=== PATIENT | female | born 1955 | race Caucasian/White ===

== ENCOUNTER 2017-06-27 09:00 | Outpatient (RCR) | payer OTHER, SELFPAY ==
[2017-06-20 08:55] VITALS: BP 141/103; PULSE 100; RESP 18; TEMP 37.2; BMI 68.3
--- NOTE | 2017-06-20 09:57 | PCM.WC.HP ---
(1) soft tissue radiation injury Status: Chronic Current Visit: Yes (2) Soft tissue radionecrosis Status: Chronic Current Visit: Yes Code(s): L59.8 - Other specified disorders of the skin and subcutaneous tissue related to radiation; Y84.2 - Radiological procedure and radiotherapy as the cause of abnormal reaction of the patient, or of later complication, without mention of misadventure at the time of the procedure (3) Amputee, above knee Status: Chronic Current Visit: Yes Qualifiers: Laterality: right Qualified Code(s): Z89.611 - Acquired absence of right leg above knee Code(s): Z89.619 - Acquired absence of unspecified leg above knee (4) Obesity (BMI 30.0-34.9) Status: Chronic Current Visit: Yes Code(s): E66.9 - Obesity, unspecified (5) Ulcer of right groin Status: Acute Current Visit: Yes Qualifiers: Non-pressure ulcer stage: with fat layer exposed Qualified Code(s): L98.492 - Non-pressure chronic ulcer of skin of other sites with fat layer exposed Code(s): L98.499 - Non-pressure chronic ulcer of skin of other sites with unspecified severity (6) GERD (gastroesophageal reflux disease) Status: Chronic Current Visit: No Code(s): K21.9 - Gastro-esophageal reflux disease without esophagitis (7) Hyperlipidemia Status: Chronic Current Visit: No Code(s): E78.5 - Hyperlipidemia, unspecified (8) History of melanoma Status: Chronic Current Visit: Yes Code(s): Z85.820 - Personal history of malignant melanoma of skin (9) History of uterine cancer Status: Chronic Current Visit: No Code(s): Z85.42 - Personal history of malignant neoplasm of other parts of uterus History of Present Illness Date of Service: 06/20/17 Chief Complaint: 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 The patient underwent excision of her melanoma with lymphadenectomy in the right groin. She also underwent lengthy radiation treatments at the [facility] in [place], [place]. Melanoma recurred, patient was subsequently treated with monoclonal antibodies in 1984. 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 Treatment included local ulcer care and hyperbaric oxygen therapy. She underwent a total of nearly 90 treatments of hyperbaric oxygen therapy. It is known that she tolerated the therapies well, and derived significant benefit. She relates no history of claustrophobia, or other complications related to the hyperbaric oxygen therapy treatments. She has no history of barotrauma to lungs, ears, etc. Her medical history has been reviewed, without any evidence of contraindications to hyperbaric oxygen therapy. Past Medical History Past Medical History: Chronic Problems soft tissue radiation injury (Chronic) Soft tissue radionecrosis (Chronic) Amputee, above knee (Chronic) Obesity (BMI 30.0-34.9) (Chronic) GERD (gastroesophageal reflux disease) (Chronic) Hyperlipidemia (Chronic) History of melanoma (Chronic) History of uterine cancer (Chronic) Past Medical History: Patient has a history of hyperlipidemia, gastroesophageal reflux disease, and melanoma of the right calf. She also has a history of uterine cancer, for which she is undergone prior total hysterectomy in 2000. Patient's history is negative for myocardial infarction, congestive heart failure, hypertension, cerebrovascular accident, diabetes mellitus, pulmonary disease, renal disease, and thyroid disease. Surgical History: - - Patient has previously undergone total hysterectomy. She is undergone excision of melanoma from the right calf, with lymphadenectomy of the right groin in the s. She subsequently required surgeries of the right thigh related to osteomyelitis, MRSA infection, and radiation injury to the right femoral artery. Ultimately, the patient required right above-knee amputation, performed in 2000. She also has a remote history of open reduction and internal fixation of a right ankle fracture. Allergies/Adverse Reactions: Allergies No Known Allergies Allergy (Verified 06/20/17 09:22) Home Medications: Ambulatory Orders Medication Instructions Recorded Famotidine 20 mg PO 06/20/17 Pravastatin [Pravachol] 20 mg PO DAILY 06/20/17 - Family History Maternal - - The patient's mother is 98 years of age and relatively healthy. The patient's father at age of 79 with a history of cardiomyopathy. Social History: The patient is . She denies the use of tobacco products, but is a former smoker. She consumes several mixed drinks daily. 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 Lives: Alone Smoking Status: Former smoker Tobacco Use: Non-smoker Drugs: None Review of Systems Constitutional: Denies: Chills, Fever, Weight Change Eyes: Denies: Pain, Vision Change HEENT: Denies: Difficulty Hearing, Difficulty Swallowing, Sinus Congestion Cardiovascular: Denies: Chest Pain, Palpitations Respiratory: Denies: Cough, Shortness of Breath Gastrointestinal: Denies: Diarrhea, Nausea, Vomiting Genitourinary: Denies: Dysuria, Hematuria Endocrine: Denies: Heat/ Cold Intolerance, Polydipsia, Polyuria Hematologic/ Lymphatic: Denies: Easy Bruising, Easy Bleeding - Physical Exam Vital Signs Temp Pulse Resp BP 98.9 F 100 18 141/103 H 06/20/17 08:55 06/20/17 08:55 06/20/17 08:55 06/20/17 08:55 General: Alert, Oriented x3, Cooperative, No apparent distress, Well developed, Well nourished HEENT: Atraumatic, PERRLA, EOMI, Normocephalic, TM's Clear, - - Otoscopy has been performed, and tympanic membranes appeared normal. Oral: Moist Mucosa, No Gingival or Mucosal Lesions/ Ulcerations Neck: Supple, No JVD, Negative Carotid Bruits, No Nodes, No Nuchal Rigidity, Trachea Midline Lungs: Clear to auscultation, Normal air movement, No rhonchi, No wheeze, No rales Cardiovascular: Regular rate, Regular Rhythm, Normal S1, Normal S2, No murmurs Abdomen: Soft, Non Tender, Non-Distended Extremities: No clubbing, No cyanosis, No edema, No Calf Tenderness - Left, - - A well-healed right above-knee amputation is noted. Patient has scarring in the right upper thigh and right groin. There is a small open ulceration in the right groin crease. There is no obvious sign of infection or cellulitis. There is a moderate amount of biofilm bioburden. Dimensions are documented elsewhere. Wound Measurements and Assessment WC - Nurse 1 - General Ulcer Measurement Start: 06/20/17 08:32 Freq: Status: Active Protocol: Activity Type Activity Date Activity User E-Sign Co-Sign Detail Recorded Client Recorded Date Recorded By Document 06/20/17 08:55 DL [id number] 06/20/17 09:18 DL 06/20/17 08:55 Wound Center Nurse 1 [Ulcer Assessment Protocol: WC.WD.LOC] #1 R Groin -Current Size (cm) - Length 1.6 -Current Size (cm) - Width 0.3 -Current Size (cm) - Depth 0.1 -Total Square Cm 0.48 -Photo Taken Yes -Classification - Thickness Unclassifiable (Eschar Covered ) -Exudate Amt None Present (0 %) -Wound Margin Thickened -Granulation Amt None Present (0 %) -Necrosis Amt Large (67-100%) -Necrotic Tissue Type Adherent Slough -Texture (Blanche-wound Skin Appearance) Scarring -Moisture (Blanche-wound Skin Appearance No Abnormality ) -Color (Blanche-wound Skin Appearance) No Abnormality -Temperature (Blanche-wound Skin No Abnormality Appearance) (Pt Warm) -Ulcer Cleansing Rinsed/ Irrigated with Saline -Foul Odor after Cleansing No -Anesthetic Used 4% Lidocaine Solution - Nurse 2 - General Ulcer CM Notes Start: 06/20/17 08:32 Freq: Status: Active Protocol: Activity Type Activity Date Activity User E-Sign Co-Sign Detail Recorded Client Recorded Date Recorded By Document 06/20/17 09:39 [id number] 06/20/17 09:50 06/20/17 09:39 Wound Center Nurse 2 [Procedure/Treatment] -Time 09:42 -Correct Patient Yes -Correct Side, Site, Position Yes -Correct Procedure Yes -Procedure Performed Yes -Type of Procedure Debridement -Clinical Debridement Subcutaneous -Post Debridement Size (cm) - Length 1.7 -Post Debridement Size (cm) - Width 0.4 -Post Debridement Size (cm) - Depth 0.1 -Total Square Cm 0.68 -Wound/Ulcer Outcome Not Healed -Ulcer Cleansing Rinsed/ Irrigated with Saline -Foul Odor after Cleansing No -Bioengineered Tissue No -Cetacaine [place] No -Topical Lidocaine (%) 4 -Lidocaine (ml) 5 -Bleeding Controlled with Pressure -Treatment Response Procedure Tolerated Well [See Physician Procedure note for Specifics] Pain Scale: 0-10 Numeric [Pain] -Is Patient Pain Free? Yes Neurological: Cranial nerves II-XII grossly intact, Neuro grossly intact Psych/Mental Status: Normal Affect, Appropriate, Alert and oriented to time, place, person, mood and affect Debridement Note Post-Debridement Measurements/Treatment WC - Nurse 2 - General Ulcer CM Notes Start: 06/20/17 08:32 Freq: Status: Active Protocol: Activity Type Activity Date Activity User E-Sign Co-Sign Detail Recorded Client Recorded Date Recorded By Document 06/20/17 09:39 [id number] 06/20/17 09:50 06/20/17 09:39 Wound Center Nurse 2 #1 R Groin -Time 09:42 -Correct Patient Yes -Correct Side, Site, Position Yes -Correct Procedure Yes -Procedure Performed Yes -Type of Procedure Debridement -Clinical Debridement Subcutaneous -Post Debridement Size (cm) - Length 1.7 -Post Debridement Size (cm) - Width 0.4 -Post Debridement Size (cm) - Depth 0.1 -Total Square Cm 0.68 -Wound/Ulcer Outcome Not Healed -Ulcer Cleansing Rinsed/ Irrigated with Saline -Foul Odor after Cleansing No -Bioengineered Tissue No -Cetacaine [place] No -Topical Lidocaine (%) 4 -Lidocaine (ml) 5 -Bleeding Controlled with Pressure -Treatment Response Procedure Tolerated Well Pain Scale: 0-10 Numeric Is Patient Pain Free? Yes Laterality: Right - Groin Type of Debridement: Excisional debridement Anesthesia Used: 4% Lidocaine Solution Depth: Down to and including healthy tissue, in the subcutaneous layer Percentage of wound debrided: 100 Instrument Used: 3mm curette Severity: Fat Layer Exposed Amount of bleeding with debridement: Mild Bleeding Controlled with: Compression and gauze Patient tolerated procedure well Assessment/Plan Active Problems soft tissue radiation injury (Chronic) Soft tissue radionecrosis (Chronic) Amputee, above knee (Chronic) Obesity (BMI 30.0-34.9) (Chronic) Ulcer of right groin (Acute) History of melanoma (Chronic) Assessment: This is a 62-year-old female with a somewhat complicated and complex past medical history, documented above. In the 1969's, she was diagnosed with malignant melanoma of the right calf, with metastasis to lymph nodes in the right groin. She underwent excision of the melanoma with right groin lymphadenectomy. She was subsequently treated with a long series of radiation treatments to the right groin. As result, she has developed soft tissue radiation injury, and has previously been treated at our wound center in the past with a series of approximately 90 hyperbaric oxygen therapy treatments, in 2011. She presents at this time with apparent recurrence of soft tissue radionecrosis in the right groin. Plan: Initial treatment is to be by means of collagen hydrogel applied by the patient topically on a daily basis. Patient is to return weekly, at which time it is anticipated that serial debridements will be performed. We are to obtain routine laboratory assessment, which will allow for nutritional assessment, etc. The patient appears to be a candidate for hyperbaric oxygen therapy for soft tissue radionecrosis, and efforts will be made to preauthorized such treatments. Because the patient has undergone such treatments in the past, and has tolerated them without difficulty, there appeared to be no contraindications to such intervention. The patient has a full understanding of the indications for and the risks of hyperbaric oxygen therapy, and has indicated her desire to proceed. Influenza vaccine was not administered today. Patient is not a smoker. She stands 5 feet 7 inches tall. She weighs 198 pounds. Her BMI is 31, which places her in a class I category. Weight loss has been recommended. She is to collaborate with her primary care physician in this regard.
--- NOTE | 2017-06-20 10:09 | HP.PCM_ITS ---
(1) soft tissue radiation injury Status: Chronic Current Visit: Yes (2) Soft tissue radionecrosis Status: Chronic Current Visit: Yes Code(s): L59.8 - Other specified disorders of the skin and subcutaneous tissue related to radiation; Y84.2 - Radiological procedure and radiotherapy as the cause of abnormal reaction of the patient, or of later complication, without mention of misadventure at the time of the procedure (3) Amputee, above knee Status: Chronic Current Visit: Yes Qualifiers: Laterality: right Qualified Code(s): Z89.611 - Acquired absence of right leg above knee Code(s): Z89.619 - Acquired absence of unspecified leg above knee (4) Obesity (BMI 30.0-34.9) Status: Chronic Current Visit: Yes Code(s): E66.9 - Obesity, unspecified (5) Ulcer of right groin Status: Acute Current Visit: Yes Qualifiers: Non-pressure ulcer stage: with fat layer exposed Qualified Code(s): L98.492 - Non-pressure chronic ulcer of skin of other sites with fat layer exposed Code(s): L98.499 - Non-pressure chronic ulcer of skin of other sites with unspecified severity (6) GERD (gastroesophageal reflux disease) Status: Chronic Current Visit: No Code(s): K21.9 - Gastro-esophageal reflux disease without esophagitis (7) Hyperlipidemia Status: Chronic Current Visit: No Code(s): E78.5 - Hyperlipidemia, unspecified (8) History of melanoma Status: Chronic Current Visit: Yes Code(s): Z85.820 - Personal history of malignant melanoma of skin (9) History of uterine cancer Status: Chronic Current Visit: No Code(s): Z85.42 - Personal history of malignant neoplasm of other parts of uterus History of Present Illness Date of Service: 06/20/17 Chief Complaint: 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 The patient underwent excision of her melanoma with lymphadenectomy in the right groin. She also underwent lengthy radiation treatments at the [facility] in [place], [place]. Melanoma recurred, patient was subsequently treated with monoclonal antibodies in 1984. 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 Treatment included local ulcer care and hyperbaric oxygen therapy. She underwent a total of nearly 90 treatments of hyperbaric oxygen therapy. It is known that she tolerated the therapies well, and derived significant benefit. She relates no history of claustrophobia, or other complications related to the hyperbaric oxygen therapy treatments. She has no history of barotrauma to lungs , ears, etc. Her medical history has been reviewed, without any evidence of contraindications to hyperbaric oxygen therapy. Past Medical History Past Medical History: Chronic Problems soft tissue radiation injury (Chronic) Soft tissue radionecrosis (Chronic) Amputee, above knee (Chronic) Obesity (BMI 30.0-34.9) (Chronic) GERD (gastroesophageal reflux disease) (Chronic) Hyperlipidemia (Chronic) History of melanoma (Chronic) History of uterine cancer (Chronic) Past Medical History: Patient has a history of hyperlipidemia, gastroesophageal reflux disease, and melanoma of the right calf. She also has a history of uterine cancer, for which she is undergone prior total hysterectomy in 2000. Patient's history is negative for myocardial infarction, congestive heart failure, hypertension, cerebrovascular accident, diabetes mellitus, pulmonary disease, renal disease, and thyroid disease. Surgical History: - - Patient has previously undergone total hysterectomy. She is undergone excision of melanoma from the right calf, with lymphadenectomy of the right groin in the s. She subsequently required surgeries of the right thigh related to osteomyelitis, MRSA infection, and radiation injury to the right femoral artery. Ultimately, the patient required right above-knee amputation, performed in 2000. She also has a remote history of open reduction and internal fixation of a right ankle fracture. Allergies/Adverse Reactions: Allergies No Known Allergies Allergy (Verified 06/20/17 09:22) Home Medications: Ambulatory Orders Medication Instructions Recorded Famotidine 20 mg PO 06/20/17 Pravastatin [Pravachol] 20 mg PO DAILY 06/20/17 - Family History Maternal - - The patient's mother is 98 years of age and relatively healthy. The patient 's father at age of 79 with a history of cardiomyopathy. Social History: The patient is . She denies the use of tobacco products , but is a former smoker. She consumes several mixed drinks daily. 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 Lives: Alone Smoking Status: Former smoker Tobacco Use: Non-smoker Drugs: None Review of Systems Constitutional: Denies: Chills, Fever, Weight Change Eyes: Denies: Pain, Vision Change HEENT: Denies: Difficulty Hearing, Difficulty Swallowing, Sinus Congestion Cardiovascular: Denies: Chest Pain, Palpitations Respiratory: Denies: Cough, Shortness of Breath Gastrointestinal: Denies: Diarrhea, Nausea, Vomiting Genitourinary: Denies: Dysuria, Hematuria Endocrine: Denies: Heat/ Cold Intolerance, Polydipsia, Polyuria Hematologic/ Lymphatic: Denies: Easy Bruising, Easy Bleeding - Physical Exam Vital Signs Temp Pulse Resp BP 98.9 F 100 18 141/103 H 06/20/17 08:55 06/20/17 08:55 06/20/17 08:55 06/20/17 08:55 General: Alert, Oriented x3, Cooperative, No apparent distress, Well developed, Well nourished HEENT: Atraumatic, PERRLA, EOMI, Normocephalic, TM's Clear, - - Otoscopy has been performed, and tympanic membranes appeared normal. Oral: Moist Mucosa, No Gingival or Mucosal Lesions/ Ulcerations Neck: Supple, No JVD, Negative Carotid Bruits, No Nodes, No Nuchal Rigidity, Trachea Midline Lungs: Clear to auscultation, Normal air movement, No rhonchi, No wheeze, No rales Cardiovascular: Regular rate, Regular Rhythm, Normal S1, Normal S2, No murmurs Abdomen: Soft, Non Tender, Non-Distended Extremities: No clubbing, No cyanosis, No edema, No Calf Tenderness - Left, - - A well-healed right above-knee amputation is noted. Patient has scarring in the right upper thigh and right groin. There is a small open ulceration in the right groin crease. There is no obvious sign of infection or cellulitis. There is a moderate amount of biofilm bioburden. Dimensions are documented elsewhere. Wound Measurements and Assessment WC - Nurse 1 - General Ulcer Measurement Start: 06/20/17 08:32 Freq: Status: Active Protocol: Activity Type Activity Date Activity User E-Sign Co-Sign Detail Recorded Client Recorded Date Recorded By Document 06/20/17 08:55 DL [id number] 06/20/17 09:18 DL 06/20/17 08:55 Wound Center Nurse 1 [Ulcer Assessment Protocol: WC.WD.LOC] #1 R Groin -Current Size (cm) - Length 1.6 -Current Size (cm) - Width 0.3 -Current Size (cm) - Depth 0.1 -Total Square Cm 0.48 -Photo Taken Yes -Classification - Thickness Unclassifiable (Eschar Covered ) -Exudate Amt None Present (0 %) -Wound Margin Thickened -Granulation Amt None Present (0 %) -Necrosis Amt Large (67-100%) -Necrotic Tissue Type Adherent Slough -Texture (Blanche-wound Skin Appearance) Scarring -Moisture (Blanche-wound Skin Appearance No Abnormality ) -Color (Blanche-wound Skin Appearance) No Abnormality -Temperature (Blanche-wound Skin No Abnormality Appearance) (Pt Warm) -Ulcer Cleansing Rinsed/ Irrigated with Saline -Foul Odor after Cleansing No -Anesthetic Used 4% Lidocaine Solution - Nurse 2 - General Ulcer CM Notes Start: 06/20/17 08:32 Freq: Status: Active Protocol: Activity Type Activity Date Activity User E-Sign Co-Sign Detail Recorded Client Recorded Date Recorded By Document 06/20/17 09:39 [id number] 06/20/17 09:50 06/20/17 09:39 Wound Center Nurse 2 [Procedure/Treatment] -Time 09:42 -Correct Patient Yes -Correct Side, Site, Position Yes -Correct Procedure Yes -Procedure Performed Yes -Type of Procedure Debridement -Clinical Debridement Subcutaneous -Post Debridement Size (cm) - Length 1.7 -Post Debridement Size (cm) - Width 0.4 -Post Debridement Size (cm) - Depth 0.1 -Total Square Cm 0.68 -Wound/Ulcer Outcome Not Healed -Ulcer Cleansing Rinsed/ Irrigated with Saline -Foul Odor after Cleansing No -Bioengineered Tissue No -Cetacaine [place] No -Topical Lidocaine (%) 4 -Lidocaine (ml) 5 -Bleeding Controlled with Pressure -Treatment Response Procedure Tolerated Well [See Physician Procedure note for Specifics] Pain Scale: 0-10 Numeric [Pain] -Is Patient Pain Free? Yes Neurological: Cranial nerves II-XII grossly intact, Neuro grossly intact Psych/Mental Status: Normal Affect, Appropriate, Alert and oriented to time, place, person, mood and affect Debridement Note Post-Debridement Measurements/Treatment WC - Nurse 2 - General Ulcer CM Notes Start: 06/20/17 08:32 Freq: Status: Active Protocol: Activity Type Activity Date Activity User E-Sign Co-Sign Detail Recorded Client Recorded Date Recorded By Document 06/20/17 09:39 [id number] 06/20/17 09:50 06/20/17 09:39 Wound Center Nurse 2 #1 R Groin -Time 09:42 -Correct Patient Yes -Correct Side, Site, Position Yes -Correct Procedure Yes -Procedure Performed Yes -Type of Procedure Debridement -Clinical Debridement Subcutaneous -Post Debridement Size (cm) - Length 1.7 -Post Debridement Size (cm) - Width 0.4 -Post Debridement Size (cm) - Depth 0.1 -Total Square Cm 0.68 -Wound/Ulcer Outcome Not Healed -Ulcer Cleansing Rinsed/ Irrigated with Saline -Foul Odor after Cleansing No -Bioengineered Tissue No -Cetacaine [place] No -Topical Lidocaine (%) 4 -Lidocaine (ml) 5 -Bleeding Controlled with Pressure -Treatment Response Procedure Tolerated Well Pain Scale: 0-10 Numeric Is Patient Pain Free? Yes Laterality: Right - Groin Type of Debridement: Excisional debridement Anesthesia Used: 4% Lidocaine Solution Depth: Down to and including healthy tissue, in the subcutaneous layer Percentage of wound debrided: 100 Instrument Used: 3mm curette Severity: Fat Layer Exposed Amount of bleeding with debridement: Mild Bleeding Controlled with: Compression and gauze Patient tolerated procedure well Assessment/Plan Active Problems soft tissue radiation injury (Chronic) Soft tissue radionecrosis (Chronic) Amputee, above knee (Chronic) Obesity (BMI 30.0-34.9) (Chronic) Ulcer of right groin (Acute) History of melanoma (Chronic) Assessment: This is a 62-year-old female with a somewhat complicated and complex past medical history, documented above. In the 1969's, she was diagnosed with malignant melanoma of the right calf, with metastasis to lymph nodes in the right groin. She underwent excision of the melanoma with right groin lymphadenectomy. She was subsequently treated with a long series of radiation treatments to the right groin. As result, she has developed soft tissue radiation injury, and has previously been treated at our wound center in the past with a series of approximately 90 hyperbaric oxygen therapy treatments , in 2011. She presents at this time with apparent recurrence of soft tissue radionecrosis in the right groin. Plan: Initial treatment is to be by means of collagen hydrogel applied by the patient topically on a daily basis. Patient is to return weekly, at which time it is anticipated that serial debridements will be performed. We are to obtain routine laboratory assessment, which will allow for nutritional assessment, etc. The patient appears to be a candidate for hyperbaric oxygen therapy for soft tissue radionecrosis, and efforts will be made to preauthorized such treatments. Because the patient has undergone such treatments in the past, and has tolerated them without difficulty, there appeared to be no contraindications to such intervention. The patient has a full understanding of the indications for and the risks of hyperbaric oxygen therapy, and has indicated her desire to proceed. Influenza vaccine was not administered today. Patient is not a smoker. She stands 5 feet 7 inches tall. She weighs 198 pounds. Her BMI is 31, which places her in a class I category. Weight loss has been recommended. She is to collaborate with her primary care physician in this regard.
[2017-06-21 18:50] LABS: Hematocrit 43.2 % (37-47); Hemoglobin 14.5 g/dl (12.0-15.0); Mean Corp Hgb Conc 33.6 g/gl (32-36); Mean Corpuscular Hgb 29.6 pg (27.0-32.0); Mean Corpuscular Volume 88.2 fL (81-99); Platelet Count 323 K/mm3 (150-450); RBC Distribution Width CV 13.7 % (11.6-14.6); RBC Distribution Width SD 43.3 fl (35.1-43.9); White Blood Count 14.7 K/mm3 (4.4-11.0)
[2017-06-21 18:51] LABS: Scan Indicated on CBC? Y/N NO
[2017-06-21 19:16] LABS: ALB/GLOB Ratio 1.1 RATIO (0.9-2.4); AST(SGOT) 12 U/L (15-37); Alanine Aminotransfer ALT/SGPT 30 U/L (12-78); Albumin, Serum 4.4 g/dL (3.4-5.0); Alkaline Phosphatase 85 U/L (45-117); Anion Gap 9 (5-15); BUN 16 mg/dL (7-18); BUN/Creat Ratio 27.5 RATIO (10-20); Calcium,Total 9.3 mg/dL (8.5-10.1); Chloride 103 mmol/L (98-107); Creatinine, Serum 0.58 mg/dL (0.55-1.02); EST Glomerular Filtration Rate 111 mL/min (>60); Est Glom Filt Rate - Afr Amer 135 mL/min (>60); Globulin 3.9 g/dL (2.2-4.2); Glucose 109 mg/dL (70-110); Potassium 3.5 mmol/L (3.5-5.1); Prealbumin 36.5 mg/dL (20.0-40.0); Protein, Total 8.3 g/dL (6.4-8.2); Sodium Level 137 mmol/L (136-145)
[2017-06-27 09:12] VITALS: BP 127/72; PULSE 90; RESP 18; TEMP 35.9; BMI 68.3
--- NOTE | 2017-06-27 09:44 | PCM.WC.HP ---
(1) soft tissue radiation injury Status: Chronic Current Visit: Yes (2) Soft tissue radionecrosis Status: Chronic Current Visit: Yes Code(s): L59.8 - Other specified disorders of the skin and subcutaneous tissue related to radiation; Y84.2 - Radiological procedure and radiotherapy as the cause of abnormal reaction of the patient, or of later complication, without mention of misadventure at the time of the procedure (3) Amputee, above knee Status: Chronic Current Visit: Yes Qualifiers: Laterality: right Qualified Code(s): Z89.611 - Acquired absence of right leg above knee Code(s): Z89.619 - Acquired absence of unspecified leg above knee (4) Obesity (BMI 30.0-34.9) Status: Chronic Current Visit: Yes Code(s): E66.9 - Obesity, unspecified (5) Ulcer of right groin Status: Acute Current Visit: Yes Qualifiers: Non-pressure ulcer stage: with fat layer exposed Qualified Code(s): L98.492 - Non-pressure chronic ulcer of skin of other sites with fat layer exposed Code(s): L98.499 - Non-pressure chronic ulcer of skin of other sites with unspecified severity (6) GERD (gastroesophageal reflux disease) Status: Chronic Current Visit: No Code(s): K21.9 - Gastro-esophageal reflux disease without esophagitis (7) Hyperlipidemia Status: Chronic Current Visit: No Code(s): E78.5 - Hyperlipidemia, unspecified (8) History of melanoma Status: Chronic Current Visit: Yes Code(s): Z85.820 - Personal history of malignant melanoma of skin (9) History of uterine cancer Status: Chronic Current Visit: No Code(s): Z85.42 - Personal history of malignant neoplasm of other parts of uterus History of Present Illness Date of Service: 06/27/17 Chief Complaint: 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 Of significance, the patient was diagnosed with melanoma of the right calf in the s. 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 The patient underwent excision of her melanoma with lymphadenectomy in the right groin. She also underwent lengthy radiation treatments at the [facility] in [place], [place]. Melanoma recurred, and the patient was subsequently treated with monoclonal antibodies in 1984. 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 Treatment included local ulcer care and hyperbaric oxygen therapy. She underwent a total of nearly 90 treatments of hyperbaric oxygen therapy. It is known that she tolerated the therapies well, and derived significant benefit. She relates no history of claustrophobia, or other complications related to the hyperbaric oxygen therapy treatments. She has no history of barotrauma to lungs, ears, etc. Her medical history has been reviewed, without any evidence of contraindications to hyperbaric oxygen therapy. 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 She is undergone excision of melanoma from the right calf, with lymphadenectomy of the right groin in the 1969's. She subsequently required surgeries of the right thigh related to osteomyelitis, MRSA infection, and radiation injury to the right femoral artery. Ultimately, the patient required right above-knee amputation, performed in 2000. She also has a remote history of open reduction and internal fixation of a right ankle fracture. Allergies/Adverse Reactions: Allergies No Known Allergies Allergy (Verified 06/20/17 09:22) Home Medications: Ambulatory Orders Medication Instructions Recorded Famotidine 20 mg PO 06/20/17 Pravastatin [Pravachol] 20 mg PO DAILY 06/20/17 - Family History Maternal - - The patient's mother is 98 years of age and relatively healthy. The patient's father at age of 79 with a history of cardiomyopathy. Lives: Alone Smoking Status: Former smoker Tobacco Use: Non-smoker Drugs: None Review of Systems Constitutional: Denies: Chills, Fever, Weight Change Eyes: Denies: Pain, Vision Change HEENT: Denies: Difficulty Hearing, Difficulty Swallowing, Sinus Congestion Cardiovascular: Denies: Chest Pain, Palpitations Respiratory: Denies: Cough, Shortness of Breath Gastrointestinal: Denies: Diarrhea, Nausea, Vomiting Genitourinary: Denies: Dysuria, Hematuria Endocrine: Denies: Heat/ Cold Intolerance, Polydipsia, Polyuria Hematologic/ Lymphatic: Denies: Easy Bruising, Easy Bleeding - Physical Exam Vital Signs Temp Pulse Resp BP 96.6 F L 90 18 127/72 H 06/27/17 09:12 06/27/17 09:12 06/27/17 09:12 06/27/17 09:12 General: Alert, Oriented x3, Cooperative, No apparent distress, Well developed, Well nourished HEENT: Atraumatic, PERRLA, EOMI, Normocephalic Oral: Moist Mucosa Neck: No JVD Lungs: Normal air movement Abdomen: Non-Distended Extremities: No clubbing, No cyanosis, No edema, - - There is some chronic erythema in the right groin, thought to be due to radiation changes. The ulceration in the right groin reveals no evidence of infection or cellulitis. However, the patient the ulceration appears somewhat ischemic. Dimensions are documented elsewhere. Wound Measurements and Assessment - Nurse 1 - General Ulcer Measurement Start: 06/20/17 08:32 Freq: Status: Active Protocol: Activity Type Activity Date Activity User E-Sign Co-Sign Detail Recorded Client Recorded Date Recorded By Document 06/27/17 09:12 [id number] 06/27/17 09:15 06/27/17 09:12 Wound Center Nurse 1 [Ulcer Assessment Protocol: KISHA.WD.LOC] #1 R Groin -Combined with other wound No -Current Size (cm) - Length 1.2 -Current Size (cm) - Width 0.2 -Current Size (cm) - Depth 0.1 -Total Square Cm 0.24 -Photo Taken No -Epithelialization None Present -Tunneling No -Undermining/Tunneling No -Circular Undermining No -Classification - Thickness Full Thickness without Exposed Support Structure -Exudate Amt Small (1-33%) -Exudate Type Serosanguineous -Wound Margin Fibrotic Scar, Thickened Scar -Granulation Amt None Present (0 %) -Granulation Quality N/A -Necrosis Amt None Present (0 %) -Necrotic Tissue Type Adherent Slough -Structure Exposed None/Limited to Skin Breakdown -Texture (Blanche-wound Skin Appearance) Scarring -Moisture (Blanche-wound Skin Appearance Dry/Scaly ) -Color (Blanche-wound Skin Appearance) Erythema -Temperature (Blanche-wound Skin No Abnormality Appearance) (Pt Warm) -Tenderness on Palpation (Blanche-wound No Skin Appearance) -Ulcer Cleansing Rinsed/ Irrigated with Saline -Foul Odor after Cleansing No [Edema Assessment] -Lower Limb Edema Present No WC - Nurse 2 - General Ulcer CM Notes Start: 06/20/17 08:32 Freq: Status: Active Protocol: Activity Type Activity Date Activity User E-Sign Co-Sign Detail Recorded Client Recorded Date Recorded By Document 06/27/17 09:28 [id number] 06/27/17 09:43 06/27/17 09:28 Wound Center Nurse 2 [Procedure/Treatment] #1 R Groin -Time 09:28 -Correct Patient Yes -Correct Side, Site, Position Yes -Correct Procedure Yes -Procedure Performed Yes -Type of Procedure Debridement -Clinical Debridement Subcutaneous -Post Debridement Size (cm) - Length 1.3 -Post Debridement Size (cm) - Width 0.3 -Post Debridement Size (cm) - Depth 0.1 -Total Square Cm 0.39 -Wound/Ulcer Outcome Not Healed -Ulcer Cleansing Rinsed/ Irrigated with Saline -Foul Odor after Cleansing No -Cetacaine [place] No -Topical Lidocaine (%) 4 -Lidocaine (ml) 5 -Bleeding Controlled with NA -Treatment Response Procedure Tolerated Well [See Physician Procedure note for Specifics] Pain Scale: 0-10 Numeric [Pain] -Is Patient Pain Free? Yes Neurological: Cranial nerves II-XII grossly intact, Neuro grossly intact Psych/Mental Status: Normal Affect, Appropriate, Alert and oriented to time, place, person, mood and affect Debridement Note Post-Debridement Measurements/Treatment WC - Nurse 2 - General Ulcer CM Notes Start: 06/20/17 08:32 Freq: Status: Active Protocol: Activity Type Activity Date Activity User E-Sign Co-Sign Detail Recorded Client Recorded Date Recorded By Document 06/20/17 09:39 [id number] 06/20/17 09:50 JS Document 06/27/17 09:28 [id number] 06/27/17 09:43 06/20/17 06/27/17 09:39 09:28 Wound Center Nurse 2 #1 R Groin -Time 09:42 09:28 -Correct Patient Yes Yes -Correct Side, Site, Position Yes Yes -Correct Procedure Yes Yes -Procedure Performed Yes Yes -Type of Procedure Debridement Debridement -Clinical Debridement Subcutaneous Subcutaneous -Post Debridement Size (cm) - Length 1.7 1.3 -Post Debridement Size (cm) - Width 0.4 0.3 -Post Debridement Size (cm) - Depth 0.1 0.1 -Total Square Cm 0.68 0.39 -Wound/Ulcer Outcome Not Healed Not Healed -Ulcer Cleansing Rinsed/ Rinsed/ Irrigated with Irrigated with Saline Saline -Foul Odor after Cleansing No No -Bioengineered Tissue No -Cetacaine [place] No No -Topical Lidocaine (%) 4 4 -Lidocaine (ml) 5 5 -Bleeding Controlled with Pressure NA -Treatment Response Procedure Procedure Tolerated Well Tolerated Well Pain Scale: 0-10 Numeric Is Patient Pain Free? Yes Yes Laterality: Right - Groin Type of Debridement: Excisional debridement Anesthesia Used: 4% Lidocaine Solution Depth: Down to and including healthy tissue, in the subcutaneous layer Percentage of wound debrided: 100 Instrument Used: 3mm curette Severity: Fat Layer Exposed Amount of bleeding with debridement: Mild Bleeding Controlled with: Compression and gauze Patient tolerated procedure well Assessment/Plan Active Problems soft tissue radiation injury (Chronic) Soft tissue radionecrosis (Chronic) Amputee, above knee (Chronic) Obesity (BMI 30.0-34.9) (Chronic) Ulcer of right groin (Acute) History of melanoma (Chronic) Assessment: This is a 62-year-old female with a somewhat complicated and complex past medical history, documented above. In the 1970's, she was diagnosed with malignant melanoma of the right calf, with metastasis to lymph nodes in the right groin. She underwent excision of the melanoma with right groin lymphadenectomy. She was subsequently treated with a long series of radiation treatments to the right groin. As result, she has developed soft tissue radiation injury, and has previously been treated at our wound center in the past with a series of approximately 90 hyperbaric oxygen therapy treatments, in 2011. She presents at this time with apparent recurrence of soft tissue radionecrosis in the right groin. Plan: We are to transition to the use of collagen hydrogel, as the base of the ulceration appears somewhat ischemic and with evidence of nonviable necrotic tissue. This nonviable tissue was not easily removed by means of debridement today. The patient's recent laboratory studies have been reviewed, and it is noted that her white blood count was 14.7. There is no obvious sign of infection. However, we have obtained swab cultures of the wound, both aerobic and anaerobic. We will await the results of cultures. Patient is to return in 2 weeks. We anticipate that serial debridements will continue. The patient appears to be a candidate for hyperbaric oxygen therapy for soft tissue radionecrosis, and efforts will be made to preauthorized such treatments. Because the patient has undergone such treatments in the past, and has tolerated them without difficulty, there appeared to be no contraindications to such intervention. The patient has a full understanding of the indications for and the risks of hyperbaric oxygen therapy, and has indicated her desire to proceed. Influenza vaccine was not administered today. Patient is not a smoker. She stands 5 feet 7 inches tall. She weighs 198 pounds. Her BMI is 31, which places her in a class I category. Weight loss has been recommended. She is to collaborate with her primary care physician in this regard.
--- NOTE | 2017-06-27 09:53 | HP.PCM_ITS ---
(1) soft tissue radiation injury Status: Chronic Current Visit: Yes (2) Soft tissue radionecrosis Status: Chronic Current Visit: Yes Code(s): L59.8 - Other specified disorders of the skin and subcutaneous tissue related to radiation; Y84.2 - Radiological procedure and radiotherapy as the cause of abnormal reaction of the patient, or of later complication, without mention of misadventure at the time of the procedure (3) Amputee, above knee Status: Chronic Current Visit: Yes Qualifiers: Laterality: right Qualified Code(s): Z89.611 - Acquired absence of right leg above knee Code(s): Z89.619 - Acquired absence of unspecified leg above knee (4) Obesity (BMI 30.0-34.9) Status: Chronic Current Visit: Yes Code(s): E66.9 - Obesity, unspecified (5) Ulcer of right groin Status: Acute Current Visit: Yes Qualifiers: Non-pressure ulcer stage: with fat layer exposed Qualified Code(s): L98.492 - Non-pressure chronic ulcer of skin of other sites with fat layer exposed Code(s): L98.499 - Non-pressure chronic ulcer of skin of other sites with unspecified severity (6) GERD (gastroesophageal reflux disease) Status: Chronic Current Visit: No Code(s): K21.9 - Gastro-esophageal reflux disease without esophagitis (7) Hyperlipidemia Status: Chronic Current Visit: No Code(s): E78.5 - Hyperlipidemia, unspecified (8) History of melanoma Status: Chronic Current Visit: Yes Code(s): Z85.820 - Personal history of malignant melanoma of skin (9) History of uterine cancer Status: Chronic Current Visit: No Code(s): Z85.42 - Personal history of malignant neoplasm of other parts of uterus History of Present Illness Date of Service: 06/27/17 Chief Complaint: 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 Of significance, the patient was diagnosed with melanoma of the right calf in the s. 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 The patient underwent excision of her melanoma with lymphadenectomy in the right groin. She also underwent lengthy radiation treatments at the [facility] in [place], [place]. Melanoma recurred, and the patient was subsequently treated with monoclonal antibodies in 1984. 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 Treatment included local ulcer care and hyperbaric oxygen therapy. She underwent a total of nearly 90 treatments of hyperbaric oxygen therapy. It is known that she tolerated the therapies well, and derived significant benefit. She relates no history of claustrophobia, or other complications related to the hyperbaric oxygen therapy treatments. She has no history of barotrauma to lungs , ears, etc. Her medical history has been reviewed, without any evidence of contraindications to hyperbaric oxygen therapy. 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 She is undergone excision of melanoma from the right calf, with lymphadenectomy of the right groin in the 1969's. She subsequently required surgeries of the right thigh related to osteomyelitis, MRSA infection, and radiation injury to the right femoral artery. Ultimately, the patient required right above-knee amputation, performed in 2000. She also has a remote history of open reduction and internal fixation of a right ankle fracture. Allergies/Adverse Reactions: Allergies No Known Allergies Allergy (Verified 06/20/17 09:22) Home Medications: Ambulatory Orders Medication Instructions Recorded Famotidine 20 mg PO 06/20/17 Pravastatin [Pravachol] 20 mg PO DAILY 06/20/17 - Family History Maternal - - The patient's mother is 98 years of age and relatively healthy. The patient 's father at age of 79 with a history of cardiomyopathy. Lives: Alone Smoking Status: Former smoker Tobacco Use: Non-smoker Drugs: None Review of Systems Constitutional: Denies: Chills, Fever, Weight Change Eyes: Denies: Pain, Vision Change HEENT: Denies: Difficulty Hearing, Difficulty Swallowing, Sinus Congestion Cardiovascular: Denies: Chest Pain, Palpitations Respiratory: Denies: Cough, Shortness of Breath Gastrointestinal: Denies: Diarrhea, Nausea, Vomiting Genitourinary: Denies: Dysuria, Hematuria Endocrine: Denies: Heat/ Cold Intolerance, Polydipsia, Polyuria Hematologic/ Lymphatic: Denies: Easy Bruising, Easy Bleeding - Physical Exam Vital Signs Temp Pulse Resp BP 96.6 F L 90 18 127/72 H 06/27/17 09:12 06/27/17 09:12 06/27/17 09:12 06/27/17 09:12 General: Alert, Oriented x3, Cooperative, No apparent distress, Well developed, Well nourished HEENT: Atraumatic, PERRLA, EOMI, Normocephalic Oral: Moist Mucosa Neck: No JVD Lungs: Normal air movement Abdomen: Non-Distended Extremities: No clubbing, No cyanosis, No edema, - - There is some chronic erythema in the right groin, thought to be due to radiation changes. The ulceration in the right groin reveals no evidence of infection or cellulitis. However, the patient the ulceration appears somewhat ischemic. Dimensions are documented elsewhere. Wound Measurements and Assessment - Nurse 1 - General Ulcer Measurement Start: 06/20/17 08:32 Freq: Status: Active Protocol: Activity Type Activity Date Activity User E-Sign Co-Sign Detail Recorded Client Recorded Date Recorded By Document 06/27/17 09:12 [id number] 06/27/17 09:15 06/27/17 09:12 Wound Center Nurse 1 [Ulcer Assessment Protocol: KISHA.WD.LOC] #1 R Groin -Combined with other wound No -Current Size (cm) - Length 1.2 -Current Size (cm) - Width 0.2 -Current Size (cm) - Depth 0.1 -Total Square Cm 0.24 -Photo Taken No -Epithelialization None Present -Tunneling No -Undermining/Tunneling No -Circular Undermining No -Classification - Thickness Full Thickness without Exposed Support Structure -Exudate Amt Small (1-33%) -Exudate Type Serosanguineous -Wound Margin Fibrotic Scar, Thickened Scar -Granulation Amt None Present (0 %) -Granulation Quality N/A -Necrosis Amt None Present (0 %) -Necrotic Tissue Type Adherent Slough -Structure Exposed None/Limited to Skin Breakdown -Texture (Blanche-wound Skin Appearance) Scarring -Moisture (Blanche-wound Skin Appearance Dry/Scaly ) -Color (Blanche-wound Skin Appearance) Erythema -Temperature (Blanche-wound Skin No Abnormality Appearance) (Pt Warm) -Tenderness on Palpation (Blanche-wound No Skin Appearance) -Ulcer Cleansing Rinsed/ Irrigated with Saline -Foul Odor after Cleansing No [Edema Assessment] -Lower Limb Edema Present No WC - Nurse 2 - General Ulcer CM Notes Start: 06/20/17 08:32 Freq: Status: Active Protocol: Activity Type Activity Date Activity User E-Sign Co-Sign Detail Recorded Client Recorded Date Recorded By Document 06/27/17 09:28 [id number] 06/27/17 09:43 06/27/17 09:28 Wound Center Nurse 2 [Procedure/Treatment] #1 R Groin -Time 09:28 -Correct Patient Yes -Correct Side, Site, Position Yes -Correct Procedure Yes -Procedure Performed Yes -Type of Procedure Debridement -Clinical Debridement Subcutaneous -Post Debridement Size (cm) - Length 1.3 -Post Debridement Size (cm) - Width 0.3 -Post Debridement Size (cm) - Depth 0.1 -Total Square Cm 0.39 -Wound/Ulcer Outcome Not Healed -Ulcer Cleansing Rinsed/ Irrigated with Saline -Foul Odor after Cleansing No -Cetacaine Durbin No -Topical Lidocaine (%) 4 -Lidocaine (ml) 5 -Bleeding Controlled with NA -Treatment Response Procedure Tolerated Well [See Physician Procedure note for Specifics] Pain Scale: 0-10 Numeric [Pain] -Is Patient Pain Free? Yes Neurological: Cranial nerves II-XII grossly intact, Neuro grossly intact Psych/Mental Status: Normal Affect, Appropriate, Alert and oriented to time, place, person, mood and affect Debridement Note Post-Debridement Measurements/Treatment WC - Nurse 2 - General Ulcer CM Notes Start: 06/20/17 08:32 Freq: Status: Active Protocol: Activity Type Activity Date Activity User E-Sign Co-Sign Detail Recorded Client Recorded Date Recorded By Document 06/20/17 09:39 [id number] 06/20/17 09:50 JS Document 06/27/17 09:28 [id number] 06/27/17 09:43 06/20/17 06/27/17 09:39 09:28 Wound Center Nurse 2 #1 R Groin -Time 09:42 09:28 -Correct Patient Yes Yes -Correct Side, Site, Position Yes Yes -Correct Procedure Yes Yes -Procedure Performed Yes Yes -Type of Procedure Debridement Debridement -Clinical Debridement Subcutaneous Subcutaneous -Post Debridement Size (cm) - Length 1.7 1.3 -Post Debridement Size (cm) - Width 0.4 0.3 -Post Debridement Size (cm) - Depth 0.1 0.1 -Total Square Cm 0.68 0.39 -Wound/Ulcer Outcome Not Healed Not Healed -Ulcer Cleansing Rinsed/ Rinsed/ Irrigated with Irrigated with Saline Saline -Foul Odor after Cleansing No No -Bioengineered Tissue No -Cetacaine Durbin No No -Topical Lidocaine (%) 4 4 -Lidocaine (ml) 5 5 -Bleeding Controlled with Pressure NA -Treatment Response Procedure Procedure Tolerated Well Tolerated Well Pain Scale: 0-10 Numeric Is Patient Pain Free? Yes Yes Laterality: Right - Groin Type of Debridement: Excisional debridement Anesthesia Used: 4% Lidocaine Solution Depth: Down to and including healthy tissue, in the subcutaneous layer Percentage of wound debrided: 100 Instrument Used: 3mm curette Severity: Fat Layer Exposed Amount of bleeding with debridement: Mild Bleeding Controlled with: Compression and gauze Patient tolerated procedure well Assessment/Plan Active Problems soft tissue radiation injury (Chronic) Soft tissue radionecrosis (Chronic) Amputee, above knee (Chronic) Obesity (BMI 30.0-34.9) (Chronic) Ulcer of right groin (Acute) History of melanoma (Chronic) Assessment: This is a 62-year-old female with a somewhat complicated and complex past medical history, documented above. In the 1970's, she was diagnosed with malignant melanoma of the right calf, with metastasis to lymph nodes in the right groin. She underwent excision of the melanoma with right groin lymphadenectomy. She was subsequently treated with a long series of radiation treatments to the right groin. As result, she has developed soft tissue radiation injury, and has previously been treated at our wound center in the past with a series of approximately 90 hyperbaric oxygen therapy treatments , in 2011. She presents at this time with apparent recurrence of soft tissue radionecrosis in the right groin. Plan: We are to transition to the use of collagen hydrogel, as the base of the ulceration appears somewhat ischemic and with evidence of nonviable necrotic tissue. This nonviable tissue was not easily removed by means of debridement today. The patient's recent laboratory studies have been reviewed, and it is noted that her white blood count was 14.7. There is no obvious sign of infection. However, we have obtained swab cultures of the wound, both aerobic and anaerobic. We will await the results of cultures. Patient is to return in 2 weeks. We anticipate that serial debridements will continue. The patient appears to be a candidate for hyperbaric oxygen therapy for soft tissue radionecrosis, and efforts will be made to preauthorized such treatments. Because the patient has undergone such treatments in the past, and has tolerated them without difficulty, there appeared to be no contraindications to such intervention. The patient has a full understanding of the indications for and the risks of hyperbaric oxygen therapy, and has indicated her desire to proceed. Influenza vaccine was not administered today. Patient is not a smoker. She stands 5 feet 7 inches tall. She weighs 198 pounds. Her BMI is 31 , which places her in a class I category. Weight loss has been recommended. She is to collaborate with her primary care physician in this regard.
--- NOTE | 2017-08-07 22:28 | PCM.HBO.PN ---
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 Progress: Treatment #11 hyperbaric oxygen therapy. Tolerance of hyperbaric oxygen therapy: Hyperbaric oxygen therapy was administered as per the facility's protocol. The patient tolerated hyperbaric oxygen therapy well, without complications or complaints. Upon emergence from the hyperbaric chamber, the patient's vital signs remained stable. The patient was discharged in good condition. 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 The patient's father at age of 79 with a history of cardiomyopathy. 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
== END 2017-07-09 23:59 ==
LOC: WC 09:00
PROVIDERS: Family Provider Family Medicine; PCP Family Medicine; Visit Provider Surgery
DX: L59.8 Other specified disorders of the skin and subcutaneous tissue related to radiation (principal); Y84.2 Radiological procedure and radiotherapy as the cause of abnormal reaction of the patient, or of later complication, without mention of misadventure at the time of the procedure; Z89.611 Acquired absence of right leg above knee; K21.9 Gastro-esophageal reflux disease without esophagitis; E78.5 Hyperlipidemia, unspecified; Z85.42 Personal history of malignant neoplasm of other parts of uterus; Z85.820 Personal history of malignant melanoma of skin; L98.492 Non-pressure chronic ulcer of skin of other sites with fat layer exposed; Z86.14 Personal history of Methicillin resistant Staphylococcus aureus infection; E66.9 Obesity, unspecified; Z68.31 Body mass index [BMI] 31.0-31.9, adult; Z71.3 Dietary counseling and surveillance; Z87.891 Personal history of nicotine dependence
CPT/HCPCS: 11042; 80053; 84134; 85027; 87070; 87075; 87077; 87186; 87205; 99212; G0463

== ENCOUNTER 2017-08-08 10:00 | Outpatient (RCR) | payer OTHER, SELFPAY ==
[2017-07-10 01:33] VITALS: BP 127/72; PULSE 90; RESP 18; TEMP 35.9; BMI 68.3
[2017-07-11 10:09] VITALS: BP 139/87; PULSE 95; RESP 18; TEMP 37; BMI 68.3
--- NOTE | 2017-07-11 10:37 | PCM.WC.HP ---
(1) soft tissue radiation injury Status: Chronic Current Visit: Yes (2) Soft tissue radionecrosis Status: Chronic Current Visit: Yes Code(s): L59.8 - Other specified disorders of the skin and subcutaneous tissue related to radiation; Y84.2 - Radiological procedure and radiotherapy as the cause of abnormal reaction of the patient, or of later complication, without mention of misadventure at the time of the procedure (3) Amputee, above knee Status: Chronic Current Visit: Yes Qualifiers: Laterality: right Code(s): Z89.619 - Acquired absence of unspecified leg above knee (4) Obesity (BMI 30.0-34.9) Status: Chronic Current Visit: No Code(s): E66.9 - Obesity, unspecified (5) Ulcer of right groin Status: Acute Current Visit: Yes Qualifiers: Non-pressure ulcer stage: with fat layer exposed Code(s): L98.499 - Non-pressure chronic ulcer of skin of other sites with unspecified severity (6) GERD (gastroesophageal reflux disease) Status: Chronic Current Visit: No Code(s): K21.9 - Gastro-esophageal reflux disease without esophagitis (7) Hyperlipidemia Status: Chronic Current Visit: No Code(s): E78.5 - Hyperlipidemia, unspecified (8) History of melanoma Status: Chronic Current Visit: No Code(s): Z85.820 - Personal history of malignant melanoma of skin (9) History of uterine cancer Status: Chronic Current Visit: No Code(s): Z85.42 - Personal history of malignant neoplasm of other parts of uterus History of Present Illness Date of Service: 07/11/17 Chief Complaint: 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 The patient underwent excision of her melanoma with lymphadenectomy in the right groin. She also underwent lengthy radiation treatments at the [facility] in [place], [place]. Melanoma recurred, and the patient was subsequently treated with monoclonal antibodies in 1984. 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 Treatment included local ulcer care and hyperbaric oxygen therapy. She underwent a total of nearly 90 treatments of hyperbaric oxygen therapy. It is known that she tolerated the therapies well, and derived significant benefit. She relates no history of claustrophobia, or other complications related to the hyperbaric oxygen therapy treatments. She has no history of barotrauma to lungs, ears, etc. Her medical history has been reviewed, without any evidence of contraindications to hyperbaric oxygen therapy. 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 She is undergone excision of melanoma from the right calf, with lymphadenectomy of the right groin in the 1969's. She subsequently required surgeries of the right thigh related to osteomyelitis, MRSA infection, and radiation injury to the right femoral artery. Ultimately, the patient required right above-knee amputation, performed in 2000. She also has a remote history of open reduction and internal fixation of a right ankle fracture. Allergies/Adverse Reactions: Allergies No Known Allergies Allergy (Verified 06/20/17 09:22) Home Medications: Ambulatory Orders Medication Instructions Recorded Famotidine 20 mg PO 06/20/17 Pravastatin [Pravachol] 20 mg PO DAILY 06/20/17 - Family History Maternal - - The patient's mother is 98 years of age and relatively healthy. The patient's father at age of 79 with a history of cardiomyopathy. Smoking Status: Former smoker Tobacco Use: Non-smoker Review of Systems Constitutional: Denies: Chills, Fever, Weight Change Eyes: Denies: Pain, Vision Change HEENT: Denies: Difficulty Hearing, Difficulty Swallowing, Sinus Congestion Cardiovascular: Denies: Chest Pain, Palpitations Respiratory: Denies: Cough, Shortness of Breath Gastrointestinal: Denies: Diarrhea, Nausea, Vomiting Genitourinary: Denies: Dysuria, Hematuria Endocrine: Denies: Heat/ Cold Intolerance, Polydipsia, Polyuria Hematologic/ Lymphatic: Denies: Easy Bruising, Easy Bleeding - Physical Exam Vital Signs Temp Pulse Resp BP 98.6 F 95 18 139/87 H 07/11/17 10:09 07/11/17 10:09 07/11/17 10:07/11/17 10:09 General: Alert, Oriented x3, Cooperative, No apparent distress, Well developed, Well nourished HEENT: Atraumatic, PERRLA, EOMI, Normocephalic Oral: Moist Mucosa Neck: No JVD Lungs: Normal air movement Abdomen: Non-Distended Extremities: No clubbing, No cyanosis, No edema, No Calf Tenderness, - - Patient is noted to have a right above-knee amputation. The ulceration is noted in the right groin, relatively unchanged in size or appearance. Dimensions are documented elsewhere. There is no sign of infection or cellulitis. The base of the ulceration demonstrates nonviable tissue. There is a moderate amount of biofilm bioburden. Skin: No rashes Wound Measurements and Assessment - Nurse 1 - General Ulcer Measurement Start: 07/11/17 10:09 Freq: Status: Active Protocol: Activity Type Activity Date Activity User E-Sign Co-Sign Detail Recorded Client Recorded Date Recorded By Document 07/11/17 10:09 [id number] 07/11/17 10:18 DL 07/11/17 10:09 Wound Center Nurse 1 [Ulcer Assessment Protocol: WC.WD.LOC] #1 R Groin -Current Size (cm) - Length 1.5 -Current Size (cm) - Width 0.5 -Current Size (cm) - Depth 0.2 -Total Square Cm 0.75 -Photo Taken No -Exudate Amt None Present (0 %) -Wound Margin Thickened -Granulation Amt None Present (0 %) -Necrosis Amt Large (67-100%) -Necrotic Tissue Type Adherent Slough -Structure Exposed N/A -Texture (Blanche-wound Skin Appearance) Scarring -Moisture (Blanche-wound Skin Appearance No Abnormality ) -Color (Blanche-wound Skin Appearance) No Abnormality -Temperature (Blanche-wound Skin No Abnormality Appearance) (Pt Warm) -Ulcer Cleansing Rinsed/ Irrigated with Saline -Foul Odor after Cleansing No -Anesthetic Used 4% Lidocaine Solution - Nurse 2 - General Ulcer CM Notes Start: 07/11/17 10:09 Freq: Status: Active Protocol: Activity Type Activity Date Activity User E-Sign Co-Sign Detail Recorded Client Recorded Date Recorded By Document 07/11/17 10:30 [id number] 07/11/17 10:33 07/11/17 10:30 Wound Center Nurse 2 [Procedure/Treatment] -Time 10:30 -Correct Patient Yes -Correct Side, Site, Position Yes -Correct Procedure Yes -Procedure Performed Yes -Type of Procedure Debridement -Clinical Debridement Subcutaneous -Post Debridement Size (cm) - Length 1.6 -Post Debridement Size (cm) - Width 0.6 -Post Debridement Size (cm) - Depth 0.1 -Total Square Cm 0.96 -Wound/Ulcer Outcome Not Healed -Ulcer Cleansing Rinsed/ Irrigated with Saline -Foul Odor after Cleansing No -Bioengineered Tissue No -Topical Lidocaine (%) 4 -Lidocaine (ml) 5 -Bleeding Controlled with NA -Treatment Response Procedure Tolerated Well [See Physician Procedure note for Specifics] Pain Scale: 0-10 Numeric [Pain] -Is Patient Pain Free? Yes Neurological: Cranial nerves II-XII grossly intact, Neuro grossly intact Psych/Mental Status: Normal Affect, Appropriate, Alert and oriented to time, place, person, mood and affect Debridement Note Post-Debridement Measurements/Treatment WC - Nurse 2 - General Ulcer CM Notes Start: 07/11/17 10:09 Freq: Status: Active Protocol: Activity Type Activity Date Activity User E-Sign Co-Sign Detail Recorded Client Recorded Date Recorded By Document 07/11/17 10:30 [id number] 07/11/17 10:33 07/11/17 10:30 Wound Center Nurse 2 #1 R Groin -Time 10:30 -Correct Patient Yes -Correct Side, Site, Position Yes -Correct Procedure Yes -Procedure Performed Yes -Type of Procedure Debridement -Clinical Debridement Subcutaneous -Post Debridement Size (cm) - Length 1.6 -Post Debridement Size (cm) - Width 0.6 -Post Debridement Size (cm) - Depth 0.1 -Total Square Cm 0.96 -Wound/Ulcer Outcome Not Healed -Ulcer Cleansing Rinsed/ Irrigated with Saline -Foul Odor after Cleansing No -Bioengineered Tissue No -Topical Lidocaine (%) 4 -Lidocaine (ml) 5 -Bleeding Controlled with NA -Treatment Response Procedure Tolerated Well Pain Scale: 0-10 Numeric Is Patient Pain Free? Yes Laterality: Right - Groin Type of Debridement: Excisional debridement Anesthesia Used: 4% Lidocaine Solution Depth: Down to and including healthy tissue, in the subcutaneous layer Percentage of wound debrided: 100 Instrument Used: 5mm curette Severity: Fat Layer Exposed Amount of bleeding with debridement: Mild Bleeding Controlled with: Compression and gauze Patient tolerated procedure well Assessment/Plan Active Problems soft tissue radiation injury (Chronic) Soft tissue radionecrosis (Chronic) Amputee, above knee (Chronic) Ulcer of right groin (Acute) Assessment: This is a 62-year-old female with a somewhat complicated and complex past medical history, documented above. In the 1970's, she was diagnosed with malignant melanoma of the right calf, with metastasis to lymph nodes in the right groin. She underwent excision of the melanoma with right groin lymphadenectomy. She was subsequently treated with a long series of radiation treatments to the right groin. As result, she has developed soft tissue radiation injury, and has previously been treated at our wound center in the past with a series of approximately 90 hyperbaric oxygen therapy treatments, in 2011. She presents at this time with recurrence of soft tissue radionecrosis in the right groin. Plan: We are to continue the use of collagenase Santyl, as the base of the ulceration appears somewhat ischemic and with evidence of nonviable necrotic tissue. This nonviable tissue was not easily removed by means of debridement today. The patient's recent laboratory studies have been reviewed, and it is noted that her white blood count was 14.7. There is no obvious sign of infection. However, we have obtained swab cultures of the wound, both aerobic and anaerobic. Recent culture results were positive for staph aureus. The patient is currently in the midst of a course of doxycycline. The patient appears to be a candidate for hyperbaric oxygen therapy for soft tissue radionecrosis, and efforts will be made to preauthorized such treatments. Because the patient has undergone such treatments in the past, and has tolerated them without difficulty, there appeared to be no contraindications to such intervention. The patient has a full understanding of the indications for and the risks of hyperbaric oxygen therapy, and has indicated her desire to proceed. HBO therapy will be initiated next week. Influenza vaccine was not administered today. Patient is not a smoker. She stands 5 feet 7 inches tall. She weighs 198 pounds. Her BMI is 31, which places her in a class I category. Weight loss has been recommended. She is to collaborate with her primary care physician in this regard.
[2017-07-19 11:50] VITALS: BP 127/95; BP 132/87; PULSE 78; PULSE 95; RESP 16; TEMP 36.3; TEMP 36.7
[2017-07-20 08:46] VITALS: BP 125/80; BP 126/97; PULSE 105; PULSE 85; RESP 16; RESP 18; TEMP 36.2
--- NOTE | 2017-07-20 15:42 | PCM.HBO.PN ---
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 Progress: Today represents her 2nd session. Tolerance of hyperbaric oxygen therapy: Hyperbaric oxygen therapy was administered as per the facility's protocol. The patient tolerated hyperbaric oxygen therapy well, without complications or complaints. Upon emergence from the hyperbaric chamber, the patient's vital signs remained stable. The patient was discharged in good condition. 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 The patient's father at age of 79 with a history of cardiomyopathy. 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 Hyperbaric oxygen therapy will continue as per the patient's medical plan.
[2017-07-25 09:27] VITALS: BP 139/86; BP 139/92; PULSE 80; PULSE 90; RESP 16; RESP 18; TEMP 36; TEMP 36.2
[2017-07-25 11:17] VITALS: BP 139/86; PULSE 80; RESP 16; TEMP 36.2; BMI 68.3
--- NOTE | 2017-07-25 12:02 | PCM.WC.HP ---
(1) soft tissue radiation injury Status: Chronic Current Visit: Yes (2) Soft tissue radionecrosis Status: Chronic Current Visit: Yes Code(s): L59.8 - Other specified disorders of the skin and subcutaneous tissue related to radiation; Y84.2 - Radiological procedure and radiotherapy as the cause of abnormal reaction of the patient, or of later complication, without mention of misadventure at the time of the procedure (3) Amputee, above knee Status: Chronic Current Visit: Yes Qualifiers: Laterality: right Code(s): Z89.619 - Acquired absence of unspecified leg above knee (4) Obesity (BMI 30.0-34.9) Status: Chronic Current Visit: No Code(s): E66.9 - Obesity, unspecified (5) Ulcer of right groin Status: Acute Current Visit: Yes Qualifiers: Non-pressure ulcer stage: with fat layer exposed Code(s): L98.499 - Non-pressure chronic ulcer of skin of other sites with unspecified severity (6) GERD (gastroesophageal reflux disease) Status: Chronic Current Visit: No Code(s): K21.9 - Gastro-esophageal reflux disease without esophagitis (7) Hyperlipidemia Status: Chronic Current Visit: No Code(s): E78.5 - Hyperlipidemia, unspecified (8) History of melanoma Status: Chronic Current Visit: No Code(s): Z85.820 - Personal history of malignant melanoma of skin (9) History of uterine cancer Status: Chronic Current Visit: No Code(s): Z85.42 - Personal history of malignant neoplasm of other parts of uterus History of Present Illness Date of Service: 07/25/17 Chief Complaint: 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 The patient underwent excision of her melanoma with lymphadenectomy in the right groin. She also underwent lengthy radiation treatments at the [facility] in [place], [place]. Melanoma recurred, and the patient was subsequently treated with monoclonal antibodies in 1984. 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 Treatment included local ulcer care and hyperbaric oxygen therapy. She underwent a total of nearly 90 treatments of hyperbaric oxygen therapy. It is known that she tolerated the therapies well, and derived significant benefit. She relates no history of claustrophobia, or other complications related to the hyperbaric oxygen therapy treatments. She has no history of barotrauma to lungs, ears, etc. Her medical history has been reviewed, without any evidence of contraindications to hyperbaric oxygen therapy. Hyperbaric oxygen therapy has been reinitiated, and the patient underwent her third hyperbaric oxygen session today. 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 She is undergone excision of melanoma from the right calf, with lymphadenectomy of the right groin in the 1969's. She subsequently required surgeries of the right thigh related to osteomyelitis, MRSA infection, and radiation injury to the right femoral artery. Ultimately, the patient required right above-knee amputation, performed in 2000. She also has a remote history of open reduction and internal fixation of a right ankle fracture. Allergies/Adverse Reactions: Allergies No Known Allergies Allergy (Verified 06/20/17 09:22) Home Medications: Ambulatory Orders Medication Instructions Recorded Famotidine 20 mg PO 06/20/17 Pravastatin [Pravachol] 20 mg PO DAILY 06/20/17 - Family History Maternal - - The patient's mother is 98 years of age and relatively healthy. The patient's father at age of 79 with a history of cardiomyopathy. Smoking Status: Former smoker Tobacco Use: Non-smoker Review of Systems Constitutional: Denies: Chills, Fever, Weight Change Eyes: Denies: Pain, Vision Change HEENT: Denies: Difficulty Hearing, Difficulty Swallowing, Sinus Congestion Cardiovascular: Denies: Chest Pain, Palpitations Respiratory: Denies: Cough, Shortness of Breath Gastrointestinal: Denies: Diarrhea, Nausea, Vomiting Genitourinary: Denies: Dysuria, Hematuria Endocrine: Denies: Heat/ Cold Intolerance, Polydipsia, Polyuria Hematologic/ Lymphatic: Denies: Easy Bruising, Easy Bleeding - Physical Exam Vital Signs Temp Pulse Resp BP 97.1 F L 80 16 139/86 H 07/25/17 11:17 07/25/17 11:17 07/25/17 11:17 07/25/17 11:17 General: Alert, Oriented x3, Cooperative, No apparent distress, Well developed, Well nourished HEENT: Atraumatic, PERRLA, EOMI, Normocephalic Oral: Moist Mucosa Neck: No JVD Lungs: Normal air movement Abdomen: Non-Distended Extremities: No clubbing, No cyanosis, No edema, - - Patient has a right above-knee amputation. The patient's ulceration in the right groin is somewhat larger than previously noted. Dimensions are documented elsewhere. There is a large amount of bile from the bioburden, with necrotic and nonviable tissue at the base of the ulceration. Swab cultures have been obtained for aerobic and anaerobic bacterial growth. Wound Measurements and Assessment - Nurse 1 - General Ulcer Measurement Start: 07/11/17 10:09 Freq: Status: Active Protocol: Activity Type Activity Date Activity User E-Sign Co-Sign Detail Recorded Client Recorded Date Recorded By Document 07/25/17 11:17 [facility] [id number] 07/25/17 11:23 [facility] 07/25/17 11:17 Wound Center Nurse 1 [Ulcer Assessment Protocol: WC.WD.LOC] #1 R Groin -Combined with other wound No -Current Size (cm) - Length 2.8 -Current Size (cm) - Width 0.6 -Current Size (cm) - Depth 0.2 -Total Square Cm 1.68 -Photo Taken No -Epithelialization None Present -Tunneling No -Undermining/Tunneling No -Exudate Amt Small (1-33%) -Exudate Type Serous -Wound Margin Distinct, Outline Attached -Granulation Amt None Present (0 %) -Slough/Fibrin Yes -Necrosis Amt Large (67-100%) -Necrotic Tissue Type Adherent Slough -Structure Exposed N/A -Texture (Blanche-wound Skin Appearance) Scarring -Moisture (Blanche-wound Skin Appearance Assessed ) -Color (Blanche-wound Skin Appearance) Assessed -Temperature (Blanche-wound Skin No Abnormality Appearance) (Pt Warm) -Tenderness on Palpation (Blanche-wound No Skin Appearance) -Ulcer Cleansing Rinsed/ Irrigated with Saline -Foul Odor after Cleansing No -Anesthetic Used 4% Lidocaine Solution - Nurse 2 - General Ulcer CM Notes Start: 07/11/17 10:09 Freq: Status: Active Protocol: Activity Type Activity Date Activity User E-Sign Co-Sign Detail Recorded Client Recorded Date Recorded By Document 07/25/17 11:49 [id number] 07/25/17 11:52 07/25/17 11:49 Wound Center Nurse 2 [Procedure/Treatment] -Time 11:50 -Correct Patient Yes -Correct Side, Site, Position Yes -Correct Procedure Yes -Procedure Performed Yes -Type of Procedure Debridement -Clinical Debridement Subcutaneous -Post Debridement Size (cm) - Length 2.9 -Post Debridement Size (cm) - Width 0.7 -Post Debridement Size (cm) - Depth 0.2 -Total Square Cm 2.03 -Wound/Ulcer Outcome Not Healed -Ulcer Cleansing Rinsed/ Irrigated with Saline -Foul Odor after Cleansing No -Bioengineered Tissue No -Cetacaine [place] No -Topical Lidocaine (%) 4 -Lidocaine (ml) 5 -Bleeding Controlled with NA -Treatment Response Procedure Tolerated Well [See Physician Procedure note for Specifics] Pain Scale: 0-10 Numeric [Pain] -Is Patient Pain Free? Yes Neurological: Cranial nerves II-XII grossly intact, Neuro grossly intact Psych/Mental Status: Normal Affect, Appropriate, Alert and oriented to time, place, person, mood and affect Debridement Note Post-Debridement Measurements/Treatment - Nurse 2 - General Ulcer CM Notes Start: 07/11/17 10:09 Freq: Status: Active Protocol: Activity Type Activity Date Activity User E-Sign Co-Sign Detail Recorded Client Recorded Date Recorded By Document 07/11/17 10:30 [email or web address] 07/11/17 10:33 JS Document 07/25/17 11:49 [id number] 07/25/17 11:52 07/11/17 07/25/17 10:30 11:49 Wound Center Nurse 2 #1 R Groin -Time 10:30 11:50 -Correct Patient Yes Yes -Correct Side, Site, Position Yes Yes -Correct Procedure Yes Yes -Procedure Performed Yes Yes -Type of Procedure Debridement Debridement -Clinical Debridement Subcutaneous Subcutaneous -Post Debridement Size (cm) - Length 1.6 2.9 -Post Debridement Size (cm) - Width 0.6 0.7 -Post Debridement Size (cm) - Depth 0.1 0.2 -Total Square Cm 0.96 2.03 -Wound/Ulcer Outcome Not Healed Not Healed -Ulcer Cleansing Rinsed/ Rinsed/ Irrigated with Irrigated with Saline Saline -Foul Odor after Cleansing No No -Bioengineered Tissue No No -Cetacaine [place] No -Topical Lidocaine (%) 4 4 -Lidocaine (ml) 5 5 -Bleeding Controlled with NA NA -Treatment Response Procedure Procedure Tolerated Well Tolerated Well Pain Scale: 0-10 Numeric Is Patient Pain Free? 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 In the 1970's, she was diagnosed with malignant melanoma of the right calf, with metastasis to lymph nodes in the right groin. She underwent excision of the melanoma with right groin lymphadenectomy. She was subsequently treated with a long series of radiation treatments to the right groin. As result, she has developed soft tissue radiation injury, and has previously been treated at our wound center in the past with a series of approximately 90 hyperbaric oxygen therapy treatments, in 2012. She presented at this time with recurrence of soft tissue radionecrosis in the right groin. Hyperbaric oxygen therapy treatments have been initiated, and the patient underwent her third such treatment earlier today. Plan: We are to continue the use of collagenase Santyl, as the base of the ulceration menstruates a moderate amount of biofilm and bioburden, with evidence of nonviable and necrotic tissue. This nonviable tissue was not easily removed by means of debridement today. The patient's recent laboratory studies have been reviewed, and it is noted that her white blood count was 14.7. There is no obvious sign of infection. However, we have obtained swab cultures of the wound, both aerobic and anaerobic. Results will be awaited. Hyperbaric oxygen therapy is indicated due to the patient's diagnosis of soft tissue radionecrosis. Because the patient has undergone such treatments in the past, and has tolerated them without difficulty, there appeared to be no contraindications to such intervention, reasonable expectation that hyperbaric oxygen therapy would produce favorable results. Influenza vaccine was not administered today. Patient is not a smoker. She stands 5 feet 7 inches tall. She weighs 198 pounds. Her BMI is 31, which places her in a class I category. Weight loss has been recommended. She is to collaborate with her primary care physician in this regard.
--- NOTE | 2017-07-25 12:10 | HP.PCM_ITS ---
(1) soft tissue radiation injury Status: Chronic Current Visit: Yes (2) Soft tissue radionecrosis Status: Chronic Current Visit: Yes Code(s): L59.8 - Other specified disorders of the skin and subcutaneous tissue related to radiation; Y84.2 - Radiological procedure and radiotherapy as the cause of abnormal reaction of the patient, or of later complication, without mention of misadventure at the time of the procedure (3) Amputee, above knee Status: Chronic Current Visit: Yes Qualifiers: Laterality: right Code(s): Z89.619 - Acquired absence of unspecified leg above knee (4) Obesity (BMI 30.0-34.9) Status: Chronic Current Visit: No Code(s): E66.9 - Obesity, unspecified (5) Ulcer of right groin Status: Acute Current Visit: Yes Qualifiers: Non-pressure ulcer stage: with fat layer exposed Code(s): L98.499 - Non-pressure chronic ulcer of skin of other sites with unspecified severity (6) GERD (gastroesophageal reflux disease) Status: Chronic Current Visit: No Code(s): K21.9 - Gastro-esophageal reflux disease without esophagitis (7) Hyperlipidemia Status: Chronic Current Visit: No Code(s): E78.5 - Hyperlipidemia, unspecified (8) History of melanoma Status: Chronic Current Visit: No Code(s): Z85.820 - Personal history of malignant melanoma of skin (9) History of uterine cancer Status: Chronic Current Visit: No Code(s): Z85.42 - Personal history of malignant neoplasm of other parts of uterus History of Present Illness Date of Service: 07/25/17 Chief Complaint: 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 The patient underwent excision of her melanoma with lymphadenectomy in the right groin. She also underwent lengthy radiation treatments at the [facility] in [place], [place]. Melanoma recurred, and the patient was subsequently treated with monoclonal antibodies in 1984. 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 Treatment included local ulcer care and hyperbaric oxygen therapy. She underwent a total of nearly 90 treatments of hyperbaric oxygen therapy. It is known that she tolerated the therapies well, and derived significant benefit. She relates no history of claustrophobia, or other complications related to the hyperbaric oxygen therapy treatments. She has no history of barotrauma to lungs , ears, etc. Her medical history has been reviewed, without any evidence of contraindications to hyperbaric oxygen therapy. Hyperbaric oxygen therapy has been reinitiated, and the patient underwent her third hyperbaric oxygen session today. 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 She is undergone excision of melanoma from the right calf, with lymphadenectomy of the right groin in the 1969's. She subsequently required surgeries of the right thigh related to osteomyelitis, MRSA infection, and radiation injury to the right femoral artery. Ultimately, the patient required right above-knee amputation, performed in 2000. She also has a remote history of open reduction and internal fixation of a right ankle fracture. Allergies/Adverse Reactions: Allergies No Known Allergies Allergy (Verified 06/20/17 09:22) Home Medications: Ambulatory Orders Medication Instructions Recorded Famotidine 20 mg PO 06/20/17 Pravastatin [Pravachol] 20 mg PO DAILY 06/20/17 - Family History Maternal - - The patient's mother is 98 years of age and relatively healthy. The patient 's father at age of 79 with a history of cardiomyopathy. Smoking Status: Former smoker Tobacco Use: Non-smoker Review of Systems Constitutional: Denies: Chills, Fever, Weight Change Eyes: Denies: Pain, Vision Change HEENT: Denies: Difficulty Hearing, Difficulty Swallowing, Sinus Congestion Cardiovascular: Denies: Chest Pain, Palpitations Respiratory: Denies: Cough, Shortness of Breath Gastrointestinal: Denies: Diarrhea, Nausea, Vomiting Genitourinary: Denies: Dysuria, Hematuria Endocrine: Denies: Heat/ Cold Intolerance, Polydipsia, Polyuria Hematologic/ Lymphatic: Denies: Easy Bruising, Easy Bleeding - Physical Exam Vital Signs Temp Pulse Resp BP 97.1 F L 80 16 139/86 H 07/25/17 11:17 07/25/17 11:17 07/25/17 11:17 07/25/17 11:17 General: Alert, Oriented x3, Cooperative, No apparent distress, Well developed, Well nourished HEENT: Atraumatic, PERRLA, EOMI, Normocephalic Oral: Moist Mucosa Neck: No JVD Lungs: Normal air movement Abdomen: Non-Distended Extremities: No clubbing, No cyanosis, No edema, - - Patient has a right above- knee amputation. The patient's ulceration in the right groin is somewhat larger than previously noted. Dimensions are documented elsewhere. There is a large amount of bile from the bioburden, with necrotic and nonviable tissue at the base of the ulceration. Swab cultures have been obtained for aerobic and anaerobic bacterial growth. Wound Measurements and Assessment - Nurse 1 - General Ulcer Measurement Start: 07/11/17 10:09 Freq: Status: Active Protocol: Activity Type Activity Date Activity User E-Sign Co-Sign Detail Recorded Client Recorded Date Recorded By Document 07/25/17 11:17 [facility] [id number] 07/25/17 11:23 [facility] 07/25/17 11:17 Wound Center Nurse 1 [Ulcer Assessment Protocol: WC.WD.LOC] #1 R Groin -Combined with other wound No -Current Size (cm) - Length 2.8 -Current Size (cm) - Width 0.6 -Current Size (cm) - Depth 0.2 -Total Square Cm 1.68 -Photo Taken No -Epithelialization None Present -Tunneling No -Undermining/Tunneling No -Exudate Amt Small (1-33%) -Exudate Type Serous -Wound Margin Distinct, Outline Attached -Granulation Amt None Present (0 %) -Slough/Fibrin Yes -Necrosis Amt Large (67-100%) -Necrotic Tissue Type Adherent Slough -Structure Exposed N/A -Texture (Blanche-wound Skin Appearance) Scarring -Moisture (Blanche-wound Skin Appearance Assessed ) -Color (Blanche-wound Skin Appearance) Assessed -Temperature (Blanche-wound Skin No Abnormality Appearance) (Pt Warm) -Tenderness on Palpation (Blanche-wound No Skin Appearance) -Ulcer Cleansing Rinsed/ Irrigated with Saline -Foul Odor after Cleansing No -Anesthetic Used 4% Lidocaine Solution - Nurse 2 - General Ulcer CM Notes Start: 07/11/17 10:09 Freq: Status: Active Protocol: Activity Type Activity Date Activity User E-Sign Co-Sign Detail Recorded Client Recorded Date Recorded By Document 07/25/17 11:49 [id number] 07/25/17 11:52 07/25/17 11:49 Wound Center Nurse 2 [Procedure/Treatment] -Time 11:50 -Correct Patient Yes -Correct Side, Site, Position Yes -Correct Procedure Yes -Procedure Performed Yes -Type of Procedure Debridement -Clinical Debridement Subcutaneous -Post Debridement Size (cm) - Length 2.9 -Post Debridement Size (cm) - Width 0.7 -Post Debridement Size (cm) - Depth 0.2 -Total Square Cm 2.03 -Wound/Ulcer Outcome Not Healed -Ulcer Cleansing Rinsed/ Irrigated with Saline -Foul Odor after Cleansing No -Bioengineered Tissue No -Cetacaine [place] No -Topical Lidocaine (%) 4 -Lidocaine (ml) 5 -Bleeding Controlled with NA -Treatment Response Procedure Tolerated Well [See Physician Procedure note for Specifics] Pain Scale: 0-10 Numeric [Pain] -Is Patient Pain Free? Yes Neurological: Cranial nerves II-XII grossly intact, Neuro grossly intact Psych/Mental Status: Normal Affect, Appropriate, Alert and oriented to time, place, person, mood and affect Debridement Note Post-Debridement Measurements/Treatment - Nurse 2 - General Ulcer CM Notes Start: 07/11/17 10:09 Freq: Status: Active Protocol: Activity Type Activity Date Activity User E-Sign Co-Sign Detail Recorded Client Recorded Date Recorded By Document 07/11/17 10:30 [id number] 07/11/17 10:33 JS Document 07/25/17 11:49 [id number] 07/25/17 11:52 07/11/17 07/25/17 10:30 11:49 Wound Center Nurse 2 #1 R Groin -Time 10:30 11:50 -Correct Patient Yes Yes -Correct Side, Site, Position Yes Yes -Correct Procedure Yes Yes -Procedure Performed Yes Yes -Type of Procedure Debridement Debridement -Clinical Debridement Subcutaneous Subcutaneous -Post Debridement Size (cm) - Length 1.6 2.9 -Post Debridement Size (cm) - Width 0.6 0.7 -Post Debridement Size (cm) - Depth 0.1 0.2 -Total Square Cm 0.96 2.03 -Wound/Ulcer Outcome Not Healed Not Healed -Ulcer Cleansing Rinsed/ Rinsed/ Irrigated with Irrigated with Saline Saline -Foul Odor after Cleansing No No -Bioengineered Tissue No No -Cetacaine [place] No -Topical Lidocaine (%) 4 4 -Lidocaine (ml) 5 5 -Bleeding Controlled with NA NA -Treatment Response Procedure Procedure Tolerated Well Tolerated Well Pain Scale: 0-10 Numeric Is Patient Pain Free? 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 In the 1970's, she was diagnosed with malignant melanoma of the right calf, with metastasis to lymph nodes in the right groin. She underwent excision of the melanoma with right groin lymphadenectomy. She was subsequently treated with a long series of radiation treatments to the right groin. As result, she has developed soft tissue radiation injury, and has previously been treated at our wound center in the past with a series of approximately 90 hyperbaric oxygen therapy treatments , in 2012. She presented at this time with recurrence of soft tissue radionecrosis in the right groin. Hyperbaric oxygen therapy treatments have been initiated, and the patient underwent her third such treatment earlier today. Plan: We are to continue the use of collagenase Santyl, as the base of the ulceration menstruates a moderate amount of biofilm and bioburden, with evidence of nonviable and necrotic tissue. This nonviable tissue was not easily removed by means of debridement today. The patient's recent laboratory studies have been reviewed, and it is noted that her white blood count was 14.7. There is no obvious sign of infection. However, we have obtained swab cultures of the wound, both aerobic and anaerobic. Results will be awaited. Hyperbaric oxygen therapy is indicated due to the patient's diagnosis of soft tissue radionecrosis. Because the patient has undergone such treatments in the past, and has tolerated them without difficulty, there appeared to be no contraindications to such intervention, reasonable expectation that hyperbaric oxygen therapy would produce favorable results. Influenza vaccine was not administered today. Patient is not a smoker. She stands 5 feet 7 inches tall. She weighs 198 pounds. Her BMI is 31, which places her in a class I category. Weight loss has been recommended. She is to collaborate with her primary care physician in this regard.
--- NOTE | 2017-07-25 12:14 | PCM.HBO.PN ---
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 Progress: Today represents her 3rd session of hyperbaric oxygen therapy. Tolerance of hyperbaric oxygen therapy: Hyperbaric oxygen therapy was administered as per the facility's protocol. The patient tolerated hyperbaric oxygen therapy well, without complications or complaints. Upon emergence from the hyperbaric chamber, the patient's vital signs remained stable. The patient was discharged in good condition. 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 The patient's father at age of 79 with a history of cardiomyopathy. Smoking Status: Former smoker Tobacco Use: Non-smoker Physical Exam Vital Signs Temp Pulse Resp BP 97.1 F L 80 16 139/86 H 07/25/17 11:17 07/25/17 11:17 07/25/17 11:17 07/25/17 11:17 General: Alert, Oriented x3, Cooperative, No apparent distress, Well developed, Well nourished HEENT: Atraumatic, PERRLA, EOMI, Normocephalic Lungs: Normal air movement Psych/Mental Status: Normal Affect, Appropriate, Alert and oriented to time, place, person, mood and affect Assessment/Plan Active Problems soft tissue radiation injury (Chronic) Soft tissue radionecrosis (Chronic) Amputee, above knee (Chronic) Ulcer of right groin (Acute) Patient appears to be tolerating hyperbaric oxygen therapy well, which will be continued as per the patient's medical plan.
[2017-07-26 08:37] VITALS: BP 137/99; PULSE 102; RESP 16; TEMP 35.8; TEMP 36.2
--- NOTE | 2017-07-26 17:29 | PCM.HBO.PN ---
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 Progress: She has progressed well and tolerated HBO so far. Tolerance of hyperbaric oxygen therapy: Hyperbaric oxygen therapy was administered as per the facility's protocol. The patient tolerated hyperbaric oxygen therapy well, without complications or complaints. Upon emergence from the hyperbaric chamber, the patient's vital signs remained stable. The patient was discharged in good condition. 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 The patient's father at age of 79 with a history of cardiomyopathy. Smoking Status: Former smoker Tobacco Use: Non-smoker Physical Exam Vital Signs Temp Pulse Resp BP 96.4 F L 102 H 16 137/99 H 07/26/17 08:37 07/26/17 08:37 07/26/17 08:37 07/26/17 08:37 General: Alert, Oriented x3, Cooperative, No apparent distress HEENT: Atraumatic, Normocephalic, TM's Clear Lungs: Normal air movement Cardiovascular: Tachycardic Psych/Mental Status: Normal Affect Assessment/Plan Active Problems soft tissue radiation injury (Chronic) Soft tissue radionecrosis (Chronic) Amputee, above knee (Chronic) Ulcer of right groin (Acute) Patient appears to be tolerating hyperbaric oxygen therapy well, which will be continued as per the patient's medical plan.
[2017-07-27 08:20] VITALS: BP 128/91; BP 129/90; PULSE 82; PULSE 91; RESP 16; RESP 18; TEMP 35.5; TEMP 36.2
--- NOTE | 2017-07-27 08:56 | PCM.HBO.PN ---
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 Progress: She has progressed well and tolerated HBO so far. Tolerance of hyperbaric oxygen therapy: Hyperbaric oxygen therapy was administered as per the facility's protocol. The patient tolerated hyperbaric oxygen therapy well, without complications or complaints. Upon emergence from the hyperbaric chamber, the patient's vital signs remained stable. The patient was discharged in good condition. 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 The patient's father at age of 79 with a history of cardiomyopathy. Smoking Status: Former smoker Tobacco Use: Non-smoker Physical Exam Vital Signs Temp Pulse Resp BP 96 F L 91 18 129/90 H 07/27/17 08:20 07/27/17 08:20 07/27/17 08:20 07/27/17 08:20 General: Alert, Oriented x3, Cooperative, No apparent distress HEENT: Atraumatic, Normocephalic, TM's Clear Lungs: Normal air movement Cardiovascular: Regular rate Psych/Mental Status: Normal Affect Assessment/Plan Active Problems soft tissue radiation injury (Chronic) Soft tissue radionecrosis (Chronic) Amputee, above knee (Chronic) Ulcer of right groin (Acute) Patient appears to be tolerating hyperbaric oxygen therapy well, which will be continued as per the patient's medical plan.
[2017-07-28 08:49] VITALS: BP 122/94; BP 130/81; PULSE 78; PULSE 91; RESP 16; TEMP 36.1; TEMP 36.2
--- NOTE | 2017-07-28 10:22 | PCM.HBO.PN ---
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 Progress: She has progressed well and tolerated HBO so far. Tolerance of hyperbaric oxygen therapy: #6 Hyperbaric oxygen therapy was administered as per the facility's protocol. The patient tolerated hyperbaric oxygen therapy well, without complications or complaints. Upon emergence from the hyperbaric chamber, the patient's vital signs remained stable. The patient was discharged in good condition. 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 The patient's father at age of 79 with a history of cardiomyopathy. Smoking Status: Former smoker Tobacco Use: Non-smoker Physical Exam Vital Signs Temp Pulse Resp BP 97.2 F L 91 16 130/81 H 07/28/17 08:49 07/28/17 08:49 07/28/17 08:49 07/28/17 08:49 Assessment/Plan Active Problems soft tissue radiation injury (Chronic) Soft tissue radionecrosis (Chronic) Amputee, above knee (Chronic) Ulcer of right groin (Acute) Patient appears to be tolerating hyperbaric oxygen therapy well, which will be continued as per the patient's medical plan.
[2017-07-31 11:05] VITALS: BP 163/81; BP 163/98; PULSE 72; PULSE 89; RESP 16; RESP 18; TEMP 36.3; TEMP 36.4
--- NOTE | 2017-07-31 15:29 | PCM.HBO.PN ---
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 Progress: Treatment #7 hyperbaric oxygen therapy. Tolerance of hyperbaric oxygen therapy: Hyperbaric oxygen therapy was administered as per the facility's protocol. The patient tolerated hyperbaric oxygen therapy well, without complications or complaints. Upon emergence from the hyperbaric chamber, the patient's vital signs remained stable. The patient was discharged in good condition. 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 The patient's father at age of 79 with a history of cardiomyopathy. Smoking Status: Former smoker Tobacco Use: Non-smoker Physical Exam Vital Signs Temp Pulse Resp BP 97.5 F L 89 18 163/98 H 07/31/17 11:05 07/31/17 11:05 07/31/17 11:05 07/31/17 11:05
[2017-08-01 09:22] VITALS: BP 159/95; PULSE 107; RESP 16; TEMP 36.3; BMI 68.3
--- NOTE | 2017-08-01 09:55 | PCM.WC.HP ---
(1) soft tissue radiation injury Status: Chronic Current Visit: Yes (2) Soft tissue radionecrosis Status: Chronic Current Visit: Yes Code(s): L59.8 - Other specified disorders of the skin and subcutaneous tissue related to radiation; Y84.2 - Radiological procedure and radiotherapy as the cause of abnormal reaction of the patient, or of later complication, without mention of misadventure at the time of the procedure (3) Amputee, above knee Status: Chronic Current Visit: Yes Qualifiers: Laterality: right Code(s): Z89.619 - Acquired absence of unspecified leg above knee (4) Obesity (BMI 30.0-34.9) Status: Chronic Current Visit: No Code(s): E66.9 - Obesity, unspecified (5) Ulcer of right groin Status: Acute Current Visit: Yes Qualifiers: Non-pressure ulcer stage: with fat layer exposed Code(s): L98.499 - Non-pressure chronic ulcer of skin of other sites with unspecified severity (6) GERD (gastroesophageal reflux disease) Status: Chronic Current Visit: No Code(s): K21.9 - Gastro-esophageal reflux disease without esophagitis (7) Hyperlipidemia Status: Chronic Current Visit: No Code(s): E78.5 - Hyperlipidemia, unspecified (8) History of melanoma Status: Chronic Current Visit: No Code(s): Z85.820 - Personal history of malignant melanoma of skin (9) History of uterine cancer Status: Chronic Current Visit: No Code(s): Z85.42 - Personal history of malignant neoplasm of other parts of uterus History of Present Illness Date of Service: 08/01/17 Chief Complaint: 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 The patient underwent excision of her melanoma with lymphadenectomy in the right groin. She also underwent lengthy radiation treatments at the [facility] in [place], [place]. Melanoma recurred, and the patient was subsequently treated with monoclonal antibodies in 1984. 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 Treatment included local ulcer care and hyperbaric oxygen therapy. She underwent a total of nearly 90 treatments of hyperbaric oxygen therapy. It is known that she tolerated the therapies well, and derived significant benefit. She relates no history of claustrophobia, or other complications related to the hyperbaric oxygen therapy treatments. She has no history of barotrauma to lungs, ears, etc. Her medical history has been reviewed, without any evidence of contraindications to hyperbaric oxygen therapy. Hyperbaric oxygen therapy has been reinitiated, and the patient is currently undergoing hyperbaric oxygen therapy in our facility on a daily basis. 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 She is undergone excision of melanoma from the right calf, with lymphadenectomy of the right groin in the 1969's. She subsequently required surgeries of the right thigh related to osteomyelitis, MRSA infection, and radiation injury to the right femoral artery. Ultimately, the patient required right above-knee amputation, performed in 2000. She also has a remote history of open reduction and internal fixation of a right ankle fracture. Allergies/Adverse Reactions: Allergies No Known Allergies Allergy (Verified 06/20/17 09:22) Home Medications: Ambulatory Orders Medication Instructions Recorded Famotidine 20 mg PO 06/20/17 Pravastatin [Pravachol] 20 mg PO DAILY 06/20/17 - Family History Maternal - - The patient's mother is 98 years of age and relatively healthy. The patient's father at age of 79 with a history of cardiomyopathy. Smoking Status: Former smoker Tobacco Use: Non-smoker Review of Systems Constitutional: Denies: Chills, Fever, Weight Change Eyes: Denies: Pain, Vision Change HEENT: Denies: Difficulty Hearing, Difficulty Swallowing, Sinus Congestion Cardiovascular: Denies: Chest Pain, Palpitations Respiratory: Denies: Cough, Shortness of Breath Gastrointestinal: Denies: Diarrhea, Nausea, Vomiting Genitourinary: Denies: Dysuria, Hematuria Endocrine: Denies: Heat/ Cold Intolerance, Polydipsia, Polyuria Hematologic/ Lymphatic: Denies: Easy Bruising, Easy Bleeding - Physical Exam Vital Signs Temp Pulse Resp BP 97.3 F L 107 H 16 159/95 H 08/01/17 09:22 08/01/17 09:22 08/01/17 09:22 08/01/17 09:22 General: Alert, Oriented x3, Cooperative, No apparent distress, Well developed, Well nourished HEENT: Atraumatic, PERRLA, EOMI, Normocephalic Oral: Moist Mucosa Neck: No JVD Lungs: Normal air movement Abdomen: Non-Distended Extremities: No clubbing, No cyanosis, No edema, No Calf Tenderness, - - The ulceration in the right groin is little changed in size. Dimensions are documented elsewhere. There is a large amount of biofilm, bioburden, and nonviable tissue present within the ulceration. Skin: No rashes Wound Measurements and Assessment - Nurse 1 - General Ulcer Measurement Start: 07/11/17 10:09 Freq: Status: Active Protocol: Activity Type Activity Date Activity User E-Sign Co-Sign Detail Recorded Client Recorded Date Recorded By Document 08/01/17 09:22 [facility] [id number] 08/01/17 09:27 [facility] 08/01/17 09:22 Wound Center Nurse 1 [Ulcer Assessment Protocol: .WD.LOC] #5 R Groin -Combined with other wound No -Current Size (cm) - Length 3.0 -Current Size (cm) - Width 0.7 -Current Size (cm) - Depth 0.2 -Total Square Cm 2.10 -Date of Last Picture (Recall this 08/01/17 field) -Photo Taken Yes -Epithelialization None Present -Tunneling No -Undermining/Tunneling No -Exudate Amt Small (1-33%) -Exudate Type Serous -Wound Margin Distinct, Outline Attached -Granulation Amt None Present (0 %) -Slough/Fibrin Yes -Necrosis Amt Large (67-100%) -Necrotic Tissue Type Adherent Slough -Structure Exposed N/A -Texture (Blanche-wound Skin Appearance) Scarring -Moisture (Blanche-wound Skin Appearance Assessed ) -Color (Blanche-wound Skin Appearance) Erythema -Temperature (Blanche-wound Skin No Abnormality Appearance) (Pt Warm) -Tenderness on Palpation (Blanche-wound No Skin Appearance) -Ulcer Cleansing Rinsed/ Irrigated with Saline -Foul Odor after Cleansing No -Anesthetic Used 4% Lidocaine Solution - Nurse 2 - General Ulcer CM Notes Start: 07/11/17 10:09 Freq: Status: Active Protocol: Activity Type Activity Date Activity User E-Sign Co-Sign Detail Recorded Client Recorded Date Recorded By Document 08/01/17 09:40 [id number] 08/01/17 09:45 08/01/17 09:40 Wound Center Nurse 2 [Procedure/Treatment] -Time 09:40 -Correct Patient Yes -Correct Side, Site, Position Yes -Correct Procedure Yes -Procedure Performed Yes -Type of Procedure Debridement -Clinical Debridement Subcutaneous -Post Debridement Size (cm) - Length 3.1 -Post Debridement Size (cm) - Width 0.8 -Post Debridement Size (cm) - Depth 0.2 -Total Square Cm 2.48 -Wound/Ulcer Outcome Not Healed -Ulcer Cleansing Rinsed/ Irrigated with Saline -Foul Odor after Cleansing No -Bioengineered Tissue No -Cetacaine [place] No -Topical Lidocaine (%) 4 -Lidocaine (ml) 5 -Bleeding Controlled with Pressure -Treatment Response Procedure Tolerated Well [See Physician Procedure note for Specifics] Pain Scale: 0-10 Numeric [Pain] -Is Patient Pain Free? Yes Neurological: Cranial nerves II-XII grossly intact, Neuro grossly intact Psych/Mental Status: Normal Affect, Appropriate, Alert and oriented to time, place, person, mood and affect Debridement Note Post-Debridement Measurements/Treatment - Nurse 2 - General Ulcer CM Notes Start: 07/11/17 10:09 Freq: Status: Active Protocol: Activity Type Activity Date Activity User E-Sign Co-Sign Detail Recorded Client Recorded Date Recorded By Document 07/11/17 10:30 [id number] 07/11/17 10:33 JS Document 07/25/17 11:49 JS [id number] 07/25/17 11:52 JS Document 08/01/17 09:40 [id number] 08/01/17 09:45 07/11/17 07/25/17 08/01/17 10:30 11:49 09:40 Wound Center Nurse 2 #5 R Groin -Time 10:30 11:50 09:40 -Correct Patient Yes Yes Yes -Correct Side, Site, Position Yes Yes Yes -Correct Procedure Yes Yes Yes -Procedure Performed Yes Yes Yes -Type of Procedure Debridement Debridement Debridement -Clinical Debridement Subcutaneous Subcutaneous Subcutaneous -Post Debridement Size (cm) - Length 1.6 2.9 3.1 -Post Debridement Size (cm) - Width 0.6 0.7 0.8 -Post Debridement Size (cm) - Depth 0.1 0.2 0.2 -Total Square Cm 0.96 2.03 2.48 -Wound/Ulcer Outcome Not Healed Not Healed Not Healed -Ulcer Cleansing Rinsed/ Rinsed/ Rinsed/ Irrigated with Irrigated with Irrigated with Saline Saline Saline -Foul Odor after Cleansing No No No -Bioengineered Tissue No No No -Cetacaine [place] No No -Topical Lidocaine (%) 4 4 4 -Lidocaine (ml) 5 5 5 -Bleeding Controlled with NA NA Pressure -Treatment Response Procedure Procedure Procedure Tolerated Well Tolerated Well Tolerated Well Pain Scale: 0-10 Numeric Is Patient Pain Free? 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 In the 1970's, she was diagnosed with malignant melanoma of the right calf, with metastasis to lymph nodes in the right groin. She underwent excision of the melanoma with right groin lymphadenectomy. She was subsequently treated with a long series of radiation treatments to the right groin. As result, she has developed soft tissue radiation injury, and has previously been treated at our wound center in the past with a series of approximately 90 hyperbaric oxygen therapy treatments, in 2011. She presented at this time with recurrence of soft tissue radionecrosis in the right groin. Hyperbaric oxygen therapy treatments have been initiated, and the patient is undergoing hyperbaric oxygen therapy daily. Plan: We are to transition to the use of Aquacel silver applied topically every other day. We will consider the use of PuraPly, for which we will seek preauthorization. The patient's right groin ulceration is located in an intertriginous zone, subjected to body heat and perspiration. Patient has been urged to keep the area clean and dry. The patient's recent laboratory studies have been reviewed, and it is noted that her white blood count was 14.7. Her recent culture results were positive for Staphylococcus aureus. She is to be started on doxycycline 100 mg p.o. twice daily for 10 days. A prescription has been provided. Hyperbaric oxygen therapy is indicated due to the patient's diagnosis of soft tissue radionecrosis, and is to continue. Patient will return in 1 week for reevaluation. Influenza vaccine was not administered today. Patient is not a smoker. She stands 5 feet 7 inches tall. She weighs 198 pounds. Her BMI is 31, which places her in a class I category. Weight loss has been recommended. She is to collaborate with her primary care physician in this regard.
--- NOTE | 2017-08-01 10:04 | HP.PCM_ITS ---
(1) soft tissue radiation injury Status: Chronic Current Visit: Yes (2) Soft tissue radionecrosis Status: Chronic Current Visit: Yes Code(s): L59.8 - Other specified disorders of the skin and subcutaneous tissue related to radiation; Y84.2 - Radiological procedure and radiotherapy as the cause of abnormal reaction of the patient, or of later complication, without mention of misadventure at the time of the procedure (3) Amputee, above knee Status: Chronic Current Visit: Yes Qualifiers: Laterality: right Code(s): Z89.619 - Acquired absence of unspecified leg above knee (4) Obesity (BMI 30.0-34.9) Status: Chronic Current Visit: No Code(s): E66.9 - Obesity, unspecified (5) Ulcer of right groin Status: Acute Current Visit: Yes Qualifiers: Non-pressure ulcer stage: with fat layer exposed Code(s): L98.499 - Non-pressure chronic ulcer of skin of other sites with unspecified severity (6) GERD (gastroesophageal reflux disease) Status: Chronic Current Visit: No Code(s): K21.9 - Gastro-esophageal reflux disease without esophagitis (7) Hyperlipidemia Status: Chronic Current Visit: No Code(s): E78.5 - Hyperlipidemia, unspecified (8) History of melanoma Status: Chronic Current Visit: No Code(s): Z85.820 - Personal history of malignant melanoma of skin (9) History of uterine cancer Status: Chronic Current Visit: No Code(s): Z85.42 - Personal history of malignant neoplasm of other parts of uterus History of Present Illness Date of Service: 08/01/17 Chief Complaint: 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 The patient underwent excision of her melanoma with lymphadenectomy in the right groin. She also underwent lengthy radiation treatments at the [facility] in [place], [place]. Melanoma recurred, and the patient was subsequently treated with monoclonal antibodies in 1984. 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 Treatment included local ulcer care and hyperbaric oxygen therapy. She underwent a total of nearly 90 treatments of hyperbaric oxygen therapy. It is known that she tolerated the therapies well, and derived significant benefit. She relates no history of claustrophobia, or other complications related to the hyperbaric oxygen therapy treatments. She has no history of barotrauma to lungs , ears, etc. Her medical history has been reviewed, without any evidence of contraindications to hyperbaric oxygen therapy. Hyperbaric oxygen therapy has been reinitiated, and the patient is currently undergoing hyperbaric oxygen therapy in our facility on a daily basis. 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 She is undergone excision of melanoma from the right calf, with lymphadenectomy of the right groin in the 1969's. She subsequently required surgeries of the right thigh related to osteomyelitis, MRSA infection, and radiation injury to the right femoral artery. Ultimately, the patient required right above-knee amputation, performed in 2000. She also has a remote history of open reduction and internal fixation of a right ankle fracture. Allergies/Adverse Reactions: Allergies No Known Allergies Allergy (Verified 06/20/17 09:22) Home Medications: Ambulatory Orders Medication Instructions Recorded Famotidine 20 mg PO 06/20/17 Pravastatin [Pravachol] 20 mg PO DAILY 06/20/17 - Family History Maternal - - The patient's mother is 98 years of age and relatively healthy. The patient 's father at age of 79 with a history of cardiomyopathy. Smoking Status: Former smoker Tobacco Use: Non-smoker Review of Systems Constitutional: Denies: Chills, Fever, Weight Change Eyes: Denies: Pain, Vision Change HEENT: Denies: Difficulty Hearing, Difficulty Swallowing, Sinus Congestion Cardiovascular: Denies: Chest Pain, Palpitations Respiratory: Denies: Cough, Shortness of Breath Gastrointestinal: Denies: Diarrhea, Nausea, Vomiting Genitourinary: Denies: Dysuria, Hematuria Endocrine: Denies: Heat/ Cold Intolerance, Polydipsia, Polyuria Hematologic/ Lymphatic: Denies: Easy Bruising, Easy Bleeding - Physical Exam Vital Signs Temp Pulse Resp BP 97.3 F L 107 H 16 159/95 H 08/01/17 09:22 08/01/17 09:22 08/01/17 09:22 08/01/17 09:22 General: Alert, Oriented x3, Cooperative, No apparent distress, Well developed, Well nourished HEENT: Atraumatic, PERRLA, EOMI, Normocephalic Oral: Moist Mucosa Neck: No JVD Lungs: Normal air movement Abdomen: Non-Distended Extremities: No clubbing, No cyanosis, No edema, No Calf Tenderness, - - The ulceration in the right groin is little changed in size. Dimensions are documented elsewhere. There is a large amount of biofilm, bioburden, and nonviable tissue present within the ulceration. Skin: No rashes Wound Measurements and Assessment - Nurse 1 - General Ulcer Measurement Start: 07/11/17 10:09 Freq: Status: Active Protocol: Activity Type Activity Date Activity User E-Sign Co-Sign Detail Recorded Client Recorded Date Recorded By Document 08/01/17 09:22 [facility] [id number] 08/01/17 09:27 [facility] 08/01/17 09:22 Wound Center Nurse 1 [Ulcer Assessment Protocol: .WD.LOC] #5 R Groin -Combined with other wound No -Current Size (cm) - Length 3.0 -Current Size (cm) - Width 0.7 -Current Size (cm) - Depth 0.2 -Total Square Cm 2.10 -Date of Last Picture (Recall this 08/01/17 field) -Photo Taken Yes -Epithelialization None Present -Tunneling No -Undermining/Tunneling No -Exudate Amt Small (1-33%) -Exudate Type Serous -Wound Margin Distinct, Outline Attached -Granulation Amt None Present (0 %) -Slough/Fibrin Yes -Necrosis Amt Large (67-100%) -Necrotic Tissue Type Adherent Slough -Structure Exposed N/A -Texture (Blanche-wound Skin Appearance) Scarring -Moisture (Blanche-wound Skin Appearance Assessed ) -Color (Blanche-wound Skin Appearance) Erythema -Temperature (Blanche-wound Skin No Abnormality Appearance) (Pt Warm) -Tenderness on Palpation (Blanche-wound No Skin Appearance) -Ulcer Cleansing Rinsed/ Irrigated with Saline -Foul Odor after Cleansing No -Anesthetic Used 4% Lidocaine Solution - Nurse 2 - General Ulcer CM Notes Start: 07/11/17 10:09 Freq: Status: Active Protocol: Activity Type Activity Date Activity User E-Sign Co-Sign Detail Recorded Client Recorded Date Recorded By Document 08/01/17 09:40 [id number] 08/01/17 09:45 08/01/17 09:40 Wound Center Nurse 2 [Procedure/Treatment] -Time 09:40 -Correct Patient Yes -Correct Side, Site, Position Yes -Correct Procedure Yes -Procedure Performed Yes -Type of Procedure Debridement -Clinical Debridement Subcutaneous -Post Debridement Size (cm) - Length 3.1 -Post Debridement Size (cm) - Width 0.8 -Post Debridement Size (cm) - Depth 0.2 -Total Square Cm 2.48 -Wound/Ulcer Outcome Not Healed -Ulcer Cleansing Rinsed/ Irrigated with Saline -Foul Odor after Cleansing No -Bioengineered Tissue No -Cetacaine [place] No -Topical Lidocaine (%) 4 -Lidocaine (ml) 5 -Bleeding Controlled with Pressure -Treatment Response Procedure Tolerated Well [See Physician Procedure note for Specifics] Pain Scale: 0-10 Numeric [Pain] -Is Patient Pain Free? Yes Neurological: Cranial nerves II-XII grossly intact, Neuro grossly intact Psych/Mental Status: Normal Affect, Appropriate, Alert and oriented to time, place, person, mood and affect Debridement Note Post-Debridement Measurements/Treatment - Nurse 2 - General Ulcer CM Notes Start: 07/11/17 10:09 Freq: Status: Active Protocol: Activity Type Activity Date Activity User E-Sign Co-Sign Detail Recorded Client Recorded Date Recorded By Document 07/11/17 10:30 [id number] 07/11/17 10:33 JS Document 07/25/17 11:49 JS [id number] 07/25/17 11:52 JS Document 08/01/17 09:40 [id number] 08/01/17 09:45 07/11/17 07/25/17 08/01/17 10:30 11:49 09:40 Wound Center Nurse 2 #5 R Groin -Time 10:30 11:50 09:40 -Correct Patient Yes Yes Yes -Correct Side, Site, Position Yes Yes Yes -Correct Procedure Yes Yes Yes -Procedure Performed Yes Yes Yes -Type of Procedure Debridement Debridement Debridement -Clinical Debridement Subcutaneous Subcutaneous Subcutaneous -Post Debridement Size (cm) - Length 1.6 2.9 3.1 -Post Debridement Size (cm) - Width 0.6 0.7 0.8 -Post Debridement Size (cm) - Depth 0.1 0.2 0.2 -Total Square Cm 0.96 2.03 2.48 -Wound/Ulcer Outcome Not Healed Not Healed Not Healed -Ulcer Cleansing Rinsed/ Rinsed/ Rinsed/ Irrigated with Irrigated with Irrigated with Saline Saline Saline -Foul Odor after Cleansing No No No -Bioengineered Tissue No No No -Cetacaine [place] No No -Topical Lidocaine (%) 4 4 4 -Lidocaine (ml) 5 5 5 -Bleeding Controlled with NA NA Pressure -Treatment Response Procedure Procedure Procedure Tolerated Well Tolerated Well Tolerated Well Pain Scale: 0-10 Numeric Is Patient Pain Free? 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 In the 1970's, she was diagnosed with malignant melanoma of the right calf, with metastasis to lymph nodes in the right groin. She underwent excision of the melanoma with right groin lymphadenectomy. She was subsequently treated with a long series of radiation treatments to the right groin. As result, she has developed soft tissue radiation injury, and has previously been treated at our wound center in the past with a series of approximately 90 hyperbaric oxygen therapy treatments , in 2011. She presented at this time with recurrence of soft tissue radionecrosis in the right groin. Hyperbaric oxygen therapy treatments have been initiated, and the patient is undergoing hyperbaric oxygen therapy daily. Plan: We are to transition to the use of Aquacel silver applied topically every other day. We will consider the use of PuraPly, for which we will seek preauthorization. The patient's right groin ulceration is located in an intertriginous zone, subjected to body heat and perspiration. Patient has been urged to keep the area clean and dry. The patient's recent laboratory studies have been reviewed, and it is noted that her white blood count was 14.7. Her recent culture results were positive for Staphylococcus aureus. She is to be started on doxycycline 100 mg p.o. twice daily for 10 days. A prescription has been provided. Hyperbaric oxygen therapy is indicated due to the patient's diagnosis of soft tissue radionecrosis, and is to continue. Patient will return in 1 week for reevaluation. Influenza vaccine was not administered today. Patient is not a smoker. She stands 5 feet 7 inches tall. She weighs 198 pounds. Her BMI is 31, which places her in a class I category. Weight loss has been recommended. She is to collaborate with her primary care physician in this regard.
[2017-08-01 10:36] VITALS: BP 127/75; BP 159/91; PULSE 107; PULSE 79; RESP 16; TEMP 36.3
--- NOTE | 2017-08-01 11:53 | PCM.HBO.PN ---
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 Progress: She has progressed well and tolerated HBO so far. Tolerance of hyperbaric oxygen therapy: Hyperbaric oxygen therapy was administered as per the facility's protocol. Today's session represents the 8th such hyperbaric oxygen treatment. The patient tolerated hyperbaric oxygen therapy well, without complications or complaints. Upon emergence from the hyperbaric chamber, the patient's vital signs remained stable. The patient was discharged in good condition. 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 The patient's father at age of 79 with a history of cardiomyopathy. 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
[2017-08-02 08:30] VITALS: BP 127/78; BP 146/97; PULSE 75; PULSE 93; RESP 16; TEMP 36.2
--- NOTE | 2017-08-02 08:37 | PCM.HBO.PN ---
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 Progress: She has progressed well and tolerated HBO so far. Tolerance of hyperbaric oxygen therapy: Hyperbaric oxygen therapy was administered as per the facility's protocol. The patient tolerated hyperbaric oxygen therapy well, without complications or complaints. Upon emergence from the hyperbaric chamber, the patient's vital signs remained stable. The patient was discharged in good condition. 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 The patient's father at age of 79 with a history of cardiomyopathy. 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
[2017-08-03 08:22] VITALS: BP 143/81; BP 153/77; PULSE 75; PULSE 90; RESP 16; TEMP 36.3; TEMP 36.4
--- NOTE | 2017-08-03 08:38 | PCM.HBO.PN ---
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 Progress: She has progressed well and tolerated HBO so far. Tolerance of hyperbaric oxygen therapy: Hyperbaric oxygen therapy was administered as per the facility's protocol. The patient tolerated hyperbaric oxygen therapy well, without complications or complaints. Upon emergence from the hyperbaric chamber, the patient's vital signs remained stable. The patient was discharged in good condition. 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 The patient's father at age of 79 with a history of cardiomyopathy. 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
[2017-08-04 08:25] VITALS: BP 135/90; BP 150/80; PULSE 70; PULSE 92; RESP 16; TEMP 35.9
--- NOTE | 2017-08-04 11:12 | PCM.HBO.PN ---
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 Progress: She has progressed well and tolerated HBO so far. Tolerance of hyperbaric oxygen therapy: Hyperbaric oxygen therapy was administered as per the facility's protocol. The patient tolerated hyperbaric oxygen therapy well, without complications or complaints. Upon emergence from the hyperbaric chamber, the patient's vital signs remained stable. The patient was discharged in good condition. 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 The patient's father at age of 79 with a history of cardiomyopathy. Smoking Status: Former smoker Tobacco Use: Non-smoker Physical Exam Vital Signs Temp Pulse Resp BP 96.6 F L 92 16 135/90 H 08/04/17 08:25 08/04/17 08:25 08/04/17 08:25 08/04/17 08:25 Assessment/Plan The patient appears to be tolerating hyperbaric oxygen therapy well, which will be continued as per the patient's medical plan.
[2017-08-07 08:48] VITALS: BP 128/74; BP 147/81; PULSE 67; PULSE 89; RESP 16; TEMP 36.1; TEMP 36.2
[2017-08-08 08:36] VITALS: BP 141/91; BP 145/85; PULSE 104; PULSE 92; RESP 16; TEMP 35.8; TEMP 36.6
[2017-08-08 10:12] VITALS: BP 145/85; PULSE 92; RESP 16; TEMP 36.6; BMI 68.3
--- NOTE | 2017-08-08 11:08 | PCM.WC.HP ---
(1) soft tissue radiation injury Status: Chronic Current Visit: Yes (2) Soft tissue radionecrosis Status: Chronic Current Visit: Yes Code(s): L59.8 - Other specified disorders of the skin and subcutaneous tissue related to radiation; Y84.2 - Radiological procedure and radiotherapy as the cause of abnormal reaction of the patient, or of later complication, without mention of misadventure at the time of the procedure (3) Amputee, above knee Status: Chronic Current Visit: Yes Qualifiers: Laterality: right Code(s): Z89.619 - Acquired absence of unspecified leg above knee (4) Obesity (BMI 30.0-34.9) Status: Chronic Current Visit: No Code(s): E66.9 - Obesity, unspecified (5) Ulcer of right groin Status: Acute Current Visit: Yes Qualifiers: Non-pressure ulcer stage: with fat layer exposed Code(s): L98.499 - Non-pressure chronic ulcer of skin of other sites with unspecified severity (6) GERD (gastroesophageal reflux disease) Status: Chronic Current Visit: No Code(s): K21.9 - Gastro-esophageal reflux disease without esophagitis (7) Hyperlipidemia Status: Chronic Current Visit: No Code(s): E78.5 - Hyperlipidemia, unspecified (8) History of melanoma Status: Chronic Current Visit: No Code(s): Z85.820 - Personal history of malignant melanoma of skin (9) History of uterine cancer Status: Chronic Current Visit: No Code(s): Z85.42 - Personal history of malignant neoplasm of other parts of uterus History of Present Illness Date of Service: 08/08/17 Chief Complaint: 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 The patient underwent excision of her melanoma with lymphadenectomy in the right groin. She also underwent lengthy radiation treatments at the [facility] in [place], [place]. Melanoma recurred, and the patient was subsequently treated with monoclonal antibodies in 1984. 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 Treatment included local ulcer care and hyperbaric oxygen therapy. She underwent a total of nearly 90 treatments of hyperbaric oxygen therapy. It is known that she tolerated the therapies well, and derived significant benefit. She relates no history of claustrophobia, or other complications related to the hyperbaric oxygen therapy treatments. She has no history of barotrauma to lungs, ears, etc. Her medical history has been reviewed, without any evidence of contraindications to hyperbaric oxygen therapy. Hyperbaric oxygen therapy has been reinitiated, and the patient is currently undergoing hyperbaric oxygen therapy in our facility on a daily basis. A recent wound culture was positive for Staphylococcus aureus, and the patient is in the midst of a course of oral doxycycline, prescribed for 10 day course. She is currently using Aquacel silver topically to the wound in the right groin. She continues to undergo hyperbaric oxygen therapy on a weekday basis. 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 She is undergone excision of melanoma from the right calf, with lymphadenectomy of the right groin in the 1969's. She subsequently required surgeries of the right thigh related to osteomyelitis, MRSA infection, and radiation injury to the right femoral artery. Ultimately, the patient required right above-knee amputation, performed in 2000. She also has a remote history of open reduction and internal fixation of a right ankle fracture. Allergies/Adverse Reactions: Allergies No Known Allergies Allergy (Verified 06/20/17 09:22) Home Medications: Ambulatory Orders Medication Instructions Recorded Famotidine 20 mg PO 06/20/17 Pravastatin [Pravachol] 20 mg PO DAILY 06/20/17 - Family History Maternal - - The patient's mother is 98 years of age and relatively healthy. The patient's father at age of 79 with a history of cardiomyopathy. Smoking Status: Former smoker Tobacco Use: Non-smoker Review of Systems Constitutional: Denies: Chills, Fever, Weight Change Eyes: Denies: Pain, Vision Change HEENT: Denies: Difficulty Hearing, Difficulty Swallowing, Sinus Congestion Cardiovascular: Denies: Chest Pain, Palpitations Respiratory: Denies: Cough, Shortness of Breath Gastrointestinal: Denies: Diarrhea, Nausea, Vomiting Genitourinary: Denies: Dysuria, Hematuria Endocrine: Denies: Heat/ Cold Intolerance, Polydipsia, Polyuria Hematologic/ Lymphatic: Denies: Easy Bruising, Easy Bleeding - Physical Exam Vital Signs Temp Pulse Resp BP 98 F 92 16 145/85 H 08/08/17 10:12 08/08/17 10:12 08/08/17 10:12 08/08/17 10:12 General: Alert, Oriented x3, Cooperative, No apparent distress, Well developed, Well nourished HEENT: Atraumatic, PERRLA, EOMI, Normocephalic Oral: Moist Mucosa Neck: No JVD Lungs: Normal air movement Abdomen: Non-Distended Extremities: No clubbing, No cyanosis, No edema, No Calf Tenderness, - - The patient in the right groin is little changed, though there are now areas of pink healthy granulation tissue in the ulcer bed. Dimensions are documented elsewhere. There is a moderate amount of biofilm and bioburden, with some persisting necrotic tissue. Skin: No rashes Wound Measurements and Assessment - Nurse 1 - General Ulcer Measurement Start: 07/11/17 10:09 Freq: Status: Active Protocol: Activity Type Activity Date Activity User E-Sign Co-Sign Detail Recorded Client Recorded Date Recorded By Document 08/08/17 10:12 [facility] [id number] 08/08/17 10:17 [facility] 08/08/17 10:12 Wound Center Nurse 1 [Ulcer Assessment Protocol: KISHA.WD.LOC] #5 R Groin -Combined with other wound No -Current Size (cm) - Length 3 -Current Size (cm) - Width 0.7 -Current Size (cm) - Depth 0.3 -Total Square Cm 2.1 -Photo Taken No -Epithelialization None Present -Tunneling No -Undermining/Tunneling No -Exudate Amt Small (1-33%) -Exudate Type Serosanguineous -Wound Margin Distinct, Outline Attached -Granulation Amt None Present (0 %) -Slough/Fibrin Yes -Necrosis Amt Large (67-100%) -Necrotic Tissue Type Adherent Slough -Structure Exposed N/A -Texture (Blanche-wound Skin Appearance) Scarring -Moisture (Blanche-wound Skin Appearance Assessed ) -Color (Blanche-wound Skin Appearance) Erythema -Temperature (Blanche-wound Skin No Abnormality Appearance) (Pt Warm) -Tenderness on Palpation (Blanche-wound No Skin Appearance) -Ulcer Cleansing Rinsed/ Irrigated with Saline -Foul Odor after Cleansing No -Anesthetic Used 5% Lidocaine Gel Neurological: Cranial nerves II-XII grossly intact, Neuro grossly intact Psych/Mental Status: Normal Affect, Appropriate, Alert and oriented to time, place, person, mood and affect Debridement Note Post-Debridement Measurements/Treatment WC - Nurse 2 - General Ulcer CM Notes Start: 07/11/17 10:09 Freq: Status: Active Protocol: Activity Type Activity Date Activity User E-Sign Co-Sign Detail Recorded Client Recorded Date Recorded By Document 07/11/17 10:30 [id number] 07/11/17 10:33 Document 07/25/17 11:49 [id number] 07/25/17 11:52 JS Document 08/01/17 09:40 [id number] 08/01/17 09:45 07/11/17 07/25/17 08/01/17 10:30 11:49 09:40 Wound Center Nurse 2 #5 R Groin -Time 10:30 11:50 09:40 -Correct Patient Yes Yes Yes -Correct Side, Site, Position Yes Yes Yes -Correct Procedure Yes Yes Yes -Procedure Performed Yes Yes Yes -Type of Procedure Debridement Debridement Debridement -Clinical Debridement Subcutaneous Subcutaneous Subcutaneous -Post Debridement Size (cm) - Length 1.6 2.9 3.1 -Post Debridement Size (cm) - Width 0.6 0.7 0.8 -Post Debridement Size (cm) - Depth 0.1 0.2 0.2 -Total Square Cm 0.96 2.03 2.48 -Wound/Ulcer Outcome Not Healed Not Healed Not Healed -Ulcer Cleansing Rinsed/ Rinsed/ Rinsed/ Irrigated with Irrigated with Irrigated with Saline Saline Saline -Foul Odor after Cleansing No No No -Bioengineered Tissue No No No -Cetacaine [place] No No -Topical Lidocaine (%) 4 4 4 -Lidocaine (ml) 5 5 5 -Bleeding Controlled with NA NA Pressure -Treatment Response Procedure Procedure Procedure Tolerated Well Tolerated Well Tolerated Well Pain Scale: 0-10 Numeric Is Patient Pain Free? 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 In the 1970's, she was diagnosed with malignant melanoma of the right calf, with metastasis to lymph nodes in the right groin. She underwent excision of the melanoma with right groin lymphadenectomy. She was subsequently treated with a long series of radiation treatments to the right groin. As result, she has developed soft tissue radiation injury, and has previously been treated at our wound center in the past with a series of approximately 90 hyperbaric oxygen therapy treatments, in 2011. She presented at this time with recurrence of soft tissue radionecrosis in the right groin. Hyperbaric oxygen therapy treatments have been initiated, and the patient is undergoing hyperbaric oxygen therapy daily on weekdays. Plan: We are to continue the use of Aquacel silver applied topically every other day. We will consider the use of PuraPly, for which we will seek preauthorization. The patient's right groin ulceration is located in an intertriginous zone, subjected to body heat and perspiration. Patient has been urged to keep the area clean and dry. The patient's recent laboratory studies have been reviewed, and it is noted that her white blood count was 14.7. Her recent culture results were positive for Staphylococcus aureus. She has been started on doxycycline 100 mg p.o. twice daily for 10 days. A prescription has been provided. Hyperbaric oxygen therapy is indicated due to the patient's diagnosis of soft tissue radionecrosis, and is to continue. Patient will return in 1 week for reevaluation. Influenza vaccine was not administered today. Patient is not a smoker. She stands 5 feet 7 inches tall. She weighs 198 pounds. Her BMI is 31, which places her in a class I category. Weight loss has been recommended. She is to collaborate with her primary care physician in this regard.
--- NOTE | 2017-08-08 11:13 | HP.PCM_ITS ---
(1) soft tissue radiation injury Status: Chronic Current Visit: Yes (2) Soft tissue radionecrosis Status: Chronic Current Visit: Yes Code(s): L59.8 - Other specified disorders of the skin and subcutaneous tissue related to radiation; Y84.2 - Radiological procedure and radiotherapy as the cause of abnormal reaction of the patient, or of later complication, without mention of misadventure at the time of the procedure (3) Amputee, above knee Status: Chronic Current Visit: Yes Qualifiers: Laterality: right Code(s): Z89.619 - Acquired absence of unspecified leg above knee (4) Obesity (BMI 30.0-34.9) Status: Chronic Current Visit: No Code(s): E66.9 - Obesity, unspecified (5) Ulcer of right groin Status: Acute Current Visit: Yes Qualifiers: Non-pressure ulcer stage: with fat layer exposed Code(s): L98.499 - Non-pressure chronic ulcer of skin of other sites with unspecified severity (6) GERD (gastroesophageal reflux disease) Status: Chronic Current Visit: No Code(s): K21.9 - Gastro-esophageal reflux disease without esophagitis (7) Hyperlipidemia Status: Chronic Current Visit: No Code(s): E78.5 - Hyperlipidemia, unspecified (8) History of melanoma Status: Chronic Current Visit: No Code(s): Z85.820 - Personal history of malignant melanoma of skin (9) History of uterine cancer Status: Chronic Current Visit: No Code(s): Z85.42 - Personal history of malignant neoplasm of other parts of uterus History of Present Illness Date of Service: 08/08/17 Chief Complaint: 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 The patient underwent excision of her melanoma with lymphadenectomy in the right groin. She also underwent lengthy radiation treatments at the [facility] in [place], [place]. Melanoma recurred, and the patient was subsequently treated with monoclonal antibodies in 1984. 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 Treatment included local ulcer care and hyperbaric oxygen therapy. She underwent a total of nearly 90 treatments of hyperbaric oxygen therapy. It is known that she tolerated the therapies well, and derived significant benefit. She relates no history of claustrophobia, or other complications related to the hyperbaric oxygen therapy treatments. She has no history of barotrauma to lungs , ears, etc. Her medical history has been reviewed, without any evidence of contraindications to hyperbaric oxygen therapy. Hyperbaric oxygen therapy has been reinitiated, and the patient is currently undergoing hyperbaric oxygen therapy in our facility on a daily basis. A recent wound culture was positive for Staphylococcus aureus, and the patient is in the midst of a course of oral doxycycline, prescribed for 10 day course. She is currently using Aquacel silver topically to the wound in the right groin. She continues to undergo hyperbaric oxygen therapy on a weekday basis. 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 She is undergone excision of melanoma from the right calf, with lymphadenectomy of the right groin in the 1969's. She subsequently required surgeries of the right thigh related to osteomyelitis, MRSA infection, and radiation injury to the right femoral artery. Ultimately, the patient required right above-knee amputation, performed in 2000. She also has a remote history of open reduction and internal fixation of a right ankle fracture. Allergies/Adverse Reactions: Allergies No Known Allergies Allergy (Verified 06/20/17 09:22) Home Medications: Ambulatory Orders Medication Instructions Recorded Famotidine 20 mg PO 06/20/17 Pravastatin [Pravachol] 20 mg PO DAILY 06/20/17 - Family History Maternal - - The patient's mother is 98 years of age and relatively healthy. The patient 's father at age of 79 with a history of cardiomyopathy. Smoking Status: Former smoker Tobacco Use: Non-smoker Review of Systems Constitutional: Denies: Chills, Fever, Weight Change Eyes: Denies: Pain, Vision Change HEENT: Denies: Difficulty Hearing, Difficulty Swallowing, Sinus Congestion Cardiovascular: Denies: Chest Pain, Palpitations Respiratory: Denies: Cough, Shortness of Breath Gastrointestinal: Denies: Diarrhea, Nausea, Vomiting Genitourinary: Denies: Dysuria, Hematuria Endocrine: Denies: Heat/ Cold Intolerance, Polydipsia, Polyuria Hematologic/ Lymphatic: Denies: Easy Bruising, Easy Bleeding - Physical Exam Vital Signs Temp Pulse Resp BP 98 F 92 16 145/85 H 08/08/17 10:12 08/08/17 10:12 08/08/17 10:12 08/08/17 10:12 General: Alert, Oriented x3, Cooperative, No apparent distress, Well developed, Well nourished HEENT: Atraumatic, PERRLA, EOMI, Normocephalic Oral: Moist Mucosa Neck: No JVD Lungs: Normal air movement Abdomen: Non-Distended Extremities: No clubbing, No cyanosis, No edema, No Calf Tenderness, - - The patient in the right groin is little changed, though there are now areas of pink healthy granulation tissue in the ulcer bed. Dimensions are documented elsewhere. There is a moderate amount of biofilm and bioburden, with some persisting necrotic tissue. Skin: No rashes Wound Measurements and Assessment - Nurse 1 - General Ulcer Measurement Start: 07/11/17 10:09 Freq: Status: Active Protocol: Activity Type Activity Date Activity User E-Sign Co-Sign Detail Recorded Client Recorded Date Recorded By Document 08/08/17 10:12 [facility] [id number] 08/08/17 10:17 [facility] 08/08/17 10:12 Wound Center Nurse 1 [Ulcer Assessment Protocol: KISHA.WD.LOC] #5 R Groin -Combined with other wound No -Current Size (cm) - Length 3 -Current Size (cm) - Width 0.7 -Current Size (cm) - Depth 0.3 -Total Square Cm 2.1 -Photo Taken No -Epithelialization None Present -Tunneling No -Undermining/Tunneling No -Exudate Amt Small (1-33%) -Exudate Type Serosanguineous -Wound Margin Distinct, Outline Attached -Granulation Amt None Present (0 %) -Slough/Fibrin Yes -Necrosis Amt Large (67-100%) -Necrotic Tissue Type Adherent Slough -Structure Exposed N/A -Texture (Blanche-wound Skin Appearance) Scarring -Moisture (Blanche-wound Skin Appearance Assessed ) -Color (Blanche-wound Skin Appearance) Erythema -Temperature (Blanche-wound Skin No Abnormality Appearance) (Pt Warm) -Tenderness on Palpation (Blanche-wound No Skin Appearance) -Ulcer Cleansing Rinsed/ Irrigated with Saline -Foul Odor after Cleansing No -Anesthetic Used 5% Lidocaine Gel Neurological: Cranial nerves II-XII grossly intact, Neuro grossly intact Psych/Mental Status: Normal Affect, Appropriate, Alert and oriented to time, place, person, mood and affect Debridement Note Post-Debridement Measurements/Treatment WC - Nurse 2 - General Ulcer CM Notes Start: 07/11/17 10:09 Freq: Status: Active Protocol: Activity Type Activity Date Activity User E-Sign Co-Sign Detail Recorded Client Recorded Date Recorded By Document 07/11/17 10:30 [id number] 07/11/17 10:33 Document 07/25/17 11:49 [id number] 07/25/17 11:52 JS Document 08/01/17 09:40 [id number] 08/01/17 09:45 07/11/17 07/25/17 08/01/17 10:30 11:49 09:40 Wound Center Nurse 2 #5 R Groin -Time 10:30 11:50 09:40 -Correct Patient Yes Yes Yes -Correct Side, Site, Position Yes Yes Yes -Correct Procedure Yes Yes Yes -Procedure Performed Yes Yes Yes -Type of Procedure Debridement Debridement Debridement -Clinical Debridement Subcutaneous Subcutaneous Subcutaneous -Post Debridement Size (cm) - Length 1.6 2.9 3.1 -Post Debridement Size (cm) - Width 0.6 0.7 0.8 -Post Debridement Size (cm) - Depth 0.1 0.2 0.2 -Total Square Cm 0.96 2.03 2.48 -Wound/Ulcer Outcome Not Healed Not Healed Not Healed -Ulcer Cleansing Rinsed/ Rinsed/ Rinsed/ Irrigated with Irrigated with Irrigated with Saline Saline Saline -Foul Odor after Cleansing No No No -Bioengineered Tissue No No No -Cetacaine [place] No No -Topical Lidocaine (%) 4 4 4 -Lidocaine (ml) 5 5 5 -Bleeding Controlled with NA NA Pressure -Treatment Response Procedure Procedure Procedure Tolerated Well Tolerated Well Tolerated Well Pain Scale: 0-10 Numeric Is Patient Pain Free? 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 In the 1970's, she was diagnosed with malignant melanoma of the right calf, with metastasis to lymph nodes in the right groin. She underwent excision of the melanoma with right groin lymphadenectomy. She was subsequently treated with a long series of radiation treatments to the right groin. As result, she has developed soft tissue radiation injury, and has previously been treated at our wound center in the past with a series of approximately 90 hyperbaric oxygen therapy treatments , in 2011. She presented at this time with recurrence of soft tissue radionecrosis in the right groin. Hyperbaric oxygen therapy treatments have been initiated, and the patient is undergoing hyperbaric oxygen therapy daily on weekdays. Plan: We are to continue the use of Aquacel silver applied topically every other day. We will consider the use of PuraPly, for which we will seek preauthorization. The patient's right groin ulceration is located in an intertriginous zone, subjected to body heat and perspiration. Patient has been urged to keep the area clean and dry. The patient's recent laboratory studies have been reviewed, and it is noted that her white blood count was 14.7. Her recent culture results were positive for Staphylococcus aureus. She has been started on doxycycline 100 mg p.o. twice daily for 10 days. A prescription has been provided. Hyperbaric oxygen therapy is indicated due to the patient's diagnosis of soft tissue radionecrosis, and is to continue. Patient will return in 1 week for reevaluation. Influenza vaccine was not administered today. Patient is not a smoker. She stands 5 feet 7 inches tall. She weighs 198 pounds. Her BMI is 31, which places her in a class I category. Weight loss has been recommended. She is to collaborate with her primary care physician in this regard.
--- NOTE | 2017-08-08 11:51 | PCM.HBO.PN ---
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 Progress: Treatment #13 hyperbaric oxygen therapy. Tolerance of hyperbaric oxygen therapy: Hyperbaric oxygen therapy was administered as per the facility's protocol. The patient tolerated hyperbaric oxygen therapy well, without complications or complaints. Upon emergence from the hyperbaric chamber, the patient's vital signs remained stable. The patient was discharged in good condition. 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 The patient's father at age of 79 with a history of cardiomyopathy. Smoking Status: Former smoker Tobacco Use: Non-smoker Physical Exam Vital Signs Temp Pulse Resp BP 98 F 92 16 145/85 H 08/08/17 10:12 08/08/17 10:12 08/08/17 10:12 08/08/17 10:12 General: Alert, Oriented x3, Cooperative, No apparent distress, Well developed, Well nourished HEENT: Atraumatic, PERRLA, EOMI, Normocephalic Lungs: Normal air movement Psych/Mental Status: Normal Affect, Appropriate, Alert and oriented to time, place, person, mood and affect Assessment/Plan Active Problems soft tissue radiation injury (Chronic) Soft tissue radionecrosis (Chronic) Amputee, above knee (Chronic) Ulcer of right groin (Acute) Patient appears to be tolerating hyperbaric oxygen therapy well, which will be continued as per the patient's medical plan.
[2017-08-09 08:21] VITALS: BP 120/77; BP 125/68; PULSE 76; PULSE 87; RESP 16; TEMP 36.4; TEMP 36.6
--- NOTE | 2017-08-09 09:23 | PCM.HBO.PN ---
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 Progress: Progressing well. She is tolerating Hyperbaric Oxygen Therapy. Tolerance of hyperbaric oxygen therapy: Hyperbaric oxygen therapy was administered as per the facility's protocol. The patient tolerated hyperbaric oxygen therapy well, without complications or complaints. Upon emergence from the hyperbaric chamber, the patient's vital signs remained stable. The patient was discharged in good condition. 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 The patient's father at age of 79 with a history of cardiomyopathy. Smoking Status: Former smoker Tobacco Use: Non-smoker Physical Exam Vital Signs Temp Pulse Resp BP 97.9 F 87 16 120/77 08/09/17 08:21 08/09/17 08:21 08/09/17 08:21 08/09/17 08:21 General: Alert, Oriented x3, Cooperative, No apparent distress HEENT: Atraumatic, Normocephalic, TM's Clear Lungs: Normal air movement Cardiovascular: Regular rate Psych/Mental Status: Normal Affect Assessment/Plan Active Problems soft tissue radiation injury (Chronic) Soft tissue radionecrosis (Chronic) Amputee, above knee (Chronic) Ulcer of right groin (Acute) Patient appears to be tolerating hyperbaric oxygen therapy well, which will be continued as per the patient's medical plan.
--- NOTE | 2017-08-10 21:53 | PCM.HBO.PN ---
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 Progress: Progressing well. She is tolerating Hyperbaric Oxygen Therapy. Tolerance of hyperbaric oxygen therapy: Hyperbaric oxygen therapy was administered as per the facility's protocol. The patient tolerated hyperbaric oxygen therapy well, without complications or complaints. Upon emergence from the hyperbaric chamber, the patient's vital signs remained stable. The patient was discharged in good condition. 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 The patient's father at age of 79 with a history of cardiomyopathy. Smoking Status: Former smoker Tobacco Use: Non-smoker Physical Exam Vital Signs Temp Pulse Resp BP 97.9 F 87 16 120/77 08/09/17 08:21 08/09/17 08:21 08/09/17 08:21 08/09/17 08:21
--- NOTE | 2017-09-04 22:14 | PCM.HBO.PN ---
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 Progress: Treatment #29 hyperbaric oxygen therapy. Tolerance of hyperbaric oxygen therapy: Hyperbaric oxygen therapy was administered as per the facility's protocol. The patient tolerated hyperbaric oxygen therapy well, without complications or complaints. Upon emergence from the hyperbaric chamber, the patient's vital signs remained stable. The patient was discharged in good condition. 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 The patient's father at age of 79 with a history of cardiomyopathy. Smoking Status: Former smoker Tobacco Use: Non-smoker Physical Exam Vital Signs Temp Pulse Resp BP 97.9 F 87 16 120/77 08/09/17 08:21 08/09/17 08:21 08/09/17 08:21 08/09/17 08:21
== END 2017-08-09 23:59 ==
LOC: WC 10:00
PROVIDERS: Family Provider Family Medicine; PCP Family Medicine; Visit Provider Surgery
DX: L59.8 Other specified disorders of the skin and subcutaneous tissue related to radiation (principal); L98.492 Non-pressure chronic ulcer of skin of other sites with fat layer exposed; Y84.2 Radiological procedure and radiotherapy as the cause of abnormal reaction of the patient, or of later complication, without mention of misadventure at the time of the procedure; E66.9 Obesity, unspecified; Z68.31 Body mass index [BMI] 31.0-31.9, adult; Z71.3 Dietary counseling and surveillance; Z89.611 Acquired absence of right leg above knee; K21.9 Gastro-esophageal reflux disease without esophagitis; E78.5 Hyperlipidemia, unspecified; Z85.820 Personal history of malignant melanoma of skin; Z85.42 Personal history of malignant neoplasm of other parts of uterus; Z86.14 Personal history of Methicillin resistant Staphylococcus aureus infection; Z79.899 Other long term (current) drug therapy; Z87.891 Personal history of nicotine dependence; B95.61 Methicillin susceptible Staphylococcus aureus infection as the cause of diseases classified elsewhere
CPT/HCPCS: 11042; 87070; 87075; 87077; 87186; 87205; 99183; G0277

== ENCOUNTER 2017-09-06 08:00 | Outpatient (RCR) | payer OTHER, SELFPAY ==
[2017-08-09 08:21] VITALS: BP 120/77; BP 125/68
[2017-08-10 00:52] VITALS: PULSE 76; RESP 16; TEMP 36.4
[2017-08-10 08:57] VITALS: BP 133/65; BP 140/72; PULSE 76; PULSE 88; RESP 16; TEMP 36.4; TEMP 36.6
--- NOTE | 2017-08-10 13:14 | PCM.HBO.PN ---
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 Progress: The patient is tolerating hyperbaric oxygen therapy well so far. Tolerance of hyperbaric oxygen therapy: Hyperbaric oxygen therapy was administered as per the facility's protocol. The patient tolerated hyperbaric oxygen therapy well without complications or complaints. Upon emergence from the hyperbaric chamber, the patient's vital signs remained stable. She was discharged in good condition. 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 The patient's father at age of 79 with a history of cardiomyopathy. Smoking Status: Former smoker Tobacco Use: Non-smoker Physical Exam Vital Signs Temp Pulse Resp BP 97.6 F L 88 16 140/72 H 08/10/17 08:57 08/10/17 08:57 08/10/17 08:57 08/10/17 08:57 General: Alert, Oriented x3, Cooperative, No apparent distress HEENT: Atraumatic, Normocephalic, TM's Clear Lungs: Normal air movement Cardiovascular: Regular rate Psych/Mental Status: Normal Affect Assessment/Plan The patient appears to be tolerating hyperbaric oxygen therapy well, which would be continued per the patient's medical plan.
[2017-08-11 08:28] VITALS: BP 121/88; BP 139/79; PULSE 73; PULSE 94; RESP 16; TEMP 36.5; TEMP 36.6
--- NOTE | 2017-08-11 10:47 | PCM.HBO.PN ---
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 Progress: The patient is tolerating hyperbaric oxygen therapy well so far. Tolerance of hyperbaric oxygen therapy: Hyperbaric oxygen therapy was administered as per the facility's protocol. The patient tolerated hyperbaric oxygen therapy well without complications or complaints. Upon emergence from the hyperbaric chamber, the patient's vital signs remained stable. She was discharged in good condition. 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 The patient's father at age of 79 with a history of cardiomyopathy. Smoking Status: Former smoker Tobacco Use: Non-smoker Physical Exam Vital Signs Temp Pulse Resp BP 98 F 94 16 139/79 H 08/11/17 08:28 08/11/17 08:28 08/11/17 08:28 08/11/17 08:28 Assessment/Plan The patient appears to be tolerating hyperbaric oxygen therapy well, which would be continued per the patient's medical plan.
[2017-08-14 08:26] VITALS: BP 119/85; BP 131/88; PULSE 87; PULSE 92; RESP 16; TEMP 36.6; TEMP 37
[2017-08-14 12:58] VITALS: BP 152/86; PULSE 99; RESP 18; TEMP 35.7; BMI 68.3
--- NOTE | 2017-08-14 14:08 | PCM.WC.HP ---
(1) soft tissue radiation injury Status: Chronic Current Visit: Yes (2) Soft tissue radionecrosis Status: Chronic Current Visit: Yes Code(s): L59.8 - Other specified disorders of the skin and subcutaneous tissue related to radiation; Y84.2 - Radiological procedure and radiotherapy as the cause of abnormal reaction of the patient, or of later complication, without mention of misadventure at the time of the procedure (3) Amputee, above knee Status: Chronic Current Visit: No Qualifiers: Laterality: right Code(s): Z89.619 - Acquired absence of unspecified leg above knee (4) Obesity (BMI 30.0-34.9) Status: Chronic Current Visit: No Code(s): E66.9 - Obesity, unspecified (5) Ulcer of right groin Status: Chronic Current Visit: Yes Qualifiers: Non-pressure ulcer stage: with fat layer exposed Code(s): L98.499 - Non-pressure chronic ulcer of skin of other sites with unspecified severity (6) GERD (gastroesophageal reflux disease) Status: Chronic Current Visit: No Code(s): K21.9 - Gastro-esophageal reflux disease without esophagitis (7) Hyperlipidemia Status: Chronic Current Visit: No Code(s): E78.5 - Hyperlipidemia, unspecified (8) History of melanoma Status: Chronic Current Visit: No Code(s): Z85.820 - Personal history of malignant melanoma of skin (9) History of uterine cancer Status: Chronic Current Visit: No Code(s): Z85.42 - Personal history of malignant neoplasm of other parts of uterus History of Present Illness Date of Service: 08/14/17 Chief Complaint: 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 The patient underwent excision of her melanoma with lymphadenectomy in the right groin. She also underwent lengthy radiation treatments at the [facility] in [place], [place]. Melanoma recurred, and the patient was subsequently treated with monoclonal antibodies in 1984. 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 Treatment included local ulcer care and hyperbaric oxygen therapy. She underwent a total of nearly 90 treatments of hyperbaric oxygen therapy. It is known that she tolerated the therapies well, and derived significant benefit. She relates no history of claustrophobia, or other complications related to the hyperbaric oxygen therapy treatments. She has no history of barotrauma to lungs, ears, etc. Her medical history has been reviewed, without any evidence of contraindications to hyperbaric oxygen therapy. Hyperbaric oxygen therapy has been reinitiated, and the patient is currently undergoing hyperbaric oxygen therapy in our facility on a daily basis. A recent wound culture was positive for Staphylococcus aureus, and the patient has completed a course of oral doxycycline, prescribed for 10 days. She is currently using Aquacel silver topically to the wound in the right groin. She continues to undergo hyperbaric oxygen therapy on a weekday basis. Past Medical History Past Medical History: Chronic Problems soft tissue radiation injury (Chronic) Soft tissue radionecrosis (Chronic) Amputee, above knee (Chronic) Obesity (BMI 30.0-34.9) (Chronic) Ulcer of right groin (Chronic) GERD (gastroesophageal reflux disease) (Chronic) Hyperlipidemia (Chronic) History of melanoma (Chronic) History of uterine cancer (Chronic) Surgical History: - - Patient has previously undergone total hysterectomy. She is undergone excision of melanoma from the right calf, with lymphadenectomy of the right groin in the 1969's. She subsequently required surgeries of the right thigh related to osteomyelitis, MRSA infection, and radiation injury to the right femoral artery. Ultimately, the patient required right above-knee amputation, performed in 2000. She also has a remote history of open reduction and internal fixation of a right ankle fracture. Allergies/Adverse Reactions: Allergies No Known Allergies Allergy (Verified 06/20/17 09:22) Home Medications: Ambulatory Orders Medication Instructions Recorded Famotidine 20 mg PO 06/20/17 Pravastatin [Pravachol] 20 mg PO DAILY 06/20/17 - Family History Maternal - - The patient's mother is 98 years of age and relatively healthy. The patient's father at age of 79 with a history of cardiomyopathy. Smoking Status: Former smoker Tobacco Use: Non-smoker Review of Systems Constitutional: Denies: Chills, Fever, Weight Change Eyes: Denies: Pain, Vision Change HEENT: Denies: Difficulty Hearing, Difficulty Swallowing, Sinus Congestion Cardiovascular: Denies: Chest Pain, Palpitations Respiratory: Denies: Cough, Shortness of Breath Gastrointestinal: Denies: Diarrhea, Nausea, Vomiting Genitourinary: Denies: Dysuria, Hematuria Endocrine: Denies: Heat/ Cold Intolerance, Polydipsia, Polyuria Hematologic/ Lymphatic: Denies: Easy Bruising, Easy Bleeding - Physical Exam Vital Signs Temp Pulse Resp BP 96.3 F L 99 18 152/86 H 08/14/17 12:58 08/14/17 12:58 08/14/17 12:58 08/14/17 12:58 General: Alert, Oriented x3, Cooperative, No apparent distress, Well developed, Well nourished HEENT: Atraumatic, PERRLA, EOMI, Normocephalic Oral: Moist Mucosa Neck: No JVD Lungs: Normal air movement Abdomen: Non-Distended Extremities: No clubbing, No cyanosis, No edema, No Calf Tenderness, - - The patient has a right above-knee amputation. The ulceration in the right groin is relatively unchanged. Dimensions are documented elsewhere. There is no sign of infection or cellulitis. The base of the ulceration continues to appear fibrous and poorly vascularized. Skin: No rashes Wound Measurements and Assessment - Nurse 1 - General Ulcer Measurement Start: 08/10/17 08:57 Freq: Status: Active Protocol: Activity Type Activity Date Activity User E-Sign Co-Sign Detail Recorded Client Recorded Date Recorded By Document 08/14/17 12:58 [id number] 08/14/17 13:00 08/14/17 12:58 Wound Center Nurse 1 [Ulcer Assessment Protocol: WC.WD.LOC] #5 R Groin -Combined with other wound No -Current Size (cm) - Length 2.8 -Current Size (cm) - Width 0.5 -Current Size (cm) - Depth 0.3 -Total Square Cm 1.40 -Photo Taken No -Epithelialization Small 1-33% -Tunneling No -Undermining/Tunneling No -Circular Undermining No -Classification - Thickness Full Thickness without Exposed Support Structure -Exudate Amt Small (1-33%) -Exudate Type Purulent -Wound Margin Distinct, Outline Attached -Granulation Amt None Present (0 %) -Granulation Quality N/A -Slough/Fibrin Yes -Necrosis Amt Large (67-100%) -Necrotic Tissue Type Adherent Slough -Structure Exposed Fascia Fat Layer Exposed -Texture (Blanche-wound Skin Appearance) Scarring -Moisture (Blanche-wound Skin Appearance No Abnormality ) -Color (Blanche-wound Skin Appearance) Erythema -Temperature (Blanche-wound Skin No Abnormality Appearance) (Pt Warm) -Tenderness on Palpation (Blanche-wound No Skin Appearance) -Ulcer Cleansing Rinsed/ Irrigated with Saline -Foul Odor after Cleansing No -Anesthetic Used 5% Lidocaine Gel [Edema Assessment] -Lower Limb Edema Present No WC - Nurse 2 - General Ulcer CM Notes Start: 08/10/17 08:57 Freq: Status: Active Protocol: Activity Type Activity Date Activity User E-Sign Co-Sign Detail Recorded Client Recorded Date Recorded By Document 08/14/17 13:53 [email or web address] [id number] 08/14/17 14:03 08/14/17 13:53 Wound Center Nurse 2 [Procedure/Treatment] #5 R Groin -Time 13:53 -Correct Patient Yes -Correct Side, Site, Position Yes -Correct Procedure Yes -Procedure Performed Yes -Type of Procedure Debridement -Clinical Debridement Subcutaneous -Post Debridement Size (cm) - Length 2.9 -Post Debridement Size (cm) - Width 0.6 -Post Debridement Size (cm) - Depth 0.3 -Total Square Cm 1.74 -Wound/Ulcer Outcome Not Healed -Ulcer Cleansing Rinsed/ Irrigated with Saline -Foul Odor after Cleansing No -Bioengineered Tissue No -Bleeding Controlled with NA -Treatment Response Procedure Tolerated Well [See Physician Procedure note for Specifics] Pain Scale: 0-10 Numeric [Pain] -Is Patient Pain Free? Yes Neurological: Cranial nerves II-XII grossly intact, Neuro grossly intact Psych/Mental Status: Normal Affect, Appropriate, Alert and oriented to time, place, person, mood and affect Debridement Note Post-Debridement Measurements/Treatment - Nurse 2 - General Ulcer CM Notes Start: 08/10/17 08:57 Freq: Status: Active Protocol: Activity Type Activity Date Activity User E-Sign Co-Sign Detail Recorded Client Recorded Date Recorded By Document 08/14/17 13:53 [id number] 08/14/17 14:03 JS 08/14/17 13:53 Wound Center Nurse 2 #5 R Groin -Time 13:53 -Correct Patient Yes -Correct Side, Site, Position Yes -Correct Procedure Yes -Procedure Performed Yes -Type of Procedure Debridement -Clinical Debridement Subcutaneous -Post Debridement Size (cm) - Length 2.9 -Post Debridement Size (cm) - Width 0.6 -Post Debridement Size (cm) - Depth 0.3 -Total Square Cm 1.74 -Wound/Ulcer Outcome Not Healed -Ulcer Cleansing Rinsed/ Irrigated with Saline -Foul Odor after Cleansing No -Bioengineered Tissue No -Bleeding Controlled with NA -Treatment Response Procedure Tolerated Well Pain Scale: 0-10 Numeric Is Patient Pain Free? Yes Laterality: Right - Groin Type of Debridement: Excisional debridement Anesthesia Used: 4% Lidocaine Solution Depth: Down to and including healthy tissue, in the subcutaneous layer Percentage of wound debrided: 100 Instrument Used: 5mm curette Severity: Fat Layer Exposed Amount of bleeding with debridement: Mild Bleeding Controlled with: Compression and gauze Patient tolerated procedure well Assessment/Plan Active Problems soft tissue radiation injury (Chronic) Soft tissue radionecrosis (Chronic) Ulcer of right groin (Chronic) Assessment: This is a 62-year-old female with a somewhat complicated and complex past medical history, documented above. In the 1970's, she was diagnosed with malignant melanoma of the right calf, with metastasis to lymph nodes in the right groin. She underwent excision of the melanoma with right groin lymphadenectomy. She was subsequently treated with a long series of radiation treatments to the right groin. As result, she has developed soft tissue radiation injury, and has previously been treated at our wound center in the past with a series of approximately 90 hyperbaric oxygen therapy treatments, in 2011. She presented at this time with recurrence of soft tissue radionecrosis in the right groin. Hyperbaric oxygen therapy treatments have been initiated, and the patient is undergoing hyperbaric oxygen therapy daily on weekdays. Plan: We are to resume the use of collagenase Santyl topically on a daily basis. It is hoped that this will help with debridement of the fibrous and fibrotic material at the base of the patient's ulceration. There are to consider the use of PuraPly, for which we will seek preauthorization. The patient's right groin ulceration is located in an intertriginous zone, subjected to body heat and perspiration. Patient has been urged to keep the area clean and dry. The patient's recent laboratory studies have been reviewed, and it is noted that her white blood count was 14.7. Her recent culture results were positive for Staphylococcus aureus. She has completed a course of doxycycline 100 mg p.o. twice daily for 10 days. Hyperbaric oxygen therapy is indicated due to the patient's diagnosis of soft tissue radionecrosis, and is to continue. Patient will return in 1 week for reevaluation. Influenza vaccine was not administered today. Patient is not a smoker. She stands 5 feet 7 inches tall. She weighs 198 pounds. Her BMI is 31, which places her in a class I category. Weight loss has been recommended. She is to collaborate with her primary care physician in this regard.
--- NOTE | 2017-08-14 14:15 | HP.PCM_ITS ---
(1) soft tissue radiation injury Status: Chronic Current Visit: Yes (2) Soft tissue radionecrosis Status: Chronic Current Visit: Yes Code(s): L59.8 - Other specified disorders of the skin and subcutaneous tissue related to radiation; Y84.2 - Radiological procedure and radiotherapy as the cause of abnormal reaction of the patient, or of later complication, without mention of misadventure at the time of the procedure (3) Amputee, above knee Status: Chronic Current Visit: No Qualifiers: Laterality: right Code(s): Z89.619 - Acquired absence of unspecified leg above knee (4) Obesity (BMI 30.0-34.9) Status: Chronic Current Visit: No Code(s): E66.9 - Obesity, unspecified (5) Ulcer of right groin Status: Chronic Current Visit: Yes Qualifiers: Non-pressure ulcer stage: with fat layer exposed Code(s): L98.499 - Non-pressure chronic ulcer of skin of other sites with unspecified severity (6) GERD (gastroesophageal reflux disease) Status: Chronic Current Visit: No Code(s): K21.9 - Gastro-esophageal reflux disease without esophagitis (7) Hyperlipidemia Status: Chronic Current Visit: No Code(s): E78.5 - Hyperlipidemia, unspecified (8) History of melanoma Status: Chronic Current Visit: No Code(s): Z85.820 - Personal history of malignant melanoma of skin (9) History of uterine cancer Status: Chronic Current Visit: No Code(s): Z85.42 - Personal history of malignant neoplasm of other parts of uterus History of Present Illness Date of Service: 08/14/17 Chief Complaint: 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 The patient underwent excision of her melanoma with lymphadenectomy in the right groin. She also underwent lengthy radiation treatments at the [facility] in [place], [place]. Melanoma recurred, and the patient was subsequently treated with monoclonal antibodies in 1984. 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 Treatment included local ulcer care and hyperbaric oxygen therapy. She underwent a total of nearly 90 treatments of hyperbaric oxygen therapy. It is known that she tolerated the therapies well, and derived significant benefit. She relates no history of claustrophobia, or other complications related to the hyperbaric oxygen therapy treatments. She has no history of barotrauma to lungs , ears, etc. Her medical history has been reviewed, without any evidence of contraindications to hyperbaric oxygen therapy. Hyperbaric oxygen therapy has been reinitiated, and the patient is currently undergoing hyperbaric oxygen therapy in our facility on a daily basis. A recent wound culture was positive for Staphylococcus aureus, and the patient has completed a course of oral doxycycline, prescribed for 10 days. She is currently using Aquacel silver topically to the wound in the right groin. She continues to undergo hyperbaric oxygen therapy on a weekday basis. Past Medical History Past Medical History: Chronic Problems soft tissue radiation injury (Chronic) Soft tissue radionecrosis (Chronic) Amputee, above knee (Chronic) Obesity (BMI 30.0-34.9) (Chronic) Ulcer of right groin (Chronic) GERD (gastroesophageal reflux disease) (Chronic) Hyperlipidemia (Chronic) History of melanoma (Chronic) History of uterine cancer (Chronic) Surgical History: - - Patient has previously undergone total hysterectomy. She is undergone excision of melanoma from the right calf, with lymphadenectomy of the right groin in the 1969's. She subsequently required surgeries of the right thigh related to osteomyelitis, MRSA infection, and radiation injury to the right femoral artery. Ultimately, the patient required right above-knee amputation, performed in 2000. She also has a remote history of open reduction and internal fixation of a right ankle fracture. Allergies/Adverse Reactions: Allergies No Known Allergies Allergy (Verified 06/20/17 09:22) Home Medications: Ambulatory Orders Medication Instructions Recorded Famotidine 20 mg PO 06/20/17 Pravastatin [Pravachol] 20 mg PO DAILY 06/20/17 - Family History Maternal - - The patient's mother is 98 years of age and relatively healthy. The patient 's father at age of 79 with a history of cardiomyopathy. Smoking Status: Former smoker Tobacco Use: Non-smoker Review of Systems Constitutional: Denies: Chills, Fever, Weight Change Eyes: Denies: Pain, Vision Change HEENT: Denies: Difficulty Hearing, Difficulty Swallowing, Sinus Congestion Cardiovascular: Denies: Chest Pain, Palpitations Respiratory: Denies: Cough, Shortness of Breath Gastrointestinal: Denies: Diarrhea, Nausea, Vomiting Genitourinary: Denies: Dysuria, Hematuria Endocrine: Denies: Heat/ Cold Intolerance, Polydipsia, Polyuria Hematologic/ Lymphatic: Denies: Easy Bruising, Easy Bleeding - Physical Exam Vital Signs Temp Pulse Resp BP 96.3 F L 99 18 152/86 H 08/14/17 12:58 08/14/17 12:58 08/14/17 12:58 08/14/17 12:58 General: Alert, Oriented x3, Cooperative, No apparent distress, Well developed, Well nourished HEENT: Atraumatic, PERRLA, EOMI, Normocephalic Oral: Moist Mucosa Neck: No JVD Lungs: Normal air movement Abdomen: Non-Distended Extremities: No clubbing, No cyanosis, No edema, No Calf Tenderness, - - The patient has a right above-knee amputation. The ulceration in the right groin is relatively unchanged. Dimensions are documented elsewhere. There is no sign of infection or cellulitis. The base of the ulceration continues to appear fibrous and poorly vascularized. Skin: No rashes Wound Measurements and Assessment - Nurse 1 - General Ulcer Measurement Start: 08/10/17 08:57 Freq: Status: Active Protocol: Activity Type Activity Date Activity User E-Sign Co-Sign Detail Recorded Client Recorded Date Recorded By Document 08/14/17 12:58 [id number] 08/14/17 13:00 08/14/17 12:58 Wound Center Nurse 1 [Ulcer Assessment Protocol: WC.WD.LOC] #5 R Groin -Combined with other wound No -Current Size (cm) - Length 2.8 -Current Size (cm) - Width 0.5 -Current Size (cm) - Depth 0.3 -Total Square Cm 1.40 -Photo Taken No -Epithelialization Small 1-33% -Tunneling No -Undermining/Tunneling No -Circular Undermining No -Classification - Thickness Full Thickness without Exposed Support Structure -Exudate Amt Small (1-33%) -Exudate Type Purulent -Wound Margin Distinct, Outline Attached -Granulation Amt None Present (0 %) -Granulation Quality N/A -Slough/Fibrin Yes -Necrosis Amt Large (67-100%) -Necrotic Tissue Type Adherent Slough -Structure Exposed Fascia Fat Layer Exposed -Texture (Blanche-wound Skin Appearance) Scarring -Moisture (Blanche-wound Skin Appearance No Abnormality ) -Color (Blanche-wound Skin Appearance) Erythema -Temperature (Blanche-wound Skin No Abnormality Appearance) (Pt Warm) -Tenderness on Palpation (Blanche-wound No Skin Appearance) -Ulcer Cleansing Rinsed/ Irrigated with Saline -Foul Odor after Cleansing No -Anesthetic Used 5% Lidocaine Gel [Edema Assessment] -Lower Limb Edema Present No WC - Nurse 2 - General Ulcer CM Notes Start: 08/10/17 08:57 Freq: Status: Active Protocol: Activity Type Activity Date Activity User E-Sign Co-Sign Detail Recorded Client Recorded Date Recorded By Document 08/14/17 13:53 KEILA [id number] 08/14/17 14:03 08/14/17 13:53 Wound Center Nurse 2 [Procedure/Treatment] #5 R Groin -Time 13:53 -Correct Patient Yes -Correct Side, Site, Position Yes -Correct Procedure Yes -Procedure Performed Yes -Type of Procedure Debridement -Clinical Debridement Subcutaneous -Post Debridement Size (cm) - Length 2.9 -Post Debridement Size (cm) - Width 0.6 -Post Debridement Size (cm) - Depth 0.3 -Total Square Cm 1.74 -Wound/Ulcer Outcome Not Healed -Ulcer Cleansing Rinsed/ Irrigated with Saline -Foul Odor after Cleansing No -Bioengineered Tissue No -Bleeding Controlled with NA -Treatment Response Procedure Tolerated Well [See Physician Procedure note for Specifics] Pain Scale: 0-10 Numeric [Pain] -Is Patient Pain Free? Yes Neurological: Cranial nerves II-XII grossly intact, Neuro grossly intact Psych/Mental Status: Normal Affect, Appropriate, Alert and oriented to time, place, person, mood and affect Debridement Note Post-Debridement Measurements/Treatment - Nurse 2 - General Ulcer CM Notes Start: 08/10/17 08:57 Freq: Status: Active Protocol: Activity Type Activity Date Activity User E-Sign Co-Sign Detail Recorded Client Recorded Date Recorded By Document 08/14/17 13:53 [id number] 08/14/17 14:03 JS 08/14/17 13:53 Wound Center Nurse 2 #5 R Groin -Time 13:53 -Correct Patient Yes -Correct Side, Site, Position Yes -Correct Procedure Yes -Procedure Performed Yes -Type of Procedure Debridement -Clinical Debridement Subcutaneous -Post Debridement Size (cm) - Length 2.9 -Post Debridement Size (cm) - Width 0.6 -Post Debridement Size (cm) - Depth 0.3 -Total Square Cm 1.74 -Wound/Ulcer Outcome Not Healed -Ulcer Cleansing Rinsed/ Irrigated with Saline -Foul Odor after Cleansing No -Bioengineered Tissue No -Bleeding Controlled with NA -Treatment Response Procedure Tolerated Well Pain Scale: 0-10 Numeric Is Patient Pain Free? Yes Laterality: Right - Groin Type of Debridement: Excisional debridement Anesthesia Used: 4% Lidocaine Solution Depth: Down to and including healthy tissue, in the subcutaneous layer Percentage of wound debrided: 100 Instrument Used: 5mm curette Severity: Fat Layer Exposed Amount of bleeding with debridement: Mild Bleeding Controlled with: Compression and gauze Patient tolerated procedure well Assessment/Plan Active Problems soft tissue radiation injury (Chronic) Soft tissue radionecrosis (Chronic) Ulcer of right groin (Chronic) Assessment: This is a 62-year-old female with a somewhat complicated and complex past medical history, documented above. In the 1970's, she was diagnosed with malignant melanoma of the right calf, with metastasis to lymph nodes in the right groin. She underwent excision of the melanoma with right groin lymphadenectomy. She was subsequently treated with a long series of radiation treatments to the right groin. As result, she has developed soft tissue radiation injury, and has previously been treated at our wound center in the past with a series of approximately 90 hyperbaric oxygen therapy treatments , in 2011. She presented at this time with recurrence of soft tissue radionecrosis in the right groin. Hyperbaric oxygen therapy treatments have been initiated, and the patient is undergoing hyperbaric oxygen therapy daily on weekdays. Plan: We are to resume the use of collagenase Santyl topically on a daily basis. It is hoped that this will help with debridement of the fibrous and fibrotic material at the base of the patient's ulceration. There are to consider the use of PuraPly, for which we will seek preauthorization. The patient's right groin ulceration is located in an intertriginous zone, subjected to body heat and perspiration. Patient has been urged to keep the area clean and dry. The patient's recent laboratory studies have been reviewed , and it is noted that her white blood count was 14.7. Her recent culture results were positive for Staphylococcus aureus. She has completed a course of doxycycline 100 mg p.o. twice daily for 10 days. Hyperbaric oxygen therapy is indicated due to the patient's diagnosis of soft tissue radionecrosis, and is to continue. Patient will return in 1 week for reevaluation. Influenza vaccine was not administered today. Patient is not a smoker. She stands 5 feet 7 inches tall. She weighs 198 pounds. Her BMI is 31, which places her in a class I category. Weight loss has been recommended. She is to collaborate with her primary care physician in this regard.
--- NOTE | 2017-08-14 22:35 | PCM.HBO.PN ---
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 Progress: Treatment #17 hyperbaric oxygen therapy. Tolerance of hyperbaric oxygen therapy: Hyperbaric oxygen therapy was administered as per the facility's protocol. The patient tolerated hyperbaric oxygen therapy well, without complications or complaints. Upon emergence from the hyperbaric chamber, the patient's vital signs remained stable. The patient was discharged in good condition. 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 The patient's father at age of 79 with a history of cardiomyopathy. Smoking Status: Former smoker Tobacco Use: Non-smoker Physical Exam Vital Signs Temp Pulse Resp BP 99.3 F H 99 16 149/90 H 08/18/17 08:53 08/18/17 08:53 08/18/17 08:53 08/18/17 08:53 Assessment/Plan Active Problems Ulcer of right groin (Chronic) Soft tissue radionecrosis (Chronic) soft tissue radiation injury (Chronic)
[2017-08-17 09:21] VITALS: BP 132/84; PULSE 100; RESP 16; TEMP 36.8
--- NOTE | 2017-08-17 18:27 | PCM.HBO.PN ---
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 Progress: The patient has been tolerating hyperbaric oxygen therapy well so far. Tolerance of hyperbaric oxygen therapy: Hyperbaric oxygen therapy was administered as per the facility's protocol. Patient however had complaints of right ear pain and HBO was subsequently discontinued per protocol. Her left tympanic membrane and inner ear was noted to be erythemic. No discharge appreciated. No tenderness after discontinuation. 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 The patient's father at age of 79 with a history of cardiomyopathy. Smoking Status: Former smoker Tobacco Use: Non-smoker Physical Exam Vital Signs Temp Pulse Resp BP 98.2 F 100 16 132/84 H 08/17/17 09:21 08/17/17 09:21 08/17/17 09:21 08/17/17 09:21 General: Alert, Oriented x3, Cooperative, No apparent distress HEENT: - - Erythemic tympanic membrane and middle ear surrounding membrane. Lungs: Normal air movement Cardiovascular: Regular rate Psych/Mental Status: Normal Affect Assessment/Plan HBO was discontinued as earlier stated. Examination findings also documented. No significant pain on examination and also no discharge from left ear canal. Advised on decongestants as patient has had recent episodes of what appears to URI. To be re evaluated tomorrow. She was discharged in stable condition.
[2017-08-18 08:53] VITALS: BP 134/73; BP 149/90; PULSE 82; PULSE 99; RESP 16; TEMP 36.9; TEMP 37.4
--- NOTE | 2017-08-18 11:35 | PCM.HBO.PN ---
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 Progress: The patient has been tolerating hyperbaric oxygen therapy well so far. Tolerance of hyperbaric oxygen therapy: Hyperbaric oxygen therapy was administered as per the facility's protocol. Patient however had complaints of right ear pain and HBO was subsequently discontinued per protocol. Her left tympanic membrane and inner ear was noted to be erythemic. No discharge appreciated. No tenderness after discontinuation. 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 The patient's father at age of 79 with a history of cardiomyopathy. Smoking Status: Former smoker Tobacco Use: Non-smoker Physical Exam Vital Signs Temp Pulse Resp BP 99.3 F H 99 16 149/90 H 08/18/17 08:53 08/18/17 08:53 08/18/17 08:53 08/18/17 08:53 Assessment/Plan HBO was discontinued as earlier stated. Examination findings also documented. No significant pain on examination and also no discharge from left ear canal. Advised on decongestants as patient has had recent episodes of what appears to URI. To be re evaluated tomorrow. She was discharged in stable condition.
[2017-08-21 08:37] VITALS: BP 128/86; BP 152/83; PULSE 74; PULSE 90; RESP 16; TEMP 36.4; TEMP 36.8
--- NOTE | 2017-08-21 16:47 | PCM.HBO.PN ---
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 Progress: Treatment #19 hyperbaric oxygen therapy. Tolerance of hyperbaric oxygen therapy: Hyperbaric oxygen therapy was administered as per the facility's protocol. The patient tolerated hyperbaric oxygen therapy well, without complications or complaints. Upon emergence from the hyperbaric chamber, the patient's vital signs remained stable. The patient was discharged in good condition. 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 The patient's father at age of 79 with a history of cardiomyopathy. Smoking Status: Former smoker Tobacco Use: Non-smoker Physical Exam Vital Signs Temp Pulse Resp BP 97.6 F L 90 16 152/83 H 08/21/17 08:37 08/21/17 08:37 08/21/17 08:37 08/21/17 08:37 Assessment/Plan Active Problems Ulcer of right groin (Chronic) Soft tissue radionecrosis (Chronic) soft tissue radiation injury (Chronic)
[2017-08-22 08:16] VITALS: BP 118/63; PULSE 88; RESP 16; TEMP 36.6
[2017-08-22 10:08] VITALS: BP 143/84; PULSE 79; RESP 16; TEMP 36.6; BMI 68.3
--- NOTE | 2017-08-22 10:47 | PCM.WC.HP ---
(1) soft tissue radiation injury Status: Chronic Current Visit: Yes (2) Soft tissue radionecrosis Status: Chronic Current Visit: Yes Code(s): L59.8 - Other specified disorders of the skin and subcutaneous tissue related to radiation; Y84.2 - Radiological procedure and radiotherapy as the cause of abnormal reaction of the patient, or of later complication, without mention of misadventure at the time of the procedure (3) Amputee, above knee Status: Chronic Current Visit: No Qualifiers: Laterality: right Code(s): Z89.619 - Acquired absence of unspecified leg above knee (4) Obesity (BMI 30.0-34.9) Status: Chronic Current Visit: No Code(s): E66.9 - Obesity, unspecified (5) Ulcer of right groin Status: Chronic Current Visit: Yes Qualifiers: Non-pressure ulcer stage: with fat layer exposed Code(s): L98.499 - Non-pressure chronic ulcer of skin of other sites with unspecified severity (6) GERD (gastroesophageal reflux disease) Status: Chronic Current Visit: No Code(s): K21.9 - Gastro-esophageal reflux disease without esophagitis (7) Hyperlipidemia Status: Chronic Current Visit: No Code(s): E78.5 - Hyperlipidemia, unspecified (8) History of melanoma Status: Chronic Current Visit: No Code(s): Z85.820 - Personal history of malignant melanoma of skin (9) History of uterine cancer Status: Chronic Current Visit: No Code(s): Z85.42 - Personal history of malignant neoplasm of other parts of uterus History of Present Illness Date of Service: 08/22/17 Chief Complaint: 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 The patient underwent excision of her melanoma with lymphadenectomy in the right groin. She also underwent lengthy radiation treatments at the [facility] in [place], [place]. Melanoma recurred, and the patient was subsequently treated with monoclonal antibodies in 1984. 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 Treatment included local ulcer care and hyperbaric oxygen therapy. She underwent a total of nearly 90 treatments of hyperbaric oxygen therapy. It is known that she tolerated the therapies well, and derived significant benefit. She relates no history of claustrophobia, or other complications related to the hyperbaric oxygen therapy treatments. She has no history of barotrauma to lungs, ears, etc. Her medical history has been reviewed, without any evidence of contraindications to hyperbaric oxygen therapy. Hyperbaric oxygen therapy has been reinitiated, and the patient is currently undergoing hyperbaric oxygen therapy in our facility on a daily basis. A recent wound culture was positive for Staphylococcus aureus, and the patient has completed a course of oral doxycycline, prescribed for 10 days. She is currently using collagenase Santyl topically to the wound in the right groin. She continues to undergo hyperbaric oxygen therapy on a weekday basis. 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 She is undergone excision of melanoma from the right calf, with lymphadenectomy of the right groin in the 1969's. She subsequently required surgeries of the right thigh related to osteomyelitis, MRSA infection, and radiation injury to the right femoral artery. Ultimately, the patient required right above-knee amputation, performed in 2000. She also has a remote history of open reduction and internal fixation of a right ankle fracture. Allergies/Adverse Reactions: Allergies No Known Allergies Allergy (Verified 06/20/17 09:22) Home Medications: Ambulatory Orders Medication Instructions Recorded Famotidine 20 mg PO 06/20/17 Pravastatin [Pravachol] 20 mg PO DAILY 06/20/17 - Family History Maternal - - The patient's mother is 98 years of age and relatively healthy. The patient's father at age of 79 with a history of cardiomyopathy. Smoking Status: Former smoker Tobacco Use: Non-smoker Review of Systems Constitutional: Denies: Chills, Fever, Weight Change Eyes: Denies: Pain, Vision Change HEENT: Denies: Difficulty Hearing, Difficulty Swallowing, Sinus Congestion Cardiovascular: Denies: Chest Pain, Palpitations Respiratory: Denies: Cough, Shortness of Breath Gastrointestinal: Denies: Diarrhea, Nausea, Vomiting Genitourinary: Denies: Dysuria, Hematuria Endocrine: Denies: Heat/ Cold Intolerance, Polydipsia, Polyuria Hematologic/ Lymphatic: Denies: Easy Bruising, Easy Bleeding - Physical Exam Vital Signs Temp Pulse Resp BP 97.8 F 79 16 143/84 H 08/22/17 10:08 08/22/17 10:08 08/22/17 10:08 08/22/17 10:08 General: Alert, Oriented x3, Cooperative, No apparent distress, Well developed, Well nourished HEENT: Atraumatic, PERRLA, EOMI, Normocephalic Oral: Moist Mucosa Neck: No JVD Lungs: Normal air movement Abdomen: Non-Distended Extremities: No clubbing, No cyanosis, No edema, No Calf Tenderness, - - The ulceration of the right groin is little changed in appearance. There is a large amount of biofilm and bioburden. Fibrous tissue persists. Dimensions are documented elsewhere. There is no obvious sign of infection or cellulitis. Wound Measurements and Assessment - Nurse 1 - General Ulcer Measurement Start: 08/10/17 08:57 Freq: Status: Active Protocol: Activity Type Activity Date Activity User E-Sign Co-Sign Detail Recorded Client Recorded Date Recorded By Document 08/22/17 10:08 [facility] [id number] 08/22/17 10:16 [facility] 08/22/17 10:08 Wound Center Nurse 1 [Ulcer Assessment Protocol: KISHA.WD.LOC] #5 R Groin -Combined with other wound No -Current Size (cm) - Length 3.2 -Current Size (cm) - Width 0.5 -Current Size (cm) - Depth 0.3 -Total Square Cm 1.60 -Photo Taken No -Epithelialization None Present -Tunneling No -Undermining/Tunneling No -Exudate Amt Small (1-33%) -Exudate Type Serosanguineous -Wound Margin Distinct, Outline Attached -Granulation Amt None Present (0 %) -Slough/Fibrin Yes -Necrosis Amt Large (67-100%) -Necrotic Tissue Type Adherent Slough -Structure Exposed N/A -Texture (Blanche-wound Skin Appearance) Scarring -Moisture (Blanche-wound Skin Appearance Dry/Scaly ) -Color (Blanche-wound Skin Appearance) Erythema -Temperature (Blanche-wound Skin No Abnormality Appearance) (Pt Warm) -Tenderness on Palpation (Blanche-wound No Skin Appearance) -Ulcer Cleansing Rinsed/ Irrigated with Saline -Foul Odor after Cleansing No -Anesthetic Used 5% Lidocaine Gel - Nurse 2 - General Ulcer CM Notes Start: 08/10/17 08:57 Freq: Status: Active Protocol: Activity Type Activity Date Activity User E-Sign Co-Sign Detail Recorded Client Recorded Date Recorded By Document 08/22/17 10:30 [id number] 08/22/17 10:38 08/22/17 10:30 Wound Center Nurse 2 [Procedure/Treatment] -Time 10:30 -Correct Patient Yes -Correct Side, Site, Position Yes -Correct Procedure Yes -Procedure Performed Yes -Type of Procedure Debridement -Clinical Debridement Subcutaneous -Post Debridement Size (cm) - Length 3.3 -Post Debridement Size (cm) - Width 0.6 -Post Debridement Size (cm) - Depth 0.3 -Total Square Cm 1.98 -Wound/Ulcer Outcome Not Healed -Ulcer Cleansing Rinsed/ Irrigated with Saline -Foul Odor after Cleansing No -Bioengineered Tissue No -Topical Lidocaine (%) 4 -Lidocaine (ml) 5 -Bleeding Controlled with NA -Treatment Response Procedure Tolerated Well [See Physician Procedure note for Specifics] Pain Scale: 0-10 Numeric [Pain] -Is Patient Pain Free? Yes Neurological: Cranial nerves II-XII grossly intact, Neuro grossly intact Psych/Mental Status: Normal Affect, Appropriate, Alert and oriented to time, place, person, mood and affect Debridement Note Post-Debridement Measurements/Treatment - Nurse 2 - General Ulcer CM Notes Start: 08/10/17 08:57 Freq: Status: Active Protocol: Activity Type Activity Date Activity User E-Sign Co-Sign Detail Recorded Client Recorded Date Recorded By Document 08/14/17 13:53 [id number] 08/14/17 14:03 Document 08/22/17 10:30 [id number] 08/22/17 10:38 JS 08/14/17 08/22/17 13:53 10:30 Wound Center Nurse 2 #5 R Groin -Time 13:53 10:30 -Correct Patient Yes Yes -Correct Side, Site, Position Yes Yes -Correct Procedure Yes Yes -Procedure Performed Yes Yes -Type of Procedure Debridement Debridement -Clinical Debridement Subcutaneous Subcutaneous -Post Debridement Size (cm) - Length 2.9 3.3 -Post Debridement Size (cm) - Width 0.6 0.6 -Post Debridement Size (cm) - Depth 0.3 0.3 -Total Square Cm 1.74 1.98 -Wound/Ulcer Outcome Not Healed Not Healed -Ulcer Cleansing Rinsed/ Rinsed/ Irrigated with Irrigated with Saline Saline -Foul Odor after Cleansing No No -Bioengineered Tissue No No -Topical Lidocaine (%) 4 -Lidocaine (ml) 5 -Bleeding Controlled with NA NA -Treatment Response Procedure Procedure Tolerated Well Tolerated Well Pain Scale: 0-10 Numeric Is Patient Pain Free? 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 In the 1970's, she was diagnosed with malignant melanoma of the right calf, with metastasis to lymph nodes in the right groin. She underwent excision of the melanoma with right groin lymphadenectomy. She was subsequently treated with a long series of radiation treatments to the right groin. As result, she has developed soft tissue radiation injury, and has previously been treated at our wound center in the past with a series of approximately 90 hyperbaric oxygen therapy treatments, in 2011. She presented at this time with recurrence of soft tissue radionecrosis in the right groin. Hyperbaric oxygen therapy treatments have been initiated, and the patient is undergoing hyperbaric oxygen therapy daily on weekdays. Plan: We are to continue the use of collagenase Santyl topically on a daily basis. It is hoped that this will help with debridement of the fibrous and fibrotic material at the base of the patient's ulceration. There are to consider the use of PuraPly, for which we will seek preauthorization. The patient's right groin ulceration is located in an intertriginous zone, subjected to body heat and perspiration. Patient has been urged to keep the area clean and dry. The patient's recent laboratory studies have been reviewed, and it is noted that her white blood count was 14.7. Her recent culture results were positive for Staphylococcus aureus. She has completed a course of doxycycline 100 mg p.o. twice daily for 10 days. Hyperbaric oxygen therapy is indicated due to the patient's diagnosis of soft tissue radionecrosis, and is to continue. Patient will return in 1 week for reevaluation. Influenza vaccine was not administered today. Patient is not a smoker. She stands 5 feet 7 inches tall. She weighs 198 pounds. Her BMI is 31, which places her in a class I category. Weight loss has been recommended. She is to collaborate with her primary care physician in this regard.
--- NOTE | 2017-08-22 10:56 | HP.PCM_ITS ---
(1) soft tissue radiation injury Status: Chronic Current Visit: Yes (2) Soft tissue radionecrosis Status: Chronic Current Visit: Yes Code(s): L59.8 - Other specified disorders of the skin and subcutaneous tissue related to radiation; Y84.2 - Radiological procedure and radiotherapy as the cause of abnormal reaction of the patient, or of later complication, without mention of misadventure at the time of the procedure (3) Amputee, above knee Status: Chronic Current Visit: No Qualifiers: Laterality: right Code(s): Z89.619 - Acquired absence of unspecified leg above knee (4) Obesity (BMI 30.0-34.9) Status: Chronic Current Visit: No Code(s): E66.9 - Obesity, unspecified (5) Ulcer of right groin Status: Chronic Current Visit: Yes Qualifiers: Non-pressure ulcer stage: with fat layer exposed Code(s): L98.499 - Non-pressure chronic ulcer of skin of other sites with unspecified severity (6) GERD (gastroesophageal reflux disease) Status: Chronic Current Visit: No Code(s): K21.9 - Gastro-esophageal reflux disease without esophagitis (7) Hyperlipidemia Status: Chronic Current Visit: No Code(s): E78.5 - Hyperlipidemia, unspecified (8) History of melanoma Status: Chronic Current Visit: No Code(s): Z85.820 - Personal history of malignant melanoma of skin (9) History of uterine cancer Status: Chronic Current Visit: No Code(s): Z85.42 - Personal history of malignant neoplasm of other parts of uterus History of Present Illness Date of Service: 08/22/17 Chief Complaint: 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 The patient underwent excision of her melanoma with lymphadenectomy in the right groin. She also underwent lengthy radiation treatments at the [facility] in [place], [place]. Melanoma recurred, and the patient was subsequently treated with monoclonal antibodies in 1984. 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 Treatment included local ulcer care and hyperbaric oxygen therapy. She underwent a total of nearly 90 treatments of hyperbaric oxygen therapy. It is known that she tolerated the therapies well, and derived significant benefit. She relates no history of claustrophobia, or other complications related to the hyperbaric oxygen therapy treatments. She has no history of barotrauma to lungs , ears, etc. Her medical history has been reviewed, without any evidence of contraindications to hyperbaric oxygen therapy. Hyperbaric oxygen therapy has been reinitiated, and the patient is currently undergoing hyperbaric oxygen therapy in our facility on a daily basis. A recent wound culture was positive for Staphylococcus aureus, and the patient has completed a course of oral doxycycline, prescribed for 10 days. She is currently using collagenase Santyl topically to the wound in the right groin. She continues to undergo hyperbaric oxygen therapy on a weekday basis. 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 She is undergone excision of melanoma from the right calf, with lymphadenectomy of the right groin in the 1969's. She subsequently required surgeries of the right thigh related to osteomyelitis, MRSA infection, and radiation injury to the right femoral artery. Ultimately, the patient required right above-knee amputation, performed in 2000. She also has a remote history of open reduction and internal fixation of a right ankle fracture. Allergies/Adverse Reactions: Allergies No Known Allergies Allergy (Verified 06/20/17 09:22) Home Medications: Ambulatory Orders Medication Instructions Recorded Famotidine 20 mg PO 06/20/17 Pravastatin [Pravachol] 20 mg PO DAILY 06/20/17 - Family History Maternal - - The patient's mother is 98 years of age and relatively healthy. The patient 's father at age of 79 with a history of cardiomyopathy. Smoking Status: Former smoker Tobacco Use: Non-smoker Review of Systems Constitutional: Denies: Chills, Fever, Weight Change Eyes: Denies: Pain, Vision Change HEENT: Denies: Difficulty Hearing, Difficulty Swallowing, Sinus Congestion Cardiovascular: Denies: Chest Pain, Palpitations Respiratory: Denies: Cough, Shortness of Breath Gastrointestinal: Denies: Diarrhea, Nausea, Vomiting Genitourinary: Denies: Dysuria, Hematuria Endocrine: Denies: Heat/ Cold Intolerance, Polydipsia, Polyuria Hematologic/ Lymphatic: Denies: Easy Bruising, Easy Bleeding - Physical Exam Vital Signs Temp Pulse Resp BP 97.8 F 79 16 143/84 H 08/22/17 10:08 08/22/17 10:08 08/22/17 10:08 08/22/17 10:08 General: Alert, Oriented x3, Cooperative, No apparent distress, Well developed, Well nourished HEENT: Atraumatic, PERRLA, EOMI, Normocephalic Oral: Moist Mucosa Neck: No JVD Lungs: Normal air movement Abdomen: Non-Distended Extremities: No clubbing, No cyanosis, No edema, No Calf Tenderness, - - The ulceration of the right groin is little changed in appearance. There is a large amount of biofilm and bioburden. Fibrous tissue persists. Dimensions are documented elsewhere. There is no obvious sign of infection or cellulitis. Wound Measurements and Assessment - Nurse 1 - General Ulcer Measurement Start: 08/10/17 08:57 Freq: Status: Active Protocol: Activity Type Activity Date Activity User E-Sign Co-Sign Detail Recorded Client Recorded Date Recorded By Document 08/22/17 10:08 [facility] [id number] 08/22/17 10:16 [facility] 08/22/17 10:08 Wound Center Nurse 1 [Ulcer Assessment Protocol: KISHA.WD.LOC] #5 R Groin -Combined with other wound No -Current Size (cm) - Length 3.2 -Current Size (cm) - Width 0.5 -Current Size (cm) - Depth 0.3 -Total Square Cm 1.60 -Photo Taken No -Epithelialization None Present -Tunneling No -Undermining/Tunneling No -Exudate Amt Small (1-33%) -Exudate Type Serosanguineous -Wound Margin Distinct, Outline Attached -Granulation Amt None Present (0 %) -Slough/Fibrin Yes -Necrosis Amt Large (67-100%) -Necrotic Tissue Type Adherent Slough -Structure Exposed N/A -Texture (Blanche-wound Skin Appearance) Scarring -Moisture (Blanche-wound Skin Appearance Dry/Scaly ) -Color (Blanche-wound Skin Appearance) Erythema -Temperature (Blanche-wound Skin No Abnormality Appearance) (Pt Warm) -Tenderness on Palpation (Blanche-wound No Skin Appearance) -Ulcer Cleansing Rinsed/ Irrigated with Saline -Foul Odor after Cleansing No -Anesthetic Used 5% Lidocaine Gel - Nurse 2 - General Ulcer CM Notes Start: 08/10/17 08:57 Freq: Status: Active Protocol: Activity Type Activity Date Activity User E-Sign Co-Sign Detail Recorded Client Recorded Date Recorded By Document 08/22/17 10:30 [id number] 08/22/17 10:38 08/22/17 10:30 Wound Center Nurse 2 [Procedure/Treatment] -Time 10:30 -Correct Patient Yes -Correct Side, Site, Position Yes -Correct Procedure Yes -Procedure Performed Yes -Type of Procedure Debridement -Clinical Debridement Subcutaneous -Post Debridement Size (cm) - Length 3.3 -Post Debridement Size (cm) - Width 0.6 -Post Debridement Size (cm) - Depth 0.3 -Total Square Cm 1.98 -Wound/Ulcer Outcome Not Healed -Ulcer Cleansing Rinsed/ Irrigated with Saline -Foul Odor after Cleansing No -Bioengineered Tissue No -Topical Lidocaine (%) 4 -Lidocaine (ml) 5 -Bleeding Controlled with NA -Treatment Response Procedure Tolerated Well [See Physician Procedure note for Specifics] Pain Scale: 0-10 Numeric [Pain] -Is Patient Pain Free? Yes Neurological: Cranial nerves II-XII grossly intact, Neuro grossly intact Psych/Mental Status: Normal Affect, Appropriate, Alert and oriented to time, place, person, mood and affect Debridement Note Post-Debridement Measurements/Treatment - Nurse 2 - General Ulcer CM Notes Start: 08/10/17 08:57 Freq: Status: Active Protocol: Activity Type Activity Date Activity User E-Sign Co-Sign Detail Recorded Client Recorded Date Recorded By Document 08/14/17 13:53 [id number] 08/14/17 14:03 Document 08/22/17 10:30 [id number] 08/22/17 10:38 JS 08/14/17 08/22/17 13:53 10:30 Wound Center Nurse 2 #5 R Groin -Time 13:53 10:30 -Correct Patient Yes Yes -Correct Side, Site, Position Yes Yes -Correct Procedure Yes Yes -Procedure Performed Yes Yes -Type of Procedure Debridement Debridement -Clinical Debridement Subcutaneous Subcutaneous -Post Debridement Size (cm) - Length 2.9 3.3 -Post Debridement Size (cm) - Width 0.6 0.6 -Post Debridement Size (cm) - Depth 0.3 0.3 -Total Square Cm 1.74 1.98 -Wound/Ulcer Outcome Not Healed Not Healed -Ulcer Cleansing Rinsed/ Rinsed/ Irrigated with Irrigated with Saline Saline -Foul Odor after Cleansing No No -Bioengineered Tissue No No -Topical Lidocaine (%) 4 -Lidocaine (ml) 5 -Bleeding Controlled with NA NA -Treatment Response Procedure Procedure Tolerated Well Tolerated Well Pain Scale: 0-10 Numeric Is Patient Pain Free? 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 In the 1970's, she was diagnosed with malignant melanoma of the right calf, with metastasis to lymph nodes in the right groin. She underwent excision of the melanoma with right groin lymphadenectomy. She was subsequently treated with a long series of radiation treatments to the right groin. As result, she has developed soft tissue radiation injury, and has previously been treated at our wound center in the past with a series of approximately 90 hyperbaric oxygen therapy treatments , in 2011. She presented at this time with recurrence of soft tissue radionecrosis in the right groin. Hyperbaric oxygen therapy treatments have been initiated, and the patient is undergoing hyperbaric oxygen therapy daily on weekdays. Plan: We are to continue the use of collagenase Santyl topically on a daily basis. It is hoped that this will help with debridement of the fibrous and fibrotic material at the base of the patient's ulceration. There are to consider the use of PuraPly, for which we will seek preauthorization. The patient's right groin ulceration is located in an intertriginous zone, subjected to body heat and perspiration. Patient has been urged to keep the area clean and dry. The patient's recent laboratory studies have been reviewed , and it is noted that her white blood count was 14.7. Her recent culture results were positive for Staphylococcus aureus. She has completed a course of doxycycline 100 mg p.o. twice daily for 10 days. Hyperbaric oxygen therapy is indicated due to the patient's diagnosis of soft tissue radionecrosis, and is to continue. Patient will return in 1 week for reevaluation. Influenza vaccine was not administered today. Patient is not a smoker. She stands 5 feet 7 inches tall. She weighs 198 pounds. Her BMI is 31, which places her in a class I category. Weight loss has been recommended. She is to collaborate with her primary care physician in this regard.
--- NOTE | 2017-08-22 12:44 | HBO.PN.PCM_ITS ---
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 Progress: The patient has been tolerating hyperbaric oxygen therapy well so far. Tolerance of hyperbaric oxygen therapy: Hyperbaric oxygen therapy was administered as per the facility's protocol. Today's session represents the 20th such hyperbaric oxygen treatment. Hyperbaric oxygen therapy was well- tolerated, without complaints or complications. Upon emergence from the hyperbaric chamber, patient's vital signs remained stable. She was discharged in good condition. There was no evidence of otic barotrauma with today's session. 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 The patient's father at age of 79 with a history of cardiomyopathy. Smoking Status: Former smoker Tobacco Use: Non-smoker Physical Exam Vital Signs Temp Pulse Resp BP 97.8 F 79 16 143/84 H 08/22/17 10:08 08/22/17 10:08 08/22/17 10:08 08/22/17 10:08 General: Alert, Oriented x3, Cooperative, No apparent distress, Well developed, Well nourished HEENT: Atraumatic, PERRLA, EOMI, Normocephalic Lungs: Normal air movement Psych/Mental Status: Normal Affect, Appropriate, Alert and oriented to time, place, person, mood and affect Assessment/Plan Active Problems Ulcer of right groin (Chronic) Soft tissue radionecrosis (Chronic) soft tissue radiation injury (Chronic) She tolerated hyperbaric oxygen therapy well, which will continue as per the patient's medical plan.
[2017-08-23 08:21] VITALS: BP 124/97; BP 147/94; PULSE 71; PULSE 94; RESP 16; TEMP 36.5; TEMP 36.8
--- NOTE | 2017-08-23 08:30 | HBO.PN.PCM_ITS ---
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 Progress: The patient has been tolerating hyperbaric oxygen therapy well so far. Tolerance of hyperbaric oxygen therapy: Hyperbaric oxygen therapy was administered as per the facility's protocol. Hyperbaric oxygen therapy was well -tolerated, without complaints or complications. Upon emergence from the hyperbaric chamber, patient's vital signs remained stable. She was discharged in good condition. There was no evidence of otic barotrauma with today's session. 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 The patient's father at age of 79 with a history of cardiomyopathy. Smoking Status: Former smoker Tobacco Use: Non-smoker Physical Exam Vital Signs Temp Pulse Resp BP 97.7 F L 94 16 147/94 H 08/23/17 08:21 08/23/17 08:21 08/23/17 08:21 08/23/17 08:21 General: Alert, Oriented x3, Cooperative, No apparent distress HEENT: Atraumatic, Normocephalic, TM's Clear Lungs: Normal air movement Cardiovascular: Regular rate Psych/Mental Status: Normal Affect Assessment/Plan Active Problems Ulcer of right groin (Chronic) Soft tissue radionecrosis (Chronic) soft tissue radiation injury (Chronic) She tolerated hyperbaric oxygen therapy well, which will be continued as per the patient's medical plan.
[2017-08-24 08:15] VITALS: BP 137/99; BP 145/93; PULSE 72; PULSE 81; RESP 16; TEMP 36.1; TEMP 36.6
--- NOTE | 2017-08-24 08:18 | HBO.PN.PCM_ITS ---
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 Progress: The patient has been tolerating hyperbaric oxygen therapy well so far. Tolerance of hyperbaric oxygen therapy: Hyperbaric oxygen therapy was administered as per the facility's protocol. Hyperbaric oxygen therapy was well -tolerated, without complaints or complications. Upon emergence from the hyperbaric chamber, patient's vital signs remained stable. She was discharged in good condition. 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 The patient's father at age of 79 with a history of cardiomyopathy. Smoking Status: Former smoker Tobacco Use: Non-smoker Physical Exam Vital Signs Temp Pulse Resp BP 97.7 F L 94 16 147/94 H 08/23/17 08:21 08/23/17 08:21 08/23/17 08:21 08/23/17 08:21 General: Alert, Oriented x3, Cooperative, No apparent distress HEENT: Atraumatic, Normocephalic, TM's Clear Lungs: Normal air movement Cardiovascular: Regular rate Psych/Mental Status: Normal Affect Assessment/Plan Active Problems Ulcer of right groin (Chronic) Soft tissue radionecrosis (Chronic) soft tissue radiation injury (Chronic) She tolerated hyperbaric oxygen therapy well, which will be continued as per the patient's medical plan.
[2017-08-25 08:24] VITALS: BP 143/86; BP 148/64; PULSE 82; PULSE 84; RESP 16; TEMP 36.5; TEMP 36.6
--- NOTE | 2017-08-25 09:50 | HBO.PN.PCM_ITS ---
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 Progress: The patient has been tolerating hyperbaric oxygen therapy well so far. Tolerance of hyperbaric oxygen therapy: Hyperbaric oxygen therapy was administered as per the facility's protocol. Hyperbaric oxygen therapy was well -tolerated, without complaints or complications. Upon emergence from the hyperbaric chamber, patient's vital signs remained stable. She was discharged in good condition. 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 The patient's father at age of 79 with a history of cardiomyopathy. Smoking Status: Former smoker Tobacco Use: Non-smoker Physical Exam Vital Signs Temp Pulse Resp BP 97.7 F L 84 16 148/64 H 08/25/17 08:24 08/25/17 08:24 08/25/17 08:24 08/25/17 08:24 Assessment/Plan Active Problems Ulcer of right groin (Chronic) Soft tissue radionecrosis (Chronic) soft tissue radiation injury (Chronic) She tolerated hyperbaric oxygen therapy well, which will be continued as per the patient's medical plan.
[2017-08-28 08:19] VITALS: BP 137/85; BP 143/93; PULSE 79; PULSE 91; RESP 16; TEMP 36.4
--- NOTE | 2017-08-28 19:24 | PCM.HBO.PN ---
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 Progress: Treatment #24 hyperbaric oxygen therapy. Tolerance of hyperbaric oxygen therapy: Hyperbaric oxygen therapy was administered as per the facility's protocol. The patient tolerated hyperbaric oxygen therapy well, without complications or complaints. Upon emergence from the hyperbaric chamber, the patient's vital signs remained stable. The patient was discharged in good condition. 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 The patient's father at age of 79 with a history of cardiomyopathy. Smoking Status: Former smoker Tobacco Use: Non-smoker Physical Exam Vital Signs Temp Pulse Resp BP 97.5 F L 91 16 143/93 H 08/28/17 08:19 08/28/17 08:19 08/28/17 08:19 08/28/17 08:19 Assessment/Plan Active Problems Ulcer of right groin (Chronic) Soft tissue radionecrosis (Chronic) soft tissue radiation injury (Chronic)
[2017-08-29 08:18] VITALS: BP 136/76; BP 148/90; PULSE 80; PULSE 87; RESP 16; TEMP 36.5; TEMP 36.9
[2017-08-29 10:09] VITALS: BP 148/90; PULSE 87; RESP 16; TEMP 36.5; BMI 68.3
--- NOTE | 2017-08-29 10:26 | PCM.WC.HP ---
(1) soft tissue radiation injury Status: Chronic Current Visit: Yes (2) Soft tissue radionecrosis Status: Chronic Current Visit: Yes Code(s): L59.8 - Other specified disorders of the skin and subcutaneous tissue related to radiation; Y84.2 - Radiological procedure and radiotherapy as the cause of abnormal reaction of the patient, or of later complication, without mention of misadventure at the time of the procedure (3) Amputee, above knee Status: Chronic Current Visit: No Qualifiers: Laterality: right Code(s): Z89.619 - Acquired absence of unspecified leg above knee (4) Obesity (BMI 30.0-34.9) Status: Chronic Current Visit: No Code(s): E66.9 - Obesity, unspecified (5) Ulcer of right groin Status: Chronic Current Visit: Yes Qualifiers: Non-pressure ulcer stage: with fat layer exposed Code(s): L98.499 - Non-pressure chronic ulcer of skin of other sites with unspecified severity (6) GERD (gastroesophageal reflux disease) Status: Chronic Current Visit: No Code(s): K21.9 - Gastro-esophageal reflux disease without esophagitis (7) Hyperlipidemia Status: Chronic Current Visit: No Code(s): E78.5 - Hyperlipidemia, unspecified (8) History of melanoma Status: Chronic Current Visit: No Code(s): Z85.820 - Personal history of malignant melanoma of skin (9) History of uterine cancer Status: Chronic Current Visit: No Code(s): Z85.42 - Personal history of malignant neoplasm of other parts of uterus History of Present Illness Date of Service: 08/29/17 Chief Complaint: 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 The patient underwent excision of her melanoma with lymphadenectomy in the right groin. She also underwent lengthy radiation treatments at the [facility] in [place], [place]. Melanoma recurred, and the patient was subsequently treated with monoclonal antibodies in 1984. 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 Treatment included local ulcer care and hyperbaric oxygen therapy. She underwent a total of nearly 90 treatments of hyperbaric oxygen therapy. It is known that she tolerated the therapies well, and derived significant benefit. She relates no history of claustrophobia, or other complications related to the hyperbaric oxygen therapy treatments. She has no history of barotrauma to lungs, ears, etc. Her medical history has been reviewed, without any evidence of contraindications to hyperbaric oxygen therapy. Hyperbaric oxygen therapy has been reinitiated, and the patient is currently undergoing hyperbaric oxygen therapy in our facility on a daily basis. A recent wound culture was positive for Staphylococcus aureus, and the patient has completed a course of oral doxycycline, prescribed for 10 days. She is currently using collagenase Santyl topically to the wound in the right groin. She continues to undergo hyperbaric oxygen therapy on a weekday basis. 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 She is undergone excision of melanoma from the right calf, with lymphadenectomy of the right groin in the 1969's. She subsequently required surgeries of the right thigh related to osteomyelitis, MRSA infection, and radiation injury to the right femoral artery. Ultimately, the patient required right above-knee amputation, performed in 2000. She also has a remote history of open reduction and internal fixation of a right ankle fracture. Allergies/Adverse Reactions: Allergies No Known Allergies Allergy (Verified 06/20/17 09:22) Home Medications: Ambulatory Orders Medication Instructions Recorded Famotidine 20 mg PO 06/20/17 Pravastatin [Pravachol] 20 mg PO DAILY 06/20/17 - Family History Maternal - - The patient's mother is 98 years of age and relatively healthy. The patient's father at age of 79 with a history of cardiomyopathy. Smoking Status: Former smoker Tobacco Use: Non-smoker Review of Systems Constitutional: Denies: Chills, Fever, Weight Change Eyes: Denies: Pain, Vision Change HEENT: Denies: Difficulty Hearing, Difficulty Swallowing, Sinus Congestion Cardiovascular: Denies: Chest Pain, Palpitations Respiratory: Denies: Cough, Shortness of Breath Gastrointestinal: Denies: Diarrhea, Nausea, Vomiting Genitourinary: Denies: Dysuria, Hematuria Endocrine: Denies: Heat/ Cold Intolerance, Polydipsia, Polyuria Hematologic/ Lymphatic: Denies: Easy Bruising, Easy Bleeding - Physical Exam Vital Signs Temp Pulse Resp BP 97.7 F L 87 16 148/90 H 08/29/17 10:09 08/29/17 10:09 08/29/17 10:08/29/17 10:09 General: Alert, Oriented x3, Cooperative, No apparent distress, Well developed, Well nourished HEENT: Atraumatic, PERRLA, EOMI, Normocephalic Oral: Moist Mucosa Neck: No JVD Lungs: Normal air movement Abdomen: Non-Distended Extremities: No clubbing, No cyanosis, No edema, No Calf Tenderness, - - The right lower extremity demonstrates an above-knee amputation, which is well-healed. The patient has an ulceration in the right groin, related to soft tissue radiation necrosis. The dimensions of the right groin ulceration are documented elsewhere. The ulceration is highly fibrotic, with extensive nonviable and necrotic tissue present. However, there are increasing areas of pink, healthy granulation tissue. Wound Measurements and Assessment WC - Nurse 1 - General Ulcer Measurement Start: 08/10/17 08:57 Freq: Status: Active Protocol: Activity Type Activity Date Activity User E-Sign Co-Sign Detail Recorded Client Recorded Date Recorded By Document 08/29/17 10:09 HARDIK [id number] 08/29/17 10:15 HARDIK 08/29/17 10:09 Wound Center Nurse 1 [Ulcer Assessment] #5 R Groin -Combined with other wound No -Current Size (cm) - Length 3.3 -Current Size (cm) - Width 0.6 -Current Size (cm) - Depth 0.5 -Total Square Cm 1.98 -Photo Taken Yes -Epithelialization Small 1-33% -Tunneling No -Undermining/Tunneling No -Circular Undermining No -Exudate Amt Small (1-33%) -Exudate Type Serosanguineous -Wound Margin Flat & Intact -Granulation Amt Small (1-33%) -Granulation Quality [place] -Slough/Fibrin Yes -Necrosis Amt Large (67-100%) -Necrotic Tissue Type Adherent Slough -Structure Exposed N/A -Texture (Blanche-wound Skin Appearance) Assessed Friable Induration Scarring -Moisture (Blanche-wound Skin Appearance Assessed ) Dry/Scaly -Color (Blanche-wound Skin Appearance) Assessed -Temperature (Blanche-wound Skin No Abnormality Appearance) (Pt Warm) -Tenderness on Palpation (Blanche-wound No Skin Appearance) -Ulcer Cleansing Rinsed/ Irrigated with Saline -Foul Odor after Cleansing No -Anesthetic Used 4% Lidocaine Solution [Edema Assessment] -Lower Limb Edema Present NA Musculoskeletal: No Muscle Wasting Neurological: Cranial nerves II-XII grossly intact, Neuro grossly intact Psych/Mental Status: Normal Affect, Appropriate, Alert and oriented to time, place, person, mood and affect Debridement Note Post-Debridement Measurements/Treatment WC - Nurse 2 - General Ulcer CM Notes Start: 08/10/17 08:57 Freq: Status: Active Protocol: Activity Type Activity Date Activity User E-Sign Co-Sign Detail Recorded Client Recorded Date Recorded By Document 08/14/17 13:53 [id number] 08/14/17 14:03 Document 08/22/17 10:30 [id number] 08/22/17 10:38 08/14/17 08/22/17 13:53 10:30 Wound Center Nurse 2 #5 R Groin -Time 13:53 10:30 -Correct Patient Yes Yes -Correct Side, Site, Position Yes Yes -Correct Procedure Yes Yes -Procedure Performed Yes Yes -Type of Procedure Debridement Debridement -Clinical Debridement Subcutaneous Subcutaneous -Post Debridement Size (cm) - Length 2.9 3.3 -Post Debridement Size (cm) - Width 0.6 0.6 -Post Debridement Size (cm) - Depth 0.3 0.3 -Total Square Cm 1.74 1.98 -Wound/Ulcer Outcome Not Healed Not Healed -Ulcer Cleansing Rinsed/ Rinsed/ Irrigated with Irrigated with Saline Saline -Foul Odor after Cleansing No No -Bioengineered Tissue No No -Topical Lidocaine (%) 4 -Lidocaine (ml) 5 -Bleeding Controlled with NA NA -Treatment Response Procedure Procedure Tolerated Well Tolerated Well Pain Scale: 0-10 Numeric Is Patient Pain Free? Yes Yes Laterality: Right - Groin Type of Debridement: Excisional debridement Anesthesia Used: 5% Lidocaine Gel Depth: Down to and including healthy tissue, in the subcutaneous layer Percentage of wound debrided: 100 Instrument Used: 3mm curette Severity: Fat Layer Exposed Amount of bleeding with debridement: Mild Bleeding Controlled with: Compression and gauze Patient tolerated procedure well Assessment/Plan Active Problems Ulcer of right groin (Chronic) 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 In the 1970's, she was diagnosed with malignant melanoma of the right calf, with metastasis to lymph nodes in the right groin. She underwent excision of the melanoma with right groin lymphadenectomy. She was subsequently treated with a long series of radiation treatments to the right groin. As result, she has developed soft tissue radiation injury, and has previously been treated at our wound center in the past with a series of approximately 90 hyperbaric oxygen therapy treatments, in 2011. She presented at this time with recurrence of soft tissue radionecrosis in the right groin. Hyperbaric oxygen therapy treatments have been initiated, and the patient is undergoing hyperbaric oxygen therapy daily on weekdays. She is tolerating hyperbaric oxygen therapy well, without complaints or complications. Plan: We are to continue the use of collagenase Santyl topically on a daily basis. It is hoped that this will help with debridement of the fibrous and fibrotic material at the base of the patient's ulceration. The patient's right groin ulceration is located in an intertriginous zone, subjected to body heat and perspiration. Patient has been urged to keep the area clean and dry. The patient's recent laboratory studies have been reviewed, and it is noted that her white blood count was 14.7. Her recent culture results were positive for Staphylococcus aureus. She has completed a course of doxycycline 100 mg p.o. twice daily for 10 days. It has been sometime since the patient pleaded her last course of oral antibiotic. Because of the fibrotic nature of her right groin separation, and her lack of significant progress over the last several weeks, we have recultured the ulceration, for both aerobic and anaerobic bacteria. Culture results will be awaited. Hyperbaric oxygen therapy is indicated due to the patient's diagnosis of soft tissue radionecrosis, and is to continue. We will renew the order for an additional course of 20 HBO treatments, which is in accordance with the treatment protocol from the patient's past, which resulted in successful healing. Patient will return in 1 week for reevaluation. Influenza vaccine was not administered today. Patient is not a smoker. She stands 5 feet 7 inches tall. She weighs 198 pounds. Her BMI is 31, which places her in a class I category. Weight loss has been recommended. She is to collaborate with her primary care physician in this regard.
--- NOTE | 2017-08-29 10:34 | HP.PCM_ITS ---
(1) soft tissue radiation injury Status: Chronic Current Visit: Yes (2) Soft tissue radionecrosis Status: Chronic Current Visit: Yes Code(s): L59.8 - Other specified disorders of the skin and subcutaneous tissue related to radiation; Y84.2 - Radiological procedure and radiotherapy as the cause of abnormal reaction of the patient, or of later complication, without mention of misadventure at the time of the procedure (3) Amputee, above knee Status: Chronic Current Visit: No Qualifiers: Laterality: right Code(s): Z89.619 - Acquired absence of unspecified leg above knee (4) Obesity (BMI 30.0-34.9) Status: Chronic Current Visit: No Code(s): E66.9 - Obesity, unspecified (5) Ulcer of right groin Status: Chronic Current Visit: Yes Qualifiers: Non-pressure ulcer stage: with fat layer exposed Code(s): L98.499 - Non-pressure chronic ulcer of skin of other sites with unspecified severity (6) GERD (gastroesophageal reflux disease) Status: Chronic Current Visit: No Code(s): K21.9 - Gastro-esophageal reflux disease without esophagitis (7) Hyperlipidemia Status: Chronic Current Visit: No Code(s): E78.5 - Hyperlipidemia, unspecified (8) History of melanoma Status: Chronic Current Visit: No Code(s): Z85.820 - Personal history of malignant melanoma of skin (9) History of uterine cancer Status: Chronic Current Visit: No Code(s): Z85.42 - Personal history of malignant neoplasm of other parts of uterus History of Present Illness Date of Service: 08/29/17 Chief Complaint: 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 The patient underwent excision of her melanoma with lymphadenectomy in the right groin. She also underwent lengthy radiation treatments at the [facility] in [place], [place]. Melanoma recurred, and the patient was subsequently treated with monoclonal antibodies in 1984. 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 Treatment included local ulcer care and hyperbaric oxygen therapy. She underwent a total of nearly 90 treatments of hyperbaric oxygen therapy. It is known that she tolerated the therapies well, and derived significant benefit. She relates no history of claustrophobia, or other complications related to the hyperbaric oxygen therapy treatments. She has no history of barotrauma to lungs , ears, etc. Her medical history has been reviewed, without any evidence of contraindications to hyperbaric oxygen therapy. Hyperbaric oxygen therapy has been reinitiated, and the patient is currently undergoing hyperbaric oxygen therapy in our facility on a daily basis. A recent wound culture was positive for Staphylococcus aureus, and the patient has completed a course of oral doxycycline, prescribed for 10 days. She is currently using collagenase Santyl topically to the wound in the right groin. She continues to undergo hyperbaric oxygen therapy on a weekday basis. 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 She is undergone excision of melanoma from the right calf, with lymphadenectomy of the right groin in the 1969's. She subsequently required surgeries of the right thigh related to osteomyelitis, MRSA infection, and radiation injury to the right femoral artery. Ultimately, the patient required right above-knee amputation, performed in 2000. She also has a remote history of open reduction and internal fixation of a right ankle fracture. Allergies/Adverse Reactions: Allergies No Known Allergies Allergy (Verified 06/20/17 09:22) Home Medications: Ambulatory Orders Medication Instructions Recorded Famotidine 20 mg PO 06/20/17 Pravastatin [Pravachol] 20 mg PO DAILY 06/20/17 - Family History Maternal - - The patient's mother is 98 years of age and relatively healthy. The patient 's father at age of 79 with a history of cardiomyopathy. Smoking Status: Former smoker Tobacco Use: Non-smoker Review of Systems Constitutional: Denies: Chills, Fever, Weight Change Eyes: Denies: Pain, Vision Change HEENT: Denies: Difficulty Hearing, Difficulty Swallowing, Sinus Congestion Cardiovascular: Denies: Chest Pain, Palpitations Respiratory: Denies: Cough, Shortness of Breath Gastrointestinal: Denies: Diarrhea, Nausea, Vomiting Genitourinary: Denies: Dysuria, Hematuria Endocrine: Denies: Heat/ Cold Intolerance, Polydipsia, Polyuria Hematologic/ Lymphatic: Denies: Easy Bruising, Easy Bleeding - Physical Exam Vital Signs Temp Pulse Resp BP 97.7 F L 87 16 148/90 H 08/29/17 10:09 08/29/17 10:09 08/29/17 10:08/29/17 10:09 General: Alert, Oriented x3, Cooperative, No apparent distress, Well developed, Well nourished HEENT: Atraumatic, PERRLA, EOMI, Normocephalic Oral: Moist Mucosa Neck: No JVD Lungs: Normal air movement Abdomen: Non-Distended Extremities: No clubbing, No cyanosis, No edema, No Calf Tenderness, - - The right lower extremity demonstrates an above-knee amputation, which is well- healed. The patient has an ulceration in the right groin, related to soft tissue radiation necrosis. The dimensions of the right groin ulceration are documented elsewhere. The ulceration is highly fibrotic, with extensive nonviable and necrotic tissue present. However, there are increasing areas of pink, healthy granulation tissue. Wound Measurements and Assessment WC - Nurse 1 - General Ulcer Measurement Start: 08/10/17 08:57 Freq: Status: Active Protocol: Activity Type Activity Date Activity User E-Sign Co-Sign Detail Recorded Client Recorded Date Recorded By Document 08/29/17 10:09 HARDIK [id number] 08/29/17 10:15 HARDIK 08/29/17 10:09 Wound Center Nurse 1 [Ulcer Assessment] #5 R Groin -Combined with other wound No -Current Size (cm) - Length 3.3 -Current Size (cm) - Width 0.6 -Current Size (cm) - Depth 0.5 -Total Square Cm 1.98 -Photo Taken Yes -Epithelialization Small 1-33% -Tunneling No -Undermining/Tunneling No -Circular Undermining No -Exudate Amt Small (1-33%) -Exudate Type Serosanguineous -Wound Margin Flat & Intact -Granulation Amt Small (1-33%) -Granulation Quality [place] -Slough/Fibrin Yes -Necrosis Amt Large (67-100%) -Necrotic Tissue Type Adherent Slough -Structure Exposed N/A -Texture (Blanche-wound Skin Appearance) Assessed Friable Induration Scarring -Moisture (Blanche-wound Skin Appearance Assessed ) Dry/Scaly -Color (Blanche-wound Skin Appearance) Assessed -Temperature (Blanche-wound Skin No Abnormality Appearance) (Pt Warm) -Tenderness on Palpation (Blanche-wound No Skin Appearance) -Ulcer Cleansing Rinsed/ Irrigated with Saline -Foul Odor after Cleansing No -Anesthetic Used 4% Lidocaine Solution [Edema Assessment] -Lower Limb Edema Present NA Musculoskeletal: No Muscle Wasting Neurological: Cranial nerves II-XII grossly intact, Neuro grossly intact Psych/Mental Status: Normal Affect, Appropriate, Alert and oriented to time, place, person, mood and affect Debridement Note Post-Debridement Measurements/Treatment WC - Nurse 2 - General Ulcer CM Notes Start: 08/10/17 08:57 Freq: Status: Active Protocol: Activity Type Activity Date Activity User E-Sign Co-Sign Detail Recorded Client Recorded Date Recorded By Document 08/14/17 13:53 [id number] 08/14/17 14:03 Document 08/22/17 10:30 [id number] 08/22/17 10:38 08/14/17 08/22/17 13:53 10:30 Wound Center Nurse 2 #5 R Groin -Time 13:53 10:30 -Correct Patient Yes Yes -Correct Side, Site, Position Yes Yes -Correct Procedure Yes Yes -Procedure Performed Yes Yes -Type of Procedure Debridement Debridement -Clinical Debridement Subcutaneous Subcutaneous -Post Debridement Size (cm) - Length 2.9 3.3 -Post Debridement Size (cm) - Width 0.6 0.6 -Post Debridement Size (cm) - Depth 0.3 0.3 -Total Square Cm 1.74 1.98 -Wound/Ulcer Outcome Not Healed Not Healed -Ulcer Cleansing Rinsed/ Rinsed/ Irrigated with Irrigated with Saline Saline -Foul Odor after Cleansing No No -Bioengineered Tissue No No -Topical Lidocaine (%) 4 -Lidocaine (ml) 5 -Bleeding Controlled with NA NA -Treatment Response Procedure Procedure Tolerated Well Tolerated Well Pain Scale: 0-10 Numeric Is Patient Pain Free? Yes Yes Laterality: Right - Groin Type of Debridement: Excisional debridement Anesthesia Used: 5% Lidocaine Gel Depth: Down to and including healthy tissue, in the subcutaneous layer Percentage of wound debrided: 100 Instrument Used: 3mm curette Severity: Fat Layer Exposed Amount of bleeding with debridement: Mild Bleeding Controlled with: Compression and gauze Patient tolerated procedure well Assessment/Plan Active Problems Ulcer of right groin (Chronic) 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 In the 1970's, she was diagnosed with malignant melanoma of the right calf, with metastasis to lymph nodes in the right groin. She underwent excision of the melanoma with right groin lymphadenectomy. She was subsequently treated with a long series of radiation treatments to the right groin. As result, she has developed soft tissue radiation injury, and has previously been treated at our wound center in the past with a series of approximately 90 hyperbaric oxygen therapy treatments , in 2011. She presented at this time with recurrence of soft tissue radionecrosis in the right groin. Hyperbaric oxygen therapy treatments have been initiated, and the patient is undergoing hyperbaric oxygen therapy daily on weekdays. She is tolerating hyperbaric oxygen therapy well, without complaints or complications. Plan: We are to continue the use of collagenase Santyl topically on a daily basis. It is hoped that this will help with debridement of the fibrous and fibrotic material at the base of the patient's ulceration. The patient's right groin ulceration is located in an intertriginous zone, subjected to body heat and perspiration. Patient has been urged to keep the area clean and dry. The patient's recent laboratory studies have been reviewed, and it is noted that her white blood count was 14.7. Her recent culture results were positive for Staphylococcus aureus. She has completed a course of doxycycline 100 mg p.o. twice daily for 10 days. It has been sometime since the patient pleaded her last course of oral antibiotic. Because of the fibrotic nature of her right groin separation, and her lack of significant progress over the last several weeks, we have recultured the ulceration, for both aerobic and anaerobic bacteria. Culture results will be awaited. Hyperbaric oxygen therapy is indicated due to the patient's diagnosis of soft tissue radionecrosis, and is to continue. We will renew the order for an additional course of 20 HBO treatments, which is in accordance with the treatment protocol from the patient' s past, which resulted in successful healing. Patient will return in 1 week for reevaluation. Influenza vaccine was not administered today. Patient is not a smoker. She stands 5 feet 7 inches tall. She weighs 198 pounds. Her BMI is 31, which places her in a class I category. Weight loss has been recommended. She is to collaborate with her primary care physician in this regard.
--- NOTE | 2017-08-29 12:00 | PCM.HBO.PN ---
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 Progress: Treatment #25 hyperbaric oxygen therapy. Tolerance of hyperbaric oxygen therapy: Hyperbaric oxygen therapy was administered as per the facility's protocol. The patient tolerated hyperbaric oxygen therapy well, without complications or complaints. Upon emergence from the hyperbaric chamber, the patient's vital signs remained stable. The patient was discharged in good condition. 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 The patient's father at age of 79 with a history of cardiomyopathy. 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
--- NOTE | 2017-08-30 09:09 | PCM.HBO.PN ---
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 Progress: The patient has tolerated Hyperbaric Oxygen Therapy well so far. Tolerance of hyperbaric oxygen therapy: Hyperbaric oxygen therapy was administered as per the facility's protocol. The patient tolerated hyperbaric oxygen therapy well, without complications or complaints. Upon emergence from the hyperbaric chamber, the patient's vital signs remained stable. The patient was discharged in good condition. 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 The patient's father at age of 79 with a history of cardiomyopathy. 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
[2017-08-30 09:13] VITALS: BP 106/84; BP 185/96; PULSE 83; PULSE 97; RESP 16; TEMP 36.2; TEMP 36.6
[2017-08-31 09:16] VITALS: BP 127/95; BP 141/93; PULSE 89; PULSE 91; RESP 16; TEMP 36.6; TEMP 36.8
--- NOTE | 2017-08-31 09:19 | PCM.HBO.PN ---
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 Progress: The patient has tolerated Hyperbaric Oxygen Therapy well so far. Tolerance of hyperbaric oxygen therapy: Hyperbaric oxygen therapy was administered as per the facility's protocol. The patient tolerated hyperbaric oxygen therapy well, without complications or complaints. Upon emergence from the hyperbaric chamber, the patient's vital signs remained stable. The patient was discharged in good condition. 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 The patient's father at age of 79 with a history of cardiomyopathy. 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
[2017-09-01 08:26] VITALS: BP 144/95; BP 153/93; PULSE 77; PULSE 92; RESP 16; TEMP 36.4; TEMP 36.5
--- NOTE | 2017-09-01 09:43 | PCM.HBO.PN ---
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 Progress: The patient has tolerated Hyperbaric Oxygen Therapy well so far. Tolerance of hyperbaric oxygen therapy: Hyperbaric oxygen therapy was administered as per the facility's protocol. The patient tolerated hyperbaric oxygen therapy well, without complications or complaints. Upon emergence from the hyperbaric chamber, the patient's vital signs remained stable. The patient was discharged in good condition. 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 The patient's father at age of 79 with a history of cardiomyopathy. 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
[2017-09-04 08:21] VITALS: BP 104/75; BP 129/99; PULSE 67; PULSE 87; RESP 16; TEMP 36.4; TEMP 36.6
[2017-09-05 08:15] VITALS: BP 135/88; BP 163/88; PULSE 57; PULSE 81; RESP 16; TEMP 36.1; TEMP 36.6
[2017-09-05 10:03] VITALS: BP 135/88; PULSE 57; RESP 16; TEMP 36.6; BMI 68.3
--- NOTE | 2017-09-05 11:08 | PCM.WC.HP ---
(1) soft tissue radiation injury Status: Chronic Current Visit: Yes (2) Soft tissue radionecrosis Status: Chronic Current Visit: Yes Code(s): L59.8 - Other specified disorders of the skin and subcutaneous tissue related to radiation; Y84.2 - Radiological procedure and radiotherapy as the cause of abnormal reaction of the patient, or of later complication, without mention of misadventure at the time of the procedure (3) Amputee, above knee Status: Chronic Current Visit: No Qualifiers: Laterality: right Code(s): Z89.619 - Acquired absence of unspecified leg above knee (4) Obesity (BMI 30.0-34.9) Status: Chronic Current Visit: No Code(s): E66.9 - Obesity, unspecified (5) Ulcer of right groin Status: Chronic Current Visit: Yes Qualifiers: Non-pressure ulcer stage: with fat layer exposed Code(s): L98.499 - Non-pressure chronic ulcer of skin of other sites with unspecified severity (6) GERD (gastroesophageal reflux disease) Status: Chronic Current Visit: No Code(s): K21.9 - Gastro-esophageal reflux disease without esophagitis (7) Hyperlipidemia Status: Chronic Current Visit: No Code(s): E78.5 - Hyperlipidemia, unspecified (8) History of melanoma Status: Chronic Current Visit: No Code(s): Z85.820 - Personal history of malignant melanoma of skin (9) History of uterine cancer Status: Chronic Current Visit: No Code(s): Z85.42 - Personal history of malignant neoplasm of other parts of uterus History of Present Illness Date of Service: 09/05/17 Chief Complaint: 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 The patient underwent excision of her melanoma with lymphadenectomy in the right groin. She also underwent lengthy radiation treatments at the [facility] in [place], [place]. Melanoma recurred, and the patient was subsequently treated with monoclonal antibodies in 1984. 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 Treatment included local ulcer care and hyperbaric oxygen therapy. She underwent a total of nearly 90 treatments of hyperbaric oxygen therapy. It is known that she tolerated the therapies well, and derived significant benefit. She relates no history of claustrophobia, or other complications related to the hyperbaric oxygen therapy treatments. She has no history of barotrauma to lungs, ears, etc. Her medical history has been reviewed, without any evidence of contraindications to hyperbaric oxygen therapy. Hyperbaric oxygen therapy has been reinitiated, and the patient is currently undergoing hyperbaric oxygen therapy in our facility on a daily basis. A recent wound culture was positive for Staphylococcus aureus, and Levaquin 500 mg p.o. daily has been prescribed for 10 days. The patient has started the course of antibiotics only 48 hours ago. She is currently using collagenase Santyl topically to the wound in the right groin. She continues to undergo hyperbaric oxygen therapy on a weekday basis. 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 She is undergone excision of melanoma from the right calf, with lymphadenectomy of the right groin in the 1969's. She subsequently required surgeries of the right thigh related to osteomyelitis, MRSA infection, and radiation injury to the right femoral artery. Ultimately, the patient required right above-knee amputation, performed in 2000. She also has a remote history of open reduction and internal fixation of a right ankle fracture. Allergies/Adverse Reactions: Allergies No Known Allergies Allergy (Verified 06/20/17 09:22) Home Medications: Ambulatory Orders Medication Instructions Recorded Famotidine 20 mg PO 06/20/17 Pravastatin [Pravachol] 20 mg PO DAILY 06/20/17 - Family History Maternal - - The patient's mother is 98 years of age and relatively healthy. The patient's father at age of 79 with a history of cardiomyopathy. Smoking Status: Former smoker Tobacco Use: Non-smoker Review of Systems Constitutional: Denies: Chills, Fever, Weight Change Eyes: Denies: Pain, Vision Change HEENT: Denies: Difficulty Hearing, Difficulty Swallowing, Sinus Congestion Cardiovascular: Denies: Chest Pain, Palpitations Respiratory: Denies: Cough, Shortness of Breath Gastrointestinal: Denies: Diarrhea, Nausea, Vomiting Genitourinary: Denies: Dysuria, Hematuria Endocrine: Denies: Heat/ Cold Intolerance, Polydipsia, Polyuria Hematologic/ Lymphatic: Denies: Easy Bruising, Easy Bleeding - Physical Exam Vital Signs Temp Pulse Resp BP 97.8 F 57 L 16 135/88 H 09/05/17 10:03 09/05/17 10:03 09/05/17 10:03 09/05/17 10:03 General: Alert, Oriented x3, Cooperative, No apparent distress, Well developed, Well nourished HEENT: Atraumatic, PERRLA, EOMI, Normocephalic Oral: Moist Mucosa Neck: No JVD Lungs: Normal air movement Abdomen: Non-Distended Extremities: No clubbing, No cyanosis, No edema, No Calf Tenderness, - - A right above-knee amputation is noted. The wound in the right groin is slightly larger in size. Dimensions are documented elsewhere. There is a slight amount of surrounding erythema, suggesting the development of cellulitis. The base of the ulceration contains a large amount of nonviable and fibrotic tissue, though there is increasing evidence of healthy granulation tissue in a small portion of the ulceration. Wound Measurements and Assessment WC - Nurse 1 - General Ulcer Measurement Start: 08/10/17 08:57 Freq: Status: Active Protocol: Activity Type Activity Date Activity User E-Sign Co-Sign Detail Recorded Client Recorded Date Recorded By Document 09/05/17 10:03 DL [id number] 09/05/17 10:15 DL 09/05/17 10:03 Wound Center Nurse 1 [Ulcer Assessment] #5 R Groin -Current Size (cm) - Length 3.4 -Current Size (cm) - Width 0.9 -Current Size (cm) - Depth 0.5 -Total Square Cm 3.06 -Photo Taken Yes -Exudate Amt Small (1-33%) -Exudate Type Serosanguineous -Wound Margin Distinct, Outline Attached -Granulation Amt None Present (0 %) -Necrosis Amt Large (67-100%) -Necrotic Tissue Type Adherent Slough -Structure Exposed N/A -Texture (Blanche-wound Skin Appearance) Scarring -Moisture (Blanche-wound Skin Appearance No Abnormality ) -Color (Blanche-wound Skin Appearance) Erythema -Temperature (Blanche-wound Skin No Abnormality Appearance) (Pt Warm) -Ulcer Cleansing Rinsed/ Irrigated with Saline -Foul Odor after Cleansing No -Anesthetic Used 4% Lidocaine Solution - Nurse 2 - General Ulcer CM Notes Start: 08/10/17 08:57 Freq: Status: Active Protocol: Activity Type Activity Date Activity User E-Sign Co-Sign Detail Recorded Client Recorded Date Recorded By Document 09/05/17 10:36 [id number] 09/05/17 10:47 JS 09/05/17 10:36 Wound Center Nurse 2 [Procedure/Treatment] -Time 10:36 -Correct Patient Yes -Correct Side, Site, Position Yes -Correct Procedure Yes -Procedure Performed Yes -Type of Procedure Debridement -Clinical Debridement Subcutaneous -Post Debridement Size (cm) - Length 3.4 -Post Debridement Size (cm) - Width 1.0 -Post Debridement Size (cm) - Depth 0.5 -Total Square Cm 3.40 -Wound/Ulcer Outcome Not Healed -Ulcer Cleansing Rinsed/ Irrigated with Saline -Foul Odor after Cleansing No -Bioengineered Tissue No -Topical Lidocaine (%) 4 -Lidocaine (ml) 5 -Bleeding Controlled with NA -Treatment Response Procedure Tolerated Well [See Physician Procedure note for Specifics] Pain Scale: 0-10 Numeric [Pain] -Is Patient Pain Free? Yes Neurological: Cranial nerves II-XII grossly intact, Neuro grossly intact Psych/Mental Status: Normal Affect, Appropriate, Alert and oriented to time, place, person, mood and affect Debridement Note Post-Debridement Measurements/Treatment - Nurse 2 - General Ulcer CM Notes Start: 08/10/17 08:57 Freq: Status: Active Protocol: Activity Type Activity Date Activity User E-Sign Co-Sign Detail Recorded Client Recorded Date Recorded By Document 08/14/17 13:53 JS [id number] 08/14/17 14:03 JS Document 08/22/17 10:30 [id number] 08/22/17 10:38 JS Document 08/29/17 10:30 [id number] 08/29/17 10:31 Document 09/05/17 10:36 [id number] 09/05/17 10:47 08/14/17 08/22/17 08/29/17 13:53 10:30 10:30 Wound Center Nurse 2 #5 R Groin -Time 13:53 10:30 10:30 -Correct Patient Yes Yes Yes -Correct Side, Site, Position Yes Yes Yes -Correct Procedure Yes Yes Yes -Procedure Performed Yes Yes Yes -Type of Procedure Debridement Debridement Debridement -Clinical Debridement Subcutaneous Subcutaneous Subcutaneous -Post Debridement Size (cm) - Length 2.9 3.3 3.3 -Post Debridement Size (cm) - Width 0.6 0.6 0.5 -Post Debridement Size (cm) - Depth 0.3 0.3 0.3 -Total Square Cm 1.74 1.98 1.65 -Wound/Ulcer Outcome Not Healed Not Healed Not Healed -Ulcer Cleansing Rinsed/ Rinsed/ Rinsed/ Irrigated with Irrigated with Irrigated with Saline Saline Saline -Foul Odor after Cleansing No No No -Bioengineered Tissue No No No -Topical Lidocaine (%) 4 4 -Lidocaine (ml) 5 5 -Bleeding Controlled with NA NA NA -Treatment Response Procedure Procedure Procedure Tolerated Well Tolerated Well Tolerated Well Pain Scale: 0-10 Numeric Is Patient Pain Free? Yes Yes Yes 09/05/17 10:36 Wound Center Nurse 2 #5 R Groin -Time 10:36 -Correct Patient Yes -Correct Side, Site, Position Yes -Correct Procedure Yes -Procedure Performed Yes -Type of Procedure Debridement -Clinical Debridement Subcutaneous -Post Debridement Size (cm) - Length 3.4 -Post Debridement Size (cm) - Width 1.0 -Post Debridement Size (cm) - Depth 0.5 -Total Square Cm 3.40 -Wound/Ulcer Outcome Not Healed -Ulcer Cleansing Rinsed/ Irrigated with Saline -Foul Odor after Cleansing No -Bioengineered Tissue No -Topical Lidocaine (%) 4 -Lidocaine (ml) 5 -Bleeding Controlled with NA -Treatment Response Procedure Tolerated Well Pain Scale: 0-10 Numeric Is Patient Pain Free? 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 In the 1970's, she was diagnosed with malignant melanoma of the right calf, with metastasis to lymph nodes in the right groin. She underwent excision of the melanoma with right groin lymphadenectomy. She was subsequently treated with a long series of radiation treatments to the right groin. As result, she has developed soft tissue radiation injury, and has previously been treated at our wound center in the past with a series of approximately 90 hyperbaric oxygen therapy treatments, in 2011. She presented at this time with recurrence of soft tissue radionecrosis in the right groin. Hyperbaric oxygen therapy treatments have been initiated, and the patient is undergoing hyperbaric oxygen therapy daily on weekdays. She is tolerating hyperbaric oxygen therapy well, without complaints or complications. Plan: We are to continue the use of collagenase Santyl topically on a daily basis. It is hoped that this will help with debridement of the fibrous and fibrotic material at the base of the patient's ulceration. The patient's right groin ulceration is located in an intertriginous zone, subjected to body heat and perspiration. Patient has been urged to keep the area clean and dry. The patient's recent laboratory studies have been reviewed, and it is noted that her white blood count was 14.7. Her recent culture results were positive for Staphylococcus aureus. A prescription for Levaquin 500 milligrams daily has been initiated for a total of 10 days. Hyperbaric oxygen therapy is indicated due to the patient's diagnosis of soft tissue radionecrosis, and is to continue. We have renewed the order for an additional course of 20 HBO treatments, which is in accordance with the treatment protocol from the patient's past, which resulted in successful healing. Patient will return in 1 week for reevaluation. Influenza vaccine was not administered today. Patient is not a smoker. She stands 5 feet 7 inches tall. She weighs 198 pounds. Her BMI is 31, which places her in a class I category. Weight loss has been recommended. She is to collaborate with her primary care physician in this regard.
--- NOTE | 2017-09-05 11:15 | HP.PCM_ITS ---
(1) soft tissue radiation injury Status: Chronic Current Visit: Yes (2) Soft tissue radionecrosis Status: Chronic Current Visit: Yes Code(s): L59.8 - Other specified disorders of the skin and subcutaneous tissue related to radiation; Y84.2 - Radiological procedure and radiotherapy as the cause of abnormal reaction of the patient, or of later complication, without mention of misadventure at the time of the procedure (3) Amputee, above knee Status: Chronic Current Visit: No Qualifiers: Laterality: right Code(s): Z89.619 - Acquired absence of unspecified leg above knee (4) Obesity (BMI 30.0-34.9) Status: Chronic Current Visit: No Code(s): E66.9 - Obesity, unspecified (5) Ulcer of right groin Status: Chronic Current Visit: Yes Qualifiers: Non-pressure ulcer stage: with fat layer exposed Code(s): L98.499 - Non-pressure chronic ulcer of skin of other sites with unspecified severity (6) GERD (gastroesophageal reflux disease) Status: Chronic Current Visit: No Code(s): K21.9 - Gastro-esophageal reflux disease without esophagitis (7) Hyperlipidemia Status: Chronic Current Visit: No Code(s): E78.5 - Hyperlipidemia, unspecified (8) History of melanoma Status: Chronic Current Visit: No Code(s): Z85.820 - Personal history of malignant melanoma of skin (9) History of uterine cancer Status: Chronic Current Visit: No Code(s): Z85.42 - Personal history of malignant neoplasm of other parts of uterus History of Present Illness Date of Service: 09/05/17 Chief Complaint: 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 The patient underwent excision of her melanoma with lymphadenectomy in the right groin. She also underwent lengthy radiation treatments at the [facility] in [place], [place]. Melanoma recurred, and the patient was subsequently treated with monoclonal antibodies in 1984. 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 Treatment included local ulcer care and hyperbaric oxygen therapy. She underwent a total of nearly 90 treatments of hyperbaric oxygen therapy. It is known that she tolerated the therapies well, and derived significant benefit. She relates no history of claustrophobia, or other complications related to the hyperbaric oxygen therapy treatments. She has no history of barotrauma to lungs , ears, etc. Her medical history has been reviewed, without any evidence of contraindications to hyperbaric oxygen therapy. Hyperbaric oxygen therapy has been reinitiated, and the patient is currently undergoing hyperbaric oxygen therapy in our facility on a daily basis. A recent wound culture was positive for Staphylococcus aureus, and Levaquin 500 mg p.o. daily has been prescribed for 10 days. The patient has started the course of antibiotics only 48 hours ago. She is currently using collagenase Santyl topically to the wound in the right groin. She continues to undergo hyperbaric oxygen therapy on a weekday basis. 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 She is undergone excision of melanoma from the right calf, with lymphadenectomy of the right groin in the 1969's. She subsequently required surgeries of the right thigh related to osteomyelitis, MRSA infection, and radiation injury to the right femoral artery. Ultimately, the patient required right above-knee amputation, performed in 2000. She also has a remote history of open reduction and internal fixation of a right ankle fracture. Allergies/Adverse Reactions: Allergies No Known Allergies Allergy (Verified 06/20/17 09:22) Home Medications: Ambulatory Orders Medication Instructions Recorded Famotidine 20 mg PO 06/20/17 Pravastatin [Pravachol] 20 mg PO DAILY 06/20/17 - Family History Maternal - - The patient's mother is 98 years of age and relatively healthy. The patient 's father at age of 79 with a history of cardiomyopathy. Smoking Status: Former smoker Tobacco Use: Non-smoker Review of Systems Constitutional: Denies: Chills, Fever, Weight Change Eyes: Denies: Pain, Vision Change HEENT: Denies: Difficulty Hearing, Difficulty Swallowing, Sinus Congestion Cardiovascular: Denies: Chest Pain, Palpitations Respiratory: Denies: Cough, Shortness of Breath Gastrointestinal: Denies: Diarrhea, Nausea, Vomiting Genitourinary: Denies: Dysuria, Hematuria Endocrine: Denies: Heat/ Cold Intolerance, Polydipsia, Polyuria Hematologic/ Lymphatic: Denies: Easy Bruising, Easy Bleeding - Physical Exam Vital Signs Temp Pulse Resp BP 97.8 F 57 L 16 135/88 H 09/05/17 10:03 09/05/17 10:03 09/05/17 10:03 09/05/17 10:03 General: Alert, Oriented x3, Cooperative, No apparent distress, Well developed, Well nourished HEENT: Atraumatic, PERRLA, EOMI, Normocephalic Oral: Moist Mucosa Neck: No JVD Lungs: Normal air movement Abdomen: Non-Distended Extremities: No clubbing, No cyanosis, No edema, No Calf Tenderness, - - A right above-knee amputation is noted. The wound in the right groin is slightly larger in size. Dimensions are documented elsewhere. There is a slight amount of surrounding erythema, suggesting the development of cellulitis. The base of the ulceration contains a large amount of nonviable and fibrotic tissue, though there is increasing evidence of healthy granulation tissue in a small portion of the ulceration. Wound Measurements and Assessment WC - Nurse 1 - General Ulcer Measurement Start: 08/10/17 08:57 Freq: Status: Active Protocol: Activity Type Activity Date Activity User E-Sign Co-Sign Detail Recorded Client Recorded Date Recorded By Document 09/05/17 10:03 DL [id number] 09/05/17 10:15 DL 09/05/17 10:03 Wound Center Nurse 1 [Ulcer Assessment] #5 R Groin -Current Size (cm) - Length 3.4 -Current Size (cm) - Width 0.9 -Current Size (cm) - Depth 0.5 -Total Square Cm 3.06 -Photo Taken Yes -Exudate Amt Small (1-33%) -Exudate Type Serosanguineous -Wound Margin Distinct, Outline Attached -Granulation Amt None Present (0 %) -Necrosis Amt Large (67-100%) -Necrotic Tissue Type Adherent Slough -Structure Exposed N/A -Texture (Blanche-wound Skin Appearance) Scarring -Moisture (Blanche-wound Skin Appearance No Abnormality ) -Color (Blanche-wound Skin Appearance) Erythema -Temperature (Blanche-wound Skin No Abnormality Appearance) (Pt Warm) -Ulcer Cleansing Rinsed/ Irrigated with Saline -Foul Odor after Cleansing No -Anesthetic Used 4% Lidocaine Solution - Nurse 2 - General Ulcer CM Notes Start: 08/10/17 08:57 Freq: Status: Active Protocol: Activity Type Activity Date Activity User E-Sign Co-Sign Detail Recorded Client Recorded Date Recorded By Document 09/05/17 10:36 [id number] 09/05/17 10:47 JS 09/05/17 10:36 Wound Center Nurse 2 [Procedure/Treatment] -Time 10:36 -Correct Patient Yes -Correct Side, Site, Position Yes -Correct Procedure Yes -Procedure Performed Yes -Type of Procedure Debridement -Clinical Debridement Subcutaneous -Post Debridement Size (cm) - Length 3.4 -Post Debridement Size (cm) - Width 1.0 -Post Debridement Size (cm) - Depth 0.5 -Total Square Cm 3.40 -Wound/Ulcer Outcome Not Healed -Ulcer Cleansing Rinsed/ Irrigated with Saline -Foul Odor after Cleansing No -Bioengineered Tissue No -Topical Lidocaine (%) 4 -Lidocaine (ml) 5 -Bleeding Controlled with NA -Treatment Response Procedure Tolerated Well [See Physician Procedure note for Specifics] Pain Scale: 0-10 Numeric [Pain] -Is Patient Pain Free? Yes Neurological: Cranial nerves II-XII grossly intact, Neuro grossly intact Psych/Mental Status: Normal Affect, Appropriate, Alert and oriented to time, place, person, mood and affect Debridement Note Post-Debridement Measurements/Treatment - Nurse 2 - General Ulcer CM Notes Start: 08/10/17 08:57 Freq: Status: Active Protocol: Activity Type Activity Date Activity User E-Sign Co-Sign Detail Recorded Client Recorded Date Recorded By Document 08/14/17 13:53 JS [id number] 08/14/17 14:03 JS Document 08/22/17 10:30 [id number] 08/22/17 10:38 JS Document 08/29/17 10:30 [id number] 08/29/17 10:31 Document 09/05/17 10:36 [id number] 09/05/17 10:47 08/14/17 08/22/17 08/29/17 13:53 10:30 10:30 Wound Center Nurse 2 #5 R Groin -Time 13:53 10:30 10:30 -Correct Patient Yes Yes Yes -Correct Side, Site, Position Yes Yes Yes -Correct Procedure Yes Yes Yes -Procedure Performed Yes Yes Yes -Type of Procedure Debridement Debridement Debridement -Clinical Debridement Subcutaneous Subcutaneous Subcutaneous -Post Debridement Size (cm) - Length 2.9 3.3 3.3 -Post Debridement Size (cm) - Width 0.6 0.6 0.5 -Post Debridement Size (cm) - Depth 0.3 0.3 0.3 -Total Square Cm 1.74 1.98 1.65 -Wound/Ulcer Outcome Not Healed Not Healed Not Healed -Ulcer Cleansing Rinsed/ Rinsed/ Rinsed/ Irrigated with Irrigated with Irrigated with Saline Saline Saline -Foul Odor after Cleansing No No No -Bioengineered Tissue No No No -Topical Lidocaine (%) 4 4 -Lidocaine (ml) 5 5 -Bleeding Controlled with NA NA NA -Treatment Response Procedure Procedure Procedure Tolerated Well Tolerated Well Tolerated Well Pain Scale: 0-10 Numeric Is Patient Pain Free? Yes Yes Yes 09/05/17 10:36 Wound Center Nurse 2 #5 R Groin -Time 10:36 -Correct Patient Yes -Correct Side, Site, Position Yes -Correct Procedure Yes -Procedure Performed Yes -Type of Procedure Debridement -Clinical Debridement Subcutaneous -Post Debridement Size (cm) - Length 3.4 -Post Debridement Size (cm) - Width 1.0 -Post Debridement Size (cm) - Depth 0.5 -Total Square Cm 3.40 -Wound/Ulcer Outcome Not Healed -Ulcer Cleansing Rinsed/ Irrigated with Saline -Foul Odor after Cleansing No -Bioengineered Tissue No -Topical Lidocaine (%) 4 -Lidocaine (ml) 5 -Bleeding Controlled with NA -Treatment Response Procedure Tolerated Well Pain Scale: 0-10 Numeric Is Patient Pain Free? 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 In the 1970's, she was diagnosed with malignant melanoma of the right calf, with metastasis to lymph nodes in the right groin. She underwent excision of the melanoma with right groin lymphadenectomy. She was subsequently treated with a long series of radiation treatments to the right groin. As result, she has developed soft tissue radiation injury, and has previously been treated at our wound center in the past with a series of approximately 90 hyperbaric oxygen therapy treatments , in 2011. She presented at this time with recurrence of soft tissue radionecrosis in the right groin. Hyperbaric oxygen therapy treatments have been initiated, and the patient is undergoing hyperbaric oxygen therapy daily on weekdays. She is tolerating hyperbaric oxygen therapy well, without complaints or complications. Plan: We are to continue the use of collagenase Santyl topically on a daily basis. It is hoped that this will help with debridement of the fibrous and fibrotic material at the base of the patient's ulceration. The patient's right groin ulceration is located in an intertriginous zone, subjected to body heat and perspiration. Patient has been urged to keep the area clean and dry. The patient's recent laboratory studies have been reviewed, and it is noted that her white blood count was 14.7. Her recent culture results were positive for Staphylococcus aureus. A prescription for Levaquin 500 milligrams daily has been initiated for a total of 10 days. Hyperbaric oxygen therapy is indicated due to the patient's diagnosis of soft tissue radionecrosis, and is to continue. We have renewed the order for an additional course of 20 HBO treatments, which is in accordance with the treatment protocol from the patient' s past, which resulted in successful healing. Patient will return in 1 week for reevaluation. Influenza vaccine was not administered today. Patient is not a smoker. She stands 5 feet 7 inches tall. She weighs 198 pounds. Her BMI is 31, which places her in a class I category. Weight loss has been recommended. She is to collaborate with her primary care physician in this regard.
--- NOTE | 2017-09-05 11:22 | PCM.HBO.PN ---
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 Progress: The patient has tolerated Hyperbaric Oxygen Therapy well so far. Tolerance of hyperbaric oxygen therapy: Hyperbaric oxygen therapy was administered as per the facility's protocol. Today's session represents the 30th such hyperbaric treatment. The patient tolerated hyperbaric oxygen therapy well, without complications or complaints. Upon emergence from the hyperbaric chamber, the patient's vital signs remained stable. The patient was discharged in good condition. 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 The patient's father at age of 79 with a history of cardiomyopathy. Smoking Status: Former smoker Tobacco Use: Non-smoker Physical Exam Vital Signs Temp Pulse Resp BP 97.8 F 57 L 16 135/88 H 09/05/17 10:03 09/05/17 10:03 09/05/17 10:03 09/05/17 10:03 General: Alert, Oriented x3, Cooperative, No apparent distress, Well developed, Well nourished HEENT: Atraumatic, PERRLA, EOMI, Normocephalic Lungs: Normal air movement Psych/Mental Status: Normal Affect, Appropriate, Alert and oriented to time, place, person, mood and affect Assessment/Plan Active Problems Ulcer of right groin (Chronic) Soft tissue radionecrosis (Chronic) soft tissue radiation injury (Chronic) Patient appears to be tolerating hyperbaric oxygen therapy well, and will be continued as per the patient's medical plan.
[2017-09-06 08:15] VITALS: BP 145/76; BP 149/99; PULSE 101; PULSE 81; RESP 16; TEMP 36.2; TEMP 36.3
--- NOTE | 2017-09-06 08:18 | PCM.HBO.PN ---
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 Progress: The patient has tolerated Hyperbaric Oxygen Therapy well so far. Tolerance of hyperbaric oxygen therapy: Hyperbaric oxygen therapy was administered as per the facility's protocol. The patient tolerated hyperbaric oxygen therapy well, without complications or complaints. Upon emergence from the hyperbaric chamber, the patient's vital signs remained stable. The patient was discharged in good condition. 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 The patient's father at age of 79 with a history of cardiomyopathy. Smoking Status: Former smoker Tobacco Use: Non-smoker Physical Exam Vital Signs Temp Pulse Resp BP 97.8 F 57 L 16 135/88 H 09/05/17 10:03 09/05/17 10:03 09/05/17 10:03 09/05/17 10:03 General: Alert, Oriented x3, Cooperative, No apparent distress HEENT: Atraumatic, Normocephalic Lungs: Normal air movement Cardiovascular: Regular rate Psych/Mental Status: Normal Affect Assessment/Plan Active Problems Ulcer of right groin (Chronic) Soft tissue radionecrosis (Chronic) soft tissue radiation injury (Chronic) Patient appears to be tolerating hyperbaric oxygen therapy well, and will be continued as per the patient's medical plan.
--- NOTE | 2017-10-02 20:32 | PCM.HBO.PN ---
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 Progress: Treatment #43 hyperbaric oxygen therapy. Tolerance of hyperbaric oxygen therapy: Hyperbaric oxygen therapy was administered as per the facility's protocol. The patient tolerated hyperbaric oxygen therapy well, without complications or complaints. Upon emergence from the hyperbaric chamber, the patient's vital signs remained stable. The patient was discharged in good condition. 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 The patient's father at age of 79 with a history of cardiomyopathy. Smoking Status: Former smoker Tobacco Use: Non-smoker Physical Exam Vital Signs Temp Pulse Resp BP 97.3 F L 81 16 149/99 H 09/06/17 08:15 09/06/17 08:15 09/06/17 08:15 09/06/17 08:15
== END 2017-09-06 23:59 ==
LOC: WC 08:00
PROVIDERS: Family Provider Family Medicine; PCP Family Medicine; Visit Provider Surgery
DX: L59.8 Other specified disorders of the skin and subcutaneous tissue related to radiation (principal); L98.492 Non-pressure chronic ulcer of skin of other sites with fat layer exposed; E66.9 Obesity, unspecified; E78.5 Hyperlipidemia, unspecified; K21.9 Gastro-esophageal reflux disease without esophagitis; Y84.2 Radiological procedure and radiotherapy as the cause of abnormal reaction of the patient, or of later complication, without mention of misadventure at the time of the procedure; Z85.42 Personal history of malignant neoplasm of other parts of uterus; Z85.820 Personal history of malignant melanoma of skin; Z68.31 Body mass index [BMI] 31.0-31.9, adult; Z71.3 Dietary counseling and surveillance; Z89.619 Acquired absence of unspecified leg above knee; Z87.891 Personal history of nicotine dependence; Z86.14 Personal history of Methicillin resistant Staphylococcus aureus infection
CPT/HCPCS: 11042; 87070; 87075; 87077; 87186; 87205; 99183; G0277

== ENCOUNTER 2017-10-06 08:00 | Outpatient (RCR) | payer OTHER, SELFPAY ==
[2017-09-07 00:41] VITALS: BP 134/73; PULSE 101; RESP 16; TEMP 36.2; BMI 68.3
[2017-09-07 08:15] VITALS: BP 149/97; PULSE 88; RESP 16; TEMP 36.2
--- NOTE | 2017-09-07 08:17 | PCM.HBO.PN ---
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 Progress: She has tolerated Hyperbaric Oxygen Therapy well so far. Tolerance of hyperbaric oxygen therapy: Hyperbaric oxygen therapy was administered as per the facility's protocol. The patient tolerated hyperbaric oxygen therapy well, without complications or complaints. Upon emergence from the hyperbaric chamber, the patient's vital signs remained stable. The patient was discharged in good condition. 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 The patient's father at age of 79 with a history of cardiomyopathy. Smoking Status: Former smoker Tobacco Use: Non-smoker Physical Exam Vital Signs Temp Pulse Resp BP 97.2 F L 101 H 16 134/73 H 09/07/17 00:41 09/07/17 00:41 09/07/17 00:41 09/07/17 00:41 General: Alert, Oriented x3, Cooperative, No apparent distress HEENT: Atraumatic, Normocephalic, TM's Clear Lungs: Normal air movement Psych/Mental Status: Normal Affect Assessment/Plan Patient appears to be tolerating hyperbaric oxygen therapy well, and will be continued as per the patient's medical plan.
[2017-09-08 08:19] VITALS: BP 136/96; BP 143/99; PULSE 78; PULSE 88; RESP 16; TEMP 36.2; TEMP 36.5
--- NOTE | 2017-09-08 10:43 | PCM.HBO.PN ---
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 Progress: She has tolerated Hyperbaric Oxygen Therapy well so far. Tolerance of hyperbaric oxygen therapy: Hyperbaric oxygen therapy was administered as per the facility's protocol. The patient tolerated hyperbaric oxygen therapy well, without complications or complaints. Upon emergence from the hyperbaric chamber, the patient's vital signs remained stable. The patient was discharged in good condition. 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 The patient's father at age of 79 with a history of cardiomyopathy. Smoking Status: Former smoker Tobacco Use: Non-smoker Physical Exam Vital Signs Temp Pulse Resp BP 97.2 F L 88 16 136/96 H 09/08/17 08:19 09/08/17 08:19 09/08/17 08:19 09/08/17 08:19 Assessment/Plan Patient appears to be tolerating hyperbaric oxygen therapy well, and will be continued as per the patient's medical plan.
[2017-09-12 08:15] VITALS: BP 125/86; BP 134/95; PULSE 76; PULSE 83; RESP 16; TEMP 36.2; TEMP 36.3
[2017-09-12 10:10] VITALS: BP 125/86; PULSE 76; RESP 18; TEMP 36.3; BMI 68.3
--- NOTE | 2017-09-12 11:08 | PCM.WC.HP ---
(1) History of uterine cancer Status: Chronic Current Visit: No Code(s): Z85.42 - Personal history of malignant neoplasm of other parts of uterus (2) History of melanoma Status: Chronic Current Visit: No Code(s): Z85.820 - Personal history of malignant melanoma of skin (3) Hyperlipidemia Status: Chronic Current Visit: No Code(s): E78.5 - Hyperlipidemia, unspecified (4) GERD (gastroesophageal reflux disease) Status: Chronic Current Visit: No Code(s): K21.9 - Gastro-esophageal reflux disease without esophagitis (5) Ulcer of right groin Status: Chronic Current Visit: Yes Qualifiers: Non-pressure ulcer stage: with fat layer exposed Code(s): L98.499 - Non-pressure chronic ulcer of skin of other sites with unspecified severity (6) Obesity (BMI 30.0-34.9) Status: Chronic Current Visit: No Code(s): E66.9 - Obesity, unspecified (7) Amputee, above knee Status: Chronic Current Visit: No Qualifiers: Laterality: right Code(s): Z89.619 - Acquired absence of unspecified leg above knee (8) Soft tissue radionecrosis Status: Chronic Current Visit: Yes Code(s): L59.8 - Other specified disorders of the skin and subcutaneous tissue related to radiation; Y84.2 - Radiological procedure and radiotherapy as the cause of abnormal reaction of the patient, or of later complication, without mention of misadventure at the time of the procedure (9) soft tissue radiation injury Status: Chronic Current Visit: Yes History of Present Illness Date of Service: 09/12/17 Chief Complaint: 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 The patient underwent excision of her melanoma with lymphadenectomy in the right groin. She also underwent lengthy radiation treatments at the [facility] in [place], [place]. Melanoma recurred, and the patient was subsequently treated with monoclonal antibodies in 1984. 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 Treatment included local ulcer care and hyperbaric oxygen therapy. She underwent a total of nearly 90 treatments of hyperbaric oxygen therapy. It is known that she tolerated the therapies well, and derived significant benefit. She relates no history of claustrophobia, or other complications related to the hyperbaric oxygen therapy treatments. She has no history of barotrauma to lungs, ears, etc. Her medical history has been reviewed, without any evidence of contraindications to hyperbaric oxygen therapy. Hyperbaric oxygen therapy has been reinitiated, and the patient is currently undergoing hyperbaric oxygen therapy in our facility on a daily basis. A recent wound culture was positive for Staphylococcus aureus, and Levaquin 500 mg p.o. daily has been prescribed for 10 days, and is nearly completed. She is currently using collagenase Santyl topically to the wound in the right groin. She continues to undergo hyperbaric oxygen therapy on a weekday basis. 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 She is undergone excision of melanoma from the right calf, with lymphadenectomy of the right groin in the 1969's. She subsequently required surgeries of the right thigh related to osteomyelitis, MRSA infection, and radiation injury to the right femoral artery. Ultimately, the patient required right above-knee amputation, performed in 2000. She also has a remote history of open reduction and internal fixation of a right ankle fracture. Allergies/Adverse Reactions: Allergies No Known Allergies Allergy (Verified 06/20/17 09:22) Home Medications: Ambulatory Orders Medication Instructions Recorded Famotidine 20 mg PO 06/20/17 Pravastatin [Pravachol] 20 mg PO DAILY 06/20/17 - Family History Maternal - - The patient's mother is 98 years of age and relatively healthy. The patient's father at age of 79 with a history of cardiomyopathy. Smoking Status: Former smoker Tobacco Use: Non-smoker Review of Systems Constitutional: Denies: Chills, Fever, Weight Change Eyes: Denies: Pain, Vision Change HEENT: Denies: Difficulty Hearing, Difficulty Swallowing, Sinus Congestion Cardiovascular: Denies: Chest Pain, Palpitations Respiratory: Denies: Cough, Shortness of Breath Gastrointestinal: Denies: Diarrhea, Nausea, Vomiting Genitourinary: Denies: Dysuria, Hematuria Endocrine: Denies: Heat/ Cold Intolerance, Polydipsia, Polyuria Hematologic/ Lymphatic: Denies: Easy Bruising, Easy Bleeding - Physical Exam Vital Signs Temp Pulse Resp BP 97.3 F L 76 18 125/86 H 09/12/17 10:10 09/12/17 10:10 09/12/17 10:10 09/12/17 10:10 General: Alert, Oriented x3, Cooperative, No apparent distress, Well developed, Well nourished HEENT: Atraumatic, PERRLA, EOMI, Normocephalic Oral: Moist Mucosa Neck: No JVD Lungs: Normal air movement Abdomen: Non-Distended Extremities: No clubbing, No cyanosis, No edema, No Calf Tenderness, - - A well-healed right above-knee amputation is noted. The ulceration remains in the right groin, little changed in appearance. It is highly fibrotic. There are areas at the base of the ulceration which are pink and healthy in appearance, demonstrating slight improvement over one week prior. There is no sign of infection or cellulitis. Skin: No rashes Wound Measurements and Assessment WC - Nurse 1 - General Ulcer Measurement Start: 09/07/17 09:02 Freq: Status: Active Protocol: Activity Type Activity Date Activity User E-Sign Co-Sign Detail Recorded Client Recorded Date Recorded By Document 09/12/17 10:10 [place] [id number] 09/12/17 10:18 DL 09/12/17 10:10 Wound Center Nurse 1 [Ulcer Assessment] #5 R Groin -Current Size (cm) - Length 3.4 -Current Size (cm) - Width 0.8 -Current Size (cm) - Depth 0.5 -Total Square Cm 2.72 -Photo Taken Yes -Exudate Amt Small (1-33%) -Exudate Type Serosanguineous -Wound Margin Thickened -Granulation Amt Small (1-33%) -Granulation Quality Prue -Necrosis Amt Large (67-100%) -Necrotic Tissue Type Adherent Slough -Structure Exposed N/A -Texture (Blanche-wound Skin Appearance) Scarring -Moisture (Blanche-wound Skin Appearance No Abnormality ) -Color (Blanche-wound Skin Appearance) No Abnormality -Temperature (Blanche-wound Skin No Abnormality Appearance) (Pt Warm) -Tenderness on Palpation (Blanche-wound No Skin Appearance) -Ulcer Cleansing Rinsed/ Irrigated with Saline -Foul Odor after Cleansing No -Anesthetic Used 4% Lidocaine Solution - Nurse 2 - General Ulcer CM Notes Start: 09/07/17 09:02 Freq: Status: Active Protocol: Activity Type Activity Date Activity User E-Sign Co-Sign Detail Recorded Client Recorded Date Recorded By Document 09/12/17 11:00 [id number] 09/12/17 11:08 09/12/17 11:00 Wound Center Nurse 2 [Procedure/Treatment] -Time 11:00 -Correct Patient Yes -Correct Side, Site, Position Yes -Correct Procedure Yes -Procedure Performed Yes -Type of Procedure Debridement -Clinical Debridement Subcutaneous -Post Debridement Size (cm) - Length 4.9 -Post Debridement Size (cm) - Width 1.9 -Post Debridement Size (cm) - Depth 0.5 -Total Square Cm 9.31 -Wound/Ulcer Outcome Not Healed -Ulcer Cleansing Rinsed/ Irrigated with Saline -Foul Odor after Cleansing No -Bioengineered Tissue No -Bleeding Controlled with NA -Treatment Response Procedure Tolerated Well [See Physician Procedure note for Specifics] Pain Scale: 0-10 Numeric [Pain] -Is Patient Pain Free? Yes Neurological: Cranial nerves II-XII grossly intact, Neuro grossly intact Psych/Mental Status: Normal Affect, Appropriate, Alert and oriented to time, place, person, mood and affect Debridement Note Post-Debridement Measurements/Treatment - Nurse 2 - General Ulcer CM Notes Start: 09/07/17 09:02 Freq: Status: Active Protocol: Activity Type Activity Date Activity User E-Sign Co-Sign Detail Recorded Client Recorded Date Recorded By Document 09/12/17 11:00 [id number] 09/12/17 11:08 09/12/17 11:00 Wound Center Nurse 2 #5 R Groin -Time 11:00 -Correct Patient Yes -Correct Side, Site, Position Yes -Correct Procedure Yes -Procedure Performed Yes -Type of Procedure Debridement -Clinical Debridement Subcutaneous -Post Debridement Size (cm) - Length 4.9 -Post Debridement Size (cm) - Width 1.9 -Post Debridement Size (cm) - Depth 0.5 -Total Square Cm 9.31 -Wound/Ulcer Outcome Not Healed -Ulcer Cleansing Rinsed/ Irrigated with Saline -Foul Odor after Cleansing No -Bioengineered Tissue No -Bleeding Controlled with NA -Treatment Response Procedure Tolerated Well Pain Scale: 0-10 Numeric Is Patient Pain Free? Yes Laterality: Right - Groin Type of Debridement: Excisional debridement Anesthesia Used: 4% Lidocaine Solution Depth: Down to and including healthy tissue, in the subcutaneous layer Percentage of wound debrided: 100 Instrument Used: 3mm curette Severity: Fat Layer Exposed Amount of bleeding with debridement: Mild Bleeding Controlled with: Compression and gauze Patient tolerated procedure well Assessment/Plan Active Problems Ulcer of right groin (Chronic) 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 In the 1970's, she was diagnosed with malignant melanoma of the right calf, with metastasis to lymph nodes in the right groin. She underwent excision of the melanoma with right groin lymphadenectomy. She was subsequently treated with a long series of radiation treatments to the right groin. As result, she has developed soft tissue radiation injury, and has previously been treated at our wound center in the past with a series of approximately 90 hyperbaric oxygen therapy treatments, in 2011. She presented at this time with recurrence of soft tissue radionecrosis in the right groin. Hyperbaric oxygen therapy treatments have been initiated, and the patient is undergoing hyperbaric oxygen therapy daily on weekdays. She is tolerating hyperbaric oxygen therapy well, without complaints or complications. Plan: We are to continue the use of collagenase Santyl topically on a daily basis. It is hoped that this will help with debridement of the fibrous and fibrotic material at the base of the patient's ulceration. There has been improvement in recent weeks. The patient's right groin ulceration is located in an intertriginous zone, subjected to body heat and perspiration. Patient has been urged to keep the area clean and dry. The patient's recent laboratory studies have been reviewed, and it is noted that her white blood count was 14.7. Her recent culture results were positive for Staphylococcus aureus. A prescription for Levaquin 500 milligrams daily has been initiated for a total of 10 days, and is nearly completed. Hyperbaric oxygen therapy is indicated due to the patient's diagnosis of soft tissue radionecrosis, and is to continue. We have renewed the order for an additional course of 20 HBO treatments, which is in accordance with the treatment protocol from the patient's past, which resulted in successful healing. Patient will return in 1 week for reevaluation. Influenza vaccine was not administered today. Patient is not a smoker. She stands 5 feet 7 inches tall. She weighs 198 pounds. Her BMI is 31, which places her in a class I category. Weight loss has been recommended. She is to collaborate with her primary care physician in this regard.
--- NOTE | 2017-09-12 11:15 | HP.PCM_ITS ---
(1) History of uterine cancer Status: Chronic Current Visit: No Code(s): Z85.42 - Personal history of malignant neoplasm of other parts of uterus (2) History of melanoma Status: Chronic Current Visit: No Code(s): Z85.820 - Personal history of malignant melanoma of skin (3) Hyperlipidemia Status: Chronic Current Visit: No Code(s): E78.5 - Hyperlipidemia, unspecified (4) GERD (gastroesophageal reflux disease) Status: Chronic Current Visit: No Code(s): K21.9 - Gastro-esophageal reflux disease without esophagitis (5) Ulcer of right groin Status: Chronic Current Visit: Yes Qualifiers: Non-pressure ulcer stage: with fat layer exposed Code(s): L98.499 - Non-pressure chronic ulcer of skin of other sites with unspecified severity (6) Obesity (BMI 30.0-34.9) Status: Chronic Current Visit: No Code(s): E66.9 - Obesity, unspecified (7) Amputee, above knee Status: Chronic Current Visit: No Qualifiers: Laterality: right Code(s): Z89.619 - Acquired absence of unspecified leg above knee (8) Soft tissue radionecrosis Status: Chronic Current Visit: Yes Code(s): L59.8 - Other specified disorders of the skin and subcutaneous tissue related to radiation; Y84.2 - Radiological procedure and radiotherapy as the cause of abnormal reaction of the patient, or of later complication, without mention of misadventure at the time of the procedure (9) soft tissue radiation injury Status: Chronic Current Visit: Yes History of Present Illness Date of Service: 09/12/17 Chief Complaint: 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 The patient underwent excision of her melanoma with lymphadenectomy in the right groin. She also underwent lengthy radiation treatments at the [facility] in [place], [place]. Melanoma recurred, and the patient was subsequently treated with monoclonal antibodies in 1984. 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 Treatment included local ulcer care and hyperbaric oxygen therapy. She underwent a total of nearly 90 treatments of hyperbaric oxygen therapy. It is known that she tolerated the therapies well, and derived significant benefit. She relates no history of claustrophobia, or other complications related to the hyperbaric oxygen therapy treatments. She has no history of barotrauma to lungs , ears, etc. Her medical history has been reviewed, without any evidence of contraindications to hyperbaric oxygen therapy. Hyperbaric oxygen therapy has been reinitiated, and the patient is currently undergoing hyperbaric oxygen therapy in our facility on a daily basis. A recent wound culture was positive for Staphylococcus aureus, and Levaquin 500 mg p.o. daily has been prescribed for 10 days, and is nearly completed. She is currently using collagenase Santyl topically to the wound in the right groin. She continues to undergo hyperbaric oxygen therapy on a weekday basis. 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 She is undergone excision of melanoma from the right calf, with lymphadenectomy of the right groin in the 1969's. She subsequently required surgeries of the right thigh related to osteomyelitis, MRSA infection, and radiation injury to the right femoral artery. Ultimately, the patient required right above-knee amputation, performed in 2000. She also has a remote history of open reduction and internal fixation of a right ankle fracture. Allergies/Adverse Reactions: Allergies No Known Allergies Allergy (Verified 06/20/17 09:22) Home Medications: Ambulatory Orders Medication Instructions Recorded Famotidine 20 mg PO 06/20/17 Pravastatin [Pravachol] 20 mg PO DAILY 06/20/17 - Family History Maternal - - The patient's mother is 98 years of age and relatively healthy. The patient 's father at age of 79 with a history of cardiomyopathy. Smoking Status: Former smoker Tobacco Use: Non-smoker Review of Systems Constitutional: Denies: Chills, Fever, Weight Change Eyes: Denies: Pain, Vision Change HEENT: Denies: Difficulty Hearing, Difficulty Swallowing, Sinus Congestion Cardiovascular: Denies: Chest Pain, Palpitations Respiratory: Denies: Cough, Shortness of Breath Gastrointestinal: Denies: Diarrhea, Nausea, Vomiting Genitourinary: Denies: Dysuria, Hematuria Endocrine: Denies: Heat/ Cold Intolerance, Polydipsia, Polyuria Hematologic/ Lymphatic: Denies: Easy Bruising, Easy Bleeding - Physical Exam Vital Signs Temp Pulse Resp BP 97.3 F L 76 18 125/86 H 09/12/17 10:10 09/12/17 10:10 09/12/17 10:10 09/12/17 10:10 General: Alert, Oriented x3, Cooperative, No apparent distress, Well developed, Well nourished HEENT: Atraumatic, PERRLA, EOMI, Normocephalic Oral: Moist Mucosa Neck: No JVD Lungs: Normal air movement Abdomen: Non-Distended Extremities: No clubbing, No cyanosis, No edema, No Calf Tenderness, - - A well- healed right above-knee amputation is noted. The ulceration remains in the right groin, little changed in appearance. It is highly fibrotic. There are areas at the base of the ulceration which are pink and healthy in appearance, demonstrating slight improvement over one week prior. There is no sign of infection or cellulitis. Skin: No rashes Wound Measurements and Assessment WC - Nurse 1 - General Ulcer Measurement Start: 09/07/17 09:02 Freq: Status: Active Protocol: Activity Type Activity Date Activity User E-Sign Co-Sign Detail Recorded Client Recorded Date Recorded By Document 09/12/17 10:10 DL [id number] 09/12/17 10:18 DL 09/12/17 10:10 Wound Center Nurse 1 [Ulcer Assessment] #5 R Groin -Current Size (cm) - Length 3.4 -Current Size (cm) - Width 0.8 -Current Size (cm) - Depth 0.5 -Total Square Cm 2.72 -Photo Taken Yes -Exudate Amt Small (1-33%) -Exudate Type Serosanguineous -Wound Margin Thickened -Granulation Amt Small (1-33%) -Granulation Quality [place] -Necrosis Amt Large (67-100%) -Necrotic Tissue Type Adherent Slough -Structure Exposed N/A -Texture (Blanche-wound Skin Appearance) Scarring -Moisture (Blanche-wound Skin Appearance No Abnormality ) -Color (Blanche-wound Skin Appearance) No Abnormality -Temperature (Blanche-wound Skin No Abnormality Appearance) (Pt Warm) -Tenderness on Palpation (Blanche-wound No Skin Appearance) -Ulcer Cleansing Rinsed/ Irrigated with Saline -Foul Odor after Cleansing No -Anesthetic Used 4% Lidocaine Solution - Nurse 2 - General Ulcer CM Notes Start: 09/07/17 09:02 Freq: Status: Active Protocol: Activity Type Activity Date Activity User E-Sign Co-Sign Detail Recorded Client Recorded Date Recorded By Document 09/12/17 11:00 [id number] 09/12/17 11:08 09/12/17 11:00 Wound Center Nurse 2 [Procedure/Treatment] -Time 11:00 -Correct Patient Yes -Correct Side, Site, Position Yes -Correct Procedure Yes -Procedure Performed Yes -Type of Procedure Debridement -Clinical Debridement Subcutaneous -Post Debridement Size (cm) - Length 4.9 -Post Debridement Size (cm) - Width 1.9 -Post Debridement Size (cm) - Depth 0.5 -Total Square Cm 9.31 -Wound/Ulcer Outcome Not Healed -Ulcer Cleansing Rinsed/ Irrigated with Saline -Foul Odor after Cleansing No -Bioengineered Tissue No -Bleeding Controlled with NA -Treatment Response Procedure Tolerated Well [See Physician Procedure note for Specifics] Pain Scale: 0-10 Numeric [Pain] -Is Patient Pain Free? Yes Neurological: Cranial nerves II-XII grossly intact, Neuro grossly intact Psych/Mental Status: Normal Affect, Appropriate, Alert and oriented to time, place, person, mood and affect Debridement Note Post-Debridement Measurements/Treatment - Nurse 2 - General Ulcer CM Notes Start: 09/07/17 09:02 Freq: Status: Active Protocol: Activity Type Activity Date Activity User E-Sign Co-Sign Detail Recorded Client Recorded Date Recorded By Document 09/12/17 11:00 [id number] 09/12/17 11:08 09/12/17 11:00 Wound Center Nurse 2 #5 R Groin -Time 11:00 -Correct Patient Yes -Correct Side, Site, Position Yes -Correct Procedure Yes -Procedure Performed Yes -Type of Procedure Debridement -Clinical Debridement Subcutaneous -Post Debridement Size (cm) - Length 4.9 -Post Debridement Size (cm) - Width 1.9 -Post Debridement Size (cm) - Depth 0.5 -Total Square Cm 9.31 -Wound/Ulcer Outcome Not Healed -Ulcer Cleansing Rinsed/ Irrigated with Saline -Foul Odor after Cleansing No -Bioengineered Tissue No -Bleeding Controlled with NA -Treatment Response Procedure Tolerated Well Pain Scale: 0-10 Numeric Is Patient Pain Free? Yes Laterality: Right - Groin Type of Debridement: Excisional debridement Anesthesia Used: 4% Lidocaine Solution Depth: Down to and including healthy tissue, in the subcutaneous layer Percentage of wound debrided: 100 Instrument Used: 3mm curette Severity: Fat Layer Exposed Amount of bleeding with debridement: Mild Bleeding Controlled with: Compression and gauze Patient tolerated procedure well Assessment/Plan Active Problems Ulcer of right groin (Chronic) 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 In the 1970's, she was diagnosed with malignant melanoma of the right calf, with metastasis to lymph nodes in the right groin. She underwent excision of the melanoma with right groin lymphadenectomy. She was subsequently treated with a long series of radiation treatments to the right groin. As result, she has developed soft tissue radiation injury, and has previously been treated at our wound center in the past with a series of approximately 90 hyperbaric oxygen therapy treatments , in 2011. She presented at this time with recurrence of soft tissue radionecrosis in the right groin. Hyperbaric oxygen therapy treatments have been initiated, and the patient is undergoing hyperbaric oxygen therapy daily on weekdays. She is tolerating hyperbaric oxygen therapy well, without complaints or complications. Plan: We are to continue the use of collagenase Santyl topically on a daily basis. It is hoped that this will help with debridement of the fibrous and fibrotic material at the base of the patient's ulceration. There has been improvement in recent weeks. The patient's right groin ulceration is located in an intertriginous zone, subjected to body heat and perspiration. Patient has been urged to keep the area clean and dry. The patient's recent laboratory studies have been reviewed, and it is noted that her white blood count was 14.7. Her recent culture results were positive for Staphylococcus aureus. A prescription for Levaquin 500 milligrams daily has been initiated for a total of 10 days, and is nearly completed. Hyperbaric oxygen therapy is indicated due to the patient's diagnosis of soft tissue radionecrosis, and is to continue. We have renewed the order for an additional course of 20 HBO treatments, which is in accordance with the treatment protocol from the patient' s past, which resulted in successful healing. Patient will return in 1 week for reevaluation. Influenza vaccine was not administered today. Patient is not a smoker. She stands 5 feet 7 inches tall. She weighs 198 pounds. Her BMI is 31, which places her in a class I category. Weight loss has been recommended. She is to collaborate with her primary care physician in this regard.
--- NOTE | 2017-09-12 12:58 | PCM.HBO.PN ---
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 Progress: She has tolerated Hyperbaric Oxygen Therapy well so far. Tolerance of hyperbaric oxygen therapy: Hyperbaric oxygen therapy was administered as per the facility's protocol. His hyperbaric oxygen therapy session represents the 34th such session. The patient tolerated hyperbaric oxygen therapy well, without complications or complaints. Upon emergence from the hyperbaric chamber, the patient's vital signs remained stable. The patient was discharged in good condition. 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 The patient's father at age of 79 with a history of cardiomyopathy. Smoking Status: Former smoker Tobacco Use: Non-smoker Physical Exam Vital Signs Temp Pulse Resp BP 97.3 F L 76 18 125/86 H 09/12/17 10:10 09/12/17 10:10 09/12/17 10:10 09/12/17 10:10 General: Alert, Oriented x3, Cooperative, No apparent distress, Well developed, Well nourished HEENT: Atraumatic, PERRLA, EOMI, Normocephalic Lungs: Normal air movement Psych/Mental Status: Normal Affect, Appropriate, Alert and oriented to time, place, person, mood and affect Assessment/Plan Active Problems Ulcer of right groin (Chronic) Soft tissue radionecrosis (Chronic) soft tissue radiation injury (Chronic) Appears to be tolerating hyperbaric oxygen therapy well, which will be continued as per the patient's medical plan.
[2017-09-19 08:27] VITALS: BP 133/86; BP 133/89; PULSE 71; PULSE 83; RESP 16; TEMP 36.8
[2017-09-19 10:09] VITALS: BP 133/89; PULSE 83; RESP 16; TEMP 36.8; BMI 68.3
--- NOTE | 2017-09-19 11:13 | HP.PCM_ITS ---
(1) History of uterine cancer Status: Chronic Current Visit: No Code(s): Z85.42 - Personal history of malignant neoplasm of other parts of uterus (2) History of melanoma Status: Chronic Current Visit: No Code(s): Z85.820 - Personal history of malignant melanoma of skin (3) Hyperlipidemia Status: Chronic Current Visit: No Code(s): E78.5 - Hyperlipidemia, unspecified (4) GERD (gastroesophageal reflux disease) Status: Chronic Current Visit: No Code(s): K21.9 - Gastro-esophageal reflux disease without esophagitis (5) Ulcer of right groin Status: Chronic Current Visit: Yes Qualifiers: Non-pressure ulcer stage: with fat layer exposed Code(s): L98.499 - Non-pressure chronic ulcer of skin of other sites with unspecified severity (6) Obesity (BMI 30.0-34.9) Status: Chronic Current Visit: No Code(s): E66.9 - Obesity, unspecified (7) Amputee, above knee Status: Chronic Current Visit: No Qualifiers: Laterality: right Code(s): Z89.619 - Acquired absence of unspecified leg above knee (8) Soft tissue radionecrosis Status: Chronic Current Visit: Yes Code(s): L59.8 - Other specified disorders of the skin and subcutaneous tissue related to radiation; Y84.2 - Radiological procedure and radiotherapy as the cause of abnormal reaction of the patient, or of later complication, without mention of misadventure at the time of the procedure (9) soft tissue radiation injury Status: Chronic Current Visit: Yes History of Present Illness Date of Service: 09/19/17 Chief Complaint: 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 The patient underwent excision of her melanoma with lymphadenectomy in the right groin. She also underwent lengthy radiation treatments at the [facility] in [place], [place]. Melanoma recurred, and the patient was subsequently treated with monoclonal antibodies in 1984. 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 Treatment included local ulcer care and hyperbaric oxygen therapy. She underwent a total of nearly 90 treatments of hyperbaric oxygen therapy. It is known that she tolerated the therapies well, and derived significant benefit. She relates no history of claustrophobia, or other complications related to the hyperbaric oxygen therapy treatments. She has no history of barotrauma to lungs , ears, etc. Her medical history has been reviewed, without any evidence of contraindications to hyperbaric oxygen therapy. Hyperbaric oxygen therapy has been reinitiated, and the patient is currently undergoing hyperbaric oxygen therapy in our facility on a daily basis. A recent wound culture was positive for Staphylococcus aureus, and Levaquin 500 mg p.o. daily has been prescribed for 10 days, and is completed. She is currently using collagenase Santyl topically to the wound in the right groin. She continues to undergo hyperbaric oxygen therapy on a weekday basis. 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 She is undergone excision of melanoma from the right calf, with lymphadenectomy of the right groin in the 1969's. She subsequently required surgeries of the right thigh related to osteomyelitis, MRSA infection, and radiation injury to the right femoral artery. Ultimately, the patient required right above-knee amputation, performed in 2000. She also has a remote history of open reduction and internal fixation of a right ankle fracture. Allergies/Adverse Reactions: Allergies No Known Allergies Allergy (Verified 06/20/17 09:22) Home Medications: Ambulatory Orders Medication Instructions Recorded Famotidine 20 mg PO 06/20/17 Pravastatin [Pravachol] 20 mg PO DAILY 06/20/17 - Family History Maternal - - The patient's mother is 98 years of age and relatively healthy. The patient 's father at age of 79 with a history of cardiomyopathy. Smoking Status: Former smoker Tobacco Use: Non-smoker Review of Systems Constitutional: Denies: Chills, Fever, Weight Change Eyes: Denies: Pain, Vision Change HEENT: Denies: Difficulty Hearing, Difficulty Swallowing, Sinus Congestion Cardiovascular: Denies: Chest Pain, Palpitations Respiratory: Denies: Cough, Shortness of Breath Gastrointestinal: Denies: Diarrhea, Nausea, Vomiting Genitourinary: Denies: Dysuria, Hematuria Endocrine: Denies: Heat/ Cold Intolerance, Polydipsia, Polyuria Hematologic/ Lymphatic: Denies: Easy Bruising, Easy Bleeding - Physical Exam Vital Signs Temp Pulse Resp BP 98.2 F 83 16 133/89 H 09/19/17 10:09 09/19/17 10:09 09/19/17 10:09 09/19/17 10:09 General: Alert, Oriented x3, Cooperative, No apparent distress, Well developed, Well nourished HEENT: Atraumatic, PERRLA, EOMI, Normocephalic Oral: Moist Mucosa Neck: No JVD Lungs: Normal air movement Abdomen: Non-Distended Extremities: No clubbing, No cyanosis, No edema, No Calf Tenderness, - - The patient has a right above-knee amputation. The ulceration in the right groin is relatively unchanged. Dimensions are documented elsewhere. The base of the ulceration demonstrates a large area of yellow fibrotic tissue. There are small areas of pink healthy granulation tissue. Wound Measurements and Assessment WC - Nurse 1 - General Ulcer Measurement Start: 09/07/17 09:02 Freq: Status: Active Protocol: Activity Type Activity Date Activity User E-Sign Co-Sign Detail Recorded Client Recorded Date Recorded By Document 09/19/17 10:09 [email or web address] [id number] 09/19/17 10:19 DL 09/19/17 10:09 Wound Center Nurse 1 [Ulcer Assessment] #5 R Groin -Current Size (cm) - Length 3.6 -Current Size (cm) - Width 0.8 -Current Size (cm) - Depth 0.5 -Total Square Cm 2.88 -Photo Taken Yes -Exudate Amt Small (1-33%) -Exudate Type Serosanguineous -Wound Margin Thickened -Granulation Amt Small (1-33%) -Granulation Quality Sam [place] -Necrosis Amt Large (67-100%) -Necrotic Tissue Type Adherent Slough -Structure Exposed N/A -Texture (Blanche-wound Skin Appearance) Scarring -Moisture (Blanche-wound Skin Appearance No Abnormality ) -Color (Blanche-wound Skin Appearance) Erythema Rubor -Tenderness on Palpation (Blanche-wound No Skin Appearance) -Ulcer Cleansing Rinsed/ Irrigated with Saline -Foul Odor after Cleansing No -Anesthetic Used 4% Lidocaine Solution - Nurse 2 - General Ulcer CM Notes Start: 09/07/17 09:02 Freq: Status: Active Protocol: Activity Type Activity Date Activity User E-Sign Co-Sign Detail Recorded Client Recorded Date Recorded By Document 09/19/17 10:47 [id number] 09/19/17 11:00 09/19/17 10:47 Wound Center Nurse 2 [Procedure/Treatment] -Time 10:47 -Correct Patient Yes -Correct Side, Site, Position Yes -Correct Procedure Yes -Procedure Performed Yes -Type of Procedure Debridement -Clinical Debridement Subcutaneous -Post Debridement Size (cm) - Length 3.5 -Post Debridement Size (cm) - Width 0.9 -Post Debridement Size (cm) - Depth 0.3 -Total Square Cm 3.15 -Wound/Ulcer Outcome Not Healed -Ulcer Cleansing Rinsed/ Irrigated with Saline -Foul Odor after Cleansing No -Bioengineered Tissue No -Percent Used 4 -Topical Lidocaine (%) 5 -Bleeding Controlled with NA -Treatment Response Procedure Tolerated Well [See Physician Procedure note for Specifics] Pain Scale: 0-10 Numeric [Pain] -Is Patient Pain Free? Yes Neurological: Cranial nerves II-XII grossly intact, Neuro grossly intact Psych/Mental Status: Normal Affect, Appropriate, Alert and oriented to time, place, person, mood and affect Debridement Note Post-Debridement Measurements/Treatment - Nurse 2 - General Ulcer CM Notes Start: 09/07/17 09:02 Freq: Status: Active Protocol: Activity Type Activity Date Activity User E-Sign Co-Sign Detail Recorded Client Recorded Date Recorded By Document 09/12/17 11:00 [id number] 09/12/17 11:08 Document 09/19/17 10:47 [id number] 09/19/17 11:00 09/12/17 09/19/17 11:00 10:47 Wound Center Nurse 2 #5 R Groin -Time 11:00 10:47 -Correct Patient Yes Yes -Correct Side, Site, Position Yes Yes -Correct Procedure Yes Yes -Procedure Performed Yes Yes -Type of Procedure Debridement Debridement -Clinical Debridement Subcutaneous Subcutaneous -Post Debridement Size (cm) - Length 4.9 3.5 -Post Debridement Size (cm) - Width 1.9 0.9 -Post Debridement Size (cm) - Depth 0.5 0.3 -Total Square Cm 9.31 3.15 -Wound/Ulcer Outcome Not Healed Not Healed -Ulcer Cleansing Rinsed/ Rinsed/ Irrigated with Irrigated with Saline Saline -Foul Odor after Cleansing No No -Bioengineered Tissue No No -Percent Used 4 -Topical Lidocaine (%) 5 -Bleeding Controlled with NA NA -Treatment Response Procedure Procedure Tolerated Well Tolerated Well Pain Scale: 0-10 Numeric Is Patient Pain Free? 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 In the 1970's, she was diagnosed with malignant melanoma of the right calf, with metastasis to lymph nodes in the right groin. She underwent excision of the melanoma with right groin lymphadenectomy. She was subsequently treated with a long series of radiation treatments to the right groin. As result, she has developed soft tissue radiation injury, and has previously been treated at our wound center in the past with a series of approximately 90 hyperbaric oxygen therapy treatments , in 2011. She presented at this time with recurrence of soft tissue radionecrosis in the right groin. Hyperbaric oxygen therapy treatments have been initiated, and the patient is undergoing hyperbaric oxygen therapy daily on weekdays. She is tolerating hyperbaric oxygen therapy well, without complaints or complications. Plan: We are to continue the use of collagenase Santyl topically on a daily basis. It is hoped that this will help with debridement of the fibrous and fibrotic material at the base of the patient's ulceration. There has been mild improvement in recent weeks. The patient's right groin ulceration is located in an intertriginous zone, subjected to body heat and perspiration. Patient has been urged to keep the area clean and dry. The patient's recent laboratory studies have been reviewed, and it is noted that her white blood count was 14.7. Her recent culture results were positive for Staphylococcus aureus. A prescription for Levaquin 500 milligrams daily has been initiated for a total of 10 days, and is now completed. Hyperbaric oxygen therapy is indicated due to the patient's diagnosis of soft tissue radionecrosis, and is to continue. We have renewed the order for an additional course of 20 HBO treatments, which is in accordance with the treatment protocol from the patient's past, which resulted in successful healing. Patient will return in 1 week for reevaluation. Aggressive surgical excision and debridement of the area has been considered, but appears to be a less than optimal option. There would be concern as to the healing potential in the area involved, given that heavy doses of radiation have been rendered to this area in the past. Furthermore, a radical excision of the wound in this area had been previously considered several years ago, but the patient declined such intervention, and continues to prefer to avoid such a surgical approach. Influenza vaccine was not administered today. Patient is not a smoker. She stands 5 feet 7 inches tall. She weighs 198 pounds. Her BMI is 31, which places her in a class I category. Weight loss has been recommended. She is to collaborate with her primary care physician in this regard.
--- NOTE | 2017-09-19 12:36 | PCM.HBO.PN ---
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 Progress: She has tolerated Hyperbaric Oxygen Therapy well so far. Tolerance of hyperbaric oxygen therapy: Hyperbaric oxygen therapy was administered as per the facility's protocol. This hyperbaric oxygen therapy session represents the 35th such session. The patient tolerated hyperbaric oxygen therapy well, without complications or complaints. Upon emergence from the hyperbaric chamber, the patient's vital signs remained stable. The patient was discharged in good condition. 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 The patient's father at age of 79 with a history of cardiomyopathy. Smoking Status: Former smoker Tobacco Use: Non-smoker Physical Exam Vital Signs Temp Pulse Resp BP 98.2 F 83 16 133/89 H 09/19/17 10:09 09/19/17 10:09 09/19/17 10:09 09/19/17 10:09 General: Alert, Oriented x3, Cooperative, No apparent distress, Well developed, Well nourished HEENT: Atraumatic, PERRLA, EOMI, Normocephalic Lungs: Normal air movement Psych/Mental Status: Normal Affect, Appropriate, Alert and oriented to time, place, person, mood and affect Assessment/Plan Active Problems Ulcer of right groin (Chronic) Soft tissue radionecrosis (Chronic) soft tissue radiation injury (Chronic) Patient appears to be tolerating hyperbaric oxygen therapy well, which will continue as per the patient's medical plan.
[2017-09-20 08:18] VITALS: BP 132/88; PULSE 94; RESP 16; TEMP 36.6
--- NOTE | 2017-09-20 13:16 | PCM.HBO.PN ---
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 Progress: She has tolerated Hyperbaric Oxygen Therapy well so far. Tolerance of hyperbaric oxygen therapy: Hyperbaric oxygen therapy was administered as per the facility's protocol. The patient tolerated hyperbaric oxygen therapy well, without complications or complaints. Upon emergence from the hyperbaric chamber, the patient's vital signs remained stable. The patient was discharged in good condition. 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 The patient's father at age of 79 with a history of cardiomyopathy. Smoking Status: Former smoker Tobacco Use: Non-smoker Physical Exam Vital Signs Temp Pulse Resp BP 97.8 F 94 16 132/88 H 09/20/17 08:18 09/20/17 08:18 09/20/17 08:18 09/20/17 08:18 General: Alert, Oriented x3, Cooperative, No apparent distress HEENT: Atraumatic, Normocephalic Lungs: Normal air movement Cardiovascular: Regular rate Psych/Mental Status: Normal Affect Assessment/Plan Active Problems Ulcer of right groin (Chronic) Soft tissue radionecrosis (Chronic) soft tissue radiation injury (Chronic) Patient appears to be tolerating hyperbaric oxygen therapy well, which will continue as per the patient's medical plan.
[2017-09-21 08:18] VITALS: BP 122/87; BP 127/89; PULSE 116; PULSE 95; RESP 16; TEMP 36.3; TEMP 36.7
--- NOTE | 2017-09-21 08:47 | PCM.HBO.PN ---
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 Progress: She has tolerated Hyperbaric Oxygen Therapy well so far. Tolerance of hyperbaric oxygen therapy: Hyperbaric oxygen therapy was administered as per the facility's protocol. The patient tolerated hyperbaric oxygen therapy well, without complications or complaints. Upon emergence from the hyperbaric chamber, the patient's vital signs remained stable. The patient was discharged in good condition. 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 The patient's father at age of 79 with a history of cardiomyopathy. Smoking Status: Former smoker Tobacco Use: Non-smoker Physical Exam Vital Signs Temp Pulse Resp BP 97.3 F L 95 16 127/89 H 09/21/17 08:18 09/21/17 08:18 09/21/17 08:18 09/21/17 08:18 General: Alert, Oriented x3, Cooperative, No apparent distress HEENT: Atraumatic, Normocephalic, TM's Clear Lungs: Normal air movement Cardiovascular: Regular rate Psych/Mental Status: Normal Affect Assessment/Plan Active Problems Ulcer of right groin (Chronic) Soft tissue radionecrosis (Chronic) soft tissue radiation injury (Chronic) Patient appears to be tolerating hyperbaric oxygen therapy well, which will continue as per the patient's medical plan.
[2017-09-22 08:20] VITALS: BP 107/73; BP 127/79; PULSE 81; PULSE 92; RESP 16; TEMP 36.3; TEMP 36.8
--- NOTE | 2017-09-22 10:16 | PCM.HBO.PN ---
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 Progress: She has tolerated Hyperbaric Oxygen Therapy well so far. Tolerance of hyperbaric oxygen therapy: Hyperbaric oxygen therapy was administered as per the facility's protocol. The patient tolerated hyperbaric oxygen therapy well, without complications or complaints. Upon emergence from the hyperbaric chamber, the patient's vital signs remained stable. The patient was discharged in good condition. 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 The patient's father at age of 79 with a history of cardiomyopathy. Smoking Status: Former smoker Tobacco Use: Non-smoker Physical Exam Vital Signs Temp Pulse Resp BP 97.4 F L 92 16 127/79 H 09/22/17 08:20 09/22/17 08:20 09/22/17 08:20 09/22/17 08:20 Assessment/Plan Active Problems Ulcer of right groin (Chronic) Soft tissue radionecrosis (Chronic) soft tissue radiation injury (Chronic) Patient appears to be tolerating hyperbaric oxygen therapy well, which will continue as per the patient's medical plan.
[2017-09-25 08:20] VITALS: BP 134/57; BP 149/73; PULSE 81; PULSE 85; RESP 16; TEMP 36.4; TEMP 36.8
--- NOTE | 2017-09-25 18:40 | PCM.HBO.PN ---
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 Progress: Treatment #39 hyperbaric oxygen therapy. Tolerance of hyperbaric oxygen therapy: Hyperbaric oxygen therapy was administered as per the facility's protocol. The patient tolerated hyperbaric oxygen therapy well, without complications or complaints. Upon emergence from the hyperbaric chamber, the patient's vital signs remained stable. The patient was discharged in good condition. 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 The patient's father at age of 79 with a history of cardiomyopathy. Smoking Status: Former smoker Tobacco Use: Non-smoker Physical Exam Vital Signs Temp Pulse Resp BP 97.6 F L 85 16 149/73 H 09/25/17 08:20 09/25/17 08:20 09/25/17 08:20 09/25/17 08:20
[2017-09-26 08:26] VITALS: BP 136/84; BP 140/76; PULSE 81; PULSE 89; RESP 16; TEMP 36.5; TEMP 36.9
[2017-09-26 10:15] VITALS: BP 136/84; PULSE 81; RESP 16; TEMP 36.9; BMI 68.3
--- NOTE | 2017-09-26 10:41 | PCM.WC.HP ---
(1) History of uterine cancer Status: Chronic Current Visit: No Code(s): Z85.42 - Personal history of malignant neoplasm of other parts of uterus (2) History of melanoma Status: Chronic Current Visit: No Code(s): Z85.820 - Personal history of malignant melanoma of skin (3) Hyperlipidemia Status: Chronic Current Visit: No Code(s): E78.5 - Hyperlipidemia, unspecified (4) GERD (gastroesophageal reflux disease) Status: Chronic Current Visit: No Code(s): K21.9 - Gastro-esophageal reflux disease without esophagitis (5) Ulcer of right groin Status: Chronic Current Visit: Yes Qualifiers: Non-pressure ulcer stage: with fat layer exposed Code(s): L98.499 - Non-pressure chronic ulcer of skin of other sites with unspecified severity (6) Obesity (BMI 30.0-34.9) Status: Chronic Current Visit: No Code(s): E66.9 - Obesity, unspecified (7) Amputee, above knee Status: Chronic Current Visit: No Qualifiers: Laterality: right Code(s): Z89.619 - Acquired absence of unspecified leg above knee (8) Soft tissue radionecrosis Status: Chronic Current Visit: Yes Code(s): L59.8 - Other specified disorders of the skin and subcutaneous tissue related to radiation; Y84.2 - Radiological procedure and radiotherapy as the cause of abnormal reaction of the patient, or of later complication, without mention of misadventure at the time of the procedure (9) soft tissue radiation injury Status: Chronic Current Visit: Yes History of Present Illness Date of Service: 09/26/17 Chief Complaint: 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 The patient underwent excision of her melanoma with lymphadenectomy in the right groin. She also underwent lengthy radiation treatments at the [facility] in [place], [place]. Melanoma recurred, and the patient was subsequently treated with monoclonal antibodies in 1984. 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 Treatment included local ulcer care and hyperbaric oxygen therapy. She underwent a total of nearly 90 treatments of hyperbaric oxygen therapy. It is known that she tolerated the therapies well, and derived significant benefit. She relates no history of claustrophobia, or other complications related to the hyperbaric oxygen therapy treatments. She has no history of barotrauma to lungs, ears, etc. Her medical history has been reviewed, without any evidence of contraindications to hyperbaric oxygen therapy. Hyperbaric oxygen therapy has been reinitiated, and the patient is currently undergoing hyperbaric oxygen therapy in our facility on a daily basis. A recent wound culture was positive for Staphylococcus aureus, and Levaquin 500 mg p.o. daily has been prescribed for 10 days, and is completed. She is currently using collagenase Santyl topically to the wound in the right groin. She continues to undergo hyperbaric oxygen therapy on a weekday basis. 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 She is undergone excision of melanoma from the right calf, with lymphadenectomy of the right groin in the 1969's. She subsequently required surgeries of the right thigh related to osteomyelitis, MRSA infection, and radiation injury to the right femoral artery. Ultimately, the patient required right above-knee amputation, performed in 2000. She also has a remote history of open reduction and internal fixation of a right ankle fracture. Allergies/Adverse Reactions: Allergies No Known Allergies Allergy (Verified 06/20/17 09:22) Home Medications: Ambulatory Orders Medication Instructions Recorded Famotidine 20 mg PO 06/20/17 Pravastatin [Pravachol] 20 mg PO DAILY 06/20/17 - Family History Maternal - - The patient's mother is 98 years of age and relatively healthy. The patient's father at age of 79 with a history of cardiomyopathy. Smoking Status: Former smoker Tobacco Use: Non-smoker Review of Systems Constitutional: Denies: Chills, Fever, Weight Change Eyes: Denies: Pain, Vision Change HEENT: Denies: Difficulty Hearing, Difficulty Swallowing, Sinus Congestion Cardiovascular: Denies: Chest Pain, Palpitations Respiratory: Denies: Cough, Shortness of Breath Gastrointestinal: Denies: Diarrhea, Nausea, Vomiting Genitourinary: Denies: Dysuria, Hematuria Endocrine: Denies: Heat/ Cold Intolerance, Polydipsia, Polyuria Hematologic/ Lymphatic: Denies: Easy Bruising, Easy Bleeding - Physical Exam Vital Signs Temp Pulse Resp BP 98.4 F 81 16 136/84 H 09/26/17 10:15 09/26/17 10:15 09/26/17 10:15 09/26/17 10:15 General: Alert, Oriented x3, Cooperative, No apparent distress, Well developed, Well nourished HEENT: Atraumatic, PERRLA, EOMI, Normocephalic Oral: Moist Mucosa Neck: No JVD Lungs: Normal air movement Abdomen: Non-Distended Extremities: No clubbing, No cyanosis, No edema, No Calf Tenderness, - - The patient has a right above-knee amputation. The ulceration in the right groin is slightly larger. It remains fibrotic, though there is an area of pink healthy granulation tissue centrally. There is no sign of infection or cellulitis. Dimensions are documented elsewhere. Wound Measurements and Assessment WC - Nurse 1 - General Ulcer Measurement Start: 09/07/17 09:02 Freq: Status: Active Protocol: Activity Type Activity Date Activity User E-Sign Co-Sign Detail Recorded Client Recorded Date Recorded By Document 09/26/17 10:15 [facility] [id number] 09/26/17 10:17 [facility] 09/26/17 10:15 Wound Center Nurse 1 [Ulcer Assessment] #5 R Groin -Combined with other wound No -Current Size (cm) - Length 3.5 -Current Size (cm) - Width 0.8 -Current Size (cm) - Depth 0.4 -Total Square Cm 2.80 -Photo Taken No -Epithelialization None Present -Tunneling No -Undermining/Tunneling No -Exudate Amt Small (1-33%) -Exudate Type Serous -Wound Margin Distinct, Outline Attached -Granulation Amt Small (1-33%) -Granulation Quality Jal -Slough/Fibrin Yes -Necrosis Amt Large (67-100%) -Necrotic Tissue Type Adherent Slough -Structure Exposed N/A -Texture (Blanche-wound Skin Appearance) Scarring -Moisture (Blanche-wound Skin Appearance Dry/Scaly ) -Color (Blanche-wound Skin Appearance) Assessed -Temperature (Blanche-wound Skin No Abnormality Appearance) (Pt Warm) -Tenderness on Palpation (Blanche-wound No Skin Appearance) -Foul Odor after Cleansing No -Anesthetic Used 5% Lidocaine Gel WC - Nurse 2 - General Ulcer CM Notes Start: 09/07/17 09:02 Freq: Status: Active Protocol: Activity Type Activity Date Activity User E-Sign Co-Sign Detail Recorded Client Recorded Date Recorded By Document 09/26/17 10:28 [id number] 09/26/17 10:40 09/26/17 10:28 Wound Center Nurse 2 [Procedure/Treatment] -Time 10:36 -Correct Patient Yes -Correct Side, Site, Position Yes -Correct Procedure Yes -Procedure Performed Yes -Type of Procedure Debridement -Clinical Debridement Subcutaneous -Post Debridement Size (cm) - Length 3.5 -Post Debridement Size (cm) - Width 0.9 -Post Debridement Size (cm) - Depth 0.3 -Total Square Cm 3.15 -Wound/Ulcer Outcome Not Healed -Ulcer Cleansing Rinsed/ Irrigated with Saline -Topical Lidocaine (%) 4 -Lidocaine (ml) 5 -Bleeding Controlled with NA -Treatment Response Procedure Tolerated Well [See Physician Procedure note for Specifics] Neurological: Cranial nerves II-XII grossly intact, Neuro grossly intact Psych/Mental Status: Normal Affect, Appropriate, Alert and oriented to time, place, person, mood and affect Debridement Note Post-Debridement Measurements/Treatment WC - Nurse 2 - General Ulcer CM Notes Start: 09/07/17 09:02 Freq: Status: Active Protocol: Activity Type Activity Date Activity User E-Sign Co-Sign Detail Recorded Client Recorded Date Recorded By Document 09/12/17 11:00 [id number] 09/12/17 11:08 Document 09/19/17 10:47 [id number] 09/19/17 11:00 JS Document 09/26/17 10:28 [id number] 09/26/17 10:40 09/12/17 09/19/17 09/26/17 11:00 10:47 10:28 Wound Center Nurse 2 #5 R Groin -Time 11:00 10:47 10:36 -Correct Patient Yes Yes Yes -Correct Side, Site, Position Yes Yes Yes -Correct Procedure Yes Yes Yes -Procedure Performed Yes Yes Yes -Type of Procedure Debridement Debridement Debridement -Clinical Debridement Subcutaneous Subcutaneous Subcutaneous -Post Debridement Size (cm) - Length 4.9 3.5 3.5 -Post Debridement Size (cm) - Width 1.9 0.9 0.9 -Post Debridement Size (cm) - Depth 0.5 0.3 0.3 -Total Square Cm 9.31 3.15 3.15 -Wound/Ulcer Outcome Not Healed Not Healed Not Healed -Ulcer Cleansing Rinsed/ Rinsed/ Rinsed/ Irrigated with Irrigated with Irrigated with Saline Saline Saline -Foul Odor after Cleansing No No -Bioengineered Tissue No No -Percent Used 4 -Topical Lidocaine (%) 5 4 -Lidocaine (ml) 5 -Bleeding Controlled with NA NA NA -Treatment Response Procedure Procedure Procedure Tolerated Well Tolerated Well Tolerated Well Pain Scale: 0-10 Numeric Is Patient Pain Free? 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 In the 1970's, she was diagnosed with malignant melanoma of the right calf, with metastasis to lymph nodes in the right groin. She underwent excision of the melanoma with right groin lymphadenectomy. She was subsequently treated with a long series of radiation treatments to the right groin. As result, she has developed soft tissue radiation injury, and has previously been treated at our wound center in the past with a series of approximately 90 hyperbaric oxygen therapy treatments, in 2011. She presented at this time with recurrence of soft tissue radionecrosis in the right groin. Hyperbaric oxygen therapy treatments have been initiated, and the patient is undergoing hyperbaric oxygen therapy daily on weekdays. She is tolerating hyperbaric oxygen therapy well, without complaints or complications. Plan: We are to continue the use of collagenase Santyl topically on a daily basis. It is hoped that this will help with debridement of the fibrous and fibrotic material at the base of the patient's ulceration. There has been mild improvement in recent weeks. The patient's right groin ulceration is located in an intertriginous zone, subjected to body heat and perspiration. Patient has been urged to keep the area clean and dry. Hyperbaric oxygen therapy is indicated due to the patient's diagnosis of soft tissue radionecrosis, and is to continue. We have renewed the order for an additional course of 20 HBO treatments, which is in accordance with the treatment protocol from the patient's past, which resulted in successful healing. We are to increase the patient's depth of the dives henceforth in an effort to enhance healing. Additionally, we are to seek the patient's past medical records from [facility] to determine her response to past treatment. This may offer clues as to optimizing current methods. We are to also seek consultation with Dr. Carlos, plastic surgeon, seeking his recommendations regarding possible surgical excision of the patient's ulcer/wound. There has been hesitance to do so thus far, given the irradiated field, and concerns regarding healing potential. Aggressive surgical excision and debridement of the area has been considered, but appears to be a less than optimal option. There would be concern as to the healing potential in the area involved, given that heavy doses of radiation have been rendered to this area in the past. Furthermore, a radical excision of the wound in this area had been previously considered several years ago, but the patient declined such intervention, and continues to prefer to avoid such a surgical approach. The patient will return in 1 week for reassessment. Influenza vaccine was not administered today. Patient is not a smoker. She stands 5 feet 7 inches tall. She weighs 198 pounds. Her BMI is 31, which places her in a class I category. Weight loss has been recommended. She is to collaborate with her primary care physician in this regard.
--- NOTE | 2017-09-26 10:52 | HP.PCM_ITS ---
(1) History of uterine cancer Status: Chronic Current Visit: No Code(s): Z85.42 - Personal history of malignant neoplasm of other parts of uterus (2) History of melanoma Status: Chronic Current Visit: No Code(s): Z85.820 - Personal history of malignant melanoma of skin (3) Hyperlipidemia Status: Chronic Current Visit: No Code(s): E78.5 - Hyperlipidemia, unspecified (4) GERD (gastroesophageal reflux disease) Status: Chronic Current Visit: No Code(s): K21.9 - Gastro-esophageal reflux disease without esophagitis (5) Ulcer of right groin Status: Chronic Current Visit: Yes Qualifiers: Non-pressure ulcer stage: with fat layer exposed Code(s): L98.499 - Non-pressure chronic ulcer of skin of other sites with unspecified severity (6) Obesity (BMI 30.0-34.9) Status: Chronic Current Visit: No Code(s): E66.9 - Obesity, unspecified (7) Amputee, above knee Status: Chronic Current Visit: No Qualifiers: Laterality: right Code(s): Z89.619 - Acquired absence of unspecified leg above knee (8) Soft tissue radionecrosis Status: Chronic Current Visit: Yes Code(s): L59.8 - Other specified disorders of the skin and subcutaneous tissue related to radiation; Y84.2 - Radiological procedure and radiotherapy as the cause of abnormal reaction of the patient, or of later complication, without mention of misadventure at the time of the procedure (9) soft tissue radiation injury Status: Chronic Current Visit: Yes History of Present Illness Date of Service: 09/26/17 Chief Complaint: 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 The patient underwent excision of her melanoma with lymphadenectomy in the right groin. She also underwent lengthy radiation treatments at the [facility] in [place], [place]. Melanoma recurred, and the patient was subsequently treated with monoclonal antibodies in 1984. 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 Treatment included local ulcer care and hyperbaric oxygen therapy. She underwent a total of nearly 90 treatments of hyperbaric oxygen therapy. It is known that she tolerated the therapies well, and derived significant benefit. She relates no history of claustrophobia, or other complications related to the hyperbaric oxygen therapy treatments. She has no history of barotrauma to lungs , ears, etc. Her medical history has been reviewed, without any evidence of contraindications to hyperbaric oxygen therapy. Hyperbaric oxygen therapy has been reinitiated, and the patient is currently undergoing hyperbaric oxygen therapy in our facility on a daily basis. A recent wound culture was positive for Staphylococcus aureus, and Levaquin 500 mg p.o. daily has been prescribed for 10 days, and is completed. She is currently using collagenase Santyl topically to the wound in the right groin. She continues to undergo hyperbaric oxygen therapy on a weekday basis. 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 She is undergone excision of melanoma from the right calf, with lymphadenectomy of the right groin in the 1969's. She subsequently required surgeries of the right thigh related to osteomyelitis, MRSA infection, and radiation injury to the right femoral artery. Ultimately, the patient required right above-knee amputation, performed in 2000. She also has a remote history of open reduction and internal fixation of a right ankle fracture. Allergies/Adverse Reactions: Allergies No Known Allergies Allergy (Verified 06/20/17 09:22) Home Medications: Ambulatory Orders Medication Instructions Recorded Famotidine 20 mg PO 06/20/17 Pravastatin [Pravachol] 20 mg PO DAILY 06/20/17 - Family History Maternal - - The patient's mother is 98 years of age and relatively healthy. The patient 's father at age of 79 with a history of cardiomyopathy. Smoking Status: Former smoker Tobacco Use: Non-smoker Review of Systems Constitutional: Denies: Chills, Fever, Weight Change Eyes: Denies: Pain, Vision Change HEENT: Denies: Difficulty Hearing, Difficulty Swallowing, Sinus Congestion Cardiovascular: Denies: Chest Pain, Palpitations Respiratory: Denies: Cough, Shortness of Breath Gastrointestinal: Denies: Diarrhea, Nausea, Vomiting Genitourinary: Denies: Dysuria, Hematuria Endocrine: Denies: Heat/ Cold Intolerance, Polydipsia, Polyuria Hematologic/ Lymphatic: Denies: Easy Bruising, Easy Bleeding - Physical Exam Vital Signs Temp Pulse Resp BP 98.4 F 81 16 136/84 H 09/26/17 10:15 09/26/17 10:15 09/26/17 10:15 09/26/17 10:15 General: Alert, Oriented x3, Cooperative, No apparent distress, Well developed, Well nourished HEENT: Atraumatic, PERRLA, EOMI, Normocephalic Oral: Moist Mucosa Neck: No JVD Lungs: Normal air movement Abdomen: Non-Distended Extremities: No clubbing, No cyanosis, No edema, No Calf Tenderness, - - The patient has a right above-knee amputation. The ulceration in the right groin is slightly larger. It remains fibrotic, though there is an area of pink healthy granulation tissue centrally. There is no sign of infection or cellulitis. Dimensions are documented elsewhere. Wound Measurements and Assessment WC - Nurse 1 - General Ulcer Measurement Start: 09/07/17 09:02 Freq: Status: Active Protocol: Activity Type Activity Date Activity User E-Sign Co-Sign Detail Recorded Client Recorded Date Recorded By Document 09/26/17 10:[address] [facility] [id number] 09/26/17 10:[address] [facility] 09/26/17 10:15 Wound Center Nurse 1 [Ulcer Assessment] #5 R Groin -Combined with other wound No -Current Size (cm) - Length 3.5 -Current Size (cm) - Width 0.8 -Current Size (cm) - Depth 0.4 -Total Square Cm 2.80 -Photo Taken No -Epithelialization None Present -Tunneling No -Undermining/Tunneling No -Exudate Amt Small (1-33%) -Exudate Type Serous -Wound Margin Distinct, Outline Attached -Granulation Amt Small (1-33%) -Granulation Quality [place] -Slough/Fibrin Yes -Necrosis Amt Large (67-100%) -Necrotic Tissue Type Adherent Slough -Structure Exposed N/A -Texture (Blanche-wound Skin Appearance) Scarring -Moisture (Blanche-wound Skin Appearance Dry/Scaly ) -Color (Blanche-wound Skin Appearance) Assessed -Temperature (Blanche-wound Skin No Abnormality Appearance) (Pt Warm) -Tenderness on Palpation (Blanche-wound No Skin Appearance) -Foul Odor after Cleansing No -Anesthetic Used 5% Lidocaine Gel WC - Nurse 2 - General Ulcer CM Notes Start: 09/07/17 09:02 Freq: Status: Active Protocol: Activity Type Activity Date Activity User E-Sign Co-Sign Detail Recorded Client Recorded Date Recorded By Document 09/26/17 10:28 [id number] 09/26/17 10:40 09/26/17 10:28 Wound Center Nurse 2 [Procedure/Treatment] -Time 10:36 -Correct Patient Yes -Correct Side, Site, Position Yes -Correct Procedure Yes -Procedure Performed Yes -Type of Procedure Debridement -Clinical Debridement Subcutaneous -Post Debridement Size (cm) - Length 3.5 -Post Debridement Size (cm) - Width 0.9 -Post Debridement Size (cm) - Depth 0.3 -Total Square Cm 3.15 -Wound/Ulcer Outcome Not Healed -Ulcer Cleansing Rinsed/ Irrigated with Saline -Topical Lidocaine (%) 4 -Lidocaine (ml) 5 -Bleeding Controlled with NA -Treatment Response Procedure Tolerated Well [See Physician Procedure note for Specifics] Neurological: Cranial nerves II-XII grossly intact, Neuro grossly intact Psych/Mental Status: Normal Affect, Appropriate, Alert and oriented to time, place, person, mood and affect Debridement Note Post-Debridement Measurements/Treatment WC - Nurse 2 - General Ulcer CM Notes Start: 09/07/17 09:02 Freq: Status: Active Protocol: Activity Type Activity Date Activity User E-Sign Co-Sign Detail Recorded Client Recorded Date Recorded By Document 09/12/17 11:00 [id number] 09/12/17 11:08 Document 09/19/17 10:47 [id number] 09/19/17 11:00 JS Document 09/26/17 10:28 [id number] 09/26/17 10:40 09/12/17 09/19/17 09/26/17 11:00 10:47 10:28 Wound Center Nurse 2 #5 R Groin -Time 11:00 10:47 10:36 -Correct Patient Yes Yes Yes -Correct Side, Site, Position Yes Yes Yes -Correct Procedure Yes Yes Yes -Procedure Performed Yes Yes Yes -Type of Procedure Debridement Debridement Debridement -Clinical Debridement Subcutaneous Subcutaneous Subcutaneous -Post Debridement Size (cm) - Length 4.9 3.5 3.5 -Post Debridement Size (cm) - Width 1.9 0.9 0.9 -Post Debridement Size (cm) - Depth 0.5 0.3 0.3 -Total Square Cm 9.31 3.15 3.15 -Wound/Ulcer Outcome Not Healed Not Healed Not Healed -Ulcer Cleansing Rinsed/ Rinsed/ Rinsed/ Irrigated with Irrigated with Irrigated with Saline Saline Saline -Foul Odor after Cleansing No No -Bioengineered Tissue No No -Percent Used 4 -Topical Lidocaine (%) 5 4 -Lidocaine (ml) 5 -Bleeding Controlled with NA NA NA -Treatment Response Procedure Procedure Procedure Tolerated Well Tolerated Well Tolerated Well Pain Scale: 0-10 Numeric Is Patient Pain Free? 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 In the 1970's, she was diagnosed with malignant melanoma of the right calf, with metastasis to lymph nodes in the right groin. She underwent excision of the melanoma with right groin lymphadenectomy. She was subsequently treated with a long series of radiation treatments to the right groin. As result, she has developed soft tissue radiation injury, and has previously been treated at our wound center in the past with a series of approximately 90 hyperbaric oxygen therapy treatments , in 2011. She presented at this time with recurrence of soft tissue radionecrosis in the right groin. Hyperbaric oxygen therapy treatments have been initiated, and the patient is undergoing hyperbaric oxygen therapy daily on weekdays. She is tolerating hyperbaric oxygen therapy well, without complaints or complications. Plan: We are to continue the use of collagenase Santyl topically on a daily basis. It is hoped that this will help with debridement of the fibrous and fibrotic material at the base of the patient's ulceration. There has been mild improvement in recent weeks. The patient's right groin ulceration is located in an intertriginous zone, subjected to body heat and perspiration. Patient has been urged to keep the area clean and dry. Hyperbaric oxygen therapy is indicated due to the patient's diagnosis of soft tissue radionecrosis, and is to continue. We have renewed the order for an additional course of 20 HBO treatments, which is in accordance with the treatment protocol from the patient' s past, which resulted in successful healing. We are to increase the patient's depth of the dives henceforth in an effort to enhance healing. Additionally, we are to seek the patient's past medical records from [facility] to determine her response to past treatment. This may offer clues as to optimizing current methods. We are to also seek consultation with Dr. Carlos , plastic surgeon, seeking his recommendations regarding possible surgical excision of the patient's ulcer/wound. There has been hesitance to do so thus far, given the irradiated field, and concerns regarding healing potential. Aggressive surgical excision and debridement of the area has been considered, but appears to be a less than optimal option. There would be concern as to the healing potential in the area involved, given that heavy doses of radiation have been rendered to this area in the past. Furthermore, a radical excision of the wound in this area had been previously considered several years ago, but the patient declined such intervention, and continues to prefer to avoid such a surgical approach. The patient will return in 1 week for reassessment. Influenza vaccine was not administered today. Patient is not a smoker. She stands 5 feet 7 inches tall. She weighs 198 pounds. Her BMI is 31, which places her in a class I category. Weight loss has been recommended. She is to collaborate with her primary care physician in this regard.
--- NOTE | 2017-09-26 11:24 | PCM.HBO.PN ---
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 Progress: She has tolerated Hyperbaric Oxygen Therapy well so far. Tolerance of hyperbaric oxygen therapy: Hyperbaric oxygen therapy was administered as per the facility's protocol. Today's hyperbaric oxygen treatment represents the 40th such session. The patient tolerated hyperbaric oxygen therapy well, without complications or complaints. Upon emergence from the hyperbaric chamber, the patient's vital signs remained stable. The patient was discharged in good condition. 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 The patient's father at age of 79 with a history of cardiomyopathy. Smoking Status: Former smoker Tobacco Use: Non-smoker Physical Exam Vital Signs Temp Pulse Resp BP 98.4 F 81 16 136/84 H 09/26/17 10:15 09/26/17 10:15 09/26/17 10:15 09/26/17 10:15 General: Alert, Oriented x3, Cooperative, No apparent distress, Well developed, Well nourished HEENT: Atraumatic, PERRLA, EOMI, Normocephalic Lungs: Normal air movement Psych/Mental Status: Normal Affect, Appropriate, Alert and oriented to time, place, person, mood and affect Assessment/Plan Active Problems Ulcer of right groin (Chronic) Soft tissue radionecrosis (Chronic) soft tissue radiation injury (Chronic) The patient appears to be tolerating hyperbaric oxygen therapy well, which will be continued as per the patient's medical plan. Consideration is to be given to enhancing depth of dive, in an effort to enhance the patient's response to hyperbaric oxygen treatments.
[2017-09-27 09:42] VITALS: BP 126/78; BP 143/92; PULSE 77; PULSE 93; RESP 16; TEMP 36.3; TEMP 36.4
--- NOTE | 2017-09-27 18:55 | PCM.HBO.PN ---
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 Progress: She has tolerated Hyperbaric Oxygen Therapy well so far. Tolerance of hyperbaric oxygen therapy: Hyperbaric oxygen therapy was administered as per the facility's protocol. The patient tolerated hyperbaric oxygen therapy well, without complications or complaints. Upon emergence from the hyperbaric chamber, the patient's vital signs remained stable. The patient was discharged in good condition. 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 The patient's father at age of 79 with a history of cardiomyopathy. Smoking Status: Former smoker Tobacco Use: Non-smoker Physical Exam Vital Signs Temp Pulse Resp BP 97.4 F L 93 16 143/92 H 09/27/17 09:42 09/27/17 09:42 09/27/17 09:42 09/27/17 09:42 General: Alert, Oriented x3, Cooperative, No apparent distress HEENT: Atraumatic, Normocephalic, TM's Clear Lungs: Normal air movement Cardiovascular: Regular rate Psych/Mental Status: Normal Affect Assessment/Plan Active Problems Ulcer of right groin (Chronic) Soft tissue radionecrosis (Chronic) soft tissue radiation injury (Chronic) The patient appears to be tolerating hyperbaric oxygen therapy well, which will be continued as per the patient's medical plan.
[2017-09-28 09:15] VITALS: BP 149/79; BP 152/77; PULSE 79; PULSE 92; RESP 16; TEMP 36.4; TEMP 36.9
--- NOTE | 2017-09-28 19:25 | PCM.HBO.PN ---
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 Progress: She has tolerated Hyperbaric Oxygen Therapy well so far and continues to tolerate the settings. Tolerance of hyperbaric oxygen therapy: Hyperbaric oxygen therapy was administered as per the facility's protocol. The patient tolerated hyperbaric oxygen therapy well, without complications or complaints. Upon emergence from the hyperbaric chamber, the patient's vital signs remained stable. The patient was discharged in good condition. 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 The patient's father at age of 79 with a history of cardiomyopathy. Smoking Status: Former smoker Tobacco Use: Non-smoker Physical Exam Vital Signs Temp Pulse Resp BP 97.6 F L 92 16 149/79 H 09/28/17 09:15 09/28/17 09:15 09/28/17 09:15 09/28/17 09:15 General: Alert, Oriented x3, Cooperative, No apparent distress HEENT: Atraumatic, Normocephalic, TM's Clear Lungs: Normal air movement Psych/Mental Status: Normal Affect Assessment/Plan Active Problems Ulcer of right groin (Chronic) Soft tissue radionecrosis (Chronic) soft tissue radiation injury (Chronic) The patient appears to be tolerating hyperbaric oxygen therapy well, which will be continued as per the patient's medical plan.
[2017-09-29 08:13] VITALS: BP 134/91; BP 136/79; PULSE 78; PULSE 90; RESP 16; TEMP 36.2; TEMP 36.8
--- NOTE | 2017-09-29 09:22 | PCM.HBO.PN ---
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 Progress: She has tolerated Hyperbaric Oxygen Therapy well so far and continues to tolerate the settings. Tolerance of hyperbaric oxygen therapy: Hyperbaric oxygen therapy was administered as per the facility's protocol. The patient tolerated hyperbaric oxygen therapy well, without complications or complaints. Upon emergence from the hyperbaric chamber, the patient's vital signs remained stable. The patient was discharged in good condition. 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 The patient's father at age of 79 with a history of cardiomyopathy. Smoking Status: Former smoker Tobacco Use: Non-smoker Physical Exam Vital Signs Temp Pulse Resp BP 97.1 F L 90 16 134/91 H 09/29/17 08:13 09/29/17 08:13 09/29/17 08:13 09/29/17 08:13 Assessment/Plan Active Problems Ulcer of right groin (Chronic) Soft tissue radionecrosis (Chronic) soft tissue radiation injury (Chronic) The patient appears to be tolerating hyperbaric oxygen therapy well, which will be continued as per the patient's medical plan.
[2017-10-02 09:02] VITALS: BP 135/96; BP 138/53; PULSE 79; PULSE 94; RESP 18; RESP 20; TEMP 35.2; TEMP 35.9
[2017-10-03 08:38] VITALS: BP 132/90; PULSE 95; RESP 16; TEMP 36.6
[2017-10-03 10:18] VITALS: BP 166/88; PULSE 86; RESP 16; TEMP 36.4; BMI 68.3
--- NOTE | 2017-10-03 10:48 | PCM.WC.HP ---
(1) History of uterine cancer Status: Chronic Current Visit: No Code(s): Z85.42 - Personal history of malignant neoplasm of other parts of uterus (2) History of melanoma Status: Chronic Current Visit: No Code(s): Z85.820 - Personal history of malignant melanoma of skin (3) Hyperlipidemia Status: Chronic Current Visit: No Code(s): E78.5 - Hyperlipidemia, unspecified (4) GERD (gastroesophageal reflux disease) Status: Chronic Current Visit: No Code(s): K21.9 - Gastro-esophageal reflux disease without esophagitis (5) Ulcer of right groin Status: Chronic Current Visit: Yes Qualifiers: Non-pressure ulcer stage: with fat layer exposed Code(s): L98.499 - Non-pressure chronic ulcer of skin of other sites with unspecified severity (6) Obesity (BMI 30.0-34.9) Status: Chronic Current Visit: No Code(s): E66.9 - Obesity, unspecified (7) Amputee, above knee Status: Chronic Current Visit: No Qualifiers: Laterality: right Code(s): Z89.619 - Acquired absence of unspecified leg above knee (8) Soft tissue radionecrosis Status: Chronic Current Visit: Yes Code(s): L59.8 - Other specified disorders of the skin and subcutaneous tissue related to radiation; Y84.2 - Radiological procedure and radiotherapy as the cause of abnormal reaction of the patient, or of later complication, without mention of misadventure at the time of the procedure (9) soft tissue radiation injury Status: Chronic Current Visit: Yes History of Present Illness Date of Service: 10/03/17 Chief Complaint: 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 The patient underwent excision of her melanoma with lymphadenectomy in the right groin. She also underwent lengthy radiation treatments at the [facility] in [place], [place]. Melanoma recurred, and the patient was subsequently treated with monoclonal antibodies in 1984. 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 Treatment included local ulcer care and hyperbaric oxygen therapy. She underwent a total of nearly 90 treatments of hyperbaric oxygen therapy. It is known that she tolerated the therapies well, and derived significant benefit. She relates no history of claustrophobia, or other complications related to the hyperbaric oxygen therapy treatments. She has no history of barotrauma to lungs, ears, etc. Her medical history has been reviewed, without any evidence of contraindications to hyperbaric oxygen therapy. Hyperbaric oxygen therapy has been reinitiated, and the patient is currently undergoing hyperbaric oxygen therapy in our facility on a daily basis. A recent wound culture was positive for Staphylococcus aureus, and Levaquin 500 mg p.o. daily has been prescribed for 10 days, and is completed. She is currently using collagenase Santyl topically to the wound in the right groin. She continues to undergo hyperbaric oxygen therapy on a weekday basis. 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 She is undergone excision of melanoma from the right calf, with lymphadenectomy of the right groin in the 1969's. She subsequently required surgeries of the right thigh related to osteomyelitis, MRSA infection, and radiation injury to the right femoral artery. Ultimately, the patient required right above-knee amputation, performed in 2000. She also has a remote history of open reduction and internal fixation of a right ankle fracture. Allergies/Adverse Reactions: Allergies No Known Allergies Allergy (Verified 06/20/17 09:22) Home Medications: Ambulatory Orders Medication Instructions Recorded Famotidine 20 mg PO 06/20/17 Pravastatin [Pravachol] 20 mg PO DAILY 06/20/17 - Family History Maternal - - The patient's mother is 98 years of age and relatively healthy. The patient's father at age of 79 with a history of cardiomyopathy. Smoking Status: Former smoker Tobacco Use: Non-smoker Review of Systems Constitutional: Denies: Chills, Fever, Weight Change Eyes: Denies: Pain, Vision Change HEENT: Denies: Difficulty Hearing, Difficulty Swallowing, Sinus Congestion Cardiovascular: Denies: Chest Pain, Palpitations Respiratory: Denies: Cough, Shortness of Breath Gastrointestinal: Denies: Diarrhea, Nausea, Vomiting Genitourinary: Denies: Dysuria, Hematuria Endocrine: Denies: Heat/ Cold Intolerance, Polydipsia, Polyuria Hematologic/ Lymphatic: Denies: Easy Bruising, Easy Bleeding - Physical Exam Vital Signs Temp Pulse Resp BP 97.5 F L 86 16 166/88 H 10/03/17 10:18 10/03/17 10:18 10/03/17 10:18 10/03/17 10:18 General: Alert, Oriented x3, Cooperative, No apparent distress, Well developed, Well nourished HEENT: Atraumatic, PERRLA, EOMI, Normocephalic Oral: Moist Mucosa Neck: No JVD Lungs: Normal air movement Abdomen: Non-Distended Extremities: No clubbing, No cyanosis, No edema, No Calf Tenderness, - - The patient has a right [id number] amputation. The ulceration of the right groin is relatively unchanged. Dimensions are documented elsewhere. There are increasing areas of pink healthy granulation tissue, but still significant about of fibrous tissue. There is some surrounding mild erythema. Wound Measurements and Assessment WC - Nurse 1 - General Ulcer Measurement Start: 09/07/17 09:02 Freq: Status: Active Protocol: Activity Type Activity Date Activity User E-Sign Co-Sign Detail Recorded Client Recorded Date Recorded By Document 10/03/17 10:18 [facility] [id number] 10/03/17 10:19 [facility] 10/03/17 10:18 Wound Center Nurse 1 [Ulcer Assessment] #5 R Groin -Combined with other wound No -Current Size (cm) - Length 3.6 -Current Size (cm) - Width 0.8 -Current Size (cm) - Depth 0.4 -Total Square Cm 2.88 -Photo Taken No -Epithelialization None Present -Tunneling No -Undermining/Tunneling No -Exudate Amt Small (1-33%) -Exudate Type Serous -Wound Margin Distinct, Outline Attached -Granulation Amt Small (1-33%) -Granulation Quality [place] -Slough/Fibrin Yes -Necrosis Amt Large (67-100%) -Necrotic Tissue Type Adherent Slough -Structure Exposed None/Limited to Skin Breakdown -Texture (Blanche-wound Skin Appearance) Scarring -Moisture (Blanche-wound Skin Appearance Assessed ) -Color (Blanche-wound Skin Appearance) Assessed -Temperature (Blanche-wound Skin No Abnormality Appearance) (Pt Warm) -Tenderness on Palpation (Blanche-wound No Skin Appearance) -Ulcer Cleansing Rinsed/ Irrigated with Saline -Foul Odor after Cleansing No -Anesthetic Used 5% Lidocaine Gel Neurological: Cranial nerves II-XII grossly intact, Neuro grossly intact Psych/Mental Status: Normal Affect, Appropriate, Alert and oriented to time, place, person, mood and affect Debridement Note Post-Debridement Measurements/Treatment WC - Nurse 2 - General Ulcer CM Notes Start: 09/07/17 09:02 Freq: Status: Active Protocol: Activity Type Activity Date Activity User E-Sign Co-Sign Detail Recorded Client Recorded Date Recorded By Document 09/12/17 11:00 [id number] 09/12/17 11:08 Document 09/19/17 10:47 [id number] 09/19/17 11:00 Document 09/26/17 10:28 [id number] 09/26/17 10:40 09/12/17 09/19/17 09/26/17 11:00 10:47 10:28 Wound Center Nurse 2 #5 R Groin -Time 11:00 10:47 10:36 -Correct Patient Yes Yes Yes -Correct Side, Site, Position Yes Yes Yes -Correct Procedure Yes Yes Yes -Procedure Performed Yes Yes Yes -Type of Procedure Debridement Debridement Debridement -Clinical Debridement Subcutaneous Subcutaneous Subcutaneous -Post Debridement Size (cm) - Length 4.9 3.5 3.5 -Post Debridement Size (cm) - Width 1.9 0.9 0.9 -Post Debridement Size (cm) - Depth 0.5 0.3 0.3 -Total Square Cm 9.31 3.15 3.15 -Wound/Ulcer Outcome Not Healed Not Healed Not Healed -Ulcer Cleansing Rinsed/ Rinsed/ Rinsed/ Irrigated with Irrigated with Irrigated with Saline Saline Saline -Foul Odor after Cleansing No No -Bioengineered Tissue No No -Percent Used 4 -Topical Lidocaine (%) 5 4 -Lidocaine (ml) 5 -Bleeding Controlled with NA NA NA -Treatment Response Procedure Procedure Procedure Tolerated Well Tolerated Well Tolerated Well Pain Scale: 0-10 Numeric Is Patient Pain Free? 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 In the 1970's, she was diagnosed with malignant melanoma of the right calf, with metastasis to lymph nodes in the right groin. She underwent excision of the melanoma with right groin lymphadenectomy. She was subsequently treated with a long series of radiation treatments to the right groin. As result, she has developed soft tissue radiation injury, and has previously been treated at our wound center in the past with a series of approximately 90 hyperbaric oxygen therapy treatments, in 2011. She presented at this time with recurrence of soft tissue radionecrosis in the right groin. Hyperbaric oxygen therapy treatments have been initiated, and the patient is undergoing hyperbaric oxygen therapy daily on weekdays. She is tolerating hyperbaric oxygen therapy well, without complaints or complications. Plan: We are to continue the use of collagenase Santyl topically on a daily basis. It is hoped that this will help with debridement of the fibrous and fibrotic material at the base of the patient's ulceration. There has been mild improvement in recent weeks. The patient's right groin ulceration is located in an intertriginous zone, subjected to body heat and perspiration. Patient has been urged to keep the area clean and dry. Hyperbaric oxygen therapy is indicated due to the patient's diagnosis of soft tissue radionecrosis, and is to continue. We have renewed the order for an additional course of 20 HBO treatments, which is in accordance with the treatment protocol from the patient's past, which resulted in successful healing. We are to increase the patient's depth of the dives henceforth in an effort to enhance healing. Additionally, we are to seek the patient's past medical records from [facility] to determine her response to past treatment. This may offer clues as to optimizing current methods. We are to also seek consultation with Dr. Carlos, plastic surgeon, seeking his recommendations regarding possible surgical excision of the patient's ulcer/wound. There has been hesitance to do so thus far, given the irradiated field, and concerns regarding healing potential. Aggressive surgical excision and debridement of the area has been considered, but appears to be a less than optimal option. There would be concern as to the healing potential in the area involved, given that heavy doses of radiation have been rendered to this area in the past. Furthermore, a radical excision of the wound in this area had been previously considered several years ago, but the patient declined such intervention, and continues to prefer to avoid such a surgical approach. Swab cultures have been obtained today, for both aerobic and anaerobic growth. We will await culture results. The patient will return in 1 week for reassessment. Influenza vaccine was not administered today. Patient is not a smoker. She stands 5 feet 7 inches tall. She weighs 198 pounds. Her BMI is 31, which places her in a class I category. Weight loss has been recommended. She is to collaborate with her primary care physician in this regard.
--- NOTE | 2017-10-03 10:54 | HP.PCM_ITS ---
(1) History of uterine cancer Status: Chronic Current Visit: No Code(s): Z85.42 - Personal history of malignant neoplasm of other parts of uterus (2) History of melanoma Status: Chronic Current Visit: No Code(s): Z85.820 - Personal history of malignant melanoma of skin (3) Hyperlipidemia Status: Chronic Current Visit: No Code(s): E78.5 - Hyperlipidemia, unspecified (4) GERD (gastroesophageal reflux disease) Status: Chronic Current Visit: No Code(s): K21.9 - Gastro-esophageal reflux disease without esophagitis (5) Ulcer of right groin Status: Chronic Current Visit: Yes Qualifiers: Non-pressure ulcer stage: with fat layer exposed Code(s): L98.499 - Non-pressure chronic ulcer of skin of other sites with unspecified severity (6) Obesity (BMI 30.0-34.9) Status: Chronic Current Visit: No Code(s): E66.9 - Obesity, unspecified (7) Amputee, above knee Status: Chronic Current Visit: No Qualifiers: Laterality: right Code(s): Z89.619 - Acquired absence of unspecified leg above knee (8) Soft tissue radionecrosis Status: Chronic Current Visit: Yes Code(s): L59.8 - Other specified disorders of the skin and subcutaneous tissue related to radiation; Y84.2 - Radiological procedure and radiotherapy as the cause of abnormal reaction of the patient, or of later complication, without mention of misadventure at the time of the procedure (9) soft tissue radiation injury Status: Chronic Current Visit: Yes History of Present Illness Date of Service: 10/03/17 Chief Complaint: 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 The patient underwent excision of her melanoma with lymphadenectomy in the right groin. She also underwent lengthy radiation treatments at the [facility] in [place], [place]. Melanoma recurred, and the patient was subsequently treated with monoclonal antibodies in 1984. 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 Treatment included local ulcer care and hyperbaric oxygen therapy. She underwent a total of nearly 90 treatments of hyperbaric oxygen therapy. It is known that she tolerated the therapies well, and derived significant benefit. She relates no history of claustrophobia, or other complications related to the hyperbaric oxygen therapy treatments. She has no history of barotrauma to lungs , ears, etc. Her medical history has been reviewed, without any evidence of contraindications to hyperbaric oxygen therapy. Hyperbaric oxygen therapy has been reinitiated, and the patient is currently undergoing hyperbaric oxygen therapy in our facility on a daily basis. A recent wound culture was positive for Staphylococcus aureus, and Levaquin 500 mg p.o. daily has been prescribed for 10 days, and is completed. She is currently using collagenase Santyl topically to the wound in the right groin. She continues to undergo hyperbaric oxygen therapy on a weekday basis. 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 She is undergone excision of melanoma from the right calf, with lymphadenectomy of the right groin in the 1969's. She subsequently required surgeries of the right thigh related to osteomyelitis, MRSA infection, and radiation injury to the right femoral artery. Ultimately, the patient required right above-knee amputation, performed in 2000. She also has a remote history of open reduction and internal fixation of a right ankle fracture. Allergies/Adverse Reactions: Allergies No Known Allergies Allergy (Verified 06/20/17 09:22) Home Medications: Ambulatory Orders Medication Instructions Recorded Famotidine 20 mg PO 06/20/17 Pravastatin [Pravachol] 20 mg PO DAILY 06/20/17 - Family History Maternal - - The patient's mother is 98 years of age and relatively healthy. The patient 's father at age of 79 with a history of cardiomyopathy. Smoking Status: Former smoker Tobacco Use: Non-smoker Review of Systems Constitutional: Denies: Chills, Fever, Weight Change Eyes: Denies: Pain, Vision Change HEENT: Denies: Difficulty Hearing, Difficulty Swallowing, Sinus Congestion Cardiovascular: Denies: Chest Pain, Palpitations Respiratory: Denies: Cough, Shortness of Breath Gastrointestinal: Denies: Diarrhea, Nausea, Vomiting Genitourinary: Denies: Dysuria, Hematuria Endocrine: Denies: Heat/ Cold Intolerance, Polydipsia, Polyuria Hematologic/ Lymphatic: Denies: Easy Bruising, Easy Bleeding - Physical Exam Vital Signs Temp Pulse Resp BP 97.5 F L 86 16 166/88 H 10/03/17 10:18 10/03/17 10:18 10/03/17 10:18 10/03/17 10:18 General: Alert, Oriented x3, Cooperative, No apparent distress, Well developed, Well nourished HEENT: Atraumatic, PERRLA, EOMI, Normocephalic Oral: Moist Mucosa Neck: No JVD Lungs: Normal air movement Abdomen: Non-Distended Extremities: No clubbing, No cyanosis, No edema, No Calf Tenderness, - - The patient has a right [id number] amputation. The ulceration of the right groin is relatively unchanged. Dimensions are documented elsewhere. There are increasing areas of pink healthy granulation tissue, but still significant about of fibrous tissue. There is some surrounding mild erythema. Wound Measurements and Assessment WC - Nurse 1 - General Ulcer Measurement Start: 09/07/17 09:02 Freq: Status: Active Protocol: Activity Type Activity Date Activity User E-Sign Co-Sign Detail Recorded Client Recorded Date Recorded By Document 10/03/17 10:18 [facility] [id number] 10/03/17 10:19 [facility] 10/03/17 10:18 Wound Center Nurse 1 [Ulcer Assessment] #5 R Groin -Combined with other wound No -Current Size (cm) - Length 3.6 -Current Size (cm) - Width 0.8 -Current Size (cm) - Depth 0.4 -Total Square Cm 2.88 -Photo Taken No -Epithelialization None Present -Tunneling No -Undermining/Tunneling No -Exudate Amt Small (1-33%) -Exudate Type Serous -Wound Margin Distinct, Outline Attached -Granulation Amt Small (1-33%) -Granulation Quality [place] -Slough/Fibrin Yes -Necrosis Amt Large (67-100%) -Necrotic Tissue Type Adherent Slough -Structure Exposed None/Limited to Skin Breakdown -Texture (Blanche-wound Skin Appearance) Scarring -Moisture (Blanche-wound Skin Appearance Assessed ) -Color (Blanche-wound Skin Appearance) Assessed -Temperature (Blanche-wound Skin No Abnormality Appearance) (Pt Warm) -Tenderness on Palpation (Blanche-wound No Skin Appearance) -Ulcer Cleansing Rinsed/ Irrigated with Saline -Foul Odor after Cleansing No -Anesthetic Used 5% Lidocaine Gel Neurological: Cranial nerves II-XII grossly intact, Neuro grossly intact Psych/Mental Status: Normal Affect, Appropriate, Alert and oriented to time, place, person, mood and affect Debridement Note Post-Debridement Measurements/Treatment WC - Nurse 2 - General Ulcer CM Notes Start: 09/07/17 09:02 Freq: Status: Active Protocol: Activity Type Activity Date Activity User E-Sign Co-Sign Detail Recorded Client Recorded Date Recorded By Document 09/12/17 11:00 [id number] 09/12/17 11:08 Document 09/19/17 10:47 [id number] 09/19/17 11:00 Document 09/26/17 10:28 [id number] 09/26/17 10:40 09/12/17 09/19/17 09/26/17 11:00 10:47 10:28 Wound Center Nurse 2 #5 R Groin -Time 11:00 10:47 10:36 -Correct Patient Yes Yes Yes -Correct Side, Site, Position Yes Yes Yes -Correct Procedure Yes Yes Yes -Procedure Performed Yes Yes Yes -Type of Procedure Debridement Debridement Debridement -Clinical Debridement Subcutaneous Subcutaneous Subcutaneous -Post Debridement Size (cm) - Length 4.9 3.5 3.5 -Post Debridement Size (cm) - Width 1.9 0.9 0.9 -Post Debridement Size (cm) - Depth 0.5 0.3 0.3 -Total Square Cm 9.31 3.15 3.15 -Wound/Ulcer Outcome Not Healed Not Healed Not Healed -Ulcer Cleansing Rinsed/ Rinsed/ Rinsed/ Irrigated with Irrigated with Irrigated with Saline Saline Saline -Foul Odor after Cleansing No No -Bioengineered Tissue No No -Percent Used 4 -Topical Lidocaine (%) 5 4 -Lidocaine (ml) 5 -Bleeding Controlled with NA NA NA -Treatment Response Procedure Procedure Procedure Tolerated Well Tolerated Well Tolerated Well Pain Scale: 0-10 Numeric Is Patient Pain Free? 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 In the 1970's, she was diagnosed with malignant melanoma of the right calf, with metastasis to lymph nodes in the right groin. She underwent excision of the melanoma with right groin lymphadenectomy. She was subsequently treated with a long series of radiation treatments to the right groin. As result, she has developed soft tissue radiation injury, and has previously been treated at our wound center in the past with a series of approximately 90 hyperbaric oxygen therapy treatments , in 2011. She presented at this time with recurrence of soft tissue radionecrosis in the right groin. Hyperbaric oxygen therapy treatments have been initiated, and the patient is undergoing hyperbaric oxygen therapy daily on weekdays. She is tolerating hyperbaric oxygen therapy well, without complaints or complications. Plan: We are to continue the use of collagenase Santyl topically on a daily basis. It is hoped that this will help with debridement of the fibrous and fibrotic material at the base of the patient's ulceration. There has been mild improvement in recent weeks. The patient's right groin ulceration is located in an intertriginous zone, subjected to body heat and perspiration. Patient has been urged to keep the area clean and dry. Hyperbaric oxygen therapy is indicated due to the patient's diagnosis of soft tissue radionecrosis, and is to continue. We have renewed the order for an additional course of 20 HBO treatments, which is in accordance with the treatment protocol from the patient' s past, which resulted in successful healing. We are to increase the patient's depth of the dives henceforth in an effort to enhance healing. Additionally, we are to seek the patient's past medical records from [facility] to determine her response to past treatment. This may offer clues as to optimizing current methods. We are to also seek consultation with Dr. Carlos , plastic surgeon, seeking his recommendations regarding possible surgical excision of the patient's ulcer/wound. There has been hesitance to do so thus far, given the irradiated field, and concerns regarding healing potential. Aggressive surgical excision and debridement of the area has been considered, but appears to be a less than optimal option. There would be concern as to the healing potential in the area involved, given that heavy doses of radiation have been rendered to this area in the past. Furthermore, a radical excision of the wound in this area had been previously considered several years ago, but the patient declined such intervention, and continues to prefer to avoid such a surgical approach. Swab cultures have been obtained today, for both aerobic and anaerobic growth. We will await culture results. The patient will return in 1 week for reassessment. Influenza vaccine was not administered today. Patient is not a smoker. She stands 5 feet 7 inches tall. She weighs 198 pounds. Her BMI is 31, which places her in a class I category. Weight loss has been recommended. She is to collaborate with her primary care physician in this regard.
--- NOTE | 2017-10-03 12:06 | PCM.HBO.PN ---
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 Progress: She has tolerated Hyperbaric Oxygen Therapy well so far and continues to tolerate the settings. Tolerance of hyperbaric oxygen therapy: Hyperbaric oxygen therapy was administered as per the facility's protocol. Today's session represents the 45th such hyperbaric oxygen treatment session. The patient tolerated hyperbaric oxygen therapy well, without complications or complaints. Upon emergence from the hyperbaric chamber, the patient's vital signs remained stable. The patient was discharged in good condition. 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 The patient's father at age of 79 with a history of cardiomyopathy. Smoking Status: Former smoker Tobacco Use: Non-smoker Physical Exam Vital Signs Temp Pulse Resp BP 97.5 F L 86 16 166/88 H 10/03/17 10:18 10/03/17 10:18 10/03/17 10:18 10/03/17 10:18 General: Alert, Oriented x3, Cooperative, No apparent distress, Well developed, Well nourished HEENT: Atraumatic, PERRLA, EOMI, Normocephalic Lungs: Normal air movement Psych/Mental Status: Normal Affect, Appropriate, Alert and oriented to time, place, person, mood and affect Assessment/Plan Active Problems Ulcer of right groin (Chronic) Soft tissue radionecrosis (Chronic) soft tissue radiation injury (Chronic) The patient appears to be doing well, and hyperbaric oxygen treatments will continue as per the patient's medical plan.
[2017-10-04 08:14] VITALS: BP 136/94; BP 147/94; PULSE 83; PULSE 92; RESP 16; TEMP 36.7; TEMP 36.9
--- NOTE | 2017-10-04 08:28 | PCM.HBO.PN ---
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 Progress: She has tolerated Hyperbaric Oxygen Therapy well so far and continues to tolerate the settings. Tolerance of hyperbaric oxygen therapy: Hyperbaric oxygen therapy was administered as per the facility's protocol. The patient tolerated hyperbaric oxygen therapy well, without complications or complaints. Upon emergence from the hyperbaric chamber, the patient's vital signs remained stable. The patient was discharged in good condition. 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 The patient's father at age of 79 with a history of cardiomyopathy. Smoking Status: Former smoker Tobacco Use: Non-smoker Physical Exam Vital Signs Temp Pulse Resp BP 98.1 F 92 16 136/94 H 10/04/17 08:14 10/04/17 08:14 10/04/17 08:14 10/04/17 08:14 General: Alert, Oriented x3, Cooperative, No apparent distress HEENT: Atraumatic, Normocephalic Lungs: Normal air movement Cardiovascular: Regular rate Psych/Mental Status: Normal Affect Assessment/Plan Active Problems Ulcer of right groin (Chronic) Soft tissue radionecrosis (Chronic) soft tissue radiation injury (Chronic) The patient appears to be doing well, and hyperbaric oxygen treatments will continue as per the patient's medical plan.
[2017-10-06 08:15] VITALS: BP 126/61; BP 160/90; PULSE 79; PULSE 95; RESP 16; TEMP 36.4; TEMP 36.8
--- NOTE | 2017-10-06 10:10 | PCM.HBO.PN ---
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 Progress: She has tolerated Hyperbaric Oxygen Therapy well so far and continues to tolerate the settings. Tolerance of hyperbaric oxygen therapy: Hyperbaric oxygen therapy was administered as per the facility's protocol. The patient tolerated hyperbaric oxygen therapy well, without complications or complaints. Upon emergence from the hyperbaric chamber, the patient's vital signs remained stable. The patient was discharged in good condition. 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 The patient's father at age of 79 with a history of cardiomyopathy. Smoking Status: Former smoker Tobacco Use: Non-smoker Physical Exam Vital Signs Temp Pulse Resp BP 97.6 F L 95 16 160/90 H 10/06/17 08:15 10/06/17 08:15 10/06/17 08:15 10/06/17 08:15 Assessment/Plan Active Problems Ulcer of right groin (Chronic) Soft tissue radionecrosis (Chronic) soft tissue radiation injury (Chronic) The patient appears to be doing well, and hyperbaric oxygen treatments will continue as per the patient's medical plan.
== END 2017-10-07 23:59 ==
LOC: WC 08:00
PROVIDERS: Family Provider Family Medicine; PCP Family Medicine; Visit Provider Surgery
DX: L59.8 Other specified disorders of the skin and subcutaneous tissue related to radiation (principal); L98.492 Non-pressure chronic ulcer of skin of other sites with fat layer exposed; Y84.2 Radiological procedure and radiotherapy as the cause of abnormal reaction of the patient, or of later complication, without mention of misadventure at the time of the procedure; Z85.42 Personal history of malignant neoplasm of other parts of uterus; Z85.820 Personal history of malignant melanoma of skin; E78.5 Hyperlipidemia, unspecified; K21.9 Gastro-esophageal reflux disease without esophagitis; E66.9 Obesity, unspecified; Z68.31 Body mass index [BMI] 31.0-31.9, adult; Z71.3 Dietary counseling and surveillance; Z87.891 Personal history of nicotine dependence; Z86.14 Personal history of Methicillin resistant Staphylococcus aureus infection; Z89.611 Acquired absence of right leg above knee
CPT/HCPCS: 11042; 87070; 87075; 87077; 87186; 87205; 99183; G0277

== ENCOUNTER 2017-10-31 10:00 | Outpatient (RCR) | payer OTHER, SELFPAY ==
[2017-10-08 00:37] VITALS: BP 134/73; PULSE 79; RESP 16; TEMP 36.8; BMI 68.3
[2017-10-09 08:21] VITALS: BP 151/70; BP 157/92; PULSE 81; PULSE 91; RESP 16; TEMP 36.6
--- NOTE | 2017-10-09 17:53 | PCM.HBO.PN ---
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 Progress: Treatment #48 hyperbaric oxygen therapy. Tolerance of hyperbaric oxygen therapy: Hyperbaric oxygen therapy was administered as per the facility's protocol. The patient tolerated hyperbaric oxygen therapy well, without complications or complaints. Upon emergence from the hyperbaric chamber, the patient's vital signs remained stable. The patient was discharged in good condition. 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 The patient's father at age of 79 with a history of cardiomyopathy. Smoking Status: Former smoker Tobacco Use: Non-smoker Physical Exam Vital Signs Temp Pulse Resp BP 97.8 F 91 16 157/92 H 10/09/17 08:21 10/09/17 08:21 10/09/17 08:21 10/09/17 08:21
[2017-10-10 15:45] VITALS: BP 143/79; BP 162/77; PULSE 95; RESP 16; TEMP 36.2
--- NOTE | 2017-10-10 17:21 | HBO.PN.PCM_ITS ---
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 Progress: Patient appears to tolerating hyperbaric oxygen therapy well. Today' s session represents the 49th such hyperbaric treatment. Tolerance of hyperbaric oxygen therapy: Hyperbaric oxygen therapy was administered as per the facility's protocol. The patient tolerated hyperbaric oxygen therapy well, without complaints or complications. Upon emergence from the hyperbaric chamber, the patient's vital signs remained stable. The patient was discharged in good condition. 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 The patient's father at age of 79 with a history of cardiomyopathy. Smoking Status: Former smoker Tobacco Use: Non-smoker Physical Exam Vital Signs Temp Pulse Resp BP 97.1 F L 95 16 162/77 H 10/10/17 15:45 10/10/17 15:45 10/10/17 15:45 10/10/17 15:45 General: Alert, Oriented x3, Cooperative, No apparent distress, Well developed, Well nourished HEENT: Atraumatic, PERRLA, EOMI, Normocephalic Lungs: Normal air movement Psych/Mental Status: Normal Affect, Appropriate, Alert and oriented to time, place, person, mood and affect Assessment/Plan Patient appears to be tolerating hyperbaric oxygen therapy well, which will be continued as per the patient's medical plan.
[2017-10-11 09:17] VITALS: BP 126/78; BP 161/84; PULSE 70; PULSE 89; RESP 16; TEMP 36.1; TEMP 36.8
--- NOTE | 2017-10-11 19:06 | PCM.HBO.PN ---
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 Progress: Patient appears to tolerating hyperbaric oxygen therapy well. Tolerance of hyperbaric oxygen therapy: Hyperbaric oxygen therapy was administered as per the facility's protocol. The patient tolerated hyperbaric oxygen therapy well, without complaints or complications. Upon emergence from the hyperbaric chamber, the patient's vital signs remained stable. The patient was discharged in good condition. 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 The patient's father at age of 79 with a history of cardiomyopathy. Smoking Status: Former smoker Tobacco Use: Non-smoker Physical Exam Vital Signs Temp Pulse Resp BP 96.9 F L 89 16 161/84 H 10/11/17 09:17 10/11/17 09:17 10/11/17 09:17 10/11/17 09:17 General: Alert, Oriented x3, Cooperative, No apparent distress HEENT: Atraumatic, Normocephalic Lungs: Normal air movement Cardiovascular: Regular rate Psych/Mental Status: Normal Affect Assessment/Plan Patient appears to be tolerating hyperbaric oxygen therapy well, which will be continued as per the patient's medical plan.
[2017-10-12 09:17] VITALS: BP 135/89; BP 144/85; PULSE 81; PULSE 93; RESP 16; TEMP 36.2
--- NOTE | 2017-10-12 11:56 | PCM.HBO.PN ---
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 Progress: Patient appears to tolerating hyperbaric oxygen therapy well. Tolerance of hyperbaric oxygen therapy: Hyperbaric oxygen therapy was administered as per the facility's protocol. The patient tolerated hyperbaric oxygen therapy well, without complaints or complications. Upon emergence from the hyperbaric chamber, the patient's vital signs remained stable. The patient was discharged in good condition. 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 The patient's father at age of 79 with a history of cardiomyopathy. Smoking Status: Former smoker Tobacco Use: Non-smoker Physical Exam Vital Signs Temp Pulse Resp BP 97.2 F L 93 16 144/85 H 10/12/17 09:17 10/12/17 09:17 10/12/17 09:17 10/12/17 09:17 General: Alert, Oriented x3, Cooperative, No apparent distress HEENT: Atraumatic, Normocephalic, TM's Clear Lungs: Normal air movement Cardiovascular: Regular rate Psych/Mental Status: Normal Affect Assessment/Plan Patient appears to be tolerating hyperbaric oxygen therapy well, which will be continued as per the patient's medical plan.
[2017-10-13 08:17] VITALS: BP 156/95; PULSE 87; RESP 16; TEMP 36.4
--- NOTE | 2017-10-13 10:16 | PCM.HBO.PN ---
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 Progress: Patient appears to tolerating hyperbaric oxygen therapy well. Tolerance of hyperbaric oxygen therapy: Hyperbaric oxygen therapy was administered as per the facility's protocol. The patient tolerated hyperbaric oxygen therapy well, without complaints or complications. Upon emergence from the hyperbaric chamber, the patient's vital signs remained stable. The patient was discharged in good condition. 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 The patient's father at age of 79 with a history of cardiomyopathy. Smoking Status: Former smoker Tobacco Use: Non-smoker Physical Exam Vital Signs Temp Pulse Resp BP 97.6 F L 87 16 156/95 H 10/13/17 08:17 10/13/17 08:17 10/13/17 08:17 10/13/17 08:17 Assessment/Plan Patient appears to be tolerating hyperbaric oxygen therapy well, which will be continued as per the patient's medical plan.
[2017-10-16 08:19] VITALS: BP 148/83; BP 159/92; PULSE 81; PULSE 83; RESP 16; TEMP 36.1; TEMP 36.9
--- NOTE | 2017-10-16 20:22 | PCM.HBO.PN ---
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 Progress: Treatment #53 hyperbaric oxygen therapy. Tolerance of hyperbaric oxygen therapy: Hyperbaric oxygen therapy was administered as per the facility's protocol. The patient tolerated hyperbaric oxygen therapy well, without complications or complaints. Upon emergence from the hyperbaric chamber, the patient's vital signs remained stable. The patient was discharged in good condition. 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 The patient's father at age of 79 with a history of cardiomyopathy. Smoking Status: Former smoker Tobacco Use: Non-smoker Physical Exam Vital Signs Temp Pulse Resp BP 98.4 F 83 16 148/83 H 10/16/17 08:19 10/16/17 08:19 10/16/17 08:19 10/16/17 08:19
[2017-10-17 09:17] VITALS: BP 154/71; BP 159/71; PULSE 91; RESP 16; TEMP 36.4
[2017-10-17 10:41] VITALS: BP 129/75; PULSE 75; RESP 16; TEMP 36.5; BMI 68.3
--- NOTE | 2017-10-17 11:30 | PCM.WC.HP ---
(1) History of uterine cancer Status: Chronic Current Visit: No Code(s): Z85.42 - Personal history of malignant neoplasm of other parts of uterus (2) History of melanoma Status: Chronic Current Visit: No Code(s): Z85.820 - Personal history of malignant melanoma of skin (3) Hyperlipidemia Status: Chronic Current Visit: No Code(s): E78.5 - Hyperlipidemia, unspecified (4) GERD (gastroesophageal reflux disease) Status: Chronic Current Visit: No Code(s): K21.9 - Gastro-esophageal reflux disease without esophagitis (5) Ulcer of right groin Status: Chronic Current Visit: Yes Qualifiers: Non-pressure ulcer stage: with fat layer exposed Code(s): L98.499 - Non-pressure chronic ulcer of skin of other sites with unspecified severity (6) Obesity (BMI 30.0-34.9) Status: Chronic Current Visit: No Code(s): E66.9 - Obesity, unspecified (7) Amputee, above knee Status: Chronic Current Visit: Yes Qualifiers: Laterality: right Code(s): Z89.619 - Acquired absence of unspecified leg above knee (8) Soft tissue radionecrosis Status: Chronic Current Visit: Yes Code(s): L59.8 - Other specified disorders of the skin and subcutaneous tissue related to radiation; Y84.2 - Radiological procedure and radiotherapy as the cause of abnormal reaction of the patient, or of later complication, without mention of misadventure at the time of the procedure (9) soft tissue radiation injury Status: Chronic Current Visit: Yes History of Present Illness Date of Service: 10/17/17 Chief Complaint: 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 The patient underwent excision of her melanoma with lymphadenectomy in the right groin. She also underwent lengthy radiation treatments at the [facility] in [place], [place]. Melanoma recurred, and the patient was subsequently treated with monoclonal antibodies in 1984. 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 Treatment included local ulcer care and hyperbaric oxygen therapy. She underwent a total of nearly 90 treatments of hyperbaric oxygen therapy. It is known that she tolerated the therapies well, and derived significant benefit. She relates no history of claustrophobia, or other complications related to the hyperbaric oxygen therapy treatments. She has no history of barotrauma to lungs, ears, etc. Her medical history has been reviewed, without any evidence of contraindications to hyperbaric oxygen therapy. Hyperbaric oxygen therapy has been reinitiated, and the patient is currently undergoing hyperbaric oxygen therapy in our facility on a daily basis. A recent wound culture was positive for Staphylococcus aureus, and Levaquin 500 mg p.o. daily has been prescribed for 10 days, and is completed. She is currently using collagenase Santyl topically to the wound in the right groin. She continues to undergo hyperbaric oxygen therapy on a weekday basis. 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 She is undergone excision of melanoma from the right calf, with lymphadenectomy of the right groin in the 1969's. She subsequently required surgeries of the right thigh related to osteomyelitis, MRSA infection, and radiation injury to the right femoral artery. Ultimately, the patient required right above-knee amputation, performed in 2000. She also has a remote history of open reduction and internal fixation of a right ankle fracture. Allergies/Adverse Reactions: Allergies No Known Allergies Allergy (Verified 06/20/17 09:22) Home Medications: Ambulatory Orders Medication Instructions Recorded Famotidine 20 mg PO 06/20/17 Pravastatin [Pravachol] 20 mg PO DAILY 06/20/17 - Family History Maternal - - The patient's mother is 98 years of age and relatively healthy. The patient's father at age of 79 with a history of cardiomyopathy. Smoking Status: Former smoker Tobacco Use: Non-smoker Review of Systems Constitutional: Denies: Chills, Fever, Weight Change Eyes: Denies: Pain, Vision Change HEENT: Denies: Difficulty Hearing, Difficulty Swallowing, Sinus Congestion Cardiovascular: Denies: Chest Pain, Palpitations Respiratory: Denies: Cough, Shortness of Breath Gastrointestinal: Denies: Diarrhea, Nausea, Vomiting Genitourinary: Denies: Dysuria, Hematuria Endocrine: Denies: Heat/ Cold Intolerance, Polydipsia, Polyuria Hematologic/ Lymphatic: Denies: Easy Bruising, Easy Bleeding - Physical Exam Vital Signs Temp Pulse Resp BP 97.7 F L 75 16 129/75 H 10/17/17 10:41 10/17/17 10:41 10/17/17 10:41 10/17/17 10:41 General: Alert, Oriented x3, Cooperative, No apparent distress, Well developed, Well nourished HEENT: Atraumatic, PERRLA, EOMI, Normocephalic Oral: Moist Mucosa Neck: No JVD Lungs: Normal air movement Abdomen: Non-Distended Extremities: No clubbing, No cyanosis, No edema, No Calf Tenderness, - - The patient has a right above-knee amputation. The ulceration in the right groin is slightly improved. There are increasing areas of granulation tissue. However, there remains a large amount of fibrous material. There is no sign of infection or cellulitis. Dimensions are documented elsewhere. Skin: No rashes Wound Measurements and Assessment WC - Nurse 1 - General Ulcer Measurement Start: 10/09/17 08:21 Freq: Status: Active Protocol: Activity Type Activity Date Activity User E-Sign Co-Sign Detail Recorded Client Recorded Date Recorded By Document 10/17/17 10:41 FL [id number] 10/17/17 10:47 [place] 10/17/17 10:41 Wound Center Nurse 1 [Ulcer Assessment] #5 R Groin -Combined with other wound No -Current Size (cm) - Length 0.9 -Current Size (cm) - Width 3.4 -Current Size (cm) - Depth 0.3 -Total Square Cm 3.06 -Photo Taken No -Epithelialization None Present -Tunneling No -Undermining/Tunneling No -Circular Undermining No -Classification - Thickness Full Thickness without Exposed Support Structure -Exudate Type Serous -Wound Margin Distinct, Outline Attached -Granulation Amt Medium (34-66%) -Granulation Quality Vancleave -Slough/Fibrin Yes -Necrosis Amt Medium (34-66%) -Necrotic Tissue Type Adherent Slough -Structure Exposed None/Limited to Skin Breakdown -Texture (Blanche-wound Skin Appearance) Assessed Localized Edema Scarring -Moisture (Blanche-wound Skin Appearance No Abnormality ) Assessed -Color (Blanche-wound Skin Appearance) Assessed Erythema -Temperature (Blanche-wound Skin No Abnormality Appearance) (Pt Warm) -Tenderness on Palpation (Blanche-wound No Skin Appearance) -Ulcer Cleansing Rinsed/ Irrigated with Saline -Foul Odor after Cleansing No -Anesthetic Used 5% Lidocaine Gel [Edema Assessment] -Lower Limb Edema Present No WC - Nurse 2 - General Ulcer CM Notes Start: 10/09/17 08:21 Freq: Status: Active Protocol: Activity Type Activity Date Activity User E-Sign Co-Sign Detail Recorded Client Recorded Date Recorded By Document 10/17/17 11:20 KEILA [id number] 10/17/17 11:26 10/17/17 11:20 Wound Center Nurse 2 [Procedure/Treatment] #5 R Groin -Time 11:20 -Correct Patient Yes -Correct Side, Site, Position Yes -Correct Procedure Yes -Procedure Performed Yes -Type of Procedure Debridement -Clinical Debridement Subcutaneous -Post Debridement Size (cm) - Length 3.5 -Post Debridement Size (cm) - Width 1.0 -Post Debridement Size (cm) - Depth 0.3 -Total Square Cm 3.50 -Wound/Ulcer Outcome Not Healed -Ulcer Cleansing Rinsed/ Irrigated with Saline -Foul Odor after Cleansing No -Bioengineered Tissue No -Topical Lidocaine (%) 4 -Lidocaine (ml) 5 -Bleeding Controlled with Pressure -Treatment Response Procedure Tolerated Well [See Physician Procedure note for Specifics] Pain Scale: 0-10 Numeric [Pain] -Is Patient Pain Free? Yes Musculoskeletal: No Muscle Wasting Neurological: Cranial nerves II-XII grossly intact, Neuro grossly intact Psych/Mental Status: Normal Affect, Appropriate, Alert and oriented to time, place, person, mood and affect Debridement Note Post-Debridement Measurements/Treatment WC - Nurse 2 - General Ulcer CM Notes Start: 10/09/17 08:21 Freq: Status: Active Protocol: Activity Type Activity Date Activity User E-Sign Co-Sign Detail Recorded Client Recorded Date Recorded By Document 10/17/17 11:20 [id number] 10/17/17 11:26 JS 10/17/17 11:20 Wound Center Nurse 2 #5 R Groin -Time 11:20 -Correct Patient Yes -Correct Side, Site, Position Yes -Correct Procedure Yes -Procedure Performed Yes -Type of Procedure Debridement -Clinical Debridement Subcutaneous -Post Debridement Size (cm) - Length 3.5 -Post Debridement Size (cm) - Width 1.0 -Post Debridement Size (cm) - Depth 0.3 -Total Square Cm 3.50 -Wound/Ulcer Outcome Not Healed -Ulcer Cleansing Rinsed/ Irrigated with Saline -Foul Odor after Cleansing No -Bioengineered Tissue No -Topical Lidocaine (%) 4 -Lidocaine (ml) 5 -Bleeding Controlled with Pressure -Treatment Response Procedure Tolerated Well Pain Scale: 0-10 Numeric Is Patient Pain Free? 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 In the 1970's, she was diagnosed with malignant melanoma of the right calf, with metastasis to lymph nodes in the right groin. She underwent excision of the melanoma with right groin lymphadenectomy. She was subsequently treated with a long series of radiation treatments to the right groin. As result, she has developed soft tissue radiation injury, and has previously been treated at our wound center in the past with a series of approximately 90 hyperbaric oxygen therapy treatments, in 2011. She presented at this time with recurrence of soft tissue radionecrosis in the right groin. Hyperbaric oxygen therapy treatments have been initiated, and the patient is undergoing hyperbaric oxygen therapy daily on weekdays. She is tolerating hyperbaric oxygen therapy well, without complaints or complications. Plan: We are to continue the use of collagenase Santyl topically on a daily basis. It is hoped that this will help with debridement of the fibrous and fibrotic material at the base of the patient's ulceration. There has been mild improvement in recent weeks. The patient's right groin ulceration is located in an intertriginous zone, subjected to body heat and perspiration. Patient has been urged to keep the area clean and dry. Hyperbaric oxygen therapy is indicated due to the patient's diagnosis of soft tissue radionecrosis, and is to continue. We have renewed the order for an additional course of 20 HBO treatments, which is in accordance with the treatment protocol from the patient's past, which resulted in successful healing. We are to increase the patient's depth of the dives henceforth in an effort to enhance healing. Additionally, we are to seek the patient's past medical records from [facility] to determine her response to past treatment. This may offer clues as to optimizing current methods. We are to also seek consultation with Dr. Carlos, plastic surgeon, seeking his recommendations regarding possible surgical excision of the patient's ulcer/wound. There has been hesitance to do so thus far, given the irradiated field, and concerns regarding healing potential. Aggressive surgical excision and debridement of the area has been considered, but appears to be a less than optimal option. There would be concern as to the healing potential in the area involved, given that heavy doses of radiation have been rendered to this area in the past. Furthermore, a radical excision of the wound in this area had been previously considered several years ago, but the patient declined such intervention, and continues to prefer to avoid such a surgical approach. Recent cultures revealed rare growth of staph aureus. This may likely be skin contamination, and likely not clinically significant. The patient will return in 1 week for reassessment. Influenza vaccine was not administered today. Patient is not a smoker. She stands 5 feet 7 inches tall. She weighs 198 pounds. Her BMI is 31, which places her in a class I category. Weight loss has been recommended. She is to collaborate with her primary care physician in this regard.
--- NOTE | 2017-10-17 11:34 | HP.PCM_ITS ---
(1) History of uterine cancer Status: Chronic Current Visit: No Code(s): Z85.42 - Personal history of malignant neoplasm of other parts of uterus (2) History of melanoma Status: Chronic Current Visit: No Code(s): Z85.820 - Personal history of malignant melanoma of skin (3) Hyperlipidemia Status: Chronic Current Visit: No Code(s): E78.5 - Hyperlipidemia, unspecified (4) GERD (gastroesophageal reflux disease) Status: Chronic Current Visit: No Code(s): K21.9 - Gastro-esophageal reflux disease without esophagitis (5) Ulcer of right groin Status: Chronic Current Visit: Yes Qualifiers: Non-pressure ulcer stage: with fat layer exposed Code(s): L98.499 - Non-pressure chronic ulcer of skin of other sites with unspecified severity (6) Obesity (BMI 30.0-34.9) Status: Chronic Current Visit: No Code(s): E66.9 - Obesity, unspecified (7) Amputee, above knee Status: Chronic Current Visit: Yes Qualifiers: Laterality: right Code(s): Z89.619 - Acquired absence of unspecified leg above knee (8) Soft tissue radionecrosis Status: Chronic Current Visit: Yes Code(s): L59.8 - Other specified disorders of the skin and subcutaneous tissue related to radiation; Y84.2 - Radiological procedure and radiotherapy as the cause of abnormal reaction of the patient, or of later complication, without mention of misadventure at the time of the procedure (9) soft tissue radiation injury Status: Chronic Current Visit: Yes History of Present Illness Date of Service: 10/17/17 Chief Complaint: 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 The patient underwent excision of her melanoma with lymphadenectomy in the right groin. She also underwent lengthy radiation treatments at the [facility] in [place], [place]. Melanoma recurred, and the patient was subsequently treated with monoclonal antibodies in 1984. 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 Treatment included local ulcer care and hyperbaric oxygen therapy. She underwent a total of nearly 90 treatments of hyperbaric oxygen therapy. It is known that she tolerated the therapies well, and derived significant benefit. She relates no history of claustrophobia, or other complications related to the hyperbaric oxygen therapy treatments. She has no history of barotrauma to lungs , ears, etc. Her medical history has been reviewed, without any evidence of contraindications to hyperbaric oxygen therapy. Hyperbaric oxygen therapy has been reinitiated, and the patient is currently undergoing hyperbaric oxygen therapy in our facility on a daily basis. A recent wound culture was positive for Staphylococcus aureus, and Levaquin 500 mg p.o. daily has been prescribed for 10 days, and is completed. She is currently using collagenase Santyl topically to the wound in the right groin. She continues to undergo hyperbaric oxygen therapy on a weekday basis. 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 She is undergone excision of melanoma from the right calf, with lymphadenectomy of the right groin in the 1969's. She subsequently required surgeries of the right thigh related to osteomyelitis, MRSA infection, and radiation injury to the right femoral artery. Ultimately, the patient required right above-knee amputation, performed in 2000. She also has a remote history of open reduction and internal fixation of a right ankle fracture. Allergies/Adverse Reactions: Allergies No Known Allergies Allergy (Verified 06/20/17 09:22) Home Medications: Ambulatory Orders Medication Instructions Recorded Famotidine 20 mg PO 06/20/17 Pravastatin [Pravachol] 20 mg PO DAILY 06/20/17 - Family History Maternal - - The patient's mother is 98 years of age and relatively healthy. The patient 's father at age of 79 with a history of cardiomyopathy. Smoking Status: Former smoker Tobacco Use: Non-smoker Review of Systems Constitutional: Denies: Chills, Fever, Weight Change Eyes: Denies: Pain, Vision Change HEENT: Denies: Difficulty Hearing, Difficulty Swallowing, Sinus Congestion Cardiovascular: Denies: Chest Pain, Palpitations Respiratory: Denies: Cough, Shortness of Breath Gastrointestinal: Denies: Diarrhea, Nausea, Vomiting Genitourinary: Denies: Dysuria, Hematuria Endocrine: Denies: Heat/ Cold Intolerance, Polydipsia, Polyuria Hematologic/ Lymphatic: Denies: Easy Bruising, Easy Bleeding - Physical Exam Vital Signs Temp Pulse Resp BP 97.7 F L 75 16 129/75 H 10/17/17 10:41 10/17/17 10:41 10/17/17 10:41 10/17/17 10:41 General: Alert, Oriented x3, Cooperative, No apparent distress, Well developed, Well nourished HEENT: Atraumatic, PERRLA, EOMI, Normocephalic Oral: Moist Mucosa Neck: No JVD Lungs: Normal air movement Abdomen: Non-Distended Extremities: No clubbing, No cyanosis, No edema, No Calf Tenderness, - - The patient has a right above-knee amputation. The ulceration in the right groin is slightly improved. There are increasing areas of granulation tissue. However, there remains a large amount of fibrous material. There is no sign of infection or cellulitis. Dimensions are documented elsewhere. Skin: No rashes Wound Measurements and Assessment WC - Nurse 1 - General Ulcer Measurement Start: 10/09/17 08:21 Freq: Status: Active Protocol: Activity Type Activity Date Activity User E-Sign Co-Sign Detail Recorded Client Recorded Date Recorded By Document 10/17/17 10:41 NC [id number] 10/17/17 10:47 TN 10/17/17 10:41 Wound Center Nurse 1 [Ulcer Assessment] #5 R Groin -Combined with other wound No -Current Size (cm) - Length 0.9 -Current Size (cm) - Width 3.4 -Current Size (cm) - Depth 0.3 -Total Square Cm 3.06 -Photo Taken No -Epithelialization None Present -Tunneling No -Undermining/Tunneling No -Circular Undermining No -Classification - Thickness Full Thickness without Exposed Support Structure -Exudate Type Serous -Wound Margin Distinct, Outline Attached -Granulation Amt Medium (34-66%) -Granulation Quality [place] -Slough/Fibrin Yes -Necrosis Amt Medium (34-66%) -Necrotic Tissue Type Adherent Slough -Structure Exposed None/Limited to Skin Breakdown -Texture (Blanche-wound Skin Appearance) Assessed Localized Edema Scarring -Moisture (Blanche-wound Skin Appearance No Abnormality ) Assessed -Color (Blanche-wound Skin Appearance) Assessed Erythema -Temperature (Blanche-wound Skin No Abnormality Appearance) (Pt Warm) -Tenderness on Palpation (Blanche-wound No Skin Appearance) -Ulcer Cleansing Rinsed/ Irrigated with Saline -Foul Odor after Cleansing No -Anesthetic Used 5% Lidocaine Gel [Edema Assessment] -Lower Limb Edema Present No WC - Nurse 2 - General Ulcer CM Notes Start: 10/09/17 08:21 Freq: Status: Active Protocol: Activity Type Activity Date Activity User E-Sign Co-Sign Detail Recorded Client Recorded Date Recorded By Document 10/17/17 11:20 [email or web address] [id number] 10/17/17 11:26 10/17/17 11:20 Wound Center Nurse 2 [Procedure/Treatment] #5 R Groin -Time 11:20 -Correct Patient Yes -Correct Side, Site, Position Yes -Correct Procedure Yes -Procedure Performed Yes -Type of Procedure Debridement -Clinical Debridement Subcutaneous -Post Debridement Size (cm) - Length 3.5 -Post Debridement Size (cm) - Width 1.0 -Post Debridement Size (cm) - Depth 0.3 -Total Square Cm 3.50 -Wound/Ulcer Outcome Not Healed -Ulcer Cleansing Rinsed/ Irrigated with Saline -Foul Odor after Cleansing No -Bioengineered Tissue No -Topical Lidocaine (%) 4 -Lidocaine (ml) 5 -Bleeding Controlled with Pressure -Treatment Response Procedure Tolerated Well [See Physician Procedure note for Specifics] Pain Scale: 0-10 Numeric [Pain] -Is Patient Pain Free? Yes Musculoskeletal: No Muscle Wasting Neurological: Cranial nerves II-XII grossly intact, Neuro grossly intact Psych/Mental Status: Normal Affect, Appropriate, Alert and oriented to time, place, person, mood and affect Debridement Note Post-Debridement Measurements/Treatment WC - Nurse 2 - General Ulcer CM Notes Start: 10/09/17 08:21 Freq: Status: Active Protocol: Activity Type Activity Date Activity User E-Sign Co-Sign Detail Recorded Client Recorded Date Recorded By Document 10/17/17 11:20 [id number] 10/17/17 11:26 JS 10/17/17 11:20 Wound Center Nurse 2 #5 R Groin -Time 11:20 -Correct Patient Yes -Correct Side, Site, Position Yes -Correct Procedure Yes -Procedure Performed Yes -Type of Procedure Debridement -Clinical Debridement Subcutaneous -Post Debridement Size (cm) - Length 3.5 -Post Debridement Size (cm) - Width 1.0 -Post Debridement Size (cm) - Depth 0.3 -Total Square Cm 3.50 -Wound/Ulcer Outcome Not Healed -Ulcer Cleansing Rinsed/ Irrigated with Saline -Foul Odor after Cleansing No -Bioengineered Tissue No -Topical Lidocaine (%) 4 -Lidocaine (ml) 5 -Bleeding Controlled with Pressure -Treatment Response Procedure Tolerated Well Pain Scale: 0-10 Numeric Is Patient Pain Free? 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 In the 1970's, she was diagnosed with malignant melanoma of the right calf, with metastasis to lymph nodes in the right groin. She underwent excision of the melanoma with right groin lymphadenectomy. She was subsequently treated with a long series of radiation treatments to the right groin. As result, she has developed soft tissue radiation injury, and has previously been treated at our wound center in the past with a series of approximately 90 hyperbaric oxygen therapy treatments , in 2011. She presented at this time with recurrence of soft tissue radionecrosis in the right groin. Hyperbaric oxygen therapy treatments have been initiated, and the patient is undergoing hyperbaric oxygen therapy daily on weekdays. She is tolerating hyperbaric oxygen therapy well, without complaints or complications. Plan: We are to continue the use of collagenase Santyl topically on a daily basis. It is hoped that this will help with debridement of the fibrous and fibrotic material at the base of the patient's ulceration. There has been mild improvement in recent weeks. The patient's right groin ulceration is located in an intertriginous zone, subjected to body heat and perspiration. Patient has been urged to keep the area clean and dry. Hyperbaric oxygen therapy is indicated due to the patient's diagnosis of soft tissue radionecrosis, and is to continue. We have renewed the order for an additional course of 20 HBO treatments, which is in accordance with the treatment protocol from the patient' s past, which resulted in successful healing. We are to increase the patient's depth of the dives henceforth in an effort to enhance healing. Additionally, we are to seek the patient's past medical records from [facility] to determine her response to past treatment. This may offer clues as to optimizing current methods. We are to also seek consultation with Dr. Carlos , plastic surgeon, seeking his recommendations regarding possible surgical excision of the patient's ulcer/wound. There has been hesitance to do so thus far, given the irradiated field, and concerns regarding healing potential. Aggressive surgical excision and debridement of the area has been considered, but appears to be a less than optimal option. There would be concern as to the healing potential in the area involved, given that heavy doses of radiation have been rendered to this area in the past. Furthermore, a radical excision of the wound in this area had been previously considered several years ago, but the patient declined such intervention, and continues to prefer to avoid such a surgical approach. Recent cultures revealed rare growth of staph aureus. This may likely be skin contamination, and likely not clinically significant. The patient will return in 1 week for reassessment. Influenza vaccine was not administered today. Patient is not a smoker. She stands 5 feet 7 inches tall. She weighs 198 pounds. Her BMI is 31, which places her in a class I category. Weight loss has been recommended. She is to collaborate with her primary care physician in this regard.
--- NOTE | 2017-10-17 12:38 | HBO.PN.PCM_ITS ---
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 Progress: Patient appears to tolerating hyperbaric oxygen therapy well. Today' s session represents the 54th such session of hyperbaric oxygen therapy. Tolerance of hyperbaric oxygen therapy: Hyperbaric oxygen therapy was administered as per the facility's protocol. The patient tolerated hyperbaric oxygen therapy well, without complaints or complications. Upon emergence from the hyperbaric chamber, the patient's vital signs remained stable. The patient was discharged in good condition. 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 The patient's father at age of 79 with a history of cardiomyopathy. Smoking Status: Former smoker Tobacco Use: Non-smoker Physical Exam Vital Signs Temp Pulse Resp BP 97.7 F L 75 16 129/75 H 10/17/17 10:41 10/17/17 10:41 10/17/17 10:41 10/17/17 10:41 General: Alert, Oriented x3, Cooperative, No apparent distress, Well developed, Well nourished HEENT: Atraumatic, PERRLA, EOMI, Normocephalic Lungs: Normal air movement Psych/Mental Status: Normal Affect, Appropriate, Alert and oriented to time, place, person, mood and affect Assessment/Plan Active Problems Ulcer of right groin (Chronic) Amputee, above knee (Chronic) Soft tissue radionecrosis (Chronic) soft tissue radiation injury (Chronic) The patient appears to be tolerating hyperbaric oxygen therapy well, which will be continued as per the patient's medical plan.
[2017-10-18 11:52] VITALS: BP 164/96; BP 166/91; PULSE 88; PULSE 93; RESP 16; TEMP 36.3; TEMP 36.7
--- NOTE | 2017-10-18 19:19 | PCM.HBO.PN ---
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 Progress: Treatment #55 hyperbaric oxygen therapy. Tolerance of hyperbaric oxygen therapy: Hyperbaric oxygen therapy was administered as per the facility's protocol. The patient tolerated hyperbaric oxygen therapy well, without complications or complaints. Upon emergence from the hyperbaric chamber, the patient's vital signs remained stable. The patient was discharged in good condition. 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 The patient's father at age of 79 with a history of cardiomyopathy. Smoking Status: Former smoker Tobacco Use: Non-smoker Physical Exam Vital Signs Temp Pulse Resp BP 97.4 F L 93 16 164/96 H 10/18/17 11:52 10/18/17 11:52 10/18/17 11:52 10/18/17 11:52
[2017-10-20 08:20] VITALS: BP 144/97; BP 166/90; PULSE 83; PULSE 87; RESP 16; TEMP 36.6; TEMP 36.8
--- NOTE | 2017-10-20 10:21 | HBO.PN.PCM_ITS ---
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 Progress: Patient appears to tolerating hyperbaric oxygen therapy well. Today' s session represents the 56th such session of hyperbaric oxygen therapy. Tolerance of hyperbaric oxygen therapy: Hyperbaric oxygen therapy was administered as per the facility's protocol. The patient tolerated hyperbaric oxygen therapy well, without complaints or complications. Upon emergence from the hyperbaric chamber, the patient's vital signs remained stable. The patient was discharged in good condition. 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 The patient's father at age of 79 with a history of cardiomyopathy. Smoking Status: Former smoker Tobacco Use: Non-smoker Physical Exam Vital Signs Temp Pulse Resp BP 98.3 F 87 16 144/97 H 10/20/17 08:20 10/20/17 08:20 10/20/17 08:20 10/20/17 08:20 Assessment/Plan Active Problems Ulcer of right groin (Chronic) Amputee, above knee (Chronic) Soft tissue radionecrosis (Chronic) soft tissue radiation injury (Chronic) The patient appears to be tolerating hyperbaric oxygen therapy well, which will be continued as per the patient's medical plan.
[2017-10-23 08:20] VITALS: BP 137/79; BP 153/89; PULSE 84; RESP 16; RESP 18; TEMP 36.3
--- NOTE | 2017-10-23 23:27 | PCM.HBO.PN ---
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 Progress: Treatment #57 hyperbaric oxygen therapy. Tolerance of hyperbaric oxygen therapy: Hyperbaric oxygen therapy was administered as per the facility's protocol. The patient tolerated hyperbaric oxygen therapy well, without complications or complaints. Upon emergence from the hyperbaric chamber, the patient's vital signs remained stable. The patient was discharged in good condition. 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 The patient's father at age of 79 with a history of cardiomyopathy. Smoking Status: Former smoker Tobacco Use: Non-smoker Physical Exam Vital Signs Temp Pulse Resp BP 97.4 F L 84 16 153/89 H 10/23/17 08:20 10/23/17 08:20 10/23/17 08:20 10/23/17 08:20
[2017-10-24 08:39] VITALS: BP 148/91; BP 149/51; PULSE 83; PULSE 87; RESP 18; TEMP 35.8; TEMP 36.6
[2017-10-24 10:18] VITALS: BP 149/51; PULSE 83; RESP 18; TEMP 36.6; BMI 68.3
--- NOTE | 2017-10-24 11:46 | PCM.WC.HP ---
(1) History of uterine cancer Status: Chronic Current Visit: No Code(s): Z85.42 - Personal history of malignant neoplasm of other parts of uterus (2) History of melanoma Status: Chronic Current Visit: No Code(s): Z85.820 - Personal history of malignant melanoma of skin (3) Hyperlipidemia Status: Chronic Current Visit: No Code(s): E78.5 - Hyperlipidemia, unspecified (4) GERD (gastroesophageal reflux disease) Status: Chronic Current Visit: No Code(s): K21.9 - Gastro-esophageal reflux disease without esophagitis (5) Ulcer of right groin Status: Chronic Current Visit: Yes Qualifiers: Non-pressure ulcer stage: with fat layer exposed Code(s): L98.499 - Non-pressure chronic ulcer of skin of other sites with unspecified severity (6) Obesity (BMI 30.0-34.9) Status: Chronic Current Visit: No Code(s): E66.9 - Obesity, unspecified (7) Amputee, above knee Status: Chronic Current Visit: Yes Qualifiers: Laterality: right Code(s): Z89.619 - Acquired absence of unspecified leg above knee (8) Soft tissue radionecrosis Status: Chronic Current Visit: Yes Code(s): L59.8 - Other specified disorders of the skin and subcutaneous tissue related to radiation; Y84.2 - Radiological procedure and radiotherapy as the cause of abnormal reaction of the patient, or of later complication, without mention of misadventure at the time of the procedure (9) soft tissue radiation injury Status: Chronic Current Visit: Yes History of Present Illness Date of Service: 10/24/17 Chief Complaint: 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 The patient underwent excision of her melanoma with lymphadenectomy in the right groin. She also underwent lengthy radiation treatments at the [facility] in [place], [place]. Melanoma recurred, and the patient was subsequently treated with monoclonal antibodies in 1984. 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 Treatment included local ulcer care and hyperbaric oxygen therapy. She underwent a total of nearly 90 treatments of hyperbaric oxygen therapy. It is known that she tolerated the therapies well, and derived significant benefit. She relates no history of claustrophobia, or other complications related to the hyperbaric oxygen therapy treatments. She has no history of barotrauma to lungs, ears, etc. Her medical history has been reviewed, without any evidence of contraindications to hyperbaric oxygen therapy. Hyperbaric oxygen therapy has been reinitiated, and the patient is currently undergoing hyperbaric oxygen therapy in our facility on a daily basis. A recent wound culture was positive for Staphylococcus aureus, and Levaquin 500 mg p.o. daily has been prescribed for 10 days, and is completed. She is currently using collagenase Santyl topically to the wound in the right groin. She continues to undergo hyperbaric oxygen therapy on a weekday basis. As of today, we now learn that the patient has another ulceration on the right medial thigh. It has been present for approximately 1 month, and concealed by the patient from the wound center staff. It appears to be due to pressure phenomenon, related to the patient's right lower extremity prosthesis. 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 She is undergone excision of melanoma from the right calf, with lymphadenectomy of the right groin in the 1969's. She subsequently required surgeries of the right thigh related to osteomyelitis, MRSA infection, and radiation injury to the right femoral artery. Ultimately, the patient required right above-knee amputation, performed in 2000. She also has a remote history of open reduction and internal fixation of a right ankle fracture. Allergies/Adverse Reactions: Allergies No Known Allergies Allergy (Verified 06/20/17 09:22) Home Medications: Ambulatory Orders Medication Instructions Recorded Famotidine 20 mg PO 06/20/17 Pravastatin [Pravachol] 20 mg PO DAILY 06/20/17 - Family History Maternal - - The patient's mother is 98 years of age and relatively healthy. The patient's father at age of 79 with a history of cardiomyopathy. Smoking Status: Former smoker Tobacco Use: Non-smoker Review of Systems Constitutional: Denies: Chills, Fever, Weight Change Eyes: Denies: Pain, Vision Change HEENT: Denies: Difficulty Hearing, Difficulty Swallowing, Sinus Congestion Cardiovascular: Denies: Chest Pain, Palpitations Respiratory: Denies: Cough, Shortness of Breath Gastrointestinal: Denies: Diarrhea, Nausea, Vomiting Genitourinary: Denies: Dysuria, Hematuria Endocrine: Denies: Heat/ Cold Intolerance, Polydipsia, Polyuria Hematologic/ Lymphatic: Denies: Easy Bruising, Easy Bleeding - Physical Exam Vital Signs Temp Pulse Resp BP 97.9 F 83 18 149/51 H 10/24/17 10:18 10/24/17 10:18 10/24/17 10:18 10/24/17 10:18 General: Alert, Oriented x3, Cooperative, No apparent distress, Well developed, Well nourished HEENT: Atraumatic, PERRLA, EOMI, Normocephalic Oral: Moist Mucosa Neck: No JVD Lungs: Normal air movement Abdomen: Non-Distended Extremities: No clubbing, No cyanosis, No edema, No Calf Tenderness, - - Patient has a right above-knee amputation. The ulceration in the right groin appears slightly improved. There are increasing areas of pink, healthy, granulation tissue. Dimensions are documented elsewhere. There is a moderate amount of bioburden. There is a moderate amount of nonviable tissue. A new ulceration is noted on the right medial thigh, appearing related to pressure from the patient's prosthesis. Dimensions are documented elsewhere. There is a moderate amount of bioburden and nonviable tissue. There is no sign of infection or cellulitis. Wound Measurements and Assessment WC - Nurse 1 - General Ulcer Measurement Start: 10/09/17 08:21 Freq: Status: Active Protocol: Activity Type Activity Date Activity User E-Sign Co-Sign Detail Recorded Client Recorded Date Recorded By Document 10/24/17 10:18 HARDIK [id number] 10/24/17 10:23 HARDIK 10/24/17 10:18 Wound Center Nurse 1 [Ulcer Assessment] 6-right medial thigh -Combined with other wound No -Current Size (cm) - Length 1.0 -Current Size (cm) - Width 1.4 -Current Size (cm) - Depth 0.2 -Total Square Cm 1.40 -Photo Taken Yes -Epithelialization Small 1-33% -Tunneling No -Undermining/Tunneling No -Circular Undermining No -Exudate Amt Small (1-33%) -Exudate Type Serosanguineous -Wound Margin Flat & Intact -Granulation Amt Large (67-100%) -Granulation Quality Red -Slough/Fibrin Yes -Necrosis Amt Small (1-33%) -Necrotic Tissue Type Adherent Slough -Structure Exposed N/A -Texture (Blanche-wound Skin Appearance) Assessed -Moisture (Blanche-wound Skin Appearance Assessed ) Dry/Scaly -Color (Blanche-wound Skin Appearance) Assessed -Temperature (Blanche-wound Skin No Abnormality Appearance) (Pt Warm) -Tenderness on Palpation (Blanche-wound No Skin Appearance) -Ulcer Cleansing Rinsed/ Irrigated with Saline -Foul Odor after Cleansing No -Anesthetic Used 4% Lidocaine Solution #5 R Groin -Combined with other wound No -Current Size (cm) - Length 3.8 -Current Size (cm) - Width 0.8 -Current Size (cm) - Depth 0.5 -Total Square Cm 3.04 -Photo Taken Yes -Epithelialization None Present -Tunneling No -Undermining/Tunneling No -Circular Undermining No -Exudate Amt Small (1-33%) -Exudate Type Serosanguineous -Wound Margin Flat & Intact -Granulation Amt Medium (34-66%) -Granulation Quality Red -Slough/Fibrin Yes -Necrosis Amt Small (1-33%) -Necrotic Tissue Type Adherent Slough -Structure Exposed N/A -Texture (Blanche-wound Skin Appearance) Assessed Scarring -Moisture (Blanche-wound Skin Appearance Assessed ) Dry/Scaly -Color (Blanche-wound Skin Appearance) Assessed -Temperature (Blanche-wound Skin No Abnormality Appearance) (Pt Warm) -Tenderness on Palpation (Blanche-wound No Skin Appearance) -Ulcer Cleansing Wound Cleanser -Foul Odor after Cleansing No -Anesthetic Used 5% Lidocaine Gel [Edema Assessment] -Lower Limb Edema Present NA WC - Nurse 2 - General Ulcer CM Notes Start: 10/09/17 08:21 Freq: Status: Active Protocol: Activity Type Activity Date Activity User E-Sign Co-Sign Detail Recorded Client Recorded Date Recorded By Document 10/24/17 11:27 [id number] 10/24/17 11:41 JS 10/24/17 11:27 Wound Center Nurse 2 [Procedure/Treatment] 6-right medial thigh -Time 11:27 -Correct Patient Yes -Correct Side, Site, Position Yes -Correct Procedure Yes -Procedure Performed Yes -Type of Procedure Debridement -Clinical Debridement Subcutaneous -Post Debridement Size (cm) - Length 1.1 -Post Debridement Size (cm) - Width 1.5 -Post Debridement Size (cm) - Depth 0.2 -Total Square Cm 1.65 -Wound/Ulcer Outcome Not Healed -Ulcer Cleansing Rinsed/ Irrigated with Saline -Foul Odor after Cleansing No -Bioengineered Tissue No -Topical Lidocaine (%) 4 -Lidocaine (ml) 5 -Bleeding Controlled with NA -Treatment Response Procedure Tolerated Well #5 R Groin -Time 11:27 -Correct Patient Yes -Correct Side, Site, Position Yes -Correct Procedure Yes -Procedure Performed Yes -Type of Procedure Debridement -Clinical Debridement Subcutaneous -Post Debridement Size (cm) - Length 3.9 -Post Debridement Size (cm) - Width 0.9 -Post Debridement Size (cm) - Depth 0.5 -Total Square Cm 3.51 -Wound/Ulcer Outcome Not Healed -Ulcer Cleansing Rinsed/ Irrigated with Saline -Foul Odor after Cleansing No -Bioengineered Tissue No -Topical Lidocaine (%) 4 -Lidocaine (ml) 5 -Bleeding Controlled with NA -Treatment Response Procedure Tolerated Well [See Physician Procedure note for Specifics] Pain Scale: 0-10 Numeric [Pain] -Is Patient Pain Free? Yes Neurological: Cranial nerves II-XII grossly intact, Neuro grossly intact Psych/Mental Status: Normal Affect, Appropriate, Alert and oriented to time, place, person, mood and affect Debridement Note Post-Debridement Measurements/Treatment WC - Nurse 2 - General Ulcer CM Notes Start: 10/09/17 08:21 Freq: Status: Active Protocol: Activity Type Activity Date Activity User E-Sign Co-Sign Detail Recorded Client Recorded Date Recorded By Document 10/17/17 11:20 [id number] 10/17/17 11:26 Document 10/24/17 11:27 [id number] 10/24/17 11:41 JS 10/17/17 10/24/17 11:20 11:27 Wound Center Nurse 2 6-right medial thigh -Time 11:27 -Correct Patient Yes -Correct Side, Site, Position Yes -Correct Procedure Yes -Procedure Performed Yes -Type of Procedure Debridement -Clinical Debridement Subcutaneous -Post Debridement Size (cm) - Length 1.1 -Post Debridement Size (cm) - Width 1.5 -Post Debridement Size (cm) - Depth 0.2 -Total Square Cm 1.65 -Wound/Ulcer Outcome Not Healed -Ulcer Cleansing Rinsed/ Irrigated with Saline -Foul Odor after Cleansing No -Bioengineered Tissue No -Topical Lidocaine (%) 4 -Lidocaine (ml) 5 -Bleeding Controlled with NA -Treatment Response Procedure Tolerated Well #5 R Groin -Time 11:20 11:27 -Correct Patient Yes Yes -Correct Side, Site, Position Yes Yes -Correct Procedure Yes Yes -Procedure Performed Yes Yes -Type of Procedure Debridement Debridement -Clinical Debridement Subcutaneous Subcutaneous -Post Debridement Size (cm) - Length 3.5 3.9 -Post Debridement Size (cm) - Width 1.0 0.9 -Post Debridement Size (cm) - Depth 0.3 0.5 -Total Square Cm 3.50 3.51 -Wound/Ulcer Outcome Not Healed Not Healed -Ulcer Cleansing Rinsed/ Rinsed/ Irrigated with Irrigated with Saline Saline -Foul Odor after Cleansing No No -Bioengineered Tissue No No -Topical Lidocaine (%) 4 4 -Lidocaine (ml) 5 5 -Bleeding Controlled with Pressure NA -Treatment Response Procedure Procedure Tolerated Well Tolerated Well Pain Scale: 0-10 Numeric Is Patient Pain Free? Yes Yes Laterality: Right - Groin Type of Debridement: Excisional debridement Anesthesia Used: 4% Lidocaine Solution Depth: Down to and including healthy tissue, in the subcutaneous layer Percentage of wound debrided: 100 Instrument Used: 5mm curette Severity: Fat Layer Exposed Amount of bleeding with debridement: Mild Bleeding Controlled with: Compression and gauze Patient tolerated procedure well - Additional Wound Laterality: Right - Medial thigh Type of Debridement: Excisional debridement Anesthesia Used: 4% Lidocaine Solution Depth: Down to and including healthy tissue, in the subcutaneous layer Percentage of wound debrided: 100 Instrument Used: 5mm curette Severity: Fat Layer Exposed Amount of bleeding with debridement: Mild Bleeding Controlled with: Compression and gauze Patient tolerated procedure: Patient tolerated procedure well Assessment/Plan Active Problems Ulcer of right groin (Chronic) Amputee, 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 In the 1970's, she was diagnosed with malignant melanoma of the right calf, with metastasis to lymph nodes in the right groin. She underwent excision of the melanoma with right groin lymphadenectomy. She was subsequently treated with a long series of radiation treatments to the right groin. As result, she has developed soft tissue radiation injury, and has previously been treated at our wound center in the past with a series of approximately 90 hyperbaric oxygen therapy treatments, in 2011. She presented at this time with recurrence of soft tissue radionecrosis in the right groin. Hyperbaric oxygen therapy treatments have been initiated, and the patient is undergoing hyperbaric oxygen therapy daily on weekdays. She is tolerating hyperbaric oxygen therapy well, without complaints or complications. She now has a newly discovered pressure ulceration on the right medial thigh, related to her prosthesis. Plan: We are to continue the use of collagenase Santyl topically on a daily basis, for both right lower extremity ulcerations. It is hoped that this will help with debridement of the fibrous and fibrotic material at the base of the patient's ulcerations. There has been mild improvement in recent weeks. The patient's right groin ulceration is located in an intertriginous zone, subjected to body heat and perspiration. Patient has been urged to keep the area clean and dry. Hyperbaric oxygen therapy is indicated due to the patient's diagnosis of soft tissue radionecrosis, and is to continue. We have renewed the order for an additional course of 20 HBO treatments, which is in accordance with the treatment protocol from the patient's past, which resulted in successful healing. We are to increase the patient's depth of the dives henceforth in an effort to enhance healing. Additionally, we are to seek the patient's past medical records from [facility] to determine her response to past treatment. This may offer clues as to optimizing current methods. We are to also seek consultation with Dr. Carlos, plastic surgeon, seeking his recommendations regarding possible surgical excision of the patient's ulcer/wound. There has been hesitance to do so thus far, given the irradiated field, and concerns regarding healing potential. Aggressive surgical excision and debridement of the area has been considered, but appears to be a less than optimal option. There would be concern as to the healing potential in the area involved, given that heavy doses of radiation have been rendered to this area in the past. Furthermore, a radical excision of the wound in this area had been previously considered several years ago, but the patient declined such intervention, and continues to prefer to avoid such a surgical approach. Recent cultures revealed rare growth of staph aureus. This may likely be skin contamination, and likely not clinically significant. We are to use collagenase Santyl topically on the newly discovered ulceration on the right medial thigh. Consideration may be given in the near future to a biopsy of the right groin ulceration, to exclude the possibility of malignancy. The patient will return in 1 week for reassessment. Influenza vaccine was not administered today. Patient is not a smoker. She stands 5 feet 7 inches tall. She weighs 198 pounds. Her BMI is 31, which places her in a class I category. Weight loss has been recommended. She is to collaborate with her primary care physician in this regard.
--- NOTE | 2017-10-24 12:32 | HBO.PN.PCM_ITS ---
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 Progress: Patient appears to tolerating hyperbaric oxygen therapy well. Today' s session represents the 58th such session of hyperbaric oxygen therapy. Tolerance of hyperbaric oxygen therapy: Hyperbaric oxygen therapy was administered as per the facility's protocol. The patient tolerated hyperbaric oxygen therapy well, without complaints or complications. Upon emergence from the hyperbaric chamber, the patient's vital signs remained stable. The patient was discharged in good condition. 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 The patient's father at age of 79 with a history of cardiomyopathy. Smoking Status: Former smoker Tobacco Use: Non-smoker Physical Exam Vital Signs Temp Pulse Resp BP 97.9 F 83 18 149/51 H 10/24/17 10:18 10/24/17 10:18 10/24/17 10:18 10/24/17 10:18 General: Alert, Oriented x3, Cooperative, No apparent distress, Well developed, Well nourished HEENT: Atraumatic, PERRLA, EOMI, Normocephalic Lungs: Normal air movement Psych/Mental Status: Normal Affect, Appropriate, Alert and oriented to time, place, person, mood and affect Assessment/Plan Active Problems Ulcer of right groin (Chronic) Amputee, above knee (Chronic) Soft tissue radionecrosis (Chronic) soft tissue radiation injury (Chronic) Patient appears to be tolerating hyperbaric oxygen therapy well, which will be continued as per the patient's medical plan.
[2017-10-25 09:20] VITALS: BP 145/98; BP 147/91; PULSE 103; PULSE 89; RESP 16; TEMP 36.4; TEMP 36.7
--- NOTE | 2017-10-25 15:07 | PCM.HBO.PN ---
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 Progress: Patient appears to tolerating hyperbaric oxygen therapy well. Tolerance of hyperbaric oxygen therapy: Hyperbaric oxygen therapy was administered as per the facility's protocol. The patient tolerated hyperbaric oxygen therapy well, without complaints or complications. Upon emergence from the hyperbaric chamber, the patient's vital signs remained stable. The patient was discharged in good condition. 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 The patient's father at age of 79 with a history of cardiomyopathy. Smoking Status: Former smoker Tobacco Use: Non-smoker Physical Exam Vital Signs Temp Pulse Resp BP 98.1 F 89 16 145/98 H 10/25/17 09:20 10/25/17 09:20 10/25/17 09:20 10/25/17 09:20 General: Alert, Oriented x3, Cooperative, No apparent distress HEENT: Atraumatic, Normocephalic, TM's Clear Lungs: Normal air movement Psych/Mental Status: Normal Affect Assessment/Plan Active Problems Ulcer of right groin (Chronic) Amputee, above knee (Chronic) Soft tissue radionecrosis (Chronic) soft tissue radiation injury (Chronic) Patient appears to be tolerating hyperbaric oxygen therapy well, which will be continued as per the patient's medical plan.
--- NOTE | 2017-10-26 09:11 | PCM.HBO.PN ---
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 Progress: Patient appears to tolerating hyperbaric oxygen therapy well. Tolerance of hyperbaric oxygen therapy: Hyperbaric oxygen therapy was administered as per the facility's protocol. The patient tolerated hyperbaric oxygen therapy well, without complaints or complications. Upon emergence from the hyperbaric chamber, the patient's vital signs remained stable. The patient was discharged in good condition. 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 The patient's father at age of 79 with a history of cardiomyopathy. Smoking Status: Former smoker Tobacco Use: Non-smoker Physical Exam Vital Signs Temp Pulse Resp BP 98.1 F 89 16 145/98 H 10/25/17 09:20 10/25/17 09:20 10/25/17 09:20 10/25/17 09:20 General: Alert, Oriented x3, Cooperative, No apparent distress HEENT: Atraumatic, Normocephalic, TM's Clear Lungs: Normal air movement Cardiovascular: Regular rate Psych/Mental Status: Normal Affect Assessment/Plan Active Problems Ulcer of right groin (Chronic) Amputee, above knee (Chronic) Soft tissue radionecrosis (Chronic) soft tissue radiation injury (Chronic) Patient appears to be tolerating hyperbaric oxygen therapy well, which will be continued as per the patient's medical plan.
[2017-10-26 09:37] VITALS: BP 141/92; PULSE 82; RESP 16; TEMP 36.3; TEMP 36.5
[2017-10-31 10:16] VITALS: BP 164/91; PULSE 90; RESP 18; TEMP 36.4; BMI 68.3
--- NOTE | 2017-10-31 11:09 | HP.PCM_ITS ---
(1) History of uterine cancer Status: Chronic Current Visit: No Code(s): Z85.42 - Personal history of malignant neoplasm of other parts of uterus (2) History of melanoma Status: Chronic Current Visit: No Code(s): Z85.820 - Personal history of malignant melanoma of skin (3) Hyperlipidemia Status: Chronic Current Visit: No Code(s): E78.5 - Hyperlipidemia, unspecified (4) GERD (gastroesophageal reflux disease) Status: Chronic Current Visit: No Code(s): K21.9 - Gastro-esophageal reflux disease without esophagitis (5) Ulcer of right groin Status: Chronic Current Visit: Yes Qualifiers: Non-pressure ulcer stage: with fat layer exposed Code(s): L98.499 - Non-pressure chronic ulcer of skin of other sites with unspecified severity (6) Obesity (BMI 30.0-34.9) Status: Chronic Current Visit: No Code(s): E66.9 - Obesity, unspecified (7) Amputee, above knee Status: Chronic Current Visit: Yes Qualifiers: Laterality: right Code(s): Z89.619 - Acquired absence of unspecified leg above knee (8) Soft tissue radionecrosis Status: Chronic Current Visit: Yes Code(s): L59.8 - Other specified disorders of the skin and subcutaneous tissue related to radiation; Y84.2 - Radiological procedure and radiotherapy as the cause of abnormal reaction of the patient, or of later complication, without mention of misadventure at the time of the procedure (9) soft tissue radiation injury Status: Chronic Current Visit: Yes History of Present Illness Date of Service: 10/31/17 Chief Complaint: 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 The patient underwent excision of her melanoma with lymphadenectomy in the right groin. She also underwent lengthy radiation treatments at the [facility] in [place], [place]. Melanoma recurred, and the patient was subsequently treated with monoclonal antibodies in 1984. 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 Treatment included local ulcer care and hyperbaric oxygen therapy. She underwent a total of nearly 90 treatments of hyperbaric oxygen therapy. It is known that she tolerated the therapies well, and derived significant benefit. She relates no history of claustrophobia, or other complications related to the hyperbaric oxygen therapy treatments. She has no history of barotrauma to lungs , ears, etc. Her medical history has been reviewed, without any evidence of contraindications to hyperbaric oxygen therapy. Hyperbaric oxygen therapy has been reinitiated, and the patient is currently undergoing hyperbaric oxygen therapy in our facility on a daily basis. A recent wound culture was positive for Staphylococcus aureus, and Levaquin 500 mg p.o. daily has been prescribed for 10 days, and is completed. She is currently using collagenase Santyl topically to the wound in the right groin. She has undergone a total of 60 sessions of hyperbaric oxygen therapy, which is now on hold, awaiting re- authorization. The patient has another ulceration on the right medial thigh. It had been present, but had been concealed by the patient from the wound center staff. It appears to be due to pressure phenomenon, related to the patient's right lower extremity prosthesis. 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 She is undergone excision of melanoma from the right calf, with lymphadenectomy of the right groin in the 1969's. She subsequently required surgeries of the right thigh related to osteomyelitis, MRSA infection, and radiation injury to the right femoral artery. Ultimately, the patient required right above-knee amputation, performed in 2000. She also has a remote history of open reduction and internal fixation of a right ankle fracture. Allergies/Adverse Reactions: Allergies No Known Allergies Allergy (Verified 06/20/17 09:22) Home Medications: Ambulatory Orders Medication Instructions Recorded Famotidine 20 mg PO 06/20/17 Pravastatin [Pravachol] 20 mg PO DAILY 06/20/17 - Family History Maternal - - The patient's mother is 98 years of age and relatively healthy. The patient 's father at age of 79 with a history of cardiomyopathy. Smoking Status: Former smoker Tobacco Use: Non-smoker Review of Systems Constitutional: Denies: Chills, Fever, Weight Change Eyes: Denies: Pain, Vision Change HEENT: Denies: Difficulty Hearing, Difficulty Swallowing, Sinus Congestion Cardiovascular: Denies: Chest Pain, Palpitations Respiratory: Denies: Cough, Shortness of Breath Gastrointestinal: Denies: Diarrhea, Nausea, Vomiting Genitourinary: Denies: Dysuria, Hematuria Endocrine: Denies: Heat/ Cold Intolerance, Polydipsia, Polyuria Hematologic/ Lymphatic: Denies: Easy Bruising, Easy Bleeding - Physical Exam Vital Signs Temp Pulse Resp BP 97.5 F L 90 18 164/91 H 10/31/17 10:16 10/31/17 10:16 10/31/17 10:16 10/31/17 10:16 General: Alert, Oriented x3, Cooperative, No apparent distress, Well developed, Well nourished HEENT: Atraumatic, PERRLA, EOMI, Normocephalic Oral: Moist Mucosa Neck: No JVD Lungs: Normal air movement Abdomen: Non-Distended Extremities: No clubbing, No cyanosis, No edema, No Calf Tenderness, - - Patient has a right above-knee amputation. The right groin wound demonstrates slight improvement, with increasing areas of pink granulation tissue. Dimensions are documented elsewhere. There is no sign of infection or cellulitis. A second wound, on the right medial thigh, is pink and healthy in appearance. There is no sign of infection or cellulitis. Dimensions are documented elsewhere. There is moderate bioburden associated with the right groin ulceration, and only slight bioburden associated with the right medial thigh ulceration. Skin: No rashes Wound Measurements and Assessment WC - Nurse 1 - General Ulcer Measurement Start: 10/09/17 08:21 Freq: Status: Active Protocol: Activity Type Activity Date Activity User E-Sign Co-Sign Detail Recorded Client Recorded Date Recorded By Document 10/31/17 10:16 [id number] 10/31/17 10:20 TM 10/31/17 10:16 Wound Center Nurse 1 [Ulcer Assessment] 6-right medial thigh -Combined with other wound No -Current Size (cm) - Length 1.2 -Current Size (cm) - Width 1.4 -Current Size (cm) - Depth 0.1 -Total Square Cm 1.68 -Photo Taken No -Epithelialization None Present -Tunneling No -Undermining/Tunneling No -Circular Undermining No -Classification - Thickness Full Thickness without Exposed Support Structure -Exudate Amt Small (1-33%) -Exudate Type Serosanguineous -Wound Margin Distinct, Outline Attached -Granulation Amt Large (67-100%) -Granulation Quality Red -Slough/Fibrin Yes -Necrosis Amt Small (1-33%) -Necrotic Tissue Type Adherent Slough -Structure Exposed Fascia Fat Layer Exposed -Moisture (Blanche-wound Skin Appearance No Abnormality ) -Color (Blanche-wound Skin Appearance) Erythema -Temperature (Blanche-wound Skin No Abnormality Appearance) (Pt Warm) -Tenderness on Palpation (Blanche-wound No Skin Appearance) -Ulcer Cleansing Rinsed/ Irrigated with Saline -Foul Odor after Cleansing No -Anesthetic Used 5% Lidocaine Gel #5 R Groin -Combined with other wound No -Current Size (cm) - Length 3.6 -Current Size (cm) - Width 0.6 -Current Size (cm) - Depth 0.5 -Total Square Cm 2.16 -Photo Taken No -Epithelialization None Present -Tunneling No -Undermining/Tunneling No -Circular Undermining No -Classification - Thickness Full Thickness without Exposed Support Structure -Exudate Amt Small (1-33%) -Exudate Type Serosanguineous -Wound Margin Fibrotic Scar, Thickened Scar -Granulation Amt None Present (0 %) -Granulation Quality N/A -Slough/Fibrin Yes -Necrosis Amt Large (67-100%) -Necrotic Tissue Type Adherent Slough -Structure Exposed Fascia Fat Layer Exposed -Texture (Blanche-wound Skin Appearance) Friable Scarring -Moisture (Blanche-wound Skin Appearance No Abnormality ) -Color (Blanche-wound Skin Appearance) Erythema -Temperature (Blanche-wound Skin No Abnormality Appearance) (Pt Warm) -Tenderness on Palpation (Blanche-wound No Skin Appearance) -Ulcer Cleansing Rinsed/ Irrigated with Saline -Foul Odor after Cleansing No -Anesthetic Used 5% Lidocaine Gel [Edema Assessment] -Lower Limb Edema Present No WC - Nurse 2 - General Ulcer CM Notes Start: 10/09/17 08:21 Freq: Status: Active Protocol: Activity Type Activity Date Activity User E-Sign Co-Sign Detail Recorded Client Recorded Date Recorded By Document 10/31/17 10:46 [email or web address] [id number] 10/31/17 10:48 HARDIK 10/31/17 10:46 Wound Center Nurse 2 [Procedure/Treatment] 6-right medial thigh -Time 10:47 -Correct Patient Yes -Correct Side, Site, Position Yes -Correct Procedure Yes -Procedure Performed Yes -Type of Procedure Debridement -Clinical Debridement Subcutaneous -Post Debridement Size (cm) - Length 1.2 -Post Debridement Size (cm) - Width 1.5 -Post Debridement Size (cm) - Depth 0.1 -Total Square Cm 1.80 -Wound/Ulcer Outcome Not Healed -Ulcer Cleansing Rinsed/ Irrigated with Saline -Foul Odor after Cleansing No -Bioengineered Tissue No -Bleeding Controlled with Pressure -Treatment Response Procedure Tolerated Well #5 R Groin -Time 10:47 -Correct Patient Yes -Correct Side, Site, Position Yes -Correct Procedure Yes -Procedure Performed Yes -Type of Procedure Debridement -Clinical Debridement Subcutaneous -Post Debridement Size (cm) - Length 3.6 -Post Debridement Size (cm) - Width 0.7 -Post Debridement Size (cm) - Depth 0.5 -Total Square Cm 2.52 -Wound/Ulcer Outcome Not Healed -Ulcer Cleansing Rinsed/ Irrigated with Saline -Foul Odor after Cleansing No -Bioengineered Tissue No -Bleeding Controlled with Pressure -Treatment Response Procedure Tolerated Well [See Physician Procedure note for Specifics] Pain Scale: 0-10 Numeric [Pain] -Is Patient Pain Free? Yes Neurological: Cranial nerves II-XII grossly intact, Neuro grossly intact Psych/Mental Status: Normal Affect, Appropriate, Alert and oriented to time, place, person, mood and affect Debridement Note Post-Debridement Measurements/Treatment WC - Nurse 2 - General Ulcer CM Notes Start: 10/09/17 08:21 Freq: Status: Active Protocol: Activity Type Activity Date Activity User E-Sign Co-Sign Detail Recorded Client Recorded Date Recorded By Document 10/17/17 11:20 JS [id number] 10/17/17 11:26 JS Document 10/24/17 11:27 JS [id number] 10/24/17 11:41 JS Document 10/31/17 10:46 JF [id number] 10/31/17 10:48 JF 10/17/17 10/24/17 10/31/17 11:20 11:27 10:46 Wound Center Nurse 2 6-right medial thigh -Time 11: 10:47 -Correct Patient Yes Yes -Correct Side, Site, Position Yes Yes -Correct Procedure Yes Yes -Procedure Performed Yes Yes -Type of Procedure Debridement Debridement -Clinical Debridement Subcutaneous Subcutaneous -Post Debridement Size (cm) - Length 1.1 1.2 -Post Debridement Size (cm) - Width 1.5 1.5 -Post Debridement Size (cm) - Depth 0.2 0.1 -Total Square Cm 1.65 1.80 -Wound/Ulcer Outcome Not Healed Not Healed -Ulcer Cleansing Rinsed/ Rinsed/ Irrigated with Irrigated with Saline Saline -Foul Odor after Cleansing No No -Bioengineered Tissue No No -Topical Lidocaine (%) 4 -Lidocaine (ml) 5 -Bleeding Controlled with NA Pressure -Treatment Response Procedure Procedure Tolerated Well Tolerated Well #5 R Groin -Time 11:20 11:27 10:47 -Correct Patient Yes Yes Yes -Correct Side, Site, Position Yes Yes Yes -Correct Procedure Yes Yes Yes -Procedure Performed Yes Yes Yes -Type of Procedure Debridement Debridement Debridement -Clinical Debridement Subcutaneous Subcutaneous Subcutaneous -Post Debridement Size (cm) - Length 3.5 3.9 3.6 -Post Debridement Size (cm) - Width 1.0 0.9 0.7 -Post Debridement Size (cm) - Depth 0.3 0.5 0.5 -Total Square Cm 3.50 3.51 2.52 -Wound/Ulcer Outcome Not Healed Not Healed Not Healed -Ulcer Cleansing Rinsed/ Rinsed/ Rinsed/ Irrigated with Irrigated with Irrigated with Saline Saline Saline -Foul Odor after Cleansing No No No -Bioengineered Tissue No No No -Topical Lidocaine (%) 4 4 -Lidocaine (ml) 5 5 -Bleeding Controlled with Pressure NA Pressure -Treatment Response Procedure Procedure Procedure Tolerated Well Tolerated Well Tolerated Well Pain Scale: 0-10 Numeric Is Patient Pain Free? Yes Yes Yes Laterality: Right - Groin Type of Debridement: Excisional debridement Anesthesia Used: 4% Lidocaine Solution Depth: Down to and including healthy tissue, in the subcutaneous layer Percentage of wound debrided: 100 Instrument Used: 3mm curette Severity: Fat Layer Exposed Amount of bleeding with debridement: Mild Bleeding Controlled with: Compression and gauze Patient tolerated procedure well - Additional Wound Laterality: Right - Medial thigh Type of Debridement: Excisional debridement Anesthesia Used: 4% Lidocaine Solution Depth: Down to and including healthy tissue, in the subcutaneous layer Instrument Used: 3mm curette Severity: Fat Layer Exposed Amount of bleeding with debridement: Mild Bleeding Controlled with: Compression and gauze Patient tolerated procedure: Patient tolerated procedure well Assessment/Plan Active Problems Ulcer of right groin (Chronic) Amputee, 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 In the 1970's, she was diagnosed with malignant melanoma of the right calf, with metastasis to lymph nodes in the right groin. She underwent excision of the melanoma with right groin lymphadenectomy. She was subsequently treated with a long series of radiation treatments to the right groin. During the days of her radiation treatment, it is suspected that the radiation techniques were somewhat early in their evolution, and quite likely that the patient received massive doses of radiation exposure, exceeding doses which would be considered appropriate today , with techniques which are primitive by today's standards. As result, the patient has developed soft tissue radiation injury, and has previously been treated at our wound center in the past with a series of approximately 90 hyperbaric oxygen therapy treatments, in 2011. She presented with recurrence of soft tissue radionecrosis in the right groin. Hyperbaric oxygen therapy treatments have been initiated, and the patient has undergone a series of 60 hyperbaric oxygen treatment sessions. She has shown recent benefit from the hyperbaric oxygen treatments, and continued hyperbaric oxygen therapy is felt to be warranted. We are currently seeking reauthorization to continue hyperbaric oxygen therapy for at least 20-40 more sessions. She has tolerated hyperbaric oxygen therapy well, without complaints or complications. She now has a newly discovered pressure ulceration on the right medial thigh, related to pressure from her prosthesis. Plan: We are to continue the use of collagenase Santyl topically on a daily basis relative to the right groin ulceration. We will transition to the use of collagen hydrogel topically on a daily basis relative to the right medial thigh ulceration. There has been mild improvement in recent weeks. The patient's right groin ulceration is located in an intertriginous zone, subjected to body heat and perspiration. Patient has been urged to keep the area clean and dry. The patient is to avoid the use of her prosthesis, allowing for her pressure ulceration on the right medial thigh to heal. We are to also seek consultation with Dr. Carlos, plastic surgeon, seeking his recommendations regarding possible surgical excision and flap reconstruction of the patient's ulcer/wound. There has been hesitance to do so thus far, given the irradiated field, and concerns regarding healing potential. Aggressive surgical excision and debridement of the area has been considered, but appears to be a less than optimal option. There would be concern as to the healing potential in the area involved, given that heavy doses of radiation have been rendered to this area in the past. Furthermore, a radical excision of the wound in this area had been previously considered several years ago, but the patient declined such intervention, and continues to prefer to avoid such a surgical approach. Consideration may be given in the near future to a biopsy of the right groin ulceration, to exclude the possibility of malignancy. The patient will return in 1 week for reassessment. We await preauthorization of additional hyperbaric oxygen treatments. Influenza vaccine was not administered today. Patient is not a smoker. She stands 5 feet 7 inches tall. She weighs 198 pounds. Her BMI is 31 , which places her in a class I category. Weight loss has been recommended. She is to collaborate with her primary care physician in this regard.
== END 2017-11-06 23:59 ==
LOC: WC 10:00
PROVIDERS: Family Provider Family Medicine; PCP Family Medicine; Visit Provider Surgery
DX: L59.8 Other specified disorders of the skin and subcutaneous tissue related to radiation (principal); L98.492 Non-pressure chronic ulcer of skin of other sites with fat layer exposed; L97.112 Non-pressure chronic ulcer of right thigh with fat layer exposed; Y84.2 Radiological procedure and radiotherapy as the cause of abnormal reaction of the patient, or of later complication, without mention of misadventure at the time of the procedure; Z89.619 Acquired absence of unspecified leg above knee; E66.9 Obesity, unspecified; E78.5 Hyperlipidemia, unspecified; K21.9 Gastro-esophageal reflux disease without esophagitis; Z85.820 Personal history of malignant melanoma of skin; Z85.42 Personal history of malignant neoplasm of other parts of uterus; Z87.891 Personal history of nicotine dependence; Z68.31 Body mass index [BMI] 31.0-31.9, adult
CPT/HCPCS: 11042; 99183; 99211; G0277; G0463

== ENCOUNTER 2017-12-07 09:00 | Outpatient (RCR) | payer OTHER, SELFPAY ==
[2017-11-07 00:33] VITALS: BP 134/73; PULSE 90; RESP 18; TEMP 36.4; BMI 68.3
[2017-11-07 08:15] VITALS: BP 123/96; BP 153/87; PULSE 83; PULSE 92; RESP 16; TEMP 36.6
[2017-11-07 10:28] VITALS: BP 153/87; PULSE 83; RESP 16; TEMP 36.6; BMI 68.3
--- NOTE | 2017-11-07 12:15 | PCM.WC.HP ---
(1) History of uterine cancer Status: Chronic Current Visit: No Code(s): Z85.42 - Personal history of malignant neoplasm of other parts of uterus (2) History of melanoma Status: Chronic Current Visit: Yes Code(s): Z85.820 - Personal history of malignant melanoma of skin (3) Hyperlipidemia Status: Chronic Current Visit: No Code(s): E78.5 - Hyperlipidemia, unspecified (4) GERD (gastroesophageal reflux disease) Status: Chronic Current Visit: No Code(s): K21.9 - Gastro-esophageal reflux disease without esophagitis (5) Ulcer of right groin Status: Chronic Current Visit: Yes Qualifiers: Non-pressure ulcer stage: with fat layer exposed Code(s): L98.499 - Non-pressure chronic ulcer of skin of other sites with unspecified severity (6) Obesity (BMI 30.0-34.9) Status: Chronic Current Visit: No Code(s): E66.9 - Obesity, unspecified (7) Amputee, above knee Status: Chronic Current Visit: No Qualifiers: Code(s): Z89.619 - Acquired absence of unspecified leg above knee (8) Soft tissue radionecrosis Status: Chronic Current Visit: Yes Code(s): L59.8 - Other specified disorders of the skin and subcutaneous tissue related to radiation; Y84.2 - Radiological procedure and radiotherapy as the cause of abnormal reaction of the patient, or of later complication, without mention of misadventure at the time of the procedure (9) soft tissue radiation injury Status: Chronic Current Visit: Yes History of Present Illness Date of Service: 11/07/17 Chief Complaint: 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 The patient underwent excision of her melanoma with lymphadenectomy in the right groin. She also underwent lengthy radiation treatments at the [facility] in [place], [place]. Melanoma recurred, and the patient was subsequently treated with monoclonal antibodies in 1984. 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 Treatment included local ulcer care and hyperbaric oxygen therapy. She underwent a total of nearly 90 treatments of hyperbaric oxygen therapy. It is known that she tolerated the therapies well, and derived significant benefit. She relates no history of claustrophobia, or other complications related to the hyperbaric oxygen therapy treatments. She has no history of barotrauma to lungs, ears, etc. Her medical history has been reviewed, without any evidence of contraindications to hyperbaric oxygen therapy. Hyperbaric oxygen therapy has been reinitiated, and the patient is currently undergoing hyperbaric oxygen therapy in our facility on a daily basis. She is currently using collagenase Santyl topically to the wound in the right groin. She has undergone a total of 60 sessions of hyperbaric oxygen therapy. We are to continue with hyperbaric oxygen therapy, which is felt to be clinically warranted. The patient's history suggests that the right groin wound in the past responded to hyperbaric oxygen therapy, but required 90 such sessions. It appears as though the patient's current clinical course is mimicking that of the past, and additional hyperbaric oxygen therapy sessions, up to a total of 90, is felt to be warranted. She also has a superficial ulceration on the right medial thigh. It had been present, but had been concealed by the patient from the wound center staff. It appears to be due to pressure phenomenon, related to the patient's right lower extremity prosthesis. We are treating this ulceration with collagen hydrogel topically on a daily basis, and offloading measures. The patient has abandoned her prosthesis for the time being. 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 She is undergone excision of melanoma from the right calf, with lymphadenectomy of the right groin in the 1969's. She subsequently required surgeries of the right thigh related to osteomyelitis, MRSA infection, and radiation injury to the right femoral artery. Ultimately, the patient required right above-knee amputation, performed in 2000. She also has a remote history of open reduction and internal fixation of a right ankle fracture. Allergies/Adverse Reactions: Allergies No Known Allergies Allergy (Verified 06/20/17 09:22) Home Medications: Ambulatory Orders Medication Instructions Recorded Famotidine 20 mg PO 06/20/17 Pravastatin [Pravachol] 20 mg PO DAILY 06/20/17 - Family History Maternal - - The patient's mother is 98 years of age and relatively healthy. The patient's father at age of 79 with a history of cardiomyopathy. Smoking Status: Former smoker Tobacco Use: Non-smoker Review of Systems Constitutional: Denies: Chills, Fever, Weight Change Eyes: Denies: Pain, Vision Change HEENT: Denies: Difficulty Hearing, Difficulty Swallowing, Sinus Congestion Cardiovascular: Denies: Chest Pain, Palpitations Respiratory: Denies: Cough, Shortness of Breath Gastrointestinal: Denies: Diarrhea, Nausea, Vomiting Genitourinary: Denies: Dysuria, Hematuria Endocrine: Denies: Heat/ Cold Intolerance, Polydipsia, Polyuria Hematologic/ Lymphatic: Denies: Easy Bruising, Easy Bleeding - Physical Exam Vital Signs Temp Pulse Resp BP 97.8 F 83 16 153/87 H 11/07/17 10:28 11/07/17 10:28 11/07/17 10:28 11/07/17 10:28 General: Alert, Oriented x3, Cooperative, No apparent distress, Well developed, Well nourished HEENT: Atraumatic, PERRLA, EOMI, Normocephalic Oral: Moist Mucosa Neck: No JVD Lungs: Normal air movement Abdomen: Non-Distended Extremities: No clubbing, No cyanosis, No edema, No Calf Tenderness, - - The ulceration of the right medial calf is improved. It is smaller in size. Dimensions are documented elsewhere. There is evidence of peripheral epithelialization. The radiationrelated wound of the right groin is little changed in size, but there are increasing areas of granulation tissue. In this regard, there has been improvement. There is no sign of infection or cellulitis. Dimensions are documented elsewhere. A right above-knee amputation is noted. Wound Measurements and Assessment WC - Nurse 1 - General Ulcer Measurement Start: 05/01/18 08:15 Freq: Status: Active Protocol: Activity Type Activity Date Activity User E-Sign Co-Sign Detail Recorded Client Recorded Date Recorded By Document 11/07/17 10:28 [facility] [id number] 11/07/17 10:35 [facility] 11/07/17 10:28 Wound Center Nurse 1 [Ulcer Assessment] 6-right medial thigh -Combined with other wound No -Current Size (cm) - Length 0.1 -Current Size (cm) - Width 0.2 -Current Size (cm) - Depth 0.1 -Total Square Cm 0.02 -Epithelialization Medium 34-66% -Tunneling No -Undermining/Tunneling No -Circular Undermining No -Exudate Amt Small (1-33%) -Exudate Type Serous -Wound Margin Distinct, Outline Attached -Granulation Amt Large (67-100%) -Granulation Quality Red -Slough/Fibrin No -Necrosis Amt None Present (0 %) -Structure Exposed None/Limited to Skin Breakdown -Texture (Blanche-wound Skin Appearance) Scarring -Moisture (Blanche-wound Skin Appearance Dry/Scaly ) -Color (Blanche-wound Skin Appearance) Assessed -Temperature (Blanche-wound Skin No Abnormality Appearance) (Pt Warm) -Tenderness on Palpation (Blanche-wound No Skin Appearance) -Ulcer Cleansing Rinsed/ Irrigated with Saline -Foul Odor after Cleansing No -Anesthetic Used 5% Lidocaine Gel #5 R Groin -Combined with other wound No -Current Size (cm) - Length 3.5 -Current Size (cm) - Width 0.9 -Current Size (cm) - Depth 0.4 -Total Square Cm 3.15 -Photo Taken No -Epithelialization None Present -Tunneling No -Undermining/Tunneling No -Circular Undermining No -Exudate Amt Large (67-100%) -Exudate Type Serous -Wound Margin Distinct, Outline Attached -Granulation Amt Small (1-33%) -Granulation Quality Red -Slough/Fibrin Yes -Necrosis Amt Large (67-100%) -Necrotic Tissue Type Adherent Slough -Texture (Blanche-wound Skin Appearance) Scarring -Moisture (Blanche-wound Skin Appearance Dry/Scaly ) -Color (Blanche-wound Skin Appearance) Assessed -Temperature (Blanche-wound Skin No Abnormality Appearance) (Pt Warm) -Tenderness on Palpation (Blanche-wound No Skin Appearance) -Ulcer Cleansing Rinsed/ Irrigated with Saline -Foul Odor after Cleansing No -Anesthetic Used 5% Lidocaine Gel WC - Nurse 2 - General Ulcer CM Notes Start: 11/07/17 08:15 Freq: Status: Active Protocol: Activity Type Activity Date Activity User E-Sign Co-Sign Detail Recorded Client Recorded Date Recorded By Document 11/07/17 11:55 KEILA [id number] 11/07/17 12:12 KEILA 11/07/17 11:55 Wound Center Nurse 2 [Procedure/Treatment] 6-right medial thigh -Time 11:56 -Correct Patient Yes -Correct Side, Site, Position Yes -Correct Procedure Yes -Procedure Performed Yes -Type of Procedure Debridement -Clinical Debridement Subcutaneous -Post Debridement Size (cm) - Length 0.3 -Post Debridement Size (cm) - Width 0.3 -Post Debridement Size (cm) - Depth 0.1 -Total Square Cm 0.09 -Wound/Ulcer Outcome Not Healed -Ulcer Cleansing Rinsed/ Irrigated with Saline -Foul Odor after Cleansing No -Bioengineered Tissue No -Topical Lidocaine (%) 4 -Lidocaine (ml) 5 -Bleeding Controlled with NA -Treatment Response Procedure Tolerated Well #5 R Groin -Time 11:56 -Correct Patient Yes -Correct Side, Site, Position Yes -Correct Procedure Yes -Procedure Performed Yes -Type of Procedure Debridement -Clinical Debridement Subcutaneous -Post Debridement Size (cm) - Length 3.5 -Post Debridement Size (cm) - Width 1.0 -Post Debridement Size (cm) - Depth 0.5 -Total Square Cm 3.50 -Wound/Ulcer Outcome Not Healed -Ulcer Cleansing Rinsed/ Irrigated with Saline -Foul Odor after Cleansing No -Bioengineered Tissue No -Topical Lidocaine (%) 4 -Lidocaine (ml) 5 -Bleeding Controlled with NA -Treatment Response Procedure Tolerated Well [See Physician Procedure note for Specifics] Pain Scale: 0-10 Numeric [Pain] -Is Patient Pain Free? Yes Neurological: Cranial nerves II-XII grossly intact, Neuro grossly intact Psych/Mental Status: Normal Affect, Appropriate, Alert and oriented to time, place, person, mood and affect Debridement Note Post-Debridement Measurements/Treatment WC - Nurse 2 - General Ulcer CM Notes Start: 11/07/17 08:15 Freq: Status: Active Protocol: Activity Type Activity Date Activity User E-Sign Co-Sign Detail Recorded Client Recorded Date Recorded By Document 11/07/17 11:55 KEILA [id number] 11/07/17 12:12 KEILA 11/07/17 11:55 Wound Center Nurse 2 6-right medial thigh -Time 11:56 -Correct Patient Yes -Correct Side, Site, Position Yes -Correct Procedure Yes -Procedure Performed Yes -Type of Procedure Debridement -Clinical Debridement Subcutaneous -Post Debridement Size (cm) - Length 0.3 -Post Debridement Size (cm) - Width 0.3 -Post Debridement Size (cm) - Depth 0.1 -Total Square Cm 0.09 -Wound/Ulcer Outcome Not Healed -Ulcer Cleansing Rinsed/ Irrigated with Saline -Foul Odor after Cleansing No -Bioengineered Tissue No -Topical Lidocaine (%) 4 -Lidocaine (ml) 5 -Bleeding Controlled with NA -Treatment Response Procedure Tolerated Well #5 R Groin -Time 11:56 -Correct Patient Yes -Correct Side, Site, Position Yes -Correct Procedure Yes -Procedure Performed Yes -Type of Procedure Debridement -Clinical Debridement Subcutaneous -Post Debridement Size (cm) - Length 3.5 -Post Debridement Size (cm) - Width 1.0 -Post Debridement Size (cm) - Depth 0.5 -Total Square Cm 3.50 -Wound/Ulcer Outcome Not Healed -Ulcer Cleansing Rinsed/ Irrigated with Saline -Foul Odor after Cleansing No -Bioengineered Tissue No -Topical Lidocaine (%) 4 -Lidocaine (ml) 5 -Bleeding Controlled with NA -Treatment Response Procedure Tolerated Well Pain Scale: 0-10 Numeric Is Patient Pain Free? 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 In the 1970's, she was diagnosed with malignant melanoma of the right calf, with metastasis to lymph nodes in the right groin. She underwent excision of the melanoma with right groin lymphadenectomy. She was subsequently treated with a long series of radiation treatments to the right groin. During the days of her radiation treatment, it is suspected that the radiation techniques were somewhat early in their evolution, and quite likely that the patient received massive doses of radiation exposure, exceeding doses which would be considered appropriate today, with techniques which are primitive by today's standards. As result, the patient has developed soft tissue radiation injury, and has previously been treated at our wound center in the past with a series of approximately 90 hyperbaric oxygen therapy treatments, in 2011. She presented with recurrence of soft tissue radionecrosis in the right groin. Hyperbaric oxygen therapy treatments have been initiated, and the patient has undergone a series of 60 hyperbaric oxygen treatment sessions. She has shown recent benefit from the hyperbaric oxygen treatments, and continued hyperbaric oxygen therapy is felt to be warranted. We are to continue with additional hyperbaric oxygen therapy, felt to be clinically warranted, and in accordance with the patient's past history, in which wound healing was effected only after 90 such sessions. She has tolerated hyperbaric oxygen therapy well, without complaints or complications. She now has a newly discovered pressure ulceration on the right medial thigh, related to pressure from her prosthesis. Plan: We are to continue the use of collagenase Santyl topically on a daily basis relative to the right groin ulceration. We will continue the use of collagen hydrogel topically on a daily basis relative to the right medial thigh ulceration. There has been mild improvement in recent weeks. The patient's right groin ulceration is located in an intertriginous zone, subjected to body heat and perspiration. Patient has been urged to keep the area clean and dry. The patient is to avoid the use of her prosthesis, allowing for her pressure ulceration on the right medial thigh to heal. We are to also seek consultation with Dr. Carlos, plastic surgeon, seeking his recommendations regarding possible surgical excision and flap reconstruction of the patient's ulcer/wound. There has been hesitance to do so thus far, given the irradiated field, and concerns regarding healing potential. Aggressive surgical excision and debridement of the area has been considered, but appears to be a less than optimal option. There would be concern as to the healing potential in the area involved, given that heavy doses of radiation have been rendered to this area in the past. Furthermore, a radical excision of the wound in this area had been previously considered several years ago, but the patient declined such intervention, and continues to prefer to avoid such a surgical approach. Consideration may be given in the near future to a biopsy of the right groin ulceration, to exclude the possibility of malignancy. The patient will return in 1 week for reassessment. Hyperbaric oxygen therapy is to be continued. Influenza vaccine was not administered today. Patient is not a smoker. She stands 5 feet 7 inches tall. She weighs 198 pounds. Her BMI is 31, which places her in a class I category. Weight loss has been recommended. She is to collaborate with her primary care physician in this regard.
--- NOTE | 2017-11-07 12:22 | HP.PCM_ITS ---
(1) History of uterine cancer Status: Chronic Current Visit: No Code(s): Z85.42 - Personal history of malignant neoplasm of other parts of uterus (2) History of melanoma Status: Chronic Current Visit: Yes Code(s): Z85.820 - Personal history of malignant melanoma of skin (3) Hyperlipidemia Status: Chronic Current Visit: No Code(s): E78.5 - Hyperlipidemia, unspecified (4) GERD (gastroesophageal reflux disease) Status: Chronic Current Visit: No Code(s): K21.9 - Gastro-esophageal reflux disease without esophagitis (5) Ulcer of right groin Status: Chronic Current Visit: Yes Qualifiers: Non-pressure ulcer stage: with fat layer exposed Code(s): L98.499 - Non-pressure chronic ulcer of skin of other sites with unspecified severity (6) Obesity (BMI 30.0-34.9) Status: Chronic Current Visit: No Code(s): E66.9 - Obesity, unspecified (7) Amputee, above knee Status: Chronic Current Visit: No Qualifiers: Code(s): Z89.619 - Acquired absence of unspecified leg above knee (8) Soft tissue radionecrosis Status: Chronic Current Visit: Yes Code(s): L59.8 - Other specified disorders of the skin and subcutaneous tissue related to radiation; Y84.2 - Radiological procedure and radiotherapy as the cause of abnormal reaction of the patient, or of later complication, without mention of misadventure at the time of the procedure (9) soft tissue radiation injury Status: Chronic Current Visit: Yes History of Present Illness Date of Service: 11/07/17 Chief Complaint: 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 The patient underwent excision of her melanoma with lymphadenectomy in the right groin. She also underwent lengthy radiation treatments at the [facility] in [place], [place]. Melanoma recurred, and the patient was subsequently treated with monoclonal antibodies in 1984. 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 Treatment included local ulcer care and hyperbaric oxygen therapy. She underwent a total of nearly 90 treatments of hyperbaric oxygen therapy. It is known that she tolerated the therapies well, and derived significant benefit. She relates no history of claustrophobia, or other complications related to the hyperbaric oxygen therapy treatments. She has no history of barotrauma to lungs , ears, etc. Her medical history has been reviewed, without any evidence of contraindications to hyperbaric oxygen therapy. Hyperbaric oxygen therapy has been reinitiated, and the patient is currently undergoing hyperbaric oxygen therapy in our facility on a daily basis. She is currently using collagenase Santyl topically to the wound in the right groin. She has undergone a total of 60 sessions of hyperbaric oxygen therapy. We are to continue with hyperbaric oxygen therapy, which is felt to be clinically warranted. The patient's history suggests that the right groin wound in the past responded to hyperbaric oxygen therapy, but required 90 such sessions. It appears as though the patient' s current clinical course is mimicking that of the past, and additional hyperbaric oxygen therapy sessions, up to a total of 90, is felt to be warranted. She also has a superficial ulceration on the right medial thigh. It had been present, but had been concealed by the patient from the wound center staff. It appears to be due to pressure phenomenon, related to the patient's right lower extremity prosthesis. We are treating this ulceration with collagen hydrogel topically on a daily basis, and offloading measures. The patient has abandoned her prosthesis for the time being. 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 She is undergone excision of melanoma from the right calf, with lymphadenectomy of the right groin in the 1969's. She subsequently required surgeries of the right thigh related to osteomyelitis, MRSA infection, and radiation injury to the right femoral artery. Ultimately, the patient required right above-knee amputation, performed in 2000. She also has a remote history of open reduction and internal fixation of a right ankle fracture. Allergies/Adverse Reactions: Allergies No Known Allergies Allergy (Verified 06/20/17 09:22) Home Medications: Ambulatory Orders Medication Instructions Recorded Famotidine 20 mg PO 06/20/17 Pravastatin [Pravachol] 20 mg PO DAILY 06/20/17 - Family History Maternal - - The patient's mother is 98 years of age and relatively healthy. The patient 's father at age of 79 with a history of cardiomyopathy. Smoking Status: Former smoker Tobacco Use: Non-smoker Review of Systems Constitutional: Denies: Chills, Fever, Weight Change Eyes: Denies: Pain, Vision Change HEENT: Denies: Difficulty Hearing, Difficulty Swallowing, Sinus Congestion Cardiovascular: Denies: Chest Pain, Palpitations Respiratory: Denies: Cough, Shortness of Breath Gastrointestinal: Denies: Diarrhea, Nausea, Vomiting Genitourinary: Denies: Dysuria, Hematuria Endocrine: Denies: Heat/ Cold Intolerance, Polydipsia, Polyuria Hematologic/ Lymphatic: Denies: Easy Bruising, Easy Bleeding - Physical Exam Vital Signs Temp Pulse Resp BP 97.8 F 83 16 153/87 H 11/07/17 10:28 11/07/17 10:28 11/07/17 10:28 11/07/17 10:28 General: Alert, Oriented x3, Cooperative, No apparent distress, Well developed, Well nourished HEENT: Atraumatic, PERRLA, EOMI, Normocephalic Oral: Moist Mucosa Neck: No JVD Lungs: Normal air movement Abdomen: Non-Distended Extremities: No clubbing, No cyanosis, No edema, No Calf Tenderness, - - The ulceration of the right medial calf is improved. It is smaller in size. Dimensions are documented elsewhere. There is evidence of peripheral epithelialization. The radiation?related wound of the right groin is little changed in size, but there are increasing areas of granulation tissue. In this regard, there has been improvement. There is no sign of infection or cellulitis. Dimensions are documented elsewhere. A right above-knee amputation is noted. Wound Measurements and Assessment WC - Nurse 1 - General Ulcer Measurement Start: 11/07/17 08:15 Freq: Status: Active Protocol: Activity Type Activity Date Activity User E-Sign Co-Sign Detail Recorded Client Recorded Date Recorded By Document 11/07/17 10:28 [facility] [id number] 11/07/17 10:35 [facility] 11/07/17 10:28 Wound Center Nurse 1 [Ulcer Assessment] 6-right medial thigh -Combined with other wound No -Current Size (cm) - Length 0.1 -Current Size (cm) - Width 0.2 -Current Size (cm) - Depth 0.1 -Total Square Cm 0.02 -Epithelialization Medium 34-66% -Tunneling No -Undermining/Tunneling No -Circular Undermining No -Exudate Amt Small (1-33%) -Exudate Type Serous -Wound Margin Distinct, Outline Attached -Granulation Amt Large (67-100%) -Granulation Quality Red -Slough/Fibrin No -Necrosis Amt None Present (0 %) -Structure Exposed None/Limited to Skin Breakdown -Texture (Blanche-wound Skin Appearance) Scarring -Moisture (Blanche-wound Skin Appearance Dry/Scaly ) -Color (Blanche-wound Skin Appearance) Assessed -Temperature (Blanche-wound Skin No Abnormality Appearance) (Pt Warm) -Tenderness on Palpation (Blanche-wound No Skin Appearance) -Ulcer Cleansing Rinsed/ Irrigated with Saline -Foul Odor after Cleansing No -Anesthetic Used 5% Lidocaine Gel #5 R Groin -Combined with other wound No -Current Size (cm) - Length 3.5 -Current Size (cm) - Width 0.9 -Current Size (cm) - Depth 0.4 -Total Square Cm 3.15 -Photo Taken No -Epithelialization None Present -Tunneling No -Undermining/Tunneling No -Circular Undermining No -Exudate Amt Large (67-100%) -Exudate Type Serous -Wound Margin Distinct, Outline Attached -Granulation Amt Small (1-33%) -Granulation Quality Red -Slough/Fibrin Yes -Necrosis Amt Large (67-100%) -Necrotic Tissue Type Adherent Slough -Texture (Blanche-wound Skin Appearance) Scarring -Moisture (Blanche-wound Skin Appearance Dry/Scaly ) -Color (Blanche-wound Skin Appearance) Assessed -Temperature (Blanche-wound Skin No Abnormality Appearance) (Pt Warm) -Tenderness on Palpation (Blanche-wound No Skin Appearance) -Ulcer Cleansing Rinsed/ Irrigated with Saline -Foul Odor after Cleansing No -Anesthetic Used 5% Lidocaine Gel WC - Nurse 2 - General Ulcer CM Notes Start: 11/07/17 08:15 Freq: Status: Active Protocol: Activity Type Activity Date Activity User E-Sign Co-Sign Detail Recorded Client Recorded Date Recorded By Document 11/07/17 11:55 KEIL[facility] [id number] 11/07/17 12:12 KEILA 11/07/17 11:55 Wound Center Nurse 2 [Procedure/Treatment] 6-right medial thigh -Time 11:56 -Correct Patient Yes -Correct Side, Site, Position Yes -Correct Procedure Yes -Procedure Performed Yes -Type of Procedure Debridement -Clinical Debridement Subcutaneous -Post Debridement Size (cm) - Length 0.3 -Post Debridement Size (cm) - Width 0.3 -Post Debridement Size (cm) - Depth 0.1 -Total Square Cm 0.09 -Wound/Ulcer Outcome Not Healed -Ulcer Cleansing Rinsed/ Irrigated with Saline -Foul Odor after Cleansing No -Bioengineered Tissue No -Topical Lidocaine (%) 4 -Lidocaine (ml) 5 -Bleeding Controlled with NA -Treatment Response Procedure Tolerated Well #5 R Groin -Time 11:56 -Correct Patient Yes -Correct Side, Site, Position Yes -Correct Procedure Yes -Procedure Performed Yes -Type of Procedure Debridement -Clinical Debridement Subcutaneous -Post Debridement Size (cm) - Length 3.5 -Post Debridement Size (cm) - Width 1.0 -Post Debridement Size (cm) - Depth 0.5 -Total Square Cm 3.50 -Wound/Ulcer Outcome Not Healed -Ulcer Cleansing Rinsed/ Irrigated with Saline -Foul Odor after Cleansing No -Bioengineered Tissue No -Topical Lidocaine (%) 4 -Lidocaine (ml) 5 -Bleeding Controlled with NA -Treatment Response Procedure Tolerated Well [See Physician Procedure note for Specifics] Pain Scale: 0-10 Numeric [Pain] -Is Patient Pain Free? Yes Neurological: Cranial nerves II-XII grossly intact, Neuro grossly intact Psych/Mental Status: Normal Affect, Appropriate, Alert and oriented to time, place, person, mood and affect Debridement Note Post-Debridement Measurements/Treatment WC - Nurse 2 - General Ulcer CM Notes Start: 11/07/17 08:15 Freq: Status: Active Protocol: Activity Type Activity Date Activity User E-Sign Co-Sign Detail Recorded Client Recorded Date Recorded By Document 11/07/17 11:55 KEILA [id number] 11/07/17 12:12 KEILA 11/07/17 11:55 Wound Center Nurse 2 6-right medial thigh -Time 11:56 -Correct Patient Yes -Correct Side, Site, Position Yes -Correct Procedure Yes -Procedure Performed Yes -Type of Procedure Debridement -Clinical Debridement Subcutaneous -Post Debridement Size (cm) - Length 0.3 -Post Debridement Size (cm) - Width 0.3 -Post Debridement Size (cm) - Depth 0.1 -Total Square Cm 0.09 -Wound/Ulcer Outcome Not Healed -Ulcer Cleansing Rinsed/ Irrigated with Saline -Foul Odor after Cleansing No -Bioengineered Tissue No -Topical Lidocaine (%) 4 -Lidocaine (ml) 5 -Bleeding Controlled with NA -Treatment Response Procedure Tolerated Well #5 R Groin -Time 11:56 -Correct Patient Yes -Correct Side, Site, Position Yes -Correct Procedure Yes -Procedure Performed Yes -Type of Procedure Debridement -Clinical Debridement Subcutaneous -Post Debridement Size (cm) - Length 3.5 -Post Debridement Size (cm) - Width 1.0 -Post Debridement Size (cm) - Depth 0.5 -Total Square Cm 3.50 -Wound/Ulcer Outcome Not Healed -Ulcer Cleansing Rinsed/ Irrigated with Saline -Foul Odor after Cleansing No -Bioengineered Tissue No -Topical Lidocaine (%) 4 -Lidocaine (ml) 5 -Bleeding Controlled with NA -Treatment Response Procedure Tolerated Well Pain Scale: 0-10 Numeric Is Patient Pain Free? 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 In the 1970's, she was diagnosed with malignant melanoma of the right calf, with metastasis to lymph nodes in the right groin. She underwent excision of the melanoma with right groin lymphadenectomy. She was subsequently treated with a long series of radiation treatments to the right groin. During the days of her radiation treatment, it is suspected that the radiation techniques were somewhat early in their evolution, and quite likely that the patient received massive doses of radiation exposure, exceeding doses which would be considered appropriate today , with techniques which are primitive by today's standards. As result, the patient has developed soft tissue radiation injury, and has previously been treated at our wound center in the past with a series of approximately 90 hyperbaric oxygen therapy treatments, in 2011. She presented with recurrence of soft tissue radionecrosis in the right groin. Hyperbaric oxygen therapy treatments have been initiated, and the patient has undergone a series of 60 hyperbaric oxygen treatment sessions. She has shown recent benefit from the hyperbaric oxygen treatments, and continued hyperbaric oxygen therapy is felt to be warranted. We are to continue with additional hyperbaric oxygen therapy, felt to be clinically warranted, and in accordance with the patient's past history, in which wound healing was effected only after 90 such sessions. She has tolerated hyperbaric oxygen therapy well, without complaints or complications. She now has a newly discovered pressure ulceration on the right medial thigh, related to pressure from her prosthesis. Plan: We are to continue the use of collagenase Santyl topically on a daily basis relative to the right groin ulceration. We will continue the use of collagen hydrogel topically on a daily basis relative to the right medial thigh ulceration. There has been mild improvement in recent weeks. The patient's right groin ulceration is located in an intertriginous zone, subjected to body heat and perspiration. Patient has been urged to keep the area clean and dry. The patient is to avoid the use of her prosthesis, allowing for her pressure ulceration on the right medial thigh to heal. We are to also seek consultation with Dr. Carlos, plastic surgeon, seeking his recommendations regarding possible surgical excision and flap reconstruction of the patient's ulcer/wound. There has been hesitance to do so thus far, given the irradiated field, and concerns regarding healing potential. Aggressive surgical excision and debridement of the area has been considered, but appears to be a less than optimal option. There would be concern as to the healing potential in the area involved, given that heavy doses of radiation have been rendered to this area in the past. Furthermore, a radical excision of the wound in this area had been previously considered several years ago, but the patient declined such intervention, and continues to prefer to avoid such a surgical approach. Consideration may be given in the near future to a biopsy of the right groin ulceration, to exclude the possibility of malignancy. The patient will return in 1 week for reassessment. Hyperbaric oxygen therapy is to be continued. Influenza vaccine was not administered today. Patient is not a smoker. She stands 5 feet 7 inches tall. She weighs 198 pounds. Her BMI is 31, which places her in a class I category. Weight loss has been recommended. She is to collaborate with her primary care physician in this regard.
--- NOTE | 2017-11-07 12:55 | PCM.HBO.PN ---
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 Progress: The patient appears to be tolerating hyperbaric oxygen therapy well. Today's session represents the 61st such session. Tolerance of hyperbaric oxygen therapy: Hyperbaric oxygen therapy was administered as per the facility's protocol. Hyperbaric oxygen therapy was tolerated well, without complaints or complications. Upon emergence from the hyperbaric chamber, the patient's vital signs remained stable. She was discharged in good condition. 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 The patient's father at age of 79 with a history of cardiomyopathy. Smoking Status: Former smoker Tobacco Use: Non-smoker Physical Exam Vital Signs Temp Pulse Resp BP 97.8 F 83 16 153/87 H 11/07/17 10:28 11/07/17 10:28 11/07/17 10:28 11/07/17 10:28 General: Alert, Oriented x3, Cooperative, No apparent distress, Well developed, Well nourished HEENT: Atraumatic, PERRLA, EOMI, Normocephalic Lungs: Normal air movement Psych/Mental Status: Normal Affect, Appropriate, Alert and oriented to time, place, person, mood and affect Assessment/Plan Active Problems History of melanoma (Chronic) Ulcer of right groin (Chronic) Soft tissue radionecrosis (Chronic) soft tissue radiation injury (Chronic) Patient appears to be tolerating hyperbaric oxygen therapy well, which will be continued as per the patient's medical plan, perhaps with as many as 30 additional treatments, for a total of 90.
[2017-11-08 09:21] VITALS: BP 142/99; BP 151/88; PULSE 73; PULSE 85; RESP 16; TEMP 36.1; TEMP 36.3
--- NOTE | 2017-11-08 09:21 | PCM.HBO.PN ---
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 Progress: The patient appears to be tolerating hyperbaric oxygen therapy well. Tolerance of hyperbaric oxygen therapy: Hyperbaric oxygen therapy was administered as per the facility's protocol. Hyperbaric oxygen therapy was tolerated well, without complaints or complications. Upon emergence from the hyperbaric chamber, the patient's vital signs remained stable. She was discharged in good condition. 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 The patient's father at age of 79 with a history of cardiomyopathy. Smoking Status: Former smoker Tobacco Use: Non-smoker Physical Exam Vital Signs Temp Pulse Resp BP 97.8 F 83 16 153/87 H 11/07/17 10:28 11/07/17 10:28 11/07/17 10:28 11/07/17 10:28 General: Alert, Oriented x3, Cooperative HEENT: Atraumatic, Normocephalic, TM's Clear Lungs: Normal air movement Cardiovascular: Regular rate Psych/Mental Status: Normal Affect Assessment/Plan Active Problems History of melanoma (Chronic) Ulcer of right groin (Chronic) Soft tissue radionecrosis (Chronic) soft tissue radiation injury (Chronic) Patient appears to be tolerating hyperbaric oxygen therapy well, which will be continued as per the patient's medical plan, perhaps with as many as 30 additional treatments, for a total of 90.
[2017-11-09 09:10] VITALS: BP 154/67; BP 156/77; PULSE 77; PULSE 80; RESP 16; TEMP 36.6; TEMP 36.7
--- NOTE | 2017-11-09 14:44 | PCM.HBO.PN ---
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 Progress: The patient appears to be tolerating hyperbaric oxygen therapy well. Tolerance of hyperbaric oxygen therapy: Hyperbaric oxygen therapy was administered as per the facility's protocol. Hyperbaric oxygen therapy was tolerated well, without complaints or complications. Upon emergence from the hyperbaric chamber, the patient's vital signs remained stable. She was discharged in good condition. 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 The patient's father at age of 79 with a history of cardiomyopathy. Smoking Status: Former smoker Tobacco Use: Non-smoker Physical Exam Vital Signs Temp Pulse Resp BP 97.9 F 80 16 154/67 H 11/09/17 09:10 11/09/17 09:10 11/09/17 09:10 11/09/17 09:10 General: Alert, Oriented x3, Cooperative, No apparent distress HEENT: Atraumatic, Normocephalic, TM's Clear Lungs: Normal air movement Cardiovascular: Regular rate Psych/Mental Status: Normal Affect Assessment/Plan Active Problems History of melanoma (Chronic) Ulcer of right groin (Chronic) Soft tissue radionecrosis (Chronic) soft tissue radiation injury (Chronic) Patient appears to be tolerating hyperbaric oxygen therapy well, which will be continued as per the patient's medical plan.
[2017-11-10 08:16] VITALS: BP 131/78; BP 151/94; PULSE 74; PULSE 85; RESP 16; TEMP 36.3
--- NOTE | 2017-11-10 14:24 | PCM.HBO.PN ---
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 Progress: The patient appears to be tolerating hyperbaric oxygen therapy well. Tolerance of hyperbaric oxygen therapy: Hyperbaric oxygen therapy was administered as per the facility's protocol. Hyperbaric oxygen therapy was tolerated well, without complaints or complications. Upon emergence from the hyperbaric chamber, the patient's vital signs remained stable. She was discharged in good condition. 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 The patient's father at age of 79 with a history of cardiomyopathy. 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
[2017-11-13 08:41] VITALS: BP 128/85; BP 144/76; PULSE 72; PULSE 85; RESP 16; TEMP 36.2
[2017-11-13 10:54] VITALS: BP 144/76; PULSE 72; RESP 18; TEMP 36.2; BMI 68.3
--- NOTE | 2017-11-13 21:53 | PCM.WC.HP ---
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 The patient underwent excision of her melanoma with lymphadenectomy in the right groin. She also underwent lengthy radiation treatments at the [facility] in [place], [place]. Melanoma recurred, and the patient was subsequently treated with monoclonal antibodies in 1984. 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 Treatment included local ulcer care and hyperbaric oxygen therapy. She underwent a total of nearly 90 treatments of hyperbaric oxygen therapy. It is known that she tolerated the therapies well, and derived significant benefit. She relates no history of claustrophobia, or other complications related to the hyperbaric oxygen therapy treatments. She has no history of barotrauma to lungs, ears, etc. Her medical history has been reviewed, without any evidence of contraindications to hyperbaric oxygen therapy. Hyperbaric oxygen therapy has been reinitiated, and the patient is currently undergoing hyperbaric oxygen therapy in our facility on a daily basis. She is currently using collagenase Santyl topically to the wound in the right groin. She has undergone a total of 60 sessions of hyperbaric oxygen therapy. We are to continue with hyperbaric oxygen therapy, which is felt to be clinically warranted. The patient's history suggests that the right groin wound in the past responded to hyperbaric oxygen therapy, but required 90 such sessions. It appears as though the patient's current clinical course is mimicking that of the past, and additional hyperbaric oxygen therapy sessions, up to a total of 90, is felt to be warranted. She also has a superficial ulceration on the right medial thigh. It had been present, but had been concealed by the patient from the wound center staff. It appears to be due to pressure phenomenon, related to the patient's right lower extremity prosthesis. We are treating this ulceration with collagen hydrogel topically on a daily basis, and offloading measures. The patient has abandoned her prosthesis for the time being. 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 She is undergone excision of melanoma from the right calf, with lymphadenectomy of the right groin in the s. She subsequently required surgeries of the right thigh related to osteomyelitis, MRSA infection, and radiation injury to the right femoral artery. Ultimately, the patient required right above-knee amputation, performed in 2000. She also has a remote history of open reduction and internal fixation of a right ankle fracture. Allergies/Adverse Reactions: Allergies No Known Allergies Allergy (Verified 06/20/17 09:22) Home Medications: Ambulatory Orders Medication Instructions Recorded Famotidine 20 mg PO 06/20/17 Pravastatin [Pravachol] 20 mg PO DAILY 06/20/17 - Family History Maternal - - The patient's mother is 98 years of age and relatively healthy. The patient's father at age of 79 with a history of cardiomyopathy. Smoking Status: Former smoker Tobacco Use: Non-smoker - Physical Exam Vital Signs Temp Pulse Resp BP 97.1 F L 72 18 144/76 H 11/13/17 10:54 11/13/17 10:54 11/13/17 10:54 11/13/17 10:54 Wound Measurements and Assessment WC - Nurse 1 - General Ulcer Measurement Start: 11/07/17 08:15 Freq: Status: Active Protocol: Activity Type Activity Date Activity User E-Sign Co-Sign Detail Recorded Client Recorded Date Recorded By Document 11/13/17 10:54 [id number] 11/13/17 10:57 11/13/17 10:54 Wound Center Nurse 1 [Ulcer Assessment] #5 R Groin -Combined with other wound No -Current Size (cm) - Length 3.4 -Current Size (cm) - Width 1.0 -Current Size (cm) - Depth 0.4 -Total Square Cm 3.40 -Photo Taken No -Epithelialization None Present -Tunneling No -Undermining/Tunneling No -Circular Undermining No -Classification - Thickness Full Thickness without Exposed Support Structure -Exudate Amt Small (1-33%) -Exudate Type Serous -Wound Margin Fibrotic Scar, Thickened Scar -Granulation Amt None Present (0 %) -Granulation Quality N/A -Slough/Fibrin Yes -Necrosis Amt Large (67-100%) -Necrotic Tissue Type Adherent Slough -Structure Exposed Fascia Fat Layer Exposed -Texture (Blanche-wound Skin Appearance) Scarring -Moisture (Blanche-wound Skin Appearance No Abnormality ) -Color (Blanche-wound Skin Appearance) Palor -Temperature (Blanche-wound Skin No Abnormality Appearance) (Pt Warm) -Tenderness on Palpation (Blanche-wound No Skin Appearance) -Ulcer Cleansing Rinsed/ Irrigated with Saline -Foul Odor after Cleansing No -Anesthetic Used 5% Lidocaine Gel [Edema Assessment] -Lower Limb Edema Present No WC - Nurse 2 - General Ulcer CM Notes Start: 11/07/17 08:15 Freq: Status: Active Protocol: Activity Type Activity Date Activity User E-Sign Co-Sign Detail Recorded Client Recorded Date Recorded By Document 11/13/17 11:28 [email or web address] [id number] 11/13/17 11:31 [email or web address] 11/13/17 11:28 Wound Center Nurse 2 [Procedure/Treatment] 6-right medial thigh -Correct Patient No -Correct Side, Site, Position No -Correct Procedure No -Procedure Performed No #5 R Groin -Time 11:29 -Correct Patient Yes -Correct Side, Site, Position Yes -Correct Procedure Yes -Procedure Performed Yes -Type of Procedure Debridement -Clinical Debridement Subcutaneous -Post Debridement Size (cm) - Length 3.5 -Post Debridement Size (cm) - Width 1 -Post Debridement Size (cm) - Depth 0.4 -Total Square Cm 3.5 -Wound/Ulcer Outcome Not Healed -Ulcer Cleansing Rinsed/ Irrigated with Saline -Foul Odor after Cleansing No -Bioengineered Tissue No -Bleeding Controlled with Pressure -Treatment Response Procedure Tolerated Well [See Physician Procedure note for Specifics] Pain Scale: 0-10 Numeric [Pain] -Is Patient Pain Free? Yes Debridement Note Post-Debridement Measurements/Treatment WC - Nurse 2 - General Ulcer CM Notes Start: 11/07/17 08:15 Freq: Status: Active Protocol: Activity Type Activity Date Activity User E-Sign Co-Sign Detail Recorded Client Recorded Date Recorded By Document 11/07/17 11:55 [id number] 11/07/17 12:12 Document 11/13/17 11:28 [id number] 11/13/17 11:31 11/07/17 11/13/17 11:55 11:28 Wound Center Nurse 2 6-right medial thigh -Time 11:56 -Correct Patient Yes No -Correct Side, Site, Position Yes No -Correct Procedure Yes No -Procedure Performed Yes No -Type of Procedure Debridement -Clinical Debridement Subcutaneous -Post Debridement Size (cm) - Length 0.3 -Post Debridement Size (cm) - Width 0.3 -Post Debridement Size (cm) - Depth 0.1 -Total Square Cm 0.09 -Wound/Ulcer Outcome Not Healed -Ulcer Cleansing Rinsed/ Irrigated with Saline -Foul Odor after Cleansing No -Bioengineered Tissue No -Topical Lidocaine (%) 4 -Lidocaine (ml) 5 -Bleeding Controlled with NA -Treatment Response Procedure Tolerated Well #5 R Groin -Time 11:56 11:29 -Correct Patient Yes Yes -Correct Side, Site, Position Yes Yes -Correct Procedure Yes Yes -Procedure Performed Yes Yes -Type of Procedure Debridement Debridement -Clinical Debridement Subcutaneous Subcutaneous -Post Debridement Size (cm) - Length 3.5 3.5 -Post Debridement Size (cm) - Width 1.0 1 -Post Debridement Size (cm) - Depth 0.5 0.4 -Total Square Cm 3.50 3.5 -Wound/Ulcer Outcome Not Healed Not Healed -Ulcer Cleansing Rinsed/ Rinsed/ Irrigated with Irrigated with Saline Saline -Foul Odor after Cleansing No No -Bioengineered Tissue No No -Topical Lidocaine (%) 4 -Lidocaine (ml) 5 -Bleeding Controlled with NA Pressure -Treatment Response Procedure Procedure Tolerated Well Tolerated Well Pain Scale: 0-10 Numeric Is Patient Pain Free? Yes Yes Wound debrided: #5 Right inguinal area. Laterality: Right Wound Grade/Stage: 3. Type of Debridement: Excisional debridement Anesthesia Used: 4% Lidocaine Solution Depth: Down to and including healthy tissue, in the subcutaneous layer Percentage of wound debrided: 100 Instrument Used: 7mm curette Tissue Removed: subcutaneous tissue. Severity: Fat Layer Exposed Amount of bleeding with debridement: Mild Bleeding Controlled with: Pressure Patient tolerated procedure well - She will continue her HBO. The wound care will continue with Santyl. Operative debridement needs to be done at a tertiary center with an Oncologic Surgeon. Vascular Surgeon needs to be available as well because of the severity of the radiation fibrosis, a debridement may necessitate a vascular bypass if bleeding is encountered. After adequate operative debridement, complex muscle flap reconstruction can be done. At the time of the operative debridement, a tissue biopsy should be done to evaluate for carcinoma to make sure recurrent cancer is not present. Assessment/Plan Assessment: This is a 62-year-old female with a somewhat complicated and complex past medical history, documented above. In the 1970's, she was diagnosed with malignant melanoma of the right calf, with metastasis to lymph nodes in the right groin. She underwent excision of the melanoma with right groin lymphadenectomy. She was subsequently treated with a long series of radiation treatments to the right groin. During the days of her radiation treatment, it is suspected that the radiation techniques were somewhat early in their evolution, and quite likely that the patient received massive doses of radiation exposure, exceeding doses which would be considered appropriate today, with techniques which are primitive by today's standards. As result, the patient has developed soft tissue radiation injury, and has previously been treated at our wound center in the past with a series of approximately 90 hyperbaric oxygen therapy treatments, in 2012. She presented with recurrence of soft tissue radionecrosis in the right groin. Hyperbaric oxygen therapy treatments have been initiated, and the patient has undergone a series of 60 hyperbaric oxygen treatment sessions. She has shown recent benefit from the hyperbaric oxygen treatments, and continued hyperbaric oxygen therapy is felt to be warranted. We are to continue with additional hyperbaric oxygen therapy, felt to be clinically warranted, and in accordance with the patient's past history, in which wound healing was effected only after 90 such sessions. She has tolerated hyperbaric oxygen therapy well, without complaints or complications. She now has a newly discovered pressure ulceration on the right medial thigh, related to pressure from her prosthesis. Plan: We are to continue the use of collagenase Santyl topically on a daily basis relative to the right groin ulceration. We will continue the use of collagen hydrogel topically on a daily basis relative to the right medial thigh ulceration. There has been mild improvement in recent weeks. The patient's right groin ulceration is located in an intertriginous zone, subjected to body heat and perspiration. Patient has been urged to keep the area clean and dry. The patient is to avoid the use of her prosthesis, allowing for her pressure ulceration on the right medial thigh to heal. We are to also seek consultation with Dr. Carlos, plastic surgeon, seeking his recommendations regarding possible surgical excision and flap reconstruction of the patient's ulcer/wound. There has been hesitance to do so thus far, given the irradiated field, and concerns regarding healing potential. Aggressive surgical excision and debridement of the area has been considered, but appears to be a less than optimal option. There would be concern as to the healing potential in the area involved, given that heavy doses of radiation have been rendered to this area in the past. Furthermore, a radical excision of the wound in this area had been previously considered several years ago, but the patient declined such intervention, and continues to prefer to avoid such a surgical approach. Consideration may be given in the near future to a biopsy of the right groin ulceration, to exclude the possibility of malignancy. The patient will return in 1 week for reassessment. Hyperbaric oxygen therapy is to be continued. Influenza vaccine was not administered today. Patient is not a smoker. She stands 5 feet 7 inches tall. She weighs 198 pounds. Her BMI is 31, which places her in a class I category. Weight loss has been recommended. She is to collaborate with her primary care physician in this regard.
--- NOTE | 2017-11-13 21:57 | PCM.HBO.PN ---
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 Progress: Treatment #65 hyperbaric oxygen therapy. Tolerance of hyperbaric oxygen therapy: Hyperbaric oxygen therapy was administered as per the facility's protocol. The patient tolerated hyperbaric oxygen therapy well, without complications or complaints. Upon emergence from the hyperbaric chamber, the patient's vital signs remained stable. The patient was discharged in good condition. 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 The patient's father at age of 79 with a history of cardiomyopathy. Smoking Status: Former smoker Tobacco Use: Non-smoker Physical Exam Vital Signs Temp Pulse Resp BP 97.1 F L 72 18 144/76 H 11/13/17 10:54 11/13/17 10:54 11/13/17 10:54 11/13/17 10:54
[2017-11-14 08:20] VITALS: BP 139/95; BP 147/98; PULSE 82; PULSE 95; RESP 16; TEMP 36.4; TEMP 36.6
--- NOTE | 2017-11-14 14:06 | PCM.HBO.PN ---
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 Progress: The patient appears to be tolerating hyperbaric oxygen therapy well. Today's session represents the 66th such session of hyperbaric oxygen therapy. Tolerance of hyperbaric oxygen therapy: Hyperbaric oxygen therapy was administered as per the facility's protocol. Hyperbaric oxygen therapy was tolerated well, without complaints or complications. Upon emergence from the hyperbaric chamber, the patient's vital signs remained stable. She was discharged in good condition. 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 The patient's father at age of 79 with a history of cardiomyopathy. 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
[2017-11-15 08:17] VITALS: BP 126/91; BP 142/102; PULSE 75; PULSE 85; RESP 16; TEMP 36.5; TEMP 36.6
--- NOTE | 2017-11-15 13:12 | PCM.HBO.PN ---
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 Progress: The patient appears to be tolerating hyperbaric oxygen therapy well. Tolerance of hyperbaric oxygen therapy: Hyperbaric oxygen therapy was administered as per the facility's protocol. Hyperbaric oxygen therapy was tolerated well, without complaints or complications. Upon emergence from the hyperbaric chamber, the patient's vital signs remained stable. She was discharged in good condition. 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 The patient's father at age of 79 with a history of cardiomyopathy. 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
[2017-11-20 08:18] VITALS: BP 144/96; BP 165/83; PULSE 78; PULSE 91; RESP 16; TEMP 36.3; TEMP 36.6
--- NOTE | 2017-11-20 23:53 | PCM.HBO.PN ---
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 Progress: Treatment #68 hyperbaric oxygen therapy. Tolerance of hyperbaric oxygen therapy: Hyperbaric oxygen therapy was administered as per the facility's protocol. The patient tolerated hyperbaric oxygen therapy well, without complications or complaints. Upon emergence from the hyperbaric chamber, the patient's vital signs remained stable. The patient was discharged in good condition. 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 The patient's father at age of 79 with a history of cardiomyopathy. Smoking Status: Former smoker Tobacco Use: Non-smoker Physical Exam Vital Signs Temp Pulse Resp BP 97.4 F L 91 16 144/96 H 11/20/17 08:18 11/20/17 08:18 11/20/17 08:18 11/20/17 08:18
[2017-11-21 08:26] VITALS: BP 134/81; BP 160/101; PULSE 102; PULSE 85; RESP 16; RESP 18; TEMP 36.8; TEMP 37.1
[2017-11-21 10:26] VITALS: BP 134/81; PULSE 85; RESP 16; TEMP 36.8; BMI 68.3
--- NOTE | 2017-11-21 11:26 | PCM.WC.HP ---
(1) History of uterine cancer Status: Chronic Current Visit: No Code(s): Z85.42 - Personal history of malignant neoplasm of other parts of uterus (2) History of melanoma Status: Chronic Current Visit: Yes Code(s): Z85.820 - Personal history of malignant melanoma of skin (3) Hyperlipidemia Status: Chronic Current Visit: No Code(s): E78.5 - Hyperlipidemia, unspecified (4) GERD (gastroesophageal reflux disease) Status: Chronic Current Visit: No Code(s): K21.9 - Gastro-esophageal reflux disease without esophagitis (5) Ulcer of right groin Status: Chronic Current Visit: Yes Qualifiers: Non-pressure ulcer stage: with fat layer exposed Code(s): L98.499 - Non-pressure chronic ulcer of skin of other sites with unspecified severity (6) Obesity (BMI 30.0-34.9) Status: Chronic Current Visit: No Code(s): E66.9 - Obesity, unspecified (7) Amputee, above knee Status: Chronic Current Visit: No Qualifiers: Code(s): Z89.619 - Acquired absence of unspecified leg above knee (8) Soft tissue radionecrosis Status: Chronic Current Visit: Yes Code(s): L59.8 - Other specified disorders of the skin and subcutaneous tissue related to radiation; Y84.2 - Radiological procedure and radiotherapy as the cause of abnormal reaction of the patient, or of later complication, without mention of misadventure at the time of the procedure (9) soft tissue radiation injury Status: Chronic Current Visit: Yes History of Present Illness Date of Service: 11/21/17 Chief Complaint: 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 The patient underwent excision of her melanoma with lymphadenectomy in the right groin. She also underwent lengthy radiation treatments at the [facility] in [place], [place]. Melanoma recurred, and the patient was subsequently treated with monoclonal antibodies in 1984. 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 Treatment included local ulcer care and hyperbaric oxygen therapy. She underwent a total of nearly 90 treatments of hyperbaric oxygen therapy. It is known that she tolerated the therapies well, and derived significant benefit. She relates no history of claustrophobia, or other complications related to the hyperbaric oxygen therapy treatments. She has no history of barotrauma to lungs, ears, etc. Her medical history has been reviewed, without any evidence of contraindications to hyperbaric oxygen therapy. Hyperbaric oxygen therapy has been reinitiated, and the patient is currently undergoing hyperbaric oxygen therapy in our facility on a daily basis. She is currently using collagenase Santyl topically to the wound in the right groin. She has undergone a total of 60 sessions of hyperbaric oxygen therapy. We are to continue with hyperbaric oxygen therapy, which is felt to be clinically warranted. The patient's history suggests that the right groin wound in the past responded to hyperbaric oxygen therapy, but required 90 such sessions. It appears as though the patient's current clinical course is mimicking that of the past, and additional hyperbaric oxygen therapy sessions, up to a total of 90, is felt to be warranted. 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 She is undergone excision of melanoma from the right calf, with lymphadenectomy of the right groin in the 1969's. She subsequently required surgeries of the right thigh related to osteomyelitis, MRSA infection, and radiation injury to the right femoral artery. Ultimately, the patient required right above-knee amputation, performed in 2000. She also has a remote history of open reduction and internal fixation of a right ankle fracture. Allergies/Adverse Reactions: Allergies No Known Allergies Allergy (Verified 06/20/17 09:22) Home Medications: Ambulatory Orders Medication Instructions Recorded Famotidine 20 mg PO 06/20/17 Pravastatin [Pravachol] 20 mg PO DAILY 06/20/17 - Family History Maternal - - The patient's mother is 98 years of age and relatively healthy. The patient's father at age of 79 with a history of cardiomyopathy. Smoking Status: Former smoker Tobacco Use: Non-smoker Review of Systems Constitutional: Denies: Chills, Fever, Weight Change Eyes: Denies: Pain, Vision Change HEENT: Denies: Difficulty Hearing, Difficulty Swallowing, Sinus Congestion Cardiovascular: Denies: Chest Pain, Palpitations Respiratory: Denies: Cough, Shortness of Breath Gastrointestinal: Denies: Diarrhea, Nausea, Vomiting Genitourinary: Denies: Dysuria, Hematuria Endocrine: Denies: Heat/ Cold Intolerance, Polydipsia, Polyuria Hematologic/ Lymphatic: Denies: Easy Bruising, Easy Bleeding - Physical Exam Vital Signs Temp Pulse Resp BP 98.3 F 85 16 134/81 H 11/21/17 10:26 11/21/17 10:26 11/21/17 10:26 11/21/17 10:26 General: Alert, Oriented x3, Cooperative, No apparent distress, Well developed, Well nourished HEENT: Atraumatic, PERRLA, EOMI, Normocephalic Oral: Moist Mucosa Neck: No JVD Lungs: Normal air movement Abdomen: Non-Distended Extremities: No clubbing, No cyanosis, No edema, No Calf Tenderness, - - She has a right above-knee amputation. Right groin wound demonstrates slight improvement, with increasing areas of healthy pink granulation tissue. Dimensions are documented elsewhere. There is no sign of infection or cellulitis. There is a moderate amount of bioburden. The prior ulceration on the right medial thigh is now completely healed. Wound Measurements and Assessment WC - Nurse 1 - General Ulcer Measurement Start: 11/07/17 08:15 Freq: Status: Active Protocol: Activity Type Activity Date Activity User E-Sign Co-Sign Detail Recorded Client Recorded Date Recorded By Document 11/21/17 10:26 ROSANGELA [id number] 11/21/17 10:36 TN 11/21/17 10:26 Wound Center Nurse 1 [Ulcer Assessment] #5 R Groin -Combined with other wound No -Current Size (cm) - Length 3.6 -Current Size (cm) - Width 1 -Current Size (cm) - Depth 0 -Total Square Cm 3.6 -Date of Last Picture (Recall this 11/21/17 field) -Photo Taken No -Epithelialization None Present -Tunneling No -Undermining/Tunneling No -Circular Undermining No -Classification - Thickness Full Thickness without Exposed Support Structure -Change in Wound Grade/Stage No Query Text:If change please identify the Stage/Grade in the comment (ie. S2 G3) -Exudate Amt Medium (34-66%) -Exudate Type Serous -Wound Margin Distinct, Outline Attached -Granulation Amt Small (1-33%) -Granulation Quality Alba -Slough/Fibrin Yes -Necrosis Amt Large (67-100%) -Necrotic Tissue Type Adherent Slough -Structure Exposed None/Limited to Skin Breakdown -Texture (Blanche-wound Skin Appearance) Assessed Scarring -Moisture (Blanche-wound Skin Appearance No Abnormality ) Assessed -Color (Blanche-wound Skin Appearance) Assessed Erythema -Temperature (Blanche-wound Skin No Abnormality Appearance) (Pt Warm) -Tenderness on Palpation (Blanche-wound No Skin Appearance) -Ulcer Cleansing Rinsed/ Irrigated with Saline -Foul Odor after Cleansing No -Anesthetic Used 5% Lidocaine Gel [Edema Assessment] -Lower Limb Edema Present No WC - Nurse 2 - General Ulcer CM Notes Start: 11/07/17 08:15 Freq: Status: Active Protocol: Activity Type Activity Date Activity User E-Sign Co-Sign Detail Recorded Client Recorded Date Recorded By Document 11/21/17 11:18 [id number] 11/21/17 11:24 11/21/17 11:18 Wound Center Nurse 2 [Procedure/Treatment] #5 R Groin -Time 11:21 -Correct Patient Yes -Correct Side, Site, Position Yes -Correct Procedure Yes -Procedure Performed Yes -Type of Procedure Debridement -Clinical Debridement Subcutaneous -Post Debridement Size (cm) - Length 3.7 -Post Debridement Size (cm) - Width 1.1 -Post Debridement Size (cm) - Depth 0.4 -Total Square Cm 4.07 -Wound/Ulcer Outcome Not Healed -Ulcer Cleansing Rinsed/ Irrigated with Saline -Foul Odor after Cleansing No -Bioengineered Tissue No -Topical Lidocaine (%) 4 -Lidocaine (ml) 5 -Bleeding Controlled with NA -Treatment Response Procedure Tolerated Well [See Physician Procedure note for Specifics] Pain Scale: 0-10 Numeric [Pain] -Is Patient Pain Free? Yes Neurological: Cranial nerves II-XII grossly intact, Neuro grossly intact Psych/Mental Status: Normal Affect, Appropriate, Alert and oriented to time, place, person, mood and affect Debridement Note Post-Debridement Measurements/Treatment WC - Nurse 2 - General Ulcer CM Notes Start: 11/07/17 08:15 Freq: Status: Active Protocol: Activity Type Activity Date Activity User E-Sign Co-Sign Detail Recorded Client Recorded Date Recorded By Document 11/07/17 11:55 [id number] 11/07/17 12:12 JS Document 11/13/17 11:28 JF [id number] 11/13/17 11:31 JF Document 11/21/17 11:18 JS [id number] 11/21/17 11:24 JS 11/07/17 11/13/17 11/21/17 11:55 11:28 11:18 Wound Center Nurse 2 6-right medial thigh -Time 11:56 -Correct Patient Yes No -Correct Side, Site, Position Yes No -Correct Procedure Yes No -Procedure Performed Yes No -Type of Procedure Debridement -Clinical Debridement Subcutaneous -Post Debridement Size (cm) - Length 0.3 -Post Debridement Size (cm) - Width 0.3 -Post Debridement Size (cm) - Depth 0.1 -Total Square Cm 0.09 -Wound/Ulcer Outcome Not Healed -Ulcer Cleansing Rinsed/ Irrigated with Saline -Foul Odor after Cleansing No -Bioengineered Tissue No -Topical Lidocaine (%) 4 -Lidocaine (ml) 5 -Bleeding Controlled with NA -Treatment Response Procedure Tolerated Well #5 R Groin -Time 11:56 11:29 11:21 -Correct Patient Yes Yes Yes -Correct Side, Site, Position Yes Yes Yes -Correct Procedure Yes Yes Yes -Procedure Performed Yes Yes Yes -Type of Procedure Debridement Debridement Debridement -Clinical Debridement Subcutaneous Subcutaneous Subcutaneous -Post Debridement Size (cm) - Length 3.5 3.5 3.7 -Post Debridement Size (cm) - Width 1.0 1 1.1 -Post Debridement Size (cm) - Depth 0.5 0.4 0.4 -Total Square Cm 3.50 3.5 4.07 -Wound/Ulcer Outcome Not Healed Not Healed Not Healed -Ulcer Cleansing Rinsed/ Rinsed/ Rinsed/ Irrigated with Irrigated with Irrigated with Saline Saline Saline -Foul Odor after Cleansing No No No -Bioengineered Tissue No No No -Topical Lidocaine (%) 4 4 -Lidocaine (ml) 5 5 -Bleeding Controlled with NA Pressure NA -Treatment Response Procedure Procedure Procedure Tolerated Well Tolerated Well Tolerated Well Pain Scale: 0-10 Numeric Is Patient Pain Free? 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 In the 1970's, she was diagnosed with malignant melanoma of the right calf, with metastasis to lymph nodes in the right groin. She underwent excision of the melanoma with right groin lymphadenectomy. She was subsequently treated with a long series of radiation treatments to the right groin. During the days of her radiation treatment, it is suspected that the radiation techniques were somewhat early in their evolution, and quite likely that the patient received massive doses of radiation exposure, exceeding doses which would be considered appropriate today, with techniques which are primitive by today's standards. As result, the patient has developed soft tissue radiation injury, and has previously been treated at our wound center in the past with a series of approximately 90 hyperbaric oxygen therapy treatments, in 2011. She presented with recurrence of soft tissue radionecrosis in the right groin. Hyperbaric oxygen therapy treatments have been initiated, and the patient has undergone a series of 60 hyperbaric oxygen treatment sessions. She has shown recent benefit from the hyperbaric oxygen treatments, and continued hyperbaric oxygen therapy is felt to be warranted. We are to continue with additional hyperbaric oxygen therapy, felt to be clinically warranted, and in accordance with the patient's past history, in which wound healing was effected only after 90 such sessions. She has tolerated hyperbaric oxygen therapy well, without complaints or complications. Plan: We are to continue the use of collagenase Santyl topically on a daily basis relative to the right groin ulceration. There has been mild improvement in recent weeks. The patient's right groin ulceration is located in an intertriginous zone, subjected to body heat and perspiration. Patient has been urged to keep the area clean and dry. Dr. Carlos's recommendations have been noted. Aggressive surgical intervention has been considered, but there has been hesitance to do so thus far, given the irradiated field, and concerns regarding healing potential. Aggressive surgical excision and debridement of the area has been considered, but appears to be a less than optimal option. There would be concern as to the healing potential in the area involved, given that heavy doses of radiation have been rendered to this area in the past. Furthermore, a radical excision of the wound in this area had been previously considered several years ago, but the patient declined such intervention, and continues to prefer to avoid such a surgical approach. Consideration may be given in the near future to a biopsy of the right groin ulceration, to exclude the possibility of malignancy. The patient will return in 1 week for reassessment. Hyperbaric oxygen therapy is to be continued. Influenza vaccine was not administered today. Patient is not a smoker. She stands 5 feet 7 inches tall. She weighs 198 pounds. Her BMI is 31, which places her in a class I category. Weight loss has been recommended. She is to collaborate with her primary care physician in this regard.
--- NOTE | 2017-11-21 11:31 | HP.PCM_ITS ---
(1) History of uterine cancer Status: Chronic Current Visit: No Code(s): Z85.42 - Personal history of malignant neoplasm of other parts of uterus (2) History of melanoma Status: Chronic Current Visit: Yes Code(s): Z85.820 - Personal history of malignant melanoma of skin (3) Hyperlipidemia Status: Chronic Current Visit: No Code(s): E78.5 - Hyperlipidemia, unspecified (4) GERD (gastroesophageal reflux disease) Status: Chronic Current Visit: No Code(s): K21.9 - Gastro-esophageal reflux disease without esophagitis (5) Ulcer of right groin Status: Chronic Current Visit: Yes Qualifiers: Non-pressure ulcer stage: with fat layer exposed Code(s): L98.499 - Non-pressure chronic ulcer of skin of other sites with unspecified severity (6) Obesity (BMI 30.0-34.9) Status: Chronic Current Visit: No Code(s): E66.9 - Obesity, unspecified (7) Amputee, above knee Status: Chronic Current Visit: No Qualifiers: Code(s): Z89.619 - Acquired absence of unspecified leg above knee (8) Soft tissue radionecrosis Status: Chronic Current Visit: Yes Code(s): L59.8 - Other specified disorders of the skin and subcutaneous tissue related to radiation; Y84.2 - Radiological procedure and radiotherapy as the cause of abnormal reaction of the patient, or of later complication, without mention of misadventure at the time of the procedure (9) soft tissue radiation injury Status: Chronic Current Visit: Yes History of Present Illness Date of Service: 11/21/17 Chief Complaint: 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 The patient underwent excision of her melanoma with lymphadenectomy in the right groin. She also underwent lengthy radiation treatments at the [facility] in [place], [place]. Melanoma recurred, and the patient was subsequently treated with monoclonal antibodies in 1984. 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 Treatment included local ulcer care and hyperbaric oxygen therapy. She underwent a total of nearly 90 treatments of hyperbaric oxygen therapy. It is known that she tolerated the therapies well, and derived significant benefit. She relates no history of claustrophobia, or other complications related to the hyperbaric oxygen therapy treatments. She has no history of barotrauma to lungs , ears, etc. Her medical history has been reviewed, without any evidence of contraindications to hyperbaric oxygen therapy. Hyperbaric oxygen therapy has been reinitiated, and the patient is currently undergoing hyperbaric oxygen therapy in our facility on a daily basis. She is currently using collagenase Santyl topically to the wound in the right groin. She has undergone a total of 60 sessions of hyperbaric oxygen therapy. We are to continue with hyperbaric oxygen therapy, which is felt to be clinically warranted. The patient's history suggests that the right groin wound in the past responded to hyperbaric oxygen therapy, but required 90 such sessions. It appears as though the patient' s current clinical course is mimicking that of the past, and additional hyperbaric oxygen therapy sessions, up to a total of 90, is felt to be warranted. 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 She is undergone excision of melanoma from the right calf, with lymphadenectomy of the right groin in the 1969's. She subsequently required surgeries of the right thigh related to osteomyelitis, MRSA infection, and radiation injury to the right femoral artery. Ultimately, the patient required right above-knee amputation, performed in 2000. She also has a remote history of open reduction and internal fixation of a right ankle fracture. Allergies/Adverse Reactions: Allergies No Known Allergies Allergy (Verified 06/20/17 09:22) Home Medications: Ambulatory Orders Medication Instructions Recorded Famotidine 20 mg PO 06/20/17 Pravastatin [Pravachol] 20 mg PO DAILY 06/20/17 - Family History Maternal - - The patient's mother is 98 years of age and relatively healthy. The patient 's father at age of 79 with a history of cardiomyopathy. Smoking Status: Former smoker Tobacco Use: Non-smoker Review of Systems Constitutional: Denies: Chills, Fever, Weight Change Eyes: Denies: Pain, Vision Change HEENT: Denies: Difficulty Hearing, Difficulty Swallowing, Sinus Congestion Cardiovascular: Denies: Chest Pain, Palpitations Respiratory: Denies: Cough, Shortness of Breath Gastrointestinal: Denies: Diarrhea, Nausea, Vomiting Genitourinary: Denies: Dysuria, Hematuria Endocrine: Denies: Heat/ Cold Intolerance, Polydipsia, Polyuria Hematologic/ Lymphatic: Denies: Easy Bruising, Easy Bleeding - Physical Exam Vital Signs Temp Pulse Resp BP 98.3 F 85 16 134/81 H 11/21/17 10:26 11/21/17 10:26 11/21/17 10:26 11/21/17 10:26 General: Alert, Oriented x3, Cooperative, No apparent distress, Well developed, Well nourished HEENT: Atraumatic, PERRLA, EOMI, Normocephalic Oral: Moist Mucosa Neck: No JVD Lungs: Normal air movement Abdomen: Non-Distended Extremities: No clubbing, No cyanosis, No edema, No Calf Tenderness, - - She has a right above-knee amputation. Right groin wound demonstrates slight improvement, with increasing areas of healthy pink granulation tissue. Dimensions are documented elsewhere. There is no sign of infection or cellulitis. There is a moderate amount of bioburden. The prior ulceration on the right medial thigh is now completely healed. Wound Measurements and Assessment WC - Nurse 1 - General Ulcer Measurement Start: 11/07/17 08:15 Freq: Status: Active Protocol: Activity Type Activity Date Activity User E-Sign Co-Sign Detail Recorded Client Recorded Date Recorded By Document 11/21/17 10:26 [email or web address] [id number] 11/21/17 10:36 TN 11/21/17 10:26 Wound Center Nurse 1 [Ulcer Assessment] #5 R Groin -Combined with other wound No -Current Size (cm) - Length 3.6 -Current Size (cm) - Width 1 -Current Size (cm) - Depth 0 -Total Square Cm 3.6 -Date of Last Picture (Recall this 11/21/17 field) -Photo Taken No -Epithelialization None Present -Tunneling No -Undermining/Tunneling No -Circular Undermining No -Classification - Thickness Full Thickness without Exposed Support Structure -Change in Wound Grade/Stage No Query Text:If change please identify the Stage/Grade in the comment (ie. S2 G3) -Exudate Amt Medium (34-66%) -Exudate Type Serous -Wound Margin Distinct, Outline Attached -Granulation Amt Small (1-33%) -Granulation Quality [place] -Slough/Fibrin Yes -Necrosis Amt Large (67-100%) -Necrotic Tissue Type Adherent Slough -Structure Exposed None/Limited to Skin Breakdown -Texture (Blanche-wound Skin Appearance) Assessed Scarring -Moisture (Blanche-wound Skin Appearance No Abnormality ) Assessed -Color (Blanche-wound Skin Appearance) Assessed Erythema -Temperature (Blanche-wound Skin No Abnormality Appearance) (Pt Warm) -Tenderness on Palpation (Blanche-wound No Skin Appearance) -Ulcer Cleansing Rinsed/ Irrigated with Saline -Foul Odor after Cleansing No -Anesthetic Used 5% Lidocaine Gel [Edema Assessment] -Lower Limb Edema Present No WC - Nurse 2 - General Ulcer CM Notes Start: 11/07/17 08:15 Freq: Status: Active Protocol: Activity Type Activity Date Activity User E-Sign Co-Sign Detail Recorded Client Recorded Date Recorded By Document 11/21/17 11:18 [id number] 11/21/17 11:24 11/21/17 11:18 Wound Center Nurse 2 [Procedure/Treatment] #5 R Groin -Time 11:21 -Correct Patient Yes -Correct Side, Site, Position Yes -Correct Procedure Yes -Procedure Performed Yes -Type of Procedure Debridement -Clinical Debridement Subcutaneous -Post Debridement Size (cm) - Length 3.7 -Post Debridement Size (cm) - Width 1.1 -Post Debridement Size (cm) - Depth 0.4 -Total Square Cm 4.07 -Wound/Ulcer Outcome Not Healed -Ulcer Cleansing Rinsed/ Irrigated with Saline -Foul Odor after Cleansing No -Bioengineered Tissue No -Topical Lidocaine (%) 4 -Lidocaine (ml) 5 -Bleeding Controlled with NA -Treatment Response Procedure Tolerated Well [See Physician Procedure note for Specifics] Pain Scale: 0-10 Numeric [Pain] -Is Patient Pain Free? Yes Neurological: Cranial nerves II-XII grossly intact, Neuro grossly intact Psych/Mental Status: Normal Affect, Appropriate, Alert and oriented to time, place, person, mood and affect Debridement Note Post-Debridement Measurements/Treatment WC - Nurse 2 - General Ulcer CM Notes Start: 11/07/17 08:15 Freq: Status: Active Protocol: Activity Type Activity Date Activity User E-Sign Co-Sign Detail Recorded Client Recorded Date Recorded By Document 11/07/17 11:55 [id number] 11/07/17 12:12 JS Document 11/13/17 11:28 JF [id number] 11/13/17 11:31 JF Document 11/21/17 11:18 JS [id number] 11/21/17 11:24 JS 11/07/17 11/13/17 11/21/17 11:55 11:28 11:18 Wound Center Nurse 2 6-right medial thigh -Time 11:56 -Correct Patient Yes No -Correct Side, Site, Position Yes No -Correct Procedure Yes No -Procedure Performed Yes No -Type of Procedure Debridement -Clinical Debridement Subcutaneous -Post Debridement Size (cm) - Length 0.3 -Post Debridement Size (cm) - Width 0.3 -Post Debridement Size (cm) - Depth 0.1 -Total Square Cm 0.09 -Wound/Ulcer Outcome Not Healed -Ulcer Cleansing Rinsed/ Irrigated with Saline -Foul Odor after Cleansing No -Bioengineered Tissue No -Topical Lidocaine (%) 4 -Lidocaine (ml) 5 -Bleeding Controlled with NA -Treatment Response Procedure Tolerated Well #5 R Groin -Time 11:56 11:29 11:21 -Correct Patient Yes Yes Yes -Correct Side, Site, Position Yes Yes Yes -Correct Procedure Yes Yes Yes -Procedure Performed Yes Yes Yes -Type of Procedure Debridement Debridement Debridement -Clinical Debridement Subcutaneous Subcutaneous Subcutaneous -Post Debridement Size (cm) - Length 3.5 3.5 3.7 -Post Debridement Size (cm) - Width 1.0 1 1.1 -Post Debridement Size (cm) - Depth 0.5 0.4 0.4 -Total Square Cm 3.50 3.5 4.07 -Wound/Ulcer Outcome Not Healed Not Healed Not Healed -Ulcer Cleansing Rinsed/ Rinsed/ Rinsed/ Irrigated with Irrigated with Irrigated with Saline Saline Saline -Foul Odor after Cleansing No No No -Bioengineered Tissue No No No -Topical Lidocaine (%) 4 4 -Lidocaine (ml) 5 5 -Bleeding Controlled with NA Pressure NA -Treatment Response Procedure Procedure Procedure Tolerated Well Tolerated Well Tolerated Well Pain Scale: 0-10 Numeric Is Patient Pain Free? 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 In the 1970's, she was diagnosed with malignant melanoma of the right calf, with metastasis to lymph nodes in the right groin. She underwent excision of the melanoma with right groin lymphadenectomy. She was subsequently treated with a long series of radiation treatments to the right groin. During the days of her radiation treatment, it is suspected that the radiation techniques were somewhat early in their evolution, and quite likely that the patient received massive doses of radiation exposure, exceeding doses which would be considered appropriate today , with techniques which are primitive by today's standards. As result, the patient has developed soft tissue radiation injury, and has previously been treated at our wound center in the past with a series of approximately 90 hyperbaric oxygen therapy treatments, in 2011. She presented with recurrence of soft tissue radionecrosis in the right groin. Hyperbaric oxygen therapy treatments have been initiated, and the patient has undergone a series of 60 hyperbaric oxygen treatment sessions. She has shown recent benefit from the hyperbaric oxygen treatments, and continued hyperbaric oxygen therapy is felt to be warranted. We are to continue with additional hyperbaric oxygen therapy, felt to be clinically warranted, and in accordance with the patient's past history, in which wound healing was effected only after 90 such sessions. She has tolerated hyperbaric oxygen therapy well, without complaints or complications. Plan: We are to continue the use of collagenase Santyl topically on a daily basis relative to the right groin ulceration. There has been mild improvement in recent weeks. The patient's right groin ulceration is located in an intertriginous zone, subjected to body heat and perspiration. Patient has been urged to keep the area clean and dry. Dr. Carlos's recommendations have been noted. Aggressive surgical intervention has been considered, but there has been hesitance to do so thus far, given the irradiated field, and concerns regarding healing potential. Aggressive surgical excision and debridement of the area has been considered, but appears to be a less than optimal option. There would be concern as to the healing potential in the area involved, given that heavy doses of radiation have been rendered to this area in the past. Furthermore, a radical excision of the wound in this area had been previously considered several years ago, but the patient declined such intervention, and continues to prefer to avoid such a surgical approach. Consideration may be given in the near future to a biopsy of the right groin ulceration, to exclude the possibility of malignancy. The patient will return in 1 week for reassessment. Hyperbaric oxygen therapy is to be continued. Influenza vaccine was not administered today. Patient is not a smoker. She stands 5 feet 7 inches tall. She weighs 198 pounds. Her BMI is 31, which places her in a class I category. Weight loss has been recommended. She is to collaborate with her primary care physician in this regard.
--- NOTE | 2017-11-21 13:13 | PCM.HBO.PN ---
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 Progress: The patient appears to be tolerating hyperbaric oxygen therapy well. Today's session represents the 69th such session of hyperbaric oxygen therapy. Tolerance of hyperbaric oxygen therapy: Hyperbaric oxygen therapy was administered as per the facility's protocol. Hyperbaric oxygen therapy was tolerated well, without complaints or complications. Upon emergence from the hyperbaric chamber, the patient's vital signs remained stable. She was discharged in good condition. 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 The patient's father at age of 79 with a history of cardiomyopathy. Smoking Status: Former smoker Tobacco Use: Non-smoker Physical Exam Vital Signs Temp Pulse Resp BP 98.3 F 85 16 134/81 H 11/21/17 10:26 11/21/17 10:26 11/21/17 10:26 11/21/17 10:26 General: Alert, Oriented x3, Cooperative, No apparent distress, Well developed, Well nourished HEENT: Atraumatic, PERRLA, EOMI, Normocephalic Lungs: Normal air movement Psych/Mental Status: Normal Affect, Appropriate, Alert and oriented to time, place, person, mood and affect Assessment/Plan Active Problems History of melanoma (Chronic) Ulcer of right groin (Chronic) Soft tissue radionecrosis (Chronic) soft tissue radiation injury (Chronic) Hyperbaric oxygen therapy appears to be tolerated well, and will be continued as per the patient's medical plan.
[2017-11-22 09:46] VITALS: BP 155/80; BP 165/88; PULSE 88; PULSE 96; RESP 16; TEMP 36.6; TEMP 36.8
--- NOTE | 2017-11-22 10:24 | PCM.HBO.PN ---
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 Progress: The patient appears to be tolerating hyperbaric oxygen therapy well. Tolerance of hyperbaric oxygen therapy: Hyperbaric oxygen therapy was administered as per the facility's protocol. Hyperbaric oxygen therapy was tolerated well, without complaints or complications. Upon emergence from the hyperbaric chamber, the patient's vital signs remained stable. She was discharged in good condition. 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 The patient's father at age of 79 with a history of cardiomyopathy. Smoking Status: Former smoker Tobacco Use: Non-smoker Physical Exam Vital Signs Temp Pulse Resp BP 98.2 F 96 16 155/80 H 11/22/17 09:46 11/22/17 09:46 11/22/17 09:46 11/22/17 09:46 General: Alert, Oriented x3, Cooperative, No apparent distress HEENT: Atraumatic, Normocephalic, TM's Clear Lungs: Normal air movement Cardiovascular: Regular rate Psych/Mental Status: Normal Affect Assessment/Plan Active Problems History of melanoma (Chronic) Ulcer of right groin (Chronic) Soft tissue radionecrosis (Chronic) soft tissue radiation injury (Chronic) Hyperbaric oxygen therapy appears to be tolerated well, and will be continued as per the patient's medical plan.
[2017-11-23 09:17] VITALS: BP 139/56; BP 141/87; PULSE 86; PULSE 89; RESP 16; TEMP 36.6; TEMP 36.8
--- NOTE | 2017-11-23 09:23 | PCM.HBO.PN ---
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 Progress: The patient appears to be tolerating hyperbaric oxygen therapy well. Tolerance of hyperbaric oxygen therapy: Hyperbaric oxygen therapy was administered as per the facility's protocol. Hyperbaric oxygen therapy was tolerated well, without complaints or complications. Upon emergence from the hyperbaric chamber, the patient's vital signs remained stable. She was discharged in good condition. 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 The patient's father at age of 79 with a history of cardiomyopathy. Smoking Status: Former smoker Tobacco Use: Non-smoker Physical Exam Vital Signs Temp Pulse Resp BP 98.2 F 89 16 141/87 H 11/23/17 09:17 11/23/17 09:17 11/23/17 09:17 11/23/17 09:17 General: Alert, Oriented x3, Cooperative, No apparent distress HEENT: Atraumatic, Normocephalic, TM's Clear Lungs: Normal air movement Cardiovascular: Regular rate Psych/Mental Status: Normal Affect Assessment/Plan Active Problems History of melanoma (Chronic) Ulcer of right groin (Chronic) Soft tissue radionecrosis (Chronic) soft tissue radiation injury (Chronic) Hyperbaric oxygen therapy appears to be tolerated well, and will be continued as per the patient's medical plan.
[2017-11-24 08:23] VITALS: BP 142/90; BP 158/100; PULSE 80; PULSE 97; RESP 16; TEMP 36.3; TEMP 36.4
--- NOTE | 2017-11-24 10:47 | PCM.HBO.PN ---
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 Progress: The patient appears to be tolerating hyperbaric oxygen therapy well. Tolerance of hyperbaric oxygen therapy: Hyperbaric oxygen therapy was administered as per the facility's protocol. Hyperbaric oxygen therapy was tolerated well, without complaints or complications. Upon emergence from the hyperbaric chamber, the patient's vital signs remained stable. She was discharged in good condition. 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 The patient's father at age of 79 with a history of cardiomyopathy. Smoking Status: Former smoker Tobacco Use: Non-smoker Physical Exam Vital Signs Temp Pulse Resp BP 97.3 F L 97 16 158/100 H 11/24/17 08:23 11/24/17 08:23 11/24/17 08:23 11/24/17 08:23 Assessment/Plan Active Problems History of melanoma (Chronic) Ulcer of right groin (Chronic) Soft tissue radionecrosis (Chronic) soft tissue radiation injury (Chronic) Hyperbaric oxygen therapy appears to be tolerated well, and will be continued as per the patient's medical plan.
[2017-11-28 08:18] VITALS: BP 138/88; BP 150/92; PULSE 93; PULSE 99; RESP 16; TEMP 36.2
[2017-11-28 10:31] VITALS: BP 142/93; PULSE 85; RESP 16; TEMP 36.2; BMI 68.3
--- NOTE | 2017-11-28 11:16 | PCM.WC.HP ---
(1) History of uterine cancer Status: Chronic Current Visit: No Code(s): Z85.42 - Personal history of malignant neoplasm of other parts of uterus (2) History of melanoma Status: Chronic Current Visit: Yes Code(s): Z85.820 - Personal history of malignant melanoma of skin (3) Hyperlipidemia Status: Chronic Current Visit: No Code(s): E78.5 - Hyperlipidemia, unspecified (4) GERD (gastroesophageal reflux disease) Status: Chronic Current Visit: No Code(s): K21.9 - Gastro-esophageal reflux disease without esophagitis (5) Ulcer of right groin Status: Chronic Current Visit: Yes Qualifiers: Non-pressure ulcer stage: with fat layer exposed Code(s): L98.499 - Non-pressure chronic ulcer of skin of other sites with unspecified severity (6) Obesity (BMI 30.0-34.9) Status: Chronic Current Visit: No Code(s): E66.9 - Obesity, unspecified (7) Amputee, above knee Status: Chronic Current Visit: No Qualifiers: Code(s): Z89.619 - Acquired absence of unspecified leg above knee (8) Soft tissue radionecrosis Status: Chronic Current Visit: Yes Code(s): L59.8 - Other specified disorders of the skin and subcutaneous tissue related to radiation; Y84.2 - Radiological procedure and radiotherapy as the cause of abnormal reaction of the patient, or of later complication, without mention of misadventure at the time of the procedure (9) soft tissue radiation injury Status: Chronic Current Visit: Yes History of Present Illness Date of Service: 11/28/17 Chief Complaint: 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 The patient underwent excision of her melanoma with lymphadenectomy in the right groin. She also underwent lengthy radiation treatments at the [facility] in [place], [place]. Melanoma recurred, and the patient was subsequently treated with monoclonal antibodies in 1984. 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 Treatment included local ulcer care and hyperbaric oxygen therapy. She underwent a total of nearly 90 treatments of hyperbaric oxygen therapy. It is known that she tolerated the therapies well, and derived significant benefit. She relates no history of claustrophobia, or other complications related to the hyperbaric oxygen therapy treatments. She has no history of barotrauma to lungs, ears, etc. Her medical history has been reviewed, without any evidence of contraindications to hyperbaric oxygen therapy. Hyperbaric oxygen therapy has been reinitiated, and the patient is currently undergoing hyperbaric oxygen therapy in our facility on a daily basis. She is currently using collagenase Santyl topically to the wound in the right groin. She has undergone a total of 60 sessions of hyperbaric oxygen therapy. We are to continue with hyperbaric oxygen therapy, which is felt to be clinically warranted. The patient's history suggests that the right groin wound in the past responded to hyperbaric oxygen therapy, but required 90 such sessions. It appears as though the patient's current clinical course is mimicking that of the past, and additional hyperbaric oxygen therapy sessions, up to a total of 90, is felt to be warranted. 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 She is undergone excision of melanoma from the right calf, with lymphadenectomy of the right groin in the 1969's. She subsequently required surgeries of the right thigh related to osteomyelitis, MRSA infection, and radiation injury to the right femoral artery. Ultimately, the patient required right above-knee amputation, performed in 2000. She also has a remote history of open reduction and internal fixation of a right ankle fracture. Allergies/Adverse Reactions: Allergies No Known Allergies Allergy (Verified 06/20/17 09:22) Home Medications: Ambulatory Orders Medication Instructions Recorded Famotidine 20 mg PO 06/20/17 Pravastatin [Pravachol] 20 mg PO DAILY 06/20/17 - Family History Maternal - - The patient's mother is 98 years of age and relatively healthy. The patient's father at age of 79 with a history of cardiomyopathy. Smoking Status: Former smoker Tobacco Use: Non-smoker Review of Systems Constitutional: Denies: Chills, Fever, Weight Change Eyes: Denies: Pain, Vision Change HEENT: Denies: Difficulty Hearing, Difficulty Swallowing, Sinus Congestion Cardiovascular: Denies: Chest Pain, Palpitations Respiratory: Denies: Cough, Shortness of Breath Gastrointestinal: Denies: Diarrhea, Nausea, Vomiting Genitourinary: Denies: Dysuria, Hematuria Endocrine: Denies: Heat/ Cold Intolerance, Polydipsia, Polyuria Hematologic/ Lymphatic: Denies: Easy Bruising, Easy Bleeding - Physical Exam Vital Signs Temp Pulse Resp BP 97.2 F L 85 16 142/93 H 11/28/17 10:31 11/28/17 10:31 11/28/17 10:31 11/28/17 10:31 General: Alert, Oriented x3, Cooperative, No apparent distress, Well developed, Well nourished HEENT: Atraumatic, PERRLA, EOMI, Normocephalic Oral: Moist Mucosa Neck: No JVD Lungs: Normal air movement Abdomen: Non-Distended Extremities: No clubbing, No cyanosis, No edema, No Calf Tenderness, - - The right groin ulceration is little changed in size. Dimensions are documented elsewhere. There is no sign of infection or cellulitis. There is a moderate amount of bioburden. However, there are increasing areas of pink healthy granulation tissue. Skin: No rashes Wound Measurements and Assessment WC - Nurse 1 - General Ulcer Measurement Start: 11/07/17 08:15 Freq: Status: Active Protocol: Activity Type Activity Date Activity User E-Sign Co-Sign Detail Recorded Client Recorded Date Recorded By Document 11/28/17 10:31 [facility] [id number] 11/28/17 10:35 [facility] 11/28/17 10:31 Wound Center Nurse 1 [Ulcer Assessment] #5 R Groin -Combined with other wound No -Current Size (cm) - Length 3.6 -Current Size (cm) - Width 0.7 -Current Size (cm) - Depth 0.4 -Total Square Cm 2.52 -Photo Taken No -Epithelialization None Present -Tunneling No -Undermining/Tunneling No -Circular Undermining No -Exudate Amt Small (1-33%) -Exudate Type Serosanguineous -Wound Margin Distinct, Outline Attached -Granulation Amt Small (1-33%) -Granulation Quality [place] -Slough/Fibrin Yes -Necrosis Amt Large (67-100%) -Necrotic Tissue Type Adherent Slough -Structure Exposed N/A -Texture (Blanche-wound Skin Appearance) Scarring -Moisture (Blanche-wound Skin Appearance Assessed ) -Color (Blanche-wound Skin Appearance) Assessed -Temperature (Blacnhe-wound Skin No Abnormality Appearance) (Pt Warm) -Tenderness on Palpation (Blanche-wound No Skin Appearance) -Ulcer Cleansing Rinsed/ Irrigated with Saline -Foul Odor after Cleansing No -Anesthetic Used 5% Lidocaine Gel WC - Nurse 2 - General Ulcer CM Notes Start: 11/07/17 08:15 Freq: Status: Active Protocol: Activity Type Activity Date Activity User E-Sign Co-Sign Detail Recorded Client Recorded Date Recorded By Document 11/28/17 11:12 [id number] 11/28/17 11:12 11/28/17 11:12 Wound Center Nurse 2 [Procedure/Treatment] -Time 11:12 -Correct Patient Yes -Correct Side, Site, Position Yes -Correct Procedure Yes -Procedure Performed Yes -Type of Procedure Debridement -Clinical Debridement Subcutaneous -Post Debridement Size (cm) - Length 3.7 -Post Debridement Size (cm) - Width 0.7 -Post Debridement Size (cm) - Depth 0.4 -Total Square Cm 2.59 -Wound/Ulcer Outcome Not Healed -Ulcer Cleansing Rinsed/ Irrigated with Saline -Foul Odor after Cleansing No -Bioengineered Tissue No -Bleeding Controlled with Pressure -Treatment Response Procedure Tolerated Well [See Physician Procedure note for Specifics] Pain Scale: 0-10 Numeric [Pain] -Is Patient Pain Free? Yes Neurological: Cranial nerves II-XII grossly intact, Neuro grossly intact Psych/Mental Status: Normal Affect, Appropriate, Alert and oriented to time, place, person, mood and affect Debridement Note Post-Debridement Measurements/Treatment WC - Nurse 2 - General Ulcer CM Notes Start: 11/07/17 08:15 Freq: Status: Active Protocol: Activity Type Activity Date Activity User E-Sign Co-Sign Detail Recorded Client Recorded Date Recorded By Document 11/07/17 11:55 [id number] 11/07/17 12:12 JS Document 11/13/17 11:28 [id number] 11/13/17 11:31 JF Document 11/21/17 11:18 JS [id number] 11/21/17 11:24 JS Document 11/28/17 11:12 JF [id number] 11/28/17 11:12 JF 11/07/17 11/13/17 11/21/17 11:55 11:28 11:18 Wound Center Nurse 2 6-right medial thigh -Time 11:56 -Correct Patient Yes No -Correct Side, Site, Position Yes No -Correct Procedure Yes No -Procedure Performed Yes No -Type of Procedure Debridement -Clinical Debridement Subcutaneous -Post Debridement Size (cm) - Length 0.3 -Post Debridement Size (cm) - Width 0.3 -Post Debridement Size (cm) - Depth 0.1 -Total Square Cm 0.09 -Wound/Ulcer Outcome Not Healed -Ulcer Cleansing Rinsed/ Irrigated with Saline -Foul Odor after Cleansing No -Bioengineered Tissue No -Topical Lidocaine (%) 4 -Lidocaine (ml) 5 -Bleeding Controlled with NA -Treatment Response Procedure Tolerated Well #5 R Groin -Time 11:56 11:29 11:21 -Correct Patient Yes Yes Yes -Correct Side, Site, Position Yes Yes Yes -Correct Procedure Yes Yes Yes -Procedure Performed Yes Yes Yes -Type of Procedure Debridement Debridement Debridement -Clinical Debridement Subcutaneous Subcutaneous Subcutaneous -Post Debridement Size (cm) - Length 3.5 3.5 3.7 -Post Debridement Size (cm) - Width 1.0 1 1.1 -Post Debridement Size (cm) - Depth 0.5 0.4 0.4 -Total Square Cm 3.50 3.5 4.07 -Wound/Ulcer Outcome Not Healed Not Healed Not Healed -Ulcer Cleansing Rinsed/ Rinsed/ Rinsed/ Irrigated with Irrigated with Irrigated with Saline Saline Saline -Foul Odor after Cleansing No No No -Bioengineered Tissue No No No -Topical Lidocaine (%) 4 4 -Lidocaine (ml) 5 5 -Bleeding Controlled with NA Pressure NA -Treatment Response Procedure Procedure Procedure Tolerated Well Tolerated Well Tolerated Well Pain Scale: 0-10 Numeric Is Patient Pain Free? Yes Yes Yes 11/28/17 11:12 Wound Center Nurse 2 6-right medial thigh -Time -Correct Patient -Correct Side, Site, Position -Correct Procedure -Procedure Performed -Type of Procedure -Clinical Debridement -Post Debridement Size (cm) - Length -Post Debridement Size (cm) - Width -Post Debridement Size (cm) - Depth -Total Square Cm -Wound/Ulcer Outcome -Ulcer Cleansing -Foul Odor after Cleansing -Bioengineered Tissue -Topical Lidocaine (%) -Lidocaine (ml) -Bleeding Controlled with -Treatment Response #5 R Groin -Time 11:12 -Correct Patient Yes -Correct Side, Site, Position Yes -Correct Procedure Yes -Procedure Performed Yes -Type of Procedure Debridement -Clinical Debridement Subcutaneous -Post Debridement Size (cm) - Length 3.7 -Post Debridement Size (cm) - Width 0.7 -Post Debridement Size (cm) - Depth 0.4 -Total Square Cm 2.59 -Wound/Ulcer Outcome Not Healed -Ulcer Cleansing Rinsed/ Irrigated with Saline -Foul Odor after Cleansing No -Bioengineered Tissue No -Topical Lidocaine (%) -Lidocaine (ml) -Bleeding Controlled with Pressure -Treatment Response Procedure Tolerated Well Pain Scale: 0-10 Numeric Is Patient Pain Free? 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 In the 1970's, she was diagnosed with malignant melanoma of the right calf, with metastasis to lymph nodes in the right groin. She underwent excision of the melanoma with right groin lymphadenectomy. She was subsequently treated with a long series of radiation treatments to the right groin. During the days of her radiation treatment, it is suspected that the radiation techniques were somewhat early in their evolution, and quite likely that the patient received massive doses of radiation exposure, exceeding doses which would be considered appropriate today, with techniques which are primitive by today's standards. As result, the patient has developed soft tissue radiation injury, and has previously been treated at our wound center in the past with a series of approximately 90 hyperbaric oxygen therapy treatments, in 2011. She presented with recurrence of soft tissue radionecrosis in the right groin. Hyperbaric oxygen therapy treatments have been initiated, and the patient has undergone a series of 60 hyperbaric oxygen treatment sessions. She has shown recent benefit from the hyperbaric oxygen treatments, and continued hyperbaric oxygen therapy is felt to be warranted. We are to continue with additional hyperbaric oxygen therapy, felt to be clinically warranted, and in accordance with the patient's past history, in which wound healing was effected only after 90 such sessions. She has tolerated hyperbaric oxygen therapy well, without complaints or complications. Plan: We are to continue the use of collagenase Santyl topically on a daily basis relative to the right groin ulceration. There has been mild improvement in recent weeks. The patient's right groin ulceration is located in an intertriginous zone, subjected to body heat and perspiration. Patient has been urged to keep the area clean and dry. Dr. Carlos's recommendations have been noted. Aggressive surgical intervention has been considered, but there has been hesitance to do so thus far, given the irradiated field, and concerns regarding healing potential. Aggressive surgical excision and debridement of the area has been considered, but appears to be a less than optimal option. There would be concern as to the healing potential in the area involved, given that heavy doses of radiation have been rendered to this area in the past. Furthermore, a radical excision of the wound in this area had been previously considered several years ago, but the patient declined such intervention, and continues to prefer to avoid such a surgical approach. The patient will return in 1 week for reassessment. Hyperbaric oxygen therapy is to be continued. Approval for the use of PuraPly is awaited from the patient's insurance company. Influenza vaccine was not administered today. Patient is not a smoker. She stands 5 feet 7 inches tall. She weighs 198 pounds. Her BMI is 31, which places her in a class I category. Weight loss has been recommended. She is to collaborate with her primary care physician in this regard.
--- NOTE | 2017-11-28 11:20 | HP.PCM_ITS ---
(1) History of uterine cancer Status: Chronic Current Visit: No Code(s): Z85.42 - Personal history of malignant neoplasm of other parts of uterus (2) History of melanoma Status: Chronic Current Visit: Yes Code(s): Z85.820 - Personal history of malignant melanoma of skin (3) Hyperlipidemia Status: Chronic Current Visit: No Code(s): E78.5 - Hyperlipidemia, unspecified (4) GERD (gastroesophageal reflux disease) Status: Chronic Current Visit: No Code(s): K21.9 - Gastro-esophageal reflux disease without esophagitis (5) Ulcer of right groin Status: Chronic Current Visit: Yes Qualifiers: Non-pressure ulcer stage: with fat layer exposed Code(s): L98.499 - Non-pressure chronic ulcer of skin of other sites with unspecified severity (6) Obesity (BMI 30.0-34.9) Status: Chronic Current Visit: No Code(s): E66.9 - Obesity, unspecified (7) Amputee, above knee Status: Chronic Current Visit: No Qualifiers: Code(s): Z89.619 - Acquired absence of unspecified leg above knee (8) Soft tissue radionecrosis Status: Chronic Current Visit: Yes Code(s): L59.8 - Other specified disorders of the skin and subcutaneous tissue related to radiation; Y84.2 - Radiological procedure and radiotherapy as the cause of abnormal reaction of the patient, or of later complication, without mention of misadventure at the time of the procedure (9) soft tissue radiation injury Status: Chronic Current Visit: Yes History of Present Illness Date of Service: 11/28/17 Chief Complaint: 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 The patient underwent excision of her melanoma with lymphadenectomy in the right groin. She also underwent lengthy radiation treatments at the [facility] in [place], [place]. Melanoma recurred, and the patient was subsequently treated with monoclonal antibodies in 1984. 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 Treatment included local ulcer care and hyperbaric oxygen therapy. She underwent a total of nearly 90 treatments of hyperbaric oxygen therapy. It is known that she tolerated the therapies well, and derived significant benefit. She relates no history of claustrophobia, or other complications related to the hyperbaric oxygen therapy treatments. She has no history of barotrauma to lungs , ears, etc. Her medical history has been reviewed, without any evidence of contraindications to hyperbaric oxygen therapy. Hyperbaric oxygen therapy has been reinitiated, and the patient is currently undergoing hyperbaric oxygen therapy in our facility on a daily basis. She is currently using collagenase Santyl topically to the wound in the right groin. She has undergone a total of 60 sessions of hyperbaric oxygen therapy. We are to continue with hyperbaric oxygen therapy, which is felt to be clinically warranted. The patient's history suggests that the right groin wound in the past responded to hyperbaric oxygen therapy, but required 90 such sessions. It appears as though the patient' s current clinical course is mimicking that of the past, and additional hyperbaric oxygen therapy sessions, up to a total of 90, is felt to be warranted. 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 She is undergone excision of melanoma from the right calf, with lymphadenectomy of the right groin in the 1969's. She subsequently required surgeries of the right thigh related to osteomyelitis, MRSA infection, and radiation injury to the right femoral artery. Ultimately, the patient required right above-knee amputation, performed in 2000. She also has a remote history of open reduction and internal fixation of a right ankle fracture. Allergies/Adverse Reactions: Allergies No Known Allergies Allergy (Verified 06/20/17 09:22) Home Medications: Ambulatory Orders Medication Instructions Recorded Famotidine 20 mg PO 06/20/17 Pravastatin [Pravachol] 20 mg PO DAILY 06/20/17 - Family History Maternal - - The patient's mother is 98 years of age and relatively healthy. The patient 's father at age of 79 with a history of cardiomyopathy. Smoking Status: Former smoker Tobacco Use: Non-smoker Review of Systems Constitutional: Denies: Chills, Fever, Weight Change Eyes: Denies: Pain, Vision Change HEENT: Denies: Difficulty Hearing, Difficulty Swallowing, Sinus Congestion Cardiovascular: Denies: Chest Pain, Palpitations Respiratory: Denies: Cough, Shortness of Breath Gastrointestinal: Denies: Diarrhea, Nausea, Vomiting Genitourinary: Denies: Dysuria, Hematuria Endocrine: Denies: Heat/ Cold Intolerance, Polydipsia, Polyuria Hematologic/ Lymphatic: Denies: Easy Bruising, Easy Bleeding - Physical Exam Vital Signs Temp Pulse Resp BP 97.2 F L 85 16 142/93 H 11/28/17 10:31 11/28/17 10:31 11/28/17 10:31 11/28/17 10:31 General: Alert, Oriented x3, Cooperative, No apparent distress, Well developed, Well nourished HEENT: Atraumatic, PERRLA, EOMI, Normocephalic Oral: Moist Mucosa Neck: No JVD Lungs: Normal air movement Abdomen: Non-Distended Extremities: No clubbing, No cyanosis, No edema, No Calf Tenderness, - - The right groin ulceration is little changed in size. Dimensions are documented elsewhere. There is no sign of infection or cellulitis. There is a moderate amount of bioburden. However, there are increasing areas of pink healthy granulation tissue. Skin: No rashes Wound Measurements and Assessment WC - Nurse 1 - General Ulcer Measurement Start: 11/07/17 08:15 Freq: Status: Active Protocol: Activity Type Activity Date Activity User E-Sign Co-Sign Detail Recorded Client Recorded Date Recorded By Document 11/28/17 10:31 [facility] [id number] 11/28/17 10:35 [facility] 11/28/17 10:31 Wound Center Nurse 1 [Ulcer Assessment] #5 R Groin -Combined with other wound No -Current Size (cm) - Length 3.6 -Current Size (cm) - Width 0.7 -Current Size (cm) - Depth 0.4 -Total Square Cm 2.52 -Photo Taken No -Epithelialization None Present -Tunneling No -Undermining/Tunneling No -Circular Undermining No -Exudate Amt Small (1-33%) -Exudate Type Serosanguineous -Wound Margin Distinct, Outline Attached -Granulation Amt Small (1-33%) -Granulation Quality [place] -Slough/Fibrin Yes -Necrosis Amt Large (67-100%) -Necrotic Tissue Type Adherent Slough -Structure Exposed N/A -Texture (Blanche-wound Skin Appearance) Scarring -Moisture (Blanche-wound Skin Appearance Assessed ) -Color (Blanche-wound Skin Appearance) Assessed -Temperature (Blanche-wound Skin No Abnormality Appearance) (Pt Warm) -Tenderness on Palpation (Blanche-wound No Skin Appearance) -Ulcer Cleansing Rinsed/ Irrigated with Saline -Foul Odor after Cleansing No -Anesthetic Used 5% Lidocaine Gel WC - Nurse 2 - General Ulcer CM Notes Start: 11/07/17 08:15 Freq: Status: Active Protocol: Activity Type Activity Date Activity User E-Sign Co-Sign Detail Recorded Client Recorded Date Recorded By Document 11/28/17 11:12 [id number] 11/28/17 11:12 11/28/17 11:12 Wound Center Nurse 2 [Procedure/Treatment] -Time 11:12 -Correct Patient Yes -Correct Side, Site, Position Yes -Correct Procedure Yes -Procedure Performed Yes -Type of Procedure Debridement -Clinical Debridement Subcutaneous -Post Debridement Size (cm) - Length 3.7 -Post Debridement Size (cm) - Width 0.7 -Post Debridement Size (cm) - Depth 0.4 -Total Square Cm 2.59 -Wound/Ulcer Outcome Not Healed -Ulcer Cleansing Rinsed/ Irrigated with Saline -Foul Odor after Cleansing No -Bioengineered Tissue No -Bleeding Controlled with Pressure -Treatment Response Procedure Tolerated Well [See Physician Procedure note for Specifics] Pain Scale: 0-10 Numeric [Pain] -Is Patient Pain Free? Yes Neurological: Cranial nerves II-XII grossly intact, Neuro grossly intact Psych/Mental Status: Normal Affect, Appropriate, Alert and oriented to time, place, person, mood and affect Debridement Note Post-Debridement Measurements/Treatment WC - Nurse 2 - General Ulcer CM Notes Start: 11/07/17 08:15 Freq: Status: Active Protocol: Activity Type Activity Date Activity User E-Sign Co-Sign Detail Recorded Client Recorded Date Recorded By Document 11/07/17 11:55 [id number] 11/07/17 12:12 JS Document 11/13/17 11:28 [id number] 11/13/17 11:31 JF Document 11/21/17 11:18 JS [id number] 11/21/17 11:24 JS Document 11/28/17 11:12 JF [id number] 11/28/17 11:12 JF 11/07/17 11/13/17 11/21/17 11:55 11:28 11:18 Wound Center Nurse 2 6-right medial thigh -Time 11:56 -Correct Patient Yes No -Correct Side, Site, Position Yes No -Correct Procedure Yes No -Procedure Performed Yes No -Type of Procedure Debridement -Clinical Debridement Subcutaneous -Post Debridement Size (cm) - Length 0.3 -Post Debridement Size (cm) - Width 0.3 -Post Debridement Size (cm) - Depth 0.1 -Total Square Cm 0.09 -Wound/Ulcer Outcome Not Healed -Ulcer Cleansing Rinsed/ Irrigated with Saline -Foul Odor after Cleansing No -Bioengineered Tissue No -Topical Lidocaine (%) 4 -Lidocaine (ml) 5 -Bleeding Controlled with NA -Treatment Response Procedure Tolerated Well #5 R Groin -Time 11:56 11:29 11:21 -Correct Patient Yes Yes Yes -Correct Side, Site, Position Yes Yes Yes -Correct Procedure Yes Yes Yes -Procedure Performed Yes Yes Yes -Type of Procedure Debridement Debridement Debridement -Clinical Debridement Subcutaneous Subcutaneous Subcutaneous -Post Debridement Size (cm) - Length 3.5 3.5 3.7 -Post Debridement Size (cm) - Width 1.0 1 1.1 -Post Debridement Size (cm) - Depth 0.5 0.4 0.4 -Total Square Cm 3.50 3.5 4.07 -Wound/Ulcer Outcome Not Healed Not Healed Not Healed -Ulcer Cleansing Rinsed/ Rinsed/ Rinsed/ Irrigated with Irrigated with Irrigated with Saline Saline Saline -Foul Odor after Cleansing No No No -Bioengineered Tissue No No No -Topical Lidocaine (%) 4 4 -Lidocaine (ml) 5 5 -Bleeding Controlled with NA Pressure NA -Treatment Response Procedure Procedure Procedure Tolerated Well Tolerated Well Tolerated Well Pain Scale: 0-10 Numeric Is Patient Pain Free? Yes Yes Yes 11/28/17 11:12 Wound Center Nurse 2 6-right medial thigh -Time -Correct Patient -Correct Side, Site, Position -Correct Procedure -Procedure Performed -Type of Procedure -Clinical Debridement -Post Debridement Size (cm) - Length -Post Debridement Size (cm) - Width -Post Debridement Size (cm) - Depth -Total Square Cm -Wound/Ulcer Outcome -Ulcer Cleansing -Foul Odor after Cleansing -Bioengineered Tissue -Topical Lidocaine (%) -Lidocaine (ml) -Bleeding Controlled with -Treatment Response #5 R Groin -Time 11:12 -Correct Patient Yes -Correct Side, Site, Position Yes -Correct Procedure Yes -Procedure Performed Yes -Type of Procedure Debridement -Clinical Debridement Subcutaneous -Post Debridement Size (cm) - Length 3.7 -Post Debridement Size (cm) - Width 0.7 -Post Debridement Size (cm) - Depth 0.4 -Total Square Cm 2.59 -Wound/Ulcer Outcome Not Healed -Ulcer Cleansing Rinsed/ Irrigated with Saline -Foul Odor after Cleansing No -Bioengineered Tissue No -Topical Lidocaine (%) -Lidocaine (ml) -Bleeding Controlled with Pressure -Treatment Response Procedure Tolerated Well Pain Scale: 0-10 Numeric Is Patient Pain Free? 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 In the 1970's, she was diagnosed with malignant melanoma of the right calf, with metastasis to lymph nodes in the right groin. She underwent excision of the melanoma with right groin lymphadenectomy. She was subsequently treated with a long series of radiation treatments to the right groin. During the days of her radiation treatment, it is suspected that the radiation techniques were somewhat early in their evolution, and quite likely that the patient received massive doses of radiation exposure, exceeding doses which would be considered appropriate today , with techniques which are primitive by today's standards. As result, the patient has developed soft tissue radiation injury, and has previously been treated at our wound center in the past with a series of approximately 90 hyperbaric oxygen therapy treatments, in 2011. She presented with recurrence of soft tissue radionecrosis in the right groin. Hyperbaric oxygen therapy treatments have been initiated, and the patient has undergone a series of 60 hyperbaric oxygen treatment sessions. She has shown recent benefit from the hyperbaric oxygen treatments, and continued hyperbaric oxygen therapy is felt to be warranted. We are to continue with additional hyperbaric oxygen therapy, felt to be clinically warranted, and in accordance with the patient's past history, in which wound healing was effected only after 90 such sessions. She has tolerated hyperbaric oxygen therapy well, without complaints or complications. Plan: We are to continue the use of collagenase Santyl topically on a daily basis relative to the right groin ulceration. There has been mild improvement in recent weeks. The patient's right groin ulceration is located in an intertriginous zone, subjected to body heat and perspiration. Patient has been urged to keep the area clean and dry. Dr. Carlos's recommendations have been noted. Aggressive surgical intervention has been considered, but there has been hesitance to do so thus far, given the irradiated field, and concerns regarding healing potential. Aggressive surgical excision and debridement of the area has been considered, but appears to be a less than optimal option. There would be concern as to the healing potential in the area involved, given that heavy doses of radiation have been rendered to this area in the past. Furthermore, a radical excision of the wound in this area had been previously considered several years ago, but the patient declined such intervention, and continues to prefer to avoid such a surgical approach. The patient will return in 1 week for reassessment. Hyperbaric oxygen therapy is to be continued. Approval for the use of PuraPly is awaited from the patient's insurance company. Influenza vaccine was not administered today. Patient is not a smoker. She stands 5 feet 7 inches tall. She weighs 198 pounds. Her BMI is 31 , which places her in a class I category. Weight loss has been recommended. She is to collaborate with her primary care physician in this regard.
--- NOTE | 2017-11-28 14:34 | PCM.HBO.PN ---
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 Progress: The patient appears to be tolerating hyperbaric oxygen therapy well. Session represents the 73rd such session of hyperbaric oxygen therapy. Tolerance of hyperbaric oxygen therapy: Hyperbaric oxygen therapy was administered as per the facility's protocol. Hyperbaric oxygen therapy was tolerated well, without complaints or complications. Upon emergence from the hyperbaric chamber, the patient's vital signs remained stable. She was discharged in good condition. 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 The patient's father at age of 79 with a history of cardiomyopathy. Smoking Status: Former smoker Tobacco Use: Non-smoker Physical Exam Vital Signs Temp Pulse Resp BP 97.2 F L 85 16 142/93 H 11/28/17 10:31 11/28/17 10:31 11/28/17 10:31 11/28/17 10:31 General: Alert, Oriented x3, Cooperative, No apparent distress, Well developed, Well nourished HEENT: Atraumatic, PERRLA, EOMI, Normocephalic Lungs: Normal air movement Psych/Mental Status: Normal Affect, Appropriate, Alert and oriented to time, place, person, mood and affect Assessment/Plan Active Problems History of melanoma (Chronic) Ulcer of right groin (Chronic) Soft tissue radionecrosis (Chronic) soft tissue radiation injury (Chronic) Patient appears to be tolerating hyperbaric oxygen therapy well, which will be continued as per the patient's medical plan.
--- NOTE | 2017-11-29 08:16 | PCM.HBO.PN ---
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 Progress: The patient appears to be tolerating hyperbaric oxygen therapy well. Session represents the 74th such session of hyperbaric oxygen therapy. Tolerance of hyperbaric oxygen therapy: Hyperbaric oxygen therapy was administered as per the facility's protocol. Hyperbaric oxygen therapy was tolerated well, without complaints or complications. Upon emergence from the hyperbaric chamber, the patient's vital signs remained stable. She was discharged in good condition. 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 The patient's father at age of 79 with a history of cardiomyopathy. Smoking Status: Former smoker Tobacco Use: Non-smoker Physical Exam Vital Signs Temp Pulse Resp BP 97.2 F L 85 16 142/93 H 11/28/17 10:31 11/28/17 10:31 11/28/17 10:31 11/28/17 10:31 General: Alert, Oriented x3, Cooperative, No apparent distress HEENT: Atraumatic, Normocephalic, TM's Clear Lungs: Normal air movement Psych/Mental Status: Normal Affect Assessment/Plan Active Problems History of melanoma (Chronic) Ulcer of right groin (Chronic) Soft tissue radionecrosis (Chronic) soft tissue radiation injury (Chronic) Patient appears to be tolerating hyperbaric oxygen therapy well, which will be continued as per the patient's medical plan.
[2017-11-29 08:28] VITALS: BP 144/85; BP 152/84; PULSE 82; PULSE 86; RESP 16; TEMP 36.1; TEMP 36.5
--- NOTE | 2017-11-30 08:11 | PCM.HBO.PN ---
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 Progress: The patient appears to be tolerating hyperbaric oxygen therapy well. Session represents the 75th such session of hyperbaric oxygen therapy. Tolerance of hyperbaric oxygen therapy: Hyperbaric oxygen therapy was administered as per the facility's protocol. Hyperbaric oxygen therapy was tolerated well, without complaints or complications. Upon emergence from the hyperbaric chamber, the patient's vital signs remained stable. She was discharged in good condition. 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 The patient's father at age of 79 with a history of cardiomyopathy. Smoking Status: Former smoker Tobacco Use: Non-smoker Physical Exam Vital Signs Temp Pulse Resp BP 97 F L 86 16 144/85 H 11/29/17 08:28 11/29/17 08:28 11/29/17 08:28 11/29/17 08:28 General: Alert, Oriented x3, Cooperative, No apparent distress HEENT: Atraumatic, Normocephalic Lungs: Normal air movement Psych/Mental Status: Normal Affect Assessment/Plan Active Problems History of melanoma (Chronic) Ulcer of right groin (Chronic) Soft tissue radionecrosis (Chronic) soft tissue radiation injury (Chronic) Patient appears to be tolerating hyperbaric oxygen therapy well, which will be continued as per the patient's medical plan.
[2017-11-30 08:21] VITALS: BP 144/90; BP 154/93; PULSE 83; PULSE 85; RESP 16; TEMP 36.4; TEMP 36.6
[2017-12-01 08:33] VITALS: BP 138/90; BP 153/80; PULSE 76; PULSE 90; RESP 16; TEMP 36.6; TEMP 36.8
--- NOTE | 2017-12-01 09:44 | PCM.HBO.PN ---
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 Progress: The patient appears to be tolerating hyperbaric oxygen therapy well. Session represents the 76th such session of hyperbaric oxygen therapy. Tolerance of hyperbaric oxygen therapy: Hyperbaric oxygen therapy was administered as per the facility's protocol. Hyperbaric oxygen therapy was tolerated well, without complaints or complications. Upon emergence from the hyperbaric chamber, the patient's vital signs remained stable. She was discharged in good condition. 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 The patient's father at age of 79 with a history of cardiomyopathy. 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
[2017-12-06 09:26] VITALS: BP 159/93; BP 164/77; PULSE 88; PULSE 89; RESP 16; TEMP 36.8; TEMP 37.1
--- NOTE | 2017-12-06 09:27 | PCM.HBO.PN ---
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 Progress: The patient appears to be tolerating hyperbaric oxygen therapy well. Tolerance of hyperbaric oxygen therapy: Hyperbaric oxygen therapy was administered as per the facility's protocol. Hyperbaric oxygen therapy was tolerated well, without complaints or complications. Upon emergence from the hyperbaric chamber, the patient's vital signs remained stable. She was discharged in good condition. 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 The patient's father at age of 79 with a history of cardiomyopathy. 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
[2017-12-07 09:19] VITALS: BP 150/88; BP 151/88; PULSE 80; RESP 16; TEMP 36.5
--- NOTE | 2017-12-07 10:12 | PCM.HBO.PN ---
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 Progress: The patient appears to be tolerating hyperbaric oxygen therapy well. Tolerance of hyperbaric oxygen therapy: Hyperbaric oxygen therapy was administered as per the facility's protocol. Hyperbaric oxygen therapy was tolerated well, without complaints or complications. Upon emergence from the hyperbaric chamber, the patient's vital signs remained stable. She was discharged in good condition. 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 The patient's father at age of 79 with a history of cardiomyopathy. 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
--- NOTE | 2017-12-25 17:47 | PCM.HBO.PN ---
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 Progress: Treatment #86 hyperbaric oxygen therapy. Tolerance of hyperbaric oxygen therapy: Hyperbaric oxygen therapy was administered as per the facility's protocol. The patient tolerated hyperbaric oxygen therapy well, without complications or complaints. Upon emergence from the hyperbaric chamber, the patient's vital signs remained stable. The patient was discharged in good condition. 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 The patient's father at age of 79 with a history of cardiomyopathy. Smoking Status: Former smoker Tobacco Use: Non-smoker Physical Exam Vital Signs Temp Pulse Resp BP 97.7 F L 80 16 151/88 H 12/07/17 09:19 12/07/17 09:19 12/07/17 09:19 12/07/17 09:19
== END 2017-12-07 23:59 ==
LOC: WC 09:00
PROVIDERS: Family Provider Family Medicine; PCP Family Medicine; Visit Provider Surgery
DX: L59.8 Other specified disorders of the skin and subcutaneous tissue related to radiation (principal); K21.9 Gastro-esophageal reflux disease without esophagitis; E78.5 Hyperlipidemia, unspecified; Z85.42 Personal history of malignant neoplasm of other parts of uterus; Z85.820 Personal history of malignant melanoma of skin; L98.492 Non-pressure chronic ulcer of skin of other sites with fat layer exposed; E66.9 Obesity, unspecified; Z68.31 Body mass index [BMI] 31.0-31.9, adult; Z71.3 Dietary counseling and surveillance; Z87.891 Personal history of nicotine dependence; Z89.611 Acquired absence of right leg above knee; Z86.14 Personal history of Methicillin resistant Staphylococcus aureus infection; Y84.2 Radiological procedure and radiotherapy as the cause of abnormal reaction of the patient, or of later complication, without mention of misadventure at the time of the procedure
CPT/HCPCS: 11042; 99183; G0277

== ENCOUNTER → 2017-12-19 12:41 | Outpatient (CLI) | payer OTHER, SELFPAY | PROVIDERS: Family Provider Family Medicine; PCP Family Medicine; Visit Provider Surgery | DX: L97.819 Non-pressure chronic ulcer of other part of right lower leg with unspecified severity (principal) | CPT/HCPCS: 87070; 87075; 87077; 87186; 87205 ==

== ENCOUNTER 2018-01-02 08:00 | Outpatient (RCR) | payer OTHER, SELFPAY ==
[2017-12-08 00:33] VITALS: BP 150/88; PULSE 80; RESP 16; TEMP 36.5; BMI 68.3
[2017-12-08 08:18] VITALS: BP 143/87; BP 151/90; PULSE 81; PULSE 88; RESP 16; TEMP 36.5; TEMP 36.6
--- NOTE | 2017-12-08 10:59 | PCM.HBO.PN ---
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 The patient's father at age of 79 with a history of cardiomyopathy. Smoking Status: Former smoker Tobacco Use: Non-smoker Physical Exam Vital Signs Temp Pulse Resp BP 98 F 88 16 151/90 H 12/08/17 08:18 12/08/17 08:18 12/08/17 08:18 12/08/17 08:18 Assessment/Plan continue HBO treatments as prescribed
[2017-12-19 09:24] VITALS: BP 145/96; BP 159/96; PULSE 102; PULSE 83; RESP 16; TEMP 36.2; TEMP 36.6
--- NOTE | 2017-12-19 10:32 | PCM.HBO.PN ---
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 Progress: Improving. The patient appears to be tolerating hyperbaric oxygen therapy well. Today's session represents the 82nd such session of hyperbaric oxygen treatment. Tolerance of hyperbaric oxygen therapy: Tolerating treatments well. Hyperbaric oxygen therapy was administered as per the facility's protocol. The patient tolerated hyperbaric oxygen therapy well, without complaints or complications. Upon emergence from the hyperbaric chamber, patient's vital signs remained stable. The patient was discharged in good condition. 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 The patient's father at age of 79 with a history of cardiomyopathy. Smoking Status: Former smoker Tobacco Use: Non-smoker Physical Exam Vital Signs Temp Pulse Resp BP 97.2 F L 102 H 16 159/96 H 12/19/17 09:24 12/19/17 09:24 12/19/17 09:24 12/19/17 09:24 General: Alert, Oriented x3, Cooperative, No apparent distress, Well developed, Well nourished HEENT: Atraumatic, PERRLA, EOMI, Normocephalic Lungs: Normal air movement Psych/Mental Status: Normal Affect, Appropriate, Alert and oriented to time, place, person, mood and affect Assessment/Plan The patient appears to be tolerating hyperbaric oxygen therapy well, which will be continued as per the patient's medical plan.
[2017-12-19 10:42] VITALS: BP 154/89; PULSE 88; RESP 18; TEMP 36.8; BMI 68.3
--- NOTE | 2017-12-19 10:48 | PCM.WC.HP ---
(1) History of uterine cancer Status: Chronic Current Visit: No Code(s): Z85.42 - Personal history of malignant neoplasm of other parts of uterus (2) History of melanoma Status: Chronic Current Visit: Yes Code(s): Z85.820 - Personal history of malignant melanoma of skin (3) Hyperlipidemia Status: Chronic Current Visit: No Code(s): E78.5 - Hyperlipidemia, unspecified (4) GERD (gastroesophageal reflux disease) Status: Chronic Current Visit: No Code(s): K21.9 - Gastro-esophageal reflux disease without esophagitis (5) Ulcer of right groin Status: Chronic Current Visit: Yes Qualifiers: Non-pressure ulcer stage: with fat layer exposed Code(s): L98.499 - Non-pressure chronic ulcer of skin of other sites with unspecified severity (6) Obesity (BMI 30.0-34.9) Status: Chronic Current Visit: No Code(s): E66.9 - Obesity, unspecified (7) Amputee, above knee Status: Chronic Current Visit: Yes Qualifiers: Laterality: right Code(s): Z89.619 - Acquired absence of unspecified leg above knee (8) Soft tissue radionecrosis Status: Chronic Current Visit: Yes Code(s): L59.8 - Other specified disorders of the skin and subcutaneous tissue related to radiation; Y84.2 - Radiological procedure and radiotherapy as the cause of abnormal reaction of the patient, or of later complication, without mention of misadventure at the time of the procedure (9) soft tissue radiation injury Status: Chronic Current Visit: Yes History of Present Illness Date of Service: 12/19/17 Chief Complaint: 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 The patient underwent excision of her melanoma with lymphadenectomy in the right groin. She also underwent lengthy radiation treatments at the [facility] in [place], [place]. Melanoma recurred, and the patient was subsequently treated with monoclonal antibodies in 1984. 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 Treatment included local ulcer care and hyperbaric oxygen therapy. She underwent a total of nearly 90 treatments of hyperbaric oxygen therapy. It is known that she tolerated the therapies well, and derived significant benefit. She relates no history of claustrophobia, or other complications related to the hyperbaric oxygen therapy treatments. She has no history of barotrauma to lungs, ears, etc. Her medical history has been reviewed, without any evidence of contraindications to hyperbaric oxygen therapy. Hyperbaric oxygen therapy has been reinitiated, and the patient is currently undergoing hyperbaric oxygen therapy in our facility on a daily basis. She is currently using collagenase Santyl topically to the wound in the right groin. She has undergone a total of 81 sessions of hyperbaric oxygen therapy. We are to continue with hyperbaric oxygen therapy, which is felt to be clinically warranted. The patient's history suggests that the right groin wound in the past responded to hyperbaric oxygen therapy, but required 90 such sessions. It appears as though the patient's current clinical course is mimicking that of the past, and additional hyperbaric oxygen therapy sessions, up to a total of at least 90, is felt to be warranted. 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 She is undergone excision of melanoma from the right calf, with lymphadenectomy of the right groin in the 1969's. She subsequently required surgeries of the right thigh related to osteomyelitis, MRSA infection, and radiation injury to the right femoral artery. Ultimately, the patient required right above-knee amputation, performed in 2000. She also has a remote history of open reduction and internal fixation of a right ankle fracture. Allergies/Adverse Reactions: Allergies No Known Allergies Allergy (Verified 06/20/17 09:22) Home Medications: Ambulatory Orders Medication Instructions Recorded Famotidine 20 mg PO 06/20/17 Pravastatin [Pravachol] 20 mg PO DAILY 06/20/17 - Family History Maternal - - The patient's mother is 98 years of age and relatively healthy. The patient's father at age of 79 with a history of cardiomyopathy. Smoking Status: Former smoker Tobacco Use: Non-smoker Review of Systems Constitutional: Denies: Chills, Fever, Weight Change Eyes: Denies: Pain, Vision Change HEENT: Denies: Difficulty Hearing, Difficulty Swallowing, Sinus Congestion Cardiovascular: Denies: Chest Pain, Palpitations Respiratory: Denies: Cough, Shortness of Breath Gastrointestinal: Denies: Diarrhea, Nausea, Vomiting Genitourinary: Denies: Dysuria, Hematuria Endocrine: Denies: Heat/ Cold Intolerance, Polydipsia, Polyuria Hematologic/ Lymphatic: Denies: Easy Bruising, Easy Bleeding - Physical Exam Vital Signs Temp Pulse Resp BP 98.2 F 88 18 154/89 H 12/19/17 10:42 12/19/17 10:42 12/19/17 10:42 12/19/17 10:42 General: Alert, Oriented x3, Cooperative, No apparent distress, Well developed, Well nourished HEENT: Atraumatic, PERRLA, EOMI, Normocephalic Oral: Moist Mucosa Neck: No JVD Lungs: Normal air movement Abdomen: Non-Distended Extremities: No clubbing, No cyanosis, No edema, No Calf Tenderness, - - A well-healed right above-knee amputation is noted. The patient's right groin wound is generally unchanged in appearance. There is no obvious sign of infection or cellulitis. Nonetheless, given the lack of progress, aerobic and anaerobic cultures were obtained today by swab. Dimensions are documented elsewhere. The base of the ulceration is generally pink and healthy in appearance, with a moderate amount of bioburden. Skin: No rashes Wound Measurements and Assessment WC - Nurse 1 - General Ulcer Measurement Start: 12/08/17 08:18 Freq: Status: Active Protocol: Activity Type Activity Date Activity User E-Sign Co-Sign Detail Recorded Client Recorded Date Recorded By Document 12/19/17 10:42 [facility] [id number] 12/19/17 10:43 [facility] 12/19/17 10:42 Wound Center Nurse 1 [Ulcer Assessment] #5 R Groin -Combined with other wound No -Current Size (cm) - Length 3.8 -Current Size (cm) - Width 0.8 -Current Size (cm) - Depth 0.4 -Total Square Cm 3.04 -Photo Taken No -Epithelialization None Present -Tunneling No -Undermining/Tunneling No -Circular Undermining No -Exudate Amt Small (1-33%) -Exudate Type Serous -Wound Margin Distinct, Outline Attached -Granulation Amt Medium (34-66%) -Granulation Quality [place] -Slough/Fibrin Yes -Necrosis Amt Medium (34-66%) -Necrotic Tissue Type Adherent Slough -Structure Exposed None/Limited to Skin Breakdown -Texture (Blanche-wound Skin Appearance) Scarring -Moisture (Blanche-wound Skin Appearance Assessed ) -Color (Blanche-wound Skin Appearance) Assessed -Temperature (Blanche-wound Skin No Abnormality Appearance) (Pt Warm) -Tenderness on Palpation (Blanceh-wound No Skin Appearance) -Ulcer Cleansing Rinsed/ Irrigated with Saline -Foul Odor after Cleansing No -Anesthetic Used 4% Lidocaine Solution Musculoskeletal: No Muscle Wasting Neurological: Cranial nerves II-XII grossly intact, Neuro grossly intact Psych/Mental Status: Normal Affect, Appropriate, Alert and oriented to time, place, person, mood and affect Debridement Note Laterality: Right - Groin Type of Debridement: Excisional debridement Anesthesia Used: 4% Lidocaine Solution Depth: Down to and including healthy tissue, in the subcutaneous layer Percentage of wound debrided: 100 Instrument Used: 5mm curette Severity: Fat Layer Exposed Amount of bleeding with debridement: Mild Bleeding Controlled with: Compression and gauze Patient tolerated procedure well Assessment/Plan Active Problems History of melanoma (Chronic) Ulcer of right groin (Chronic) Amputee, 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 In the 1969's, she was diagnosed with malignant melanoma of the right calf, with metastasis to lymph nodes in the right groin. She underwent excision of the melanoma with right groin lymphadenectomy. She was subsequently treated with a long series of radiation treatments to the right groin. During the days of her radiation treatment, it is suspected that the radiation techniques were somewhat early in their evolution, and quite likely that the patient received massive doses of radiation exposure, exceeding doses which would be considered appropriate today, with techniques which are primitive by today's standards. As result, the patient has developed soft tissue radiation injury, and has previously been treated at our wound center in the past with a series of approximately 90 hyperbaric oxygen therapy treatments, in 2011. She presented with recurrence of soft tissue radionecrosis in the right groin. Hyperbaric oxygen therapy treatments have been initiated, and the patient has undergone a series of 81 hyperbaric oxygen treatment sessions. She has shown recent benefit from the hyperbaric oxygen treatments, and continued hyperbaric oxygen therapy is felt to be warranted. We are to continue with additional hyperbaric oxygen therapy, felt to be clinically warranted, and in accordance with the patient's past history, in which wound healing was effected only after 90 such sessions. She has tolerated hyperbaric oxygen therapy well, without complaints or complications. Plan: We are to transition to the use of Mary topically every other day. Aerobic and anaerobic culture swabs have been obtained, and results will be awaited. The patient's right groin ulceration is located in an intertriginous zone, subjected to body heat and perspiration. Patient has been urged to keep the area clean and dry. Dr. Carlos's recommendations have been noted. Aggressive surgical intervention has been considered, but there has been hesitance to do so thus far, given the irradiated field, and concerns regarding healing potential. Aggressive surgical excision and debridement of the area has been considered, but appears to be a less than optimal option. There would be concern as to the healing potential in the area involved, given that heavy doses of radiation have been rendered to this area in the past. Furthermore, a radical excision of the wound in this area had been previously considered several years ago, but the patient declined such intervention, and continues to prefer to avoid such a surgical approach. The patient will return in 1 week for reassessment. Hyperbaric oxygen therapy is to be continued. Approval for the use of PuraPly has been denied. We will seek preauthorization for other modalities, including EpiFix. Influenza vaccine was not administered today. Patient is not a smoker. She stands 5 feet 7 inches tall. She weighs 198 pounds. Her BMI is 31, which places her in a class I category. Weight loss has been recommended. She is to collaborate with her primary care physician in this regard.
--- NOTE | 2017-12-19 10:55 | HP.PCM_ITS ---
(1) History of uterine cancer Status: Chronic Current Visit: No Code(s): Z85.42 - Personal history of malignant neoplasm of other parts of uterus (2) History of melanoma Status: Chronic Current Visit: Yes Code(s): Z85.820 - Personal history of malignant melanoma of skin (3) Hyperlipidemia Status: Chronic Current Visit: No Code(s): E78.5 - Hyperlipidemia, unspecified (4) GERD (gastroesophageal reflux disease) Status: Chronic Current Visit: No Code(s): K21.9 - Gastro-esophageal reflux disease without esophagitis (5) Ulcer of right groin Status: Chronic Current Visit: Yes Qualifiers: Non-pressure ulcer stage: with fat layer exposed Code(s): L98.499 - Non-pressure chronic ulcer of skin of other sites with unspecified severity (6) Obesity (BMI 30.0-34.9) Status: Chronic Current Visit: No Code(s): E66.9 - Obesity, unspecified (7) Amputee, above knee Status: Chronic Current Visit: Yes Qualifiers: Laterality: right Code(s): Z89.619 - Acquired absence of unspecified leg above knee (8) Soft tissue radionecrosis Status: Chronic Current Visit: Yes Code(s): L59.8 - Other specified disorders of the skin and subcutaneous tissue related to radiation; Y84.2 - Radiological procedure and radiotherapy as the cause of abnormal reaction of the patient, or of later complication, without mention of misadventure at the time of the procedure (9) soft tissue radiation injury Status: Chronic Current Visit: Yes History of Present Illness Date of Service: 12/19/17 Chief Complaint: 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 The patient underwent excision of her melanoma with lymphadenectomy in the right groin. She also underwent lengthy radiation treatments at the [facility] in [place], [place]. Melanoma recurred, and the patient was subsequently treated with monoclonal antibodies in 1984. 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 Treatment included local ulcer care and hyperbaric oxygen therapy. She underwent a total of nearly 90 treatments of hyperbaric oxygen therapy. It is known that she tolerated the therapies well, and derived significant benefit. She relates no history of claustrophobia, or other complications related to the hyperbaric oxygen therapy treatments. She has no history of barotrauma to lungs , ears, etc. Her medical history has been reviewed, without any evidence of contraindications to hyperbaric oxygen therapy. Hyperbaric oxygen therapy has been reinitiated, and the patient is currently undergoing hyperbaric oxygen therapy in our facility on a daily basis. She is currently using collagenase Santyl topically to the wound in the right groin. She has undergone a total of 81 sessions of hyperbaric oxygen therapy. We are to continue with hyperbaric oxygen therapy, which is felt to be clinically warranted. The patient's history suggests that the right groin wound in the past responded to hyperbaric oxygen therapy, but required 90 such sessions. It appears as though the patient' s current clinical course is mimicking that of the past, and additional hyperbaric oxygen therapy sessions, up to a total of at least 90, is felt to be warranted. 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 She is undergone excision of melanoma from the right calf, with lymphadenectomy of the right groin in the 1969's. She subsequently required surgeries of the right thigh related to osteomyelitis, MRSA infection, and radiation injury to the right femoral artery. Ultimately, the patient required right above-knee amputation, performed in 2000. She also has a remote history of open reduction and internal fixation of a right ankle fracture. Allergies/Adverse Reactions: Allergies No Known Allergies Allergy (Verified 06/20/17 09:22) Home Medications: Ambulatory Orders Medication Instructions Recorded Famotidine 20 mg PO 06/20/17 Pravastatin [Pravachol] 20 mg PO DAILY 06/20/17 - Family History Maternal - - The patient's mother is 98 years of age and relatively healthy. The patient 's father at age of 79 with a history of cardiomyopathy. Smoking Status: Former smoker Tobacco Use: Non-smoker Review of Systems Constitutional: Denies: Chills, Fever, Weight Change Eyes: Denies: Pain, Vision Change HEENT: Denies: Difficulty Hearing, Difficulty Swallowing, Sinus Congestion Cardiovascular: Denies: Chest Pain, Palpitations Respiratory: Denies: Cough, Shortness of Breath Gastrointestinal: Denies: Diarrhea, Nausea, Vomiting Genitourinary: Denies: Dysuria, Hematuria Endocrine: Denies: Heat/ Cold Intolerance, Polydipsia, Polyuria Hematologic/ Lymphatic: Denies: Easy Bruising, Easy Bleeding - Physical Exam Vital Signs Temp Pulse Resp BP 98.2 F 88 18 154/89 H 12/19/17 10:42 12/19/17 10:42 12/19/17 10:42 12/19/17 10:42 General: Alert, Oriented x3, Cooperative, No apparent distress, Well developed, Well nourished HEENT: Atraumatic, PERRLA, EOMI, Normocephalic Oral: Moist Mucosa Neck: No JVD Lungs: Normal air movement Abdomen: Non-Distended Extremities: No clubbing, No cyanosis, No edema, No Calf Tenderness, - - A well- healed right above-knee amputation is noted. The patient's right groin wound is generally unchanged in appearance. There is no obvious sign of infection or cellulitis. Nonetheless, given the lack of progress, aerobic and anaerobic cultures were obtained today by swab. Dimensions are documented elsewhere. The base of the ulceration is generally pink and healthy in appearance, with a moderate amount of bioburden. Skin: No rashes Wound Measurements and Assessment WC - Nurse 1 - General Ulcer Measurement Start: 12/08/17 08:18 Freq: Status: Active Protocol: Activity Type Activity Date Activity User E-Sign Co-Sign Detail Recorded Client Recorded Date Recorded By Document 12/19/17 10:42 [facility] [id number] 12/19/17 10:43 [facility] 12/19/17 10:42 Wound Center Nurse 1 [Ulcer Assessment] #5 R Groin -Combined with other wound No -Current Size (cm) - Length 3.8 -Current Size (cm) - Width 0.8 -Current Size (cm) - Depth 0.4 -Total Square Cm 3.04 -Photo Taken No -Epithelialization None Present -Tunneling No -Undermining/Tunneling No -Circular Undermining No -Exudate Amt Small (1-33%) -Exudate Type Serous -Wound Margin Distinct, Outline Attached -Granulation Amt Medium (34-66%) -Granulation Quality Rifle -Slough/Fibrin Yes -Necrosis Amt Medium (34-66%) -Necrotic Tissue Type Adherent Slough -Structure Exposed None/Limited to Skin Breakdown -Texture (Blanche-wound Skin Appearance) Scarring -Moisture (Blanche-wound Skin Appearance Assessed ) -Color (Blanche-wound Skin Appearance) Assessed -Temperature (Blanche-wound Skin No Abnormality Appearance) (Pt Warm) -Tenderness on Palpation (Blanche-wound No Skin Appearance) -Ulcer Cleansing Rinsed/ Irrigated with Saline -Foul Odor after Cleansing No -Anesthetic Used 4% Lidocaine Solution Musculoskeletal: No Muscle Wasting Neurological: Cranial nerves II-XII grossly intact, Neuro grossly intact Psych/Mental Status: Normal Affect, Appropriate, Alert and oriented to time, place, person, mood and affect Debridement Note Laterality: Right - Groin Type of Debridement: Excisional debridement Anesthesia Used: 4% Lidocaine Solution Depth: Down to and including healthy tissue, in the subcutaneous layer Percentage of wound debrided: 100 Instrument Used: 5mm curette Severity: Fat Layer Exposed Amount of bleeding with debridement: Mild Bleeding Controlled with: Compression and gauze Patient tolerated procedure well Assessment/Plan Active Problems History of melanoma (Chronic) Ulcer of right groin (Chronic) Amputee, 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 In the 1969's, she was diagnosed with malignant melanoma of the right calf, with metastasis to lymph nodes in the right groin. She underwent excision of the melanoma with right groin lymphadenectomy. She was subsequently treated with a long series of radiation treatments to the right groin. During the days of her radiation treatment, it is suspected that the radiation techniques were somewhat early in their evolution, and quite likely that the patient received massive doses of radiation exposure, exceeding doses which would be considered appropriate today , with techniques which are primitive by today's standards. As result, the patient has developed soft tissue radiation injury, and has previously been treated at our wound center in the past with a series of approximately 90 hyperbaric oxygen therapy treatments, in 2011. She presented with recurrence of soft tissue radionecrosis in the right groin. Hyperbaric oxygen therapy treatments have been initiated, and the patient has undergone a series of 81 hyperbaric oxygen treatment sessions. She has shown recent benefit from the hyperbaric oxygen treatments, and continued hyperbaric oxygen therapy is felt to be warranted. We are to continue with additional hyperbaric oxygen therapy, felt to be clinically warranted, and in accordance with the patient's past history, in which wound healing was effected only after 90 such sessions. She has tolerated hyperbaric oxygen therapy well, without complaints or complications. Plan: We are to transition to the use of Mary topically every other day. Aerobic and anaerobic culture swabs have been obtained, and results will be awaited. The patient's right groin ulceration is located in an intertriginous zone, subjected to body heat and perspiration. Patient has been urged to keep the area clean and dry. Dr. Carlos's recommendations have been noted. Aggressive surgical intervention has been considered, but there has been hesitance to do so thus far, given the irradiated field, and concerns regarding healing potential. Aggressive surgical excision and debridement of the area has been considered, but appears to be a less than optimal option. There would be concern as to the healing potential in the area involved, given that heavy doses of radiation have been rendered to this area in the past. Furthermore, a radical excision of the wound in this area had been previously considered several years ago, but the patient declined such intervention, and continues to prefer to avoid such a surgical approach. The patient will return in 1 week for reassessment. Hyperbaric oxygen therapy is to be continued. Approval for the use of PuraPly has been denied. We will seek preauthorization for other modalities, including EpiFix. Influenza vaccine was not administered today. Patient is not a smoker. She stands 5 feet 7 inches tall. She weighs 198 pounds. Her BMI is 31, which places her in a class I category. Weight loss has been recommended. She is to collaborate with her primary care physician in this regard.
--- NOTE | 2017-12-20 09:22 | PCM.HBO.PN ---
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 Progress: Improving. The patient appears to be tolerating hyperbaric oxygen therapy well. Tolerance of hyperbaric oxygen therapy: Tolerating treatments well. Hyperbaric oxygen therapy was administered as per the facility's protocol. The patient tolerated hyperbaric oxygen therapy well, without complaints or complications. Upon emergence from the hyperbaric chamber, patient's vital signs remained stable. The patient was discharged in good condition. 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 The patient's father at age of 79 with a history of cardiomyopathy. Smoking Status: Former smoker Tobacco Use: Non-smoker Physical Exam Vital Signs Temp Pulse Resp BP 98.2 F 88 18 154/89 H 12/19/17 10:42 12/19/17 10:42 12/19/17 10:42 12/19/17 10:42 General: Alert, Oriented x3, Cooperative, No apparent distress HEENT: Atraumatic, TM's Clear Lungs: Normal air movement Psych/Mental Status: Normal Affect Assessment/Plan Active Problems History of melanoma (Chronic) Ulcer of right groin (Chronic) Amputee, above knee (Chronic) Soft tissue radionecrosis (Chronic) soft tissue radiation injury (Chronic) The patient appears to be tolerating hyperbaric oxygen therapy well, which will be continued as per the patient's medical plan.
[2017-12-20 09:23] VITALS: BP 156/92; BP 160/87; PULSE 89; PULSE 91; RESP 16; TEMP 36.8
[2017-12-21 09:15] VITALS: BP 166/86; PULSE 93; RESP 16; TEMP 36.4; TEMP 36.6
--- NOTE | 2017-12-21 10:03 | PCM.HBO.PN ---
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 Progress: Improving. The patient appears to be tolerating hyperbaric oxygen therapy well. Tolerance of hyperbaric oxygen therapy: Hyperbaric oxygen therapy was administered as per the facility's protocol. The patient tolerated hyperbaric oxygen therapy well, without complaints or complications. Upon emergence from the hyperbaric chamber, patient's vital signs remained stable. The patient was discharged in good condition. 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 The patient's father at age of 79 with a history of cardiomyopathy. Smoking Status: Former smoker Tobacco Use: Non-smoker Physical Exam Vital Signs Temp Pulse Resp BP 98.3 F 89 16 156/92 H 12/20/17 09:23 12/20/17 09:23 12/20/17 09:23 12/20/17 09:23 General: Alert, Oriented x3, Cooperative, No apparent distress HEENT: Atraumatic, TM's Clear Lungs: Normal air movement Cardiovascular: Regular rate Psych/Mental Status: Normal Affect Assessment/Plan Active Problems History of melanoma (Chronic) Ulcer of right groin (Chronic) Amputee, above knee (Chronic) Soft tissue radionecrosis (Chronic) soft tissue radiation injury (Chronic) The patient appears to be tolerating hyperbaric oxygen therapy well, which will be continued as per the patient's medical plan.
[2017-12-22 08:18] VITALS: BP 142/98; PULSE 90; RESP 16; TEMP 36.6
--- NOTE | 2017-12-22 09:24 | PCM.HBO.PN ---
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 Progress: Improving. The patient appears to be tolerating hyperbaric oxygen therapy well. Tolerance of hyperbaric oxygen therapy: Hyperbaric oxygen therapy was administered as per the facility's protocol. The patient tolerated hyperbaric oxygen therapy well, without complaints or complications. Upon emergence from the hyperbaric chamber, patient's vital signs remained stable. The patient was discharged in good condition. 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 The patient's father at age of 79 with a history of cardiomyopathy. Smoking Status: Former smoker Tobacco Use: Non-smoker Physical Exam Vital Signs Temp Pulse Resp BP 97.8 F 90 16 142/98 H 12/22/17 08:18 12/22/17 08:18 12/22/17 08:18 12/22/17 08:18 Assessment/Plan Active Problems History of melanoma (Chronic) Ulcer of right groin (Chronic) Amputee, above knee (Chronic) Soft tissue radionecrosis (Chronic) soft tissue radiation injury (Chronic) The patient appears to be tolerating hyperbaric oxygen therapy well, which will be continued as per the patient's medical plan.
[2017-12-25 10:02] VITALS: BP 142/93; BP 160/99; PULSE 84; PULSE 93; RESP 16; TEMP 36.6
[2017-12-26 08:24] VITALS: BP 150/90; PULSE 84; RESP 16; TEMP 36.9; BMI 68.3
--- NOTE | 2017-12-26 08:46 | PCM.WC.HP ---
(1) History of uterine cancer Status: Chronic Current Visit: No Code(s): Z85.42 - Personal history of malignant neoplasm of other parts of uterus (2) History of melanoma Status: Chronic Current Visit: Yes Code(s): Z85.820 - Personal history of malignant melanoma of skin (3) Hyperlipidemia Status: Chronic Current Visit: No Code(s): E78.5 - Hyperlipidemia, unspecified (4) GERD (gastroesophageal reflux disease) Status: Chronic Current Visit: No Code(s): K21.9 - Gastro-esophageal reflux disease without esophagitis (5) Ulcer of right groin Status: Chronic Current Visit: Yes Qualifiers: Non-pressure ulcer stage: with fat layer exposed Code(s): L98.499 - Non-pressure chronic ulcer of skin of other sites with unspecified severity (6) Obesity (BMI 30.0-34.9) Status: Chronic Current Visit: No Code(s): E66.9 - Obesity, unspecified (7) Amputee, above knee Status: Chronic Current Visit: Yes Qualifiers: Laterality: right Code(s): Z89.619 - Acquired absence of unspecified leg above knee (8) Soft tissue radionecrosis Status: Chronic Current Visit: Yes Code(s): L59.8 - Other specified disorders of the skin and subcutaneous tissue related to radiation; Y84.2 - Radiological procedure and radiotherapy as the cause of abnormal reaction of the patient, or of later complication, without mention of misadventure at the time of the procedure (9) soft tissue radiation injury Status: Chronic Current Visit: Yes History of Present Illness Date of Service: 12/26/17 Chief Complaint: 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 The patient underwent excision of her melanoma with lymphadenectomy in the right groin. She also underwent lengthy radiation treatments at the [facility] in [place], [place]. Melanoma recurred, and the patient was subsequently treated with monoclonal antibodies in 1984. 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 Treatment included local ulcer care and hyperbaric oxygen therapy. She underwent a total of nearly 90 treatments of hyperbaric oxygen therapy. It is known that she tolerated the therapies well, and derived significant benefit. She relates no history of claustrophobia, or other complications related to the hyperbaric oxygen therapy treatments. She has no history of barotrauma to lungs, ears, etc. Her medical history has been reviewed, without any evidence of contraindications to hyperbaric oxygen therapy. Hyperbaric oxygen therapy has been reinitiated, and the patient is currently undergoing hyperbaric oxygen therapy in our facility on a daily basis. She is currently using collagenase Santyl topically to the wound in the right groin. She has undergone a total of 81 sessions of hyperbaric oxygen therapy. We are to continue with hyperbaric oxygen therapy, which is felt to be clinically warranted. The patient's history suggests that the right groin wound in the past responded to hyperbaric oxygen therapy, but required 90 such sessions. It appears as though the patient's current clinical course is mimicking that of the past, and additional hyperbaric oxygen therapy sessions, up to a total of at least 90, is felt to be warranted. 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 She is undergone excision of melanoma from the right calf, with lymphadenectomy of the right groin in the 1969's. She subsequently required surgeries of the right thigh related to osteomyelitis, MRSA infection, and radiation injury to the right femoral artery. Ultimately, the patient required right above-knee amputation, performed in 2000. She also has a remote history of open reduction and internal fixation of a right ankle fracture. Allergies/Adverse Reactions: Allergies No Known Allergies Allergy (Verified 06/20/17 09:22) Home Medications: Ambulatory Orders Medication Instructions Recorded Famotidine 20 mg PO 06/20/17 Pravastatin [Pravachol] 20 mg PO DAILY 06/20/17 - Family History Maternal - - The patient's mother is 98 years of age and relatively healthy. The patient's father at age of 79 with a history of cardiomyopathy. Smoking Status: Former smoker Tobacco Use: Non-smoker Review of Systems Constitutional: Denies: Chills, Fever, Weight Change Eyes: Denies: Pain, Vision Change HEENT: Denies: Difficulty Hearing, Difficulty Swallowing, Sinus Congestion Cardiovascular: Denies: Chest Pain, Palpitations Respiratory: Denies: Cough, Shortness of Breath Gastrointestinal: Denies: Diarrhea, Nausea, Vomiting Genitourinary: Denies: Dysuria, Hematuria Endocrine: Denies: Heat/ Cold Intolerance, Polydipsia, Polyuria Hematologic/ Lymphatic: Denies: Easy Bruising, Easy Bleeding - Physical Exam Vital Signs Temp Pulse Resp BP 98.4 F 84 16 150/90 H 12/26/17 08:24 12/26/17 08:24 12/26/17 08:24 12/26/17 08:24 General: Alert, Oriented x3, Cooperative, No apparent distress, Well developed, Well nourished HEENT: Atraumatic, PERRLA, EOMI, Normocephalic Oral: Moist Mucosa Neck: No JVD Lungs: Normal air movement Abdomen: Non-Distended Extremities: No clubbing, No cyanosis, No edema, No Calf Tenderness, - - Right above-knee amputation is noted. The right above-knee amputation site is well-healed. The ulceration on the right groin is slightly improved in appearance. There are increasing areas of pink granulation tissue. There remains a moderate amount of bioburden. There is no obvious sign of infection or cellulitis. Dimensions are documented elsewhere. The patient is noted to have an erythematous, rash on the left upper extremity extending on to the back. The rash is discontinuous. It is said to be painful. It does not appear to be cellulitic in nature. Wound Measurements and Assessment WC - Nurse 1 - General Ulcer Measurement Start: 12/08/17 08:18 Freq: Status: Active Protocol: Activity Type Activity Date Activity User E-Sign Co-Sign Detail Recorded Client Recorded Date Recorded By Document 12/26/17 08:24 JF [id number] 12/26/17 08:26 JF 12/26/17 08:24 Wound Center Nurse 1 [Ulcer Assessment] #5 R Groin -Combined with other wound No -Current Size (cm) - Length 3.9 -Current Size (cm) - Width 1 -Current Size (cm) - Depth 0.6 -Total Square Cm 3.9 -Photo Taken Yes -Epithelialization Medium 34-66% -Tunneling No -Undermining/Tunneling No -Circular Undermining No -Exudate Amt Small (1-33%) -Exudate Type Serosanguineous -Wound Margin Flat & Intact -Granulation Amt Large (67-100%) -Granulation Quality Red -Slough/Fibrin Yes -Necrosis Amt Small (1-33%) -Necrotic Tissue Type Adherent Slough -Structure Exposed N/A -Texture (Blanche-wound Skin Appearance) Assessed Scarring -Moisture (Blanche-wound Skin Appearance Assessed ) Dry/Scaly -Color (Blanche-wound Skin Appearance) Assessed -Temperature (Blanche-wound Skin No Abnormality Appearance) (Pt Warm) -Tenderness on Palpation (Blanche-wound No Skin Appearance) -Ulcer Cleansing Rinsed/ Irrigated with Saline -Foul Odor after Cleansing No -Anesthetic Used 4% Lidocaine Solution [Edema Assessment] -Lower Limb Edema Present NA WC - Nurse 2 - General Ulcer CM Notes Start: 12/08/17 08:18 Freq: Status: Active Protocol: Activity Type Activity Date Activity User E-Sign Co-Sign Detail Recorded Client Recorded Date Recorded By Document 12/26/17 08:37 [email or web address] [id number] 12/26/17 08:45 12/26/17 08:37 Wound Center Nurse 2 [Procedure/Treatment] #5 R Groin -Time 08:45 -Correct Patient Yes -Correct Side, Site, Position Yes -Correct Procedure Yes -Procedure Performed Yes -Type of Procedure Debridement -Clinical Debridement Subcutaneous -Post Debridement Size (cm) - Length 4.0 -Post Debridement Size (cm) - Width 1.0 -Post Debridement Size (cm) - Depth 0.5 -Total Square Cm 4.00 -Wound/Ulcer Outcome Not Healed -Ulcer Cleansing Rinsed/ Irrigated with Saline -Foul Odor after Cleansing No -Bioengineered Tissue No -Topical Lidocaine (%) 4 -Lidocaine (ml) 5 -Bleeding Controlled with NA -Treatment Response Procedure Tolerated Well [See Physician Procedure note for Specifics] Pain Scale: 0-10 Numeric [Pain] -Is Patient Pain Free? Yes Neurological: Cranial nerves II-XII grossly intact, Neuro grossly intact Psych/Mental Status: Normal Affect, Appropriate, Alert and oriented to time, place, person, mood and affect Debridement Note Post-Debridement Measurements/Treatment WC - Nurse 2 - General Ulcer CM Notes Start: 12/08/17 08:18 Freq: Status: Active Protocol: Activity Type Activity Date Activity User E-Sign Co-Sign Detail Recorded Client Recorded Date Recorded By Document 12/26/17 08:37 [id number] 12/26/17 08:45 12/26/17 08:37 Wound Center Nurse 2 #5 R Groin -Time 08:45 -Correct Patient Yes -Correct Side, Site, Position Yes -Correct Procedure Yes -Procedure Performed Yes -Type of Procedure Debridement -Clinical Debridement Subcutaneous -Post Debridement Size (cm) - Length 4.0 -Post Debridement Size (cm) - Width 1.0 -Post Debridement Size (cm) - Depth 0.5 -Total Square Cm 4.00 -Wound/Ulcer Outcome Not Healed -Ulcer Cleansing Rinsed/ Irrigated with Saline -Foul Odor after Cleansing No -Bioengineered Tissue No -Topical Lidocaine (%) 4 -Lidocaine (ml) 5 -Bleeding Controlled with NA -Treatment Response Procedure Tolerated Well Pain Scale: 0-10 Numeric Is Patient Pain Free? 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 In the 1969's, she was diagnosed with malignant melanoma of the right calf, with metastasis to lymph nodes in the right groin. She underwent excision of the melanoma with right groin lymphadenectomy. She was subsequently treated with a long series of radiation treatments to the right groin. During the days of her radiation treatment, it is suspected that the radiation techniques were somewhat early in their evolution, and quite likely that the patient received massive doses of radiation exposure, exceeding doses which would be considered appropriate today, with techniques which are primitive by today's standards. As result, the patient has developed soft tissue radiation injury, and has previously been treated at our wound center in the past with a series of approximately 90 hyperbaric oxygen therapy treatments, in 2011. She presented with recurrence of soft tissue radionecrosis in the right groin. Hyperbaric oxygen therapy treatments have been initiated, and the patient has undergone a series of 81 hyperbaric oxygen treatment sessions. She has shown recent benefit from the hyperbaric oxygen treatments, and continued hyperbaric oxygen therapy is felt to be warranted. We are to continue with additional hyperbaric oxygen therapy, felt to be clinically warranted, and in accordance with the patient's past history, in which wound healing was effected only after 90 such sessions. She has tolerated hyperbaric oxygen therapy well, without complaints or complications. She is approaching her 90th such hyperbaric oxygen session, and it is felt unlikely that her insurance plan will allow additional HBO therapy. We are currently using Mary topically to the right groin ulceration. There appears to be very slight improvement in recent weeks. The patient's cultures have been positive for Staphylococcus aureus, which is rare in amounts. We are to initiate treatment using levofloxacin 500 mg p.o. daily for 7 days. Doxycycline has been used in the past, but with some GI upset. Thus, we will avoid the use of doxycycline. It appears as though the rash which has erupted on the left upper extremity may represent shingles. Patient has been advised to follow-up with her primary care physician, or seek evaluation in an urgent care center. We are to consider the use of skin graft substitutes in the right groin ulceration, but have yet to have obtain preauthorization. Plan: We are to continue the use of Mary topically. Because of wound drainage, the Mary may be changed on a daily basis. The patient is to be placed on levofloxacin 500 mg p.o. daily for 7 days. The patient's right groin ulceration is located in an intertriginous zone, subjected to body heat and perspiration. Patient has been urged to keep the area clean and dry. Dr. Carlos's recommendations have been noted. Aggressive surgical intervention has been considered, but there has been hesitance to do so thus far, given the irradiated field, and concerns regarding healing potential. Aggressive surgical excision and debridement of the area has been considered, but appears to be a less than optimal option. There would be concern as to the healing potential in the area involved, given that heavy doses of radiation have been rendered to this area in the past. Furthermore, a radical excision of the wound in this area had been previously considered several years ago, but the patient declined such intervention, and continues to prefer to avoid such a surgical approach. The patient will return in 1 week for reassessment. Hyperbaric oxygen therapy is to be continued up to the 90th session. Approval for the use of PuraPly has been denied. We will seek preauthorization for other modalities, including EpiFix. Influenza vaccine was not administered today. Patient is not a smoker. She stands 5 feet 7 inches tall. She weighs 198 pounds. Her BMI is 31, which places her in a class I category. Weight loss has been recommended. She is to collaborate with her primary care physician in this regard.
--- NOTE | 2017-12-26 08:55 | HP.PCM_ITS ---
(1) History of uterine cancer Status: Chronic Current Visit: No Code(s): Z85.42 - Personal history of malignant neoplasm of other parts of uterus (2) History of melanoma Status: Chronic Current Visit: Yes Code(s): Z85.820 - Personal history of malignant melanoma of skin (3) Hyperlipidemia Status: Chronic Current Visit: No Code(s): E78.5 - Hyperlipidemia, unspecified (4) GERD (gastroesophageal reflux disease) Status: Chronic Current Visit: No Code(s): K21.9 - Gastro-esophageal reflux disease without esophagitis (5) Ulcer of right groin Status: Chronic Current Visit: Yes Qualifiers: Non-pressure ulcer stage: with fat layer exposed Code(s): L98.499 - Non-pressure chronic ulcer of skin of other sites with unspecified severity (6) Obesity (BMI 30.0-34.9) Status: Chronic Current Visit: No Code(s): E66.9 - Obesity, unspecified (7) Amputee, above knee Status: Chronic Current Visit: Yes Qualifiers: Laterality: right Code(s): Z89.619 - Acquired absence of unspecified leg above knee (8) Soft tissue radionecrosis Status: Chronic Current Visit: Yes Code(s): L59.8 - Other specified disorders of the skin and subcutaneous tissue related to radiation; Y84.2 - Radiological procedure and radiotherapy as the cause of abnormal reaction of the patient, or of later complication, without mention of misadventure at the time of the procedure (9) soft tissue radiation injury Status: Chronic Current Visit: Yes History of Present Illness Date of Service: 12/26/17 Chief Complaint: 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 The patient underwent excision of her melanoma with lymphadenectomy in the right groin. She also underwent lengthy radiation treatments at the [facility] in [place], [place]. Melanoma recurred, and the patient was subsequently treated with monoclonal antibodies in 1984. 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 Treatment included local ulcer care and hyperbaric oxygen therapy. She underwent a total of nearly 90 treatments of hyperbaric oxygen therapy. It is known that she tolerated the therapies well, and derived significant benefit. She relates no history of claustrophobia, or other complications related to the hyperbaric oxygen therapy treatments. She has no history of barotrauma to lungs , ears, etc. Her medical history has been reviewed, without any evidence of contraindications to hyperbaric oxygen therapy. Hyperbaric oxygen therapy has been reinitiated, and the patient is currently undergoing hyperbaric oxygen therapy in our facility on a daily basis. She is currently using collagenase Santyl topically to the wound in the right groin. She has undergone a total of 81 sessions of hyperbaric oxygen therapy. We are to continue with hyperbaric oxygen therapy, which is felt to be clinically warranted. The patient's history suggests that the right groin wound in the past responded to hyperbaric oxygen therapy, but required 90 such sessions. It appears as though the patient' s current clinical course is mimicking that of the past, and additional hyperbaric oxygen therapy sessions, up to a total of at least 90, is felt to be warranted. 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 She is undergone excision of melanoma from the right calf, with lymphadenectomy of the right groin in the 1969's. She subsequently required surgeries of the right thigh related to osteomyelitis, MRSA infection, and radiation injury to the right femoral artery. Ultimately, the patient required right above-knee amputation, performed in 2000. She also has a remote history of open reduction and internal fixation of a right ankle fracture. Allergies/Adverse Reactions: Allergies No Known Allergies Allergy (Verified 06/20/17 09:22) Home Medications: Ambulatory Orders Medication Instructions Recorded Famotidine 20 mg PO 06/20/17 Pravastatin [Pravachol] 20 mg PO DAILY 06/20/17 - Family History Maternal - - The patient's mother is 98 years of age and relatively healthy. The patient 's father at age of 79 with a history of cardiomyopathy. Smoking Status: Former smoker Tobacco Use: Non-smoker Review of Systems Constitutional: Denies: Chills, Fever, Weight Change Eyes: Denies: Pain, Vision Change HEENT: Denies: Difficulty Hearing, Difficulty Swallowing, Sinus Congestion Cardiovascular: Denies: Chest Pain, Palpitations Respiratory: Denies: Cough, Shortness of Breath Gastrointestinal: Denies: Diarrhea, Nausea, Vomiting Genitourinary: Denies: Dysuria, Hematuria Endocrine: Denies: Heat/ Cold Intolerance, Polydipsia, Polyuria Hematologic/ Lymphatic: Denies: Easy Bruising, Easy Bleeding - Physical Exam Vital Signs Temp Pulse Resp BP 98.4 F 84 16 150/90 H 12/26/17 08:24 12/26/17 08:24 12/26/17 08:24 12/26/17 08:24 General: Alert, Oriented x3, Cooperative, No apparent distress, Well developed, Well nourished HEENT: Atraumatic, PERRLA, EOMI, Normocephalic Oral: Moist Mucosa Neck: No JVD Lungs: Normal air movement Abdomen: Non-Distended Extremities: No clubbing, No cyanosis, No edema, No Calf Tenderness, - - Right above-knee amputation is noted. The right above-knee amputation site is well- healed. The ulceration on the right groin is slightly improved in appearance. There are increasing areas of pink granulation tissue. There remains a moderate amount of bioburden. There is no obvious sign of infection or cellulitis. Dimensions are documented elsewhere. The patient is noted to have an erythematous, rash on the left upper extremity extending on to the back. The rash is discontinuous. It is said to be painful. It does not appear to be cellulitic in nature. Wound Measurements and Assessment WC - Nurse 1 - General Ulcer Measurement Start: 12/08/17 08:18 Freq: Status: Active Protocol: Activity Type Activity Date Activity User E-Sign Co-Sign Detail Recorded Client Recorded Date Recorded By Document 12/26/17 08:24 JF [id number] 12/26/17 08:26 JF 12/26/17 08:24 Wound Center Nurse 1 [Ulcer Assessment] #5 R Groin -Combined with other wound No -Current Size (cm) - Length 3.9 -Current Size (cm) - Width 1 -Current Size (cm) - Depth 0.6 -Total Square Cm 3.9 -Photo Taken Yes -Epithelialization Medium 34-66% -Tunneling No -Undermining/Tunneling No -Circular Undermining No -Exudate Amt Small (1-33%) -Exudate Type Serosanguineous -Wound Margin Flat & Intact -Granulation Amt Large (67-100%) -Granulation Quality Red -Slough/Fibrin Yes -Necrosis Amt Small (1-33%) -Necrotic Tissue Type Adherent Slough -Structure Exposed N/A -Texture (Blanche-wound Skin Appearance) Assessed Scarring -Moisture (Blanche-wound Skin Appearance Assessed ) Dry/Scaly -Color (Blanche-wound Skin Appearance) Assessed -Temperature (Blanche-wound Skin No Abnormality Appearance) (Pt Warm) -Tenderness on Palpation (Blanche-wound No Skin Appearance) -Ulcer Cleansing Rinsed/ Irrigated with Saline -Foul Odor after Cleansing No -Anesthetic Used 4% Lidocaine Solution [Edema Assessment] -Lower Limb Edema Present NA WC - Nurse 2 - General Ulcer CM Notes Start: 12/08/17 08:18 Freq: Status: Active Protocol: Activity Type Activity Date Activity User E-Sign Co-Sign Detail Recorded Client Recorded Date Recorded By Document 12/26/17 08:37 [email or web address] [id number] 12/26/17 08:45 12/26/17 08:37 Wound Center Nurse 2 [Procedure/Treatment] #5 R Groin -Time 08:45 -Correct Patient Yes -Correct Side, Site, Position Yes -Correct Procedure Yes -Procedure Performed Yes -Type of Procedure Debridement -Clinical Debridement Subcutaneous -Post Debridement Size (cm) - Length 4.0 -Post Debridement Size (cm) - Width 1.0 -Post Debridement Size (cm) - Depth 0.5 -Total Square Cm 4.00 -Wound/Ulcer Outcome Not Healed -Ulcer Cleansing Rinsed/ Irrigated with Saline -Foul Odor after Cleansing No -Bioengineered Tissue No -Topical Lidocaine (%) 4 -Lidocaine (ml) 5 -Bleeding Controlled with NA -Treatment Response Procedure Tolerated Well [See Physician Procedure note for Specifics] Pain Scale: 0-10 Numeric [Pain] -Is Patient Pain Free? Yes Neurological: Cranial nerves II-XII grossly intact, Neuro grossly intact Psych/Mental Status: Normal Affect, Appropriate, Alert and oriented to time, place, person, mood and affect Debridement Note Post-Debridement Measurements/Treatment WC - Nurse 2 - General Ulcer CM Notes Start: 12/08/17 08:18 Freq: Status: Active Protocol: Activity Type Activity Date Activity User E-Sign Co-Sign Detail Recorded Client Recorded Date Recorded By Document 12/26/17 08:37 [id number] 12/26/17 08:45 12/26/17 08:37 Wound Center Nurse 2 #5 R Groin -Time 08:45 -Correct Patient Yes -Correct Side, Site, Position Yes -Correct Procedure Yes -Procedure Performed Yes -Type of Procedure Debridement -Clinical Debridement Subcutaneous -Post Debridement Size (cm) - Length 4.0 -Post Debridement Size (cm) - Width 1.0 -Post Debridement Size (cm) - Depth 0.5 -Total Square Cm 4.00 -Wound/Ulcer Outcome Not Healed -Ulcer Cleansing Rinsed/ Irrigated with Saline -Foul Odor after Cleansing No -Bioengineered Tissue No -Topical Lidocaine (%) 4 -Lidocaine (ml) 5 -Bleeding Controlled with NA -Treatment Response Procedure Tolerated Well Pain Scale: 0-10 Numeric Is Patient Pain Free? 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 In the 1969's, she was diagnosed with malignant melanoma of the right calf, with metastasis to lymph nodes in the right groin. She underwent excision of the melanoma with right groin lymphadenectomy. She was subsequently treated with a long series of radiation treatments to the right groin. During the days of her radiation treatment, it is suspected that the radiation techniques were somewhat early in their evolution, and quite likely that the patient received massive doses of radiation exposure, exceeding doses which would be considered appropriate today , with techniques which are primitive by today's standards. As result, the patient has developed soft tissue radiation injury, and has previously been treated at our wound center in the past with a series of approximately 90 hyperbaric oxygen therapy treatments, in 2011. She presented with recurrence of soft tissue radionecrosis in the right groin. Hyperbaric oxygen therapy treatments have been initiated, and the patient has undergone a series of 81 hyperbaric oxygen treatment sessions. She has shown recent benefit from the hyperbaric oxygen treatments, and continued hyperbaric oxygen therapy is felt to be warranted. We are to continue with additional hyperbaric oxygen therapy, felt to be clinically warranted, and in accordance with the patient's past history, in which wound healing was effected only after 90 such sessions. She has tolerated hyperbaric oxygen therapy well, without complaints or complications. She is approaching her 90th such hyperbaric oxygen session, and it is felt unlikely that her insurance plan will allow additional HBO therapy. We are currently using Mary topically to the right groin ulceration. There appears to be very slight improvement in recent weeks. The patient's cultures have been positive for Staphylococcus aureus, which is rare in amounts. We are to initiate treatment using levofloxacin 500 mg p.o. daily for 7 days. Doxycycline has been used in the past, but with some GI upset. Thus, we will avoid the use of doxycycline. It appears as though the rash which has erupted on the left upper extremity may represent shingles. Patient has been advised to follow-up with her primary care physician, or seek evaluation in an urgent care center. We are to consider the use of skin graft substitutes in the right groin ulceration, but have yet to have obtain preauthorization. Plan: We are to continue the use of Mary topically. Because of wound drainage , the Mary may be changed on a daily basis. The patient is to be placed on levofloxacin 500 mg p.o. daily for 7 days. The patient's right groin ulceration is located in an intertriginous zone, subjected to body heat and perspiration. Patient has been urged to keep the area clean and dry. Dr. Carlos 's recommendations have been noted. Aggressive surgical intervention has been considered, but there has been hesitance to do so thus far, given the irradiated field, and concerns regarding healing potential. Aggressive surgical excision and debridement of the area has been considered, but appears to be a less than optimal option. There would be concern as to the healing potential in the area involved, given that heavy doses of radiation have been rendered to this area in the past. Furthermore, a radical excision of the wound in this area had been previously considered several years ago, but the patient declined such intervention, and continues to prefer to avoid such a surgical approach. The patient will return in 1 week for reassessment. Hyperbaric oxygen therapy is to be continued up to the 90th session. Approval for the use of PuraPly has been denied. We will seek preauthorization for other modalities, including EpiFix. Influenza vaccine was not administered today. Patient is not a smoker. She stands 5 feet 7 inches tall. She weighs 198 pounds. Her BMI is 31, which places her in a class I category. Weight loss has been recommended. She is to collaborate with her primary care physician in this regard.
[2017-12-26 09:42] VITALS: BP 150/90; BP 159/95; PULSE 84; RESP 16; TEMP 36.9
--- NOTE | 2017-12-26 12:37 | PCM.HBO.PN ---
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 Progress: Improving. The patient appears to be tolerating hyperbaric oxygen therapy well. Session represents the 87th such session of hyperbaric oxygen therapy. Tolerance of hyperbaric oxygen therapy: Hyperbaric oxygen therapy was administered as per the facility's protocol. The patient tolerated hyperbaric oxygen therapy well, without complaints or complications. Upon emergence from the hyperbaric chamber, patient's vital signs remained stable. The patient was discharged in good condition. 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 The patient's father at age of 79 with a history of cardiomyopathy. Smoking Status: Former smoker Tobacco Use: Non-smoker Physical Exam Vital Signs Temp Pulse Resp BP 98.4 F 84 16 150/90 H 12/26/17 09:42 12/26/17 09:42 12/26/17 09:42 12/26/17 09:42 General: Alert, Oriented x3, Cooperative, No apparent distress, Well developed, Well nourished HEENT: Atraumatic, PERRLA, EOMI, Normocephalic Lungs: Normal air movement Psych/Mental Status: Normal Affect, Appropriate, Alert and oriented to time, place, person, mood and affect Assessment/Plan Active Problems History of melanoma (Chronic) Ulcer of right groin (Chronic) Amputee, above knee (Chronic) Soft tissue radionecrosis (Chronic) soft tissue radiation injury (Chronic) The patient appears to be tolerating hyperbaric oxygen therapy well, which will be continued as per the patient's medical plan.
[2017-12-27 08:30] VITALS: BP 163/98; PULSE 103; RESP 16; TEMP 36.8; TEMP 37
--- NOTE | 2017-12-27 09:33 | PCM.HBO.PN ---
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 Progress: Improving. The patient appears to be tolerating hyperbaric oxygen therapy well. Tolerance of hyperbaric oxygen therapy: Hyperbaric oxygen therapy was administered as per the facility's protocol. The patient tolerated hyperbaric oxygen therapy well, without complaints or complications. Upon emergence from the hyperbaric chamber, patient's vital signs remained stable. The patient was discharged in good condition. 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 The patient's father at age of 79 with a history of cardiomyopathy. Smoking Status: Former smoker Tobacco Use: Non-smoker Physical Exam Vital Signs Temp Pulse Resp BP 98.6 F 103 H 16 163/98 H 12/27/17 08:30 12/27/17 08:30 12/27/17 08:30 12/27/17 08:30 General: Alert, Oriented x3, Cooperative, No apparent distress HEENT: Atraumatic, TM's Clear Lungs: Normal air movement Cardiovascular: Tachycardic Psych/Mental Status: Normal Affect Assessment/Plan Active Problems History of melanoma (Chronic) Ulcer of right groin (Chronic) Amputee, above knee (Chronic) Soft tissue radionecrosis (Chronic) soft tissue radiation injury (Chronic) The patient appears to be tolerating hyperbaric oxygen therapy well, which will be continued as per the patient's medical plan.
[2017-12-28 08:24] VITALS: BP 147/87; PULSE 95; RESP 16; TEMP 36.5; TEMP 36.8
--- NOTE | 2017-12-28 08:28 | PCM.HBO.PN ---
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 Progress: Improving. The patient appears to be tolerating hyperbaric oxygen therapy well. Tolerance of hyperbaric oxygen therapy: Hyperbaric oxygen therapy was administered as per the facility's protocol. The patient tolerated hyperbaric oxygen therapy well, without complaints or complications. Upon emergence from the hyperbaric chamber, patient's vital signs remained stable. The patient was discharged in good condition. 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 The patient's father at age of 79 with a history of cardiomyopathy. Smoking Status: Former smoker Tobacco Use: Non-smoker Physical Exam Vital Signs Temp Pulse Resp BP 97.7 F L 95 16 147/87 H 12/28/17 08:24 12/28/17 08:24 12/28/17 08:24 12/28/17 08:24 General: Alert, Oriented x3, Cooperative, No apparent distress HEENT: Atraumatic, TM's Clear Lungs: Normal air movement Psych/Mental Status: Normal Affect Assessment/Plan Active Problems History of melanoma (Chronic) Ulcer of right groin (Chronic) Amputee, above knee (Chronic) Soft tissue radionecrosis (Chronic) soft tissue radiation injury (Chronic) The patient appears to be tolerating hyperbaric oxygen therapy well, which will be continued as per the patient's medical plan.
--- NOTE | 2017-12-28 14:35 | WC ---
Rx called in to [facility] for Bactrim DS #20 to be taken q12h for [address] Ava De Jesus. Patient notified via phone call. Levaquin was discontinued.
[2018-01-02 08:37] VITALS: BP 170/83; PULSE 100; RESP 18; TEMP 35.7; BMI 68.3
--- NOTE | 2018-01-02 09:30 | PCM.WC.HP ---
(1) History of uterine cancer Status: Chronic Current Visit: No Code(s): Z85.42 - Personal history of malignant neoplasm of other parts of uterus (2) History of melanoma Status: Chronic Current Visit: Yes Code(s): Z85.820 - Personal history of malignant melanoma of skin (3) Hyperlipidemia Status: Chronic Current Visit: No Code(s): E78.5 - Hyperlipidemia, unspecified (4) GERD (gastroesophageal reflux disease) Status: Chronic Current Visit: No Code(s): K21.9 - Gastro-esophageal reflux disease without esophagitis (5) Ulcer of right groin Status: Chronic Current Visit: Yes Qualifiers: Non-pressure ulcer stage: with fat layer exposed Code(s): L98.499 - Non-pressure chronic ulcer of skin of other sites with unspecified severity (6) Obesity (BMI 30.0-34.9) Status: Chronic Current Visit: No Code(s): E66.9 - Obesity, unspecified (7) Amputee, above knee Status: Chronic Current Visit: Yes Qualifiers: Laterality: right Code(s): Z89.619 - Acquired absence of unspecified leg above knee (8) Soft tissue radionecrosis Status: Chronic Current Visit: Yes Code(s): L59.8 - Other specified disorders of the skin and subcutaneous tissue related to radiation; Y84.2 - Radiological procedure and radiotherapy as the cause of abnormal reaction of the patient, or of later complication, without mention of misadventure at the time of the procedure (9) soft tissue radiation injury Status: Chronic Current Visit: Yes History of Present Illness Date of Service: 01/02/18 Chief Complaint: 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 The patient underwent excision of her melanoma with lymphadenectomy in the right groin. She also underwent lengthy radiation treatments at the [facility] in [place], [place]. Melanoma recurred, and the patient was subsequently treated with monoclonal antibodies in 1984. 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 Treatment included local ulcer care and hyperbaric oxygen therapy. She underwent a total of nearly 90 treatments of hyperbaric oxygen therapy. It is known that she tolerated the therapies well, and derived significant benefit. She relates no history of claustrophobia, or other complications related to the hyperbaric oxygen therapy treatments. She has no history of barotrauma to lungs, ears, etc. Her medical history has been reviewed, without any evidence of contraindications to hyperbaric oxygen therapy. Hyperbaric oxygen therapy has been reinitiated, and the patient is currently undergoing hyperbaric oxygen therapy in our facility on a daily basis. She is currently using collagenase Santyl topically to the wound in the right groin. She has undergone a total of 81 sessions of hyperbaric oxygen therapy. We are to continue with hyperbaric oxygen therapy, which is felt to be clinically warranted. The patient's history suggests that the right groin wound in the past responded to hyperbaric oxygen therapy, but required 90 such sessions. It appears as though the patient's current clinical course is mimicking that of the past, and additional hyperbaric oxygen therapy sessions, up to a total of at least 90, is felt to be warranted. 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 She is undergone excision of melanoma from the right calf, with lymphadenectomy of the right groin in the 1969's. She subsequently required surgeries of the right thigh related to osteomyelitis, MRSA infection, and radiation injury to the right femoral artery. Ultimately, the patient required right above-knee amputation, performed in 2000. She also has a remote history of open reduction and internal fixation of a right ankle fracture. Allergies/Adverse Reactions: Allergies No Known Allergies Allergy (Verified 06/20/17 09:22) Home Medications: Ambulatory Orders Medication Instructions Recorded Famotidine 20 mg PO 06/20/17 Pravastatin [Pravachol] 20 mg PO DAILY 06/20/17 - Family History Maternal - - The patient's mother is 98 years of age and relatively healthy. The patient's father at age of 79 with a history of cardiomyopathy. Smoking Status: Former smoker Tobacco Use: Non-smoker Review of Systems Constitutional: Denies: Chills, Fever, Weight Change Eyes: Denies: Pain, Vision Change HEENT: Denies: Difficulty Hearing, Difficulty Swallowing, Sinus Congestion Cardiovascular: Denies: Chest Pain, Palpitations Respiratory: Denies: Cough, Shortness of Breath Gastrointestinal: Denies: Diarrhea, Nausea, Vomiting Genitourinary: Denies: Dysuria, Hematuria Endocrine: Denies: Heat/ Cold Intolerance, Polydipsia, Polyuria Hematologic/ Lymphatic: Denies: Easy Bruising, Easy Bleeding - Physical Exam Vital Signs Temp Pulse Resp BP 96.3 F L 100 18 170/83 H 01/02/18 08:37 01/02/18 08:37 01/02/18 08:37 01/02/18 08:37 General: Alert, Oriented x3, Cooperative, No apparent distress, Well developed, Well nourished HEENT: Atraumatic, PERRLA, EOMI, Normocephalic Oral: Moist Mucosa Neck: No JVD Lungs: Normal air movement Abdomen: Non-Distended Extremities: No clubbing, No cyanosis, No edema, No Calf Tenderness, - - The right groin wound is little changed in size or appearance. Dimensions are documented elsewhere. There is no sign of infection or cellulitis. There is only a small amount of bioburden. Skin: No rashes Wound Measurements and Assessment WC - Nurse 1 - General Ulcer Measurement Start: 12/08/17 08:18 Freq: Status: Active Protocol: Activity Type Activity Date Activity User E-Sign Co-Sign Detail Recorded Client Recorded Date Recorded By Document 01/02/18 08:37 AL [id number] 01/02/18 08:45 AL 01/02/18 08:37 Wound Center Nurse 1 [Ulcer Assessment] #5 R Groin -Combined with other wound No -Current Size (cm) - Length 4.5 -Current Size (cm) - Width 1.5 -Current Size (cm) - Depth 0.5 -Total Square Cm 6.75 -Photo Taken No -Epithelialization None Present -Tunneling No -Undermining/Tunneling No -Circular Undermining No -Classification - Thickness Full Thickness without Exposed Support Structure -Exudate Amt Small (1-33%) -Exudate Type Yellow/Green -Wound Margin Fibrotic Scar, Thickened Scar -Granulation Amt Small (1-33%) -Granulation Quality [place] Red -Slough/Fibrin Yes -Necrosis Amt Medium (34-66%) -Necrotic Tissue Type Adherent Slough -Structure Exposed Fascia Fat Layer Exposed -Texture (Blanche-wound Skin Appearance) Assessed Scarring -Moisture (Blanche-wound Skin Appearance Assessed ) Maceration -Color (Blanche-wound Skin Appearance) Assessed Palor -Temperature (Blanche-wound Skin No Abnormality Appearance) (Pt Warm) -Tenderness on Palpation (Blanche-wound No Skin Appearance) -Ulcer Cleansing Rinsed/ Irrigated with Saline -Foul Odor after Cleansing No -Anesthetic Used 4% Lidocaine Solution [Edema Assessment] -Lower Limb Edema Present NA WC - Nurse 2 - General Ulcer CM Notes Start: 12/08/17 08:18 Freq: Status: Active Protocol: Activity Type Activity Date Activity User E-Sign Co-Sign Detail Recorded Client Recorded Date Recorded By Document 01/02/18 09:02 [id number] 01/02/18 09:15 01/02/18 09:02 Wound Center Nurse 2 [Procedure/Treatment] #5 R Groin -Time 09:03 -Correct Patient Yes -Correct Side, Site, Position Yes -Correct Procedure Yes -Procedure Performed Yes -Type of Procedure Debridement -Clinical Debridement Subcutaneous -Post Debridement Size (cm) - Length 4.4 -Post Debridement Size (cm) - Width 1.0 -Post Debridement Size (cm) - Depth 0.5 -Total Square Cm 4.40 -Wound/Ulcer Outcome Not Healed -Ulcer Cleansing Not Cleansed -Foul Odor after Cleansing No -Bioengineered Tissue Yes -Type of bioengineered Tissue EPIFIX -Expiration Date 10/08/22 -Product Lot Number [id number] -Percent Used 100 -Saline Lot Number [id number] -Bleeding Controlled with NA -Treatment Response Procedure Tolerated Well [See Physician Procedure note for Specifics] Pain Scale: 0-10 Numeric [Pain] -Is Patient Pain Free? Yes Neurological: Cranial nerves II-XII grossly intact, Neuro grossly intact Psych/Mental Status: Normal Affect, Appropriate, Alert and oriented to time, place, person, mood and affect Debridement Note Post-Debridement Measurements/Treatment WC - Nurse 2 - General Ulcer CM Notes Start: 12/08/17 08:18 Freq: Status: Active Protocol: Activity Type Activity Date Activity User E-Sign Co-Sign Detail Recorded Client Recorded Date Recorded By Document 12/26/17 08:37 [email or web address] 12/26/17 08:45 Document 01/02/18 09:02 [id number] 01/02/18 09:15 12/26/17 01/02/18 08:37 09:02 Wound Center Nurse 2 #5 R Groin -Time 08:45 09:03 -Correct Patient Yes Yes -Correct Side, Site, Position Yes Yes -Correct Procedure Yes Yes -Procedure Performed Yes Yes -Type of Procedure Debridement Debridement -Clinical Debridement Subcutaneous Subcutaneous -Post Debridement Size (cm) - Length 4.0 4.4 -Post Debridement Size (cm) - Width 1.0 1.0 -Post Debridement Size (cm) - Depth 0.5 0.5 -Total Square Cm 4.00 4.40 -Wound/Ulcer Outcome Not Healed Not Healed -Ulcer Cleansing Rinsed/ Not Cleansed Irrigated with Saline -Foul Odor after Cleansing No No -Bioengineered Tissue No Yes -Type of bioengineered Tissue EPIFIX -Expiration Date 10/08/22 -Product Lot Number [id number] -Percent Used 100 -Saline Lot Number [id number] -Topical Lidocaine (%) 4 -Lidocaine (ml) 5 -Bleeding Controlled with NA NA -Treatment Response Procedure Procedure Tolerated Well Tolerated Well Pain Scale: 0-10 Numeric Is Patient Pain Free? Yes Yes Laterality: Right - Groin Type of Debridement: Excisional debridement Anesthesia Used: 4% Lidocaine Solution Depth: Down to and including healthy tissue, in the subcutaneous layer Percentage of wound debrided: 100 Instrument Used: 5mm curette Severity: Fat Layer Exposed Amount of bleeding with debridement: Mild Bleeding Controlled with: Compression and gauze Patient tolerated procedure well Following a standard excisional debridement of the right groin wound, a 2 cm x 2 cm EpiFix allograft was placed topically. It was cut and fashioned to the appropriate size and shape, and was placed topically within the wound, covering all surfaces. Wound veil was then placed, followed by gauze, and the entire site was anchored in place using Steri-Strips. The procedure was well-tolerated. 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 In the 1970's, she was diagnosed with malignant melanoma of the right calf, with metastasis to lymph nodes in the right groin. She underwent excision of the melanoma with right groin lymphadenectomy. She was subsequently treated with a long series of radiation treatments to the right groin. During the days of her radiation treatment, it is suspected that the radiation techniques were somewhat early in their evolution, and quite likely that the patient received massive doses of radiation exposure, exceeding doses which would be considered appropriate today, with techniques which are primitive by today's standards. As result, the patient has developed soft tissue radiation injury, and has previously been treated at our wound center in the past with a series of approximately 90 hyperbaric oxygen therapy treatments, in 2011. She presented with recurrence of soft tissue radionecrosis in the right groin. Hyperbaric oxygen therapy treatments have been initiated, and the patient has undergone a series of 81 hyperbaric oxygen treatment sessions. She has shown recent benefit from the hyperbaric oxygen treatments, and continued hyperbaric oxygen therapy is felt to be warranted. We are to continue with additional hyperbaric oxygen therapy, felt to be clinically warranted, and in accordance with the patient's past history, in which wound healing was effected only after 90 such sessions. She has tolerated hyperbaric oxygen therapy well, without complaints or complications. She has completed her 90 sessions of hyperbaric oxygen treatments. She has nearly completed her course of Bactrim double strength twice daily in response to recent wound culture. Plan: Dr. Carlos's recommendations have been noted. Aggressive surgical intervention has been considered, but there has been hesitance to do so thus far, given the irradiated field, and concerns regarding healing potential. Aggressive surgical excision and debridement of the area has been considered, but appears to be a less than optimal option. There would be concern as to the healing potential in the area involved, given that heavy doses of radiation have been rendered to this area in the past. Furthermore, a radical excision of the wound in this area had been previously considered several years ago, but the patient declined such intervention, and continues to prefer to avoid such a surgical approach. The patient will return in 1 week for reassessment. An allograft has been applied, and we will reassess the wound upon her return in 1 week. Influenza vaccine was not administered today. Patient is not a smoker. She stands 5 feet 7 inches tall. She weighs 198 pounds. Her BMI is 31, which places her in a class I category. Weight loss has been recommended. She is to collaborate with her primary care physician in this regard.
--- NOTE | 2018-01-02 09:39 | HP.PCM_ITS ---
(1) History of uterine cancer Status: Chronic Current Visit: No Code(s): Z85.42 - Personal history of malignant neoplasm of other parts of uterus (2) History of melanoma Status: Chronic Current Visit: Yes Code(s): Z85.820 - Personal history of malignant melanoma of skin (3) Hyperlipidemia Status: Chronic Current Visit: No Code(s): E78.5 - Hyperlipidemia, unspecified (4) GERD (gastroesophageal reflux disease) Status: Chronic Current Visit: No Code(s): K21.9 - Gastro-esophageal reflux disease without esophagitis (5) Ulcer of right groin Status: Chronic Current Visit: Yes Qualifiers: Non-pressure ulcer stage: with fat layer exposed Code(s): L98.499 - Non-pressure chronic ulcer of skin of other sites with unspecified severity (6) Obesity (BMI 30.0-34.9) Status: Chronic Current Visit: No Code(s): E66.9 - Obesity, unspecified (7) Amputee, above knee Status: Chronic Current Visit: Yes Qualifiers: Laterality: right Code(s): Z89.619 - Acquired absence of unspecified leg above knee (8) Soft tissue radionecrosis Status: Chronic Current Visit: Yes Code(s): L59.8 - Other specified disorders of the skin and subcutaneous tissue related to radiation; Y84.2 - Radiological procedure and radiotherapy as the cause of abnormal reaction of the patient, or of later complication, without mention of misadventure at the time of the procedure (9) soft tissue radiation injury Status: Chronic Current Visit: Yes History of Present Illness Date of Service: 01/02/18 Chief Complaint: 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 The patient underwent excision of her melanoma with lymphadenectomy in the right groin. She also underwent lengthy radiation treatments at the [facility] in [place], [place]. Melanoma recurred, and the patient was subsequently treated with monoclonal antibodies in 1984. 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 Treatment included local ulcer care and hyperbaric oxygen therapy. She underwent a total of nearly 90 treatments of hyperbaric oxygen therapy. It is known that she tolerated the therapies well, and derived significant benefit. She relates no history of claustrophobia, or other complications related to the hyperbaric oxygen therapy treatments. She has no history of barotrauma to lungs , ears, etc. Her medical history has been reviewed, without any evidence of contraindications to hyperbaric oxygen therapy. Hyperbaric oxygen therapy has been reinitiated, and the patient is currently undergoing hyperbaric oxygen therapy in our facility on a daily basis. She is currently using collagenase Santyl topically to the wound in the right groin. She has undergone a total of 81 sessions of hyperbaric oxygen therapy. We are to continue with hyperbaric oxygen therapy, which is felt to be clinically warranted. The patient's history suggests that the right groin wound in the past responded to hyperbaric oxygen therapy, but required 90 such sessions. It appears as though the patient' s current clinical course is mimicking that of the past, and additional hyperbaric oxygen therapy sessions, up to a total of at least 90, is felt to be warranted. 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 She is undergone excision of melanoma from the right calf, with lymphadenectomy of the right groin in the 1969's. She subsequently required surgeries of the right thigh related to osteomyelitis, MRSA infection, and radiation injury to the right femoral artery. Ultimately, the patient required right above-knee amputation, performed in 2000. She also has a remote history of open reduction and internal fixation of a right ankle fracture. Allergies/Adverse Reactions: Allergies No Known Allergies Allergy (Verified 06/20/17 09:22) Home Medications: Ambulatory Orders Medication Instructions Recorded Famotidine 20 mg PO 06/20/17 Pravastatin [Pravachol] 20 mg PO DAILY 06/20/17 - Family History Maternal - - The patient's mother is 98 years of age and relatively healthy. The patient 's father at age of 79 with a history of cardiomyopathy. Smoking Status: Former smoker Tobacco Use: Non-smoker Review of Systems Constitutional: Denies: Chills, Fever, Weight Change Eyes: Denies: Pain, Vision Change HEENT: Denies: Difficulty Hearing, Difficulty Swallowing, Sinus Congestion Cardiovascular: Denies: Chest Pain, Palpitations Respiratory: Denies: Cough, Shortness of Breath Gastrointestinal: Denies: Diarrhea, Nausea, Vomiting Genitourinary: Denies: Dysuria, Hematuria Endocrine: Denies: Heat/ Cold Intolerance, Polydipsia, Polyuria Hematologic/ Lymphatic: Denies: Easy Bruising, Easy Bleeding - Physical Exam Vital Signs Temp Pulse Resp BP 96.3 F L 100 18 170/83 H 01/02/18 08:37 01/02/18 08:37 01/02/18 08:37 01/02/18 08:37 General: Alert, Oriented x3, Cooperative, No apparent distress, Well developed, Well nourished HEENT: Atraumatic, PERRLA, EOMI, Normocephalic Oral: Moist Mucosa Neck: No JVD Lungs: Normal air movement Abdomen: Non-Distended Extremities: No clubbing, No cyanosis, No edema, No Calf Tenderness, - - The right groin wound is little changed in size or appearance. Dimensions are documented elsewhere. There is no sign of infection or cellulitis. There is only a small amount of bioburden. Skin: No rashes Wound Measurements and Assessment WC - Nurse 1 - General Ulcer Measurement Start: 12/08/17 08:18 Freq: Status: Active Protocol: Activity Type Activity Date Activity User E-Sign Co-Sign Detail Recorded Client Recorded Date Recorded By Document 01/02/18 08:37 FL [id number] 01/02/18 08:45 FL 01/02/18 08:37 Wound Center Nurse 1 [Ulcer Assessment] #5 R Groin -Combined with other wound No -Current Size (cm) - Length 4.5 -Current Size (cm) - Width 1.5 -Current Size (cm) - Depth 0.5 -Total Square Cm 6.75 -Photo Taken No -Epithelialization None Present -Tunneling No -Undermining/Tunneling No -Circular Undermining No -Classification - Thickness Full Thickness without Exposed Support Structure -Exudate Amt Small (1-33%) -Exudate Type Yellow/Green -Wound Margin Fibrotic Scar, Thickened Scar -Granulation Amt Small (1-33%) -Granulation Quality [place] Red -Slough/Fibrin Yes -Necrosis Amt Medium (34-66%) -Necrotic Tissue Type Adherent Slough -Structure Exposed Fascia Fat Layer Exposed -Texture (Blanche-wound Skin Appearance) Assessed Scarring -Moisture (Blanche-wound Skin Appearance Assessed ) Maceration -Color (Blanche-wound Skin Appearance) Assessed Palor -Temperature (Blanche-wound Skin No Abnormality Appearance) (Pt Warm) -Tenderness on Palpation (Blanche-wound No Skin Appearance) -Ulcer Cleansing Rinsed/ Irrigated with Saline -Foul Odor after Cleansing No -Anesthetic Used 4% Lidocaine Solution [Edema Assessment] -Lower Limb Edema Present NA WC - Nurse 2 - General Ulcer CM Notes Start: 12/08/17 08:18 Freq: Status: Active Protocol: Activity Type Activity Date Activity User E-Sign Co-Sign Detail Recorded Client Recorded Date Recorded By Document 01/02/18 09:02 [id number] 01/02/18 09:15 01/02/18 09:02 Wound Center Nurse 2 [Procedure/Treatment] #5 R Groin -Time 09:03 -Correct Patient Yes -Correct Side, Site, Position Yes -Correct Procedure Yes -Procedure Performed Yes -Type of Procedure Debridement -Clinical Debridement Subcutaneous -Post Debridement Size (cm) - Length 4.4 -Post Debridement Size (cm) - Width 1.0 -Post Debridement Size (cm) - Depth 0.5 -Total Square Cm 4.40 -Wound/Ulcer Outcome Not Healed -Ulcer Cleansing Not Cleansed -Foul Odor after Cleansing No -Bioengineered Tissue Yes -Type of bioengineered Tissue EPIFIX -Expiration Date 10/08/22 -Product Lot Number [id number] -Percent Used 100 -Saline Lot Number [id number] -Bleeding Controlled with NA -Treatment Response Procedure Tolerated Well [See Physician Procedure note for Specifics] Pain Scale: 0-10 Numeric [Pain] -Is Patient Pain Free? Yes Neurological: Cranial nerves II-XII grossly intact, Neuro grossly intact Psych/Mental Status: Normal Affect, Appropriate, Alert and oriented to time, place, person, mood and affect Debridement Note Post-Debridement Measurements/Treatment WC - Nurse 2 - General Ulcer CM Notes Start: 12/08/17 08:18 Freq: Status: Active Protocol: Activity Type Activity Date Activity User E-Sign Co-Sign Detail Recorded Client Recorded Date Recorded By Document 12/26/17 08:37 [id number] 12/26/17 08:45 Document 01/02/18 09:02 [id number] 01/02/18 09:15 12/26/17 01/02/18 08:37 09:02 Wound Center Nurse 2 #5 R Groin -Time 08:45 09:03 -Correct Patient Yes Yes -Correct Side, Site, Position Yes Yes -Correct Procedure Yes Yes -Procedure Performed Yes Yes -Type of Procedure Debridement Debridement -Clinical Debridement Subcutaneous Subcutaneous -Post Debridement Size (cm) - Length 4.0 4.4 -Post Debridement Size (cm) - Width 1.0 1.0 -Post Debridement Size (cm) - Depth 0.5 0.5 -Total Square Cm 4.00 4.40 -Wound/Ulcer Outcome Not Healed Not Healed -Ulcer Cleansing Rinsed/ Not Cleansed Irrigated with Saline -Foul Odor after Cleansing No No -Bioengineered Tissue No Yes -Type of bioengineered Tissue EPIFIX -Expiration Date 10/08/22 -Product Lot Number [id number] -Percent Used 100 -Saline Lot Number [id number] -Topical Lidocaine (%) 4 -Lidocaine (ml) 5 -Bleeding Controlled with NA NA -Treatment Response Procedure Procedure Tolerated Well Tolerated Well Pain Scale: 0-10 Numeric Is Patient Pain Free? Yes Yes Laterality: Right - Groin Type of Debridement: Excisional debridement Anesthesia Used: 4% Lidocaine Solution Depth: Down to and including healthy tissue, in the subcutaneous layer Percentage of wound debrided: 100 Instrument Used: 5mm curette Severity: Fat Layer Exposed Amount of bleeding with debridement: Mild Bleeding Controlled with: Compression and gauze Patient tolerated procedure well Following a standard excisional debridement of the right groin wound, a 2 cm x 2 cm EpiFix allograft was placed topically. It was cut and fashioned to the appropriate size and shape, and was placed topically within the wound, covering all surfaces. Wound veil was then placed, followed by gauze, and the entire site was anchored in place using Steri-Strips. The procedure was well- tolerated. 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 In the 1970's, she was diagnosed with malignant melanoma of the right calf, with metastasis to lymph nodes in the right groin. She underwent excision of the melanoma with right groin lymphadenectomy. She was subsequently treated with a long series of radiation treatments to the right groin. During the days of her radiation treatment, it is suspected that the radiation techniques were somewhat early in their evolution, and quite likely that the patient received massive doses of radiation exposure, exceeding doses which would be considered appropriate today , with techniques which are primitive by today's standards. As result, the patient has developed soft tissue radiation injury, and has previously been treated at our wound center in the past with a series of approximately 90 hyperbaric oxygen therapy treatments, in 2011. She presented with recurrence of soft tissue radionecrosis in the right groin. Hyperbaric oxygen therapy treatments have been initiated, and the patient has undergone a series of 81 hyperbaric oxygen treatment sessions. She has shown recent benefit from the hyperbaric oxygen treatments, and continued hyperbaric oxygen therapy is felt to be warranted. We are to continue with additional hyperbaric oxygen therapy, felt to be clinically warranted, and in accordance with the patient's past history, in which wound healing was effected only after 90 such sessions. She has tolerated hyperbaric oxygen therapy well, without complaints or complications. She has completed her 90 sessions of hyperbaric oxygen treatments. She has nearly completed her course of Bactrim double strength twice daily in response to recent wound culture. Plan: Dr. Carlos's recommendations have been noted. Aggressive surgical intervention has been considered, but there has been hesitance to do so thus far , given the irradiated field, and concerns regarding healing potential. Aggressive surgical excision and debridement of the area has been considered, but appears to be a less than optimal option. There would be concern as to the healing potential in the area involved, given that heavy doses of radiation have been rendered to this area in the past. Furthermore, a radical excision of the wound in this area had been previously considered several years ago, but the patient declined such intervention, and continues to prefer to avoid such a surgical approach. The patient will return in 1 week for reassessment. An allograft has been applied, and we will reassess the wound upon her return in 1 week. Influenza vaccine was not administered today. Patient is not a smoker. She stands 5 feet 7 inches tall. She weighs 198 pounds. Her BMI is 31, which places her in a class I category. Weight loss has been recommended. She is to collaborate with her primary care physician in this regard.
== END 2018-01-06 23:59 ==
LOC: WC 08:00
PROVIDERS: Family Provider Family Medicine; PCP Family Medicine; Visit Provider Surgery
DX: L59.8 Other specified disorders of the skin and subcutaneous tissue related to radiation (principal); Y84.2 Radiological procedure and radiotherapy as the cause of abnormal reaction of the patient, or of later complication, without mention of misadventure at the time of the procedure; Z89.619 Acquired absence of unspecified leg above knee; E78.5 Hyperlipidemia, unspecified; K21.9 Gastro-esophageal reflux disease without esophagitis; Z85.820 Personal history of malignant melanoma of skin; Z87.891 Personal history of nicotine dependence; L98.492 Non-pressure chronic ulcer of skin of other sites with fat layer exposed
CPT/HCPCS: 11042; 15271; 99183; Q4131; G0277

== ENCOUNTER 2018-02-06 08:00 | Outpatient (RCR) | payer OTHER, SELFPAY ==
[2018-01-07 00:33] VITALS: BP 170/83; PULSE 100; RESP 18; TEMP 35.7; BMI 68.3
[2018-01-09 08:24] VITALS: BP 157/75; PULSE 102; RESP 18; TEMP 37; BMI 68.3
--- NOTE | 2018-01-09 09:51 | PCM.WC.HP ---
(1) History of uterine cancer Status: Chronic Current Visit: No Code(s): Z85.42 - Personal history of malignant neoplasm of other parts of uterus (2) History of melanoma Status: Chronic Current Visit: Yes Code(s): Z85.820 - Personal history of malignant melanoma of skin (3) Hyperlipidemia Status: Chronic Current Visit: No Code(s): E78.5 - Hyperlipidemia, unspecified (4) GERD (gastroesophageal reflux disease) Status: Chronic Current Visit: No Code(s): K21.9 - Gastro-esophageal reflux disease without esophagitis (5) Ulcer of right groin Status: Chronic Current Visit: Yes Qualifiers: Non-pressure ulcer stage: with fat layer exposed Code(s): L98.499 - Non-pressure chronic ulcer of skin of other sites with unspecified severity (6) Obesity (BMI 30.0-34.9) Status: Chronic Current Visit: No Code(s): E66.9 - Obesity, unspecified (7) Amputee, above knee Status: Chronic Current Visit: Yes Qualifiers: Laterality: right Code(s): Z89.619 - Acquired absence of unspecified leg above knee (8) Soft tissue radionecrosis Status: Chronic Current Visit: Yes Code(s): L59.8 - Other specified disorders of the skin and subcutaneous tissue related to radiation; Y84.2 - Radiological procedure and radiotherapy as the cause of abnormal reaction of the patient, or of later complication, without mention of misadventure at the time of the procedure (9) soft tissue radiation injury Status: Chronic Current Visit: Yes History of Present Illness Date of Service: 01/09/18 Chief Complaint: 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 The patient underwent excision of her melanoma with lymphadenectomy in the right groin. She also underwent lengthy radiation treatments at the [facility] in [place], [place]. Melanoma recurred, and the patient was subsequently treated with monoclonal antibodies in 1984. 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 Treatment included local ulcer care and hyperbaric oxygen therapy. She underwent a total of nearly 90 treatments of hyperbaric oxygen therapy. It is known that she tolerated the therapies well, and derived significant benefit. She relates no history of claustrophobia, or other complications related to the hyperbaric oxygen therapy treatments. She has no history of barotrauma to lungs, ears, etc. Her medical history has been reviewed, without any evidence of contraindications to hyperbaric oxygen therapy. Hyperbaric oxygen therapy has been reinitiated, and the patient is currently undergoing hyperbaric oxygen therapy in our facility on a daily basis. She is currently using collagenase Santyl topically to the wound in the right groin. She has undergone a total of 81 sessions of hyperbaric oxygen therapy. We are to continue with hyperbaric oxygen therapy, which is felt to be clinically warranted. The patient's history suggests that the right groin wound in the past responded to hyperbaric oxygen therapy, but required 90 such sessions. It appears as though the patient's current clinical course is mimicking that of the past, and additional hyperbaric oxygen therapy sessions, up to a total of at least 90, was felt to be warranted. 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 She is undergone excision of melanoma from the right calf, with lymphadenectomy of the right groin in the 1969's. She subsequently required surgeries of the right thigh related to osteomyelitis, MRSA infection, and radiation injury to the right femoral artery. Ultimately, the patient required right above-knee amputation, performed in 2000. She also has a remote history of open reduction and internal fixation of a right ankle fracture. Allergies/Adverse Reactions: Allergies No Known Allergies Allergy (Verified 06/20/17 09:22) Home Medications: Ambulatory Orders Medication Instructions Recorded Famotidine 20 mg PO 06/20/17 Pravastatin [Pravachol] 20 mg PO DAILY 06/20/17 - Family History Maternal - - The patient's mother is 98 years of age and relatively healthy. The patient's father at age of 79 with a history of cardiomyopathy. Smoking Status: Former smoker Tobacco Use: Non-smoker Review of Systems Constitutional: Denies: Chills, Fever, Weight Change Eyes: Denies: Pain, Vision Change HEENT: Denies: Difficulty Hearing, Difficulty Swallowing, Sinus Congestion Cardiovascular: Denies: Chest Pain, Palpitations Respiratory: Denies: Cough, Shortness of Breath Gastrointestinal: Denies: Diarrhea, Nausea, Vomiting Genitourinary: Denies: Dysuria, Hematuria Endocrine: Denies: Heat/ Cold Intolerance, Polydipsia, Polyuria Hematologic/ Lymphatic: Denies: Easy Bruising, Easy Bleeding - Physical Exam Vital Signs Temp Pulse Resp BP 98.6 F 102 H 18 157/75 H 01/09/18 08:24 01/09/18 08:24 01/09/18 08:24 01/09/18 08:24 General: Alert, Oriented x3, Cooperative, No apparent distress, Well developed, Well nourished HEENT: Atraumatic, PERRLA, EOMI, Normocephalic Oral: Moist Mucosa Neck: No JVD Lungs: Normal air movement Abdomen: Non-Distended Extremities: No clubbing, No cyanosis, No edema, No Calf Tenderness, - - Patient has a right above-knee amputation. Amputation stump is well-healed. The wound in the right groin persists, though with some improvement. There is evidence of peripheral epithelialization. There is no sign of infection or cellulitis. Dimensions are documented elsewhere. There is a mild amount of bioburden. Skin: No rashes Wound Measurements and Assessment WC - Nurse 1 - General Ulcer Measurement Start: 01/09/18 08:24 Freq: Status: Active Protocol: Activity Type Activity Date Activity User E-Sign Co-Sign Detail Recorded Client Recorded Date Recorded By Document 01/09/18 08:24 [id number] 01/09/18 08:26 TM 01/09/18 08:24 Wound Center Nurse 1 [Ulcer Assessment] #5 R Groin -Combined with other wound No -Current Size (cm) - Length 4.0 -Current Size (cm) - Width 1.0 -Current Size (cm) - Depth 0.5 -Total Square Cm 4.00 -Photo Taken No -Epithelialization Small 1-33% -Tunneling No -Undermining/Tunneling No -Circular Undermining No -Classification - Thickness Full Thickness without Exposed Support Structure -Exudate Amt Small (1-33%) -Exudate Type Serosanguineous -Wound Margin Distinct, Outline Attached -Granulation Amt Medium (34-66%) -Granulation Quality Domino -Slough/Fibrin Yes -Necrosis Amt Medium (34-66%) -Necrotic Tissue Type Adherent Slough -Structure Exposed Fascia Fat Layer Exposed -Texture (Blanche-wound Skin Appearance) Assessed Scarring -Moisture (Blanche-wound Skin Appearance No Abnormality ) -Color (Blanche-wound Skin Appearance) No Abnormality Assessed -Temperature (Blanche-wound Skin No Abnormality Appearance) (Pt Warm) -Tenderness on Palpation (Blanche-wound No Skin Appearance) -Ulcer Cleansing Rinsed/ Irrigated with Saline -Foul Odor after Cleansing No -Anesthetic Used 4% Lidocaine Solution [Edema Assessment] -Lower Limb Edema Present No WC - Nurse 2 - General Ulcer CM Notes Start: 01/09/18 08:24 Freq: Status: Active Protocol: Activity Type Activity Date Activity User E-Sign Co-Sign Detail Recorded Client Recorded Date Recorded By Document 01/09/18 09:32 [email or web address] [id number] 01/09/18 09:43 KEILA 01/09/18 09:32 Wound Center Nurse 2 [Procedure/Treatment] #5 R Groin -Time 09:33 -Correct Patient Yes -Correct Side, Site, Position Yes -Correct Procedure Yes -Procedure Performed Yes -Type of Procedure Debridement -Clinical Debridement Subcutaneous -Post Debridement Size (cm) - Length 4.1 -Post Debridement Size (cm) - Width 1.1 -Post Debridement Size (cm) - Depth 0.5 -Total Square Cm 4.51 -Wound/Ulcer Outcome Not Healed -Ulcer Cleansing Rinsed/ Irrigated with Saline -Foul Odor after Cleansing No -Bioengineered Tissue Yes -Type of bioengineered Tissue EPIFIX -Expiration Date 09/07/22 -Product Lot Number [id number] -Percent Used 100 -Saline Lot Number [id number] -Topical Lidocaine (%) 4 -Lidocaine (ml) 5 -Bleeding Controlled with NA -Treatment Response Procedure Tolerated Well [See Physician Procedure note for Specifics] Pain Scale: 0-10 Numeric [Pain] -Is Patient Pain Free? Yes Neurological: Cranial nerves II-XII grossly intact, Neuro grossly intact Psych/Mental Status: Normal Affect, Appropriate, Alert and oriented to time, place, person, mood and affect Debridement Note Post-Debridement Measurements/Treatment WC - Nurse 2 - General Ulcer CM Notes Start: 01/09/18 08:24 Freq: Status: Active Protocol: Activity Type Activity Date Activity User E-Sign Co-Sign Detail Recorded Client Recorded Date Recorded By Document 01/09/18 09:32 [id number] 01/09/18 09:43 KEILA 01/09/18 09:32 Wound Center Nurse 2 #5 R Groin -Time 09:33 -Correct Patient Yes -Correct Side, Site, Position Yes -Correct Procedure Yes -Procedure Performed Yes -Type of Procedure Debridement -Clinical Debridement Subcutaneous -Post Debridement Size (cm) - Length 4.1 -Post Debridement Size (cm) - Width 1.1 -Post Debridement Size (cm) - Depth 0.5 -Total Square Cm 4.51 -Wound/Ulcer Outcome Not Healed -Ulcer Cleansing Rinsed/ Irrigated with Saline -Foul Odor after Cleansing No -Bioengineered Tissue Yes -Type of bioengineered Tissue EPIFIX -Expiration Date 09/07/22 -Product Lot Number [id number] -Percent Used 100 -Saline Lot Number [id number] -Topical Lidocaine (%) 4 -Lidocaine (ml) 5 -Bleeding Controlled with NA -Treatment Response Procedure Tolerated Well Pain Scale: 0-10 Numeric Is Patient Pain Free? Yes Laterality: Right - Groin Type of Debridement: Excisional debridement Anesthesia Used: 4% Lidocaine Solution Depth: Down to and including healthy tissue, in the subcutaneous layer Percentage of wound debrided: 100 Instrument Used: 5mm curette Severity: Fat Layer Exposed Amount of bleeding with debridement: Mild Bleeding Controlled with: Compression and gauze Patient tolerated procedure well Following a standard excisional debridement of the right groin ulceration, an EpiFix graft was applied. A 2 cm x 2 cm allograft was selected. It was cut and fashioned to the appropriate size and shape. Was then placed on the surface of the ulceration. Wound veil and gauze were then placed, and the site was anchored using Steri-Strips. The procedure was well-tolerated. 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 In the 1970's, she was diagnosed with malignant melanoma of the right calf, with metastasis to lymph nodes in the right groin. She underwent excision of the melanoma with right groin lymphadenectomy. She was subsequently treated with a long series of radiation treatments to the right groin. During the days of her radiation treatment, it is suspected that the radiation techniques were somewhat early in their evolution, and quite likely that the patient received massive doses of radiation exposure, exceeding doses which would be considered appropriate today, with techniques which are primitive by today's standards. As result, the patient has developed soft tissue radiation injury, and has previously been treated at our wound center in the past with a series of approximately 90 hyperbaric oxygen therapy treatments, in 2011. She presented with recurrence of soft tissue radionecrosis in the right groin. Hyperbaric oxygen therapy treatments have been initiated, and the patient has undergone a series of 81 hyperbaric oxygen treatment sessions. She has shown recent benefit from the hyperbaric oxygen treatments, and continued hyperbaric oxygen therapy is felt to be warranted. We are to continue with additional hyperbaric oxygen therapy, felt to be clinically warranted, and in accordance with the patient's past history, in which wound healing was effected only after 90 such sessions. She has tolerated hyperbaric oxygen therapy well, without complaints or complications. She has completed her 90 sessions of hyperbaric oxygen treatments. She has completed her course of Bactrim double strength twice daily in response to recent wound culture. Plan: Dr. Carlos's recommendations have been noted. Aggressive surgical intervention has been considered, but there has been hesitance to do so thus far, given the irradiated field, and concerns regarding healing potential. Aggressive surgical excision and debridement of the area has been considered, but appears to be a less than optimal option. There would be concern as to the healing potential in the area involved, given that heavy doses of radiation have been rendered to this area in the past. Furthermore, a radical excision of the wound in this area had been previously considered several years ago, but the patient declined such intervention, and continues to prefer to avoid such a surgical approach. The patient will return in 1 week for reassessment. An EpiFix allograft has been applied, and we will reassess the wound upon her return in 1 week. Today's allograft represents the second such application of EpiFix. Influenza vaccine was not administered today. Patient is not a smoker. She stands 5 feet 7 inches tall. She weighs 198 pounds. Her BMI is 31, which places her in a class I category. Weight loss has been recommended. She is to collaborate with her primary care physician in this regard.
--- NOTE | 2018-01-09 09:57 | HP.PCM_ITS ---
(1) History of uterine cancer Status: Chronic Current Visit: No Code(s): Z85.42 - Personal history of malignant neoplasm of other parts of uterus (2) History of melanoma Status: Chronic Current Visit: Yes Code(s): Z85.820 - Personal history of malignant melanoma of skin (3) Hyperlipidemia Status: Chronic Current Visit: No Code(s): E78.5 - Hyperlipidemia, unspecified (4) GERD (gastroesophageal reflux disease) Status: Chronic Current Visit: No Code(s): K21.9 - Gastro-esophageal reflux disease without esophagitis (5) Ulcer of right groin Status: Chronic Current Visit: Yes Qualifiers: Non-pressure ulcer stage: with fat layer exposed Code(s): L98.499 - Non-pressure chronic ulcer of skin of other sites with unspecified severity (6) Obesity (BMI 30.0-34.9) Status: Chronic Current Visit: No Code(s): E66.9 - Obesity, unspecified (7) Amputee, above knee Status: Chronic Current Visit: Yes Qualifiers: Laterality: right Code(s): Z89.619 - Acquired absence of unspecified leg above knee (8) Soft tissue radionecrosis Status: Chronic Current Visit: Yes Code(s): L59.8 - Other specified disorders of the skin and subcutaneous tissue related to radiation; Y84.2 - Radiological procedure and radiotherapy as the cause of abnormal reaction of the patient, or of later complication, without mention of misadventure at the time of the procedure (9) soft tissue radiation injury Status: Chronic Current Visit: Yes History of Present Illness Date of Service: 01/09/18 Chief Complaint: 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 The patient underwent excision of her melanoma with lymphadenectomy in the right groin. She also underwent lengthy radiation treatments at the [facility] in [place], [place]. Melanoma recurred, and the patient was subsequently treated with monoclonal antibodies in 1984. 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 Treatment included local ulcer care and hyperbaric oxygen therapy. She underwent a total of nearly 90 treatments of hyperbaric oxygen therapy. It is known that she tolerated the therapies well, and derived significant benefit. She relates no history of claustrophobia, or other complications related to the hyperbaric oxygen therapy treatments. She has no history of barotrauma to lungs , ears, etc. Her medical history has been reviewed, without any evidence of contraindications to hyperbaric oxygen therapy. Hyperbaric oxygen therapy has been reinitiated, and the patient is currently undergoing hyperbaric oxygen therapy in our facility on a daily basis. She is currently using collagenase Santyl topically to the wound in the right groin. She has undergone a total of 81 sessions of hyperbaric oxygen therapy. We are to continue with hyperbaric oxygen therapy, which is felt to be clinically warranted. The patient's history suggests that the right groin wound in the past responded to hyperbaric oxygen therapy, but required 90 such sessions. It appears as though the patient' s current clinical course is mimicking that of the past, and additional hyperbaric oxygen therapy sessions, up to a total of at least 90, was felt to be warranted. 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 She is undergone excision of melanoma from the right calf, with lymphadenectomy of the right groin in the 1969's. She subsequently required surgeries of the right thigh related to osteomyelitis, MRSA infection, and radiation injury to the right femoral artery. Ultimately, the patient required right above-knee amputation, performed in 2000. She also has a remote history of open reduction and internal fixation of a right ankle fracture. Allergies/Adverse Reactions: Allergies No Known Allergies Allergy (Verified 06/20/17 09:22) Home Medications: Ambulatory Orders Medication Instructions Recorded Famotidine 20 mg PO 06/20/17 Pravastatin [Pravachol] 20 mg PO DAILY 06/20/17 - Family History Maternal - - The patient's mother is 98 years of age and relatively healthy. The patient 's father at age of 79 with a history of cardiomyopathy. Smoking Status: Former smoker Tobacco Use: Non-smoker Review of Systems Constitutional: Denies: Chills, Fever, Weight Change Eyes: Denies: Pain, Vision Change HEENT: Denies: Difficulty Hearing, Difficulty Swallowing, Sinus Congestion Cardiovascular: Denies: Chest Pain, Palpitations Respiratory: Denies: Cough, Shortness of Breath Gastrointestinal: Denies: Diarrhea, Nausea, Vomiting Genitourinary: Denies: Dysuria, Hematuria Endocrine: Denies: Heat/ Cold Intolerance, Polydipsia, Polyuria Hematologic/ Lymphatic: Denies: Easy Bruising, Easy Bleeding - Physical Exam Vital Signs Temp Pulse Resp BP 98.6 F 102 H 18 157/75 H 01/09/18 08:24 01/09/18 08:24 01/09/18 08:24 01/09/18 08:24 General: Alert, Oriented x3, Cooperative, No apparent distress, Well developed, Well nourished HEENT: Atraumatic, PERRLA, EOMI, Normocephalic Oral: Moist Mucosa Neck: No JVD Lungs: Normal air movement Abdomen: Non-Distended Extremities: No clubbing, No cyanosis, No edema, No Calf Tenderness, - - Patient has a right above-knee amputation. Amputation stump is well-healed. The wound in the right groin persists, though with some improvement. There is evidence of peripheral epithelialization. There is no sign of infection or cellulitis. Dimensions are documented elsewhere. There is a mild amount of bioburden. Skin: No rashes Wound Measurements and Assessment WC - Nurse 1 - General Ulcer Measurement Start: 01/09/18 08:24 Freq: Status: Active Protocol: Activity Type Activity Date Activity User E-Sign Co-Sign Detail Recorded Client Recorded Date Recorded By Document 01/09/18 08:24 [id number] 01/09/18 08:26 TM 01/09/18 08:24 Wound Center Nurse 1 [Ulcer Assessment] #5 R Groin -Combined with other wound No -Current Size (cm) - Length 4.0 -Current Size (cm) - Width 1.0 -Current Size (cm) - Depth 0.5 -Total Square Cm 4.00 -Photo Taken No -Epithelialization Small 1-33% -Tunneling No -Undermining/Tunneling No -Circular Undermining No -Classification - Thickness Full Thickness without Exposed Support Structure -Exudate Amt Small (1-33%) -Exudate Type Serosanguineous -Wound Margin Distinct, Outline Attached -Granulation Amt Medium (34-66%) -Granulation Quality Declo -Slough/Fibrin Yes -Necrosis Amt Medium (34-66%) -Necrotic Tissue Type Adherent Slough -Structure Exposed Fascia Fat Layer Exposed -Texture (Blanche-wound Skin Appearance) Assessed Scarring -Moisture (Blanche-wound Skin Appearance No Abnormality ) -Color (Blanche-wound Skin Appearance) No Abnormality Assessed -Temperature (Blanche-wound Skin No Abnormality Appearance) (Pt Warm) -Tenderness on Palpation (Blanche-wound No Skin Appearance) -Ulcer Cleansing Rinsed/ Irrigated with Saline -Foul Odor after Cleansing No -Anesthetic Used 4% Lidocaine Solution [Edema Assessment] -Lower Limb Edema Present No WC - Nurse 2 - General Ulcer CM Notes Start: 01/09/18 08:24 Freq: Status: Active Protocol: Activity Type Activity Date Activity User E-Sign Co-Sign Detail Recorded Client Recorded Date Recorded By Document 01/09/18 09:32 KEILA [id number] 01/09/18 09:43 KEILA 01/09/18 09:32 Wound Center Nurse 2 [Procedure/Treatment] #5 R Groin -Time 09:33 -Correct Patient Yes -Correct Side, Site, Position Yes -Correct Procedure Yes -Procedure Performed Yes -Type of Procedure Debridement -Clinical Debridement Subcutaneous -Post Debridement Size (cm) - Length 4.1 -Post Debridement Size (cm) - Width 1.1 -Post Debridement Size (cm) - Depth 0.5 -Total Square Cm 4.51 -Wound/Ulcer Outcome Not Healed -Ulcer Cleansing Rinsed/ Irrigated with Saline -Foul Odor after Cleansing No -Bioengineered Tissue Yes -Type of bioengineered Tissue EPIFIX -Expiration Date 09/07/22 -Product Lot Number [id number] -Percent Used 100 -Saline Lot Number [id number] -Topical Lidocaine (%) 4 -Lidocaine (ml) 5 -Bleeding Controlled with NA -Treatment Response Procedure Tolerated Well [See Physician Procedure note for Specifics] Pain Scale: 0-10 Numeric [Pain] -Is Patient Pain Free? Yes Neurological: Cranial nerves II-XII grossly intact, Neuro grossly intact Psych/Mental Status: Normal Affect, Appropriate, Alert and oriented to time, place, person, mood and affect Debridement Note Post-Debridement Measurements/Treatment WC - Nurse 2 - General Ulcer CM Notes Start: 01/09/18 08:24 Freq: Status: Active Protocol: Activity Type Activity Date Activity User E-Sign Co-Sign Detail Recorded Client Recorded Date Recorded By Document 01/09/18 09:32 [id number] 01/09/18 09:43 KEILA 01/09/18 09:32 Wound Center Nurse 2 #5 R Groin -Time 09:33 -Correct Patient Yes -Correct Side, Site, Position Yes -Correct Procedure Yes -Procedure Performed Yes -Type of Procedure Debridement -Clinical Debridement Subcutaneous -Post Debridement Size (cm) - Length 4.1 -Post Debridement Size (cm) - Width 1.1 -Post Debridement Size (cm) - Depth 0.5 -Total Square Cm 4.51 -Wound/Ulcer Outcome Not Healed -Ulcer Cleansing Rinsed/ Irrigated with Saline -Foul Odor after Cleansing No -Bioengineered Tissue Yes -Type of bioengineered Tissue EPIFIX -Expiration Date 09/07/22 -Product Lot Number [id number] -Percent Used 100 -Saline Lot Number [id number] -Topical Lidocaine (%) 4 -Lidocaine (ml) 5 -Bleeding Controlled with NA -Treatment Response Procedure Tolerated Well Pain Scale: 0-10 Numeric Is Patient Pain Free? Yes Laterality: Right - Groin Type of Debridement: Excisional debridement Anesthesia Used: 4% Lidocaine Solution Depth: Down to and including healthy tissue, in the subcutaneous layer Percentage of wound debrided: 100 Instrument Used: 5mm curette Severity: Fat Layer Exposed Amount of bleeding with debridement: Mild Bleeding Controlled with: Compression and gauze Patient tolerated procedure well Following a standard excisional debridement of the right groin ulceration, an EpiFix graft was applied. A 2 cm x 2 cm allograft was selected. It was cut and fashioned to the appropriate size and shape. Was then placed on the surface of the ulceration. Wound veil and gauze were then placed, and the site was anchored using Steri-Strips. The procedure was well-tolerated. 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 In the 1970's, she was diagnosed with malignant melanoma of the right calf, with metastasis to lymph nodes in the right groin. She underwent excision of the melanoma with right groin lymphadenectomy. She was subsequently treated with a long series of radiation treatments to the right groin. During the days of her radiation treatment, it is suspected that the radiation techniques were somewhat early in their evolution, and quite likely that the patient received massive doses of radiation exposure, exceeding doses which would be considered appropriate today , with techniques which are primitive by today's standards. As result, the patient has developed soft tissue radiation injury, and has previously been treated at our wound center in the past with a series of approximately 90 hyperbaric oxygen therapy treatments, in 2011. She presented with recurrence of soft tissue radionecrosis in the right groin. Hyperbaric oxygen therapy treatments have been initiated, and the patient has undergone a series of 81 hyperbaric oxygen treatment sessions. She has shown recent benefit from the hyperbaric oxygen treatments, and continued hyperbaric oxygen therapy is felt to be warranted. We are to continue with additional hyperbaric oxygen therapy, felt to be clinically warranted, and in accordance with the patient's past history, in which wound healing was effected only after 90 such sessions. She has tolerated hyperbaric oxygen therapy well, without complaints or complications. She has completed her 90 sessions of hyperbaric oxygen treatments. She has completed her course of Bactrim double strength twice daily in response to recent wound culture. Plan: Dr. Carlos's recommendations have been noted. Aggressive surgical intervention has been considered, but there has been hesitance to do so thus far , given the irradiated field, and concerns regarding healing potential. Aggressive surgical excision and debridement of the area has been considered, but appears to be a less than optimal option. There would be concern as to the healing potential in the area involved, given that heavy doses of radiation have been rendered to this area in the past. Furthermore, a radical excision of the wound in this area had been previously considered several years ago, but the patient declined such intervention, and continues to prefer to avoid such a surgical approach. The patient will return in 1 week for reassessment. An EpiFix allograft has been applied, and we will reassess the wound upon her return in 1 week. Today's allograft represents the second such application of EpiFix. Influenza vaccine was not administered today. Patient is not a smoker. She stands 5 feet 7 inches tall. She weighs 198 pounds. Her BMI is 31 , which places her in a class I category. Weight loss has been recommended. She is to collaborate with her primary care physician in this regard.
[2018-01-16 09:10] VITALS: BP 143/94; PULSE 92; RESP 18; TEMP 36.4; BMI 68.3
--- NOTE | 2018-01-16 10:05 | PCM.WC.HP ---
(1) History of uterine cancer Status: Chronic Current Visit: No Code(s): Z85.42 - Personal history of malignant neoplasm of other parts of uterus (2) History of melanoma Status: Chronic Current Visit: Yes Code(s): Z85.820 - Personal history of malignant melanoma of skin (3) Hyperlipidemia Status: Chronic Current Visit: No Code(s): E78.5 - Hyperlipidemia, unspecified (4) GERD (gastroesophageal reflux disease) Status: Chronic Current Visit: No Code(s): K21.9 - Gastro-esophageal reflux disease without esophagitis (5) Ulcer of right groin Status: Chronic Current Visit: Yes Qualifiers: Non-pressure ulcer stage: with fat layer exposed Code(s): L98.499 - Non-pressure chronic ulcer of skin of other sites with unspecified severity (6) Obesity (BMI 30.0-34.9) Status: Chronic Current Visit: No Code(s): E66.9 - Obesity, unspecified (7) Amputee, above knee Status: Chronic Current Visit: Yes Qualifiers: Laterality: right Code(s): Z89.619 - Acquired absence of unspecified leg above knee (8) Soft tissue radionecrosis Status: Chronic Current Visit: Yes Code(s): L59.8 - Other specified disorders of the skin and subcutaneous tissue related to radiation; Y84.2 - Radiological procedure and radiotherapy as the cause of abnormal reaction of the patient, or of later complication, without mention of misadventure at the time of the procedure (9) soft tissue radiation injury Status: Chronic Current Visit: Yes History of Present Illness Date of Service: 01/16/18 Chief Complaint: 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 The patient underwent excision of her melanoma with lymphadenectomy in the right groin. She also underwent lengthy radiation treatments at the [facility] in [place], [place]. Melanoma recurred, and the patient was subsequently treated with monoclonal antibodies in 1984. 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 Treatment included local ulcer care and hyperbaric oxygen therapy. She underwent a total of nearly 90 treatments of hyperbaric oxygen therapy. It is known that she tolerated the therapies well, and derived significant benefit. She relates no history of claustrophobia, or other complications related to the hyperbaric oxygen therapy treatments. She has no history of barotrauma to lungs, ears, etc. Her medical history has been reviewed, without any evidence of contraindications to hyperbaric oxygen therapy. Hyperbaric oxygen therapy has been reinitiated, and the patient is currently undergoing hyperbaric oxygen therapy in our facility on a daily basis. She is currently using collagenase Santyl topically to the wound in the right groin. She has undergone a total of 81 sessions of hyperbaric oxygen therapy. We are to continue with hyperbaric oxygen therapy, which is felt to be clinically warranted. The patient's history suggests that the right groin wound in the past responded to hyperbaric oxygen therapy, but required 90 such sessions. It appears as though the patient's current clinical course is mimicking that of the past, and additional hyperbaric oxygen therapy sessions, up to a total of at least 90, was felt to be warranted, and have been completed. 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 She is undergone excision of melanoma from the right calf, with lymphadenectomy of the right groin in the 1969's. She subsequently required surgeries of the right thigh related to osteomyelitis, MRSA infection, and radiation injury to the right femoral artery. Ultimately, the patient required right above-knee amputation, performed in 2000. She also has a remote history of open reduction and internal fixation of a right ankle fracture. Allergies/Adverse Reactions: Allergies No Known Allergies Allergy (Verified 06/20/17 09:22) Home Medications: Ambulatory Orders Medication Instructions Recorded Famotidine 20 mg PO 06/20/17 Pravastatin [Pravachol] 20 mg PO DAILY 06/20/17 - Family History Maternal - - The patient's mother is 98 years of age and relatively healthy. The patient's father at age of 79 with a history of cardiomyopathy. Smoking Status: Former smoker Tobacco Use: Non-smoker Review of Systems Constitutional: Denies: Chills, Fever, Weight Change Eyes: Denies: Pain, Vision Change HEENT: Denies: Difficulty Hearing, Difficulty Swallowing, Sinus Congestion Cardiovascular: Denies: Chest Pain, Palpitations Respiratory: Denies: Cough, Shortness of Breath Gastrointestinal: Denies: Diarrhea, Nausea, Vomiting Genitourinary: Denies: Dysuria, Hematuria Endocrine: Denies: Heat/ Cold Intolerance, Polydipsia, Polyuria Hematologic/ Lymphatic: Denies: Easy Bruising, Easy Bleeding - Physical Exam Vital Signs Temp Pulse Resp BP 97.5 F L 92 18 143/94 H 01/16/18 09:10 01/16/18 09:10 01/16/18 09:10 01/16/18 09:10 General: Alert, Oriented x3, Cooperative, No apparent distress, Well developed, Well nourished HEENT: Atraumatic, PERRLA, EOMI, Normocephalic Oral: Moist Mucosa Neck: No JVD Lungs: Normal air movement Abdomen: Non-Distended Extremities: No clubbing, No cyanosis, No edema, No Calf Tenderness, - - The patient has a right above-knee amputation, which is well-healed. The ulceration in the right groin is somewhat improved in appearance. It is little changed in size. However, the base of the ulceration is generally more pink, with evidence of increasing granulation tissue. There is no sign of infection or cellulitis. Ulcer dimensions are documented elsewhere. Skin: No rashes Wound Measurements and Assessment WC - Nurse 1 - General Ulcer Measurement Start: 01/09/18 08:24 Freq: Status: Active Protocol: Activity Type Activity Date Activity User E-Sign Co-Sign Detail Recorded Client Recorded Date Recorded By Document 01/16/18 09:10 [id number] 01/16/18 09:13 TM 01/16/18 09:10 Wound Center Nurse 1 [Ulcer Assessment] #5 R Groin -Combined with other wound No -Current Size (cm) - Length 3.8 -Current Size (cm) - Width 1.0 -Current Size (cm) - Depth 0.5 -Total Square Cm 3.80 -Photo Taken No -Epithelialization Small 1-33% -Tunneling No -Undermining/Tunneling No -Circular Undermining No -Classification - Thickness Full Thickness without Exposed Support Structure -Exudate Amt Medium (34-66%) -Exudate Type Serosanguineous -Wound Margin Fibrotic Scar, Thickened Scar -Granulation Amt Medium (34-66%) -Granulation Quality Slaughter -Slough/Fibrin Yes -Necrosis Amt Medium (34-66%) -Necrotic Tissue Type Adherent Slough -Structure Exposed Fascia Fat Layer Exposed -Texture (Blanche-wound Skin Appearance) Friable Scarring -Moisture (Blanche-wound Skin Appearance No Abnormality ) -Color (Blanche-wound Skin Appearance) No Abnormality Assessed -Temperature (Blanche-wound Skin No Abnormality Appearance) (Pt Warm) -Tenderness on Palpation (Blanche-wound No Skin Appearance) -Ulcer Cleansing Rinsed/ Irrigated with Saline -Foul Odor after Cleansing No -Anesthetic Used 5% Lidocaine Gel [Edema Assessment] -Lower Limb Edema Present No WC - Nurse 2 - General Ulcer CM Notes Start: 01/09/18 08:24 Freq: Status: Active Protocol: Activity Type Activity Date Activity User E-Sign Co-Sign Detail Recorded Client Recorded Date Recorded By Document 01/16/18 09:58 [email or web address] [id number] 01/16/18 10:03 HARDIK 01/16/18 09:58 Wound Center Nurse 2 [Procedure/Treatment] #5 R Groin -Time 10:01 -Correct Patient Yes -Correct Side, Site, Position Yes -Correct Procedure Yes -Procedure Performed Yes -Type of Procedure Debridement -Clinical Debridement Subcutaneous -Post Debridement Size (cm) - Length 3.5 -Post Debridement Size (cm) - Width 1.1 -Post Debridement Size (cm) - Depth 0.5 -Total Square Cm 3.85 -Wound/Ulcer Outcome Not Healed -Ulcer Cleansing Rinsed/ Irrigated with Saline -Foul Odor after Cleansing No -Bioengineered Tissue Yes -Type of bioengineered Tissue EPIFIX -Expiration Date 10/08/22 -Product Lot Number [id number] -Percent Used 100 -Saline Lot Number [id number] -Bleeding Controlled with Pressure -Treatment Response Procedure Tolerated Well [See Physician Procedure note for Specifics] Pain Scale: 0-10 Numeric [Pain] -Is Patient Pain Free? Yes Neurological: Cranial nerves II-XII grossly intact, Neuro grossly intact Psych/Mental Status: Normal Affect, Appropriate, Alert and oriented to time, place, person, mood and affect Debridement Note Post-Debridement Measurements/Treatment WC - Nurse 2 - General Ulcer CM Notes Start: 01/09/18 08:24 Freq: Status: Active Protocol: Activity Type Activity Date Activity User E-Sign Co-Sign Detail Recorded Client Recorded Date Recorded By Document 01/09/18 09:32 JS [id number] 01/09/18 09:43 JS Document 01/16/18 09:58 JF [id number] 01/16/18 10:03 JF 01/09/18 01/16/18 09:32 09:58 Wound Center Nurse 2 #5 R Groin -Time 09:33 10:01 -Correct Patient Yes Yes -Correct Side, Site, Position Yes Yes -Correct Procedure Yes Yes -Procedure Performed Yes Yes -Type of Procedure Debridement Debridement -Clinical Debridement Subcutaneous Subcutaneous -Post Debridement Size (cm) - Length 4.1 3.5 -Post Debridement Size (cm) - Width 1.1 1.1 -Post Debridement Size (cm) - Depth 0.5 0.5 -Total Square Cm 4.51 3.85 -Wound/Ulcer Outcome Not Healed Not Healed -Ulcer Cleansing Rinsed/ Rinsed/ Irrigated with Irrigated with Saline Saline -Foul Odor after Cleansing No No -Bioengineered Tissue Yes Yes -Type of bioengineered Tissue EPIFIX EPIFIX -Expiration Date 09/07/22 10/08/22 -Product Lot Number [id number] -Percent Used 100 100 -Saline Lot Number [id number] -Topical Lidocaine (%) 4 -Lidocaine (ml) 5 -Bleeding Controlled with NA Pressure -Treatment Response Procedure Procedure Tolerated Well Tolerated Well Pain Scale: 0-10 Numeric Is Patient Pain Free? Yes Yes Laterality: Right - Groin Type of Debridement: Excisional debridement Anesthesia Used: 4% Lidocaine Solution Depth: Down to and including healthy tissue, in the subcutaneous layer Percentage of wound debrided: 100 Instrument Used: 5mm curette Severity: Fat Layer Exposed Amount of bleeding with debridement: Mild Bleeding Controlled with: Compression and gauze Patient tolerated procedure well Following a standard excisional debridement, which was well-tolerated by the patient, a 2 cm x 2 cm EpiFix allograft was applied. Upon removal from its sterile packaging, the allograft was cut to the appropriate size and shape. It was applied topically to the ulcer, over which wound veil and gauze were placed. The entire dressing was then anchored in place with Steri-Strips. Patient tolerated the procedure well. This represents the third such application of EpiFix. 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 In the 1970's, she was diagnosed with malignant melanoma of the right calf, with metastasis to lymph nodes in the right groin. She underwent excision of the melanoma with right groin lymphadenectomy. She was subsequently treated with a long series of radiation treatments to the right groin. During the days of her radiation treatment, it is suspected that the radiation techniques were somewhat early in their evolution, and quite likely that the patient received massive doses of radiation exposure, exceeding doses which would be considered appropriate today, with techniques which are primitive by today's standards. As result, the patient has developed soft tissue radiation injury, and has previously been treated at our wound center in the past with a series of approximately 90 hyperbaric oxygen therapy treatments, in 2011. She presented with recurrence of soft tissue radionecrosis in the right groin. Hyperbaric oxygen therapy treatments have been initiated, and the patient has undergone a series of 81 hyperbaric oxygen treatment sessions. She has shown recent benefit from the hyperbaric oxygen treatments, and continued hyperbaric oxygen therapy is felt to be warranted. We are to continue with additional hyperbaric oxygen therapy, felt to be clinically warranted, and in accordance with the patient's past history, in which wound healing was effected only after 90 such sessions. She has tolerated hyperbaric oxygen therapy well, without complaints or complications. She has completed her 90 sessions of hyperbaric oxygen treatments. She has completed her course of Bactrim double strength twice daily in response to recent wound culture. Plan: Dr. Carlos's recommendations have been noted. Aggressive surgical intervention has been considered, but there has been hesitance to do so thus far, given the irradiated field, and concerns regarding healing potential. Aggressive surgical excision and debridement of the area has been considered, but appears to be a less than optimal option. There would be concern as to the healing potential in the area involved, given that heavy doses of radiation have been rendered to this area in the past. Furthermore, a radical excision of the wound in this area had been previously considered several years ago, but the patient declined such intervention, and continues to prefer to avoid such a surgical approach. The patient will return in 1 week for reassessment. An EpiFix allograft has been applied, and we will reassess the wound upon her return in 1 week. Today's allograft represents the third such application of EpiFix. Influenza vaccine was not administered today. Patient is not a smoker. She stands 5 feet 7 inches tall. She weighs 198 pounds. Her BMI is 31, which places her in a class I category. Weight loss has been recommended. She is to collaborate with her primary care physician in this regard.
--- NOTE | 2018-01-16 10:10 | HP.PCM_ITS ---
(1) History of uterine cancer Status: Chronic Current Visit: No Code(s): Z85.42 - Personal history of malignant neoplasm of other parts of uterus (2) History of melanoma Status: Chronic Current Visit: Yes Code(s): Z85.820 - Personal history of malignant melanoma of skin (3) Hyperlipidemia Status: Chronic Current Visit: No Code(s): E78.5 - Hyperlipidemia, unspecified (4) GERD (gastroesophageal reflux disease) Status: Chronic Current Visit: No Code(s): K21.9 - Gastro-esophageal reflux disease without esophagitis (5) Ulcer of right groin Status: Chronic Current Visit: Yes Qualifiers: Non-pressure ulcer stage: with fat layer exposed Code(s): L98.499 - Non-pressure chronic ulcer of skin of other sites with unspecified severity (6) Obesity (BMI 30.0-34.9) Status: Chronic Current Visit: No Code(s): E66.9 - Obesity, unspecified (7) Amputee, above knee Status: Chronic Current Visit: Yes Qualifiers: Laterality: right Code(s): Z89.619 - Acquired absence of unspecified leg above knee (8) Soft tissue radionecrosis Status: Chronic Current Visit: Yes Code(s): L59.8 - Other specified disorders of the skin and subcutaneous tissue related to radiation; Y84.2 - Radiological procedure and radiotherapy as the cause of abnormal reaction of the patient, or of later complication, without mention of misadventure at the time of the procedure (9) soft tissue radiation injury Status: Chronic Current Visit: Yes History of Present Illness Date of Service: 01/16/18 Chief Complaint: 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 The patient underwent excision of her melanoma with lymphadenectomy in the right groin. She also underwent lengthy radiation treatments at the [facility] in [place], [place]. Melanoma recurred, and the patient was subsequently treated with monoclonal antibodies in 1984. 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 Treatment included local ulcer care and hyperbaric oxygen therapy. She underwent a total of nearly 90 treatments of hyperbaric oxygen therapy. It is known that she tolerated the therapies well, and derived significant benefit. She relates no history of claustrophobia, or other complications related to the hyperbaric oxygen therapy treatments. She has no history of barotrauma to lungs , ears, etc. Her medical history has been reviewed, without any evidence of contraindications to hyperbaric oxygen therapy. Hyperbaric oxygen therapy has been reinitiated, and the patient is currently undergoing hyperbaric oxygen therapy in our facility on a daily basis. She is currently using collagenase Santyl topically to the wound in the right groin. She has undergone a total of 81 sessions of hyperbaric oxygen therapy. We are to continue with hyperbaric oxygen therapy, which is felt to be clinically warranted. The patient's history suggests that the right groin wound in the past responded to hyperbaric oxygen therapy, but required 90 such sessions. It appears as though the patient' s current clinical course is mimicking that of the past, and additional hyperbaric oxygen therapy sessions, up to a total of at least 90, was felt to be warranted, and have been completed. 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 She is undergone excision of melanoma from the right calf, with lymphadenectomy of the right groin in the 1969's. She subsequently required surgeries of the right thigh related to osteomyelitis, MRSA infection, and radiation injury to the right femoral artery. Ultimately, the patient required right above-knee amputation, performed in 2000. She also has a remote history of open reduction and internal fixation of a right ankle fracture. Allergies/Adverse Reactions: Allergies No Known Allergies Allergy (Verified 06/20/17 09:22) Home Medications: Ambulatory Orders Medication Instructions Recorded Famotidine 20 mg PO 06/20/17 Pravastatin [Pravachol] 20 mg PO DAILY 06/20/17 - Family History Maternal - - The patient's mother is 98 years of age and relatively healthy. The patient 's father at age of 79 with a history of cardiomyopathy. Smoking Status: Former smoker Tobacco Use: Non-smoker Review of Systems Constitutional: Denies: Chills, Fever, Weight Change Eyes: Denies: Pain, Vision Change HEENT: Denies: Difficulty Hearing, Difficulty Swallowing, Sinus Congestion Cardiovascular: Denies: Chest Pain, Palpitations Respiratory: Denies: Cough, Shortness of Breath Gastrointestinal: Denies: Diarrhea, Nausea, Vomiting Genitourinary: Denies: Dysuria, Hematuria Endocrine: Denies: Heat/ Cold Intolerance, Polydipsia, Polyuria Hematologic/ Lymphatic: Denies: Easy Bruising, Easy Bleeding - Physical Exam Vital Signs Temp Pulse Resp BP 97.5 F L 92 18 143/94 H 01/16/18 09:10 01/16/18 09:10 01/16/18 09:10 01/16/18 09:10 General: Alert, Oriented x3, Cooperative, No apparent distress, Well developed, Well nourished HEENT: Atraumatic, PERRLA, EOMI, Normocephalic Oral: Moist Mucosa Neck: No JVD Lungs: Normal air movement Abdomen: Non-Distended Extremities: No clubbing, No cyanosis, No edema, No Calf Tenderness, - - The patient has a right above-knee amputation, which is well-healed. The ulceration in the right groin is somewhat improved in appearance. It is little changed in size. However, the base of the ulceration is generally more pink, with evidence of increasing granulation tissue. There is no sign of infection or cellulitis. Ulcer dimensions are documented elsewhere. Skin: No rashes Wound Measurements and Assessment WC - Nurse 1 - General Ulcer Measurement Start: 01/09/18 08:24 Freq: Status: Active Protocol: Activity Type Activity Date Activity User E-Sign Co-Sign Detail Recorded Client Recorded Date Recorded By Document 01/16/18 09:10 [id number] 01/16/18 09:13 TM 01/16/18 09:10 Wound Center Nurse 1 [Ulcer Assessment] #5 R Groin -Combined with other wound No -Current Size (cm) - Length 3.8 -Current Size (cm) - Width 1.0 -Current Size (cm) - Depth 0.5 -Total Square Cm 3.80 -Photo Taken No -Epithelialization Small 1-33% -Tunneling No -Undermining/Tunneling No -Circular Undermining No -Classification - Thickness Full Thickness without Exposed Support Structure -Exudate Amt Medium (34-66%) -Exudate Type Serosanguineous -Wound Margin Fibrotic Scar, Thickened Scar -Granulation Amt Medium (34-66%) -Granulation Quality [place] -Slough/Fibrin Yes -Necrosis Amt Medium (34-66%) -Necrotic Tissue Type Adherent Slough -Structure Exposed Fascia Fat Layer Exposed -Texture (Blanche-wound Skin Appearance) Friable Scarring -Moisture (Blanche-wound Skin Appearance No Abnormality ) -Color (Blanche-wound Skin Appearance) No Abnormality Assessed -Temperature (Blanche-wound Skin No Abnormality Appearance) (Pt Warm) -Tenderness on Palpation (Blanche-wound No Skin Appearance) -Ulcer Cleansing Rinsed/ Irrigated with Saline -Foul Odor after Cleansing No -Anesthetic Used 5% Lidocaine Gel [Edema Assessment] -Lower Limb Edema Present No WC - Nurse 2 - General Ulcer CM Notes Start: 01/09/18 08:24 Freq: Status: Active Protocol: Activity Type Activity Date Activity User E-Sign Co-Sign Detail Recorded Client Recorded Date Recorded By Document 01/16/18 09:58 HARDIK [id number] 01/16/18 10:03 HARDIK 01/16/18 09:58 Wound Center Nurse 2 [Procedure/Treatment] #5 R Groin -Time 10:01 -Correct Patient Yes -Correct Side, Site, Position Yes -Correct Procedure Yes -Procedure Performed Yes -Type of Procedure Debridement -Clinical Debridement Subcutaneous -Post Debridement Size (cm) - Length 3.5 -Post Debridement Size (cm) - Width 1.1 -Post Debridement Size (cm) - Depth 0.5 -Total Square Cm 3.85 -Wound/Ulcer Outcome Not Healed -Ulcer Cleansing Rinsed/ Irrigated with Saline -Foul Odor after Cleansing No -Bioengineered Tissue Yes -Type of bioengineered Tissue EPIFIX -Expiration Date 10/08/22 -Product Lot Number [id number] -Percent Used 100 -Saline Lot Number [id number] -Bleeding Controlled with Pressure -Treatment Response Procedure Tolerated Well [See Physician Procedure note for Specifics] Pain Scale: 0-10 Numeric [Pain] -Is Patient Pain Free? Yes Neurological: Cranial nerves II-XII grossly intact, Neuro grossly intact Psych/Mental Status: Normal Affect, Appropriate, Alert and oriented to time, place, person, mood and affect Debridement Note Post-Debridement Measurements/Treatment WC - Nurse 2 - General Ulcer CM Notes Start: 01/09/18 08:24 Freq: Status: Active Protocol: Activity Type Activity Date Activity User E-Sign Co-Sign Detail Recorded Client Recorded Date Recorded By Document 01/09/18 09:32 JS [id number] 01/09/18 09:43 JS Document 01/16/18 09:58 JF [id number] 01/16/18 10:03 JF 01/09/18 01/16/18 09:32 09:58 Wound Center Nurse 2 #5 R Groin -Time 09:33 10:01 -Correct Patient Yes Yes -Correct Side, Site, Position Yes Yes -Correct Procedure Yes Yes -Procedure Performed Yes Yes -Type of Procedure Debridement Debridement -Clinical Debridement Subcutaneous Subcutaneous -Post Debridement Size (cm) - Length 4.1 3.5 -Post Debridement Size (cm) - Width 1.1 1.1 -Post Debridement Size (cm) - Depth 0.5 0.5 -Total Square Cm 4.51 3.85 -Wound/Ulcer Outcome Not Healed Not Healed -Ulcer Cleansing Rinsed/ Rinsed/ Irrigated with Irrigated with Saline Saline -Foul Odor after Cleansing No No -Bioengineered Tissue Yes Yes -Type of bioengineered Tissue EPIFIX EPIFIX -Expiration Date 09/07/22 10/08/22 -Product Lot Number [id number] -Percent Used 100 100 -Saline Lot Number [id number] -Topical Lidocaine (%) 4 -Lidocaine (ml) 5 -Bleeding Controlled with NA Pressure -Treatment Response Procedure Procedure Tolerated Well Tolerated Well Pain Scale: 0-10 Numeric Is Patient Pain Free? Yes Yes Laterality: Right - Groin Type of Debridement: Excisional debridement Anesthesia Used: 4% Lidocaine Solution Depth: Down to and including healthy tissue, in the subcutaneous layer Percentage of wound debrided: 100 Instrument Used: 5mm curette Severity: Fat Layer Exposed Amount of bleeding with debridement: Mild Bleeding Controlled with: Compression and gauze Patient tolerated procedure well Following a standard excisional debridement, which was well-tolerated by the patient, a 2 cm x 2 cm EpiFix allograft was applied. Upon removal from its sterile packaging, the allograft was cut to the appropriate size and shape. It was applied topically to the ulcer, over which wound veil and gauze were placed. The entire dressing was then anchored in place with Steri-Strips. Patient tolerated the procedure well. This represents the third such application of EpiFix. 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 In the 1970's, she was diagnosed with malignant melanoma of the right calf, with metastasis to lymph nodes in the right groin. She underwent excision of the melanoma with right groin lymphadenectomy. She was subsequently treated with a long series of radiation treatments to the right groin. During the days of her radiation treatment, it is suspected that the radiation techniques were somewhat early in their evolution, and quite likely that the patient received massive doses of radiation exposure, exceeding doses which would be considered appropriate today , with techniques which are primitive by today's standards. As result, the patient has developed soft tissue radiation injury, and has previously been treated at our wound center in the past with a series of approximately 90 hyperbaric oxygen therapy treatments, in 2011. She presented with recurrence of soft tissue radionecrosis in the right groin. Hyperbaric oxygen therapy treatments have been initiated, and the patient has undergone a series of 81 hyperbaric oxygen treatment sessions. She has shown recent benefit from the hyperbaric oxygen treatments, and continued hyperbaric oxygen therapy is felt to be warranted. We are to continue with additional hyperbaric oxygen therapy, felt to be clinically warranted, and in accordance with the patient's past history, in which wound healing was effected only after 90 such sessions. She has tolerated hyperbaric oxygen therapy well, without complaints or complications. She has completed her 90 sessions of hyperbaric oxygen treatments. She has completed her course of Bactrim double strength twice daily in response to recent wound culture. Plan: Dr. Carlos's recommendations have been noted. Aggressive surgical intervention has been considered, but there has been hesitance to do so thus far , given the irradiated field, and concerns regarding healing potential. Aggressive surgical excision and debridement of the area has been considered, but appears to be a less than optimal option. There would be concern as to the healing potential in the area involved, given that heavy doses of radiation have been rendered to this area in the past. Furthermore, a radical excision of the wound in this area had been previously considered several years ago, but the patient declined such intervention, and continues to prefer to avoid such a surgical approach. The patient will return in 1 week for reassessment. An EpiFix allograft has been applied, and we will reassess the wound upon her return in 1 week. Today's allograft represents the third such application of EpiFix. Influenza vaccine was not administered today. Patient is not a smoker. She stands 5 feet 7 inches tall. She weighs 198 pounds. Her BMI is 31 , which places her in a class I category. Weight loss has been recommended. She is to collaborate with her primary care physician in this regard.
[2018-01-23 08:07] VITALS: BP 160/92; PULSE 94; RESP 16; BMI 68.3
--- NOTE | 2018-01-23 08:45 | PCM.WC.HP ---
(1) History of uterine cancer Status: Chronic Current Visit: No Code(s): Z85.42 - Personal history of malignant neoplasm of other parts of uterus (2) History of melanoma Status: Chronic Current Visit: Yes Code(s): Z85.820 - Personal history of malignant melanoma of skin (3) Hyperlipidemia Status: Chronic Current Visit: No Code(s): E78.5 - Hyperlipidemia, unspecified (4) GERD (gastroesophageal reflux disease) Status: Chronic Current Visit: No Code(s): K21.9 - Gastro-esophageal reflux disease without esophagitis (5) Ulcer of right groin Status: Chronic Current Visit: Yes Qualifiers: Non-pressure ulcer stage: with fat layer exposed Code(s): L98.499 - Non-pressure chronic ulcer of skin of other sites with unspecified severity (6) Obesity (BMI 30.0-34.9) Status: Chronic Current Visit: No Code(s): E66.9 - Obesity, unspecified (7) Amputee, above knee Status: Chronic Current Visit: Yes Qualifiers: Laterality: right Code(s): Z89.619 - Acquired absence of unspecified leg above knee (8) Soft tissue radionecrosis Status: Chronic Current Visit: Yes Code(s): L59.8 - Other specified disorders of the skin and subcutaneous tissue related to radiation; Y84.2 - Radiological procedure and radiotherapy as the cause of abnormal reaction of the patient, or of later complication, without mention of misadventure at the time of the procedure (9) soft tissue radiation injury Status: Chronic Current Visit: Yes History of Present Illness Date of Service: 01/23/18 Chief Complaint: 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 The patient underwent excision of her melanoma with lymphadenectomy in the right groin. She also underwent lengthy radiation treatments at the [facility] in [place], [place]. Melanoma recurred, and the patient was subsequently treated with monoclonal antibodies in 1984. 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 Treatment included local ulcer care and hyperbaric oxygen therapy. She underwent a total of nearly 90 treatments of hyperbaric oxygen therapy. It is known that she tolerated the therapies well, and derived significant benefit. She relates no history of claustrophobia, or other complications related to the hyperbaric oxygen therapy treatments. She has no history of barotrauma to lungs, ears, etc. Her medical history has been reviewed, without any evidence of contraindications to hyperbaric oxygen therapy. Hyperbaric oxygen therapy has been reinitiated, and the patient is currently undergoing hyperbaric oxygen therapy in our facility on a daily basis. She is currently using collagenase Santyl topically to the wound in the right groin. She has undergone a total of 81 sessions of hyperbaric oxygen therapy. We are to continue with hyperbaric oxygen therapy, which is felt to be clinically warranted. The patient's history suggests that the right groin wound in the past responded to hyperbaric oxygen therapy, but required 90 such sessions. It appears as though the patient's current clinical course is mimicking that of the past, and additional hyperbaric oxygen therapy sessions, up to a total of at least 90, was felt to be warranted, and have been completed. 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 She is undergone excision of melanoma from the right calf, with lymphadenectomy of the right groin in the 1969's. She subsequently required surgeries of the right thigh related to osteomyelitis, MRSA infection, and radiation injury to the right femoral artery. Ultimately, the patient required right above-knee amputation, performed in 2000. She also has a remote history of open reduction and internal fixation of a right ankle fracture. Allergies/Adverse Reactions: Allergies No Known Allergies Allergy (Verified 06/20/17 09:22) Home Medications: Ambulatory Orders Medication Instructions Recorded Famotidine 20 mg PO 06/20/17 Pravastatin [Pravachol] 20 mg PO DAILY 06/20/17 - Family History Maternal - - The patient's mother is 98 years of age and relatively healthy. The patient's father at age of 79 with a history of cardiomyopathy. Smoking Status: Former smoker Tobacco Use: Non-smoker Review of Systems Constitutional: Denies: Chills, Fever, Weight Change Eyes: Denies: Pain, Vision Change HEENT: Denies: Difficulty Hearing, Difficulty Swallowing, Sinus Congestion Cardiovascular: Denies: Chest Pain, Palpitations Respiratory: Denies: Cough, Shortness of Breath Gastrointestinal: Denies: Diarrhea, Nausea, Vomiting Genitourinary: Denies: Dysuria, Hematuria Endocrine: Denies: Heat/ Cold Intolerance, Polydipsia, Polyuria Hematologic/ Lymphatic: Denies: Easy Bruising, Easy Bleeding - Physical Exam Vital Signs Temp Pulse Resp BP 97.5 F L 94 16 160/92 H 01/16/18 09:10 01/23/18 08:07 01/23/18 08:07 01/23/18 08:07 General: Alert, Oriented x3, Cooperative, No apparent distress, Well developed, Well nourished HEENT: Atraumatic, PERRLA, EOMI, Normocephalic Oral: Moist Mucosa Neck: No JVD Lungs: Normal air movement Abdomen: Non-Distended Extremities: No clubbing, No cyanosis, No edema, No Calf Tenderness, - - Right above-knee amputation is noted. The amputation stump is well-healed. The ulceration in the right groin is relatively unchanged in appearance. Dimensions are documented elsewhere. The base of the ulceration is generally pink, with areas of active granulation tissue. There is a moderate amount of bioburden. There is now the appearance of daniel-ulcer erythema, suggesting the presence of early cellulitis. Wound Measurements and Assessment WC - Nurse 1 - General Ulcer Measurement Start: 01/09/18 08:24 Freq: Status: Active Protocol: Activity Type Activity Date Activity User E-Sign Co-Sign Detail Recorded Client Recorded Date Recorded By Document 01/23/18 08:07 SD [id number] 01/23/18 08:14 SD 01/23/18 08:07 Wound Center Nurse 1 [Ulcer Assessment] #5 R Groin -Current Size (cm) - Length 3.7 -Current Size (cm) - Width 1.3 -Current Size (cm) - Depth 0.2 -Total Square Cm 4.81 -Epithelialization Small 1-33% -Tunneling No -Undermining/Tunneling No -Circular Undermining No -Exudate Amt Small (1-33%) -Exudate Type Purulent -Wound Margin Thickened & Rolled Under -Granulation Amt Large (67-100%) -Granulation Quality [place] Red -Slough/Fibrin Yes -Necrosis Amt Small (1-33%) -Necrotic Tissue Type Adherent Slough -Structure Exposed N/A -Texture (Daniel-wound Skin Appearance) Assessed -Moisture (Daniel-wound Skin Appearance Assessed ) Maceration -Color (Daniel-wound Skin Appearance) Assessed -Temperature (Daniel-wound Skin No Abnormality Appearance) (Pt Warm) -Tenderness on Palpation (Daniel-wound No Skin Appearance) -Ulcer Cleansing Rinsed/ Irrigated with Saline -Foul Odor after Cleansing No -Anesthetic Used 4% Lidocaine Solution WC - Nurse 2 - General Ulcer CM Notes Start: 01/09/18 08:24 Freq: Status: Active Protocol: Activity Type Activity Date Activity User E-Sign Co-Sign Detail Recorded Client Recorded Date Recorded By Document 01/23/18 08:26 KEILA [id number] 01/23/18 08:27 KEILA 01/23/18 08:26 Wound Center Nurse 2 [Procedure/Treatment] -Time 08:26 -Correct Patient Yes -Correct Side, Site, Position Yes -Correct Procedure Yes -Procedure Performed Yes -Type of Procedure Debridement -Clinical Debridement Subcutaneous -Post Debridement Size (cm) - Length 3.9 -Post Debridement Size (cm) - Width 1.1 -Post Debridement Size (cm) - Depth 0.4 -Total Square Cm 4.29 -Wound/Ulcer Outcome Not Healed -Ulcer Cleansing Rinsed/ Irrigated with Saline -Foul Odor after Cleansing No -Bioengineered Tissue No -Topical Lidocaine (%) 4 -Lidocaine (ml) 5 -Bleeding Controlled with NA -Treatment Response Procedure Tolerated Well [See Physician Procedure note for Specifics] Pain Scale: 0-10 Numeric [Pain] -Is Patient Pain Free? Yes Neurological: Cranial nerves II-XII grossly intact, Neuro grossly intact Psych/Mental Status: Normal Affect, Appropriate, Alert and oriented to time, place, person, mood and affect Debridement Note Post-Debridement Measurements/Treatment WC - Nurse 2 - General Ulcer CM Notes Start: 01/09/18 08:24 Freq: Status: Active Protocol: Activity Type Activity Date Activity User E-Sign Co-Sign Detail Recorded Client Recorded Date Recorded By Document 01/09/18 09:32 JS [id number] 01/09/18 09:43 JS Document 01/16/18 09:58 JF [id number] 01/16/18 10:03 JF Document 01/23/18 08:26 JS [id number] 01/23/18 08:27 JS 01/09/18 01/16/18 01/23/18 09:32 09:58 08:26 Wound Center Nurse 2 #5 R Groin -Time 09:33 10:01 08:26 -Correct Patient Yes Yes Yes -Correct Side, Site, Position Yes Yes Yes -Correct Procedure Yes Yes Yes -Procedure Performed Yes Yes Yes -Type of Procedure Debridement Debridement Debridement -Clinical Debridement Subcutaneous Subcutaneous Subcutaneous -Post Debridement Size (cm) - Length 4.1 3.5 3.9 -Post Debridement Size (cm) - Width 1.1 1.1 1.1 -Post Debridement Size (cm) - Depth 0.5 0.5 0.4 -Total Square Cm 4.51 3.85 4.29 -Wound/Ulcer Outcome Not Healed Not Healed Not Healed -Ulcer Cleansing Rinsed/ Rinsed/ Rinsed/ Irrigated with Irrigated with Irrigated with Saline Saline Saline -Foul Odor after Cleansing No No No -Bioengineered Tissue Yes Yes No -Type of bioengineered Tissue EPIFIX EPIFIX -Expiration Date 09/07/22 10/08/22 -Product Lot Number [id number] -Percent Used 100 100 -Saline Lot Number [id number] -Topical Lidocaine (%) 4 4 -Lidocaine (ml) 5 5 -Bleeding Controlled with NA Pressure NA -Treatment Response Procedure Procedure Procedure Tolerated Well Tolerated Well Tolerated Well Pain Scale: 0-10 Numeric Is Patient Pain Free? Yes Yes Yes Laterality: Right - Groin Type of Debridement: Excisional debridement Anesthesia Used: 4% Lidocaine Solution Depth: Down to and including healthy tissue, in the subcutaneous layer Percentage of wound debrided: 100 Instrument Used: 5mm curette Severity: Fat Layer Exposed Amount of bleeding with debridement: Mild Bleeding Controlled with: Compression and gauze Patient tolerated procedure well Swab cultures were obtained of the ulceration in the right groin. Both aerobic and anaerobic swab cultures were obtained. There will be sent to the microbiology laboratory for culture and sensitivity results. 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 In the 1970's, she was diagnosed with malignant melanoma of the right calf, with metastasis to lymph nodes in the right groin. She underwent excision of the melanoma with right groin lymphadenectomy. She was subsequently treated with a long series of radiation treatments to the right groin. During the days of her radiation treatment, it is suspected that the radiation techniques were somewhat early in their evolution, and quite likely that the patient received massive doses of radiation exposure, exceeding doses which would be considered appropriate today, with techniques which are primitive by today's standards. As result, the patient has developed soft tissue radiation injury, and has previously been treated at our wound center in the past with a series of approximately 90 hyperbaric oxygen therapy treatments, in 2012. She presented with recurrence of soft tissue radionecrosis in the right groin. Hyperbaric oxygen therapy treatments have been initiated, and the patient has undergone a series of 81 hyperbaric oxygen treatment sessions. She has shown recent benefit from the hyperbaric oxygen treatments, and continued hyperbaric oxygen therapy is felt to be warranted. We are to continue with additional hyperbaric oxygen therapy, felt to be clinically warranted, and in accordance with the patient's past history, in which wound healing was effected only after 90 such sessions. She has tolerated hyperbaric oxygen therapy well, without complaints or complications. She has completed her 90 sessions of hyperbaric oxygen treatments. Based upon the appearance of daniel-ulcer erythema, which is suspected to be early cellulitis, the ulceration was cultured for aerobic and anaerobic organisms, the patient is to be placed on Keflex 500 mg p.o. twice daily for 10 days. Plan: Dr. Carlos's recommendations have been noted. Aggressive surgical intervention has been considered, but there has been hesitance to do so thus far, given the irradiated field, and concerns regarding healing potential. Aggressive surgical excision and debridement of the area has been considered, but appears to be a less than optimal option. There would be concern as to the healing potential in the area involved, given that heavy doses of radiation have been rendered to this area in the past. Furthermore, a radical excision of the wound in this area had been previously considered several years ago, but the patient declined such intervention, and continues to prefer to avoid such a surgical approach. We will await aerobic and anaerobic cultures of the patient's ulceration. She has been placed on Keflex 500 mg p.o. twice daily for total of 10 days. Once culture results are available, it may be necessary to adjust patient's antibiotic regimen. Because of suspected infection, an EpiFix allograft was not applied today. Instead, we are to use Mary which will be applied every other day. Patient will return in 1 week for reassessment. Influenza vaccine was not administered today. Patient is not a smoker. She stands 5 feet 7 inches tall. She weighs 198 pounds. Her BMI is 31, which places her in a class I category. Weight loss has been recommended. She is to collaborate with her primary care physician in this regard.
--- NOTE | 2018-01-23 09:02 | HP.PCM_ITS ---
(1) History of uterine cancer Status: Chronic Current Visit: No Code(s): Z85.42 - Personal history of malignant neoplasm of other parts of uterus (2) History of melanoma Status: Chronic Current Visit: Yes Code(s): Z85.820 - Personal history of malignant melanoma of skin (3) Hyperlipidemia Status: Chronic Current Visit: No Code(s): E78.5 - Hyperlipidemia, unspecified (4) GERD (gastroesophageal reflux disease) Status: Chronic Current Visit: No Code(s): K21.9 - Gastro-esophageal reflux disease without esophagitis (5) Ulcer of right groin Status: Chronic Current Visit: Yes Qualifiers: Non-pressure ulcer stage: with fat layer exposed Code(s): L98.499 - Non-pressure chronic ulcer of skin of other sites with unspecified severity (6) Obesity (BMI 30.0-34.9) Status: Chronic Current Visit: No Code(s): E66.9 - Obesity, unspecified (7) Amputee, above knee Status: Chronic Current Visit: Yes Qualifiers: Laterality: right Code(s): Z89.619 - Acquired absence of unspecified leg above knee (8) Soft tissue radionecrosis Status: Chronic Current Visit: Yes Code(s): L59.8 - Other specified disorders of the skin and subcutaneous tissue related to radiation; Y84.2 - Radiological procedure and radiotherapy as the cause of abnormal reaction of the patient, or of later complication, without mention of misadventure at the time of the procedure (9) soft tissue radiation injury Status: Chronic Current Visit: Yes History of Present Illness Date of Service: 01/23/18 Chief Complaint: 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 The patient underwent excision of her melanoma with lymphadenectomy in the right groin. She also underwent lengthy radiation treatments at the [facility] in [place], [place]. Melanoma recurred, and the patient was subsequently treated with monoclonal antibodies in 1984. 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 Treatment included local ulcer care and hyperbaric oxygen therapy. She underwent a total of nearly 90 treatments of hyperbaric oxygen therapy. It is known that she tolerated the therapies well, and derived significant benefit. She relates no history of claustrophobia, or other complications related to the hyperbaric oxygen therapy treatments. She has no history of barotrauma to lungs , ears, etc. Her medical history has been reviewed, without any evidence of contraindications to hyperbaric oxygen therapy. Hyperbaric oxygen therapy has been reinitiated, and the patient is currently undergoing hyperbaric oxygen therapy in our facility on a daily basis. She is currently using collagenase Santyl topically to the wound in the right groin. She has undergone a total of 81 sessions of hyperbaric oxygen therapy. We are to continue with hyperbaric oxygen therapy, which is felt to be clinically warranted. The patient's history suggests that the right groin wound in the past responded to hyperbaric oxygen therapy, but required 90 such sessions. It appears as though the patient' s current clinical course is mimicking that of the past, and additional hyperbaric oxygen therapy sessions, up to a total of at least 90, was felt to be warranted, and have been completed. 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 She is undergone excision of melanoma from the right calf, with lymphadenectomy of the right groin in the 1969's. She subsequently required surgeries of the right thigh related to osteomyelitis, MRSA infection, and radiation injury to the right femoral artery. Ultimately, the patient required right above-knee amputation, performed in 2000. She also has a remote history of open reduction and internal fixation of a right ankle fracture. Allergies/Adverse Reactions: Allergies No Known Allergies Allergy (Verified 06/20/17 09:22) Home Medications: Ambulatory Orders Medication Instructions Recorded Famotidine 20 mg PO 06/20/17 Pravastatin [Pravachol] 20 mg PO DAILY 06/20/17 - Family History Maternal - - The patient's mother is 98 years of age and relatively healthy. The patient 's father at age of 79 with a history of cardiomyopathy. Smoking Status: Former smoker Tobacco Use: Non-smoker Review of Systems Constitutional: Denies: Chills, Fever, Weight Change Eyes: Denies: Pain, Vision Change HEENT: Denies: Difficulty Hearing, Difficulty Swallowing, Sinus Congestion Cardiovascular: Denies: Chest Pain, Palpitations Respiratory: Denies: Cough, Shortness of Breath Gastrointestinal: Denies: Diarrhea, Nausea, Vomiting Genitourinary: Denies: Dysuria, Hematuria Endocrine: Denies: Heat/ Cold Intolerance, Polydipsia, Polyuria Hematologic/ Lymphatic: Denies: Easy Bruising, Easy Bleeding - Physical Exam Vital Signs Temp Pulse Resp BP 97.5 F L 94 16 160/92 H 01/16/18 09:10 01/23/18 08:07 01/23/18 08:07 01/23/18 08:07 General: Alert, Oriented x3, Cooperative, No apparent distress, Well developed, Well nourished HEENT: Atraumatic, PERRLA, EOMI, Normocephalic Oral: Moist Mucosa Neck: No JVD Lungs: Normal air movement Abdomen: Non-Distended Extremities: No clubbing, No cyanosis, No edema, No Calf Tenderness, - - Right above-knee amputation is noted. The amputation stump is well-healed. The ulceration in the right groin is relatively unchanged in appearance. Dimensions are documented elsewhere. The base of the ulceration is generally pink, with areas of active granulation tissue. There is a moderate amount of bioburden. There is now the appearance of daniel-ulcer erythema, suggesting the presence of early cellulitis. Wound Measurements and Assessment WC - Nurse 1 - General Ulcer Measurement Start: 01/09/18 08:24 Freq: Status: Active Protocol: Activity Type Activity Date Activity User E-Sign Co-Sign Detail Recorded Client Recorded Date Recorded By Document 01/23/18 08:07 KS [id number] 01/23/18 08:14 KS 01/23/18 08:07 Wound Center Nurse 1 [Ulcer Assessment] #5 R Groin -Current Size (cm) - Length 3.7 -Current Size (cm) - Width 1.3 -Current Size (cm) - Depth 0.2 -Total Square Cm 4.81 -Epithelialization Small 1-33% -Tunneling No -Undermining/Tunneling No -Circular Undermining No -Exudate Amt Small (1-33%) -Exudate Type Purulent -Wound Margin Thickened & Rolled Under -Granulation Amt Large (67-100%) -Granulation Quality [place] Red -Slough/Fibrin Yes -Necrosis Amt Small (1-33%) -Necrotic Tissue Type Adherent Slough -Structure Exposed N/A -Texture (Daniel-wound Skin Appearance) Assessed -Moisture (Daniel-wound Skin Appearance Assessed ) Maceration -Color (Daniel-wound Skin Appearance) Assessed -Temperature (Daniel-wound Skin No Abnormality Appearance) (Pt Warm) -Tenderness on Palpation (Daniel-wound No Skin Appearance) -Ulcer Cleansing Rinsed/ Irrigated with Saline -Foul Odor after Cleansing No -Anesthetic Used 4% Lidocaine Solution WC - Nurse 2 - General Ulcer CM Notes Start: 01/09/18 08:24 Freq: Status: Active Protocol: Activity Type Activity Date Activity User E-Sign Co-Sign Detail Recorded Client Recorded Date Recorded By Document 01/23/18 08:26 KEILA [id number] 01/23/18 08:27 KEILA 01/23/18 08:26 Wound Center Nurse 2 [Procedure/Treatment] -Time 08:26 -Correct Patient Yes -Correct Side, Site, Position Yes -Correct Procedure Yes -Procedure Performed Yes -Type of Procedure Debridement -Clinical Debridement Subcutaneous -Post Debridement Size (cm) - Length 3.9 -Post Debridement Size (cm) - Width 1.1 -Post Debridement Size (cm) - Depth 0.4 -Total Square Cm 4.29 -Wound/Ulcer Outcome Not Healed -Ulcer Cleansing Rinsed/ Irrigated with Saline -Foul Odor after Cleansing No -Bioengineered Tissue No -Topical Lidocaine (%) 4 -Lidocaine (ml) 5 -Bleeding Controlled with NA -Treatment Response Procedure Tolerated Well [See Physician Procedure note for Specifics] Pain Scale: 0-10 Numeric [Pain] -Is Patient Pain Free? Yes Neurological: Cranial nerves II-XII grossly intact, Neuro grossly intact Psych/Mental Status: Normal Affect, Appropriate, Alert and oriented to time, place, person, mood and affect Debridement Note Post-Debridement Measurements/Treatment WC - Nurse 2 - General Ulcer CM Notes Start: 01/09/18 08:24 Freq: Status: Active Protocol: Activity Type Activity Date Activity User E-Sign Co-Sign Detail Recorded Client Recorded Date Recorded By Document 01/09/18 09:32 JS [id number] 01/09/18 09:43 JS Document 01/16/18 09:58 JF [id number] 01/16/18 10:03 JF Document 01/23/18 08:26 JS [id number] 01/23/18 08:27 JS 01/09/18 01/16/18 01/23/18 09:32 09:58 08:26 Wound Center Nurse 2 #5 R Groin -Time 09:33 10:01 08:26 -Correct Patient Yes Yes Yes -Correct Side, Site, Position Yes Yes Yes -Correct Procedure Yes Yes Yes -Procedure Performed Yes Yes Yes -Type of Procedure Debridement Debridement Debridement -Clinical Debridement Subcutaneous Subcutaneous Subcutaneous -Post Debridement Size (cm) - Length 4.1 3.5 3.9 -Post Debridement Size (cm) - Width 1.1 1.1 1.1 -Post Debridement Size (cm) - Depth 0.5 0.5 0.4 -Total Square Cm 4.51 3.85 4.29 -Wound/Ulcer Outcome Not Healed Not Healed Not Healed -Ulcer Cleansing Rinsed/ Rinsed/ Rinsed/ Irrigated with Irrigated with Irrigated with Saline Saline Saline -Foul Odor after Cleansing No No No -Bioengineered Tissue Yes Yes No -Type of bioengineered Tissue EPIFIX EPIFIX -Expiration Date 09/07/22 10/08/22 -Product Lot Number [id number] -Percent Used 100 100 -Saline Lot Number [id number] -Topical Lidocaine (%) 4 4 -Lidocaine (ml) 5 5 -Bleeding Controlled with NA Pressure NA -Treatment Response Procedure Procedure Procedure Tolerated Well Tolerated Well Tolerated Well Pain Scale: 0-10 Numeric Is Patient Pain Free? Yes Yes Yes Laterality: Right - Groin Type of Debridement: Excisional debridement Anesthesia Used: 4% Lidocaine Solution Depth: Down to and including healthy tissue, in the subcutaneous layer Percentage of wound debrided: 100 Instrument Used: 5mm curette Severity: Fat Layer Exposed Amount of bleeding with debridement: Mild Bleeding Controlled with: Compression and gauze Patient tolerated procedure well Swab cultures were obtained of the ulceration in the right groin. Both aerobic and anaerobic swab cultures were obtained. There will be sent to the microbiology laboratory for culture and sensitivity results. 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 In the 1970's, she was diagnosed with malignant melanoma of the right calf, with metastasis to lymph nodes in the right groin. She underwent excision of the melanoma with right groin lymphadenectomy. She was subsequently treated with a long series of radiation treatments to the right groin. During the days of her radiation treatment, it is suspected that the radiation techniques were somewhat early in their evolution, and quite likely that the patient received massive doses of radiation exposure, exceeding doses which would be considered appropriate today , with techniques which are primitive by today's standards. As result, the patient has developed soft tissue radiation injury, and has previously been treated at our wound center in the past with a series of approximately 90 hyperbaric oxygen therapy treatments, in 2012. She presented with recurrence of soft tissue radionecrosis in the right groin. Hyperbaric oxygen therapy treatments have been initiated, and the patient has undergone a series of 81 hyperbaric oxygen treatment sessions. She has shown recent benefit from the hyperbaric oxygen treatments, and continued hyperbaric oxygen therapy is felt to be warranted. We are to continue with additional hyperbaric oxygen therapy, felt to be clinically warranted, and in accordance with the patient's past history, in which wound healing was effected only after 90 such sessions. She has tolerated hyperbaric oxygen therapy well, without complaints or complications. She has completed her 90 sessions of hyperbaric oxygen treatments. Based upon the appearance of daniel-ulcer erythema, which is suspected to be early cellulitis, the ulceration was cultured for aerobic and anaerobic organisms, the patient is to be placed on Keflex 500 mg p.o. twice daily for 10 days. Plan: Dr. Carlos's recommendations have been noted. Aggressive surgical intervention has been considered, but there has been hesitance to do so thus far , given the irradiated field, and concerns regarding healing potential. Aggressive surgical excision and debridement of the area has been considered, but appears to be a less than optimal option. There would be concern as to the healing potential in the area involved, given that heavy doses of radiation have been rendered to this area in the past. Furthermore, a radical excision of the wound in this area had been previously considered several years ago, but the patient declined such intervention, and continues to prefer to avoid such a surgical approach. We will await aerobic and anaerobic cultures of the patient' s ulceration. She has been placed on Keflex 500 mg p.o. twice daily for total of 10 days. Once culture results are available, it may be necessary to adjust patient's antibiotic regimen. Because of suspected infection, an EpiFix allograft was not applied today. Instead, we are to use Mary which will be applied every other day. Patient will return in 1 week for reassessment. Influenza vaccine was not administered today. Patient is not a smoker. She stands 5 feet 7 inches tall. She weighs 198 pounds. Her BMI is 31, which places her in a class I category. Weight loss has been recommended. She is to collaborate with her primary care physician in this regard.
[2018-01-31 09:46] VITALS: BP 158/99; PULSE 93; RESP 16; TEMP 36.4; BMI 68.3
--- NOTE | 2018-01-31 10:30 | PCM.WC.PN ---
(1) Soft tissue radionecrosis Status: Chronic Current Visit: Yes Code(s): L59.8 - Other specified disorders of the skin and subcutaneous tissue related to radiation; Y84.2 - Radiological procedure and radiotherapy as the cause of abnormal reaction of the patient, or of later complication, without mention of misadventure at the time of the procedure (2) Ulcer of right groin Status: Chronic Current Visit: Yes Qualifiers: Non-pressure ulcer stage: with fat layer exposed Code(s): L98.499 - Non-pressure chronic ulcer of skin of other sites with unspecified severity (3) soft tissue radiation injury Status: Chronic Current Visit: Yes Type of Wound Date of Service: 01/31/18 Chief Complaint: 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 The patient underwent excision of her melanoma with lymphadenectomy in the right groin. She also underwent lengthy radiation treatments at the [facility] in [place], [place]. Melanoma recurred, and the patient was subsequently treated with monoclonal antibodies in 1984. 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 Treatment included local ulcer care and hyperbaric oxygen therapy. She underwent a total of nearly 90 treatments of hyperbaric oxygen therapy. It is known that she tolerated the therapies well, and derived significant benefit. She relates no history of claustrophobia, or other complications related to the hyperbaric oxygen therapy treatments. She has no history of barotrauma to lungs, ears, etc. Her medical history has been reviewed, without any evidence of contraindications to hyperbaric oxygen therapy. Hyperbaric oxygen therapy has been reinitiated, and the patient is currently undergoing hyperbaric oxygen therapy in our facility on a daily basis. She is currently using collagenase Santyl topically to the wound in the right groin. She has undergone a total of 81 sessions of hyperbaric oxygen therapy. We are to continue with hyperbaric oxygen therapy, which is felt to be clinically warranted. The patient's history suggests that the right groin wound in the past responded to hyperbaric oxygen therapy, but required 90 such sessions. It appears as though the patient's current clinical course is mimicking that of the past, and additional hyperbaric oxygen therapy sessions, up to a total of at least 90, was felt to be warranted, and have been completed. Progress of Wound: Courtesy visit for Dr De Jesus. Stable ulcer. Epifix now on hold due to cellulitis noted at last visit. Cellulitis is said to have improved on Keflex. - Physical Exam Vital Signs Temp Pulse Resp BP 97.5 F L 93 16 158/99 H 01/31/18 09:46 01/31/18 09:46 01/31/18 09:46 01/31/18 09:46 General: Alert, Oriented x3, Cooperative, No apparent distress HEENT: Atraumatic, Normocephalic Oral: Moist Mucosa Neck: Supple Lungs: Normal air movement Extremities: No cyanosis Skin: Ulcer/ Wound Wound Measurements and Assessment WC - Nurse 1 - General Ulcer Measurement Start: 01/09/18 08:24 Freq: Status: Active Protocol: Activity Type Activity Date Activity User E-Sign Co-Sign Detail Recorded Client Recorded Date Recorded By Document 01/31/18 09:46 ME [id number] 01/31/18 09:55 ME 01/31/18 09:46 Wound Center Nurse 1 [Ulcer Assessment] #5 R Groin -Combined with other wound No -Current Size (cm) - Length 3.5 -Current Size (cm) - Width 1.5 -Current Size (cm) - Depth 0.1 -Total Square Cm 5.25 -Photo Taken No -Epithelialization Small 1-33% -Tunneling No -Undermining/Tunneling No -Exudate Amt Small (1-33%) -Exudate Type Purulent -Wound Margin Thickened & Rolled Under -Granulation Amt Small (1-33%) -Granulation Quality Pale -Slough/Fibrin Yes -Necrosis Amt Medium (34-66%) -Necrotic Tissue Type Adherent Slough -Texture (Daniel-wound Skin Appearance) Assessed -Moisture (Daniel-wound Skin Appearance Assessed ) -Color (Daniel-wound Skin Appearance) Assessed -Temperature (Daniel-wound Skin No Abnormality Appearance) (Pt Warm) -Tenderness on Palpation (Daniel-wound No Skin Appearance) -Ulcer Cleansing Rinsed/ Irrigated with Saline -Foul Odor after Cleansing No -Anesthetic Used 4% Lidocaine Solution [Edema Assessment] -Lower Limb Edema Present NA WC - Nurse 2 - General Ulcer CM Notes Start: 01/09/18 08:24 Freq: Status: Active Protocol: Activity Type Activity Date Activity User E-Sign Co-Sign Detail Recorded Client Recorded Date Recorded By Document 01/31/18 10:00 [id number] 01/31/18 10:01 01/31/18 10:00 Wound Center Nurse 2 [Procedure/Treatment] #5 R Groin -Time 10:00 -Correct Patient Yes -Correct Side, Site, Position Yes -Correct Procedure Yes -Procedure Performed Yes -Type of Procedure Debridement -Clinical Debridement Subcutaneous -Post Debridement Size (cm) - Length 3.8 -Post Debridement Size (cm) - Width 0.8 -Post Debridement Size (cm) - Depth 0.4 -Total Square Cm 3.04 -Wound/Ulcer Outcome Not Healed -Ulcer Cleansing Not Cleansed -Foul Odor after Cleansing No -Bioengineered Tissue No -Bleeding Controlled with Pressure -Treatment Response Procedure Tolerated Well [See Physician Procedure note for Specifics] Pain Scale: 0-10 Numeric [Pain] -Is Patient Pain Free? Yes Musculoskeletal: No Muscle Wasting Neurological: Cranial nerves II-XII grossly intact Psych/Mental Status: Normal Affect Debridement Note Post-Debridement Measurements/Treatment - Nurse 2 - General Ulcer CM Notes Start: 01/09/18 08:24 Freq: Status: Active Protocol: Activity Type Activity Date Activity User E-Sign Co-Sign Detail Recorded Client Recorded Date Recorded By Document 01/09/18 09:32 [id number] 01/09/18 09:43 Document 01/16/18 09:58 [id number] 01/16/18 10:03 Document 01/23/18 08:26 JS [id number] 01/23/18 08:27 Document 01/31/18 10:00 [id number] 01/31/18 10:01 CS 01/09/18 01/16/18 01/23/18 09:32 09:58 08:26 Wound Center Nurse 2 #5 R Groin -Time 09:33 10:01 08:26 -Correct Patient Yes Yes Yes -Correct Side, Site, Position Yes Yes Yes -Correct Procedure Yes Yes Yes -Procedure Performed Yes Yes Yes -Type of Procedure Debridement Debridement Debridement -Clinical Debridement Subcutaneous Subcutaneous Subcutaneous -Post Debridement Size (cm) - Length 4.1 3.5 3.9 -Post Debridement Size (cm) - Width 1.1 1.1 1.1 -Post Debridement Size (cm) - Depth 0.5 0.5 0.4 -Total Square Cm 4.51 3.85 4.29 -Wound/Ulcer Outcome Not Healed Not Healed Not Healed -Ulcer Cleansing Rinsed/ Rinsed/ Rinsed/ Irrigated with Irrigated with Irrigated with Saline Saline Saline -Foul Odor after Cleansing No No No -Bioengineered Tissue Yes Yes No -Type of bioengineered Tissue EPIFIX EPIFIX -Expiration Date 09/07/22 10/08/22 -Product Lot Number [id number] -Percent Used 100 100 -Saline Lot Number [id number] -Topical Lidocaine (%) 4 4 -Lidocaine (ml) 5 5 -Bleeding Controlled with NA Pressure NA -Treatment Response Procedure Procedure Procedure Tolerated Well Tolerated Well Tolerated Well Pain Scale: 0-10 Numeric Is Patient Pain Free? Yes Yes Yes 01/31/18 10:00 Wound Center Nurse 2 #5 R Groin -Time 10:00 -Correct Patient Yes -Correct Side, Site, Position Yes -Correct Procedure Yes -Procedure Performed Yes -Type of Procedure Debridement -Clinical Debridement Subcutaneous -Post Debridement Size (cm) - Length 3.8 -Post Debridement Size (cm) - Width 0.8 -Post Debridement Size (cm) - Depth 0.4 -Total Square Cm 3.04 -Wound/Ulcer Outcome Not Healed -Ulcer Cleansing Not Cleansed -Foul Odor after Cleansing No -Bioengineered Tissue No -Type of bioengineered Tissue -Expiration Date -Product Lot Number -Percent Used -Saline Lot Number -Topical Lidocaine (%) -Lidocaine (ml) -Bleeding Controlled with Pressure -Treatment Response Procedure Tolerated Well Pain Scale: 0-10 Numeric Is Patient Pain Free? Yes Wound debrided: Right Groin Type of Debridement: Excisional debridement Anesthesia Used: 4% Lidocaine Solution Depth: Down to and including healthy tissue, in the subcutaneous layer Percentage of wound debrided: 100 Instrument Used: 5mm curette Tissue Removed: Slough and devitalized tissue Severity: Fat Layer Exposed Amount of bleeding with debridement: Mild Bleeding Controlled with: Pressure Patient tolerated procedure well Assessment/Plan Active Problems History of melanoma (Chronic) Ulcer of right groin (Chronic) Amputee, 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 In the 1970's, she was diagnosed with malignant melanoma of the right calf, with metastasis to lymph nodes in the right groin. She underwent excision of the melanoma with right groin lymphadenectomy. She was subsequently treated with a long series of radiation treatments to the right groin. During the days of her radiation treatment, it is suspected that the radiation techniques were somewhat early in their evolution, and quite likely that the patient received massive doses of radiation exposure, exceeding doses which would be considered appropriate today, with techniques which are primitive by today's standards. As result, the patient has developed soft tissue radiation injury, and has previously been treated at our wound center in the past with a series of approximately 90 hyperbaric oxygen therapy treatments, in 2011. She presented with recurrence of soft tissue radionecrosis in the right groin. Hyperbaric oxygen therapy treatments have been initiated, and the patient has undergone a series of 81 hyperbaric oxygen treatment sessions. She has shown recent benefit from the hyperbaric oxygen treatments, and continued hyperbaric oxygen therapy is felt to be warranted. We are to continue with additional hyperbaric oxygen therapy, felt to be clinically warranted, and in accordance with the patient's past history, in which wound healing was effected only after 90 such sessions. She has tolerated hyperbaric oxygen therapy well, without complaints or complications. She has completed her 90 sessions of hyperbaric oxygen treatments. Based upon the appearance of daniel-ulcer erythema, which is suspected to be early cellulitis, the ulceration was cultured for aerobic and anaerobic organisms, the patient is to be placed on Keflex 500 mg p.o. twice daily for 10 days. Plan: As stated earlier, cellulitis has improved on Keflex. Debridement done as documented above, procedure was well tolerated. Continue xu and change every other day for now. Possibly resume Epifix when done with Abx. Continue increased protein intake and supplements. Follow up in 1 week. Advised to call with any questions or concerns.
--- NOTE | 2018-01-31 10:40 | PN.PCM_ITS ---
(1) Soft tissue radionecrosis Status: Chronic Current Visit: Yes Code(s): L59.8 - Other specified disorders of the skin and subcutaneous tissue related to radiation; Y84.2 - Radiological procedure and radiotherapy as the cause of abnormal reaction of the patient, or of later complication, without mention of misadventure at the time of the procedure (2) Ulcer of right groin Status: Chronic Current Visit: Yes Qualifiers: Non-pressure ulcer stage: with fat layer exposed Code(s): L98.499 - Non-pressure chronic ulcer of skin of other sites with unspecified severity (3) soft tissue radiation injury Status: Chronic Current Visit: Yes Type of Wound Date of Service: 01/31/18 Chief Complaint: 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 The patient underwent excision of her melanoma with lymphadenectomy in the right groin. She also underwent lengthy radiation treatments at the [facility] in [place], [place]. Melanoma recurred, and the patient was subsequently treated with monoclonal antibodies in 1984. 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 Treatment included local ulcer care and hyperbaric oxygen therapy. She underwent a total of nearly 90 treatments of hyperbaric oxygen therapy. It is known that she tolerated the therapies well, and derived significant benefit. She relates no history of claustrophobia, or other complications related to the hyperbaric oxygen therapy treatments. She has no history of barotrauma to lungs , ears, etc. Her medical history has been reviewed, without any evidence of contraindications to hyperbaric oxygen therapy. Hyperbaric oxygen therapy has been reinitiated, and the patient is currently undergoing hyperbaric oxygen therapy in our facility on a daily basis. She is currently using collagenase Santyl topically to the wound in the right groin. She has undergone a total of 81 sessions of hyperbaric oxygen therapy. We are to continue with hyperbaric oxygen therapy, which is felt to be clinically warranted. The patient's history suggests that the right groin wound in the past responded to hyperbaric oxygen therapy, but required 90 such sessions. It appears as though the patient' s current clinical course is mimicking that of the past, and additional hyperbaric oxygen therapy sessions, up to a total of at least 90, was felt to be warranted, and have been completed. Progress of Wound: Courtesy visit for Dr De Jesus. Stable ulcer. Epifix now on hold due to cellulitis noted at last visit. Cellulitis is said to have improved on Keflex. - Physical Exam Vital Signs Temp Pulse Resp BP 97.5 F L 93 16 158/99 H 01/31/18 09:46 01/31/18 09:46 01/31/18 09:46 01/31/18 09:46 General: Alert, Oriented x3, Cooperative, No apparent distress HEENT: Atraumatic, Normocephalic Oral: Moist Mucosa Neck: Supple Lungs: Normal air movement Extremities: No cyanosis Skin: Ulcer/ Wound Wound Measurements and Assessment WC - Nurse 1 - General Ulcer Measurement Start: 01/09/18 08:24 Freq: Status: Active Protocol: Activity Type Activity Date Activity User E-Sign Co-Sign Detail Recorded Client Recorded Date Recorded By Document 01/31/18 09:46 MA [id number] 01/31/18 09:55 MA 01/31/18 09:46 Wound Center Nurse 1 [Ulcer Assessment] #5 R Groin -Combined with other wound No -Current Size (cm) - Length 3.5 -Current Size (cm) - Width 1.5 -Current Size (cm) - Depth 0.1 -Total Square Cm 5.25 -Photo Taken No -Epithelialization Small 1-33% -Tunneling No -Undermining/Tunneling No -Exudate Amt Small (1-33%) -Exudate Type Purulent -Wound Margin Thickened & Rolled Under -Granulation Amt Small (1-33%) -Granulation Quality Pale -Slough/Fibrin Yes -Necrosis Amt Medium (34-66%) -Necrotic Tissue Type Adherent Slough -Texture (Daniel-wound Skin Appearance) Assessed -Moisture (Daniel-wound Skin Appearance Assessed ) -Color (Daniel-wound Skin Appearance) Assessed -Temperature (Daniel-wound Skin No Abnormality Appearance) (Pt Warm) -Tenderness on Palpation (Daniel-wound No Skin Appearance) -Ulcer Cleansing Rinsed/ Irrigated with Saline -Foul Odor after Cleansing No -Anesthetic Used 4% Lidocaine Solution [Edema Assessment] -Lower Limb Edema Present NA WC - Nurse 2 - General Ulcer CM Notes Start: 01/09/18 08:24 Freq: Status: Active Protocol: Activity Type Activity Date Activity User E-Sign Co-Sign Detail Recorded Client Recorded Date Recorded By Document 01/31/18 10:00 [id number] 01/31/18 10:01 01/31/18 10:00 Wound Center Nurse 2 [Procedure/Treatment] #5 R Groin -Time 10:00 -Correct Patient Yes -Correct Side, Site, Position Yes -Correct Procedure Yes -Procedure Performed Yes -Type of Procedure Debridement -Clinical Debridement Subcutaneous -Post Debridement Size (cm) - Length 3.8 -Post Debridement Size (cm) - Width 0.8 -Post Debridement Size (cm) - Depth 0.4 -Total Square Cm 3.04 -Wound/Ulcer Outcome Not Healed -Ulcer Cleansing Not Cleansed -Foul Odor after Cleansing No -Bioengineered Tissue No -Bleeding Controlled with Pressure -Treatment Response Procedure Tolerated Well [See Physician Procedure note for Specifics] Pain Scale: 0-10 Numeric [Pain] -Is Patient Pain Free? Yes Musculoskeletal: No Muscle Wasting Neurological: Cranial nerves II-XII grossly intact Psych/Mental Status: Normal Affect Debridement Note Post-Debridement Measurements/Treatment - Nurse 2 - General Ulcer CM Notes Start: 01/09/18 08:24 Freq: Status: Active Protocol: Activity Type Activity Date Activity User E-Sign Co-Sign Detail Recorded Client Recorded Date Recorded By Document 01/09/18 09:32 [id number] 01/09/18 09:43 Document 01/16/18 09:58 [id number] 01/16/18 10:03 Document 01/23/18 08:26 JS [id number] 01/23/18 08:27 Document 01/31/18 10:00 [id number] 01/31/18 10:01 CS 01/09/18 01/16/18 01/23/18 09:32 09:58 08:26 Wound Center Nurse 2 #5 R Groin -Time 09:33 10:01 08:26 -Correct Patient Yes Yes Yes -Correct Side, Site, Position Yes Yes Yes -Correct Procedure Yes Yes Yes -Procedure Performed Yes Yes Yes -Type of Procedure Debridement Debridement Debridement -Clinical Debridement Subcutaneous Subcutaneous Subcutaneous -Post Debridement Size (cm) - Length 4.1 3.5 3.9 -Post Debridement Size (cm) - Width 1.1 1.1 1.1 -Post Debridement Size (cm) - Depth 0.5 0.5 0.4 -Total Square Cm 4.51 3.85 4.29 -Wound/Ulcer Outcome Not Healed Not Healed Not Healed -Ulcer Cleansing Rinsed/ Rinsed/ Rinsed/ Irrigated with Irrigated with Irrigated with Saline Saline Saline -Foul Odor after Cleansing No No No -Bioengineered Tissue Yes Yes No -Type of bioengineered Tissue EPIFIX EPIFIX -Expiration Date 09/07/22 10/08/22 -Product Lot Number [id number] -Percent Used 100 100 -Saline Lot Number [id number] -Topical Lidocaine (%) 4 4 -Lidocaine (ml) 5 5 -Bleeding Controlled with NA Pressure NA -Treatment Response Procedure Procedure Procedure Tolerated Well Tolerated Well Tolerated Well Pain Scale: 0-10 Numeric Is Patient Pain Free? Yes Yes Yes 01/31/18 10:00 Wound Center Nurse 2 #5 R Groin -Time 10:00 -Correct Patient Yes -Correct Side, Site, Position Yes -Correct Procedure Yes -Procedure Performed Yes -Type of Procedure Debridement -Clinical Debridement Subcutaneous -Post Debridement Size (cm) - Length 3.8 -Post Debridement Size (cm) - Width 0.8 -Post Debridement Size (cm) - Depth 0.4 -Total Square Cm 3.04 -Wound/Ulcer Outcome Not Healed -Ulcer Cleansing Not Cleansed -Foul Odor after Cleansing No -Bioengineered Tissue No -Type of bioengineered Tissue -Expiration Date -Product Lot Number -Percent Used -Saline Lot Number -Topical Lidocaine (%) -Lidocaine (ml) -Bleeding Controlled with Pressure -Treatment Response Procedure Tolerated Well Pain Scale: 0-10 Numeric Is Patient Pain Free? Yes Wound debrided: Right Groin Type of Debridement: Excisional debridement Anesthesia Used: 4% Lidocaine Solution Depth: Down to and including healthy tissue, in the subcutaneous layer Percentage of wound debrided: 100 Instrument Used: 5mm curette Tissue Removed: Slough and devitalized tissue Severity: Fat Layer Exposed Amount of bleeding with debridement: Mild Bleeding Controlled with: Pressure Patient tolerated procedure well Assessment/Plan Active Problems History of melanoma (Chronic) Ulcer of right groin (Chronic) Amputee, 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 In the 1970's, she was diagnosed with malignant melanoma of the right calf, with metastasis to lymph nodes in the right groin. She underwent excision of the melanoma with right groin lymphadenectomy. She was subsequently treated with a long series of radiation treatments to the right groin. During the days of her radiation treatment, it is suspected that the radiation techniques were somewhat early in their evolution, and quite likely that the patient received massive doses of radiation exposure, exceeding doses which would be considered appropriate today , with techniques which are primitive by today's standards. As result, the patient has developed soft tissue radiation injury, and has previously been treated at our wound center in the past with a series of approximately 90 hyperbaric oxygen therapy treatments, in 2011. She presented with recurrence of soft tissue radionecrosis in the right groin. Hyperbaric oxygen therapy treatments have been initiated, and the patient has undergone a series of 81 hyperbaric oxygen treatment sessions. She has shown recent benefit from the hyperbaric oxygen treatments, and continued hyperbaric oxygen therapy is felt to be warranted. We are to continue with additional hyperbaric oxygen therapy, felt to be clinically warranted, and in accordance with the patient's past history, in which wound healing was effected only after 90 such sessions. She has tolerated hyperbaric oxygen therapy well, without complaints or complications. She has completed her 90 sessions of hyperbaric oxygen treatments. Based upon the appearance of daniel-ulcer erythema, which is suspected to be early cellulitis, the ulceration was cultured for aerobic and anaerobic organisms, the patient is to be placed on Keflex 500 mg p.o. twice daily for 10 days. Plan: As stated earlier, cellulitis has improved on Keflex. Debridement done as documented above, procedure was well tolerated. Continue xu and change every other day for now. Possibly resume Epifix when done with Abx. Continue increased protein intake and supplements. Follow up in 1 week. Advised to call with any questions or concerns.
[2018-02-06 08:17] VITALS: BP 142/87; PULSE 89; RESP 16; TEMP 36.2; BMI 68.3
--- NOTE | 2018-02-06 08:43 | PCM.WC.HP ---
(1) History of uterine cancer Status: Chronic Current Visit: No Code(s): Z85.42 - Personal history of malignant neoplasm of other parts of uterus (2) History of melanoma Status: Chronic Current Visit: Yes Code(s): Z85.820 - Personal history of malignant melanoma of skin (3) Hyperlipidemia Status: Chronic Current Visit: No Code(s): E78.5 - Hyperlipidemia, unspecified (4) GERD (gastroesophageal reflux disease) Status: Chronic Current Visit: No Code(s): K21.9 - Gastro-esophageal reflux disease without esophagitis (5) Ulcer of right groin Status: Chronic Current Visit: Yes Qualifiers: Non-pressure ulcer stage: with fat layer exposed Code(s): L98.499 - Non-pressure chronic ulcer of skin of other sites with unspecified severity (6) Obesity (BMI 30.0-34.9) Status: Chronic Current Visit: No Code(s): E66.9 - Obesity, unspecified (7) Amputee, above knee Status: Chronic Current Visit: Yes Qualifiers: Laterality: right Code(s): Z89.619 - Acquired absence of unspecified leg above knee (8) Soft tissue radionecrosis Status: Chronic Current Visit: Yes Code(s): L59.8 - Other specified disorders of the skin and subcutaneous tissue related to radiation; Y84.2 - Radiological procedure and radiotherapy as the cause of abnormal reaction of the patient, or of later complication, without mention of misadventure at the time of the procedure (9) soft tissue radiation injury Status: Chronic Current Visit: Yes History of Present Illness Date of Service: 02/06/18 Chief Complaint: 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 The patient underwent excision of her melanoma with lymphadenectomy in the right groin. She also underwent lengthy radiation treatments at the [facility] in [place], [place]. Melanoma recurred, and the patient was subsequently treated with monoclonal antibodies in 1984. 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 Treatment included local ulcer care and hyperbaric oxygen therapy. She underwent a total of nearly 90 treatments of hyperbaric oxygen therapy. It is known that she tolerated the therapies well, and derived significant benefit. She relates no history of claustrophobia, or other complications related to the hyperbaric oxygen therapy treatments. She has no history of barotrauma to lungs, ears, etc. Her medical history has been reviewed, without any evidence of contraindications to hyperbaric oxygen therapy. Hyperbaric oxygen therapy has been administered for nearly 90 treatment sessions. We are currently using EpiFix allograft, and she has undergone 3 applications thus far. The patient's history suggests that the right groin wound in the past responded to hyperbaric oxygen therapy, but required 90 such sessions. It appears as though the patient's current clinical course is mimicking that of the past. 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 She is undergone excision of melanoma from the right calf, with lymphadenectomy of the right groin in the 1969's. She subsequently required surgeries of the right thigh related to osteomyelitis, MRSA infection, and radiation injury to the right femoral artery. Ultimately, the patient required right above-knee amputation, performed in 2000. She also has a remote history of open reduction and internal fixation of a right ankle fracture. Allergies/Adverse Reactions: Allergies No Known Allergies Allergy (Verified 06/20/17 09:22) Home Medications: Ambulatory Orders Medication Instructions Recorded Famotidine 20 mg PO 06/20/17 Pravastatin [Pravachol] 20 mg PO DAILY 06/20/17 - Family History Maternal - - The patient's mother is 98 years of age and relatively healthy. The patient's father at age of 79 with a history of cardiomyopathy. Smoking Status: Former smoker Tobacco Use: Non-smoker Review of Systems Constitutional: Denies: Chills, Fever, Weight Change Eyes: Denies: Pain, Vision Change HEENT: Denies: Difficulty Hearing, Difficulty Swallowing, Sinus Congestion Cardiovascular: Denies: Chest Pain, Palpitations Respiratory: Denies: Cough, Shortness of Breath Gastrointestinal: Denies: Diarrhea, Nausea, Vomiting Genitourinary: Denies: Dysuria, Hematuria Endocrine: Denies: Heat/ Cold Intolerance, Polydipsia, Polyuria Hematologic/ Lymphatic: Denies: Easy Bruising, Easy Bleeding - Physical Exam Vital Signs Temp Pulse Resp BP 97.1 F L 89 16 142/87 H 02/06/18 08:17 02/06/18 08:17 02/06/18 08:17 02/06/18 08:17 General: Alert, Oriented x3, Cooperative, No apparent distress, Well developed, Well nourished HEENT: Atraumatic, PERRLA, EOMI, Normocephalic Oral: Moist Mucosa Neck: No JVD Lungs: Normal air movement Abdomen: Non-Distended Extremities: No clubbing, No cyanosis, No edema, No Calf Tenderness, - - A right above-knee amputation is noted, the stump of which is well-healed. The patient's right groin ulceration demonstrates improvement. At this juncture, there is no sign of infection or cellulitis. The base of the ulceration is generally pink and healthy in appearance, with a mild amount of bioburden. There is significant evidence of epithelialization near the superior pole of the ulceration in the right groin. Dimensions are documented elsewhere. Skin: No rashes Wound Measurements and Assessment WC - Nurse 1 - General Ulcer Measurement Start: 01/09/18 08:24 Freq: Status: Active Protocol: Activity Type Activity Date Activity User E-Sign Co-Sign Detail Recorded Client Recorded Date Recorded By Document 02/06/18 08:17 [id number] 02/06/18 08:18 02/06/18 08:17 Wound Center Nurse 1 [Ulcer Assessment] #5 R Groin -Combined with other wound No -Current Size (cm) - Length 3.3 -Current Size (cm) - Width 0.9 -Current Size (cm) - Depth 0.5 -Total Square Cm 2.97 -Photo Taken No -Exudate Amt Medium (34-66%) -Exudate Type Serosanguineous -Wound Margin Distinct, Outline Attached -Granulation Amt Medium (34-66%) -Granulation Quality Pale [place] -Slough/Fibrin Yes -Necrosis Amt Medium (34-66%) -Necrotic Tissue Type Adherent Slough -Structure Exposed None/Limited to Skin Breakdown -Texture (Daniel-wound Skin Appearance) No Abnormality Assessed -Moisture (Daniel-wound Skin Appearance No Abnormality ) Assessed -Color (Daniel-wound Skin Appearance) No Abnormality Assessed -Temperature (Daniel-wound Skin No Abnormality Appearance) (Pt Warm) -Tenderness on Palpation (Daniel-wound No Skin Appearance) -Ulcer Cleansing Rinsed/ Irrigated with Saline -Foul Odor after Cleansing No -Anesthetic Used 4% Lidocaine Solution [Edema Assessment] -Lower Limb Edema Present NA WC - Nurse 2 - General Ulcer CM Notes Start: 01/09/18 08:24 Freq: Status: Active Protocol: Activity Type Activity Date Activity User E-Sign Co-Sign Detail Recorded Client Recorded Date Recorded By Document 02/06/18 08:24 [email or web address] [id number] 02/06/18 08:35 KEILA 02/06/18 08:24 Wound Center Nurse 2 [Procedure/Treatment] #5 R Groin -Time 08:24 -Correct Patient Yes -Correct Side, Site, Position Yes -Correct Procedure Yes -Procedure Performed Yes -Type of Procedure Debridement -Clinical Debridement Subcutaneous -Post Debridement Size (cm) - Length 3.4 -Post Debridement Size (cm) - Width 1.0 -Post Debridement Size (cm) - Depth 0.6 -Total Square Cm 3.40 -Wound/Ulcer Outcome Not Healed -Ulcer Cleansing Rinsed/ Irrigated with Saline -Foul Odor after Cleansing No -Bioengineered Tissue Yes -Type of bioengineered Tissue EPIFIX -Expiration Date 11/07/22 -Product Lot Number [id number] -Percent Used 100 -Saline Lot Number NA -Topical Lidocaine (%) 4 -Lidocaine (ml) 5 -Bleeding Controlled with NA -Treatment Response Procedure Tolerated Well [See Physician Procedure note for Specifics] Pain Scale: 0-10 Numeric [Pain] -Is Patient Pain Free? Yes Musculoskeletal: No Muscle Wasting Neurological: Cranial nerves II-XII grossly intact, Neuro grossly intact Psych/Mental Status: Normal Affect, Appropriate, Alert and oriented to time, place, person, mood and affect Debridement Note Post-Debridement Measurements/Treatment WC - Nurse 2 - General Ulcer CM Notes Start: 01/09/18 08:24 Freq: Status: Active Protocol: Activity Type Activity Date Activity User E-Sign Co-Sign Detail Recorded Client Recorded Date Recorded By Document 01/09/18 09:32 JS [id number] 01/09/18 09:43 JS Document 01/16/18 09:58 JF [id number] 01/16/18 10:03 JF Document 01/23/18 08:26 JS [id number] 01/23/18 08:27 JS Document 01/31/18 10:00 CS [id number] 01/31/18 10:01 CS Document 02/06/18 08:24 JS [id number] 02/06/18 08:35 JS 01/09/18 01/16/18 01/23/18 09:32 09:58 08:26 Wound Center Nurse 2 #5 R Groin -Time 09:33 10:01 08:26 -Correct Patient Yes Yes Yes -Correct Side, Site, Position Yes Yes Yes -Correct Procedure Yes Yes Yes -Procedure Performed Yes Yes Yes -Type of Procedure Debridement Debridement Debridement -Clinical Debridement Subcutaneous Subcutaneous Subcutaneous -Post Debridement Size (cm) - Length 4.1 3.5 3.9 -Post Debridement Size (cm) - Width 1.1 1.1 1.1 -Post Debridement Size (cm) - Depth 0.5 0.5 0.4 -Total Square Cm 4.51 3.85 4.29 -Wound/Ulcer Outcome Not Healed Not Healed Not Healed -Ulcer Cleansing Rinsed/ Rinsed/ Rinsed/ Irrigated with Irrigated with Irrigated with Saline Saline Saline -Foul Odor after Cleansing No No No -Bioengineered Tissue Yes Yes No -Type of bioengineered Tissue EPIFIX EPIFIX -Expiration Date 09/07/22 10/08/22 -Product Lot Number [id number] -Percent Used 100 100 -Saline Lot Number [id number] -Topical Lidocaine (%) 4 4 -Lidocaine (ml) 5 5 -Bleeding Controlled with NA Pressure NA -Treatment Response Procedure Procedure Procedure Tolerated Well Tolerated Well Tolerated Well Pain Scale: 0-10 Numeric Is Patient Pain Free? Yes Yes Yes 01/31/18 02/06/18 10:00 08:24 Wound Center Nurse 2 #5 R Groin -Time 10:00 08:24 -Correct Patient Yes Yes -Correct Side, Site, Position Yes Yes -Correct Procedure Yes Yes -Procedure Performed Yes Yes -Type of Procedure Debridement Debridement -Clinical Debridement Subcutaneous Subcutaneous -Post Debridement Size (cm) - Length 3.8 3.4 -Post Debridement Size (cm) - Width 0.8 1.0 -Post Debridement Size (cm) - Depth 0.4 0.6 -Total Square Cm 3.04 3.40 -Wound/Ulcer Outcome Not Healed Not Healed -Ulcer Cleansing Not Cleansed Rinsed/ Irrigated with Saline -Foul Odor after Cleansing No No -Bioengineered Tissue No Yes -Type of bioengineered Tissue EPIFIX -Expiration Date 11/07/22 -Product Lot Number [id number] -Percent Used 100 -Saline Lot Number NA -Topical Lidocaine (%) 4 -Lidocaine (ml) 5 -Bleeding Controlled with Pressure NA -Treatment Response Procedure Procedure Tolerated Well Tolerated Well Pain Scale: 0-10 Numeric Is Patient Pain Free? Yes Yes Laterality: Right - Groin Type of Debridement: Excisional debridement Anesthesia Used: 4% Lidocaine Solution Depth: Down to and including healthy tissue, in the subcutaneous layer Percentage of wound debrided: 100 Instrument Used: 5mm curette Severity: Fat Layer Exposed Amount of bleeding with debridement: Mild Bleeding Controlled with: Compression and gauze Patient tolerated procedure well Following a standard excisional debridement, which was well-tolerated, a 2 cm x 2 cm EpiFix allograft was applied. This represents the fourth such allograft application. Upon removal from its sterile packaging, the allograft was cut and fashioned to the appropriate size and shape, and was applied topically to the base of the ulceration. It was then covered with wound veil and gauze, and anchored in place with Steri-Strips. The entire procedure was well-tolerated. 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 In the 1970's, she was diagnosed with malignant melanoma of the right calf, with metastasis to lymph nodes in the right groin. She underwent excision of the melanoma with right groin lymphadenectomy. She was subsequently treated with a long series of radiation treatments to the right groin. During the days of her radiation treatment, it is suspected that the radiation techniques were somewhat early in their evolution, and quite likely that the patient received massive doses of radiation exposure, exceeding doses which would be considered appropriate today, with techniques which are primitive by today's standards. As result, the patient has developed soft tissue radiation injury, and has previously been treated at our wound center in the past with a series of approximately 90 hyperbaric oxygen therapy treatments, in 2011. She presented with recurrence of soft tissue radionecrosis in the right groin. Hyperbaric oxygen therapy treatments have been initiated, and the patient has undergone a series of nearly 90 hyperbaric oxygen treatment sessions. She has shown benefit from the hyperbaric oxygen treatments, which were felt to be clinically warranted, and in accordance with the patient's past history, in which wound healing was effected only after 90 such sessions. She has tolerated hyperbaric oxygen therapy well, without complaints or complications. She has completed her nearly 90 sessions of hyperbaric oxygen treatments. Based upon the appearance of the ulceration several weeks ago, infection was suspected, and the patient was placed on a course of oral Keflex. She has completed the course of Keflex, with good clinical response. At this time, there is no clinical evidence of infection or cellulitis in the daniel-ulcer area. Plan: As stated earlier, cellulitis has improved on Keflex. EpiFix #4 was applied today. The allograft will remain in place until the patient's next visit in 1 week. The patient is to continue with a nutritious diet. She will return in 1 week for reevaluation. Influenza vaccine was not administered today. The patient is not a smoker. She stands 5 feet 7 inches tall. She weighs 198 pounds. Her BMI is 31, which places her in a class I weight category. Weight loss has been recommended. She is to collaborate with her primary care physician in this regard.
--- NOTE | 2018-02-06 08:47 | HP.PCM_ITS ---
(1) History of uterine cancer Status: Chronic Current Visit: No Code(s): Z85.42 - Personal history of malignant neoplasm of other parts of uterus (2) History of melanoma Status: Chronic Current Visit: Yes Code(s): Z85.820 - Personal history of malignant melanoma of skin (3) Hyperlipidemia Status: Chronic Current Visit: No Code(s): E78.5 - Hyperlipidemia, unspecified (4) GERD (gastroesophageal reflux disease) Status: Chronic Current Visit: No Code(s): K21.9 - Gastro-esophageal reflux disease without esophagitis (5) Ulcer of right groin Status: Chronic Current Visit: Yes Qualifiers: Non-pressure ulcer stage: with fat layer exposed Code(s): L98.499 - Non-pressure chronic ulcer of skin of other sites with unspecified severity (6) Obesity (BMI 30.0-34.9) Status: Chronic Current Visit: No Code(s): E66.9 - Obesity, unspecified (7) Amputee, above knee Status: Chronic Current Visit: Yes Qualifiers: Laterality: right Code(s): Z89.619 - Acquired absence of unspecified leg above knee (8) Soft tissue radionecrosis Status: Chronic Current Visit: Yes Code(s): L59.8 - Other specified disorders of the skin and subcutaneous tissue related to radiation; Y84.2 - Radiological procedure and radiotherapy as the cause of abnormal reaction of the patient, or of later complication, without mention of misadventure at the time of the procedure (9) soft tissue radiation injury Status: Chronic Current Visit: Yes History of Present Illness Date of Service: 02/06/18 Chief Complaint: 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 The patient underwent excision of her melanoma with lymphadenectomy in the right groin. She also underwent lengthy radiation treatments at the [facility] in [place], [place]. Melanoma recurred, and the patient was subsequently treated with monoclonal antibodies in 1984. 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 Treatment included local ulcer care and hyperbaric oxygen therapy. She underwent a total of nearly 90 treatments of hyperbaric oxygen therapy. It is known that she tolerated the therapies well, and derived significant benefit. She relates no history of claustrophobia, or other complications related to the hyperbaric oxygen therapy treatments. She has no history of barotrauma to lungs , ears, etc. Her medical history has been reviewed, without any evidence of contraindications to hyperbaric oxygen therapy. Hyperbaric oxygen therapy has been administered for nearly 90 treatment sessions. We are currently using EpiFix allograft, and she has undergone 3 applications thus far. The patient's history suggests that the right groin wound in the past responded to hyperbaric oxygen therapy, but required 90 such sessions. It appears as though the patient' s current clinical course is mimicking that of the past. 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 She is undergone excision of melanoma from the right calf, with lymphadenectomy of the right groin in the 1969's. She subsequently required surgeries of the right thigh related to osteomyelitis, MRSA infection, and radiation injury to the right femoral artery. Ultimately, the patient required right above-knee amputation, performed in 2000. She also has a remote history of open reduction and internal fixation of a right ankle fracture. Allergies/Adverse Reactions: Allergies No Known Allergies Allergy (Verified 06/20/17 09:22) Home Medications: Ambulatory Orders Medication Instructions Recorded Famotidine 20 mg PO 06/20/17 Pravastatin [Pravachol] 20 mg PO DAILY 06/20/17 - Family History Maternal - - The patient's mother is 98 years of age and relatively healthy. The patient 's father at age of 79 with a history of cardiomyopathy. Smoking Status: Former smoker Tobacco Use: Non-smoker Review of Systems Constitutional: Denies: Chills, Fever, Weight Change Eyes: Denies: Pain, Vision Change HEENT: Denies: Difficulty Hearing, Difficulty Swallowing, Sinus Congestion Cardiovascular: Denies: Chest Pain, Palpitations Respiratory: Denies: Cough, Shortness of Breath Gastrointestinal: Denies: Diarrhea, Nausea, Vomiting Genitourinary: Denies: Dysuria, Hematuria Endocrine: Denies: Heat/ Cold Intolerance, Polydipsia, Polyuria Hematologic/ Lymphatic: Denies: Easy Bruising, Easy Bleeding - Physical Exam Vital Signs Temp Pulse Resp BP 97.1 F L 89 16 142/87 H 02/06/18 08:17 02/06/18 08:17 02/06/18 08:17 02/06/18 08:17 General: Alert, Oriented x3, Cooperative, No apparent distress, Well developed, Well nourished HEENT: Atraumatic, PERRLA, EOMI, Normocephalic Oral: Moist Mucosa Neck: No JVD Lungs: Normal air movement Abdomen: Non-Distended Extremities: No clubbing, No cyanosis, No edema, No Calf Tenderness, - - A right above-knee amputation is noted, the stump of which is well-healed. The patient's right groin ulceration demonstrates improvement. At this juncture, there is no sign of infection or cellulitis. The base of the ulceration is generally pink and healthy in appearance, with a mild amount of bioburden. There is significant evidence of epithelialization near the superior pole of the ulceration in the right groin. Dimensions are documented elsewhere. Skin: No rashes Wound Measurements and Assessment WC - Nurse 1 - General Ulcer Measurement Start: 01/09/18 08:24 Freq: Status: Active Protocol: Activity Type Activity Date Activity User E-Sign Co-Sign Detail Recorded Client Recorded Date Recorded By Document 02/06/18 08:17 [id number] 02/06/18 08:18 02/06/18 08:17 Wound Center Nurse 1 [Ulcer Assessment] #5 R Groin -Combined with other wound No -Current Size (cm) - Length 3.3 -Current Size (cm) - Width 0.9 -Current Size (cm) - Depth 0.5 -Total Square Cm 2.97 -Photo Taken No -Exudate Amt Medium (34-66%) -Exudate Type Serosanguineous -Wound Margin Distinct, Outline Attached -Granulation Amt Medium (34-66%) -Granulation Quality Pale [place] -Slough/Fibrin Yes -Necrosis Amt Medium (34-66%) -Necrotic Tissue Type Adherent Slough -Structure Exposed None/Limited to Skin Breakdown -Texture (Daniel-wound Skin Appearance) No Abnormality Assessed -Moisture (Daniel-wound Skin Appearance No Abnormality ) Assessed -Color (Daniel-wound Skin Appearance) No Abnormality Assessed -Temperature (Daniel-wound Skin No Abnormality Appearance) (Pt Warm) -Tenderness on Palpation (Daniel-wound No Skin Appearance) -Ulcer Cleansing Rinsed/ Irrigated with Saline -Foul Odor after Cleansing No -Anesthetic Used 4% Lidocaine Solution [Edema Assessment] -Lower Limb Edema Present NA WC - Nurse 2 - General Ulcer CM Notes Start: 01/09/18 08:24 Freq: Status: Active Protocol: Activity Type Activity Date Activity User E-Sign Co-Sign Detail Recorded Client Recorded Date Recorded By Document 02/06/18 08:24 [email or web address] [id number] 02/06/18 08:35 KEILA 02/06/18 08:24 Wound Center Nurse 2 [Procedure/Treatment] #5 R Groin -Time 08:24 -Correct Patient Yes -Correct Side, Site, Position Yes -Correct Procedure Yes -Procedure Performed Yes -Type of Procedure Debridement -Clinical Debridement Subcutaneous -Post Debridement Size (cm) - Length 3.4 -Post Debridement Size (cm) - Width 1.0 -Post Debridement Size (cm) - Depth 0.6 -Total Square Cm 3.40 -Wound/Ulcer Outcome Not Healed -Ulcer Cleansing Rinsed/ Irrigated with Saline -Foul Odor after Cleansing No -Bioengineered Tissue Yes -Type of bioengineered Tissue EPIFIX -Expiration Date 11/07/22 -Product Lot Number [id number] -Percent Used 100 -Saline Lot Number NA -Topical Lidocaine (%) 4 -Lidocaine (ml) 5 -Bleeding Controlled with NA -Treatment Response Procedure Tolerated Well [See Physician Procedure note for Specifics] Pain Scale: 0-10 Numeric [Pain] -Is Patient Pain Free? Yes Musculoskeletal: No Muscle Wasting Neurological: Cranial nerves II-XII grossly intact, Neuro grossly intact Psych/Mental Status: Normal Affect, Appropriate, Alert and oriented to time, place, person, mood and affect Debridement Note Post-Debridement Measurements/Treatment WC - Nurse 2 - General Ulcer CM Notes Start: 01/09/18 08:24 Freq: Status: Active Protocol: Activity Type Activity Date Activity User E-Sign Co-Sign Detail Recorded Client Recorded Date Recorded By Document 01/09/18 09:32 JS [id number] 01/09/18 09:43 JS Document 01/16/18 09:58 JF [id number] 01/16/18 10:03 JF Document 01/23/18 08:26 JS [id number] 01/23/18 08:27 JS Document 01/31/18 10:00 CS [id number] 01/31/18 10:01 CS Document 02/06/18 08:24 JS [id number] 02/06/18 08:35 JS 01/09/18 01/16/18 01/23/18 09:32 09:58 08:26 Wound Center Nurse 2 #5 R Groin -Time 09:33 10:01 08:26 -Correct Patient Yes Yes Yes -Correct Side, Site, Position Yes Yes Yes -Correct Procedure Yes Yes Yes -Procedure Performed Yes Yes Yes -Type of Procedure Debridement Debridement Debridement -Clinical Debridement Subcutaneous Subcutaneous Subcutaneous -Post Debridement Size (cm) - Length 4.1 3.5 3.9 -Post Debridement Size (cm) - Width 1.1 1.1 1.1 -Post Debridement Size (cm) - Depth 0.5 0.5 0.4 -Total Square Cm 4.51 3.85 4.29 -Wound/Ulcer Outcome Not Healed Not Healed Not Healed -Ulcer Cleansing Rinsed/ Rinsed/ Rinsed/ Irrigated with Irrigated with Irrigated with Saline Saline Saline -Foul Odor after Cleansing No No No -Bioengineered Tissue Yes Yes No -Type of bioengineered Tissue EPIFIX EPIFIX -Expiration Date 09/07/22 10/08/22 -Product Lot Number [id number] -Percent Used 100 100 -Saline Lot Number [id number] -Topical Lidocaine (%) 4 4 -Lidocaine (ml) 5 5 -Bleeding Controlled with NA Pressure NA -Treatment Response Procedure Procedure Procedure Tolerated Well Tolerated Well Tolerated Well Pain Scale: 0-10 Numeric Is Patient Pain Free? Yes Yes Yes 01/31/18 02/06/18 10:00 08:24 Wound Center Nurse 2 #5 R Groin -Time 10:00 08:24 -Correct Patient Yes Yes -Correct Side, Site, Position Yes Yes -Correct Procedure Yes Yes -Procedure Performed Yes Yes -Type of Procedure Debridement Debridement -Clinical Debridement Subcutaneous Subcutaneous -Post Debridement Size (cm) - Length 3.8 3.4 -Post Debridement Size (cm) - Width 0.8 1.0 -Post Debridement Size (cm) - Depth 0.4 0.6 -Total Square Cm 3.04 3.40 -Wound/Ulcer Outcome Not Healed Not Healed -Ulcer Cleansing Not Cleansed Rinsed/ Irrigated with Saline -Foul Odor after Cleansing No No -Bioengineered Tissue No Yes -Type of bioengineered Tissue EPIFIX -Expiration Date 11/07/22 -Product Lot Number [id number] -Percent Used 100 -Saline Lot Number NA -Topical Lidocaine (%) 4 -Lidocaine (ml) 5 -Bleeding Controlled with Pressure NA -Treatment Response Procedure Procedure Tolerated Well Tolerated Well Pain Scale: 0-10 Numeric Is Patient Pain Free? Yes Yes Laterality: Right - Groin Type of Debridement: Excisional debridement Anesthesia Used: 4% Lidocaine Solution Depth: Down to and including healthy tissue, in the subcutaneous layer Percentage of wound debrided: 100 Instrument Used: 5mm curette Severity: Fat Layer Exposed Amount of bleeding with debridement: Mild Bleeding Controlled with: Compression and gauze Patient tolerated procedure well Following a standard excisional debridement, which was well-tolerated, a 2 cm x 2 cm EpiFix allograft was applied. This represents the fourth such allograft application. Upon removal from its sterile packaging, the allograft was cut and fashioned to the appropriate size and shape, and was applied topically to the base of the ulceration. It was then covered with wound veil and gauze, and anchored in place with Steri-Strips. The entire procedure was well-tolerated. 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 In the 1970's, she was diagnosed with malignant melanoma of the right calf, with metastasis to lymph nodes in the right groin. She underwent excision of the melanoma with right groin lymphadenectomy. She was subsequently treated with a long series of radiation treatments to the right groin. During the days of her radiation treatment, it is suspected that the radiation techniques were somewhat early in their evolution, and quite likely that the patient received massive doses of radiation exposure, exceeding doses which would be considered appropriate today , with techniques which are primitive by today's standards. As result, the patient has developed soft tissue radiation injury, and has previously been treated at our wound center in the past with a series of approximately 90 hyperbaric oxygen therapy treatments, in 2011. She presented with recurrence of soft tissue radionecrosis in the right groin. Hyperbaric oxygen therapy treatments have been initiated, and the patient has undergone a series of nearly 90 hyperbaric oxygen treatment sessions. She has shown benefit from the hyperbaric oxygen treatments, which were felt to be clinically warranted, and in accordance with the patient's past history, in which wound healing was effected only after 90 such sessions. She has tolerated hyperbaric oxygen therapy well, without complaints or complications. She has completed her nearly 90 sessions of hyperbaric oxygen treatments. Based upon the appearance of the ulceration several weeks ago, infection was suspected, and the patient was placed on a course of oral Keflex. She has completed the course of Keflex, with good clinical response. At this time, there is no clinical evidence of infection or cellulitis in the daniel-ulcer area. Plan: As stated earlier, cellulitis has improved on Keflex. EpiFix #4 was applied today. The allograft will remain in place until the patient's next visit in 1 week. The patient is to continue with a nutritious diet. She will return in 1 week for reevaluation. Influenza vaccine was not administered today. The patient is not a smoker. She stands 5 feet 7 inches tall. She weighs 198 pounds. Her BMI is 31, which places her in a class I weight category. Weight loss has been recommended. She is to collaborate with her primary care physician in this regard.
== END 2018-02-06 23:59 ==
LOC: WC 08:00
PROVIDERS: Family Provider Family Medicine; PCP Family Medicine; Visit Provider Surgery
DX: L59.8 Other specified disorders of the skin and subcutaneous tissue related to radiation (principal); Y84.2 Radiological procedure and radiotherapy as the cause of abnormal reaction of the patient, or of later complication, without mention of misadventure at the time of the procedure; L98.492 Non-pressure chronic ulcer of skin of other sites with fat layer exposed; Z89.611 Acquired absence of right leg above knee; Z85.42 Personal history of malignant neoplasm of other parts of uterus; Z85.820 Personal history of malignant melanoma of skin; E78.5 Hyperlipidemia, unspecified; K21.9 Gastro-esophageal reflux disease without esophagitis; Z86.14 Personal history of Methicillin resistant Staphylococcus aureus infection; Z87.891 Personal history of nicotine dependence; E66.9 Obesity, unspecified; Z68.31 Body mass index [BMI] 31.0-31.9, adult; Z71.3 Dietary counseling and surveillance
CPT/HCPCS: 11042; 15271; 87070; 87075; 87077; 87186; 87205; Q4131

== ENCOUNTER 2018-03-06 08:30 | Outpatient (RCR) | payer OTHER, SELFPAY ==
[2018-02-07 00:36] VITALS: BP 142/87; PULSE 89; RESP 16; TEMP 36.2; BMI 68.3
[2018-02-13 08:47] VITALS: BP 150/96; PULSE 85; RESP 16; TEMP 35.1; BMI 68.3
--- NOTE | 2018-02-13 09:14 | PCM.WC.HP ---
(1) History of uterine cancer Status: Chronic Current Visit: No Code(s): Z85.42 - Personal history of malignant neoplasm of other parts of uterus (2) History of melanoma Status: Chronic Current Visit: Yes Code(s): Z85.820 - Personal history of malignant melanoma of skin (3) Hyperlipidemia Status: Chronic Current Visit: No Code(s): E78.5 - Hyperlipidemia, unspecified (4) GERD (gastroesophageal reflux disease) Status: Chronic Current Visit: No Code(s): K21.9 - Gastro-esophageal reflux disease without esophagitis (5) Ulcer of right groin Status: Chronic Current Visit: Yes Qualifiers: Non-pressure ulcer stage: with fat layer exposed Code(s): L98.499 - Non-pressure chronic ulcer of skin of other sites with unspecified severity (6) Obesity (BMI 30.0-34.9) Status: Chronic Current Visit: No Code(s): E66.9 - Obesity, unspecified (7) Amputee, above knee Status: Chronic Current Visit: No Qualifiers: Code(s): Z89.619 - Acquired absence of unspecified leg above knee (8) Soft tissue radionecrosis Status: Chronic Current Visit: Yes Code(s): L59.8 - Other specified disorders of the skin and subcutaneous tissue related to radiation; Y84.2 - Radiological procedure and radiotherapy as the cause of abnormal reaction of the patient, or of later complication, without mention of misadventure at the time of the procedure (9) soft tissue radiation injury Status: Chronic Current Visit: Yes History of Present Illness Date of Service: 02/13/18 Chief Complaint: 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 The patient underwent excision of her melanoma with lymphadenectomy in the right groin. She also underwent lengthy radiation treatments at the [facility] in [place], [place]. Melanoma recurred, and the patient was subsequently treated with monoclonal antibodies in 1984. 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 Treatment included local ulcer care and hyperbaric oxygen therapy. She underwent a total of nearly 90 treatments of hyperbaric oxygen therapy. It is known that she tolerated the therapies well, and derived significant benefit. She relates no history of claustrophobia, or other complications related to the hyperbaric oxygen therapy treatments. She has no history of barotrauma to lungs, ears, etc. Her medical history has been reviewed, without any evidence of contraindications to hyperbaric oxygen therapy. Hyperbaric oxygen therapy has been administered for nearly 90 treatment sessions. We are currently using EpiFix allograft, and she has undergone 4 applications thus far. The patient's history suggests that the right groin wound in the past responded to hyperbaric oxygen therapy, but required 90 such sessions. It appears as though the patient's current clinical course is mimicking that of the past, with wound healing which is very recalcitrant to conventional treatment measures. 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 She is undergone excision of melanoma from the right calf, with lymphadenectomy of the right groin in the 1969's. She subsequently required surgeries of the right thigh related to osteomyelitis, MRSA infection, and radiation injury to the right femoral artery. Ultimately, the patient required right above-knee amputation, performed in 2000. She also has a remote history of open reduction and internal fixation of a right ankle fracture. Allergies/Adverse Reactions: Allergies No Known Allergies Allergy (Verified 06/20/17 09:22) Home Medications: Ambulatory Orders Medication Instructions Recorded Famotidine 20 mg PO 06/20/17 Pravastatin [Pravachol] 20 mg PO DAILY 06/20/17 - Family History Maternal - - The patient's mother is 98 years of age and relatively healthy. The patient's father at age of 79 with a history of cardiomyopathy. Smoking Status: Former smoker Tobacco Use: Non-smoker Review of Systems Constitutional: Denies: Chills, Fever, Weight Change Eyes: Denies: Pain, Vision Change HEENT: Denies: Difficulty Hearing, Difficulty Swallowing, Sinus Congestion Cardiovascular: Denies: Chest Pain, Palpitations Respiratory: Denies: Cough, Shortness of Breath Gastrointestinal: Denies: Diarrhea, Nausea, Vomiting Genitourinary: Denies: Dysuria, Hematuria Endocrine: Denies: Heat/ Cold Intolerance, Polydipsia, Polyuria Hematologic/ Lymphatic: Denies: Easy Bruising, Easy Bleeding - Physical Exam Vital Signs Temp Pulse Resp BP 95.1 F L 85 16 150/96 H 02/13/18 08:47 02/13/18 08:47 02/13/18 08:47 02/13/18 08:47 General: Alert, Oriented x3, Cooperative, No apparent distress, Well developed, Well nourished HEENT: Atraumatic, PERRLA, EOMI, Normocephalic Oral: Moist Mucosa Neck: No JVD Lungs: Normal air movement Abdomen: Non-Distended Extremities: No clubbing, No cyanosis, No edema, No Calf Tenderness, - - The patient has a well-healed right above-knee amputation stump. The open ulceration in the right groin is little changed in appearance. Dimensions are documented elsewhere. There is no sign of infection or cellulitis. The base of the ulceration is generally pink and healthy in appearance, with areas of pink granulation tissue. The daniel-ulcer skin is intact, without cellulitis or inflammatory changes. Wound Measurements and Assessment WC - Nurse 1 - General Ulcer Measurement Start: 02/13/18 08:47 Freq: Status: Active Protocol: Activity Type Activity Date Activity User E-Sign Co-Sign Detail Recorded Client Recorded Date Recorded By Document 02/13/18 08:47 [id number] 02/13/18 08:50 02/13/18 08:47 Wound Center Nurse 1 [Ulcer Assessment] #5 R Groin -Combined with other wound No -Current Size (cm) - Length 3.3 -Current Size (cm) - Width 0.9 -Current Size (cm) - Depth 0.2 -Total Square Cm 2.97 -Photo Taken No -Epithelialization Small 1-33% -Tunneling No -Undermining/Tunneling No -Circular Undermining No -Exudate Amt Small (1-33%) -Exudate Type Serosanguineous -Wound Margin Distinct, Outline Attached -Granulation Amt Medium (34-66%) -Granulation Quality Pale [place] -Slough/Fibrin Yes -Necrosis Amt None Present (0 %) -Necrotic Tissue Type Adherent Slough -Texture (Daniel-wound Skin Appearance) No Abnormality Assessed -Moisture (Daniel-wound Skin Appearance No Abnormality ) Assessed -Color (Daniel-wound Skin Appearance) No Abnormality Assessed -Temperature (Daniel-wound Skin No Abnormality Appearance) (Pt Warm) -Tenderness on Palpation (Daniel-wound No Skin Appearance) -Ulcer Cleansing Rinsed/ Irrigated with Saline -Foul Odor after Cleansing No -Anesthetic Used 4% Lidocaine Solution [Edema Assessment] -Lower Limb Edema Present NA WC - Nurse 2 - General Ulcer CM Notes Start: 02/13/18 08:47 Freq: Status: Active Protocol: Activity Type Activity Date Activity User E-Sign Co-Sign Detail Recorded Client Recorded Date Recorded By Document 02/13/18 09:07 [email or web address] [id number] 02/13/18 09:09 KEILA 02/13/18 09:07 Wound Center Nurse 2 [Procedure/Treatment] #5 R Groin -Time 09:07 -Correct Patient Yes -Correct Side, Site, Position Yes -Correct Procedure Yes -Procedure Performed Yes -Type of Procedure Debridement -Clinical Debridement Subcutaneous -Post Debridement Size (cm) - Length 3.4 -Post Debridement Size (cm) - Width 1.0 -Post Debridement Size (cm) - Depth 0.2 -Total Square Cm 3.40 -Wound/Ulcer Outcome Not Healed -Ulcer Cleansing Rinsed/ Irrigated with Saline -Foul Odor after Cleansing No -Bioengineered Tissue Yes -Type of bioengineered Tissue EPIFIX -Expiration Date 11/07/22 -Product Lot Number [id number] -Percent Used 100 -Saline Lot Number N/A -Topical Lidocaine (%) 4 -Lidocaine (ml) 5 -Bleeding Controlled with NA -Treatment Response Procedure Tolerated Well [See Physician Procedure note for Specifics] Pain Scale: 0-10 Numeric [Pain] -Is Patient Pain Free? Yes Musculoskeletal: No Muscle Wasting Neurological: Cranial nerves II-XII grossly intact, Neuro grossly intact Psych/Mental Status: Normal Affect, Appropriate, Alert and oriented to time, place, person, mood and affect Debridement Note Post-Debridement Measurements/Treatment WC - Nurse 2 - General Ulcer CM Notes Start: 02/13/18 08:47 Freq: Status: Active Protocol: Activity Type Activity Date Activity User E-Sign Co-Sign Detail Recorded Client Recorded Date Recorded By Document 02/13/18 09:07 [email or web address] [id number] 02/13/18 09:09 KEILA 02/13/18 09:07 Wound Center Nurse 2 #5 R Groin -Time 09:07 -Correct Patient Yes -Correct Side, Site, Position Yes -Correct Procedure Yes -Procedure Performed Yes -Type of Procedure Debridement -Clinical Debridement Subcutaneous -Post Debridement Size (cm) - Length 3.4 -Post Debridement Size (cm) - Width 1.0 -Post Debridement Size (cm) - Depth 0.2 -Total Square Cm 3.40 -Wound/Ulcer Outcome Not Healed -Ulcer Cleansing Rinsed/ Irrigated with Saline -Foul Odor after Cleansing No -Bioengineered Tissue Yes -Type of bioengineered Tissue EPIFIX -Expiration Date 11/07/22 -Product Lot Number [id number] -Percent Used 100 -Saline Lot Number N/A -Topical Lidocaine (%) 4 -Lidocaine (ml) 5 -Bleeding Controlled with NA -Treatment Response Procedure Tolerated Well Pain Scale: 0-10 Numeric Is Patient Pain Free? Yes Laterality: Right - Groin Type of Debridement: Excisional debridement Anesthesia Used: 4% Lidocaine Solution Depth: Down to and including healthy tissue, in the subcutaneous layer Percentage of wound debrided: 100 Instrument Used: 5mm curette Severity: Fat Layer Exposed Amount of bleeding with debridement: Mild Bleeding Controlled with: Compression and gauze Patient tolerated procedure well Following a standard excisional debridement, which was well-tolerated by the patient, a 2 cm x 2 cm EpiFix graft was applied to the base of the ulceration. Upon removal from its sterile packaging, the allograft was cut to the appropriate size and configuration. It was then applied, over which wound veil and gauze were placed. This was then held in place with Steri-Strips. The procedure was well-tolerated. 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 In the 1970's, she was diagnosed with malignant melanoma of the right calf, with metastasis to lymph nodes in the right groin. She underwent excision of the melanoma with right groin lymphadenectomy. She was subsequently treated with a long series of radiation treatments to the right groin. During the days of her radiation treatment, it is suspected that the radiation techniques were somewhat early in their evolution, and quite likely that the patient received massive doses of radiation exposure, exceeding doses which would be considered appropriate today, with techniques which are primitive by today's standards. As result, the patient has developed soft tissue radiation injury, and has previously been treated at our wound center in the past with a series of approximately 90 hyperbaric oxygen therapy treatments, in 2012. She presented with recurrence of soft tissue radionecrosis in the right groin. Hyperbaric oxygen therapy treatments have been initiated, and the patient has undergone a series of nearly 90 hyperbaric oxygen treatment sessions. She has shown benefit from the hyperbaric oxygen treatments, which were felt to be clinically warranted, and in accordance with the patient's past history, in which wound healing was effected only after 90 such sessions. She has tolerated hyperbaric oxygen therapy well, without complaints or complications. She has completed her nearly 90 sessions of hyperbaric oxygen treatments. At this time, there is no clinical evidence of infection or cellulitis in the daniel-ulcer area. Clearly, the patient is responding very slowly to the variety of conventional treatment measures which have been implemented. However, in review of the patient's past history, such has been the case previously, as each treatment course has been rather protracted and lengthy in nature to achieve ultimate healing. Plan: EpiFix #5 was applied today. The allograft will remain in place until the patient's next visit in 1 week. The patient is to continue with a nutritious diet. She will return in 1 week for reevaluation. Influenza vaccine was not administered today. The patient is not a smoker. She stands 5 feet 7 inches tall. She weighs 198 pounds. Her BMI is 31, which places her in a class I weight category. Weight loss has been recommended. She is to collaborate with her primary care physician in this regard.
--- NOTE | 2018-02-13 09:18 | HP.PCM_ITS ---
(1) History of uterine cancer Status: Chronic Current Visit: No Code(s): Z85.42 - Personal history of malignant neoplasm of other parts of uterus (2) History of melanoma Status: Chronic Current Visit: Yes Code(s): Z85.820 - Personal history of malignant melanoma of skin (3) Hyperlipidemia Status: Chronic Current Visit: No Code(s): E78.5 - Hyperlipidemia, unspecified (4) GERD (gastroesophageal reflux disease) Status: Chronic Current Visit: No Code(s): K21.9 - Gastro-esophageal reflux disease without esophagitis (5) Ulcer of right groin Status: Chronic Current Visit: Yes Qualifiers: Non-pressure ulcer stage: with fat layer exposed Code(s): L98.499 - Non-pressure chronic ulcer of skin of other sites with unspecified severity (6) Obesity (BMI 30.0-34.9) Status: Chronic Current Visit: No Code(s): E66.9 - Obesity, unspecified (7) Amputee, above knee Status: Chronic Current Visit: No Qualifiers: Code(s): Z89.619 - Acquired absence of unspecified leg above knee (8) Soft tissue radionecrosis Status: Chronic Current Visit: Yes Code(s): L59.8 - Other specified disorders of the skin and subcutaneous tissue related to radiation; Y84.2 - Radiological procedure and radiotherapy as the cause of abnormal reaction of the patient, or of later complication, without mention of misadventure at the time of the procedure (9) soft tissue radiation injury Status: Chronic Current Visit: Yes History of Present Illness Date of Service: 02/13/18 Chief Complaint: 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 The patient underwent excision of her melanoma with lymphadenectomy in the right groin. She also underwent lengthy radiation treatments at the [facility] in [place], [place]. Melanoma recurred, and the patient was subsequently treated with monoclonal antibodies in 1984. 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 Treatment included local ulcer care and hyperbaric oxygen therapy. She underwent a total of nearly 90 treatments of hyperbaric oxygen therapy. It is known that she tolerated the therapies well, and derived significant benefit. She relates no history of claustrophobia, or other complications related to the hyperbaric oxygen therapy treatments. She has no history of barotrauma to lungs , ears, etc. Her medical history has been reviewed, without any evidence of contraindications to hyperbaric oxygen therapy. Hyperbaric oxygen therapy has been administered for nearly 90 treatment sessions. We are currently using EpiFix allograft, and she has undergone 4 applications thus far. The patient's history suggests that the right groin wound in the past responded to hyperbaric oxygen therapy, but required 90 such sessions. It appears as though the patient' s current clinical course is mimicking that of the past, with wound healing which is very recalcitrant to conventional treatment measures. 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 She is undergone excision of melanoma from the right calf, with lymphadenectomy of the right groin in the 1969's. She subsequently required surgeries of the right thigh related to osteomyelitis, MRSA infection, and radiation injury to the right femoral artery. Ultimately, the patient required right above-knee amputation, performed in 2000. She also has a remote history of open reduction and internal fixation of a right ankle fracture. Allergies/Adverse Reactions: Allergies No Known Allergies Allergy (Verified 06/20/17 09:22) Home Medications: Ambulatory Orders Medication Instructions Recorded Famotidine 20 mg PO 06/20/17 Pravastatin [Pravachol] 20 mg PO DAILY 06/20/17 - Family History Maternal - - The patient's mother is 98 years of age and relatively healthy. The patient 's father at age of 79 with a history of cardiomyopathy. Smoking Status: Former smoker Tobacco Use: Non-smoker Review of Systems Constitutional: Denies: Chills, Fever, Weight Change Eyes: Denies: Pain, Vision Change HEENT: Denies: Difficulty Hearing, Difficulty Swallowing, Sinus Congestion Cardiovascular: Denies: Chest Pain, Palpitations Respiratory: Denies: Cough, Shortness of Breath Gastrointestinal: Denies: Diarrhea, Nausea, Vomiting Genitourinary: Denies: Dysuria, Hematuria Endocrine: Denies: Heat/ Cold Intolerance, Polydipsia, Polyuria Hematologic/ Lymphatic: Denies: Easy Bruising, Easy Bleeding - Physical Exam Vital Signs Temp Pulse Resp BP 95.1 F L 85 16 150/96 H 02/13/18 08:47 02/13/18 08:47 02/13/18 08:47 02/13/18 08:47 General: Alert, Oriented x3, Cooperative, No apparent distress, Well developed, Well nourished HEENT: Atraumatic, PERRLA, EOMI, Normocephalic Oral: Moist Mucosa Neck: No JVD Lungs: Normal air movement Abdomen: Non-Distended Extremities: No clubbing, No cyanosis, No edema, No Calf Tenderness, - - The patient has a well-healed right above-knee amputation stump. The open ulceration in the right groin is little changed in appearance. Dimensions are documented elsewhere. There is no sign of infection or cellulitis. The base of the ulceration is generally pink and healthy in appearance, with areas of pink granulation tissue. The daniel-ulcer skin is intact, without cellulitis or inflammatory changes. Wound Measurements and Assessment WC - Nurse 1 - General Ulcer Measurement Start: 02/13/18 08:47 Freq: Status: Active Protocol: Activity Type Activity Date Activity User E-Sign Co-Sign Detail Recorded Client Recorded Date Recorded By Document 02/13/18 08:47 [id number] 02/13/18 08:50 02/13/18 08:47 Wound Center Nurse 1 [Ulcer Assessment] #5 R Groin -Combined with other wound No -Current Size (cm) - Length 3.3 -Current Size (cm) - Width 0.9 -Current Size (cm) - Depth 0.2 -Total Square Cm 2.97 -Photo Taken No -Epithelialization Small 1-33% -Tunneling No -Undermining/Tunneling No -Circular Undermining No -Exudate Amt Small (1-33%) -Exudate Type Serosanguineous -Wound Margin Distinct, Outline Attached -Granulation Amt Medium (34-66%) -Granulation Quality Pale [place] -Slough/Fibrin Yes -Necrosis Amt None Present (0 %) -Necrotic Tissue Type Adherent Slough -Texture (Daniel-wound Skin Appearance) No Abnormality Assessed -Moisture (Daniel-wound Skin Appearance No Abnormality ) Assessed -Color (Daniel-wound Skin Appearance) No Abnormality Assessed -Temperature (Daniel-wound Skin No Abnormality Appearance) (Pt Warm) -Tenderness on Palpation (Daniel-wound No Skin Appearance) -Ulcer Cleansing Rinsed/ Irrigated with Saline -Foul Odor after Cleansing No -Anesthetic Used 4% Lidocaine Solution [Edema Assessment] -Lower Limb Edema Present NA WC - Nurse 2 - General Ulcer CM Notes Start: 02/13/18 08:47 Freq: Status: Active Protocol: Activity Type Activity Date Activity User E-Sign Co-Sign Detail Recorded Client Recorded Date Recorded By Document 02/13/18 09:07 KEILA [id number] 02/13/18 09:09 KEILA 02/13/18 09:07 Wound Center Nurse 2 [Procedure/Treatment] #5 R Groin -Time 09:07 -Correct Patient Yes -Correct Side, Site, Position Yes -Correct Procedure Yes -Procedure Performed Yes -Type of Procedure Debridement -Clinical Debridement Subcutaneous -Post Debridement Size (cm) - Length 3.4 -Post Debridement Size (cm) - Width 1.0 -Post Debridement Size (cm) - Depth 0.2 -Total Square Cm 3.40 -Wound/Ulcer Outcome Not Healed -Ulcer Cleansing Rinsed/ Irrigated with Saline -Foul Odor after Cleansing No -Bioengineered Tissue Yes -Type of bioengineered Tissue EPIFIX -Expiration Date 11/07/22 -Product Lot Number [id number] -Percent Used 100 -Saline Lot Number N/A -Topical Lidocaine (%) 4 -Lidocaine (ml) 5 -Bleeding Controlled with NA -Treatment Response Procedure Tolerated Well [See Physician Procedure note for Specifics] Pain Scale: 0-10 Numeric [Pain] -Is Patient Pain Free? Yes Musculoskeletal: No Muscle Wasting Neurological: Cranial nerves II-XII grossly intact, Neuro grossly intact Psych/Mental Status: Normal Affect, Appropriate, Alert and oriented to time, place, person, mood and affect Debridement Note Post-Debridement Measurements/Treatment WC - Nurse 2 - General Ulcer CM Notes Start: 02/13/18 08:47 Freq: Status: Active Protocol: Activity Type Activity Date Activity User E-Sign Co-Sign Detail Recorded Client Recorded Date Recorded By Document 02/13/18 09:07 KEILA [id number] 02/13/18 09:09 KEILA 02/13/18 09:07 Wound Center Nurse 2 #5 R Groin -Time 09:07 -Correct Patient Yes -Correct Side, Site, Position Yes -Correct Procedure Yes -Procedure Performed Yes -Type of Procedure Debridement -Clinical Debridement Subcutaneous -Post Debridement Size (cm) - Length 3.4 -Post Debridement Size (cm) - Width 1.0 -Post Debridement Size (cm) - Depth 0.2 -Total Square Cm 3.40 -Wound/Ulcer Outcome Not Healed -Ulcer Cleansing Rinsed/ Irrigated with Saline -Foul Odor after Cleansing No -Bioengineered Tissue Yes -Type of bioengineered Tissue EPIFIX -Expiration Date 11/07/22 -Product Lot Number [id number] -Percent Used 100 -Saline Lot Number N/A -Topical Lidocaine (%) 4 -Lidocaine (ml) 5 -Bleeding Controlled with NA -Treatment Response Procedure Tolerated Well Pain Scale: 0-10 Numeric Is Patient Pain Free? Yes Laterality: Right - Groin Type of Debridement: Excisional debridement Anesthesia Used: 4% Lidocaine Solution Depth: Down to and including healthy tissue, in the subcutaneous layer Percentage of wound debrided: 100 Instrument Used: 5mm curette Severity: Fat Layer Exposed Amount of bleeding with debridement: Mild Bleeding Controlled with: Compression and gauze Patient tolerated procedure well Following a standard excisional debridement, which was well-tolerated by the patient, a 2 cm x 2 cm EpiFix graft was applied to the base of the ulceration. Upon removal from its sterile packaging, the allograft was cut to the appropriate size and configuration. It was then applied, over which wound veil and gauze were placed. This was then held in place with Steri-Strips. The procedure was well-tolerated. 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 In the 1970's, she was diagnosed with malignant melanoma of the right calf, with metastasis to lymph nodes in the right groin. She underwent excision of the melanoma with right groin lymphadenectomy. She was subsequently treated with a long series of radiation treatments to the right groin. During the days of her radiation treatment, it is suspected that the radiation techniques were somewhat early in their evolution, and quite likely that the patient received massive doses of radiation exposure, exceeding doses which would be considered appropriate today , with techniques which are primitive by today's standards. As result, the patient has developed soft tissue radiation injury, and has previously been treated at our wound center in the past with a series of approximately 90 hyperbaric oxygen therapy treatments, in 2012. She presented with recurrence of soft tissue radionecrosis in the right groin. Hyperbaric oxygen therapy treatments have been initiated, and the patient has undergone a series of nearly 90 hyperbaric oxygen treatment sessions. She has shown benefit from the hyperbaric oxygen treatments, which were felt to be clinically warranted, and in accordance with the patient's past history, in which wound healing was effected only after 90 such sessions. She has tolerated hyperbaric oxygen therapy well, without complaints or complications. She has completed her nearly 90 sessions of hyperbaric oxygen treatments. At this time, there is no clinical evidence of infection or cellulitis in the daniel-ulcer area. Clearly, the patient is responding very slowly to the variety of conventional treatment measures which have been implemented. However, in review of the patient's past history, such has been the case previously, as each treatment course has been rather protracted and lengthy in nature to achieve ultimate healing. Plan: EpiFix #5 was applied today. The allograft will remain in place until the patient's next visit in 1 week. The patient is to continue with a nutritious diet. She will return in 1 week for reevaluation. Influenza vaccine was not administered today. The patient is not a smoker. She stands 5 feet 7 inches tall. She weighs 198 pounds. Her BMI is 31, which places her in a class I weight category. Weight loss has been recommended. She is to collaborate with her primary care physician in this regard.
[2018-02-20 09:16] VITALS: BP 142/92; PULSE 78; RESP 20; TEMP 36.6; BMI 68.3
--- NOTE | 2018-02-20 10:52 | PCM.WC.HP ---
(1) History of uterine cancer Status: Chronic Current Visit: No Code(s): Z85.42 - Personal history of malignant neoplasm of other parts of uterus (2) History of melanoma Status: Chronic Current Visit: Yes Code(s): Z85.820 - Personal history of malignant melanoma of skin (3) Hyperlipidemia Status: Chronic Current Visit: No Code(s): E78.5 - Hyperlipidemia, unspecified (4) GERD (gastroesophageal reflux disease) Status: Chronic Current Visit: No Code(s): K21.9 - Gastro-esophageal reflux disease without esophagitis (5) Ulcer of right groin Status: Chronic Current Visit: Yes Qualifiers: Non-pressure ulcer stage: with fat layer exposed Code(s): L98.499 - Non-pressure chronic ulcer of skin of other sites with unspecified severity (6) Obesity (BMI 30.0-34.9) Status: Chronic Current Visit: No Code(s): E66.9 - Obesity, unspecified (7) Amputee, above knee Status: Chronic Current Visit: No Qualifiers: Code(s): Z89.619 - Acquired absence of unspecified leg above knee (8) Soft tissue radionecrosis Status: Chronic Current Visit: Yes Code(s): L59.8 - Other specified disorders of the skin and subcutaneous tissue related to radiation; Y84.2 - Radiological procedure and radiotherapy as the cause of abnormal reaction of the patient, or of later complication, without mention of misadventure at the time of the procedure (9) soft tissue radiation injury Status: Chronic Current Visit: Yes History of Present Illness Date of Service: 02/20/18 Chief Complaint: 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 The patient underwent excision of her melanoma with lymphadenectomy in the right groin. She also underwent lengthy radiation treatments at the [facility] in [place], [place]. Melanoma recurred, and the patient was subsequently treated with monoclonal antibodies in 1984. 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 Treatment included local ulcer care and hyperbaric oxygen therapy. She underwent a total of nearly 90 treatments of hyperbaric oxygen therapy. It is known that she tolerated the therapies well, and derived significant benefit. She relates no history of claustrophobia, or other complications related to the hyperbaric oxygen therapy treatments. She has no history of barotrauma to lungs, ears, etc. Her medical history has been reviewed, without any evidence of contraindications to hyperbaric oxygen therapy. Hyperbaric oxygen therapy has been administered for nearly 90 treatment sessions. We are currently using EpiFix allograft, and she has undergone 4 applications thus far. The patient's history suggests that the right groin wound in the past responded to hyperbaric oxygen therapy, but required 90 such sessions. It appears as though the patient's current clinical course is mimicking that of the past, with wound healing which is very recalcitrant to conventional treatment measures. 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 She is undergone excision of melanoma from the right calf, with lymphadenectomy of the right groin in the 1969's. She subsequently required surgeries of the right thigh related to osteomyelitis, MRSA infection, and radiation injury to the right femoral artery. Ultimately, the patient required right above-knee amputation, performed in 2000. She also has a remote history of open reduction and internal fixation of a right ankle fracture. Allergies/Adverse Reactions: Allergies No Known Allergies Allergy (Verified 06/20/17 09:22) Home Medications: Ambulatory Orders Medication Instructions Recorded Famotidine 20 mg PO 06/20/17 Pravastatin [Pravachol] 20 mg PO DAILY 06/20/17 - Family History Maternal - - The patient's mother is 98 years of age and relatively healthy. The patient's father at age of 79 with a history of cardiomyopathy. Smoking Status: Former smoker Tobacco Use: Non-smoker Review of Systems Constitutional: Denies: Chills, Fever, Weight Change Eyes: Denies: Pain, Vision Change HEENT: Denies: Difficulty Hearing, Difficulty Swallowing, Sinus Congestion Cardiovascular: Denies: Chest Pain, Palpitations Respiratory: Denies: Cough, Shortness of Breath Gastrointestinal: Denies: Diarrhea, Nausea, Vomiting Genitourinary: Denies: Dysuria, Hematuria Endocrine: Denies: Heat/ Cold Intolerance, Polydipsia, Polyuria Hematologic/ Lymphatic: Denies: Easy Bruising, Easy Bleeding - Physical Exam Vital Signs Temp Pulse Resp BP 97.9 F 78 20 H 142/92 H 02/20/18 09:16 02/20/18 09:16 02/20/18 09:16 02/20/18 09:16 General: Alert, Oriented x3, Cooperative, No apparent distress, Well developed, Well nourished HEENT: Atraumatic, PERRLA, EOMI, Normocephalic Oral: Moist Mucosa Neck: No JVD Lungs: Normal air movement Abdomen: Non-Distended Extremities: No clubbing, No cyanosis, No edema, No Calf Tenderness, - - Right above-knee amputation is noted, which is well-healed. The ulcer in the right groin is slightly improved, slightly smaller. There is evidence of peripheral epithelialization. There is a mild amount of bioburden. The patient the wound is generally pink and healthy in appearance. Dimensions are documented elsewhere. There is no sign of infection or cellulitis. Skin: No rashes Wound Measurements and Assessment WC - Nurse 1 - General Ulcer Measurement Start: 02/13/18 08:47 Freq: Status: Active Protocol: Activity Type Activity Date Activity User E-Sign Co-Sign Detail Recorded Client Recorded Date Recorded By Document 02/20/18 09:16 DL [id number] 02/20/18 09:22 DL 02/20/18 09:16 Wound Center Nurse 1 [Ulcer Assessment] #5 R Groin -Current Size (cm) - Length 3.2 -Current Size (cm) - Width 0.9 -Current Size (cm) - Depth 0.3 -Total Square Cm 2.88 -Photo Taken No -Exudate Amt Medium (34-66%) -Exudate Type Serosanguineous -Wound Margin Thickened & Rolled Under -Granulation Amt Large (67-100%) -Granulation Quality Pale [place] -Necrosis Amt Small (1-33%) -Necrotic Tissue Type Adherent Slough -Structure Exposed N/A -Texture (Daniel-wound Skin Appearance) Scarring -Moisture (Daniel-wound Skin Appearance No Abnormality ) -Color (Daniel-wound Skin Appearance) No Abnormality -Temperature (Daniel-wound Skin No Abnormality Appearance) (Pt Warm) -Ulcer Cleansing Rinsed/ Irrigated with Saline -Foul Odor after Cleansing No -Anesthetic Used 4% Lidocaine Solution - Nurse 2 - General Ulcer CM Notes Start: 02/13/18 08:47 Freq: Status: Active Protocol: Activity Type Activity Date Activity User E-Sign Co-Sign Detail Recorded Client Recorded Date Recorded By Document 02/20/18 10:37 [email or web address] [id number] 02/20/18 10:44 JS 02/20/18 10:37 Wound Center Nurse 2 [Procedure/Treatment] -Time 10:37 -Correct Patient Yes -Correct Side, Site, Position Yes -Correct Procedure Yes -Procedure Performed Yes -Type of Procedure Debridement -Clinical Debridement Subcutaneous -Post Debridement Size (cm) - Length 3.3 -Post Debridement Size (cm) - Width 1.0 -Post Debridement Size (cm) - Depth 0.3 -Total Square Cm 3.30 -Wound/Ulcer Outcome Not Healed -Ulcer Cleansing Rinsed/ Irrigated with Saline -Foul Odor after Cleansing No -Bioengineered Tissue No -Bleeding Controlled with NA -Treatment Response Procedure Tolerated Well [See Physician Procedure note for Specifics] Pain Scale: 0-10 Numeric [Pain] -Is Patient Pain Free? Yes Neurological: Cranial nerves II-XII grossly intact, Neuro grossly intact Psych/Mental Status: Normal Affect, Appropriate, Alert and oriented to time, place, person, mood and affect Debridement Note Post-Debridement Measurements/Treatment - Nurse 2 - General Ulcer CM Notes Start: 02/13/18 08:47 Freq: Status: Active Protocol: Activity Type Activity Date Activity User E-Sign Co-Sign Detail Recorded Client Recorded Date Recorded By Document 02/13/18 09:07 KEILA [id number] 02/13/18 09:09 JS Document 02/20/18 10:37 [id number] 02/20/18 10:44 JS 02/13/18 02/20/18 09:07 10:37 Wound Center Nurse 2 #5 R Groin -Time 09:07 10:37 -Correct Patient Yes Yes -Correct Side, Site, Position Yes Yes -Correct Procedure Yes Yes -Procedure Performed Yes Yes -Type of Procedure Debridement Debridement -Clinical Debridement Subcutaneous Subcutaneous -Post Debridement Size (cm) - Length 3.4 3.3 -Post Debridement Size (cm) - Width 1.0 1.0 -Post Debridement Size (cm) - Depth 0.2 0.3 -Total Square Cm 3.40 3.30 -Wound/Ulcer Outcome Not Healed Not Healed -Ulcer Cleansing Rinsed/ Rinsed/ Irrigated with Irrigated with Saline Saline -Foul Odor after Cleansing No No -Bioengineered Tissue Yes No -Type of bioengineered Tissue EPIFIX -Expiration Date 11/07/22 -Product Lot Number [id number] -Percent Used 100 -Saline Lot Number N/A -Topical Lidocaine (%) 4 -Lidocaine (ml) 5 -Bleeding Controlled with NA NA -Treatment Response Procedure Procedure Tolerated Well Tolerated Well Pain Scale: 0-10 Numeric Is Patient Pain Free? 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 In the 1969's, she was diagnosed with malignant melanoma of the right calf, with metastasis to lymph nodes in the right groin. She underwent excision of the melanoma with right groin lymphadenectomy. She was subsequently treated with a long series of radiation treatments to the right groin. During the days of her radiation treatment, it is suspected that the radiation techniques were somewhat early in their evolution, and quite likely that the patient received massive doses of radiation exposure, exceeding doses which would be considered appropriate today, with techniques which are primitive by today's standards. As result, the patient has developed soft tissue radiation injury, and has previously been treated at our wound center in the past with a series of approximately 90 hyperbaric oxygen therapy treatments, in 2011. She presented with recurrence of soft tissue radionecrosis in the right groin. Hyperbaric oxygen therapy treatments have been initiated, and the patient has undergone a series of nearly 90 hyperbaric oxygen treatment sessions. She has shown benefit from the hyperbaric oxygen treatments, which were felt to be clinically warranted, and in accordance with the patient's past history, in which wound healing was effected only after 90 such sessions. She has tolerated hyperbaric oxygen therapy well, without complaints or complications. She has completed her nearly 90 sessions of hyperbaric oxygen treatments. At this time, there is no clinical evidence of infection or cellulitis in the daniel-ulcer area. Clearly, the patient is responding very slowly to the variety of conventional treatment measures which have been implemented. However, in review of the patient's past history, such has been the case previously, as each treatment course has been rather protracted and lengthy in nature to achieve ultimate healing. Plan: EpiFix #5 was applied last week. Additional allograft applications are felt to be warranted, but have been denied by the patient's insurance. We are seeking preauthorization for additional allograft applications. At this juncture, we will transition to the use of Mary topically, which will be changed every second or third day by the patient. She will return in 1 week for reassessment. The patient is to continue with a nutritious diet. Influenza vaccine was not administered today. The patient is not a smoker. She stands 5 feet 7 inches tall. She weighs 198 pounds. Her BMI is 31, which places her in a class I weight category. Weight loss has been recommended. She is to collaborate with her primary care physician in this regard.
[2018-02-27 08:15] VITALS: BP 149/87; PULSE 83; RESP 18; TEMP 36; BMI 68.3
--- NOTE | 2018-02-27 08:33 | PCM.WC.HP ---
(1) History of uterine cancer Status: Chronic Current Visit: No Code(s): Z85.42 - Personal history of malignant neoplasm of other parts of uterus (2) History of melanoma Status: Chronic Current Visit: Yes Code(s): Z85.820 - Personal history of malignant melanoma of skin (3) Hyperlipidemia Status: Chronic Current Visit: No Code(s): E78.5 - Hyperlipidemia, unspecified (4) GERD (gastroesophageal reflux disease) Status: Chronic Current Visit: No Code(s): K21.9 - Gastro-esophageal reflux disease without esophagitis (5) Ulcer of right groin Status: Chronic Current Visit: Yes Qualifiers: Non-pressure ulcer stage: with fat layer exposed Code(s): L98.499 - Non-pressure chronic ulcer of skin of other sites with unspecified severity (6) Obesity (BMI 30.0-34.9) Status: Chronic Current Visit: No Code(s): E66.9 - Obesity, unspecified (7) Amputee, above knee Status: Chronic Current Visit: No Qualifiers: Code(s): Z89.619 - Acquired absence of unspecified leg above knee (8) Soft tissue radionecrosis Status: Chronic Current Visit: Yes Code(s): L59.8 - Other specified disorders of the skin and subcutaneous tissue related to radiation; Y84.2 - Radiological procedure and radiotherapy as the cause of abnormal reaction of the patient, or of later complication, without mention of misadventure at the time of the procedure (9) soft tissue radiation injury Status: Chronic Current Visit: Yes History of Present Illness Date of Service: 02/27/18 Chief Complaint: 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 The patient underwent excision of her melanoma with lymphadenectomy in the right groin. She also underwent lengthy radiation treatments at the [facility] in [place], [place]. Melanoma recurred, and the patient was subsequently treated with monoclonal antibodies in 1984. 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 Treatment included local ulcer care and hyperbaric oxygen therapy. She underwent a total of nearly 90 treatments of hyperbaric oxygen therapy. It is known that she tolerated the therapies well, and derived significant benefit. She relates no history of claustrophobia, or other complications related to the hyperbaric oxygen therapy treatments. She has no history of barotrauma to lungs, ears, etc. Her medical history has been reviewed, without any evidence of contraindications to hyperbaric oxygen therapy. Hyperbaric oxygen therapy has been administered for nearly 90 treatment sessions. We are currently using EpiFix allograft, and she has undergone 4 applications thus far. The patient's history suggests that the right groin wound in the past responded to hyperbaric oxygen therapy, but required 90 such sessions. It appears as though the patient's current clinical course is mimicking that of the past, with wound healing which is very recalcitrant to conventional treatment measures. 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 She is undergone excision of melanoma from the right calf, with lymphadenectomy of the right groin in the 1969's. She subsequently required surgeries of the right thigh related to osteomyelitis, MRSA infection, and radiation injury to the right femoral artery. Ultimately, the patient required right above-knee amputation, performed in 2000. She also has a remote history of open reduction and internal fixation of a right ankle fracture. Allergies/Adverse Reactions: Allergies No Known Allergies Allergy (Verified 06/20/17 09:22) Home Medications: Ambulatory Orders Medication Instructions Recorded Famotidine 20 mg PO 06/20/17 Pravastatin [Pravachol] 20 mg PO DAILY 06/20/17 - Family History Maternal - - The patient's mother is 98 years of age and relatively healthy. The patient's father at age of 79 with a history of cardiomyopathy. Smoking Status: Former smoker Tobacco Use: Non-smoker Review of Systems Constitutional: Denies: Chills, Fever, Weight Change Eyes: Denies: Pain, Vision Change HEENT: Denies: Difficulty Hearing, Difficulty Swallowing, Sinus Congestion Cardiovascular: Denies: Chest Pain, Palpitations Respiratory: Denies: Cough, Shortness of Breath Gastrointestinal: Denies: Diarrhea, Nausea, Vomiting Genitourinary: Denies: Dysuria, Hematuria Endocrine: Denies: Heat/ Cold Intolerance, Polydipsia, Polyuria Hematologic/ Lymphatic: Denies: Easy Bruising, Easy Bleeding - Physical Exam Vital Signs Temp Pulse Resp BP 96.8 F L 83 18 149/87 H 02/27/18 08:15 02/27/18 08:15 02/27/18 08:15 02/27/18 08:15 General: Alert, Oriented x3, Cooperative, No apparent distress, Well developed, Well nourished HEENT: Atraumatic, PERRLA, EOMI, Normocephalic Oral: Moist Mucosa Neck: No JVD Lungs: Normal air movement Abdomen: Non-Distended Extremities: No clubbing, No cyanosis, No edema, No Calf Tenderness, - - A right above-knee amputation stump as noted, which is well-healed. The ulceration in the right groin is little changed. There is no sign of infection or cellulitis. Dimensions are documented elsewhere. The base of the ulceration is generally pink and healthy in appearance. There is a mild amount of bioburden. Skin: No rashes Wound Measurements and Assessment WC - Nurse 1 - General Ulcer Measurement Start: 02/13/18 08:47 Freq: Status: Active Protocol: Activity Type Activity Date Activity User E-Sign Co-Sign Detail Recorded Client Recorded Date Recorded By Document 02/27/18 08:15 [id number] 02/27/18 08:18 TM 02/27/18 08:15 Wound Center Nurse 1 [Ulcer Assessment] #5 R Groin -Combined with other wound No -Current Size (cm) - Length 3.5 -Current Size (cm) - Width 1.0 -Current Size (cm) - Depth 0.4 -Total Square Cm 3.50 -Photo Taken No -Epithelialization None Present -Tunneling No -Undermining/Tunneling No -Circular Undermining No -Classification - Thickness Full Thickness without Exposed Support Structure -Exudate Amt Medium (34-66%) -Exudate Type Serous -Wound Margin Fibrotic Scar, Thickened Scar -Granulation Amt Medium (34-66%) -Granulation Quality Pale Purdy -Slough/Fibrin Yes -Necrosis Amt Medium (34-66%) -Necrotic Tissue Type Adherent Slough -Structure Exposed Fascia Fat Layer Exposed -Texture (Daniel-wound Skin Appearance) Assessed Scarring -Moisture (Daniel-wound Skin Appearance No Abnormality ) Assessed -Color (Daniel-wound Skin Appearance) No Abnormality Assessed -Temperature (Daniel-wound Skin No Abnormality Appearance) (Pt Warm) -Tenderness on Palpation (Daniel-wound No Skin Appearance) -Ulcer Cleansing Rinsed/ Irrigated with Saline -Foul Odor after Cleansing No -Anesthetic Used 5% Lidocaine Gel [Edema Assessment] -Lower Limb Edema Present No WC - Nurse 2 - General Ulcer CM Notes Start: 02/13/18 08:47 Freq: Status: Active Protocol: Activity Type Activity Date Activity User E-Sign Co-Sign Detail Recorded Client Recorded Date Recorded By Document 02/27/18 08:26 [email or web address] [id number] 02/27/18 08:33 [email or web address] 02/27/18 08:26 Wound Center Nurse 2 [Procedure/Treatment] #5 R Groin -Time 08:27 -Correct Patient Yes -Correct Side, Site, Position Yes -Correct Procedure Yes -Procedure Performed Yes -Type of Procedure Debridement -Clinical Debridement Subcutaneous -Post Debridement Size (cm) - Length 4.0 -Post Debridement Size (cm) - Width 1.2 -Post Debridement Size (cm) - Depth 0.3 -Total Square Cm 4.80 -Wound/Ulcer Outcome Not Healed -Ulcer Cleansing Rinsed/ Irrigated with Saline -Foul Odor after Cleansing No -Bioengineered Tissue No -Topical Lidocaine (%) 4 -Lidocaine (ml) 5 -Bleeding Controlled with NA -Treatment Response Procedure Tolerated Well [See Physician Procedure note for Specifics] Pain Scale: 0-10 Numeric [Pain] -Is Patient Pain Free? Yes Neurological: Cranial nerves II-XII grossly intact, Neuro grossly intact Psych/Mental Status: Normal Affect, Appropriate, Alert and oriented to time, place, person, mood and affect Debridement Note Post-Debridement Measurements/Treatment WC - Nurse 2 - General Ulcer CM Notes Start: 02/13/18 08:47 Freq: Status: Active Protocol: Activity Type Activity Date Activity User E-Sign Co-Sign Detail Recorded Client Recorded Date Recorded By Document 02/13/18 09:07 [id number] 02/13/18 09:09 JS Document 02/20/18 10:37 [id number] 02/20/18 10:44 JS Document 02/27/18 08:26 JS [id number] 02/27/18 08:33 JS 02/13/18 02/20/18 02/27/18 09:07 10:37 08:26 Wound Center Nurse 2 #5 R Groin -Time 09:07 10:37 08:27 -Correct Patient Yes Yes Yes -Correct Side, Site, Position Yes Yes Yes -Correct Procedure Yes Yes Yes -Procedure Performed Yes Yes Yes -Type of Procedure Debridement Debridement Debridement -Clinical Debridement Subcutaneous Subcutaneous Subcutaneous -Post Debridement Size (cm) - Length 3.4 3.3 4.0 -Post Debridement Size (cm) - Width 1.0 1.0 1.2 -Post Debridement Size (cm) - Depth 0.2 0.3 0.3 -Total Square Cm 3.40 3.30 4.80 -Wound/Ulcer Outcome Not Healed Not Healed Not Healed -Ulcer Cleansing Rinsed/ Rinsed/ Rinsed/ Irrigated with Irrigated with Irrigated with Saline Saline Saline -Foul Odor after Cleansing No No No -Bioengineered Tissue Yes No No -Type of bioengineered Tissue EPIFIX -Expiration Date 11/07/22 -Product Lot Number [id number] -Percent Used 100 -Saline Lot Number N/A -Topical Lidocaine (%) 4 4 -Lidocaine (ml) 5 5 -Bleeding Controlled with NA NA NA -Treatment Response Procedure Procedure Procedure Tolerated Well Tolerated Well Tolerated Well Pain Scale: 0-10 Numeric Is Patient Pain Free? 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 In the 1970's, she was diagnosed with malignant melanoma of the right calf, with metastasis to lymph nodes in the right groin. She underwent excision of the melanoma with right groin lymphadenectomy. She was subsequently treated with a long series of radiation treatments to the right groin. During the days of her radiation treatment, it is suspected that the radiation techniques were somewhat early in their evolution, and quite likely that the patient received massive doses of radiation exposure, exceeding doses which would be considered appropriate today, with techniques which are primitive by today's standards. As result, the patient has developed soft tissue radiation injury, and has previously been treated at our wound center in the past with a series of approximately 90 hyperbaric oxygen therapy treatments, in 2012. She presented with recurrence of soft tissue radionecrosis in the right groin. Hyperbaric oxygen therapy treatments have been initiated, and the patient has undergone a series of nearly 90 hyperbaric oxygen treatment sessions. She has shown benefit from the hyperbaric oxygen treatments, which were felt to be clinically warranted, and in accordance with the patient's past history, in which wound healing was effected only after 90 such sessions. She has tolerated hyperbaric oxygen therapy well, without complaints or complications. She has completed her nearly 90 sessions of hyperbaric oxygen treatments. At this time, there is no clinical evidence of infection or cellulitis in the daniel-ulcer area. Clearly, the patient is responding very slowly to the variety of conventional treatment measures which have been implemented. However, in review of the patient's past history, such has been the case previously, as each treatment course has been rather protracted and lengthy in nature to achieve ultimate healing. Plan: The patient has been the recipient of 5 EpiFix applications. Additional allograft applications are felt to be warranted, but have been denied by the patient's insurance. We are seeking preauthorization for additional allograft applications. At this juncture, we will continue the use of Mary topically, which will be changed every second or third day by the patient. She will return in 1 week for reassessment. The patient is to continue with a nutritious diet. Because of the slow response and healing, the patient's right groin ulceration has once again been cultured. Culture results will be awaited. Additionally, consideration may be given in the future to biopsy of the ulcer and ulcer margins, given the patient's history of intense radiation to this area, and her lack of progress of healing. Influenza vaccine was not administered today. The patient is not a smoker. She stands 5 feet 7 inches tall. She weighs 198 pounds. Her BMI is 31, which places her in a class I weight category. Weight loss has been recommended. She is to collaborate with her primary care physician in this regard.
[2018-03-06 08:56] VITALS: BP 145/93; PULSE 81; RESP 16; TEMP 35.7; BMI 68.3
--- NOTE | 2018-03-06 09:21 | PCM.WC.HP ---
(1) History of uterine cancer Status: Chronic Current Visit: No Code(s): Z85.42 - Personal history of malignant neoplasm of other parts of uterus (2) History of melanoma Status: Chronic Current Visit: Yes Code(s): Z85.820 - Personal history of malignant melanoma of skin (3) Hyperlipidemia Status: Chronic Current Visit: No Code(s): E78.5 - Hyperlipidemia, unspecified (4) GERD (gastroesophageal reflux disease) Status: Chronic Current Visit: No Code(s): K21.9 - Gastro-esophageal reflux disease without esophagitis (5) Ulcer of right groin Status: Chronic Current Visit: Yes Qualifiers: Non-pressure ulcer stage: with fat layer exposed Code(s): L98.499 - Non-pressure chronic ulcer of skin of other sites with unspecified severity (6) Obesity (BMI 30.0-34.9) Status: Chronic Current Visit: No Code(s): E66.9 - Obesity, unspecified (7) Amputee, above knee Status: Chronic Current Visit: No Qualifiers: Code(s): Z89.619 - Acquired absence of unspecified leg above knee (8) Soft tissue radionecrosis Status: Chronic Current Visit: Yes Code(s): L59.8 - Other specified disorders of the skin and subcutaneous tissue related to radiation; Y84.2 - Radiological procedure and radiotherapy as the cause of abnormal reaction of the patient, or of later complication, without mention of misadventure at the time of the procedure (9) soft tissue radiation injury Status: Chronic Current Visit: Yes History of Present Illness Date of Service: 03/06/18 Chief Complaint: 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 The patient underwent excision of her melanoma with lymphadenectomy in the right groin. [place] also [place] [facility] [place] Melanoma recurred, and the patient was subsequently treated with monoclonal antibodies in 1984. 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 Treatment included local ulcer care and hyperbaric oxygen therapy. She underwent a total of nearly 90 treatments of hyperbaric oxygen therapy. It is known that she tolerated the therapies well, and derived significant benefit. She relates no history of claustrophobia, or other complications related to the hyperbaric oxygen therapy treatments. She has no history of barotrauma to lungs, ears, etc. Her medical history has been reviewed, without any evidence of contraindications to hyperbaric oxygen therapy. Hyperbaric oxygen therapy has been administered for nearly 90 treatment sessions. We are currently using EpiFix allograft, and she has undergone 4 applications thus far. The patient's history suggests that the right groin wound in the past responded to hyperbaric oxygen therapy, but required 90 such sessions. It appears as though the patient's current clinical course is mimicking that of the past, with wound healing which is very recalcitrant to conventional treatment measures. 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 She is undergone excision of melanoma from the right calf, with lymphadenectomy of the right groin in the 1969's. She subsequently required surgeries of the right thigh related to osteomyelitis, MRSA infection, and radiation injury to the right femoral artery. Ultimately, the patient required right above-knee amputation, performed in 2000. She also has a remote history of open reduction and internal fixation of a right ankle fracture. Allergies/Adverse Reactions: Allergies No Known Allergies Allergy (Verified 06/20/17 09:22) Home Medications: Ambulatory Orders Medication Instructions Recorded Famotidine 20 mg PO 06/20/17 Pravastatin [Pravachol] 20 mg PO DAILY 06/20/17 - Family History Maternal - - The patient's mother is 98 years of age and relatively healthy. The patient's father at age of 79 with a history of cardiomyopathy. Smoking Status: Former smoker Tobacco Use: Non-smoker Review of Systems Constitutional: Denies: Chills, Fever, Weight Change Eyes: Denies: Pain, Vision Change HEENT: Denies: Difficulty Hearing, Difficulty Swallowing, Sinus Congestion Cardiovascular: Denies: Chest Pain, Palpitations Respiratory: Denies: Cough, Shortness of Breath Gastrointestinal: Denies: Diarrhea, Nausea, Vomiting Genitourinary: Denies: Dysuria, Hematuria Endocrine: Denies: Heat/ Cold Intolerance, Polydipsia, Polyuria Hematologic/ Lymphatic: Denies: Easy Bruising, Easy Bleeding - Physical Exam Vital Signs Temp Pulse Resp BP 96.2 F L 81 16 145/93 H 03/06/18 08:56 03/06/18 08:56 03/06/18 08:56 03/06/18 08:56 General: Alert, Oriented x3, Cooperative, No apparent distress, Well developed, Well nourished HEENT: Atraumatic, PERRLA, EOMI, Normocephalic Oral: Moist Mucosa Neck: No JVD Lungs: Normal air movement Abdomen: Non-Distended Extremities: No clubbing, No cyanosis, No edema, No Calf Tenderness, - - A well-healed right above-knee amputation stump is noted. The patient's ulceration in the right groin is little changed in size or appearance. It is generally pink and healthy in appearance, with evidence of active granulation tissue. There is a moderate amount of bioburden. Dimensions are documented elsewhere. There is no obvious sign of infection or cellulitis. Skin: No rashes Wound Measurements and Assessment WC - Nurse 1 - General Ulcer Measurement Start: 02/13/18 08:47 Freq: Status: Active Protocol: Activity Type Activity Date Activity User E-Sign Co-Sign Detail Recorded Client Recorded Date Recorded By Document 03/06/18 08:56 [id number] 03/06/18 08:59 03/06/18 08:56 Wound Center Nurse 1 [Ulcer Assessment] #5 R Groin -Combined with other wound No -Current Size (cm) - Length 3.4 -Current Size (cm) - Width 0.4 -Current Size (cm) - Depth 0.3 -Total Square Cm 1.36 -Photo Taken No -Epithelialization None Present -Tunneling No -Exudate Amt Medium (34-66%) -Exudate Type Serosanguineous -Wound Margin Distinct, Outline Attached -Granulation Amt Medium (34-66%) -Granulation Quality Pale [place] -Slough/Fibrin Yes -Necrosis Amt None Present (0 %) -Necrotic Tissue Type Adherent Slough -Structure Exposed None/Limited to Skin Breakdown -Texture (Daniel-wound Skin Appearance) No Abnormality Assessed -Moisture (Daniel-wound Skin Appearance No Abnormality ) Assessed -Color (Daniel-wound Skin Appearance) No Abnormality Assessed -Temperature (Daniel-wound Skin No Abnormality Appearance) (Pt Warm) -Tenderness on Palpation (Daniel-wound No Skin Appearance) -Ulcer Cleansing Rinsed/ Irrigated with Saline -Foul Odor after Cleansing No -Anesthetic Used 4% Lidocaine Solution [Edema Assessment] -Lower Limb Edema Present NA - Nurse 2 - General Ulcer CM Notes Start: 02/13/18 08:47 Freq: Status: Active Protocol: Activity Type Activity Date Activity User E-Sign Co-Sign Detail Recorded Client Recorded Date Recorded By Document 03/06/18 09:06 KEILA [id number] 03/06/18 09:17 KEILA 03/06/18 09:06 Wound Center Nurse 2 [Procedure/Treatment] #5 R Groin -Time 09:06 -Correct Patient Yes -Correct Side, Site, Position Yes -Correct Procedure Yes -Procedure Performed Yes -Type of Procedure Debridement -Clinical Debridement Subcutaneous -Post Debridement Size (cm) - Length 3.4 -Post Debridement Size (cm) - Width 1.0 -Post Debridement Size (cm) - Depth 0.3 -Total Square Cm 3.40 -Wound/Ulcer Outcome Not Healed -Ulcer Cleansing Rinsed/ Irrigated with Saline -Foul Odor after Cleansing No -Bioengineered Tissue No -Bleeding Controlled with NA -Treatment Response Procedure Tolerated Well [See Physician Procedure note for Specifics] Pain Scale: 0-10 Numeric [Pain] -Is Patient Pain Free? Yes Neurological: Cranial nerves II-XII grossly intact, Neuro grossly intact Psych/Mental Status: Normal Affect, Appropriate, Alert and oriented to time, place, person, mood and affect Debridement Note Post-Debridement Measurements/Treatment - Nurse 2 - General Ulcer CM Notes Start: 02/13/18 08:47 Freq: Status: Active Protocol: Activity Type Activity Date Activity User E-Sign Co-Sign Detail Recorded Client Recorded Date Recorded By Document 02/13/18 09:07 KEILA [id number] 02/13/18 09:09 JS Document 02/20/18 10:37 JS [id number] 02/20/18 10:44 JS Document 02/27/18 08:26 JS [id number] 02/27/18 08:33 JS Document 03/06/18 09:06 JS [id number] 03/06/18 09:17 JS 02/13/18 02/20/18 02/27/18 09:07 10:37 08:26 Wound Center Nurse 2 #5 R Groin -Time 09:07 10:37 08:27 -Correct Patient Yes Yes Yes -Correct Side, Site, Position Yes Yes Yes -Correct Procedure Yes Yes Yes -Procedure Performed Yes Yes Yes -Type of Procedure Debridement Debridement Debridement -Clinical Debridement Subcutaneous Subcutaneous Subcutaneous -Post Debridement Size (cm) - Length 3.4 3.3 4.0 -Post Debridement Size (cm) - Width 1.0 1.0 1.2 -Post Debridement Size (cm) - Depth 0.2 0.3 0.3 -Total Square Cm 3.40 3.30 4.80 -Wound/Ulcer Outcome Not Healed Not Healed Not Healed -Ulcer Cleansing Rinsed/ Rinsed/ Rinsed/ Irrigated with Irrigated with Irrigated with Saline Saline Saline -Foul Odor after Cleansing No No No -Bioengineered Tissue Yes No No -Type of bioengineered Tissue EPIFIX -Expiration Date 11/07/22 -Product Lot Number [id number] -Percent Used 100 -Saline Lot Number N/A -Topical Lidocaine (%) 4 4 -Lidocaine (ml) 5 5 -Bleeding Controlled with NA NA NA -Treatment Response Procedure Procedure Procedure Tolerated Well Tolerated Well Tolerated Well Pain Scale: 0-10 Numeric Is Patient Pain Free? Yes Yes Yes 03/06/18 09:06 Wound Center Nurse 2 #5 R Groin -Time 09:06 -Correct Patient Yes -Correct Side, Site, Position Yes -Correct Procedure Yes -Procedure Performed Yes -Type of Procedure Debridement -Clinical Debridement Subcutaneous -Post Debridement Size (cm) - Length 3.4 -Post Debridement Size (cm) - Width 1.0 -Post Debridement Size (cm) - Depth 0.3 -Total Square Cm 3.40 -Wound/Ulcer Outcome Not Healed -Ulcer Cleansing Rinsed/ Irrigated with Saline -Foul Odor after Cleansing No -Bioengineered Tissue No -Type of bioengineered Tissue -Expiration Date -Product Lot Number -Percent Used -Saline Lot Number -Topical Lidocaine (%) -Lidocaine (ml) -Bleeding Controlled with NA -Treatment Response Procedure Tolerated Well Pain Scale: 0-10 Numeric Is Patient Pain Free? 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 In the 1970's, she was diagnosed with malignant melanoma of the right calf, with metastasis to lymph nodes in the right groin. She underwent excision of the melanoma with right groin lymphadenectomy. She was subsequently treated with a long series of radiation treatments to the right groin. During the days of her radiation treatment, it is suspected that the radiation techniques were somewhat early in their evolution, and quite likely that the patient received massive doses of radiation exposure, exceeding doses which would be considered appropriate today, with techniques which are primitive by today's standards. As result, the patient has developed soft tissue radiation injury, and has previously been treated at our wound center in the past with a series of approximately 90 hyperbaric oxygen therapy treatments, in 2011. She presented with recurrence of soft tissue radionecrosis in the right groin. Hyperbaric oxygen therapy treatments have been initiated, and the patient has undergone a series of nearly 90 hyperbaric oxygen treatment sessions. She has shown benefit from the hyperbaric oxygen treatments, which were felt to be clinically warranted, and in accordance with the patient's past history, in which wound healing was effected only after 90 such sessions. She has tolerated hyperbaric oxygen therapy well, without complaints or complications. She has completed her nearly 90 sessions of hyperbaric oxygen treatments. At this time, there is no clinical evidence of infection or cellulitis in the daniel-ulcer area. Clearly, the patient is responding very slowly to the variety of conventional treatment measures which have been implemented. However, in review of the patient's past history, such has been the case previously, as each treatment course has been rather protracted and lengthy in nature to achieve ultimate healing. Plan: The patient has been the recipient of 5 EpiFix applications. Additional allograft applications are felt to be warranted, and recent approval from her insurance company has been granted. Ever, recent cultures have been positive for Staphylococcus aureus and Corynebacterium stratum. We are to initiate oral antibiotic therapy using Duricef 1 g p.o. twice daily for approximately 10 days. Patient will return in 1 week for reassessment. Ultimately, we will resume allograft applications. At this juncture, we will continue the use of Mary topically, which will be changed every second or third day by the patient. She will return in 1 week for reassessment. The patient is to continue with a nutritious diet. Additionally, consideration may be given in the future to biopsy of the ulcer and ulcer margins, given the patient's history of intense radiation to this area, and her lack of progress of healing. Influenza vaccine was not administered today. The patient is not a smoker. She stands 5 feet 7 inches tall. She weighs 198 pounds. Her BMI is 31, which places her in a class I weight category. Weight loss has been recommended. She is to collaborate with her primary care physician in this regard.
== END 2018-03-09 23:59 ==
LOC: WC 08:30
PROVIDERS: Family Provider Family Medicine; PCP Family Medicine; Visit Provider Surgery
DX: L59.8 Other specified disorders of the skin and subcutaneous tissue related to radiation (principal); Y84.2 Radiological procedure and radiotherapy as the cause of abnormal reaction of the patient, or of later complication, without mention of misadventure at the time of the procedure; K21.9 Gastro-esophageal reflux disease without esophagitis; E66.9 Obesity, unspecified; Z68.31 Body mass index [BMI] 31.0-31.9, adult; Z71.3 Dietary counseling and surveillance; Z85.42 Personal history of malignant neoplasm of other parts of uterus; Z85.820 Personal history of malignant melanoma of skin; E78.5 Hyperlipidemia, unspecified; Z86.14 Personal history of Methicillin resistant Staphylococcus aureus infection; Z89.611 Acquired absence of right leg above knee; Z87.891 Personal history of nicotine dependence; L98.492 Non-pressure chronic ulcer of skin of other sites with fat layer exposed
CPT/HCPCS: 11042; 15271; 87070; 87075; 87077; 87186; 87205; Q4131

== ENCOUNTER 2018-04-03 08:45 | Outpatient (RCR) | payer OTHER, SELFPAY ==
[2018-03-10 00:47] VITALS: BP 145/93; PULSE 81; RESP 16; TEMP 35.7; BMI 68.3
[2018-03-13 08:49] VITALS: BP 146/96; PULSE 87; RESP 16; TEMP 35.6; BMI 68.3
--- NOTE | 2018-03-13 09:14 | PCM.WC.HP ---
(1) History of uterine cancer Status: Chronic Current Visit: No Code(s): Z85.42 - Personal history of malignant neoplasm of other parts of uterus (2) History of melanoma Status: Chronic Current Visit: Yes Code(s): Z85.820 - Personal history of malignant melanoma of skin (3) Hyperlipidemia Status: Chronic Current Visit: No Code(s): E78.5 - Hyperlipidemia, unspecified (4) GERD (gastroesophageal reflux disease) Status: Chronic Current Visit: No Code(s): K21.9 - Gastro-esophageal reflux disease without esophagitis (5) Ulcer of right groin Status: Chronic Current Visit: Yes Qualifiers: Non-pressure ulcer stage: with fat layer exposed Code(s): L98.499 - Non-pressure chronic ulcer of skin of other sites with unspecified severity (6) Obesity (BMI 30.0-34.9) Status: Chronic Current Visit: No Code(s): E66.9 - Obesity, unspecified (7) Amputee, above knee Status: Chronic Current Visit: Yes Qualifiers: Laterality: right Code(s): Z89.619 - Acquired absence of unspecified leg above knee (8) Soft tissue radionecrosis Status: Chronic Current Visit: Yes Code(s): L59.8 - Other specified disorders of the skin and subcutaneous tissue related to radiation; Y84.2 - Radiological procedure and radiotherapy as the cause of abnormal reaction of the patient, or of later complication, without mention of misadventure at the time of the procedure (9) soft tissue radiation injury Status: Chronic Current Visit: Yes History of Present Illness Date of Service: 03/13/18 Chief Complaint: 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 The patient underwent excision of her melanoma with lymphadenectomy in the right groin. She also underwent lengthy radiation treatments at the [facility] in [place], [place]. Melanoma recurred, and the patient was subsequently treated with monoclonal antibodies in 1984. 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 Treatment included local ulcer care and hyperbaric oxygen therapy. She underwent a total of nearly 90 treatments of hyperbaric oxygen therapy. It is known that she tolerated the therapies well, and derived significant benefit. She relates no history of claustrophobia, or other complications related to the hyperbaric oxygen therapy treatments. She has no history of barotrauma to lungs, ears, etc. Her medical history has been reviewed, without any evidence of contraindications to hyperbaric oxygen therapy. Hyperbaric oxygen therapy has been administered for nearly 90 treatment sessions. We are currently using EpiFix allografts, and she has undergone 5 applications thus far. The patient's history suggests that the right groin wound in the past responded to hyperbaric oxygen therapy, but required 90 such sessions. It appears as though the patient's current clinical course is mimicking that of the past, with wound healing which is very recalcitrant to conventional treatment measures. 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 She is undergone excision of melanoma from the right calf, with lymphadenectomy of the right groin in the 1969's. She subsequently required surgeries of the right thigh related to osteomyelitis, MRSA infection, and radiation injury to the right femoral artery. Ultimately, the patient required right above-knee amputation, performed in 2000. She also has a remote history of open reduction and internal fixation of a right ankle fracture. Allergies/Adverse Reactions: Allergies No Known Allergies Allergy (Verified 06/20/17 09:22) Home Medications: Ambulatory Orders Medication Instructions Recorded Famotidine 20 mg PO 06/20/17 Pravastatin [Pravachol] 20 mg PO DAILY 06/20/17 - Family History Maternal - - The patient's mother is 98 years of age and relatively healthy. The patient's father at age of 79 with a history of cardiomyopathy. Smoking Status: Former smoker Tobacco Use: Non-smoker Review of Systems Constitutional: Denies: Chills, Fever, Weight Change Eyes: Denies: Pain, Vision Change HEENT: Denies: Difficulty Hearing, Difficulty Swallowing, Sinus Congestion Cardiovascular: Denies: Chest Pain, Palpitations Respiratory: Denies: Cough, Shortness of Breath Gastrointestinal: Denies: Diarrhea, Nausea, Vomiting Genitourinary: Denies: Dysuria, Hematuria Endocrine: Denies: Heat/ Cold Intolerance, Polydipsia, Polyuria Hematologic/ Lymphatic: Denies: Easy Bruising, Easy Bleeding - Physical Exam Vital Signs Temp Pulse Resp BP 96.1 F L 87 16 146/96 H 03/13/18 08:49 03/13/18 08:49 03/13/18 08:49 03/13/18 08:49 General: Alert, Oriented x3, Cooperative, No apparent distress, Well developed, Well nourished HEENT: Atraumatic, PERRLA, EOMI, Normocephalic Oral: Moist Mucosa Neck: No JVD Lungs: Normal air movement Abdomen: Non-Distended Extremities: No clubbing, No cyanosis, No edema, No Calf Tenderness, - - Well-healed right above-knee amputation stump is noted. The ulceration in the right groin appears improved. It is slightly smaller in size. The base of the ulceration is generally pink and healthy in appearance. There is only a mild amount of bioburden. There is no sign of infection or cellulitis. Dimensions are documented elsewhere. Skin: No rashes Wound Measurements and Assessment WC - Nurse 1 - General Ulcer Measurement Start: 03/13/18 08:45 Freq: Status: Active Protocol: Activity Type Activity Date Activity User E-Sign Co-Sign Detail Recorded Client Recorded Date Recorded By Document 03/13/18 08:49 [id number] 03/13/18 08:53 03/13/18 08:49 Wound Center Nurse 1 [Ulcer Assessment] #5 R Groin -Combined with other wound No -Current Size (cm) - Length 3.2 -Current Size (cm) - Width 0.8 -Current Size (cm) - Depth 0.3 -Total Square Cm 2.56 -Photo Taken Yes -Epithelialization None Present -Tunneling No -Undermining/Tunneling No -Circular Undermining No -Exudate Amt Small (1-33%) -Exudate Type Serosanguineous -Wound Margin Distinct, Outline Attached -Temperature (Daniel-wound Skin No Abnormality Appearance) (Pt Warm) -Tenderness on Palpation (Daniel-wound No Skin Appearance) -Ulcer Cleansing Rinsed/ Irrigated with Saline -Foul Odor after Cleansing No -Anesthetic Used 4% Lidocaine Solution [Edema Assessment] -Lower Limb Edema Present NA - Nurse 2 - General Ulcer CM Notes Start: 03/13/18 08:45 Freq: Status: Active Protocol: Activity Type Activity Date Activity User E-Sign Co-Sign Detail Recorded Client Recorded Date Recorded By Document 03/13/18 09:08 [email or web address] [id number] 03/13/18 09:13 JS 03/13/18 09:08 Wound Center Nurse 2 [Procedure/Treatment] #5 R Groin -Time 09:08 -Correct Patient Yes -Correct Side, Site, Position Yes -Correct Procedure Yes -Procedure Performed Yes -Type of Procedure Debridement -Clinical Debridement Subcutaneous -Post Debridement Size (cm) - Length 3.4 -Post Debridement Size (cm) - Width 0.9 -Post Debridement Size (cm) - Depth 0.3 -Total Square Cm 3.06 -Wound/Ulcer Outcome Not Healed -Ulcer Cleansing Rinsed/ Irrigated with Saline -Foul Odor after Cleansing No -Bioengineered Tissue No -Bleeding Controlled with NA -Treatment Response Procedure Tolerated Well [See Physician Procedure note for Specifics] Pain Scale: 0-10 Numeric [Pain] -Is Patient Pain Free? Yes Musculoskeletal: No Muscle Wasting Neurological: Cranial nerves II-XII grossly intact, Neuro grossly intact Psych/Mental Status: Normal Affect, Appropriate, Alert and oriented to time, place, person, mood and affect Debridement Note Post-Debridement Measurements/Treatment - Nurse 2 - General Ulcer CM Notes Start: 03/13/18 08:45 Freq: Status: Active Protocol: Activity Type Activity Date Activity User E-Sign Co-Sign Detail Recorded Client Recorded Date Recorded By Document 03/13/18 09:08 [email or web address] [id number] 03/13/18 09:13 JS 03/13/18 09:08 Wound Center Nurse 2 #5 R Groin -Time 09:08 -Correct Patient Yes -Correct Side, Site, Position Yes -Correct Procedure Yes -Procedure Performed Yes -Type of Procedure Debridement -Clinical Debridement Subcutaneous -Post Debridement Size (cm) - Length 3.4 -Post Debridement Size (cm) - Width 0.9 -Post Debridement Size (cm) - Depth 0.3 -Total Square Cm 3.06 -Wound/Ulcer Outcome Not Healed -Ulcer Cleansing Rinsed/ Irrigated with Saline -Foul Odor after Cleansing No -Bioengineered Tissue No -Bleeding Controlled with NA -Treatment Response Procedure Tolerated Well Pain Scale: 0-10 Numeric Is Patient Pain Free? Yes Laterality: Right - Groin Type of Debridement: Excisional debridement Anesthesia Used: 4% Lidocaine Solution Depth: Down to and including healthy tissue, in the subcutaneous layer Percentage of wound debrided: 100 Instrument Used: 5mm curette Severity: Fat Layer Exposed Amount of bleeding with debridement: Mild Bleeding Controlled with: Compression and gauze Patient tolerated procedure well Assessment/Plan Active Problems History of melanoma (Chronic) Ulcer of right groin (Chronic) Amputee, 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 In the 1970's, she was diagnosed with malignant melanoma of the right calf, with metastasis to lymph nodes in the right groin. She underwent excision of the melanoma with right groin lymphadenectomy. She was subsequently treated with a long series of radiation treatments to the right groin. During the days of her radiation treatment, it is suspected that the radiation techniques were somewhat early in their evolution, and quite likely that the patient received massive doses of radiation exposure, exceeding doses which would be considered appropriate today, with techniques which are primitive by today's standards. As result, the patient has developed soft tissue radiation injury, and has previously been treated at our wound center in the past with a series of approximately 90 hyperbaric oxygen therapy treatments, in 2011. She presented with recurrence of soft tissue radionecrosis in the right groin. Hyperbaric oxygen therapy treatments have been initiated, and the patient has undergone a series of nearly 90 hyperbaric oxygen treatment sessions. She has shown benefit from the hyperbaric oxygen treatments, which were felt to be clinically warranted, and in accordance with the patient's past history, in which wound healing was effected only after 90 such sessions. She has tolerated hyperbaric oxygen therapy well, without complaints or complications. She has completed her nearly 90 sessions of hyperbaric oxygen treatments. At this time, there is no clinical evidence of infection or cellulitis in the daniel-ulcer area. Clearly, the patient is responding very slowly to the variety of conventional treatment measures which have been implemented. However, in review of the patient's past history, such has been the case previously, as each treatment course has been rather protracted and lengthy in nature to achieve ultimate healing. Plan: The patient has been the recipient of 5 EpiFix applications. 5 additional applications have been approved by the patient's insurance. Additional allograft applications are felt to be warranted, and recent approval from her insurance company has been granted. Recent cultures have been positive for Staphylococcus aureus and Corynebacterium stratum. We are to initiate oral antibiotic therapy using Duricef 1 g p.o. twice daily for approximately 10 days, the patient is in the midst of her course of Duricef. Patient will return in 1 week for reassessment. Ultimately, we will resume allograft applications, probably next week. At this juncture, we will continue the use of Mary topically, which will be changed every second or third day by the patient. She will return in 1 week for reassessment. The patient is to continue with a nutritious diet. Additionally, consideration may be given in the future to biopsy of the ulcer and ulcer margins, given the patient's history of intense radiation to this area, and her lack of progress of healing. Influenza vaccine was not administered today. The patient is not a smoker. She stands 5 feet 7 inches tall. She weighs 198 pounds. Her BMI is 31, which places her in a class I weight category. Weight loss has been recommended. She is to collaborate with her primary care physician in this regard.
[2018-03-20 09:20] VITALS: BP 139/81; PULSE 81; RESP 18; TEMP 36.3; BMI 68.3
--- NOTE | 2018-03-20 11:04 | PCM.WC.HP ---
(1) History of uterine cancer Status: Chronic Current Visit: No Code(s): Z85.42 - Personal history of malignant neoplasm of other parts of uterus (2) History of melanoma Status: Chronic Current Visit: Yes Code(s): Z85.820 - Personal history of malignant melanoma of skin (3) Hyperlipidemia Status: Chronic Current Visit: No Code(s): E78.5 - Hyperlipidemia, unspecified (4) GERD (gastroesophageal reflux disease) Status: Chronic Current Visit: No Code(s): K21.9 - Gastro-esophageal reflux disease without esophagitis (5) Ulcer of right groin Status: Chronic Current Visit: Yes Qualifiers: Non-pressure ulcer stage: with fat layer exposed Code(s): L98.499 - Non-pressure chronic ulcer of skin of other sites with unspecified severity (6) Obesity (BMI 30.0-34.9) Status: Chronic Current Visit: No Code(s): E66.9 - Obesity, unspecified (7) Amputee, above knee Status: Chronic Current Visit: Yes Qualifiers: Laterality: right Code(s): Z89.619 - Acquired absence of unspecified leg above knee (8) Soft tissue radionecrosis Status: Chronic Current Visit: Yes Code(s): L59.8 - Other specified disorders of the skin and subcutaneous tissue related to radiation; Y84.2 - Radiological procedure and radiotherapy as the cause of abnormal reaction of the patient, or of later complication, without mention of misadventure at the time of the procedure (9) soft tissue radiation injury Status: Chronic Current Visit: Yes History of Present Illness Date of Service: 03/20/18 Chief Complaint: 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 The patient underwent excision of her melanoma with lymphadenectomy in the right groin. She also underwent lengthy radiation treatments at the [facility] in [place], [place]. Melanoma recurred, and the patient was subsequently treated with monoclonal antibodies in 1984. 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 Treatment included local ulcer care and hyperbaric oxygen therapy. She underwent a total of nearly 90 treatments of hyperbaric oxygen therapy. It is known that she tolerated the therapies well, and derived significant benefit. She relates no history of claustrophobia, or other complications related to the hyperbaric oxygen therapy treatments. She has no history of barotrauma to lungs, ears, etc. Her medical history has been reviewed, without any evidence of contraindications to hyperbaric oxygen therapy. Hyperbaric oxygen therapy has been administered for nearly 90 treatment sessions. We are currently using EpiFix allografts, and she has undergone 5 applications thus far. The patient's history suggests that the right groin wound in the past responded to hyperbaric oxygen therapy, but required 90 such sessions. It appears as though the patient's current clinical course is mimicking that of the past, with wound healing which is very recalcitrant to conventional treatment measures. 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 She is undergone excision of melanoma from the right calf, with lymphadenectomy of the right groin in the 1969's. She subsequently required surgeries of the right thigh related to osteomyelitis, MRSA infection, and radiation injury to the right femoral artery. Ultimately, the patient required right above-knee amputation, performed in 2000. She also has a remote history of open reduction and internal fixation of a right ankle fracture. Allergies/Adverse Reactions: Allergies No Known Allergies Allergy (Verified 06/20/17 09:22) Home Medications: Ambulatory Orders Medication Instructions Recorded Famotidine 20 mg PO 06/20/17 Pravastatin [Pravachol] 20 mg PO DAILY 06/20/17 - Family History Maternal - - The patient's mother is 98 years of age and relatively healthy. The patient's father at age of 79 with a history of cardiomyopathy. Smoking Status: Former smoker Tobacco Use: Non-smoker Review of Systems Constitutional: Denies: Chills, Fever, Weight Change Eyes: Denies: Pain, Vision Change HEENT: Denies: Difficulty Hearing, Difficulty Swallowing, Sinus Congestion Cardiovascular: Denies: Chest Pain, Palpitations Respiratory: Denies: Cough, Shortness of Breath Gastrointestinal: Denies: Diarrhea, Nausea, Vomiting Genitourinary: Denies: Dysuria, Hematuria Endocrine: Denies: Heat/ Cold Intolerance, Polydipsia, Polyuria Hematologic/ Lymphatic: Denies: Easy Bruising, Easy Bleeding - Physical Exam Vital Signs Temp Pulse Resp BP 97.4 F L 81 18 139/81 H 03/20/18 09:20 03/20/18 09:20 03/20/18 09:20 03/20/18 09:20 General: Alert, Oriented x3, Cooperative, No apparent distress, Well developed, Well nourished HEENT: Atraumatic, PERRLA, EOMI, Normocephalic Oral: Moist Mucosa Neck: No JVD Lungs: Normal air movement Abdomen: Non-Distended Extremities: No clubbing, No cyanosis, No edema, No Calf Tenderness, - - A well-healed above-knee amputation stump is noted on the right. The ulceration in the right groin is smaller in size. Dimensions are documented elsewhere. At this time, there is no sign of infection or cellulitis. There is a small amount of bioburden. Wound Measurements and Assessment WC - Nurse 1 - General Ulcer Measurement Start: 03/13/18 08:45 Freq: Status: Active Protocol: Activity Type Activity Date Activity User E-Sign Co-Sign Detail Recorded Client Recorded Date Recorded By Document 03/20/18 09:20 DL [id number] 03/20/18 09:26 DL 03/20/18 09:20 Wound Center Nurse 1 [Ulcer Assessment] #5 R Groin -Current Size (cm) - Length 3.1 -Current Size (cm) - Width 0.8 -Current Size (cm) - Depth 0.4 -Total Square Cm 2.48 -Photo Taken No -Exudate Amt Small (1-33%) -Exudate Type Serosanguineous -Wound Margin Thickened -Granulation Amt Medium (34-66%) -Granulation Quality [place] -Necrosis Amt Medium (34-66%) -Necrotic Tissue Type Adherent Slough -Structure Exposed N/A -Texture (Daniel-wound Skin Appearance) Scarring -Moisture (Daniel-wound Skin Appearance Maceration ) -Color (Daniel-wound Skin Appearance) Rubor -Temperature (Daniel-wound Skin No Abnormality Appearance) (Pt Warm) -Tenderness on Palpation (Daniel-wound No Skin Appearance) -Ulcer Cleansing Rinsed/ Irrigated with Saline -Foul Odor after Cleansing No -Anesthetic Used 4% Lidocaine Solution - Nurse 2 - General Ulcer CM Notes Start: 03/13/18 08:45 Freq: Status: Active Protocol: Activity Type Activity Date Activity User E-Sign Co-Sign Detail Recorded Client Recorded Date Recorded By Document 03/20/18 10:38 [id number] 03/20/18 10:46 JS 03/20/18 10:38 Wound Center Nurse 2 [Procedure/Treatment] -Time 10:43 -Correct Patient Yes -Correct Side, Site, Position Yes -Correct Procedure Yes -Procedure Performed Yes -Type of Procedure Debridement -Clinical Debridement Subcutaneous -Post Debridement Size (cm) - Length 3.2 -Post Debridement Size (cm) - Width 0.9 -Post Debridement Size (cm) - Depth 0.2 -Total Square Cm 2.88 -Wound/Ulcer Outcome Not Healed -Ulcer Cleansing Rinsed/ Irrigated with Saline -Foul Odor after Cleansing No -Bioengineered Tissue Yes -Type of bioengineered Tissue EPIFIX -Expiration Date 12/08/22 -Product Lot Number [id number] -Percent Used 100 -Saline Lot Number N/A -Topical Lidocaine (%) 4 -Bleeding Controlled with NA -Treatment Response Procedure Tolerated Well [See Physician Procedure note for Specifics] Pain Scale: 0-10 Numeric [Pain] -Is Patient Pain Free? Yes Musculoskeletal: No Muscle Wasting Neurological: Cranial nerves II-XII grossly intact, Neuro grossly intact Psych/Mental Status: Normal Affect, Appropriate, Alert and oriented to time, place, person, mood and affect Debridement Note Post-Debridement Measurements/Treatment - Nurse 2 - General Ulcer CM Notes Start: 03/13/18 08:45 Freq: Status: Active Protocol: Activity Type Activity Date Activity User E-Sign Co-Sign Detail Recorded Client Recorded Date Recorded By Document 03/13/18 09:08 [id number] 03/13/18 09:13 JS Document 03/20/18 10:38 [email or web address] 03/20/18 10:46 JS 03/13/18 03/20/18 09:08 10:38 Wound Center Nurse 2 #5 R Groin -Time 09:08 10:43 -Correct Patient Yes Yes -Correct Side, Site, Position Yes Yes -Correct Procedure Yes Yes -Procedure Performed Yes Yes -Type of Procedure Debridement Debridement -Clinical Debridement Subcutaneous Subcutaneous -Post Debridement Size (cm) - Length 3.4 3.2 -Post Debridement Size (cm) - Width 0.9 0.9 -Post Debridement Size (cm) - Depth 0.3 0.2 -Total Square Cm 3.06 2.88 -Wound/Ulcer Outcome Not Healed Not Healed -Ulcer Cleansing Rinsed/ Rinsed/ Irrigated with Irrigated with Saline Saline -Foul Odor after Cleansing No No -Bioengineered Tissue No Yes -Type of bioengineered Tissue EPIFIX -Expiration Date 12/08/22 -Product Lot Number [id number] -Percent Used 100 -Saline Lot Number N/A -Topical Lidocaine (%) 4 -Bleeding Controlled with NA NA -Treatment Response Procedure Procedure Tolerated Well Tolerated Well Pain Scale: 0-10 Numeric Is Patient Pain Free? Yes Yes Laterality: Right - Groin Type of Debridement: Excisional debridement Anesthesia Used: 4% Lidocaine Solution Depth: Down to and including healthy tissue, in the subcutaneous layer Percentage of wound debrided: 100 Instrument Used: 5mm curette Severity: Fat Layer Exposed Amount of bleeding with debridement: Mild Bleeding Controlled with: Compression and gauze Patient tolerated procedure well Following a routine excisional debridement, which was well-tolerated by the patient, an EpiFix allograft was applied topically. This represents the 6th such application. Upon removal from its sterile packaging, the allograft was cut to appropriate size and shape. It was then placed topically. Wound veil and gauze were then applied, and secured in place using Steri-Strips. The procedure was well-tolerated by the patient. 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 In the 1970's, she was diagnosed with malignant melanoma of the right calf, with metastasis to lymph nodes in the right groin. She underwent excision of the melanoma with right groin lymphadenectomy. She was subsequently treated with a long series of radiation treatments to the right groin. During the days of her radiation treatment, it is suspected that the radiation techniques were somewhat early in their evolution, and quite likely that the patient received massive doses of radiation exposure, exceeding doses which would be considered appropriate today, with techniques which are primitive by today's standards. As result, the patient has developed soft tissue radiation injury, and has previously been treated at our wound center in the past with a series of approximately 90 hyperbaric oxygen therapy treatments, in 2011. She presented with recurrence of soft tissue radionecrosis in the right groin. Hyperbaric oxygen therapy treatments have been initiated, and the patient has undergone a series of nearly 90 hyperbaric oxygen treatment sessions. She has shown benefit from the hyperbaric oxygen treatments, which were felt to be clinically warranted, and in accordance with the patient's past history, in which wound healing was effected only after 90 such sessions. She has tolerated hyperbaric oxygen therapy well, without complaints or complications. She has completed her nearly 90 sessions of hyperbaric oxygen treatments. At this time, there is no clinical evidence of infection or cellulitis in the daniel-ulcer area. Clearly, the patient is responding very slowly to the variety of conventional treatment measures which have been implemented. However, in review of the patient's past history, such has been the case previously, as each treatment course has been rather protracted and lengthy in nature to achieve ultimate healing. Plan: The patient has been the recipient of 6 EpiFix applications as of today. 4 additional applications have been approved by the patient's insurance. Additional allograft applications are felt to be warranted, and recent approval from her insurance company has been granted. Recent cultures have been positive for Staphylococcus aureus and Corynebacterium stratum. Duricef 1 g p.o. twice daily for 10 days was prescribed. The patient has completed her course of Duricef. Patient will return in 1 week for reassessment. The patient is to continue with a nutritious diet. Additionally, consideration may be given in the future to biopsy of the ulcer and ulcer margins, given the patient's history of intense radiation to this area, and her relative lack of progress of healing. Influenza vaccine was not administered today. The patient is not a smoker. She stands 5 feet 7 inches tall. She weighs 198 pounds. Her BMI is 31, which places her in a class I weight category. Weight loss has been recommended. She is to collaborate with her primary care physician in this regard.
--- NOTE | 2018-03-20 11:11 | HP.PCM_ITS ---
(1) History of uterine cancer Status: Chronic Current Visit: No Code(s): Z85.42 - Personal history of malignant neoplasm of other parts of uterus (2) History of melanoma Status: Chronic Current Visit: Yes Code(s): Z85.820 - Personal history of malignant melanoma of skin (3) Hyperlipidemia Status: Chronic Current Visit: No Code(s): E78.5 - Hyperlipidemia, unspecified (4) GERD (gastroesophageal reflux disease) Status: Chronic Current Visit: No Code(s): K21.9 - Gastro-esophageal reflux disease without esophagitis (5) Ulcer of right groin Status: Chronic Current Visit: Yes Qualifiers: Non-pressure ulcer stage: with fat layer exposed Code(s): L98.499 - Non-pressure chronic ulcer of skin of other sites with unspecified severity (6) Obesity (BMI 30.0-34.9) Status: Chronic Current Visit: No Code(s): E66.9 - Obesity, unspecified (7) Amputee, above knee Status: Chronic Current Visit: Yes Qualifiers: Laterality: right Code(s): Z89.619 - Acquired absence of unspecified leg above knee (8) Soft tissue radionecrosis Status: Chronic Current Visit: Yes Code(s): L59.8 - Other specified disorders of the skin and subcutaneous tissue related to radiation; Y84.2 - Radiological procedure and radiotherapy as the cause of abnormal reaction of the patient, or of later complication, without mention of misadventure at the time of the procedure (9) soft tissue radiation injury Status: Chronic Current Visit: Yes History of Present Illness Date of Service: 03/20/18 Chief Complaint: 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 The patient underwent excision of her melanoma with lymphadenectomy in the right groin. She also underwent lengthy radiation treatments at the [facility] in [place], [place]. Melanoma recurred, and the patient was subsequently treated with monoclonal antibodies in 1984. 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 Treatment included local ulcer care and hyperbaric oxygen therapy. She underwent a total of nearly 90 treatments of hyperbaric oxygen therapy. It is known that she tolerated the therapies well, and derived significant benefit. She relates no history of claustrophobia, or other complications related to the hyperbaric oxygen therapy treatments. She has no history of barotrauma to lungs , ears, etc. Her medical history has been reviewed, without any evidence of contraindications to hyperbaric oxygen therapy. Hyperbaric oxygen therapy has been administered for nearly 90 treatment sessions. We are currently using EpiFix allografts, and she has undergone 5 applications thus far. The patient' s history suggests that the right groin wound in the past responded to hyperbaric oxygen therapy, but required 90 such sessions. It appears as though the patient's current clinical course is mimicking that of the past, with wound healing which is very recalcitrant to conventional treatment measures. 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 She is undergone excision of melanoma from the right calf, with lymphadenectomy of the right groin in the 1969's. She subsequently required surgeries of the right thigh related to osteomyelitis, MRSA infection, and radiation injury to the right femoral artery. Ultimately, the patient required right above-knee amputation, performed in 2000. She also has a remote history of open reduction and internal fixation of a right ankle fracture. Allergies/Adverse Reactions: Allergies No Known Allergies Allergy (Verified 06/20/17 09:22) Home Medications: Ambulatory Orders Medication Instructions Recorded Famotidine 20 mg PO 06/20/17 Pravastatin [Pravachol] 20 mg PO DAILY 06/20/17 - Family History Maternal - - The patient's mother is 98 years of age and relatively healthy. The patient 's father at age of 79 with a history of cardiomyopathy. Smoking Status: Former smoker Tobacco Use: Non-smoker Review of Systems Constitutional: Denies: Chills, Fever, Weight Change Eyes: Denies: Pain, Vision Change HEENT: Denies: Difficulty Hearing, Difficulty Swallowing, Sinus Congestion Cardiovascular: Denies: Chest Pain, Palpitations Respiratory: Denies: Cough, Shortness of Breath Gastrointestinal: Denies: Diarrhea, Nausea, Vomiting Genitourinary: Denies: Dysuria, Hematuria Endocrine: Denies: Heat/ Cold Intolerance, Polydipsia, Polyuria Hematologic/ Lymphatic: Denies: Easy Bruising, Easy Bleeding - Physical Exam Vital Signs Temp Pulse Resp BP 97.4 F L 81 18 139/81 H 03/20/18 09:20 03/20/18 09:20 03/20/18 09:20 03/20/18 09:20 General: Alert, Oriented x3, Cooperative, No apparent distress, Well developed, Well nourished HEENT: Atraumatic, PERRLA, EOMI, Normocephalic Oral: Moist Mucosa Neck: No JVD Lungs: Normal air movement Abdomen: Non-Distended Extremities: No clubbing, No cyanosis, No edema, No Calf Tenderness, - - A well- healed above-knee amputation stump is noted on the right. The ulceration in the right groin is smaller in size. Dimensions are documented elsewhere. At this time, there is no sign of infection or cellulitis. There is a small amount of bioburden. Wound Measurements and Assessment WC - Nurse 1 - General Ulcer Measurement Start: 03/13/18 08:45 Freq: Status: Active Protocol: Activity Type Activity Date Activity User E-Sign Co-Sign Detail Recorded Client Recorded Date Recorded By Document 03/20/18 09:20 DL [id number] 03/20/18 09:26 DL 03/20/18 09:20 Wound Center Nurse 1 [Ulcer Assessment] #5 R Groin -Current Size (cm) - Length 3.1 -Current Size (cm) - Width 0.8 -Current Size (cm) - Depth 0.4 -Total Square Cm 2.48 -Photo Taken No -Exudate Amt Small (1-33%) -Exudate Type Serosanguineous -Wound Margin Thickened -Granulation Amt Medium (34-66%) -Granulation Quality [place] -Necrosis Amt Medium (34-66%) -Necrotic Tissue Type Adherent Slough -Structure Exposed N/A -Texture (Daniel-wound Skin Appearance) Scarring -Moisture (Daniel-wound Skin Appearance Maceration ) -Color (Daniel-wound Skin Appearance) Rubor -Temperature (Daniel-wound Skin No Abnormality Appearance) (Pt Warm) -Tenderness on Palpation (Daniel-wound No Skin Appearance) -Ulcer Cleansing Rinsed/ Irrigated with Saline -Foul Odor after Cleansing No -Anesthetic Used 4% Lidocaine Solution - Nurse 2 - General Ulcer CM Notes Start: 03/13/18 08:45 Freq: Status: Active Protocol: Activity Type Activity Date Activity User E-Sign Co-Sign Detail Recorded Client Recorded Date Recorded By Document 03/20/18 10:38 [id number] 03/20/18 10:46 JS 03/20/18 10:38 Wound Center Nurse 2 [Procedure/Treatment] -Time 10:43 -Correct Patient Yes -Correct Side, Site, Position Yes -Correct Procedure Yes -Procedure Performed Yes -Type of Procedure Debridement -Clinical Debridement Subcutaneous -Post Debridement Size (cm) - Length 3.2 -Post Debridement Size (cm) - Width 0.9 -Post Debridement Size (cm) - Depth 0.2 -Total Square Cm 2.88 -Wound/Ulcer Outcome Not Healed -Ulcer Cleansing Rinsed/ Irrigated with Saline -Foul Odor after Cleansing No -Bioengineered Tissue Yes -Type of bioengineered Tissue EPIFIX -Expiration Date 12/08/22 -Product Lot Number [id number] -Percent Used 100 -Saline Lot Number N/A -Topical Lidocaine (%) 4 -Bleeding Controlled with NA -Treatment Response Procedure Tolerated Well [See Physician Procedure note for Specifics] Pain Scale: 0-10 Numeric [Pain] -Is Patient Pain Free? Yes Musculoskeletal: No Muscle Wasting Neurological: Cranial nerves II-XII grossly intact, Neuro grossly intact Psych/Mental Status: Normal Affect, Appropriate, Alert and oriented to time, place, person, mood and affect Debridement Note Post-Debridement Measurements/Treatment - Nurse 2 - General Ulcer CM Notes Start: 03/13/18 08:45 Freq: Status: Active Protocol: Activity Type Activity Date Activity User E-Sign Co-Sign Detail Recorded Client Recorded Date Recorded By Document 03/13/18 09:08 [id number] 03/13/18 09:13 JS Document 03/20/18 10:38 [id number] 03/20/18 10:46 JS 03/13/18 03/20/18 09:08 10:38 Wound Center Nurse 2 #5 R Groin -Time 09:08 10:43 -Correct Patient Yes Yes -Correct Side, Site, Position Yes Yes -Correct Procedure Yes Yes -Procedure Performed Yes Yes -Type of Procedure Debridement Debridement -Clinical Debridement Subcutaneous Subcutaneous -Post Debridement Size (cm) - Length 3.4 3.2 -Post Debridement Size (cm) - Width 0.9 0.9 -Post Debridement Size (cm) - Depth 0.3 0.2 -Total Square Cm 3.06 2.88 -Wound/Ulcer Outcome Not Healed Not Healed -Ulcer Cleansing Rinsed/ Rinsed/ Irrigated with Irrigated with Saline Saline -Foul Odor after Cleansing No No -Bioengineered Tissue No Yes -Type of bioengineered Tissue EPIFIX -Expiration Date 12/08/22 -Product Lot Number [id number] -Percent Used 100 -Saline Lot Number N/A -Topical Lidocaine (%) 4 -Bleeding Controlled with NA NA -Treatment Response Procedure Procedure Tolerated Well Tolerated Well Pain Scale: 0-10 Numeric Is Patient Pain Free? Yes Yes Laterality: Right - Groin Type of Debridement: Excisional debridement Anesthesia Used: 4% Lidocaine Solution Depth: Down to and including healthy tissue, in the subcutaneous layer Percentage of wound debrided: 100 Instrument Used: 5mm curette Severity: Fat Layer Exposed Amount of bleeding with debridement: Mild Bleeding Controlled with: Compression and gauze Patient tolerated procedure well Following a routine excisional debridement, which was well-tolerated by the patient, an EpiFix allograft was applied topically. This represents the 6th such application. Upon removal from its sterile packaging, the allograft was cut to appropriate size and shape. It was then placed topically. Wound veil and gauze were then applied, and secured in place using Steri-Strips. The procedure was well-tolerated by the patient. 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 In the 1970's, she was diagnosed with malignant melanoma of the right calf, with metastasis to lymph nodes in the right groin. She underwent excision of the melanoma with right groin lymphadenectomy. She was subsequently treated with a long series of radiation treatments to the right groin. During the days of her radiation treatment, it is suspected that the radiation techniques were somewhat early in their evolution, and quite likely that the patient received massive doses of radiation exposure, exceeding doses which would be considered appropriate today , with techniques which are primitive by today's standards. As result, the patient has developed soft tissue radiation injury, and has previously been treated at our wound center in the past with a series of approximately 90 hyperbaric oxygen therapy treatments, in 2011. She presented with recurrence of soft tissue radionecrosis in the right groin. Hyperbaric oxygen therapy treatments have been initiated, and the patient has undergone a series of nearly 90 hyperbaric oxygen treatment sessions. She has shown benefit from the hyperbaric oxygen treatments, which were felt to be clinically warranted, and in accordance with the patient's past history, in which wound healing was effected only after 90 such sessions. She has tolerated hyperbaric oxygen therapy well, without complaints or complications. She has completed her nearly 90 sessions of hyperbaric oxygen treatments. At this time, there is no clinical evidence of infection or cellulitis in the daniel-ulcer area. Clearly, the patient is responding very slowly to the variety of conventional treatment measures which have been implemented. However, in review of the patient's past history, such has been the case previously, as each treatment course has been rather protracted and lengthy in nature to achieve ultimate healing. Plan: The patient has been the recipient of 6 EpiFix applications as of today. 4 additional applications have been approved by the patient's insurance. Additional allograft applications are felt to be warranted, and recent approval from her insurance company has been granted. Recent cultures have been positive for Staphylococcus aureus and Corynebacterium stratum. Duricef 1 g p.o. twice daily for 10 days was prescribed. The patient has completed her course of Duricef. Patient will return in 1 week for reassessment. The patient is to continue with a nutritious diet. Additionally, consideration may be given in the future to biopsy of the ulcer and ulcer margins, given the patient's history of intense radiation to this area, and her relative lack of progress of healing. Influenza vaccine was not administered today. The patient is not a smoker. She stands 5 feet 7 inches tall. She weighs 198 pounds. Her BMI is 31, which places her in a class I weight category. Weight loss has been recommended. She is to collaborate with her primary care physician in this regard.
[2018-03-27 10:19] VITALS: BP 116/70; PULSE 84; RESP 18; TEMP 36.3; BMI 68.3
--- NOTE | 2018-03-27 10:59 | PCM.WC.HP ---
(1) History of uterine cancer Status: Chronic Current Visit: No Code(s): Z85.42 - Personal history of malignant neoplasm of other parts of uterus (2) History of melanoma Status: Chronic Current Visit: No Code(s): Z85.820 - Personal history of malignant melanoma of skin (3) Hyperlipidemia Status: Chronic Current Visit: No Code(s): E78.5 - Hyperlipidemia, unspecified (4) GERD (gastroesophageal reflux disease) Status: Chronic Current Visit: No Code(s): K21.9 - Gastro-esophageal reflux disease without esophagitis (5) Ulcer of right groin Status: Chronic Current Visit: No Qualifiers: Non-pressure ulcer stage: with fat layer exposed Code(s): L98.499 - Non-pressure chronic ulcer of skin of other sites with unspecified severity (6) Obesity (BMI 30.0-34.9) Status: Chronic Current Visit: No Code(s): E66.9 - Obesity, unspecified (7) Amputee, above knee Status: Chronic Current Visit: No Qualifiers: Laterality: right Code(s): Z89.619 - Acquired absence of unspecified leg above knee (8) Soft tissue radionecrosis Status: Chronic Current Visit: No Code(s): L59.8 - Other specified disorders of the skin and subcutaneous tissue related to radiation; Y84.2 - Radiological procedure and radiotherapy as the cause of abnormal reaction of the patient, or of later complication, without mention of misadventure at the time of the procedure (9) soft tissue radiation injury Status: Chronic Current Visit: No History of Present Illness Date of Service: 03/27/18 Chief Complaint: 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 The patient underwent excision of her melanoma with lymphadenectomy in the right groin. She also underwent lengthy radiation treatments at the [facility] in [place], [place]. Melanoma recurred, and the patient was subsequently treated with monoclonal antibodies in 1984. 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 Treatment included local ulcer care and hyperbaric oxygen therapy. She underwent a total of nearly 90 treatments of hyperbaric oxygen therapy. It is known that she tolerated the therapies well, and derived significant benefit. She relates no history of claustrophobia, or other complications related to the hyperbaric oxygen therapy treatments. She has no history of barotrauma to lungs, ears, etc. Her medical history has been reviewed, without any evidence of contraindications to hyperbaric oxygen therapy. Hyperbaric oxygen therapy has been administered for nearly 90 treatment sessions. We are currently using EpiFix allografts, and she has undergone 5 applications thus far. The patient's history suggests that the right groin wound in the past responded to hyperbaric oxygen therapy, but required 90 such sessions. It appears as though the patient's current clinical course is mimicking that of the past, with wound healing which is very recalcitrant to conventional treatment measures. 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 She is undergone excision of melanoma from the right calf, with lymphadenectomy of the right groin in the 1969's. She subsequently required surgeries of the right thigh related to osteomyelitis, MRSA infection, and radiation injury to the right femoral artery. Ultimately, the patient required right above-knee amputation, performed in 2000. She also has a remote history of open reduction and internal fixation of a right ankle fracture. Allergies/Adverse Reactions: Allergies No Known Allergies Allergy (Verified 06/20/17 09:22) Home Medications: Ambulatory Orders Medication Instructions Recorded Famotidine 20 mg PO 06/20/17 Pravastatin [Pravachol] 20 mg PO DAILY 06/20/17 - Family History Maternal - - The patient's mother is 98 years of age and relatively healthy. The patient's father at age of 79 with a history of cardiomyopathy. Smoking Status: Former smoker Tobacco Use: Non-smoker Review of Systems Constitutional: Denies: Chills, Fever, Weight Change Eyes: Denies: Pain, Vision Change HEENT: Denies: Difficulty Hearing, Difficulty Swallowing, Sinus Congestion Cardiovascular: Denies: Chest Pain, Palpitations Respiratory: Denies: Cough, Shortness of Breath Gastrointestinal: Denies: Diarrhea, Nausea, Vomiting Genitourinary: Denies: Dysuria, Hematuria Endocrine: Denies: Heat/ Cold Intolerance, Polydipsia, Polyuria Hematologic/ Lymphatic: Denies: Easy Bruising, Easy Bleeding - Physical Exam Vital Signs Temp Pulse Resp BP 97.3 F L 84 18 116/70 03/27/18 10:19 03/27/18 10:19 03/27/18 10:19 03/27/18 10:19 General: Alert, Oriented x3, Cooperative, No apparent distress, Well developed, Well nourished HEENT: Atraumatic, PERRLA, EOMI, Normocephalic Oral: Moist Mucosa Neck: No JVD Lungs: Normal air movement Abdomen: Non-Distended Extremities: No clubbing, No cyanosis, No edema, No Calf Tenderness, - - A well-healed right above-knee amputation stump is noted. The ulceration in the right groin is relatively unchanged. Mentions are documented elsewhere. There is no sign of infection or cellulitis. There is a moderate amount of bioburden. Skin: No rashes Wound Measurements and Assessment WC - Nurse 1 - General Ulcer Measurement Start: 03/13/18 08:45 Freq: Status: Active Protocol: Activity Type Activity Date Activity User E-Sign Co-Sign Detail Recorded Client Recorded Date Recorded By Document 03/27/18 10:19 DL [id number] 03/27/18 10:25 DL 03/27/18 10:19 Wound Center Nurse 1 [Ulcer Assessment] #5 R Groin -Current Size (cm) - Length 3.1 -Current Size (cm) - Width 1.0 -Current Size (cm) - Depth 0.3 -Total Square Cm 3.10 -Photo Taken No -Epithelialization Medium 34-66% -Tunneling No -Undermining/Tunneling No -Circular Undermining No -Classification - Thickness Full Thickness without Exposed Support Structure -Exudate Amt Small (1-33%) -Exudate Type Serous -Wound Margin Distinct, Outline Attached -Granulation Amt Medium (34-66%) -Granulation Quality Pale [place] -Necrotic Tissue Type Adherent Slough -Structure Exposed None/Limited to Skin Breakdown -Texture (Daniel-wound Skin Appearance) Assessed Scarring -Moisture (Daniel-wound Skin Appearance Assessed ) Weeping -Color (Daniel-wound Skin Appearance) No Abnormality Assessed -Temperature (Daniel-wound Skin No Abnormality Appearance) (Pt Warm) -Tenderness on Palpation (Daniel-wound No Skin Appearance) -Ulcer Cleansing Wound Cleanser -Foul Odor after Cleansing No -Anesthetic Used 5% Lidocaine Gel [Edema Assessment] -Lower Limb Edema Present No WC - Nurse 2 - General Ulcer CM Notes Start: 03/13/18 08:45 Freq: Status: Active Protocol: Activity Type Activity Date Activity User E-Sign Co-Sign Detail Recorded Client Recorded Date Recorded By Document 03/27/18 10:45 [id number] 03/27/18 10:50 03/27/18 10:45 Wound Center Nurse 2 [Procedure/Treatment] #5 R Groin -Time 10:48 -Correct Patient Yes -Correct Side, Site, Position Yes -Correct Procedure Yes -Procedure Performed Yes -Type of Procedure Debridement -Clinical Debridement Subcutaneous -Post Debridement Size (cm) - Length 3.1 -Post Debridement Size (cm) - Width 1.0 -Post Debridement Size (cm) - Depth 0.3 -Total Square Cm 3.10 -Wound/Ulcer Outcome Not Healed -Ulcer Cleansing Not Cleansed -Foul Odor after Cleansing No -Bioengineered Tissue Yes -Type of bioengineered Tissue EPIFIX -Expiration Date 11/07/22 -Product Lot Number [id number] -Percent Used 100 -Saline Lot Number [id number] -Bleeding Controlled with NA -Treatment Response Procedure Tolerated Well [See Physician Procedure note for Specifics] Pain Scale: 0-10 Numeric [Pain] -Is Patient Pain Free? Yes Musculoskeletal: No Muscle Wasting Neurological: Cranial nerves II-XII grossly intact, Neuro grossly intact Psych/Mental Status: Normal Affect, Appropriate, Alert and oriented to time, place, person, mood and affect Debridement Note Post-Debridement Measurements/Treatment WC - Nurse 2 - General Ulcer CM Notes Start: 03/13/18 08:45 Freq: Status: Active Protocol: Activity Type Activity Date Activity User E-Sign Co-Sign Detail Recorded Client Recorded Date Recorded By Document 03/13/18 09:08 [id number] 03/13/18 09:13 JS Document 03/20/18 10:38 [id number] 03/20/18 10:46 JS Document 03/27/18 10:45 [id number] 03/27/18 10:50 03/13/18 03/20/18 03/27/18 09:08 10:38 10:45 Wound Center Nurse 2 #5 R Groin -Time 09:08 10:43 10:48 -Correct Patient Yes Yes Yes -Correct Side, Site, Position Yes Yes Yes -Correct Procedure Yes Yes Yes -Procedure Performed Yes Yes Yes -Type of Procedure Debridement Debridement Debridement -Clinical Debridement Subcutaneous Subcutaneous Subcutaneous -Post Debridement Size (cm) - Length 3.4 3.2 3.1 -Post Debridement Size (cm) - Width 0.9 0.9 1.0 -Post Debridement Size (cm) - Depth 0.3 0.2 0.3 -Total Square Cm 3.06 2.88 3.10 -Wound/Ulcer Outcome Not Healed Not Healed Not Healed -Ulcer Cleansing Rinsed/ Rinsed/ Not Cleansed Irrigated with Irrigated with Saline Saline -Foul Odor after Cleansing No No No -Bioengineered Tissue No Yes Yes -Type of bioengineered Tissue EPIFIX EPIFIX -Expiration Date 12/08/22 11/07/22 -Product Lot Number [id number] -Percent Used 100 100 -Saline Lot Number N/A [id number] -Topical Lidocaine (%) 4 -Bleeding Controlled with NA NA NA -Treatment Response Procedure Procedure Procedure Tolerated Well Tolerated Well Tolerated Well Pain Scale: 0-10 Numeric Is Patient Pain Free? Yes Yes Yes Laterality: Right - Groin Type of Debridement: Excisional debridement Anesthesia Used: 4% Lidocaine Solution Depth: Down to and including healthy tissue, in the subcutaneous layer Percentage of wound debrided: 100 Instrument Used: 7mm curette Severity: Fat Layer Exposed Amount of bleeding with debridement: Mild Bleeding Controlled with: Compression and gauze Patient tolerated procedure well Following a routine excisional debridement, which was well-tolerated by the patient, a 2 cm x 2 cm EpiFix allograft was applied to the right groin ulceration. Upon removal from its sterile packaging, the allograft was cut to the appropriate size and shape. It was then placed topically. It was covered with wound veil and gauze. It was then secured using Steri-Strips. The procedure was well-tolerated. Today's session represents 1/ such application of EpiFix. Assessment/Plan Assessment: This is a 63-year-old female with a somewhat complicated and complex past medical history, documented above. In the 1970's, she was diagnosed with malignant melanoma of the right calf, with metastasis to lymph nodes in the right groin. She underwent excision of the melanoma with right groin lymphadenectomy. She was subsequently treated with a long series of radiation treatments to the right groin. During the days of her radiation treatment, it is suspected that the radiation techniques were somewhat early in their evolution, and quite likely that the patient received massive doses of radiation exposure, exceeding doses which would be considered appropriate today, with techniques which are primitive by today's standards. As result, the patient has developed soft tissue radiation injury, and has previously been treated at our wound center in the past with a series of approximately 90 hyperbaric oxygen therapy treatments, in 2011. She presented with recurrence of soft tissue radionecrosis in the right groin. Hyperbaric oxygen therapy treatments have been initiated, and the patient has undergone a series of nearly 90 hyperbaric oxygen treatment sessions. She has shown benefit from the hyperbaric oxygen treatments, which were felt to be clinically warranted, and in accordance with the patient's past history, in which wound healing was effected only after 90 such sessions. She has tolerated hyperbaric oxygen therapy well, without complaints or complications. She has completed her nearly 90 sessions of hyperbaric oxygen treatments. At this time, there is no clinical evidence of infection or cellulitis in the daniel-ulcer area. Clearly, the patient is responding very slowly to the variety of conventional treatment measures which have been implemented. However, in review of the patient's past history, such has been the case previously, as each treatment course has been rather protracted and lengthy in nature to achieve ultimate healing. Plan: The patient has been the recipient of 7 EpiFix applications as of today. Additional applications have been approved by the patient's insurance. Additional allograft applications are felt to be warranted, and recent approval from her insurance company has been granted. Recent cultures have been positive for Staphylococcus aureus and Corynebacterium stratum. Duricef 1 g p.o. twice daily for 10 days was prescribed. The patient has completed her course of Duricef. Patient will return in 1 week for reassessment. The patient is to continue with a nutritious diet. Additionally, consideration may be given in the future to biopsy of the ulcer and ulcer margins, given the patient's history of intense radiation to this area, and her relative lack of progress of healing. Influenza vaccine was not administered today. The patient is not a smoker. She stands 5 feet 7 inches tall. She weighs 198 pounds. Her BMI is 31, which places her in a class I weight category. Weight loss has been recommended. She is to collaborate with her primary care physician in this regard.
--- NOTE | 2018-03-27 11:03 | HP.PCM_ITS ---
(1) History of uterine cancer Status: Chronic Current Visit: No Code(s): Z85.42 - Personal history of malignant neoplasm of other parts of uterus (2) History of melanoma Status: Chronic Current Visit: No Code(s): Z85.820 - Personal history of malignant melanoma of skin (3) Hyperlipidemia Status: Chronic Current Visit: No Code(s): E78.5 - Hyperlipidemia, unspecified (4) GERD (gastroesophageal reflux disease) Status: Chronic Current Visit: No Code(s): K21.9 - Gastro-esophageal reflux disease without esophagitis (5) Ulcer of right groin Status: Chronic Current Visit: No Qualifiers: Non-pressure ulcer stage: with fat layer exposed Code(s): L98.499 - Non-pressure chronic ulcer of skin of other sites with unspecified severity (6) Obesity (BMI 30.0-34.9) Status: Chronic Current Visit: No Code(s): E66.9 - Obesity, unspecified (7) Amputee, above knee Status: Chronic Current Visit: No Qualifiers: Laterality: right Code(s): Z89.619 - Acquired absence of unspecified leg above knee (8) Soft tissue radionecrosis Status: Chronic Current Visit: No Code(s): L59.8 - Other specified disorders of the skin and subcutaneous tissue related to radiation; Y84.2 - Radiological procedure and radiotherapy as the cause of abnormal reaction of the patient, or of later complication, without mention of misadventure at the time of the procedure (9) soft tissue radiation injury Status: Chronic Current Visit: No History of Present Illness Date of Service: 03/27/18 Chief Complaint: 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 The patient underwent excision of her melanoma with lymphadenectomy in the right groin. She also underwent lengthy radiation treatments at the [facility] in [place], [place]. Melanoma recurred, and the patient was subsequently treated with monoclonal antibodies in 1984. 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 Treatment included local ulcer care and hyperbaric oxygen therapy. She underwent a total of nearly 90 treatments of hyperbaric oxygen therapy. It is known that she tolerated the therapies well, and derived significant benefit. She relates no history of claustrophobia, or other complications related to the hyperbaric oxygen therapy treatments. She has no history of barotrauma to lungs , ears, etc. Her medical history has been reviewed, without any evidence of contraindications to hyperbaric oxygen therapy. Hyperbaric oxygen therapy has been administered for nearly 90 treatment sessions. We are currently using EpiFix allografts, and she has undergone 5 applications thus far. The patient' s history suggests that the right groin wound in the past responded to hyperbaric oxygen therapy, but required 90 such sessions. It appears as though the patient's current clinical course is mimicking that of the past, with wound healing which is very recalcitrant to conventional treatment measures. 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 She is undergone excision of melanoma from the right calf, with lymphadenectomy of the right groin in the 1969's. She subsequently required surgeries of the right thigh related to osteomyelitis, MRSA infection, and radiation injury to the right femoral artery. Ultimately, the patient required right above-knee amputation, performed in 2000. She also has a remote history of open reduction and internal fixation of a right ankle fracture. Allergies/Adverse Reactions: Allergies No Known Allergies Allergy (Verified 06/20/17 09:22) Home Medications: Ambulatory Orders Medication Instructions Recorded Famotidine 20 mg PO 06/20/17 Pravastatin [Pravachol] 20 mg PO DAILY 06/20/17 - Family History Maternal - - The patient's mother is 98 years of age and relatively healthy. The patient 's father at age of 79 with a history of cardiomyopathy. Smoking Status: Former smoker Tobacco Use: Non-smoker Review of Systems Constitutional: Denies: Chills, Fever, Weight Change Eyes: Denies: Pain, Vision Change HEENT: Denies: Difficulty Hearing, Difficulty Swallowing, Sinus Congestion Cardiovascular: Denies: Chest Pain, Palpitations Respiratory: Denies: Cough, Shortness of Breath Gastrointestinal: Denies: Diarrhea, Nausea, Vomiting Genitourinary: Denies: Dysuria, Hematuria Endocrine: Denies: Heat/ Cold Intolerance, Polydipsia, Polyuria Hematologic/ Lymphatic: Denies: Easy Bruising, Easy Bleeding - Physical Exam Vital Signs Temp Pulse Resp BP 97.3 F L 84 18 116/70 03/27/18 10:19 03/27/18 10:19 03/27/18 10:19 03/27/18 10:19 General: Alert, Oriented x3, Cooperative, No apparent distress, Well developed, Well nourished HEENT: Atraumatic, PERRLA, EOMI, Normocephalic Oral: Moist Mucosa Neck: No JVD Lungs: Normal air movement Abdomen: Non-Distended Extremities: No clubbing, No cyanosis, No edema, No Calf Tenderness, - - A well- healed right above-knee amputation stump is noted. The ulceration in the right groin is relatively unchanged. Mentions are documented elsewhere. There is no sign of infection or cellulitis. There is a moderate amount of bioburden. Skin: No rashes Wound Measurements and Assessment WC - Nurse 1 - General Ulcer Measurement Start: 03/13/18 08:45 Freq: Status: Active Protocol: Activity Type Activity Date Activity User E-Sign Co-Sign Detail Recorded Client Recorded Date Recorded By Document 03/27/18 10:19 DL [id number] 03/27/18 10:25 DL 03/27/18 10:19 Wound Center Nurse 1 [Ulcer Assessment] #5 R Groin -Current Size (cm) - Length 3.1 -Current Size (cm) - Width 1.0 -Current Size (cm) - Depth 0.3 -Total Square Cm 3.10 -Photo Taken No -Epithelialization Medium 34-66% -Tunneling No -Undermining/Tunneling No -Circular Undermining No -Classification - Thickness Full Thickness without Exposed Support Structure -Exudate Amt Small (1-33%) -Exudate Type Serous -Wound Margin Distinct, Outline Attached -Granulation Amt Medium (34-66%) -Granulation Quality Pale Crockett -Necrotic Tissue Type Adherent Slough -Structure Exposed None/Limited to Skin Breakdown -Texture (Daniel-wound Skin Appearance) Assessed Scarring -Moisture (Daniel-wound Skin Appearance Assessed ) Weeping -Color (Daniel-wound Skin Appearance) No Abnormality Assessed -Temperature (Daniel-wound Skin No Abnormality Appearance) (Pt Warm) -Tenderness on Palpation (Daniel-wound No Skin Appearance) -Ulcer Cleansing Wound Cleanser -Foul Odor after Cleansing No -Anesthetic Used 5% Lidocaine Gel [Edema Assessment] -Lower Limb Edema Present No WC - Nurse 2 - General Ulcer CM Notes Start: 03/13/18 08:45 Freq: Status: Active Protocol: Activity Type Activity Date Activity User E-Sign Co-Sign Detail Recorded Client Recorded Date Recorded By Document 03/27/18 10:45 [id number] 03/27/18 10:50 03/27/18 10:45 Wound Center Nurse 2 [Procedure/Treatment] #5 R Groin -Time 10:48 -Correct Patient Yes -Correct Side, Site, Position Yes -Correct Procedure Yes -Procedure Performed Yes -Type of Procedure Debridement -Clinical Debridement Subcutaneous -Post Debridement Size (cm) - Length 3.1 -Post Debridement Size (cm) - Width 1.0 -Post Debridement Size (cm) - Depth 0.3 -Total Square Cm 3.10 -Wound/Ulcer Outcome Not Healed -Ulcer Cleansing Not Cleansed -Foul Odor after Cleansing No -Bioengineered Tissue Yes -Type of bioengineered Tissue EPIFIX -Expiration Date 11/07/22 -Product Lot Number [id number] -Percent Used 100 -Saline Lot Number [id number] -Bleeding Controlled with NA -Treatment Response Procedure Tolerated Well [See Physician Procedure note for Specifics] Pain Scale: 0-10 Numeric [Pain] -Is Patient Pain Free? Yes Musculoskeletal: No Muscle Wasting Neurological: Cranial nerves II-XII grossly intact, Neuro grossly intact Psych/Mental Status: Normal Affect, Appropriate, Alert and oriented to time, place, person, mood and affect Debridement Note Post-Debridement Measurements/Treatment WC - Nurse 2 - General Ulcer CM Notes Start: 03/13/18 08:45 Freq: Status: Active Protocol: Activity Type Activity Date Activity User E-Sign Co-Sign Detail Recorded Client Recorded Date Recorded By Document 03/13/18 09:08 [id number] 03/13/18 09:13 JS Document 03/20/18 10:38 [id number] 03/20/18 10:46 JS Document 03/27/18 10:45 [id number] 03/27/18 10:50 03/13/18 03/20/18 03/27/18 09:08 10:38 10:45 Wound Center Nurse 2 #5 R Groin -Time 09:08 10:43 10:48 -Correct Patient Yes Yes Yes -Correct Side, Site, Position Yes Yes Yes -Correct Procedure Yes Yes Yes -Procedure Performed Yes Yes Yes -Type of Procedure Debridement Debridement Debridement -Clinical Debridement Subcutaneous Subcutaneous Subcutaneous -Post Debridement Size (cm) - Length 3.4 3.2 3.1 -Post Debridement Size (cm) - Width 0.9 0.9 1.0 -Post Debridement Size (cm) - Depth 0.3 0.2 0.3 -Total Square Cm 3.06 2.88 3.10 -Wound/Ulcer Outcome Not Healed Not Healed Not Healed -Ulcer Cleansing Rinsed/ Rinsed/ Not Cleansed Irrigated with Irrigated with Saline Saline -Foul Odor after Cleansing No No No -Bioengineered Tissue No Yes Yes -Type of bioengineered Tissue EPIFIX EPIFIX -Expiration Date 12/08/22 11/07/22 -Product Lot Number [id number] -Percent Used 100 100 -Saline Lot Number N/A [id number] -Topical Lidocaine (%) 4 -Bleeding Controlled with NA NA NA -Treatment Response Procedure Procedure Procedure Tolerated Well Tolerated Well Tolerated Well Pain Scale: 0-10 Numeric Is Patient Pain Free? Yes Yes Yes Laterality: Right - Groin Type of Debridement: Excisional debridement Anesthesia Used: 4% Lidocaine Solution Depth: Down to and including healthy tissue, in the subcutaneous layer Percentage of wound debrided: 100 Instrument Used: 7mm curette Severity: Fat Layer Exposed Amount of bleeding with debridement: Mild Bleeding Controlled with: Compression and gauze Patient tolerated procedure well Following a routine excisional debridement, which was well-tolerated by the patient, a 2 cm x 2 cm EpiFix allograft was applied to the right groin ulceration. Upon removal from its sterile packaging, the allograft was cut to the appropriate size and shape. It was then placed topically. It was covered with wound veil and gauze. It was then secured using Steri-Strips. The procedure was well-tolerated. Today's session represents 1/ such application of EpiFix. Assessment/Plan Assessment: This is a 63-year-old female with a somewhat complicated and complex past medical history, documented above. In the 1970's, she was diagnosed with malignant melanoma of the right calf, with metastasis to lymph nodes in the right groin. She underwent excision of the melanoma with right groin lymphadenectomy. She was subsequently treated with a long series of radiation treatments to the right groin. During the days of her radiation treatment, it is suspected that the radiation techniques were somewhat early in their evolution, and quite likely that the patient received massive doses of radiation exposure, exceeding doses which would be considered appropriate today , with techniques which are primitive by today's standards. As result, the patient has developed soft tissue radiation injury, and has previously been treated at our wound center in the past with a series of approximately 90 hyperbaric oxygen therapy treatments, in 2011. She presented with recurrence of soft tissue radionecrosis in the right groin. Hyperbaric oxygen therapy treatments have been initiated, and the patient has undergone a series of nearly 90 hyperbaric oxygen treatment sessions. She has shown benefit from the hyperbaric oxygen treatments, which were felt to be clinically warranted, and in accordance with the patient's past history, in which wound healing was effected only after 90 such sessions. She has tolerated hyperbaric oxygen therapy well, without complaints or complications. She has completed her nearly 90 sessions of hyperbaric oxygen treatments. At this time, there is no clinical evidence of infection or cellulitis in the daniel-ulcer area. Clearly, the patient is responding very slowly to the variety of conventional treatment measures which have been implemented. However, in review of the patient's past history, such has been the case previously, as each treatment course has been rather protracted and lengthy in nature to achieve ultimate healing. Plan: The patient has been the recipient of 7 EpiFix applications as of today. Additional applications have been approved by the patient's insurance. Additional allograft applications are felt to be warranted, and recent approval from her insurance company has been granted. Recent cultures have been positive for Staphylococcus aureus and Corynebacterium stratum. Duricef 1 g p.o. twice daily for 10 days was prescribed. The patient has completed her course of Duricef. Patient will return in 1 week for reassessment. The patient is to continue with a nutritious diet. Additionally, consideration may be given in the future to biopsy of the ulcer and ulcer margins, given the patient's history of intense radiation to this area, and her relative lack of progress of healing. Influenza vaccine was not administered today. The patient is not a smoker. She stands 5 feet 7 inches tall. She weighs 198 pounds. Her BMI is 31, which places her in a class I weight category. Weight loss has been recommended. She is to collaborate with her primary care physician in this regard.
[2018-04-03 08:56] VITALS: BP 167/97; PULSE 86; RESP 16; TEMP 35.8; BMI 68.3
--- NOTE | 2018-04-03 10:01 | PCM.WC.HP ---
(1) History of uterine cancer Status: Chronic Current Visit: No Code(s): Z85.42 - Personal history of malignant neoplasm of other parts of uterus (2) History of melanoma Status: Chronic Current Visit: Yes Code(s): Z85.820 - Personal history of malignant melanoma of skin (3) Hyperlipidemia Status: Chronic Current Visit: No Code(s): E78.5 - Hyperlipidemia, unspecified (4) GERD (gastroesophageal reflux disease) Status: Chronic Current Visit: No Code(s): K21.9 - Gastro-esophageal reflux disease without esophagitis (5) Ulcer of right groin Status: Chronic Current Visit: Yes Qualifiers: Non-pressure ulcer stage: with fat layer exposed Code(s): L98.499 - Non-pressure chronic ulcer of skin of other sites with unspecified severity (6) Obesity (BMI 30.0-34.9) Status: Chronic Current Visit: No Code(s): E66.9 - Obesity, unspecified (7) Amputee, above knee Status: Chronic Current Visit: No Qualifiers: Laterality: right Code(s): Z89.619 - Acquired absence of unspecified leg above knee (8) Soft tissue radionecrosis Status: Chronic Current Visit: Yes Code(s): L59.8 - Other specified disorders of the skin and subcutaneous tissue related to radiation; Y84.2 - Radiological procedure and radiotherapy as the cause of abnormal reaction of the patient, or of later complication, without mention of misadventure at the time of the procedure (9) soft tissue radiation injury Status: Chronic Current Visit: Yes History of Present Illness Chief Complaint: 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 The patient underwent excision of her melanoma with lymphadenectomy in the right groin. She also underwent lengthy radiation treatments at the [facility] in [place], [place]. Melanoma recurred, and the patient was subsequently treated with monoclonal antibodies in 1984. 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 In 2012, the patient was treated in our wound center for ulcerations of the right upper thigh and groin related to soft tissue radiation necrosis. Treatment included local ulcer care and hyperbaric oxygen therapy. She underwent a total of nearly 90 treatments of hyperbaric oxygen therapy. It is known that she tolerated the therapies well, and derived significant benefit. She relates no history of claustrophobia, or other complications related to the hyperbaric oxygen therapy treatments. She has no history of barotrauma to lungs, ears, etc. Her medical history has been reviewed, without any evidence of contraindications to hyperbaric oxygen therapy. Hyperbaric oxygen therapy has been administered for nearly 90 treatment sessions. We are currently using EpiFix allografts, and she has undergone 7 applications thus far. The patient's history suggests that the right groin wound in the past responded to hyperbaric oxygen therapy, but required 90 such sessions. It appears as though the patient's current clinical course is mimicking that of the past, with wound healing which is very recalcitrant to conventional treatment measures. 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 She is undergone excision of melanoma from the right calf, with lymphadenectomy of the right groin in the 1969's. She subsequently required surgeries of the right thigh related to osteomyelitis, MRSA infection, and radiation injury to the right femoral artery. Ultimately, the patient required right above-knee amputation, performed in 2000. She also has a remote history of open reduction and internal fixation of a right ankle fracture. Allergies/Adverse Reactions: Allergies No Known Allergies Allergy (Verified 06/20/17 09:22) Home Medications: Ambulatory Orders Medication Instructions Recorded Famotidine 20 mg PO 06/20/17 Pravastatin [Pravachol] 20 mg PO DAILY 06/20/17 - Family History Maternal - - The patient's mother is 98 years of age and relatively healthy. The patient's father at age of 79 with a history of cardiomyopathy. Smoking Status: Former smoker Tobacco Use: Non-smoker Review of Systems Constitutional: Denies: Chills, Fever, Weight Change Eyes: Denies: Pain, Vision Change HEENT: Denies: Difficulty Hearing, Difficulty Swallowing, Sinus Congestion Cardiovascular: Denies: Chest Pain, Palpitations Respiratory: Denies: Cough, Shortness of Breath Gastrointestinal: Denies: Diarrhea, Nausea, Vomiting Genitourinary: Denies: Dysuria, Hematuria Endocrine: Denies: Heat/ Cold Intolerance, Polydipsia, Polyuria Hematologic/ Lymphatic: Denies: Easy Bruising, Easy Bleeding - Physical Exam Vital Signs Temp Pulse Resp BP 96.4 F L 86 16 167/97 H 04/03/18 08:56 04/03/18 08:56 04/03/18 08:56 04/03/18 08:56 General: Alert, Oriented x3, Cooperative, No apparent distress, Well developed, Well nourished HEENT: Atraumatic, PERRLA, EOMI, Normocephalic Oral: Moist Mucosa Neck: No JVD Lungs: Normal air movement Abdomen: Non-Distended Extremities: No clubbing, No cyanosis, No edema, No Calf Tenderness, - - A well-healed right above-knee amputation stump is noted. The chronic ulceration in the right groin persists, though appears to be slightly more superficial. There is evidence of healthy granulation tissue. There is a moderate amount of bioburden. Ulcer dimensions are documented elsewhere. There is no sign of infection or cellulitis. Skin: No rashes, No breakdown Wound Measurements and Assessment WC - Nurse 1 - General Ulcer Measurement Start: 03/13/18 08:45 Freq: Status: Active Protocol: Activity Type Activity Date Activity User E-Sign Co-Sign Detail Recorded Client Recorded Date Recorded By Document 04/03/18 08:56 DV [id number] 04/03/18 09:07 DV 04/03/18 08:56 Wound Center Nurse 1 [Ulcer Assessment] #5 R Groin -Combined with other wound No -Current Size (cm) - Length 3.1 -Current Size (cm) - Width 1.0 -Current Size (cm) - Depth 0.2 -Total Square Cm 3.10 -Photo Taken No -Epithelialization Small 1-33% -Tunneling No -Undermining/Tunneling No -Circular Undermining No -Classification - Thickness Full Thickness without Exposed Support Structure -Exudate Amt Small (1-33%) -Exudate Type Serous -Wound Margin Flat & Intact -Granulation Amt Small (1-33%) -Granulation Quality Pale [place] -Slough/Fibrin Yes -Necrosis Amt Medium (34-66%) -Necrotic Tissue Type Adherent Slough -Structure Exposed None/Limited to Skin Breakdown -Texture (Daniel-wound Skin Appearance) Assessed Scarring -Moisture (Daniel-wound Skin Appearance Assessed ) Dry/Scaly -Color (Daniel-wound Skin Appearance) Assessed -Temperature (Daniel-wound Skin No Abnormality Appearance) (Pt Warm) -Tenderness on Palpation (Daniel-wound No Skin Appearance) -Ulcer Cleansing Rinsed/ Irrigated with Saline -Foul Odor after Cleansing No -Anesthetic Used 5% Lidocaine Gel WC - Nurse 2 - General Ulcer CM Notes Start: 03/13/18 08:45 Freq: Status: Active Protocol: Activity Type Activity Date Activity User E-Sign Co-Sign Detail Recorded Client Recorded Date Recorded By Document 04/03/18 09:34 KEILA [id number] 04/03/18 09:54 KEILA 04/03/18 09:34 Wound Center Nurse 2 [Procedure/Treatment] -Time 09:35 -Correct Patient Yes -Correct Side, Site, Position Yes -Correct Procedure Yes -Procedure Performed Yes -Type of Procedure Debridement -Clinical Debridement Subcutaneous -Post Debridement Size (cm) - Length 3.1 -Post Debridement Size (cm) - Width 1.1 -Post Debridement Size (cm) - Depth 0.2 -Total Square Cm 3.41 -Wound/Ulcer Outcome Not Healed -Ulcer Cleansing Rinsed/ Irrigated with Saline -Foul Odor after Cleansing No -Bioengineered Tissue Yes -Type of bioengineered Tissue EPIFIX -Expiration Date 12/08/22 -Product Lot Number [id number] -Percent Used 100 -Saline Lot Number [id number] -Topical Lidocaine (%) 4 -Lidocaine (ml) 5 -Bleeding Controlled with NA -Treatment Response Procedure Tolerated Well [See Physician Procedure note for Specifics] Pain Scale: 0-10 Numeric [Pain] -Is Patient Pain Free? Yes Musculoskeletal: No Muscle Wasting Neurological: Cranial nerves II-XII grossly intact, Neuro grossly intact Psych/Mental Status: Normal Affect, Appropriate, Alert and oriented to time, place, person, mood and affect Debridement Note Post-Debridement Measurements/Treatment WC - Nurse 2 - General Ulcer CM Notes Start: 03/13/18 08:45 Freq: Status: Active Protocol: Activity Type Activity Date Activity User E-Sign Co-Sign Detail Recorded Client Recorded Date Recorded By Document 03/13/18 09:08 JS [id number] 03/13/18 09:13 JS Document 03/20/18 10:38 JS [email or web address] 03/20/18 10:46 JS Document 03/27/18 10:45 CS [id number] 03/27/18 10:50 CS Document 04/03/18 09:34 JS [id number] 04/03/18 09:54 JS 03/13/18 03/20/18 03/27/18 09:08 10:38 10:45 Wound Center Nurse 2 #5 R Groin -Time 09:08 10:43 10:48 -Correct Patient Yes Yes Yes -Correct Side, Site, Position Yes Yes Yes -Correct Procedure Yes Yes Yes -Procedure Performed Yes Yes Yes -Type of Procedure Debridement Debridement Debridement -Clinical Debridement Subcutaneous Subcutaneous Subcutaneous -Post Debridement Size (cm) - Length 3.4 3.2 3.1 -Post Debridement Size (cm) - Width 0.9 0.9 1.0 -Post Debridement Size (cm) - Depth 0.3 0.2 0.3 -Total Square Cm 3.06 2.88 3.10 -Wound/Ulcer Outcome Not Healed Not Healed Not Healed -Ulcer Cleansing Rinsed/ Rinsed/ Not Cleansed Irrigated with Irrigated with Saline Saline -Foul Odor after Cleansing No No No -Bioengineered Tissue No Yes Yes -Type of bioengineered Tissue EPIFIX EPIFIX -Expiration Date 12/08/22 11/07/22 -Product Lot Number [id number] -Percent Used 100 100 -Saline Lot Number N/A [id number] -Topical Lidocaine (%) 4 -Lidocaine (ml) -Bleeding Controlled with NA NA NA -Treatment Response Procedure Procedure Procedure Tolerated Well Tolerated Well Tolerated Well Pain Scale: 0-10 Numeric Is Patient Pain Free? Yes Yes Yes 04/03/18 09:34 Wound Center Nurse 2 #5 R Groin -Time 09:35 -Correct Patient Yes -Correct Side, Site, Position Yes -Correct Procedure Yes -Procedure Performed Yes -Type of Procedure Debridement -Clinical Debridement Subcutaneous -Post Debridement Size (cm) - Length 3.1 -Post Debridement Size (cm) - Width 1.1 -Post Debridement Size (cm) - Depth 0.2 -Total Square Cm 3.41 -Wound/Ulcer Outcome Not Healed -Ulcer Cleansing Rinsed/ Irrigated with Saline -Foul Odor after Cleansing No -Bioengineered Tissue Yes -Type of bioengineered Tissue EPIFIX -Expiration Date 12/08/22 -Product Lot Number [id number] -Percent Used 100 -Saline Lot Number [id number] -Topical Lidocaine (%) 4 -Lidocaine (ml) 5 -Bleeding Controlled with NA -Treatment Response Procedure Tolerated Well Pain Scale: 0-10 Numeric Is Patient Pain Free? Yes Laterality: Right - Groin Type of Debridement: Excisional debridement Anesthesia Used: 4% Lidocaine Solution Depth: Down to and including healthy tissue, in the subcutaneous layer Percentage of wound debrided: 100 Instrument Used: 7mm curette Severity: Fat Layer Exposed Amount of bleeding with debridement: Mild Bleeding Controlled with: Compression and gauze Patient tolerated procedure well Following a standard excisional debridement, which was well-tolerated, an EpiFix allograft was applied topically. This represents the eighth such allograft application. Upon removal from its sterile packaging, the allograft was cut and oriented into the appropriate position. The wound veil and gauze were then placed. The site was then secured using Steri-Strips. The procedure was well-tolerated by the patient. Assessment/Plan Active Problems History of melanoma (Chronic) Ulcer of right groin (Chronic) Soft tissue radionecrosis (Chronic) soft tissue radiation injury (Chronic) Assessment: This is a 63-year-old female with a somewhat complicated and complex past medical history, documented above. In the 1969's, she was diagnosed with malignant melanoma of the right calf, with metastasis to lymph nodes in the right groin. She underwent excision of the melanoma with right groin lymphadenectomy. She was subsequently treated with a long series of radiation treatments to the right groin. During the days of her radiation treatment, it is suspected that the radiation techniques were somewhat early in their evolution, and quite likely that the patient received massive doses of radiation exposure, exceeding doses which would be considered appropriate today, with techniques which are primitive by today's standards. As result, the patient has developed soft tissue radiation injury, and has previously been treated at our wound center in the past with a series of approximately 90 hyperbaric oxygen therapy treatments, in 2011. She presented with recurrence of soft tissue radionecrosis in the right groin. Hyperbaric oxygen therapy treatments have been initiated, and the patient has undergone a series of nearly 90 hyperbaric oxygen treatment sessions. She has shown benefit from the hyperbaric oxygen treatments, which were felt to be clinically warranted, and in accordance with the patient's past history, in which wound healing was effected only after 90 such sessions. She has tolerated hyperbaric oxygen therapy well, without complaints or complications. She has completed her nearly 90 sessions of hyperbaric oxygen treatments. At this time, there is no clinical evidence of infection or cellulitis in the daniel-ulcer area. Clearly, the patient is responding very slowly to the variety of conventional treatment measures which have been implemented. However, in review of the patient's past history, such has been the case previously, as each treatment course has been rather protracted and lengthy in nature to achieve ultimate healing. Plan: The patient has been the recipient of 8 EpiFix applications as of today. Additional applications have been approved by the patient's insurance. Additional allograft applications are felt to be warranted, and recent approval from her insurance company has been granted. Recent cultures have been positive for Staphylococcus aureus and Corynebacterium stratum. Duricef 1 g p.o. twice daily for 10 days was prescribed. The patient has completed her course of Duricef. Patient will return in 1 week for reassessment. The patient is to continue with a nutritious diet. Additionally, consideration may be given in the future to biopsy of the ulcer and ulcer margins, given the patient's history of intense radiation to this area, and her relative lack of progress of healing. Preparations have been made to perform a punch biopsy of the ulcer margins today, but the patient refused, preferring to do it at a later date. In addition, we have discussed the possibility of seeking outside consultation with a plastic surgeon, perhaps that the [facility]. The patient is open to such consideration. Influenza vaccine was not administered today. The patient is not a smoker. She stands 5 feet 7 inches tall. She weighs 198 pounds. Her BMI is 31, which places her in a class I weight category. Weight loss has been recommended. She is to collaborate with her primary care physician in this regard.
--- NOTE | 2018-04-03 10:05 | HP.PCM_ITS ---
(1) History of uterine cancer Status: Chronic Current Visit: No Code(s): Z85.42 - Personal history of malignant neoplasm of other parts of uterus (2) History of melanoma Status: Chronic Current Visit: Yes Code(s): Z85.820 - Personal history of malignant melanoma of skin (3) Hyperlipidemia Status: Chronic Current Visit: No Code(s): E78.5 - Hyperlipidemia, unspecified (4) GERD (gastroesophageal reflux disease) Status: Chronic Current Visit: No Code(s): K21.9 - Gastro-esophageal reflux disease without esophagitis (5) Ulcer of right groin Status: Chronic Current Visit: Yes Qualifiers: Non-pressure ulcer stage: with fat layer exposed Code(s): L98.499 - Non-pressure chronic ulcer of skin of other sites with unspecified severity (6) Obesity (BMI 30.0-34.9) Status: Chronic Current Visit: No Code(s): E66.9 - Obesity, unspecified (7) Amputee, above knee Status: Chronic Current Visit: No Qualifiers: Laterality: right Code(s): Z89.619 - Acquired absence of unspecified leg above knee (8) Soft tissue radionecrosis Status: Chronic Current Visit: Yes Code(s): L59.8 - Other specified disorders of the skin and subcutaneous tissue related to radiation; Y84.2 - R adiological procedure and radiotherapy as the cause of abnormal reaction of the patient, or of later complication, without mention of misadventure at the time of the procedure (9) soft tissue radiation injury Status: Chronic Current Visit: Yes History of Present Illness Chief Complaint: 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 The patient underwent excision of her melanoma with lymphadenecto my in the right groin. She also underwent lengthy radiation treatments at the [facility] in [place], [place]. Melanoma recurred, and the patient was subsequently treated with monoclonal antibodies in 1984. 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 Treatment included local ulcer care and hyperbaric oxygen therapy. She underwent a total of nearly 90 treatments of hyperbaric oxygen therapy. It is known that she tolerated the therapies well, and derived significant benefit. She relates no history of claustrophobia, or other complications related to the hyperbaric oxygen therapy treatments. She has no history of barotrauma to lungs, ears, etc. Her medical history has been reviewed, without any evidence of contraindications to hyperbaric oxygen therapy. Hyperbaric oxygen therapy has been administered for nearly 90 treatment sessions. We are currently using EpiFix allografts, and she has undergone 7 applications thus far. The patient's history suggests that the right groin wound in the past responded to hyperbaric oxygen therapy, but required 90 such sessions. It appears as though the patient's current clinical course is mimicking that of the past, with wound healing which is very recalcitrant to conventional treatment measures. 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 She is undergone excision of melanoma from the right calf, with lymphadenectomy of the right groin in the 1969's. She subsequently required surgeries of the right thigh related to osteomyelitis, MRSA infection, and radiation injury to the right femoral artery. Ultimately, the patient required right above-knee amputation, performed in 2000. She also has a remote history of open reduction and internal fixation of a right ankle fracture. Allergies/Adverse Reactions: Allergies No Known Allergies Allergy (Verified 06/20/17 09:22) Home Medications: Ambulatory Orders Medication Instructions Recorded Famotidine 20 mg PO 06/20/17 Pravastatin [Pravachol] 20 mg PO DAILY 06/20/17 - Family History Maternal - - The patient's mother is 98 years of age and relatively healthy. The patient's father at age of 79 with a history of cardiomyopathy. Smoking Status: Former smoker Tobacco Use: Non-smoker Review of Systems Constitutional: Denies: Chills, Fever, Weight Change Eyes: Denies: Pain, Vision Change HEENT: Denies: Difficulty Hearing, Difficulty Swallowing, Sinus Congestion Cardiovascular: Denies: Chest Pain, Palpitations Respiratory: Denies: Cough, Shortness of Breath Gastrointestinal: Denies: Diarrhea, Nausea, Vomiting Genitourinary: Denies: Dysuria, Hematuria Endocrine: Denies: Heat/ Cold Intolerance, Polydipsia, Polyuria Hematologic/ Lymphatic: Denies: Easy Bruising, Easy Bleeding - Physical Exam Vital Signs Temp Pulse Resp BP 96.4 F L 86 16 167/97 H 04/03/18 08:56 04/03/18 08:56 04/03/18 08:56 04/03/18 08:56 General: Alert, Oriented x3, Cooperative, No apparent distress, Well developed, Well nourished HEENT: Atraumatic, PERRLA, EOMI, Normocephalic Oral: Moist Mucosa Neck: No JVD Lungs: Normal air movement Abdomen: Non-Distended Extremities: No clubbing, No cyanosis, No edema, No Calf Tenderness, - - A well- healed right above-knee amputation stump is noted. The chronic ulceration in the right groin persists, though appears to be slightly more superficial. There is evidence of healthy granulation tissue. There is a moderate amount of bioburden. Ulcer dimensions are documented elsewhere. There is no sign of infection or cellulitis. Skin: No rashes, No breakdown Wound Measurements and Assessment WC - Nurse 1 - General Ulcer Measurement Start: 03/13/18 08:45 Freq: Status: Active Protocol: Activity Type Activity Date Activity User E-Sign Co-Sign Detail Recorded Client Recorded Date Recorded By Document 04/03/18 08:56 DV [id number] 04/03/18 09:07 DV 04/03/18 08:56 Wound Center Nurse 1 [Ulcer Assessment] #5 R Groin -Combined with other wound No -Current Size (cm) - Length 3.1 -Current Size (cm) - Width 1.0 -Current Size (cm) - Depth 0.2 -Total Square Cm 3.10 -Photo Taken No -Epithelialization Small 1-33% -Tunneling No -Undermining/Tunneling No -Circular Undermining No -Classification - Thickness Full Thickness without Exposed Support Structure -Exudate Amt Small (1-33%) -Exudate Type Serous -Wound Margin Flat & Intact -Granulation Amt Small (1-33%) -Granulation Quality Pale [place] -Slough/Fibrin Yes -Necrosis Amt Medium (34-66%) -Necrotic Tissue Type Adherent Slough -Structure Exposed None/Limited to Skin Breakdown -Texture (Daniel-wound Skin Appearance) Assessed Scarring -Moisture (Daniel-wound Skin Appearance Assessed ) Dry/Scaly -Color (Daniel-wound Skin Appearance) Assessed -Temperature (Daniel-wound Skin No Abnormality Appearance) (Pt Warm) -Tenderness on Palpation (Daniel-wound No Skin Appearance) -Ulcer Cleansing Rinsed/ Irrigated with Saline -Foul Odor after Cleansing No -Anesthetic Used 5% Lidocaine Gel WC - Nurse 2 - General Ulcer CM Notes Start: 03/13/18 08:45 Freq: Status: Active Protocol: Activity Type Activity Date Activity User E-Sign Co-Sign Detail Recorded Client Recorded Date Recorded By Document 04/03/18 09:34 [id number] 04/03/18 09:54 [email or web address] 04/03/18 09:34 Wound Center Nurse 2 [Procedure/Treatment] -Time 09:35 -Correct Patient Yes -Correct Side, Site, Position Yes -Correct Procedure Yes -Procedure Performed Yes -Type of Procedure Debridement -Clinical Debridement Subcutaneous -Post Debridement Size (cm) - Length 3.1 -Post Debridement Size (cm) - Width 1.1 -Post Debridement Size (cm) - Depth 0.2 -Total Square Cm 3.41 -Wound/Ulcer Outcome Not Healed -Ulcer Cleansing Rinsed/ Irrigated with Saline -Foul Odor after Cleansing No -Bioengineered Tissue Yes -Type of bioengineered Tissue EPIFIX -Expiration Date 12/08/22 -Product Lot Number [id number] -Percent Used 100 -Saline Lot Number [id number] -Topical Lidocaine (%) 4 -Lidocaine (ml) 5 -Bleeding Controlled with NA -Treatment Response Procedure Tolerated Well [See Physician Procedure note for Specifics] Pain Scale: 0-10 Numeric [Pain] -Is Patient Pain Free? Yes Musculoskeletal: No Muscle Wasting Neurological: Cranial nerves II-XII grossly intact, Neuro grossly intact Psych/Mental Status: Normal Affect, Appropriate, Alert and oriented to time, place, person, mood and affect Debridement Note Post-Debridement Measurements/Treatment WC - Nurse 2 - General Ulcer CM Notes Start: 03/13/18 08:45 Freq: Status: Active Protocol: Activity Type Activity Date Activity User E-Sign Co-Sign Detail Recorded Client Recorded Date Recorded By Document 03/13/18 09:08 [id number] 03/13/18 09:13 JS Document 03/20/18 10:38 JS [id number] 03/20/18 10:46 JS Document 03/27/18 10:45 [email or web address] 03/27/18 10:50 CS Document 04/03/18 09:34 JS [id number] 04/03/18 09:54 JS 03/13/18 03/20/18 03/27/18 09:08 10:38 10:45 Wound Center Nurse 2 #5 R Groin -Time 09:08 10:43 10:48 -Correct Patient Yes Yes Yes -Correct Side, Site, Position Yes Yes Yes -Correct Procedure Yes Yes Yes -Procedure Performed Yes Yes Yes -Type of Procedure Debridement Debridement Debridement -Clinical Debridement Subcutaneous Subcutaneous Subcutaneous -Post Debridement Size (cm) - Length 3.4 3.2 3.1 -Post Debridement Size (cm) - Width 0.9 0.9 1.0 -Post Debridement Size (cm) - Depth 0.3 0.2 0.3 -Total Square Cm 3.06 2.88 3.10 -Wound/Ulcer Outcome Not Healed Not Healed Not Healed -Ulcer Cleansing Rinsed/ Rinsed/ Not Cleansed Irrigated with Irrigated with Saline Saline -Foul Odor after Cleansing No No No -Bioengineered Tissue No Yes Yes -Type of bioengineered Tissue EPIFIX EPIFIX -Expiration Date 12/08/22 11/07/22 -Product Lot Number [id number] -Percent Used 100 100 -Saline Lot Number N/A [id number] -Topical Lidocaine (%) 4 -Lidocaine (ml) -Bleeding Controlled with NA NA NA -Treatment Response Procedure Procedure Procedure Tolerated Well Tolerated Well Tolerated Well Pain Scale: 0-10 Numeric Is Patient Pain Free? Yes Yes Yes 04/03/18 09:34 Wound Center Nurse 2 #5 R Groin -Time 09:35 -Correct Patient Yes -Correct Side, Site, Position Yes -Correct Procedure Yes -Procedure Performed Yes -Type of Procedure Debridement -Clinical Debridement Subcutaneous -Post Debridement Size (cm) - Length 3.1 -Post Debridement Size (cm) - Width 1.1 -Post Debridement Size (cm) - Depth 0.2 -Total Square Cm 3.41 -Wound/Ulcer Outcome Not Healed -Ulcer Cleansing Rinsed/ Irrigated with Saline -Foul Odor after Cleansing No -Bioengineered Tissue Yes -Type of bioengineered Tissue EPIFIX -Expiration Date 12/08/22 -Product Lot Number [id number] -Percent Used 100 -Saline Lot Number [id number] -Topical Lidocaine (%) 4 -Lidocaine (ml) 5 -Bleeding Controlled with NA -Treatment Response Procedure Tolerated Well Pain Scale: 0-10 Numeric Is Patient Pain Free? Yes Laterality: Right - Groin Type of Debridement: Excisional debridement Anesthesia Used: 4% Lidocaine Solution Depth: Down to and including healthy tissue, in the subcutaneous layer Percentage of wound debrided: 100 Instrument Used: 7mm curette Severity: Fat Layer Exposed Amount of bleeding with debridement: Mild Bleeding Controlled with: Compression and gauze Patient tolerated procedure well Following a standard excisional debridement, which was well-tolerated, an EpiFix allograft was applied topically. This represents the eighth such allograft application. Upon removal from its sterile packaging, the allograft was cut and oriented into the appropriate position. The wound veil and gauze were then placed. The site was then secured using Steri-Strips. The procedure was well- tolerated by the patient. Assessment/Plan Active Problems History of melanoma (Chronic) Ulcer of right groin (Chronic) Soft tissue radionecrosis (Chronic) soft tissue radiation injury (Chronic) Assessment: This is a 63-year-old female with a somewhat complicated and complex past medical history, documented above. In the 1969's, she was diagnosed with malignant melanoma of the right calf, with metastasis to lymph nodes in the right groin. She underwent excision of the melanoma with right groin lymphadenectomy. She was subsequently treated with a long series of radiation treatments to the right groin. During the days of her radiation treatment, it is suspected that the radiation techniques were somewhat early in their evolution, and quite likely that the patient received massive doses of radiation exposure, exceeding doses which would be considered appropriate today, with techniques which are primitive by today's standards. As result, the patient has developed soft tissue radiation injury, and has previously been treated at our wound center in the past with a series of approximately 90 hyperbaric oxygen therapy treatments, in 2011. She presented with recurrence of soft tissue radionecrosis in the right groin. Hyperbaric oxygen therapy treatments have been initiated, and the patient has undergone a series of nearly 90 hyperbaric oxygen treatment sessions. She has shown benefit from the hyperbaric oxygen treatments, which were felt to be clinically warranted, and in accordance with the patient's past history, in which wound healing was effected only after 90 such sessions. She has tolerated hyperbaric oxygen therapy well, without complaints or complications. She has completed her nearly 90 sessions of hyperbaric oxygen treatments. At this time, there is no clinical evidence of infection or cellulitis in the daniel-ulcer area. Clearly, the patient is responding very slowly to the variety of conventional treatment measures which have been implemented. However, in review of the patient's past history, such has been the case previously, as each treatment course has been rather protracted and lengthy in nature to achieve ultimate healing. Plan: The patient has been the recipient of 8 EpiFix applications as of today. Additional applications have been approved by the patient's insurance. Additional allograft applications are felt to be warranted, and recent approval from her insurance company has been granted. Recent cultures have been positive for Staphylococcus aureus and Corynebacterium stratum. Duricef 1 g p.o. twice daily for 10 days was prescribed. The patient has completed her course of Duricef. Patient will return in 1 week for reassessment. The patient is to continue with a nutritious diet. Additionally, consideration may be given in the future to biopsy of the ulcer and ulcer margins, given the patient's history of intense radiation to this area, and her relative lack of progress of healing. Preparations have been made to perform a punch biopsy of the ulcer margins today, but the patient refused, preferring to do it at a later date. In addition, we have discussed the possibility of seeking outside consultation with a plastic surgeon, perhaps that the [facility]. The patient is open to such consideration. Influenza vaccine was not administered today. The patient is not a smoker. She stands 5 feet 7 inches tall. She weighs 198 pounds. Her BMI is 31, which places her in a class I weight category. Weight loss has been recommended. She is to collaborate with her primary care physician in this regard.
== END 2018-04-08 23:59 ==
LOC: WC 08:45
PROVIDERS: Family Provider Family Medicine; PCP Family Medicine; Visit Provider Surgery
DX: L59.8 Other specified disorders of the skin and subcutaneous tissue related to radiation (principal); Y84.2 Radiological procedure and radiotherapy as the cause of abnormal reaction of the patient, or of later complication, without mention of misadventure at the time of the procedure; K21.9 Gastro-esophageal reflux disease without esophagitis; E78.5 Hyperlipidemia, unspecified; Z85.820 Personal history of malignant melanoma of skin; Z85.42 Personal history of malignant neoplasm of other parts of uterus; Z87.891 Personal history of nicotine dependence; Z89.619 Acquired absence of unspecified leg above knee; L98.492 Non-pressure chronic ulcer of skin of other sites with fat layer exposed
CPT/HCPCS: 11042; 15271; 99213; Q4131; G0463

== ENCOUNTER 2018-05-01 08:00 | Outpatient (RCR) | payer OTHER, SELFPAY ==
[2018-04-09 00:40] VITALS: BP 167/97; PULSE 86; RESP 16; TEMP 35.8; BMI 68.3
[2018-04-10 08:11] VITALS: BP 145/78; PULSE 86; RESP 18; TEMP 35.9; BMI 68.3
--- NOTE | 2018-04-10 08:30 | UL_PTH ---
PATIENT: DAMIEN ANDRADE LOC: U#:[id number] AGE/SX: 63/F ROOM: RE05/01/[address]: Dr. Bassam De Jesus MD : 1955 BED: DIS: 05/09/2018 SPEC #: [id number] RECD: 04/10/18 15:35 STATUS: EMMETT TYLER #: [id number] SIOBHAN: 04/10/18 08:[address]: Bassam De Jesus DEPT: SURGICAL PATHOLOGY RECD BY: Paulie Dolan ENTERED: 04/11/18 09:07 SP TYPE: ULCER OTHR DR: Dr. Quinn Cruz MD Tissues: ULCER Procedures: Surgery Specimen Level IV HEADER OPERATION: Biopsy of right groin x2 PRE-OP DIAGNOSIS: Nonhealing right groin ulcer, history of radiation TISSUE SUBMITTED: Right lateral edge inferior skin, right lateral edge superior skin MICROSCOPIC DIAGNOSIS Right groin x2, biopsy: Pieces of skin with focal ulceration, fibrosis and chronic inflammation. Negative for malignancy. HITESH:kaylie 04/12/18 MICROSCOPIC DESCRIPTION Slides are reviewed. GROSS DESCRIPTION Received in fixative is one container labeled with the patient's name and designated right groin x2. The specimen consists of a punch biopsy of zhao-white skin measuring 0.4 cm in length and 0.5 cm in diameter. Also present in the container is a piece of zhao-white skin measuring 0.7 x 0.5 x 0.2 cm. The entire specimen is submitted in one cassette. / HITESH:kaylie 04/11/18 TC:3 CPT: 26848
--- NOTE | 2018-04-10 08:49 | HP.PCM_ITS ---
(1) History of uterine cancer Status: Chronic Current Visit: No Code(s): Z85.42 - Personal history of malignant neoplasm of other parts of uterus (2) History of melanoma Status: Chronic Current Visit: Yes Code(s): Z85.820 - Personal history of malignant melanoma of skin (3) Hyperlipidemia Status: Chronic Current Visit: No Code(s): E78.5 - Hyperlipidemia, unspecified (4) GERD (gastroesophageal reflux disease) Status: Chronic Current Visit: No Code(s): K21.9 - Gastro-esophageal reflux disease without esophagitis (5) Ulcer of right groin Status: Chronic Current Visit: Yes Qualifiers: Non-pressure ulcer stage: with fat layer exposed Code(s): L98.499 - Non-pressure chronic ulcer of skin of other sites with unspecified severity (6) Obesity (BMI 30.0-34.9) Status: Chronic Current Visit: No Code(s): E66.9 - Obesity, unspecified (7) Amputee, above knee Status: Chronic Current Visit: Yes Qualifiers: Laterality: right Code(s): Z89.619 - Acquired absence of unspecified leg above knee (8) Soft tissue radionecrosis Status: Chronic Current Visit: Yes Code(s): L59.8 - Other specified disorders of the skin and subcutaneous tissue related to radiation; Y84.2 - Radiological procedure and radiotherapy as the cause of abnormal reaction of the patient, or of later complication, without mention of misadventure at the time of the procedure (9) soft tissue radiation injury Status: Chronic Current Visit: Yes History of Present Illness Chief Complaint: 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 The patient underwent excision of her melanoma with lymphadenect sharmaine in the right groin. She also underwent lengthy radiation treatments at the [facility] in [place], [place]. Melanoma recurred, and the patient was subsequently treated with monoclonal antibodies in 1984. 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 Treatment included local ulcer care and hyperbaric oxygen therapy. She underwent a total of nearly 90 treatments of hyperbaric oxygen therapy. It is known that she tolerated the therapies well, and derived significant benefit. She relates no history of claustrophobia, or other complications related to the hyperbaric oxygen therapy treatments. She has no history of barotrauma to lungs, ears, etc. Her medical history has been reviewed, without any evidence of contraindications to hyperbaric oxygen therapy. Hyperbaric oxygen therapy has been administered for nearly 90 treatment sessions. We are currently using EpiFix allografts, and she has undergone 7 applications thus far. The patient's history suggests that the right groin wound in the past responded to hyperbaric oxygen therapy, but required 90 such sessions. It appears as though the patient's current clinical course is mimicking that of the past, with wound healing which is very recalcitrant to conventional treatment measures. 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 She is undergone excision of melanoma from the right calf, with lymphadenectomy of the right groin in the 1969's. She subsequently required surgeries of the right thigh related to osteomyelitis, MRSA infection, and radiation injury to the right femoral artery. Ultimately, the patient required right above-knee amputation, performed in 2000. She also has a remote history of open reduction and internal fixation of a right ankle fracture. Allergies/Adverse Reactions: Allergies No Known Allergies Allergy (Verified 06/20/17 09:22) Home Medications: Ambulatory Orders Medication Instructions Recorded Famotidine 20 mg PO 06/20/17 Pravastatin [Pravachol] 20 mg PO DAILY 06/20/17 - Family History Maternal - - The patient's mother is 98 years of age and relatively healthy. The patient's father at age of 79 with a history of cardiomyopathy. Smoking Status: Former smoker Tobacco Use: Non-smoker Review of Systems Constitutional: Denies: Chills, Fever, Weight Change Eyes: Denies: Pain, Vision Change HEENT: Denies: Difficulty Hearing, Difficulty Swallowing, Sinus Congestion Cardiovascular: Denies: Chest Pain, Palpitations Respiratory: Denies: Cough, Shortness of Breath Gastrointestinal: Denies: Diarrhea, Nausea, Vomiting Genitourinary: Denies: Dysuria, Hematuria Endocrine: Denies: Heat/ Cold Intolerance, Polydipsia, Polyuria Hematologic/ Lymphatic: Denies: Easy Bruising, Easy Bleeding - Physical Exam Vital Signs Temp Pulse Resp BP 96.6 F L 86 18 145/78 H 04/10/18 08:11 04/10/18 08:11 04/10/18 08:11 04/10/18 08:11 General: Alert, Oriented x3, Cooperative, No apparent distress, Well developed, Well nourished HEENT: Atraumatic, PERRLA, EOMI, Normocephalic Oral: Moist Mucosa Neck: No JVD Lungs: Normal air movement Abdomen: Non-Distended Extremities: No clubbing, No cyanosis, No edema, No Calf Tenderness, - - A well- healed right above-knee amputation stump is noted. The ulceration in the right groin is relatively unchanged. No sign of infection or cellulitis. There is a moderate amount of bioburden. Dimensions are documented elsewhere. There is increasing granulation tissue at the base. Skin: No rashes Wound Measurements and Assessment WC - Nurse 1 - General Ulcer Measurement Start: 04/10/18 08:11 Freq: Status: Active Protocol: Activity Type Activity Date Activity User E-Sign Co-Sign Detail Recorded Client Recorded Date Recorded By Document 04/10/18 08:11 [id number] 04/10/18 08:16 04/10/18 08:11 Wound Center Nurse 1 [Ulcer Assessment] #5 R Groin -Combined with other wound No -Current Size (cm) - Length 3.1 -Current Size (cm) - Width 1.1 -Current Size (cm) - Depth 0.2 -Total Square Cm 3.41 -Photo Taken No -Epithelialization Medium 34-66% -Tunneling No -Undermining/Tunneling No -Circular Undermining No -Exudate Amt Small (1-33%) -Exudate Type Serosanguineous -Wound Margin Flat & Intact -Granulation Amt Large (67-100%) -Granulation Quality Red -Slough/Fibrin Yes -Necrosis Amt Small (1-33%) -Necrotic Tissue Type Adherent Slough -Structure Exposed N/A -Texture (Daniel-wound Skin Appearance) Assessed Scarring -Moisture (Daniel-wound Skin Appearance Assessed ) Dry/Scaly -Color (Daniel-wound Skin Appearance) Assessed -Temperature (Daniel-wound Skin No Abnormality Appearance) (Pt Warm) -Tenderness on Palpation (Daniel-wound No Skin Appearance) -Ulcer Cleansing Rinsed/ Irrigated with Saline -Foul Odor after Cleansing No -Anesthetic Used 4% Lidocaine Solution [Edema Assessment] -Lower Limb Edema Present NA - Nurse 2 - General Ulcer CM Notes Start: 04/10/18 08:11 Freq: Status: Active Protocol: Activity Type Activity Date Activity User E-Sign Co-Sign Detail Recorded Client Recorded Date Recorded By Document 04/10/18 08:37 DV [id number] 04/10/18 08:41 DV 04/10/18 08:37 Wound Center Nurse 2 [Procedure/Treatment] #5 R Groin -Time 08:41 -Correct Patient Yes -Correct Side, Site, Position Yes -Correct Procedure Yes -Procedure Performed Yes -Type of Procedure Debridement -Clinical Debridement Subcutaneous -Post Debridement Size (cm) - Length 3.3 -Post Debridement Size (cm) - Width 1.0 -Post Debridement Size (cm) - Depth 0.2 -Total Square Cm 3.30 -Wound/Ulcer Outcome Not Healed -Ulcer Cleansing Rinsed/ Irrigated with Saline -Foul Odor after Cleansing No -Bioengineered Tissue No -Bleeding Controlled with Pressure -Other biopsy x2 -Treatment Response Procedure Tolerated Well [See Physician Procedure note for Specifics] Pain Scale: 0-10 Numeric [Pain] -Is Patient Pain Free? Yes Musculoskeletal: No Muscle Wasting Neurological: Cranial nerves II-XII grossly intact, Neuro grossly intact Psych/Mental Status: Normal Affect, Appropriate, Alert and oriented to time, place, person, mood and affect Debridement Note Post-Debridement Measurements/Treatment - Nurse 2 - General Ulcer CM Notes Start: 04/10/18 08:11 Freq: Status: Active Protocol: Activity Type Activity Date Activity User E-Sign Co-Sign Detail Recorded Client Recorded Date Recorded By Document 04/10/18 08:37 DV [id number] 04/10/18 08:41 DV 04/10/18 08:37 Wound Center Nurse 2 #5 R Groin -Time 08:41 -Correct Patient Yes -Correct Side, Site, Position Yes -Correct Procedure Yes -Procedure Performed Yes -Type of Procedure Debridement -Clinical Debridement Subcutaneous -Post Debridement Size (cm) - Length 3.3 -Post Debridement Size (cm) - Width 1.0 -Post Debridement Size (cm) - Depth 0.2 -Total Square Cm 3.30 -Wound/Ulcer Outcome Not Healed -Ulcer Cleansing Rinsed/ Irrigated with Saline -Foul Odor after Cleansing No -Bioengineered Tissue No -Bleeding Controlled with Pressure -Other biopsy x2 -Treatment Response Procedure Tolerated Well Pain Scale: 0-10 Numeric Is Patient Pain Free? Yes Laterality: Right - Groin Type of Debridement: Excisional debridement Anesthesia Used: 4% Lidocaine Solution Depth: Down to and including healthy tissue, in the subcutaneous layer Percentage of wound debrided: 100 Instrument Used: 7mm curette Severity: Fat Layer Exposed Amount of bleeding with debridement: Mild Bleeding Controlled with: Compression and gauze Patient tolerated procedure well Following a standard excisional debridement, which was well-tolerated. Biopsies were obtained. Initially, lidocaine 2% with epinephrine was injected at the margin of the ulceration. A sterile 5 mm punch biopsy instrument was then used to obtain 2 tissue specimens at the lateral margin of the ulceration. The biopsy specimens were harvested using the 5 mm punch biopsy instrument and a forceps and cuticle scissors. 2 specimens were obtained, and placed within formalin, to be sent to the pathology department for histological examination. Manual pressure easily controlled bleeding from the site. 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 In the 1970's, she was diagnosed with malignant melanoma of the right calf, with metastasis to lymph nodes in the right groin. She underwent excision of the melanoma with right groin lymphadenectomy. She was subsequently treated with a long series of radiation treatments to the right groin. During the days of her radiation treatment, it is suspected that the radiation techniques were somewhat early in their evolution, and quite likely that the patient received massive doses of radiation exposure, exceeding doses which would be considered appropriate today, with techniques which are primitive by today's standards. As result, the patient has developed soft tissue radiation injury, and has previously been treated at our wound center in the past with a series of approximately 90 hyperbaric oxygen therapy treatments, in 2011. She presented with recurrence of soft tissue radionecrosis in the right groin. Hyperbaric oxygen therapy treatments have been initiated, and the patient has undergone a series of nearly 90 hyperbaric oxygen treatment sessions. She has shown benefit from the hyperbaric oxygen treatments, which were felt to be clinically warranted, and in accordance with the patient's past history, in which wound healing was effected only after 90 such sessions. She has tolerated hyperbaric oxygen therapy well, without complaints or complications. She has completed her nearly 90 sessions of hyperbaric oxygen treatments. At this time, there is no clinical evidence of infection or cellulitis in the daniel-ulcer area. Clearly, the patient is responding very slowly to the variety of conventional treatment measures which have been implemented. However, in review of the patient's past history, such has been the case previously, as each treatment course has been rather protracted and lengthy in nature to achieve ultimate healing. Plan: The patient has been the recipient of 8 EpiFix applications. Additional applications have been approved by the patient's insurance. Additional allograft applications are felt to be warranted, and recent approval from her insurance company has been granted. Recent cultures have been positive for Staphylococcus aureus and Corynebacterium stratum. Duricef 1 g p.o. twice daily for 10 days was prescribed. The patient has completed her course of Duricef. Patient will return in 1 week for reassessment. The patient is to continue with a nutritious diet. Biopsies of the ulceration have been obtained, and the results will be awaited. Biopsies were obtained due to history of extreme radiation to this area, and a lack of healing progress and recent weeks and months. The goal is to exclude the possibility of malignancy. We have discussed the possibility of seeking outside consultation with a plastic surgeon, perhaps that the [facility]. The patient is open to such consideration. Over the next week, the patient is to apply Mary topically to the ulceration of the right groin, and will return in 1 week for reassessment. Influenza vaccine was not administered today. The patient is not a smoker. She stands 5 feet 7 inches tall. She weighs 198 pounds. Her BMI is 31, which places her in a class I weight category. Weight loss has been recommended. She is to collaborate with her primary care physician in this regard.
[2018-04-17 08:13] VITALS: BP 140/95; PULSE 91; RESP 16; TEMP 36.3; BMI 68.3
--- NOTE | 2018-04-17 08:48 | PCM.WC.HP ---
(1) History of uterine cancer Status: Chronic Current Visit: No Code(s): Z85.42 - Personal history of malignant neoplasm of other parts of uterus (2) History of melanoma Status: Chronic Current Visit: Yes Code(s): Z85.820 - Personal history of malignant melanoma of skin (3) Hyperlipidemia Status: Chronic Current Visit: No Code(s): E78.5 - Hyperlipidemia, unspecified (4) GERD (gastroesophageal reflux disease) Status: Chronic Current Visit: No Code(s): K21.9 - Gastro-esophageal reflux disease without esophagitis (5) Ulcer of right groin Status: Chronic Current Visit: Yes Qualifiers: Non-pressure ulcer stage: with fat layer exposed Code(s): L98.499 - Non-pressure chronic ulcer of skin of other sites with unspecified severity (6) Obesity (BMI 30.0-34.9) Status: Chronic Current Visit: No Code(s): E66.9 - Obesity, unspecified (7) Amputee, above knee Status: Chronic Current Visit: Yes Qualifiers: Laterality: right Code(s): Z89.619 - Acquired absence of unspecified leg above knee (8) Soft tissue radionecrosis Status: Chronic Current Visit: Yes Code(s): L59.8 - Other specified disorders of the skin and subcutaneous tissue related to radiation; Y84.2 - Radiological procedure and radiotherapy as the cause of abnormal reaction of the patient, or of later complication, without mention of misadventure at the time of the procedure (9) soft tissue radiation injury Status: Chronic Current Visit: Yes History of Present Illness Chief Complaint: 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 The patient underwent excision of her melanoma with lymphadenectomy in the right groin. She also underwent lengthy radiation treatments at the [facility] in [place], [place]. Melanoma recurred, and the patient was subsequently treated with monoclonal antibodies in 1984. 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 In 2012, the patient was treated in our wound center for ulcerations of the right upper thigh and groin related to soft tissue radiation necrosis. Treatment included local ulcer care and hyperbaric oxygen therapy. She underwent a total of nearly 90 treatments of hyperbaric oxygen therapy. It is known that she tolerated the therapies well, and derived significant benefit. She relates no history of claustrophobia, or other complications related to the hyperbaric oxygen therapy treatments. She has no history of barotrauma to lungs, ears, etc. Her medical history has been reviewed, without any evidence of contraindications to hyperbaric oxygen therapy. Hyperbaric oxygen therapy has been administered for nearly 90 treatment sessions. We are currently using EpiFix allografts, and she has undergone 8 applications thus far. The patient's history suggests that the right groin wound in the past responded to hyperbaric oxygen therapy, but required 90 such sessions. It appears as though the patient's current clinical course is mimicking that of the past, with wound healing which is very recalcitrant to conventional treatment measures. 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 She is undergone excision of melanoma from the right calf, with lymphadenectomy of the right groin in the 1969's. She subsequently required surgeries of the right thigh related to osteomyelitis, MRSA infection, and radiation injury to the right femoral artery. Ultimately, the patient required right above-knee amputation, performed in 2000. She also has a remote history of open reduction and internal fixation of a right ankle fracture. Allergies/Adverse Reactions: Allergies No Known Allergies Allergy (Verified 06/20/17 09:22) Home Medications: Ambulatory Orders Medication Instructions Recorded Famotidine 20 mg PO 06/20/17 Pravastatin [Pravachol] 20 mg PO DAILY 06/20/17 - Family History Maternal - - The patient's mother is 98 years of age and relatively healthy. The patient's father at age of 79 with a history of cardiomyopathy. Smoking Status: Former smoker Tobacco Use: Non-smoker Review of Systems Constitutional: Denies: Chills, Fever, Weight Change Eyes: Denies: Pain, Vision Change HEENT: Denies: Difficulty Hearing, Difficulty Swallowing, Sinus Congestion Cardiovascular: Denies: Chest Pain, Palpitations Respiratory: Denies: Cough, Shortness of Breath Gastrointestinal: Denies: Diarrhea, Nausea, Vomiting Genitourinary: Denies: Dysuria, Hematuria Endocrine: Denies: Heat/ Cold Intolerance, Polydipsia, Polyuria Hematologic/ Lymphatic: Denies: Easy Bruising, Easy Bleeding - Physical Exam Vital Signs Temp Pulse Resp BP 97.3 F L 91 16 140/95 H 04/17/18 08:13 04/17/18 08:13 04/17/18 08:13 04/17/18 08:13 General: Alert, Oriented x3, Cooperative, No apparent distress, Well developed, Well nourished HEENT: Atraumatic, PERRLA, EOMI, Normocephalic Oral: Moist Mucosa Neck: No JVD Lungs: Normal air movement Abdomen: Non-Distended Extremities: No clubbing, No cyanosis, No edema, No Calf Tenderness, - - The ulceration on the right groin persists, with little change in appearance. Dimensions are documented elsewhere. There is a small amount of bioburden. There is no sign of infection or cellulitis. There is evidence of active granulation. A well-healed right above-knee amputation stump is noted. Skin: No rashes Wound Measurements and Assessment WC - Nurse 1 - General Ulcer Measurement Start: 04/10/18 08:11 Freq: Status: Active Protocol: Activity Type Activity Date Activity User E-Sign Co-Sign Detail Recorded Client Recorded Date Recorded By Document 04/17/18 08:13 [id number] 04/17/18 08:18 04/17/18 08:13 Wound Center Nurse 1 [Ulcer Assessment] #5 R Groin -Combined with other wound No -Current Size (cm) - Length 3.5 -Current Size (cm) - Width 1.0 -Current Size (cm) - Depth 0.4 -Total Square Cm 3.50 -Photo Taken No -Epithelialization Small 1-33% -Tunneling No -Undermining/Tunneling No -Circular Undermining No -Exudate Amt Small (1-33%) -Exudate Type Serosanguineous -Wound Margin Flat & Intact -Granulation Amt Medium (34-66%) -Granulation Quality Red -Slough/Fibrin Yes -Necrosis Amt Small (1-33%) -Necrotic Tissue Type Adherent Slough -Structure Exposed N/A -Texture (Daniel-wound Skin Appearance) Assessed Scarring -Moisture (Daniel-wound Skin Appearance Assessed ) Dry/Scaly -Color (Daniel-wound Skin Appearance) Assessed -Temperature (Daniel-wound Skin No Abnormality Appearance) (Pt Warm) -Tenderness on Palpation (Daniel-wound No Skin Appearance) -Ulcer Cleansing Rinsed/ Irrigated with Saline -Foul Odor after Cleansing No -Anesthetic Used 4% Lidocaine Solution [Edema Assessment] -Lower Limb Edema Present NA - Nurse 2 - General Ulcer CM Notes Start: 04/10/18 08:11 Freq: Status: Active Protocol: Activity Type Activity Date Activity User E-Sign Co-Sign Detail Recorded Client Recorded Date Recorded By Document 04/17/18 08:23 KEILA [id number] 04/17/18 08:38 KEILA 04/17/18 08:23 Wound Center Nurse 2 [Procedure/Treatment] #5 R Groin -Time 08:23 -Correct Patient Yes -Correct Side, Site, Position Yes -Correct Procedure Yes -Procedure Performed Yes -Type of Procedure Debridement -Clinical Debridement Subcutaneous -Post Debridement Size (cm) - Length 3.6 -Post Debridement Size (cm) - Width 1.1 -Post Debridement Size (cm) - Depth 0.4 -Total Square Cm 3.96 -Wound/Ulcer Outcome Not Healed -Ulcer Cleansing Rinsed/ Irrigated with Saline -Foul Odor after Cleansing No -Bioengineered Tissue Yes -Type of bioengineered Tissue EPIFIX -Expiration Date 12/08/22 -Product Lot Number [id number] -Percent Used 100 -Saline Lot Number NA -Topical Lidocaine (%) 4 -Lidocaine (ml) 5 -Bleeding Controlled with NA -Treatment Response Procedure Tolerated Well [See Physician Procedure note for Specifics] Pain Scale: 0-10 Numeric [Pain] -Is Patient Pain Free? Yes Musculoskeletal: No Muscle Wasting Neurological: Cranial nerves II-XII grossly intact, Neuro grossly intact Psych/Mental Status: Normal Affect, Appropriate, Alert and oriented to time, place, person, mood and affect Debridement Note Post-Debridement Measurements/Treatment WC - Nurse 2 - General Ulcer CM Notes Start: 04/10/18 08:11 Freq: Status: Active Protocol: Activity Type Activity Date Activity User E-Sign Co-Sign Detail Recorded Client Recorded Date Recorded By Document 04/10/18 08:37 DV [id number] 04/10/18 08:41 DV Document 04/17/18 08:23 JS [id number] 04/17/18 08:38 JS 04/10/18 04/17/18 08:37 08:23 Wound Center Nurse 2 #5 R Groin -Time 08:41 08:23 -Correct Patient Yes Yes -Correct Side, Site, Position Yes Yes -Correct Procedure Yes Yes -Procedure Performed Yes Yes -Type of Procedure Debridement Debridement -Clinical Debridement Subcutaneous Subcutaneous -Post Debridement Size (cm) - Length 3.3 3.6 -Post Debridement Size (cm) - Width 1.0 1.1 -Post Debridement Size (cm) - Depth 0.2 0.4 -Total Square Cm 3.30 3.96 -Wound/Ulcer Outcome Not Healed Not Healed -Ulcer Cleansing Rinsed/ Rinsed/ Irrigated with Irrigated with Saline Saline -Foul Odor after Cleansing No No -Bioengineered Tissue No Yes -Type of bioengineered Tissue EPIFIX -Expiration Date 12/08/22 -Product Lot Number [id number] -Percent Used 100 -Saline Lot Number NA -Topical Lidocaine (%) 4 -Lidocaine (ml) 5 -Bleeding Controlled with Pressure NA -Other biopsy x2 -Treatment Response Procedure Procedure Tolerated Well Tolerated Well Pain Scale: 0-10 Numeric Is Patient Pain Free? Yes Yes Laterality: Right - Groin Type of Debridement: Excisional debridement Anesthesia Used: 4% Lidocaine Solution Depth: Down to and including healthy tissue, in the subcutaneous layer Percentage of wound debrided: 100 Instrument Used: 7mm curette Severity: Fat Layer Exposed Amount of bleeding with debridement: Mild Bleeding Controlled with: Compression and gauze Patient tolerated procedure well Following a standard excisional debridement, which was well-tolerated, a 2 cm x 2 cm EpiFix allograft was selected. The allograft was removed from its sterile packaging. It was cut to the appropriate dimensions, and placed topically on the ulceration. Wound veil and gauze were then placed, and the site was secured using Steri-Strips. The procedure was well-tolerated by the patient. 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 In the 1970's, she was diagnosed with malignant melanoma of the right calf, with metastasis to lymph nodes in the right groin. She underwent excision of the melanoma with right groin lymphadenectomy. She was subsequently treated with a long series of radiation treatments to the right groin. During the days of her radiation treatment, it is suspected that the radiation techniques were somewhat early in their evolution, and quite likely that the patient received massive doses of radiation exposure, exceeding doses which would be considered appropriate today, with techniques which are primitive by today's standards. As result, the patient has developed soft tissue radiation injury, and has previously been treated at our wound center in the past with a series of approximately 90 hyperbaric oxygen therapy treatments, in 2011. She presented with recurrence of soft tissue radionecrosis in the right groin. Hyperbaric oxygen therapy treatments have been initiated, and the patient has undergone a series of nearly 90 hyperbaric oxygen treatment sessions. She has shown benefit from the hyperbaric oxygen treatments, which were felt to be clinically warranted, and in accordance with the patient's past history, in which wound healing was effected only after 90 such sessions. She has tolerated hyperbaric oxygen therapy well, without complaints or complications. She has completed her nearly 90 sessions of hyperbaric oxygen treatments. At this time, there is no clinical evidence of infection or cellulitis in the daniel-ulcer area. Clearly, the patient is responding very slowly to the variety of conventional treatment measures which have been implemented. However, in review of the patient's past history, such has been the case previously, as each treatment course has been rather protracted and lengthy in nature to achieve ultimate healing. Plan: The patient has been the recipient of 9 EpiFix applications, counting today's application. Additional allograft applications are felt to be warranted, and recent approval from her insurance company has been granted. Patient will return in 1 week for reassessment. The patient is to continue with a nutritious diet. Biopsies of the ulceration have been obtained, and the results are negative for malignancy. We have discussed the possibility of seeking outside consultation with a plastic surgeon, perhaps that the [facility]. The patient is open to such consideration. The patient will return in 1 week for reassessment. Influenza vaccine was not administered today. The patient is not a smoker. She stands 5 feet 7 inches tall. She weighs 198 pounds. Her BMI is 31, which places her in a class I weight category. Weight loss has been recommended. She is to collaborate with her primary care physician in this regard.
--- NOTE | 2018-04-17 08:52 | HP.PCM_ITS ---
(1) History of uterine cancer Status: Chronic Current Visit: No Code(s): Z85.42 - Personal history of malignant neoplasm of other parts of uterus (2) History of melanoma Status: Chronic Current Visit: Yes Code(s): Z85.820 - Personal history of malignant melanoma of skin (3) Hyperlipidemia Status: Chronic Current Visit: No Code(s): E78.5 - Hyperlipidemia, unspecified (4) GERD (gastroesophageal reflux disease) Status: Chronic Current Visit: No Code(s): K21.9 - Gastro-esophageal reflux disease without esophagitis (5) Ulcer of right groin Status: Chronic Current Visit: Yes Qualifiers: Non-pressure ulcer stage: with fat layer exposed Code(s): L98.499 - Non-pressure chronic ulcer of skin of other sites with unspecified severity (6) Obesity (BMI 30.0-34.9) Status: Chronic Current Visit: No Code(s): E66.9 - Obesity, unspecified (7) Amputee, above knee Status: Chronic Current Visit: Yes Qualifiers: Laterality: right Code(s): Z89.619 - Acquired absence of unspecified leg above knee (8) Soft tissue radionecrosis Status: Chronic Current Visit: Yes Code(s): L59.8 - Other specified disorders of the skin and subcutaneous tissue related to radiation; Y84.2 - Radiological procedure and radiotherapy as the cause of abnormal reaction of the patient, or of later complication, without mention of misadventure at the time of the procedure (9) soft tissue radiation injury Status: Chronic Current Visit: Yes History of Present Illness Chief Complaint: 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 The patient underwent excision of her melanoma with lymphadenect sharmaine in the right groin. She also underwent lengthy radiation treatments at the [facility] in [place], [place]. Melanoma recurred, and the patient was subsequently treated with monoclonal antibodies in 1984. 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 Treatment included local ulcer care and hyperbaric oxygen therapy. She underwent a total of nearly 90 treatments of hyperbaric oxygen therapy. It is known that she tolerated the therapies well, and derived significant benefit. She relates no history of claustrophobia, or other complications related to the hyperbaric oxygen therapy treatments. She has no history of barotrauma to lungs, ears, etc. Her medical history has been reviewed, without any evidence of contraindications to hyperbaric oxygen therapy. Hyperbaric oxygen therapy has been administered for nearly 90 treatment sessions. We are currently using EpiFix allografts, and she has undergone 8 applications thus far. The patient's history suggests that the right groin wound in the past responded to hyperbaric oxygen therapy, but required 90 such sessions. It appears as though the patient's current clinical course is mimicking that of the past, with wound healing which is very recalcitrant to conventional treatment measures. 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 She is undergone excision of melanoma from the right calf, with lymphadenectomy of the right groin in the 1969's. She subsequently required surgeries of the right thigh related to osteomyelitis, MRSA infection, and radiation injury to the right femoral artery. Ultimately, the patient required right above-knee amputation, performed in 2000. She also has a remote history of open reduction and internal fixation of a right ankle fracture. Allergies/Adverse Reactions: Allergies No Known Allergies Allergy (Verified 06/20/17 09:22) Home Medications: Ambulatory Orders Medication Instructions Recorded Famotidine 20 mg PO 06/20/17 Pravastatin [Pravachol] 20 mg PO DAILY 06/20/17 - Family History Maternal - - The patient's mother is 98 years of age and relatively healthy. The patient's father at age of 79 with a history of cardiomyopathy. Smoking Status: Former smoker Tobacco Use: Non-smoker Review of Systems Constitutional: Denies: Chills, Fever, Weight Change Eyes: Denies: Pain, Vision Change HEENT: Denies: Difficulty Hearing, Difficulty Swallowing, Sinus Congestion Cardiovascular: Denies: Chest Pain, Palpitations Respiratory: Denies: Cough, Shortness of Breath Gastrointestinal: Denies: Diarrhea, Nausea, Vomiting Genitourinary: Denies: Dysuria, Hematuria Endocrine: Denies: Heat/ Cold Intolerance, Polydipsia, Polyuria Hematologic/ Lymphatic: Denies: Easy Bruising, Easy Bleeding - Physical Exam Vital Signs Temp Pulse Resp BP 97.3 F L 91 16 140/95 H 04/17/18 08:13 04/17/18 08:13 04/17/18 08:13 04/17/18 08:13 General: Alert, Oriented x3, Cooperative, No apparent distress, Well developed, Well nourished HEENT: Atraumatic, PERRLA, EOMI, Normocephalic Oral: Moist Mucosa Neck: No JVD Lungs: Normal air movement Abdomen: Non-Distended Extremities: No clubbing, No cyanosis, No edema, No Calf Tenderness, - - The ulceration on the right groin persists, with little change in appearance. Dimensions are documented elsewhere. There is a small amount of bioburden. There is no sign of infection or cellulitis. There is evidence of active granulation. A well-healed right above-knee amputation stump is noted. Skin: No rashes Wound Measurements and Assessment WC - Nurse 1 - General Ulcer Measurement Start: 04/10/18 08:11 Freq: Status: Active Protocol: Activity Type Activity Date Activity User E-Sign Co-Sign Detail Recorded Client Recorded Date Recorded By Document 04/17/18 08:13 [id number] 04/17/18 08:18 04/17/18 08:13 Wound Center Nurse 1 [Ulcer Assessment] #5 R Groin -Combined with other wound No -Current Size (cm) - Length 3.5 -Current Size (cm) - Width 1.0 -Current Size (cm) - Depth 0.4 -Total Square Cm 3.50 -Photo Taken No -Epithelialization Small 1-33% -Tunneling No -Undermining/Tunneling No -Circular Undermining No -Exudate Amt Small (1-33%) -Exudate Type Serosanguineous -Wound Margin Flat & Intact -Granulation Amt Medium (34-66%) -Granulation Quality Red -Slough/Fibrin Yes -Necrosis Amt Small (1-33%) -Necrotic Tissue Type Adherent Slough -Structure Exposed N/A -Texture (Daniel-wound Skin Appearance) Assessed Scarring -Moisture (Daniel-wound Skin Appearance Assessed ) Dry/Scaly -Color (Daniel-wound Skin Appearance) Assessed -Temperature (Daniel-wound Skin No Abnormality Appearance) (Pt Warm) -Tenderness on Palpation (Daniel-wound No Skin Appearance) -Ulcer Cleansing Rinsed/ Irrigated with Saline -Foul Odor after Cleansing No -Anesthetic Used 4% Lidocaine Solution [Edema Assessment] -Lower Limb Edema Present NA WC - Nurse 2 - General Ulcer CM Notes Start: 04/10/18 08:11 Freq: Status: Active Protocol: Activity Type Activity Date Activity User E-Sign Co-Sign Detail Recorded Client Recorded Date Recorded By Document 04/17/18 08:23 [email or web address] [id number] 04/17/18 08:38 [email or web address] 04/17/18 08:23 Wound Center Nurse 2 [Procedure/Treatment] #5 R Groin -Time 08:23 -Correct Patient Yes -Correct Side, Site, Position Yes -Correct Procedure Yes -Procedure Performed Yes -Type of Procedure Debridement -Clinical Debridement Subcutaneous -Post Debridement Size (cm) - Length 3.6 -Post Debridement Size (cm) - Width 1.1 -Post Debridement Size (cm) - Depth 0.4 -Total Square Cm 3.96 -Wound/Ulcer Outcome Not Healed -Ulcer Cleansing Rinsed/ Irrigated with Saline -Foul Odor after Cleansing No -Bioengineered Tissue Yes -Type of bioengineered Tissue EPIFIX -Expiration Date 12/08/22 -Product Lot Number [id number] -Percent Used 100 -Saline Lot Number NA -Topical Lidocaine (%) 4 -Lidocaine (ml) 5 -Bleeding Controlled with NA -Treatment Response Procedure Tolerated Well [See Physician Procedure note for Specifics] Pain Scale: 0-10 Numeric [Pain] -Is Patient Pain Free? Yes Musculoskeletal: No Muscle Wasting Neurological: Cranial nerves II-XII grossly intact, Neuro grossly intact Psych/Mental Status: Normal Affect, Appropriate, Alert and oriented to time, place, person, mood and affect Debridement Note Post-Debridement Measurements/Treatment WC - Nurse 2 - General Ulcer CM Notes Start: 04/10/18 08:11 Freq: Status: Active Protocol: Activity Type Activity Date Activity User E-Sign Co-Sign Detail Recorded Client Recorded Date Recorded By Document 04/10/18 08:37 DV [id number] 04/10/18 08:41 DV Document 04/17/18 08:23 JS [id number] 04/17/18 08:38 JS 04/10/18 04/17/18 08:37 08:23 Wound Center Nurse 2 #5 R Groin -Time 08:41 08:23 -Correct Patient Yes Yes -Correct Side, Site, Position Yes Yes -Correct Procedure Yes Yes -Procedure Performed Yes Yes -Type of Procedure Debridement Debridement -Clinical Debridement Subcutaneous Subcutaneous -Post Debridement Size (cm) - Length 3.3 3.6 -Post Debridement Size (cm) - Width 1.0 1.1 -Post Debridement Size (cm) - Depth 0.2 0.4 -Total Square Cm 3.30 3.96 -Wound/Ulcer Outcome Not Healed Not Healed -Ulcer Cleansing Rinsed/ Rinsed/ Irrigated with Irrigated with Saline Saline -Foul Odor after Cleansing No No -Bioengineered Tissue No Yes -Type of bioengineered Tissue EPIFIX -Expiration Date 12/08/22 -Product Lot Number [id number] -Percent Used 100 -Saline Lot Number NA -Topical Lidocaine (%) 4 -Lidocaine (ml) 5 -Bleeding Controlled with Pressure NA -Other biopsy x2 -Treatment Response Procedure Procedure Tolerated Well Tolerated Well Pain Scale: 0-10 Numeric Is Patient Pain Free? Yes Yes Laterality: Right - Groin Type of Debridement: Excisional debridement Anesthesia Used: 4% Lidocaine Solution Depth: Down to and including healthy tissue, in the subcutaneous layer Percentage of wound debrided: 100 Instrument Used: 7mm curette Severity: Fat Layer Exposed Amount of bleeding with debridement: Mild Bleeding Controlled with: Compression and gauze Patient tolerated procedure well Following a standard excisional debridement, which was well-tolerated, a 2 cm x 2 cm EpiFix allograft was selected. The allograft was removed from its sterile packaging. It was cut to the appropriate dimensions, and placed topically on the ulceration. Wound veil and gauze were then placed, and the site was secured using Steri-Strips. The procedure was well-tolerated by the patient. 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 In the 1970's, she was diagnosed with malignant melanoma of the right calf, with metastasis to lymph nodes in the right groin. She underwent excision of the melanoma with right groin lymphadenectomy. She was subsequently treated with a long series of radiation treatments to the right groin. During the days of her radiation treatment, it is suspected that the radiation techniques were somewhat early in their evolution, and quite likely that the patient received massive doses of radiation exposure, exceeding doses which would be considered appropriate today, with techniques which are primitive by today's standards. As result, the patient has developed soft tissue radiation injury, and has previously been treated at our wound center in the past with a series of approximately 90 hyperbaric oxygen therapy treatments, in 2011. She presented with recurrence of soft tissue radionecrosis in the right groin. Hyperbaric oxygen therapy treatments have been initiated, and the patient has undergone a series of nearly 90 hyperbaric oxygen treatment sessions. She has shown benefit from the hyperbaric oxygen treatments, which were felt to be clinically warranted, and in accordance with the patient's past history, in which wound healing was effected only after 90 such sessions. She has tolerated hyperbaric oxygen therapy well, without complaints or complications. She has completed her nearly 90 sessions of hyperbaric oxygen treatments. At this time, there is no clinical evidence of infection or cellulitis in the daniel-ulcer area. Clearly, the patient is responding very slowly to the variety of conventional treatment measures which have been implemented. However, in review of the patient's past history, such has been the case previously, as each treatment course has been rather protracted and lengthy in nature to achieve ultimate healing. Plan: The patient has been the recipient of 9 EpiFix applications, counting today's application. Additional allograft applications are felt to be warranted, and recent approval from her insurance company has been granted. Patient will return in 1 week for reassessment. The patient is to continue with a nutritious diet. Biopsies of the ulceration have been obtained, and the results are negative for malignancy. We have discussed the possibility of seeking outside consultation with a plastic surgeon, perhaps that the [facility]. The patient is open to such consideration. The patient will return in 1 week for reassessment. Influenza vaccine was not administered today. The patient is not a smoker. She stands 5 feet 7 inches tall. She weighs 198 pounds. Her BMI is 31, which places her in a class I weight category. Weight loss has been recommended. She is to collaborate with her primary care physician in this regard.
[2018-04-24 08:20] VITALS: BP 128/80; PULSE 90; RESP 18; TEMP 35.9; BMI 68.3
--- NOTE | 2018-04-24 08:42 | PCM.WC.HP ---
(1) History of uterine cancer Status: Chronic Current Visit: No Code(s): Z85.42 - Personal history of malignant neoplasm of other parts of uterus (2) History of melanoma Status: Chronic Current Visit: Yes Code(s): Z85.820 - Personal history of malignant melanoma of skin (3) Hyperlipidemia Status: Chronic Current Visit: No Code(s): E78.5 - Hyperlipidemia, unspecified (4) GERD (gastroesophageal reflux disease) Status: Chronic Current Visit: No Code(s): K21.9 - Gastro-esophageal reflux disease without esophagitis (5) Ulcer of right groin Status: Chronic Current Visit: Yes Qualifiers: Non-pressure ulcer stage: with fat layer exposed Code(s): L98.499 - Non-pressure chronic ulcer of skin of other sites with unspecified severity (6) Obesity (BMI 30.0-34.9) Status: Chronic Current Visit: No Code(s): E66.9 - Obesity, unspecified (7) Amputee, above knee Status: Chronic Current Visit: Yes Qualifiers: Laterality: right Code(s): Z89.619 - Acquired absence of unspecified leg above knee (8) Soft tissue radionecrosis Status: Chronic Current Visit: Yes Code(s): L59.8 - Other specified disorders of the skin and subcutaneous tissue related to radiation; Y84.2 - Radiological procedure and radiotherapy as the cause of abnormal reaction of the patient, or of later complication, without mention of misadventure at the time of the procedure (9) soft tissue radiation injury Status: Chronic Current Visit: Yes History of Present Illness Chief Complaint: 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 The patient underwent excision of her melanoma with lymphadenectomy in the right groin. She also underwent lengthy radiation treatments at the [facility] in [place], [place]. Melanoma recurred, and the patient was subsequently treated with monoclonal antibodies in 1984. 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 In 2012, the patient was treated in our wound center for ulcerations of the right upper thigh and groin related to soft tissue radiation necrosis. Treatment included local ulcer care and hyperbaric oxygen therapy. She underwent a total of nearly 90 treatments of hyperbaric oxygen therapy. It is known that she tolerated the therapies well, and derived significant benefit. She relates no history of claustrophobia, or other complications related to the hyperbaric oxygen therapy treatments. She has no history of barotrauma to lungs, ears, etc. Her medical history has been reviewed, without any evidence of contraindications to hyperbaric oxygen therapy. Hyperbaric oxygen therapy has been administered for nearly 90 treatment sessions. We are currently using EpiFix allografts, and she has undergone 8 applications thus far. The patient's history suggests that the right groin wound in the past responded to hyperbaric oxygen therapy, but required 90 such sessions. It appears as though the patient's current clinical course is mimicking that of the past, with wound healing which is very recalcitrant to conventional treatment measures. 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 She is undergone excision of melanoma from the right calf, with lymphadenectomy of the right groin in the 1969's. She subsequently required surgeries of the right thigh related to osteomyelitis, MRSA infection, and radiation injury to the right femoral artery. Ultimately, the patient required right above-knee amputation, performed in 2000. She also has a remote history of open reduction and internal fixation of a right ankle fracture. Allergies/Adverse Reactions: Allergies No Known Allergies Allergy (Verified 06/20/17 09:22) Home Medications: Ambulatory Orders Medication Instructions Recorded Famotidine 20 mg PO 06/20/17 Pravastatin [Pravachol] 20 mg PO DAILY 06/20/17 - Family History Maternal - - The patient's mother is 98 years of age and relatively healthy. The patient's father at age of 79 with a history of cardiomyopathy. Smoking Status: Former smoker Tobacco Use: Non-smoker Review of Systems Constitutional: Denies: Chills, Fever, Weight Change Eyes: Denies: Pain, Vision Change HEENT: Denies: Difficulty Hearing, Difficulty Swallowing, Sinus Congestion Cardiovascular: Denies: Chest Pain, Palpitations Respiratory: Denies: Cough, Shortness of Breath Gastrointestinal: Denies: Diarrhea, Nausea, Vomiting Genitourinary: Denies: Dysuria, Hematuria Endocrine: Denies: Heat/ Cold Intolerance, Polydipsia, Polyuria Hematologic/ Lymphatic: Denies: Easy Bruising, Easy Bleeding - Physical Exam Vital Signs Temp Pulse Resp BP 96.6 F L 90 18 128/80 H 04/24/18 08:20 04/24/18 08:20 04/24/18 08:20 04/24/18 08:20 General: Alert, Oriented x3, Cooperative, No apparent distress, Well developed, Well nourished HEENT: Atraumatic, PERRLA, EOMI, Normocephalic Oral: Moist Mucosa Neck: No JVD Lungs: Normal air movement Abdomen: Non-Distended Extremities: No clubbing, No cyanosis, No edema, No Calf Tenderness, - - A well-healed above-knee imitation stump is noted. The ulceration in the right groin is essentially unchanged, though slightly smaller. Dimensions are documented elsewhere. The base of the ulceration is generally pink and healthy in appearance, with a mild amount of bioburden. There is no sign of infection or cellulitis. Skin: No rashes Wound Measurements and Assessment WC - Nurse 1 - General Ulcer Measurement Start: 04/10/18 08:11 Freq: Status: Active Protocol: Activity Type Activity Date Activity User E-Sign Co-Sign Detail Recorded Client Recorded Date Recorded By Document 04/24/18 08:20 [id number] 04/24/18 08:22 04/24/18 08:20 Wound Center Nurse 1 [Ulcer Assessment] #5 R Groin -Combined with other wound No -Current Size (cm) - Length 3.0 -Current Size (cm) - Width 1.0 -Current Size (cm) - Depth 0.4 -Total Square Cm 3.00 -Photo Taken No -Epithelialization Small 1-33% -Tunneling No -Undermining/Tunneling No -Circular Undermining No -Classification - Thickness Full Thickness without Exposed Support Structure -Exudate Amt Medium (34-66%) -Exudate Type Serosanguineous -Wound Margin Fibrotic Scar, Thickened Scar -Granulation Amt Medium (34-66%) -Granulation Quality [place] -Slough/Fibrin Yes -Necrosis Amt Medium (34-66%) -Necrotic Tissue Type Adherent Slough -Structure Exposed Fascia Fat Layer Exposed -Texture (Daniel-wound Skin Appearance) Assessed Friable Scarring -Moisture (Daniel-wound Skin Appearance No Abnormality ) Assessed -Color (Daniel-wound Skin Appearance) No Abnormality Assessed -Temperature (Daniel-wound Skin No Abnormality Appearance) (Pt Warm) -Tenderness on Palpation (Daniel-wound No Skin Appearance) -Ulcer Cleansing Rinsed/ Irrigated with Saline -Foul Odor after Cleansing No -Anesthetic Used 5% Lidocaine Gel [Edema Assessment] -Lower Limb Edema Present No WC - Nurse 2 - General Ulcer CM Notes Start: 04/10/18 08:11 Freq: Status: Active Protocol: Activity Type Activity Date Activity User E-Sign Co-Sign Detail Recorded Client Recorded Date Recorded By Document 04/24/18 08:28 [id number] 04/24/18 08:37 04/24/18 08:28 Wound Center Nurse 2 [Procedure/Treatment] #5 R Groin -Time 08:28 -Correct Patient Yes -Correct Side, Site, Position Yes -Correct Procedure Yes -Procedure Performed Yes -Type of Procedure Debridement -Clinical Debridement Subcutaneous -Post Debridement Size (cm) - Length 3.1 -Post Debridement Size (cm) - Width 1.1 -Post Debridement Size (cm) - Depth 0.4 -Total Square Cm 3.41 -Wound/Ulcer Outcome Not Healed -Ulcer Cleansing Rinsed/ Irrigated with Saline -Foul Odor after Cleansing No -Bioengineered Tissue Yes -Type of bioengineered Tissue EPIFIX -Expiration Date 12/08/22 -Product Lot Number [id number] -Percent Used 100 -Saline Lot Number NA -Topical Lidocaine (%) 4 -Lidocaine (ml) 5 -Bleeding Controlled with NA -Treatment Response Procedure Tolerated Well [See Physician Procedure note for Specifics] Pain Scale: 0-10 Numeric [Pain] -Is Patient Pain Free? Yes Musculoskeletal: No Muscle Wasting Neurological: Cranial nerves II-XII grossly intact, Neuro grossly intact Psych/Mental Status: Normal Affect, Appropriate, Alert and oriented to time, place, person, mood and affect Debridement Note Post-Debridement Measurements/Treatment WC - Nurse 2 - General Ulcer CM Notes Start: 04/10/18 08:11 Freq: Status: Active Protocol: Activity Type Activity Date Activity User E-Sign Co-Sign Detail Recorded Client Recorded Date Recorded By Document 04/10/18 08:37 DV [id number] 04/10/18 08:41 DV Document 04/17/18 08:23 JS [id number] 04/17/18 08:38 JS Document 04/24/18 08:28 JS [id number] 04/24/18 08:37 JS 04/10/18 04/17/18 04/24/18 08:37 08:23 08:28 Wound Center Nurse 2 #5 R Groin -Time 08:41 08:23 08:28 -Correct Patient Yes Yes Yes -Correct Side, Site, Position Yes Yes Yes -Correct Procedure Yes Yes Yes -Procedure Performed Yes Yes Yes -Type of Procedure Debridement Debridement Debridement -Clinical Debridement Subcutaneous Subcutaneous Subcutaneous -Post Debridement Size (cm) - Length 3.3 3.6 3.1 -Post Debridement Size (cm) - Width 1.0 1.1 1.1 -Post Debridement Size (cm) - Depth 0.2 0.4 0.4 -Total Square Cm 3.30 3.96 3.41 -Wound/Ulcer Outcome Not Healed Not Healed Not Healed -Ulcer Cleansing Rinsed/ Rinsed/ Rinsed/ Irrigated with Irrigated with Irrigated with Saline Saline Saline -Foul Odor after Cleansing No No No -Bioengineered Tissue No Yes Yes -Type of bioengineered Tissue EPIFIX EPIFIX -Expiration Date 12/08/22 12/08/22 -Product Lot Number [id number] -Percent Used 100 100 -Saline Lot Number NA NA -Topical Lidocaine (%) 4 4 -Lidocaine (ml) 5 5 -Bleeding Controlled with Pressure NA NA -Other biopsy x2 -Treatment Response Procedure Procedure Procedure Tolerated Well Tolerated Well Tolerated Well Pain Scale: 0-10 Numeric Is Patient Pain Free? Yes Yes Yes Laterality: Right - Groin Type of Debridement: Excisional debridement Anesthesia Used: 4% Lidocaine Solution Depth: Down to and including healthy tissue, in the subcutaneous layer Percentage of wound debrided: 100 Instrument Used: 7mm curette Severity: Fat Layer Exposed Amount of bleeding with debridement: Mild Bleeding Controlled with: Compression and gauze Patient tolerated procedure well Following a routine excisional debridement of the right groin ulceration, a 2 cm x 2 cm EpiFix allograft was applied. Upon removal from its sterile packaging, the allograft was fashioned to the appropriate shape and dimensions. It was applied topically in the appropriate orientation. Wound veil and gauze were then placed, and the site was secured using Steri-Strips. The procedure was well-tolerated. 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 In the 1970's, she was diagnosed with malignant melanoma of the right calf, with metastasis to lymph nodes in the right groin. She underwent excision of the melanoma with right groin lymphadenectomy. She was subsequently treated with a long series of radiation treatments to the right groin. During the days of her radiation treatment, it is suspected that the radiation techniques were somewhat early in their evolution, and quite likely that the patient received massive doses of radiation exposure, exceeding doses which would be considered appropriate today, with techniques which are primitive by today's standards. As result, the patient has developed soft tissue radiation injury, and has previously been treated at our wound center in the past with a series of approximately 90 hyperbaric oxygen therapy treatments, in 2011. She presented with recurrence of soft tissue radionecrosis in the right groin. Hyperbaric oxygen therapy treatments have been initiated, and the patient has undergone a series of nearly 90 hyperbaric oxygen treatment sessions. She has shown benefit from the hyperbaric oxygen treatments, which were felt to be clinically warranted, and in accordance with the patient's past history, in which wound healing was effected only after 90 such sessions. She has tolerated hyperbaric oxygen therapy well, without complaints or complications. She has completed her nearly 90 sessions of hyperbaric oxygen treatments. At this time, there is no clinical evidence of infection or cellulitis in the daniel-ulcer area. Clearly, the patient is responding very slowly to the variety of conventional treatment measures which have been implemented. However, in review of the patient's past history, such has been the case previously, as each treatment course has been rather protracted and lengthy in nature to achieve ultimate healing. Plan: The patient has been the recipient of 10 EpiFix applications, counting today's application. Patient will return in 1 week for reassessment. The patient is to continue with a nutritious diet. Biopsies of the ulceration have been obtained, and the results are negative for malignancy. We have discussed the possibility of seeking outside consultation with a plastic surgeon, perhaps that the [facility]. The patient is open to such consideration. The patient will return in 1 week for reassessment. Influenza vaccine was not administered today. The patient is not a smoker. She stands 5 feet 7 inches tall. She weighs 198 pounds. Her BMI is 31, which places her in a class I weight category. Weight loss has been recommended. She is to collaborate with her primary care physician in this regard.
--- NOTE | 2018-04-24 08:45 | HP.PCM_ITS ---
(1) History of uterine cancer Status: Chronic Current Visit: No Code(s): Z85.42 - Personal history of malignant neoplasm of other parts of uterus (2) History of melanoma Status: Chronic Current Visit: Yes Code(s): Z85.820 - Personal history of malignant melanoma of skin (3) Hyperlipidemia Status: Chronic Current Visit: No Code(s): E78.5 - Hyperlipidemia, unspecified (4) GERD (gastroesophageal reflux disease) Status: Chronic Current Visit: No Code(s): K21.9 - Gastro-esophageal reflux disease without esophagitis (5) Ulcer of right groin Status: Chronic Current Visit: Yes Qualifiers: Non-pressure ulcer stage: with fat layer exposed Code(s): L98.499 - Non-pressure chronic ulcer of skin of other sites with unspecified severity (6) Obesity (BMI 30.0-34.9) Status: Chronic Current Visit: No Code(s): E66.9 - Obesity, unspecified (7) Amputee, above knee Status: Chronic Current Visit: Yes Qualifiers: Laterality: right Code(s): Z89.619 - Acquired absence of unspecified leg above knee (8) Soft tissue radionecrosis Status: Chronic Current Visit: Yes Code(s): L59.8 - Other specified disorders of the skin and subcutaneous tissue related to radiation; Y84.2 - Radiological procedure and radiotherapy as the cause of abnormal reaction of the patient, or of later complication, without mention of misadventure at the time of the procedure (9) soft tissue radiation injury Status: Chronic Current Visit: Yes History of Present Illness Chief Complaint: 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 The patient underwent excision of her melanoma with lymphadenect sharmaine in the right groin. She also underwent lengthy radiation treatments at the [facility] in [place], [place]. Melanoma recurred, and the patient was subsequently treated with monoclonal antibodies in 1984. 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 Treatment included local ulcer care and hyperbaric oxygen therapy. She underwent a total of nearly 90 treatments of hyperbaric oxygen therapy. It is known that she tolerated the therapies well, and derived significant benefit. She relates no history of claustrophobia, or other complications related to the hyperbaric oxygen therapy treatments. She has no history of barotrauma to lungs, ears, etc. Her medical history has been reviewed, without any evidence of contraindications to hyperbaric oxygen therapy. Hyperbaric oxygen therapy has been administered for nearly 90 treatment sessions. We are currently using EpiFix allografts, and she has undergone 8 applications thus far. The patient's history suggests that the right groin wound in the past responded to hyperbaric oxygen therapy, but required 90 such sessions. It appears as though the patient's current clinical course is mimicking that of the past, with wound healing which is very recalcitrant to conventional treatment measures. 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 She is undergone excision of melanoma from the right calf, with lymphadenectomy of the right groin in the 1969's. She subsequently required surgeries of the right thigh related to osteomyelitis, MRSA infection, and radiation injury to the right femoral artery. Ultimately, the patient required right above-knee amputation, performed in 2000. She also has a remote history of open reduction and internal fixation of a right ankle fracture. Allergies/Adverse Reactions: Allergies No Known Allergies Allergy (Verified 06/20/17 09:22) Home Medications: Ambulatory Orders Medication Instructions Recorded Famotidine 20 mg PO 06/20/17 Pravastatin [Pravachol] 20 mg PO DAILY 06/20/17 - Family History Maternal - - The patient's mother is 98 years of age and relatively healthy. The patient's father at age of 79 with a history of cardiomyopathy. Smoking Status: Former smoker Tobacco Use: Non-smoker Review of Systems Constitutional: Denies: Chills, Fever, Weight Change Eyes: Denies: Pain, Vision Change HEENT: Denies: Difficulty Hearing, Difficulty Swallowing, Sinus Congestion Cardiovascular: Denies: Chest Pain, Palpitations Respiratory: Denies: Cough, Shortness of Breath Gastrointestinal: Denies: Diarrhea, Nausea, Vomiting Genitourinary: Denies: Dysuria, Hematuria Endocrine: Denies: Heat/ Cold Intolerance, Polydipsia, Polyuria Hematologic/ Lymphatic: Denies: Easy Bruising, Easy Bleeding - Physical Exam Vital Signs Temp Pulse Resp BP 96.6 F L 90 18 128/80 H 04/24/18 08:20 04/24/18 08:20 04/24/18 08:20 04/24/18 08:20 General: Alert, Oriented x3, Cooperative, No apparent distress, Well developed, Well nourished HEENT: Atraumatic, PERRLA, EOMI, Normocephalic Oral: Moist Mucosa Neck: No JVD Lungs: Normal air movement Abdomen: Non-Distended Extremities: No clubbing, No cyanosis, No edema, No Calf Tenderness, - - A well- healed above-knee imitation stump is noted. The ulceration in the right groin is essentially unchanged, though slightly smaller. Dimensions are documented elsewhere. The base of the ulceration is generally pink and healthy in appearance, with a mild amount of bioburden. There is no sign of infection or cellulitis. Skin: No rashes Wound Measurements and Assessment WC - Nurse 1 - General Ulcer Measurement Start: 04/10/18 08:11 Freq: Status: Active Protocol: Activity Type Activity Date Activity User E-Sign Co-Sign Detail Recorded Client Recorded Date Recorded By Document 04/24/18 08:20 [id number] 04/24/18 08:22 04/24/18 08:20 Wound Center Nurse 1 [Ulcer Assessment] #5 R Groin -Combined with other wound No -Current Size (cm) - Length 3.0 -Current Size (cm) - Width 1.0 -Current Size (cm) - Depth 0.4 -Total Square Cm 3.00 -Photo Taken No -Epithelialization Small 1-33% -Tunneling No -Undermining/Tunneling No -Circular Undermining No -Classification - Thickness Full Thickness without Exposed Support Structure -Exudate Amt Medium (34-66%) -Exudate Type Serosanguineous -Wound Margin Fibrotic Scar, Thickened Scar -Granulation Amt Medium (34-66%) -Granulation Quality [place] -Slough/Fibrin Yes -Necrosis Amt Medium (34-66%) -Necrotic Tissue Type Adherent Slough -Structure Exposed Fascia Fat Layer Exposed -Texture (Daniel-wound Skin Appearance) Assessed Friable Scarring -Moisture (Daniel-wound Skin Appearance No Abnormality ) Assessed -Color (Daniel-wound Skin Appearance) No Abnormality Assessed -Temperature (Daniel-wound Skin No Abnormality Appearance) (Pt Warm) -Tenderness on Palpation (Daniel-wound No Skin Appearance) -Ulcer Cleansing Rinsed/ Irrigated with Saline -Foul Odor after Cleansing No -Anesthetic Used 5% Lidocaine Gel [Edema Assessment] -Lower Limb Edema Present No WC - Nurse 2 - General Ulcer CM Notes Start: 04/10/18 08:11 Freq: Status: Active Protocol: Activity Type Activity Date Activity User E-Sign Co-Sign Detail Recorded Client Recorded Date Recorded By Document 04/24/18 08:28 [id number] 04/24/18 08:37 04/24/18 08:28 Wound Center Nurse 2 [Procedure/Treatment] #5 R Groin -Time 08:28 -Correct Patient Yes -Correct Side, Site, Position Yes -Correct Procedure Yes -Procedure Performed Yes -Type of Procedure Debridement -Clinical Debridement Subcutaneous -Post Debridement Size (cm) - Length 3.1 -Post Debridement Size (cm) - Width 1.1 -Post Debridement Size (cm) - Depth 0.4 -Total Square Cm 3.41 -Wound/Ulcer Outcome Not Healed -Ulcer Cleansing Rinsed/ Irrigated with Saline -Foul Odor after Cleansing No -Bioengineered Tissue Yes -Type of bioengineered Tissue EPIFIX -Expiration Date 12/08/22 -Product Lot Number [id number] -Percent Used 100 -Saline Lot Number NA -Topical Lidocaine (%) 4 -Lidocaine (ml) 5 -Bleeding Controlled with NA -Treatment Response Procedure Tolerated Well [See Physician Procedure note for Specifics] Pain Scale: 0-10 Numeric [Pain] -Is Patient Pain Free? Yes Musculoskeletal: No Muscle Wasting Neurological: Cranial nerves II-XII grossly intact, Neuro grossly intact Psych/Mental Status: Normal Affect, Appropriate, Alert and oriented to time, place, person, mood and affect Debridement Note Post-Debridement Measurements/Treatment WC - Nurse 2 - General Ulcer CM Notes Start: 04/10/18 08:11 Freq: Status: Active Protocol: Activity Type Activity Date Activity User E-Sign Co-Sign Detail Recorded Client Recorded Date Recorded By Document 04/10/18 08:37 DV [id number] 04/10/18 08:41 DV Document 04/17/18 08:23 JS [id number] 04/17/18 08:38 JS Document 04/24/18 08:28 JS [id number] 04/24/18 08:37 JS 04/10/18 04/17/18 04/24/18 08:37 08:23 08:28 Wound Center Nurse 2 #5 R Groin -Time 08:41 08:23 08:28 -Correct Patient Yes Yes Yes -Correct Side, Site, Position Yes Yes Yes -Correct Procedure Yes Yes Yes -Procedure Performed Yes Yes Yes -Type of Procedure Debridement Debridement Debridement -Clinical Debridement Subcutaneous Subcutaneous Subcutaneous -Post Debridement Size (cm) - Length 3.3 3.6 3.1 -Post Debridement Size (cm) - Width 1.0 1.1 1.1 -Post Debridement Size (cm) - Depth 0.2 0.4 0.4 -Total Square Cm 3.30 3.96 3.41 -Wound/Ulcer Outcome Not Healed Not Healed Not Healed -Ulcer Cleansing Rinsed/ Rinsed/ Rinsed/ Irrigated with Irrigated with Irrigated with Saline Saline Saline -Foul Odor after Cleansing No No No -Bioengineered Tissue No Yes Yes -Type of bioengineered Tissue EPIFIX EPIFIX -Expiration Date 12/08/22 12/08/22 -Product Lot Number [id number] -Percent Used 100 100 -Saline Lot Number NA NA -Topical Lidocaine (%) 4 4 -Lidocaine (ml) 5 5 -Bleeding Controlled with Pressure NA NA -Other biopsy x2 -Treatment Response Procedure Procedure Procedure Tolerated Well Tolerated Well Tolerated Well Pain Scale: 0-10 Numeric Is Patient Pain Free? Yes Yes Yes Laterality: Right - Groin Type of Debridement: Excisional debridement Anesthesia Used: 4% Lidocaine Solution Depth: Down to and including healthy tissue, in the subcutaneous layer Percentage of wound debrided: 100 Instrument Used: 7mm curette Severity: Fat Layer Exposed Amount of bleeding with debridement: Mild Bleeding Controlled with: Compression and gauze Patient tolerated procedure well Following a routine excisional debridement of the right groin ulceration, a 2 cm x 2 cm EpiFix allograft was applied. Upon removal from its sterile packaging, the allograft was fashioned to the appropriate shape and dimensions. It was applied topically in the appropriate orientation. Wound veil and gauze were then placed, and the site was secured using Steri-Strips. The procedure was well-tolerated. 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 In the 1970's, she was diagnosed with malignant melanoma of the right calf, with metastasis to lymph nodes in the right groin. She underwent excision of the melanoma with right groin lymphadenectomy. She was subsequently treated with a long series of radiation treatments to the right groin. During the days of her radiation treatment, it is suspected that the radiation techniques were somewhat early in their evolution, and quite likely that the patient received massive doses of radiation exposure, exceeding doses which would be considered appropriate today, with techniques which are primitive by today's standards. As result, the patient has developed soft tissue radiation injury, and has previously been treated at our wound center in the past with a series of approximately 90 hyperbaric oxygen therapy treatments, in 2011. She presented with recurrence of soft tissue radionecrosis in the right groin. Hyperbaric oxygen therapy treatments have been initiated, and the patient has undergone a series of nearly 90 hyperbaric oxygen treatment sessions. She has shown benefit from the hyperbaric oxygen treatments, which were felt to be clinically warranted, and in accordance with the patient's past history, in which wound healing was effected only after 90 such sessions. She has tolerated hyperbaric oxygen therapy well, without complaints or complications. She has completed her nearly 90 sessions of hyperbaric oxygen treatments. At this time, there is no clinical evidence of infection or cellulitis in the daniel-ulcer area. Clearly, the patient is responding very slowly to the variety of conventional treatment measures which have been implemented. However, in review of the patient's past history, such has been the case previously, as each treatment course has been rather protracted and lengthy in nature to achieve ultimate healing. Plan: The patient has been the recipient of 10 EpiFix applications, counting today's application. Patient will return in 1 week for reassessment. The patient is to continue with a nutritious diet. Biopsies of the ulceration have been obtained, and the results are negative for malignancy. We have discussed the possibility of seeking outside consultation with a plastic surgeon, perhaps that the [facility]. The patient is open to such consideration. The patient will return in 1 week for reassessment. Influenza vaccine was not administered today. The patient is not a smoker. She stands 5 feet 7 inches tall. She weighs 198 pounds. Her BMI is 31, which places her in a class I weight category. Weight loss has been recommended. She is to collaborate with her primary care physician in this regard.
[2018-05-01 08:31] VITALS: BP 150/90; PULSE 89; RESP 16; TEMP 36.5; BMI 68.3
--- NOTE | 2018-05-01 08:44 | PCM.WC.HP ---
(1) History of uterine cancer Status: Chronic Current Visit: No Code(s): Z85.42 - Personal history of malignant neoplasm of other parts of uterus (2) History of melanoma Status: Chronic Current Visit: Yes Code(s): Z85.820 - Personal history of malignant melanoma of skin (3) Hyperlipidemia Status: Chronic Current Visit: No Code(s): E78.5 - Hyperlipidemia, unspecified (4) GERD (gastroesophageal reflux disease) Status: Chronic Current Visit: No Code(s): K21.9 - Gastro-esophageal reflux disease without esophagitis (5) Ulcer of right groin Status: Chronic Current Visit: Yes Qualifiers: Non-pressure ulcer stage: with fat layer exposed Code(s): L98.499 - Non-pressure chronic ulcer of skin of other sites with unspecified severity (6) Obesity (BMI 30.0-34.9) Status: Chronic Current Visit: No Code(s): E66.9 - Obesity, unspecified (7) Amputee, above knee Status: Chronic Current Visit: Yes Qualifiers: Laterality: right Code(s): Z89.619 - Acquired absence of unspecified leg above knee (8) Soft tissue radionecrosis Status: Chronic Current Visit: Yes Code(s): L59.8 - Other specified disorders of the skin and subcutaneous tissue related to radiation; Y84.2 - Radiological procedure and radiotherapy as the cause of abnormal reaction of the patient, or of later complication, without mention of misadventure at the time of the procedure (9) soft tissue radiation injury Status: Chronic Current Visit: Yes History of Present Illness Chief Complaint: 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 The patient underwent excision of her melanoma with lymphadenectomy in the right groin. She also underwent lengthy radiation treatments at the [facility] in [place], [place]. Melanoma recurred, and the patient was subsequently treated with monoclonal antibodies in 1984. 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 In 2012, the patient was treated in our wound center for ulcerations of the right upper thigh and groin related to soft tissue radiation necrosis. Treatment included local ulcer care and hyperbaric oxygen therapy. She underwent a total of nearly 90 treatments of hyperbaric oxygen therapy. It is known that she tolerated the therapies well, and derived significant benefit. She relates no history of claustrophobia, or other complications related to the hyperbaric oxygen therapy treatments. She has no history of barotrauma to lungs, ears, etc. Her medical history has been reviewed, without any evidence of contraindications to hyperbaric oxygen therapy. Hyperbaric oxygen therapy has been administered for nearly 90 treatment sessions. We are currently using EpiFix allografts, and she has undergone 8 applications thus far. The patient's history suggests that the right groin wound in the past responded to hyperbaric oxygen therapy, but required 90 such sessions. It appears as though the patient's current clinical course is mimicking that of the past, with wound healing which is very recalcitrant to conventional treatment measures. 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 She is undergone excision of melanoma from the right calf, with lymphadenectomy of the right groin in the 1969's. She subsequently required surgeries of the right thigh related to osteomyelitis, MRSA infection, and radiation injury to the right femoral artery. Ultimately, the patient required right above-knee amputation, performed in 2000. She also has a remote history of open reduction and internal fixation of a right ankle fracture. Allergies/Adverse Reactions: Allergies No Known Allergies Allergy (Verified 06/20/17 09:22) Home Medications: Ambulatory Orders Medication Instructions Recorded Famotidine 20 mg PO 06/20/17 Pravastatin [Pravachol] 20 mg PO DAILY 06/20/17 - Family History Maternal - - The patient's mother is 98 years of age and relatively healthy. The patient's father at age of 79 with a history of cardiomyopathy. Smoking Status: Former smoker Tobacco Use: Non-smoker Review of Systems Constitutional: Denies: Chills, Fever, Weight Change Eyes: Denies: Pain, Vision Change HEENT: Denies: Difficulty Hearing, Difficulty Swallowing, Sinus Congestion Cardiovascular: Denies: Chest Pain, Palpitations Respiratory: Denies: Cough, Shortness of Breath Gastrointestinal: Denies: Diarrhea, Nausea, Vomiting Genitourinary: Denies: Dysuria, Hematuria Endocrine: Denies: Heat/ Cold Intolerance, Polydipsia, Polyuria Hematologic/ Lymphatic: Denies: Easy Bruising, Easy Bleeding - Physical Exam Vital Signs Temp Pulse Resp BP 97.7 F L 89 16 150/90 H 05/01/18 08:31 10 08:31 05/01/18 08:31 05/01/18 08:31 General: Alert, Oriented x3, Cooperative, No apparent distress, Well developed, Well nourished HEENT: Atraumatic, PERRLA, EOMI, Normocephalic Oral: Moist Mucosa Neck: No JVD Lungs: Normal air movement Abdomen: Non-Distended Extremities: No clubbing, No cyanosis, No edema, No Calf Tenderness, - - A well-healed right above-knee amputation stump is noted. The ulceration in the right groin is slightly improved. Dimensions are documented elsewhere. There is no obvious sign of infection or cellulitis. There is no surrounding redness or erythema. There is a mild amount of bioburden. The superior portion of the ulceration demonstrates the presence of fibrous tissue. The more inferior portion demonstrates signs of healthy, active granulation tissue. Skin: No rashes Wound Measurements and Assessment WC - Nurse 1 - General Ulcer Measurement Start: 04/10/18 08:11 Freq: Status: Active Protocol: Activity Type Activity Date Activity User E-Sign Co-Sign Detail Recorded Client Recorded Date Recorded By Document 05/01/18 08:31 DV [id number] 05/01/18 08:34 DV 05/01/18 08:31 Wound Center Nurse 1 [Ulcer Assessment] #5 R Groin -Combined with other wound No -Current Size (cm) - Length 3.2 -Current Size (cm) - Width 1.0 -Current Size (cm) - Depth 0.4 -Total Square Cm 3.20 -Photo Taken No -Epithelialization Small 1-33% -Tunneling No -Undermining/Tunneling No -Circular Undermining No -Classification - Thickness Full Thickness without Exposed Support Structure -Exudate Amt Small (1-33%) -Exudate Type Serous -Wound Margin Thickened -Granulation Amt None Present (0 %) -Granulation Quality N/A -Slough/Fibrin Yes -Necrosis Amt Medium (34-66%) -Necrotic Tissue Type Adherent Slough -Structure Exposed None/Limited to Skin Breakdown -Texture (Daniel-wound Skin Appearance) No Abnormality Assessed -Moisture (Daniel-wound Skin Appearance No Abnormality ) Assessed -Color (Daniel-wound Skin Appearance) No Abnormality Assessed -Temperature (Daniel-wound Skin No Abnormality Appearance) (Pt Warm) -Tenderness on Palpation (Daniel-wound No Skin Appearance) -Ulcer Cleansing Rinsed/ Irrigated with Saline -Foul Odor after Cleansing No -Anesthetic Used 5% Lidocaine Gel Musculoskeletal: No Muscle Wasting Neurological: Cranial nerves II-XII grossly intact, Neuro grossly intact Psych/Mental Status: Normal Affect, Appropriate, Alert and oriented to time, place, person, mood and affect Debridement Note Post-Debridement Measurements/Treatment WC - Nurse 2 - General Ulcer CM Notes Start: 04/10/18 08:11 Freq: Status: Active Protocol: Activity Type Activity Date Activity User E-Sign Co-Sign Detail Recorded Client Recorded Date Recorded By Document 04/10/18 08:37 DV [id number] 04/10/18 08:41 DV Document 04/17/18 08:23 JS [id number] 04/17/18 08:38 JS Document 04/24/18 08:28 [id number] 04/24/18 08:37 04/10/18 04/17/18 04/24/18 08:37 08:23 08:28 Wound Center Nurse 2 #5 R Groin -Time 08:41 08:23 08:28 -Correct Patient Yes Yes Yes -Correct Side, Site, Position Yes Yes Yes -Correct Procedure Yes Yes Yes -Procedure Performed Yes Yes Yes -Type of Procedure Debridement Debridement Debridement -Clinical Debridement Subcutaneous Subcutaneous Subcutaneous -Post Debridement Size (cm) - Length 3.3 3.6 3.1 -Post Debridement Size (cm) - Width 1.0 1.1 1.1 -Post Debridement Size (cm) - Depth 0.2 0.4 0.4 -Total Square Cm 3.30 3.96 3.41 -Wound/Ulcer Outcome Not Healed Not Healed Not Healed -Ulcer Cleansing Rinsed/ Rinsed/ Rinsed/ Irrigated with Irrigated with Irrigated with Saline Saline Saline -Foul Odor after Cleansing No No No -Bioengineered Tissue No Yes Yes -Type of bioengineered Tissue EPIFIX EPIFIX -Expiration Date 12/08/22 12/08/22 -Product Lot Number [id number] -Percent Used 100 100 -Saline Lot Number NA NA -Topical Lidocaine (%) 4 4 -Lidocaine (ml) 5 5 -Bleeding Controlled with Pressure NA NA -Other biopsy x2 -Treatment Response Procedure Procedure Procedure Tolerated Well Tolerated Well Tolerated Well Pain Scale: 0-10 Numeric Is Patient Pain Free? 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 In the 1970's, she was diagnosed with malignant melanoma of the right calf, with metastasis to lymph nodes in the right groin. She underwent excision of the melanoma with right groin lymphadenectomy. She was subsequently treated with a long series of radiation treatments to the right groin. During the days of her radiation treatment, it is suspected that the radiation techniques were somewhat early in their evolution, and quite likely that the patient received massive doses of radiation exposure, exceeding doses which would be considered appropriate today, with techniques which are primitive by today's standards. As result, the patient has developed soft tissue radiation injury, and has previously been treated at our wound center in the past with a series of approximately 90 hyperbaric oxygen therapy treatments, in 2011. She presented with recurrence of soft tissue radionecrosis in the right groin. Hyperbaric oxygen therapy treatments were initiated, and the patient has undergone a series of 90 hyperbaric oxygen treatment sessions. She has shown mild benefit from the hyperbaric oxygen treatments. At this time, there is no clinical evidence of infection or cellulitis in the daniel-ulcer area. However, the patient is responding very slowly to the variety of conventional treatment measures which have been implemented. In review of the patient's past history, such has been the case previously, as each treatment course has been rather protracted and lengthy in nature to achieve ultimate healing. Plan: The patient has been the recipient of 10 EpiFix applications recently. We will now transition to the use of Mary, applied by the patient every other day. Patient will return in 1 week for reassessment. The patient is to continue with a nutritious diet. Biopsies of the ulceration have been obtained, and the results are negative for malignancy. We have discussed the possibility of seeking outside consultation with a plastic surgeon, perhaps that the [facility], or referring to the [facility]. The patient is open to such consideration. It is hoped that a second opinion at a tertiary care center may offer the patient options which may not be available at our facility. The patient's protracted course, and relative lack of response to hyperbaric oxygen therapy, skin substitutes, serial debridements, local wound care measures, etc., prompts consideration of referral for evaluation elsewhere for a second opinion and possible other recommendations regarding treatment options. The patient will return in 1 week for reassessment. Influenza vaccine was not administered today. The patient is not a smoker. She stands 5 feet 7 inches tall. She weighs 198 pounds. Her BMI is 31, which places her in a class I weight category. Weight loss has been recommended. She is to collaborate with her primary care physician in this regard.
--- NOTE | 2018-05-01 08:48 | HP.PCM_ITS ---
(1) History of uterine cancer Status: Chronic Current Visit: No Code(s): Z85.42 - Personal history of malignant neoplasm of other parts of uterus (2) History of melanoma Status: Chronic Current Visit: Yes Code(s): Z85.820 - Personal history of malignant melanoma of skin (3) Hyperlipidemia Status: Chronic Current Visit: No Code(s): E78.5 - Hyperlipidemia, unspecified (4) GERD (gastroesophageal reflux disease) Status: Chronic Current Visit: No Code(s): K21.9 - Gastro-esophageal reflux disease without esophagitis (5) Ulcer of right groin Status: Chronic Current Visit: Yes Qualifiers: Non-pressure ulcer stage: with fat layer exposed Code(s): L98.499 - Non-pressure chronic ulcer of skin of other sites with unspecified severity (6) Obesity (BMI 30.0-34.9) Status: Chronic Current Visit: No Code(s): E66.9 - Obesity, unspecified (7) Amputee, above knee Status: Chronic Current Visit: Yes Qualifiers: Laterality: right Code(s): Z89.619 - Acquired absence of unspecified leg above knee (8) Soft tissue radionecrosis Status: Chronic Current Visit: Yes Code(s): L59.8 - Other specified disorders of the skin and subcutaneous tissue related to radiation; Y84.2 - Radiological procedure and radiotherapy as the cause of abnormal reaction of the patient, or of later complication, without mention of misadventure at the time of the procedure (9) soft tissue radiation injury Status: Chronic Current Visit: Yes History of Present Illness Chief Complaint: 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 The patient underwent excision of her melanoma with lymphadenect sharmaine in the right groin. She also underwent lengthy radiation treatments at the [facility] in [place], [place]. Melanoma recurred, and the patient was subsequently treated with monoclonal antibodies in 1984. 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 Treatment included local ulcer care and hyperbaric oxygen therapy. She underwent a total of nearly 90 treatments of hyperbaric oxygen therapy. It is known that she tolerated the therapies well, and derived significant benefit. She relates no history of claustrophobia, or other complications related to the hyperbaric oxygen therapy treatments. She has no history of barotrauma to lungs, ears, etc. Her medical history has been reviewed, without any evidence of contraindications to hyperbaric oxygen therapy. Hyperbaric oxygen therapy has been administered for nearly 90 treatment sessions. We are currently using EpiFix allografts, and she has undergone 8 applications thus far. The patient's history suggests that the right groin wound in the past responded to hyperbaric oxygen therapy, but required 90 such sessions. It appears as though the patient's current clinical course is mimicking that of the past, with wound healing which is very recalcitrant to conventional treatment measures. 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 She is undergone excision of melanoma from the right calf, with lymphadenectomy of the right groin in the 1969's. She subsequently required surgeries of the right thigh related to osteomyelitis, MRSA infection, and radiation injury to the right femoral artery. Ultimately, the patient required right above-knee amputation, performed in 2000. She also has a remote history of open reduction and internal fixation of a right ankle fracture. Allergies/Adverse Reactions: Allergies No Known Allergies Allergy (Verified 06/20/17 09:22) Home Medications: Ambulatory Orders Medication Instructions Recorded Famotidine 20 mg PO 06/20/17 Pravastatin [Pravachol] 20 mg PO DAILY 06/20/17 - Family History Maternal - - The patient's mother is 98 years of age and relatively healthy. The patient's father at age of 79 with a history of cardiomyopathy. Smoking Status: Former smoker Tobacco Use: Non-smoker Review of Systems Constitutional: Denies: Chills, Fever, Weight Change Eyes: Denies: Pain, Vision Change HEENT: Denies: Difficulty Hearing, Difficulty Swallowing, Sinus Congestion Cardiovascular: Denies: Chest Pain, Palpitations Respiratory: Denies: Cough, Shortness of Breath Gastrointestinal: Denies: Diarrhea, Nausea, Vomiting Genitourinary: Denies: Dysuria, Hematuria Endocrine: Denies: Heat/ Cold Intolerance, Polydipsia, Polyuria Hematologic/ Lymphatic: Denies: Easy Bruising, Easy Bleeding - Physical Exam Vital Signs Temp Pulse Resp BP 97.7 F L 89 16 150/90 H 05/01/18 08:31 10 08:31 05/01/18 08:31 05/01/18 08:31 General: Alert, Oriented x3, Cooperative, No apparent distress, Well developed, Well nourished HEENT: Atraumatic, PERRLA, EOMI, Normocephalic Oral: Moist Mucosa Neck: No JVD Lungs: Normal air movement Abdomen: Non-Distended Extremities: No clubbing, No cyanosis, No edema, No Calf Tenderness, - - A well- healed right above-knee amputation stump is noted. The ulceration in the right groin is slightly improved. Dimensions are documented elsewhere. There is no obvious sign of infection or cellulitis. There is no surrounding redness or erythema. There is a mild amount of bioburden. The superior portion of the ulceration demonstrates the presence of fibrous tissue. The more inferior portion demonstrates signs of healthy, active granulation tissue. Skin: No rashes Wound Measurements and Assessment WC - Nurse 1 - General Ulcer Measurement Start: 04/10/18 08:11 Freq: Status: Active Protocol: Activity Type Activity Date Activity User E-Sign Co-Sign Detail Recorded Client Recorded Date Recorded By Document 05/01/18 08:31 DV [id number] 05/01/18 08:34 DV 05/01/18 08:31 Wound Center Nurse 1 [Ulcer Assessment] #5 R Groin -Combined with other wound No -Current Size (cm) - Length 3.2 -Current Size (cm) - Width 1.0 -Current Size (cm) - Depth 0.4 -Total Square Cm 3.20 -Photo Taken No -Epithelialization Small 1-33% -Tunneling No -Undermining/Tunneling No -Circular Undermining No -Classification - Thickness Full Thickness without Exposed Support Structure -Exudate Amt Small (1-33%) -Exudate Type Serous -Wound Margin Thickened -Granulation Amt None Present (0 %) -Granulation Quality N/A -Slough/Fibrin Yes -Necrosis Amt Medium (34-66%) -Necrotic Tissue Type Adherent Slough -Structure Exposed None/Limited to Skin Breakdown -Texture (Daniel-wound Skin Appearance) No Abnormality Assessed -Moisture (Daniel-wound Skin Appearance No Abnormality ) Assessed -Color (Daniel-wound Skin Appearance) No Abnormality Assessed -Temperature (Daniel-wound Skin No Abnormality Appearance) (Pt Warm) -Tenderness on Palpation (Daniel-wound No Skin Appearance) -Ulcer Cleansing Rinsed/ Irrigated with Saline -Foul Odor after Cleansing No -Anesthetic Used 5% Lidocaine Gel Musculoskeletal: No Muscle Wasting Neurological: Cranial nerves II-XII grossly intact, Neuro grossly intact Psych/Mental Status: Normal Affect, Appropriate, Alert and oriented to time, place, person, mood and affect Debridement Note Post-Debridement Measurements/Treatment WC - Nurse 2 - General Ulcer CM Notes Start: 04/10/18 08:11 Freq: Status: Active Protocol: Activity Type Activity Date Activity User E-Sign Co-Sign Detail Recorded Client Recorded Date Recorded By Document 04/10/18 08:37 DV [id number] 04/10/18 08:41 DV Document 04/17/18 08:23 JS [id number] 04/17/18 08:38 JS Document 04/24/18 08:28 [id number] 04/24/18 08:37 04/10/18 04/17/18 04/24/18 08:37 08:23 08:28 Wound Center Nurse 2 #5 R Groin -Time 08:41 08:23 08:28 -Correct Patient Yes Yes Yes -Correct Side, Site, Position Yes Yes Yes -Correct Procedure Yes Yes Yes -Procedure Performed Yes Yes Yes -Type of Procedure Debridement Debridement Debridement -Clinical Debridement Subcutaneous Subcutaneous Subcutaneous -Post Debridement Size (cm) - Length 3.3 3.6 3.1 -Post Debridement Size (cm) - Width 1.0 1.1 1.1 -Post Debridement Size (cm) - Depth 0.2 0.4 0.4 -Total Square Cm 3.30 3.96 3.41 -Wound/Ulcer Outcome Not Healed Not Healed Not Healed -Ulcer Cleansing Rinsed/ Rinsed/ Rinsed/ Irrigated with Irrigated with Irrigated with Saline Saline Saline -Foul Odor after Cleansing No No No -Bioengineered Tissue No Yes Yes -Type of bioengineered Tissue EPIFIX EPIFIX -Expiration Date 12/08/22 12/08/22 -Product Lot Number [id number] -Percent Used 100 100 -Saline Lot Number NA NA -Topical Lidocaine (%) 4 4 -Lidocaine (ml) 5 5 -Bleeding Controlled with Pressure NA NA -Other biopsy x2 -Treatment Response Procedure Procedure Procedure Tolerated Well Tolerated Well Tolerated Well Pain Scale: 0-10 Numeric Is Patient Pain Free? 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 In the 1970's, she was diagnosed with malignant melanoma of the right calf, with metastasis to lymph nodes in the right groin. She underwent excision of the melanoma with right groin lymphadenectomy. She was subsequently treated with a long series of radiation treatments to the right groin. During the days of her radiation treatment, it is suspected that the radiation techniques were somewhat early in their evolution, and quite likely that the patient received massive doses of radiation exposure, exceeding doses which would be considered appropriate today, with techniques which are primitive by today's standards. As result, the patient has developed soft tissue radiation injury, and has previously been treated at our wound center in the past with a series of approximately 90 hyperbaric oxygen therapy treatments, in 2011. She presented with recurrence of soft tissue radionecrosis in the right groin. Hyperbaric oxygen therapy treatments were initiated, and the patient has undergone a series of 90 hyperbaric oxygen treatment sessions. She has shown mild benefit from the hyperbaric oxygen treatments. At this time, there is no clinical evidence of infection or cellulitis in the daniel-ulcer area. However, the patient is responding very slowly to the variety of conventional treatment measures which have been implemented. In review of the patient's past history, such has been the case previously, as each treatment course has been rather protracted and lengthy in nature to achieve ultimate healing. Plan: The patient has been the recipient of 10 EpiFix applications recently. We will now transition to the use of Mary, applied by the patient every other day. Patient will return in 1 week for reassessment. The patient is to continue with a nutritious diet. Biopsies of the ulceration have been obtained, and the results are negative for malignancy. We have discussed the possibility of seeking outside consultation with a plastic surgeon, perhaps that the [facility], or referring to the [facility]. The patient is open to such consideration. It is hoped that a second opinion at a tertiary care center may offer the patient options which may not be available at our facility. The patient's protracted course, and relative lack of response to hyperbaric oxygen therapy, skin substitutes, serial debridements, local wound care measures, etc., prompts consideration of referral for evaluation elsewhere for a second opinion and possible other recommendations regarding treatment options. The patient will return in 1 week for reassessment. Influenza vaccine was not administered today. The patient is not a smoker. She stands 5 feet 7 inches tall. She weighs 198 pounds. Her BMI is 31, which places her in a class I weight category. Weight loss has been recommended. She is to collaborate with her primary care physician in this regard.
== END 2018-05-09 23:59 ==
LOC: WC 08:00
PROVIDERS: Family Provider Family Medicine; PCP Family Medicine; Visit Provider Surgery
DX: L59.8 Other specified disorders of the skin and subcutaneous tissue related to radiation (principal); Y84.2 Radiological procedure and radiotherapy as the cause of abnormal reaction of the patient, or of later complication, without mention of misadventure at the time of the procedure; E66.9 Obesity, unspecified; Z71.3 Dietary counseling and surveillance; K21.9 Gastro-esophageal reflux disease without esophagitis; E78.5 Hyperlipidemia, unspecified; Z85.820 Personal history of malignant melanoma of skin; Z85.42 Personal history of malignant neoplasm of other parts of uterus; Z89.611 Acquired absence of right leg above knee; Z87.891 Personal history of nicotine dependence; L98.492 Non-pressure chronic ulcer of skin of other sites with fat layer exposed; Z68.31 Body mass index [BMI] 31.0-31.9, adult
CPT/HCPCS: 11042; 15271; 88304; 88305; Q4131

== ENCOUNTER 2018-06-05 08:00 | Outpatient (RCR) | payer OTHER, SELFPAY ==
[2018-05-10 00:46] VITALS: BP 150/90; PULSE 89; RESP 16; TEMP 36.5; BMI 68.3
[2018-05-22 08:12] VITALS: BP 140/87; PULSE 95; RESP 18; TEMP 36.3; BMI 68.3
--- NOTE | 2018-05-22 08:35 | PCM.WC.HP ---
(1) History of uterine cancer Status: Chronic Current Visit: No Code(s): Z85.42 - Personal history of malignant neoplasm of other parts of uterus (2) History of melanoma Status: Chronic Current Visit: Yes Code(s): Z85.820 - Personal history of malignant melanoma of skin (3) Hyperlipidemia Status: Chronic Current Visit: No Code(s): E78.5 - Hyperlipidemia, unspecified (4) GERD (gastroesophageal reflux disease) Status: Chronic Current Visit: No Code(s): K21.9 - Gastro-esophageal reflux disease without esophagitis (5) Ulcer of right groin Status: Chronic Current Visit: Yes Qualifiers: Non-pressure ulcer stage: with fat layer exposed Code(s): L98.499 - Non-pressure chronic ulcer of skin of other sites with unspecified severity (6) Obesity (BMI 30.0-34.9) Status: Chronic Current Visit: No Code(s): E66.9 - Obesity, unspecified (7) Amputee, above knee Status: Chronic Current Visit: Yes Qualifiers: Laterality: right Code(s): Z89.619 - Acquired absence of unspecified leg above knee (8) Soft tissue radionecrosis Status: Chronic Current Visit: Yes Code(s): L59.8 - Other specified disorders of the skin and subcutaneous tissue related to radiation; Y84.2 - Radiological procedure and radiotherapy as the cause of abnormal reaction of the patient, or of later complication, without mention of misadventure at the time of the procedure (9) soft tissue radiation injury Status: Chronic Current Visit: Yes History of Present Illness Chief Complaint: 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 The patient underwent excision of her melanoma with lymphadenectomy in the right groin. She also underwent lengthy radiation treatments at the [facility] in [place], [place]. Melanoma recurred, and the patient was subsequently treated with monoclonal antibodies in 1984. 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 In 2012, the patient was treated in our wound center for ulcerations of the right upper thigh and groin related to soft tissue radiation necrosis. Treatment included local ulcer care and hyperbaric oxygen therapy. She underwent a total of nearly 90 treatments of hyperbaric oxygen therapy. It is known that she tolerated the therapies well, and derived significant benefit. She relates no history of claustrophobia, or other complications related to the hyperbaric oxygen therapy treatments. She has no history of barotrauma to lungs, ears, etc. Her medical history has been reviewed, without any evidence of contraindications to hyperbaric oxygen therapy. Hyperbaric oxygen therapy has been administered for nearly 90 treatment sessions. We are currently using EpiFix allografts, and she has undergone 8 applications thus far. The patient's history suggests that the right groin wound in the past responded to hyperbaric oxygen therapy, but required 90 such sessions. It appears as though the patient's current clinical course is mimicking that of the past, with wound healing which is very recalcitrant to conventional treatment measures. 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 She is undergone excision of melanoma from the right calf, with lymphadenectomy of the right groin in the 1969's. She subsequently required surgeries of the right thigh related to osteomyelitis, MRSA infection, and radiation injury to the right femoral artery. Ultimately, the patient required right above-knee amputation, performed in 2000. She also has a remote history of open reduction and internal fixation of a right ankle fracture. Allergies/Adverse Reactions: Allergies No Known Allergies Allergy (Verified 06/20/17 09:22) Home Medications: Ambulatory Orders Medication Instructions Recorded Famotidine 20 mg PO 06/20/17 Pravastatin [Pravachol] 20 mg PO DAILY 06/20/17 - Family History Maternal - - The patient's mother is 98 years of age and relatively healthy. The patient's father at age of 79 with a history of cardiomyopathy. Smoking Status: Former smoker Tobacco Use: Non-smoker Review of Systems Constitutional: Denies: Chills, Fever, Weight Change Eyes: Denies: Pain, Vision Change HEENT: Denies: Difficulty Hearing, Difficulty Swallowing, Sinus Congestion Cardiovascular: Denies: Chest Pain, Palpitations Respiratory: Denies: Cough, Shortness of Breath Gastrointestinal: Denies: Diarrhea, Nausea, Vomiting Genitourinary: Denies: Dysuria, Hematuria Endocrine: Denies: Heat/ Cold Intolerance, Polydipsia, Polyuria Hematologic/ Lymphatic: Denies: Easy Bruising, Easy Bleeding - Physical Exam Vital Signs Temp Pulse Resp BP 97.3 F L 95 18 140/87 H 05/22/18 08:12 05/22/18 08:12 05/22/18 08:12 05/22/18 08:12 General: Alert, Oriented x3, Cooperative, No apparent distress, Well developed, Well nourished HEENT: Atraumatic, PERRLA, EOMI, Normocephalic Oral: Moist Mucosa Neck: No JVD Lungs: Normal air movement Abdomen: Non-Distended Extremities: No clubbing, No cyanosis, No edema, No Calf Tenderness, - - Well-healed right above-knee amputation stump is noted. Skin: No rashes, - - The ulceration in the right groin persists. It appears slightly smaller in size. Dimensions are documented elsewhere. There is a moderate amount of bioburden. Ulcer margins are not well beveled. There is no obvious sign of infection or cellulitis Wound Measurements and Assessment WC - Nurse 1 - General Ulcer Measurement Start: 05/22/18 08:12 Freq: Status: Active Protocol: Activity Type Activity Date Activity User E-Sign Co-Sign Detail Recorded Client Recorded Date Recorded By Document 05/22/18 08:12 [id number] 05/22/18 08:20 DL 05/22/18 08:12 Wound Center Nurse 1 [Ulcer Assessment] #5 R Groin -Current Size (cm) - Length 3 -Current Size (cm) - Width 0.8 -Current Size (cm) - Depth 0.3 -Total Square Cm 2.4 -Photo Taken Yes -Exudate Amt Medium (34-66%) -Exudate Type Serosanguineous -Wound Margin Thickened & Rolled Under -Granulation Amt Medium (34-66%) -Granulation Quality Pale [place] -Necrosis Amt Medium (34-66%) -Necrotic Tissue Type Adherent Slough -Texture (Daniel-wound Skin Appearance) Scarring -Moisture (Daniel-wound Skin Appearance Maceration ) -Color (Daniel-wound Skin Appearance) No Abnormality -Temperature (Daniel-wound Skin No Abnormality Appearance) (Pt Warm) -Ulcer Cleansing Rinsed/ Irrigated with Saline -Foul Odor after Cleansing No -Anesthetic Used 4% Lidocaine Solution - Nurse 2 - General Ulcer CM Notes Start: 05/22/18 08:12 Freq: Status: Active Protocol: Activity Type Activity Date Activity User E-Sign Co-Sign Detail Recorded Client Recorded Date Recorded By Document 05/22/18 08:31 [id number] 05/22/18 08:33 05/22/18 08:31 Wound Center Nurse 2 [Procedure/Treatment] -Time 08:31 -Correct Patient Yes -Correct Side, Site, Position Yes -Correct Procedure Yes -Procedure Performed Yes -Type of Procedure Debridement -Clinical Debridement Subcutaneous -Post Debridement Size (cm) - Length 3.2 -Post Debridement Size (cm) - Width 1.0 -Post Debridement Size (cm) - Depth 0.4 -Total Square Cm 3.20 -Wound/Ulcer Outcome Not Healed -Ulcer Cleansing Rinsed/ Irrigated with Saline -Foul Odor after Cleansing No -Bioengineered Tissue No -Topical Lidocaine (%) 4 -Lidocaine (ml) 5 -Bleeding Controlled with NA -Treatment Response Procedure Tolerated Well [See Physician Procedure note for Specifics] Pain Scale: 0-10 Numeric [Pain] -Is Patient Pain Free? Yes Musculoskeletal: No Muscle Wasting Neurological: Cranial nerves II-XII grossly intact, Neuro grossly intact Psych/Mental Status: Normal Affect, Appropriate, Alert and oriented to time, place, person, mood and affect Debridement Note Post-Debridement Measurements/Treatment - Nurse 2 - General Ulcer CM Notes Start: 05/22/18 08:12 Freq: Status: Active Protocol: Activity Type Activity Date Activity User E-Sign Co-Sign Detail Recorded Client Recorded Date Recorded By Document 05/22/18 08:31 [id number] 05/22/18 08:33 05/22/18 08:31 Wound Center Nurse 2 #5 R Groin -Time 08:31 -Correct Patient Yes -Correct Side, Site, Position Yes -Correct Procedure Yes -Procedure Performed Yes -Type of Procedure Debridement -Clinical Debridement Subcutaneous -Post Debridement Size (cm) - Length 3.2 -Post Debridement Size (cm) - Width 1.0 -Post Debridement Size (cm) - Depth 0.4 -Total Square Cm 3.20 -Wound/Ulcer Outcome Not Healed -Ulcer Cleansing Rinsed/ Irrigated with Saline -Foul Odor after Cleansing No -Bioengineered Tissue No -Topical Lidocaine (%) 4 -Lidocaine (ml) 5 -Bleeding Controlled with NA -Treatment Response Procedure Tolerated Well Pain Scale: 0-10 Numeric Is Patient Pain Free? 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 In the 1970's, she was diagnosed with malignant melanoma of the right calf, with metastasis to lymph nodes in the right groin. She underwent excision of the melanoma with right groin lymphadenectomy. She was subsequently treated with a long series of radiation treatments to the right groin. During the days of her radiation treatment, it is suspected that the radiation techniques were somewhat early in their evolution, and quite likely that the patient received massive doses of radiation exposure, exceeding doses which would be considered appropriate today, with techniques which are primitive by today's standards. As result, the patient has developed soft tissue radiation injury, and has previously been treated at our wound center in the past with a series of approximately 90 hyperbaric oxygen therapy treatments, in 2012. She presented with recurrence of soft tissue radionecrosis in the right groin. Hyperbaric oxygen therapy treatments were initiated, and the patient has undergone a series of 90 hyperbaric oxygen treatment sessions. She has shown mild benefit from the hyperbaric oxygen treatments. At this time, there is no clinical evidence of infection or cellulitis in the daniel-ulcer area. However, the patient is responding very slowly to the variety of conventional treatment measures which have been implemented. In review of the patient's past history, such has been the case previously, as each treatment course has been rather protracted and lengthy in nature to achieve ultimate healing. The patient was seen and evaluated in consultation at [facility] 2 weeks ago (Dr. Harding), which had been arranged by our facility. Unfortunately, we have received no written records of that consultation. According to the patient, she was told that everything looks appropriate, and that we should stay the course. Her right groin ulceration was cultured, and based upon the culture results she was placed on topical Bactroban, with continuation of Mary. Plan: The patient has been the recipient of 10 EpiFix applications recently. We have transitioned to the use of Mary, applied by the patient every other day. We will continue the use of Bactroban topically, which was initiated recently by [facility]. No other recommendations of significance were elucidated. We are to request a written record of the patient's consultation. The patient will return in 1 week for reassessment. The patient is to continue with a nutritious diet. Biopsies of the ulceration have been obtained, and the results are negative for malignancy. The patient will return in 1 week for reassessment. Influenza vaccine was not administered today. The patient is not a smoker. She stands 5 feet 7 inches tall. She weighs 198 pounds. Her BMI is 31, which places her in a class I weight category. Weight loss has been recommended. She is to collaborate with her primary care physician in this regard.
--- NOTE | 2018-05-22 08:42 | HP.PCM_ITS ---
(1) History of uterine cancer Status: Chronic Current Visit: No Code(s): Z85.42 - Personal history of malignant neoplasm of other parts of uterus (2) History of melanoma Status: Chronic Current Visit: Yes Code(s): Z85.820 - Personal history of malignant melanoma of skin (3) Hyperlipidemia Status: Chronic Current Visit: No Code(s): E78.5 - Hyperlipidemia, unspecified (4) GERD (gastroesophageal reflux disease) Status: Chronic Current Visit: No Code(s): K21.9 - Gastro-esophageal reflux disease without esophagitis (5) Ulcer of right groin Status: Chronic Current Visit: Yes Qualifiers: Non-pressure ulcer stage: with fat layer exposed Code(s): L98.499 - Non-pressure chronic ulcer of skin of other sites with unspecified severity (6) Obesity (BMI 30.0-34.9) Status: Chronic Current Visit: No Code(s): E66.9 - Obesity, unspecified (7) Amputee, above knee Status: Chronic Current Visit: Yes Qualifiers: Laterality: right Code(s): Z89.619 - Acquired absence of unspecified leg above knee (8) Soft tissue radionecrosis Status: Chronic Current Visit: Yes Code(s): L59.8 - Other specified disorders of the skin and subcutaneous tissue related to radiation; Y84.2 - Radiological procedure and radiotherapy as the cause of abnormal reaction of the patient, or of later complication, without mention of misadventure at the time of the procedure (9) soft tissue radiation injury Status: Chronic Current Visit: Yes History of Present Illness Chief Complaint: 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 The patient underwent excision of her melanoma with lymphadenect sharmaine in the right groin. She also underwent lengthy radiation treatments at the [facility] in [place], [place]. Melanoma recurred, and the patient was subsequently treated with monoclonal antibodies in 1984. 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 Treatment included local ulcer care and hyperbaric oxygen therapy. She underwent a total of nearly 90 treatments of hyperbaric oxygen therapy. It is known that she tolerated the therapies well, and derived significant benefit. She relates no history of claustrophobia, or other complications related to the hyperbaric oxygen therapy treatments. She has no history of barotrauma to lungs, ears, etc. Her medical history has been reviewed, without any evidence of contraindications to hyperbaric oxygen therapy. Hyperbaric oxygen therapy has been administered for nearly 90 treatment sessions. We are currently using EpiFix allografts, and she has undergone 8 applications thus far. The patient's history suggests that the right groin wound in the past responded to hyperbaric oxygen therapy, but required 90 such sessions. It appears as though the patient's current clinical course is mimicking that of the past, with wound healing which is very recalcitrant to conventional treatment measures. 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 She is undergone excision of melanoma from the right calf, with lymphadenectomy of the right groin in the 1969's. She subsequently required surgeries of the right thigh related to osteomyelitis, MRSA infection, and radiation injury to the right femoral artery. Ultimately, the patient required right above-knee amputation, performed in 2000. She also has a remote history of open reduction and internal fixation of a right ankle fracture. Allergies/Adverse Reactions: Allergies No Known Allergies Allergy (Verified 06/20/17 09:22) Home Medications: Ambulatory Orders Medication Instructions Recorded Famotidine 20 mg PO 06/20/17 Pravastatin [Pravachol] 20 mg PO DAILY 06/20/17 - Family History Maternal - - The patient's mother is 98 years of age and relatively healthy. The patient's father at age of 79 with a history of cardiomyopathy. Smoking Status: Former smoker Tobacco Use: Non-smoker Review of Systems Constitutional: Denies: Chills, Fever, Weight Change Eyes: Denies: Pain, Vision Change HEENT: Denies: Difficulty Hearing, Difficulty Swallowing, Sinus Congestion Cardiovascular: Denies: Chest Pain, Palpitations Respiratory: Denies: Cough, Shortness of Breath Gastrointestinal: Denies: Diarrhea, Nausea, Vomiting Genitourinary: Denies: Dysuria, Hematuria Endocrine: Denies: Heat/ Cold Intolerance, Polydipsia, Polyuria Hematologic/ Lymphatic: Denies: Easy Bruising, Easy Bleeding - Physical Exam Vital Signs Temp Pulse Resp BP 97.3 F L 95 18 140/87 H 05/22/18 08:12 05/22/18 08:12 05/22/18 08:12 05/22/18 08:12 General: Alert, Oriented x3, Cooperative, No apparent distress, Well developed, Well nourished HEENT: Atraumatic, PERRLA, EOMI, Normocephalic Oral: Moist Mucosa Neck: No JVD Lungs: Normal air movement Abdomen: Non-Distended Extremities: No clubbing, No cyanosis, No edema, No Calf Tenderness, - - Well- healed right above-knee amputation stump is noted. Skin: No rashes, - - The ulceration in the right groin persists. It appears slightly smaller in size. Dimensions are documented elsewhere. There is a moderate amount of bioburden. Ulcer margins are not well beveled. There is no obvious sign of infection or cellulitis Wound Measurements and Assessment WC - Nurse 1 - General Ulcer Measurement Start: 05/22/18 08:12 Freq: Status: Active Protocol: Activity Type Activity Date Activity User E-Sign Co-Sign Detail Recorded Client Recorded Date Recorded By Document 05/22/18 08:12 [id number] 05/22/18 08:20 DL 05/22/18 08:12 Wound Center Nurse 1 [Ulcer Assessment] #5 R Groin -Current Size (cm) - Length 3 -Current Size (cm) - Width 0.8 -Current Size (cm) - Depth 0.3 -Total Square Cm 2.4 -Photo Taken Yes -Exudate Amt Medium (34-66%) -Exudate Type Serosanguineous -Wound Margin Thickened & Rolled Under -Granulation Amt Medium (34-66%) -Granulation Quality Pale [place] -Necrosis Amt Medium (34-66%) -Necrotic Tissue Type Adherent Slough -Texture (Blanche-wound Skin Appearance) Scarring -Moisture (Blanche-wound Skin Appearance Maceration ) -Color (Blanche-wound Skin Appearance) No Abnormality -Temperature (Blanche-wound Skin No Abnormality Appearance) (Pt Warm) -Ulcer Cleansing Rinsed/ Irrigated with Saline -Foul Odor after Cleansing No -Anesthetic Used 4% Lidocaine Solution - Nurse 2 - General Ulcer CM Notes Start: 05/22/18 08:12 Freq: Status: Active Protocol: Activity Type Activity Date Activity User E-Sign Co-Sign Detail Recorded Client Recorded Date Recorded By Document 05/22/18 08:31 [id number] 05/22/18 08:33 05/22/18 08:31 Wound Center Nurse 2 [Procedure/Treatment] -Time 08:31 -Correct Patient Yes -Correct Side, Site, Position Yes -Correct Procedure Yes -Procedure Performed Yes -Type of Procedure Debridement -Clinical Debridement Subcutaneous -Post Debridement Size (cm) - Length 3.2 -Post Debridement Size (cm) - Width 1.0 -Post Debridement Size (cm) - Depth 0.4 -Total Square Cm 3.20 -Wound/Ulcer Outcome Not Healed -Ulcer Cleansing Rinsed/ Irrigated with Saline -Foul Odor after Cleansing No -Bioengineered Tissue No -Topical Lidocaine (%) 4 -Lidocaine (ml) 5 -Bleeding Controlled with NA -Treatment Response Procedure Tolerated Well [See Physician Procedure note for Specifics] Pain Scale: 0-10 Numeric [Pain] -Is Patient Pain Free? Yes Musculoskeletal: No Muscle Wasting Neurological: Cranial nerves II-XII grossly intact, Neuro grossly intact Psych/Mental Status: Normal Affect, Appropriate, Alert and oriented to time, place, person, mood and affect Debridement Note Post-Debridement Measurements/Treatment - Nurse 2 - General Ulcer CM Notes Start: 05/22/18 08:12 Freq: Status: Active Protocol: Activity Type Activity Date Activity User E-Sign Co-Sign Detail Recorded Client Recorded Date Recorded By Document 05/22/18 08:31 [id number] 05/22/18 08:33 05/22/18 08:31 Wound Center Nurse 2 #5 R Groin -Time 08:31 -Correct Patient Yes -Correct Side, Site, Position Yes -Correct Procedure Yes -Procedure Performed Yes -Type of Procedure Debridement -Clinical Debridement Subcutaneous -Post Debridement Size (cm) - Length 3.2 -Post Debridement Size (cm) - Width 1.0 -Post Debridement Size (cm) - Depth 0.4 -Total Square Cm 3.20 -Wound/Ulcer Outcome Not Healed -Ulcer Cleansing Rinsed/ Irrigated with Saline -Foul Odor after Cleansing No -Bioengineered Tissue No -Topical Lidocaine (%) 4 -Lidocaine (ml) 5 -Bleeding Controlled with NA -Treatment Response Procedure Tolerated Well Pain Scale: 0-10 Numeric Is Patient Pain Free? 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 In the 1970's, she was diagnosed with malignant melanoma of the right calf, with metastasis to lymph nodes in the right groin. She underwent excision of the melanoma with right groin lymphadenectomy. She was subsequently treated with a long series of radiation treatments to the right groin. During the days of her radiation treatment, it is suspected that the radiation techniques were somewhat early in their evolution, and quite likely that the patient received massive doses of radiation exposure, exceeding doses which would be considered appropriate today, with techniques which are primitive by today's standards. As result, the patient has developed soft tissue radiation injury, and has previously been treated at our wound center in the past with a series of approximately 90 hyperbaric oxygen therapy treatments, in 2011. She presented with recurrence of soft tissue radionecrosis in the right groin. Hyperbaric oxygen therapy treatments were initiated, and the patient has undergone a series of 90 hyperbaric oxygen treatment sessions. She has shown mild benefit from the hyperbaric oxygen anita tments. At this time, there is no clinical evidence of infection or cellulitis in the blanche-ulcer area. However, the patient is responding very slowly to the variety of conventional treatment measures which have been implemented. In review of the patient's past history, such has been the case previously, as each treatment course has been rather protracted and lengthy in nature to achieve ultimate healing. The patient was seen and evaluated in consultation at [facility] 2 weeks ago (Dr. Harding), which had been arranged by our facility. Unfortunately, we have received no written records of that consultation. According to the patient, she was told that everything looks appropriate, and that we should stay the course. Her right groin ulceration was cultured, and based upon the culture results she was placed on topical Bactroban, with continuation of Mary. Plan: The patient has been the recipient of 10 EpiFix applications recently. We have transitioned to the use of Mary, applied by the patient every other day. We will continue the use of Bactroban topically, which was initiated recently by [facility]. No other recommendations of significance were elucidated. We are to request a written record of the patient's consultation. The patient will return in 1 week for reassessment. The patient is to continue with a nutritious diet. Biopsies of the ulceration have been obtained, and the results are negative for malignancy. The patient will return in 1 week for reassessment. Influenza vaccine was not administered today. The patient is not a smoker. She stands 5 feet 7 inches tall. She weighs 198 pounds. Her BMI is 31, which places her in a class I weight category. Weight loss has been recommended. She is to collaborate with her primary care physician in this regard.
[2018-05-29 08:12] VITALS: BP 162/88; PULSE 97; RESP 16; TEMP 35.5; BMI 68.3
--- NOTE | 2018-05-29 08:42 | PCM.WC.HP ---
(1) History of uterine cancer Status: Chronic Current Visit: No Code(s): Z85.42 - Personal history of malignant neoplasm of other parts of uterus (2) History of melanoma Status: Chronic Current Visit: Yes Code(s): Z85.820 - Personal history of malignant melanoma of skin (3) Hyperlipidemia Status: Chronic Current Visit: No Code(s): E78.5 - Hyperlipidemia, unspecified (4) GERD (gastroesophageal reflux disease) Status: Chronic Current Visit: No Code(s): K21.9 - Gastro-esophageal reflux disease without esophagitis (5) Ulcer of right groin Status: Chronic Current Visit: Yes Qualifiers: Non-pressure ulcer stage: with fat layer exposed Code(s): L98.499 - Non-pressure chronic ulcer of skin of other sites with unspecified severity (6) Obesity (BMI 30.0-34.9) Status: Chronic Current Visit: No Code(s): E66.9 - Obesity, unspecified (7) Amputee, above knee Status: Chronic Current Visit: Yes Qualifiers: Laterality: right Code(s): Z89.619 - Acquired absence of unspecified leg above knee (8) Soft tissue radionecrosis Status: Chronic Current Visit: Yes Code(s): L59.8 - Other specified disorders of the skin and subcutaneous tissue related to radiation; Y84.2 - Radiological procedure and radiotherapy as the cause of abnormal reaction of the patient, or of later complication, without mention of misadventure at the time of the procedure (9) soft tissue radiation injury Status: Chronic Current Visit: Yes History of Present Illness Chief Complaint: 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 The patient underwent excision of her melanoma with lymphadenectomy in the right groin. She also underwent lengthy radiation treatments at the [facility] in [place], [place]. Melanoma recurred, and the patient was subsequently treated with monoclonal antibodies in 1984. 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 In 2012, the patient was treated in our wound center for ulcerations of the right upper thigh and groin related to soft tissue radiation necrosis. Treatment included local ulcer care and hyperbaric oxygen therapy. She underwent a total of nearly 90 treatments of hyperbaric oxygen therapy. It is known that she tolerated the therapies well, and derived significant benefit. She relates no history of claustrophobia, or other complications related to the hyperbaric oxygen therapy treatments. She has no history of barotrauma to lungs, ears, etc. Her medical history has been reviewed, without any evidence of contraindications to hyperbaric oxygen therapy. Hyperbaric oxygen therapy has been administered for nearly 90 treatment sessions. We are currently using EpiFix allografts, and she has undergone 8 applications thus far. The patient's history suggests that the right groin wound in the past responded to hyperbaric oxygen therapy, but required 90 such sessions. It appears as though the patient's current clinical course is mimicking that of the past, with wound healing which is very recalcitrant to conventional treatment measures. 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 She is undergone excision of melanoma from the right calf, with lymphadenectomy of the right groin in the 1969's. She subsequently required surgeries of the right thigh related to osteomyelitis, MRSA infection, and radiation injury to the right femoral artery. Ultimately, the patient required right above-knee amputation, performed in 2000. She also has a remote history of open reduction and internal fixation of a right ankle fracture. Allergies/Adverse Reactions: Allergies No Known Allergies Allergy (Verified 06/20/17 09:22) Home Medications: Ambulatory Orders Medication Instructions Recorded Famotidine 20 mg PO 06/20/17 Pravastatin [Pravachol] 20 mg PO DAILY 06/20/17 - Family History Maternal - - The patient's mother is 98 years of age and relatively healthy. The patient's father at age of 79 with a history of cardiomyopathy. Smoking Status: Former smoker Tobacco Use: Non-smoker Review of Systems Constitutional: Denies: Chills, Fever, Weight Change Eyes: Denies: Pain, Vision Change HEENT: Denies: Difficulty Hearing, Difficulty Swallowing, Sinus Congestion Cardiovascular: Denies: Chest Pain, Palpitations Respiratory: Denies: Cough, Shortness of Breath Gastrointestinal: Denies: Diarrhea, Nausea, Vomiting Genitourinary: Denies: Dysuria, Hematuria Endocrine: Denies: Heat/ Cold Intolerance, Polydipsia, Polyuria Hematologic/ Lymphatic: Denies: Easy Bruising, Easy Bleeding - Physical Exam Vital Signs Temp Pulse Resp BP 96 F L 97 16 162/88 H 05/29/18 08:12 05/29/18 08:12 05/29/18 08:12 05/29/18 08:12 General: Alert, Oriented x3, Cooperative, No apparent distress, Well developed, Well nourished HEENT: Atraumatic, PERRLA, EOMI, Normocephalic Oral: Moist Mucosa Neck: No JVD Lungs: Normal air movement Abdomen: Non-Distended Extremities: No clubbing, No cyanosis, No edema, No Calf Tenderness, - - A well-healed right above-knee amputation stump is noted. The ulceration in the right groin is slightly smaller in size. The base of the ulceration is generally pink and healthy in appearance, with a moderate amount of bioburden. There is no sign of infection or cellulitis. Ulcer dimensions are documented elsewhere. Ulcer margins are not well beveled. Skin: No rashes Wound Measurements and Assessment WC - Nurse 1 - General Ulcer Measurement Start: 05/22/18 08:12 Freq: Status: Active Protocol: Activity Type Activity Date Activity User E-Sign Co-Sign Detail Recorded Client Recorded Date Recorded By Document 05/29/18 08:12 [facility] [id number] 05/29/18 08:20 [facility] 05/29/18 08:12 Wound Center Nurse 1 [Ulcer Assessment] #5 R Groin -Combined with other wound No -Current Size (cm) - Length 2.1 -Current Size (cm) - Width 0.8 -Current Size (cm) - Depth 0.4 -Total Square Cm 1.68 -Date of Last Picture (Recall this 05/29/18 field) -Photo Taken Yes -Epithelialization Small 1-33% -Tunneling No -Undermining/Tunneling No -Circular Undermining No -Exudate Amt Small (1-33%) -Exudate Type Serous -Wound Margin Distinct, Outline Attached -Granulation Amt Small (1-33%) -Granulation Quality Smiley -Slough/Fibrin Yes -Necrosis Amt Large (67-100%) -Necrotic Tissue Type Adherent Slough -Texture (Daniel-wound Skin Appearance) Scarring -Moisture (Daniel-wound Skin Appearance Dry/Scaly ) -Color (Daniel-wound Skin Appearance) Assessed -Temperature (Daniel-wound Skin No Abnormality Appearance) (Pt Warm) -Tenderness on Palpation (Daniel-wound No Skin Appearance) -Ulcer Cleansing Rinsed/ Irrigated with Saline -Foul Odor after Cleansing No -Anesthetic Used 5% Lidocaine Gel WC - Nurse 2 - General Ulcer CM Notes Start: 05/22/18 08:12 Freq: Status: Active Protocol: Activity Type Activity Date Activity User E-Sign Co-Sign Detail Recorded Client Recorded Date Recorded By Document 05/29/18 08:32 [facility] [id number] 05/29/18 08:35 KE[facility] 05/29/18 08:32 Wound Center Nurse 2 [Procedure/Treatment] -Time 08:33 -Correct Patient Yes -Correct Side, Site, Position Yes -Correct Procedure Yes -Procedure Performed Yes -Type of Procedure Debridement -Clinical Debridement Subcutaneous -Post Debridement Size (cm) - Length 2.9 -Post Debridement Size (cm) - Width 1.0 -Post Debridement Size (cm) - Depth 0.4 -Total Square Cm 2.90 -Wound/Ulcer Outcome Not Healed -Ulcer Cleansing Rinsed/ Irrigated with Saline -Foul Odor after Cleansing No -Bioengineered Tissue No -Topical Lidocaine (%) 4 -Lidocaine (ml) 5 -Bleeding Controlled with NA -Treatment Response Procedure Tolerated Well [See Physician Procedure note for Specifics] Pain Scale: 0-10 Numeric [Pain] -Is Patient Pain Free? Yes Musculoskeletal: No Muscle Wasting Neurological: Cranial nerves II-XII grossly intact, Neuro grossly intact Psych/Mental Status: Normal Affect, Appropriate, Alert and oriented to time, place, person, mood and affect Debridement Note Post-Debridement Measurements/Treatment WC - Nurse 2 - General Ulcer CM Notes Start: 05/22/18 08:12 Freq: Status: Active Protocol: Activity Type Activity Date Activity User E-Sign Co-Sign Detail Recorded Client Recorded Date Recorded By Document 05/22/18 08:31 [id number] 05/22/18 08:33 JS Document 05/29/18 08:32 [id number] 05/29/18 08:35 JS 05/22/18 05/29/18 08:31 08:32 Wound Center Nurse 2 #5 R Groin -Time 08: 08:33 -Correct Patient Yes Yes -Correct Side, Site, Position Yes Yes -Correct Procedure Yes Yes -Procedure Performed Yes Yes -Type of Procedure Debridement Debridement -Clinical Debridement Subcutaneous Subcutaneous -Post Debridement Size (cm) - Length 3.2 2.9 -Post Debridement Size (cm) - Width 1.0 1.0 -Post Debridement Size (cm) - Depth 0.4 0.4 -Total Square Cm 3.20 2.90 -Wound/Ulcer Outcome Not Healed Not Healed -Ulcer Cleansing Rinsed/ Rinsed/ Irrigated with Irrigated with Saline Saline -Foul Odor after Cleansing No No -Bioengineered Tissue No No -Topical Lidocaine (%) 4 4 -Lidocaine (ml) 5 5 -Bleeding Controlled with NA NA -Treatment Response Procedure Procedure Tolerated Well Tolerated Well Pain Scale: 0-10 Numeric Is Patient Pain Free? 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 In the 1969's, she was diagnosed with malignant melanoma of the right calf, with metastasis to lymph nodes in the right groin. She underwent excision of the melanoma with right groin lymphadenectomy. She was subsequently treated with a long series of radiation treatments to the right groin. During the days of her radiation treatment, it is suspected that the radiation techniques were somewhat early in their evolution, and quite likely that the patient received massive doses of radiation exposure, exceeding doses which would be considered appropriate today, with techniques which are primitive by today's standards. As result, the patient has developed soft tissue radiation injury, and has previously been treated at our wound center in the past with a series of approximately 90 hyperbaric oxygen therapy treatments, in 2011. She presented with recurrence of soft tissue radionecrosis in the right groin. Hyperbaric oxygen therapy treatments were initiated, and the patient has undergone a series of 90 hyperbaric oxygen treatment sessions. She has shown mild benefit from the hyperbaric oxygen treatments. At this time, there is no clinical evidence of infection or cellulitis in the daniel-ulcer area. However, the patient is responding very slowly to the variety of conventional treatment measures which have been implemented. In review of the patient's past history, such has been the case previously, as each treatment course has been rather protracted and lengthy in nature to achieve ultimate healing. The patient was seen and evaluated in consultation at [facility] 2 weeks ago (Dr. Harding), which had been arranged by our facility. We have now received medical records related to the patient's recent visit at [facility]. Judging from the impression at the conclusion of her consultation, no significant new recommendations have been made. Patient has been advised to keep the wound area clean and dry, and to change the Mary dressing daily. She was educated in the appropriate diet. Otherwise, no other significant recommendations were formulated. Her right groin ulceration was cultured, and based upon the culture results she was placed on topical Bactroban, with continuation of Mary. Plan: The patient has been the recipient of 10 EpiFix applications recently. We have transitioned to the use of Mary, applied by the patient every other day. No new recommendations of significance were elucidated recently by the wound care facility at [facility]. The patient will return in 1 week for reassessment. The patient is to continue with a nutritious diet. Biopsies of the ulceration have been obtained, and the results are negative for malignancy. Consideration has to be given to the use of a skin graft substitute, Grafix Prime. Preauthorization will be sought. Influenza vaccine was not administered today. The patient is not a smoker. She stands 5 feet 7 inches tall. She weighs 198 pounds. Her BMI is 31, which places her in a class I weight category. Weight loss has been recommended. She is to collaborate with her primary care physician in this regard.
--- NOTE | 2018-05-29 08:47 | HP.PCM_ITS ---
(1) History of uterine cancer Status: Chronic Current Visit: No Code(s): Z85.42 - Personal history of malignant neoplasm of other parts of uterus (2) History of melanoma Status: Chronic Current Visit: Yes Code(s): Z85.820 - Personal history of malignant melanoma of skin (3) Hyperlipidemia Status: Chronic Current Visit: No Code(s): E78.5 - Hyperlipidemia, unspecified (4) GERD (gastroesophageal reflux disease) Status: Chronic Current Visit: No Code(s): K21.9 - Gastro-esophageal reflux disease without esophagitis (5) Ulcer of right groin Status: Chronic Current Visit: Yes Qualifiers: Non-pressure ulcer stage: with fat layer exposed Code(s): L98.499 - Non-pressure chronic ulcer of skin of other sites with unspecified severity (6) Obesity (BMI 30.0-34.9) Status: Chronic Current Visit: No Code(s): E66.9 - Obesity, unspecified (7) Amputee, above knee Status: Chronic Current Visit: Yes Qualifiers: Laterality: right Code(s): Z89.619 - Acquired absence of unspecified leg above knee (8) Soft tissue radionecrosis Status: Chronic Current Visit: Yes Code(s): L59.8 - Other specified disorders of the skin and subcutaneous tissue related to radiation; Y84.2 - Radiological procedure and radiotherapy as the cause of abnormal reaction of the patient, or of later complication, without mention of misadventure at the time of the procedure (9) soft tissue radiation injury Status: Chronic Current Visit: Yes History of Present Illness Chief Complaint: 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 The patient underwent excision of her melanoma with lymphadenect sharmaine in the right groin. She also underwent lengthy radiation treatments at the [facility] in [place], [place]. Melanoma recurred, and the patient was subsequently treated with monoclonal antibodies in 1984. 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 Treatment included local ulcer care and hyperbaric oxygen therapy. She underwent a total of nearly 90 treatments of hyperbaric oxygen therapy. It is known that she tolerated the therapies well, and derived significant benefit. She relates no history of claustrophobia, or other complications related to the hyperbaric oxygen therapy treatments. She has no history of barotrauma to lungs, ears, etc. Her medical history has been reviewed, without any evidence of contraindications to hyperbaric oxygen therapy. Hyperbaric oxygen therapy has been administered for nearly 90 treatment sessions. We are currently using EpiFix allografts, and she has undergone 8 applications thus far. The patient's history suggests that the right groin wound in the past responded to hyperbaric oxygen therapy, but required 90 such sessions. It appears as though the patient's current clinical course is mimicking that of the past, with wound healing which is very recalcitrant to conventional treatment measures. 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 She is undergone excision of melanoma from the right calf, with lymphadenectomy of the right groin in the 1969's. She subsequently required surgeries of the right thigh related to osteomyelitis, MRSA infection, and radiation injury to the right femoral artery. Ultimately, the patient required right above-knee amputation, performed in 2000. She also has a remote history of open reduction and internal fixation of a right ankle fracture. Allergies/Adverse Reactions: Allergies No Known Allergies Allergy (Verified 06/20/17 09:22) Home Medications: Ambulatory Orders Medication Instructions Recorded Famotidine 20 mg PO 06/20/17 Pravastatin [Pravachol] 20 mg PO DAILY 06/20/17 - Family History Maternal - - The patient's mother is 98 years of age and relatively healthy. The patient's father at age of 79 with a history of cardiomyopathy. Smoking Status: Former smoker Tobacco Use: Non-smoker Review of Systems Constitutional: Denies: Chills, Fever, Weight Change Eyes: Denies: Pain, Vision Change HEENT: Denies: Difficulty Hearing, Difficulty Swallowing, Sinus Congestion Cardiovascular: Denies: Chest Pain, Palpitations Respiratory: Denies: Cough, Shortness of Breath Gastrointestinal: Denies: Diarrhea, Nausea, Vomiting Genitourinary: Denies: Dysuria, Hematuria Endocrine: Denies: Heat/ Cold Intolerance, Polydipsia, Polyuria Hematologic/ Lymphatic: Denies: Easy Bruising, Easy Bleeding - Physical Exam Vital Signs Temp Pulse Resp BP 96 F L 97 16 162/88 H 05/29/18 08:12 05/29/18 08:12 05/29/18 08:12 05/29/18 08:12 General: Alert, Oriented x3, Cooperative, No apparent distress, Well developed, Well nourished HEENT: Atraumatic, PERRLA, EOMI, Normocephalic Oral: Moist Mucosa Neck: No JVD Lungs: Normal air movement Abdomen: Non-Distended Extremities: No clubbing, No cyanosis, No edema, No Calf Tenderness, - - A well- healed right above-knee amputation stump is noted. The ulceration in the right groin is slightly smaller in size. The base of the ulceration is generally pink and healthy in appearance, with a moderate amount of bioburden. There is no sign of infection or cellulitis. Ulcer dimensions are documented elsewhere. Ulcer margins are not well beveled. Skin: No rashes Wound Measurements and Assessment WC - Nurse 1 - General Ulcer Measurement Start: 05/22/18 08:12 Freq: Status: Active Protocol: Activity Type Activity Date Activity User E-Sign Co-Sign Detail Recorded Client Recorded Date Recorded By Document 05/29/18 08:12 [facility] [id number] 05/29/18 08:20 [facility] 05/29/18 08:12 Wound Center Nurse 1 [Ulcer Assessment] #5 R Groin -Combined with other wound No -Current Size (cm) - Length 2.1 -Current Size (cm) - Width 0.8 -Current Size (cm) - Depth 0.4 -Total Square Cm 1.68 -Date of Last Picture (Recall this 05/29/18 field) -Photo Taken Yes -Epithelialization Small 1-33% -Tunneling No -Undermining/Tunneling No -Circular Undermining No -Exudate Amt Small (1-33%) -Exudate Type Serous -Wound Margin Distinct, Outline Attached -Granulation Amt Small (1-33%) -Granulation Quality [place] -Slough/Fibrin Yes -Necrosis Amt Large (67-100%) -Necrotic Tissue Type Adherent Slough -Texture (Blanche-wound Skin Appearance) Scarring -Moisture (Blanche-wound Skin Appearance Dry/Scaly ) -Color (Blanche-wound Skin Appearance) Assessed -Temperature (Blanche-wound Skin No Abnormality Appearance) (Pt Warm) -Tenderness on Palpation (Blanche-wound No Skin Appearance) -Ulcer Cleansing Rinsed/ Irrigated with Saline -Foul Odor after Cleansing No -Anesthetic Used 5% Lidocaine Gel WC - Nurse 2 - General Ulcer CM Notes Start: 05/22/18 08:12 Freq: Status: Active Protocol: Activity Type Activity Date Activity User E-Sign Co-Sign Detail Recorded Client Recorded Date Recorded By Document 05/29/18 08:32 [id number] 05/29/18 08:35 [email or web address] 05/29/18 08:32 Wound Center Nurse 2 [Procedure/Treatment] -Time 08:33 -Correct Patient Yes -Correct Side, Site, Position Yes -Correct Procedure Yes -Procedure Performed Yes -Type of Procedure Debridement -Clinical Debridement Subcutaneous -Post Debridement Size (cm) - Length 2.9 -Post Debridement Size (cm) - Width 1.0 -Post Debridement Size (cm) - Depth 0.4 -Total Square Cm 2.90 -Wound/Ulcer Outcome Not Healed -Ulcer Cleansing Rinsed/ Irrigated with Saline -Foul Odor after Cleansing No -Bioengineered Tissue No -Topical Lidocaine (%) 4 -Lidocaine (ml) 5 -Bleeding Controlled with NA -Treatment Response Procedure Tolerated Well [See Physician Procedure note for Specifics] Pain Scale: 0-10 Numeric [Pain] -Is Patient Pain Free? Yes Musculoskeletal: No Muscle Wasting Neurological: Cranial nerves II-XII grossly intact, Neuro grossly intact Psych/Mental Status: Normal Affect, Appropriate, Alert and oriented to time, place, person, mood and affect Debridement Note Post-Debridement Measurements/Treatment WC - Nurse 2 - General Ulcer CM Notes Start: 05/22/18 08:12 Freq: Status: Active Protocol: Activity Type Activity Date Activity User E-Sign Co-Sign Detail Recorded Client Recorded Date Recorded By Document 05/22/18 08:31 [id number] 05/22/18 08:33 Document 05/29/18 08:32 [id number] 05/29/18 08:35 05/22/18 05/29/18 08:31 08:32 Wound Center Nurse 2 #5 R Groin -Time 08: 08:33 -Correct Patient Yes Yes -Correct Side, Site, Position Yes Yes -Correct Procedure Yes Yes -Procedure Performed Yes Yes -Type of Procedure Debridement Debridement -Clinical Debridement Subcutaneous Subcutaneous -Post Debridement Size (cm) - Length 3.2 2.9 -Post Debridement Size (cm) - Width 1.0 1.0 -Post Debridement Size (cm) - Depth 0.4 0.4 -Total Square Cm 3.20 2.90 -Wound/Ulcer Outcome Not Healed Not Healed -Ulcer Cleansing Rinsed/ Rinsed/ Irrigated with Irrigated with Saline Saline -Foul Odor after Cleansing No No -Bioengineered Tissue No No -Topical Lidocaine (%) 4 4 -Lidocaine (ml) 5 5 -Bleeding Controlled with NA NA -Treatment Response Procedure Procedure Tolerated Well Tolerated Well Pain Scale: 0-10 Numeric Is Patient Pain Free? 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 In the 1970's, she was diagnosed with malignant melanoma of the right calf, with metastasis to lymph nodes in the right groin. She underwent excision of the melanoma with right groin lymphadenectomy. She was subsequently treated with a long series of radiation treatments to the right groin. During the days of her radiation treatment, it is suspected that the radiation techniques were somewhat early in their evolution, and quite likely that the patient received massive doses of radiation exposure, exceeding doses which would be considered appropriate today, with techniques which are primitive by today's standards. As result, the patient has developed soft tissue radiation injury, and has previously been treated at our wound center in the past with a series of approximately 90 hyperbaric oxygen therapy treatments, in 2011. She presented with recurrence of soft tissue radionecrosis in the right groin. Hyperbaric oxygen therapy treatments were initiated, and the patient has undergone a series of 90 hyperbaric oxygen treatment sessions. She has shown mild benefit from the hyperbaric oxygen treatments. At this time, there is no clinical evidence of infection or cellulitis in the blanche-ulcer area. However, the patient is responding very slowly to the variety of conventional treatment measures which have been implemented. In review of the patient's past history, such has been the case previously, as each treatment course has been rather protracted and lengthy in nature to achieve ultimate healing. The patient was seen and evaluated in consultation at [facility] 2 weeks ago (Dr. Harding), which had been arranged by our facility. We have now received medical records related to the patient's recent visit at [facility]. Judging from the impression at the conclusion of her consultation, no significant new recommendations have been made. Patient has been advised to keep the wound area clean and dry, and to change the Mary dressing daily. She was educated in the appropriate diet. Otherwise, no other significant recommendations were formulated. Her right groin ulceration was cultured, and based upon the culture results she was placed on topical Bactroban, with continuation of Mary. Plan: The patient has been the recipient of 10 EpiFix applications recently. We have transitioned to the use of Mary, applied by the patient every other day. No new recommendations of significance were elucidated recently by the wound care facility at [facility]. The patient will return in 1 week for reassessment. The patient is to continue with a nutritious diet. Biopsies of the ulceration have been obtained, and the results are negative for malignancy. Consideration has to be given to the use of a skin graft substitute, Grafix Prime. Preauthorization will be sought. Influenza vaccine was not administered today. The patient is not a smoker. She stands 5 feet 7 inches tall. She weighs 198 pounds. Her BMI is 31, which places her in a class I weight category. Weight loss has been recommended. She is to collaborate with her primary care physician in this regard.
[2018-06-05 08:30] VITALS: BP 146/87; PULSE 84; RESP 16; TEMP 36.2; BMI 68.3
--- NOTE | 2018-06-05 09:21 | PCM.WC.HP ---
(1) History of uterine cancer Status: Chronic Current Visit: No Code(s): Z85.42 - Personal history of malignant neoplasm of other parts of uterus (2) History of melanoma Status: Chronic Current Visit: Yes Code(s): Z85.820 - Personal history of malignant melanoma of skin (3) Hyperlipidemia Status: Chronic Current Visit: No Code(s): E78.5 - Hyperlipidemia, unspecified (4) GERD (gastroesophageal reflux disease) Status: Chronic Current Visit: No Code(s): K21.9 - Gastro-esophageal reflux disease without esophagitis (5) Ulcer of right groin Status: Chronic Current Visit: Yes Qualifiers: Non-pressure ulcer stage: with fat layer exposed Code(s): L98.499 - Non-pressure chronic ulcer of skin of other sites with unspecified severity (6) Obesity (BMI 30.0-34.9) Status: Chronic Current Visit: No Code(s): E66.9 - Obesity, unspecified (7) Amputee, above knee Status: Chronic Current Visit: Yes Qualifiers: Laterality: right Code(s): Z89.619 - Acquired absence of unspecified leg above knee (8) Soft tissue radionecrosis Status: Chronic Current Visit: Yes Code(s): L59.8 - Other specified disorders of the skin and subcutaneous tissue related to radiation; Y84.2 - Radiological procedure and radiotherapy as the cause of abnormal reaction of the patient, or of later complication, without mention of misadventure at the time of the procedure (9) soft tissue radiation injury Status: Chronic Current Visit: Yes History of Present Illness Chief Complaint: 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 The patient underwent excision of her melanoma with lymphadenectomy in the right groin. She also underwent lengthy radiation treatments at the [facility] in [place], [place]. Melanoma recurred, and the patient was subsequently treated with monoclonal antibodies in 1984. 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 In 2012, the patient was treated in our wound center for ulcerations of the right upper thigh and groin related to soft tissue radiation necrosis. Treatment included local ulcer care and hyperbaric oxygen therapy. She underwent a total of nearly 90 treatments of hyperbaric oxygen therapy. It is known that she tolerated the therapies well, and derived significant benefit. She relates no history of claustrophobia, or other complications related to the hyperbaric oxygen therapy treatments. She has no history of barotrauma to lungs, ears, etc. Her medical history has been reviewed, without any evidence of contraindications to hyperbaric oxygen therapy. Hyperbaric oxygen therapy has been administered for nearly 90 treatment sessions. We are currently using EpiFix allografts, and she has undergone 8 applications thus far. The patient's history suggests that the right groin wound in the past responded to hyperbaric oxygen therapy, but required 90 such sessions. It appears as though the patient's current clinical course is mimicking that of the past, with wound healing which is very recalcitrant to conventional treatment measures. 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 She is undergone excision of melanoma from the right calf, with lymphadenectomy of the right groin in the 1969's. She subsequently required surgeries of the right thigh related to osteomyelitis, MRSA infection, and radiation injury to the right femoral artery. Ultimately, the patient required right above-knee amputation, performed in 2000. She also has a remote history of open reduction and internal fixation of a right ankle fracture. Allergies/Adverse Reactions: Allergies No Known Allergies Allergy (Verified 06/20/17 09:22) Home Medications: Ambulatory Orders Medication Instructions Recorded Famotidine 20 mg PO 06/20/17 Pravastatin [Pravachol] 20 mg PO DAILY 06/20/17 - Family History Maternal - - The patient's mother is 98 years of age and relatively healthy. The patient's father at age of 79 with a history of cardiomyopathy. Smoking Status: Former smoker Tobacco Use: Non-smoker Review of Systems Constitutional: Denies: Chills, Fever, Weight Change Eyes: Denies: Pain, Vision Change HEENT: Denies: Difficulty Hearing, Difficulty Swallowing, Sinus Congestion Cardiovascular: Denies: Chest Pain, Palpitations Respiratory: Denies: Cough, Shortness of Breath Gastrointestinal: Denies: Diarrhea, Nausea, Vomiting Genitourinary: Denies: Dysuria, Hematuria Endocrine: Denies: Heat/ Cold Intolerance, Polydipsia, Polyuria Hematologic/ Lymphatic: Denies: Easy Bruising, Easy Bleeding - Physical Exam Vital Signs Temp Pulse Resp BP 97.1 F L 84 16 146/87 H 06/05/18 08:30 06/05/18 08:30 06/05/18 08:30 06/05/18 08:30 General: Alert, Oriented x3, Cooperative, No apparent distress, Well developed, Well nourished HEENT: Atraumatic, PERRLA, EOMI, Normocephalic Oral: Moist Mucosa Neck: No JVD Lungs: Normal air movement Abdomen: Non-Distended Extremities: No clubbing, No cyanosis, No edema, No Calf Tenderness, - - A well-healed right above-knee amputation stump is noted. The ulceration in the right groin persists, with little change in size. Dimensions are documented elsewhere. There is an increasing amount of fibrous material in the base of the ulceration. The inferior portion of the ulceration looks relatively good, with well beveled margins and evidence of pink healthy granulation tissue. There is no obvious sign of infection or cellulitis. Nonetheless, given the recalcitrant nature of the ulceration in terms of healing, aerobic and anaerobic swab cultures were obtained today. Skin: No rashes Wound Measurements and Assessment WC - Nurse 1 - General Ulcer Measurement Start: 05/22/18 08:12 Freq: Status: Active Protocol: Activity Type Activity Date Activity User E-Sign Co-Sign Detail Recorded Client Recorded Date Recorded By Document 06/05/18 08:30 DV [id number] 06/05/18 08:33 DV 06/05/18 08:30 Wound Center Nurse 1 [Ulcer Assessment] #5 R Groin -Combined with other wound No -Current Size (cm) - Length 3.0 -Current Size (cm) - Width 1.0 -Current Size (cm) - Depth 0.2 -Total Square Cm 3.00 -Photo Taken No -Epithelialization None Present -Tunneling No -Undermining/Tunneling No -Circular Undermining No -Classification - Thickness Full Thickness without Exposed Support Structure -Exudate Amt Medium (34-66%) -Exudate Type Yellow/Green -Wound Margin Thickened -Granulation Amt None Present (0 %) -Necrosis Amt Medium (34-66%) -Necrotic Tissue Type Adherent Slough -Structure Exposed None/Limited to Skin Breakdown -Texture (Daniel-wound Skin Appearance) Assessed Scarring -Moisture (Daniel-wound Skin Appearance Assessed ) Weeping -Color (Daniel-wound Skin Appearance) No Abnormality Assessed -Temperature (Daniel-wound Skin No Abnormality Appearance) (Pt Warm) -Tenderness on Palpation (Daniel-wound No Skin Appearance) -Ulcer Cleansing Rinsed/ Irrigated with Saline -Foul Odor after Cleansing No -Anesthetic Used 5% Lidocaine Gel WC - Nurse 2 - General Ulcer CM Notes Start: 05/22/18 08:12 Freq: Status: Active Protocol: Activity Type Activity Date Activity User E-Sign Co-Sign Detail Recorded Client Recorded Date Recorded By Document 06/05/18 08:50 [id number] 06/05/18 09:11 [email or web address] 06/05/18 08:50 Wound Center Nurse 2 [Procedure/Treatment] -Time 08:51 -Correct Patient Yes -Correct Side, Site, Position Yes -Correct Procedure Yes -Procedure Performed Yes -Type of Procedure Debridement -Clinical Debridement Subcutaneous -Post Debridement Size (cm) - Length 3.0 -Post Debridement Size (cm) - Width 1.0 -Post Debridement Size (cm) - Depth 0.5 -Total Square Cm 3.00 -Wound/Ulcer Outcome Not Healed -Ulcer Cleansing Rinsed/ Irrigated with Saline -Foul Odor after Cleansing No -Bioengineered Tissue No -Topical Lidocaine (%) 4 -Lidocaine (ml) 5 -Bleeding Controlled with NA -Treatment Response Procedure Tolerated Well [See Physician Procedure note for Specifics] Pain Scale: 0-10 Numeric [Pain] -Is Patient Pain Free? Yes Musculoskeletal: No Muscle Wasting Neurological: Cranial nerves II-XII grossly intact, Neuro grossly intact Psych/Mental Status: Normal Affect, Appropriate, Alert and oriented to time, place, person, mood and affect Debridement Note Post-Debridement Measurements/Treatment WC - Nurse 2 - General Ulcer CM Notes Start: 05/22/18 08:12 Freq: Status: Active Protocol: Activity Type Activity Date Activity User E-Sign Co-Sign Detail Recorded Client Recorded Date Recorded By Document 05/22/18 08:31 [id number] 05/22/18 08:33 JS Document 05/29/18 08:32 [id number] 05/29/18 08:35 JS Document 06/05/18 08:50 [id number] 06/05/18 09:11 05/22/18 05/29/18 06/05/18 08:31 08:32 08:50 Wound Center Nurse 2 #5 R Groin -Time 08:31 08:33 08:51 -Correct Patient Yes Yes Yes -Correct Side, Site, Position Yes Yes Yes -Correct Procedure Yes Yes Yes -Procedure Performed Yes Yes Yes -Type of Procedure Debridement Debridement Debridement -Clinical Debridement Subcutaneous Subcutaneous Subcutaneous -Post Debridement Size (cm) - Length 3.2 2.9 3.0 -Post Debridement Size (cm) - Width 1.0 1.0 1.0 -Post Debridement Size (cm) - Depth 0.4 0.4 0.5 -Total Square Cm 3.20 2.90 3.00 -Wound/Ulcer Outcome Not Healed Not Healed Not Healed -Ulcer Cleansing Rinsed/ Rinsed/ Rinsed/ Irrigated with Irrigated with Irrigated with Saline Saline Saline -Foul Odor after Cleansing No No No -Bioengineered Tissue No No No -Topical Lidocaine (%) 4 4 4 -Lidocaine (ml) 5 5 5 -Bleeding Controlled with NA NA NA -Treatment Response Procedure Procedure Procedure Tolerated Well Tolerated Well Tolerated Well Pain Scale: 0-10 Numeric Is Patient Pain Free? 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 In the s, she was diagnosed with malignant melanoma of the right calf, with metastasis to lymph nodes in the right groin. She underwent excision of the melanoma with right groin lymphadenectomy. She was subsequently treated with a long series of radiation treatments to the right groin. During the days of her radiation treatment, it is suspected that the radiation techniques were somewhat early in their evolution, and quite likely that the patient received massive doses of radiation exposure, exceeding doses which would be considered appropriate today, with techniques which are primitive by today's standards. As result, the patient has developed soft tissue radiation injury, and has previously been treated at our wound center in the past with a series of approximately 90 hyperbaric oxygen therapy treatments, in 2011. She presented with recurrence of soft tissue radionecrosis in the right groin. Hyperbaric oxygen therapy treatments were initiated, and the patient has undergone a series of 90 hyperbaric oxygen treatment sessions. She has shown mild benefit from the hyperbaric oxygen treatments. At this time, there is no clinical evidence of infection or cellulitis in the daniel-ulcer area. However, the patient is responding very slowly to the variety of conventional treatment measures which have been implemented. In review of the patient's past history, such has been the case previously, as each treatment course has been rather protracted and lengthy in nature to achieve ultimate healing. The patient was seen and evaluated in consultation at [facility] recently (Dr. Harding), which had been arranged by our facility. We have now received medical records related to the patient's recent visit at [facility]. Judging from the impression at the conclusion of her consultation, no significant new recommendations have been made. Patient has been advised to keep the wound area clean and dry, and to change the Mary dressing daily. She was educated in the appropriate diet. Her right groin ulceration was cultured, and based upon the culture results she was placed on topical Bactroban, with continuation of Mary. Plan: The patient has been the recipient of 10 EpiFix applications. We have transitioned to the use of Mary, applied by the patient every other day. No new recommendations of significance were elucidated recently by the wound care facility at [facility]. The patient will return in 1 week for reassessment. The patient is to continue with a nutritious diet. Biopsies of the ulceration have been obtained, and the results are negative for malignancy. Consideration has to be given to the use of a skin graft substitute, Grafix Core. Preauthorization will be sought. Influenza vaccine was not administered today. The patient is not a smoker. She stands 5 feet 7 inches tall. She weighs 198 pounds. Her BMI is 31, which places her in a class I weight category. Weight loss has been recommended. She is to collaborate with her primary care physician in this regard.
--- NOTE | 2018-06-05 09:25 | HP.PCM_ITS ---
(1) History of uterine cancer Status: Chronic Current Visit: No Code(s): Z85.42 - Personal history of malignant neoplasm of other parts of uterus (2) History of melanoma Status: Chronic Current Visit: Yes Code(s): Z85.820 - Personal history of malignant melanoma of skin (3) Hyperlipidemia Status: Chronic Current Visit: No Code(s): E78.5 - Hyperlipidemia, unspecified (4) GERD (gastroesophageal reflux disease) Status: Chronic Current Visit: No Code(s): K21.9 - Gastro-esophageal reflux disease without esophagitis (5) Ulcer of right groin Status: Chronic Current Visit: Yes Qualifiers: Non-pressure ulcer stage: with fat layer exposed Code(s): L98.499 - Non-pressure chronic ulcer of skin of other sites with unspecified severity (6) Obesity (BMI 30.0-34.9) Status: Chronic Current Visit: No Code(s): E66.9 - Obesity, unspecified (7) Amputee, above knee Status: Chronic Current Visit: Yes Qualifiers: Laterality: right Code(s): Z89.619 - Acquired absence of unspecified leg above knee (8) Soft tissue radionecrosis Status: Chronic Current Visit: Yes Code(s): L59.8 - Other specified disorders of the skin and subcutaneous tissue related to radiation; Y84.2 - Radiological procedure and radiotherapy as the cause of abnormal reaction of the patient, or of later complication, without mention of misadventure at the time of the procedure (9) soft tissue radiation injury Status: Chronic Current Visit: Yes History of Present Illness Chief Complaint: 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 The patient underwent excision of her melanoma with lymphadenect sharmaine in the right groin. She also underwent lengthy radiation treatments at the [facility] in [place], [place]. Melanoma recurred, and the patient was subsequently treated with monoclonal antibodies in 1984. 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 Treatment included local ulcer care and hyperbaric oxygen therapy. She underwent a total of nearly 90 treatments of hyperbaric oxygen therapy. It is known that she tolerated the therapies well, and derived significant benefit. She relates no history of claustrophobia, or other complications related to the hyperbaric oxygen therapy treatments. She has no history of barotrauma to lungs, ears, etc. Her medical history has been reviewed, without any evidence of contraindications to hyperbaric oxygen therapy. Hyperbaric oxygen therapy has been administered for nearly 90 treatment sessions. We are currently using EpiFix allografts, and she has undergone 8 applications thus far. The patient's history suggests that the right groin wound in the past responded to hyperbaric oxygen therapy, but required 90 such sessions. It appears as though the patient's current clinical course is mimicking that of the past, with wound healing which is very recalcitrant to conventional treatment measures. 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 She is undergone excision of melanoma from the right calf, with lymphadenectomy of the right groin in the 1969's. She subsequently required surgeries of the right thigh related to osteomyelitis, MRSA infection, and radiation injury to the right femoral artery. Ultimately, the patient required right above-knee amputation, performed in 2000. She also has a remote history of open reduction and internal fixation of a right ankle fracture. Allergies/Adverse Reactions: Allergies No Known Allergies Allergy (Verified 06/20/17 09:22) Home Medications: Ambulatory Orders Medication Instructions Recorded Famotidine 20 mg PO 06/20/17 Pravastatin [Pravachol] 20 mg PO DAILY 06/20/17 - Family History Maternal - - The patient's mother is 98 years of age and relatively healthy. The patient's father at age of 79 with a history of cardiomyopathy. Smoking Status: Former smoker Tobacco Use: Non-smoker Review of Systems Constitutional: Denies: Chills, Fever, Weight Change Eyes: Denies: Pain, Vision Change HEENT: Denies: Difficulty Hearing, Difficulty Swallowing, Sinus Congestion Cardiovascular: Denies: Chest Pain, Palpitations Respiratory: Denies: Cough, Shortness of Breath Gastrointestinal: Denies: Diarrhea, Nausea, Vomiting Genitourinary: Denies: Dysuria, Hematuria Endocrine: Denies: Heat/ Cold Intolerance, Polydipsia, Polyuria Hematologic/ Lymphatic: Denies: Easy Bruising, Easy Bleeding - Physical Exam Vital Signs Temp Pulse Resp BP 97.1 F L 84 16 146/87 H 06/05/18 08:30 06/05/18 08:30 06/05/18 08:30 06/05/18 08:30 General: Alert, Oriented x3, Cooperative, No apparent distress, Well developed, Well nourished HEENT: Atraumatic, PERRLA, EOMI, Normocephalic Oral: Moist Mucosa Neck: No JVD Lungs: Normal air movement Abdomen: Non-Distended Extremities: No clubbing, No cyanosis, No edema, No Calf Tenderness, - - A well- healed right above-knee amputation stump is noted. The ulceration in the right groin persists, with little change in size. Dimensions are documented elsewhere. There is an increasing amount of fibrous material in the base of the ulceration. The inferior portion of the ulceration looks relatively good, with well beveled margins and evidence of pink healthy granulation tissue. There is no obvious sign of infection or cellulitis. Nonetheless, given the recalcitrant nature of the ulceration in terms of healing, aerobic and anaerobic swab cultures were obtained today. Skin: No rashes Wound Measurements and Assessment WC - Nurse 1 - General Ulcer Measurement Start: 05/22/18 08:12 Freq: Status: Active Protocol: Activity Type Activity Date Activity User E-Sign Co-Sign Detail Recorded Client Recorded Date Recorded By Document 06/05/18 08:30 DV [id number] 06/05/18 08:33 DV 06/05/18 08:30 Wound Center Nurse 1 [Ulcer Assessment] #5 R Groin -Combined with other wound No -Current Size (cm) - Length 3.0 -Current Size (cm) - Width 1.0 -Current Size (cm) - Depth 0.2 -Total Square Cm 3.00 -Photo Taken No -Epithelialization None Present -Tunneling No -Undermining/Tunneling No -Circular Undermining No -Classification - Thickness Full Thickness without Exposed Support Structure -Exudate Amt Medium (34-66%) -Exudate Type Yellow/Green -Wound Margin Thickened -Granulation Amt None Present (0 %) -Necrosis Amt Medium (34-66%) -Necrotic Tissue Type Adherent Slough -Structure Exposed None/Limited to Skin Breakdown -Texture (Blanche-wound Skin Appearance) Assessed Scarring -Moisture (Blanche-wound Skin Appearance Assessed ) Weeping -Color (Blanche-wound Skin Appearance) No Abnormality Assessed -Temperature (Blanche-wound Skin No Abnormality Appearance) (Pt Warm) -Tenderness on Palpation (Blanche-wound No Skin Appearance) -Ulcer Cleansing Rinsed/ Irrigated with Saline -Foul Odor after Cleansing No -Anesthetic Used 5% Lidocaine Gel WC - Nurse 2 - General Ulcer CM Notes Start: 05/22/18 08:12 Freq: Status: Active Protocol: Activity Type Activity Date Activity User E-Sign Co-Sign Detail Recorded Client Recorded Date Recorded By Document 06/05/18 08:50 [email or web address] [id number] 06/05/18 09:11 KEILA 06/05/18 08:50 Wound Center Nurse 2 [Procedure/Treatment] -Time 08:51 -Correct Patient Yes -Correct Side, Site, Position Yes -Correct Procedure Yes -Procedure Performed Yes -Type of Procedure Debridement -Clinical Debridement Subcutaneous -Post Debridement Size (cm) - Length 3.0 -Post Debridement Size (cm) - Width 1.0 -Post Debridement Size (cm) - Depth 0.5 -Total Square Cm 3.00 -Wound/Ulcer Outcome Not Healed -Ulcer Cleansing Rinsed/ Irrigated with Saline -Foul Odor after Cleansing No -Bioengineered Tissue No -Topical Lidocaine (%) 4 -Lidocaine (ml) 5 -Bleeding Controlled with NA -Treatment Response Procedure Tolerated Well [See Physician Procedure note for Specifics] Pain Scale: 0-10 Numeric [Pain] -Is Patient Pain Free? Yes Musculoskeletal: No Muscle Wasting Neurological: Cranial nerves II-XII grossly intact, Neuro grossly intact Psych/Mental Status: Normal Affect, Appropriate, Alert and oriented to time, place, person, mood and affect Debridement Note Post-Debridement Measurements/Treatment WC - Nurse 2 - General Ulcer CM Notes Start: 11/13/18 08:12 Freq: Status: Active Protocol: Activity Type Activity Date Activity User E-Sign Co-Sign Detail Recorded Client Recorded Date Recorded By Document 05/22/18 08:31 [id number] 05/22/18 08:33 Document 05/29/18 08:32 [id number] 05/29/18 08:35 JS Document 06/05/18 08:50 [id number] 06/05/18 09:11 05/22/18 05/29/18 06/05/18 08:31 08:32 08:50 Wound Center Nurse 2 #5 R Groin -Time 08:31 08:33 08:51 -Correct Patient Yes Yes Yes -Correct Side, Site, Position Yes Yes Yes -Correct Procedure Yes Yes Yes -Procedure Performed Yes Yes Yes -Type of Procedure Debridement Debridement Debridement -Clinical Debridement Subcutaneous Subcutaneous Subcutaneous -Post Debridement Size (cm) - Length 3.2 2.9 3.0 -Post Debridement Size (cm) - Width 1.0 1.0 1.0 -Post Debridement Size (cm) - Depth 0.4 0.4 0.5 -Total Square Cm 3.20 2.90 3.00 -Wound/Ulcer Outcome Not Healed Not Healed Not Healed -Ulcer Cleansing Rinsed/ Rinsed/ Rinsed/ Irrigated with Irrigated with Irrigated with Saline Saline Saline -Foul Odor after Cleansing No No No -Bioengineered Tissue No No No -Topical Lidocaine (%) 4 4 4 -Lidocaine (ml) 5 5 5 -Bleeding Controlled with NA NA NA -Treatment Response Procedure Procedure Procedure Tolerated Well Tolerated Well Tolerated Well Pain Scale: 0-10 Numeric Is Patient Pain Free? 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 In the s, she was diagnosed with malignant melanoma of the right calf, with metastasis to lymph nodes in the right groin. She underwent excision of the melanoma with right groin lymphadenectomy. She was subsequently treated with a long series of radiation treatments to the right groin. During the days of her radiation treatment, it is suspected that the radiation techniques were somewhat early in their evolution, and quite likely that the patient received massive doses of radiation exposure, exceeding doses which would be considered appropriate today, with techniques which are primitive by today's standards. As result, the patient has developed soft tissue radiation injury, and has previously been treated at our wound center in the past with a series of approximately 90 hyperbaric oxygen therapy treatments, in 2011. She presented with recurrence of soft tissue radionecrosis in the right groin. Hyperbaric oxygen therapy treatments were initiated, and the patient has undergone a series of 90 hyperbaric oxygen treatment sessions. She has shown mild benefit from the hyperbaric oxygen treatments. At this time, there is no clinical evidence of infection or cellulitis in the blanche-ulcer area. However, the patient is responding very slowly to the variety of conventional treatment measures which have been implemented. In review of the patient's past history, such has been the case previously, as each treatment course has been rather protracted and lengthy in nature to achieve ultimate healing. The patient was seen and evaluated in consultation at [facility] recently (Dr. Harding), which had been arranged by our facility. We have now received medical records related to the patient's recent visit at [facility]. Judging from the impression at the conclusion of her consultation, no sig nificant new recommendations have been made. Patient has been advised to keep the wound area clean and dry, and to change the Mary dressing daily. She was educated in the appropriate diet. Her right groin ulceration was cultured, and based upon the culture results she was placed on topical Bactroban, with continuation of Mary. Plan: The patient has been the recipient of 10 EpiFix applications. We have transitioned to the use of Mary, applied by the patient every other day. No new recommendations of significance were elucidated recently by the wound care facility at [facility]. The patient will return in 1 week for reassessment. The patient is to continue with a nutritious diet. Biopsies of the ulceration have been obtained, and the results are negative for malignancy. Consideration has to be given to the use of a skin graft substitute, Grafix Core. Preauthorization will be sought. Influenza vaccine was not administered today. The patient is not a smoker. She stands 5 feet 7 inches tall. She weighs 198 pounds. Her BMI is 31, which places her in a class I weight category. Weight loss has been recommended. She is to collaborate with her primary care physician in this regard.
== END 2018-06-08 23:59 ==
LOC: WC 08:00
PROVIDERS: Family Provider Family Medicine; PCP Family Medicine; Referring Provider Surgery; Visit Provider Surgery
DX: L59.8 Other specified disorders of the skin and subcutaneous tissue related to radiation (principal); Y84.2 Radiological procedure and radiotherapy as the cause of abnormal reaction of the patient, or of later complication, without mention of misadventure at the time of the procedure; E66.9 Obesity, unspecified; Z71.3 Dietary counseling and surveillance; K21.9 Gastro-esophageal reflux disease without esophagitis; E78.5 Hyperlipidemia, unspecified; Z85.820 Personal history of malignant melanoma of skin; Z85.42 Personal history of malignant neoplasm of other parts of uterus; L98.492 Non-pressure chronic ulcer of skin of other sites with fat layer exposed; Z86.14 Personal history of Methicillin resistant Staphylococcus aureus infection; Z87.891 Personal history of nicotine dependence; Z89.611 Acquired absence of right leg above knee; Z68.31 Body mass index [BMI] 31.0-31.9, adult
CPT/HCPCS: 11042; 87070; 87075; 87077; 87186; 87205

== ENCOUNTER 2018-07-09 14:30 | Outpatient (RCR) | payer OTHER, SELFPAY ==
[2018-06-09 00:47] VITALS: BP 146/87; PULSE 84; RESP 16; TEMP 36.2
[2018-06-12 08:18] VITALS: BP 138/78; PULSE 85; RESP 18; TEMP 36.2; BMI 68.3
--- NOTE | 2018-06-12 09:12 | HP.PCM_ITS ---
(1) History of uterine cancer Status: Chronic Current Visit: No Code(s): Z85.42 - Personal history of malignant neoplasm of other parts of uterus (2) History of melanoma Status: Chronic Current Visit: Yes Code(s): Z85.820 - Personal history of malignant melanoma of skin (3) Hyperlipidemia Status: Chronic Current Visit: No Code(s): E78.5 - Hyperlipidemia, unspecified (4) GERD (gastroesophageal reflux disease) Status: Chronic Current Visit: No Code(s): K21.9 - Gastro-esophageal reflux disease without esophagitis (5) Ulcer of right groin Status: Chronic Current Visit: Yes Qualifiers: Non-pressure ulcer stage: with fat layer exposed Code(s): L98.499 - Non-pressure chronic ulcer of skin of other sites with unspecified severity (6) Obesity (BMI 30.0-34.9) Status: Chronic Current Visit: No Code(s): E66.9 - Obesity, unspecified (7) Amputee, above knee Status: Chronic Current Visit: No Qualifiers: Code(s): Z89.619 - Acquired absence of unspecified leg above knee (8) Soft tissue radionecrosis Status: Chronic Current Visit: Yes Code(s): L59.8 - Other specified disorders of the skin and subcutaneous tissue related to radiation; Y84.2 - Radiological procedure and radiotherapy as the cause of abnormal reaction of the patient, or of later complication, without mention of misadventure at the time of the procedure (9) soft tissue radiation injury Status: Chronic Current Visit: Yes History of Present Illness Chief Complaint: 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 The patient underwent excision of her melanoma with lymphadenectomy in the right groin. She also underwent lengthy radiation treatments at the [facility] in [place], [place]. Melanoma recurred, and the patient was subsequently treated with monoclonal antibodies in 1984. 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 Treatment included local ulcer care and hyperbaric oxygen therapy. She underwent a total of nearly 90 treatments of hyperbaric oxygen therapy. It is known that she tolerated the therapies well, and derived significant benefit. She relates no history of claustrophobia, or other complications related to the hyperbaric oxygen therapy treatments. She has no history of barotrauma to lungs, ears, etc. Her medical history has been reviewed, without any evidence of contraindications to hyperbaric oxygen therapy. Hyperbaric oxygen therapy has been administered for nearly 90 treatment sessions. We are currently using EpiFix allografts, and she has undergone 8 applications thus far. The patient's history suggests that the right groin wound in the past responded to hyperbaric oxygen therapy, but required 90 such sessions. It appears as though the patient's current clinical course is mimicking that of the past, with wound healing which is very recalcitrant to conventional treatment measures. 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 She is undergone excision of melanoma from the right calf, with lymphadenectomy of the right groin in the 1969's. She subsequently required surgeries of the right thigh related to osteomyelitis, MRSA infection, and radiation injury to the right femoral artery. Ultimately, the patient required right above-knee amp utation, performed in 2000. She also has a remote history of open reduction and internal fixation of a right ankle fracture. Allergies/Adverse Reactions: Allergies No Known Allergies Allergy (Verified 06/20/17 09:22) Home Medications: Ambulatory Orders Medication Instructions Recorded Famotidine 20 mg PO 06/20/17 Pravastatin [Pravachol] 20 mg PO DAILY 06/20/17 - Family History Maternal - - The patient's mother is 98 years of age and relatively healthy. The patient's father at age of 79 with a history of cardiomyopathy. Smoking Status: Former smoker Tobacco Use: Non-smoker Review of Systems Constitutional: Denies: Chills, Fever, Weight Change Eyes: Denies: Pain, Vision Change HEENT: Denies: Difficulty Hearing, Difficulty Swallowing, Sinus Congestion Cardiovascular: Denies: Chest Pain, Palpitations Respiratory: Denies: Cough, Shortness of Breath Gastrointestinal: Denies: Diarrhea, Nausea, Vomiting Genitourinary: Denies: Dysuria, Hematuria Endocrine: Denies: Heat/ Cold Intolerance, Polydipsia, Polyuria Hematologic/ Lymphatic: Denies: Easy Bruising, Easy Bleeding - Physical Exam Vital Signs Temp Pulse Resp BP 97.1 F L 85 18 138/78 H 06/12/18 08:18 1218 08:18 12 08:18 06/12/18 08:18 General: Alert, Oriented x3, Cooperative, No apparent distress, Well developed, Well nourished HEENT: Atraumatic, PERRLA, EOMI, Normocephalic Oral: Moist Mucosa Neck: No JVD Lungs: Normal air movement Abdomen: Non-Distended Extremities: No clubbing, No cyanosis, No edema, No Calf Tenderness, - - A right above-knee amputation stump is noted, well-healed. The ulceration in the right groin persists, though with some apparent improvement. The inferior pole of the ulceration appears to be epithelializing. The more superior portion appears to be diminishing in size. Dimensions are documented elsewhere. There is no sign of infection or cellulitis. There is evidence of active granulation tissue. There is a moderate amount of bioburden. Skin: No rashes Wound Measurements and Assessment WC - Nurse 1 - General Ulcer Measurement Start: 06/12/18 08:18 Freq: Status: Active Protocol: Activity Type Activity Date Activity User E-Sign Co-Sign Detail Recorded Client Recorded Date Recorded By Document 06/12/18 08:18 [id number] 06/12/18 08:20 TM 06/12/18 08:18 Wound Center Nurse 1 [Ulcer Assessment] #5 R Groin -Combined with other wound No -Current Size (cm) - Length 3.0 -Current Size (cm) - Width 0.8 -Current Size (cm) - Depth 0.5 -Total Square Cm 2.40 -Photo Taken No -Epithelialization None Present -Tunneling No -Undermining/Tunneling No -Circular Undermining No -Classification - Thickness Full Thickness without Exposed Support Structure -Exudate Amt Medium (34-66%) -Exudate Type Serous -Wound Margin Fibrotic Scar, Thickened Scar -Granulation Amt Small (1-33%) -Granulation Quality [place] -Slough/Fibrin Yes -Necrosis Amt Medium (34-66%) -Necrotic Tissue Type Adherent Slough -Structure Exposed Fascia Fat Layer Exposed -Texture (Daniel-wound Skin Appearance) Assessed Friable Scarring -Moisture (Daniel-wound Skin Appearance Assessed ) Maceration -Color (Daniel-wound Skin Appearance) No Abnormality Assessed -Temperature (Daniel-wound Skin No Abnormality Appearance) (Pt Warm) -Tenderness on Palpation (Daniel-wound No Skin Appearance) -Ulcer Cleansing Rinsed/ Irrigated with Saline -Foul Odor after Cleansing No -Anesthetic Used 5% Lidocaine Gel [Edema Assessment] -Lower Limb Edema Present No WC - Nurse 2 - General Ulcer CM Notes Start: 06/12/18 08:18 Freq: Status: Active Protocol: Activity Type Activity Date Activity User E-Sign Co-Sign Detail Recorded Client Recorded Date Recorded By Document 06/12/18 08:58 DV [id number] 06/12/18 09:03 DV 06/12/18 08:58 Wound Center Nurse 2 [Procedure/Treatment] #5 R Groin -Time 08:59 -Correct Patient Yes -Correct Side, Site, Position Yes -Correct Procedure Yes -Procedure Performed Yes -Type of Procedure Debridement -Clinical Debridement Subcutaneous -Post Debridement Size (cm) - Length 3.0 -Post Debridement Size (cm) - Width 0.8 -Post Debridement Size (cm) - Depth 0.5 -Total Square Cm 2.40 -Wound/Ulcer Outcome Not Healed -Ulcer Cleansing Rinsed/ Irrigated with Saline -Foul Odor after Cleansing No -Bioengineered Tissue No -Bleeding Controlled with Pressure -Offloading No [See Physician Procedure note for Specifics] Pain Scale: 0-10 Numeric [Pain] -Is Patient Pain Free? Yes Musculoskeletal: No Muscle Wasting Neurological: Cranial nerves II-XII grossly intact, Neuro grossly intact Psych/Mental Status: Normal Affect, Appropriate, Alert and oriented to time, place, person, mood and affect Debridement Note Post-Debridement Measurements/Treatment WC - Nurse 2 - General Ulcer CM Notes Start: 06/12/18 08:18 Freq: Status: Active Protocol: Activity Type Activity Date Activity User E-Sign Co-Sign Detail Recorded Client Recorded Date Recorded By Document 06/12/18 08:58 DV [id number] 06/12/18 09:03 DV 06/12/18 08:58 Wound Center Nurse 2 #5 R Groin -Time 08:59 -Correct Patient Yes -Correct Side, Site, Position Yes -Correct Procedure Yes -Procedure Performed Yes -Type of Procedure Debridement -Clinical Debridement Subcutaneous -Post Debridement Size (cm) - Length 3.0 -Post Debridement Size (cm) - Width 0.8 -Post Debridement Size (cm) - Depth 0.5 -Total Square Cm 2.40 -Wound/Ulcer Outcome Not Healed -Ulcer Cleansing Rinsed/ Irrigated with Saline -Foul Odor after Cleansing No -Bioengineered Tissue No -Bleeding Controlled with Pressure -Offloading No Pain Scale: 0-10 Numeric Is Patient Pain Free? 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 In the 1970's, she was diagnosed with malignant melanoma of the right calf, with metastasis to lymph nodes in the right groin. She underwent excision of the melanoma with right groin lymphadenectomy. She was subsequently treated with a long series of radiation treatments to the right groin. During the days of her radiation treatment, it is suspected that the radiation techniques were somewhat early in their evolution, and quite likely that the patient received massive doses of radiation exposure, exceeding doses which would be considered appropriate today, with techniques which are primitive by today's standards. As result, the patient has developed soft tissue radiation injury, and has previously been treated at our wound center in the past with a series of approximately 90 hyperbaric oxygen therapy treatments, in 2011. She presented with recurrence of soft tissue radionecrosis in the right groin. Hyperbaric oxygen therapy treatments were initiated, and the patient has undergone a series of 90 hyperbaric oxygen treatment sessions. She has shown mild benefit from the hyperbaric oxygen treatments. At this time, there is no clinical evidence of infection or cellulitis in the daniel-ulcer area. However, the patient is responding very slowly to the variety of conventional treatment measures which have been implemented. In review of the patient's past history, such has been the case previously, as each treatment course has been rather protracted and lengthy in nature to achieve ultimate healing. The patient was seen and evaluated in consultation at [facility] recently (Dr. Harding), which had been arranged by our facility. We have now received medical records related to the patient's recent visit at [facility]. Judging from the impression at the conclusion of her consultation, no significant new recommendations have been made. Patient has been advised to k eep the wound area clean and dry, and to change the Mary dressing daily. She was educated in the appropriate diet. Culture results from June 05, 2018, reveal rare growth of Staphylococcus aureus and Corynebacterium striatum. There is also an anaerobic cocci. However, given that we have seen progress in ulcer healing, and there is no obvious sign of infection, we are to forego prescribing an antibiotic at this time. It is likely that the organisms isolated represent normal skin mare in this area. Plan: The patient has been the recipient of 10 EpiFix applications. We have transitioned to the use of Mary topically. No new recommendations of significance were elucidated recently by the wound care facility at [facility]. The patient will return in 1 week for reassessment. The patient is to continue with a nutritious diet. Biopsies of the ulceration have been obtained, and the results are negative for malignancy. Consideration had been given to the use of a skin graft substitute, Grafix Core, but was denied by the patient's insurance. Influenza vaccine was not administered today. The patient is not a smoker. She stands 5 feet 7 inches tall. She weighs 198 pounds. Her BMI is 31, which places her in a class I weight category. Weight loss has been recommended. She is to collaborate with her primary care physician in this regard.
[2018-06-18 15:35] VITALS: BP 151/80; PULSE 96; RESP 18; TEMP 36.5; BMI 68.3
--- NOTE | 2018-06-18 16:18 | HP.PCM_ITS ---
(1) History of uterine cancer Status: Chronic Current Visit: No Code(s): Z85.42 - Personal history of malignant neoplasm of other parts of uterus (2) History of melanoma Status: Chronic Current Visit: Yes Code(s): Z85.820 - Personal history of malignant melanoma of skin (3) Hyperlipidemia Status: Chronic Current Visit: No Code(s): E78.5 - Hyperlipidemia, unspecified (4) GERD (gastroesophageal reflux disease) Status: Chronic Current Visit: No Code(s): K21.9 - Gastro-esophageal reflux disease without esophagitis (5) Ulcer of right groin Status: Chronic Current Visit: Yes Qualifiers: Non-pressure ulcer stage: with fat layer exposed Code(s): L98.499 - Non-pressure chronic ulcer of skin of other sites with unspecified severity (6) Obesity (BMI 30.0-34.9) Status: Chronic Current Visit: No Code(s): E66.9 - Obesity, unspecified (7) Amputee, above knee Status: Chronic Current Visit: No Qualifiers: Code(s): Z89.619 - Acquired absence of unspecified leg above knee (8) Soft tissue radionecrosis Status: Chronic Current Visit: Yes Code(s): L59.8 - Other specified disorders of the skin and subcutaneous tissue related to radiation; Y84.2 - Radiological procedure and radiotherapy as the cause of abnormal reaction of the patient, or of later complication, without mention of misadventure at the time of the procedure (9) soft tissue radiation injury Status: Chronic Current Visit: Yes History of Present Illness Chief Complaint: 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 The patient underwent excision of her melanoma with lymphadenectomy in the right groin. She also underwent lengthy radiation treatments at the [facility] in [place], [place]. Melanoma recurred, and the patient was subsequently treated with monoclonal antibodies in 1984. 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 Treatment included local ulcer care and hyperbaric oxygen therapy. She underwent a total of nearly 90 treatments of hyperbaric oxygen therapy. It is known that she tolerated the therapies well, and derived significant benefit. She relates no history of claustrophobia, or other complications related to the hyperbaric oxygen therapy treatments. She has no history of barotrauma to lungs, ears, etc. Her medical history has been reviewed, without any evidence of contraindications to hyperbaric oxygen therapy. Hyperbaric oxygen therapy has been administered for nearly 90 treatment sessions. We are currently using EpiFix allografts, and she has undergone 8 applications thus far. The patient's history suggests that the right groin wound in the past responded to hyperbaric oxygen therapy, but required 90 such sessions. It appears as though the patient's current clinical course is mimicking that of the past, with wound healing which is very recalcitrant to conventional treatment measures. 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 She is undergone excision of melanoma from the right calf, with lymphadenectomy of the right groin in the 1969's. She subsequently required surgeries of the right thigh related to osteomyelitis, MRSA infection, and radiation injury to the right femoral artery. Ultimately, the patient required right above-knee amp utation, performed in 2000. She also has a remote history of open reduction and internal fixation of a right ankle fracture. Allergies/Adverse Reactions: Allergies No Known Allergies Allergy (Verified 06/20/17 09:22) Home Medications: Ambulatory Orders Medication Instructions Recorded Famotidine 20 mg PO 06/20/17 Pravastatin [Pravachol] 20 mg PO DAILY 06/20/17 - Family History Maternal - - The patient's mother is 98 years of age and relatively healthy. The patient's father at age of 79 with a history of cardiomyopathy. Smoking Status: Former smoker Tobacco Use: Non-smoker Review of Systems Constitutional: Denies: Chills, Fever, Weight Change Eyes: Denies: Pain, Vision Change HEENT: Denies: Difficulty Hearing, Difficulty Swallowing, Sinus Congestion Cardiovascular: Denies: Chest Pain, Palpitations Respiratory: Denies: Cough, Shortness of Breath Gastrointestinal: Denies: Diarrhea, Nausea, Vomiting Genitourinary: Denies: Dysuria, Hematuria Endocrine: Denies: Heat/ Cold Intolerance, Polydipsia, Polyuria Hematologic/ Lymphatic: Denies: Easy Bruising, Easy Bleeding - Physical Exam Vital Signs Temp Pulse Resp BP 97.7 F L 96 18 151/80 H 06/18/18 15:35 06/18/18 15:35 06/18/18 15:35 06/18/18 15:35 General: Alert, Oriented x3, Cooperative, No apparent distress, Well developed, Well nourished HEENT: Atraumatic, PERRLA, EOMI, Normocephalic Oral: Moist Mucosa Neck: No JVD Lungs: Normal air movement Abdomen: Non-Distended Extremities: No clubbing, No cyanosis, No edema, No Calf Tenderness, - - A well- healed right above-knee amputation stump is noted. The ulceration in the right groin shows some evidence of improvement. There is increasing epithelialization, particularly at the superior pole. Centrally, there are increasing amounts of bioburden and nonviable tissue. Dimensions are documented elsewhere, with evidence that the ulceration is decreasing in size. There is no sign of infection or cellulitis. Skin: No rashes Wound Measurements and Assessment WC - Nurse 1 - General Ulcer Measurement Start: 06/12/18 08:18 Freq: Status: Active Protocol: Activity Type Activity Date Activity User E-Sign Co-Sign Detail Recorded Client Recorded Date Recorded By Document 06/18/18 15:35 DL [id number] 06/18/18 15:42 DL 06/18/18 15:35 Wound Center Nurse 1 [Ulcer Assessment] #5 R Groin -Current Size (cm) - Length 3.5 -Current Size (cm) - Width 1 -Current Size (cm) - Depth 0.9 -Total Square Cm 3.5 -Photo Taken No -Tunneling Yes -Tunneling Position (O'clock) 9 -Tunneling Distance (cm) 0.5 -Exudate Amt Small (1-33%) -Exudate Type Serosanguineous -Wound Margin Thickened & Rolled Under -Granulation Amt Medium (34-66%) -Granulation Quality Pale Shellman -Necrosis Amt Medium (34-66%) -Necrotic Tissue Type Adherent Slough -Structure Exposed N/A -Texture (Blanche-wound Skin Appearance) Scarring -Moisture (Blanche-wound Skin Appearance No Abnormality ) -Color (Blanche-wound Skin Appearance) No Abnormality -Temperature (Blanche-wound Skin No Abnormality Appearance) (Pt Warm) -Tenderness on Palpation (Blanche-wound No Skin Appearance) -Ulcer Cleansing Rinsed/ Irrigated with Saline -Foul Odor after Cleansing No -Anesthetic Used 4% Lidocaine Solution WC - Nurse 2 - General Ulcer CM Notes Start: 06/12/18 08:18 Freq: Status: Active Protocol: Activity Type Activity Date Activity User E-Sign Co-Sign Detail Recorded Client Recorded Date Recorded By Document 06/18/18 16:07 [email or web address] [id number] 06/18/18 16:10 KEILA 06/18/18 16:07 Wound Center Nurse 2 [Procedure/Treatment] -Time 16:08 -Correct Patient Yes -Correct Side, Site, Position Yes -Correct Procedure Yes -Procedure Performed Yes -Type of Procedure Debridement -Clinical Debridement Subcutaneous -Post Debridement Size (cm) - Length 2.0 -Post Debridement Size (cm) - Width 0.9 -Post Debridement Size (cm) - Depth 0.6 -Total Square Cm 1.80 -Wound/Ulcer Outcome Not Healed -Ulcer Cleansing Rinsed/ Irrigated with Saline -Foul Odor after Cleansing No -Bioengineered Tissue No -Topical Lidocaine (%) 4 -Lidocaine (ml) 5 -Bleeding Controlled with NA -Offloading No -Treatment Response Procedure Tolerated Well [See Physician Procedure note for Specifics] Pain Scale: 0-10 Numeric [Pain] -Is Patient Pain Free? Yes Musculoskeletal: No Muscle Wasting Neurological: Cranial nerves II-XII grossly intact, Neuro grossly intact Psych/Mental Status: Normal Affect, Appropriate, Alert and oriented to time, place, person, mood and affect Debridement Note Post-Debridement Measurements/Treatment WC - Nurse 2 - General Ulcer CM Notes Start: 06/12/18 08:18 Freq: Status: Active Protocol: Activity Type Activity Date Activity User E-Sign Co-Sign Detail Recorded Client Recorded Date Recorded By Document 06/12/18 08:58 DV [id number] 06/12/18 09:03 DV Document 06/18/18 16:07 [id number] 06/18/18 16:10 JS 06/12/18 06/18/18 08:58 16:07 Wound Center Nurse 2 #5 R Groin -Time 08:59 16:08 -Correct Patient Yes Yes -Correct Side, Site, Position Yes Yes -Correct Procedure Yes Yes -Procedure Performed Yes Yes -Type of Procedure Debridement Debridement -Clinical Debridement Subcutaneous Subcutaneous -Post Debridement Size (cm) - Length 3.0 2.0 -Post Debridement Size (cm) - Width 0.8 0.9 -Post Debridement Size (cm) - Depth 0.5 0.6 -Total Square Cm 2.40 1.80 -Wound/Ulcer Outcome Not Healed Not Healed -Ulcer Cleansing Rinsed/ Rinsed/ Irrigated with Irrigated with Saline Saline -Foul Odor after Cleansing No No -Bioengineered Tissue No No -Topical Lidocaine (%) 4 -Lidocaine (ml) 5 -Bleeding Controlled with Pressure NA -Offloading No No -Treatment Response Procedure Tolerated Well Pain Scale: 0-10 Numeric Is Patient Pain Free? 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 In the 1969's, she was diagnosed with malignant melanoma of the right calf, with metastasis to lymph nodes in the right groin. She underwent excision of the melanoma with right groin lymphadenectomy. She was subsequently treated with a long series of radiation treatments to the right groin. During the days of her radiation treatment, it is suspected that the radiation techniques were somewhat early in their evolution, and quite likely that the patient received massive doses of radiation exposure, exceeding doses which would be considered appropriate today, with techniques which are primitive by today's standards. As result, the patient has developed soft tissue radiation injury, and has previously been treated at our wound center in the past with a series of approximately 90 hyperbaric oxygen therapy treatments, in 2011. She presented with recurrence of soft tissue radionecrosis in the right groin. Hyperbaric oxygen therapy treatments were initiated, and the patient has undergone a series of 90 hyperbaric oxygen treatment sessions. She has shown mild benefit from the hyperbaric oxygen treatments. At this time, there is no clinical evidence of infection or cellulitis in the blanche-ulcer area. However, the patient is responding very slowly to the variety of conventional treatment measures which have been implemented. In review of the patient's past history, such has been the case previously, as each treatment course has been rather protracted and lengthy in nature to achieve ultimate healing. The patient was seen and evaluated in consultation at [facility] recently (Dr. Harding), which had been arranged by our facility. We have now received medical records related to the patient's recent visit at [facility]. Judging from the impression at the conclusion of her consultation, no significant new recommendations have been made. Patient has been advised to keep the wound area clean and dry, and to change the Mary dressing daily. She was educated in the appropriate diet. Culture results from June 05, 2018, revealed rare growth of Staphylococcus aureus and Corynebacterium striatum. There is also an anaerobic cocci. However, given that we have seen progress in ulcer healing, and there is no obvious sign of infection, we are to forego prescribing an antibiotic at this time. It is likely that the organisms isolated represent normal skin mare in this area. Plan: The patient has been the recipient of 10 EpiFix applications. We have transitioned to the use of Mary topically. No new recommendations of significance were elucidated recently by the wound care facility at [facility]. The patient will return in 1 week for reassessment. The patient is to continue with a nutritious diet. Biopsies of the ulceration have been obtained, and the results are negative for malignancy. Consideration had been given to the use of a skin graft substitute, Grafix Core, but was denied by the patient's insurance. Influenza vaccine was not administered today. The patient is not a smoker. She stands 5 feet 7 inches tall. She weighs 198 pounds. Her BMI is 31, which places her in a class I weight category. Weight loss has been recommended. She is to collaborate with her primary care physician in this regard.
[2018-06-25 15:13] VITALS: BP 130/89; PULSE 87; RESP 20; TEMP 36.4; BMI 68.3
--- NOTE | 2018-06-25 16:20 | HP.PCM_ITS ---
(1) History of uterine cancer Status: Chronic Current Visit: No Code(s): Z85.42 - Personal history of malignant neoplasm of other parts of uterus (2) History of melanoma Status: Chronic Current Visit: Yes Code(s): Z85.820 - Personal history of malignant melanoma of skin (3) Hyperlipidemia Status: Chronic Current Visit: No Code(s): E78.5 - Hyperlipidemia, unspecified (4) GERD (gastroesophageal reflux disease) Status: Chronic Current Visit: No Code(s): K21.9 - Gastro-esophageal reflux disease without esophagitis (5) Ulcer of right groin Status: Chronic Current Visit: Yes Qualifiers: Non-pressure ulcer stage: with fat layer exposed Code(s): L98.499 - Non-pressure chronic ulcer of skin of other sites with unspecified severity (6) Obesity (BMI 30.0-34.9) Status: Chronic Current Visit: No Code(s): E66.9 - Obesity, unspecified (7) Amputee, above knee Status: Chronic Current Visit: No Qualifiers: Code(s): Z89.619 - Acquired absence of unspecified leg above knee (8) Soft tissue radionecrosis Status: Chronic Current Visit: Yes Code(s): L59.8 - Other specified disorders of the skin and subcutaneous tissue related to radiation; Y84.2 - Radiological procedure and radiotherapy as the cause of abnormal reaction of the patient, or of later complication, without mention of misadventure at the time of the procedure (9) soft tissue radiation injury Status: Chronic Current Visit: Yes History of Present Illness Chief Complaint: 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 The patient underwent excision of her melanoma with lymphadenectomy in the right groin. She also underwent lengthy radiation treatments at the [facility] in [place], [place]. Melanoma recurred, and the patient was subsequently treated with monoclonal antibodies in 1984. 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 Treatment included local ulcer care and hyperbaric oxygen therapy. She underwent a total of nearly 90 treatments of hyperbaric oxygen therapy. It is known that she tolerated the therapies well, and derived significant benefit. She relates no history of claustrophobia, or other complications related to the hyperbaric oxygen therapy treatments. She has no history of barotrauma to lungs, ears, etc. Her medical history has been reviewed, without any evidence of contraindications to hyperbaric oxygen therapy. Hyperbaric oxygen therapy has been administered for nearly 90 treatment sessions. We are currently using EpiFix allografts, and she has undergone 8 applications thus far. The patient's history suggests that the right groin wound in the past responded to hyperbaric oxygen therapy, but required 90 such sessions. It appears as though the patient's current clinical course is mimicking that of the past, with wound healing which is very recalcitrant to conventional treatment measures. 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 She is undergone excision of melanoma from the right calf, with lymphadenectomy of the right groin in the 1969's. She subsequently required surgeries of the right thigh related to osteomyelitis, MRSA infection, and radiation injury to the right femoral artery. Ultimately, the patient required right above-knee amp utation, performed in 2000. She also has a remote history of open reduction and internal fixation of a right ankle fracture. Allergies/Adverse Reactions: Allergies No Known Allergies Allergy (Verified 06/20/17 09:22) Home Medications: Ambulatory Orders Medication Instructions Recorded Famotidine 20 mg PO 06/20/17 Pravastatin [Pravachol] 20 mg PO DAILY 06/20/17 - Family History Maternal - - The patient's mother is 98 years of age and relatively healthy. The patient's father at age of 79 with a history of cardiomyopathy. Smoking Status: Former smoker Tobacco Use: Non-smoker Review of Systems Constitutional: Denies: Chills, Fever, Weight Change Eyes: Denies: Pain, Vision Change HEENT: Denies: Difficulty Hearing, Difficulty Swallowing, Sinus Congestion Cardiovascular: Denies: Chest Pain, Palpitations Respiratory: Denies: Cough, Shortness of Breath Gastrointestinal: Denies: Diarrhea, Nausea, Vomiting Genitourinary: Denies: Dysuria, Hematuria Endocrine: Denies: Heat/ Cold Intolerance, Polydipsia, Polyuria Hematologic/ Lymphatic: Denies: Easy Bruising, Easy Bleeding - Physical Exam Vital Signs Temp Pulse Resp BP 97.5 F L 87 20 H 130/89 H 06/25/18 15:13 06/25/18 15:13 06/25/18 15:13 06/25/18 15:13 General: Alert, Oriented x3, Cooperative, No apparent distress, Well developed, Well nourished HEENT: Atraumatic, PERRLA, EOMI, Normocephalic Oral: Moist Mucosa Neck: No JVD Lungs: Normal air movement Abdomen: Non-Distended Extremities: No clubbing, No cyanosis, No edema, No Calf Tenderness, - - A well- healed right above-knee amputation stump is noted. The ulceration in the right groin shows some improvement. There is evidence of epithelialization both superiorly and inferiorly. Centrally, however, there remains an open ulceration, with a moderate amount of bioburden and nonviable tissue. There is no sign of infection or cellulitis. Skin: No rashes Wound Measurements and Assessment WC - Nurse 1 - General Ulcer Measurement Start: 06/12/18 08:18 Freq: Status: Active Protocol: Activity Type Activity Date Activity User E-Sign Co-Sign Detail Recorded Client Recorded Date Recorded By Document 06/25/18 15:13 DL [id number] 06/25/18 15:22 DL 06/25/18 15:13 Wound Center Nurse 1 [Ulcer Assessment] #5 R Groin -Current Size (cm) - Length 3.1 -Current Size (cm) - Width 0.7 -Current Size (cm) - Depth 0.8 -Total Square Cm 2.17 -Photo Taken No -Undermining/Tunneling Starts (O' 9 clock) -Undermining/Tunneling Ends (O'clock) 10 -Maximum Distance (cm) 0.5 -Exudate Amt Small (1-33%) -Exudate Type Serosanguineous -Wound Margin Thickened & Rolled Under -Granulation Amt Large (67-100%) -Granulation Quality [place] -Necrosis Amt Small (1-33%) -Necrotic Tissue Type Adherent Slough -Structure Exposed N/A -Texture (Blanche-wound Skin Appearance) Scarring -Moisture (Blanche-wound Skin Appearance No Abnormality ) -Color (Blanche-wound Skin Appearance) Rubor -Temperature (Blanche-wound Skin No Abnormality Appearance) (Pt Warm) -Ulcer Cleansing Wound Cleanser -Foul Odor after Cleansing No -Anesthetic Used 4% Lidocaine Solution - Nurse 2 - General Ulcer CM Notes Start: 06/12/18 08:18 Freq: Status: Active Protocol: Activity Type Activity Date Activity User E-Sign Co-Sign Detail Recorded Client Recorded Date Recorded By Document 06/25/18 16:13 KEILA [id number] 06/25/18 16:13 KEILA 06/25/18 16:13 Wound Center Nurse 2 [Procedure/Treatment] -Time 16:13 -Correct Patient Yes -Correct Side, Site, Position Yes -Correct Procedure Yes -Procedure Performed Yes -Type of Procedure Debridement -Clinical Debridement Subcutaneous -Post Debridement Size (cm) - Length 0.4 -Post Debridement Size (cm) - Width 0.8 -Post Debridement Size (cm) - Depth 0.5 -Total Square Cm 0.32 -Wound/Ulcer Outcome Not Healed -Ulcer Cleansing Rinsed/ Irrigated with Saline -Foul Odor after Cleansing No -Bioengineered Tissue No -Topical Lidocaine (%) 4 -Lidocaine (ml) 5 -Bleeding Controlled with NA -Treatment Response Procedure Tolerated Well [See Physician Procedure note for Specifics] Pain Scale: 0-10 Numeric [Pain] -Is Patient Pain Free? Yes Neurological: Cranial nerves II-XII grossly intact, Neuro grossly intact Psych/Mental Status: Normal Affect, Appropriate, Alert and oriented to time, place, person, mood and affect Debridement Note Post-Debridement Measurements/Treatment - Nurse 2 - General Ulcer CM Notes Start: 06/12/18 08:18 Freq: Status: Active Protocol: Activity Type Activity Date Activity User E-Sign Co-Sign Detail Recorded Client Recorded Date Recorded By Document 06/12/18 08:58 [email or web address] [id number] 06/12/18 09:03 DV Document 06/18/18 16:07 [id number] 06/18/18 16:10 Document 06/25/18 16:13 [id number] 06/25/18 16:13 06/12/18 06/18/18 06/25/18 08:58 16:07 16:13 Wound Center Nurse 2 #5 R Groin -Time 08:59 16:08 16:13 -Correct Patient Yes Yes Yes -Correct Side, Site, Position Yes Yes Yes -Correct Procedure Yes Yes Yes -Procedure Performed Yes Yes Yes -Type of Procedure Debridement Debridement Debridement -Clinical Debridement Subcutaneous Subcutaneous Subcutaneous -Post Debridement Size (cm) - Length 3.0 2.0 0.4 -Post Debridement Size (cm) - Width 0.8 0.9 0.8 -Post Debridement Size (cm) - Depth 0.5 0.6 0.5 -Total Square Cm 2.40 1.80 0.32 -Wound/Ulcer Outcome Not Healed Not Healed Not Healed -Ulcer Cleansing Rinsed/ Rinsed/ Rinsed/ Irrigated with Irrigated with Irrigated with Saline Saline Saline -Foul Odor after Cleansing No No No -Bioengineered Tissue No No No -Topical Lidocaine (%) 4 4 -Lidocaine (ml) 5 5 -Bleeding Controlled with Pressure NA NA -Offloading No No -Treatment Response Procedure Procedure Tolerated Well Tolerated Well Pain Scale: 0-10 Numeric Is Patient Pain Free? 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 In the 1970's, she was diagnosed with malignant melanoma of the right calf, with metastasis to lymph nodes in the right groin. She underwent excision of the melanoma with right groin lymphadenectomy. She was subsequently treated with a long series of radiation treatments to the right groin. During the days of her radiation treatment, it is suspected that the radiation techniques were somewhat early in their evolution, and quite likely that the patient received massive doses of radiation exposure, exceeding doses which would be considered appropriate today, with techniques which are primitive by today's standards. As result, the patient has developed soft tissue radiation injury, and has previously been treated at our wound center in the past with a series of approximately 90 hyperbaric oxygen therapy treatments, in 2011. She presented with recurrence of soft tissue radionecrosis in the right groin. Hyperbaric oxygen therapy treatments were initiated, and the patient has undergone a series of 90 hyperbaric oxygen treatment sessions. She has shown mild benefit from the hyperbaric oxygen treatments. At this time, there is no clinical evidence of infection or cellulitis in the blanche-ulcer area. However, the patient is responding very slowly to the variety of conventional treatment measures which have been implemented. In review of the patient's past history, such has been the case previously, as each treatment course has been rather protracted and lengthy in nature to achieve ultimate healing. The patient was seen and evaluated in consultation at [facility] recently (Dr. Harding), which had been arranged by our facility. We have now received medical records related to the patient's recent visit at [facility]. Judging from the impression at the conclusion of her consultation, no sig nificant new recommendations have been made. Patient has been advised to keep the wound area clean and dry, and to change the Mary dressing daily. She was educated in the appropriate diet. Culture results from June 05, 2018, revealed rare growth of Staphylococcus aureus and Corynebacterium striatum. There is also an anaerobic cocci. However, given that we have seen progress in ulcer healing, and there is no obvious sign of infection, we are to forego prescribing an antibiotic at this time. It is likely that the organisms isolated represent normal skin mare in this area. Plan: The patient has been the recipient of 10 EpiFix applications. We are to transition from the use of Mary, to the use of collagenase Santyl topically once daily. No new recommendations of significance were elucidated recently by the wound care facility at [facility]. The patient will return in 2 weeks for reassessment. The patient is to continue with a nutritious diet. Biopsies of the ulceration have been obtained, and the results are negative for malignancy. Consideration had been given to the use of a skin graft substitute, Grafix Core, but was denied by the patient's insurance. Influenza vaccine was not administered today. The patient is not a smoker. She stands 5 feet 7 inches tall. She weighs 198 pounds. Her BMI is 31, which places her in a class I weight category. Weight loss has been recommended. She is to collaborate with her primary care physician in this regard.
[2018-07-09 14:35] VITALS: BP 145/100; PULSE 93; RESP 16; TEMP 37.2; BMI 68.3
--- NOTE | 2018-07-09 15:01 | HP.PCM_ITS ---
(1) History of uterine cancer Status: Chronic Current Visit: No Code(s): Z85.42 - Personal history of malignant neoplasm of other parts of uterus (2) History of melanoma Status: Chronic Current Visit: Yes Code(s): Z85.820 - Personal history of malignant melanoma of skin (3) Hyperlipidemia Status: Chronic Current Visit: No Code(s): E78.5 - Hyperlipidemia, unspecified (4) GERD (gastroesophageal reflux disease) Status: Chronic Current Visit: No Code(s): K21.9 - Gastro-esophageal reflux disease without esophagitis (5) Ulcer of right groin Status: Chronic Current Visit: Yes Qualifiers: Non-pressure ulcer stage: with fat layer exposed Code(s): L98.499 - Non-pressure chronic ulcer of skin of other sites with unspecified severity (6) Obesity (BMI 30.0-34.9) Status: Chronic Current Visit: No Code(s): E66.9 - Obesity, unspecified (7) Amputee, above knee Status: Chronic Current Visit: No Qualifiers: Code(s): Z89.619 - Acquired absence of unspecified leg above knee (8) Soft tissue radionecrosis Status: Chronic Current Visit: Yes Code(s): L59.8 - Other specified disorders of the skin and subcutaneous tissue related to radiation; Y84.2 - Radiological procedure and radiotherapy as the cause of abnormal reaction of the patient, or of later complication, without mention of misadventure at the time of the procedure (9) soft tissue radiation injury Status: Chronic Current Visit: Yes History of Present Illness Chief Complaint: 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 The patient underwent excision of her melanoma with lymphadenectomy in the right groin. She also underwent lengthy radiation treatments at the [facility] in [place], [place]. Melanoma recurred, and the patient was subsequently treated with monoclonal antibodies in 1984. 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 Treatment included local ulcer care and hyperbaric oxygen therapy. She underwent a total of nearly 90 treatments of hyperbaric oxygen therapy. It is known that she tolerated the therapies well, and derived significant benefit. She relates no history of claustrophobia, or other complications related to the hyperbaric oxygen therapy treatments. She has no history of barotrauma to lungs, ears, etc. Her medical history has been reviewed, without any evidence of contraindications to hyperbaric oxygen therapy. Hyperbaric oxygen therapy has been administered for nearly 90 treatment sessions. We are currently using EpiFix allografts, and she has undergone 8 applications thus far. The patient's history suggests that the right groin wound in the past responded to hyperbaric oxygen therapy, but required 90 such sessions. It appears as though the patient's current clinical course is mimicking that of the past, with wound healing which is very recalcitrant to conventional treatment measures. 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 She is undergone excision of melanoma from the right calf, with lymphadenectomy of the right groin in the 1969's. She subsequently required surgeries of the right thigh related to osteomyelitis, MRSA infection, and radiation injury to the right femoral artery. Ultimately, the patient required right above-knee amp utation, performed in 2000. She also has a remote history of open reduction and internal fixation of a right ankle fracture. Allergies/Adverse Reactions: Allergies No Known Allergies Allergy (Verified 06/20/17 09:22) Home Medications: Ambulatory Orders Medication Instructions Recorded Famotidine 20 mg PO 06/20/17 Pravastatin [Pravachol] 20 mg PO DAILY 06/20/17 - Family History Maternal - - The patient's mother is 98 years of age and relatively healthy. The patient's father at age of 79 with a history of cardiomyopathy. Smoking Status: Former smoker Tobacco Use: Non-smoker Review of Systems Constitutional: Denies: Chills, Fever, Weight Change Eyes: Denies: Pain, Vision Change HEENT: Denies: Difficulty Hearing, Difficulty Swallowing, Sinus Congestion Cardiovascular: Denies: Chest Pain, Palpitations Respiratory: Denies: Cough, Shortness of Breath Gastrointestinal: Denies: Diarrhea, Nausea, Vomiting Genitourinary: Denies: Dysuria, Hematuria Endocrine: Denies: Heat/ Cold Intolerance, Polydipsia, Polyuria Hematologic/ Lymphatic: Denies: Easy Bruising, Easy Bleeding - Physical Exam Vital Signs Temp Pulse Resp BP 98.9 F 93 16 145/100 H 07/09/18 14:35 07/09/18 14:35 07/09/18 14:35 07/09/18 14:35 General: Alert, Oriented x3, Cooperative, No apparent distress, Well developed, Well nourished HEENT: Atraumatic, PERRLA, EOMI, Normocephalic Oral: Moist Mucosa Neck: No JVD Lungs: Normal air movement Abdomen: Non-Distended Extremities: No clubbing, No cyanosis, No edema, No Calf Tenderness, - - A well- healed right above-knee amputation stump is noted. The ulceration in the right groin appears to be diminishing in size. There is evidence of epithelialization both superiorly and inferiorly. There is no sign of infection or cellulitis. The defect persists in the very middle of the ulceration, and dimensions are documented elsewhere. There is a moderate amount of bioburden. Skin: No rashes Wound Measurements and Assessment WC - Nurse 1 - General Ulcer Measurement Start: 06/12/18 08:18 Freq: Status: Active Protocol: Activity Type Activity Date Activity User E-Sign Co-Sign Detail Recorded Client Recorded Date Recorded By Document 07/09/18 14:35 [id number] 07/09/18 14:37 07/09/18 14:35 Wound Center Nurse 1 [Ulcer Assessment] #5 R Groin -Combined with other wound No -Current Size (cm) - Length 2.3 -Current Size (cm) - Width 0.4 -Current Size (cm) - Depth 0.3 -Total Square Cm 0.92 -Photo Taken No -Epithelialization None Present -Tunneling Yes -Tunneling Position (O'clock) 7 -Tunneling Distance (cm) 0.4 -Undermining/Tunneling No -Circular Undermining No -Exudate Amt None Present (0 %) -Wound Margin Distinct, Outline Attached -Granulation Quality N/A -Slough/Fibrin No -Necrosis Amt None Present (0 %) -Texture (Blanche-wound Skin Appearance) Assessed -Moisture (Blanche-wound Skin Appearance Assessed ) -Color (Blanche-wound Skin Appearance) Assessed -Temperature (Blanche-wound Skin No Abnormality Appearance) (Pt Warm) -Tenderness on Palpation (Blanche-wound No Skin Appearance) -Ulcer Cleansing Rinsed/ Irrigated with Saline -Foul Odor after Cleansing No -Anesthetic Used 4% Lidocaine Solution [Edema Assessment] -Lower Limb Edema Present NA - Nurse 2 - General Ulcer CM Notes Start: 06/12/18 08:18 Freq: Status: Active Protocol: Activity Type Activity Date Activity User E-Sign Co-Sign Detail Recorded Client Recorded Date Recorded By Document 07/09/18 14:45 [email or web address] [id number] 07/09/18 14:50 07/09/18 14:45 Wound Center Nurse 2 [Procedure/Treatment] #5 R Groin -Time 14:45 -Correct Patient Yes -Correct Side, Site, Position Yes -Correct Procedure Yes -Procedure Performed Yes -Type of Procedure Debridement -Clinical Debridement Subcutaneous -Post Debridement Size (cm) - Length 3.0 -Post Debridement Size (cm) - Width 0.7 -Post Debridement Size (cm) - Depth 0.8 -Total Square Cm 2.10 -Wound/Ulcer Outcome Not Healed -Ulcer Cleansing Rinsed/ Irrigated with Saline -Foul Odor after Cleansing No -Bioengineered Tissue No -Topical Lidocaine (%) 4 -Lidocaine (ml) 5 -Bleeding Controlled with NA -Offloading No -Treatment Response Procedure Tolerated Well [See Physician Procedure note for Specifics] Pain Scale: 0-10 Numeric [Pain] -Is Patient Pain Free? Yes Musculoskeletal: No Muscle Wasting Neurological: Cranial nerves II-XII grossly intact, Neuro grossly intact Psych/Mental Status: Normal Affect, Appropriate, Alert and oriented to time, place, person, mood and affect Debridement Note Post-Debridement Measurements/Treatment WC - Nurse 2 - General Ulcer CM Notes Start: 06/12/18 08:18 Freq: Status: Active Protocol: Activity Type Activity Date Activity User E-Sign Co-Sign Detail Recorded Client Recorded Date Recorded By Document 06/12/18 08:58 [id number] 06/12/18 09:03 Document 06/18/18 16:07 [id number] 06/18/18 16:10 JS Document 06/25/18 16:13 [id number] 06/25/18 16:13 Document 07/09/18 14:45 [id number] 07/09/18 14:50 06/12/18 06/18/18 06/25/18 08:58 16:07 16:13 Wound Center Nurse 2 #5 R Groin -Time 08:59 16:08 16:13 -Correct Patient Yes Yes Yes -Correct Side, Site, Position Yes Yes Yes -Correct Procedure Yes Yes Yes -Procedure Performed Yes Yes Yes -Type of Procedure Debridement Debridement Debridement -Clinical Debridement Subcutaneous Subcutaneous Subcutaneous -Post Debridement Size (cm) - Length 3.0 2.0 0.4 -Post Debridement Size (cm) - Width 0.8 0.9 0.8 -Post Debridement Size (cm) - Depth 0.5 0.6 0.5 -Total Square Cm 2.40 1.80 0.32 -Wound/Ulcer Outcome Not Healed Not Healed Not Healed -Ulcer Cleansing Rinsed/ Rinsed/ Rinsed/ Irrigated with Irrigated with Irrigated with Saline Saline Saline -Foul Odor after Cleansing No No No -Bioengineered Tissue No No No -Topical Lidocaine (%) 4 4 -Lidocaine (ml) 5 5 -Bleeding Controlled with Pressure NA NA -Offloading No No -Treatment Response Procedure Procedure Tolerated Well Tolerated Well Pain Scale: 0-10 Numeric Is Patient Pain Free? Yes Yes Yes 07/09/18 14:45 Wound Center Nurse 2 #5 R Groin -Time 14:45 -Correct Patient Yes -Correct Side, Site, Position Yes -Correct Procedure Yes -Procedure Performed Yes -Type of Procedure Debridement -Clinical Debridement Subcutaneous -Post Debridement Size (cm) - Length 3.0 -Post Debridement Size (cm) - Width 0.7 -Post Debridement Size (cm) - Depth 0.8 -Total Square Cm 2.10 -Wound/Ulcer Outcome Not Healed -Ulcer Cleansing Rinsed/ Irrigated with Saline -Foul Odor after Cleansing No -Bioengineered Tissue No -Topical Lidocaine (%) 4 -Lidocaine (ml) 5 -Bleeding Controlled with NA -Offloading No -Treatment Response Procedure Tolerated Well Pain Scale: 0-10 Numeric Is Patient Pain Free? 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 In the 1970's, she was diagnosed with malignant melanoma of the right calf, with metastasis to lymph nodes in the right groin. She underwent excision of the melanoma with right groin lymphadenectomy. She was subsequently treated with a long series of radiation treatments to the right groin. During the days of her radiation treatment, it is suspected that the radiation techniques were somewhat early in their evolution, and quite likely that the patient received massive doses of radiation exposure, exceeding doses which would be considered appropriate today, with techniques which are primitive by today's standards. As result, the patient has developed soft tissue radiation injury, and has previously been treated at our wound center in the past with a series of approximately 90 hyperbaric oxygen therapy treatments, in 2011. She presented with recurrence of soft tissue radionecrosis in the right groin. Hyperbaric oxygen therapy treatments were initiated, and the patient has undergone a series of 90 hyperbaric oxygen treatment sessions. She has shown mild benefit from the hyperbaric oxygen treatments. At this time, there is no clinical evidence of infection or cellulitis in the blanche-ulcer area. However, the patient is responding very slowly to the variety of conventional treatment measures which have been implemented. In review of the patient's past history, such has been the case previously, as each treatment course has been rather protracted and lengthy in nature to achieve ultimate healing. The patient was seen and evaluated in consultation at [facility] recently (Dr. Harding), which had been arranged by our facility. We have now received medical records related to the patient's recent visit at [facility]. Judging from the impression at the conclusion of her consultation, no significant new recommendations have been made. Patient has been advised to keep the wound area clean and dry, and to change the Mary dressing daily. She was educated in the appropriate diet. Culture results from June 05, 2018, revealed rare growth of Staphylococcus aureus and Corynebacterium striatum. There is also an anaerobic cocci. However, given that we have seen progress in ulcer healing, and there is no obvious sign of infection, we are to forego prescribing an antibiotic at this time. It is likely that the organisms isolated represent normal skin mare in this area. Plan: The patient has been the recipient of 10 EpiFix applications. We are to transition from the use of collagenase Santyl topically once daily to the use of Silver Fanta, which will be applied once daily or every other day. No new recommendations of significance were elucidated recently by the wound care facility at [facility]. The patient will return in 1 week for reassessment. The patient is to continue with a nutritious diet. Biopsies of the ulceration have been obtained, and the results are negative for malignancy. Consideration had been given to the use of a skin graft substitute, Grafix Core, but was denied by the patient's insurance. Influenza vaccine was not administered today. The patient is not a smoker. She stands 5 feet 7 inches tall. She weighs 198 pounds. Her BMI is 31, which places her in a class I weight category. Weight loss has been recommended. She is to collaborate with her primary care physician in this regard.
== END 2018-07-09 23:59 ==
LOC: WC 14:30
PROVIDERS: Family Provider Family Medicine; PCP Family Medicine; Referring Provider Surgery; Visit Provider Surgery
DX: L59.8 Other specified disorders of the skin and subcutaneous tissue related to radiation (principal); Y84.2 Radiological procedure and radiotherapy as the cause of abnormal reaction of the patient, or of later complication, without mention of misadventure at the time of the procedure; Z71.3 Dietary counseling and surveillance; E66.9 Obesity, unspecified; K21.9 Gastro-esophageal reflux disease without esophagitis; E78.5 Hyperlipidemia, unspecified; Z85.820 Personal history of malignant melanoma of skin; Z86.14 Personal history of Methicillin resistant Staphylococcus aureus infection; L98.492 Non-pressure chronic ulcer of skin of other sites with fat layer exposed; Z87.891 Personal history of nicotine dependence; Z68.31 Body mass index [BMI] 31.0-31.9, adult
CPT/HCPCS: 11042

== ENCOUNTER → 2018-07-24 15:26 | Outpatient (CLI) | payer OTHER, SELFPAY ==
[2017-12-26 12:18] VITALS: BMI 28.5
== END ==
PROVIDERS: Referring Provider Surgery; Visit Provider Surgery
DX: L98.499 Non-pressure chronic ulcer of skin of other sites with unspecified severity (principal)

== ENCOUNTER 2018-07-31 08:30 | Outpatient (RCR) | payer OTHER, SELFPAY ==
[2018-07-10 00:39] VITALS: BP 145/100; PULSE 93; RESP 16; TEMP 37.2
[2018-07-17 08:12] VITALS: BP 132/84; PULSE 87; RESP 16; TEMP 35.7; BMI 68.3
--- NOTE | 2018-07-17 08:58 | PCM.WC.HP ---
(1) History of uterine cancer Status: Chronic Current Visit: No Code(s): Z85.42 - Personal history of malignant neoplasm of other parts of uterus (2) History of melanoma Status: Chronic Current Visit: Yes Code(s): Z85.820 - Personal history of malignant melanoma of skin (3) Hyperlipidemia Status: Chronic Current Visit: No Code(s): E78.5 - Hyperlipidemia, unspecified (4) GERD (gastroesophageal reflux disease) Status: Chronic Current Visit: No Code(s): K21.9 - Gastro-esophageal reflux disease without esophagitis (5) Ulcer of right groin Status: Chronic Current Visit: Yes Qualifiers: Non-pressure ulcer stage: with fat layer exposed Code(s): L98.499 - Non-pressure chronic ulcer of skin of other sites with unspecified severity (6) Obesity (BMI 30.0-34.9) Status: Chronic Current Visit: No Code(s): E66.9 - Obesity, unspecified (7) Amputee, above knee Status: Chronic Current Visit: Yes Qualifiers: Laterality: right Code(s): Z89.619 - Acquired absence of unspecified leg above knee (8) Soft tissue radionecrosis Status: Chronic Current Visit: Yes Code(s): L59.8 - Other specified disorders of the skin and subcutaneous tissue related to radiation; Y84.2 - Radiological procedure and radiotherapy as the cause of abnormal reaction of the patient, or of later complication, without mention of misadventure at the time of the procedure (9) soft tissue radiation injury Status: Chronic Current Visit: Yes History of Present Illness Chief Complaint: 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 The patient underwent excision of her melanoma with lymphadenectomy in the right groin. She also underwent lengthy radiation treatments at the [facility] in [place], [place]. Melanoma recurred, and the patient was subsequently treated with monoclonal antibodies in 1984. 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 In 2012, the patient was treated in our wound center for ulcerations of the right upper thigh and groin related to soft tissue radiation necrosis. Treatment included local ulcer care and hyperbaric oxygen therapy. She underwent a total of nearly 90 treatments of hyperbaric oxygen therapy. It is known that she tolerated the therapies well, and derived significant benefit. She relates no history of claustrophobia, or other complications related to the hyperbaric oxygen therapy treatments. She has no history of barotrauma to lungs, ears, etc. Her medical history has been reviewed, without any evidence of contraindications to hyperbaric oxygen therapy. Hyperbaric oxygen therapy has been administered for nearly 90 treatment sessions. We are currently using EpiFix allografts, and she has undergone 8 applications thus far. The patient's history suggests that the right groin wound in the past responded to hyperbaric oxygen therapy, but required 90 such sessions. It appears as though the patient's current clinical course is mimicking that of the past, with wound healing which is very recalcitrant to conventional treatment measures. 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 She is undergone excision of melanoma from the right calf, with lymphadenectomy of the right groin in the 1969's. She subsequently required surgeries of the right thigh related to osteomyelitis, MRSA infection, and radiation injury to the right femoral artery. Ultimately, the patient required right above-knee amputation, performed in 2000. She also has a remote history of open reduction and internal fixation of a right ankle fracture. Allergies/Adverse Reactions: Allergies No Known Allergies Allergy (Verified 06/20/17 09:22) Home Medications: Ambulatory Orders Medication Instructions Recorded Famotidine 20 mg PO 06/20/17 Pravastatin [Pravachol] 20 mg PO DAILY 06/20/17 - Family History Maternal - - The patient's mother is 98 years of age and relatively healthy. The patient's father at age of 79 with a history of cardiomyopathy. Smoking Status: Former smoker Tobacco Use: Non-smoker Review of Systems Constitutional: Denies: Chills, Fever, Weight Change Eyes: Denies: Pain, Vision Change HEENT: Denies: Difficulty Hearing, Difficulty Swallowing, Sinus Congestion Cardiovascular: Denies: Chest Pain, Palpitations Respiratory: Denies: Cough, Shortness of Breath Gastrointestinal: Denies: Diarrhea, Nausea, Vomiting Genitourinary: Denies: Dysuria, Hematuria Endocrine: Denies: Heat/ Cold Intolerance, Polydipsia, Polyuria Hematologic/ Lymphatic: Denies: Easy Bruising, Easy Bleeding - Physical Exam Vital Signs Temp Pulse Resp BP 96.2 F L 87 16 132/84 H 07/17/18 08:12 07/17/18 08:12 07/17/18 08:12 07/17/18 08:12 General: Alert, Oriented x3, Cooperative, No apparent distress, Well developed, Well nourished HEENT: Atraumatic, PERRLA, EOMI, Normocephalic Oral: Moist Mucosa Neck: No JVD Lungs: Normal air movement Abdomen: Non-Distended Extremities: No clubbing, No cyanosis, No edema, No Calf Tenderness - The patient's right above-knee amputation stump is well-healed. The ulceration on the right groin is little changed from that noted at her previous visit. There is evidence of epithelialization both superiorly and inferiorly. Centrally, however, the ulcer persists. Dimensions are documented elsewhere. There is no sign of infection or cellulitis. There is a moderate amount of bioburden. Skin: No rashes Wound Measurements and Assessment WC - Nurse 1 - General Ulcer Measurement Start: 07/17/18 08:12 Freq: Status: Active Protocol: Activity Type Activity Date Activity User E-Sign Co-Sign Detail Recorded Client Recorded Date Recorded By Document 07/17/18 08:12 [id number] 07/17/18 08:16 07/17/18 08:12 Wound Center Nurse 1 [Ulcer Assessment] #5 R Groin -Combined with other wound No -Current Size (cm) - Length 3.3 -Current Size (cm) - Width 0.9 -Current Size (cm) - Depth 0.7 -Total Square Cm 2.97 -Photo Taken No -Epithelialization None Present -Tunneling No -Undermining/Tunneling No -Circular Undermining No -Wound Margin Thickened -Granulation Amt Medium (34-66%) -Granulation Quality Pale [place] -Slough/Fibrin Yes -Necrosis Amt Small (1-33%) -Necrotic Tissue Type Adherent Slough -Texture (Blanche-wound Skin Appearance) Scarring -Moisture (Blanche-wound Skin Appearance No Abnormality ) Assessed -Color (Blanche-wound Skin Appearance) No Abnormality Assessed -Temperature (Blanche-wound Skin No Abnormality Appearance) (Pt Warm) -Tenderness on Palpation (Blanche-wound No Skin Appearance) -Ulcer Cleansing Rinsed/ Irrigated with Saline -Foul Odor after Cleansing No -Anesthetic Used 5% Lidocaine Gel [Edema Assessment] -Lower Limb Edema Present NA Musculoskeletal: No Muscle Wasting Neurological: Cranial nerves II-XII grossly intact, Neuro grossly intact Psych/Mental Status: Normal Affect, Appropriate, Alert and oriented to time, place, person, mood and affect Debridement Note Laterality: Right - Groin Type of Debridement: Excisional debridement Anesthesia Used: 5% Lidocaine Gel Depth: Down to and including healthy tissue, in the subcutaneous layer Percentage of wound debrided: 100 Instrument Used: 3mm curette Severity: Fat Layer Exposed Amount of bleeding with debridement: Mild Bleeding Controlled with: Compression and gauze Patient tolerated procedure well Assessment/Plan Active Problems History of melanoma (Chronic) Ulcer of right groin (Chronic) Amputee, 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 In the 1970's, she was diagnosed with malignant melanoma of the right calf, with metastasis to lymph nodes in the right groin. She underwent excision of the melanoma with right groin lymphadenectomy. She was subsequently treated with a long series of radiation treatments to the right groin. During the days of her radiation treatment, it is suspected that the radiation techniques were somewhat early in their evolution, and quite likely that the patient received massive doses of radiation exposure, exceeding doses which would be considered appropriate today, with techniques which are primitive by today's standards. As result, the patient has developed soft tissue radiation injury, and has previously been treated at our wound center in the past with a series of approximately 90 hyperbaric oxygen therapy treatments, in 2011. She presented with recurrence of soft tissue radionecrosis in the right groin. Hyperbaric oxygen therapy treatments were initiated, and the patient has undergone a series of 90 hyperbaric oxygen treatment sessions. She has shown mild benefit from the hyperbaric oxygen treatments. At this time, there is no clinical evidence of infection or cellulitis in the blanche-ulcer area. However, the patient is responding very slowly to the variety of conventional treatment measures which have been implemented. In review of the patient's past history, such has been the case previously, as each treatment course has been rather protracted and lengthy in nature to achieve ultimate healing. The patient was seen and evaluated in consultation at [facility] recently (Dr. Harding), which had been arranged by our facility. We have now received medical records related to the patient's recent visit at [facility]. Judging from the impression at the conclusion of her consultation, no significant new recommendations have been made. Patient has been advised to keep the wound area clean and dry, and to change the Mary dressing daily. She was educated in the appropriate diet. Culture results from June 05, 2018, revealed rare growth of Staphylococcus aureus and Corynebacterium striatum. There was also an anaerobic cocci. However, given that we have seen progress in ulcer healing, and there is no obvious sign of infection, we are to forego prescribing an antibiotic at this time. It is likely that the organisms isolated represent normal skin mare in this area. Plan: The patient has been the recipient of 10 EpiFix applications. We are to continue the use of Silver Fanta, which will be applied once daily or every other day. No new recommendations of significance were elucidated recently by the wound care facility at [facility]. The patient will return in 1 week for reassessment. The patient is to continue with a nutritious diet. Biopsies of the ulceration have been obtained, and the results are negative for malignancy. Consideration had been given to the use of a skin graft substitute, Grafix Core, but was denied by the patient's insurance. Influenza vaccine was not administered today. The patient is not a smoker. She stands 5 feet 7 inches tall. She weighs 198 pounds. Her BMI is 31, which places her in a class I weight category. Weight loss has been recommended. She is to collaborate with her primary care physician in this regard.
[2018-07-24 08:38] VITALS: BP 135/91; PULSE 90; RESP 16; TEMP 35.5; BMI 68.3
--- NOTE | 2018-07-24 09:02 | HP.PCM_ITS ---
(1) History of uterine cancer Status: Chronic Current Visit: No Code(s): Z85.42 - Personal history of malignant neoplasm of other parts of uterus (2) History of melanoma Status: Chronic Current Visit: Yes Code(s): Z85.820 - Personal history of malignant melanoma of skin (3) Hyperlipidemia Status: Chronic Current Visit: No Code(s): E78.5 - Hyperlipidemia, unspecified (4) GERD (gastroesophageal reflux disease) Status: Chronic Current Visit: No Code(s): K21.9 - Gastro-esophageal reflux disease without esophagitis (5) Ulcer of right groin Status: Chronic Current Visit: Yes Qualifiers: Non-pressure ulcer stage: with fat layer exposed Code(s): L98.499 - Non-pressure chronic ulcer of skin of other sites with unspecified severity (6) Obesity (BMI 30.0-34.9) Status: Chronic Current Visit: No Code(s): E66.9 - Obesity, unspecified (7) Amputee, above knee Status: Chronic Current Visit: Yes Qualifiers: Laterality: right Code(s): Z89.619 - Acquired absence of unspecified leg above knee (8) Soft tissue radionecrosis Status: Chronic Current Visit: Yes Code(s): L59.8 - Other specified disorders of the skin and subcutaneous tissue related to radiation; Y84.2 - Radiological procedure and radiotherapy as the cause of abnormal reaction of the patient, or of later complication, without mention of misadventure at the time of the procedure (9) soft tissue radiation injury Status: Chronic Current Visit: Yes History of Present Illness Chief Complaint: 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 The patient underwent excision of her melanoma with lymphadenect sharmaine in the right groin. She also underwent lengthy radiation treatments at the [facility] in [place], [place]. Melanoma recurred, and the patient was subsequently treated with monoclonal antibodies in 1984. 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 Treatment included local ulcer care and hyperbaric oxygen therapy. She underwent a total of nearly 90 treatments of hyperbaric oxygen therapy. It is known that she tolerated the therapies well, and derived significant benefit. She relates no history of claustrophobia, or other complications related to the hyperbaric oxygen therapy treatments. She has no history of barotrauma to lungs, ears, etc. Her medical history has been reviewed, without any evidence of contraindications to hyperbaric oxygen therapy. Hyperbaric oxygen therapy has been administered for nearly 90 treatment sessions. We are currently using EpiFix allografts, and she has undergone 8 applications thus far. The patient's history suggests that the right groin wound in the past responded to hyperbaric oxygen therapy, but required 90 such sessions. It appears as though the patient's current clinical course is mimicking that of the past, with wound healing which is very recalcitrant to conventional treatment measures. 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 She is undergone excision of melanoma from the right calf, with lymphadenectomy of the right groin in the 1969's. She subsequently required surgeries of the right thigh related to osteomyelitis, MRSA infection, and radiation injury to the right femoral artery. Ultimately, the patient required right above-knee amputation, performed in 2000. She also has a remote history of open reduction and internal fixation of a right ankle fracture. Allergies/Adverse Reactions: Allergies No Known Allergies Allergy (Verified 06/20/17 09:22) Home Medications: Ambulatory Orders Medication Instructions Recorded Famotidine 20 mg PO 06/20/17 Pravastatin [Pravachol] 20 mg PO DAILY 06/20/17 - Family History Maternal - - The patient's mother is 98 years of age and relatively healthy. The patient's father at age of 79 with a history of cardiomyopathy. Smoking Status: Former smoker Tobacco Use: Non-smoker Review of Systems Constitutional: Denies: Chills, Fever, Weight Change Eyes: Denies: Pain, Vision Change HEENT: Denies: Difficulty Hearing, Difficulty Swallowing, Sinus Congestion Cardiovascular: Denies: Chest Pain, Palpitations Respiratory: Denies: Cough, Shortness of Breath Gastrointestinal: Denies: Diarrhea, Nausea, Vomiting Genitourinary: Denies: Dysuria, Hematuria Endocrine: Denies: Heat/ Cold Intolerance, Polydipsia, Polyuria Hematologic/ Lymphatic: Denies: Easy Bruising, Easy Bleeding - Physical Exam Vital Signs Temp Pulse Resp BP 96 F L 90 16 135/91 H 07/24/18 08:38 07/24/18 08:38 07/24/18 08:38 07/24/18 08:38 General: Alert, Oriented x3, Cooperative, No apparent distress, Well developed, Well nourished HEENT: Atraumatic, PERRLA, EOMI, Normocephalic Oral: Moist Mucosa Neck: No JVD Lungs: Normal air movement Abdomen: Non-Distended Extremities: No clubbing, No cyanosis, No edema, No Calf Tenderness, - - A well- healed right lower extremity amputation stump is noted. The ulceration of the right groin is little change in size or appearance. There is no significant erythema or apparent cellulitis. Dimensions are documented elsewhere. There is a moderate amount of bioburden. There appears to be epithelialization both superiorly and inferiorly. Centrally, there is a large opening, the dimensions of which are documented elsewhere within this record. Wound Measurements and Assessment WC - Nurse 1 - General Ulcer Measurement Start: 07/17/18 08:12 Freq: Status: Active Protocol: Activity Type Activity Date Activity User E-Sign Co-Sign Detail Recorded Client Recorded Date Recorded By Document 07/24/18 08:38 AN [id number] 07/24/18 08:42 AN 07/24/18 08:38 Wound Center Nurse 1 [Ulcer Assessment] #5 R Groin -Current Size (cm) - Length 3 -Current Size (cm) - Width 0.9 -Current Size (cm) - Depth 1 -Total Square Cm 2.7 -Photo Taken No -Epithelialization None Present -Tunneling No -Undermining/Tunneling No -Circular Undermining No -Classification - Thickness Full Thickness without Exposed Support Structure -Exudate Amt Small -Exudate Type Serosanguineous -Wound Margin Distinct, Outline Attached -Granulation Amt Medium (34-66%) -Granulation Quality Red -Necrosis Amt Medium (34-66%) -Necrotic Tissue Type Adherent Slough -Texture (Blanche-wound Skin Appearance) No Abnormality -Moisture (Blanche-wound Skin Appearance No Abnormality ) -Color (Blanche-wound Skin Appearance) No Abnormality -Temperature (Blanche-wound Skin No Abnormality Appearance) (Pt Warm) -Tenderness on Palpation (Blanche-wound No Skin Appearance) -Ulcer Cleansing Rinsed/ Irrigated with Saline -Foul Odor after Cleansing No -Anesthetic Used 5% Lidocaine Gel Musculoskeletal: No Muscle Wasting Neurological: Cranial nerves II-XII grossly intact, Neuro grossly intact Psych/Mental Status: Normal Affect, Appropriate, Alert and oriented to time, place, person, mood and affect Debridement Note Post-Debridement Measurements/Treatment WC - Nurse 2 - General Ulcer CM Notes Start: 07/17/18 08:12 Freq: Status: Active Protocol: Activity Type Activity Date Activity User E-Sign Co-Sign Detail Recorded Client Recorded Date Recorded By Document 07/17/18 08:56 DV [id number] 07/17/18 08:58 DV 07/17/18 08:56 Wound Center Nurse 2 #5 R Groin -Time 08:58 -Correct Patient Yes -Correct Side, Site, Position Yes -Correct Procedure Yes -Procedure Performed Yes -Type of Procedure Debridement -Clinical Debridement Subcutaneous -Post Debridement Size (cm) - Length 0.9 -Post Debridement Size (cm) - Width 0.9 -Post Debridement Size (cm) - Depth 0.7 -Total Square Cm 0.81 -Wound/Ulcer Outcome Not Healed -Ulcer Cleansing Rinsed/ Irrigated with Saline -Foul Odor after Cleansing No -Bioengineered Tissue No -Bleeding Controlled with Pressure -Offloading No -Treatment Response Procedure Tolerated Well Pain Scale: 0-10 Numeric Is Patient Pain Free? Yes - Nurse 2 - General Ulcer CM Notes Start: 07/17/18 08:55 Freq: Status: Active Protocol: Activity Type Activity Date Activity User E-Sign Co-Sign Detail Recorded Client Recorded Date Recorded By Document 07/17/18 08:56 DV [id number] 07/17/18 08:58 DV Laterality: Right - Groin Type of Debridement: Excisional debridement Anesthesia Used: 5% Lidocaine Gel Depth: Down to and including healthy tissue, in the subcutaneous layer Percentage of wound debrided: 100 Instrument Used: 5mm curette Severity: Fat Layer Exposed Amount of bleeding with debridement: Mild Bleeding Controlled with: Compression and gauze Patient tolerated procedure well Despite a rather aggressive debridement using a sterile 5 mm curette, very little bleeding was encountered, suggesting perhaps that ulcerated site is relatively devoid of arterial vascularity. Swab cultures were obtained for both aerobic and anaerobic growth. 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 In the 1970's, she was diagnosed with malignant melanoma of the right calf, with metastasis to lymph nodes in the right groin. She underwent excision of the melanoma with right groin lymphadenectomy. She was subsequently treated with a long series of radiation treatments to the right groin. During the days of her radiation treatment, it is suspected that the radiation techniques were somewhat early in their evolution, and quite likely that the patient received massive doses of radiation exposure, exceeding doses which would be considered appropriate today, with tech niques which are primitive by today's standards. As result, the patient has developed soft tissue radiation injury, and has previously been treated at our wound center in the past with a series of approximately 90 hyperbaric oxygen therapy treatments, in 2011. She presented with recurrence of soft tissue radionecrosis in the right groin. Hyperbaric oxygen therapy treatments were initiated, and the patient has undergone a series of 90 hyperbaric oxygen treatment sessions. She has shown mild benefit from the hyperbaric oxygen treatments. At this time, there is no clinical evidence of infection or cellulitis in the blanche-ulcer area. However, the patient is responding very slowly to the variety of conventional treatment measures which have been implemented. In review of the patient's past history, such has been the case previously, as each treatment course has been rather protracted and lengthy in nature to achieve ultimate healing. The patient was seen and evaluated in consultation at [facility] recently (Dr. Harding), which had been arranged by our facility. We have now received medical records related to the patient's recent visit at [facility]. Judging from the impression at the conclusion of her consultation, no significant new recommendations have been made. Patient has been advised to keep the wound area clean and dry, and to change the Mary dressing daily. She was educated in the appropriate diet. Culture results from June 05, 2018, revealed rare growth of Staphylococcus aureus and Corynebacterium striatum. There was also an anaerobic cocci. However, given that we have seen progress in ulcer healing, and there is no obvious sign of infection, we are to forego prescribing an antibiotic at this time. It is likely that the organisms isolated represent normal skin mare in this area. However, since some time has elapsed, and healing has occurred at a slower pace than expected, swab cultures were obtained today, for both aerobic and anaerobic growth. Plan: The patient has been the recipient of 10 EpiFix applications. We are to continue the use of Silver Fanta, which will be applied once daily or every other day. No new recommendations of significance were elucidated recently by the wound care facility at [facility]. The patient will return in 1 week for reassessment. The patient is to continue with a nutritious diet. Biopsies of the ulceration have been obtained, and the results are negative for malignancy. Consideration had been given to the use of a skin graft substitute, Grafix Core, but was denied by the patient's insurance. We will await the results of aerobic and anaerobic swab cultures, obtained today. Influenza vaccine was not administered today. The patient is not a smoker. She stands 5 feet 7 inches tall. She weighs 198 pounds. Her BMI is 31, which places her in a class I weight category. Weight loss has been recommended. She is to collaborate with her primary care physician in this regard.
[2018-07-31 08:43] VITALS: BP 150/77; PULSE 84; RESP 16; TEMP 35.3; BMI 68.3
--- NOTE | 2018-07-31 09:32 | PCM.WC.HP ---
(1) History of uterine cancer Status: Chronic Current Visit: No Code(s): Z85.42 - Personal history of malignant neoplasm of other parts of uterus (2) History of melanoma Status: Chronic Current Visit: Yes Code(s): Z85.820 - Personal history of malignant melanoma of skin (3) Hyperlipidemia Status: Chronic Current Visit: No Code(s): E78.5 - Hyperlipidemia, unspecified (4) GERD (gastroesophageal reflux disease) Status: Chronic Current Visit: No Code(s): K21.9 - Gastro-esophageal reflux disease without esophagitis (5) Ulcer of right groin Status: Chronic Current Visit: Yes Qualifiers: Non-pressure ulcer stage: with fat layer exposed Code(s): L98.499 - Non-pressure chronic ulcer of skin of other sites with unspecified severity (6) Obesity (BMI 30.0-34.9) Status: Chronic Current Visit: No Code(s): E66.9 - Obesity, unspecified (7) Amputee, above knee Status: Chronic Current Visit: Yes Qualifiers: Laterality: right Code(s): Z89.619 - Acquired absence of unspecified leg above knee (8) Soft tissue radionecrosis Status: Chronic Current Visit: Yes Code(s): L59.8 - Other specified disorders of the skin and subcutaneous tissue related to radiation; Y84.2 - Radiological procedure and radiotherapy as the cause of abnormal reaction of the patient, or of later complication, without mention of misadventure at the time of the procedure (9) soft tissue radiation injury Status: Chronic Current Visit: Yes History of Present Illness Chief Complaint: 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 The patient underwent excision of her melanoma with lymphadenectomy in the right groin. She also underwent lengthy radiation treatments at the [facility] in [place], [place]. Melanoma recurred, and the patient was subsequently treated with monoclonal antibodies in 1984. 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 In 2012, the patient was treated in our wound center for ulcerations of the right upper thigh and groin related to soft tissue radiation necrosis. Treatment included local ulcer care and hyperbaric oxygen therapy. She underwent a total of nearly 90 treatments of hyperbaric oxygen therapy. It is known that she tolerated the therapies well, and derived significant benefit. She relates no history of claustrophobia, or other complications related to the hyperbaric oxygen therapy treatments. She has no history of barotrauma to lungs, ears, etc. Her medical history has been reviewed, without any evidence of contraindications to hyperbaric oxygen therapy. Hyperbaric oxygen therapy has been administered for nearly 90 treatment sessions. We are currently using EpiFix allografts, and she has undergone 8 applications thus far. The patient's history suggests that the right groin wound in the past responded to hyperbaric oxygen therapy, but required 90 such sessions. It appears as though the patient's current clinical course is mimicking that of the past, with wound healing which is very recalcitrant to conventional treatment measures. 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 She is undergone excision of melanoma from the right calf, with lymphadenectomy of the right groin in the 1969's. She subsequently required surgeries of the right thigh related to osteomyelitis, MRSA infection, and radiation injury to the right femoral artery. Ultimately, the patient required right above-knee amputation, performed in 2000. She also has a remote history of open reduction and internal fixation of a right ankle fracture. Allergies/Adverse Reactions: Allergies No Known Allergies Allergy (Verified 06/20/17 09:22) Home Medications: Ambulatory Orders Medication Instructions Recorded Famotidine 20 mg PO 06/20/17 Pravastatin [Pravachol] 20 mg PO DAILY 06/20/17 - Family History Maternal - - The patient's mother is 98 years of age and relatively healthy. The patient's father at age of 79 with a history of cardiomyopathy. Smoking Status: Former smoker Tobacco Use: Non-smoker Review of Systems Constitutional: Denies: Chills, Fever, Weight Change Eyes: Denies: Pain, Vision Change HEENT: Denies: Difficulty Hearing, Difficulty Swallowing, Sinus Congestion Cardiovascular: Denies: Chest Pain, Palpitations Respiratory: Denies: Cough, Shortness of Breath Gastrointestinal: Denies: Diarrhea, Nausea, Vomiting Genitourinary: Denies: Dysuria, Hematuria Endocrine: Denies: Heat/ Cold Intolerance, Polydipsia, Polyuria Hematologic/ Lymphatic: Denies: Easy Bruising, Easy Bleeding - Physical Exam Vital Signs Temp Pulse Resp BP 95.5 F L 84 16 150/77 H 07/31/18 08:43 07/31/18 08:43 07/31/18 08:43 07/31/18 08:43 General: Alert, Oriented x3, Cooperative, No apparent distress, Well developed, Well nourished HEENT: Atraumatic, PERRLA, EOMI, Normocephalic Oral: Moist Mucosa Neck: No JVD Lungs: Normal air movement Abdomen: Non-Distended Extremities: No clubbing, No cyanosis, No edema, No Calf Tenderness, - - The ulceration in the right groin persists. There is evidence of epithelialization superiorly and inferiorly relative to her ulceration. However, centrally, there is a defect, with margins which are not well beveled. There is slight undermining laterally. There is no sign of infection or cellulitis. In fact, recent culture results are negative. Dimensions are documented elsewhere. Skin: No rashes Wound Measurements and Assessment WC - Nurse 1 - General Ulcer Measurement Start: 07/17/18 08:12 Freq: Status: Active Protocol: Activity Type Activity Date Activity User E-Sign Co-Sign Detail Recorded Client Recorded Date Recorded By Document 07/31/18 08:43 AN [id number] 07/31/18 08:57 AN 07/31/18 08:43 Wound Center Nurse 1 [Ulcer Assessment] #5 R Groin -Combined with other wound No -Current Size (cm) - Length 0.9 -Current Size (cm) - Width 2.8 -Current Size (cm) - Depth 0.9 -Total Square Cm 2.52 -Photo Taken No -Epithelialization None Present -Tunneling No -Undermining/Tunneling No -Circular Undermining No -Classification - Thickness Full Thickness without Exposed Support Structure -Exudate Amt Small -Exudate Type Serosanguineous -Wound Margin Distinct, Outline Attached -Granulation Amt Large (67-100%) -Granulation Quality Pale [place] -Necrosis Amt Small (1-33%) -Necrotic Tissue Type Adherent Slough -Structure Exposed Fat Layer Exposed -Texture (Daniel-wound Skin Appearance) Assessed -Moisture (Daniel-wound Skin Appearance Assessed ) -Color (Daniel-wound Skin Appearance) Assessed -Temperature (Daniel-wound Skin No Abnormality Appearance) (Pt Warm) -Tenderness on Palpation (Daniel-wound No Skin Appearance) -Ulcer Cleansing Rinsed/ Irrigated with Saline -Foul Odor after Cleansing No -Anesthetic Used 4% Lidocaine Solution WC - Nurse 2 - General Ulcer CM Notes Start: 07/17/18 08:12 Freq: Status: Active Protocol: Activity Type Activity Date Activity User E-Sign Co-Sign Detail Recorded Client Recorded Date Recorded By Document 07/31/18 09:23 DV [id number] 07/31/18 09:26 DV 07/31/18 09:23 Wound Center Nurse 2 [Procedure/Treatment] -Time 09:24 -Correct Patient Yes -Correct Side, Site, Position Yes -Correct Procedure Yes -Procedure Performed Yes -Type of Procedure Debridement -Clinical Debridement Subcutaneous -Post Debridement Size (cm) - Length 2.2 -Post Debridement Size (cm) - Width 0.9 -Post Debridement Size (cm) - Depth 1.3 -Total Square Cm 1.98 -Wound/Ulcer Outcome Not Healed -Ulcer Cleansing Rinsed/ Irrigated with Saline -Foul Odor after Cleansing No -Bioengineered Tissue No -Bleeding Controlled with Pressure -Offloading No -Treatment Response Procedure Tolerated Well [See Physician Procedure note for Specifics] Pain Scale: 0-10 Numeric [Pain] -Is Patient Pain Free? Yes KISHA - Nurse 2 - General Ulcer CM Notes Start: 07/17/18 08:55 Freq: Status: Active Protocol: Activity Type Activity Date Activity User E-Sign Co-Sign Detail Recorded Client Recorded Date Recorded By Document 07/31/18 09:23 DV [id number] 07/31/18 09:26 DV Musculoskeletal: No Muscle Wasting Neurological: Cranial nerves II-XII grossly intact, Neuro grossly intact Psych/Mental Status: Normal Affect, Appropriate, Alert and oriented to time, place, person, mood and affect Debridement Note Post-Debridement Measurements/Treatment WC - Nurse 2 - General Ulcer CM Notes Start: 07/17/18 08:12 Freq: Status: Active Protocol: Activity Type Activity Date Activity User E-Sign Co-Sign Detail Recorded Client Recorded Date Recorded By Document 07/17/18 08:56 DV [id number] 07/17/18 08:58 DV Document 07/24/18 08:56 DV [id number] 07/24/18 08:58 DV Document 07/31/18 09:23 DV [id number] 07/31/18 09:26 DV 07/17/18 07/24/18 07/31/18 08:56 08:56 09:23 Wound Center Nurse 2 #5 R Groin -Time 08:58 08:56 09:24 -Correct Patient Yes Yes Yes -Correct Side, Site, Position Yes Yes Yes -Correct Procedure Yes Yes Yes -Procedure Performed Yes Yes Yes -Type of Procedure Debridement Debridement Debridement -Clinical Debridement Subcutaneous Subcutaneous Subcutaneous -Post Debridement Size (cm) - Length 0.9 1.0 2.2 -Post Debridement Size (cm) - Width 0.9 0.9 0.9 -Post Debridement Size (cm) - Depth 0.7 1.0 1.3 -Total Square Cm 0.81 0.90 1.98 -Wound/Ulcer Outcome Not Healed Not Healed Not Healed -Ulcer Cleansing Rinsed/ Rinsed/ Rinsed/ Irrigated with Irrigated with Irrigated with Saline Saline Saline -Foul Odor after Cleansing No No No -Bioengineered Tissue No No No -Bleeding Controlled with Pressure NA Pressure Pressure -Offloading No No No -Treatment Response Procedure Procedure Procedure Tolerated Well Tolerated Well Tolerated Well Pain Scale: 0-10 Numeric Is Patient Pain Free? Yes Yes Yes - Nurse 2 - General Ulcer CM Notes Start: 07/17/18 08:55 Freq: Status: Active Protocol: Activity Type Activity Date Activity User E-Sign Co-Sign Detail Recorded Client Recorded Date Recorded By Document 07/17/18 08:56 DV [id number] 07/17/18 08:58 DV Document 07/31/18 09:23 DV [id number] 07/31/18 09:26 DV Laterality: Right - Groin Type of Debridement: Excisional debridement Anesthesia Used: 5% Lidocaine Gel Depth: Down to and including healthy tissue, in the subcutaneous layer Percentage of wound debrided: 100 Instrument Used: 3mm curette Severity: Fat Layer Exposed Amount of bleeding with debridement: Mild Bleeding Controlled with: Compression and gauze Patient tolerated procedure well Assessment/Plan Active Problems History of melanoma (Chronic) Ulcer of right groin (Chronic) Amputee, 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 In the 1970's, she was diagnosed with malignant melanoma of the right calf, with metastasis to lymph nodes in the right groin. She underwent excision of the melanoma with right groin lymphadenectomy. She was subsequently treated with a long series of radiation treatments to the right groin. During the days of her radiation treatment, it is suspected that the radiation techniques were somewhat early in their evolution, and quite likely that the patient received massive doses of radiation exposure, exceeding doses which would be considered appropriate today, with techniques which are primitive by today's standards. As result, the patient has developed soft tissue radiation injury, and has previously been treated at our wound center in the past with a series of approximately 90 hyperbaric oxygen therapy treatments, in 2011. She presented with recurrence of soft tissue radionecrosis in the right groin. Hyperbaric oxygen therapy treatments were initiated, and the patient has undergone a series of 90 hyperbaric oxygen treatment sessions. She has shown mild benefit from the hyperbaric oxygen treatments. At this time, there is no clinical evidence of infection or cellulitis in the daniel-ulcer area. However, the patient is responding very slowly to the variety of conventional treatment measures which have been implemented. In review of the patient's past history, such has been the case previously, as each treatment course has been rather protracted and lengthy in nature to achieve ultimate healing. The patient was seen and evaluated in consultation at [facility] recently (Dr. Harding), which had been arranged by our facility. We have received medical records related to the patient's recent visit at [facility]. Judging from the impression at the conclusion of her consultation, no significant new recommendations have been made. Patient has been advised to keep the wound area clean and dry, and to change the Mary dressing daily. She was educated in the appropriate diet. Recent culture results were negative. Plan: The patient has been the recipient of 10 EpiFix applications. We are to transition to the use of Mary, which will be applied topically every other day. No new recommendations of significance were elucidated recently by the wound care facility at [facility]. The patient will return in 1 week for reassessment. The patient is to continue with a nutritious diet. Biopsies of the ulceration have been obtained, and the results are negative for malignancy. Consideration had been given to the use of a skin graft substitute, Grafix Prime, but was denied by the patient's insurance. We will attempt to seek approval once again for skin graft substitute. In addition, it may be of benefit to seek consultation once again at [facility], as the patient has shown very little progress in terms of healing, despite what appear to be appropriate measures to this point. A more aggressive approach which might include surgical excision/debridement appears ill-advised, given the patient's history of extensive radiation to this area, and anticipation that healing will likely be impaired as a result. Several plastic surgery consultations in the past have culminated in a declination for aggressive debridement. Influenza vaccine was not administered today. The patient is not a smoker. She stands 5 feet 7 inches tall. She weighs 198 pounds. Her BMI is 31, which places her in a class I weight category. Weight loss has been recommended. She is to collaborate with her primary care physician in this regard.
--- NOTE | 2018-07-31 09:39 | HP.PCM_ITS ---
(1) History of uterine cancer Status: Chronic Current Visit: No Code(s): Z85.42 - Personal history of malignant neoplasm of other parts of uterus (2) History of melanoma Status: Chronic Current Visit: Yes Code(s): Z85.820 - Personal history of malignant melanoma of skin (3) Hyperlipidemia Status: Chronic Current Visit: No Code(s): E78.5 - Hyperlipidemia, unspecified (4) GERD (gastroesophageal reflux disease) Status: Chronic Current Visit: No Code(s): K21.9 - Gastro-esophageal reflux disease without esophagitis (5) Ulcer of right groin Status: Chronic Current Visit: Yes Qualifiers: Non-pressure ulcer stage: with fat layer exposed Code(s): L98.499 - Non-pressure chronic ulcer of skin of other sites with unspecified severity (6) Obesity (BMI 30.0-34.9) Status: Chronic Current Visit: No Code(s): E66.9 - Obesity, unspecified (7) Amputee, above knee Status: Chronic Current Visit: Yes Qualifiers: Laterality: right Code(s): Z89.619 - Acquired absence of unspecified leg above knee (8) Soft tissue radionecrosis Status: Chronic Current Visit: Yes Code(s): L59.8 - Other specified disorders of the skin and subcutaneous tissue related to radiation; Y84.2 - Radiological procedure and radiotherapy as the cause of abnormal reaction of the patient, or of later complication, without mention of misadventure at the time of the procedure (9) soft tissue radiation injury Status: Chronic Current Visit: Yes History of Present Illness Chief Complaint: 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 The patient underwent excision of her melanoma with lymphadenect sharmaine in the right groin. She also underwent lengthy radiation treatments at the [facility] in [place], [place]. Melanoma recurred, and the patient was subsequently treated with monoclonal antibodies in 1984. 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 Treatment included local ulcer care and hyperbaric oxygen therapy. She underwent a total of nearly 90 treatments of hyperbaric oxygen therapy. It is known that she tolerated the therapies well, and derived significant benefit. She relates no history of claustrophobia, or other complications related to the hyperbaric oxygen therapy treatments. She has no history of barotrauma to lungs, ears, etc. Her medical history has been reviewed, without any evidence of contraindications to hyperbaric oxygen therapy. Hyperbaric oxygen therapy has been administered for nearly 90 treatment sessions. We are currently using EpiFix allografts, and she has undergone 8 applications thus far. The patient's history suggests that the right groin wound in the past responded to hyperbaric oxygen therapy, but required 90 such sessions. It appears as though the patient's current clinical course is mimicking that of the past, with wound healing which is very recalcitrant to conventional treatment measures. 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 She is undergone excision of melanoma from the right calf, with lymphadenectomy of the right groin in the 1969's. She subsequently required surgeries of the right thigh related to osteomyelitis, MRSA infection, and radiation injury to the right femoral artery. Ultimately, the patient required right above-knee amputation, performed in 2000. She also has a remote history of open reduction and internal fixation of a right ankle fracture. Allergies/Adverse Reactions: Allergies No Known Allergies Allergy (Verified 06/20/17 09:22) Home Medications: Ambulatory Orders Medication Instructions Recorded Famotidine 20 mg PO 06/20/17 Pravastatin [Pravachol] 20 mg PO DAILY 06/20/17 - Family History Maternal - - The patient's mother is 98 years of age and relatively healthy. The patient's father at age of 79 with a history of cardiomyopathy. Smoking Status: Former smoker Tobacco Use: Non-smoker Review of Systems Constitutional: Denies: Chills, Fever, Weight Change Eyes: Denies: Pain, Vision Change HEENT: Denies: Difficulty Hearing, Difficulty Swallowing, Sinus Congestion Cardiovascular: Denies: Chest Pain, Palpitations Respiratory: Denies: Cough, Shortness of Breath Gastrointestinal: Denies: Diarrhea, Nausea, Vomiting Genitourinary: Denies: Dysuria, Hematuria Endocrine: Denies: Heat/ Cold Intolerance, Polydipsia, Polyuria Hematologic/ Lymphatic: Denies: Easy Bruising, Easy Bleeding - Physical Exam Vital Signs Temp Pulse Resp BP 95.5 F L 84 16 150/77 H 07/31/18 08:43 07/31/18 08:43 07/31/18 08:43 07/31/18 08:43 General: Alert, Oriented x3, Cooperative, No apparent distress, Well developed, Well nourished HEENT: Atraumatic, PERRLA, EOMI, Normocephalic Oral: Moist Mucosa Neck: No JVD Lungs: Normal air movement Abdomen: Non-Distended Extremities: No clubbing, No cyanosis, No edema, No Calf Tenderness, - - The ulceration in the right groin persists. There is evidence of epithelialization superiorly and inferiorly relative to her ulceration. However, centrally, there is a defect, with margins which are not well beveled. There is slight undermining laterally. There is no sign of infection or cellulitis. In fact, recent culture results are negative. Dimensions are documented elsewhere. Skin: No rashes Wound Measurements and Assessment WC - Nurse 1 - General Ulcer Measurement Start: 07/17/18 08:12 Freq: Status: Active Protocol: Activity Type Activity Date Activity User E-Sign Co-Sign Detail Recorded Client Recorded Date Recorded By Document 07/31/18 08:43 AN [id number] 07/31/18 08:57 AN 07/31/18 08:43 Wound Center Nurse 1 [Ulcer Assessment] #5 R Groin -Combined with other wound No -Current Size (cm) - Length 0.9 -Current Size (cm) - Width 2.8 -Current Size (cm) - Depth 0.9 -Total Square Cm 2.52 -Photo Taken No -Epithelialization None Present -Tunneling No -Undermining/Tunneling No -Circular Undermining No -Classification - Thickness Full Thickness without Exposed Support Structure -Exudate Amt Small -Exudate Type Serosanguineous -Wound Margin Distinct, Outline Attached -Granulation Amt Large (67-100%) -Granulation Quality Pale [place] -Necrosis Amt Small (1-33%) -Necrotic Tissue Type Adherent Slough -Structure Exposed Fat Layer Exposed -Texture (Daniel-wound Skin Appearance) Assessed -Moisture (Daniel-wound Skin Appearance Assessed ) -Color (Daniel-wound Skin Appearance) Assessed -Temperature (Daniel-wound Skin No Abnormality Appearance) (Pt Warm) -Tenderness on Palpation (Daniel-wound No Skin Appearance) -Ulcer Cleansing Rinsed/ Irrigated with Saline -Foul Odor after Cleansing No -Anesthetic Used 4% Lidocaine Solution - Nurse 2 - General Ulcer CM Notes Start: 07/17/18 08:12 Freq: Status: Active Protocol: Activity Type Activity Date Activity User E-Sign Co-Sign Detail Recorded Client Recorded Date Recorded By Document 07/31/18 09:23 DV [id number] 07/31/18 09:26 DV 07/31/18 09:23 Wound Center Nurse 2 [Procedure/Treatment] -Time 09:24 -Correct Patient Yes -Correct Side, Site, Position Yes -Correct Procedure Yes -Procedure Performed Yes -Type of Procedure Debridement -Clinical Debridement Subcutaneous -Post Debridement Size (cm) - Length 2.2 -Post Debridement Size (cm) - Width 0.9 -Post Debridement Size (cm) - Depth 1.3 -Total Square Cm 1.98 -Wound/Ulcer Outcome Not Healed -Ulcer Cleansing Rinsed/ Irrigated with Saline -Foul Odor after Cleansing No -Bioengineered Tissue No -Bleeding Controlled with Pressure -Offloading No -Treatment Response Procedure Tolerated Well [See Physician Procedure note for Specifics] Pain Scale: 0-10 Numeric [Pain] -Is Patient Pain Free? Yes - Nurse 2 - General Ulcer CM Notes Start: 07/17/18 08:55 Freq: Status: Active Protocol: Activity Type Activity Date Activity User E-Sign Co-Sign Detail Recorded Client Recorded Date Recorded By Document 07/31/18 09:23 DV [id number] 07/31/18 09:26 DV Musculoskeletal: No Muscle Wasting Neurological: Cranial nerves II-XII grossly intact, Neuro grossly intact Psych/Mental Status: Normal Affect, Appropriate, Alert and oriented to time, place, person, mood and affect Debridement Note Post-Debridement Measurements/Treatment WC - Nurse 2 - General Ulcer CM Notes Start: 07/17/18 08:12 Freq: Status: Active Protocol: Activity Type Activity Date Activity User E-Sign Co-Sign Detail Recorded Client Recorded Date Recorded By Document 07/17/18 08:56 DV [id number] 07/17/18 08:58 DV Document 07/24/18 08:56 DV [id number] 07/24/18 08:58 DV Document 07/31/18 09:23 DV [id number] 07/31/18 09:26 DV 07/17/18 07/24/18 07/31/18 08:56 08:56 09:23 Wound Center Nurse 2 #5 R Groin -Time 08:58 08:56 09:24 -Correct Patient Yes Yes Yes -Correct Side, Site, Position Yes Yes Yes -Correct Procedure Yes Yes Yes -Procedure Performed Yes Yes Yes -Type of Procedure Debridement Debridement Debridement -Clinical Debridement Subcutaneous Subcutaneous Subcutaneous -Post Debridement Size (cm) - Length 0.9 1.0 2.2 -Post Debridement Size (cm) - Width 0.9 0.9 0.9 -Post Debridement Size (cm) - Depth 0.7 1.0 1.3 -Total Square Cm 0.81 0.90 1.98 -Wound/Ulcer Outcome Not Healed Not Healed Not Healed -Ulcer Cleansing Rinsed/ Rinsed/ Rinsed/ Irrigated with Irrigated with Irrigated with Saline Saline Saline -Foul Odor after Cleansing No No No -Bioengineered Tissue No No No -Bleeding Controlled with Pressure NA Pressure Pressure -Offloading No No No -Treatment Response Procedure Procedure Procedure Tolerated Well Tolerated Well Tolerated Well Pain Scale: 0-10 Numeric Is Patient Pain Free? Yes Yes Yes - Nurse 2 - General Ulcer CM Notes Start: 07/17/18 08:55 Freq: Status: Active Protocol: Activity Type Activity Date Activity User E-Sign Co-Sign Detail Recorded Client Recorded Date Recorded By Document 07/17/18 08:56 DV [id number] 07/17/18 08:58 DV Document 07/31/18 09:23 DV [id number] 07/31/18 09:26 DV Laterality: Right - Groin Type of Debridement: Excisional debridement Anesthesia Used: 5% Lidocaine Gel Depth: Down to and including healthy tissue, in the subcutaneous layer Percentage of wound debrided: 100 Instrument Used: 3mm curette Severity: Fat Layer Exposed Amount of bleeding with debridement: Mild Bleeding Controlled with: Compression and gauze Patient tolerated procedure well Assessment/Plan Active Problems History of melanoma (Chronic) Ulcer of right groin (Chronic) Amputee, 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 In the 1970's, she was diagnosed with malignant melanoma of the right calf, with metastasis to lymph nodes in the right groin. She underwent excision of the melanoma with right groin lymphadenectomy. She was subsequently treated with a long series of radiation treatments to the right groin. During the days of her radiation treatment, it is suspected that the radiation techniques were somewhat early in their evol ution, and quite likely that the patient received massive doses of radiation exposure, exceeding doses which would be considered appropriate today, with techniques which are primitive by today's standards. As result, the patient has developed soft tissue radiation injury, and has previously been treated at our wound center in the past with a series of approximately 90 hyperbaric oxygen therapy treatments, in 2011. She presented with recurrence of soft tissue radionecrosis in the right groin. Hyperbaric oxygen therapy treatments were initiated, and the patient has undergone a series of 90 hyperbaric oxygen treatment sessions. She has shown mild benefit from the hyperbaric oxygen treatments. At this time, there is no clinical evidence of infection or cellulitis in the daniel-ulcer area. However, the patient is responding very slowly to the variety of conventional treatment measures which have been implemented. In review of the patient's past history, such has been the case previously, as each treatment course has been rather protracted and lengthy in nature to achieve ultimate healing. The patient was seen and evaluated in consultation at [facility] recently (Dr. Harding), which had been arranged by our facility. We have received medical records related to the patient's recent visit at [facility]. Judging from the impression at the conclusion of her consultation, no significant new recommendations have been made. Patient has been advised to keep the wound area clean and dry, and to change the Mary dressing daily. She was educated in the appropriate diet. Recent culture results were negative. Plan: The patient has been the recipient of 10 EpiFix applications. We are to transition to the use of Mary, which will be applied topically every other day. No new recommendations of significance were elucidated recently by the wound care facility at [facility]. The patient will return in 1 week for reassessment. The patient is to continue with a nutritious diet. Biopsies of the ulceration have been obtained, and the results are negative for malignancy. Consideration had been given to the use of a skin graft substitute, Grafix Prime, but was denied by the patient's insurance. We will attempt to seek approval once again for skin graft substitute. In ad dition, it may be of benefit to seek consultation once again at [facility], as the patient has shown very little progress in terms of healing, despite what appear to be appropriate measures to this point. A more aggressive approach which might include surgical excision/debridement appears ill-advised, given the patient's history of extensive radiation to this area, and anticipation that healing will likely be impaired as a result. Several plastic surgery consultations in the past have culminated in a declination for aggressive debridement. Influenza vaccine was not administered today. The patient is not a smoker. She stands 5 feet 7 inches tall. She weighs 198 pounds. Her BMI is 31, which places her in a class I weight category. Weight loss has been recommended. She is to collaborate with her primary care physician in this regard.
[2018-08-07 08:45] VITALS: BP 160/88; PULSE 78; RESP 16; TEMP 35.7; BMI 68.3
--- NOTE | 2018-08-07 09:07 | PCM.WC.HP ---
(1) History of uterine cancer Status: Chronic Current Visit: No Code(s): Z85.42 - Personal history of malignant neoplasm of other parts of uterus (2) History of melanoma Status: Chronic Current Visit: Yes Code(s): Z85.820 - Personal history of malignant melanoma of skin (3) Hyperlipidemia Status: Chronic Current Visit: No Code(s): E78.5 - Hyperlipidemia, unspecified (4) GERD (gastroesophageal reflux disease) Status: Chronic Current Visit: No Code(s): K21.9 - Gastro-esophageal reflux disease without esophagitis (5) Ulcer of right groin Status: Chronic Current Visit: Yes Qualifiers: Non-pressure ulcer stage: with fat layer exposed Code(s): L98.499 - Non-pressure chronic ulcer of skin of other sites with unspecified severity (6) Obesity (BMI 30.0-34.9) Status: Chronic Current Visit: No Code(s): E66.9 - Obesity, unspecified (7) Amputee, above knee Status: Chronic Current Visit: Yes Qualifiers: Laterality: right Code(s): Z89.619 - Acquired absence of unspecified leg above knee (8) Soft tissue radionecrosis Status: Chronic Current Visit: Yes Code(s): L59.8 - Other specified disorders of the skin and subcutaneous tissue related to radiation; Y84.2 - Radiological procedure and radiotherapy as the cause of abnormal reaction of the patient, or of later complication, without mention of misadventure at the time of the procedure (9) soft tissue radiation injury Status: Chronic Current Visit: Yes History of Present Illness Chief Complaint: 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 The patient underwent excision of her melanoma with lymphadenectomy in the right groin. She also underwent lengthy radiation treatments at the [facility] in [place], [place]. Melanoma recurred, and the patient was subsequently treated with monoclonal antibodies in 1984. 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 In 2012, the patient was treated in our wound center for ulcerations of the right upper thigh and groin related to soft tissue radiation necrosis. Treatment included local ulcer care and hyperbaric oxygen therapy. She underwent a total of nearly 90 treatments of hyperbaric oxygen therapy. It is known that she tolerated the therapies well, and derived significant benefit. She relates no history of claustrophobia, or other complications related to the hyperbaric oxygen therapy treatments. She has no history of barotrauma to lungs, ears, etc. Her medical history has been reviewed, without any evidence of contraindications to hyperbaric oxygen therapy. Hyperbaric oxygen therapy has been administered for nearly 90 treatment sessions. We are currently using EpiFix allografts, and she has undergone 8 applications thus far. The patient's history suggests that the right groin wound in the past responded to hyperbaric oxygen therapy, but required 90 such sessions. It appears as though the patient's current clinical course is mimicking that of the past, with wound healing which is very recalcitrant to conventional treatment measures. 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 She is undergone excision of melanoma from the right calf, with lymphadenectomy of the right groin in the 1969's. She subsequently required surgeries of the right thigh related to osteomyelitis, MRSA infection, and radiation injury to the right femoral artery. Ultimately, the patient required right above-knee amputation, performed in 2000. She also has a remote history of open reduction and internal fixation of a right ankle fracture. Allergies/Adverse Reactions: Allergies No Known Allergies Allergy (Verified 06/20/17 09:22) Home Medications: Ambulatory Orders Medication Instructions Recorded Famotidine 20 mg PO 06/20/17 Pravastatin [Pravachol] 20 mg PO DAILY 06/20/17 - Family History Maternal - - The patient's mother is 98 years of age and relatively healthy. The patient's father at age of 79 with a history of cardiomyopathy. Smoking Status: Former smoker Tobacco Use: Non-smoker Review of Systems Constitutional: Denies: Chills, Fever, Weight Change Eyes: Denies: Pain, Vision Change HEENT: Denies: Difficulty Hearing, Difficulty Swallowing, Sinus Congestion Cardiovascular: Denies: Chest Pain, Palpitations Respiratory: Denies: Cough, Shortness of Breath Gastrointestinal: Denies: Diarrhea, Nausea, Vomiting Genitourinary: Denies: Dysuria, Hematuria Endocrine: Denies: Heat/ Cold Intolerance, Polydipsia, Polyuria Hematologic/ Lymphatic: Denies: Easy Bruising, Easy Bleeding - Physical Exam Vital Signs Temp Pulse Resp BP 96.2 F L 78 16 160/88 H 08/07/18 08:45 08/07/18 08:45 08/07/18 08:45 08/07/18 08:45 General: Alert, Oriented x3, Cooperative, No apparent distress, Well developed, Well nourished HEENT: Atraumatic, PERRLA, EOMI, Normocephalic Oral: Moist Mucosa Neck: No JVD Lungs: Normal air movement Abdomen: Non-Distended Extremities: No clubbing, No cyanosis, No edema, No Calf Tenderness, - - A well-healed right above-knee imitation stump is noted. The patient's right groin ulceration is little changed in appearance. There is evidence of epithelialization superiorly and inferiorly. Centrally, however, there remains a defect, which extends into the subcutaneous tissues. There is a moderate amount of bioburden. There is no sign of infection or cellulitis. Dimensions are documented elsewhere. Skin: No rashes Wound Measurements and Assessment WC - Nurse 1 - General Ulcer Measurement Start: 07/17/18 08:12 Freq: Status: Active Protocol: Activity Type Activity Date Activity User E-Sign Co-Sign Detail Recorded Client Recorded Date Recorded By Document 08/07/18 08:45 MW [id number] 08/07/18 08:51 MW 08/07/18 08:45 Wound Center Nurse 1 [Ulcer Assessment] #5 R Groin -Combined with other wound No -Current Size (cm) - Length 3.0 -Current Size (cm) - Width 0.8 -Current Size (cm) - Depth 0.9 -Total Square Cm 2.40 -Photo Taken No -Epithelialization None Present -Tunneling No -Undermining/Tunneling No -Circular Undermining No -Exudate Amt Small -Exudate Type Serosanguineous -Wound Margin Distinct, Outline Attached -Granulation Amt None Present (0 %) -Granulation Quality N/A -Slough/Fibrin Yes -Necrosis Amt Large (67-100%) -Necrotic Tissue Type Adherent Slough -Structure Exposed Fat Layer Exposed -Texture (Daniel-wound Skin Appearance) Assessed Scarring -Moisture (Daniel-wound Skin Appearance No Abnormality ) Assessed -Color (Daniel-wound Skin Appearance) No Abnormality Assessed -Temperature (Daniel-wound Skin No Abnormality Appearance) (Pt Warm) -Tenderness on Palpation (Daniel-wound No Skin Appearance) -Ulcer Cleansing Rinsed/ Irrigated with Saline -Foul Odor after Cleansing No -Anesthetic Used 5% Lidocaine Gel [Edema Assessment] -Lower Limb Edema Present No WC - Nurse 2 - General Ulcer CM Notes Start: 07/17/18 08:12 Freq: Status: Active Protocol: Activity Type Activity Date Activity User E-Sign Co-Sign Detail Recorded Client Recorded Date Recorded By Document 08/07/18 08:52 MW [id number] 08/07/18 09:02 MW 08/07/18 08:52 Wound Center Nurse 2 [Procedure/Treatment] #5 R Groin -Time 08:52 -Correct Patient Yes -Correct Side, Site, Position Yes -Correct Procedure Yes -Procedure Performed Yes -Type of Procedure Debridement -Clinical Debridement Subcutaneous -Post Debridement Size (cm) - Length 1.5 -Post Debridement Size (cm) - Width 0.9 -Post Debridement Size (cm) - Depth 0.9 -Total Square Cm 1.35 -Wound/Ulcer Outcome Not Healed -Ulcer Cleansing Rinsed/ Irrigated with Saline -Foul Odor after Cleansing No -Bioengineered Tissue No -Bleeding Controlled with Pressure -Offloading No -Treatment Response Procedure Tolerated Well [See Physician Procedure note for Specifics] Pain Scale: 0-10 Numeric [Pain] -Is Patient Pain Free? Yes Musculoskeletal: No Muscle Wasting Neurological: Cranial nerves II-XII grossly intact, Neuro grossly intact Psych/Mental Status: Normal Affect, Appropriate, Alert and oriented to time, place, person, mood and affect Debridement Note Post-Debridement Measurements/Treatment WC - Nurse 2 - General Ulcer CM Notes Start: 07/17/18 08:12 Freq: Status: Active Protocol: Activity Type Activity Date Activity User E-Sign Co-Sign Detail Recorded Client Recorded Date Recorded By Document 07/17/18 08:56 DV [id number] 07/17/18 08:58 DV Document 07/24/18 08:56 DV [id number] 07/24/18 08:58 DV Document 07/31/18 09:23 DV [id number] 07/31/18 09:26 DV Document 08/07/18 08:52 MW [id number] 08/07/18 09:02 MW 07/17/18 07/24/18 07/31/18 08:56 08:56 09:23 Wound Center Nurse 2 #5 R Groin -Time 08:58 08:56 09:24 -Correct Patient Yes Yes Yes -Correct Side, Site, Position Yes Yes Yes -Correct Procedure Yes Yes Yes -Procedure Performed Yes Yes Yes -Type of Procedure Debridement Debridement Debridement -Clinical Debridement Subcutaneous Subcutaneous Subcutaneous -Post Debridement Size (cm) - Length 0.9 1.0 2.2 -Post Debridement Size (cm) - Width 0.9 0.9 0.9 -Post Debridement Size (cm) - Depth 0.7 1.0 1.3 -Total Square Cm 0.81 0.90 1.98 -Wound/Ulcer Outcome Not Healed Not Healed Not Healed -Ulcer Cleansing Rinsed/ Rinsed/ Rinsed/ Irrigated with Irrigated with Irrigated with Saline Saline Saline -Foul Odor after Cleansing No No No -Bioengineered Tissue No No No -Bleeding Controlled with Pressure NA Pressure Pressure -Offloading No No No -Treatment Response Procedure Procedure Procedure Tolerated Well Tolerated Well Tolerated Well Pain Scale: 0-10 Numeric Is Patient Pain Free? Yes Yes Yes 08/07/18 08:52 Wound Center Nurse 2 #5 R Groin -Time 08:52 -Correct Patient Yes -Correct Side, Site, Position Yes -Correct Procedure Yes -Procedure Performed Yes -Type of Procedure Debridement -Clinical Debridement Subcutaneous -Post Debridement Size (cm) - Length 1.5 -Post Debridement Size (cm) - Width 0.9 -Post Debridement Size (cm) - Depth 0.9 -Total Square Cm 1.35 -Wound/Ulcer Outcome Not Healed -Ulcer Cleansing Rinsed/ Irrigated with Saline -Foul Odor after Cleansing No -Bioengineered Tissue No -Bleeding Controlled with Pressure -Offloading No -Treatment Response Procedure Tolerated Well Pain Scale: 0-10 Numeric Is Patient Pain Free? Yes - Nurse 2 - General Ulcer CM Notes Start: 07/17/18 08:55 Freq: Status: Active Protocol: Activity Type Activity Date Activity User E-Sign Co-Sign Detail Recorded Client Recorded Date Recorded By Document 07/17/18 08:56 DV [id number] 07/17/18 08:58 DV Document 07/31/18 09:23 DV [id number] 07/31/18 09:26 DV Laterality: Right - Groin Type of Debridement: Excisional debridement Anesthesia Used: 5% Lidocaine Gel Depth: Down to and including healthy tissue, in the subcutaneous layer Percentage of wound debrided: 100 Instrument Used: 3mm curette Severity: Fat Layer Exposed Amount of bleeding with debridement: Mild Bleeding Controlled with: Compression and gauze Patient tolerated procedure well Assessment/Plan Active Problems History of melanoma (Chronic) Ulcer of right groin (Chronic) Amputee, 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 In the 1970's, she was diagnosed with malignant melanoma of the right calf, with metastasis to lymph nodes in the right groin. She underwent excision of the melanoma with right groin lymphadenectomy. She was subsequently treated with a long series of radiation treatments to the right groin. During the days of her radiation treatment, it is suspected that the radiation techniques were somewhat early in their evolution, and quite likely that the patient received massive doses of radiation exposure, exceeding doses which would be considered appropriate today, with techniques which are primitive by today's standards. As result, the patient has developed soft tissue radiation injury, and has previously been treated at our wound center in the past with a series of approximately 90 hyperbaric oxygen therapy treatments, in 2011. She presented with recurrence of soft tissue radionecrosis in the right groin. Hyperbaric oxygen therapy treatments were initiated, and the patient has undergone a series of 90 hyperbaric oxygen treatment sessions. She has shown mild benefit from the hyperbaric oxygen treatments. At this time, there is no clinical evidence of infection or cellulitis in the daniel-ulcer area. However, the patient is responding very slowly to the variety of conventional treatment measures which have been implemented. In review of the patient's past history, such has been the case previously, as each treatment course has been rather protracted and lengthy in nature to achieve ultimate healing. The patient was seen and evaluated in consultation at [facility] recently (Dr. Harding), which had been arranged by our facility. We have received medical records related to the patient's recent visit at [facility]. Judging from the impression at the conclusion of her consultation, no significant new recommendations have been made. Patient has been advised to keep the wound area clean and dry, and to change the Mary dressing daily. She was educated in the appropriate diet. Recent culture results were negative. Plan: The patient has been the recipient of 10 EpiFix applications. We are to continue the use of Mary, which will be applied topically every other day. No new recommendations of significance were elucidated recently by the wound care facility at [facility]. The patient will return in 2 weeks for reassessment. The patient is to continue with a nutritious diet. Biopsies of the ulceration have been obtained, and the results are negative for malignancy. Consideration had been given to the use of a skin graft substitute, Grafix Prime, but was denied by the patient's insurance. We will attempt to seek approval once again for skin graft substitute, EpiFix. In addition, it may be of benefit to seek consultation once again at [facility], as the patient has shown very little progress in terms of healing, despite what appear to be appropriate measures to this point. A more aggressive approach which might include surgical excision/debridement appears ill-advised, given the patient's history of extensive radiation to this area, and anticipation that healing will likely be impaired as a result. Several plastic surgery consultations in the past have culminated in a declination for aggressive debridement. Influenza vaccine was not administered today. The patient is not a smoker. She stands 5 feet 7 inches tall. She weighs 198 pounds. Her BMI is 31, which places her in a class I weight category. Weight loss has been recommended. She is to collaborate with her primary care physician in this regard.
--- NOTE | 2018-08-07 09:11 | HP.PCM_ITS ---
(1) History of uterine cancer Status: Chronic Current Visit: No Code(s): Z85.42 - Personal history of malignant neoplasm of other parts of uterus (2) History of melanoma Status: Chronic Current Visit: Yes Code(s): Z85.820 - Personal history of malignant melanoma of skin (3) Hyperlipidemia Status: Chronic Current Visit: No Code(s): E78.5 - Hyperlipidemia, unspecified (4) GERD (gastroesophageal reflux disease) Status: Chronic Current Visit: No Code(s): K21.9 - Gastro-esophageal reflux disease without esophagitis (5) Ulcer of right groin Status: Chronic Current Visit: Yes Qualifiers: Non-pressure ulcer stage: with fat layer exposed Code(s): L98.499 - Non-pressure chronic ulcer of skin of other sites with unspecified severity (6) Obesity (BMI 30.0-34.9) Status: Chronic Current Visit: No Code(s): E66.9 - Obesity, unspecified (7) Amputee, above knee Status: Chronic Current Visit: Yes Qualifiers: Laterality: right Code(s): Z89.619 - Acquired absence of unspecified leg above knee (8) Soft tissue radionecrosis Status: Chronic Current Visit: Yes Code(s): L59.8 - Other specified disorders of the skin and subcutaneous tissue related to radiation; Y84.2 - Radiological procedure and radiotherapy as the cause of abnormal reaction of the patient, or of later complication, without mention of misadventure at the time of the procedure (9) soft tissue radiation injury Status: Chronic Current Visit: Yes History of Present Illness Chief Complaint: 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 The patient underwent excision of her melanoma with lymphadenect sharmaine in the right groin. She also underwent lengthy radiation treatments at the [facility] in [place], [place]. Melanoma recurred, and the patient was subsequently treated with monoclonal antibodies in 1984. 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 Treatment included local ulcer care and hyperbaric oxygen therapy. She underwent a total of nearly 90 treatments of hyperbaric oxygen therapy. It is known that she tolerated the therapies well, and derived significant benefit. She relates no history of claustrophobia, or other complications related to the hyperbaric oxygen therapy treatments. She has no history of barotrauma to lungs, ears, etc. Her medical history has been reviewed, without any evidence of contraindications to hyperbaric oxygen therapy. Hyperbaric oxygen therapy has been administered for nearly 90 treatment sessions. We are currently using EpiFix allografts, and she has undergone 8 applications thus far. The patient's history suggests that the right groin wound in the past responded to hyperbaric oxygen therapy, but required 90 such sessions. It appears as though the patient's current clinical course is mimicking that of the past, with wound healing which is very recalcitrant to conventional treatment measures. 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 She is undergone excision of melanoma from the right calf, with lymphadenectomy of the right groin in the 1969's. She subsequently required surgeries of the right thigh related to osteomyelitis, MRSA infection, and radiation injury to the right femoral artery. Ultimately, the patient required right above-knee amputation, performed in 2000. She also has a remote history of open reduction and internal fixation of a right ankle fracture. Allergies/Adverse Reactions: Allergies No Known Allergies Allergy (Verified 06/20/17 09:22) Home Medications: Ambulatory Orders Medication Instructions Recorded Famotidine 20 mg PO 06/20/17 Pravastatin [Pravachol] 20 mg PO DAILY 06/20/17 - Family History Maternal - - The patient's mother is 98 years of age and relatively healthy. The patient's father at age of 79 with a history of cardiomyopathy. Smoking Status: Former smoker Tobacco Use: Non-smoker Review of Systems Constitutional: Denies: Chills, Fever, Weight Change Eyes: Denies: Pain, Vision Change HEENT: Denies: Difficulty Hearing, Difficulty Swallowing, Sinus Congestion Cardiovascular: Denies: Chest Pain, Palpitations Respiratory: Denies: Cough, Shortness of Breath Gastrointestinal: Denies: Diarrhea, Nausea, Vomiting Genitourinary: Denies: Dysuria, Hematuria Endocrine: Denies: Heat/ Cold Intolerance, Polydipsia, Polyuria Hematologic/ Lymphatic: Denies: Easy Bruising, Easy Bleeding - Physical Exam Vital Signs Temp Pulse Resp BP 96.2 F L 78 16 160/88 H 08/07/18 08:45 08/07/18 08:45 08/07/18 08:45 08/07/18 08:45 General: Alert, Oriented x3, Cooperative, No apparent distress, Well developed, Well nourished HEENT: Atraumatic, PERRLA, EOMI, Normocephalic Oral: Moist Mucosa Neck: No JVD Lungs: Normal air movement Abdomen: Non-Distended Extremities: No clubbing, No cyanosis, No edema, No Calf Tenderness, - - A well- healed right above-knee imitation stump is noted. The patient's right groin ulceration is little changed in appearance. There is evidence of epithelialization superiorly and inferiorly. Centrally, however, there remains a defect, which extends into the subcutaneous tissues. There is a moderate amount of bioburden. There is no sign of infection or cellulitis. Dimensions are documented elsewhere. Skin: No rashes Wound Measurements and Assessment WC - Nurse 1 - General Ulcer Measurement Start: 07/17/18 08:12 Freq: Status: Active Protocol: Activity Type Activity Date Activity User E-Sign Co-Sign Detail Recorded Client Recorded Date Recorded By Document 08/07/18 08:45 MW [id number] 08/07/18 08:51 MW 08/07/18 08:45 Wound Center Nurse 1 [Ulcer Assessment] #5 R Groin -Combined with other wound No -Current Size (cm) - Length 3.0 -Current Size (cm) - Width 0.8 -Current Size (cm) - Depth 0.9 -Total Square Cm 2.40 -Photo Taken No -Epithelialization None Present -Tunneling No -Undermining/Tunneling No -Circular Undermining No -Exudate Amt Small -Exudate Type Serosanguineous -Wound Margin Distinct, Outline Attached -Granulation Amt None Present (0 %) -Granulation Quality N/A -Slough/Fibrin Yes -Necrosis Amt Large (67-100%) -Necrotic Tissue Type Adherent Slough -Structure Exposed Fat Layer Exposed -Texture (Daniel-wound Skin Appearance) Assessed Scarring -Moisture (Daniel-wound Skin Appearance No Abnormality ) Assessed -Color (Daniel-wound Skin Appearance) No Abnormality Assessed -Temperature (Daniel-wound Skin No Abnormality Appearance) (Pt Warm) -Tenderness on Palpation (Daniel-wound No Skin Appearance) -Ulcer Cleansing Rinsed/ Irrigated with Saline -Foul Odor after Cleansing No -Anesthetic Used 5% Lidocaine Gel [Edema Assessment] -Lower Limb Edema Present No WC - Nurse 2 - General Ulcer CM Notes Start: 07/17/18 08:12 Freq: Status: Active Protocol: Activity Type Activity Date Activity User E-Sign Co-Sign Detail Recorded Client Recorded Date Recorded By Document 08/07/18 08:52 MW [id number] 08/07/18 09:02 MW 08/07/18 08:52 Wound Center Nurse 2 [Procedure/Treatment] #5 R Groin -Time 08:52 -Correct Patient Yes -Correct Side, Site, Position Yes -Correct Procedure Yes -Procedure Performed Yes -Type of Procedure Debridement -Clinical Debridement Subcutaneous -Post Debridement Size (cm) - Length 1.5 -Post Debridement Size (cm) - Width 0.9 -Post Debridement Size (cm) - Depth 0.9 -Total Square Cm 1.35 -Wound/Ulcer Outcome Not Healed -Ulcer Cleansing Rinsed/ Irrigated with Saline -Foul Odor after Cleansing No -Bioengineered Tissue No -Bleeding Controlled with Pressure -Offloading No -Treatment Response Procedure Tolerated Well [See Physician Procedure note for Specifics] Pain Scale: 0-10 Numeric [Pain] -Is Patient Pain Free? Yes Musculoskeletal: No Muscle Wasting Neurological: Cranial nerves II-XII grossly intact, Neuro grossly intact Psych/Mental Status: Normal Affect, Appropriate, Alert and oriented to time, place, person, mood and affect Debridement Note Post-Debridement Measurements/Treatment WC - Nurse 2 - General Ulcer CM Notes Start: 07/17/18 08:12 Freq: Status: Active Protocol: Activity Type Activity Date Activity User E-Sign Co-Sign Detail Recorded Client Recorded Date Recorded By Document 07/17/18 08:56 DV [id number] 07/17/18 08:58 DV Document 07/24/18 08:56 DV [id number] 07/24/18 08:58 DV Document 07/31/18 09:23 DV [id number] 07/31/18 09:26 DV Document 08/07/18 08:52 MW [id number] 08/07/18 09:02 MW 07/17/18 07/24/18 07/31/18 08:56 08:56 09:23 Wound Center Nurse 2 #5 R Groin -Time 08:58 08:56 09:24 -Correct Patient Yes Yes Yes -Correct Side, Site, Position Yes Yes Yes -Correct Procedure Yes Yes Yes -Procedure Performed Yes Yes Yes -Type of Procedure Debridement Debridement Debridement -Clinical Debridement Subcutaneous Subcutaneous Subcutaneous -Post Debridement Size (cm) - Length 0.9 1.0 2.2 -Post Debridement Size (cm) - Width 0.9 0.9 0.9 -Post Debridement Size (cm) - Depth 0.7 1.0 1.3 -Total Square Cm 0.81 0.90 1.98 -Wound/Ulcer Outcome Not Healed Not Healed Not Healed -Ulcer Cleansing Rinsed/ Rinsed/ Rinsed/ Irrigated with Irrigated with Irrigated with Saline Saline Saline -Foul Odor after Cleansing No No No -Bioengineered Tissue No No No -Bleeding Controlled with Pressure NA Pressure Pressure -Offloading No No No -Treatment Response Procedure Procedure Procedure Tolerated Well Tolerated Well Tolerated Well Pain Scale: 0-10 Numeric Is Patient Pain Free? Yes Yes Yes 08/07/18 08:52 Wound Center Nurse 2 #5 R Groin -Time 08:52 -Correct Patient Yes -Correct Side, Site, Position Yes -Correct Procedure Yes -Procedure Performed Yes -Type of Procedure Debridement -Clinical Debridement Subcutaneous -Post Debridement Size (cm) - Length 1.5 -Post Debridement Size (cm) - Width 0.9 -Post Debridement Size (cm) - Depth 0.9 -Total Square Cm 1.35 -Wound/Ulcer Outcome Not Healed -Ulcer Cleansing Rinsed/ Irrigated with Saline -Foul Odor after Cleansing No -Bioengineered Tissue No -Bleeding Controlled with Pressure -Offloading No -Treatment Response Procedure Tolerated Well Pain Scale: 0-10 Numeric Is Patient Pain Free? Yes - Nurse 2 - General Ulcer CM Notes Start: 07/17/18 08:55 Freq: Status: Active Protocol: Activity Type Activity Date Activity User E-Sign Co-Sign Detail Recorded Client Recorded Date Recorded By Document 07/17/18 08:56 DV [id number] 07/17/18 08:58 DV Document 07/31/18 09:23 DV [id number] 07/31/18 09:26 DV Laterality: Right - Groin Type of Debridement: Excisional debridement Anesthesia Used: 5% Lidocaine Gel Depth: Down to and including healthy tissue, in the subcutaneous layer Percentage of wound debrided: 100 Instrument Used: 3mm curette Severity: Fat Layer Exposed Amount of bleeding with debridement: Mild Bleeding Controlled with: Compression and gauze Patient tolerated procedure well Assessment/Plan Active Problems History of melanoma (Chronic) Ulcer of right groin (Chronic) Amputee, 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 In the 1970's, she was diagnosed with malignant melanoma of the right calf, with metastasis to lymph nodes in the right groin. She underwent excision of the melanoma with right groin lymphadenectomy. She was subsequently treated with a long series of radiation treatments to the right groin. During the days of her radiation treatment, it is suspected that the radiation techniques were somewhat early in their evolution, and quite likely that the patient received massive doses of radiation exposure, exceeding doses which would be considered appropriate today, with techniques which are primitive by today's standards. As result, the patient has developed soft tissue radiation injury, and has previously been treated at our wound center in the past with a series of approximately 90 hyperbaric oxygen therapy treatments, in 2011. She presented with recurrence of soft tissue radionecrosis in the right groin. Hyperbaric oxygen therapy treatments were initiated, and the patient has undergone a series of 90 hyperbaric oxygen treatment sessions. She has shown mild benefit from the hyperbaric oxygen treatments. At this time, there is no clinical evidence of infection or cellulitis in the daniel-ulcer area. However, the patient is responding very slowly to the variety of conventional treatment measures which have been implemented. In review of the patient's past history, such has been the case previously, as each treatment course has been rather protracted and lengthy in nature to achieve ultimate healing. The patient was seen and evaluated in consultation at [facility] recently (Dr. Harding), which had been arranged by our facility. We have received medical records related to the patient's recent visit at [facility]. Judging from the impression at the conclusion of her consultation, no significant new recommendations have been made. Patient has been advised to keep the wound area clean and dry, and to change the Mary dressing daily. She was educated in the appropriate diet. Recent culture results were negative. Plan: The patient has been the recipient of 10 EpiFix applications. We are to continue the use of Mary, which will be applied topically every other day. No new recommendations of significance were elucidated recently by the wound care facility at [facility]. The patient will return in 2 weeks for reassessment. The patient is to continue with a nutritious diet. Biopsies of the ulceration have been obtained, and the results are negative for malignancy. Consideration had been given to the use of a skin graft substitute, Grafix Prime, but was denied by the patient's insurance. We will attempt to seek approval once again for skin graft substitute, EpiFix. In addition, it may be of benefit to seek consultation once again at [facility], as the patient has shown very little progress in terms of healing, despite what appear to be appropriate measures to this point. A more aggressive approach which might include surgical excision/debridement appears ill-advised, given the patient's history of extensive radiation to this area, and anticipation that healing will likely be impaired as a result. Several plastic surgery consultations in the past have culminated in a declination for aggressive debridement. Influenza vaccine was not administered today. The patient is not a smoker. She stands 5 feet 7 inches tall. She weighs 198 pounds. Her BMI is 31, which places her in a class I weight category. Weight loss has been recommended. She is to collaborate with her primary care physician in this regard.
== END 2018-08-09 23:59 ==
LOC: WC 08:30
PROVIDERS: Family Provider Family Medicine; PCP Family Medicine; Referring Provider Surgery; Visit Provider Surgery
DX: L59.8 Other specified disorders of the skin and subcutaneous tissue related to radiation (principal); Y84.2 Radiological procedure and radiotherapy as the cause of abnormal reaction of the patient, or of later complication, without mention of misadventure at the time of the procedure; Z71.3 Dietary counseling and surveillance; L98.492 Non-pressure chronic ulcer of skin of other sites with fat layer exposed; E66.9 Obesity, unspecified; K21.9 Gastro-esophageal reflux disease without esophagitis; E78.5 Hyperlipidemia, unspecified; Z85.820 Personal history of malignant melanoma of skin; Z68.31 Body mass index [BMI] 31.0-31.9, adult; Z87.891 Personal history of nicotine dependence; Z85.42 Personal history of malignant neoplasm of other parts of uterus; Z89.619 Acquired absence of unspecified leg above knee; Z86.14 Personal history of Methicillin resistant Staphylococcus aureus infection
CPT/HCPCS: 11042; 87070; 87075; 87205

== ENCOUNTER 2018-09-04 08:30 | Outpatient (RCR) | payer OTHER, SELFPAY ==
[2018-08-10 01:02] VITALS: BP 160/88; PULSE 78; RESP 16; TEMP 35.7
[2018-08-21 08:08] VITALS: BP 135/90; PULSE 80; RESP 20; TEMP 35.5; BMI 68.3
--- NOTE | 2018-08-21 08:31 | PCM.WC.HP ---
(1) History of uterine cancer Status: Chronic Current Visit: No Code(s): Z85.42 - Personal history of malignant neoplasm of other parts of uterus (2) History of melanoma Status: Chronic Current Visit: Yes Code(s): Z85.820 - Personal history of malignant melanoma of skin (3) Hyperlipidemia Status: Chronic Current Visit: No Code(s): E78.5 - Hyperlipidemia, unspecified (4) GERD (gastroesophageal reflux disease) Status: Chronic Current Visit: No Code(s): K21.9 - Gastro-esophageal reflux disease without esophagitis (5) Ulcer of right groin Status: Chronic Current Visit: Yes Qualifiers: Non-pressure ulcer stage: with fat layer exposed Code(s): L98.499 - Non-pressure chronic ulcer of skin of other sites with unspecified severity (6) Obesity (BMI 30.0-34.9) Status: Chronic Current Visit: No Code(s): E66.9 - Obesity, unspecified (7) Amputee, above knee Status: Chronic Current Visit: Yes Qualifiers: Laterality: right Code(s): Z89.619 - Acquired absence of unspecified leg above knee (8) Soft tissue radionecrosis Status: Chronic Current Visit: Yes Code(s): L59.8 - Other specified disorders of the skin and subcutaneous tissue related to radiation; Y84.2 - Radiological procedure and radiotherapy as the cause of abnormal reaction of the patient, or of later complication, without mention of misadventure at the time of the procedure (9) soft tissue radiation injury Status: Chronic Current Visit: Yes History of Present Illness Chief Complaint: 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 The patient underwent excision of her melanoma with lymphadenectomy in the right groin. She also underwent lengthy radiation treatments at the [facility] in [place], [place]. Melanoma recurred, and the patient was subsequently treated with monoclonal antibodies in 1984. 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 In 2012, the patient was treated in our wound center for ulcerations of the right upper thigh and groin related to soft tissue radiation necrosis. Treatment included local ulcer care and hyperbaric oxygen therapy. She underwent a total of nearly 90 treatments of hyperbaric oxygen therapy. It is known that she tolerated the therapies well, and derived significant benefit. She relates no history of claustrophobia, or other complications related to the hyperbaric oxygen therapy treatments. She has no history of barotrauma to lungs, ears, etc. Her medical history has been reviewed, without any evidence of contraindications to hyperbaric oxygen therapy. Hyperbaric oxygen therapy has been administered for nearly 90 treatment sessions. We are currently using EpiFix allografts, and she has undergone 8 applications thus far. The patient's history suggests that the right groin wound in the past responded to hyperbaric oxygen therapy, but required 90 such sessions. It appears as though the patient's current clinical course is mimicking that of the past, with wound healing which is very recalcitrant to conventional treatment measures. 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 She is undergone excision of melanoma from the right calf, with lymphadenectomy of the right groin in the 1969's. She subsequently required surgeries of the right thigh related to osteomyelitis, MRSA infection, and radiation injury to the right femoral artery. Ultimately, the patient required right above-knee amputation, performed in 2000. She also has a remote history of open reduction and internal fixation of a right ankle fracture. Allergies/Adverse Reactions: Allergies No Known Allergies Allergy (Verified 06/20/17 09:22) Home Medications: Ambulatory Orders Medication Instructions Recorded Famotidine 20 mg PO 06/20/17 Pravastatin [Pravachol] 20 mg PO DAILY 06/20/17 - Family History Maternal - - The patient's mother is 98 years of age and relatively healthy. The patient's father at age of 79 with a history of cardiomyopathy. Smoking Status: Former smoker Tobacco Use: Non-smoker Review of Systems Constitutional: Denies: Chills, Fever, Weight Change Eyes: Denies: Pain, Vision Change HEENT: Denies: Difficulty Hearing, Difficulty Swallowing, Sinus Congestion Cardiovascular: Denies: Chest Pain, Palpitations Respiratory: Denies: Cough, Shortness of Breath Gastrointestinal: Denies: Diarrhea, Nausea, Vomiting Genitourinary: Denies: Dysuria, Hematuria Endocrine: Denies: Heat/ Cold Intolerance, Polydipsia, Polyuria Hematologic/ Lymphatic: Denies: Easy Bruising, Easy Bleeding - Physical Exam Vital Signs Temp Pulse Resp BP 96 F L 80 20 H 135/90 H 08/21/18 08:08 08/21/18 08:08 08/21/18 08:08 08/21/18 08:08 General: Alert, Oriented x3, Cooperative, No apparent distress, Well developed, Well nourished HEENT: Atraumatic, PERRLA, EOMI, Normocephalic Oral: Moist Mucosa Neck: No JVD Lungs: Normal air movement Abdomen: Non-Distended Extremities: No clubbing, No cyanosis, No edema, No Calf Tenderness, - - A well-healed right above-knee amputation stump is noted. The ulceration of the patient's right groin is little changed in appearance or size. Epithelialization has occurred superiorly and inferiorly. Centrally, however, there remains a defect, which extends into the subcutaneous tissues. There is a moderate amount of bioburden. There is no sign of infection or cellulitis. Dimensions are documented elsewhere. Skin: No rashes Wound Measurements and Assessment WC - Nurse 1 - General Ulcer Measurement Start: 08/21/18 08:08 Freq: Status: Active Protocol: Activity Type Activity Date Activity User E-Sign Co-Sign Detail Recorded Client Recorded Date Recorded By Document 08/21/18 08:08 DL [id number] 08/21/18 08:16 DL 08/21/18 08:08 Wound Center Nurse 1 [Ulcer Assessment] #5 R Groin -Current Size (cm) - Length 3.2 -Current Size (cm) - Width 0.9 -Current Size (cm) - Depth 1 -Total Square Cm 2.88 -Undermining/Tunneling Starts (O' 7 clock) -Undermining/Tunneling Ends (O'clock) 8 -Maximum Distance (cm) 0.3 -Exudate Amt Medium -Exudate Type Serosanguineous -Wound Margin Thickened -Granulation Amt Large (67-100%) -Granulation Quality [place] -Necrosis Amt Small (1-33%) -Structure Exposed N/A -Texture (Daniel-wound Skin Appearance) Scarring -Moisture (Daniel-wound Skin Appearance Maceration ) -Color (Daniel-wound Skin Appearance) No Abnormality -Temperature (Daniel-wound Skin No Abnormality Appearance) (Pt Warm) -Tenderness on Palpation (Daniel-wound No Skin Appearance) -Ulcer Cleansing Rinsed/ Irrigated with Saline -Foul Odor after Cleansing No -Anesthetic Used 5% Lidocaine Gel WC - Nurse 2 - General Ulcer CM Notes Start: 08/21/18 08:08 Freq: Status: Active Protocol: Activity Type Activity Date Activity User E-Sign Co-Sign Detail Recorded Client Recorded Date Recorded By Document 08/21/18 08:23 MW [id number] 08/21/18 08:30 MW 08/21/18 08:23 Wound Center Nurse 2 [Procedure/Treatment] -Time 08:28 -Correct Patient Yes -Correct Side, Site, Position Yes -Correct Procedure Yes -Procedure Performed Yes -Type of Procedure Debridement -Clinical Debridement Subcutaneous -Post Debridement Size (cm) - Length 2.2 -Post Debridement Size (cm) - Width 0.7 -Post Debridement Size (cm) - Depth 0.8 -Total Square Cm 1.54 -Wound/Ulcer Outcome Not Healed -Ulcer Cleansing Rinsed/ Irrigated with Saline -Foul Odor after Cleansing No -Bioengineered Tissue No -Bleeding Controlled with Pressure -Offloading No -Treatment Response Procedure Tolerated Well [See Physician Procedure note for Specifics] Pain Scale: 0-10 Numeric [Pain] -Is Patient Pain Free? Yes Musculoskeletal: No Muscle Wasting Neurological: Neuro grossly intact Psych/Mental Status: Normal Affect, Appropriate, Alert and oriented to time, place, person, mood and affect Debridement Note Post-Debridement Measurements/Treatment - Nurse 2 - General Ulcer CM Notes Start: 08/21/18 08:08 Freq: Status: Active Protocol: Activity Type Activity Date Activity User E-Sign Co-Sign Detail Recorded Client Recorded Date Recorded By Document 08/21/18 08:23 MW [id number] 08/21/18 08:30 MW 08/21/18 08:23 Wound Center Nurse 2 #5 R Groin -Time 08:28 -Correct Patient Yes -Correct Side, Site, Position Yes -Correct Procedure Yes -Procedure Performed Yes -Type of Procedure Debridement -Clinical Debridement Subcutaneous -Post Debridement Size (cm) - Length 2.2 -Post Debridement Size (cm) - Width 0.7 -Post Debridement Size (cm) - Depth 0.8 -Total Square Cm 1.54 -Wound/Ulcer Outcome Not Healed -Ulcer Cleansing Rinsed/ Irrigated with Saline -Foul Odor after Cleansing No -Bioengineered Tissue No -Bleeding Controlled with Pressure -Offloading No -Treatment Response Procedure Tolerated Well Pain Scale: 0-10 Numeric Is Patient Pain Free? 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 In the 1970's, she was diagnosed with malignant melanoma of the right calf, with metastasis to lymph nodes in the right groin. She underwent excision of the melanoma with right groin lymphadenectomy. She was subsequently treated with a long series of radiation treatments to the right groin. During the days of her radiation treatment, it is suspected that the radiation techniques were somewhat early in their evolution, and quite likely that the patient received massive doses of radiation exposure, exceeding doses which would be considered appropriate today, with techniques which are primitive by today's standards. As result, the patient has developed soft tissue radiation injury, and has previously been treated at our wound center in the past with a series of approximately 90 hyperbaric oxygen therapy treatments, in 2011. She presented with recurrence of soft tissue radionecrosis in the right groin. Hyperbaric oxygen therapy treatments were initiated, and the patient has undergone a series of 90 hyperbaric oxygen treatment sessions. She has shown mild benefit from the hyperbaric oxygen treatments. At this time, there is no clinical evidence of infection or cellulitis in the daniel-ulcer area. However, the patient is responding very slowly to the variety of conventional treatment measures which have been implemented. In review of the patient's past history, such has been the case previously, as each treatment course has been rather protracted and lengthy in nature to achieve ultimate healing. The patient was seen and evaluated in consultation at [facility] recently (Dr. Harding), which had been arranged by our facility. We have received medical records related to the patient's recent visit at [facility]. Judging from the impression at the conclusion of her consultation, no significant new recommendations have been made. Patient has been advised to keep the wound area clean and dry, and to change the Mary dressing daily. She has been educated in the appropriate diet. Recent culture results were negative. Plan: The patient has been the recipient of 10 EpiFix applications. We are to continue the use of Mary, which will be applied topically every other day. No new recommendations of significance were elucidated recently by the wound care facility at [facility]. The patient will return in 1 week for reassessment. We are to seek preauthorization for the use of PuraPly and a skin graft substitute. The patient is to continue with a nutritious diet. Biopsies of the ulceration have been obtained, and the results are negative for malignancy. A more aggressive approach which might include surgical excision/debridement appears ill-advised, given the patient's history of extensive radiation to this area, and anticipation that healing will likely be impaired as a result. Several plastic surgery consultations in the past have culminated in a declination for aggressive debridement or flap reconstruction. Influenza vaccine was not administered today. The patient is not a smoker. She stands 5 feet 7 inches tall. She weighs 198 pounds. Her BMI is 31, which places her in a class I weight category. Weight loss has been recommended. She is to collaborate with her primary care physician in this regard.
--- NOTE | 2018-08-21 08:37 | HP.PCM_ITS ---
(1) History of uterine cancer Status: Chronic Current Visit: No Code(s): Z85.42 - Personal history of malignant neoplasm of other parts of uterus (2) History of melanoma Status: Chronic Current Visit: Yes Code(s): Z85.820 - Personal history of malignant melanoma of skin (3) Hyperlipidemia Status: Chronic Current Visit: No Code(s): E78.5 - Hyperlipidemia, unspecified (4) GERD (gastroesophageal reflux disease) Status: Chronic Current Visit: No Code(s): K21.9 - Gastro-esophageal reflux disease without esophagitis (5) Ulcer of right groin Status: Chronic Current Visit: Yes Qualifiers: Non-pressure ulcer stage: with fat layer exposed Code(s): L98.499 - Non-pressure chronic ulcer of skin of other sites with unspecified severity (6) Obesity (BMI 30.0-34.9) Status: Chronic Current Visit: No Code(s): E66.9 - Obesity, unspecified (7) Amputee, above knee Status: Chronic Current Visit: Yes Qualifiers: Laterality: right Code(s): Z89.619 - Acquired absence of unspecified leg above knee (8) Soft tissue radionecrosis Status: Chronic Current Visit: Yes Code(s): L59.8 - Other specified disorders of the skin and subcutaneous tissue related to radiation; Y84.2 - Radiological procedure and radiotherapy as the cause of abnormal reaction of the patient, or of later complication, without mention of misadventure at the time of the procedure (9) soft tissue radiation injury Status: Chronic Current Visit: Yes History of Present Illness Chief Complaint: 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 The patient underwent excision of her melanoma with lymphadenect sharmaine in the right groin. She also underwent lengthy radiation treatments at the [facility] in [place], [place]. Melanoma recurred, and the patient was subsequently treated with monoclonal antibodies in 1984. 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 Treatment included local ulcer care and hyperbaric oxygen therapy. She underwent a total of nearly 90 treatments of hyperbaric oxygen therapy. It is known that she tolerated the therapies well, and derived significant benefit. She relates no history of claustrophobia, or other complications related to the hyperbaric oxygen therapy treatments. She has no history of barotrauma to lungs, ears, etc. Her medical history has been reviewed, without any evidence of contraindications to hyperbaric oxygen therapy. Hyperbaric oxygen therapy has been administered for nearly 90 treatment sessions. We are currently using EpiFix allografts, and she has undergone 8 applications thus far. The patient's history suggests that the right groin wound in the past responded to hyperbaric oxygen therapy, but required 90 such sessions. It appears as though the patient's current clinical course is mimicking that of the past, with wound healing which is very recalcitrant to conventional treatment measures. 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 She is undergone excision of melanoma from the right calf, with lymphadenectomy of the right groin in the 1969's. She subsequently required surgeries of the right thigh related to osteomyelitis, MRSA infection, and radiation injury to the right femoral artery. Ultimately, the patient required right above-knee amputation, performed in 2000. She also has a remote history of open reduction and internal fixation of a right ankle fracture. Allergies/Adverse Reactions: Allergies No Known Allergies Allergy (Verified 06/20/17 09:22) Home Medications: Ambulatory Orders Medication Instructions Recorded Famotidine 20 mg PO 06/20/17 Pravastatin [Pravachol] 20 mg PO DAILY 06/20/17 - Family History Maternal - - The patient's mother is 98 years of age and relatively healthy. The patient's father at age of 79 with a history of cardiomyopathy. Smoking Status: Former smoker Tobacco Use: Non-smoker Review of Systems Constitutional: Denies: Chills, Fever, Weight Change Eyes: Denies: Pain, Vision Change HEENT: Denies: Difficulty Hearing, Difficulty Swallowing, Sinus Congestion Cardiovascular: Denies: Chest Pain, Palpitations Respiratory: Denies: Cough, Shortness of Breath Gastrointestinal: Denies: Diarrhea, Nausea, Vomiting Genitourinary: Denies: Dysuria, Hematuria Endocrine: Denies: Heat/ Cold Intolerance, Polydipsia, Polyuria Hematologic/ Lymphatic: Denies: Easy Bruising, Easy Bleeding - Physical Exam Vital Signs Temp Pulse Resp BP 96 F L 80 20 H 135/90 H 08/21/18 08:08 08/21/18 08:08 08/21/18 08:08 08/21/18 08:08 General: Alert, Oriented x3, Cooperative, No apparent distress, Well developed, Well nourished HEENT: Atraumatic, PERRLA, EOMI, Normocephalic Oral: Moist Mucosa Neck: No JVD Lungs: Normal air movement Abdomen: Non-Distended Extremities: No clubbing, No cyanosis, No edema, No Calf Tenderness, - - A well- healed right above-knee amputation stump is noted. The ulceration of the patient's right groin is little changed in appearance or size. Epithelialization has occurred superiorly and inferiorly. Centrally, however, there remains a defect, which extends into the subcutaneous tissues. There is a moderate amount of bioburden. There is no sign of infection or cellulitis. Dimensions are documented elsewhere. Skin: No rashes Wound Measurements and Assessment WC - Nurse 1 - General Ulcer Measurement Start: 08/21/18 08:08 Freq: Status: Active Protocol: Activity Type Activity Date Activity User E-Sign Co-Sign Detail Recorded Client Recorded Date Recorded By Document 08/21/18 08:08 DL [id number] 08/21/18 08:16 DL 08/21/18 08:08 Wound Center Nurse 1 [Ulcer Assessment] #5 R Groin -Current Size (cm) - Length 3.2 -Current Size (cm) - Width 0.9 -Current Size (cm) - Depth 1 -Total Square Cm 2.88 -Undermining/Tunneling Starts (O' 7 clock) -Undermining/Tunneling Ends (O'clock) 8 -Maximum Distance (cm) 0.3 -Exudate Amt Medium -Exudate Type Serosanguineous -Wound Margin Thickened -Granulation Amt Large (67-100%) -Granulation Quality [place] -Necrosis Amt Small (1-33%) -Structure Exposed N/A -Texture (Blanche-wound Skin Appearance) Scarring -Moisture (Blanche-wound Skin Appearance Maceration ) -Color (Blanche-wound Skin Appearance) No Abnormality -Temperature (Blanche-wound Skin No Abnormality Appearance) (Pt Warm) -Tenderness on Palpation (Blanche-wound No Skin Appearance) -Ulcer Cleansing Rinsed/ Irrigated with Saline -Foul Odor after Cleansing No -Anesthetic Used 5% Lidocaine Gel WC - Nurse 2 - General Ulcer CM Notes Start: 08/21/18 08:08 Freq: Status: Active Protocol: Activity Type Activity Date Activity User E-Sign Co-Sign Detail Recorded Client Recorded Date Recorded By Document 08/21/18 08:23 MW [id number] 08/21/18 08:30 MW 08/21/18 08:23 Wound Center Nurse 2 [Procedure/Treatment] -Time 08:28 -Correct Patient Yes -Correct Side, Site, Position Yes -Correct Procedure Yes -Procedure Performed Yes -Type of Procedure Debridement -Clinical Debridement Subcutaneous -Post Debridement Size (cm) - Length 2.2 -Post Debridement Size (cm) - Width 0.7 -Post Debridement Size (cm) - Depth 0.8 -Total Square Cm 1.54 -Wound/Ulcer Outcome Not Healed -Ulcer Cleansing Rinsed/ Irrigated with Saline -Foul Odor after Cleansing No -Bioengineered Tissue No -Bleeding Controlled with Pressure -Offloading No -Treatment Response Procedure Tolerated Well [See Physician Procedure note for Specifics] Pain Scale: 0-10 Numeric [Pain] -Is Patient Pain Free? Yes Musculoskeletal: No Muscle Wasting Neurological: Neuro grossly intact Psych/Mental Status: Normal Affect, Appropriate, Alert and oriented to time, place, person, mood and affect Debridement Note Post-Debridement Measurements/Treatment - Nurse 2 - General Ulcer CM Notes Start: 08/21/18 08:08 Freq: Status: Active Protocol: Activity Type Activity Date Activity User E-Sign Co-Sign Detail Recorded Client Recorded Date Recorded By Document 08/21/18 08:23 MW [id number] 08/21/18 08:30 MW 08/21/18 08:23 Wound Center Nurse 2 #5 R Groin -Time 08:28 -Correct Patient Yes -Correct Side, Site, Position Yes -Correct Procedure Yes -Procedure Performed Yes -Type of Procedure Debridement -Clinical Debridement Subcutaneous -Post Debridement Size (cm) - Length 2.2 -Post Debridement Size (cm) - Width 0.7 -Post Debridement Size (cm) - Depth 0.8 -Total Square Cm 1.54 -Wound/Ulcer Outcome Not Healed -Ulcer Cleansing Rinsed/ Irrigated with Saline -Foul Odor after Cleansing No -Bioengineered Tissue No -Bleeding Controlled with Pressure -Offloading No -Treatment Response Procedure Tolerated Well Pain Scale: 0-10 Numeric Is Patient Pain Free? 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 In the 1970's, she was diagnosed with malignant melanoma of the right calf, with metastasis to lymph nodes in the right groin. She underwent excision of the melanoma with right groin lymphadenectomy. She was subsequently treated with a long series of radiation treatments to the right groin. During the days of her radiation treatment, it is suspected that the radiation techniques were somewhat early in their evolution, and quite likely that the patient received massive doses of radiation exposure, exceeding doses which would be considered appropriate today, with techniques which are primitive by today's standards. As result, the patient has developed soft tissue radiation injury, and has previously been treated at our wound center in the past with a series of approximately 90 hyperbaric oxygen therapy treatments, in 2011. She presented with recurrence of soft tissue radionecrosis in the right groin. Hyperbaric oxygen therapy treatments were initiated, and the patient has undergone a series of 90 hyperbaric oxygen treatment sessions. She has shown mild benefit from the hyperbaric oxygen treatments. At this time, there is no clinical evidence of infection or willie lulitis in the blanche-ulcer area. However, the patient is responding very slowly to the variety of conventional treatment measures which have been implemented. In review of the patient's past history, such has been the case previously, as each treatment course has been rather protracted and lengthy in nature to achieve ultimate healing. The patient was seen and evaluated in consultation at [facility] recently (Dr. Harding), which had been arranged by our facility. We have received medical records related to the patient's recent visit at [facility]. Judging from the impression at the conclusion of her consultation, no significant new recommendations have been made. Patient has been advised to keep the wound area clean and dry, and to change the Mary dressing daily. She has been educated in the appropriate diet. Recent culture results were negative. Plan: The patient has been the recipient of 10 EpiFix applications. We are to continue the use of Mary, which will be applied topically every other day. No new recommendations of significance were elucidated recently by the wound care facility at [facility]. The patient will return in 1 week for reassessment. We are to seek preauthorization for the use of PuraPly and a skin graft substitute. The patient is to continue with a nutritious diet. Biopsies of the ulceration have been obtained, and the results are negative for malignancy. A more aggressive approach which might include surgical excision/debridement appears ill-advised, given the patient's history of extensive radiation to this area, and anticipation that healing will likely be impaired as a result. Several plastic surgery consultations in the past have culminated in a declination for aggressive debridement or flap reconstruction. Influenza vaccine was not administered today. The patient is not a smoker. She stands 5 feet 7 inches tall. She weighs 198 pounds. Her BMI is 31, which places her in a class I weight category. Weight loss has been recommended. She is to collaborate with her primary care physician in this regard.
[2018-08-28 08:51] VITALS: BP 142/62; PULSE 81; RESP 16; TEMP 36.5; BMI 68.3
--- NOTE | 2018-08-28 09:46 | PCM.WC.HP ---
(1) History of uterine cancer Status: Chronic Current Visit: No Code(s): Z85.42 - Personal history of malignant neoplasm of other parts of uterus (2) History of melanoma Status: Chronic Current Visit: Yes Code(s): Z85.820 - Personal history of malignant melanoma of skin (3) Hyperlipidemia Status: Chronic Current Visit: No Code(s): E78.5 - Hyperlipidemia, unspecified (4) GERD (gastroesophageal reflux disease) Status: Chronic Current Visit: No Code(s): K21.9 - Gastro-esophageal reflux disease without esophagitis (5) Ulcer of right groin Status: Chronic Current Visit: Yes Qualifiers: Non-pressure ulcer stage: with fat layer exposed Code(s): L98.499 - Non-pressure chronic ulcer of skin of other sites with unspecified severity (6) Obesity (BMI 30.0-34.9) Status: Chronic Current Visit: No Code(s): E66.9 - Obesity, unspecified (7) Amputee, above knee Status: Chronic Current Visit: Yes Qualifiers: Laterality: right Code(s): Z89.619 - Acquired absence of unspecified leg above knee (8) Soft tissue radionecrosis Status: Chronic Current Visit: Yes Code(s): L59.8 - Other specified disorders of the skin and subcutaneous tissue related to radiation; Y84.2 - Radiological procedure and radiotherapy as the cause of abnormal reaction of the patient, or of later complication, without mention of misadventure at the time of the procedure (9) soft tissue radiation injury Status: Chronic Current Visit: Yes History of Present Illness Chief Complaint: 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 The patient underwent excision of her melanoma with lymphadenectomy in the right groin. She also underwent lengthy radiation treatments at the [facility] in [place], [place]. Melanoma recurred, and the patient was subsequently treated with monoclonal antibodies in 1984. 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 In 2012, the patient was treated in our wound center for ulcerations of the right upper thigh and groin related to soft tissue radiation necrosis. Treatment included local ulcer care and hyperbaric oxygen therapy. She underwent a total of nearly 90 treatments of hyperbaric oxygen therapy. It is known that she tolerated the therapies well, and derived significant benefit. She relates no history of claustrophobia, or other complications related to the hyperbaric oxygen therapy treatments. She has no history of barotrauma to lungs, ears, etc. Her medical history has been reviewed, without any evidence of contraindications to hyperbaric oxygen therapy. Hyperbaric oxygen therapy has been administered for nearly 90 treatment sessions. We are currently using EpiFix allografts, and she has undergone 8 applications thus far. The patient's history suggests that the right groin wound in the past responded to hyperbaric oxygen therapy, but required 90 such sessions. It appears as though the patient's current clinical course is mimicking that of the past, with wound healing which is very recalcitrant to conventional treatment measures. 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 She is undergone excision of melanoma from the right calf, with lymphadenectomy of the right groin in the 1969's. She subsequently required surgeries of the right thigh related to osteomyelitis, MRSA infection, and radiation injury to the right femoral artery. Ultimately, the patient required right above-knee amputation, performed in 2000. She also has a remote history of open reduction and internal fixation of a right ankle fracture. Allergies/Adverse Reactions: Allergies No Known Allergies Allergy (Verified 06/20/17 09:22) Home Medications: Ambulatory Orders Medication Instructions Recorded Famotidine 20 mg PO 06/20/17 Pravastatin [Pravachol] 20 mg PO DAILY 06/20/17 - Family History Maternal - - The patient's mother is 98 years of age and relatively healthy. The patient's father at age of 79 with a history of cardiomyopathy. Smoking Status: Former smoker Tobacco Use: Non-smoker Review of Systems Constitutional: Denies: Chills, Fever, Weight Change Eyes: Denies: Pain, Vision Change HEENT: Denies: Difficulty Hearing, Difficulty Swallowing, Sinus Congestion Cardiovascular: Denies: Chest Pain, Palpitations Respiratory: Denies: Cough, Shortness of Breath Gastrointestinal: Denies: Diarrhea, Nausea, Vomiting Genitourinary: Denies: Dysuria, Hematuria Endocrine: Denies: Heat/ Cold Intolerance, Polydipsia, Polyuria Hematologic/ Lymphatic: Denies: Easy Bruising, Easy Bleeding - Physical Exam Vital Signs Temp Pulse Resp BP 97.7 F L 81 16 142/62 H 08/28/18 08:51 08/28/18 08:51 08/28/18 08:51 08/28/18 08:51 General: Alert, Oriented x3, Cooperative, No apparent distress, Well developed, Well nourished HEENT: Atraumatic, PERRLA, EOMI, Normocephalic Oral: Moist Mucosa Neck: No JVD Lungs: Normal air movement Abdomen: Non-Distended Extremities: No clubbing, No cyanosis, No edema, No Calf Tenderness, - - Well-healed right above-knee amputation stump is again noted. The ulceration on the patient's right groin is little changed in appearance or size. Dimensions are documented elsewhere. There is evidence of epithelialization superiorly and inferiorly. Centrally, however, there is a defect which extends well into the subcutaneous tissues. There is a moderate amount of bioburden. There is no sign of infection or cellulitis. Only slight undermining is noted. Skin: No rashes Wound Measurements and Assessment WC - Nurse 1 - General Ulcer Measurement Start: 08/21/18 08:08 Freq: Status: Active Protocol: Activity Type Activity Date Activity User E-Sign Co-Sign Detail Recorded Client Recorded Date Recorded By Document 08/28/18 08:51 MW [id number] 08/28/18 08:56 MW 08/28/18 08:51 Wound Center Nurse 1 [Ulcer Assessment] #5 R Groin -Combined with other wound No -Current Size (cm) - Length 1.5 -Current Size (cm) - Width 0.6 -Current Size (cm) - Depth 0.8 -Total Square Cm 0.90 -Date of Last Picture (Recall this 08/28/18 field) -Photo Taken Yes -Epithelialization None Present -Tunneling No -Undermining/Tunneling No -Circular Undermining No -Exudate Amt Small -Exudate Type Serosanguineous -Wound Margin Distinct, Outline Attached -Granulation Amt None Present (0 %) -Granulation Quality N/A -Slough/Fibrin Yes -Necrosis Amt Large (67-100%) -Necrotic Tissue Type Adherent Slough -Structure Exposed N/A -Texture (Daniel-wound Skin Appearance) Assessed Scarring -Moisture (Daniel-wound Skin Appearance No Abnormality ) Assessed -Color (Daniel-wound Skin Appearance) No Abnormality Assessed -Temperature (Daniel-wound Skin No Abnormality Appearance) (Pt Warm) -Tenderness on Palpation (Daniel-wound Yes Skin Appearance) -Ulcer Cleansing Rinsed/ Irrigated with Saline -Foul Odor after Cleansing No -Anesthetic Used 5% Lidocaine Gel [Edema Assessment] -Lower Limb Edema Present No WC - Nurse 2 - General Ulcer CM Notes Start: 08/21/18 08:08 Freq: Status: Active Protocol: Activity Type Activity Date Activity User E-Sign Co-Sign Detail Recorded Client Recorded Date Recorded By Document 08/28/18 09:26 AN [id number] 08/28/18 09:36 AN 08/28/18 09:26 Wound Center Nurse 2 [Procedure/Treatment] #5 R Groin -Time 09:27 -Correct Patient Yes -Correct Side, Site, Position Yes -Correct Procedure Yes -Procedure Performed Yes -Type of Procedure Debridement -Clinical Debridement Subcutaneous -Post Debridement Size (cm) - Length 1.6 -Post Debridement Size (cm) - Width 0.7 -Post Debridement Size (cm) - Depth 0.8 -Total Square Cm 1.12 -Wound/Ulcer Outcome Not Healed -Ulcer Cleansing Rinsed/ Irrigated with Saline -Foul Odor after Cleansing No -Bioengineered Tissue No -Bleeding Controlled with Pressure -Offloading No -Treatment Response Procedure Tolerated Well [See Physician Procedure note for Specifics] Pain Scale: 0-10 Numeric [Pain] -Is Patient Pain Free? Yes Musculoskeletal: No Muscle Wasting Neurological: Cranial nerves II-XII grossly intact, Neuro grossly intact Psych/Mental Status: Normal Affect, Appropriate, Alert and oriented to time, place, person, mood and affect Debridement Note Post-Debridement Measurements/Treatment WC - Nurse 2 - General Ulcer CM Notes Start: 08/21/18 08:08 Freq: Status: Active Protocol: Activity Type Activity Date Activity User E-Sign Co-Sign Detail Recorded Client Recorded Date Recorded By Document 08/21/18 08:23 MW [id number] 08/21/18 08:30 MW Document 08/28/18 09:26 AN [id number] 08/28/18 09:36 AN 08/21/18 08/28/18 08:23 09:26 Wound Center Nurse 2 #5 R Groin -Time 08:28 09:27 -Correct Patient Yes Yes -Correct Side, Site, Position Yes Yes -Correct Procedure Yes Yes -Procedure Performed Yes Yes -Type of Procedure Debridement Debridement -Clinical Debridement Subcutaneous Subcutaneous -Post Debridement Size (cm) - Length 2.2 1.6 -Post Debridement Size (cm) - Width 0.7 0.7 -Post Debridement Size (cm) - Depth 0.8 0.8 -Total Square Cm 1.54 1.12 -Wound/Ulcer Outcome Not Healed Not Healed -Ulcer Cleansing Rinsed/ Rinsed/ Irrigated with Irrigated with Saline Saline -Foul Odor after Cleansing No No -Bioengineered Tissue No No -Bleeding Controlled with Pressure Pressure -Offloading No No -Treatment Response Procedure Procedure Tolerated Well Tolerated Well Pain Scale: 0-10 Numeric Is Patient Pain Free? Yes Yes Laterality: Right - Point Type of Debridement: Excisional debridement Anesthesia Used: 5% Lidocaine Gel Depth: in the subcutaneous layer Percentage of wound debrided: 100 Instrument Used: 3mm curette Severity: Fat Layer Exposed Amount of bleeding with debridement: Mild Bleeding Controlled with: Compression and gauze Patient tolerated procedure well Following a standard excisional debridement of the right groin ulceration, and Maurice allograft was applied topically. Upon removal from its sterile packaging, the allograft was cut and fashioned to the appropriate size and shape. It was then placed within the ulceration to cover the ulcer surface. It was slightly moistened, then covered with wound veil and gauze. The entire area was then anchored securely using Steri-Strips. A dry sterile gauze dressing was applied. The patient tolerated the procedure well. 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 In the 1970's, she was diagnosed with malignant melanoma of the right calf, with metastasis to lymph nodes in the right groin. She underwent excision of the melanoma with right groin lymphadenectomy. She was subsequently treated with a long series of radiation treatments to the right groin. During the days of her radiation treatment, it is suspected that the radiation techniques were somewhat early in their evolution, and quite likely that the patient received massive doses of radiation exposure, exceeding doses which would be considered appropriate today, with techniques which are primitive by today's standards. As result, the patient has developed soft tissue radiation injury, and has previously been treated at our wound center in the past with a series of approximately 90 hyperbaric oxygen therapy treatments, in 2011. She presented with recurrence of soft tissue radionecrosis in the right groin. Hyperbaric oxygen therapy treatments were initiated, and the patient has undergone a series of 90 hyperbaric oxygen treatment sessions. She has shown mild benefit from the hyperbaric oxygen treatments. At this time, there is no clinical evidence of infection or cellulitis in the daniel-ulcer area. However, the patient is responding very slowly to the variety of conventional treatment measures which have been implemented. In review of the patient's past history, such has been the case previously, as each treatment course has been rather protracted and lengthy in nature to achieve ultimate healing. The patient was seen and evaluated in consultation at [facility] recently (Dr. Harding), which had been arranged by our facility. We have received medical records related to the patient's recent visit at [facility]. Judging from the impression at the conclusion of her consultation, no significant new recommendations have been made. Patient has been advised to keep the wound area clean and dry, and to change the Mary dressing daily. She has been educated in the appropriate diet. Recent culture results were negative. Plan: The patient has been the recipient of 10 EpiFix applications. A request for preauthorization of PuraPly was denied. Thus, we have used Maurice allograft today, with anticipation that we will continue to do so in the next few weeks. Patient is to leave her current allograft and dressing in place, and will return in 1 week for reassessment. No new recommendations of significance were elucidated recently by the wound care facility at [facility]. The patient is to continue with a nutritious diet. Biopsies of the ulceration have been obtained, and the results are negative for malignancy. A more aggressive approach which might include surgical excision/debridement appears ill-advised, given the patient's history of extensive radiation to this area, and anticipation that healing will likely be impaired as a result. Several Plastic Surgery consultations in the past have culminated in a declination for aggressive debridement or flap reconstruction. Influenza vaccine was not administered today. The patient is not a smoker. She stands 5 feet 7 inches tall. She weighs 198 pounds. Her BMI is 31, which places her in a class I weight category. Weight loss has been recommended. She is to collaborate with her primary care physician in this regard.
--- NOTE | 2018-08-28 09:52 | HP.PCM_ITS ---
(1) History of uterine cancer Status: Chronic Current Visit: No Code(s): Z85.42 - Personal history of malignant neoplasm of other parts of uterus (2) History of melanoma Status: Chronic Current Visit: Yes Code(s): Z85.820 - Personal history of malignant melanoma of skin (3) Hyperlipidemia Status: Chronic Current Visit: No Code(s): E78.5 - Hyperlipidemia, unspecified (4) GERD (gastroesophageal reflux disease) Status: Chronic Current Visit: No Code(s): K21.9 - Gastro-esophageal reflux disease without esophagitis (5) Ulcer of right groin Status: Chronic Current Visit: Yes Qualifiers: Non-pressure ulcer stage: with fat layer exposed Code(s): L98.499 - Non-pressure chronic ulcer of skin of other sites with unspecified severity (6) Obesity (BMI 30.0-34.9) Status: Chronic Current Visit: No Code(s): E66.9 - Obesity, unspecified (7) Amputee, above knee Status: Chronic Current Visit: Yes Qualifiers: Laterality: right Code(s): Z89.619 - Acquired absence of unspecified leg above knee (8) Soft tissue radionecrosis Status: Chronic Current Visit: Yes Code(s): L59.8 - Other specified disorders of the skin and subcutaneous tissue related to radiation; Y84.2 - Radiological procedure and radiotherapy as the cause of abnormal reaction of the patient, or of later complication, without mention of misadventure at the time of the procedure (9) soft tissue radiation injury Status: Chronic Current Visit: Yes History of Present Illness Chief Complaint: 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 The patient underwent excision of her melanoma with lymphadenect sharmaine in the right groin. She also underwent lengthy radiation treatments at the [facility] in [place], [place]. Melanoma recurred, and the patient was subsequently treated with monoclonal antibodies in 1984. 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 Treatment included local ulcer care and hyperbaric oxygen therapy. She underwent a total of nearly 90 treatments of hyperbaric oxygen therapy. It is known that she tolerated the therapies well, and derived significant benefit. She relates no history of claustrophobia, or other complications related to the hyperbaric oxygen therapy treatments. She has no history of barotrauma to lungs, ears, etc. Her medical history has been reviewed, without any evidence of contraindications to hyperbaric oxygen therapy. Hyperbaric oxygen therapy has been administered for nearly 90 treatment sessions. We are currently using EpiFix allografts, and she has undergone 8 applications thus far. The patient's history suggests that the right groin wound in the past responded to hyperbaric oxygen therapy, but required 90 such sessions. It appears as though the patient's current clinical course is mimicking that of the past, with wound healing which is very recalcitrant to conventional treatment measures. 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 She is undergone excision of melanoma from the right calf, with lymphadenectomy of the right groin in the 1969's. She subsequently required surgeries of the right thigh related to osteomyelitis, MRSA infection, and radiation injury to the right femoral artery. Ultimately, the patient required right above-knee amputation, performed in 2000. She also has a remote history of open reduction and internal fixation of a right ankle fracture. Allergies/Adverse Reactions: Allergies No Known Allergies Allergy (Verified 06/20/17 09:22) Home Medications: Ambulatory Orders Medication Instructions Recorded Famotidine 20 mg PO 06/20/17 Pravastatin [Pravachol] 20 mg PO DAILY 06/20/17 - Family History Maternal - - The patient's mother is 98 years of age and relatively healthy. The patient's father at age of 79 with a history of cardiomyopathy. Smoking Status: Former smoker Tobacco Use: Non-smoker Review of Systems Constitutional: Denies: Chills, Fever, Weight Change Eyes: Denies: Pain, Vision Change HEENT: Denies: Difficulty Hearing, Difficulty Swallowing, Sinus Congestion Cardiovascular: Denies: Chest Pain, Palpitations Respiratory: Denies: Cough, Shortness of Breath Gastrointestinal: Denies: Diarrhea, Nausea, Vomiting Genitourinary: Denies: Dysuria, Hematuria Endocrine: Denies: Heat/ Cold Intolerance, Polydipsia, Polyuria Hematologic/ Lymphatic: Denies: Easy Bruising, Easy Bleeding - Physical Exam Vital Signs Temp Pulse Resp BP 97.7 F L 81 16 142/62 H 08/28/18 08:51 08/28/18 08:51 08/28/18 08:51 08/28/18 08:51 General: Alert, Oriented x3, Cooperative, No apparent distress, Well developed, Well nourished HEENT: Atraumatic, PERRLA, EOMI, Normocephalic Oral: Moist Mucosa Neck: No JVD Lungs: Normal air movement Abdomen: Non-Distended Extremities: No clubbing, No cyanosis, No edema, No Calf Tenderness, - - Well- healed right above-knee amputation stump is again noted. The ulceration on the patient's right groin is little changed in appearance or size. Dimensions are documented elsewhere. There is evidence of epithelialization superiorly and inferiorly. Centrally, however, there is a defect which extends well into the subcutaneous tissues. There is a moderate amount of bioburden. There is no sign of infection or cellulitis. Only slight undermining is noted. Skin: No rashes Wound Measurements and Assessment WC - Nurse 1 - General Ulcer Measurement Start: 08/21/18 08:08 Freq: Status: Active Protocol: Activity Type Activity Date Activity User E-Sign Co-Sign Detail Recorded Client Recorded Date Recorded By Document 08/28/18 08:51 MW [id number] 08/28/18 08:56 MW 08/28/18 08:51 Wound Center Nurse 1 [Ulcer Assessment] #5 R Groin -Combined with other wound No -Current Size (cm) - Length 1.5 -Current Size (cm) - Width 0.6 -Current Size (cm) - Depth 0.8 -Total Square Cm 0.90 -Date of Last Picture (Recall this 02/19/19 field) -Photo Taken Yes -Epithelialization None Present -Tunneling No -Undermining/Tunneling No -Circular Undermining No -Exudate Amt Small -Exudate Type Serosanguineous -Wound Margin Distinct, Outline Attached -Granulation Amt None Present (0 %) -Granulation Quality N/A -Slough/Fibrin Yes -Necrosis Amt Large (67-100%) -Necrotic Tissue Type Adherent Slough -Structure Exposed N/A -Texture (Daniel-wound Skin Appearance) Assessed Scarring -Moisture (Daniel-wound Skin Appearance No Abnormality ) Assessed -Color (Daniel-wound Skin Appearance) No Abnormality Assessed -Temperature (Daniel-wound Skin No Abnormality Appearance) (Pt Warm) -Tenderness on Palpation (Daniel-wound Yes Skin Appearance) -Ulcer Cleansing Rinsed/ Irrigated with Saline -Foul Odor after Cleansing No -Anesthetic Used 5% Lidocaine Gel [Edema Assessment] -Lower Limb Edema Present No WC - Nurse 2 - General Ulcer CM Notes Start: 08/21/18 08:08 Freq: Status: Active Protocol: Activity Type Activity Date Activity User E-Sign Co-Sign Detail Recorded Client Recorded Date Recorded By Document 08/28/18 09:26 AN [id number] 08/28/18 09:36 AN 08/28/18 09:26 Wound Center Nurse 2 [Procedure/Treatment] #5 R Groin -Time 09:27 -Correct Patient Yes -Correct Side, Site, Position Yes -Correct Procedure Yes -Procedure Performed Yes -Type of Procedure Debridement -Clinical Debridement Subcutaneous -Post Debridement Size (cm) - Length 1.6 -Post Debridement Size (cm) - Width 0.7 -Post Debridement Size (cm) - Depth 0.8 -Total Square Cm 1.12 -Wound/Ulcer Outcome Not Healed -Ulcer Cleansing Rinsed/ Irrigated with Saline -Foul Odor after Cleansing No -Bioengineered Tissue No -Bleeding Controlled with Pressure -Offloading No -Treatment Response Procedure Tolerated Well [See Physician Procedure note for Specifics] Pain Scale: 0-10 Numeric [Pain] -Is Patient Pain Free? Yes Musculoskeletal: No Muscle Wasting Neurological: Cranial nerves II-XII grossly intact, Neuro grossly intact Psych/Mental Status: Normal Affect, Appropriate, Alert and oriented to time, place, person, mood and affect Debridement Note Post-Debridement Measurements/Treatment WC - Nurse 2 - General Ulcer CM Notes Start: 08/21/18 08:08 Freq: Status: Active Protocol: Activity Type Activity Date Activity User E-Sign Co-Sign Detail Recorded Client Recorded Date Recorded By Document 08/21/18 08:23 MW [id number] 08/21/18 08:30 MW Document 08/28/18 09:26 AN [id number] 08/28/18 09:36 AN 08/21/18 08/28/18 08:23 09:26 Wound Center Nurse 2 #5 R Groin -Time 08:28 09:27 -Correct Patient Yes Yes -Correct Side, Site, Position Yes Yes -Correct Procedure Yes Yes -Procedure Performed Yes Yes -Type of Procedure Debridement Debridement -Clinical Debridement Subcutaneous Subcutaneous -Post Debridement Size (cm) - Length 2.2 1.6 -Post Debridement Size (cm) - Width 0.7 0.7 -Post Debridement Size (cm) - Depth 0.8 0.8 -Total Square Cm 1.54 1.12 -Wound/Ulcer Outcome Not Healed Not Healed -Ulcer Cleansing Rinsed/ Rinsed/ Irrigated with Irrigated with Saline Saline -Foul Odor after Cleansing No No -Bioengineered Tissue No No -Bleeding Controlled with Pressure Pressure -Offloading No No -Treatment Response Procedure Procedure Tolerated Well Tolerated Well Pain Scale: 0-10 Numeric Is Patient Pain Free? Yes Yes Laterality: Right - Point Type of Debridement: Excisional debridement Anesthesia Used: 5% Lidocaine Gel Depth: in the subcutaneous layer Percentage of wound debrided: 100 Instrument Used: 3mm curette Severity: Fat Layer Exposed Amount of bleeding with debridement: Mild Bleeding Controlled with: Compression and gauze Patient tolerated procedure well Following a standard excisional debridement of the right groin ulceration, and [place] allograft was applied topically. Upon removal from its sterile packaging, the allograft was cut and fashioned to the appropriate size and shape. It was then placed within the ulceration to cover the ulcer surface. It was slightly moistened, then covered with wound veil and gauze. The entire area was then a nchored securely using Steri-Strips. A dry sterile gauze dressing was applied. The patient tolerated the procedure well. 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 In the 1970's, she was diagnosed with malignant melanoma of the right calf, with metastasis to lymph nodes in the right groin. She underwent excision of the melanoma with right groin lymphadenectomy. She was subsequently treated with a long series of radiation treatments to the right groin. During the days of her radiation treatment, it is suspected that the radiation techniques were somewhat early in their evolution, and quite likely that the patient received massive doses of radiation exposure, exceeding doses which would be considered appropriate today, with techniques which are primitive by today's standards. As result, the patient has developed soft tissue radiation injury, and has previously been treated at our wound center in the past with a series of approximately 90 hyperbaric oxygen therapy treatments, in 2011. She presented with recurrence of soft tissue radionecrosis in the right groin. Hyperbaric oxygen therapy treatments were initiated, and the patient has undergone a series of 90 hyperbaric oxygen treatment sessions. She has shown mild benefit from the hyperbaric oxygen treatments. At this time, there is no clinical evidence of infection or cellulitis in the daniel-ulcer area. However, the patient is responding very slowly to the variety of conventional treatment measures which have been implemented. In review of the patient's past history, such has been the case previously, as each treatment course has been rather protracted and lengthy in nature to achieve ultimate healing. The patient was seen and evaluated in consultation at [facility] recently (Dr. Harding), which had been arranged by our facility. We have received medical records related to the patient's recent visit at [facility]. Judging from the impression at the conclusion of her consultation, no significant new recommendations have been made. Patient has been advised to keep the wound area clean and dry, and to change the Mary dressing daily. She has been educated in the appropriate diet. Recent culture results were negative. Plan: The patient has been the recipient of 10 EpiFix applications. A request for preauthorization of PuraPly was denied. Thus, we have used [place] allograft today, with anticipation that we will continue to do so in the next few weeks. Patient is to leave her current allograft and dressing in place, and will return in 1 week for reassessment. No new recommendations of significance were elucidated recently by the wound care facility at [facility]. The patient is to continue with a nutritious diet. Biopsies of the ulceration have been obtained, and the results are negative for malignancy. A more aggressive approach which might include surgical excision/debridement appears ill-advised, given the patient's history of extensive radiation to this area, and anticipation that healing will likely be impaired as a result. Several Plastic Surgery consultations in the past have culminated in a declination for aggressive debridement or flap reconstruction. Influenza vaccine was not administered today. The patient is not a smoker. She stands 5 feet 7 inches tall. She weighs 198 pounds. Her BMI is 31, which places her in a class I weight category. Weight loss has been recommended. She is to collaborate with her primary care physician in this regard.
[2018-09-04 08:51] VITALS: BP 137/75; PULSE 87; RESP 18; TEMP 35.3; BMI 68.3
--- NOTE | 2018-09-04 09:14 | PCM.WC.HP ---
(1) History of uterine cancer Status: Chronic Current Visit: No Code(s): Z85.42 - Personal history of malignant neoplasm of other parts of uterus (2) History of melanoma Status: Chronic Current Visit: Yes Code(s): Z85.820 - Personal history of malignant melanoma of skin (3) Hyperlipidemia Status: Chronic Current Visit: No Code(s): E78.5 - Hyperlipidemia, unspecified (4) GERD (gastroesophageal reflux disease) Status: Chronic Current Visit: No Code(s): K21.9 - Gastro-esophageal reflux disease without esophagitis (5) Ulcer of right groin Status: Chronic Current Visit: Yes Qualifiers: Non-pressure ulcer stage: with fat layer exposed Code(s): L98.499 - Non-pressure chronic ulcer of skin of other sites with unspecified severity (6) Obesity (BMI 30.0-34.9) Status: Chronic Current Visit: No Code(s): E66.9 - Obesity, unspecified (7) Amputee, above knee Status: Chronic Current Visit: Yes Qualifiers: Laterality: right Code(s): Z89.619 - Acquired absence of unspecified leg above knee (8) Soft tissue radionecrosis Status: Chronic Current Visit: Yes Code(s): L59.8 - Other specified disorders of the skin and subcutaneous tissue related to radiation; Y84.2 - Radiological procedure and radiotherapy as the cause of abnormal reaction of the patient, or of later complication, without mention of misadventure at the time of the procedure (9) soft tissue radiation injury Status: Chronic Current Visit: Yes History of Present Illness Chief Complaint: 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 The patient underwent excision of her melanoma with lymphadenectomy in the right groin. She also underwent lengthy radiation treatments at the [facility] in [place], [place]. Melanoma recurred, and the patient was subsequently treated with monoclonal antibodies in 1984. 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 In 2012, the patient was treated in our wound center for ulcerations of the right upper thigh and groin related to soft tissue radiation necrosis. Treatment included local ulcer care and hyperbaric oxygen therapy. She underwent a total of nearly 90 treatments of hyperbaric oxygen therapy. It is known that she tolerated the therapies well, and derived significant benefit. She relates no history of claustrophobia, or other complications related to the hyperbaric oxygen therapy treatments. She has no history of barotrauma to lungs, ears, etc. Her medical history has been reviewed, without any evidence of contraindications to hyperbaric oxygen therapy. Hyperbaric oxygen therapy has been administered for nearly 90 treatment sessions. We are currently using EpiFix allografts, and she has undergone 8 applications thus far. The patient's history suggests that the right groin wound in the past responded to hyperbaric oxygen therapy, but required 90 such sessions. It appears as though the patient's current clinical course is mimicking that of the past, with wound healing which is very recalcitrant to conventional treatment measures. 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 She has undergone excision of melanoma from the right calf, with lymphadenectomy of the right groin in the 1969's. She subsequently required surgeries of the right thigh related to osteomyelitis, MRSA infection, and radiation injury to the right femoral artery. Ultimately, the patient required right above-knee amputation, performed in 2000. She also has a remote history of open reduction and internal fixation of a right ankle fracture. Allergies/Adverse Reactions: Allergies No Known Allergies Allergy (Verified 06/20/17 09:22) Home Medications: Ambulatory Orders Medication Instructions Recorded Famotidine 20 mg PO 06/20/17 Pravastatin [Pravachol] 20 mg PO DAILY 06/20/17 - Family History Maternal - - The patient's mother is 98 years of age and relatively healthy. The patient's father at age of 79 with a history of cardiomyopathy. Smoking Status: Former smoker Tobacco Use: Non-smoker Review of Systems Constitutional: Denies: Chills, Fever, Weight Change Eyes: Denies: Pain, Vision Change HEENT: Denies: Difficulty Hearing, Difficulty Swallowing, Sinus Congestion Cardiovascular: Denies: Chest Pain, Palpitations Respiratory: Denies: Cough, Shortness of Breath Gastrointestinal: Denies: Diarrhea, Nausea, Vomiting Genitourinary: Denies: Dysuria, Hematuria Endocrine: Denies: Heat/ Cold Intolerance, Polydipsia, Polyuria Hematologic/ Lymphatic: Denies: Easy Bruising, Easy Bleeding - Physical Exam Vital Signs Temp Pulse Resp BP 95.5 F L 87 18 137/75 H 09/04/18 08:51 09/04/18 08:51 09/04/18 08:51 09/04/18 08:51 General: Alert, Oriented x3, Cooperative, No apparent distress, Well developed, Well nourished HEENT: Atraumatic, PERRLA, EOMI, Normocephalic Oral: Moist Mucosa Neck: No JVD Lungs: Normal air movement Abdomen: Non-Distended Extremities: No clubbing, No cyanosis, No edema, No Calf Tenderness, - - A well-healed right above-knee amputation stump is noted. The ulceration in the right groin is little changed, though appears to be slightly decreased in size. Dimensions are documented elsewhere. There is no sign of infection or cellulitis. There is a mild amount of bioburden. Skin: No rashes Wound Measurements and Assessment WC - Nurse 1 - General Ulcer Measurement Start: 08/21/18 08:08 Freq: Status: Active Protocol: Activity Type Activity Date Activity User E-Sign Co-Sign Detail Recorded Client Recorded Date Recorded By Document 09/04/18 08:51 [id number] 09/04/18 08:53 09/04/18 08:51 Wound Center Nurse 1 [Ulcer Assessment] #5 R Groin -Combined with other wound No -Current Size (cm) - Length 2.8 -Current Size (cm) - Width 0.9 -Current Size (cm) - Depth 1.1 -Total Square Cm 2.52 -Photo Taken No -Epithelialization None Present -Tunneling No -Undermining/Tunneling No -Circular Undermining No -Exudate Amt Small -Exudate Type Serosanguineous -Wound Margin Flat & Intact -Granulation Amt Medium (34-66%) -Granulation Quality Caroline -Slough/Fibrin Yes -Necrosis Amt Medium (34-66%) -Necrotic Tissue Type Adherent Slough -Structure Exposed N/A -Texture (Daniel-wound Skin Appearance) Assessed Excoriation Friable -Moisture (Daniel-wound Skin Appearance Assessed ) Dry/Scaly -Color (Adniel-wound Skin Appearance) Assessed -Temperature (Daniel-wound Skin No Abnormality Appearance) (Pt Warm) -Tenderness on Palpation (Daniel-wound No Skin Appearance) -Ulcer Cleansing Rinsed/ Irrigated with Saline -Foul Odor after Cleansing No -Anesthetic Used 5% Lidocaine Gel [Edema Assessment] -Lower Limb Edema Present NA - Nurse 2 - General Ulcer CM Notes Start: 08/21/18 08:08 Freq: Status: Active Protocol: Activity Type Activity Date Activity User E-Sign Co-Sign Detail Recorded Client Recorded Date Recorded By Document 09/04/18 09:04 DV [id number] 09/04/18 09:05 DV 09/04/18 09:04 Wound Center Nurse 2 [Procedure/Treatment] #5 R Groin -Time 09:04 -Correct Patient Yes -Correct Side, Site, Position Yes -Correct Procedure Yes -Procedure Performed Yes -Type of Procedure Debridement -Clinical Debridement Subcutaneous -Post Debridement Size (cm) - Length 1.0 -Post Debridement Size (cm) - Width 0.8 -Post Debridement Size (cm) - Depth 0.9 -Total Square Cm 0.80 -Wound/Ulcer Outcome Not Healed -Ulcer Cleansing Rinsed/ Irrigated with Saline -Foul Odor after Cleansing No -Bioengineered Tissue No -Bleeding Controlled with Pressure -Offloading No -Treatment Response Procedure Tolerated Well [See Physician Procedure note for Specifics] Pain Scale: 0-10 Numeric [Pain] -Is Patient Pain Free? Yes Musculoskeletal: No Muscle Wasting Neurological: Cranial nerves II-XII grossly intact, Neuro grossly intact Psych/Mental Status: Normal Affect, Appropriate, Alert and oriented to time, place, person, mood and affect Debridement Note Post-Debridement Measurements/Treatment - Nurse 2 - General Ulcer CM Notes Start: 08/21/18 08:08 Freq: Status: Active Protocol: Activity Type Activity Date Activity User E-Sign Co-Sign Detail Recorded Client Recorded Date Recorded By Document 08/21/18 08:23 MW [id number] 08/21/18 08:30 MW Document 08/28/18 09:26 AN [id number] 08/28/18 09:36 AN Document 09/04/18 09:04 DV [id number] 09/04/18 09:05 DV 08/21/18 08/28/18 09/04/18 08:23 09:26 09:04 Wound Center Nurse 2 #5 R Groin -Time 08:28 09:27 09:04 -Correct Patient Yes Yes Yes -Correct Side, Site, Position Yes Yes Yes -Correct Procedure Yes Yes Yes -Procedure Performed Yes Yes Yes -Type of Procedure Debridement Debridement Debridement -Clinical Debridement Subcutaneous Subcutaneous Subcutaneous -Post Debridement Size (cm) - Length 2.2 1.6 1.0 -Post Debridement Size (cm) - Width 0.7 0.7 0.8 -Post Debridement Size (cm) - Depth 0.8 0.8 0.9 -Total Square Cm 1.54 1.12 0.80 -Wound/Ulcer Outcome Not Healed Not Healed Not Healed -Ulcer Cleansing Rinsed/ Rinsed/ Rinsed/ Irrigated with Irrigated with Irrigated with Saline Saline Saline -Foul Odor after Cleansing No No No -Bioengineered Tissue No No No -Bleeding Controlled with Pressure Pressure Pressure -Offloading No No No -Treatment Response Procedure Procedure Procedure Tolerated Well Tolerated Well Tolerated Well Pain Scale: 0-10 Numeric Is Patient Pain Free? Yes Yes Yes Laterality: Right - Groin Type of Debridement: Excisional debridement Anesthesia Used: 5% Lidocaine Gel Depth: Down to and including healthy tissue, in the subcutaneous layer Percentage of wound debrided: 100 Instrument Used: 5mm curette Severity: Fat Layer Exposed Amount of bleeding with debridement: Mild Bleeding Controlled with: Compression and gauze Patient tolerated procedure well Following a routine excisional debridement of the right groin ulceration, an Lily[place] allograft was applied topically. A 3 cm x 3.5 cm fenestrated allograft was used. Upon removal from its sterile packaging, the allograft was cut and fashioned to the appropriate size and shape. It was applied topically to the ulcer surface. Wound veil and gauze were then applied, and the site was anchored securely using Steri-Strips. The procedure was well-tolerated. 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 In the 1970's, she was diagnosed with malignant melanoma of the right calf, with metastasis to lymph nodes in the right groin. She underwent excision of the melanoma with right groin lymphadenectomy. She was subsequently treated with a long series of radiation treatments to the right groin. During the days of her radiation treatment, it is suspected that the radiation techniques were somewhat early in their evolution, and quite likely that the patient received massive doses of radiation exposure, exceeding doses which would be considered appropriate today, with techniques which are primitive by today's standards. As result, the patient has developed soft tissue radiation injury, and has previously been treated at our wound center in the past with a series of approximately 90 hyperbaric oxygen therapy treatments, in 2011. She presented with recurrence of soft tissue radionecrosis in the right groin. Hyperbaric oxygen therapy treatments were initiated, and the patient has undergone a series of 90 hyperbaric oxygen treatment sessions. She has shown mild benefit from the hyperbaric oxygen treatments. At this time, there is no clinical evidence of infection or cellulitis in the daniel-ulcer area. However, the patient is responding very slowly to the variety of conventional treatment measures which have been implemented. In review of the patient's past history, such has been the case previously, as each treatment course has been rather protracted and lengthy in nature to achieve ultimate healing. The patient was seen and evaluated in consultation at [facility] recently (Dr. Harding), which had been arranged by our facility. We have received medical records related to the patient's recent visit at [facility]. Judging from the impression at the conclusion of her consultation, no significant new recommendations have been made. Patient has been advised to keep the wound area clean and dry, and to change the Mary dressing daily. She has been educated in the appropriate diet. Recent culture results were negative. Plan: The patient has been the recipient of 10 EpiFix applications. A request for preauthorization of PuraPly was denied. Thus, we have used Lily[place] allograft today, with anticipation that we will continue to do so in the next few weeks. The patient is to leave her current allograft and dressing in place, and will return in 1 week for reassessment. No new recommendations of significance were elucidated recently by the wound care facility at [facility], where a second opinion was sought. The patient is to continue with a nutritious diet. Biopsies of the ulceration have been obtained, and the results were negative for malignancy. A more aggressive approach which might include surgical excision/debridement appears ill-advised, given the patient's history of extensive radiation to this area, and anticipation that healing will likely be impaired as a result. Several Plastic Surgery consultations in the past have culminated in a declination for aggressive debridement or flap reconstruction. Influenza vaccine was not administered today. The patient is not a smoker. She stands 5 feet 7 inches tall. She weighs 198 pounds. Her BMI is 31, which places her in a class I weight category. Weight loss has been recommended. She is to collaborate with her primary care physician in this regard.
--- NOTE | 2018-09-04 09:20 | HP.PCM_ITS ---
(1) History of uterine cancer Status: Chronic Current Visit: No Code(s): Z85.42 - Personal history of malignant neoplasm of other parts of uterus (2) History of melanoma Status: Chronic Current Visit: Yes Code(s): Z85.820 - Personal history of malignant melanoma of skin (3) Hyperlipidemia Status: Chronic Current Visit: No Code(s): E78.5 - Hyperlipidemia, unspecified (4) GERD (gastroesophageal reflux disease) Status: Chronic Current Visit: No Code(s): K21.9 - Gastro-esophageal reflux disease without esophagitis (5) Ulcer of right groin Status: Chronic Current Visit: Yes Qualifiers: Non-pressure ulcer stage: with fat layer exposed Code(s): L98.499 - Non-pressure chronic ulcer of skin of other sites with unspecified severity (6) Obesity (BMI 30.0-34.9) Status: Chronic Current Visit: No Code(s): E66.9 - Obesity, unspecified (7) Amputee, above knee Status: Chronic Current Visit: Yes Qualifiers: Laterality: right Code(s): Z89.619 - Acquired absence of unspecified leg above knee (8) Soft tissue radionecrosis Status: Chronic Current Visit: Yes Code(s): L59.8 - Other specified disorders of the skin and subcutaneous tissue related to radiation; Y84.2 - Radiological procedure and radiotherapy as the cause of abnormal reaction of the patient, or of later complication, without mention of misadventure at the time of the procedure (9) soft tissue radiation injury Status: Chronic Current Visit: Yes History of Present Illness Chief Complaint: 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 The patient underwent excision of her melanoma with lymphadenect sharmaine in the right groin. She also underwent lengthy radiation treatments at the [facility] in [place], [place]. Melanoma recurred, and the patient was subsequently treated with monoclonal antibodies in 1984. 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 Treatment included local ulcer care and hyperbaric oxygen therapy. She underwent a total of nearly 90 treatments of hyperbaric oxygen therapy. It is known that she tolerated the therapies well, and derived significant benefit. She relates no history of claustrophobia, or other complications related to the hyperbaric oxygen therapy treatments. She has no history of barotrauma to lungs, ears, etc. Her medical history has been reviewed, without any evidence of contraindications to hyperbaric oxygen therapy. Hyperbaric oxygen therapy has been administered for nearly 90 treatment sessions. We are currently using EpiFix allografts, and she has undergone 8 applications thus far. The patient's history suggests that the right groin wound in the past responded to hyperbaric oxygen therapy, but required 90 such sessions. It appears as though the patient's current clinical course is mimicking that of the past, with wound healing which is very recalcitrant to conventional treatment measures. 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 She has undergone excision of melanoma from the right calf, with lymphadenectomy of the right groin in the 1969's. She subsequently required surgeries of the right thigh related to osteomyelitis, MRSA infection, and radiation injury to the right femoral artery. Ultimately, the patient required right above-knee amputation, performed in 2000. She also has a remote history of open reduction and internal fixation of a right ankle fracture. Allergies/Adverse Reactions: Allergies No Known Allergies Allergy (Verified 06/20/17 09:22) Home Medications: Ambulatory Orders Medication Instructions Recorded Famotidine 20 mg PO 06/20/17 Pravastatin [Pravachol] 20 mg PO DAILY 06/20/17 - Family History Maternal - - The patient's mother is 98 years of age and relatively healthy. The patient's father at age of 79 with a history of cardiomyopathy. Smoking Status: Former smoker Tobacco Use: Non-smoker Review of Systems Constitutional: Denies: Chills, Fever, Weight Change Eyes: Denies: Pain, Vision Change HEENT: Denies: Difficulty Hearing, Difficulty Swallowing, Sinus Congestion Cardiovascular: Denies: Chest Pain, Palpitations Respiratory: Denies: Cough, Shortness of Breath Gastrointestinal: Denies: Diarrhea, Nausea, Vomiting Genitourinary: Denies: Dysuria, Hematuria Endocrine: Denies: Heat/ Cold Intolerance, Polydipsia, Polyuria Hematologic/ Lymphatic: Denies: Easy Bruising, Easy Bleeding - Physical Exam Vital Signs Temp Pulse Resp BP 95.5 F L 87 18 137/75 H 09/04/18 08:51 09/04/18 08:51 09/04/18 08:51 09/04/18 08:51 General: Alert, Oriented x3, Cooperative, No apparent distress, Well developed, Well nourished HEENT: Atraumatic, PERRLA, EOMI, Normocephalic Oral: Moist Mucosa Neck: No JVD Lungs: Normal air movement Abdomen: Non-Distended Extremities: No clubbing, No cyanosis, No edema, No Calf Tenderness, - - A well- healed right above-knee amputation stump is noted. The ulceration in the right groin is little changed, though appears to be slightly decreased in size. Dimensions are documented elsewhere. There is no sign of infection or cellulitis. There is a mild amount of bioburden. Skin: No rashes Wound Measurements and Assessment WC - Nurse 1 - General Ulcer Measurement Start: 08/21/18 08:08 Freq: Status: Active Protocol: Activity Type Activity Date Activity User E-Sign Co-Sign Detail Recorded Client Recorded Date Recorded By Document 09/04/18 08:51 [id number] 09/04/18 08:53 HARDIK 09/04/18 08:51 Wound Center Nurse 1 [Ulcer Assessment] #5 R Groin -Combined with other wound No -Current Size (cm) - Length 2.8 -Current Size (cm) - Width 0.9 -Current Size (cm) - Depth 1.1 -Total Square Cm 2.52 -Photo Taken No -Epithelialization None Present -Tunneling No -Undermining/Tunneling No -Circular Undermining No -Exudate Amt Small -Exudate Type Serosanguineous -Wound Margin Flat & Intact -Granulation Amt Medium (34-66%) -Granulation Quality Rennert -Slough/Fibrin Yes -Necrosis Amt Medium (34-66%) -Necrotic Tissue Type Adherent Slough -Structure Exposed N/A -Texture (Blanche-wound Skin Appearance) Assessed Excoriation Friable -Moisture (Blanche-wound Skin Appearance Assessed ) Dry/Scaly -Color (Blanche-wound Skin Appearance) Assessed -Temperature (Blanche-wound Skin No Abnormality Appearance) (Pt Warm) -Tenderness on Palpation (Blanche-wound No Skin Appearance) -Ulcer Cleansing Rinsed/ Irrigated with Saline -Foul Odor after Cleansing No -Anesthetic Used 5% Lidocaine Gel [Edema Assessment] -Lower Limb Edema Present NA - Nurse 2 - General Ulcer CM Notes Start: 08/21/18 08:08 Freq: Status: Active Protocol: Activity Type Activity Date Activity User E-Sign Co-Sign Detail Recorded Client Recorded Date Recorded By Document 09/04/18 09:04 DV [id number] 09/04/18 09:05 DV 09/04/18 09:04 Wound Center Nurse 2 [Procedure/Treatment] #5 R Groin -Time 09:04 -Correct Patient Yes -Correct Side, Site, Position Yes -Correct Procedure Yes -Procedure Performed Yes -Type of Procedure Debridement -Clinical Debridement Subcutaneous -Post Debridement Size (cm) - Length 1.0 -Post Debridement Size (cm) - Width 0.8 -Post Debridement Size (cm) - Depth 0.9 -Total Square Cm 0.80 -Wound/Ulcer Outcome Not Healed -Ulcer Cleansing Rinsed/ Irrigated with Saline -Foul Odor after Cleansing No -Bioengineered Tissue No -Bleeding Controlled with Pressure -Offloading No -Treatment Response Procedure Tolerated Well [See Physician Procedure note for Specifics] Pain Scale: 0-10 Numeric [Pain] -Is Patient Pain Free? Yes Musculoskeletal: No Muscle Wasting Neurological: Cranial nerves II-XII grossly intact, Neuro grossly intact Psych/Mental Status: Normal Affect, Appropriate, Alert and oriented to time, place, person, mood and affect Debridement Note Post-Debridement Measurements/Treatment - Nurse 2 - General Ulcer CM Notes Start: 08/21/18 08:08 Freq: Status: Active Protocol: Activity Type Activity Date Activity User E-Sign Co-Sign Detail Recorded Client Recorded Date Recorded By Document 08/21/18 08:23 MW [id number] 08/21/18 08:30 MW Document 08/28/18 09:26 AN [id number] 08/28/18 09:36 AN Document 09/04/18 09:04 DV [id number] 09/04/18 09:05 DV 08/21/18 08/28/18 09/04/18 08:23 09:26 09:04 Wound Center Nurse 2 #5 R Groin -Time 08:28 09:27 09:04 -Correct Patient Yes Yes Yes -Correct Side, Site, Position Yes Yes Yes -Correct Procedure Yes Yes Yes -Procedure Performed Yes Yes Yes -Type of Procedure Debridement Debridement Debridement -Clinical Debridement Subcutaneous Subcutaneous Subcutaneous -Post Debridement Size (cm) - Length 2.2 1.6 1.0 -Post Debridement Size (cm) - Width 0.7 0.7 0.8 -Post Debridement Size (cm) - Depth 0.8 0.8 0.9 -Total Square Cm 1.54 1.12 0.80 -Wound/Ulcer Outcome Not Healed Not Healed Not Healed -Ulcer Cleansing Rinsed/ Rinsed/ Rinsed/ Irrigated with Irrigated with Irrigated with Saline Saline Saline -Foul Odor after Cleansing No No No -Bioengineered Tissue No No No -Bleeding Controlled with Pressure Pressure Pressure -Offloading No No No -Treatment Response Procedure Procedure Procedure Tolerated Well Tolerated Well Tolerated Well Pain Scale: 0-10 Numeric Is Patient Pain Free? Yes Yes Yes Laterality: Right - Groin Type of Debridement: Excisional debridement Anesthesia Used: 5% Lidocaine Gel Depth: Down to and including healthy tissue, in the subcutaneous layer Percentage of wound debrided: 100 Instrument Used: 5mm curette Severity: Fat Layer Exposed Amount of bleeding with debridement: Mild Bleeding Controlled with: Compression and gauze Patient tolerated procedure well Following a routine excisional debridement of the right groin ulceration, an Cowley allograft was applied topically. A 3 cm x 3.5 cm fenestrated allograft was used. Upon removal from its sterile packaging, the allograft was cut and fashioned to the appropriate size and shape. It was applied topically to the ulcer surface. Wound veil and gauze were then applied, and the site was anchored securely using Steri-Strips. The procedure was well-tolerated. 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 In the 1970's, she was diagnosed with malignant melanoma of the right calf, with metastasis to lymph nodes in the right groin. She underwent excision of the melanoma with right groin lymphadenectomy. She was subsequently treated with a long series of radiation treatments to the right groin. During the days of her radiation treatment, it is suspected that the radiation techniques were somewhat early in their evolution, and quite likely that the patient received massive doses of radiation exposure, exceeding doses which would be considered appropriate today, with techniques which are primitive by today's standards. As result, the patient has developed soft tissue radiation injury, and has previously been treated at our wound center in the past with a series of approximately 90 hyperbaric oxygen therapy treatments, in 2011. She presented with recurrence of soft tissue radionecrosis in the right groin. Hyperbaric oxygen therapy treatments were initiated, and the patient has undergone a series of 90 hyperbaric oxygen treatment sessions. She has shown mild benefit from the hyperbaric oxygen treatments. At this time, there is no clinical evidence of infection or cellulitis in the blanche-ulcer area. However, the patient is responding very slowly to the variety of conventional treatment measures which have been implemented. In review of the patient's past history, such has been the case previously, as each treatment course has been rather protracted and lengthy in nature to achieve ultimate healing. The patient was seen and evaluated in consultation at [facility] recently (Dr. Harding), which had been arranged by our facility. We have received medical records related to the patient's recent visit at [facility]. Judging from the impression at the conclusion of her consultation, no significant new recommendations have been made. Patient has been advised to keep the wound area clean and dry, and to change the Mary dressing daily. She has been educated in the appropriate diet. Recent culture results were negative. Plan: The patient has been the recipient of 10 EpiFix applications. A request for preauthorization of PuraPly was denied. Thus, we have used Cowley allograft today, with anticipation that we will continue to do so in the next few weeks. The patient is to leave her current allograft and dressing in place, and will return in 1 week for reassessment. No new recommendations of significance were elucidated recently by the wound care facility at [facility], where a second opinion was sought. The patient is to continue with a nutritious diet. Biopsies of the ulceration have been obtained, and the results were negative for malignancy. A more aggressive approach which might include surgical excision/debridement appears ill-advised, given the patient's history of extensive radiation to this area, and anticipation that healing will likely be impaired as a result. Several Plastic Surgery consultations in the past have culminated in a declination for aggressive debridement or flap reconstruction. Influenza vaccine was not administered today. The patient is not a smoker. She stands 5 feet 7 inches tall. She weighs 198 pounds. Her BMI is 31, which places her in a class I weight category. Weight loss has been recommended. She is to collaborate with her primary care physician in this regard.
== END 2018-09-06 23:59 ==
LOC: WC 08:30
PROVIDERS: Family Provider Family Medicine; PCP Family Medicine; Referring Provider Surgery; Visit Provider Surgery
DX: L59.8 Other specified disorders of the skin and subcutaneous tissue related to radiation (principal); Y84.2 Radiological procedure and radiotherapy as the cause of abnormal reaction of the patient, or of later complication, without mention of misadventure at the time of the procedure; L98.492 Non-pressure chronic ulcer of skin of other sites with fat layer exposed; Z85.42 Personal history of malignant neoplasm of other parts of uterus; Z85.820 Personal history of malignant melanoma of skin; E78.5 Hyperlipidemia, unspecified; K21.9 Gastro-esophageal reflux disease without esophagitis; E66.9 Obesity, unspecified; Z71.3 Dietary counseling and surveillance; Z86.14 Personal history of Methicillin resistant Staphylococcus aureus infection; Z87.891 Personal history of nicotine dependence; Z89.611 Acquired absence of right leg above knee
CPT/HCPCS: 11042

== ENCOUNTER 2018-09-18 08:30 | Outpatient (RCR) | payer OTHER, SELFPAY ==
[2018-09-07 00:50] VITALS: BP 137/75; PULSE 87; RESP 18; TEMP 35.3
[2018-09-11 08:53] VITALS: BP 136/83; PULSE 86; RESP 18; TEMP 36.9; BMI 68.3
--- NOTE | 2018-09-11 09:55 | PCM.WC.HP ---
(1) History of uterine cancer Status: Chronic Current Visit: No Code(s): Z85.42 - Personal history of malignant neoplasm of other parts of uterus (2) History of melanoma Status: Chronic Current Visit: Yes Code(s): Z85.820 - Personal history of malignant melanoma of skin (3) Hyperlipidemia Status: Chronic Current Visit: No Code(s): E78.5 - Hyperlipidemia, unspecified (4) GERD (gastroesophageal reflux disease) Status: Chronic Current Visit: No Code(s): K21.9 - Gastro-esophageal reflux disease without esophagitis (5) Ulcer of right groin Status: Chronic Current Visit: Yes Qualifiers: Non-pressure ulcer stage: with fat layer exposed Code(s): L98.499 - Non-pressure chronic ulcer of skin of other sites with unspecified severity (6) Obesity (BMI 30.0-34.9) Status: Chronic Current Visit: No Code(s): E66.9 - Obesity, unspecified (7) Amputee, above knee Status: Chronic Current Visit: Yes Qualifiers: Laterality: right Code(s): Z89.619 - Acquired absence of unspecified leg above knee (8) Soft tissue radionecrosis Status: Chronic Current Visit: Yes Code(s): L59.8 - Other specified disorders of the skin and subcutaneous tissue related to radiation; Y84.2 - Radiological procedure and radiotherapy as the cause of abnormal reaction of the patient, or of later complication, without mention of misadventure at the time of the procedure (9) soft tissue radiation injury Status: Chronic Current Visit: Yes History of Present Illness Chief Complaint: 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 The patient underwent excision of her melanoma with lymphadenectomy in the right groin. She also underwent lengthy radiation treatments at the [facility] in [place], [place]. Melanoma recurred, and the patient was subsequently treated with monoclonal antibodies in 1984. 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 In 2012, the patient was treated in our wound center for ulcerations of the right upper thigh and groin related to soft tissue radiation necrosis. Treatment included local ulcer care and hyperbaric oxygen therapy. She underwent a total of nearly 90 treatments of hyperbaric oxygen therapy. It is known that she tolerated the therapies well, and derived significant benefit. She relates no history of claustrophobia, or other complications related to the hyperbaric oxygen therapy treatments. She has no history of barotrauma to lungs, ears, etc. Her medical history has been reviewed, without any evidence of contraindications to hyperbaric oxygen therapy. Hyperbaric oxygen therapy has been administered for nearly 90 treatment sessions. We are currently using EpiFix allografts, and she has undergone 8 applications thus far. The patient's history suggests that the right groin wound in the past responded to hyperbaric oxygen therapy, but required 90 such sessions. It appears as though the patient's current clinical course is mimicking that of the past, with wound healing which is very recalcitrant to conventional treatment measures. 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 She has undergone excision of melanoma from the right calf, with lymphadenectomy of the right groin in the 1969's. She subsequently required surgeries of the right thigh related to osteomyelitis, MRSA infection, and radiation injury to the right femoral artery. Ultimately, the patient required right above-knee amputation, performed in 2000. She also has a remote history of open reduction and internal fixation of a right ankle fracture. Allergies/Adverse Reactions: Allergies No Known Allergies Allergy (Verified 06/20/17 09:22) Home Medications: Ambulatory Orders Medication Instructions Recorded Famotidine 20 mg PO 06/20/17 Pravastatin [Pravachol] 20 mg PO DAILY 06/20/17 - Family History Maternal - - The patient's mother is 98 years of age and relatively healthy. The patient's father at age of 79 with a history of cardiomyopathy. Smoking Status: Former smoker Tobacco Use: Non-smoker Review of Systems Constitutional: Denies: Chills, Fever, Weight Change Eyes: Denies: Pain, Vision Change HEENT: Denies: Difficulty Hearing, Difficulty Swallowing, Sinus Congestion Cardiovascular: Denies: Chest Pain, Palpitations Respiratory: Denies: Cough, Shortness of Breath Gastrointestinal: Denies: Diarrhea, Nausea, Vomiting Genitourinary: Denies: Dysuria, Hematuria Endocrine: Denies: Heat/ Cold Intolerance, Polydipsia, Polyuria Hematologic/ Lymphatic: Denies: Easy Bruising, Easy Bleeding - Physical Exam Vital Signs Temp Pulse Resp BP 98.4 F 86 18 136/83 H 09/11/18 08:53 09/11/18 08:53 09/11/18 08:53 09/11/18 08:53 General: Alert, Oriented x3, Cooperative, No apparent distress, Well developed, Well nourished HEENT: Atraumatic, PERRLA, EOMI, Normocephalic Oral: Moist Mucosa Neck: No JVD Lungs: Normal air movement Abdomen: Non-Distended Extremities: No clubbing, No cyanosis, No edema, No Calf Tenderness, Tenderness - A well-healed right above-knee patient's stump is noted. The ulceration in the right groin is little changed in appearance, though appears to be slightly smaller in size. Dimensions are documented elsewhere. There is no sign of infection or cellulitis. There is a mild amount of bioburden. There is evidence of peripheral epithelialization., - Skin: No rashes Wound Measurements and Assessment WC - Nurse 1 - General Ulcer Measurement Start: 09/11/18 08:53 Freq: Status: Active Protocol: Activity Type Activity Date Activity User E-Sign Co-Sign Detail Recorded Client Recorded Date Recorded By Document 09/11/18 08:53 RB [id number] 09/11/18 09:00 RB 09/11/18 08:53 Wound Center Nurse 1 [Ulcer Assessment] #5 R Groin -Combined with other wound No -Current Size (cm) - Length 2.5 -Current Size (cm) - Width 0.7 -Current Size (cm) - Depth 1 -Total Square Cm 1.75 -Tunneling No -Undermining/Tunneling No -Circular Undermining No -Exudate Amt Small -Exudate Type Serosanguineous -Wound Margin Thickened -Granulation Amt Large (67-100%) -Granulation Quality [place] -Slough/Fibrin Yes -Necrosis Amt Small (1-33%) -Necrotic Tissue Type Adherent Slough -Structure Exposed N/A -Texture (Daniel-wound Skin Appearance) Scarring -Moisture (Daniel-wound Skin Appearance Assessed ) -Color (Daniel-wound Skin Appearance) Assessed -Temperature (Daniel-wound Skin No Abnormality Appearance) (Pt Warm) -Tenderness on Palpation (Daniel-wound No Skin Appearance) -Ulcer Cleansing Rinsed/ Irrigated with Saline -Foul Odor after Cleansing No -Anesthetic Used 4% Lidocaine Solution - Nurse 2 - General Ulcer CM Notes Start: 09/11/18 08:53 Freq: Status: Active Protocol: Activity Type Activity Date Activity User E-Sign Co-Sign Detail Recorded Client Recorded Date Recorded By Document 09/11/18 09:43 DV [id number] 09/11/18 09:47 DV 09/11/18 09:43 Wound Center Nurse 2 [Procedure/Treatment] -Time 09:45 -Correct Patient Yes -Correct Side, Site, Position Yes -Correct Procedure Yes -Procedure Performed Yes -Type of Procedure Debridement -Clinical Debridement Subcutaneous -Post Debridement Size (cm) - Length 0.8 -Post Debridement Size (cm) - Width 0.5 -Post Debridement Size (cm) - Depth 0.7 -Total Square Cm 0.40 -Wound/Ulcer Outcome Not Healed -Foul Odor after Cleansing Yes -Bioengineered Tissue No -Bleeding Controlled with Pressure -Offloading No -Treatment Response Procedure Tolerated Well [See Physician Procedure note for Specifics] Pain Scale: 0-10 Numeric [Pain] -Is Patient Pain Free? Yes Neurological: Cranial nerves II-XII grossly intact, Neuro grossly intact Psych/Mental Status: Normal Affect, Appropriate, Alert and oriented to time, place, person, mood and affect Debridement Note Post-Debridement Measurements/Treatment - Nurse 2 - General Ulcer CM Notes Start: 09/11/18 08:53 Freq: Status: Active Protocol: Activity Type Activity Date Activity User E-Sign Co-Sign Detail Recorded Client Recorded Date Recorded By Document 09/11/18 09:43 DV [id number] 09/11/18 09:47 DV 09/11/18 09:43 Wound Center Nurse 2 #5 R Groin -Time 09:45 -Correct Patient Yes -Correct Side, Site, Position Yes -Correct Procedure Yes -Procedure Performed Yes -Type of Procedure Debridement -Clinical Debridement Subcutaneous -Post Debridement Size (cm) - Length 0.8 -Post Debridement Size (cm) - Width 0.5 -Post Debridement Size (cm) - Depth 0.7 -Total Square Cm 0.40 -Wound/Ulcer Outcome Not Healed -Foul Odor after Cleansing Yes -Bioengineered Tissue No -Bleeding Controlled with Pressure -Offloading No -Treatment Response Procedure Tolerated Well Pain Scale: 0-10 Numeric Is Patient Pain Free? Yes Laterality: Right - Groin Type of Debridement: Excisional debridement Anesthesia Used: 5% Lidocaine Gel Depth: Down to and including healthy tissue, in the subcutaneous layer Percentage of wound debrided: 100 Instrument Used: 5mm curette Severity: Fat Layer Exposed Amount of bleeding with debridement: Mild Bleeding Controlled with: Compression and gauze Patient tolerated procedure well Following a routine excisional debridement, which was tolerated well by the patient, a 3 cm x 3.5 cm Kleindale wound matrix was applied topically to the right groin ulceration. Upon removal from its sterile packaging, the Kleindale allograft was cut and fashioned to the appropriate size and shape. It was then placed topically. Wound veil and gauze were then applied, and the site was secured using Steri-Strips. The procedure was well-tolerated. 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 In the 1970's, she was diagnosed with malignant melanoma of the right calf, with metastasis to lymph nodes in the right groin. She underwent excision of the melanoma with right groin lymphadenectomy. She was subsequently treated with a long series of radiation treatments to the right groin. During the days of her radiation treatment, it is suspected that the radiation techniques were somewhat early in their evolution, and quite likely that the patient received massive doses of radiation exposure, exceeding doses which would be considered appropriate today, with techniques which are primitive by today's standards. As result, the patient has developed soft tissue radiation injury, and has previously been treated at our wound center in the past with a series of approximately 90 hyperbaric oxygen therapy treatments, in 2011. She presented with recurrence of soft tissue radionecrosis in the right groin. Hyperbaric oxygen therapy treatments were initiated, and the patient has undergone a series of 90 hyperbaric oxygen treatment sessions. She has shown mild benefit from the hyperbaric oxygen treatments. At this time, there is no clinical evidence of infection or cellulitis in the daniel-ulcer area. However, the patient is responding very slowly to the variety of conventional treatment measures which have been implemented. In review of the patient's past history, such has been the case previously, as each treatment course has been rather protracted and lengthy in nature to achieve ultimate healing. The patient was seen and evaluated in consultation at [facility] recently (Dr. Harding), which had been arranged by our facility. We have received medical records related to the patient's recent visit at [facility]. Judging from the impression at the conclusion of her consultation, no significant new recommendations have been made. Patient has been advised to keep the wound area clean and dry, and to change the Mary dressing daily. She has been educated in the appropriate diet. Recent culture results were negative. Plan: The patient has been the recipient of 10 EpiFix applications. A request for preauthorization of PuraPly was denied. Thus, we have used Kleindale allograft today, with anticipation that we will continue to do so in the next few weeks. Today's application was of the third such Kleindale allograft application. The patient is to leave her current allograft and dressing in place, and will return in 1 week for reassessment. No new recommendations of significance were elucidated recently by the wound care facility at [facility], where a second opinion was sought. The patient is to continue with a nutritious diet. Biopsies of the ulceration have been obtained, and the results were negative for malignancy. A more aggressive approach which might include surgical excision/debridement appears ill-advised, given the patient's history of extensive radiation to this area, and anticipation that healing will likely be impaired as a result. Several Plastic Surgery consultations in the past have culminated in a declination for aggressive debridement or flap reconstruction. Influenza vaccine was not administered today. The patient is not a smoker. She stands 5 feet 7 inches tall. She weighs 198 pounds. Her BMI is 31, which places her in a class I weight category. Weight loss has been recommended. She is to collaborate with her primary care physician in this regard.
[2018-09-18 08:40] VITALS: BP 164/98; PULSE 90; RESP 18; TEMP 35.9; BMI 68.3
--- NOTE | 2018-09-18 09:08 | PCM.WC.HP ---
(1) History of uterine cancer Status: Chronic Current Visit: No Code(s): Z85.42 - Personal history of malignant neoplasm of other parts of uterus (2) History of melanoma Status: Chronic Current Visit: Yes Code(s): Z85.820 - Personal history of malignant melanoma of skin (3) Hyperlipidemia Status: Chronic Current Visit: No Code(s): E78.5 - Hyperlipidemia, unspecified (4) GERD (gastroesophageal reflux disease) Status: Chronic Current Visit: No Code(s): K21.9 - Gastro-esophageal reflux disease without esophagitis (5) Ulcer of right groin Status: Chronic Current Visit: Yes Qualifiers: Non-pressure ulcer stage: with fat layer exposed Code(s): L98.499 - Non-pressure chronic ulcer of skin of other sites with unspecified severity (6) Obesity (BMI 30.0-34.9) Status: Chronic Current Visit: No Code(s): E66.9 - Obesity, unspecified (7) Amputee, above knee Status: Chronic Current Visit: Yes Qualifiers: Laterality: right Code(s): Z89.619 - Acquired absence of unspecified leg above knee (8) Soft tissue radionecrosis Status: Chronic Current Visit: Yes Code(s): L59.8 - Other specified disorders of the skin and subcutaneous tissue related to radiation; Y84.2 - Radiological procedure and radiotherapy as the cause of abnormal reaction of the patient, or of later complication, without mention of misadventure at the time of the procedure (9) soft tissue radiation injury Status: Chronic Current Visit: Yes History of Present Illness Chief Complaint: 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 The patient underwent excision of her melanoma with lymphadenectomy in the right groin. She also underwent lengthy radiation treatments at the [facility] in [place], [place]. Melanoma recurred, and the patient was subsequently treated with monoclonal antibodies in 1984. 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 In 2012, the patient was treated in our wound center for ulcerations of the right upper thigh and groin related to soft tissue radiation necrosis. Treatment included local ulcer care and hyperbaric oxygen therapy. She underwent a total of nearly 90 treatments of hyperbaric oxygen therapy. It is known that she tolerated the therapies well, and derived significant benefit. She relates no history of claustrophobia, or other complications related to the hyperbaric oxygen therapy treatments. She has no history of barotrauma to lungs, ears, etc. Her medical history has been reviewed, without any evidence of contraindications to hyperbaric oxygen therapy. Hyperbaric oxygen therapy has been administered for nearly 90 treatment sessions. We are currently using EpiFix allografts, and she has undergone 8 applications thus far. The patient's history suggests that the right groin wound in the past responded to hyperbaric oxygen therapy, but required 90 such sessions. It appears as though the patient's current clinical course is mimicking that of the past, with wound healing which is very recalcitrant to conventional treatment measures. 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 She has undergone excision of melanoma from the right calf, with lymphadenectomy of the right groin in the 1969's. She subsequently required surgeries of the right thigh related to osteomyelitis, MRSA infection, and radiation injury to the right femoral artery. Ultimately, the patient required right above-knee amputation, performed in 2000. She also has a remote history of open reduction and internal fixation of a right ankle fracture. Allergies/Adverse Reactions: Allergies No Known Allergies Allergy (Verified 06/20/17 09:22) Home Medications: Ambulatory Orders Medication Instructions Recorded Famotidine 20 mg PO 06/20/17 Pravastatin [Pravachol] 20 mg PO DAILY 06/20/17 - Family History Maternal - - The patient's mother is 98 years of age and relatively healthy. The patient's father at age of 79 with a history of cardiomyopathy. Smoking Status: Former smoker Tobacco Use: Non-smoker Review of Systems Constitutional: Denies: Chills, Fever, Weight Change Eyes: Denies: Pain, Vision Change HEENT: Denies: Difficulty Hearing, Difficulty Swallowing, Sinus Congestion Cardiovascular: Denies: Chest Pain, Palpitations Respiratory: Denies: Cough, Shortness of Breath Gastrointestinal: Denies: Diarrhea, Nausea, Vomiting Genitourinary: Denies: Dysuria, Hematuria Endocrine: Denies: Heat/ Cold Intolerance, Polydipsia, Polyuria Hematologic/ Lymphatic: Denies: Easy Bruising, Easy Bleeding - Physical Exam Vital Signs Temp Pulse Resp BP 96.6 F L 90 18 164/98 H 09/18/18 08:40 09/18/18 08:40 09/18/18 08:40 09/18/18 08:40 General: Alert, Oriented x3, Cooperative, No apparent distress, Well developed, Well nourished HEENT: Atraumatic, PERRLA, EOMI, Normocephalic Oral: Moist Mucosa Neck: No JVD Lungs: Normal air movement Abdomen: Non-Distended Extremities: No clubbing, No cyanosis, No edema, No Calf Tenderness, - - A well-healed right above-knee amputation stump is noted. The ulceration in the right groin is little changed. There is been no significant change in size or appearance. Dimensions are documented elsewhere. There is no sign of infection or cellulitis. There is only a small amount of bioburden. The ulceration appears to have healed superiorly and inferiorly, leaving a residual open wound centrally, which demonstrates poorly beveled edges. Wound Measurements and Assessment WC - Nurse 1 - General Ulcer Measurement Start: 09/11/18 08:53 Freq: Status: Active Protocol: Activity Type Activity Date Activity User E-Sign Co-Sign Detail Recorded Client Recorded Date Recorded By Document 09/18/18 08:40 DL [id number] 09/18/18 08:43 DL 09/18/18 08:40 Wound Center Nurse 1 [Ulcer Assessment] #5 R Groin -Current Size (cm) - Length 0.7 -Current Size (cm) - Width 0.8 -Current Size (cm) - Depth 1.1 -Total Square Cm 0.56 -Photo Taken No -Exudate Amt Small -Exudate Type Serosanguineous -Wound Margin Thickened -Granulation Amt Medium (34-66%) -Granulation Quality Pale [place] -Necrosis Amt Medium (34-66%) -Necrotic Tissue Type Adherent Slough -Structure Exposed N/A -Texture (Daniel-wound Skin Appearance) Scarring -Moisture (Daniel-wound Skin Appearance Maceration ) -Color (Daniel-wound Skin Appearance) Rubor -Ulcer Cleansing Rinsed/ Irrigated with Saline -Foul Odor after Cleansing No -Anesthetic Used 4% Lidocaine Solution - Nurse 2 - General Ulcer CM Notes Start: 09/11/18 08:53 Freq: Status: Active Protocol: Activity Type Activity Date Activity User E-Sign Co-Sign Detail Recorded Client Recorded Date Recorded By Document 09/18/18 08:49 DV [id number] 09/18/18 09:01 DV 09/18/18 08:49 Wound Center Nurse 2 [Procedure/Treatment] -Time 08:50 -Correct Patient Yes -Correct Side, Site, Position Yes -Correct Procedure Yes -Procedure Performed Yes -Type of Procedure Debridement -Clinical Debridement Subcutaneous -Post Debridement Size (cm) - Length 0.8 -Post Debridement Size (cm) - Width 0.8 -Post Debridement Size (cm) - Depth 1.1 -Total Square Cm 0.64 -Wound/Ulcer Outcome Not Healed -Ulcer Cleansing Rinsed/ Irrigated with Saline -Foul Odor after Cleansing No -Bioengineered Tissue No -Bleeding Controlled with Pressure -Offloading No -Treatment Response Procedure Tolerated Well [See Physician Procedure note for Specifics] Pain Scale: 0-10 Numeric [Pain] -Is Patient Pain Free? Yes Musculoskeletal: No Muscle Wasting Neurological: Cranial nerves II-XII grossly intact, Neuro grossly intact Psych/Mental Status: Normal Affect, Appropriate, Alert and oriented to time, place, person, mood and affect Debridement Note Post-Debridement Measurements/Treatment - Nurse 2 - General Ulcer CM Notes Start: 09/11/18 08:53 Freq: Status: Active Protocol: Activity Type Activity Date Activity User E-Sign Co-Sign Detail Recorded Client Recorded Date Recorded By Document 09/11/18 09:43 DV [id number] 09/11/18 09:47 DV Document 09/18/18 08:49 DV [id number] 09/18/18 09:01 DV 09/11/18 09/18/18 09:43 08:49 Wound Center Nurse 2 #5 R Groin -Time 09:45 08:50 -Correct Patient Yes Yes -Correct Side, Site, Position Yes Yes -Correct Procedure Yes Yes -Procedure Performed Yes Yes -Type of Procedure Debridement Debridement -Clinical Debridement Subcutaneous Subcutaneous -Post Debridement Size (cm) - Length 0.8 0.8 -Post Debridement Size (cm) - Width 0.5 0.8 -Post Debridement Size (cm) - Depth 0.7 1.1 -Total Square Cm 0.40 0.64 -Wound/Ulcer Outcome Not Healed Not Healed -Ulcer Cleansing Rinsed/ Irrigated with Saline -Foul Odor after Cleansing Yes No -Bioengineered Tissue No No -Bleeding Controlled with Pressure Pressure -Offloading No No -Treatment Response Procedure Procedure Tolerated Well Tolerated Well Pain Scale: 0-10 Numeric Is Patient Pain Free? Yes Yes Laterality: Right - Groin Type of Debridement: Excisional debridement Anesthesia Used: 5% Lidocaine Gel Depth: Down to and including healthy tissue, in the subcutaneous layer Percentage of wound debrided: 100 Instrument Used: 3mm curette Severity: Fat Layer Exposed Amount of bleeding with debridement: Mild Bleeding Controlled with: Compression and gauze Patient tolerated procedure well Following a routine excisional debridement, which was well tolerated by the patient, a 3 cm x 3.5 cm [employer] skin substitute was applied. Upon removal from its sterile packaging, the skin substitute was cut to the appropriate size and shape, and was placed within the depths of the ulceration. Wound veil and gauze were then applied, and were secured in place using Steri-Strips. The entire procedure was well-tolerated. 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 In the 1970's, she was diagnosed with malignant melanoma of the right calf, with metastasis to lymph nodes in the right groin. She underwent excision of the melanoma with right groin lymphadenectomy. She was subsequently treated with a long series of radiation treatments to the right groin. During the days of her radiation treatment, it is suspected that the radiation techniques were somewhat early in their evolution, and quite likely that the patient received massive doses of radiation exposure, exceeding doses which would be considered appropriate today, with techniques which are primitive by today's standards. As result, the patient has developed soft tissue radiation injury, and has previously been treated at our wound center in the past with a series of approximately 90 hyperbaric oxygen therapy treatments, in 2011. She presented with recurrence of soft tissue radionecrosis in the right groin. Hyperbaric oxygen therapy treatments were initiated, and the patient has undergone a series of 90 hyperbaric oxygen treatment sessions. She has shown mild benefit from the hyperbaric oxygen treatments. At this time, there is no clinical evidence of infection or cellulitis in the daniel-ulcer area. However, the patient is responding very slowly to the variety of conventional treatment measures which have been implemented. In review of the patient's past history, such has been the case previously, as each treatment course has been rather protracted and lengthy in nature to achieve ultimate healing. The patient was seen and evaluated in consultation at [facility] recently (Dr. Harding), which had been arranged by our facility. We have received medical records related to the patient's recent visit at [facility]. Judging from the impression at the conclusion of her consultation, no significant new recommendations have been made. She has been educated in the appropriate diet. Most recent culture results were negative. Plan: The patient has been the recipient of 10 EpiFix applications. A request for preauthorization of PuraPly was denied. Thus, we have used [employer] allograft today. Today's application was of the fourth such [employer] allograft application. The patient is to leave her current allograft and dressing in place, and will return in 1 week for reassessment. No new recommendations of significance were elucidated recently by the wound care facility at [facility], where a second opinion was sought. The patient is to continue with a nutritious diet. Biopsies of the ulceration have been obtained, and the results were negative for malignancy. A more aggressive approach which might include surgical excision/debridement appears ill-advised, given the patient's history of extensive radiation to this area, and anticipation that healing will likely be impaired as a result. Several Plastic Surgery consultations in the past have culminated in a declination for aggressive debridement or flap reconstruction. Consideration may be given to the use of negative pressure therapy, which has not been a recently used modality. We will seek preauthorization. Influenza vaccine was not administered today. The patient is not a smoker. She stands 5 feet 7 inches tall. She weighs 198 pounds. Her BMI is 31, which places her in a class I weight category. Weight loss has been recommended. She is to collaborate with her primary care physician in this regard.
--- NOTE | 2018-09-18 09:12 | HP.PCM_ITS ---
(1) History of uterine cancer Status: Chronic Current Visit: No Code(s): Z85.42 - Personal history of malignant neoplasm of other parts of uterus (2) History of melanoma Status: Chronic Current Visit: Yes Code(s): Z85.820 - Personal history of malignant melanoma of skin (3) Hyperlipidemia Status: Chronic Current Visit: No Code(s): E78.5 - Hyperlipidemia, unspecified (4) GERD (gastroesophageal reflux disease) Status: Chronic Current Visit: No Code(s): K21.9 - Gastro-esophageal reflux disease without esophagitis (5) Ulcer of right groin Status: Chronic Current Visit: Yes Qualifiers: Non-pressure ulcer stage: with fat layer exposed Code(s): L98.499 - Non-pressure chronic ulcer of skin of other sites with unspecified severity (6) Obesity (BMI 30.0-34.9) Status: Chronic Current Visit: No Code(s): E66.9 - Obesity, unspecified (7) Amputee, above knee Status: Chronic Current Visit: Yes Qualifiers: Laterality: right Code(s): Z89.619 - Acquired absence of unspecified leg above knee (8) Soft tissue radionecrosis Status: Chronic Current Visit: Yes Code(s): L59.8 - Other specified disorders of the skin and subcutaneous tissue related to radiation; Y84.2 - Radiological procedure and radiotherapy as the cause of abnormal reaction of the patient, or of later complication, without mention of misadventure at the time of the procedure (9) soft tissue radiation injury Status: Chronic Current Visit: Yes History of Present Illness Chief Complaint: 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 The patient underwent excision of her melanoma with lymphadenect sharmaine in the right groin. She also underwent lengthy radiation treatments at the [facility] in [place], [place]. Melanoma recurred, and the patient was subsequently treated with monoclonal antibodies in 1984. 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 Treatment included local ulcer care and hyperbaric oxygen therapy. She underwent a total of nearly 90 treatments of hyperbaric oxygen therapy. It is known that she tolerated the therapies well, and derived significant benefit. She relates no history of claustrophobia, or other complications related to the hyperbaric oxygen therapy treatments. She has no history of barotrauma to lungs, ears, etc. Her medical history has been reviewed, without any evidence of contraindications to hyperbaric oxygen therapy. Hyperbaric oxygen therapy has been administered for nearly 90 treatment sessions. We are currently using EpiFix allografts, and she has undergone 8 applications thus far. The patient's history suggests that the right groin wound in the past responded to hyperbaric oxygen therapy, but required 90 such sessions. It appears as though the patient's current clinical course is mimicking that of the past, with wound healing which is very recalcitrant to conventional treatment measures. 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 She has undergone excision of melanoma from the right calf, with lymphadenectomy of the right groin in the 1969's. She subsequently required surgeries of the right thigh related to osteomyelitis, MRSA infection, and radiation injury to the right femoral artery. Ultimately, the patient required right above-knee amputation, performed in 2000. She also has a remote history of open reduction and internal fixation of a right ankle fracture. Allergies/Adverse Reactions: Allergies No Known Allergies Allergy (Verified 06/20/17 09:22) Home Medications: Ambulatory Orders Medication Instructions Recorded Famotidine 20 mg PO 06/20/17 Pravastatin [Pravachol] 20 mg PO DAILY 06/20/17 - Family History Maternal - - The patient's mother is 98 years of age and relatively healthy. The patient's father at age of 79 with a history of cardiomyopathy. Smoking Status: Former smoker Tobacco Use: Non-smoker Review of Systems Constitutional: Denies: Chills, Fever, Weight Change Eyes: Denies: Pain, Vision Change HEENT: Denies: Difficulty Hearing, Difficulty Swallowing, Sinus Congestion Cardiovascular: Denies: Chest Pain, Palpitations Respiratory: Denies: Cough, Shortness of Breath Gastrointestinal: Denies: Diarrhea, Nausea, Vomiting Genitourinary: Denies: Dysuria, Hematuria Endocrine: Denies: Heat/ Cold Intolerance, Polydipsia, Polyuria Hematologic/ Lymphatic: Denies: Easy Bruising, Easy Bleeding - Physical Exam Vital Signs Temp Pulse Resp BP 96.6 F L 90 18 164/98 H 09/18/18 08:40 09/18/18 08:40 09/18/18 08:40 09/18/18 08:40 General: Alert, Oriented x3, Cooperative, No apparent distress, Well developed, Well nourished HEENT: Atraumatic, PERRLA, EOMI, Normocephalic Oral: Moist Mucosa Neck: No JVD Lungs: Normal air movement Abdomen: Non-Distended Extremities: No clubbing, No cyanosis, No edema, No Calf Tenderness, - - A well- healed right above-knee amputation stump is noted. The ulceration in the right groin is little changed. There is been no significant change in size or appearance. Dimensions are documented elsewhere. There is no sign of infection or cellulitis. There is only a small amount of bioburden. The ulceration appears to have healed superiorly and inferiorly, leaving a residual open wound centrally, which demonstrates poorly beveled edges. Wound Measurements and Assessment WC - Nurse 1 - General Ulcer Measurement Start: 09/11/18 08:53 Freq: Status: Active Protocol: Activity Type Activity Date Activity User E-Sign Co-Sign Detail Recorded Client Recorded Date Recorded By Document 09/18/18 08:40 DL [id number] 09/18/18 08:43 DL 09/18/18 08:40 Wound Center Nurse 1 [Ulcer Assessment] #5 R Groin -Current Size (cm) - Length 0.7 -Current Size (cm) - Width 0.8 -Current Size (cm) - Depth 1.1 -Total Square Cm 0.56 -Photo Taken No -Exudate Amt Small -Exudate Type Serosanguineous -Wound Margin Thickened -Granulation Amt Medium (34-66%) -Granulation Quality Pale [place] -Necrosis Amt Medium (34-66%) -Necrotic Tissue Type Adherent Slough -Structure Exposed N/A -Texture (Daniel-wound Skin Appearance) Scarring -Moisture (Daniel-wound Skin Appearance Maceration ) -Color (Daniel-wound Skin Appearance) Rubor -Ulcer Cleansing Rinsed/ Irrigated with Saline -Foul Odor after Cleansing No -Anesthetic Used 4% Lidocaine Solution - Nurse 2 - General Ulcer CM Notes Start: 09/11/18 08:53 Freq: Status: Active Protocol: Activity Type Activity Date Activity User E-Sign Co-Sign Detail Recorded Client Recorded Date Recorded By Document 09/18/18 08:49 DV [id number] 09/18/18 09:01 DV 09/18/18 08:49 Wound Center Nurse 2 [Procedure/Treatment] -Time 08:50 -Correct Patient Yes -Correct Side, Site, Position Yes -Correct Procedure Yes -Procedure Performed Yes -Type of Procedure Debridement -Clinical Debridement Subcutaneous -Post Debridement Size (cm) - Length 0.8 -Post Debridement Size (cm) - Width 0.8 -Post Debridement Size (cm) - Depth 1.1 -Total Square Cm 0.64 -Wound/Ulcer Outcome Not Healed -Ulcer Cleansing Rinsed/ Irrigated with Saline -Foul Odor after Cleansing No -Bioengineered Tissue No -Bleeding Controlled with Pressure -Offloading No -Treatment Response Procedure Tolerated Well [See Physician Procedure note for Specifics] Pain Scale: 0-10 Numeric [Pain] -Is Patient Pain Free? Yes Musculoskeletal: No Muscle Wasting Neurological: Cranial nerves II-XII grossly intact, Neuro grossly intact Psych/Mental Status: Normal Affect, Appropriate, Alert and oriented to time, place, person, mood and affect Debridement Note Post-Debridement Measurements/Treatment - Nurse 2 - General Ulcer CM Notes Start: 09/11/18 08:53 Freq: Status: Active Protocol: Activity Type Activity Date Activity User E-Sign Co-Sign Detail Recorded Client Recorded Date Recorded By Document 09/11/18 09:43 DV [id number] 09/11/18 09:47 DV Document 09/18/18 08:49 DV [id number] 09/18/18 09:01 DV 09/11/18 09/18/18 09:43 08:49 Wound Center Nurse 2 #5 R Groin -Time 09:45 08:50 -Correct Patient Yes Yes -Correct Side, Site, Position Yes Yes -Correct Procedure Yes Yes -Procedure Performed Yes Yes -Type of Procedure Debridement Debridement -Clinical Debridement Subcutaneous Subcutaneous -Post Debridement Size (cm) - Length 0.8 0.8 -Post Debridement Size (cm) - Width 0.5 0.8 -Post Debridement Size (cm) - Depth 0.7 1.1 -Total Square Cm 0.40 0.64 -Wound/Ulcer Outcome Not Healed Not Healed -Ulcer Cleansing Rinsed/ Irrigated with Saline -Foul Odor after Cleansing Yes No -Bioengineered Tissue No No -Bleeding Controlled with Pressure Pressure -Offloading No No -Treatment Response Procedure Procedure Tolerated Well Tolerated Well Pain Scale: 0-10 Numeric Is Patient Pain Free? Yes Yes Laterality: Right - Groin Type of Debridement: Excisional debridement Anesthesia Used: 5% Lidocaine Gel Depth: Down to and including healthy tissue, in the subcutaneous layer Percentage of wound debrided: 100 Instrument Used: 3mm curette Severity: Fat Layer Exposed Amount of bleeding with debridement: Mild Bleeding Controlled with: Compression and gauze Patient tolerated procedure well Following a routine excisional debridement, which was well tolerated by the patient, a 3 cm x 3.5 cm Ashley skin substitute was applied. Upon removal from its sterile packaging, the skin substitute was cut to the appropriate size and shape, and was placed within the depths of the ulceration. Wound veil and gauze were then applied, and were secured in place using Steri-Strips. The entire procedure was well-tolerated. 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 In the 1969's, she was diagnosed with malignant melanoma of the right calf, with metastasis to lymph nodes in the right groin. She underwent excision of the melanoma with right groin lymphadenectomy. She was subsequently treated with a long series of radiation treatments to the right groin. During the days of her radiation treatment, it is suspected that the radiation techniques were somewhat early in their evolution, and quite likely that the patient received massive doses of radiation exposure, exceeding doses which would be considered appropriate today, with techniques which are primitive by today's standards. As result, the patient has developed soft tissue radiation injury, and has previously been treated at our wound center in the past with a series of approximately 90 hyperbaric oxygen therapy treatments, in 2011. She presented with recurrence of soft tissue radionecrosis in the right groin. Hyperbaric oxygen therapy treatments were initiated, and the patient has undergone a series of 90 hyperbaric oxygen treatment sessions. She has shown mild benefit from the hyperbaric oxygen treatments. At this time, there is no clinical evidence of infection or cellulitis in the daniel-ulcer area. However, the patient is responding very slowly to the variety of conventional treatment measures which have been implemented. In review of the patient's past history, such has been the case previously, as each treatment course has been rather protracted and lengthy in nature to achieve ultimate healing. The patient was seen and evaluated in consultation at [facility] recently (Dr. Harding), which had been arranged by our facility. We have received medical records related to the patient's recent visit at [facility]. Judging from the impression at the conclusion of her consultation, no significant new recommendations have been made. She has been educated in the appropriate diet. Most recent culture results were negative. Plan: The patient has been the recipient of 10 EpiFix applications. A request for preauthorization of PuraPly was denied. Thus, we have used Ashley allograft today. Today's application was of the fourth such Ashley allograft application. The patient is to leave her current allograft and dressing in place, and will return in 1 week for reassessment. No new recommendations of significance were elucidated recently by the wound care facility at [facility], where a second opinion was sought. The patient is to continue with a nutritious diet. Biopsies of the ulceration have been obtained, and the results were negative for malignancy. A more aggressive approach which might include surgical excision/debridement appears ill-advised, given the patient's history of extensive radiation to this area, and anticipation that healing will likely be impaired as a result. Several Plastic Surgery consultations in the past have culminated in a declination for aggressive debridement or flap reconstruction. Consideration may be given to the use of negative pressure t herapy, which has not been a recently used modality. We will seek preauthorization. Influenza vaccine was not administered today. The patient is not a smoker. She stands 5 feet 7 inches tall. She weighs 198 pounds. Her BMI is 31, which places her in a class I weight category. Weight loss has been recommended. She is to collaborate with her primary care physician in this regard.
== END 2018-10-07 23:59 ==
LOC: WC 08:30
PROVIDERS: Family Provider Family Medicine; PCP Family Medicine; Referring Provider Surgery; Visit Provider Surgery
DX: L59.8 Other specified disorders of the skin and subcutaneous tissue related to radiation (principal); Y84.2 Radiological procedure and radiotherapy as the cause of abnormal reaction of the patient, or of later complication, without mention of misadventure at the time of the procedure; Z85.42 Personal history of malignant neoplasm of other parts of uterus; L98.492 Non-pressure chronic ulcer of skin of other sites with fat layer exposed; Z85.820 Personal history of malignant melanoma of skin; E78.5 Hyperlipidemia, unspecified; Z89.619 Acquired absence of unspecified leg above knee; E66.9 Obesity, unspecified; Z71.3 Dietary counseling and surveillance; K21.9 Gastro-esophageal reflux disease without esophagitis; Z86.14 Personal history of Methicillin resistant Staphylococcus aureus infection; Z87.891 Personal history of nicotine dependence
CPT/HCPCS: 11042

== ENCOUNTER 2018-11-06 08:30 | Outpatient (RCR) | payer OTHER, SELFPAY ==
[2018-10-08 00:45] VITALS: BP 164/98; PULSE 90; RESP 18; TEMP 35.9
[2018-10-08 13:34] VITALS: BP 152/80; PULSE 101; RESP 18; TEMP 35.9; BMI 68.3
--- NOTE | 2018-10-08 15:12 | PCM.WC.HP ---
(1) History of uterine cancer Status: Chronic Current Visit: No Code(s): Z85.42 - Personal history of malignant neoplasm of other parts of uterus (2) History of melanoma Status: Chronic Current Visit: Yes Code(s): Z85.820 - Personal history of malignant melanoma of skin (3) Hyperlipidemia Status: Chronic Current Visit: No Code(s): E78.5 - Hyperlipidemia, unspecified (4) GERD (gastroesophageal reflux disease) Status: Chronic Current Visit: No Code(s): K21.9 - Gastro-esophageal reflux disease without esophagitis (5) Ulcer of right groin Status: Chronic Current Visit: Yes Qualifiers: Non-pressure ulcer stage: with fat layer exposed Code(s): L98.499 - Non-pressure chronic ulcer of skin of other sites with unspecified severity (6) Obesity (BMI 30.0-34.9) Status: Chronic Current Visit: No Code(s): E66.9 - Obesity, unspecified (7) Amputee, above knee Status: Chronic Current Visit: No Qualifiers: Code(s): Z89.619 - Acquired absence of unspecified leg above knee (8) Soft tissue radionecrosis Status: Chronic Current Visit: Yes Code(s): L59.8 - Other specified disorders of the skin and subcutaneous tissue related to radiation; Y84.2 - Radiological procedure and radiotherapy as the cause of abnormal reaction of the patient, or of later complication, without mention of misadventure at the time of the procedure (9) soft tissue radiation injury Status: Chronic Current Visit: Yes History of Present Illness Chief Complaint: 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 The patient underwent excision of her melanoma with lymphadenectomy in the right groin. She also underwent lengthy radiation treatments at the [facility] in [place], [place]. Melanoma recurred, and the patient was subsequently treated with monoclonal antibodies in 1984. 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 Treatment included local ulcer care and hyperbaric oxygen therapy. She underwent a total of nearly 90 treatments of hyperbaric oxygen therapy. It is known that she tolerated the therapies well, and derived significant benefit. She relates no history of claustrophobia, or other complications related to the hyperbaric oxygen therapy treatments. She has no history of barotrauma to lungs, ears, etc. Her medical history has been reviewed, without any evidence of contraindications to hyperbaric oxygen therapy. Hyperbaric oxygen therapy has been administered for nearly 90 treatment sessions. We are currently using EpiFix allografts, and she has undergone 8 applications thus far. The patient's history suggests that the right groin wound in the past responded to hyperbaric oxygen therapy, but required 90 such sessions. It appears as though the patient's current clinical course is mimicking that of the past, with wound healing which is very recalcitrant to conventional treatment measures. 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 She has undergone excision of melanoma from the right calf, with lymphadenectomy of the right groin in the 1969's. She subsequently required surgeries of the right thigh related to osteomyelitis, MRSA infection, and radiation injury to the right femoral artery. Ultimately, the patient required right above-knee amputation, performed in 2000. She also has a remote history of open reduction and internal fixation of a right ankle fracture. Allergies/Adverse Reactions: Allergies No Known Allergies Allergy (Verified 06/20/17 09:22) Home Medications: Ambulatory Orders Medication Instructions Recorded Famotidine 20 mg PO 06/20/17 Pravastatin [Pravachol] 20 mg PO DAILY 06/20/17 - Family History Maternal - - The patient's mother is 98 years of age and relatively healthy. The patient's father at age of 79 with a history of cardiomyopathy. Smoking Status: Former smoker Tobacco Use: Non-smoker Review of Systems Constitutional: Denies: Chills, Fever, Weight Change Eyes: Denies: Pain, Vision Change HEENT: Denies: Difficulty Hearing, Difficulty Swallowing, Sinus Congestion Cardiovascular: Denies: Chest Pain, Palpitations Respiratory: Denies: Cough, Shortness of Breath Gastrointestinal: Denies: Diarrhea, Nausea, Vomiting Genitourinary: Denies: Dysuria, Hematuria Endocrine: Denies: Heat/ Cold Intolerance, Polydipsia, Polyuria Hematologic/ Lymphatic: Denies: Easy Bruising, Easy Bleeding - Physical Exam Vital Signs Temp Pulse Resp BP 96.6 F L 101 H 18 152/80 H 10/08/18 13:34 10/08/18 13:34 10/08/18 13:34 10/08/18 13:34 General: Alert, Oriented x3, Cooperative, No apparent distress, Well developed, Well nourished HEENT: Atraumatic, PERRLA, EOMI, Normocephalic Oral: Moist Mucosa Neck: No JVD Lungs: Normal air movement Abdomen: Non-Distended Extremities: No clubbing, No cyanosis, No edema, No Calf Tenderness, - - The patient's right above-knee amputation stump remains well healed. The ulceration in the right groin is little changed in appearance. The ulceration is healed superiorly and inferiorly, leaving an open portion of the ulceration centrally located, the dimensions of which are documented elsewhere. There is no sign of obvious infection or cellulitis. There is a mild amount of bioburden. Wound Measurements and Assessment WC - Nurse 1 - General Ulcer Measurement Start: 10/08/18 13:34 Freq: Status: Active Protocol: Activity Type Activity Date Activity User E-Sign Co-Sign Detail Recorded Client Recorded Date Recorded By Document 10/08/18 13:34 AN [id number] 10/08/18 13:49 AN 10/08/18 13:34 Wound Center Nurse 1 [Ulcer Assessment] #5 R Groin -Current Size (cm) - Length 0.7 -Current Size (cm) - Width 0.8 -Current Size (cm) - Depth 1.0 -Total Square Cm 0.56 -Photo Taken No -Tunneling Yes -Tunneling Position (O'clock) 10 -Tunneling Distance (cm) 1.7 -Circular Undermining No -Classification - Thickness Full Thickness without Exposed Support Structure -Exudate Amt Small -Exudate Type Serosanguineous -Wound Margin Fibrotic Scar, Thickened Scar -Granulation Amt Medium (34-66%) -Granulation Quality [place] -Slough/Fibrin Yes -Necrosis Amt Small (1-33%) -Necrotic Tissue Type Adherent Slough -Structure Exposed None/Limited to Skin Breakdown -Texture (Daniel-wound Skin Appearance) Assessed Scarring -Moisture (Daniel-wound Skin Appearance Assessed ) Maceration -Color (Daniel-wound Skin Appearance) Assessed -Temperature (Daniel-wound Skin No Abnormality Appearance) (Pt Warm) -Tenderness on Palpation (Daniel-wound No Skin Appearance) -Ulcer Cleansing Rinsed/ Irrigated with Saline -Foul Odor after Cleansing No -Anesthetic Used 4% Lidocaine Solution WC - Nurse 2 - General Ulcer CM Notes Start: 10/08/18 13:34 Freq: Status: Active Protocol: Activity Type Activity Date Activity User E-Sign Co-Sign Detail Recorded Client Recorded Date Recorded By Document 10/08/18 15:05 DV [id number] 10/08/18 15:07 DV 10/08/18 15:05 Wound Center Nurse 2 [Procedure/Treatment] -Time 15:05 -Correct Patient Yes -Correct Side, Site, Position Yes -Correct Procedure Yes -Procedure Performed Yes -Type of Procedure Debridement -Clinical Debridement Subcutaneous -Post Debridement Size (cm) - Length 1.0 -Post Debridement Size (cm) - Width 1.0 -Post Debridement Size (cm) - Depth 1.7 -Total Square Cm 1.00 -Wound/Ulcer Outcome Not Healed -Ulcer Cleansing Rinsed/ Irrigated with Saline -Foul Odor after Cleansing No -Bioengineered Tissue No -Bleeding Controlled with Pressure -Offloading No -Treatment Response Procedure Tolerated Well [See Physician Procedure note for Specifics] Pain Scale: 0-10 Numeric [Pain] -Is Patient Pain Free? Yes Musculoskeletal: No Muscle Wasting Neurological: Cranial nerves II-XII grossly intact, Neuro grossly intact Psych/Mental Status: Normal Affect, Appropriate, Alert and oriented to time, place, person, mood and affect Debridement Note Post-Debridement Measurements/Treatment - Nurse 2 - General Ulcer CM Notes Start: 10/08/18 13:34 Freq: Status: Active Protocol: Activity Type Activity Date Activity User E-Sign Co-Sign Detail Recorded Client Recorded Date Recorded By Document 10/08/18 15:05 DV [id number] 10/08/18 15:07 DV 10/08/18 15:05 Wound Center Nurse 2 #5 R Groin -Time 15:05 -Correct Patient Yes -Correct Side, Site, Position Yes -Correct Procedure Yes -Procedure Performed Yes -Type of Procedure Debridement -Clinical Debridement Subcutaneous -Post Debridement Size (cm) - Length 1.0 -Post Debridement Size (cm) - Width 1.0 -Post Debridement Size (cm) - Depth 1.7 -Total Square Cm 1.00 -Wound/Ulcer Outcome Not Healed -Ulcer Cleansing Rinsed/ Irrigated with Saline -Foul Odor after Cleansing No -Bioengineered Tissue No -Bleeding Controlled with Pressure -Offloading No -Treatment Response Procedure Tolerated Well Pain Scale: 0-10 Numeric Is Patient Pain Free? 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 In the 1970's, she was diagnosed with malignant melanoma of the right calf, with metastasis to lymph nodes in the right groin. She underwent excision of the melanoma with right groin lymphadenectomy. She was subsequently treated with a long series of radiation treatments to the right groin. During the days of her radiation treatment, it is suspected that the radiation techniques were somewhat early in their evolution, and quite likely that the patient received massive doses of radiation exposure, exceeding doses which would be considered appropriate today, with techniques which are primitive by today's standards. As result, the patient has developed soft tissue radiation injury, and has previously been treated at our wound center in the past with a series of approximately 90 hyperbaric oxygen therapy treatments, in 2011. She presented with recurrence of soft tissue radionecrosis in the right groin. Hyperbaric oxygen therapy treatments were initiated, and the patient has undergone a series of 90 hyperbaric oxygen treatment sessions. She has shown mild benefit from the hyperbaric oxygen treatments. At this time, there is no clinical evidence of infection or cellulitis in the daniel-ulcer area. However, the patient is responding very slowly to the variety of conventional treatment measures which have been implemented. In review of the patient's past history, such has been the case previously, as each treatment course has been rather protracted and lengthy in nature to achieve ultimate healing. The patient was seen and evaluated in consultation at [facility] recently (Dr. Harding), which had been arranged by our facility. We have received medical records related to the patient's recent visit at [facility]. Judging from the impression at the conclusion of her consultation, no significant new recommendations have been made. She has been educated in the appropriate diet. Most recent culture results were negative. Plan: The patient has been the recipient of 10 EpiFix applications. A request for preauthorization of PuraPly was denied. Thus, we have used a series of [place] allografts numbering four. No new recommendations of significance were elucidated by the wound care facility at [facility], where a second opinion was sought. The patient is to continue with a nutritious diet. Biopsies of the ulceration have been obtained, and the results were negative for malignancy. A more aggressive approach which might include surgical excision/debridement appears ill-advised, given the patient's history of extensive radiation to this area, and concern that healing will likely be impaired as a result. Several Plastic Surgery consultations in the past have culminated in a declination for aggressive debridement or flap reconstruction. Consideration had been given to the use of negative pressure therapy, which has not been a recently used modality. However, preauthorization has been denied. I have spoken again with the patient regarding an additional outside evaluation, as a second or third opinion as to options of management. Despite all measures thus far, the patient has shown very little progress toward healing. It is felt that outside consultation may be of benefit in reevaluating the patient's situation and elucidating a treatment plan which may be of benefit, which has not previously been employed. We may seek such consultation at a tertiary care facility, and will pursue this option over the next several weeks. Influenza vaccine was not administered today. The patient is not a smoker. She stands 5 feet 7 inches tall. She weighs 198 pounds. Her BMI is 31, which places her in a class I weight category. Weight loss has been recommended. She is to collaborate with her primary care physician in this regard.
[2018-10-16 08:22] VITALS: BP 165/78; RESP 18; TEMP 36.1; BMI 68.3
--- NOTE | 2018-10-16 09:01 | PCM.WC.HP ---
(1) History of uterine cancer Status: Chronic Current Visit: No Code(s): Z85.42 - Personal history of malignant neoplasm of other parts of uterus (2) History of melanoma Status: Chronic Current Visit: Yes Code(s): Z85.820 - Personal history of malignant melanoma of skin (3) Hyperlipidemia Status: Chronic Current Visit: No Code(s): E78.5 - Hyperlipidemia, unspecified (4) GERD (gastroesophageal reflux disease) Status: Chronic Current Visit: No Code(s): K21.9 - Gastro-esophageal reflux disease without esophagitis (5) Ulcer of right groin Status: Chronic Current Visit: Yes Qualifiers: Non-pressure ulcer stage: with fat layer exposed Code(s): L98.499 - Non-pressure chronic ulcer of skin of other sites with unspecified severity (6) Obesity (BMI 30.0-34.9) Status: Chronic Current Visit: No Code(s): E66.9 - Obesity, unspecified (7) Amputee, above knee Status: Chronic Current Visit: No Qualifiers: Laterality: right Code(s): Z89.619 - Acquired absence of unspecified leg above knee (8) Soft tissue radionecrosis Status: Chronic Current Visit: Yes Code(s): L59.8 - Other specified disorders of the skin and subcutaneous tissue related to radiation; Y84.2 - Radiological procedure and radiotherapy as the cause of abnormal reaction of the patient, or of later complication, without mention of misadventure at the time of the procedure (9) soft tissue radiation injury Status: Chronic Current Visit: Yes History of Present Illness Chief Complaint: 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 The patient underwent excision of her melanoma with lymphadenectomy in the right groin. She also underwent lengthy radiation treatments at the [facility] in [place], [place]. Melanoma recurred, and the patient was subsequently treated with monoclonal antibodies in 1984. 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 In 2012, the patient was treated in our wound center for ulcerations of the right upper thigh and groin related to soft tissue radiation necrosis. Treatment included local ulcer care and hyperbaric oxygen therapy. She underwent a total of nearly 90 treatments of hyperbaric oxygen therapy. It is known that she tolerated the therapies well, and derived significant benefit. She relates no history of claustrophobia, or other complications related to the hyperbaric oxygen therapy treatments. She has no history of barotrauma to lungs, ears, etc. Her medical history has been reviewed, without any evidence of contraindications to hyperbaric oxygen therapy. Hyperbaric oxygen therapy has been administered for nearly 90 treatment sessions. We are currently using EpiFix allografts, and she has undergone 8 applications thus far. The patient's history suggests that the right groin wound in the past responded to hyperbaric oxygen therapy, but required 90 such sessions. It appears as though the patient's current clinical course is mimicking that of the past, with wound healing which is very recalcitrant to conventional treatment measures. 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 She has undergone excision of melanoma from the right calf, with lymphadenectomy of the right groin in the 1969's. She subsequently required surgeries of the right thigh related to osteomyelitis, MRSA infection, and radiation injury to the right femoral artery. Ultimately, the patient required right above-knee amputation, performed in 2000. She also has a remote history of open reduction and internal fixation of a right ankle fracture. Allergies/Adverse Reactions: Allergies No Known Allergies Allergy (Verified 06/20/17 09:22) Home Medications: Ambulatory Orders Medication Instructions Recorded Famotidine 20 mg PO 06/20/17 Pravastatin [Pravachol] 20 mg PO DAILY 06/20/17 - Family History Maternal - - The patient's mother is 98 years of age and relatively healthy. The patient's father at age of 79 with a history of cardiomyopathy. Smoking Status: Former smoker Tobacco Use: Non-smoker Review of Systems Constitutional: Denies: Chills, Fever, Weight Change Eyes: Denies: Pain, Vision Change HEENT: Denies: Difficulty Hearing, Difficulty Swallowing, Sinus Congestion Cardiovascular: Denies: Chest Pain, Palpitations Respiratory: Denies: Cough, Shortness of Breath Gastrointestinal: Denies: Diarrhea, Nausea, Vomiting Genitourinary: Denies: Dysuria, Hematuria Endocrine: Denies: Heat/ Cold Intolerance, Polydipsia, Polyuria Hematologic/ Lymphatic: Denies: Easy Bruising, Easy Bleeding - Physical Exam Vital Signs Temp Pulse Resp BP 96.9 F L 101 H 18 165/78 H 10/16/18 08:22 10/08/18 13:34 10/16/18 08:22 10/16/18 08:22 General: Alert, Oriented x3, Cooperative, No apparent distress, Well developed, Well nourished HEENT: Atraumatic, PERRLA, EOMI, Normocephalic Oral: Moist Mucosa Neck: No JVD Lungs: Normal air movement Abdomen: Non-Distended Extremities: No clubbing, No cyanosis, No edema, No Calf Tenderness, - - A well-healed right above-knee amputation stump is noted. The ulceration on the right groin persists. The inferior portion of the ulceration has opened, and there is now extension through the dermis into the subcutaneous tissue at the inferior pole of the ulcer. The central portion remains open, and little change from noted previously. There is a minimal amount of bioburden. There is no significant drainage or odor. There is no obvious evidence of infection or cellulitis. Dimensions are documented elsewhere. Skin: No rashes Wound Measurements and Assessment WC - Nurse 1 - General Ulcer Measurement Start: 10/08/18 13:34 Freq: Status: Active Protocol: Activity Type Activity Date Activity User E-Sign Co-Sign Detail Recorded Client Recorded Date Recorded By Document 10/16/18 08:22 HARDIK [id number] 10/16/18 08:32 HARDIK 10/16/18 08:22 Wound Center Nurse 1 [Ulcer Assessment] #5 R Groin -Combined with other wound No -Current Size (cm) - Length 3.9 -Current Size (cm) - Width 0.8 -Current Size (cm) - Depth 1.1 -Total Square Cm 3.12 -Photo Taken No -Epithelialization None Present -Tunneling No -Undermining/Tunneling No -Circular Undermining No -Exudate Amt Small -Exudate Type Serosanguineous -Wound Margin Flat & Intact -Granulation Amt Large (67-100%) -Granulation Quality [place] -Slough/Fibrin Yes -Necrosis Amt Small (1-33%) -Necrotic Tissue Type Adherent Slough -Structure Exposed N/A -Texture (Daniel-wound Skin Appearance) Assessed Friable Localized Edema -Moisture (Daniel-wound Skin Appearance Assessed ) Dry/Scaly -Color (Daniel-wound Skin Appearance) Assessed -Temperature (Daniel-wound Skin No Abnormality Appearance) (Pt Warm) -Tenderness on Palpation (Daniel-wound No Skin Appearance) -Ulcer Cleansing Rinsed/ Irrigated with Saline -Foul Odor after Cleansing No -Anesthetic Used 5% Lidocaine Gel [Edema Assessment] -Lower Limb Edema Present NA WC - Nurse 2 - General Ulcer CM Notes Start: 10/08/18 13:34 Freq: Status: Active Protocol: Activity Type Activity Date Activity User E-Sign Co-Sign Detail Recorded Client Recorded Date Recorded By Document 10/16/18 08:46 DV [id number] 10/16/18 09:00 DV 10/16/18 08:46 Wound Center Nurse 2 [Procedure/Treatment] #5 R Groin -Correct Patient Yes -Correct Side, Site, Position Yes -Correct Procedure Yes -Procedure Performed Yes -Type of Procedure Debridement -Clinical Debridement Subcutaneous -Post Debridement Size (cm) - Length 4.0 -Post Debridement Size (cm) - Width 1.0 -Post Debridement Size (cm) - Depth 1.1 -Total Square Cm 4.00 -Wound/Ulcer Outcome Failed Graft -Ulcer Cleansing Rinsed/ Irrigated with Saline -Foul Odor after Cleansing No -Bioengineered Tissue No -Bleeding Controlled with Pressure -Offloading No -Treatment Response Procedure Tolerated Well [See Physician Procedure note for Specifics] Pain Scale: 0-10 Numeric [Pain] -Is Patient Pain Free? Yes Musculoskeletal: No Muscle Wasting Neurological: Cranial nerves II-XII grossly intact, Neuro grossly intact Psych/Mental Status: Normal Affect, Appropriate, Alert and oriented to time, place, person, mood and affect Debridement Note Post-Debridement Measurements/Treatment WC - Nurse 2 - General Ulcer CM Notes Start: 10/08/18 13:34 Freq: Status: Active Protocol: Activity Type Activity Date Activity User E-Sign Co-Sign Detail Recorded Client Recorded Date Recorded By Document 10/08/18 15:05 DV [id number] 10/08/18 15:07 DV Document 10/16/18 08:46 DV [id number] 10/16/18 09:00 DV 10/08/18 10/16/18 15:05 08:46 Wound Center Nurse 2 #5 R Groin -Time 15:05 -Correct Patient Yes Yes -Correct Side, Site, Position Yes Yes -Correct Procedure Yes Yes -Procedure Performed Yes Yes -Type of Procedure Debridement Debridement -Clinical Debridement Subcutaneous Subcutaneous -Post Debridement Size (cm) - Length 1.0 4.0 -Post Debridement Size (cm) - Width 1.0 1.0 -Post Debridement Size (cm) - Depth 1.7 1.1 -Total Square Cm 1.00 4.00 -Wound/Ulcer Outcome Not Healed Failed Graft -Ulcer Cleansing Rinsed/ Rinsed/ Irrigated with Irrigated with Saline Saline -Foul Odor after Cleansing No No -Bioengineered Tissue No No -Bleeding Controlled with Pressure Pressure -Offloading No No -Treatment Response Procedure Procedure Tolerated Well Tolerated Well Pain Scale: 0-10 Numeric Is Patient Pain Free? 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 In the 1970's, she was diagnosed with malignant melanoma of the right calf, with metastasis to lymph nodes in the right groin. She underwent excision of the melanoma with right groin lymphadenectomy. She was subsequently treated with a long series of radiation treatments to the right groin. During the days of her radiation treatment, it is suspected that the radiation techniques were somewhat early in their evolution, and quite likely that the patient received massive doses of radiation exposure, exceeding doses which would be considered appropriate today, with techniques which are primitive by today's standards. As a result, the patient has developed soft tissue radiation injury, and has previously been treated at our wound center in the past with a series of approximately 90 hyperbaric oxygen therapy treatments, in 2011. She presented with recurrence of soft tissue radionecrosis in the right groin. Hyperbaric oxygen therapy treatments were initiated, and the patient has undergone a series of 90 additional hyperbaric oxygen treatment sessions. She has shown mild benefit from the hyperbaric oxygen treatments. At this time, there is no clinical evidence of infection or cellulitis in the daniel-ulcer area. However, the patient is responding very slowly to the variety of conventional treatment measures which have been implemented. We have cultured the right groin ulceration again today, and will await results. In review of the patient's past history, each treatment course has been rather protracted and lengthy in nature to achieve ultimate healing. The patient was previously referred for consultation at [facility] (Dr. Harding), which had been arranged by our facility. Medical records related to the patient's visit at [facility] resulted in no significant new recommendations for treatment or management. Given that little progress has been made since that time, consideration is to be given to another attempt at tertiary care evaluation. The patient has been educated in the appropriate diet. Plan: The patient has been the recipient of 10 EpiFix applications. A request for preauthorization of PuraPly was denied. Attempts at preauthorization of negative pressure wound therapy have also been denied. Thus, we have used a series of [employer] allografts numbering four. For now, we are to continue the use of Promogran topically. No new recommendations of significance were elucidated by the wound care facility at [facility], where a second opinion was sought. The patient is to continue with a nutritious diet. Biopsies of the ulceration have been obtained, and the results were negative for malignancy. A more aggressive approach which might include surgical excision/debridement appears ill-advised, given the patient's history of extensive radiation to this area, and concern that healing will likely be impaired as a result. Several Plastic Surgery consultations in the past have culminated in a declination for aggressive debridement or flap reconstruction. Consideration had been given to the use of negative pressure therapy. However, preauthorization has been denied. I have spoken again with the patient regarding an additional outside evaluation, as a second or third opinion as to options of management. Despite all measures thus far, the patient has shown very little progress toward healing. It is felt that outside consultation may be of benefit in reevaluating the patient's condition and targeting a treatment plan which may be of benefit. We may seek such consultation at a tertiary care facility, and will pursue this option over the next several weeks. Wound cultures have been obtained, and results will be awaited. Influenza vaccine was not administered today. The patient is not a smoker. She stands 5 feet 7 inches tall. She weighs 198 pounds. Her BMI is 31, which places her in a class I weight category. Weight loss has been recommended. She is to collaborate with her primary care physician in this regard.
--- NOTE | 2018-10-16 09:08 | HP.PCM_ITS ---
(1) History of uterine cancer Status: Chronic Current Visit: No Code(s): Z85.42 - Personal history of malignant neoplasm of other parts of uterus (2) History of melanoma Status: Chronic Current Visit: Yes Code(s): Z85.820 - Personal history of malignant melanoma of skin (3) Hyperlipidemia Status: Chronic Current Visit: No Code(s): E78.5 - Hyperlipidemia, unspecified (4) GERD (gastroesophageal reflux disease) Status: Chronic Current Visit: No Code(s): K21.9 - Gastro-esophageal reflux disease without esophagitis (5) Ulcer of right groin Status: Chronic Current Visit: Yes Qualifiers: Non-pressure ulcer stage: with fat layer exposed Code(s): L98.499 - Non-pressure chronic ulcer of skin of other sites with unspecified severity (6) Obesity (BMI 30.0-34.9) Status: Chronic Current Visit: No Code(s): E66.9 - Obesity, unspecified (7) Amputee, above knee Status: Chronic Current Visit: No Qualifiers: Laterality: right Code(s): Z89.619 - Acquired absence of unspecified leg above knee (8) Soft tissue radionecrosis Status: Chronic Current Visit: Yes Code(s): L59.8 - Other specified disorders of the skin and subcutaneous tissue related to radiation; Y84.2 - R adiological procedure and radiotherapy as the cause of abnormal reaction of the patient, or of later complication, without mention of misadventure at the time of the procedure (9) soft tissue radiation injury Status: Chronic Current Visit: Yes History of Present Illness Chief Complaint: 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 The patient underwent excision of her melanoma with lymphadenecto my in the right groin. She also underwent lengthy radiation treatments at the [facility] in [place], [place]. Melanoma recurred, and the patient was subsequently treated with monoclonal antibodies in 1984. 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 Treatment included local ulcer care and hyperbaric oxygen therapy. She underwent a total of nearly 90 treatments of hyperbaric oxygen therapy. It is known that she tolerated the therapies well, and derived significant benefit. She relates no history of claustrophobia, or other complications related to the hyperbaric oxygen therapy treatments. She has no history of barotrauma to lungs, ears, etc. Her medical history has been reviewed, without any evidence of contraindications to hyperbaric oxygen therapy. Hyperbaric oxygen therapy has been administered for nearly 90 treatment sessions. We are currently using EpiFix allografts, and she has undergone 8 applications thus far. The patient's history suggests that the right groin wound in the past responded to hyperbaric oxygen therapy, but required 90 such sessions. It appears as though the patient's current clinical course is mimicking that of the past, with wound healing which is very recalcitrant to conventional treatment measures. 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 She has undergone excision of melanoma from the right calf, with lymphadenectomy of the right groin in the 1969's. She subsequently required surgeries of the right thigh related to osteomyelitis, MRSA infection, and radiation injury to the right femoral artery. Ultimately, the patient required right above-knee amputation, performed in 2000. She also has a remote history of open reduction and internal fixation of a right ankle fracture. Allergies/Adverse Reactions: Allergies No Known Allergies Allergy (Verified 06/20/17 09:22) Home Medications: Ambulatory Orders Medication Instructions Recorded Famotidine 20 mg PO 06/20/17 Pravastatin [Pravachol] 20 mg PO DAILY 06/20/17 - Family History Maternal - - The patient's mother is 98 years of age and relatively healthy. The patient's father at age of 79 with a history of cardiomyopathy. Smoking Status: Former smoker Tobacco Use: Non-smoker Review of Systems Constitutional: Denies: Chills, Fever, Weight Change Eyes: Denies: Pain, Vision Change HEENT: Denies: Difficulty Hearing, Difficulty Swallowing, Sinus Congestion Cardiovascular: Denies: Chest Pain, Palpitations Respiratory: Denies: Cough, Shortness of Breath Gastrointestinal: Denies: Diarrhea, Nausea, Vomiting Genitourinary: Denies: Dysuria, Hematuria Endocrine: Denies: Heat/ Cold Intolerance, Polydipsia, Polyuria Hematologic/ Lymphatic: Denies: Easy Bruising, Easy Bleeding - Physical Exam Vital Signs Temp Pulse Resp BP 96.9 F L 101 H 18 165/78 H 10/16/18 08:22 10/08/18 13:34 10/16/18 08:22 10/16/18 08:22 General: Alert, Oriented x3, Cooperative, No apparent distress, Well developed, Well nourished HEENT: Atraumatic, PERRLA, EOMI, Normocephalic Oral: Moist Mucosa Neck: No JVD Lungs: Normal air movement Abdomen: Non-Distended Extremities: No clubbing, No cyanosis, No edema, No Calf Tenderness, - - A well- healed right above-knee amputation stump is noted. The ulceration on the right groin persists. The inferior portion of the ulceration has opened, and there is now extension through the dermis into the subcutaneous tissue at the inferior pole of the ulcer. The central portion remains open, and little change from noted previously. There is a minimal amount of bioburden. There is no significant drainage or odor. There is no obvious evidence of infection or cellulitis. Dimensions are documented elsewhere. Skin: No rashes Wound Measurements and Assessment WC - Nurse 1 - General Ulcer Measurement Start: 10/08/18 13:34 Freq: Status: Active Protocol: Activity Type Activity Date Activity User E-Sign Co-Sign Detail Recorded Client Recorded Date Recorded By Document 10/16/18 08:22 HARDIK [id number] 10/16/18 08:32 HARDIK 10/16/18 08:22 Wound Center Nurse 1 [Ulcer Assessment] #5 R Groin -Combined with other wound No -Current Size (cm) - Length 3.9 -Current Size (cm) - Width 0.8 -Current Size (cm) - Depth 1.1 -Total Square Cm 3.12 -Photo Taken No -Epithelialization None Present -Tunneling No -Undermining/Tunneling No -Circular Undermining No -Exudate Amt Small -Exudate Type Serosanguineous -Wound Margin Flat & Intact -Granulation Amt Large (67-100%) -Granulation Quality [place] -Slough/Fibrin Yes -Necrosis Amt Small (1-33%) -Necrotic Tissue Type Adherent Slough -Structure Exposed N/A -Texture (Daniel-wound Skin Appearance) Assessed Friable Localized Edema -Moisture (Daniel-wound Skin Appearance Assessed ) Dry/Scaly -Color (Daniel-wound Skin Appearance) Assessed -Temperature (Daniel-wound Skin No Abnormality Appearance) (Pt Warm) -Tenderness on Palpation (Daniel-wound No Skin Appearance) -Ulcer Cleansing Rinsed/ Irrigated with Saline -Foul Odor after Cleansing No -Anesthetic Used 5% Lidocaine Gel [Edema Assessment] -Lower Limb Edema Present NA WC - Nurse 2 - General Ulcer CM Notes Start: 10/08/18 13:34 Freq: Status: Active Protocol: Activity Type Activity Date Activity User E-Sign Co-Sign Detail Recorded Client Recorded Date Recorded By Document 10/16/18 08:46 DV [id number] 10/16/18 09:00 DV 10/16/18 08:46 Wound Center Nurse 2 [Procedure/Treatment] #5 R Groin -Correct Patient Yes -Correct Side, Site, Position Yes -Correct Procedure Yes -Procedure Performed Yes -Type of Procedure Debridement -Clinical Debridement Subcutaneous -Post Debridement Size (cm) - Length 4.0 -Post Debridement Size (cm) - Width 1.0 -Post Debridement Size (cm) - Depth 1.1 -Total Square Cm 4.00 -Wound/Ulcer Outcome Failed Graft -Ulcer Cleansing Rinsed/ Irrigated with Saline -Foul Odor after Cleansing No -Bioengineered Tissue No -Bleeding Controlled with Pressure -Offloading No -Treatment Response Procedure Tolerated Well [See Physician Procedure note for Specifics] Pain Scale: 0-10 Numeric [Pain] -Is Patient Pain Free? Yes Musculoskeletal: No Muscle Wasting Neurological: Cranial nerves II-XII grossly intact, Neuro grossly intact Psych/Mental Status: Normal Affect, Appropriate, Alert and oriented to time, place, person, mood and affect Debridement Note Post-Debridement Measurements/Treatment WC - Nurse 2 - General Ulcer CM Notes Start: 10/08/18 13:34 Freq: Status: Active Protocol: Activity Type Activity Date Activity User E-Sign Co-Sign Detail Recorded Client Recorded Date Recorded By Document 10/08/18 15:05 DV [id number] 10/08/18 15:07 DV Document 10/16/18 08:46 DV [id number] 10/16/18 09:00 DV 10/08/18 10/16/18 15:05 08:46 Wound Center Nurse 2 #5 R Groin -Time 15:05 -Correct Patient Yes Yes -Correct Side, Site, Position Yes Yes -Correct Procedure Yes Yes -Procedure Performed Yes Yes -Type of Procedure Debridement Debridement -Clinical Debridement Subcutaneous Subcutaneous -Post Debridement Size (cm) - Length 1.0 4.0 -Post Debridement Size (cm) - Width 1.0 1.0 -Post Debridement Size (cm) - Depth 1.7 1.1 -Total Square Cm 1.00 4.00 -Wound/Ulcer Outcome Not Healed Failed Graft -Ulcer Cleansing Rinsed/ Rinsed/ Irrigated with Irrigated with Saline Saline -Foul Odor after Cleansing No No -Bioengineered Tissue No No -Bleeding Controlled with Pressure Pressure -Offloading No No -Treatment Response Procedure Procedure Tolerated Well Tolerated Well Pain Scale: 0-10 Numeric Is Patient Pain Free? 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 In the 1970's, she was diagnosed with malignant melanoma of the right calf, with metastasis to lymph nodes in the right groin. She underwent excision of the melanoma with right groin lymphadenectomy. She was subsequently treated with a long series of radiation treatments to the right groin. During the days of her radiation treatment, it is suspected that the radiation techniques were somewhat early in their evolution, and quite likely that the patient received massive doses of radiation exposure, exceeding doses which would be considered appropriate today, with lucius hniques which are primitive by today's standards. As a result, the patient has developed soft tissue radiation injury, and has previously been treated at our wound center in the past with a series of approximately 90 hyperbaric oxygen therapy treatments, in 2011. She presented with recurrence of soft tissue radionecrosis in the right groin. Hyperbaric oxygen therapy treatments were initiated, and the patient has undergone a series of 90 additional hyperbaric oxygen treatment sessions. She has shown mild benefit from the hyperbaric oxygen treatments. At this time, there is no clinical evidence of infection or cellulitis in the daniel-ulcer area. However, the patient is responding very slowly to the variety of conventional treatment measures which have been implemented. We have cultured the right groin ulceration again today, and will await results. In review of the patient's past history, each treatment course has been rather protracted and lengthy in nature to achieve ultimate healing. The patient was previously referred for consultation at [facility] (Dr. Harding), which had been arranged by our facility. Medical records related to the patient's visit at [facility] resulted in no significant new recommendations for treatment or management. Given that little progress has been made since that time, consideration is to be given to another attempt at tertiary care evaluation. The patient has been educated in the appropriate diet. Plan: The patient has been the recipient of 10 EpiFix applications. A request for preauthorization of PuraPly was denied. Attempts at preauthorization of negative pressure wound therapy have also been denied. Thus, we have used a series of [place] allografts numbering four. For now, we are to continue the use of Promogran topically. No new recommendations of significance were elucidated by the wound care facility at [facility], where a second opinion was sought. The patient is to continue with a nutritious diet. Biopsies of the ulceration have been obtained, and the results were negative for malignancy. A more aggressive approach which might include surgical excision/debridement appears ill-advised, given the patient's history of extensive radiation to this area, and concern that healing will likely be impaired as a result. Several Plastic Surgery consultations in the past have culminated in a declination for aggressive debridement or flap reconstruction. Consideration had been given to the use of negative pressure therapy. However, preauthorization has been denied. I have spoken again with the patient regarding an additional outside evaluation, as a second or third opinion as to options of management. Despite all measures thus far, the patient has shown very little progress toward healing. It is felt that outside consultation may be of benefit in reevaluating the patient's condition and targeting a treatment plan which may be of benefit. We may seek such consultation at a tertiary care facility, and will pursue this option over the next several weeks. Wound cultures have been obtained, and results will be awaited. Influenza vaccine was not administered today. The patient is not a smoker. She stands 5 feet 7 inches tall. She weighs 198 pounds. Her BMI is 31, which places her in a class I weight category. Weight loss has been recommended. She is to collaborate with her primary care physician in this regard.
[2018-10-23 09:39] VITALS: BP 155/78; PULSE 75; RESP 18; TEMP 35.6; BMI 68.3
--- NOTE | 2018-10-23 10:25 | PCM.WC.HP ---
(1) History of uterine cancer Status: Chronic Current Visit: No Code(s): Z85.42 - Personal history of malignant neoplasm of other parts of uterus (2) History of melanoma Status: Chronic Current Visit: Yes Code(s): Z85.820 - Personal history of malignant melanoma of skin (3) Hyperlipidemia Status: Chronic Current Visit: No Code(s): E78.5 - Hyperlipidemia, unspecified (4) GERD (gastroesophageal reflux disease) Status: Chronic Current Visit: No Code(s): K21.9 - Gastro-esophageal reflux disease without esophagitis (5) Ulcer of right groin Status: Chronic Current Visit: Yes Qualifiers: Non-pressure ulcer stage: with fat layer exposed Code(s): L98.499 - Non-pressure chronic ulcer of skin of other sites with unspecified severity (6) Obesity (BMI 30.0-34.9) Status: Chronic Current Visit: No Code(s): E66.9 - Obesity, unspecified (7) Amputee, above knee Status: Chronic Current Visit: No Qualifiers: Laterality: right Code(s): Z89.619 - Acquired absence of unspecified leg above knee (8) Soft tissue radionecrosis Status: Chronic Current Visit: Yes Code(s): L59.8 - Other specified disorders of the skin and subcutaneous tissue related to radiation; Y84.2 - Radiological procedure and radiotherapy as the cause of abnormal reaction of the patient, or of later complication, without mention of misadventure at the time of the procedure (9) soft tissue radiation injury Status: Chronic Current Visit: Yes History of Present Illness Chief Complaint: 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 The patient underwent excision of her melanoma with lymphadenectomy in the right groin. She also underwent lengthy radiation treatments at the [facility] in [place], [place]. Melanoma recurred, and the patient was subsequently treated with monoclonal antibodies in 1984. 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 In 2012, the patient was treated in our wound center for ulcerations of the right upper thigh and groin related to soft tissue radiation necrosis. Treatment included local ulcer care and hyperbaric oxygen therapy. She underwent a total of nearly 90 treatments of hyperbaric oxygen therapy. It is known that she tolerated the therapies well, and derived significant benefit. She relates no history of claustrophobia, or other complications related to the hyperbaric oxygen therapy treatments. She has no history of barotrauma to lungs, ears, etc. Her medical history has been reviewed, without any evidence of contraindications to hyperbaric oxygen therapy. Hyperbaric oxygen therapy has been administered for nearly 90 treatment sessions. We are currently using EpiFix allografts, and she has undergone 8 applications thus far. The patient's history suggests that the right groin wound in the past responded to hyperbaric oxygen therapy, but required 90 such sessions. It appears as though the patient's current clinical course is mimicking that of the past, with wound healing which is very recalcitrant to conventional treatment measures. 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 She has undergone excision of melanoma from the right calf, with lymphadenectomy of the right groin in the 1969's. She subsequently required surgeries of the right thigh related to osteomyelitis, MRSA infection, and radiation injury to the right femoral artery. Ultimately, the patient required right above-knee amputation, performed in 2000. She also has a remote history of open reduction and internal fixation of a right ankle fracture. Allergies/Adverse Reactions: Allergies No Known Allergies Allergy (Verified 06/20/17 09:22) Home Medications: Ambulatory Orders Medication Instructions Recorded Famotidine 20 mg PO 06/20/17 Pravastatin [Pravachol] 20 mg PO DAILY 06/20/17 - Family History Maternal - - The patient's mother is 98 years of age and relatively healthy. The patient's father at age of 79 with a history of cardiomyopathy. Smoking Status: Former smoker Tobacco Use: Non-smoker Review of Systems Constitutional: Denies: Chills, Fever, Weight Change Eyes: Denies: Pain, Vision Change HEENT: Denies: Difficulty Hearing, Difficulty Swallowing, Sinus Congestion Cardiovascular: Denies: Chest Pain, Palpitations Respiratory: Denies: Cough, Shortness of Breath Gastrointestinal: Denies: Diarrhea, Nausea, Vomiting Genitourinary: Denies: Dysuria, Hematuria Endocrine: Denies: Heat/ Cold Intolerance, Polydipsia, Polyuria Hematologic/ Lymphatic: Denies: Easy Bruising, Easy Bleeding - Physical Exam Vital Signs Temp Pulse Resp BP 96.0 F L 75 18 155/78 H 10/23/18 09:39 10/23/18 09:39 10/23/18 09:39 10/23/18 09:39 General: Alert, Oriented x3, Cooperative, No apparent distress, Well developed, Well nourished HEENT: Atraumatic, PERRLA, EOMI, Normocephalic Oral: Moist Mucosa Neck: No JVD Lungs: Normal air movement Abdomen: Non-Distended Extremities: No clubbing, No cyanosis, No edema, No Calf Tenderness, - - A well-healed right below-knee amputation stump is noted. The ulceration in the right groin persists, little changed in size or appearance. Dimensions are documented elsewhere. The original elliptical ulceration now demonstrates evidence of epithelialization superiorly and inferiorly. Centrally, however, there remains an open ulceration, which is not well beveled. There is a moderate amount of bioburden. There is no sign of infection or cellulitis. Dimensions are documented elsewhere. Skin: No rashes Wound Measurements and Assessment WC - Nurse 1 - General Ulcer Measurement Start: 10/08/18 13:34 Freq: Status: Active Protocol: Activity Type Activity Date Activity User E-Sign Co-Sign Detail Recorded Client Recorded Date Recorded By Document 10/23/18 09:39 MW [id number] 10/23/18 09:42 MW 10/23/18 09:39 Wound Center Nurse 1 [Ulcer Assessment] #5 R Groin -Combined with other wound No -Current Size (cm) - Length 0.8 -Current Size (cm) - Width 3.8 -Current Size (cm) - Depth 1.0 -Total Square Cm 3.04 -Photo Taken No -Epithelialization None Present -Tunneling No -Undermining/Tunneling No -Circular Undermining No -Exudate Amt Small -Exudate Type Serosanguineous -Wound Margin Distinct, Outline Attached -Granulation Amt Small (1-33%) -Granulation Quality Pale -Slough/Fibrin Yes -Necrosis Amt Large (67-100%) -Necrotic Tissue Type Adherent Slough -Structure Exposed N/A -Texture (Blanche-wound Skin Appearance) Assessed Scarring -Moisture (Blanche-wound Skin Appearance No Abnormality ) Assessed -Color (Blanche-wound Skin Appearance) No Abnormality Assessed -Temperature (Blanche-wound Skin No Abnormality Appearance) (Pt Warm) -Tenderness on Palpation (Blanche-wound No Skin Appearance) -Ulcer Cleansing Rinsed/ Irrigated with Saline -Foul Odor after Cleansing No -Anesthetic Used 5% Lidocaine Gel [Edema Assessment] -Lower Limb Edema Present No WC - Nurse 2 - General Ulcer CM Notes Start: 10/08/18 13:34 Freq: Status: Active Protocol: Activity Type Activity Date Activity User E-Sign Co-Sign Detail Recorded Client Recorded Date Recorded By Document 10/23/18 10:12 DV [id number] 10/23/18 10:17 DV 10/23/18 10:12 Wound Center Nurse 2 [Procedure/Treatment] #5 R Groin -Time 10:13 -Correct Patient Yes -Correct Side, Site, Position Yes -Correct Procedure Yes -Procedure Performed Yes -Type of Procedure Debridement -Clinical Debridement Subcutaneous -Post Debridement Size (cm) - Length 4.5 -Post Debridement Size (cm) - Width 1.0 -Post Debridement Size (cm) - Depth 0.5 -Total Square Cm 4.50 -Wound/Ulcer Outcome Not Healed -Ulcer Cleansing Rinsed/ Irrigated with Saline -Foul Odor after Cleansing No -Bioengineered Tissue No -Bleeding Controlled with Pressure -Offloading No -Treatment Response Procedure Tolerated Well [See Physician Procedure note for Specifics] Pain Scale: 0-10 Numeric [Pain] -Is Patient Pain Free? Yes Musculoskeletal: No Muscle Wasting Neurological: Cranial nerves II-XII grossly intact, Neuro grossly intact Psych/Mental Status: Normal Affect, Appropriate, Alert and oriented to time, place, person, mood and affect Debridement Note Post-Debridement Measurements/Treatment WC - Nurse 2 - General Ulcer CM Notes Start: 10/08/18 13:34 Freq: Status: Active Protocol: Activity Type Activity Date Activity User E-Sign Co-Sign Detail Recorded Client Recorded Date Recorded By Document 10/08/18 15:05 DV [id number] 10/08/18 15:07 DV Document 10/16/18 08:46 DV [id number] 10/16/18 09:00 DV Document 10/23/18 10:12 DV [id number] 10/23/18 10:17 DV 10/08/18 10/16/18 10/23/18 15:05 08:46 10:12 Wound Center Nurse 2 #5 R Groin -Time 15:05 10:13 -Correct Patient Yes Yes Yes -Correct Side, Site, Position Yes Yes Yes -Correct Procedure Yes Yes Yes -Procedure Performed Yes Yes Yes -Type of Procedure Debridement Debridement Debridement -Clinical Debridement Subcutaneous Subcutaneous Subcutaneous -Post Debridement Size (cm) - Length 1.0 4.0 4.5 -Post Debridement Size (cm) - Width 1.0 1.0 1.0 -Post Debridement Size (cm) - Depth 1.7 1.1 0.5 -Total Square Cm 1.00 4.00 4.50 -Wound/Ulcer Outcome Not Healed Not Healed Not Healed -Ulcer Cleansing Rinsed/ Rinsed/ Rinsed/ Irrigated with Irrigated with Irrigated with Saline Saline Saline -Foul Odor after Cleansing No No No -Bioengineered Tissue No No No -Bleeding Controlled with Pressure Pressure Pressure -Offloading No No No -Treatment Response Procedure Procedure Procedure Tolerated Well Tolerated Well Tolerated Well Pain Scale: 0-10 Numeric Is Patient Pain Free? 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 In the 1969's, she was diagnosed with malignant melanoma of the right calf, with metastasis to lymph nodes in the right groin. She underwent excision of the melanoma with right groin lymphadenectomy. She was subsequently treated with a long series of radiation treatments to the right groin. During the days of her radiation treatment, it is suspected that the radiation techniques were somewhat early in their evolution, and quite likely that the patient received massive doses of radiation exposure, exceeding doses which would be considered appropriate today, with techniques which are primitive by today's standards. As a result, the patient has developed soft tissue radiation injury, and has previously been treated at our wound center in the past with a series of approximately 90 hyperbaric oxygen therapy treatments, in 2011. She presented with recurrence of soft tissue radionecrosis in the right groin. Hyperbaric oxygen therapy treatments were initiated, and the patient has undergone a series of 90 additional hyperbaric oxygen treatment sessions. She has shown mild benefit from the hyperbaric oxygen treatments. At this time, there is no clinical evidence of infection or cellulitis in the blanche-ulcer area. However, the patient is responding very slowly to the variety of conventional treatment measures which have been implemented. In review of the patient's past history, each treatment course has been rather protracted in terms of healing. The patient was previously referred for consultation at [facility] (Dr. Harding), which had been arranged by our facility. Medical records related to the patient's visit at [facility] resulted in no significant new recommendations for treatment or management. The patient remains on a well-balanced diet. Given that little progress has been made in recent months, I have contacted and spoken by phone with the Prepress Technician of [facility], Dr. Bassam Alas. Dr. Alas has been very helpful. He has conferred with his colleague, Plastic Surgeon Dr. Cassius Whitman. Dr. Whitman has indicated his willingness to evaluate the patient, and an appointment has been made for November 08, 2018. It is anticipated that there may be consideration of a flap reconstruction for the ulceration in the right groin, though this possibility is yet to be determined, pending Dr. Whitman's evaluation. Plan: The patient has been the recipient of 10 EpiFix applications. A request for preauthorization of PuraPly was denied. Attempts at preauthorization of negative pressure wound therapy have also been denied. We have used a series of [place] allografts most recently. For now, we are to continue the use of Promogran topically. No new recommendations of significance were elucidated by the wound care facility at [facility], where a second opinion was sought. The patient is to continue with a nutritious diet. Biopsies of the ulceration have been obtained, and the results were negative for malignancy. The patient is now scheduled for consultation with Plastic Surgeon, Dr. Cassius Whitman on November 08, 2018. We will await the results of this consultation, to determine whether some type of flap reconstruction may be offered as an option. Despite all measures thus far, the patient has shown very little progress toward healing. Recent wound cultures, obtained on October 16, 2018, demonstrated very rare Staphylococcus aureus. This is felt to represent skin mare, not appearing to warrant antibiotic treatment. The patient is to return in 2 weeks for reassessment. Influenza vaccine was not administered today. The patient is not a smoker. She stands 5 feet 7 inches tall. She weighs 198 pounds. Her BMI is 31, which places her in a class I weight category. Weight loss has been recommended. She is to collaborate with her primary care physician in this regard.
--- NOTE | 2018-10-23 10:33 | HP.PCM_ITS ---
(1) History of uterine cancer Status: Chronic Current Visit: No Code(s): Z85.42 - Personal history of malignant neoplasm of other parts of uterus (2) History of melanoma Status: Chronic Current Visit: Yes Code(s): Z85.820 - Personal history of malignant melanoma of skin (3) Hyperlipidemia Status: Chronic Current Visit: No Code(s): E78.5 - Hyperlipidemia, unspecified (4) GERD (gastroesophageal reflux disease) Status: Chronic Current Visit: No Code(s): K21.9 - Gastro-esophageal reflux disease without esophagitis (5) Ulcer of right groin Status: Chronic Current Visit: Yes Qualifiers: Non-pressure ulcer stage: with fat layer exposed Code(s): L98.499 - Non-pressure chronic ulcer of skin of other sites with unspecified severity (6) Obesity (BMI 30.0-34.9) Status: Chronic Current Visit: No Code(s): E66.9 - Obesity, unspecified (7) Amputee, above knee Status: Chronic Current Visit: No Qualifiers: Laterality: right Code(s): Z89.619 - Acquired absence of unspecified leg above knee (8) Soft tissue radionecrosis Status: Chronic Current Visit: Yes Code(s): L59.8 - Other specified disorders of the skin and subcutaneous tissue related to radiation; Y84.2 - R adiological procedure and radiotherapy as the cause of abnormal reaction of the patient, or of later complication, without mention of misadventure at the time of the procedure (9) soft tissue radiation injury Status: Chronic Current Visit: Yes History of Present Illness Chief Complaint: 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 The patient underwent excision of her melanoma with lymphadenecto my in the right groin. She also underwent lengthy radiation treatments at the [facility] in [place], [place]. Melanoma recurred, and the patient was subsequently treated with monoclonal antibodies in 1984. 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 Treatment included local ulcer care and hyperbaric oxygen therapy. She underwent a total of nearly 90 treatments of hyperbaric oxygen therapy. It is known that she tolerated the therapies well, and derived significant benefit. She relates no history of claustrophobia, or other complications related to the hyperbaric oxygen therapy treatments. She has no history of barotrauma to lungs, ears, etc. Her medical history has been reviewed, without any evidence of contraindications to hyperbaric oxygen therapy. Hyperbaric oxygen therapy has been administered for nearly 90 treatment sessions. We are currently using EpiFix allografts, and she has undergone 8 applications thus far. The patient's history suggests that the right groin wound in the past responded to hyperbaric oxygen therapy, but required 90 such sessions. It appears as though the patient's current clinical course is mimicking that of the past, with wound healing which is very recalcitrant to conventional treatment measures. 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 She has undergone excision of melanoma from the right calf, with lymphadenectomy of the right groin in the 1969's. She subsequently required surgeries of the right thigh related to osteomyelitis, MRSA infection, and radiation injury to the right femoral artery. Ultimately, the patient required right above-knee amputation, performed in 2000. She also has a remote history of open reduction and internal fixation of a right ankle fracture. Allergies/Adverse Reactions: Allergies No Known Allergies Allergy (Verified 06/20/17 09:22) Home Medications: Ambulatory Orders Medication Instructions Recorded Famotidine 20 mg PO 06/20/17 Pravastatin [Pravachol] 20 mg PO DAILY 06/20/17 - Family History Maternal - - The patient's mother is 98 years of age and relatively healthy. The patient's father at age of 79 with a history of cardiomyopathy. Smoking Status: Former smoker Tobacco Use: Non-smoker Review of Systems Constitutional: Denies: Chills, Fever, Weight Change Eyes: Denies: Pain, Vision Change HEENT: Denies: Difficulty Hearing, Difficulty Swallowing, Sinus Congestion Cardiovascular: Denies: Chest Pain, Palpitations Respiratory: Denies: Cough, Shortness of Breath Gastrointestinal: Denies: Diarrhea, Nausea, Vomiting Genitourinary: Denies: Dysuria, Hematuria Endocrine: Denies: Heat/ Cold Intolerance, Polydipsia, Polyuria Hematologic/ Lymphatic: Denies: Easy Bruising, Easy Bleeding - Physical Exam Vital Signs Temp Pulse Resp BP 96.0 F L 75 18 155/78 H 10/23/18 09:39 10/23/18 09:39 10/23/18 09:39 10/23/18 09:39 General: Alert, Oriented x3, Cooperative, No apparent distress, Well developed, Well nourished HEENT: Atraumatic, PERRLA, EOMI, Normocephalic Oral: Moist Mucosa Neck: No JVD Lungs: Normal air movement Abdomen: Non-Distended Extremities: No clubbing, No cyanosis, No edema, No Calf Tenderness, - - A well- healed right below-knee amputation stump is noted. The ulceration in the right groin persists, little changed in size or appearance. Dimensions are documented elsewhere. The original elliptical ulceration now demonstrates evidence of epithelialization superiorly and inferiorly. Centrally, however, there remains an open ulceration, which is not well beveled. There is a moderate amount of bioburden. There is no sign of infection or cellulitis. Dimensions are documented elsewhere. Skin: No rashes Wound Measurements and Assessment WC - Nurse 1 - General Ulcer Measurement Start: 10/08/18 13:34 Freq: Status: Active Protocol: Activity Type Activity Date Activity User E-Sign Co-Sign Detail Recorded Client Recorded Date Recorded By Document 10/23/18 09:39 MW [id number] 10/23/18 09:42 MW 10/23/18 09:39 Wound Center Nurse 1 [Ulcer Assessment] #5 R Groin -Combined with other wound No -Current Size (cm) - Length 0.8 -Current Size (cm) - Width 3.8 -Current Size (cm) - Depth 1.0 -Total Square Cm 3.04 -Photo Taken No -Epithelialization None Present -Tunneling No -Undermining/Tunneling No -Circular Undermining No -Exudate Amt Small -Exudate Type Serosanguineous -Wound Margin Distinct, Outline Attached -Granulation Amt Small (1-33%) -Granulation Quality Pale -Slough/Fibrin Yes -Necrosis Amt Large (67-100%) -Necrotic Tissue Type Adherent Slough -Structure Exposed N/A -Texture (Blanche-wound Skin Appearance) Assessed Scarring -Moisture (Blanche-wound Skin Appearance No Abnormality ) Assessed -Color (Blanche-wound Skin Appearance) No Abnormality Assessed -Temperature (Blanche-wound Skin No Abnormality Appearance) (Pt Warm) -Tenderness on Palpation (Blanche-wound No Skin Appearance) -Ulcer Cleansing Rinsed/ Irrigated with Saline -Foul Odor after Cleansing No -Anesthetic Used 5% Lidocaine Gel [Edema Assessment] -Lower Limb Edema Present No WC - Nurse 2 - General Ulcer CM Notes Start: 10/08/18 13:34 Freq: Status: Active Protocol: Activity Type Activity Date Activity User E-Sign Co-Sign Detail Recorded Client Recorded Date Recorded By Document 10/23/18 10:12 DV [id number] 10/23/18 10:17 DV 10/23/18 10:12 Wound Center Nurse 2 [Procedure/Treatment] #5 R Groin -Time 10:13 -Correct Patient Yes -Correct Side, Site, Position Yes -Correct Procedure Yes -Procedure Performed Yes -Type of Procedure Debridement -Clinical Debridement Subcutaneous -Post Debridement Size (cm) - Length 4.5 -Post Debridement Size (cm) - Width 1.0 -Post Debridement Size (cm) - Depth 0.5 -Total Square Cm 4.50 -Wound/Ulcer Outcome Not Healed -Ulcer Cleansing Rinsed/ Irrigated with Saline -Foul Odor after Cleansing No -Bioengineered Tissue No -Bleeding Controlled with Pressure -Offloading No -Treatment Response Procedure Tolerated Well [See Physician Procedure note for Specifics] Pain Scale: 0-10 Numeric [Pain] -Is Patient Pain Free? Yes Musculoskeletal: No Muscle Wasting Neurological: Cranial nerves II-XII grossly intact, Neuro grossly intact Psych/Mental Status: Normal Affect, Appropriate, Alert and oriented to time, place, person, mood and affect Debridement Note Post-Debridement Measurements/Treatment WC - Nurse 2 - General Ulcer CM Notes Start: 10/08/18 13:34 Freq: Status: Active Protocol: Activity Type Activity Date Activity User E-Sign Co-Sign Detail Recorded Client Recorded Date Recorded By Document 10/08/18 15:05 DV [id number] 10/08/18 15:07 DV Document 10/16/18 08:46 DV [id number] 10/16/18 09:00 DV Document 10/23/18 10:12 DV [id number] 10/23/18 10:17 DV 10/08/18 10/16/18 10/23/18 15:05 08:46 10:12 Wound Center Nurse 2 #5 R Groin -Time 15:05 10:13 -Correct Patient Yes Yes Yes -Correct Side, Site, Position Yes Yes Yes -Correct Procedure Yes Yes Yes -Procedure Performed Yes Yes Yes -Type of Procedure Debridement Debridement Debridement -Clinical Debridement Subcutaneous Subcutaneous Subcutaneous -Post Debridement Size (cm) - Length 1.0 4.0 4.5 -Post Debridement Size (cm) - Width 1.0 1.0 1.0 -Post Debridement Size (cm) - Depth 1.7 1.1 0.5 -Total Square Cm 1.00 4.00 4.50 -Wound/Ulcer Outcome Not Healed Not Healed Not Healed -Ulcer Cleansing Rinsed/ Rinsed/ Rinsed/ Irrigated with Irrigated with Irrigated with Saline Saline Saline -Foul Odor after Cleansing No No No -Bioengineered Tissue No No No -Bleeding Controlled with Pressure Pressure Pressure -Offloading No No No -Treatment Response Procedure Procedure Procedure Tolerated Well Tolerated Well Tolerated Well Pain Scale: 0-10 Numeric Is Patient Pain Free? 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 In the 1970's, she was diagnosed with malignant melanoma of the right calf, with metastasis to lymph nodes in the right groin. She underwent excision of the melanoma with right groin lymphadenectomy. She was subsequently treated with a long series of radiation treatments to the right groin. During the days of her radiation treatment, it is suspected that the radiation techniques were somewhat early in their evolution, and quite likely that the patient received massive doses of radiation exposure, exceeding doses which would be considered appropriate today, with techniques which are primitive by today's standards. As a result, the patient has developed soft tissue radiation injury, and has previously been treated at our wound center in the past with a series of approximately 90 hyperbaric oxygen therapy treatments, in 2011. She presented with recurrence of soft tissue radionecrosis in the right groin. Hyperbaric oxygen therapy treatments were initiated, and the patient has undergone a series of 90 additional hyperbaric oxygen treatment sessions. She has shown mild benefit from the hyperbaric oxygen treatments. At this time, there is no clinical evidence of infection or cellulitis in the blanche-ulcer area. However, the patient is responding very slowly to the variety of conventional treatment measures which have been implemented. In review of the patient's past history, each treatment course has been rather protracted in terms of healing. The patient was previously referred for consultation at [facility] (Dr. Harding), which had been arranged by our facility. Medical records related to the patient's visit at [facility] resulted in no significant new recommendations for treatment or management. The patient remains on a well- balanced diet. Given that little progress has been made in recent months, I have contacted and spoken by phone with the [employer] Supervisor of the [facility], Dr. Bassam Alas. Dr. Alas has been very helpful. He has conferred with his colleague, Plastic Surgeon Dr. Cassius Whitman. Dr. Whitman has indicated his willingness to evaluate the patient, and an appointment has been made for November 08, 2018. It is anticipated that there may be consideration of a flap reconstruction for the ulceration in the right groin, though this possibility is yet to be determined, pending Dr. Whitman's evaluation. Plan: The patient has been the recipient of 10 EpiFix applications. A request for preauthorization of PuraPly was denied. Attempts at preauthorization of negative pressure wound therapy have also been denied. We have used a series of [employer] allografts most recently. For now, we are to continue the use of Promogran topically. No new recommendations of significance were elucidated by the wound care facility at [facility], where a second opinion was sought. The patient is to continue with a nutritious diet. Biopsies of the ulceration have been obtained, and the results were negative for malignancy. The patient is now scheduled for consultation with Plastic Surgeon, Dr. Cassius Whitman on November 08, 2018. We will await the results of this consultation, to determine whether some type of flap reconstruction may be offered as an option. Despite all measures thus far, the patient has shown very little progress toward healing. Recent wound cultures, obtained on October 16, 2018, demonstrated very rare Staphylococcus aureus. This is felt to represent skin mare, not appearing to warrant antibiotic treatment. The patient is to return in 2 weeks for reassessment. Influenza vaccine was not administered today. The patient is not a smoker. She stands 5 feet 7 inches tall. She weighs 198 pounds. Her BMI is 31, which places her in a class I weight category. Weight loss has been recommended. She is to collaborate with her primary care physician in this regard.
[2018-11-06 08:37] VITALS: BP 140/89; PULSE 95; RESP 18; TEMP 36.3; BMI 68.3
--- NOTE | 2018-11-06 09:01 | PCM.WC.HP ---
(1) History of uterine cancer Status: Chronic Current Visit: No Code(s): Z85.42 - Personal history of malignant neoplasm of other parts of uterus (2) History of melanoma Status: Chronic Current Visit: Yes Code(s): Z85.820 - Personal history of malignant melanoma of skin (3) Hyperlipidemia Status: Chronic Current Visit: No Code(s): E78.5 - Hyperlipidemia, unspecified (4) GERD (gastroesophageal reflux disease) Status: Chronic Current Visit: No Code(s): K21.9 - Gastro-esophageal reflux disease without esophagitis (5) Ulcer of right groin Status: Chronic Current Visit: Yes Qualifiers: Non-pressure ulcer stage: with fat layer exposed Code(s): L98.499 - Non-pressure chronic ulcer of skin of other sites with unspecified severity (6) Obesity (BMI 30.0-34.9) Status: Chronic Current Visit: No Code(s): E66.9 - Obesity, unspecified (7) Amputee, above knee Status: Chronic Current Visit: No Qualifiers: Laterality: right Code(s): Z89.619 - Acquired absence of unspecified leg above knee (8) Soft tissue radionecrosis Status: Chronic Current Visit: Yes Code(s): L59.8 - Other specified disorders of the skin and subcutaneous tissue related to radiation; Y84.2 - Radiological procedure and radiotherapy as the cause of abnormal reaction of the patient, or of later complication, without mention of misadventure at the time of the procedure (9) soft tissue radiation injury Status: Chronic Current Visit: Yes History of Present Illness Chief Complaint: 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 The patient underwent excision of her melanoma with lymphadenectomy in the right groin. She also underwent lengthy radiation treatments at the [facility] in [place], [place]. Melanoma recurred, and the patient was subsequently treated with monoclonal antibodies in 1984. 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 In 2012, the patient was treated in our wound center for ulcerations of the right upper thigh and groin related to soft tissue radiation necrosis. Treatment included local ulcer care and hyperbaric oxygen therapy. She underwent a total of nearly 90 treatments of hyperbaric oxygen therapy. It is known that she tolerated the therapies well, and derived significant benefit. She relates no history of claustrophobia, or other complications related to the hyperbaric oxygen therapy treatments. She has no history of barotrauma to lungs, ears, etc. Her medical history reveals no evidence of contraindications to hyperbaric oxygen therapy. The patient's current course of management includes a total of 90 sessions of hyperbaric oxygen therapy, which have been completed without total healing of the patient's right groin ulceration. EpiFix allografts have also been used for a series of 10 applications, without total healing. It appears as though the patient's current clinical course is mimicking that of the past, with wound healing which is very recalcitrant to conventional, conservative treatment measures. 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 She has undergone excision of melanoma from the right calf, with lymphadenectomy of the right groin in the 1969's. She subsequently required surgeries of the right thigh related to osteomyelitis, MRSA infection, and radiation injury to the right femoral artery. Ultimately, the patient required right above-knee amputation, performed in 2000. She also has a remote history of open reduction and internal fixation of a right ankle fracture. Allergies/Adverse Reactions: Allergies No Known Allergies Allergy (Verified 06/20/17 09:22) Home Medications: Ambulatory Orders Medication Instructions Recorded Famotidine 20 mg PO 06/20/17 Pravastatin [Pravachol] 20 mg PO DAILY 06/20/17 - Family History Maternal - - The patient's mother is 98 years of age and relatively healthy. The patient's father at age of 79 with a history of cardiomyopathy. Smoking Status: Former smoker Tobacco Use: Non-smoker Review of Systems Constitutional: Denies: Chills, Fever, Weight Change Eyes: Denies: Pain, Vision Change HEENT: Denies: Difficulty Hearing, Difficulty Swallowing, Sinus Congestion Cardiovascular: Denies: Chest Pain, Palpitations Respiratory: Denies: Cough, Shortness of Breath Gastrointestinal: Denies: Diarrhea, Nausea, Vomiting Genitourinary: Denies: Dysuria, Hematuria Endocrine: Denies: Heat/ Cold Intolerance, Polydipsia, Polyuria Hematologic/ Lymphatic: Denies: Easy Bruising, Easy Bleeding - Physical Exam Vital Signs Temp Pulse Resp BP 97.3 F L 95 18 140/89 H 11/06/18 08:37 11/06/18 08:37 11/06/18 08:37 11/06/18 08:37 General: Alert, Oriented x3, Cooperative, No apparent distress, Well developed, Well nourished HEENT: Atraumatic, PERRLA, EOMI, Normocephalic Oral: Moist Mucosa Neck: No JVD Lungs: Normal air movement Abdomen: Non-Distended Extremities: No clubbing, No cyanosis, No edema, No Calf Tenderness, - - A well-healed right above-knee amputation stump is noted. The ulceration in the right groin persists, with little change noted. The inferior and superior portion of the ulceration appears to be relatively well epithelialized. Centrally, however, the ulceration remains open and unhealed. Ulcer margins are not well beveled. There is no significant drainage. There is no sign of infection or cellulitis. Dimensions are documented elsewhere. Skin: No rashes Wound Measurements and Assessment WC - Nurse 1 - General Ulcer Measurement Start: 10/08/18 13:34 Freq: Status: Active Protocol: Activity Type Activity Date Activity User E-Sign Co-Sign Detail Recorded Client Recorded Date Recorded By Document 11/06/18 08:37 AN [id number] 11/06/18 08:51 AN 11/06/18 08:37 Wound Center Nurse 1 [Ulcer Assessment] #5 R Groin -Current Size (cm) - Length 3.5 -Current Size (cm) - Width 0.6 -Current Size (cm) - Depth 0.8 -Total Square Cm 2.10 -Classification - Thickness Full Thickness without Exposed Support Structure -Exudate Amt Small -Exudate Type Serosanguineous -Wound Margin Thickened -Granulation Amt Small (1-33%) -Granulation Quality [place] -Necrosis Amt Large (67-100%) -Necrotic Tissue Type Eschar -Structure Exposed None/Limited to Skin Breakdown -Texture (Blanche-wound Skin Appearance) Assessed Scarring -Moisture (Blanche-wound Skin Appearance Assessed ) -Color (Blanche-wound Skin Appearance) Assessed -Temperature (Blanche-wound Skin No Abnormality Appearance) (Pt Warm) -Tenderness on Palpation (Blanche-wound No Skin Appearance) -Ulcer Cleansing Rinsed/ Irrigated with Saline -Foul Odor after Cleansing No -Anesthetic Used 4% Lidocaine Solution - Nurse 2 - General Ulcer CM Notes Start: 10/08/18 13:34 Freq: Status: Active Protocol: Activity Type Activity Date Activity User E-Sign Co-Sign Detail Recorded Client Recorded Date Recorded By Document 11/06/18 08:55 AN [id number] 11/06/18 09:01 AN 11/06/18 08:55 Wound Center Nurse 2 [Procedure/Treatment] -Time 08:55 -Correct Patient Yes -Correct Side, Site, Position Yes -Correct Procedure Yes -Procedure Performed Yes -Type of Procedure Debridement -Clinical Debridement Subcutaneous -Post Debridement Size (cm) - Length 3.5 -Post Debridement Size (cm) - Width 0.6 -Post Debridement Size (cm) - Depth 0.8 -Total Square Cm 2.10 -Wound/Ulcer Outcome Not Healed -Ulcer Cleansing Rinsed/ Irrigated with Saline -Foul Odor after Cleansing No -Bioengineered Tissue No -Bleeding Controlled with Pressure -Offloading No -Treatment Response Procedure Tolerated Well [See Physician Procedure note for Specifics] Pain Scale: 0-10 Numeric [Pain] -Is Patient Pain Free? Yes Musculoskeletal: No Muscle Wasting Neurological: Cranial nerves II-XII grossly intact, Neuro grossly intact Psych/Mental Status: Normal Affect, Appropriate, Alert and oriented to time, place, person, mood and affect Debridement Note Post-Debridement Measurements/Treatment - Nurse 2 - General Ulcer CM Notes Start: 10/08/18 13:34 Freq: Status: Active Protocol: Activity Type Activity Date Activity User E-Sign Co-Sign Detail Recorded Client Recorded Date Recorded By Document 10/08/18 15:05 DV [id number] 10/08/18 15:07 DV Document 10/16/18 08:46 DV [id number] 10/16/18 09:00 DV Document 10/23/18 10:12 DV [id number] 10/23/18 10:17 DV Document 11/06/18 08:55 AN [id number] 11/06/18 09:01 AN 10/08/18 10/16/18 10/23/18 15:05 08:46 10:12 Wound Center Nurse 2 #5 R Groin -Time 15:05 10:13 -Correct Patient Yes Yes Yes -Correct Side, Site, Position Yes Yes Yes -Correct Procedure Yes Yes Yes -Procedure Performed Yes Yes Yes -Type of Procedure Debridement Debridement Debridement -Clinical Debridement Subcutaneous Subcutaneous Subcutaneous -Post Debridement Size (cm) - Length 1.0 4.0 4.5 -Post Debridement Size (cm) - Width 1.0 1.0 1.0 -Post Debridement Size (cm) - Depth 1.7 1.1 0.5 -Total Square Cm 1.00 4.00 4.50 -Wound/Ulcer Outcome Not Healed Not Healed Not Healed -Ulcer Cleansing Rinsed/ Rinsed/ Rinsed/ Irrigated with Irrigated with Irrigated with Saline Saline Saline -Foul Odor after Cleansing No No No -Bioengineered Tissue No No No -Bleeding Controlled with Pressure Pressure Pressure -Offloading No No No -Treatment Response Procedure Procedure Procedure Tolerated Well Tolerated Well Tolerated Well Pain Scale: 0-10 Numeric Is Patient Pain Free? Yes Yes Yes 11/06/18 08:55 Wound Center Nurse 2 #5 R Groin -Time 08:55 -Correct Patient Yes -Correct Side, Site, Position Yes -Correct Procedure Yes -Procedure Performed Yes -Type of Procedure Debridement -Clinical Debridement Subcutaneous -Post Debridement Size (cm) - Length 3.5 -Post Debridement Size (cm) - Width 0.6 -Post Debridement Size (cm) - Depth 0.8 -Total Square Cm 2.10 -Wound/Ulcer Outcome Not Healed -Ulcer Cleansing Rinsed/ Irrigated with Saline -Foul Odor after Cleansing No -Bioengineered Tissue No -Bleeding Controlled with Pressure -Offloading No -Treatment Response Procedure Tolerated Well Pain Scale: 0-10 Numeric Is Patient Pain Free? 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 In the 1970's, she was diagnosed with malignant melanoma of the right calf, with metastasis to lymph nodes in the right groin. She underwent excision of the melanoma with right groin lymphadenectomy. She was subsequently treated with a long series of radiation treatments to the right groin. During the days of her radiation treatment, it is suspected that the radiation techniques were somewhat early in their evolution, and quite likely that the patient received massive doses of radiation exposure, exceeding doses which would be considered appropriate today, with techniques which are primitive by today's standards. As a result, the patient has developed soft tissue radiation injury, and has previously been treated at our wound center in the past with a series of approximately 90 hyperbaric oxygen therapy treatments, in 2011. She presented with recurrence of soft tissue radionecrosis in the right groin. Hyperbaric oxygen therapy treatments were initiated, and the patient has undergone a series of 90 additional hyperbaric oxygen treatment sessions. She has shown mild benefit from the hyperbaric oxygen treatments. At this time, there is no clinical evidence of infection or cellulitis in the blanche-ulcer area. However, the patient is responding very slowly to the variety of conventional treatment measures which have been implemented. In review of the patient's past history, each treatment course has been rather protracted in terms of healing. The patient was previously referred for consultation at [facility] (Dr. Harding), which had been arranged by our facility. Medical records related to the patient's visit at [facility] resulted in no significant new recommendations for treatment or management. The patient remains on a well-balanced diet. Given that little progress has been made in recent months, I have contacted and spoken by phone with the Wave S[employer]ing Machine Operator of the [facility], Dr. aBssam Alas. Dr. Alas has been very helpful. He has conferred with his colleague, Plastic Surgeon Dr. Cassius Whitman. Dr. Whitman has indicated his willingness to evaluate the patient, and an appointment has been made for November 08, 2018. It is anticipated that there may be consideration of a flap reconstruction for the ulceration in the right groin, though this possibility is yet to be determined, pending Dr. Whitman's evaluation. Plan: The patient has been the recipient of 10 EpiFix applications. A request for preauthorization of PuraPly was denied. A series of 90 hyperbaric oxygen therapy sessions have also been completed. Attempts at preauthorization of negative pressure wound therapy have also been denied. We have used a series of Bonham allografts most recently. For now, we are to continue the use of Promogran topically. No new recommendations of significance were elucidated by the wound care facility at [facility], where a second opinion was sought. The patient is to continue with a nutritious diet. Biopsies of the ulceration have been obtained, and the results were negative for malignancy. The patient is now scheduled for consultation with Plastic Surgeon, Dr. Cassius Whitman on November 08, 2018. We will await the results of this consultation, to determine whether some type of flap reconstruction may be offered as an option. Despite all measures thus far, the patient has shown very little progress toward healing. Recent wound cultures, obtained on October 16, 2018, demonstrated very rare Staphylococcus aureus. This was felt to represent skin mare, not appearing to warrant antibiotic treatment. The patient is to return in 2 weeks for reassessment. Influenza vaccine was not administered today. The patient is not a smoker. She stands 5 feet 7 inches tall. She weighs 198 pounds. Her BMI is 31, which places her in a class I weight category. Weight loss has been recommended. She is to collaborate with her primary care physician in this regard.
--- NOTE | 2018-11-06 09:05 | HP.PCM_ITS ---
(1) History of uterine cancer Status: Chronic Current Visit: No Code(s): Z85.42 - Personal history of malignant neoplasm of other parts of uterus (2) History of melanoma Status: Chronic Current Visit: Yes Code(s): Z85.820 - Personal history of malignant melanoma of skin (3) Hyperlipidemia Status: Chronic Current Visit: No Code(s): E78.5 - Hyperlipidemia, unspecified (4) GERD (gastroesophageal reflux disease) Status: Chronic Current Visit: No Code(s): K21.9 - Gastro-esophageal reflux disease without esophagitis (5) Ulcer of right groin Status: Chronic Current Visit: Yes Qualifiers: Non-pressure ulcer stage: with fat layer exposed Code(s): L98.499 - Non-pressure chronic ulcer of skin of other sites with unspecified severity (6) Obesity (BMI 30.0-34.9) Status: Chronic Current Visit: No Code(s): E66.9 - Obesity, unspecified (7) Amputee, above knee Status: Chronic Current Visit: No Qualifiers: Laterality: right Code(s): Z89.619 - Acquired absence of unspecified leg above knee (8) Soft tissue radionecrosis Status: Chronic Current Visit: Yes Code(s): L59.8 - Other specified disorders of the skin and subcutaneous tissue related to radiation; Y84.2 - R adiological procedure and radiotherapy as the cause of abnormal reaction of the patient, or of later complication, without mention of misadventure at the time of the procedure (9) soft tissue radiation injury Status: Chronic Current Visit: Yes History of Present Illness Chief Complaint: 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 The patient underwent excision of her melanoma with lymphadenecto my in the right groin. She also underwent lengthy radiation treatments at the [facility] in [place], [place]. Melanoma recurred, and the patient was subsequently treated with monoclonal antibodies in 1984. 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 Treatment included local ulcer care and hyperbaric oxygen therapy. She underwent a total of nearly 90 treatments of hyperbaric oxygen therapy. It is known that she tolerated the therapies well, and derived significant benefit. She relates no history of claustrophobia, or other complications related to the hyperbaric oxygen therapy treatments. She has no history of barotrauma to lungs, ears, etc. Her medical history reveals no evidence of contraindications to hyperbaric oxygen therapy. The patient's current course of management includes a total of 90 sessions of hyperbaric oxygen therapy, which have been completed without total healing of the patient's right groin ulceration. EpiFix allografts have also been used for a series of 10 applications, without total healing. It appears as though the patient's current clinical course is mimicking that of the past, with wound healing which is very recalcitrant to conventional, conservative treatment measures. 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 She has undergone excision of melanoma from the right calf, with lymphadenectomy of the right groin in the 1969's. She subsequently required surgeries of the right thigh related to osteomyelitis, MRSA infection, and radiation injury to the right femoral artery. Ultimately, the patient required right above-knee amputation, performed in 2000. She also has a remote history of open reduction and internal fixation of a right ankle fracture. Allergies/Adverse Reactions: Allergies No Known Allergies Allergy (Verified 06/20/17 09:22) Home Medications: Ambulatory Orders Medication Instructions Recorded Famotidine 20 mg PO 06/20/17 Pravastatin [Pravachol] 20 mg PO DAILY 06/20/17 - Family History Maternal - - The patient's mother is 98 years of age and relatively healthy. The patient's father at age of 79 with a history of cardiomyopathy. Smoking Status: Former smoker Tobacco Use: Non-smoker Review of Systems Constitutional: Denies: Chills, Fever, Weight Change Eyes: Denies: Pain, Vision Change HEENT: Denies: Difficulty Hearing, Difficulty Swallowing, Sinus Congestion Cardiovascular: Denies: Chest Pain, Palpitations Respiratory: Denies: Cough, Shortness of Breath Gastrointestinal: Denies: Diarrhea, Nausea, Vomiting Genitourinary: Denies: Dysuria, Hematuria Endocrine: Denies: Heat/ Cold Intolerance, Polydipsia, Polyuria Hematologic/ Lymphatic: Denies: Easy Bruising, Easy Bleeding - Physical Exam Vital Signs Temp Pulse Resp BP 97.3 F L 95 18 140/89 H 11/06/18 08:37 11/06/18 08:37 11/06/18 08:37 11/06/18 08:37 General: Alert, Oriented x3, Cooperative, No apparent distress, Well developed, Well nourished HEENT: Atraumatic, PERRLA, EOMI, Normocephalic Oral: Moist Mucosa Neck: No JVD Lungs: Normal air movement Abdomen: Non-Distended Extremities: No clubbing, No cyanosis, No edema, No Calf Tenderness, - - A well- healed right above-knee amputation stump is noted. The ulceration in the right groin persists, with little change noted. The inferior and superior portion of the ulceration appears to be relatively well epithelialized. Centrally, however , the ulceration remains open and unhealed. Ulcer margins are not well beveled. There is no significant drainage. There is no sign of infection or cellulitis. Dimensions are documented elsewhere. Skin: No rashes Wound Measurements and Assessment WC - Nurse 1 - General Ulcer Measurement Start: 10/08/18 13:34 Freq: Status: Active Protocol: Activity Type Activity Date Activity User E-Sign Co-Sign Detail Recorded Client Recorded Date Recorded By Document 11/06/18 08:37 AN [id number] 11/06/18 08:51 AN 11/06/18 08:37 Wound Center Nurse 1 [Ulcer Assessment] #5 R Groin -Current Size (cm) - Length 3.5 -Current Size (cm) - Width 0.6 -Current Size (cm) - Depth 0.8 -Total Square Cm 2.10 -Classification - Thickness Full Thickness without Exposed Support Structure -Exudate Amt Small -Exudate Type Serosanguineous -Wound Margin Thickened -Granulation Amt Small (1-33%) -Granulation Quality [place] -Necrosis Amt Large (67-100%) -Necrotic Tissue Type Eschar -Structure Exposed None/Limited to Skin Breakdown -Texture (Blanche-wound Skin Appearance) Assessed Scarring -Moisture (Blanche-wound Skin Appearance Assessed ) -Color (Blanche-wound Skin Appearance) Assessed -Temperature (Blanche-wound Skin No Abnormality Appearance) (Pt Warm) -Tenderness on Palpation (Blanche-wound No Skin Appearance) -Ulcer Cleansing Rinsed/ Irrigated with Saline -Foul Odor after Cleansing No -Anesthetic Used 4% Lidocaine Solution - Nurse 2 - General Ulcer CM Notes Start: 10/08/18 13:34 Freq: Status: Active Protocol: Activity Type Activity Date Activity User E-Sign Co-Sign Detail Recorded Client Recorded Date Recorded By Document 11/06/18 08:55 AN [id number] 11/06/18 09:01 AN 11/06/18 08:55 Wound Center Nurse 2 [Procedure/Treatment] -Time 08:55 -Correct Patient Yes -Correct Side, Site, Position Yes -Correct Procedure Yes -Procedure Performed Yes -Type of Procedure Debridement -Clinical Debridement Subcutaneous -Post Debridement Size (cm) - Length 3.5 -Post Debridement Size (cm) - Width 0.6 -Post Debridement Size (cm) - Depth 0.8 -Total Square Cm 2.10 -Wound/Ulcer Outcome Not Healed -Ulcer Cleansing Rinsed/ Irrigated with Saline -Foul Odor after Cleansing No -Bioengineered Tissue No -Bleeding Controlled with Pressure -Offloading No -Treatment Response Procedure Tolerated Well [See Physician Procedure note for Specifics] Pain Scale: 0-10 Numeric [Pain] -Is Patient Pain Free? Yes Musculoskeletal: No Muscle Wasting Neurological: Cranial nerves II-XII grossly intact, Neuro grossly intact Psych/Mental Status: Normal Affect, Appropriate, Alert and oriented to time, place, person, mood and affect Debridement Note Post-Debridement Measurements/Treatment - Nurse 2 - General Ulcer CM Notes Start: 10/08/18 13:34 Freq: Status: Active Protocol: Activity Type Activity Date Activity User E-Sign Co-Sign Detail Recorded Client Recorded Date Recorded By Document 10/08/18 15:05 DV [id number] 10/08/18 15:07 DV Document 10/16/18 08:46 DV [id number] 04/09/19 09:00 DV Document 10/23/18 10:12 DV [id number] 10/23/18 10:17 DV Document 11/06/18 08:55 AN [id number] 11/06/18 09:01 AN 10/08/18 10/16/18 10/23/18 15:05 08:46 10:12 Wound Center Nurse 2 #5 R Groin -Time 15:05 10:13 -Correct Patient Yes Yes Yes -Correct Side, Site, Position Yes Yes Yes -Correct Procedure Yes Yes Yes -Procedure Performed Yes Yes Yes -Type of Procedure Debridement Debridement Debridement -Clinical Debridement Subcutaneous Subcutaneous Subcutaneous -Post Debridement Size (cm) - Length 1.0 4.0 4.5 -Post Debridement Size (cm) - Width 1.0 1.0 1.0 -Post Debridement Size (cm) - Depth 1.7 1.1 0.5 -Total Square Cm 1.00 4.00 4.50 -Wound/Ulcer Outcome Not Healed Not Healed Not Healed -Ulcer Cleansing Rinsed/ Rinsed/ Rinsed/ Irrigated with Irrigated with Irrigated with Saline Saline Saline -Foul Odor after Cleansing No No No -Bioengineered Tissue No No No -Bleeding Controlled with Pressure Pressure Pressure -Offloading No No No -Treatment Response Procedure Procedure Procedure Tolerated Well Tolerated Well Tolerated Well Pain Scale: 0-10 Numeric Is Patient Pain Free? Yes Yes Yes 11/06/18 08:55 Wound Center Nurse 2 #5 R Groin -Time 08:55 -Correct Patient Yes -Correct Side, Site, Position Yes -Correct Procedure Yes -Procedure Performed Yes -Type of Procedure Debridement -Clinical Debridement Subcutaneous -Post Debridement Size (cm) - Length 3.5 -Post Debridement Size (cm) - Width 0.6 -Post Debridement Size (cm) - Depth 0.8 -Total Square Cm 2.10 -Wound/Ulcer Outcome Not Healed -Ulcer Cleansing Rinsed/ Irrigated with Saline -Foul Odor after Cleansing No -Bioengineered Tissue No -Bleeding Controlled with Pressure -Offloading No -Treatment Response Procedure Tolerated Well Pain Scale: 0-10 Numeric Is Patient Pain Free? 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 In the 1970's, she was diagnosed with malignant melanoma of the right calf, with metastasis to lymph nodes in the right groin. She underwent excision of the melanoma with right groin lymphadenectomy. She was subsequently treated with a long series of radiation treatments to the right groin. During the days of her radiation treatment, it is suspected that the radiation techniques were somewhat early in their evolution, and quite likely that the patient received massive doses of radiation exposure, exceeding doses which would be considered appropriate today, with techniques which are primitive by today's standards. As a result, the patient has developed soft tissue radiation injury, and has previously been treated at our wound center in the past with a series of approximately 90 hyperbaric oxygen therapy treatments, in 2011. She presented with recurrence of soft tissue radionecrosis in the right groin. Hyperbaric oxygen therapy treatments were initiated, and the patient has undergone a series of 90 additional hyperbaric oxygen treatment sessions. She has shown mild benefit from the hyperbaric oxygen treatments. At this time, there is no clinical evidence of infection or cellulitis in the blanche-ulcer area. However, the patient is responding very slowly to the variety of conventional treatment measures which have been implemented. In review of the patient's past history, each treatment course has been rather protracted in terms of healing. The patient was previously referred for consultation at [facility] (Dr. Harding), which had been arranged by our facility. Medical records related to the patient's visit at [facility] resulted in no significant new recommendations for treatment or management. The patient remains on a well- balanced diet. Given that little progress has been made in recent months, I have contacted and spoken by phone with the [facility] Chief Delivery of [facility], Dr. Bassam Alas. Dr. Alas has been very helpful. He has conferred with his colleague, Plastic Surgeon Dr. Cassius Whitman. Dr. Whitman has indicated his willingness to evaluate the patient, and an appointment has been made for November 08, 2018. It is anticipated that there may be consideration of a flap reconstruction for the ulceration in the right groin, though this possibility is yet to be determined, pending Dr. Whitman's evaluation. Plan: The patient has been the recipient of 10 EpiFix applications. A request for preauthorization of PuraPly was denied. A series of 90 hyperbaric oxygen therapy sessions have also been completed. Attempts at preauthorization of negative pressure wound therapy have also been denied. We have used a series of [place] allografts most recently. For now, we are to continue the use of Promogran topically. No new recommendations of significance were elucidated by the wound care facility at [facility], where a second opinion was sought. The patient is to continue with a nutritious diet. Biopsies of the ulceration have been obtained, and the results were negative for malignancy. The patient is now scheduled for consultation with Plastic Surgeon, Dr. Cassius Whitman on November 08, 2018. We will await the results of this consultation, to determine whether some type of flap reconstruction may be offered as an option. Despite all measures thus far, the patient has shown very little progress toward healing. Recent wound cultures, obtained on October 16, 2018, demonstrated very rare Staphylococcus aureus. This was felt to represent skin mare, not appearing to warrant antibiotic treatment. The patient is to return in 2 weeks for reassessment. Influenza vaccine was not administered today. The patient is not a smoker. She stands 5 feet 7 inches tall. She weighs 198 pounds. Her BMI is 31, which places her in a class I weight category. Weight loss has been recommended. She is to collaborate with her primary care physician in this regard.
== END 2018-11-06 23:59 ==
LOC: WC 08:30
PROVIDERS: Family Provider Family Medicine; PCP Family Medicine; Referring Provider Surgery; Visit Provider Surgery
DX: L59.8 Other specified disorders of the skin and subcutaneous tissue related to radiation (principal); Y84.2 Radiological procedure and radiotherapy as the cause of abnormal reaction of the patient, or of later complication, without mention of misadventure at the time of the procedure; Z85.820 Personal history of malignant melanoma of skin; E78.5 Hyperlipidemia, unspecified; K21.9 Gastro-esophageal reflux disease without esophagitis; L98.492 Non-pressure chronic ulcer of skin of other sites with fat layer exposed; E66.9 Obesity, unspecified; Z68.44 Body mass index [BMI] 60.0-69.9, adult; Z71.3 Dietary counseling and surveillance; Z89.619 Acquired absence of unspecified leg above knee; Z87.891 Personal history of nicotine dependence
CPT/HCPCS: 11042; 87070; 87075; 87077; 87186; 87205

== ENCOUNTER 2018-11-27 08:54 | Outpatient (RCR) | payer OTHER, SELFPAY ==
[2018-11-07 00:56] VITALS: BP 140/89; PULSE 95; RESP 18; TEMP 36.3
[2018-11-27 08:54] VITALS: BP 155/91; PULSE 98; RESP 18; TEMP 36.5; BMI 68.3
--- NOTE | 2018-11-27 09:33 | PCM.WC.HP ---
(1) History of uterine cancer Status: Chronic Current Visit: No Code(s): Z85.42 - Personal history of malignant neoplasm of other parts of uterus (2) History of melanoma Status: Chronic Current Visit: Yes Code(s): Z85.820 - Personal history of malignant melanoma of skin (3) Hyperlipidemia Status: Chronic Current Visit: No Code(s): E78.5 - Hyperlipidemia, unspecified (4) GERD (gastroesophageal reflux disease) Status: Chronic Current Visit: No Code(s): K21.9 - Gastro-esophageal reflux disease without esophagitis (5) Ulcer of right groin Status: Chronic Current Visit: Yes Qualifiers: Non-pressure ulcer stage: with fat layer exposed Code(s): L98.499 - Non-pressure chronic ulcer of skin of other sites with unspecified severity (6) Obesity (BMI 30.0-34.9) Status: Chronic Current Visit: No Code(s): E66.9 - Obesity, unspecified (7) Amputee, above knee Status: Chronic Current Visit: Yes Qualifiers: Laterality: right Code(s): Z89.619 - Acquired absence of unspecified leg above knee (8) Soft tissue radionecrosis Status: Chronic Current Visit: Yes Code(s): L59.8 - Other specified disorders of the skin and subcutaneous tissue related to radiation; Y84.2 - Radiological procedure and radiotherapy as the cause of abnormal reaction of the patient, or of later complication, without mention of misadventure at the time of the procedure (9) soft tissue radiation injury Status: Chronic Current Visit: Yes History of Present Illness Chief Complaint: 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 The patient underwent excision of her melanoma with lymphadenectomy in the right groin. She also underwent lengthy radiation treatments at the [facility] in [place], [place]. Melanoma recurred, and the patient was subsequently treated with monoclonal antibodies in 1984. 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 In 2012, the patient was treated in our wound center for ulcerations of the right upper thigh and groin related to soft tissue radiation necrosis. Treatment included local ulcer care and hyperbaric oxygen therapy. She underwent a total of nearly 90 treatments of hyperbaric oxygen therapy. It is known that she tolerated the therapies well, and derived significant benefit. She relates no history of claustrophobia, or other complications related to the hyperbaric oxygen therapy treatments. She has no history of barotrauma to lungs, ears, etc. Her medical history reveals no evidence of contraindications to hyperbaric oxygen therapy. The patient's current course of management includes a total of 90 sessions of hyperbaric oxygen therapy, which have been completed without total healing of the patient's right groin ulceration. EpiFix allografts have also been used for a series of 10 applications, without total healing. It appears as though the patient's current clinical course is mimicking that of the past, with wound healing which is very recalcitrant to conventional, conservative treatment measures. 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 She has undergone excision of melanoma from the right calf, with lymphadenectomy of the right groin in the 1969's. She subsequently required surgeries of the right thigh related to osteomyelitis, MRSA infection, and radiation injury to the right femoral artery. Ultimately, the patient required right above-knee amputation, performed in 2000. She also has a remote history of open reduction and internal fixation of a right ankle fracture. Allergies/Adverse Reactions: Allergies No Known Allergies Allergy (Verified 06/20/17 09:22) Home Medications: Ambulatory Orders Medication Instructions Recorded Famotidine 20 mg PO 06/20/17 Pravastatin [Pravachol] 20 mg PO DAILY 06/20/17 - Family History Maternal - - The patient's mother is 98 years of age and relatively healthy. The patient's father at age of 79 with a history of cardiomyopathy. Smoking Status: Former smoker Tobacco Use: Non-smoker Review of Systems Constitutional: Denies: Chills, Fever, Weight Change Eyes: Denies: Pain, Vision Change HEENT: Denies: Difficulty Hearing, Difficulty Swallowing, Sinus Congestion Cardiovascular: Denies: Chest Pain, Palpitations Respiratory: Denies: Cough, Shortness of Breath Gastrointestinal: Denies: Diarrhea, Nausea, Vomiting Genitourinary: Denies: Dysuria, Hematuria Endocrine: Denies: Heat/ Cold Intolerance, Polydipsia, Polyuria Hematologic/ Lymphatic: Denies: Easy Bruising, Easy Bleeding - Physical Exam Vital Signs Temp Pulse Resp BP 97.7 F L 98 18 155/91 H 11/27/18 08:54 11/27/18 08:54 11/27/18 08:54 11/27/18 08:54 General: Alert, Oriented x3, Cooperative, No apparent distress, Well developed, Well nourished HEENT: Atraumatic, PERRLA, EOMI, Normocephalic Oral: Moist Mucosa Neck: No JVD Lungs: Normal air movement Abdomen: Non-Distended Extremities: No clubbing, No cyanosis, No edema, No Calf Tenderness, - - A well-healed right above-knee amputation stump is noted. The ulceration in the right groin is little changed in appearance or size. There is no sign of infection or cellulitis. There is no drainage. Dimensions are documented elsewhere. There is a moderate amount of bioburden. Skin: No rashes Wound Measurements and Assessment WC - Nurse 1 - General Ulcer Measurement Start: 11/27/18 08:54 Freq: Status: Active Protocol: Activity Type Activity Date Activity User E-Sign Co-Sign Detail Recorded Client Recorded Date Recorded By Document 11/27/18 08:54 [id number] 11/27/18 09:04 DL 11/27/18 08:54 Wound Center Nurse 1 [Ulcer Assessment] #5 R Groin -Current Size (cm) - Length 2.6 -Current Size (cm) - Width 0.6 -Current Size (cm) - Depth 1 -Total Square Cm 1.56 -Photo Taken No -Exudate Amt Small -Exudate Type Serosanguineous -Wound Margin Distinct, Outline Attached -Granulation Amt Large (67-100%) -Granulation Quality [place] -Necrosis Amt Small (1-33%) -Necrotic Tissue Type Adherent Slough -Structure Exposed N/A -Texture (Blanche-wound Skin Appearance) Scarring -Moisture (Blanche-wound Skin Appearance Dry/Scaly ) -Color (Blanche-wound Skin Appearance) No Abnormality -Temperature (Blanche-wound Skin No Abnormality Appearance) (Pt Warm) -Tenderness on Palpation (Blanche-wound No Skin Appearance) -Ulcer Cleansing Rinsed/ Irrigated with Saline -Foul Odor after Cleansing No -Anesthetic Used 4% Lidocaine Solution - Nurse 2 - General Ulcer CM Notes Start: 11/27/18 08:54 Freq: Status: Active Protocol: Activity Type Activity Date Activity User E-Sign Co-Sign Detail Recorded Client Recorded Date Recorded By Document 11/27/18 09:20 DV [id number] 11/27/18 09:25 DV 11/27/18 09:20 Wound Center Nurse 2 [Procedure/Treatment] -Time 09:21 -Correct Patient Yes -Correct Side, Site, Position Yes -Correct Procedure Yes -Procedure Performed Yes -Type of Procedure Debridement -Clinical Debridement Subcutaneous -Post Debridement Size (cm) - Length 3.0 -Post Debridement Size (cm) - Width 1.2 -Post Debridement Size (cm) - Depth 1.0 -Total Square Cm 3.60 -Wound/Ulcer Outcome Not Healed -Ulcer Cleansing Rinsed/ Irrigated with Saline -Foul Odor after Cleansing No -Bioengineered Tissue No -Bleeding Controlled with Pressure -Offloading No -Treatment Response Procedure Tolerated Well [See Physician Procedure note for Specifics] Pain Scale: 0-10 Numeric [Pain] -Is Patient Pain Free? Yes Musculoskeletal: No Muscle Wasting Neurological: Cranial nerves II-XII grossly intact, Neuro grossly intact Psych/Mental Status: Normal Affect, Appropriate, Alert and oriented to time, place, person, mood and affect Debridement Note Post-Debridement Measurements/Treatment - Nurse 2 - General Ulcer CM Notes Start: 11/27/18 08:54 Freq: Status: Active Protocol: Activity Type Activity Date Activity User E-Sign Co-Sign Detail Recorded Client Recorded Date Recorded By Document 11/27/18 09:20 DV [id number] 11/27/18 09:25 DV 11/27/18 09:20 Wound Center Nurse 2 #5 R Groin -Time 09:21 -Correct Patient Yes -Correct Side, Site, Position Yes -Correct Procedure Yes -Procedure Performed Yes -Type of Procedure Debridement -Clinical Debridement Subcutaneous -Post Debridement Size (cm) - Length 3.0 -Post Debridement Size (cm) - Width 1.2 -Post Debridement Size (cm) - Depth 1.0 -Total Square Cm 3.60 -Wound/Ulcer Outcome Not Healed -Ulcer Cleansing Rinsed/ Irrigated with Saline -Foul Odor after Cleansing No -Bioengineered Tissue No -Bleeding Controlled with Pressure -Offloading No -Treatment Response Procedure Tolerated Well Pain Scale: 0-10 Numeric Is Patient Pain Free? 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 In the 1970's, she was diagnosed with malignant melanoma of the right calf, with metastasis to lymph nodes in the right groin. She underwent excision of the melanoma with right groin lymphadenectomy. She was subsequently treated with a long series of radiation treatments to the right groin. During the days of her radiation treatment, it is suspected that the radiation techniques were somewhat early in their evolution, and quite likely that the patient received massive doses of radiation exposure, exceeding doses which would be considered appropriate today, with techniques which are primitive by today's standards. As a result, the patient has developed soft tissue radiation injury, and has previously been treated at our wound center in the past with a series of approximately 90 hyperbaric oxygen therapy treatments, in 2011. She presented with recurrence of soft tissue radionecrosis in the right groin. Hyperbaric oxygen therapy treatments were initiated, and the patient has undergone a series of 90 additional hyperbaric oxygen treatment sessions. She has shown mild benefit from the hyperbaric oxygen treatments. At this time, there is no clinical evidence of infection or cellulitis in the blanche-ulcer area. However, the patient is responding very slowly to the variety of conventional treatment measures which have been implemented. In review of the patient's past history, each treatment course has been rather protracted in terms of healing. The patient was previously referred for consultation at [facility] (Dr. Harding), which had been arranged by our facility. Medical records related to the patient's visit at [facility] resulted in no significant new recommendations for treatment or management. The patient remains on a well-balanced diet. Given that little progress has been made in recent months, I have contacted and spoken by phone with the [employer] Roaster of the [facility], Dr. Bassam Alas. Dr. Alas has been very helpful. He has conferred with his colleague, Plastic Surgeon Dr. Cassius Whitman. Dr. Whitman has indicated his willingness to evaluate the patient, and the patient has now been evaluated by Dr. Frausto, having had an appointment last week. The patient was very impressed with her interaction with the plastic surgeon. A number of options were discussed. Dr. Frausto has proposed a rectus abdominis myocutaneous flap. As a prelude to flap reconstruction, the patient is scheduled to undergo a CT angiogram at [facility] on December 13, 2018. Plan: The patient has been the recipient of 10 EpiFix applications. A request for preauthorization of PuraPly was denied. A series of 90 hyperbaric oxygen therapy sessions have also been completed. Attempts at preauthorization of negative pressure wound therapy have also been denied. We have used a series of [place] allografts most recently. For now, we are to continue the use of Mary topically. The patient is to continue with a nutritious diet. Biopsies of the ulceration have been obtained, and the results were negative for malignancy. The patient is now to be co-managed by Plastic Surgeon, Dr. Cassius Whitman, at [facility]. It is anticipated that the patient will likely undergo a rectus abdominis myocutaneous flap reconstruction in the near future. The patient is to return in 2 weeks for reassessment. Influenza vaccine was not administered today. The patient is not a smoker. She stands 5 feet 7 inches tall. She weighs 198 pounds. Her BMI is 31, which places her in a class I weight category. Weight loss has been recommended. She is to collaborate with her primary care physician in this regard.
--- NOTE | 2018-11-27 09:48 | HP.PCM_ITS ---
(1) History of uterine cancer Status: Chronic Current Visit: No Code(s): Z85.42 - Personal history of malignant neoplasm of other parts of uterus (2) History of melanoma Status: Chronic Current Visit: Yes Code(s): Z85.820 - Personal history of malignant melanoma of skin (3) Hyperlipidemia Status: Chronic Current Visit: No Code(s): E78.5 - Hyperlipidemia, unspecified (4) GERD (gastroesophageal reflux disease) Status: Chronic Current Visit: No Code(s): K21.9 - Gastro-esophageal reflux disease without esophagitis (5) Ulcer of right groin Status: Chronic Current Visit: Yes Qualifiers: Non-pressure ulcer stage: with fat layer exposed Code(s): L98.499 - Non-pressure chronic ulcer of skin of other sites with unspecified severity (6) Obesity (BMI 30.0-34.9) Status: Chronic Current Visit: No Code(s): E66.9 - Obesity, unspecified (7) Amputee, above knee Status: Chronic Current Visit: Yes Qualifiers: Laterality: right Code(s): Z89.619 - Acquired absence of unspecified leg above knee (8) Soft tissue radionecrosis Status: Chronic Current Visit: Yes Code(s): L59.8 - Other specified disorders of the skin and subcutaneous tissue related to radiation; Y84.2 - Radiological procedure and radiotherapy as the cause of abnormal reaction of the patient, or of later complication, without mention of misadventure at the time of the procedure (9) soft tissue radiation injury Status: Chronic Current Visit: Yes History of Present Illness Chief Complaint: 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 The patient underwent excision of her melanoma with lymphadenect sharmaine in the right groin. She also underwent lengthy radiation treatments at the [facility] in [place], [place]. Melanoma recurred, and the patient was subsequently treated with monoclonal antibodies in 1984. 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 Treatment included local ulcer care and hyperbaric oxygen therapy. She underwent a total of nearly 90 treatments of hyperbaric oxygen therapy. It is known that she tolerated the therapies well, and derived significant benefit. She relates no history of claustrophobia, or other complications related to the hyperbaric oxygen therapy treatments. She has no history of barotrauma to lungs, ears, etc. Her medical history reveals no evidence of contraindications to hyperbaric oxygen therapy. The patient's current course of management includes a total of 90 sessions of hyperbaric oxygen therapy, which have been completed without total healing of the patient's right groin ulceration. EpiFix allografts have also been used for a series of 10 applications, without total healing. It appears as though the patient's current clinical course is mimicking that of the past, with wound healing which is very recalcitrant to conventional, conservative treatment measures. 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 She has undergone excision of melanoma from the right calf, with lymphadenectomy of the right groin in the 1969's. She subsequently required surgeries of the right thigh related to osteomyelitis, MRSA infection, and radiation injury to the right femoral artery. Ultimately, the patient required right above-knee amputation, performed in 2000. She also has a remote history of open reduction and internal fixation of a right ankle fracture. Allergies/Adverse Reactions: Allergies No Known Allergies Allergy (Verified 06/20/17 09:22) Home Medications: Ambulatory Orders Medication Instructions Recorded Famotidine 20 mg PO 06/20/17 Pravastatin [Pravachol] 20 mg PO DAILY 06/20/17 - Family History Maternal - - The patient's mother is 98 years of age and relatively healthy. The patient's father at age of 79 with a history of cardiomyopathy. Smoking Status: Former smoker Tobacco Use: Non-smoker Review of Systems Constitutional: Denies: Chills, Fever, Weight Change Eyes: Denies: Pain, Vision Change HEENT: Denies: Difficulty Hearing, Difficulty Swallowing, Sinus Congestion Cardiovascular: Denies: Chest Pain, Palpitations Respiratory: Denies: Cough, Shortness of Breath Gastrointestinal: Denies: Diarrhea, Nausea, Vomiting Genitourinary: Denies: Dysuria, Hematuria Endocrine: Denies: Heat/ Cold Intolerance, Polydipsia, Polyuria Hematologic/ Lymphatic: Denies: Easy Bruising, Easy Bleeding - Physical Exam Vital Signs Temp Pulse Resp BP 97.7 F L 98 18 155/91 H 11/27/18 08:54 11/27/18 08:54 11/27/18 08:54 11/27/18 08:54 General: Alert, Oriented x3, Cooperative, No apparent distress, Well developed, Well nourished HEENT: Atraumatic, PERRLA, EOMI, Normocephalic Oral: Moist Mucosa Neck: No JVD Lungs: Normal air movement Abdomen: Non-Distended Extremities: No clubbing, No cyanosis, No edema, No Calf Tenderness, - - A well- healed right above-knee amputation stump is noted. The ulceration in the right groin is little changed in appearance or size. There is no sign of infection or cellulitis. There is no drainage. Dimensions are documented elsewhere. There is a moderate amount of bioburden. Skin: No rashes Wound Measurements and Assessment WC - Nurse 1 - General Ulcer Measurement Start: 11/27/18 08:54 Freq: Status: Active Protocol: Activity Type Activity Date Activity User E-Sign Co-Sign Detail Recorded Client Recorded Date Recorded By Document 11/27/18 08:54 KRYSTINA [id number] 11/27/18 09:04 DL 11/27/18 08:54 Wound Center Nurse 1 [Ulcer Assessment] #5 R Groin -Current Size (cm) - Length 2.6 -Current Size (cm) - Width 0.6 -Current Size (cm) - Depth 1 -Total Square Cm 1.56 -Photo Taken No -Exudate Amt Small -Exudate Type Serosanguineous -Wound Margin Distinct, Outline Attached -Granulation Amt Large (67-100%) -Granulation Quality [place] -Necrosis Amt Small (1-33%) -Necrotic Tissue Type Adherent Slough -Structure Exposed N/A -Texture (Blanche-wound Skin Appearance) Scarring -Moisture (Blanche-wound Skin Appearance Dry/Scaly ) -Color (Blanche-wound Skin Appearance) No Abnormality -Temperature (Blanche-wound Skin No Abnormality Appearance) (Pt Warm) -Tenderness on Palpation (Blanche-wound No Skin Appearance) -Ulcer Cleansing Rinsed/ Irrigated with Saline -Foul Odor after Cleansing No -Anesthetic Used 4% Lidocaine Solution - Nurse 2 - General Ulcer CM Notes Start: 11/27/18 08:54 Freq: Status: Active Protocol: Activity Type Activity Date Activity User E-Sign Co-Sign Detail Recorded Client Recorded Date Recorded By Document 11/27/18 09:20 DV [id number] 11/27/18 09:25 DV 11/27/18 09:20 Wound Center Nurse 2 [Procedure/Treatment] -Time 09:21 -Correct Patient Yes -Correct Side, Site, Position Yes -Correct Procedure Yes -Procedure Performed Yes -Type of Procedure Debridement -Clinical Debridement Subcutaneous -Post Debridement Size (cm) - Length 3.0 -Post Debridement Size (cm) - Width 1.2 -Post Debridement Size (cm) - Depth 1.0 -Total Square Cm 3.60 -Wound/Ulcer Outcome Not Healed -Ulcer Cleansing Rinsed/ Irrigated with Saline -Foul Odor after Cleansing No -Bioengineered Tissue No -Bleeding Controlled with Pressure -Offloading No -Treatment Response Procedure Tolerated Well [See Physician Procedure note for Specifics] Pain Scale: 0-10 Numeric [Pain] -Is Patient Pain Free? Yes Musculoskeletal: No Muscle Wasting Neurological: Cranial nerves II-XII grossly intact, Neuro grossly intact Psych/Mental Status: Normal Affect, Appropriate, Alert and oriented to time, place, person, mood and affect Debridement Note Post-Debridement Measurements/Treatment - Nurse 2 - General Ulcer CM Notes Start: 11/27/18 08:54 Freq: Status: Active Protocol: Activity Type Activity Date Activity User E-Sign Co-Sign Detail Recorded Client Recorded Date Recorded By Document 11/27/18 09:20 DV [id number] 11/27/18 09:25 DV 11/27/18 09:20 Wound Center Nurse 2 #5 R Groin -Time 09:21 -Correct Patient Yes -Correct Side, Site, Position Yes -Correct Procedure Yes -Procedure Performed Yes -Type of Procedure Debridement -Clinical Debridement Subcutaneous -Post Debridement Size (cm) - Length 3.0 -Post Debridement Size (cm) - Width 1.2 -Post Debridement Size (cm) - Depth 1.0 -Total Square Cm 3.60 -Wound/Ulcer Outcome Not Healed -Ulcer Cleansing Rinsed/ Irrigated with Saline -Foul Odor after Cleansing No -Bioengineered Tissue No -Bleeding Controlled with Pressure -Offloading No -Treatment Response Procedure Tolerated Well Pain Scale: 0-10 Numeric Is Patient Pain Free? 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 In the 1970's, she was diagnosed with malignant melanoma of the right calf, with metastasis to lymph nodes in the right groin. She underwent excision of the melanoma with right groin lymphadenectomy. She was subsequently treated with a long series of radiation treatments to the right groin. During the days of her radiation treatment, it is suspected that the radiation techniques were somewhat early in their evolution, and quite likely that the patient received massive doses of radiation exposure, exceeding doses which would be considered appropriate today, with techniques which are primitive by today's standards. As a result, the patient has developed soft tissue radiation injury, and has previously been treated at our wound center in the past with a series of approximately 90 hyperbaric oxygen therapy treatments, in 2012. She presented with recurrence of soft tissue radionecrosis in the right groin. Hyperbaric oxygen therapy treatments were initiated, and the patient has undergone a series of 90 additional hyperbaric oxygen treatment sessions. She has shown mild benefit from the hyperbaric oxygen treatments. At this time, there is no clinical evidence of infection or cellulitis in the blanche-ulcer area. However, the patient is responding very slowly to the variety of conventional treatment measures which have been implemented. In review of the patient's past history, each treatment course has been rather protracted in terms of healing. The patient was previously referred for consultation at [facility] (Dr. Harding), which had been arranged by our facility. Medical records related to the patient's visit at [facility] resulted in no significant new recommendations for treatment or management. The patient remains on a well- balanced diet. Given that little progress has been made in recent months, I have contacted and spoken by phone with the Commodities Clerk of the [facility], Dr. Bassam Alas. Dr. Alas has been very helpful. He has conferred with his colleague, Plastic Surgeon Dr. Cassius Whitman. Dr. Whitman has indicated his willingness to evaluate the patient, and the patient has now been evaluated by Dr. Frausto, having had an appointment last week. The patient was very impressed with her interaction with the plastic surgeon. A number of options were discussed. Dr. Frausto has proposed a rectus abdominis myocutaneous flap. As a prelude to flap reconstruction, the patient is scheduled to undergo a CT angiogram at [facility] on December 13, 2018. Plan: The patient has been the recipient of 10 EpiFix applications. A request for preauthorization of PuraPly was denied. A series of 90 hyperbaric oxygen therapy sessions have also been completed. Attempts at preauthorization of ne gative pressure wound therapy have also been denied. We have used a series of [place] allografts most recently. For now, we are to continue the use of Mary topically. The patient is to continue with a nutritious diet. Biopsies of the ulceration have been obtained, and the results were negative for malignancy. The patient is now to be co-managed by Plastic Surgeon, Dr. Cassius Whitman, at [facility]. It is anticipated that the patient will likely undergo a rectus abdominis myocutaneous flap reconstruction in the near future. The patient is to return in 2 weeks for reassessment. Influenza vaccine was not administered today. The patient is not a smoker. She stands 5 feet 7 inches tall. She weighs 198 pounds. Her BMI is 31, which places her in a class I weight category. Weight loss has been recommended. She is to collaborate with her primary care physician in this regard.
== END 2018-12-07 23:59 ==
LOC: WC 08:54
PROVIDERS: Family Provider Family Medicine; PCP Family Medicine; Referring Provider Surgery; Visit Provider Surgery
DX: L59.8 Other specified disorders of the skin and subcutaneous tissue related to radiation (principal); Y84.2 Radiological procedure and radiotherapy as the cause of abnormal reaction of the patient, or of later complication, without mention of misadventure at the time of the procedure; Z85.42 Personal history of malignant neoplasm of other parts of uterus; Z89.619 Acquired absence of unspecified leg above knee; E78.5 Hyperlipidemia, unspecified; Z85.820 Personal history of malignant melanoma of skin; K21.9 Gastro-esophageal reflux disease without esophagitis; E66.9 Obesity, unspecified; Z71.3 Dietary counseling and surveillance; Z68.44 Body mass index [BMI] 60.0-69.9, adult; Z87.891 Personal history of nicotine dependence; L98.492 Non-pressure chronic ulcer of skin of other sites with fat layer exposed
CPT/HCPCS: 11042

== ENCOUNTER 2018-12-25 08:30 | Outpatient (RCR) | payer OTHER, SELFPAY ==
[2018-12-08 00:42] VITALS: BP 155/91; PULSE 98; RESP 18; TEMP 36.5
[2018-12-11 08:30] VITALS: BP 157/93; PULSE 90; RESP 16; TEMP 35.9; BMI 68.3
--- NOTE | 2018-12-11 08:53 | PCM.WC.HP ---
(1) History of uterine cancer Status: Chronic Current Visit: No Code(s): Z85.42 - Personal history of malignant neoplasm of other parts of uterus (2) History of melanoma Status: Chronic Current Visit: Yes Code(s): Z85.820 - Personal history of malignant melanoma of skin (3) Hyperlipidemia Status: Chronic Current Visit: No Code(s): E78.5 - Hyperlipidemia, unspecified (4) GERD (gastroesophageal reflux disease) Status: Chronic Current Visit: No Code(s): K21.9 - Gastro-esophageal reflux disease without esophagitis (5) Ulcer of right groin Status: Chronic Current Visit: Yes Qualifiers: Non-pressure ulcer stage: with fat layer exposed Code(s): L98.499 - Non-pressure chronic ulcer of skin of other sites with unspecified severity (6) Obesity (BMI 30.0-34.9) Status: Chronic Current Visit: No Code(s): E66.9 - Obesity, unspecified (7) Amputee, above knee Status: Chronic Current Visit: Yes Qualifiers: Laterality: right Code(s): Z89.619 - Acquired absence of unspecified leg above knee (8) Soft tissue radionecrosis Status: Chronic Current Visit: Yes Code(s): L59.8 - Other specified disorders of the skin and subcutaneous tissue related to radiation; Y84.2 - Radiological procedure and radiotherapy as the cause of abnormal reaction of the patient, or of later complication, without mention of misadventure at the time of the procedure (9) soft tissue radiation injury Status: Chronic Current Visit: Yes History of Present Illness Chief Complaint: 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 The patient underwent excision of her melanoma with lymphadenectomy in the right groin. She also underwent lengthy radiation treatments at the [facility] in [place], [place]. Melanoma recurred, and the patient was subsequently treated with monoclonal antibodies in 1984. 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 In 2012, the patient was treated in our wound center for ulcerations of the right upper thigh and groin related to soft tissue radiation necrosis. Treatment included local ulcer care and hyperbaric oxygen therapy. She underwent a total of nearly 90 treatments of hyperbaric oxygen therapy. It is known that she tolerated the therapies well, and derived significant benefit. She relates no history of claustrophobia, or other complications related to the hyperbaric oxygen therapy treatments. She has no history of barotrauma to lungs, ears, etc. Her medical history reveals no evidence of contraindications to hyperbaric oxygen therapy. The patient's current course of management includes a total of 90 sessions of hyperbaric oxygen therapy, which have been completed without total healing of the patient's right groin ulceration. EpiFix allografts have also been used for a series of 10 applications, without total healing. It appears as though the patient's current clinical course is mimicking that of the past, with wound healing which is very recalcitrant to conventional, conservative treatment measures. 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 She has undergone excision of melanoma from the right calf, with lymphadenectomy of the right groin in the 1969's. She subsequently required surgeries of the right thigh related to osteomyelitis, MRSA infection, and radiation injury to the right femoral artery. Ultimately, the patient required right above-knee amputation, performed in 2000. She also has a remote history of open reduction and internal fixation of a right ankle fracture. Allergies/Adverse Reactions: Allergies No Known Allergies Allergy (Verified 06/20/17 09:22) Home Medications: Ambulatory Orders Medication Instructions Recorded Famotidine 20 mg PO 06/20/17 Pravastatin [Pravachol] 20 mg PO DAILY 06/20/17 - Family History Maternal - - The patient's mother is 98 years of age and relatively healthy. The patient's father at age of 79 with a history of cardiomyopathy. Smoking Status: Former smoker Tobacco Use: Non-smoker Review of Systems Constitutional: Denies: Chills, Fever, Weight Change Eyes: Denies: Pain, Vision Change HEENT: Denies: Difficulty Hearing, Difficulty Swallowing, Sinus Congestion Cardiovascular: Denies: Chest Pain, Palpitations Respiratory: Denies: Cough, Shortness of Breath Gastrointestinal: Denies: Diarrhea, Nausea, Vomiting Genitourinary: Denies: Dysuria, Hematuria Endocrine: Denies: Heat/ Cold Intolerance, Polydipsia, Polyuria Hematologic/ Lymphatic: Denies: Easy Bruising, Easy Bleeding - Physical Exam Vital Signs Temp Pulse Resp BP 96.6 F L 90 16 157/93 H 12/11/18 08:30 12/11/18 08:30 12/11/18 08:30 12/11/18 08:30 General: Alert, Oriented x3, Cooperative, No apparent distress, Well developed, Well nourished HEENT: Atraumatic, PERRLA, EOMI, Normocephalic Oral: Moist Mucosa Neck: No JVD Lungs: Normal air movement Abdomen: Non-Distended Extremities: No clubbing, No cyanosis, No edema, No Calf Tenderness, - - A well-healed right above-knee amputation stump is noted. The ulceration in the right groin persists. It is little changed in size or appearance. There is evidence of epithelialization both superiorly and inferiorly. Centrally, however, an open ulceration persists. There is a moderate amount of bioburden. Dimensions are documented elsewhere. There is no sign of infection or cellulitis. Skin: No rashes Wound Measurements and Assessment WC - Nurse 1 - General Ulcer Measurement Start: 12/11/18 08:30 Freq: Status: Active Protocol: Activity Type Activity Date Activity User E-Sign Co-Sign Detail Recorded Client Recorded Date Recorded By Document 12/11/18 08:30 DL [id number] 12/11/18 08:37 DL 12/11/18 08:30 Wound Center Nurse 1 [Ulcer Assessment] #5 R Groin -Current Size (cm) - Length 0.3 -Current Size (cm) - Width 0.6 -Current Size (cm) - Depth 1 -Total Square Cm 0.18 -Photo Taken No -Exudate Amt Small -Exudate Type Serosanguineous -Wound Margin Thickened -Granulation Amt Large (67-100%) -Granulation Quality [place] -Necrosis Amt Small (1-33%) -Necrotic Tissue Type Adherent Slough -Structure Exposed N/A -Texture (Blanche-wound Skin Appearance) Scarring -Moisture (Blanche-wound Skin Appearance Dry/Scaly ) -Color (Blanche-wound Skin Appearance) Rubor -Temperature (Blanche-wound Skin No Abnormality Appearance) (Pt Warm) -Tenderness on Palpation (Blanche-wound No Skin Appearance) -Ulcer Cleansing Rinsed/ Irrigated with Saline -Foul Odor after Cleansing No -Anesthetic Used 5% Lidocaine Gel WC - Nurse 2 - General Ulcer CM Notes Start: 12/11/18 08:30 Freq: Status: Active Protocol: Activity Type Activity Date Activity User E-Sign Co-Sign Detail Recorded Client Recorded Date Recorded By Document 12/11/18 08:45 DV [id number] 12/11/18 08:48 DV 12/11/18 08:45 Wound Center Nurse 2 [Procedure/Treatment] -Time 08:45 -Correct Patient Yes -Correct Side, Site, Position Yes -Correct Procedure Yes -Procedure Performed Yes -Type of Procedure Debridement -Clinical Debridement Subcutaneous -Post Debridement Size (cm) - Length 3.0 -Post Debridement Size (cm) - Width 1.2 -Post Debridement Size (cm) - Depth 1.0 -Total Square Cm 3.60 -Wound/Ulcer Outcome Not Healed -Ulcer Cleansing Rinsed/ Irrigated with Saline -Foul Odor after Cleansing No -Bioengineered Tissue No -Bleeding Controlled with Pressure -Offloading No -Treatment Response Procedure Tolerated Well [See Physician Procedure note for Specifics] Pain Scale: 0-10 Numeric [Pain] -Is Patient Pain Free? Yes Musculoskeletal: No Muscle Wasting Neurological: Cranial nerves II-XII grossly intact, Neuro grossly intact Psych/Mental Status: Normal Affect, Appropriate, Alert and oriented to time, place, person, mood and affect Debridement Note Post-Debridement Measurements/Treatment - Nurse 2 - General Ulcer CM Notes Start: 12/11/18 08:30 Freq: Status: Active Protocol: Activity Type Activity Date Activity User E-Sign Co-Sign Detail Recorded Client Recorded Date Recorded By Document 12/11/18 08:45 DV [id number] 12/11/18 08:48 DV 12/11/18 08:45 Wound Center Nurse 2 #5 R Groin -Time 08:45 -Correct Patient Yes -Correct Side, Site, Position Yes -Correct Procedure Yes -Procedure Performed Yes -Type of Procedure Debridement -Clinical Debridement Subcutaneous -Post Debridement Size (cm) - Length 3.0 -Post Debridement Size (cm) - Width 1.2 -Post Debridement Size (cm) - Depth 1.0 -Total Square Cm 3.60 -Wound/Ulcer Outcome Not Healed -Ulcer Cleansing Rinsed/ Irrigated with Saline -Foul Odor after Cleansing No -Bioengineered Tissue No -Bleeding Controlled with Pressure -Offloading No -Treatment Response Procedure Tolerated Well Pain Scale: 0-10 Numeric Is Patient Pain Free? 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 In the 1970's, she was diagnosed with malignant melanoma of the right calf, with metastasis to lymph nodes in the right groin. She underwent excision of the melanoma with right groin lymphadenectomy. She was subsequently treated with a long series of radiation treatments to the right groin. During the days of her radiation treatment, it is suspected that the radiation techniques were somewhat early in their evolution, and quite likely that the patient received massive doses of radiation exposure, exceeding doses which would be considered appropriate today, with techniques which are primitive by today's standards. As a result, the patient has developed soft tissue radiation injury, and has previously been treated at our wound center in the past with a series of approximately 90 hyperbaric oxygen therapy treatments, in 2011. She presented with recurrence of soft tissue radionecrosis in the right groin. Hyperbaric oxygen therapy treatments were initiated, and the patient has undergone a series of 90 additional hyperbaric oxygen treatment sessions. She has shown mild benefit from the hyperbaric oxygen treatments. At this time, there is no clinical evidence of infection or cellulitis in the blanche-ulcer area. However, the patient is responding very slowly to the variety of conventional treatment measures which have been implemented. In review of the patient's past history, each treatment course has been rather protracted in terms of healing. The patient was previously referred for consultation at [facility] (Dr. Harding), which had been arranged by our facility. Medical records related to the patient's visit at [facility] resulted in no significant new recommendations for treatment or management. The patient remains on a well-balanced diet. Given that little progress has been made in recent months, I have contacted and spoken by phone with the Fact Checker of the [facility], Dr. Bassam Alas. Dr. Alas has been very helpful. He has conferred with his colleague, Plastic Surgeon Dr. Cassius Whitman. Dr. Whitman has indicated his willingness to evaluate the patient, and the patient has now been evaluated by Dr. Frausto recently. The patient was very impressed with her interaction with the plastic surgeon. A number of options were discussed. Dr. Frausto has proposed a rectus abdominis myocutaneous flap. As a prelude to flap reconstruction, the patient is scheduled to undergo a CT angiogram at [facility] on December 13, 2018. She is then to meet with Dr. Frausto later that same day. It is anticipated that her surgical procedure will be scheduled for the near future. Until that occurs, the patient will follow-up in the Wound Center, and will return in 2 weeks for reassessment. Plan: The patient has been the recipient of 10 EpiFix applications. A request for preauthorization of PuraPly was denied. A series of 90 hyperbaric oxygen therapy sessions have also been completed. Attempts at preauthorization of negative pressure wound therapy have also been denied. We have used a series of [place] allografts most recently. For now, we are to continue the use of Mary topically. The patient is to continue with a nutritious diet. Biopsies of the ulceration have been obtained, and the results were negative for malignancy. The patient is now to be co-managed by Plastic Surgeon, Dr. Cassius Whitman, at [facility]. It is anticipated that the patient will likely undergo a rectus abdominis myocutaneous flap reconstruction in the near future. The patient is to return in 2 weeks for reassessment. Influenza vaccine was not administered today. The patient is not a smoker. She stands 5 feet 7 inches tall. She weighs 198 pounds. Her BMI is 31, which places her in a class I weight category. Weight loss has been recommended. She is to collaborate with her primary care physician in this regard.
--- NOTE | 2018-12-11 08:57 | HP.PCM_ITS ---
(1) History of uterine cancer Status: Chronic Current Visit: No Code(s): Z85.42 - Personal history of malignant neoplasm of other parts of uterus (2) History of melanoma Status: Chronic Current Visit: Yes Code(s): Z85.820 - Personal history of malignant melanoma of skin (3) Hyperlipidemia Status: Chronic Current Visit: No Code(s): E78.5 - Hyperlipidemia, unspecified (4) GERD (gastroesophageal reflux disease) Status: Chronic Current Visit: No Code(s): K21.9 - Gastro-esophageal reflux disease without esophagitis (5) Ulcer of right groin Status: Chronic Current Visit: Yes Qualifiers: Non-pressure ulcer stage: with fat layer exposed Code(s): L98.499 - Non-pressure chronic ulcer of skin of other sites with unspecified severity (6) Obesity (BMI 30.0-34.9) Status: Chronic Current Visit: No Code(s): E66.9 - Obesity, unspecified (7) Amputee, above knee Status: Chronic Current Visit: Yes Qualifiers: Laterality: right Code(s): Z89.619 - Acquired absence of unspecified leg above knee (8) Soft tissue radionecrosis Status: Chronic Current Visit: Yes Code(s): L59.8 - Other specified disorders of the skin and subcutaneous tissue related to radiation; Y84.2 - Radiological procedure and radiotherapy as the cause of abnormal reaction of the patient, or of later complication, without mention of misadventure at the time of the procedure (9) soft tissue radiation injury Status: Chronic Current Visit: Yes History of Present Illness Chief Complaint: 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 The patient underwent excision of her melanoma with lymphadenect sharmaine in the right groin. She also underwent lengthy radiation treatments at the [facility] in [place], [place]. Melanoma recurred, and the patient was subsequently treated with monoclonal antibodies in 1984. 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 Treatment included local ulcer care and hyperbaric oxygen therapy. She underwent a total of nearly 90 treatments of hyperbaric oxygen therapy. It is known that she tolerated the therapies well, and derived significant benefit. She relates no history of claustrophobia, or other complications related to the hyperbaric oxygen therapy treatments. She has no history of barotrauma to lungs, ears, etc. Her medical history reveals no evidence of contraindications to hyperbaric oxygen therapy. The patient's current course of management includes a total of 90 sessions of hyperbaric oxygen therapy, which have been completed without total healing of the patient's right groin ulceration. EpiFix allografts have also been used for a series of 10 applications, without total healing. It appears as though the patient's current clinical course is mimicking that of the past, with wound healing which is very recalcitrant to conventional, conservative treatment measures. 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 She has undergone excision of melanoma from the right calf, with lymphadenectomy of the right groin in the 1969's. She subsequently required surgeries of the right thigh related to osteomyelitis, MRSA infection, and radiation injury to the right femoral artery. Ultimately, the patient required right above-knee amputation, performed in 2000. She also has a remote history of open reduction and internal fixation of a right ankle fracture. Allergies/Adverse Reactions: Allergies No Known Allergies Allergy (Verified 06/20/17 09:22) Home Medications: Ambulatory Orders Medication Instructions Recorded Famotidine 20 mg PO 06/20/17 Pravastatin [Pravachol] 20 mg PO DAILY 06/20/17 - Family History Maternal - - The patient's mother is 98 years of age and relatively healthy. The patient's father at age of 79 with a history of cardiomyopathy. Smoking Status: Former smoker Tobacco Use: Non-smoker Review of Systems Constitutional: Denies: Chills, Fever, Weight Change Eyes: Denies: Pain, Vision Change HEENT: Denies: Difficulty Hearing, Difficulty Swallowing, Sinus Congestion Cardiovascular: Denies: Chest Pain, Palpitations Respiratory: Denies: Cough, Shortness of Breath Gastrointestinal: Denies: Diarrhea, Nausea, Vomiting Genitourinary: Denies: Dysuria, Hematuria Endocrine: Denies: Heat/ Cold Intolerance, Polydipsia, Polyuria Hematologic/ Lymphatic: Denies: Easy Bruising, Easy Bleeding - Physical Exam Vital Signs Temp Pulse Resp BP 96.6 F L 90 16 157/93 H 12/11/18 08:30 12/11/18 08:30 12/11/18 08:30 12/11/18 08:30 General: Alert, Oriented x3, Cooperative, No apparent distress, Well developed, Well nourished HEENT: Atraumatic, PERRLA, EOMI, Normocephalic Oral: Moist Mucosa Neck: No JVD Lungs: Normal air movement Abdomen: Non-Distended Extremities: No clubbing, No cyanosis, No edema, No Calf Tenderness, - - A well- healed right above-knee amputation stump is noted. The ulceration in the right groin persists. It is little changed in size or appearance. There is evidence of epithelialization both superiorly and inferiorly. Centrally, however, an op en ulceration persists. There is a moderate amount of bioburden. Dimensions are documented elsewhere. There is no sign of infection or cellulitis. Skin: No rashes Wound Measurements and Assessment WC - Nurse 1 - General Ulcer Measurement Start: 12/11/18 08:30 Freq: Status: Active Protocol: Activity Type Activity Date Activity User E-Sign Co-Sign Detail Recorded Client Recorded Date Recorded By Document 12/11/18 08:30 DL [id number] 12/11/18 08:37 DL 12/11/18 08:30 Wound Center Nurse 1 [Ulcer Assessment] #5 R Groin -Current Size (cm) - Length 0.3 -Current Size (cm) - Width 0.6 -Current Size (cm) - Depth 1 -Total Square Cm 0.18 -Photo Taken No -Exudate Amt Small -Exudate Type Serosanguineous -Wound Margin Thickened -Granulation Amt Large (67-100%) -Granulation Quality [place] -Necrosis Amt Small (1-33%) -Necrotic Tissue Type Adherent Slough -Structure Exposed N/A -Texture (Blanche-wound Skin Appearance) Scarring -Moisture (Blanche-wound Skin Appearance Dry/Scaly ) -Color (Blanche-wound Skin Appearance) Rubor -Temperature (Blanche-wound Skin No Abnormality Appearance) (Pt Warm) -Tenderness on Palpation (Blanche-wound No Skin Appearance) -Ulcer Cleansing Rinsed/ Irrigated with Saline -Foul Odor after Cleansing No -Anesthetic Used 5% Lidocaine Gel - Nurse 2 - General Ulcer CM Notes Start: 12/11/18 08:30 Freq: Status: Active Protocol: Activity Type Activity Date Activity User E-Sign Co-Sign Detail Recorded Client Recorded Date Recorded By Document 12/11/18 08:45 DV [id number] 12/11/18 08:48 DV 12/11/18 08:45 Wound Center Nurse 2 [Procedure/Treatment] -Time 08:45 -Correct Patient Yes -Correct Side, Site, Position Yes -Correct Procedure Yes -Procedure Performed Yes -Type of Procedure Debridement -Clinical Debridement Subcutaneous -Post Debridement Size (cm) - Length 3.0 -Post Debridement Size (cm) - Width 1.2 -Post Debridement Size (cm) - Depth 1.0 -Total Square Cm 3.60 -Wound/Ulcer Outcome Not Healed -Ulcer Cleansing Rinsed/ Irrigated with Saline -Foul Odor after Cleansing No -Bioengineered Tissue No -Bleeding Controlled with Pressure -Offloading No -Treatment Response Procedure Tolerated Well [See Physician Procedure note for Specifics] Pain Scale: 0-10 Numeric [Pain] -Is Patient Pain Free? Yes Musculoskeletal: No Muscle Wasting Neurological: Cranial nerves II-XII grossly intact, Neuro grossly intact Psych/Mental Status: Normal Affect, Appropriate, Alert and oriented to time, place, person, mood and affect Debridement Note Post-Debridement Measurements/Treatment - Nurse 2 - General Ulcer CM Notes Start: 12/11/18 08:30 Freq: Status: Active Protocol: Activity Type Activity Date Activity User E-Sign Co-Sign Detail Recorded Client Recorded Date Recorded By Document 12/11/18 08:45 DV [id number] 12/11/18 08:48 DV 12/11/18 08:45 Wound Center Nurse 2 #5 R Groin -Time 08:45 -Correct Patient Yes -Correct Side, Site, Position Yes -Correct Procedure Yes -Procedure Performed Yes -Type of Procedure Debridement -Clinical Debridement Subcutaneous -Post Debridement Size (cm) - Length 3.0 -Post Debridement Size (cm) - Width 1.2 -Post Debridement Size (cm) - Depth 1.0 -Total Square Cm 3.60 -Wound/Ulcer Outcome Not Healed -Ulcer Cleansing Rinsed/ Irrigated with Saline -Foul Odor after Cleansing No -Bioengineered Tissue No -Bleeding Controlled with Pressure -Offloading No -Treatment Response Procedure Tolerated Well Pain Scale: 0-10 Numeric Is Patient Pain Free? 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 In the 1970's, she was diagnosed with malignant melanoma of the right calf, with metastasis to lymph nodes in the right groin. She underwent excision of the melanoma with right groin lymphadenectomy. She was subsequently treated with a long series of radiation treatments to the right groin. During the days of her radiation treatment, it is suspected that the radiation techniques were somewhat early in their evolu tion, and quite likely that the patient received massive doses of radiation exposure, exceeding doses which would be considered appropriate today, with techniques which are primitive by today's standards. As a result, the patient has developed soft tissue radiation injury, and has previously been treated at our wound center in the past with a series of approximately 90 hyperbaric oxygen therapy treatments, in 2011. She presented with recurrence of soft tissue radionecrosis in the right groin. Hyperbaric oxygen therapy treatments were initiated, and the patient has undergone a series of 90 additional hyperbaric oxygen treatment sessions. She has shown mild benefit from the hyperbaric oxygen treatments. At this time, there is no clinical evidence of infection or cellulitis in the blanche-ulcer area. However, the patient is responding very slowly to the variety of conventional treatment measures which have been implemented. In review of the patient's past history, each treatment course has been rather protracted in terms of healing. The patient was previously referred for consultation at [facility] (Dr. Harding), which had been arranged by our facility. Medical records related to the patient's visit at [facility] resulted in no significant new recommendations for treatment or management. The patient remains on a well- balanced diet. Given that little progress has been made in recent months, I have contacted and spoken by phone with the [employer] of [facility], Dr. Bassam Alas. Dr. Alas has been very helpful. He has conferred with his colleague, Plastic Surgeon Dr. Cassius Whitman. Dr. Whitman has indicated his willingness to evaluate the patient, and the patient has now been evaluated by Dr. Frausto recently. The patient was very impressed with her interaction with the plastic surgeon. A number of options were discussed. Dr. Frausto has proposed a rectus abdominis myocutaneous flap. As a prelude to flap reconstruction, the patient is scheduled to undergo a CT angiogram at [facility] on December 13, 2018. She is then to meet with Dr. Frausto later that same day. It is anticipated that her surgical procedure will be scheduled for the near future. Until that occurs, the patient will follow-up in the Wound Center, and will retu rn in 2 weeks for reassessment. Plan: The patient has been the recipient of 10 EpiFix applications. A request for preauthorization of PuraPly was denied. A series of 90 hyperbaric oxygen therapy sessions have also been completed. Attempts at preauthorization of negative pressure wound therapy have also been denied. We have used a series of [place] allografts most recently. For now, we are to continue the use of Mary topically. The patient is to continue with a nutritious diet. Biopsies of the ulceration have been obtained, and the results were negative for malignancy. The patient is now to be co-managed by Plastic Surgeon, Dr. Cassius Whitman, at [facility]. It is anticipated that the patient will likely undergo a rectus abdominis myocutaneous flap reconstruction in the near future. The patient is to return in 2 weeks for reassessment. Influenza vaccine was not administered today. The patient is not a smoker. She stands 5 feet 7 i nches tall. She weighs 198 pounds. Her BMI is 31, which places her in a class I weight category. Weight loss has been recommended. She is to collaborate with her primary care physician in this regard.
[2018-12-25 08:53] VITALS: BP 149/93; PULSE 89; RESP 18; TEMP 36.1; BMI 68.3
--- NOTE | 2018-12-25 09:46 | PCM.WC.HP ---
(1) History of uterine cancer Status: Chronic Current Visit: No Code(s): Z85.42 - Personal history of malignant neoplasm of other parts of uterus (2) History of melanoma Status: Chronic Current Visit: Yes Code(s): Z85.820 - Personal history of malignant melanoma of skin (3) Hyperlipidemia Status: Chronic Current Visit: No Code(s): E78.5 - Hyperlipidemia, unspecified (4) GERD (gastroesophageal reflux disease) Status: Chronic Current Visit: No Code(s): K21.9 - Gastro-esophageal reflux disease without esophagitis (5) Ulcer of right groin Status: Chronic Current Visit: Yes Qualifiers: Non-pressure ulcer stage: with fat layer exposed Code(s): L98.499 - Non-pressure chronic ulcer of skin of other sites with unspecified severity (6) Obesity (BMI 30.0-34.9) Status: Chronic Current Visit: No Code(s): E66.9 - Obesity, unspecified (7) Amputee, above knee Status: Chronic Current Visit: Yes Qualifiers: Laterality: right Code(s): Z89.619 - Acquired absence of unspecified leg above knee (8) Soft tissue radionecrosis Status: Chronic Current Visit: Yes Code(s): L59.8 - Other specified disorders of the skin and subcutaneous tissue related to radiation; Y84.2 - Radiological procedure and radiotherapy as the cause of abnormal reaction of the patient, or of later complication, without mention of misadventure at the time of the procedure (9) soft tissue radiation injury Status: Chronic Current Visit: Yes History of Present Illness Date of Service: 12/25/18 Chief Complaint: 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 The patient underwent excision of her melanoma with lymphadenectomy in the right groin. She also underwent lengthy radiation treatments at the [facility] in [place], [place]. Melanoma recurred, and the patient was subsequently treated with monoclonal antibodies in 1984. 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 Treatment included local ulcer care and hyperbaric oxygen therapy. She underwent a total of nearly 90 treatments of hyperbaric oxygen therapy. It is known that she tolerated the therapies well, and derived significant benefit. She relates no history of claustrophobia, or other complications related to the hyperbaric oxygen therapy treatments. She has no history of barotrauma to lungs, ears, etc. Her medical history reveals no evidence of contraindications to hyperbaric oxygen therapy. The patient's current course of management includes a total of 90 sessions of hyperbaric oxygen therapy, which have been completed without total healing of the patient's right groin ulceration. EpiFix allografts have also been used for a series of 10 applications, without total healing. It appears as though the patient's current clinical course is mimicking that of the past, with wound healing which is very recalcitrant to conventional, conservative treatment measures. 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 She has undergone excision of melanoma from the right calf, with lymphadenectomy of the right groin in the 1969's. She subsequently required surgeries of the right thigh related to osteomyelitis, MRSA infection, and radiation injury to the right femoral artery. Ultimately, the patient required right above-knee amputation, performed in 2000. She also has a remote history of open reduction and internal fixation of a right ankle fracture. Allergies/Adverse Reactions: Allergies No Known Allergies Allergy (Verified 06/20/17 09:22) Home Medications: Ambulatory Orders Medication Instructions Recorded Famotidine 20 mg PO 06/20/17 Pravastatin [Pravachol] 20 mg PO DAILY 06/20/17 - Family History Maternal - - The patient's mother is 98 years of age and relatively healthy. The patient's father at age of 79 with a history of cardiomyopathy. Smoking Status: Former smoker Tobacco Use: Non-smoker Review of Systems Constitutional: Denies: Chills, Fever, Weight Change Eyes: Denies: Pain, Vision Change HEENT: Denies: Difficulty Hearing, Difficulty Swallowing, Sinus Congestion Cardiovascular: Denies: Chest Pain, Palpitations Respiratory: Denies: Cough, Shortness of Breath Gastrointestinal: Denies: Diarrhea, Nausea, Vomiting Genitourinary: Denies: Dysuria, Hematuria Endocrine: Denies: Heat/ Cold Intolerance, Polydipsia, Polyuria Hematologic/ Lymphatic: Denies: Easy Bruising, Easy Bleeding - Physical Exam Vital Signs Temp Pulse Resp BP 97 F L 89 18 149/93 H 12/25/18 08:53 12/25/18 08:53 12/25/18 08:53 12/25/18 08:53 General: Alert, Oriented x3, Cooperative, No apparent distress, Well developed, Well nourished HEENT: Atraumatic, PERRLA, EOMI, Normocephalic Oral: Moist Mucosa Neck: No JVD Lungs: Normal air movement Abdomen: Non-Distended Extremities: No clubbing, No cyanosis, No edema, No Calf Tenderness, - - The ulceration in the right groin persists. It is little changed in size or appearance. Dimensions are documented elsewhere. There is no sign of infection or cellulitis. There is a small amount of bioburden. There is evidence of epithelialization superiorly and inferiorly, but the wound remains open centrally. The patient's right above-knee amputation stump remains well-healed. Skin: No rashes Wound Measurements and Assessment WC - Nurse 1 - General Ulcer Measurement Start: 12/11/18 08:30 Freq: Status: Active Protocol: Activity Type Activity Date Activity User E-Sign Co-Sign Detail Recorded Client Recorded Date Recorded By Document 12/25/18 08:53 RB [id number] 12/25/18 08:55 RB 12/25/18 08:53 Wound Center Nurse 1 [Ulcer Assessment] #5 R Groin -Current Size (cm) - Length 3.1 -Current Size (cm) - Width 0.5 -Current Size (cm) - Depth 1.1 -Total Square Cm 1.55 -Tunneling No -Undermining/Tunneling No -Circular Undermining No -Exudate Amt Small -Exudate Type Serosanguineous -Wound Margin Distinct, Outline Attached -Granulation Amt Large (67-100%) -Granulation Quality [place] -Slough/Fibrin Yes -Necrosis Amt Small (1-33%) -Necrotic Tissue Type Adherent Slough -Structure Exposed N/A -Texture (Blanche-wound Skin Appearance) Assessed -Moisture (Blanche-wound Skin Appearance Assessed ) -Color (Blanche-wound Skin Appearance) Assessed -Temperature (Blanche-wound Skin No Abnormality Appearance) (Pt Warm) -Tenderness on Palpation (Blanche-wound No Skin Appearance) -Ulcer Cleansing Rinsed/ Irrigated with Saline -Foul Odor after Cleansing No -Anesthetic Used 5% Lidocaine Gel WC - Nurse 2 - General Ulcer CM Notes Start: 12/11/18 08:30 Freq: Status: Active Protocol: Activity Type Activity Date Activity User E-Sign Co-Sign Detail Recorded Client Recorded Date Recorded By Document 12/25/18 09:18 DV [id number] 12/25/18 09:22 DV 12/25/18 09:18 Wound Center Nurse 2 [Procedure/Treatment] -Time 09:19 -Correct Patient Yes -Correct Side, Site, Position Yes -Correct Procedure Yes -Procedure Performed Yes -Type of Procedure Debridement -Clinical Debridement Subcutaneous -Post Debridement Size (cm) - Length 3.5 -Post Debridement Size (cm) - Width 1.0 -Post Debridement Size (cm) - Depth 0.4 -Total Square Cm 3.50 -Wound/Ulcer Outcome Not Healed -Ulcer Cleansing Rinsed/ Irrigated with Saline -Foul Odor after Cleansing No -Bioengineered Tissue No -Bleeding Controlled with Pressure -Offloading No -Treatment Response Procedure Tolerated Well [See Physician Procedure note for Specifics] Pain Scale: 0-10 Numeric [Pain] -Is Patient Pain Free? Yes Musculoskeletal: No Muscle Wasting Neurological: Cranial nerves II-XII grossly intact, Neuro grossly intact Psych/Mental Status: Normal Affect, Appropriate, Alert and oriented to time, place, person, mood and affect Debridement Note Post-Debridement Measurements/Treatment - Nurse 2 - General Ulcer CM Notes Start: 12/11/18 08:30 Freq: Status: Active Protocol: Activity Type Activity Date Activity User E-Sign Co-Sign Detail Recorded Client Recorded Date Recorded By Document 12/11/18 08:45 DV [id number] 12/11/18 08:48 DV Document 12/25/18 09:18 DV [id number] 12/25/18 09:22 DV 12/11/18 12/25/18 08:45 09:18 Wound Center Nurse 2 #5 R Groin -Time 08:45 09:19 -Correct Patient Yes Yes -Correct Side, Site, Position Yes Yes -Correct Procedure Yes Yes -Procedure Performed Yes Yes -Type of Procedure Debridement Debridement -Clinical Debridement Subcutaneous Subcutaneous -Post Debridement Size (cm) - Length 3.0 3.5 -Post Debridement Size (cm) - Width 1.2 1.0 -Post Debridement Size (cm) - Depth 1.0 0.4 -Total Square Cm 3.60 3.50 -Wound/Ulcer Outcome Not Healed Not Healed -Ulcer Cleansing Rinsed/ Rinsed/ Irrigated with Irrigated with Saline Saline -Foul Odor after Cleansing No No -Bioengineered Tissue No No -Bleeding Controlled with Pressure Pressure -Offloading No No -Treatment Response Procedure Procedure Tolerated Well Tolerated Well Pain Scale: 0-10 Numeric Is Patient Pain Free? 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 In the 1970's, she was diagnosed with malignant melanoma of the right calf, with metastasis to lymph nodes in the right groin. She underwent excision of the melanoma with right groin lymphadenectomy. She was subsequently treated with a long series of radiation treatments to the right groin. During the days of her radiation treatment, it is suspected that the radiation techniques were somewhat early in their evolution, and quite likely that the patient received massive doses of radiation exposure, exceeding doses which would be considered appropriate today, with techniques which are primitive by today's standards. As a result, the patient has developed soft tissue radiation injury, and has previously been treated at our wound center in the past with a series of approximately 90 hyperbaric oxygen therapy treatments, in 2011. She presented with recurrence of soft tissue radionecrosis in the right groin. Hyperbaric oxygen therapy treatments were initiated, and the patient has undergone a series of 90 additional hyperbaric oxygen treatment sessions. She has shown mild benefit from the hyperbaric oxygen treatments. At this time, there is no clinical evidence of infection or cellulitis in the blanche-ulcer area. However, the patient is responding very slowly to the variety of conventional treatment measures which have been implemented. In review of the patient's past history, each treatment course has been rather protracted in terms of healing. The patient was previously referred for consultation at [facility] (Dr. Harding), which had been arranged by our facility. Medical records related to the patient's visit at [facility] resulted in no significant new recommendations for treatment or management. The patient remains on a well-balanced diet. Given that little progress has been made in recent months, I have contacted and spoken by phone with the Basketball Player of [facility], Dr. Bassam Alas. Dr. Alas has been very helpful. He has conferred with his colleague, Plastic Surgeon Dr. Cassius Whitman. Dr. Whitman has indicated his willingness to evaluate the patient, and the patient has now been evaluated by Dr. Frausto recently. The patient was very impressed with her interaction with the plastic surgeon. A number of options were discussed. Dr. Frausto has proposed a rectus abdominis myocutaneous flap. As a prelude to flap reconstruction, the patient underwent a CT angiogram at [facility] on December 13, 2018. She met with Dr. Frausto later that same day. The patient relates that the nature of the surgical procedure, and the recovery phase, has been described in detail, and it is anticipated to be quite challenging and lengthy. It is anticipated that her surgical procedure will be scheduled at some point in the future, though the patient wishes to consider all options prior to making a firm commitment to surgical intervention. Until that occurs, the patient will follow-up in the Wound Center, and will return in 2 weeks for reassessment. Plan: The patient has been the recipient of 10 EpiFix applications. A request for preauthorization of PuraPly was denied. A series of 90 hyperbaric oxygen therapy sessions have also been completed. Attempts at preauthorization of negative pressure wound therapy have also been denied. We have used a series of [place] allografts most recently. For now, we are to continue the use of Mary topically. The patient is to continue with a nutritious diet. Biopsies of the ulceration have been obtained, and the results were negative for malignancy. The patient is now to be co-managed by Plastic Surgeon, Dr. Cassius Whitman, at [facility]. It is anticipated that the patient may undergo a rectus abdominis myocutaneous flap reconstruction in the future, and is giving consideration to all aspects related to this option. She has been given understanding that the procedure is a big ordeal, and a lengthy recovery and rehabilitation will likely follow. The patient is to return in 2 weeks for reassessment. Influenza vaccine was not administered today. The patient is not a smoker. She stands 5 feet 7 inches tall. She weighs 198 pounds. Her BMI is 31, which places her in a class I weight category. Weight loss has been recommended. She is to collaborate with her primary care physician in this regard.
== END 2019-01-06 23:59 ==
LOC: WC 08:30
PROVIDERS: Family Provider Family Medicine; PCP Family Medicine; Referring Provider Surgery; Visit Provider Surgery
DX: L59.8 Other specified disorders of the skin and subcutaneous tissue related to radiation (principal); L98.492 Non-pressure chronic ulcer of skin of other sites with fat layer exposed; Y84.2 Radiological procedure and radiotherapy as the cause of abnormal reaction of the patient, or of later complication, without mention of misadventure at the time of the procedure; Z85.42 Personal history of malignant neoplasm of other parts of uterus; E78.5 Hyperlipidemia, unspecified; Z85.820 Personal history of malignant melanoma of skin; K21.9 Gastro-esophageal reflux disease without esophagitis; E66.9 Obesity, unspecified; Z71.3 Dietary counseling and surveillance; Z86.14 Personal history of Methicillin resistant Staphylococcus aureus infection; Z89.611 Acquired absence of right leg above knee; Z87.891 Personal history of nicotine dependence; Z68.31 Body mass index [BMI] 31.0-31.9, adult
CPT/HCPCS: 11042

== ENCOUNTER 2019-02-05 09:00 | Outpatient (RCR) | payer OTHER, SELFPAY ==
[2019-01-07 00:29] VITALS: BP 149/93; PULSE 89; RESP 18; TEMP 36.1
[2019-01-08 08:36] VITALS: BP 159/85; PULSE 86; RESP 18; TEMP 36; BMI 68.3
--- NOTE | 2019-01-08 09:19 | HP.PCM_ITS ---
(1) History of uterine cancer Status: Chronic Current Visit: No Code(s): Z85.42 - Personal history of malignant neoplasm of other parts of uterus (2) History of melanoma Status: Chronic Current Visit: Yes Code(s): Z85.820 - Personal history of malignant melanoma of skin (3) Hyperlipidemia Status: Chronic Current Visit: No Code(s): E78.5 - Hyperlipidemia, unspecified (4) GERD (gastroesophageal reflux disease) Status: Chronic Current Visit: No Code(s): K21.9 - Gastro-esophageal reflux disease without esophagitis (5) Ulcer of right groin Status: Chronic Current Visit: Yes Qualifiers: Non-pressure ulcer stage: with fat layer exposed Code(s): L98.499 - Non-pressure chronic ulcer of skin of other sites with unspecified severity (6) Obesity (BMI 30.0-34.9) Status: Chronic Current Visit: No Code(s): E66.9 - Obesity, unspecified (7) Amputee, above knee Status: Chronic Current Visit: Yes Qualifiers: Laterality: right Code(s): Z89.619 - Acquired absence of unspecified leg above knee (8) Soft tissue radionecrosis Status: Chronic Current Visit: Yes Code(s): L59.8 - Other specified disorders of the skin and subcutaneous tissue related to radiation; Y84.2 - Radiological procedure and radiotherapy as the cause of abnormal reaction of the patient, or of later complication, without mention of misadventure at the time of the procedure (9) soft tissue radiation injury Status: Chronic Current Visit: Yes History of Present Illness Date of Service: 01/08/19 Chief Complaint: 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 The patient underwent excision of her melanoma with lymphadenectomy in the right groin. She also underwent lengthy radiation treatments at the [facility] in [place], [place]. Melanoma recurred, and the patient was subsequently treated with monoclonal antibodies in 1984. 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 Treatment included local ulcer care and hyperbaric oxygen therapy. She underwent a total of nearly 90 treatments of hyperbaric oxygen therapy. It is known that she tolerated the therapies well, and derived significant benefit. She relates no history of claustrophobia, or other complications related to the hyperbaric oxygen therapy treatments. She has no history of barotrauma to lungs, ears, etc. Her medical history reveals no evidence of contraindications to hyperbaric oxygen therapy. The patient's current course of management includes a total of 90 sessions of hyperbaric oxygen therapy, which have been completed without total healing of the patient's right groin ulceration. EpiFix allografts have also been used for a series of 10 applications, without total healing. It appears as though the patient's current clinical course is mimicking that of the past, with wound healing which is very recalcitrant to conventional, conservative treatment measures. 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 She has undergone excision of melanoma from the right calf, with lymphadenectomy of the right groin in the 1969's. She subsequently required surgeries of the right thigh related to osteomyelitis, MRSA infection, and radiation injury to the right femoral artery. Ultimately, the patient required right above-knee amputation, performed in 2000. She also has a remote history of open reduction and internal fixation of a right ankle fracture. Allergies/Adverse Reactions: Allergies No Known Allergies Allergy (Verified 06/20/17 09:22) Home Medications: Ambulatory Orders Medication Instructions Recorded Famotidine 20 mg PO 06/20/17 Pravastatin [Pravachol] 20 mg PO DAILY 06/20/17 - Family History Maternal - - The patient's mother is 98 years of age and relatively healthy. The patient's father at age of 79 with a history of cardiomyopathy. Smoking Status: Former smoker Tobacco Use: Non-smoker Review of Systems Constitutional: Denies: Chills, Fever, Weight Change Eyes: Denies: Pain, Vision Change HEENT: Denies: Difficulty Hearing, Difficulty Swallowing, Sinus Congestion Cardiovascular: Denies: Chest Pain, Palpitations Respiratory: Denies: Cough, Shortness of Breath Gastrointestinal: Denies: Diarrhea, Nausea, Vomiting Genitourinary: Denies: Dysuria, Hematuria Endocrine: Denies: Heat/ Cold Intolerance, Polydipsia, Polyuria Hematologic/ Lymphatic: Denies: Easy Bruising, Easy Bleeding - Physical Exam Vital Signs Temp Pulse Resp BP 96.8 F L 86 18 159/85 H 01/08/19 08:36 01/08/19 08:36 01/08/19 08:36 01/08/19 08:36 General: Alert, Oriented x3, Cooperative, No apparent distress, Well developed, Well nourished HEENT: Atraumatic, PERRLA, EOMI, Normocephalic Oral: Moist Mucosa Neck: No JVD Lungs: Normal air movement Abdomen: Non-Distended Extremities: No clubbing, No cyanosis, No edema, No Calf Tenderness, - - The ulceration of the right groin persists. It appears smaller in size. There is evidence of epithelialization superiorly and inferiorly. Centrally, however, there remains an open ulceration. Dimensions are documented elsewhere. There is no sign of infection or cellulitis. There is a moderate amount of bioburden. Skin: No rashes Wound Measurements and Assessment WC - Nurse 1 - General Ulcer Measurement Start: 01/08/19 08:36 Freq: Status: Active Protocol: Activity Type Activity Date Activity User E-Sign Co-Sign Detail Recorded Client Recorded Date Recorded By Document 01/08/19 08:36 [id number] 01/08/19 08:42 01/08/19 08:36 Wound Center Nurse 1 [Ulcer Assessment] #5 R Groin -Combined with other wound No -Current Size (cm) - Length 3 -Current Size (cm) - Width 0.4 -Current Size (cm) - Depth 0.9 -Total Square Cm 1.2 -Photo Taken Yes -Epithelialization None Present -Tunneling No -Undermining/Tunneling No -Circular Undermining No -Exudate Amt Small -Exudate Type Serosanguineous -Wound Margin Flat & Intact -Granulation Amt Medium (34-66%) -Granulation Quality Red -Slough/Fibrin Yes -Necrosis Amt Small (1-33%) -Necrotic Tissue Type Adherent Slough -Structure Exposed N/A -Texture (Blanche-wound Skin Appearance) Assessed, Fluctuance, Scarring -Moisture (Blanche-wound Skin Appearance Assessed,Dry/ ) Scaly -Color (Blanche-wound Skin Appearance) Assessed -Temperature (Blanche-wound Skin No Abnormality Appearance) (Pt Warm) -Tenderness on Palpation (Blanche-wound No Skin Appearance) -Ulcer Cleansing Rinsed/ Irrigated with Saline -Foul Odor after Cleansing No -Anesthetic Used 4% Lidocaine Solution [Edema Assessment] -Lower Limb Edema Present NA - Nurse 2 - General Ulcer CM Notes Start: 01/08/19 08:36 Freq: Status: Active Protocol: Activity Type Activity Date Activity User E-Sign Co-Sign Detail Recorded Client Recorded Date Recorded By Document 01/08/19 09:05 DV [id number] 01/08/19 09:10 DV 01/08/19 09:05 Wound Center Nurse 2 [Procedure/Treatment] #5 R Groin -Time 09:08 -Correct Patient Yes -Correct Side, Site, Position Yes -Correct Procedure Yes -Procedure Performed Yes -Type of Procedure Debridement -Clinical Debridement Subcutaneous -Post Debridement Size (cm) - Length 0.6 -Post Debridement Size (cm) - Width 0.6 -Post Debridement Size (cm) - Depth 0.9 -Total Square Cm 0.36 -Wound/Ulcer Outcome Not Healed -Ulcer Cleansing Rinsed/ Irrigated with Saline -Foul Odor after Cleansing No -Bioengineered Tissue No -Bleeding Controlled with Pressure -Offloading No -Treatment Response Procedure Tolerated Well [See Physician Procedure note for Specifics] Pain Scale: 0-10 Numeric [Pain] -Is Patient Pain Free? Yes Musculoskeletal: No Muscle Wasting Neurological: Cranial nerves II-XII grossly intact, Neuro grossly intact Psych/Mental Status: Normal Affect, Appropriate, Alert and oriented to time, place, person, mood and affect Debridement Note Post-Debridement Measurements/Treatment - Nurse 2 - General Ulcer CM Notes Start: 01/08/19 08:36 Freq: Status: Active Protocol: Activity Type Activity Date Activity User E-Sign Co-Sign Detail Recorded Client Recorded Date Recorded By Document 01/08/19 09:05 DV [id number] 01/08/19 09:10 DV 01/08/19 09:05 Wound Center Nurse 2 #5 R Groin -Time 09:08 -Correct Patient Yes -Correct Side, Site, Position Yes -Correct Procedure Yes -Procedure Performed Yes -Type of Procedure Debridement -Clinical Debridement Subcutaneous -Post Debridement Size (cm) - Length 0.6 -Post Debridement Size (cm) - Width 0.6 -Post Debridement Size (cm) - Depth 0.9 -Total Square Cm 0.36 -Wound/Ulcer Outcome Not Healed -Ulcer Cleansing Rinsed/ Irrigated with Saline -Foul Odor after Cleansing No -Bioengineered Tissue No -Bleeding Controlled with Pressure -Offloading No -Treatment Response Procedure Tolerated Well Pain Scale: 0-10 Numeric Is Patient Pain Free? 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 In the 1970's, she was diagnosed with malignant melanoma of the right calf, with metastasis to lymph nodes in the right groin. She underwent excision of the melanoma with right groin lymphadenectomy. She was subsequently treated with a long series of radiation treatments to the right groin. During the days of her radiation treatment, it is suspected that the radiation techniques were somewhat early in their evolution, and quite likely that the patient received massive doses of radiation exposure, exceeding doses which would be considered appropriate today, with techniques which are primitive by today's standards. As a result, the patient has developed soft tissue radiation injury, and has previously been treated at our wound center in the past with a series of approximately 90 hyperbaric oxygen therapy treatments, in 2011. She presented with recurrence of soft tissue radionecrosis in the right groin. Hyperbaric oxygen therapy treatments were initiated, and the patient has undergone a series of 90 additional hyperbaric oxygen treatment sessions. She has shown mild benefit from the hyperbaric oxygen treatments. At this time, there is no clinical evidence of infection or cellulitis in the blanche-ulcer area. However, the patient is responding very slowly to the variety of conventional treatment measures which have been implemented. In review of the patient's past history, each treatment course has been rather protracted in terms of healing. The patient was previously referred for consultation at [facility] (Dr. Harding), which had been arranged by our facility. Medical records related to the patient's visit at [facility] resulted in no significant new recommendations for treatment or management. The patient remains on a well- balanced diet. Given that little progress has been made in recent months, I have contacted and spoken by phone with the Financial Services Auditor of the [facility], Dr. Bassam Alas. Dr. Alas has been very helpful. He has conferred with his colleague, Plastic Surgeon Dr. Cassius Whitman. Dr. Whitman has indicated his willingness to evaluate the patient, and the patient has now been evaluated by Dr. Frausto recently. The patient was very impressed with her interaction with the plastic surgeon. A number of options were discussed. Dr. Frausto has proposed a rectus abdominis myocutaneous flap. As a prelude to flap reconstruction, the patient underwent a CT angiogram at [facility] on December 13, 2018. She met with Dr. Frausto later that same day. The patient relates that the nature of the surgical procedure, and the recovery phase, has been described in d etail, and it is anticipated to be quite challenging and lengthy. It is anticipated that her surgical procedure will be scheduled at some point in the future, though the patient wishes to consider all options prior to making a firm commitment to surgical intervention. Until that occurs, the patient will follow-up in the Wound Center, and will return in 2 weeks for reassessment. Plan: The patient has been the recipient of 10 EpiFix applications. A request for preauthorization of PuraPly was denied. A series of 90 hyperbaric oxygen therapy sessions have also been completed. Attempts at preauthorization of negative pressure wound therapy have also been denied. We have used a series of [place] allografts. For now, we are to continue the use of Mary topically. T he patient is to continue with a nutritious diet. Biopsies of the ulceration have been obtained, and the results were negative for malignancy. The patient is now to be co-managed by Plastic Surgeon, Dr. Cassius Whitman, at [facility]. It is anticipated that the patient may undergo a rectus abdominis myocutaneous flap reconstruction in the future, and is giving consideration to all aspects related to this option. She has been given understanding that the procedure is a big ordeal, and a lengthy recovery and rehabilitation will likely follow. She has seen a general surgeon at [facility] (Dr. Nunez) most recently, and is scheduled to be evaluated by a vascular surgeon at [facility] in 3 to 4 weeks. This multidisciplinary team of surgeons will determine the patient's candidacy for major myocutaneous flap reconstruction, and will be the team involved in performing the procedure if it is deemed that the patient is a suitable candidate. This will also depend upon the patient's decision to proceed with major surgical reconstruction. The patient is to return in 2 weeks for reassessment. Influenza vaccine was not administered today. The patient is not a smoker. She stands 5 feet 7 inches tall. She weighs 198 pounds. Her BMI is 31, which places her in a class I weight category. Weight loss has been recommended. She is to collaborate with her primary care physician in this regard.
[2019-01-22 08:32] VITALS: BP 151/93; PULSE 84; RESP 18; TEMP 35.9; BMI 68.3
--- NOTE | 2019-01-22 09:05 | HP.PCM_ITS ---
(1) History of uterine cancer Status: Chronic Current Visit: No Code(s): Z85.42 - Personal history of malignant neoplasm of other parts of uterus (2) History of melanoma Status: Chronic Current Visit: Yes Code(s): Z85.820 - Personal history of malignant melanoma of skin (3) Hyperlipidemia Status: Chronic Current Visit: No Code(s): E78.5 - Hyperlipidemia, unspecified (4) GERD (gastroesophageal reflux disease) Status: Chronic Current Visit: No Code(s): K21.9 - Gastro-esophageal reflux disease without esophagitis (5) Ulcer of right groin Status: Chronic Current Visit: Yes Qualifiers: Non-pressure ulcer stage: with fat layer exposed Code(s): L98.499 - Non-pressure chronic ulcer of skin of other sites with unspecified severity (6) Obesity (BMI 30.0-34.9) Status: Chronic Current Visit: No Code(s): E66.9 - Obesity, unspecified (7) Amputee, above knee Status: Chronic Current Visit: Yes Qualifiers: Laterality: right Code(s): Z89.619 - Acquired absence of unspecified leg above knee (8) Soft tissue radionecrosis Status: Chronic Current Visit: Yes Code(s): L59.8 - Other specified disorders of the skin and subcutaneous tissue related to radiation; Y84.2 - Radiological procedure and radiotherapy as the cause of abnormal reaction of the patient, or of later complication, without mention of misadventure at the time of the procedure (9) soft tissue radiation injury Status: Chronic Current Visit: Yes History of Present Illness Date of Service: 01/22/19 Chief Complaint: 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 The patient underwent excision of her melanoma with lymphadenectomy in the right groin. She also underwent lengthy radiation treatments at the [facility] in [place], [place]. Melanoma recurred, and the patient was subsequently treated with monoclonal antibodies in 1984. 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 Treatment included local ulcer care and hyperbaric oxygen therapy. She underwent a total of nearly 90 treatments of hyperbaric oxygen therapy. It is known that she tolerated the therapies well, and derived significant benefit. She relates no history of claustrophobia, or other complications related to the hyperbaric oxygen therapy treatments. She has no history of barotrauma to lungs, ears, etc. Her medical history reveals no evidence of contraindications to hyperbaric oxygen therapy. The patient's current course of management includes a total of 90 sessions of hyperbaric oxygen therapy, which have been completed without total healing of the patient's right groin ulceration. EpiFix allografts have also been used for a series of 10 applications, without total healing. It appears as though the patient's current clinical course is mimicking that of the past, with wound healing which is very recalcitrant to conventional, conservative treatment measures. 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 She has undergone excision of melanoma from the right calf, with lymphadenectomy of the right groin in the 1969's. She subsequently required surgeries of the right thigh related to osteomyelitis, MRSA infection, and radiation injury to the right femoral artery. Ultimately, the patient required right above-knee amputation, performed in 2000. She also has a remote history of open reduction and internal fixation of a right ankle fracture. Allergies/Adverse Reactions: Allergies No Known Allergies Allergy (Verified 06/20/17 09:22) Home Medications: Ambulatory Orders Medication Instructions Recorded Famotidine 20 mg PO 06/20/17 Pravastatin [Pravachol] 20 mg PO DAILY 06/20/17 - Family History Maternal - - The patient's mother is 98 years of age and relatively healthy. The patient's father at age of 79 with a history of cardiomyopathy. Smoking Status: Former smoker Tobacco Use: Non-smoker Review of Systems Constitutional: Denies: Chills, Fever, Weight Change Eyes: Denies: Pain, Vision Change HEENT: Denies: Difficulty Hearing, Difficulty Swallowing, Sinus Congestion Cardiovascular: Denies: Chest Pain, Palpitations Respiratory: Denies: Cough, Shortness of Breath Gastrointestinal: Denies: Diarrhea, Nausea, Vomiting Genitourinary: Denies: Dysuria, Hematuria Endocrine: Denies: Heat/ Cold Intolerance, Polydipsia, Polyuria Hematologic/ Lymphatic: Denies: Easy Bruising, Easy Bleeding - Physical Exam Vital Signs Temp Pulse Resp BP 96.7 F L 84 18 151/93 H 01/22/19 08:32 01/22/19 08:32 01/22/19 08:32 01/22/19 08:32 General: Alert, Oriented x3, Cooperative, No apparent distress, Well developed, Well nourished HEENT: Atraumatic, PERRLA, EOMI, Normocephalic Oral: Moist Mucosa Neck: No JVD Lungs: Normal air movement Abdomen: Non-Distended Extremities: No clubbing, No cyanosis, No edema, No Calf Tenderness, - - A right above-knee amputation is noted. The stump incision is well-healed. The wound in the right groin persists. However, it appears to be slightly smaller in size. Dimensions are documented elsewhere. There is no sign of infection or cellulitis. There is a mild amount of bioburden and some nonviable tissue. Skin: No rashes Wound Measurements and Assessment WC - Nurse 1 - General Ulcer Measurement Start: 01/08/19 08:36 Freq: Status: Active Protocol: Activity Type Activity Date Activity User E-Sign Co-Sign Detail Recorded Client Recorded Date Recorded By Document 01/22/19 08:32 DL [id number] 01/22/19 08:38 DL 01/22/19 08:32 Wound Center Nurse 1 [Ulcer Assessment] #5 R Groin -Current Size (cm) - Length 3 -Current Size (cm) - Width 0.5 -Current Size (cm) - Depth 0.4 -Total Square Cm 1.5 -Photo Taken No -Exudate Amt Small -Exudate Type Sanguineous -Wound Margin Thickened -Granulation Amt Large (67-100%) -Granulation Quality Melba -Necrosis Amt Small (1-33%) -Necrotic Tissue Type Adherent Slough -Structure Exposed N/A -Texture (Blanche-wound Skin Appearance) Scarring -Moisture (Blanche-wound Skin Appearance No Abnormality ) -Color (Blanche-wound Skin Appearance) Rubor -Temperature (Blanche-wound Skin No Abnormality Appearance) (Pt Warm) -Tenderness on Palpation (Blanche-wound No Skin Appearance) -Ulcer Cleansing Rinsed/ Irrigated with Saline -Foul Odor after Cleansing No -Anesthetic Used 5% Lidocaine Gel - Nurse 2 - General Ulcer CM Notes Start: 01/08/19 08:36 Freq: Status: Active Protocol: Activity Type Activity Date Activity User E-Sign Co-Sign Detail Recorded Client Recorded Date Recorded By Document 01/22/19 09:03 DV [id number] 01/22/19 09:04 DV 01/22/19 09:03 Wound Center Nurse 2 [Procedure/Treatment] -Time 09:03 -Correct Patient Yes -Correct Side, Site, Position Yes -Correct Procedure Yes -Procedure Performed Yes -Type of Procedure Debridement -Clinical Debridement Subcutaneous -Post Debridement Size (cm) - Length 3.5 -Post Debridement Size (cm) - Width 0.5 -Post Debridement Size (cm) - Depth 0.4 -Total Square Cm 1.75 -Wound/Ulcer Outcome Not Healed -Ulcer Cleansing Rinsed/ Irrigated with Saline -Foul Odor after Cleansing No -Bioengineered Tissue No -Bleeding Controlled with Pressure -Offloading No -Treatment Response Procedure Tolerated Well [See Physician Procedure note for Specifics] Pain Scale: 0-10 Numeric [Pain] -Is Patient Pain Free? Yes Musculoskeletal: No Muscle Wasting Neurological: Cranial nerves II-XII grossly intact, Neuro grossly intact Psych/Mental Status: Normal Affect, Appropriate, Alert and oriented to time, place, person, mood and affect Debridement Note Post-Debridement Measurements/Treatment - Nurse 2 - General Ulcer CM Notes Start: 01/08/19 08:36 Freq: Status: Active Protocol: Activity Type Activity Date Activity User E-Sign Co-Sign Detail Recorded Client Recorded Date Recorded By Document 01/08/19 09:05 DV [id number] 01/08/19 09:10 DV Document 01/22/19 09:03 DV [id number] 01/22/19 09:04 DV 01/08/19 01/22/19 09:05 09:03 Wound Center Nurse 2 #5 R Groin -Time 09:08 09:03 -Correct Patient Yes Yes -Correct Side, Site, Position Yes Yes -Correct Procedure Yes Yes -Procedure Performed Yes Yes -Type of Procedure Debridement Debridement -Clinical Debridement Subcutaneous Subcutaneous -Post Debridement Size (cm) - Length 0.6 3.5 -Post Debridement Size (cm) - Width 0.6 0.5 -Post Debridement Size (cm) - Depth 0.9 0.4 -Total Square Cm 0.36 1.75 -Wound/Ulcer Outcome Not Healed Not Healed -Ulcer Cleansing Rinsed/ Rinsed/ Irrigated with Irrigated with Saline Saline -Foul Odor after Cleansing No No -Bioengineered Tissue No No -Bleeding Controlled with Pressure Pressure -Offloading No No -Treatment Response Procedure Procedure Tolerated Well Tolerated Well Pain Scale: 0-10 Numeric Is Patient Pain Free? 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 In the 1970's, she was diagnosed with malignant melanoma of the right calf, with metastasis to lymph nodes in the right groin. She underwent excision of the melanoma with right groin lymphadenectomy. She was subsequently treated with a long series of radiation treatments to the right groin. During the days of her radiation treatment, it is suspected that the radiation techniques were somewhat early in their evolution, and quite likely that the patient received massive doses of radiation exposure, exceeding doses which would be considered appropriate today, with techniques which are primitive by today's standards. As a result, the patient has developed soft tissue radiation injury, and has previously been treated at our wound center in the past with a series of approximately 90 hyperbaric oxygen therapy treatments, in 2011. She presented with recurrence of soft tissue radionecrosis in the right groin. Hyperbaric oxygen therapy treatments were initiated, and the patient has undergone a series of 90 additional hyperbaric oxygen treatment sessions. She has shown mild benefit from the hyperbaric oxygen treatments. At this time, there is no clinical evidence of infection or cellulitis in the blanche-ulcer area. However, the patient is responding very slowly to the variety of conventional treatment measures which have been implemented. In review of the patient's past history, each treatment course has been rather protracted in terms of healing. The patient was previously referred for consultation at [facility] (Dr. Harding), which had been arranged by our facility. Medical records related to the patient's visit at [facility] resulted in no significant new recommendations for treatment or management. The patient remains on a well- balanced diet. Given that little progress has been made in recent months, I have contacted and spoken by phone with the Commercial [employer] of [facility], Dr. Bassam Alas. Dr. Alas has been very helpful. He has conferred with his colleague, Plastic Surgeon Dr. Cassius Whitman. Dr. Whitman has indicated his willingness to evaluate the patient, and the patient has now been evaluated by Dr. Frausto recently. The patient was very impressed with her interaction with the plastic surgeon. A number of options were discussed. Dr. Frausto has proposed a rectus abdominis myocutaneous flap. As a prelude to flap reconstruction, the patient underwent a CT angiogram at [facility] on December 13, 2018. She met with Dr. Frausto later that same day. The patient relates that the nature of the surgical procedure, and the recovery phase, has been described in detail, and it is anticipated to be quite challenging and lengthy. It is anticipated that her surgical procedure will be scheduled at some point in the future, though the patient wishes to consider all options prior to making a firm commitment to surgical intervention. Until that occurs, the patient will follow-up in the Wound Center, and will return in 2 weeks for reassessment. Plan: The patient has been the recipient of 10 EpiFix applications. A request for preauthorization of PuraPly was denied. A series of 90 hyperbaric oxygen therapy sessions have also been completed. Attempts at preauthorization of negative pressure wound therapy have also been denied. We have used a series of [place] allografts. For now, we are to continue the use of Mary topically. Requests for preauthorization of advanced therapies have been denied. The patient is to continue with a nutritious diet. Biopsies of the ulceration have been obtained, and the results were negative for malignancy. The patient is now to be co-managed by Plastic Surgeon, Dr. Cassius Whitman, at [facility]. It is anticipated that the patient may undergo a rectus abdominis myocutaneous flap reconstruction in the future, and is giving consideration to all aspects related to this option. She has been given understanding that the procedure is a big ordeal, and a lengthy recovery and rehabilitation will likely follow. She has seen a general surgeon at [facility] (Dr. Nunez) most recently, and is scheduled to be evaluated by a vascular surgeon at [facility] in early February 2019. This multidisciplinary team of surgeons will determine the patient's candidacy for major myocutaneous flap reconstruction, and will be the team involved in performing the procedure if it is deemed that the patient is a suitable candidate. This will also depend upon the patient's decision to proceed with major surgical reconstruction. At this juncture, the patient is very equivocal about whether to proceed with the procedure, given its stated morbidities. The patient is to return in 2 weeks for reassessment. Influenza vaccine was not administered today. The patient is not a smoker. She stands 5 feet 7 inches tall. She weighs 198 pounds. Her BMI is 31, which places her in a class I weight category. Weight loss has been recommended. She is to collaborate with her primary care physician in this regard.
[2019-02-05 09:11] VITALS: BP 138/78; PULSE 79; RESP 16; TEMP 36.3; BMI 68.3
--- NOTE | 2019-02-05 09:57 | HP.PCM_ITS ---
(1) History of uterine cancer Status: Chronic Current Visit: No Code(s): Z85.42 - Personal history of malignant neoplasm of other parts of uterus (2) History of melanoma Status: Chronic Current Visit: Yes Code(s): Z85.820 - Personal history of malignant melanoma of skin (3) Hyperlipidemia Status: Chronic Current Visit: No Code(s): E78.5 - Hyperlipidemia, unspecified (4) GERD (gastroesophageal reflux disease) Status: Chronic Current Visit: No Code(s): K21.9 - Gastro-esophageal reflux disease without esophagitis (5) Ulcer of right groin Status: Chronic Current Visit: Yes Qualifiers: Non-pressure ulcer stage: with fat layer exposed Code(s): L98.499 - Non-pressure chronic ulcer of skin of other sites with unspecified severity (6) Obesity (BMI 30.0-34.9) Status: Chronic Current Visit: No Code(s): E66.9 - Obesity, unspecified (7) Amputee, above knee Status: Chronic Current Visit: Yes Qualifiers: Laterality: right Code(s): Z89.619 - Acquired absence of unspecified leg above knee (8) Soft tissue radionecrosis Status: Chronic Current Visit: Yes Code(s): L59.8 - Other specified disorders of the skin and subcutaneous tissue related to radiation; Y84.2 - Radiological procedure and radiotherapy as the cause of abnormal reaction of the patient, or of later complication, without mention of misadventure at the time of the procedure (9) soft tissue radiation injury Status: Chronic Current Visit: Yes History of Present Illness Date of Service: 02/05/19 Chief Complaint: 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 The patient underwent excision of her melanoma with lymphadenectomy in the right groin. She also underwent lengthy radiation treatments at the [facility] in [place], [place]. Melanoma recurred, and the patient was subsequently treated with monoclonal antibodies in 1984. 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 Treatment included local ulcer care and hyperbaric oxygen therapy. She underwent a total of nearly 90 treatments of hyperbaric oxygen therapy. It is known that she tolerated the therapies well, and derived significant benefit. She relates no history of claustrophobia, or other complications related to the hyperbaric oxygen therapy treatments. She has no history of barotrauma to lungs, ears, etc. Her medical history reveals no evidence of contraindications to hyperbaric oxygen therapy. The patient's current course of management includes a total of 90 sessions of hyperbaric oxygen therapy, which have been completed without total healing of the patient's right groin ulceration. EpiFix allografts have also been used for a series of 10 applications, without total healing. It appears as though the patient's current clinical course is mimicking that of the past, with wound healing which is very recalcitrant to conventional, conservative treatment measures. 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 She has undergone excision of melanoma from the right calf, with lymphadenectomy of the right groin in the 1969's. She subsequently required surgeries of the right thigh related to osteomyelitis, MRSA infection, and radiation injury to the right femoral artery. Ultimately, the patient required right above-knee amputation, performed in 2000. She also has a remote history of open reduction and internal fixation of a right ankle fracture. Allergies/Adverse Reactions: Allergies No Known Allergies Allergy (Verified 06/20/17 09:22) Home Medications: Ambulatory Orders Medication Instructions Recorded Famotidine 20 mg PO 06/20/17 Pravastatin [Pravachol] 20 mg PO DAILY 06/20/17 - Family History Maternal - - The patient's mother is 98 years of age and relatively healthy. The patient's father at age of 79 with a history of cardiomyopathy. Smoking Status: Former smoker Tobacco Use: Non-smoker Review of Systems Constitutional: Denies: Chills, Fever, Weight Change Eyes: Denies: Pain, Vision Change HEENT: Denies: Difficulty Hearing, Difficulty Swallowing, Sinus Congestion Cardiovascular: Denies: Chest Pain, Palpitations Respiratory: Denies: Cough, Shortness of Breath Gastrointestinal: Denies: Diarrhea, Nausea, Vomiting Genitourinary: Denies: Dysuria, Hematuria Endocrine: Denies: Heat/ Cold Intolerance, Polydipsia, Polyuria Hematologic/ Lymphatic: Denies: Easy Bruising, Easy Bleeding - Physical Exam Vital Signs Temp Pulse Resp BP 97.3 F L 79 16 138/78 H 02/05/19 09:11 02/05/19 09:11 02/05/19 09:11 02/05/19 09:11 General: Alert, Oriented x3, Cooperative, No apparent distress, Well developed, Well nourished HEENT: Atraumatic, PERRLA, EOMI, Normocephalic Oral: Moist Mucosa Neck: No JVD Lungs: Normal air movement Abdomen: Non-Distended Extremities: No clubbing, No cyanosis, No edema, No Calf Tenderness, - - A well- healed right above-knee amputation stump is noted. The ulceration in the right groin persists. It appears to be slightly smaller in size. Dimensions are documented elsewhere. There is no sign of infection or cellulitis. There is a small amount of bioburden. Skin: No rashes Wound Measurements and Assessment WC - Nurse 1 - General Ulcer Measurement Start: 01/08/19 08:36 Freq: Status: Active Protocol: Activity Type Activity Date Activity User E-Sign Co-Sign Detail Recorded Client Recorded Date Recorded By Document 02/05/19 09:11 HARDIK [id number] 02/05/19 09:12 HARDIK 02/05/19 09:11 Wound Center Nurse 1 [Ulcer Assessment] #5 R Groin -Combined with other wound No -Current Size (cm) - Length 3.5 -Current Size (cm) - Width 0.6 -Current Size (cm) - Depth 0.6 -Total Square Cm 2.10 -Photo Taken No -Epithelialization Small 1-33% -Tunneling No -Undermining/Tunneling No -Circular Undermining No -Exudate Amt Small -Exudate Type Serosanguineous -Wound Margin Flat & Intact -Granulation Amt Medium (34-66%) -Granulation Quality Red -Slough/Fibrin Yes -Necrosis Amt Medium (34-66%) -Necrotic Tissue Type Adherent Slough -Structure Exposed N/A -Texture (Blanche-wound Skin Appearance) Assessed, Scarring -Moisture (Blanche-wound Skin Appearance Assessed,Dry/ ) Scaly -Color (Blanche-wound Skin Appearance) Assessed -Temperature (Blanche-wound Skin No Abnormality Appearance) (Pt Warm) -Tenderness on Palpation (Blanche-wound No Skin Appearance) -Ulcer Cleansing Rinsed/ Irrigated with Saline -Foul Odor after Cleansing No -Anesthetic Used 4% Lidocaine Solution [Edema Assessment] -Lower Limb Edema Present NA - Nurse 2 - General Ulcer CM Notes Start: 01/08/19 08:36 Freq: Status: Active Protocol: Activity Type Activity Date Activity User E-Sign Co-Sign Detail Recorded Client Recorded Date Recorded By Document 02/05/19 09:47 DV [id number] 02/05/19 09:50 DV 02/05/19 09:47 Wound Center Nurse 2 [Procedure/Treatment] #5 R Groin -Time 09:48 -Correct Patient Yes -Correct Side, Site, Position Yes -Correct Procedure Yes -Procedure Performed Yes -Type of Procedure Debridement -Clinical Debridement Subcutaneous -Post Debridement Size (cm) - Length 0.5 -Post Debridement Size (cm) - Width 0.4 -Post Debridement Size (cm) - Depth 0.3 -Total Square Cm 0.20 -Wound/Ulcer Outcome Not Healed -Ulcer Cleansing Rinsed/ Irrigated with Saline -Foul Odor after Cleansing No -Bioengineered Tissue No -Bleeding Controlled with Pressure -Offloading No -Treatment Response Procedure Tolerated Well [See Physician Procedure note for Specifics] Pain Scale: 0-10 Numeric [Pain] -Is Patient Pain Free? Yes Musculoskeletal: No Muscle Wasting Neurological: Cranial nerves II-XII grossly intact, Neuro grossly intact Psych/Mental Status: Normal Affect, Appropriate, Alert and oriented to time, place, person, mood and affect Debridement Note Post-Debridement Measurements/Treatment - Nurse 2 - General Ulcer CM Notes Start: 01/08/19 08:36 Freq: Status: Active Protocol: Activity Type Activity Date Activity User E-Sign Co-Sign Detail Recorded Client Recorded Date Recorded By Document 01/08/19 09:05 DV [id number] 01/08/19 09:10 DV Document 07/16/19 09:03 DV [id number] 01/22/19 09:04 DV Document 02/05/19 09:47 DV [id number] 02/05/19 09:50 DV 01/08/19 01/22/19 02/05/19 09:05 09:03 09:47 Wound Center Nurse 2 #5 R Groin -Time 09:08 09:03 09:48 -Correct Patient Yes Yes Yes -Correct Side, Site, Position Yes Yes Yes -Correct Procedure Yes Yes Yes -Procedure Performed Yes Yes Yes -Type of Procedure Debridement Debridement Debridement -Clinical Debridement Subcutaneous Subcutaneous Subcutaneous -Post Debridement Size (cm) - Length 0.6 3.5 0.5 -Post Debridement Size (cm) - Width 0.6 0.5 0.4 -Post Debridement Size (cm) - Depth 0.9 0.4 0.3 -Total Square Cm 0.36 1.75 0.20 -Wound/Ulcer Outcome Not Healed Not Healed Not Healed -Ulcer Cleansing Rinsed/ Rinsed/ Rinsed/ Irrigated with Irrigated with Irrigated with Saline Saline Saline -Foul Odor after Cleansing No No No -Bioengineered Tissue No No No -Bleeding Controlled with Pressure Pressure Pressure -Offloading No No No -Treatment Response Procedure Procedure Procedure Tolerated Well Tolerated Well Tolerated Well Pain Scale: 0-10 Numeric Is Patient Pain Free? 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 In the 1969's, she was diagnosed with malignant melanoma of the right calf, with metastasis to lymph nodes in the right groin. She underwent excision of the melanoma with right groin lymphadenectomy. She was subsequently treated with a long series of radiation treatments to the right groin. During the days of her radiation treatment, it is suspected that the radiation techniques were somewhat early in their evolution, and quite likely that the patient received massive doses of radiation exposure, exceeding doses which would be considered appropriate today, with techniques which are primitive by today's standards. As a result, the patient has developed soft tissue radiation injury, and has previously been treated at our wound center in the past with a series of approximately 90 hyperbaric oxygen therapy treatments, in 2011. She presented with recurrence of soft tissue radionecrosis in the right groin. Hyperbaric oxygen therapy treatments were initiated, and the patient has undergone a series of 90 additional hyperbaric oxygen treatment sessions. She has shown mild benefit from the hyperbaric oxygen treatments. At this time, there is no clinical evidence of infection or cellulitis in the blanche-ulcer area. However, the patient is responding very slowly to the variety of conventional treatment measures which have been implemented. In review of the patient's past history, each treatment course has been rather protracted in terms of healing. The patient was previously referred for consultation at [facility] (Dr. Harding), which had been arranged by our facility. Medical records related to the patient's visit at [facility] resulted in no significant new recommendations for treatment or management. The patient remains on a well- balanced diet. Given that little progress has been made in recent months, I have contacted and spoken by phone with the [facility]ile Attendant of the [facility], Dr. Bassam Alas. Dr. Alas has been very helpful. He has conferred with his colleague, Plastic Surgeon Dr. Cassius Whitman. Dr. Whitman has indicated his willingness to evaluate the patient, and the patient has now been evaluated by Dr. Frausto recently. The patient was very impressed with her interaction with the plastic surgeon. A number of options were discussed. Dr. Frausto has proposed a rectus abdominis myocutaneous flap. As a prelude to flap reconstruction, the patient underwent a CT angiogram at [facility] on December 13, 2018. She met with Dr. Frausto later that same day. The patient relates that the nature of the surgical procedure, and the recovery phase, has been described in d etail, and it is anticipated to be quite challenging and lengthy. It is anticipated that her surgical procedure will be scheduled at some point in the future, though the patient wishes to consider all options prior to making a firm commitment to surgical intervention. Until that occurs, the patient will follow-up in the Wound Center, and will return in 2 weeks for reassessment. Plan: The patient has been the recipient of 10 EpiFix applications. A request for preauthorization of PuraPly was denied. A series of 90 hyperbaric oxygen therapy sessions have also been completed. Attempts at preauthorization of negative pressure wound therapy have also been denied. We have used a series of [place] allografts. For now, we are to continue the use of Mary topically. R equests for preauthorization of advanced therapies have been denied. The patient is to continue with a nutritious diet. Biopsies of the ulceration have been obtained, and the results were negative for malignancy. The patient is now to be co-managed by Plastic Surgeon, Dr. Cassius Whitman, at [facility]. It is anticipated that the patient may undergo a rectus abdominis myocutaneous flap reconstruction in the future, and is giving consideration to all aspects related to this option. She has been given understanding that the procedure is a big ordeal, and a lengthy recovery and rehabilitation will likely follow. She has seen a general surgeon at [facility] (Dr. Nunez) most recently, and is scheduled to be evaluated by a vascular surgeon at [facility] in early February 2019. This multidisciplinary team of surgeons will determine the patient's candidacy for major myocutaneous flap reconstruction, and will be the team involved in performing the procedure if it is deemed that the patient is a suitable candidate. This will also depend upon the patient's decision to proceed with major surgical reconstruction. At this juncture, the patient is very equivocal about whether to proceed with the procedure, given its stated morbidities. The patient is to return in 2 weeks for reassessment. Influenza vaccine was not administered today. The patient is not a smoker. She stands 5 feet 7 inches tall. She weighs 198 pounds. Her BMI is 31, which places her in a class I weight category. Weight loss has been recommended. She is to collaborate with her primary care physician in this regard.
== END 2019-02-06 23:59 ==
LOC: WC 09:00
PROVIDERS: Family Provider Family Medicine; PCP Family Medicine; Referring Provider Surgery; Visit Provider Surgery
DX: L59.8 Other specified disorders of the skin and subcutaneous tissue related to radiation (principal); E78.5 Hyperlipidemia, unspecified; K21.9 Gastro-esophageal reflux disease without esophagitis; L98.492 Non-pressure chronic ulcer of skin of other sites with fat layer exposed; E66.9 Obesity, unspecified; Z71.3 Dietary counseling and surveillance; Z85.89 Personal history of malignant neoplasm of other organs and systems; Z85.820 Personal history of malignant melanoma of skin; Z86.14 Personal history of Methicillin resistant Staphylococcus aureus infection; Z85.42 Personal history of malignant neoplasm of other parts of uterus; Z89.611 Acquired absence of right leg above knee; Z87.891 Personal history of nicotine dependence; Z68.31 Body mass index [BMI] 31.0-31.9, adult
CPT/HCPCS: 11042

== ENCOUNTER 2019-03-05 08:30 | Outpatient (RCR) | payer OTHER, SELFPAY ==
[2019-02-07 00:34] VITALS: BP 138/78; PULSE 79; RESP 16; TEMP 36.3
[2019-02-19 08:10] VITALS: BP 158/89; PULSE 98; RESP 18; TEMP 36.4; BMI 68.3
--- NOTE | 2019-02-19 09:16 | PCM.WC.HP ---
(1) History of uterine cancer Status: Chronic Current Visit: No Code(s): Z85.42 - Personal history of malignant neoplasm of other parts of uterus (2) History of melanoma Status: Chronic Current Visit: Yes Code(s): Z85.820 - Personal history of malignant melanoma of skin (3) Hyperlipidemia Status: Chronic Current Visit: No Code(s): E78.5 - Hyperlipidemia, unspecified (4) GERD (gastroesophageal reflux disease) Status: Chronic Current Visit: No Code(s): K21.9 - Gastro-esophageal reflux disease without esophagitis (5) Ulcer of right groin Status: Chronic Current Visit: Yes Qualifiers: Non-pressure ulcer stage: with fat layer exposed Code(s): L98.499 - Non-pressure chronic ulcer of skin of other sites with unspecified severity (6) Obesity (BMI 30.0-34.9) Status: Chronic Current Visit: No Code(s): E66.9 - Obesity, unspecified (7) Amputee, above knee Status: Chronic Current Visit: Yes Qualifiers: Laterality: right Qualified Code(s): Z89.611 - Acquired absence of right leg above knee Code(s): Z89.619 - Acquired absence of unspecified leg above knee (8) Soft tissue radionecrosis Status: Chronic Current Visit: Yes Code(s): L59.8 - Other specified disorders of the skin and subcutaneous tissue related to radiation; Y84.2 - Radiological procedure and radiotherapy as the cause of abnormal reaction of the patient, or of later complication, without mention of misadventure at the time of the procedure (9) soft tissue radiation injury Status: Chronic Current Visit: Yes History of Present Illness Date of Service: 02/19/19 Chief Complaint: 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 The patient underwent excision of her melanoma with lymphadenectomy in the right groin. She also underwent lengthy radiation treatments at the [facility] in [place], [place]. Melanoma recurred, and the patient was subsequently treated with monoclonal antibodies in 1984. 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 Treatment included local ulcer care and hyperbaric oxygen therapy. She underwent a total of nearly 90 treatments of hyperbaric oxygen therapy. It is known that she tolerated the therapies well, and derived significant benefit. She relates no history of claustrophobia, or other complications related to the hyperbaric oxygen therapy treatments. She has no history of barotrauma to lungs, ears, etc. Her medical history reveals no evidence of contraindications to hyperbaric oxygen therapy. The patient's current course of management includes a total of 90 sessions of hyperbaric oxygen therapy, which have been completed without total healing of the patient's right groin ulceration. EpiFix allografts have also been used for a series of 10 applications, without total healing. It appears as though the patient's current clinical course is mimicking that of the past, with wound healing which is very recalcitrant to conventional, conservative treatment measures. 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 She has undergone excision of melanoma from the right calf, with lymphadenectomy of the right groin in the s. She subsequently required surgeries of the right thigh related to osteomyelitis, MRSA infection, and radiation injury to the right femoral artery. Ultimately, the patient required right above-knee amputation, performed in 2000. She also has a remote history of open reduction and internal fixation of a right ankle fracture. Allergies/Adverse Reactions: Allergies No Known Allergies Allergy (Verified 06/20/17 09:22) Home Medications: Ambulatory Orders Medication Instructions Recorded Famotidine 20 mg PO 06/20/17 Pravastatin [Pravachol] 20 mg PO DAILY 06/20/17 - Family History Maternal - - The patient's mother is 98 years of age and relatively healthy. The patient's father at age of 79 with a history of cardiomyopathy. Smoking Status: Former smoker Tobacco Use: Non-smoker Review of Systems Constitutional: Denies: Chills, Fever, Weight Change Eyes: Denies: Pain, Vision Change HEENT: Denies: Difficulty Hearing, Difficulty Swallowing, Sinus Congestion Cardiovascular: Denies: Chest Pain, Palpitations Respiratory: Denies: Cough, Shortness of Breath Gastrointestinal: Denies: Diarrhea, Nausea, Vomiting Genitourinary: Denies: Dysuria, Hematuria Endocrine: Denies: Heat/ Cold Intolerance, Polydipsia, Polyuria Hematologic/ Lymphatic: Denies: Easy Bruising, Easy Bleeding - Physical Exam Vital Signs Temp Pulse Resp BP 97.5 F L 98 18 158/89 H 02/19/19 08:10 02/19/19 08:10 02/19/19 08:10 02/19/19 08:10 General: Alert, Oriented x3, Cooperative, No apparent distress, Well developed, Well nourished HEENT: Atraumatic, PERRLA, EOMI, Normocephalic Oral: Moist Mucosa Neck: No JVD Lungs: Normal air movement Abdomen: Non-Distended Extremities: No clubbing, No cyanosis, No edema, No Calf Tenderness, - - A well-healed right above-knee amputation stump is noted. The ulceration in the right groin persists. Continues to diminish in size. Dimensions are documented elsewhere. There is no sign of infection or cellulitis. There is noted to be epithelialization both superiorly and inferiorly, with only the central portion of the ulceration remaining. There is a mild amount of bioburden. Wound Measurements and Assessment WC - Nurse 1 - General Ulcer Measurement Start: 02/19/19 08:10 Freq: Status: Active Protocol: Activity Type Activity Date Activity User E-Sign Co-Sign Detail Recorded Client Recorded Date Recorded By Document 02/19/19 08:10 DL [id number] 02/19/19 08:17 DL 02/19/19 08:10 Wound Center Nurse 1 [Ulcer Assessment] #5 R Groin -Current Size (cm) - Length 2.6 -Current Size (cm) - Width 0.3 -Current Size (cm) - Depth 0.3 -Total Square Cm 0.78 -Photo Taken No -Exudate Amt Small -Exudate Type Serosanguineous -Wound Margin Thickened -Granulation Amt Large (67-100%) -Granulation Quality [place] -Necrosis Amt Small (1-33%) -Necrotic Tissue Type Adherent Slough -Structure Exposed N/A -Texture (Blanche-wound Skin Appearance) Scarring -Moisture (Blanche-wound Skin Appearance No Abnormality ) -Color (Blanche-wound Skin Appearance) Rubor -Temperature (Blanche-wound Skin No Abnormality Appearance) (Pt Warm) -Tenderness on Palpation (Blanche-wound No Skin Appearance) -Ulcer Cleansing Rinsed/ Irrigated with Saline -Foul Odor after Cleansing No -Anesthetic Used 5% Lidocaine Gel WC - Nurse 2 - General Ulcer CM Notes Start: 02/19/19 08:10 Freq: Status: Active Protocol: Activity Type Activity Date Activity User E-Sign Co-Sign Detail Recorded Client Recorded Date Recorded By Document 02/19/19 09:03 DV [id number] 02/19/19 09:09 DV 02/19/19 09:03 Wound Center Nurse 2 [Procedure/Treatment] -Time 09:06 -Correct Patient Yes -Correct Side, Site, Position Yes -Correct Procedure Yes -Procedure Performed Yes -Type of Procedure Debridement -Clinical Debridement Subcutaneous -Post Debridement Size (cm) - Length 0.4 -Post Debridement Size (cm) - Width 0.3 -Post Debridement Size (cm) - Depth 0.5 -Total Square Cm 0.12 -Wound/Ulcer Outcome Not Healed -Ulcer Cleansing Rinsed/ Irrigated with Saline -Foul Odor after Cleansing No -Bioengineered Tissue No -Bleeding Controlled with Pressure -Offloading No -Treatment Response Procedure Tolerated Well [See Physician Procedure note for Specifics] Pain Scale: 0-10 Numeric [Pain] -Is Patient Pain Free? No Musculoskeletal: No Muscle Wasting Neurological: Cranial nerves II-XII grossly intact, Neuro grossly intact Psych/Mental Status: Normal Affect, Appropriate, Alert and oriented to time, place, person, mood and affect Debridement Note Post-Debridement Measurements/Treatment - Nurse 2 - General Ulcer CM Notes Start: 02/19/19 08:10 Freq: Status: Active Protocol: Activity Type Activity Date Activity User E-Sign Co-Sign Detail Recorded Client Recorded Date Recorded By Document 02/19/19 09:03 DV [id number] 02/19/19 09:09 DV 02/19/19 09:03 Wound Center Nurse 2 #5 R Groin -Time 09:06 -Correct Patient Yes -Correct Side, Site, Position Yes -Correct Procedure Yes -Procedure Performed Yes -Type of Procedure Debridement -Clinical Debridement Subcutaneous -Post Debridement Size (cm) - Length 0.4 -Post Debridement Size (cm) - Width 0.3 -Post Debridement Size (cm) - Depth 0.5 -Total Square Cm 0.12 -Wound/Ulcer Outcome Not Healed -Ulcer Cleansing Rinsed/ Irrigated with Saline -Foul Odor after Cleansing No -Bioengineered Tissue No -Bleeding Controlled with Pressure -Offloading No -Treatment Response Procedure Tolerated Well Pain Scale: 0-10 Numeric Is Patient Pain Free? 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 In the 1970's, she was diagnosed with malignant melanoma of the right calf, with metastasis to lymph nodes in the right groin. She underwent excision of the melanoma with right groin lymphadenectomy. She was subsequently treated with a long series of radiation treatments to the right groin. During the days of her radiation treatment, it is suspected that the radiation techniques were somewhat early in their evolution, and quite likely that the patient received massive doses of radiation exposure, exceeding doses which would be considered appropriate today, with techniques which are primitive by today's standards. As a result, the patient has developed soft tissue radiation injury, and has previously been treated at our wound center in the past with a series of approximately 90 hyperbaric oxygen therapy treatments, in 2011. She presented with recurrence of soft tissue radionecrosis in the right groin. Hyperbaric oxygen therapy treatments were initiated, and the patient has undergone a series of 90 additional hyperbaric oxygen treatment sessions. She has shown mild benefit from the hyperbaric oxygen treatments. At this time, there is no clinical evidence of infection or cellulitis in the blanche-ulcer area. However, the patient is responding very slowly to the variety of conventional treatment measures which have been implemented. In review of the patient's past history, each treatment course has been rather protracted in terms of healing. The patient was previously referred for consultation at [facility] (Dr. Harding), which had been arranged by our facility. Medical records related to the patient's visit at [facility] resulted in no significant new recommendations for treatment or management. The patient remains on a well-balanced diet. Given that little progress has been made in recent months, I have contacted and spoken by phone with the Automatic Equipment Technician of the [facility], Dr. Bassam Alas. Dr. Alas has been very helpful. He has conferred with his colleague, Plastic Surgeon Dr. Cassius Whitman. Dr. Whitman has indicated his willingness to evaluate the patient, and the patient has now been evaluated by Dr. Frausto recently. The patient was very impressed with her interaction with the plastic surgeon. A number of options were discussed. Dr. Frausto has proposed a rectus abdominis myocutaneous flap. As a prelude to flap reconstruction, the patient underwent a CT angiogram at [facility] on December 13, 2018. She met with Dr. Frausto later that same day. The patient relates that the nature of the surgical procedure, and the recovery phase, has been described in detail, and it is anticipated to be quite challenging and lengthy. It is anticipated that her surgical procedure will be scheduled at some point in the future, though the patient wishes to consider all options prior to making a firm commitment to surgical intervention. Until that occurs, the patient will follow-up in the Wound Center, and will return in 2 weeks for reassessment. Since the patient's last visit, she was met with the vascular surgeon at [facility], Dr. Ganga Tong. Once again, the patient has been left with the impression that any surgery to reconstruct the area in the right groin could be fraught with complications and a lengthy recovery. This has given the patient pause and reason for concern, and she is to continue considering all options. She is to be scheduled to see a Outer Diameter Grinder at [facility] in the near future. Plan: The patient has been the recipient of 10 EpiFix applications. A request for preauthorization of PuraPly was denied. A series of 90 hyperbaric oxygen therapy sessions have also been completed. Attempts at preauthorization of negative pressure wound therapy have also been denied. We have used a series of [place] allografts. For now, we are to continue the use of Mary topically. Requests for preauthorization of advanced therapies have been denied. The patient is to continue with a nutritious diet. Biopsies of the ulceration have been obtained, and the results were negative for malignancy. The patient is now to be co-managed by Plastic Surgeon, Dr. Cassius Whitman, at [facility], and a team of other medical providers at [facility]. It is anticipated that the patient may undergo a rectus abdominis myocutaneous flap reconstruction in the future, and is giving consideration to all aspects related to this option. She has been given understanding that the procedure is a big ordeal, and a lengthy recovery and rehabilitation will likely follow. She has seen a general surgeon at [facility] (Dr. Nunez), and vascular surgeon Dr. Ganga Tong. This multidisciplinary team of surgeons will determine the patient's candidacy for major myocutaneous flap reconstruction, and will be the team involved in performing the procedure if it is deemed that the patient is a suitable candidate. This will also depend upon the patient's decision to proceed with major surgical reconstruction. At this juncture, the patient is very equivocal about whether to proceed with the procedure, given its stated morbidities and lengthy recovery process. The patient is to return in 2 weeks for reassessment. Influenza vaccine was not administered today. The patient is not a smoker. She stands 5 feet 7 inches tall. She weighs 198 pounds. Her BMI is 31, which places her in a class I weight category. Weight loss has been recommended. She is to collaborate with her primary care physician in this regard.
[2019-03-05 08:41] VITALS: BP 143/84; PULSE 87; RESP 16; TEMP 36.9; BMI 68.3
--- NOTE | 2019-03-05 09:06 | HP.PCM_ITS ---
(1) History of uterine cancer Status: Chronic Current Visit: No Code(s): Z85.42 - Personal history of malignant neoplasm of other parts of uterus (2) History of melanoma Status: Chronic Current Visit: Yes Code(s): Z85.820 - Personal history of malignant melanoma of skin (3) Hyperlipidemia Status: Chronic Current Visit: No Code(s): E78.5 - Hyperlipidemia, unspecified (4) GERD (gastroesophageal reflux disease) Status: Chronic Current Visit: No Code(s): K21.9 - Gastro-esophageal reflux disease without esophagitis (5) Ulcer of right groin Status: Chronic Current Visit: Yes Qualifiers: Non-pressure ulcer stage: with fat layer exposed Code(s): L98.499 - Non-pressure chronic ulcer of skin of other sites with unspecified severity (6) Obesity (BMI 30.0-34.9) Status: Chronic Current Visit: No Code(s): E66.9 - Obesity, unspecified (7) Amputee, above knee Status: Chronic Current Visit: Yes Qualifiers: Laterality: right Code(s): Z89.619 - Acquired absence of unspecified leg above knee (8) Soft tissue radionecrosis Status: Chronic Current Visit: Yes Code(s): L59.8 - Other specified disorders of the skin and subcutaneous tissue related to radiation; Y84.2 - Radiological procedure and radiotherapy as the cause of abnormal reaction of the patient, or of later complication, without mention of misadventure at the time of the procedure (9) soft tissue radiation injury Status: Chronic Current Visit: Yes History of Present Illness Date of Service: 03/05/19 Chief Complaint: 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 The patient underwent excision of her melanoma with lymphadenectomy in the right groin. She also underwent lengthy radiation treatments at the [facility] in [place], [place]. Melanoma recurred, and the patient was subsequently treated with monoclonal antibodies in 1984. 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 Treatment included local ulcer care and hyperbaric oxygen therapy. She underwent a total of nearly 90 treatments of hyperbaric oxygen therapy. It is known that she tolerated the therapies well, and derived significant benefit. She relates no history of claustrophobia, or other complications related to the hyperbaric oxygen therapy treatments. She has no history of barotrauma to lungs, ears, etc. Her medical history reveals no evidence of contraindications to hyperbaric oxygen therapy. The patient's current course of management includes a total of 90 sessions of hyperbaric oxygen therapy, which have been completed without total healing of the patient's right groin ulceration. EpiFix allografts have also been used for a series of 10 applications, without total healing. It appears as though the patient's current clinical course is mimicking that of the past, with wound healing which is very recalcitrant to conventional, conservative treatment measures. 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 She has undergone excision of melanoma from the right calf, with lymphadenectomy of the right groin in the 1969's. She subsequently required surgeries of the right thigh related to osteomyelitis, MRSA infection, and radiation injury to the right femoral artery. Ultimately, the patient required right above-knee amputation, performed in 2000. She also has a remote history of open reduction and internal fixation of a right ankle fracture. Allergies/Adverse Reactions: Allergies No Known Allergies Allergy (Verified 06/20/17 09:22) Home Medications: Ambulatory Orders Medication Instructions Recorded Famotidine 20 mg PO 06/20/17 Pravastatin [Pravachol] 20 mg PO DAILY 06/20/17 - Family History Maternal - - The patient's mother is 98 years of age and relatively healthy. The patient's father at age of 79 with a history of cardiomyopathy. Smoking Status: Former smoker Tobacco Use: Non-smoker Review of Systems Constitutional: Denies: Chills, Fever, Weight Change Eyes: Denies: Pain, Vision Change HEENT: Denies: Difficulty Hearing, Difficulty Swallowing, Sinus Congestion Cardiovascular: Denies: Chest Pain, Palpitations Respiratory: Denies: Cough, Shortness of Breath Gastrointestinal: Denies: Diarrhea, Nausea, Vomiting Genitourinary: Denies: Dysuria, Hematuria Endocrine: Denies: Heat/ Cold Intolerance, Polydipsia, Polyuria Hematologic/ Lymphatic: Denies: Easy Bruising, Easy Bleeding - Physical Exam Vital Signs Temp Pulse Resp BP 98.4 F 87 16 143/84 H 03/05/19 08:41 03/05/19 08:41 03/05/19 08:41 03/05/19 08:41 General: Alert, Oriented x3, Cooperative, No apparent distress, Well developed, Well nourished HEENT: Atraumatic, PERRLA, EOMI, Normocephalic Oral: Moist Mucosa Neck: No JVD Lungs: Normal air movement Abdomen: Non-Distended Extremities: No clubbing, No cyanosis, No edema, No Calf Tenderness, - - A well- healed right above-knee amputation stump is noted. The ulceration in the right groin is relatively unchanged. It appears to be slightly smaller in size. Dimensions are documented elsewhere. There is a small amount of bioburden. There is no sign of infection or cellulitis. Skin: No rashes Wound Measurements and Assessment WC - Nurse 1 - General Ulcer Measurement Start: 02/19/19 08:10 Freq: Status: Active Protocol: Activity Type Activity Date Activity User E-Sign Co-Sign Detail Recorded Client Recorded Date Recorded By Document 03/05/19 08:41 MW [id number] 03/05/19 08:46 MW 03/05/19 08:41 Wound Center Nurse 1 [Ulcer Assessment] #5 R Groin -Combined with other wound No -Current Size (cm) - Length 1.5 -Current Size (cm) - Width 0.4 -Current Size (cm) - Depth 0.1 -Total Square Cm 0.60 -Photo Taken No -Epithelialization None Present -Tunneling No -Undermining/Tunneling No -Circular Undermining No -Exudate Amt Small -Exudate Type Serous -Wound Margin Thickened -Granulation Amt None Present (0 %) -Granulation Quality N/A -Slough/Fibrin Yes -Necrosis Amt Large (67-100%) -Necrotic Tissue Type Adherent Slough -Structure Exposed N/A -Texture (Blanche-wound Skin Appearance) Assessed, Scarring -Moisture (Blanche-wound Skin Appearance No Abnormality, ) Assessed -Color (Blanche-wound Skin Appearance) No Abnormality, Assessed -Temperature (Blanche-wound Skin No Abnormality Appearance) (Pt Warm) -Tenderness on Palpation (Blanche-wound No Skin Appearance) -Ulcer Cleansing Rinsed/ Irrigated with Saline -Foul Odor after Cleansing No -Anesthetic Used 5% Lidocaine Gel [Edema Assessment] -Lower Limb Edema Present No Musculoskeletal: No Muscle Wasting Neurological: Cranial nerves II-XII grossly intact, Neuro grossly intact Psych/Mental Status: Normal Affect, Appropriate, Alert and oriented to time, place, person, mood and affect Debridement Note Post-Debridement Measurements/Treatment WC - Nurse 2 - General Ulcer CM Notes Start: 02/19/19 08:10 Freq: Status: Active Protocol: Activity Type Activity Date Activity User E-Sign Co-Sign Detail Recorded Client Recorded Date Recorded By Document 02/19/19 09:03 DV [id number] 02/19/19 09:09 DV 02/19/19 09:03 Wound Center Nurse 2 #5 R Groin -Time 09:06 -Correct Patient Yes -Correct Side, Site, Position Yes -Correct Procedure Yes -Procedure Performed Yes -Type of Procedure Debridement -Clinical Debridement Subcutaneous -Post Debridement Size (cm) - Length 0.4 -Post Debridement Size (cm) - Width 0.3 -Post Debridement Size (cm) - Depth 0.5 -Total Square Cm 0.12 -Wound/Ulcer Outcome Not Healed -Ulcer Cleansing Rinsed/ Irrigated with Saline -Foul Odor after Cleansing No -Bioengineered Tissue No -Bleeding Controlled with Pressure -Offloading No -Treatment Response Procedure Tolerated Well Pain Scale: 0-10 Numeric Is Patient Pain Free? 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 In the 1970's, she was diagnosed with malignant melanoma of the right calf, with metastasis to lymph nodes in the right groin. She underwent excision of the melanoma with right groin lymphadenectomy. She was subsequently treated with a long series of radiation treatments to the right groin. During the days of her radiation treatment, it is suspected that the radiation techniques were somewhat early in their evol ution, and quite likely that the patient received massive doses of radiation exposure, exceeding doses which would be considered appropriate today, with techniques which are primitive by today's standards. As a result, the patient has developed soft tissue radiation injury, and has previously been treated at our wound center in the past with a series of approximately 90 hyperbaric oxygen therapy treatments, in 2011. She presented with recurrence of soft tissue radionecrosis in the right groin. Hyperbaric oxygen therapy treatments were initiated, and the patient has undergone a series of 90 additional hyperbaric oxygen treatment sessions. She has shown mild benefit from the hyperbaric oxygen treatments. At this time, there is no clinical evidence of infection or cellulitis in the blanche-ulcer area. However, the patient is responding very slowly to the variety of conventional treatment measures which have been implemented. In review of the patient's past history, each treatment course has been rather protracted in terms of healing. The patient was previously referred for consultation at [facility] (Dr. Harding), which had been arranged by our facility. Medical records related to the patient's visit at [facility] resulted in no significant new recommendations for treatment or management. The patient remains on a well- balanced diet. Given that little progress has been made in recent months, I have contacted and spoken by phone with the Used Car Make Ready Mechanic of the [facility], Dr. Bassam Alas. Dr. Alas has been very helpful. He has conferred with his colleague, Plastic Surgeon Dr. Cassius Whitman. Dr. Whitman has indicated his willingness to evaluate the patient, and the patient has now been evaluated by Dr. Frausto recently. The patient was very impressed with her interaction with the plastic surgeon. A number of options were discussed. Dr. Frausto has proposed a rectus abdominis myocutaneous flap. As a prelude to flap reconstruction, the patient underwent a CT angiogram at [facility] on December 13, 2018. She met with Dr. Frausto later that same day. The patient relates that the nature of the surgical procedure, and the recovery phase, has been described in detail, and it is anticipated to be quite challenging and lengthy. It is anticipated that her surgical procedure will be scheduled at some point in the future, though the patient wishes to consider all options prior to making a firm commitment to surgical intervention. Until that occurs, the patient will follow-up in the Wound Center, and will return in 2 weeks for reassessment. Since the patient's last visit, she was met with the vascular surgeon at [facility], Dr. Ganga Tong. Once again, the patient has been left with the impression that any surgery to reconstruct the area in the right groin could be fraught with complications and a lengthy recovery. This has given the patient pause and reason for concern, and she is to continue considering all options. She is to be scheduled to see a Family Service Worker at [facility] in the near future. Plan: The patient has been the recipient of 10 EpiFix applications. A request for preauthorization of PuraPly was denied. A series of 90 hyperbaric oxygen therapy sessions have also been completed. Attempts at preauthorization of negative pressure wound therapy have also been denied. We have used a series of [place] allografts. For now, we are to continue the use of Mary topically. Requests for preauthorization of advanced therapies have been denied. The patient is to continue with a nutritious diet. Biopsies of the ulceration have been obtained, and the results were negative for malignancy. The patient is now to be co-managed by Plastic Surgeon, Dr. Cassius Whitman, at [facility], and a team of other medical providers at [facility]. It is anticipated that the patient may undergo a rectus abdominis myocutaneous flap reconstruction in the future, and is giving consideration to all aspects related to this option. She has been given understanding that the procedure is a big ordeal, and a lengthy recovery and rehabilitation will likely follow. She has seen a general surgeon at [facility] (Dr. Nunez), and vascular surgeon Dr. Ganga Tong. This multidisciplinary team of surgeons will determine the patient's candidacy for major myocutaneous flap reconstruction, and will be the team involved in performing the procedure if it is deemed that the patient is a suitable candidate. This will also depend upon the patient's decision to proceed with major surgical reconstruction. At this juncture, the patient is very equivocal about whether to proceed with the procedure, given its stated morbidities and lengthy recovery process. The patient is to return in 2 weeks for reassessment. Influenza vaccine was not a dministered today. The patient is not a smoker. She stands 5 feet 7 inches tall. She weighs 198 pounds. Her BMI is 31, which places her in a class I weight category. Weight loss has been recommended. She is to collaborate with her primary care physician in this regard.
== END 2019-03-09 23:59 ==
LOC: WC 08:30
PROVIDERS: Family Provider Family Medicine; PCP Family Medicine; Referring Provider Surgery; Visit Provider Surgery
DX: L59.8 Other specified disorders of the skin and subcutaneous tissue related to radiation (principal); Z85.820 Personal history of malignant melanoma of skin; Z85.42 Personal history of malignant neoplasm of other parts of uterus; E78.5 Hyperlipidemia, unspecified; K21.9 Gastro-esophageal reflux disease without esophagitis; E66.9 Obesity, unspecified; Z68.31 Body mass index [BMI] 31.0-31.9, adult; Z71.3 Dietary counseling and surveillance; Z89.611 Acquired absence of right leg above knee; L98.492 Non-pressure chronic ulcer of skin of other sites with fat layer exposed; Z87.891 Personal history of nicotine dependence; Y84.2 Radiological procedure and radiotherapy as the cause of abnormal reaction of the patient, or of later complication, without mention of misadventure at the time of the procedure
CPT/HCPCS: 11042

== ENCOUNTER 2019-04-02 08:30 | Outpatient (RCR) | payer OTHER, SELFPAY ==
[2019-03-10 00:29] VITALS: BP 143/84; PULSE 87; RESP 16; TEMP 36.9
[2019-03-19 08:55] VITALS: BP 150/91; PULSE 86; RESP 18; TEMP 36.7; BMI 68.3
--- NOTE | 2019-03-19 09:27 | PCM.WC.HP ---
(1) History of uterine cancer Status: Chronic Current Visit: No Code(s): Z85.42 - Personal history of malignant neoplasm of other parts of uterus (2) History of melanoma Status: Chronic Current Visit: Yes Code(s): Z85.820 - Personal history of malignant melanoma of skin (3) Hyperlipidemia Status: Chronic Current Visit: No Code(s): E78.5 - Hyperlipidemia, unspecified (4) GERD (gastroesophageal reflux disease) Status: Chronic Current Visit: No Code(s): K21.9 - Gastro-esophageal reflux disease without esophagitis (5) Ulcer of right groin Status: Chronic Current Visit: Yes Qualifiers: Non-pressure ulcer stage: with fat layer exposed Code(s): L98.499 - Non-pressure chronic ulcer of skin of other sites with unspecified severity (6) Obesity (BMI 30.0-34.9) Status: Chronic Current Visit: No Code(s): E66.9 - Obesity, unspecified (7) Amputee, above knee Status: Chronic Current Visit: Yes Qualifiers: Laterality: right Code(s): Z89.619 - Acquired absence of unspecified leg above knee (8) Soft tissue radionecrosis Status: Chronic Current Visit: Yes Code(s): L59.8 - Other specified disorders of the skin and subcutaneous tissue related to radiation; Y84.2 - Radiological procedure and radiotherapy as the cause of abnormal reaction of the patient, or of later complication, without mention of misadventure at the time of the procedure (9) soft tissue radiation injury Status: Chronic Current Visit: Yes History of Present Illness Date of Service: 03/19/19 Chief Complaint: 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 The patient underwent excision of her melanoma with lymphadenectomy in the right groin. She also underwent lengthy radiation treatments at the [facility] in [place], [place]. Melanoma recurred, and the patient was subsequently treated with monoclonal antibodies in 1984. 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 Treatment included local ulcer care and hyperbaric oxygen therapy. She underwent a total of nearly 90 treatments of hyperbaric oxygen therapy. It is known that she tolerated the therapies well, and derived significant benefit. She relates no history of claustrophobia, or other complications related to the hyperbaric oxygen therapy treatments. She has no history of barotrauma to lungs, ears, etc. Her medical history reveals no evidence of contraindications to hyperbaric oxygen therapy. The patient's current course of management includes a total of 90 sessions of hyperbaric oxygen therapy, which have been completed without total healing of the patient's right groin ulceration. EpiFix allografts have also been used for a series of 10 applications, without total healing. It appears as though the patient's current clinical course is mimicking that of the past, with wound healing which is very recalcitrant to conventional, conservative treatment measures. 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 She has undergone excision of melanoma from the right calf, with lymphadenectomy of the right groin in the 1969's. She subsequently required surgeries of the right thigh related to osteomyelitis, MRSA infection, and radiation injury to the right femoral artery. Ultimately, the patient required right above-knee amputation, performed in 2000. She also has a remote history of open reduction and internal fixation of a right ankle fracture. Allergies/Adverse Reactions: Allergies No Known Allergies Allergy (Verified 06/20/17 09:22) Home Medications: Ambulatory Orders Medication Instructions Recorded Famotidine 20 mg PO 06/20/17 Pravastatin [Pravachol] 20 mg PO DAILY 06/20/17 - Family History Maternal - - The patient's mother is 98 years of age and relatively healthy. The patient's father at age of 79 with a history of cardiomyopathy. Smoking Status: Former smoker Tobacco Use: Non-smoker Review of Systems Constitutional: Denies: Chills, Fever, Weight Change Eyes: Denies: Pain, Vision Change HEENT: Denies: Difficulty Hearing, Difficulty Swallowing, Sinus Congestion Cardiovascular: Denies: Chest Pain, Palpitations Respiratory: Denies: Cough, Shortness of Breath Gastrointestinal: Denies: Diarrhea, Nausea, Vomiting Genitourinary: Denies: Dysuria, Hematuria Endocrine: Denies: Heat/ Cold Intolerance, Polydipsia, Polyuria Hematologic/ Lymphatic: Denies: Easy Bruising, Easy Bleeding - Physical Exam Vital Signs Temp Pulse Resp BP 98.0 F 86 18 150/91 H 03/19/19 08:55 03/19/19 08:55 03/19/19 08:55 03/19/19 08:55 General: Alert, Oriented x3, Cooperative, No apparent distress, Well developed, Well nourished HEENT: Atraumatic, PERRLA, EOMI, Normocephalic Oral: Moist Mucosa Neck: No JVD Lungs: Normal air movement Abdomen: Non-Distended Extremities: No clubbing, No cyanosis, No edema, No Calf Tenderness, - - Well-healed right above-knee amputation stump is noted. The ulceration in the right groin is little changed in size or appearance. There is a small amount of bioburden. There is no sign of infection or cellulitis. Dimensions are documented elsewhere. Skin: No rashes Wound Measurements and Assessment WC - Nurse 1 - General Ulcer Measurement Start: 03/19/19 08:55 Freq: Status: Active Protocol: Activity Type Activity Date Activity User E-Sign Co-Sign Detail Recorded Client Recorded Date Recorded By Document 03/19/19 08:55 [id number] 03/19/19 09:02 MW 03/19/19 08:55 Wound Center Nurse 1 [Ulcer Assessment] #5 R Groin -Combined with other wound No -Current Size (cm) - Length 0.7 -Current Size (cm) - Width 0.4 -Current Size (cm) - Depth 0.4 -Total Square Cm 0.28 -Photo Taken No -Epithelialization None Present -Tunneling No -Undermining/Tunneling No -Circular Undermining No -Exudate Amt Small -Exudate Type Serous -Wound Margin Thickened -Granulation Amt None Present (0 %) -Granulation Quality N/A -Slough/Fibrin Yes -Necrosis Amt Small (1-33%) -Necrotic Tissue Type Adherent Slough -Structure Exposed N/A -Texture (Blanche-wound Skin Appearance) Assessed, Scarring -Moisture (Blanche-wound Skin Appearance No Abnormality, ) Assessed -Color (Blanche-wound Skin Appearance) Assessed,Rubor -Temperature (Blanche-wound Skin No Abnormality Appearance) (Pt Warm) -Tenderness on Palpation (Blanche-wound Yes Skin Appearance) -Ulcer Cleansing Rinsed/ Irrigated with Saline -Foul Odor after Cleansing No -Anesthetic Used 5% Lidocaine Gel [Edema Assessment] -Lower Limb Edema Present No - Nurse 2 - General Ulcer CM Notes Start: 03/19/19 08:55 Freq: Status: Active Protocol: Activity Type Activity Date Activity User E-Sign Co-Sign Detail Recorded Client Recorded Date Recorded By Document 03/19/19 09:20 [id number] 03/19/19 09:25 03/19/19 09:20 Wound Center Nurse 2 [Procedure/Treatment] #5 R Groin -Time 09:21 -Correct Patient Yes -Correct Side, Site, Position Yes -Correct Procedure Yes -Procedure Performed Yes -Type of Procedure Debridement -Clinical Debridement Subcutaneous -Post Debridement Size (cm) - Length 3.2 -Post Debridement Size (cm) - Width 0.5 -Post Debridement Size (cm) - Depth 0.4 -Total Square Cm 1.60 -Wound/Ulcer Outcome Not Healed -Ulcer Cleansing Rinsed/ Irrigated with Saline -Foul Odor after Cleansing No -Bioengineered Tissue No -Bleeding Controlled with Pressure -Offloading No -Treatment Response Procedure Tolerated Well [See Physician Procedure note for Specifics] Pain Scale: 0-10 Numeric [Pain] -Is Patient Pain Free? Yes Musculoskeletal: No Muscle Wasting Neurological: Cranial nerves II-XII grossly intact, Neuro grossly intact Psych/Mental Status: Normal Affect, Appropriate, Alert and oriented to time, place, person, mood and affect Debridement Note Post-Debridement Measurements/Treatment - Nurse 2 - General Ulcer CM Notes Start: 03/19/19 08:55 Freq: Status: Active Protocol: Activity Type Activity Date Activity User E-Sign Co-Sign Detail Recorded Client Recorded Date Recorded By Document 03/19/19 09:20 [id number] 03/19/19 09:25 09/10/19 09:20 Wound Center Nurse 2 #5 R Groin -Time 09:21 -Correct Patient Yes -Correct Side, Site, Position Yes -Correct Procedure Yes -Procedure Performed Yes -Type of Procedure Debridement -Clinical Debridement Subcutaneous -Post Debridement Size (cm) - Length 3.2 -Post Debridement Size (cm) - Width 0.5 -Post Debridement Size (cm) - Depth 0.4 -Total Square Cm 1.60 -Wound/Ulcer Outcome Not Healed -Ulcer Cleansing Rinsed/ Irrigated with Saline -Foul Odor after Cleansing No -Bioengineered Tissue No -Bleeding Controlled with Pressure -Offloading No -Treatment Response Procedure Tolerated Well Pain Scale: 0-10 Numeric Is Patient Pain Free? 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 In the 1970's, she was diagnosed with malignant melanoma of the right calf, with metastasis to lymph nodes in the right groin. She underwent excision of the melanoma with right groin lymphadenectomy. She was subsequently treated with a long series of radiation treatments to the right groin. During the days of her radiation treatment, it is suspected that the radiation techniques were somewhat early in their evolution, and quite likely that the patient received massive doses of radiation exposure, exceeding doses which would be considered appropriate today, with techniques which are primitive by today's standards. As a result, the patient has developed soft tissue radiation injury, and has previously been treated at our wound center in the past with a series of approximately 90 hyperbaric oxygen therapy treatments, in 2011. She presented with recurrence of soft tissue radionecrosis in the right groin. Hyperbaric oxygen therapy treatments were initiated, and the patient has undergone a series of 90 additional hyperbaric oxygen treatment sessions. She has shown mild benefit from the hyperbaric oxygen treatments. At this time, there is no clinical evidence of infection or cellulitis in the blanche-ulcer area. However, the patient is responding very slowly to the variety of conventional treatment measures which have been implemented. In review of the patient's past history, each treatment course has been rather protracted in terms of healing. The patient was previously referred for consultation at [facility] (Dr. Harding), which had been arranged by our facility. Medical records related to the patient's visit at [facility] resulted in no significant new recommendations for treatment or management. The patient remains on a well-balanced diet. Given that little progress has been made in recent months, I have contacted and spoken by phone with the Mold Injector of the [facility], Dr. Bassam Alas. Dr. Alas has been very helpful. He has conferred with his colleague, Plastic Surgeon Dr. Cassius Whitman. Dr. Whitman has indicated his willingness to evaluate the patient, and the patient has now been evaluated by Dr. Frausto recently. The patient was very impressed with her interaction with the plastic surgeon. A number of options were discussed. Dr. Frausto has proposed a rectus abdominis myocutaneous flap. As a prelude to flap reconstruction, the patient underwent a CT angiogram at [facility] on December 13, 2018. She met with Dr. Frausto later that same day. The patient relates that the nature of the surgical procedure, and the recovery phase, has been described in detail, and it is anticipated to be quite challenging and lengthy. It is anticipated that her surgical procedure will be scheduled at some point in the future, though the patient wishes to consider all options prior to making a firm commitment to surgical intervention. Until that occurs, the patient will follow-up in the Wound Center, and will return in 2 weeks for reassessment. Since the patient's last visit, she was met with the vascular surgeon at [facility], Dr. Ganga Tong. Once again, the patient has been left with the impression that any surgery to reconstruct the area in the right groin could be fraught with complications and a lengthy recovery. This has given the patient pause and reason for concern, and she is to continue considering all options. She is to be scheduled to see a Personal Protection Specialist at [facility] in the near future. Plan: The patient has been the recipient of 10 EpiFix applications. A request for preauthorization of PuraPly was denied. A series of 90 hyperbaric oxygen therapy sessions have also been completed. Attempts at preauthorization of negative pressure wound therapy have also been denied. We have used a series of [place] allografts. For now, we are to continue the use of Mary topically. Requests for preauthorization of advanced therapies have been denied. The patient is to continue with a nutritious diet. Biopsies of the ulceration have been obtained, and the results were negative for malignancy. The patient is now to be co-managed by Plastic Surgeon, Dr. Cassius Whitman, at [facility], and a team of other medical providers at [facility]. It is anticipated that the patient may undergo a rectus abdominis myocutaneous flap reconstruction in the future, and is giving consideration to all aspects related to this option. She has been given understanding that the procedure is a big ordeal, and a lengthy recovery and rehabilitation will likely follow. She has seen a general surgeon at [facility] (Dr. Nunez), and vascular surgeon Dr. Ganga Tong. This multidisciplinary team of surgeons will determine the patient's candidacy for major myocutaneous flap reconstruction, and will be the team involved in performing the procedure if it is deemed that the patient is a suitable candidate. This will also depend upon the patient's decision to proceed with major surgical reconstruction. At this juncture, the patient is very equivocal about whether to proceed with the procedure, given its stated morbidities and lengthy recovery process. The patient is to return in 2 weeks for reassessment. Influenza vaccine was not administered today. The patient is not a smoker. She stands 5 feet 7 inches tall. She weighs 198 pounds. Her BMI is 31, which places her in a class I weight category. Weight loss has been recommended. She is to collaborate with her primary care physician in this regard.
[2019-04-02 08:38] VITALS: BP 164/97; PULSE 89; RESP 18; TEMP 35.9; BMI 68.3
--- NOTE | 2019-04-02 09:03 | PCM.WC.HP ---
(1) History of uterine cancer Status: Chronic Current Visit: No Code(s): Z85.42 - Personal history of malignant neoplasm of other parts of uterus (2) History of melanoma Status: Chronic Current Visit: Yes Code(s): Z85.820 - Personal history of malignant melanoma of skin (3) Hyperlipidemia Status: Chronic Current Visit: No Code(s): E78.5 - Hyperlipidemia, unspecified (4) GERD (gastroesophageal reflux disease) Status: Chronic Current Visit: No Code(s): K21.9 - Gastro-esophageal reflux disease without esophagitis (5) Ulcer of right groin Status: Chronic Current Visit: Yes Qualifiers: Non-pressure ulcer stage: with fat layer exposed Code(s): L98.499 - Non-pressure chronic ulcer of skin of other sites with unspecified severity (6) Obesity (BMI 30.0-34.9) Status: Chronic Current Visit: No Code(s): E66.9 - Obesity, unspecified (7) Amputee, above knee Status: Chronic Current Visit: Yes Qualifiers: Laterality: right Code(s): Z89.619 - Acquired absence of unspecified leg above knee (8) Soft tissue radionecrosis Status: Chronic Current Visit: Yes Code(s): L59.8 - Other specified disorders of the skin and subcutaneous tissue related to radiation; Y84.2 - Radiological procedure and radiotherapy as the cause of abnormal reaction of the patient, or of later complication, without mention of misadventure at the time of the procedure (9) soft tissue radiation injury Status: Chronic Current Visit: Yes History of Present Illness Date of Service: 04/02/19 Chief Complaint: 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 The patient underwent excision of her melanoma with lymphadenectomy in the right groin. She also underwent lengthy radiation treatments at the [facility] in [place], [place]. Melanoma recurred, and the patient was subsequently treated with monoclonal antibodies in 1984. 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 Treatment included local ulcer care and hyperbaric oxygen therapy. She underwent a total of nearly 90 treatments of hyperbaric oxygen therapy. It is known that she tolerated the therapies well, and derived significant benefit. She relates no history of claustrophobia, or other complications related to the hyperbaric oxygen therapy treatments. She has no history of barotrauma to lungs, ears, etc. Her medical history reveals no evidence of contraindications to hyperbaric oxygen therapy. The patient's current course of management includes a total of 90 sessions of hyperbaric oxygen therapy, which have been completed without total healing of the patient's right groin ulceration. EpiFix allografts have also been used for a series of 10 applications, without total healing. It appears as though the patient's current clinical course is mimicking that of the past, with wound healing which is very recalcitrant to conventional, conservative treatment measures. 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 She has undergone excision of melanoma from the right calf, with lymphadenectomy of the right groin in the 1969's. She subsequently required surgeries of the right thigh related to osteomyelitis, MRSA infection, and radiation injury to the right femoral artery. Ultimately, the patient required right above-knee amputation, performed in 2000. She also has a remote history of open reduction and internal fixation of a right ankle fracture. Allergies/Adverse Reactions: Allergies No Known Allergies Allergy (Verified 06/20/17 09:22) Home Medications: Ambulatory Orders Medication Instructions Recorded Famotidine 20 mg PO 06/20/17 Pravastatin [Pravachol] 20 mg PO DAILY 06/20/17 - Family History Maternal - - The patient's mother is 98 years of age and relatively healthy. The patient's father at age of 79 with a history of cardiomyopathy. Smoking Status: Former smoker Tobacco Use: Non-smoker Review of Systems Constitutional: Denies: Chills, Fever, Weight Change Eyes: Denies: Pain, Vision Change HEENT: Denies: Difficulty Hearing, Difficulty Swallowing, Sinus Congestion Cardiovascular: Denies: Chest Pain, Palpitations Respiratory: Denies: Cough, Shortness of Breath Gastrointestinal: Denies: Diarrhea, Nausea, Vomiting Genitourinary: Denies: Dysuria, Hematuria Endocrine: Denies: Heat/ Cold Intolerance, Polydipsia, Polyuria Hematologic/ Lymphatic: Denies: Easy Bruising, Easy Bleeding - Physical Exam Vital Signs Temp Pulse Resp BP 96.6 F L 89 18 164/97 H 04/02/19 08:38 04/02/19 08:38 04/02/19 08:38 04/02/19 08:38 General: Alert, Oriented x3, Cooperative, No apparent distress, Well developed, Well nourished HEENT: Atraumatic, PERRLA, EOMI, Normocephalic Oral: Moist Mucosa Neck: No JVD Lungs: Normal air movement Abdomen: Non-Distended Extremities: No clubbing, No cyanosis, No edema, No Calf Tenderness, - - A well-healed right above-knee amputation stump is noted. The ulceration in the right groin is little changed in size or appearance. Visually, it appears somewhat smaller. Dimensions are documented elsewhere. There is no sign of infection or cellulitis. There is a small amount of bioburden. Skin: No rashes Wound Measurements and Assessment WC - Nurse 1 - General Ulcer Measurement Start: 03/19/19 08:55 Freq: Status: Active Protocol: Activity Type Activity Date Activity User E-Sign Co-Sign Detail Recorded Client Recorded Date Recorded By Document 04/02/19 08:38 MW [id number] 04/02/19 08:50 MW 04/02/19 08:38 Wound Center Nurse 1 [Ulcer Assessment] #5 R Groin -Combined with other wound No -Current Size (cm) - Length 3.0 -Current Size (cm) - Width 0.5 -Current Size (cm) - Depth 0.4 -Total Square Cm 1.50 -Date of Last Picture (Recall this 04/02/19 field) -Photo Taken Yes -Epithelialization None Present -Tunneling No -Undermining/Tunneling No -Circular Undermining No -Wound Margin Flat & Intact -Granulation Amt Small (1-33%) -Granulation Quality Pale -Slough/Fibrin Yes -Necrosis Amt Medium (34-66%) -Necrotic Tissue Type Adherent Slough -Structure Exposed N/A -Texture (Blanche-wound Skin Appearance) Assessed, Scarring -Moisture (Blanche-wound Skin Appearance No Abnormality, ) Assessed -Color (Blanche-wound Skin Appearance) No Abnormality, Assessed -Temperature (Blanche-wound Skin No Abnormality Appearance) (Pt Warm) -Tenderness on Palpation (Blanche-wound No Skin Appearance) -Ulcer Cleansing Rinsed/ Irrigated with Saline -Foul Odor after Cleansing No -Anesthetic Used 5% Lidocaine Gel [Edema Assessment] -Lower Limb Edema Present No Musculoskeletal: No Muscle Wasting Neurological: Cranial nerves II-XII grossly intact, Neuro grossly intact Psych/Mental Status: Normal Affect, Appropriate, Alert and oriented to time, place, person, mood and affect Debridement Note Post-Debridement Measurements/Treatment WC - Nurse 2 - General Ulcer CM Notes Start: 03/19/19 08:55 Freq: Status: Active Protocol: Activity Type Activity Date Activity User E-Sign Co-Sign Detail Recorded Client Recorded Date Recorded By Document 03/19/19 09:20 [id number] 03/19/19 09:25 HARDIK 03/19/19 09:20 Wound Center Nurse 2 #5 R Groin -Time 09:21 -Correct Patient Yes -Correct Side, Site, Position Yes -Correct Procedure Yes -Procedure Performed Yes -Type of Procedure Debridement -Clinical Debridement Subcutaneous -Post Debridement Size (cm) - Length 3.2 -Post Debridement Size (cm) - Width 0.5 -Post Debridement Size (cm) - Depth 0.4 -Total Square Cm 1.60 -Wound/Ulcer Outcome Not Healed -Ulcer Cleansing Rinsed/ Irrigated with Saline -Foul Odor after Cleansing No -Bioengineered Tissue No -Bleeding Controlled with Pressure -Offloading No -Treatment Response Procedure Tolerated Well Pain Scale: 0-10 Numeric Is Patient Pain Free? Yes Laterality: Right - Groin Type of Debridement: Excisional debridement Anesthesia Used: 5% Lidocaine Gel Depth: Down to and including healthy tissue, in the subcutaneous layer Percentage of wound debrided: 100 Instrument Used: 7mm curette Tissue Removed: Bioburden and nonviable tissue Severity: Fat Layer Exposed Amount of bleeding with debridement: Mild Bleeding Controlled with: Compression and gauze Patient tolerated procedure well Assessment/Plan Active Problems History of melanoma (Chronic) Ulcer of right groin (Chronic) Amputee, above knee (Chronic) 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 In the 1970's, she was diagnosed with malignant melanoma of the right calf, with metastasis to lymph nodes in the right groin. She underwent excision of the melanoma with right groin lymphadenectomy. She was subsequently treated with a long series of radiation treatments to the right groin. During the days of her radiation treatment, it is suspected that the radiation techniques were somewhat early in their evolution, and quite likely that the patient received massive doses of radiation exposure, exceeding doses which would be considered appropriate today, with techniques which are primitive by today's standards. As a result, the patient has developed soft tissue radiation injury, and has previously been treated at our wound center in the past with a series of approximately 90 hyperbaric oxygen therapy treatments, in 2011. She presented with recurrence of soft tissue radionecrosis in the right groin. Hyperbaric oxygen therapy treatments were initiated, and the patient has undergone a series of 90 additional hyperbaric oxygen treatment sessions. She has shown mild benefit from the hyperbaric oxygen treatments. At this time, there is no clinical evidence of infection or cellulitis in the blanche-ulcer area. However, the patient is responding very slowly to the variety of conventional treatment measures which have been implemented. In review of the patient's past history, each treatment course has been rather protracted in terms of healing. The patient was previously referred for consultation at [facility] (Dr. Harding), which had been arranged by our facility. Medical records related to the patient's visit at [facility] resulted in no significant new recommendations for treatment or management. The patient remains on a well-balanced diet. Given that little progress has been made in recent months, I have contacted and spoken by phone with the Environmental Services Director of the [facility], Dr. Bassam Alas. Dr. Alas has been very helpful. He has conferred with his colleague, Plastic Surgeon Dr. Cassius Whitman. Dr. Whitman has indicated his willingness to evaluate the patient, and the patient has now been evaluated by Dr. Frausto recently. The patient was very impressed with her interaction with the plastic surgeon. A number of options were discussed. Dr. Frausto has proposed a rectus abdominis myocutaneous flap. As a prelude to flap reconstruction, the patient underwent a CT angiogram at [facility] on December 13, 2018. She met with Dr. Frausto later that same day. The patient relates that the nature of the surgical procedure, and the recovery phase, has been described in detail, and it is anticipated to be quite challenging and lengthy. It is anticipated that her surgical procedure will be scheduled at some point in the future, though the patient wishes to consider all options prior to making a firm commitment to surgical intervention. She has most recently been evaluated by a director digital sales at [facility], who had further regulations regarding the patient's expectations for recovery from major surgical intervention. The patient is yet to make a commitment to undergoing major surgery and management of her right groin ulceration. Until that occurs, the patient will follow-up in the Wound Center, and will return in 2 weeks for reassessment. The patient has also met with the vascular surgeon at [facility], Dr. Ganga Tong. Once again, the patient has been left with the impression that any surgery to reconstruct the area in the right groin could be fraught with complications and a lengthy recovery. This has given the patient pause and reason for concern, and she is to continue considering all options. Plan: The patient has been the recipient of 10 EpiFix applications. A request for preauthorization of PuraPly was denied. A series of 90 hyperbaric oxygen therapy sessions have also been completed. Attempts at preauthorization of negative pressure wound therapy have also been denied. We have used a series of Stonewall allografts. For now, we are to continue the use of Mary topically. Requests for preauthorization of advanced therapies have been denied. The patient is to continue with a nutritious diet. Biopsies of the ulceration have been obtained, and the results were negative for malignancy. The patient is now to be co-managed by Plastic Surgeon, Dr. Cassius Whitman, at [facility], and a team of other medical providers at [facility]. It is anticipated that the patient may undergo a rectus abdominis myocutaneous flap reconstruction in the future, and is giving consideration to all aspects related to this option. She has been given understanding that the procedure is a big ordeal, and a lengthy recovery and rehabilitation will likely follow. She has seen a general surgeon at [facility] (Dr. Nunez), and vascular surgeon Dr. Ganga Tong. This multidisciplinary team of surgeons will determine the patient's candidacy for major myocutaneous flap reconstruction, and will be the team involved in performing the procedure if it is deemed that the patient is a suitable candidate. This will also depend upon the patient's decision to proceed with major surgical reconstruction. At this juncture, the patient is very equivocal about whether to proceed with the procedure, given its stated morbidities and lengthy recovery process. The patient is to return in 2 weeks for reassessment. Influenza vaccine was not administered today. The patient is not a smoker. She stands 5 feet 7 inches tall. She weighs 198 pounds. Her BMI is 31, which places her in a class I weight category. Weight loss has been recommended. She is to collaborate with her primary care physician in this regard.
== END 2019-04-08 23:59 ==
LOC: WC 08:30
PROVIDERS: Family Provider Family Medicine; PCP Family Medicine; Referring Provider Surgery; Visit Provider Surgery
DX: L59.8 Other specified disorders of the skin and subcutaneous tissue related to radiation (principal); Y84.2 Radiological procedure and radiotherapy as the cause of abnormal reaction of the patient, or of later complication, without mention of misadventure at the time of the procedure; E66.9 Obesity, unspecified; E78.5 Hyperlipidemia, unspecified; K21.9 Gastro-esophageal reflux disease without esophagitis; L98.492 Non-pressure chronic ulcer of skin of other sites with fat layer exposed; Z85.42 Personal history of malignant neoplasm of other parts of uterus; Z85.820 Personal history of malignant melanoma of skin; Z86.14 Personal history of Methicillin resistant Staphylococcus aureus infection; Z89.611 Acquired absence of right leg above knee; Z87.891 Personal history of nicotine dependence
CPT/HCPCS: 11042

== ENCOUNTER 2019-04-30 08:30 | Outpatient (RCR) | payer OTHER, SELFPAY ==
[2019-04-09 00:32] VITALS: BP 164/97; PULSE 89; RESP 18; TEMP 35.9
[2019-04-16 08:37] VITALS: BP 125/77; PULSE 90; RESP 18; TEMP 35.9; BMI 68.3
--- NOTE | 2019-04-16 09:09 | PCM.WC.HP ---
(1) History of uterine cancer Status: Chronic Current Visit: No Code(s): Z85.42 - Personal history of malignant neoplasm of other parts of uterus (2) History of melanoma Status: Chronic Current Visit: Yes Code(s): Z85.820 - Personal history of malignant melanoma of skin (3) Hyperlipidemia Status: Chronic Current Visit: No Code(s): E78.5 - Hyperlipidemia, unspecified (4) GERD (gastroesophageal reflux disease) Status: Chronic Current Visit: No Code(s): K21.9 - Gastro-esophageal reflux disease without esophagitis (5) Ulcer of right groin Status: Chronic Current Visit: Yes Qualifiers: Non-pressure ulcer stage: with fat layer exposed Code(s): L98.499 - Non-pressure chronic ulcer of skin of other sites with unspecified severity (6) Obesity (BMI 30.0-34.9) Status: Chronic Current Visit: No Code(s): E66.9 - Obesity, unspecified (7) Amputee, above knee Status: Chronic Current Visit: Yes Code(s): Z89.619 - Acquired absence of unspecified leg above knee (8) Soft tissue radionecrosis Status: Chronic Current Visit: Yes Code(s): L59.8 - Other specified disorders of the skin and subcutaneous tissue related to radiation; Y84.2 - Radiological procedure and radiotherapy as the cause of abnormal reaction of the patient, or of later complication, without mention of misadventure at the time of the procedure (9) soft tissue radiation injury Status: Chronic Current Visit: Yes History of Present Illness Date of Service: 04/16/19 Chief Complaint: 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 The patient underwent excision of her melanoma with lymphadenectomy in the right groin. She also underwent lengthy radiation treatments at the [facility] in [place], [place]. Melanoma recurred, and the patient was subsequently treated with monoclonal antibodies in 1984. 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 Treatment included local ulcer care and hyperbaric oxygen therapy. She underwent a total of nearly 90 treatments of hyperbaric oxygen therapy. It is known that she tolerated the therapies well, and derived significant benefit. She relates no history of claustrophobia, or other complications related to the hyperbaric oxygen therapy treatments. She has no history of barotrauma to lungs, ears, etc. Her medical history reveals no evidence of contraindications to hyperbaric oxygen therapy. The patient's current course of management includes a total of 90 sessions of hyperbaric oxygen therapy, which have been completed without total healing of the patient's right groin ulceration. EpiFix allografts have also been used for a series of 10 applications, without total healing. It appears as though the patient's current clinical course is mimicking that of the past, with wound healing which is very recalcitrant to conventional, conservative treatment measures. 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 She has undergone excision of melanoma from the right calf, with lymphadenectomy of the right groin in the 1969's. She subsequently required surgeries of the right thigh related to osteomyelitis, MRSA infection, and radiation injury to the right femoral artery. Ultimately, the patient required right above-knee amputation, performed in 2000. She also has a remote history of open reduction and internal fixation of a right ankle fracture. Allergies/Adverse Reactions: Allergies No Known Allergies Allergy (Verified 06/20/17 09:22) Home Medications: Ambulatory Orders Medication Instructions Recorded Famotidine 20 mg PO 06/20/17 Pravastatin [Pravachol] 20 mg PO DAILY 06/20/17 - Family History Maternal - - The patient's mother is 98 years of age and relatively healthy. The patient's father at age of 79 with a history of cardiomyopathy. Smoking Status: Former smoker Tobacco Use: Non-smoker Review of Systems Constitutional: Denies: Chills, Fever, Weight Change Eyes: Denies: Pain, Vision Change HEENT: Denies: Difficulty Hearing, Difficulty Swallowing, Sinus Congestion Cardiovascular: Denies: Chest Pain, Palpitations Respiratory: Denies: Cough, Shortness of Breath Gastrointestinal: Denies: Diarrhea, Nausea, Vomiting Genitourinary: Denies: Dysuria, Hematuria Endocrine: Denies: Heat/ Cold Intolerance, Polydipsia, Polyuria Hematologic/ Lymphatic: Denies: Easy Bruising, Easy Bleeding - Physical Exam Vital Signs Temp Pulse Resp BP 96.6 F L 90 18 125/77 H 04/16/19 08:37 10 08:37 10 08:37 04/16/19 08:37 General: Alert, Oriented x3, Cooperative, No apparent distress, Well developed, Well nourished HEENT: Atraumatic, PERRLA, EOMI, Normocephalic Oral: Moist Mucosa Neck: No JVD Lungs: Normal air movement Abdomen: Non-Distended Extremities: No clubbing, No cyanosis, No edema, No Calf Tenderness, - - A well-healed right above-knee amputation stump is noted. The right groin ulceration persists. It appears slightly improved. It appears to be diminishing in size over time. There is no sign of infection or cellulitis. Ulcer dimensions are documented elsewhere. There is a small amount of bioburden and nonviable tissue present. Skin: No rashes Wound Measurements and Assessment WC - Nurse 1 - General Ulcer Measurement Start: 04/16/19 08:37 Freq: Status: Active Protocol: Activity Type Activity Date Activity User E-Sign Co-Sign Detail Recorded Client Recorded Date Recorded By Document 04/16/19 08:37 DL [id number] 04/16/19 08:43 DL 04/16/19 08:37 Wound Center Nurse 1 [Ulcer Assessment] #5 R Groin -Current Size (cm) - Length 0.2 -Current Size (cm) - Width 0.2 -Current Size (cm) - Depth 0.2 -Total Square Cm 0.04 -Photo Taken No -Exudate Amt Small -Exudate Type Sanguineous -Wound Margin Thickened -Granulation Amt Large (67-100%) -Granulation Quality Cornish -Necrosis Amt Small (1-33%) -Necrotic Tissue Type Adherent Slough -Structure Exposed N/A -Texture (Blanche-wound Skin Appearance) Scarring -Moisture (Blanche-wound Skin Appearance No Abnormality ) -Color (Blanche-wound Skin Appearance) Rubor -Temperature (Blanche-wound Skin No Abnormality Appearance) (Pt Warm) -Tenderness on Palpation (Blanche-wound No Skin Appearance) -Ulcer Cleansing Rinsed/ Irrigated with Saline -Foul Odor after Cleansing No -Anesthetic Used 5% Lidocaine Gel - Nurse 2 - General Ulcer CM Notes Start: 04/16/19 08:37 Freq: Status: Active Protocol: Activity Type Activity Date Activity User E-Sign Co-Sign Detail Recorded Client Recorded Date Recorded By Document 04/16/19 09:04 [email or web address] [id number] 04/16/19 09:05 04/16/19 09:04 Wound Center Nurse 2 [Procedure/Treatment] -Time 09:05 -Correct Patient Yes -Correct Side, Site, Position Yes -Correct Procedure Yes -Procedure Performed Yes -Type of Procedure Debridement -Clinical Debridement Subcutaneous -Post Debridement Size (cm) - Length 2.7 -Post Debridement Size (cm) - Width 0.2 -Post Debridement Size (cm) - Depth 0.3 -Total Square Cm 0.54 -Wound/Ulcer Outcome Not Healed -Ulcer Cleansing Rinsed/ Irrigated with Saline -Foul Odor after Cleansing No -Bioengineered Tissue No -Bleeding Controlled with Pressure -Offloading No -Treatment Response Procedure Tolerated Well [See Physician Procedure note for Specifics] Pain Scale: 0-10 Numeric [Pain] -Is Patient Pain Free? Yes Musculoskeletal: No Muscle Wasting Neurological: Cranial nerves II-XII grossly intact, Neuro grossly intact Psych/Mental Status: Normal Affect, Appropriate, Alert and oriented to time, place, person, mood and affect Debridement Note Post-Debridement Measurements/Treatment - Nurse 2 - General Ulcer CM Notes Start: 04/16/19 08:37 Freq: Status: Active Protocol: Activity Type Activity Date Activity User E-Sign Co-Sign Detail Recorded Client Recorded Date Recorded By Document 04/16/19 09:04 [email or web address] [id number] 04/16/19 09:05 04/16/19 09:04 Wound Center Nurse 2 #5 R Groin -Time 09:05 -Correct Patient Yes -Correct Side, Site, Position Yes -Correct Procedure Yes -Procedure Performed Yes -Type of Procedure Debridement -Clinical Debridement Subcutaneous -Post Debridement Size (cm) - Length 2.7 -Post Debridement Size (cm) - Width 0.2 -Post Debridement Size (cm) - Depth 0.3 -Total Square Cm 0.54 -Wound/Ulcer Outcome Not Healed -Ulcer Cleansing Rinsed/ Irrigated with Saline -Foul Odor after Cleansing No -Bioengineered Tissue No -Bleeding Controlled with Pressure -Offloading No -Treatment Response Procedure Tolerated Well Pain Scale: 0-10 Numeric Is Patient Pain Free? 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 In the 1970's, she was diagnosed with malignant melanoma of the right calf, with metastasis to lymph nodes in the right groin. She underwent excision of the melanoma with right groin lymphadenectomy. She was subsequently treated with a long series of radiation treatments to the right groin. During the days of her radiation treatment, it is suspected that the radiation techniques were somewhat early in their evolution, and quite likely that the patient received massive doses of radiation exposure, exceeding doses which would be considered appropriate today, with techniques which are primitive by today's standards. As a result, the patient has developed soft tissue radiation injury, and has previously been treated at our wound center in the past with a series of approximately 90 hyperbaric oxygen therapy treatments, in 2011. She presented with recurrence of soft tissue radionecrosis in the right groin. Hyperbaric oxygen therapy treatments were initiated, and the patient has undergone a series of 90 additional hyperbaric oxygen treatment sessions. She has shown mild benefit from the hyperbaric oxygen treatments. At this time, there is no clinical evidence of infection or cellulitis in the blanche-ulcer area. However, the patient is responding very slowly to the variety of conventional treatment measures which have been implemented. In review of the patient's past history, each treatment course has been rather protracted in terms of healing. The patient was previously referred for consultation at [facility] (Dr. Harding), which had been arranged by our facility. Medical records related to the patient's visit at [facility] resulted in no significant new recommendations for treatment or management. The patient remains on a well-balanced diet. Given that little progress has been made in recent months, I have contacted and spoken by phone with the [employer] Officer of the [facility], Dr. Bassam Alas. Dr. Alas has been very helpful. He has conferred with his colleague, Plastic Surgeon Dr. Cassius Whitman. Dr. Whitman has indicated his willingness to evaluate the patient, and the patient has now been evaluated by Dr. Frausto recently. The patient was very impressed with her interaction with the plastic surgeon. A number of options were discussed. Dr. Frausto has proposed a rectus abdominis myocutaneous flap. As a prelude to flap reconstruction, the patient underwent a CT angiogram at [facility] on December 13, 2018. She met with Dr. Frausto later that same day. The patient relates that the nature of the surgical procedure, and the recovery phase, has been described in detail, and it is anticipated to be quite challenging and lengthy. It is anticipated that her surgical procedure will be scheduled at some point in the future, though the patient wishes to consider all options prior to making a firm commitment to surgical intervention. She has most recently been evaluated by a desizing pad operator at [facility], who had further regulations regarding the patient's expectations for recovery from major surgical intervention. The patient is yet to make a commitment to undergoing major surgery and management of her right groin ulceration. Until that occurs, the patient will follow-up in the Wound Center, and will return in 2 weeks for reassessment. The patient has also met with the vascular surgeon at [facility], Dr. Ganga Tong. Once again, the patient has been left with the impression that any surgery to reconstruct the area in the right groin could be fraught with complications and a lengthy recovery. This has given the patient pause and reason for concern, and she is to continue considering all options. Plan: The patient has been the recipient of 10 EpiFix applications. A request for preauthorization of PuraPly was denied. A series of 90 hyperbaric oxygen therapy sessions have also been completed. Attempts at preauthorization of negative pressure wound therapy have also been denied. We have used a series of Loco allografts. For now, we are to continue the use of Mary topically. Requests for preauthorization of advanced therapies have been repeatedly denied. The patient is to continue with a nutritious diet. Biopsies of the ulceration have been obtained, and the results were negative for malignancy. The patient is now to be co-managed by Plastic Surgeon, Dr. Cassius Whitman, at [facility], and a team of other medical providers at [facility]. It is anticipated that the patient may undergo a rectus abdominis myocutaneous flap reconstruction in the future, and is giving consideration to all aspects related to this option. She has been given understanding that the procedure is a big ordeal, and a lengthy recovery and rehabilitation will likely follow. She has seen a general surgeon at [facility] (Dr. Nunez), and vascular surgeon Dr. Ganga Tong. This multidisciplinary team of surgeons will determine the patient's candidacy for major myocutaneous flap reconstruction, and will be the team involved in performing the procedure if it is deemed that the patient is a suitable candidate. This will also depend upon the patient's decision to proceed with major surgical reconstruction. At this juncture, the patient is very equivocal about whether to proceed with the procedure, given its stated morbidities and lengthy recovery process. The patient is to return in 2 weeks for reassessment. Influenza vaccine was not administered today. The patient is not a smoker. She stands 5 feet 7 inches tall. She weighs 198 pounds. Her BMI is 31, which places her in a class I weight category. Weight loss has been recommended. She is to collaborate with her primary care physician in this regard.
[2019-04-30 08:34] VITALS: BP 152/88; PULSE 96; RESP 18; TEMP 35.9; BMI 68.3
--- NOTE | 2019-04-30 09:49 | PCM.WC.HP ---
(1) History of uterine cancer Status: Chronic Current Visit: No Code(s): Z85.42 - Personal history of malignant neoplasm of other parts of uterus (2) History of melanoma Status: Chronic Current Visit: Yes Code(s): Z85.820 - Personal history of malignant melanoma of skin (3) Hyperlipidemia Status: Chronic Current Visit: No Code(s): E78.5 - Hyperlipidemia, unspecified (4) GERD (gastroesophageal reflux disease) Status: Chronic Current Visit: No Code(s): K21.9 - Gastro-esophageal reflux disease without esophagitis (5) Ulcer of right groin Status: Chronic Current Visit: Yes Qualifiers: Non-pressure ulcer stage: with fat layer exposed Code(s): L98.499 - Non-pressure chronic ulcer of skin of other sites with unspecified severity (6) Obesity (BMI 30.0-34.9) Status: Chronic Current Visit: No Code(s): E66.9 - Obesity, unspecified (7) Amputee, above knee Status: Chronic Current Visit: Yes Code(s): Z89.619 - Acquired absence of unspecified leg above knee (8) Soft tissue radionecrosis Status: Chronic Current Visit: Yes Code(s): L59.8 - Other specified disorders of the skin and subcutaneous tissue related to radiation; Y84.2 - Radiological procedure and radiotherapy as the cause of abnormal reaction of the patient, or of later complication, without mention of misadventure at the time of the procedure (9) soft tissue radiation injury Status: Chronic Current Visit: Yes History of Present Illness Date of Service: 04/30/19 Chief Complaint: 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 The patient underwent excision of her melanoma with lymphadenectomy in the right groin. She also underwent lengthy radiation treatments at the [facility] in [place], [place]. Melanoma recurred, and the patient was subsequently treated with monoclonal antibodies in 1984. 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 Treatment included local ulcer care and hyperbaric oxygen therapy. She underwent a total of nearly 90 treatments of hyperbaric oxygen therapy. It is known that she tolerated the therapies well, and derived significant benefit. She relates no history of claustrophobia, or other complications related to the hyperbaric oxygen therapy treatments. She has no history of barotrauma to lungs, ears, etc. Her medical history reveals no evidence of contraindications to hyperbaric oxygen therapy. The patient's current course of management includes a total of 90 sessions of hyperbaric oxygen therapy, which have been completed without total healing of the patient's right groin ulceration. EpiFix allografts have also been used for a series of 10 applications, without total healing. It appears as though the patient's current clinical course is mimicking that of the past, with wound healing which is very recalcitrant to conventional, conservative treatment measures. 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 She has undergone excision of melanoma from the right calf, with lymphadenectomy of the right groin in the 1969's. She subsequently required surgeries of the right thigh related to osteomyelitis, MRSA infection, and radiation injury to the right femoral artery. Ultimately, the patient required right above-knee amputation, performed in 2000. She also has a remote history of open reduction and internal fixation of a right ankle fracture. Allergies/Adverse Reactions: Allergies No Known Allergies Allergy (Verified 06/20/17 09:22) Home Medications: Ambulatory Orders Medication Instructions Recorded Famotidine 20 mg PO 06/20/17 Pravastatin [Pravachol] 20 mg PO DAILY 06/20/17 - Family History Maternal - - The patient's mother is 98 years of age and relatively healthy. The patient's father at age of 79 with a history of cardiomyopathy. Smoking Status: Former smoker Tobacco Use: Non-smoker Review of Systems Constitutional: Denies: Chills, Fever, Weight Change Eyes: Denies: Pain, Vision Change HEENT: Denies: Difficulty Hearing, Difficulty Swallowing, Sinus Congestion Cardiovascular: Denies: Chest Pain, Palpitations Respiratory: Denies: Cough, Shortness of Breath Gastrointestinal: Denies: Diarrhea, Nausea, Vomiting Genitourinary: Denies: Dysuria, Hematuria Endocrine: Denies: Heat/ Cold Intolerance, Polydipsia, Polyuria Hematologic/ Lymphatic: Denies: Easy Bruising, Easy Bleeding - Physical Exam Vital Signs Temp Pulse Resp BP 96.6 F L 96 18 152/88 H 04/30/19 08:34 10 08:34 04/30/19 08:34 04/30/19 08:34 General: Alert, Oriented x3, Cooperative, No apparent distress, Well developed, Well nourished HEENT: Atraumatic, PERRLA, EOMI, Normocephalic Oral: Moist Mucosa Neck: No JVD Lungs: Normal air movement Abdomen: Non-Distended Extremities: No clubbing, No cyanosis, No edema, No Calf Tenderness, - - A well-healed right above-knee amputation stump is noted. The ulceration in the right groin is little changed in size or appearance. There is no sign of infection or cellulitis. Dimensions are documented elsewhere. There is a mild amount of bioburden. Wound Measurements and Assessment WC - Nurse 1 - General Ulcer Measurement Start: 04/16/19 08:37 Freq: Status: Active Protocol: Activity Type Activity Date Activity User E-Sign Co-Sign Detail Recorded Client Recorded Date Recorded By Document 04/30/19 08:34 [id number] 04/30/19 08:39 DL 04/30/19 08:34 Wound Center Nurse 1 [Ulcer Assessment] #5 R Groin -Current Size (cm) - Length 1.8 -Current Size (cm) - Width 0.4 -Current Size (cm) - Depth 0.3 -Total Square Cm 0.72 -Photo Taken No -Exudate Amt None Present -Wound Margin Thickened -Granulation Amt Large (67-100%) -Granulation Quality [place] -Necrosis Amt Small (1-33%) -Necrotic Tissue Type Adherent Slough -Structure Exposed N/A -Texture (Blanche-wound Skin Appearance) Scarring -Moisture (Blanche-wound Skin Appearance No Abnormality ) -Color (Blanche-wound Skin Appearance) Rubor -Temperature (Blanche-wound Skin No Abnormality Appearance) (Pt Warm) -Tenderness on Palpation (Blanche-wound No Skin Appearance) -Ulcer Cleansing Rinsed/ Irrigated with Saline -Foul Odor after Cleansing No -Anesthetic Used 5% Lidocaine Gel Musculoskeletal: No Muscle Wasting Neurological: Cranial nerves II-XII grossly intact, Neuro grossly intact Psych/Mental Status: Normal Affect, Appropriate, Alert and oriented to time, place, person, mood and affect Debridement Note Post-Debridement Measurements/Treatment WC - Nurse 2 - General Ulcer CM Notes Start: 04/16/19 08:37 Freq: Status: Active Protocol: Activity Type Activity Date Activity User E-Sign Co-Sign Detail Recorded Client Recorded Date Recorded By Document 04/16/19 09:04 HARDIK [id number] 04/16/19 09:05 HARDIK 04/16/19 09:04 Wound Center Nurse 2 #5 R Groin -Time 09:05 -Correct Patient Yes -Correct Side, Site, Position Yes -Correct Procedure Yes -Procedure Performed Yes -Type of Procedure Debridement -Clinical Debridement Subcutaneous -Post Debridement Size (cm) - Length 2.7 -Post Debridement Size (cm) - Width 0.2 -Post Debridement Size (cm) - Depth 0.3 -Total Square Cm 0.54 -Wound/Ulcer Outcome Not Healed -Ulcer Cleansing Rinsed/ Irrigated with Saline -Foul Odor after Cleansing No -Bioengineered Tissue No -Bleeding Controlled with Pressure -Offloading No -Treatment Response Procedure Tolerated Well Pain Scale: 0-10 Numeric Is Patient Pain Free? 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 In the 1970's, she was diagnosed with malignant melanoma of the right calf, with metastasis to lymph nodes in the right groin. She underwent excision of the melanoma with right groin lymphadenectomy. She was subsequently treated with a long series of radiation treatments to the right groin. During the days of her radiation treatment, it is suspected that the radiation techniques were somewhat early in their evolution, and quite likely that the patient received massive doses of radiation exposure, exceeding doses which would be considered appropriate today, with techniques which are primitive by today's standards. As a result, the patient has developed soft tissue radiation injury, and has previously been treated at our wound center in the past with a series of approximately 90 hyperbaric oxygen therapy treatments, in 2011. She presented with recurrence of soft tissue radionecrosis in the right groin. Hyperbaric oxygen therapy treatments were initiated, and the patient has undergone a series of 90 additional hyperbaric oxygen treatment sessions. She has shown mild benefit from the hyperbaric oxygen treatments. At this time, there is no clinical evidence of infection or cellulitis in the blanche-ulcer area. However, the patient is responding very slowly to the variety of conventional treatment measures which have been implemented. In review of the patient's past history, each treatment course has been rather protracted in terms of healing. The patient was previously referred for consultation at [facility] (Dr. Harding), which had been arranged by our facility. Medical records related to the patient's visit at [facility] resulted in no significant new recommendations for treatment or management. The patient remains on a well-balanced diet. Given that little progress has been made in recent months, I have contacted and spoken by phone with the Yarn Polishing Machine Operator of the [facility], Dr. Bassam Alas. Dr. Alas has been very helpful. He has conferred with his colleague, Plastic Surgeon Dr. Cassius Whitman. Dr. Whitman has indicated his willingness to evaluate the patient, and the patient has now been evaluated by Dr. Frausto recently. The patient was very impressed with her interaction with the plastic surgeon. A number of options were discussed. Dr. Frausto has proposed a rectus abdominis myocutaneous flap. As a prelude to flap reconstruction, the patient underwent a CT angiogram at [facility] on December 13, 2018. She met with Dr. Frausto later that same day. The patient relates that the nature of the surgical procedure, and the recovery phase, has been described in detail, and it is anticipated to be quite challenging and lengthy. It is anticipated that her surgical procedure will be scheduled at some point in the future, though the patient wishes to consider all options prior to making a firm commitment to surgical intervention. She has most recently been evaluated by a grill prep cook at [facility], who had further regulations regarding the patient's expectations for recovery from major surgical intervention. The patient is yet to make a commitment to undergoing major surgery and management of her right groin ulceration. Until that occurs, the patient will follow-up in the Wound Center, and will return in 2 weeks for reassessment. The patient has also met with the vascular surgeon at [facility], Dr. Ganga Tong. Once again, the patient has been left with the impression that any surgery to reconstruct the area in the right groin could be fraught with complications and a lengthy recovery. This has given the patient pause and reason for concern, and she is to continue considering all options. Plan: The patient has been the recipient of 10 EpiFix applications. A request for preauthorization of PuraPly was denied. A series of 90 hyperbaric oxygen therapy sessions have also been completed. Attempts at preauthorization of negative pressure wound therapy have also been denied. We have used a series of [place] allografts. For now, we are to continue the use of Mary topically. Requests for preauthorization of advanced therapies have been repeatedly denied. The patient is to continue with a nutritious diet. Biopsies of the ulceration have been obtained, and the results were negative for malignancy. The patient is now to be co-managed by Plastic Surgeon, Dr. Cassius Whitman, at [facility], and a team of other medical providers at [facility]. It is anticipated that the patient may undergo a rectus abdominis myocutaneous flap reconstruction in the future, and is giving consideration to all aspects related to this option. She has been given understanding that the procedure is a big ordeal, and a lengthy recovery and rehabilitation will likely follow. She has seen a general surgeon at [facility] (Dr. Nunez), and vascular surgeon Dr. Ganga Tong. This multidisciplinary team of surgeons will determine the patient's candidacy for major myocutaneous flap reconstruction, and will be the team involved in performing the procedure if it is deemed that the patient is a suitable candidate. This will also depend upon the patient's decision to proceed with major surgical reconstruction. At this juncture, the patient is very equivocal about whether to proceed with the procedure, given its stated morbidities and lengthy recovery process. The patient is to return in 2 weeks for reassessment. Influenza vaccine was not administered today. The patient is not a smoker. She stands 5 feet 7 inches tall. She weighs 198 pounds. Her BMI is 31, which places her in a class I weight category. Weight loss has been recommended. She is to collaborate with her primary care physician in this regard.
== END 2019-05-09 23:59 ==
LOC: WC 08:30
PROVIDERS: Family Provider Family Medicine; PCP Family Medicine; Referring Provider Surgery; Visit Provider Surgery
DX: L59.8 Other specified disorders of the skin and subcutaneous tissue related to radiation (principal); Y84.2 Radiological procedure and radiotherapy as the cause of abnormal reaction of the patient, or of later complication, without mention of misadventure at the time of the procedure; E78.5 Hyperlipidemia, unspecified; K21.9 Gastro-esophageal reflux disease without esophagitis; L98.492 Non-pressure chronic ulcer of skin of other sites with fat layer exposed; Z89.619 Acquired absence of unspecified leg above knee; E66.9 Obesity, unspecified; Z85.820 Personal history of malignant melanoma of skin; Z85.42 Personal history of malignant neoplasm of other parts of uterus; Z86.14 Personal history of Methicillin resistant Staphylococcus aureus infection; Z87.891 Personal history of nicotine dependence
CPT/HCPCS: 11042

== ENCOUNTER 2019-05-28 08:30 | Outpatient (RCR) | payer OTHER, SELFPAY ==
[2019-05-10 00:34] VITALS: BP 152/88; PULSE 96; RESP 18; TEMP 35.9
[2019-05-14 08:32] VITALS: BP 161/87; PULSE 96; RESP 18; TEMP 36.6; BMI 68.3
--- NOTE | 2019-05-14 09:01 | HP.PCM_ITS ---
(1) History of uterine cancer Status: Chronic Current Visit: No Code(s): Z85.42 - Personal history of malignant neoplasm of other parts of uterus (2) History of melanoma Status: Chronic Current Visit: Yes Code(s): Z85.820 - Personal history of malignant melanoma of skin (3) Hyperlipidemia Status: Chronic Current Visit: No Code(s): E78.5 - Hyperlipidemia, unspecified (4) GERD (gastroesophageal reflux disease) Status: Chronic Current Visit: No Code(s): K21.9 - Gastro-esophageal reflux disease without esophagitis (5) Ulcer of right groin Status: Chronic Current Visit: Yes Qualifiers: Non-pressure ulcer stage: with fat layer exposed Code(s): L98.499 - Non-pressure chronic ulcer of skin of other sites with unspecified severity (6) Obesity (BMI 30.0-34.9) Status: Chronic Current Visit: No Code(s): E66.9 - Obesity, unspecified (7) Amputee, above knee Status: Chronic Current Visit: Yes Code(s): Z89.619 - Acquired absence of unspecified leg above knee (8) Soft tissue radionecrosis Status: Chronic Current Visit: Yes Code(s): L59.8 - Other specified disorders of the skin and subcutaneous tissue related to radiation; Y84.2 - Radiological procedure and radiotherapy as the cause of abnormal reaction of the patient, or of later complication, without mention of misadventure at the time of the procedure (9) soft tissue radiation injury Status: Chronic Current Visit: Yes History of Present Illness Date of Service: 05/14/19 Chief Complaint: 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 The patient underwent excision of her melanoma with lymphadenectomy in the right groin. She also underwent lengthy radiation treatments at the [facility] in [place], [place]. Melanoma recurred, and the patient was subsequently treated with monoclonal antibodies in 1984. 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 Treatment included local ulcer care and hyperbaric oxygen therapy. She underwent a total of nearly 90 treatments of hyperbaric oxygen therapy. It is known that she tolerated the therapies well, and derived significant benefit. She relates no history of claustrophobia, or other complications related to the hyperbaric oxygen therapy treatments. She has no history of barotrauma to lungs, ears, etc. Her medical history reveals no evidence of contraindications to hyperbaric oxygen therapy. The patient's current course of management includes a total of 90 sessions of hyperbaric oxygen therapy, which have been completed without total healing of the patient's right groin ulceration. EpiFix allografts have also been used for a series of 10 applications, without total healing. It appears as though the patient's current clinical course is mimicking that of the past, with wound healing which is very recalcitrant to conventional, conservative treatment measures. 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 She has undergone excision of melanoma from the right calf, with lymphadenectomy of the right groin in the 1969's. She subsequently required surgeries of the right thigh related to osteomyelitis, MRSA infection, and radiation injury to the right femoral artery. Ultimately, the patient required right above-knee amputation, performed in 2000. She also has a remote history of open reduction and internal fixation of a right ankle fracture. Allergies/Adverse Reactions: Allergies No Known Allergies Allergy (Verified 06/20/17 09:22) Home Medications: Ambulatory Orders Medication Instructions Recorded Famotidine 20 mg PO 06/20/17 Pravastatin [Pravachol] 20 mg PO DAILY 06/20/17 - Family History Maternal - - The patient's mother is 98 years of age and relatively healthy. The patient's father at age of 79 with a history of cardiomyopathy. Smoking Status: Former smoker Tobacco Use: Non-smoker Review of Systems Constitutional: Denies: Chills, Fever, Weight Change Eyes: Denies: Pain, Vision Change HEENT: Denies: Difficulty Hearing, Difficulty Swallowing, Sinus Congestion Cardiovascular: Denies: Chest Pain, Palpitations Respiratory: Denies: Cough, Shortness of Breath Gastrointestinal: Denies: Diarrhea, Nausea, Vomiting Genitourinary: Denies: Dysuria, Hematuria Endocrine: Denies: Heat/ Cold Intolerance, Polydipsia, Polyuria Hematologic/ Lymphatic: Denies: Easy Bruising, Easy Bleeding - Physical Exam Vital Signs Temp Pulse Resp BP 97.8 F 96 18 161/87 H 05/14/19 08:32 05/14/19 08:32 05/14/19 08:32 05/14/19 08:32 General: Alert, Oriented x3, Cooperative, No apparent distress, Well developed, Well nourished HEENT: Atraumatic, PERRLA, EOMI, Normocephalic Oral: Moist Mucosa Neck: No JVD Lungs: Normal air movement Abdomen: Non-Distended Extremities: No clubbing, No cyanosis, No edema, No Calf Tenderness, - - A well- healed right above-knee amputation stump is noted. The chronic ulceration in the right groin appears significantly improved. Dimensions and depth continue to diminish. There is a small amount of bioburden and nonviable tissue. There is no sign of infection or cellulitis. There is no significant odor or drainage. Dimensions are documented elsewhere. Skin: No rashes Wound Measurements and Assessment WC - Nurse 1 - General Ulcer Measurement Start: 05/14/19 08:32 Freq: Status: Active Protocol: Activity Type Activity Date Activity User E-Sign Co-Sign Detail Recorded Client Recorded Date Recorded By Document 05/14/19 08:32 [id number] 05/14/19 08:39 DL 05/14/19 08:32 Wound Center Nurse 1 [Ulcer Assessment] #5 R Groin -Current Size (cm) - Length 0.1 -Current Size (cm) - Width 0.1 -Current Size (cm) - Depth 0.1 -Total Square Cm 0.01 -Photo Taken No -Exudate Amt Small -Exudate Type Serosanguineous -Wound Margin Distinct, Outline Attached -Granulation Amt Large (67-100%) -Granulation Quality [place] -Necrosis Amt None Present (0 %) -Structure Exposed N/A -Texture (Blanche-wound Skin Appearance) Scarring -Moisture (Blanche-wound Skin Appearance Dry/Scaly ) -Color (Blanche-wound Skin Appearance) Rubor -Temperature (Blanche-wound Skin No Abnormality Appearance) (Pt Warm) -Tenderness on Palpation (Blanche-wound No Skin Appearance) -Ulcer Cleansing Rinsed/ Irrigated with Saline -Foul Odor after Cleansing No -Anesthetic Used 4% Lidocaine Solution - Nurse 2 - General Ulcer CM Notes Start: 05/14/19 08:32 Freq: Status: Active Protocol: Activity Type Activity Date Activity User E-Sign Co-Sign Detail Recorded Client Recorded Date Recorded By Document 05/14/19 08:45 DL [id number] 05/14/19 08:51 DL 05/14/19 08:45 Wound Center Nurse 2 [Procedure/Treatment] -Time 08:47 -Correct Patient Yes -Correct Side, Site, Position Yes -Correct Procedure Yes -Procedure Performed Yes -Type of Procedure Debridement -Clinical Debridement Subcutaneous -Post Debridement Size (cm) - Length 2.8 -Post Debridement Size (cm) - Width 0.2 -Post Debridement Size (cm) - Depth 0.4 -Total Square Cm 0.56 -Wound/Ulcer Outcome Not Healed -Ulcer Cleansing Not Cleansed -Foul Odor after Cleansing No -Bioengineered Tissue No -Bleeding Controlled with Pressure [See Physician Procedure note for Specifics] Pain Scale: 0-10 Numeric [Pain] -Is Patient Pain Free? Yes Musculoskeletal: No Muscle Wasting Neurological: Cranial nerves II-XII grossly intact, Neuro grossly intact Psych/Mental Status: Normal Affect, Appropriate, Alert and oriented to time, place, person, mood and affect Debridement Note Post-Debridement Measurements/Treatment - Nurse 2 - General Ulcer CM Notes Start: 05/14/19 08:32 Freq: Status: Active Protocol: Activity Type Activity Date Activity User E-Sign Co-Sign Detail Recorded Client Recorded Date Recorded By Document 05/14/19 08:45 DL [id number] 05/14/19 08:51 DL 05/14/19 08:45 Wound Center Nurse 2 #5 R Groin -Time 08:47 -Correct Patient Yes -Correct Side, Site, Position Yes -Correct Procedure Yes -Procedure Performed Yes -Type of Procedure Debridement -Clinical Debridement Subcutaneous -Post Debridement Size (cm) - Length 2.8 -Post Debridement Size (cm) - Width 0.2 -Post Debridement Size (cm) - Depth 0.4 -Total Square Cm 0.56 -Wound/Ulcer Outcome Not Healed -Ulcer Cleansing Not Cleansed -Foul Odor after Cleansing No -Bioengineered Tissue No -Bleeding Controlled with Pressure Pain Scale: 0-10 Numeric Is Patient Pain Free? 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 In the 1970's, she was diagnosed with malignant melanoma of the right calf, with metastasis to lymph nodes in the right groin. She underwent excision of the melanoma with right groin lymphadenectomy. She was subsequently treated with a long series of radiation treatments to the right groin. During the days of her radiation treatment, it is suspected that the radiation techniques were somewhat early in their evolution, and quite likely that the patient received massive doses of radiation exposure, exceeding doses which would be considered appropriate today, with techniques which are primitive by today's standards. As a result, the patient has developed soft tissue radiation injury, and has previously been treated at our wound center in the past with a series of approximately 90 hyperbaric oxygen therapy treatments, in 2011. She presented with recurrence of soft tissue radionecrosis in the right groin. Hyperbaric oxygen therapy treatments were initiated, and the patient has undergone a series of 90 additional hyperbaric oxygen treatment sessions. She has shown mild benefit from the hyperbaric oxygen treatments. At this time, there is no clinical evidence of infection or cellulitis in the blanche-ulcer area. However, the patient is responding very slowly to the variety of conventional treatment measures which have been implemented. In review of the patient's past history, each treatment course has been rather protracted in terms of healing. The patient was previously referred for consultation at [facility] (Dr. Harding), which had been arranged by our facility. Medical records related to the patient's visit at [facility] resulted in no significant new recommendations for treatment or management. The patient remains on a well- balanced diet. Given that little progress has been made in recent months, I have contacted and spoken by phone with the [facility] of the [facility], Dr. Bassam Alas. Dr. Alas has been very helpful. He has conferred with his colleague, Plastic Surgeon Dr. Cassius Whitman. Dr. Whitman has indicated his willingness to evaluate the patient, and the patient has now been evaluated by Dr. Frausto recently. The patient was very impressed with her interaction with the plastic surgeon. A number of options were discussed. Dr. Frausto has proposed a rectus abdom inis myocutaneous flap. As a prelude to flap reconstruction, the patient underwent a CT angiogram at [facility] on December 13, 2018. She met with Dr. Frausto later that same day. The patient relates that the nature of the surgical procedure, and the recovery phase, has been described in detail, and it is anticipated to be quite challenging and lengthy. It is anticipated that her surgical procedure will be scheduled at some point in the future, though the patient wishes to consider all options prior to making a firm commitment to surgical intervention. She has most recently been evaluated by a head of loss prevention at [facility], who had further regulations regarding the patient's expectations for recovery from major surgical intervention. The patient is yet to make a commitment to undergoing major surgery and management of her right groin ulceration. Until that occurs, the patient will follow-up in the Wound Center, and will return in 2 weeks for reassessment. The patient has also met with the vascular surgeon at [facility], Dr. Ganga Tong. Once again, the patient has been left with the impression that any surgery to reconstruct the area in the right groin could be fraught with complications and a lengthy recovery. This has given the patient pause and reason for concern, and she is to continue considering all options. Plan: The patient has been the recipient of 10 EpiFix applications. A request for preauthorization of PuraPly was denied. A series of 90 hyperbaric oxygen therapy sessions have also been completed. Attempts at preauthorization of negative pressure wound therapy have also been denied. We have used a series of [place] allografts. For now, we are to continue the use of Mary topically. Requests for preauthorization of advanced therapies have been repeatedly denied. The patient is to continue with a nutritious diet. Biopsies of the ulceration have been obtained, and the results were negative for malignancy. The patient is now to be co-managed by Plastic Surgeon, Dr. Cassius Whitman, at [facility], and a team of other medical providers at [facility]. It is anticipated that the patient may undergo a rectus abdominis myocutaneous flap reconstruction in the future, and is giving consideration to all aspects related to this option. She has been given understanding that the procedure is a big ordeal, and a lengthy recovery and rehabilitation will likely follow. She has seen a general surgeon at [facility] (Dr. Nunez), and vascular surgeon Dr. Ganga Tong. This multidisciplinary team of surgeons will determine the patient's candidacy for major myocutaneous flap reconstruction, and will be the team involved in performing the procedure if it is deemed that the patient is a suitable candidate. This will also depend upon the patient's decision to proceed with major surgical reconstruction. At this juncture, the patient is very equivocal about whether to proceed with the procedure, given its stated morbidities and lengthy recovery process. The patient is to return in 2 weeks for reassessment. Influenza vaccine was not administered today. The patient is not a smoker. She stands 5 feet 7 inches tall. She weighs 198 pounds. Her BMI is 31, which places her in a class I weight category. Weight loss has been recommended. She is to collaborate with her primary care physician in this regard.
[2019-05-28 08:43] VITALS: BP 145/85; PULSE 91; RESP 18; TEMP 36.6; BMI 68.3
--- NOTE | 2019-05-28 09:17 | PCM.WC.HP ---
(1) History of uterine cancer Status: Chronic Current Visit: No Code(s): Z85.42 - Personal history of malignant neoplasm of other parts of uterus (2) History of melanoma Status: Chronic Current Visit: Yes Code(s): Z85.820 - Personal history of malignant melanoma of skin (3) Hyperlipidemia Status: Chronic Current Visit: No Code(s): E78.5 - Hyperlipidemia, unspecified (4) GERD (gastroesophageal reflux disease) Status: Chronic Current Visit: No Code(s): K21.9 - Gastro-esophageal reflux disease without esophagitis (5) Ulcer of right groin Status: Chronic Current Visit: Yes Qualifiers: Non-pressure ulcer stage: with fat layer exposed Code(s): L98.499 - Non-pressure chronic ulcer of skin of other sites with unspecified severity (6) Obesity (BMI 30.0-34.9) Status: Chronic Current Visit: No Code(s): E66.9 - Obesity, unspecified (7) Amputee, above knee Status: Chronic Current Visit: Yes Code(s): Z89.619 - Acquired absence of unspecified leg above knee (8) Soft tissue radionecrosis Status: Chronic Current Visit: Yes Code(s): L59.8 - Other specified disorders of the skin and subcutaneous tissue related to radiation; Y84.2 - Radiological procedure and radiotherapy as the cause of abnormal reaction of the patient, or of later complication, without mention of misadventure at the time of the procedure (9) soft tissue radiation injury Status: Chronic Current Visit: Yes History of Present Illness Date of Service: 05/28/19 Chief Complaint: 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 The patient underwent excision of her melanoma with lymphadenectomy in the right groin. She also underwent lengthy radiation treatments at the [facility] in [place], [place]. Melanoma recurred, and the patient was subsequently treated with monoclonal antibodies in 1984. 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 Treatment included local ulcer care and hyperbaric oxygen therapy. She underwent a total of nearly 90 treatments of hyperbaric oxygen therapy. It is known that she tolerated the therapies well, and derived significant benefit. She relates no history of claustrophobia, or other complications related to the hyperbaric oxygen therapy treatments. She has no history of barotrauma to lungs, ears, etc. Her medical history reveals no evidence of contraindications to hyperbaric oxygen therapy. The patient's current course of management includes a total of 90 sessions of hyperbaric oxygen therapy, which have been completed without total healing of the patient's right groin ulceration. EpiFix allografts have also been used for a series of 10 applications, without total healing. It appears as though the patient's current clinical course is mimicking that of the past, with wound healing which is very recalcitrant to conventional, conservative treatment measures. 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 She has undergone excision of melanoma from the right calf, with lymphadenectomy of the right groin in the 1969's. She subsequently required surgeries of the right thigh related to osteomyelitis, MRSA infection, and radiation injury to the right femoral artery. Ultimately, the patient required right above-knee amputation, performed in 2000. She also has a remote history of open reduction and internal fixation of a right ankle fracture. Allergies/Adverse Reactions: Allergies No Known Allergies Allergy (Verified 06/20/17 09:22) Home Medications: Ambulatory Orders Medication Instructions Recorded Famotidine 20 mg PO 06/20/17 Pravastatin [Pravachol] 20 mg PO DAILY 06/20/17 - Family History Maternal - - The patient's mother is 98 years of age and relatively healthy. The patient's father at age of 79 with a history of cardiomyopathy. Smoking Status: Former smoker Tobacco Use: Non-smoker Review of Systems Constitutional: Denies: Chills, Fever, Weight Change Eyes: Denies: Pain, Vision Change HEENT: Denies: Difficulty Hearing, Difficulty Swallowing, Sinus Congestion Cardiovascular: Denies: Chest Pain, Palpitations Respiratory: Denies: Cough, Shortness of Breath Gastrointestinal: Denies: Diarrhea, Nausea, Vomiting Genitourinary: Denies: Dysuria, Hematuria Endocrine: Denies: Heat/ Cold Intolerance, Polydipsia, Polyuria Hematologic/ Lymphatic: Denies: Easy Bruising, Easy Bleeding - Physical Exam Vital Signs Temp Pulse Resp BP 97.8 F 91 18 145/85 H 05/28/19 08:43 05/28/19 08:43 05/28/19 08:43 05/28/19 08:43 General: Alert, Oriented x3, Cooperative, No apparent distress, Well developed, Well nourished HEENT: Atraumatic, PERRLA, EOMI, Normocephalic Oral: Moist Mucosa Neck: No JVD Lungs: Normal air movement Abdomen: Non-Distended Extremities: No clubbing, No cyanosis, No edema, No Calf Tenderness, - - A well-healed right above-knee amputation stump is noted. The patient's ulceration in the right groin is slightly improved. It appears to be smaller in size. There is no sign of infection or cellulitis. There is a mild amount of bioburden. Dimensions are documented elsewhere. Skin: No rashes Wound Measurements and Assessment WC - Nurse 1 - General Ulcer Measurement Start: 05/14/19 08:32 Freq: Status: Active Protocol: Activity Type Activity Date Activity User E-Sign Co-Sign Detail Recorded Client Recorded Date Recorded By Document 05/28/19 08:43 [id number] 05/28/19 08:45 HARDIK 05/28/19 08:43 Wound Center Nurse 1 [Ulcer Assessment] #5 R Groin -Combined with other wound No -Current Size (cm) - Length 2.8 -Current Size (cm) - Width 0.2 -Current Size (cm) - Depth 0.3 -Total Square Cm 0.56 -Photo Taken No -Epithelialization Small 1-33% -Tunneling No -Undermining/Tunneling No -Circular Undermining No -Exudate Amt Small -Exudate Type Serosanguineous -Wound Margin Flat & Intact -Granulation Amt Large (67-100%) -Granulation Quality Red -Slough/Fibrin Yes -Necrosis Amt Small (1-33%) -Necrotic Tissue Type Adherent Slough -Structure Exposed N/A -Texture (Blanche-wound Skin Appearance) Assessed, Scarring -Moisture (Blanche-wound Skin Appearance Assessed,Dry/ ) Scaly -Color (Blanche-wound Skin Appearance) Assessed -Temperature (Blanche-wound Skin No Abnormality Appearance) (Pt Warm) -Tenderness on Palpation (Blanche-wound No Skin Appearance) -Ulcer Cleansing Rinsed/ Irrigated with Saline -Foul Odor after Cleansing No -Anesthetic Used 5% Lidocaine Gel [Edema Assessment] -Lower Limb Edema Present NA WC - Nurse 2 - General Ulcer CM Notes Start: 05/14/19 08:32 Freq: Status: Active Protocol: Activity Type Activity Date Activity User E-Sign Co-Sign Detail Recorded Client Recorded Date Recorded By Document 05/28/19 09:06 [id number] 05/28/19 09:16 05/28/19 09:06 Wound Center Nurse 2 [Procedure/Treatment] #5 R Groin -Time 09:10 -Correct Patient Yes -Correct Side, Site, Position Yes -Correct Procedure Yes -Procedure Performed Yes -Type of Procedure Debridement -Clinical Debridement Subcutaneous -Post Debridement Size (cm) - Length 2.5 -Post Debridement Size (cm) - Width 0.3 -Post Debridement Size (cm) - Depth 0.3 -Total Square Cm 0.75 -Wound/Ulcer Outcome Not Healed -Bleeding Controlled with Pressure [See Physician Procedure note for Specifics] Pain Scale: 0-10 Numeric [Pain] -Is Patient Pain Free? Yes Musculoskeletal: No Muscle Wasting Neurological: Cranial nerves II-XII grossly intact, Neuro grossly intact Psych/Mental Status: Normal Affect, Appropriate, Alert and oriented to time, place, person, mood and affect Debridement Note Post-Debridement Measurements/Treatment WC - Nurse 2 - General Ulcer CM Notes Start: 05/14/19 08:32 Freq: Status: Active Protocol: Activity Type Activity Date Activity User E-Sign Co-Sign Detail Recorded Client Recorded Date Recorded By Document 05/14/19 08:45 [email or web address] [id number] 05/14/19 08:51 DL Document 05/28/19 09:06 [id number] 05/28/19 09:16 05/14/19 05/28/19 08:45 09:06 Wound Center Nurse 2 #5 R Groin -Time 08:47 09:10 -Correct Patient Yes Yes -Correct Side, Site, Position Yes Yes -Correct Procedure Yes Yes -Procedure Performed Yes Yes -Type of Procedure Debridement Debridement -Clinical Debridement Subcutaneous Subcutaneous -Post Debridement Size (cm) - Length 2.8 2.5 -Post Debridement Size (cm) - Width 0.2 0.3 -Post Debridement Size (cm) - Depth 0.4 0.3 -Total Square Cm 0.56 0.75 -Wound/Ulcer Outcome Not Healed Not Healed -Ulcer Cleansing Not Cleansed -Foul Odor after Cleansing No -Bioengineered Tissue No -Bleeding Controlled with Pressure Pressure Pain Scale: 0-10 Numeric Is Patient Pain Free? 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 In the 1970's, she was diagnosed with malignant melanoma of the right calf, with metastasis to lymph nodes in the right groin. She underwent excision of the melanoma with right groin lymphadenectomy. She was subsequently treated with a long series of radiation treatments to the right groin. During the days of her radiation treatment, it is suspected that the radiation techniques were somewhat early in their evolution, and quite likely that the patient received massive doses of radiation exposure, exceeding doses which would be considered appropriate today, with techniques which are primitive by today's standards. As a result, the patient has developed soft tissue radiation injury, and has previously been treated at our wound center in the past with a series of approximately 90 hyperbaric oxygen therapy treatments, in 2011. She presented with recurrence of soft tissue radionecrosis in the right groin. Hyperbaric oxygen therapy treatments were initiated, and the patient has undergone a series of 90 additional hyperbaric oxygen treatment sessions. She has shown mild benefit from the hyperbaric oxygen treatments. At this time, there is no clinical evidence of infection or cellulitis in the blanche-ulcer area. However, the patient is responding very slowly to the variety of conventional treatment measures which have been implemented. In review of the patient's past history, each treatment course has been rather protracted in terms of healing. The patient was previously referred for consultation at [facility] (Dr. Harding), which had been arranged by our facility. Medical records related to the patient's visit at [facility] resulted in no significant new recommendations for treatment or management. The patient remains on a well-balanced diet. Given that little progress has been made in recent months, I have contacted and spoken by phone with the [place] Operator of the [facility], Dr. Bassam Alas. Dr. Alas has been very helpful. He has conferred with his colleague, Plastic Surgeon Dr. Cassius Whitman. Dr. Whitman has indicated his willingness to evaluate the patient, and the patient has now been evaluated by Dr. Frausto recently. The patient was very impressed with her interaction with the plastic surgeon. A number of options were discussed. Dr. Frausto has proposed a rectus abdominis myocutaneous flap. As a prelude to flap reconstruction, the patient underwent a CT angiogram at [facility] on December 13, 2018. She met with Dr. Frausto later that same day. The patient relates that the nature of the surgical procedure, and the recovery phase, has been described in detail, and it is anticipated to be quite challenging and lengthy. It is anticipated that her surgical procedure will be scheduled at some point in the future, though the patient wishes to consider all options prior to making a firm commitment to surgical intervention. She has most recently been evaluated by a java flex developer at [facility], who had further regulations regarding the patient's expectations for recovery from major surgical intervention. The patient is yet to make a commitment to undergoing major surgery and management of her right groin ulceration. Until that occurs, the patient will follow-up in the Wound Center, and will return in 2 weeks for reassessment. The patient has also met with the vascular surgeon at [facility], Dr. Ganga Tong. Once again, the patient has been left with the impression that any surgery to reconstruct the area in the right groin could be fraught with complications and a lengthy recovery. This has given the patient pause and reason for concern, and she is to continue considering all options. Plan: The patient has been the recipient of 10 EpiFix applications. A request for preauthorization of PuraPly was denied. A series of 90 hyperbaric oxygen therapy sessions have also been completed. Attempts at preauthorization of negative pressure wound therapy have also been denied. We have used a series of Supreme allografts. For now, we are to continue the use of Mary topically. Requests for preauthorization of advanced therapies have been repeatedly denied. The patient is to continue with a nutritious diet. Biopsies of the ulceration have been obtained, and the results were negative for malignancy. The patient is now to be co-managed by Plastic Surgeon, Dr. Cassius Whitman, at [facility], and a team of other medical providers at [facility]. It is anticipated that the patient may undergo a rectus abdominis myocutaneous flap reconstruction in the future, and is giving consideration to all aspects related to this option. She has been given understanding that the procedure is a big ordeal, and a lengthy recovery and rehabilitation will likely follow. She has seen a general surgeon at [facility] (Dr. Nunez), and vascular surgeon Dr. Ganga Tong. This multidisciplinary team of surgeons will determine the patient's candidacy for major myocutaneous flap reconstruction, and will be the team involved in performing the procedure if it is deemed that the patient is a suitable candidate. This will also depend upon the patient's decision to proceed with major surgical reconstruction. For now, the patient prefers to continue with conservative treatment measures, which are being rendered at our facility. The patient is very equivocal about whether to proceed with the procedure, given its stated morbidities and lengthy recovery process. The patient is to return in 2 weeks for reassessment. At this juncture, we are noting slow but progressive improvement with conservative treatment measures. Influenza vaccine was not administered today. The patient is not a smoker. She stands 5 feet 7 inches tall. She weighs 198 pounds. Her BMI is 31, which places her in a class I weight category. Weight loss has been recommended. She is to collaborate with her primary care physician in this regard.
== END 2019-06-08 23:59 ==
LOC: WC 08:30
PROVIDERS: Family Provider Family Medicine; PCP Family Medicine; Referring Provider Surgery; Visit Provider Surgery
DX: L59.8 Other specified disorders of the skin and subcutaneous tissue related to radiation (principal); L98.492 Non-pressure chronic ulcer of skin of other sites with fat layer exposed; E78.5 Hyperlipidemia, unspecified; K21.9 Gastro-esophageal reflux disease without esophagitis; Y84.2 Radiological procedure and radiotherapy as the cause of abnormal reaction of the patient, or of later complication, without mention of misadventure at the time of the procedure; Z89.619 Acquired absence of unspecified leg above knee; E66.9 Obesity, unspecified; Z85.42 Personal history of malignant neoplasm of other parts of uterus; Z85.820 Personal history of malignant melanoma of skin; Z86.14 Personal history of Methicillin resistant Staphylococcus aureus infection
CPT/HCPCS: 11042

== ENCOUNTER 2019-07-09 09:00 | Outpatient (RCR) | payer OTHER, SELFPAY ==
[2019-06-09 00:28] VITALS: BP 145/85; PULSE 91; RESP 18; TEMP 36.6
[2019-06-10 14:24] VITALS: BP 138/81; PULSE 85; RESP 16; TEMP 35.5; BMI 68.3
[2019-06-10 15:04] VITALS: BMI 68.3
--- NOTE | 2019-06-10 15:04 | HP.PCM_ITS ---
(1) History of uterine cancer Status: Chronic Current Visit: No Code(s): Z85.42 - Personal history of malignant neoplasm of other parts of uterus (2) History of melanoma Status: Chronic Current Visit: Yes Code(s): Z85.820 - Personal history of malignant melanoma of skin (3) Hyperlipidemia Status: Chronic Current Visit: No Code(s): E78.5 - Hyperlipidemia, unspecified (4) GERD (gastroesophageal reflux disease) Status: Chronic Current Visit: No Code(s): K21.9 - Gastro-esophageal reflux disease without esophagitis (5) Ulcer of right groin Status: Chronic Current Visit: Yes Qualifiers: Non-pressure ulcer stage: with fat layer exposed Code(s): L98.499 - Non-pressure chronic ulcer of skin of other sites with unspecified severity (6) Obesity (BMI 30.0-34.9) Status: Chronic Current Visit: No Code(s): E66.9 - Obesity, unspecified (7) Amputee, above knee Status: Chronic Current Visit: Yes Code(s): Z89.619 - Acquired absence of unspecified leg above knee (8) Soft tissue radionecrosis Status: Chronic Current Visit: Yes Code(s): L59.8 - Other specified disorders of the skin and subcutaneous tissue related to radiation; Y84.2 - Radiological procedure and radiotherapy as the cause of abnormal reaction of the patient, or of later complication, without mention of misadventure at the time of the procedure (9) soft tissue radiation injury Status: Chronic Current Visit: Yes History of Present Illness Date of Service: 06/10/19 Chief Complaint: 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 The patient underwent excision of her melanoma with lymphadenectomy in the right groin. She also underwent lengthy radiation treatments at the [facility] in [place], [place]. Melanoma recurred, and the patient was subsequently treated with monoclonal antibodies in 1984. 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 Treatment included local ulcer care and hyperbaric oxygen therapy. She underwent a total of nearly 90 treatments of hyperbaric oxygen therapy. It is known that she tolerated the therapies well, and derived significant benefit. She relates no history of claustrophobia, or other complications related to the hyperbaric oxygen therapy treatments. She has no history of barotrauma to lungs, ears, etc. Her medical history reveals no evidence of contraindications to hyperbaric oxygen therapy. The patient's current course of management includes a total of 90 sessions of hyperbaric oxygen therapy, which have been completed without total healing of the patient's right groin ulceration. EpiFix allografts have also been used for a series of 10 applications, without total healing. It appears as though the patient's current clinical course is mimicking that of the past, with wound healing which is very recalcitrant to conventional, conservative treatment measures. 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 She has undergone excision of melanoma from the right calf, with lymphadenectomy of the right groin in the 1969's. She subsequently required surgeries of the right thigh related to osteomyelitis, MRSA infection, and radiation injury to the right femoral artery. Ultimately, the patient required right above-knee amputation, performed in 2000. She also has a remote history of open reduction and internal fixation of a right ankle fracture. Allergies/Adverse Reactions: Allergies No Known Allergies Allergy (Verified 06/20/17 09:22) Home Medications: Ambulatory Orders Medication Instructions Recorded Famotidine 20 mg PO 06/20/17 Pravastatin [Pravachol] 20 mg PO DAILY 06/20/17 - Family History Maternal - - The patient's mother is 98 years of age and relatively healthy. The patient's father at age of 79 with a history of cardiomyopathy. Smoking Status: Former smoker Tobacco Use: Non-smoker Review of Systems Constitutional: Denies: Chills, Fever, Weight Change Eyes: Denies: Pain, Vision Change HEENT: Denies: Difficulty Hearing, Difficulty Swallowing, Sinus Congestion Cardiovascular: Denies: Chest Pain, Palpitations Respiratory: Denies: Cough, Shortness of Breath Gastrointestinal: Denies: Diarrhea, Nausea, Vomiting Genitourinary: Denies: Dysuria, Hematuria Endocrine: Denies: Heat/ Cold Intolerance, Polydipsia, Polyuria Hematologic/ Lymphatic: Denies: Easy Bruising, Easy Bleeding - Physical Exam Vital Signs Temp Pulse Resp BP 95.9 F L 85 16 138/81 H 06/10/19 14:24 06/10/19 14:24 06/10/19 14:24 06/10/19 14:24 General: Alert, Oriented x3, Cooperative, No apparent distress, Well developed, Well nourished HEENT: Atraumatic, PERRLA, EOMI, Normocephalic Oral: Moist Mucosa Neck: No JVD Lungs: Normal air movement Abdomen: Non-Distended Extremities: No clubbing, No cyanosis, No edema, No Calf Tenderness, - - A well- healed right above-knee amputation stump is noted. The ulceration in the right groin persists, but is much smaller in size. There is only a small amount of bioburden and nonviable tissue. There is no sign of infection or cellulitis. Dimensions are documented elsewhere, but the duration is much more superficial and smaller in dimensions than noted previously. Skin: No rashes Wound Measurements and Assessment WC - Nurse 1 - General Ulcer Measurement Start: 06/10/19 14:24 Freq: Status: Active Protocol: Activity Type Activity Date Activity User E-Sign Co-Sign Detail Recorded Client Recorded Date Recorded By Document 06/10/19 14:24 MW [id number] 06/10/19 14:34 MW 06/10/19 14:24 Wound Center Nurse 1 [Ulcer Assessment] #5 R Groin -Combined with other wound No -Current Size (cm) - Length 2.0 -Current Size (cm) - Width 0.5 -Current Size (cm) - Depth 0.3 -Total Square Cm 1.00 -Date of Last Picture (Recall this 06/10/19 field) -Photo Taken Yes -Epithelialization None Present -Tunneling No -Undermining/Tunneling No -Circular Undermining No -Exudate Amt Small -Exudate Type Serosanguineous -Wound Margin Distinct, Outline Attached -Granulation Amt Medium (34-66%) -Granulation Quality [place] -Necrosis Amt Small (1-33%) -Necrotic Tissue Type Adherent Slough -Structure Exposed N/A -Texture (Blanche-wound Skin Appearance) Assessed, Scarring -Moisture (Blanche-wound Skin Appearance No Abnormality, ) Assessed -Color (Blanche-wound Skin Appearance) No Abnormality, Assessed -Temperature ([place]-wound Skin No Abnormality Appearance) (Pt Warm) -Tenderness on Palpation (Blanche-wound Yes Skin Appearance) -Ulcer Cleansing Rinsed/ Irrigated with Saline -Foul Odor after Cleansing No -Anesthetic Used 4% Lidocaine Solution [Edema Assessment] -Lower Limb Edema Present No WC - Nurse 2 - General Ulcer CM Notes Start: 06/10/19 14:24 Freq: Status: Active Protocol: Activity Type Activity Date Activity User E-Sign Co-Sign Detail Recorded Client Recorded Date Recorded By Document 06/10/19 15:00 DV [id number] 06/10/19 15:01 DV 06/10/19 15:00 Wound Center Nurse 2 [Procedure/Treatment] #5 R Groin -Time 15:00 -Correct Patient Yes -Correct Side, Site, Position Yes -Correct Procedure Yes -Procedure Performed Yes -Type of Procedure Debridement -Clinical Debridement Subcutaneous -Post Debridement Size (cm) - Length 2.1 -Post Debridement Size (cm) - Width 0.5 -Post Debridement Size (cm) - Depth 0.3 -Total Square Cm 1.05 -Wound/Ulcer Outcome Not Healed -Ulcer Cleansing Rinsed/ Irrigated with Saline -Foul Odor after Cleansing No -Bioengineered Tissue No -Bleeding Controlled with Pressure -Treatment Response Procedure Tolerated Well [See Physician Procedure note for Specifics] Pain Scale: 0-10 Numeric [Pain] -Is Patient Pain Free? Yes Musculoskeletal: No Muscle Wasting Neurological: Cranial nerves II-XII grossly intact, Neuro grossly intact Psych/Mental Status: Normal Affect, Appropriate, Alert and oriented to time, place, person, mood and affect Debridement Note Post-Debridement Measurements/Treatment WC - Nurse 2 - General Ulcer CM Notes Start: 06/10/19 14:24 Freq: Status: Active Protocol: Activity Type Activity Date Activity User E-Sign Co-Sign Detail Recorded Client Recorded Date Recorded By Document 06/10/19 15:00 DV [id number] 06/10/19 15:01 DV 06/10/19 15:00 Wound Center Nurse 2 #5 R Groin -Time 15:00 -Correct Patient Yes -Correct Side, Site, Position Yes -Correct Procedure Yes -Procedure Performed Yes -Type of Procedure Debridement -Clinical Debridement Subcutaneous -Post Debridement Size (cm) - Length 2.1 -Post Debridement Size (cm) - Width 0.5 -Post Debridement Size (cm) - Depth 0.3 -Total Square Cm 1.05 -Wound/Ulcer Outcome Not Healed -Ulcer Cleansing Rinsed/ Irrigated with Saline -Foul Odor after Cleansing No -Bioengineered Tissue No -Bleeding Controlled with Pressure -Treatment Response Procedure Tolerated Well Pain Scale: 0-10 Numeric Is Patient Pain Free? 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 In the 1970's, she was diagnosed with malignant melanoma of the right calf, with metastasis to lymph nodes in the right groin. She underwent excision of the melanoma with right groin lymphadenectomy. She was subsequently treated with a long series of radiation treatments to the right groin. During the days of her radiation treatment, it is suspected that the radiation techniques were somewhat early in their evolution, and quite likely that the patient received massive doses of radiation exposure, exceeding doses which would be considered appropriate today, with techniques which are primitive by today's standards. As a result, the patient has developed soft tissue radiation injury, and has previously been treated at our wound center in the past with a series of approximately 90 hyperbaric oxygen therapy treatments, in 2011. She presented with recurrence of soft tissue radionecrosis in the right groin. Hyperbaric oxygen therapy treatments were initiated, and the patient has undergone a series of 90 additional hyperbaric oxygen treatment sessions. She has shown mild benefit from the hyperbaric oxyge n treatments. At this time, there is no clinical evidence of infection or cellulitis in the blanche-ulcer area. However, the patient is responding very slowly to the variety of conventional treatment measures which have been implemented. In review of the patient's past history, each treatment course has been rather protracted in terms of healing. The patient was previously referred for consultation at [facility] (Dr. Harding), which had been arranged by our facility. Medical records related to the patient's visit at [facility] resulted in no significant new recommendations for treatment or management. The patient remains on a well- balanced diet. Given that little progress has been made in recent months, I have contacted and spoken by phone with the Transport Rn of the [facility], Dr. Bassam Alas. Dr. Alas has been very helpful. He has conferred with his colleague, Plastic Surgeon Dr. Cassius Whitman. Dr. Whitman has indicated his willingness to evaluate the patient, and the patient has now been evaluated by Dr. Frausto recently. The patient was very impressed with her interaction with the plastic surgeon. A number of options were discussed. Dr. Frausto has proposed a rectus abdominis myocutaneous flap. As a prelude to flap reconstruction, the patient underwent a CT angiogram at [facility] on December 13, 2018. She met with Dr. Frausto later that same day. The patient relates that the nature of the surgical procedure, and the recovery phase, has been described in detail, and it is anticipated to be quite challenging and lengthy. It is anticipated that her surgical procedure will be scheduled at some point in the future, though the patient wishes to consider all options prior to making a firm commitment to surgical intervention. She has most recently been evaluated by a splicer operator at [facility], who had further regulations regarding the patient's expectations for recovery from major surgical intervention. The patient is yet to make a commitment to undergoing major surgery and management of her right groin ulceration. Until that occurs, the patient will follow-up in the Wound Center, and will return in 2 weeks for reassessment. The patient has also met with the vascular surgeon at [facility], Dr. Ganga Tong. Once again, the patient has been left with the impression that any surgery to reconstruct the area in the right groin could be fraught with complications and a lengthy recovery. This has given the patient pause and reason for concern, and she is to continue considering all options. Plan: The patient has been the recipient of 10 EpiFix applications. A request for preauthorization of PuraPly was denied. A series of 90 hyperbaric oxygen therapy sessions have also been completed. Attempts at preauthorization of negative pressure wound therapy have also been denied. We have used a series of [place] allografts. For now, we are to continue the use of Mary topically. Requests for preauthorization of advanced therapies have been repeatedly denied. The patient is to continue with a nutritious diet. Biopsies of the ulceration have been obtained, and the results were negative for malignancy. The patient has been evaluated by Plastic Surgeon, Dr. Cassius Whitman, at [facility], and a team of other medical providers at [facility]. It is anticipated that the patient may undergo a rectus abdominis myocutaneous flap reconstruction in the future, and is giving consideration to all aspects related to this option. She has been given understanding that the procedure is a big ordeal, and a lengthy recovery and rehabilitation will likely follow. She has seen a general surgeon at [facility] (Dr. Nunez), and vascular surgeon Dr. Ganga Tong. This multidisciplinary team of surgeons will determine the patient's candidacy for major myocutaneous flap reconstruction, and will be the team involved in performing the procedure if it is deemed that the patient is a suitable candidate. This will also depend upon the patient's decision to proceed with major surgical reconstruction. For now, the patient prefers to continue with conservative treatment measures, which are being rendered at our facility. The patient is very equivocal about whether to proceed with the procedure, given its stated morbidities and lengthy recovery process. At this juncture, there has been significant improvement in recent weeks using conservative treatment measures. The patient is to return in 2 weeks for reassessment. At this juncture, we are noting slow but progressive improvement with conservative treatment measures. Influenza vaccine was not administered today. The patient is not a smoker. She stands 5 feet 7 inches tall. She weighs 198 pounds. Her BMI is 31, which places her in a class I weight category. Weight loss has been recommended. She is to collaborate with her primary care physician in this regard.
[2019-06-25 08:34] VITALS: BP 151/90; PULSE 95; RESP 18; BMI 68.3
--- NOTE | 2019-06-25 09:00 | PCM.WC.HP ---
(1) History of uterine cancer Status: Chronic Current Visit: No Code(s): Z85.42 - Personal history of malignant neoplasm of other parts of uterus (2) History of melanoma Status: Chronic Current Visit: Yes Code(s): Z85.820 - Personal history of malignant melanoma of skin (3) Hyperlipidemia Status: Chronic Current Visit: No Code(s): E78.5 - Hyperlipidemia, unspecified (4) GERD (gastroesophageal reflux disease) Status: Chronic Current Visit: No Code(s): K21.9 - Gastro-esophageal reflux disease without esophagitis (5) Ulcer of right groin Status: Chronic Current Visit: Yes Qualifiers: Non-pressure ulcer stage: with fat layer exposed Code(s): L98.499 - Non-pressure chronic ulcer of skin of other sites with unspecified severity (6) Obesity (BMI 30.0-34.9) Status: Chronic Current Visit: No Code(s): E66.9 - Obesity, unspecified (7) Amputee, above knee Status: Chronic Current Visit: Yes Code(s): Z89.619 - Acquired absence of unspecified leg above knee (8) Soft tissue radionecrosis Status: Chronic Current Visit: Yes Code(s): L59.8 - Other specified disorders of the skin and subcutaneous tissue related to radiation; Y84.2 - Radiological procedure and radiotherapy as the cause of abnormal reaction of the patient, or of later complication, without mention of misadventure at the time of the procedure (9) soft tissue radiation injury Status: Chronic Current Visit: Yes History of Present Illness Date of Service: 06/25/19 Chief Complaint: 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 The patient underwent excision of her melanoma with lymphadenectomy in the right groin. She also underwent lengthy radiation treatments at the [facility] in [place], [place]. Melanoma recurred, and the patient was subsequently treated with monoclonal antibodies in 1984. 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 Treatment included local ulcer care and hyperbaric oxygen therapy. She underwent a total of nearly 90 treatments of hyperbaric oxygen therapy. It is known that she tolerated the therapies well, and derived significant benefit. She relates no history of claustrophobia, or other complications related to the hyperbaric oxygen therapy treatments. She has no history of barotrauma to lungs, ears, etc. Her medical history reveals no evidence of contraindications to hyperbaric oxygen therapy. The patient's current course of management includes a total of 90 sessions of hyperbaric oxygen therapy, which have been completed without total healing of the patient's right groin ulceration. EpiFix allografts have also been used for a series of 10 applications, without total healing. It appears as though the patient's current clinical course is mimicking that of the past, with wound healing which is very recalcitrant to conventional, conservative treatment measures. 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 She has undergone excision of melanoma from the right calf, with lymphadenectomy of the right groin in the 1969's. She subsequently required surgeries of the right thigh related to osteomyelitis, MRSA infection, and radiation injury to the right femoral artery. Ultimately, the patient required right above-knee amputation, performed in 2000. She also has a remote history of open reduction and internal fixation of a right ankle fracture. Allergies/Adverse Reactions: Allergies No Known Allergies Allergy (Verified 06/20/17 09:22) Home Medications: Ambulatory Orders Medication Instructions Recorded Famotidine 20 mg PO 06/20/17 Pravastatin [Pravachol] 20 mg PO DAILY 06/20/17 - Family History Maternal - - The patient's mother is 98 years of age and relatively healthy. The patient's father at age of 79 with a history of cardiomyopathy. Smoking Status: Former smoker Tobacco Use: Non-smoker Review of Systems Constitutional: Denies: Chills, Fever, Weight Change Eyes: Denies: Pain, Vision Change HEENT: Denies: Difficulty Hearing, Difficulty Swallowing, Sinus Congestion Cardiovascular: Denies: Chest Pain, Palpitations Respiratory: Denies: Cough, Shortness of Breath Gastrointestinal: Denies: Diarrhea, Nausea, Vomiting Genitourinary: Denies: Dysuria, Hematuria Endocrine: Denies: Heat/ Cold Intolerance, Polydipsia, Polyuria Hematologic/ Lymphatic: Denies: Easy Bruising, Easy Bleeding - Physical Exam Vital Signs Temp Pulse Resp BP 95.9 F L 95 18 151/90 H 06/10/19 14:24 06/25/19 08:34 06/25/19 08:34 06/25/19 08:34 General: Alert, Oriented x3, Cooperative, No apparent distress, Well developed, Well nourished HEENT: Atraumatic, PERRLA, EOMI, Normocephalic Oral: Moist Mucosa Neck: No JVD Lungs: Normal air movement Abdomen: Non-Distended Extremities: No clubbing, No cyanosis, No edema, No Calf Tenderness, - - A well-healed right above-knee imitation stump is noted. The ulceration on the right groin persists, but appears to be diminishing in size. Dimensions are documented elsewhere. There is a small amount of bioburden. There is no sign of infection or cellulitis. Skin: No rashes Wound Measurements and Assessment WC - Nurse 1 - General Ulcer Measurement Start: 06/10/19 14:24 Freq: Status: Active Protocol: Activity Type Activity Date Activity User E-Sign Co-Sign Detail Recorded Client Recorded Date Recorded By Document 06/25/19 08:34 [id number] 06/25/19 08:42 DL 06/25/19 08:34 Wound Center Nurse 1 [Ulcer Assessment] #5 R Groin -Current Size (cm) - Length 1 -Current Size (cm) - Width 0.2 -Current Size (cm) - Depth 0.2 -Total Square Cm 0.2 -Photo Taken No -Exudate Amt None Present -Wound Margin Thickened -Granulation Amt Small (1-33%) -Granulation Quality Klemme -Necrosis Amt None Present (0 %) -Structure Exposed N/A -Texture (Blanche-wound Skin Appearance) Scarring -Moisture (Blanche-wound Skin Appearance No Abnormality ) -Color (Blanche-wound Skin Appearance) No Abnormality -Temperature (Blanche-wound Skin No Abnormality Appearance) (Pt Warm) -Tenderness on Palpation (Blanche-wound No Skin Appearance) -Ulcer Cleansing Rinsed/ Irrigated with Saline -Foul Odor after Cleansing No -Anesthetic Used 5% Lidocaine Gel - Nurse 2 - General Ulcer CM Notes Start: 06/10/19 14:24 Freq: Status: Active Protocol: Activity Type Activity Date Activity User E-Sign Co-Sign Detail Recorded Client Recorded Date Recorded By Document 06/25/19 08:55 DV [id number] 06/25/19 09:00 DV 06/25/19 08:55 Wound Center Nurse 2 [Procedure/Treatment] -Time 08:56 -Correct Patient Yes -Correct Side, Site, Position Yes -Correct Procedure Yes -Procedure Performed Yes -Type of Procedure Debridement -Clinical Debridement Subcutaneous -Post Debridement Size (cm) - Length 2.1 -Post Debridement Size (cm) - Width 0.2 -Post Debridement Size (cm) - Depth 0.2 -Total Square Cm 0.42 -Wound/Ulcer Outcome Not Healed -Ulcer Cleansing Rinsed/ Irrigated with Saline -Foul Odor after Cleansing No -Bioengineered Tissue No -Bleeding Controlled with Pressure -Offloading No -Treatment Response Procedure Tolerated Well [See Physician Procedure note for Specifics] Pain Scale: 0-10 Numeric [Pain] -Is Patient Pain Free? Yes Musculoskeletal: No Muscle Wasting Neurological: Cranial nerves II-XII grossly intact, Neuro grossly intact Psych/Mental Status: Normal Affect, Appropriate, Alert and oriented to time, place, person, mood and affect Debridement Note Post-Debridement Measurements/Treatment - Nurse 2 - General Ulcer CM Notes Start: 06/10/19 14:24 Freq: Status: Active Protocol: Activity Type Activity Date Activity User E-Sign Co-Sign Detail Recorded Client Recorded Date Recorded By Document 06/10/19 15:00 DV [id number] 06/10/19 15:01 DV Document 06/25/19 08:55 DV [id number] 06/25/19 09:00 DV 06/10/19 06/25/19 15:00 08:55 Wound Center Nurse 2 #5 R Groin -Time 15:00 08:56 -Correct Patient Yes Yes -Correct Side, Site, Position Yes Yes -Correct Procedure Yes Yes -Procedure Performed Yes Yes -Type of Procedure Debridement Debridement -Clinical Debridement Subcutaneous Subcutaneous -Post Debridement Size (cm) - Length 2.1 2.1 -Post Debridement Size (cm) - Width 0.5 0.2 -Post Debridement Size (cm) - Depth 0.3 0.2 -Total Square Cm 1.05 0.42 -Wound/Ulcer Outcome Not Healed Not Healed -Ulcer Cleansing Rinsed/ Rinsed/ Irrigated with Irrigated with Saline Saline -Foul Odor after Cleansing No No -Bioengineered Tissue No No -Bleeding Controlled with Pressure Pressure -Offloading No -Treatment Response Procedure Procedure Tolerated Well Tolerated Well Pain Scale: 0-10 Numeric Is Patient Pain Free? 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 In the 1970's, she was diagnosed with malignant melanoma of the right calf, with metastasis to lymph nodes in the right groin. She underwent excision of the melanoma with right groin lymphadenectomy. She was subsequently treated with a long series of radiation treatments to the right groin. During the days of her radiation treatment, it is suspected that the radiation techniques were somewhat early in their evolution, and quite likely that the patient received massive doses of radiation exposure, exceeding doses which would be considered appropriate today, with techniques which are primitive by today's standards. As a result, the patient has developed soft tissue radiation injury, and has previously been treated at our wound center in the past with a series of approximately 90 hyperbaric oxygen therapy treatments, in 2011. She presented with recurrence of soft tissue radionecrosis in the right groin. Hyperbaric oxygen therapy treatments were initiated, and the patient has undergone a series of 90 additional hyperbaric oxygen treatment sessions. She has shown mild benefit from the hyperbaric oxygen treatments. At this time, there is no clinical evidence of infection or cellulitis in the blanche-ulcer area. However, the patient is responding very slowly to the variety of conventional treatment measures which have been implemented. In review of the patient's past history, each treatment course has been rather protracted in terms of healing. The patient was previously referred for consultation at [facility] (Dr. Harding), which had been arranged by our facility. Medical records related to the patient's visit at [facility] resulted in no significant new recommendations for treatment or management. The patient remains on a well-balanced diet. Given that little progress has been made in recent months, I have contacted and spoken by phone with the [employer] [facility] [facility], Dr. Bassam Alas. Dr. Alas has been very helpful. He has conferred with his colleague, Plastic Surgeon Dr. Cassius Whitman. Dr. Whitman has indicated his willingness to evaluate the patient, and the patient has now been evaluated by Dr. Frausto recently. The patient was very impressed with her interaction with the plastic surgeon. A number of options were discussed. Dr. Frausto has proposed a rectus abdominis myocutaneous flap. As a prelude to flap reconstruction, the patient underwent a CT angiogram at [facility] on December 13, 2018. She met with Dr. Frausto later that same day. The patient relates that the nature of the surgical procedure, and the recovery phase, has been described in detail, and it is anticipated to be quite challenging and lengthy. It is anticipated that her surgical procedure will be scheduled at some point in the future, though the patient wishes to consider all options prior to making a firm commitment to surgical intervention. She has most recently been evaluated by a gear inspector at [facility], who had further regulations regarding the patient's expectations for recovery from major surgical intervention. The patient is yet to make a commitment to undergoing major surgery and management of her right groin ulceration. Until that occurs, the patient will follow-up in the Wound Center, and will return in 2 weeks for reassessment. The patient has also met with the vascular surgeon at [facility], Dr. Ganga Tong. Once again, the patient has been left with the impression that any surgery to reconstruct the area in the right groin could be fraught with complications and a lengthy recovery. This has given the patient pause and reason for concern, and she is to continue considering all options. Plan: The patient has been the recipient of 10 EpiFix applications. A request for preauthorization of PuraPly was denied. A series of 90 hyperbaric oxygen therapy sessions have also been completed. Attempts at preauthorization of negative pressure wound therapy have also been denied. We have used a series of Meadow allografts. For now, we are to continue the use of Mary topically. Requests for preauthorization of advanced therapies have been repeatedly denied. The patient is to continue with a nutritious diet. Biopsies of the ulceration have been obtained, and the results were negative for malignancy. The patient has been evaluated by Plastic Surgeon, Dr. Cassius Whitman, at [facility], and a team of other medical providers at [facility]. It is anticipated that the patient may undergo a rectus abdominis myocutaneous flap reconstruction in the future, and is giving consideration to all aspects related to this option. She has been given understanding that the procedure is a big ordeal, and a lengthy recovery and rehabilitation will likely follow. She has seen a general surgeon at [facility] (Dr. Nunez), and vascular surgeon Dr. Ganga Tong. This multidisciplinary team of surgeons will determine the patient's candidacy for major myocutaneous flap reconstruction, and will be the team involved in performing the procedure if it is deemed that the patient is a suitable candidate. This will also depend upon the patient's decision to proceed with major surgical reconstruction. For now, the patient prefers to continue with conservative treatment measures, which are being rendered at our facility. The patient is very equivocal about whether to proceed with the procedure, given its stated morbidities and lengthy recovery process. At this juncture, there continues to be significant improvement using conservative treatment measures. The patient is to return in 2 weeks for reassessment. At this juncture, we are noting slow but progressive improvement with conservative treatment measures. Influenza vaccine was not administered today. The patient is not a smoker. She stands 5 feet 7 inches tall. She weighs 198 pounds. Her BMI is 31, which places her in a class I weight category. Weight loss has been recommended. She is to collaborate with her primary care physician in this regard.
[2019-07-09 09:05] VITALS: BP 148/65; PULSE 86; RESP 18; TEMP 37.1; BMI 68.3
--- NOTE | 2019-07-09 10:42 | HP.PCM_ITS ---
(1) History of uterine cancer Status: Chronic Current Visit: No Code(s): Z85.42 - Personal history of malignant neoplasm of other parts of uterus (2) History of melanoma Status: Chronic Current Visit: Yes Code(s): Z85.820 - Personal history of malignant melanoma of skin (3) Hyperlipidemia Status: Chronic Current Visit: No Code(s): E78.5 - Hyperlipidemia, unspecified (4) GERD (gastroesophageal reflux disease) Status: Chronic Current Visit: No Code(s): K21.9 - Gastro-esophageal reflux disease without esophagitis (5) Ulcer of right groin Status: Chronic Current Visit: Yes Qualifiers: Non-pressure ulcer stage: with fat layer exposed Code(s): L98.499 - Non-pressure chronic ulcer of skin of other sites with unspecified severity (6) Obesity (BMI 30.0-34.9) Status: Chronic Current Visit: No Code(s): E66.9 - Obesity, unspecified (7) Amputee, above knee Status: Chronic Current Visit: Yes Code(s): Z89.619 - Acquired absence of unspecified leg above knee (8) Soft tissue radionecrosis Status: Chronic Current Visit: Yes Code(s): L59.8 - Other specified disorders of the skin and subcutaneous tissue related to radiation; Y84.2 - Radiological procedure and radiotherapy as the cause of abnormal reaction of the patient, or of later complication, without mention of misadventure at the time of the procedure (9) soft tissue radiation injury Status: Chronic Current Visit: Yes History of Present Illness Date of Service: 07/09/19 Chief Complaint: 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 The patient underwent excision of her melanoma with lymphadenectomy in the right groin. She also underwent lengthy radiation treatments at the [facility] in [place], [place]. Melanoma recurred, and the patient was subsequently treated with monoclonal antibodies in 1984. 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 Treatment included local ulcer care and hyperbaric oxygen therapy. She underwent a total of nearly 90 treatments of hyperbaric oxygen therapy. It is known that she tolerated the therapies well, and derived significant benefit. She relates no history of claustrophobia, or other complications related to the hyperbaric oxygen therapy treatments. She has no history of barotrauma to lungs, ears, etc. Her medical history reveals no evidence of contraindications to hyperbaric oxygen therapy. The patient's current course of management includes a total of 90 sessions of hyperbaric oxygen therapy, which have been completed without total healing of the patient's right groin ulceration. EpiFix allografts have also been used for a series of 10 applications, without total healing. It appears as though the patient's current clinical course is mimicking that of the past, with wound healing which is very recalcitrant to conventional, conservative treatment measures. 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 She has undergone excision of melanoma from the right calf, with lymphadenectomy of the right groin in the 1969's. She subsequently required surgeries of the right thigh related to osteomyelitis, MRSA infection, and radiation injury to the right femoral artery. Ultimately, the patient required right above-knee amputation, performed in 2000. She also has a remote history of open reduction and internal fixation of a right ankle fracture. Allergies/Adverse Reactions: Allergies No Known Allergies Allergy (Verified 06/20/17 09:22) Home Medications: Ambulatory Orders Medication Instructions Recorded Famotidine 20 mg PO 06/20/17 Pravastatin [Pravachol] 20 mg PO DAILY 06/20/17 - Family History Maternal - - The patient's mother is 98 years of age and relatively healthy. The patient's father at age of 79 with a history of cardiomyopathy. Smoking Status: Former smoker Tobacco Use: Non-smoker Review of Systems Constitutional: Denies: Chills, Fever, Weight Change Eyes: Denies: Pain, Vision Change HEENT: Denies: Difficulty Hearing, Difficulty Swallowing, Sinus Congestion Cardiovascular: Denies: Chest Pain, Palpitations Respiratory: Denies: Cough, Shortness of Breath Gastrointestinal: Denies: Diarrhea, Nausea, Vomiting Genitourinary: Denies: Dysuria, Hematuria Endocrine: Denies: Heat/ Cold Intolerance, Polydipsia, Polyuria Hematologic/ Lymphatic: Denies: Easy Bruising, Easy Bleeding - Physical Exam Vital Signs Temp Pulse Resp BP 98.8 F 86 18 148/65 H 07/09/19 09:05 07/09/19 09:05 07/09/19 09:05 07/09/19 09:05 General: Alert, Oriented x3, Cooperative, No apparent distress, Well developed, Well nourished HEENT: Atraumatic, PERRLA, EOMI, Normocephalic Oral: Moist Mucosa Neck: No JVD Lungs: Normal air movement Abdomen: Non-Distended Extremities: No clubbing, No cyanosis, No edema, No Calf Tenderness, - - A well- healed right above-knee amputation stump is noted. The patient's ulceration in the right groin now appears to be fully epithelialized. There is depression at the site, but the depths of the area appear to demonstrate epithelium, suggesting total healing. There is slight erythema, suspected to be slight maceration from the moistened Mary which has been used topically. There is a hint of ecchymosis in the area, related to the patient's recent fall. Wound Measurements and Assessment WC - Nurse 1 - General Ulcer Measurement Start: 06/10/19 14:24 Freq: Status: Active Protocol: Activity Type Activity Date Activity User E-Sign Co-Sign Detail Recorded Client Recorded Date Recorded By Document 07/09/19 09:05 [facility] [id number] 07/09/19 09:10 [facility] 07/09/19 09:05 Wound Center Nurse 1 [Ulcer Assessment] #5 R Groin -Combined with other wound No -Current Size (cm) - Length 1.5 -Current Size (cm) - Width 0.3 -Current Size (cm) - Depth 0.2 -Total Square Cm 0.45 -Photo Taken No -Tunneling No -Undermining/Tunneling No -Circular Undermining No -Exudate Amt Small -Exudate Type Serous -Wound Margin Distinct, Outline Attached -Granulation Amt Medium (34-66%) -Granulation Quality Red -Slough/Fibrin Yes -Necrosis Amt Small (1-33%) -Necrotic Tissue Type Adherent Slough -Texture (Blanhce-wound Skin Appearance) Assessed, Scarring -Moisture (Blanche-wound Skin Appearance Assessed ) -Color (Blanche-wound Skin Appearance) Assessed -Temperature (Blanche-wound Skin No Abnormality Appearance) (Pt Warm) -Tenderness on Palpation (Blanche-wound No Skin Appearance) -Ulcer Cleansing Rinsed/ Irrigated with Saline -Foul Odor after Cleansing No -Anesthetic Used 5% Lidocaine Gel WC - Nurse 2 - General Ulcer CM Notes Start: 06/10/19 14:24 Freq: Status: Active Protocol: Activity Type Activity Date Activity User E-Sign Co-Sign Detail Recorded Client Recorded Date Recorded By Document 07/09/19 10:36 DV [id number] 07/09/19 10:39 DV 07/09/19 10:36 Wound Center Nurse 2 [Procedure/Treatment] -Time 10:36 -Correct Patient Yes -Correct Side, Site, Position Yes -Correct Procedure No -Procedure Performed No -Post Debridement Size (cm) - Length 0 -Post Debridement Size (cm) - Width 0 -Post Debridement Size (cm) - Depth 0 -Total Square Cm 0 -Wound/Ulcer Outcome Healed- Epithelialized [See Physician Procedure note for Specifics] Pain Scale: 0-10 Numeric [Pain] -Is Patient Pain Free? Yes Musculoskeletal: No Muscle Wasting Neurological: Cranial nerves II-XII grossly intact, Neuro grossly intact Psych/Mental Status: Normal Affect, Appropriate, Alert and oriented to time, place, person, mood and affect Debridement Note Post-Debridement Measurements/Treatment WC - Nurse 2 - General Ulcer CM Notes Start: 06/10/19 14:24 Freq: Status: Active Protocol: Activity Type Activity Date Activity User E-Sign Co-Sign Detail Recorded Client Recorded Date Recorded By Document 06/10/19 15:00 DV [id number] 06/10/19 15:01 DV Document 06/25/19 08:55 DV [id number] 06/25/19 09:00 DV Document 07/09/19 10:36 DV [id number] 07/09/19 10:39 DV 06/10/19 06/25/19 07/09/19 15:00 08:55 10:36 Wound Center Nurse 2 #5 R Groin -Time 15:00 08:56 10:36 -Correct Patient Yes Yes Yes -Correct Side, Site, Position Yes Yes Yes -Correct Procedure Yes Yes No -Procedure Performed Yes Yes No -Type of Procedure Debridement Debridement -Clinical Debridement Subcutaneous Subcutaneous -Post Debridement Size (cm) - Length 2.1 2.1 0 -Post Debridement Size (cm) - Width 0.5 0.2 0 -Post Debridement Size (cm) - Depth 0.3 0.2 0 -Total Square Cm 1.05 0.42 0 -Wound/Ulcer Outcome Not Healed Not Healed Healed- Epithelialized -Ulcer Cleansing Rinsed/ Rinsed/ Irrigated with Irrigated with Saline Saline -Foul Odor after Cleansing No No -Bioengineered Tissue No No -Bleeding Controlled with Pressure Pressure -Offloading No -Treatment Response Procedure Procedure Tolerated Well Tolerated Well Pain Scale: 0-10 Numeric Is Patient Pain Free? Yes Yes Yes No debridement was completed today - The patient's right groin ulceration appears to be completely epithelialized. Assessment/Plan Active Problems History of melanoma (Chronic) Ulcer of right groin (Chronic) Amputee, above knee (Chronic) 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 In the 1970's, she was diagnosed with malignant melanoma of the right calf, with metastasis to lymph nodes in the right groin. She underwent excision of the melanoma with right groin lymphadenectomy. She was subsequently treated with a long series of radiation treatments to the right groin. During the days of her radiation treatment, it is suspected that the radiation techniques were somewhat early in their evolution, and quite likely that the patient received massive doses of radiation exposure, exceeding doses which would be considered appropriate today, with techniques which are primitive by today's standards. As a result, the patient has developed soft tissue radiation injury, and has previously been treated at our wound center in the past with a series of approximately 90 hyperbaric oxygen therapy treatments, in 2011. She presented with recurrence of soft tissue radionecrosis in the right groin. Hyperbaric oxygen therapy treatments were initiated, and the patient has undergone a series of 90 additional hyperbaric oxygen treatment sessions. She has shown mild benefit from the hyperbaric oxygen treatments. In review of the patient's past history, each treatment course has been rather protracted in terms of healing. The patient was previously referred for consultation at [facility] (Dr. Harding), which had been arranged by our facility. Medical records related to the patient's visit at [facility] resulted in no significant new recommendations for treatment or management. The patient remains on a well-balanced diet. Given that little progress has been made in recent months, I have contacted and spoken by phone with the Perinatal Specialist of the [facility], Dr. Bassam Alas. Dr. Alas has been very helpful. He has conferred with his colleague, Plastic Surgeon Dr. Cassius Whitman. Dr. Whitman has indicated his willingness to evaluate the patient, and the patient has now been evaluated by Dr. Frausto recently. The patient was very impressed with her interaction with the plastic surgeon. A number of options were discussed. Dr. Frausto has proposed a rectus abdominis myocutaneous flap. As a prelude to flap reconstruction, the patient underwent a CT angiogram at [facility] on December 13, 2018. She met with Dr. Frausto later that same day. The patient relates that the nature of the surgical procedure, and the recovery phase, has been described in detail, and it is anticipated to be quite challenging and lengthy. The patient wishes to consider all options prior to making a firm commitment to surgical intervention. She has most recently been evaluated by a smoking pipe maker at [facility], who had further regulations regarding the patient's expectations for recovery from major surgical intervention. The patient is yet to make a commitment to undergoing major surgery and management of her right groin ulceration. The patient has also met with the vascular surgeon at [facility], Dr. Ganga Tong. Once again, the patient has been left with the impression that any surgery to reconstruct the area in the right groin could be fraught with complications and a lengthy recovery. This has given the patient pause and reason for concern, and she is to continue considering all options. At this juncture, however, the patient has demonstrated significant progress in recent weeks, and now appears to be completely healed. Plan: The patient has been the recipient of 10 EpiFix applications. A request for preauthorization of PuraPly was denied. A series of 90 hyperbaric oxygen therapy sessions have also been completed. Attempts at preauthorization of negative pressure wound therapy have also been denied. We have used a series of [place] allografts. The patient is to continue with a nutritious diet. Biopsies of the ulceration have been obtained, and the results were negative for malignancy. The patient has been evaluated by Plastic Surgeon, Dr. Cassius Whitman, at [facility], and a team of other medical providers at [facility]. It is anticipated that the patient may undergo a rectus abdominis myocutaneous flap reconstruction in the future, and is giving consideration to all aspects related to this option. She has been given understanding that the procedure is a big ordeal, and a lengthy recovery and rehabilitation will likely follow. She has seen a general surgeon at [facility] (Dr. Nunez), and vascular surgeon Dr. Ganga Tong. This multidisciplinary team of surgeons will determine the patient's candidacy for major myocutaneous flap reconstruction, and will be the team involved in performing the procedure if it is deemed that the patient is a suitable candidate. This will also depend upon the patient's decision to proceed with major surgical reconstruction. The patient is very equivocal about whether to proceed with the procedure, given its stated morbidities and lengthy recovery process. At this juncture, there continues to be significant improvement using conservative treatment measures, with evidence of complete healing at this time. We are to forego the use of any product at this time, and the patient is to maintain coverage of her right groin ulceration with dry gauze, which will be changed on a daily basis. She appears to be completely healed, a matter which will be reevaluated upon her return visit. The patient is to return in 2 weeks for reassessment. Influenza vaccine was not administered today. The patient is not a smoker. She stands 5 feet 7 inches tall. She weighs 198 pounds. Her BMI is 31, which places her in a class I weight category. Weight loss has been recommended. She is to collaborate with her primary care physician in this regard.
--- NOTE | 2019-07-09 10:47 | WC ---
gauze to healed wond. healed wond photo taken
== END 2019-07-09 23:59 ==
LOC: WC 09:00
PROVIDERS: Family Provider Family Medicine; PCP Family Medicine; Referring Provider Surgery; Visit Provider Surgery
DX: L59.8 Other specified disorders of the skin and subcutaneous tissue related to radiation (principal); Y84.2 Radiological procedure and radiotherapy as the cause of abnormal reaction of the patient, or of later complication, without mention of misadventure at the time of the procedure; E78.5 Hyperlipidemia, unspecified; K21.9 Gastro-esophageal reflux disease without esophagitis; L98.492 Non-pressure chronic ulcer of skin of other sites with fat layer exposed; E66.9 Obesity, unspecified; Z85.820 Personal history of malignant melanoma of skin; Z89.611 Acquired absence of right leg above knee; Z86.14 Personal history of Methicillin resistant Staphylococcus aureus infection; Z85.42 Personal history of malignant neoplasm of other parts of uterus; Z87.891 Personal history of nicotine dependence
CPT/HCPCS: 11042; 99212; G0463

== ENCOUNTER 2019-07-30 08:00 | Outpatient (RCR) | payer OTHER, SELFPAY ==
[2019-07-10 00:24] VITALS: BP 148/65; PULSE 86; RESP 18; TEMP 37.1
[2019-07-23 09:03] VITALS: BP 148/88; PULSE 90; RESP 18; TEMP 37; BMI 68.3
--- NOTE | 2019-07-23 09:45 | HP.PCM_ITS ---
(1) History of uterine cancer Status: Chronic Current Visit: No Code(s): Z85.42 - Personal history of malignant neoplasm of other parts of uterus (2) History of melanoma Status: Chronic Current Visit: Yes Code(s): Z85.820 - Personal history of malignant melanoma of skin (3) Hyperlipidemia Status: Chronic Current Visit: No Code(s): E78.5 - Hyperlipidemia, unspecified (4) GERD (gastroesophageal reflux disease) Status: Chronic Current Visit: No Code(s): K21.9 - Gastro-esophageal reflux disease without esophagitis (5) Ulcer of right groin Status: Chronic Current Visit: Yes Qualifiers: Non-pressure ulcer stage: with fat layer exposed Code(s): L98.499 - Non-pressure chronic ulcer of skin of other sites with unspecified severity (6) Obesity (BMI 30.0-34.9) Status: Chronic Current Visit: No Code(s): E66.9 - Obesity, unspecified (7) Amputee, above knee Status: Chronic Current Visit: Yes Code(s): Z89.619 - Acquired absence of unspecified leg above knee (8) Soft tissue radionecrosis Status: Chronic Current Visit: Yes Code(s): L59.8 - Other specified disorders of the skin and subcutaneous tissue related to radiation; Y84.2 - Radiological procedure and radiotherapy as the cause of abnormal reaction of the patient, or of later complication, without mention of misadventure at the time of the procedure (9) soft tissue radiation injury Status: Chronic Current Visit: Yes History of Present Illness Date of Service: 07/23/19 Chief Complaint: 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 The patient underwent excision of her melanoma with lymphadenectomy in the right groin. She also underwent lengthy radiation treatments at the [facility] in [place], [place]. Melanoma recurred, and the patient was subsequently treated with monoclonal antibodies in 1984. 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 Treatment included local ulcer care and hyperbaric oxygen therapy. She underwent a total of nearly 90 treatments of hyperbaric oxygen therapy. It is known that she tolerated the therapies well, and derived significant benefit. She relates no history of claustrophobia, or other complications related to the hyperbaric oxygen therapy treatments. She has no history of barotrauma to lungs, ears, etc. Her medical history reveals no evidence of contraindications to hyperbaric oxygen therapy. The patient's current course of management includes a total of 90 sessions of hyperbaric oxygen therapy, which have been completed without total healing of the patient's right groin ulceration. EpiFix allografts have also been used for a series of 10 applications, without total healing. It appears as though the patient's current clinical course is mimicking that of the past, with wound healing which is very recalcitrant to conventional, conservative treatment measures. 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 She has undergone excision of melanoma from the right calf, with lymphadenectomy of the right groin in the 1969's. She subsequently required surgeries of the right thigh related to osteomyelitis, MRSA infection, and radiation injury to the right femoral artery. Ultimately, the patient required right above-knee amputation, performed in 2000. She also has a remote history of open reduction and internal fixation of a right ankle fracture. Allergies/Adverse Reactions: Allergies No Known Allergies Allergy (Verified 06/20/17 09:22) Home Medications: Ambulatory Orders Medication Instructions Recorded Famotidine 20 mg PO 06/20/17 Pravastatin [Pravachol] 20 mg PO DAILY 06/20/17 - Family History Maternal - - The patient's mother is 98 years of age and relatively healthy. The patient's father at age of 79 with a history of cardiomyopathy. Smoking Status: Former smoker Tobacco Use: Non-smoker Review of Systems Constitutional: Denies: Chills, Fever, Weight Change Eyes: Denies: Pain, Vision Change HEENT: Denies: Difficulty Hearing, Difficulty Swallowing, Sinus Congestion Cardiovascular: Denies: Chest Pain, Palpitations Respiratory: Denies: Cough, Shortness of Breath Gastrointestinal: Denies: Diarrhea, Nausea, Vomiting Genitourinary: Denies: Dysuria, Hematuria Endocrine: Denies: Heat/ Cold Intolerance, Polydipsia, Polyuria Hematologic/ Lymphatic: Denies: Easy Bruising, Easy Bleeding - Physical Exam Vital Signs Temp Pulse Resp BP 98.6 F 90 18 148/88 H 07/23/19 09:03 07/23/19 09:03 07/23/19 09:03 07/23/19 09:03 General: Alert, Oriented x3, Cooperative, No apparent distress, Well developed, Well nourished HEENT: Atraumatic, PERRLA, EOMI, Normocephalic Oral: Moist Mucosa Neck: No JVD Lungs: Normal air movement Abdomen: Non-Distended Extremities: No clubbing, No cyanosis, No edema, No Calf Tenderness, - - A well- healed right above-knee amputation stump is noted. The patient's right groin wound, which has been chronic and longstanding, and had been recently thought to be completely healed, now has slightly reopened. There is a very small wound at the site, the dimensions of which are documented elsewhere. There is no sign of infection or cellulitis. There is a small amount of bioburden. Skin: No rashes Wound Measurements and Assessment WC - Nurse 1 - General Ulcer Measurement Start: 07/23/19 09:03 Freq: Status: Active Protocol: Activity Type Activity Date Activity User E-Sign Co-Sign Detail Recorded Client Recorded Date Recorded By Document 07/23/19 09:03 RB [id number] 07/23/19 09:13 RB 07/23/19 09:03 Wound Center Nurse 1 [Ulcer Assessment] 7. R groin -Combined with other wound No -Current Size (cm) - Length 0.4 -Current Size (cm) - Width 0.2 -Current Size (cm) - Depth 0.2 -Total Square Cm 0.08 -Photo Taken Yes -Tunneling No -Undermining/Tunneling No -Circular Undermining No -Exudate Amt Small -Exudate Type Serosanguineous -Wound Margin Flat & Intact -Granulation Amt Medium (34-66%) -Granulation Quality [place] -Slough/Fibrin Yes -Necrosis Amt Small (1-33%) -Necrotic Tissue Type Adherent Slough -Structure Exposed N/A -Texture (Blanche-wound Skin Appearance) Assessed, Scarring -Moisture (Blanche-wound Skin Appearance Assessed ) -Color (Blanche-wound Skin Appearance) Assessed -Temperature (Blanche-wound Skin No Abnormality Appearance) (Pt Warm) -Tenderness on Palpation (Blanche-wound No Skin Appearance) -Ulcer Cleansing Wound Cleanser -Foul Odor after Cleansing No -Anesthetic Used 4% Lidocaine Solution - Nurse 2 - General Ulcer CM Notes Start: 07/23/19 09:03 Freq: Status: Active Protocol: Activity Type Activity Date Activity User E-Sign Co-Sign Detail Recorded Client Recorded Date Recorded By Document 07/23/19 09:35 DV [id number] 07/23/19 09:36 DV 07/23/19 09:35 Wound Center Nurse 2 [Procedure/Treatment] -Time 09:35 -Correct Patient Yes -Correct Side, Site, Position Yes -Correct Procedure Yes -Procedure Performed Yes -Type of Procedure Debridement -Clinical Debridement Subcutaneous -Post Debridement Size (cm) - Length 0.1 -Post Debridement Size (cm) - Width 0.1 -Post Debridement Size (cm) - Depth 0.1 -Total Square Cm 0.01 -Wound/Ulcer Outcome Not Healed -Ulcer Cleansing Rinsed/ Irrigated with Saline -Foul Odor after Cleansing No -Bioengineered Tissue No -Bleeding Controlled with Pressure -Offloading No -Treatment Response Procedure Tolerated Well [See Physician Procedure note for Specifics] Pain Scale: 0-10 Numeric [Pain] -Is Patient Pain Free? Yes Musculoskeletal: No Muscle Wasting Neurological: Cranial nerves II-XII grossly intact, Neuro grossly intact Psych/Mental Status: Normal Affect, Appropriate, Alert and oriented to time, place, person, mood and affect Debridement Note Post-Debridement Measurements/Treatment - Nurse 2 - General Ulcer CM Notes Start: 07/23/19 09:03 Freq: Status: Active Protocol: Activity Type Activity Date Activity User E-Sign Co-Sign Detail Recorded Client Recorded Date Recorded By Document 07/23/19 09:35 DV [id number] 07/23/19 09:36 DV 07/23/19 09:35 Wound Center Nurse 2 7. R groin -Time 09:35 -Correct Patient Yes -Correct Side, Site, Position Yes -Correct Procedure Yes -Procedure Performed Yes -Type of Procedure Debridement -Clinical Debridement Subcutaneous -Post Debridement Size (cm) - Length 0.1 -Post Debridement Size (cm) - Width 0.1 -Post Debridement Size (cm) - Depth 0.1 -Total Square Cm 0.01 -Wound/Ulcer Outcome Not Healed -Ulcer Cleansing Rinsed/ Irrigated with Saline -Foul Odor after Cleansing No -Bioengineered Tissue No -Bleeding Controlled with Pressure -Offloading No -Treatment Response Procedure Tolerated Well Pain Scale: 0-10 Numeric Is Patient Pain Free? 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 In the 1970's, she was diagnosed with malignant melanoma of the right calf, with metastasis to lymph nodes in the right groin. She underwent excision of the melanoma with right groin lymphadenectomy. She was subsequently treated with a long series of radiation treatments to the right groin. During the days of her radiation treatment, it is suspected that the radiation techniques were somewhat early in their evolution, and quite likely that the patient received massive doses of radiation exposure, exceeding doses which would be considered appropriate today, with techniques which are primitive by today's standards. As a result, the patient has developed soft tissue radiation injury, and has previously been treated at our wound center in the past with a series of approximately 90 hyperbaric oxygen therapy treatments, in 2011. She presented with recurrence of soft tissue radionecrosis in the right groin. Hyperbaric oxygen therapy treatments were initiated, and the patient has undergone a series of 90 additional hyperbaric oxygen treatment sessions. She has shown mild benefit from the hyperbaric oxygen treatments. In review of the patient's past history, each treatment course has been rather protracted in terms of healing. The patient was previously referred for consultation at [facility] (Dr. Harding), which had been arranged by our facility. Medical records related to the patient's visit at [facility] resulted in no significant new recommendations for treatment or management. The patient remains on a well-balanced diet. Given that little progress has been made in recent months, I have contacted and spoken by phone with the Gas [employer] Cart Repairer of the [facility], Dr. Bassam Alas. Dr. Alas has been very helpful. He has conferred with his colleague, Plastic Surgeon Dr. Cassius Whitman. Dr. Whitman has indicated his willingness to evaluate the patient, and the patient has now been evaluated by Dr. Frausto recently. The patient was very impressed with her interaction with the plastic surgeon. A number of options were discussed. Dr. Frausto has proposed a rectus abdominis myocutaneous flap. As a prelude to flap reconstruction, the kirill fajardo underwent a CT angiogram at [facility] on December 13, 2018. She met with Dr. Frausto later that same day. The patient relates that the nature of the surgical procedure, and the recovery phase, has been described in detail, and it is anticipated to be quite challenging and lengthy. The patient wishes to consider all options prior to making a firm commitment to surgical in tervention. She has most recently been evaluated by a spiritual advisor at [facility], who had further regulations regarding the patient's expectations for recovery from major surgical intervention. The patient is yet to make a commitment to undergoing major surgery and management of her right groin ulceration. The patient has also met with the vascular surgeon at [facility], Dr. Ganga Tong. Once again, the patient has been left with the impression that any surgery to reconstruct the area in the right groin could be fraught with complications and a lengthy recovery. This has given the patient pause and reason for concern, and she is to continue considering all options. At this juncture, however, the patient has demonstrated significant progress in recent weeks. She had been nearly healed, but returns today with a very slight setback, and a very small open wound in the right groin. Plan: The patient has been the recipient of 10 EpiFix applications. A request for preauthorization of PuraPly was denied. A series of 90 hyperbaric oxygen therapy sessions have also been completed. Attempts at preauthorization of negative pressure wound therapy have also been denied. We have used a series of [employer] allografts. The patient is to continue with a nutritious diet. Biopsies of the ulceration have been obtained, and the results were negative for malignancy. The patient has been evaluated by Plastic Surgeon, Dr. Cassius Whitman, at [facility], and a team of other medical provi ders at [facility]. It is anticipated that the patient may undergo a rectus abdominis myocutaneous flap reconstruction in the future, and is giving consideration to all aspects related to this option. She has been given understanding that the procedure is a big ordeal, and a lengthy recovery and rehabilitation will likely follow. She has seen a general surgeon at [facility] (Dr. Nunez), and vascular surgeon Dr. Ganga Tong. This multidisciplinary team of surgeons will determine the patient's candidacy for major myocutaneous flap reconstruction, and will be the team involved in performing the procedure if it is deemed that the patient is a suitable candidate. This will also depend upon the patient's decision to proceed with major surgical reconstruction. The patient is very equivocal about whether to proceed with the procedure, given its stated morbidities and lengthy recovery process. At this juncture, there is a very small wound in the right groin, with demonstrable improvement within the last several months. We are to use Mary, which will be changed on a daily basis. Patient will return in 1 week for reassessment. Influenza vaccine was not administered today. The patient is not a smoker. She stands 5 feet 7 inches tall. She weighs 198 pounds. Her BMI is 31, which places her in a class I weight category. Weight loss has been recommended. She is to collaborate with her primary care physician in this regard.
[2019-07-30 08:36] VITALS: BP 155/77; PULSE 91; RESP 18; TEMP 36.5; BMI 68.3
--- NOTE | 2019-07-30 09:11 | HP.PCM_ITS ---
(1) History of uterine cancer Status: Chronic Current Visit: No Code(s): Z85.42 - Personal history of malignant neoplasm of other parts of uterus (2) History of melanoma Status: Chronic Current Visit: Yes Code(s): Z85.820 - Personal history of malignant melanoma of skin (3) Hyperlipidemia Status: Chronic Current Visit: No Code(s): E78.5 - Hyperlipidemia, unspecified (4) GERD (gastroesophageal reflux disease) Status: Chronic Current Visit: No Code(s): K21.9 - Gastro-esophageal reflux disease without esophagitis (5) Ulcer of right groin Status: Chronic Current Visit: Yes Qualifiers: Non-pressure ulcer stage: with fat layer exposed Code(s): L98.499 - Non-pressure chronic ulcer of skin of other sites with unspecified severity (6) Obesity (BMI 30.0-34.9) Status: Chronic Current Visit: No Code(s): E66.9 - Obesity, unspecified (7) Amputee, above knee Status: Chronic Current Visit: Yes Code(s): Z89.619 - Acquired absence of unspecified leg above knee (8) Soft tissue radionecrosis Status: Chronic Current Visit: Yes Code(s): L59.8 - Other specified disorders of the skin and subcutaneous tissue related to radiation; Y84.2 - Radiological procedure and radiotherapy as the cause of abnormal reaction of the patient, or of later complication, without mention of misadventure at the time of the procedure (9) soft tissue radiation injury Status: Chronic Current Visit: Yes History of Present Illness Date of Service: 07/30/19 Chief Complaint: 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 The patient underwent excision of her melanoma with lymphadenectomy in the right groin. She also underwent lengthy radiation treatments at the [facility] in [place], [place]. Melanoma recurred, and the patient was subsequently treated with monoclonal antibodies in 1984. 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 Treatment included local ulcer care and hyperbaric oxygen therapy. She underwent a total of nearly 90 treatments of hyperbaric oxygen therapy. It is known that she tolerated the therapies well, and derived significant benefit. She relates no history of claustrophobia, or other complications related to the hyperbaric oxygen therapy treatments. She has no history of barotrauma to lungs, ears, etc. Her medical history reveals no evidence of contraindications to hyperbaric oxygen therapy. The patient's current course of management includes a total of 90 sessions of hyperbaric oxygen therapy, which have been completed without total healing of the patient's right groin ulceration. EpiFix allografts have also been used for a series of 10 applications, without total healing. It appears as though the patient's current clinical course is mimicking that of the past, with wound healing which is very recalcitrant to conventional, conservative treatment measures. 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 She has undergone excision of melanoma from the right calf, with lymphadenectomy of the right groin in the 1969's. She subsequently required surgeries of the right thigh related to osteomyelitis, MRSA infection, and radiation injury to the right femoral artery. Ultimately, the patient required right above-knee amputation, performed in 2000. She also has a remote history of open reduction and internal fixation of a right ankle fracture. Allergies/Adverse Reactions: Allergies No Known Allergies Allergy (Verified 06/20/17 09:22) Home Medications: Ambulatory Orders Medication Instructions Recorded Famotidine 20 mg PO 06/20/17 Pravastatin [Pravachol] 20 mg PO DAILY 06/20/17 - Family History Maternal - - The patient's mother is 98 years of age and relatively healthy. The patient's father at age of 79 with a history of cardiomyopathy. Smoking Status: Former smoker Tobacco Use: Non-smoker Review of Systems Constitutional: Denies: Chills, Fever, Weight Change Eyes: Denies: Pain, Vision Change HEENT: Denies: Difficulty Hearing, Difficulty Swallowing, Sinus Congestion Cardiovascular: Denies: Chest Pain, Palpitations Respiratory: Denies: Cough, Shortness of Breath Gastrointestinal: Denies: Diarrhea, Nausea, Vomiting Genitourinary: Denies: Dysuria, Hematuria Endocrine: Denies: Heat/ Cold Intolerance, Polydipsia, Polyuria Hematologic/ Lymphatic: Denies: Easy Bruising, Easy Bleeding - Physical Exam Vital Signs Temp Pulse Resp BP 97.7 F L 91 18 155/77 H 07/30/19 08:36 07/30/19 08:36 07/30/19 08:36 07/30/19 08:36 General: Alert, Oriented x3, Cooperative, No apparent distress, Well developed, Well nourished HEENT: Atraumatic, PERRLA, EOMI, Normocephalic Oral: Moist Mucosa Neck: No JVD Lungs: Normal air movement Abdomen: Non-Distended Extremities: No clubbing, No cyanosis, No edema, No Calf Tenderness, - - A right above-knee amputation stump is noted. It is well-healed. The ulceration in the right groin persists, but is extremely small in size, and looks to be epithelializing. Dimensions are documented elsewhere. There is no sign of infection or cellulitis. There is no significant bioburden. Skin: No rashes Wound Measurements and Assessment WC - Nurse 1 - General Ulcer Measurement Start: 07/23/19 09:03 Freq: Status: Active Protocol: Activity Type Activity Date Activity User E-Sign Co-Sign Detail Recorded Client Recorded Date Recorded By Document 07/30/19 08:36 [id number] 07/30/19 08:43 DL 07/30/19 08:36 Wound Center Nurse 1 [Ulcer Assessment] 7. R groin -Current Size (cm) - Length 0.1 -Current Size (cm) - Width 0.1 -Current Size (cm) - Depth 0.1 -Total Square Cm 0.01 -Photo Taken Yes -Exudate Amt None Present -Wound Margin Flat & Intact -Granulation Amt Large (67-100%) -Granulation Quality [place] -Necrosis Amt None Present (0 %) -Structure Exposed N/A -Texture (Blanche-wound Skin Appearance) Scarring -Moisture (Blanche-wound Skin Appearance No Abnormality ) -Color (Blanche-wound Skin Appearance) No Abnormality -Temperature (Blanche-wound Skin No Abnormality Appearance) (Pt Warm) -Tenderness on Palpation (Blanceh-wound No Skin Appearance) -Ulcer Cleansing Rinsed/ Irrigated with Saline -Foul Odor after Cleansing No WC - Nurse 2 - General Ulcer CM Notes Start: 07/23/19 09:03 Freq: Status: Active Protocol: Activity Type Activity Date Activity User E-Sign Co-Sign Detail Recorded Client Recorded Date Recorded By Document 07/30/19 09:02 DV [id number] 07/30/19 09:04 DV 07/30/19 09:02 Wound Center Nurse 2 [Procedure/Treatment] -Time 09:03 -Correct Patient Yes -Correct Side, Site, Position Yes -Correct Procedure No -Procedure Performed No [See Physician Procedure note for Specifics] Pain Scale: 0-10 Numeric [Pain] -Is Patient Pain Free? Yes Musculoskeletal: No Muscle Wasting Neurological: Cranial nerves II-XII grossly intact, Neuro grossly intact Psych/Mental Status: Normal Affect, Appropriate, Alert and oriented to time, place, person, mood and affect Debridement Note Post-Debridement Measurements/Treatment WC - Nurse 2 - General Ulcer CM Notes Start: 07/23/19 09:03 Freq: Status: Active Protocol: Activity Type Activity Date Activity User E-Sign Co-Sign Detail Recorded Client Recorded Date Recorded By Document 07/23/19 09:35 DV [id number] 07/23/19 09:36 DV Document 07/30/19 09:02 DV [id number] 07/30/19 09:04 DV 07/23/19 07/30/19 09:35 09:02 Wound Center Nurse 2 7. R groin -Time 09:35 09:03 -Correct Patient Yes Yes -Correct Side, Site, Position Yes Yes -Correct Procedure Yes No -Procedure Performed Yes No -Type of Procedure Debridement -Clinical Debridement Subcutaneous -Post Debridement Size (cm) - Length 0.1 -Post Debridement Size (cm) - Width 0.1 -Post Debridement Size (cm) - Depth 0.1 -Total Square Cm 0.01 -Wound/Ulcer Outcome Not Healed -Ulcer Cleansing Rinsed/ Irrigated with Saline -Foul Odor after Cleansing No -Bioengineered Tissue No -Bleeding Controlled with Pressure -Offloading No -Treatment Response Procedure Tolerated Well Pain Scale: 0-10 Numeric Is Patient Pain Free? Yes Yes No debridement was completed today - The patient's right groin ulceration is nearly healed, and appears to be epithelializing. Assessment/Plan Active Problems History of melanoma (Chronic) Ulcer of right groin (Chronic) Amputee, above knee (Chronic) 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 In the 1970's, she was diagnosed with malignant melanoma of the right calf, with metastasis to lymph nodes in the r ight groin. She underwent excision of the melanoma with right groin lymphadenectomy. She was subsequently treated with a long series of radiation treatments to the right groin. During the days of her radiation treatment, it is suspected that the radiation techniques were somewhat early in their evolution, and quite likely that the patient received massive doses of radiation exposure, exceeding doses which would be considered appropriate today, with techniques which are primitive by today's standards. As a result, the patient has developed soft tissue radiation injury, and has previously been treated at our wound center in the past with a series of approximately 90 hyperbaric oxygen therapy treatments, in 2011. She presented with recurrence of soft tissue radionecrosis in the right groin. Hyperbaric oxygen therapy treatments were initiated, and the patient has undergone a series of 90 additional hyperbaric oxygen treatment sessions. She has shown mild benefit from the hyperbaric o xygen treatments. In review of the patient's past history, each treatment course has been rather protracted in terms of healing. The patient was previously referred for consultation at [facility] (Dr. Harding), which had been arranged by our facility. Medical records related to the patient's visit at [facility] resulted in no significant new recommendations for treatment or management. The patient remains on a well-balanced diet. Given that little progress has been made in recent months, I have contacted and spoken by phone with the Sales Representative [employer] of the [facility], Dr. Bassam Alas. Dr. Alas has been very helpful. He has conferred with his colleague, Plastic Surgeon Dr. Cassius Whitman. Dr. Whitman has indicated his willingness to evaluate the patient, and the patient has now been evaluated by Dr. Frausto recently. The patient was very impressed with her interaction with the plastic surgeon. A number of options were discussed. Dr. Frausto has proposed a rectus abdominis myocutaneous flap. As a prelude to flap reconstruction, the patient underwent a CT angiogram at [facility] on December 13, 2018. She met with Dr. Frausto later that same day. The patient relates that the nature of the surgical procedure, and the recovery phase, has been described in detail, and it is anticipated to be quite challenging and lengthy. The patient wishes to consider all options prior to making a firm commitment to surgical intervention. She has most recently been evaluated by a beater worker helper at [facility], who had further regulations regarding the patient's expectations for recovery from major surgical intervention. The patient is yet to make a commitment to undergoing major surgery and management of her right groin ulceration. The patient has also met with the vascular surgeon at [facility], Dr. Ganga Tong. Once again, the patient has been left with the impression that any surgery to reconstruct the area in the right groin could be fraught with complications and a lengthy recovery. This has given the patient pause and reason for concern, and she is to continue considering all options. At this juncture, however, the patient has demonstrated significant progress in recent weeks. At this juncture, she is nearly healed, having made good progress in recent weeks. Plan: The patient has been the recipient of 10 EpiFix applications. A request for preauthorization of PuraPly was denied. A series of 90 hyperbaric oxygen therapy sessions have also been completed. Attempts at preauthorization of negative pressure wound therapy have also been denied. We have used a series of [place] allografts. The patient is to continue with a nutritious diet. Biopsies of the ulceration have been obtained, and the results were negative for malignancy. The patient has been evaluated by Plastic Surgeon, Dr. Cassius Whitman, at [facility], and a team of other medical providers at [facility]. It is anticipated that the patient may undergo a rectus abdominis myocutaneous flap reconstruction in the future, and is giving consideration to all aspects related to this option. She has been given understanding that the procedure is a big ordeal, and a lengthy recovery and rehabilitation will likely follow. She has seen a general surgeon at [facility] (Dr. Nunez), and vascular surgeon Dr. Ganga Tong. This multidisciplinary team of surgeons will determine the patient's candidacy for major myocutaneous flap reconstruction, and will be the team involved in performing the procedure if it is deemed that the patient is a suitable candidate. This will also depend upon the patient's decision to proceed with major surgical reconstruction. The patient is very equivocal about whether to proceed with the procedure, given its stated morbidities and lengthy recovery process. At this juncture, there is a very small wound in the right groin, with demonstrable improvement within the last several weeks. We are to continue the use of Mary, which will be changed on a daily basis. Patient will return in 2 weeks for reassessment. Influenza vaccine was not administered today. The patient is not a smoker. She stands 5 feet 7 inches tall. She weighs 198 pounds. Her BMI is 31, which places her in a class I weight category. Weight loss has been recommended. She is to collaborate with her primary care physician in this regard.
== END 2019-08-09 23:59 ==
LOC: WC 08:00
PROVIDERS: Family Provider Family Medicine; PCP Family Medicine; Referring Provider Surgery; Visit Provider Surgery
DX: L59.8 Other specified disorders of the skin and subcutaneous tissue related to radiation (principal); Y84.2 Radiological procedure and radiotherapy as the cause of abnormal reaction of the patient, or of later complication, without mention of misadventure at the time of the procedure; E78.5 Hyperlipidemia, unspecified; K21.9 Gastro-esophageal reflux disease without esophagitis; E66.9 Obesity, unspecified; Z85.42 Personal history of malignant neoplasm of other parts of uterus; Z85.820 Personal history of malignant melanoma of skin; L98.492 Non-pressure chronic ulcer of skin of other sites with fat layer exposed; Z89.611 Acquired absence of right leg above knee; Z86.14 Personal history of Methicillin resistant Staphylococcus aureus infection; Z87.891 Personal history of nicotine dependence
CPT/HCPCS: 11042; 99212; G0463

== ENCOUNTER 2019-09-03 11:30 | Outpatient (RCR) | payer OTHER, SELFPAY ==
[2019-08-10 00:29] VITALS: BP 155/77; PULSE 91; RESP 18; TEMP 36.5
[2019-08-13 08:50] VITALS: BP 140/83; PULSE 96; RESP 18; TEMP 35.9; BMI 68.3
--- NOTE | 2019-08-13 09:28 | PCM.WC.HP ---
(1) History of uterine cancer Status: Chronic Current Visit: No Code(s): Z85.42 - Personal history of malignant neoplasm of other parts of uterus (2) History of melanoma Status: Chronic Current Visit: Yes Code(s): Z85.820 - Personal history of malignant melanoma of skin (3) Hyperlipidemia Status: Chronic Current Visit: No Code(s): E78.5 - Hyperlipidemia, unspecified (4) GERD (gastroesophageal reflux disease) Status: Chronic Current Visit: No Code(s): K21.9 - Gastro-esophageal reflux disease without esophagitis (5) Ulcer of right groin Status: Chronic Current Visit: Yes Qualifiers: Non-pressure ulcer stage: with fat layer exposed Code(s): L98.499 - Non-pressure chronic ulcer of skin of other sites with unspecified severity (6) Obesity (BMI 30.0-34.9) Status: Chronic Current Visit: No Code(s): E66.9 - Obesity, unspecified (7) Amputee, above knee Status: Chronic Current Visit: Yes Code(s): Z89.619 - Acquired absence of unspecified leg above knee (8) Soft tissue radionecrosis Status: Chronic Current Visit: Yes Code(s): L59.8 - Other specified disorders of the skin and subcutaneous tissue related to radiation; Y84.2 - Radiological procedure and radiotherapy as the cause of abnormal reaction of the patient, or of later complication, without mention of misadventure at the time of the procedure (9) soft tissue radiation injury Status: Chronic Current Visit: Yes History of Present Illness Date of Service: 08/13/19 Chief Complaint: 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 The patient underwent excision of her melanoma with lymphadenectomy in the right groin. She also underwent lengthy radiation treatments at the [facility] in [place], [place]. Melanoma recurred, and the patient was subsequently treated with monoclonal antibodies in 1984. 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 Treatment included local ulcer care and hyperbaric oxygen therapy. She underwent a total of nearly 90 treatments of hyperbaric oxygen therapy. It is known that she tolerated the therapies well, and derived significant benefit. She relates no history of claustrophobia, or other complications related to the hyperbaric oxygen therapy treatments. She has no history of barotrauma to lungs, ears, etc. Her medical history reveals no evidence of contraindications to hyperbaric oxygen therapy. The patient's current course of management includes a total of 90 sessions of hyperbaric oxygen therapy, which have been completed without total healing of the patient's right groin ulceration. EpiFix allografts have also been used for a series of 10 applications, without total healing. It appears as though the patient's current clinical course is mimicking that of the past, with wound healing which is very recalcitrant to conventional, conservative treatment measures. 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 She has undergone excision of melanoma from the right calf, with lymphadenectomy of the right groin in the 1969's. She subsequently required surgeries of the right thigh related to osteomyelitis, MRSA infection, and radiation injury to the right femoral artery. Ultimately, the patient required right above-knee amputation, performed in 2000. She also has a remote history of open reduction and internal fixation of a right ankle fracture. Allergies/Adverse Reactions: Allergies No Known Allergies Allergy (Verified 06/20/17 09:22) Home Medications: Ambulatory Orders Medication Instructions Recorded Famotidine 20 mg PO 06/20/17 Pravastatin [Pravachol] 20 mg PO DAILY 06/20/17 - Family History Maternal - - The patient's mother is 98 years of age and relatively healthy. The patient's father at age of 79 with a history of cardiomyopathy. Smoking Status: Former smoker Tobacco Use: Non-smoker Review of Systems Constitutional: Denies: Chills, Fever, Weight Change Eyes: Denies: Pain, Vision Change HEENT: Denies: Difficulty Hearing, Difficulty Swallowing, Sinus Congestion Cardiovascular: Denies: Chest Pain, Palpitations Respiratory: Denies: Cough, Shortness of Breath Gastrointestinal: Denies: Diarrhea, Nausea, Vomiting Genitourinary: Denies: Dysuria, Hematuria Endocrine: Denies: Heat/ Cold Intolerance, Polydipsia, Polyuria Hematologic/ Lymphatic: Denies: Easy Bruising, Easy Bleeding - Physical Exam Vital Signs Temp Pulse Resp BP 96.6 F L 96 18 140/83 H 08/13/19 08:50 08/13/19 08:50 08/13/19 08:50 08/13/19 08:50 General: Alert, Oriented x3, Cooperative, No apparent distress, Well developed, Well nourished HEENT: Atraumatic, PERRLA, EOMI, Normocephalic Oral: Moist Mucosa Neck: No JVD Lungs: Normal air movement Abdomen: Non-Distended Extremities: No clubbing, No cyanosis, No edema, No Calf Tenderness, - - A well-healed right above-knee amputation stump is noted. The ulceration in the right groin now appears to be completely healed and epithelialized. There are no open wounds or ulcerations. Skin: No rashes, No breakdown Wound Measurements and Assessment WC - Nurse 1 - General Ulcer Measurement Start: 08/13/19 08:49 Freq: Status: Active Protocol: Activity Type Activity Date Activity User E-Sign Co-Sign Detail Recorded Client Recorded Date Recorded By Document 08/13/19 08:50 [id number] 08/13/19 08:56 DL 08/13/19 08:50 Wound Center Nurse 1 [Ulcer Assessment] 7. R groin -Current Size (cm) - Length 0 -Current Size (cm) - Width 0 -Current Size (cm) - Depth 0 -Total Square Cm 0 -Photo Taken Yes -Exudate Amt None Present -Wound Margin Flat & Intact -Granulation Amt Large (67-100%) -Granulation Quality [place] -Necrosis Amt None Present (0 %) -Structure Exposed N/A -Texture (Blanche-wound Skin Appearance) Scarring -Moisture (Blanche-wound Skin Appearance No Abnormality ) -Color (Blanche-wound Skin Appearance) No Abnormality -Temperature (Blanche-wound Skin No Abnormality Appearance) (Pt Warm) -Tenderness on Palpation (Blanche-wound No Skin Appearance) -Ulcer Cleansing Rinsed/ Irrigated with Saline -Foul Odor after Cleansing No Musculoskeletal: No Muscle Wasting Neurological: Cranial nerves II-XII grossly intact, Neuro grossly intact Psych/Mental Status: Normal Affect, Appropriate, Alert and oriented to time, place, person, mood and affect Debridement Note No debridement was completed today - The patient's right groin ulceration appears to be completely healed and epithelialized. Assessment/Plan Active Problems History of melanoma (Chronic) Ulcer of right groin (Chronic) Amputee, above knee (Chronic) 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 In the 1970's, she was diagnosed with malignant melanoma of the right calf, with metastasis to lymph nodes in the right groin. She underwent excision of the melanoma with right groin lymphadenectomy. She was subsequently treated with a long series of radiation treatments to the right groin. During the days of her radiation treatment, it is suspected that the radiation techniques were somewhat early in their evolution, and quite likely that the patient received massive doses of radiation exposure, exceeding doses which would be considered appropriate today, with techniques which are primitive by today's standards. As a result, the patient has developed soft tissue radiation injury, and has previously been treated at our wound center in the past with a series of approximately 90 hyperbaric oxygen therapy treatments, in 2011. She presented with recurrence of soft tissue radionecrosis in the right groin. Hyperbaric oxygen therapy treatments were initiated, and the patient has undergone a series of 90 additional hyperbaric oxygen treatment sessions. She has shown mild benefit from the hyperbaric oxygen treatments. In review of the patient's past history, each treatment course has been rather protracted in terms of healing. The patient was previously referred for consultation at [facility] (Dr. Harding), which had been arranged by our facility. Medical records related to the patient's visit at [facility] resulted in no significant new recommendations for treatment or management. The patient remains on a well-balanced diet. Given that little progress has been made in recent months, I have contacted and spoken by phone with the Patrol Community Service Officer of the [facility], Dr. Bassam Alas. Dr. Alas has been very helpful. He has conferred with his colleague, Plastic Surgeon Dr. Cassius Whitman. Dr. Whitman has indicated his willingness to evaluate the patient, and the patient has now been evaluated by Dr. Frausto recently. The patient was very impressed with her interaction with the plastic surgeon. A number of options were discussed. Dr. Frausto has proposed a rectus abdominis myocutaneous flap. As a prelude to flap reconstruction, the patient underwent a CT angiogram at [facility] on December 13, 2018. She met with Dr. rFausto later that same day. The patient relates that the nature of the surgical procedure, and the recovery phase, has been described in detail, and it is anticipated to be quite challenging and lengthy. The patient wishes to consider all options prior to making a firm commitment to surgical intervention. She has most recently been evaluated by a furniture finisher at [facility], who had further regulations regarding the patient's expectations for recovery from major surgical intervention. The patient is yet to make a commitment to undergoing major surgery and management of her right groin ulceration. The patient has also met with the vascular surgeon at [facility], Dr. Ganga Tong. Once again, the patient has been left with the impression that any surgery to reconstruct the area in the right groin could be fraught with complications and a lengthy recovery. This has given the patient pause and reason for concern, and she is to continue considering all options. At this juncture, however, the patient has demonstrated significant progress in recent weeks. At this juncture, she is healed, having made good progress in recent weeks. Plan: The patient presents today where it appears as though she is completely healed and epithelialized. The ulceration in the right groin now appears to be healed. The patient has been the recipient of 10 EpiFix applications. A request for preauthorization of PuraPly was denied. A series of 90 hyperbaric oxygen therapy sessions have also been completed. Attempts at preauthorization of negative pressure wound therapy have also been denied. We have used a series of [employer] allografts. The patient is to continue with a nutritious diet. Prior biopsies of the patient's right groin ulceration were negative for malignancy. The patient has been evaluated by Plastic Surgeon, Dr. Cassius Whitman, at [facility], and a team of other medical providers at [facility]. She has been given understanding that the surgical procedure necessary to result in coverage of her chronic wound is a big ordeal, and a lengthy recovery and rehabilitation will likely follow. She has seen a general surgeon at [facility] (Dr. Nunez), and vascular surgeon Dr. Ganga Tong. This multidisciplinary team of surgeons will determine the patient's candidacy for major myocutaneous flap reconstruction, and will be the team involved in performing the procedure if it is deemed that the patient is a suitable candidate. However, at this juncture, using conservative treatment measures, the patient's right groin ulceration appears to be completely healed and epithelialized. There has been demonstrable improvement within the last several weeks. The patient is to be discharged from the [facility], and will follow-up henceforth on an as-needed basis. Influenza vaccine was not administered today. The patient is not a smoker. She stands 5 feet 7 inches tall. She weighs 198 pounds. Her BMI is 31, which places her in a class I weight category. Weight loss has been recommended. She is to collaborate with her primary care physician in this regard.
[2019-09-03 11:44] VITALS: BP 157/98; PULSE 89; RESP 20; TEMP 36.6; BMI 68.3
--- NOTE | 2019-09-03 12:07 | HP.PCM_ITS ---
(1) History of uterine cancer Status: Chronic Current Visit: No Code(s): Z85.42 - Personal history of malignant neoplasm of other parts of uterus (2) History of melanoma Status: Chronic Current Visit: Yes Code(s): Z85.820 - Personal history of malignant melanoma of skin (3) Hyperlipidemia Status: Chronic Current Visit: No Code(s): E78.5 - Hyperlipidemia, unspecified (4) GERD (gastroesophageal reflux disease) Status: Chronic Current Visit: No Code(s): K21.9 - Gastro-esophageal reflux disease without esophagitis (5) Ulcer of right groin Status: Chronic Current Visit: Yes Qualifiers: Non-pressure ulcer stage: with fat layer exposed Code(s): L98.499 - Non-pressure chronic ulcer of skin of other sites with unspecified severity (6) Obesity (BMI 30.0-34.9) Status: Chronic Current Visit: No Code(s): E66.9 - Obesity, unspecified (7) Amputee, above knee Status: Chronic Current Visit: Yes Code(s): Z89.619 - Acquired absence of unspecified leg above knee (8) Soft tissue radionecrosis Status: Chronic Current Visit: Yes Code(s): L59.8 - Other specified disorders of the skin and subcutaneous tissue related to radiation; Y84.2 - Radiological procedure and radiotherapy as the cause of abnormal reaction of the patient, or of later complication, without mention of misadventure at the time of the procedure (9) soft tissue radiation injury Status: Chronic Current Visit: Yes History of Present Illness Date of Service: 09/03/19 Chief Complaint: 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 The patient underwent excision of her melanoma with lymphadenectomy in the right groin. She also underwent lengthy radiation treatments at the [facility] in [place], [place]. Melanoma recurred, and the patient was subsequently treated with monoclonal antibodies in 1984. 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 Treatment included local ulcer care and hyperbaric oxygen therapy. She underwent a total of nearly 90 treatments of hyperbaric oxygen therapy. It is known that she tolerated the therapies well, and derived significant benefit. She relates no history of claustrophobia, or other complications related to the hyperbaric oxygen therapy treatments. She has no history of barotrauma to lungs, ears, etc. Her medical history reveals no evidence of contraindications to hyperbaric oxygen therapy. The patient's current course of management includes a total of 90 sessions of hyperbaric oxygen therapy, which have been completed without total healing of the patient's right groin ulceration. EpiFix allografts have also been used for a series of 10 applications, without total healing. It appears as though the patient's current clinical course is mimicking that of the past, with wound healing which is very recalcitrant to conventional, conservative treatment measures. 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 She has undergone excision of melanoma from the right calf, with lymphadenectomy of the right groin in the 1969's. She subsequently required surgeries of the right thigh related to osteomyelitis, MRSA infection, and radiation injury to the right femoral artery. Ultimately, the patient required right above-knee amputation, performed in 2000. She also has a remote history of open reduction and internal fixation of a right ankle fracture. Allergies/Adverse Reactions: Allergies No Known Allergies Allergy (Verified 06/20/17 09:22) Home Medications: Ambulatory Orders Medication Instructions Recorded Famotidine 20 mg PO 06/20/17 Pravastatin [Pravachol] 20 mg PO DAILY 06/20/17 - Family History Maternal - - The patient's mother is 98 years of age and relatively healthy. The patient's father at age of 79 with a history of cardiomyopathy. Smoking Status: Former smoker Tobacco Use: Non-smoker Review of Systems Constitutional: Denies: Chills, Fever, Weight Change Eyes: Denies: Pain, Vision Change HEENT: Denies: Difficulty Hearing, Difficulty Swallowing, Sinus Congestion Cardiovascular: Denies: Chest Pain, Palpitations Respiratory: Denies: Cough, Shortness of Breath Gastrointestinal: Denies: Diarrhea, Nausea, Vomiting Genitourinary: Denies: Dysuria, Hematuria Endocrine: Denies: Heat/ Cold Intolerance, Polydipsia, Polyuria Hematologic/ Lymphatic: Denies: Easy Bruising, Easy Bleeding - Physical Exam Vital Signs Temp Pulse Resp BP 97.8 F 89 20 H 157/98 H 09/03/19 11:44 09/03/19 11:44 09/03/19 11:44 09/03/19 11:44 General: Alert, Oriented x3, Cooperative, No apparent distress, Well developed, Well nourished HEENT: Atraumatic, PERRLA, EOMI, Normocephalic Oral: Moist Mucosa Neck: No JVD Lungs: Normal air movement Abdomen: Non-Distended Extremities: No clubbing, No cyanosis, No edema, No Calf Tenderness, - - A well- healed right above-knee amputation stump is noted. An ulceration is noted in the right groin. This is the site of a previous ulceration, which was deemed to be completely healed approximately 3 weeks ago, resulting in the patient's discharge from our facility. For 2 weeks, the site remained healed, and finally recurred approximately 1 week ago. At present, there is a small open ulceration at the site of the previous ulceration. Dimensions are documented elsewhere. There is no sign of infection or cellulitis. There is a small amount of bioburden. Skin: No rashes Wound Measurements and Assessment WC - Nurse 1 - General Ulcer Measurement Start: 08/13/19 08:49 Freq: Status: Active Protocol: Activity Type Activity Date Activity User E-Sign Co-Sign Detail Recorded Client Recorded Date Recorded By Document 09/03/19 11:44 DL [id number] 09/03/19 11:52 DL 09/03/19 11:44 Wound Center Nurse 1 [Ulcer Assessment] #8 R Groin -Current Size (cm) - Length 2.1 -Current Size (cm) - Width 0.6 -Current Size (cm) - Depth 0.2 -Total Square Cm 1.26 -Photo Taken Yes -Exudate Amt Small -Exudate Type Serosanguineous -Wound Margin Distinct, Outline Attached -Granulation Amt Large (67-100%) -Granulation Quality Revere -Necrosis Amt Small (1-33%) -Necrotic Tissue Type Adherent Slough -Structure Exposed N/A -Texture (Blanche-wound Skin Appearance) Scarring -Moisture (Blanche-wound Skin Appearance Maceration ) -Color (Blanche-wound Skin Appearance) No Abnormality -Temperature (Blanche-wound Skin No Abnormality Appearance) (Pt Warm) -Tenderness on Palpation (Blanche-wound No Skin Appearance) -Ulcer Cleansing Rinsed/ Irrigated with Saline -Foul Odor after Cleansing No -Anesthetic Used 4% Lidocaine Solution - Nurse 2 - General Ulcer CM Notes Start: 08/13/19 08:49 Freq: Status: Active Protocol: Activity Type Activity Date Activity User E-Sign Co-Sign Detail Recorded Client Recorded Date Recorded By Document 09/03/19 12:02 DV [id number] 09/03/19 12:05 DV 09/03/19 12:02 Wound Center Nurse 2 [Procedure/Treatment] -Time 12:03 -Correct Patient Yes -Correct Side, Site, Position Yes -Correct Procedure Yes -Procedure Performed Yes -Type of Procedure Debridement -Clinical Debridement Subcutaneous -Post Debridement Size (cm) - Length 1.1 -Post Debridement Size (cm) - Width 0.2 -Post Debridement Size (cm) - Depth 0.2 -Total Square Cm 0.22 -Wound/Ulcer Outcome Not Healed -Ulcer Cleansing Rinsed/ Irrigated with Saline -Foul Odor after Cleansing No -Bioengineered Tissue No -Bleeding Controlled with Pressure -Offloading No -Treatment Response Procedure Tolerated Well [See Physician Procedure note for Specifics] Pain Scale: 0-10 Numeric [Pain] -Is Patient Pain Free? Yes Musculoskeletal: No Muscle Wasting Neurological: Cranial nerves II-XII grossly intact, Neuro grossly intact Psych/Mental Status: Normal Affect, Appropriate, Alert and oriented to time, place, person, mood and affect Debridement Note Post-Debridement Measurements/Treatment - Nurse 2 - General Ulcer CM Notes Start: 08/13/19 08:49 Freq: Status: Active Protocol: Activity Type Activity Date Activity User E-Sign Co-Sign Detail Recorded Client Recorded Date Recorded By Document 08/13/19 09:25 DV [id number] 08/13/19 09:29 DV Document 09/03/19 12:02 DV [id number] 09/03/19 12:05 DV 08/13/19 09/03/19 09:25 12:02 Wound Center Nurse 2 #8 R Groin -Time 12:03 -Correct Patient Yes -Correct Side, Site, Position Yes -Correct Procedure Yes -Procedure Performed Yes -Type of Procedure Debridement -Clinical Debridement Subcutaneous -Post Debridement Size (cm) - Length 1.1 -Post Debridement Size (cm) - Width 0.2 -Post Debridement Size (cm) - Depth 0.2 -Total Square Cm 0.22 -Wound/Ulcer Outcome Not Healed -Ulcer Cleansing Rinsed/ Irrigated with Saline -Foul Odor after Cleansing No -Bioengineered Tissue No -Bleeding Controlled with Pressure -Offloading No -Treatment Response Procedure Tolerated Well 7. R groin -Time 09:26 -Correct Patient Yes -Correct Side, Site, Position Yes -Correct Procedure No -Procedure Performed No -Post Debridement Size (cm) - Length 0 -Post Debridement Size (cm) - Width 0 -Post Debridement Size (cm) - Depth 0 -Total Square Cm 0 -Wound/Ulcer Outcome Healed- Epithelialized Pain Scale: 0-10 Numeric Is Patient Pain Free? 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 In the 1970's, she was diagnosed with malignant melanoma of the right calf, with metastasis to lymph nodes in the right groin. She underwent excision of the melanoma with right groin lymphadenectomy. She was subsequently treated with a long series of radiation treatments to the right groin. During the days of her radiation treatment, it is suspected that the radiation techniques were somewhat early in their evolution, and quite likely that the patient received massive doses of radiation exposure, exceeding doses which would be considered appropriate today, with techniques which are primitive by today's standards. As a result, the patient has developed soft tissue radiation injury, and has previously been treated at our wound center in the past with a series of approximately 90 hyperbaric oxygen therapy treatments, in 2011. She presented with recurrence of soft tissue radionecrosis in the right groin. Hyperbaric oxygen therapy treatments were initiated, and the patient has undergone a series of 90 additional hyperbaric oxygen treatment sessions. She has shown mild benefit from the hyperbaric oxygen treatments. In review of the patient's past history, each treatment course has been rather protracted in terms of healing. The patient was previously referred for consultation at [facility] (Dr. Harding), which had been arranged by our facility. Medical records related to the patient's visit at [facility] resulted in no significant new recommendations for treatment or management. The patient remains on a well-balanced diet. Given that little progress has been made in recent months, I have contacted and spoken by phone with the [facility]ier of [facility], Dr. Bassam Alas. Dr. Alas has been very helpful. He has conferred with his colleague, Plastic Surgeon Dr. Cassius Whitman. Dr. Whitman has indicated his willingness to evaluate the patient, and the patient has now been evaluated by Dr. Frausto recently. The patient was very impressed with her interaction with the plastic surgeon. A number of options were discussed. Dr. Frausto has proposed a rectus abdominis myocutaneous flap. As a prelude to flap reconstruction, the patient underwent a CT angiogram at [facility] on December 13, 2018. She met with Dr. Frausto later that same day. The patient relates that the nature of the surgical procedure, and the recovery phase, has been described in detail, and it is anticipated to be quite challenging and lengthy. The patient wishes to consider all options prior to making a firm commitment to surgical intervention. She has most recently been evaluated by a assistant city attorney at [facility], who had further regulations regarding the patient's expectations for recovery from major surgical intervention. The patient is yet to make a commitment to undergoing major surgery and management of her right groin ulceration. The patient has also met with the vascular surgeon at [facility], Dr. Ganga Tong. Once again, the patient has been left with the impression that any surgery to reconstruct the area in the right groin could be fraught with complications and a lengthy recovery. This has given the patient pause and reason for concern, and she is to continue considering all options. At this juncture, however, the patient is doing relatively well. She had recently healed, but returns 3 weeks following discharge with re-ulceration at the former site. Plan: The patient presents today where it appears as though her prior right groin ulceration has recurred. It remains small in size. It does not appear to be infected. We are to resume the care which had been rendered previously. Her prior care has been well-documented in prior records. She has responded in the most recent past to the use of Mary, which will be continued on a daily basis. The patient is to return in 1 week for reassessment. The patient is to continue with a nutritious diet. Prior biopsies of the patient's right groin ulceration were negative for malignancy. The patient has been evaluated by Plastic Surgeon, Dr. Cassius Whitman, at [facility], and a team of other medical providers at [facility]. She has been given understanding that the surgical procedure necessary to result in coverage of her chronic wound is a big ordeal, and a lengthy recovery and rehabilitation will likely follow. She has seen a general surgeon at [facility] (Dr. Nunez), and vascular surgeon Dr. Ganga Tong. This multidisciplinary team of surgeons determined the patient's candidacy for major myocutaneous flap reconstruction, though the patient was reluctant to proceed given the stated possible morbidities associated with the procedure. Influenza vaccine was not administered today. The patient is not a smoker. She stands 5 feet 7 inches tall. She weighs 198 pounds. Her BMI is 31, which places her in a class I weight category. Weight loss has been recommended. She is to collaborate with her primary care physician in this regard.
== END 2019-09-07 23:59 ==
LOC: WC 11:30
PROVIDERS: Family Provider Family Medicine; PCP Family Medicine; Referring Provider Surgery; Visit Provider Surgery
DX: L59.8 Other specified disorders of the skin and subcutaneous tissue related to radiation (principal); Y84.2 Radiological procedure and radiotherapy as the cause of abnormal reaction of the patient, or of later complication, without mention of misadventure at the time of the procedure; L98.492 Non-pressure chronic ulcer of skin of other sites with fat layer exposed; Z85.820 Personal history of malignant melanoma of skin; E78.5 Hyperlipidemia, unspecified; Z85.42 Personal history of malignant neoplasm of other parts of uterus; K21.9 Gastro-esophageal reflux disease without esophagitis; E66.9 Obesity, unspecified; Z87.891 Personal history of nicotine dependence; Z89.611 Acquired absence of right leg above knee; Z68.31 Body mass index [BMI] 31.0-31.9, adult
CPT/HCPCS: 11042; 99212; G0463

== ENCOUNTER 2019-10-08 08:30 | Outpatient (RCR) | payer OTHER, SELFPAY ==
[2019-09-08 00:24] VITALS: BP 157/98; PULSE 89; RESP 20; TEMP 36.6
[2019-09-10 08:35] VITALS: BP 139/76; PULSE 89; RESP 18; TEMP 36.2; BMI 68.3
--- NOTE | 2019-09-10 09:55 | PCM.WC.HP ---
(1) History of uterine cancer Status: Chronic Current Visit: No Code(s): Z85.42 - Personal history of malignant neoplasm of other parts of uterus (2) History of melanoma Status: Chronic Current Visit: Yes Code(s): Z85.820 - Personal history of malignant melanoma of skin (3) Hyperlipidemia Status: Chronic Current Visit: No Code(s): E78.5 - Hyperlipidemia, unspecified (4) GERD (gastroesophageal reflux disease) Status: Chronic Current Visit: No Code(s): K21.9 - Gastro-esophageal reflux disease without esophagitis (5) Ulcer of right groin Status: Chronic Current Visit: Yes Qualifiers: Non-pressure ulcer stage: with fat layer exposed Code(s): L98.499 - Non-pressure chronic ulcer of skin of other sites with unspecified severity (6) Obesity (BMI 30.0-34.9) Status: Chronic Current Visit: No Code(s): E66.9 - Obesity, unspecified (7) Amputee, above knee Status: Chronic Current Visit: Yes Code(s): Z89.619 - Acquired absence of unspecified leg above knee (8) Soft tissue radionecrosis Status: Chronic Current Visit: Yes Code(s): L59.8 - Other specified disorders of the skin and subcutaneous tissue related to radiation; Y84.2 - Radiological procedure and radiotherapy as the cause of abnormal reaction of the patient, or of later complication, without mention of misadventure at the time of the procedure (9) soft tissue radiation injury Status: Chronic Current Visit: Yes History of Present Illness Date of Service: 09/10/19 Chief Complaint: 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 The patient underwent excision of her melanoma with lymphadenectomy in the right groin. She also underwent lengthy radiation treatments at the [facility] in [place], [place]. Melanoma recurred, and the patient was subsequently treated with monoclonal antibodies in 1984. 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 Treatment included local ulcer care and hyperbaric oxygen therapy. She underwent a total of nearly 90 treatments of hyperbaric oxygen therapy. It is known that she tolerated the therapies well, and derived significant benefit. She relates no history of claustrophobia, or other complications related to the hyperbaric oxygen therapy treatments. She has no history of barotrauma to lungs, ears, etc. Her medical history reveals no evidence of contraindications to hyperbaric oxygen therapy. The patient's current course of management includes a total of 90 sessions of hyperbaric oxygen therapy, which have been completed without total healing of the patient's right groin ulceration. EpiFix allografts have also been used for a series of 10 applications, without total healing. It appears as though the patient's current clinical course is mimicking that of the past, with wound healing which is very recalcitrant to conventional, conservative treatment measures. 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 She has undergone excision of melanoma from the right calf, with lymphadenectomy of the right groin in the 1969's. She subsequently required surgeries of the right thigh related to osteomyelitis, MRSA infection, and radiation injury to the right femoral artery. Ultimately, the patient required right above-knee amputation, performed in 2000. She also has a remote history of open reduction and internal fixation of a right ankle fracture. Allergies/Adverse Reactions: Allergies No Known Allergies Allergy (Verified 06/20/17 09:22) Home Medications: Ambulatory Orders Medication Instructions Recorded Famotidine 20 mg PO 06/20/17 Pravastatin [Pravachol] 20 mg PO DAILY 06/20/17 - Family History Maternal - - The patient's mother is 98 years of age and relatively healthy. The patient's father at age of 79 with a history of cardiomyopathy. Smoking Status: Former smoker Tobacco Use: Non-smoker Review of Systems Constitutional: Denies: Chills, Fever, Weight Change Eyes: Denies: Pain, Vision Change HEENT: Denies: Difficulty Hearing, Difficulty Swallowing, Sinus Congestion Cardiovascular: Denies: Chest Pain, Palpitations Respiratory: Denies: Cough, Shortness of Breath Gastrointestinal: Denies: Diarrhea, Nausea, Vomiting Genitourinary: Denies: Dysuria, Hematuria Endocrine: Denies: Heat/ Cold Intolerance, Polydipsia, Polyuria Hematologic/ Lymphatic: Denies: Easy Bruising, Easy Bleeding - Physical Exam Vital Signs Temp Pulse Resp BP 97.2 F L 89 18 139/76 H 09/10/19 08:35 09/10/19 08:35 09/10/19 08:35 09/10/19 08:35 General: Alert, Oriented x3, Cooperative, No apparent distress, Well developed, Well nourished HEENT: Atraumatic, PERRLA, EOMI, Normocephalic Oral: Moist Mucosa Neck: No JVD Lungs: Normal air movement Abdomen: Non-Distended Extremities: No clubbing, No cyanosis, No edema, No Calf Tenderness, - - A well-healed right above-knee amputation stump is noted. The ulceration in the right groin appears to be completely healed and epithelialized. There is no sign of infection or cellulitis. Skin: No rashes, No breakdown Wound Measurements and Assessment WC - Nurse 1 - General Ulcer Measurement Start: 09/10/19 08:34 Freq: Status: Active Protocol: Activity Type Activity Date Activity User E-Sign Co-Sign Detail Recorded Client Recorded Date Recorded By Document 09/10/19 08:35 [id number] 09/10/19 08:40 DL 09/10/19 08:35 Wound Center Nurse 1 [Ulcer Assessment] #8 R Groin -Current Size (cm) - Length 0.8 -Current Size (cm) - Width 0.3 -Current Size (cm) - Depth 0.2 -Total Square Cm 0.24 -Photo Taken No -Exudate Amt Small -Exudate Type Serosanguineous -Wound Margin Distinct, Outline Attached -Granulation Amt Medium (34-66%) -Granulation Quality [place] -Necrosis Amt Medium (34-66%) -Necrotic Tissue Type Adherent Slough -Structure Exposed N/A -Texture (Blanche-wound Skin Appearance) Scarring -Moisture (Blanche-wound Skin Appearance No Abnormality ) -Color (Blanche-wound Skin Appearance) Rubor -Temperature (Blanche-wound Skin No Abnormality Appearance) (Pt Warm) -Tenderness on Palpation (Blanche-wound No Skin Appearance) -Ulcer Cleansing Wound Cleanser -Foul Odor after Cleansing No -Anesthetic Used 5% Lidocaine Gel - Nurse 2 - General Ulcer Notes Start: 09/10/19 08:34 Freq: Status: Active Protocol: Activity Type Activity Date Activity User E-Sign Co-Sign Detail Recorded Client Recorded Date Recorded By Document 09/10/19 09:46 DV [id number] 09/10/19 09:49 DV 09/10/19 09:46 Wound Center Nurse 2 [Procedure/Treatment] -Time 09:47 -Correct Patient Yes -Correct Side, Site, Position Yes -Correct Procedure No -Procedure Performed No -Wound/Ulcer Outcome Not Healed -Ulcer Cleansing Rinsed/ Irrigated with Saline -Foul Odor after Cleansing No -Bioengineered Tissue No -Bleeding Controlled with Pressure -Offloading No -Treatment Response Procedure Tolerated Well [See Physician Procedure note for Specifics] Pain Scale: 0-10 Numeric [Pain] -Is Patient Pain Free? Yes Musculoskeletal: No Muscle Wasting Neurological: Cranial nerves II-XII grossly intact, Neuro grossly intact Psych/Mental Status: Normal Affect, Appropriate, Alert and oriented to time, place, person, mood and affect Debridement Note Post-Debridement Measurements/Treatment - Nurse 2 - General Ulcer Notes Start: 09/10/19 08:34 Freq: Status: Active Protocol: Activity Type Activity Date Activity User E-Sign Co-Sign Detail Recorded Client Recorded Date Recorded By Document 09/10/19 09:46 DV [id number] 09/10/19 09:49 DV 09/10/19 09:46 Wound Center Nurse 2 #8 R Groin -Time 09:47 -Correct Patient Yes -Correct Side, Site, Position Yes -Correct Procedure No -Procedure Performed No -Wound/Ulcer Outcome Not Healed -Ulcer Cleansing Rinsed/ Irrigated with Saline -Foul Odor after Cleansing No -Bioengineered Tissue No -Bleeding Controlled with Pressure -Offloading No -Treatment Response Procedure Tolerated Well Pain Scale: 0-10 Numeric Is Patient Pain Free? Yes No debridement was completed today - The patient's right groin ulceration appears to be completely healed and epithelialized Assessment/Plan Active Problems History of melanoma (Chronic) Ulcer of right groin (Chronic) Amputee, above knee (Chronic) 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 In the 1970's, she was diagnosed with malignant melanoma of the right calf, with metastasis to lymph nodes in the right groin. She underwent excision of the melanoma with right groin lymphadenectomy. She was subsequently treated with a long series of radiation treatments to the right groin. During the days of her radiation treatment, it is suspected that the radiation techniques were somewhat early in their evolution, and quite likely that the patient received massive doses of radiation exposure, exceeding doses which would be considered appropriate today, with techniques which are primitive by today's standards. As a result, the patient has developed soft tissue radiation injury, and has previously been treated at our wound center in the past with a series of approximately 90 hyperbaric oxygen therapy treatments, in 2011. She presented with recurrence of soft tissue radionecrosis in the right groin. Hyperbaric oxygen therapy treatments were initiated, and the patient has undergone a series of 90 additional hyperbaric oxygen treatment sessions. She has shown mild benefit from the hyperbaric oxygen treatments. In review of the patient's past history, each treatment course has been rather protracted in terms of healing. The patient was previously referred for consultation at [facility] (Dr. Harding), which had been arranged by our facility. Medical records related to the patient's visit at [facility] resulted in no significant new recommendations for treatment or management. The patient remains on a well-balanced diet. Given that little progress has been made in recent months, I have contacted and spoken by phone with the Machine Cutter of the [facility], Dr. Bassam Alas. Dr. Alas has been very helpful. He has conferred with his colleague, Plastic Surgeon Dr. Cassius Whitman. Dr. Whitman has indicated his willingness to evaluate the patient, and the patient has now been evaluated by Dr. Frausto recently. The patient was very impressed with her interaction with the plastic surgeon. A number of options were discussed. Dr. Frausto has proposed a rectus abdominis myocutaneous flap. As a prelude to flap reconstruction, the patient underwent a CT angiogram at [facility] on December 13, 2018. She met with Dr. Frausto later that same day. The patient relates that the nature of the surgical procedure, and the recovery phase, has been described in detail, and it is anticipated to be quite challenging and lengthy. The patient wishes to consider all options prior to making a firm commitment to surgical intervention. She has most recently been evaluated by a human factors ergonomist at [facility], who had further regulations regarding the patient's expectations for recovery from major surgical intervention. The patient is yet to make a commitment to undergoing major surgery and management of her right groin ulceration. The patient has also met with the vascular surgeon at [facility], Dr. Ganga Tong. Once again, the patient has been left with the impression that any surgery to reconstruct the area in the right groin could be fraught with complications and a lengthy recovery. This has given the patient pause and reason for concern, and she is to continue considering all options. At this juncture, however, the patient is doing relatively well. She had recently healed, but returned 3 weeks following discharge with re-ulceration at the former site. At this visit, the patient now appears to be healed once again. Plan: The patient presents today where it appears as though her right groin ulceration has healed. We are to continue with Mary applied topically, with Adaptic. At 12-hour intervals following application of the Mary, the patient is to apply Vaseline to the site. Her right groin ulceration appears to be healed, and may have recurred as a result of desiccation of the tissues, due to a lack of tissue hydration. Efforts are to be made now to maintain moisture at the former ulcer site, in an effort to maintain epithelialization that has occurred. Patient will return in 1 week for reassessment. The patient is to continue with a nutritious diet. Prior biopsies of the patient's right groin ulceration were negative for malignancy. The patient has been evaluated by Plastic Surgeon, Dr. Cassius Whitman, at [facility], and a team of other medical providers at [facility]. She has been given understanding that the surgical procedure necessary to result in coverage of her chronic wound is a big ordeal, and a lengthy recovery and rehabilitation will likely follow. She has seen a general surgeon at [facility] (Dr. Nunez), and vascular surgeon Dr. Ganga Tong. This multidisciplinary team of surgeons determined the patient's candidacy for major myocutaneous flap reconstruction, though the patient was reluctant to proceed given the stated possible morbidities associated with the procedure. Influenza vaccine was not administered today. The patient is not a smoker. She stands 5 feet 7 inches tall. She weighs 198 pounds. Her BMI is 31, which places her in a class I weight category. Weight loss has been recommended. She is to collaborate with her primary care physician in this regard.
[2019-09-17 08:54] VITALS: BP 144/92; PULSE 89; RESP 18; TEMP 37; BMI 68.3
--- NOTE | 2019-09-17 09:10 | PCM.WC.HP ---
(1) History of uterine cancer Status: Chronic Current Visit: No Code(s): Z85.42 - Personal history of malignant neoplasm of other parts of uterus (2) History of melanoma Status: Chronic Current Visit: Yes Code(s): Z85.820 - Personal history of malignant melanoma of skin (3) Hyperlipidemia Status: Chronic Current Visit: No Code(s): E78.5 - Hyperlipidemia, unspecified (4) GERD (gastroesophageal reflux disease) Status: Chronic Current Visit: No Code(s): K21.9 - Gastro-esophageal reflux disease without esophagitis (5) Ulcer of right groin Status: Chronic Current Visit: Yes Qualifiers: Non-pressure ulcer stage: with fat layer exposed Code(s): L98.499 - Non-pressure chronic ulcer of skin of other sites with unspecified severity (6) Obesity (BMI 30.0-34.9) Status: Chronic Current Visit: No Code(s): E66.9 - Obesity, unspecified (7) Amputee, above knee Status: Chronic Current Visit: Yes Code(s): Z89.619 - Acquired absence of unspecified leg above knee (8) Soft tissue radionecrosis Status: Chronic Current Visit: Yes Code(s): L59.8 - Other specified disorders of the skin and subcutaneous tissue related to radiation; Y84.2 - Radiological procedure and radiotherapy as the cause of abnormal reaction of the patient, or of later complication, without mention of misadventure at the time of the procedure (9) soft tissue radiation injury Status: Chronic Current Visit: Yes History of Present Illness Date of Service: 09/17/19 Chief Complaint: 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 The patient underwent excision of her melanoma with lymphadenectomy in the right groin. She also underwent lengthy radiation treatments at the [facility] in [place], [place]. Melanoma recurred, and the patient was subsequently treated with monoclonal antibodies in 1984. 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 Treatment included local ulcer care and hyperbaric oxygen therapy. She underwent a total of nearly 90 treatments of hyperbaric oxygen therapy. It is known that she tolerated the therapies well, and derived significant benefit. She relates no history of claustrophobia, or other complications related to the hyperbaric oxygen therapy treatments. She has no history of barotrauma to lungs, ears, etc. Her medical history reveals no evidence of contraindications to hyperbaric oxygen therapy. The patient's current course of management includes a total of 90 sessions of hyperbaric oxygen therapy, which have been completed without total healing of the patient's right groin ulceration. EpiFix allografts have also been used for a series of 10 applications, without total healing. It appears as though the patient's current clinical course is mimicking that of the past, with wound healing which is very recalcitrant to conventional, conservative treatment measures. 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 She has undergone excision of melanoma from the right calf, with lymphadenectomy of the right groin in the 1969's. She subsequently required surgeries of the right thigh related to osteomyelitis, MRSA infection, and radiation injury to the right femoral artery. Ultimately, the patient required right above-knee amputation, performed in 2000. She also has a remote history of open reduction and internal fixation of a right ankle fracture. Allergies/Adverse Reactions: Allergies No Known Allergies Allergy (Verified 06/20/17 09:22) Home Medications: Ambulatory Orders Medication Instructions Recorded Famotidine 20 mg PO 06/20/17 Pravastatin [Pravachol] 20 mg PO DAILY 06/20/17 - Family History Maternal - - The patient's mother is 98 years of age and relatively healthy. The patient's father at age of 79 with a history of cardiomyopathy. Smoking Status: Former smoker Tobacco Use: Non-smoker Review of Systems Constitutional: Denies: Chills, Fever, Weight Change Eyes: Denies: Pain, Vision Change HEENT: Denies: Difficulty Hearing, Difficulty Swallowing, Sinus Congestion Cardiovascular: Denies: Chest Pain, Palpitations Respiratory: Denies: Cough, Shortness of Breath Gastrointestinal: Denies: Diarrhea, Nausea, Vomiting Genitourinary: Denies: Dysuria, Hematuria Endocrine: Denies: Heat/ Cold Intolerance, Polydipsia, Polyuria Hematologic/ Lymphatic: Denies: Easy Bruising, Easy Bleeding - Physical Exam Vital Signs Temp Pulse Resp BP 98.6 F 89 18 144/92 H 09/17/19 08:54 09/17/19 08:54 09/17/19 08:54 09/17/19 08:54 General: Alert, Oriented x3, Cooperative, No apparent distress, Well developed, Well nourished HEENT: Atraumatic, PERRLA, EOMI, Normocephalic Oral: Moist Mucosa Neck: No JVD Lungs: Normal air movement Abdomen: Non-Distended Extremities: No clubbing, No cyanosis, No edema, No Calf Tenderness, - - A well-healed right above-knee amputation stump is noted. The wound in the right groin persists. There is no sign of infection or cellulitis. Dimensions are documented elsewhere. There is a small amount of bioburden and nonviable tissue present. Wound Measurements and Assessment WC - Nurse 1 - General Ulcer Measurement Start: 09/10/19 08:34 Freq: Status: Active Protocol: Activity Type Activity Date Activity User E-Sign Co-Sign Detail Recorded Client Recorded Date Recorded By Document 09/17/19 08:54 [id number] 09/17/19 08:55 RB 09/17/19 08:54 Wound Center Nurse 1 [Ulcer Assessment] #8 R Groin -Combined with other wound No -Current Size (cm) - Length 1.9 -Current Size (cm) - Width 0.5 -Current Size (cm) - Depth 0.3 -Total Square Cm 0.95 -Photo Taken No -Tunneling No -Undermining/Tunneling No -Circular Undermining No -Exudate Amt Small -Exudate Type Serosanguineous -Wound Margin Thickened -Granulation Amt Medium (34-66%) -Granulation Quality [place] -Slough/Fibrin Yes -Necrosis Amt Small (1-33%) -Necrotic Tissue Type Adherent Slough -Structure Exposed N/A -Texture (Blanche-wound Skin Appearance) Assessed, Scarring -Moisture (Blanche-wound Skin Appearance Assessed ) -Color (Blanche-wound Skin Appearance) Assessed -Temperature (Blanche-wound Skin No Abnormality Appearance) (Pt Warm) -Tenderness on Palpation (Blanche-wound No Skin Appearance) -Ulcer Cleansing Wound Cleanser -Foul Odor after Cleansing No -Anesthetic Used 5% Lidocaine Gel - Nurse 2 - General Ulcer CM Notes Start: 09/10/19 08:34 Freq: Status: Active Protocol: Activity Type Activity Date Activity User E-Sign Co-Sign Detail Recorded Client Recorded Date Recorded By Document 09/17/19 09:03 DV [id number] 09/17/19 09:06 DV 09/17/19 09:03 Wound Center Nurse 2 [Procedure/Treatment] -Time 09:05 -Correct Patient Yes -Correct Side, Site, Position Yes -Correct Procedure Yes -Procedure Performed Yes -Type of Procedure Debridement -Clinical Debridement Subcutaneous -Post Debridement Size (cm) - Length 0.2 -Post Debridement Size (cm) - Width 0.2 -Post Debridement Size (cm) - Depth 0.1 -Total Square Cm 0.04 -Wound/Ulcer Outcome Not Healed -Ulcer Cleansing Rinsed/ Irrigated with Saline -Foul Odor after Cleansing No -Bioengineered Tissue No -Bleeding Controlled with Pressure -Offloading No -Treatment Response Procedure Tolerated Well [See Physician Procedure note for Specifics] Pain Scale: 0-10 Numeric [Pain] -Is Patient Pain Free? Yes Neurological: Cranial nerves II-XII grossly intact, Neuro grossly intact Psych/Mental Status: Normal Affect, Appropriate, Alert and oriented to time, place, person, mood and affect Debridement Note Post-Debridement Measurements/Treatment - Nurse 2 - General Ulcer CM Notes Start: 09/10/19 08:34 Freq: Status: Active Protocol: Activity Type Activity Date Activity User E-Sign Co-Sign Detail Recorded Client Recorded Date Recorded By Document 09/10/19 09:46 DV [id number] 09/10/19 09:49 DV Document 09/17/19 09:03 DV [id number] 09/17/19 09:06 DV 09/10/19 09/17/19 09:46 09:03 Wound Center Nurse 2 #8 R Groin -Time 09:47 09:05 -Correct Patient Yes Yes -Correct Side, Site, Position Yes Yes -Correct Procedure No Yes -Procedure Performed No Yes -Type of Procedure Debridement -Clinical Debridement Subcutaneous -Post Debridement Size (cm) - Length 0.2 -Post Debridement Size (cm) - Width 0.2 -Post Debridement Size (cm) - Depth 0.1 -Total Square Cm 0.04 -Wound/Ulcer Outcome Not Healed Not Healed -Ulcer Cleansing Rinsed/ Rinsed/ Irrigated with Irrigated with Saline Saline -Foul Odor after Cleansing No No -Bioengineered Tissue No No -Bleeding Controlled with Pressure Pressure -Offloading No No -Treatment Response Procedure Procedure Tolerated Well Tolerated Well Pain Scale: 0-10 Numeric Is Patient Pain Free? 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 In the 1970's, she was diagnosed with malignant melanoma of the right calf, with metastasis to lymph nodes in the right groin. She underwent excision of the melanoma with right groin lymphadenectomy. She was subsequently treated with a long series of radiation treatments to the right groin. During the days of her radiation treatment, it is suspected that the radiation techniques were somewhat early in their evolution, and quite likely that the patient received massive doses of radiation exposure, exceeding doses which would be considered appropriate today, with techniques which are primitive by today's standards. As a result, the patient has developed soft tissue radiation injury, and has previously been treated at our wound center in the past with a series of approximately 90 hyperbaric oxygen therapy treatments, in 2011. She presented with recurrence of soft tissue radionecrosis in the right groin. Hyperbaric oxygen therapy treatments were initiated, and the patient has undergone a series of 90 additional hyperbaric oxygen treatment sessions. She has shown mild benefit from the hyperbaric oxygen treatments. In review of the patient's past history, each treatment course has been rather protracted in terms of healing. The patient was previously referred for consultation at [facility] (Dr. Harding), which had been arranged by our facility. Medical records related to the patient's visit at [facility] resulted in no significant new recommendations for treatment or management. The patient remains on a well-balanced diet. Given that little progress has been made in recent months, I have contacted and spoken by phone with the Information Coder of the [facility], Dr. Bassam Alas. Dr. Alas has been very helpful. He has conferred with his colleague, Plastic Surgeon Dr. Cassius Whitman. Dr. Whitman has indicated his willingness to evaluate the patient, and the patient has now been evaluated by Dr. Frausto recently. The patient was very impressed with her interaction with the plastic surgeon. A number of options were discussed. Dr. Frausto has proposed a rectus abdominis myocutaneous flap. As a prelude to flap reconstruction, the patient underwent a CT angiogram at [facility] on December 13, 2018. She met with Dr. Frausto later that same day. The patient relates that the nature of the surgical procedure, and the recovery phase, has been described in detail, and it is anticipated to be quite challenging and lengthy. The patient wishes to consider all options prior to making a firm commitment to surgical intervention. She has most recently been evaluated by a retail gift card merchandising at [facility], who had further regulations regarding the patient's expectations for recovery from major surgical intervention. The patient is yet to make a commitment to undergoing major surgery and management of her right groin ulceration. The patient has also met with the vascular surgeon at [facility], Dr. Ganga Tong. Once again, the patient has been left with the impression that any surgery to reconstruct the area in the right groin could be fraught with complications and a lengthy recovery. This has given the patient pause and reason for concern, and she is to continue considering all options. At this juncture, however, the patient is doing relatively well. She had recently healed, but returned 3 weeks following discharge with re-ulceration at the former site. At this visit, the patient now appears to be healed once again. Plan: The patient presents today where it appears as though her right groin ulceration has healed. We are to continue with Mary applied topically, with Adaptic. At 12-hour intervals following application of the Mary, the patient is to apply Vaseline to the site. Her right groin ulceration appears to be healed, and may have recurred as a result of desiccation of the tissues, due to a lack of tissue hydration. Efforts are to be made now to maintain moisture at the former ulcer site, in an effort to maintain epithelialization that has occurred. Patient will return in 1 week for reassessment. The patient is to continue with a nutritious diet. Prior biopsies of the patient's right groin ulceration were negative for malignancy. The patient has been evaluated by Plastic Surgeon, Dr. Cassius Whitman, at [facility], and a team of other medical providers at [facility]. She has been given understanding that the surgical procedure necessary to result in coverage of her chronic wound is a big ordeal, and a lengthy recovery and rehabilitation will likely follow. She has seen a general surgeon at [facility] (Dr. Nunez), and vascular surgeon Dr. Ganga Tong. This multidisciplinary team of surgeons determined the patient's candidacy for major myocutaneous flap reconstruction, though the patient was reluctant to proceed given the stated possible morbidities associated with the procedure. Influenza vaccine was not administered today. The patient is not a smoker. She stands 5 feet 7 inches tall. She weighs 198 pounds. Her BMI is 31, which places her in a class I weight category. Weight loss has been recommended. She is to collaborate with her primary care physician in this regard.
[2019-09-24 08:38] VITALS: BP 147/87; PULSE 90; RESP 18; TEMP 36.6; BMI 68.3
--- NOTE | 2019-09-24 08:54 | PCM.WC.HP ---
(1) History of uterine cancer Status: Chronic Current Visit: No Code(s): Z85.42 - Personal history of malignant neoplasm of other parts of uterus (2) History of melanoma Status: Chronic Current Visit: Yes Code(s): Z85.820 - Personal history of malignant melanoma of skin (3) Hyperlipidemia Status: Chronic Current Visit: No Code(s): E78.5 - Hyperlipidemia, unspecified (4) GERD (gastroesophageal reflux disease) Status: Chronic Current Visit: No Code(s): K21.9 - Gastro-esophageal reflux disease without esophagitis (5) Ulcer of right groin Status: Chronic Current Visit: Yes Qualifiers: Non-pressure ulcer stage: with fat layer exposed Code(s): L98.499 - Non-pressure chronic ulcer of skin of other sites with unspecified severity (6) Obesity (BMI 30.0-34.9) Status: Chronic Current Visit: No Code(s): E66.9 - Obesity, unspecified (7) Amputee, above knee Status: Chronic Current Visit: Yes Code(s): Z89.619 - Acquired absence of unspecified leg above knee (8) Soft tissue radionecrosis Status: Chronic Current Visit: Yes Code(s): L59.8 - Other specified disorders of the skin and subcutaneous tissue related to radiation; Y84.2 - Radiological procedure and radiotherapy as the cause of abnormal reaction of the patient, or of later complication, without mention of misadventure at the time of the procedure (9) soft tissue radiation injury Status: Chronic Current Visit: Yes History of Present Illness Date of Service: 09/24/19 Chief Complaint: 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 The patient underwent excision of her melanoma with lymphadenectomy in the right groin. She also underwent lengthy radiation treatments at the [facility] in [place], [place]. Melanoma recurred, and the patient was subsequently treated with monoclonal antibodies in 1984. 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 Treatment included local ulcer care and hyperbaric oxygen therapy. She underwent a total of nearly 90 treatments of hyperbaric oxygen therapy. It is known that she tolerated the therapies well, and derived significant benefit. She relates no history of claustrophobia, or other complications related to the hyperbaric oxygen therapy treatments. She has no history of barotrauma to lungs, ears, etc. Her medical history reveals no evidence of contraindications to hyperbaric oxygen therapy. The patient's current course of management includes a total of 90 sessions of hyperbaric oxygen therapy, which have been completed without total healing of the patient's right groin ulceration. EpiFix allografts have also been used for a series of 10 applications, without total healing. It appears as though the patient's current clinical course is mimicking that of the past, with wound healing which is very recalcitrant to conventional, conservative treatment measures. 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 She has undergone excision of melanoma from the right calf, with lymphadenectomy of the right groin in the 1969's. She subsequently required surgeries of the right thigh related to osteomyelitis, MRSA infection, and radiation injury to the right femoral artery. Ultimately, the patient required right above-knee amputation, performed in 2000. She also has a remote history of open reduction and internal fixation of a right ankle fracture. Allergies/Adverse Reactions: Allergies No Known Allergies Allergy (Verified 06/20/17 09:22) Home Medications: Ambulatory Orders Medication Instructions Recorded Famotidine 20 mg PO 06/20/17 Pravastatin [Pravachol] 20 mg PO DAILY 06/20/17 - Family History Maternal - - The patient's mother is 98 years of age and relatively healthy. The patient's father at age of 79 with a history of cardiomyopathy. Smoking Status: Former smoker Tobacco Use: Non-smoker Review of Systems Constitutional: Denies: Chills, Fever, Weight Change Eyes: Denies: Pain, Vision Change HEENT: Denies: Difficulty Hearing, Difficulty Swallowing, Sinus Congestion Cardiovascular: Denies: Chest Pain, Palpitations Respiratory: Denies: Cough, Shortness of Breath Gastrointestinal: Denies: Diarrhea, Nausea, Vomiting Genitourinary: Denies: Dysuria, Hematuria Endocrine: Denies: Heat/ Cold Intolerance, Polydipsia, Polyuria Hematologic/ Lymphatic: Denies: Easy Bruising, Easy Bleeding - Physical Exam Vital Signs Temp Pulse Resp BP 97.9 F 90 18 147/87 H 09/24/19 08:38 09/24/19 08:38 09/24/19 08:38 09/24/19 08:38 General: Alert, Oriented x3, Cooperative, No apparent distress, Well developed, Well nourished HEENT: Atraumatic, PERRLA, EOMI, Normocephalic Oral: Moist Mucosa Neck: No JVD Lungs: Normal air movement Abdomen: Non-Distended Extremities: No clubbing, No cyanosis, No edema, No Calf Tenderness, - - A well-healed right above-knee amputation stump is noted. The ulceration in the right groin is now nearly totally healed. There has been significant epithelialization since the patient's last visit. There is no sign of infection or cellulitis. Dimensions are documented elsewhere. Skin: No rashes, No breakdown Wound Measurements and Assessment WC - Nurse 1 - General Ulcer Measurement Start: 09/10/19 08:34 Freq: Status: Active Protocol: Activity Type Activity Date Activity User E-Sign Co-Sign Detail Recorded Client Recorded Date Recorded By Document 09/24/19 08:38 [id number] 09/24/19 08:42 DL 09/24/19 08:38 Wound Center Nurse 1 [Ulcer Assessment] #8 R Groin -Current Size (cm) - Length 1 -Current Size (cm) - Width 0.5 -Current Size (cm) - Depth 0.1 -Total Square Cm 0.5 -Photo Taken No -Exudate Amt None Present -Wound Margin Thickened -Granulation Amt Large (67-100%) -Granulation Quality [place] -Necrosis Amt Small (1-33%) -Necrotic Tissue Type Adherent Slough -Structure Exposed N/A -Texture (Blanche-wound Skin Appearance) Scarring -Moisture (Blanche-wound Skin Appearance No Abnormality ) -Color (Blanche-wound Skin Appearance) No Abnormality -Temperature (Blanche-wound Skin No Abnormality Appearance) (Pt Warm) -Tenderness on Palpation (Blanche-wound No Skin Appearance) -Ulcer Cleansing Wound Cleanser -Foul Odor after Cleansing No -Anesthetic Used 4% Lidocaine Solution - Nurse 2 - General Ulcer CM Notes Start: 09/10/19 08:34 Freq: Status: Active Protocol: Activity Type Activity Date Activity User E-Sign Co-Sign Detail Recorded Client Recorded Date Recorded By Document 09/24/19 08:49 DV [id number] 09/24/19 08:51 DV 09/24/19 08:49 Wound Center Nurse 2 [Procedure/Treatment] -Time 08:50 -Correct Patient Yes -Correct Side, Site, Position Yes -Correct Procedure No -Procedure Performed No -Post Debridement Size (cm) - Length 0.1 -Post Debridement Size (cm) - Width 0.1 -Post Debridement Size (cm) - Depth 0.1 -Total Square Cm 0.01 -Wound/Ulcer Outcome Not Healed -Ulcer Cleansing Rinsed/ Irrigated with Saline -Foul Odor after Cleansing No -Bioengineered Tissue No -Bleeding Controlled with Pressure -Offloading No -Treatment Response Procedure Tolerated Well [See Physician Procedure note for Specifics] Pain Scale: 0-10 Numeric [Pain] -Is Patient Pain Free? Yes Musculoskeletal: No Muscle Wasting Neurological: Cranial nerves II-XII grossly intact, Neuro grossly intact Psych/Mental Status: Normal Affect, Appropriate, Alert and oriented to time, place, person, mood and affect Debridement Note Post-Debridement Measurements/Treatment - Nurse 2 - General Ulcer CM Notes Start: 09/10/19 08:34 Freq: Status: Active Protocol: Activity Type Activity Date Activity User E-Sign Co-Sign Detail Recorded Client Recorded Date Recorded By Document 09/10/19 09:46 DV [id number] 09/10/19 09:49 DV Document 09/17/19 09:03 DV [id number] 09/17/19 09:06 DV Document 09/24/19 08:49 DV [id number] 09/24/19 08:51 DV 09/10/19 09/17/19 09/24/19 09:46 09:03 08:49 Wound Center Nurse 2 #8 R Groin -Time 09:47 09:05 08:50 -Correct Patient Yes Yes Yes -Correct Side, Site, Position Yes Yes Yes -Correct Procedure No Yes No -Procedure Performed No Yes No -Type of Procedure Debridement -Clinical Debridement Subcutaneous -Post Debridement Size (cm) - Length 0.2 0.1 -Post Debridement Size (cm) - Width 0.2 0.1 -Post Debridement Size (cm) - Depth 0.1 0.1 -Total Square Cm 0.04 0.01 -Wound/Ulcer Outcome Not Healed Not Healed Not Healed -Ulcer Cleansing Rinsed/ Rinsed/ Rinsed/ Irrigated with Irrigated with Irrigated with Saline Saline Saline -Foul Odor after Cleansing No No No -Bioengineered Tissue No No No -Bleeding Controlled with Pressure Pressure Pressure -Offloading No No No -Treatment Response Procedure Procedure Procedure Tolerated Well Tolerated Well Tolerated Well Pain Scale: 0-10 Numeric Is Patient Pain Free? 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 In the 1970's, she was diagnosed with malignant melanoma of the right calf, with metastasis to lymph nodes in the right groin. She underwent excision of the melanoma with right groin lymphadenectomy. She was subsequently treated with a long series of radiation treatments to the right groin. During the days of her radiation treatment, it is suspected that the radiation techniques were somewhat early in their evolution, and quite likely that the patient received massive doses of radiation exposure, exceeding doses which would be considered appropriate today, with techniques which are primitive by today's standards. As a result, the patient has developed soft tissue radiation injury, and has previously been treated at our wound center in the past with a series of approximately 90 hyperbaric oxygen therapy treatments, in 2011. She presented with recurrence of soft tissue radionecrosis in the right groin. Hyperbaric oxygen therapy treatments were initiated, and the patient has undergone a series of 90 additional hyperbaric oxygen treatment sessions. She has shown mild benefit from the hyperbaric oxygen treatments. In review of the patient's past history, each treatment course has been rather protracted in terms of healing. The patient was previously referred for consultation at [facility] (Dr. Harding), which had been arranged by our facility. Medical records related to the patient's visit at [facility] resulted in no significant new recommendations for treatment or management. The patient remains on a well-balanced diet. Given that little progress has been made in recent months, I have contacted and spoken by phone with the [employer] Director of the [facility], Dr. Bassam Alas. Dr. Alas has been very helpful. He has conferred with his colleague, Plastic Surgeon Dr. Cassius Whitman. Dr. Whitman has indicated his willingness to evaluate the patient, and the patient has now been evaluated by Dr. Frausto recently. The patient was very impressed with her interaction with the plastic surgeon. A number of options were discussed. Dr. Frausto has proposed a rectus abdominis myocutaneous flap. As a prelude to flap reconstruction, the patient underwent a CT angiogram at [facility] on December 13, 2018. She met with Dr. Frausto later that same day. The patient relates that the nature of the surgical procedure, and the recovery phase, has been described in detail, and it is anticipated to be quite challenging and lengthy. The patient wishes to consider all options prior to making a firm commitment to surgical intervention. She has most recently been evaluated by a placement interviewer at [facility], who had further regulations regarding the patient's expectations for recovery from major surgical intervention. The patient is yet to make a commitment to undergoing major surgery and management of her right groin ulceration. The patient has also met with the vascular surgeon at [facility], Dr. Ganga Tong. Once again, the patient has been left with the impression that any surgery to reconstruct the area in the right groin could be fraught with complications and a lengthy recovery. This has given the patient pause and reason for concern, and she is to continue considering all options. At this juncture, however, the patient is doing well. She had recently healed, but returned 3 weeks following discharge with re-ulceration at the former site. At this visit, the patient now appears to be nearly healed once again. Plan: The patient presents today where it appears as though her right groin ulceration has nearly healed. We are to continue with Mary applied topically, with Adaptic. At 12-hour intervals following application of the Mary, the patient is to apply Vaseline to the site. Her right groin ulceration appears to be nearly healed, and may have recurred as a result of desiccation of the tissues, due to a lack of tissue hydration. Efforts are to be made now to maintain moisture at the former ulcer site, in an effort to maintain epithelialization that has occurred. Patient will return in 1 week for reassessment. The patient is to continue with a nutritious diet. Prior biopsies of the patient's right groin ulceration were negative for malignancy. The patient has been evaluated by Plastic Surgeon, Dr. Cassius Whitman, at [facility], and a team of other medical providers at [facility]. She has been given understanding that the surgical procedure necessary to result in coverage of her chronic wound is a big ordeal, and a lengthy recovery and rehabilitation will likely follow. She has seen a general surgeon at [facility] (Dr. Nunez), and vascular surgeon Dr. Ganga Tong. This multidisciplinary team of surgeons determined the patient's candidacy for major myocutaneous flap reconstruction, though the patient was reluctant to proceed given the stated possible morbidities associated with the procedure. Influenza vaccine was not administered today. The patient is not a smoker. She stands 5 feet 7 inches tall. She weighs 198 pounds. Her BMI is 31, which places her in a class I weight category. Weight loss has been recommended. She is to collaborate with her primary care physician in this regard.
[2019-10-08 08:33] VITALS: BP 162/83; PULSE 88; RESP 18; TEMP 36.3; BMI 68.3
--- NOTE | 2019-10-08 09:04 | PCM.WC.HP ---
(1) History of uterine cancer Status: Chronic Current Visit: No Code(s): Z85.42 - Personal history of malignant neoplasm of other parts of uterus (2) History of melanoma Status: Chronic Current Visit: Yes Code(s): Z85.820 - Personal history of malignant melanoma of skin (3) Hyperlipidemia Status: Chronic Current Visit: No Code(s): E78.5 - Hyperlipidemia, unspecified (4) GERD (gastroesophageal reflux disease) Status: Chronic Current Visit: No Code(s): K21.9 - Gastro-esophageal reflux disease without esophagitis (5) Ulcer of right groin Status: Chronic Current Visit: Yes Qualifiers: Non-pressure ulcer stage: with fat layer exposed Code(s): L98.499 - Non-pressure chronic ulcer of skin of other sites with unspecified severity (6) Obesity (BMI 30.0-34.9) Status: Chronic Current Visit: No Code(s): E66.9 - Obesity, unspecified (7) Amputee, above knee Status: Chronic Current Visit: Yes Code(s): Z89.619 - Acquired absence of unspecified leg above knee (8) Soft tissue radionecrosis Status: Chronic Current Visit: Yes Code(s): L59.8 - Other specified disorders of the skin and subcutaneous tissue related to radiation; Y84.2 - Radiological procedure and radiotherapy as the cause of abnormal reaction of the patient, or of later complication, without mention of misadventure at the time of the procedure (9) soft tissue radiation injury Status: Chronic Current Visit: Yes History of Present Illness Date of Service: 10/08/19 Chief Complaint: 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 The patient underwent excision of her melanoma with lymphadenectomy in the right groin. She also underwent lengthy radiation treatments at the [facility] in [place], [place]. Melanoma recurred, and the patient was subsequently treated with monoclonal antibodies in 1984. 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 Treatment included local ulcer care and hyperbaric oxygen therapy. She underwent a total of nearly 90 treatments of hyperbaric oxygen therapy. It is known that she tolerated the therapies well, and derived significant benefit. She relates no history of claustrophobia, or other complications related to the hyperbaric oxygen therapy treatments. She has no history of barotrauma to lungs, ears, etc. Her medical history reveals no evidence of contraindications to hyperbaric oxygen therapy. The patient's current course of management includes a total of 90 sessions of hyperbaric oxygen therapy, which have been completed without total healing of the patient's right groin ulceration. EpiFix allografts have also been used for a series of 10 applications, without total healing. It appears as though the patient's current clinical course is mimicking that of the past, with wound healing which is very recalcitrant to conventional, conservative treatment measures. 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 She has undergone excision of melanoma from the right calf, with lymphadenectomy of the right groin in the 1969's. She subsequently required surgeries of the right thigh related to osteomyelitis, MRSA infection, and radiation injury to the right femoral artery. Ultimately, the patient required right above-knee amputation, performed in 2000. She also has a remote history of open reduction and internal fixation of a right ankle fracture. Allergies/Adverse Reactions: Allergies No Known Allergies Allergy (Verified 06/20/17 09:22) Home Medications: Ambulatory Orders Medication Instructions Recorded Famotidine 20 mg PO 06/20/17 Pravastatin [Pravachol] 20 mg PO DAILY 06/20/17 - Family History Maternal - - The patient's mother is 98 years of age and relatively healthy. The patient's father at age of 79 with a history of cardiomyopathy. Smoking Status: Former smoker Tobacco Use: Non-smoker Review of Systems Constitutional: Denies: Chills, Fever, Weight Change Eyes: Denies: Pain, Vision Change HEENT: Denies: Difficulty Hearing, Difficulty Swallowing, Sinus Congestion Cardiovascular: Denies: Chest Pain, Palpitations Respiratory: Denies: Cough, Shortness of Breath Gastrointestinal: Denies: Diarrhea, Nausea, Vomiting Genitourinary: Denies: Dysuria, Hematuria Endocrine: Denies: Heat/ Cold Intolerance, Polydipsia, Polyuria Hematologic/ Lymphatic: Denies: Easy Bruising, Easy Bleeding - Physical Exam Vital Signs Temp Pulse Resp BP 97.3 F L 88 18 162/83 H 10/08/19 08:33 10/08/19 08:33 10/08/19 08:33 10/08/19 08:33 General: Alert, Oriented x3, Cooperative, No apparent distress, Well developed, Well nourished HEENT: Atraumatic, PERRLA, EOMI, Normocephalic Oral: Moist Mucosa Neck: No JVD Lungs: Normal air movement Abdomen: Non-Distended Extremities: No clubbing, No cyanosis, No edema, No Calf Tenderness, - - A well-healed right above-knee amputation stump is noted. The ulceration of the right groin persists. It has diminished in size. There has been notable decrease in the length of the ulceration. The base of the ulceration is generally pink and healthy in appearance, with a mild amount of bioburden. There is no sign of infection or cellulitis. The ulceration appears to be reasonably well vascularized. Skin: No rashes Wound Measurements and Assessment WC - Nurse 1 - General Ulcer Measurement Start: 09/10/19 08:34 Freq: Status: Active Protocol: Activity Type Activity Date Activity User E-Sign Co-Sign Detail Recorded Client Recorded Date Recorded By Document 10/08/19 08:33 BS [id number] 10/08/19 08:45 BS 10/08/19 08:33 Wound Center Nurse 1 [Ulcer Assessment] #8 R Groin -Combined with other wound No -Current Size (cm) - Length 1.1 -Current Size (cm) - Width 0.5 -Current Size (cm) - Depth 0.2 -Total Square Cm 0.55 -Photo Taken No -Exudate Amt None Present -Granulation Quality [place],Red -Slough/Fibrin No -Texture (Blanche-wound Skin Appearance) Assessed, Scarring -Moisture (Blanche-wound Skin Appearance Assessed,Dry/ ) Scaly -Temperature (Blanche-wound Skin No Abnormality Appearance) (Pt Warm) -Tenderness on Palpation (Blanche-wound No Skin Appearance) -Ulcer Cleansing Soap and water -Foul Odor after Cleansing No WC - Nurse 2 - General Ulcer CM Notes Start: 09/10/19 08:34 Freq: Status: Active Protocol: Activity Type Activity Date Activity User E-Sign Co-Sign Detail Recorded Client Recorded Date Recorded By Document 10/08/19 08:54 DV [id number] 10/08/19 08:56 DV 10/08/19 08:54 Wound Center Nurse 2 [Procedure/Treatment] -Time 08:55 -Correct Patient Yes -Correct Side, Site, Position Yes -Correct Procedure Yes -Procedure Performed Yes -Type of Procedure Debridement -Clinical Debridement Subcutaneous -Post Debridement Size (cm) - Length 1.0 -Post Debridement Size (cm) - Width 0.2 -Post Debridement Size (cm) - Depth 0.2 -Total Square Cm 0.20 -Wound/Ulcer Outcome Not Healed -Ulcer Cleansing Rinsed/ Irrigated with Saline -Foul Odor after Cleansing No -Bioengineered Tissue No -Bleeding Controlled with Pressure -Offloading No -Treatment Response Procedure Tolerated Well [See Physician Procedure note for Specifics] Pain Scale: 0-10 Numeric [Pain] -Is Patient Pain Free? Yes Musculoskeletal: No Muscle Wasting Neurological: Cranial nerves II-XII grossly intact, Neuro grossly intact Psych/Mental Status: Normal Affect, Appropriate, Alert and oriented to time, place, person, mood and affect Debridement Note Post-Debridement Measurements/Treatment WC - Nurse 2 - General Ulcer CM Notes Start: 09/10/19 08:34 Freq: Status: Active Protocol: Activity Type Activity Date Activity User E-Sign Co-Sign Detail Recorded Client Recorded Date Recorded By Document 09/10/19 09:46 DV [id number] 09/10/19 09:49 DV Document 09/17/19 09:03 DV [id number] 09/17/19 09:06 DV Document 09/24/19 08:49 DV [id number] 09/24/19 08:51 DV Document 10/08/19 08:54 DV [id number] 10/08/19 08:56 DV 09/10/19 09/17/19 09/24/19 09:46 09:03 08:49 Wound Center Nurse 2 #8 R Groin -Time 09:47 09:05 08:50 -Correct Patient Yes Yes Yes -Correct Side, Site, Position Yes Yes Yes -Correct Procedure No Yes No -Procedure Performed No Yes No -Type of Procedure Debridement -Clinical Debridement Subcutaneous -Post Debridement Size (cm) - Length 0.2 0.1 -Post Debridement Size (cm) - Width 0.2 0.1 -Post Debridement Size (cm) - Depth 0.1 0.1 -Total Square Cm 0.04 0.01 -Wound/Ulcer Outcome Not Healed Not Healed Not Healed -Ulcer Cleansing Rinsed/ Rinsed/ Rinsed/ Irrigated with Irrigated with Irrigated with Saline Saline Saline -Foul Odor after Cleansing No No No -Bioengineered Tissue No No No -Bleeding Controlled with Pressure Pressure Pressure -Offloading No No No -Treatment Response Procedure Procedure Procedure Tolerated Well Tolerated Well Tolerated Well Pain Scale: 0-10 Numeric Is Patient Pain Free? Yes Yes Yes 10/08/19 08:54 Wound Center Nurse 2 #8 R Groin -Time 08:55 -Correct Patient Yes -Correct Side, Site, Position Yes -Correct Procedure Yes -Procedure Performed Yes -Type of Procedure Debridement -Clinical Debridement Subcutaneous -Post Debridement Size (cm) - Length 1.0 -Post Debridement Size (cm) - Width 0.2 -Post Debridement Size (cm) - Depth 0.2 -Total Square Cm 0.20 -Wound/Ulcer Outcome Not Healed -Ulcer Cleansing Rinsed/ Irrigated with Saline -Foul Odor after Cleansing No -Bioengineered Tissue No -Bleeding Controlled with Pressure -Offloading No -Treatment Response Procedure Tolerated Well Pain Scale: 0-10 Numeric Is Patient Pain Free? 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 In the 1970's, she was diagnosed with malignant melanoma of the right calf, with metastasis to lymph nodes in the right groin. She underwent excision of the melanoma with right groin lymphadenectomy. She was subsequently treated with a long series of radiation treatments to the right groin. During the days of her radiation treatment, it is suspected that the radiation techniques were somewhat early in their evolution, and quite likely that the patient received massive doses of radiation exposure, exceeding doses which would be considered appropriate today, with techniques which are primitive by today's standards. As a result, the patient has developed soft tissue radiation injury, and has previously been treated at our wound center in the past with a series of approximately 90 hyperbaric oxygen therapy treatments, in 2011. She presented with recurrence of soft tissue radionecrosis in the right groin. Hyperbaric oxygen therapy treatments were initiated, and the patient has undergone a series of 90 additional hyperbaric oxygen treatment sessions. She has shown mild benefit from the hyperbaric oxygen treatments. In review of the patient's past history, each treatment course has been rather protracted in terms of healing. The patient was previously referred for consultation at [facility] (Dr. Harding), which had been arranged by our facility. Medical records related to the patient's visit at [facility] resulted in no significant new recommendations for treatment or management. The patient remains on a well-balanced diet. Given that little progress has been made in recent months, I have contacted and spoken by phone with the Organic Section Technical Lead of the [facility], Dr. Bassam Alas. Dr. Alas has been very helpful. He has conferred with his colleague, Plastic Surgeon Dr. Cassius Whitman. Dr. Whitman has indicated his willingness to evaluate the patient, and the patient has now been evaluated by Dr. Frausto recently. The patient was very impressed with her interaction with the plastic surgeon. A number of options were discussed. Dr. Frausto has proposed a rectus abdominis myocutaneous flap. As a prelude to flap reconstruction, the patient underwent a CT angiogram at [facility] on December 13, 2018. She met with Dr. Frausto later that same day. The patient relates that the nature of the surgical procedure, and the recovery phase, has been described in detail, and it is anticipated to be quite challenging and lengthy. The patient wishes to consider all options prior to making a firm commitment to surgical intervention. She has most recently been evaluated by a merchandise shopper at [facility], who had further regulations regarding the patient's expectations for recovery from major surgical intervention. The patient is yet to make a commitment to undergoing major surgery and management of her right groin ulceration. The patient has also met with the vascular surgeon at [facility], Dr. Ganga Tong. Once again, the patient has been left with the impression that any surgery to reconstruct the area in the right groin could be fraught with complications and a lengthy recovery. This has given the patient pause and reason for concern, and she is to continue considering all options. At this juncture, however, the patient is doing well. She had recently healed, but returned 3 weeks following discharge with re-ulceration at the former site. Plan: The patient presents today where it appears as though her right groin ulceration persists, but with continuing improvement. We are to continue with Mary applied topically, with Adaptic, on a daily basis. Her right groin ulceration appears to be improving. Patient will return in 2 weekS for reassessment. The patient is to continue with a nutritious diet. Prior biopsies of the patient's right groin ulceration were negative for malignancy. The patient has been evaluated by Plastic Surgeon, Dr. Cassius Whitman, at [facility], and a team of other medical providers at [facility]. She has been given understanding that the surgical procedure necessary to result in coverage of her chronic wound is a big ordeal, and a lengthy recovery and rehabilitation will likely follow. She has seen a general surgeon at [facility] (Dr. Nunez), and vascular surgeon Dr. Ganga Tong. This multidisciplinary team of surgeons determined the patient's candidacy for major myocutaneous flap reconstruction, though the patient was reluctant to proceed given the stated possible morbidities associated with the procedure. Rather, she has opted to continue with conservative management of her right groin ulceration. Influenza vaccine was not administered today. The patient is not a smoker. She stands 5 feet 7 inches tall. She weighs 198 pounds. Her BMI is 31, which places her in a class I weight category. Weight loss has been recommended. She is to collaborate with her primary care physician in this regard.
== END 2019-10-08 23:59 ==
LOC: WC 08:30
PROVIDERS: Family Provider Family Medicine; PCP Family Medicine; Referring Provider Surgery; Visit Provider Surgery
DX: L59.8 Other specified disorders of the skin and subcutaneous tissue related to radiation (principal); Y84.2 Radiological procedure and radiotherapy as the cause of abnormal reaction of the patient, or of later complication, without mention of misadventure at the time of the procedure; E66.9 Obesity, unspecified; E78.5 Hyperlipidemia, unspecified; K21.9 Gastro-esophageal reflux disease without esophagitis; L98.492 Non-pressure chronic ulcer of skin of other sites with fat layer exposed; Z86.14 Personal history of Methicillin resistant Staphylococcus aureus infection; Z89.619 Acquired absence of unspecified leg above knee; Z85.42 Personal history of malignant neoplasm of other parts of uterus; Z85.820 Personal history of malignant melanoma of skin; Z79.899 Other long term (current) drug therapy; Z87.891 Personal history of nicotine dependence
CPT/HCPCS: 11042; 99212; 99213; G0463

== ENCOUNTER 2019-10-29 08:30 | Outpatient (RCR) | payer OTHER, SELFPAY ==
[2019-10-09 00:22] VITALS: BP 162/83; PULSE 88; RESP 18; TEMP 36.3
--- NOTE | 2019-10-22 10:56 | PCM.WC.HP ---
(1) History of uterine cancer Status: Chronic Current Visit: No Code(s): Z85.42 - Personal history of malignant neoplasm of other parts of uterus (2) History of melanoma Status: Chronic Current Visit: Yes Code(s): Z85.820 - Personal history of malignant melanoma of skin (3) Hyperlipidemia Status: Chronic Current Visit: No Code(s): E78.5 - Hyperlipidemia, unspecified (4) GERD (gastroesophageal reflux disease) Status: Chronic Current Visit: No Code(s): K21.9 - Gastro-esophageal reflux disease without esophagitis (5) Ulcer of right groin Status: Chronic Current Visit: Yes Qualifiers: Non-pressure ulcer stage: with fat layer exposed Code(s): L98.499 - Non-pressure chronic ulcer of skin of other sites with unspecified severity (6) Obesity (BMI 30.0-34.9) Status: Chronic Current Visit: No Code(s): E66.9 - Obesity, unspecified (7) Amputee, above knee Status: Chronic Current Visit: Yes Code(s): Z89.619 - Acquired absence of unspecified leg above knee (8) Soft tissue radionecrosis Status: Chronic Current Visit: Yes Code(s): L59.8 - Other specified disorders of the skin and subcutaneous tissue related to radiation; Y84.2 - Radiological procedure and radiotherapy as the cause of abnormal reaction of the patient, or of later complication, without mention of misadventure at the time of the procedure (9) soft tissue radiation injury Status: Chronic Current Visit: Yes History of Present Illness Date of Service: 10/22/19 - TeleHealth Visit Chief Complaint: 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 Of significance, the patient was diagnosed with melanoma of the right calf in the s. 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 The patient underwent excision of her melanoma with lymphadenectomy in the right groin. She also underwent lengthy radiation treatments at the [facility] in [place], [place]. Melanoma recurred, and the patient was subsequently treated with monoclonal antibodies in 1984. 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 Treatment included local ulcer care and hyperbaric oxygen therapy. She underwent a total of nearly 90 treatments of hyperbaric oxygen therapy. It is known that she tolerated the therapies well, and derived significant benefit. She relates no history of claustrophobia, or other complications related to the hyperbaric oxygen therapy treatments. She has no history of barotrauma to lungs, ears, etc. Her medical history reveals no evidence of contraindications to hyperbaric oxygen therapy. The patient's current course of management includes a total of 90 sessions of hyperbaric oxygen therapy, which have been completed without total healing of the patient's right groin ulceration. EpiFix allografts have also been used for a series of 10 applications, without total healing. It appears as though the patient's current clinical course is mimicking that of the past, with wound healing which is very recalcitrant to conventional, conservative treatment measures. 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 She has undergone excision of melanoma from the right calf, with lymphadenectomy of the right groin in the 1969's. She subsequently required surgeries of the right thigh related to osteomyelitis, MRSA infection, and radiation injury to the right femoral artery. Ultimately, the patient required right above-knee amputation, performed in 2000. She also has a remote history of open reduction and internal fixation of a right ankle fracture. Allergies/Adverse Reactions: Allergies No Known Allergies Allergy (Verified 06/20/17 09:22) Home Medications: Ambulatory Orders Medication Instructions Recorded Famotidine 20 mg PO 06/20/17 Pravastatin [Pravachol] 20 mg PO DAILY 06/20/17 - Family History Maternal - - The patient's mother is 98 years of age and relatively healthy. The patient's father at age of 79 with a history of cardiomyopathy. Smoking Status: Former smoker Tobacco Use: Non-smoker Review of Systems Constitutional: Denies: Chills, Fever, Weight Change - Physical Exam Vital Signs Temp Pulse Resp BP 97.3 F L 88 18 162/83 H 10/09/19 00:22 10/09/19 00:22 10/09/19 00:22 10/09/19 00:22 General: Alert, Oriented x3, Cooperative, No apparent distress, Well developed, Well nourished, - - The patient is alert, appropriate, and conversant. Her coloring appears normal. She appears to be in good spirits. She is communicative. The patient was able to take her own temperature, which was 97.8. She also took her own blood pressure measurement, which was 150/65. When questioned specifically asked to COVID?19 symptomatology, the patient denied such symptoms. HEENT: Atraumatic, PERRLA, EOMI, Normocephalic Lungs: Normal air movement, - - Respirations appear normal and unlabored Extremities: - - The patient was able to demonstrate the right groin ulceration using her mobile phone. By appearances, there was no evidence of infection. There was no obvious erythema or cellulitis. By virtue of numerous previous visits, it could be seen that the size and appearance of the ulceration was little changed from that which was noted previously, and dimensions appear to be essentially unchanged. Skin: No rashes, - - No apparent generalized skin abnormalities. Neurological: Cranial nerves II-XII grossly intact, Neuro grossly intact Psych/Mental Status: Normal Affect, Appropriate, Alert and oriented to time, place, person, mood and affect Debridement Note No debridement was completed today - This was a telehealth visit. Assessment/Plan Active Problems History of melanoma (Chronic) Ulcer of right groin (Chronic) Amputee, above knee (Chronic) Soft tissue radionecrosis (Chronic) soft tissue radiation injury (Chronic) Assessment: Today's visit was a telehealth encounter, using both audio and visual capabilities. Patient granted her consent to proceed. The telehealth visit was conducted using [employer]. 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 My location was at the [facility]. The telehealth visit was initiated at 10:30 AM, and was completed at 10:52 AM. Patient denied any recent changes in the status of her ulceration. She indicates that there has been only minimal, occasional drainage. She has been using Mary and Adaptic topically, changed daily. This is a 64-year-old female with a somewhat complicated and complex past medical history, documented above. In the 1970's, she was diagnosed with malignant melanoma of the right calf, with metastasis to lymph nodes in the right groin. She underwent excision of the melanoma with right groin lymphadenectomy. She was subsequently treated with a long series of radiation treatments to the right groin. During the days of her radiation treatment, it is suspected that the radiation techniques were somewhat early in their evolution, and quite likely that the patient received massive doses of radiation exposure, exceeding doses which would be considered appropriate today, with techniques which are primitive by today's standards. As a result, the patient has developed soft tissue radiation injury, and has previously been treated at our wound center in the past with a series of approximately 90 hyperbaric oxygen therapy treatments, in 2011. She presented with recurrence of soft tissue radionecrosis in the right groin. Hyperbaric oxygen therapy treatments were initiated, and the patient has undergone a series of 90 additional hyperbaric oxygen treatment sessions. She has shown mild benefit from the hyperbaric oxygen treatments. In review of the patient's past history, each treatment course has been rather protracted in terms of healing. The patient was previously referred for consultation at [facility] (Dr. Harding), which had been arranged by our facility. Medical records related to the patient's visit at [facility] resulted in no significant new recommendations for treatment or management. The patient remains on a well-balanced diet. I have contacted and spoken by phone with the Full Charge Bookkeeper of the [facility], Dr. Bassam Alas. Dr. Alas has been very helpful. He has conferred with his colleague, Plastic Surgeon Dr. Cassius Whitman. Dr. Whitman has indicated his willingness to evaluate the patient, and the patient has now been evaluated by Dr. Frausto recently. The patient was very impressed with her interaction with the plastic surgeon. A number of options were discussed. Dr. Frausto has proposed a rectus abdominis myocutaneous flap. As a prelude to flap reconstruction, the patient underwent a CT angiogram at [facility] on December 13, 2018. She met with Dr. Frausto later that same day. The patient relates that the nature of the surgical procedure, and the recovery phase, has been described in detail, and it is anticipated to be quite challenging and lengthy. The patient wishes to consider all options prior to making a firm commitment to surgical intervention. She has most recently been evaluated by a diamond grader at [facility], who had further regulations regarding the patient's expectations for recovery from major surgical intervention. The patient is yet to make a commitment to undergoing major surgery and management of her right groin ulceration. The patient has also met with the vascular surgeon at [facility], Dr. Ganga Tong. Once again, the patient has been left with the impression that any surgery to reconstruct the area in the right groin could be fraught with complications and a lengthy recovery. This has given the patient pause and reason for concern, and she is to continue considering all options. At this juncture, however, the patient is doing well. She had recently healed, but returned 3 weeks following discharge with re-ulceration at the former site. Plan: We are to continue with Mary applied topically, with Adaptic, on a daily basis. Her right groin ulceration appears to be improving. Patient will return in 1 week for reassessment in our facility. The patient is to continue with a nutritious diet. Prior biopsies of the patient's right groin ulceration were negative for malignancy. The patient has been evaluated by Plastic Surgeon, Dr. Cassius Whitman, at [facility], and a team of other medical providers at [facility]. She has been given understanding that the surgical procedure necessary to result in coverage of her chronic wound is a big ordeal, and a lengthy recovery and rehabilitation will likely follow. She has seen a general surgeon at [facility] (Dr. Nunez), and vascular surgeon Dr. Ganga Tong. This multidisciplinary team of surgeons determined the patient's candidacy for major myocutaneous flap reconstruction, though the patient was reluctant to proceed given the stated possible morbidities associated with the procedure. Rather, she has opted to continue with conservative management of her right groin ulceration. Influenza vaccine was not administered today. The patient is not a smoker. She stands 5 feet 7 inches tall. She weighs 198 pounds. Her BMI is 31, which places her in a class I weight category. Weight loss has been recommended. She is to collaborate with her primary care physician in this regard.
[2019-10-29 08:32] VITALS: BP 148/75; PULSE 88; RESP 18; TEMP 36.4; BMI 68.3
--- NOTE | 2019-10-29 11:38 | HP.PCM_ITS ---
(1) History of uterine cancer Status: Chronic Current Visit: No Code(s): Z85.42 - Personal history of malignant neoplasm of other parts of uterus (2) History of melanoma Status: Chronic Current Visit: Yes Code(s): Z85.820 - Personal history of malignant melanoma of skin (3) Hyperlipidemia Status: Chronic Current Visit: No Code(s): E78.5 - Hyperlipidemia, unspecified (4) GERD (gastroesophageal reflux disease) Status: Chronic Current Visit: No Code(s): K21.9 - Gastro-esophageal reflux disease without esophagitis (5) Ulcer of right groin Status: Chronic Current Visit: Yes Qualifiers: Non-pressure ulcer stage: with fat layer exposed Code(s): L98.499 - Non-pressure chronic ulcer of skin of other sites with unspecified severity (6) Obesity (BMI 30.0-34.9) Status: Chronic Current Visit: No Code(s): E66.9 - Obesity, unspecified (7) Amputee, above knee Status: Chronic Current Visit: Yes Code(s): Z89.619 - Acquired absence of unspecified leg above knee (8) Soft tissue radionecrosis Status: Chronic Current Visit: Yes Code(s): L59.8 - Other specified disorders of the skin and subcutaneous tissue related to radiation; Y84.2 - Radiological procedure and radiotherapy as the cause of abnormal reaction of the patient, or of later complication, without mention of misadventure at the time of the procedure (9) soft tissue radiation injury Status: Chronic Current Visit: Yes History of Present Illness Date of Service: 10/29/19 Chief Complaint: 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 The patient underwent excision of her melanoma with lymphadenectomy in the right groin. She also underwent lengthy radiation treatments at the [facility] in [place], [place]. Melanoma recurred, and the patient was subsequently treated with monoclonal antibodies in 1984. 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 Treatment included local ulcer care and hyperbaric oxygen therapy. She underwent a total of nearly 90 treatments of hyperbaric oxygen therapy. It is known that she tolerated the therapies well, and derived significant benefit. She relates no history of claustrophobia, or other complications related to the hyperbaric oxygen therapy treatments. She has no history of barotrauma to lungs, ears, etc. Her medical history reveals no evidence of contraindications to hyperbaric oxygen therapy. The patient's current course of management includes a total of 90 sessions of hyperbaric oxygen therapy, which have been completed without total healing of the patient's right groin ulceration. EpiFix allografts have also been used for a series of 10 applications, without total healing. It appears as though the patient's current clinical course is mimicking that of the past, with wound healing which is very recalcitrant to conventional, conservative treatment measures. 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 She has undergone excision of melanoma from the right calf, with lymphadenectomy of the right groin in the 1969's. She subsequently required surgeries of the right thigh related to osteomyelitis, MRSA infection, and radiation injury to the right femoral artery. Ultimately, the patient required right above-knee amputation, performed in 2000. She also has a remote history of open reduction and internal fixation of a right ankle fracture. Allergies/Adverse Reactions: Allergies No Known Allergies Allergy (Verified 06/20/17 09:22) Home Medications: Ambulatory Orders Medication Instructions Recorded Famotidine 20 mg PO 06/20/17 Pravastatin [Pravachol] 20 mg PO DAILY 06/20/17 - Family History Maternal - - The patient's mother is 98 years of age and relatively healthy. The patient's father at age of 79 with a history of cardiomyopathy. Smoking Status: Former smoker Tobacco Use: Non-smoker Review of Systems Constitutional: Denies: Chills, Fever, Weight Change Eyes: Denies: Pain, Vision Change HEENT: Denies: Difficulty Hearing, Difficulty Swallowing, Sinus Congestion Cardiovascular: Denies: Chest Pain, Palpitations Respiratory: Denies: Cough, Shortness of Breath Gastrointestinal: Denies: Diarrhea, Nausea, Vomiting Genitourinary: Denies: Dysuria, Hematuria Endocrine: Denies: Heat/ Cold Intolerance, Polydipsia, Polyuria Hematologic/ Lymphatic: Denies: Easy Bruising, Easy Bleeding - Physical Exam Vital Signs Temp Pulse Resp BP 97.6 F L 88 18 148/75 H 10/29/19 08:32 10/29/19 08:32 10/29/19 08:32 10/29/19 08:32 General: Alert, Oriented x3, Cooperative, No apparent distress, Well developed, Well nourished HEENT: Atraumatic, PERRLA, EOMI, Normocephalic Oral: Moist Mucosa Neck: No JVD Lungs: Normal air movement Abdomen: Non-Distended Extremities: No clubbing, No cyanosis, No edema, No Calf Tenderness, - - A well- healed right above-knee amputation stump is noted. The ulceration in the right groin persists. It is generally healthy in appearance. There is no significant redness or erythema. There is no sign of infection or cellulitis. There is a small amount of bioburden. Dimensions are documented elsewhere. However, the size of the ulceration is generally smaller than that which had been previously noted as of several months ago. There has been progress in terms of healing, though healing to completion has not yet occurred. Skin: No rashes Wound Measurements and Assessment WC - Nurse 1 - General Ulcer Measurement Start: 10/29/19 08:31 Freq: Status: Active Protocol: Activity Type Activity Date Activity User E-Sign Co-Sign Detail Recorded Client Recorded Date Recorded By Document 10/29/19 08:32 PL [id number] 10/29/19 08:39 PL 10/29/19 08:32 Wound Center Nurse 1 [Ulcer Assessment] #8 R Groin -Combined with other wound No -Current Size (cm) - Length 1.0 -Current Size (cm) - Width 0.3 -Current Size (cm) - Depth 0.2 -Total Square Cm 0.30 -Photo Taken No -Epithelialization None Present -Tunneling No -Undermining/Tunneling No -Circular Undermining No -Exudate Amt Small -Exudate Type Serosanguineous -Granulation Amt Large (67-100%) -Granulation Quality [place],Red -Necrosis Amt None Present (0 %) -Texture (Blanche-wound Skin Appearance) No Abnormality -Moisture (Blanche-wound Skin Appearance No Abnormality ) -Color (Blanche-wound Skin Appearance) No Abnormality -Temperature (Blanche-wound Skin No Abnormality Appearance) (Pt Warm) -Ulcer Cleansing Rinsed/ Irrigated with Saline -Anesthetic Used 4% Lidocaine Solution - Nurse 2 - General Ulcer CM Notes Start: 10/29/19 08:31 Freq: Status: Active Protocol: Activity Type Activity Date Activity User E-Sign Co-Sign Detail Recorded Client Recorded Date Recorded By Document 10/29/19 08:56 DV [id number] 10/29/19 08:58 DV 10/29/19 08:56 Wound Center Nurse 2 [Procedure/Treatment] -Time 08:56 -Correct Patient Yes -Correct Side, Site, Position Yes -Correct Procedure Yes -Procedure Performed Yes -Type of Procedure Debridement -Clinical Debridement Subcutaneous -Post Debridement Size (cm) - Length 1.0 -Post Debridement Size (cm) - Width 0.3 -Post Debridement Size (cm) - Depth 0.3 -Total Square Cm 0.30 -Wound/Ulcer Outcome Not Healed -Ulcer Cleansing Rinsed/ Irrigated with Saline -Foul Odor after Cleansing No -Bioengineered Tissue No -Bleeding Controlled with Pressure -Offloading No -Treatment Response Procedure Tolerated Well [See Physician Procedure note for Specifics] Pain Scale: 0-10 Numeric [Pain] -Is Patient Pain Free? Yes Musculoskeletal: No Muscle Wasting Neurological: Cranial nerves II-XII grossly intact, Neuro grossly intact Psych/Mental Status: Normal Affect, Appropriate, Alert and oriented to time, place, person, mood and affect Debridement Note Post-Debridement Measurements/Treatment - Nurse 2 - General Ulcer CM Notes Start: 10/29/19 08:31 Freq: Status: Active Protocol: Activity Type Activity Date Activity User E-Sign Co-Sign Detail Recorded Client Recorded Date Recorded By Document 10/29/19 08:56 DV [id number] 10/29/19 08:58 DV 10/29/19 08:56 Wound Center Nurse 2 #8 R Groin -Time 08:56 -Correct Patient Yes -Correct Side, Site, Position Yes -Correct Procedure Yes -Procedure Performed Yes -Type of Procedure Debridement -Clinical Debridement Subcutaneous -Post Debridement Size (cm) - Length 1.0 -Post Debridement Size (cm) - Width 0.3 -Post Debridement Size (cm) - Depth 0.3 -Total Square Cm 0.30 -Wound/Ulcer Outcome Not Healed -Ulcer Cleansing Rinsed/ Irrigated with Saline -Foul Odor after Cleansing No -Bioengineered Tissue No -Bleeding Controlled with Pressure -Offloading No -Treatment Response Procedure Tolerated Well Pain Scale: 0-10 Numeric Is Patient Pain Free? 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 In the 1970's, she was diagnosed with malignant melanoma of the right calf, with metastasis to lymph nodes in the right groin. She underwent excision of the melanoma with right groin lymphadenectomy. She was subsequently treated with a long series of radiation treatments to the right groin. During the days of her radiation treatment, it is suspected that the radiation techniques were somewhat early in their evolution, and quite likely that the patient received massive doses of radiation exposure, exceeding doses which would be considered appropriate today, with techniques which are primitive by today's standards. As a result, the patient has developed soft tissue radiation injury, and has previously been treated at our wound center in the past with a series of approximately 90 hyperbaric oxygen therapy treatments, in 2011. She presented with recurrence of soft tissue radionecrosis in the right groin. Hyperbaric oxygen therapy treatments were initiated, and the patient has undergone a series of 90 additional hyperbaric oxygen treatment sessions. She has shown mild benefit from the hyperbaric oxygen treatments. In review of the patient's past history, each treatment course has been rather protracted in terms of healing. The patient was previously referred for consultation at [facility] (Dr. Harding), which had been arranged by our facility. Medical records related to the patient's visit at [facility] resulted in no significant new recommendations for treatment or management. The patient remains on a well-balanced diet. I have contacted and spoken by phone with the Patient Financial Services Coordinator of the [facility], Dr. Bassam Alas. Dr. Alas has been very helpful. He has conferred with his colleague, Plastic Surgeon Dr. Cassius Whitman. Dr. Whitman has indicated his willingness to evaluate the patient, and the patient has now been evaluated by Dr. Frausto recently. The patient was very impressed with her interaction with the plastic surgeon. A number of options were discussed. Dr. Frausto has proposed a rectus abdominis myocutaneous flap. As a prelude to flap reconstruction, the patient underwent a CT angiogram at [facility] on December 13, 2018. She met with Dr. Frausto later that same day. The patient relates that the nature of the surgical procedure, and the recovery phase, has been described in detail, and it is anticipated to be quite challenging and lengthy. The patient wishes to consider all options prior to making a firm commitment to surgical intervention. She has most recently been evaluated by a construction contractor at [facility], who had further regulations regarding the patient's expectations for recovery from major surgical intervention. The patient is yet to make a commitment to undergoing major surgery and management of her right groin ulceration. The patient has also met with the vascular surgeon at [facility], Dr. Ganga Tong. Once again, the patient has been left with the impression that any surgery to reconstruct the area in the right groin could be fraught with complications and a lengthy recovery. This has given the patient pause and reason for concern, and she is to continue considering all options. At this juncture, however, the patient is doing well. She had recently healed, but returned 3 weeks following discharge with re-ulceration at the former site. Plan: We are to continue with Mary applied topically, with Adaptic, on a daily basis. Her right groin ulceration appears to be improving. Patient will return in 3 weeks for reassessment in our facility. The patient is to continue with a nutritious diet. Prior biopsies of the patient's right groin ulceration were negative for malignancy. The patient has been evaluated by Plastic Surgeon, Dr. Cassius Whitman, at [facility], and a team of other medical providers at [facility]. She has been given understanding that the surgical procedure necessary to result in coverage of her chronic wound is a big ordeal, and a lengthy recovery and rehabilitation will likely follow. She has seen a general surgeon at [facility] (Dr. Nunez), and vascular surgeon Dr. Ganga Tong. This multidisciplinary team of surgeons determined the patient's candidacy for major myocutaneous flap reconstruction, though the patient was reluctant to proceed given the stated possible morbidities associated with the procedure. Rather, she has opted to continue with conservative management of her right groin ulceration. Influenza vaccine w as not administered today. The patient is not a smoker. She stands 5 feet 7 inches tall. She weighs 198 pounds. Her BMI is 31, which places her in a class I weight category. Weight loss has been recommended. She is to collaborate with her primary care physician in this regard.
== END 2019-11-07 23:59 ==
LOC: WC 08:30
PROVIDERS: Family Provider Family Medicine; PCP Family Medicine; Referring Provider Surgery; Visit Provider Surgery
DX: L98.492 Non-pressure chronic ulcer of skin of other sites with fat layer exposed (principal); L59.8 Other specified disorders of the skin and subcutaneous tissue related to radiation; Y84.2 Radiological procedure and radiotherapy as the cause of abnormal reaction of the patient, or of later complication, without mention of misadventure at the time of the procedure; E78.5 Hyperlipidemia, unspecified; K21.9 Gastro-esophageal reflux disease without esophagitis; E66.9 Obesity, unspecified; Z89.619 Acquired absence of unspecified leg above knee; Z87.891 Personal history of nicotine dependence; Z85.42 Personal history of malignant neoplasm of other parts of uterus; Z85.820 Personal history of malignant melanoma of skin
CPT/HCPCS: 11042

== ENCOUNTER 2019-11-19 08:18 | Outpatient (RCR) | payer OTHER, SELFPAY ==
[2019-11-08 00:08] VITALS: BP 148/75; PULSE 88; RESP 18; TEMP 36.4
[2019-11-19 08:50] VITALS: BP 159/76; PULSE 89; RESP 18; TEMP 35.4; BMI 68.3
--- NOTE | 2019-11-19 11:44 | HP.PCM_ITS ---
(1) History of uterine cancer Status: Chronic Current Visit: No Code(s): Z85.42 - Personal history of malignant neoplasm of other parts of uterus (2) History of melanoma Status: Chronic Current Visit: Yes Code(s): Z85.820 - Personal history of malignant melanoma of skin (3) Hyperlipidemia Status: Chronic Current Visit: No Code(s): E78.5 - Hyperlipidemia, unspecified (4) GERD (gastroesophageal reflux disease) Status: Chronic Current Visit: No Code(s): K21.9 - Gastro-esophageal reflux disease without esophagitis (5) Ulcer of right groin Status: Chronic Current Visit: Yes Qualifiers: Non-pressure ulcer stage: with fat layer exposed Code(s): L98.499 - Non-pressure chronic ulcer of skin of other sites with unspecified severity (6) Obesity (BMI 30.0-34.9) Status: Chronic Current Visit: No Code(s): E66.9 - Obesity, unspecified (7) Amputee, above knee Status: Chronic Current Visit: Yes Code(s): Z89.619 - Acquired absence of unspecified leg above knee (8) Soft tissue radionecrosis Status: Chronic Current Visit: Yes Code(s): L59.8 - Other specified disorders of the skin and subcutaneous tissue related to radiation; Y84.2 - Radiological procedure and radiotherapy as the cause of abnormal reaction of the patient, or of later complication, without mention of misadventure at the time of the procedure (9) soft tissue radiation injury Status: Chronic Current Visit: Yes History of Present Illness Date of Service: 11/19/19 Chief Complaint: 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 The patient underwent excision of her melanoma with lymphadenectomy in the right groin. She also underwent lengthy radiation treatments at the [facility] in [place], [place]. Melanoma recurred, and the patient was subsequently treated with monoclonal antibodies in 1984. 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 Treatment included local ulcer care and hyperbaric oxygen therapy. She underwent a total of nearly 90 treatments of hyperbaric oxygen therapy. It is known that she tolerated the therapies well, and derived significant benefit. She relates no history of claustrophobia, or other complications related to the hyperbaric oxygen therapy treatments. She has no history of barotrauma to lungs, ears, etc. Her medical history reveals no evidence of contraindications to hyperbaric oxygen therapy. The patient's current course of management includes a total of 90 sessions of hyperbaric oxygen therapy, which have been completed without total healing of the patient's right groin ulceration. EpiFix allografts have also been used for a series of 10 applications, without total healing. It appears as though the patient's current clinical course is mimicking that of the past, with wound healing which is very recalcitrant to conventional, conservative treatment measures. 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 She has undergone excision of melanoma from the right calf, with lymphadenectomy of the right groin in the 1969's. She subsequently required surgeries of the right thigh related to osteomyelitis, MRSA infection, and radiation injury to the right femoral artery. Ultimately, the patient required right above-knee amputation, performed in 2000. She also has a remote history of open reduction and internal fixation of a right ankle fracture. Allergies/Adverse Reactions: Allergies No Known Allergies Allergy (Verified 06/20/17 09:22) Home Medications: Ambulatory Orders Medication Instructions Recorded Famotidine 20 mg PO 06/20/17 Pravastatin [Pravachol] 20 mg PO DAILY 06/20/17 - Family History Maternal - - The patient's mother is 98 years of age and relatively healthy. The patient's father at age of 79 with a history of cardiomyopathy. Smoking Status: Former smoker Tobacco Use: Non-smoker Review of Systems Constitutional: Denies: Chills, Fever, Weight Change Eyes: Denies: Pain, Vision Change HEENT: Denies: Difficulty Hearing, Difficulty Swallowing, Sinus Congestion Cardiovascular: Denies: Chest Pain, Palpitations Respiratory: Denies: Cough, Shortness of Breath Gastrointestinal: Denies: Diarrhea, Nausea, Vomiting Genitourinary: Denies: Dysuria, Hematuria Endocrine: Denies: Heat/ Cold Intolerance, Polydipsia, Polyuria Hematologic/ Lymphatic: Denies: Easy Bruising, Easy Bleeding - Physical Exam Vital Signs Temp Pulse Resp BP 95.7 F L 89 18 159/76 H 11/19/19 08:50 11/19/19 08:50 11/19/19 08:50 11/19/19 08:50 General: Alert, Oriented x3, Cooperative, No apparent distress, Well developed, Well nourished HEENT: Atraumatic, PERRLA, EOMI, Normocephalic Oral: Moist Mucosa Neck: No JVD Lungs: Normal air movement Abdomen: Non-Distended Extremities: No clubbing, No cyanosis, No edema, No Calf Tenderness, - - A well- healed right above-knee amputation stump is noted. The chronic ulceration in the right groin persists, though appears healthy in appearance. There is no sign of erythema, cellulitis, or infection. The base of the ulceration is generally pink with a small amount of bioburden. Dimensions are documented elsewhere. Skin: No rashes Wound Measurements and Assessment WC - Nurse 1 - General Ulcer Measurement Start: 11/19/19 08:50 Freq: Status: Active Protocol: Activity Type Activity Date Activity User E-Sign Co-Sign Detail Recorded Client Recorded Date Recorded By Document 11/19/19 08:50 DV [id number] 11/19/19 08:57 DV 11/19/19 08:50 Wound Center Nurse 1 [Ulcer Assessment] #8 R Groin -Combined with other wound No -Current Size (cm) - Length 1.0 -Current Size (cm) - Width 0.3 -Current Size (cm) - Depth 0.4 -Total Square Cm 0.30 -Photo Taken No -Epithelialization None Present -Tunneling No -Undermining/Tunneling No -Circular Undermining No -Classification - Thickness Full Thickness without Exposed Support Structure -Exudate Amt Small -Exudate Type Serous -Wound Margin Fibrotic Scar, Thickened Scar -Granulation Amt None Present (0 %) -Granulation Quality N/A -Slough/Fibrin Yes -Necrosis Amt Small (1-33%) -Necrotic Tissue Type Adherent Slough -Structure Exposed None/Limited to Skin Breakdown -Texture (Blanche-wound Skin Appearance) Assessed -Moisture (Blanche-wound Skin Appearance Assessed ) -Color (Blanche-wound Skin Appearance) Assessed -Temperature (Blanche-wound Skin No Abnormality Appearance) (Pt Warm) -Tenderness on Palpation (Blanche-wound No Skin Appearance) -Ulcer Cleansing Rinsed/ Irrigated with Saline -Foul Odor after Cleansing No -Anesthetic Used 5% Lidocaine Gel [Edema Assessment] -Lower Limb Edema Present No WC - Nurse 2 - General Ulcer CM Notes Start: 11/19/19 08:50 Freq: Status: Active Protocol: Activity Type Activity Date Activity User E-Sign Co-Sign Detail Recorded Client Recorded Date Recorded By Document 11/19/19 08:50 DV [id number] 11/19/19 08:57 DV Document 11/19/19 09:04 DV [id number] 11/19/19 09:05 DV 11/19/19 11/19/19 08:50 09:04 Pain Scale: 0-10 Numeric [Pain] -Is Patient Pain Free? Yes Yes [See Physician Procedure note for Specifics] [Procedure/Treatment] #8 R Groin -Time 08:45 -Correct Patient Yes -Correct Side, Site, Position Yes -Correct Procedure Yes -Procedure Performed Yes -Type of Procedure Debridement -Clinical Debridement Subcutaneous -Post Debridement Size (cm) - Length 1.0 -Post Debridement Size (cm) - Width 0.4 -Post Debridement Size (cm) - Depth 0.3 -Total Square Cm 0.40 -Wound/Ulcer Outcome Not Healed -Ulcer Cleansing Rinsed/ Irrigated with Saline -Foul Odor after Cleansing No -Bioengineered Tissue No -Bleeding Controlled with Pressure -Offloading No -Treatment Response Procedure Tolerated Well Wound Center Nurse 2 [See Physician Procedure note for Specifics] Musculoskeletal: No Muscle Wasting Neurological: Cranial nerves II-XII grossly intact, Neuro grossly intact Psych/Mental Status: Normal Affect, Appropriate, Alert and oriented to time, place, person, mood and affect Debridement Note Post-Debridement Measurements/Treatment WC - Nurse 2 - General Ulcer CM Notes Start: 11/19/19 08:50 Freq: Status: Active Protocol: Activity Type Activity Date Activity User E-Sign Co-Sign Detail Recorded Client Recorded Date Recorded By Document 11/19/19 08:50 DV [id number] 11/19/19 08:57 DV Document 11/19/19 09:04 DV [id number] 11/19/19 09:05 DV 11/19/19 11/19/19 08:50 09:04 Pain Scale: 0-10 Numeric Is Patient Pain Free? Yes Yes Wound Center Nurse 2 #8 R Groin -Time 08:45 -Correct Patient Yes -Correct Side, Site, Position Yes -Correct Procedure Yes -Procedure Performed Yes -Type of Procedure Debridement -Clinical Debridement Subcutaneous -Post Debridement Size (cm) - Length 1.0 -Post Debridement Size (cm) - Width 0.4 -Post Debridement Size (cm) - Depth 0.3 -Total Square Cm 0.40 -Wound/Ulcer Outcome Not Healed -Ulcer Cleansing Rinsed/ Irrigated with Saline -Foul Odor after Cleansing No -Bioengineered Tissue No -Bleeding Controlled with Pressure -Offloading No -Treatment Response Procedure Tolerated Well Laterality: Right - Groin Type of Debridement: Excisional debridement Anesthesia Used: 5% Lidocaine Gel Depth: Down to and including healthy tissue, in the subcutaneous layer Percentage of wound debrided: 100 Instrument Used: 3mm curette Tissue Removed: Bioburden Severity: Fat Layer Exposed Amount of bleeding with debridement: Mild Bleeding Controlled with: Compression and gauze Patient tolerated procedure well Assessment/Plan Active Problems History of melanoma (Chronic) Ulcer of right groin (Chronic) Amputee, above knee (Chronic) 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 In the 1969's, she was diagnosed with malignant melanoma of the right calf, with metastasis to lymph nodes in the right groin. She underwent excision of the melanoma with right groin lymphadenectomy. She was subsequently treated with a long series of radiation treatments to the right groin. During the days of her radiation treatment, it is suspected that the radiation techniques were somewhat early in their evolution, and quite likely that the patient received massive doses of radiation exposure, exceeding doses which would be considered appropriate today, with techniques which are primitive by today's standards. As a result, the patient has developed soft tissue radiation injury, and has previously been treated at our wound center in the past with a series of approximately 90 hyperbaric oxygen therapy treatments, in 2011. She presented with recurrence of soft tissue radionecrosis in the right groin. Hyperbaric oxygen therapy treatments were initiated, and the patient has undergone a series of 90 additional hyperbaric oxygen treatment sessions. She has shown mild benefit from the hyperbaric oxygen treatments. In review of the patient's past history, each treatment course has been rather protracted in terms of healing. The patient was previously referred for consultation at [facility] (Dr. Harding), which had been arranged by our facility. Medical records related to the patient's visit at [facility] resulted in no significant new recommendations for treatment or management. The patient remains on a well-balanced diet. I have contacted and spoken by phone with the Marketing Services Coordinator of the [facility], Dr. Bassam Alas. Dr. Alas has been very helpful. He has conferred with his colleague, Plastic Surgeon Dr. Cassius Whitman. Dr. Whitman has indicated his willingness to evaluate the patient, and the patient has now been evaluated by Dr. Frausto recently. The patient was very impressed with her interaction with the plastic surgeon. A number of options were discussed. Dr. Frausto has proposed a rectus abdominis myocutaneous flap. As a prelude to flap reconstruction, the patient underwent a CT angiogram at [facility] on December 13, 2018. She met with Dr. Frausto later that same day. The patient relates that the nature of the surgical procedure, and the recovery phase, has been described in detail, and it is anticipated to be quite challenging and lengthy. The patient wishes to consider all options prior to making a firm commitment to surgical intervention. She has most recently been evaluated by a software developer intern at [facility], who had further regulations regarding the patient's expectations for recovery from major surgical intervention. The patient is yet to make a commitment to undergoing major surgery and management of her right groin ulceration. The patient has also met with the vascular surgeon at [facility], Dr. Ganga Tong. Once again, the patient has been left with the impression that any surgery to reconstruct the area in the right groin could be fraught with complications and a lengthy recovery. This has given the patient pause and reason for concern, and she is to continue considering all options. At this juncture, however, the patient is doing well. She had recently healed, but returned 3 weeks following discharge with re-ulceration at the former site. Plan: We are to continue with Mary applied topically, with Adaptic, on a daily basis. Her right groin ulceration appears to be improving. Patient will return in 3 weeks for reassessment in our facility. The patient is to continue with a nutritious diet. Prior biopsies of the patient's right groin ulceration were negative for malignancy. The patient has been evaluated by Plastic Surgeon, Dr. Cassius Whitman, at [facility], and a team of other medical providers at [facility]. She has been given understanding that the surgical procedure necessary to result in coverage of her chronic wound is a big ordeal, and a lengthy recovery and rehabilitation will likely follow. She has seen a general surgeon at [facility] (Dr. Nunez), and vascular surgeon Dr. Ganga Tong. This multidisciplinary team of surgeons determined the patient's candidacy for major myocutaneous flap reconstruction, though the patient was reluctant to proceed given the stated possible morbidities associated with the procedure. Rather, she has opted to continue with conservative management of her right groin ulceration. Influenza vaccine was not administered today. The patient is not a smoker. She stands 5 feet 7 inches tall. She weighs 198 pounds. Her BMI is 31, which places her in a class I weight category. Weight loss has been recommended. She is to collaborate with her primary care physician in this regard.
== END 2019-12-08 23:59 ==
LOC: WC 08:18
PROVIDERS: Family Provider Family Medicine; PCP Family Medicine; Referring Provider Surgery; Visit Provider Surgery
DX: L98.492 Non-pressure chronic ulcer of skin of other sites with fat layer exposed (principal); L59.8 Other specified disorders of the skin and subcutaneous tissue related to radiation; Y84.2 Radiological procedure and radiotherapy as the cause of abnormal reaction of the patient, or of later complication, without mention of misadventure at the time of the procedure; E66.9 Obesity, unspecified; E78.5 Hyperlipidemia, unspecified; K21.9 Gastro-esophageal reflux disease without esophagitis; Z85.42 Personal history of malignant neoplasm of other parts of uterus; Z87.891 Personal history of nicotine dependence; Z89.611 Acquired absence of right leg above knee
CPT/HCPCS: 11042

== ENCOUNTER 2019-12-31 08:30 | Outpatient (RCR) | payer OTHER, SELFPAY ==
[2019-12-09 00:20] VITALS: BP 159/76; PULSE 89; RESP 18; TEMP 35.4
[2019-12-10 08:36] VITALS: BP 152/85; PULSE 86; RESP 22; TEMP 36.5; BMI 68.3
--- NOTE | 2019-12-10 10:44 | HP.PCM_ITS ---
(1) History of uterine cancer Status: Chronic Current Visit: No Code(s): Z85.42 - Personal history of malignant neoplasm of other parts of uterus (2) History of melanoma Status: Chronic Current Visit: Yes Code(s): Z85.820 - Personal history of malignant melanoma of skin (3) Hyperlipidemia Status: Chronic Current Visit: No Code(s): E78.5 - Hyperlipidemia, unspecified (4) GERD (gastroesophageal reflux disease) Status: Chronic Current Visit: No Code(s): K21.9 - Gastro-esophageal reflux disease without esophagitis (5) Ulcer of right groin Status: Chronic Current Visit: Yes Qualifiers: Non-pressure ulcer stage: with fat layer exposed Code(s): L98.499 - Non-pressure chronic ulcer of skin of other sites with unspecified severity (6) Obesity (BMI 30.0-34.9) Status: Chronic Current Visit: No Code(s): E66.9 - Obesity, unspecified (7) Amputee, above knee Status: Chronic Current Visit: Yes Code(s): Z89.619 - Acquired absence of unspecified leg above knee (8) Soft tissue radionecrosis Status: Chronic Current Visit: Yes Code(s): L59.8 - Other specified disorders of the skin and subcutaneous tissue related to radiation; Y84.2 - Radiological procedure and radiotherapy as the cause of abnormal reaction of the patient, or of later complication, without mention of misadventure at the time of the procedure (9) soft tissue radiation injury Status: Chronic Current Visit: Yes History of Present Illness Date of Service: 12/10/19 Chief Complaint: 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 The patient underwent excision of her melanoma with lymphadenectomy in the right groin. She also underwent lengthy radiation treatments at the [facility] in [place], [place]. Melanoma recurred, and the patient was subsequently treated with monoclonal antibodies in 1984. 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 Treatment included local ulcer care and hyperbaric oxygen therapy. She underwent a total of nearly 90 treatments of hyperbaric oxygen therapy. It is known that she tolerated the therapies well, and derived significant benefit. She relates no history of claustrophobia, or other complications related to the hyperbaric oxygen therapy treatments. She has no history of barotrauma to lungs, ears, etc. Her medical history reveals no evidence of contraindications to hyperbaric oxygen therapy. The patient's current course of management includes a total of 90 sessions of hyperbaric oxygen therapy, which have been completed without total healing of the patient's right groin ulceration. EpiFix allografts have also been used for a series of 10 applications, without total healing. It appears as though the patient's current clinical course is mimicking that of the past, with wound healing which is very recalcitrant to conventional, conservative treatment measures. 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 She has undergone excision of melanoma from the right calf, with lymphadenectomy of the right groin in the 1969's. She subsequently required surgeries of the right thigh related to osteomyelitis, MRSA infection, and radiation injury to the right femoral artery. Ultimately, the patient required right above-knee amputation, performed in 2000. She also has a remote history of open reduction and internal fixation of a right ankle fracture. Allergies/Adverse Reactions: Allergies No Known Allergies Allergy (Verified 06/20/17 09:22) Home Medications: Ambulatory Orders Medication Instructions Recorded Famotidine 20 mg PO 06/20/17 Pravastatin [Pravachol] 20 mg PO DAILY 06/20/17 - Family History Maternal - - The patient's mother is 98 years of age and relatively healthy. The patient's father at age of 79 with a history of cardiomyopathy. Smoking Status: Former smoker Tobacco Use: Non-smoker Review of Systems Constitutional: Denies: Chills, Fever, Weight Change Eyes: Denies: Pain, Vision Change HEENT: Denies: Difficulty Hearing, Difficulty Swallowing, Sinus Congestion Cardiovascular: Denies: Chest Pain, Palpitations Respiratory: Denies: Cough, Shortness of Breath Gastrointestinal: Denies: Diarrhea, Nausea, Vomiting Genitourinary: Denies: Dysuria, Hematuria Endocrine: Denies: Heat/ Cold Intolerance, Polydipsia, Polyuria Hematologic/ Lymphatic: Denies: Easy Bruising, Easy Bleeding - Physical Exam Vital Signs Temp Pulse Resp BP 97.7 F L 86 22 H 152/85 H 12/10/19 08:36 12/10/19 08:36 12/10/19 08:36 12/10/19 08:36 General: Alert, Oriented x3, Cooperative, No apparent distress, Well developed, Well nourished HEENT: Atraumatic, PERRLA, EOMI, Normocephalic Oral: Moist Mucosa Neck: No JVD Lungs: Normal air movement Abdomen: Non-Distended Extremities: No clubbing, No cyanosis, No edema, No Calf Tenderness, - - The ulceration in the right groin persists. It is slightly larger. Centrally, there appears to be evidence of epithelialization. Peripherally, there is evidence of granulation tissue, though the wound is not totally healed. There is no sign of infection or cellulitis. Dimensions are documented elsewhere. There is a small amount of bioburden. A well-healed right above-knee amputation stump is again noted. Skin: No rashes Wound Measurements and Assessment WC - Nurse 1 - General Ulcer Measurement Start: 12/10/19 08:35 Freq: Status: Active Protocol: Activity Type Activity Date Activity User E-Sign Co-Sign Detail Recorded Client Recorded Date Recorded By Document 12/10/19 08:36 DL [id number] 12/10/19 08:41 DL 12/10/19 08:36 Wound Center Nurse 1 [Ulcer Assessment] #8 R Groin -Current Size (cm) - Length 2 -Current Size (cm) - Width 0.3 -Current Size (cm) - Depth 0.3 -Total Square Cm 0.6 -Photo Taken No -Exudate Amt Small -Exudate Type Serosanguineous -Wound Margin Thickened & Rolled Under -Granulation Amt Large (67-100%) -Granulation Quality Red -Necrosis Amt Small (1-33%) -Necrotic Tissue Type Adherent Slough -Structure Exposed N/A -Texture (Blanche-wound Skin Appearance) Scarring -Moisture (Blanche-wound Skin Appearance Dry/Scaly ) -Color (Blanche-wound Skin Appearance) Rubor -Temperature (Blanche-wound Skin No Abnormality Appearance) (Pt Warm) -Tenderness on Palpation (Blanche-wound No Skin Appearance) -Ulcer Cleansing Wound Cleanser -Foul Odor after Cleansing No -Anesthetic Used 4% Lidocaine Solution - Nurse 2 - General Ulcer CM Notes Start: 12/10/19 08:35 Freq: Status: Active Protocol: Activity Type Activity Date Activity User E-Sign Co-Sign Detail Recorded Client Recorded Date Recorded By Document 12/10/19 08:57 DV [id number] 12/10/19 08:59 DV 12/10/19 08:57 Wound Center Nurse 2 [Procedure/Treatment] -Time 08:57 -Correct Patient Yes -Correct Side, Site, Position Yes -Correct Procedure Yes -Procedure Performed Yes -Type of Procedure Debridement -Clinical Debridement Subcutaneous -Post Debridement Size (cm) - Length 0.3 -Post Debridement Size (cm) - Width 0.2 -Post Debridement Size (cm) - Depth 0.1 -Total Square Cm 0.06 -Wound/Ulcer Outcome Not Healed -Ulcer Cleansing Rinsed/ Irrigated with Saline -Foul Odor after Cleansing No -Bioengineered Tissue No -Bleeding Controlled with Pressure -Offloading No -Treatment Response Procedure Tolerated Well [See Physician Procedure note for Specifics] Pain Scale: 0-10 Numeric [Pain] -Is Patient Pain Free? Yes Musculoskeletal: No Muscle Wasting Neurological: Cranial nerves II-XII grossly intact, Neuro grossly intact Psych/Mental Status: Normal Affect, Appropriate, Alert and oriented to time, place, person, mood and affect Debridement Note Post-Debridement Measurements/Treatment - Nurse 2 - General Ulcer CM Notes Start: 12/10/19 08:35 Freq: Status: Active Protocol: Activity Type Activity Date Activity User E-Sign Co-Sign Detail Recorded Client Recorded Date Recorded By Document 12/10/19 08:57 DV [id number] 12/10/19 08:59 DV 12/10/19 08:57 Wound Center Nurse 2 #8 R Groin -Time 08:57 -Correct Patient Yes -Correct Side, Site, Position Yes -Correct Procedure Yes -Procedure Performed Yes -Type of Procedure Debridement -Clinical Debridement Subcutaneous -Post Debridement Size (cm) - Length 0.3 -Post Debridement Size (cm) - Width 0.2 -Post Debridement Size (cm) - Depth 0.1 -Total Square Cm 0.06 -Wound/Ulcer Outcome Not Healed -Ulcer Cleansing Rinsed/ Irrigated with Saline -Foul Odor after Cleansing No -Bioengineered Tissue No -Bleeding Controlled with Pressure -Offloading No -Treatment Response Procedure Tolerated Well Pain Scale: 0-10 Numeric Is Patient Pain Free? 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 In the 1970's, she was diagnosed with malignant melanoma of the right calf, with metastasis to lymph nodes in the right groin. She underwent excision of the melanoma with right groin lymphadenectomy. She was subsequently treated with a long series of radiation treatments to the right groin. During the days of her radiation treatment, it is suspected that the radiation techniques were somewhat early in their evolution, and quite likely that the patient received massive doses of radiation exposure, exceeding doses which would be considered appropriate today, with techniques which are primitive by today's standards. As a result, the patient has developed soft tissue radiation injury, and has previously been treated at our wound center in the past with a series of approximately 90 hyperbaric oxygen therapy treatments, in 2011. She presented with recurrence of soft tissue radionecrosis in the right groin. Hyperbaric oxygen therapy treatments were initiated, and the patient has undergone a series of 90 additional hyperbaric oxygen treatment sessions. She has shown mild benefit from the hyperbaric oxygen treatments. In review of the patient's past history, each treatment course has been rather protracted in terms of healing. The patient was previously referred for consultation at [facility] (Dr. Harding), which had been arranged by our facility. Medical records related to the patient's visit at [facility] resulted in no significant new recommendations for treatment or management. The patient remains on a well-balanced diet. I have contacted and spoken by phone with the Manager Sales Support of the [facility], Dr. Bassam Alas. Dr. Alas has been very helpful. He has conferred with his colleague, Plastic Surgeon Dr. Cassius Whitman. Dr. Whitman has indicated his willingness to evaluate the patient, and the patient has now been evaluated by Dr. Frausto recently. The patient was very impressed with her interaction with the plastic surgeon. A number of options were discussed. Dr. Frausto has proposed a rectus abdominis myocutaneous flap. As a prelude to flap reconstruction, the patient underwent a CT angiogram at [facility] on December 13, 2018. She met with Dr. Frausto later that same day. The patient relates that the nature of the surgical procedure, and the recovery phase, has been described in detail, and it is anticipated to be quite challenging and lengthy. The patient wishes to consider all options prior to making a firm commitment to surgical intervention. She has most recently been evaluated by a filling hand at [facility], who had further regulations regarding the patient's expectations for recovery from major surgical intervention. The patient is yet to make a commitment to undergoing major surgery and management of her right groin ulceration. The patient has also met with the vascular surgeon at [facility], Dr. Ganga Tong. Once again, the patient has been left with the impression that any surgery to reconstruct the area in the right groin could be fraught wi th complications and a lengthy recovery. This has given the patient pause and reason for concern, and she is to continue considering all options. At this juncture, however, the patient is doing well. She had recently healed, but returned 3 weeks following discharge with re-ulceration at the former site. Plan: We are to transition to the use of Fibracol, applied topically, with Adaptic, on a daily basis. Patient will return in 3 weeks for reassessment in our facility. The patient is to continue with a nutritious diet. Prior biopsies of the patient's right groin ulceration were negative for malignancy. The patient has been evaluated by Plastic Surgeon, Dr. Cassius Whitman, at [facility], and a team of other medical providers at [facility]. She has been given understanding that the surgical procedure necessary to result in coverage of her chronic wound is a big ordeal, and a lengthy recovery and rehabilitation will likely follow. She has seen a general surgeon at [facility] (Dr. Nunez), and vascular surgeon Dr. Ganga Tong. This multidisciplinary team of surgeons determined the patient's candidacy for major myocutaneous flap reconstruction, though the patient was reluctant to proceed given the stated possible morbidities associated with the procedure. Rather, she has opted to continue with conservative management of her right groin ulceration. With the arrival of spring, subsequently summer, and warmer weather, we have cautioned the patient against allowing the heat and perspiration to accumulate in the right groin area, which could be a deterrent to the ongoing healing process. Influenza vaccine was not administered today. The patient is not a smoker. She stands 5 feet 7 inches tall. She weighs 198 pounds. Her BMI is 31, which places her in a class I weight category. Weight loss has been recommended. She is to collaborate with her primary care physician in this regard.
[2019-12-31 08:32] VITALS: BP 165/81; PULSE 88; RESP 20; TEMP 36.4; BMI 68.3
--- NOTE | 2019-12-31 09:02 | HP.PCM_ITS ---
(1) History of uterine cancer Status: Chronic Current Visit: No Code(s): Z85.42 - Personal history of malignant neoplasm of other parts of uterus (2) History of melanoma Status: Chronic Current Visit: Yes Code(s): Z85.820 - Personal history of malignant melanoma of skin (3) Hyperlipidemia Status: Chronic Current Visit: No Code(s): E78.5 - Hyperlipidemia, unspecified (4) GERD (gastroesophageal reflux disease) Status: Chronic Current Visit: No Code(s): K21.9 - Gastro-esophageal reflux disease without esophagitis (5) Ulcer of right groin Status: Chronic Current Visit: Yes Qualifiers: Non-pressure ulcer stage: with fat layer exposed Code(s): L98.499 - Non-pressure chronic ulcer of skin of other sites with unspecified severity (6) Obesity (BMI 30.0-34.9) Status: Chronic Current Visit: No Code(s): E66.9 - Obesity, unspecified (7) Amputee, above knee Status: Chronic Current Visit: Yes Code(s): Z89.619 - Acquired absence of unspecified leg above knee (8) Soft tissue radionecrosis Status: Chronic Current Visit: Yes Code(s): L59.8 - Other specified disorders of the skin and subcutaneous tissue related to radiation; Y84.2 - Radiological procedure and radiotherapy as the cause of abnormal reaction of the patient, or of later complication, without mention of misadventure at the time of the procedure (9) soft tissue radiation injury Status: Chronic Current Visit: Yes History of Present Illness Date of Service: 12/31/19 Chief Complaint: 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 The patient underwent excision of her melanoma with lymphadenectomy in the right groin. She also underwent lengthy radiation treatments at the [facility] in [place], [place]. Melanoma recurred, and the patient was subsequently treated with monoclonal antibodies in 1984. 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 Treatment included local ulcer care and hyperbaric oxygen therapy. She underwent a total of nearly 90 treatments of hyperbaric oxygen therapy. It is known that she tolerated the therapies well, and derived significant benefit. She relates no history of claustrophobia, or other complications related to the hyperbaric oxygen therapy treatments. She has no history of barotrauma to lungs, ears, etc. Her medical history reveals no evidence of contraindications to hyperbaric oxygen therapy. The patient's current course of management includes a total of 90 sessions of hyperbaric oxygen therapy, which have been completed without total healing of the patient's right groin ulceration. EpiFix allografts have also been used for a series of 10 applications, without total healing. It appears as though the patient's current clinical course is mimicking that of the past, with wound healing which is very recalcitrant to conventional, conservative treatment measures. 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 She has undergone excision of melanoma from the right calf, with lymphadenectomy of the right groin in the 1969's. She subsequently required surgeries of the right thigh related to osteomyelitis, MRSA infection, and radiation injury to the right femoral artery. Ultimately, the patient required right above-knee amputation, performed in 2000. She also has a remote history of open reduction and internal fixation of a right ankle fracture. Allergies/Adverse Reactions: Allergies No Known Allergies Allergy (Verified 06/20/17 09:22) Home Medications: Ambulatory Orders Medication Instructions Recorded Famotidine 20 mg PO 06/20/17 Pravastatin [Pravachol] 20 mg PO DAILY 06/20/17 - Family History Maternal - - The patient's mother is 98 years of age and relatively healthy. The patient's father at age of 79 with a history of cardiomyopathy. Smoking Status: Former smoker Tobacco Use: Non-smoker Review of Systems Constitutional: Denies: Chills, Fever, Weight Change Eyes: Denies: Pain, Vision Change HEENT: Denies: Difficulty Hearing, Difficulty Swallowing, Sinus Congestion Cardiovascular: Denies: Chest Pain, Palpitations Respiratory: Denies: Cough, Shortness of Breath Gastrointestinal: Denies: Diarrhea, Nausea, Vomiting Genitourinary: Denies: Dysuria, Hematuria Endocrine: Denies: Heat/ Cold Intolerance, Polydipsia, Polyuria Hematologic/ Lymphatic: Denies: Easy Bruising, Easy Bleeding - Physical Exam Vital Signs Temp Pulse Resp BP 97.6 F L 88 20 H 165/81 H 12/31/19 08:32 12/31/19 08:32 12/31/19 08:32 12/31/19 08:32 General: Alert, Oriented x3, Cooperative, No apparent distress, Well developed, Well nourished HEENT: Atraumatic, PERRLA, EOMI, Normocephalic Oral: Moist Mucosa Neck: No JVD Lungs: Normal air movement Abdomen: Non-Distended Extremities: No clubbing, No cyanosis, No edema, No Calf Tenderness, - - A well- healed right above-knee amputation stump is noted. The ulceration in the right groin persists. Dimensions are documented elsewhere. There is no sign of infection or cellulitis. There is a small amount of bioburden. In general, there has been no significant change since the patient's prior visit. Skin: No rashes Wound Measurements and Assessment WC - Nurse 1 - General Ulcer Measurement Start: 12/10/19 08:35 Freq: Status: Active Protocol: Activity Type Activity Date Activity User E-Sign Co-Sign Detail Recorded Client Recorded Date Recorded By Document 12/31/19 08:32 DL [id number] 12/31/19 08:38 DL 12/31/19 08:32 Wound Center Nurse 1 [Ulcer Assessment] #8 R Groin -Current Size (cm) - Length 1 -Current Size (cm) - Width 0.2 -Current Size (cm) - Depth 0.2 -Total Square Cm 0.2 -Photo Taken No -Exudate Amt Small -Exudate Type Serosanguineous -Wound Margin Thickened & Rolled Under -Granulation Amt Large (67-100%) -Granulation Quality [place] -Necrosis Amt None Present (0 %) -Structure Exposed N/A -Texture (Blanche-wound Skin Appearance) Scarring -Moisture (Blanche-wound Skin Appearance Dry/Scaly ) -Color (Blanche-wound Skin Appearance) Rubor -Temperature (Blanche-wound Skin No Abnormality Appearance) (Pt Warm) -Tenderness on Palpation (Blanche-wound No Skin Appearance) -Ulcer Cleansing Wound Cleanser -Foul Odor after Cleansing No -Anesthetic Used 4% Lidocaine Solution Musculoskeletal: No Muscle Wasting Neurological: Cranial nerves II-XII grossly intact, Neuro grossly intact Psych/Mental Status: Normal Affect, Appropriate, Alert and oriented to time, place, person, mood and affect Debridement Note Post-Debridement Measurements/Treatment WC - Nurse 2 - General Ulcer CM Notes Start: 12/10/19 08:35 Freq: Status: Active Protocol: Activity Type Activity Date Activity User E-Sign Co-Sign Detail Recorded Client Recorded Date Recorded By Document 12/10/19 08:57 DV [id number] 12/10/19 08:59 DV 12/10/19 08:57 Wound Center Nurse 2 #8 R Groin -Time 08:57 -Correct Patient Yes -Correct Side, Site, Position Yes -Correct Procedure Yes -Procedure Performed Yes -Type of Procedure Debridement -Clinical Debridement Subcutaneous -Post Debridement Size (cm) - Length 0.3 -Post Debridement Size (cm) - Width 0.2 -Post Debridement Size (cm) - Depth 0.1 -Total Square Cm 0.06 -Wound/Ulcer Outcome Not Healed -Ulcer Cleansing Rinsed/ Irrigated with Saline -Foul Odor after Cleansing No -Bioengineered Tissue No -Bleeding Controlled with Pressure -Offloading No -Treatment Response Procedure Tolerated Well Pain Scale: 0-10 Numeric Is Patient Pain Free? 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 In the 1970's, she was diagnosed with malignant melanoma of the right calf, with metastasis to lymph nodes in the right groin. She underwent excision of the melanoma with right groin lymphadenectomy. She was subsequently treated with a long series of radiation treatments to the right groin. During the days of her radiation treatment, it is suspected that the radiation techniques were somewhat early in their evolution, and quite likely that the patient received massive doses of radiation exposure, exceeding doses which would be considered appropriate today, with techniques which are primitive by today's standards. As a result, the patient has developed soft tissue radiation injury, and has previously been treated at our wound center in the past with a series of approximately 90 hyperbaric oxygen therapy treatments, in 2011. She presented with recurrence of soft tissue radionecrosis in the right groin. Hyperbaric oxygen therapy treatments were initiated, and the patient has undergone a series of 90 additional hyperbaric oxygen treatment sessions. She has shown mild benefit from the hyperbaric oxygen treatments. In review of the patient's past history, each treatment course has been rather protracted in terms of healing. The patient was previously referred for consultation at [facility] (Dr. Harding), which had been arranged by our facility. Medical records related to the patient's visit at [facility] resulted in no significant new recommendations for treatment or management. The patient remains on a well-balanced diet. I have contacted and spoken by phone with the Security Systems Specialist of the [facility], Dr. Bassam Alas. Dr. Alas has been very helpful. He has conferred with his colleague, Plastic Surgeon Dr. Cassius Whitman. Dr. Whitman has indicated his willingness to evaluate the patient, and the patient has now been evaluated by Dr. Frausto recently. The patient was very impressed with her interaction with the plastic surgeon. A number of options were discussed. Dr. Frausto has proposed a rectus abdominis myocutaneous flap. As a prelude to flap reconstruction, the patient underwent a CT angiogram at [facility] on December 13, 2018. She met with Dr. Frausto later that same day. The patient relates that the nature of the surgical procedure, and the recovery phase, has been described in detail, and it is anticipated to be quite challenging and lengthy. The patient wishes to consider all options prior to ma lynnette a firm commitment to surgical intervention. She has most recently been evaluated by a animal rehabilitator at [facility], who had further regulations regarding the patient's expectations for recovery from major surgical intervention. The patient is yet to make a commitment to undergoing major surgery and management of her right groin ulceration. The patient has also met with the vascular surgeon at [facility], Dr. Ganga Tong. Once again, the patient has been left with the impression that any surgery to reconstruct the area in the right groin could be fraught with complications and a lengthy recovery. This has given the patient pause and reason for concern, and she is to continue considering all options. At this juncture, however, the patient is doing well. She had recently healed, but returned 3 weeks following discharge with re-ulceration at the former site. Plan: We are to continue the use of Fibracol, changed on a daily basis. Because of the heat, and the patient's perspiration, we are to consider adding Sorbsan in an effort to absorb perspiration and avoid maceration or adverse wound c onsequences. Patient will return in 3 weeks for reassessment in our facility. The patient is to continue with a nutritious diet. Prior biopsies of the patient's right groin ulceration were negative for malignancy. The patient has been evaluated by Plastic Surgeon, Dr. Cassius Whitman, at [facility], and a team of other medical providers at [facility]. She has been given understanding that the surgical procedure necessary to result in coverage of her chronic wound is a big ordeal, and a lengthy recovery and rehabilitation will likely follow. She has seen a general surgeon at [facility] (Dr. Nunez), and vascular surgeon Dr. Ganga Tong. This multidisciplinary team of surgeons determined the patient's candidacy for major myocutaneous flap reconstruction, though the patient was reluctant to proceed given the stated possible morbidities associated with the procedure. Rather, she has opted to continue with conservative management of her right groin ulceration. With the arrival of spring, subsequently summer, and warmer weather, we have cautioned the patient against allowing the heat and perspiration to accumulate in the right groin area, which could be a deterrent to the ongoing healing process. Influenza vaccine was not administered today. The patient is not a smoker. She stands 5 feet 7 inches tall. She weighs 198 pounds. Her BMI is 31, which places her in a class I weight category. Weight loss has been recommended. She is to collaborate with her primary care physician in this regard.
== END 2020-01-07 23:59 ==
LOC: WC 08:30
PROVIDERS: Family Provider Family Medicine; PCP Family Medicine; Referring Provider Surgery; Visit Provider Surgery
DX: L98.492 Non-pressure chronic ulcer of skin of other sites with fat layer exposed (principal); L59.8 Other specified disorders of the skin and subcutaneous tissue related to radiation; Y84.2 Radiological procedure and radiotherapy as the cause of abnormal reaction of the patient, or of later complication, without mention of misadventure at the time of the procedure; Y92.9 Unspecified place or not applicable; E78.5 Hyperlipidemia, unspecified; K21.9 Gastro-esophageal reflux disease without esophagitis; E66.9 Obesity, unspecified; Z85.42 Personal history of malignant neoplasm of other parts of uterus; Z85.820 Personal history of malignant melanoma of skin; Z87.891 Personal history of nicotine dependence; Z89.611 Acquired absence of right leg above knee
CPT/HCPCS: 11042

== ENCOUNTER 2020-01-21 09:08 | Outpatient (RCR) | payer OTHER, SELFPAY ==
[2020-01-08 00:20] VITALS: BP 165/81; PULSE 88; RESP 20; TEMP 36.4
[2020-01-21 08:36] VITALS: BP 151/70; PULSE 88; RESP 18; TEMP 36.6; BMI 68.3
--- NOTE | 2020-01-21 09:17 | HP.PCM_ITS ---
(1) History of uterine cancer Status: Chronic Current Visit: No Code(s): Z85.42 - Personal history of malignant neoplasm of other parts of uterus (2) History of melanoma Status: Chronic Current Visit: Yes Code(s): Z85.820 - Personal history of malignant melanoma of skin (3) Hyperlipidemia Status: Chronic Current Visit: No Code(s): E78.5 - Hyperlipidemia, unspecified (4) GERD (gastroesophageal reflux disease) Status: Chronic Current Visit: No Code(s): K21.9 - Gastro-esophageal reflux disease without esophagitis (5) Ulcer of right groin Status: Chronic Current Visit: Yes Qualifiers: Non-pressure ulcer stage: with fat layer exposed Code(s): L98.499 - Non-pressure chronic ulcer of skin of other sites with unspecified severity (6) Obesity (BMI 30.0-34.9) Status: Chronic Current Visit: No Code(s): E66.9 - Obesity, unspecified (7) Amputee, above knee Status: Chronic Current Visit: Yes Code(s): Z89.619 - Acquired absence of unspecified leg above knee (8) Soft tissue radionecrosis Status: Chronic Current Visit: Yes Code(s): L59.8 - Other specified disorders of the skin and subcutaneous tissue related to radiation; Y84.2 - Radiological procedure and radiotherapy as the cause of abnormal reaction of the patient, or of later complication, without mention of misadventure at the time of the procedure (9) soft tissue radiation injury Status: Chronic Current Visit: Yes History of Present Illness Date of Service: 01/21/20 Chief Complaint: 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 The patient underwent excision of her melanoma with lymphadenectomy in the right groin. She also underwent lengthy radiation treatments at the [facility] in [place], [place]. Melanoma recurred, and the patient was subsequently treated with monoclonal antibodies in 1984. 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 Treatment included local ulcer care and hyperbaric oxygen therapy. She underwent a total of nearly 90 treatments of hyperbaric oxygen therapy. It is known that she tolerated the therapies well, and derived significant benefit. She relates no history of claustrophobia, or other complications related to the hyperbaric oxygen therapy treatments. She has no history of barotrauma to lungs, ears, etc. Her medical history reveals no evidence of contraindications to hyperbaric oxygen therapy. The patient's current course of management includes a total of 90 sessions of hyperbaric oxygen therapy, which have been completed without total healing of the patient's right groin ulceration. EpiFix allografts have also been used for a series of 10 applications, without total healing. It appears as though the patient's current clinical course is mimicking that of the past, with wound healing which is very recalcitrant to conventional, conservative treatment measures. 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 She has undergone excision of melanoma from the right calf, with lymphadenectomy of the right groin in the 1969's. She subsequently required surgeries of the right thigh related to osteomyelitis, MRSA infection, and radiation injury to the right femoral artery. Ultimately, the patient required right above-knee amputation, performed in 2000. She also has a remote history of open reduction and internal fixation of a right ankle fracture. Allergies/Adverse Reactions: Allergies No Known Allergies Allergy (Verified 06/20/17 09:22) Home Medications: Ambulatory Orders Medication Instructions Recorded Famotidine 20 mg PO 06/20/17 Pravastatin [Pravachol] 20 mg PO DAILY 06/20/17 - Family History Maternal - - The patient's mother is 98 years of age and relatively healthy. The patient's father at age of 79 with a history of cardiomyopathy. Smoking Status: Former smoker Tobacco Use: Non-smoker Review of Systems Constitutional: Denies: Chills, Fever, Weight Change Eyes: Denies: Pain, Vision Change HEENT: Denies: Difficulty Hearing, Difficulty Swallowing, Sinus Congestion Cardiovascular: Denies: Chest Pain, Palpitations Respiratory: Denies: Cough, Shortness of Breath Gastrointestinal: Denies: Diarrhea, Nausea, Vomiting Genitourinary: Denies: Dysuria, Hematuria Endocrine: Denies: Heat/ Cold Intolerance, Polydipsia, Polyuria Hematologic/ Lymphatic: Denies: Easy Bruising, Easy Bleeding - Physical Exam Vital Signs Temp Pulse Resp BP 97.8 F 88 18 151/70 H 01/21/20 08:36 01/21/20 08:36 01/21/20 08:36 01/21/20 08:36 General: Alert, Oriented x3, Cooperative, No apparent distress, Well developed, Well nourished HEENT: Atraumatic, PERRLA, EOMI, Normocephalic Oral: Moist Mucosa Neck: No JVD Lungs: Normal air movement Abdomen: Non-Distended Extremities: No clubbing, No cyanosis, No edema, No Calf Tenderness, - - Well- healed right above-knee amputation stump is noted. The ulceration in the right groin appears to be completely healed and epithelialized. There is a slight depression, but the ulceration itself appears to be healed. There is no sign of infection or cellulitis. Skin: No rashes Wound Measurements and Assessment WC - Nurse 1 - General Ulcer Measurement Start: 01/21/20 08:36 Freq: Status: Active Protocol: Activity Type Activity Date Activity User E-Sign Co-Sign Detail Recorded Client Recorded Date Recorded By Document 01/21/20 08:36 [id number] 01/21/20 08:42 DL 01/21/20 08:36 Wound Center Nurse 1 [Ulcer Assessment] #8 R Groin -Current Size (cm) - Length 0.9 -Current Size (cm) - Width 0.1 -Current Size (cm) - Depth 0.1 -Total Square Cm 0.09 -Photo Taken No -Exudate Amt None Present -Wound Margin Fibrotic Scar, Thickened Scar -Granulation Amt Large (67-100%) -Granulation Quality [place] -Necrosis Amt None Present (0 %) -Texture (Blanche-wound Skin Appearance) Scarring -Moisture (Blanche-wound Skin Appearance Dry/Scaly ) -Color (Blanche-wound Skin Appearance) Rubor -Temperature (Blanche-wound Skin No Abnormality Appearance) (Pt Warm) -Tenderness on Palpation (Blanche-wound No Skin Appearance) -Ulcer Cleansing Rinsed/ Irrigated with Saline -Foul Odor after Cleansing No -Anesthetic Used 4% Lidocaine Solution WC - Nurse 2 - General Ulcer CM Notes Start: 01/21/20 08:36 Freq: Status: Active Protocol: Activity Type Activity Date Activity User E-Sign Co-Sign Detail Recorded Client Recorded Date Recorded By Document 01/21/20 09:13 DV [id number] 01/21/20 09:15 DV 01/21/20 09:13 Wound Center Nurse 2 [Procedure/Treatment] -Time 09:14 -Correct Patient Yes -Correct Side, Site, Position Yes -Correct Procedure No -Procedure Performed No -Post Debridement Size (cm) - Length 0 -Post Debridement Size (cm) - Width 0 -Post Debridement Size (cm) - Depth 0 -Total Square Cm 0 -Wound/Ulcer Outcome Healed- Epithelialized [See Physician Procedure note for Specifics] Musculoskeletal: No Muscle Wasting Neurological: Cranial nerves II-XII grossly intact, Neuro grossly intact Psych/Mental Status: Normal Affect, Appropriate, Alert and oriented to time, place, person, mood and affect Debridement Note Post-Debridement Measurements/Treatment - Nurse 2 - General Ulcer CM Notes Start: 01/21/20 08:36 Freq: Status: Active Protocol: Activity Type Activity Date Activity User E-Sign Co-Sign Detail Recorded Client Recorded Date Recorded By Document 01/21/20 09:13 DV [id number] 01/21/20 09:15 DV 01/21/20 09:13 Wound Center Nurse 2 #8 R Groin -Time 09:14 -Correct Patient Yes -Correct Side, Site, Position Yes -Correct Procedure No -Procedure Performed No -Post Debridement Size (cm) - Length 0 -Post Debridement Size (cm) - Width 0 -Post Debridement Size (cm) - Depth 0 -Total Square Cm 0 -Wound/Ulcer Outcome Healed- Epithelialized No debridement was completed today - The right groin ulceration appears to be completely healed and epithelialized. Assessment/Plan Active Problems History of melanoma (Chronic) Ulcer of right groin (Chronic) Amputee, above knee (Chronic) 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 In the 1970's, she was diagnosed with malignant melanoma of the right calf, with metastasis to lymph nodes in the right groin. She underwent excision of the melanoma with right groin lymphadenectomy. She was subsequently treated with a long series of radiation treatments to the right groin. During the days of her radiation treatment, it is suspected that the radiation techniques were somewhat early in their evolution, and quite likely that the patient received massive doses of radiation exposure, exceeding doses which would be considered appropriate today, with techniques which are primitive by today's standards. As a result, the patient has developed soft tissue radiation injury, and has previously been treated at our wound center in the past with a series of approximately 90 hyperbaric oxygen therapy treatments, in 2011. She presented with recurrence of soft tissue radionecrosis in the right groin. Hyperbaric oxygen therapy treatments were initiated, and the patient has undergone a series of 90 additional hyperbaric oxygen treatment sessions. She has shown mild benefit from the hyperbaric oxygen treatments. In review of the patient's past history, each treatment course has been rather protracted in terms of healing. The patient was previ ously referred for consultation at [facility] (Dr. Harding), which had been arranged by our facility. Medical records related to the patient's visit at [facility] resulted in no significant new recommendations for treatment or management. The patient remains on a well-balanced diet. I have contacted and spoken by phone with the Leather Finisher of the [facility], Dr. Bassam Alas. Dr. Alas has been very helpful. He has conferred with his colleague, Plastic Surgeon Dr. Cassius Whitman. Dr. Whitman has indicated his willingness to evaluate the patient, and the patient has now been evaluated by Dr. Frausto recently. The patient was very impressed with her interaction with the plastic surgeon. A number of options were discussed. Dr. Frausto has proposed a rectus abdominis myocutaneous flap. As a prelude to flap reconstruction, the patient underwent a CT angiogram at [facility] on December 13, 2018. She met with Dr. Frausto later that same day. The patient relates that the nature of the surgical procedure, and the recovery phase, has been described in detail, and it is anticipated to be quite challenging and lengthy. The patient wishes to consider all options prior to making a firm commitment to surgical intervention. She has most recently been evaluated by a director of market research at [facility], who had further regulations regarding the patient's expectations for recovery from major surgical intervention. The patient is yet to make a commitment to undergoing major surgery and management of her right groin ulceration. The patient has also met with the vascular surgeon at [facility], Dr. Ganga Tong. Once again, the patient has been left with the impression that any surgery to reconstruct the area in the right groin could be fraught with complications and a lengthy recovery. This has given the patient pause and reason for concern, and she is to continue considering all options. At this juncture, however, the patient is doing well. She had recently healed, but returned 3 weeks following discharge with re-ulceration at the former site. Plan: The patient now appears to be completely healed and epithelialized. She is to be discharged. She will follow-up henceforth on an as-needed basis. She is fully aware to contact the wound center for reassessment should there be any signs of ulcer recurrence in the right groin. She is to keep the area clean and dry. The patient has been evaluated by Plastic Surgeon, Dr. Cassius Whitman, at [facility], and a team of other medical providers at [facility]. She has been given understanding that the surgical procedure necessary to result in coverage of her chronic wound is a big ordeal, and a lengthy recovery and rehabilitation will likely follow. She has seen a general surgeon at [facility] (Dr. Nunez), and vascular surgeon Dr. Ganga Tong. This multidisciplinary team of surgeons determined the patient's candidacy for major myocutaneous flap reconstruction, though the patient was reluctant to proceed given the stated possible morbidities associated with the procedure. Rather, she opted to continue with conservative management of her right groin ulceration. With the arrival of spring, subsequently summer, and warmer weather, we have cautioned the patient against allowing the heat and perspiration to accumulate in the right groin area, which could be a deterrent to the ongoing healing process. Ever, at this point in time, she appears to be healed, and is to be discharged. Influenza vaccine was not administered today. The patient is not a smoker. She stands 5 feet 7 inches tall. She weighs 198 pounds. Her BMI is 31, which places her in a class I weight category. Weight loss has been recommended. She is to collaborate with her primary care phys tl in this regard.
== END 2020-02-07 23:59 ==
LOC: WC 09:08
PROVIDERS: Family Provider Family Medicine; PCP Family Medicine; Referring Provider Surgery; Visit Provider Surgery
DX: Z09 Encounter for follow-up examination after completed treatment for conditions other than malignant neoplasm (principal); Z85.820 Personal history of malignant melanoma of skin; E78.5 Hyperlipidemia, unspecified; K21.9 Gastro-esophageal reflux disease without esophagitis; E66.9 Obesity, unspecified; Z85.42 Personal history of malignant neoplasm of other parts of uterus; Z89.619 Acquired absence of unspecified leg above knee; Z86.14 Personal history of Methicillin resistant Staphylococcus aureus infection; Z92.3 Personal history of irradiation; Z87.891 Personal history of nicotine dependence
CPT/HCPCS: 99212; G0463

== ENCOUNTER 2020-06-02 10:00 | Outpatient (RCR) | payer MEDICARE, OTHER, SELFPAY ==
[2020-02-08 00:21] VITALS: BP 151/70; PULSE 88; RESP 18; TEMP 36.6
[2020-05-26 09:04] VITALS: BP 168/88; PULSE 93; RESP 18; TEMP 36.6; BMI 29.7
--- NOTE | 2020-05-26 12:15 | HP.PCM_ITS ---
(1) Overweight (BMI 25.0-29.9) Status: Chronic Code(s): E66.3 - Overweight (2) History of uterine cancer Status: Chronic Code(s): Z85.42 - Personal history of malignant neoplasm of other parts of uterus (3) History of melanoma Status: Chronic Code(s): Z85.820 - Personal history of malignant melanoma of skin (4) Hyperlipidemia Status: Chronic Code(s): E78.5 - Hyperlipidemia, unspecified (5) GERD (gastroesophageal reflux disease) Status: Chronic Code(s): K21.9 - Gastro-esophageal reflux disease without esophagitis (6) Ulcer of right groin Status: Chronic Qualifiers: Non-pressure ulcer stage: with fat layer exposed Code(s): L98.499 - Non-pressure chronic ulcer of skin of other sites with unspecified severity (7) Amputee, above knee Status: Chronic Code(s): Z89.619 - Acquired absence of unspecified leg above knee (8) Soft tissue radionecrosis Status: Chronic Code(s): L59.8 - Other specified disorders of the skin and subcutaneous tissue related to radiation; Y84.2 - Radiological procedure and radiotherapy as the cause of abnormal reaction of the patient, or of later complication, without mention of misadventure at the time of the procedure (9) soft tissue radiation injury Status: Chronic History of Present Illness Date of Service: 05/26/20 Chief Complaint: 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 The patient underwent excision of her melanoma with lymphadenectomy in the right groin. She also underwent lengthy radiation treatments at the [facility] in [place], [place]. Melanoma recurred, and the patient was subsequently treated with monoclonal antibodies in 1984. 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 Treatment included local ulcer care and hyperbaric oxygen therapy. She underwent a total of nearly 90 treatments of hyperbaric oxygen therapy. It is known that she tolerated the therapies well, and derived significant benefit. She has no history of barotrauma to lungs, ears, etc. Her medical history reveals no evidence of contraindications to hyperbaric oxygen therapy. The patient was again treated for an ulceration in the right groin last year and earlier this year, related to soft tissue radiation injury. She subsequently healed in January 2020, and was discharged. Her treatment at that time included local wound care and a total of 90 sessions of hyperbaric oxygen therapy. A series of 10 EpiFix allografts were also used during her course of treatment. Each of the patient's prior courses of treatment in our facility have been protracted, with difficulties encountered in achieving complete healing. Patient presents at this time with a recurrence of her right groin ulceration, again thought to be secondary to soft tissue radiation injury. The ulceration recurred spontaneously on May 16, approximately 10 days ago, prompting the patient to seek treatment at our wound care facility. Since the recurrence of the ulceration, the patient has been using Mary topically. The patient indicates that her health history has not changed since she was last treated in our facility. She has had no recent fevers, sweats, or chills. Past Medical History Past Medical History: Chronic Problems Overweight (BMI 25.0-29.9) (Chronic) History of uterine cancer (Chronic) History of melanoma (Chronic) Hyperlipidemia (Chronic) GERD (gastroesophageal reflux disease) (Chronic) Ulcer of right groin (Chronic) Obesity (BMI 30.0-34.9) (Chronic) Amputee, above knee (Chronic) Soft tissue radionecrosis (Chronic) soft tissue radiation injury (Chronic) Surgical History: - - Patient has previously undergone total hysterectomy. She has undergone excision of melanoma from the right calf, with lymphadenectomy of the right groin in the 1969's. She subsequently required surgeries of the right thigh related to osteomyelitis, MRSA infection, and radiation injury to the right femoral artery. Ultimately, the patient required right above-knee amputation, performed in 2000. She also has a remote history of open reduction and internal fixation of a right ankle fracture. Allergies/Adverse Reactions: Allergies No Known Allergies Allergy (Verified 05/26/20 09:19) Home Medications: Ambulatory Orders Medication Instructions Recorded Famotidine 20 mg PO 06/20/17 Pravastatin [Pravachol] 20 mg PO DAILY 06/20/17 - Family History Maternal - - The patient's mother is 98 years of age and relatively healthy. The patient's father at age of 79 with a history of cardiomyopathy. Lives: Alone Smoking Status: Former smoker Tobacco Use: Non-smoker Alcohol: Rare Drugs: None Review of Systems Constitutional: Denies: Chills, Fever, Weight Change Eyes: Denies: Pain, Vision Change HEENT: Denies: Difficulty Hearing, Difficulty Swallowing, Sinus Congestion Cardiovascular: Denies: Chest Pain, Palpitations Respiratory: Denies: Cough, Shortness of Breath Gastrointestinal: Denies: Diarrhea, Nausea, Vomiting Genitourinary: Denies: Dysuria, Hematuria Endocrine: Denies: Heat/ Cold Intolerance, Polydipsia, Polyuria Hematologic/ Lymphatic: Denies: Easy Bruising, Easy Bleeding - Physical Exam Vital Signs Temp Pulse Resp BP 97.9 F 93 18 168/88 H 05/26/20 09:04 05/26/20 09:04 05/26/20 09:04 05/26/20 09:04 General: Alert, Oriented x3, Cooperative, No apparent distress, Well developed, Well nourished HEENT: Atraumatic, PERRLA, EOMI, Normocephalic Oral: Moist Mucosa, No Gingival or Mucosal Lesions/ Ulcerations Neck: Supple, No JVD, Negative Carotid Bruits, Negative Hepatojugular Reflux, No Nuchal Rigidity, Trachea Midline Lungs: Clear to auscultation, Normal air movement, No rhonchi, No wheeze Cardiovascular: Regular rate, Regular Rhythm, Normal S1, Normal S2, No murmurs Abdomen: Soft, Non Tender, Non-Distended Extremities: No clubbing, No cyanosis, No edema, No Calf Tenderness, - - A well- healed right above-knee amputation stump is noted. A small ulceration is noted in the right groin. There is no sign of infection or cellulitis. There is a moderate amount of bioburden. Dimensions are documented elsewhere. Skin: No rashes Wound Measurements and Assessment WC - Nurse 1 - General Ulcer Measurement Start: 05/26/20 09:04 Freq: Status: Active Protocol: Activity Type Activity Date Activity User E-Sign Co-Sign Detail Recorded Client Recorded Date Recorded By Document 05/26/20 09:04 [id number] 05/26/20 09:17 DL 05/26/20 09:04 Wound Center Nurse 1 [Ulcer Assessment] #9 R Groin -Current Size (cm) - Length 1 -Current Size (cm) - Width 0.5 -Current Size (cm) - Depth 0.3 -Total Square Cm 0.5 -Photo Taken Yes -Exudate Amt Small -Exudate Type Serosanguineous -Wound Margin Distinct, Outline Attached -Granulation Amt Large (67-100%) -Granulation Quality Red -Necrosis Amt None Present (0 %) -Structure Exposed N/A -Texture (Blanche-wound Skin Appearance) Scarring -Moisture (Blanche-wound Skin Appearance Dry/Scaly ) -Color (Blanche-wound Skin Appearance) No Abnormality -Temperature (Blanche-wound Skin No Abnormality Appearance) (Pt Warm) -Tenderness on Palpation (Blanche-wound No Skin Appearance) -Ulcer Cleansing Rinsed/ Irrigated with Saline -Foul Odor after Cleansing No -Anesthetic Used 4% Lidocaine Solution WC - Nurse 3 - General Ulcer D/C NN Start: 05/26/20 09:04 Freq: Status: Active Protocol: Activity Type Activity Date Activity User E-Sign Co-Sign Detail Recorded Client Recorded Date Recorded By Document 05/26/20 09:44 [id number] 05/26/20 09:46 05/26/20 09:44 Wound Care Nurse 3 [Wound Dressing] -Foul Odor after Cleansing No -Primary Dressing Applied Fibracol Plus 4x4 -Primary Dressing Covered/Secured Dry Gauze, with Secured with Tape -Fibracol Plus 4x4 1 [Post Procedure Tolerated] -Treatment Response Procedure Tolerated Well Pain Scale: 0-10 Numeric [Pain] -Is Patient Pain Free? Yes - Visit Discharge [Visit Discharge Information] -Discharge Condition Stable -Ambulatory Status Ambulatory -Transportation Private Auto -Notes: Pt applied her own dressing today used Mary today will start Fibricol at home. Musculoskeletal: No Muscle Wasting Neurological: Cranial nerves II-XII grossly intact, Neuro grossly intact Psych/Mental Status: Normal Affect, Appropriate, Alert and oriented to time, place, person, mood and affect Debridement Note Post-Debridement Measurements/Treatment WC - Nurse 3 - General Ulcer D/C NN Start: 05/26/20 09:04 Freq: Status: Active Protocol: Activity Type Activity Date Activity User E-Sign Co-Sign Detail Recorded Client Recorded Date Recorded By Document 05/26/20 09:44 DL [id number] 05/26/20 09:46 DL 05/26/20 09:44 Wound Care Nurse 3 #9 R Groin -Foul Odor after Cleansing No -Primary Dressing Applied Fibracol Plus 4x4 -Primary Dressing Covered/Secured with Dry Gauze, Secured with Tape -Fibracol Plus 4x4 1 Treatment Response Procedure Tolerated Well Pain Scale: 0-10 Numeric Is Patient Pain Free? Yes WC - Visit Discharge Discharge Condition Stable Ambulatory Status Ambulatory Transportation Private Auto Notes: Pt applied her own dressing today used Mary today will start Fibricol at home. Laterality: Right - Groin Type of Debridement: Excisional debridement Anesthesia Used: 5% Lidocaine Gel Depth: Down to and including healthy tissue, in the subcutaneous layer Percentage of wound debrided: 100 Instrument Used: 5mm curette Tissue Removed: Bioburden Severity: Fat Layer Exposed Amount of bleeding with debridement: Mild Bleeding Controlled with: Compression and gauze Patient tolerated procedure well Assessment/Plan Assessment: This is a 65-year-old female with a somewhat complicated and complex past medical history, documented above. In the 1969's, she was diagnosed with malignant melanoma of the right calf, with metastasis to lymph nodes in the right groin. She underwent excision of the melanoma with right groin lymphadenectomy. She was subsequently treated with a long series of radiation treatments to the right groin. At the time of her radiation treatment, it is suspected that the radiation techniques were somewhat primitive and early in their evolution, and it is quite likely that the patient received massive doses of radiation exposure, exceeding doses which would be considered appropriate today. As a result, the patient has developed soft tissue radiation injury, and has previously been treated at our wound care facility in the past on several occasions. She has received several series of approximately 90 hyperbaric oxy gen therapy treatments, in 2012 and again more recently. In review of the patient's past history, each treatment course has been rather protracted in terms of healing. The patient has been referred for consultation at [facility] (Dr. Harding). Medical records related to the patient's visit at [facility] resulted in no significant new recommendations for treatment or management. Subsequently, the patient was referred to a plastic surgeon, Dr. Cassius Whitman. A number of options were discussed. Dr. Frausto proposed a rectus abdominis myocutaneous flap. As a prelude to flap reconstruction, the patient underwent a CT angiogram at [facility] on December 13, 2018. She met with Dr. Frausto later that same day. The patient relates that the nature of the surgical procedure, and the recovery phase, was described in detail, and anticipated to be quite challenging and lengthy. The patient considered her options, but subsequently decided to defer major surgical intervention. The patient has also met with the vascular surgeon at [facility], Dr. Ganga Tong. Once again, the patient was left with the impression that any surgery to reconstruct the area in the right groin could be fraught with complications and a lengthy recovery. The patient subsequently healed by conservative means, and was discharged in January 2020, only to present once again with spontaneous recurrence of the ulceration in the right groin. Plan: This is a 65-year-old female with a complex past medical history, as detailed above. She presents with a recurrence of her right groin ulceration, secondary to soft tissue radiation injury. Patient is well-known to our facility. We are to implement the use of Fibracol topically, which the patient will apply on a daily basis. Nutritional optimization has been recommended. She is to follow-up for reevaluation in 1 week. She is to keep the area clean and dry. Influenza vaccine was not administered today. The patient is not a smoker. She stands 5 feet 8 inches tall. She weighs 195 pounds. Her BMI is 29.6, which places her in an overweight category. Weight loss has been recommended. She is to collaborate with her primary care physician in this regard.
[2020-06-02 10:01] VITALS: BP 162/92; PULSE 85; RESP 16; TEMP 36; BMI 29.7
--- NOTE | 2020-06-02 10:19 | HP.PCM_ITS ---
(1) Overweight (BMI 25.0-29.9) Status: Chronic Code(s): E66.3 - Overweight (2) History of uterine cancer Status: Chronic Code(s): Z85.42 - Personal history of malignant neoplasm of other parts of uterus (3) History of melanoma Status: Chronic Code(s): Z85.820 - Personal history of malignant melanoma of skin (4) Hyperlipidemia Status: Chronic Code(s): E78.5 - Hyperlipidemia, unspecified (5) GERD (gastroesophageal reflux disease) Status: Chronic Code(s): K21.9 - Gastro-esophageal reflux disease without esophagitis (6) Ulcer of right groin Status: Chronic Qualifiers: Non-pressure ulcer stage: with fat layer exposed Code(s): L98.499 - Non-pressure chronic ulcer of skin of other sites with unspecified severity (7) Amputee, above knee Status: Chronic Code(s): Z89.619 - Acquired absence of unspecified leg above knee (8) Soft tissue radionecrosis Status: Chronic Code(s): L59.8 - Other specified disorders of the skin and subcutaneous tissue related to radiation; Y84.2 - Radiological procedure and radiotherapy as the cause of abnormal reaction of the patient, or of later complication, without mention of misadventure at the time of the procedure (9) soft tissue radiation injury Status: Chronic History of Present Illness Date of Service: 06/02/20 Chief Complaint: 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 The patient underwent excision of her melanoma with lymphadenectomy in the right groin. She also underwent lengthy radiation treatments at the [facility] in [place], [place]. Melanoma recurred, and the patient was subsequently treated with monoclonal antibodies in 1984. 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 Treatment included local ulcer care and hyperbaric oxygen therapy. She underwent a total of nearly 90 treatments of hyperbaric oxygen therapy. It is known that she tolerated the therapies well, and derived significant benefit. She has no history of barotrauma to lungs, ears, etc. Her medical history reveals no evidence of contraindications to hyperbaric oxygen therapy. The patient was again treated for an ulceration in the right groin last year and earlier this year, related to soft tissue radiation injury. She subsequently healed in January 2020, and was discharged. Her treatment at that time included local wound care and a total of 90 sessions of hyperbaric oxygen therapy. A series of 10 EpiFix allografts were also used during her course of treatment. Each of the patient's prior courses of treatment in our facility have been protracted, with difficulties encountered in achieving complete healing. Patient presents at this time with a recurrence of her right groin ulceration, again thought to be secondary to soft tissue radiation injury. The ulceration recurred spontaneously on May 16, approximately 10 days ago, prompting the patient to seek treatment at our wound care facility. Since the recurrence of the ulceration, the patient has been using Mary topically. The patient indicates that her health history has not changed since she was last treated in our facility. She has had no recent fevers, sweats, or chills. Past Medical History Past Medical History: Chronic Problems Overweight (BMI 25.0-29.9) (Chronic) History of uterine cancer (Chronic) History of melanoma (Chronic) Hyperlipidemia (Chronic) GERD (gastroesophageal reflux disease) (Chronic) Ulcer of right groin (Chronic) Obesity (BMI 30.0-34.9) (Chronic) Amputee, above knee (Chronic) Soft tissue radionecrosis (Chronic) soft tissue radiation injury (Chronic) Surgical History: - - Patient has previously undergone total hysterectomy. She has undergone excision of melanoma from the right calf, with lymphadenectomy of the right groin in the 1969's. She subsequently required surgeries of the right thigh related to osteomyelitis, MRSA infection, and radiation injury to the right femoral artery. Ultimately, the patient required right above-knee amputation, performed in 2000. She also has a remote history of open reduction and internal fixation of a right ankle fracture. Allergies/Adverse Reactions: Allergies No Known Allergies Allergy (Verified 05/26/20 09:19) Home Medications: Ambulatory Orders Medication Instructions Recorded Famotidine 20 mg PO 06/20/17 Pravastatin [Pravachol] 20 mg PO DAILY 06/20/17 - Family History Maternal - - The patient's mother is 98 years of age and relatively healthy. The patient's father at age of 79 with a history of cardiomyopathy. Lives: Alone Smoking Status: Former smoker Tobacco Use: Non-smoker Alcohol: Rare Drugs: None Review of Systems Constitutional: Denies: Chills, Fever, Weight Change Eyes: Denies: Pain, Vision Change HEENT: Denies: Difficulty Hearing, Difficulty Swallowing, Sinus Congestion Cardiovascular: Denies: Chest Pain, Palpitations Respiratory: Denies: Cough, Shortness of Breath Gastrointestinal: Denies: Diarrhea, Nausea, Vomiting Genitourinary: Denies: Dysuria, Hematuria Endocrine: Denies: Heat/ Cold Intolerance, Polydipsia, Polyuria Hematologic/ Lymphatic: Denies: Easy Bruising, Easy Bleeding - Physical Exam Vital Signs Temp Pulse Resp BP 96.8 F L 85 16 162/92 H 06/02/20 10:01 06/02/20 10:01 06/02/20 10:01 06/02/20 10:01 General: Alert, Oriented x3, Cooperative, No apparent distress, Well developed, Well nourished HEENT: Atraumatic, PERRLA, EOMI, Normocephalic Oral: Moist Mucosa Neck: No JVD Lungs: Normal air movement Abdomen: Non-Distended Extremities: No clubbing, No cyanosis, No edema, No Calf Tenderness, - - A well- healed right above-knee amputation stump is noted Addt'l Wound Findings: The wound in the right groin persists. It appears to be smaller in size. Dimensions are documented elsewhere. There is no sign of infection or cellulitis. There is a small amount of bioburden. Wound Measurements and Assessment WC - Nurse 1 - General Ulcer Measurement Start: 05/26/20 09:04 Freq: Status: Active Protocol: Activity Type Activity Date Activity User E-Sign Co-Sign Detail Recorded Client Recorded Date Recorded By Document 06/02/20 10:01 HARDIK [id number] 06/02/20 10:03 HARDIK 06/02/20 10:01 Wound Center Nurse 1 [Ulcer Assessment] #9 R Groin -Combined with other wound No -Current Size (cm) - Length 0.8 -Current Size (cm) - Width 0.2 -Current Size (cm) - Depth 0.2 -Total Square Cm 0.16 -Photo Taken No -Epithelialization Small 1-33% -Tunneling No -Undermining/Tunneling No -Circular Undermining No -Exudate Amt Small -Exudate Type Serosanguineous -Wound Margin Flat & Intact -Granulation Amt Medium (34-66%) -Granulation Quality Red -Slough/Fibrin Yes -Necrosis Amt Small (1-33%) -Necrotic Tissue Type Adherent Slough -Structure Exposed N/A -Texture (Blanche-wound Skin Appearance) Assessed -Moisture (Blanche-wound Skin Appearance Assessed,Dry/ ) Scaly -Color (Blanche-wound Skin Appearance) Assessed -Temperature (Blanche-wound Skin No Abnormality Appearance) (Pt Warm) -Tenderness on Palpation (Blanche-wound No Skin Appearance) -Ulcer Cleansing Rinsed/ Irrigated with Saline -Foul Odor after Cleansing No -Anesthetic Used 4% Lidocaine Solution,5% Lidocaine Gel [Edema Assessment] -Lower Limb Edema Present NA Musculoskeletal: No Muscle Wasting Neurological: Cranial nerves II-XII grossly intact, Neuro grossly intact Psych/Mental Status: Normal Affect, Appropriate, Alert and oriented to time, place, person, mood and affect Debridement Note Post-Debridement Measurements/Treatment WC - Nurse 2 - General Ulcer CM Notes Start: 05/26/20 09:04 Freq: Status: Active Protocol: Activity Type Activity Date Activity User E-Sign Co-Sign Detail Recorded Client Recorded Date Recorded By Document 05/26/20 12:26 PL [id number] 05/26/20 12:28 PL 05/26/20 12:26 Wound Center Nurse 2 #9 R Groin -Time 09:31 -Correct Patient Yes -Correct Side, Site, Position Yes -Correct Procedure Yes -Procedure Performed Yes -Type of Procedure Debridement -Clinical Debridement Subcutaneous -Tissue Removed Subcutaneous -Post Debridement (cm) - Length 1 -Post Debridement (cm) - Width 0.5 -Post Debridement (cm) - Depth 0.3 -Total Square (Post) (cm) 0.5 -Area of Debridement (cm) - Length 1 -Area of Debridement (cm) - Width 0.5 -Total Square (Area) (cm) 0.5 -Tunneling No -Undermining/Tunneling No -Circular Undermining No -Wound/Ulcer Outcome Not Healed -Ulcer Cleansing Rinsed/ Irrigated with Saline -Foul Odor after Cleansing No -Bioengineered Tissue No -Bleeding Controlled with Pressure -Treatment Response Procedure Tolerated Well -Debridement - Subq, 1st 20sq cm Yes Pain Scale: 0-10 Numeric Is Patient Pain Free? Yes - Nurse 3 - General Ulcer D/C NN Start: 05/26/20 09:04 Freq: Status: Active Protocol: Activity Type Activity Date Activity User E-Sign Co-Sign Detail Recorded Client Recorded Date Recorded By Document 05/26/20 09:44 DL [id number] 05/26/20 09:46 DL 05/26/20 09:44 Wound Care Nurse 3 #9 R Groin -Foul Odor after Cleansing No -Primary Dressing Applied Fibracol Plus 4x4 -Primary Dressing Covered/Secured with Dry Gauze, Secured with Tape -Fibracol Plus 4x4 1 Treatment Response Procedure Tolerated Well Pain Scale: 0-10 Numeric Is Patient Pain Free? Yes WC - Visit Discharge Discharge Condition Stable Ambulatory Status Ambulatory Transportation Private Auto Notes: Pt applied her own dressing today used Mary today will start Fibricol at home. Laterality: Right - Groin Type of Debridement: Excisional debridement Anesthesia Used: 5% Lidocaine Gel Depth: Down to and including healthy tissue, in the subcutaneous layer Percentage of wound debrided: 100 Instrument Used: 3mm curette Tissue Removed: Bioburden Severity: Fat Layer Exposed Amount of bleeding with debridement: Mild Bleeding Controlled with: Compression and gauze Patient tolerated procedure well Assessment/Plan Active Problems Overweight (BMI 25.0-29.9) (Chronic) History of uterine cancer (Chronic) History of melanoma (Chronic) Hyperlipidemia (Chronic) GERD (gastroesophageal reflux disease) (Chronic) Ulcer of right groin (Chronic) Amputee, above knee (Chronic) Soft tissue radionecrosis (Chronic) soft tissue radiation injury (Chronic) Assessment: This is a 65-year-old female with a somewhat complicated and complex past medical history, documented above. In the 1969's, she was diagnosed with malignant melanoma of the right calf, with metastasis to lymph nodes in the right groin. She underwent excision of the melanoma with right groin lymphadenectomy. She was subsequently treated with a long series of radiation treatments to the right groin. At the time of her radiation treatment, it is suspected that the radiation techniques were somewhat primitive and early in their evolution, and it is quite likely that the patient received massive doses of radiation exposure, exceeding doses which would be considered appropriate today. As a result, the patient has developed soft tissue radiation injury, and has previously been treated at our wound care facility in the past on several occasions. She has received several series of approximately 90 hyperbaric oxygen therapy treatments, in 2011 and again more recently. In review of the patient's past history, each treatment course has been rather protracted in t erms of healing. The patient has been referred for consultation at [facility] (Dr. Harding). Medical records related to the patient's visit at [facility] resulted in no significant new recommendations for treatment or management. Subsequently, the patient was referred to a plastic surgeon, Dr. Cassius Whitman. A number of options were discussed. Dr. Frausto proposed a rectus abdominis myocutaneous flap. As a prelude to flap reconstruction, the patient underwent a CT angiogram at [facility] on December 13, 2018. She met with Dr. Frausto later that same day. The patient relates that the nature of the surgical procedure, and the recovery phase, was described in detail, and anticipated to be quite challenging and lengthy. The patient considered her options, but subsequently decided to defer major surgical intervention. The patient has also met with the vascular surgeon at [facility], Dr. Ganga Tong. Once again, the patient was left with the impression that any surgery to reconstruct the area in the right groin could be fraught with complications and a lengthy recovery. The patient subsequently healed by conservative means, and was discharged in January 2020, only to present once again with spontaneous recurrence of the ulceration in the right groin. Plan: This is a 65-year-old female with a complex past medical history, as detailed above. She presents with a recurrence of her right groin ulceration, secondary to soft tissue radiation injury. Patient is well-known to our facility. We are to continue the use of Fibracol topically, which the patient will apply on a daily basis. Nutritional optimization has been recommended. She is to follow-up for reevaluation in 1 week. She is to keep the area clean and dry. Influenza vaccine was not administered today. The patient is not a smoker. She stands 5 feet 8 inches tall. She weighs 195 pounds. Her BMI is 29.6, which places her in an overweight category. Weight loss has been recommended. She is to collaborate with her primary care physician in this regard.
== END 2020-06-08 23:59 ==
LOC: WC 10:00
PROVIDERS: Family Provider Family Medicine; PCP Family Medicine; Referring Provider Surgery; Visit Provider Surgery
DX: L97.112 Non-pressure chronic ulcer of right thigh with fat layer exposed (principal); L59.8 Other specified disorders of the skin and subcutaneous tissue related to radiation; Y84.2 Radiological procedure and radiotherapy as the cause of abnormal reaction of the patient, or of later complication, without mention of misadventure at the time of the procedure; E66.9 Obesity, unspecified; K21.9 Gastro-esophageal reflux disease without esophagitis; E78.5 Hyperlipidemia, unspecified; Z85.42 Personal history of malignant neoplasm of other parts of uterus; Z89.611 Acquired absence of right leg above knee; E66.3 Overweight; Z68.29 Body mass index [BMI] 29.0-29.9, adult
CPT/HCPCS: 11042; 99213; G0463

== ENCOUNTER 2020-07-07 10:00 | Outpatient (RCR) | payer MEDICARE, OTHER, SELFPAY ==
[2020-06-09 00:04] VITALS: BP 162/92; PULSE 85; RESP 16; TEMP 36
[2020-06-09 09:45] VITALS: BP 153/82; PULSE 91; RESP 18; TEMP 36.1; BMI 29.7
[2020-06-09 10:14] VITALS: BP 153/82; PULSE 88
--- NOTE | 2020-06-09 10:14 | PCM.WC.HP ---
(1) Overweight (BMI 25.0-29.9) Status: Chronic Code(s): E66.3 - Overweight (2) History of uterine cancer Status: Chronic Code(s): Z85.42 - Personal history of malignant neoplasm of other parts of uterus (3) History of melanoma Status: Chronic Code(s): Z85.820 - Personal history of malignant melanoma of skin (4) Hyperlipidemia Status: Chronic Code(s): E78.5 - Hyperlipidemia, unspecified (5) GERD (gastroesophageal reflux disease) Status: Chronic Code(s): K21.9 - Gastro-esophageal reflux disease without esophagitis (6) Ulcer of right groin Status: Chronic Qualifiers: Code(s): L98.499 - Non-pressure chronic ulcer of skin of other sites with unspecified severity (7) Obesity (BMI 30.0-34.9) Status: Chronic Code(s): E66.9 - Obesity, unspecified (8) Amputee, above knee Status: Chronic Code(s): Z89.619 - Acquired absence of unspecified leg above knee (9) Soft tissue radionecrosis Status: Chronic Code(s): L59.8 - Other specified disorders of the skin and subcutaneous tissue related to radiation; Y84.2 - Radiological procedure and radiotherapy as the cause of abnormal reaction of the patient, or of later complication, without mention of misadventure at the time of the procedure (10) soft tissue radiation injury Status: Chronic History of Present Illness Date of Service: 06/09/20 Chief Complaint: 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 The patient underwent excision of her melanoma with lymphadenectomy in the right groin. She also underwent lengthy radiation treatments at the [facility] in [place], [place]. Melanoma recurred, and the patient was subsequently treated with monoclonal antibodies in 1984. 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 Treatment included local ulcer care and hyperbaric oxygen therapy. She underwent a total of nearly 90 treatments of hyperbaric oxygen therapy. It is known that she tolerated the therapies well, and derived significant benefit. She has no history of barotrauma to lungs, ears, etc. Her medical history reveals no evidence of contraindications to hyperbaric oxygen therapy. The patient was again treated for an ulceration in the right groin last year and earlier this year, related to soft tissue radiation injury. She subsequently healed in January 2020, and was discharged. Her treatment at that time included local wound care and a total of 90 sessions of hyperbaric oxygen therapy. A series of 10 EpiFix allografts were also used during her course of treatment. Each of the patient's prior courses of treatment in our facility have been protracted, with difficulties encountered in achieving complete healing. Patient presents at this time with a recurrence of her right groin ulceration, again thought to be secondary to soft tissue radiation injury. The ulceration recurred spontaneously on May 16, approximately 10 days ago, prompting the patient to seek treatment at our wound care facility. Since the recurrence of the ulceration, the patient has been using Mary topically. The patient indicates that her health history has not changed since she was last treated in our facility. She has had no recent fevers, sweats, or chills. Past Medical History Past Medical History: Chronic Problems Overweight (BMI 25.0-29.9) (Chronic) History of uterine cancer (Chronic) History of melanoma (Chronic) Hyperlipidemia (Chronic) GERD (gastroesophageal reflux disease) (Chronic) Ulcer of right groin (Chronic) Obesity (BMI 30.0-34.9) (Chronic) Amputee, above knee (Chronic) Soft tissue radionecrosis (Chronic) soft tissue radiation injury (Chronic) Surgical History: - - Patient has previously undergone total hysterectomy. She has undergone excision of melanoma from the right calf, with lymphadenectomy of the right groin in the 1969's. She subsequently required surgeries of the right thigh related to osteomyelitis, MRSA infection, and radiation injury to the right femoral artery. Ultimately, the patient required right above-knee amputation, performed in 2000. She also has a remote history of open reduction and internal fixation of a right ankle fracture. Allergies/Adverse Reactions: Allergies No Known Allergies Allergy (Verified 05/26/20 09:19) Home Medications: Ambulatory Orders Medication Instructions Recorded Famotidine 20 mg PO 06/20/17 Pravastatin [Pravachol] 20 mg PO DAILY 06/20/17 - Family History Maternal - - The patient's mother is 98 years of age and relatively healthy. The patient's father at age of 79 with a history of cardiomyopathy. Smoking Status: Former smoker Tobacco Use: Non-smoker Review of Systems Constitutional: Denies: Chills, Fever, Weight Change Eyes: Denies: Pain, Vision Change HEENT: Denies: Difficulty Hearing, Difficulty Swallowing, Sinus Congestion Cardiovascular: Denies: Chest Pain, Palpitations Respiratory: Denies: Cough, Shortness of Breath Gastrointestinal: Denies: Diarrhea, Nausea, Vomiting Genitourinary: Denies: Dysuria, Hematuria Endocrine: Denies: Heat/ Cold Intolerance, Polydipsia, Polyuria Hematologic/ Lymphatic: Denies: Easy Bruising, Easy Bleeding - Physical Exam Vital Signs Temp Pulse Resp BP 96.9 F L 91 18 153/82 H 06/09/20 09:45 06/09/20 09:45 06/09/20 09:45 06/09/20 09:45 General: Alert, Oriented x3, Cooperative, No apparent distress, Well developed, Well nourished HEENT: Atraumatic, PERRLA, EOMI, Normocephalic Oral: Moist Mucosa Neck: No JVD Lungs: Normal air movement Abdomen: Non-Distended Extremities: No clubbing, No cyanosis, No edema, No Calf Tenderness, - - A well-healed right above-knee amputation stump is noted. The ulceration in the right groin persists. Dimensions are documented elsewhere. There is no sign of infection or cellulitis. Visually, it appears to be slightly smaller than previously noted. There is a small amount of bioburden. Skin: No rashes Wound Measurements and Assessment WC - Nurse 1 - General Ulcer Measurement Start: 06/09/20 09:45 Freq: Status: Active Protocol: Activity Type Activity Date Activity User E-Sign Co-Sign Detail Recorded Client Recorded Date Recorded By Document 06/09/20 09:45 DL [id number] 06/09/20 09:49 DL 06/09/20 09:45 Wound Center Nurse 1 [Ulcer Assessment] #9 R Groin -Current Size (cm) - Length 0.8 -Current Size (cm) - Width 0.3 -Current Size (cm) - Depth 0.2 -Total Square Cm 0.24 -Photo Taken No -Exudate Amt Small -Exudate Type Serosanguineous -Wound Margin Distinct, Outline Attached -Granulation Amt Small (1-33%) -Granulation Quality Mulat -Necrosis Amt None Present (0 %) -Structure Exposed N/A -Texture (Blanche-wound Skin Appearance) Scarring -Moisture (Blanche-wound Skin Appearance Dry/Scaly ) -Color (Blanche-wound Skin Appearance) No Abnormality, Rubor -Temperature (Blanche-wound Skin No Abnormality Appearance) (Pt Warm) -Ulcer Cleansing Rinsed/ Irrigated with Saline -Foul Odor after Cleansing No -Anesthetic Used 4% Lidocaine Solution Musculoskeletal: No Muscle Wasting Neurological: Cranial nerves II-XII grossly intact, Neuro grossly intact Psych/Mental Status: Normal Affect, Appropriate, Alert and oriented to time, place, person, mood and affect Debridement Note Laterality: Right - Right groin Type of Debridement: Excisional debridement Anesthesia Used: 5% Lidocaine Gel Depth: Down to and including healthy tissue, in the subcutaneous layer Percentage of wound debrided: 100 Instrument Used: 3mm curette Tissue Removed: Bioburden Severity: Fat Layer Exposed Amount of bleeding with debridement: Mild Bleeding Controlled with: Compression and gauze Patient tolerated procedure well Assessment/Plan Assessment: This is a 65-year-old female with a somewhat complicated and complex past medical history, documented above. In the 1970's, she was diagnosed with malignant melanoma of the right calf, with metastasis to lymph nodes in the right groin. She underwent excision of the melanoma with right groin lymphadenectomy. She was subsequently treated with a long series of radiation treatments to the right groin. At the time of her radiation treatment, it is suspected that the radiation techniques were somewhat primitive and early in their evolution, and it is quite likely that the patient received massive doses of radiation exposure, exceeding doses which would be considered appropriate today. As a result, the patient has developed soft tissue radiation injury, and has previously been treated at our wound care facility in the past on several occasions. She has received several series of approximately 90 hyperbaric oxygen therapy treatments, in 2011 and again more recently. In review of the patient's past history, each treatment course has been rather protracted in terms of healing. The patient has been referred for consultation at [facility] (Dr. Harding). Medical records related to the patient's visit at [facility] resulted in no significant new recommendations for treatment or management. Subsequently, the patient was referred to a plastic surgeon, Dr. Cassius Whitman. A number of options were discussed. Dr. Frausto proposed a rectus abdominis myocutaneous flap. As a prelude to flap reconstruction, the patient underwent a CT angiogram at [facility] on December 13, 2018. She met with Dr. Frausto later that same day. The patient relates that the nature of the surgical procedure, and the recovery phase, was described in detail, and anticipated to be quite challenging and lengthy. The patient considered her options, but subsequently decided to defer major surgical intervention. The patient has also met with the vascular surgeon at [facility], Dr. Ganga Tong. Once again, the patient was left with the impression that any surgery to reconstruct the area in the right groin could be fraught with complications and a lengthy recovery. The patient subsequently healed by conservative means, and was discharged in January 2020, only to present once again with spontaneous recurrence of the ulceration in the right groin. Plan: This is a 65-year-old female with a complex past medical history, as detailed above. She presented with a recurrence of her right groin ulceration, secondary to soft tissue radiation injury. Patient is well-known to our facility. We are to continue the use of Fibracol topically, which the patient will apply on a daily basis. Nutritional optimization has been recommended. She is to follow-up for reevaluation in 1 week. She is to keep the area clean and dry. Influenza vaccine was not administered today. The patient is not a smoker. She stands 5 feet 8 inches tall. She weighs 195 pounds. Her BMI is 29.6, which places her in an overweight category. Weight loss has been recommended. She is to collaborate with her primary care physician in this regard.
[2020-06-17 13:14] VITALS: BP 169/82; PULSE 90; TEMP 35.8; BMI 29.7
--- NOTE | 2020-06-17 14:15 | HP.PCM_ITS ---
(1) Overweight (BMI 25.0-29.9) Status: Chronic Code(s): E66.3 - Overweight (2) History of uterine cancer Status: Chronic Code(s): Z85.42 - Personal history of malignant neoplasm of other parts of uterus (3) History of melanoma Status: Chronic Code(s): Z85.820 - Personal history of malignant melanoma of skin (4) Hyperlipidemia Status: Chronic Code(s): E78.5 - Hyperlipidemia, unspecified (5) GERD (gastroesophageal reflux disease) Status: Chronic Code(s): K21.9 - Gastro-esophageal reflux disease without esophagitis (6) Ulcer of right groin Status: Chronic Qualifiers: Non-pressure ulcer stage: with fat layer exposed Code(s): L98.499 - Non-pressure chronic ulcer of skin of other sites with unspecified severity (7) Obesity (BMI 30.0-34.9) Status: Chronic Code(s): E66.9 - Obesity, unspecified (8) Amputee, above knee Status: Chronic Code(s): Z89.619 - Acquired absence of unspecified leg above knee (9) Soft tissue radionecrosis Status: Chronic Code(s): L59.8 - Other specified disorders of the skin and subcutaneous tissue related to radiation; Y84.2 - Radiological procedure and radiotherapy as the cause of abnormal reaction of the patient, or of later complication, without mention of misadventure at the time of the procedure (10) soft tissue radiation injury Status: Chronic History of Present Illness Date of Service: 06/17/20 Chief Complaint: 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 The patient underwent excision of her melanoma with lymphadenectomy in the right groin. She also underwent lengthy radiation treatments at the [facility] in [place], [place]. Melanoma recurred, and the patient was subsequently treated with monoclonal antibodies in 1984. 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 Treatment included local ulcer care and hyperbaric oxygen therapy. She underwent a total of nearly 90 treatments of hyperbaric oxygen therapy. It is known that she tolerated the therapies well, and derived significant benefit. She has no history of barotrauma to lungs, ears, etc. Her medical history reveals no evidence of contraindications to hyperbaric oxygen therapy. The patient was again treated for an ulceration in the right groin last year and earlier this year, related to soft tissue radiation injury. She subsequently healed in January 2020, and was discharged. Her treatment at that time included local wound care and a total of 90 sessions of hyperbaric oxygen therapy. A series of 10 EpiFix allografts were also used during her course of treatment. Each of the patient's prior courses of treatment in our facility have been protracted, with difficulties encountered in achieving complete healing. Patient presents at this time with a recurrence of her right groin ulceration, again thought to be secondary to soft tissue radiation injury. The ulceration recurred spontaneously on May 16, approximately 10 days ago, prompting the patient to seek treatment at our wound care facility. Since the recurrence of the ulceration, the patient has been using Mary topically. The patient indicates that her health history has not changed since she was last treated in our facility. She has had no recent fevers, sweats, or chills. Past Medical History Past Medical History: Chronic Problems Overweight (BMI 25.0-29.9) (Chronic) History of uterine cancer (Chronic) History of melanoma (Chronic) Hyperlipidemia (Chronic) GERD (gastroesophageal reflux disease) (Chronic) Ulcer of right groin (Chronic) Obesity (BMI 30.0-34.9) (Chronic) Amputee, above knee (Chronic) Soft tissue radionecrosis (Chronic) soft tissue radiation injury (Chronic) Surgical History: - - Patient has previously undergone total hysterectomy. She has undergone excision of melanoma from the right calf, with lymphadenectomy of the right groin in the 1969's. She subsequently required surgeries of the right thigh related to osteomyelitis, MRSA infection, and radiation injury to the right femoral artery. Ultimately, the patient required right above-knee amputation, performed in 2000. She also has a remote history of open reduction and internal fixation of a right ankle fracture. Allergies/Adverse Reactions: Allergies No Known Allergies Allergy (Verified 11/17/20 09:19) Home Medications: Ambulatory Orders Medication Instructions Recorded Famotidine 20 mg PO 06/20/17 Pravastatin [Pravachol] 20 mg PO DAILY 06/20/17 - Family History Maternal - - The patient's mother is 98 years of age and relatively healthy. The patient's father at age of 79 with a history of cardiomyopathy. Smoking Status: Former smoker Tobacco Use: Non-smoker Review of Systems Constitutional: Denies: Chills, Fever, Weight Change Eyes: Denies: Pain, Vision Change HEENT: Denies: Difficulty Hearing, Difficulty Swallowing, Sinus Congestion Cardiovascular: Denies: Chest Pain, Palpitations Respiratory: Denies: Cough, Shortness of Breath Gastrointestinal: Denies: Diarrhea, Nausea, Vomiting Genitourinary: Denies: Dysuria, Hematuria Endocrine: Denies: Heat/ Cold Intolerance, Polydipsia, Polyuria Hematologic/ Lymphatic: Denies: Easy Bruising, Easy Bleeding - Physical Exam Vital Signs Temp Pulse Resp BP 96.5 F L 90 18 169/82 H 06/17/20 13:14 06/17/20 13:14 06/09/20 09:45 06/17/20 13:14 General: Alert, Oriented x3, Cooperative, No apparent distress, Well developed, Well nourished HEENT: Atraumatic, PERRLA, EOMI, Normocephalic Oral: Moist Mucosa Neck: No JVD Lungs: Normal air movement Abdomen: Non-Distended Extremities: No clubbing, No cyanosis, No edema, No Calf Tenderness, - - A well- healed right above-knee amputation stump is noted. Addt'l Wound Findings: The ulceration in the right groin persists. It is slightly smaller in size. Dimensions are documented elsewhere. There is a small amount of bioburden. There is no sign of infection or cellulitis. Skin: No rashes Wound Measurements and Assessment WC - Nurse 1 - General Ulcer Measurement Start: 06/09/20 09:45 Freq: Status: Active Protocol: Activity Type Activity Date Activity User E-Sign Co-Sign Detail Recorded Client Recorded Date Recorded By Document 06/17/20 13:14 SONNY [id number] 06/17/20 13:20 KR 06/17/20 13:14 Wound Center Nurse 1 [Ulcer Assessment] #9 R Groin -Current Size (cm) - Length 0.7 -Current Size (cm) - Width 0.4 -Current Size (cm) - Depth 0.1 -Total Square Cm 0.28 -Exudate Amt Small -Exudate Type Serosanguineous -Wound Margin Distinct, Outline Attached -Granulation Amt Small (1-33%) -Granulation Quality Portal -Necrosis Amt Small (1-33%) -Necrotic Tissue Type Adherent Slough -Texture (Blanche-wound Skin Appearance) Assessed, Scarring -Moisture (Blanche-wound Skin Appearance Assessed ) -Color (Blanche-wound Skin Appearance) Assessed -Temperature (Blanche-wound Skin No Abnormality Appearance) (Pt Warm) -Ulcer Cleansing Rinsed/ Irrigated with Saline -Foul Odor after Cleansing No -Anesthetic Used 4% Lidocaine Solution - Nurse 3 - General Ulcer D/C NN Start: 06/09/20 09:45 Freq: Status: Active Protocol: Activity Type Activity Date Activity User E-Sign Co-Sign Detail Recorded Client Recorded Date Recorded By Document 06/17/20 13:59 [id number] 06/17/20 13:59 SONNY 06/17/20 13:59 Wound Care Nurse 3 [Wound Dressing] -Ulcer Cleansing Rinsed/ Irrigated with Saline -Foul Odor after Cleansing No -Negative Pressure Wound Therapy N/A Pain Scale: 0-10 Numeric [Pain] -Is Patient Pain Free? Yes - Visit Discharge [Visit Discharge Information] -Discharge Condition Stable -Ambulatory Status Ambulatory -Transportation Private Auto Musculoskeletal: No Muscle Wasting Neurological: Cranial nerves II-XII grossly intact, Neuro grossly intact Psych/Mental Status: Normal Affect, Appropriate, Alert and oriented to time, place, person, mood and affect Debridement Note Post-Debridement Measurements/Treatment - Nurse 2 - General Ulcer CM Notes Start: 06/09/20 09:45 Freq: Status: Active Protocol: Activity Type Activity Date Activity User E-Sign Co-Sign Detail Recorded Client Recorded Date Recorded By Document 06/09/20 15:56 HITESH [id number] 06/09/20 15:57 PL 06/09/20 15:56 Wound Center Nurse 2 #9 R Groin -Time 10:08 -Correct Patient Yes -Correct Side, Site, Position Yes -Correct Procedure Yes -Procedure Performed Yes -Type of Procedure Debridement -Clinical Debridement Subcutaneous -Tissue Removed Subcutaneous -Post Debridement (cm) - Length 0.8 -Post Debridement (cm) - Width 0.3 -Post Debridement (cm) - Depth 0.2 -Total Square (Post) (cm) 0.24 -Area of Debridement (cm) - Length 0.8 -Area of Debridement (cm) - Width 0.3 -Total Square (Area) (cm) 0.24 -Tunneling No -Undermining/Tunneling No -Circular Undermining No -Wound/Ulcer Outcome Not Healed -Ulcer Cleansing Rinsed/ Irrigated with Saline -Foul Odor after Cleansing No -Bioengineered Tissue No -Debridement - Subq, 1st 20sq cm Yes Pain Scale: 0-10 Numeric Is Patient Pain Free? Yes - Nurse 3 - General Ulcer D/C NN Start: 06/09/20 09:45 Freq: Status: Active Protocol: Activity Type Activity Date Activity User E-Sign Co-Sign Detail Recorded Client Recorded Date Recorded By Document 06/09/20 10:14 DL [id number] 06/09/20 10:16 DL Document 06/17/20 13:59 KR [id number] 06/17/20 13:59 KR 06/09/20 06/17/20 10:14 13:59 Wound Care Nurse 3 #9 R Groin -Ulcer Cleansing Rinsed/ Rinsed/ Irrigated with Irrigated with Saline Saline -Foul Odor after Cleansing No No -Negative Pressure Wound Therapy N/A -Other Dressing Fibricol -Primary Dressing Covered/Secured with Dry Gauze, Secured with Tape Treatment Response Procedure Tolerated Well Vital Signs Pulse Rate (60-100) 88 Pulse Location Monitor Blood Pressure (90/60-120/80) 153/82 H Blood Pressure Mean (mm Hg) 105 Pain Scale: 0-10 Numeric Is Patient Pain Free? Yes Yes - Visit Discharge Discharge Condition Stable Stable Ambulatory Status Ambulatory Ambulatory Transportation Private Auto Private Auto Laterality: Right - Groin Type of Debridement: Excisional debridement Anesthesia Used: 5% Lidocaine Gel Depth: Down to and including healthy tissue, in the subcutaneous layer Percentage of wound debrided: 100 Instrument Used: 3mm curette Tissue Removed: Bioburden Severity: Fat Layer Exposed Amount of bleeding with debridement: Mild Bleeding Controlled with: Compression and gauze Patient tolerated procedure well Assessment/Plan Active Problems Overweight (BMI 25.0-29.9) (Chronic) History of uterine cancer (Chronic) History of melanoma (Chronic) Hyperlipidemia (Chronic) GERD (gastroesophageal reflux disease) (Chronic) Ulcer of right groin (Chronic) Obesity (BMI 30.0-34.9) (Chronic) Amputee, above knee (Chronic) Soft tissue radionecrosis (Chronic) soft tissue radiation injury (Chronic) Assessment: This is a 65-year-old female with a somewhat complicated and complex past medical history, documented above. In the 1970's, she was diagnosed with malignant melanoma of the right calf, with metastasis to lymph nodes in the right groin. She underwent excision of the melanoma with right groin lymphaden ectomy. She was subsequently treated with a long series of radiation treatments to the right groin. At the time of her radiation treatment, it is suspected that the radiation techniques were somewhat primitive and early in their evolution, and it is quite likely that the patient received massive doses of radiation exposure, exceeding doses which would be considered appropriate today. As a result, the patient has developed soft tissue radiation injury, and has previously been treated at our wound care facility in the past on several occasions. She has received several series of approximately 90 hyperbaric oxygen therapy treatments, in 2011 and again more recently. In review of the patient's past history, each treatment course has been rather protracted in terms of healing. The patient has been referred for consultation at [facility] (Dr. Harding). Medical records related to the patient's visit at [facility] resulted in no significant new recommendations for treatment or management. Subsequently, the patient was referred to a plastic surgeon, Dr. Cassius Whitman. A number of options were discussed. Dr. Frausto proposed a rectus abdominis myocutaneous flap. As a prelude to flap reconstruction, the patient underwent a CT angiogram at [facility] on December 13, 2018. She met with Dr. Frausto later that same day. The patient relates that the nature of the surgical procedure, and the recovery phase, was described in detail, and anticipated to be quite challenging and lengthy. The patient considered her options, but subsequently decided to defer major surgical intervention. The patient has also met with the vascular surgeon at [facility], Dr. Ganga Tong. Once again, the patient was left with the impression that any surgery to reconstruct the area in the right groin could be fraught with complications and a lengthy recovery. The patient subsequently healed by conservative means, and was discharged in January 2020, only to present once again with spontaneous recurrence of the ulceration in the right groin. Plan: This is a 65-year-old female with a complex past medical history, as detailed above. She presented with a recurrence of her right groin ulceration, secondary to soft tissue radiation injury. Patient is well-known to our facility. We are to continue the use of Fibracol topically, which the patient will apply on a daily basis. Nutritional optimization has been recommended. She is to follow-up for reevaluation in 1 week. She is to keep the area clean and dry. Influenza vaccine was not administered today. The patient is not a smoker. She stands 5 feet 8 inches tall. She weighs 195 pounds. Her BMI is 29.6, which places her in an overweight category. Weight loss has been recommended. She is to collaborate with her primary care physician in this regard.
[2020-06-23 10:13] VITALS: BP 164/71; PULSE 80; RESP 16; TEMP 36; BMI 29.7
--- NOTE | 2020-06-23 12:15 | PCM.WC.HP ---
(1) Overweight (BMI 25.0-29.9) Status: Chronic Code(s): E66.3 - Overweight (2) History of uterine cancer Status: Chronic Code(s): Z85.42 - Personal history of malignant neoplasm of other parts of uterus (3) History of melanoma Status: Chronic Code(s): Z85.820 - Personal history of malignant melanoma of skin (4) Hyperlipidemia Status: Chronic Code(s): E78.5 - Hyperlipidemia, unspecified (5) GERD (gastroesophageal reflux disease) Status: Chronic Code(s): K21.9 - Gastro-esophageal reflux disease without esophagitis (6) Ulcer of right groin Status: Chronic Qualifiers: Non-pressure ulcer stage: with fat layer exposed Code(s): L98.499 - Non-pressure chronic ulcer of skin of other sites with unspecified severity (7) Obesity (BMI 30.0-34.9) Status: Chronic Code(s): E66.9 - Obesity, unspecified (8) Amputee, above knee Status: Chronic Code(s): Z89.619 - Acquired absence of unspecified leg above knee (9) Soft tissue radionecrosis Status: Chronic Code(s): L59.8 - Other specified disorders of the skin and subcutaneous tissue related to radiation; Y84.2 - Radiological procedure and radiotherapy as the cause of abnormal reaction of the patient, or of later complication, without mention of misadventure at the time of the procedure (10) soft tissue radiation injury Status: Chronic History of Present Illness Date of Service: 06/23/20 Chief Complaint: 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 The patient underwent excision of her melanoma with lymphadenectomy in the right groin. She also underwent lengthy radiation treatments at the [facility] in [place], [place]. Melanoma recurred, and the patient was subsequently treated with monoclonal antibodies in 1984. 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 Treatment included local ulcer care and hyperbaric oxygen therapy. She underwent a total of nearly 90 treatments of hyperbaric oxygen therapy. It is known that she tolerated the therapies well, and derived significant benefit. She has no history of barotrauma to lungs, ears, etc. Her medical history reveals no evidence of contraindications to hyperbaric oxygen therapy. The patient was again treated for an ulceration in the right groin last year and earlier this year, related to soft tissue radiation injury. She subsequently healed in January 2020, and was discharged. Her treatment at that time included local wound care and a total of 90 sessions of hyperbaric oxygen therapy. A series of 10 EpiFix allografts were also used during her course of treatment. Each of the patient's prior courses of treatment in our facility have been protracted, with difficulties encountered in achieving complete healing. Patient presents at this time with a recurrence of her right groin ulceration, again thought to be secondary to soft tissue radiation injury. The ulceration recurred spontaneously on May 16, approximately 10 days ago, prompting the patient to seek treatment at our wound care facility. Since the recurrence of the ulceration, the patient has been using Mary topically. The patient indicates that her health history has not changed since she was last treated in our facility. She has had no recent fevers, sweats, or chills. Past Medical History Past Medical History: Chronic Problems Overweight (BMI 25.0-29.9) (Chronic) History of uterine cancer (Chronic) History of melanoma (Chronic) Hyperlipidemia (Chronic) GERD (gastroesophageal reflux disease) (Chronic) Ulcer of right groin (Chronic) Obesity (BMI 30.0-34.9) (Chronic) Amputee, above knee (Chronic) Soft tissue radionecrosis (Chronic) soft tissue radiation injury (Chronic) Surgical History: - - Patient has previously undergone total hysterectomy. She has undergone excision of melanoma from the right calf, with lymphadenectomy of the right groin in the 1969's. She subsequently required surgeries of the right thigh related to osteomyelitis, MRSA infection, and radiation injury to the right femoral artery. Ultimately, the patient required right above-knee amputation, performed in 2000. She also has a remote history of open reduction and internal fixation of a right ankle fracture. Allergies/Adverse Reactions: Allergies No Known Allergies Allergy (Verified 11/17/20 09:19) Home Medications: Ambulatory Orders Medication Instructions Recorded Famotidine 20 mg PO 06/20/17 Pravastatin [Pravachol] 20 mg PO DAILY 06/20/17 - Family History Maternal - - The patient's mother is 98 years of age and relatively healthy. The patient's father at age of 79 with a history of cardiomyopathy. Smoking Status: Former smoker Tobacco Use: Non-smoker Review of Systems Constitutional: Denies: Chills, Fever, Weight Change Eyes: Denies: Pain, Vision Change HEENT: Denies: Difficulty Hearing, Difficulty Swallowing, Sinus Congestion Cardiovascular: Denies: Chest Pain, Palpitations Respiratory: Denies: Cough, Shortness of Breath Gastrointestinal: Denies: Diarrhea, Nausea, Vomiting Genitourinary: Denies: Dysuria, Hematuria Endocrine: Denies: Heat/ Cold Intolerance, Polydipsia, Polyuria Hematologic/ Lymphatic: Denies: Easy Bruising, Easy Bleeding - Physical Exam Vital Signs Temp Pulse Resp BP 96.8 F L 80 16 164/71 H 06/23/20 10:13 06/23/20 10:13 06/23/20 10:13 06/23/20 10:13 General: Alert, Oriented x3, Cooperative, No apparent distress, Well developed, Well nourished HEENT: Atraumatic, PERRLA, EOMI, Normocephalic Oral: Moist Mucosa Neck: No JVD Lungs: Normal air movement Abdomen: Non-Distended Extremities: No clubbing, No cyanosis, No edema, No Calf Tenderness, - - A well-healed right above-knee amputation stump is noted. Addt'l Wound Findings: The ulceration in the right groin persists, but is smaller in size. Dimensions are documented elsewhere. There is a small amount of bioburden. There is no sign of infection or cellulitis. Skin: No rashes Wound Measurements and Assessment WC - Nurse 1 - General Ulcer Measurement Start: 06/09/20 09:45 Freq: Status: Active Protocol: Activity Type Activity Date Activity User E-Sign Co-Sign Detail Recorded Client Recorded Date Recorded By Document 06/23/20 10:13 MW [id number] 06/23/20 10:19 MW 06/23/20 10:13 Wound Center Nurse 1 [Ulcer Assessment] #9 R Groin -Combined with other wound No -Current Size (cm) - Length 0.5 -Current Size (cm) - Width 0.2 -Current Size (cm) - Depth 0.1 -Total Square Cm 0.10 -Photo Taken No -Epithelialization None Present -Tunneling No -Undermining/Tunneling No -Circular Undermining No -Exudate Amt None Present -Granulation Amt Small (1-33%) -Granulation Quality [place] -Slough/Fibrin Yes -Necrosis Amt Small (1-33%) -Necrotic Tissue Type Eschar -Structure Exposed N/A -Texture (Blanche-wound Skin Appearance) Assessed, Scarring -Moisture (Blanche-wound Skin Appearance No Abnormality, ) Assessed -Color (Blanche-wound Skin Appearance) No Abnormality, Assessed -Temperature (Blanche-wound Skin No Abnormality Appearance) (Pt Warm) -Tenderness on Palpation (Blanche-wound No Skin Appearance) -Ulcer Cleansing Rinsed/ Irrigated with Saline -Foul Odor after Cleansing No -Anesthetic Used 4% Lidocaine Solution [Edema Assessment] -Lower Limb Edema Present No WC - Nurse 2 - General Ulcer CM Notes Start: 06/09/20 09:45 Freq: Status: Active Protocol: Activity Type Activity Date Activity User E-Sign Co-Sign Detail Recorded Client Recorded Date Recorded By Document 06/23/20 11:36 PL [id number] 06/23/20 11:37 PL 06/23/20 11:36 Wound Center Nurse 2 [Procedure/Treatment] #9 R Groin -Time 10:38 -Correct Patient Yes -Correct Side, Site, Position Yes -Correct Procedure Yes -Procedure Performed Yes -Type of Procedure Debridement -Clinical Debridement Subcutaneous -Tissue Removed Subcutaneous -Post Debridement (cm) - Length 0.5 -Post Debridement (cm) - Width 0.2 -Post Debridement (cm) - Depth 0.1 -Total Square (Post) (cm) 0.10 -Area of Debridement (cm) - Length 0.5 -Area of Debridement (cm) - Width 0.2 -Total Square (Area) (cm) 0.10 -Tunneling No -Undermining/Tunneling No -Circular Undermining No -Wound/Ulcer Outcome Not Healed -Ulcer Cleansing Rinsed/ Irrigated with Saline -Foul Odor after Cleansing No -Bioengineered Tissue No -Bleeding Controlled with Pressure -Treatment Response Procedure Tolerated Well -Debridement - Subq, 1st 20sq cm Yes [See Physician Procedure note for Specifics] Pain Scale: 0-10 Numeric [Pain] -Is Patient Pain Free? Yes - Nurse 3 - General Ulcer D/C NN Start: 06/09/20 09:45 Freq: Status: Active Protocol: Activity Type Activity Date Activity User E-Sign Co-Sign Detail Recorded Client Recorded Date Recorded By Document 06/23/20 10:49 MW [id number] 06/23/20 10:50 MW 06/23/20 10:49 Wound Care Nurse 3 [Wound Dressing] #9 R Groin -Ulcer Cleansing Rinsed/ Irrigated with Saline -Foul Odor after Cleansing No -Negative Pressure Wound Therapy N/A -Other Dressing fibracol plus -Primary Dressing Covered/Secured Dry Gauze, with Secured with Tape [Post Procedure Tolerated] -Treatment Response Procedure Tolerated Well Pain Scale: 0-10 Numeric [Pain] -Is Patient Pain Free? Yes Teaching: Wound Center [Wound Center Education] (Items with an * have Printed Materials Available- Please identify what is given to patient under the Teaching materials given to patient and caregiver Section. Dressing Your Wound -Person Taught Patient -Teaching Method Discussion -Response to teaching Verbalize understanding WC - Visit Discharge [Visit Discharge Information] -Discharge Condition Stable -Ambulatory Status Ambulatory -Transportation Private Auto -Accompanied by self -Medication Reconcilliation completed No & provided to patient/care provider -Clinical Summary of Care Provided Yes Musculoskeletal: No Muscle Wasting Neurological: Cranial nerves II-XII grossly intact, Neuro grossly intact Psych/Mental Status: Normal Affect, Appropriate, Alert and oriented to time, place, person, mood and affect Debridement Note Post-Debridement Measurements/Treatment WC - Nurse 2 - General Ulcer CM Notes Start: 06/09/20 09:45 Freq: Status: Active Protocol: Activity Type Activity Date Activity User E-Sign Co-Sign Detail Recorded Client Recorded Date Recorded By Document 06/09/20 15:56 PL [id number] 06/09/20 15:57 PL Document 06/17/20 14:29 PL [id number] 06/17/20 14:30 PL Document 06/23/20 11:36 PL [id number] 06/23/20 11:37 PL 06/09/20 06/17/20 06/23/20 15:56 14:29 11:36 Wound Center Nurse 2 #9 R Groin -Time 10:08 13:34 10:38 -Correct Patient Yes Yes Yes -Correct Side, Site, Position Yes Yes Yes -Correct Procedure Yes Yes Yes -Procedure Performed Yes Yes Yes -Type of Procedure Debridement Debridement Debridement -Clinical Debridement Subcutaneous Subcutaneous Subcutaneous -Tissue Removed Subcutaneous Subcutaneous Subcutaneous -Post Debridement (cm) - Length 0.8 0.7 0.5 -Post Debridement (cm) - Width 0.3 0.4 0.2 -Post Debridement (cm) - Depth 0.2 0.1 0.1 -Total Square (Post) (cm) 0.24 0.28 0.10 -Area of Debridement (cm) - Length 0.8 0.7 0.5 -Area of Debridement (cm) - Width 0.3 0.4 0.2 -Total Square (Area) (cm) 0.24 0.28 0.10 -Tunneling No No No -Undermining/Tunneling No No No -Circular Undermining No No No -Wound/Ulcer Outcome Not Healed Not Healed Not Healed -Ulcer Cleansing Rinsed/ Rinsed/ Rinsed/ Irrigated with Irrigated with Irrigated with Saline Saline Saline -Foul Odor after Cleansing No No No -Bioengineered Tissue No No No -Bleeding Controlled with Pressure -Treatment Response Procedure Tolerated Well -Debridement - Subq, 1st 20sq cm Yes Yes Yes Pain Scale: 0-10 Numeric Is Patient Pain Free? Yes Yes Yes WC - Nurse 3 - General Ulcer D/C NN Start: 06/09/20 09:45 Freq: Status: Active Protocol: Activity Type Activity Date Activity User E-Sign Co-Sign Detail Recorded Client Recorded Date Recorded By Document 06/09/20 10:14 DL [id number] 06/09/20 10:16 DL Document 06/17/20 13:59 KR [id number] 06/17/20 13:59 KR Document 06/23/20 10:49 MW [id number] 06/23/20 10:50 MW 06/09/20 06/17/20 06/23/20 10:14 13:59 10:49 Wound Care Nurse 3 #9 R Groin -Ulcer Cleansing Rinsed/ Rinsed/ Rinsed/ Irrigated with Irrigated with Irrigated with Saline Saline Saline -Foul Odor after Cleansing No No No -Negative Pressure Wound Therapy N/A N/A -Other Dressing Fibricol fibracol plus -Primary Dressing Covered/Secured with Dry Gauze, Dry Gauze, Secured with Secured with Tape Tape Treatment Response Procedure Procedure Tolerated Well Tolerated Well Vital Signs Pulse Rate (60-100) 88 Pulse Location Monitor Blood Pressure (90/60-120/80) 153/82 H Blood Pressure Mean (mm Hg) 105 Pain Scale: 0-10 Numeric Is Patient Pain Free? Yes Yes Yes Teaching: Wound Center Dressing Your Wound -Person Taught Patient -Teaching Method Discussion -Response to teaching Verbalize understanding WC - Visit Discharge Discharge Condition Stable Stable Stable Ambulatory Status Ambulatory Ambulatory Ambulatory Transportation Private Auto Private Auto Private Auto Accompanied by self Medication Reconcilliation completed & No provided to patient/care provider Clinical Summary of Care Provided Yes Laterality: Right - Groin Type of Debridement: Excisional debridement Anesthesia Used: 5% Lidocaine Gel Depth: Down to and including healthy tissue, in the subcutaneous layer Percentage of wound debrided: 100 Instrument Used: 3mm curette Tissue Removed: Bioburden Severity: Fat Layer Exposed Amount of bleeding with debridement: Mild Bleeding Controlled with: Compression and gauze Patient tolerated procedure well Assessment/Plan Active Problems Overweight (BMI 25.0-29.9) (Chronic) History of uterine cancer (Chronic) History of melanoma (Chronic) Hyperlipidemia (Chronic) GERD (gastroesophageal reflux disease) (Chronic) Ulcer of right groin (Chronic) Obesity (BMI 30.0-34.9) (Chronic) Amputee, above knee (Chronic) Soft tissue radionecrosis (Chronic) soft tissue radiation injury (Chronic) Assessment: This is a 65-year-old female with a somewhat complicated and complex past medical history, documented above. In the 1970's, she was diagnosed with malignant melanoma of the right calf, with metastasis to lymph nodes in the right groin. She underwent excision of the melanoma with right groin lymphadenectomy. She was subsequently treated with a long series of radiation treatments to the right groin. At the time of her radiation treatment, it is suspected that the radiation techniques were somewhat primitive and early in their evolution, and it is quite likely that the patient received massive doses of radiation exposure, exceeding doses which would be considered appropriate today. As a result, the patient has developed soft tissue radiation injury, and has previously been treated at our wound care facility in the past on several occasions. She has received several series of approximately 90 hyperbaric oxygen therapy treatments, in 2011 and again more recently. In review of the patient's past history, each treatment course has been rather protracted in terms of healing. The patient has been referred for consultation at [facility] (Dr. Harding). Medical records related to the patient's visit at [facility] resulted in no significant new recommendations for treatment or management. Subsequently, the patient was referred to a plastic surgeon, Dr. Cassius Whitman. A number of options were discussed. Dr. Frausto proposed a rectus abdominis myocutaneous flap. As a prelude to flap reconstruction, the patient underwent a CT angiogram at [facility] on December 13, 2018. She met with Dr. Frausto later that same day. The patient relates that the nature of the surgical procedure, and the recovery phase, was described in detail, and anticipated to be quite challenging and lengthy. The patient considered her options, but subsequently decided to defer major surgical intervention. The patient has also met with the vascular surgeon at [facility], Dr. Ganga Tong. Once again, the patient was left with the impression that any surgery to reconstruct the area in the right groin could be fraught with complications and a lengthy recovery. The patient subsequently healed by conservative means, and was discharged in January 2020, only to present once again with spontaneous recurrence of the ulceration in the right groin. Plan: This is a 65-year-old female with a complex past medical history, as detailed above. She presented with a recurrence of her right groin ulceration, secondary to soft tissue radiation injury. Patient is well-known to our facility. We are to continue the use of Fibracol topically, which the patient will apply on a daily basis. Nutritional optimization has been recommended. She is to follow-up for reevaluation in 1 week. She is to keep the area clean and dry. Influenza vaccine was not administered today. The patient is not a smoker. She stands 5 feet 8 inches tall. She weighs 195 pounds. Her BMI is 29.6, which places her in an overweight category. Weight loss has been recommended. She is to collaborate with her primary care physician in this regard.
[2020-06-30 10:21] VITALS: BP 130/78; PULSE 81; RESP 16; TEMP 36.2; BMI 29.7
--- NOTE | 2020-06-30 13:39 | HP.PCM_ITS ---
(1) Overweight (BMI 25.0-29.9) Status: Chronic Code(s): E66.3 - Overweight (2) History of uterine cancer Status: Chronic Code(s): Z85.42 - Personal history of malignant neoplasm of other parts of uterus (3) History of melanoma Status: Chronic Code(s): Z85.820 - Personal history of malignant melanoma of skin (4) Hyperlipidemia Status: Chronic Code(s): E78.5 - Hyperlipidemia, unspecified (5) GERD (gastroesophageal reflux disease) Status: Chronic Code(s): K21.9 - Gastro-esophageal reflux disease without esophagitis (6) Ulcer of right groin Status: Chronic Qualifiers: Non-pressure ulcer stage: with fat layer exposed Code(s): L98.499 - Non-pressure chronic ulcer of skin of other sites with unspecified severity (7) Obesity (BMI 30.0-34.9) Status: Chronic Code(s): E66.9 - Obesity, unspecified (8) Amputee, above knee Status: Chronic Code(s): Z89.619 - Acquired absence of unspecified leg above knee (9) Soft tissue radionecrosis Status: Chronic Code(s): L59.8 - Other specified disorders of the skin and subcutaneous tissue related to radiation; Y84.2 - Radiological procedure and radiotherapy as the cause of abnormal reaction of the patient, or of later complication, without mention of misadventure at the time of the procedure (10) soft tissue radiation injury Status: Chronic History of Present Illness Date of Service: 06/30/20 Chief Complaint: 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 The patient underwent excision of her melanoma with lymphadenectomy in the right groin. She also underwent lengthy radiation treatments at the [facility] in [place], [place]. Melanoma recurred, and the patient was subsequently treated with monoclonal antibodies in 1984. 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 Treatment included local ulcer care and hyperbaric oxygen therapy. She underwent a total of nearly 90 treatments of hyperbaric oxygen therapy. It is known that she tolerated the therapies well, and derived significant benefit. She has no history of barotrauma to lungs, ears, etc. Her medical history reveals no evidence of contraindications to hyperbaric oxygen therapy. The patient was again treated for an ulceration in the right groin last year and earlier this year, related to soft tissue radiation injury. She subsequently healed in January 2020, and was discharged. Her treatment at that time included local wound care and a total of 90 sessions of hyperbaric oxygen therapy. A series of 10 EpiFix allografts were also used during her course of treatment. Each of the patient's prior courses of treatment in our facility have been protracted, with difficulties encountered in achieving complete healing. Patient presents at this time with a recurrence of her right groin ulceration, again thought to be secondary to soft tissue radiation injury. The ulceration recurred spontaneously on May 16, approximately 10 days ago, prompting the patient to seek treatment at our wound care facility. Since the recurrence of the ulceration, the patient has been using Mary topically. The patient indicates that her health history has not changed since she was last treated in our facility. She has had no recent fevers, sweats, or chills. Past Medical History Past Medical History: Chronic Problems Overweight (BMI 25.0-29.9) (Chronic) History of uterine cancer (Chronic) History of melanoma (Chronic) Hyperlipidemia (Chronic) GERD (gastroesophageal reflux disease) (Chronic) Ulcer of right groin (Chronic) Obesity (BMI 30.0-34.9) (Chronic) Amputee, above knee (Chronic) Soft tissue radionecrosis (Chronic) soft tissue radiation injury (Chronic) Surgical History: - - Patient has previously undergone total hysterectomy. She has undergone excision of melanoma from the right calf, with lymphadenectomy of the right groin in the 1969's. She subsequently required surgeries of the right thigh related to osteomyelitis, MRSA infection, and radiation injury to the right femoral artery. Ultimately, the patient required right above-knee amputation, performed in 2000. She also has a remote history of open reduction and internal fixation of a right ankle fracture. Allergies/Adverse Reactions: Allergies No Known Allergies Allergy (Verified 11/17/20 09:19) Home Medications: Ambulatory Orders Medication Instructions Recorded Famotidine 20 mg PO 06/20/17 Pravastatin [Pravachol] 20 mg PO DAILY 06/20/17 - Family History Maternal - - The patient's mother is 98 years of age and relatively healthy. The patient's father at age of 79 with a history of cardiomyopathy. Smoking Status: Former smoker Tobacco Use: Non-smoker Review of Systems Constitutional: Denies: Chills, Fever, Weight Change Eyes: Denies: Pain, Vision Change HEENT: Denies: Difficulty Hearing, Difficulty Swallowing, Sinus Congestion Cardiovascular: Denies: Chest Pain, Palpitations Respiratory: Denies: Cough, Shortness of Breath Gastrointestinal: Denies: Diarrhea, Nausea, Vomiting Genitourinary: Denies: Dysuria, Hematuria Endocrine: Denies: Heat/ Cold Intolerance, Polydipsia, Polyuria Hematologic/ Lymphatic: Denies: Easy Bruising, Easy Bleeding - Physical Exam Vital Signs Temp Pulse Resp BP 97.2 F L 81 16 130/78 H 06/30/20 10:21 06/30/20 10:21 06/30/20 10:21 06/30/20 10:21 General: Alert, Oriented x3, Cooperative, No apparent distress, Well developed, Well nourished HEENT: Atraumatic, PERRLA, EOMI, Normocephalic Oral: Moist Mucosa Neck: No JVD Lungs: Normal air movement Abdomen: Non-Distended Extremities: No clubbing, No cyanosis, No edema, No Calf Tenderness, - - A well- healed right above-knee amputation stump is noted. Addt'l Wound Findings: The wound persists in the patient's right groin. It is quite small in size. There is no sign of infection or cellulitis. There is a small amount of bioburden. Dimensions are documented elsewhere. Wound Measurements and Assessment WC - Nurse 1 - General Ulcer Measurement Start: 06/09/20 09:45 Freq: Status: Active Protocol: Activity Type Activity Date Activity User E-Sign Co-Sign Detail Recorded Client Recorded Date Recorded By Document 06/30/20 10:21 [facility] [id number] 06/30/20 10:30 [facility] 06/30/20 10:21 Wound Center Nurse 1 [Ulcer Assessment] #9 R Groin -Combined with other wound No -Current Size (cm) - Length 0.5 -Current Size (cm) - Width 0.2 -Current Size (cm) - Depth 0.3 -Total Square Cm 0.10 -Photo Taken No -Epithelialization None Present -Tunneling No -Undermining/Tunneling No -Circular Undermining No -Exudate Amt Small -Exudate Type Serous -Wound Margin Distinct, Outline Attached -Granulation Amt Large (67-100%) -Granulation Quality [place] -Slough/Fibrin No -Necrosis Amt Small (1-33%) -Necrotic Tissue Type Adherent Slough -Texture (Blanche-wound Skin Appearance) Assessed, Scarring -Moisture (Blanche-wound Skin Appearance Assessed,Dry/ ) Scaly -Color (Blanche-wound Skin Appearance) Assessed -Temperature (Blanche-wound Skin No Abnormality Appearance) (Pt Warm) -Tenderness on Palpation (Blanche-wound No Skin Appearance) -Ulcer Cleansing Rinsed/ Irrigated with Saline -Foul Odor after Cleansing No -Anesthetic Used 4% Lidocaine Solution WC - Nurse 3 - General Ulcer D/C NN Start: 06/09/20 09:45 Freq: Status: Active Protocol: Activity Type Activity Date Activity User E-Sign Co-Sign Detail Recorded Client Recorded Date Recorded By Document 06/30/20 11:09 [id number] 06/30/20 11:09 06/30/20 11:09 Wound Care Nurse 3 [Wound Dressing] -Ulcer Cleansing Rinsed/ Irrigated with Saline -Foul Odor after Cleansing No -Primary Dressing Covered/Secured Dry Gauze, with Secured with Tape Pain Scale: 0-10 Numeric [Pain] -Is Patient Pain Free? Yes - Visit Discharge [Visit Discharge Information] -Discharge Condition Stable -Ambulatory Status Ambulatory -Transportation Private Auto Musculoskeletal: No Muscle Wasting Neurological: Cranial nerves II-XII grossly intact, Neuro grossly intact Psych/Mental Status: Normal Affect, Appropriate, Alert and oriented to time, place, person, mood and affect Debridement Note Post-Debridement Measurements/Treatment WC - Nurse 2 - General Ulcer CM Notes Start: 06/09/20 09:45 Freq: Status: Active Protocol: Activity Type Activity Date Activity User E-Sign Co-Sign Detail Recorded Client Recorded Date Recorded By Document 06/09/20 15:56 PL [id number] 06/09/20 15:57 PL Document 06/17/20 14:29 PL [id number] 06/17/20 14:30 PL Document 06/23/20 11:36 PL [id number] 06/23/20 11:37 PL 06/09/20 06/17/20 06/23/20 15:56 14:29 11:36 Wound Center Nurse 2 #9 R Groin -Time 10:08 13:34 10:38 -Correct Patient Yes Yes Yes -Correct Side, Site, Position Yes Yes Yes -Correct Procedure Yes Yes Yes -Procedure Performed Yes Yes Yes -Type of Procedure Debridement Debridement Debridement -Clinical Debridement Subcutaneous Subcutaneous Subcutaneous -Tissue Removed Subcutaneous Subcutaneous Subcutaneous -Post Debridement (cm) - Length 0.8 0.7 0.5 -Post Debridement (cm) - Width 0.3 0.4 0.2 -Post Debridement (cm) - Depth 0.2 0.1 0.1 -Total Square (Post) (cm) 0.24 0.28 0.10 -Area of Debridement (cm) - Length 0.8 0.7 0.5 -Area of Debridement (cm) - Width 0.3 0.4 0.2 -Total Square (Area) (cm) 0.24 0.28 0.10 -Tunneling No No No -Undermining/Tunneling No No No -Circular Undermining No No No -Wound/Ulcer Outcome Not Healed Not Healed Not Healed -Ulcer Cleansing Rinsed/ Rinsed/ Rinsed/ Irrigated with Irrigated with Irrigated with Saline Saline Saline -Foul Odor after Cleansing No No No -Bioengineered Tissue No No No -Bleeding Controlled with Pressure -Treatment Response Procedure Tolerated Well -Debridement - Subq, 1st 20sq cm Yes Yes Yes Pain Scale: 0-10 Numeric Is Patient Pain Free? Yes Yes Yes WC - Nurse 3 - General Ulcer D/C NN Start: 06/09/20 09:45 Freq: Status: Active Protocol: Activity Type Activity Date Activity User E-Sign Co-Sign Detail Recorded Client Recorded Date Recorded By Document 06/09/20 10:14 DL [id number] 06/09/20 10:16 DL Document 06/17/20 13:59 KR [id number] 06/17/20 13:59 KR Document 06/23/20 10:49 MW [id number] 06/23/20 10:50 MW Document 06/30/20 11:09 KR [id number] 06/30/20 11:09 KR 06/09/20 06/17/20 06/23/20 10:14 13:59 10:49 Wound Care Nurse 3 #9 R Groin -Ulcer Cleansing Rinsed/ Rinsed/ Rinsed/ Irrigated with Irrigated with Irrigated with Saline Saline Saline -Foul Odor after Cleansing No No No -Negative Pressure Wound Therapy N/A N/A -Other Dressing Fibricol fibracol plus -Primary Dressing Covered/Secured with Dry Gauze, Dry Gauze, Secured with Secured with Tape Tape Treatment Response Procedure Procedure Tolerated Well Tolerated Well Vital Signs Pulse Rate (60-100) 88 Pulse Location Monitor Blood Pressure (90/60-120/80) 153/82 H Blood Pressure Mean (mm Hg) 105 Pain Scale: 0-10 Numeric Is Patient Pain Free? Yes Yes Yes Teaching: Wound Center Dressing Your Wound -Person Taught Patient -Teaching Method Discussion -Response to teaching Verbalize understanding WC - Visit Discharge Discharge Condition Stable Stable Stable Ambulatory Status Ambulatory Ambulatory Ambulatory Transportation Private Auto Private Auto Private Auto Accompanied by self Medication Reconcilliation completed & No provided to patient/care provider Clinical Summary of Care Provided Yes 06/30/20 11:09 Wound Care Nurse 3 #9 R Groin -Ulcer Cleansing Rinsed/ Irrigated with Saline -Foul Odor after Cleansing No -Negative Pressure Wound Therapy -Other Dressing -Primary Dressing Covered/Secured with Dry Gauze, Secured with Tape Treatment Response Vital Signs Pulse Rate (60-100) Pulse Location Blood Pressure (90/60-120/80) Blood Pressure Mean (mm Hg) Pain Scale: 0-10 Numeric Is Patient Pain Free? Yes Teaching: Wound Center Dressing Your Wound -Person Taught -Teaching Method -Response to teaching WC - Visit Discharge Discharge Condition Stable Ambulatory Status Ambulatory Transportation Private Auto Accompanied by Medication Reconcilliation completed & provided to patient/care provider Clinical Summary of Care Provided Laterality: Right - Groin Type of Debridement: Excisional debridement Anesthesia Used: 5% Lidocaine Gel Depth: Down to and including healthy tissue, in the subcutaneous layer Percentage of wound debrided: 100 Instrument Used: 3mm curette Tissue Removed: Bioburden Severity: Fat Layer Exposed Amount of bleeding with debridement: Mild Bleeding Controlled with: Compression and gauze Patient tolerated procedure well Assessment/Plan Active Problems Overweight (BMI 25.0-29.9) (Chronic) History of uterine cancer (Chronic) History of melanoma (Chronic) Hyperlipidemia (Chronic) GERD (gastroesophageal reflux disease) (Chronic) Ulcer of right groin (Chronic) Obesity (BMI 30.0-34.9) (Chronic) Amputee, above knee (Chronic) Soft tissue radionecrosis (Chronic) soft tissue radiation injury (Chronic) Assessment: This is a 65-year-old female with a somewhat complicated and complex past medical history, documented above. In the 1969's, she was diagnosed with malignant melanoma of the right calf, with metastasis to lymph nodes in the right groin. She underwent excision of the melanoma with right groin lymphadenectomy. She was subsequently treated with a long series of radiation treatments to the right groin. At the time of her radiation treatment, it is suspected that the radiation techniques were somewhat primitive and early in their evolution, and it is quite likely that the patient received massive doses of radiation exposure, exceeding doses which would be considered appropriate today. As a result, the patient has developed soft tissue radiation injury, and has previously been treated at our wound care facility in the past on several occasions. She has received several series of approximately 90 hyperbaric oxygen therapy treatments, in 2011 and again more recently. In review of the patient's past history, each treatment course has been rather protracted in terms of healing. The patient has been referred for consultation at [facility] (Dr. Harding). Medical records related to the patient's visit at [facility] resulted in no significant new recommendations for treatment or management. Subsequently, the patient was referred to a plastic surgeon, Dr. Cassius Whitman. A number of options were discussed. Dr. Frausto proposed a rectus abdominis myocutaneous flap. As a prelude to flap reconstruction, the patient underwent a CT angiogram at [facility] on December 13, 2018. She met with Dr. Frausto later that same day. The patient relates that the nature of the surgical procedure, and the recovery phase, was described in detail, and anticipated to be quite challenging and lengthy. The patient considered her options, but subsequently decided to defer major surgical intervention. The patient has also met with the vascular surgeon at [facility], Dr. Ganga Tong. Once again, the patient was left with the impression that any surgery to reconstruct the area in the right groin could be fraught with complications and a lengthy recovery. The patient subsequently healed by conservative means, and was discharged in January 2020, only to present once again with spontaneous recurrence of the ulceration in the right groin. Plan: This is a 65-year-old female with a complex past medical history, as detailed above. She presented with a recurrence of her right groin ulceration, secondary to soft tissue radiation injury. Patient is well-known to our facility. We are to continue the use of Fibracol topically, which the patient will apply on a daily basis. Nutritional optimization has been recommended. She is to follow-up for reevaluation in 2 weeks. She is to keep the area clean and dry. Influenza vaccine was not administered today. The patient is not a smoker. She stands 5 feet 8 inches tall. She weighs 195 pounds. Her BMI is 29.6, which places her in an overweight category. Weight loss has been recommended. She is to collaborate with her primary care physician in this r raulitoard.
[2020-07-07 10:21] VITALS: BP 148/76; PULSE 91; TEMP 35.9; BMI 29.7
--- NOTE | 2020-07-07 10:39 | HP.PCM_ITS ---
(1) Overweight (BMI 25.0-29.9) Status: Chronic Code(s): E66.3 - Overweight (2) History of uterine cancer Status: Chronic Code(s): Z85.42 - Personal history of malignant neoplasm of other parts of uterus (3) History of melanoma Status: Chronic Code(s): Z85.820 - Personal history of malignant melanoma of skin (4) Hyperlipidemia Status: Chronic Code(s): E78.5 - Hyperlipidemia, unspecified (5) GERD (gastroesophageal reflux disease) Status: Chronic Code(s): K21.9 - Gastro-esophageal reflux disease without esophagitis (6) Ulcer of right groin Status: Chronic Qualifiers: Non-pressure ulcer stage: with fat layer exposed Code(s): L98.499 - Non-pressure chronic ulcer of skin of other sites with unspecified severity (7) Obesity (BMI 30.0-34.9) Status: Chronic Code(s): E66.9 - Obesity, unspecified (8) Amputee, above knee Status: Chronic Code(s): Z89.619 - Acquired absence of unspecified leg above knee (9) Soft tissue radionecrosis Status: Chronic Code(s): L59.8 - Other specified disorders of the skin and subcutaneous tissue related to radiation; Y84.2 - Radiological procedure and radiotherapy as the cause of abnormal reaction of the patient, or of later complication, without mention of misadventure at the time of the procedure (10) soft tissue radiation injury Status: Chronic History of Present Illness Date of Service: 07/07/20 Chief Complaint: 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 The patient underwent excision of her melanoma with lymphadenectomy in the right groin. She also underwent lengthy radiation treatments at the [facility] in [place], [place]. Melanoma recurred, and the patient was subsequently treated with monoclonal antibodies in 1984. 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 Treatment included local ulcer care and hyperbaric oxygen therapy. She underwent a total of nearly 90 treatments of hyperbaric oxygen therapy. It is known that she tolerated the therapies well, and derived significant benefit. She has no history of barotrauma to lungs, ears, etc. Her medical history reveals no evidence of contraindications to hyperbaric oxygen therapy. The patient was again treated for an ulceration in the right groin last year and earlier this year, related to soft tissue radiation injury. She subsequently healed in January 2020, and was discharged. Her treatment at that time included local wound care and a total of 90 sessions of hyperbaric oxygen therapy. A series of 10 EpiFix allografts were also used during her course of treatment. Each of the patient's prior courses of treatment in our facility have been protracted, with difficulties encountered in achieving complete healing. Patient presents at this time with a recurrence of her right groin ulceration, again thought to be secondary to soft tissue radiation injury. The ulceration recurred spontaneously on May 16, approximately 10 days ago, prompting the patient to seek treatment at our wound care facility. Since the recurrence of the ulceration, the patient has been using Mary topically. The patient indicates that her health history has not changed since she was last treated in our facility. She has had no recent fevers, sweats, or chills. Past Medical History Past Medical History: Chronic Problems Overweight (BMI 25.0-29.9) (Chronic) History of uterine cancer (Chronic) History of melanoma (Chronic) Hyperlipidemia (Chronic) GERD (gastroesophageal reflux disease) (Chronic) Ulcer of right groin (Chronic) Obesity (BMI 30.0-34.9) (Chronic) Amputee, above knee (Chronic) Soft tissue radionecrosis (Chronic) soft tissue radiation injury (Chronic) Surgical History: - - Patient has previously undergone total hysterectomy. She has undergone excision of melanoma from the right calf, with lymphadenectomy of the right groin in the 1969's. She subsequently required surgeries of the right thigh related to osteomyelitis, MRSA infection, and radiation injury to the right femoral artery. Ultimately, the patient required right above-knee amputation, performed in 2000. She also has a remote history of open reduction and internal fixation of a right ankle fracture. Allergies/Adverse Reactions: Allergies No Known Allergies Allergy (Verified 11/17/20 09:19) Home Medications: Ambulatory Orders Medication Instructions Recorded Famotidine 20 mg PO 06/20/17 Pravastatin [Pravachol] 20 mg PO DAILY 06/20/17 - Family History Maternal - - The patient's mother is 98 years of age and relatively healthy. The patient's father at age of 79 with a history of cardiomyopathy. Smoking Status: Former smoker Tobacco Use: Non-smoker Review of Systems Constitutional: Denies: Chills, Fever, Weight Change Eyes: Denies: Pain, Vision Change HEENT: Denies: Difficulty Hearing, Difficulty Swallowing, Sinus Congestion Cardiovascular: Denies: Chest Pain, Palpitations Respiratory: Denies: Cough, Shortness of Breath Gastrointestinal: Denies: Diarrhea, Nausea, Vomiting Genitourinary: Denies: Dysuria, Hematuria Endocrine: Denies: Heat/ Cold Intolerance, Polydipsia, Polyuria Hematologic/ Lymphatic: Denies: Easy Bruising, Easy Bleeding - Physical Exam Vital Signs Temp Pulse Resp BP 96.6 F L 91 16 148/76 H 07/07/20 10:21 07/07/20 10:21 06/30/20 10:21 07/07/20 10:21 General: Alert, Oriented x3, Cooperative, No apparent distress, Well developed, Well nourished HEENT: Atraumatic, PERRLA, EOMI, Normocephalic Oral: Moist Mucosa Neck: No JVD Lungs: Normal air movement Abdomen: Non-Distended Extremities: No clubbing, No cyanosis, No edema, No Calf Tenderness, - - A well- healed right above-knee amputation stump is noted. Addt'l Wound Findings: The ulceration in the right groin persists. It is little changed in size or appearance. Dimensions are documented elsewhere. There is no sign of infection or cellulitis. There is a small amount of bioburden. Skin: No rashes Wound Measurements and Assessment WC - Nurse 1 - General Ulcer Measurement Start: 06/09/20 09:45 Freq: Status: Active Protocol: Activity Type Activity Date Activity User E-Sign Co-Sign Detail Recorded Client Recorded Date Recorded By Document 07/07/20 10:21 SONNY [id number] 07/07/20 10:29 SONNY 07/07/20 10:21 Wound Center Nurse 1 [Ulcer Assessment] #9 R Groin -Current Size (cm) - Length 0.4 -Current Size (cm) - Width 0.4 -Current Size (cm) - Depth 0.1 -Total Square Cm 0.16 -Exudate Amt None Present -Wound Margin Distinct, Outline Attached -Granulation Amt Small (1-33%) -Granulation Quality [place] -Necrosis Amt Small (1-33%) -Necrotic Tissue Type Adherent Slough -Texture (Blanche-wound Skin Appearance) Assessed, Scarring -Moisture (Blanche-wound Skin Appearance No Abnormality, ) Assessed -Color (Blanche-wound Skin Appearance) No Abnormality, Assessed -Temperature (Blanche-wound Skin No Abnormality Appearance) (Pt Warm) -Tenderness on Palpation (Blanche-wound No Skin Appearance) -Ulcer Cleansing Rinsed/ Irrigated with Saline -Foul Odor after Cleansing No -Anesthetic Used 4% Lidocaine Solution Musculoskeletal: No Muscle Wasting Neurological: Cranial nerves II-XII grossly intact, Neuro grossly intact Psych/Mental Status: Normal Affect, Appropriate, Alert and oriented to time, place, person, mood and affect Debridement Note Post-Debridement Measurements/Treatment WC - Nurse 2 - General Ulcer CM Notes Start: 06/09/20 09:45 Freq: Status: Active Protocol: Activity Type Activity Date Activity User E-Sign Co-Sign Detail Recorded Client Recorded Date Recorded By Document 06/09/20 15:56 PL [id number] 06/09/20 15:57 PL Document 06/17/20 14:29 PL [id number] 06/17/20 14:30 PL Document 06/23/20 11:36 PL [id number] 06/23/20 11:37 PL 06/09/20 06/17/20 06/23/20 15:56 14:29 11:36 Wound Center Nurse 2 #9 R Groin -Time 10:08 13:34 10:38 -Correct Patient Yes Yes Yes -Correct Side, Site, Position Yes Yes Yes -Correct Procedure Yes Yes Yes -Procedure Performed Yes Yes Yes -Type of Procedure Debridement Debridement Debridement -Clinical Debridement Subcutaneous Subcutaneous Subcutaneous -Tissue Removed Subcutaneous Subcutaneous Subcutaneous -Post Debridement (cm) - Length 0.8 0.7 0.5 -Post Debridement (cm) - Width 0.3 0.4 0.2 -Post Debridement (cm) - Depth 0.2 0.1 0.1 -Total Square (Post) (cm) 0.24 0.28 0.10 -Area of Debridement (cm) - Length 0.8 0.7 0.5 -Area of Debridement (cm) - Width 0.3 0.4 0.2 -Total Square (Area) (cm) 0.24 0.28 0.10 -Tunneling No No No -Undermining/Tunneling No No No -Circular Undermining No No No -Wound/Ulcer Outcome Not Healed Not Healed Not Healed -Ulcer Cleansing Rinsed/ Rinsed/ Rinsed/ Irrigated with Irrigated with Irrigated with Saline Saline Saline -Foul Odor after Cleansing No No No -Bioengineered Tissue No No No -Bleeding Controlled with Pressure -Treatment Response Procedure Tolerated Well -Debridement - Subq, 1st 20sq cm Yes Yes Yes Pain Scale: 0-10 Numeric Is Patient Pain Free? Yes Yes Yes - Nurse 3 - General Ulcer D/C NN Start: 06/09/20 09:45 Freq: Status: Active Protocol: Activity Type Activity Date Activity User E-Sign Co-Sign Detail Recorded Client Recorded Date Recorded By Document 06/09/20 10:14 DL [id number] 06/09/20 10:16 DL Document 06/17/20 13:59 KR [id number] 06/17/20 13:59 KR Document 06/23/20 10:49 MW [id number] 06/23/20 10:50 MW Document 06/30/20 11:09 KR [id number] 06/30/20 11:09 KR 06/09/20 06/17/20 06/23/20 10:14 13:59 10:49 Wound Care Nurse 3 #9 R Groin -Ulcer Cleansing Rinsed/ Rinsed/ Rinsed/ Irrigated with Irrigated with Irrigated with Saline Saline Saline -Foul Odor after Cleansing No No No -Negative Pressure Wound Therapy N/A N/A -Other Dressing Fibricol fibracol plus -Primary Dressing Covered/Secured with Dry Gauze, Dry Gauze, Secured with Secured with Tape Tape Treatment Response Procedure Procedure Tolerated Well Tolerated Well Vital Signs Pulse Rate (60-100) 88 Pulse Location Monitor Blood Pressure (90/60-120/80) 153/82 H Blood Pressure Mean (mm Hg) 105 Pain Scale: 0-10 Numeric Is Patient Pain Free? Yes Yes Yes Teaching: Wound Center Dressing Your Wound -Person Taught Patient -Teaching Method Discussion -Response to teaching Verbalize understanding WC - Visit Discharge Discharge Condition Stable Stable Stable Ambulatory Status Ambulatory Ambulatory Ambulatory Transportation Private Auto Private Auto Private Auto Accompanied by self Medication Reconcilliation completed & No provided to patient/care provider Clinical Summary of Care Provided Yes 06/30/20 11:09 Wound Care Nurse 3 #9 R Groin -Ulcer Cleansing Rinsed/ Irrigated with Saline -Foul Odor after Cleansing No -Negative Pressure Wound Therapy -Other Dressing -Primary Dressing Covered/Secured with Dry Gauze, Secured with Tape Treatment Response Vital Signs Pulse Rate (60-100) Pulse Location Blood Pressure (90/60-120/80) Blood Pressure Mean (mm Hg) Pain Scale: 0-10 Numeric Is Patient Pain Free? Yes Teaching: Wound Center Dressing Your Wound -Person Taught -Teaching Method -Response to teaching WC - Visit Discharge Discharge Condition Stable Ambulatory Status Ambulatory Transportation Private Auto Accompanied by Medication Reconcilliation completed & provided to patient/care provider Clinical Summary of Care Provided Laterality: Right - Groin Type of Debridement: Excisional debridement Anesthesia Used: 5% Lidocaine Gel Depth: Down to and including healthy tissue, in the subcutaneous layer Percentage of wound debrided: 100 Instrument Used: 3mm curette Tissue Removed: Bioburden Severity: Fat Layer Exposed Amount of bleeding with debridement: Mild Bleeding Controlled with: Compression and gauze Patient tolerated procedure well Assessment/Plan Active Problems Overweight (BMI 25.0-29.9) (Chronic) History of uterine cancer (Chronic) History of melanoma (Chronic) Hyperlipidemia (Chronic) GERD (gastroesophageal reflux disease) (Chronic) Ulcer of right groin (Chronic) Obesity (BMI 30.0-34.9) (Chronic) Amputee, above knee (Chronic) Soft tissue radionecrosis (Chronic) soft tissue radiation injury (Chronic) Assessment: This is a 65-year-old female with a somewhat complicated and complex past medical history, documented above. In the 1970's, she was diagnosed with malignant melanoma of the right calf, with metastasis to lymph nodes in the right groin. She underwent excision of the melanoma with right groin lymphadenectomy. She was subsequently treated with a long series of radiation treatments to the right groin. At the time of her radiation treatment, it is suspected that the radiation techniques were somewhat primitive and early in their evolution, and it is quite likely that the patient received massive doses of radiation exposure, exceeding doses which would be considered appropriate today. As a result, the patient has developed soft tissue radiation injury, and has previously been treated at our wound care facility in the past on several occasions. She has received several series of approximately 90 hyperbaric oxygen therapy treatments, in 2011 and again more recently. In review of the patient's past history, each treatment course has been rather protracted in terms of healing. The patient has been referred for consultation at [facility] (Dr. Harding). Medical records related to the patient's visit at [facility] resulted in no significant new recommendations for treatment or management. Subsequently, the patient was referred to a plastic surgeon, Dr. Cassius Whitman. A number of options were discussed. Dr. Frausto proposed a rectus abdominis myocutaneous flap. As a prelude to flap reconstruction, the patient underwent a CT angiogram at [facility] on December 13, 2018. She met with Dr. Frausto later that same day. The patient relates that the nature of the surgical procedure, and the recovery phase, was described in detail, and anticipated to be quite challenging and lengthy. The patient considered her options, but subsequently decided to defer major surgical intervention. The patient has also met with the vascular surgeon at [facility], Dr. Ganga Tong. Once again, the patient was left with the impression that any surgery to reconstruct the area in the right groin could be fraught with complications and a lengthy recovery. The patient subsequently healed by conservative means, and was discharged in January 2020, only to present once again with spontaneous recurrence of the ulceration in the right groin. Plan: This is a 65-year-old female with a complex past medical history, as detailed above. She presented with a recurrence of her right groin ulceration, secondary to soft tissue radiation injury. Patient is well-known to our facility. We are to continue the use of Fibracol topically, which the patient will apply on a daily basis. Nutritional optimization has been recommended. She is to follow-up for reevaluation in 2 weeks. She is to keep the area clean and dry. Influenza vaccine was not administered today. The patient is not a smoker. She stands 5 feet 8 inches tall. She weighs 195 pounds. Her BMI is 29.6, which places her in an overweight category. Weight loss has been recommended. She is to collaborate with her primary care physician in this regard.
== END 2020-07-09 23:59 ==
LOC: WC 10:00
PROVIDERS: Family Provider Family Medicine; PCP Family Medicine; Referring Provider Surgery; Visit Provider Surgery
DX: L59.8 Other specified disorders of the skin and subcutaneous tissue related to radiation (principal); E66.9 Obesity, unspecified; K21.9 Gastro-esophageal reflux disease without esophagitis; L97.112 Non-pressure chronic ulcer of right thigh with fat layer exposed; E78.5 Hyperlipidemia, unspecified; Z85.820 Personal history of malignant melanoma of skin; Y84.2 Radiological procedure and radiotherapy as the cause of abnormal reaction of the patient, or of later complication, without mention of misadventure at the time of the procedure; Z86.14 Personal history of Methicillin resistant Staphylococcus aureus infection; Z89.611 Acquired absence of right leg above knee; Z87.891 Personal history of nicotine dependence
CPT/HCPCS: 11042

== ENCOUNTER 2020-08-04 10:00 | Outpatient (RCR) | payer MEDICARE, OTHER, SELFPAY ==
[2020-07-10 00:09] VITALS: BP 148/76; PULSE 91; RESP 16; TEMP 35.9
[2020-07-14 10:18] VITALS: BP 141/81; PULSE 87; RESP 18; TEMP 36.6; BMI 29.7
--- NOTE | 2020-07-14 10:40 | PCM.WC.HP ---
(1) Overweight (BMI 25.0-29.9) Status: Chronic Code(s): E66.3 - Overweight (2) History of uterine cancer Status: Chronic Code(s): Z85.42 - Personal history of malignant neoplasm of other parts of uterus (3) History of melanoma Status: Chronic Code(s): Z85.820 - Personal history of malignant melanoma of skin (4) Hyperlipidemia Status: Chronic Code(s): E78.5 - Hyperlipidemia, unspecified (5) GERD (gastroesophageal reflux disease) Status: Chronic Code(s): K21.9 - Gastro-esophageal reflux disease without esophagitis (6) Ulcer of right groin Status: Chronic Qualifiers: Non-pressure ulcer stage: with fat layer exposed Code(s): L98.499 - Non-pressure chronic ulcer of skin of other sites with unspecified severity (7) Obesity (BMI 30.0-34.9) Status: Chronic Code(s): E66.9 - Obesity, unspecified (8) Amputee, above knee Status: Chronic Code(s): Z89.619 - Acquired absence of unspecified leg above knee (9) Soft tissue radionecrosis Status: Chronic Code(s): L59.8 - Other specified disorders of the skin and subcutaneous tissue related to radiation; Y84.2 - Radiological procedure and radiotherapy as the cause of abnormal reaction of the patient, or of later complication, without mention of misadventure at the time of the procedure (10) soft tissue radiation injury Status: Chronic History of Present Illness Date of Service: 07/14/20 Chief Complaint: 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 The patient underwent excision of her melanoma with lymphadenectomy in the right groin. She also underwent lengthy radiation treatments at the [facility] in [place], [place]. Melanoma recurred, and the patient was subsequently treated with monoclonal antibodies in 1984. 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 Treatment included local ulcer care and hyperbaric oxygen therapy. She underwent a total of nearly 90 treatments of hyperbaric oxygen therapy. It is known that she tolerated the therapies well, and derived significant benefit. She has no history of barotrauma to lungs, ears, etc. Her medical history reveals no evidence of contraindications to hyperbaric oxygen therapy. The patient was again treated for an ulceration in the right groin last year and earlier this year, related to soft tissue radiation injury. She subsequently healed in January 2020, and was discharged. Her treatment at that time included local wound care and a total of 90 sessions of hyperbaric oxygen therapy. A series of 10 EpiFix allografts were also used during her course of treatment. Each of the patient's prior courses of treatment in our facility have been protracted, with difficulties encountered in achieving complete healing. Patient presents at this time with a recurrence of her right groin ulceration, again thought to be secondary to soft tissue radiation injury. The ulceration recurred spontaneously on May 16, approximately 10 days ago, prompting the patient to seek treatment at our wound care facility. Since the recurrence of the ulceration, the patient has been using Mary topically. The patient indicates that her health history has not changed since she was last treated in our facility. She has had no recent fevers, sweats, or chills. Past Medical History Past Medical History: Chronic Problems Overweight (BMI 25.0-29.9) (Chronic) History of uterine cancer (Chronic) History of melanoma (Chronic) Hyperlipidemia (Chronic) GERD (gastroesophageal reflux disease) (Chronic) Ulcer of right groin (Chronic) Obesity (BMI 30.0-34.9) (Chronic) Amputee, above knee (Chronic) Soft tissue radionecrosis (Chronic) soft tissue radiation injury (Chronic) Surgical History: - - Patient has previously undergone total hysterectomy. She has undergone excision of melanoma from the right calf, with lymphadenectomy of the right groin in the 1969's. She subsequently required surgeries of the right thigh related to osteomyelitis, MRSA infection, and radiation injury to the right femoral artery. Ultimately, the patient required right above-knee amputation, performed in 2000. She also has a remote history of open reduction and internal fixation of a right ankle fracture. Allergies/Adverse Reactions: Allergies No Known Allergies Allergy (Verified 11/17/20 09:19) Home Medications: Ambulatory Orders Medication Instructions Recorded Famotidine 20 mg PO 06/20/17 Pravastatin [Pravachol] 20 mg PO DAILY 06/20/17 - Family History Maternal - - The patient's mother is 98 years of age and relatively healthy. The patient's father at age of 79 with a history of cardiomyopathy. Smoking Status: Former smoker Tobacco Use: Non-smoker Review of Systems Constitutional: Denies: Chills, Fever, Weight Change Eyes: Denies: Pain, Vision Change HEENT: Denies: Difficulty Hearing, Difficulty Swallowing, Sinus Congestion Cardiovascular: Denies: Chest Pain, Palpitations Respiratory: Denies: Cough, Shortness of Breath Gastrointestinal: Denies: Diarrhea, Nausea, Vomiting Genitourinary: Denies: Dysuria, Hematuria Endocrine: Denies: Heat/ Cold Intolerance, Polydipsia, Polyuria Hematologic/ Lymphatic: Denies: Easy Bruising, Easy Bleeding - Physical Exam Vital Signs Temp Pulse Resp BP 97.8 F 87 18 141/81 H 07/14/20 10:18 07/14/20 10:18 07/14/20 10:18 07/14/20 10:18 General: Alert, Oriented x3, Cooperative, No apparent distress, Well developed, Well nourished HEENT: Atraumatic, PERRLA, EOMI, Normocephalic Oral: Moist Mucosa Neck: No JVD Lungs: Normal air movement Abdomen: Non-Distended Extremities: No clubbing, No cyanosis, No edema, No Calf Tenderness, - - A well-healed, right above-knee amputation stump is noted. Addt'l Wound Findings: The ulceration in the right groin persists. However, it is much smaller in size. Dimensions are documented elsewhere. There is no sign of infection or cellulitis. There is a small amount of bioburden. It is currently quite small. Skin: No rashes Wound Measurements and Assessment WC - Nurse 1 - General Ulcer Measurement Start: 07/14/20 10:18 Freq: Status: Active Protocol: Activity Type Activity Date Activity User E-Sign Co-Sign Detail Recorded Client Recorded Date Recorded By Document 07/14/20 10:18 PL [id number] 07/14/20 10:22 PL 07/14/20 10:18 Wound Center Nurse 1 [Ulcer Assessment] #9 R Groin -Combined with other wound No -Current Size (cm) - Length 0.2 -Current Size (cm) - Width 0.2 -Current Size (cm) - Depth 0.2 -Total Square Cm 0.04 -Photo Taken No -Epithelialization None Present -Tunneling No -Undermining/Tunneling No -Circular Undermining No -Exudate Amt None Present -Granulation Amt Large (67-100%) -Granulation Quality [place],Red -Slough/Fibrin Yes -Necrosis Amt Small (1-33%) -Necrotic Tissue Type Adherent Slough -Texture (Blanche-wound Skin Appearance) No Abnormality -Moisture (Blanche-wound Skin Appearance No Abnormality ) -Color (Blanche-wound Skin Appearance) No Abnormality -Ulcer Cleansing Rinsed/ Irrigated with Saline -Foul Odor after Cleansing No -Anesthetic Used 5% Lidocaine Gel - Nurse 3 - General Ulcer D/C NN Start: 07/14/20 10:18 Freq: Status: Active Protocol: Activity Type Activity Date Activity User E-Sign Co-Sign Detail Recorded Client Recorded Date Recorded By Document 07/14/20 10:35 [facility] [id number] 07/14/20 10:35 [facility] 07/14/20 10:35 Wound Care Nurse 3 [Wound Dressing] -Ulcer Cleansing Rinsed/ Irrigated with Saline -Foul Odor after Cleansing No -Primary Dressing Applied Fibracol Plus 4x4 -Primary Dressing Covered/Secured Dry Gauze, with Secured with Tape -Fibracol Plus 4x4 1 [Post Procedure Tolerated] -Treatment Response Procedure Tolerated Well Pain Scale: 0-10 Numeric [Pain] -Is Patient Pain Free? Yes - Visit Discharge [Visit Discharge Information] -Discharge Condition Stable -Ambulatory Status Ambulatory, Crutches -Transportation Private Auto Musculoskeletal: No Muscle Wasting Neurological: Cranial nerves II-XII grossly intact, Neuro grossly intact Psych/Mental Status: Normal Affect, Appropriate, Alert and oriented to time, place, person, mood and affect Debridement Note Post-Debridement Measurements/Treatment - Nurse 3 - General Ulcer D/C NN Start: 07/14/20 10:18 Freq: Status: Active Protocol: Activity Type Activity Date Activity User E-Sign Co-Sign Detail Recorded Client Recorded Date Recorded By Document 07/14/20 10:35 [employer] [id number] 07/14/20 10:35 [facility] 07/14/20 10:35 Wound Care Nurse 3 #9 R Groin -Ulcer Cleansing Rinsed/ Irrigated with Saline -Foul Odor after Cleansing No -Primary Dressing Applied Fibracol Plus 4x4 -Primary Dressing Covered/Secured with Dry Gauze, Secured with Tape -Fibracol Plus 4x4 1 Treatment Response Procedure Tolerated Well Pain Scale: 0-10 Numeric Is Patient Pain Free? Yes WC - Visit Discharge Discharge Condition Stable Ambulatory Status Ambulatory, Crutches Transportation Private Auto Laterality: Right - Groin Type of Debridement: Excisional debridement Anesthesia Used: 5% Lidocaine Gel Depth: Down to and including healthy tissue, in the subcutaneous layer Percentage of wound debrided: 100 Instrument Used: 3mm curette Tissue Removed: Bioburden Severity: Fat Layer Exposed Amount of bleeding with debridement: Mild Bleeding Controlled with: Compression and gauze Patient tolerated procedure well Assessment/Plan Assessment: This is a 65-year-old female with a somewhat complicated and complex past medical history, documented above. In the 1970's, she was diagnosed with malignant melanoma of the right calf, with metastasis to lymph nodes in the right groin. She underwent excision of the melanoma with right groin lymphadenectomy. She was subsequently treated with a long series of radiation treatments to the right groin. At the time of her radiation treatment, it is suspected that the radiation techniques were somewhat primitive and early in their evolution, and it is quite likely that the patient received massive doses of radiation exposure, exceeding doses which would be considered appropriate today. As a result, the patient has developed soft tissue radiation injury, and has previously been treated at our wound care facility in the past on several occasions. She has received several series of approximately 90 hyperbaric oxygen therapy treatments, in 2011 and again more recently. In review of the patient's past history, each treatment course has been rather protracted in terms of healing. The patient has been referred for consultation at [facility] (Dr. Harding). Medical records related to the patient's visit at [facility] resulted in no significant new recommendations for treatment or management. Subsequently, the patient was referred to a plastic surgeon, Dr. Cassius Whitman. A number of options were discussed. Dr. Frausto proposed a rectus abdominis myocutaneous flap. As a prelude to flap reconstruction, the patient underwent a CT angiogram at [facility] on December 13, 2018. She met with Dr. Frausto later that same day. The patient relates that the nature of the surgical procedure, and the recovery phase, was described in detail, and anticipated to be quite challenging and lengthy. The patient considered her options, but subsequently decided to defer major surgical intervention. The patient has also met with the vascular surgeon at [facility], Dr. Ganga Tong. Once again, the patient was left with the impression that any surgery to reconstruct the area in the right groin could be fraught with complications and a lengthy recovery. The patient subsequently healed by conservative means, and was discharged in January 2020, only to present once again with spontaneous recurrence of the ulceration in the right groin. Plan: This is a 65-year-old female with a complex past medical history, as detailed above. She presented with a recurrence of her right groin ulceration, secondary to soft tissue radiation injury. Patient is well-known to our facility. We are to continue the use of Fibracol topically, which the patient will apply on a daily basis. Nutritional optimization has been recommended. She is to follow-up for reevaluation in 2 weeks. She is to keep the area clean and dry. Influenza vaccine was not administered today. The patient is not a smoker. She stands 5 feet 8 inches tall. She weighs 195 pounds. Her BMI is 29.6, which places her in an overweight category. Weight loss has been recommended. She is to collaborate with her primary care physician in this regard. Total time: 21 minutes.
[2020-07-21 10:04] VITALS: BP 178/99; PULSE 81; TEMP 36.1; BMI 29.7
--- NOTE | 2020-07-21 10:24 | HP.PCM_ITS ---
(1) Overweight (BMI 25.0-29.9) Status: Chronic Code(s): E66.3 - Overweight (2) History of uterine cancer Status: Chronic Code(s): Z85.42 - Personal history of malignant neoplasm of other parts of uterus (3) History of melanoma Status: Chronic Code(s): Z85.820 - Personal history of malignant melanoma of skin (4) Hyperlipidemia Status: Chronic Code(s): E78.5 - Hyperlipidemia, unspecified (5) GERD (gastroesophageal reflux disease) Status: Chronic Code(s): K21.9 - Gastro-esophageal reflux disease without esophagitis (6) Ulcer of right groin Status: Chronic Qualifiers: Non-pressure ulcer stage: with fat layer exposed Code(s): L98.499 - Non-pressure chronic ulcer of skin of other sites with unspecified severity (7) Obesity (BMI 30.0-34.9) Status: Chronic Code(s): E66.9 - Obesity, unspecified (8) Amputee, above knee Status: Chronic Code(s): Z89.619 - Acquired absence of unspecified leg above knee (9) Soft tissue radionecrosis Status: Chronic Code(s): L59.8 - Other specified disorders of the skin and subcutaneous tissue related to radiation; Y84.2 - Radiological procedure and radiotherapy as the cause of abnormal reaction of the patient, or of later complication, without mention of misadventure at the time of the procedure (10) soft tissue radiation injury Status: Chronic History of Present Illness Date of Service: 07/21/20 Chief Complaint: 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 The patient underwent excision of her melanoma with lymphadenectomy in the right groin. She also underwent lengthy radiation treatments at the [facility] in [place], [place]. Melanoma recurred, and the patient was subsequently treated with monoclonal antibodies in 1984. 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 Treatment included local ulcer care and hyperbaric oxygen therapy. She underwent a total of nearly 90 treatments of hyperbaric oxygen therapy. It is known that she tolerated the therapies well, and derived significant benefit. She has no history of barotrauma to lungs, ears, etc. Her medical history reveals no evidence of contraindications to hyperbaric oxygen therapy. The patient was again treated for an ulceration in the right groin last year and earlier this year, related to soft tissue radiation injury. She subsequently healed in January 2020, and was discharged. Her treatment at that time included local wound care and a total of 90 sessions of hyperbaric oxygen therapy. A series of 10 EpiFix allografts were also used during her course of treatment. Each of the patient's prior courses of treatment in our facility have been protracted, with difficulties encountered in achieving complete healing. Patient presents at this time with a recurrence of her right groin ulceration, again thought to be secondary to soft tissue radiation injury. The ulceration recurred spontaneously on May 16, approximately 10 days ago, prompting the patient to seek treatment at our wound care facility. Since the recurrence of the ulceration, the patient has been using Mary topically. The patient indicates that her health history has not changed since she was last treated in our facility. She has had no recent fevers, sweats, or chills. Past Medical History Past Medical History: Chronic Problems Overweight (BMI 25.0-29.9) (Chronic) History of uterine cancer (Chronic) History of melanoma (Chronic) Hyperlipidemia (Chronic) GERD (gastroesophageal reflux disease) (Chronic) Ulcer of right groin (Chronic) Obesity (BMI 30.0-34.9) (Chronic) Amputee, above knee (Chronic) Soft tissue radionecrosis (Chronic) soft tissue radiation injury (Chronic) Surgical History: - - Patient has previously undergone total hysterectomy. She has undergone excision of melanoma from the right calf, with lymphadenectomy of the right groin in the 1969's. She subsequently required surgeries of the right thigh related to osteomyelitis, MRSA infection, and radiation injury to the right femoral artery. Ultimately, the patient required right above-knee amputation, performed in 2000. She also has a remote history of open reduction and internal fixation of a right ankle fracture. Allergies/Adverse Reactions: Allergies No Known Allergies Allergy (Verified 11/17/20 09:19) Home Medications: Ambulatory Orders Medication Instructions Recorded Famotidine 20 mg PO 06/20/17 Pravastatin [Pravachol] 20 mg PO DAILY 06/20/17 - Family History Maternal - - The patient's mother is 98 years of age and relatively healthy. The patient's father at age of 79 with a history of cardiomyopathy. Smoking Status: Former smoker Tobacco Use: Non-smoker Review of Systems Constitutional: Denies: Chills, Fever, Weight Change Eyes: Denies: Pain, Vision Change HEENT: Denies: Difficulty Hearing, Difficulty Swallowing, Sinus Congestion Cardiovascular: Denies: Chest Pain, Palpitations Respiratory: Denies: Cough, Shortness of Breath Gastrointestinal: Denies: Diarrhea, Nausea, Vomiting Genitourinary: Denies: Dysuria, Hematuria Endocrine: Denies: Heat/ Cold Intolerance, Polydipsia, Polyuria Hematologic/ Lymphatic: Denies: Easy Bruising, Easy Bleeding - Physical Exam Vital Signs Temp Pulse Resp BP 96.9 F L 81 18 178/99 H 07/21/20 10:04 07/21/20 10:04 07/14/20 10:18 07/21/20 10:04 General: Alert, Oriented x3, Cooperative, No apparent distress, Well developed, Well nourished HEENT: Atraumatic, PERRLA, EOMI, Normocephalic Oral: Moist Mucosa Neck: No JVD Lungs: Normal air movement Abdomen: Non-Distended Extremities: No clubbing, No cyanosis, No edema, No Calf Tenderness, - - A well- healed right above-knee amputation stump is noted. Addt'l Wound Findings: The ulceration in the right groin persists. It is small in size. Dimensions are documented elsewhere. There is a small amount of bioburden. There is no sign of infection or cellulitis. Wound Measurements and Assessment WC - Nurse 1 - General Ulcer Measurement Start: 07/14/20 10:18 Freq: Status: Active Protocol: Activity Type Activity Date Activity User E-Sign Co-Sign Detail Recorded Client Recorded Date Recorded By Document 07/21/20 10:04 SONNY [id number] 07/21/20 10:10 SONNY 07/21/20 10:04 Wound Center Nurse 1 [Ulcer Assessment] #9 R Groin -Current Size (cm) - Length 0.5 -Current Size (cm) - Width 0.2 -Current Size (cm) - Depth 0.2 -Total Square Cm 0.10 -Exudate Amt Small -Exudate Type Serosanguineous -Wound Margin Distinct, Outline Attached -Granulation Amt Small (1-33%) -Granulation Quality [place] -Necrosis Amt Small (1-33%) -Necrotic Tissue Type Adherent Slough -Texture (Blanche-wound Skin Appearance) Assessed, Scarring -Moisture (Blanche-wound Skin Appearance No Abnormality, ) Assessed -Color (Blanche-wound Skin Appearance) No Abnormality, Assessed -Temperature (Blanche-wound Skin No Abnormality Appearance) (Pt Warm) -Tenderness on Palpation (Blanche-wound No Skin Appearance) -Ulcer Cleansing Rinsed/ Irrigated with Saline -Foul Odor after Cleansing No -Anesthetic Used 4% Lidocaine Solution Musculoskeletal: No Muscle Wasting Neurological: Cranial nerves II-XII grossly intact, Neuro grossly intact Psych/Mental Status: Normal Affect, Appropriate, Alert and oriented to time, place, person, mood and affect Debridement Note Post-Debridement Measurements/Treatment WC - Nurse 2 - General Ulcer CM Notes Start: 07/14/20 10:18 Freq: Status: Active Protocol: Activity Type Activity Date Activity User E-Sign Co-Sign Detail Recorded Client Recorded Date Recorded By Document 07/14/20 11:56 HITESH [id number] 07/14/20 11:57 HITESH 07/14/20 11:56 Wound Center Nurse 2 #9 R Groin -Time 10:25 -Correct Patient Yes -Correct Side, Site, Position Yes -Correct Procedure Yes -Procedure Performed Yes -Type of Procedure Debridement -Clinical Debridement Subcutaneous -Tissue Removed Subcutaneous -Post Debridement (cm) - Length 0.2 -Post Debridement (cm) - Width 0.2 -Post Debridement (cm) - Depth 0.2 -Total Square (Post) (cm) 0.04 -Area of Debridement (cm) - Length 0.2 -Area of Debridement (cm) - Width 0.2 -Total Square (Area) (cm) 0.04 -Tunneling No -Undermining/Tunneling No -Circular Undermining No -Wound/Ulcer Outcome Not Healed -Ulcer Cleansing Rinsed/ Irrigated with Saline -Foul Odor after Cleansing No -Bioengineered Tissue No -Debridement - Subq, 1st 20sq cm Yes Pain Scale: 0-10 Numeric Is Patient Pain Free? Yes WC - Nurse 3 - General Ulcer D/C NN Start: 07/14/20 10:18 Freq: Status: Active Protocol: Activity Type Activity Date Activity User E-Sign Co-Sign Detail Recorded Client Recorded Date Recorded By Document 07/14/20 10:35 [facility] [id number] 07/14/20 10:35 [facility] 07/14/20 10:35 Wound Care Nurse 3 #9 R Groin -Ulcer Cleansing Rinsed/ Irrigated with Saline -Foul Odor after Cleansing No -Primary Dressing Applied Fibracol Plus 4x4 -Primary Dressing Covered/Secured with Dry Gauze, Secured with Tape -Fibracol Plus 4x4 1 Treatment Response Procedure Tolerated Well Pain Scale: 0-10 Numeric Is Patient Pain Free? Yes WC - Visit Discharge Discharge Condition Stable Ambulatory Status Ambulatory, Crutches Transportation Private Auto Laterality: Right - Groin Type of Debridement: Excisional debridement Anesthesia Used: 5% Lidocaine Gel Depth: Down to and including healthy tissue, in the subcutaneous layer Percentage of wound debrided: 100 Instrument Used: 3mm curette Tissue Removed: Bioburden Severity: Fat Layer Exposed Amount of bleeding with debridement: Mild Bleeding Controlled with: Compression and gauze Patient tolerated procedure well Assessment/Plan Active Problems Overweight (BMI 25.0-29.9) (Chronic) History of uterine cancer (Chronic) History of melanoma (Chronic) Hyperlipidemia (Chronic) GERD (gastroesophageal reflux disease) (Chronic) Ulcer of right groin (Chronic) Obesity (BMI 30.0-34.9) (Chronic) Amputee, above knee (Chronic) Soft tissue radionecrosis (Chronic) soft tissue radiation injury (Chronic) Assessment: This is a 65-year-old female with a somewhat complicated and complex past medical history, documented above. In the 1969's, she was diagnosed with malignant melanoma of the right calf, with metastasis to lymph nodes in the right groin. She underwent excision of the melanoma with right groin lymphadenectomy. She was subsequently treated with a long series of radiation treatments to the right groin. At the time of her radiation treatment, it is suspected that the radiation techniques were somewhat primitive and early in their evolution, and it is quite likely that the patient received massive doses of radiation exposure, exceeding doses which would be considered appropriate today. As a result, the patient has developed soft tissue radiation injury, and has previously been treated at our wound care facility in the past on several occasions. She has received several series of approximately 90 hyperbaric oxygen therapy treatments, in 2012 and again more recently. In review of the patient's past history, each treatment course has been rather protracted in terms of healing. The patient has been referred for consultation at [facility] (Dr. Harding). Medical records related to the patient's visit at [facility] resulted in no significant new recommendations for treatment or management. Subsequently, the patient was referred to a plastic surgeon, Dr. Cassius Whitman. A number of options were discussed. Dr. Frausto proposed a rectus abdominis myocutaneous flap. As a prelude to flap reconstruction, the patient underwent a CT angiogram at [facility] on December 13, 2018. She met with Dr. Frausto later that same day. The patient relates that the nature of the surgical procedure, and the recovery phase, was described in detail, and anticipated to be quite challenging and lengthy. The patient considered her options, but subsequently decided to defer major surgical intervention. The patient has also met with the vascular surgeon at [facility], Dr. Ganga Tong. Once again, the patient was left with the impression that any surgery to reconstruct the area in the right groin could be fraught with complications and a lengthy recovery. The patient subsequently healed by conservative means, and was discharged in January 2020, only to present once again with spontaneous recurrence of the ulceration in the right groin. Plan: This is a 65-year-old female with a complex past medical history, as detailed above. She presented with a recurrence of her right groin ulceration, secondary to soft tissue radiation injury. Patient is well-known to our facility. We are to continue the use of Fibracol topically, which the patient will apply on a daily basis. Nutritional optimization has been recommended. She is to follow-up for reevaluation in 2 weeks. She is to keep the area clean and dry. Influenza vaccine was not administered today. The patient is not a smoker. She stands 5 feet 8 inches tall. She weighs 195 pounds. Her BMI is 29.6, which places her in an overweight category. Weight loss has been recommended. She is to collaborate with her primary care physician in this regard. Total time: 21 minutes.
[2020-08-04 10:26] VITALS: BP 159/84; PULSE 81; RESP 18; TEMP 36.4; BMI 29.7
--- NOTE | 2020-08-04 11:34 | PCM.WC.HP ---
(1) Overweight (BMI 25.0-29.9) Status: Chronic Code(s): E66.3 - Overweight (2) History of uterine cancer Status: Chronic Code(s): Z85.42 - Personal history of malignant neoplasm of other parts of uterus (3) History of melanoma Status: Chronic Code(s): Z85.820 - Personal history of malignant melanoma of skin (4) Hyperlipidemia Status: Chronic Code(s): E78.5 - Hyperlipidemia, unspecified (5) GERD (gastroesophageal reflux disease) Status: Chronic Code(s): K21.9 - Gastro-esophageal reflux disease without esophagitis (6) Ulcer of right groin Status: Chronic Qualifiers: Non-pressure ulcer stage: with fat layer exposed Code(s): L98.499 - Non-pressure chronic ulcer of skin of other sites with unspecified severity (7) Obesity (BMI 30.0-34.9) Status: Chronic Code(s): E66.9 - Obesity, unspecified (8) Amputee, above knee Status: Chronic Code(s): Z89.619 - Acquired absence of unspecified leg above knee (9) Soft tissue radionecrosis Status: Chronic Code(s): L59.8 - Other specified disorders of the skin and subcutaneous tissue related to radiation; Y84.2 - Radiological procedure and radiotherapy as the cause of abnormal reaction of the patient, or of later complication, without mention of misadventure at the time of the procedure (10) soft tissue radiation injury Status: Chronic History of Present Illness Date of Service: 08/04/20 Chief Complaint: 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 The patient underwent excision of her melanoma with lymphadenectomy in the right groin. She also underwent lengthy radiation treatments at the [facility] in [place], [place]. Melanoma recurred, and the patient was subsequently treated with monoclonal antibodies in 1984. 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 Treatment included local ulcer care and hyperbaric oxygen therapy. She underwent a total of nearly 90 treatments of hyperbaric oxygen therapy. It is known that she tolerated the therapies well, and derived significant benefit. She has no history of barotrauma to lungs, ears, etc. Her medical history reveals no evidence of contraindications to hyperbaric oxygen therapy. The patient was again treated for an ulceration in the right groin last year and earlier this year, related to soft tissue radiation injury. She subsequently healed in January 2020, and was discharged. Her treatment at that time included local wound care and a total of 90 sessions of hyperbaric oxygen therapy. A series of 10 EpiFix allografts were also used during her course of treatment. Each of the patient's prior courses of treatment in our facility have been protracted, with difficulties encountered in achieving complete healing. Patient presents at this time with a recurrence of her right groin ulceration, again thought to be secondary to soft tissue radiation injury. The ulceration recurred spontaneously on May 16, approximately 10 days ago, prompting the patient to seek treatment at our wound care facility. Since the recurrence of the ulceration, the patient has been using Mary topically. The patient indicates that her health history has not changed since she was last treated in our facility. She has had no recent fevers, sweats, or chills. Past Medical History Past Medical History: Chronic Problems Overweight (BMI 25.0-29.9) (Chronic) History of uterine cancer (Chronic) History of melanoma (Chronic) Hyperlipidemia (Chronic) GERD (gastroesophageal reflux disease) (Chronic) Ulcer of right groin (Chronic) Obesity (BMI 30.0-34.9) (Chronic) Amputee, above knee (Chronic) Soft tissue radionecrosis (Chronic) soft tissue radiation injury (Chronic) Surgical History: - - Patient has previously undergone total hysterectomy. She has undergone excision of melanoma from the right calf, with lymphadenectomy of the right groin in the 1969's. She subsequently required surgeries of the right thigh related to osteomyelitis, MRSA infection, and radiation injury to the right femoral artery. Ultimately, the patient required right above-knee amputation, performed in 2000. She also has a remote history of open reduction and internal fixation of a right ankle fracture. Allergies/Adverse Reactions: Allergies No Known Allergies Allergy (Verified 11/17/20 09:19) Home Medications: Ambulatory Orders Medication Instructions Recorded Famotidine 20 mg PO 06/20/17 Pravastatin [Pravachol] 20 mg PO DAILY 06/20/17 - Family History Maternal - - The patient's mother is 98 years of age and relatively healthy. The patient's father at age of 79 with a history of cardiomyopathy. Smoking Status: Former smoker Tobacco Use: Non-smoker Review of Systems Constitutional: Denies: Chills, Fever, Weight Change Eyes: Denies: Pain, Vision Change HEENT: Denies: Difficulty Hearing, Difficulty Swallowing, Sinus Congestion Cardiovascular: Denies: Chest Pain, Palpitations Respiratory: Denies: Cough, Shortness of Breath Gastrointestinal: Denies: Diarrhea, Nausea, Vomiting Genitourinary: Denies: Dysuria, Hematuria Endocrine: Denies: Heat/ Cold Intolerance, Polydipsia, Polyuria Hematologic/ Lymphatic: Denies: Easy Bruising, Easy Bleeding - Physical Exam Vital Signs Temp Pulse Resp BP 97.6 F L 81 18 159/84 H 08/04/20 10:26 08/04/20 10:26 08/04/20 10:26 08/04/20 10:26 General: Alert, Oriented x3, Cooperative, No apparent distress, Well developed, Well nourished HEENT: Atraumatic, PERRLA, EOMI, Normocephalic Oral: Moist Mucosa Neck: No JVD Lungs: Normal air movement Abdomen: Non-Distended Extremities: No clubbing, No cyanosis, No edema, No Calf Tenderness, - - A well-healed right above-knee amputation stump is noted. Addt'l Wound Findings: The wound in the patient's right groin persists. However, it is much smaller in size. At this juncture, it measures only approximately 2-3 mm in width. There is a small amount of bioburden. There is no sign of infection or cellulitis. Skin: No rashes Wound Measurements and Assessment WC - Nurse 1 - General Ulcer Measurement Start: 07/14/20 10:18 Freq: Status: Active Protocol: Activity Type Activity Date Activity User E-Sign Co-Sign Detail Recorded Client Recorded Date Recorded By Document 08/04/20 10:26 PL [id number] 08/04/20 10:31 PL 08/04/20 10:26 Wound Center Nurse 1 [Ulcer Assessment] #9 R Groin -Current Size (cm) - Length 0 -Current Size (cm) - Width 0 -Current Size (cm) - Depth 0 -Total Square Cm 0 -Photo Taken No -Epithelialization Large 67-100% -Tunneling No -Undermining/Tunneling No -Circular Undermining No -Exudate Amt None Present -Granulation Amt Large (67-100%) -Granulation Quality Solis -Slough/Fibrin No -Necrosis Amt None Present (0 %) -Texture (Blanche-wound Skin Appearance) No Abnormality -Moisture (Blanche-wound Skin Appearance No Abnormality ) -Color (Blanche-wound Skin Appearance) No Abnormality -Ulcer Cleansing Rinsed/ Irrigated with Saline -Foul Odor after Cleansing No -Anesthetic Used 4% Lidocaine Solution - Nurse 3 - General Ulcer D/C NN Start: 07/14/20 10:18 Freq: Status: Active Protocol: Activity Type Activity Date Activity User E-Sign Co-Sign Detail Recorded Client Recorded Date Recorded By Document 08/04/20 11:13 KR [id number] 08/04/20 11:14 KR 08/04/20 11:13 Wound Care Nurse 3 [Wound Dressing] -Ulcer Cleansing Rinsed/ Irrigated with Saline -Foul Odor after Cleansing No Pain Scale: 0-10 Numeric [Pain] -Is Patient Pain Free? Yes - Visit Discharge [Visit Discharge Information] -Discharge Condition Stable -Ambulatory Status Ambulatory -Transportation Private Auto Musculoskeletal: No Muscle Wasting Neurological: Cranial nerves II-XII grossly intact, Neuro grossly intact Psych/Mental Status: Normal Affect, Appropriate, Alert and oriented to time, place, person, mood and affect Debridement Note Post-Debridement Measurements/Treatment - Nurse 2 - General Ulcer CM Notes Start: 07/14/20 10:18 Freq: Status: Active Protocol: Activity Type Activity Date Activity User E-Sign Co-Sign Detail Recorded Client Recorded Date Recorded By Document 07/14/20 11:56 PL [id number] 07/14/20 11:57 PL Document 07/21/20 10:18 MW [id number] 07/21/20 10:24 MW 07/14/20 07/21/20 11:56 10:18 Wound Center Nurse 2 #9 R Groin -Time 10:25 10:19 -Correct Patient Yes Yes -Correct Side, Site, Position Yes Yes -Correct Procedure Yes Yes -Procedure Performed Yes Yes -Type of Procedure Debridement Debridement -Clinical Debridement Subcutaneous Subcutaneous -Tissue Removed Subcutaneous Subcutaneous -Post Debridement (cm) - Length 0.2 0.4 -Post Debridement (cm) - Width 0.2 0.2 -Post Debridement (cm) - Depth 0.2 0.2 -Total Square (Post) (cm) 0.04 0.08 -Area of Debridement (cm) - Length 0.2 0.4 -Area of Debridement (cm) - Width 0.2 0.2 -Total Square (Area) (cm) 0.04 0.08 -Tunneling No No -Undermining/Tunneling No No -Circular Undermining No No -Wound/Ulcer Outcome Not Healed Not Healed -Ulcer Cleansing Rinsed/ Rinsed/ Irrigated with Irrigated with Saline Saline -Foul Odor after Cleansing No No -Bioengineered Tissue No No -Bleeding Controlled with Pressure -Offloading No -Treatment Response Procedure Tolerated Well -Debridement - Subq, 1st 20sq cm Yes Yes Pain Scale: 0-10 Numeric Is Patient Pain Free? Yes Yes - Nurse 3 - General Ulcer D/C NN Start: 07/14/20 10:18 Freq: Status: Active Protocol: Activity Type Activity Date Activity User E-Sign Co-Sign Detail Recorded Client Recorded Date Recorded By Document 07/14/20 10:35 [facility] [id number] 07/14/20 10:35 [facility] Document 07/21/20 10:24 MW [id number] 07/21/20 10:25 MW Document 08/04/20 11:13 KR [id number] 08/04/20 11:14 KR 07/14/20 07/21/20 08/04/20 10:35 10:24 11:13 Wound Care Nurse 3 #9 R Groin -Ulcer Cleansing Rinsed/ Rinsed/ Rinsed/ Irrigated with Irrigated with Irrigated with Saline Saline Saline -Foul Odor after Cleansing No No No -Negative Pressure Wound Therapy N/A -Primary Dressing Applied Fibracol Plus 4x4 -Other Dressing fibracol plus -Primary Dressing Covered/Secured with Dry Gauze, Dry Gauze, Secured with Secured with Tape Tape -Fibracol Plus 4x4 1 Treatment Response Procedure Procedure Tolerated Well Tolerated Well Pain Scale: 0-10 Numeric Is Patient Pain Free? Yes Yes Yes Teaching: Wound Center Dressing Your Wound -Person Taught Patient -Teaching Method Discussion -Response to teaching Verbalize understanding WC - Visit Discharge Discharge Condition Stable Stable Stable Ambulatory Status Ambulatory, Ambulatory Ambulatory Crutches Transportation Private Auto Private Auto Private Auto Accompanied by self Medication Reconcilliation completed & No provided to patient/care provider Clinical Summary of Care Provided Yes Laterality: Right - Groin Type of Debridement: Excisional debridement Anesthesia Used: 5% Lidocaine Gel Depth: Down to and including healthy tissue, in the subcutaneous layer Percentage of wound debrided: 100 Instrument Used: 3mm curette Tissue Removed: Bioburden Severity: Fat Layer Exposed Amount of bleeding with debridement: Mild Bleeding Controlled with: Compression and gauze Patient tolerated procedure well Assessment/Plan Active Problems Overweight (BMI 25.0-29.9) (Chronic) History of uterine cancer (Chronic) History of melanoma (Chronic) Hyperlipidemia (Chronic) GERD (gastroesophageal reflux disease) (Chronic) Ulcer of right groin (Chronic) Obesity (BMI 30.0-34.9) (Chronic) Amputee, above knee (Chronic) Soft tissue radionecrosis (Chronic) soft tissue radiation injury (Chronic) Assessment: This is a 65-year-old female with a somewhat complicated and complex past medical history, documented above. In the 1970's, she was diagnosed with malignant melanoma of the right calf, with metastasis to lymph nodes in the right groin. She underwent excision of the melanoma with right groin lymphadenectomy. She was subsequently treated with a long series of radiation treatments to the right groin. At the time of her radiation treatment, it is suspected that the radiation techniques were somewhat primitive and early in their evolution, and it is quite likely that the patient received massive doses of radiation exposure, exceeding doses which would be considered appropriate today. As a result, the patient has developed soft tissue radiation injury, and has previously been treated at our wound care facility in the past on several occasions. She has received several series of approximately 90 hyperbaric oxygen therapy treatments, in 2012 and again more recently. In review of the patient's past history, each treatment course has been rather protracted in terms of healing. The patient has been referred for consultation at [facility] (Dr. Harding). Medical records related to the patient's visit at [facility] resulted in no significant new recommendations for treatment or management. Subsequently, the patient was referred to a plastic surgeon, Dr. Cassius Whitman. A number of options were discussed. Dr. Frausto proposed a rectus abdominis myocutaneous flap. As a prelude to flap reconstruction, the patient underwent a CT angiogram at [facility] on December 13, 2018. She met with Dr. Frausto later that same day. The patient relates that the nature of the surgical procedure, and the recovery phase, was described in detail, and anticipated to be quite challenging and lengthy. The patient considered her options, but subsequently decided to defer major surgical intervention. The patient has also met with the vascular surgeon at [facility], Dr. Ganga Tong. Once again, the patient was left with the impression that any surgery to reconstruct the area in the right groin could be fraught with complications and a lengthy recovery. The patient subsequently healed by conservative means, and was discharged in January 2020, only to present once again with spontaneous recurrence of the ulceration in the right groin. Plan: This is a 65-year-old female with a complex past medical history, as detailed above. She presented with a recurrence of her right groin ulceration, secondary to soft tissue radiation injury. Patient is well-known to our facility. We are to continue the use of Fibracol topically, which the patient will apply on a daily basis. Nutritional optimization has been recommended. She is to follow-up for reevaluation in 2 weeks. She is to keep the area clean and dry. Influenza vaccine was not administered today. The patient is not a smoker. She stands 5 feet 8 inches tall. She weighs 195 pounds. Her BMI is 29.6, which places her in an overweight category. Weight loss has been recommended. She is to collaborate with her primary care physician in this regard. Total time: 21 minutes.
== END 2020-08-09 23:59 ==
LOC: WC 10:00
PROVIDERS: Family Provider Family Medicine; PCP Family Medicine; Referring Provider Surgery; Visit Provider Surgery
DX: L59.8 Other specified disorders of the skin and subcutaneous tissue related to radiation (principal); E78.5 Hyperlipidemia, unspecified; L97.112 Non-pressure chronic ulcer of right thigh with fat layer exposed; K21.9 Gastro-esophageal reflux disease without esophagitis; Y84.2 Radiological procedure and radiotherapy as the cause of abnormal reaction of the patient, or of later complication, without mention of misadventure at the time of the procedure; Z85.42 Personal history of malignant neoplasm of other parts of uterus; Z85.820 Personal history of malignant melanoma of skin; Z86.14 Personal history of Methicillin resistant Staphylococcus aureus infection; Z89.611 Acquired absence of right leg above knee; Z87.891 Personal history of nicotine dependence
CPT/HCPCS: 11042

== ENCOUNTER 2020-09-01 09:45 | Outpatient (RCR) | payer MEDICARE, OTHER, SELFPAY ==
[2020-08-10 00:12] VITALS: BP 159/84; PULSE 81; RESP 18; TEMP 36.4
[2020-09-01 09:35] VITALS: BP 154/89; PULSE 91; RESP 16; TEMP 36; BMI 29.7
--- NOTE | 2020-09-01 10:18 | HP.PCM_ITS ---
(1) History of uterine cancer Status: Chronic Code(s): Z85.42 - Personal history of malignant neoplasm of other parts of uterus (2) History of melanoma Status: Chronic Code(s): Z85.820 - Personal history of malignant melanoma of skin (3) Hyperlipidemia Status: Chronic Code(s): E78.5 - Hyperlipidemia, unspecified (4) GERD (gastroesophageal reflux disease) Status: Chronic Code(s): K21.9 - Gastro-esophageal reflux disease without esophagitis (5) Ulcer of right groin Status: Chronic Qualifiers: Non-pressure ulcer stage: with fat layer exposed Code(s): L98.499 - Non-pressure chronic ulcer of skin of other sites with unspecified severity (6) Amputee, above knee Status: Chronic Code(s): Z89.619 - Acquired absence of unspecified leg above knee (7) Soft tissue radionecrosis Status: Chronic Code(s): L59.8 - Other specified disorders of the skin and subcutaneous tissue related to radiation; Y84.2 - Radiological procedure and radiotherapy as the cause of abnormal reaction of the patient, or of later complication, without mention of misadventure at the time of the procedure (8) soft tissue radiation injury Status: Chronic History of Present Illness Date of Service: 09/01/20 Chief Complaint: Soft tissue radionecrosis of the right groin with open ulceration History of Wound: This is a 65-year-old female with a long and compli cated past medical history. 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 The patient underwent excision of her melanoma with lymphadenectomy in the right groin. She also underwent lengthy radiation treatments at the [facility] in [place], [place]. Melanoma recurred, and the patient was subsequently treated with monoclonal antibodies in 1984. 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 Treatment included local ulcer care and hyperbaric oxygen therapy. She underwent a total of nearly 90 treatments of hyperbaric oxygen therapy. It is known that she tolerated the therapies well, and derived significant benefit. She has no history of barotrauma to lungs, ears, etc. Her medical history reveals no evidence of contraindications to hyperbaric oxygen therapy. The patient was again treated for an ulceration in the right groin last year and earlier this year, related to soft tissue radiation injury. She subsequently healed in January 2020, and was discharged. Her treatment at that time included local wound care and a total of 90 sessions of hyperbaric oxygen therapy. A series of 10 EpiFix allografts were also used during her course of treatment. Each of the patient's prior courses of treatment in our facility have been protracted, with difficulties encountered in achieving complete healing. Patient presents at this time with a recurrence of her right groin ulceration, again thought to be secondary to soft tissue radiation injury. The ulceration recurred spontaneously on May 16, approximately 10 days ago, prompting the patient to seek treatment at our wound care facility. Since the recurrence of the ulceration, the patient has been using Mary topically. The patient indicates that her health history has not changed since she was last treated in our facility. She has had no recent fevers, sweats, or chills. Past Medical History Past Medical History: Chronic Problems Overweight (BMI 25.0-29.9) (Chronic) History of uterine cancer (Chronic) History of melanoma (Chronic) Hyperlipidemia (Chronic) GERD (gastroesophageal reflux disease) (Chronic) Ulcer of right groin (Chronic) Obesity (BMI 30.0-34.9) (Chronic) Amputee, above knee (Chronic) Soft tissue radionecrosis (Chronic) soft tissue radiation injury (Chronic) Surgical History: - - Patient has previously undergone total hysterectomy. She has undergone excision of melanoma from the right calf, with lymphadenectomy of the right groin in the 1969's. She subsequently required surgeries of the right thigh related to osteomyelitis, MRSA infection, and radiation injury to the right femoral artery. Ultimately, the patient required right above-knee amputation, performed in 2000. She also has a remote history of open reduction and internal fixation of a right ankle fracture. Allergies/Adverse Reactions: Allergies No Known Allergies Allergy (Verified 05/26/20 09:19) Home Medications: Ambulatory Orders Medication Instructions Recorded Famotidine 20 mg PO 06/20/17 Pravastatin [Pravachol] 20 mg PO DAILY 06/20/17 - Family History Maternal - - The patient's mother is 98 years of age and relatively healthy. The patient's father at age of 79 with a history of cardiomyopathy. Smoking Status: Former smoker Tobacco Use: Non-smoker Review of Systems Constitutional: Denies: Chills, Fever, Weight Change Eyes: Denies: Pain, Vision Change HEENT: Denies: Difficulty Hearing, Difficulty Swallowing, Sinus Congestion Cardiovascular: Denies: Chest Pain, Palpitations Respiratory: Denies: Cough, Shortness of Breath Gastrointestinal: Denies: Diarrhea, Nausea, Vomiting Genitourinary: Denies: Dysuria, Hematuria Endocrine: Denies: Heat/ Cold Intolerance, Polydipsia, Polyuria Hematologic/ Lymphatic: Denies: Easy Bruising, Easy Bleeding - Physical Exam Vital Signs Temp Pulse Resp BP 96.8 F L 91 16 154/89 H 09/01/20 09:35 09/01/20 09:35 09/01/20 09:35 09/01/20 09:35 General: Alert, Oriented x3, Cooperative, No apparent distress, Well developed, Well nourished HEENT: Atraumatic, PERRLA, EOMI, Normocephalic Oral: Moist Mucosa Neck: No JVD Lungs: Normal air movement Abdomen: Non-Distended Extremities: No clubbing, No cyanosis, No edema, No Calf Tenderness, - - A well- healed right above-knee amputation stump is noted. The ulceration in the right groin is now completely healed and epithelialized. Wound Measurements and Assessment WC - Nurse 1 - General Ulcer Measurement Start: 09/01/20 09:34 Freq: Status: Active Protocol: Activity Type Activity Date Activity User E-Sign Co-Sign Detail Recorded Client Recorded Date Recorded By Document 09/01/20 09:35 [facility] [id number] 09/01/20 09:39 [facility] 09/01/20 09:35 Wound Center Nurse 1 [Ulcer Assessment] #9 R Groin -Combined with other wound No -Current Size (cm) - Length 0.1 -Current Size (cm) - Width 0.1 -Current Size (cm) - Depth 0.1 -Total Square Cm 0.01 -Epithelialization Large 67-100% -Tunneling No -Undermining/Tunneling No -Circular Undermining No -Exudate Amt None Present -Wound Margin Fibrotic Scar, Thickened Scar -Granulation Amt None Present (0 %) -Granulation Quality N/A -Slough/Fibrin No -Necrosis Amt None Present (0 %) -Texture (Blanche-wound Skin Appearance) Assessed -Moisture (Blanche-wound Skin Appearance Assessed ) -Color (Blanche-wound Skin Appearance) Assessed -Temperature (Blanche-wound Skin No Abnormality Appearance) (Pt Warm) -Tenderness on Palpation (Blanche-wound No Skin Appearance) [Edema Assessment] -Lower Limb Edema Present No Musculoskeletal: No Muscle Wasting Neurological: Cranial nerves II-XII grossly intact, Neuro grossly intact Psych/Mental Status: Normal Affect, Appropriate, Alert and oriented to time, place, person, mood and affect Debridement Note No debridement was completed today - The ulceration appears completely healed in the right groin. Assessment/Plan Assessment: This is a 65-year-old female with a somewhat complicated and complex past medical history, documented above. In the 1969's, she was diagnosed with malignant melanoma of the right calf, with metastasis to lymph nodes in the right groin. She underwent excision of the melanoma with right groin lymphadenectomy. She was subsequently treated with a long series of radiation treatments to the right groin. At the time of her radiation treatment, it is suspected that the radiation techniques were somewhat primitive and early in their evolution, and it is quite likely that the patient received massive doses of radiation exposure, exceeding doses which would be considered appropriate today. As a result, the patient developed soft tissue radiation injury, and has previously been treated at our wound care facility in the past on several occasions. She has received several series of approximately 90 hyperbaric oxygen therapy treatments, in 2011 and again more recently. In review of the patient's past history, each treatment course has been rather protracted in terms of healing. The patient has been referred for consultation at [facility] (Dr. Harding). Medical records related to the patient's visit at [facility] resulted in no significant new recommendations for treatment or management. Subsequently, the patient was referred to a plastic surgeon, Dr. Cassius Whitman. A number of options were discussed. Dr. Frausto proposed a rectus abdominis myocutaneous flap. As a prelude to flap reconstruction, the patient underwent a CT angiogram at [facility] on December 13, 2018. She met with Dr. Frausto later that same day. The patient relates that the nature of the surgical procedure, and the recovery phase, was described in detail, and anticipated to be quite challenging and lengthy. The patient considered her options, but subsequently decided to defer major surgical intervention. The patient has also met with the vascular surgeon at [facility], Dr. Ganga Tong. Once again, the patient was left with the impression that any surgery to reconstruct the area in the right groin could be fraught with complications and a lengthy recovery. The patient subsequently healed by conservative means, and was discharged in January 2020, only to present once again with spontaneous recurrence of the ulceration in the right groin. As of today's visit, however, her right groin ulceration is completely healed and epithelialized. Plan: This is a 65-year-old female with a complex past medical history, as detailed above. She presented with a recurrence of her right groin ulceration, secondary to soft tissue radiation injury. Patient is well-known to our facility. As of this date, the ulceration in the right groin appears completely healed and epithelialized, and the patient is to be discharged, for follow-up henceforth on an as-needed basis. She has been instructed to keep the area clean, dry, and free of trauma. Influenza vaccine was not administered today. The patient is not a smoker. She stands 5 feet 8 inches tall. She weighs 195 pounds. Her BMI is 29.6, which places her in an overweight category. Weight loss has been recommended. She is to collaborate with her primary care physician in this regard. Total time: 22 minutes.
== END 2020-09-01 10:19 | disposition home or self-care (01) ==
LOC: WC 09:45
PROVIDERS: Family Provider Family Medicine; PCP Family Medicine; Referring Provider Surgery; Visit Provider Surgery
DX: Z09 Encounter for follow-up examination after completed treatment for conditions other than malignant neoplasm (principal); L59.8 Other specified disorders of the skin and subcutaneous tissue related to radiation; Y84.2 Radiological procedure and radiotherapy as the cause of abnormal reaction of the patient, or of later complication, without mention of misadventure at the time of the procedure; K21.9 Gastro-esophageal reflux disease without esophagitis; E78.5 Hyperlipidemia, unspecified; E66.9 Obesity, unspecified; Z89.619 Acquired absence of unspecified leg above knee; Z85.42 Personal history of malignant neoplasm of other parts of uterus; Z85.820 Personal history of malignant melanoma of skin; Z86.14 Personal history of Methicillin resistant Staphylococcus aureus infection; Z87.891 Personal history of nicotine dependence; Z68.29 Body mass index [BMI] 29.0-29.9, adult
CPT/HCPCS: 99213; G0463

== ENCOUNTER 2020-12-01 09:15 | Outpatient (RCR) | payer MEDICARE, OTHER, SELFPAY ==
[2020-11-24 08:19] VITALS: BP 155/86; PULSE 83; TEMP 36.3; BMI 29.7
--- NOTE | 2020-11-24 12:43 | HP.PCM_ITS ---
History of Present Illness Date of Service: 11/24/20 Chief Complaint: Soft tissue radionecrosis of the right groin with open ul ceration History of Wound: This is a 65-year-old female with a long and complicated past medical history. The patient was diagnosed with melanoma of the right calf in the s. 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 The patient underwent excision of her melanoma with lymphadenectomy in the right groin. She also underwent lengthy radiation treatments at the [facility] [place] in [place], [place]. Melanoma recurred, and the patient was subsequently treated with monoclonal antibodies in 1984. 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 Treatment included local ulcer care and hyperbaric oxygen therapy. She underwent a total of nearly 90 treatments of hyperbaric oxygen therapy. It is known that she tolerated the therapies well, and derived significant benefit. 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 She has also undergone several sessions of hyperbaric oxygen therapy. She is also received a series of 10 EpiFix allografts in the course of previous treatment. Each of the patient's prior courses of treatment in our facility have been protracted, with difficulties encountered in achieving complete healing. Her most recent course of treatment ended with successful healing and discharge in August 2020. The patient presents at this time with a recurrence of her right groin ulceration, again thought to be secondary to soft tissue radiation injury. The ulceration recurred spontaneously approximately 1 week prior to her presentation. The patient indicates that her health history has not changed since she was last treated in our facility. [facility] Home Medications famotidine 20 mg PO 06/20/17 [History Last Taken Unknown] pravastatin 20 mg PO DAILY 06/20/17 [History Last Taken Unknown] Allergy/AdvReac Type Severity Reaction Status Date / Time No Known Allergies Allergy Verified 05/26/20 09:19 Social History Smoking Status: Former smoker Vital Signs Vital Signs Vital Signs: 11/24/20 08:19 Temperature 97.3 F L Temperature Source Temporal Pulse Rate 83 Blood Pressure 155/86 H Blood Pressure Mean 109 Blood Pressure Source Monitor Blood Pressure Position Semi-Fowlers Blood Pressure Location Left Arm Physical Exam Const alert, oriented x3, no apparent distress and well nourished General Appearance: cooperative, comfortable, well kempt and well developed Orientation / Consciousness: awake, oriented to person, oriented to place and oriented to time HEENT normocephalic and head/scalp atraumatic Head and Scalp: normal to inspection, normocephalic and atraumatic Eyes PERRL and EOMs intact bilaterally Resp normal respiratory effort and no use of accessory muscles Effort and Inspection: able to speak in complete sentences Extremity no calf tenderness Extremity Narrative: Healed right above-knee amputation stump is noted. The wound in the right groin is at the same location as previously. Is small in size. Dimensions are documented elsewhere. There is no sign of infection or cellulitis. There is a small amount of bioburden. General Extremity: Negative for clubbing or cyanosis Neuro oriented x3 and CN's II-XII intact bilaterally Psych Appearance: grossly normal, appropriate and well kempt Attitude: calm and engaged Activity / Motor Behavior: appropriate eye contact Speech: normal speech Thought Process: normal thought process Debridement Note Debridement Note Post-Debridement Measurements and Additional Note: Post-Debridement Measurements/Treatment KISHA - Nurse 1 - General Ulcer Assessment Start: 11/24/20 08:17 Freq: Status: Active Protocol: MICHAEL Activity Type Activity Date Activity User E-Sign Co-Sign Detail Recorded Client Recorded Date Recorded By Document 11/24/20 08:19 SONNY [id number] 11/24/20 08:29 SONNY 11/24/20 08:19 - Today's Visit Information Type of service Initial Visit Arrival Mode Ambulatory Patient Identification Verified (Name & Yes ) Height and Weight Body Mass Index (BMI) 29.7 BMI Classification Overweight Vital Signs Temperature (97.8 F-99.1 F) 97.3 F L Temperature Source Temporal Pulse Rate (60-100) 83 Pulse Location Monitor Blood Pressure (90/60-120/80) 155/86 H Blood Pressure Mean 109 Source Monitor Position Semi-Fowlers Blood Pressure Location Left Arm History Since Last Visit- (Skip if this is Patient's initial visit) Have you changed medications since your No last visit? Any new allergies or adverse reactions No Had a fall/change in ADL's that may No increase risk of falls Signs or symptoms of abuse and/or No neglect since last visit Have you been in the hospital since your No last visit? Has dressing in place as prescribed Yes Has compression in place as prescribed N/A Has offloadiing in place as prescribed N/A Experienced any changes in pain level or No management Left Footwear Regular Shoe Right Footwear Regular Shoe Pain Scale: 0-10 Numeric Is Patient Pain Free? Yes - Nurse 1 - General Ulcer Measurement Start: 11/24/20 08:17 Freq: Status: Active Protocol: Activity Type Activity Date Activity User E-Sign Co-Sign Detail Recorded Client Recorded Date Recorded By Document 11/24/20 08:19 KR [id number] 11/24/20 08:29 SONNY 11/24/20 08:19 Wound Center Nurse 1 # 10 Right Groin -Current Size (cm) - Length 0.4 -Current Size (cm) - Width 0.4 -Current Size (cm) - Depth 0.2 -Total Square Cm 0.16 -Exudate Amt Small -Exudate Type Serosanguineous -Wound Margin Distinct, Outline Attached -Granulation Amt Medium (34-66%) -Granulation Quality [place] -Necrosis Amt None Present (0 %) -Texture (Blanche-wound Skin Appearance) Assessed, Scarring -Moisture (Blanche-wound Skin Appearance) No Abnormality, Assessed -Color (Blanche-wound Skin Appearance) No Abnormality, Assessed -Temperature (Blanche-wound Skin No Abnormality Appearance) (Pt Warm) -Tenderness on Palpation (Blanche-wound No Skin Appearance) -Ulcer Cleansing Rinsed/ Irrigated with Saline -Foul Odor after Cleansing No -Anesthetic Used 4% Lidocaine Solution - Nurse 2 - General Ulcer CM Notes Start: 11/24/20 08:17 Freq: Status: Active Protocol: Activity Type Activity Date Activity User E-Sign Co-Sign Detail Recorded Client Recorded Date Recorded By Document 11/24/20 12:29 HITESH [id number] 11/24/20 12:30 PL 11/24/20 12:29 Wound Center Nurse 2 -Time 08:43 -Correct Patient Yes -Correct Side, Site, Position Yes -Correct Procedure Yes -Procedure Performed Yes -Type of Procedure Debridement -Clinical Debridement Subcutaneous -Tissue Removed Subcutaneous -Post Debridement (cm) - Length 0.4 -Post Debridement (cm) - Width 0.4 -Post Debridement (cm) - Depth 0.2 -Total Square (Post) (cm) 0.16 -Area of Debridement (cm) - Length 0.4 -Area of Debridement (cm) - Width 0.4 -Total Square (Area) (cm) 0.16 -Tunneling No -Undermining/Tunneling No -Circular Undermining No -Wound/Ulcer Outcome Not Healed -Ulcer Cleansing Rinsed/ Irrigated with Saline -Foul Odor after Cleansing No -Bioengineered Tissue No -Bleeding Controlled with Pressure -Treatment Response Procedure Tolerated Well -Debridement - Subq, 1st 20sq cm Yes Pain Scale: 0-10 Numeric Is Patient Pain Free? Yes WC - Nurse 3 - General Ulcer D/C NN Start: 11/24/20 08:17 Freq: Status: Active Protocol: Activity Type Activity Date Activity User E-Sign Co-Sign Detail Recorded Client Recorded Date Recorded By Document 11/24/20 08:50 SONNY [id number] 11/24/20 08:51 SONNY 11/24/20 08:50 Wound Care Nurse 3 # 10 Right Groin -Ulcer Cleansing Rinsed/ Irrigated with Saline -Primary Dressing Applied Fibracol Plus 4x4 -Primary Dressing Covered/Secured with Dry Gauze, Secured with Tape -Fibracol Plus 4x4 1 Pain Scale: 0-10 Numeric Is Patient Pain Free? Yes WC - Visit Discharge Discharge Condition Stable Ambulatory Status Ambulatory Transportation Private Auto Wound debrided: Right groin Laterality: Right Type of Debridement: Excisional debridement Anesthesia Used: 5% Lidocaine Gel Depth: Down to and including healthy tissue and in the subcutaneous layer Percentage of wound debrided: 100 Instrument Used: 3mm curette Tissue Removed: Bioburden Severity: Fat Layer Exposed Amount of bleeding with debridement: Mild Bleeding Controlled with: Compression and gauze Patient tolerated procedure: Patient tolerated procedure well Assessment & Plan Assessment/Plan (1) soft tissue radiation injury: (2) Soft tissue radionecrosis: (3) History of melanoma: (4) Ulcer of right groin: QUALIFIERS: Non-pressure ulcer stage: with fat layer exposed (5) Hyperlipidemia: (6) GERD (gastroesophageal reflux disease): (7) Amputee, above knee: (8) History of uterine cancer: PLAN: This is a 65-year-old female with a complex past medical history, much of which has been detailed above. She presented with a recurrence of her right groin ulceration, secondary to soft tissue radiation injury. The patient has been treated at our facility numerous times in the past. Her current ulceration recurred approximately 1 week prior to her presentation. We are to implement conservative treatment measures, which have proven to be successful previously. These are to include the use of Fibracol, applied by the patient on a daily basis. Serial weekly debridements are anticipated. The patient has been instructed to keep the area clean and dry, as its location in an intertriginous zone subject to the ulceration to body heat and perspiration. Th e patient is to return in 1 week for reassessment. Total time: 29 minutes.
[2020-12-01 09:24] VITALS: BP 152/85; PULSE 85; RESP 16; TEMP 36.3; BMI 29.7
--- NOTE | 2020-12-01 13:00 | PCM.WC.HP ---
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 The patient was diagnosed with melanoma of the right calf in the s. 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 The patient underwent excision of her melanoma with lymphadenectomy in the right groin. She also underwent lengthy radiation treatments at the [facility] in [place], [place]. Melanoma recurred, and the patient was subsequently treated with monoclonal antibodies in 1984. 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 Treatment included local ulcer care and hyperbaric oxygen therapy. She underwent a total of nearly 90 treatments of hyperbaric oxygen therapy. It is known that she tolerated the therapies well, and derived significant benefit. 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 She has also undergone several sessions of hyperbaric oxygen therapy. She is also received a series of 10 EpiFix allografts in the course of previous treatment. Each of the patient's prior courses of treatment in our facility have been protracted, with difficulties encountered in achieving complete healing. Her most recent course of treatment ended with successful healing and discharge in August 2020. The patient presents at this time with a recurrence of her right groin ulceration, again thought to be secondary to soft tissue radiation injury. The ulceration recurred spontaneously approximately 1 week prior to her presentation. The patient indicates that her health history has not changed since she was last treated in our facility. [facility] Home Medications famotidine 20 mg PO 06/20/17 [History Last Taken Unknown] pravastatin 20 mg PO DAILY 06/20/17 [History Last Taken Unknown] Allergy/AdvReac Type Severity Reaction Status Date / Time No Known Allergies Allergy Verified 05/26/20 09:19 Social History Smoking Status: Former smoker Vital Signs Vital Signs Vital Signs: 12/01/20 09:24 Temperature 97.4 F L Temperature Source Temporal Pulse Rate 85 Respiratory Rate 16 Blood Pressure 152/85 H Blood Pressure Mean 107 Blood Pressure Source Monitor Blood Pressure Position Sitting Blood Pressure Location Right Arm Oxygen Delivery Method Room Air Weight Body Mass Index (BMI) 29.7 Physical Exam Const alert, oriented x3, no apparent distress and well nourished General Appearance: cooperative, comfortable, well kempt and well developed Orientation / Consciousness: awake, oriented to person, oriented to place and oriented to time HEENT normocephalic Head and Scalp: atraumatic External Ear: external ears normal Eyes PERRL and EOMs intact bilaterally General Eye: normal appearance of both eyes Resp normal respiratory effort and no use of accessory muscles Effort and Inspection: able to speak in complete sentences Extremity no calf tenderness Extremity Narrative: A well-healed right above-knee amputation stump is noted. General Extremity: Negative for clubbing or cyanosis Skin Wound Narrative: The wound persists in the patient's right groin. It is small in size. Dimensions are documented elsewhere. There is no sign of infection or cellulitis. There is a small amount of bioburden. Neuro oriented x3 and CN's II-XII intact bilaterally Psych mental status grossly normal Appearance: grossly normal, appropriate and well kempt Attitude: calm and engaged Activity / Motor Behavior: appropriate eye contact Speech: normal speech Thought Process: normal thought process Debridement Note Debridement Note Post-Debridement Measurements and Additional Note: Post-Debridement Measurements/Treatment - Nurse 1 - General Ulcer Assessment Start: 11/24/20 08:17 Freq: Status: Active Protocol: WC.[place] Activity Type Activity Date Activity User E-Sign Co-Sign Detail Recorded Client Recorded Date Recorded By Document 11/24/20 08:19 KR [id number] 11/24/20 08:29 KR Document 12/01/20 09:24 MW Desktop 12/01/20 09:37 MW 11/24/20 12/01/20 08:19 09:24 - Today's Visit Information Type of service Initial Visit Follow-up 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 ) Arrival Mode Ambulatory Ambulatory Transfer Assistance None Accompanied by self Patient Identification Verified (Name & Yes Yes ) Patient Requires Transmission-Based No Precautions Safety Precautions Fall Prevention Height and Weight Body Mass Index (BMI) 29.7 29.7 BMI Classification Overweight Overweight Vital Signs Temperature (97.8 F-99.1 F) 97.3 F L 97.4 F L Temperature Source Temporal Temporal Pulse Rate (60-100) 83 85 Pulse Location Monitor Monitor Respiratory Rate (12-18) 16 Respiratory rate source Observation Oxygen Delivery Method Room Air Blood Pressure (90/60-120/80) 155/86 H 152/85 H Blood Pressure Mean 109 107 Source Monitor Monitor Position Semi-Fowlers Sitting Blood Pressure Location Left Arm Right Arm History Since Last Visit- (Skip if this is Patient's initial visit) Have you changed medications since your No No last visit? Any new allergies or adverse reactions No No Had a fall/change in ADL's that may No No increase risk of falls Signs or symptoms of abuse and/or No No neglect since last visit Have you been in the hospital since your No No last visit? Has dressing in place as prescribed Yes Yes Has compression in place as prescribed N/A N/A Has offloadiing in place as prescribed N/A N/A Experienced any changes in pain level or No No management Left Footwear Regular Shoe Regular Shoe Right Footwear Regular Shoe Other Footwear right prosthstetic Pain Scale: 0-10 Numeric Is Patient Pain Free? Yes No WC - Nurse 1 - General Ulcer Measurement Start: 11/24/20 08:17 Freq: Status: Active Protocol: Activity Type Activity Date Activity User E-Sign Co-Sign Detail Recorded Client Recorded Date Recorded By Document 11/24/20 08:19 KR [id number] 11/24/20 08:29 KR Document 12/01/20 09:24 MW Desktop 12/01/20 09:37 MW 11/24/20 12/01/20 08:19 09:24 Wound Center Nurse 1 # 10 Right Groin -Combined with other wound No -Current Size (cm) - Length 0.4 0.3 -Current Size (cm) - Width 0.4 0.3 -Current Size (cm) - Depth 0.2 0.1 -Total Square Cm 0.16 0.09 -Photo Taken No -Epithelialization None Present -Tunneling No -Undermining/Tunneling No -Circular Undermining No -Exudate Amt Small Small -Exudate Type Serosanguineous Serosanguineous -Wound Margin Distinct, Thickened Outline Attached -Granulation Amt Medium (34-66%) Small (1-33%) -Granulation Quality [place] Pale -Slough/Fibrin Yes -Necrosis Amt None Present (0 Medium (34-66%) %) -Necrotic Tissue Type Adherent Slough -Structure Exposed Fat Layer Exposed -Texture (Blanche-wound Skin Appearance) Assessed, Assessed,Callus Scarring ,Scarring -Moisture (Blanche-wound Skin Appearance) No Abnormality, No Abnormality, Assessed Assessed -Color (Blanche-wound Skin Appearance) No Abnormality, No Abnormality, Assessed Assessed -Temperature (Blanche-wound Skin No Abnormality No Abnormality Appearance) (Pt Warm) (Pt Warm) -Tenderness on Palpation (Blanche-wound No Yes Skin Appearance) -Ulcer Cleansing Rinsed/ Rinsed/ Irrigated with Irrigated with Saline Saline -Foul Odor after Cleansing No No -Anesthetic Used 4% Lidocaine 4% Lidocaine Solution Solution Lower Limb Edema Present No WC - Nurse 2 - General Ulcer CM Notes Start: 11/24/20 08:17 Freq: Status: Active Protocol: Activity Type Activity Date Activity User E-Sign Co-Sign Detail Recorded Client Recorded Date Recorded By Document 11/24/20 12:29 PL [id number] 11/24/20 12:30 PL Document 12/01/20 12:17 PL [id number] 12/01/20 12:18 PL 11/24/20 12/01/20 12:29 12:17 Wound Center Nurse 2 # 10 Right Groin -Time 08:43 10:01 -Correct Patient Yes Yes -Correct Side, Site, Position Yes Yes -Correct Procedure Yes Yes -Procedure Performed Yes Yes -Type of Procedure Debridement Debridement -Clinical Debridement Subcutaneous Subcutaneous -Tissue Removed Subcutaneous Subcutaneous -Post Debridement (cm) - Length 0.4 0.3 -Post Debridement (cm) - Width 0.4 0.3 -Post Debridement (cm) - Depth 0.2 0.1 -Total Square (Post) (cm) 0.16 0.09 -Area of Debridement (cm) - Length 0.4 0.3 -Area of Debridement (cm) - Width 0.4 0.3 -Total Square (Area) (cm) 0.16 0.09 -Tunneling No No -Undermining/Tunneling No No -Circular Undermining No No -Wound/Ulcer Outcome Not Healed Not Healed -Ulcer Cleansing Rinsed/ Rinsed/ Irrigated with Irrigated with Saline Saline -Foul Odor after Cleansing No No -Bioengineered Tissue No No -Bleeding Controlled with Pressure -Treatment Response Procedure Tolerated Well -Debridement - Subq, 1st 20sq cm Yes Yes Pain Scale: 0-10 Numeric Is Patient Pain Free? Yes Yes WC - Nurse 3 - General Ulcer D/C NN Start: 11/24/20 08:17 Freq: Status: Active Protocol: Activity Type Activity Date Activity User E-Sign Co-Sign Detail Recorded Client Recorded Date Recorded By Document 11/24/20 08:50 KR [id number] 11/24/20 08:51 KR Document 12/01/20 10:18 MW [id number] 12/01/20 10:20 MW 11/24/20 12/01/20 08:50 10:18 Wound Care Nurse 3 # 10 Right Groin -Ulcer Cleansing Rinsed/ Rinsed/ Irrigated with Irrigated with Saline Saline -Foul Odor after Cleansing No -Negative Pressure Wound Therapy N/A -Primary Dressing Applied Fibracol Plus 4x4 -Other Dressing fibracol plus -Primary Dressing Covered/Secured with Dry Gauze, Dry Gauze, Secured with Secured with Tape Tape -Fibracol Plus 4x4 1 Treatment Response Procedure Tolerated Well Pain Scale: 0-10 Numeric Is Patient Pain Free? Yes Yes Teaching: Wound Center Dressing Your Wound -Person Taught Patient -Teaching Method Demonstration -Response to teaching Verbalize understanding WC - Visit Discharge Discharge Condition Stable Stable Ambulatory Status Ambulatory Ambulatory Transportation Private Auto Private Auto Accompanied by self Medication Reconcilliation completed & No provided to patient/care provider Clinical Summary of Care Provided Yes Wound debrided: Right groin Laterality: Right Type of Debridement: Excisional debridement Anesthesia Used: 5% Lidocaine Gel Depth: Down to and including healthy tissue and in the subcutaneous layer Percentage of wound debrided: 100 Instrument Used: 3mm curette Severity: Fat Layer Exposed Amount of bleeding with debridement: Mild Bleeding Controlled with: Compression and gauze Patient tolerated procedure: Patient tolerated procedure well Assessment/Plan Assessment/Plan (1) soft tissue radiation injury: (2) Soft tissue radionecrosis: CODE(S): L59.8 - Other specified disorders of the skin and subcutaneous tissue related to radiation; Y84.2 - Radiological procedure and radiotherapy as the cause of abnormal reaction of the patient, or of later complication, without mention of misadventure at the time of the procedure (3) Ulcer of right groin: CODE(S): L98.499 - Non-pressure chronic ulcer of skin of other sites with unspecified severity QUALIFIERS: Non-pressure ulcer stage: with fat layer exposed (4) History of melanoma: CODE(S): Z85.820 - Personal history of malignant melanoma of skin (5) Overweight (BMI 25.0-29.9): CODE(S): E66.3 - Overweight (6) History of uterine cancer: CODE(S): Z85.42 - Personal history of malignant neoplasm of other parts of uterus (7) Hyperlipidemia: CODE(S): E78.5 - Hyperlipidemia, unspecified (8) GERD (gastroesophageal reflux disease): CODE(S): K21.9 - Gastro-esophageal reflux disease without esophagitis (9) Obesity (BMI 30.0-34.9): CODE(S): E66.9 - Obesity, unspecified (10) Amputee, above knee: CODE(S): Z89.619 - Acquired absence of unspecified leg above knee PLAN: ?This is a 65-year-old female with a complex past medical history, much of which has been detailed above.? She presented with a recurrence of her right groin ulceration, secondary to soft tissue radiation injury.? The patient has been treated at our facility numerous times in the past.? Her current ulceration recurred approximately 1 week prior to her presentation.? We are to continue conservative treatment measures, which have proven to be successful previously.? These are to include the use of Fibracol, applied by the patient on a daily basis.? Serial weekly debridements are anticipated.? The patient has been instructed to keep the area clean and dry, as its location in an intertriginous zone subjects the ulceration to body heat and perspiration.? The patient is to return in 1 week for reassessment. Total time: 25 minutes.
== END 2020-12-07 23:59 ==
LOC: WC 09:15
PROVIDERS: PCP Family Medicine; Visit Provider Surgery
DX: L59.8 Other specified disorders of the skin and subcutaneous tissue related to radiation (principal); Y84.2 Radiological procedure and radiotherapy as the cause of abnormal reaction of the patient, or of later complication, without mention of misadventure at the time of the procedure; L98.492 Non-pressure chronic ulcer of skin of other sites with fat layer exposed; Z86.14 Personal history of Methicillin resistant Staphylococcus aureus infection; Z89.611 Acquired absence of right leg above knee; Z85.820 Personal history of malignant melanoma of skin; E78.5 Hyperlipidemia, unspecified; K21.9 Gastro-esophageal reflux disease without esophagitis; Z85.42 Personal history of malignant neoplasm of other parts of uterus; Z87.891 Personal history of nicotine dependence; E66.9 Obesity, unspecified; Z68.30 Body mass index [BMI] 30.0-30.9, adult
CPT/HCPCS: 11042; 99213; G0463

== ENCOUNTER 2021-01-05 09:15 | Outpatient (RCR) | payer MEDICARE, OTHER, SELFPAY ==
[2020-12-08 00:43] VITALS: BP 152/85; PULSE 85; RESP 16; TEMP 36.3
[2020-12-08 09:17] VITALS: BP 156/88; PULSE 81; TEMP 35.7; BMI 29.7
--- NOTE | 2020-12-08 12:52 | HP.PCM_ITS ---
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 The patient was diagnosed with melanoma of the right calf in the 1969's. 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 The patient underwent excision of her melanoma with lymphadenectomy in the right groin. She also underwent lengthy radiation treatments at the [facility] in [place], [place]. Melanoma recurred, and the patient was subsequently treated with monoclonal antibodies in 1984. 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 Treatment included local ulcer care and hyperbaric oxygen therapy. She underwent a total of nearly 90 treatments of hyperbaric oxygen therapy. It is known that she tolerated the therapies well, and derived significant benefit. 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 She has also undergone several sessions of hyperbaric oxygen therapy. She is also received a series of 10 EpiFix allografts in the course of previous treatment. Each of the patient's prior courses of treatment in our facility have been protracted, with difficulties encountered in achieving complete healing. Her most recent course of treatment ended with successful healing and discharge in August 2020. The patient presents at this time with a recurrence of her right groin ulceration, again thought to be secondary to soft tissue radiation injury. The ulceration recurred spontaneously approximately 1 week prior to her presentation. The patient indicates that her health history has not changed since she was last treated in our facility. [facility] Home Medications famotidine 20 mg PO 06/20/17 [History Last Taken Unknown] pravastatin 20 mg PO DAILY 06/20/17 [History Last Taken Unknown] Allergy/AdvReac Type Severity Reaction Status Date / Time No Known Allergies Allergy Verified 05/26/20 09:19 Social History Smoking Status: Former smoker ROS Constitutional Constitutional: Denies anorexia, change in weight, chills, fever(s), malaise or night sweats Eyes Eyes: Denies change in vision, double vision or eye pain ENT HEENT: Denies dysphagia, epistaxis, headache(s), hearing loss, sinus pain, sinus pressure or sore throat Cardiovascular Cardiovascular: Denies chest pain or palpitations Respiratory/Chest Respiratory/Chest: Denies pain on inspiration, shortness of breath at rest or wheezing Gastrointestinal Gastrointestinal: Denies abdominal pain, hematemesis, hematochezia or nausea Genitourinary Genitourinary: Denies dysuria or hematuria Musculoskeletal Musculoskeletal: Denies loss of height Neurologic Neurologic: Denies headache(s), loss of vision or seizures Endocrine Endocrinology: Denies polyuria Vital Signs Vital Signs Vital Signs: 12/08/20 00:43 12/08/20 09:17 Temperature 97.4 F L 96.2 F L Temperature Source Temporal Pulse Rate 85 81 Respiratory Rate 16 Blood Pressure 152/85 H 156/88 H Blood Pressure Mean 107 110 Blood Pressure Source Monitor Blood Pressure Position Semi-Fowlers Blood Pressure Location Right Arm Right Arm Weight Body Mass Index (BMI) 29.7 Physical Exam Const alert, oriented x3, no apparent distress and well nourished General Appearance: cooperative, comfortable, well kempt and well developed Orientation / Consciousness: awake, oriented to person, oriented to place and oriented to time HEENT normocephalic and head/scalp atraumatic Head and Scalp: normal to inspection, normocephalic and atraumatic External Ear: external ears normal Eyes PERRL and EOMs intact bilaterally Resp normal respiratory effort and no use of accessory muscles Effort and Inspection: able to speak in complete sentences Extremity no calf tenderness Extremity Narrative: A well-healed right above-knee amputation stump is noted. General Extremity: Negative for clubbing or cyanosis Skin Wound Narrative: The wound in the right groin persists, and is little changed in appearance. It remains small and superficial. Dimensions are documented elsewhere. There is no sign of infection or cellulitis. There is a small amount of bioburden. Neuro oriented x3, CN's II-XII intact bilaterally and moves all extremities Psych Appearance: grossly normal, appropriate and well kempt Attitude: calm and engaged Activity / Motor Behavior: appropriate eye contact Speech: normal speech Thought Process: normal thought process Attention / Concentration: attention grossly intact Debridement Note Debridement Note Post-Debridement Measurements and Additional Note: Post-Debridement Measurements/Treatment KISHA - Nurse 1 - General Ulcer Assessment Start: 12/08/20 09:16 Freq: Status: Active Protocol: MICHAEL Activity Type Activity Date Activity User E-Sign Co-Sign Detail Recorded Client Recorded Date Recorded By Document 12/08/20 09:17 KR [id number] 12/08/20 09:20 SONNY 12/08/20 09:17 - Today's Visit Information Type of service Follow-up 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/VERTICA ARCHITECT ) Arrival Mode Ambulatory Patient Identification Verified (Name & Yes ) Height and Weight Body Mass Index (BMI) 29.7 BMI Classification Overweight Vital Signs Temperature (97.8 F-99.1 F) 96.2 F L Temperature Source Temporal Pulse Rate (60-100) 81 Pulse Location Monitor Blood Pressure (90/60-120/80) 156/88 H Blood Pressure Mean 110 Source Monitor Position Semi-Fowlers Blood Pressure Location Right Arm History Since Last Visit- (Skip if this is Patient's initial visit) Have you changed medications since your No last visit? Any new allergies or adverse reactions No Had a fall/change in ADL's that may No increase risk of falls Signs or symptoms of abuse and/or No neglect since last visit Have you been in the hospital since your No last visit? Has dressing in place as prescribed Yes Has compression in place as prescribed N/A Has offloadiing in place as prescribed N/A Experienced any changes in pain level or No management Left Footwear Regular Shoe Right Footwear Regular Shoe Pain Scale: 0-10 Numeric Is Patient Pain Free? Yes - Nurse 1 - General Ulcer Measurement Start: 12/08/20 09:16 Freq: Status: Active Protocol: Activity Type Activity Date Activity User E-Sign Co-Sign Detail Recorded Client Recorded Date Recorded By Document 12/08/20 09:17 SONNY [id number] 12/08/20 09:20 SONNY 12/08/20 09:17 Wound Center Nurse 1 # 10 Right Groin -Current Size (cm) - Length 0.4 -Current Size (cm) - Width 0.4 -Current Size (cm) - Depth 0.1 -Total Square Cm 0.16 -Exudate Amt Small -Exudate Type Serosanguineous -Wound Margin Distinct, Outline Attached -Granulation Amt Small (1-33%) -Granulation Quality Red -Necrosis Amt Small (1-33%) -Necrotic Tissue Type Adherent Slough -Texture (Blanche-wound Skin Appearance) Assessed, Scarring -Moisture (Blanche-wound Skin Appearance) Assessed -Color (Blanche-wound Skin Appearance) No Abnormality, Assessed -Temperature (Blanche-wound Skin No Abnormality Appearance) (Pt Warm) -Tenderness on Palpation (Blanche-wound No Skin Appearance) -Ulcer Cleansing Rinsed/ Irrigated with Saline -Foul Odor after Cleansing No -Anesthetic Used 5% Lidocaine Gel WC - Nurse 2 - General Ulcer CM Notes Start: 12/08/20 09:16 Freq: Status: Active Protocol: Activity Type Activity Date Activity User E-Sign Co-Sign Detail Recorded Client Recorded Date Recorded By Document 12/08/20 12:38 HITESH [id number] 12/08/20 12:39 HITESH 12/08/20 12:38 Wound Center Nurse 2 -Time 09:40 -Correct Patient Yes -Correct Side, Site, Position Yes -Correct Procedure Yes -Procedure Performed Yes -Type of Procedure Debridement -Clinical Debridement Subcutaneous -Tissue Removed Subcutaneous -Post Debridement (cm) - Length 0.4 -Post Debridement (cm) - Width 0.4 -Post Debridement (cm) - Depth 0.1 -Total Square (Post) (cm) 0.16 -Area of Debridement (cm) - Length 0.4 -Area of Debridement (cm) - Width 0.4 -Total Square (Area) (cm) 0.16 -Tunneling No -Undermining/Tunneling No -Circular Undermining No -Wound/Ulcer Outcome Not Healed -Ulcer Cleansing Rinsed/ Irrigated with Saline -Foul Odor after Cleansing No -Bioengineered Tissue No -Debridement - Subq, 1st 20sq cm Yes Pain Scale: 0-10 Numeric Is Patient Pain Free? Yes - Nurse 3 - General Ulcer D/C NN Start: 12/08/20 09:16 Freq: Status: Active Protocol: Activity Type Activity Date Activity User E-Sign Co-Sign Detail Recorded Client Recorded Date Recorded By Document 12/08/20 09:56 SONNY [id number] 12/08/20 09:57 KR 12/08/20 09:56 Wound Care Nurse 3 # 10 Right Groin -Primary Dressing Applied Fibracol Plus 4x4 -Primary Dressing Covered/Secured with Dry Gauze -Fibracol Plus 4x4 1 Pain Scale: 0-10 Numeric Is Patient Pain Free? Yes WC - Visit Discharge Discharge Condition Stable Ambulatory Status Ambulatory Transportation Private Auto Wound debrided: Right groin Laterality: Right Type of Debridement: Excisional debridement Anesthesia Used: 5% Lidocaine Gel Depth: Down to and including healthy tissue and in the subcutaneous layer Percentage of wound debrided: 100 Instrument Used: 3mm curette Tissue Removed: Bioburden Severity: Fat Layer Exposed Amount of bleeding with debridement: Mild Bleeding Controlled with: Compression and gauze Patient tolerated procedure: Patient tolerated procedure well Assessment/Plan Assessment/Plan (1) Ulcer of right groin: CODE(S): L98.499 - Non-pressure chronic ulcer of skin of other sites with unspecified severity QUALIFIERS: Non-pressure ulcer stage: with fat layer exposed (2) Soft tissue radionecrosis: CODE(S): 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 - Other specified disorders of the skin and subcutaneous tissue related to radiation; Y84.2 - Radiological procedure and radiotherapy as the cause of abnormal reaction of the patient, or of later complication, without mention of misadventure at the time of the procedure (3) soft tissue radiation injury: (4) History of melanoma: CODE(S): Z85.820 - Personal history of malignant melanoma of skin (5) Overweight (BMI 25.0-29.9): CODE(S): E66.3 - Overweight (6) History of uterine cancer: CODE(S): Z85.42 - Personal history of malignant neoplasm of other parts of uterus (7) Hyperlipidemia: CODE(S): E78.5 - Hyperlipidemia, unspecified (8) GERD (gastroesophageal reflux disease): CODE(S): K21.9 - Gastro-esophageal reflux disease without esophagitis (9) Obesity (BMI 30.0-34.9): CODE(S): E66.9 - Obesity, unspecified (10) Amputee, above knee: CODE(S): Z89.619 - Acquired absence of unspecified leg above knee PLAN: This is a 65-year-old female with a complex past medical history, much of which has been detailed above. She presented with a recurrence of her right groin ulceration, secondary to soft tissue radiation injury. The patient has been treated at our facility numerous times in the past. Her current ulceration recurred approximately 1 week prior to her presentation. We are to continue conservative treatment measures, which have proven to be successful previously. These are to include the use of Fibracol, applied by the patient on a daily basis. Serial weekly debridements are anticipated. The patient has been instructed to keep the area clean and dry, as its location in an intertriginous zone subjects the ulceration to body heat and perspiration. The patient is to return in 1 week for reassessment. Total time: 26 minutes.
[2020-12-22 09:31] VITALS: BP 125/78; PULSE 69; TEMP 35.9; BMI 29.7
--- NOTE | 2020-12-22 11:55 | HP.PCM_ITS ---
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 The patient was diagnosed with melanoma of the right calf in the 1969's. 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 The patient underwent excision of her melanoma with lymphadenectomy in the right groin. She also underwent lengthy radiation treatments at the [facility] in [place], [place]. Melanoma recurred, and the patient was subsequently treated with monoclonal antibodies in 1984. 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 Treatment included local ulcer care and hyperbaric oxygen therapy. She underwent a total of nearly 90 treatments of hyperbaric oxygen therapy. It is known that she tolerated the therapies well, and derived significant benefit. 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 She has also undergone several sessions of hyperbaric oxygen therapy. She is also received a series of 10 EpiFix allografts in the course of previous treatment. Each of the patient's prior courses of treatment in our facility have been protracted, with difficulties encountered in achieving complete healing. Her most recent course of treatment ended with successful healing and discharge in August 2020. The patient presented at this time with a recurrence of her right groin ulceration, again thought to be secondary to soft tissue radiation injury. The ulceration recurred spontaneously approximately 1 week prior to her presentation. The patient indicates that her health history has not changed since she was last treated in our facility. [facility] Home Medications famotidine 20 mg PO 06/20/17 [History Last Taken Unknown] pravastatin 20 mg PO DAILY 06/20/17 [History Last Taken Unknown] Allergy/AdvReac Type Severity Reaction Status Date / Time No Known Allergies Allergy Verified 05/26/20 09:19 Social History Smoking Status: Former smoker Vital Signs Vital Signs Vital Signs: 12/22/20 09:31 Temperature 96.6 F L Temperature Source Temporal Pulse Rate 69 Blood Pressure 125/78 H Blood Pressure Mean 93 Blood Pressure Source Monitor Blood Pressure Position Semi-Fowlers Blood Pressure Location Left Arm Weight Body Mass Index (BMI) 29.7 Physical Exam Const alert, oriented x3, no apparent distress and well nourished General Appearance: cooperative, comfortable, well kempt and well developed Orientation / Consciousness: awake, oriented to person, oriented to place and oriented to time HEENT normocephalic and head/scalp atraumatic Head and Scalp: normal to inspection, normocephalic and atraumatic Face and Sinus: normal facial exam Nose: external nose normal External Ear: external ears normal Eyes PERRL and EOMs intact bilaterally General Eye: normal appearance of both eyes Resp normal respiratory effort and no use of accessory muscles Effort and Inspection: able to speak in complete sentences Extremity no calf tenderness Extremity Narrative: A well-healed right above-knee amputation stump is noted. General Extremity: Negative for clubbing or cyanosis Skin Wound Narrative: The wound in the right groin persists. It is little changed in size or appearance. It is quite small in size, only several millimeters in diameter. Dimensions are documented elsewhere. There is a small amount of bioburden. There is no sign of infection or cellulitis. Neuro oriented x3, CN's II-XII intact bilaterally and moves all extremities Psych Appearance: grossly normal, appropriate and well kempt Attitude: calm and engaged Activity / Motor Behavior: appropriate eye contact Speech: normal speech Mood & Affect: euthymic mood Thought Process: normal thought process Attention / Concentration: attention grossly intact Debridement Note Debridement Note Post-Debridement Measurements and Additional Note: Post-Debridement Measurements/Treatment [facility] Nurse 1 - General Ulcer Assessment Start: 12/08/20 09:16 Freq: Status: Active Protocol: KISHA.XOCHITL Activity Type Activity Date Activity User E-Sign Co-Sign Detail Recorded Client Recorded Date Recorded By Document 12/08/20 09:17 SONNY [id number] 12/08/20 09:20 KR Document 12/22/20 09:31 KR [id number] 12/22/20 09:32 KR 12/08/20 12/22/20 09:17 09:31 - Today's Visit Information Type of service Follow-up Visit Follow-up 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/ELECTRIC DRILL OPERATOR (Physician/ELECTRIC DRILL OPERATOR ) ) Arrival Mode Ambulatory Ambulatory Patient Identification Verified (Name & Yes Yes ) Height and Weight Body Mass Index (BMI) 29.7 29.7 BMI Classification Overweight Overweight Vital Signs Temperature (97.8 F-99.1 F) 96.2 F L 96.6 F L Temperature Source Temporal Temporal Pulse Rate (60-100) 81 69 Pulse Location Monitor Monitor Blood Pressure (90/60-120/80) 156/88 H 125/78 H Blood Pressure Mean 110 93 Source Monitor Monitor Position Semi-Fowlers Semi-Fowlers Blood Pressure Location Right Arm Left Arm History Since Last Visit- (Skip if this is Patient's initial visit) Have you changed medications since your No No last visit? Any new allergies or adverse reactions No No Had a fall/change in ADL's that may No No increase risk of falls Signs or symptoms of abuse and/or No No neglect since last visit Have you been in the hospital since your No No last visit? Has dressing in place as prescribed Yes Yes Has compression in place as prescribed N/A N/A Has offloadiing in place as prescribed N/A N/A Experienced any changes in pain level or No No management Left Footwear Regular Shoe Right Footwear Regular Shoe Pain Scale: 0-10 Numeric Is Patient Pain Free? Yes Yes WC - Nurse 1 - General Ulcer Measurement Start: 12/08/20 09:16 Freq: Status: Active Protocol: Activity Type Activity Date Activity User E-Sign Co-Sign Detail Recorded Client Recorded Date Recorded By Document 12/08/20 09:17 KR [id number] 12/08/20 09:20 KR Document 12/22/20 09:31 KR [id number] 12/22/20 09:32 KR 12/08/20 12/22/20 09:17 09:31 Wound Center Nurse 1 # 10 Right Groin -Current Size (cm) - Length 0.4 0.3 -Current Size (cm) - Width 0.4 0.2 -Current Size (cm) - Depth 0.1 0.1 -Total Square Cm 0.16 0.06 -Exudate Amt Small Small -Exudate Type Serosanguineous Serosanguineous -Wound Margin Distinct, Distinct, Outline Outline Attached Attached -Granulation Amt Small (1-33%) Small (1-33%) -Granulation Quality Red [place] -Necrosis Amt Small (1-33%) -Necrotic Tissue Type Adherent Slough -Texture (Blanche-wound Skin Appearance) Assessed, Assessed, Scarring Scarring -Moisture (Blanche-wound Skin Appearance) Assessed No Abnormality, Assessed -Color (Blanche-wound Skin Appearance) No Abnormality, No Abnormality, Assessed Assessed -Temperature (Blanche-wound Skin No Abnormality No Abnormality Appearance) (Pt Warm) (Pt Warm) -Tenderness on Palpation (Blanche-wound No No Skin Appearance) -Ulcer Cleansing Rinsed/ Rinsed/ Irrigated with Irrigated with Saline Saline -Foul Odor after Cleansing No No -Anesthetic Used 5% Lidocaine 4% Lidocaine Gel Solution WC - Nurse 2 - General Ulcer CM Notes Start: 12/08/20 09:16 Freq: Status: Active Protocol: Activity Type Activity Date Activity User E-Sign Co-Sign Detail Recorded Client Recorded Date Recorded By Document 12/08/20 12:38 HITESH [id number] 12/08/20 12:39 PL 12/08/20 12:38 Wound Center Nurse 2 -Time 09:40 -Correct Patient Yes -Correct Side, Site, Position Yes -Correct Procedure Yes -Procedure Performed Yes -Type of Procedure Debridement -Clinical Debridement Subcutaneous -Tissue Removed Subcutaneous -Post Debridement (cm) - Length 0.4 -Post Debridement (cm) - Width 0.4 -Post Debridement (cm) - Depth 0.1 -Total Square (Post) (cm) 0.16 -Area of Debridement (cm) - Length 0.4 -Area of Debridement (cm) - Width 0.4 -Total Square (Area) (cm) 0.16 -Tunneling No -Undermining/Tunneling No -Circular Undermining No -Wound/Ulcer Outcome Not Healed -Ulcer Cleansing Rinsed/ Irrigated with Saline -Foul Odor after Cleansing No -Bioengineered Tissue No -Debridement - Subq, 1st 20sq cm Yes Pain Scale: 0-10 Numeric Is Patient Pain Free? Yes KISHA - Nurse 3 - General Ulcer D/C NN Start: 12/08/20 09:16 Freq: Status: Active Protocol: Activity Type Activity Date Activity User E-Sign Co-Sign Detail Recorded Client Recorded Date Recorded By Document 12/08/20 09:56 KR [id number] 12/08/20 09:57 KR Document 12/22/20 10:06 KR [id number] 12/22/20 10:07 KR 12/08/20 12/22/20 09:56 10:06 Wound Care Nurse 3 # 10 Right Groin -Primary Dressing Applied Fibracol Plus 4x4 -Primary Dressing Covered/Secured with Dry Gauze Secured with Tape -Fibracol Plus 4x4 1 Pain Scale: 0-10 Numeric Is Patient Pain Free? Yes Yes WC - Visit Discharge Discharge Condition Stable Stable Ambulatory Status Ambulatory Ambulatory Transportation Private Auto Private Auto Wound debrided: Right groin Laterality: Right Type of Debridement: Excisional debridement Anesthesia Used: 5% Lidocaine Gel Depth: Down to and including healthy tissue and in the subcutaneous layer Percentage of wound debrided: 100 Instrument Used: 3mm curette Tissue Removed: Bioburden Severity: Fat Layer Exposed Amount of bleeding with debridement: Mild Bleeding Controlled with: Compression and gauze Patient tolerated procedure: Patient tolerated procedure well Assessment/Plan Assessment/Plan (1) Soft tissue radionecrosis: CODE(S): L59.8 - Other specified disorders of the skin and subcutaneous tissue related to radiation; Y84.2 - Radiological procedure and radiotherapy as the cause of abnormal reaction of the patient, or of later complication, without mention of misadventure at the time of the procedure (2) soft tissue radiation injury: (3) Overweight (BMI 25.0-29.9): CODE(S): E66.3 - Overweight (4) History of uterine cancer: CODE(S): Z85.42 - Personal history of malignant neoplasm of other parts of uterus (5) History of melanoma: CODE(S): Z85.820 - Personal history of malignant melanoma of skin (6) Hyperlipidemia: CODE(S): E78.5 - Hyperlipidemia, unspecified (7) GERD (gastroesophageal reflux disease): CODE(S): K21.9 - Gastro-esophageal reflux disease without esophagitis (8) Ulcer of right groin: CODE(S): L98.499 - Non-pressure chronic ulcer of skin of other sites with unspecified severity QUALIFIERS: Non-pressure ulcer stage: with fat layer exposed (9) Obesity (BMI 30.0-34.9): CODE(S): E66.9 - Obesity, unspecified (10) Amputee, above knee: CODE(S): Z89.619 - Acquired absence of unspecified leg above knee PLAN: This is a 65-year-old female with a complex past medical history, much of which has been detailed above. She presented with a recurrence of her right groin ulceration, secondary to soft tissue radiation injury. The patient has been treated at our facility numerous times in the past. Her current ulceration recurred approximately 1 week prior to her presentation. We are to continue conservative treatment measures, which have proven to be successful previously. These are to include the use of Fibracol, applied by the patient on a daily basis. Serial weekly debridements are anticipated. The patient has been instructed to keep the area clean and dry, as its location in an intertriginous zone subjects the ulceration to body heat and perspiration. Nutritional optimization has been recommended. The patient is to return in 1 week for reassessment. Total time: 27 minutes.
[2020-12-29 09:27] VITALS: BP 142/81; PULSE 85; RESP 16; TEMP 36.1; BMI 29.7
--- NOTE | 2020-12-29 13:16 | HP.PCM_ITS ---
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 The patient was diagnosed with melanoma of the right calf in the 1969's. 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 The patient underwent excision of her melanoma with lymphadenectomy in the right groin. She also underwent lengthy radiation treatments at the [facility] in [place], [place]. Melanoma recurred, and the patient was subsequently treated with monoclonal antibodies in 1984. 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 Treatment included local ulcer care and hyperbaric oxygen therapy. She underwent a total of nearly 90 treatments of hyperbaric oxygen therapy. It is known that she tolerated the therapies well, and derived significant benefit. 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 She has also undergone several sessions of hyperbaric oxygen therapy. She is also received a series of 10 EpiFix allografts in the course of previous treatment. Each of the patient's prior courses of treatment in our facility have been protracted, with difficulties encountered in achieving complete healing. Her most recent course of treatment ended with successful healing and discharge in August 2020. The patient presented at this time with a recurrence of her right groin ulceration, again thought to be secondary to soft tissue radiation injury. The ulceration recurred spontaneously approximately 1 week prior to her presentation. The patient indicates that her health history has not changed since she was last treated in our facility. [facility] Home Medications famotidine 20 mg PO 06/20/17 [History Last Taken Unknown] pravastatin 20 mg PO DAILY 06/20/17 [History Last Taken Unknown] Allergy/AdvReac Type Severity Reaction Status Date / Time No Known Allergies Allergy Verified 05/26/20 09:19 Social History Smoking Status: Former smoker Vital Signs Vital Signs Vital Signs: 12/29/20 09:27 Temperature 97.0 F L Temperature Source Temporal Pulse Rate 85 Respiratory Rate 16 Blood Pressure 142/81 H Blood Pressure Mean 101 Blood Pressure Source Monitor Blood Pressure Position Sitting Blood Pressure Location Right Arm Oxygen Delivery Method Room Air Weight Body Mass Index (BMI) 29.7 Physical Exam Const alert, oriented x3, no apparent distress and well nourished General Appearance: cooperative, comfortable, well kempt and well developed Orientation / Consciousness: awake, oriented to person, oriented to place and oriented to time HEENT normocephalic and head/scalp atraumatic Head and Scalp: normal to inspection, normocephalic and atraumatic External Ear: external ears normal Eyes PERRL and EOMs intact bilaterally General Eye: normal appearance of both eyes Resp normal respiratory effort, normal air movement, no retractions and no use of accessory muscles Effort and Inspection: able to speak in complete sentences Extremity no calf tenderness Extremity Narrative: A well-healed right above-knee amputation stump is noted General Extremity: Negative for clubbing or cyanosis Skin Wound Narrative: The wound persists in the patient's right groin. It is little changed in appearance. It is small in size, and relatively superficial. Dimensions are documented elsewhere. There is a small amount of bioburden. There is no sign of infection or cellulitis. Neuro oriented x3, CN's II-XII intact bilaterally and moves all extremities Sensorium / Orientation: awake, alert, oriented to person, oriented to place and oriented to time Psych mental status grossly normal Appearance: grossly normal, appropriate and well kempt Attitude: calm and engaged Activity / Motor Behavior: appropriate eye contact Speech: normal speech Mood & Affect: euthymic mood Thought Process: normal thought process Debridement Note Debridement Note Post-Debridement Measurements and Additional Note: Post-Debridement Measurements/Treatment WC - Nurse 1 - General Ulcer Assessment Start: 12/08/20 09:16 Freq: Status: Active Protocol: MICHAEL Activity Type Activity Date Activity User E-Sign Co-Sign Detail Recorded Client Recorded Date Recorded By Document 12/08/20 09:17 KR [id number] 12/08/20 09:20 KR Document 12/22/20 09:31 KR [id number] 12/22/20 09:32 KR Document 12/29/20 09:27 MW [id number] 12/29/20 09:33 MW 06/07/3012/22/20 12/29/20 09:17 09:31 09:27 - Today's Visit Information Type of service Follow-up Visit Follow-up Visit Follow-up 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/COMMERCIAL REAL ESTATE ATTORNEY (Physician/COMMERCIAL REAL ESTATE ATTORNEY (Physician/COMMERCIAL REAL ESTATE ATTORNEY ) ) ) Arrival Mode Ambulatory Ambulatory Ambulatory Transfer Assistance None Accompanied by self Patient Identification Verified (Name & Yes Yes Yes ) Patient Requires Transmission-Based No Precautions Safety Precautions NA Height and Weight Body Mass Index (BMI) 29.7 29.7 29.7 BMI Classification Overweight Overweight Overweight Vital Signs Temperature (97.8 F-99.1 F) 96.2 F L 96.6 F L 97.0 F L Temperature Source Temporal Temporal Temporal Pulse Rate (60-100) 81 69 85 Pulse Location Monitor Monitor Monitor Respiratory Rate (12-18) 16 Respiratory rate source Observation Oxygen Delivery Method Room Air Blood Pressure (90/60-120/80) 156/88 H 125/78 H 142/81 H Blood Pressure Mean 110 93 101 Source Monitor Monitor Monitor Position Semi-Fowlers Semi-Fowlers Sitting Blood Pressure Location Right Arm Left Arm Right Arm History Since Last Visit- (Skip if this is Patient's initial visit) Have you changed medications since your No No No last visit? Any new allergies or adverse reactions No No No Had a fall/change in ADL's that may No No No increase risk of falls Signs or symptoms of abuse and/or No No No neglect since last visit Have you been in the hospital since your No No No last visit? Has dressing in place as prescribed Yes Yes Yes Has compression in place as prescribed N/A N/A N/A Has offloadiing in place as prescribed N/A N/A N/A Experienced any changes in pain level or No No No management Left Footwear Regular Shoe Regular Shoe Right Footwear Regular Shoe Other Footwear (Comment) Other Footwear prosthesis RLE Pain Scale: 0-10 Numeric Is Patient Pain Free? Yes Yes Yes - Nurse 1 - General Ulcer Measurement Start: 12/08/20 09:16 Freq: Status: Active Protocol: Activity Type Activity Date Activity User E-Sign Co-Sign Detail Recorded Client Recorded Date Recorded By Document 12/08/20 09:17 SONNY [id number] 12/08/20 09:20 KR Document 12/22/20 09:31 KR [id number] 12/22/20 09:32 KR Document 12/29/20 09:27 MW [id number] 12/29/20 09:33 MW 12/08/20 12/22/20 12/29/20 09:17 09:31 09:27 Wound Center Nurse 1 # 10 Right Groin -Combined with other wound No -Current Size (cm) - Length 0.4 0.3 0.3 -Current Size (cm) - Width 0.4 0.2 0.3 -Current Size (cm) - Depth 0.1 0.1 0.1 -Total Square Cm 0.16 0.06 0.09 -Photo Taken No -Epithelialization None Present -Tunneling No -Undermining/Tunneling No -Circular Undermining No -Exudate Amt Small Small Small -Exudate Type Serosanguineous Serosanguineous Serosanguineous -Wound Margin Distinct, Distinct, Flat & Intact Outline Outline Attached Attached -Granulation Amt Small (1-33%) Small (1-33%) Small (1-33%) -Granulation Quality Red [place] -Slough/Fibrin Yes -Necrosis Amt Small (1-33%) Small (1-33%) -Necrotic Tissue Type Adherent Slough Adherent Slough -Structure Exposed N/A -Texture (Blanche-wound Skin Appearance) Assessed, Assessed, Assessed, Scarring Scarring Scarring -Moisture (Blanche-wound Skin Appearance) Assessed No Abnormality, No Abnormality, Assessed Assessed -Color (Blanche-wound Skin Appearance) No Abnormality, No Abnormality, No Abnormality, Assessed Assessed Assessed -Temperature (Blanche-wound Skin No Abnormality No Abnormality No Abnormality Appearance) (Pt Warm) (Pt Warm) (Pt Warm) -Tenderness on Palpation (Blanche-wound No No Yes Skin Appearance) -Ulcer Cleansing Rinsed/ Rinsed/ Rinsed/ Irrigated with Irrigated with Irrigated with Saline Saline Saline -Foul Odor after Cleansing No No No -Anesthetic Used 5% Lidocaine 4% Lidocaine 4% Lidocaine Gel Solution Solution Lower Limb Edema Present No WC - Nurse 2 - General Ulcer CM Notes Start: 12/08/20 09:16 Freq: Status: Active Protocol: Activity Type Activity Date Activity User E-Sign Co-Sign Detail Recorded Client Recorded Date Recorded By Document 12/08/20 12:38 PL [id number] 12/08/20 12:39 PL Document 12/22/20 12:38 PL [id number] 12/22/20 12:39 PL Document 12/29/20 11:45 PL [id number] 12/29/20 11:46 PL 12/08/20 12/22/20 12/29/20 12:38 12:38 11:45 Wound Center Nurse 2 # 10 Right Groin -Time 09:40 09:45 09:43 -Correct Patient Yes Yes Yes -Correct Side, Site, Position Yes Yes Yes -Correct Procedure Yes Yes Yes -Procedure Performed Yes Yes Yes -Type of Procedure Debridement Debridement Debridement -Clinical Debridement Subcutaneous Subcutaneous Subcutaneous -Tissue Removed Subcutaneous Subcutaneous Subcutaneous -Post Debridement (cm) - Length 0.4 0.3 0.3 -Post Debridement (cm) - Width 0.4 0.2 0.3 -Post Debridement (cm) - Depth 0.1 0.1 0.1 -Total Square (Post) (cm) 0.16 0.06 0.09 -Area of Debridement (cm) - Length 0.4 0.3 0.3 -Area of Debridement (cm) - Width 0.4 0.2 0.3 -Total Square (Area) (cm) 0.16 0.06 0.09 -Tunneling No No No -Undermining/Tunneling No No No -Circular Undermining No No No -Wound/Ulcer Outcome Not Healed Not Healed Not Healed -Ulcer Cleansing Rinsed/ Rinsed/ Rinsed/ Irrigated with Irrigated with Irrigated with Saline Saline Saline -Foul Odor after Cleansing No No No -Bioengineered Tissue No No No -Bleeding Controlled with Pressure -Treatment Response Procedure Tolerated Well -Debridement - Subq, 1st 20sq cm Yes Yes Yes Pain Scale: 0-10 Numeric Is Patient Pain Free? Yes Yes Yes WC - Nurse 3 - General Ulcer D/C NN Start: 12/08/20 09:16 Freq: Status: Active Protocol: Activity Type Activity Date Activity User E-Sign Co-Sign Detail Recorded Client Recorded Date Recorded By Document 12/08/20 09:56 KR [id number] 12/08/20 09:57 KR Document 12/22/20 10:06 KR [id number] 12/22/20 10:07 KR Document 12/29/20 09:52 MW [id number] 12/29/20 09:53 MW 12/08/20 12/22/20 12/29/20 09:56 10:06 09:52 Wound Care Nurse 3 # 10 Right Groin -Ulcer Cleansing Rinsed/ Irrigated with Saline -Foul Odor after Cleansing No -Negative Pressure Wound Therapy N/A -Primary Dressing Applied Fibracol Plus 4x4 -Other Dressing fibracol plus -Primary Dressing Covered/Secured with Dry Gauze Secured with Dry Gauze, Tape Secured with Tape -Fibracol Plus 4x4 1 Treatment Response Procedure Tolerated Well Pain Scale: 0-10 Numeric Is Patient Pain Free? Yes Yes Yes Teaching: Wound Center Dressing Your Wound -Person Taught Patient -Teaching Method Discussion, Demonstration -Response to teaching Verbalize understanding WC - Visit Discharge Discharge Condition Stable Stable Stable Ambulatory Status Ambulatory Ambulatory Ambulatory Transportation Private Auto Private Auto Private Auto Accompanied by self Medication Reconcilliation completed & No provided to patient/care provider Clinical Summary of Care Provided Yes Wound debrided: Right groin Laterality: Right Type of Debridement: Excisional debridement Anesthesia Used: 5% Lidocaine Gel Depth: Down to and including healthy tissue and in the subcutaneous layer Percentage of wound debrided: 100 Instrument Used: 3mm curette Tissue Removed: Bioburden Severity: Fat Layer Exposed Amount of bleeding with debridement: Mild Bleeding Controlled with: Compression and gauze Patient tolerated procedure: Patient tolerated procedure well Assessment/Plan Assessment/Plan (1) Ulcer of right groin: CODE(S): L98.499 - Non-pressure chronic ulcer of skin of other sites with unspecified severity QUALIFIERS: Non-pressure ulcer stage: with fat layer exposed (2) Soft tissue radionecrosis: CODE(S): L59.8 - Other specified disorders of the skin and subcutaneous tissue related to radiation; Y84.2 - Radiological procedure and radiotherapy as the cause of abnormal reaction of the patient, or of later complication, without mention of misadventure at the time of the procedure (3) soft tissue radiation injury: (4) Overweight (BMI 25.0-29.9): CODE(S): E66.3 - Overweight (5) History of uterine cancer: CODE(S): Z85.42 - Personal history of malignant neoplasm of other parts of uterus (6) History of melanoma: CODE(S): Z85.820 - Personal history of malignant melanoma of skin (7) Hyperlipidemia: CODE(S): E78.5 - Hyperlipidemia, unspecified (8) GERD (gastroesophageal reflux disease): CODE(S): K21.9 - Gastro-esophageal reflux disease without esophagitis (9) Obesity (BMI 30.0-34.9): CODE(S): E66.9 - Obesity, unspecified (10) Amputee, above knee: CODE(S): Z89.619 - Acquired absence of unspecified leg above knee PLAN: This is a 65-year-old female with a complex past medical history, m uch of which has been detailed above. She presented with a recurrence of her right groin ulceration, secondary to soft tissue radiation injury. The patient has been treated at our facility numerous times in the past. Her current ulceration recurred approximately 1 week prior to her presentation. We are to continue conservative treatment measures, which have proven to be successful previously. These are to include the use of Fibracol, applied by the patient on a daily basis. Serial weekly debridements are anticipated. The patient has been instructed to keep the area clean and dry, as its location in an intertriginous zone subjects the ulceration to body heat and perspiration. Nutritional optimization has been recommended. The patient is to return in 1 week for reassessment. Total time: 28 minutes.
--- NOTE | 2020-12-29 14:14 | PCM.WC.HP ---
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 The patient was diagnosed with melanoma of the right calf in the 1969's. 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 The patient underwent excision of her melanoma with lymphadenectomy in the right groin. She also underwent lengthy radiation treatments at the [facility] in [place], [place]. Melanoma recurred, and the patient was subsequently treated with monoclonal antibodies in 1984. 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 Treatment included local ulcer care and hyperbaric oxygen therapy. She underwent a total of nearly 90 treatments of hyperbaric oxygen therapy. It is known that she tolerated the therapies well, and derived significant benefit. 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 She has also undergone several sessions of hyperbaric oxygen therapy. She is also received a series of 10 EpiFix allografts in the course of previous treatment. Each of the patient's prior courses of treatment in our facility have been protracted, with difficulties encountered in achieving complete healing. Her most recent course of treatment ended with successful healing and discharge in August 2020. The patient presented at this time with a recurrence of her right groin ulceration, again thought to be secondary to soft tissue radiation injury. The ulceration recurred spontaneously approximately 1 week prior to her presentation. The patient indicates that her health history has not changed since she was last treated in our facility. [facility] Home Medications famotidine 20 mg PO 06/20/17 [History Last Taken Unknown] pravastatin 20 mg PO DAILY 06/20/17 [History Last Taken Unknown] Allergy/AdvReac Type Severity Reaction Status Date / Time No Known Allergies Allergy Verified 05/26/20 09:19 Social History Smoking Status: Former smoker Vital Signs Vital Signs Vital Signs: 12/29/20 09:27 Temperature 97.0 F L Temperature Source Temporal Pulse Rate 85 Respiratory Rate 16 Blood Pressure 142/81 H Blood Pressure Mean 101 Blood Pressure Source Monitor Blood Pressure Position Sitting Blood Pressure Location Right Arm Oxygen Delivery Method Room Air Weight Body Mass Index (BMI) 29.7 Debridement Note Debridement Note Post-Debridement Measurements and Additional Note: Post-Debridement Measurements/Treatment WC - Nurse 1 - General Ulcer Assessment Start: 12/08/20 09:16 Freq: Status: Active Protocol: MICHAEL Activity Type Activity Date Activity User E-Sign Co-Sign Detail Recorded Client Recorded Date Recorded By Document 12/08/20 09:17 KR [id number] 12/08/20 09:20 KR Document 12/22/20 09:31 KR [id number] 12/22/20 09:32 KR Document 12/29/20 09:27 MW [id number] 12/29/20 09:33 MW 12/08/20 12/22/20 12/29/20 09:17 09:31 09:27 WC - Today's Visit Information Type of service Follow-up Visit Follow-up Visit Follow-up 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/MANAGER TRAINING (Physician/MANAGER TRAINING (Physician/MANAGER TRAINING ) ) ) Arrival Mode Ambulatory Ambulatory Ambulatory Transfer Assistance None Accompanied by self Patient Identification Verified (Name & Yes Yes Yes ) Patient Requires Transmission-Based No Precautions Safety Precautions NA Height and Weight Body Mass Index (BMI) 29.7 29.7 29.7 BMI Classification Overweight Overweight Overweight Vital Signs Temperature (97.8 F-99.1 F) 96.2 F L 96.6 F L 97.0 F L Temperature Source Temporal Temporal Temporal Pulse Rate (60-100) 81 69 85 Pulse Location Monitor Monitor Monitor Respiratory Rate (12-18) 16 Respiratory rate source Observation Oxygen Delivery Method Room Air Blood Pressure (90/60-120/80) 156/88 H 125/78 H 142/81 H Blood Pressure Mean 110 93 101 Source Monitor Monitor Monitor Position Semi-Fowlers Semi-Fowlers Sitting Blood Pressure Location Right Arm Left Arm Right Arm History Since Last Visit- (Skip if this is Patient's initial visit) Have you changed medications since your No No No last visit? Any new allergies or adverse reactions No No No Had a fall/change in ADL's that may No No No increase risk of falls Signs or symptoms of abuse and/or No No No neglect since last visit Have you been in the hospital since your No No No last visit? Has dressing in place as prescribed Yes Yes Yes Has compression in place as prescribed N/A N/A N/A Has offloadiing in place as prescribed N/A N/A N/A Experienced any changes in pain level or No No No management Left Footwear Regular Shoe Regular Shoe Right Footwear Regular Shoe Other Footwear (Comment) Other Footwear prosthesis RLE Pain Scale: 0-10 Numeric Is Patient Pain Free? Yes Yes Yes WC - Nurse 1 - General Ulcer Measurement Start: 12/08/20 09:16 Freq: Status: Active Protocol: Activity Type Activity Date Activity User E-Sign Co-Sign Detail Recorded Client Recorded Date Recorded By Document 12/08/20 09:17 KR [id number] 12/08/20 09:20 KR Document 12/22/20 09:31 KR [id number] 12/22/20 09:32 KR Document 12/29/20 09:27 MW [id number] 12/29/20 09:33 MW 12/08/20 12/22/20 12/29/20 09:17 09:31 09:27 Wound Center Nurse 1 # 10 Right Groin -Combined with other wound No -Current Size (cm) - Length 0.4 0.3 0.3 -Current Size (cm) - Width 0.4 0.2 0.3 -Current Size (cm) - Depth 0.1 0.1 0.1 -Total Square Cm 0.16 0.06 0.09 -Photo Taken No -Epithelialization None Present -Tunneling No -Undermining/Tunneling No -Circular Undermining No -Exudate Amt Small Small Small -Exudate Type Serosanguineous Serosanguineous Serosanguineous -Wound Margin Distinct, Distinct, Flat & Intact Outline Outline Attached Attached -Granulation Amt Small (1-33%) Small (1-33%) Small (1-33%) -Granulation Quality Red [place] -Slough/Fibrin Yes -Necrosis Amt Small (1-33%) Small (1-33%) -Necrotic Tissue Type Adherent Slough Adherent Slough -Structure Exposed N/A -Texture (Blanche-wound Skin Appearance) Assessed, Assessed, Assessed, Scarring Scarring Scarring -Moisture (Blanche-wound Skin Appearance) Assessed No Abnormality, No Abnormality, Assessed Assessed -Color (Blanche-wound Skin Appearance) No Abnormality, No Abnormality, No Abnormality, Assessed Assessed Assessed -Temperature (Blanche-wound Skin No Abnormality No Abnormality No Abnormality Appearance) (Pt Warm) (Pt Warm) (Pt Warm) -Tenderness on Palpation (Blanche-wound No No Yes Skin Appearance) -Ulcer Cleansing Rinsed/ Rinsed/ Rinsed/ Irrigated with Irrigated with Irrigated with Saline Saline Saline -Foul Odor after Cleansing No No No -Anesthetic Used 5% Lidocaine 4% Lidocaine 4% Lidocaine Gel Solution Solution Lower Limb Edema Present No WC - Nurse 2 - General Ulcer CM Notes Start: 12/08/20 09:16 Freq: Status: Active Protocol: Activity Type Activity Date Activity User E-Sign Co-Sign Detail Recorded Client Recorded Date Recorded By Document 12/08/20 12:38 PL [id number] 12/08/20 12:39 PL Document 12/22/20 12:38 PL [id number] 12/22/20 12:39 PL Document 12/29/20 11:45 PL [id number] 12/29/20 11:46 PL 12/08/20 12/22/20 12/29/20 12:38 12:38 11:45 Wound Center Nurse 2 # 10 Right Groin -Time 09:40 09:45 09:43 -Correct Patient Yes Yes Yes -Correct Side, Site, Position Yes Yes Yes -Correct Procedure Yes Yes Yes -Procedure Performed Yes Yes Yes -Type of Procedure Debridement Debridement Debridement -Clinical Debridement Subcutaneous Subcutaneous Subcutaneous -Tissue Removed Subcutaneous Subcutaneous Subcutaneous -Post Debridement (cm) - Length 0.4 0.3 0.3 -Post Debridement (cm) - Width 0.4 0.2 0.3 -Post Debridement (cm) - Depth 0.1 0.1 0.1 -Total Square (Post) (cm) 0.16 0.06 0.09 -Area of Debridement (cm) - Length 0.4 0.3 0.3 -Area of Debridement (cm) - Width 0.4 0.2 0.3 -Total Square (Area) (cm) 0.16 0.06 0.09 -Tunneling No No No -Undermining/Tunneling No No No -Circular Undermining No No No -Wound/Ulcer Outcome Not Healed Not Healed Not Healed -Ulcer Cleansing Rinsed/ Rinsed/ Rinsed/ Irrigated with Irrigated with Irrigated with Saline Saline Saline -Foul Odor after Cleansing No No No -Bioengineered Tissue No No No -Bleeding Controlled with Pressure -Treatment Response Procedure Tolerated Well -Debridement - Subq, 1st 20sq cm Yes Yes Yes Pain Scale: 0-10 Numeric Is Patient Pain Free? Yes Yes Yes - Nurse 3 - General Ulcer D/C NN Start: 12/08/20 09:16 Freq: Status: Active Protocol: Activity Type Activity Date Activity User E-Sign Co-Sign Detail Recorded Client Recorded Date Recorded By Document 12/08/20 09:56 KR [id number] 12/08/20 09:57 KR Document 12/22/20 10:06 KR [id number] 12/22/20 10:07 KR Document 12/29/20 09:52 MW [id number] 12/29/20 09:53 MW 12/08/20 12/22/20 12/29/20 09:56 10:06 09:52 Wound Care Nurse 3 # 10 Right Groin -Ulcer Cleansing Rinsed/ Irrigated with Saline -Foul Odor after Cleansing No -Negative Pressure Wound Therapy N/A -Primary Dressing Applied Fibracol Plus 4x4 -Other Dressing fibracol plus -Primary Dressing Covered/Secured with Dry Gauze Secured with Dry Gauze, Tape Secured with Tape -Fibracol Plus 4x4 1 Treatment Response Procedure Tolerated Well Pain Scale: 0-10 Numeric Is Patient Pain Free? Yes Yes Yes Teaching: Wound Center Dressing Your Wound -Person Taught Patient -Teaching Method Discussion, Demonstration -Response to teaching Verbalize understanding WC - Visit Discharge Discharge Condition Stable Stable Stable Ambulatory Status Ambulatory Ambulatory Ambulatory Transportation Private Auto Private Auto Private Auto Accompanied by self Medication Reconcilliation completed & No provided to patient/care provider Clinical Summary of Care Provided Yes
[2021-01-05 09:17] VITALS: BP 153/87; PULSE 92; RESP 18; TEMP 36.6; BMI 29.7
--- NOTE | 2021-01-05 09:41 | PCM.WC.HP ---
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 The patient was diagnosed with melanoma of the right calf in the 1969's. 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 The patient underwent excision of her melanoma with lymphadenectomy in the right groin. She also underwent lengthy radiation treatments at the [facility] in [place], [place]. Melanoma recurred, and the patient was subsequently treated with monoclonal antibodies in 1984. 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 Treatment included local ulcer care and hyperbaric oxygen therapy. She underwent a total of nearly 90 treatments of hyperbaric oxygen therapy. It is known that she tolerated the therapies well, and derived significant benefit. 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 She has also undergone several sessions of hyperbaric oxygen therapy. She is also received a series of 10 EpiFix allografts in the course of previous treatment. Each of the patient's prior courses of treatment in our facility have been protracted, with difficulties encountered in achieving complete healing. Her most recent course of treatment ended with successful healing and discharge in August 2020. The patient presented at this time with a recurrence of her right groin ulceration, again thought to be secondary to soft tissue radiation injury. The ulceration recurred spontaneously approximately 1 week prior to her presentation. The patient indicates that her health history has not changed since she was last treated in our facility. [facility] Home Medications famotidine 20 mg PO 06/20/17 [History Last Taken Unknown] pravastatin 20 mg PO DAILY 06/20/17 [History Last Taken Unknown] Allergy/AdvReac Type Severity Reaction Status Date / Time No Known Allergies Allergy Verified 05/26/20 09:19 Social History Smoking Status: Former smoker Vital Signs Vital Signs Vital Signs: 01/05/21 09:17 Temperature 97.8 F Temperature Source Temporal Pulse Rate 92 Respiratory Rate 18 Blood Pressure 153/87 H Blood Pressure Mean 109 Weight Body Mass Index (BMI) 29.7 Physical Exam Const alert, oriented x3, no apparent distress and well nourished General Appearance: cooperative, comfortable, well kempt and well developed Orientation / Consciousness: awake, oriented to person, oriented to place and oriented to time HEENT normocephalic and head/scalp atraumatic Head and Scalp: normal to inspection, normocephalic and atraumatic External Ear: external ears normal Eyes PERRL and EOMs intact bilaterally General Eye: normal appearance of both eyes Resp normal respiratory effort, normal air movement, no retractions and no use of accessory muscles Effort and Inspection: able to speak in complete sentences Extremity no calf tenderness Extremity Narrative: A well-healed right above-knee amputation stump is noted. General Extremity: Negative for clubbing or cyanosis Skin Wound Narrative: The ulceration in the right groin persists. It is little changed in size or appearance. Dimensions are documented elsewhere. There is no sign of infection or cellulitis. There is a small amount of bioburden. Neuro oriented x3, CN's II-XII intact bilaterally and moves all extremities Speech: speech normal Psych mental status grossly normal Appearance: grossly normal, appropriate and well kempt Attitude: calm and engaged Activity / Motor Behavior: appropriate eye contact Speech: normal speech Mood & Affect: euthymic mood Thought Process: normal thought process Debridement Note Debridement Note Post-Debridement Measurements and Additional Note: Post-Debridement Measurements/Treatment - Nurse 1 - General Ulcer Assessment Start: 12/08/20 09:16 Freq: Status: Active Protocol: MICHAEL Activity Type Activity Date Activity User E-Sign Co-Sign Detail Recorded Client Recorded Date Recorded By Document 12/08/20 09:17 KR [id number] 12/08/20 09:20 KR Document 12/22/20 09:31 KR [id number] 12/22/20 09:32 KR Document 12/29/20 09:27 MW [id number] 12/29/20 09:33 MW Document 01/05/21 09:17 PL [id number] 01/05/21 09:26 PL 12/08/20 12/22/20 12/29/20 09:17 09:31 09:27 - Today's Visit Information Type of service Follow-up Visit Follow-up Visit Follow-up 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/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 (Physician/RULING 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 (Physician/RULING 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 ) ) ) Arrival Mode Ambulatory Ambulatory Ambulatory Transfer Assistance None Accompanied by self Patient Identification Verified (Name & Yes Yes Yes ) Patient Requires Transmission-Based No Precautions Safety Precautions NA Height and Weight Body Mass Index (BMI) 29.7 29.7 29.7 BMI Classification Overweight Overweight Overweight Vital Signs Temperature (97.8 F-99.1 F) 96.2 F L 96.6 F L 97.0 F L Temperature Source Temporal Temporal Temporal Pulse Rate (60-100) 81 69 85 Pulse Location Monitor Monitor Monitor Respiratory Rate (12-18) 16 Respiratory rate source Observation Oxygen Delivery Method Room Air Blood Pressure (90/60-120/80) 156/88 H 125/78 H 142/81 H Blood Pressure Mean 110 93 101 Source Monitor Monitor Monitor Position Semi-Fowlers Semi-Fowlers Sitting Blood Pressure Location Right Arm Left Arm Right Arm History Since Last Visit- (Skip if this is Patient's initial visit) Have you changed medications since your No No No last visit? Any new allergies or adverse reactions No No No Had a fall/change in ADL's that may No No No increase risk of falls Signs or symptoms of abuse and/or No No No neglect since last visit Have you been in the hospital since your No No No last visit? Has dressing in place as prescribed Yes Yes Yes Has compression in place as prescribed N/A N/A N/A Has offloadiing in place as prescribed N/A N/A N/A Experienced any changes in pain level or No No No management Left Footwear Regular Shoe Regular Shoe Right Footwear Regular Shoe Other Footwear (Comment) Other Footwear prosthesis RLE Pain Scale: 0-10 Numeric Is Patient Pain Free? 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 ) Arrival Mode Ambulatory Transfer Assistance None Accompanied by Patient Identification Verified (Name & Yes ) Patient Requires Transmission-Based No Precautions Safety Precautions NA Height and Weight Body Mass Index (BMI) 29.7 BMI Classification Overweight Vital Signs Temperature (97.8 F-99.1 F) 97.8 F Temperature Source Temporal Pulse Rate (60-100) 92 Pulse Location Respiratory Rate (12-18) 18 Respiratory rate source Oxygen Delivery Method Blood Pressure (90/60-120/80) 153/87 H Blood Pressure Mean 109 Source Position Blood Pressure Location History Since Last Visit- (Skip if this is Patient's initial visit) Have you changed medications since your No last visit? Any new allergies or adverse reactions No Had a fall/change in ADL's that may No increase risk of falls Signs or symptoms of abuse and/or No neglect since last visit Have you been in the hospital since your No last visit? Has dressing in place as prescribed Yes Has compression in place as prescribed N/A Has offloadiing in place as prescribed N/A Experienced any changes in pain level or No management Left Footwear Right Footwear Other Footwear Pain Scale: 0-10 Numeric Is Patient Pain Free? Yes WC - Nurse 1 - General Ulcer Measurement Start: 12/08/20 09:16 Freq: Status: Active Protocol: Activity Type Activity Date Activity User E-Sign Co-Sign Detail Recorded Client Recorded Date Recorded By Document 12/08/20 09:17 KR [id number] 12/08/20 09:20 KR Document 12/22/20 09:31 KR [id number] 12/22/20 09:32 KR Document 12/29/20 09:27 MW [id number] 12/29/20 09:33 MW Document 01/05/21 09:17 PL [id number] 01/05/21 09:26 PL 12/08/20 12/22/20 12/29/20 09:17 09:31 09:27 Wound Center Nurse 1 # 10 Right Groin -Combined with other wound No -Current Size (cm) - Length 0.4 0.3 0.3 -Current Size (cm) - Width 0.4 0.2 0.3 -Current Size (cm) - Depth 0.1 0.1 0.1 -Total Square Cm 0.16 0.06 0.09 -Photo Taken No -Epithelialization None Present -Tunneling No -Undermining/Tunneling No -Circular Undermining No -Exudate Amt Small Small Small -Exudate Type Serosanguineous Serosanguineous Serosanguineous -Wound Margin Distinct, Distinct, Flat & Intact Outline Outline Attached Attached -Granulation Amt Small (1-33%) Small (1-33%) Small (1-33%) -Granulation Quality [place] -Slough/Fibrin Yes -Necrosis Amt Small (1-33%) Small (1-33%) -Necrotic Tissue Type Adherent Slough Adherent Slough -Structure Exposed N/A -Texture (Blanche-wound Skin Appearance) Assessed, Assessed, Assessed, Scarring Scarring Scarring -Moisture (Blanche-wound Skin Appearance) Assessed No Abnormality, No Abnormality, Assessed Assessed -Color (Blanche-wound Skin Appearance) No Abnormality, No Abnormality, No Abnormality, Assessed Assessed Assessed -Temperature (Blanche-wound Skin No Abnormality No Abnormality No Abnormality Appearance) (Pt Warm) (Pt Warm) (Pt Warm) -Tenderness on Palpation (Blanche-wound No No Yes Skin Appearance) -Ulcer Cleansing Rinsed/ Rinsed/ Rinsed/ Irrigated with Irrigated with Irrigated with Saline Saline Saline -Foul Odor after Cleansing No No No -Anesthetic Used 5% Lidocaine 4% Lidocaine 4% Lidocaine Gel Solution Solution Lower Limb Edema Present No 01/05/21 09:17 Wound Center Nurse 1 # 10 Right Groin -Combined with other wound -Current Size (cm) - Length 0.3 -Current Size (cm) - Width 0.3 -Current Size (cm) - Depth 0.1 -Total Square Cm 0.09 -Photo Taken No -Epithelialization None Present -Tunneling No -Undermining/Tunneling No -Circular Undermining No -Exudate Amt Medium -Exudate Type Serosanguineous -Wound Margin Flat & Intact -Granulation Amt Large (67-100%) -Granulation Quality [place] -Slough/Fibrin Yes -Necrosis Amt Small (1-33%) -Necrotic Tissue Type Adherent Slough -Structure Exposed -Texture (Blanche-wound Skin Appearance) -Moisture (Lbanche-wound Skin Appearance) -Color (Blanche-wound Skin Appearance) -Temperature (Blanche-wound Skin No Abnormality Appearance) (Pt Warm) -Tenderness on Palpation (Blanche-wound Skin Appearance) -Ulcer Cleansing Not Cleansed -Foul Odor after Cleansing -Anesthetic Used 5% Lidocaine Gel Lower Limb Edema Present WC - Nurse 2 - General Ulcer CM Notes Start: 12/08/20 09:16 Freq: Status: Active Protocol: Activity Type Activity Date Activity User E-Sign Co-Sign Detail Recorded Client Recorded Date Recorded By Document 12/08/20 12:38 PL [id number] 12/08/20 12:39 PL Document 12/22/20 12:38 PL [id number] 12/22/20 12:39 PL Document 12/29/20 11:45 PL [id number] 12/29/20 11:46 PL 12/08/20 12/22/20 12/29/20 12:38 12:38 11:45 Wound Center Nurse 2 # 10 Right Groin -Time 09:40 09:45 09:43 -Correct Patient Yes Yes Yes -Correct Side, Site, Position Yes Yes Yes -Correct Procedure Yes Yes Yes -Procedure Performed Yes Yes Yes -Type of Procedure Debridement Debridement Debridement -Clinical Debridement Subcutaneous Subcutaneous Subcutaneous -Tissue Removed Subcutaneous Subcutaneous Subcutaneous -Post Debridement (cm) - Length 0.4 0.3 0.3 -Post Debridement (cm) - Width 0.4 0.2 0.3 -Post Debridement (cm) - Depth 0.1 0.1 0.1 -Total Square (Post) (cm) 0.16 0.06 0.09 -Area of Debridement (cm) - Length 0.4 0.3 0.3 -Area of Debridement (cm) - Width 0.4 0.2 0.3 -Total Square (Area) (cm) 0.16 0.06 0.09 -Tunneling No No No -Undermining/Tunneling No No No -Circular Undermining No No No -Wound/Ulcer Outcome Not Healed Not Healed Not Healed -Ulcer Cleansing Rinsed/ Rinsed/ Rinsed/ Irrigated with Irrigated with Irrigated with Saline Saline Saline -Foul Odor after Cleansing No No No -Bioengineered Tissue No No No -Bleeding Controlled with Pressure -Treatment Response Procedure Tolerated Well -Debridement - Subq, 1st 20sq cm Yes Yes Yes Pain Scale: 0-10 Numeric Is Patient Pain Free? Yes Yes Yes - Nurse 3 - General Ulcer D/C NN Start: 12/08/20 09:16 Freq: Status: Active Protocol: Activity Type Activity Date Activity User E-Sign Co-Sign Detail Recorded Client Recorded Date Recorded By Document 12/08/20 09:56 KR [id number] 12/08/20 09:57 KR Document 12/22/20 10:06 KR [id number] 12/22/20 10:07 KR Document 12/29/20 09:52 MW [id number] 12/29/20 09:53 MW 12/08/20 12/22/20 12/29/20 09:56 10:06 09:52 Wound Care Nurse 3 # 10 Right Groin -Ulcer Cleansing Rinsed/ Irrigated with Saline -Foul Odor after Cleansing No -Negative Pressure Wound Therapy N/A -Primary Dressing Applied Fibracol Plus 4x4 -Other Dressing fibracol plus -Primary Dressing Covered/Secured with Dry Gauze Secured with Dry Gauze, Tape Secured with Tape -Fibracol Plus 4x4 1 Treatment Response Procedure Tolerated Well Pain Scale: 0-10 Numeric Is Patient Pain Free? Yes Yes Yes Teaching: Wound Center Dressing Your Wound -Person Taught Patient -Teaching Method Discussion, Demonstration -Response to teaching Verbalize understanding WC - Visit Discharge Discharge Condition Stable Stable Stable Ambulatory Status Ambulatory Ambulatory Ambulatory Transportation Private Auto Private Auto Private Auto Accompanied by self Medication Reconcilliation completed & No provided to patient/care provider Clinical Summary of Care Provided Yes Wound debrided: Right groin Laterality: Right Type of Debridement: Excisional debridement Anesthesia Used: 5% Lidocaine Gel Depth: Down to and including healthy tissue and in the subcutaneous layer Percentage of wound debrided: 100 Instrument Used: 3mm curette Tissue Removed: Bioburden Severity: Fat Layer Exposed Amount of bleeding with debridement: Mild Bleeding Controlled with: Compression and gauze Patient tolerated procedure: Patient tolerated procedure well Assessment/Plan Assessment/Plan (1) Ulcer of right groin: CODE(S): L98.499 - Non-pressure chronic ulcer of skin of other sites with unspecified severity QUALIFIERS: Non-pressure ulcer stage: with fat layer exposed (2) soft tissue radiation injury: (3) Soft tissue radionecrosis: CODE(S): L59.8 - Other specified disorders of the skin and subcutaneous tissue related to radiation; Y84.2 - Radiological procedure and radiotherapy as the cause of abnormal reaction of the patient, or of later complication, without mention of misadventure at the time of the procedure (4) Overweight (BMI 25.0-29.9): CODE(S): E66.3 - Overweight (5) History of uterine cancer: CODE(S): Z85.42 - Personal history of malignant neoplasm of other parts of uterus (6) History of melanoma: CODE(S): Z85.820 - Personal history of malignant melanoma of skin (7) Hyperlipidemia: CODE(S): E78.5 - Hyperlipidemia, unspecified (8) GERD (gastroesophageal reflux disease): CODE(S): K21.9 - Gastro-esophageal reflux disease without esophagitis (9) Obesity (BMI 30.0-34.9): CODE(S): E66.9 - Obesity, unspecified (10) Amputee, above knee: CODE(S): Z89.619 - Acquired absence of unspecified leg above knee PLAN: This is a 65-year-old female with a complex past medical history, much of which has been detailed above. She presented with a recurrence of her right groin ulceration, secondary to soft tissue radiation injury. The patient has been treated at our facility numerous times in the past. Her current ulceration recurred approximately 1 week prior to her presentation. We are to continue conservative treatment measures, which have proven to be successful previously. We are to transition from the use of Fibracol, to the use of Dakin's solution, which will be used to moisten gauze, placed topically on the ulceration once daily. Serial weekly debridements are anticipated. The patient has been instructed to keep the area clean and dry, as its location in an intertriginous zone subjects the ulceration to body heat and perspiration. Nutritional optimization has been recommended. The patient is to return in 1 week for reassessment. Total time: 28 minutes.
== END 2021-01-06 23:59 ==
LOC: WC 09:15
PROVIDERS: PCP Family Medicine; Visit Provider Surgery
DX: L59.8 Other specified disorders of the skin and subcutaneous tissue related to radiation (principal); Y84.2 Radiological procedure and radiotherapy as the cause of abnormal reaction of the patient, or of later complication, without mention of misadventure at the time of the procedure; Z85.820 Personal history of malignant melanoma of skin; Z89.611 Acquired absence of right leg above knee; Z87.891 Personal history of nicotine dependence; L98.492 Non-pressure chronic ulcer of skin of other sites with fat layer exposed; E66.9 Obesity, unspecified; K21.9 Gastro-esophageal reflux disease without esophagitis; E78.5 Hyperlipidemia, unspecified; Z68.29 Body mass index [BMI] 29.0-29.9, adult
CPT/HCPCS: 11042

== ENCOUNTER 2021-01-26 09:15 | Outpatient (RCR) | payer MEDICARE, OTHER, SELFPAY ==
[2021-01-07 00:29] VITALS: BP 153/87; PULSE 92; RESP 18; TEMP 36.6
[2021-01-12 09:19] VITALS: BP 138/78; PULSE 87; RESP 16; TEMP 36.5; BMI 29.7
--- NOTE | 2021-01-12 09:57 | HP.PCM_ITS ---
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 The patient was diagnosed with melanoma of the right calf in the 1969's. 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 The patient underwent excision of her melanoma with lymphadenectomy in the right groin. She also underwent lengthy radiation treatments at the [facility] in [place], [place]. Melanoma recurred, and the patient was subsequently treated with monoclonal antibodies in 1984. 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 Treatment included local ulcer care and hyperbaric oxygen therapy. She underwent a total of nearly 90 treatments of hyperbaric oxygen therapy. It is known that she tolerated the therapies well, and derived significant benefit. 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 She has also undergone several sessions of hyperbaric oxygen therapy. She is also received a series of 10 EpiFix allografts in the course of previous treatment. Each of the patient's prior courses of treatment in our facility have been protracted, with difficulties encountered in achieving complete healing. Her most recent course of treatment ended with successful healing and discharge in August 2020. The patient presented at this time with a recurrence of her right groin ulceration, again thought to be secondary to soft tissue radiation injury. The ulceration recurred spontaneously approximately 1 week prior to her presentation. The patient indicates that her health history has not changed since she was last treated in our facility. [facility] Home Medications famotidine 20 mg PO 06/20/17 [History Last Taken Unknown] pravastatin 20 mg PO DAILY 06/20/17 [History Last Taken Unknown] Allergy/AdvReac Type Severity Reaction Status Date / Time No Known Allergies Allergy Verified 05/26/20 09:19 Social History Smoking Status: Former smoker Vital Signs Vital Signs Vital Signs: 01/12/21 09:19 Temperature 97.7 F L Temperature Source Temporal Pulse Rate 87 Respiratory Rate 16 Blood Pressure 138/78 H Blood Pressure Mean 98 Blood Pressure Source Monitor Blood Pressure Position Sitting Blood Pressure Location Left Arm Oxygen Delivery Method Room Air Weight Body Mass Index (BMI) 29.7 Physical Exam Const alert, oriented x3, no apparent distress and well nourished General Appearance: cooperative, comfortable, well kempt and well developed Orientation / Consciousness: awake, oriented to person, oriented to place and oriented to time HEENT normocephalic Head and Scalp: normal to inspection, normocephalic and atraumatic External Ear: external ears normal Eyes PERRL and EOMs intact bilaterally Resp normal respiratory effort, normal air movement, no retractions and no use of accessory muscles Effort and Inspection: able to speak in complete sentences Extremity no calf tenderness Extremity Narrative: A well-healed right above-knee amputation stump is noted. General Extremity: Negative for clubbing or cyanosis Skin Wound Narrative: The wound in the right groin persists. It is little changed in size or appearance. Dimensions are documented elsewhere. There is no sign of infection or cellulitis. There is a small amount of bioburden. Neuro oriented x3, CN's II-XII intact bilaterally and no sensory deficits noted Speech: speech normal Psych Appearance: grossly normal, appropriate and well kempt Attitude: calm and engaged Activity / Motor Behavior: appropriate eye contact Speech: normal speech Mood & Affect: euthymic mood Thought Process: normal thought process Debridement Note Debridement Note Post-Debridement Measurements and Additional Note: Post-Debridement Measurements/Treatment - Nurse 1 - General Ulcer Assessment Start: 01/12/21 09:19 Freq: Status: Active Protocol: KISHA.XOCHITL Activity Type Activity Date Activity User E-Sign Co-Sign Detail Recorded Client Recorded Date Recorded By Document 01/12/21 09:19 [id number] 01/12/21 09:27 MW 01/12/21 09:19 - Today's Visit Information Type of service Follow-up 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/APPLICATION 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 ENGINEER ) Arrival Mode Ambulatory Transfer Assistance None Accompanied by self Patient Identification Verified (Name & Yes ) Patient Requires Transmission-Based No Precautions Safety Precautions Fall Prevention Height and Weight Body Mass Index (BMI) 29.7 BMI Classification Overweight Vital Signs Temperature (97.8 F-99.1 F) 97.7 F L Temperature Source Temporal Pulse Rate (60-100) 87 Pulse Location Monitor Respiratory Rate (12-18) 16 Respiratory rate source Observation Oxygen Delivery Method Room Air Blood Pressure (90/60-120/80) 138/78 H Blood Pressure Mean 98 Source Monitor Position Sitting Blood Pressure Location Left Arm History Since Last Visit- (Skip if this is Patient's initial visit) Have you changed medications since your No last visit? Any new allergies or adverse reactions No Had a fall/change in ADL's that may No increase risk of falls Signs or symptoms of abuse and/or No neglect since last visit Have you been in the hospital since your No last visit? Has dressing in place as prescribed Yes Has compression in place as prescribed N/A Has offloadiing in place as prescribed N/A Experienced any changes in pain level or No management Left Footwear Regular Shoe Right Footwear Other Footwear (Comment) Other Footwear prosthesis RLE Pain Scale: 0-10 Numeric Is Patient Pain Free? Yes WC - Nurse 1 - General Ulcer Measurement Start: 01/12/21 09:19 Freq: Status: Active Protocol: Activity Type Activity Date Activity User E-Sign Co-Sign Detail Recorded Client Recorded Date Recorded By Document 01/12/21 09:19 MW [id number] 01/12/21 09:27 MW 01/12/21 09:19 Wound Center Nurse 1 # 10 Right Groin -Combined with other wound No -Current Size (cm) - Length 0.3 -Current Size (cm) - Width 0.3 -Current Size (cm) - Depth 0.1 -Total Square Cm 0.09 -Photo Taken No -Epithelialization None Present -Tunneling No -Undermining/Tunneling No -Circular Undermining No -Exudate Amt Small -Exudate Type Serosanguineous -Wound Margin Flat & Intact -Granulation Amt None Present (0 %) -Granulation Quality N/A -Slough/Fibrin Yes -Necrosis Amt Large (67-100%) -Necrotic Tissue Type Adherent Slough -Structure Exposed N/A -Texture (Blanche-wound Skin Appearance) Assessed, Localized Edema ,Scarring -Moisture (Blanche-wound Skin Appearance) No Abnormality, Assessed -Color (Blanche-wound Skin Appearance) No Abnormality, Assessed -Temperature (Blanche-wound Skin No Abnormality Appearance) (Pt Warm) -Tenderness on Palpation (Blanche-wound No Skin Appearance) -Ulcer Cleansing Not Cleansed -Anesthetic Used 4% Lidocaine Solution Lower Limb Edema Present No WC - Nurse 3 - General Ulcer D/C NN Start: 01/12/21 09:19 Freq: Status: Active Protocol: Activity Type Activity Date Activity User E-Sign Co-Sign Detail Recorded Client Recorded Date Recorded By Document 01/12/21 09:48 MW [id number] 01/12/21 09:49 MW 01/12/21 09:48 Wound Care Nurse 3 # 10 Right Groin -Ulcer Cleansing Rinsed/ Irrigated with Saline -Foul Odor after Cleansing No -Negative Pressure Wound Therapy N/A -Other Dressing dakins wet to dry, 1/4 Nugauze -Primary Dressing Covered/Secured with Dry Gauze, Secured with Tape Treatment Response Procedure Tolerated Well Pain Scale: 0-10 Numeric Is Patient Pain Free? Yes Teaching: Wound Center Dressing Your Wound -Person Taught Patient -Teaching Method Discussion, Demonstration -Response to teaching Verbalize understanding WC - Visit Discharge Discharge Condition Stable Ambulatory Status Ambulatory Transportation Private Auto Accompanied by self Medication Reconcilliation completed & No provided to patient/care provider Clinical Summary of Care Provided Yes Wound debrided: Right groin Laterality: Right Type of Debridement: Excisional debridement Anesthesia Used: 5% Lidocaine Gel Depth: Down to and including healthy tissue and in the subcutaneous layer Percentage of wound debrided: 100 Instrument Used: 3mm curette Tissue Removed: Bioburden Severity: Fat Layer Exposed Amount of bleeding with debridement: Mild Bleeding Controlled with: Compression and gauze Patient tolerated procedure: Patient tolerated procedure well Assessment/Plan Assessment/Plan (1) Ulcer of right groin: CODE(S): L98.499 - Non-pressure chronic ulcer of skin of other sites with unspecified severity QUALIFIERS: Non-pressure ulcer stage: with fat layer exposed (2) Soft tissue radionecrosis: CODE(S): L59.8 - Other specified disorders of the skin and subcutaneous tissue related to radiation; Y84.2 - Radiological procedure and radiotherapy as the cause of abnormal reaction of the patient, or of later complication, without mention of misadventure at the time of the procedure (3) soft tissue radiation injury: (4) Amputee, above knee: CODE(S): Z89.619 - Acquired absence of unspecified leg above knee (5) Overweight (BMI 25.0-29.9): CODE(S): E66.3 - Overweight (6) History of uterine cancer: CODE(S): Z85.42 - Personal history of malignant neoplasm of other parts of uterus (7) History of melanoma: CODE(S): Z85.820 - Personal history of malignant melanoma of skin (8) Hyperlipidemia: CODE(S): E78.5 - Hyperlipidemia, unspecified (9) GERD (gastroesophageal reflux disease): CODE(S): K21.9 - Gastro-esophageal reflux disease without esophagitis (10) Obesity (BMI 30.0-34.9): CODE(S): E66.9 - Obesity, unspecified PLAN: This is a 65-year-old female with a complex past medical history, much of which has been detailed above. She presented with a recurrence of her right groin ulceration, secondary to soft tissue radiation injury. The patient has been treated at our facility numerous times in the past. Her current ulceration recurred approximately 1 week prior to her presentation. We are to continue conservative treatment measures, which have proven to be successful previously. We are to continue the use of 0.25% Dakin's solution, which will be used to moisten gauze, placed topically on the ulceration once daily. Serial weekly debridements are anticipated. The patient has been instructed to keep the area clean and dry, as its location in an intertriginous zone subjects the ulceration to body heat and perspiration. Nutritional optimization has been re commended. The patient is to return in 1 week for reassessment. Total time: 29 minutes.
[2021-01-19 09:28] VITALS: BP 155/88; PULSE 86; RESP 18; TEMP 36.8; BMI 29.7
--- NOTE | 2021-01-19 09:53 | PCM.WC.HP ---
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 The patient was diagnosed with melanoma of the right calf in the 1969's. 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 The patient underwent excision of her melanoma with lymphadenectomy in the right groin. She also underwent lengthy radiation treatments at the [facility] in [place], [place]. Melanoma recurred, and the patient was subsequently treated with monoclonal antibodies in 1984. 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 Treatment included local ulcer care and hyperbaric oxygen therapy. She underwent a total of nearly 90 treatments of hyperbaric oxygen therapy. It is known that she tolerated the therapies well, and derived significant benefit. 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 She has also undergone several sessions of hyperbaric oxygen therapy. She is also received a series of 10 EpiFix allografts in the course of previous treatment. Each of the patient's prior courses of treatment in our facility have been protracted, with difficulties encountered in achieving complete healing. Her most recent course of treatment ended with successful healing and discharge in August 2020. The patient presented at this time with a recurrence of her right groin ulceration, again thought to be secondary to soft tissue radiation injury. The ulceration recurred spontaneously approximately 1 week prior to her presentation. The patient indicates that her health history has not changed since she was last treated in our facility. [facility] Home Medications famotidine 20 mg PO 06/20/17 [History Last Taken Unknown] pravastatin 20 mg PO DAILY 06/20/17 [History Last Taken Unknown] Allergy/AdvReac Type Severity Reaction Status Date / Time No Known Allergies Allergy Verified 05/26/20 09:19 Social History Smoking Status: Former smoker Vital Signs Vital Signs Vital Signs: 01/19/21 09:28 Temperature 98.2 F Temperature Source Temporal Pulse Rate 86 Respiratory Rate 18 Blood Pressure 155/88 H Blood Pressure Mean 110 Weight Body Mass Index (BMI) 29.7 Physical Exam Const alert, oriented x3, no apparent distress and well nourished General Appearance: cooperative, comfortable, well kempt and well developed Orientation / Consciousness: awake, oriented to person, oriented to place and oriented to time HEENT normocephalic and head/scalp atraumatic Head and Scalp: normal to inspection, normocephalic and atraumatic External Ear: external ears normal Eyes PERRL and EOMs intact bilaterally General Eye: normal appearance of both eyes Resp normal respiratory effort, normal air movement, no retractions and no use of accessory muscles Effort and Inspection: able to speak in complete sentences Extremity no calf tenderness Extremity Narrative: A well-healed right above-knee amputation stump is noted. General Extremity: Negative for clubbing or cyanosis Skin Wound Narrative: The ulceration in the patient's right groin persists. It appears to be smaller in size. Dimensions are documented elsewhere. There is evidence of epithelialization. There is no drainage. There is no sign of infection or cellulitis. Neuro oriented x3, CN's II-XII intact bilaterally and no focal motor deficits Psych mental status grossly normal Appearance: grossly normal, appropriate and well kempt Attitude: calm Activity / Motor Behavior: appropriate eye contact Speech: normal speech Mood & Affect: euthymic mood Thought Process: normal thought process Thought Content: normal thought content Attention / Concentration: attention grossly intact Debridement Note Debridement Note Post-Debridement Measurements and Additional Note: Post-Debridement Measurements/Treatment - Nurse 1 - General Ulcer Assessment Start: 01/12/21 09:19 Freq: Status: Active Protocol: WC.LOWHALLIET Activity Type Activity Date Activity User E-Sign Co-Sign Detail Recorded Client Recorded Date Recorded By Document 01/12/21 09:19 MW [id number] 01/12/21 09:27 MW Document 01/19/21 09:28 PL [id number] 01/19/21 09:32 PL 01/12/21 01/19/21 09:19 09:28 - Today's Visit Information Type of service Follow-up Visit Follow-up 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/RETAIL SELLING FLOOR LEADER (Physician/RETAIL SELLING FLOOR LEADER ) ) Arrival Mode Ambulatory Ambulatory Transfer Assistance None None Accompanied by self Patient Identification Verified (Name & Yes Yes ) Patient Requires Transmission-Based No No Precautions Safety Precautions Fall Prevention NA Height and Weight Body Mass Index (BMI) 29.7 29.7 BMI Classification Overweight Overweight Vital Signs Temperature (97.8 F-99.1 F) 97.7 F L 98.2 F Temperature Source Temporal Temporal Pulse Rate (60-100) 87 86 Pulse Location Monitor Respiratory Rate (12-18) 16 18 Respiratory rate source Observation Oxygen Delivery Method Room Air Blood Pressure (90/60-120/80) 138/78 H 155/88 H Blood Pressure Mean 98 110 Source Monitor Position Sitting Blood Pressure Location Left Arm History Since Last Visit- (Skip if this is Patient's initial visit) Have you changed medications since your No No last visit? Any new allergies or adverse reactions No No Had a fall/change in ADL's that may No No increase risk of falls Signs or symptoms of abuse and/or No No neglect since last visit Have you been in the hospital since your No No last visit? Has dressing in place as prescribed Yes Yes Has compression in place as prescribed N/A N/A Has offloadiing in place as prescribed N/A N/A Experienced any changes in pain level or No No management Left Footwear Regular Shoe Right Footwear Other Footwear (Comment) Other Footwear prosthesis RLE Pain Scale: 0-10 Numeric Is Patient Pain Free? Yes Yes WC - Nurse 1 - General Ulcer Measurement Start: 01/12/21 09:19 Freq: Status: Active Protocol: Activity Type Activity Date Activity User E-Sign Co-Sign Detail Recorded Client Recorded Date Recorded By Document 01/12/21 09:19 MW [id number] 01/12/21 09:27 MW Document 01/19/21 09:28 PL [id number] 01/19/21 09:32 PL 01/12/21 01/19/21 09:19 09:28 Wound Center Nurse 1 # 10 Right Groin -Combined with other wound No No -Current Size (cm) - Length 0.3 0.3 -Current Size (cm) - Width 0.3 0.3 -Current Size (cm) - Depth 0.1 0.1 -Total Square Cm 0.09 0.09 -Photo Taken No No -Epithelialization None Present None Present -Tunneling No No -Undermining/Tunneling No No -Circular Undermining No -Exudate Amt Small None Present -Exudate Type Serosanguineous -Wound Margin Flat & Intact -Granulation Amt None Present (0 Large (67-100%) %) -Granulation Quality N/A Quail -Slough/Fibrin Yes No -Necrosis Amt Large (67-100%) -Necrotic Tissue Type Adherent Slough -Structure Exposed N/A -Texture (Blanche-wound Skin Appearance) Assessed, No Abnormality Localized Edema ,Scarring -Moisture (Blanche-wound Skin Appearance) No Abnormality, No Abnormality Assessed -Color (Blanche-wound Skin Appearance) No Abnormality, No Abnormality Assessed -Temperature (Blanche-wound Skin No Abnormality No Abnormality Appearance) (Pt Warm) (Pt Warm) -Tenderness on Palpation (Blanche-wound No Skin Appearance) -Ulcer Cleansing Not Cleansed Rinsed/ Irrigated with Saline -Foul Odor after Cleansing No -Anesthetic Used 4% Lidocaine 4% Lidocaine Solution Solution Lower Limb Edema Present No WC - Nurse 2 - General Ulcer CM Notes Start: 01/12/21 09:19 Freq: Status: Active Protocol: Activity Type Activity Date Activity User E-Sign Co-Sign Detail Recorded Client Recorded Date Recorded By Document 01/12/21 12:50 PL [id number] 01/12/21 12:50 PL 01/12/21 12:50 Wound Center Nurse 2 -Time 09:39 -Correct Patient Yes -Correct Side, Site, Position Yes -Correct Procedure Yes -Procedure Performed Yes -Type of Procedure Debridement -Clinical Debridement Subcutaneous -Tissue Removed Subcutaneous -Post Debridement (cm) - Length 0.3 -Post Debridement (cm) - Width 0.3 -Post Debridement (cm) - Depth 0.1 -Total Square (Post) (cm) 0.09 -Area of Debridement (cm) - Length 0.3 -Area of Debridement (cm) - Width 0.3 -Total Square (Area) (cm) 0.09 -Tunneling No -Undermining/Tunneling No -Circular Undermining No -Wound/Ulcer Outcome Not Healed -Ulcer Cleansing Rinsed/ Irrigated with Saline -Foul Odor after Cleansing No -Bioengineered Tissue No -Debridement - Subq, 1st 20sq cm Yes Pain Scale: 0-10 Numeric Is Patient Pain Free? Yes WC - Nurse 3 - General Ulcer D/C NN Start: 01/12/21 09:19 Freq: Status: Active Protocol: Activity Type Activity Date Activity User E-Sign Co-Sign Detail Recorded Client Recorded Date Recorded By Document 01/12/21 09:48 MW [id number] 01/12/21 09:49 MW 01/12/21 09:48 Wound Care Nurse 3 # 10 Right Groin -Ulcer Cleansing Rinsed/ Irrigated with Saline -Foul Odor after Cleansing No -Negative Pressure Wound Therapy N/A -Other Dressing dakins wet to dry, 1/4 Nugauze -Primary Dressing Covered/Secured with Dry Gauze, Secured with Tape Treatment Response Procedure Tolerated Well Pain Scale: 0-10 Numeric Is Patient Pain Free? Yes Teaching: Wound Center Dressing Your Wound -Person Taught Patient -Teaching Method Discussion, Demonstration -Response to teaching Verbalize understanding WC - Visit Discharge Discharge Condition Stable Ambulatory Status Ambulatory Transportation Private Auto Accompanied by self Medication Reconcilliation completed & No provided to patient/care provider Clinical Summary of Care Provided Yes No debridement was completed: No debridement was completed today Assessment/Plan Assessment/Plan (1) Ulcer of right groin: CODE(S): L98.499 - Non-pressure chronic ulcer of skin of other sites with unspecified severity QUALIFIERS: Non-pressure ulcer stage: with fat layer exposed Qualified Code(s): L98.492 - Non-pressure chronic ulcer of skin of other sites with fat layer exposed (2) soft tissue radiation injury: (3) Soft tissue radionecrosis: CODE(S): L59.8 - Other specified disorders of the skin and subcutaneous tissue related to radiation; Y84.2 - Radiological procedure and radiotherapy as the cause of abnormal reaction of the patient, or of later complication, without mention of misadventure at the time of the procedure (4) Overweight (BMI 25.0-29.9): CODE(S): E66.3 - Overweight (5) History of uterine cancer: CODE(S): Z85.42 - Personal history of malignant neoplasm of other parts of uterus (6) History of melanoma: CODE(S): Z85.820 - Personal history of malignant melanoma of skin (7) Hyperlipidemia: CODE(S): E78.5 - Hyperlipidemia, unspecified (8) GERD (gastroesophageal reflux disease): CODE(S): K21.9 - Gastro-esophageal reflux disease without esophagitis (9) Obesity (BMI 30.0-34.9): CODE(S): E66.9 - Obesity, unspecified (10) Amputee, above knee: CODE(S): Z89.619 - Acquired absence of unspecified leg above knee PLAN: This is a 65-year-old female with a complex past medical history, much of which has been detailed above. She presented with a recurrence of her right groin ulceration, secondary to soft tissue radiation injury. The patient has been treated at our facility numerous times in the past. Her current ulceration recurred approximately 1 week prior to her presentation. We are to continue conservative treatment measures, which have proven to be successful previously. We are to discontinue the use of 0.25% Dakin's solution, and will return to the use of Fibracol, applied topically to the ulceration on a daily basis. The patient has been instructed to keep the area clean and dry, as its location in an intertriginous zone subjects the ulceration to body heat and perspiration. Nutritional optimization has been recommended. The patient is to return in 1 week for reassessment. Total time: 28 minutes.
[2021-01-26 09:19] VITALS: BP 153/74; PULSE 82; RESP 18; TEMP 36.4; BMI 29.7
--- NOTE | 2021-01-26 09:56 | PCM.WC.HP ---
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 The patient was diagnosed with melanoma of the right calf in the 1969's. 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 The patient underwent excision of her melanoma with lymphadenectomy in the right groin. She also underwent lengthy radiation treatments at the [facility] in [place], [place]. Melanoma recurred, and the patient was subsequently treated with monoclonal antibodies in 1984. 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 Treatment included local ulcer care and hyperbaric oxygen therapy. She underwent a total of nearly 90 treatments of hyperbaric oxygen therapy. It is known that she tolerated the therapies well, and derived significant benefit. 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 She has also undergone several sessions of hyperbaric oxygen therapy. She is also received a series of 10 EpiFix allografts in the course of previous treatment. Each of the patient's prior courses of treatment in our facility have been protracted, with difficulties encountered in achieving complete healing. Her most recent course of treatment ended with successful healing and discharge in August 2020. The patient presented at this time with a recurrence of her right groin ulceration, again thought to be secondary to soft tissue radiation injury. The ulceration recurred spontaneously approximately 1 week prior to her presentation. The patient indicates that her health history has not changed since she was last treated in our facility. [facility] Home Medications famotidine 20 mg PO 06/20/17 [History Last Taken Unknown] pravastatin 20 mg PO DAILY 06/20/17 [History Last Taken Unknown] Allergy/AdvReac Type Severity Reaction Status Date / Time No Known Allergies Allergy Verified 05/26/20 09:19 Social History Smoking Status: Former smoker Vital Signs Vital Signs Vital Signs: 01/26/21 09:19 Temperature 97.5 F L Temperature Source Temporal Pulse Rate 82 Respiratory Rate 18 Blood Pressure 153/74 H Blood Pressure Mean 100 Blood Pressure Source Monitor Weight Body Mass Index (BMI) 29.7 Physical Exam Const alert, oriented x3, no apparent distress and well nourished General Appearance: cooperative, comfortable, well kempt and well developed Orientation / Consciousness: awake, oriented to person, oriented to place and oriented to time HEENT normocephalic and head/scalp atraumatic Head and Scalp: normal to inspection, normocephalic and atraumatic External Ear: external ears normal Eyes PERRL and EOMs intact bilaterally General Eye: normal appearance of both eyes Resp normal respiratory effort, normal air movement, no retractions and no use of accessory muscles Effort and Inspection: able to speak in complete sentences Extremity no calf tenderness Extremity Narrative: A well-healed right above-knee amputation stump is noted. General Extremity: Negative for clubbing or cyanosis Skin Wound Narrative: The ulceration in the right groin persists. It is little changed in size or appearance. Dimensions are documented elsewhere. There is no sign of infection or cellulitis. There is a small amount of bioburden. Neuro oriented x3, CN's II-XII intact bilaterally and moves all extremities Sensorium / Orientation: awake, alert, oriented to person, oriented to place and oriented to time Psych Appearance: grossly normal and appropriate Attitude: calm Activity / Motor Behavior: appropriate eye contact Speech: normal speech Mood & Affect: euthymic mood Thought Process: normal thought process Thought Content: normal thought content Attention / Concentration: attention grossly intact Debridement Note Debridement Note Post-Debridement Measurements and Additional Note: Post-Debridement Measurements/Treatment - Nurse 1 - General Ulcer Assessment Start: 01/12/21 09:19 Freq: Status: Active Protocol: KISHA.XOCHITL Activity Type Activity Date Activity User E-Sign Co-Sign Detail Recorded Client Recorded Date Recorded By Document 01/12/21 09:19 MW [id number] 01/12/21 09:27 MW Document 01/19/21 09:28 PL [id number] 01/19/21 09:32 PL Document 01/26/21 09:19 DL [id number] 01/26/21 09:24 DL 01/12/21 01/19/21 01/26/21 09:19 09:28 09:19 - Today's Visit Information Type of service Follow-up Visit Follow-up Visit Follow-up 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/LEATHER ROLLER (Physician/LEATHER ROLLER (Physician/LEATHER ROLLER ) ) ) Arrival Mode Ambulatory Ambulatory Ambulatory Transfer Assistance None None None Accompanied by self Patient Identification Verified (Name & Yes Yes Yes ) Patient Requires Transmission-Based No No No Precautions Safety Precautions Fall Prevention NA Height and Weight Body Mass Index (BMI) 29.7 29.7 29.7 BMI Classification Overweight Overweight Overweight Vital Signs Temperature (97.8 F-99.1 F) 97.7 F L 98.2 F 97.5 F L Temperature Source Temporal Temporal Temporal Pulse Rate (60-100) 87 86 82 Pulse Location Monitor Monitor Respiratory Rate (12-18) 16 18 18 Respiratory rate source Observation Observation Oxygen Delivery Method Room Air Blood Pressure (90/60-120/80) 138/78 H 155/88 H 153/74 H Blood Pressure Mean 98 110 100 Source Monitor Monitor Position Sitting Blood Pressure Location Left Arm History Since Last Visit- (Skip if this is Patient's initial visit) Have you changed medications since your No No No last visit? Any new allergies or adverse reactions No No No Had a fall/change in ADL's that may No No No increase risk of falls Signs or symptoms of abuse and/or No No No neglect since last visit Have you been in the hospital since your No No No last visit? Has dressing in place as prescribed Yes Yes Yes Has compression in place as prescribed N/A N/A N/A Has offloadiing in place as prescribed N/A N/A Yes Experienced any changes in pain level or No No No management Left Footwear Regular Shoe Right Footwear Other Footwear (Comment) Other Footwear prosthesis RLE Pain Scale: 0-10 Numeric Is Patient Pain Free? Yes Yes Yes WC - Nurse 1 - General Ulcer Measurement Start: 01/12/21 09:19 Freq: Status: Active Protocol: Activity Type Activity Date Activity User E-Sign Co-Sign Detail Recorded Client Recorded Date Recorded By Document 01/12/21 09:19 MW [id number] 01/12/21 09:27 MW Document 01/19/21 09:28 PL [id number] 01/19/21 09:32 PL Document 01/26/21 09:19 DL [id number] 01/26/21 09:24 DL 01/12/21 01/19/21 01/26/21 09:19 09:28 09:19 Wound Center Nurse 1 # 10 Right Groin -Combined with other wound No No -Current Size (cm) - Length 0.3 0.3 0.3 -Current Size (cm) - Width 0.3 0.3 0.2 -Current Size (cm) - Depth 0.1 0.1 0.2 -Total Square Cm 0.09 0.09 0.06 -Photo Taken No No No -Epithelialization None Present None Present -Tunneling No No -Undermining/Tunneling No No -Circular Undermining No -Exudate Amt Small None Present None Present -Exudate Type Serosanguineous -Wound Margin Flat & Intact Distinct, Outline Attached -Granulation Amt None Present (0 Large (67-100%) Small (1-33%) %) -Granulation Quality N/A [place]actus Flats Cactus Flats -Slough/Fibrin Yes No -Necrosis Amt Large (67-100%) None Present (0 %) -Necrotic Tissue Type Adherent Slough -Structure Exposed N/A N/A -Texture (Blanche-wound Skin Appearance) Assessed, No Abnormality Scarring Localized Edema ,Scarring -Moisture (Blanche-wound Skin Appearance) No Abnormality, No Abnormality No Abnormality Assessed -Color (Blanche-wound Skin Appearance) No Abnormality, No Abnormality Rubor Assessed -Temperature (Blanche-wound Skin No Abnormality No Abnormality No Abnormality Appearance) (Pt Warm) (Pt Warm) (Pt Warm) -Tenderness on Palpation (Blanche-wound No No Skin Appearance) -Ulcer Cleansing Not Cleansed Rinsed/ Rinsed/ Irrigated with Irrigated with Saline Saline -Foul Odor after Cleansing No No -Anesthetic Used 4% Lidocaine 4% Lidocaine Solution Solution Lower Limb Edema Present No WC - Nurse 2 - General Ulcer CM Notes Start: 01/12/21 09:19 Freq: Status: Active Protocol: Activity Type Activity Date Activity User E-Sign Co-Sign Detail Recorded Client Recorded Date Recorded By Document 01/12/21 12:50 PL [id number] 01/12/21 12:50 PL Document 01/19/21 14:17 PL [id number] 01/19/21 14:17 PL 01/12/21 01/19/21 12:50 14:17 Wound Center Nurse 2 # 10 Right Groin -Time 09:39 -Correct Patient Yes -Correct Side, Site, Position Yes -Correct Procedure Yes -Procedure Performed Yes No -Type of Procedure Debridement -Clinical Debridement Subcutaneous -Tissue Removed Subcutaneous -Post Debridement (cm) - Length 0.3 -Post Debridement (cm) - Width 0.3 -Post Debridement (cm) - Depth 0.1 -Total Square (Post) (cm) 0.09 -Area of Debridement (cm) - Length 0.3 -Area of Debridement (cm) - Width 0.3 -Total Square (Area) (cm) 0.09 -Tunneling No -Undermining/Tunneling No -Circular Undermining No -Wound/Ulcer Outcome Not Healed -Ulcer Cleansing Rinsed/ Irrigated with Saline -Foul Odor after Cleansing No -Bioengineered Tissue No -Debridement - Subq, 1st 20sq cm Yes Pain Scale: 0-10 Numeric Is Patient Pain Free? Yes - Nurse 3 - General Ulcer D/C NN Start: 01/12/21 09:19 Freq: Status: Active Protocol: Activity Type Activity Date Activity User E-Sign Co-Sign Detail Recorded Client Recorded Date Recorded By Document 01/12/21 09:48 MW [id number] 01/12/21 09:49 MW Document 01/19/21 09:59 [facility] [id number] 01/19/21 09:59 BM Document 01/26/21 09:45 KR [id number] 01/26/21 09:46 KR 01/12/21 01/19/21 01/26/21 09:48 09:59 09:45 Wound Care Nurse 3 # 10 Right Groin -Ulcer Cleansing Rinsed/ Rinsed/ Rinsed/ Irrigated with Irrigated with Irrigated with Saline Saline Saline -Foul Odor after Cleansing No No -Negative Pressure Wound Therapy N/A -Primary Dressing Applied Fibracol Plus 4x4 -Other Dressing dakins wet to dry, 1/4 Nugauze -Primary Dressing Covered/Secured with Dry Gauze, Dry Gauze, Secured with Secured with Tape Tape -Fibracol Plus 4x4 1 Treatment Response Procedure Procedure Tolerated Well Tolerated Well Pain Scale: 0-10 Numeric Is Patient Pain Free? Yes Yes Yes Teaching: Wound Center Dressing Your Wound -Person Taught Patient -Teaching Method Discussion, Demonstration -Response to teaching Verbalize understanding WC - Visit Discharge Discharge Condition Stable Stable Stable Ambulatory Status Ambulatory Ambulatory Ambulatory Transportation Private Auto Private Auto Private Auto Accompanied by self Medication Reconcilliation completed & No provided to patient/care provider Clinical Summary of Care Provided Yes Wound debrided: Right groin Laterality: Right Type of Debridement: Excisional debridement Anesthesia Used: 5% Lidocaine Gel Depth: Down to and including healthy tissue and in the subcutaneous layer Percentage of wound debrided: 100 Instrument Used: 3mm curette Tissue Removed: Bioburden Severity: Fat Layer Exposed Amount of bleeding with debridement: Mild Bleeding Controlled with: Compression and gauze Patient tolerated procedure: Patient tolerated procedure well Assessment/Plan Assessment/Plan (1) soft tissue radiation injury: (2) Soft tissue radionecrosis: CODE(S): L59.8 - Other specified disorders of the skin and subcutaneous tissue related to radiation; Y84.2 - Radiological procedure and radiotherapy as the cause of abnormal reaction of the patient, or of later complication, without mention of misadventure at the time of the procedure (3) Overweight (BMI 25.0-29.9): CODE(S): E66.3 - Overweight (4) History of uterine cancer: CODE(S): Z85.42 - Personal history of malignant neoplasm of other parts of uterus (5) History of melanoma: CODE(S): Z85.820 - Personal history of malignant melanoma of skin (6) Hyperlipidemia: CODE(S): E78.5 - Hyperlipidemia, unspecified (7) GERD (gastroesophageal reflux disease): CODE(S): K21.9 - Gastro-esophageal reflux disease without esophagitis (8) Ulcer of right groin: CODE(S): L98.499 - Non-pressure chronic ulcer of skin of other sites with unspecified severity QUALIFIERS: Non-pressure ulcer stage: with fat layer exposed Qualified Code(s): L98.492 - Non-pressure chronic ulcer of skin of other sites with fat layer exposed (9) Obesity (BMI 30.0-34.9): CODE(S): E66.9 - Obesity, unspecified (10) Amputee, above knee: CODE(S): Z89.619 - Acquired absence of unspecified leg above knee PLAN: This is a 65-year-old female with a complex past medical history, much of which has been detailed above. She presented with a recurrence of her right groin ulceration, secondary to soft tissue radiation injury. The patient has been treated at our facility numerous times in the past. Her current ulceration recurred approximately 1 week prior to her presentation. We are to continue conservative treatment measures, which have proven to be successful previously. We are to continue the use of Fibracol, applied topically to the ulceration on a daily basis. The patient has been instructed to keep the area clean and dry, as its location in an intertriginous zone subjects the ulceration to body heat and perspiration. Nutritional optimization has been recommended. The patient is to return in 2 weeks for reassessment. Total time: 29 minutes.
== END 2021-02-06 23:59 ==
LOC: WC 09:15
PROVIDERS: PCP Family Medicine; Visit Provider Surgery
DX: L59.8 Other specified disorders of the skin and subcutaneous tissue related to radiation (principal); L98.492 Non-pressure chronic ulcer of skin of other sites with fat layer exposed; Y84.2 Radiological procedure and radiotherapy as the cause of abnormal reaction of the patient, or of later complication, without mention of misadventure at the time of the procedure; E78.5 Hyperlipidemia, unspecified; K21.9 Gastro-esophageal reflux disease without esophagitis; E66.9 Obesity, unspecified; Z89.611 Acquired absence of right leg above knee; Z85.820 Personal history of malignant melanoma of skin; Z86.14 Personal history of Methicillin resistant Staphylococcus aureus infection; Z79.899 Other long term (current) drug therapy; Z87.891 Personal history of nicotine dependence; Z68.29 Body mass index [BMI] 29.0-29.9, adult; Z85.42 Personal history of malignant neoplasm of other parts of uterus
CPT/HCPCS: 11042; 99213; G0463

== ENCOUNTER 2021-03-09 09:15 | Outpatient (RCR) | payer MEDICARE, OTHER, SELFPAY ==
[2021-02-07 00:30] VITALS: BP 153/74; PULSE 82; RESP 18; TEMP 36.4
[2021-02-09 09:30] VITALS: BP 163/75; PULSE 82; BMI 29.7
--- NOTE | 2021-02-09 09:38 | HP.PCM_ITS ---
History of Present Illness Date of Service: 02/09/21 Chief Complaint: Soft tissue radionecrosis of the right groin with open ul ceration History of Wound: This is a 65-year-old female with a long and complicated past medical history. The patient was diagnosed with melanoma of the right calf in the 1969's. 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 The patient underwent excision of her melanoma with lymphadenectomy in the right groin. She also underwent lengthy radiation treatments at the [facility] in [place], [place]. Melanoma recurred, and the patient was subsequently treated with monoclonal antibodies in 1984. 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 Treatment included local ulcer care and hyperbaric oxygen therapy. She underwent a total of nearly 90 treatments of hyperbaric oxygen therapy. It is known that she tolerated the therapies well, and derived significant benefit. 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 She has also undergone several sessions of hyperbaric oxygen therapy. She is also received a series of 10 EpiFix allografts in the course of previous treatment. Each of the patient's prior courses of treatment in our facility have been protracted, with difficulties encountered in achieving complete healing. Her most recent course of treatment ended with successful healing and discharge in August 2020. The patient presented at this time with a recurrence of her right groin ulceration, again thought to be secondary to soft tissue radiation injury. The ulceration recurred spontaneously approximately 1 week prior to her presentation. The patient indicates that her health history has not changed since she was last treated in our facility. [facility] Home Medications famotidine 20 mg PO 06/20/17 [History Last Taken Unknown] pravastatin 20 mg PO DAILY 06/20/17 [History Last Taken Unknown] Allergy/AdvReac Type Severity Reaction Status Date / Time No Known Allergies Allergy Verified 05/26/20 09:19 Social History Smoking Status: Former smoker Vital Signs Vital Signs Vital Signs: 02/09/21 09:30 Pulse Rate 82 Blood Pressure 163/75 H Blood Pressure Mean 104 Blood Pressure Source Monitor Weight Body Mass Index (BMI) 29.7 Physical Exam Const alert, oriented x3, no apparent distress and well nourished General Appearance: cooperative, comfortable, well kempt and well developed Orientation / Consciousness: awake, oriented to person, oriented to place and oriented to time HEENT normocephalic and head/scalp atraumatic Head and Scalp: normal to inspection, normocephalic and atraumatic External Ear: external ears normal Eyes PERRL and EOMs intact bilaterally General Eye: normal appearance of both eyes Resp normal respiratory effort, normal air movement, no retractions and no use of accessory muscles Effort and Inspection: able to speak in complete sentences Extremity no calf tenderness Extremity Narrative: A well-healed right above-knee amputation stump is noted. General Extremity: Negative for clubbing or cyanosis Skin Wound Narrative: The ulceration in the right groin persists. It appears to be smaller in size. Dimensions are documented elsewhere. There is no sign of infection or cellulitis. There is a small amount of bioburden. Neuro oriented x3, CN's II-XII intact bilaterally and moves all extremities Sensorium / Orientation: awake, alert, oriented to person, oriented to place and oriented to time Psych Appearance: grossly normal and appropriate Attitude: calm Activity / Motor Behavior: appropriate eye contact Speech: normal speech Mood & Affect: euthymic mood Thought Process: normal thought process Thought Content: normal thought content Attention / Concentration: attention grossly intact Debridement Note Debridement Note Post-Debridement Measurements and Additional Note: Post-Debridement Measurements/Treatment - Nurse 1 - General Ulcer Assessment Start: 02/09/21 09:29 Freq: Status: Active Protocol: WC.LOWHALLIET Activity Type Activity Date Activity User E-Sign Co-Sign Detail Recorded Client Recorded Date Recorded By Document 02/09/21 09:30 KR [id number] 02/09/21 09:35 SONNY 02/09/21 09:30 - Today's Visit Information Type of service Follow-up 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/BODY BUILDER ) Arrival Mode Ambulatory Patient Identification Verified (Name & Yes ) Height and Weight Body Mass Index (BMI) 29.7 BMI Classification Overweight Vital Signs Pulse Rate (60-100) 82 Blood Pressure (90/60-120/80) 163/75 H Blood Pressure Mean 104 Source Monitor History Since Last Visit- (Skip if this is Patient's initial visit) Have you changed medications since your No last visit? Any new allergies or adverse reactions No Had a fall/change in ADL's that may No increase risk of falls Signs or symptoms of abuse and/or No neglect since last visit Have you been in the hospital since your No last visit? Has dressing in place as prescribed Yes Has compression in place as prescribed N/A Has offloadiing in place as prescribed N/A Left Footwear Regular Shoe Right Footwear Regular Shoe WC - Nurse 1 - General Ulcer Measurement Start: 02/09/21 09:29 Freq: Status: Active Protocol: Activity Type Activity Date Activity User E-Sign Co-Sign Detail Recorded Client Recorded Date Recorded By Document 02/09/21 09:30 SONNY [id number] 02/09/21 09:35 SONNY 02/09/21 09:30 Wound Center Nurse 1 # 10 Right Groin -Combined with other wound No -Current Size (cm) - Length 0.4 -Current Size (cm) - Width 0.3 -Current Size (cm) - Depth 0.2 -Total Square Cm 0.12 -Photo Taken No -Epithelialization None Present -Undermining/Tunneling No -Circular Undermining No -Wound Margin Distinct, Outline Attached -Granulation Amt None Present (0 %) -Texture (Blanche-wound Skin Appearance) No Abnormality, Assessed -Color (Blanche-wound Skin Appearance) No Abnormality, Assessed -Temperature (Blanche-wound Skin No Abnormality Appearance) (Pt Warm) -Ulcer Cleansing Rinsed/ Irrigated with Saline -Foul Odor after Cleansing No -Anesthetic Used 4% Lidocaine Solution Wound debrided: Right groin Laterality: Right Type of Debridement: Excisional debridement Anesthesia Used: 5% Lidocaine Gel Depth: Down to and including healthy tissue and in the subcutaneous layer Percentage of wound debrided: 100 Instrument Used: 3mm curette Tissue Removed: Bioburden Severity: Fat Layer Exposed Amount of bleeding with debridement: Mild Bleeding Controlled with: Compression and gauze Patient tolerated procedure: Patient tolerated procedure well Assessment/Plan Assessment/Plan (1) Ulcer of right groin: CODE(S): L98.499 - Non-pressure chronic ulcer of skin of other sites with unspecified severity QUALIFIERS: Non-pressure ulcer stage: with fat layer exposed Qualified Code(s): L98.492 - Non-pressure chronic ulcer of skin of other sites with fat layer exposed (2) soft tissue radiation injury: (3) Soft tissue radionecrosis: CODE(S): L59.8 - Other specified disorders of the skin and subcutaneous tissue related to radiation; Y84.2 - Radiological procedure and radiotherapy as the cause of abnormal reaction of the patient, or of later complication, without mention of misadventure at the time of the procedure (4) Obesity (BMI 30.0-34.9): CODE(S): E66.9 - Obesity, unspecified (5) Overweight (BMI 25.0-29.9): CODE(S): E66.3 - Overweight (6) History of uterine cancer: CODE(S): Z85.42 - Personal history of malignant neoplasm of other parts of uterus (7) History of melanoma: CODE(S): Z85.820 - Personal history of malignant melanoma of skin (8) Hyperlipidemia: CODE(S): E78.5 - Hyperlipidemia, unspecified (9) GERD (gastroesophageal reflux disease): CODE(S): K21.9 - Gastro-esophageal reflux disease without esophagitis PLAN: This is a 65-year-old female with a complex past medical history, much of which has been detailed above. She presented with a recurrence of her right groin ulceration, secondary to soft tissue radiation injury. The patient has been treated at our facility numerous times in the past. Her current ulceration recurred approximately 1 week prior to her presentation. We are to continue conservative treatment measures, which have proven to be successful previously. We are to continue the use of Fibracol, applied topically to the ulceration on a daily basis. The patient has been instructed to keep the area clean and dry, as its location in an intertriginous zone subjects the ulceration to body heat and perspiration. Nutritional optimization has been recommended. The patient is to return in 2 weeks for reassessment. Total time: 28 minutes.
[2021-02-23 09:13] VITALS: BP 123/72; PULSE 86; TEMP 36.2; BMI 29.7
--- NOTE | 2021-02-23 10:11 | PCM.WC.HP ---
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 The patient was diagnosed with melanoma of the right calf in the 1969's. 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 The patient underwent excision of her melanoma with lymphadenectomy in the right groin. She also underwent lengthy radiation treatments at the [facility] in [place], [place]. Melanoma recurred, and the patient was subsequently treated with monoclonal antibodies in 1984. 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 Treatment included local ulcer care and hyperbaric oxygen therapy. She underwent a total of nearly 90 treatments of hyperbaric oxygen therapy. It is known that she tolerated the therapies well, and derived significant benefit. 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 She has also undergone several sessions of hyperbaric oxygen therapy. She is also received a series of 10 EpiFix allografts in the course of previous treatment. Each of the patient's prior courses of treatment in our facility have been protracted, with difficulties encountered in achieving complete healing. Her most recent course of treatment ended with successful healing and discharge in August 2020. The patient presented at this time with a recurrence of her right groin ulceration, again thought to be secondary to soft tissue radiation injury. The ulceration recurred spontaneously approximately 1 week prior to her presentation. The patient indicates that her health history has not changed since she was last treated in our facility. [facility] Home Medications famotidine 20 mg PO 06/20/17 [History Last Taken Unknown] pravastatin 20 mg PO DAILY 06/20/17 [History Last Taken Unknown] Allergy/AdvReac Type Severity Reaction Status Date / Time No Known Allergies Allergy Verified 05/26/20 09:19 Social History Smoking Status: Former smoker Vital Signs Vital Signs Vital Signs: 02/23/21 09:13 Temperature 97.2 F L Temperature Source Temporal Pulse Rate 86 Blood Pressure 123/72 H Blood Pressure Mean 89 Blood Pressure Source Monitor Weight Body Mass Index (BMI) 29.7 Physical Exam Const alert, oriented x3, no apparent distress and well nourished General Appearance: cooperative, comfortable, well kempt and well developed Orientation / Consciousness: awake, oriented to person, oriented to place and oriented to time HEENT normocephalic and head/scalp atraumatic Head and Scalp: normal to inspection, normocephalic and atraumatic External Ear: external ears normal Eyes PERRL and EOMs intact bilaterally General Eye: normal appearance of both eyes Resp normal respiratory effort, normal air movement, no retractions and no use of accessory muscles Effort and Inspection: able to speak in complete sentences Extremity no calf tenderness Extremity Narrative: A well-healed right above-knee amputation stump is noted. General Extremity: Negative for clubbing or cyanosis Skin Wound Narrative: The ulceration in the right groin persists. It is little changed in size or appearance. Dimensions are documented elsewhere. There is no sign of infection or cellulitis. There is a small amount of bioburden. Neuro oriented x3, CN's II-XII intact bilaterally and moves all extremities Sensorium / Orientation: awake, alert, oriented to person, oriented to place and oriented to time Psych Appearance: grossly normal and appropriate Attitude: calm Activity / Motor Behavior: appropriate eye contact Speech: normal speech Mood & Affect: euthymic mood Thought Process: normal thought process Thought Content: normal thought content Attention / Concentration: attention grossly intact Debridement Note Debridement Note Post-Debridement Measurements and Additional Note: Post-Debridement Measurements/Treatment - Nurse 1 - General Ulcer Assessment Start: 02/09/21 09:29 Freq: Status: Active Protocol: WC.LOWEXT Activity Type Activity Date Activity User E-Sign Co-Sign Detail Recorded Client Recorded Date Recorded By Document 02/09/21 09:30 KR [id number] 02/09/21 09:35 KR Document 02/23/21 09:13 AK [id number] 02/23/21 09:24 AK 02/09/21 02/23/21 09:30 09:13 - Today's Visit Information Type of service Follow-up Visit Follow-up 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/CAUSTIC PURIFICATION OPERATOR (Physician/CAUSTIC PURIFICATION OPERATOR ) ) Arrival Mode Ambulatory Ambulatory Patient Identification Verified (Name & Yes Yes ) Height and Weight Body Mass Index (BMI) 29.7 29.7 BMI Classification Overweight Overweight Temperature (97.8 F-99.1 F) 97.2 F L Temperature Source Temporal Vital Signs Pulse Rate (60-100) 82 86 Pulse Location Monitor Blood Pressure (90/60-120/80) 163/75 H 123/72 H Blood Pressure Mean 104 89 Source Monitor Monitor History Since Last Visit- (Skip if this is Patient's initial visit) Have you changed medications since your No No last visit? Any new allergies or adverse reactions No No Had a fall/change in ADL's that may No No increase risk of falls Signs or symptoms of abuse and/or No No neglect since last visit Have you been in the hospital since your No No last visit? Has dressing in place as prescribed Yes Yes Has compression in place as prescribed N/A N/A Has offloadiing in place as prescribed N/A N/A Left Footwear Regular Shoe Regular Shoe Right Footwear Regular Shoe Regular Shoe WC - Nurse 1 - General Ulcer Measurement Start: 02/09/21 09:29 Freq: Status: Active Protocol: Activity Type Activity Date Activity User E-Sign Co-Sign Detail Recorded Client Recorded Date Recorded By Document 02/09/21 09:30 KR [id number] 02/09/21 09:35 KR Document 02/23/21 09:13 AK [id number] 02/23/21 09:24 AK 02/09/21 02/23/21 09:30 09:13 Wound Center Nurse 1 # 10 Right Groin -Combined with other wound No -Current Size (cm) - Length 0.4 0.3 -Current Size (cm) - Width 0.3 0.2 -Current Size (cm) - Depth 0.2 0.1 -Total Square Cm 0.12 0.06 -Photo Taken No No -Epithelialization None Present -Tunneling No -Undermining/Tunneling No No -Circular Undermining No No -Exudate Amt None Present -Wound Margin Distinct, Distinct, Outline Outline Attached Attached -Granulation Amt None Present (0 None Present (0 %) %) -Slough/Fibrin No -Necrosis Amt None Present (0 %) -Structure Exposed N/A -Texture (Blanche-wound Skin Appearance) No Abnormality, No Abnormality, Assessed Assessed -Moisture (Blanche-wound Skin Appearance) No Abnormality, Assessed -Color (Blanche-wound Skin Appearance) No Abnormality, No Abnormality, Assessed Assessed -Temperature (Blanche-wound Skin No Abnormality No Abnormality Appearance) (Pt Warm) (Pt Warm) -Tenderness on Palpation (Blanche-wound No Skin Appearance) -Ulcer Cleansing Rinsed/ Rinsed/ Irrigated with Irrigated with Saline Saline -Foul Odor after Cleansing No -Anesthetic Used 4% Lidocaine 5% Lidocaine Solution Gel WC - Nurse 2 - General Ulcer CM Notes Start: 02/09/21 09:29 Freq: Status: Active Protocol: Activity Type Activity Date Activity User E-Sign Co-Sign Detail Recorded Client Recorded Date Recorded By Document 02/09/21 12:00 PL [id number] 02/09/21 12:01 PL 02/09/21 12:00 Wound Center Nurse 2 -Time 09:34 -Correct Patient Yes -Correct Side, Site, Position Yes -Correct Procedure Yes -Procedure Performed Yes -Type of Procedure Debridement -Clinical Debridement Subcutaneous -Tissue Removed Subcutaneous -Post Debridement (cm) - Length 0.4 -Post Debridement (cm) - Width 0.3 -Post Debridement (cm) - Depth 0.2 -Total Square (Post) (cm) 0.12 -Area of Debridement (cm) - Length 0.4 -Area of Debridement (cm) - Width 0.3 -Total Square (Area) (cm) 0.12 -Tunneling No -Undermining/Tunneling No -Circular Undermining No -Wound/Ulcer Outcome Not Healed -Ulcer Cleansing Rinsed/ Irrigated with Saline -Foul Odor after Cleansing No -Bioengineered Tissue No -Bleeding Controlled with Pressure -Treatment Response Procedure Tolerated Well -Debridement - Subq, 1st 20sq cm Yes WC - Nurse 3 - General Ulcer D/C NN Start: 02/09/21 09:29 Freq: Status: Active Protocol: Activity Type Activity Date Activity User E-Sign Co-Sign Detail Recorded Client Recorded Date Recorded By Document 02/09/21 09:45 AK [id number] 02/09/21 09:46 AK 02/09/21 09:45 Wound Care Nurse 3 -Ulcer Cleansing Rinsed/ Irrigated with Saline -Foul Odor after Cleansing No -Primary Dressing Applied Fibracol Plus 4x4 -Primary Dressing Covered/Secured with Dry Gauze, Secured with Tape -Fibracol Plus 4x4 0 Wound debrided: Right groin Laterality: Right Type of Debridement: Excisional debridement Anesthesia Used: 5% Lidocaine Gel Depth: Down to and including healthy tissue and in the subcutaneous layer Percentage of wound debrided: 100 Instrument Used: 3mm curette Tissue Removed: Bioburden Severity: Fat Layer Exposed Amount of bleeding with debridement: Mild Bleeding Controlled with: Compression and gauze Patient tolerated procedure: Patient tolerated procedure well Assessment/Plan Assessment/Plan (1) Amputee, above knee: CODE(S): Z89.619 - Acquired absence of unspecified leg above knee (2) soft tissue radiation injury: (3) History of melanoma: CODE(S): Z85.820 - Personal history of malignant melanoma of skin (4) Overweight (BMI 25.0-29.9): CODE(S): E66.3 - Overweight (5) History of uterine cancer: CODE(S): Z85.42 - Personal history of malignant neoplasm of other parts of uterus (6) Hyperlipidemia: CODE(S): E78.5 - Hyperlipidemia, unspecified (7) GERD (gastroesophageal reflux disease): CODE(S): K21.9 - Gastro-esophageal reflux disease without esophagitis (8) Ulcer of right groin: CODE(S): L98.499 - Non-pressure chronic ulcer of skin of other sites with unspecified severity QUALIFIERS: Non-pressure ulcer stage: with fat layer exposed Qualified Code(s): L98.492 - Non-pressure chronic ulcer of skin of other sites with fat layer exposed (9) Obesity (BMI 30.0-34.9): CODE(S): E66.9 - Obesity, unspecified (10) Soft tissue radionecrosis: CODE(S): L59.8 - Other specified disorders of the skin and subcutaneous tissue related to radiation; Y84.2 - Radiological procedure and radiotherapy as the cause of abnormal reaction of the patient, or of later complication, without mention of misadventure at the time of the procedure PLAN: This is a 66-year-old female with a complex past medical history, much of which has been detailed above. She presented with a recurrence of her right groin ulceration, secondary to soft tissue radiation injury. The patient has been treated at our facility numerous times in the past. Her current ulceration recurred approximately 1 week prior to her presentation. We are to continue conservative treatment measures, which have proven to be successful previously. We are to continue the use of Fibracol, applied topically to the ulceration on a daily basis. The patient has been instructed to keep the area clean and dry, as its location in an intertriginous zone subjects the ulceration to body heat and perspiration. Nutritional optimization has been recommended. The patient is to return in 2 weeks for reassessment. Total time: 29 minutes.
[2021-03-09 09:26] VITALS: BP 144/77; PULSE 80; TEMP 36.3; BMI 29.7
--- NOTE | 2021-03-09 10:49 | PCM.WC.HP ---
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 The patient was diagnosed with melanoma of the right calf in the 1969's. 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 The patient underwent excision of her melanoma with lymphadenectomy in the right groin. She also underwent lengthy radiation treatments at the [facility] in [place], [place]. Melanoma recurred, and the patient was subsequently treated with monoclonal antibodies in 1984. 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 Treatment included local ulcer care and hyperbaric oxygen therapy. She underwent a total of nearly 90 treatments of hyperbaric oxygen therapy. It is known that she tolerated the therapies well, and derived significant benefit. 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 She has also undergone several sessions of hyperbaric oxygen therapy. She is also received a series of 10 EpiFix allografts in the course of previous treatment. Each of the patient's prior courses of treatment in our facility have been protracted, with difficulties encountered in achieving complete healing. Her most recent course of treatment ended with successful healing and discharge in August 2020. The patient presented at this time with a recurrence of her right groin ulceration, again thought to be secondary to soft tissue radiation injury. The ulceration recurred spontaneously approximately 1 week prior to her presentation. The patient indicates that her health history has not changed since she was last treated in our facility. [facility] Home Medications famotidine 20 mg PO 06/20/17 [History Last Taken Unknown] pravastatin 20 mg PO DAILY 06/20/17 [History Last Taken Unknown] Allergy/AdvReac Type Severity Reaction Status Date / Time No Known Allergies Allergy Verified 05/26/20 09:19 Social History Smoking Status: Former smoker Vital Signs Vital Signs Vital Signs: 03/09/21 09:26 Temperature 97.4 F L Temperature Source Temporal Pulse Rate 80 Blood Pressure 144/77 H Blood Pressure Mean 99 Blood Pressure Source Monitor Weight Body Mass Index (BMI) 29.7 Physical Exam Const alert, oriented x3, no apparent distress and well nourished General Appearance: cooperative and well developed Orientation / Consciousness: awake, oriented to person, oriented to place and oriented to time HEENT normocephalic and head/scalp atraumatic Head and Scalp: normal to inspection, normocephalic and atraumatic External Ear: external ears normal Eyes PERRL and EOMs intact bilaterally General Eye: normal appearance of both eyes Resp normal respiratory effort, normal air movement, no retractions and no use of accessory muscles Effort and Inspection: able to speak in complete sentences Extremity no calf tenderness Extremity Narrative: A well-healed right above-knee amputation stump is noted. General Extremity: Negative for clubbing or cyanosis Skin Wound Narrative: The ulceration in the right groin now appears to be totally healed and epithelialized. Neuro oriented x3, CN's II-XII intact bilaterally and moves all extremities Sensorium / Orientation: awake, alert, oriented to person, oriented to place and oriented to time Psych Appearance: grossly normal and appropriate Attitude: calm Activity / Motor Behavior: appropriate eye contact Speech: normal speech Mood & Affect: euthymic mood Thought Process: normal thought process Thought Content: normal thought content Attention / Concentration: attention grossly intact Debridement Note Debridement Note No debridement was completed: No debridement was completed today Assessment/Plan Assessment/Plan (1) Ulcer of right groin: CODE(S): L98.499 - Non-pressure chronic ulcer of skin of other sites with unspecified severity QUALIFIERS: Non-pressure ulcer stage: with fat layer exposed Qualified Code(s): L98.492 - Non-pressure chronic ulcer of skin of other sites with fat layer exposed (2) Amputee, above knee: CODE(S): Z89.619 - Acquired absence of unspecified leg above knee (3) soft tissue radiation injury: (4) Overweight (BMI 25.0-29.9): CODE(S): E66.3 - Overweight (5) History of uterine cancer: CODE(S): Z85.42 - Personal history of malignant neoplasm of other parts of uterus (6) History of melanoma: CODE(S): Z85.820 - Personal history of malignant melanoma of skin (7) Hyperlipidemia: CODE(S): E78.5 - Hyperlipidemia, unspecified (8) GERD (gastroesophageal reflux disease): CODE(S): K21.9 - Gastro-esophageal reflux disease without esophagitis (9) Obesity (BMI 30.0-34.9): CODE(S): E66.9 - Obesity, unspecified (10) Soft tissue radionecrosis: CODE(S): L59.8 - Other specified disorders of the skin and subcutaneous tissue related to radiation; Y84.2 - Radiological procedure and radiotherapy as the cause of abnormal reaction of the patient, or of later complication, without mention of misadventure at the time of the procedure PLAN: This is a 66-year-old female with a complex past medical history, much of which has been detailed above. She presented with a recurrence of her right groin ulceration, secondary to soft tissue radiation injury. The patient has been treated at our facility numerous times in the past. Her current ulceration recurred approximately 1 week prior to her presentation. Upon presentation today, it appears as though the patient's right groin ulceration is totally healed and epithelialized. She is to be discharged, and will follow-up henceforth on an as-needed basis. Total time: 28 minutes.
== END 2021-03-09 10:48 | disposition home or self-care (01) ==
LOC: WC 09:15
PROVIDERS: PCP Family Medicine; Visit Provider Surgery
DX: L59.8 Other specified disorders of the skin and subcutaneous tissue related to radiation (principal); Y84.2 Radiological procedure and radiotherapy as the cause of abnormal reaction of the patient, or of later complication, without mention of misadventure at the time of the procedure; L98.492 Non-pressure chronic ulcer of skin of other sites with fat layer exposed; Z87.891 Personal history of nicotine dependence; E78.5 Hyperlipidemia, unspecified; Z85.820 Personal history of malignant melanoma of skin; K21.9 Gastro-esophageal reflux disease without esophagitis; Z68.29 Body mass index [BMI] 29.0-29.9, adult; E66.3 Overweight
CPT/HCPCS: 11042; 99213; G0463

== ENCOUNTER 2022-03-08 09:00 | Outpatient (RCR) | payer MEDICARE, OTHER, SELFPAY ==
[2022-02-15 08:53] VITALS: BP 159/88; PULSE 94; RESP 20; TEMP 36.5; BMI 29.8
--- NOTE | 2022-02-15 12:32 | HP.PCM_ITS ---
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 The patient was diagnosed with melanoma of the right calf in the 1969's. 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 The patient underwent excision of her melanoma with lymphadenectomy in the right groin. She also underwent lengthy radiation treatments at the [facility] in [place], [place]. Melanoma recurred, and the patient was subsequently treated with monoclonal antibodies in 1984. 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 Treatment included local ulcer care and hyperbaric oxygen therapy. She underwent a total of nearly 90 treatments of hyperbaric oxygen therapy. It is known that she tolerated the therapies well, and derived significant benefit. 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 She has also undergone several more sessions of hyperbaric oxygen therapy. She also received a series of 10 EpiFix allografts in the course of previous treatment. Each of the patient's prior courses of treatment in our facility have been protracted, with difficulties encountered in achieving complete healing. Her most recent course of treatment ended with successful healing and discharge in February 2021. The patient presented at this time with a recurrence of her right groin ulceration, again thought to be secondary to soft tissue radiation injury. The ulceration recurred spontaneously approximately 2-3 weeks prior to her presentation. The patient indicates that her health history has not changed since she was last treated in our facility. [facility] Medical History (Updated 02/15/22 @ 12:[address] Bassam De Jesus MD) Bilateral cataracts Cancer Hemorrhoids Knee pain Radiation injury Home Medications famotidine 20 mg tablet 20 mg PO 06/20/17 [History Last Taken Unknown] pravastatin 20 mg tablet 20 mg PO DAILY 06/20/17 [History Last Taken Unknown] famotidine 40 mg tablet PO 90 days ##90 12/26/17 [History Last Taken Unknown] pravastatin 20 mg tablet PO 90 days ##90 12/26/17 [History Last Taken Unknown] Allergy/AdvReac Type Severity Reaction Status Date / Time No Known Allergies Allergy Verified 02/15/22 09:08 Family History Other Heart disease Hypertension Surgical History Hx of AKA (above knee amputation) Social History Smoking Status: Former smoker alcohol intake: current alcohol intake frequency: holidays/special occasions only Vital Signs Vital Signs Vital Signs: 02/15/22 08:53 Temperature 97.7 F L Temperature Source Temporal Pulse Rate 94 Respiratory Rate 20 H Blood Pressure 159/88 H Blood Pressure Mean 111 Blood Pressure Source Monitor Weight Weight: 196 lb 1.696 oz Body Mass Index (BMI) 29.8 Physical Exam Const alert, oriented x3, no apparent distress and well nourished General Appearance: cooperative, comfortable, well kempt and well developed Orientation / Consciousness: awake, oriented to person, oriented to place and oriented to time Exam Limitations: no limitations HEENT normocephalic and head/scalp atraumatic Head and Scalp: normal to inspection, normocephalic and atraumatic External Ear: external ears normal Eyes PERRL and EOMs intact bilaterally General Eye: normal appearance of both eyes Resp normal respiratory effort, normal air movement, no retractions and no use of accessory muscles Effort and Inspection: able to speak in complete sentences Extremity no calf tenderness Extremity Narrative: A well-healed right above-knee amputation stump is noted. General Extremity: Negative for clubbing or cyanosis Skin Wound Narrative: Small ulcerations noted in the patient's right groin, the site of previous ulceration within last treated at our facility. There is no sign of infection or cellulitis. The base of the ulceration demonstrates some fibrotic and nonviable material. There is moderate amount of bioburden. There is no sign of infection or cellulitis. Dimensions are documented elsewhere. Neuro oriented x3, CN's II-XII intact bilaterally and moves all extremities Sensorium / Orientation: awake, alert, oriented to person, oriented to place and oriented to time Psych Appearance: grossly normal and appropriate Attitude: calm Activity / Motor Behavior: appropriate eye contact Speech: normal speech Mood & Affect: euthymic mood Thought Process: normal thought process Thought Content: normal thought content Attention / Concentration: attention grossly intact Debridement Note Debridement Note Wound debrided: Right groin Laterality: Right Type of Debridement: Excisional debridement Anesthesia Used: 5% Lidocaine Gel Depth: Down to and including healthy tissue and in the subcutaneous layer Percentage of wound debrided: 100 Instrument Used: 3mm curette Tissue Removed: Bioburden and nonviable tissue Severity: Fat Layer Exposed Amount of bleeding with debridement: Mild Bleeding Controlled with: Compression and gauze Patient tolerated procedure: Patient tolerated procedure well Post-Debridement Measurements and Additional Note: Post-Debridement Measurements/Treatment - Nurse 1 - General Ulcer Assessment Start: 02/15/22 08:53 Freq: Status: Active Protocol: MICHAEL Activity Type Activity Date Activity User E-sign Co-sign Detail Recorded Client Recorded Date Recorded By Document 02/15/22 08:53 DL [id number] 02/15/22 09:06 DL 02/15/22 08:53 - Today's Visit Information Type of service Initial Visit Arrival Mode Ambulatory Transfer Assistance None Patient Identification Verified (Name & Yes ) Patient Requires Transmission-Based No Precautions Height and Weight Height 5 ft 8 in Weight 196 lb 1.696 oz Weight in Pounds 196.1 lbs Body Mass Index (BMI) 29.8 BMI Classification Overweight BSA - Lori 2.03 Vital Signs Temperature (97.8 F-99.1 F) 97.7 F L Temperature Source Temporal Pulse Rate (60-100) 94 Pulse Location Monitor Respiratory Rate (12-18) 20 H Respiratory rate source Observation Blood Pressure (90/60-120/80) 159/88 H Blood Pressure Mean 111 Source Monitor Pain Scale: 0-10 Numeric Is Patient Pain Free? Yes Communication Assessment Preferred language Thai Able to Read Yes Able to Write Yes Communication Tools None Right Hearing Abillity Normal Visual Assistive Devices Glasses Teaching Assessment Preferences Verbal,Written, Demonstration Barriers to Learning None Readiness To Learn Excellent Willingness to Engage in Self Management High Activies Readiness to Engage in Self Management High Activities Anxiety Level Calm Cooperation Cooperative Perception Coherent Interest in Health Problem Asks Questions Education Importance Acknowledges Need Does Patient Smoke tobacco or other No substances Smoking Status Former smoker Is Patient Diabetic No Functional Assessment Recent Decline in Ability to Perform Denies Any Declines Culture/Hindu/Retail Client Solutions Consultant Cultural/Hindu Needs that may affect No Treatment Plan Would you allow our hospital polymerization kettle operator to No meet you for the purpose of spiritual/ emotional support? Retail Client Solutions Consultant to contact place of restoration No Teaching: Wound Center *Wound/Skin Impairment -Person Taught Patient Skin Care -Person Taught Patient Plan of Care Reviewed with Patient -Person Taught Patient *Nutrition -Person Taught Patient *Infection -Person Taught Patient *Welcome to the Wound Center -Person Taught Patient WC - Nurse 1 - General Ulcer Measurement Start: 02/15/22 08:53 Freq: Status: Active Protocol: Activity Type Activity Date Activity User E-sign Co-sign Detail Recorded Client Recorded Date Recorded By Document 02/15/22 08:53 DL [id number] 02/15/22 09:06 DL 02/15/22 08:53 Wound Center Nurse 1 # 10 Right Groin -Current Size (cm) - Length 0.8 -Current Size (cm) - Width 0.4 -Current Size (cm) - Depth 0.2 -Total Square Cm 0.32 -Photo Taken Yes -Classification - Thickness Full Thickness without Exposed Support Structure -Exudate Amt Small -Exudate Type Serosanguineous -Wound Margin Distinct, Outline Attached -Granulation Amt None Present (0 %) -Necrosis Amt Small (1-33%) -Necrotic Tissue Type Adherent Slough -Structure Exposed N/A -Texture (Blanche-wound Skin Appearance) Scarring -Moisture (Blanche-wound Skin Appearance) Dry/Scaly -Color (Blanche-wound Skin Appearance) No Abnormality -Temperature (Blanche-wound Skin No Abnormality Appearance) (Pt Warm) -Tenderness on Palpation (Blanche-wound No Skin Appearance) -Ulcer Cleansing Rinsed/ Irrigated with Saline -Foul Odor after Cleansing No -Anesthetic Used 4% Lidocaine Solution #11 R Groin -Current Size (cm) - Length 0.8 -Current Size (cm) - Width 0.4 -Current Size (cm) - Depth 0.2 -Total Square Cm 0.32 -Photo Taken Yes -Exudate Amt None Present -Wound Margin Distinct, Outline Attached -Granulation Amt None Present (0 %) -Necrosis Amt Large (67-100%) -Necrotic Tissue Type Adherent Slough -Structure Exposed N/A -Texture (Blanche-wound Skin Appearance) Scarring -Moisture (Blanche-wound Skin Appearance) Dry/Scaly -Color (Blanche-wound Skin Appearance) No Abnormality -Temperature (Blanche-wound Skin No Abnormality Appearance) (Pt Warm) -Tenderness on Palpation (Blanche-wound No Skin Appearance) -Ulcer Cleansing Rinsed/ Irrigated with Saline -Foul Odor after Cleansing No -Anesthetic Used 4% Lidocaine Solution - Nurse 2 - General Ulcer CM Notes Start: 02/15/22 08:53 Freq: Status: Active Protocol: Activity Type Activity Date Activity User E-sign Co-sign Detail Recorded Client Recorded Date Recorded By Document 02/15/22 10:02 PL [id number] 02/15/22 10:04 PL 02/15/22 10:02 Wound Center Nurse 2 -Time 09:18 -Correct Patient Yes -Correct Side, Site, Position Yes -Correct Procedure Yes -Procedure Performed Yes -Type of Procedure Debridement -Clinical Debridement Subcutaneous -Tissue Removed Subcutaneous -Post Debridement (cm) - Length 0.8 -Post Debridement (cm) - Width 0.4 -Post Debridement (cm) - Depth 0.2 -Total Square (Post) (cm) 0.32 -Area of Debridement (cm) - Length 0.8 -Area of Debridement (cm) - Width 0.4 -Total Square (Area) (cm) 0.32 -Tunneling No -Undermining/Tunneling No -Circular Undermining No -Wound/Ulcer Outcome Not Healed -Ulcer Cleansing Rinsed/ Irrigated with Saline -Foul Odor after Cleansing No -Bioengineered Tissue No -Bleeding Controlled with Pressure -Treatment Response Procedure Tolerated Well -Debridement - Subq, 1st 20sq cm Yes Pain Scale: 0-10 Numeric Is Patient Pain Free? Yes - Nurse 3 - General Ulcer D/C NN Start: 02/15/22 08:53 Freq: Status: Active Protocol: Activity Type Activity Date Activity User E-sign Co-sign Detail Recorded Client Recorded Date Recorded By Document 02/15/22 09:33 DL [id number] 02/15/22 09:33 DL 02/15/22 09:33 Wound Care Nurse 3 #11 R Groin -Ulcer Cleansing Rinsed/ Irrigated with Saline -Foul Odor after Cleansing No -Primary Dressing Applied C Hydrogel ($) -Primary Dressing Covered/Secured with Dry Gauze, Secured with Tape Treatment Response Procedure Tolerated Well Pain Scale: 0-10 Numeric Is Patient Pain Free? Yes WC - Visit Discharge Discharge Condition Stable Ambulatory Status Ambulatory Transportation Private Auto Assessment/Plan Assessment/Plan (1) Soft tissue radionecrosis: CODE(S): L59.8 - Other specified disorders of the skin and subcutaneous tissue related to radiation; Y84.2 - Radiological procedure and radiotherapy as the cause of abnormal reaction of the patient, or of later complication, without mention of misadventure at the time of the procedure (2) Radiation injury: CODE(S): T66.XXXA - Radiation sickness, unspecified, initial encounter QUALIFIERS: Encounter type: initial encounter Qualified Code(s): T66.XXXA - Radiation sickness, unspecified, initial encounter (3) soft tissue radiation injury: (4) History of melanoma: CODE(S): Z85.820 - Personal history of malignant melanoma of skin (5) Ulcer of right groin: CODE(S): L98.499 - Non-pressure chronic ulcer of skin of other sites with unspecified severity QUALIFIERS: Non-pressure ulcer stage: with fat layer exposed Qualified Code(s): L98.492 - Non-pressure chronic ulcer of skin of other sites with fat layer exposed (6) Amputee, above knee: CODE(S): Z89.619 - Acquired absence of unspecified leg above knee (7) Overweight (BMI 25.0-29.9): CODE(S): E66.3 - Overweight (8) History of uterine cancer: CODE(S): Z85.42 - Personal history of malignant neoplasm of other parts of uterus (9) Hyperlipidemia: CODE(S): E78.5 - Hyperlipidemia, unspecified (10) GERD (gastroesophageal reflux disease): CODE(S): K21.9 - Gastro-esophageal reflux disease without esophagitis (11) Obesity (BMI 30.0-34.9): CODE(S): E66.9 - Obesity, unspecified PLAN: Plan This is a 66-year-old female with a complex past medical history, much of which has been detailed above. She presented with a recurrence of her right groin ulceration, secondary to soft tissue radiation injury. The patient has been treated at our facility numerous times in the past. Her current ulceration recurred approximately 2-3 weeks prior to her presentation. We are to implement the use of collagenase Santyl topically. Patient has been provided a prescrip tion. She has been instructed to apply topically on a daily basis. Nutritional optimization has been recommended. The patient is to follow-up in 1 week for reevaluation. Total time: 35 minutes.
[2022-02-22 09:04] VITALS: BP 150/86; PULSE 92; RESP 16; TEMP 36.4; BMI 29.8
--- NOTE | 2022-02-22 09:57 | PCM.WC.HP ---
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 The patient was diagnosed with melanoma of the right calf in the 1969's. 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 The patient underwent excision of her melanoma with lymphadenectomy in the right groin. She also underwent lengthy radiation treatments at the [facility] in [place], [place]. Melanoma recurred, and the patient was subsequently treated with monoclonal antibodies in 1984. 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 Treatment included local ulcer care and hyperbaric oxygen therapy. She underwent a total of nearly 90 treatments of hyperbaric oxygen therapy. It is known that she tolerated the therapies well, and derived significant benefit. 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 She has also undergone several more sessions of hyperbaric oxygen therapy. She also received a series of 10 EpiFix allografts in the course of previous treatment. Each of the patient's prior courses of treatment in our facility have been protracted, with difficulties encountered in achieving complete healing. Her most recent course of treatment ended with successful healing and discharge in February 2021. The patient presented at this time with a recurrence of her right groin ulceration, again thought to be secondary to soft tissue radiation injury. The ulceration recurred spontaneously approximately 2-3 weeks prior to her presentation. The patient indicates that her health history has not changed since she was last treated in our facility. [facility] Medical History Bilateral cataracts Cancer Hemorrhoids Knee pain Radiation injury Home Medications famotidine 20 mg tablet 20 mg PO 06/20/17 [History Last Taken Unknown] pravastatin 20 mg tablet 20 mg PO DAILY 06/20/17 [History Last Taken Unknown] famotidine 40 mg tablet PO 90 days ##90 12/26/17 [History Last Taken Unknown] pravastatin 20 mg tablet PO 90 days ##90 12/26/17 [History Last Taken Unknown] Allergy/AdvReac Type Severity Reaction Status Date / Time No Known Allergies Allergy Verified 02/15/22 09:08 Family History Other Heart disease Hypertension Surgical History Hx of AKA (above knee amputation) Social History Smoking Status: Former smoker alcohol intake: current alcohol intake frequency: holidays/special occasions only Vital Signs Vital Signs Vital Signs: 02/22/22 09:04 Temperature 97.6 F L Temperature Source Temporal Pulse Rate 92 Respiratory Rate 16 Blood Pressure 150/86 H Blood Pressure Mean 107 Blood Pressure Source Monitor Blood Pressure Position Sitting Blood Pressure Location Right Arm Oxygen Delivery Method Room Air Weight Weight: 196 lb 1.696 oz Body Mass Index (BMI) 29.8 Physical Exam Const alert, oriented x3, no apparent distress and well nourished General Appearance: cooperative, comfortable, well kempt and well developed Orientation / Consciousness: awake, oriented to person, oriented to place and oriented to time Exam Limitations: no limitations HEENT normocephalic and head/scalp atraumatic Head and Scalp: normal to inspection, normocephalic and atraumatic External Ear: external ears normal Eyes PERRL and EOMs intact bilaterally General Eye: normal appearance of both eyes Resp normal respiratory effort, normal air movement, no retractions and no use of accessory muscles Effort and Inspection: able to speak in complete sentences Extremity no calf tenderness Extremity Narrative: A well-healed right above-knee amputation stump is noted. General Extremity: Negative for clubbing or cyanosis Skin Wound Narrative: A small ulceration is noted in the patient's right groin, the site of previous ulceration when last treated at our facility. There is no sign of infection or cellulitis. The base of the ulceration demonstrates some fibrotic and nonviable material. There is a moderate amount of bioburden. Dimensions are documented elsewhere. Neuro oriented x3, CN's II-XII intact bilaterally and moves all extremities Sensorium / Orientation: awake, alert, oriented to person, oriented to place and oriented to time Psych Appearance: grossly normal and appropriate Attitude: calm Activity / Motor Behavior: appropriate eye contact Speech: normal speech Mood & Affect: euthymic mood Thought Process: normal thought process Thought Content: normal thought content Attention / Concentration: attention grossly intact Debridement Note Debridement Note Wound debrided: Right groin Laterality: Right Type of Debridement: Excisional debridement Anesthesia Used: 5% Lidocaine Gel Depth: Down to and including healthy tissue and in the subcutaneous layer Percentage of wound debrided: 100 Instrument Used: 3mm curette Tissue Removed: Bioburden and fibrotic, nonviable tissue Severity: Fat Layer Exposed Amount of bleeding with debridement: Mild Bleeding Controlled with: Compression and gauze Patient tolerated procedure: Patient tolerated procedure well Post-Debridement Measurements and Additional Note: Post-Debridement Measurements/Treatment - Nurse 1 - General Ulcer Assessment Start: 02/15/22 08:53 Freq: Status: Active Protocol: MICHAEL Activity Type Activity Date Activity User E-sign Co-sign Detail Recorded Client Recorded Date Recorded By Document 02/15/22 08:53 DL [id number] 02/15/22 09:06 DL Document 02/22/22 09:04 MW [id number] 02/22/22 09:12 MW 02/15/22 02/22/22 08:53 09:04 - Today's Visit Information Type of service Initial Visit Follow-up 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/[facility] [employer] ) Arrival Mode Ambulatory Ambulatory Transfer Assistance None None Accompanied by self Patient Identification Verified (Name & Yes Yes ) Patient Requires Transmission-Based No No Precautions Safety Precautions NA Height and Weight Height 5 ft 8 in Weight 196 lb 1.696 oz Weight in Pounds 196.1 lbs Body Mass Index (BMI) 29.8 29.8 BMI Classification Overweight Overweight BSA - Lori 2.03 Vital Signs Temperature (97.8 F-99.1 F) 97.7 F L 97.6 F L Temperature Source Temporal Temporal Pulse Rate (60-100) 94 92 Pulse Location Monitor Monitor Respiratory Rate (12-18) 20 H 16 Respiratory rate source Observation Observation Oxygen Delivery Method Room Air Blood Pressure (90/60-120/80) 159/88 H 150/86 H Blood Pressure Mean 111 107 Source Monitor Monitor Position Sitting Blood Pressure Location Right Arm History Since Last Visit- (Skip if this is Patient's initial visit) Have you changed medications since your No last visit? Any new allergies or adverse reactions No Had a fall/change in ADL's that may No increase risk of falls Signs or symptoms of abuse and/or No neglect since last visit Have you been in the hospital since your No last visit? Has dressing in place as prescribed Yes Has compression in place as prescribed N/A Has offloadiing in place as prescribed N/A Experienced any changes in pain level or No management Left Footwear Regular Shoe Right Footwear Other Footwear (Comment) Other Footwear Right Prethesis Pain Scale: 0-10 Numeric Is Patient Pain Free? Yes Yes Communication Assessment Preferred language Kiswahili Able to Read Yes Able to Write Yes Communication Tools None Right Hearing Abillity Normal Visual Assistive Devices Glasses Teaching Assessment Preferences Verbal,Written, Demonstration Barriers to Learning None Readiness To Learn Excellent Willingness to Engage in Self Management High Activies Readiness to Engage in Self Management High Activities Anxiety Level Calm Cooperation Cooperative Perception Coherent Interest in Health Problem Asks Questions Education Importance Acknowledges Need Does Patient Smoke tobacco or other No substances Smoking Status Former smoker Is Patient Diabetic No Functional Assessment Recent Decline in Ability to Perform Denies Any Declines Culture/Confucianist/[employer] Cultural/Confucianist Needs that may affect No Treatment Plan Would you allow our hospital immunology teacher to No meet you for the purpose of spiritual/ emotional support? [employer] to contact place of denominational No Teaching: Wound Center *Wound/Skin Impairment -Person Taught Patient Skin Care -Person Taught Patient Plan of Care Reviewed with Patient -Person Taught Patient *Nutrition -Person Taught Patient *Infection -Person Taught Patient *Welcome to the Wound Center -Person Taught Patient WC - Nurse 1 - General Ulcer Measurement Start: 02/15/22 08:53 Freq: Status: Active Protocol: Activity Type Activity Date Activity User E-sign Co-sign Detail Recorded Client Recorded Date Recorded By Document 02/15/22 08:53 DL [id number] 02/15/22 09:06 DL Document 02/22/22 09:04 MW [id number] 02/22/22 09:12 MW 02/15/22 02/22/22 08:53 09:04 Wound Center Nurse 1 # 10 Right Groin -Current Size (cm) - Length 0.8 -Current Size (cm) - Width 0.4 -Current Size (cm) - Depth 0.2 -Total Square Cm 0.32 -Photo Taken Yes -Classification - Thickness Full Thickness without Exposed Support Structure -Exudate Amt Small -Exudate Type Serosanguineous -Wound Margin Distinct, Outline Attached -Granulation Amt None Present (0 %) -Necrosis Amt Small (1-33%) -Necrotic Tissue Type Adherent Slough -Structure Exposed N/A -Texture (Blanche-wound Skin Appearance) Scarring -Moisture (Blanche-wound Skin Appearance) Dry/Scaly -Color (Blanche-wound Skin Appearance) No Abnormality -Temperature (Blanche-wound Skin No Abnormality Appearance) (Pt Warm) -Tenderness on Palpation (Blanche-wound No Skin Appearance) -Ulcer Cleansing Rinsed/ Irrigated with Saline -Foul Odor after Cleansing No -Anesthetic Used 4% Lidocaine Solution #11 R Groin -Combined with other wound No -Current Size (cm) - Length 0.8 0.8 -Current Size (cm) - Width 0.4 0.3 -Current Size (cm) - Depth 0.2 0.2 -Total Square Cm 0.32 0.24 -Photo Taken Yes No -Epithelialization None Present -Tunneling No -Undermining/Tunneling No -Circular Undermining No -Exudate Amt None Present Small -Exudate Type Serosanguineous -Wound Margin Distinct, Distinct, Outline Outline Attached Attached -Granulation Amt None Present (0 None Present (0 %) %) -Granulation Quality N/A -Slough/Fibrin Yes -Necrosis Amt Large (67-100%) Large (67-100%) -Necrotic Tissue Type Adherent Slough Adherent Slough -Structure Exposed N/A N/A -Texture (Blanche-wound Skin Appearance) Scarring Assessed, Scarring -Moisture (Blanche-wound Skin Appearance) Dry/Scaly No Abnormality, Assessed -Color (Blanche-wound Skin Appearance) No Abnormality No Abnormality, Assessed -Temperature (Blanche-wound Skin No Abnormality No Abnormality Appearance) (Pt Warm) (Pt Warm) -Tenderness on Palpation (Blanche-wound No No Skin Appearance) -Ulcer Cleansing Rinsed/ Rinsed/ Irrigated with Irrigated with Saline Saline -Foul Odor after Cleansing No No -Anesthetic Used 4% Lidocaine 4% Lidocaine Solution Solution Lower Limb Edema Present No WC - Nurse 2 - General Ulcer CM Notes Start: 02/15/22 08:53 Freq: Status: Active Protocol: Activity Type Activity Date Activity User E-sign Co-sign Detail Recorded Client Recorded Date Recorded By Document 02/15/22 10:02 PL [id number] 02/15/22 10:04 PL 02/15/22 10:02 Wound Center Nurse 2 #11 R Groin -Time 09:18 -Correct Patient Yes -Correct Side, Site, Position Yes -Correct Procedure Yes -Procedure Performed Yes -Type of Procedure Debridement -Clinical Debridement Subcutaneous -Tissue Removed Subcutaneous -Post Debridement (cm) - Length 0.8 -Post Debridement (cm) - Width 0.4 -Post Debridement (cm) - Depth 0.2 -Total Square (Post) (cm) 0.32 -Area of Debridement (cm) - Length 0.8 -Area of Debridement (cm) - Width 0.4 -Total Square (Area) (cm) 0.32 -Tunneling No -Undermining/Tunneling No -Circular Undermining No -Wound/Ulcer Outcome Not Healed -Ulcer Cleansing Rinsed/ Irrigated with Saline -Foul Odor after Cleansing No -Bioengineered Tissue No -Bleeding Controlled with Pressure -Treatment Response Procedure Tolerated Well -Debridement - Subq, 1st 20sq cm Yes Pain Scale: 0-10 Numeric Is Patient Pain Free? Yes - Nurse 3 - General Ulcer D/C NN Start: 02/15/22 08:53 Freq: Status: Active Protocol: Activity Type Activity Date Activity User E-sign Co-sign Detail Recorded Client Recorded Date Recorded By Document 02/15/22 09:33 DL [id number] 02/15/22 09:33 DL Document 02/22/22 09:43 DL [id number] 02/22/22 09:44 DL 02/15/22 02/22/22 09:33 09:43 Wound Care Nurse 3 #11 R Groin -Ulcer Cleansing Rinsed/ Rinsed/ Irrigated with Irrigated with Saline Saline -Foul Odor after Cleansing No No -Primary Dressing Applied C Hydrogel ($) -Other Dressing santyl -Primary Dressing Covered/Secured with Dry Gauze, Dry Gauze, Secured with Secured with Tape Tape Treatment Response Procedure Procedure Tolerated Well Tolerated Well Pain Scale: 0-10 Numeric Is Patient Pain Free? Yes Yes WC - Visit Discharge Discharge Condition Stable Stable Ambulatory Status Ambulatory Ambulatory Transportation Private Auto Private Auto Assessment/Plan Assessment/Plan (1) Soft tissue radionecrosis: CODE(S): L59.8 - Other specified disorders of the skin and subcutaneous tissue related to radiation; Y84.2 - Radiological procedure and radiotherapy as the cause of abnormal reaction of the patient, or of later complication, without mention of misadventure at the time of the procedure (2) Radiation injury: CODE(S): T66.XXXA - Radiation sickness, unspecified, initial encounter QUALIFIERS: Encounter type: initial encounter Qualified Code(s): T66.XXXA - Radiation sickness, unspecified, initial encounter (3) soft tissue radiation injury: (4) History of melanoma: CODE(S): Z85.820 - Personal history of malignant melanoma of skin (5) Ulcer of right groin: CODE(S): L98.499 - Non-pressure chronic ulcer of skin of other sites with unspecified severity QUALIFIERS: Non-pressure ulcer stage: with fat layer exposed Qualified Code(s): L98.492 - Non-pressure chronic ulcer of skin of other sites with fat layer exposed (6) Amputee, above knee: CODE(S): Z89.619 - Acquired absence of unspecified leg above knee (7) Overweight (BMI 25.0-29.9): CODE(S): E66.3 - Overweight (8) History of uterine cancer: CODE(S): Z85.42 - Personal history of malignant neoplasm of other parts of uterus (9) Hyperlipidemia: CODE(S): E78.5 - Hyperlipidemia, unspecified (10) GERD (gastroesophageal reflux disease): CODE(S): K21.9 - Gastro-esophageal reflux disease without esophagitis (11) Obesity (BMI 30.0-34.9): CODE(S): E66.9 - Obesity, unspecified PLAN: Plan This is a 67-year-old female with a complex past medical history, much of which has been detailed above. She presented with a recurrence of her right groin ulceration, secondary to soft tissue radiation injury. The patient has been treated at our facility numerous times in the past. Her current ulceration recurred approximately 2-3 weeks prior to her presentation. We are to continue the use of collagenase Santyl topically. She has been instructed to apply topically on a daily basis. Nutritional optimization has been recommended. Given the nature of the patient's wound, soft tissue radiation injury secondary to prior courses of radiation, the patient would appear to be a candidate for hyperbaric oxygen therapy. This matter has been discussed with patient in detail. She is fully familiar with HBO treatments, having undergone hyperbaric oxygen therapy only several years ago in 2018. Review of the patient's medical history indicates that the patient tolerated hyperbaric oxygen therapy well, without complications. She derive significant benefit from prior HBO treatments. Her health and medical history has not changed in any significant manner since that time, so there appear to be no contraindications to hyperbaric oxygen therapy at this time. Efforts will be made to preauthorize hyperbaric oxygen treatments, which will be initiated upon pre-approval. The patient is to follow-up in 1 week for reevaluation. Total time: 29 minutes.
[2022-03-08 09:10] VITALS: BP 148/94; PULSE 97; RESP 20; TEMP 37; BMI 29.8
--- NOTE | 2022-03-08 12:12 | PCM.WC.HP ---
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 The patient was diagnosed with melanoma of the right calf in the 1969's. 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 The patient underwent excision of her melanoma with lymphadenectomy in the right groin. She also underwent lengthy radiation treatments at the [facility] in [place], [place]. Melanoma recurred, and the patient was subsequently treated with monoclonal antibodies in 1984. 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 Treatment included local ulcer care and hyperbaric oxygen therapy. She underwent a total of nearly 90 treatments of hyperbaric oxygen therapy. It is known that she tolerated the therapies well, and derived significant benefit. 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 She has also undergone several more sessions of hyperbaric oxygen therapy. She also received a series of 10 EpiFix allografts in the course of previous treatment. Each of the patient's prior courses of treatment in our facility have been protracted, with difficulties encountered in achieving complete healing. Her most recent course of treatment ended with successful healing and discharge in February 2021. The patient presented at this time with a recurrence of her right groin ulceration, again thought to be secondary to soft tissue radiation injury. The ulceration recurred spontaneously approximately 2-3 weeks prior to her presentation. The patient indicates that her health history has not changed since she was last treated in our facility. [facility] Medical History Bilateral cataracts Cancer Hemorrhoids Knee pain Radiation injury Home Medications famotidine 20 mg tablet 20 mg PO 06/20/17 [History Last Taken Unknown] pravastatin 20 mg tablet 20 mg PO DAILY 06/20/17 [History Last Taken Unknown] famotidine 40 mg tablet PO 90 days ##90 12/26/17 [History Last Taken Unknown] pravastatin 20 mg tablet PO 90 days ##90 12/26/17 [History Last Taken Unknown] Allergy/AdvReac Type Severity Reaction Status Date / Time No Known Allergies Allergy Verified 02/15/22 09:08 Family History Other Heart disease Hypertension Surgical History Hx of AKA (above knee amputation) Social History Smoking Status: Former smoker alcohol intake: current alcohol intake frequency: holidays/special occasions only Vital Signs Vital Signs Vital Signs: 03/08/22 09:10 Temperature 98.6 F Temperature Source Temporal Pulse Rate 97 Respiratory Rate 20 H Blood Pressure 148/94 H Blood Pressure Mean 112 Blood Pressure Source Monitor Weight Weight: 196 lb 1.696 oz Body Mass Index (BMI) 29.8 Physical Exam Const alert, oriented x3, no apparent distress and well nourished General Appearance: cooperative, comfortable, well kempt and well developed Orientation / Consciousness: awake, oriented to person, oriented to place and oriented to time Exam Limitations: no limitations HEENT normocephalic and head/scalp atraumatic Head and Scalp: normal to inspection, normocephalic and atraumatic External Ear: external ears normal Eyes PERRL and EOMs intact bilaterally General Eye: normal appearance of both eyes Resp normal respiratory effort, normal air movement, no retractions and no use of accessory muscles Effort and Inspection: able to speak in complete sentences Extremity no calf tenderness Extremity Narrative: A well-healed right above-knee amputation stump is noted. General Extremity: Negative for clubbing or cyanosis Skin Wound Narrative: A small ulceration is noted in the patient's right groin, the site of previous ulceration when last treated at our facility. There is no sign of infection or cellulitis. The base of the ulceration demonstrates some fibrotic and nonviable material. There is a moderate amount of bioburden. Dimensions are documented elsewhere. Neuro oriented x3, CN's II-XII intact bilaterally and moves all extremities Sensorium / Orientation: awake, alert, oriented to person, oriented to place and oriented to time Psych Appearance: grossly normal and appropriate Attitude: calm Activity / Motor Behavior: appropriate eye contact Speech: normal speech Mood & Affect: euthymic mood Thought Process: normal thought process Thought Content: normal thought content Attention / Concentration: attention grossly intact Debridement Note Debridement Note Wound debrided: Right groin Laterality: Right Type of Debridement: Excisional debridement Anesthesia Used: 5% Lidocaine Gel Depth: Down to and including healthy tissue and in the subcutaneous layer Percentage of wound debrided: 100 Instrument Used: 3mm curette Tissue Removed: Bioburden and fibrotic, nonviable tissue Severity: Fat Layer Exposed Amount of bleeding with debridement: Mild Bleeding Controlled with: Compression and gauze Patient tolerated procedure: Patient tolerated procedure well Post-Debridement Measurements and Additional Note: Post-Debridement Measurements/Treatment - Nurse 1 - General Ulcer Assessment Start: 02/15/22 08:53 Freq: Status: Active Protocol: MICHAEL Activity Type Activity Date Activity User E-sign Co-sign Detail Recorded Client Recorded Date Recorded By Document 02/15/22 08:53 DL [id number] 02/15/22 09:06 DL Document 02/22/22 09:04 MW [id number] 02/22/22 09:12 MW Document 03/08/22 09:10 DL [id number] 03/08/22 09:14 DL 02/15/22 02/22/22 03/08/22 08:53 09:04 09:10 - Today's Visit Information Type of service Initial Visit Follow-up Visit Follow-up 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/LABORER CHEMICAL PROCESSING (Physician/LABORER CHEMICAL PROCESSING ) ) Arrival Mode Ambulatory Ambulatory Ambulatory Transfer Assistance None None None Accompanied by self Patient Identification Verified (Name & Yes Yes Yes ) Patient Requires Transmission-Based No No No Precautions Safety Precautions NA Height and Weight Height 5 ft 8 in Weight 196 lb 1.696 oz Weight in Pounds 196.1 lbs Body Mass Index (BMI) 29.8 29.8 29.8 BMI Classification Overweight Overweight Overweight BSA - Lori 2.03 Vital Signs Temperature (97.8 F-99.1 F) 97.7 F L 97.6 F L 98.6 F Temperature Source Temporal Temporal Temporal Pulse Rate (60-100) 94 92 97 Pulse Location Monitor Monitor Monitor Respiratory Rate (12-18) 20 H 16 20 H Respiratory rate source Observation Observation Observation Oxygen Delivery Method Room Air Blood Pressure (90/60-120/80) 159/88 H 150/86 H 148/94 H Blood Pressure Mean 111 107 112 Source Monitor Monitor Monitor Position Sitting Blood Pressure Location Right Arm History Since Last Visit- (Skip if this is Patient's initial visit) Have you changed medications since your No No last visit? Any new allergies or adverse reactions No No Had a fall/change in ADL's that may No No increase risk of falls Signs or symptoms of abuse and/or No No neglect since last visit Have you been in the hospital since your No No last visit? Has dressing in place as prescribed Yes Yes Has compression in place as prescribed N/A N/A Has offloadiing in place as prescribed N/A N/A Experienced any changes in pain level or No No management Left Footwear Regular Shoe Right Footwear Other Footwear (Comment) Other Footwear Right Prethesis Pain Scale: 0-10 Numeric Is Patient Pain Free? Yes Yes Yes Communication Assessment Preferred language [place] Able to Read Yes Able to Write Yes Communication Tools None Right Hearing Abillity Normal Visual Assistive Devices Glasses Teaching Assessment Preferences Verbal,Written, Demonstration Barriers to Learning None Readiness To Learn Excellent Willingness to Engage in Self Management High Activies Readiness to Engage in Self Management High Activities Anxiety Level Calm Cooperation Cooperative Perception Coherent Interest in Health Problem Asks Questions Education Importance Acknowledges Need Does Patient Smoke tobacco or other No substances Smoking Status Former smoker Is Patient Diabetic No Functional Assessment Recent Decline in Ability to Perform Denies Any Declines Culture/Baptism/Junior Buyer Cultural/Baptism Needs that may affect No Treatment Plan Would you allow our hospital tabulating machine mechanic to No meet you for the purpose of spiritual/ emotional support? Junior Buyer to contact place of hinduism No Teaching: Wound Center *Wound/Skin Impairment -Person Taught Patient Skin Care -Person Taught Patient Plan of Care Reviewed with Patient -Person Taught Patient *Nutrition -Person Taught Patient *Infection -Person Taught Patient *Welcome to the Wound Center -Person Taught Patient WC - Nurse 1 - General Ulcer Measurement Start: 02/15/22 08:53 Freq: Status: Active Protocol: Activity Type Activity Date Activity User E-sign Co-sign Detail Recorded Client Recorded Date Recorded By Document 02/15/22 08:53 DL [id number] 02/15/22 09:06 DL Document 02/22/22 09:04 MW [id number] 02/22/22 09:12 MW Document 03/08/22 09:10 DL [id number] 03/08/22 09:14 DL 02/15/22 02/22/22 03/08/22 08:53 09:04 09:10 Wound Center Nurse 1 # 10 Right Groin -Current Size (cm) - Length 0.8 -Current Size (cm) - Width 0.4 -Current Size (cm) - Depth 0.2 -Total Square Cm 0.32 -Photo Taken Yes -Classification - Thickness Full Thickness without Exposed Support Structure -Exudate Amt Small -Exudate Type Serosanguineous -Wound Margin Distinct, Outline Attached -Granulation Amt None Present (0 %) -Necrosis Amt Small (1-33%) -Necrotic Tissue Type Adherent Slough -Structure Exposed N/A -Texture (Blanche-wound Skin Appearance) Scarring -Moisture (Blanche-wound Skin Appearance) Dry/Scaly -Color (Blanche-wound Skin Appearance) No Abnormality -Temperature (Blanche-wound Skin No Abnormality Appearance) (Pt Warm) -Tenderness on Palpation (Blanche-wound No Skin Appearance) -Ulcer Cleansing Rinsed/ Irrigated with Saline -Foul Odor after Cleansing No -Anesthetic Used 4% Lidocaine Solution #11 R Groin -Combined with other wound No -Current Size (cm) - Length 0.8 0.8 1 -Current Size (cm) - Width 0.4 0.3 0.4 -Current Size (cm) - Depth 0.2 0.2 0.1 -Total Square Cm 0.32 0.24 0.4 -Photo Taken Yes No No -Epithelialization None Present -Tunneling No -Undermining/Tunneling No -Circular Undermining No -Exudate Amt None Present Small Small -Exudate Type Serosanguineous Serosanguineous -Wound Margin Distinct, Distinct, Distinct, Outline Outline Outline Attached Attached Attached -Granulation Amt None Present (0 None Present (0 None Present (0 %) %) %) -Granulation Quality N/A -Slough/Fibrin Yes -Necrosis Amt Large (67-100%) Large (67-100%) Small (1-33%) -Necrotic Tissue Type Adherent Slough Adherent Slough Adherent Slough -Structure Exposed N/A N/A N/A -Texture (Blanche-wound Skin Appearance) Scarring Assessed, Scarring Scarring -Moisture (Blanche-wound Skin Appearance) Dry/Scaly No Abnormality, Dry/Scaly Assessed -Color (Blanche-wound Skin Appearance) No Abnormality No Abnormality, No Abnormality Assessed -Temperature (Blanche-wound Skin No Abnormality No Abnormality No Abnormality Appearance) (Pt Warm) (Pt Warm) (Pt Warm) -Tenderness on Palpation (Blanche-wound No No No Skin Appearance) -Ulcer Cleansing Rinsed/ Rinsed/ Rinsed/ Irrigated with Irrigated with Irrigated with Saline Saline Saline -Foul Odor after Cleansing No No No -Anesthetic Used 4% Lidocaine 4% Lidocaine 4% Lidocaine Solution Solution Solution Lower Limb Edema Present No WC - Nurse 2 - General Ulcer CM Notes Start: 02/15/22 08:53 Freq: Status: Active Protocol: Activity Type Activity Date Activity User E-sign Co-sign Detail Recorded Client Recorded Date Recorded By Document 02/15/22 10:02 PL [id number] 02/15/22 10:04 PL Document 02/22/22 10:08 PL [id number] 02/22/22 10:09 PL Document 03/08/22 12:01 PL [id number] 03/08/22 12:02 PL 02/15/22 02/22/22 03/08/22 10:02 10:08 12:01 Wound Center Nurse 2 #11 R Groin -Time 09:18 09:26 09:51 -Correct Patient Yes Yes Yes -Correct Side, Site, Position Yes Yes Yes -Correct Procedure Yes Yes Yes -Procedure Performed Yes Yes Yes -Type of Procedure Debridement Debridement Debridement -Clinical Debridement Subcutaneous Subcutaneous Subcutaneous -Tissue Removed Subcutaneous Subcutaneous Subcutaneous -Post Debridement (cm) - Length 0.8 0.8 1.0 -Post Debridement (cm) - Width 0.4 0.3 0.4 -Post Debridement (cm) - Depth 0.2 0.2 0.1 -Total Square (Post) (cm) 0.32 0.24 0.40 -Area of Debridement (cm) - Length 0.8 0.8 1.0 -Area of Debridement (cm) - Width 0.4 0.3 0.4 -Total Square (Area) (cm) 0.32 0.24 0.40 -Tunneling No No No -Undermining/Tunneling No No No -Circular Undermining No No No -Wound/Ulcer Outcome Not Healed Not Healed Not Healed -Ulcer Cleansing Rinsed/ Rinsed/ Rinsed/ Irrigated with Irrigated with Irrigated with Saline Saline Saline -Foul Odor after Cleansing No No No -Bioengineered Tissue No No No -Bleeding Controlled with Pressure Pressure Pressure -Treatment Response Procedure Procedure Procedure Tolerated Well Tolerated Well Tolerated Well -Debridement - Subq, 1st 20sq cm Yes Yes Yes Pain Scale: 0-10 Numeric Is Patient Pain Free? Yes Yes Yes - Nurse 3 - General Ulcer D/C NN Start: 02/15/22 08:53 Freq: Status: Active Protocol: Activity Type Activity Date Activity User E-sign Co-sign Detail Recorded Client Recorded Date Recorded By Document 02/15/22 09:33 DL [id number] 02/15/22 09:33 DL Document 02/22/22 09:43 DL [id number] 02/22/22 09:44 DL Document 03/08/22 09:59 BM [id number] 03/08/22 10:01 BMF 02/15/22 02/22/22 03/08/22 09:33 09:43 09:59 Wound Care Nurse 3 #11 R Groin -Ulcer Cleansing Rinsed/ Rinsed/ Rinsed/ Irrigated with Irrigated with Irrigated with Saline Saline Saline -Foul Odor after Cleansing No No No -Primary Dressing Applied C Hydrogel ($) -Other Dressing santyl PT APPLIES SANTYL, 2X2 AND HER OWN PERSONAL TAPE -Primary Dressing Covered/Secured with Dry Gauze, Dry Gauze, Dry Gauze, Secured with Secured with Secured with Tape Tape Tape Treatment Response Procedure Procedure Procedure Tolerated Well Tolerated Well Tolerated Well Pain Scale: 0-10 Numeric Is Patient Pain Free? Yes Yes Yes - Visit Discharge Discharge Condition Stable Stable Stable Ambulatory Status Ambulatory Ambulatory Ambulatory Transportation Private Auto Private Auto Private Auto Assessment/Plan Assessment/Plan (1) Soft tissue radionecrosis: CODE(S): L59.8 - Other specified disorders of the skin and subcutaneous tissue related to radiation; Y84.2 - Radiological procedure and radiotherapy as the cause of abnormal reaction of the patient, or of later complication, without mention of misadventure at the time of the procedure (2) Radiation injury: CODE(S): T66.XXXA - Radiation sickness, unspecified, initial encounter QUALIFIERS: Encounter type: initial encounter Qualified Code(s): T66.XXXA - Radiation sickness, unspecified, initial encounter (3) soft tissue radiation injury: (4) History of melanoma: CODE(S): Z85.820 - Personal history of malignant melanoma of skin (5) Ulcer of right groin: CODE(S): L98.499 - Non-pressure chronic ulcer of skin of other sites with unspecified severity QUALIFIERS: Non-pressure ulcer stage: with fat layer exposed Qualified Code(s): L98.492 - Non-pressure chronic ulcer of skin of other sites with fat layer exposed (6) Amputee, above knee: CODE(S): Z89.619 - Acquired absence of unspecified leg above knee (7) Overweight (BMI 25.0-29.9): CODE(S): E66.3 - Overweight (8) History of uterine cancer: CODE(S): Z85.42 - Personal history of malignant neoplasm of other parts of uterus (9) Hyperlipidemia: CODE(S): E78.5 - Hyperlipidemia, unspecified (10) GERD (gastroesophageal reflux disease): CODE(S): K21.9 - Gastro-esophageal reflux disease without esophagitis (11) Obesity (BMI 30.0-34.9): CODE(S): E66.9 - Obesity, unspecified PLAN: Plan This is a 67-year-old female with a complex past medical history, much of which has been detailed above. She presented with a recurrence of her right groin ulceration, secondary to soft tissue radiation injury. The patient has been treated at our facility numerous times in the past. Her current ulceration recurred approximately 2-3 weeks prior to her presentation. We are to continue the use of collagenase Santyl topically. She has been instructed to apply topically on a daily basis. Nutritional optimization has been recommended. Given the nature of the patient's wound, soft tissue radiation injury secondary to prior courses of radiation, the patient would appear to be a candidate for hyperbaric oxygen therapy. This matter has been discussed with patient in detail. She is fully familiar with HBO treatments, having undergone hyperbaric oxygen therapy only several years ago in 2018. Review of the patient's medical history indicates that the patient tolerated hyperbaric oxygen therapy well, without complications. She derive significant benefit from prior HBO treatments. Her health and medical history has not changed in any significant manner since that time, so there appear to be no contraindications to hyperbaric oxygen therapy at this time. Efforts will be made to preauthorize hyperbaric oxygen treatments, which will be initiated upon pre-approval. The patient is to follow-up in 1 week for reevaluation. Total time: 28 minutes.
== END 2022-03-09 23:59 | disposition home or self-care (01) ==
LOC: WC 09:00
PROVIDERS: PCP Family Medicine; Visit Provider Surgery
DX: L59.8 Other specified disorders of the skin and subcutaneous tissue related to radiation (principal); Z89.619 Acquired absence of unspecified leg above knee; L98.492 Non-pressure chronic ulcer of skin of other sites with fat layer exposed; L97.112 Non-pressure chronic ulcer of right thigh with fat layer exposed; K21.9 Gastro-esophageal reflux disease without esophagitis; Z87.891 Personal history of nicotine dependence; E78.5 Hyperlipidemia, unspecified; Z85.820 Personal history of malignant melanoma of skin; T66.XXXA Radiation sickness, unspecified, initial encounter; Y84.2 Radiological procedure and radiotherapy as the cause of abnormal reaction of the patient, or of later complication, without mention of misadventure at the time of the procedure; Z79.899 Other long term (current) drug therapy
CPT/HCPCS: 11042; 99213; G0463

== ENCOUNTER 2022-04-05 09:00 | Outpatient (RCR) | payer MEDICARE, OTHER, SELFPAY ==
[2022-03-10 00:10] VITALS: BP 148/94; PULSE 97; RESP 20; TEMP 37; BMI 29.8
[2022-03-15 09:07] VITALS: BP 166/95; PULSE 85; RESP 16; TEMP 36.3; BMI 29.8
--- NOTE | 2022-03-15 10:57 | PCM.WC.HP ---
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 The patient was diagnosed with melanoma of the right calf in the 1969's. 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 The patient underwent excision of her melanoma with lymphadenectomy in the right groin. She also underwent lengthy radiation treatments at the [facility] in [place], [place]. Melanoma recurred, and the patient was subsequently treated with monoclonal antibodies in 1984. 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 Treatment included local ulcer care and hyperbaric oxygen therapy. She underwent a total of nearly 90 treatments of hyperbaric oxygen therapy. It is known that she tolerated the therapies well, and derived significant benefit. 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 She has also undergone several more sessions of hyperbaric oxygen therapy. She also received a series of 10 EpiFix allografts in the course of previous treatment. Each of the patient's prior courses of treatment in our facility have been protracted, with difficulties encountered in achieving complete healing. Her most recent course of treatment ended with successful healing and discharge in February 2021. The patient presented at this time with a recurrence of her right groin ulceration, again thought to be secondary to soft tissue radiation injury. The ulceration recurred spontaneously approximately 2-3 weeks prior to her presentation. The patient indicates that her health history has not changed since she was last treated in our facility. [facility] Medical History Bilateral cataracts Cancer Hemorrhoids Knee pain Radiation injury Home Medications famotidine 20 mg tablet 20 mg PO 06/20/17 [History Last Taken Unknown] pravastatin 20 mg tablet 20 mg PO DAILY 06/20/17 [History Last Taken Unknown] famotidine 40 mg tablet PO 90 days ##90 12/26/17 [History Last Taken Unknown] pravastatin 20 mg tablet PO 90 days ##90 12/26/17 [History Last Taken Unknown] Allergy/AdvReac Type Severity Reaction Status Date / Time No Known Allergies Allergy Verified 02/15/22 09:08 Family History Other Heart disease Hypertension Surgical History Hx of AKA (above knee amputation) Social History Smoking Status: Former smoker alcohol intake: current alcohol intake frequency: holidays/special occasions only Vital Signs Vital Signs Vital Signs: 03/15/22 09:07 Temperature 97.4 F L Temperature Source Temporal Pulse Rate 85 Respiratory Rate 16 Blood Pressure 166/95 H Blood Pressure Mean 118 Blood Pressure Source Monitor Blood Pressure Position Sitting Weight Weight: 196 lb 1.696 oz Body Mass Index (BMI) 29.8 Physical Exam Const alert, oriented x3, no apparent distress and well nourished General Appearance: cooperative, comfortable, well kempt and well developed Orientation / Consciousness: awake, oriented to person, oriented to place and oriented to time Exam Limitations: no limitations HEENT normocephalic and head/scalp atraumatic Head and Scalp: normal to inspection, normocephalic and atraumatic External Ear: external ears normal Eyes PERRL and EOMs intact bilaterally General Eye: normal appearance of both eyes Resp normal respiratory effort, normal air movement, no retractions and no use of accessory muscles Effort and Inspection: able to speak in complete sentences Extremity no calf tenderness Extremity Narrative: A well-healed right above-knee amputation stump is noted. General Extremity: Negative for clubbing or cyanosis Skin Wound Narrative: A small ulceration is noted in the patient's right groin, the site of previous ulceration when last treated at our facility. There is no sign of infection or cellulitis. The base of the ulceration demonstrates some fibrotic and nonviable material. There is a moderate amount of bioburden. Dimensions are documented elsewhere. There has been little change in recent weeks. A well-healed right above-knee amputation stump is noted. Neuro oriented x3, CN's II-XII intact bilaterally, moves all extremities and no focal motor deficits Sensorium / Orientation: awake, alert, oriented to person, oriented to place and oriented to time Psych Appearance: grossly normal and appropriate Attitude: calm Activity / Motor Behavior: appropriate eye contact Speech: normal speech Mood & Affect: euthymic mood Thought Process: normal thought process Thought Content: normal thought content Attention / Concentration: attention grossly intact Debridement Note Debridement Note Wound debrided: Right groin Laterality: Right Type of Debridement: Excisional debridement Anesthesia Used: 5% Lidocaine Gel Depth: Down to and including healthy tissue and in the subcutaneous layer Percentage of wound debrided: 100 Instrument Used: 3mm curette Tissue Removed: Bioburden and fibrotic, nonviable tissue Severity: Fat Layer Exposed Amount of bleeding with debridement: Mild Bleeding Controlled with: Compression and gauze Patient tolerated procedure: Patient tolerated procedure well Post-Debridement Measurements and Additional Note: Post-Debridement Measurements/Treatment - Nurse 1 - General Ulcer Assessment Start: 03/15/22 09:07 Freq: Status: Active Protocol: KISHA.LUCINDAT Activity Type Activity Date Activity User E-sign Co-sign Detail Recorded Client Recorded Date Recorded By Document 03/15/22 09:07 ML [id number] 03/15/22 09:12 ML 03/15/22 09:07 - Today's Visit Information Type of service 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 ) Arrival Mode Ambulatory Transfer Assistance None Patient Identification Verified (Name & Yes ) Patient Requires Transmission-Based No Precautions Safety Precautions NA Height and Weight Body Mass Index (BMI) 29.8 BMI Classification Overweight Vital Signs Temperature (97.8 F-99.1 F) 97.4 F L Temperature Source Temporal Pulse Rate (60-100) 85 Pulse Location Monitor Respiratory Rate (12-18) 16 Respiratory rate source Observation Blood Pressure (90/60-120/80) 166/95 H Blood Pressure Mean 118 Source Monitor Position Sitting History Since Last Visit- (Skip if this is Patient's initial visit) Have you changed medications since your No last visit? Any new allergies or adverse reactions No Had a fall/change in ADL's that may No increase risk of falls Signs or symptoms of abuse and/or No neglect since last visit Have you been in the hospital since your No last visit? Has dressing in place as prescribed No Has compression in place as prescribed N/A Has offloadiing in place as prescribed N/A Experienced any changes in pain level or No management Left Footwear Regular Shoe Right Footwear Regular Shoe Pain Scale: 0-10 Numeric Is Patient Pain Free? Yes - Nurse 1 - General Ulcer Measurement Start: 03/15/22 09:07 Freq: Status: Active Protocol: Activity Type Activity Date Activity User E-sign Co-sign Detail Recorded Client Recorded Date Recorded By Document 03/15/22 09:07 ML [id number] 03/15/22 09:12 ML 03/15/22 09:07 Wound Center Nurse 1 #11 R Groin -Current Size (cm) - Length 1.4 -Current Size (cm) - Width 0.2 -Current Size (cm) - Depth 0.2 -Total Square Cm 0.28 -Wound Margin Distinct, Outline Attached -Granulation Amt Medium (34-66%) -Slough/Fibrin Yes -Necrosis Amt Medium (34-66%) -Necrotic Tissue Type Adherent Slough -Texture (Blanche-wound Skin Appearance) Assessed -Moisture (Blanche-wound Skin Appearance) Assessed -Color (Blanche-wound Skin Appearance) Assessed -Temperature (Blanche-wound Skin No Abnormality Appearance) (Pt Warm) -Tenderness on Palpation (Blanche-wound No Skin Appearance) -Ulcer Cleansing Rinsed/ Irrigated with Saline -Anesthetic Used 4% Lidocaine Solution - Nurse 2 - General Ulcer CM Notes Start: 03/15/22 09:07 Freq: Status: Active Protocol: Activity Type Activity Date Activity User E-sign Co-sign Detail Recorded Client Recorded Date Recorded By Document 03/15/22 09:44 PL [id number] 03/15/22 09:44 PL 03/15/22 09:44 Wound Center Nurse 2 -Time 09:25 -Correct Patient Yes -Correct Side, Site, Position Yes -Correct Procedure Yes -Procedure Performed Yes -Type of Procedure Debridement -Clinical Debridement Subcutaneous -Tissue Removed Subcutaneous -Post Debridement (cm) - Length 1.4 -Post Debridement (cm) - Width 0.2 -Post Debridement (cm) - Depth 0.2 -Total Square (Post) (cm) 0.28 -Area of Debridement (cm) - Length 1.4 -Area of Debridement (cm) - Width 0.2 -Total Square (Area) (cm) 0.28 -Tunneling No -Undermining/Tunneling No -Circular Undermining No -Wound/Ulcer Outcome Not Healed -Ulcer Cleansing Rinsed/ Irrigated with Saline -Foul Odor after Cleansing No -Bioengineered Tissue No -Bleeding Controlled with Pressure -Treatment Response Procedure Tolerated Well -Debridement - Subq, 1st 20sq cm Yes Pain Scale: 0-10 Numeric Is Patient Pain Free? Yes WC - Nurse 3 - General Ulcer D/C NN Start: 03/15/22 09:07 Freq: Status: Active Protocol: Activity Type Activity Date Activity User E-sign Co-sign Detail Recorded Client Recorded Date Recorded By Document 03/15/22 09:34 ML [id number] 03/15/22 09:35 ML 03/15/22 09:34 Wound Care Nurse 3 #11 R Groin -Ulcer Cleansing Rinsed/ Irrigated with Saline -Other Dressing santyl -Primary Dressing Covered/Secured with Dry Gauze, Secured with Tape Pain Scale: 0-10 Numeric Is Patient Pain Free? Yes Assessment/Plan Assessment/Plan (1) Soft tissue radionecrosis: CODE(S): L59.8 - Other specified disorders of the skin and subcutaneous tissue related to radiation; Y84.2 - Radiological procedure and radiotherapy as the cause of abnormal reaction of the patient, or of later complication, without mention of misadventure at the time of the procedure (2) Radiation injury: CODE(S): T66.XXXA - Radiation sickness, unspecified, initial encounter QUALIFIERS: Encounter type: initial encounter Qualified Code(s): T66.XXXA - Radiation sickness, unspecified, initial encounter (3) soft tissue radiation injury: (4) History of melanoma: CODE(S): Z85.820 - Personal history of malignant melanoma of skin (5) Ulcer of right groin: CODE(S): L98.499 - Non-pressure chronic ulcer of skin of other sites with unspecified severity QUALIFIERS: Non-pressure ulcer stage: with fat layer exposed Qualified Code(s): L98.492 - Non-pressure chronic ulcer of skin of other sites with fat layer exposed (6) Amputee, above knee: CODE(S): Z89.619 - Acquired absence of unspecified leg above knee (7) Overweight (BMI 25.0-29.9): CODE(S): E66.3 - Overweight (8) History of uterine cancer: CODE(S): Z85.42 - Personal history of malignant neoplasm of other parts of uterus (9) Hyperlipidemia: CODE(S): E78.5 - Hyperlipidemia, unspecified (10) GERD (gastroesophageal reflux disease): CODE(S): K21.9 - Gastro-esophageal reflux disease without esophagitis (11) Obesity (BMI 30.0-34.9): CODE(S): E66.9 - Obesity, unspecified PLAN: Plan This is a 67-year-old female with a complex past medical history, much of which has been detailed above. She presented with a recurrence of her right groin ulceration, secondary to soft tissue radiation injury. The patient has been treated at our facility numerous times in the past. Her current ulceration recurred approximately 2-3 weeks prior to her presentation. We are to continue the use of collagenase Santyl topically. She has been instructed to apply topically on a daily basis. Nutritional optimization has been recommended. Given the nature of the patient's wound, soft tissue radiation injury secondary to prior courses of radiation, the patient would appear to be a candidate for hyperbaric oxygen therapy. This matter has been discussed with patient in detail. She is fully familiar with HBO treatments, having undergone hyperbaric oxygen therapy only several years ago in 2018. Review of the patient's medical history indicates that the patient tolerated hyperbaric oxygen therapy well, without complications. She derive significant benefit from prior HBO treatments. Her health and medical history has not changed in any significant manner since that time, so there appear to be no contraindications to hyperbaric oxygen therapy at this time. Efforts will be made to preauthorize hyperbaric oxygen treatments, which will be initiated upon pre-approval. The patient is to follow-up in 1 week for reevaluation. Total time: 29 minutes.
[2022-03-22 09:16] VITALS: BP 124/61; PULSE 78; TEMP 35.6; BMI 29.8
--- NOTE | 2022-03-22 10:00 | HP.PCM_ITS ---
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 The patient was diagnosed with melanoma of the right calf in the 1969's. 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 The patient underwent excision of her melanoma with lymphadenectomy in the right groin. She also underwent lengthy radiation treatments at the [facility] in [place], [place]. Melanoma recurred, and the patient was subsequently treated with monoclonal antibodies in 1984. 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 Treatment included local ulcer care and hyperbaric oxygen therapy. She underwent a total of nearly 90 treatments of hyperbaric oxygen therapy. It is known that she tolerated the therapies well, and derived significant benefit. 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 She has also undergone several more sessions of hyperbaric oxygen therapy. She also received a series of 10 EpiFix allografts in the course of previous treatment. Each of the patient's prior courses of treatment in our facility have been protracted, with difficulties encountered in achieving complete healing. Her most recent course of treatment ended with successful healing and discharge in February 2021. The patient presented at this time with a recurrence of her right groin ulceration, again thought to be secondary to soft tissue radiation injury. The ulceration recurred spontaneously approximately 2-3 weeks prior to her presentation. The patient indicates that her health history has not changed since she was last treated in our facility. [facility] Medical History Bilateral cataracts Cancer Hemorrhoids Knee pain Radiation injury Home Medications famotidine 20 mg tablet 20 mg PO 06/20/17 [History Last Taken Unknown] pravastatin 20 mg tablet 20 mg PO DAILY 06/20/17 [History Last Taken Unknown] famotidine 40 mg tablet PO 90 days ##90 12/26/17 [History Last Taken Unknown] pravastatin 20 mg tablet PO 90 days ##90 12/26/17 [History Last Taken Unknown] Allergy/AdvReac Type Severity Reaction Status Date / Time No Known Allergies Allergy Verified 02/15/22 09:08 Family History Other Heart disease Hypertension Surgical History Hx of AKA (above knee amputation) Social History Smoking Status: Former smoker alcohol intake: current alcohol intake frequency: holidays/special occasions only Vital Signs Vital Signs Vital Signs: 03/22/22 09:16 Temperature 96.0 F L Temperature Source Temporal Pulse Rate 78 Blood Pressure 124/61 H Blood Pressure Mean 82 Blood Pressure Source Monitor Blood Pressure Position Sitting Blood Pressure Location Left Arm Weight Weight: 196 lb 1.696 oz Body Mass Index (BMI) 29.8 Physical Exam Const alert, oriented x3, no apparent distress and well nourished General Appearance: cooperative, comfortable, well kempt and well developed Orientation / Consciousness: awake, oriented to person, oriented to place and oriented to time Exam Limitations: no limitations HEENT normocephalic and head/scalp atraumatic Head and Scalp: normal to inspection, normocephalic and atraumatic External Ear: external ears normal Eyes PERRL and EOMs intact bilaterally General Eye: normal appearance of both eyes Resp normal respiratory effort, normal air movement, no retractions and no use of accessory muscles Effort and Inspection: able to speak in complete sentences Extremity no calf tenderness Extremity Narrative: A well-healed right above-knee amputation stump is noted. General Extremity: Negative for clubbing or cyanosis Skin Wound Narrative: A small ulceration is noted in the patient's right groin, the site of previous ulceration when last treated at our facility. The base of the ulceration demonstrates some fibrotic and nonviable material. There is a moderate amount of bioburden. Dimensions are documented elsewhere. There has been little change in recent weeks. A well-healed right above-knee amputation stump is noted. Neuro oriented x3, CN's II-XII intact bilaterally, moves all extremities and no focal motor deficits Sensorium / Orientation: awake, alert, oriented to person, oriented to place and oriented to time Psych Appearance: grossly normal and appropriate Attitude: calm Activity / Motor Behavior: appropriate eye contact Speech: normal speech Mood & Affect: euthymic mood Thought Process: normal thought process Thought Content: normal thought content Attention / Concentration: attention grossly intact Debridement Note Debridement Note Wound debrided: Right groin Laterality: Right Type of Debridement: Excisional debridement Anesthesia Used: 5% Lidocaine Gel Depth: Down to and including healthy tissue and in the subcutaneous layer Percentage of wound debrided: 100 Instrument Used: 3mm curette Tissue Removed: Bioburden and nonviable tissue Severity: Fat Layer Exposed Amount of bleeding with debridement: Mild Bleeding Controlled with: Compression and gauze Patient tolerated procedure: Patient tolerated procedure well Post-Debridement Measurements and Additional Note: Post-Debridement Measurements/Treatment - Nurse 1 - General Ulcer Assessment Start: 03/15/22 09:07 Freq: Status: Active Protocol: MICHAEL Activity Type Activity Date Activity User E-sign Co-sign Detail Recorded Client Recorded Date Recorded By Document 03/15/22 09:07 ML [id number] 03/15/22 09:12 ML Document 03/22/22 09:16 KR [id number] 03/22/22 09:19 KR 03/15/22 03/22/22 09:07 09:16 - Today's Visit Information Type of service Follow-up Visit Follow-up 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/REAL ESTATE OPERATIONS MANAGER (Physician/REAL ESTATE OPERATIONS MANAGER ) ) Arrival Mode Ambulatory Ambulatory Transfer Assistance None Patient Identification Verified (Name & Yes Yes ) Patient Requires Transmission-Based No Precautions Safety Precautions NA Height and Weight Body Mass Index (BMI) 29.8 29.8 BMI Classification Overweight Overweight Vital Signs Temperature (97.8 F-99.1 F) 97.4 F L 96.0 F L Temperature Source Temporal Temporal Pulse Rate (60-100) 85 78 Pulse Location Monitor Monitor Respiratory Rate (12-18) 16 Respiratory rate source Observation Blood Pressure (90/60-120/80) 166/95 H 124/61 H Blood Pressure Mean 118 82 Source Monitor Monitor Position Sitting Sitting Blood Pressure Location Left Arm History Since Last Visit- (Skip if this is Patient's initial visit) Have you changed medications since your No No last visit? Any new allergies or adverse reactions No No Had a fall/change in ADL's that may No No increase risk of falls Signs or symptoms of abuse and/or No No neglect since last visit Have you been in the hospital since your No No last visit? Has dressing in place as prescribed No Yes Has compression in place as prescribed N/A N/A Has offloadiing in place as prescribed N/A N/A Experienced any changes in pain level or No No management Left Footwear Regular Shoe Regular Shoe Right Footwear Regular Shoe Regular Shoe Pain Scale: 0-10 Numeric Is Patient Pain Free? Yes Yes WC - Nurse 1 - General Ulcer Measurement Start: 03/15/22 09:07 Freq: Status: Active Protocol: Activity Type Activity Date Activity User E-sign Co-sign Detail Recorded Client Recorded Date Recorded By Document 03/15/22 09:07 ML [id number] 03/15/22 09:12 ML Document 03/22/22 09:16 KR [id number] 03/22/22 09:19 KR 03/15/22 03/22/22 09:07 09:16 Wound Center Nurse 1 #11 R Groin -Current Size (cm) - Length 1.4 1.3 -Current Size (cm) - Width 0.2 2 -Current Size (cm) - Depth 0.2 0.2 -Total Square Cm 0.28 2.6 -Exudate Amt Small -Exudate Type Serosanguineous -Wound Margin Distinct, Distinct, Outline Outline Attached Attached -Granulation Amt Medium (34-66%) None Present (0 %) -Slough/Fibrin Yes -Necrosis Amt Medium (34-66%) Small (1-33%) -Necrotic Tissue Type Adherent Slough Adherent Slough -Texture (Blanche-wound Skin Appearance) Assessed Assessed, Scarring -Moisture (Blanche-wound Skin Appearance) Assessed No Abnormality, Assessed -Color (Blanche-wound Skin Appearance) Assessed No Abnormality, Assessed -Temperature (Blanche-wound Skin No Abnormality No Abnormality Appearance) (Pt Warm) (Pt Warm) -Tenderness on Palpation (Blanche-wound No No Skin Appearance) -Ulcer Cleansing Rinsed/ Rinsed/ Irrigated with Irrigated with Saline Saline -Foul Odor after Cleansing No -Anesthetic Used 4% Lidocaine 5% Lidocaine Solution Gel KISHA - Nurse 2 - General Ulcer CM Notes Start: 03/15/22 09:07 Freq: Status: Active Protocol: Activity Type Activity Date Activity User E-sign Co-sign Detail Recorded Client Recorded Date Recorded By Document 03/15/22 09:44 PL [id number] 03/15/22 09:44 PL 03/15/22 09:44 Wound Center Nurse 2 -Time 09:25 -Correct Patient Yes -Correct Side, Site, Position Yes -Correct Procedure Yes -Procedure Performed Yes -Type of Procedure Debridement -Clinical Debridement Subcutaneous -Tissue Removed Subcutaneous -Post Debridement (cm) - Length 1.4 -Post Debridement (cm) - Width 0.2 -Post Debridement (cm) - Depth 0.2 -Total Square (Post) (cm) 0.28 -Area of Debridement (cm) - Length 1.4 -Area of Debridement (cm) - Width 0.2 -Total Square (Area) (cm) 0.28 -Tunneling No -Undermining/Tunneling No -Circular Undermining No -Wound/Ulcer Outcome Not Healed -Ulcer Cleansing Rinsed/ Irrigated with Saline -Foul Odor after Cleansing No -Bioengineered Tissue No -Bleeding Controlled with Pressure -Treatment Response Procedure Tolerated Well -Debridement - Subq, 1st 20sq cm Yes Pain Scale: 0-10 Numeric Is Patient Pain Free? Yes - Nurse 3 - General Ulcer D/C NN Start: 03/15/22 09:07 Freq: Status: Active Protocol: Activity Type Activity Date Activity User E-sign Co-sign Detail Recorded Client Recorded Date Recorded By Document 03/15/22 09:34 ML [id number] 03/15/22 09:35 ML Document 03/22/22 09:43 KR [id number] 03/22/22 09:43 KR 03/15/22 03/22/22 09:34 09:43 Wound Care Nurse 3 #11 R Groin -Ulcer Cleansing Rinsed/ Rinsed/ Irrigated with Irrigated with Saline Saline -Other Dressing santyl -Primary Dressing Covered/Secured with Dry Gauze, Dry Gauze, Secured with Secured with Tape Tape Pain Scale: 0-10 Numeric Is Patient Pain Free? Yes Yes WC - Visit Discharge Discharge Condition Stable Ambulatory Status Ambulatory Transportation Private Auto Assessment/Plan Assessment/Plan (1) Soft tissue radionecrosis: CODE(S): L59.8 - Other specified disorders of the skin and subcutaneous tissue related to radiation; Y84.2 - Radiological procedure and radiotherapy as the cause of abnormal reaction of the patient, or of later complication, without mention of misadventure at the time of the procedure (2) Radiation injury: CODE(S): T66.XXXA - Radiation sickness, unspecified, initial encounter QUALIFIERS: Encounter type: initial encounter Qualified Code(s): T66.XXXA - Radiation sickness, unspecified, initial encounter (3) soft tissue radiation injury: (4) History of melanoma: CODE(S): Z85.820 - Personal history of malignant melanoma of skin (5) Ulcer of right groin: CODE(S): L98.499 - Non-pressure chronic ulcer of skin of other sites with unspecified severity QUALIFIERS: Non-pressure ulcer stage: with fat layer exposed Qualified Code(s): L98.492 - Non-pressure chronic ulcer of skin of other sites with fat layer exposed (6) Amputee, above knee: CODE(S): Z89.619 - Acquired absence of unspecified leg above knee (7) Overweight (BMI 25.0-29.9): CODE(S): E66.3 - Overweight (8) History of uterine cancer: CODE(S): Z85.42 - Personal history of malignant neoplasm of other parts of uterus (9) Hyperlipidemia: CODE(S): E78.5 - Hyperlipidemia, unspecified (10) GERD (gastroesophageal reflux disease): CODE(S): K21.9 - Gastro-esophageal reflux disease without esophagitis (11) Obesity (BMI 30.0-34.9): CODE(S): E66.9 - Obesity, unspecified PLAN: Plan This is a 67-year-old female with a complex past medical history, much of which has been detailed above. She presented with a recurrence of her right groin ulceration, secondary to soft tissue radiation injury. The patient has been treated at our facility numerous times in the past. Her current ulceration recurred approximately 2-3 weeks prior to her presentation. We are to continue the use of collagenase Santyl topically. She has been instructed to apply topically on a daily basis. Nutritional optimization has been recommended. Given the nature of the patient's wound, soft tissue radiation injury secondary to prior courses of radiation, the patient would appear to be a candidate for hyperbaric oxygen therapy. This matter has been discussed with patient in detail. She is fully familiar with HBO treatments, having undergone hyperbaric oxygen therapy only several years ago in 2018. Review of the patient's medical history indicates that the patient tolerated hyperbaric oxygen therapy well, without complications. She derived significant benefit from prior HBO treatments. Her health and medical history has not changed in any significant manner since that time, so there appear to be no contraindications to hyperbaric oxygen therapy at this time. Efforts will be made to preauthorize hyperbaric oxygen treatments, which will be initiated upon pre-approval. We will continue to await pre-approval from the patient's insurance company. The patient is to follow-up in 1 week for reevaluation. Swab cultures have been obtained of the patient's wound today, for both aerobic and anaerobic bacterial growth. Culture results will be awaited. Total time: 28 minutes.
[2022-03-29 09:23] VITALS: BP 167/84; PULSE 88; TEMP 36.1; BMI 29.8
--- NOTE | 2022-03-29 13:35 | HP.PCM_ITS ---
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 The patient was diagnosed with melanoma of the right calf in the 1969's. 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 The patient underwent excision of her melanoma with lymphadenectomy in the right groin. She also underwent lengthy radiation treatments at the [facility] in [place], [place]. Melanoma recurred, and the patient was subsequently treated with monoclonal antibodies in 1984. 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 Treatment included local ulcer care and hyperbaric oxygen therapy. She underwent a total of nearly 90 treatments of hyperbaric oxygen therapy. It is known that she tolerated the therapies well, and derived significant benefit. 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 She has also undergone several more sessions of hyperbaric oxygen therapy. She also received a series of 10 EpiFix allografts in the course of previous treatment. Each of the patient's prior courses of treatment in our facility have been protracted, with difficulties encountered in achieving complete healing. Her most recent course of treatment ended with successful healing and discharge in February 2021. The patient presented at this time with a recurrence of her right groin ulceration, again thought to be secondary to soft tissue radiation injury. The ulceration recurred spontaneously approximately 2-3 weeks prior to her presentation. The patient indicates that her health history has not changed since she was last treated in our facility. FORMERLY [facility], [facility] Medical History Bilateral cataracts Cancer Hemorrhoids Knee pain Radiation injury Home Medications famotidine 20 mg tablet 20 mg PO 06/20/17 [History Last Taken Unknown] pravastatin 20 mg tablet 20 mg PO DAILY 06/20/17 [History Last Taken Unknown] famotidine 40 mg tablet PO 90 days ##90 12/26/17 [History Last Taken Unknown] pravastatin 20 mg tablet PO 90 days ##90 12/26/17 [History Last Taken Unknown] Allergy/AdvReac Type Severity Reaction Status Date / Time No Known Allergies Allergy Verified 02/15/22 09:08 Family History Other Heart disease Hypertension Surgical History Hx of AKA (above knee amputation) Social History Smoking Status: Former smoker alcohol intake: current alcohol intake frequency: holidays/special occasions only Vital Signs Vital Signs Vital Signs: 03/29/22 09:23 Temperature 97.0 F L Temperature Source Temporal Pulse Rate 88 Blood Pressure 167/84 H Blood Pressure Mean 111 Blood Pressure Source Monitor Blood Pressure Position Semi-Fowlers Blood Pressure Location Right Arm Weight Weight: 196 lb 1.696 oz Body Mass Index (BMI) 29.8 Physical Exam Const alert, oriented x3, no apparent distress and well nourished General Appearance: cooperative, comfortable, well kempt and well developed Orientation / Consciousness: awake, oriented to person, oriented to place and oriented to time Exam Limitations: no limitations HEENT normocephalic and head/scalp atraumatic Head and Scalp: normal to inspection, normocephalic and atraumatic External Ear: external ears normal Eyes PERRL and EOMs intact bilaterally General Eye: normal appearance of both eyes Resp normal respiratory effort, normal air movement, no retractions and no use of accessory muscles Effort and Inspection: able to speak in complete sentences Extremity no calf tenderness Extremity Narrative: A well-healed right above-knee amputation stump is noted. General Extremity: Negative for clubbing or cyanosis Skin Wound Narrative: A small ulceration is noted in the patient's right groin, the site of previous ulceration when last treated at our facility. The base of the ulceration demonstrates some fibrotic and nonviable material. There is a moderate amount of bioburden. Dimensions are documented elsewhere. There has been little change in recent weeks. A well-healed right above-knee amputation stump is n oted. Neuro oriented x3, CN's II-XII intact bilaterally, moves all extremities and no focal motor deficits Sensorium / Orientation: awake, alert, oriented to person, oriented to place and oriented to time Psych Appearance: grossly normal and appropriate Attitude: calm Activity / Motor Behavior: appropriate eye contact Speech: normal speech Mood & Affect: euthymic mood Thought Process: normal thought process Thought Content: normal thought content Attention / Concentration: attention grossly intact Debridement Note Debridement Note Wound debrided: Right groin Laterality: Right Type of Debridement: Excisional debridement Anesthesia Used: 5% Lidocaine Gel Depth: Down to and including healthy tissue and in the subcutaneous layer Percentage of wound debrided: 100 Instrument Used: 3mm curette Severity: Fat Layer Exposed Amount of bleeding with debridement: Mild Bleeding Controlled with: Compression and gauze Patient tolerated procedure: Patient tolerated procedure well Post-Debridement Measurements and Additional Note: Post-Debridement Measurements/Treatment - Nurse 1 - General Ulcer Assessment Start: 03/15/22 09:07 Freq: Status: Active Protocol: MICHAEL Activity Type Activity Date Activity User E-sign Co-sign Detail Recorded Client Recorded Date Recorded By Document 03/15/22 09:07 ML [id number] 03/15/22 09:12 ML Document 03/22/22 09:16 KR [id number] 03/22/22 09:19 KR Document 03/29/22 09:23 KR [id number] 03/29/22 09:26 KR 03/15/22 03/22/22 03/29/22 09:07 09:16 09:23 - Today's Visit Information Type of service Follow-up Visit Follow-up Visit Follow-up 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/SHIFT NURSE MANAGER (Physician/SHIFT NURSE MANAGER (Physician/SHIFT NURSE MANAGER ) ) ) Arrival Mode Ambulatory Ambulatory Ambulatory Transfer Assistance None Patient Identification Verified (Name & Yes Yes Yes ) Patient Requires Transmission-Based No Precautions Safety Precautions NA Height and Weight Body Mass Index (BMI) 29.8 29.8 29.8 BMI Classification Overweight Overweight Overweight Vital Signs Temperature (97.8 F-99.1 F) 97.4 F L 96.0 F L 97.0 F L Temperature Source Temporal Temporal Temporal Pulse Rate (60-100) 85 78 88 Pulse Location Monitor Monitor Monitor Respiratory Rate (12-18) 16 Respiratory rate source Observation Blood Pressure (90/60-120/80) 166/95 H 124/61 H 167/84 H Blood Pressure Mean 118 82 111 Source Monitor Monitor Monitor Position Sitting Sitting Semi-Fowlers Blood Pressure Location Left Arm Right Arm History Since Last Visit- (Skip if this is Patient's initial visit) Have you changed medications since your No No No last visit? Any new allergies or adverse reactions No No No Had a fall/change in ADL's that may No No No increase risk of falls Signs or symptoms of abuse and/or No No No neglect since last visit Have you been in the hospital since your No No No last visit? Has dressing in place as prescribed No Yes Yes Has compression in place as prescribed N/A N/A N/A Has offloadiing in place as prescribed N/A N/A N/A Experienced any changes in pain level or No No No management Left Footwear Regular Shoe Regular Shoe Regular Shoe Right Footwear Regular Shoe Regular Shoe Regular Shoe Pain Scale: 0-10 Numeric Is Patient Pain Free? Yes Yes Yes WC - Nurse 1 - General Ulcer Measurement Start: 03/15/22 09:07 Freq: Status: Active Protocol: Activity Type Activity Date Activity User E-sign Co-sign Detail Recorded Client Recorded Date Recorded By Document 03/15/22 09:07 ML [id number] 03/15/22 09:12 ML Document 03/22/22 09:16 KR [id number] 03/22/22 09:19 KR Document 03/29/22 09:23 KR [id number] 03/29/22 09:26 KR 03/15/22 03/22/22 03/29/22 09:07 09:16 09:23 Wound Center Nurse 1 #11 R Groin -Current Size (cm) - Length 1.4 1.3 1 -Current Size (cm) - Width 0.2 2 0.2 -Current Size (cm) - Depth 0.2 0.2 0.2 -Total Square Cm 0.28 2.6 0.2 -Exudate Amt Small Small -Exudate Type Serosanguineous Serosanguineous -Wound Margin Distinct, Distinct, Distinct, Outline Outline Outline Attached Attached Attached -Granulation Amt Medium (34-66%) None Present (0 None Present (0 %) %) -Slough/Fibrin Yes -Necrosis Amt Medium (34-66%) Small (1-33%) Large (67-100%) -Necrotic Tissue Type Adherent Slough Adherent Slough Adherent Slough -Texture (Blanche-wound Skin Appearance) Assessed Assessed, Assessed, Scarring Scarring -Moisture (Blanche-wound Skin Appearance) Assessed No Abnormality, No Abnormality, Assessed Assessed -Color (Blanche-wound Skin Appearance) Assessed No Abnormality, No Abnormality, Assessed Assessed -Temperature (Blanche-wound Skin No Abnormality No Abnormality No Abnormality Appearance) (Pt Warm) (Pt Warm) (Pt Warm) -Tenderness on Palpation (Blanche-wound No No No Skin Appearance) -Ulcer Cleansing Rinsed/ Rinsed/ Rinsed/ Irrigated with Irrigated with Irrigated with Saline Saline Saline -Foul Odor after Cleansing No No -Anesthetic Used 4% Lidocaine 5% Lidocaine 4% Lidocaine Solution Gel Solution WC - Nurse 2 - General Ulcer CM Notes Start: 03/15/22 09:07 Freq: Status: Active Protocol: Activity Type Activity Date Activity User E-sign Co-sign Detail Recorded Client Recorded Date Recorded By Document 03/15/22 09:44 PL [id number] 03/15/22 09:44 PL Document 03/22/22 10:08 PL [id number] 03/22/22 10:08 PL Document 03/29/22 09:40 MW [id number] 03/29/22 09:43 MW 03/15/22 03/22/22 03/29/22 09:44 10:08 09:40 Wound Center Nurse 2 #11 R Groin -Time 09:25 09:36 09:40 -Correct Patient Yes Yes Yes -Correct Side, Site, Position Yes Yes Yes -Correct Procedure Yes Yes Yes -Procedure Performed Yes Yes Yes -Type of Procedure Debridement Debridement Debridement -Clinical Debridement Subcutaneous Subcutaneous Subcutaneous -Tissue Removed Subcutaneous Subcutaneous Subcutaneous -Post Debridement (cm) - Length 1.4 1.3 1.4 -Post Debridement (cm) - Width 0.2 0.2 0.3 -Post Debridement (cm) - Depth 0.2 0.2 0.2 -Total Square (Post) (cm) 0.28 0.26 0.42 -Area of Debridement (cm) - Length 1.4 1.3 1.4 -Area of Debridement (cm) - Width 0.2 0.2 0.3 -Total Square (Area) (cm) 0.28 0.26 0.42 -Tunneling No No No -Undermining/Tunneling No No No -Circular Undermining No No No -Wound/Ulcer Outcome Not Healed Not Healed Not Healed -Ulcer Cleansing Rinsed/ Rinsed/ Rinsed/ Irrigated with Irrigated with Irrigated with Saline Saline Saline -Foul Odor after Cleansing No No No -Bioengineered Tissue No No No -Bleeding Controlled with Pressure Pressure Pressure -Treatment Response Procedure Procedure Procedure Tolerated Well Tolerated Well Tolerated Well -Offloading No -Debridement - Subq, 1st 20sq cm Yes Yes Yes Pain Scale: 0-10 Numeric Is Patient Pain Free? Yes Yes Yes - Nurse 3 - General Ulcer D/C NN Start: 03/15/22 09:07 Freq: Status: Active Protocol: Activity Type Activity Date Activity User E-sign Co-sign Detail Recorded Client Recorded Date Recorded By Document 03/15/22 09:34 ML [id number] 03/15/22 09:35 ML Document 03/22/22 09:43 KR [id number] 03/22/22 09:43 KR 03/15/22 03/22/22 09:34 09:43 Wound Care Nurse 3 #11 R Groin -Ulcer Cleansing Rinsed/ Rinsed/ Irrigated with Irrigated with Saline Saline -Other Dressing santyl -Primary Dressing Covered/Secured with Dry Gauze, Dry Gauze, Secured with Secured with Tape Tape Pain Scale: 0-10 Numeric Is Patient Pain Free? Yes Yes - Visit Discharge Discharge Condition Stable Ambulatory Status Ambulatory Transportation Private Auto Assessment/Plan Assessment/Plan (1) Soft tissue radionecrosis: CODE(S): L59.8 - Other specified disorders of the skin and subcutaneous tissue related to radiation; Y84.2 - Radiological procedure and radiotherapy as the cause of abnormal reaction of the patient, or of later complication, without mention of misadventure at the time of the procedure (2) Radiation injury: CODE(S): T66.XXXA - Radiation sickness, unspecified, initial encounter QUALIFIERS: Encounter type: initial encounter Qualified Code(s): T66.XXXA - Radiation sickness, unspecified, initial encounter (3) soft tissue radiation injury: (4) History of melanoma: CODE(S): Z85.820 - Personal history of malignant melanoma of skin (5) Ulcer of right groin: CODE(S): L98.499 - Non-pressure chronic ulcer of skin of other sites with unspecified severity QUALIFIERS: Non-pressure ulcer stage: with fat layer exposed Qualified Code(s): L98.492 - Non-pressure chronic ulcer of skin of other sites with fat layer exposed (6) Amputee, above knee: CODE(S): Z89.619 - Acquired absence of unspecified leg above knee (7) Overweight (BMI 25.0-29.9): CODE(S): E66.3 - Overweight (8) History of uterine cancer: CODE(S): Z85.42 - Personal history of malignant neoplasm of other parts of uterus (9) Hyperlipidemia: CODE(S): E78.5 - Hyperlipidemia, unspecified (10) GERD (gastroesophageal reflux disease): CODE(S): K21.9 - Gastro-esophageal reflux disease without esophagitis (11) Obesity (BMI 30.0-34.9): CODE(S): E66.9 - Obesity, unspecified PLAN: Plan This is a 67-year-old female with a complex past medical history, much of which has been detailed above. She presented with a recurrence of her right groin ulceration, secondary to soft tissue radiation injury. The patient has been treated at our facility numerous times in the past. Her current ulceration recurred approximately 2-3 weeks prior to her presentation. We are to continue the use of collagenase Santyl topically. She has been instructed to apply topically on a daily basis. Nutritional optimization has been recommended. Given the nature of the patient's wound, soft tissue radiation injury secondary to prior courses of radiation, the patient would appear to be a candidate for hyperbaric oxygen therapy. This matter has been discussed with patient in detail. She is fully familiar with HBO treatments, having undergone hyperbaric oxygen therapy only several years ago in 2018. Review of the patient's medical history indicates that the patient tolerated hyperbaric oxygen therapy well, without complications. She derived significant benefit from prior HBO treatments. Her health and medical history has not changed in any significant manner since that time, so there appear to be no contraindications to hyperbaric oxygen therapy at this time. Efforts will be made to preauthorize hyperbaric oxygen treatments, which will be initiated upon pre-approval. We will continue to await pre-approval from the patient's insurance company. The patient is to follow-up in 1 week for reevaluation. Swab cultures were obtained 1 week ago for both aerobic and anaerobic bacterial growth. The culture results were positive for Staph aureus, Corynebacterium stratum, and Eggerthia catenaformis. Based upon sensitivity results, the patient has been started on Augmentin 875 mg p.o. twice daily for total of 10 days, and is currently in the midst of her course of antibiotics. The patient is to follow-up in 1 week for reevaluation. Total time: 29 minutes
[2022-04-05 09:02] VITALS: BP 161/97; PULSE 92; RESP 20; TEMP 36.3; BMI 29.8
--- NOTE | 2022-04-05 15:10 | PCM.WC.HP ---
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 The patient was diagnosed with melanoma of the right calf in the 1969's. 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 The patient underwent excision of her melanoma with lymphadenectomy in the right groin. She also underwent lengthy radiation treatments at the [facility] in [place], [place]. Melanoma recurred, and the patient was subsequently treated with monoclonal antibodies in 1984. 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 Treatment included local ulcer care and hyperbaric oxygen therapy. She underwent a total of nearly 90 treatments of hyperbaric oxygen therapy. It is known that she tolerated the therapies well, and derived significant benefit. 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 She has also undergone several more sessions of hyperbaric oxygen therapy. She also received a series of 10 EpiFix allografts in the course of previous treatment. Each of the patient's prior courses of treatment in our facility have been protracted, with difficulties encountered in achieving complete healing. Her most recent course of treatment ended with successful healing and discharge in February 2021. The patient presented at this time with a recurrence of her right groin ulceration, again thought to be secondary to soft tissue radiation injury. The ulceration recurred spontaneously approximately 2-3 weeks prior to her presentation. The patient indicates that her health history has not changed since she was last treated in our facility. [facility] Medical History Bilateral cataracts Cancer Hemorrhoids Knee pain Radiation injury Home Medications famotidine 20 mg tablet 20 mg PO 06/20/17 [History Last Taken Unknown] pravastatin 20 mg tablet 20 mg PO DAILY 06/20/17 [History Last Taken Unknown] famotidine 40 mg tablet PO 90 days ##90 12/26/17 [History Last Taken Unknown] pravastatin 20 mg tablet PO 90 days ##90 12/26/17 [History Last Taken Unknown] Allergy/AdvReac Type Severity Reaction Status Date / Time No Known Allergies Allergy Verified 02/15/22 09:08 Family History Other Heart disease Hypertension Surgical History Hx of AKA (above knee amputation) Social History Smoking Status: Former smoker alcohol intake: current alcohol intake frequency: holidays/special occasions only Vital Signs Vital Signs Vital Signs: 04/05/22 09:02 Temperature 97.4 F L Temperature Source Temporal Pulse Rate 92 Respiratory Rate 20 H Blood Pressure 161/97 H Blood Pressure Mean 118 Blood Pressure Source Monitor Weight Weight: 196 lb 1.696 oz Body Mass Index (BMI) 29.8 Physical Exam Const alert, oriented x3, no apparent distress and well nourished General Appearance: cooperative, comfortable, well kempt and well developed Orientation / Consciousness: awake, oriented to person, oriented to place and oriented to time Exam Limitations: no limitations HEENT normocephalic and head/scalp atraumatic Head and Scalp: normal to inspection, normocephalic and atraumatic External Ear: external ears normal Eyes PERRL and EOMs intact bilaterally General Eye: normal appearance of both eyes Resp normal respiratory effort, normal air movement, no retractions and no use of accessory muscles Effort and Inspection: able to speak in complete sentences Extremity no calf tenderness Extremity Narrative: A well-healed right above-knee amputation stump is noted. General Extremity: Negative for clubbing or cyanosis Skin Wound Narrative: A small ulceration is noted in the patient's right groin, the site of previous ulceration when last treated at our facility. The base of the ulceration demonstrates some fibrotic and nonviable material. There is a moderate amount of bioburden. Dimensions are documented elsewhere. There has been little change in recent weeks. A well-healed right above-knee amputation stump is noted. Neuro oriented x3, CN's II-XII intact bilaterally, moves all extremities and no focal motor deficits Sensorium / Orientation: awake, alert, oriented to person, oriented to place and oriented to time Psych Appearance: grossly normal and appropriate Attitude: calm Activity / Motor Behavior: appropriate eye contact Speech: normal speech Mood & Affect: euthymic mood Thought Process: normal thought process Thought Content: normal thought content Attention / Concentration: attention grossly intact Debridement Note Debridement Note Wound debrided: Right groin Laterality: Right Type of Debridement: Excisional debridement Anesthesia Used: 5% Lidocaine Gel Depth: Down to and including healthy tissue Percentage of wound debrided: 100 Instrument Used: 3mm curette Tissue Removed: Bioburden and nonviable, fibrotic tissue Severity: Fat Layer Exposed Amount of bleeding with debridement: Mild Bleeding Controlled with: Compression and gauze Patient tolerated procedure: Patient tolerated procedure well Post-Debridement Measurements and Additional Note: Post-Debridement Measurements/Treatment - Nurse 1 - General Ulcer Assessment Start: 03/15/22 09:07 Freq: Status: Active Protocol: MICHAEL Activity Type Activity Date Activity User E-sign Co-sign Detail Recorded Client Recorded Date Recorded By Document 03/15/22 09:07 ML [id number] 03/15/22 09:12 ML Document 03/22/22 09:16 KR [id number] 03/22/22 09:19 KR Document 03/29/22 09:23 KR [id number] 03/29/22 09:26 KR Document 04/05/22 09:02 DL [id number] 04/05/22 09:08 DL 03/15/22 03/22/22 03/29/22 09:07 09:16 09:23 - Today's Visit Information Type of service Follow-up Visit Follow-up Visit Follow-up 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/TRANSPORTATION SECURITY SCREENER (Physician/TRANSPORTATION SECURITY SCREENER (Physician/TRANSPORTATION SECURITY SCREENER ) ) ) Arrival Mode Ambulatory Ambulatory Ambulatory Transfer Assistance None Patient Identification Verified (Name & Yes Yes Yes ) Patient Requires Transmission-Based No Precautions Safety Precautions NA Height and Weight Body Mass Index (BMI) 29.8 29.8 29.8 BMI Classification Overweight Overweight Overweight Vital Signs Temperature (97.8 F-99.1 F) 97.4 F L 96.0 F L 97.0 F L Temperature Source Temporal Temporal Temporal Pulse Rate (60-100) 85 78 88 Pulse Location Monitor Monitor Monitor Respiratory Rate (12-18) 16 Respiratory rate source Observation Blood Pressure (90/60-120/80) 166/95 H 124/61 H 167/84 H Blood Pressure Mean 118 82 111 Source Monitor Monitor Monitor Position Sitting Sitting Semi-Fowlers Blood Pressure Location Left Arm Right Arm History Since Last Visit- (Skip if this is Patient's initial visit) Have you changed medications since your No No No last visit? Any new allergies or adverse reactions No No No Had a fall/change in ADL's that may No No No increase risk of falls Signs or symptoms of abuse and/or No No No neglect since last visit Have you been in the hospital since your No No No last visit? Has dressing in place as prescribed No Yes Yes Has compression in place as prescribed N/A N/A N/A Has offloadiing in place as prescribed N/A N/A N/A Experienced any changes in pain level or No No No management Left Footwear Regular Shoe Regular Shoe Regular Shoe Right Footwear Regular Shoe Regular Shoe Regular Shoe Pain Scale: 0-10 Numeric Is Patient Pain Free? Yes Yes Yes 04/05/22 09:02 WC - Today's Visit Information Type of service Follow-up 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/TRANSPORTATION SECURITY SCREENER ) Arrival Mode Ambulatory Transfer Assistance None Patient Identification Verified (Name & Yes ) Patient Requires Transmission-Based No Precautions Safety Precautions Height and Weight Body Mass Index (BMI) 29.8 BMI Classification Overweight Vital Signs Temperature (97.8 F-99.1 F) 97.4 F L Temperature Source Temporal Pulse Rate (60-100) 92 Pulse Location Monitor Respiratory Rate (12-18) 20 H Respiratory rate source Observation Blood Pressure (90/60-120/80) 161/97 H Blood Pressure Mean 118 Source Monitor Position Blood Pressure Location History Since Last Visit- (Skip if this is Patient's initial visit) Have you changed medications since your No last visit? Any new allergies or adverse reactions No Had a fall/change in ADL's that may No increase risk of falls Signs or symptoms of abuse and/or No neglect since last visit Have you been in the hospital since your Yes last visit? Has dressing in place as prescribed Yes Has compression in place as prescribed N/A Has offloadiing in place as prescribed N/A Experienced any changes in pain level or management Left Footwear Right Footwear Pain Scale: 0-10 Numeric Is Patient Pain Free? Yes WC - Nurse 1 - General Ulcer Measurement Start: 03/15/22 09:07 Freq: Status: Active Protocol: Activity Type Activity Date Activity User E-sign Co-sign Detail Recorded Client Recorded Date Recorded By Document 03/15/22 09:07 ML [id number] 03/15/22 09:12 ML Document 03/22/22 09:16 KR [id number] 03/22/22 09:19 KR Document 03/29/22 09:23 KR [id number] 03/29/22 09:26 KR Document 04/05/22 09:02 DL [id number] 04/05/22 09:08 DL 03/15/22 03/22/22 03/29/22 09:07 09:16 09:23 Wound Center Nurse 1 #11 R Groin -Current Size (cm) - Length 1.4 1.3 1 -Current Size (cm) - Width 0.2 2 0.2 -Current Size (cm) - Depth 0.2 0.2 0.2 -Total Square Cm 0.28 2.6 0.2 -Photo Taken -Exudate Amt Small Small -Exudate Type Serosanguineous Serosanguineous -Wound Margin Distinct, Distinct, Distinct, Outline Outline Outline Attached Attached Attached -Granulation Amt Medium (34-66%) None Present (0 None Present (0 %) %) -Slough/Fibrin Yes -Necrosis Amt Medium (34-66%) Small (1-33%) Large (67-100%) -Necrotic Tissue Type Adherent Slough Adherent Slough Adherent Slough -Structure Exposed -Texture (Blanche-wound Skin Appearance) Assessed Assessed, Assessed, Scarring Scarring -Moisture (Blanche-wound Skin Appearance) Assessed No Abnormality, No Abnormality, Assessed Assessed -Color (Blanche-wound Skin Appearance) Assessed No Abnormality, No Abnormality, Assessed Assessed -Temperature (Blanche-wound Skin No Abnormality No Abnormality No Abnormality Appearance) (Pt Warm) (Pt Warm) (Pt Warm) -Tenderness on Palpation (Blanche-wound No No No Skin Appearance) -Ulcer Cleansing Rinsed/ Rinsed/ Rinsed/ Irrigated with Irrigated with Irrigated with Saline Saline Saline -Foul Odor after Cleansing No No -Anesthetic Used 4% Lidocaine 5% Lidocaine 4% Lidocaine Solution Gel Solution 04/05/22 09:02 Wound Center Nurse 1 #11 R Groin -Current Size (cm) - Length 1.5 -Current Size (cm) - Width 0.3 -Current Size (cm) - Depth 0.3 -Total Square Cm 0.45 -Photo Taken No -Exudate Amt Medium -Exudate Type Serosanguineous -Wound Margin Thickened -Granulation Amt None Present (0 %) -Slough/Fibrin -Necrosis Amt Large (67-100%) -Necrotic Tissue Type Adherent Slough -Structure Exposed N/A -Texture (Blanche-wound Skin Appearance) Scarring -Moisture (Blanche-wound Skin Appearance) No Abnormality -Color (Blanche-wound Skin Appearance) No Abnormality -Temperature (Blanche-wound Skin No Abnormality Appearance) (Pt Warm) -Tenderness on Palpation (Blanche-wound No Skin Appearance) -Ulcer Cleansing Rinsed/ Irrigated with Saline -Foul Odor after Cleansing No -Anesthetic Used 4% Lidocaine Solution WC - Nurse 2 - General Ulcer CM Notes Start: 03/15/22 09:07 Freq: Status: Active Protocol: Activity Type Activity Date Activity User E-sign Co-sign Detail Recorded Client Recorded Date Recorded By Document 03/15/22 09:44 PL [id number] 03/15/22 09:44 PL Document 03/22/22 10:08 PL [id number] 03/22/22 10:08 PL Document 03/29/22 09:40 MW [id number] 03/29/22 09:43 MW 03/15/22 03/22/22 03/29/22 09:44 10:08 09:40 Wound Center Nurse 2 #11 R Groin -Time 09:25 09:36 09:40 -Correct Patient Yes Yes Yes -Correct Side, Site, Position Yes Yes Yes -Correct Procedure Yes Yes Yes -Procedure Performed Yes Yes Yes -Type of Procedure Debridement Debridement Debridement -Clinical Debridement Subcutaneous Subcutaneous Subcutaneous -Tissue Removed Subcutaneous Subcutaneous Subcutaneous -Post Debridement (cm) - Length 1.4 1.3 1.4 -Post Debridement (cm) - Width 0.2 0.2 0.3 -Post Debridement (cm) - Depth 0.2 0.2 0.2 -Total Square (Post) (cm) 0.28 0.26 0.42 -Area of Debridement (cm) - Length 1.4 1.3 1.4 -Area of Debridement (cm) - Width 0.2 0.2 0.3 -Total Square (Area) (cm) 0.28 0.26 0.42 -Tunneling No No No -Undermining/Tunneling No No No -Circular Undermining No No No -Wound/Ulcer Outcome Not Healed Not Healed Not Healed -Ulcer Cleansing Rinsed/ Rinsed/ Rinsed/ Irrigated with Irrigated with Irrigated with Saline Saline Saline -Foul Odor after Cleansing No No No -Bioengineered Tissue No No No -Bleeding Controlled with Pressure Pressure Pressure -Treatment Response Procedure Procedure Procedure Tolerated Well Tolerated Well Tolerated Well -Offloading No -Debridement - Subq, 1st 20sq cm Yes Yes Yes Pain Scale: 0-10 Numeric Is Patient Pain Free? Yes Yes Yes - Nurse 3 - General Ulcer D/C NN Start: 03/15/22 09:07 Freq: Status: Active Protocol: Activity Type Activity Date Activity User E-sign Co-sign Detail Recorded Client Recorded Date Recorded By Document 03/15/22 09:34 ML [id number] 03/15/22 09:35 ML Document 03/22/22 09:43 KR [id number] 03/22/22 09:43 KR Document 04/05/22 09:21 DL [id number] 04/05/22 09:22 DL 03/15/22 03/22/22 04/05/22 09:34 09:43 09:21 Wound Care Nurse 3 #11 R Groin -Ulcer Cleansing Rinsed/ Rinsed/ Rinsed/ Irrigated with Irrigated with Irrigated with Saline Saline Saline -Foul Odor after Cleansing No -Other Dressing santyl Santyl -Primary Dressing Covered/Secured with Dry Gauze, Dry Gauze, Dry Gauze, Secured with Secured with Secured with Tape Tape Tape Treatment Response Procedure Tolerated Well Pain Scale: 0-10 Numeric Is Patient Pain Free? Yes Yes Yes - Visit Discharge Discharge Condition Stable Stable Ambulatory Status Ambulatory Ambulatory Transportation Private Auto Private Auto Notes: Pt applies own dressing. Assessment/Plan Assessment/Plan (1) Soft tissue radionecrosis: CODE(S): L59.8 - Other specified disorders of the skin and subcutaneous tissue related to radiation; Y84.2 - Radiological procedure and radiotherapy as the cause of abnormal reaction of the patient, or of later complication, without mention of misadventure at the time of the procedure (2) Radiation injury: CODE(S): T66.XXXA - Radiation sickness, unspecified, initial encounter QUALIFIERS: Encounter type: subsequent encounter Qualified Code(s): T66.XXXD - Radiation sickness, unspecified, subsequent encounter (3) soft tissue radiation injury: (4) History of melanoma: CODE(S): Z85.820 - Personal history of malignant melanoma of skin (5) Ulcer of right groin: CODE(S): L98.499 - Non-pressure chronic ulcer of skin of other sites with unspecified severity QUALIFIERS: Non-pressure ulcer stage: with fat layer exposed Qualified Code(s): L98.492 - Non-pressure chronic ulcer of skin of other sites with fat layer exposed (6) Amputee, above knee: CODE(S): Z89.619 - Acquired absence of unspecified leg above knee (7) Overweight (BMI 25.0-29.9): CODE(S): E66.3 - Overweight (8) History of uterine cancer: CODE(S): Z85.42 - Personal history of malignant neoplasm of other parts of uterus (9) Hyperlipidemia: CODE(S): E78.5 - Hyperlipidemia, unspecified (10) GERD (gastroesophageal reflux disease): CODE(S): K21.9 - Gastro-esophageal reflux disease without esophagitis (11) Obesity (BMI 30.0-34.9): CODE(S): E66.9 - Obesity, unspecified PLAN: Plan This is a 67-year-old female with a complex past medical history, much of which has been detailed above. She presented with a recurrence of her right groin ulceration, secondary to soft tissue radiation injury. The patient has been treated at our facility numerous times in the past. Her current ulceration recurred approximately 2-3 weeks prior to her presentation. We are to continue the use of collagenase Santyl topically. She has been instructed to apply topically on a daily basis. Nutritional optimization has been recommended. Given the nature of the patient's wound, soft tissue radiation injury secondary to prior courses of radiation, the patient would appear to be a candidate for hyperbaric oxygen therapy. This matter has been discussed with patient in detail. She is fully familiar with HBO treatments, having undergone hyperbaric oxygen therapy only several years ago in 2018. Review of the patient's medical history indicates that the patient tolerated hyperbaric oxygen therapy well, without complications. She derived significant benefit from prior HBO treatments. Her health and medical history has not changed in any significant manner since that time, so there appear to be no contraindications to hyperbaric oxygen therapy at this time. Efforts will be made to preauthorize hyperbaric oxygen treatments, which will be initiated upon pre-approval. We will continue to await pre-approval from the patient's insurance company. The patient is to follow-up in 1 week for reevaluation. Swab cultures were recently obtained for both aerobic and anaerobic bacterial growth. The culture results were positive for Staph aureus, Corynebacterium stratum, and Eggerthia catenaformis. Based upon sensitivity results, the patient was started on Augmentin 875 mg p.o. twice daily for total of 10 days, which has been completed. The patient is to follow-up in 1 week for reevaluation. Total time: 29 minutes
== END 2022-04-08 23:59 | disposition home or self-care (01) ==
LOC: WC 09:00
PROVIDERS: PCP Family Medicine; Visit Provider Surgery
DX: L59.8 Other specified disorders of the skin and subcutaneous tissue related to radiation (principal); L98.492 Non-pressure chronic ulcer of skin of other sites with fat layer exposed; K21.9 Gastro-esophageal reflux disease without esophagitis; E66.9 Obesity, unspecified; E78.5 Hyperlipidemia, unspecified; Z87.891 Personal history of nicotine dependence; T66.XXXA Radiation sickness, unspecified, initial encounter; Y84.2 Radiological procedure and radiotherapy as the cause of abnormal reaction of the patient, or of later complication, without mention of misadventure at the time of the procedure; Z86.14 Personal history of Methicillin resistant Staphylococcus aureus infection; Z85.820 Personal history of malignant melanoma of skin; Z85.89 Personal history of malignant neoplasm of other organs and systems
CPT/HCPCS: 11042; 87070; 87075; 87077; 87186; 87205

== ENCOUNTER → 2022-04-14 | Outpatient (CLI) | payer MEDICARE, OTHER, SELFPAY ==
--- NOTE | 2022-04-14 12:22 | RAD_ITS ---
STUDY: CHEST X-RAY SERIES-PA AND LATERAL VIEWS OF 1222 HOURS ON 04/14/2022 REASON FOR EXAM: 67-year-old female for hyperbaric oxygen clearance. TECHNIQUE: A standard 2 view chest x-ray series was performed COMPARISON: None. FINDINGS: Normal osseous structures. Borderline cardiomegaly with a left ventricular cardiac configuration, but no heart failure. Mildly tortuous thoracic aorta. No pulmonary infiltrates, atelectasis, effusion, or pulmonary mass lesions. Mild linear fibrotic changes both lower lobes. No pneumonia, pneumonitis, bronchitis, or pulmonary mass lesions. RAD/Chest PA and Lateral IMPRESSION: 1. Borderline cardiomegaly with a left ventricular cardiac configuration, but no heart failure. 2. No pneumonia, pneumonitis, bronchitis, or pulmonary mass lesions. 3. Minimal linear fibrotic changes in both lower lobes. Electronically Signed: Fletcher Hollingsworth MD at 17:52 EDT ,
[2022-04-14 12:23] LABS: Absolute Lymphocyte Count 1.38 X10^3/uL (0.83-4.51); Absolute Neutrophil Count 4.8 X10^3/uL (2.0-7.7); Basophil# 0.05 X10^3/uL; Basophil% 0.7 % (0-1); Eosinophil# 0.14 X10^3/uL; Eosinophils% 1.9 % (0-5); Hematocrit 40.5 % (37-47); Hemoglobin 13.3 g/dL (12.0-15.0); Lymphocyte # 1.38 X10^3/ul (0.83-4.51); Lymphocyte % 19.1 % (19-41); Mean Corp Hgb Conc 32.8 g/dL (32-36); Mean Corpuscular Hgb 29.2 pg (27.0-32.0); Mean Corpuscular Volume 88.8 fL (81-99); Mean Platelet Vol. 9.5 fl (6.2-12.0); Monocyte# 0.85 X10^3/uL; Monocyte% 11.7 % (0-10); NRBC Flagged by Analyzer 0 % (0-5); Neutrophil # 4.78 X10^3/uL (2.7-7.7); Platelet Count 223 K/mm3 (150-450); RBC Distribution Width CV 12.7 % (11.6-14.6); RBC Distribution Width SD 41.3 fl (35.1-43.9); Red Blood Count 4.56 M/mm3 (4.2-5.4); White Blood Count 7.2 K/mm3 (4.4-11.0)
[2022-04-14 13:03] LABS: AST(SGOT) 14 U/L (15-37); Alanine Aminotransfer ALT/SGPT 27 U/L (13-56); Albumin, Serum 3.5 g/dL (3.2-5.0); Alkaline Phosphatase 73 U/L (45-117); Anion Gap 6 (5-15); BUN 17 mg/dL (7-18); BUN/Creat Ratio 29.6 RATIO (10-20); Calcium,Total 9.2 mg/dL (8.5-10.1); Chloride 104 mmol/L (98-107); Creatinine, Serum 0.58 mg/dL (0.55-1.02); EST Glomerular Filtration Rate 111 mL/min (>60); Est Glom Filt Rate - Afr Amer 135 mL/min (>60); Globulin 3.6 g/dL (2.2-4.2); Glucose 93 mg/dL (74-106); Potassium 4.1 mmol/L (3.5-5.1); Protein, Total 7.1 g/dL (6.4-8.2); Sodium Level 138 mmol/L (136-145)
[2022-04-14 13:18] LABS: Hemoglobin A1c 5.9 % (3.8-5.6)
== END | disposition home or self-care (01) ==
PROVIDERS: PCP Family Medicine; Referring Provider Surgery; Visit Provider Surgery
DX: Z13.83 Encounter for screening for respiratory disorder NEC (principal); E78.5 Hyperlipidemia, unspecified; Z79.899 Other long term (current) drug therapy
CPT/HCPCS: 36415; 71046; 80053; 83036; 85025; 93005

== ENCOUNTER 2022-05-09 13:00 | Outpatient (RCR) | payer MEDICARE, OTHER, SELFPAY ==
[2022-04-09 00:38] VITALS: BP 161/97; PULSE 92; RESP 20; TEMP 36.3; BMI 29.8
[2022-04-12 09:28] VITALS: BP 134/83; PULSE 90; TEMP 35.7; BMI 29.8
--- NOTE | 2022-04-12 12:42 | HP.PCM_ITS ---
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 The patient was diagnosed with melanoma of the right calf in the 1969's. 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 The patient underwent excision of her melanoma with lymphadenectomy in the right groin. She also underwent lengthy radiation treatments at the [facility] in [place], [place]. Melanoma recurred, and the patient was subsequently treated with monoclonal antibodies in 1984. 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 Treatment included local ulcer care and hyperbaric oxygen therapy. She underwent a total of nearly 90 treatments of hyperbaric oxygen therapy. It is known that she tolerated the therapies well, and derived significant benefit. 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 She has also undergone several more sessions of hyperbaric oxygen therapy. She also received a series of 10 EpiFix allografts in the course of previous treatment. Each of the patient's prior courses of treatment in our facility have been protracted, with difficulties encountered in achieving complete healing. Her most recent course of treatment ended with successful healing and discharge in February 2021. The patient presented at this time with a recurrence of her right groin ulceration, again thought to be secondary to soft tissue radiation injury. The ulceration recurred spontaneously approximately 2-3 weeks prior to her presentation. The patient indicates that her health history has not changed since she was last treated in our facility. [facility] Medical History Bilateral cataracts Cancer Hemorrhoids Knee pain Radiation injury Home Medications famotidine 20 mg tablet 20 mg PO 06/20/17 [History Last Taken Unknown] pravastatin 20 mg tablet 20 mg PO DAILY 06/20/17 [History Last Taken Unknown] famotidine 40 mg tablet PO 90 days ##90 12/26/17 [History Last Taken Unknown] pravastatin 20 mg tablet PO 90 days ##90 12/26/17 [History Last Taken Unknown] Allergy/AdvReac Type Severity Reaction Status Date / Time No Known Allergies Allergy Verified 02/15/22 09:08 Family History Other Heart disease Hypertension Surgical History Hx of AKA (above knee amputation) Social History Smoking Status: Former smoker alcohol intake: current alcohol intake frequency: holidays/special occasions only Vital Signs Vital Signs Vital Signs: 04/12/22 09:28 Temperature 96.2 F L Temperature Source Temporal Pulse Rate 90 Blood Pressure 134/83 H Blood Pressure Mean 100 Blood Pressure Source Monitor Weight Weight: 196 lb 1.696 oz Body Mass Index (BMI) 29.8 Physical Exam Const alert, oriented x3, no apparent distress and well nourished General Appearance: cooperative, comfortable, well kempt and well developed Orientation / Consciousness: awake, oriented to person, oriented to place and oriented to time Exam Limitations: no limitations HEENT normocephalic and head/scalp atraumatic Head and Scalp: normal to inspection, normocephalic and atraumatic External Ear: external ears normal Eyes PERRL and EOMs intact bilaterally General Eye: normal appearance of both eyes Resp normal respiratory effort, normal air movement, no retractions and no use of accessory muscles Effort and Inspection: able to speak in complete sentences Extremity no calf tenderness Extremity Narrative: A well-healed right above-knee amputation stump is noted. General Extremity: Negative for clubbing or cyanosis Skin Wound Narrative: A small ulceration is noted in the patient's right groin, the site of previous ulceration when last treated at our facility. The base of the ulceration demonstrates some fibrotic and nonviable material. There is a moderate amount of bioburden. Dimensions are documented elsewhere. There has been little change in recent weeks. A well-healed right above-knee amputation stump is noted. Neuro oriented x3, CN's II-XII intact bilaterally, moves all extremities and no focal motor deficits Sensorium / Orientation: awake, alert, oriented to person, oriented to place and oriented to time Psych Appearance: grossly normal and appropriate Attitude: calm Activity / Motor Behavior: appropriate eye contact Speech: normal speech Mood & Affect: euthymic mood Thought Process: normal thought process Thought Content: normal thought content Attention / Concentration: attention grossly intact Debridement Note Debridement Note Wound debrided: Right groin Laterality: Right Type of Debridement: Excisional debridement Anesthesia Used: 5% Lidocaine Gel Depth: Down to and including healthy tissue and in the subcutaneous layer Percentage of wound debrided: 100 Instrument Used: 3mm curette Tissue Removed: Bioburden and fibrous, nonviable tissue Severity: Fat Layer Exposed Amount of bleeding with debridement: Mild Bleeding Controlled with: Compression and gauze Patient tolerated procedure: Patient tolerated procedure well Post-Debridement Measurements and Additional Note: Post-Debridement Measurements/Treatment - Nurse 1 - General Ulcer Assessment Start: 04/12/22 09:27 Freq: Status: Active Protocol: MICHAEL Activity Type Activity Date Activity User E-sign Co-sign Detail Recorded Client Recorded Date Recorded By Document 04/12/22 09:28 HAI [id number] 04/12/22 09:33 HAI 04/12/22 09:28 WC - Today's Visit Information Type of service Follow-up 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/ASSISTANT ATTORNEY GENERAL ) Arrival Mode Ambulatory Patient Identification Verified (Name & Yes ) Patient Requires Transmission-Based No Precautions Safety Precautions NA Height and Weight Body Mass Index (BMI) 29.8 BMI Classification Overweight Vital Signs Temperature (97.8 F-99.1 F) 96.2 F L Temperature Source Temporal Pulse Rate (60-100) 90 Pulse Location Monitor Blood Pressure (90/60-120/80) 134/83 H Blood Pressure Mean 100 Source Monitor History Since Last Visit- (Skip if this is Patient's initial visit) Have you changed medications since your No last visit? Any new allergies or adverse reactions No Had a fall/change in ADL's that may No increase risk of falls Signs or symptoms of abuse and/or No neglect since last visit Have you been in the hospital since your No last visit? Has dressing in place as prescribed Yes Has compression in place as prescribed N/A Has offloadiing in place as prescribed N/A Experienced any changes in pain level or No management Left Footwear Regular Shoe Right Footwear Regular Shoe Pain Scale: 0-10 Numeric Is Patient Pain Free? Yes WC - Nurse 1 - General Ulcer Measurement Start: 04/12/22 09:27 Freq: Status: Active Protocol: Activity Type Activity Date Activity User E-sign Co-sign Detail Recorded Client Recorded Date Recorded By Document 04/12/22 09:28 AK [id number] 04/12/22 09:33 AK 04/12/22 09:28 Wound Center Nurse 1 #11 R Groin -Combined with other wound No -Current Size (cm) - Length 1.5 -Current Size (cm) - Width 0.2 -Current Size (cm) - Depth 0.3 -Total Square Cm 0.30 -Photo Taken No -Tunneling No -Undermining/Tunneling No -Circular Undermining No -Change in Wound Grade/Stage No -Exudate Amt Medium -Exudate Type Serosanguineous -Wound Margin Distinct, Outline Attached -Granulation Amt None Present (0 %) -Granulation Quality N/A -Slough/Fibrin No -Necrosis Amt None Present (0 %) -Necrotic Tissue Type Adherent Slough -Structure Exposed N/A -Texture (Blanche-wound Skin Appearance) No Abnormality, Assessed -Moisture (Blanche-wound Skin Appearance) No Abnormality, Assessed -Color (Blanche-wound Skin Appearance) No Abnormality, Assessed -Temperature (Blanche-wound Skin No Abnormality Appearance) (Pt Warm) -Tenderness on Palpation (Blanche-wound No Skin Appearance) -Ulcer Cleansing Rinsed/ Irrigated with Saline -Foul Odor after Cleansing No -Anesthetic Used 4% Lidocaine Solution WC - Nurse 2 - General Ulcer CM Notes Start: 04/12/22 09:27 Freq: Status: Active Protocol: Activity Type Activity Date Activity User E-sign Co-sign Detail Recorded Client Recorded Date Recorded By Document 04/12/22 11:19 PL [id number] 04/12/22 11:20 PL 04/12/22 11:19 Wound Center Nurse 2 -Time 09:45 -Correct Patient Yes -Correct Side, Site, Position Yes -Correct Procedure Yes -Procedure Performed Yes -Type of Procedure Debridement -Clinical Debridement Subcutaneous -Tissue Removed Subcutaneous -Post Debridement (cm) - Length 1.5 -Post Debridement (cm) - Width 0.2 -Post Debridement (cm) - Depth 0.3 -Total Square (Post) (cm) 0.30 -Area of Debridement (cm) - Length 1.5 -Area of Debridement (cm) - Width 0.2 -Total Square (Area) (cm) 0.30 -Tunneling No -Undermining/Tunneling No -Circular Undermining No -Wound/Ulcer Outcome Not Healed -Ulcer Cleansing Rinsed/ Irrigated with Saline -Foul Odor after Cleansing No -Bioengineered Tissue No -Bleeding Controlled with Pressure -Treatment Response Procedure Tolerated Well -Debridement - Subq, 1st 20sq cm Yes Pain Scale: 0-10 Numeric Is Patient Pain Free? Yes WC - Nurse 3 - General Ulcer D/C NN Start: 04/12/22 09:27 Freq: Status: Active Protocol: Activity Type Activity Date Activity User E-sign Co-sign Detail Recorded Client Recorded Date Recorded By Document 04/12/22 11:15 HAI [id number] 04/12/22 11:18 HAI 04/12/22 11:15 Wound Care Nurse 3 #11 R Groin -Ulcer Cleansing Rinsed/ Irrigated with Saline -Foul Odor after Cleansing No -Negative Pressure Wound Therapy N/A -Other Dressing own santyl and own dressings and tape Pain Scale: 0-10 Numeric Is Patient Pain Free? Yes - Visit Discharge Discharge Condition Stable Ambulatory Status Ambulatory Transportation Private Auto Medication Reconcilliation completed & Yes provided to patient/care provider Clinical Summary of Care Provided Yes Assessment/Plan Assessment/Plan (1) Soft tissue radionecrosis: CODE(S): L59.8 - Other specified disorders of the skin and subcutaneous tissue related to radiation; Y84.2 - Radiological procedure and radiotherapy as the cause of abnormal reaction of the patient, or of later complication, without mention of misadventure at the time of the procedure (2) Radiation injury: CODE(S): T66.XXXA - Radiation sickness, unspecified, initial encounter QUALIFIERS: Encounter type: subsequent encounter Qualified Code(s): T66.XXXD - Radiation sickness, unspecified, subsequent encounter (3) soft tissue radiation injury: (4) History of melanoma: CODE(S): Z85.820 - Personal history of malignant melanoma of skin (5) Ulcer of right groin: CODE(S): L98.499 - Non-pressure chronic ulcer of skin of other sites with unspecified severity QUALIFIERS: Non-pressure ulcer stage: with fat layer exposed Qualified Code(s): L98.492 - Non-pressure chronic ulcer of skin of other sites with fat layer exposed (6) Amputee, above knee: CODE(S): Z89.619 - Acquired absence of unspecified leg above knee (7) Overweight (BMI 25.0-29.9): CODE(S): E66.3 - Overweight (8) History of uterine cancer: CODE(S): Z85.42 - Personal history of malignant neoplasm of other parts of uterus (9) Hyperlipidemia: CODE(S): E78.5 - Hyperlipidemia, unspecified (10) GERD (gastroesophageal reflux disease): CODE(S): K21.9 - Gastro-esophageal reflux disease without esophagitis (11) Obesity (BMI 30.0-34.9): CODE(S): E66.9 - Obesity, unspecified PLAN: Plan This is a 67-year-old female with a complex past medical history, much of which has been detailed above. She presented with a recurrence of her right groin ulceration, secondary to soft tissue radiation injury. The patient has been treated at our facility numerous times in the past. Her current ulceration recurred approximately 2-3 weeks prior to her presentation. We are to continue the use of collagenase Santyl topically. She has been instructed to apply topically on a daily basis. Nutritional optimization has been recommended. Given the nature of the patient's wound, soft tissue radiation injury secondary to prior courses of radiation, the patient would appear to be a candidate for hyperbaric oxygen therapy. This matter has been discussed with patient in detail. She is fully familiar with HBO treatments, having undergone hyperbaric oxygen therapy only several years ago in 2018. Review of the patient's medical history indicates that the patient tolerated hyperbaric oxygen therapy well, without complications. She derived significant benefit from prior HBO treatments. Her health and medical history has not changed in any significant manner since that time, so there appear to be no contraindications to hyperbaric oxygen therapy at this time. Efforts will be made to preauthorize hyperbaric oxygen treatments, which will be initiated upon pre-approval. We will continue to await pre-approval from the patient's insurance company. We are to obtain routine laboratory studies, an EKG, and a chest x-ray as a prelude to anticipated HBO therapy. The patient is to follow-up in 1 week for reevaluation. Swab cultures were recently obtained for both aerobic and anaerobic bacterial growth. The culture results were positive for Staph aureus, Corynebacterium stratum, and Eggerthia catenaformis. Based upon sensitivity results, the patient was started on Augmentin 875 mg p.o. twice daily for total of 10 days, which has been completed. The patient is to follow-up in 1 week for reevaluation. Total time: 29 minutes
[2022-04-19 08:50] VITALS: BP 150/92; PULSE 90; RESP 18; TEMP 36.3; BMI 29.8
--- NOTE | 2022-04-19 13:28 | HP.PCM_ITS ---
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 The patient was diagnosed with melanoma of the right calf in the 1969's. 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 The patient underwent excision of her melanoma with lymphadenectomy in the right groin. She also underwent lengthy radiation treatments at the [facility] in [place], [place]. Melanoma recurred, and the patient was subsequently treated with monoclonal antibodies in 1984. 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 Treatment included local ulcer care and hyperbaric oxygen therapy. She underwent a total of nearly 90 treatments of hyperbaric oxygen therapy. It is known that she tolerated the therapies well, and derived significant benefit. 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 She has also undergone several more sessions of hyperbaric oxygen therapy. She also received a series of 10 EpiFix allografts in the course of previous treatment. Each of the patient's prior courses of treatment in our facility have been protracted, with difficulties encountered in achieving complete healing. Her most recent course of treatment ended with successful healing and discharge in February 2021. The patient presented at this time with a recurrence of her right groin ulceration, again thought to be secondary to soft tissue radiation injury. The ulceration recurred spontaneously approximately 2-3 weeks prior to her presentation. The patient indicates that her health history has not changed since she was last treated in our facility. [facility] Medical History Bilateral cataracts Cancer Hemorrhoids Knee pain Radiation injury Home Medications famotidine 20 mg tablet 20 mg PO 06/20/17 [History Last Taken Unknown] pravastatin 20 mg tablet 20 mg PO DAILY 06/20/17 [History Last Taken Unknown] famotidine 40 mg tablet PO 90 days ##90 12/26/17 [History Last Taken Unknown] pravastatin 20 mg tablet PO 90 days ##90 12/26/17 [History Last Taken Unknown] Allergy/AdvReac Type Severity Reaction Status Date / Time No Known Allergies Allergy Verified 02/15/22 09:08 Family History Other Heart disease Hypertension Surgical History Hx of AKA (above knee amputation) Social History Smoking Status: Former smoker alcohol intake: current alcohol intake frequency: holidays/special occasions only Vital Signs Vital Signs Vital Signs: 04/19/22 08:50 Temperature 97.4 F L Temperature Source Temporal Pulse Rate 90 Respiratory Rate 18 Blood Pressure 150/92 H Blood Pressure Mean 111 Blood Pressure Source Monitor Weight Weight: 196 lb 1.696 oz Body Mass Index (BMI) 29.8 Physical Exam Const alert, oriented x3, no apparent distress and well nourished General Appearance: cooperative, comfortable, well kempt and well developed Orientation / Consciousness: awake, oriented to person, oriented to place and oriented to time Exam Limitations: no limitations HEENT normocephalic and head/scalp atraumatic Head and Scalp: normal to inspection, normocephalic and atraumatic External Ear: external ears normal Eyes PERRL and EOMs intact bilaterally General Eye: normal appearance of both eyes Resp normal respiratory effort, normal air movement, no retractions and no use of accessory muscles Effort and Inspection: able to speak in complete sentences Extremity no calf tenderness Extremity Narrative: A well-healed right above-knee amputation stump is noted. General Extremity: Negative for clubbing or cyanosis Skin Wound Narrative: A small ulceration is noted in the patient's right groin, the site of previous ulceration when last treated at our facility. The base of the ulceration demonstrates some fibrotic and nonviable material. There is a moderate amount of bioburden. Dimensions are documented elsewhere. There has been little change in recent weeks. A well-healed right above-knee amputation stump is noted. Neuro oriented x3, CN's II-XII intact bilaterally, moves all extremities and no focal motor deficits Sensorium / Orientation: awake, alert, oriented to person, oriented to place and oriented to time Psych Appearance: grossly normal and appropriate Attitude: calm Activity / Motor Behavior: appropriate eye contact Speech: normal speech Mood & Affect: euthymic mood Thought Process: normal thought process Thought Content: normal thought content Attention / Concentration: attention grossly intact Debridement Note Debridement Note Wound debrided: Right groin Laterality: Right Type of Debridement: Excisional debridement Anesthesia Used: 5% Lidocaine Gel Depth: Down to and including healthy tissue and in the subcutaneous layer Percentage of wound debrided: 100 Instrument Used: 3mm curette Tissue Removed: Bioburden and fibrous, nonviable tissue Severity: Fat Layer Exposed Amount of bleeding with debridement: Mild Bleeding Controlled with: Compression and gauze Patient tolerated procedure: Patient tolerated procedure well Post-Debridement Measurements and Additional Note: Post-Debridement Measurements/Treatment - Nurse 1 - General Ulcer Assessment Start: 04/12/22 09:27 Freq: Status: Active Protocol: KISHA.XOCHITL Activity Type Activity Date Activity User E-sign Co-sign Detail Recorded Client Recorded Date Recorded By Document 04/12/22 09:28 AK [id number] 04/12/22 09:33 AK Document 04/19/22 08:50 DL [id number] 04/19/22 08:56 DL 04/12/22 04/19/22 09:28 08:50 WC - Today's Visit Information Type of service Follow-up Visit Follow-up 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/PACKAGE REINSPECTOR (Physician/PACKAGE REINSPECTOR ) ) Arrival Mode Ambulatory Ambulatory Transfer Assistance None Patient Identification Verified (Name & Yes Yes ) Patient Requires Transmission-Based No No Precautions Safety Precautions NA Height and Weight Body Mass Index (BMI) 29.8 29.8 BMI Classification Overweight Overweight Vital Signs Temperature (97.8 F-99.1 F) 96.2 F L 97.4 F L Temperature Source Temporal Temporal Pulse Rate (60-100) 90 90 Pulse Location Monitor Monitor Respiratory Rate (12-18) 18 Respiratory rate source Observation Blood Pressure (90/60-120/80) 134/83 H 150/92 H Blood Pressure Mean 100 111 Source Monitor Monitor History Since Last Visit- (Skip if this is Patient's initial visit) Have you changed medications since your No No last visit? Any new allergies or adverse reactions No No Had a fall/change in ADL's that may No No increase risk of falls Signs or symptoms of abuse and/or No No neglect since last visit Have you been in the hospital since your No No last visit? Has dressing in place as prescribed Yes Yes Has compression in place as prescribed N/A N/A Has offloadiing in place as prescribed N/A Yes Experienced any changes in pain level or No No management Left Footwear Regular Shoe Right Footwear Regular Shoe Pain Scale: 0-10 Numeric Is Patient Pain Free? Yes Yes WC - Nurse 1 - General Ulcer Measurement Start: 04/12/22 09:27 Freq: Status: Active Protocol: Activity Type Activity Date Activity User E-sign Co-sign Detail Recorded Client Recorded Date Recorded By Document 04/12/22 09:28 AK [id number] 04/12/22 09:33 AK Document 04/19/22 08:50 DL [id number] 04/19/22 08:56 DL 04/12/22 04/19/22 09:28 08:50 Wound Center Nurse 1 #11 R Groin -Combined with other wound No -Current Size (cm) - Length 1.5 1.6 -Current Size (cm) - Width 0.2 0.4 -Current Size (cm) - Depth 0.3 0.3 -Total Square Cm 0.30 0.64 -Photo Taken No Yes -Tunneling No -Undermining/Tunneling No -Circular Undermining No -Change in Wound Grade/Stage No -Exudate Amt Medium Small -Exudate Type Serosanguineous Serosanguineous -Wound Margin Distinct, Thickened Outline Attached -Granulation Amt None Present (0 Small (1-33%) %) -Granulation Quality N/A [place] -Slough/Fibrin No -Necrosis Amt None Present (0 Small (1-33%) %) -Necrotic Tissue Type Adherent Slough Adherent Slough -Structure Exposed N/A N/A -Texture (Blanche-wound Skin Appearance) No Abnormality, Scarring Assessed -Moisture (Blanche-wound Skin Appearance) No Abnormality, No Abnormality Assessed -Color (Blanche-wound Skin Appearance) No Abnormality, No Abnormality Assessed -Temperature (Blanche-wound Skin No Abnormality No Abnormality Appearance) (Pt Warm) (Pt Warm) -Tenderness on Palpation (Blanche-wound No No Skin Appearance) -Ulcer Cleansing Rinsed/ Rinsed/ Irrigated with Irrigated with Saline Saline -Foul Odor after Cleansing No No -Anesthetic Used 4% Lidocaine 4% Lidocaine Solution Solution WC - Nurse 2 - General Ulcer CM Notes Start: 04/12/22 09:27 Freq: Status: Active Protocol: Activity Type Activity Date Activity User E-sign Co-sign Detail Recorded Client Recorded Date Recorded By Document 04/12/22 11:19 PL [id number] 04/12/22 11:20 PL Document 04/19/22 12:02 PL [id number] 04/19/22 12:03 PL 04/12/22 04/19/22 11:19 12:02 Wound Center Nurse 2 #11 R Groin -Time 09:45 09:09 -Correct Patient Yes Yes -Correct Side, Site, Position Yes Yes -Correct Procedure Yes Yes -Procedure Performed Yes Yes -Type of Procedure Debridement Debridement -Clinical Debridement Subcutaneous Subcutaneous -Tissue Removed Subcutaneous Subcutaneous -Post Debridement (cm) - Length 1.5 1.6 -Post Debridement (cm) - Width 0.2 0.4 -Post Debridement (cm) - Depth 0.3 0.3 -Total Square (Post) (cm) 0.30 0.64 -Area of Debridement (cm) - Length 1.5 1.6 -Area of Debridement (cm) - Width 0.2 0.4 -Total Square (Area) (cm) 0.30 0.64 -Tunneling No No -Undermining/Tunneling No No -Circular Undermining No No -Wound/Ulcer Outcome Not Healed Not Healed -Ulcer Cleansing Rinsed/ Rinsed/ Irrigated with Irrigated with Saline Saline -Foul Odor after Cleansing No No -Bioengineered Tissue No No -Bleeding Controlled with Pressure Pressure -Treatment Response Procedure Procedure Tolerated Well Tolerated Well -Debridement - Subq, 1st 20sq cm Yes Yes Pain Scale: 0-10 Numeric Is Patient Pain Free? Yes Yes WC - Nurse 3 - General Ulcer D/C NN Start: 04/12/22 09:27 Freq: Status: Active Protocol: Activity Type Activity Date Activity User E-sign Co-sign Detail Recorded Client Recorded Date Recorded By Document 04/12/22 11:15 AK [id number] 04/12/22 11:18 AK Document 04/19/22 11:00 DL [id number] 04/19/22 11:02 DL 04/12/22 04/19/22 11:15 11:00 Wound Care Nurse 3 #11 R Groin -Ulcer Cleansing Rinsed/ Rinsed/ Irrigated with Irrigated with Saline Saline -Foul Odor after Cleansing No No -Negative Pressure Wound Therapy N/A -Other Dressing own santyl and Santyl own dressings and tape -Primary Dressing Covered/Secured with Dry Gauze, Secured with Tape Treatment Response Procedure Tolerated Well Pain Scale: 0-10 Numeric Is Patient Pain Free? Yes Yes WC - Visit Discharge Discharge Condition Stable Stable Ambulatory Status Ambulatory Ambulatory Transportation Private Auto Private Auto Medication Reconcilliation completed & Yes provided to patient/care provider Clinical Summary of Care Provided Yes Notes: Pt applied her own dressing today. Assessment/Plan Assessment/Plan (1) Soft tissue radionecrosis: CODE(S): L59.8 - Other specified disorders of the skin and subcutaneous tissue related to radiation; Y84.2 - Radiological procedure and radiotherapy as the cause of abnormal reaction of the patient, or of later complication, without mention of misadventure at the time of the procedure (2) Radiation injury: CODE(S): T66.XXXA - Radiation sickness, unspecified, initial encounter QUALIFIERS: Encounter type: subsequent encounter Qualified Code(s): T66.XXXD - Radiation sickness, unspecified, subsequent encounter (3) soft tissue radiation injury: (4) History of melanoma: CODE(S): Z85.820 - Personal history of malignant melanoma of skin (5) Ulcer of right groin: CODE(S): L98.499 - Non-pressure chronic ulcer of skin of other sites with unspecified severity QUALIFIERS: Non-pressure ulcer stage: with fat layer exposed Qualified Code(s): L98.492 - Non-pressure chronic ulcer of skin of other sites with fat layer exposed (6) Amputee, above knee: CODE(S): Z89.619 - Acquired absence of unspecified leg above knee (7) Overweight (BMI 25.0-29.9): CODE(S): E66.3 - Overweight (8) History of uterine cancer: CODE(S): Z85.42 - Personal history of malignant neoplasm of other parts of uterus (9) Hyperlipidemia: CODE(S): E78.5 - Hyperlipidemia, unspecified (10) GERD (gastroesophageal reflux disease): CODE(S): K21.9 - Gastro-esophageal reflux disease without esophagitis (11) Obesity (BMI 30.0-34.9): CODE(S): E66.9 - Obesity, unspecified PLAN: Plan This is a 67-year-old female with a complex past medical history, much of which has been detailed above. She presented with a recurrence of her right groin ulceration, secondary to soft tissue radiation injury. The patient has been treated at our facility numerous times in the past. Her current ulceration recurred approximately 2-3 weeks prior to her presentation. We are to continue the use of collagenase Santyl topically. She has been instructed to apply topically on a daily basis. Nutritional optimization has been recommended. Given the nature of the patient's wound, soft tissue radiation injury secondary to prior courses of radiation, the patient would appear to be a candidate for hyperbaric oxygen therapy. This matter has been discussed with patient in detail. She is fully familiar with HBO treatments, having undergone hyperbaric oxygen therapy only several years ago in 2018. Review of the patient's medical history indicates that the patient tolerated hyperbaric oxygen therapy well, without complications. She derived significant benefit from prior HBO treatments. Her health and medical history has not changed in any significant manner since that time, so there appear to be no contraindications to hyperbaric oxygen therapy at this time. The patient has recently undergone routine laboratory studies, which are normal. Both a CBC and a comprehensive metabolic profile revealed no significant abnormalities. A chest x-ray reveals borderline cardiomegaly without evidence of heart failure. There is no evidence of pneumonia, pneumonitis, bronchitis, or pulmonary mass lesions. Minimal linear fibrotic changes are noted. An EKG reveals sinus rhythm with occasional premature ventricular complexes. It is likely that this is a benign finding, and not a contraindication to hyperbaric oxygen therapy. However, we are to obtain clearance from a cardiac standpoint for hyperbaric oxygen therapy, either from the patient's primary care physician or by way of a Cardiology consult. Efforts will be made to preauthorize hyperbaric oxygen treatments, which will be initiated upon pre-approval. We will continue to await pre-approval from the patient's insurance company. The patient is to follow-up in 1 week for reevaluation. Swab cultures were recently obtained for both aerobic and anaerobic bacterial growth. The culture results were positive for Staph aureus, Corynebacterium stratum, and Eggerthia catenaformis. Based upon sensitivity results, the patient was started on Augmentin 875 mg p.o. twice daily for total of 10 days, which has been completed. The patient is to follow-up in 1 week for reevaluation. Total time: 28 minutes
[2022-04-26 09:08] VITALS: BP 147/80; PULSE 91; TEMP 35.7; BMI 29.8
--- NOTE | 2022-04-26 10:10 | HP.PCM_ITS ---
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 The patient was diagnosed with melanoma of the right calf in the 1969's. 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 The patient underwent excision of her melanoma with lymphadenectomy in the right groin. She also underwent lengthy radiation treatments at the [facility] in [place], [place]. Melanoma recurred, and the patient was subsequently treated with monoclonal antibodies in 1984. 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 Treatment included local ulcer care and hyperbaric oxygen therapy. She underwent a total of nearly 90 treatments of hyperbaric oxygen therapy. It is known that she tolerated the therapies well, and derived significant benefit. 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 She has also undergone several more sessions of hyperbaric oxygen therapy. She also received a series of 10 EpiFix allografts in the course of previous treatment. Each of the patient's prior courses of treatment in our facility have been protracted, with difficulties encountered in achieving complete healing. Her most recent course of treatment ended with successful healing and discharge in February 2021. The patient presented at this time with a recurrence of her right groin ulceration, again thought to be secondary to soft tissue radiation injury. The ulceration recurred spontaneously approximately 2-3 weeks prior to her presentation. The patient indicates that her health history has not changed since she was last treated in our facility. [facility], [facility] Medical History Bilateral cataracts Cancer Hemorrhoids Knee pain Radiation injury Home Medications famotidine 20 mg tablet 20 mg PO 06/20/17 [History Last Taken Unknown] pravastatin 20 mg tablet 20 mg PO DAILY 06/20/17 [History Last Taken Unknown] famotidine 40 mg tablet PO 90 days ##90 12/26/17 [History Last Taken Unknown] pravastatin 20 mg tablet PO 90 days ##90 12/26/17 [History Last Taken Unknown] Allergy/AdvReac Type Severity Reaction Status Date / Time No Known Allergies Allergy Verified 02/15/22 09:08 Family History Other Heart disease Hypertension Surgical History Hx of AKA (above knee amputation) Social History Smoking Status: Former smoker alcohol intake: current alcohol intake frequency: holidays/special occasions only Vital Signs Vital Signs Vital Signs: 04/26/22 09:08 Temperature 96.3 F L Temperature Source Temporal Pulse Rate 91 Blood Pressure 147/80 H Blood Pressure Mean 102 Blood Pressure Source Monitor Blood Pressure Position Semi-Fowlers Blood Pressure Location Right Arm Weight Weight: 196 lb 1.696 oz Body Mass Index (BMI) 29.8 Physical Exam Const alert, oriented x3, no apparent distress and well nourished General Appearance: cooperative, comfortable, well kempt and well developed Orientation / Consciousness: awake, oriented to person, oriented to place and oriented to time Exam Limitations: no limitations HEENT normocephalic and head/scalp atraumatic Head and Scalp: normal to inspection, normocephalic and atraumatic External Ear: external ears normal Eyes PERRL and EOMs intact bilaterally General Eye: normal appearance of both eyes Resp normal respiratory effort, normal air movement, no retractions and no use of accessory muscles Effort and Inspection: able to speak in complete sentences Extremity no calf tenderness Extremity Narrative: A well-healed right above-knee amputation stump is noted. General Extremity: Negative for clubbing or cyanosis Skin Wound Narrative: A small ulceration is noted in the patient's right groin, the site of previous ulceration when last treated at our facility. The base of the ulceration demonstrates some fibrotic and nonviable material. There is a moderate amount of bioburden. Dimensions are documented elsewhere. There has been little change in recent weeks. A well-healed right above-knee amputation stump is n oted. Neuro oriented x3, CN's II-XII intact bilaterally, moves all extremities and no focal motor deficits Sensorium / Orientation: awake, alert, oriented to person, oriented to place and oriented to time Psych Appearance: grossly normal and appropriate Attitude: calm Activity / Motor Behavior: appropriate eye contact Speech: normal speech Mood & Affect: euthymic mood Thought Process: normal thought process Thought Content: normal thought content Attention / Concentration: attention grossly intact Debridement Note Debridement Note Wound debrided: Right groin Laterality: Right Type of Debridement: Excisional debridement Anesthesia Used: 5% Lidocaine Gel Depth: Down to and including healthy tissue and in the subcutaneous layer Percentage of wound debrided: 100 Instrument Used: 3mm curette Tissue Removed: Bioburden and fibrous, nonviable tissue Severity: Fat Layer Exposed Amount of bleeding with debridement: Mild Bleeding Controlled with: Compression and gauze Patient tolerated procedure: Patient tolerated procedure well Post-Debridement Measurements and Additional Note: Post-Debridement Measurements/Treatment WC - Nurse 1 - General Ulcer Assessment Start: 04/12/22 09:27 Freq: Status: Active Protocol: MICHAEL Activity Type Activity Date Activity User E-sign Co-sign Detail Recorded Client Recorded Date Recorded By Document 04/12/22 09:28 AK [id number] 04/12/22 09:33 AK Document 04/19/22 08:50 DL [id number] 04/19/22 08:56 DL Document 04/26/22 09:08 KR [id number] 04/26/22 09:11 KR 04/12/22 04/19/22 04/26/22 09:28 08:50 09:08 - Today's Visit Information Type of service Follow-up Visit Follow-up Visit Follow-up 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/HIGH [employer]CHO[employer] D[employer]ING TEACHER (Physician/HIGH SCHOOL DRAFTING TEACHER (Physician/HIGH SCHOOL DRAFTING TEACHER ) ) ) Arrival Mode Ambulatory Ambulatory Ambulatory Transfer Assistance None Patient Identification Verified (Name & Yes Yes Yes ) Patient Requires Transmission-Based No No Precautions Safety Precautions NA Height and Weight Body Mass Index (BMI) 29.8 29.8 29.8 BMI Classification Overweight Overweight Overweight Vital Signs Temperature (97.8 F-99.1 F) 96.2 F L 97.4 F L 96.3 F L Temperature Source Temporal Temporal Temporal Pulse Rate (60-100) 90 90 91 Pulse Location Monitor Monitor Monitor Respiratory Rate (12-18) 18 Respiratory rate source Observation Blood Pressure (90/60-120/80) 134/83 H 150/92 H 147/80 H Blood Pressure Mean 100 111 102 Source Monitor Monitor Monitor Position Semi-Fowlers Blood Pressure Location Right Arm History Since Last Visit- (Skip if this is Patient's initial visit) Have you changed medications since your No No No last visit? Any new allergies or adverse reactions No No No Had a fall/change in ADL's that may No No No increase risk of falls Signs or symptoms of abuse and/or No No No neglect since last visit Have you been in the hospital since your No No No last visit? Has dressing in place as prescribed Yes Yes Yes Has compression in place as prescribed N/A N/A N/A Has offloadiing in place as prescribed N/A Yes N/A Experienced any changes in pain level or No No No management Left Footwear Regular Shoe Regular Shoe Right Footwear Regular Shoe Regular Shoe Pain Scale: 0-10 Numeric Is Patient Pain Free? Yes Yes Yes WC - Nurse 1 - General Ulcer Measurement Start: 04/12/22 09:27 Freq: Status: Active Protocol: Activity Type Activity Date Activity User E-sign Co-sign Detail Recorded Client Recorded Date Recorded By Document 04/12/22 09:28 AK [id number] 04/12/22 09:33 AK Document 04/19/22 08:50 DL [id number] 04/19/22 08:56 DL Document 04/26/22 09:08 KR [id number] 04/26/22 09:11 KR 04/12/22 04/19/22 04/26/22 09:28 08:50 09:08 Wound Center Nurse 1 #11 R Groin -Combined with other wound No -Current Size (cm) - Length 1.5 1.6 1.1 -Current Size (cm) - Width 0.2 0.4 0.2 -Current Size (cm) - Depth 0.3 0.3 0.1 -Total Square Cm 0.30 0.64 0.22 -Photo Taken No Yes -Tunneling No -Undermining/Tunneling No -Circular Undermining No -Change in Wound Grade/Stage No -Exudate Amt Medium Small Small -Exudate Type Serosanguineous Serosanguineous Serosanguineous -Wound Margin Distinct, Thickened Distinct, Outline Outline Attached Attached -Granulation Amt None Present (0 Small (1-33%) Small (1-33%) %) -Granulation Quality N/A [place] -Slough/Fibrin No -Necrosis Amt None Present (0 Small (1-33%) Small (1-33%) %) -Necrotic Tissue Type Adherent Slough Adherent Slough Adherent Slough -Structure Exposed N/A N/A -Texture (Blanche-wound Skin Appearance) No Abnormality, Scarring Assessed, Assessed Scarring -Moisture (Blnache-wound Skin Appearance) No Abnormality, No Abnormality No Abnormality, Assessed Assessed -Color (Blanche-wound Skin Appearance) No Abnormality, No Abnormality No Abnormality, Assessed Assessed -Temperature (Blanche-wound Skin No Abnormality No Abnormality No Abnormality Appearance) (Pt Warm) (Pt Warm) (Pt Warm) -Tenderness on Palpation (Blanche-wound No No No Skin Appearance) -Ulcer Cleansing Rinsed/ Rinsed/ Rinsed/ Irrigated with Irrigated with Irrigated with Saline Saline Saline -Foul Odor after Cleansing No No No -Anesthetic Used 4% Lidocaine 4% Lidocaine 4% Lidocaine Solution Solution Solution WC - Nurse 2 - General Ulcer CM Notes Start: 04/12/22 09:27 Freq: Status: Active Protocol: Activity Type Activity Date Activity User E-sign Co-sign Detail Recorded Client Recorded Date Recorded By Document 04/12/22 11:19 PL [id number] 04/12/22 11:20 PL Document 04/19/22 12:02 [id number] 04/19/22 12:03 PL 04/12/22 04/19/22 11:19 12:02 Wound Center Nurse 2 #11 R Groin -Time 09:45 09:09 -Correct Patient Yes Yes -Correct Side, Site, Position Yes Yes -Correct Procedure Yes Yes -Procedure Performed Yes Yes -Type of Procedure Debridement Debridement -Clinical Debridement Subcutaneous Subcutaneous -Tissue Removed Subcutaneous Subcutaneous -Post Debridement (cm) - Length 1.5 1.6 -Post Debridement (cm) - Width 0.2 0.4 -Post Debridement (cm) - Depth 0.3 0.3 -Total Square (Post) (cm) 0.30 0.64 -Area of Debridement (cm) - Length 1.5 1.6 -Area of Debridement (cm) - Width 0.2 0.4 -Total Square (Area) (cm) 0.30 0.64 -Tunneling No No -Undermining/Tunneling No No -Circular Undermining No No -Wound/Ulcer Outcome Not Healed Not Healed -Ulcer Cleansing Rinsed/ Rinsed/ Irrigated with Irrigated with Saline Saline -Foul Odor after Cleansing No No -Bioengineered Tissue No No -Bleeding Controlled with Pressure Pressure -Treatment Response Procedure Procedure Tolerated Well Tolerated Well -Debridement - Subq, 1st 20sq cm Yes Yes Pain Scale: 0-10 Numeric Is Patient Pain Free? Yes Yes - Nurse 3 - General Ulcer D/C NN Start: 04/12/22 09:27 Freq: Status: Active Protocol: Activity Type Activity Date Activity User E-sign Co-sign Detail Recorded Client Recorded Date Recorded By Document 04/12/22 11:15 AK [id number] 04/12/22 11:18 AK Document 04/19/22 11:00 DL [id number] 04/19/22 11:02 DL 04/12/22 04/19/22 11:15 11:00 Wound Care Nurse 3 #11 R Groin -Ulcer Cleansing Rinsed/ Rinsed/ Irrigated with Irrigated with Saline Saline -Foul Odor after Cleansing No No -Negative Pressure Wound Therapy N/A -Other Dressing own santyl and Santyl own dressings and tape -Primary Dressing Covered/Secured with Dry Gauze, Secured with Tape Treatment Response Procedure Tolerated Well Pain Scale: 0-10 Numeric Is Patient Pain Free? Yes Yes - Visit Discharge Discharge Condition Stable Stable Ambulatory Status Ambulatory Ambulatory Transportation Private Auto Private Auto Medication Reconcilliation completed & Yes provided to patient/care provider Clinical Summary of Care Provided Yes Notes: Pt applied her own dressing today. Assessment/Plan Assessment/Plan (1) Soft tissue radionecrosis: CODE(S): L59.8 - Other specified disorders of the skin and subcutaneous tissue related to radiation; Y84.2 - Radiological procedure and radiotherapy as the cause of abnormal reaction of the patient, or of later complication, without mention of misadventure at the time of the procedure (2) Radiation injury: CODE(S): T66.XXXA - Radiation sickness, unspecified, initial encounter QUALIFIERS: Encounter type: subsequent encounter Qualified Code(s): T66.XXXD - Radiation sickness, unspecified, subsequent encounter (3) soft tissue radiation injury: (4) History of melanoma: CODE(S): Z85.820 - Personal history of malignant melanoma of skin (5) Ulcer of right groin: CODE(S): L98.499 - Non-pressure chronic ulcer of skin of other sites with unspecified severity QUALIFIERS: Non-pressure ulcer stage: with fat layer exposed Qualified Code(s): L98.492 - Non-pressure chronic ulcer of skin of other sites with fat layer exposed (6) Amputee, above knee: CODE(S): Z89.619 - Acquired absence of unspecified leg above knee (7) Overweight (BMI 25.0-29.9): CODE(S): E66.3 - Overweight (8) History of uterine cancer: CODE(S): Z85.42 - Personal history of malignant neoplasm of other parts of uterus (9) Hyperlipidemia: CODE(S): E78.5 - Hyperlipidemia, unspecified (10) GERD (gastroesophageal reflux disease): CODE(S): K21.9 - Gastro-esophageal reflux disease without esophagitis (11) Obesity (BMI 30.0-34.9): CODE(S): E66.9 - Obesity, unspecified PLAN: Plan This is a 67-year-old female with a complex past medical history, much of which has been detailed above. She presented with a recurrence of her right groin ulceration, secondary to soft tissue radiation injury. The patient has been treated at our facility numerous times in the past. Her current ulceration recurred approximately 2-3 weeks prior to her presentation. We are to continue the use of collagenase Santyl topically. She has been instructed to apply topically on a daily basis. Nutritional optimization has been recommended. Given the nature of the patient's wound, soft tissue radiation injury secondary to prior courses of radiation, the patient would appear to be a candidate for hyperbaric oxygen therapy. This matter has been discussed with patient in detail. She is fully familiar with HBO treatments, having undergone hyperbaric oxygen therapy only several years ago in 2018. Review of the patient's medical history indicates that the patient tolerated hyperbaric oxygen therapy well, without complications. She derived significant benefit from prior HBO treatments. Her health and medical history has not changed in any significant manner since that time, so there appear to be no contraindications to hyperbaric oxygen therapy at this time. The patient has recently undergone routine laboratory studies, which are normal. Both a CBC and a comprehensive metabolic profile revealed no significant abnormalities. A chest x-ray reveals borderline cardiomegaly without evidence of heart failure. There is no evidence of pneumonia, pneumonitis, bronchitis, or pulmonary mass lesions. Minimal linear fibrotic changes are noted. An EKG reveals sinus rhythm with occasional premature ventricular complexes. It is likely that this is a benign finding, and not a contraindication to hyperbaric oxygen therapy. However, we are to obtain clearance from a cardiac standpoint for hyperbaric oxygen therapy, either from the patient's primary care physician or by way of a Cardiology consult. Efforts will be made to preauthorize hyperbaric oxygen treatments, which will be initiated upon pre-approval. We will continue to await pre-approval from the patient's insurance company. The patient is to follow-up in 1 week for reevaluation. Swab cultures were recently obtained for both aerobic and anaerobic bacterial growth. The culture results were positive for Staph aureus, Corynebacterium stratum, and Eggerthia catenaformis. Based upon sensitivity results, the patient was started on Augmentin 875 mg p.o. twice daily for total of 10 days, which has been completed. The patient is to follow-up in 1 week for reevaluation. Total time: 29 minutes
[2022-05-03 09:28] VITALS: BP 125/84; PULSE 80; RESP 18; TEMP 36.6; BMI 29.8
--- NOTE | 2022-05-03 10:50 | HP.PCM_ITS ---
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 The patient was diagnosed with melanoma of the right calf in the 1969's. 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 The patient underwent excision of her melanoma with lymphadenectomy in the right groin. She also underwent lengthy radiation treatments at the [facility] in [place], [place]. Melanoma recurred, and the patient was subsequently treated with monoclonal antibodies in 1984. 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 Treatment included local ulcer care and hyperbaric oxygen therapy. She underwent a total of nearly 90 treatments of hyperbaric oxygen therapy. It is known that she tolerated the therapies well, and derived significant benefit. 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 She has also undergone several more sessions of hyperbaric oxygen therapy. She also received a series of 10 EpiFix allografts in the course of previous treatment. Each of the patient's prior courses of treatment in our facility have been protracted, with difficulties encountered in achieving complete healing. Her most recent course of treatment ended with successful healing and discharge in February 2021. The patient presented at this time with a recurrence of her right groin ulceration, again thought to be secondary to soft tissue radiation injury. The ulceration recurred spontaneously approximately 2-3 weeks prior to her presentation. The patient indicates that her health history has not changed since she was last treated in our facility. [facility] Medical History Bilateral cataracts Cancer Hemorrhoids Knee pain Radiation injury Home Medications famotidine 20 mg tablet 20 mg PO 06/20/17 [History Last Taken Unknown] pravastatin 20 mg tablet 20 mg PO DAILY 06/20/17 [History Last Taken Unknown] famotidine 40 mg tablet PO 90 days ##90 12/26/17 [History Last Taken Unknown] pravastatin 20 mg tablet PO 90 days ##90 12/26/17 [History Last Taken Unknown] Allergy/AdvReac Type Severity Reaction Status Date / Time No Known Allergies Allergy Verified 02/15/22 09:08 Family History Other Heart disease Hypertension Surgical History Hx of AKA (above knee amputation) Social History Smoking Status: Former smoker alcohol intake: current alcohol intake frequency: holidays/special occasions only Vital Signs Vital Signs Vital Signs: 05/03/22 09:28 Temperature 98 F Temperature Source Temporal Pulse Rate 80 Respiratory Rate 18 Blood Pressure 125/84 H Blood Pressure Mean 97 Blood Pressure Source Monitor Blood Pressure Position Semi-Fowlers Blood Pressure Location Left Arm Weight Weight: 196 lb 1.696 oz Body Mass Index (BMI) 29.8 Physical Exam Const alert, oriented x3, no apparent distress and well nourished General Appearance: cooperative, comfortable, well kempt and well developed Orientation / Consciousness: awake, oriented to person, oriented to place and oriented to time Exam Limitations: no limitations HEENT normocephalic and head/scalp atraumatic Head and Scalp: normal to inspection, normocephalic and atraumatic External Ear: external ears normal Eyes PERRL and EOMs intact bilaterally General Eye: normal appearance of both eyes Resp normal respiratory effort, normal air movement, no retractions and no use of accessory muscles Effort and Inspection: able to speak in complete sentences Extremity no calf tenderness Extremity Narrative: A well-healed right above-knee amputation stump is noted. General Extremity: Negative for clubbing or cyanosis Skin Wound Narrative: A small ulceration is noted in the patient's right groin, the site of previous ulceration when last treated at our facility. The base of the ulceration demonstrates some fibrotic and nonviable material. There is a moderate amount of bioburden. Dimensions are documented elsewhere. There has been little change in recent weeks. A well-healed right above-knee amputation stump is noted. Neuro oriented x3, CN's II-XII intact bilaterally, moves all extremities and no focal motor deficits Sensorium / Orientation: awake, alert, oriented to person, oriented to place and oriented to time Psych Appearance: grossly normal and appropriate Attitude: calm Activity / Motor Behavior: appropriate eye contact Speech: normal speech Mood & Affect: euthymic mood Thought Process: normal thought process Thought Content: normal thought content Attention / Concentration: attention grossly intact Debridement Note Debridement Note Wound debrided: Right groin Laterality: Right Type of Debridement: Excisional debridement Anesthesia Used: 5% Lidocaine Gel Depth: Down to and including healthy tissue and in the subcutaneous layer Percentage of wound debrided: 100 Instrument Used: 3mm curette Tissue Removed: Bioburden and fibrous, nonviable tissue Severity: Fat Layer Exposed Amount of bleeding with debridement: Mild Bleeding Controlled with: Compression and gauze Patient tolerated procedure: Patient tolerated procedure well Post-Debridement Measurements and Additional Note: Post-Debridement Measurements/Treatment - Nurse 1 - General Ulcer Assessment Start: 04/12/22 09:27 Freq: Status: Active Protocol: MICHAEL Activity Type Activity Date Activity User E-sign Co-sign Detail Recorded Client Recorded Date Recorded By Document 04/12/22 09:28 AK [id number] 04/12/22 09:33 AK Document 04/19/22 08:50 DL [id number] 04/19/22 08:56 DL Document 04/26/22 09:08 KR [id number] 04/26/22 09:11 KR Document 05/03/22 09:28 RB [id number] 05/03/22 09:30 RB 04/12/22 04/19/22 04/26/22 09:28 08:50 09:08 - Today's Visit Information Type of service Follow-up Visit Follow-up Visit Follow-up 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/FIRE BOAT ENGINEER (Physician/FIRE BOAT ENGINEER (Physician/FIRE BOAT ENGINEER ) ) ) Arrival Mode Ambulatory Ambulatory Ambulatory Transfer Assistance None Patient Identification Verified (Name & Yes Yes Yes ) Patient Requires Transmission-Based No No Precautions Safety Precautions NA Height and Weight Body Mass Index (BMI) 29.8 29.8 29.8 BMI Classification Overweight Overweight Overweight Vital Signs Temperature (97.8 F-99.1 F) 96.2 F L 97.4 F L 96.3 F L Temperature Source Temporal Temporal Temporal Pulse Rate (60-100) 90 90 91 Pulse Location Monitor Monitor Monitor Respiratory Rate (12-18) 18 Respiratory rate source Observation Blood Pressure (90/60-120/80) 134/83 H 150/92 H 147/80 H Blood Pressure Mean 100 111 102 Source Monitor Monitor Monitor Position Semi-Fowlers Blood Pressure Location Right Arm History Since Last Visit- (Skip if this is Patient's initial visit) Have you changed medications since your No No No last visit? Any new allergies or adverse reactions No No No Had a fall/change in ADL's that may No No No increase risk of falls Signs or symptoms of abuse and/or No No No neglect since last visit Have you been in the hospital since your No No No last visit? Has dressing in place as prescribed Yes Yes Yes Has compression in place as prescribed N/A N/A N/A Has offloadiing in place as prescribed N/A Yes N/A Experienced any changes in pain level or No No No management Left Footwear Regular Shoe Regular Shoe Right Footwear Regular Shoe Regular Shoe Pain Scale: 0-10 Numeric Is Patient Pain Free? Yes Yes Yes 05/03/22 09:28 WC - Today's Visit Information Type of service Follow-up 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/FIRE BOAT ENGINEER ) Arrival Mode Ambulatory Transfer Assistance None Patient Identification Verified (Name & Yes ) Patient Requires Transmission-Based No Precautions Safety Precautions Height and Weight Body Mass Index (BMI) 29.8 BMI Classification Overweight Vital Signs Temperature (97.8 F-99.1 F) 98 F Temperature Source Temporal Pulse Rate (60-100) 80 Pulse Location Monitor Respiratory Rate (12-18) 18 Respiratory rate source Observation Blood Pressure (90/60-120/80) 125/84 H Blood Pressure Mean 97 Source Monitor Position Semi-Fowlers Blood Pressure Location Left Arm History Since Last Visit- (Skip if this is Patient's initial visit) Have you changed medications since your No last visit? Any new allergies or adverse reactions No Had a fall/change in ADL's that may No increase risk of falls Signs or symptoms of abuse and/or No neglect since last visit Have you been in the hospital since your No last visit? Has dressing in place as prescribed Yes Has compression in place as prescribed No Has offloadiing in place as prescribed No Experienced any changes in pain level or No management Left Footwear Right Footwear Pain Scale: 0-10 Numeric Is Patient Pain Free? Yes WC - Nurse 1 - General Ulcer Measurement Start: 04/12/22 09:27 Freq: Status: Active Protocol: Activity Type Activity Date Activity User E-sign Co-sign Detail Recorded Client Recorded Date Recorded By Document 04/12/22 09:28 AK [id number] 04/12/22 09:33 AK Document 04/19/22 08:50 DL [id number] 04/19/22 08:56 DL Document 04/26/22 09:08 KR [id number] 04/26/22 09:11 KR Document 05/03/22 09:28 RB [id number] 05/03/22 09:30 RB 04/12/22 04/19/22 04/26/22 09:28 08:50 09:08 Wound Center Nurse 1 #11 R Groin -Combined with other wound No -Current Size (cm) - Length 1.5 1.6 1.1 -Current Size (cm) - Width 0.2 0.4 0.2 -Current Size (cm) - Depth 0.3 0.3 0.1 -Total Square Cm 0.30 0.64 0.22 -Photo Taken No Yes -Tunneling No -Undermining/Tunneling No -Circular Undermining No -Change in Wound Grade/Stage No -Exudate Amt Medium Small Small -Exudate Type Serosanguineous Serosanguineous Serosanguineous -Wound Margin Distinct, Thickened Distinct, Outline Outline Attached Attached -Granulation Amt None Present (0 Small (1-33%) Small (1-33%) %) -Granulation Quality N/A [place] -Slough/Fibrin No -Necrosis Amt None Present (0 Small (1-33%) Small (1-33%) %) -Necrotic Tissue Type Adherent Slough Adherent Slough Adherent Slough -Structure Exposed N/A N/A -Texture (Blanche-wound Skin Appearance) No Abnormality, Scarring Assessed, Assessed Scarring -Moisture (Blanche-wound Skin Appearance) No Abnormality, No Abnormality No Abnormality, Assessed Assessed -Color (Blanche-wound Skin Appearance) No Abnormality, No Abnormality No Abnormality, Assessed Assessed -Temperature (Blanche-wound Skin No Abnormality No Abnormality No Abnormality Appearance) (Pt Warm) (Pt Warm) (Pt Warm) -Tenderness on Palpation (Blanche-wound No No No Skin Appearance) -Ulcer Cleansing Rinsed/ Rinsed/ Rinsed/ Irrigated with Irrigated with Irrigated with Saline Saline Saline -Foul Odor after Cleansing No No No -Anesthetic Used 4% Lidocaine 4% Lidocaine 4% Lidocaine Solution Solution Solution 05/03/22 09:28 Wound Center Nurse 1 #11 R Groin -Combined with other wound No -Current Size (cm) - Length 1.9 -Current Size (cm) - Width 0.3 -Current Size (cm) - Depth 0.4 -Total Square Cm 0.57 -Photo Taken -Tunneling No -Undermining/Tunneling No -Circular Undermining No -Change in Wound Grade/Stage -Exudate Amt Medium -Exudate Type Serosanguineous -Wound Margin Thickened & Rolled Under -Granulation Amt Medium (34-66%) -Granulation Quality [place] -Slough/Fibrin Yes -Necrosis Amt Medium (34-66%) -Necrotic Tissue Type Adherent Slough -Structure Exposed N/A -Texture (Blanche-wound Skin Appearance) Scarring -Moisture (Blanche-wound Skin Appearance) Assessed -Color (Blanche-wound Skin Appearance) Assessed -Temperature (Blanche-wound Skin No Abnormality Appearance) (Pt Warm) -Tenderness on Palpation (Blanche-wound No Skin Appearance) -Ulcer Cleansing Wound Cleanser -Foul Odor after Cleansing No -Anesthetic Used 4% Lidocaine Solution WC - Nurse 2 - General Ulcer CM Notes Start: 04/12/22 09:27 Freq: Status: Active Protocol: Activity Type Activity Date Activity User E-sign Co-sign Detail Recorded Client Recorded Date Recorded By Document 04/12/22 11:19 [id number] 04/12/22 11:20 PL Document 04/19/22 12:02 PL [id number] 04/19/22 12:03 PL Document 04/26/22 11:05 PL [id number] 04/26/22 11:05 PL 04/12/22 04/19/22 04/26/22 11:19 12:02 11:05 Wound Center Nurse 2 #11 R Groin -Time 09:45 09:09 09:38 -Correct Patient Yes Yes Yes -Correct Side, Site, Position Yes Yes Yes -Correct Procedure Yes Yes Yes -Procedure Performed Yes Yes Yes -Type of Procedure Debridement Debridement Debridement -Clinical Debridement Subcutaneous Subcutaneous Subcutaneous -Tissue Removed Subcutaneous Subcutaneous Subcutaneous -Post Debridement (cm) - Length 1.5 1.6 1.1 -Post Debridement (cm) - Width 0.2 0.4 0.2 -Post Debridement (cm) - Depth 0.3 0.3 0.1 -Total Square (Post) (cm) 0.30 0.64 0.22 -Area of Debridement (cm) - Length 1.5 1.6 1.1 -Area of Debridement (cm) - Width 0.2 0.4 0.2 -Total Square (Area) (cm) 0.30 0.64 0.22 -Tunneling No No No -Undermining/Tunneling No No No -Circular Undermining No No No -Wound/Ulcer Outcome Not Healed Not Healed Not Healed -Ulcer Cleansing Rinsed/ Rinsed/ Rinsed/ Irrigated with Irrigated with Irrigated with Saline Saline Saline -Foul Odor after Cleansing No No No -Bioengineered Tissue No No No -Bleeding Controlled with Pressure Pressure Pressure -Treatment Response Procedure Procedure Procedure Tolerated Well Tolerated Well Tolerated Well -Debridement - Subq, 1st 20sq cm Yes Yes Yes Pain Scale: 0-10 Numeric Is Patient Pain Free? Yes Yes Yes WC - Nurse 3 - General Ulcer D/C NN Start: 04/12/22 09:27 Freq: Status: Active Protocol: Activity Type Activity Date Activity User E-sign Co-sign Detail Recorded Client Recorded Date Recorded By Document 04/12/22 11:15 AK [id number] 04/12/22 11:18 AK Document 04/19/22 11:00 DL [id number] 04/19/22 11:02 DL Document 04/26/22 11:05 DL [id number] 04/26/22 11:08 DL Document 05/03/22 09:41 RB [id number] 05/03/22 09:41 RB 04/12/22 04/19/22 04/26/22 11:15 11:00 11:05 Wound Care Nurse 3 #11 R Groin -Ulcer Cleansing Rinsed/ Rinsed/ Rinsed/ Irrigated with Irrigated with Irrigated with Saline Saline Saline -Foul Odor after Cleansing No No No -Negative Pressure Wound Therapy N/A -Other Dressing own santyl and Santyl santyl own dressings and tape -Primary Dressing Covered/Secured with Dry Gauze, Dry Gauze, Secured with Secured with Tape Tape Treatment Response Procedure Procedure Tolerated Well Tolerated Well Pain Scale: 0-10 Numeric Is Patient Pain Free? Yes Yes Yes WC - Visit Discharge Discharge Condition Stable Stable Stable Ambulatory Status Ambulatory Ambulatory Ambulatory Transportation Private Auto Private Auto Private Auto Medication Reconcilliation completed & Yes provided to patient/care provider Clinical Summary of Care Provided Yes Notes: Pt applied her Pt applied own own dressing dressing today today. in clinic. 05/03/22 09:41 Wound Care Nurse 3 #11 R Groin -Ulcer Cleansing Rinsed/ Irrigated with Saline -Foul Odor after Cleansing -Negative Pressure Wound Therapy -Other Dressing santyl , gauze -Primary Dressing Covered/Secured with Secured with Tape Treatment Response Procedure Tolerated Well Pain Scale: 0-10 Numeric Is Patient Pain Free? Yes WC - Visit Discharge Discharge Condition Stable Ambulatory Status Ambulatory Transportation Private Auto Medication Reconcilliation completed & No provided to patient/care provider Clinical Summary of Care Provided Yes Notes: Assessment/Plan Assessment/Plan (1) Soft tissue radionecrosis: CODE(S): L59.8 - Other specified disorders of the skin and subcutaneous tissue related to radiation; Y84.2 - Radiological procedure and radiotherapy as the cause of abnormal reaction of the patient, or of later complication, without mention of misadventure at the time of the procedure (2) Radiation injury: CODE(S): T66.XXXA - Radiation sickness, unspecified, initial encounter QUALIFIERS: Encounter type: subsequent encounter Qualified Code(s): T66.XXXD - Radiation sickness, unspecified, subsequent encounter (3) soft tissue radiation injury: (4) History of melanoma: CODE(S): Z85.820 - Personal history of malignant melanoma of skin (5) Ulcer of right groin: CODE(S): L98.499 - Non-pressure chronic ulcer of skin of other sites with unspecified severity QUALIFIERS: Non-pressure ulcer stage: with fat layer exposed Qualified Code(s): L98.492 - Non-pressure chronic ulcer of skin of other sites with fat layer exposed (6) Amputee, above knee: CODE(S): Z89.619 - Acquired absence of unspecified leg above knee (7) Overweight (BMI 25.0-29.9): CODE(S): E66.3 - Overweight (8) History of uterine cancer: CODE(S): Z85.42 - Personal history of malignant neoplasm of other parts of uterus (9) Hyperlipidemia: CODE(S): E78.5 - Hyperlipidemia, unspecified (10) GERD (gastroesophageal reflux disease): CODE(S): K21.9 - Gastro-esophageal reflux disease without esophagitis (11) Obesity (BMI 30.0-34.9): CODE(S): E66.9 - Obesity, unspecified PLAN: Plan This is a 67-year-old female with a complex past medical history, much of which has been detailed above. She presented with a recurrence of her right groin ulceration, secondary to soft tissue radiation injury. The patient has been treated at our facility numerous times in the past. Her current ulceration recurred approximately 2-3 weeks prior to her presentation. We are to continue the use of collagenase Santyl topically. She has been instructed to apply topically on a daily basis. Nutritional optimization has been recommended. Given the nature of the patient's wound, soft tissue radiation injury secondary to prior courses of radiation, the patient would appear to be a candidate for hyperbaric oxygen therapy. This matter has been discussed with patient in detail. She is fully familiar with HBO treatments, having undergone hyperbaric oxygen therapy only several years ago in 2018. Review of the patient's medical history indicates that the patient tolerated hyperbaric oxygen therapy well, without complications. She derived significant benefit from prior HBO treatments. Her health and medical history has not changed in any significant manner since that time, so there appear to be no contraindications to hyperbaric oxygen therapy at this time. The patient has recently undergone routine laboratory studies, which are normal. Both a CBC and a comprehensive metabolic profile revealed no significant abnormalities. A chest x-ray reveals borderline cardiomegaly without evidence of heart failure. There is no evidence of pneumonia, pneumonitis, bronchitis, or pulmonary mass lesions. Minimal linear fibrotic changes are noted. An EKG reveals sinus rhythm with occasional premature ventricular complexes. The patient has been cleared from a cardiac standpoint by her primary care physician to proceed with hyperbaric oxygen therapy. Hyperbaric oxygen therapy has been preauthorized and approved by the patient's insurance company. HBO treatments are to be initiated without delay. The patient has been fully informed of the indications and risks, and has indicated her desire to proceed. She is well acquainted with the procedure and process, having undergone hyperbaric oxygen therapy in the past. The patient is to follow-up in 1 week for reevaluation. Swab cultures were recently obtained for both aerobic and anaerobic bacterial growth. The culture results were positive for Staph aureus, Corynebacterium stratum, and Eggerthia catenaformis. Based upon sensitivity results, the patient was started on Augmentin 875 mg p.o. twice daily for total of 10 days, which has been completed. Total time: 28 minutes
--- NOTE | 2022-05-09 15:00 | HBO.PN.PCM_ITS ---
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 The patient was diagnosed with melanoma of the right calf in the 1969's. 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 The patient underwent excision of her melanoma with lymphadenectomy in the right groin. She also underwent lengthy radiation treatments at the [facility] in [place], [place]. Melanoma recurred, and the patient was subsequently treated with monoclonal antibodies in 1984. 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 Treatment included local ulcer care and hyperbaric oxygen therapy. She underwent a total of nearly 90 treatments of hyperbaric oxygen therapy. It is known that she tolerated the therapies well, and derived significant benefit. 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 She has also undergone several more sessions of hyperbaric oxygen therapy. She also received a series of 10 EpiFix allografts in the course of previous treatment. Each of the patient's prior courses of treatment in our facility have been protracted, with difficulties encountered in achieving complete healing. Her most recent course of treatment ended with successful healing and discharge in February 2021. The patient presented at this time with a recurrence of her right groin ulceration, again thought to be secondary to soft tissue radiation injury. The ulceration recurred spontaneously approximately 2-3 weeks prior to her presentation. The patient indicates that her health history has not changed since she was last treated in our facility. She has been approved for hyperbaric oxygen therapy treatment for her ulcer in her right groin caused by radionecrosis. Subjective Subjective Today is the 1st treatment of hyperbaric oxygen therapy. The patient is scheduled for 30 treatments total. Tolerance of hyperbaric oxygen therapy: Hyperbaric oxygen treatment was administered as per the facility's protocol.? Hyperbaric oxygen therapy was administered at 2.0 CHHAYA in 100% oxygen for 90 minutes without air breaks.? The patient tolerated hyperbaric oxygen well, without complications or complaints. Upon emergence of the hyperbaric chamber, the patient's vital signs remained stable.? She was discharged in good condition. Objective Data Objective Data Vital Signs: Vital Signs Temp Pulse Resp BP 98 F 80 18 125/84 H 05/03/22 09:28 05/03/22 09:28 05/03/22 09:28 05/03/22 09:28 Weight: 196 lb 1.696 oz Body Mass Index (BMI) 29.8 Exam Physical Exam Const alert, oriented x3 and no apparent distress General Appearance: cooperative HEENT normocephalic and TM's normal bilaterally Eyes PERRL Resp normal respiratory effort and clear to auscultation bilaterally Effort and Inspection: able to speak in complete sentences Cardio regular rate and regular rhythm Psych affect normal Charges/Coding Wound Center CF Procedures HBO Supervision: [id number] Hyperbaric Oxygen; supervision Assessment/Plan Assessment/Plan (1) Soft tissue radionecrosis: CODE(S): L59.8 - Other specified disorders of the skin and subcutaneous tissue related to radiation; Y84.2 - Radiological procedure and radiotherapy as the cause of abnormal reaction of the patient, or of later complication, without mention of misadventure at the time of the procedure (2) Radiation injury: CODE(S): T66.XXXA - Radiation sickness, unspecified, initial encounter QUALIFIERS: Encounter type: subsequent encounter Qualified Code(s): T66.XXXD - Radiation sickness, unspecified, subsequent encounter (3) soft tissue radiation injury: (4) History of melanoma: CODE(S): Z85.820 - Personal history of malignant melanoma of skin (5) Ulcer of right groin: CODE(S): L98.499 - Non-pressure chronic ulcer of skin of other sites with unspecified severity QUALIFIERS: Non-pressure ulcer stage: with fat layer exposed Qualified Code(s): L98.492 - Non-pressure chronic ulcer of skin of other sites with fat layer exposed (6) Amputee, above knee: CODE(S): Z89.619 - Acquired absence of unspecified leg above knee (7) History of uterine cancer: CODE(S): Z85.42 - Personal history of malignant neoplasm of other parts of uterus (8) Hyperlipidemia: CODE(S): E78.5 - Hyperlipidemia, unspecified PLAN: Plan The patient appears to be tolerating hyperbaric oxygen therapy well. She will continue as per her medical treatment plan.
[2022-05-09 15:42] VITALS: BP 133/80; BP 138/70; PULSE 72; PULSE 84; RESP 18; RESP 20; TEMP 35.9
== END 2022-05-09 23:59 | disposition home or self-care (01) ==
LOC: WC 13:00
PROVIDERS: PCP Family Medicine; Visit Provider Surgery
DX: L59.8 Other specified disorders of the skin and subcutaneous tissue related to radiation (principal); L98.492 Non-pressure chronic ulcer of skin of other sites with fat layer exposed; K21.9 Gastro-esophageal reflux disease without esophagitis; E78.5 Hyperlipidemia, unspecified; E66.9 Obesity, unspecified; Z87.891 Personal history of nicotine dependence; Y84.2 Radiological procedure and radiotherapy as the cause of abnormal reaction of the patient, or of later complication, without mention of misadventure at the time of the procedure; Z85.820 Personal history of malignant melanoma of skin; Z86.14 Personal history of Methicillin resistant Staphylococcus aureus infection; Z79.899 Other long term (current) drug therapy; T66.XXXA Radiation sickness, unspecified, initial encounter; Z68.29 Body mass index [BMI] 29.0-29.9, adult
CPT/HCPCS: 11042; 99183; G0277

== ENCOUNTER 2022-06-08 10:30 | Outpatient (RCR) | payer MEDICARE, OTHER, SELFPAY ==
[2022-05-10 00:17] VITALS: BP 133/80; PULSE 84; RESP 18; TEMP 35.9; BMI 29.8
[2022-05-10 11:22] VITALS: BP 138/78; PULSE 85; RESP 18; TEMP 36.6; BMI 29.8
--- NOTE | 2022-05-10 13:43 | HP.PCM_ITS ---
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 The patient was diagnosed with melanoma of the right calf in the 1969's. 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 The patient underwent excision of her melanoma with lymphadenectomy in the right groin. She also underwent lengthy radiation treatments at the [facility] in [place], [place]. Melanoma recurred, and the patient was subsequently treated with monoclonal antibodies in 1984. 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 Treatment included local ulcer care and hyperbaric oxygen therapy. She underwent a total of nearly 90 treatments of hyperbaric oxygen therapy. It is known that she tolerated the therapies well, and derived significant benefit. 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 She has also undergone several more sessions of hyperbaric oxygen therapy. She also received a series of 10 EpiFix allografts in the course of previous treatment. Each of the patient's prior courses of treatment in our facility have been protracted, with difficulties encountered in achieving complete healing. Her most recent course of treatment ended with successful healing and discharge in February 2021. The patient presented at this time with a recurrence of her right groin ulceration, again thought to be secondary to soft tissue radiation injury. The ulceration recurred spontaneously approximately 2-3 weeks prior to her presentation. The patient indicates that her health history has not changed since she was last treated in our facility. She has been approved for hyperbaric oxygen therapy treatment for her ulcer in her right groin caused by radionecrosis. [facility] Medical History Bilateral cataracts Cancer Hemorrhoids Knee pain Radiation injury Home Medications famotidine 20 mg tablet 20 mg PO 06/20/17 [History Last Taken Unknown] pravastatin 20 mg tablet 20 mg PO DAILY 06/20/17 [History Last Taken Unknown] famotidine 40 mg tablet PO 90 days ##90 12/26/17 [History Last Taken Unknown] pravastatin 20 mg tablet PO 90 days ##90 12/26/17 [History Last Taken Unknown] Allergy/AdvReac Type Severity Reaction Status Date / Time No Known Allergies Allergy Verified 02/15/22 09:08 Family History Other Heart disease Hypertension Surgical History Hx of AKA (above knee amputation) Social History Smoking Status: Former smoker alcohol intake: current alcohol intake frequency: holidays/special occasions only Vital Signs Vital Signs Vital Signs: 05/10/22 11:22 05/10/22 00:17 Temperature 97.8 F 96.6 F L Temperature Source Temporal Pulse Rate 85 84 Respiratory Rate 18 18 Blood Pressure 138/78 H 133/80 H Blood Pressure Mean 98 97 Blood Pressure Location Left Arm Weight Weight: 196 lb 1.696 oz Body Mass Index (BMI) 29.8 Physical Exam Const alert, oriented x3 and no apparent distress General Appearance: cooperative, comfortable, well kempt and well developed Orientation / Consciousness: awake, oriented to person, oriented to place and oriented to time HEENT normocephalic, head/scalp atraumatic, hearing grossly normal bilaterally and TM's normal bilaterally Head and Scalp: normal to inspection Eyes PERRL, EOMs intact bilaterally and conjunctivae normal General Eye: normal appearance of both eyes Resp normal respiratory effort, normal air movement and no retractions Effort and Inspection: able to speak in complete sentences and symmetric chest movement Skin Wound Narrative: An ulceration is noted in the right groin. Dimensions are documented elsewhere. There is no sign of infection or cellulitis. There is a moderate amount of bioburden. There has been no significant change in the appearance of the ulceration since the patient's prior visit. A well-healed right above-knee amputation stump is noted. Neuro oriented x3, CN's II-XII intact bilaterally, moves all extremities and no focal motor deficits Psych affect normal Debridement Note Debridement Note Wound debrided: Right groin Laterality: Right Type of Debridement: Excisional debridement Anesthesia Used: 5% Lidocaine Gel Depth: Down to and including healthy tissue and in the subcutaneous layer Percentage of wound debrided: 100 Instrument Used: 3mm curette Tissue Removed: Bioburden and fibrous, nonviable tissue Severity: Fat Layer Exposed Amount of bleeding with debridement: Mild Bleeding Controlled with: Compression and gauze Patient tolerated procedure: Patient tolerated procedure well Post-Debridement Measurements and Additional Note: Post-Debridement Measurements/Treatment KISHA - Nurse 1 - General Ulcer Assessment Start: 05/10/22 11:21 Freq: Status: Active Protocol: MICHAEL Activity Type Activity Date Activity User E-sign Co-sign Detail Recorded Client Recorded Date Recorded By Document 05/10/22 11: DL [id number] 05/10/22 11:27 DL 05/10/22 11:22 KISHA - Today's Visit Information Type of service Follow-up 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/PUBLIC POLICY COORDINATOR ) Arrival Mode Ambulatory Transfer Assistance None Patient Identification Verified (Name & Yes ) Patient Requires Transmission-Based No Precautions Height and Weight Body Mass Index (BMI) 29.8 BMI Classification Overweight Vital Signs Temperature (97.8 F-99.1 F) 97.8 F Temperature Source Temporal Pulse Rate (60-100) 85 Pulse Location Monitor Respiratory Rate (12-18) 18 Respiratory rate source Observation Blood Pressure (90/60-120/80) 138/78 H Blood Pressure Mean 98 History Since Last Visit- (Skip if this is Patient's initial visit) Have you changed medications since your No last visit? Any new allergies or adverse reactions No Had a fall/change in ADL's that may No increase risk of falls Signs or symptoms of abuse and/or No neglect since last visit Have you been in the hospital since your No last visit? Has dressing in place as prescribed Yes Has compression in place as prescribed N/A Has offloadiing in place as prescribed Yes Experienced any changes in pain level or No management Pain Scale: 0-10 Numeric Is Patient Pain Free? Yes KISHA - Nurse 1 - General Ulcer Measurement Start: 05/10/22 11:21 Freq: Status: Active Protocol: Activity Type Activity Date Activity User E-sign Co-sign Detail Recorded Client Recorded Date Recorded By Document 05/10/22 11:22 DL [id number] 05/10/22 11:27 DL 05/10/22 11:22 Wound Center Nurse 1 #11 R Groin -Current Size (cm) - Length 2.2 -Current Size (cm) - Width 0.5 -Current Size (cm) - Depth 0.4 -Total Square Cm 1.10 -Photo Taken Yes -Tunneling Position (O'clock) 6 -Tunneling Distance (cm) 0.2 -Exudate Amt Small -Exudate Type Serosanguineous -Wound Margin Thickened & Rolled Under -Granulation Amt Small (1-33%) -Granulation Quality [place] -Necrosis Amt Small (1-33%) -Necrotic Tissue Type Adherent Slough -Structure Exposed N/A -Texture (Blanche-wound Skin Appearance) Scarring -Moisture (Blanche-wound Skin Appearance) No Abnormality -Color (Blanche-wound Skin Appearance) No Abnormality -Temperature (Blanche-wound Skin No Abnormality Appearance) (Pt Warm) -Tenderness on Palpation (Blanche-wound No Skin Appearance) -Ulcer Cleansing Rinsed/ Irrigated with Saline -Foul Odor after Cleansing No -Anesthetic Used 4% Lidocaine Solution WC - Nurse 2 - General Ulcer CM Notes Start: 05/10/22 11:21 Freq: Status: Active Protocol: Activity Type Activity Date Activity User E-sign Co-sign Detail Recorded Client Recorded Date Recorded By Document 05/10/22 12:13 HITESH [id number] 05/10/22 12:14 HITESH 05/10/22 12:13 Wound Center Nurse 2 -Time 11:41 -Correct Patient Yes -Correct Side, Site, Position Yes -Correct Procedure Yes -Procedure Performed Yes -Type of Procedure Debridement -Clinical Debridement Subcutaneous -Tissue Removed Subcutaneous -Post Debridement (cm) - Length 1.1 -Post Debridement (cm) - Width 0.2 -Post Debridement (cm) - Depth 0.1 -Total Square (Post) (cm) 0.22 -Area of Debridement (cm) - Length 1.1 -Area of Debridement (cm) - Width 0.2 -Total Square (Area) (cm) 0.22 -Tunneling No -Undermining/Tunneling No -Circular Undermining No -Wound/Ulcer Outcome Not Healed -Ulcer Cleansing Rinsed/ Irrigated with Saline -Foul Odor after Cleansing No -Bioengineered Tissue No -Bleeding Controlled with Pressure -Treatment Response Procedure Tolerated Well -Debridement - Subq, 1st 20sq cm Yes Pain Scale: 0-10 Numeric Is Patient Pain Free? Yes WC - Nurse 3 - General Ulcer D/C NN Start: 05/10/22 11:21 Freq: Status: Active Protocol: Activity Type Activity Date Activity User E-sign Co-sign Detail Recorded Client Recorded Date Recorded By Document 05/10/22 11:45 [facility] [id number] 05/10/22 11:46 [facility] 05/10/22 11:45 Wound Care Nurse 3 #11 R Groin -Ulcer Cleansing Rinsed/ Irrigated with Saline -Foul Odor after Cleansing No -Primary Dressing Applied Other -Other Dressing PT DID OWN DRSG W/ SANTLY FROM HOME -Primary Dressing Covered/Secured with Dry Gauze, Secured with Tape Treatment Response Procedure Tolerated Well Pain Scale: 0-10 Numeric Is Patient Pain Free? Yes WC - Visit Discharge Discharge Condition Stable Ambulatory Status Ambulatory Transportation Private Auto Assessment/Plan Assessment/Plan (1) Soft tissue radionecrosis: CODE(S): L59.8 - Other specified disorders of the skin and subcutaneous tissue related to radiation; Y84.2 - Radiological procedure and radiotherapy as the cause of abnormal reaction of the patient, or of later complication, without mention of misadventure at the time of the procedure (2) Radiation injury: CODE(S): T66.XXXA - Radiation sickness, unspecified, initial encounter QUALIFIERS: Encounter type: subsequent encounter Qualified Code(s): T66.XXXD - Radiation sickness, unspecified, subsequent encounter (3) soft tissue radiation injury: (4) History of melanoma: CODE(S): Z85.820 - Personal history of malignant melanoma of skin (5) Ulcer of right groin: CODE(S): L98.499 - Non-pressure chronic ulcer of skin of other sites with unspecified severity QUALIFIERS: Non-pressure ulcer stage: with fat layer exposed Qualified Code(s): L98.492 - Non-pressure chronic ulcer of skin of other sites with fat layer exposed (6) Amputee, above knee: CODE(S): Z89.619 - Acquired absence of unspecified leg above knee (7) History of uterine cancer: CODE(S): Z85.42 - Personal history of malignant neoplasm of other parts of uterus (8) Hyperlipidemia: CODE(S): E78.5 - Hyperlipidemia, unspecified PLAN: Plan This is a 67-year-old female with a extensive history related to melanoma in the remote past affecting her right lower extremity. She subsequently underwent excision of the melanoma with numerous episodes of radiation therapy. She has developed soft tissue radionecrosis with an open ulceration in the right groin. She has been treated for similar ulcerations in the right groin in the past, having undergone HBO therapy on several occasions in the past, ultimately resulting in healing. She is currently undergoing treatment for a similar ulceration. She is currently undergoing HBO therapy, which began yesterday. We are to continue with weekly follow-up visits, and serial debridements. We are to continue the use of collagenase Santyl topically, which will be applied by the patient on a daily basis. Total time: 25 minutes
[2022-05-10 13:44] VITALS: BP 129/68; BP 138/78; PULSE 69; PULSE 85; RESP 18; TEMP 36.9
--- NOTE | 2022-05-10 16:01 | PCM.HBO.PN ---
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 The patient was diagnosed with melanoma of the right calf in the 1969's. 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 The patient underwent excision of her melanoma with lymphadenectomy in the right groin. She also underwent lengthy radiation treatments at the [facility] in [place], [place]. Melanoma recurred, and the patient was subsequently treated with monoclonal antibodies in 1984. 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 Treatment included local ulcer care and hyperbaric oxygen therapy. She underwent a total of nearly 90 treatments of hyperbaric oxygen therapy. It is known that she tolerated the therapies well, and derived significant benefit. 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 She has also undergone several more sessions of hyperbaric oxygen therapy. She also received a series of 10 EpiFix allografts in the course of previous treatment. Each of the patient's prior courses of treatment in our facility have been protracted, with difficulties encountered in achieving complete healing. Her most recent course of treatment ended with successful healing and discharge in February 2021. The patient presented at this time with a recurrence of her right groin ulceration, again thought to be secondary to soft tissue radiation injury. The ulceration recurred spontaneously approximately 2-3 weeks prior to her presentation. The patient indicates that her health history has not changed since she was last treated in our facility. She has been approved for hyperbaric oxygen therapy treatment for her ulcer in her right groin caused by radionecrosis. Subjective Subjective Today is the 2nd treatment of hyperbaric oxygen therapy. The patient is scheduled for 30 treatments total. Tolerance of hyperbaric oxygen therapy: Hyperbaric oxygen treatment was administered as per the facility's protocol.? Hyperbaric oxygen therapy was administered at 2.0 CHHAYA in 100% oxygen for 90 minutes without air breaks.? The patient tolerated hyperbaric oxygen well, without complications or complaints. Upon emergence of the hyperbaric chamber, the patient's vital signs remained stable.? She was discharged in good condition. Objective Data Objective Data Vital Signs: Vital Signs Temp Pulse Resp BP 98.4 F 85 18 138/78 H 05/10/22 13:44 05/10/22 13:44 05/10/22 13:44 05/10/22 13:44 Weight: 196 lb 1.696 oz Body Mass Index (BMI) 29.8 Exam Physical Exam Const alert, oriented x3 and no apparent distress General Appearance: cooperative and comfortable Orientation / Consciousness: awake, oriented to person, oriented to place and oriented to time HEENT normocephalic, head/scalp atraumatic, hearing grossly normal bilaterally and TM's normal bilaterally Head and Scalp: normal to inspection Eyes PERRL and EOMs intact bilaterally General Eye: normal appearance of both eyes Resp normal respiratory effort and normal air movement Effort and Inspection: able to speak in complete sentences and symmetric chest movement Neuro oriented x3 and moves all extremities Psych affect normal Nursing Assessment and Debridement Post-Debridement Measurements and Additional Note: Post-Debridement Measurements/Treatment WC - Nurse 1 - General Ulcer Assessment Start: 05/10/22 11:21 Freq: Status: Active Protocol: WC.LOWANT Activity Type Activity Date Activity User E-sign Co-sign Detail Recorded Client Recorded Date Recorded By Document 05/10/22 11:22 KRYSTINA [id number] 05/10/22 11:27 DL 05/10/22 11:22 WC - Today's Visit Information Type of service Follow-up 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/[facility] ) Arrival Mode Ambulatory Transfer Assistance None Patient Identification Verified (Name & Yes ) Patient Requires Transmission-Based No Precautions Height and Weight Body Mass Index (BMI) 29.8 BMI Classification Overweight Vital Signs Temperature (97.8 F-99.1 F) 97.8 F Temperature Source Temporal Pulse Rate (60-100) 85 Pulse Location Monitor Respiratory Rate (12-18) 18 Respiratory rate source Observation Blood Pressure (90/60-120/80) 138/78 H Blood Pressure Mean (mm Hg) 98 History Since Last Visit- (Skip if this is Patient's initial visit) Have you changed medications since your No last visit? Any new allergies or adverse reactions No Had a fall/change in ADL's that may No increase risk of falls Signs or symptoms of abuse and/or No neglect since last visit Have you been in the hospital since your No last visit? Has dressing in place as prescribed Yes Has compression in place as prescribed N/A Has offloadiing in place as prescribed Yes Experienced any changes in pain level or No management Pain Scale: 0-10 Numeric Is Patient Pain Free? Yes WC - Nurse 1 - General Ulcer Measurement Start: 05/10/22 11:21 Freq: Status: Active Protocol: Activity Type Activity Date Activity User E-sign Co-sign Detail Recorded Client Recorded Date Recorded By Document 05/10/22 11:22 DL [id number] 05/10/22 11:27 DL 05/10/22 11:22 Wound Center Nurse 1 #11 R Groin -Current Size (cm) - Length 2.2 -Current Size (cm) - Width 0.5 -Current Size (cm) - Depth 0.4 -Total Square Cm 1.10 -Photo Taken Yes -Tunneling Position (O'clock) 6 -Tunneling Distance (cm) 0.2 -Exudate Amt Small -Exudate Type Serosanguineous -Wound Margin Thickened & Rolled Under -Granulation Amt Small (1-33%) -Granulation Quality [place] -Necrosis Amt Small (1-33%) -Necrotic Tissue Type Adherent Slough -Structure Exposed N/A -Texture (Blanche-wound Skin Appearance) Scarring -Moisture (Blanche-wound Skin Appearance) No Abnormality -Color (Blanche-wound Skin Appearance) No Abnormality -Temperature (Blanche-wound Skin No Abnormality Appearance) (Pt Warm) -Tenderness on Palpation (Blanche-wound No Skin Appearance) -Ulcer Cleansing Rinsed/ Irrigated with Saline -Foul Odor after Cleansing No -Anesthetic Used 4% Lidocaine Solution WC - Nurse 2 - General Ulcer CM Notes Start: 05/10/22 11:21 Freq: Status: Active Protocol: Activity Type Activity Date Activity User E-sign Co-sign Detail Recorded Client Recorded Date Recorded By Document 05/10/22 12:13 PL [id number] 05/10/22 12:14 PL 05/10/22 12:13 Wound Center Nurse 2 -Time 11:41 -Correct Patient Yes -Correct Side, Site, Position Yes -Correct Procedure Yes -Procedure Performed Yes -Type of Procedure Debridement -Clinical Debridement Subcutaneous -Tissue Removed Subcutaneous -Post Debridement (cm) - Length 1.1 -Post Debridement (cm) - Width 0.2 -Post Debridement (cm) - Depth 0.1 -Total Square (Post) (cm) 0.22 -Area of Debridement (cm) - Length 1.1 -Area of Debridement (cm) - Width 0.2 -Total Square (Area) (cm) 0.22 -Tunneling No -Undermining/Tunneling No -Circular Undermining No -Wound/Ulcer Outcome Not Healed -Ulcer Cleansing Rinsed/ Irrigated with Saline -Foul Odor after Cleansing No -Bioengineered Tissue No -Bleeding Controlled with Pressure -Treatment Response Procedure Tolerated Well -Debridement - Subq, 1st 20sq cm Yes Pain Scale: 0-10 Numeric Is Patient Pain Free? Yes - Nurse 3 - General Ulcer D/C NN Start: 05/10/22 11:21 Freq: Status: Active Protocol: Activity Type Activity Date Activity User E-sign Co-sign Detail Recorded Client Recorded Date Recorded By Document 05/10/22 11:45 [facility] [id number] 05/10/22 11:46 [facility] 05/10/22 11:45 Wound Care Nurse 3 #11 R Groin -Ulcer Cleansing Rinsed/ Irrigated with Saline -Foul Odor after Cleansing No -Primary Dressing Applied Other -Other Dressing PT DID OWN DRSG W/ SANTLY FROM HOME -Primary Dressing Covered/Secured with Dry Gauze, Secured with Tape Treatment Response Procedure Tolerated Well Pain Scale: 0-10 Numeric Is Patient Pain Free? Yes - Visit Discharge Discharge Condition Stable Ambulatory Status Ambulatory Transportation Private Auto Assessment/Plan Assessment/Plan (1) Soft tissue radionecrosis: CODE(S): L59.8 - Other specified disorders of the skin and subcutaneous tissue related to radiation; Y84.2 - Radiological procedure and radiotherapy as the cause of abnormal reaction of the patient, or of later complication, without mention of misadventure at the time of the procedure (2) Radiation injury: CODE(S): T66.XXXA - Radiation sickness, unspecified, initial encounter QUALIFIERS: Encounter type: subsequent encounter Qualified Code(s): T66.XXXD - Radiation sickness, unspecified, subsequent encounter (3) soft tissue radiation injury: (4) History of melanoma: CODE(S): Z85.820 - Personal history of malignant melanoma of skin (5) Ulcer of right groin: CODE(S): L98.499 - Non-pressure chronic ulcer of skin of other sites with unspecified severity QUALIFIERS: Non-pressure ulcer stage: with fat layer exposed Qualified Code(s): L98.492 - Non-pressure chronic ulcer of skin of other sites with fat layer exposed (6) Amputee, above knee: CODE(S): Z89.619 - Acquired absence of unspecified leg above knee (7) History of uterine cancer: CODE(S): Z85.42 - Personal history of malignant neoplasm of other parts of uterus (8) Hyperlipidemia: CODE(S): E78.5 - Hyperlipidemia, unspecified PLAN: Plan The patient appears to be tolerating hyperbaric oxygen therapy well. She will continue as per her medical treatment plan.
[2022-05-16 11:06] VITALS: BP 146/77; BP 148/77; PULSE 73; PULSE 84; RESP 16; RESP 18; TEMP 36; TEMP 36.4
--- NOTE | 2022-05-16 14:45 | HBO.PN.PCM_ITS ---
History of Present Illness Date of Service: 05/16/22 Chief Complaint: Soft tissue radionecrosis of the right groin with open ul ceration History of Wound: This is a 67-year-old female with a long and complicated past medical history. The patient was diagnosed with melanoma of the right calf in the 1969's. 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 The patient underwent excision of her melanoma with lymphadenectomy in the right groin. She also underwent lengthy radiation treatments at the [facility] in [place], [place]. Melanoma recurred, and the patient was subsequently treated with monoclonal antibodies in 1984. 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 Treatment included local ulcer care and hyperbaric oxygen therapy. She underwent a total of nearly 90 treatments of hyperbaric oxygen therapy. It is known that she tolerated the therapies well, and derived significant benefit. 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 She has also undergone several more sessions of hyperbaric oxygen therapy. She also received a series of 10 EpiFix allografts in the course of previous treatment. Each of the patient's prior courses of treatment in our facility have been protracted, with difficulties encountered in achieving complete healing. Her most recent course of treatment ended with successful healing and discharge in February 2021. The patient presented at this time with a recurrence of her right groin ulceration, again thought to be secondary to soft tissue radiation injury. The ulceration recurred spontaneously approximately 2-3 weeks prior to her presentation. The patient indicates that her health history has not changed since she was last treated in our facility. She has been approved for hyperbaric oxygen therapy treatment for her ulcer in her right groin caused by radionecrosis. Subjective Subjective Today is the 3rd treatment of hyperbaric oxygen therapy.? The patient is scheduled for 30 treatments total. Tolerance of hyperbaric oxygen therapy: Hyperbaric oxygen treatment was administered as per the facility's protocol.? Hyperbaric oxygen therapy was administered at 2.0 CHHAYA in 100% oxygen for 90 minutes without air breaks.? The patient tolerated hyperbaric oxygen well, without complications or complaints. Upon emergence of the hyperbaric chamber, the patient's vital signs remained stable.? She was discharged in good condition. Objective Data Objective Data Vital Signs: Vital Signs Temp Pulse Resp BP 96.8 F L 84 18 146/77 H 05/16/22 11:06 05/16/22 11:06 05/16/22 11:06 05/16/22 11:06 Weight: 196 lb 1.696 oz Body Mass Index (BMI) 29.8 Exam Physical Exam Const alert, oriented x3 and no apparent distress General Appearance: cooperative HEENT normocephalic HEENT Narrative: Able to visualize her ear tubes bilaterally Eyes PERRL Resp normal respiratory effort and clear to auscultation bilaterally Effort and Inspection: able to speak in complete sentences Cardio regular rate and regular rhythm Psych affect normal Charges/Coding Wound Center CF Procedures HBO Supervision: [id number] Hyperbaric Oxygen; supervision Assessment/Plan Assessment/Plan (1) Soft tissue radionecrosis: CODE(S): L59.8 - Other specified disorders of the skin and subcutaneous tissue related to radiation; Y84.2 - Radiological procedure and radiotherapy as the cause of abnormal reaction of the patient, or of later complication, without mention of misadventure at the time of the procedure (2) Radiation injury: CODE(S): T66.XXXA - Radiation sickness, unspecified, initial encounter (3) soft tissue radiation injury: (4) History of melanoma: CODE(S): Z85.820 - Personal history of malignant melanoma of skin (5) Ulcer of right groin: CODE(S): L98.499 - Non-pressure chronic ulcer of skin of other sites with unspecified severity QUALIFIERS: Non-pressure ulcer stage: with fat layer exposed Qualified Code(s): L98.492 - Non-pressure chronic ulcer of skin of other sites with fat layer exposed (6) Amputee, above knee: CODE(S): Z89.619 - Acquired absence of unspecified leg above knee (7) History of uterine cancer: CODE(S): Z85.42 - Personal history of malignant neoplasm of other parts of uterus (8) Hyperlipidemia: CODE(S): E78.5 - Hyperlipidemia, unspecified PLAN: Plan The patient appears to be tolerating hyperbaric oxygen therapy well. She will continue as per her medical treatment plan.
[2022-05-17 08:53] VITALS: BP 156/88; PULSE 90; TEMP 36.1; BMI 29.8
--- NOTE | 2022-05-17 09:10 | PCM.WC.HP ---
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 The patient was diagnosed with melanoma of the right calf in the 1969's. 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 The patient underwent excision of her melanoma with lymphadenectomy in the right groin. She also underwent lengthy radiation treatments at the [facility] in [place], [place]. Melanoma recurred, and the patient was subsequently treated with monoclonal antibodies in 1984. 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 Treatment included local ulcer care and hyperbaric oxygen therapy. She underwent a total of nearly 90 treatments of hyperbaric oxygen therapy. It is known that she tolerated the therapies well, and derived significant benefit. 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 She has also undergone several more sessions of hyperbaric oxygen therapy. She also received a series of 10 EpiFix allografts in the course of previous treatment. Each of the patient's prior courses of treatment in our facility have been protracted, with difficulties encountered in achieving complete healing. Her most recent course of treatment ended with successful healing and discharge in February 2021. The patient presented at this time with a recurrence of her right groin ulceration, again thought to be secondary to soft tissue radiation injury. The ulceration recurred spontaneously approximately 2-3 weeks prior to her presentation. The patient indicates that her health history has not changed since she was last treated in our facility. She has been approved for hyperbaric oxygen therapy treatment for her ulcer in her right groin caused by radionecrosis. [facility] Medical History Bilateral cataracts Cancer Hemorrhoids Knee pain Radiation injury Home Medications famotidine 20 mg tablet 20 mg PO 06/20/17 [History Last Taken Unknown] pravastatin 20 mg tablet 20 mg PO DAILY 06/20/17 [History Last Taken Unknown] famotidine 40 mg tablet PO 90 days ##90 12/26/17 [History Last Taken Unknown] pravastatin 20 mg tablet PO 90 days ##90 12/26/17 [History Last Taken Unknown] Allergy/AdvReac Type Severity Reaction Status Date / Time No Known Allergies Allergy Verified 02/15/22 09:08 Family History Other Heart disease Hypertension Surgical History Hx of AKA (above knee amputation) Social History Smoking Status: Former smoker alcohol intake: current alcohol intake frequency: holidays/special occasions only Vital Signs Vital Signs Vital Signs: 05/16/22 11:06 05/17/22 08:53 Temperature 97 F L Temperature [Post Treatment] 97.6 F L Temperature [Pre Treatment] 96.8 F L Temperature Source Temporal Pulse Rate 90 Pulse Rate [Post Treatment] 73 Pulse Rate [Pre Treatment] 84 Respiratory Rate [Post Treatment] 16 Respiratory Rate [Pre Treatment] 18 Blood Pressure 156/88 H Blood Pressure [Post Treatment] 148/77 H Blood Pressure [Pre Treatment] 146/77 H Blood Pressure Mean 110 Blood Pressure Source Monitor Weight Weight: 196 lb 1.696 oz Body Mass Index (BMI) 29.8 Physical Exam Const alert, oriented x3 and no apparent distress General Appearance: cooperative, comfortable, well kempt and well developed Orientation / Consciousness: awake, oriented to person, oriented to place and oriented to time HEENT normocephalic, head/scalp atraumatic, hearing grossly normal bilaterally and TM's normal bilaterally Head and Scalp: normal to inspection, normocephalic and atraumatic Eyes PERRL and EOMs intact bilaterally General Eye: normal appearance of both eyes Pupil: PERRL Neck full ROM General: normal visual inspection Resp normal respiratory effort, normal air movement, no retractions and no use of accessory muscles Effort and Inspection: able to speak in complete sentences and symmetric chest movement Extremity Extremity Narrative: A well-healed right above knee amputation stump is noted. Skin Wound Narrative: The wound in the patient's right groin persists. There is a moderate amount of bioburden and nonviable tissue. Dimensions are documented elsewhere. Swab cultures have been obtained today for aerobic and anaerobic bacterial growth. Neuro oriented x3, CN's II-XII intact bilaterally and moves all extremities Sensorium / Orientation: awake, alert, oriented to person, oriented to place and oriented to time Psych affect normal Debridement Note Debridement Note Wound debrided: Right groin Laterality: Right Type of Debridement: Excisional debridement Anesthesia Used: 5% Lidocaine Gel Depth: Down to and including healthy tissue and in the subcutaneous layer Percentage of wound debrided: 100 Instrument Used: 3mm curette Tissue Removed: Bioburden and fibrous, nonviable tissue Severity: Fat Layer Exposed Amount of bleeding with debridement: Mild Bleeding Controlled with: Compression and gauze Patient tolerated procedure: Patient tolerated procedure well Debridement Free Text: Swab cultures have been obtained today for aerobic and anaerobic bacterial growth. 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 (Physician/GLASS CLEANING MACHINE TENDER ) ) Arrival Mode Ambulatory Ambulatory Transfer Assistance None Patient Identification Verified (Name & Yes Yes ) Patient Requires Transmission-Based No No Precautions Safety Precautions NA Height and Weight Body Mass Index (BMI) 29.8 29.8 BMI Classification Overweight Overweight Vital Signs Temperature (97.8 F-99.1 F) 97.8 F 97 F L Temperature Source Temporal Temporal Pulse Rate (60-100) 85 90 Pulse Location Monitor Monitor Respiratory Rate (12-18) 18 Respiratory rate source Observation Blood Pressure (90/60-120/80) 138/78 H 156/88 H Blood Pressure Mean 98 110 Source Monitor History Since Last Visit- (Skip if this is Patient's initial visit) Have you changed medications since your No No last visit? Any new allergies or adverse reactions No No Had a fall/change in ADL's that may No No increase risk of falls Signs or symptoms of abuse and/or No No neglect since last visit Have you been in the hospital since your No No last visit? Has dressing in place as prescribed Yes Yes Has compression in place as prescribed N/A N/A Has offloadiing in place as prescribed Yes N/A Experienced any changes in pain level or No No management Left Footwear Regular Shoe Right Footwear Regular Shoe Pain Scale: 0-10 Numeric Is Patient Pain Free? Yes Yes WC - Nurse 1 - General Ulcer Measurement Start: 05/10/22 11:21 Freq: Status: Active Protocol: Activity Type Activity Date Activity User E-sign Co-sign Detail Recorded Client Recorded Date Recorded By Document 05/10/22 11:22 DL [id number] 05/10/22 11:27 DL Document 05/17/22 08:53 AK [id number] 05/17/22 08:55 AK 05/10/22 05/17/22 11:22 08:53 Wound Center Nurse 1 #11 R Groin -Combined with other wound No -Current Size (cm) - Length 2.2 2.6 -Current Size (cm) - Width 0.5 0.5 -Current Size (cm) - Depth 0.4 0.6 -Total Square Cm 1.10 1.30 -Date of Last Picture (Recall this 05/17/22 field) -Photo Taken Yes Yes -Tunneling No -Tunneling Position (O'clock) 6 -Tunneling Distance (cm) 0.2 -Undermining/Tunneling No -Circular Undermining No -Change in Wound Grade/Stage No -Exudate Amt Small Medium -Exudate Type Serosanguineous Serosanguineous -Wound Margin Thickened & Distinct, Rolled Under Outline Attached -Granulation Amt Small (1-33%) None Present (0 %) -Granulation Quality E. Lopez N/A -Slough/Fibrin Yes -Necrosis Amt Small (1-33%) Large (67-100%) -Necrotic Tissue Type Adherent Slough Adherent Slough -Structure Exposed N/A N/A -Texture (Blanche-wound Skin Appearance) Scarring Assessed, Scarring -Moisture (Blanche-wound Skin Appearance) No Abnormality Assessed, Maceration -Color (Blanche-wound Skin Appearance) No Abnormality No Abnormality, Assessed -Temperature (Blanche-wound Skin No Abnormality No Abnormality Appearance) (Pt Warm) (Pt Warm) -Tenderness on Palpation (Blanche-wound No No Skin Appearance) -Ulcer Cleansing Rinsed/ Rinsed/ Irrigated with Irrigated with Saline Saline -Foul Odor after Cleansing No No -Anesthetic Used 4% Lidocaine 4% Lidocaine Solution Solution - Nurse 2 - General Ulcer CM Notes Start: 05/10/22 11:21 Freq: Status: Active Protocol: Activity Type Activity Date Activity User E-sign Co-sign Detail Recorded Client Recorded Date Recorded By Document 05/10/22 12:13 PL [id number] 05/10/22 12:14 PL 05/10/22 12:13 Wound Center Nurse 2 -Time 11:41 -Correct Patient Yes -Correct Side, Site, Position Yes -Correct Procedure Yes -Procedure Performed Yes -Type of Procedure Debridement -Clinical Debridement Subcutaneous -Tissue Removed Subcutaneous -Post Debridement (cm) - Length 1.1 -Post Debridement (cm) - Width 0.2 -Post Debridement (cm) - Depth 0.1 -Total Square (Post) (cm) 0.22 -Area of Debridement (cm) - Length 1.1 -Area of Debridement (cm) - Width 0.2 -Total Square (Area) (cm) 0.22 -Tunneling No -Undermining/Tunneling No -Circular Undermining No -Wound/Ulcer Outcome Not Healed -Ulcer Cleansing Rinsed/ Irrigated with Saline -Foul Odor after Cleansing No -Bioengineered Tissue No -Bleeding Controlled with Pressure -Treatment Response Procedure Tolerated Well -Debridement - Subq, 1st 20sq cm Yes Pain Scale: 0-10 Numeric Is Patient Pain Free? Yes - Nurse 3 - General Ulcer D/C NN Start: 05/10/22 11:21 Freq: Status: Active Protocol: Activity Type Activity Date Activity User E-sign Co-sign Detail Recorded Client Recorded Date Recorded By Document 05/10/22 11:45 [facility] [id number] 05/10/22 11:46 [facility] 05/10/22 11:45 Wound Care Nurse 3 #11 R Groin -Ulcer Cleansing Rinsed/ Irrigated with Saline -Foul Odor after Cleansing No -Primary Dressing Applied Other -Other Dressing PT DID OWN DRSG W/ SANTLY FROM HOME -Primary Dressing Covered/Secured with Dry Gauze, Secured with Tape Treatment Response Procedure Tolerated Well Pain Scale: 0-10 Numeric Is Patient Pain Free? Yes WC - Visit Discharge Discharge Condition Stable Ambulatory Status Ambulatory Transportation Private Auto Assessment/Plan Assessment/Plan (1) Soft tissue radionecrosis: CODE(S): L59.8 - Other specified disorders of the skin and subcutaneous tissue related to radiation; Y84.2 - Radiological procedure and radiotherapy as the cause of abnormal reaction of the patient, or of later complication, without mention of misadventure at the time of the procedure (2) Radiation injury: CODE(S): T66.XXXA - Radiation sickness, unspecified, initial encounter (3) soft tissue radiation injury: (4) History of melanoma: CODE(S): Z85.820 - Personal history of malignant melanoma of skin (5) Ulcer of right groin: CODE(S): L98.499 - Non-pressure chronic ulcer of skin of other sites with unspecified severity QUALIFIERS: Non-pressure ulcer stage: with fat layer exposed Qualified Code(s): L98.492 - Non-pressure chronic ulcer of skin of other sites with fat layer exposed (6) Amputee, above knee: CODE(S): Z89.619 - Acquired absence of unspecified leg above knee (7) History of uterine cancer: CODE(S): Z85.42 - Personal history of malignant neoplasm of other parts of uterus (8) Hyperlipidemia: CODE(S): E78.5 - Hyperlipidemia, unspecified PLAN: Plan We are to continue current wound management using collagenase Santyl topically on a daily basis. Swab cultures have been obtained today for both aerobic and anaerobic bacterial growth. Culture results will be awaited. Patient is currently undergoing hyperbaric oxygen therapy each weekday, which is to be continued, including today's session. It is noted that the patient has required the placement of tympanostomy tubes bilaterally due to ear pain experienced last week during hyperbaric oxygen therapy. She tolerated hyperbaric oxygen therapy yesterday uneventfully. Patient is to return in 1 week for reassessment. Total time: 25 minutes
[2022-05-17 11:56] VITALS: BP 136/80; BP 152/85; PULSE 72; PULSE 82; RESP 16; TEMP 36.2; TEMP 36.6
--- NOTE | 2022-05-17 15:15 | PCM.HBO.PN ---
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 The patient was diagnosed with melanoma of the right calf in the 1969's. 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 The patient underwent excision of her melanoma with lymphadenectomy in the right groin. She also underwent lengthy radiation treatments at the [facility] in [place], [place]. Melanoma recurred, and the patient was subsequently treated with monoclonal antibodies in 1984. 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 Treatment included local ulcer care and hyperbaric oxygen therapy. She underwent a total of nearly 90 treatments of hyperbaric oxygen therapy. It is known that she tolerated the therapies well, and derived significant benefit. 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 She has also undergone several more sessions of hyperbaric oxygen therapy. She also received a series of 10 EpiFix allografts in the course of previous treatment. Each of the patient's prior courses of treatment in our facility have been protracted, with difficulties encountered in achieving complete healing. Her most recent course of treatment ended with successful healing and discharge in February 2021. The patient presented at this time with a recurrence of her right groin ulceration, again thought to be secondary to soft tissue radiation injury. The ulceration recurred spontaneously approximately 2-3 weeks prior to her presentation. The patient indicates that her health history has not changed since she was last treated in our facility. She has been approved for hyperbaric oxygen therapy treatment for her ulcer in her right groin caused by radionecrosis. Subjective Subjective Today is the 4th treatment of hyperbaric oxygen therapy.? The patient is scheduled for 30 treatments total. Tolerance of hyperbaric oxygen therapy: Hyperbaric oxygen treatment was administered as per the facility's protocol.? Hyperbaric oxygen therapy was administered at 2.0 CHHAYA in 100% oxygen for 90 minutes without air breaks.? The patient tolerated hyperbaric oxygen well, without complications or complaints. Upon emergence of the hyperbaric chamber, the patient's vital signs remained stable.? She was discharged in good condition. Objective Data Objective Data Vital Signs: Vital Signs Temp Pulse Resp BP 97.9 F 82 16 152/85 H 05/17/22 11:56 05/17/22 11:56 05/17/22 11:56 05/17/22 11:56 Weight: 196 lb 1.696 oz Body Mass Index (BMI) 29.8 Exam Physical Exam Const alert, oriented x3, no apparent distress and well nourished General Appearance: cooperative and well developed HEENT normocephalic and EAC's normal Head and Scalp: atraumatic Eyes PERRL and EOMs intact bilaterally Neck no JVD Resp normal respiratory effort and no use of accessory muscles Effort and Inspection: able to speak in complete sentences Psych affect normal Appearance: grossly normal and well kempt Nursing Assessment and Debridement Post-Debridement Measurements and Additional Note: Post-Debridement Measurements/Treatment - Nurse 1 - General Ulcer Assessment Start: 05/10/22 11:21 Freq: Status: Active Protocol: KISHA.XOCHITL Activity Type Activity Date Activity User E-sign Co-sign Detail Recorded Client Recorded Date Recorded By Document 05/17/22 08:53 IN [id number] 05/17/22 08:55 AK 05/17/22 08:53 - Today's Visit Information Type of service Follow-up 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/PROFESSOR OF POLITICAL SCIENCE ) 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 Any new allergies or adverse reactions No Had a fall/change in ADL's that may No increase risk of falls Signs or symptoms of abuse and/or No neglect since last visit Have you been in the hospital since your No last visit? Has dressing in place as prescribed Yes Has compression in place as prescribed N/A Has offloadiing in place as prescribed N/A Experienced any changes in pain level or No management Left Footwear Regular Shoe Right Footwear Regular Shoe Pain Scale: 0-10 Numeric Is Patient Pain Free? Yes - Nurse 1 - General Ulcer Measurement Start: 05/10/22 11:21 Freq: Status: Active Protocol: Activity Type Activity Date Activity User E-sign Co-sign Detail Recorded Client Recorded Date Recorded By Document 05/17/22 08:53 IN [id number] 05/17/22 08:55 AK 05/17/22 08:53 Wound Center Nurse 1 #11 R Groin -Combined with other wound No -Current Size (cm) - Length 2.6 -Current Size (cm) - Width 0.5 -Current Size (cm) - Depth 0.6 -Total Square Cm 1.30 -Date of Last Picture (Recall this 05/17/22 field) -Photo Taken Yes -Tunneling No -Undermining/Tunneling No -Circular Undermining No -Change in Wound Grade/Stage No -Exudate Amt Medium -Exudate Type Serosanguineous -Wound Margin Distinct, Outline Attached -Granulation Amt None Present (0 %) -Granulation Quality N/A -Slough/Fibrin Yes -Necrosis Amt Large (67-100%) -Necrotic Tissue Type Adherent Slough -Structure Exposed N/A -Texture (Blanche-wound Skin Appearance) Assessed, Scarring -Moisture (Blanche-wound Skin Appearance) Assessed, Maceration -Color (Blanche-wound Skin Appearance) No Abnormality, Assessed -Temperature (Blanche-wound Skin No Abnormality Appearance) (Pt Warm) -Tenderness on Palpation (Blanche-wound No Skin Appearance) -Ulcer Cleansing Rinsed/ Irrigated with Saline -Foul Odor after Cleansing No -Anesthetic Used 4% Lidocaine Solution - Nurse 2 - General Ulcer CM Notes Start: 05/10/22 11:21 Freq: Status: Active Protocol: Activity Type Activity Date Activity User E-sign Co-sign Detail Recorded Client Recorded Date Recorded By Document 05/17/22 11:36 PL [id number] 05/17/22 11:37 PL 05/17/22 11:36 Wound Center Nurse 2 -Time 09:02 -Correct Patient Yes -Correct Side, Site, Position Yes -Correct Procedure Yes -Procedure Performed Yes -Type of Procedure Debridement -Clinical Debridement Subcutaneous -Tissue Removed Subcutaneous -Post Debridement (cm) - Length 2.6 -Post Debridement (cm) - Width 0.5 -Post Debridement (cm) - Depth 0.6 -Total Square (Post) (cm) 1.30 -Area of Debridement (cm) - Length 2.6 -Area of Debridement (cm) - Width 0.5 -Total Square (Area) (cm) 1.30 -Tunneling No -Undermining/Tunneling No -Circular Undermining No -Wound/Ulcer Outcome Not Healed -Ulcer Cleansing Rinsed/ Irrigated with Saline -Foul Odor after Cleansing No -Bioengineered Tissue No -Bleeding Controlled with Pressure -Treatment Response Procedure Tolerated Well -Debridement - Subq, 1st 20sq cm Yes Pain Scale: 0-10 Numeric Is Patient Pain Free? Yes - Nurse 3 - General Ulcer D/C NN Start: 05/10/22 11:21 Freq: Status: Active Protocol: Activity Type Activity Date Activity User E-sign Co-sign Detail Recorded Client Recorded Date Recorded By Document 05/17/22 09:19 MW [id number] 05/17/22 09:20 MW 05/17/22 09:19 Wound Care Nurse 3 #11 R Groin -Ulcer Cleansing Rinsed/ Irrigated with Saline -Foul Odor after Cleansing No -Negative Pressure Wound Therapy N/A -Other Dressing C. Santyl -Primary Dressing Covered/Secured with Dry Gauze, Secured with Tape Treatment Response Procedure Tolerated Well Pain Scale: 0-10 Numeric Is Patient Pain Free? Yes Teaching: Wound Center Dressing Your Wound -Person Taught Patient -Teaching Method Discussion, Demonstration -Response to teaching Verbalize understanding WC - Visit Discharge Discharge Condition Stable Ambulatory Status Ambulatory Transportation Private Auto Accompanied by self Medication Reconcilliation completed & No provided to patient/care provider Clinical Summary of Care Provided Yes Assessment/Plan Assessment/Plan (1) Soft tissue radionecrosis: CODE(S): L59.8 - Other specified disorders of the skin and subcutaneous tissue related to radiation; Y84.2 - Radiological procedure and radiotherapy as the cause of abnormal reaction of the patient, or of later complication, without mention of misadventure at the time of the procedure (2) Radiation injury: CODE(S): T66.XXXA - Radiation sickness, unspecified, initial encounter (3) soft tissue radiation injury: (4) History of melanoma: CODE(S): Z85.820 - Personal history of malignant melanoma of skin (5) Ulcer of right groin: CODE(S): L98.499 - Non-pressure chronic ulcer of skin of other sites with unspecified severity QUALIFIERS: Non-pressure ulcer stage: with fat layer exposed Qualified Code(s): L98.492 - Non-pressure chronic ulcer of skin of other sites with fat layer exposed (6) Amputee, above knee: CODE(S): Z89.619 - Acquired absence of unspecified leg above knee (7) History of uterine cancer: CODE(S): Z85.42 - Personal history of malignant neoplasm of other parts of uterus (8) Hyperlipidemia: CODE(S): E78.5 - Hyperlipidemia, unspecified PLAN: Plan We are to continue current wound management using collagenase Santyl topically on a daily basis. Swab cultures have been obtained today for both aerobic and anaerobic bacterial growth. Culture results will be awaited. Patient is currently undergoing hyperbaric oxygen therapy each weekday, which is to be continued, including today's session. It is noted that the patient has required the placement of tympanostomy tubes bilaterally due to ear pain experienced last week during hyperbaric oxygen therapy. She tolerated hyperbaric oxygen therapy yesterday uneventfully. She tolerated today's session of hyperbaric oxygen therapy uneventfully as well. Hyperbaric oxygen therapy is to be continued as per the patient's medical plan.
[2022-05-18 11:19] VITALS: BP 145/70; BP 158/79; PULSE 73; PULSE 78; RESP 16; RESP 17; TEMP 36; TEMP 36.4
--- NOTE | 2022-05-18 12:44 | HBO.PN.PCM_ITS ---
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 The patient was diagnosed with melanoma of the right calf in the 1969's. 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 The patient underwent excision of her melanoma with lymphadenectomy in the right groin. She also underwent lengthy radiation treatments at the [facility] in [place], [place]. Melanoma recurred, and the patient was subsequently treated with monoclonal antibodies in 1984. 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 Treatment included local ulcer care and hyperbaric oxygen therapy. She underwent a total of nearly 90 treatments of hyperbaric oxygen therapy. It is known that she tolerated the therapies well, and derived significant benefit. 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 She has also undergone several more sessions of hyperbaric oxygen therapy. She also received a series of 10 EpiFix allografts in the course of previous treatment. Each of the patient's prior courses of treatment in our facility have been protracted, with difficulties encountered in achieving complete healing. Her most recent course of treatment ended with successful healing and discharge in February 2021. The patient presented at this time with a recurrence of her right groin ulceration, again thought to be secondary to soft tissue radiation injury. The ulceration recurred spontaneously approximately 2-3 weeks prior to her presentation. The patient indicates that her health history has not changed since she was last treated in our facility. She has been approved for hyperbaric oxygen therapy treatment for her ulcer in her right groin caused by radionecrosis. Subjective Subjective Today is the 5th treatment of hyperbaric oxygen therapy.? The patient is scheduled for 30 treatments total. Tolerance of hyperbaric oxygen therapy: Hyperbaric oxygen treatment was administered as per the facility's protocol.? Hyperbaric oxygen therapy was administered at 2.0 CHHAYA in 100% oxygen for 90 minutes without air breaks.? The patient tolerated hyperbaric oxygen well, without complications or complaints. Upon emergence of the hyperbaric chamber, the patient's vital signs remained stable.? She was discharged in good condition. Objective Data Objective Data Vital Signs: Vital Signs Temp Pulse Resp BP 96.8 F L 78 17 145/70 H 05/18/22 11:19 05/18/22 11:19 05/18/22 11:19 05/18/22 11:19 Weight: 196 lb 1.696 oz Body Mass Index (BMI) 29.8 Lab / Micro Data Micro: Microbiology 05/17/22 09:05 Wound Abcess - Groin Gram Stain - Final 05/17/22 09:05 Wound Abcess - Groin Wound Culture - Preliminary Staphylococcus aureus Exam Physical Exam Const alert, oriented x3 and no apparent distress General Appearance: cooperative HEENT normocephalic HEENT Narrative: Able to visualize her ear tubes bilaterally Eyes PERRL Resp normal respiratory effort and clear to auscultation bilaterally Effort and Inspection: able to speak in complete sentences Cardio regular rate and regular rhythm Psych affect normal Nursing Assessment and Debridement Post-Debridement Measurements and Additional Note: Post-Debridement Measurements/Treatment WC - Nurse 1 - General Ulcer Assessment Start: 05/10/22 11:21 Freq: Status: Active Protocol: KISHA.XOCHITL Activity Type Activity Date Activity User E-sign Co-sign Detail Recorded Client Recorded Date Recorded By Document 05/17/22 08:53 [place] [id number] 05/17/22 08:55 AK 05/17/22 08:53 WC - Today's Visit Information 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 service 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 Any new allergies or adverse reactions No Had a fall/change in ADL's that may No increase risk of falls Signs or symptoms of abuse and/or No neglect since last visit Have you been in the hospital since your No last visit? Has dressing in place as prescribed Yes Has compression in place as prescribed N/A Has offloadiing in place as prescribed N/A Experienced any changes in pain level or No management Left Footwear Regular Shoe Right Footwear Regular Shoe Pain Scale: 0-10 Numeric Is Patient Pain Free? Yes WC - Nurse 1 - General Ulcer Measurement Start: 05/10/22 11:21 Freq: Status: Active Protocol: Activity Type Activity Date Activity User E-sign Co-sign Detail Recorded Client Recorded Date Recorded By Document 05/17/22 08:53 AK [id number] 05/17/22 08:55 AK 05/17/22 08:53 Wound Center Nurse 1 #11 R Groin -Combined with other wound No -Current Size (cm) - Length 2.6 -Current Size (cm) - Width 0.5 -Current Size (cm) - Depth 0.6 -Total Square Cm 1.30 -Date of Last Picture (Recall this 05/17/22 field) -Photo Taken Yes -Tunneling No -Undermining/Tunneling No -Circular Undermining No -Change in Wound Grade/Stage No -Exudate Amt Medium -Exudate Type Serosanguineous -Wound Margin Distinct, Outline Attached -Granulation Amt None Present (0 %) -Granulation Quality N/A -Slough/Fibrin Yes -Necrosis Amt Large (67-100%) -Necrotic Tissue Type Adherent Slough -Structure Exposed N/A -Texture (Blanche-wound Skin Appearance) Assessed, Scarring -Moisture (Blanche-wound Skin Appearance) Assessed, Maceration -Color (Blanche-wound Skin Appearance) No Abnormality, Assessed -Temperature (Blanche-wound Skin No Abnormality Appearance) (Pt Warm) -Tenderness on Palpation (Blanche-wound No Skin Appearance) -Ulcer Cleansing Rinsed/ Irrigated with Saline -Foul Odor after Cleansing No -Anesthetic Used 4% Lidocaine Solution WC - Nurse 2 - General Ulcer CM Notes Start: 05/10/22 11:21 Freq: Status: Active Protocol: Activity Type Activity Date Activity User E-sign Co-sign Detail Recorded Client Recorded Date Recorded By Document 05/17/22 11:36 PL [id number] 05/17/22 11:37 PL 05/17/22 11:36 Wound Center Nurse 2 -Time 09:02 -Correct Patient Yes -Correct Side, Site, Position Yes -Correct Procedure Yes -Procedure Performed Yes -Type of Procedure Debridement -Clinical Debridement Subcutaneous -Tissue Removed Subcutaneous -Post Debridement (cm) - Length 2.6 -Post Debridement (cm) - Width 0.5 -Post Debridement (cm) - Depth 0.6 -Total Square (Post) (cm) 1.30 -Area of Debridement (cm) - Length 2.6 -Area of Debridement (cm) - Width 0.5 -Total Square (Area) (cm) 1.30 -Tunneling No -Undermining/Tunneling No -Circular Undermining No -Wound/Ulcer Outcome Not Healed -Ulcer Cleansing Rinsed/ Irrigated with Saline -Foul Odor after Cleansing No -Bioengineered Tissue No -Bleeding Controlled with Pressure -Treatment Response Procedure Tolerated Well -Debridement - Subq, 1st 20sq cm Yes Pain Scale: 0-10 Numeric Is Patient Pain Free? Yes WC - Nurse 3 - General Ulcer D/C NN Start: 05/10/22 11:21 Freq: Status: Active Protocol: Activity Type Activity Date Activity User E-sign Co-sign Detail Recorded Client Recorded Date Recorded By Document 05/17/22 09:19 MW [id number] 05/17/22 09:20 MW 05/17/22 09:19 Wound Care Nurse 3 #11 R Groin -Ulcer Cleansing Rinsed/ Irrigated with Saline -Foul Odor after Cleansing No -Negative Pressure Wound Therapy N/A -Other Dressing C. Santyl -Primary Dressing Covered/Secured with Dry Gauze, Secured with Tape Treatment Response Procedure Tolerated Well Pain Scale: 0-10 Numeric Is Patient Pain Free? Yes Teaching: Wound Center Dressing Your Wound -Person Taught Patient -Teaching Method Discussion, Demonstration -Response to teaching Verbalize understanding WC - Visit Discharge Discharge Condition Stable Ambulatory Status Ambulatory Transportation Private Auto Accompanied by self Medication Reconcilliation completed & No provided to patient/care provider Clinical Summary of Care Provided Yes Charges/Coding Wound Center CF Procedures HBO Supervision: [id number] Hyperbaric Oxygen; supervision Assessment/Plan Assessment/Plan (1) Soft tissue radionecrosis: CODE(S): L59.8 - Other specified disorders of the skin and subcutaneous tissue related to radiation; Y84.2 - Radiological procedure and radiotherapy as the cause of abnormal reaction of the patient, or of later complication, without mention of misadventure at the time of the procedure (2) Radiation injury: CODE(S): T66.XXXA - Radiation sickness, unspecified, initial encounter (3) soft tissue radiation injury: (4) History of melanoma: CODE(S): Z85.820 - Personal history of malignant melanoma of skin (5) Ulcer of right groin: CODE(S): L98.499 - Non-pressure chronic ulcer of skin of other sites with unspecified severity QUALIFIERS: Non-pressure ulcer stage: with fat layer exposed Qualified Code(s): L98.492 - Non-pressure chronic ulcer of skin of other sites with fat layer exposed (6) Amputee, above knee: CODE(S): Z89.619 - Acquired absence of unspecified leg above knee (7) History of uterine cancer: CODE(S): Z85.42 - Personal history of malignant neoplasm of other parts of uterus (8) Hyperlipidemia: CODE(S): E78.5 - Hyperlipidemia, unspecified PLAN: Plan The patient appears to be tolerating hyperbaric oxygen therapy well. She will continue as per her medical treatment plan.
[2022-05-19 11:49] VITALS: BP 125/66; BP 155/85; PULSE 72; PULSE 82; RESP 16; RESP 17; TEMP 35.7
--- NOTE | 2022-05-19 13:03 | HBO.PN.PCM_ITS ---
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 The patient was diagnosed with melanoma of the right calf in the 1969's. 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 The patient underwent excision of her melanoma with lymphadenectomy in the right groin. She also underwent lengthy radiation treatments at the [facility] in [place], [place]. Melanoma recurred, and the patient was subsequently treated with monoclonal antibodies in 1984. 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 Treatment included local ulcer care and hyperbaric oxygen therapy. She underwent a total of nearly 90 treatments of hyperbaric oxygen therapy. It is known that she tolerated the therapies well, and derived significant benefit. 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 She has also undergone several more sessions of hyperbaric oxygen therapy. She also received a series of 10 EpiFix allografts in the course of previous treatment. Each of the patient's prior courses of treatment in our facility have been protracted, with difficulties encountered in achieving complete healing. Her most recent course of treatment ended with successful healing and discharge in February 2021. The patient presented at this time with a recurrence of her right groin ulceration, again thought to be secondary to soft tissue radiation injury. The ulceration recurred spontaneously approximately 2-3 weeks prior to her presentation. The patient indicates that her health history has not changed since she was last treated in our facility. She has been approved for hyperbaric oxygen therapy treatment for her ulcer in her right groin caused by radionecrosis. Progress of Wound: Today is the 6th treatment of hyperbaric oxygen therapy.? The patient is scheduled for 30 treatments total. Tolerance of hyperbaric oxygen therapy: Hyperbaric oxygen treatment was administered as per the facility's protocol.? Hyperbaric oxygen therapy was administered at 2.0 CHHAYA in 100% oxygen for 90 minutes without air breaks.? The patient tolerated hyperbaric oxygen well, without complications or complaints. Upon emergence of the hyperbaric chamber, the patient's vital signs remained stable.? She was discharged in good condition. Objective Data Objective Data Vital Signs: Vital Signs Temp Pulse Resp BP 96.3 F L 82 16 155/85 H 05/19/22 11:49 05/19/22 11:49 05/19/22 11:49 05/19/22 11:49 Weight: 196 lb 1.696 oz Body Mass Index (BMI) 29.8 Lab / Micro Data Micro: Microbiology 05/17/22 09:05 Wound Abcess - Groin Gram Stain - Final 05/17/22 09:05 Wound Abcess - Groin Wound Culture - Final Staphylococcus aureus Exam Physical Exam Const alert, oriented x3 and no apparent distress General Appearance: cooperative HEENT normocephalic HEENT Narrative: Able to visualize her ear tubes bilaterally Resp normal respiratory effort and clear to auscultation bilaterally Effort and Inspection: able to speak in complete sentences Psych affect normal Nursing Assessment and Debridement Post-Debridement Measurements and Additional Note: Post-Debridement Measurements/Treatment WC - Nurse 1 - General Ulcer Assessment Start: 05/10/22 11:21 Freq: Status: Active Protocol: WC.XOCHITL Activity Type Activity Date Activity User E-sign Co-sign Detail Recorded Client Recorded Date Recorded By Document 05/17/22 08:53 OR [id number] 05/17/22 08:55 AK 05/17/22 08:53 WC - Today's Visit Information 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 Any new allergies or adverse reactions No Had a fall/change in ADL's that may No increase risk of falls Signs or symptoms of abuse and/or No neglect since last visit Have you been in the hospital since your No last visit? Has dressing in place as prescribed Yes Has compression in place as prescribed N/A Has offloadiing in place as prescribed N/A Experienced any changes in pain level or No management Left Footwear Regular Shoe Right Footwear Regular Shoe Pain Scale: 0-10 Numeric Is Patient Pain Free? Yes WC - Nurse 1 - General Ulcer Measurement Start: 05/10/22 11:21 Freq: Status: Active Protocol: Activity Type Activity Date Activity User E-sign Co-sign Detail Recorded Client Recorded Date Recorded By Document 05/17/22 08:53 AK [id number] 05/17/22 08:55 AK 05/17/22 08:53 Wound Center Nurse 1 #11 R Groin -Combined with other wound No -Current Size (cm) - Length 2.6 -Current Size (cm) - Width 0.5 -Current Size (cm) - Depth 0.6 -Total Square Cm 1.30 -Date of Last Picture (Recall this 05/17/22 field) -Photo Taken Yes -Tunneling No -Undermining/Tunneling No -Circular Undermining No -Change in Wound Grade/Stage No -Exudate Amt Medium -Exudate Type Serosanguineous -Wound Margin Distinct, Outline Attached -Granulation Amt None Present (0 %) -Granulation Quality N/A -Slough/Fibrin Yes -Necrosis Amt Large (67-100%) -Necrotic Tissue Type Adherent Slough -Structure Exposed N/A -Texture (Blanche-wound Skin Appearance) Assessed, Scarring -Moisture (Blanche-wound Skin Appearance) Assessed, Maceration -Color (Blanche-wound Skin Appearance) No Abnormality, Assessed -Temperature (Blanche-wound Skin No Abnormality Appearance) (Pt Warm) -Tenderness on Palpation (Blanche-wound No Skin Appearance) -Ulcer Cleansing Rinsed/ Irrigated with Saline -Foul Odor after Cleansing No -Anesthetic Used 4% Lidocaine Solution WC - Nurse 2 - General Ulcer CM Notes Start: 05/10/22 11:21 Freq: Status: Active Protocol: Activity Type Activity Date Activity User E-sign Co-sign Detail Recorded Client Recorded Date Recorded By Document 05/17/22 11:36 PL [id number] 05/17/22 11:37 PL 05/17/22 11:36 Wound Center Nurse 2 -Time 09:02 -Correct Patient Yes -Correct Side, Site, Position Yes -Correct Procedure Yes -Procedure Performed Yes -Type of Procedure Debridement -Clinical Debridement Subcutaneous -Tissue Removed Subcutaneous -Post Debridement (cm) - Length 2.6 -Post Debridement (cm) - Width 0.5 -Post Debridement (cm) - Depth 0.6 -Total Square (Post) (cm) 1.30 -Area of Debridement (cm) - Length 2.6 -Area of Debridement (cm) - Width 0.5 -Total Square (Area) (cm) 1.30 -Tunneling No -Undermining/Tunneling No -Circular Undermining No -Wound/Ulcer Outcome Not Healed -Ulcer Cleansing Rinsed/ Irrigated with Saline -Foul Odor after Cleansing No -Bioengineered Tissue No -Bleeding Controlled with Pressure -Treatment Response Procedure Tolerated Well -Debridement - Subq, 1st 20sq cm Yes Pain Scale: 0-10 Numeric Is Patient Pain Free? Yes - Nurse 3 - General Ulcer D/C NN Start: 05/10/22 11:21 Freq: Status: Active Protocol: Activity Type Activity Date Activity User E-sign Co-sign Detail Recorded Client Recorded Date Recorded By Document 05/17/22 09:19 MW [id number] 05/17/22 09:20 MW 05/17/22 09:19 Wound Care Nurse 3 #11 R Groin -Ulcer Cleansing Rinsed/ Irrigated with Saline -Foul Odor after Cleansing No -Negative Pressure Wound Therapy N/A -Other Dressing C. Santyl -Primary Dressing Covered/Secured with Dry Gauze, Secured with Tape Treatment Response Procedure Tolerated Well Pain Scale: 0-10 Numeric Is Patient Pain Free? Yes Teaching: Wound Center Dressing Your Wound -Person Taught Patient -Teaching Method Discussion, Demonstration -Response to teaching Verbalize understanding WC - Visit Discharge Discharge Condition Stable Ambulatory Status Ambulatory Transportation Private Auto Accompanied by self Medication Reconcilliation completed & No provided to patient/care provider Clinical Summary of Care Provided Yes Charges/Coding Wound Center CF Procedures HBO Supervision: [id number] Hyperbaric Oxygen; supervision Assessment/Plan Assessment/Plan (1) Soft tissue radionecrosis: CODE(S): L59.8 - Other specified disorders of the skin and subcutaneous tissue related to radiation; Y84.2 - Radiological procedure and radiotherapy as the cause of abnormal reaction of the patient, or of later complication, without mention of misadventure at the time of the procedure (2) Radiation injury: CODE(S): T66.XXXA - Radiation sickness, unspecified, initial encounter (3) soft tissue radiation injury: (4) Ulcer of right groin: CODE(S): L98.499 - Non-pressure chronic ulcer of skin of other sites with unspecified severity QUALIFIERS: Non-pressure ulcer stage: with fat layer exposed Qualified Code(s): L98.492 - Non-pressure chronic ulcer of skin of other sites with fat layer exposed (5) Amputee, above knee: CODE(S): Z89.619 - Acquired absence of unspecified leg above knee PLAN: Plan The patient tolerated hyperbaric oxygen therapy well which will be continued as per her medical plan. This note was generated with [employer] dictation software. It may contain incorrect words, spelling, and punctuation that were not noted in checking the note before signing.
[2022-05-20 12:16] VITALS: BP 139/59; BP 147/68; PULSE 73; PULSE 78; RESP 16; RESP 17; TEMP 36.8
--- NOTE | 2022-05-20 14:38 | HBO.PN.PCM_ITS ---
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 The patient was diagnosed with melanoma of the right calf in the 1969's. 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 The patient underwent excision of her melanoma with lymphadenectomy in the right groin. She also underwent lengthy radiation treatments at the [facility] in [place], [place]. Melanoma recurred, and the patient was subsequently treated with monoclonal antibodies in 1984. 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 Treatment included local ulcer care and hyperbaric oxygen therapy. She underwent a total of nearly 90 treatments of hyperbaric oxygen therapy. It is known that she tolerated the therapies well, and derived significant benefit. 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 She has also undergone several more sessions of hyperbaric oxygen therapy. She also received a series of 10 EpiFix allografts in the course of previous treatment. Each of the patient's prior courses of treatment in our facility have been protracted, with difficulties encountered in achieving complete healing. Her most recent course of treatment ended with successful healing and discharge in February 2021. The patient presented at this time with a recurrence of her right groin ulceration, again thought to be secondary to soft tissue radiation injury. The ulceration recurred spontaneously approximately 2-3 weeks prior to her presentation. The patient indicates that her health history has not changed since she was last treated in our facility. She has been approved for hyperbaric oxygen therapy treatment for her ulcer in her right groin caused by radionecrosis. Progress of Wound: Today is the 7th treatment of hyperbaric oxygen therapy.? The patient is scheduled for 30 treatments total. Tolerance of hyperbaric oxygen therapy: Hyperbaric oxygen treatment was administered as per the facility's protocol.? Hyperbaric oxygen therapy was administered at 2.0 CHHAYA in 100% oxygen for 90 minutes without air breaks.? The patient tolerated hyperbaric oxygen well, without complications or complaints. Upon emergence of the hyperbaric chamber, the patient's vital signs remained stable.? She was discharged in good condition. Objective Data Objective Data Vital Signs: Vital Signs Temp Pulse Resp BP 98.2 F 78 17 147/68 H 05/20/22 12:16 05/20/22 12:16 05/20/22 12:16 05/20/22 12:16 Weight: 88.952 kg Body Mass Index (BMI) 29.8 Lab / Micro Data Micro: Microbiology 05/17/22 09:05 Wound Abcess - Groin Gram Stain - Final 05/17/22 09:05 Wound Abcess - Groin Wound Culture - Final Staphylococcus aureus 05/17/22 09:05 Wound Abcess - Groin Anaerobic Culture - Preliminary Checking for anaerobes, further studies to follow. Exam Physical Exam Const alert, oriented x3 and no apparent distress HEENT HEENT Narrative: tympanostomy tubes present bilaterally Psych mental status grossly normal, thought process normal, cooperative, affect normal and speech normal Assessment/Plan Assessment/Plan (1) Soft tissue radionecrosis: CODE(S): L59.8 - Other specified disorders of the skin and subcutaneous tissue related to radiation; Y84.2 - Radiological procedure and radiotherapy as the cause of abnormal reaction of the patient, or of later complication, without mention of misadventure at the time of the procedure (2) Radiation injury: CODE(S): T66.XXXA - Radiation sickness, unspecified, initial encounter (3) soft tissue radiation injury: (4) Ulcer of right groin: CODE(S): L98.499 - Non-pressure chronic ulcer of skin of other sites with unspecified severity QUALIFIERS: Non-pressure ulcer stage: with fat layer exposed Qualified Code(s): L98.492 - Non-pressure chronic ulcer of skin of other sites with fat layer exposed (5) Amputee, above knee: CODE(S): Z89.619 - Acquired absence of unspecified leg above knee PLAN: Plan The patient tolerated hyperbaric oxygen therapy well which will be continued as per her medical plan. This note was generated with [employer] software. It may contain incorrect words, spelling, and punctuation that were not noted in checking the note before signing.
[2022-05-23 10:57] VITALS: BP 144/72; BP 156/86; PULSE 70; PULSE 82; RESP 16; RESP 18; TEMP 36
--- NOTE | 2022-05-23 11:24 | PCM.HBO.PN ---
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 The patient was diagnosed with melanoma of the right calf in the 1969's. 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 The patient underwent excision of her melanoma with lymphadenectomy in the right groin. She also underwent lengthy radiation treatments at the [facility] in [place], [place]. Melanoma recurred, and the patient was subsequently treated with monoclonal antibodies in 1984. 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 Treatment included local ulcer care and hyperbaric oxygen therapy. She underwent a total of nearly 90 treatments of hyperbaric oxygen therapy. It is known that she tolerated the therapies well, and derived significant benefit. 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 She has also undergone several more sessions of hyperbaric oxygen therapy. She also received a series of 10 EpiFix allografts in the course of previous treatment. Each of the patient's prior courses of treatment in our facility have been protracted, with difficulties encountered in achieving complete healing. Her most recent course of treatment ended with successful healing and discharge in February 2021. The patient presented at this time with a recurrence of her right groin ulceration, again thought to be secondary to soft tissue radiation injury. The ulceration recurred spontaneously approximately 2-3 weeks prior to her presentation. The patient indicates that her health history has not changed since she was last treated in our facility. She has been approved for hyperbaric oxygen therapy treatment for her ulcer in her right groin caused by radionecrosis. Progress of Wound: Today is the 8th treatment of hyperbaric oxygen therapy.? The patient is scheduled for 30 treatments total. Tolerance of hyperbaric oxygen therapy: Hyperbaric oxygen treatment was administered as per the facility's protocol.? Hyperbaric oxygen therapy was administered at 2.0 CHHAYA in 100% oxygen for 90 minutes without air breaks.? The patient tolerated hyperbaric oxygen well, without complications or complaints. Upon emergence of the hyperbaric chamber, the patient's vital signs remained stable.? She was discharged in good condition. Objective Data Objective Data Vital Signs: Vital Signs Temp Pulse Resp BP 96.8 F L 82 18 156/86 H 05/23/22 10:57 05/23/22 10:57 05/23/22 10:57 05/23/22 10:57 Weight: 196 lb 1.696 oz Body Mass Index (BMI) 29.8 Lab / Micro Data Micro: Microbiology 05/17/22 09:05 Wound Abcess - Groin Gram Stain - Final 05/17/22 09:05 Wound Abcess - Groin Wound Culture - Final Staphylococcus aureus 05/17/22 09:05 Wound Abcess - Groin Anaerobic Culture - Final Anaerobic cocci Exam Physical Exam Const alert, oriented x3 and no apparent distress HEENT HEENT Narrative: tympanostomy tubes present bilaterally Psych mental status grossly normal, thought process normal, cooperative, affect normal and speech normal Assessment/Plan Assessment/Plan (1) Soft tissue radionecrosis: CODE(S): L59.8 - Other specified disorders of the skin and subcutaneous tissue related to radiation; Y84.2 - Radiological procedure and radiotherapy as the cause of abnormal reaction of the patient, or of later complication, without mention of misadventure at the time of the procedure (2) Radiation injury: CODE(S): T66.XXXA - Radiation sickness, unspecified, initial encounter (3) soft tissue radiation injury: (4) Ulcer of right groin: CODE(S): L98.499 - Non-pressure chronic ulcer of skin of other sites with unspecified severity QUALIFIERS: Non-pressure ulcer stage: with fat layer exposed Qualified Code(s): L98.492 - Non-pressure chronic ulcer of skin of other sites with fat layer exposed (5) Amputee, above knee: CODE(S): Z89.619 - Acquired absence of unspecified leg above knee PLAN: Plan The patient tolerated hyperbaric oxygen therapy well which will be continued as per her medical plan. This note was generated with [employer] software. It may contain incorrect words, spelling, and punctuation that were not noted in checking the note before signing.
[2022-05-24 08:59] VITALS: BP 170/89; PULSE 84; TEMP 36.1; BMI 29.8
[2022-05-24 10:19] VITALS: BP 145/76; BP 182/82; PULSE 60; PULSE 83; RESP 16; RESP 17; TEMP 36.6
--- NOTE | 2022-05-24 14:13 | PCM.WC.HP ---
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 The patient was diagnosed with melanoma of the right calf in the 1969's. 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 The patient underwent excision of her melanoma with lymphadenectomy in the right groin. She also underwent lengthy radiation treatments at the [facility] in [place], [place]. Melanoma recurred, and the patient was subsequently treated with monoclonal antibodies in 1984. 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 Treatment included local ulcer care and hyperbaric oxygen therapy. She underwent a total of nearly 90 treatments of hyperbaric oxygen therapy. It is known that she tolerated the therapies well, and derived significant benefit. 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 She has also undergone several more sessions of hyperbaric oxygen therapy. She also received a series of 10 EpiFix allografts in the course of previous treatment. Each of the patient's prior courses of treatment in our facility have been protracted, with difficulties encountered in achieving complete healing. Her most recent course of treatment ended with successful healing and discharge in February 2021. The patient presented at this time with a recurrence of her right groin ulceration, again thought to be secondary to soft tissue radiation injury. The ulceration recurred spontaneously approximately 2-3 weeks prior to her presentation. The patient indicates that her health history has not changed since she was last treated in our facility. She has been approved for hyperbaric oxygen therapy treatment for her ulcer in her right groin caused by radionecrosis. Progress of Wound: Today is the 9th treatment of hyperbaric oxygen therapy.? The patient is scheduled for 30 treatments total. Tolerance of hyperbaric oxygen therapy: Hyperbaric oxygen treatment was administered as per the facility's protocol.? Hyperbaric oxygen therapy was administered at 2.0 CHHAYA in 100% oxygen for 90 minutes without air breaks.? The patient tolerated hyperbaric oxygen well, without complications or complaints. Upon emergence of the hyperbaric chamber, the patient's vital signs remained stable.? She was discharged in good condition. [facility] Medical History Bilateral cataracts Cancer Hemorrhoids Knee pain Radiation injury Home Medications famotidine 20 mg tablet 20 mg PO 06/20/17 [History Last Taken Unknown] pravastatin 20 mg tablet 20 mg PO DAILY 06/20/17 [History Last Taken Unknown] famotidine 40 mg tablet PO 90 days ##90 12/26/17 [History Last Taken Unknown] pravastatin 20 mg tablet PO 90 days ##90 12/26/17 [History Last Taken Unknown] Allergy/AdvReac Type Severity Reaction Status Date / Time No Known Allergies Allergy Verified 02/15/22 09:08 Family History Other Heart disease Hypertension Surgical History Hx of AKA (above knee amputation) Social History Smoking Status: Former smoker alcohol intake: current alcohol intake frequency: holidays/special occasions only Vital Signs Vital Signs Vital Signs: 05/24/22 08:59 05/24/22 10:19 Temperature 97.0 F L Temperature [Post Treatment] 97.9 F Temperature [Pre Treatment] 97.9 F Temperature Source Temporal Pulse Rate 84 Pulse Rate [Post Treatment] 60 Pulse Rate [Pre Treatment] 83 Respiratory Rate [Post Treatment] 17 Respiratory Rate [Pre Treatment] 16 Blood Pressure 170/89 H Blood Pressure [Post Treatment] 182/82 H Blood Pressure [Pre Treatment] 145/76 H Blood Pressure Mean 116 Blood Pressure Source Monitor Blood Pressure Position Sitting Blood Pressure Location Right Arm Weight Weight: 196 lb 1.696 oz Body Mass Index (BMI) 29.8 Physical Exam Const alert, oriented x3 and no apparent distress General Appearance: cooperative, comfortable, well kempt and well developed Orientation / Consciousness: awake, oriented to person, oriented to place and oriented to time HEENT normocephalic HEENT Narrative: tympanostomy tubes present bilaterally Eyes General Eye: normal appearance of both eyes Neck General: normal visual inspection and trachea midline Chest Chest: symmetrical chest wall rise Resp normal respiratory effort, normal air movement and no retractions Effort and Inspection: able to speak in complete sentences Skin Wound Narrative: A well-healed right above-knee amputation stump is noted. The wound in the patient's right groin persists, though appears to be smaller in size. There is a moderate amount of bioburden. Dimensions are documented elsewhere. Neuro oriented x3, CN's II-XII intact bilaterally and moves all extremities Sensorium / Orientation: awake, alert, oriented to person, oriented to place and oriented to time Psych mental status grossly normal, thought process normal, cooperative, affect normal and speech normal Debridement Note Debridement Note Wound debrided: Right groin Laterality: Right Type of Debridement: Excisional debridement Anesthesia Used: 5% Lidocaine Gel Depth: Down to and including healthy tissue and in the subcutaneous layer Percentage of wound debrided: 100 Instrument Used: 3mm curette Tissue Removed: Bioburden and fibrous, nonviable tissue Severity: Fat Layer Exposed Amount of bleeding with debridement: Mild Bleeding Controlled with: Compression and gauze Patient tolerated procedure: Patient tolerated procedure well Debridement Free Text: Swab cultures have been obtained today for aerobic and anaerobic bacterial growth. Post-Debridement Measurements and Additional Note: Post-Debridement Measurements/Treatment - Nurse 1 - General Ulcer Assessment Start: 05/10/22 11:21 Freq: Status: Active Protocol: MICHAEL Activity Type Activity Date Activity User E-sign Co-sign Detail Recorded Client Recorded Date Recorded By Document 05/10/22 11:22 DL [id number] 05/10/22 11:27 DL Document 05/17/22 08:53 AK [id number] 05/17/22 08:55 AK Document 05/24/22 08:59 KR [id number] 05/24/22 09:05 KR 05/10/22 05/17/22 05/24/22 11:22 08:53 08:59 - Today's Visit Information Type of service Follow-up Visit Follow-up Visit Follow-up 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/STATISTICAL MACHINE MECHANIC (Physician/STATISTICAL MACHINE MECHANIC (Physician/STATISTICAL MACHINE MECHANIC ) ) ) Arrival Mode Ambulatory Ambulatory Ambulatory Transfer Assistance None Patient Identification Verified (Name & Yes Yes Yes ) Patient Requires Transmission-Based No No Precautions Safety Precautions NA Height and Weight Body Mass Index (BMI) 29.8 29.8 29.8 BMI Classification Overweight Overweight Overweight Vital Signs Temperature (97.8 F-99.1 F) 97.8 F 97 F L 97.0 F L Temperature Source Temporal Temporal Temporal Pulse Rate (60-100) 85 90 84 Pulse Location Monitor Monitor Monitor Respiratory Rate (12-18) 18 Respiratory rate source Observation Blood Pressure (90/60-120/80) 138/78 H 156/88 H 170/89 H Blood Pressure Mean 98 110 116 Source Monitor Monitor Position Sitting Blood Pressure Location Right Arm History Since Last Visit- (Skip if this is Patient's initial visit) Have you changed medications since your No No No last visit? Any new allergies or adverse reactions No No No Had a fall/change in ADL's that may No No No increase risk of falls Signs or symptoms of abuse and/or No No No neglect since last visit Have you been in the hospital since your No No No last visit? Has dressing in place as prescribed Yes Yes Yes Has compression in place as prescribed N/A N/A N/A Has offloadiing in place as prescribed Yes N/A N/A Experienced any changes in pain level or No No No management Left Footwear Regular Shoe Regular Shoe Right Footwear Regular Shoe No Footwear Pain Scale: 0-10 Numeric Is Patient Pain Free? Yes Yes Yes WC - Nurse 1 - General Ulcer Measurement Start: 05/10/22 11:21 Freq: Status: Active Protocol: Activity Type Activity Date Activity User E-sign Co-sign Detail Recorded Client Recorded Date Recorded By Document 05/10/22 11:22 DL [id number] 05/10/22 11:27 DL Document 05/17/22 08:53 AK [id number] 05/17/22 08:55 AK Document 05/24/22 08:59 KR [id number] 05/24/22 09:05 KR 05/10/22 05/17/22 05/24/22 11:22 08:53 08:59 Wound Center Nurse 1 #11 R Groin -Combined with other wound No -Current Size (cm) - Length 2.2 2.6 1.4 -Current Size (cm) - Width 0.5 0.5 0.3 -Current Size (cm) - Depth 0.4 0.6 0.2 -Total Square Cm 1.10 1.30 0.42 -Date of Last Picture (Recall this 05/17/22 field) -Photo Taken Yes Yes -Tunneling No -Tunneling Position (O'clock) 6 -Tunneling Distance (cm) 0.2 -Undermining/Tunneling No -Circular Undermining No -Change in Wound Grade/Stage No -Exudate Amt Small Medium Small -Exudate Type Serosanguineous Serosanguineous Yellow/Green -Wound Margin Thickened & Distinct, Distinct, Rolled Under Outline Outline Attached Attached -Granulation Amt Small (1-33%) None Present (0 Small (1-33%) %) -Granulation Quality [place] N/A [place] -Slough/Fibrin Yes -Necrosis Amt Small (1-33%) Large (67-100%) Small (1-33%) -Necrotic Tissue Type Adherent Slough Adherent Slough Adherent Slough -Structure Exposed N/A N/A -Texture (Blanche-wound Skin Appearance) Scarring Assessed, Assessed, Scarring Scarring -Moisture (Blanche-wound Skin Appearance) No Abnormality Assessed, No Abnormality, Maceration Assessed -Color (Blanche-wound Skin Appearance) No Abnormality No Abnormality, No Abnormality, Assessed Assessed -Temperature (Blanche-wound Skin No Abnormality No Abnormality No Abnormality Appearance) (Pt Warm) (Pt Warm) (Pt Warm) -Tenderness on Palpation (Blanche-wound No No No Skin Appearance) -Ulcer Cleansing Rinsed/ Rinsed/ Rinsed/ Irrigated with Irrigated with Irrigated with Saline Saline Saline -Foul Odor after Cleansing No No No -Anesthetic Used 4% Lidocaine 4% Lidocaine 5% Lidocaine Solution Solution Gel WC - Nurse 2 - General Ulcer CM Notes Start: 05/10/22 11:21 Freq: Status: Active Protocol: Activity Type Activity Date Activity User E-sign Co-sign Detail Recorded Client Recorded Date Recorded By Document 05/10/22 12:13 PL [id number] 05/10/22 12:14 PL Document 05/17/22 11:36 PL [id number] 05/17/22 11:37 PL Document 05/24/22 11:45 PL [id number] 05/24/22 11:46 PL 05/10/22 05/17/22 05/24/22 12:13 11:36 11:45 Wound Center Nurse 2 #11 R Groin -Time 11:41 09:02 09:20 -Correct Patient Yes Yes Yes -Correct Side, Site, Position Yes Yes Yes -Correct Procedure Yes Yes Yes -Procedure Performed Yes Yes Yes -Type of Procedure Debridement Debridement Debridement -Clinical Debridement Subcutaneous Subcutaneous Subcutaneous -Tissue Removed Subcutaneous Subcutaneous Subcutaneous -Post Debridement (cm) - Length 1.1 2.6 1.4 -Post Debridement (cm) - Width 0.2 0.5 0.3 -Post Debridement (cm) - Depth 0.1 0.6 0.2 -Total Square (Post) (cm) 0.22 1.30 0.42 -Area of Debridement (cm) - Length 1.1 2.6 1.4 -Area of Debridement (cm) - Width 0.2 0.5 0.3 -Total Square (Area) (cm) 0.22 1.30 0.42 -Tunneling No No No -Undermining/Tunneling No No No -Circular Undermining No No No -Wound/Ulcer Outcome Not Healed Not Healed Not Healed -Ulcer Cleansing Rinsed/ Rinsed/ Rinsed/ Irrigated with Irrigated with Irrigated with Saline Saline Saline -Foul Odor after Cleansing No No No -Bioengineered Tissue No No No -Bleeding Controlled with Pressure Pressure Pressure -Treatment Response Procedure Procedure Procedure Tolerated Well Tolerated Well Tolerated Well -Debridement - Subq, 1st 20sq cm Yes Yes Yes Pain Scale: 0-10 Numeric Is Patient Pain Free? Yes Yes Yes WC - Nurse 3 - General Ulcer D/C NN Start: 05/10/22 11:21 Freq: Status: Active Protocol: Activity Type Activity Date Activity User E-sign Co-sign Detail Recorded Client Recorded Date Recorded By Document 05/10/22 11:45 [facility] [id number] 05/10/22 11:46 BMF Document 05/17/22 09:19 MW [id number] 05/17/22 09:20 MW Document 05/24/22 11:42 KR [id number] 05/24/22 11:42 KR 05/10/22 05/17/22 05/24/22 11:45 09:19 11:42 Wound Care Nurse 3 #11 R Groin -Ulcer Cleansing Rinsed/ Rinsed/ Rinsed/ Irrigated with Irrigated with Irrigated with Saline Saline Saline -Foul Odor after Cleansing No No -Negative Pressure Wound Therapy N/A -Primary Dressing Applied Other -Other Dressing PT DID OWN FIDENCIO Pichardo W/ [place] FROM HOME -Primary Dressing Covered/Secured with Dry Gauze, Dry Gauze, Secured with Secured with Tape Tape Treatment Response Procedure Procedure Tolerated Well Tolerated Well Pain Scale: 0-10 Numeric Is Patient Pain Free? Yes Yes Yes Teaching: Wound Center Dressing Your Wound -Person Taught Patient -Teaching Method Discussion, Demonstration -Response to teaching Verbalize understanding WC - Visit Discharge Discharge Condition Stable Stable Stable Ambulatory Status Ambulatory Ambulatory Ambulatory Transportation Private Auto Private Auto Private Auto Accompanied by self Medication Reconcilliation completed & No provided to patient/care provider Clinical Summary of Care Provided Yes Assessment/Plan Assessment/Plan (1) Soft tissue radionecrosis: CODE(S): L59.8 - Other specified disorders of the skin and subcutaneous tissue related to radiation; Y84.2 - Radiological procedure and radiotherapy as the cause of abnormal reaction of the patient, or of later complication, without mention of misadventure at the time of the procedure (2) Radiation injury: CODE(S): T66.XXXA - Radiation sickness, unspecified, initial encounter (3) soft tissue radiation injury: (4) Ulcer of right groin: CODE(S): L98.499 - Non-pressure chronic ulcer of skin of other sites with unspecified severity QUALIFIERS: Non-pressure ulcer stage: with fat layer exposed Qualified Code(s): L98.492 - Non-pressure chronic ulcer of skin of other sites with fat layer exposed (5) Amputee, above knee: CODE(S): Z89.619 - Acquired absence of unspecified leg above knee PLAN: Plan There has been mild improvement in the status of the patient's right groin wound. The wound is secondary to soft tissue radionecrosis. A culture of the patient's wound last week was positive for Staph aureus, 3+. Patient has been started on doxycycline 100 mg p.o. daily for a total of 10 days. It is hoped that the patient will show improvement with the completion of her antibiotic regimen, and with the progression of her hyperbaric oxygen treatments. The patient tolerated hyperbaric oxygen therapy well today, which will be continued as per her medical plan. This note was generated with REQQIation software. It may contain incorrect words, spelling, and punctuation that were not noted in checking the note before signing.
[2022-05-25 10:53] VITALS: BP 144/77; BP 152/90; PULSE 72; PULSE 80; RESP 16; RESP 17; TEMP 36.3
--- NOTE | 2022-05-25 12:17 | HBO.PN.PCM_ITS ---
History of Present Illness Date of Service: 05/25/22 Chief Complaint: Soft tissue radionecrosis of the right groin with open ul ceration History of Wound: This is a 67-year-old female with a long and complicated past medical history. The patient was diagnosed with melanoma of the right calf in the 1969's. 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 The patient underwent excision of her melanoma with lymphadenectomy in the right groin. She also underwent lengthy radiation treatments at the [facility] in [place], [place]. Melanoma recurred, and the patient was subsequently treated with monoclonal antibodies in 1984. 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 Treatment included local ulcer care and hyperbaric oxygen therapy. She underwent a total of nearly 90 treatments of hyperbaric oxygen therapy. It is known that she tolerated the therapies well, and derived significant benefit. 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 She has also undergone several more sessions of hyperbaric oxygen therapy. She also received a series of 10 EpiFix allografts in the course of previous treatment. Each of the patient's prior courses of treatment in our facility have been protracted, with difficulties encountered in achieving complete healing. Her most recent course of treatment ended with successful healing and discharge in February 2021. The patient presented at this time with a recurrence of her right groin ulceration, again thought to be secondary to soft tissue radiation injury. The ulceration recurred spontaneously approximately 2-3 weeks prior to her presentation. The patient indicates that her health history has not changed since she was last treated in our facility. She has been approved for hyperbaric oxygen therapy treatment for her ulcer in her right groin caused by radionecrosis. Progress of Wound: Today is the 10th treatment of hyperbaric oxygen therapy.? The patient is scheduled for 30 treatments total. Tolerance of hyperbaric oxygen therapy: Hyperbaric oxygen treatment was administered as per the facility's protocol.? Hyperbaric oxygen therapy was administered at 2.0 CHHAYA in 100% oxygen for 90 minutes without air breaks.? The patient tolerated hyperbaric oxygen well, without complications or complaints. Upon emergence of the hyperbaric chamber, the patient's vital signs remained stable.? She was discharged in good condition. Objective Data Objective Data Vital Signs: Vital Signs Temp Pulse Resp BP 97.4 F L 80 17 152/90 H 05/25/22 10:53 05/25/22 10:53 05/25/22 10:53 05/25/22 10:53 Weight: 196 lb 1.696 oz Body Mass Index (BMI) 29.8 Lab / Micro Data Micro: Microbiology 05/17/22 09:05 Wound Abcess - Groin Gram Stain - Final 05/17/22 09:05 Wound Abcess - Groin Wound Culture - Final Staphylococcus aureus 05/17/22 09:05 Wound Abcess - Groin Anaerobic Culture - Final Anaerobic cocci Exam Physical Exam Const alert and oriented x3 General Appearance: cooperative Resp normal respiratory effort Effort and Inspection: able to speak in complete sentences Cardio regular rate and regular rhythm Extremity Extremity Narrative: Here for soft tissue radiation necrosis Nursing Assessment and Debridement Post-Debridement Measurements and Additional Note: Post-Debridement Measurements/Treatment - Nurse 1 - General Ulcer Assessment Start: 05/10/22 11:21 Freq: Status: Active Protocol: KISHA.XOCHITL Activity Type Activity Date Activity User E-sign Co-sign Detail Recorded Client Recorded Date Recorded By Document 05/24/22 08:59 SONNY [id number] 05/24/22 09:05 SONNY 05/24/22 08:59 WC - Today's Visit Information Type of service Follow-up 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/ACCOUNT STRATEGIST ) 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 Any new allergies or adverse reactions No Had a fall/change in ADL's that may No increase risk of falls Signs or symptoms of abuse and/or No neglect since last visit Have you been in the hospital since your No last visit? Has dressing in place as prescribed Yes Has compression in place as prescribed N/A Has offloadiing in place as prescribed N/A Experienced any changes in pain level or No management Left Footwear Regular Shoe Right Footwear No Footwear Pain Scale: 0-10 Numeric Is Patient Pain Free? Yes WC - Nurse 1 - General Ulcer Measurement Start: 05/10/22 11:21 Freq: Status: Active Protocol: Activity Type Activity Date Activity User E-sign Co-sign Detail Recorded Client Recorded Date Recorded By Document 05/24/22 08:59 KR [id number] 05/24/22 09:05 KR 05/24/22 08:59 Wound Center Nurse 1 #11 R Groin -Current Size (cm) - Length 1.4 -Current Size (cm) - Width 0.3 -Current Size (cm) - Depth 0.2 -Total Square Cm 0.42 -Exudate Amt Small -Exudate Type Yellow/Green -Wound Margin Distinct, Outline Attached -Granulation Amt Small (1-33%) -Granulation Quality [place] -Necrosis Amt Small (1-33%) -Necrotic Tissue Type Adherent Slough -Texture (Blanche-wound Skin Appearance) Assessed, Scarring -Moisture (Blanche-wound Skin Appearance) No Abnormality, Assessed -Color (Blanche-wound Skin Appearance) No Abnormality, Assessed -Temperature (Blanche-wound Skin No Abnormality Appearance) (Pt Warm) -Tenderness on Palpation (Blanche-wound No Skin Appearance) -Ulcer Cleansing Rinsed/ Irrigated with Saline -Foul Odor after Cleansing No -Anesthetic Used 5% Lidocaine Gel WC - Nurse 2 - General Ulcer CM Notes Start: 05/10/22 11:21 Freq: Status: Active Protocol: Activity Type Activity Date Activity User E-sign Co-sign Detail Recorded Client Recorded Date Recorded By Document 05/24/22 11:45 PL [id number] 05/24/22 11:46 PL 05/24/22 11:45 Wound Center Nurse 2 -Time 09:20 -Correct Patient Yes -Correct Side, Site, Position Yes -Correct Procedure Yes -Procedure Performed Yes -Type of Procedure Debridement -Clinical Debridement Subcutaneous -Tissue Removed Subcutaneous -Post Debridement (cm) - Length 1.4 -Post Debridement (cm) - Width 0.3 -Post Debridement (cm) - Depth 0.2 -Total Square (Post) (cm) 0.42 -Area of Debridement (cm) - Length 1.4 -Area of Debridement (cm) - Width 0.3 -Total Square (Area) (cm) 0.42 -Tunneling No -Undermining/Tunneling No -Circular Undermining No -Wound/Ulcer Outcome Not Healed -Ulcer Cleansing Rinsed/ Irrigated with Saline -Foul Odor after Cleansing No -Bioengineered Tissue No -Bleeding Controlled with Pressure -Treatment Response Procedure Tolerated Well -Debridement - Subq, 1st 20sq cm Yes Pain Scale: 0-10 Numeric Is Patient Pain Free? Yes - Nurse 3 - General Ulcer D/C NN Start: 05/10/22 11:21 Freq: Status: Active Protocol: Activity Type Activity Date Activity User E-sign Co-sign Detail Recorded Client Recorded Date Recorded By Document 05/24/22 11:42 SONNY [id number] 05/24/22 11:42 SONNY 05/24/22 11:42 Wound Care Nurse 3 #11 R Groin -Ulcer Cleansing Rinsed/ Irrigated with Saline Pain Scale: 0-10 Numeric Is Patient Pain Free? Yes - Visit Discharge Discharge Condition Stable Ambulatory Status Ambulatory Transportation Private Auto Assessment/Plan Assessment/Plan (1) Soft tissue radionecrosis: CODE(S): L59.8 - Other specified disorders of the skin and subcutaneous tissue related to radiation; Y84.2 - Radiological procedure and radiotherapy as the cause of abnormal reaction of the patient, or of later complication, without mention of misadventure at the time of the procedure (2) Radiation injury: CODE(S): T66.XXXA - Radiation sickness, unspecified, initial encounter (3) soft tissue radiation injury: (4) Ulcer of right groin: CODE(S): L98.499 - Non-pressure chronic ulcer of skin of other sites with unspecified severity QUALIFIERS: Non-pressure ulcer stage: with fat layer exposed Qualified Code(s): L98.492 - Non-pressure chronic ulcer of skin of other sites with fat layer exposed (5) Amputee, above knee: CODE(S): Z89.619 - Acquired absence of unspecified leg above knee PLAN: Plan The patient tolerated hyperbaric oxygen therapy well which will be continued as per her medical plan. This note was generated with Dragon dictation software. It may contain incorrect words, spelling, and punctuation that were not noted in checking the note before signing.
[2022-05-26 12:04] VITALS: BP 148/70; BP 165/57; PULSE 70; PULSE 83; RESP 16; RESP 17; TEMP 36.3
--- NOTE | 2022-05-26 12:54 | HBO.PN.PCM_ITS ---
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 The patient was diagnosed with melanoma of the right calf in the 1969's. 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 The patient underwent excision of her melanoma with lymphadenectomy in the right groin. She also underwent lengthy radiation treatments at the [facility] in [place], [place]. Melanoma recurred, and the patient was subsequently treated with monoclonal antibodies in 1984. 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 Treatment included local ulcer care and hyperbaric oxygen therapy. She underwent a total of nearly 90 treatments of hyperbaric oxygen therapy. It is known that she tolerated the therapies well, and derived significant benefit. 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 She has also undergone several more sessions of hyperbaric oxygen therapy. She also received a series of 10 EpiFix allografts in the course of previous treatment. Each of the patient's prior courses of treatment in our facility have been protracted, with difficulties encountered in achieving complete healing. Her most recent course of treatment ended with successful healing and discharge in February 2021. The patient presented at this time with a recurrence of her right groin ulceration, again thought to be secondary to soft tissue radiation injury. The ulceration recurred spontaneously approximately 2-3 weeks prior to her presentation. The patient indicates that her health history has not changed since she was last treated in our facility. She has been approved for hyperbaric oxygen therapy treatment for her ulcer in her right groin caused by radionecrosis. Progress of Wound: Today is the 11th treatment of hyperbaric oxygen therapy.? The patient is scheduled for 30 treatments total. Tolerance of hyperbaric oxygen therapy: Hyperbaric oxygen treatment was administered as per the facility's protocol.? Hyperbaric oxygen therapy was administered at 2.0 CHHAYA in 100% oxygen for 90 minutes without air breaks.? The patient tolerated hyperbaric oxygen well, without complications or complaints. Upon emergence of the hyperbaric chamber, the patient's vital signs remained stable.? She was discharged in good condition. Objective Data Objective Data Vital Signs: Vital Signs Temp Pulse Resp BP 97.3 F L 83 17 165/57 H 05/26/22 12:04 05/26/22 12:04 05/26/22 12:04 05/26/22 12:04 Weight: 196 lb 1.696 oz Body Mass Index (BMI) 29.8 Lab / Micro Data Micro: Microbiology 05/17/22 09:05 Wound Abcess - Groin Gram Stain - Final 05/17/22 09:05 Wound Abcess - Groin Wound Culture - Final Staphylococcus aureus 05/17/22 09:05 Wound Abcess - Groin Anaerobic Culture - Final Anaerobic cocci Exam Physical Exam Const alert, oriented x3 and no apparent distress General Appearance: cooperative HEENT normocephalic HEENT Narrative: Able to visualize her ear tubes bilaterally Resp normal respiratory effort and clear to auscultation bilaterally Effort and Inspection: able to speak in complete sentences Psych affect normal Nursing Assessment and Debridement Post-Debridement Measurements and Additional Note: Post-Debridement Measurements/Treatment WC - Nurse 1 - General Ulcer Assessment Start: 05/10/22 11:21 Freq: Status: Active Protocol: MICHAEL Activity Type Activity Date Activity User E-sign Co-sign Detail Recorded Client Recorded Date Recorded By Document 05/24/22 08:59 SONNY [id number] 05/24/22 09:05 SONNY 05/24/22 08:59 - Today's Visit Information Type of service 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 Any new allergies or adverse reactions No Had a fall/change in ADL's that may No increase risk of falls Signs or symptoms of abuse and/or No neglect since last visit Have you been in the hospital since your No last visit? Has dressing in place as prescribed Yes Has compression in place as prescribed N/A Has offloadiing in place as prescribed N/A Experienced any changes in pain level or No management Left Footwear Regular Shoe Right Footwear No Footwear Pain Scale: 0-10 Numeric Is Patient Pain Free? Yes WC - Nurse 1 - General Ulcer Measurement Start: 05/10/22 11:21 Freq: Status: Active Protocol: Activity Type Activity Date Activity User E-sign Co-sign Detail Recorded Client Recorded Date Recorded By Document 05/24/22 08:59 [id number] 05/24/22 09:05 KR 05/24/22 08:59 Wound Center Nurse 1 #11 R Groin -Current Size (cm) - Length 1.4 -Current Size (cm) - Width 0.3 -Current Size (cm) - Depth 0.2 -Total Square Cm 0.42 -Exudate Amt Small -Exudate Type Yellow/Green -Wound Margin Distinct, Outline Attached -Granulation Amt Small (1-33%) -Granulation Quality Freer -Necrosis Amt Small (1-33%) -Necrotic Tissue Type Adherent Slough -Texture (Blanche-wound Skin Appearance) Assessed, Scarring -Moisture (Blanche-wound Skin Appearance) No Abnormality, Assessed -Color (Blanche-wound Skin Appearance) No Abnormality, Assessed -Temperature (Blanche-wound Skin No Abnormality Appearance) (Pt Warm) -Tenderness on Palpation (Blanche-wound No Skin Appearance) -Ulcer Cleansing Rinsed/ Irrigated with Saline -Foul Odor after Cleansing No -Anesthetic Used 5% Lidocaine Gel WC - Nurse 2 - General Ulcer CM Notes Start: 05/10/22 11:21 Freq: Status: Active Protocol: Activity Type Activity Date Activity User E-sign Co-sign Detail Recorded Client Recorded Date Recorded By Document 05/24/22 11:45 HITESH [id number] 05/24/22 11:46 PL 05/24/22 11:45 Wound Center Nurse 2 -Time 09:20 -Correct Patient Yes -Correct Side, Site, Position Yes -Correct Procedure Yes -Procedure Performed Yes -Type of Procedure Debridement -Clinical Debridement Subcutaneous -Tissue Removed Subcutaneous -Post Debridement (cm) - Length 1.4 -Post Debridement (cm) - Width 0.3 -Post Debridement (cm) - Depth 0.2 -Total Square (Post) (cm) 0.42 -Area of Debridement (cm) - Length 1.4 -Area of Debridement (cm) - Width 0.3 -Total Square (Area) (cm) 0.42 -Tunneling No -Undermining/Tunneling No -Circular Undermining No -Wound/Ulcer Outcome Not Healed -Ulcer Cleansing Rinsed/ Irrigated with Saline -Foul Odor after Cleansing No -Bioengineered Tissue No -Bleeding Controlled with Pressure -Treatment Response Procedure Tolerated Well -Debridement - Subq, 1st 20sq cm Yes Pain Scale: 0-10 Numeric Is Patient Pain Free? Yes - Nurse 3 - General Ulcer D/C NN Start: 05/10/22 11:21 Freq: Status: Active Protocol: Activity Type Activity Date Activity User E-sign Co-sign Detail Recorded Client Recorded Date Recorded By Document 05/24/22 11:42 SONNY [id number] 05/24/22 11:42 SONNY 05/24/22 11:42 Wound Care Nurse 3 #11 R Groin -Ulcer Cleansing Rinsed/ Irrigated with Saline Pain Scale: 0-10 Numeric Is Patient Pain Free? Yes WC - Visit Discharge Discharge Condition Stable Ambulatory Status Ambulatory Transportation Private Auto Charges/Coding Wound Center CF Procedures HBO Supervision: [id number] Hyperbaric Oxygen; supervision Assessment/Plan Assessment/Plan (1) Soft tissue radionecrosis: CODE(S): L59.8 - Other specified disorders of the skin and subcutaneous tissue related to radiation; Y84.2 - Radiological procedure and radiotherapy as the cause of abnormal reaction of the patient, or of later complication, without mention of misadventure at the time of the procedure (2) soft tissue radiation injury: (3) Ulcer of right groin: CODE(S): L98.499 - Non-pressure chronic ulcer of skin of other sites with unspecified severity QUALIFIERS: Non-pressure ulcer stage: with fat layer exposed Qualified Code(s): L98.492 - Non-pressure chronic ulcer of skin of other sites with fat layer exposed (4) Amputee, above knee: CODE(S): Z89.619 - Acquired absence of unspecified leg above knee PLAN: Plan The patient tolerated hyperbaric oxygen therapy well which will be continued as per her medical plan. This note was generated with [employer] dictation software. It may contain incorrect words, spelling, and punctuation that were not noted in checking the note before signing.
[2022-05-27 11:56] VITALS: BP 143/65; BP 152/83; PULSE 69; PULSE 80; RESP 16; RESP 18; TEMP 36.2
--- NOTE | 2022-05-27 13:08 | PCM.HBO.PN ---
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 The patient was diagnosed with melanoma of the right calf in the 1969's. 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 The patient underwent excision of her melanoma with lymphadenectomy in the right groin. She also underwent lengthy radiation treatments at the [facility] in [place], [place]. Melanoma recurred, and the patient was subsequently treated with monoclonal antibodies in 1984. 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 Treatment included local ulcer care and hyperbaric oxygen therapy. She underwent a total of nearly 90 treatments of hyperbaric oxygen therapy. It is known that she tolerated the therapies well, and derived significant benefit. 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 She has also undergone several more sessions of hyperbaric oxygen therapy. She also received a series of 10 EpiFix allografts in the course of previous treatment. Each of the patient's prior courses of treatment in our facility have been protracted, with difficulties encountered in achieving complete healing. Her most recent course of treatment ended with successful healing and discharge in February 2021. The patient presented at this time with a recurrence of her right groin ulceration, again thought to be secondary to soft tissue radiation injury. The ulceration recurred spontaneously approximately 2-3 weeks prior to her presentation. The patient indicates that her health history has not changed since she was last treated in our facility. She has been approved for hyperbaric oxygen therapy treatment for her ulcer in her right groin caused by radionecrosis. Progress of Wound: Today is the 12th treatment of hyperbaric oxygen therapy.? The patient is scheduled for 30 treatments total. Tolerance of hyperbaric oxygen therapy: Hyperbaric oxygen treatment was administered as per the facility's protocol.? Hyperbaric oxygen therapy was administered at 2.0 CHHAYA in 100% oxygen for 90 minutes without air breaks.? The patient tolerated hyperbaric oxygen well, without complications or complaints. Upon emergence of the hyperbaric chamber, the patient's vital signs remained stable.? She was discharged in good condition. Objective Data Objective Data Vital Signs: Vital Signs Temp Pulse Resp BP 97.2 F L 80 16 152/83 H 05/27/22 11:56 05/27/22 11:56 05/27/22 11:56 05/27/22 11:56 Weight: 88.952 kg Body Mass Index (BMI) 29.8 Lab / Micro Data Micro: Microbiology 05/17/22 09:05 Wound Abcess - Groin Gram Stain - Final 05/17/22 09:05 Wound Abcess - Groin Wound Culture - Final Staphylococcus aureus 05/17/22 09:05 Wound Abcess - Groin Anaerobic Culture - Final Anaerobic cocci Exam Physical Exam Const alert, oriented x3 and no apparent distress Psych mental status grossly normal, thought process normal, cooperative, affect normal and speech normal Assessment/Plan Assessment/Plan (1) Soft tissue radionecrosis: CODE(S): L59.8 - Other specified disorders of the skin and subcutaneous tissue related to radiation; Y84.2 - Radiological procedure and radiotherapy as the cause of abnormal reaction of the patient, or of later complication, without mention of misadventure at the time of the procedure (2) Radiation injury: CODE(S): T66.XXXA - Radiation sickness, unspecified, initial encounter (3) soft tissue radiation injury: (4) Ulcer of right groin: CODE(S): L98.499 - Non-pressure chronic ulcer of skin of other sites with unspecified severity QUALIFIERS: Non-pressure ulcer stage: with fat layer exposed Qualified Code(s): L98.492 - Non-pressure chronic ulcer of skin of other sites with fat layer exposed (5) Amputee, above knee: CODE(S): Z89.619 - Acquired absence of unspecified leg above knee PLAN: Plan The patient tolerated hyperbaric oxygen therapy well which will be continued as per her medical plan. This note was generated with [employer] software. It may contain incorrect words, spelling, and punctuation that were not noted in checking the note before signing.
--- NOTE | 2022-05-30 11:06 | HBO.PN.PCM_ITS ---
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 The patient was diagnosed with melanoma of the right calf in the 1969's. 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 The patient underwent excision of her melanoma with lymphadenectomy in the right groin. She also underwent lengthy radiation treatments at the [facility] in [place], [place]. Melanoma recurred, and the patient was subsequently treated with monoclonal antibodies in 1984. 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 Treatment included local ulcer care and hyperbaric oxygen therapy. She underwent a total of nearly 90 treatments of hyperbaric oxygen therapy. It is known that she tolerated the therapies well, and derived significant benefit. 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 She has also undergone several more sessions of hyperbaric oxygen therapy. She also received a series of 10 EpiFix allografts in the course of previous treatment. Each of the patient's prior courses of treatment in our facility have been protracted, with difficulties encountered in achieving complete healing. Her most recent course of treatment ended with successful healing and discharge in February 2021. The patient presented at this time with a recurrence of her right groin ulceration, again thought to be secondary to soft tissue radiation injury. The ulceration recurred spontaneously approximately 2-3 weeks prior to her presentation. The patient indicates that her health history has not changed since she was last treated in our facility. She has been approved for hyperbaric oxygen therapy treatment for her ulcer in her right groin caused by radionecrosis. Progress of Wound: Today is the 13th treatment of hyperbaric oxygen therapy.? The patient is scheduled for 30 treatments total. Tolerance of hyperbaric oxygen therapy: Hyperbaric oxygen treatment was administered as per the facility's protocol.? Hyperbaric oxygen therapy was administered at 2.0 CHHAYA in 100% oxygen for 90 minutes without air breaks.? The patient tolerated hyperbaric oxygen well, without complications or complaints. Upon emergence of the hyperbaric chamber, the patient's vital signs remained stable.? She was discharged in good condition. Objective Data Objective Data Vital Signs: Vital Signs Temp Pulse Resp BP 97.2 F L 80 16 152/83 H 05/27/22 11:56 05/27/22 11:56 05/27/22 11:56 05/27/22 11:56 Weight: 196 lb 1.696 oz Body Mass Index (BMI) 29.8 Lab / Micro Data Micro: Microbiology 05/17/22 09:05 Wound Abcess - Groin Gram Stain - Final 05/17/22 09:05 Wound Abcess - Groin Wound Culture - Final Staphylococcus aureus 05/17/22 09:05 Wound Abcess - Groin Anaerobic Culture - Final Anaerobic cocci Exam Physical Exam Const alert, oriented x3 and no apparent distress Resp normal respiratory effort and normal air movement Effort and Inspection: able to speak in complete sentences Cardio regular rate and regular rhythm Psych mental status grossly normal, thought process normal, cooperative, affect normal and speech normal Assessment/Plan Assessment/Plan (1) Soft tissue radionecrosis: CODE(S): L59.8 - Other specified disorders of the skin and subcutaneous tissue related to radiation; Y84.2 - Radiological procedure and radiotherapy as the cause of abnormal reaction of the patient, or of later complication, without mention of misadventure at the time of the procedure (2) Radiation injury: CODE(S): T66.XXXA - Radiation sickness, unspecified, initial encounter (3) soft tissue radiation injury: (4) Ulcer of right groin: CODE(S): L98.499 - Non-pressure chronic ulcer of skin of other sites with unspecified severity QUALIFIERS: Non-pressure ulcer stage: with fat layer exposed Qualified Code(s): L98.492 - Non-pressure chronic ulcer of skin of other sites with fat layer exposed (5) Amputee, above knee: CODE(S): Z89.619 - Acquired absence of unspecified leg above knee PLAN: Plan The patient tolerated hyperbaric oxygen therapy well which will be continued as per her medical plan. This note was generated with [employer] software. It may contain incorrect words, spelling, and punctuation that were not noted in checking the note before signing.
[2022-05-30 13:02] VITALS: BP 137/68; BP 151/84; PULSE 70; PULSE 84; RESP 18; TEMP 36.4
[2022-05-31 09:08] VITALS: BP 148/78; PULSE 89; TEMP 36.2; BMI 29.8
[2022-05-31 12:34] VITALS: BP 139/73; BP 143/71; PULSE 70; PULSE 85; RESP 16; RESP 18; TEMP 36.3
--- NOTE | 2022-05-31 16:11 | HP.PCM_ITS ---
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 The patient was diagnosed with melanoma of the right calf in the 1969's. 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 The patient underwent excision of her melanoma with lymphadenectomy in the right groin. She also underwent lengthy radiation treatments at the [facility] in [place], [place]. Melanoma recurred, and the patient was subsequently treated with monoclonal antibodies in 1984. 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 Treatment included local ulcer care and hyperbaric oxygen therapy. She underwent a total of nearly 90 treatments of hyperbaric oxygen therapy. It is known that she tolerated the therapies well, and derived significant benefit. 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 She has also undergone several more sessions of hyperbaric oxygen therapy. She also received a series of 10 EpiFix allografts in the course of previous treatment. Each of the patient's prior courses of treatment in our facility have been protracted, with difficulties encountered in achieving complete healing. Her most recent course of treatment ended with successful healing and discharge in February 2021. The patient presented at this time with a recurrence of her right groin ulceration, again thought to be secondary to soft tissue radiation injury. The ulceration recurred spontaneously approximately 2-3 weeks prior to her presentation. The patient indicates that her health history has not changed since she was last treated in our facility. She has been approved for hyperbaric oxygen therapy treatment for her ulcer in her right groin caused by radionecrosis. Progress of Wound: Today is the 14th treatment of hyperbaric oxygen therapy.? The patient is scheduled for 30 treatments total. Tolerance of hyperbaric oxygen therapy: Hyperbaric oxygen treatment was administered as per the facility's protocol.? Hyperbaric oxygen therapy was administered at 2.0 CHHAYA in 100% oxygen for 90 minutes without air breaks.? The patient tolerated hyperbaric oxygen well, without complications or complaints. Upon emergence of the hyperbaric chamber, the patient's vital signs remained stable.? She was discharged in good condition. [facility] Medical History Bilateral cataracts Cancer Hemorrhoids Knee pain Radiation injury Home Medications famotidine 20 mg tablet 20 mg PO 06/20/17 [History Last Taken Unknown] pravastatin 20 mg tablet 20 mg PO DAILY 06/20/17 [History Last Taken Unknown] famotidine 40 mg tablet PO 90 days ##90 12/26/17 [History Last Taken Unknown] pravastatin 20 mg tablet PO 90 days ##90 12/26/17 [History Last Taken Unknown] Allergy/AdvReac Type Severity Reaction Status Date / Time No Known Allergies Allergy Verified 02/15/22 09:08 Family History Other Heart disease Hypertension Surgical History Hx of AKA (above knee amputation) Social History Smoking Status: Former smoker alcohol intake: current alcohol intake frequency: holidays/special occasions only Vital Signs Vital Signs Vital Signs: 05/31/22 09:08 05/31/22 12:34 Temperature 97.2 F L Temperature [Post Treatment] 97.3 F L Temperature [Pre Treatment] 97.3 F L Temperature Source Temporal Pulse Rate 89 Pulse Rate [Post Treatment] 70 Pulse Rate [Pre Treatment] 85 Respiratory Rate [Post Treatment] 16 Respiratory Rate [Pre Treatment] 18 Blood Pressure 148/78 H Blood Pressure [Post Treatment] 139/73 H Blood Pressure [Pre Treatment] 143/71 H Blood Pressure Mean 101 Blood Pressure Source Monitor Weight Weight: 196 lb 1.696 oz Body Mass Index (BMI) 29.8 Physical Exam Const alert, oriented x3, no apparent distress, average body habitus and no limitations General Appearance: cooperative, comfortable, well kempt and well developed Exam Limitations: no limitations HEENT normocephalic, head/scalp atraumatic and hearing grossly normal bilaterally Head and Scalp: normocephalic Nose: external nose normal Eyes PERRL, EOMs intact bilaterally and conjunctivae normal General Eye: normal appearance of both eyes Neck full ROM Resp normal respiratory effort, normal air movement, no retractions and no use of accessory muscles Effort and Inspection: able to speak in complete sentences Cardio regular rate and regular rhythm Skin Wound Narrative: A well-healed right above-knee amputation stump is noted. A wound is noted in the right groin. There is no sign of infection or cellulitis. There is a moderate amount of bioburden. Dimensions are documented elsewhere. The wound appears to be smaller in size than noted previously. Neuro oriented x3, CN's II-XII intact bilaterally, moves all extremities and no focal motor deficits Sensorium / Orientation: awake, alert, oriented to person, oriented to place and oriented to time Psych mental status grossly normal, thought process normal, cooperative, affect normal and speech normal Debridement Note Debridement Note Wound debrided: Right groin Laterality: Right Type of Debridement: Excisional debridement Anesthesia Used: 5% Lidocaine Gel Depth: Down to and including healthy tissue and in the subcutaneous layer Percentage of wound debrided: 100 Instrument Used: 3mm curette Tissue Removed: Bioburden and fibrous, nonviable tissue Severity: Fat Layer Exposed Amount of bleeding with debridement: Mild Bleeding Controlled with: Compression and gauze Patient tolerated procedure: Patient tolerated procedure well Debridement Free Text: Swab cultures have been obtained today for aerobic and anaerobic bacterial growth. Post-Debridement Measurements and Additional Note: Post-Debridement Measurements/Treatment - Nurse 1 - General Ulcer Assessment Start: 05/10/22 11:21 Freq: Status: Active Protocol: KISHA.XOCHITL Activity Type Activity Date Activity User E-sign Co-sign Detail Recorded Client Recorded Date Recorded By Document 05/10/22 11:22 DL [id number] 05/10/22 11:27 DL Document 05/17/22 08:53 AK [id number] 05/17/22 08:55 AK Document 05/24/22 08:59 KR [id number] 05/24/22 09:05 KR Document 05/31/22 09:08 AK [id number] 05/31/22 09:17 AK 05/10/22 05/17/22 05/24/22 11:22 08:53 08:59 - Today's Visit Information Type of service Follow-up Visit Follow-up Visit Follow-up 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/HEALTH AND WELLNESS COACH (Physician/HEALTH AND WELLNESS COACH (Physician/HEALTH AND WELLNESS COACH ) ) ) Arrival Mode Ambulatory Ambulatory Ambulatory Transfer Assistance None Patient Identification Verified (Name & Yes Yes Yes ) Patient Requires Transmission-Based No No Precautions Safety Precautions NA Height and Weight Body Mass Index (BMI) 29.8 29.8 29.8 BMI Classification Overweight Overweight Overweight Vital Signs Temperature (97.8 F-99.1 F) 97.8 F 97 F L 97.0 F L Temperature Source Temporal Temporal Temporal Pulse Rate (60-100) 85 90 84 Pulse Location Monitor Monitor Monitor Respiratory Rate (12-18) 18 Respiratory rate source Observation Blood Pressure (90/60-120/80) 138/78 H 156/88 H 170/89 H Blood Pressure Mean 98 110 116 Source Monitor Monitor Position Sitting Blood Pressure Location Right Arm History Since Last Visit- (Skip if this is Patient's initial visit) Have you changed medications since your No No No last visit? Any new allergies or adverse reactions No No No Had a fall/change in ADL's that may No No No increase risk of falls Signs or symptoms of abuse and/or No No No neglect since last visit Have you been in the hospital since your No No No last visit? Has dressing in place as prescribed Yes Yes Yes Has compression in place as prescribed N/A N/A N/A Has offloadiing in place as prescribed Yes N/A N/A Experienced any changes in pain level or No No No management Left Footwear Regular Shoe Regular Shoe Right Footwear Regular Shoe No Footwear Pain Scale: 0-10 Numeric Is Patient Pain Free? Yes Yes Yes 05/31/22 09:08 WC - Today's Visit Information Type of service Follow-up 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/HEALTH AND WELLNESS COACH ) Arrival Mode Ambulatory Transfer Assistance Patient Identification Verified (Name & Yes ) Patient Requires Transmission-Based No Precautions Safety Precautions NA Height and Weight Body Mass Index (BMI) 29.8 BMI Classification Overweight Vital Signs Temperature (97.8 F-99.1 F) 97.2 F L Temperature Source Temporal Pulse Rate (60-100) 89 Pulse Location Monitor Respiratory Rate (12-18) Respiratory rate source Blood Pressure (90/60-120/80) 148/78 H Blood Pressure Mean 101 Source Monitor Position Blood Pressure Location History Since Last Visit- (Skip if this is Patient's initial visit) Have you changed medications since your No last visit? Any new allergies or adverse reactions No Had a fall/change in ADL's that may No increase risk of falls Signs or symptoms of abuse and/or No neglect since last visit Have you been in the hospital since your No last visit? Has dressing in place as prescribed Yes Has compression in place as prescribed N/A Has offloadiing in place as prescribed N/A Experienced any changes in pain level or No management Left Footwear Regular Shoe Right Footwear Regular Shoe Pain Scale: 0-10 Numeric Is Patient Pain Free? Yes WC - Nurse 1 - General Ulcer Measurement Start: 05/10/22 11:21 Freq: Status: Active Protocol: Activity Type Activity Date Activity User E-sign Co-sign Detail Recorded Client Recorded Date Recorded By Document 05/10/22 11:22 DL [id number] 05/10/22 11:27 DL Document 05/17/22 08:53 AK [id number] 05/17/22 08:55 AK Document 05/24/22 08:59 KR [id number] 05/24/22 09:05 KR Document 05/31/22 09:08 AK [id number] 05/31/22 09:17 AK 05/10/22 05/17/22 05/24/22 11:22 08:53 08:59 Wound Center Nurse 1 #11 R Groin -Combined with other wound No -Current Size (cm) - Length 2.2 2.6 1.4 -Current Size (cm) - Width 0.5 0.5 0.3 -Current Size (cm) - Depth 0.4 0.6 0.2 -Total Square Cm 1.10 1.30 0.42 -Date of Last Picture (Recall this 05/17/22 field) -Photo Taken Yes Yes -Tunneling No -Tunneling Position (O'clock) 6 -Tunneling Distance (cm) 0.2 -Undermining/Tunneling No -Circular Undermining No -Change in Wound Grade/Stage No -Exudate Amt Small Medium Small -Exudate Type Serosanguineous Serosanguineous Yellow/Green -Wound Margin Thickened & Distinct, Distinct, Rolled Under Outline Outline Attached Attached -Granulation Amt Small (1-33%) None Present (0 Small (1-33%) %) -Granulation Quality [place] N/A [place] -Slough/Fibrin Yes -Necrosis Amt Small (1-33%) Large (67-100%) Small (1-33%) -Necrotic Tissue Type Adherent Slough Adherent Slough Adherent Slough -Structure Exposed N/A N/A -Texture (Blanche-wound Skin Appearance) Scarring Assessed, Assessed, Scarring Scarring -Moisture (Blanche-wound Skin Appearance) No Abnormality Assessed, No Abnormality, Maceration Assessed -Color (Blanche-wound Skin Appearance) No Abnormality No Abnormality, No Abnormality, Assessed Assessed -Temperature (Blanche-wound Skin No Abnormality No Abnormality No Abnormality Appearance) (Pt Warm) (Pt Warm) (Pt Warm) -Tenderness on Palpation (Blanche-wound No No No Skin Appearance) -Ulcer Cleansing Rinsed/ Rinsed/ Rinsed/ Irrigated with Irrigated with Irrigated with Saline Saline Saline -Foul Odor after Cleansing No No No -Anesthetic Used 4% Lidocaine 4% Lidocaine 5% Lidocaine Solution Solution Gel 05/31/22 09:08 Wound Center Nurse 1 #11 R Groin -Combined with other wound No -Current Size (cm) - Length 1 -Current Size (cm) - Width 0.2 -Current Size (cm) - Depth 0.3 -Total Square Cm 0.2 -Date of Last Picture (Recall this field) -Photo Taken Yes -Tunneling No -Tunneling Position (O'clock) -Tunneling Distance (cm) -Undermining/Tunneling No -Circular Undermining No -Change in Wound Grade/Stage No -Exudate Amt Medium -Exudate Type Serosanguineous -Wound Margin Distinct, Outline Attached -Granulation Amt None Present (0 %) -Granulation Quality N/A -Slough/Fibrin Yes -Necrosis Amt Large (67-100%) -Necrotic Tissue Type Adherent Slough -Structure Exposed N/A -Texture (Blanche-wound Skin Appearance) Assessed, Scarring -Moisture (Blanche-wound Skin Appearance) No Abnormality, Assessed -Color (Blanche-wound Skin Appearance) No Abnormality, Assessed -Temperature (Blanche-wound Skin No Abnormality Appearance) (Pt Warm) -Tenderness on Palpation (Blanche-wound No Skin Appearance) -Ulcer Cleansing Rinsed/ Irrigated with Saline -Foul Odor after Cleansing No -Anesthetic Used 4% Lidocaine Solution WC - Nurse 2 - General Ulcer CM Notes Start: 11/01/22 11:21 Freq: Status: Active Protocol: Activity Type Activity Date Activity User E-sign Co-sign Detail Recorded Client Recorded Date Recorded By Document 05/10/22 12:13 PL [id number] 05/10/22 12:14 PL Document 05/17/22 11:36 PL [id number] 05/17/22 11:37 PL Document 05/24/22 11:45 PL [id number] 05/24/22 11:46 PL Document 05/31/22 12:01 PL [id number] 05/31/22 12:02 PL 05/10/22 05/17/22 05/24/22 12:13 11:36 11:45 Wound Center Nurse 2 #11 R Groin -Time 11:41 09:02 09:20 -Correct Patient Yes Yes Yes -Correct Side, Site, Position Yes Yes Yes -Correct Procedure Yes Yes Yes -Procedure Performed Yes Yes Yes -Type of Procedure Debridement Debridement Debridement -Clinical Debridement Subcutaneous Subcutaneous Subcutaneous -Tissue Removed Subcutaneous Subcutaneous Subcutaneous -Post Debridement (cm) - Length 1.1 2.6 1.4 -Post Debridement (cm) - Width 0.2 0.5 0.3 -Post Debridement (cm) - Depth 0.1 0.6 0.2 -Total Square (Post) (cm) 0.22 1.30 0.42 -Area of Debridement (cm) - Length 1.1 2.6 1.4 -Area of Debridement (cm) - Width 0.2 0.5 0.3 -Total Square (Area) (cm) 0.22 1.30 0.42 -Tunneling No No No -Undermining/Tunneling No No No -Circular Undermining No No No -Wound/Ulcer Outcome Not Healed Not Healed Not Healed -Ulcer Cleansing Rinsed/ Rinsed/ Rinsed/ Irrigated with Irrigated with Irrigated with Saline Saline Saline -Foul Odor after Cleansing No No No -Bioengineered Tissue No No No -Bleeding Controlled with Pressure Pressure Pressure -Treatment Response Procedure Procedure Procedure Tolerated Well Tolerated Well Tolerated Well -Debridement - Subq, 1st 20sq cm Yes Yes Yes Pain Scale: 0-10 Numeric Is Patient Pain Free? Yes Yes Yes 05/31/22 12:01 Wound Center Nurse 2 #11 R Groin -Time 09:28 -Correct Patient Yes -Correct Side, Site, Position Yes -Correct Procedure Yes -Procedure Performed Yes -Type of Procedure Debridement -Clinical Debridement Subcutaneous -Tissue Removed Subcutaneous -Post Debridement (cm) - Length 1.0 -Post Debridement (cm) - Width 0.2 -Post Debridement (cm) - Depth 0.3 -Total Square (Post) (cm) 0.20 -Area of Debridement (cm) - Length 1.0 -Area of Debridement (cm) - Width 0.2 -Total Square (Area) (cm) 0.20 -Tunneling No -Undermining/Tunneling No -Circular Undermining No -Wound/Ulcer Outcome Not Healed -Ulcer Cleansing Rinsed/ Irrigated with Saline -Foul Odor after Cleansing No -Bioengineered Tissue No -Bleeding Controlled with Pressure -Treatment Response Procedure Tolerated Well -Debridement - Subq, 1st 20sq cm Yes Pain Scale: 0-10 Numeric Is Patient Pain Free? Yes - Nurse 3 - General Ulcer D/C NN Start: 05/10/22 11:21 Freq: Status: Active Protocol: Activity Type Activity Date Activity User E-sign Co-sign Detail Recorded Client Recorded Date Recorded By Document 05/10/22 11:45 [facility] [id number] 05/10/22 11:46 BM Document 05/17/22 09:19 MW [id number] 05/17/22 09:20 MW Document 05/24/22 11:42 KR [id number] 05/24/22 11:42 KR Document 05/31/22 09:42 KR [id number] 05/31/22 09:42 KR 05/10/22 05/17/22 05/24/22 11:45 09:19 11:42 Wound Care Nurse 3 #11 R Groin -Ulcer Cleansing Rinsed/ Rinsed/ Rinsed/ Irrigated with Irrigated with Irrigated with Saline Saline Saline -Foul Odor after Cleansing No No -Negative Pressure Wound Therapy N/A -Primary Dressing Applied Other -Other Dressing PT DID OWN FIDENCIO Singh/ KINGSLEY FROM HOME -Primary Dressing Covered/Secured with Dry Gauze, Dry Gauze, Secured with Secured with Tape Tape Treatment Response Procedure Procedure Tolerated Well Tolerated Well Pain Scale: 0-10 Numeric Is Patient Pain Free? Yes Yes Yes Teaching: Wound Center Dressing Your Wound -Person Taught Patient -Teaching Method Discussion, Demonstration -Response to teaching Verbalize understanding - Visit Discharge Discharge Condition Stable Stable Stable Ambulatory Status Ambulatory Ambulatory Ambulatory Transportation Private Auto Private Auto Private Auto Accompanied by self Medication Reconcilliation completed & No provided to patient/care provider Clinical Summary of Care Provided Yes 05/31/22 09:42 Wound Care Nurse 3 #11 R Groin -Ulcer Cleansing Rinsed/ Irrigated with Saline -Foul Odor after Cleansing -Negative Pressure Wound Therapy -Primary Dressing Applied -Other Dressing -Primary Dressing Covered/Secured with Dry Gauze, Secured with Tape Treatment Response Pain Scale: 0-10 Numeric Is Patient Pain Free? Yes Teaching: Wound Center Dressing Your Wound -Person Taught -Teaching Method -Response to teaching WC - Visit Discharge Discharge Condition Stable Ambulatory Status Ambulatory Transportation Private Auto Accompanied by Medication Reconcilliation completed & provided to patient/care provider Clinical Summary of Care Provided Assessment/Plan Assessment/Plan (1) Soft tissue radionecrosis: CODE(S): L59.8 - Other specified disorders of the skin and subcutaneous tissue related to radiation; Y84.2 - Radiological procedure and radiotherapy as the cause of abnormal reaction of the patient, or of later complication, without mention of misadventure at the time of the procedure (2) Radiation injury: CODE(S): T66.XXXA - Radiation sickness, unspecified, initial encounter (3) soft tissue radiation injury: (4) Ulcer of right groin: CODE(S): L98.499 - Non-pressure chronic ulcer of skin of other sites with unspecified severity QUALIFIERS: Non-pressure ulcer stage: with fat layer exposed Qualified Code(s): L98.492 - Non-pressure chronic ulcer of skin of other sites with fat layer exposed (5) Amputee, above knee: CODE(S): Z89.619 - Acquired absence of unspecified leg above knee PLAN: Plan The patient tolerated hyperbaric oxygen therapy well which will be continued as per her medical plan. Recent cultures have been positive, and the patient is currently completing a prescription for doxycycline 100 mg p.o. daily for 10 days. She is to return each weekday for hyperbaric oxygen therapy treatments, and weekly for reassessment of her right groin wound, which is secondary to soft tissue radionecrosis. This note was generated with [employer] software. It may contain incorrect words, spelling, and punctuation that were not noted in checking the note before signing.
[2022-06-01 11:52] VITALS: BP 136/70; BP 159/92; PULSE 70; PULSE 77; RESP 16; RESP 17; TEMP 36.1; TEMP 36.7
--- NOTE | 2022-06-01 12:54 | HBO.PN.PCM_ITS ---
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 The patient was diagnosed with melanoma of the right calf in the 1969's. 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 The patient underwent excision of her melanoma with lymphadenectomy in the right groin. She also underwent lengthy radiation treatments at the [facility] in [place], [place]. Melanoma recurred, and the patient was subsequently treated with monoclonal antibodies in 1984. 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 Treatment included local ulcer care and hyperbaric oxygen therapy. She underwent a total of nearly 90 treatments of hyperbaric oxygen therapy. It is known that she tolerated the therapies well, and derived significant benefit. 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 She has also undergone several more sessions of hyperbaric oxygen therapy. She also received a series of 10 EpiFix allografts in the course of previous treatment. Each of the patient's prior courses of treatment in our facility have been protracted, with difficulties encountered in achieving complete healing. Her most recent course of treatment ended with successful healing and discharge in February 2021. The patient presented at this time with a recurrence of her right groin ulceration, again thought to be secondary to soft tissue radiation injury. The ulceration recurred spontaneously approximately 2-3 weeks prior to her presentation. The patient indicates that her health history has not changed since she was last treated in our facility. She has been approved for hyperbaric oxygen therapy treatment for her ulcer in her right groin caused by radionecrosis. Progress of Wound: Today is the 15th treatment of hyperbaric oxygen therapy.? The patient is scheduled for 30 treatments total. Tolerance of hyperbaric oxygen therapy: Hyperbaric oxygen treatment was administered as per the facility's protocol.? Hyperbaric oxygen therapy was administered at 2.0 CHHAYA in 100% oxygen for 90 minutes without air breaks.? The patient tolerated hyperbaric oxygen well, without complications or complaints. Upon emergence of the hyperbaric chamber, the patient's vital signs remained stable.? She was discharged in good condition. Subjective Subjective Tolerating treatments well Objective Data Objective Data No concerns doing well Vital Signs: Vital Signs Temp Pulse Resp BP 96.9 F L 77 16 159/92 H 06/01/22 11:52 06/01/22 11:52 06/01/22 11:52 06/01/22 11:52 Weight: 196 lb 1.696 oz Body Mass Index (BMI) 29.8 Lab / Micro Data Micro: Microbiology 05/17/22 09:05 Wound Abcess - Groin Gram Stain - Final 05/17/22 09:05 Wound Abcess - Groin Wound Culture - Final Staphylococcus aureus 05/17/22 09:05 Wound Abcess - Groin Anaerobic Culture - Final Anaerobic cocci Exam Physical Exam Const alert and oriented x3 General Appearance: cooperative Resp normal respiratory effort Effort and Inspection: able to speak in complete sentences Cardio regular rate and regular rhythm Extremity Extremity Narrative: Here for soft tissue radiation necrosis Nursing Assessment and Debridement Post-Debridement Measurements and Additional Note: Post-Debridement Measurements/Treatment - Nurse 1 - General Ulcer Assessment Start: 05/10/22 11:21 Freq: Status: Active Protocol: MICHAEL Activity Type Activity Date Activity User E-sign Co-sign Detail Recorded Client Recorded Date Recorded By Document 05/31/22 09:08 HAI [id number] 05/31/22 09:17 HAI 05/31/22 09:08 - Today's Visit Information Type of service Follow-up 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/KIER OPERATOR ) Arrival Mode Ambulatory Patient Identification Verified (Name & Yes ) Patient Requires Transmission-Based No Precautions Safety Precautions NA Height and Weight Body Mass Index (BMI) 29.8 BMI Classification Overweight Vital Signs Temperature (97.8 F-99.1 F) 97.2 F L Temperature Source Temporal Pulse Rate (60-100) 89 Pulse Location Monitor Blood Pressure (90/60-120/80) 148/78 H Blood Pressure Mean (mm Hg) 101 Source Monitor History Since Last Visit- (Skip if this is Patient's initial visit) Have you changed medications since your No last visit? Any new allergies or adverse reactions No Had a fall/change in ADL's that may No increase risk of falls Signs or symptoms of abuse and/or No neglect since last visit Have you been in the hospital since your No last visit? Has dressing in place as prescribed Yes Has compression in place as prescribed N/A Has offloadiing in place as prescribed N/A Experienced any changes in pain level or No management Left Footwear Regular Shoe Right Footwear Regular Shoe Pain Scale: 0-10 Numeric Is Patient Pain Free? Yes WC - Nurse 1 - General Ulcer Measurement Start: 05/10/22 11:21 Freq: Status: Active Protocol: Activity Type Activity Date Activity User E-sign Co-sign Detail Recorded Client Recorded Date Recorded By Document 05/31/22 09:08 AK [id number] 05/31/22 09:17 AK 05/31/22 09:08 Wound Center Nurse 1 #11 R Groin -Combined with other wound No -Current Size (cm) - Length 1 -Current Size (cm) - Width 0.2 -Current Size (cm) - Depth 0.3 -Total Square Cm 0.2 -Photo Taken Yes -Tunneling No -Undermining/Tunneling No -Circular Undermining No -Change in Wound Grade/Stage No -Exudate Amt Medium -Exudate Type Serosanguineous -Wound Margin Distinct, Outline Attached -Granulation Amt None Present (0 %) -Granulation Quality N/A -Slough/Fibrin Yes -Necrosis Amt Large (67-100%) -Necrotic Tissue Type Adherent Slough -Structure Exposed N/A -Texture (Blanche-wound Skin Appearance) Assessed, Scarring -Moisture (Blanche-wound Skin Appearance) No Abnormality, Assessed -Color (Blanche-wound Skin Appearance) No Abnormality, Assessed -Temperature (Blanche-wound Skin No Abnormality Appearance) (Pt Warm) -Tenderness on Palpation (Blanche-wound No Skin Appearance) -Ulcer Cleansing Rinsed/ Irrigated with Saline -Foul Odor after Cleansing No -Anesthetic Used 4% Lidocaine Solution WC - Nurse 2 - General Ulcer CM Notes Start: 05/10/22 11:21 Freq: Status: Active Protocol: Activity Type Activity Date Activity User E-sign Co-sign Detail Recorded Client Recorded Date Recorded By Document 05/31/22 12:01 PL [id number] 05/31/22 12:02 PL 05/31/22 12:01 Wound Center Nurse 2 -Time 09:28 -Correct Patient Yes -Correct Side, Site, Position Yes -Correct Procedure Yes -Procedure Performed Yes -Type of Procedure Debridement -Clinical Debridement Subcutaneous -Tissue Removed Subcutaneous -Post Debridement (cm) - Length 1.0 -Post Debridement (cm) - Width 0.2 -Post Debridement (cm) - Depth 0.3 -Total Square (Post) (cm) 0.20 -Area of Debridement (cm) - Length 1.0 -Area of Debridement (cm) - Width 0.2 -Total Square (Area) (cm) 0.20 -Tunneling No -Undermining/Tunneling No -Circular Undermining No -Wound/Ulcer Outcome Not Healed -Ulcer Cleansing Rinsed/ Irrigated with Saline -Foul Odor after Cleansing No -Bioengineered Tissue No -Bleeding Controlled with Pressure -Treatment Response Procedure Tolerated Well -Debridement - Subq, 1st 20sq cm Yes Pain Scale: 0-10 Numeric Is Patient Pain Free? Yes - Nurse 3 - General Ulcer D/C NN Start: 05/10/22 11:21 Freq: Status: Active Protocol: Activity Type Activity Date Activity User E-sign Co-sign Detail Recorded Client Recorded Date Recorded By Document 05/31/22 09:42 SONNY [id number] 05/31/22 09:42 SONNY 05/31/22 09:42 Wound Care Nurse 3 #11 R Groin -Ulcer Cleansing Rinsed/ Irrigated with Saline -Primary Dressing Covered/Secured with Dry Gauze, Secured with Tape Pain Scale: 0-10 Numeric Is Patient Pain Free? Yes - Visit Discharge Discharge Condition Stable Ambulatory Status Ambulatory Transportation Private Auto Assessment/Plan Assessment/Plan (1) Soft tissue radionecrosis: CODE(S): L59.8 - Other specified disorders of the skin and subcutaneous tissue related to radiation; Y84.2 - Radiological procedure and radiotherapy as the cause of abnormal reaction of the patient, or of later complication, without mention of misadventure at the time of the procedure (2) Radiation injury: CODE(S): T66.XXXA - Radiation sickness, unspecified, initial encounter (3) soft tissue radiation injury: (4) Ulcer of right groin: CODE(S): L98.499 - Non-pressure chronic ulcer of skin of other sites with unspecified severity QUALIFIERS: Non-pressure ulcer stage: with fat layer exposed Qualified Code(s): L98.492 - Non-pressure chronic ulcer of skin of other sites with fat layer exposed (5) Amputee, above knee: CODE(S): Z89.619 - Acquired absence of unspecified leg above knee PLAN: Plan The patient tolerated hyperbaric oxygen therapy well which will be continued as per her medical plan. Recent cultures have been positive, and the patient is currently completing a prescription for doxycycline 100 mg p.o. daily for 10 days. She is to return each weekday for hyperbaric oxygen therapy treatments, and weekly for reassessment of her right groin wound, which is secondary to soft tissue radionecrosis. This note was generated with [employer] software. It may contain incorrect words, spelling, and punctuation that were not noted in checking the note before signing.
[2022-06-06 11:34] VITALS: BP 119/59; BP 150/61; PULSE 68; PULSE 87; RESP 16; RESP 17; TEMP 35.8; TEMP 36.6
--- NOTE | 2022-06-06 16:42 | PCM.HBO.PN ---
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 The patient was diagnosed with melanoma of the right calf in the 1969's. 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 The patient underwent excision of her melanoma with lymphadenectomy in the right groin. She also underwent lengthy radiation treatments at the [facility] in [place], [place]. Melanoma recurred, and the patient was subsequently treated with monoclonal antibodies in 1984. 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 Treatment included local ulcer care and hyperbaric oxygen therapy. She underwent a total of nearly 90 treatments of hyperbaric oxygen therapy. It is known that she tolerated the therapies well, and derived significant benefit. 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 She has also undergone several more sessions of hyperbaric oxygen therapy. She also received a series of 10 EpiFix allografts in the course of previous treatment. Each of the patient's prior courses of treatment in our facility have been protracted, with difficulties encountered in achieving complete healing. Her most recent course of treatment ended with successful healing and discharge in February 2021. The patient presented at this time with a recurrence of her right groin ulceration, again thought to be secondary to soft tissue radiation injury. The ulceration recurred spontaneously approximately 2-3 weeks prior to her presentation. The patient indicates that her health history has not changed since she was last treated in our facility. She has been approved for hyperbaric oxygen therapy treatment for her ulcer in her right groin caused by radionecrosis. Progress of Wound: Today is the 16th treatment of hyperbaric oxygen therapy.? The patient is scheduled for 30 treatments total. Tolerance of hyperbaric oxygen therapy: Hyperbaric oxygen treatment was administered as per the facility's protocol.? Hyperbaric oxygen therapy was administered at 2.0 CHHAYA in 100% oxygen for 90 minutes without air breaks.? The patient tolerated hyperbaric oxygen well, without complications or complaints. Upon emergence of the hyperbaric chamber, the patient's vital signs remained stable.? She was discharged in good condition. Objective Data Objective Data Vital Signs: Vital Signs Temp Pulse Resp BP 96.5 F L 87 16 150/61 H 06/06/22 11:34 06/06/22 11:34 06/06/22 11:34 06/06/22 11:34 Weight: 196 lb 1.696 oz Body Mass Index (BMI) 29.8 Lab / Micro Data Micro: Microbiology 05/17/22 09:05 Wound Abcess - Groin Gram Stain - Final 05/17/22 09:05 Wound Abcess - Groin Wound Culture - Final Staphylococcus aureus 05/17/22 09:05 Wound Abcess - Groin Anaerobic Culture - Final Anaerobic cocci Exam Physical Exam Const alert, oriented x3 and no apparent distress General Appearance: cooperative HEENT normocephalic HEENT Narrative: Able to visualize her ear tubes bilaterally Eyes PERRL Resp normal respiratory effort and clear to auscultation bilaterally Effort and Inspection: able to speak in complete sentences Cardio regular rate and regular rhythm Psych affect normal Charges/Coding Wound Center CF Procedures HBO Supervision: [id number] Hyperbaric Oxygen; supervision Assessment/Plan Assessment/Plan (1) Soft tissue radionecrosis: CODE(S): L59.8 - Other specified disorders of the skin and subcutaneous tissue related to radiation; Y84.2 - Radiological procedure and radiotherapy as the cause of abnormal reaction of the patient, or of later complication, without mention of misadventure at the time of the procedure (2) Radiation injury: CODE(S): T66.XXXA - Radiation sickness, unspecified, initial encounter (3) soft tissue radiation injury: (4) Ulcer of right groin: CODE(S): L98.499 - Non-pressure chronic ulcer of skin of other sites with unspecified severity QUALIFIERS: Non-pressure ulcer stage: with fat layer exposed Qualified Code(s): L98.492 - Non-pressure chronic ulcer of skin of other sites with fat layer exposed (5) Amputee, above knee: CODE(S): Z89.619 - Acquired absence of unspecified leg above knee PLAN: Plan The patient tolerated hyperbaric oxygen therapy well which will be continued as per her medical plan.?She is to return each weekday for hyperbaric oxygen therapy treatments, and weekly for reassessment of her right groin wound, which is secondary to soft tissue radionecrosis.
[2022-06-07 09:15] VITALS: BP 154/84; PULSE 86; TEMP 36.2; BMI 29.8
--- NOTE | 2022-06-07 09:38 | HP.PCM_ITS ---
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 The patient was diagnosed with melanoma of the right calf in the 1969's. 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 The patient underwent excision of her melanoma with lymphadenectomy in the right groin. She also underwent lengthy radiation treatments at the [facility] in [place], [place]. Melanoma recurred, and the patient was subsequently treated with monoclonal antibodies in 1984. 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 Treatment included local ulcer care and hyperbaric oxygen therapy. She underwent a total of nearly 90 treatments of hyperbaric oxygen therapy. It is known that she tolerated the therapies well, and derived significant benefit. 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 She has also undergone several more sessions of hyperbaric oxygen therapy. She also received a series of 10 EpiFix allografts in the course of previous treatment. Each of the patient's prior courses of treatment in our facility have been protracted, with difficulties encountered in achieving complete healing. Her most recent course of treatment ended with successful healing and discharge in February 2021. The patient presented at this time with a recurrence of her right groin ulceration, again thought to be secondary to soft tissue radiation injury. The ulceration recurred spontaneously approximately 2-3 weeks prior to her presentation. The patient indicates that her health history has not changed since she was last treated in our facility. She has been approved for hyperbaric oxygen therapy treatment for her ulcer in her right groin caused by radionecrosis. [facility] Medical History Bilateral cataracts Cancer Hemorrhoids Knee pain Radiation injury Home Medications famotidine 20 mg tablet 20 mg PO 06/20/17 [History Last Taken Unknown] pravastatin 20 mg tablet 20 mg PO DAILY 06/20/17 [History Last Taken Unknown] famotidine 40 mg tablet PO 90 days ##90 12/26/17 [History Last Taken Unknown] pravastatin 20 mg tablet PO 90 days ##90 12/26/17 [History Last Taken Unknown] Allergy/AdvReac Type Severity Reaction Status Date / Time No Known Allergies Allergy Verified 02/15/22 09:08 Family History Other Heart disease Hypertension Surgical History Hx of AKA (above knee amputation) Social History Smoking Status: Former smoker alcohol intake: current alcohol intake frequency: holidays/special occasions only Vital Signs Vital Signs Vital Signs: 06/06/22 11:34 06/07/22 09:15 Temperature 97.2 F L Temperature [Post Treatment] 97.9 F Temperature [Pre Treatment] 96.5 F L Temperature Source Temporal Pulse Rate 86 Pulse Rate [Post Treatment] 68 Pulse Rate [Pre Treatment] 87 Respiratory Rate [Post Treatment] 17 Respiratory Rate [Pre Treatment] 16 Blood Pressure 154/84 H Blood Pressure [Post Treatment] 119/59 L Blood Pressure [Pre Treatment] 150/61 H Blood Pressure Mean 107 Blood Pressure Source Monitor Weight Weight: 196 lb 1.696 oz Body Mass Index (BMI) 29.8 Physical Exam Const alert, oriented x3, no apparent distress and well nourished General Appearance: cooperative, comfortable, well kempt and well developed Orientation / Consciousness: awake, oriented to person, oriented to place and oriented to time HEENT normocephalic, head/scalp atraumatic and hearing grossly normal bilaterally Head and Scalp: normal to inspection, normocephalic and atraumatic External Ear: external ears normal Eyes PERRL and EOMs intact bilaterally General Eye: normal appearance of both eyes Resp normal respiratory effort, normal air movement, no retractions and no use of accessory muscles Effort and Inspection: able to speak in complete sentences Extremity no calf tenderness General Extremity: Negative for clubbing or cyanosis Skin Wound Narrative: A well-healed right above-knee amputation stump is noted. The ulceration in the right groin persists. It appears to be slightly smaller in size. A moderate amount of bioburden persists. Dimensions are documented elsewhere. There is no sign of infection or cellulitis. Neuro oriented x3, CN's II-XII intact bilaterally, moves all extremities and no focal motor deficits Speech: speech normal Psych Appearance: grossly normal and appropriate Attitude: calm Activity / Motor Behavior: appropriate eye contact Speech: normal speech Mood & Affect: euthymic mood Thought Process: normal thought process Thought Content: normal thought content Attention / Concentration: attention grossly intact Debridement Note Debridement Note Wound debrided: Right groin Laterality: Right Type of Debridement: Excisional debridement Anesthesia Used: 5% Lidocaine Gel Depth: Down to and including healthy tissue and in the subcutaneous layer Percentage of wound debrided: 100 Instrument Used: 3mm curette Tissue Removed: Bioburden and fibrous, nonviable tissue Severity: Fat Layer Exposed Amount of bleeding with debridement: Mild Bleeding Controlled with: Compression and gauze Patient tolerated procedure: Patient tolerated procedure well Post-Debridement Measurements and Additional Note: Post-Debridement Measurements/Treatment WC - Nurse 1 - General Ulcer Assessment Start: 05/10/22 11:21 Freq: Status: Active Protocol: MICHAEL Activity Type Activity Date Activity User E-sign Co-sign Detail Recorded Client Recorded Date Recorded By Document 05/10/22 11:22 DL [id number] 05/10/22 11:27 DL Document 05/17/22 08:53 AK [id number] 05/17/22 08:55 AK Document 05/24/22 08:59 KR [id number] 05/24/22 09:05 KR Document 05/31/22 09:08 IL [id number] 05/31/22 09:17 AK Document 06/07/22 09:15 AK [id number] 06/07/22 09:19 AK 05/10/22 05/17/22 05/24/22 11:22 08:53 08:59 - Today's Visit Information Type of service Follow-up Visit Follow-up Visit Follow-up 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/[facility] (Physician/[facility] (Physician/[facility] ) ) ) Arrival Mode Ambulatory Ambulatory Ambulatory Transfer Assistance None Patient Identification Verified (Name & Yes Yes Yes ) Patient Requires Transmission-Based No No Precautions Safety Precautions NA Height and Weight Body Mass Index (BMI) 29.8 29.8 29.8 BMI Classification Overweight Overweight Overweight Vital Signs Temperature (97.8 F-99.1 F) 97.8 F 97 F L 97.0 F L Temperature Source Temporal Temporal Temporal Pulse Rate (60-100) 85 90 84 Pulse Location Monitor Monitor Monitor Respiratory Rate (12-18) 18 Respiratory rate source Observation Blood Pressure (90/60-120/80) 138/78 H 156/88 H 170/89 H Blood Pressure Mean 98 110 116 Source Monitor Monitor Position Sitting Blood Pressure Location Right Arm History Since Last Visit- (Skip if this is Patient's initial visit) Have you changed medications since your No No No last visit? Any new allergies or adverse reactions No No No Had a fall/change in ADL's that may No No No increase risk of falls Signs or symptoms of abuse and/or No No No neglect since last visit Have you been in the hospital since your No No No last visit? Has dressing in place as prescribed Yes Yes Yes Has compression in place as prescribed N/A N/A N/A Has offloadiing in place as prescribed Yes N/A N/A Experienced any changes in pain level or No No No management Left Footwear Regular Shoe Regular Shoe Right Footwear Regular Shoe No Footwear Pain Scale: 0-10 Numeric Is Patient Pain Free? Yes Yes Yes 05/31/22 06/07/22 09:08 09:15 WC - Today's Visit Information Type of service Follow-up Visit Follow-up 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/[facility] (Physician/[facility] ) ) Arrival Mode Ambulatory Ambulatory Transfer Assistance Patient Identification Verified (Name & Yes Yes ) Patient Requires Transmission-Based No No Precautions Safety Precautions NA NA Height and Weight Body Mass Index (BMI) 29.8 29.8 BMI Classification Overweight Overweight Vital Signs Temperature (97.8 F-99.1 F) 97.2 F L 97.2 F L Temperature Source Temporal Temporal Pulse Rate (60-100) 89 86 Pulse Location Monitor Monitor Respiratory Rate (12-18) Respiratory rate source Blood Pressure (90/60-120/80) 148/78 H 154/84 H Blood Pressure Mean 101 107 Source Monitor Monitor Position Blood Pressure Location History Since Last Visit- (Skip if this is Patient's initial visit) Have you changed medications since your No No last visit? Any new allergies or adverse reactions No No Had a fall/change in ADL's that may No No increase risk of falls Signs or symptoms of abuse and/or No No neglect since last visit Have you been in the hospital since your No Yes last visit? Has dressing in place as prescribed Yes No Has compression in place as prescribed N/A N/A Has offloadiing in place as prescribed N/A N/A Experienced any changes in pain level or No No management Left Footwear Regular Shoe Regular Shoe Right Footwear Regular Shoe Regular Shoe Pain Scale: 0-10 Numeric Is Patient Pain Free? Yes Yes WC - Nurse 1 - General Ulcer Measurement Start: 05/10/22 11:21 Freq: Status: Active Protocol: Activity Type Activity Date Activity User E-sign Co-sign Detail Recorded Client Recorded Date Recorded By Document 05/10/22 11:22 DL [id number] 05/10/22 11:27 DL Document 05/17/22 08:53 AK [id number] 05/17/22 08:55 AK Document 05/24/22 08:59 KR [id number] 05/24/22 09:05 KR Document 05/31/22 09:08 AK [id number] 05/31/22 09:17 AK Document 06/07/22 09:15 AK [id number] 06/07/22 09:19 AK 05/10/22 05/17/22 05/24/22 11:22 08:53 08:59 Wound Center Nurse 1 #11 R Groin -Combined with other wound No -Current Size (cm) - Length 2.2 2.6 1.4 -Current Size (cm) - Width 0.5 0.5 0.3 -Current Size (cm) - Depth 0.4 0.6 0.2 -Total Square Cm 1.10 1.30 0.42 -Date of Last Picture (Recall this 05/17/22 field) -Photo Taken Yes Yes -Tunneling No -Tunneling Position (O'clock) 6 -Tunneling Distance (cm) 0.2 -Undermining/Tunneling No -Circular Undermining No -Change in Wound Grade/Stage No -Exudate Amt Small Medium Small -Exudate Type Serosanguineous Serosanguineous Yellow/Green -Wound Margin Thickened & Distinct, Distinct, Rolled Under Outline Outline Attached Attached -Granulation Amt Small (1-33%) None Present (0 Small (1-33%) %) -Granulation Quality Talpa N/A Talpa -Slough/Fibrin Yes -Necrosis Amt Small (1-33%) Large (67-100%) Small (1-33%) -Necrotic Tissue Type Adherent Slough Adherent Slough Adherent Slough -Structure Exposed N/A N/A -Texture (Blanche-wound Skin Appearance) Scarring Assessed, Assessed, Scarring Scarring -Moisture (Blanche-wound Skin Appearance) No Abnormality Assessed, No Abnormality, Maceration Assessed -Color (Blanche-wound Skin Appearance) No Abnormality No Abnormality, No Abnormality, Assessed Assessed -Temperature (Blanche-wound Skin No Abnormality No Abnormality No Abnormality Appearance) (Pt Warm) (Pt Warm) (Pt Warm) -Tenderness on Palpation (Blanche-wound No No No Skin Appearance) -Ulcer Cleansing Rinsed/ Rinsed/ Rinsed/ Irrigated with Irrigated with Irrigated with Saline Saline Saline -Foul Odor after Cleansing No No No -Anesthetic Used 4% Lidocaine 4% Lidocaine 5% Lidocaine Solution Solution Gel 05/31/22 06/07/22 09:08 09:15 Wound Center Nurse 1 #11 R Groin -Combined with other wound No No -Current Size (cm) - Length 1 2.5 -Current Size (cm) - Width 0.2 0.4 -Current Size (cm) - Depth 0.3 0.3 -Total Square Cm 0.2 1.00 -Date of Last Picture (Recall this field) -Photo Taken Yes No -Tunneling No No -Tunneling Position (O'clock) -Tunneling Distance (cm) -Undermining/Tunneling No No -Circular Undermining No No -Change in Wound Grade/Stage No No -Exudate Amt Medium Medium -Exudate Type Serosanguineous Serosanguineous -Wound Margin Distinct, Distinct, Outline Outline Attached Attached -Granulation Amt None Present (0 None Present (0 %) %) -Granulation Quality N/A N/A -Slough/Fibrin Yes Yes -Necrosis Amt Large (67-100%) Large (67-100%) -Necrotic Tissue Type Adherent Slough Adherent Slough -Structure Exposed N/A N/A -Texture (Blanche-wound Skin Appearance) Assessed, Assessed, Scarring Scarring -Moisture (Blanche-wound Skin Appearance) No Abnormality, No Abnormality, Assessed Assessed -Color (Blanche-wound Skin Appearance) No Abnormality, No Abnormality, Assessed Assessed -Temperature (Blanche-wound Skin No Abnormality No Abnormality Appearance) (Pt Warm) (Pt Warm) -Tenderness on Palpation (Blanche-wound No No Skin Appearance) -Ulcer Cleansing Rinsed/ Rinsed/ Irrigated with Irrigated with Saline Saline -Foul Odor after Cleansing No No -Anesthetic Used 4% Lidocaine 4% Lidocaine Solution Solution WC - Nurse 2 - General Ulcer CM Notes Start: 05/10/22 11:21 Freq: Status: Active Protocol: Activity Type Activity Date Activity User E-sign Co-sign Detail Recorded Client Recorded Date Recorded By Document 05/10/22 12:13 PL [id number] 05/10/22 12:14 PL Document 05/17/22 11:36 PL [id number] 05/17/22 11:37 PL Document 05/24/22 11:45 PL [id number] 05/24/22 11:46 PL Document 05/31/22 12:01 PL [id number] 05/31/22 12:02 PL 05/10/22 05/17/22 05/24/22 12:13 11:36 11:45 Wound Center Nurse 2 #11 R Groin -Time 11:41 09:02 09:20 -Correct Patient Yes Yes Yes -Correct Side, Site, Position Yes Yes Yes -Correct Procedure Yes Yes Yes -Procedure Performed Yes Yes Yes -Type of Procedure Debridement Debridement Debridement -Clinical Debridement Subcutaneous Subcutaneous Subcutaneous -Tissue Removed Subcutaneous Subcutaneous Subcutaneous -Post Debridement (cm) - Length 1.1 2.6 1.4 -Post Debridement (cm) - Width 0.2 0.5 0.3 -Post Debridement (cm) - Depth 0.1 0.6 0.2 -Total Square (Post) (cm) 0.22 1.30 0.42 -Area of Debridement (cm) - Length 1.1 2.6 1.4 -Area of Debridement (cm) - Width 0.2 0.5 0.3 -Total Square (Area) (cm) 0.22 1.30 0.42 -Tunneling No No No -Undermining/Tunneling No No No -Circular Undermining No No No -Wound/Ulcer Outcome Not Healed Not Healed Not Healed -Ulcer Cleansing Rinsed/ Rinsed/ Rinsed/ Irrigated with Irrigated with Irrigated with Saline Saline Saline -Foul Odor after Cleansing No No No -Bioengineered Tissue No No No -Bleeding Controlled with Pressure Pressure Pressure -Treatment Response Procedure Procedure Procedure Tolerated Well Tolerated Well Tolerated Well -Debridement - Subq, 1st 20sq cm Yes Yes Yes Pain Scale: 0-10 Numeric Is Patient Pain Free? Yes Yes Yes 05/31/22 12:01 Wound Center Nurse 2 #11 R Groin -Time 09:28 -Correct Patient Yes -Correct Side, Site, Position Yes -Correct Procedure Yes -Procedure Performed Yes -Type of Procedure Debridement -Clinical Debridement Subcutaneous -Tissue Removed Subcutaneous -Post Debridement (cm) - Length 1.0 -Post Debridement (cm) - Width 0.2 -Post Debridement (cm) - Depth 0.3 -Total Square (Post) (cm) 0.20 -Area of Debridement (cm) - Length 1.0 -Area of Debridement (cm) - Width 0.2 -Total Square (Area) (cm) 0.20 -Tunneling No -Undermining/Tunneling No -Circular Undermining No -Wound/Ulcer Outcome Not Healed -Ulcer Cleansing Rinsed/ Irrigated with Saline -Foul Odor after Cleansing No -Bioengineered Tissue No -Bleeding Controlled with Pressure -Treatment Response Procedure Tolerated Well -Debridement - Subq, 1st 20sq cm Yes Pain Scale: 0-10 Numeric Is Patient Pain Free? Yes - Nurse 3 - General Ulcer D/C NN Start: 05/10/22 11:21 Freq: Status: Active Protocol: Activity Type Activity Date Activity User E-sign Co-sign Detail Recorded Client Recorded Date Recorded By Document 05/10/22 11:45 [facility] [id number] 05/10/22 11:46 BM Document 05/17/22 09:19 MW [id number] 05/17/22 09:20 MW Document 05/24/22 11:42 KR [id number] 05/24/22 11:42 KR Document 05/31/22 09:42 KR [id number] 05/31/22 09:42 KR 05/10/22 05/17/22 05/24/22 11:45 09:19 11:42 Wound Care Nurse 3 #11 R Groin -Ulcer Cleansing Rinsed/ Rinsed/ Rinsed/ Irrigated with Irrigated with Irrigated with Saline Saline Saline -Foul Odor after Cleansing No No -Negative Pressure Wound Therapy N/A -Primary Dressing Applied Other -Other Dressing PT DID OWN FIDENCIO Pichardo W/ [facility] FROM HOME -Primary Dressing Covered/Secured with Dry Gauze, Dry Gauze, Secured with Secured with Tape Tape Treatment Response Procedure Procedure Tolerated Well Tolerated Well Pain Scale: 0-10 Numeric Is Patient Pain Free? Yes Yes Yes Teaching: Wound Center Dressing Your Wound -Person Taught Patient -Teaching Method Discussion, Demonstration -Response to teaching Verbalize understanding WC - Visit Discharge Discharge Condition Stable Stable Stable Ambulatory Status Ambulatory Ambulatory Ambulatory Transportation Private Auto Private Auto Private Auto Accompanied by self Medication Reconcilliation completed & No provided to patient/care provider Clinical Summary of Care Provided Yes 05/31/22 09:42 Wound Care Nurse 3 #11 R Groin -Ulcer Cleansing Rinsed/ Irrigated with Saline -Foul Odor after Cleansing -Negative Pressure Wound Therapy -Primary Dressing Applied -Other Dressing -Primary Dressing Covered/Secured with Dry Gauze, Secured with Tape Treatment Response Pain Scale: 0-10 Numeric Is Patient Pain Free? Yes Teaching: Wound Center Dressing Your Wound -Person Taught -Teaching Method -Response to teaching WC - Visit Discharge Discharge Condition Stable Ambulatory Status Ambulatory Transportation Private Auto Accompanied by Medication Reconcilliation completed & provided to patient/care provider Clinical Summary of Care Provided Assessment/Plan Assessment/Plan (1) Soft tissue radionecrosis: CODE(S): L59.8 - Other specified disorders of the skin and subcutaneous tissue related to radiation; Y84.2 - Radiological procedure and radiotherapy as the cause of abnormal reaction of the patient, or of later complication, without mention of misadventure at the time of the procedure (2) Radiation injury: CODE(S): T66.XXXA - Radiation sickness, unspecified, initial encounter (3) soft tissue radiation injury: (4) Ulcer of right groin: CODE(S): L98.499 - Non-pressure chronic ulcer of skin of other sites with unspecified severity QUALIFIERS: Non-pressure ulcer stage: with fat layer exposed Qualified Code(s): L98.492 - Non-pressure chronic ulcer of skin of other sites with fat layer exposed (5) Amputee, above knee: CODE(S): Z89.619 - Acquired absence of unspecified leg above knee PLAN: Plan The patient continues to receive hyperbaric oxygen therapy treatments. We are to transition to the use of 1/4 inch Nu Gauze packing which will be moistened with saline with each administration. The Nu Gauze packing is to contact all portions of the ulcer surface, and changed daily. The site will be covered with gauze, and held in place with tape. The patient is to return in 1 week for reevaluation.
[2022-06-07 10:58] VITALS: BP 149/87; BP 154/84; PULSE 107; PULSE 78; RESP 16; RESP 17; TEMP 36.3; TEMP 36.6
--- NOTE | 2022-06-07 16:19 | PCM.HBO.PN ---
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 The patient was diagnosed with melanoma of the right calf in the 1969's. 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 The patient underwent excision of her melanoma with lymphadenectomy in the right groin. She also underwent lengthy radiation treatments at the [facility] in [place], [place]. Melanoma recurred, and the patient was subsequently treated with monoclonal antibodies in 1984. 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 Treatment included local ulcer care and hyperbaric oxygen therapy. She underwent a total of nearly 90 treatments of hyperbaric oxygen therapy. It is known that she tolerated the therapies well, and derived significant benefit. 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 She has also undergone several more sessions of hyperbaric oxygen therapy. She also received a series of 10 EpiFix allografts in the course of previous treatment. Each of the patient's prior courses of treatment in our facility have been protracted, with difficulties encountered in achieving complete healing. Her most recent course of treatment ended with successful healing and discharge in February 2021. The patient presented at this time with a recurrence of her right groin ulceration, again thought to be secondary to soft tissue radiation injury. The ulceration recurred spontaneously approximately 2-3 weeks prior to her presentation. The patient indicates that her health history has not changed since she was last treated in our facility. She has been approved for hyperbaric oxygen therapy treatment for her ulcer in her right groin caused by radionecrosis. Progress of Wound: Today is the 17th treatment of hyperbaric oxygen therapy.? The patient is scheduled for 30 treatments total. Tolerance of hyperbaric oxygen therapy: Hyperbaric oxygen treatment was administered as per the facility's protocol.? Hyperbaric oxygen therapy was administered at 2.0 CHHAYA in 100% oxygen for 90 minutes without air breaks.? The patient tolerated hyperbaric oxygen well, without complications or complaints. Upon emergence of the hyperbaric chamber, the patient's vital signs remained stable.? She was discharged in good condition. Objective Data Objective Data Vital Signs: Vital Signs Temp Pulse Resp BP 97.9 F 107 H 16 154/84 H 06/07/22 10:58 06/07/22 10:58 06/07/22 10:58 06/07/22 10:58 Weight: 196 lb 1.696 oz Body Mass Index (BMI) 29.8 Lab / Micro Data Micro: Microbiology 05/17/22 09:05 Wound Abcess - Groin Gram Stain - Final 05/17/22 09:05 Wound Abcess - Groin Wound Culture - Final Staphylococcus aureus 05/17/22 09:05 Wound Abcess - Groin Anaerobic Culture - Final Anaerobic cocci Exam Physical Exam Const alert, oriented x3, no apparent distress and well nourished General Appearance: cooperative and well developed HEENT normocephalic and EAC's normal Head and Scalp: atraumatic Eyes PERRL and EOMs intact bilaterally Neck supple Resp normal respiratory effort and no use of accessory muscles Effort and Inspection: able to speak in complete sentences Psych affect normal Appearance: grossly normal and well kempt Speech: normal speech Nursing Assessment and Debridement Post-Debridement Measurements and Additional Note: Post-Debridement Measurements/Treatment - Nurse 1 - General Ulcer Assessment Start: 05/10/22 11:21 Freq: Status: Active Protocol: WC.LOWEXT Activity Type Activity Date Activity User E-sign Co-sign Detail Recorded Client Recorded Date Recorded By Document 06/07/22 09:15 [place] [id number] 06/07/22 09:19 HAI 06/07/22 09:15 - Today's Visit Information Type of service 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 Any new allergies or adverse reactions No Had a fall/change in ADL's that may No increase risk of falls Signs or symptoms of abuse and/or No neglect since last visit Have you been in the hospital since your Yes last visit? Has dressing in place as prescribed No Has compression in place as prescribed N/A Has offloadiing in place as prescribed N/A Experienced any changes in pain level or No management Left Footwear Regular Shoe Right Footwear Regular Shoe Pain Scale: 0-10 Numeric Is Patient Pain Free? Yes KISHA - Nurse 1 - General Ulcer Measurement Start: 05/10/22 11:21 Freq: Status: Active Protocol: Activity Type Activity Date Activity User E-sign Co-sign Detail Recorded Client Recorded Date Recorded By Document 06/07/22 09:15 HAI [id number] 06/07/22 09:19 HAI 06/07/22 09:15 Wound Center Nurse 1 #11 R Groin -Combined with other wound No -Current Size (cm) - Length 2.5 -Current Size (cm) - Width 0.4 -Current Size (cm) - Depth 0.3 -Total Square Cm 1.00 -Photo Taken No -Tunneling No -Undermining/Tunneling No -Circular Undermining No -Change in Wound Grade/Stage No -Exudate Amt Medium -Exudate Type Serosanguineous -Wound Margin Distinct, Outline Attached -Granulation Amt None Present (0 %) -Granulation Quality N/A -Slough/Fibrin Yes -Necrosis Amt Large (67-100%) -Necrotic Tissue Type Adherent Slough -Structure Exposed N/A -Texture (Blanche-wound Skin Appearance) Assessed, Scarring -Moisture (Blanche-wound Skin Appearance) No Abnormality, Assessed -Color (Blanche-wound Skin Appearance) No Abnormality, Assessed -Temperature (Blanche-wound Skin No Abnormality Appearance) (Pt Warm) -Tenderness on Palpation (Blanche-wound No Skin Appearance) -Ulcer Cleansing Rinsed/ Irrigated with Saline -Foul Odor after Cleansing No -Anesthetic Used 4% Lidocaine Solution KISHA - Nurse 2 - General Ulcer CM Notes Start: 05/10/22 11:21 Freq: Status: Active Protocol: Activity Type Activity Date Activity User E-sign Co-sign Detail Recorded Client Recorded Date Recorded By Document 06/07/22 14:30 PL [id number] 06/07/22 14:31 PL 06/07/22 14:30 Wound Center Nurse 2 -Time 09:30 -Correct Patient Yes -Correct Side, Site, Position Yes -Correct Procedure Yes -Procedure Performed Yes -Type of Procedure Debridement -Clinical Debridement Subcutaneous -Tissue Removed Epidermis -Post Debridement (cm) - Length 2.5 -Post Debridement (cm) - Width 0.4 -Post Debridement (cm) - Depth 0.3 -Total Square (Post) (cm) 1.00 -Area of Debridement (cm) - Length 2.5 -Area of Debridement (cm) - Width 0.4 -Total Square (Area) (cm) 1.00 -Tunneling No -Undermining/Tunneling No -Circular Undermining No -Wound/Ulcer Outcome Not Healed -Ulcer Cleansing Rinsed/ Irrigated with Saline -Foul Odor after Cleansing No -Bioengineered Tissue No -Bleeding Controlled with Pressure -Treatment Response Procedure Tolerated Well -Debridement - Subq, 1st 20sq cm Yes Pain Scale: 0-10 Numeric Is Patient Pain Free? Yes - Nurse 3 - General Ulcer D/C NN Start: 05/10/22 11:21 Freq: Status: Active Protocol: Activity Type Activity Date Activity User E-sign Co-sign Detail Recorded Client Recorded Date Recorded By Document 06/07/22 09:50 MW [id number] 06/07/22 09:51 MW 06/07/22 09:50 Wound Care Nurse 3 #11 R Groin -Ulcer Cleansing Rinsed/ Irrigated with Saline -Foul Odor after Cleansing No -Negative Pressure Wound Therapy N/A -Primary Dressing Applied Nugauze, Iodoform -Primary Dressing Covered/Secured with Dry Gauze, Secured with Tape -Nugauze, Iodoform 1/4 1 Treatment Response Procedure Tolerated Well Pain Scale: 0-10 Numeric Is Patient Pain Free? Yes Teaching: Wound Center Dressing Your Wound -Person Taught Patient -Teaching Method Discussion, Demonstration -Response to teaching Verbalize understanding WC - Visit Discharge Discharge Condition Stable Ambulatory Status Ambulatory Transportation Private Auto Accompanied by self Medication Reconcilliation completed & No provided to patient/care provider Clinical Summary of Care Provided Yes Notes: HBO therapy treatment to follow appt Assessment/Plan Assessment/Plan (1) Soft tissue radionecrosis: CODE(S): L59.8 - Other specified disorders of the skin and subcutaneous tissue related to radiation; Y84.2 - Radiological procedure and radiotherapy as the cause of abnormal reaction of the patient, or of later complication, without mention of misadventure at the time of the procedure (2) Radiation injury: CODE(S): T66.XXXA - Radiation sickness, unspecified, initial encounter (3) soft tissue radiation injury: (4) Ulcer of right groin: CODE(S): L98.499 - Non-pressure chronic ulcer of skin of other sites with unspecified severity QUALIFIERS: Non-pressure ulcer stage: with fat layer exposed Qualified Code(s): L98.492 - Non-pressure chronic ulcer of skin of other sites with fat layer exposed (5) Amputee, above knee: CODE(S): Z89.619 - Acquired absence of unspecified leg above knee PLAN: The patient appears to be tolerating hyperbaric oxygen therapy well, which will be continued as per the patient's medical plan. PLAN: Plan The patient appears to be tolerating hyperbaric oxygen therapy well, which will be continued as per the patient's medical plan.
[2022-06-08 11:10] VITALS: BP 120/62; BP 148/80; PULSE 68; PULSE 89; RESP 16; RESP 18; TEMP 35.8; TEMP 36
--- NOTE | 2022-06-08 12:23 | HBO.PN.PCM_ITS ---
History of Present Illness Date of Service: 06/08/22 Chief Complaint: Soft tissue radionecrosis of the right groin with open ul ceration History of Wound: This is a 67-year-old female with a long and complicated past medical history. The patient was diagnosed with melanoma of the right calf in the 1969's. 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 The patient underwent excision of her melanoma with lymphadenectomy in the right groin. She also underwent lengthy radiation treatments at the [facility] in [place], [place]. Melanoma recurred, and the patient was subsequently treated with monoclonal antibodies in 1984. 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 Treatment included local ulcer care and hyperbaric oxygen therapy. She underwent a total of nearly 90 treatments of hyperbaric oxygen therapy. It is known that she tolerated the therapies well, and derived significant benefit. 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 She has also undergone several more sessions of hyperbaric oxygen therapy. She also received a series of 10 EpiFix allografts in the course of previous treatment. Each of the patient's prior courses of treatment in our facility have been protracted, with difficulties encountered in achieving complete healing. Her most recent course of treatment ended with successful healing and discharge in February 2021. The patient presented at this time with a recurrence of her right groin ulceration, again thought to be secondary to soft tissue radiation injury. The ulceration recurred spontaneously approximately 2-3 weeks prior to her presentation. The patient indicates that her health history has not changed since she was last treated in our facility. She has been approved for hyperbaric oxygen therapy treatment for her ulcer in her right groin caused by radionecrosis. Progress of Wound: Today is the 18th treatment of hyperbaric oxygen therapy.? The patient is scheduled for 30 treatments total. Tolerance of hyperbaric oxygen therapy: Hyperbaric oxygen treatment was administered as per the facility's protocol.? Hyperbaric oxygen therapy was administered at 2.0 CHHAYA in 100% oxygen for 90 minutes without air breaks.? The patient tolerated hyperbaric oxygen well, without complications or complaints. Upon emergence of the hyperbaric chamber, the patient's vital signs remained stable.? She was discharged in good condition. Subjective Subjective No concerns Objective Data Objective Data Doing well and tolerating HBO well we will continue with treatments as scheduled Vital Signs: Vital Signs Temp Pulse Resp BP 96.5 F L 89 16 148/80 H 06/08/22 11:10 06/08/22 11:10 06/08/22 11:10 06/08/22 11:10 Weight: 196 lb 1.696 oz Body Mass Index (BMI) 29.8 Lab / Micro Data Micro: Microbiology 05/17/22 09:05 Wound Abcess - Groin Gram Stain - Final 05/17/22 09:05 Wound Abcess - Groin Wound Culture - Final Staphylococcus aureus 05/17/22 09:05 Wound Abcess - Groin Anaerobic Culture - Final Anaerobic cocci Exam Physical Exam Const alert and oriented x3 General Appearance: cooperative Resp normal respiratory effort Effort and Inspection: able to speak in complete sentences Cardio regular rate and regular rhythm Extremity Extremity Narrative: Here for soft tissue radiation necrosis Nursing Assessment and Debridement Post-Debridement Measurements and Additional Note: Post-Debridement Measurements/Treatment WC - Nurse 1 - General Ulcer Assessment Start: 05/10/22 11:21 Freq: Status: Active Protocol: MICHAEL Activity Type Activity Date Activity User E-sign Co-sign Detail Recorded Client Recorded Date Recorded By Document 06/07/22 09:15 W[place] [id number] 06/07/22 09:19 AK 06/07/22 09:15 WC - Today's Visit Information 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 service 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 Any new allergies or adverse reactions No Had a fall/change in ADL's that may No increase risk of falls Signs or symptoms of abuse and/or No neglect since last visit Have you been in the hospital since your Yes last visit? Has dressing in place as prescribed No Has compression in place as prescribed N/A Has offloadiing in place as prescribed N/A Experienced any changes in pain level or No management Left Footwear Regular Shoe Right Footwear Regular Shoe Pain Scale: 0-10 Numeric Is Patient Pain Free? Yes WC - Nurse 1 - General Ulcer Measurement Start: 05/10/22 11:21 Freq: Status: Active Protocol: Activity Type Activity Date Activity User E-sign Co-sign Detail Recorded Client Recorded Date Recorded By Document 06/07/22 09:15 AK [id number] 06/07/22 09:19 AK 06/07/22 09:15 Wound Center Nurse 1 #11 R Groin -Combined with other wound No -Current Size (cm) - Length 2.5 -Current Size (cm) - Width 0.4 -Current Size (cm) - Depth 0.3 -Total Square Cm 1.00 -Photo Taken No -Tunneling No -Undermining/Tunneling No -Circular Undermining No -Change in Wound Grade/Stage No -Exudate Amt Medium -Exudate Type Serosanguineous -Wound Margin Distinct, Outline Attached -Granulation Amt None Present (0 %) -Granulation Quality N/A -Slough/Fibrin Yes -Necrosis Amt Large (67-100%) -Necrotic Tissue Type Adherent Slough -Structure Exposed N/A -Texture (Blanche-wound Skin Appearance) Assessed, Scarring -Moisture (Blanche-wound Skin Appearance) No Abnormality, Assessed -Color (Blanche-wound Skin Appearance) No Abnormality, Assessed -Temperature (Blanche-wound Skin No Abnormality Appearance) (Pt Warm) -Tenderness on Palpation (Blanche-wound No Skin Appearance) -Ulcer Cleansing Rinsed/ Irrigated with Saline -Foul Odor after Cleansing No -Anesthetic Used 4% Lidocaine Solution WC - Nurse 2 - General Ulcer CM Notes Start: 05/10/22 11:21 Freq: Status: Active Protocol: Activity Type Activity Date Activity User E-sign Co-sign Detail Recorded Client Recorded Date Recorded By Document 06/07/22 14:30 PL [id number] 06/07/22 14:31 PL 06/07/22 14:30 Wound Center Nurse 2 -Time 09:30 -Correct Patient Yes -Correct Side, Site, Position Yes -Correct Procedure Yes -Procedure Performed Yes -Type of Procedure Debridement -Clinical Debridement Subcutaneous -Tissue Removed Epidermis -Post Debridement (cm) - Length 2.5 -Post Debridement (cm) - Width 0.4 -Post Debridement (cm) - Depth 0.3 -Total Square (Post) (cm) 1.00 -Area of Debridement (cm) - Length 2.5 -Area of Debridement (cm) - Width 0.4 -Total Square (Area) (cm) 1.00 -Tunneling No -Undermining/Tunneling No -Circular Undermining No -Wound/Ulcer Outcome Not Healed -Ulcer Cleansing Rinsed/ Irrigated with Saline -Foul Odor after Cleansing No -Bioengineered Tissue No -Bleeding Controlled with Pressure -Treatment Response Procedure Tolerated Well -Debridement - Subq, 1st 20sq cm Yes Pain Scale: 0-10 Numeric Is Patient Pain Free? Yes WC - Nurse 3 - General Ulcer D/C NN Start: 05/10/22 11:21 Freq: Status: Active Protocol: Activity Type Activity Date Activity User E-sign Co-sign Detail Recorded Client Recorded Date Recorded By Document 06/07/22 09:50 MW [id number] 06/07/22 09:51 MW 06/07/22 09:50 Wound Care Nurse 3 #11 R Groin -Ulcer Cleansing Rinsed/ Irrigated with Saline -Foul Odor after Cleansing No -Negative Pressure Wound Therapy N/A -Primary Dressing Applied Nugauze, Iodoform -Primary Dressing Covered/Secured with Dry Gauze, Secured with Tape -Nugauze, Iodoform 1/4 1 Treatment Response Procedure Tolerated Well Pain Scale: 0-10 Numeric Is Patient Pain Free? Yes Teaching: Wound Center Dressing Your Wound -Person Taught Patient -Teaching Method Discussion, Demonstration -Response to teaching Verbalize understanding WC - Visit Discharge Discharge Condition Stable Ambulatory Status Ambulatory Transportation Private Auto Accompanied by self Medication Reconcilliation completed & No provided to patient/care provider Clinical Summary of Care Provided Yes Notes: HBO therapy treatment to follow appt Assessment/Plan Assessment/Plan (1) Soft tissue radionecrosis: CODE(S): L59.8 - Other specified disorders of the skin and subcutaneous tissue related to radiation; Y84.2 - Radiological procedure and radiotherapy as the cause of abnormal reaction of the patient, or of later complication, without mention of misadventure at the time of the procedure (2) Radiation injury: CODE(S): T66.XXXA - Radiation sickness, unspecified, initial encounter (3) soft tissue radiation injury: (4) Ulcer of right groin: CODE(S): L98.499 - Non-pressure chronic ulcer of skin of other sites with unspecified severity QUALIFIERS: Non-pressure ulcer stage: with fat layer exposed Qualified Code(s): L98.492 - Non-pressure chronic ulcer of skin of other sites with fat layer exposed (5) Amputee, above knee: CODE(S): Z89.619 - Acquired absence of unspecified leg above knee PLAN: Plan The patient tolerated hyperbaric oxygen therapy well which will be continued as per her medical plan. Recent cultures have been positive, and the patient is currently completing a prescription for doxycycline 100 mg p.o. daily for 10 days. She is to return each weekday for hyperbaric oxygen therapy treatments, and weekly for reassessment of her right groin wound, which is secondary to soft tissue radionecrosis. This note was generated with [employer]it[employer]ation software. It may contain incorrect words, spelling, and punctuation that were not noted in checking the note before signing.
== END 2022-06-08 23:59 | disposition home or self-care (01) ==
LOC: WC 10:30
PROVIDERS: PCP Family Medicine; Visit Provider Surgery
DX: L59.8 Other specified disorders of the skin and subcutaneous tissue related to radiation (principal); Z89.619 Acquired absence of unspecified leg above knee; L98.492 Non-pressure chronic ulcer of skin of other sites with fat layer exposed; Z87.891 Personal history of nicotine dependence; E78.5 Hyperlipidemia, unspecified; T66.XXXA Radiation sickness, unspecified, initial encounter; Z86.14 Personal history of Methicillin resistant Staphylococcus aureus infection; Z85.820 Personal history of malignant melanoma of skin; Z79.899 Other long term (current) drug therapy; Y84.2 Radiological procedure and radiotherapy as the cause of abnormal reaction of the patient, or of later complication, without mention of misadventure at the time of the procedure
CPT/HCPCS: 11042; 87070; 87075; 87077; 87186; 87205; 99183; G0277

== ENCOUNTER 2022-07-06 10:30 | Outpatient (RCR) | payer MEDICARE, OTHER, SELFPAY ==
[2022-06-09 00:16] VITALS: BP 120/62; PULSE 68; RESP 18; TEMP 36; BMI 29.8
[2022-06-09 11:29] VITALS: BP 127/86; BP 143/76; PULSE 76; PULSE 82; RESP 16; RESP 18; TEMP 35.6; TEMP 36.3
--- NOTE | 2022-06-09 13:18 | HBO.PN.PCM_ITS ---
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 The patient was diagnosed with melanoma of the right calf in the 1969's. 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 The patient underwent excision of her melanoma with lymphadenectomy in the right groin. She also underwent lengthy radiation treatments at the [facility] in [place], [place]. Melanoma recurred, and the patient was subsequently treated with monoclonal antibodies in 1984. 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 Treatment included local ulcer care and hyperbaric oxygen therapy. She underwent a total of nearly 90 treatments of hyperbaric oxygen therapy. It is known that she tolerated the therapies well, and derived significant benefit. 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 She has also undergone several more sessions of hyperbaric oxygen therapy. She also received a series of 10 EpiFix allografts in the course of previous treatment. Each of the patient's prior courses of treatment in our facility have been protracted, with difficulties encountered in achieving complete healing. Her most recent course of treatment ended with successful healing and discharge in February 2021. The patient presented at this time with a recurrence of her right groin ulceration, again thought to be secondary to soft tissue radiation injury. The ulceration recurred spontaneously approximately 2-3 weeks prior to her presentation. The patient indicates that her health history has not changed since she was last treated in our facility. She has been approved for hyperbaric oxygen therapy treatment for her ulcer in her right groin caused by radionecrosis. Progress of Wound: Today is the 19th treatment of hyperbaric oxygen therapy.? The patient is scheduled for 30 treatments total. Tolerance of hyperbaric oxygen therapy: Hyperbaric oxygen treatment was administered as per the facility's protocol.? Hyperbaric oxygen therapy was administered at 2.0 CHHAYA in 100% oxygen for 90 minutes without air breaks.? The patient tolerated hyperbaric oxygen well, without complications or complaints. Upon emergence of the hyperbaric chamber, the patient's vital signs remained stable.? She was discharged in good condition. Objective Data Objective Data Vital Signs: Vital Signs Temp Pulse Resp BP 96.0 F L 82 16 143/76 H 06/09/22 11:29 06/09/22 11:29 06/09/22 11:29 06/09/22 11:29 Weight: 196 lb 1.696 oz Body Mass Index (BMI) 29.8 Exam Physical Exam Const alert, oriented x3 and no apparent distress General Appearance: cooperative HEENT normocephalic HEENT Narrative: Able to visualize her ear tubes bilaterally Resp normal respiratory effort and clear to auscultation bilaterally Effort and Inspection: able to speak in complete sentences Psych affect normal Charges/Coding Wound Center CF Procedures HBO Supervision: [id number] Hyperbaric Oxygen; supervision Assessment/Plan Assessment/Plan (1) Soft tissue radionecrosis: CODE(S): L59.8 - Other specified disorders of the skin and subcutaneous tissue related to radiation; Y84.2 - Radiological procedure and radiotherapy as the cause of abnormal reaction of the patient, or of later complication, without mention of misadventure at the time of the procedure (2) soft tissue radiation injury: (3) Ulcer of right groin: CODE(S): L98.499 - Non-pressure chronic ulcer of skin of other sites with unspecified severity QUALIFIERS: Non-pressure ulcer stage: with fat layer exposed Qualified Code(s): L98.492 - Non-pressure chronic ulcer of skin of other sites with fat layer exposed (4) Amputee, above knee: CODE(S): Z89.619 - Acquired absence of unspecified leg above knee PLAN: Plan The patient tolerated hyperbaric oxygen therapy well which will be continued as per her medical plan. This note was generated with [employer] software. It may contain incorrect words, spelling, and punctuation that were not noted in checking the note before signing.
[2022-06-10 11:25] VITALS: BP 132/67; PULSE 70; RESP 18; TEMP 36.3
--- NOTE | 2022-06-10 15:39 | HBO.PN.PCM_ITS ---
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 The patient was diagnosed with melanoma of the right calf in the 1969's. 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 The patient underwent excision of her melanoma with lymphadenectomy in the right groin. She also underwent lengthy radiation treatments at the [facility] in [place], [place]. Melanoma recurred, and the patient was subsequently treated with monoclonal antibodies in 1984. 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 Treatment included local ulcer care and hyperbaric oxygen therapy. She underwent a total of nearly 90 treatments of hyperbaric oxygen therapy. It is known that she tolerated the therapies well, and derived significant benefit. 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 She has also undergone several more sessions of hyperbaric oxygen therapy. She also received a series of 10 EpiFix allografts in the course of previous treatment. Each of the patient's prior courses of treatment in our facility have been protracted, with difficulties encountered in achieving complete healing. Her most recent course of treatment ended with successful healing and discharge in February 2021. The patient presented at this time with a recurrence of her right groin ulceration, again thought to be secondary to soft tissue radiation injury. The ulceration recurred spontaneously approximately 2-3 weeks prior to her presentation. The patient indicates that her health history has not changed since she was last treated in our facility. She has been approved for hyperbaric oxygen therapy treatment for her ulcer in her right groin caused by radionecrosis. Progress of Wound: Today is the 20th treatment of hyperbaric oxygen therapy.? The patient is scheduled for 30 treatments total. Tolerance of hyperbaric oxygen therapy: Hyperbaric oxygen treatment was administered as per the facility's protocol.? Hyperbaric oxygen therapy was administered at 2.0 CHHAYA in 100% oxygen for 90 minutes without air breaks.? The patient tolerated hyperbaric oxygen well, without complications or complaints. Upon emergence of the hyperbaric chamber, the patient's vital signs remained stable.? She was discharged in good condition. Objective Data Objective Data Vital Signs: Vital Signs Temp Pulse Resp BP 97.4 F L 70 18 132/67 H 06/10/22 11:25 06/10/22 11:25 06/10/22 11:25 06/10/22 11:25 Weight: 88.952 kg Body Mass Index (BMI) 29.8 Assessment/Plan Assessment/Plan (1) Radiation injury: CODE(S): T66.XXXA - Radiation sickness, unspecified, initial encounter (2) History of melanoma: CODE(S): Z85.820 - Personal history of malignant melanoma of skin (3) Soft tissue radionecrosis: CODE(S): L59.8 - Other specified disorders of the skin and subcutaneous tissue related to radiation; Y84.2 - Radiological procedure and radiotherapy as the cause of abnormal reaction of the patient, or of later complication, without mention of misadventure at the time of the procedure PLAN: Plan The patient appears to be tolerating hyperbaric oxygen therapy well, which will be continued as per their medical treatment plan.
[2022-06-13 12:29] VITALS: BP 147/66; BP 166/78; PULSE 70; PULSE 82; RESP 17; RESP 18; TEMP 35.9; TEMP 36.6
--- NOTE | 2022-06-13 14:45 | PCM.HBO.PN ---
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 The patient was diagnosed with melanoma of the right calf in the 1969's. 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 The patient underwent excision of her melanoma with lymphadenectomy in the right groin. She also underwent lengthy radiation treatments at the [facility] in [place], [place]. Melanoma recurred, and the patient was subsequently treated with monoclonal antibodies in 1984. 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 Treatment included local ulcer care and hyperbaric oxygen therapy. She underwent a total of nearly 90 treatments of hyperbaric oxygen therapy. It is known that she tolerated the therapies well, and derived significant benefit. 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 She has also undergone several more sessions of hyperbaric oxygen therapy. She also received a series of 10 EpiFix allografts in the course of previous treatment. Each of the patient's prior courses of treatment in our facility have been protracted, with difficulties encountered in achieving complete healing. Her most recent course of treatment ended with successful healing and discharge in February 2021. The patient presented at this time with a recurrence of her right groin ulceration, again thought to be secondary to soft tissue radiation injury. The ulceration recurred spontaneously approximately 2-3 weeks prior to her presentation. The patient indicates that her health history has not changed since she was last treated in our facility. She has been approved for hyperbaric oxygen therapy treatment for her ulcer in her right groin caused by radionecrosis. Progress of Wound: Today is the 21st treatment of hyperbaric oxygen therapy.? The patient is scheduled for 30 treatments total. Tolerance of hyperbaric oxygen therapy: Hyperbaric oxygen treatment was administered as per the facility's protocol.? Hyperbaric oxygen therapy was administered at 2.0 CHHAYA in 100% oxygen for 90 minutes without air breaks.? The patient tolerated hyperbaric oxygen well, without complications or complaints. Upon emergence of the hyperbaric chamber, the patient's vital signs remained stable.? She was discharged in good condition. Objective Data Objective Data Vital Signs: Vital Signs Temp Pulse Resp BP 96.6 F L 82 18 166/78 H 06/13/22 12:29 06/13/22 12:29 06/13/22 12:29 06/13/22 12:29 Weight: 196 lb 1.696 oz Body Mass Index (BMI) 29.8 Exam Physical Exam Const alert, oriented x3 and no apparent distress General Appearance: cooperative HEENT normocephalic HEENT Narrative: Able to visualize her ear tubes bilaterally Eyes PERRL Resp normal respiratory effort and clear to auscultation bilaterally Effort and Inspection: able to speak in complete sentences Cardio regular rate and regular rhythm Psych affect normal Charges/Coding Wound Center CF Procedures HBO Supervision: [id number] Hyperbaric Oxygen; supervision Assessment/Plan Assessment/Plan (1) Soft tissue radionecrosis: CODE(S): L59.8 - Other specified disorders of the skin and subcutaneous tissue related to radiation; Y84.2 - Radiological procedure and radiotherapy as the cause of abnormal reaction of the patient, or of later complication, without mention of misadventure at the time of the procedure (2) soft tissue radiation injury: (3) Ulcer of right groin: CODE(S): L98.499 - Non-pressure chronic ulcer of skin of other sites with unspecified severity QUALIFIERS: Non-pressure ulcer stage: with fat layer exposed Qualified Code(s): L98.492 - Non-pressure chronic ulcer of skin of other sites with fat layer exposed (4) Amputee, above knee: CODE(S): Z89.619 - Acquired absence of unspecified leg above knee PLAN: Plan The patient tolerated hyperbaric oxygen therapy well which will be continued as per her medical plan.
[2022-06-14 09:13] VITALS: BP 142/95; PULSE 84; TEMP 36.3; BMI 29.8
[2022-06-14 10:50] VITALS: BP 129/59; BP 174/76; PULSE 72; PULSE 82; RESP 16; RESP 17; TEMP 37
--- NOTE | 2022-06-14 15:30 | HP.PCM_ITS ---
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 The patient was diagnosed with melanoma of the right calf in the 1969's. 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 The patient underwent excision of her melanoma with lymphadenectomy in the right groin. She also underwent lengthy radiation treatments at the [facility] in [place], [place]. Melanoma recurred, and the patient was subsequently treated with monoclonal antibodies in 1984. 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 Treatment included local ulcer care and hyperbaric oxygen therapy. She underwent a total of nearly 90 treatments of hyperbaric oxygen therapy. It is known that she tolerated the therapies well, and derived significant benefit. 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 She has also undergone several more sessions of hyperbaric oxygen therapy. She also received a series of 10 EpiFix allografts in the course of previous treatment. Each of the patient's prior courses of treatment in our facility have been protracted, with difficulties encountered in achieving complete healing. Her most recent course of treatment ended with successful healing and discharge in February 2021. The patient presented at this time with a recurrence of her right groin ulceration, again thought to be secondary to soft tissue radiation injury. The ulceration recurred spontaneously approximately 2-3 weeks prior to her presentation. The patient indicates that her health history has not changed since she was last treated in our facility. She has been approved for hyperbaric oxygen therapy treatment for the ulcer in her right groin caused by radionecrosis. Progress of Wound: Today is the 22nd treatment of hyperbaric oxygen therapy.? The patient is scheduled for 30 treatments total. Tolerance of hyperbaric oxygen therapy: Hyperbaric oxygen treatment was administered as per the facility's protocol.? Hyperbaric oxygen therapy was administered at 2.0 CHHAYA in 100% oxygen for 90 minutes without air breaks.? The patient tolerated hyperbaric oxygen well, without complications or complaints. Upon emergence of the hyperbaric chamber, the patient's vital signs remained stable.? She was discharged in good condition. FORMERLY [facility] Medical History Bilateral cataracts Cancer Hemorrhoids Knee pain Radiation injury Home Medications famotidine 20 mg tablet 20 mg PO 06/20/17 [History Last Taken Unknown] pravastatin 20 mg tablet 20 mg PO DAILY 06/20/17 [History Last Taken Unknown] famotidine 40 mg tablet PO 90 days ##90 12/26/17 [History Last Taken Unknown] pravastatin 20 mg tablet PO 90 days ##90 12/26/17 [History Last Taken Unknown] Allergy/AdvReac Type Severity Reaction Status Date / Time No Known Allergies Allergy Verified 02/15/22 09:08 Family History Other Heart disease Hypertension Surgical History Hx of AKA (above knee amputation) Social History Smoking Status: Former smoker alcohol intake: current alcohol intake frequency: holidays/special occasions only Vital Signs Vital Signs Vital Signs: 06/14/22 09:13 06/14/22 10:50 Temperature 97.3 F L Temperature [Post Treatment] 98.6 F Temperature [Pre Treatment] 98.6 F Temperature Source Temporal Pulse Rate 84 Pulse Rate [Post Treatment] 72 Pulse Rate [Pre Treatment] 82 Respiratory Rate [Post Treatment] 17 Respiratory Rate [Pre Treatment] 16 Blood Pressure 142/95 H Blood Pressure [Post Treatment] 129/59 H Blood Pressure [Pre Treatment] 174/76 H Blood Pressure Mean 110 Blood Pressure Source Monitor Weight Weight: 196 lb 1.696 oz Body Mass Index (BMI) 29.8 Physical Exam Const alert, oriented x3 and no apparent distress General Appearance: cooperative, comfortable, well kempt and well developed Orientation / Consciousness: awake, oriented to person, oriented to place and oriented to time HEENT normocephalic, head/scalp atraumatic, hearing grossly normal bilaterally and external ears normal HEENT Narrative: Able to visualize her ear tubes bilaterally Head and Scalp: normal to inspection External Ear: external ears normal Eyes PERRL, EOMs intact bilaterally and conjunctivae normal General Eye: normal appearance of both eyes Neck full ROM General: normal visual inspection Resp normal respiratory effort, normal air movement, no retractions and no use of accessory muscles Effort and Inspection: able to speak in complete sentences Cardio regular rate and regular rhythm Extremity Extremity Narrative: A well-healed right above-knee amputation stump is noted. Skin Wound Narrative: An ulceration is noted in the right groin. There is no sign of infection or cellulitis. Dimensions are documented elsewhere. There is a small amount of bioburden. There has been notable improvement within the last several weeks, with a significant reduction in the amount of bioburden and nonviable tissue present within the ulceration. There are signs of peripheral epithelialization. Neuro oriented x3, CN's II-XII intact bilaterally, moves all extremities and no focal motor deficits Sensorium / Orientation: awake, alert, oriented to person, oriented to place and oriented to time Psych affect normal Debridement Note Debridement Note Wound debrided: Right groin Laterality: Right Type of Debridement: Excisional debridement Anesthesia Used: 5% Lidocaine Gel Depth: Down to and including healthy tissue and in the subcutaneous layer Percentage of wound debrided: 100 Instrument Used: 3mm curette Tissue Removed: Bioburden and fibrous, nonviable tissue Severity: Fat Layer Exposed Amount of bleeding with debridement: Mild Bleeding Controlled with: Compression and gauze Patient tolerated procedure: Patient tolerated procedure well Post-Debridement Measurements and Additional Note: Post-Debridement Measurements/Treatment - Nurse 1 - General Ulcer Assessment Start: 06/09/22 11:29 Freq: Status: Active Protocol: MICHAEL Activity Type Activity Date Activity User E-sign Co-sign Detail Recorded Client Recorded Date Recorded By Document 06/14/22 09:13 HAI [id number] 06/14/22 09:20 HAI 06/14/22 09:13 - Today's Visit Information 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 Any new allergies or adverse reactions No Had a fall/change in ADL's that may No increase risk of falls Signs or symptoms of abuse and/or No neglect since last visit Have you been in the hospital since your No last visit? Has dressing in place as prescribed Yes Has compression in place as prescribed N/A Has offloadiing in place as prescribed N/A Experienced any changes in pain level or No management Left Footwear Regular Shoe Right Footwear Regular Shoe Pain Scale: 0-10 Numeric Is Patient Pain Free? Yes WC - Nurse 1 - General Ulcer Measurement Start: 06/09/22 11:29 Freq: Status: Active Protocol: Activity Type Activity Date Activity User E-sign Co-sign Detail Recorded Client Recorded Date Recorded By Document 06/14/22 09:13 HAI [id number] 06/14/22 09:20 HAI 06/14/22 09:13 Wound Center Nurse 1 #11 R Groin -Combined with other wound No -Current Size (cm) - Length 2.5 -Current Size (cm) - Width 0.5 -Current Size (cm) - Depth 0.3 -Total Square Cm 1.25 -Date of Last Picture (Recall this 06/14/22 field) -Photo Taken Yes -Tunneling No -Undermining/Tunneling No -Circular Undermining No -Change in Wound Grade/Stage No -Exudate Amt Large -Exudate Type Yellow/Green -Wound Margin Distinct, Outline Attached -Granulation Amt None Present (0 %) -Granulation Quality N/A -Slough/Fibrin Yes -Necrosis Amt Large (67-100%) -Necrotic Tissue Type Adherent Slough -Texture (Blanche-wound Skin Appearance) No Abnormality, Assessed -Moisture (Blanche-wound Skin Appearance) No Abnormality, Assessed -Color (Blanche-wound Skin Appearance) No Abnormality, Assessed -Temperature (Blanche-wound Skin No Abnormality Appearance) (Pt Warm) -Tenderness on Palpation (Blanche-wound No Skin Appearance) -Ulcer Cleansing Rinsed/ Irrigated with Saline -Foul Odor after Cleansing No -Anesthetic Used 4% Lidocaine Solution WC - Nurse 2 - General Ulcer CM Notes Start: 06/09/22 11:29 Freq: Status: Active Protocol: Activity Type Activity Date Activity User E-sign Co-sign Detail Recorded Client Recorded Date Recorded By Document 06/14/22 12:31 HITESH [id number] 06/14/22 12:32 PL 06/14/22 12:31 Wound Center Nurse 2 -Time 09:33 -Correct Patient Yes -Correct Side, Site, Position Yes -Correct Procedure Yes -Procedure Performed Yes -Type of Procedure Debridement -Clinical Debridement Subcutaneous -Tissue Removed Subcutaneous -Post Debridement (cm) - Length 2.5 -Post Debridement (cm) - Width 0.5 -Post Debridement (cm) - Depth 0.3 -Total Square (Post) (cm) 1.25 -Area of Debridement (cm) - Length 2.5 -Area of Debridement (cm) - Width 0.5 -Total Square (Area) (cm) 1.25 -Tunneling No -Undermining/Tunneling No -Circular Undermining No -Wound/Ulcer Outcome Not Healed -Ulcer Cleansing Rinsed/ Irrigated with Saline -Foul Odor after Cleansing No -Bioengineered Tissue No -Bleeding Controlled with Pressure -Treatment Response Procedure Tolerated Well -Debridement - Subq, 1st 20sq cm Yes Pain Scale: 0-10 Numeric Is Patient Pain Free? Yes - Nurse 3 - General Ulcer D/C NN Start: 06/09/22 11:29 Freq: Status: Active Protocol: Activity Type Activity Date Activity User E-sign Co-sign Detail Recorded Client Recorded Date Recorded By Document 06/14/22 10:40 HAI [id number] 06/14/22 10:41 HAI 06/14/22 10:40 Wound Care Nurse 3 #11 R Groin -Ulcer Cleansing Rinsed/ Irrigated with Saline -Foul Odor after Cleansing No -Negative Pressure Wound Therapy N/A -Primary Dressing Applied Hysept ($) -Other Dressing iodoform -Primary Dressing Covered/Secured with Dry Gauze, Secured with Tape Pain Scale: 0-10 Numeric Is Patient Pain Free? Yes WC - Visit Discharge Discharge Condition Stable Ambulatory Status Ambulatory Transportation Private Auto Medication Reconcilliation completed & Yes provided to patient/care provider Clinical Summary of Care Provided Yes Assessment/Plan Assessment/Plan (1) Soft tissue radionecrosis: CODE(S): L59.8 - Other specified disorders of the skin and subcutaneous tissue related to radiation; Y84.2 - Radiological procedure and radiotherapy as the cause of abnormal reaction of the patient, or of later complication, without mention of misadventure at the time of the procedure (2) soft tissue radiation injury: (3) Ulcer of right groin: CODE(S): L98.499 - Non-pressure chronic ulcer of skin of other sites with unspecified severity QUALIFIERS: Non-pressure ulcer stage: with fat layer exposed Qualified Code(s): L98.492 - Non-pressure chronic ulcer of skin of other sites with fat layer exposed (4) Amputee, above knee: CODE(S): Z89.619 - Acquired absence of unspecified leg above knee PLAN: Plan The patient's ulceration in the right groin persists. It is related to soft tissue radiation injury. We are to modify her outpatient treatment regimen. We are to continue the use of moistened Nu Gauze inserted on a daily basis. However, we are to implement the use of Dakin's solution as the moisturizing liquid. This will be used to pack the ulceration on a daily basis. There has been recent improvement in the status of the right groin ulceration, with a reduction in the amount of bioburden and nonviable tissue. There has been an increase of peripheral epithelialization. With the initial course of hyperbaric oxygen therapy treatments nearing conclusion, we are to renew the protocol for 30 additional hyperbaric oxygen sessions. It appears as though the patient's recent improvement is, at least in part, due to the hyperbaric oxygen therapy sessions the patient has been receiving. Additionally, she is tolerating hyperbaric oxygen therapy without adverse consequences. Today's session, the 22nd of 30 such sessions and the initial round, was tolerated well. Total time: 22 minutes
--- NOTE | 2022-06-16 11:25 | HBO.PN.PCM_ITS ---
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 The patient was diagnosed with melanoma of the right calf in the 1969's. 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 The patient underwent excision of her melanoma with lymphadenectomy in the right groin. She also underwent lengthy radiation treatments at the [facility] in [place], [place]. Melanoma recurred, and the patient was subsequently treated with monoclonal antibodies in 1984. 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 Treatment included local ulcer care and hyperbaric oxygen therapy. She underwent a total of nearly 90 treatments of hyperbaric oxygen therapy. It is known that she tolerated the therapies well, and derived significant benefit. 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 She has also undergone several more sessions of hyperbaric oxygen therapy. She also received a series of 10 EpiFix allografts in the course of previous treatment. Each of the patient's prior courses of treatment in our facility have been protracted, with difficulties encountered in achieving complete healing. Her most recent course of treatment ended with successful healing and discharge in February 2021. The patient presented at this time with a recurrence of her right groin ulceration, again thought to be secondary to soft tissue radiation injury. The ulceration recurred spontaneously approximately 2-3 weeks prior to her presentation. The patient indicates that her health history has not changed since she was last treated in our facility. She has been approved for hyperbaric oxygen therapy treatment for the ulcer in her right groin caused by radionecrosis. Progress of Wound: Today is the 23rd treatment of hyperbaric oxygen therapy.? The patient is scheduled for 30 treatments total. Tolerance of hyperbaric oxygen therapy: Hyperbaric oxygen treatment was administered as per the facility's protocol.? Hyperbaric oxygen therapy was administered at 2.0 CHHAYA in 100% oxygen for 90 minutes without air breaks.? The patient tolerated hyperbaric oxygen well, without complications or complaints. Upon emergence of the hyperbaric chamber, the patient's vital signs remained stable.? She was discharged in good condition. Objective Data Objective Data Vital Signs: Vital Signs Temp Pulse Resp BP 98.6 F 82 16 174/76 H 06/14/22 10:50 06/14/22 10:50 06/14/22 10:50 06/14/22 10:50 Weight: 196 lb 1.696 oz Body Mass Index (BMI) 29.8 Exam Physical Exam Const alert, oriented x3 and no apparent distress HEENT TM's normal bilaterally HEENT Narrative: Eustachian tubes intact bilaterally Resp normal respiratory effort and normal air movement Effort and Inspection: able to speak in complete sentences Cardio regular rate and regular rhythm Psych mental status grossly normal, thought process normal, cooperative, affect normal and speech normal Nursing Assessment and Debridement Post-Debridement Measurements and Additional Note: Post-Debridement Measurements/Treatment WC - Nurse 1 - General Ulcer Assessment Start: 06/09/22 11:29 Freq: Status: Active Protocol: MICHAEL Activity Type Activity Date Activity User E-sign Co-sign Detail Recorded Client Recorded Date Recorded By Document 06/14/22 09:13 HAI [id number] 06/14/22 09:20 HAI 06/14/22 09:13 WC - Today's Visit Information 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 Any new allergies or adverse reactions No Had a fall/change in ADL's that may No increase risk of falls Signs or symptoms of abuse and/or No neglect since last visit Have you been in the hospital since your No last visit? Has dressing in place as prescribed Yes Has compression in place as prescribed N/A Has offloadiing in place as prescribed N/A Experienced any changes in pain level or No management Left Footwear Regular Shoe Right Footwear Regular Shoe Pain Scale: 0-10 Numeric Is Patient Pain Free? Yes WC - Nurse 1 - General Ulcer Measurement Start: 06/09/22 11:29 Freq: Status: Active Protocol: Activity Type Activity Date Activity User E-sign Co-sign Detail Recorded Client Recorded Date Recorded By Document 06/14/22 09:13 [place] [id number] 06/14/22 09:20 AK 06/14/22 09:13 Wound Center Nurse 1 #11 R Groin -Combined with other wound No -Current Size (cm) - Length 2.5 -Current Size (cm) - Width 0.5 -Current Size (cm) - Depth 0.3 -Total Square Cm 1.25 -Date of Last Picture (Recall this 06/14/22 field) -Photo Taken Yes -Tunneling No -Undermining/Tunneling No -Circular Undermining No -Change in Wound Grade/Stage No -Exudate Amt Large -Exudate Type Yellow/Green -Wound Margin Distinct, Outline Attached -Granulation Amt None Present (0 %) -Granulation Quality N/A -Slough/Fibrin Yes -Necrosis Amt Large (67-100%) -Necrotic Tissue Type Adherent Slough -Texture (Blanche-wound Skin Appearance) No Abnormality, Assessed -Moisture (Blanche-wound Skin Appearance) No Abnormality, Assessed -Color (Blanche-wound Skin Appearance) No Abnormality, Assessed -Temperature (Blanche-wound Skin No Abnormality Appearance) (Pt Warm) -Tenderness on Palpation (Blanche-wound No Skin Appearance) -Ulcer Cleansing Rinsed/ Irrigated with Saline -Foul Odor after Cleansing No -Anesthetic Used 4% Lidocaine Solution WC - Nurse 2 - General Ulcer CM Notes Start: 06/09/22 11:29 Freq: Status: Active Protocol: Activity Type Activity Date Activity User E-sign Co-sign Detail Recorded Client Recorded Date Recorded By Document 06/14/22 12:31 PL [id number] 06/14/22 12:32 PL 06/14/22 12:31 Wound Center Nurse 2 -Time 09:33 -Correct Patient Yes -Correct Side, Site, Position Yes -Correct Procedure Yes -Procedure Performed Yes -Type of Procedure Debridement -Clinical Debridement Subcutaneous -Tissue Removed Subcutaneous -Post Debridement (cm) - Length 2.5 -Post Debridement (cm) - Width 0.5 -Post Debridement (cm) - Depth 0.3 -Total Square (Post) (cm) 1.25 -Area of Debridement (cm) - Length 2.5 -Area of Debridement (cm) - Width 0.5 -Total Square (Area) (cm) 1.25 -Tunneling No -Undermining/Tunneling No -Circular Undermining No -Wound/Ulcer Outcome Not Healed -Ulcer Cleansing Rinsed/ Irrigated with Saline -Foul Odor after Cleansing No -Bioengineered Tissue No -Bleeding Controlled with Pressure -Treatment Response Procedure Tolerated Well -Debridement - Subq, 1st 20sq cm Yes Pain Scale: 0-10 Numeric Is Patient Pain Free? Yes - Nurse 3 - General Ulcer D/C NN Start: 06/09/22 11:29 Freq: Status: Active Protocol: Activity Type Activity Date Activity User E-sign Co-sign Detail Recorded Client Recorded Date Recorded By Document 06/14/22 10:40 HAI [id number] 06/14/22 10:41 HAI 06/14/22 10:40 Wound Care Nurse 3 #11 R Groin -Ulcer Cleansing Rinsed/ Irrigated with Saline -Foul Odor after Cleansing No -Negative Pressure Wound Therapy N/A -Primary Dressing Applied Hysept ($) -Other Dressing iodoform -Primary Dressing Covered/Secured with Dry Gauze, Secured with Tape Pain Scale: 0-10 Numeric Is Patient Pain Free? Yes - Visit Discharge Discharge Condition Stable Ambulatory Status Ambulatory Transportation Private Auto Medication Reconcilliation completed & Yes provided to patient/care provider Clinical Summary of Care Provided Yes Assessment/Plan Assessment/Plan (1) Soft tissue radionecrosis: CODE(S): L59.8 - Other specified disorders of the skin and subcutaneous ti ssue related to radiation; Y84.2 - Radiological procedure and radiotherapy as the cause of abnormal reaction of the patient, or of later complication, without mention of misadventure at the time of the procedure (2) Radiation injury: CODE(S): T66.XXXA - Radiation sickness, unspecified, initial encounter (3) soft tissue radiation injury: (4) Ulcer of right groin: CODE(S): L98.499 - Non-pressure chronic ulcer of skin of other sites with unspecified severity QUALIFIERS: Non-pressure ulcer stage: with fat layer exposed Qualified Code(s): L98.492 - Non-pressure chronic ulcer of skin of other sites with fat layer exposed (5) Amputee, above knee: CODE(S): Z89.619 - Acquired absence of unspecified leg above knee PLAN: Plan The patient tolerated hyperbaric oxygen therapy well which will be continued as per her medical plan. This note was generated with [employer] dictation software. It may contain incorrect words, spelling, and punctuation that were not noted in checking the note before signing.
[2022-06-16 11:34] VITALS: BP 134/49; BP 182/94; PULSE 74; PULSE 90; RESP 17; RESP 18; TEMP 35.9
[2022-06-17 10:40] VITALS: BP 148/68; BP 148/74; PULSE 73; PULSE 89; RESP 17; RESP 18; TEMP 36.1; TEMP 36.2
--- NOTE | 2022-06-17 13:57 | HBO.PN.PCM_ITS ---
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 The patient was diagnosed with melanoma of the right calf in the 1969's. 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 The patient underwent excision of her melanoma with lymphadenectomy in the right groin. She also underwent lengthy radiation treatments at the [facility] in [place], [place]. Melanoma recurred, and the patient was subsequently treated with monoclonal antibodies in 1984. 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 Treatment included local ulcer care and hyperbaric oxygen therapy. She underwent a total of nearly 90 treatments of hyperbaric oxygen therapy. It is known that she tolerated the therapies well, and derived significant benefit. 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 She has also undergone several more sessions of hyperbaric oxygen therapy. She also received a series of 10 EpiFix allografts in the course of previous treatment. Each of the patient's prior courses of treatment in our facility have been protracted, with difficulties encountered in achieving complete healing. Her most recent course of treatment ended with successful healing and discharge in February 2021. The patient presented at this time with a recurrence of her right groin ulceration, again thought to be secondary to soft tissue radiation injury. The ulceration recurred spontaneously approximately 2-3 weeks prior to her presentation. The patient indicates that her health history has not changed since she was last treated in our facility. She has been approved for hyperbaric oxygen therapy treatment for the ulcer in her right groin caused by radionecrosis. Progress of Wound: Today is the 24th treatment of hyperbaric oxygen therapy.? The patient is scheduled for 60 treatments total. Tolerance of hyperbaric oxygen therapy: Hyperbaric oxygen treatment was administered as per the facility's protocol.? Hyperbaric oxygen therapy was administered at 2.0 CHHAYA in 100% oxygen for 90 minutes without air breaks.? The patient tolerated hyperbaric oxygen well, without complications or complaints. Upon emergence of the hyperbaric chamber, the patient's vital signs remained stable.? She was discharged in good condition. Objective Data Objective Data Vital Signs: Vital Signs Temp Pulse Resp BP 97.0 F L 89 18 148/74 H 06/17/22 10:40 06/17/22 10:40 06/17/22 10:40 06/17/22 10:40 Weight: 88.952 kg Body Mass Index (BMI) 29.8 Assessment/Plan Assessment/Plan (1) Radiation injury: CODE(S): T66.XXXA - Radiation sickness, unspecified, initial encounter (2) History of melanoma: CODE(S): Z85.820 - Personal history of malignant melanoma of skin (3) Soft tissue radionecrosis: CODE(S): L59.8 - Other specified disorders of the skin and subcutaneous tissue related to radiation; Y84.2 - Radiological procedure and radiotherapy as the cause of abnormal reaction of the patient, or of later complication, without mention of misadventure at the time of the procedure PLAN: Plan The patient appears to be tolerating hyperbaric oxygen therapy well, which will be continued as per their medical treatment plan.
--- NOTE | 2022-06-20 11:05 | PCM.HBO.PN ---
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 The patient was diagnosed with melanoma of the right calf in the 1969's. 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 The patient underwent excision of her melanoma with lymphadenectomy in the right groin. She also underwent lengthy radiation treatments at the [facility] in [place], [place]. Melanoma recurred, and the patient was subsequently treated with monoclonal antibodies in 1984. 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 Treatment included local ulcer care and hyperbaric oxygen therapy. She underwent a total of nearly 90 treatments of hyperbaric oxygen therapy. It is known that she tolerated the therapies well, and derived significant benefit. 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 She has also undergone several more sessions of hyperbaric oxygen therapy. She also received a series of 10 EpiFix allografts in the course of previous treatment. Each of the patient's prior courses of treatment in our facility have been protracted, with difficulties encountered in achieving complete healing. Her most recent course of treatment ended with successful healing and discharge in February 2021. The patient presented at this time with a recurrence of her right groin ulceration, again thought to be secondary to soft tissue radiation injury. The ulceration recurred spontaneously approximately 2-3 weeks prior to her presentation. The patient indicates that her health history has not changed since she was last treated in our facility. She has been approved for hyperbaric oxygen therapy treatment for the ulcer in her right groin caused by radionecrosis. Progress of Wound: Today is the 25th treatment of hyperbaric oxygen therapy.? The patient is scheduled for 60 treatments total. Tolerance of hyperbaric oxygen therapy: Hyperbaric oxygen treatment was administered as per the facility's protocol.? Hyperbaric oxygen therapy was administered at 2.0 CHHAYA in 100% oxygen for 90 minutes without air breaks.? The patient tolerated hyperbaric oxygen well, without complications or complaints. Upon emergence of the hyperbaric chamber, the patient's vital signs remained stable.? She was discharged in good condition. Objective Data Objective Data Vital Signs: Vital Signs Temp Pulse Resp BP 97.0 F L 89 18 148/74 H 06/17/22 10:40 06/17/22 10:40 06/17/22 10:40 06/17/22 10:40 Weight: 196 lb 1.696 oz Body Mass Index (BMI) 29.8 Exam Physical Exam Const alert, oriented x3 and no apparent distress HEENT TM's normal bilaterally HEENT Narrative: Eustachian tubes intact bilaterally Resp normal respiratory effort and normal air movement Effort and Inspection: able to speak in complete sentences Cardio regular rate and regular rhythm Psych mental status grossly normal, thought process normal, cooperative, affect normal and speech normal Assessment/Plan Assessment/Plan (1) Radiation injury: CODE(S): T66.XXXA - Radiation sickness, unspecified, initial encounter (2) History of melanoma: CODE(S): Z85.820 - Personal history of malignant melanoma of skin (3) Soft tissue radionecrosis: CODE(S): L59.8 - Other specified disorders of the skin and subcutaneous tissue related to radiation; Y84.2 - Radiological procedure and radiotherapy as the cause of abnormal reaction of the patient, or of later complication, without mention of misadventure at the time of the procedure PLAN: Plan The patient appears to be tolerating hyperbaric oxygen therapy well, which will be continued as per their medical treatment plan.
[2022-06-20 11:17] VITALS: BP 119/61; BP 136/67; PULSE 72; PULSE 77; RESP 16; RESP 17; TEMP 35.9; TEMP 36.2
[2022-06-21 09:08] VITALS: BP 166/93; PULSE 81; TEMP 36.6; BMI 29.8
--- NOTE | 2022-06-21 12:53 | PCM.WC.HP ---
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 The patient was diagnosed with melanoma of the right calf in the 1969's. The melanoma was metastatic to lymph nodes. The patient underwent excision of her melanoma with lymphadenectomy in the right groin. She also underwent lengthy radiation treatments at the [facility] in [place], [place]. Melanoma recurred, and the patient was subsequently treated with monoclonal antibodies in 1984. However, due to the presence of severe radiation injury, persisting open wounds in the right thigh, MRSA infection, and severe radiation injury to the right femoral artery, the patient subsequently required right above-knee amputation in 2002. 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 Treatment included local ulcer care and hyperbaric oxygen therapy. She underwent a total of nearly 90 treatments of hyperbaric oxygen therapy. It is known that she tolerated the therapies well, and derived significant benefit. 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 She has also undergone several more sessions of hyperbaric oxygen therapy. She also received a series of 10 EpiFix allografts in the course of previous treatment. Each of the patient's prior courses of treatment in our facility have been protracted, with difficulties encountered in achieving complete healing. Her most recent course of treatment ended with successful healing and discharge in February 2021. The patient presented at this time with a recurrence of her right groin ulceration, again thought to be secondary to soft tissue radiation injury. The ulceration recurred spontaneously approximately 2-3 weeks prior to her presentation. The patient indicates that her health history has not changed since she was last treated in our facility. She has been approved for hyperbaric oxygen therapy treatment for the ulcer in her right groin caused by radionecrosis. [facility] Medical History Bilateral cataracts Cancer Hemorrhoids Knee pain Radiation injury Home Medications famotidine 20 mg tablet 20 mg PO 06/20/17 [History Last Taken Unknown] pravastatin 20 mg tablet 20 mg PO DAILY 06/20/17 [History Last Taken Unknown] famotidine 40 mg tablet PO 90 days ##90 12/26/17 [History Last Taken Unknown] pravastatin 20 mg tablet PO 90 days ##90 12/26/17 [History Last Taken Unknown] Allergy/AdvReac Type Severity Reaction Status Date / Time No Known Allergies Allergy Verified 02/15/22 09:08 Family History Other Heart disease Hypertension Surgical History Hx of AKA (above knee amputation) Social History Smoking Status: Former smoker alcohol intake: current alcohol intake frequency: holidays/special occasions only Vital Signs Vital Signs Vital Signs: 06/21/22 09:08 Temperature 97.9 F Temperature Source Temporal Pulse Rate 81 Blood Pressure 166/93 H Blood Pressure Mean 117 Weight Weight: 196 lb 1.696 oz Body Mass Index (BMI) 29.8 Physical Exam Const alert, oriented x3 and no apparent distress General Appearance: cooperative, comfortable, well kempt and well developed HEENT normocephalic and head/scalp atraumatic HEENT Narrative: Eustachian tubes intact bilaterally Face and Sinus: normal facial exam Eyes PERRL, EOMs intact bilaterally and conjunctivae normal General Eye: normal appearance of both eyes Neck full ROM General: normal visual inspection Resp normal respiratory effort, normal air movement, no retractions and no use of accessory muscles Effort and Inspection: able to speak in complete sentences Cardio regular rate and regular rhythm Skin Wound Narrative: An ulceration is noted in the patient's right groin. Dimensions are documented elsewhere. There appears to be evidence of peripheral epithelialization. There is no sign of infection or cellulitis. There is a moderate amount of bioburden. A well-healed right above-knee amputation stump is noted. Neuro oriented x3, CN's II-XII intact bilaterally, moves all extremities and no focal motor deficits Sensorium / Orientation: awake, alert, oriented to person, oriented to place and oriented to time Psych mental status grossly normal, thought process normal, cooperative, affect normal and speech normal Debridement Note Debridement Note Wound debrided: Right groin Laterality: Right Type of Debridement: Excisional debridement Anesthesia Used: 5% Lidocaine Gel Depth: Down to and including healthy tissue and in the subcutaneous layer Percentage of wound debrided: 100 Instrument Used: 3mm curette Tissue Removed: Bioburden and fibrous, nonviable tissue Severity: Fat Layer Exposed Amount of bleeding with debridement: Mild Bleeding Controlled with: Compression and gauze Patient tolerated procedure: Patient tolerated procedure well Post-Debridement Measurements and Additional Note: Post-Debridement Measurements/Treatment KISHA - Nurse 1 - General Ulcer Assessment Start: 06/09/22 11:29 Freq: Status: Active Protocol: MICHAEL Activity Type Activity Date Activity User E-sign Co-sign Detail Recorded Client Recorded Date Recorded By Document 06/14/22 09:13 HAI [id number] 06/14/22 09:20 AK Document 06/21/22 09:08 NV [id number] 06/21/22 09:14 AK 06/14/22 06/21/22 09:13 09:08 KISHA - Today's Visit Information Type of service Follow-up Visit Follow-up 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/RETENTION SPECIALIST (Physician/RETENTION SPECIALIST ) ) Arrival Mode Ambulatory Ambulatory Patient Identification Verified (Name & No Yes ) Patient Requires Transmission-Based No No Precautions Safety Precautions NA NA Height and Weight Body Mass Index (BMI) 29.8 29.8 BMI Classification Overweight Overweight Vital Signs Temperature (97.8 F-99.1 F) 97.3 F L 97.9 F Temperature Source Temporal Temporal Pulse Rate (60-100) 84 81 Pulse Location Monitor Blood Pressure (90/60-120/80) 142/95 H 166/93 H Blood Pressure Mean 110 117 Source Monitor History Since Last Visit- (Skip if this is Patient's initial visit) Have you changed medications since your No No last visit? Any new allergies or adverse reactions No No Had a fall/change in ADL's that may No No increase risk of falls Signs or symptoms of abuse and/or No No neglect since last visit Have you been in the hospital since your No No last visit? Has dressing in place as prescribed Yes Yes Has compression in place as prescribed N/A Yes Has offloadiing in place as prescribed N/A N/A Experienced any changes in pain level or No management Left Footwear Regular Shoe Regular Shoe Right Footwear Regular Shoe Regular Shoe Pain Scale: 0-10 Numeric Is Patient Pain Free? Yes Yes - Nurse 1 - General Ulcer Measurement Start: 06/09/22 11:29 Freq: Status: Active Protocol: Activity Type Activity Date Activity User E-sign Co-sign Detail Recorded Client Recorded Date Recorded By Document 06/14/22 09:13 NV [id number] 06/14/22 09:20 AK Document 06/21/22 09:08 NV [id number] 06/21/22 09:14 AK 06/14/22 06/21/22 09:13 09:08 Wound Center Nurse 1 #11 R Groin -Combined with other wound No No -Current Size (cm) - Length 2.5 0.3 -Current Size (cm) - Width 0.5 0.5 -Current Size (cm) - Depth 0.3 0.3 -Total Square Cm 1.25 0.15 -Date of Last Picture (Recall this 06/14/22 field) -Photo Taken Yes No -Tunneling No No -Undermining/Tunneling No No -Circular Undermining No No -Change in Wound Grade/Stage No No -Exudate Amt Large Small -Exudate Type Yellow/Green Serosanguineous -Wound Margin Distinct, Distinct, Outline Outline Attached Attached -Granulation Amt None Present (0 Small (1-33%) %) -Granulation Quality N/A N/A -Slough/Fibrin Yes Yes -Necrosis Amt Large (67-100%) Medium (34-66%) -Necrotic Tissue Type Adherent Slough Adherent Slough -Structure Exposed N/A -Texture (Blanche-wound Skin Appearance) No Abnormality, Assessed, Assessed Scarring -Moisture (Blanche-wound Skin Appearance) No Abnormality, No Abnormality, Assessed Assessed -Color (Blanche-wound Skin Appearance) No Abnormality, No Abnormality, Assessed Assessed -Temperature (Blanche-wound Skin No Abnormality No Abnormality Appearance) (Pt Warm) (Pt Warm) -Tenderness on Palpation (Blanche-wound No No Skin Appearance) -Ulcer Cleansing Rinsed/ Rinsed/ Irrigated with Irrigated with Saline Saline -Foul Odor after Cleansing No No -Anesthetic Used 4% Lidocaine 4% Lidocaine Solution Solution - Nurse 2 - General Ulcer CM Notes Start: 06/09/22 11:29 Freq: Status: Active Protocol: Activity Type Activity Date Activity User E-sign Co-sign Detail Recorded Client Recorded Date Recorded By Document 06/14/22 12:31 PL [id number] 06/14/22 12:32 PL Document 06/21/22 11:39 PL [id number] 06/21/22 11:39 PL 06/14/22 06/21/22 12:31 11:39 Wound Center Nurse 2 #11 R Groin -Time 09:33 09:19 -Correct Patient Yes Yes -Correct Side, Site, Position Yes Yes -Correct Procedure Yes Yes -Procedure Performed Yes Yes -Type of Procedure Debridement Debridement -Clinical Debridement Subcutaneous Subcutaneous -Tissue Removed Subcutaneous Subcutaneous -Post Debridement (cm) - Length 2.5 0.3 -Post Debridement (cm) - Width 0.5 0.5 -Post Debridement (cm) - Depth 0.3 0.3 -Total Square (Post) (cm) 1.25 0.15 -Area of Debridement (cm) - Length 2.5 0.3 -Area of Debridement (cm) - Width 0.5 0.5 -Total Square (Area) (cm) 1.25 0.15 -Tunneling No No -Undermining/Tunneling No No -Circular Undermining No No -Wound/Ulcer Outcome Not Healed Not Healed -Ulcer Cleansing Rinsed/ Rinsed/ Irrigated with Irrigated with Saline Saline -Foul Odor after Cleansing No No -Bioengineered Tissue No No -Bleeding Controlled with Pressure Pressure -Treatment Response Procedure Procedure Tolerated Well Tolerated Well -Debridement - Subq, 1st 20sq cm Yes Yes Pain Scale: 0-10 Numeric Is Patient Pain Free? Yes Yes WC - Nurse 3 - General Ulcer D/C NN Start: 06/09/22 11:29 Freq: Status: Active Protocol: Activity Type Activity Date Activity User E-sign Co-sign Detail Recorded Client Recorded Date Recorded By Document 06/14/22 10:40 AK [id number] 06/14/22 10:41 AK Document 06/21/22 09:29 ML [id number] 06/21/22 09:32 ML 06/14/22 06/21/22 10:40 09:29 Wound Care Nurse 3 #11 R Groin -Ulcer Cleansing Rinsed/ Soap and Water Irrigated with Saline -Foul Odor after Cleansing No -Negative Pressure Wound Therapy N/A -Primary Dressing Applied Hysept ($) -Other Dressing iodoform moistened nuguaze, moistened dakin0.25% -Primary Dressing Covered/Secured with Dry Gauze, Dry Gauze, Secured with Secured with Tape Tape Pain Scale: 0-10 Numeric Is Patient Pain Free? Yes Yes WC - Visit Discharge Discharge Condition Stable Ambulatory Status Ambulatory Transportation Private Auto Medication Reconcilliation completed & Yes provided to patient/care provider Clinical Summary of Care Provided Yes Assessment/Plan Assessment/Plan (1) Soft tissue radionecrosis: CODE(S): L59.8 - Other specified disorders of the skin and subcutaneous tissue related to radiation; Y84.2 - Radiological procedure and radiotherapy as the cause of abnormal reaction of the patient, or of later complication, without mention of misadventure at the time of the procedure (2) Radiation injury: CODE(S): T66.XXXA - Radiation sickness, unspecified, initial encounter (3) History of melanoma: CODE(S): Z85.820 - Personal history of malignant melanoma of skin PLAN: Plan The patient is to continue with hyperbaric oxygen therapy. Today's session was canceled due to staffing issues at our facility. Patient's right groin continues to show slow but steady improvement. It appears to be slightly smaller in size, with evidence of peripheral epithelialization. We are to continue with the use of Dakin's-moistened gauze packing to the right groin ulceration on a daily basis. Patient will return in 1 week for reassessment. Hyperbaric oxygen therapy sessions will be continued. Total time: 25 minutes
[2022-06-22 11:19] VITALS: BP 160/78; PULSE 84; RESP 16; TEMP 36.3
--- NOTE | 2022-06-22 12:16 | HBO.PN.PCM_ITS ---
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 The patient was diagnosed with melanoma of the right calf in the 1969's. The melanoma was metastatic to lymph nodes. The patient underwent excision of her melanoma with lymphadenectomy in the right groin. She also underwent lengthy radiation treatments at the [facility] in [place], [place]. Melanoma recurred, and the patient was subsequently treated with monoclonal antibodies in 1984. However, due to the presence of severe radiation injury, persisting open wounds in the right thigh, MRSA infection, and severe radiation injury to the right femoral artery, the patient subsequently required right above-knee amputation in 2002. 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 Treatment included local ulcer care and hyperbaric oxygen therapy. She underwent a total of nearly 90 treatments of hyperbaric oxygen therapy. It is known that she tolerated the therapies well, and derived significant benefit. 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 She has also undergone several more sessions of hyperbaric oxygen therapy. She also received a series of 10 EpiFix allografts in the course of previous treatment. Each of the patient's prior courses of treatment in our facility have been protracted, with difficulties encountered in achieving complete healing. Her most recent course of treatment ended with successful healing and discharge in February 2021. The patient presented at this time with a recurrence of her right groin ulceration, again thought to be secondary to soft tissue radiation injury. The ulceration recurred spontaneously approximately 2-3 weeks prior to her presentation. The patient indicates that her health history has not changed since she was last treated in our facility. She has been approved for hyperbaric oxygen therapy treatment for the ulcer in her right groin caused by radionecrosis. Progress of Wound: Today is the 26th treatment of hyperbaric oxygen therapy.? The patient is scheduled for 60 treatments total. Tolerance of hyperbaric oxygen therapy: Hyperbaric oxygen treatment was administered as per the facility's protocol.? Hyperbaric oxygen therapy was administered at 2.0 CHHAYA in 100% oxygen for 90 minutes without air breaks.? The patient tolerated hyperbaric oxygen well, without complications or complaints. Upon emergence of the hyperbaric chamber, the patient's vital signs remained stable.? She was discharged in good condition. Objective Data Objective Data Tolerating treatments well vital signs of been stable on admission and discharge we will continue treatments as scheduled Vital Signs: Vital Signs Temp Pulse Resp BP 97.3 F L 84 16 160/78 H 06/22/22 11:19 06/22/22 11:19 06/22/22 11:19 06/22/22 11:19 Weight: 196 lb 1.696 oz Body Mass Index (BMI) 29.8 Exam Physical Exam Const alert and oriented x3 General Appearance: cooperative Resp normal respiratory effort Effort and Inspection: able to speak in complete sentences Cardio regular rate and regular rhythm Extremity Extremity Narrative: Here for soft tissue radiation necrosis Nursing Assessment and Debridement Post-Debridement Measurements and Additional Note: Post-Debridement Measurements/Treatment WC - Nurse 1 - General Ulcer Assessment Start: 06/09/22 11:29 Freq: Status: Active Protocol: MICHAEL Activity Type Activity Date Activity User E-sign Co-sign Detail Recorded Client Recorded Date Recorded By Document 06/21/22 09:08 HAI [id number] 06/21/22 09:14 HAI 06/21/22 09:08 WC - Today's Visit Information Type of service Follow-up 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/ELECTRICAL ENGINEER ) Arrival Mode Ambulatory Patient Identification Verified (Name & Yes ) Patient Requires Transmission-Based No Precautions Safety Precautions NA Height and Weight Body Mass Index (BMI) 29.8 BMI Classification Overweight Vital Signs Temperature (97.8 F-99.1 F) 97.9 F Temperature Source Temporal Pulse Rate (60-100) 81 Blood Pressure (90/60-120/80) 166/93 H Blood Pressure Mean (mm Hg) 117 History Since Last Visit- (Skip if this is Patient's initial visit) Have you changed medications since your No last visit? Any new allergies or adverse reactions No Had a fall/change in ADL's that may No increase risk of falls Signs or symptoms of abuse and/or No neglect since last visit Have you been in the hospital since your No last visit? Has dressing in place as prescribed Yes Has compression in place as prescribed Yes Has offloadiing in place as prescribed N/A Left Footwear Regular Shoe Right Footwear Regular Shoe Pain Scale: 0-10 Numeric Is Patient Pain Free? Yes WC - Nurse 1 - General Ulcer Measurement Start: 06/09/22 11:29 Freq: Status: Active Protocol: Activity Type Activity Date Activity User E-sign Co-sign Detail Recorded Client Recorded Date Recorded By Document 06/21/22 09:08 HAI [id number] 06/21/22 09:14 AK 06/21/22 09:08 Wound Center Nurse 1 #11 R Groin -Combined with other wound No -Current Size (cm) - Length 0.3 -Current Size (cm) - Width 0.5 -Current Size (cm) - Depth 0.3 -Total Square Cm 0.15 -Photo Taken No -Tunneling No -Undermining/Tunneling No -Circular Undermining No -Change in Wound Grade/Stage No -Exudate Amt Small -Exudate Type Serosanguineous -Wound Margin Distinct, Outline Attached -Granulation Amt Small (1-33%) -Granulation Quality N/A -Slough/Fibrin Yes -Necrosis Amt Medium (34-66%) -Necrotic Tissue Type Adherent Slough -Structure Exposed N/A -Texture (Blanche-wound Skin Appearance) Assessed, Scarring -Moisture (Blanche-wound Skin Appearance) No Abnormality, Assessed -Color (Blanche-wound Skin Appearance) No Abnormality, Assessed -Temperature (Blanche-wound Skin No Abnormality Appearance) (Pt Warm) -Tenderness on Palpation (Blanche-wound No Skin Appearance) -Ulcer Cleansing Rinsed/ Irrigated with Saline -Foul Odor after Cleansing No -Anesthetic Used 4% Lidocaine Solution WC - Nurse 2 - General Ulcer CM Notes Start: 06/09/22 11:29 Freq: Status: Active Protocol: Activity Type Activity Date Activity User E-sign Co-sign Detail Recorded Client Recorded Date Recorded By Document 06/21/22 11:39 PL [id number] 06/21/22 11:39 PL 06/21/22 11:39 Wound Center Nurse 2 -Time 09:19 -Correct Patient Yes -Correct Side, Site, Position Yes -Correct Procedure Yes -Procedure Performed Yes -Type of Procedure Debridement -Clinical Debridement Subcutaneous -Tissue Removed Subcutaneous -Post Debridement (cm) - Length 0.3 -Post Debridement (cm) - Width 0.5 -Post Debridement (cm) - Depth 0.3 -Total Square (Post) (cm) 0.15 -Area of Debridement (cm) - Length 0.3 -Area of Debridement (cm) - Width 0.5 -Total Square (Area) (cm) 0.15 -Tunneling No -Undermining/Tunneling No -Circular Undermining No -Wound/Ulcer Outcome Not Healed -Ulcer Cleansing Rinsed/ Irrigated with Saline -Foul Odor after Cleansing No -Bioengineered Tissue No -Bleeding Controlled with Pressure -Treatment Response Procedure Tolerated Well -Debridement - Subq, 1st 20sq cm Yes Pain Scale: 0-10 Numeric Is Patient Pain Free? Yes WC - Nurse 3 - General Ulcer D/C NN Start: 06/09/22 11:29 Freq: Status: Active Protocol: Activity Type Activity Date Activity User E-sign Co-sign Detail Recorded Client Recorded Date Recorded By Document 06/21/22 09:29 ML [id number] 06/21/22 09:32 ML 06/21/22 09:29 Wound Care Nurse 3 #11 R Groin -Ulcer Cleansing Soap and Water -Other Dressing moistened nuguaze, moistened dakin0.25% -Primary Dressing Covered/Secured with Dry Gauze, Secured with Tape Pain Scale: 0-10 Numeric Is Patient Pain Free? Yes Assessment/Plan Assessment/Plan (1) Radiation injury: CODE(S): T66.XXXA - Radiation sickness, unspecified, initial encounter (2) History of melanoma: CODE(S): Z85.820 - Personal history of malignant melanoma of skin (3) Soft tissue radionecrosis: CODE(S): L59.8 - Other specified disorders of the skin and subcutaneous tissue related to radiation; Y84.2 - Radiological procedure and radiotherapy as the cause of abnormal reaction of the patient, or of later complication, without mention of misadventure at the time of the procedure PLAN: Plan The patient appears to be tolerating hyperbaric oxygen therapy well, which will be continued as per their medical treatment plan.
[2022-06-23 10:55] VITALS: BP 121/57; BP 142/75; PULSE 75; PULSE 86; RESP 15; TEMP 36.3
--- NOTE | 2022-06-23 12:53 | HBO.PN.PCM_ITS ---
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 The patient was diagnosed with melanoma of the right calf in the 1969's. The melanoma was metastatic to lymph nodes. The patient underwent excision of her melanoma with lymphadenectomy in the right groin. She also underwent lengthy radiation treatments at the [facility] in [place], [place]. Melanoma recurred, and the patient was subsequently treated with monoclonal antibodies in 1984. However, due to the presence of severe radiation injury, persisting open wounds in the right thigh, MRSA infection, and severe radiation injury to the right femoral artery, the patient subsequently required right above-knee amputation in 2002. 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 Treatment included local ulcer care and hyperbaric oxygen therapy. She underwent a total of nearly 90 treatments of hyperbaric oxygen therapy. It is known that she tolerated the therapies well, and derived significant benefit. 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 She has also undergone several more sessions of hyperbaric oxygen therapy. She also received a series of 10 EpiFix allografts in the course of previous treatment. Each of the patient's prior courses of treatment in our facility have been protracted, with difficulties encountered in achieving complete healing. Her most recent course of treatment ended with successful healing and discharge in February 2021. The patient presented at this time with a recurrence of her right groin ulceration, again thought to be secondary to soft tissue radiation injury. The ulceration recurred spontaneously approximately 2-3 weeks prior to her presentation. The patient indicates that her health history has not changed since she was last treated in our facility. She has been approved for hyperbaric oxygen therapy treatment for the ulcer in her right groin caused by radionecrosis. Progress of Wound: Today is the 27th treatment of hyperbaric oxygen therapy.? The patient is scheduled for 60 treatments total. Tolerance of hyperbaric oxygen therapy: Hyperbaric oxygen treatment was administered as per the facility's protocol.? Hyperbaric oxygen therapy was administered at 2.0 CHHAYA in 100% oxygen for 90 minutes without air breaks.? The patient tolerated hyperbaric oxygen well, without complications or complaints. Upon emergence of the hyperbaric chamber, the patient's vital signs remained stable.? She was discharged in good condition. Objective Data Objective Data Vital Signs: Vital Signs Temp Pulse Resp BP 97.4 F L 86 15 142/75 H 06/23/22 10:55 06/23/22 10:55 06/23/22 10:55 06/23/22 10:55 Weight: 196 lb 1.696 oz Body Mass Index (BMI) 29.8 Exam Physical Exam Const alert, oriented x3 and no apparent distress General Appearance: cooperative HEENT normocephalic HEENT Narrative: Able to visualize her ear tubes bilaterally Resp normal respiratory effort and clear to auscultation bilaterally Effort and Inspection: able to speak in complete sentences Psych affect normal Nursing Assessment and Debridement Post-Debridement Measurements and Additional Note: Post-Debridement Measurements/Treatment WC - Nurse 1 - General Ulcer Assessment Start: 06/09/22 11:29 Freq: Status: Active Protocol: MICHAEL Activity Type Activity Date Activity User E-sign Co-sign Detail Recorded Client Recorded Date Recorded By Document 06/21/22 09:08 HAI [id number] 06/21/22 09:14 HAI 06/21/22 09:08 WC - Today's Visit Information Type of service Follow-up 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/ROUTE SERVICE REPRESENTATIVE ) Arrival Mode Ambulatory Patient Identification Verified (Name & Yes ) Patient Requires Transmission-Based No Precautions Safety Precautions NA Height and Weight Body Mass Index (BMI) 29.8 BMI Classification Overweight Vital Signs Temperature (97.8 F-99.1 F) 97.9 F Temperature Source Temporal Pulse Rate (60-100) 81 Blood Pressure (90/60-120/80) 166/93 H Blood Pressure Mean (mm Hg) 117 History Since Last Visit- (Skip if this is Patient's initial visit) Have you changed medications since your No last visit? Any new allergies or adverse reactions No Had a fall/change in ADL's that may No increase risk of falls Signs or symptoms of abuse and/or No neglect since last visit Have you been in the hospital since your No last visit? Has dressing in place as prescribed Yes Has compression in place as prescribed Yes Has offloadiing in place as prescribed N/A Left Footwear Regular Shoe Right Footwear Regular Shoe Pain Scale: 0-10 Numeric Is Patient Pain Free? Yes WC - Nurse 1 - General Ulcer Measurement Start: 06/09/22 11:29 Freq: Status: Active Protocol: Activity Type Activity Date Activity User E-sign Co-sign Detail Recorded Client Recorded Date Recorded By Document 06/21/22 09:08 HAI [id number] 06/21/22 09:14 AK 06/21/22 09:08 Wound Center Nurse 1 #11 R Groin -Combined with other wound No -Current Size (cm) - Length 0.3 -Current Size (cm) - Width 0.5 -Current Size (cm) - Depth 0.3 -Total Square Cm 0.15 -Photo Taken No -Tunneling No -Undermining/Tunneling No -Circular Undermining No -Change in Wound Grade/Stage No -Exudate Amt Small -Exudate Type Serosanguineous -Wound Margin Distinct, Outline Attached -Granulation Amt Small (1-33%) -Granulation Quality N/A -Slough/Fibrin Yes -Necrosis Amt Medium (34-66%) -Necrotic Tissue Type Adherent Slough -Structure Exposed N/A -Texture (Blanche-wound Skin Appearance) Assessed, Scarring -Moisture (Blanche-wound Skin Appearance) No Abnormality, Assessed -Color (Blanche-wound Skin Appearance) No Abnormality, Assessed -Temperature (Blanche-wound Skin No Abnormality Appearance) (Pt Warm) -Tenderness on Palpation (Blanche-wound No Skin Appearance) -Ulcer Cleansing Rinsed/ Irrigated with Saline -Foul Odor after Cleansing No -Anesthetic Used 4% Lidocaine Solution WC - Nurse 2 - General Ulcer CM Notes Start: 06/09/22 11:29 Freq: Status: Active Protocol: Activity Type Activity Date Activity User E-sign Co-sign Detail Recorded Client Recorded Date Recorded By Document 06/21/22 11:39 PL [id number] 06/21/22 11:39 PL 06/21/22 11:39 Wound Center Nurse 2 -Time 09:19 -Correct Patient Yes -Correct Side, Site, Position Yes -Correct Procedure Yes -Procedure Performed Yes -Type of Procedure Debridement -Clinical Debridement Subcutaneous -Tissue Removed Subcutaneous -Post Debridement (cm) - Length 0.3 -Post Debridement (cm) - Width 0.5 -Post Debridement (cm) - Depth 0.3 -Total Square (Post) (cm) 0.15 -Area of Debridement (cm) - Length 0.3 -Area of Debridement (cm) - Width 0.5 -Total Square (Area) (cm) 0.15 -Tunneling No -Undermining/Tunneling No -Circular Undermining No -Wound/Ulcer Outcome Not Healed -Ulcer Cleansing Rinsed/ Irrigated with Saline -Foul Odor after Cleansing No -Bioengineered Tissue No -Bleeding Controlled with Pressure -Treatment Response Procedure Tolerated Well -Debridement - Subq, 1st 20sq cm Yes Pain Scale: 0-10 Numeric Is Patient Pain Free? Yes WC - Nurse 3 - General Ulcer D/C NN Start: 06/09/22 11:29 Freq: Status: Active Protocol: Activity Type Activity Date Activity User E-sign Co-sign Detail Recorded Client Recorded Date Recorded By Document 06/21/22 09:29 ML [id number] 06/21/22 09:32 ML 06/21/22 09:29 Wound Care Nurse 3 #11 R Groin -Ulcer Cleansing Soap and Water -Other Dressing moistened nuguaze, moistened dakin0.25% -Primary Dressing Covered/Secured with Dry Gauze, Secured with Tape Pain Scale: 0-10 Numeric Is Patient Pain Free? Yes Charges/Coding Wound Center CF Procedures HBO Supervision: [id number] Hyperbaric Oxygen; supervision Assessment/Plan Assessment/Plan (1) Radiation injury: CODE(S): T66.XXXA - Radiation sickness, unspecified, initial encounter (2) History of melanoma: CODE(S): Z85.820 - Personal history of malignant melanoma of skin (3) Soft tissue radionecrosis: CODE(S): L59.8 - Other specified disorders of the skin and subcutaneous tissue related to radiation; Y84.2 - Radiological procedure and radiotherapy as the cause of abnormal reaction of the patient, or of later complication, without mention of misadventure at the time of the procedure PLAN: Plan The patient appears to be tolerating hyperbaric oxygen therapy well, which will be continued as per her medical plan. This note was generated with [employer] software. It may contain incorrect words, spelling, and punctuation that were not noted in checking the note before signing.
[2022-06-24 11:34] VITALS: BP 130/70; BP 147/82; PULSE 74; PULSE 81; RESP 17; TEMP 36.1
--- NOTE | 2022-06-24 14:30 | HBO.PN.PCM_ITS ---
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 The patient was diagnosed with melanoma of the right calf in the 1969's. The melanoma was metastatic to lymph nodes. The patient underwent excision of her melanoma with lymphadenectomy in the right groin. She also underwent lengthy radiation treatments at the [facility] in [place], [place]. Melanoma recurred, and the patient was subsequently treated with monoclonal antibodies in 1984. However, due to the presence of severe radiation injury, persisting open wounds in the right thigh, MRSA infection, and severe radiation injury to the right femoral artery, the patient subsequently required right above-knee amputation in 2002. 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 Treatment included local ulcer care and hyperbaric oxygen therapy. She underwent a total of nearly 90 treatments of hyperbaric oxygen therapy. It is known that she tolerated the therapies well, and derived significant benefit. 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 She has also undergone several more sessions of hyperbaric oxygen therapy. She also received a series of 10 EpiFix allografts in the course of previous treatment. Each of the patient's prior courses of treatment in our facility have been protracted, with difficulties encountered in achieving complete healing. Her most recent course of treatment ended with successful healing and discharge in February 2021. The patient presented at this time with a recurrence of her right groin ulceration, again thought to be secondary to soft tissue radiation injury. The ulceration recurred spontaneously approximately 2-3 weeks prior to her presentation. The patient indicates that her health history has not changed since she was last treated in our facility. She has been approved for hyperbaric oxygen therapy treatment for the ulcer in her right groin caused by radionecrosis. Progress of Wound: Today is the 28th treatment of hyperbaric oxygen therapy.? The patient is scheduled for 60 treatments total. Tolerance of hyperbaric oxygen therapy: Hyperbaric oxygen treatment was administered as per the facility's protocol.? Hyperbaric oxygen therapy was administered at 2.0 CHHAYA in 100% oxygen for 90 minutes without air breaks.? The patient tolerated hyperbaric oxygen well, without complications or complaints. Upon emergence of the hyperbaric chamber, the patient's vital signs remained stable.? She was discharged in good condition. Objective Data Objective Data Vital Signs: Vital Signs Temp Pulse Resp BP 96.9 F L 81 17 147/82 H 06/24/22 11:34 06/24/22 11:34 06/24/22 11:34 06/24/22 11:34 Weight: 88.952 kg Body Mass Index (BMI) 29.8 Assessment/Plan Assessment/Plan (1) Radiation injury: CODE(S): T66.XXXA - Radiation sickness, unspecified, initial encounter (2) History of melanoma: CODE(S): Z85.820 - Personal history of malignant melanoma of skin (3) Soft tissue radionecrosis: CODE(S): L59.8 - Other specified disorders of the skin and subcutaneous tissue related to radiation; Y84.2 - Radiological procedure and radiotherapy as the cause of abnormal reaction of the patient, or of later complication, without mention of misadventure at the time of the procedure PLAN: Plan The patient appears to be tolerating hyperbaric oxygen therapy well, which will be continued as per their medical treatment plan.
--- NOTE | 2022-06-27 10:26 | PCM.HBO.PN ---
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 The patient was diagnosed with melanoma of the right calf in the 1969's. 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 The patient underwent excision of her melanoma with lymphadenectomy in the right groin. She also underwent lengthy radiation treatments at the [facility] in [place], [place]. Melanoma recurred, and the patient was subsequently treated with monoclonal antibodies in 1984. However, due to the presence of severe radiation injury, persisting open wounds in the right thigh, MRSA infection, and severe radiation injury to the right femoral artery, the patient subsequently required right above-knee amputation in 2002. 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 Treatment included local ulcer care and hyperbaric oxygen therapy. She underwent a total of nearly 90 treatments of hyperbaric oxygen therapy. It is known that she tolerated the therapies well, and derived significant benefit. 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 She has also undergone several more sessions of hyperbaric oxygen therapy. She also received a series of 10 EpiFix allografts in the course of previous treatment. Each of the patient's prior courses of treatment in our facility have been protracted, with difficulties encountered in achieving complete healing. Her most recent course of treatment ended with successful healing and discharge in February 2021. The patient presented at this time with a recurrence of her right groin ulceration, again thought to be secondary to soft tissue radiation injury. The ulceration recurred spontaneously approximately 2-3 weeks prior to her presentation. The patient indicates that her health history has not changed since she was last treated in our facility. She has been approved for hyperbaric oxygen therapy treatment for the ulcer in her right groin caused by radionecrosis. Progress of Wound: Today is the 29th treatment of hyperbaric oxygen therapy.? The patient is scheduled for 60 treatments total. Tolerance of hyperbaric oxygen therapy: Hyperbaric oxygen treatment was administered as per the facility's protocol.? Hyperbaric oxygen therapy was administered at 2.0 CHHAYA in 100% oxygen for 90 minutes without air breaks.? The patient tolerated hyperbaric oxygen well, without complications or complaints. Upon emergence of the hyperbaric chamber, the patient's vital signs remained stable.? She was discharged in good condition. Objective Data Objective Data Vital Signs: Vital Signs Temp Pulse Resp BP 96.9 F L 81 17 147/82 H 06/24/22 11:34 06/24/22 11:34 06/24/22 11:34 06/24/22 11:34 Weight: 196 lb 1.696 oz Body Mass Index (BMI) 29.8 Exam Physical Exam Const alert, oriented x3 and no apparent distress General Appearance: cooperative HEENT normocephalic HEENT Narrative: Able to visualize her ear tubes bilaterally Resp normal respiratory effort and clear to auscultation bilaterally Effort and Inspection: able to speak in complete sentences Psych affect normal Assessment/Plan Assessment/Plan (1) Radiation injury: CODE(S): T66.XXXA - Radiation sickness, unspecified, initial encounter (2) History of melanoma: CODE(S): Z85.820 - Personal history of malignant melanoma of skin (3) Soft tissue radionecrosis: CODE(S): L59.8 - Other specified disorders of the skin and subcutaneous tissue related to radiation; Y84.2 - Radiological procedure and radiotherapy as the cause of abnormal reaction of the patient, or of later complication, without mention of misadventure at the time of the procedure PLAN: Plan The patient appears to be tolerating hyperbaric oxygen therapy well, which will be continued as per their medical treatment plan.
[2022-06-27 12:28] VITALS: BP 120/67; BP 143/82; PULSE 69; PULSE 93; RESP 15; RESP 17; TEMP 36.6
[2022-06-28 11:21] VITALS: BP 130/70; BP 146/68; PULSE 74; PULSE 78; RESP 17; TEMP 36.1; TEMP 36.2
[2022-06-28 11:46] VITALS: BP 143/75; PULSE 83; RESP 18; TEMP 36.1; BMI 29.8
--- NOTE | 2022-06-28 14:24 | HP.PCM_ITS ---
History of Present Illness Date of Service: 06/28/22 Chief Complaint: Soft tissue radionecrosis of the right groin with open ul ceration History of Wound: This is a 67-year-old female with a long and complicated past medical history. The patient was diagnosed with melanoma of the right calf in the 1969's. The melanoma was metastatic to lymph nodes. The patient underwent excision of her melanoma with lymphadenectomy in the right groin. She also underwent lengthy radiation treatments at the [facility] in [place], [place]. Melanoma recurred, and the patient was subsequently treated with monoclonal antibodies in 1984. However, due to the presence of severe radiation injury, persisting open wounds in the right thigh, MRSA infection, and severe radiation injury to the right femoral artery, the patient subsequently required right above-knee amputation in 2002. 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 Treatment included local ulcer care and hyperbaric oxygen therapy. She underwent a total of nearly 90 treatments of hyperbaric oxygen therapy. It is known that she tolerated the therapies well, and derived significant benefit. 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 She has also undergone several more sessions of hyperbaric oxygen therapy. She also received a series of 10 EpiFix allografts in the course of previous treatment. Each of the patient's prior courses of treatment in our facility have been protracted, with difficulties encountered in achieving complete healing. Her most recent course of treatment ended with successful healing and discharge in February 2021. The patient presented at this time with a recurrence of her right groin ulceration, again thought to be secondary to soft tissue radiation injury. The ulceration recurred spontaneously approximately 2-3 weeks prior to her presentation. The patient indicates that her health history has not changed since she was last treated in our facility. She has been approved for hyperbaric oxygen therapy treatment for the ulcer in her right groin caused by radionecrosis. Progress of Wound: Today is the 29th treatment of hyperbaric oxygen therapy.? The patient is scheduled for 60 treatments total. Tolerance of hyperbaric oxygen therapy: Today's session of hyperbaric oxygen therapy represents the 30th such session of a planned 60 sessions. Hyperbaric oxygen treatment was administered as per the facility's protocol.? Hyperbaric oxygen therapy was administered at 2.0 CHHAYA in 100% oxygen for 90 minutes without air breaks.? The patient tolerated hyperbaric oxygen well, without complications or complaints. Upon emergence of the hyperbaric chamber, the patient's vital signs remained stable.? She was discharged in good condition. [facility] Medical History Bilateral cataracts Cancer Hemorrhoids Knee pain Radiation injury Home Medications famotidine 20 mg tablet 20 mg PO 06/20/17 [History Last Taken Unknown] pravastatin 20 mg tablet 20 mg PO DAILY 06/20/17 [History Last Taken Unknown] famotidine 40 mg tablet PO 90 days ##90 12/26/17 [History Last Taken Unknown] pravastatin 20 mg tablet PO 90 days ##90 12/26/17 [History Last Taken Unknown] Allergy/AdvReac Type Severity Reaction Status Date / Time No Known Allergies Allergy Verified 02/15/22 09:08 Family History Other Heart disease Hypertension Surgical History Hx of AKA (above knee amputation) Social History Smoking Status: Former smoker alcohol intake: current alcohol intake frequency: holidays/special occasions only Vital Signs Vital Signs Vital Signs: 06/28/22 11:21 06/28/22 11:46 Temperature 97 F L Temperature [Pre Treatment] 97.1 F L Temperature Source Temporal Pulse Rate 83 Pulse Rate [Pre Treatment] 78 Respiratory Rate 18 Respiratory Rate [Pre Treatment] 17 Blood Pressure 143/75 H Blood Pressure [Pre Treatment] 146/68 H Blood Pressure Mean 97 Blood Pressure Source Monitor Blood Pressure Position Semi-Fowlers Blood Pressure Location Left Arm Oxygen Delivery Method Room Air Weight Weight: 196 lb 1.696 oz Body Mass Index (BMI) 29.8 Physical Exam Const alert, oriented x3, no apparent distress and well nourished General Appearance: cooperative and well developed Orientation / Consciousness: awake, oriented to person, oriented to place and oriented to time HEENT normocephalic and head/scalp atraumatic Head and Scalp: normal to inspection, normocephalic and atraumatic External Ear: external ears normal Eyes PERRL and EOMs intact bilaterally General Eye: normal appearance of both eyes Resp normal respiratory effort, normal air movement, no retractions and no use of accessory muscles Effort and Inspection: able to speak in complete sentences Extremity no calf tenderness General Extremity: Negative for clubbing or cyanosis Skin Wound Narrative: A well-healed right above-knee amputation stump is noted. The wound of the patient's right groin persists, but appears smaller in size. There is evidence of peripheral epithelialization. There is no sign of infection or cellulitis. Dimensions are documented elsewhere. There is a small amount of bioburden. Neuro oriented x3, CN's II-XII intact bilaterally, moves all extremities and no focal motor deficits Sensorium / Orientation: awake, alert, oriented to person, oriented to place and oriented to time Psych Appearance: grossly normal and appropriate Attitude: calm Activity / Motor Behavior: appropriate eye contact Speech: normal speech Mood & Affect: euthymic mood Thought Process: normal thought process Thought Content: normal thought content Attention / Concentration: attention grossly intact Debridement Note Debridement Note Wound debrided: Right groin Laterality: Right Type of Debridement: Excisional debridement Anesthesia Used: 5% Lidocaine Gel Depth: Down to and including healthy tissue and in the subcutaneous layer Percentage of wound debrided: 100 Instrument Used: 3mm curette Tissue Removed: Bioburden and fibrous, nonviable tissue Severity: Fat Layer Exposed Amount of bleeding with debridement: Mild Bleeding Controlled with: Compression and gauze Patient tolerated procedure: Patient tolerated procedure well Post-Debridement Measurements and Additional Note: Post-Debridement Measurements/Treatment - Nurse 1 - General Ulcer Assessment Start: 06/09/22 11:29 Freq: Status: Active Protocol: MICHAEL Activity Type Activity Date Activity User E-sign Co-sign Detail Recorded Client Recorded Date Recorded By Document 06/14/22 09:13 PR [id number] 06/14/22 09:20 AK Document 06/21/22 09:08 PR [id number] 06/21/22 09:14 PR Document 06/28/22 11:46 MT [id number] 06/28/22 11:50 MT 06/14/22 06/21/22 06/28/22 09:13 09:08 11:46 - Today's Visit Information Type of service Follow-up Visit Follow-up Visit Follow-up 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/PERCUSSION TEACHER (Physician/PERCUSSION TEACHER (Physician/PERCUSSION TEACHER ) ) ) Arrival Mode Ambulatory Ambulatory Ambulatory Accompanied by self Patient Identification Verified (Name & No Yes Yes ) Patient Requires Transmission-Based No No Precautions Safety Precautions NA NA Height and Weight Body Mass Index (BMI) 29.8 29.8 29.8 BMI Classification Overweight Overweight Overweight Vital Signs Temperature (97.8 F-99.1 F) 97.3 F L 97.9 F 97 F L Temperature Source Temporal Temporal Temporal Pulse Rate (60-100) 84 81 83 Pulse Location Monitor Monitor Respiratory Rate (12-18) 18 Respiratory rate source Monitor Oxygen Delivery Method Room Air Blood Pressure (90/60-120/80) 142/95 H 166/93 H 143/75 H Blood Pressure Mean 110 117 97 Source Monitor Monitor Position Semi-Fowlers Blood Pressure Location Left Arm History Since Last Visit- (Skip if this is Patient's initial visit) Have you changed medications since your No No No last visit? Any new allergies or adverse reactions No No No Had a fall/change in ADL's that may No No No increase risk of falls Signs or symptoms of abuse and/or No No No neglect since last visit Have you been in the hospital since your No No No last visit? Has dressing in place as prescribed Yes Yes Yes Has compression in place as prescribed N/A Yes Yes Has offloadiing in place as prescribed N/A N/A Yes Experienced any changes in pain level or No No management Left Footwear Regular Shoe Regular Shoe Regular Shoe Right Footwear Regular Shoe Regular Shoe Regular Shoe Pain Scale: 0-10 Numeric Is Patient Pain Free? Yes Yes Yes WC - Nurse 1 - General Ulcer Measurement Start: 06/09/22 11:29 Freq: Status: Active Protocol: Activity Type Activity Date Activity User E-sign Co-sign Detail Recorded Client Recorded Date Recorded By Document 06/14/22 09:13 HAI [id number] 06/14/22 09:20 AK Document 06/21/22 09:08 PR [id number] 06/21/22 09:14 AK Document 06/28/22 11:46 MT [id number] 06/28/22 11:50 MT 06/14/22 06/21/22 06/28/22 09:13 09:08 11:46 Wound Center Nurse 1 #11 R Groin -Combined with other wound No No -Current Size (cm) - Length 2.5 0.3 2.5 -Current Size (cm) - Width 0.5 0.5 0.5 -Current Size (cm) - Depth 0.3 0.3 0.2 -Total Square Cm 1.25 0.15 1.25 -Date of Last Picture (Recall this 06/14/22 field) -Photo Taken Yes No -Tunneling No No -Undermining/Tunneling No No -Circular Undermining No No -Change in Wound Grade/Stage No No -Exudate Amt Large Small Small -Exudate Type Yellow/Green Serosanguineous Serosanguineous -Wound Margin Distinct, Distinct, Fibrotic Scar, Outline Outline Thickened Scar Attached Attached -Granulation Amt None Present (0 Small (1-33%) Medium (34-66%) %) -Granulation Quality N/A N/A Pale,[place] -Slough/Fibrin Yes Yes -Necrosis Amt Large (67-100%) Medium (34-66%) Small (1-33%) -Necrotic Tissue Type Adherent Slough Adherent Slough Adherent Slough -Structure Exposed N/A -Texture (Blanche-wound Skin Appearance) No Abnormality, Assessed, Assessed Assessed Scarring -Moisture (Blanche-wound Skin Appearance) No Abnormality, No Abnormality, Assessed Assessed Assessed -Color (Blanche-wound Skin Appearance) No Abnormality, No Abnormality, Assessed Assessed Assessed -Temperature (Blanche-wound Skin No Abnormality No Abnormality No Abnormality Appearance) (Pt Warm) (Pt Warm) (Pt Warm) -Tenderness on Palpation (Blanche-wound No No No Skin Appearance) -Ulcer Cleansing Rinsed/ Rinsed/ Soap and Water Irrigated with Irrigated with Saline Saline -Foul Odor after Cleansing No No No -Anesthetic Used 4% Lidocaine 4% Lidocaine 4% Lidocaine Solution Solution Solution Lower Limb Edema Present NA WC - Nurse 2 - General Ulcer CM Notes Start: 06/09/22 11:29 Freq: Status: Active Protocol: Activity Type Activity Date Activity User E-sign Co-sign Detail Recorded Client Recorded Date Recorded By Document 06/14/22 12:31 PL [id number] 06/14/22 12:32 PL Document 06/21/22 11:39 PL [id number] 06/21/22 11:39 PL Document 06/28/22 12:03 PL [id number] 06/28/22 12:04 PL 06/14/22 06/21/22 06/28/22 12:31 11:39 12:03 Wound Center Nurse 2 #11 R Groin -Time 09:33 09:19 10:05 -Correct Patient Yes Yes Yes -Correct Side, Site, Position Yes Yes Yes -Correct Procedure Yes Yes Yes -Procedure Performed Yes Yes Yes -Type of Procedure Debridement Debridement Debridement -Clinical Debridement Subcutaneous Subcutaneous Subcutaneous -Tissue Removed Subcutaneous Subcutaneous Subcutaneous -Post Debridement (cm) - Length 2.5 0.3 2.5 -Post Debridement (cm) - Width 0.5 0.5 0.5 -Post Debridement (cm) - Depth 0.3 0.3 0.2 -Total Square (Post) (cm) 1.25 0.15 1.25 -Area of Debridement (cm) - Length 2.5 0.3 2.5 -Area of Debridement (cm) - Width 0.5 0.5 0.5 -Total Square (Area) (cm) 1.25 0.15 1.25 -Tunneling No No No -Undermining/Tunneling No No No -Circular Undermining No No No -Wound/Ulcer Outcome Not Healed Not Healed -Ulcer Cleansing Rinsed/ Rinsed/ Rinsed/ Irrigated with Irrigated with Irrigated with Saline Saline Saline -Foul Odor after Cleansing No No No -Bioengineered Tissue No No No -Bleeding Controlled with Pressure Pressure Pressure -Treatment Response Procedure Procedure Procedure Tolerated Well Tolerated Well Tolerated Well -Debridement - Subq, 1st 20sq cm Yes Yes Yes Pain Scale: 0-10 Numeric Is Patient Pain Free? Yes Yes Yes WC - Nurse 3 - General Ulcer D/C NN Start: 06/09/22 11:29 Freq: Status: Active Protocol: Activity Type Activity Date Activity User E-sign Co-sign Detail Recorded Client Recorded Date Recorded By Document 06/14/22 10:40 AK [id number] 06/14/22 10:41 AK Document 06/21/22 09:29 ML [id number] 06/21/22 09:32 ML 06/14/22 06/21/22 10:40 09:29 Wound Care Nurse 3 #11 R Groin -Ulcer Cleansing Rinsed/ Soap and Water Irrigated with Saline -Foul Odor after Cleansing No -Negative Pressure Wound Therapy N/A -Primary Dressing Applied Hysept ($) -Other Dressing iodoform moistened nuguaze, moistened dakin0.25% -Primary Dressing Covered/Secured with Dry Gauze, Dry Gauze, Secured with Secured with Tape Tape Pain Scale: 0-10 Numeric Is Patient Pain Free? Yes Yes WC - Visit Discharge Discharge Condition Stable Ambulatory Status Ambulatory Transportation Private Auto Medication Reconcilliation completed & Yes provided to patient/care provider Clinical Summary of Care Provided Yes Assessment/Plan Assessment/Plan (1) Radiation injury: CODE(S): T66.XXXA - Radiation sickness, unspecified, initial encounter (2) History of melanoma: CODE(S): Z85.820 - Personal history of malignant melanoma of skin (3) Soft tissue radionecrosis: CODE(S): L59.8 - Other specified disorders of the skin and subcutaneous tissue related to radiation; Y84.2 - Radiological procedure and radiotherapy as the cause of abnormal reaction of the patient, or of later complication, without mention of misadventure at the time of the procedure PLAN: Plan The patient appears to be tolerating hyperbaric oxygen therapy well, which will be continued as per the patient's medical treatment plan. The protocol regarding the patient's right groin wound is to be continued. She is to continue using Dakin's-moistened quarter-inch Nu Gauze packing on a daily basis. The patient has been instructed in appropriate means of application. The patient is to follow-up in 2 weeks for reevaluation. Hyperbaric oxygen therapy treatments are to continue. Total time: 26 minutes
--- NOTE | 2022-06-30 10:28 | PCM.HBO.PN ---
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 The patient was diagnosed with melanoma of the right calf in the 1969's. 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 The patient underwent excision of her melanoma with lymphadenectomy in the right groin. She also underwent lengthy radiation treatments at the [facility] in [place], [place]. Melanoma recurred, and the patient was subsequently treated with monoclonal antibodies in 1984. However, due to the presence of severe radiation injury, persisting open wounds in the right thigh, MRSA infection, and severe radiation injury to the right femoral artery, the patient subsequently required right above-knee amputation in 2002. 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 Treatment included local ulcer care and hyperbaric oxygen therapy. She underwent a total of nearly 90 treatments of hyperbaric oxygen therapy. It is known that she tolerated the therapies well, and derived significant benefit. 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 She has also undergone several more sessions of hyperbaric oxygen therapy. She also received a series of 10 EpiFix allografts in the course of previous treatment. Each of the patient's prior courses of treatment in our facility have been protracted, with difficulties encountered in achieving complete healing. Her most recent course of treatment ended with successful healing and discharge in February 2021. The patient presented at this time with a recurrence of her right groin ulceration, again thought to be secondary to soft tissue radiation injury. The ulceration recurred spontaneously approximately 2-3 weeks prior to her presentation. The patient indicates that her health history has not changed since she was last treated in our facility. She has been approved for hyperbaric oxygen therapy treatment for the ulcer in her right groin caused by radionecrosis. Progress of Wound: Today is the 30th treatment of hyperbaric oxygen therapy.? The patient is scheduled for 60 treatments total. Tolerance of hyperbaric oxygen therapy: Today's session of hyperbaric oxygen therapy represents the 30th such session of a planned 60 sessions. Hyperbaric oxygen treatment was administered as per the facility's protocol.? Hyperbaric oxygen therapy was administered at 2.0 CHHAYA in 100% oxygen for 90 minutes without air breaks.? The patient tolerated hyperbaric oxygen well, without complications or complaints. Upon emergence of the hyperbaric chamber, the patient's vital signs remained stable.? She was discharged in good condition. Objective Data Objective Data Vital Signs: Vital Signs Temp Pulse Resp BP O2 Del Method 97 F L 83 18 143/75 H Room Air 06/28/22 11:46 06/28/22 11:46 06/28/22 11:46 06/28/22 11:46 06/28/22 11:46 Oxygen Delivery Method Room Air Weight: 196 lb 1.696 oz Body Mass Index (BMI) 29.8 Exam Physical Exam Const alert, oriented x3 and no apparent distress General Appearance: cooperative HEENT normocephalic HEENT Narrative: Able to visualize her ear tubes bilaterally Resp normal respiratory effort and clear to auscultation bilaterally Effort and Inspection: able to speak in complete sentences Psych affect normal Nursing Assessment and Debridement Post-Debridement Measurements and Additional Note: Post-Debridement Measurements/Treatment - Nurse 1 - General Ulcer Assessment Start: 06/09/22 11:29 Freq: Status: Active Protocol: [email or web address].[email or web address] Activity Type Activity Date Activity User E-sign Co-sign Detail Recorded Client Recorded Date Recorded By Document 06/28/22 11:46 TX [id number] 06/28/22 11:50 [place] 06/28/22 11:46 - Today's Visit Information Type of service Follow-up 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/PHARMACY ACCOUNT DIRECTOR ) Arrival Mode Ambulatory Accompanied by self Patient Identification Verified (Name & Yes ) Height and Weight Body Mass Index (BMI) 29.8 BMI Classification Overweight Vital Signs Temperature (97.8 F-99.1 F) 97 F L Temperature Source Temporal Pulse Rate (60-100) 83 Pulse Location Monitor Respiratory Rate (12-18) 18 Respiratory rate source Monitor Oxygen Delivery Method Room Air Blood Pressure (90/60-120/80) 143/75 H Blood Pressure Mean (mm Hg) 97 Source Monitor Position Semi-Fowlers Blood Pressure Location Left Arm History Since Last Visit- (Skip if this is Patient's initial visit) Have you changed medications since your No last visit? Any new allergies or adverse reactions No Had a fall/change in ADL's that may No increase risk of falls Signs or symptoms of abuse and/or No neglect since last visit Have you been in the hospital since your No last visit? Has dressing in place as prescribed Yes Has compression in place as prescribed Yes Has offloadiing in place as prescribed Yes Experienced any changes in pain level or No management Left Footwear Regular Shoe Right Footwear Regular Shoe Pain Scale: 0-10 Numeric Is Patient Pain Free? Yes - Nurse 1 - General Ulcer Measurement Start: 06/09/22 11:29 Freq: Status: Active Protocol: Activity Type Activity Date Activity User E-sign Co-sign Detail Recorded Client Recorded Date Recorded By Document 06/28/22 11:46 MT [id number] 06/28/22 11:50 MT 06/28/22 11:46 Wound Center Nurse 1 #11 R Groin -Current Size (cm) - Length 2.5 -Current Size (cm) - Width 0.5 -Current Size (cm) - Depth 0.2 -Total Square Cm 1.25 -Exudate Amt Small -Exudate Type Serosanguineous -Wound Margin Fibrotic Scar, Thickened Scar -Granulation Amt Medium (34-66%) -Granulation Quality Pale,Chipley -Necrosis Amt Small (1-33%) -Necrotic Tissue Type Adherent Slough -Texture (Blanche-wound Skin Appearance) Assessed -Moisture (Blanche-wound Skin Appearance) Assessed -Color (Blanche-wound Skin Appearance) Assessed -Temperature (Blanche-wound Skin No Abnormality Appearance) (Pt Warm) -Tenderness on Palpation (Blanche-wound No Skin Appearance) -Ulcer Cleansing Soap and Water -Foul Odor after Cleansing No -Anesthetic Used 4% Lidocaine Solution Lower Limb Edema Present NA - Nurse 2 - General Ulcer CM Notes Start: 06/09/22 11:29 Freq: Status: Active Protocol: Activity Type Activity Date Activity User E-sign Co-sign Detail Recorded Client Recorded Date Recorded By Document 06/28/22 12:03 PL [id number] 06/28/22 12:04 PL 06/28/22 12:03 Wound Center Nurse 2 #11 R Groin -Time 10:05 -Correct Patient Yes -Correct Side, Site, Position Yes -Correct Procedure Yes -Procedure Performed Yes -Type of Procedure Debridement -Clinical Debridement Subcutaneous -Tissue Removed Subcutaneous -Post Debridement (cm) - Length 2.5 -Post Debridement (cm) - Width 0.5 -Post Debridement (cm) - Depth 0.2 -Total Square (Post) (cm) 1.25 -Area of Debridement (cm) - Length 2.5 -Area of Debridement (cm) - Width 0.5 -Total Square (Area) (cm) 1.25 -Tunneling No -Undermining/Tunneling No -Circular Undermining No -Ulcer Cleansing Rinsed/ Irrigated with Saline -Foul Odor after Cleansing No -Bioengineered Tissue No -Bleeding Controlled with Pressure -Treatment Response Procedure Tolerated Well -Debridement - Subq, 1st 20sq cm Yes Pain Scale: 0-10 Numeric Is Patient Pain Free? Yes Charges/Coding Wound Center CF Procedures HBO Supervision: [id number] Hyperbaric Oxygen; supervision Assessment/Plan Assessment/Plan (1) Radiation injury: CODE(S): T66.XXXA - Radiation sickness, unspecified, initial encounter (2) History of melanoma: CODE(S): Z85.820 - Personal history of malignant melanoma of skin (3) Soft tissue radionecrosis: CODE(S): L59.8 - Other specified disorders of the skin and subcutaneous tissue related to radiation; Y84.2 - Radiological procedure and radiotherapy as the cause of abnormal reaction of the patient, or of later complication, without mention of misadventure at the time of the procedure PLAN: Plan The patient appears to be tolerating hyperbaric oxygen therapy well, which will be continued as per her medical plan. This note was generated with [employer]acemeteration software. It may contain incorrect words, spelling, and punctuation that were not noted in checking the note before signing.
[2022-06-30 11:05] VITALS: BP 138/81; BP 139/61; PULSE 75; PULSE 83; RESP 16; RESP 17; TEMP 36.2; TEMP 36.4
--- NOTE | 2022-07-05 10:33 | PCM.HBO.PN ---
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 The patient was diagnosed with melanoma of the right calf in the 1969's. The melanoma was metastatic to lymph nodes. The patient underwent excision of her melanoma with lymphadenectomy in the right groin. She also underwent lengthy radiation treatments at the [facility] in [place], [place]. Melanoma recurred, and the patient was subsequently treated with monoclonal antibodies in 1984. However, due to the presence of severe radiation injury, persisting open wounds in the right thigh, MRSA infection, and severe radiation injury to the right femoral artery, the patient subsequently required right above-knee amputation in 2002. 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 Treatment included local ulcer care and hyperbaric oxygen therapy. She underwent a total of nearly 90 treatments of hyperbaric oxygen therapy. It is known that she tolerated the therapies well, and derived significant benefit. 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 She has also undergone several more sessions of hyperbaric oxygen therapy. She also received a series of 10 EpiFix allografts in the course of previous treatment. Each of the patient's prior courses of treatment in our facility have been protracted, with difficulties encountered in achieving complete healing. Her most recent course of treatment ended with successful healing and discharge in February 2021. The patient presented at this time with a recurrence of her right groin ulceration, again thought to be secondary to soft tissue radiation injury. The ulceration recurred spontaneously approximately 2-3 weeks prior to her presentation. The patient indicates that her health history has not changed since she was last treated in our facility. She has been approved for hyperbaric oxygen therapy treatment for the ulcer in her right groin caused by radionecrosis. Progress of Wound: Today is the 3 treatment of hyperbaric oxygen therapy.? The patient is scheduled for 60 treatments total. nd Tolerance of hyperbaric oxygen therapy: Today's session of hyperbaric oxygen therapy represents the 30th such session of a planned 60 sessions. Hyperbaric oxygen treatment was administered as per the facility's protocol.? Hyperbaric oxygen therapy was administered at 2.0 CHHAYA in 100% oxygen for 90 minutes without air breaks.? The patient tolerated hyperbaric oxygen well, without complications or complaints. Upon emergence of the hyperbaric chamber, the patient's vital signs remained stable.? She was discharged in good condition. Objective Data Objective Data Vital Signs: Vital Signs Temp Pulse Resp BP O2 Del Method 97.5 F L 83 16 138/81 H Room Air 06/30/22 11:05 06/30/22 11:05 06/30/22 11:05 06/30/22 11:05 06/28/22 11:46 Oxygen Delivery Method Room Air Weight: 196 lb 1.696 oz Body Mass Index (BMI) 29.8 Exam Physical Exam Const alert, oriented x3 and no apparent distress General Appearance: cooperative HEENT normocephalic HEENT Narrative: Able to visualize her ear tubes bilaterally Resp normal respiratory effort and clear to auscultation bilaterally Effort and Inspection: able to speak in complete sentences Psych affect normal Assessment/Plan Assessment/Plan (1) Radiation injury: CODE(S): T66.XXXA - Radiation sickness, unspecified, initial encounter (2) History of melanoma: CODE(S): Z85.820 - Personal history of malignant melanoma of skin (3) Soft tissue radionecrosis: CODE(S): L59.8 - Other specified disorders of the skin and subcutaneous tissue related to radiation; Y84.2 - Radiological procedure and radiotherapy as the cause of abnormal reaction of the patient, or of later complication, without mention of misadventure at the time of the procedure PLAN: Plan The patient appears to be tolerating hyperbaric oxygen therapy well, which will be continued as per her medical plan. This note was generated with [employer]or[employer] software. It may contain incorrect words, spelling, and punctuation that were not noted in checking the note before signing.
[2022-07-05 11:51] VITALS: BP 132/72; BP 135/66; PULSE 71; PULSE 85; RESP 16; RESP 17; TEMP 36.1; TEMP 36.3
[2022-07-06 11:10] VITALS: BP 127/58; BP 152/95; PULSE 74; PULSE 87; RESP 16; TEMP 36.2; TEMP 36.5
--- NOTE | 2022-07-06 12:18 | HBO.PN.PCM_ITS ---
History of Present Illness Date of Service: 07/06/22 Chief Complaint: Soft tissue radionecrosis of the right groin with open ul ceration History of Wound: This is a 67-year-old female with a long and complicated past medical history. The patient was diagnosed with melanoma of the right calf in the 1969's. The melanoma was metastatic to lymph nodes. The patient underwent excision of her melanoma with lymphadenectomy in the right groin. She also underwent lengthy radiation treatments at the [facility] in [place], [place]. Melanoma recurred, and the patient was subsequently treated with monoclonal antibodies in 1984. However, due to the presence of severe radiation injury, persisting open wounds in the right thigh, MRSA infection, and severe radiation injury to the right femoral artery, the patient subsequently required right above-knee amputation in 2002. 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 Treatment included local ulcer care and hyperbaric oxygen therapy. She underwent a total of nearly 90 treatments of hyperbaric oxygen therapy. It is known that she tolerated the therapies well, and derived significant benefit. 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 She has also undergone several more sessions of hyperbaric oxygen therapy. She also received a series of 10 EpiFix allografts in the course of previous treatment. Each of the patient's prior courses of treatment in our facility have been protracted, with difficulties encountered in achieving complete healing. Her most recent course of treatment ended with successful healing and discharge in February 2021. The patient presented at this time with a recurrence of her right groin ulceration, again thought to be secondary to soft tissue radiation injury. The ulceration recurred spontaneously approximately 2-3 weeks prior to her presentation. The patient indicates that her health history has not changed since she was last treated in our facility. She has been approved for hyperbaric oxygen therapy treatment for the ulcer in her right groin caused by radionecrosis. Progress of Wound: Today is the 33 treatment of hyperbaric oxygen therapy.? The patient is scheduled for 60 treatments total. nd Tolerance of hyperbaric oxygen therapy: Today's session of hyperbaric oxygen therapy represents the 33rd such session of a planned 60 sessions. Hyperbaric oxygen treatment was administered as per the facility's protocol.? Hyperbaric oxygen therapy was administered at 2.0 CHHAYA in 100% oxygen for 90 minutes without air breaks.? The patient tolerated hyperbaric oxygen well, without complications or complaints. Upon emergence of the hyperbaric chamber, the patient's vital signs remained stable.? She was discharged in good condition. Subjective Subjective Patient has no concerns Objective Data Objective Data Admitted and discharged in good condition vital signs stable Vital Signs: Vital Signs Temp Pulse Resp BP O2 Del Method 97.2 F L 87 16 152/95 H Room Air 07/06/22 11:10 07/06/22 11:10 07/06/22 11:10 07/06/22 11:10 06/28/22 11:46 Oxygen Delivery Method Room Air Weight: 196 lb 1.696 oz Body Mass Index (BMI) 29.8 Exam Physical Exam Const alert and oriented x3 General Appearance: cooperative Resp normal respiratory effort Effort and Inspection: able to speak in complete sentences Cardio regular rate and regular rhythm Extremity Extremity Narrative: Here for soft tissue radiation necrosis Assessment/Plan Assessment/Plan (1) Radiation injury: CODE(S): T66.XXXA - Radiation sickness, unspecified, initial encounter (2) History of melanoma: CODE(S): Z85.820 - Personal history of malignant melanoma of skin (3) Soft tissue radionecrosis: CODE(S): L59.8 - Other specified disorders of the skin and subcutaneous tissue related to radiation; Y84.2 - Radiological procedure and radiotherapy as the cause of abnormal reaction of the patient, or of later complication, without mention of misadventure at the time of the procedure PLAN: Plan The patient appears to be tolerating hyperbaric oxygen therapy well, which will be continued as per her medical plan. This note was generated with [employer] software. It may contain incorrect words, spelling, and punctuation that were not noted in checking the note before signing.
== END 2022-07-09 23:59 | disposition home or self-care (01) ==
LOC: WC 10:30
PROVIDERS: PCP Family Medicine; Visit Provider Surgery
DX: L59.8 Other specified disorders of the skin and subcutaneous tissue related to radiation (principal); Z89.619 Acquired absence of unspecified leg above knee; L97.112 Non-pressure chronic ulcer of right thigh with fat layer exposed; L98.492 Non-pressure chronic ulcer of skin of other sites with fat layer exposed; Z85.820 Personal history of malignant melanoma of skin; Z87.891 Personal history of nicotine dependence; Z86.14 Personal history of Methicillin resistant Staphylococcus aureus infection; T66.XXXA Radiation sickness, unspecified, initial encounter; Y84.2 Radiological procedure and radiotherapy as the cause of abnormal reaction of the patient, or of later complication, without mention of misadventure at the time of the procedure
CPT/HCPCS: 11042; 99183; G0277

== ENCOUNTER 2022-08-09 09:15 | Outpatient (RCR) | payer MEDICARE, OTHER, SELFPAY ==
[2022-07-10 00:14] VITALS: BP 127/58; PULSE 74; RESP 16; TEMP 36.5; BMI 29.8
[2022-07-12 09:09] VITALS: BP 160/96; PULSE 88; TEMP 36.2; BMI 29.8
[2022-07-12 12:06] VITALS: BP 127/67; BP 138/66; PULSE 71; PULSE 79; RESP 16; RESP 17; TEMP 36.4; TEMP 36.8
--- NOTE | 2022-07-12 14:04 | HP.PCM_ITS ---
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 The patient was diagnosed with melanoma of the right calf in the 1969's. The melanoma was metastatic to lymph nodes. The patient underwent excision of her melanoma with lymphadenectomy in the right groin. She also underwent lengthy radiation treatments at the [facility] in [place], [place]. Melanoma recurred, and the patient was subsequently treated with monoclonal antibodies in 1984. However, due to the presence of severe radiation injury, persisting open wounds in the right thigh, MRSA infection, and severe radiation injury to the right femoral artery, the patient subsequently required right above-knee amputation in 2002. 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 Treatment included local ulcer care and hyperbaric oxygen therapy. She underwent a total of nearly 90 treatments of hyperbaric oxygen therapy. It is known that she tolerated the therapies well, and derived significant benefit. 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 She has also undergone several more sessions of hyperbaric oxygen therapy. She also received a series of 10 EpiFix allografts in the course of previous treatment. Each of the patient's prior courses of treatment in our facility have been protracted, with difficulties encountered in achieving complete healing. Her most recent course of treatment ended with successful healing and discharge in February 2021. The patient presented at this time with a recurrence of her right groin ulceration, again thought to be secondary to soft tissue radiation injury. The ulceration recurred spontaneously approximately 2-3 weeks prior to her presentation. The patient indicates that her health history has not changed since she was last treated in our facility. She has been approved for hyperbaric oxygen therapy treatment for the ulcer in her right groin caused by radionecrosis. HBO therapy: Hyperbaric oxygen therapy was administered as per the facility's protocol. Today's session represents the 34th session of a planned 60 such sessions. Hyperbaric oxygen therapy was administered at 2 eve for 90 minutes with no air breaks. The patient tolerated hyperbaric oxygen therapy well, without complaints or complications. Upon emergence from the hyperbaric chamber, the patient's vital signs remained stable. The patient was discharged in good condition. [facility] Medical History Bilateral cataracts Cancer Hemorrhoids Knee pain Radiation injury Home Medications famotidine 20 mg tablet 20 mg PO 06/20/17 [History Last Taken Unknown] pravastatin 20 mg tablet 20 mg PO DAILY 06/20/17 [History Last Taken Unknown] famotidine 40 mg tablet PO 90 days ##90 12/26/17 [History Last Taken Unknown] pravastatin 20 mg tablet PO 90 days ##90 12/26/17 [History Last Taken Unknown] Allergy/AdvReac Type Severity Reaction Status Date / Time No Known Allergies Allergy Verified 02/15/22 09:08 Family History Other Heart disease Hypertension Surgical History Hx of AKA (above knee amputation) Social History Smoking Status: Former smoker alcohol intake: current alcohol intake frequency: holidays/special occasions only Vital Signs Vital Signs Vital Signs: 07/12/22 09:09 07/12/22 12:06 Temperature 97.2 F L Temperature [Post Treatment] 97.6 F L Temperature [Pre Treatment] 98.3 F Temperature Source Temporal Pulse Rate 88 Pulse Rate [Post Treatment] 71 Pulse Rate [Pre Treatment] 79 Respiratory Rate [Post Treatment] 17 Respiratory Rate [Pre Treatment] 16 Blood Pressure 160/96 H Blood Pressure [Post Treatment] 138/66 H Blood Pressure [Pre Treatment] 127/67 H Blood Pressure Mean 117 Blood Pressure Source Monitor Weight Weight: 196 lb 1.696 oz Body Mass Index (BMI) 29.8 Physical Exam Const alert, oriented x3 and no apparent distress General Appearance: cooperative, comfortable, well kempt and well developed Orientation / Consciousness: awake, oriented to person, oriented to place and oriented to time Exam Limitations: no limitations HEENT normocephalic and head/scalp atraumatic Head and Scalp: normal to inspection Face and Sinus: normal facial exam Eyes PERRL and EOMs intact bilaterally General Eye: normal appearance of both eyes Neck full ROM Resp normal respiratory effort, normal air movement, no retractions and no use of accessory muscles Effort and Inspection: able to speak in complete sentences Extremity Extremity Narrative: Here for 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 An ulceration is noted in the right groin, very little changed from prior weeks. There is no sign of infection or cellulitis. Dimensions are documented elsewhere. There is a moderate amount of bioburden. In general, there has been ongoing improvement, with a decrease in the amount of nonviable and necrotic tissue within the base of the ulceration. Neuro oriented x3, CN's II-XII intact bilaterally, moves all extremities and no focal motor deficits Sensorium / Orientation: awake, alert, oriented to person, oriented to place and oriented to time Debridement Note Debridement Note Wound debrided: Right groin Laterality: Right Type of Debridement: Excisional debridement Anesthesia Used: 5% Lidocaine Gel Depth: Down to and including healthy tissue and in the subcutaneous layer Percentage of wound debrided: 100 Instrument Used: 3mm curette Tissue Removed: Bioburden and fibrous, nonviable tissue Severity: Fat Layer Exposed Amount of bleeding with debridement: Mild Bleeding Controlled with: Compression and gauze Patient tolerated procedure: Patient tolerated procedure well Post-Debridement Measurements and Additional Note: Post-Debridement Measurements/Treatment - Nurse 1 - General Ulcer Assessment Start: 07/12/22 09:09 Freq: Status: Active Protocol: KISHA.LOWEXT Activity Type Activity Date Activity User E-sign Co-sign Detail Recorded Client Recorded Date Recorded By Document 07/12/22 09:09 CT [id number] 07/12/22 09:12 HAI 07/12/22 09:09 - Today's Visit Information Type of service 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 Any new allergies or adverse reactions No Had a fall/change in ADL's that may No increase risk of falls Signs or symptoms of abuse and/or No neglect since last visit Have you been in the hospital since your No last visit? Has dressing in place as prescribed Yes Has compression in place as prescribed Yes Has offloadiing in place as prescribed N/A Experienced any changes in pain level or No management Left Footwear Regular Shoe Right Footwear Regular Shoe Pain Scale: 0-10 Numeric Is Patient Pain Free? Yes WC - Nurse 1 - General Ulcer Measurement Start: 07/12/22 09:09 Freq: Status: Active Protocol: Activity Type Activity Date Activity User E-sign Co-sign Detail Recorded Client Recorded Date Recorded By Document 07/12/22 09:09 HAI [id number] 07/12/22 09:12 HAI 07/12/22 09:09 Wound Center Nurse 1 #11 R Groin -Combined with other wound No -Current Size (cm) - Length 2.5 -Current Size (cm) - Width 0.3 -Current Size (cm) - Depth 0.3 -Total Square Cm 0.75 -Date of Last Picture (Recall this 07/12/22 field) -Photo Taken Yes -Epithelialization None Present -Tunneling No -Undermining/Tunneling No -Circular Undermining No -Exudate Amt Small -Exudate Type Serosanguineous -Wound Margin Distinct, Outline Attached -Granulation Amt Medium (34-66%) -Granulation Quality [place] -Slough/Fibrin Yes -Necrosis Amt Medium (34-66%) -Necrotic Tissue Type Adherent Slough -Structure Exposed N/A -Texture (Blanche-wound Skin Appearance) Assessed, Scarring -Moisture (Blanche-wound Skin Appearance) No Abnormality, Assessed -Color (Blanche-wound Skin Appearance) No Abnormality, Assessed -Temperature (Blanche-wound Skin No Abnormality Appearance) (Pt Warm) -Tenderness on Palpation (Blanche-wound No Skin Appearance) -Ulcer Cleansing Rinsed/ Irrigated with Saline -Foul Odor after Cleansing No -Anesthetic Used 4% Lidocaine Solution Lower Limb Edema Present No WC - Nurse 2 - General Ulcer CM Notes Start: 07/12/22 09:09 Freq: Status: Active Protocol: Activity Type Activity Date Activity User E-sign Co-sign Detail Recorded Client Recorded Date Recorded By Document 07/12/22 12:28 PL [id number] 07/12/22 12:30 PL 07/12/22 12:28 Wound Center Nurse 2 #11 R Groin -Time 09:20 -Correct Patient Yes -Correct Side, Site, Position Yes -Correct Procedure Yes -Procedure Performed Yes -Type of Procedure Debridement -Clinical Debridement Subcutaneous -Tissue Removed Dermis -Post Debridement (cm) - Length 2.5 -Post Debridement (cm) - Width 0.3 -Post Debridement (cm) - Depth 0.2 -Total Square (Post) (cm) 0.75 -Area of Debridement (cm) - Length 2.5 -Area of Debridement (cm) - Width 0.3 -Total Square (Area) (cm) 0.75 -Tunneling No -Undermining/Tunneling No -Circular Undermining No -Wound/Ulcer Outcome Not Healed -Ulcer Cleansing Rinsed/ Irrigated with Saline -Foul Odor after Cleansing No -Bioengineered Tissue No -Debridement - Subq, 1st 20sq cm Yes Pain Scale: 0-10 Numeric Is Patient Pain Free? Yes - Nurse 3 - General Ulcer D/C NN Start: 07/12/22 09:09 Freq: Status: Active Protocol: Activity Type Activity Date Activity User E-sign Co-sign Detail Recorded Client Recorded Date Recorded By Document 07/12/22 09:28 AK [id number] 07/12/22 09:28 AK 07/12/22 09:28 Wound Care Nurse 3 #11 R Groin -Ulcer Cleansing Rinsed/ Irrigated with Saline -Foul Odor after Cleansing No -Negative Pressure Wound Therapy N/A -Other Dressing nugauze in dakins -Primary Dressing Covered/Secured with Dry Gauze, Secured with Tape Pain Scale: 0-10 Numeric Is Patient Pain Free? Yes WC - Visit Discharge Discharge Condition Stable Ambulatory Status Ambulatory Transportation Private Auto Medication Reconcilliation completed & Yes provided to patient/care provider Clinical Summary of Care Provided Yes Assessment/Plan Assessment/Plan (1) Radiation injury: CODE(S): T66.XXXA - Radiation sickness, unspecified, initial encounter (2) History of melanoma: CODE(S): Z85.820 - Personal history of malignant melanoma of skin (3) Soft tissue radionecrosis: CODE(S): L59.8 - Other specified disorders of the skin and subcutaneous tissue related to radiation; Y84.2 - Radiological procedure and radiotherapy as the cause of abnormal reaction of the patient, or of later complication, without mention of misadventure at the time of the procedure PLAN: Plan The patient appears to be tolerating hyperbaric oxygen therapy well, which will be continued as per her medical plan. We are also to continue the use of Dakin's-moistened 1/4 inch Nu Gauze packing to the right groin ulceration. This is to be applied on a daily basis, and the patient is well acquainted with the technique. The patient is to return in 1 week for reassessment, while returning each week today for hyperbaric oxygen therapy treatments. Total time: 26 minutes This note was generated with [employer] software. It may contain incorrect words, spelling, and punctuation that were not noted in checking the note before signing.
--- NOTE | 2022-07-13 09:33 | PCM.HBO.PN ---
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 The patient was diagnosed with melanoma of the right calf in the 1969's. The melanoma was metastatic to lymph nodes. The patient underwent excision of her melanoma with lymphadenectomy in the right groin. She also underwent lengthy radiation treatments at the [facility] in [place], [place]. Melanoma recurred, and the patient was subsequently treated with monoclonal antibodies in 1984. However, due to the presence of severe radiation injury, persisting open wounds in the right thigh, MRSA infection, and severe radiation injury to the right femoral artery, the patient subsequently required right above-knee amputation in 2002. 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 Treatment included local ulcer care and hyperbaric oxygen therapy. She underwent a total of nearly 90 treatments of hyperbaric oxygen therapy. It is known that she tolerated the therapies well, and derived significant benefit. 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 She has also undergone several more sessions of hyperbaric oxygen therapy. She also received a series of 10 EpiFix allografts in the course of previous treatment. Each of the patient's prior courses of treatment in our facility have been protracted, with difficulties encountered in achieving complete healing. Her most recent course of treatment ended with successful healing and discharge in February 2021. The patient presented at this time with a recurrence of her right groin ulceration, again thought to be secondary to soft tissue radiation injury. The ulceration recurred spontaneously approximately 2-3 weeks prior to her presentation. The patient indicates that her health history has not changed since she was last treated in our facility. She has been approved for hyperbaric oxygen therapy treatment for the ulcer in her right groin caused by radionecrosis. HBO therapy: Hyperbaric oxygen therapy was administered as per the facility's protocol. Today's session represents the 34th session of a planned 60 such sessions. Hyperbaric oxygen therapy was administered at 2 eve for 90 minutes with no air breaks. The patient tolerated hyperbaric oxygen therapy well, without complaints or complications. Upon emergence from the hyperbaric chamber, the patient's vital signs remained stable. The patient was discharged in good condition. Subjective Subjective Today is the 35th treatment of hyperbaric oxygen therapy.? The patient is scheduled for 60 treatments total. Tolerance of hyperbaric oxygen therapy: Hyperbaric oxygen treatment was administered as per the facility's protocol.? Hyperbaric oxygen therapy was administered at 2.0 CHHAYA in 100% oxygen for 90 minutes without air breaks.? The patient tolerated hyperbaric oxygen well, without complications or complaints. Upon emergence of the hyperbaric chamber, the patient's vital signs remained stable.? She was discharged in good condition. Objective Data Objective Data Vital Signs: Vital Signs Temp Pulse Resp BP 98.3 F 79 16 127/67 H 07/12/22 12:06 07/12/22 12:06 07/12/22 12:06 07/12/22 12:06 Weight: 196 lb 1.696 oz Body Mass Index (BMI) 29.8 Exam Physical Exam Const alert, oriented x3 and no apparent distress General Appearance: cooperative HEENT normocephalic HEENT Narrative: Able to visualize her ear tubes bilaterally Resp normal respiratory effort and clear to auscultation bilaterally Effort and Inspection: able to speak in complete sentences Psych affect normal Nursing Assessment and Debridement Post-Debridement Measurements and Additional Note: Post-Debridement Measurements/Treatment WC - Nurse 1 - General Ulcer Assessment Start: 07/12/22 09:09 Freq: Status: Active Protocol: WC.LOWEXT Activity Type Activity Date Activity User E-sign Co-sign Detail Recorded Client Recorded Date Recorded By Document 07/12/22 09:09 VA [id number] 07/12/22 09:12 HAI 07/12/22 09:09 - Today's Visit Information Type of service Follow-up 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 Any new allergies or adverse reactions No Had a fall/change in ADL's that may No increase risk of falls Signs or symptoms of abuse and/or No neglect since last visit Have you been in the hospital since your No last visit? Has dressing in place as prescribed Yes Has compression in place as prescribed Yes Has offloadiing in place as prescribed N/A Experienced any changes in pain level or No management Left Footwear Regular Shoe Right Footwear Regular Shoe Pain Scale: 0-10 Numeric Is Patient Pain Free? Yes WC - Nurse 1 - General Ulcer Measurement Start: 07/12/22 09:09 Freq: Status: Active Protocol: Activity Type Activity Date Activity User E-sign Co-sign Detail Recorded Client Recorded Date Recorded By Document 07/12/22 09:09 HAI [id number] 07/12/22 09:12 HAI 07/12/22 09:09 Wound Center Nurse 1 #11 R Groin -Combined with other wound No -Current Size (cm) - Length 2.5 -Current Size (cm) - Width 0.3 -Current Size (cm) - Depth 0.3 -Total Square Cm 0.75 -Date of Last Picture (Recall this 07/12/22 field) -Photo Taken Yes -Epithelialization None Present -Tunneling No -Undermining/Tunneling No -Circular Undermining No -Exudate Amt Small -Exudate Type Serosanguineous -Wound Margin Distinct, Outline Attached -Granulation Amt Medium (34-66%) -Granulation Quality [place] -Slough/Fibrin Yes -Necrosis Amt Medium (34-66%) -Necrotic Tissue Type Adherent Slough -Structure Exposed N/A -Texture (Blanche-wound Skin Appearance) Assessed, Scarring -Moisture (Blanche-wound Skin Appearance) No Abnormality, Assessed -Color (Blanche-wound Skin Appearance) No Abnormality, Assessed -Temperature (Blanche-wound Skin No Abnormality Appearance) (Pt Warm) -Tenderness on Palpation (Blanche-wound No Skin Appearance) -Ulcer Cleansing Rinsed/ Irrigated with Saline -Foul Odor after Cleansing No -Anesthetic Used 4% Lidocaine Solution Lower Limb Edema Present No WC - Nurse 2 - General Ulcer CM Notes Start: 07/12/22 09:09 Freq: Status: Active Protocol: Activity Type Activity Date Activity User E-sign Co-sign Detail Recorded Client Recorded Date Recorded By Document 07/12/22 12:28 PL [id number] 07/12/22 12:30 PL 07/12/22 12:28 Wound Center Nurse 2 #11 R Groin -Time 09:20 -Correct Patient Yes -Correct Side, Site, Position Yes -Correct Procedure Yes -Procedure Performed Yes -Type of Procedure Debridement -Clinical Debridement Subcutaneous -Tissue Removed Dermis -Post Debridement (cm) - Length 2.5 -Post Debridement (cm) - Width 0.3 -Post Debridement (cm) - Depth 0.2 -Total Square (Post) (cm) 0.75 -Area of Debridement (cm) - Length 2.5 -Area of Debridement (cm) - Width 0.3 -Total Square (Area) (cm) 0.75 -Tunneling No -Undermining/Tunneling No -Circular Undermining No -Wound/Ulcer Outcome Not Healed -Ulcer Cleansing Rinsed/ Irrigated with Saline -Foul Odor after Cleansing No -Bioengineered Tissue No -Debridement - Subq, 1st 20sq cm Yes Pain Scale: 0-10 Numeric Is Patient Pain Free? Yes - Nurse 3 - General Ulcer D/C NN Start: 07/12/22 09:09 Freq: Status: Active Protocol: Activity Type Activity Date Activity User E-sign Co-sign Detail Recorded Client Recorded Date Recorded By Document 07/12/22 09:28 AK [id number] 07/12/22 09:28 AK 07/12/22 09:28 Wound Care Nurse 3 #11 R Groin -Ulcer Cleansing Rinsed/ Irrigated with Saline -Foul Odor after Cleansing No -Negative Pressure Wound Therapy N/A -Other Dressing nugauze in dakins -Primary Dressing Covered/Secured with Dry Gauze, Secured with Tape Pain Scale: 0-10 Numeric Is Patient Pain Free? Yes WC - Visit Discharge Discharge Condition Stable Ambulatory Status Ambulatory Transportation Private Auto Medication Reconcilliation completed & Yes provided to patient/care provider Clinical Summary of Care Provided Yes Assessment/Plan Assessment/Plan (1) Radiation injury: CODE(S): T66.XXXA - Radiation sickness, unspecified, initial encounter (2) History of melanoma: CODE(S): Z85.820 - Personal history of malignant melanoma of skin (3) Soft tissue radionecrosis: CODE(S): L59.8 - Other specified disorders of the skin and subcutaneous tissue related to radiation; Y84.2 - Radiological procedure and radiotherapy as the cause of abnormal reaction of the patient, or of later complication, without mention of misadventure at the time of the procedure PLAN: Plan The patient appears to be tolerating hyperbaric oxygen therapy well, which will be continued as per her medical plan. This note was generated with [employer] dictation software. It may contain incorrect words, spelling, and punctuation that were not noted in checking the note before signing.
[2022-07-13 11:37] VITALS: BP 122/60; BP 154/79; PULSE 67; PULSE 88; RESP 15; RESP 16
[2022-07-14 09:32] VITALS: BP 141/69; BP 141/72; PULSE 70; PULSE 83; RESP 16; RESP 17; TEMP 36
--- NOTE | 2022-07-14 10:35 | PCM.HBO.PN ---
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 The patient was diagnosed with melanoma of the right calf in the 1969's. The melanoma was metastatic to lymph nodes. The patient underwent excision of her melanoma with lymphadenectomy in the right groin. She also underwent lengthy radiation treatments at the [facility] in [place], [place]. Melanoma recurred, and the patient was subsequently treated with monoclonal antibodies in 1984. However, due to the presence of severe radiation injury, persisting open wounds in the right thigh, MRSA infection, and severe radiation injury to the right femoral artery, the patient subsequently required right above-knee amputation in 2002. 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 Treatment included local ulcer care and hyperbaric oxygen therapy. She underwent a total of nearly 90 treatments of hyperbaric oxygen therapy. It is known that she tolerated the therapies well, and derived significant benefit. 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 She has also undergone several more sessions of hyperbaric oxygen therapy. She also received a series of 10 EpiFix allografts in the course of previous treatment. Each of the patient's prior courses of treatment in our facility have been protracted, with difficulties encountered in achieving complete healing. Her most recent course of treatment ended with successful healing and discharge in February 2021. The patient presented at this time with a recurrence of her right groin ulceration, again thought to be secondary to soft tissue radiation injury. The ulceration recurred spontaneously approximately 2-3 weeks prior to her presentation. The patient indicates that her health history has not changed since she was last treated in our facility. She has been approved for hyperbaric oxygen therapy treatment for the ulcer in her right groin caused by radionecrosis. Progress of Wound: Today's session represents the 35th session of planned 60 sessions. Hyperbaric oxygen therapy was administered per the facility's protocol at 2 eve for 90 minutes with no air breaks. The patient tolerated hyperbaric oxygen therapy well, without complaints or complications. Upon emergence from the hyperbaric chamber, the patient's vital signs remained stable. The patient was discharged in good condition. Objective Data Objective Data Vital Signs: Vital Signs Temp Pulse Resp BP 96.8 F L 83 16 141/72 H 07/14/22 09:32 07/14/22 09:32 07/14/22 09:32 07/14/22 09:32 Weight: 196 lb 1.696 oz Body Mass Index (BMI) 29.8 Exam Physical Exam Const alert, oriented x3 and no apparent distress General Appearance: cooperative HEENT normocephalic HEENT Narrative: Able to visualize her ear tubes bilaterally Resp normal respiratory effort and clear to auscultation bilaterally Effort and Inspection: able to speak in complete sentences Psych affect normal Nursing Assessment and Debridement Post-Debridement Measurements and Additional Note: Post-Debridement Measurements/Treatment WC - Nurse 1 - General Ulcer Assessment Start: 07/12/22 09:09 Freq: Status: Active Protocol: KISHA.[email or web address] Activity Type Activity Date Activity User E-sign Co-sign Detail Recorded Client Recorded Date Recorded By Document 07/12/22 09:09 HAI [id number] 07/12/22 09:12 HAI 07/12/22 09:09 WC - Today's Visit Information Type of service Follow-up 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/CANDY SUPERVISOR ) Arrival Mode Ambulatory Patient Identification Verified (Name & Yes ) Patient Requires Transmission-Based No Precautions Safety Precautions NA Height and Weight Body Mass Index (BMI) 29.8 BMI Classification Overweight Vital Signs Temperature (97.8 F-99.1 F) 97.2 F L Temperature Source Temporal Pulse Rate (60-100) 88 Pulse Location Monitor Blood Pressure (90/60-120/80) 160/96 H Blood Pressure Mean (mm Hg) 117 Source Monitor History Since Last Visit- (Skip if this is Patient's initial visit) Have you changed medications since your No last visit? Any new allergies or adverse reactions No Had a fall/change in ADL's that may No increase risk of falls Signs or symptoms of abuse and/or No neglect since last visit Have you been in the hospital since your No last visit? Has dressing in place as prescribed Yes Has compression in place as prescribed Yes Has offloadiing in place as prescribed N/A Experienced any changes in pain level or No management Left Footwear Regular Shoe Right Footwear Regular Shoe Pain Scale: 0-10 Numeric Is Patient Pain Free? Yes - Nurse 1 - General Ulcer Measurement Start: 07/12/22 09:09 Freq: Status: Active Protocol: Activity Type Activity Date Activity User E-sign Co-sign Detail Recorded Client Recorded Date Recorded By Document 07/12/22 09:09 AK [id number] 07/12/22 09:12 AK 07/12/22 09:09 Wound Center Nurse 1 #11 R Groin -Combined with other wound No -Current Size (cm) - Length 2.5 -Current Size (cm) - Width 0.3 -Current Size (cm) - Depth 0.3 -Total Square Cm 0.75 -Date of Last Picture (Recall this 07/12/22 field) -Photo Taken Yes -Epithelialization None Present -Tunneling No -Undermining/Tunneling No -Circular Undermining No -Exudate Amt Small -Exudate Type Serosanguineous -Wound Margin Distinct, Outline Attached -Granulation Amt Medium (34-66%) -Granulation Quality [place] -Slough/Fibrin Yes -Necrosis Amt Medium (34-66%) -Necrotic Tissue Type Adherent Slough -Structure Exposed N/A -Texture (Blanche-wound Skin Appearance) Assessed, Scarring -Moisture (Blanche-wound Skin Appearance) No Abnormality, Assessed -Color (Blanche-wound Skin Appearance) No Abnormality, Assessed -Temperature (Blanche-wound Skin No Abnormality Appearance) (Pt Warm) -Tenderness on Palpation (Blanche-wound No Skin Appearance) -Ulcer Cleansing Rinsed/ Irrigated with Saline -Foul Odor after Cleansing No -Anesthetic Used 4% Lidocaine Solution Lower Limb Edema Present No WC - Nurse 2 - General Ulcer CM Notes Start: 07/12/22 09:09 Freq: Status: Active Protocol: Activity Type Activity Date Activity User E-sign Co-sign Detail Recorded Client Recorded Date Recorded By Document 07/12/22 12:28 PL [id number] 07/12/22 12:30 PL 07/12/22 12:28 Wound Center Nurse 2 #11 R Groin -Time 09:20 -Correct Patient Yes -Correct Side, Site, Position Yes -Correct Procedure Yes -Procedure Performed Yes -Type of Procedure Debridement -Clinical Debridement Subcutaneous -Tissue Removed Dermis -Post Debridement (cm) - Length 2.5 -Post Debridement (cm) - Width 0.3 -Post Debridement (cm) - Depth 0.2 -Total Square (Post) (cm) 0.75 -Area of Debridement (cm) - Length 2.5 -Area of Debridement (cm) - Width 0.3 -Total Square (Area) (cm) 0.75 -Tunneling No -Undermining/Tunneling No -Circular Undermining No -Wound/Ulcer Outcome Not Healed -Ulcer Cleansing Rinsed/ Irrigated with Saline -Foul Odor after Cleansing No -Bioengineered Tissue No -Debridement - Subq, 1st 20sq cm Yes Pain Scale: 0-10 Numeric Is Patient Pain Free? Yes WC - Nurse 3 - General Ulcer D/C NN Start: 07/12/22 09:09 Freq: Status: Active Protocol: Activity Type Activity Date Activity User E-sign Co-sign Detail Recorded Client Recorded Date Recorded By Document 07/12/22 09:28 HAI [id number] 07/12/22 09:28 HAI 07/12/22 09:28 Wound Care Nurse 3 #11 R Groin -Ulcer Cleansing Rinsed/ Irrigated with Saline -Foul Odor after Cleansing No -Negative Pressure Wound Therapy N/A -Other Dressing nugauze in dakins -Primary Dressing Covered/Secured with Dry Gauze, Secured with Tape Pain Scale: 0-10 Numeric Is Patient Pain Free? Yes WC - Visit Discharge Discharge Condition Stable Ambulatory Status Ambulatory Transportation Private Auto Medication Reconcilliation completed & Yes provided to patient/care provider Clinical Summary of Care Provided Yes Charges/Coding Wound Center CF Procedures HBO Supervision: [id number] Hyperbaric Oxygen; supervision Assessment/Plan Assessment/Plan (1) Radiation injury: CODE(S): T66.XXXA - Radiation sickness, unspecified, initial encounter (2) History of melanoma: CODE(S): Z85.820 - Personal history of malignant melanoma of skin (3) Soft tissue radionecrosis: CODE(S): L59.8 - Other specified disorders of the skin and subcutaneous tissue related to radiation; Y84.2 - Radiological procedure and radiotherapy as the cause of abnormal reaction of the patient, or of later complication, without mention of misadventure at the time of the procedure PLAN: Plan The patient appears to be tolerating hyperbaric oxygen therapy well, which will be continued as per her medical plan. This note was generated with [employer] software. It may contain incorrect words, spelling, and punctuation that were not noted in checking the note before signing.
[2022-07-15 11:13] VITALS: BP 146/62; BP 146/72; PULSE 67; PULSE 84; RESP 16; RESP 17; TEMP 35.6
--- NOTE | 2022-07-15 13:20 | HBO.PN.PCM_ITS ---
History of Present Illness Date of Service: 07/15/22 Chief Complaint: Soft tissue radionecrosis of the right groin with open ul ceration History of Wound: This is a 67-year-old female with a long and complicated past medical history. The patient was diagnosed with melanoma of the right calf in the 1969's. The melanoma was metastatic to lymph nodes. The patient underwent excision of her melanoma with lymphadenectomy in the right groin. She also underwent lengthy radiation treatments at the [facility] in [place], [place]. Melanoma recurred, and the patient was subsequently treated with monoclonal antibodies in 1984. However, due to the presence of severe radiation injury, persisting open wounds in the right thigh, MRSA infection, and severe radiation injury to the right femoral artery, the patient subsequently required right above-knee amputation in 2002. 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 Treatment included local ulcer care and hyperbaric oxygen therapy. She underwent a total of nearly 90 treatments of hyperbaric oxygen therapy. It is known that she tolerated the therapies well, and derived significant benefit. 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 She has also undergone several more sessions of hyperbaric oxygen therapy. She also received a series of 10 EpiFix allografts in the course of previous treatment. Each of the patient's prior courses of treatment in our facility have been protracted, with difficulties encountered in achieving complete healing. Her most recent course of treatment ended with successful healing and discharge in February 2021. The patient presented at this time with a recurrence of her right groin ulceration, again thought to be secondary to soft tissue radiation injury. The ulceration recurred spontaneously approximately 2-3 weeks prior to her presentation. The patient indicates that her health history has not changed since she was last treated in our facility. She has been approved for hyperbaric oxygen therapy treatment for the ulcer in her right groin caused by radionecrosis. Subjective Subjective Today is the 37th treatment of hyperbaric oxygen therapy.? The patient is scheduled for 60 treatments total. Tolerance of hyperbaric oxygen therapy: Hyperbaric oxygen treatment was administered as per the facility's protocol.? Hyperbaric oxygen therapy was administered at 2.0 CHHAYA in 100% oxygen for 90 minutes without air breaks.? The patient tolerated hyperbaric oxygen well, without complications or complaints. Upon emergence of the hyperbaric chamber, the patient's vital signs remained stable.? She was discharged in good condition. Objective Data Objective Data Vital Signs: Vital Signs Temp Pulse Resp BP 96.1 F L 84 17 146/72 H 07/15/22 11:13 07/15/22 11:13 07/15/22 11:13 07/15/22 11:13 Weight: 88.952 kg Body Mass Index (BMI) 29.8 Exam Physical Exam Const alert, oriented x3 and no apparent distress Psych mental status grossly normal, thought process normal, cooperative, affect normal and speech normal Nursing Assessment and Debridement Post-Debridement Measurements and Additional Note: Post-Debridement Measurements/Treatment WC - Nurse 2 - General Ulcer CM Notes Start: 07/12/22 09:09 Freq: Status: Active Protocol: Activity Type Activity Date Activity User E-sign Co-sign Detail Recorded Client Recorded Date Recorded By Document 07/12/22 12:28 PL [id number] 07/12/22 12:30 PL 07/12/22 12:28 Wound Center Nurse 2 #11 R Groin -Time 09:20 -Correct Patient Yes -Correct Side, Site, Position Yes -Correct Procedure Yes -Procedure Performed Yes -Type of Procedure Debridement -Clinical Debridement Subcutaneous -Tissue Removed Dermis -Post Debridement (cm) - Length 2.5 -Post Debridement (cm) - Width 0.3 -Post Debridement (cm) - Depth 0.2 -Total Square (Post) (cm) 0.75 -Area of Debridement (cm) - Length 2.5 -Area of Debridement (cm) - Width 0.3 -Total Square (Area) (cm) 0.75 -Tunneling No -Undermining/Tunneling No -Circular Undermining No -Wound/Ulcer Outcome Not Healed -Ulcer Cleansing Rinsed/ Irrigated with Saline -Foul Odor after Cleansing No -Bioengineered Tissue No -Debridement - Subq, 1st 20sq cm Yes Pain Scale: 0-10 Numeric Is Patient Pain Free? Yes Assessment/Plan Assessment/Plan (1) Radiation injury: CODE(S): T66.XXXA - Radiation sickness, unspecified, initial encounter (2) History of melanoma: CODE(S): Z85.820 - Personal history of malignant melanoma of skin (3) Soft tissue radionecrosis: CODE(S): L59.8 - Other specified disorders of the skin and subcutaneous tissue related to radiation; Y84.2 - Radiological procedure and radiotherapy as the cause of abnormal reaction of the patient, or of later complication, without mention of misadventure at the time of the procedure PLAN: Plan The patient appears to be tolerating hyperbaric oxygen therapy well, which will be continued as per her medical plan. This note was generated with [employer] dictation software. It may contain incorrect words, spelling, and punctuation that were not noted in checking the note before signing.
--- NOTE | 2022-07-18 09:44 | HBO.PN.PCM_ITS ---
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 The patient was diagnosed with melanoma of the right calf in the 1969's. The melanoma was metastatic to lymph nodes. The patient underwent excision of her melanoma with lymphadenectomy in the right groin. She also underwent lengthy radiation treatments at the [facility] in [place], [place]. Melanoma recurred, and the patient was subsequently treated with monoclonal antibodies in 1984. However, due to the presence of severe radiation injury, persisting open wounds in the right thigh, MRSA infection, and severe radiation injury to the right femoral artery, the patient subsequently required right above-knee amputation in 2002. 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 Treatment included local ulcer care and hyperbaric oxygen therapy. She underwent a total of nearly 90 treatments of hyperbaric oxygen therapy. It is known that she tolerated the therapies well, and derived significant benefit. 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 She has also undergone several more sessions of hyperbaric oxygen therapy. She also received a series of 10 EpiFix allografts in the course of previous treatment. Each of the patient's prior courses of treatment in our facility have been protracted, with difficulties encountered in achieving complete healing. Her most recent course of treatment ended with successful healing and discharge in February 2021. The patient presented at this time with a recurrence of her right groin ulceration, again thought to be secondary to soft tissue radiation injury. The ulceration recurred spontaneously approximately 2-3 weeks prior to her presentation. The patient indicates that her health history has not changed since she was last treated in our facility. She has been approved for hyperbaric oxygen therapy treatment for the ulcer in her right groin caused by radionecrosis. Subjective Subjective Today is the 38th treatment of hyperbaric oxygen therapy.? The patient is scheduled for 60 treatments total. Tolerance of hyperbaric oxygen therapy: Hyperbaric oxygen treatment was administered as per the facility's protocol.? Hyperbaric oxygen therapy was administered at 2.0 CHHAYA in 100% oxygen for 90 minutes without air breaks.? The patient tolerated hyperbaric oxygen well, without complications or complaints. Upon emergence of the hyperbaric chamber, the patient's vital signs remained stable.? She was discharged in good condition. Objective Data Objective Data Vital Signs: Vital Signs Temp Pulse Resp BP 96.1 F L 84 17 146/72 H 07/15/22 11:13 07/15/22 11:13 07/15/22 11:13 07/15/22 11:13 Weight: 196 lb 1.696 oz Body Mass Index (BMI) 29.8 Exam Physical Exam Const alert, oriented x3 and no apparent distress General Appearance: cooperative HEENT normocephalic HEENT Narrative: Able to visualize her ear tubes bilaterally Resp normal respiratory effort and clear to auscultation bilaterally Effort and Inspection: able to speak in complete sentences Psych affect normal Assessment/Plan Assessment/Plan (1) Radiation injury: CODE(S): T66.XXXA - Radiation sickness, unspecified, initial encounter (2) History of melanoma: CODE(S): Z85.820 - Personal history of malignant melanoma of skin (3) Soft tissue radionecrosis: CODE(S): L59.8 - Other specified disorders of the skin and subcutaneous tissue related to radiation; Y84.2 - Radiological procedure and radiotherapy as the cause of abnormal reaction of the patient, or of later complication, without mention of misadventure at the time of the procedure PLAN: Plan The patient appears to be tolerating hyperbaric oxygen therapy well, which will be continued as per her medical plan. This note was generated with [employer] dictation software. It may contain incorrect words, spelling, and punctuation that were not noted in checking the note before signing.
[2022-07-18 11:31] VITALS: BP 121/59; BP 135/72; PULSE 75; PULSE 88; RESP 16; RESP 17; TEMP 35.8
--- NOTE | 2022-07-19 11:12 | PCM.HBO.PN ---
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 The patient was diagnosed with melanoma of the right calf in the 1969's. The melanoma was metastatic to lymph nodes. The patient underwent excision of her melanoma with lymphadenectomy in the right groin. She also underwent lengthy radiation treatments at the [facility] in [place], [place]. Melanoma recurred, and the patient was subsequently treated with monoclonal antibodies in 1984. However, due to the presence of severe radiation injury, persisting open wounds in the right thigh, MRSA infection, and severe radiation injury to the right femoral artery, the patient subsequently required right above-knee amputation in 2002. 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 Treatment included local ulcer care and hyperbaric oxygen therapy. She underwent a total of nearly 90 treatments of hyperbaric oxygen therapy. It is known that she tolerated the therapies well, and derived significant benefit. 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 She has also undergone several more sessions of hyperbaric oxygen therapy. She also received a series of 10 EpiFix allografts in the course of previous treatment. Each of the patient's prior courses of treatment in our facility have been protracted, with difficulties encountered in achieving complete healing. Her most recent course of treatment ended with successful healing and discharge in February 2021. The patient presented at this time with a recurrence of her right groin ulceration, again thought to be secondary to soft tissue radiation injury. The ulceration recurred spontaneously approximately 2-3 weeks prior to her presentation. The patient indicates that her health history has not changed since she was last treated in our facility. She has been approved for hyperbaric oxygen therapy treatment for the ulcer in her right groin caused by radionecrosis. Subjective Subjective Today is the 39th treatment of hyperbaric oxygen therapy.? The patient is scheduled for 60 treatments total. Tolerance of hyperbaric oxygen therapy: Hyperbaric oxygen treatment was administered as per the facility's protocol.? Hyperbaric oxygen therapy was administered at 2.0 CHHAYA in 100% oxygen for 90 minutes without air breaks.? The patient tolerated hyperbaric oxygen well, without complications or complaints. Upon emergence of the hyperbaric chamber, the patient's vital signs remained stable.? She was discharged in good condition. Objective Data Objective Data Vital Signs: Vital Signs Temp Pulse Resp BP 96.5 F L 88 16 135/72 H 07/18/22 11:31 07/18/22 11:31 07/18/22 11:31 07/18/22 11:31 Weight: 196 lb 1.696 oz Body Mass Index (BMI) 29.8 Exam Physical Exam Const alert, oriented x3 and no apparent distress General Appearance: cooperative HEENT normocephalic HEENT Narrative: Able to visualize her ear tubes bilaterally Resp normal respiratory effort and clear to auscultation bilaterally Effort and Inspection: able to speak in complete sentences Psych affect normal Assessment/Plan Assessment/Plan (1) Radiation injury: CODE(S): T66.XXXA - Radiation sickness, unspecified, initial encounter (2) History of melanoma: CODE(S): Z85.820 - Personal history of malignant melanoma of skin (3) Soft tissue radionecrosis: CODE(S): L59.8 - Other specified disorders of the skin and subcutaneous tissue related to radiation; Y84.2 - Radiological procedure and radiotherapy as the cause of abnormal reaction of the patient, or of later complication, without mention of misadventure at the time of the procedure PLAN: Plan The patient appears to be tolerating hyperbaric oxygen therapy well, which will be continued as per her medical plan. This note was generated with [employer] dictation software. It may contain incorrect words, spelling, and punctuation that were not noted in checking the note before signing.
[2022-07-19 12:33] VITALS: BP 116/53; BP 152/84; PULSE 72; PULSE 94; RESP 16; TEMP 36.1
[2022-07-19 13:19] VITALS: BP 116/53; PULSE 72; RESP 16; TEMP 36.1; BMI 29.8
--- NOTE | 2022-07-19 16:34 | PCM.WC.HP ---
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 The patient was diagnosed with melanoma of the right calf in the 1969's. The melanoma was metastatic to lymph nodes. The patient underwent excision of her melanoma with lymphadenectomy in the right groin. She also underwent lengthy radiation treatments at the [facility] in [place], [place]. Melanoma recurred, and the patient was subsequently treated with monoclonal antibodies in 1984. However, due to the presence of severe radiation injury, persisting open wounds in the right thigh, MRSA infection, and severe radiation injury to the right femoral artery, the patient subsequently required right above-knee amputation in 2002. 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 Treatment included local ulcer care and hyperbaric oxygen therapy. She underwent a total of nearly 90 treatments of hyperbaric oxygen therapy. It is known that she tolerated the therapies well, and derived significant benefit. 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 She has also undergone several more sessions of hyperbaric oxygen therapy. She also received a series of 10 EpiFix allografts in the course of previous treatment. Each of the patient's prior courses of treatment in our facility have been protracted, with difficulties encountered in achieving complete healing. Her most recent course of treatment ended with successful healing and discharge in February 2021. The patient presented at this time with a recurrence of her right groin ulceration, again thought to be secondary to soft tissue radiation injury. The ulceration recurred spontaneously approximately 2-3 weeks prior to her presentation. The patient indicates that her health history has not changed since she was last treated in our facility. She has been approved for hyperbaric oxygen therapy treatment for the ulcer in her right groin caused by radionecrosis. [facility] Medical History Bilateral cataracts Cancer Hemorrhoids Knee pain Radiation injury Home Medications famotidine 20 mg tablet 20 mg PO 06/20/17 [History Last Taken Unknown] pravastatin 20 mg tablet 20 mg PO DAILY 06/20/17 [History Last Taken Unknown] famotidine 40 mg tablet PO 90 days ##90 12/26/17 [History Last Taken Unknown] pravastatin 20 mg tablet PO 90 days ##90 12/26/17 [History Last Taken Unknown] Allergy/AdvReac Type Severity Reaction Status Date / Time No Known Allergies Allergy Verified 02/15/22 09:08 Family History Other Heart disease Hypertension Surgical History Hx of AKA (above knee amputation) Social History Smoking Status: Former smoker alcohol intake: current alcohol intake frequency: holidays/special occasions only Vital Signs Vital Signs Vital Signs: 07/19/22 12:33 07/19/22 13:19 Temperature 97.0 F L Temperature [Post Treatment] 97.0 F L Temperature [Pre Treatment] 97.0 F L Temperature Source Temporal Pulse Rate 72 Pulse Rate [Post Treatment] 72 Pulse Rate [Pre Treatment] 94 Respiratory Rate 16 Respiratory Rate [Post Treatment] 16 Respiratory Rate [Pre Treatment] 16 Blood Pressure 116/53 L Blood Pressure [Post Treatment] 116/53 L Blood Pressure [Pre Treatment] 152/84 H Blood Pressure Mean 74 Blood Pressure Source Monitor Blood Pressure Position Sitting Blood Pressure Location Right Arm Weight Weight: 196 lb 1.696 oz Body Mass Index (BMI) 29.8 Physical Exam Const alert, oriented x3, no apparent distress, no limitations and well nourished General Appearance: cooperative, comfortable, well kempt and well developed Orientation / Consciousness: awake, oriented to person, oriented to place and oriented to time Exam Limitations: no limitations HEENT normocephalic, head/scalp atraumatic, hearing grossly normal bilaterally and external ears normal HEENT Narrative: Able to visualize her ear tubes bilaterally Head and Scalp: normal to inspection, normocephalic and atraumatic Face and Sinus: normal facial exam Eyes PERRL and EOMs intact bilaterally General Eye: normal appearance of both eyes Pupil: PERRL Resp normal respiratory effort, normal air movement, no use of accessory muscles and clear to auscultation bilaterally Effort and Inspection: able to speak in complete sentences Skin Wound Narrative: A well-healed right above-knee amputation stump is noted. An ulceration is noted in the right groin. There is a moderate amount of bioburden. Dimensions are documented elsewhere. There is no sign of infection or cellulitis. There is little change from recent prior weeks. Hair: normal Neuro oriented x3, CN's II-XII intact bilaterally, moves all extremities and no focal motor deficits Sensorium / Orientation: awake, alert, oriented to person, oriented to place and oriented to time Psych affect normal Debridement Note Debridement Note Wound debrided: Right groin Laterality: Right Type of Debridement: Excisional debridement Anesthesia Used: 5% Lidocaine Gel Depth: Down to and including healthy tissue and in the subcutaneous layer Percentage of wound debrided: 100 Instrument Used: 3mm curette Tissue Removed: Bioburden and fibrous, nonviable tissue Severity: Fat Layer Exposed Amount of bleeding with debridement: Mild Bleeding Controlled with: Compression and gauze Patient tolerated procedure: Patient tolerated procedure well Post-Debridement Measurements and Additional Note: Post-Debridement Measurements/Treatment WC - Nurse 1 - General Ulcer Assessment Start: 07/12/22 09:09 Freq: Status: Active Protocol: MICHAEL Activity Type Activity Date Activity User E-sign Co-sign Detail Recorded Client Recorded Date Recorded By Document 07/12/22 09:09 AK [id number] 07/12/22 09:12 AK Document 07/19/22 13:19 ML [id number] 07/19/22 13:25 ML 07/12/22 07/19/22 09:09 13:19 - Today's Visit Information Type of service Follow-up Visit Follow-up 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/UTILITY INSPECTOR (Physician/UTILITY INSPECTOR ) ) Arrival Mode Ambulatory Ambulatory Transfer Assistance None Patient Identification Verified (Name & Yes Yes ) Patient Requires Transmission-Based No No Precautions Safety Precautions NA NA Height and Weight Body Mass Index (BMI) 29.8 29.8 BMI Classification Overweight Overweight Vital Signs Temperature (97.8 F-99.1 F) 97.2 F L 97.0 F L Temperature Source Temporal Temporal Pulse Rate (60-100) 88 72 Pulse Location Monitor Monitor Respiratory Rate (12-18) 16 Respiratory rate source Observation Blood Pressure (90/60-120/80) 160/96 H 116/53 L Blood Pressure Mean 117 74 Source Monitor Monitor Position Sitting Blood Pressure Location Right Arm History Since Last Visit- (Skip if this is Patient's initial visit) Have you changed medications since your No No last visit? Any new allergies or adverse reactions No No Had a fall/change in ADL's that may No No increase risk of falls Signs or symptoms of abuse and/or No No neglect since last visit Have you been in the hospital since your No No last visit? Has dressing in place as prescribed Yes Yes Has compression in place as prescribed Yes N/A Has offloadiing in place as prescribed N/A N/A Experienced any changes in pain level or No No management Left Footwear Regular Shoe Regular Shoe Right Footwear Regular Shoe Regular Shoe Pain Scale: 0-10 Numeric Is Patient Pain Free? Yes Yes WC - Nurse 1 - General Ulcer Measurement Start: 07/12/22 09:09 Freq: Status: Active Protocol: Activity Type Activity Date Activity User E-sign Co-sign Detail Recorded Client Recorded Date Recorded By Document 07/12/22 09:09 AK [id number] 07/12/22 09:12 AK Document 07/19/22 13:19 ML [id number] 07/19/22 13:25 ML 07/12/22 07/19/22 09:09 13:19 Wound Center Nurse 1 #11 R Groin -Combined with other wound No -Current Size (cm) - Length 2.5 2.3 -Current Size (cm) - Width 0.3 0.5 -Current Size (cm) - Depth 0.3 0.4 -Total Square Cm 0.75 1.15 -Date of Last Picture (Recall this 07/12/22 field) -Photo Taken Yes -Epithelialization None Present -Tunneling No -Undermining/Tunneling No -Circular Undermining No -Exudate Amt Small Small -Exudate Type Serosanguineous Serosanguineous -Wound Margin Distinct, Distinct, Outline Outline Attached Attached -Granulation Amt Medium (34-66%) -Granulation Quality [place] -Slough/Fibrin Yes Yes -Necrosis Amt Medium (34-66%) Small (1-33%) -Necrotic Tissue Type Adherent Slough Adherent Slough -Structure Exposed N/A -Texture (Blanche-wound Skin Appearance) Assessed, Assessed Scarring -Moisture (Blanche-wound Skin Appearance) No Abnormality, Assessed Assessed -Color (Blanche-wound Skin Appearance) No Abnormality, Assessed Assessed -Temperature (Blanche-wound Skin No Abnormality No Abnormality Appearance) (Pt Warm) (Pt Warm) -Tenderness on Palpation (Blanche-wound No No Skin Appearance) -Ulcer Cleansing Rinsed/ Rinsed/ Irrigated with Irrigated with Saline Saline -Foul Odor after Cleansing No No -Anesthetic Used 4% Lidocaine 4% Lidocaine Solution Solution Lower Limb Edema Present No WC - Nurse 2 - General Ulcer CM Notes Start: 07/12/22 09:09 Freq: Status: Active Protocol: Activity Type Activity Date Activity User E-sign Co-sign Detail Recorded Client Recorded Date Recorded By Document 07/12/22 12:28 PL [id number] 07/12/22 12:30 PL Document 07/19/22 15:04 PL [id number] 07/19/22 15:05 PL 07/12/22 07/19/22 12:28 15:04 Wound Center Nurse 2 #11 R Groin -Time 09:20 13:32 -Correct Patient Yes Yes -Correct Side, Site, Position Yes Yes -Correct Procedure Yes Yes -Procedure Performed Yes Yes -Type of Procedure Debridement Debridement -Clinical Debridement Subcutaneous Subcutaneous -Tissue Removed Dermis Subcutaneous -Post Debridement (cm) - Length 2.5 2.3 -Post Debridement (cm) - Width 0.3 0.5 -Post Debridement (cm) - Depth 0.2 0.3 -Total Square (Post) (cm) 0.75 1.15 -Area of Debridement (cm) - Length 2.5 2.3 -Area of Debridement (cm) - Width 0.3 0.5 -Total Square (Area) (cm) 0.75 1.15 -Tunneling No No -Undermining/Tunneling No No -Circular Undermining No No -Wound/Ulcer Outcome Not Healed Not Healed -Ulcer Cleansing Rinsed/ Rinsed/ Irrigated with Irrigated with Saline Saline -Foul Odor after Cleansing No No -Bioengineered Tissue No No -Bleeding Controlled with Pressure -Treatment Response Procedure Tolerated Well -Debridement - Subq, 1st 20sq cm Yes Yes Pain Scale: 0-10 Numeric Is Patient Pain Free? Yes Yes WC - Nurse 3 - General Ulcer D/C NN Start: 07/12/22 09:09 Freq: Status: Active Protocol: Activity Type Activity Date Activity User E-sign Co-sign Detail Recorded Client Recorded Date Recorded By Document 07/12/22 09:28 AK [id number] 07/12/22 09:28 AK 07/12/22 09:28 Wound Care Nurse 3 #11 R Groin -Ulcer Cleansing Rinsed/ Irrigated with Saline -Foul Odor after Cleansing No -Negative Pressure Wound Therapy N/A -Other Dressing nugauze in dakins -Primary Dressing Covered/Secured with Dry Gauze, Secured with Tape Pain Scale: 0-10 Numeric Is Patient Pain Free? Yes WC - Visit Discharge Discharge Condition Stable Ambulatory Status Ambulatory Transportation Private Auto Medication Reconcilliation completed & Yes provided to patient/care provider Clinical Summary of Care Provided Yes Assessment/Plan Assessment/Plan (1) Radiation injury: CODE(S): T66.XXXA - Radiation sickness, unspecified, initial encounter (2) History of melanoma: CODE(S): Z85.820 - Personal history of malignant melanoma of skin (3) Soft tissue radionecrosis: CODE(S): L59.8 - Other specified disorders of the skin and subcutaneous tissue related to radiation; Y84.2 - Radiological procedure and radiotherapy as the cause of abnormal reaction of the patient, or of later complication, without mention of misadventure at the time of the procedure PLAN: Plan This is a 67-year-old female with 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 Current management includes the use of Dakin's-moistened 1/4 inch Nu Gauze packing to the ulceration on a daily basis. There is no sign of infection or cellulitis. The patient is currently undergoing hyperbaric oxygen therapy sessions on a weekday basis, and appears to be tolerating hyperbaric oxygen therapy well, which will be continued as per her medical plan. This note was generated with [email or web address] software. It may contain incorrect words, spelling, and punctuation that were not noted in checking the note before signing. Total time: 26 minutes
--- NOTE | 2022-07-20 11:20 | PCM.HBO.PN ---
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 The patient was diagnosed with melanoma of the right calf in the 1969's. The melanoma was metastatic to lymph nodes. The patient underwent excision of her melanoma with lymphadenectomy in the right groin. She also underwent lengthy radiation treatments at the [facility] in [place], [place]. Melanoma recurred, and the patient was subsequently treated with monoclonal antibodies in 1984. However, due to the presence of severe radiation injury, persisting open wounds in the right thigh, MRSA infection, and severe radiation injury to the right femoral artery, the patient subsequently required right above-knee amputation in 2002. 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 Treatment included local ulcer care and hyperbaric oxygen therapy. She underwent a total of nearly 90 treatments of hyperbaric oxygen therapy. It is known that she tolerated the therapies well, and derived significant benefit. 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 She has also undergone several more sessions of hyperbaric oxygen therapy. She also received a series of 10 EpiFix allografts in the course of previous treatment. Each of the patient's prior courses of treatment in our facility have been protracted, with difficulties encountered in achieving complete healing. Her most recent course of treatment ended with successful healing and discharge in February 2021. The patient presented at this time with a recurrence of her right groin ulceration, again thought to be secondary to soft tissue radiation injury. The ulceration recurred spontaneously approximately 2-3 weeks prior to her presentation. The patient indicates that her health history has not changed since she was last treated in our facility. She has been approved for hyperbaric oxygen therapy treatment for the ulcer in her right groin caused by radionecrosis. Progress of Wound: Patient completed 40 of 60 HBO treatments. Did have some ear complaints today with some dizziness before she arrived. Checked her TMs and the right one was kind of bulging the tube is in place had a little redness at the base we will start her on some antibiotics but I okayed her to go into the HBO machine. Subjective Subjective Patient was not phased by the pressure going down and did very well without any complaints she will start her antibiotic today. Objective Data Objective Data Vital signs of been stable and patient was reassessed on her way out and she did well and she feels fine. Vital Signs: Vital Signs Temp Pulse Resp BP 97.0 F L 72 16 116/53 L 07/19/22 13:19 07/19/22 13:19 07/19/22 13:19 07/19/22 13:19 Weight: 196 lb 1.696 oz Body Mass Index (BMI) 29.8 Exam Physical Exam Const alert and oriented x3 General Appearance: cooperative Resp normal respiratory effort Effort and Inspection: able to speak in complete sentences Cardio regular rate and regular rhythm Extremity Extremity Narrative: Here for soft tissue radiation necrosis Nursing Assessment and Debridement Post-Debridement Measurements and Additional Note: Post-Debridement Measurements/Treatment WC - Nurse 1 - General Ulcer Assessment Start: 07/12/22 09:09 Freq: Status: Active Protocol: WC.LOWEXT Activity Type Activity Date Activity User E-sign Co-sign Detail Recorded Client Recorded Date Recorded By Document 07/19/22 13:19 ML [id number] 07/19/22 13:25 ML 07/19/22 13:19 WC - Today's Visit Information Type of service Follow-up 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/SUPERVISOR ORNAMENTAL IRONWORKING ) Arrival Mode Ambulatory Transfer Assistance None Patient Identification Verified (Name & Yes ) Patient Requires Transmission-Based No Precautions Safety Precautions NA Height and Weight Body Mass Index (BMI) 29.8 BMI Classification Overweight Vital Signs Temperature (97.8 F-99.1 F) 97.0 F L Temperature Source Temporal Pulse Rate (60-100) 72 Pulse Location Monitor Respiratory Rate (12-18) 16 Respiratory rate source Observation Blood Pressure (90/60-120/80) 116/53 L Blood Pressure Mean (mm Hg) 74 Source Monitor Position Sitting Blood Pressure Location Right Arm History Since Last Visit- (Skip if this is Patient's initial visit) Have you changed medications since your No last visit? Any new allergies or adverse reactions No Had a fall/change in ADL's that may No increase risk of falls Signs or symptoms of abuse and/or No neglect since last visit Have you been in the hospital since your No last visit? Has dressing in place as prescribed Yes Has compression in place as prescribed N/A Has offloadiing in place as prescribed N/A Experienced any changes in pain level or No management Left Footwear Regular Shoe Right Footwear Regular Shoe Pain Scale: 0-10 Numeric Is Patient Pain Free? Yes - Nurse 1 - General Ulcer Measurement Start: 07/12/22 09:09 Freq: Status: Active Protocol: Activity Type Activity Date Activity User E-sign Co-sign Detail Recorded Client Recorded Date Recorded By Document 07/19/22 13:19 ML [id number] 07/19/22 13:25 ML 07/19/22 13:19 Wound Center Nurse 1 #11 R Groin -Current Size (cm) - Length 2.3 -Current Size (cm) - Width 0.5 -Current Size (cm) - Depth 0.4 -Total Square Cm 1.15 -Exudate Amt Small -Exudate Type Serosanguineous -Wound Margin Distinct, Outline Attached -Slough/Fibrin Yes -Necrosis Amt Small (1-33%) -Necrotic Tissue Type Adherent Slough -Texture (Blanche-wound Skin Appearance) Assessed -Moisture (Blanche-wound Skin Appearance) Assessed -Color (Blanche-wound Skin Appearance) Assessed -Temperature (Blanche-wound Skin No Abnormality Appearance) (Pt Warm) -Tenderness on Palpation (Blanche-wound No Skin Appearance) -Ulcer Cleansing Rinsed/ Irrigated with Saline -Foul Odor after Cleansing No -Anesthetic Used 4% Lidocaine Solution KISHA - Nurse 2 - General Ulcer CM Notes Start: 07/12/22 09:09 Freq: Status: Active Protocol: Activity Type Activity Date Activity User E-sign Co-sign Detail Recorded Client Recorded Date Recorded By Document 07/19/22 15:04 PL [id number] 07/19/22 15:05 PL 07/19/22 15:04 Wound Center Nurse 2 -Time 13:32 -Correct Patient Yes -Correct Side, Site, Position Yes -Correct Procedure Yes -Procedure Performed Yes -Type of Procedure Debridement -Clinical Debridement Subcutaneous -Tissue Removed Subcutaneous -Post Debridement (cm) - Length 2.3 -Post Debridement (cm) - Width 0.5 -Post Debridement (cm) - Depth 0.3 -Total Square (Post) (cm) 1.15 -Area of Debridement (cm) - Length 2.3 -Area of Debridement (cm) - Width 0.5 -Total Square (Area) (cm) 1.15 -Tunneling No -Undermining/Tunneling No -Circular Undermining No -Wound/Ulcer Outcome Not Healed -Ulcer Cleansing Rinsed/ Irrigated with Saline -Foul Odor after Cleansing No -Bioengineered Tissue No -Bleeding Controlled with Pressure -Treatment Response Procedure Tolerated Well -Debridement - Subq, 1st 20sq cm Yes Pain Scale: 0-10 Numeric Is Patient Pain Free? Yes Assessment/Plan Assessment/Plan (1) Radiation injury: CODE(S): T66.XXXA - Radiation sickness, unspecified, initial encounter (2) History of melanoma: CODE(S): Z85.820 - Personal history of malignant melanoma of skin (3) Soft tissue radionecrosis: CODE(S): L59.8 - Other specified disorders of the skin and subcutaneous tissue related to radiation; Y84.2 - Radiological procedure and radiotherapy as the cause of abnormal reaction of the patient, or of later complication, without mention of misadventure at the time of the procedure PLAN: Plan The patient appears to be tolerating hyperbaric oxygen therapy well, which will be continued as per her medical plan. Right ear did appear to be slightly red at the bases we will start her on Augmentin 875 mg/125 2 times a day for 10 days. This note was generated with [employer] dictation software. It may contain incorrect words, spelling, and punctuation that were not noted in checking the note before signing.
[2022-07-20 11:48] VITALS: BP 123/65; BP 148/85; PULSE 73; PULSE 92; RESP 15; RESP 17; TEMP 36.6
[2022-07-21 10:51] VITALS: BP 128/66; BP 133/64; PULSE 71; PULSE 82; RESP 16; TEMP 36.2; TEMP 36.8
--- NOTE | 2022-07-21 11:02 | HBO.PN.PCM_ITS ---
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 The patient was diagnosed with melanoma of the right calf in the 1969's. The melanoma was metastatic to lymph nodes. The patient underwent excision of her melanoma with lymphadenectomy in the right groin. She also underwent lengthy radiation treatments at the [facility] in [place], [place]. Melanoma recurred, and the patient was subsequently treated with monoclonal antibodies in 1984. However, due to the presence of severe radiation injury, persisting open wounds in the right thigh, MRSA infection, and severe radiation injury to the right femoral artery, the patient subsequently required right above-knee amputation in 2002. 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 Treatment included local ulcer care and hyperbaric oxygen therapy. She underwent a total of nearly 90 treatments of hyperbaric oxygen therapy. It is known that she tolerated the therapies well, and derived significant benefit. 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 She has also undergone several more sessions of hyperbaric oxygen therapy. She also received a series of 10 EpiFix allografts in the course of previous treatment. Each of the patient's prior courses of treatment in our facility have been protracted, with difficulties encountered in achieving complete healing. Her most recent course of treatment ended with successful healing and discharge in February 2021. The patient presented at this time with a recurrence of her right groin ulceration, again thought to be secondary to soft tissue radiation injury. The ulceration recurred spontaneously approximately 2-3 weeks prior to her presentation. The patient indicates that her health history has not changed since she was last treated in our facility. She has been approved for hyperbaric oxygen therapy treatment for the ulcer in her right groin caused by radionecrosis. Progress of Wound: Today is the 41st treatment of hyperbaric oxygen therapy.? The patient is scheduled for 60 treatments total. Tolerance of hyperbaric oxygen therapy: Hyperbaric oxygen treatment was administered as per the facility's protocol.? Hyperbaric oxygen therapy was administered at 2.0 CHHAYA in 100% oxygen for 90 minutes without air breaks.? The patient tolerated hyperbaric oxygen well, without complications or complaints. Upon emergence of the hyperbaric chamber, the patient's vital signs remained stable.? She was discharged in good condition. Objective Data Objective Data Vital Signs: Vital Signs Temp Pulse Resp BP 98.2 F 82 16 128/66 H 07/21/22 10:51 07/21/22 10:51 07/21/22 10:51 07/21/22 10:51 Weight: 196 lb 1.696 oz Body Mass Index (BMI) 29.8 Exam Physical Exam Const alert, oriented x3 and no apparent distress General Appearance: cooperative HEENT normocephalic HEENT Narrative: Able to visualize her ear tubes bilaterally Resp normal respiratory effort and clear to auscultation bilaterally Effort and Inspection: able to speak in complete sentences Psych affect normal Nursing Assessment and Debridement Post-Debridement Measurements and Additional Note: Post-Debridement Measurements/Treatment WC - Nurse 1 - General Ulcer Assessment Start: 07/12/22 09:09 Freq: Status: Active Protocol: MICHAEL Activity Type Activity Date Activity User E-sign Co-sign Detail Recorded Client Recorded Date Recorded By Document 07/19/22 13:19 ML [id number] 07/19/22 13:25 ML 07/19/22 13:19 WC - Today's Visit Information Type of service Follow-up 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/CAFE ASSOCIATE ) Arrival Mode Ambulatory Transfer Assistance None Patient Identification Verified (Name & Yes ) Patient Requires Transmission-Based No Precautions Safety Precautions NA Height and Weight Body Mass Index (BMI) 29.8 BMI Classification Overweight Vital Signs Temperature (97.8 F-99.1 F) 97.0 F L Temperature Source Temporal Pulse Rate (60-100) 72 Pulse Location Monitor Respiratory Rate (12-18) 16 Respiratory rate source Observation Blood Pressure (90/60-120/80) 116/53 L Blood Pressure Mean (mm Hg) 74 Source Monitor Position Sitting Blood Pressure Location Right Arm History Since Last Visit- (Skip if this is Patient's initial visit) Have you changed medications since your No last visit? Any new allergies or adverse reactions No Had a fall/change in ADL's that may No increase risk of falls Signs or symptoms of abuse and/or No neglect since last visit Have you been in the hospital since your No last visit? Has dressing in place as prescribed Yes Has compression in place as prescribed N/A Has offloadiing in place as prescribed N/A Experienced any changes in pain level or No management Left Footwear Regular Shoe Right Footwear Regular Shoe Pain Scale: 0-10 Numeric Is Patient Pain Free? Yes - Nurse 1 - General Ulcer Measurement Start: 07/12/22 09:09 Freq: Status: Active Protocol: Activity Type Activity Date Activity User E-sign Co-sign Detail Recorded Client Recorded Date Recorded By Document 07/19/22 13:19 ML [id number] 07/19/22 13:25 ML 07/19/22 13:19 Wound Center Nurse 1 #11 R Groin -Current Size (cm) - Length 2.3 -Current Size (cm) - Width 0.5 -Current Size (cm) - Depth 0.4 -Total Square Cm 1.15 -Exudate Amt Small -Exudate Type Serosanguineous -Wound Margin Distinct, Outline Attached -Slough/Fibrin Yes -Necrosis Amt Small (1-33%) -Necrotic Tissue Type Adherent Slough -Texture (Blanche-wound Skin Appearance) Assessed -Moisture (Blanche-wound Skin Appearance) Assessed -Color (Blanche-wound Skin Appearance) Assessed -Temperature (Blanche-wound Skin No Abnormality Appearance) (Pt Warm) -Tenderness on Palpation (Blanche-wound No Skin Appearance) -Ulcer Cleansing Rinsed/ Irrigated with Saline -Foul Odor after Cleansing No -Anesthetic Used 4% Lidocaine Solution KISHA - Nurse 2 - General Ulcer CM Notes Start: 07/12/22 09:09 Freq: Status: Active Protocol: Activity Type Activity Date Activity User E-sign Co-sign Detail Recorded Client Recorded Date Recorded By Document 07/19/22 15:04 PL [id number] 07/19/22 15:05 PL 07/19/22 15:04 Wound Center Nurse 2 -Time 13:32 -Correct Patient Yes -Correct Side, Site, Position Yes -Correct Procedure Yes -Procedure Performed Yes -Type of Procedure Debridement -Clinical Debridement Subcutaneous -Tissue Removed Subcutaneous -Post Debridement (cm) - Length 2.3 -Post Debridement (cm) - Width 0.5 -Post Debridement (cm) - Depth 0.3 -Total Square (Post) (cm) 1.15 -Area of Debridement (cm) - Length 2.3 -Area of Debridement (cm) - Width 0.5 -Total Square (Area) (cm) 1.15 -Tunneling No -Undermining/Tunneling No -Circular Undermining No -Wound/Ulcer Outcome Not Healed -Ulcer Cleansing Rinsed/ Irrigated with Saline -Foul Odor after Cleansing No -Bioengineered Tissue No -Bleeding Controlled with Pressure -Treatment Response Procedure Tolerated Well -Debridement - Subq, 1st 20sq cm Yes Pain Scale: 0-10 Numeric Is Patient Pain Free? Yes Charges/Coding Wound Center CF Procedures HBO Supervision: [id number] Hyperbaric Oxygen; supervision Assessment/Plan Assessment/Plan (1) Radiation injury: CODE(S): T66.XXXA - Radiation sickness, unspecified, initial encounter (2) History of melanoma: CODE(S): Z85.820 - Personal history of malignant melanoma of skin (3) Soft tissue radionecrosis: CODE(S): L59.8 - Other specified disorders of the skin and subcutaneous tissue related to radiation; Y84.2 - Radiological procedure and radiotherapy as the cause of abnormal reaction of the patient, or of later complication, without mention of misadventure at the time of the procedure PLAN: Plan The patient appears to be tolerating hyperbaric oxygen therapy well, which will be continued as per her medical plan. This note was generated with [employer] dictation software. It may contain incorrect words, spelling, and punctuation that were not noted in checking the note before signing.
[2022-07-22 11:12] VITALS: BP 139/70; BP 154/80; PULSE 75; PULSE 85; RESP 17; TEMP 36.2; TEMP 36.4
--- NOTE | 2022-07-22 13:55 | PCM.HBO.PN ---
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 The patient was diagnosed with melanoma of the right calf in the 1969's. The melanoma was metastatic to lymph nodes. The patient underwent excision of her melanoma with lymphadenectomy in the right groin. She also underwent lengthy radiation treatments at the [facility] in [place], [place]. Melanoma recurred, and the patient was subsequently treated with monoclonal antibodies in 1984. However, due to the presence of severe radiation injury, persisting open wounds in the right thigh, MRSA infection, and severe radiation injury to the right femoral artery, the patient subsequently required right above-knee amputation in 2002. 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 Treatment included local ulcer care and hyperbaric oxygen therapy. She underwent a total of nearly 90 treatments of hyperbaric oxygen therapy. It is known that she tolerated the therapies well, and derived significant benefit. 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 She has also undergone several more sessions of hyperbaric oxygen therapy. She also received a series of 10 EpiFix allografts in the course of previous treatment. Each of the patient's prior courses of treatment in our facility have been protracted, with difficulties encountered in achieving complete healing. Her most recent course of treatment ended with successful healing and discharge in February 2021. The patient presented at this time with a recurrence of her right groin ulceration, again thought to be secondary to soft tissue radiation injury. The ulceration recurred spontaneously approximately 2-3 weeks prior to her presentation. The patient indicates that her health history has not changed since she was last treated in our facility. She has been approved for hyperbaric oxygen therapy treatment for the ulcer in her right groin caused by radionecrosis. Progress of Wound: Today is the 42nd treatment of hyperbaric oxygen therapy.? The patient is scheduled for 60 treatments total. Tolerance of hyperbaric oxygen therapy: Hyperbaric oxygen treatment was administered as per the facility's protocol.? Hyperbaric oxygen therapy was administered at 2.0 CHHAYA in 100% oxygen for 90 minutes without air breaks.? The patient tolerated hyperbaric oxygen well, without complications or complaints. Upon emergence of the hyperbaric chamber, the patient's vital signs remained stable.? She was discharged in good condition. Objective Data Objective Data Vital Signs: Vital Signs Temp Pulse Resp BP 97.6 F L 85 17 154/80 H 07/22/22 11:12 07/22/22 11:12 07/22/22 11:12 07/22/22 11:12 Weight: 88.952 kg Body Mass Index (BMI) 29.8 Exam Physical Exam Const alert, oriented x3 and no apparent distress Psych mental status grossly normal, thought process normal, cooperative, affect normal and speech normal Nursing Assessment and Debridement Post-Debridement Measurements and Additional Note: Post-Debridement Measurements/Treatment WC - Nurse 1 - General Ulcer Assessment Start: 07/12/22 09:09 Freq: Status: Active Protocol: WC.LOWEXT Activity Type Activity Date Activity User E-sign Co-sign Detail Recorded Client Recorded Date Recorded By Document 07/19/22 13:19 ML [id number] 07/19/22 13:25 ML 07/19/22 13:19 WC - Today's Visit Information Type of service Follow-up 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/BAR MANAGER ) Arrival Mode Ambulatory Transfer Assistance None Patient Identification Verified (Name & Yes ) Patient Requires Transmission-Based No Precautions Safety Precautions NA Height and Weight Body Mass Index (BMI) 29.8 BMI Classification Overweight Vital Signs Temperature (97.8 F-99.1 F) 97.0 F L Temperature Source Temporal Pulse Rate (60-100) 72 Pulse Location Monitor Respiratory Rate (12-18) 16 Respiratory rate source Observation Blood Pressure (90/60-120/80) 116/53 L Blood Pressure Mean (mm Hg) 74 Source Monitor Position Sitting Blood Pressure Location Right Arm History Since Last Visit- (Skip if this is Patient's initial visit) Have you changed medications since your No last visit? Any new allergies or adverse reactions No Had a fall/change in ADL's that may No increase risk of falls Signs or symptoms of abuse and/or No neglect since last visit Have you been in the hospital since your No last visit? Has dressing in place as prescribed Yes Has compression in place as prescribed N/A Has offloadiing in place as prescribed N/A Experienced any changes in pain level or No management Left Footwear Regular Shoe Right Footwear Regular Shoe Pain Scale: 0-10 Numeric Is Patient Pain Free? Yes - Nurse 1 - General Ulcer Measurement Start: 07/12/22 09:09 Freq: Status: Active Protocol: Activity Type Activity Date Activity User E-sign Co-sign Detail Recorded Client Recorded Date Recorded By Document 07/19/22 13:19 ML [id number] 07/19/22 13:25 ML 07/19/22 13:19 Wound Center Nurse 1 #11 R Groin -Current Size (cm) - Length 2.3 -Current Size (cm) - Width 0.5 -Current Size (cm) - Depth 0.4 -Total Square Cm 1.15 -Exudate Amt Small -Exudate Type Serosanguineous -Wound Margin Distinct, Outline Attached -Slough/Fibrin Yes -Necrosis Amt Small (1-33%) -Necrotic Tissue Type Adherent Slough -Texture (Blanche-wound Skin Appearance) Assessed -Moisture (Blanche-wound Skin Appearance) Assessed -Color (Blanche-wound Skin Appearance) Assessed -Temperature (Blanche-wound Skin No Abnormality Appearance) (Pt Warm) -Tenderness on Palpation (Blanche-wound No Skin Appearance) -Ulcer Cleansing Rinsed/ Irrigated with Saline -Foul Odor after Cleansing No -Anesthetic Used 4% Lidocaine Solution WC - Nurse 2 - General Ulcer CM Notes Start: 07/12/22 09:09 Freq: Status: Active Protocol: Activity Type Activity Date Activity User E-sign Co-sign Detail Recorded Client Recorded Date Recorded By Document 07/19/22 15:04 PL [id number] 07/19/22 15:05 PL 07/19/22 15:04 Wound Center Nurse 2 -Time 13:32 -Correct Patient Yes -Correct Side, Site, Position Yes -Correct Procedure Yes -Procedure Performed Yes -Type of Procedure Debridement -Clinical Debridement Subcutaneous -Tissue Removed Subcutaneous -Post Debridement (cm) - Length 2.3 -Post Debridement (cm) - Width 0.5 -Post Debridement (cm) - Depth 0.3 -Total Square (Post) (cm) 1.15 -Area of Debridement (cm) - Length 2.3 -Area of Debridement (cm) - Width 0.5 -Total Square (Area) (cm) 1.15 -Tunneling No -Undermining/Tunneling No -Circular Undermining No -Wound/Ulcer Outcome Not Healed -Ulcer Cleansing Rinsed/ Irrigated with Saline -Foul Odor after Cleansing No -Bioengineered Tissue No -Bleeding Controlled with Pressure -Treatment Response Procedure Tolerated Well -Debridement - Subq, 1st 20sq cm Yes Pain Scale: 0-10 Numeric Is Patient Pain Free? Yes Assessment/Plan Assessment/Plan (1) Radiation injury: CODE(S): T66.XXXA - Radiation sickness, unspecified, initial encounter (2) History of melanoma: CODE(S): Z85.820 - Personal history of malignant melanoma of skin (3) Soft tissue radionecrosis: CODE(S): L59.8 - Other specified disorders of the skin and subcutaneous tissue related to radiation; Y84.2 - Radiological procedure and radiotherapy as the cause of abnormal reaction of the patient, or of later complication, without mention of misadventure at the time of the procedure PLAN: Plan The patient appears to be tolerating hyperbaric oxygen therapy well, which will be continued as per her medical plan. This note was generated with [employer] dictation software. It may contain incorrect words, spelling, and punctuation that were not noted in checking the note before signing.
--- NOTE | 2022-07-25 10:42 | HBO.PN.PCM_ITS ---
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 The patient was diagnosed with melanoma of the right calf in the 1969's. The melanoma was metastatic to lymph nodes. The patient underwent excision of her melanoma with lymphadenectomy in the right groin. She also underwent lengthy radiation treatments at the [facility] in [place], [place]. Melanoma recurred, and the patient was subsequently treated with monoclonal antibodies in 1984. However, due to the presence of severe radiation injury, persisting open wounds in the right thigh, MRSA infection, and severe radiation injury to the right femoral artery, the patient subsequently required right above-knee amputation in 2002. 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 Treatment included local ulcer care and hyperbaric oxygen therapy. She underwent a total of nearly 90 treatments of hyperbaric oxygen therapy. It is known that she tolerated the therapies well, and derived significant benefit. 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 She has also undergone several more sessions of hyperbaric oxygen therapy. She also received a series of 10 EpiFix allografts in the course of previous treatment. Each of the patient's prior courses of treatment in our facility have been protracted, with difficulties encountered in achieving complete healing. Her most recent course of treatment ended with successful healing and discharge in February 2021. The patient presented at this time with a recurrence of her right groin ulceration, again thought to be secondary to soft tissue radiation injury. The ulceration recurred spontaneously approximately 2-3 weeks prior to her presentation. The patient indicates that her health history has not changed since she was last treated in our facility. She has been approved for hyperbaric oxygen therapy treatment for the ulcer in her right groin caused by radionecrosis. Progress of Wound: Today is the 43rd treatment of hyperbaric oxygen therapy.? The patient is scheduled for 60 treatments total. Tolerance of hyperbaric oxygen therapy: Hyperbaric oxygen treatment was administered as per the facility's protocol.? Hyperbaric oxygen therapy was administered at 2.0 CHHAYA in 100% oxygen for 90 minutes without air breaks.? The patient tolerated hyperbaric oxygen well, without complications or complaints. Upon emergence of the hyperbaric chamber, the patient's vital signs remained stable.? She was discharged in good condition. Objective Data Objective Data Vital Signs: Vital Signs Temp Pulse Resp BP 97.6 F L 85 17 154/80 H 07/22/22 11:12 07/22/22 11:12 07/22/22 11:12 07/22/22 11:12 Weight: 196 lb 1.696 oz Body Mass Index (BMI) 29.8 Exam Physical Exam Const alert, oriented x3 and no apparent distress General Appearance: cooperative HEENT normocephalic HEENT Narrative: Able to visualize her ear tubes bilaterally Resp normal respiratory effort and clear to auscultation bilaterally Effort and Inspection: able to speak in complete sentences Psych affect normal Assessment/Plan Assessment/Plan (1) Radiation injury: CODE(S): T66.XXXA - Radiation sickness, unspecified, initial encounter (2) History of melanoma: CODE(S): Z85.820 - Personal history of malignant melanoma of skin (3) Soft tissue radionecrosis: CODE(S): L59.8 - Other specified disorders of the skin and subcutaneous tissue related to radiation; Y84.2 - Radiological procedure and radiotherapy as the cause of abnormal reaction of the patient, or of later complication, without mention of misadventure at the time of the procedure PLAN: Plan The patient appears to be tolerating hyperbaric oxygen therapy well, which will be continued as per her medical plan. This note was generated with [employer] dictation software. It may contain incorrect words, spelling, and punctuation that were not noted in checking the note before signing.
[2022-07-25 11:48] VITALS: BP 132/63; BP 159/72; PULSE 68; PULSE 92; RESP 18; TEMP 36.1; TEMP 36.4
[2022-07-26 09:16] VITALS: BP 151/86; TEMP 36.4; BMI 29.8
[2022-07-26 11:37] VITALS: BP 125/52; BP 131/77; PULSE 73; PULSE 81; RESP 17; RESP 18; TEMP 36.2; TEMP 36.3
--- NOTE | 2022-07-26 14:00 | PCM.WC.HP ---
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 The patient was diagnosed with melanoma of the right calf in the 1969's. The melanoma was metastatic to lymph nodes. The patient underwent excision of her melanoma with lymphadenectomy in the right groin. She also underwent lengthy radiation treatments at the [facility] in [place], [place]. Melanoma recurred, and the patient was subsequently treated with monoclonal antibodies in 1984. However, due to the presence of severe radiation injury, persisting open wounds in the right thigh, MRSA infection, and severe radiation injury to the right femoral artery, the patient subsequently required right above-knee amputation in 2002. 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 Treatment included local ulcer care and hyperbaric oxygen therapy. She underwent a total of nearly 90 treatments of hyperbaric oxygen therapy. It is known that she tolerated the therapies well, and derived significant benefit. 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 She has also undergone several more sessions of hyperbaric oxygen therapy. She also received a series of 10 EpiFix allografts in the course of previous treatment. Each of the patient's prior courses of treatment in our facility have been protracted, with difficulties encountered in achieving complete healing. Her most recent course of treatment ended with successful healing and discharge in February 2021. The patient presented at this time with a recurrence of her right groin ulceration, again thought to be secondary to soft tissue radiation injury. The ulceration recurred spontaneously approximately 2-3 weeks prior to her presentation. The patient indicates that her health history has not changed since she was last treated in our facility. She has been approved for hyperbaric oxygen therapy treatment for the ulcer in her right groin caused by radionecrosis. Progress of Wound: Today is the 44th treatment of hyperbaric oxygen therapy.? The patient is scheduled for 60 treatments total. Tolerance of hyperbaric oxygen therapy: Hyperbaric oxygen therapy was administered as per the facility's protocol.? Hyperbaric oxygen therapy was administered at 2.0 CHHAYA in 100% oxygen for 90 minutes without air breaks.? The patient tolerated hyperbaric oxygen therapy well, without complications or complaints. Upon emergence of the hyperbaric chamber, the patient's vital signs remained stable.? She was discharged in good condition. [facility]LY [facility] Medical History Bilateral cataracts Cancer Hemorrhoids Knee pain Radiation injury Home Medications famotidine 20 mg tablet 20 mg PO 06/20/17 [History Last Taken Unknown] pravastatin 20 mg tablet 20 mg PO DAILY 06/20/17 [History Last Taken Unknown] famotidine 40 mg tablet PO 90 days ##90 12/26/17 [History Last Taken Unknown] pravastatin 20 mg tablet PO 90 days ##90 12/26/17 [History Last Taken Unknown] Allergy/AdvReac Type Severity Reaction Status Date / Time No Known Allergies Allergy Verified 02/15/22 09:08 Family History Other Heart disease Hypertension Surgical History Hx of AKA (above knee amputation) Social History Smoking Status: Former smoker alcohol intake: current alcohol intake frequency: holidays/special occasions only Vital Signs Vital Signs Vital Signs: 07/26/22 09:16 07/26/22 11:37 Temperature 97.6 F L Temperature [Post Treatment] 97.4 F L Temperature [Pre Treatment] 97.2 F L Temperature Source Temporal Pulse Rate [Post Treatment] 73 Pulse Rate [Pre Treatment] 81 Respiratory Rate [Post Treatment] 17 Respiratory Rate [Pre Treatment] 18 Blood Pressure 151/86 H Blood Pressure [Post Treatment] 125/52 H Blood Pressure [Pre Treatment] 131/77 H Blood Pressure Mean 107 Blood Pressure Source Monitor Weight Weight: 196 lb 1.696 oz Body Mass Index (BMI) 29.8 Physical Exam Const alert, oriented x3 and no apparent distress General Appearance: cooperative, comfortable, well kempt and well developed Orientation / Consciousness: awake, oriented to person, oriented to place and oriented to time Exam Limitations: no limitations HEENT normocephalic, head/scalp atraumatic and hearing grossly normal bilaterally HEENT Narrative: Able to visualize her ear tubes bilaterally Head and Scalp: normal to inspection Eyes PERRL and EOMs intact bilaterally General Eye: normal appearance of both eyes Resp normal respiratory effort, no retractions, no use of accessory muscles and clear to auscultation bilaterally Effort and Inspection: able to speak in complete sentences Skin Wound Narrative: An ulceration is noted in the patient's right groin. It is little changed in appearance from the week prior. Dimensions are documented elsewhere. There is no sign of infection or cellulitis. There is a moderate amount of bioburden and nonviable tissue. A well-healed right above-knee amputation stump is noted. Neuro oriented x3, CN's II-XII intact bilaterally, moves all extremities and no focal motor deficits Sensorium / Orientation: awake, alert, oriented to person, oriented to place and oriented to time Psych affect normal Debridement Note Debridement Note Wound debrided: Right groin Laterality: Right Type of Debridement: Excisional debridement Anesthesia Used: 5% Lidocaine Gel Depth: Down to and including healthy tissue and in the subcutaneous layer Percentage of wound debrided: 100 Instrument Used: 3mm curette Tissue Removed: Bioburden and fibrous, nonviable tissue Severity: Fat Layer Exposed Amount of bleeding with debridement: Mild Bleeding Controlled with: Compression and gauze Patient tolerated procedure: Patient tolerated procedure well Post-Debridement Measurements and Additional Note: Post-Debridement Measurements/Treatment - Nurse 1 - General Ulcer Assessment Start: 07/12/22 09:09 Freq: Status: Active Protocol: KISHA.[email or web address] Activity Type Activity Date Activity User E-sign Co-sign Detail Recorded Client Recorded Date Recorded By Document 07/12/22 09:09 NM [id number] 07/12/22 09:12 AK Document 07/19/22 13:19 [id number] 07/19/22 13:25 ML Document 07/26/22 09:16 NM [id number] 07/26/22 09:23 NM 07/12/22 07/19/22 07/26/22 09:09 13:19 09:16 - Today's Visit Information Type of service Follow-up Visit Follow-up Visit Follow-up 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/DEPUTY REGISTER OF DEEDS (Physician/DEPUTY REGISTER OF DEEDS (Physician/DEPUTY REGISTER OF DEEDS ) ) ) Arrival Mode Ambulatory Ambulatory Ambulatory Transfer Assistance None Patient Identification Verified (Name & Yes Yes Yes ) Patient Requires Transmission-Based No No No Precautions Safety Precautions NA NA NA Height and Weight Body Mass Index (BMI) 29.8 29.8 29.8 BMI Classification Overweight Overweight Overweight Vital Signs Temperature (97.8 F-99.1 F) 97.2 F L 97.0 F L 97.6 F L Temperature Source Temporal Temporal Temporal Pulse Rate (60-100) 88 72 Pulse Location Monitor Monitor Respiratory Rate (12-18) 16 Respiratory rate source Observation Blood Pressure (90/60-120/80) 160/96 H 116/53 L 151/86 H Blood Pressure Mean 117 74 107 Source Monitor Monitor Monitor Position Sitting Blood Pressure Location Right Arm History Since Last Visit- (Skip if this is Patient's initial visit) Have you changed medications since your No No No last visit? Any new allergies or adverse reactions No No No Had a fall/change in ADL's that may No No No increase risk of falls Signs or symptoms of abuse and/or No No No neglect since last visit Have you been in the hospital since your No No No last visit? Has dressing in place as prescribed Yes Yes Yes Has compression in place as prescribed Yes N/A N/A Has offloadiing in place as prescribed N/A N/A N/A Experienced any changes in pain level or No No No management Left Footwear Regular Shoe Regular Shoe Regular Shoe Right Footwear Regular Shoe Regular Shoe Regular Shoe Pain Scale: 0-10 Numeric Is Patient Pain Free? Yes Yes Yes WC - Nurse 1 - General Ulcer Measurement Start: 07/12/22 09:09 Freq: Status: Active Protocol: Activity Type Activity Date Activity User E-sign Co-sign Detail Recorded Client Recorded Date Recorded By Document 07/12/22 09:09 NM [id number] 07/12/22 09:12 AK Document 07/19/22 13:19 ML [id number] 07/19/22 13:25 ML Document 07/26/22 09:16 NM [id number] 07/26/22 09:23 AK 07/12/22 07/19/22 07/26/22 09:09 13:19 09:16 Wound Center Nurse 1 #11 R Groin -Combined with other wound No No -Current Size (cm) - Length 2.5 2.3 0.9 -Current Size (cm) - Width 0.3 0.5 0.5 -Current Size (cm) - Depth 0.3 0.4 0.5 -Total Square Cm 0.75 1.15 0.45 -Date of Last Picture (Recall this 07/12/22 field) -Photo Taken Yes No -Epithelialization None Present -Tunneling No No -Undermining/Tunneling No No -Circular Undermining No No -Change in Wound Grade/Stage No -Exudate Amt Small Small Large -Exudate Type Serosanguineous Serosanguineous Yellow/Green -Wound Margin Distinct, Distinct, Distinct, Outline Outline Outline Attached Attached Attached -Granulation Amt Medium (34-66%) None Present (0 %) -Granulation Quality Runge -Slough/Fibrin Yes Yes Yes -Necrosis Amt Medium (34-66%) Small (1-33%) Large (67-100%) -Necrotic Tissue Type Adherent Slough Adherent Slough Adherent Slough -Structure Exposed N/A N/A -Texture (Blanche-wound Skin Appearance) Assessed, Assessed Assessed, Scarring Scarring -Moisture (Blanche-wound Skin Appearance) No Abnormality, Assessed No Abnormality, Assessed Assessed -Color (Blanche-wound Skin Appearance) No Abnormality, Assessed No Abnormality, Assessed Assessed -Temperature (Blanche-wound Skin No Abnormality No Abnormality No Abnormality Appearance) (Pt Warm) (Pt Warm) (Pt Warm) -Tenderness on Palpation (Blanche-wound No No No Skin Appearance) -Ulcer Cleansing Rinsed/ Rinsed/ Rinsed/ Irrigated with Irrigated with Irrigated with Saline Saline Saline -Foul Odor after Cleansing No No No -Anesthetic Used 4% Lidocaine 4% Lidocaine 4% Lidocaine Solution Solution Solution Lower Limb Edema Present No WC - Nurse 2 - General Ulcer CM Notes Start: 07/12/22 09:09 Freq: Status: Active Protocol: Activity Type Activity Date Activity User E-sign Co-sign Detail Recorded Client Recorded Date Recorded By Document 07/12/22 12:28 PL [id number] 07/12/22 12:30 PL Document 07/19/22 15:04 PL [id number] 07/19/22 15:05 PL Document 07/26/22 11:37 PL [id number] 07/26/22 11:38 PL 07/12/22 07/19/22 07/26/22 12:28 15:04 11:37 Wound Center Nurse 2 #11 R Groin -Time 09:20 13:32 09:35 -Correct Patient Yes Yes Yes -Correct Side, Site, Position Yes Yes Yes -Correct Procedure Yes Yes Yes -Procedure Performed Yes Yes Yes -Type of Procedure Debridement Debridement Debridement -Clinical Debridement Subcutaneous Subcutaneous Subcutaneous -Tissue Removed Dermis Subcutaneous Subcutaneous -Post Debridement (cm) - Length 2.5 2.3 0.9 -Post Debridement (cm) - Width 0.3 0.5 0.5 -Post Debridement (cm) - Depth 0.2 0.3 0.5 -Total Square (Post) (cm) 0.75 1.15 0.45 -Area of Debridement (cm) - Length 2.5 2.3 0.9 -Area of Debridement (cm) - Width 0.3 0.5 0.5 -Total Square (Area) (cm) 0.75 1.15 0.45 -Tunneling No No No -Undermining/Tunneling No No No -Circular Undermining No No No -Wound/Ulcer Outcome Not Healed Not Healed Not Healed -Ulcer Cleansing Rinsed/ Rinsed/ Rinsed/ Irrigated with Irrigated with Irrigated with Saline Saline Saline -Foul Odor after Cleansing No No No -Bioengineered Tissue No No No -Bleeding Controlled with Pressure Pressure -Treatment Response Procedure Procedure Tolerated Well Tolerated Well -Debridement - Subq, 1st 20sq cm Yes Yes Yes Pain Scale: 0-10 Numeric Is Patient Pain Free? Yes Yes Yes - Nurse 3 - General Ulcer D/C NN Start: 07/12/22 09:09 Freq: Status: Active Protocol: Activity Type Activity Date Activity User E-sign Co-sign Detail Recorded Client Recorded Date Recorded By Document 07/12/22 09:28 NM [id number] 07/12/22 09:28 NM 07/12/22 09:28 Wound Care Nurse 3 #11 R Groin -Ulcer Cleansing Rinsed/ Irrigated with Saline -Foul Odor after Cleansing No -Negative Pressure Wound Therapy N/A -Other Dressing nugauze in dakins -Primary Dressing Covered/Secured with Dry Gauze, Secured with Tape Pain Scale: 0-10 Numeric Is Patient Pain Free? Yes WC - Visit Discharge Discharge Condition Stable Ambulatory Status Ambulatory Transportation Private Auto Medication Reconcilliation completed & Yes provided to patient/care provider Clinical Summary of Care Provided Yes Assessment/Plan Assessment/Plan (1) Soft tissue radionecrosis: CODE(S): L59.8 - Other specified disorders of the skin and subcutaneous tissue related to radiation; Y84.2 - Radiological procedure and radiotherapy as the cause of abnormal reaction of the patient, or of later complication, without mention of misadventure at the time of the procedure (2) Radiation injury: CODE(S): T66.XXXA - Radiation sickness, unspecified, initial encounter (3) History of melanoma: CODE(S): Z85.820 - Personal history of malignant melanoma of skin PLAN: Plan Little change has been noted in recent weeks. The ulceration in the patient's right groin persists. She relates a small amount of drainage from the site, with gauze packing which is moist at which time it is removed each day. Therefore, we are to transition to you the use of dry 1/4 inch Nu Gauze packing, which will be used on a daily basis. The patient is to note whether the packing is moist upon removal each day. It is preferred that the packing be dry upon removal, facilitating the removal of senescent and devitalized material with the removal of the packing each day. The patient appears to be tolerating hyperbaric oxygen therapy well, which will be continued as per her medical plan. It is also noted that the patient has been started on Augmentin orally within the last week for a presumed ear infection. This note was generated with [employer] dictation software. It may contain incorrect words, spelling, and punctuation that were not noted in checking the note before signing. Total time: 28 minutes
[2022-07-27 10:01] VITALS: BP 122/64; BP 142/74; PULSE 68; PULSE 84; RESP 16; TEMP 36.1; TEMP 36.6
--- NOTE | 2022-07-27 11:49 | PCM.HBO.PN ---
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 The patient was diagnosed with melanoma of the right calf in the 1969's. The melanoma was metastatic to lymph nodes. The patient underwent excision of her melanoma with lymphadenectomy in the right groin. She also underwent lengthy radiation treatments at the [facility] in [place], [place]. Melanoma recurred, and the patient was subsequently treated with monoclonal antibodies in 1984. However, due to the presence of severe radiation injury, persisting open wounds in the right thigh, MRSA infection, and severe radiation injury to the right femoral artery, the patient subsequently required right above-knee amputation in 2002. 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 Treatment included local ulcer care and hyperbaric oxygen therapy. She underwent a total of nearly 90 treatments of hyperbaric oxygen therapy. It is known that she tolerated the therapies well, and derived significant benefit. 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 She has also undergone several more sessions of hyperbaric oxygen therapy. She also received a series of 10 EpiFix allografts in the course of previous treatment. Each of the patient's prior courses of treatment in our facility have been protracted, with difficulties encountered in achieving complete healing. Her most recent course of treatment ended with successful healing and discharge in February 2021. The patient presented at this time with a recurrence of her right groin ulceration, again thought to be secondary to soft tissue radiation injury. The ulceration recurred spontaneously approximately 2-3 weeks prior to her presentation. The patient indicates that her health history has not changed since she was last treated in our facility. She has been approved for hyperbaric oxygen therapy treatment for the ulcer in her right groin caused by radionecrosis. Progress of Wound: Today is the 44th treatment of hyperbaric oxygen therapy.? The patient is scheduled for 60 treatments total. Tolerance of hyperbaric oxygen therapy: Hyperbaric oxygen therapy was administered as per the facility's protocol.? Hyperbaric oxygen therapy was administered at 2.0 CHHAYA in 100% oxygen for 90 minutes without air breaks.? The patient tolerated hyperbaric oxygen therapy well, without complications or complaints. Upon emergence of the hyperbaric chamber, the patient's vital signs remained stable.? She was discharged in good condition. Subjective Subjective Tolerated HBO treatment well today finished her antibiotics and felt better Objective Data Objective Data Vital signs stable tolerated HBO #45 of 60 today we will continue with treatments Vital Signs: Vital Signs Temp Pulse Resp BP 97.8 F 84 16 142/74 H 07/27/22 10:01 07/27/22 10:01 07/27/22 10:01 07/27/22 10:01 Weight: 196 lb 1.696 oz Body Mass Index (BMI) 29.8 Exam Physical Exam Const oriented x3 General Appearance: cooperative Exam Limitations: no limitations HEENT normocephalic Head and Scalp: normal to inspection Face and Sinus: normal facial exam Nose: external nose normal General Ear: hearing grossly impaired External Ear: external ears normal Mouth: oral and palatal mucosa normal Eyes PERRL General Eye: normal appearance of both eyes Neck full ROM General: normal visual inspection Resp normal respiratory effort Effort and Inspection: able to speak in complete sentences Auscultation: clear to auscultation bilaterally Cardio regular rate and regular rhythm Palpation: normal PMI Rate: regular rate Rhythm: regular rhythm GI Auscultation: normoactive bowel sounds Palpation: soft and no hepatosplenomegaly external exam normal Back/Spine Cervical Spine: cervical ROM normal Thoracic Spine / Upper Back: normal to inspection Lumbar Spine / Lower Back: normal to inspection Extremity normal to inspection General Extremity: normal exam except as noted Skin no rashes or lesions noted Neuro oriented x3 Psych Appearance: grossly normal Speech: normal speech Thought Content: normal thought content Judgement: judgement good Nursing Assessment and Debridement Post-Debridement Measurements and Additional Note: Post-Debridement Measurements/Treatment - Nurse 1 - General Ulcer Assessment Start: 07/12/22 09:09 Freq: Status: Active Protocol: MICHAEL Activity Type Activity Date Activity User E-sign Co-sign Detail Recorded Client Recorded Date Recorded By Document 07/26/22 09:16 HAI [id number] 07/26/22 09:23 AK 07/26/22 09:16 - Today's Visit Information Type of service Follow-up 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/ASSISTANT CLINICAL DIRECTOR ) Arrival Mode Ambulatory Patient Identification Verified (Name & Yes ) Patient Requires Transmission-Based No Precautions Safety Precautions NA Height and Weight Body Mass Index (BMI) 29.8 BMI Classification Overweight Vital Signs Temperature (97.8 F-99.1 F) 97.6 F L Temperature Source Temporal Blood Pressure (90/60-120/80) 151/86 H Blood Pressure Mean (mm Hg) 107 Source Monitor History Since Last Visit- (Skip if this is Patient's initial visit) Have you changed medications since your No last visit? Any new allergies or adverse reactions No Had a fall/change in ADL's that may No increase risk of falls Signs or symptoms of abuse and/or No neglect since last visit Have you been in the hospital since your No last visit? Has dressing in place as prescribed Yes Has compression in place as prescribed N/A Has offloadiing in place as prescribed N/A Experienced any changes in pain level or No management Left Footwear Regular Shoe Right Footwear Regular Shoe Pain Scale: 0-10 Numeric Is Patient Pain Free? Yes WC - Nurse 1 - General Ulcer Measurement Start: 07/12/22 09:09 Freq: Status: Active Protocol: Activity Type Activity Date Activity User E-sign Co-sign Detail Recorded Client Recorded Date Recorded By Document 07/26/22 09:16 FL [id number] 07/26/22 09:23 AK 07/26/22 09:16 Wound Center Nurse 1 #11 R Groin -Combined with other wound No -Current Size (cm) - Length 0.9 -Current Size (cm) - Width 0.5 -Current Size (cm) - Depth 0.5 -Total Square Cm 0.45 -Photo Taken No -Tunneling No -Undermining/Tunneling No -Circular Undermining No -Change in Wound Grade/Stage No -Exudate Amt Large -Exudate Type Yellow/Green -Wound Margin Distinct, Outline Attached -Granulation Amt None Present (0 %) -Slough/Fibrin Yes -Necrosis Amt Large (67-100%) -Necrotic Tissue Type Adherent Slough -Structure Exposed N/A -Texture (Blanche-wound Skin Appearance) Assessed, Scarring -Moisture (Blanche-wound Skin Appearance) No Abnormality, Assessed -Color (Blanche-wound Skin Appearance) No Abnormality, Assessed -Temperature (Blanche-wound Skin No Abnormality Appearance) (Pt Warm) -Tenderness on Palpation (Blanche-wound No Skin Appearance) -Ulcer Cleansing Rinsed/ Irrigated with Saline -Foul Odor after Cleansing No -Anesthetic Used 4% Lidocaine Solution WC - Nurse 2 - General Ulcer CM Notes Start: 07/12/22 09:09 Freq: Status: Active Protocol: Activity Type Activity Date Activity User E-sign Co-sign Detail Recorded Client Recorded Date Recorded By Document 07/26/22 11:37 PL [id number] 07/26/22 11:38 PL 07/26/22 11:37 Wound Center Nurse 2 -Time 09:35 -Correct Patient Yes -Correct Side, Site, Position Yes -Correct Procedure Yes -Procedure Performed Yes -Type of Procedure Debridement -Clinical Debridement Subcutaneous -Tissue Removed Subcutaneous -Post Debridement (cm) - Length 0.9 -Post Debridement (cm) - Width 0.5 -Post Debridement (cm) - Depth 0.5 -Total Square (Post) (cm) 0.45 -Area of Debridement (cm) - Length 0.9 -Area of Debridement (cm) - Width 0.5 -Total Square (Area) (cm) 0.45 -Tunneling No -Undermining/Tunneling No -Circular Undermining No -Wound/Ulcer Outcome Not Healed -Ulcer Cleansing Rinsed/ Irrigated with Saline -Foul Odor after Cleansing No -Bioengineered Tissue No -Bleeding Controlled with Pressure -Treatment Response Procedure Tolerated Well -Debridement - Subq, 1st 20sq cm Yes Pain Scale: 0-10 Numeric Is Patient Pain Free? Yes Assessment/Plan Assessment/Plan (1) Radiation injury: CODE(S): T66.XXXA - Radiation sickness, unspecified, initial encounter (2) History of melanoma: CODE(S): Z85.820 - Personal history of malignant melanoma of skin (3) Soft tissue radionecrosis: CODE(S): L59.8 - Other specified disorders of the skin and subcutaneous tissue related to radiation; Y84.2 - Radiological procedure and radiotherapy as the cause of abnormal reaction of the patient, or of later complication, without mention of misadventure at the time of the procedure PLAN: Plan The patient appears to be tolerating hyperbaric oxygen therapy well, which will be continued as per her medical plan. This note was generated with [employer] software. It may contain incorrect words, spelling, and punctuation that were not noted in checking the note before signing.
[2022-07-28 11:39] VITALS: BP 132/63; BP 133/72; PULSE 71; PULSE 82; RESP 15; RESP 17; TEMP 36.4; TEMP 36.5
--- NOTE | 2022-07-28 12:41 | PCM.HBO.PN ---
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 The patient was diagnosed with melanoma of the right calf in the 1969's. 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 The patient underwent excision of her melanoma with lymphadenectomy in the right groin. She also underwent lengthy radiation treatments at the [facility] in [place], [place]. Melanoma recurred, and the patient was subsequently treated with monoclonal antibodies in 1984. However, due to the presence of severe radiation injury, persisting open wounds in the right thigh, MRSA infection, and severe radiation injury to the right femoral artery, the patient subsequently required right above-knee amputation in 2002. 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 Treatment included local ulcer care and hyperbaric oxygen therapy. She underwent a total of nearly 90 treatments of hyperbaric oxygen therapy. It is known that she tolerated the therapies well, and derived significant benefit. 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 She has also undergone several more sessions of hyperbaric oxygen therapy. She also received a series of 10 EpiFix allografts in the course of previous treatment. Each of the patient's prior courses of treatment in our facility have been protracted, with difficulties encountered in achieving complete healing. Her most recent course of treatment ended with successful healing and discharge in February 2021. The patient presented at this time with a recurrence of her right groin ulceration, again thought to be secondary to soft tissue radiation injury. The ulceration recurred spontaneously approximately 2-3 weeks prior to her presentation. The patient indicates that her health history has not changed since she was last treated in our facility. She has been approved for hyperbaric oxygen therapy treatment for the ulcer in her right groin caused by radionecrosis. Progress of Wound: Today is the 45th treatment of hyperbaric oxygen therapy.? The patient is scheduled for 60 treatments total. Tolerance of hyperbaric oxygen therapy: Hyperbaric oxygen therapy was administered as per the facility's protocol.? Hyperbaric oxygen therapy was administered at 2.0 CHHAYA in 100% oxygen for 90 minutes without air breaks.? The patient tolerated hyperbaric oxygen therapy well, without complications or complaints. Upon emergence of the hyperbaric chamber, the patient's vital signs remained stable.? She was discharged in good condition. Objective Data Objective Data Vital Signs: Vital Signs Temp Pulse Resp BP 97.7 F L 82 15 133/72 H 07/28/22 11:39 07/28/22 11:39 07/28/22 11:39 07/28/22 11:39 Weight: 196 lb 1.696 oz Body Mass Index (BMI) 29.8 Exam Physical Exam Const alert, oriented x3 and no apparent distress General Appearance: cooperative HEENT normocephalic HEENT Narrative: Able to visualize her ear tubes bilaterally Resp normal respiratory effort and clear to auscultation bilaterally Effort and Inspection: able to speak in complete sentences Psych affect normal Nursing Assessment and Debridement Post-Debridement Measurements and Additional Note: Post-Debridement Measurements/Treatment WC - Nurse 1 - General Ulcer Assessment Start: 07/12/22 09:09 Freq: Status: Active Protocol: MICHAEL Activity Type Activity Date Activity User E-sign Co-sign Detail Recorded Client Recorded Date Recorded By Document 07/26/22 09:16 [place] [id number] 07/26/22 09:23 AK 07/26/22 09:16 WC - Today's Visit Information Type of service Follow-up 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/MANAGER HOSPICE ) Arrival Mode Ambulatory Patient Identification Verified (Name & Yes ) Patient Requires Transmission-Based No Precautions Safety Precautions NA Height and Weight Body Mass Index (BMI) 29.8 BMI Classification Overweight Vital Signs Temperature (97.8 F-99.1 F) 97.6 F L Temperature Source Temporal Blood Pressure (90/60-120/80) 151/86 H Blood Pressure Mean (mm Hg) 107 Source Monitor History Since Last Visit- (Skip if this is Patient's initial visit) Have you changed medications since your No last visit? Any new allergies or adverse reactions No Had a fall/change in ADL's that may No increase risk of falls Signs or symptoms of abuse and/or No neglect since last visit Have you been in the hospital since your No last visit? Has dressing in place as prescribed Yes Has compression in place as prescribed N/A Has offloadiing in place as prescribed N/A Experienced any changes in pain level or No management Left Footwear Regular Shoe Right Footwear Regular Shoe Pain Scale: 0-10 Numeric Is Patient Pain Free? Yes - Nurse 1 - General Ulcer Measurement Start: 07/12/22 09:09 Freq: Status: Active Protocol: Activity Type Activity Date Activity User E-sign Co-sign Detail Recorded Client Recorded Date Recorded By Document 07/26/22 09:16 AK [id number] 07/26/22 09:23 [place] 07/26/22 09:16 Wound Center Nurse 1 #11 R Groin -Combined with other wound No -Current Size (cm) - Length 0.9 -Current Size (cm) - Width 0.5 -Current Size (cm) - Depth 0.5 -Total Square Cm 0.45 -Photo Taken No -Tunneling No -Undermining/Tunneling No -Circular Undermining No -Change in Wound Grade/Stage No -Exudate Amt Large -Exudate Type Yellow/Green -Wound Margin Distinct, Outline Attached -Granulation Amt None Present (0 %) -Slough/Fibrin Yes -Necrosis Amt Large (67-100%) -Necrotic Tissue Type Adherent Slough -Structure Exposed N/A -Texture (Blanche-wound Skin Appearance) Assessed, Scarring -Moisture (Blanche-wound Skin Appearance) No Abnormality, Assessed -Color (Blanche-wound Skin Appearance) No Abnormality, Assessed -Temperature (Blanche-wound Skin No Abnormality Appearance) (Pt Warm) -Tenderness on Palpation (Blanche-wound No Skin Appearance) -Ulcer Cleansing Rinsed/ Irrigated with Saline -Foul Odor after Cleansing No -Anesthetic Used 4% Lidocaine Solution WC - Nurse 2 - General Ulcer CM Notes Start: 07/12/22 09:09 Freq: Status: Active Protocol: Activity Type Activity Date Activity User E-sign Co-sign Detail Recorded Client Recorded Date Recorded By Document 07/26/22 11:37 PL [id number] 07/26/22 11:38 PL 07/26/22 11:37 Wound Center Nurse 2 -Time 09:35 -Correct Patient Yes -Correct Side, Site, Position Yes -Correct Procedure Yes -Procedure Performed Yes -Type of Procedure Debridement -Clinical Debridement Subcutaneous -Tissue Removed Subcutaneous -Post Debridement (cm) - Length 0.9 -Post Debridement (cm) - Width 0.5 -Post Debridement (cm) - Depth 0.5 -Total Square (Post) (cm) 0.45 -Area of Debridement (cm) - Length 0.9 -Area of Debridement (cm) - Width 0.5 -Total Square (Area) (cm) 0.45 -Tunneling No -Undermining/Tunneling No -Circular Undermining No -Wound/Ulcer Outcome Not Healed -Ulcer Cleansing Rinsed/ Irrigated with Saline -Foul Odor after Cleansing No -Bioengineered Tissue No -Bleeding Controlled with Pressure -Treatment Response Procedure Tolerated Well -Debridement - Subq, 1st 20sq cm Yes Pain Scale: 0-10 Numeric Is Patient Pain Free? Yes Charges/Coding Wound Center CF Procedures HBO Supervision: [id number] Hyperbaric Oxygen; supervision Assessment/Plan Assessment/Plan (1) Radiation injury: CODE(S): T66.XXXA - Radiation sickness, unspecified, initial encounter (2) History of melanoma: CODE(S): Z85.820 - Personal history of malignant melanoma of skin (3) Soft tissue radionecrosis: CODE(S): L59.8 - Other specified disorders of the skin and subcutaneous tissue related to radiation; Y84.2 - Radiological procedure and radiotherapy as the cause of abnormal reaction of the patient, or of later complication, without mention of misadventure at the time of the procedure PLAN: Plan The patient appears to be tolerating hyperbaric oxygen therapy well, which will be continued as per her medical plan. This note was generated with [employer] software. It may contain incorrect words, spelling, and punctuation that were not noted in checking the note before signing.
[2022-07-29 11:52] VITALS: BP 129/54; BP 144/71; PULSE 70; PULSE 90; RESP 16; TEMP 36.2; TEMP 36.3
--- NOTE | 2022-07-29 14:48 | HBO.PN.PCM_ITS ---
History of Present Illness Date of Service: 07/29/22 Chief Complaint: Soft tissue radionecrosis of the right groin with open ul ceration History of Wound: This is a 67-year-old female with a long and complicated past medical history. The patient was diagnosed with melanoma of the right calf in the 1969's. The melanoma was metastatic to lymph nodes. The patient underwent excision of her melanoma with lymphadenectomy in the right groin. She also underwent lengthy radiation treatments at the [facility] in [place], [place]. Melanoma recurred, and the patient was subsequently treated with monoclonal antibodies in 1984. However, due to the presence of severe radiation injury, persisting open wounds in the right thigh, MRSA infection, and severe radiation injury to the right femoral artery, the patient subsequently required right above-knee amputation in 2002. 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 Treatment included local ulcer care and hyperbaric oxygen therapy. She underwent a total of nearly 90 treatments of hyperbaric oxygen therapy. It is known that she tolerated the therapies well, and derived significant benefit. 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 She has also undergone several more sessions of hyperbaric oxygen therapy. She also received a series of 10 EpiFix allografts in the course of previous treatment. Each of the patient's prior courses of treatment in our facility have been protracted, with difficulties encountered in achieving complete healing. Her most recent course of treatment ended with successful healing and discharge in February 2021. The patient presented at this time with a recurrence of her right groin ulceration, again thought to be secondary to soft tissue radiation injury. The ulceration recurred spontaneously approximately 2-3 weeks prior to her presentation. The patient indicates that her health history has not changed since she was last treated in our facility. She has been approved for hyperbaric oxygen therapy treatment for the ulcer in her right groin caused by radionecrosis. Progress of Wound: Today is the 47th treatment of hyperbaric oxygen therapy.? The patient is scheduled for 60 treatments total. Tolerance of hyperbaric oxygen therapy: Hyperbaric oxygen therapy was administered as per the facility's protocol.? Hyperbaric oxygen therapy was administered at 2.0 CHHAYA in 100% oxygen for 90 minutes without air breaks.? The patient tolerated hyperbaric oxygen therapy well, without complications or complaints. Upon emergence of the hyperbaric chamber, the patient's vital signs remained stable.? She was discharged in good condition. Objective Data Objective Data Vital Signs: Vital Signs Temp Pulse Resp BP 97.2 F L 90 16 144/71 H 07/29/22 11:52 07/29/22 11:52 07/29/22 11:52 07/29/22 11:52 Weight: 88.952 kg Body Mass Index (BMI) 29.8 Exam Physical Exam Const alert, oriented x3 and no apparent distress Psych mental status grossly normal, thought process normal, cooperative, affect normal and speech normal Assessment/Plan Assessment/Plan (1) Radiation injury: CODE(S): T66.XXXA - Radiation sickness, unspecified, initial encounter (2) History of melanoma: CODE(S): Z85.820 - Personal history of malignant melanoma of skin (3) Soft tissue radionecrosis: CODE(S): L59.8 - Other specified disorders of the skin and subcutaneous tissue related to radiation; Y84.2 - Radiological procedure and radiotherapy as the cause of abnormal reaction of the patient, or of later complication, without mention of misadventure at the time of the procedure PLAN: Plan The patient appears to be tolerating hyperbaric oxygen therapy well, which will be continued as per her medical plan. This note was generated with [employer] software. It may contain incorrect words, spelling, and punctuation that were not noted in checking the note before signing.
--- NOTE | 2022-08-01 09:28 | PCM.HBO.PN ---
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 The patient was diagnosed with melanoma of the right calf in the 1969's. The melanoma was metastatic to lymph nodes. The patient underwent excision of her melanoma with lymphadenectomy in the right groin. She also underwent lengthy radiation treatments at the [facility] in [place], [place]. Melanoma recurred, and the patient was subsequently treated with monoclonal antibodies in 1984. However, due to the presence of severe radiation injury, persisting open wounds in the right thigh, MRSA infection, and severe radiation injury to the right femoral artery, the patient subsequently required right above-knee amputation in 2002. 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 Treatment included local ulcer care and hyperbaric oxygen therapy. She underwent a total of nearly 90 treatments of hyperbaric oxygen therapy. It is known that she tolerated the therapies well, and derived significant benefit. 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 She has also undergone several more sessions of hyperbaric oxygen therapy. She also received a series of 10 EpiFix allografts in the course of previous treatment. Each of the patient's prior courses of treatment in our facility have been protracted, with difficulties encountered in achieving complete healing. Her most recent course of treatment ended with successful healing and discharge in February 2021. The patient presented at this time with a recurrence of her right groin ulceration, again thought to be secondary to soft tissue radiation injury. The ulceration recurred spontaneously approximately 2-3 weeks prior to her presentation. The patient indicates that her health history has not changed since she was last treated in our facility. She has been approved for hyperbaric oxygen therapy treatment for the ulcer in her right groin caused by radionecrosis. Progress of Wound: Today is the 4th treatment of hyperbaric oxygen therapy.? The patient is scheduled for 60 treatments total. Tolerance of hyperbaric oxygen therapy: Hyperbaric oxygen therapy was administered as per the facility's protocol.? Hyperbaric oxygen therapy was administered at 2.0 CHHAYA in 100% oxygen for 90 minutes without air breaks.? The patient tolerated hyperbaric oxygen therapy well, without complications or complaints. Upon emergence of the hyperbaric chamber, the patient's vital signs remained stable.? She was discharged in good condition. Objective Data Objective Data Vital Signs: Vital Signs Temp Pulse Resp BP 97.2 F L 90 16 144/71 H 07/29/22 11:52 07/29/22 11:52 07/29/22 11:52 07/29/22 11:52 Weight: 196 lb 1.696 oz Body Mass Index (BMI) 29.8 Exam Physical Exam Const alert, oriented x3 and no apparent distress General Appearance: cooperative HEENT normocephalic HEENT Narrative: Able to visualize her ear tubes bilaterally Resp normal respiratory effort and clear to auscultation bilaterally Effort and Inspection: able to speak in complete sentences Psych affect normal Assessment/Plan Assessment/Plan (1) Radiation injury: CODE(S): T66.XXXA - Radiation sickness, unspecified, initial encounter (2) History of melanoma: CODE(S): Z85.820 - Personal history of malignant melanoma of skin (3) Soft tissue radionecrosis: CODE(S): L59.8 - Other specified disorders of the skin and subcutaneous tissue related to radiation; Y84.2 - Radiological procedure and radiotherapy as the cause of abnormal reaction of the patient, or of later complication, without mention of misadventure at the time of the procedure PLAN: Plan The patient appears to be tolerating hyperbaric oxygen therapy well, which will be continued as per her medical plan. This note was generated with [employer]ation software. It may contain incorrect words, spelling, and punctuation that were not noted in checking the note before signing.
[2022-08-01 11:11] VITALS: BP 117/58; BP 153/78; PULSE 64; PULSE 88; RESP 16; RESP 17; TEMP 36.1
[2022-08-02 09:04] VITALS: BP 161/83; PULSE 84; TEMP 35.6; BMI 29.8
[2022-08-02 11:04] VITALS: BP 123/60; BP 161/83; PULSE 67; PULSE 84; RESP 16; RESP 20; TEMP 35.6; TEMP 36.6
--- NOTE | 2022-08-02 12:23 | HP.PCM_ITS ---
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 The patient was diagnosed with melanoma of the right calf in the 1969's. The melanoma was metastatic to lymph nodes. The patient underwent excision of her melanoma with lymphadenectomy in the right groin. She also underwent lengthy radiation treatments at the [facility] in [place], [place]. Melanoma recurred, and the patient was subsequently treated with monoclonal antibodies in 1984. However, due to the presence of severe radiation injury, persisting open wounds in the right thigh, MRSA infection, and severe radiation injury to the right femoral artery, the patient subsequently required right above-knee amputation in 2002. 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 Treatment included local ulcer care and hyperbaric oxygen therapy. She underwent a total of nearly 90 treatments of hyperbaric oxygen therapy. It is known that she tolerated the therapies well, and derived significant benefit. 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 She has also undergone several more sessions of hyperbaric oxygen therapy. She also received a series of 10 EpiFix allografts in the course of previous treatment. Each of the patient's prior courses of treatment in our facility have been protracted, with difficulties encountered in achieving complete healing. Her most recent course of treatment ended with successful healing and discharge in February 2021. The patient presented at this time with a recurrence of her right groin ulceration, again thought to be secondary to soft tissue radiation injury. The ulceration recurred spontaneously approximately 2-3 weeks prior to her presentation. The patient indicates that her health history has not changed since she was last treated in our facility. She has been approved for hyperbaric oxygen therapy treatment for the ulcer in her right groin caused by radionecrosis. Progress of Wound: Today is the 49th treatment of hyperbaric oxygen therapy.? The patient is scheduled for 60 treatments total. Tolerance of hyperbaric oxygen therapy: Hyperbaric oxygen therapy was administered as per the facility's protocol.? Hyperbaric oxygen therapy was administered at 2.0 CHHAYA in 100% oxygen for 90 minutes without air breaks.? The patient tolerated hyperbaric oxygen therapy well, without complications or complaints. Upon emergence of the hyperbaric chamber, the patient's vital signs remained stable.? She was discharged in good condition. [facility] Medical History Bilateral cataracts Cancer Hemorrhoids Knee pain Radiation injury Home Medications famotidine 20 mg tablet 20 mg PO 06/20/17 [History Last Taken Unknown] pravastatin 20 mg tablet 20 mg PO DAILY 06/20/17 [History Last Taken Unknown] famotidine 40 mg tablet PO 90 days ##90 12/26/17 [History Last Taken Unknown] pravastatin 20 mg tablet PO 90 days ##90 12/26/17 [History Last Taken Unknown] Allergy/AdvReac Type Severity Reaction Status Date / Time No Known Allergies Allergy Verified 02/15/22 09:08 Family History Other Heart disease Hypertension Surgical History Hx of AKA (above knee amputation) Social History Smoking Status: Former smoker alcohol intake: current alcohol intake frequency: holidays/special occasions only Vital Signs Vital Signs Vital Signs: 08/02/22 09:04 08/02/22 11:04 Temperature 96.1 F L Temperature [Post Treatment] 98 F Temperature [Pre Treatment] 96.1 F L Temperature Source Temporal Pulse Rate 84 Pulse Rate [Post Treatment] 67 Pulse Rate [Pre Treatment] 84 Respiratory Rate [Post Treatment] 16 Respiratory Rate [Pre Treatment] 20 H Blood Pressure 161/83 H Blood Pressure [Post Treatment] 123/60 H Blood Pressure [Pre Treatment] 161/83 H Blood Pressure Mean 109 Blood Pressure Source Monitor Weight Weight: 196 lb 1.696 oz Body Mass Index (BMI) 29.8 Physical Exam Const alert, oriented x3 and no apparent distress General Appearance: cooperative, comfortable, well kempt and well developed Orientation / Consciousness: awake, oriented to person, oriented to place and oriented to time HEENT normocephalic, head/scalp atraumatic and hearing grossly normal bilaterally HEENT Narrative: Able to visualize her ear tubes bilaterally Head and Scalp: normal to inspection, normocephalic and atraumatic External Ear: external ears normal Eyes PERRL and EOMs intact bilaterally General Eye: normal appearance of both eyes Neck full ROM Resp normal respiratory effort, normal air movement, no retractions and no use of accessory muscles Effort and Inspection: able to speak in complete sentences and symmetric chest movement Skin Wound Narrative: A well-healed right above-knee amputation stump is noted. The ulceration in the right groin persists. It is little changed in size or appearance. Dimensions are documented elsewhere. There is no sign of infection or cellulitis. A moderate amount of bioburden is noted, particularly in the inferior portion of the ulceration. Neuro oriented x3, CN's II-XII intact bilaterally, moves all extremities and no focal motor deficits Sensorium / Orientation: awake, alert, oriented to person, oriented to place and oriented to time Psych affect normal Debridement Note Debridement Note Wound debrided: Right groin ulceration Laterality: Right Type of Debridement: Excisional debridement Anesthesia Used: 5% Lidocaine Gel Depth: Down to and including healthy tissue and in the subcutaneous layer Percentage of wound debrided: 100 Instrument Used: 3mm curette Tissue Removed: Bioburden and fibrous, nonviable tissue Severity: Fat Layer Exposed Amount of bleeding with debridement: Mild Bleeding Controlled with: Compression and gauze Patient tolerated procedure: Patient tolerated procedure well Post-Debridement Measurements and Additional Note: Post-Debridement Measurements/Treatment - Nurse 1 - General Ulcer Assessment Start: 07/12/22 09:09 Freq: Status: Active Protocol: MICHAEL Activity Type Activity Date Activity User E-sign Co-sign Detail Recorded Client Recorded Date Recorded By Document 07/12/22 09:09 SD [id number] 07/12/22 09:12 AK Document 07/19/22 13:19 ML [id number] 07/19/22 13:25 ML Document 07/26/22 09:16 SD [id number] 07/26/22 09:23 AK Document 08/02/22 09:04 AK [id number] 08/02/22 09:11 AK 07/12/22 07/19/22 07/26/22 09:09 13:19 09:16 - Today's Visit Information Type of service Follow-up Visit Follow-up Visit Follow-up 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/NOCTURNIST (Physician/NOCTURNIST (Physician/NOCTURNIST ) ) ) Arrival Mode Ambulatory Ambulatory Ambulatory Transfer Assistance None Patient Identification Verified (Name & Yes Yes Yes ) Patient Requires Transmission-Based No No No Precautions Safety Precautions NA NA NA Height and Weight Body Mass Index (BMI) 29.8 29.8 29.8 BMI Classification Overweight Overweight Overweight Vital Signs Temperature (97.8 F-99.1 F) 97.2 F L 97.0 F L 97.6 F L Temperature Source Temporal Temporal Temporal Pulse Rate (60-100) 88 72 Pulse Location Monitor Monitor Respiratory Rate (12-18) 16 Respiratory rate source Observation Blood Pressure (90/60-120/80) 160/96 H 116/53 L 151/86 H Blood Pressure Mean 117 74 107 Source Monitor Monitor Monitor Position Sitting Blood Pressure Location Right Arm History Since Last Visit- (Skip if this is Patient's initial visit) Have you changed medications since your No No No last visit? Any new allergies or adverse reactions No No No Had a fall/change in ADL's that may No No No increase risk of falls Signs or symptoms of abuse and/or No No No neglect since last visit Have you been in the hospital since your No No No last visit? Has dressing in place as prescribed Yes Yes Yes Has compression in place as prescribed Yes N/A N/A Has offloadiing in place as prescribed N/A N/A N/A Experienced any changes in pain level or No No No management Left Footwear Regular Shoe Regular Shoe Regular Shoe Right Footwear Regular Shoe Regular Shoe Regular Shoe Pain Scale: 0-10 Numeric Is Patient Pain Free? Yes Yes Yes 08/02/22 09:04 WC - Today's Visit Information Type of service Follow-up 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/NOCTURNIST ) Arrival Mode Ambulatory Transfer Assistance Patient Identification Verified (Name & Yes ) Patient Requires Transmission-Based No Precautions Safety Precautions NA Height and Weight Body Mass Index (BMI) 29.8 BMI Classification Overweight Vital Signs Temperature (97.8 F-99.1 F) 96.1 F L Temperature Source Temporal Pulse Rate (60-100) 84 Pulse Location Monitor Respiratory Rate (12-18) Respiratory rate source Blood Pressure (90/60-120/80) 161/83 H Blood Pressure Mean 109 Source Monitor Position Blood Pressure Location History Since Last Visit- (Skip if this is Patient's initial visit) Have you changed medications since your No last visit? Any new allergies or adverse reactions No Had a fall/change in ADL's that may No increase risk of falls Signs or symptoms of abuse and/or No neglect since last visit Have you been in the hospital since your No last visit? Has dressing in place as prescribed Yes Has compression in place as prescribed N/A Has offloadiing in place as prescribed N/A Experienced any changes in pain level or No management Left Footwear Regular Shoe Right Footwear Regular Shoe Pain Scale: 0-10 Numeric Is Patient Pain Free? Yes WC - Nurse 1 - General Ulcer Measurement Start: 07/12/22 09:09 Freq: Status: Active Protocol: Activity Type Activity Date Activity User E-sign Co-sign Detail Recorded Client Recorded Date Recorded By Document 07/12/22 09:09 SD [id number] 07/12/22 09:12 AK Document 07/19/22 13:19 ML [id number] 07/19/22 13:25 ML Document 07/26/22 09:16 AK [id number] 07/26/22 09:23 AK Document 08/02/22 09:04 AK [id number] 08/02/22 09:11 AK 07/12/22 07/19/22 07/26/22 09:09 13:19 09:16 Wound Center Nurse 1 #11 R Groin -Combined with other wound No No -Current Size (cm) - Length 2.5 2.3 0.9 -Current Size (cm) - Width 0.3 0.5 0.5 -Current Size (cm) - Depth 0.3 0.4 0.5 -Total Square Cm 0.75 1.15 0.45 -Date of Last Picture (Recall this 07/12/22 field) -Photo Taken Yes No -Epithelialization None Present -Tunneling No No -Undermining/Tunneling No No -Circular Undermining No No -Change in Wound Grade/Stage No -Exudate Amt Small Small Large -Exudate Type Serosanguineous Serosanguineous Yellow/Green -Wound Margin Distinct, Distinct, Distinct, Outline Outline Outline Attached Attached Attached -Granulation Amt Medium (34-66%) None Present (0 %) -Granulation Quality [place] -Slough/Fibrin Yes Yes Yes -Necrosis Amt Medium (34-66%) Small (1-33%) Large (67-100%) -Necrotic Tissue Type Adherent Slough Adherent Slough Adherent Slough -Structure Exposed N/A N/A -Texture (Blanche-wound Skin Appearance) Assessed, Assessed Assessed, Scarring Scarring -Moisture (Blanche-wound Skin Appearance) No Abnormality, Assessed No Abnormality, Assessed Assessed -Color (Blanche-wound Skin Appearance) No Abnormality, Assessed No Abnormality, Assessed Assessed -Temperature (Blanche-wound Skin No Abnormality No Abnormality No Abnormality Appearance) (Pt Warm) (Pt Warm) (Pt Warm) -Tenderness on Palpation (Blanche-wound No No No Skin Appearance) -Ulcer Cleansing Rinsed/ Rinsed/ Rinsed/ Irrigated with Irrigated with Irrigated with Saline Saline Saline -Foul Odor after Cleansing No No No -Anesthetic Used 4% Lidocaine 4% Lidocaine 4% Lidocaine Solution Solution Solution Lower Limb Edema Present No 08/02/22 09:04 Wound Center Nurse 1 #11 R Groin -Combined with other wound No -Current Size (cm) - Length 2.7 -Current Size (cm) - Width 0.5 -Current Size (cm) - Depth 0.4 -Total Square Cm 1.35 -Date of Last Picture (Recall this field) -Photo Taken No -Epithelialization -Tunneling No -Undermining/Tunneling No -Circular Undermining No -Change in Wound Grade/Stage No -Exudate Amt Medium -Exudate Type Serosanguineous -Wound Margin Distinct, Outline Attached -Granulation Amt Small (1-33%) -Granulation Quality [place] -Slough/Fibrin Yes -Necrosis Amt Large (67-100%) -Necrotic Tissue Type Adherent Slough -Structure Exposed N/A -Texture (Blanche-wound Skin Appearance) Assessed, Scarring -Moisture (Blanche-wound Skin Appearance) No Abnormality, Assessed -Color (Blanche-wound Skin Appearance) No Abnormality, Assessed -Temperature (Blanche-wound Skin No Abnormality Appearance) (Pt Warm) -Tenderness on Palpation (Blanche-wound No Skin Appearance) -Ulcer Cleansing Rinsed/ Irrigated with Saline -Foul Odor after Cleansing No -Anesthetic Used 4% Lidocaine Solution Lower Limb Edema Present WC - Nurse 2 - General Ulcer CM Notes Start: 07/12/22 09:09 Freq: Status: Active Protocol: Activity Type Activity Date Activity User E-sign Co-sign Detail Recorded Client Recorded Date Recorded By Document 07/12/22 12:28 PL [id number] 07/12/22 12:30 PL Document 07/19/22 15:04 PL [id number] 07/19/22 15:05 PL Document 07/26/22 11:37 PL [id number] 07/26/22 11:38 PL Document 08/02/22 11:35 [id number] 08/02/22 11:36 PL 07/12/22 07/19/22 07/26/22 12:28 15:04 11:37 Wound Center Nurse 2 #11 R Groin -Time 09:20 13:32 09:35 -Correct Patient Yes Yes Yes -Correct Side, Site, Position Yes Yes Yes -Correct Procedure Yes Yes Yes -Procedure Performed Yes Yes Yes -Type of Procedure -Type of Procedure Debridement Debridement Debridement -Clinical Debridement Subcutaneous Subcutaneous Subcutaneous -Tissue Removed Dermis Subcutaneous Subcutaneous -Post Debridement (cm) - Length 2.5 2.3 0.9 -Post Debridement (cm) - Width 0.3 0.5 0.5 -Post Debridement (cm) - Depth 0.2 0.3 0.5 -Total Square (Post) (cm) 0.75 1.15 0.45 -Area of Debridement (cm) - Length 2.5 2.3 0.9 -Area of Debridement (cm) - Width 0.3 0.5 0.5 -Total Square (Area) (cm) 0.75 1.15 0.45 -Tunneling No No No -Undermining/Tunneling No No No -Circular Undermining No No No -Wound/Ulcer Outcome Not Healed Not Healed Not Healed -Ulcer Cleansing Rinsed/ Rinsed/ Rinsed/ Irrigated with Irrigated with Irrigated with Saline Saline Saline -Foul Odor after Cleansing No No No -Bioengineered Tissue No No No -Bleeding Controlled with Pressure Pressure -Treatment Response Procedure Procedure Tolerated Well Tolerated Well -Debridement - Subq, 1st 20sq cm Yes Yes Yes Pain Scale: 0-10 Numeric Is Patient Pain Free? Yes Yes Yes 08/02/22 11:35 Wound Center Nurse 2 #11 R Groin -Time 09:20 -Correct Patient Yes -Correct Side, Site, Position Yes -Correct Procedure Yes -Procedure Performed Yes -Type of Procedure Debridement -Type of Procedure -Clinical Debridement Subcutaneous -Tissue Removed Subcutaneous -Post Debridement (cm) - Length 2.7 -Post Debridement (cm) - Width 0.5 -Post Debridement (cm) - Depth 0.4 -Total Square (Post) (cm) 1.35 -Area of Debridement (cm) - Length 2.7 -Area of Debridement (cm) - Width 0.5 -Total Square (Area) (cm) 1.35 -Tunneling No -Undermining/Tunneling No -Circular Undermining No -Wound/Ulcer Outcome Not Healed -Ulcer Cleansing Rinsed/ Irrigated with Saline -Foul Odor after Cleansing No -Bioengineered Tissue No -Bleeding Controlled with Pressure -Treatment Response Procedure Tolerated Well -Debridement - Subq, 1st 20sq cm Yes Pain Scale: 0-10 Numeric Is Patient Pain Free? Yes - Nurse 3 - General Ulcer D/C NN Start: 07/12/22 09:09 Freq: Status: Active Protocol: Activity Type Activity Date Activity User E-sign Co-sign Detail Recorded Client Recorded Date Recorded By Document 07/12/22 09:28 AK [id number] 07/12/22 09:28 AK Document 08/02/22 09:34 DL [id number] 08/02/22 09:36 DL 07/12/22 08/02/22 09:28 09:34 Wound Care Center Nurse 3 #11 R Groin -Ulcer Cleansing Rinsed/ Rinsed/ Irrigated with Irrigated with Saline Saline -Foul Odor after Cleansing No No -Negative Pressure Wound Therapy N/A -Primary Dressing Applied Nugauze, Iodoform -Other Dressing nugauze in dakins -Primary Dressing Covered/Secured with Dry Gauze, Dry Gauze, Secured with Secured with Tape Tape -Nugauze, Iodoform / 1 Treatment Response Procedure Tolerated Well Pain Scale: 0-10 Numeric Is Patient Pain Free? Yes Yes WC - Visit Discharge Discharge Condition Stable Stable Ambulatory Status Ambulatory Ambulatory Transportation Private Auto Private Auto Medication Reconcilliation completed & Yes provided to patient/care provider Clinical Summary of Care Provided Yes Assessment/Plan Assessment/Plan (1) Radiation injury: CODE(S): T66.XXXA - Radiation sickness, unspecified, initial encounter (2) History of melanoma: CODE(S): Z85.820 - Personal history of malignant melanoma of skin (3) Soft tissue radionecrosis: CODE(S): L59.8 - Other specified disorders of the skin and subcutaneous tissue related to radiation; Y84.2 - Radiological procedure and radiotherapy as the cause of abnormal reaction of the patient, or of later complication, without mention of misadventure at the time of the procedure PLAN: Plan The patient appears to be tolerating hyperbaric oxygen therapy well, which will be continued as per her medical plan. We are to make a slight transition in the care of the patient's right groin ulceration. She claims that there is a moderate amount of drainage from the site on a daily basis. We are to switch to the use of 1/2 inch iodoform gauze which will be packed within the wound daily. The iodoform gauze will be placed dry. The patient has now completed her course of Augmentin, which was prescribed due to suspected ear infection. We will consider alternative local wound management options upon the patient's follow-up visit next week, including the use of a PuraPly analog. Total time: 25 minutes This note was generated with [employer] dictation software. It may contain incorrect words, spelling, and punctuation that were not noted in checking the note before signing.
--- NOTE | 2022-08-04 10:51 | PCM.HBO.PN ---
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 The patient was diagnosed with melanoma of the right calf in the 1969's. 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 The patient underwent excision of her melanoma with lymphadenectomy in the right groin. She also underwent lengthy radiation treatments at the [facility] in [place], [place]. Melanoma recurred, and the patient was subsequently treated with monoclonal antibodies in 1984. However, due to the presence of severe radiation injury, persisting open wounds in the right thigh, MRSA infection, and severe radiation injury to the right femoral artery, the patient subsequently required right above-knee amputation in 2002. 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 Treatment included local ulcer care and hyperbaric oxygen therapy. She underwent a total of nearly 90 treatments of hyperbaric oxygen therapy. It is known that she tolerated the therapies well, and derived significant benefit. 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 She has also undergone several more sessions of hyperbaric oxygen therapy. She also received a series of 10 EpiFix allografts in the course of previous treatment. Each of the patient's prior courses of treatment in our facility have been protracted, with difficulties encountered in achieving complete healing. Her most recent course of treatment ended with successful healing and discharge in February 2021. The patient presented at this time with a recurrence of her right groin ulceration, again thought to be secondary to soft tissue radiation injury. The ulceration recurred spontaneously approximately 2-3 weeks prior to her presentation. The patient indicates that her health history has not changed since she was last treated in our facility. She has been approved for hyperbaric oxygen therapy treatment for the ulcer in her right groin caused by radionecrosis. Progress of Wound: Today is the 50th treatment of hyperbaric oxygen therapy.? The patient is scheduled for 60 treatments total. Tolerance of hyperbaric oxygen therapy: Hyperbaric oxygen therapy was administered as per the facility's protocol.? Hyperbaric oxygen therapy was administered at 2.0 CHHAYA in 100% oxygen for 90 minutes without air breaks.? The patient tolerated hyperbaric oxygen therapy well, without complications or complaints. Upon emergence of the hyperbaric chamber, the patient's vital signs remained stable.? She was discharged in good condition. Objective Data Objective Data Vital Signs: Vital Signs Temp Pulse Resp BP 96.1 F L 84 20 H 161/83 H 08/02/22 11:04 08/02/22 11:04 08/02/22 11:04 08/02/22 11:04 Weight: 196 lb 1.696 oz Body Mass Index (BMI) 29.8 Exam Physical Exam Const alert, oriented x3 and no apparent distress General Appearance: cooperative HEENT normocephalic HEENT Narrative: Able to visualize her ear tubes bilaterally Resp normal respiratory effort and clear to auscultation bilaterally Effort and Inspection: able to speak in complete sentences Psych affect normal Nursing Assessment and Debridement Post-Debridement Measurements and Additional Note: Post-Debridement Measurements/Treatment WC - Nurse 1 - General Ulcer Assessment Start: 07/12/22 09:09 Freq: Status: Active Protocol: MICHAEL Activity Type Activity Date Activity User E-sign Co-sign Detail Recorded Client Recorded Date Recorded By Document 08/02/22 09:04 KS [id number] 08/02/22 09:11 HAI 08/02/22 09:04 WC - Today's Visit Information 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 of service 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 Any new allergies or adverse reactions No Had a fall/change in ADL's that may No increase risk of falls Signs or symptoms of abuse and/or No neglect since last visit Have you been in the hospital since your No last visit? Has dressing in place as prescribed Yes Has compression in place as prescribed N/A Has offloadiing in place as prescribed N/A Experienced any changes in pain level or No management Left Footwear Regular Shoe Right Footwear Regular Shoe Pain Scale: 0-10 Numeric Is Patient Pain Free? Yes WC - Nurse 1 - General Ulcer Measurement Start: 07/12/22 09:09 Freq: Status: Active Protocol: Activity Type Activity Date Activity User E-sign Co-sign Detail Recorded Client Recorded Date Recorded By Document 08/02/22 09:04 KS [id number] 08/02/22 09:11 AK 08/02/22 09:04 Wound Center Nurse 1 #11 R Groin -Combined with other wound No -Current Size (cm) - Length 2.7 -Current Size (cm) - Width 0.5 -Current Size (cm) - Depth 0.4 -Total Square Cm 1.35 -Photo Taken No -Tunneling No -Undermining/Tunneling No -Circular Undermining No -Change in Wound Grade/Stage No -Exudate Amt Medium -Exudate Type Serosanguineous -Wound Margin Distinct, Outline Attached -Granulation Amt Small (1-33%) -Granulation Quality Leonardo -Slough/Fibrin Yes -Necrosis Amt Large (67-100%) -Necrotic Tissue Type Adherent Slough -Structure Exposed N/A -Texture (Blanche-wound Skin Appearance) Assessed, Scarring -Moisture (Blanche-wound Skin Appearance) No Abnormality, Assessed -Color (Blanche-wound Skin Appearance) No Abnormality, Assessed -Temperature (Blanche-wound Skin No Abnormality Appearance) (Pt Warm) -Tenderness on Palpation (Blanche-wound No Skin Appearance) -Ulcer Cleansing Rinsed/ Irrigated with Saline -Foul Odor after Cleansing No -Anesthetic Used 4% Lidocaine Solution WC - Nurse 2 - General Ulcer CM Notes Start: 07/12/22 09:09 Freq: Status: Active Protocol: Activity Type Activity Date Activity User E-sign Co-sign Detail Recorded Client Recorded Date Recorded By Document 08/02/22 11:35 PL [id number] 08/02/22 11:36 PL 08/02/22 11:35 Wound Center Nurse 2 -Time 09:20 -Correct Patient Yes -Correct Side, Site, Position Yes -Correct Procedure Yes -Procedure Performed Yes -Type of Procedure Debridement -Clinical Debridement Subcutaneous -Tissue Removed Subcutaneous -Post Debridement (cm) - Length 2.7 -Post Debridement (cm) - Width 0.5 -Post Debridement (cm) - Depth 0.4 -Total Square (Post) (cm) 1.35 -Area of Debridement (cm) - Length 2.7 -Area of Debridement (cm) - Width 0.5 -Total Square (Area) (cm) 1.35 -Tunneling No -Undermining/Tunneling No -Circular Undermining No -Wound/Ulcer Outcome Not Healed -Ulcer Cleansing Rinsed/ Irrigated with Saline -Foul Odor after Cleansing No -Bioengineered Tissue No -Bleeding Controlled with Pressure -Treatment Response Procedure Tolerated Well -Debridement - Subq, 1st 20sq cm Yes Pain Scale: 0-10 Numeric Is Patient Pain Free? Yes - Nurse 3 - General Ulcer D/C NN Start: 07/12/22 09:09 Freq: Status: Active Protocol: Activity Type Activity Date Activity User E-sign Co-sign Detail Recorded Client Recorded Date Recorded By Document 08/02/22 09:34 DL [id number] 08/02/22 09:36 DL 08/02/22 09:34 Wound Care Center Nurse 3 #11 R Groin -Ulcer Cleansing Rinsed/ Irrigated with Saline -Foul Odor after Cleansing No -Primary Dressing Applied Nugauze, Iodoform -Primary Dressing Covered/Secured with Dry Gauze, Secured with Tape -Nugauze, Iodoform 1/ 1 Treatment Response Procedure Tolerated Well Pain Scale: 0-10 Numeric Is Patient Pain Free? Yes - Visit Discharge Discharge Condition Stable Ambulatory Status Ambulatory Transportation Private Auto Charges/Coding Wound Center CF Procedures HBO Supervision: [id number] Hyperbaric Oxygen; supervision Assessment/Plan Assessment/Plan (1) Radiation injury: CODE(S): T66.XXXA - Radiation sickness, unspecified, initial encounter (2) History of melanoma: CODE(S): Z85.820 - Personal history of malignant melanoma of skin (3) Soft tissue radionecrosis: CODE(S): L59.8 - Other specified disorders of the skin and subcutaneous tissue related to radiation; Y84.2 - Radiological procedure and radiotherapy as the cause of abnormal reaction of the patient, or of later complication, without mention of misadventure at the time of the procedure PLAN: Plan The patient appears to be tolerating hyperbaric oxygen therapy well, which will be continued as per her medical plan. This note was generated with Dragon dictation software. It may contain incorrect words, spelling, and punctuation that were not noted in checking the note before signing.
[2022-08-04 11:19] VITALS: BP 141/68; BP 169/82; PULSE 71; PULSE 87; RESP 18; TEMP 36.1
--- NOTE | 2022-08-08 09:46 | PCM.HBO.PN ---
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 The patient was diagnosed with melanoma of the right calf in the 1969's. The melanoma was metastatic to lymph nodes. The patient underwent excision of her melanoma with lymphadenectomy in the right groin. She also underwent lengthy radiation treatments at the [facility] in [place], [place]. Melanoma recurred, and the patient was subsequently treated with monoclonal antibodies in 1984. However, due to the presence of severe radiation injury, persisting open wounds in the right thigh, MRSA infection, and severe radiation injury to the right femoral artery, the patient subsequently required right above-knee amputation in 2002. 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 Treatment included local ulcer care and hyperbaric oxygen therapy. She underwent a total of nearly 90 treatments of hyperbaric oxygen therapy. It is known that she tolerated the therapies well, and derived significant benefit. 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 She has also undergone several more sessions of hyperbaric oxygen therapy. She also received a series of 10 EpiFix allografts in the course of previous treatment. Each of the patient's prior courses of treatment in our facility have been protracted, with difficulties encountered in achieving complete healing. Her most recent course of treatment ended with successful healing and discharge in February 2021. The patient presented at this time with a recurrence of her right groin ulceration, again thought to be secondary to soft tissue radiation injury. The ulceration recurred spontaneously approximately 2-3 weeks prior to her presentation. The patient indicates that her health history has not changed since she was last treated in our facility. She has been approved for hyperbaric oxygen therapy treatment for the ulcer in her right groin caused by radionecrosis. Progress of Wound: Today is the 51st treatment of hyperbaric oxygen therapy.? The patient is scheduled for 60 treatments total. Tolerance of hyperbaric oxygen therapy: Hyperbaric oxygen therapy was administered as per the facility's protocol.? Hyperbaric oxygen therapy was administered at 2.0 CHHAYA in 100% oxygen for 90 minutes without air breaks.? The patient tolerated hyperbaric oxygen therapy well, without complications or complaints. Upon emergence of the hyperbaric chamber, the patient's vital signs remained stable.? She was discharged in good condition. Objective Data Objective Data Vital Signs: Vital Signs Temp Pulse Resp BP 97.0 F L 87 18 169/82 H 08/04/22 11:19 08/04/22 11:19 08/04/22 11:19 08/04/22 11:19 Weight: 196 lb 1.696 oz Body Mass Index (BMI) 29.8 Exam Physical Exam Const alert, oriented x3 and no apparent distress General Appearance: cooperative HEENT normocephalic HEENT Narrative: Able to visualize her ear tubes bilaterally Resp normal respiratory effort and clear to auscultation bilaterally Effort and Inspection: able to speak in complete sentences Psych affect normal Assessment/Plan Assessment/Plan (1) Radiation injury: CODE(S): T66.XXXA - Radiation sickness, unspecified, initial encounter (2) History of melanoma: CODE(S): Z85.820 - Personal history of malignant melanoma of skin (3) Soft tissue radionecrosis: CODE(S): L59.8 - Other specified disorders of the skin and subcutaneous tissue related to radiation; Y84.2 - Radiological procedure and radiotherapy as the cause of abnormal reaction of the patient, or of later complication, without mention of misadventure at the time of the procedure PLAN: Plan The patient appears to be tolerating hyperbaric oxygen therapy well, which will be continued as per her medical plan. This note was generated with atokore dictation software. It may contain incorrect words, spelling, and punctuation that were not noted in checking the note before signing.
[2022-08-08 11:56] VITALS: BP 125/60; BP 163/76; PULSE 71; PULSE 82; RESP 16; RESP 17; TEMP 36.3
[2022-08-09 11:32] VITALS: BP 120/52; PULSE 68; RESP 18; TEMP 36.4; BMI 29.8
[2022-08-09 11:41] VITALS: BP 120/25; BP 137/73; PULSE 68; PULSE 77; RESP 16; RESP 17; TEMP 36.2
--- NOTE | 2022-08-09 12:00 | HP.PCM_ITS ---
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 The patient was diagnosed with melanoma of the right calf in the 1969's. The melanoma was metastatic to lymph nodes. The patient underwent excision of her melanoma with lymphadenectomy in the right groin. She also underwent lengthy radiation treatments at the [facility] in [place], [place]. Melanoma recurred, and the patient was subsequently treated with monoclonal antibodies in 1984. However, due to the presence of severe radiation injury, persisting open wounds in the right thigh, MRSA infection, and severe radiation injury to the right femoral artery, the patient subsequently required right above-knee amputation in 2002. 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 Treatment included local ulcer care and hyperbaric oxygen therapy. She underwent a total of nearly 90 treatments of hyperbaric oxygen therapy. It is known that she tolerated the therapies well, and derived significant benefit. 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 She has also undergone several more sessions of hyperbaric oxygen therapy. She also received a series of 10 EpiFix allografts in the course of previous treatment. Each of the patient's prior courses of treatment in our facility have been protracted, with difficulties encountered in achieving complete healing. Her most recent course of treatment ended with successful healing and discharge in February 2021. The patient presented at this time with a recurrence of her right groin ulceration, again thought to be secondary to soft tissue radiation injury. The ulceration recurred spontaneously approximately 2-3 weeks prior to her presentation. The patient indicates that her health history has not changed since she was last treated in our facility. She has been approved for hyperbaric oxygen therapy treatment for the ulcer in her right groin caused by radionecrosis. Progress of Wound: Today is the 52nd treatment of hyperbaric oxygen therapy.? The patient is scheduled for 60 treatments total. Tolerance of hyperbaric oxygen therapy: Hyperbaric oxygen therapy was administered as per the facility's protocol.? Hyperbaric oxygen therapy was administered at 2.0 CHHAYA in 100% oxygen for 90 minutes without air breaks.? The patient tolerated hyperbaric oxygen therapy well, without complications or complaints. Upon emergence of the hyperbaric chamber, the patient's vital signs remained stable.? She was discharged in good condition. [facility] Medical History Bilateral cataracts Cancer Hemorrhoids Knee pain Radiation injury Home Medications famotidine 20 mg tablet 20 mg PO 06/20/17 [History Last Taken Unknown] pravastatin 20 mg tablet 20 mg PO DAILY 06/20/17 [History Last Taken Unknown] famotidine 40 mg tablet PO 90 days ##90 12/26/17 [History Last Taken Unknown] pravastatin 20 mg tablet PO 90 days ##90 12/26/17 [History Last Taken Unknown] Allergy/AdvReac Type Severity Reaction Status Date / Time No Known Allergies Allergy Verified 02/15/22 09:08 Family History Other Heart disease Hypertension Surgical History Hx of AKA (above knee amputation) Social History Smoking Status: Former smoker alcohol intake: current alcohol intake frequency: holidays/special occasions only Vital Signs Vital Signs Vital Signs: 08/09/22 11:32 08/09/22 11:41 Temperature 97.5 F L Temperature [Post Treatment] 97.1 F L Temperature [Pre Treatment] 97.1 F L Temperature Source Temporal Pulse Rate 68 Pulse Rate [Post Treatment] 68 Pulse Rate [Pre Treatment] 77 Respiratory Rate 18 Respiratory Rate [Post Treatment] 17 Respiratory Rate [Pre Treatment] 16 Blood Pressure 120/52 L Blood Pressure [Post Treatment] 120/25 L Blood Pressure [Pre Treatment] 137/73 H Blood Pressure Mean 74 Blood Pressure Source Monitor Weight Weight: 196 lb 1.696 oz Body Mass Index (BMI) 29.8 Physical Exam Const alert, oriented x3 and no apparent distress General Appearance: cooperative, comfortable, well kempt and well developed Orientation / Consciousness: awake, oriented to person, oriented to place and oriented to time Exam Limitations: no limitations HEENT normocephalic and head/scalp atraumatic HEENT Narrative: Able to visualize her ear tubes bilaterally Head and Scalp: normal to inspection, normocephalic and atraumatic Face and Sinus: normal facial exam Eyes PERRL, EOMs intact bilaterally and conjunctivae normal General Eye: normal appearance of both eyes Resp normal respiratory effort, normal air movement, no retractions and no use of accessory muscles Effort and Inspection: able to speak in complete sentences Skin Wound Narrative: A well-healed right above-knee amputation stump is noted. The ulceration of the right groin persists. It is little changed in size or appearance. Dimensions are documented elsewhere. There is no sign of infection or cellulitis. There is a moderate amount of bioburden. The inferior portion of the wound demonstrates a small amount of nonviable tissue. Neuro oriented x3, CN's II-XII intact bilaterally, moves all extremities and no focal motor deficits Sensorium / Orientation: awake, alert, oriented to person, oriented to place and oriented to time Psych affect normal Appearance: appropriate and well kempt Attitude: calm and engaged Speech: normal speech Thought Process: normal thought process Attention / Concentration: attention grossly intact Debridement Note Debridement Note Wound debrided: Right groin ulceration Laterality: Right Type of Debridement: Excisional debridement Anesthesia Used: 5% Lidocaine Gel Depth: Down to and including healthy tissue and in the subcutaneous layer Percentage of wound debrided: 100 Instrument Used: 3mm curette Tissue Removed: Bioburden and fibrous, nonviable tissue Severity: Fat Layer Exposed Amount of bleeding with debridement: Mild Bleeding Controlled with: Compression and gauze Patient tolerated procedure: Patient tolerated procedure well Post-Debridement Measurements and Additional Note: Post-Debridement Measurements/Treatment KISHA - Nurse 1 - General Ulcer Assessment Start: 07/12/22 09:09 Freq: Status: Active Protocol: MICHAEL Activity Type Activity Date Activity User E-sign Co-sign Detail Recorded Client Recorded Date Recorded By Document 07/12/22 09:09 NJ [id number] 07/12/22 09:12 AK Document 07/19/22 13:19 ML [id number] 07/19/22 13:25 ML Document 07/26/22 09:16 NJ [id number] 07/26/22 09:23 AK Document 08/02/22 09:04 AK [id number] 01/24/23 09:11 AK Document 08/09/22 11:32 DL [id number] 08/09/22 11:36 DL 07/12/22 07/19/22 07/26/22 09:09 13:19 09:16 WC - Today's Visit Information Type of service Follow-up Visit Follow-up Visit Follow-up 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/ADVERTISEMENT COMPOSITOR (Physician/ADVERTISEMENT COMPOSITOR (Physician/ADVERTISEMENT COMPOSITOR ) ) ) Arrival Mode Ambulatory Ambulatory Ambulatory Transfer Assistance None Patient Identification Verified (Name & Yes Yes Yes ) Patient Requires Transmission-Based No No No Precautions Safety Precautions NA NA NA Height and Weight Body Mass Index (BMI) 29.8 29.8 29.8 BMI Classification Overweight Overweight Overweight Vital Signs Temperature (97.8 F-99.1 F) 97.2 F L 97.0 F L 97.6 F L Temperature Source Temporal Temporal Temporal Pulse Rate (60-100) 88 72 Pulse Location Monitor Monitor Respiratory Rate (12-18) 16 Respiratory rate source Observation Blood Pressure (90/60-120/80) 160/96 H 116/53 L 151/86 H Blood Pressure Mean 117 74 107 Source Monitor Monitor Monitor Position Sitting Blood Pressure Location Right Arm History Since Last Visit- (Skip if this is Patient's initial visit) Have you changed medications since your No No No last visit? Any new allergies or adverse reactions No No No Had a fall/change in ADL's that may No No No increase risk of falls Signs or symptoms of abuse and/or No No No neglect since last visit Have you been in the hospital since your No No No last visit? Has dressing in place as prescribed Yes Yes Yes Has compression in place as prescribed Yes N/A N/A Has offloadiing in place as prescribed N/A N/A N/A Experienced any changes in pain level or No No No management Left Footwear Regular Shoe Regular Shoe Regular Shoe Right Footwear Regular Shoe Regular Shoe Regular Shoe Pain Scale: 0-10 Numeric Is Patient Pain Free? Yes Yes Yes 08/02/22 08/09/22 09:04 11:32 WC - Today's Visit Information Type of service Follow-up Visit Follow-up 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/ADVERTISEMENT COMPOSITOR (Physician/ADVERTISEMENT COMPOSITOR ) ) Arrival Mode Ambulatory Ambulatory, Crutches Transfer Assistance None Patient Identification Verified (Name & Yes Yes ) Patient Requires Transmission-Based No No Precautions Safety Precautions NA Height and Weight Body Mass Index (BMI) 29.8 29.8 BMI Classification Overweight Overweight Vital Signs Temperature (97.8 F-99.1 F) 96.1 F L 97.5 F L Temperature Source Temporal Temporal Pulse Rate (60-100) 84 68 Pulse Location Monitor Monitor Respiratory Rate (12-18) 18 Respiratory rate source Observation Blood Pressure (90/60-120/80) 161/83 H 120/52 L Blood Pressure Mean 109 74 Source Monitor Monitor Position Blood Pressure Location History Since Last Visit- (Skip if this is Patient's initial visit) Have you changed medications since your No No last visit? Any new allergies or adverse reactions No No Had a fall/change in ADL's that may No No increase risk of falls Signs or symptoms of abuse and/or No No neglect since last visit Have you been in the hospital since your No No last visit? Has dressing in place as prescribed Yes Yes Has compression in place as prescribed N/A N/A Has offloadiing in place as prescribed N/A Yes Experienced any changes in pain level or No No management Left Footwear Regular Shoe Right Footwear Regular Shoe Pain Scale: 0-10 Numeric Is Patient Pain Free? Yes Yes WC - Nurse 1 - General Ulcer Measurement Start: 07/12/22 09:09 Freq: Status: Active Protocol: Activity Type Activity Date Activity User E-sign Co-sign Detail Recorded Client Recorded Date Recorded By Document 07/12/22 09:09 NJ [id number] 07/12/22 09:12 AK Document 07/19/22 13:19 ML [id number] 07/19/22 13:25 ML Document 07/26/22 09:16 AK [id number] 07/26/22 09:23 AK Document 08/02/22 09:04 AK [id number] 08/02/22 09:11 AK Document 08/09/22 11:32 DL [id number] 08/09/22 11:36 DL 07/12/22 07/19/22 07/26/22 09:09 13:19 09:16 Wound Center Nurse 1 #11 R Groin -Combined with other wound No No -Current Size (cm) - Length 2.5 2.3 0.9 -Current Size (cm) - Width 0.3 0.5 0.5 -Current Size (cm) - Depth 0.3 0.4 0.5 -Total Square Cm 0.75 1.15 0.45 -Date of Last Picture (Recall this 07/12/22 field) -Photo Taken Yes No -Epithelialization None Present -Tunneling No No -Undermining/Tunneling No No -Circular Undermining No No -Change in Wound Grade/Stage No -Exudate Amt Small Small Large -Exudate Type Serosanguineous Serosanguineous Yellow/Green -Wound Margin Distinct, Distinct, Distinct, Outline Outline Outline Attached Attached Attached -Granulation Amt Medium (34-66%) None Present (0 %) -Granulation Quality Ball Ground -Slough/Fibrin Yes Yes Yes -Necrosis Amt Medium (34-66%) Small (1-33%) Large (67-100%) -Necrotic Tissue Type Adherent Slough Adherent Slough Adherent Slough -Structure Exposed N/A N/A -Texture (Blanche-wound Skin Appearance) Assessed, Assessed Assessed, Scarring Scarring -Moisture (Blanche-wound Skin Appearance) No Abnormality, Assessed No Abnormality, Assessed Assessed -Color (Blanche-wound Skin Appearance) No Abnormality, Assessed No Abnormality, Assessed Assessed -Temperature (Blanche-wound Skin No Abnormality No Abnormality No Abnormality Appearance) (Pt Warm) (Pt Warm) (Pt Warm) -Tenderness on Palpation (Blanche-wound No No No Skin Appearance) -Ulcer Cleansing Rinsed/ Rinsed/ Rinsed/ Irrigated with Irrigated with Irrigated with Saline Saline Saline -Foul Odor after Cleansing No No No -Anesthetic Used 4% Lidocaine 4% Lidocaine 4% Lidocaine Solution Solution Solution Lower Limb Edema Present No 08/02/22 08/09/22 09:04 11:32 Wound Center Nurse 1 #11 R Groin -Combined with other wound No -Current Size (cm) - Length 2.7 2.8 -Current Size (cm) - Width 0.5 0.6 -Current Size (cm) - Depth 0.4 0.5 -Total Square Cm 1.35 1.68 -Date of Last Picture (Recall this field) -Photo Taken No Yes -Epithelialization -Tunneling No -Undermining/Tunneling No -Circular Undermining No -Change in Wound Grade/Stage No -Exudate Amt Medium Medium -Exudate Type Serosanguineous Serosanguineous -Wound Margin Distinct, Thickened & Outline Rolled Under Attached -Granulation Amt Small (1-33%) Medium (34-66%) -Granulation Quality Ball Ground Ball Ground -Slough/Fibrin Yes -Necrosis Amt Large (67-100%) Medium (34-66%) -Necrotic Tissue Type Adherent Slough Adherent Slough -Structure Exposed N/A N/A -Texture (Blanche-wound Skin Appearance) Assessed, Scarring Scarring -Moisture (Blanche-wound Skin Appearance) No Abnormality, No Abnormality Assessed -Color (Blanche-wound Skin Appearance) No Abnormality, No Abnormality Assessed -Temperature (Blanche-wound Skin No Abnormality No Abnormality Appearance) (Pt Warm) (Pt Warm) -Tenderness on Palpation (Blanche-wound No No Skin Appearance) -Ulcer Cleansing Rinsed/ Rinsed/ Irrigated with Irrigated with Saline Saline -Foul Odor after Cleansing No No -Anesthetic Used 4% Lidocaine 4% Lidocaine Solution Solution Lower Limb Edema Present WC - Nurse 2 - General Ulcer CM Notes Start: 07/12/22 09:09 Freq: Status: Active Protocol: Activity Type Activity Date Activity User E-sign Co-sign Detail Recorded Client Recorded Date Recorded By Document 07/12/22 12:28 PL [id number] 07/12/22 12:30 PL Document 07/19/22 15:04 PL [id number] 07/19/22 15:05 PL Document 07/26/22 11:37 PL [id number] 07/26/22 11:38 PL Document 08/02/22 11:35 PL [id number] 08/02/22 11:36 PL Document 08/09/22 11:42 MW [id number] 08/09/22 11:48 MW 07/12/22 07/19/22 07/26/22 12:28 15:04 11:37 Wound Center Nurse 2 #11 R Groin -Time 09:20 13:32 09:35 -Correct Patient Yes Yes Yes -Correct Side, Site, Position Yes Yes Yes -Correct Procedure Yes Yes Yes -Procedure Performed Yes Yes Yes -Type of Procedure -Type of Procedure Debridement Debridement Debridement -Clinical Debridement Subcutaneous Subcutaneous Subcutaneous -Tissue Removed Dermis Subcutaneous Subcutaneous -Post Debridement (cm) - Length 2.5 2.3 0.9 -Post Debridement (cm) - Width 0.3 0.5 0.5 -Post Debridement (cm) - Depth 0.2 0.3 0.5 -Total Square (Post) (cm) 0.75 1.15 0.45 -Area of Debridement (cm) - Length 2.5 2.3 0.9 -Area of Debridement (cm) - Width 0.3 0.5 0.5 -Total Square (Area) (cm) 0.75 1.15 0.45 -Tunneling No No No -Undermining/Tunneling No No No -Circular Undermining No No No -Wound/Ulcer Outcome Not Healed Not Healed Not Healed -Ulcer Cleansing Rinsed/ Rinsed/ Rinsed/ Irrigated with Irrigated with Irrigated with Saline Saline Saline -Foul Odor after Cleansing No No No -Bioengineered Tissue No No No -Bleeding Controlled with Pressure Pressure -Treatment Response Procedure Procedure Tolerated Well Tolerated Well -Offloading -Debridement - Subq, 1st 20sq cm Yes Yes Yes Pain Scale: 0-10 Numeric Is Patient Pain Free? Yes Yes Yes 08/02/22 08/09/22 11:35 11:42 Wound Center Nurse 2 #11 R Groin -Time 09:20 11:42 -Correct Patient Yes Yes -Correct Side, Site, Position Yes Yes -Correct Procedure Yes Yes -Procedure Performed Yes Yes -Type of Procedure Debridement Debridement -Type of Procedure -Clinical Debridement Subcutaneous Subcutaneous -Tissue Removed Subcutaneous Subcutaneous -Post Debridement (cm) - Length 2.7 2.5 -Post Debridement (cm) - Width 0.5 0.5 -Post Debridement (cm) - Depth 0.4 0.3 -Total Square (Post) (cm) 1.35 1.25 -Area of Debridement (cm) - Length 2.7 2.5 -Area of Debridement (cm) - Width 0.5 0.5 -Total Square (Area) (cm) 1.35 1.25 -Tunneling No No -Undermining/Tunneling No No -Circular Undermining No No -Wound/Ulcer Outcome Not Healed Not Healed -Ulcer Cleansing Rinsed/ Rinsed/ Irrigated with Irrigated with Saline Saline -Foul Odor after Cleansing No No -Bioengineered Tissue No No -Bleeding Controlled with Pressure Pressure -Treatment Response Procedure Procedure Tolerated Well Tolerated Well -Offloading No -Debridement - Subq, 1st 20sq cm Yes Yes Pain Scale: 0-10 Numeric Is Patient Pain Free? Yes Yes - Nurse 3 - General Ulcer D/C NN Start: 07/12/22 09:09 Freq: Status: Active Protocol: Activity Type Activity Date Activity User E-sign Co-sign Detail Recorded Client Recorded Date Recorded By Document 07/12/22 09:28 AK [id number] 07/12/22 09:28 AK Document 08/02/22 09:34 DL [id number] 08/02/22 09:36 DL Document 08/09/22 11:49 MW [id number] 08/09/22 11:50 MW 07/12/22 08/02/22 08/09/22 09:28 09:34 11:49 Wound Care Center Nurse 3 #11 R Groin -Ulcer Cleansing Rinsed/ Rinsed/ Rinsed/ Irrigated with Irrigated with Irrigated with Saline Saline Saline -Foul Odor after Cleansing No No No -Negative Pressure Wound Therapy N/A N/A -Primary Dressing Applied Nugauze, Iodoform -Other Dressing nugauze in 1/2 iodofrom dakins -Primary Dressing Covered/Secured with Dry Gauze, Dry Gauze, Dry Gauze, Secured with Secured with Secured with Tape Tape Tape -Nugauze, Iodoform 07/13 1 Treatment Response Procedure Procedure Tolerated Well Tolerated Well Pain Scale: 0-10 Numeric Is Patient Pain Free? Yes Yes Yes Teaching: Wound Center Dressing Your Wound -Person Taught Patient -Teaching Method Discussion, Demonstration -Response to teaching Verbalize understanding WC - Visit Discharge Discharge Condition Stable Stable Stable Ambulatory Status Ambulatory Ambulatory Ambulatory Transportation Private Auto Private Auto Private Auto Accompanied by self Medication Reconcilliation completed & Yes No provided to patient/care provider Clinical Summary of Care Provided Yes Yes Assessment/Plan Assessment/Plan (1) Radiation injury: CODE(S): T66.XXXA - Radiation sickness, unspecified, initial encounter (2) History of melanoma: CODE(S): Z85.820 - Personal history of malignant melanoma of skin (3) Soft tissue radionecrosis: CODE(S): L59.8 - Other specified disorders of the skin and subcutaneous tissue related to radiation; Y84.2 - Radiological procedure and radiotherapy as the cause of abnormal reaction of the patient, or of later complication, without mention of misadventure at the time of the procedure PLAN: Plan The patient appears to be tolerating hyperbaric oxygen therapy well, which will be continued as per her medical plan. We are to continue the use of 1/2 inch iodoform gauze packing, applied by the patient on a daily basis. The patient has been instructed in the appropriate means of application. There has been relatively little change in the size or appearance of her right groin ulceration. We are to continue with the current iodoform gauze packing, but will consider an alternative means of management in the near future unless significant improvement is noted. One such option would be to consider the use of a PuraPly analog, using a collagen powder in conjunction with PHMB. Total time: 28 minutes This note was generated with [employer] dictation software. It may contain incorrect words, spelling, and punctuation that were not noted in checking the note before signing.
== END 2022-08-09 23:59 | disposition home or self-care (01) ==
LOC: WC 09:15
PROVIDERS: PCP Family Medicine; Visit Provider Surgery
DX: L59.8 Other specified disorders of the skin and subcutaneous tissue related to radiation (principal); Z89.619 Acquired absence of unspecified leg above knee; L97.112 Non-pressure chronic ulcer of right thigh with fat layer exposed; Z87.891 Personal history of nicotine dependence; Y84.2 Radiological procedure and radiotherapy as the cause of abnormal reaction of the patient, or of later complication, without mention of misadventure at the time of the procedure; T66.XXXA Radiation sickness, unspecified, initial encounter; Z85.820 Personal history of malignant melanoma of skin
CPT/HCPCS: 11042; 99183; G0277

== ENCOUNTER 2022-09-06 09:15 | Outpatient (RCR) | payer MEDICARE, OTHER, SELFPAY ==
[2022-08-10 00:23] VITALS: BP 137/73; PULSE 77; RESP 16; TEMP 36.2; BMI 29.8
[2022-08-10 11:31] VITALS: BP 134/64; BP 141/72; PULSE 70; PULSE 78; RESP 16; RESP 17; TEMP 35.7; TEMP 36.2
--- NOTE | 2022-08-10 11:56 | PCM.HBO.PN ---
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 The patient was diagnosed with melanoma of the right calf in the 1969's. 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 The patient underwent excision of her melanoma with lymphadenectomy in the right groin. She also underwent lengthy radiation treatments at the [facility] in [place], [place]. Melanoma recurred, and the patient was subsequently treated with monoclonal antibodies in 1984. However, due to the presence of severe radiation injury, persisting open wounds in the right thigh, MRSA infection, and severe radiation injury to the right femoral artery, the patient subsequently required right above-knee amputation in 2002. 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 Treatment included local ulcer care and hyperbaric oxygen therapy. She underwent a total of nearly 90 treatments of hyperbaric oxygen therapy. It is known that she tolerated the therapies well, and derived significant benefit. 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 She has also undergone several more sessions of hyperbaric oxygen therapy. She also received a series of 10 EpiFix allografts in the course of previous treatment. Each of the patient's prior courses of treatment in our facility have been protracted, with difficulties encountered in achieving complete healing. Her most recent course of treatment ended with successful healing and discharge in February 2021. The patient presented at this time with a recurrence of her right groin ulceration, again thought to be secondary to soft tissue radiation injury. The ulceration recurred spontaneously approximately 2-3 weeks prior to her presentation. The patient indicates that her health history has not changed since she was last treated in our facility. She has been approved for hyperbaric oxygen therapy treatment for the ulcer in her right groin caused by radionecrosis. Progress of Wound: Patient is tolerating #53 of 60 treatments for her radionecrosis of the groin. Vital signs of been stable denies any ear problems. Subjective Subjective Patient has no concerns Objective Data Objective Data Tolerating treatments well we will continue with HBO treatments Vital Signs: Vital Signs Temp Pulse Resp BP 96.3 F L 78 17 141/72 H 08/10/22 11:31 08/10/22 11:31 08/10/22 11:31 08/10/22 11:31 Weight: 196 lb 1.696 oz Body Mass Index (BMI) 29.8 Exam Physical Exam Const oriented x3 General Appearance: cooperative Exam Limitations: no limitations HEENT normocephalic Head and Scalp: normal to inspection Face and Sinus: normal facial exam Nose: external nose normal General Ear: hearing grossly impaired External Ear: external ears normal Mouth: oral and palatal mucosa normal Eyes PERRL General Eye: normal appearance of both eyes Neck full ROM General: normal visual inspection Resp normal respiratory effort Effort and Inspection: able to speak in complete sentences Auscultation: clear to auscultation bilaterally Cardio regular rate and regular rhythm Palpation: normal PMI Rate: regular rate Rhythm: regular rhythm GI Auscultation: normoactive bowel sounds Palpation: soft and no hepatosplenomegaly external exam normal Back/Spine Cervical Spine: cervical ROM normal Thoracic Spine / Upper Back: normal to inspection Lumbar Spine / Lower Back: normal to inspection Extremity normal to inspection General Extremity: normal exam except as noted Skin no rashes or lesions noted Neuro oriented x3 Psych Appearance: grossly normal Speech: normal speech Thought Content: normal thought content Judgement: judgement good Assessment/Plan Assessment/Plan (1) Radiation injury: CODE(S): T66.XXXA - Radiation sickness, unspecified, initial encounter (2) History of melanoma: CODE(S): Z85.820 - Personal history of malignant melanoma of skin (3) Soft tissue radionecrosis: CODE(S): L59.8 - Other specified disorders of the skin and subcutaneous tissue related to radiation; Y84.2 - Radiological procedure and radiotherapy as the cause of abnormal reaction of the patient, or of later complication, without mention of misadventure at the time of the procedure PLAN: Plan The patient appears to be tolerating hyperbaric oxygen therapy well, which will be continued as per her medical plan. This note was generated with [employer] dictation software. It may contain incorrect words, spelling, and punctuation that were not noted in checking the note before signing.
[2022-08-11 09:49] VITALS: BP 132/61; BP 151/79; PULSE 68; PULSE 83; RESP 17; RESP 18; TEMP 36.3
--- NOTE | 2022-08-11 12:00 | PCM.HBO.PN ---
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 The patient was diagnosed with melanoma of the right calf in the 1969's. 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 The patient underwent excision of her melanoma with lymphadenectomy in the right groin. She also underwent lengthy radiation treatments at the [facility] in [place], [place]. Melanoma recurred, and the patient was subsequently treated with monoclonal antibodies in 1984. However, due to the presence of severe radiation injury, persisting open wounds in the right thigh, MRSA infection, and severe radiation injury to the right femoral artery, the patient subsequently required right above-knee amputation in 2002. 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 Treatment included local ulcer care and hyperbaric oxygen therapy. She underwent a total of nearly 90 treatments of hyperbaric oxygen therapy. It is known that she tolerated the therapies well, and derived significant benefit. 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 She has also undergone several more sessions of hyperbaric oxygen therapy. She also received a series of 10 EpiFix allografts in the course of previous treatment. Each of the patient's prior courses of treatment in our facility have been protracted, with difficulties encountered in achieving complete healing. Her most recent course of treatment ended with successful healing and discharge in February 2021. The patient presented at this time with a recurrence of her right groin ulceration, again thought to be secondary to soft tissue radiation injury. The ulceration recurred spontaneously approximately 2-3 weeks prior to her presentation. The patient indicates that her health history has not changed since she was last treated in our facility. She has been approved for hyperbaric oxygen therapy treatment for the ulcer in her right groin caused by radionecrosis. Progress of Wound: Today is the 54th treatment of hyperbaric oxygen therapy.? The patient is scheduled for 60 treatments total. Tolerance of hyperbaric oxygen therapy: Hyperbaric oxygen therapy was administered as per the facility's protocol.? Hyperbaric oxygen therapy was administered at 2.0 CHHAYA in 100% oxygen for 90 minutes without air breaks.? The patient tolerated hyperbaric oxygen therapy well, without complications or complaints. Upon emergence of the hyperbaric chamber, the patient's vital signs remained stable.? She was discharged in good condition. Objective Data Objective Data Vital Signs: Vital Signs Temp Pulse Resp BP 97.4 F L 83 18 151/79 H 08/11/22 09:49 08/11/22 09:49 08/11/22 09:49 08/11/22 09:49 Weight: 196 lb 1.696 oz Body Mass Index (BMI) 29.8 Exam Physical Exam Const alert, oriented x3 and no apparent distress General Appearance: cooperative HEENT normocephalic HEENT Narrative: Able to visualize her ear tubes bilaterally Resp normal respiratory effort and clear to auscultation bilaterally Effort and Inspection: able to speak in complete sentences Psych affect normal Charges/Coding Wound Center CF Procedures HBO Supervision: [id number] Hyperbaric Oxygen; supervision Assessment/Plan Assessment/Plan (1) Radiation injury: CODE(S): T66.XXXA - Radiation sickness, unspecified, initial encounter (2) History of melanoma: CODE(S): Z85.820 - Personal history of malignant melanoma of skin (3) Soft tissue radionecrosis: CODE(S): L59.8 - Other specified disorders of the skin and subcutaneous tissue related to radiation; Y84.2 - Radiological procedure and radiotherapy as the cause of abnormal reaction of the patient, or of later complication, without mention of misadventure at the time of the procedure PLAN: Plan The patient appears to be tolerating hyperbaric oxygen therapy well, which will be continued as per her medical plan. This note was generated with [employer] dictation software. It may contain incorrect words, spelling, and punctuation that were not noted in checking the note before signing.
[2022-08-12 09:39] VITALS: BP 120/55; BP 168/79; PULSE 70; PULSE 79; RESP 16; RESP 17; TEMP 36.2
--- NOTE | 2022-08-12 15:37 | PCM.HBO.PN ---
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 The patient was diagnosed with melanoma of the right calf in the 1969's. The melanoma was metastatic to lymph nodes. The patient underwent excision of her melanoma with lymphadenectomy in the right groin. She also underwent lengthy radiation treatments at the [facility] in [place], [place]. Melanoma recurred, and the patient was subsequently treated with monoclonal antibodies in 1984. However, due to the presence of severe radiation injury, persisting open wounds in the right thigh, MRSA infection, and severe radiation injury to the right femoral artery, the patient subsequently required right above-knee amputation in 2002. In 2011, the patient was treated in our wound center for ulcerations of the right upper thigh and groin related to soft tissue radiation necrosis. Treatment included local ulcer care and hyperbaric oxygen therapy. She underwent a total of nearly 90 treatments of hyperbaric oxygen therapy. It is known that she tolerated the therapies well, and derived significant benefit. 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 She has also undergone several more sessions of hyperbaric oxygen therapy. She also received a series of 10 EpiFix allografts in the course of previous treatment. Each of the patient's prior courses of treatment in our facility have been protracted, with difficulties encountered in achieving complete healing. Her most recent course of treatment ended with successful healing and discharge in February 2021. The patient presented at this time with a recurrence of her right groin ulceration, again thought to be secondary to soft tissue radiation injury. The ulceration recurred spontaneously approximately 2-3 weeks prior to her presentation. The patient indicates that her health history has not changed since she was last treated in our facility. She has been approved for hyperbaric oxygen therapy treatment for the ulcer in her right groin caused by radionecrosis. Progress of Wound: Today is the 55th treatment of hyperbaric oxygen therapy.? The patient is scheduled for 60 treatments total. Tolerance of hyperbaric oxygen therapy: Hyperbaric oxygen therapy was administered as per the facility's protocol.? Hyperbaric oxygen therapy was administered at 2.0 CHHAYA in 100% oxygen for 90 minutes without air breaks.? The patient tolerated hyperbaric oxygen therapy well, without complications or complaints. Upon emergence of the hyperbaric chamber, the patient's vital signs remained stable.? She was discharged in good condition. Objective Data Objective Data Vital Signs: Vital Signs Temp Pulse Resp BP 97.1 F L 79 16 168/79 H 08/12/22 09:39 08/12/22 09:39 08/12/22 09:39 08/12/22 09:39 Weight: 88.952 kg Body Mass Index (BMI) 29.8 Assessment/Plan Assessment/Plan (1) Radiation injury: CODE(S): T66.XXXA - Radiation sickness, unspecified, initial encounter (2) History of melanoma: CODE(S): Z85.820 - Personal history of malignant melanoma of skin (3) Soft tissue radionecrosis: CODE(S): L59.8 - Other specified disorders of the skin and subcutaneous tissue related to radiation; Y84.2 - Radiological procedure and radiotherapy as the cause of abnormal reaction of the patient, or of later complication, without mention of misadventure at the time of the procedure PLAN: Plan The patient appears to be tolerating hyperbaric oxygen therapy well, which will be continued as per her medical plan. This note was generated with [employer] dictation software. It may contain incorrect words, spelling, and punctuation that were not noted in checking the note before signing.
[2022-08-15 10:12] VITALS: BP 115/56; BP 152/69; PULSE 66; PULSE 82; RESP 17; RESP 18; TEMP 36.2
--- NOTE | 2022-08-15 11:36 | HBO.PN.PCM_ITS ---
History of Present Illness Date of Service: 08/15/22 Chief Complaint: Soft tissue radionecrosis of the right groin with open ul ceration History of Wound: This is a 67-year-old female with a long and complicated past medical history. The patient was diagnosed with melanoma of the right calf in the 1969's. The melanoma was metastatic to lymph nodes. The patient underwent excision of her melanoma with lymphadenectomy in the right groin. She also underwent lengthy radiation treatments at the [facility] in [place], [place]. Melanoma recurred, and the patient was subsequently treated with monoclonal antibodies in 1984. However, due to the presence of severe radiation injury, persisting open wounds in the right thigh, MRSA infection, and severe radiation injury to the right femoral artery, the patient subsequently required right above-knee amputation in 2002. 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 Treatment included local ulcer care and hyperbaric oxygen therapy. She underwent a total of nearly 90 treatments of hyperbaric oxygen therapy. It is known that she tolerated the therapies well, and derived significant benefit. 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 She has also undergone several more sessions of hyperbaric oxygen therapy. She also received a series of 10 EpiFix allografts in the course of previous treatment. Each of the patient's prior courses of treatment in our facility have been protracted, with difficulties encountered in achieving complete healing. Her most recent course of treatment ended with successful healing and discharge in February 2021. The patient presented at this time with a recurrence of her right groin ulceration, again thought to be secondary to soft tissue radiation injury. The ulceration recurred spontaneously approximately 2-3 weeks prior to her presentation. The patient indicates that her health history has not changed since she was last treated in our facility. She has been approved for hyperbaric oxygen therapy treatment for the ulcer in her right groin caused by radionecrosis. Progress of Wound: Today is the 56th treatment of hyperbaric oxygen therapy.? The patient is scheduled for 60 treatments total. Tolerance of hyperbaric oxygen therapy: Hyperbaric oxygen therapy was administered as per the facility's protocol.? Hyperbaric oxygen therapy was administered at 2.0 CHHAYA in 100% oxygen for 90 minutes without air breaks.? The patient tolerated hyperbaric oxygen therapy well, without complications or complaints. Upon emergence of the hyperbaric chamber, the patient's vital signs remained stable.? She was discharged in good condition. Objective Data Objective Data Vital Signs: Vital Signs Temp Pulse Resp BP 97.1 F L 82 17 152/69 H 08/15/22 10:12 08/15/22 10:12 08/15/22 10:12 08/15/22 10:12 Weight: 196 lb 1.696 oz Body Mass Index (BMI) 29.8 Exam Physical Exam Const alert, oriented x3 and no apparent distress General Appearance: cooperative HEENT normocephalic HEENT Narrative: Able to visualize her ear tubes bilaterally. Right tube appears to be shifting out of TM. Resp normal respiratory effort and clear to auscultation bilaterally Effort and Inspection: able to speak in complete sentences Cardio regular rate and regular rhythm Psych affect normal Charges/Coding Wound Center CF Procedures HBO Supervision: [id number] Hyperbaric Oxygen; supervision Assessment/Plan Assessment/Plan (1) Radiation injury: CODE(S): T66.XXXA - Radiation sickness, unspecified, initial encounter (2) History of melanoma: CODE(S): Z85.820 - Personal history of malignant melanoma of skin (3) Soft tissue radionecrosis: CODE(S): L59.8 - Other specified disorders of the skin and subcutaneous tissue related to radiation; Y84.2 - Radiological procedure and radiotherapy as the cause of abnormal reaction of the patient, or of later complication, without mention of misadventure at the time of the procedure PLAN: Plan The patient appears to be tolerating hyperbaric oxygen therapy well, which will be continued as per her medical plan.
[2022-08-16 09:25] VITALS: BP 140/99; PULSE 85; RESP 18; TEMP 36; BMI 29.8
[2022-08-16 12:07] VITALS: BP 131/68; BP 140/99; PULSE 70; PULSE 85; RESP 16; RESP 18; TEMP 36
--- NOTE | 2022-08-16 12:53 | PCM.WC.HP ---
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 The patient was diagnosed with melanoma of the right calf in the 1969's. The melanoma was metastatic to lymph nodes. The patient underwent excision of her melanoma with lymphadenectomy in the right groin. She also underwent lengthy radiation treatments at the [facility] in [place], [place]. Melanoma recurred, and the patient was subsequently treated with monoclonal antibodies in 1984. However, due to the presence of severe radiation injury, persisting open wounds in the right thigh, MRSA infection, and severe radiation injury to the right femoral artery, the patient subsequently required right above-knee amputation in 2002. 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 Treatment included local ulcer care and hyperbaric oxygen therapy. She underwent a total of nearly 90 treatments of hyperbaric oxygen therapy. It is known that she tolerated the therapies well, and derived significant benefit. 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 She has also undergone several more sessions of hyperbaric oxygen therapy. She also received a series of 10 EpiFix allografts in the course of previous treatment. Each of the patient's prior courses of treatment in our facility have been protracted, with difficulties encountered in achieving complete healing. Her most recent course of treatment ended with successful healing and discharge in February 2021. The patient presented at this time with a recurrence of her right groin ulceration, again thought to be secondary to soft tissue radiation injury. The ulceration recurred spontaneously approximately 2-3 weeks prior to her presentation. The patient indicates that her health history has not changed since she was last treated in our facility. She has been approved for hyperbaric oxygen therapy treatment for the ulcer in her right groin caused by radionecrosis. Progress of Wound: Today is the 57th treatment of hyperbaric oxygen therapy.? The patient is scheduled for 60 treatments total. Tolerance of hyperbaric oxygen therapy: Hyperbaric oxygen therapy was administered as per the facility's protocol.? Hyperbaric oxygen therapy was administered at 2.0 CHHAYA in 100% oxygen for 90 minutes without air breaks.? The patient tolerated hyperbaric oxygen therapy well, without complications or complaints. Upon emergence of the hyperbaric chamber, the patient's vital signs remained stable.? She was discharged in good condition. [facility] Medical History Bilateral cataracts Cancer Hemorrhoids Knee pain Radiation injury Home Medications famotidine 20 mg tablet 20 mg PO 06/20/17 [History Last Taken Unknown] pravastatin 20 mg tablet 20 mg PO DAILY 06/20/17 [History Last Taken Unknown] famotidine 40 mg tablet PO 90 days ##90 12/26/17 [History Last Taken Unknown] pravastatin 20 mg tablet PO 90 days ##90 12/26/17 [History Last Taken Unknown] Allergy/AdvReac Type Severity Reaction Status Date / Time No Known Allergies Allergy Verified 02/15/22 09:08 Family History Other Heart disease Hypertension Surgical History Hx of AKA (above knee amputation) Social History Smoking Status: Former smoker alcohol intake: current alcohol intake frequency: holidays/special occasions only Vital Signs Vital Signs Vital Signs: 08/16/22 09:25 08/16/22 12:07 Temperature 96.8 F L Temperature [Post Treatment] 96.8 F L Temperature [Pre Treatment] 96.8 F L Temperature Source Temporal Pulse Rate 85 Pulse Rate [Post Treatment] 70 Pulse Rate [Pre Treatment] 85 Respiratory Rate 18 Respiratory Rate [Post Treatment] 16 Respiratory Rate [Pre Treatment] 18 Blood Pressure 140/99 H Blood Pressure [Post Treatment] 131/68 H Blood Pressure [Pre Treatment] 140/99 H Blood Pressure Mean 112 Blood Pressure Source Monitor Weight Weight: 196 lb 1.696 oz Body Mass Index (BMI) 29.8 Physical Exam Const alert, oriented x3 and no apparent distress General Appearance: cooperative, comfortable, well kempt and well developed Orientation / Consciousness: awake, oriented to person, oriented to place and oriented to time HEENT normocephalic, head/scalp atraumatic and hearing grossly normal bilaterally HEENT Narrative: Able to visualize her ear tubes bilaterally. Right tube appears to be shifting out of TM. Head and Scalp: normal to inspection and normocephalic External Ear: external ears normal Eyes EOMs intact bilaterally General Eye: normal appearance of both eyes Resp normal respiratory effort, normal air movement, no retractions and no use of accessory muscles Effort and Inspection: able to speak in complete sentences Cardio regular rate and regular rhythm Skin Wound Narrative: A well-healed right above-knee amputation stump is noted. A wound persists in the patient's right groin. There is a moderate amount of bioburden and nonviable tissue present. There is no sign of infection or cellulitis. Dimensions are documented elsewhere. Neuro oriented x3, CN's II-XII intact bilaterally, moves all extremities and no focal motor deficits Psych affect normal Appearance: grossly normal, appropriate and well kempt Attitude: calm and engaged Activity / Motor Behavior: appropriate eye contact Speech: normal speech Thought Process: normal thought process Attention / Concentration: attention grossly intact Insight: insight good Debridement Note Debridement Note Wound debrided: Right groin ulceration Laterality: Right Type of Debridement: Excisional debridement Anesthesia Used: 5% Lidocaine Gel Depth: Down to and including healthy tissue and in the subcutaneous layer Percentage of wound debrided: 100 Instrument Used: 3mm curette Tissue Removed: Bioburden and fibrous, nonviable tissue Severity: Fat Layer Exposed Amount of bleeding with debridement: Mild Bleeding Controlled with: Compression and gauze Patient tolerated procedure: Patient tolerated procedure well Post-Debridement Measurements and Additional Note: Post-Debridement Measurements/Treatment KISHA - Nurse 1 - General Ulcer Assessment Start: 08/10/22 11:30 Freq: Status: Active Protocol: MICHAEL Activity Type Activity Date Activity User E-sign Co-sign Detail Recorded Client Recorded Date Recorded By Document 08/16/22 09:25 DL [id number] 08/16/22 09:31 DL 08/16/22 09:25 - Today's Visit Information 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 service 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 ) Arrival Mode Ambulatory Transfer Assistance None Patient Identification Verified (Name & Yes ) Patient Requires Transmission-Based No Precautions Height and Weight Body Mass Index (BMI) 29.8 BMI Classification Overweight Vital Signs Temperature (97.8 F-99.1 F) 96.8 F L Temperature Source Temporal Pulse Rate (60-100) 85 Pulse Location Monitor Respiratory Rate (12-18) 18 Respiratory rate source Observation Blood Pressure (90/60-120/80) 140/99 H Blood Pressure Mean 112 Source Monitor History Since Last Visit- (Skip if this is Patient's initial visit) Have you changed medications since your No last visit? Any new allergies or adverse reactions No Had a fall/change in ADL's that may No increase risk of falls Signs or symptoms of abuse and/or No neglect since last visit Have you been in the hospital since your No last visit? Has dressing in place as prescribed Yes Has offloadiing in place as prescribed N/A Experienced any changes in pain level or No management Pain Scale: 0-10 Numeric Is Patient Pain Free? Yes WC - Nurse 1 - General Ulcer Measurement Start: 08/10/22 11:30 Freq: Status: Active Protocol: Activity Type Activity Date Activity User E-sign Co-sign Detail Recorded Client Recorded Date Recorded By Document 08/16/22 09:25 DL [id number] 08/16/22 09:31 DL 08/16/22 09:25 Wound Center Nurse 1 #11 R Groin -Current Size (cm) - Length 2.7 -Current Size (cm) - Width 0.7 -Current Size (cm) - Depth 0.7 -Total Square Cm 1.89 -Photo Taken Yes -Exudate Amt Medium -Exudate Type Serosanguineous -Wound Margin Thickened & Rolled Under -Granulation Amt Medium (34-66%) -Granulation Quality [place] -Necrosis Amt Medium (34-66%) -Necrotic Tissue Type Adherent Slough -Structure Exposed N/A -Texture (Blanche-wound Skin Appearance) Scarring -Moisture (Blanche-wound Skin Appearance) No Abnormality -Color (Blanche-wound Skin Appearance) No Abnormality -Temperature (Blanche-wound Skin No Abnormality Appearance) (Pt Warm) -Tenderness on Palpation (Blanche-wound No Skin Appearance) -Ulcer Cleansing Rinsed/ Irrigated with Saline -Foul Odor after Cleansing No -Anesthetic Used 4% Lidocaine Solution KISHA - Nurse 2 - General Ulcer CM Notes Start: 08/10/22 11:30 Freq: Status: Active Protocol: Activity Type Activity Date Activity User E-sign Co-sign Detail Recorded Client Recorded Date Recorded By Document 08/16/22 09:46 MW [id number] 08/16/22 09:50 MW 08/16/22 09:46 Wound Center Nurse 2 -Time 09:46 -Correct Patient Yes -Correct Side, Site, Position Yes -Correct Procedure Yes -Procedure Performed Yes -Type of Procedure Debridement -Clinical Debridement Subcutaneous -Tissue Removed Subcutaneous -Post Debridement (cm) - Length 2.7 -Post Debridement (cm) - Width 0.7 -Post Debridement (cm) - Depth 0.7 -Total Square (Post) (cm) 1.89 -Area of Debridement (cm) - Length 2.7 -Area of Debridement (cm) - Width 0.7 -Total Square (Area) (cm) 1.89 -Tunneling No -Undermining/Tunneling No -Circular Undermining No -Wound/Ulcer Outcome Not Healed -Ulcer Cleansing Rinsed/ Irrigated with Saline -Foul Odor after Cleansing No -Bioengineered Tissue No -Bleeding Controlled with Pressure -Treatment Response Procedure Tolerated Well -Offloading No -Debridement - Subq, 1st 20sq cm Yes Pain Scale: 0-10 Numeric Is Patient Pain Free? Yes Assessment/Plan Assessment/Plan (1) Radiation injury: CODE(S): T66.XXXA - Radiation sickness, unspecified, initial encounter (2) History of melanoma: CODE(S): Z85.820 - Personal history of malignant melanoma of skin (3) Soft tissue radionecrosis: CODE(S): L59.8 - Other specified disorders of the skin and subcutaneous tissue related to radiation; Y84.2 - Radiological procedure and radiotherapy as the cause of abnormal reaction of the patient, or of later complication, without mention of misadventure at the time of the procedure PLAN: Plan The patient appears to be tolerating hyperbaric oxygen therapy well, which will be continued as per her medical plan. We are to continue the use of 1/2 inch iodoform gauze, slightly moistened, for packing of the patient's right groin wound on a daily basis. The patient is to continue her hyperbaric oxygen therapy sessions, though only 3 more sessions remaining in her course. It was noted that one of her myringotomy tubes has displaced, though the patient tolerated her hyperbaric oxygen therapy session well today without complaints. Upon the patient's return in 1 week, we are to consider the use of collagen powder and PHMB for management of her right groin ulceration. Total time: 25 minutes
--- NOTE | 2022-08-17 10:08 | WC ---
Patient had tube fall out of right ear yesterday. There was a small amount of redness noted in this ear after tx 08/16/22. This morning patient noted tenderness and slight bulging to the right ear and a small amount of tenderness to the left ear. Laura assessed and decided not to do tx. stated 08/16/22 that if patient had issues with HBO tx we would just stop diving d/t the fact she only has 3 tx's left. HBO Tx's are cancelled at this time.
--- NOTE | 2022-08-17 11:07 | HBO.PN.PCM_ITS ---
History of Present Illness Date of Service: 08/17/22 Chief Complaint: Soft tissue radionecrosis of the right groin with open ul ceration History of Wound: This is a 67-year-old female with a long and complicated past medical history. The patient was diagnosed with melanoma of the right calf in the 1969's. The melanoma was metastatic to lymph nodes. The patient underwent excision of her melanoma with lymphadenectomy in the right groin. She also underwent lengthy radiation treatments at the [facility] in [place], [place]. Melanoma recurred, and the patient was subsequently treated with monoclonal antibodies in 1984. However, due to the presence of severe radiation injury, persisting open wounds in the right thigh, MRSA infection, and severe radiation injury to the right femoral artery, the patient subsequently required right above-knee amputation in 2002. 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 Treatment included local ulcer care and hyperbaric oxygen therapy. She underwent a total of nearly 90 treatments of hyperbaric oxygen therapy. It is known that she tolerated the therapies well, and derived significant benefit. 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 She has also undergone several more sessions of hyperbaric oxygen therapy. She also received a series of 10 EpiFix allografts in the course of previous treatment. Each of the patient's prior courses of treatment in our facility have been protracted, with difficulties encountered in achieving complete healing. Her most recent course of treatment ended with successful healing and discharge in February 2021. The patient presented at this time with a recurrence of her right groin ulceration, again thought to be secondary to soft tissue radiation injury. The ulceration recurred spontaneously approximately 2-3 weeks prior to her presentation. The patient indicates that her health history has not changed since she was last treated in our facility. She has been approved for hyperbaric oxygen therapy treatment for the ulcer in her right groin caused by radionecrosis. Progress of Wound: Today would have been her 58th treatment of HBOT. Her right ear tube is out and her right TM is red and bulging. She is complaining of right ear pain. Clinical decision to stop HBO treatments since she is almost done with the total 60 treatments. Discussed this decision with the patient and she agrees. Objective Data Objective Data Vital Signs: Vital Signs Temp Pulse Resp BP 96.8 F L 85 18 140/99 H 08/16/22 12:07 08/16/22 12:07 08/16/22 12:07 08/16/22 12:07 Weight: 196 lb 1.696 oz Body Mass Index (BMI) 29.8 Exam Nursing Assessment and Debridement Post-Debridement Measurements and Additional Note: Post-Debridement Measurements/Treatment KISHA - Nurse 1 - General Ulcer Assessment Start: 08/10/22 11:30 Freq: Status: Active Protocol: MICHAEL Activity Type Activity Date Activity User E-sign Co-sign Detail Recorded Client Recorded Date Recorded By Document 08/16/22 09:25 DL [id number] 08/16/22 09:31 DL 08/16/22 09:25 WC - Today's Visit Information Type of service 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 ) Arrival Mode Ambulatory Transfer Assistance None Patient Identification Verified (Name & Yes ) Patient Requires Transmission-Based No Precautions Height and Weight Body Mass Index (BMI) 29.8 BMI Classification Overweight Vital Signs Temperature (97.8 F-99.1 F) 96.8 F L Temperature Source Temporal Pulse Rate (60-100) 85 Pulse Location Monitor Respiratory Rate (12-18) 18 Respiratory rate source Observation Blood Pressure (90/60-120/80) 140/99 H Blood Pressure Mean (mm Hg) 112 Source Monitor History Since Last Visit- (Skip if this is Patient's initial visit) Have you changed medications since your No last visit? Any new allergies or adverse reactions No Had a fall/change in ADL's that may No increase risk of falls Signs or symptoms of abuse and/or No neglect since last visit Have you been in the hospital since your No last visit? Has dressing in place as prescribed Yes Has offloadiing in place as prescribed N/A Experienced any changes in pain level or No management Pain Scale: 0-10 Numeric Is Patient Pain Free? Yes - Nurse 1 - General Ulcer Measurement Start: 08/10/22 11:30 Freq: Status: Active Protocol: Activity Type Activity Date Activity User E-sign Co-sign Detail Recorded Client Recorded Date Recorded By Document 08/16/22 09:25 DL [id number] 08/16/22 09:31 DL 08/16/22 09:25 Wound Center Nurse 1 #11 R Groin -Current Size (cm) - Length 2.7 -Current Size (cm) - Width 0.7 -Current Size (cm) - Depth 0.7 -Total Square Cm 1.89 -Photo Taken Yes -Exudate Amt Medium -Exudate Type Serosanguineous -Wound Margin Thickened & Rolled Under -Granulation Amt Medium (34-66%) -Granulation Quality [place] -Necrosis Amt Medium (34-66%) -Necrotic Tissue Type Adherent Slough -Structure Exposed N/A -Texture (Blanche-wound Skin Appearance) Scarring -Moisture (Blanche-wound Skin Appearance) No Abnormality -Color (Blanche-wound Skin Appearance) No Abnormality -Temperature (Blanche-wound Skin No Abnormality Appearance) (Pt Warm) -Tenderness on Palpation (Blanche-wound No Skin Appearance) -Ulcer Cleansing Rinsed/ Irrigated with Saline -Foul Odor after Cleansing No -Anesthetic Used 4% Lidocaine Solution WC - Nurse 2 - General Ulcer CM Notes Start: 08/10/22 11:30 Freq: Status: Active Protocol: Activity Type Activity Date Activity User E-sign Co-sign Detail Recorded Client Recorded Date Recorded By Document 08/16/22 09:46 MW [id number] 08/16/22 09:50 MW 08/16/22 09:46 Wound Center Nurse 2 -Time 09:46 -Correct Patient Yes -Correct Side, Site, Position Yes -Correct Procedure Yes -Procedure Performed Yes -Type of Procedure Debridement -Clinical Debridement Subcutaneous -Tissue Removed Subcutaneous -Post Debridement (cm) - Length 2.7 -Post Debridement (cm) - Width 0.7 -Post Debridement (cm) - Depth 0.7 -Total Square (Post) (cm) 1.89 -Area of Debridement (cm) - Length 2.7 -Area of Debridement (cm) - Width 0.7 -Total Square (Area) (cm) 1.89 -Tunneling No -Undermining/Tunneling No -Circular Undermining No -Wound/Ulcer Outcome Not Healed -Ulcer Cleansing Rinsed/ Irrigated with Saline -Foul Odor after Cleansing No -Bioengineered Tissue No -Bleeding Controlled with Pressure -Treatment Response Procedure Tolerated Well -Offloading No -Debridement - Subq, 1st 20sq cm Yes Pain Scale: 0-10 Numeric Is Patient Pain Free? Yes Charges/Coding Visit Charges Office Visits / Consults: [id number] OV L2 Est Assessment/Plan Assessment/Plan (1) Radiation injury: CODE(S): T66.XXXA - Radiation sickness, unspecified, initial encounter (2) History of melanoma: CODE(S): Z85.820 - Personal history of malignant melanoma of skin (3) Soft tissue radionecrosis: CODE(S): L59.8 - Other specified disorders of the skin and subcutaneous tissue related to radiation; Y84.2 - Radiological procedure and radiotherapy as the cause of abnormal reaction of the patient, or of later complication, without mention of misadventure at the time of the procedure PLAN: Plan Stop HBOT treatments at 57 total due to right ear tube out and her right TM is bulging and erythematous with pain.
[2022-08-23 09:20] VITALS: BP 149/89; PULSE 80; TEMP 35.6; BMI 29.8
--- NOTE | 2022-08-23 12:55 | PCM.WC.HP ---
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 The patient was diagnosed with melanoma of the right calf in the 1969's. 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 The patient underwent excision of her melanoma with lymphadenectomy in the right groin. She also underwent lengthy radiation treatments at the [facility] in [place], [place]. Melanoma recurred, and the patient was subsequently treated with monoclonal antibodies in 1984. However, due to the presence of severe radiation injury, persisting open wounds in the right thigh, MRSA infection, and severe radiation injury to the right femoral artery, the patient subsequently required right above-knee amputation in 2002. 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 Treatment included local ulcer care and hyperbaric oxygen therapy. She underwent a total of nearly 90 treatments of hyperbaric oxygen therapy. It is known that she tolerated the therapies well, and derived significant benefit. 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 She has also undergone several more sessions of hyperbaric oxygen therapy. She also received a series of 10 EpiFix allografts in the course of previous treatment. Each of the patient's prior courses of treatment in our facility have been protracted, with difficulties encountered in achieving complete healing. Her most recent course of treatment ended with successful healing and discharge in February 2021. The patient presented at this time with a recurrence of her right groin ulceration, again thought to be secondary to soft tissue radiation injury. The ulceration recurred spontaneously approximately 2-3 weeks prior to her presentation. The patient indicates that her health history has not changed since she was last treated in our facility. [facility] Medical History Bilateral cataracts Cancer Hemorrhoids Knee pain Radiation injury Home Medications famotidine 20 mg tablet 20 mg PO 06/20/17 [History Last Taken Unknown] pravastatin 20 mg tablet 20 mg PO DAILY 06/20/17 [History Last Taken Unknown] famotidine 40 mg tablet PO 90 days ##90 12/26/17 [History Last Taken Unknown] pravastatin 20 mg tablet PO 90 days ##90 12/26/17 [History Last Taken Unknown] Allergy/AdvReac Type Severity Reaction Status Date / Time No Known Allergies Allergy Verified 02/15/22 09:08 Family History Other Heart disease Hypertension Surgical History Hx of AKA (above knee amputation) Social History Smoking Status: Former smoker alcohol intake: current alcohol intake frequency: holidays/special occasions only Vital Signs Vital Signs Vital Signs: 08/23/22 09:20 Temperature 96.1 F L Temperature Source Temporal Pulse Rate 80 Blood Pressure 149/89 H Blood Pressure Mean 109 Blood Pressure Source Monitor Weight Weight: 196 lb 1.696 oz Body Mass Index (BMI) 29.8 Physical Exam Const alert, oriented x3, no apparent distress and well nourished General Appearance: cooperative, comfortable, well kempt and well developed Orientation / Consciousness: awake, oriented to person, oriented to place and oriented to time HEENT normocephalic, head/scalp atraumatic and hearing grossly normal bilaterally HEENT Narrative: Able to visualize her ear tubes bilaterally. Right tube appears to be shifting out of TM. Head and Scalp: normal to inspection, normocephalic and atraumatic Face and Sinus: normal facial exam External Ear: external ears normal Eyes EOMs intact bilaterally General Eye: normal appearance of both eyes Resp normal respiratory effort, normal air movement, no retractions and no use of accessory muscles Effort and Inspection: able to speak in complete sentences Cardio regular rate and regular rhythm Skin Wound Narrative: A well-healed right above-knee amputation stump is noted. An ulceration persists in the patient's right groin. There is a moderate amount of bioburden and nonviable tissue present. There is no sign of infection or cellulitis. Dimensions are documented elsewhere. The patient's ulceration appears slightly larger. Neuro oriented x3, CN's II-XII intact bilaterally, moves all extremities and no focal motor deficits Sensorium / Orientation: awake, alert, oriented to person, oriented to place and oriented to time Psych affect normal Appearance: grossly normal, appropriate and well kempt Attitude: calm and engaged Activity / Motor Behavior: appropriate eye contact Speech: normal speech Thought Process: normal thought process Attention / Concentration: attention grossly intact Insight: insight good Debridement Note Debridement Note Wound debrided: Right groin ulceration Laterality: Right Type of Debridement: Excisional debridement Anesthesia Used: 5% Lidocaine Gel Depth: Down to and including healthy tissue and in the subcutaneous layer Percentage of wound debrided: 100 Instrument Used: 3mm curette Tissue Removed: Bioburden and fibrous, nonviable tissue Severity: Fat Layer Exposed Amount of bleeding with debridement: Mild Bleeding Controlled with: Compression and gauze Patient tolerated procedure: Patient tolerated procedure well Post-Debridement Measurements and Additional Note: Post-Debridement Measurements/Treatment - Nurse 1 - General Ulcer Assessment Start: 08/10/22 11:30 Freq: Status: Active Protocol: MICHAEL Activity Type Activity Date Activity User E-sign Co-sign Detail Recorded Client Recorded Date Recorded By Document 08/16/22 09:25 DL [id number] 08/16/22 09:31 DL Document 08/23/22 09:20 AK [id number] 08/23/22 09:21 AK 08/16/22 08/23/22 09:25 09:20 - Today's Visit Information Type of service Follow-up 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/SUPPLY ROOM CLERK ) Arrival Mode Ambulatory Transfer Assistance None Patient Identification Verified (Name & Yes ) Patient Requires Transmission-Based No Precautions Height and Weight Body Mass Index (BMI) 29.8 29.8 BMI Classification Overweight Overweight Vital Signs Temperature (97.8 F-99.1 F) 96.8 F L 96.1 F L Temperature Source Temporal Temporal Pulse Rate (60-100) 85 80 Pulse Location Monitor Monitor Respiratory Rate (12-18) 18 Respiratory rate source Observation Blood Pressure (90/60-120/80) 140/99 H 149/89 H Blood Pressure Mean 112 109 Source Monitor Monitor History Since Last Visit- (Skip if this is Patient's initial visit) Have you changed medications since your No No last visit? Any new allergies or adverse reactions No No Had a fall/change in ADL's that may No No increase risk of falls Signs or symptoms of abuse and/or No No neglect since last visit Have you been in the hospital since your No No last visit? Has dressing in place as prescribed Yes Yes Has compression in place as prescribed N/A Has offloadiing in place as prescribed N/A N/A Experienced any changes in pain level or No No management Left Footwear Regular Shoe Right Footwear Regular Shoe Pain Scale: 0-10 Numeric Is Patient Pain Free? Yes Yes - Nurse 1 - General Ulcer Measurement Start: 08/10/22 11:30 Freq: Status: Active Protocol: Activity Type Activity Date Activity User E-sign Co-sign Detail Recorded Client Recorded Date Recorded By Document 08/16/22 09:25 DL [id number] 08/16/22 09:31 DL Document 08/23/22 09:21 AK [id number] 08/23/22 09:28 AK 08/16/22 08/23/22 09:25 09:21 Wound Center Nurse 1 #11 R Groin -Combined with other wound No -Current Size (cm) - Length 2.7 3 -Current Size (cm) - Width 0.7 0.4 -Current Size (cm) - Depth 0.7 0.4 -Total Square Cm 1.89 1.2 -Photo Taken Yes Yes -Tunneling No -Undermining/Tunneling No -Circular Undermining No -Change in Wound Grade/Stage No -Exudate Amt Medium None Present -Exudate Type Serosanguineous Serosanguineous -Wound Margin Thickened & Distinct, Rolled Under Outline Attached -Granulation Amt Medium (34-66%) Medium (34-66%) -Granulation Quality [place] -Slough/Fibrin Yes -Necrosis Amt Medium (34-66%) Medium (34-66%) -Necrotic Tissue Type Adherent Slough Adherent Slough -Structure Exposed N/A N/A -Texture (Blanche-wound Skin Appearance) Scarring No Abnormality, Assessed -Moisture (Blanche-wound Skin Appearance) No Abnormality No Abnormality, Assessed -Color (Blanche-wound Skin Appearance) No Abnormality No Abnormality, Assessed -Temperature (Blanche-wound Skin No Abnormality No Abnormality Appearance) (Pt Warm) (Pt Warm) -Tenderness on Palpation (Blanche-wound No No Skin Appearance) -Ulcer Cleansing Rinsed/ Rinsed/ Irrigated with Irrigated with Saline Saline -Foul Odor after Cleansing No No -Anesthetic Used 4% Lidocaine 4% Lidocaine Solution Solution KISHA - Nurse 2 - General Ulcer CM Notes Start: 08/10/22 11:30 Freq: Status: Active Protocol: Activity Type Activity Date Activity User E-sign Co-sign Detail Recorded Client Recorded Date Recorded By Document 08/16/22 09:46 MW [id number] 08/16/22 09:50 MW Document 08/23/22 09:45 MW [id number] 08/23/22 09:49 MW 08/16/22 08/23/22 09:46 09:45 Wound Center Nurse 2 #11 R Groin -Time 09:46 09:45 -Correct Patient Yes Yes -Correct Side, Site, Position Yes Yes -Correct Procedure Yes Yes -Procedure Performed Yes Yes -Type of Procedure Debridement Debridement -Clinical Debridement Subcutaneous Subcutaneous -Tissue Removed Subcutaneous Subcutaneous -Post Debridement (cm) - Length 2.7 2.7 -Post Debridement (cm) - Width 0.7 0.8 -Post Debridement (cm) - Depth 0.7 0.4 -Total Square (Post) (cm) 1.89 2.16 -Area of Debridement (cm) - Length 2.7 2.7 -Area of Debridement (cm) - Width 0.7 0.8 -Total Square (Area) (cm) 1.89 2.16 -Tunneling No No -Undermining/Tunneling No No -Circular Undermining No No -Wound/Ulcer Outcome Not Healed Not Healed -Ulcer Cleansing Rinsed/ Rinsed/ Irrigated with Irrigated with Saline Saline -Foul Odor after Cleansing No No -Bioengineered Tissue No No -Bleeding Controlled with Pressure Pressure -Treatment Response Procedure Procedure Tolerated Well Tolerated Well -Offloading No No -Debridement - Subq, 1st 20sq cm Yes Yes Pain Scale: 0-10 Numeric Is Patient Pain Free? Yes Yes - Nurse 3 - General Ulcer D/C NN Start: 08/10/22 11:30 Freq: Status: Active Protocol: Activity Type Activity Date Activity User E-sign Co-sign Detail Recorded Client Recorded Date Recorded By Document 08/23/22 10:41 AK [id number] 08/23/22 10:41 AK 08/23/22 10:41 Wound Care Center Nurse 3 #11 R Groin -Ulcer Cleansing Rinsed/ Irrigated with Saline -Foul Odor after Cleansing No -Negative Pressure Wound Therapy N/A -Primary Dressing Applied C Hydrogel ($) -Other Dressing AMD -Primary Dressing Covered/Secured with Dry Gauze, Secured with Tape Pain Scale: 0-10 Numeric Is Patient Pain Free? Yes WC - Visit Discharge Discharge Condition Stable Transportation Private Auto Medication Reconcilliation completed & Yes provided to patient/care provider Clinical Summary of Care Provided Yes Assessment/Plan Assessment/Plan (1) Soft tissue radionecrosis: CODE(S): L59.8 - Other specified disorders of the skin and subcutaneous tissue related to radiation; Y84.2 - Radiological procedure and radiotherapy as the cause of abnormal reaction of the patient, or of later complication, without mention of misadventure at the time of the procedure (2) Radiation injury: CODE(S): T66.XXXA - Radiation sickness, unspecified, initial encounter (3) History of melanoma: CODE(S): Z85.820 - Personal history of malignant melanoma of skin PLAN: Plan The patient's course of hyperbaric oxygen therapy has been completed. A total of 57 HBO therapy sessions were implemented. The final 3 sessions were eliminated closed at the patient's myringotomy tubes spontaneously extruded, and the patient was noted to develop ear pain during the course of her final hyperbaric oxygen therapy treatment. With regard to her right groin ulceration, we are to transition to the use of a Get AMD Antimicrobial Foam dressing which is impregnated with PHMD, which will be used in combination with collagen hydrogel, and applied on a daily basis. The patient will return in 1 week for reassessment. Total time: 25 minutes
[2022-08-30 09:22] VITALS: BP 159/68; PULSE 82; RESP 18; TEMP 36; BMI 29.8
--- NOTE | 2022-08-30 11:25 | HP.PCM_ITS ---
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 The patient was diagnosed with melanoma of the right calf in the 1969's. 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 The patient underwent excision of her melanoma with lymphadenectomy in the right groin. She also underwent lengthy radiation treatments at the [facility] in [place], [place]. Melanoma recurred, and the patient was subsequently treated with monoclonal antibodies in 1984. However, due to the presence of severe radiation injury, persisting open wounds in the right thigh, MRSA infection, and severe radiation injury to the right femoral artery, the patient subsequently required right above-knee amputation in 2002. 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 Treatment included local ulcer care and hyperbaric oxygen therapy. She underwent a total of nearly 90 treatments of hyperbaric oxygen therapy. It is known that she tolerated the therapies well, and derived significant benefit. 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 She has also undergone several more sessions of hyperbaric oxygen therapy. She also received a series of 10 EpiFix allografts in the course of previous treatment. Each of the patient's prior courses of treatment in our facility have been protracted, with difficulties encountered in achieving complete healing. Her most recent course of treatment ended with successful healing and discharge in February 2021. The patient presented at this time with a recurrence of her right groin ulceration, again thought to be secondary to soft tissue radiation injury. The ulceration recurred spontaneously approximately 2-3 weeks prior to her presentation. The patient indicates that her health history has not changed since she was last treated in our facility. [facility] Medical History Bilateral cataracts Cancer Hemorrhoids Knee pain Radiation injury Home Medications famotidine 20 mg tablet 20 mg PO 06/20/17 [History Last Taken Unknown] pravastatin 20 mg tablet 20 mg PO DAILY 06/20/17 [History Last Taken Unknown] famotidine 40 mg tablet PO 90 days ##90 12/26/17 [History Last Taken Unknown] pravastatin 20 mg tablet PO 90 days ##90 12/26/17 [History Last Taken Unknown] Allergy/AdvReac Type Severity Reaction Status Date / Time No Known Allergies Allergy Verified 02/15/22 09:08 Family History Other Heart disease Hypertension Surgical History Hx of AKA (above knee amputation) Social History Smoking Status: Former smoker alcohol intake: current alcohol intake frequency: holidays/special occasions only Vital Signs Vital Signs Vital Signs: 08/30/22 09:22 Temperature 96.8 F L Temperature Source Temporal Pulse Rate 82 Respiratory Rate 18 Blood Pressure 159/68 H Blood Pressure Mean 98 Blood Pressure Source Monitor Weight Weight: 196 lb 1.696 oz Body Mass Index (BMI) 29.8 Physical Exam Const alert, oriented x3, no apparent distress and well nourished General Appearance: cooperative, comfortable, well kempt and well developed Orientation / Consciousness: awake, oriented to person, oriented to place and oriented to time HEENT normocephalic, head/scalp atraumatic and hearing grossly normal bilaterally HEENT Narrative: Able to visualize her ear tubes bilaterally. Right tube appears to be shifting out of TM. Head and Scalp: normal to inspection, normocephalic and atraumatic Face and Sinus: normal facial exam External Ear: external ears normal Eyes EOMs intact bilaterally General Eye: normal appearance of both eyes Resp normal respiratory effort, normal air movement, no retractions and no use of accessory muscles Effort and Inspection: able to speak in complete sentences Cardio regular rate and regular rhythm Skin Wound Narrative: A well-healed right above-knee amputation stump is noted. An ulceration persists in the patient's right groin. There is a moderate amount of bioburden and nonviable tissue present. There is no sign of infection or cellulitis. Dimensions are documented elsewhere. Neuro oriented x3, CN's II-XII intact bilaterally, moves all extremities and no focal motor deficits Sensorium / Orientation: awake, alert, oriented to person, oriented to place and oriented to time Psych affect normal Appearance: grossly normal, appropriate and well kempt Attitude: calm and engaged Activity / Motor Behavior: appropriate eye contact Speech: normal speech Thought Process: normal thought process Attention / Concentration: attention grossly intact Insight: insight good Debridement Note Debridement Note Wound debrided: Right groin ulceration Laterality: Right Type of Debridement: Excisional debridement Anesthesia Used: 5% Lidocaine Gel Depth: Down to and including healthy tissue and in the subcutaneous layer Percentage of wound debrided: 100 Instrument Used: 3mm curette Tissue Removed: Bioburden and fibrous, nonviable tissue Severity: Fat Layer Exposed Amount of bleeding with debridement: Mild Bleeding Controlled with: Compression and gauze Patient tolerated procedure: Patient tolerated procedure well Post-Debridement Measurements and Additional Note: Post-Debridement Measurements/Treatment - Nurse 1 - General Ulcer Assessment Start: 08/10/22 11:30 Freq: Status: Active Protocol: MICHAEL Activity Type Activity Date Activity User E-sign Co-sign Detail Recorded Client Recorded Date Recorded By Document 08/16/22 09:25 DL [id number] 08/16/22 09:31 DL Document 08/23/22 09:20 AK [id number] 08/23/22 09:21 AK Document 08/30/22 09:22 DL [id number] 08/30/22 09:26 DL 08/16/22 08/23/22 08/30/22 09:25 09:20 09:22 - Today's Visit Information Type of service Follow-up Visit Follow-up 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/[employer] (Physician/[employer] ) ) Arrival Mode Ambulatory Ambulatory Transfer Assistance None None Patient Identification Verified (Name & Yes Yes ) Patient Requires Transmission-Based No No Precautions Height and Weight Body Mass Index (BMI) 29.8 29.8 29.8 BMI Classification Overweight Overweight Overweight Vital Signs Temperature (97.8 F-99.1 F) 96.8 F L 96.1 F L 96.8 F L Temperature Source Temporal Temporal Temporal Pulse Rate (60-100) 85 80 82 Pulse Location Monitor Monitor Monitor Respiratory Rate (12-18) 18 18 Respiratory rate source Observation Observation Blood Pressure (90/60-120/80) 140/99 H 149/89 H 159/68 H Blood Pressure Mean 112 109 98 Source Monitor Monitor Monitor History Since Last Visit- (Skip if this is Patient's initial visit) Have you changed medications since your No No No last visit? Any new allergies or adverse reactions No No No Had a fall/change in ADL's that may No No No increase risk of falls Signs or symptoms of abuse and/or No No No neglect since last visit Have you been in the hospital since your No No No last visit? Has dressing in place as prescribed Yes Yes Yes Has compression in place as prescribed N/A Yes Has offloadiing in place as prescribed N/A N/A Yes Experienced any changes in pain level or No No No management Left Footwear Regular Shoe Right Footwear Regular Shoe Pain Scale: 0-10 Numeric Is Patient Pain Free? Yes Yes Yes WC - Nurse 1 - General Ulcer Measurement Start: 08/10/22 11:30 Freq: Status: Active Protocol: Activity Type Activity Date Activity User E-sign Co-sign Detail Recorded Client Recorded Date Recorded By Document 08/16/22 09:25 DL [id number] 08/16/22 09:31 DL Document 08/23/22 09:21 AK [id number] 08/23/22 09:28 AK Document 08/30/22 09:22 DL [id number] 08/30/22 09:26 DL 08/16/22 08/23/22 08/30/22 09:25 09:21 09:22 Wound Center Nurse 1 #11 R Groin -Combined with other wound No -Current Size (cm) - Length 2.7 3 2.5 -Current Size (cm) - Width 0.7 0.4 0.7 -Current Size (cm) - Depth 0.7 0.4 0.5 -Total Square Cm 1.89 1.2 1.75 -Photo Taken Yes Yes -Tunneling No -Undermining/Tunneling No -Circular Undermining No -Change in Wound Grade/Stage No -Exudate Amt Medium None Present Small -Exudate Type Serosanguineous Serosanguineous -Wound Margin Thickened & Distinct, Thickened Rolled Under Outline Attached -Granulation Amt Medium (34-66%) Medium (34-66%) Large (67-100%) -Granulation Quality [place] -Slough/Fibrin Yes -Necrosis Amt Medium (34-66%) Medium (34-66%) Small (1-33%) -Necrotic Tissue Type Adherent Slough Adherent Slough Adherent Slough -Structure Exposed N/A N/A N/A -Texture (Blanche-wound Skin Appearance) Scarring No Abnormality, Scarring Assessed -Moisture (Blanche-wound Skin Appearance) No Abnormality No Abnormality, No Abnormality Assessed -Color (Blanche-wound Skin Appearance) No Abnormality No Abnormality, No Abnormality Assessed -Temperature (Blanche-wound Skin No Abnormality No Abnormality No Abnormality Appearance) (Pt Warm) (Pt Warm) (Pt Warm) -Tenderness on Palpation (Blanche-wound No No No Skin Appearance) -Ulcer Cleansing Rinsed/ Rinsed/ Rinsed/ Irrigated with Irrigated with Irrigated with Saline Saline Saline -Foul Odor after Cleansing No No No -Anesthetic Used 4% Lidocaine 4% Lidocaine 4% Lidocaine Solution Solution Solution WC - Nurse 2 - General Ulcer CM Notes Start: 08/10/22 11:30 Freq: Status: Active Protocol: Activity Type Activity Date Activity User E-sign Co-sign Detail Recorded Client Recorded Date Recorded By Document 08/16/22 09:46 MW [id number] 08/16/22 09:50 MW Document 08/23/22 09:45 MW [id number] 08/23/22 09:49 MW Document 08/30/22 09:58 MW [id number] 08/30/22 10:04 MW 08/16/22 08/23/22 08/30/22 09:46 09:45 09:58 Wound Center Nurse 2 #11 R Groin -Time 09:46 09:45 09:59 -Correct Patient Yes Yes Yes -Correct Side, Site, Position Yes Yes Yes -Correct Procedure Yes Yes Yes -Procedure Performed Yes Yes Yes -Type of Procedure Debridement Debridement Debridement -Clinical Debridement Subcutaneous Subcutaneous Subcutaneous -Tissue Removed Subcutaneous Subcutaneous Subcutaneous -Post Debridement (cm) - Length 2.7 2.7 2.6 -Post Debridement (cm) - Width 0.7 0.8 0.8 -Post Debridement (cm) - Depth 0.7 0.4 0.4 -Total Square (Post) (cm) 1.89 2.16 2.08 -Area of Debridement (cm) - Length 2.7 2.7 2.6 -Area of Debridement (cm) - Width 0.7 0.8 0.8 -Total Square (Area) (cm) 1.89 2.16 2.08 -Tunneling No No No -Undermining/Tunneling No No No -Circular Undermining No No No -Wound/Ulcer Outcome Not Healed Not Healed Not Healed -Ulcer Cleansing Rinsed/ Rinsed/ Rinsed/ Irrigated with Irrigated with Irrigated with Saline Saline Saline -Foul Odor after Cleansing No No No -Bioengineered Tissue No No No -Bleeding Controlled with Pressure Pressure Pressure -Treatment Response Procedure Procedure Procedure Tolerated Well Tolerated Well Tolerated Well -Offloading No No No -Debridement - Subq, 1st 20sq cm Yes Yes Yes Pain Scale: 0-10 Numeric Is Patient Pain Free? Yes Yes Yes - Nurse 3 - General Ulcer D/C NN Start: 08/10/22 11:30 Freq: Status: Active Protocol: Activity Type Activity Date Activity User E-sign Co-sign Detail Recorded Client Recorded Date Recorded By Document 08/23/22 10:41 AK [id number] 08/23/22 10:41 AK Document 08/30/22 10:04 MW [id number] 08/30/22 10:05 MW 08/23/22 08/30/22 10:41 10:04 Wound Care Center Nurse 3 #11 R Groin -Ulcer Cleansing Rinsed/ Rinsed/ Irrigated with Irrigated with Saline Saline -Foul Odor after Cleansing No No -Negative Pressure Wound Therapy N/A N/A -Primary Dressing Applied C Hydrogel ($) -Other Dressing AMD c.hydrogel -Primary Dressing Covered/Secured with Dry Gauze, Secured with Secured with Tape Tape -Other Covering AMD antimicrobial dressing Treatment Response Procedure Tolerated Well Pain Scale: 0-10 Numeric Is Patient Pain Free? Yes Yes Teaching: Wound Center Dressing Your Wound -Person Taught Patient -Teaching Method Discussion, Demonstration -Response to teaching Verbalize understanding WC - Visit Discharge Discharge Condition Stable Stable Ambulatory Status Ambulatory Transportation Private Auto Private Auto Accompanied by self Medication Reconcilliation completed & Yes No provided to patient/care provider Clinical Summary of Care Provided Yes Yes Assessment/Plan Assessment/Plan (1) Soft tissue radionecrosis: CODE(S): L59.8 - Other specified disorders of the skin and subcutaneous tissue related to radiation; Y84.2 - Radiological procedure and radiotherapy as the cause of abnormal reaction of the patient, or of later complication, without mention of misadventure at the time of the procedure (2) Radiation injury: CODE(S): T66.XXXA - Radiation sickness, unspecified, initial encounter (3) History of melanoma: CODE(S): Z85.820 - Personal history of malignant melanoma of skin PLAN: Plan The patient's course of hyperbaric oxygen therapy has been completed. A total of 57 HBO therapy sessions were implemented. The final 3 sessions were eliminated closed at the patient's myringotomy tubes spontaneously extruded, and the patient was noted to develop ear pain during the course of her final hyperbaric oxygen therapy treatment. With regard to her right groin ulceration, we are to continue the use of a Get AMD Antimicrobial Foam dressing which is impregnated with PHMD, which will be used in combination with collagen hydrogel, and applied on a daily basis. The patient will return in 1 week for reassessment. Total time: 24 minutes
[2022-09-06 09:25] VITALS: TEMP 36.2; BMI 29.8
--- NOTE | 2022-09-06 13:56 | PCM.WC.HP ---
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 The patient was diagnosed with melanoma of the right calf in the 1969's. The melanoma was metastatic to lymph nodes. The patient underwent excision of her melanoma with lymphadenectomy in the right groin. She also underwent lengthy radiation treatments at the [facility] in [place], [place]. Melanoma recurred, and the patient was subsequently treated with monoclonal antibodies in 1984. However, due to the presence of severe radiation injury, persisting open wounds in the right thigh, MRSA infection, and severe radiation injury to the right femoral artery, the patient subsequently required right above-knee amputation in 2002. 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 Treatment included local ulcer care and hyperbaric oxygen therapy. She underwent a total of nearly 90 treatments of hyperbaric oxygen therapy. It is known that she tolerated the therapies well, and derived significant benefit. 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 She has also undergone several more sessions of hyperbaric oxygen therapy. She also received a series of 10 EpiFix allografts in the course of previous treatment. Each of the patient's prior courses of treatment in our facility have been protracted, with difficulties encountered in achieving complete healing. Her most recent course of treatment ended with successful healing and discharge in February 2021. The patient presented at this time with a recurrence of her right groin ulceration, again thought to be secondary to soft tissue radiation injury. The ulceration recurred spontaneously approximately 2-3 weeks prior to her presentation. The patient indicates that her health history has not changed since she was last treated in our facility. Progress of Wound: [facility] Medical History Bilateral cataracts Cancer Hemorrhoids Knee pain Radiation injury Home Medications famotidine 20 mg tablet 20 mg PO 06/20/17 [History Last Taken Unknown] pravastatin 20 mg tablet 20 mg PO DAILY 06/20/17 [History Last Taken Unknown] famotidine 40 mg tablet PO 90 days ##90 12/26/17 [History Last Taken Unknown] pravastatin 20 mg tablet PO 90 days ##90 12/26/17 [History Last Taken Unknown] Allergy/AdvReac Type Severity Reaction Status Date / Time No Known Allergies Allergy Verified 02/15/22 09:08 Family History Other Heart disease Hypertension Surgical History Hx of AKA (above knee amputation) Social History Smoking Status: Former smoker alcohol intake: current alcohol intake frequency: holidays/special occasions only Vital Signs Vital Signs Vital Signs: 09/06/22 09:25 Temperature 97.2 F L Temperature Source Temporal Weight Weight: 196 lb 1.696 oz Body Mass Index (BMI) 29.8 Physical Exam Const alert, oriented x3, no apparent distress and well nourished General Appearance: cooperative, comfortable, well kempt and well developed Orientation / Consciousness: awake, oriented to person, oriented to place and oriented to time HEENT normocephalic, head/scalp atraumatic and hearing grossly normal bilaterally HEENT Narrative: Able to visualize her ear tubes bilaterally. Right tube appears to be shifting out of TM. Head and Scalp: normal to inspection, normocephalic and atraumatic Face and Sinus: normal facial exam External Ear: external ears normal Eyes EOMs intact bilaterally General Eye: normal appearance of both eyes Resp normal respiratory effort, normal air movement, no retractions and no use of accessory muscles Effort and Inspection: able to speak in complete sentences Cardio regular rate and regular rhythm Skin Wound Narrative: A well-healed right above-knee amputation stump is noted. An ulceration persists in the patient's right groin. There is a moderate amount of bioburden and nonviable tissue present. There is no sign of infection or cellulitis. Dimensions are documented elsewhere. There has been little change in the appearance of the ulceration in recent weeks. Neuro oriented x3, CN's II-XII intact bilaterally, moves all extremities and no focal motor deficits Sensorium / Orientation: awake, alert, oriented to person, oriented to place and oriented to time Psych affect normal Appearance: grossly normal, appropriate and well kempt Attitude: calm and engaged Activity / Motor Behavior: appropriate eye contact Speech: normal speech Thought Process: normal thought process Attention / Concentration: attention grossly intact Insight: insight good Debridement Note Debridement Note Wound debrided: Right groin ulceration Laterality: Right Type of Debridement: Excisional debridement Anesthesia Used: 5% Lidocaine Gel Depth: Down to and including healthy tissue and in the subcutaneous layer Percentage of wound debrided: 100 Instrument Used: 3mm curette Tissue Removed: Bioburden and fibrous, nonviable tissue Severity: Fat Layer Exposed Amount of bleeding with debridement: Mild Bleeding Controlled with: Compression and gauze Patient tolerated procedure: Patient tolerated procedure well Post-Debridement Measurements and Additional Note: Post-Debridement Measurements/Treatment - Nurse 1 - General Ulcer Assessment Start: 08/10/22 11:30 Freq: Status: Active Protocol: MICHAEL Activity Type Activity Date Activity User E-sign Co-sign Detail Recorded Client Recorded Date Recorded By Document 08/16/22 09:25 DL [id number] 08/16/22 09:31 DL Document 08/23/22 09:20 AK [id number] 08/23/22 09:21 AK Document 08/30/22 09:22 DL [id number] 08/30/22 09:26 DL Document 09/06/22 09:25 AK [id number] 09/06/22 09:28 AK 08/16/22 08/23/22 08/30/22 09:25 09:20 09:22 - Today's Visit Information Type of service Follow-up Visit Follow-up 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/REPRESENTATIVE PHLEBOTOMY SERVICES (Physician/REPRESENTATIVE PHLEBOTOMY SERVICES ) ) Arrival Mode Ambulatory Ambulatory Transfer Assistance None None Patient Identification Verified (Name & Yes Yes ) Patient Requires Transmission-Based No No Precautions Safety Precautions Height and Weight Body Mass Index (BMI) 29.8 29.8 29.8 BMI Classification Overweight Overweight Overweight Vital Signs Temperature (97.8 F-99.1 F) 96.8 F L 96.1 F L 96.8 F L Temperature Source Temporal Temporal Temporal Pulse Rate (60-100) 85 80 82 Pulse Location Monitor Monitor Monitor Respiratory Rate (12-18) 18 18 Respiratory rate source Observation Observation Blood Pressure (90/60-120/80) 140/99 H 149/89 H 159/68 H Blood Pressure Mean 112 109 98 Source Monitor Monitor Monitor History Since Last Visit- (Skip if this is Patient's initial visit) Have you changed medications since your No No No last visit? Any new allergies or adverse reactions No No No Had a fall/change in ADL's that may No No No increase risk of falls Signs or symptoms of abuse and/or No No No neglect since last visit Have you been in the hospital since your No No No last visit? Has dressing in place as prescribed Yes Yes Yes Has compression in place as prescribed N/A Yes Has offloadiing in place as prescribed N/A N/A Yes Experienced any changes in pain level or No No No management Left Footwear Regular Shoe Right Footwear Regular Shoe Pain Scale: 0-10 Numeric Is Patient Pain Free? Yes Yes Yes 09/06/22 09:25 WC - Today's Visit Information Type of service Follow-up 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/REPRESENTATIVE PHLEBOTOMY SERVICES ) Arrival Mode Ambulatory Transfer Assistance Patient Identification Verified (Name & Yes ) Patient Requires Transmission-Based No Precautions Safety Precautions NA Height and Weight Body Mass Index (BMI) 29.8 BMI Classification Overweight Vital Signs Temperature (97.8 F-99.1 F) 97.2 F L Temperature Source Temporal Pulse Rate (60-100) Pulse Location Respiratory Rate (12-18) Respiratory rate source Blood Pressure (90/60-120/80) Blood Pressure Mean Source History Since Last Visit- (Skip if this is Patient's initial visit) Have you changed medications since your No last visit? Any new allergies or adverse reactions No Had a fall/change in ADL's that may No increase risk of falls Signs or symptoms of abuse and/or No neglect since last visit Have you been in the hospital since your No last visit? Has dressing in place as prescribed Yes Has compression in place as prescribed N/A Has offloadiing in place as prescribed N/A Experienced any changes in pain level or No management Left Footwear Regular Shoe Right Footwear Regular Shoe Pain Scale: 0-10 Numeric Is Patient Pain Free? Yes WC - Nurse 1 - General Ulcer Measurement Start: 08/10/22 11:30 Freq: Status: Active Protocol: Activity Type Activity Date Activity User E-sign Co-sign Detail Recorded Client Recorded Date Recorded By Document 08/16/22 09:25 DL [id number] 08/16/22 09:31 DL Document 08/23/22 09:21 AK [id number] 08/23/22 09:28 AK Document 08/30/22 09:22 DL [id number] 08/30/22 09:26 DL Document 09/06/22 09:25 VA [id number] 09/06/22 09:28 AK 08/16/22 08/23/22 08/30/22 09:25 09:21 09:22 Wound Center Nurse 1 #11 R Groin -Combined with other wound No -Current Size (cm) - Length 2.7 3 2.5 -Current Size (cm) - Width 0.7 0.4 0.7 -Current Size (cm) - Depth 0.7 0.4 0.5 -Total Square Cm 1.89 1.2 1.75 -Photo Taken Yes Yes -Tunneling No -Undermining/Tunneling No -Circular Undermining No -Change in Wound Grade/Stage No -Exudate Amt Medium None Present Small -Exudate Type Serosanguineous Serosanguineous -Wound Margin Thickened & Distinct, Thickened Rolled Under Outline Attached -Granulation Amt Medium (34-66%) Medium (34-66%) Large (67-100%) -Granulation Quality Elizabeth Elizabeth Elizabeth -Slough/Fibrin Yes -Necrosis Amt Medium (34-66%) Medium (34-66%) Small (1-33%) -Necrotic Tissue Type Adherent Slough Adherent Slough Adherent Slough -Structure Exposed N/A N/A N/A -Texture (Blanche-wound Skin Appearance) Scarring No Abnormality, Scarring Assessed -Moisture (Blanche-wound Skin Appearance) No Abnormality No Abnormality, No Abnormality Assessed -Color (Blanche-wound Skin Appearance) No Abnormality No Abnormality, No Abnormality Assessed -Temperature (Blanche-wound Skin No Abnormality No Abnormality No Abnormality Appearance) (Pt Warm) (Pt Warm) (Pt Warm) -Tenderness on Palpation (Blanche-wound No No No Skin Appearance) -Ulcer Cleansing Rinsed/ Rinsed/ Rinsed/ Irrigated with Irrigated with Irrigated with Saline Saline Saline -Foul Odor after Cleansing No No No -Anesthetic Used 4% Lidocaine 4% Lidocaine 4% Lidocaine Solution Solution Solution 09/06/22 09:25 Wound Center Nurse 1 #11 R Groin -Combined with other wound No -Current Size (cm) - Length 2.4 -Current Size (cm) - Width 0.5 -Current Size (cm) - Depth 0.4 -Total Square Cm 1.20 -Photo Taken Yes -Tunneling No -Undermining/Tunneling No -Circular Undermining No -Change in Wound Grade/Stage No -Exudate Amt Medium -Exudate Type Yellow/Green -Wound Margin Distinct, Outline Attached -Granulation Amt Medium (34-66%) -Granulation Quality Elizabeth -Slough/Fibrin Yes -Necrosis Amt Small (1-33%) -Necrotic Tissue Type Adherent Slough -Structure Exposed N/A -Texture (Blanche-wound Skin Appearance) No Abnormality, Assessed -Moisture (Blanceh-wound Skin Appearance) No Abnormality, Assessed -Color (Blanche-wound Skin Appearance) No Abnormality, Assessed -Temperature (Blanche-wound Skin No Abnormality Appearance) (Pt Warm) -Tenderness on Palpation (Blanche-wound No Skin Appearance) -Ulcer Cleansing Rinsed/ Irrigated with Saline -Foul Odor after Cleansing No -Anesthetic Used 4% Lidocaine Solution WC - Nurse 2 - General Ulcer CM Notes Start: 08/10/22 11:30 Freq: Status: Active Protocol: Activity Type Activity Date Activity User E-sign Co-sign Detail Recorded Client Recorded Date Recorded By Document 08/16/22 09:46 MW [id number] 08/16/22 09:50 MW Document 08/23/22 09:45 MW [id number] 08/23/22 09:49 MW Document 08/30/22 09:58 MW [id number] 08/30/22 10:04 MW Document 09/06/22 09:33 MW [id number] 09/06/22 09:37 MW 08/16/22 08/23/22 08/30/22 09:46 09:45 09:58 Wound Center Nurse 2 #11 R Groin -Time 09:46 09:45 09:59 -Correct Patient Yes Yes Yes -Correct Side, Site, Position Yes Yes Yes -Correct Procedure Yes Yes Yes -Procedure Performed Yes Yes Yes -Type of Procedure Debridement Debridement Debridement -Clinical Debridement Subcutaneous Subcutaneous Subcutaneous -Tissue Removed Subcutaneous Subcutaneous Subcutaneous -Post Debridement (cm) - Length 2.7 2.7 2.6 -Post Debridement (cm) - Width 0.7 0.8 0.8 -Post Debridement (cm) - Depth 0.7 0.4 0.4 -Total Square (Post) (cm) 1.89 2.16 2.08 -Area of Debridement (cm) - Length 2.7 2.7 2.6 -Area of Debridement (cm) - Width 0.7 0.8 0.8 -Total Square (Area) (cm) 1.89 2.16 2.08 -Tunneling No No No -Undermining/Tunneling No No No -Circular Undermining No No No -Wound/Ulcer Outcome Not Healed Not Healed Not Healed -Ulcer Cleansing Rinsed/ Rinsed/ Rinsed/ Irrigated with Irrigated with Irrigated with Saline Saline Saline -Foul Odor after Cleansing No No No -Bioengineered Tissue No No No -Bleeding Controlled with Pressure Pressure Pressure -Treatment Response Procedure Procedure Procedure Tolerated Well Tolerated Well Tolerated Well -Offloading No No No -Debridement - Subq, 1st 20sq cm Yes Yes Yes Pain Scale: 0-10 Numeric Is Patient Pain Free? Yes Yes Yes 09/06/22 09:33 Wound Center Nurse 2 #11 R Groin -Time 09:34 -Correct Patient Yes -Correct Side, Site, Position Yes -Correct Procedure Yes -Procedure Performed Yes -Type of Procedure Debridement -Clinical Debridement Subcutaneous -Tissue Removed Subcutaneous -Post Debridement (cm) - Length 2.7 -Post Debridement (cm) - Width 0.6 -Post Debridement (cm) - Depth 0.4 -Total Square (Post) (cm) 1.62 -Area of Debridement (cm) - Length 2.7 -Area of Debridement (cm) - Width 0.6 -Total Square (Area) (cm) 1.62 -Tunneling No -Undermining/Tunneling No -Circular Undermining No -Wound/Ulcer Outcome Not Healed -Ulcer Cleansing Rinsed/ Irrigated with Saline -Foul Odor after Cleansing No -Bioengineered Tissue No -Bleeding Controlled with Pressure -Treatment Response Procedure Tolerated Well -Offloading No -Debridement - Subq, 1st 20sq cm Yes Pain Scale: 0-10 Numeric Is Patient Pain Free? Yes - Nurse 3 - General Ulcer D/C NN Start: 08/10/22 11:30 Freq: Status: Active Protocol: Activity Type Activity Date Activity User E-sign Co-sign Detail Recorded Client Recorded Date Recorded By Document 08/23/22 10:41 AK [id number] 08/23/22 10:41 AK Document 08/30/22 10:04 MW [id number] 08/30/22 10:05 MW Document 09/06/22 09:38 MW [id number] 09/06/22 09:39 MW 08/23/22 08/30/22 09/06/22 10:41 10:04 09:38 Wound Care Center Nurse 3 #11 R Groin -Ulcer Cleansing Rinsed/ Rinsed/ Rinsed/ Irrigated with Irrigated with Irrigated with Saline Saline Saline -Foul Odor after Cleansing No No No -Negative Pressure Wound Therapy N/A N/A N/A -Primary Dressing Applied C Hydrogel ($) -Other Dressing AMD c.hydrogel c.hydrogel -Primary Dressing Covered/Secured with Dry Gauze, Secured with Secured with Secured with Tape Tape Tape -Other Covering AMD AMD antimicrobial antimicrobial dressing foam Treatment Response Procedure Procedure Tolerated Well Tolerated Well Pain Scale: 0-10 Numeric Is Patient Pain Free? Yes Yes Yes Teaching: Wound Center Dressing Your Wound -Person Taught Patient Patient -Teaching Method Discussion, Discussion, Demonstration Demonstration -Response to teaching Verbalize Verbalize understanding understanding WC - Visit Discharge Discharge Condition Stable Stable Stable Ambulatory Status Ambulatory Ambulatory Transportation Private Auto Private Auto Private Auto Accompanied by self self Medication Reconcilliation completed & Yes No No provided to patient/care provider Clinical Summary of Care Provided Yes Yes Yes Assessment/Plan Assessment/Plan (1) Soft tissue radionecrosis: CODE(S): L59.8 - Other specified disorders of the skin and subcutaneous tissue related to radiation; Y84.2 - Radiological procedure and radiotherapy as the cause of abnormal reaction of the patient, or of later complication, without mention of misadventure at the time of the procedure (2) Radiation injury: CODE(S): T66.XXXA - Radiation sickness, unspecified, initial encounter (3) History of melanoma: CODE(S): Z85.820 - Personal history of malignant melanoma of skin PLAN: Plan The patient's course of hyperbaric oxygen therapy has been completed. A total of 57 HBO therapy sessions were implemented. The final 3 sessions were eliminated closed at the patient's myringotomy tubes spontaneously extruded, and the patient was noted to develop ear pain during the course of her final hyperbaric oxygen therapy treatment. With regard to her right groin ulceration, we are to continue the use of a Get AMD Antimicrobial Foam dressing which is impregnated with PHMB, which will be used in combination with collagen hydrogel, and applied on a daily basis. The patient will return in 1 week for reassessment. We are to seek preauthorization for the use of EpiFix allograft. Total time: 25 minutes
== END 2022-09-06 23:59 | disposition home or self-care (01) ==
LOC: WC 09:15
PROVIDERS: PCP Family Medicine; Visit Provider Surgery
DX: L59.8 Other specified disorders of the skin and subcutaneous tissue related to radiation (principal); Z89.619 Acquired absence of unspecified leg above knee; L97.112 Non-pressure chronic ulcer of right thigh with fat layer exposed; Z87.891 Personal history of nicotine dependence; H92.01 Otalgia, right ear; Y84.2 Radiological procedure and radiotherapy as the cause of abnormal reaction of the patient, or of later complication, without mention of misadventure at the time of the procedure; T66.XXXA Radiation sickness, unspecified, initial encounter; Z85.820 Personal history of malignant melanoma of skin
CPT/HCPCS: 11042; 99183; G0277

== ENCOUNTER 2022-09-27 09:15 | Outpatient (RCR) | payer MEDICARE, OTHER, SELFPAY ==
[2022-09-07 00:17] VITALS: BP 159/68; PULSE 82; RESP 18; TEMP 36.2; BMI 29.8
[2022-09-13 09:19] VITALS: BP 151/78; PULSE 84; RESP 18; TEMP 35.9; BMI 29.8
--- NOTE | 2022-09-13 12:46 | HP.PCM_ITS ---
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 The patient was diagnosed with melanoma of the right calf in the 1969's. 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 The patient underwent excision of her melanoma with lymphadenectomy in the right groin. She also underwent lengthy radiation treatments at the [facility] in [place], [place]. Melanoma recurred, and the patient was subsequently treated with monoclonal antibodies in 1984. However, due to the presence of severe radiation injury, persisting open wounds in the right thigh, MRSA infection, and severe radiation injury to the right femoral artery, the patient subsequently required right above-knee amputation in 2002. 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 Treatment included local ulcer care and hyperbaric oxygen therapy. She underwent a total of nearly 90 treatments of hyperbaric oxygen therapy. It is known that she tolerated the therapies well, and derived significant benefit. 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 She has also undergone several more sessions of hyperbaric oxygen therapy. She also received a series of 10 EpiFix allografts in the course of previous treatment. Each of the patient's prior courses of treatment in our facility have been protracted, with difficulties encountered in achieving complete healing. Her most recent course of treatment ended with successful healing and discharge in February 2021. The patient presented at this time with a recurrence of her right groin ulceration, again thought to be secondary to soft tissue radiation injury. The ulceration recurred spontaneously approximately 2-3 weeks prior to her presentation. The patient indicates that her health history has not changed since she was last treated in our facility. [facility] Medical History Bilateral cataracts Cancer Hemorrhoids Knee pain Radiation injury Home Medications famotidine 20 mg tablet 20 mg PO 06/20/17 [History Last Taken Unknown] pravastatin 20 mg tablet 20 mg PO DAILY 06/20/17 [History Last Taken Unknown] famotidine 40 mg tablet PO 90 days ##90 12/26/17 [History Last Taken Unknown] pravastatin 20 mg tablet PO 90 days ##90 12/26/17 [History Last Taken Unknown] Allergy/AdvReac Type Severity Reaction Status Date / Time No Known Allergies Allergy Verified 02/15/22 09:08 Family History Other Heart disease Hypertension Surgical History Hx of AKA (above knee amputation) Social History Smoking Status: Former smoker alcohol intake: current alcohol intake frequency: holidays/special occasions only Vital Signs Vital Signs Vital Signs: 09/13/22 09:19 Temperature 96.6 F L Temperature Source Temporal Pulse Rate 84 Respiratory Rate 18 Blood Pressure 151/78 H Blood Pressure Mean 102 Blood Pressure Source Monitor Weight Weight: 196 lb 1.696 oz Body Mass Index (BMI) 29.8 Physical Exam Const alert, oriented x3, no apparent distress and well nourished General Appearance: cooperative, comfortable, well kempt and well developed Orientation / Consciousness: awake, oriented to person, oriented to place and oriented to time HEENT normocephalic, head/scalp atraumatic and hearing grossly normal bilaterally HEENT Narrative: Able to visualize her ear tubes bilaterally. Right tube appears to be shifting out of TM. Head and Scalp: normal to inspection, normocephalic and atraumatic Face and Sinus: normal facial exam External Ear: external ears normal Eyes EOMs intact bilaterally General Eye: normal appearance of both eyes Resp normal respiratory effort, normal air movement, no retractions and no use of accessory muscles Effort and Inspection: able to speak in complete sentences Cardio regular rate and regular rhythm Skin Wound Narrative: A well-healed right above-knee amputation stump is noted. An ulceration persists in the patient's right groin. There is a moderate amount of bioburden and nonviable tissue present. There is no sign of infection or cellulitis. Dimensions are documented elsewhere. There has been little change in the appearance of the ulceration in recent weeks. Neuro oriented x3, CN's II-XII intact bilaterally, moves all extremities and no focal motor deficits Sensorium / Orientation: awake, alert, oriented to person, oriented to place and oriented to time Psych affect normal Appearance: grossly normal, appropriate and well kempt Attitude: calm and engaged Activity / Motor Behavior: appropriate eye contact Speech: normal speech Thought Process: normal thought process Attention / Concentration: attention grossly intact Insight: insight good Debridement Note Debridement Note Wound debrided: Right groin ulceration Laterality: Right Type of Debridement: Excisional debridement Anesthesia Used: 5% Lidocaine Gel Depth: Down to and including healthy tissue and in the subcutaneous layer Percentage of wound debrided: 100 Instrument Used: 3mm curette Tissue Removed: Bioburden and fibrous, nonviable tissue Severity: Fat Layer Exposed Amount of bleeding with debridement: Mild Bleeding Controlled with: Compression and gauze Patient tolerated procedure: Patient tolerated procedure well Post-Debridement Measurements and Additional Note: Post-Debridement Measurements/Treatment WC - Nurse 1 - General Ulcer Assessment Start: 09/13/22 09:19 Freq: Status: Active Protocol: MICHAEL Activity Type Activity Date Activity User E-sign Co-sign Detail Recorded Client Recorded Date Recorded By Document 09/13/22 09:19 DL [id number] 09/13/22 09:26 DL 09/13/22 09:19 WC - Today's Visit Information Type of service Follow-up 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/GERENTOLOGICAL PHYSIOTHERAPIST ) Arrival Mode Ambulatory Transfer Assistance None Patient Identification Verified (Name & Yes ) Patient Requires Transmission-Based No Precautions Height and Weight Body Mass Index (BMI) 29.8 BMI Classification Overweight Vital Signs Temperature (97.8 F-99.1 F) 96.6 F L Temperature Source Temporal Pulse Rate (60-100) 84 Pulse Location Monitor Respiratory Rate (12-18) 18 Respiratory rate source Observation Blood Pressure (90/60-120/80) 151/78 H Blood Pressure Mean 102 Source Monitor History Since Last Visit- (Skip if this is Patient's initial visit) Have you changed medications since your No last visit? Any new allergies or adverse reactions No Had a fall/change in ADL's that may No increase risk of falls Signs or symptoms of abuse and/or No neglect since last visit Have you been in the hospital since your No last visit? Has dressing in place as prescribed Yes Has compression in place as prescribed N/A Has offloadiing in place as prescribed Yes Experienced any changes in pain level or No management Pain Scale: 0-10 Numeric Is Patient Pain Free? Yes - Nurse 1 - General Ulcer Measurement Start: 09/13/22 09:19 Freq: Status: Active Protocol: Activity Type Activity Date Activity User E-sign Co-sign Detail Recorded Client Recorded Date Recorded By Document 09/13/22 09:19 DL [id number] 09/13/22 09:26 DL 09/13/22 09:19 Wound Center Nurse 1 #11 R Groin -Current Size (cm) - Length 2.2 -Current Size (cm) - Width 0.6 -Current Size (cm) - Depth 0.5 -Total Square Cm 1.32 -Date of Last Picture (Recall this 09/13/22 field) -Photo Taken Yes -Tunneling No -Undermining/Tunneling No -Circular Undermining No -Change in Wound Grade/Stage No -Exudate Amt Medium -Exudate Type Serosanguineous -Wound Margin Distinct, Outline Attached -Granulation Amt Large (67-100%) -Granulation Quality [place] -Slough/Fibrin Yes -Necrosis Amt Medium (34-66%) -Necrotic Tissue Type Adherent Slough -Structure Exposed N/A -Texture (Blanche-wound Skin Appearance) Assessed, Scarring -Moisture (Blanche-wound Skin Appearance) No Abnormality, Assessed -Color (Blanche-wound Skin Appearance) No Abnormality, Assessed -Temperature (Blanche-wound Skin No Abnormality Appearance) (Pt Warm) -Tenderness on Palpation (Blanche-wound No Skin Appearance) -Ulcer Cleansing Rinsed/ Irrigated with Saline -Foul Odor after Cleansing No -Anesthetic Used 4% Lidocaine Solution WC - Nurse 2 - General Ulcer CM Notes Start: 09/13/22 09:19 Freq: Status: Active Protocol: Activity Type Activity Date Activity User E-sign Co-sign Detail Recorded Client Recorded Date Recorded By Document 09/13/22 11:29 PL [id number] 09/13/22 11:30 PL 09/13/22 11:29 Wound Center Nurse 2 -Time 09:35 -Correct Patient Yes -Correct Side, Site, Position Yes -Correct Procedure Yes -Procedure Performed Yes -Type of Procedure Debridement -Clinical Debridement Subcutaneous -Tissue Removed Subcutaneous -Post Debridement (cm) - Length 2.2 -Post Debridement (cm) - Width 0.6 -Post Debridement (cm) - Depth 0.5 -Total Square (Post) (cm) 1.32 -Area of Debridement (cm) - Length 2.2 -Area of Debridement (cm) - Width 0.6 -Total Square (Area) (cm) 1.32 -Tunneling No -Undermining/Tunneling No -Circular Undermining No -Wound/Ulcer Outcome Not Healed -Ulcer Cleansing Rinsed/ Irrigated with Saline -Foul Odor after Cleansing No -Bioengineered Tissue No -Bleeding Controlled with Pressure -Treatment Response Procedure Tolerated Well -Debridement - Subq, 1st 20sq cm Yes Pain Scale: 0-10 Numeric Is Patient Pain Free? Yes WC - Nurse 3 - General Ulcer D/C NN Start: 09/13/22 09:19 Freq: Status: Active Protocol: Activity Type Activity Date Activity User E-sign Co-sign Detail Recorded Client Recorded Date Recorded By Document 09/13/22 11:02 HAI [id number] 09/13/22 11:03 HAI 09/13/22 11:02 Wound Care Center Nurse 3 #11 R Groin -Ulcer Cleansing Rinsed/ Irrigated with Saline -Foul Odor after Cleansing No -Negative Pressure Wound Therapy N/A -Other Dressing hydrogel and AMD -Primary Dressing Covered/Secured with Dry Gauze, Secured with Tape Pain Scale: 0-10 Numeric Is Patient Pain Free? Yes WC - Visit Discharge Discharge Condition Stable Ambulatory Status Ambulatory Transportation Private Auto Medication Reconcilliation completed & Yes provided to patient/care provider Clinical Summary of Care Provided Yes Assessment/Plan Assessment/Plan (1) Soft tissue radionecrosis: CODE(S): L59.8 - Other specified disorders of the skin and subcutaneous tissue related to radiation; Y84.2 - Radiological procedure and radiotherapy as the cause of abnormal reaction of the patient, or of later complication, without mention of misadventure at the time of the procedure (2) Radiation injury: CODE(S): T66.XXXA - Radiation sickness, unspecified, initial encounter (3) History of melanoma: CODE(S): Z85.820 - Personal history of malignant melanoma of skin PLAN: Plan The patient's course of hyperbaric oxygen therapy has been completed. A total of 57 HBO therapy sessions were implemented. The final 3 sessions were eliminated closed at the patient's myringotomy tubes spontaneously extruded, and the patient was noted to develop ear pain during the course of her final hyperbaric oxygen therapy treatment. With regard to her right groin ulceration, we are to continue the use of a Get AMD Antimicrobial Foam dressing which is impregnated with PHMB, which will be used in combination with collagen hydrogel, and applied on a daily basis. The patient will return in 1 week for reassessment. We are to seek preauthorization for the use of EpiFix allograft. Total time: 24 minutes
[2022-09-27 09:23] VITALS: BP 163/88; PULSE 88; TEMP 36.2; BMI 29.8
--- NOTE | 2022-09-27 12:42 | HP.PCM_ITS ---
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 The patient was diagnosed with melanoma of the right calf in the 1969's. The melanoma was metastatic to lymph nodes. The patient underwent excision of her melanoma with lymphadenectomy in the right groin. She also underwent lengthy radiation treatments at the [facility] in [place], [place]. Melanoma recurred, and the patient was subsequently treated with monoclonal antibodies in 1984. However, due to the presence of severe radiation injury, persisting open wounds in the right thigh, MRSA infection, and severe radiation injury to the right femoral artery, the patient subsequently required right above-knee amputation in 2002. 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 Treatment included local ulcer care and hyperbaric oxygen therapy. She underwent a total of nearly 90 treatments of hyperbaric oxygen therapy. It is known that she tolerated the therapies well, and derived significant benefit. 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 She has also undergone several more sessions of hyperbaric oxygen therapy. She also received a series of 10 EpiFix allografts in the course of previous treatment. Each of the patient's prior courses of treatment in our facility have been protracted, with difficulties encountered in achieving complete healing. Her most recent course of treatment ended with successful healing and discharge in February 2021. The patient presented at this time with a recurrence of her right groin ulceration, again thought to be secondary to soft tissue radiation injury. The ulceration recurred spontaneously approximately 2-3 weeks prior to her presentation. The patient indicates that her health history has not changed since she was last treated in our facility. [facility] Medical History Bilateral cataracts Cancer Hemorrhoids Knee pain Radiation injury Home Medications famotidine 20 mg tablet 20 mg PO 06/20/17 [History Last Taken Unknown] pravastatin 20 mg tablet 20 mg PO DAILY 06/20/17 [History Last Taken Unknown] famotidine 40 mg tablet PO 90 days ##90 12/26/17 [History Last Taken Unknown] pravastatin 20 mg tablet PO 90 days ##90 12/26/17 [History Last Taken Unknown] Allergy/AdvReac Type Severity Reaction Status Date / Time No Known Allergies Allergy Verified 02/15/22 09:08 Family History Other Heart disease Hypertension Surgical History Hx of AKA (above knee amputation) Social History Smoking Status: Former smoker alcohol intake: current alcohol intake frequency: holidays/special occasions only Vital Signs Vital Signs Vital Signs: 09/27/22 09:23 Temperature 97.1 F L Temperature Source Temporal Pulse Rate 88 Blood Pressure 163/88 H Blood Pressure Mean 113 Blood Pressure Source Monitor Weight Weight: 196 lb 1.696 oz Body Mass Index (BMI) 29.8 Physical Exam Const alert, oriented x3, no apparent distress and well nourished General Appearance: cooperative, comfortable, well kempt and well developed Orientation / Consciousness: awake, oriented to person, oriented to place and oriented to time HEENT normocephalic, head/scalp atraumatic and hearing grossly normal bilaterally HEENT Narrative: Able to visualize her ear tubes bilaterally. Right tube appears to be shifting out of TM. Head and Scalp: normal to inspection, normocephalic and atraumatic Face and Sinus: normal facial exam External Ear: external ears normal Eyes EOMs intact bilaterally General Eye: normal appearance of both eyes Resp normal respiratory effort, normal air movement, no retractions and no use of accessory muscles Effort and Inspection: able to speak in complete sentences Cardio regular rate and regular rhythm Skin Wound Narrative: A well-healed right above-knee amputation stump is noted. An ulceration persists in the patient's right groin. There is a moderate amount of bioburden and nonviable tissue present. There is no sign of infection or cellulitis. Dimensions are documented elsewhere. There has been little change in the appearance of the ulceration in recent weeks. Neuro oriented x3, CN's II-XII intact bilaterally, moves all extremities and no focal motor deficits Sensorium / Orientation: awake, alert, oriented to person, oriented to place and oriented to time Psych affect normal Appearance: grossly normal, appropriate and well kempt Attitude: calm and engaged Activity / Motor Behavior: appropriate eye contact Speech: normal speech Thought Process: normal thought process Attention / Concentration: attention grossly intact Insight: insight good Debridement Note Debridement Note Wound debrided: Right groin ulceration Laterality: Right Type of Debridement: Excisional debridement Anesthesia Used: 5% Lidocaine Gel Depth: Down to and including healthy tissue and in the subcutaneous layer Percentage of wound debrided: 100 Instrument Used: 3mm curette Tissue Removed: Bioburden and fibrous, nonviable tissue Severity: Fat Layer Exposed Amount of bleeding with debridement: Mild Bleeding Controlled with: Compression and gauze Patient tolerated procedure: Patient tolerated procedure well Post-Debridement Measurements and Additional Note: Post-Debridement Measurements/Treatment - Nurse 1 - General Ulcer Assessment Start: 09/13/22 09:19 Freq: Status: Active Protocol: MICHAEL Activity Type Activity Date Activity User E-sign Co-sign Detail Recorded Client Recorded Date Recorded By Document 09/13/22 09:19 DL [id number] 09/13/22 09:26 DL Document 09/27/22 09:23 AK [id number] 09/27/22 09:25 AK 09/13/22 09/27/22 09:19 09:23 - Today's Visit Information Type of service Follow-up Visit Follow-up 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/EDUCATION ANALYST (Physician/EDUCATION ANALYST ) ) Arrival Mode Ambulatory Ambulatory Transfer Assistance None Patient Identification Verified (Name & Yes Yes ) Patient Requires Transmission-Based No No Precautions Height and Weight Body Mass Index (BMI) 29.8 29.8 BMI Classification Overweight Overweight Vital Signs Temperature (97.8 F-99.1 F) 96.6 F L 97.1 F L Temperature Source Temporal Temporal Pulse Rate (60-100) 84 88 Pulse Location Monitor Monitor Respiratory Rate (12-18) 18 Respiratory rate source Observation Blood Pressure (90/60-120/80) 151/78 H 163/88 H Blood Pressure Mean 102 113 Source Monitor Monitor History Since Last Visit- (Skip if this is Patient's initial visit) Have you changed medications since your No No last visit? Any new allergies or adverse reactions No No Had a fall/change in ADL's that may No No increase risk of falls Signs or symptoms of abuse and/or No No neglect since last visit Have you been in the hospital since your No No last visit? Has dressing in place as prescribed Yes Yes Has compression in place as prescribed N/A N/A Has offloadiing in place as prescribed Yes N/A Experienced any changes in pain level or No No management Left Footwear Regular Shoe Right Footwear Regular Shoe Pain Scale: 0-10 Numeric Is Patient Pain Free? Yes Yes WC - Nurse 1 - General Ulcer Measurement Start: 09/13/22 09:19 Freq: Status: Active Protocol: Activity Type Activity Date Activity User E-sign Co-sign Detail Recorded Client Recorded Date Recorded By Document 09/13/22 09:19 DL [id number] 09/13/22 09:26 DL Document 09/27/22 09:23 AK [id number] 09/27/22 09:25 AK 09/13/22 09/27/22 09:19 09:23 Wound Center Nurse 1 #11 R Groin -Combined with other wound No -Current Size (cm) - Length 2.2 0.5 -Current Size (cm) - Width 0.6 2.5 -Current Size (cm) - Depth 0.5 0.4 -Total Square Cm 1.32 1.25 -Date of Last Picture (Recall this 09/13/22 field) -Photo Taken Yes Yes -Tunneling No No -Undermining/Tunneling No No -Circular Undermining No No -Change in Wound Grade/Stage No No -Exudate Amt Medium None Present -Exudate Type Serosanguineous -Wound Margin Distinct, Distinct, Outline Outline Attached Attached -Granulation Amt Large (67-100%) Large (67-100%) -Granulation Quality [employer] Pale -Slough/Fibrin Yes Yes -Necrosis Amt Medium (34-66%) Small (1-33%) -Necrotic Tissue Type Adherent Slough Adherent Slough -Structure Exposed N/A N/A -Texture (Blanche-wound Skin Appearance) Assessed, Assessed, Scarring Scarring -Moisture (Blanche-wound Skin Appearance) No Abnormality, No Abnormality, Assessed Assessed -Color (Blanche-wound Skin Appearance) No Abnormality, No Abnormality, Assessed Assessed -Temperature (Blanche-wound Skin No Abnormality No Abnormality Appearance) (Pt Warm) (Pt Warm) -Tenderness on Palpation (Blanche-wound No No Skin Appearance) -Ulcer Cleansing Rinsed/ Rinsed/ Irrigated with Irrigated with Saline Saline -Foul Odor after Cleansing No No -Anesthetic Used 4% Lidocaine 4% Lidocaine Solution Solution - Nurse 2 - General Ulcer CM Notes Start: 09/13/22 09:19 Freq: Status: Active Protocol: Activity Type Activity Date Activity User E-sign Co-sign Detail Recorded Client Recorded Date Recorded By Document 09/13/22 11:29 PL [id number] 09/13/22 11:30 PL Document 09/27/22 09:40 MW [id number] 09/27/22 09:47 MW 09/13/22 09/27/22 11:29 09:40 Wound Center Nurse 2 #11 R Groin -Time 09:35 09:41 -Correct Patient Yes Yes -Correct Side, Site, Position Yes Yes -Correct Procedure Yes Yes -Procedure Performed Yes Yes -Type of Procedure Debridement Debridement -Clinical Debridement Subcutaneous Subcutaneous -Tissue Removed Subcutaneous Subcutaneous -Post Debridement (cm) - Length 2.2 2.6 -Post Debridement (cm) - Width 0.6 0.8 -Post Debridement (cm) - Depth 0.5 0.4 -Total Square (Post) (cm) 1.32 2.08 -Area of Debridement (cm) - Length 2.2 2.6 -Area of Debridement (cm) - Width 0.6 0.8 -Total Square (Area) (cm) 1.32 2.08 -Tunneling No No -Undermining/Tunneling No No -Circular Undermining No No -Wound/Ulcer Outcome Not Healed Not Healed -Ulcer Cleansing Rinsed/ Rinsed/ Irrigated with Irrigated with Saline Saline -Foul Odor after Cleansing No No -Bioengineered Tissue No No -Bleeding Controlled with Pressure Pressure -Treatment Response Procedure Tolerated Well -Offloading No -Debridement - Subq, 1st 20sq cm Yes No Pain Scale: 0-10 Numeric Is Patient Pain Free? Yes Yes - Nurse 3 - General Ulcer D/C NN Start: 09/13/22 09:19 Freq: Status: Active Protocol: Activity Type Activity Date Activity User E-sign Co-sign Detail Recorded Client Recorded Date Recorded By Document 09/13/22 11:02 AK [id number] 09/13/22 11:03 AK Document 09/27/22 09:48 MW [id number] 09/27/22 09:49 MW 09/13/22 09/27/22 11:02 09:48 Wound Care Center Nurse 3 #11 R Groin -Ulcer Cleansing Rinsed/ Rinsed/ Irrigated with Irrigated with Saline Saline -Foul Odor after Cleansing No No -Negative Pressure Wound Therapy N/A N/A -Primary Dressing Applied C Hydrogel ($) -Other Dressing hydrogel and c.hydrogel AMD -Primary Dressing Covered/Secured with Dry Gauze, Dry Gauze, Secured with Secured with Tape Tape -Other Covering AMD foam dressing Treatment Response Procedure Tolerated Well Pain Scale: 0-10 Numeric Is Patient Pain Free? Yes Yes Teaching: Wound Center Dressing Your Wound -Person Taught Patient -Teaching Method Discussion -Response to teaching Verbalize understanding WC - Visit Discharge Discharge Condition Stable Stable Ambulatory Status Ambulatory Ambulatory Transportation Private Auto Private Auto Accompanied by self Medication Reconcilliation completed & Yes No provided to patient/care provider Clinical Summary of Care Provided Yes Yes Assessment/Plan Assessment/Plan (1) Soft tissue radionecrosis: CODE(S): L59.8 - Other specified disorders of the skin and subcutaneous tissue related to radiation; Y84.2 - Radiological procedure and radiotherapy as the cause of abnormal reaction of the patient, or of later complication, without mention of misadventure at the time of the procedure (2) Radiation injury: CODE(S): T66.XXXA - Radiation sickness, unspecified, initial encounter (3) History of melanoma: CODE(S): Z85.820 - Personal history of malignant melanoma of skin PLAN: Plan The patient's course of hyperbaric oxygen therapy has been completed. A total of 57 HBO therapy sessions were implemented. The final 3 sessions were eliminated closed at the patient's myringotomy tubes spontaneously extruded, and the patient was noted to develop ear pain during the course of her final hyperbaric oxygen therapy treatment. With regard to her right groin ulceration, we are to continue the use of a Get AMD Antimicrobial Foam dressing which is impregnated with PHMB, which will be used in combination with collagen hydrogel, and applied on a daily basis. The patient will return in 2 weeks for reassessment. We plan to implement the use of an EpiFix allograft upon the patient's return. Total time: 22 minutes
--- NOTE | 2022-10-03 16:10 | PN.PCM_ITS ---
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 The patient was diagnosed with melanoma of the right calf in the 1969's. The melanoma was metastatic to lymph nodes. The patient underwent excision of her melanoma with lymphadenectomy in the right groin. She also underwent lengthy radiation treatments at the [facility] in [place], [place]. Melanoma recurred, and the patient was subsequently treated with monoclonal antibodies in 1984. However, due to the presence of severe radiation injury, persisting open wounds in the right thigh, MRSA infection, and severe radiation injury to the right femoral artery, the patient subsequently required right above-knee amputation in 2002. 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 Treatment included local ulcer care and hyperbaric oxygen therapy. She underwent a total of nearly 90 treatments of hyperbaric oxygen therapy. It is known that she tolerated the therapies well, and derived significant benefit. 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 She has also undergone several more sessions of hyperbaric oxygen therapy. She also received a series of 10 EpiFix allografts in the course of previous treatment. Each of the patient's prior courses of treatment in our facility have been protracted, with difficulties encountered in achieving complete healing. Her most recent course of treatment ended with successful healing and discharge in February 2021. The patient presented at this time with a recurrence of her right groin ulceration, again thought to be secondary to soft tissue radiation injury. The ulceration recurred spontaneously approximately 2-3 weeks prior to her presentation. The patient indicates that her health history has not changed since she was last treated in our facility. Objective Data Objective Data Vital Signs: Vital Signs Temp Pulse Resp BP 97.1 F L 88 18 163/88 H 09/27/22 09:23 09/27/22 09:23 09/13/22 09:19 09/27/22 09:23 Weight: 196 lb 1.696 oz Body Mass Index (BMI) 29.8 Debridement Note Debridement Note Post-Debridement Measurements and Additional Note: Post-Debridement Measurements/Treatment WC - Nurse 1 - General Ulcer Assessment Start: 09/13/22 09:19 Freq: Status: Active Protocol: MICHAEL Activity Type Activity Date Activity User E-sign Co-sign Detail Recorded Client Recorded Date Recorded By Document 09/13/22 09:19 DL [id number] 09/13/22 09:26 DL Document 09/27/22 09:23 AK [id number] 09/27/22 09:25 AK 09/13/22 09/27/22 09:19 09:23 WC - Today's Visit Information Type of service Follow-up Visit Follow-up 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/AUTO RENTAL SUPERVISOR (Physician/AUTO RENTAL SUPERVISOR ) ) Arrival Mode Ambulatory Ambulatory Transfer Assistance None Patient Identification Verified (Name & Yes Yes ) Patient Requires Transmission-Based No No Precautions Height and Weight Body Mass Index (BMI) 29.8 29.8 BMI Classification Overweight Overweight Vital Signs Temperature (97.8 F-99.1 F) 96.6 F L 97.1 F L Temperature Source Temporal Temporal Pulse Rate (60-100) 84 88 Pulse Location Monitor Monitor Respiratory Rate (12-18) 18 Respiratory rate source Observation Blood Pressure (90/60-120/80) 151/78 H 163/88 H Blood Pressure Mean (mm Hg) 102 113 Source Monitor Monitor History Since Last Visit- (Skip if this is Patient's initial visit) Have you changed medications since your No No last visit? Any new allergies or adverse reactions No No Had a fall/change in ADL's that may No No increase risk of falls Signs or symptoms of abuse and/or No No neglect since last visit Have you been in the hospital since your No No last visit? Has dressing in place as prescribed Yes Yes Has compression in place as prescribed N/A N/A Has offloadiing in place as prescribed Yes N/A Experienced any changes in pain level or No No management Left Footwear Regular Shoe Right Footwear Regular Shoe Pain Scale: 0-10 Numeric Is Patient Pain Free? Yes Yes - Nurse 1 - General Ulcer Measurement Start: 09/13/22 09:19 Freq: Status: Active Protocol: Activity Type Activity Date Activity User E-sign Co-sign Detail Recorded Client Recorded Date Recorded By Document 09/13/22 09:19 DL [id number] 09/13/22 09:26 DL Document 09/27/22 09:23 CO [id number] 09/27/22 09:25 AK 09/13/22 09/27/22 09:19 09:23 Wound Center Nurse 1 #11 R Groin -Combined with other wound No -Current Size (cm) - Length 2.2 0.5 -Current Size (cm) - Width 0.6 2.5 -Current Size (cm) - Depth 0.5 0.4 -Total Square Cm 1.32 1.25 -Date of Last Picture (Recall this 09/13/22 field) -Photo Taken Yes Yes -Tunneling No No -Undermining/Tunneling No No -Circular Undermining No No -Change in Wound Grade/Stage No No -Exudate Amt Medium None Present -Exudate Type Serosanguineous -Wound Margin Distinct, Distinct, Outline Outline Attached Attached -Granulation Amt Large (67-100%) Large (67-100%) -Granulation Quality [place] Pale -Slough/Fibrin Yes Yes -Necrosis Amt Medium (34-66%) Small (1-33%) -Necrotic Tissue Type Adherent Slough Adherent Slough -Structure Exposed N/A N/A -Texture (Blanche-wound Skin Appearance) Assessed, Assessed, Scarring Scarring -Moisture (Blanche-wound Skin Appearance) No Abnormality, No Abnormality, Assessed Assessed -Color (Blanche-wound Skin Appearance) No Abnormality, No Abnormality, Assessed Assessed -Temperature (Blanche-wound Skin No Abnormality No Abnormality Appearance) (Pt Warm) (Pt Warm) -Tenderness on Palpation (Blanche-wound No No Skin Appearance) -Ulcer Cleansing Rinsed/ Rinsed/ Irrigated with Irrigated with Saline Saline -Foul Odor after Cleansing No No -Anesthetic Used 4% Lidocaine 4% Lidocaine Solution Solution WC - Nurse 2 - General Ulcer CM Notes Start: 09/13/22 09:19 Freq: Status: Active Protocol: Activity Type Activity Date Activity User E-sign Co-sign Detail Recorded Client Recorded Date Recorded By Document 09/13/22 11:29 PL [id number] 09/13/22 11:30 PL Document 09/27/22 09:40 MW [id number] 09/27/22 09:47 MW Edit Result 09/27/22 09:40 MW (1) [id number] 09/29/22 07:19 PL (1) #11 R Groin - Debridement - Subq, 1st 20sq cm No => Yes 09/13/22 09/27/22 11:29 09:40 Wound Center Nurse 2 #11 R Groin -Time 09:35 09:41 -Correct Patient Yes Yes -Correct Side, Site, Position Yes Yes -Correct Procedure Yes Yes -Procedure Performed Yes Yes -Type of Procedure Debridement Debridement -Clinical Debridement Subcutaneous Subcutaneous -Tissue Removed Subcutaneous Subcutaneous -Post Debridement (cm) - Length 2.2 2.6 -Post Debridement (cm) - Width 0.6 0.8 -Post Debridement (cm) - Depth 0.5 0.4 -Total Square (Post) (cm) 1.32 2.08 -Area of Debridement (cm) - Length 2.2 2.6 -Area of Debridement (cm) - Width 0.6 0.8 -Total Square (Area) (cm) 1.32 2.08 -Tunneling No No -Undermining/Tunneling No No -Circular Undermining No No -Wound/Ulcer Outcome Not Healed Not Healed -Ulcer Cleansing Rinsed/ Rinsed/ Irrigated with Irrigated with Saline Saline -Foul Odor after Cleansing No No -Bioengineered Tissue No No -Bleeding Controlled with Pressure Pressure -Treatment Response Procedure Tolerated Well -Offloading No -Debridement - Subq, 1st 20sq cm Yes Yes Pain Scale: 0-10 Numeric Is Patient Pain Free? Yes Yes - Nurse 3 - General Ulcer D/C NN Start: 09/13/22 09:19 Freq: Status: Active Protocol: Activity Type Activity Date Activity User E-sign Co-sign Detail Recorded Client Recorded Date Recorded By Document 09/13/22 11:02 AK [id number] 09/13/22 11:03 AK Document 09/27/22 09:48 MW [id number] 09/27/22 09:49 MW 09/13/22 09/27/22 11:02 09:48 Wound Care Center Nurse 3 #11 R Groin -Ulcer Cleansing Rinsed/ Rinsed/ Irrigated with Irrigated with Saline Saline -Foul Odor after Cleansing No No -Negative Pressure Wound Therapy N/A N/A -Primary Dressing Applied C Hydrogel ($) -Other Dressing hydrogel and c.hydrogel AMD -Primary Dressing Covered/Secured with Dry Gauze, Dry Gauze, Secured with Secured with Tape Tape -Other Covering AMD foam dressing Treatment Response Procedure Tolerated Well Pain Scale: 0-10 Numeric Is Patient Pain Free? Yes Yes Teaching: Wound Center Dressing Your Wound -Person Taught Patient -Teaching Method Discussion -Response to teaching Verbalize understanding WC - Visit Discharge Discharge Condition Stable Stable Ambulatory Status Ambulatory Ambulatory Transportation Private Auto Private Auto Accompanied by self Medication Reconcilliation completed & Yes No provided to patient/care provider Clinical Summary of Care Provided Yes Yes Assessment/Plan Assessment/Plan (1) soft tissue radiation injury: (2) Radiation injury: CODE(S): T66.XXXA - Radiation sickness, unspecified, initial encounter QUALIFIERS: Encounter type: subsequent encounter Qualified Code(s): T66.XXXD - Radiation sickness, unspecified, subsequent encounter (3) History of melanoma: CODE(S): Z85.820 - Personal history of malignant melanoma of skin PLAN: Plan We have considered additional options in the patient's management, as the progress of her right groin wound, related to radiation injury, has been slow. Patient is showing very little progress in recent weeks. We are to implement the use of Pentoxifylline orally. Pentoxifylline has merit in the treatment of venous stasis ulcerations. Its use is documented in the literature. It is an off label indication. Similarly, literature exists in support of the use of Pentoxifylline in the treatment of soft tissue radiation injuries. I have contacted the patient by telephone to discuss this option with her, as an adjunct to the other measures which are currently in place. She has been advised that the use of this medication is an off label indication. It appears as though the medication is relatively inexpensive, and the risk of adverse reactions appears to be low. The indications and risks of the medication, and the potential benefits, have been discussed with the patient in detail. The patient's questions have been answered. She has indicated her desire to proce ed. Pentoxifylline 400 mg has been prescribed, to be taken on a 3 times daily basis. A prescription has been called to the patient's pharmacy. She is to begin taking the medication without delay. The potential benefits of the medication will be assessed during the patient's subsequent serial follow-up visits.
== END 2022-10-07 23:59 | disposition home or self-care (01) ==
LOC: WC 09:15
PROVIDERS: PCP Family Medicine; Visit Provider Surgery
DX: L59.8 Other specified disorders of the skin and subcutaneous tissue related to radiation (principal); L97.112 Non-pressure chronic ulcer of right thigh with fat layer exposed; Z87.891 Personal history of nicotine dependence; Z92.3 Personal history of irradiation; Z85.820 Personal history of malignant melanoma of skin; T66.XXXA Radiation sickness, unspecified, initial encounter; Y84.2 Radiological procedure and radiotherapy as the cause of abnormal reaction of the patient, or of later complication, without mention of misadventure at the time of the procedure
CPT/HCPCS: 11042

== ENCOUNTER 2022-11-01 11:30 | Outpatient (RCR) | payer MEDICARE, OTHER, SELFPAY ==
[2022-10-08 01:24] VITALS: BP 163/88; PULSE 88; RESP 18; TEMP 36.2; BMI 29.8
[2022-10-11 09:27] VITALS: BP 145/89; PULSE 94; RESP 16; TEMP 36.1; BMI 29.8
--- NOTE | 2022-10-11 12:22 | HP.PCM_ITS ---
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 The patient was diagnosed with melanoma of the right calf in the 1969's. 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 The patient underwent excision of her melanoma with lymphadenectomy in the right groin. She also underwent lengthy radiation treatments at the [facility] in [place], [place]. Melanoma recurred, and the patient was subsequently treated with monoclonal antibodies in 1984. 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 Treatment included local ulcer care and hyperbaric oxygen therapy. She underwent a total of nearly 90 treatments of hyperbaric oxygen therapy. It is known that she tolerated the therapies well, and derived significant benefit. 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 She has also undergone several more sessions of hyperbaric oxygen therapy. She also received a series of 10 EpiFix allografts in the course of previous treatment. Each of the patient's prior courses of treatment in our facility have been protracted, with difficulties encountered in achieving complete healing. Her most recent course of treatment ended with successful healing and discharge in February 2021. The patient presented at this time with a recurrence of her right groin ulceration, again thought to be secondary to soft tissue radiation injury. The ulceration recurred spontaneously approximately 2-3 weeks prior to her presentation. The patient indicates that her health history has not changed since she was last treated in our facility. [facility] Medical History Bilateral cataracts Cancer Hemorrhoids Knee pain Radiation injury Home Medications famotidine 20 mg tablet 20 mg PO 06/20/17 [History Last Taken Unknown] pravastatin 20 mg tablet 20 mg PO DAILY 06/20/17 [History Last Taken Unknown] famotidine 40 mg tablet PO 90 days ##90 12/26/17 [History Last Taken Unknown] pravastatin 20 mg tablet PO 90 days ##90 12/26/17 [History Last Taken Unknown] Allergy/AdvReac Type Severity Reaction Status Date / Time No Known Allergies Allergy Verified 02/15/22 09:08 Family History Other Heart disease Hypertension Surgical History Hx of AKA (above knee amputation) Social History Smoking Status: Former smoker alcohol intake: current alcohol intake frequency: holidays/special occasions only Vital Signs Vital Signs Vital Signs: 10/11/22 09:27 Temperature 96.9 F L Temperature Source Temporal Pulse Rate 94 Respiratory Rate 16 Blood Pressure 145/89 H Blood Pressure Mean 107 Blood Pressure Position Sitting Blood Pressure Location Left Arm Oxygen Delivery Method Room Air Weight Weight: 196 lb 1.696 oz Body Mass Index (BMI) 29.8 Physical Exam Const alert, oriented x3, no apparent distress and well nourished General Appearance: cooperative, comfortable, well kempt and well developed Orientation / Consciousness: awake, oriented to person, oriented to place and oriented to time HEENT normocephalic, head/scalp atraumatic and hearing grossly normal bilaterally HEENT Narrative: Able to visualize her ear tubes bilaterally. Right tube appears to be shifting out of TM. Head and Scalp: normal to inspection, normocephalic and atraumatic Face and Sinus: normal facial exam External Ear: external ears normal Eyes EOMs intact bilaterally General Eye: normal appearance of both eyes Resp normal respiratory effort, normal air movement, no retractions and no use of accessory muscles Effort and Inspection: able to speak in complete sentences Cardio regular rate and regular rhythm Skin Wound Narrative: A well-healed right above-knee amputation stump is noted. An ulceration persists in the patient's right groin. There is a small amount of bioburden and nonviable tissue present. There is no sign of infection or cellulitis. Dimensions are documented elsewhere. There has been little change in the appearance of the ulceration in recent weeks. Neuro oriented x3, CN's II-XII intact bilaterally, moves all extremities and no focal motor deficits Sensorium / Orientation: awake, alert, oriented to person, oriented to place and oriented to time Psych affect normal Appearance: grossly normal, appropriate and well kempt Attitude: calm and engaged Activity / Motor Behavior: appropriate eye contact Speech: normal speech Thought Process: normal thought process Attention / Concentration: attention grossly intact Insight: insight good Debridement Note Debridement Note Wound debrided: Right groin wound, soft tissue radionecrosis Laterality: Right Type of Debridement: Excisional debridement Anesthesia Used: 5% Lidocaine Gel Depth: Down to and including healthy tissue and in the subcutaneous layer Percentage of wound debrided: 100 Instrument Used: 3mm curette Severity: Fat Layer Exposed Amount of bleeding with debridement: Mild Bleeding Controlled with: Compression and gauze Patient tolerated procedure: Patient tolerated procedure well Debridement Free Text: Following a routine excisional debridement, which was well-tolerated by the patient, an allograft was applied. A 2 cm x 2 cm EpiFix allograft was removed from its sterile packaging. It was then placed in the a ppropriate topical orientation. Adaptic was then placed, and the allograft was anchored using Steri-Strips. A dry sterile gauze dressing was then applied. The patient tolerated the procedure well. The entirety of the graft was utilized. Post-Debridement Measurements and Additional Note: Post-Debridement Measurements/Treatment WC - Nurse 1 - General Ulcer Assessment Start: 10/11/22 09:26 Freq: Status: Active Protocol: MICHAEL Activity Type Activity Date Activity User E-sign Co-sign Detail Recorded Client Recorded Date Recorded By Document 10/11/22 09:27 MW [id number] 10/11/22 09:37 MW 10/11/22 09:27 - Today's Visit Information Type of service Follow-up 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/[employer] ATTENDANT ) Arrival Mode Ambulatory Transfer Assistance None Accompanied by self Patient Identification Verified (Name & Yes ) Patient Requires Transmission-Based No Precautions Height and Weight Body Mass Index (BMI) 29.8 BMI Classification Overweight Vital Signs Temperature (97.8 F-99.1 F) 96.9 F L Temperature Source Temporal Pulse Rate (60-100) 94 Pulse Location Monitor Respiratory Rate (12-18) 16 Respiratory rate source Observation Oxygen Delivery Method Room Air Blood Pressure (90/60-120/80) 145/89 H Blood Pressure Mean 107 Position Sitting Blood Pressure Location Left Arm History Since Last Visit- (Skip if this is Patient's initial visit) Have you changed medications since your No last visit? Any new allergies or adverse reactions No Had a fall/change in ADL's that may No increase risk of falls Signs or symptoms of abuse and/or No neglect since last visit Have you been in the hospital since your No last visit? Has dressing in place as prescribed Yes Has compression in place as prescribed N/A Has offloadiing in place as prescribed N/A Experienced any changes in pain level or No management Left Footwear Regular Shoe Right Footwear Other Footwear (Comment) Other Footwear prosthesis RLE Pain Scale: 0-10 Numeric Is Patient Pain Free? Yes WC - Nurse 1 - General Ulcer Measurement Start: 10/11/22 09:26 Freq: Status: Active Protocol: Activity Type Activity Date Activity User E-sign Co-sign Detail Recorded Client Recorded Date Recorded By Document 10/11/22 09:27 MW [id number] 10/11/22 09:37 MW 10/11/22 09:27 Wound Center Nurse 1 #11 R Groin -Combined with other wound No -Current Size (cm) - Length 2.4 -Current Size (cm) - Width 0.9 -Current Size (cm) - Depth 0.3 -Total Square Cm 2.16 -Date of Last Picture (Recall this 10/11/22 field) -Photo Taken Yes -Epithelialization None Present -Tunneling No -Undermining/Tunneling No -Circular Undermining No -Exudate Amt Small -Exudate Type Serosanguineous -Wound Margin Distinct, Outline Attached -Granulation Amt Large (67-100%) -Granulation Quality [place] -Slough/Fibrin Yes -Necrosis Amt Small (1-33%) -Necrotic Tissue Type Adherent Slough -Structure Exposed N/A -Texture (Blanche-wound Skin Appearance) Assessed, Scarring -Moisture (Blanche-wound Skin Appearance) No Abnormality, Assessed -Color (Blanche-wound Skin Appearance) No Abnormality, Assessed -Temperature (Blanche-wound Skin No Abnormality Appearance) (Pt Warm) -Tenderness on Palpation (Blanche-wound No Skin Appearance) -Ulcer Cleansing Rinsed/ Irrigated with Saline -Foul Odor after Cleansing No -Anesthetic Used 4% Lidocaine Solution Lower Limb Edema Present No WC - Nurse 2 - General Ulcer CM Notes Start: 10/11/22 09:26 Freq: Status: Active Protocol: Activity Type Activity Date Activity User E-sign Co-sign Detail Recorded Client Recorded Date Recorded By Document 10/11/22 12:00 PL [id number] 10/11/22 12:01 PL 10/11/22 12:00 Wound Center Nurse 2 #11 R Groin -Time 09:47 -Correct Patient Yes -Correct Side, Site, Position Yes -Correct Procedure Yes -Procedure Performed Yes -Type of Procedure Debridement -Clinical Debridement Subcutaneous -Tissue Removed Subcutaneous -Post Debridement (cm) - Length 2.4 -Post Debridement (cm) - Width 0.9 -Post Debridement (cm) - Depth 0.3 -Total Square (Post) (cm) 2.16 -Area of Debridement (cm) - Length 2.4 -Area of Debridement (cm) - Width 0.9 -Total Square (Area) (cm) 2.16 -Tunneling No -Undermining/Tunneling No -Circular Undermining No -Wound/Ulcer Outcome Not Healed -Ulcer Cleansing Rinsed/ Irrigated with Saline -Foul Odor after Cleansing No -Bioengineered Tissue Yes -Type of Bioengineered Tissue Epifix -Expiration Date 06/09/27 -Product Lot Number [id number] -Percent Used 100 -Bleeding Controlled with Pressure -Treatment Response Procedure Tolerated Well -Debridement - Subq, 1st 20sq cm No -Apply Skin Sub - 1st 25 sq cm - Legs 1 -Epifix (per sq cm) 4 Pain Scale: 0-10 Numeric Is Patient Pain Free? Yes Assessment/Plan Assessment/Plan (1) soft tissue radiation injury: (2) Radiation injury: CODE(S): T66.XXXA - Radiation sickness, unspecified, initial encounter QUALIFIERS: Encounter type: subsequent encounter Qualified Code(s): T66.XXXD - Radiation sickness, unspecified, subsequent encounter (3) History of melanoma: CODE(S): Z85.820 - Personal history of malignant melanoma of skin PLAN: Plan We have considered additional options in the patient's management, as the progress of her right groin wound, related to radiation injury, has been slow. The patient has shown very little progress in recent weeks. We have recently implemented the use of Pentoxifylline orally. Pentoxifylline has merit in the treatment of venous stasis ulcerations. Its use is documented in the literature. It is an off label indication. Similarly, literature exists in support of the use of Pentoxifylline in the treatment of soft tissue radiation injuries. She has been advised that the use of this medication is an off label indication. It appears as though the medication is relatively inexpensive, and the risk of adverse reactions appears to be low. The indications and risks of the medication, and the potential benefits, have been discussed with the patient in detail. The patient's questions have been answered. Pentoxifylline 400 mg has been prescribed, to be taken on a 3 times daily basis. The potential benefits of the medication will be assessed during the patient's subsequent serial follow-up visits. In addition, an EpiFix allograft has been [facility] today. This represents the first allograft placement. The allograft is to be left in place, undisturbed, and the wound will be reeval uated upon the patient's return visit in 1 week. Total time: 26 minutes
[2022-10-18 09:26] VITALS: BP 166/92; PULSE 80; RESP 18; TEMP 36.2; BMI 29.8
--- NOTE | 2022-10-18 13:11 | HP.PCM_ITS ---
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 The patient was diagnosed with melanoma of the right calf in the 1969's. 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 The patient underwent excision of her melanoma with lymphadenectomy in the right groin. She also underwent lengthy radiation treatments at the [facility] in [place], [place]. Melanoma recurred, and the patient was subsequently treated with monoclonal antibodies in 1984. 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 Treatment included local ulcer care and hyperbaric oxygen therapy. She underwent a total of nearly 90 treatments of hyperbaric oxygen therapy. It is known that she tolerated the therapies well, and derived significant benefit. 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 She has also undergone several more sessions of hyperbaric oxygen therapy. She also received a series of 10 EpiFix allografts in the course of previous treatment. Each of the patient's prior courses of treatment in our facility have been protracted, with difficulties encountered in achieving complete healing. Her most recent course of treatment ended with successful healing and discharge in February 2021. The patient presented at this time with a recurrence of her right groin ulceration, again thought to be secondary to soft tissue radiation injury. The ulceration recurred spontaneously approximately 2-3 weeks prior to her presentation. The patient indicates that her health history has not changed since she was last treated in our facility. [facility] Medical History Bilateral cataracts Cancer Hemorrhoids Knee pain Radiation injury Home Medications famotidine 20 mg tablet 20 mg PO 06/20/17 [History Last Taken Unknown] pravastatin 20 mg tablet 20 mg PO DAILY 06/20/17 [History Last Taken Unknown] famotidine 40 mg tablet PO 90 days ##90 12/26/17 [History Last Taken Unknown] pravastatin 20 mg tablet PO 90 days ##90 12/26/17 [History Last Taken Unknown] Allergy/AdvReac Type Severity Reaction Status Date / Time No Known Allergies Allergy Verified 02/15/22 09:08 Family History Other Heart disease Hypertension Surgical History Hx of AKA (above knee amputation) Social History Smoking Status: Former smoker alcohol intake: current alcohol intake frequency: holidays/special occasions only Vital Signs Vital Signs Vital Signs: 10/18/22 09:26 Temperature 97.2 F L Temperature Source Temporal Pulse Rate 80 Respiratory Rate 18 Blood Pressure 166/92 H Blood Pressure Mean 116 Blood Pressure Source Monitor Blood Pressure Position Sitting Blood Pressure Location Right Arm Oxygen Delivery Method Room Air Weight Weight: 196 lb 1.696 oz Body Mass Index (BMI) 29.8 Physical Exam Const alert, oriented x3, no apparent distress and well nourished General Appearance: cooperative, comfortable, well kempt and well developed Orientation / Consciousness: awake, oriented to person, oriented to place and oriented to time HEENT normocephalic, head/scalp atraumatic and hearing grossly normal bilaterally HEENT Narrative: Able to visualize her ear tubes bilaterally. Right tube appears to be shifting out of TM. Head and Scalp: normal to inspection, normocephalic and atraumatic Face and Sinus: normal facial exam External Ear: external ears normal Eyes EOMs intact bilaterally General Eye: normal appearance of both eyes Resp normal respiratory effort, normal air movement, no retractions and no use of accessory muscles Effort and Inspection: able to speak in complete sentences Cardio regular rate and regular rhythm Skin Wound Narrative: A well-healed right above-knee amputation stump is noted. An ulceration persists in the patient's right groin. There is a small amount of bioburden and nonviable tissue present. There is no sign of infection or cellulitis. Dimensions are documented elsewhere. There has been little change in the appearance of the ulceration in recent weeks. Neuro oriented x3, CN's II-XII intact bilaterally, moves all extremities and no focal motor deficits Sensorium / Orientation: awake, alert, oriented to person, oriented to place and oriented to time Psych affect normal Appearance: grossly normal, appropriate and well kempt Attitude: calm and engaged Activity / Motor Behavior: appropriate eye contact Speech: normal speech Thought Process: normal thought process Attention / Concentration: attention grossly intact Insight: insight good Debridement Note Debridement Note Wound debrided: Right groin wound, soft tissue radionecrosis Laterality: Right Type of Debridement: Excisional debridement Anesthesia Used: 5% Lidocaine Gel Depth: Down to and including healthy tissue and in the subcutaneous layer Percentage of wound debrided: 100 Instrument Used: 3mm curette Severity: Fat Layer Exposed Amount of bleeding with debridement: Mild Bleeding Controlled with: Compression and gauze Patient tolerated procedure: Patient tolerated procedure well Debridement Free Text: Following a routine excisional debridement, which was well-tolerated by the patient, an allograft was applied. A 2 cm x 2 cm EpiFix allograft was removed from its sterile packaging. It was then placed in the appropriate topical orientation. Adaptic was then placed, and the allograft was anchored using Steri-Strips. A dry sterile gauze dressing was then applied. The patient tolerated the procedure well. The entirety of the graft was utilized. Today's allograft application represents the second such allograft placement. Post-Debridement Measurements and Additional Note: Post-Debridement Measurements/Treatment - Nurse 1 - General Ulcer Assessment Start: 10/11/22 09:26 Freq: Status: Active Protocol: MICHAEL Activity Type Activity Date Activity User E-sign Co-sign Detail Recorded Client Recorded Date Recorded By Document 10/11/22 09:27 MW [id number] 10/11/22 09:37 MW Document 10/18/22 09:26 MW [id number] 10/18/22 09:37 MW 10/11/22 10/18/22 09:27 09:26 - Today's Visit Information Type of service Follow-up Visit Follow-up 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/RECYCLE DRIVER (Physician/RECYCLE DRIVER ) ) Arrival Mode Ambulatory Ambulatory Transfer Assistance None None Accompanied by self self Patient Identification Verified (Name & Yes Yes ) Patient Requires Transmission-Based No No Precautions Safety Precautions NA,Fall Prevention Height and Weight Body Mass Index (BMI) 29.8 29.8 BMI Classification Overweight Overweight Vital Signs Temperature (97.8 F-99.1 F) 96.9 F L 97.2 F L Temperature Source Temporal Temporal Pulse Rate (60-100) 94 80 Pulse Location Monitor Monitor Respiratory Rate (12-18) 16 18 Respiratory rate source Observation Observation Oxygen Delivery Method Room Air Room Air Blood Pressure (90/60-120/80) 145/89 H 166/92 H Blood Pressure Mean 107 116 Source Monitor Position Sitting Sitting Blood Pressure Location Left Arm Right Arm History Since Last Visit- (Skip if this is Patient's initial visit) Have you changed medications since your No No last visit? Any new allergies or adverse reactions No No Had a fall/change in ADL's that may No No increase risk of falls Signs or symptoms of abuse and/or No No neglect since last visit Have you been in the hospital since your No No last visit? Has dressing in place as prescribed Yes Yes Has compression in place as prescribed N/A N/A Has offloadiing in place as prescribed N/A N/A Experienced any changes in pain level or No No management Left Footwear Regular Shoe Regular Shoe Right Footwear Other Footwear Regular Shoe (Comment) Other Footwear prosthesis RLE Pain Scale: 0-10 Numeric Is Patient Pain Free? Yes Yes WC - Nurse 1 - General Ulcer Measurement Start: 10/11/22 09:26 Freq: Status: Active Protocol: Activity Type Activity Date Activity User E-sign Co-sign Detail Recorded Client Recorded Date Recorded By Document 10/11/22 09:27 MW [id number] 10/11/22 09:37 MW Document 10/18/22 09:26 MW [id number] 10/18/22 09:37 MW 10/11/22 10/18/22 09:27 09:26 Wound Center Nurse 1 #11 R Groin -Combined with other wound No No -Current Size (cm) - Length 2.4 2.5 -Current Size (cm) - Width 0.9 1.0 -Current Size (cm) - Depth 0.3 0.4 -Total Square Cm 2.16 2.50 -Date of Last Picture (Recall this 10/11/22 10/18/22 field) -Photo Taken Yes Yes -Epithelialization None Present None Present -Tunneling No No -Undermining/Tunneling No No -Circular Undermining No No -Exudate Amt Small None Present -Exudate Type Serosanguineous -Wound Margin Distinct, Outline Attached -Granulation Amt Large (67-100%) Medium (34-66%) -Granulation Quality [place] -Slough/Fibrin Yes Yes -Necrosis Amt Small (1-33%) Small (1-33%) -Necrotic Tissue Type Adherent Slough Adherent Slough -Structure Exposed N/A N/A -Texture (Blanche-wound Skin Appearance) Assessed, Assessed, Scarring Scarring -Moisture (Blanche-wound Skin Appearance) No Abnormality, No Abnormality, Assessed Assessed -Color (Blanche-wound Skin Appearance) No Abnormality, No Abnormality, Assessed Assessed -Temperature (Blanche-wound Skin No Abnormality No Abnormality Appearance) (Pt Warm) (Pt Warm) -Tenderness on Palpation (Blanche-wound No No Skin Appearance) -Ulcer Cleansing Rinsed/ Rinsed/ Irrigated with Irrigated with Saline Saline -Foul Odor after Cleansing No No -Anesthetic Used 4% Lidocaine 4% Lidocaine Solution Solution Lower Limb Edema Present No No WC - Nurse 2 - General Ulcer CM Notes Start: 10/11/22 09:26 Freq: Status: Active Protocol: Activity Type Activity Date Activity User E-sign Co-sign Detail Recorded Client Recorded Date Recorded By Document 10/11/22 12:00 PL [id number] 10/11/22 12:01 PL Document 10/18/22 12:21 PL [id number] 10/18/22 12:24 PL 10/11/22 10/18/22 12:00 12:21 Wound Center Nurse 2 #11 R Groin -Time 09:47 10:05 -Correct Patient Yes Yes -Correct Side, Site, Position Yes Yes -Correct Procedure Yes Yes -Procedure Performed Yes Yes -Type of Procedure Debridement Debridement -Clinical Debridement Subcutaneous Subcutaneous -Tissue Removed Subcutaneous Subcutaneous -Post Debridement (cm) - Length 2.4 2.5 -Post Debridement (cm) - Width 0.9 1.0 -Post Debridement (cm) - Depth 0.3 0.4 -Total Square (Post) (cm) 2.16 2.50 -Area of Debridement (cm) - Length 2.4 2.5 -Area of Debridement (cm) - Width 0.9 1.0 -Total Square (Area) (cm) 2.16 2.50 -Tunneling No No -Undermining/Tunneling No No -Circular Undermining No No -Wound/Ulcer Outcome Not Healed Not Healed -Ulcer Cleansing Rinsed/ Rinsed/ Irrigated with Irrigated with Saline Saline -Foul Odor after Cleansing No No -Bioengineered Tissue Yes Yes -Type of Bioengineered Tissue Epifix Epifix -Expiration Date 06/09/27 06/09/27 -Product Lot Number [id number] -Percent Used 100 100 -Bleeding Controlled with Pressure Pressure -Treatment Response Procedure Procedure Tolerated Well Tolerated Well -Debridement - Subq, 1st 20sq cm No Yes -Apply Skin Sub - 1st 25 sq cm - Legs 1 1 -Epifix (per sq cm) 4 4 Pain Scale: 0-10 Numeric Is Patient Pain Free? Yes Yes - Nurse 3 - General Ulcer D/C NN Start: 10/11/22 09:26 Freq: Status: Active Protocol: Activity Type Activity Date Activity User E-sign Co-sign Detail Recorded Client Recorded Date Recorded By Document 10/12/22 12:08 DL [id number] 10/12/22 12:10 DL Document 10/18/22 11:07 DL [id number] 10/18/22 11:08 DL 10/12/22 10/18/22 12:08 11:07 Wound Care Center Nurse 3 #11 R Groin -Foul Odor after Cleansing No No -Other Dressing Epi fix Epi fix -Primary Dressing Covered/Secured with Dry Gauze, Dry Gauze, Secured with Secured with Tape Tape Treatment Response Procedure Procedure Tolerated Well Tolerated Well Pain Scale: 0-10 Numeric Is Patient Pain Free? Yes Yes - Visit Discharge Discharge Condition Stable Stable Ambulatory Status Ambulatory, Ambulatory Crutches Transportation Private Auto Notes: Dressing applied 10/11/22, charted 10/12/22 . Assessment/Plan Assessment/Plan (1) soft tissue radiation injury: (2) Radiation injury: CODE(S): T66.XXXA - Radiation sickness, unspecified, initial encounter QUALIFIERS: Encounter type: subsequent encounter Qualified Code(s): T66.XXXD - Radiation sickness, unspecified, subsequent encounter (3) History of melanoma: CODE(S): Z85.820 - Personal history of malignant melanoma of skin PLAN: Plan We have considered additional options in the patient's management, as the progress of her right groin wound, related to radiation injury, has been slow. The patient has shown very little progress in recent weeks. We have recently implemented the use of Pentoxifylline orally. Pentoxifylline has merit in the treatment of venous stasis ulcerations. Its use is documented in the literatu re. It is an off label indication. Similarly, literature exists in support of the use of Pentoxifylline in the treatment of soft tissue radiation injuries. She has been advised that the use of this medication is an off-label indication. It appears as though the medication is relatively inexpensive, and the risk of adverse reactions appears to be low. The indications and risks of the medicatio n, and the potential benefits, have been discussed with the patient in detail. The patient's questions have been answered. Pentoxifylline 400 mg has been prescribed, to be taken on a 3 times daily basis. The benefits of the medication will be assessed during the patient's subsequent serial follow-up visits. In addition, an EpiFix allograft has been placed [facility] today. This represents the second allograft placement. The allograft is to be left in place, undisturbed, and the wound will be reevaluated upon the patient's return visit in 2 weeks. Total time: 25 minutes
[2022-11-01 11:45] VITALS: BP 151/80; PULSE 83; RESP 16; TEMP 36.2; BMI 29.8
--- NOTE | 2022-11-01 15:00 | PCM.WC.HP ---
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 The patient was diagnosed with melanoma of the right calf in the 1969's. The melanoma was metastatic to lymph nodes. The patient underwent excision of her melanoma with lymphadenectomy in the right groin. She also underwent lengthy radiation treatments at the [facility] in [place], [place]. Melanoma recurred, and the patient was subsequently treated with monoclonal antibodies in 1984. 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 Treatment included local ulcer care and hyperbaric oxygen therapy. She underwent a total of nearly 90 treatments of hyperbaric oxygen therapy. It is known that she tolerated the therapies well, and derived significant benefit. 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 She has also undergone several more sessions of hyperbaric oxygen therapy. She also received a series of 10 EpiFix allografts in the course of previous treatment. Each of the patient's prior courses of treatment in our facility have been protracted, with difficulties encountered in achieving complete healing. Her most recent course of treatment ended with successful healing and discharge in February 2021. The patient presented at this time with a recurrence of her right groin ulceration, again thought to be secondary to soft tissue radiation injury. The ulceration recurred spontaneously approximately 2-3 weeks prior to her presentation. The patient indicates that her health history has not changed since she was last treated in our facility. [facility] Medical History Bilateral cataracts Cancer Hemorrhoids Knee pain Radiation injury Home Medications famotidine 20 mg tablet 20 mg PO 06/20/17 [History Last Taken Unknown] pravastatin 20 mg tablet 20 mg PO DAILY 06/20/17 [History Last Taken Unknown] famotidine 40 mg tablet PO 90 days ##90 12/26/17 [History Last Taken Unknown] pravastatin 20 mg tablet PO 90 days ##90 12/26/17 [History Last Taken Unknown] Allergy/AdvReac Type Severity Reaction Status Date / Time No Known Allergies Allergy Verified 02/15/22 09:08 Family History Other Heart disease Hypertension Surgical History Hx of AKA (above knee amputation) Social History Smoking Status: Former smoker alcohol intake: current alcohol intake frequency: holidays/special occasions only Vital Signs Vital Signs Vital Signs: 11/01/22 11:45 Temperature 97.1 F L Temperature Source Temporal Pulse Rate 83 Respiratory Rate 16 Blood Pressure 151/80 H Blood Pressure Mean 103 Blood Pressure Source Monitor Blood Pressure Position Sitting Blood Pressure Location Right Arm Oxygen Delivery Method Room Air Weight Weight: 196 lb 1.696 oz Body Mass Index (BMI) 29.8 Physical Exam Const alert, oriented x3, no apparent distress and well nourished General Appearance: cooperative, comfortable, well kempt and well developed Orientation / Consciousness: awake, oriented to person, oriented to place and oriented to time HEENT normocephalic, head/scalp atraumatic and hearing grossly normal bilaterally HEENT Narrative: Able to visualize her ear tubes bilaterally. Right tube appears to be shifting out of TM. Head and Scalp: normal to inspection, normocephalic and atraumatic Face and Sinus: normal facial exam External Ear: external ears normal Eyes EOMs intact bilaterally General Eye: normal appearance of both eyes Resp normal respiratory effort, normal air movement, no retractions and no use of accessory muscles Effort and Inspection: able to speak in complete sentences Cardio regular rate and regular rhythm Skin Wound Narrative: A well-healed right above-knee amputation stump is noted. An ulceration persists in the patient's right groin. There is a small amount of bioburden and nonviable tissue present. There is no sign of infection or cellulitis. Dimensions are documented elsewhere. There has been little change in the appearance of the ulceration in recent weeks. Neuro oriented x3, CN's II-XII intact bilaterally, moves all extremities and no focal motor deficits Sensorium / Orientation: awake, alert, oriented to person, oriented to place and oriented to time Psych affect normal Appearance: grossly normal, appropriate and well kempt Attitude: calm and engaged Activity / Motor Behavior: appropriate eye contact Speech: normal speech Thought Process: normal thought process Attention / Concentration: attention grossly intact Insight: insight good Debridement Note Debridement Note Wound debrided: Right groin wound, soft tissue radionecrosis Laterality: Right Type of Debridement: Excisional debridement Anesthesia Used: 5% Lidocaine Gel Depth: Down to and including healthy tissue and in the subcutaneous layer Percentage of wound debrided: 100 Instrument Used: 3mm curette Severity: Fat Layer Exposed Amount of bleeding with debridement: Mild Bleeding Controlled with: Compression and gauze Patient tolerated procedure: Patient tolerated procedure well Debridement Free Text: Because the patient has noted an increase in drainage from the wound site in the right groin, there is reason to suspect the possibility of developing infection. Therefore, swab cultures have been obtained for aerobic and anaerobic bacterial growth. Post-Debridement Measurements and Additional Note: Post-Debridement Measurements/Treatment - Nurse 1 - General Ulcer Assessment Start: 10/11/22 09:26 Freq: Status: Active Protocol: MICHAEL Activity Type Activity Date Activity User E-sign Co-sign Detail Recorded Client Recorded Date Recorded By Document 10/11/22 09:27 MW [id number] 10/11/22 09:37 MW Document 10/18/22 09:26 MW [id number] 10/18/22 09:37 MW Document 11/01/22 11:45 MW [id number] 11/01/22 11:47 MW 10/11/22 10/18/22 11/01/22 09:27 09:26 11:45 - Today's Visit Information Type of service Follow-up Visit Follow-up Visit Follow-up 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/STEREOPTIC PROJECTION TOPOGRAPHER (Physician/STEREOPTIC PROJECTION TOPOGRAPHER (Physician/STEREOPTIC PROJECTION TOPOGRAPHER ) ) ) Arrival Mode Ambulatory Ambulatory Ambulatory Transfer Assistance None None None Accompanied by self self self Patient Identification Verified (Name & Yes Yes Yes ) Patient Requires Transmission-Based No No No Precautions Safety Precautions NA,Fall Prevention Height and Weight Body Mass Index (BMI) 29.8 29.8 29.8 BMI Classification Overweight Overweight Overweight Vital Signs Temperature (97.8 F-99.1 F) 96.9 F L 97.2 F L 97.1 F L Temperature Source Temporal Temporal Temporal Pulse Rate (60-100) 94 80 83 Pulse Location Monitor Monitor Monitor Respiratory Rate (12-18) 16 18 16 Respiratory rate source Observation Observation Observation Oxygen Delivery Method Room Air Room Air Room Air Blood Pressure (90/60-120/80) 145/89 H 166/92 H 151/80 H Blood Pressure Mean 107 116 103 Source Monitor Monitor Position Sitting Sitting Sitting Blood Pressure Location Left Arm Right Arm Right Arm History Since Last Visit- (Skip if this is Patient's initial visit) Have you changed medications since your No No No last visit? Any new allergies or adverse reactions No No No Had a fall/change in ADL's that may No No No increase risk of falls Signs or symptoms of abuse and/or No No No neglect since last visit Have you been in the hospital since your No No No last visit? Has dressing in place as prescribed Yes Yes Yes Has compression in place as prescribed N/A N/A N/A Has offloadiing in place as prescribed N/A N/A No Experienced any changes in pain level or No No No management Left Footwear Regular Shoe Regular Shoe Regular Shoe Right Footwear Other Footwear Regular Shoe Other Footwear (Comment) (Comment) Other Footwear prosthesis RLE prosthetic RLE Pain Scale: 0-10 Numeric Is Patient Pain Free? Yes Yes Yes WC - Nurse 1 - General Ulcer Measurement Start: 10/11/22 09:26 Freq: Status: Active Protocol: Activity Type Activity Date Activity User E-sign Co-sign Detail Recorded Client Recorded Date Recorded By Document 10/11/22 09:27 MW [id number] 10/11/22 09:37 MW Document 10/18/22 09:26 MW [id number] 10/18/22 09:37 MW Document 11/01/22 11:45 MW [id number] 11/01/22 11:47 MW 10/11/22 10/18/22 11/01/22 09:27 09:26 11:45 Wound Center Nurse 1 #11 R Groin -Combined with other wound No No No -Current Size (cm) - Length 2.4 2.5 2.1 -Current Size (cm) - Width 0.9 1.0 0.6 -Current Size (cm) - Depth 0.3 0.4 0.3 -Total Square Cm 2.16 2.50 1.26 -Date of Last Picture (Recall this 10/11/22 10/18/22 11/01/22 field) -Photo Taken Yes Yes Yes -Epithelialization None Present None Present None Present -Tunneling No No No -Undermining/Tunneling No No No -Circular Undermining No No No -Exudate Amt Small None Present Medium -Exudate Type Serosanguineous Serosanguineous -Wound Margin Distinct, Thickened Outline Attached -Granulation Amt Large (67-100%) Medium (34-66%) Medium (34-66%) -Granulation Quality [facility] -Slough/Fibrin Yes Yes Yes -Necrosis Amt Small (1-33%) Small (1-33%) Small (1-33%) -Necrotic Tissue Type Adherent Slough Adherent Slough Adherent Slough -Structure Exposed N/A N/A N/A -Texture (Blanche-wound Skin Appearance) Assessed, Assessed, Assessed, Scarring Scarring Scarring -Moisture (Blanche-wound Skin Appearance) No Abnormality, No Abnormality, No Abnormality, Assessed Assessed Assessed -Color (Blanche-wound Skin Appearance) No Abnormality, No Abnormality, No Abnormality, Assessed Assessed Assessed -Temperature (Blanche-wound Skin No Abnormality No Abnormality No Abnormality Appearance) (Pt Warm) (Pt Warm) (Pt Warm) -Tenderness on Palpation (Blanche-wound No No No Skin Appearance) -Ulcer Cleansing Rinsed/ Rinsed/ Rinsed/ Irrigated with Irrigated with Irrigated with Saline Saline Saline -Foul Odor after Cleansing No No No -Anesthetic Used 4% Lidocaine 4% Lidocaine 4% Lidocaine Solution Solution Solution Lower Limb Edema Present No No No WC - Nurse 2 - General Ulcer CM Notes Start: 10/11/22 09:26 Freq: Status: Active Protocol: Activity Type Activity Date Activity User E-sign Co-sign Detail Recorded Client Recorded Date Recorded By Document 10/11/22 12:00 PL [id number] 10/11/22 12:01 PL Document 10/18/22 12:21 PL [id number] 10/18/22 12:24 PL Edit Result 10/18/22 12:21 PL (1) [id number] 10/19/22 07:01 PL Document 11/01/22 12:21 PL [id number] 04/25/23 12:22 PL (1) #11 R Groin - Debridement - Subq, 1st 20sq cm Yes => No 10/11/22 10/18/22 11/01/22 12:00 12:21 12:21 Wound Center Nurse 2 #11 R Groin -Time 09:47 10:05 11:52 -Correct Patient Yes Yes Yes -Correct Side, Site, Position Yes Yes Yes -Correct Procedure Yes Yes Yes -Procedure Performed Yes Yes Yes -Type of Procedure Debridement Debridement Debridement -Clinical Debridement Subcutaneous Subcutaneous Subcutaneous -Tissue Removed Subcutaneous Subcutaneous Subcutaneous -Post Debridement (cm) - Length 2.4 2.5 2.1 -Post Debridement (cm) - Width 0.9 1.0 0.6 -Post Debridement (cm) - Depth 0.3 0.4 0.3 -Total Square (Post) (cm) 2.16 2.50 1.26 -Area of Debridement (cm) - Length 2.4 2.5 2.1 -Area of Debridement (cm) - Width 0.9 1.0 0.6 -Total Square (Area) (cm) 2.16 2.50 1.26 -Tunneling No No No -Undermining/Tunneling No No No -Circular Undermining No No No -Wound/Ulcer Outcome Not Healed Not Healed Not Healed -Ulcer Cleansing Rinsed/ Rinsed/ Rinsed/ Irrigated with Irrigated with Irrigated with Saline Saline Saline -Foul Odor after Cleansing No No No -Bioengineered Tissue Yes Yes No -Type of Bioengineered Tissue Epifix Epifix -Expiration Date 06/09/27 06/09/27 -Product Lot Number [id number] -Percent Used 100 100 -Bleeding Controlled with Pressure Pressure Pressure -Treatment Response Procedure Procedure Procedure Tolerated Well Tolerated Well Tolerated Well -Debridement - Subq, 1st 20sq cm No No Yes -Apply Skin Sub - 1st 25 sq cm - Legs 1 1 -Epifix (per sq cm) 4 4 Pain Scale: 0-10 Numeric Is Patient Pain Free? Yes Yes Yes WC - Nurse 3 - General Ulcer D/C NN Start: 10/11/22 09:26 Freq: Status: Active Protocol: Activity Type Activity Date Activity User E-sign Co-sign Detail Recorded Client Recorded Date Recorded By Document 10/12/22 12:08 DL [id number] 10/12/22 12:10 DL Document 10/18/22 11:07 DL [id number] 10/18/22 11:08 DL Document 11/01/22 12:05 DL [id number] 11/01/22 12:06 DL 10/12/22 10/18/22 11/01/22 12:08 11:07 12:05 Wound Care Center Nurse 3 #11 R Groin -Ulcer Cleansing Wound Cleanser -Foul Odor after Cleansing No No No -Primary Dressing Applied Aquacel AG 4x4 -Other Dressing Epi fix Epi fix -Primary Dressing Covered/Secured with Dry Gauze, Dry Gauze, Dry Gauze, Secured with Secured with Secured with Tape Tape Tape -Aquacel AG 4x4 1 Treatment Response Procedure Procedure Procedure Tolerated Well Tolerated Well Tolerated Well Pain Scale: 0-10 Numeric Is Patient Pain Free? Yes Yes Yes WC - Visit Discharge Discharge Condition Stable Stable Stable Ambulatory Status Ambulatory, Ambulatory Ambulatory, Crutches Crutches Transportation Private Auto Private Auto Notes: Dressing applied 10/11/22, charted 10/12/22 . Assessment/Plan Assessment/Plan (1) soft tissue radiation injury: (2) Radiation injury: CODE(S): T66.XXXA - Radiation sickness, unspecified, initial encounter QUALIFIERS: Encounter type: subsequent encounter Qualified Code(s): T66.XXXD - Radiation sickness, unspecified, subsequent encounter (3) History of melanoma: CODE(S): Z85.820 - Personal history of malignant melanoma of skin PLAN: Plan We have considered additional options in the patient's management, as the progress of her right groin wound, related to radiation injury, has been slow. The patient has shown very little progress in recent weeks. We have recently implemented the use of Pentoxifylline orally. Pentoxifylline has merit in the treatment of venous stasis ulcerations. Its use is documented in the literature. It is an off label indication. Similarly, literature exists in support of the use of Pentoxifylline in the treatment of soft tissue radiation injuries. She has been advised that the use of this medication is an off-label indication. It appears as though the medication is relatively inexpensive, and the risk of adverse reactions appears to be low. The indications and risks of the medication, and the potential benefits, have been discussed with the patient in detail. The patient's questions have been answered. Pentoxifylline 400 mg has been prescribed, to be taken on a 3 times daily basis. The benefits of the medication will be assessed during the patient's subsequent serial follow-up visits. Two EpiFix allografts have been recently placed. However, the development of increased drainage has aroused concern as to developing infection. Therefore, swab cultures have been obtained for aerobic and anaerobic bacterial growth. Results will be awaited, and response will depend on the results. An EpiFix allograft was not placed today. We are to implement the use of Aquacel silver, which will be placed topically on a daily basis. We have recently discussed other options, which have been considered by the patient in the past. These options include referral to a tertiary care center for consideration of myocutaneous flap reconstruction of the involved area. However, the described potential complications and needed rehabilitation have given the patient reservations about proceeding with such aggressive management. The patient is to return in 1 week for reassessment. Total time: 26 minutes
== END 2022-11-06 23:59 | disposition home or self-care (01) ==
LOC: WC 11:30
PROVIDERS: PCP Family Medicine; Visit Provider Surgery
DX: L59.8 Other specified disorders of the skin and subcutaneous tissue related to radiation (principal); L97.112 Non-pressure chronic ulcer of right thigh with fat layer exposed; Z92.3 Personal history of irradiation; Z87.891 Personal history of nicotine dependence; Y84.2 Radiological procedure and radiotherapy as the cause of abnormal reaction of the patient, or of later complication, without mention of misadventure at the time of the procedure; T66.XXXA Radiation sickness, unspecified, initial encounter; Z85.820 Personal history of malignant melanoma of skin
CPT/HCPCS: 11042; 15271; 87070; 87075; 87077; 87186; 87205; Q4186

== ENCOUNTER 2022-11-29 09:15 | Outpatient (RCR) | payer MEDICARE, OTHER, SELFPAY ==
[2022-11-07 00:27] VITALS: BP 151/80; PULSE 83; RESP 16; TEMP 36.2; BMI 29.8
[2022-11-08 09:10] VITALS: BP 151/80; PULSE 89; RESP 20; TEMP 36; BMI 29.8
--- NOTE | 2022-11-08 09:50 | HP.PCM_ITS ---
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 The patient was diagnosed with melanoma of the right calf in the 1969's. 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 The patient underwent excision of her melanoma with lymphadenectomy in the right groin. She also underwent lengthy radiation treatments at the [facility] in [place], [place]. Melanoma recurred, and the patient was subsequently treated with monoclonal antibodies in 1984. 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 Treatment included local ulcer care and hyperbaric oxygen therapy. She underwent a total of nearly 90 treatments of hyperbaric oxygen therapy. It is known that she tolerated the therapies well, and derived significant benefit. 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 She has also undergone several more sessions of hyperbaric oxygen therapy. She also received a series of 10 EpiFix allografts in the course of previous treatment. Each of the patient's prior courses of treatment in our facility have been protracted, with difficulties encountered in achieving complete healing. Her most recent course of treatment ended with successful healing and discharge in February 2021. The patient presented at this time with a recurrence of her right groin ulceration, again thought to be secondary to soft tissue radiation injury. The ulceration recurred spontaneously approximately 2-3 weeks prior to her presentation. The patient indicates that her health history has not changed since she was last treated in our facility. [facility] Medical History Bilateral cataracts Cancer Hemorrhoids Knee pain Radiation injury Home Medications famotidine 20 mg tablet 20 mg PO 06/20/17 [History Last Taken Unknown] pravastatin 20 mg tablet 20 mg PO DAILY 06/20/17 [History Last Taken Unknown] famotidine 40 mg tablet PO 90 days ##90 12/26/17 [History Last Taken Unknown] pravastatin 20 mg tablet PO 90 days ##90 12/26/17 [History Last Taken Unknown] Allergy/AdvReac Type Severity Reaction Status Date / Time No Known Allergies Allergy Verified 02/15/22 09:08 Family History Other Heart disease Hypertension Surgical History Hx of AKA (above knee amputation) Social History Smoking Status: Former smoker alcohol intake: current alcohol intake frequency: holidays/special occasions only Vital Signs Vital Signs Vital Signs: 11/08/22 09:10 Temperature 96.8 F L Temperature Source Temporal Pulse Rate 89 Respiratory Rate 20 H Blood Pressure 151/80 H Blood Pressure Mean 103 Blood Pressure Source Monitor Weight Weight: 196 lb 1.696 oz Body Mass Index (BMI) 29.8 Physical Exam Const alert, oriented x3, no apparent distress and well nourished General Appearance: cooperative, comfortable, well kempt and well developed Orientation / Consciousness: awake, oriented to person, oriented to place and oriented to time HEENT normocephalic, head/scalp atraumatic and hearing grossly normal bilaterally HEENT Narrative: Able to visualize her ear tubes bilaterally. Right tube appears to be shifting out of TM. Head and Scalp: normal to inspection, normocephalic and atraumatic Face and Sinus: normal facial exam External Ear: external ears normal Eyes EOMs intact bilaterally General Eye: normal appearance of both eyes Resp normal respiratory effort, normal air movement, no retractions and no use of accessory muscles Effort and Inspection: able to speak in complete sentences Cardio regular rate and regular rhythm Skin Wound Narrative: A well-healed right above-knee amputation stump is noted. An ulceration persists in the patient's right groin. There is a small amount of bioburden and nonviable tissue present. Dimensions are documented elsewhere. There has been little change in the appearance of the ulceration in recent weeks. Neuro oriented x3, CN's II-XII intact bilaterally, moves all extremities and no focal motor deficits Sensorium / Orientation: awake, alert, oriented to person, oriented to place and oriented to time Psych affect normal Appearance: grossly normal, appropriate and well kempt Attitude: calm and engaged Activity / Motor Behavior: appropriate eye contact Speech: normal speech Thought Process: normal thought process Attention / Concentration: attention grossly intact Insight: insight good Debridement Note Debridement Note Wound debrided: Right groin wound, soft tissue radionecrosis Laterality: Right Type of Debridement: Excisional debridement Anesthesia Used: 5% Lidocaine Gel Depth: Down to and including healthy tissue and in the subcutaneous layer Percentage of wound debrided: 100 Instrument Used: 3mm curette Severity: Fat Layer Exposed Amount of bleeding with debridement: Mild Bleeding Controlled with: Compression and gauze Patient tolerated procedure: Patient tolerated procedure well Post-Debridement Measurements and Additional Note: Post-Debridement Measurements/Treatment - Nurse 1 - General Ulcer Assessment Start: 11/08/22 09:10 Freq: Status: Active Protocol: MICHAEL Activity Type Activity Date Activity User E-sign Co-sign Detail Recorded Client Recorded Date Recorded By Document 11/08/22 09:10 DL [id number] 11/08/22 09:16 DL 11/08/22 09:10 WC - Today's Visit Information Type of service 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-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 ) Arrival Mode Ambulatory Transfer Assistance None Patient Identification Verified (Name & Yes ) Patient Requires Transmission-Based No Precautions Height and Weight Body Mass Index (BMI) 29.8 BMI Classification Overweight Vital Signs Temperature (97.8 F-99.1 F) 96.8 F L Temperature Source Temporal Pulse Rate (60-100) 89 Pulse Location Monitor Respiratory Rate (12-18) 20 H Respiratory rate source Observation Blood Pressure (90/60-120/80) 151/80 H Blood Pressure Mean 103 Source Monitor History Since Last Visit- (Skip if this is Patient's initial visit) Have you changed medications since your No last visit? Any new allergies or adverse reactions No Had a fall/change in ADL's that may No increase risk of falls Signs or symptoms of abuse and/or No neglect since last visit Have you been in the hospital since your No last visit? Has dressing in place as prescribed Yes Has compression in place as prescribed N/A Has offloadiing in place as prescribed Yes Experienced any changes in pain level or No management Pain Scale: 0-10 Numeric Is Patient Pain Free? Yes - Nurse 1 - General Ulcer Measurement Start: 11/08/22 09:10 Freq: Status: Active Protocol: Activity Type Activity Date Activity User E-sign Co-sign Detail Recorded Client Recorded Date Recorded By Document 11/08/22 09:10 DL [id number] 11/08/22 09:16 DL 11/08/22 09:10 Wound Center Nurse 1 #11 R Groin -Current Size (cm) - Length 2.4 -Current Size (cm) - Width 0.8 -Current Size (cm) - Depth 0.6 -Total Square Cm 1.92 -Photo Taken No -Exudate Amt Small -Exudate Type Serosanguineous -Wound Margin Thickened -Granulation Amt Medium (34-66%) -Granulation Quality Wasta -Necrosis Amt Medium (34-66%) -Necrotic Tissue Type Adherent Slough -Structure Exposed N/A -Texture (Blanche-wound Skin Appearance) Scarring -Moisture (Blanche-wound Skin Appearance) Dry/Scaly -Color (Blanche-wound Skin Appearance) No Abnormality -Tenderness on Palpation (Blanche-wound No Skin Appearance) -Ulcer Cleansing Rinsed/ Irrigated with Saline -Foul Odor after Cleansing No -Anesthetic Used 4% Lidocaine Solution WC - Nurse 3 - General Ulcer D/C NN Start: 11/08/22 09:10 Freq: Status: Active Protocol: Activity Type Activity Date Activity User E-sign Co-sign Detail Recorded Client Recorded Date Recorded By Document 11/08/22 09:41 DL [id number] 11/08/22 09:43 DL 11/08/22 09:41 Wound Care Center Nurse 3 -Ulcer Cleansing Wound Cleanser -Foul Odor after Cleansing No -Other Dressing aquacel ag -Primary Dressing Covered/Secured with Dry Gauze, Secured with Tape Treatment Response Procedure Tolerated Well Pain Scale: 0-10 Numeric Is Patient Pain Free? Yes WC - Visit Discharge Discharge Condition Stable Ambulatory Status Ambulatory Transportation Private Auto Assessment/Plan Assessment/Plan (1) soft tissue radiation injury: (2) Radiation injury: CODE(S): T66.XXXA - Radiation sickness, unspecified, initial encounter QUALIFIERS: Encounter type: subsequent encounter Qualified Code(s): T66.XXXD - Radiation sickness, unspecified, subsequent encounter (3) History of melanoma: CODE(S): Z85.820 - Personal history of malignant melanoma of skin PLAN: Plan We have considered additional options in the patient's management, as the progress of her right groin wound, related to radiation injury, has been slow. The patient has shown very little progress in recent weeks. We have recently implemented the use of Pentoxifylline orally. Pentoxifylline has merit in the treatment of venous stasis ulcerations. Its use is documented in the literature. It is an off label indication. Similarly, literature exists in support of the use of Pentoxifylline in the treatment of soft tissue radiation injuries. She has been advised that the use of this medication is an off-label indication. It appears as though the medication is relatively inexpensive, and the risk of adverse reactions appears to be low. The indications and risks of the medication, and the potential benefits, have been discussed with the patient in detail. The patient's questions have been answered. Pentoxifylline 400 mg has been prescribed, to be taken on a 3 times daily basis. The benefits of the medication will be assessed during the patient's subsequent serial follow-up visits. Two EpiFix allografts have been recently placed. However, the development of increased drainage has aroused concern as to developing infection. Swab cultures were obtained 1 week ago, and the results have indicated the presence of Staphylococcus aureus, Staphylococcus capitis, Prevotella disiens, and another anaerobic cocci. Therefore, the patient is to be started on Augmentin 875 mg p.o. twice daily for a total of 10 days. We are to continue the use of Aquacel silver, which will be placed topically on a daily basis. We have recently discussed other options, which have been considered by the patient in the past. These options include referral to a tertiary care center for consideration of myocutaneous flap reconstruction of the involved area. However, the described potential complications and needed rehabilitation have given the patient reservations about proceeding with such aggressive management. The patient is to return in 1 week for reassessment. Total time: 25 minutes
[2022-11-15 09:29] VITALS: BP 143/77; PULSE 82; RESP 18; TEMP 36.2; BMI 29.8
--- NOTE | 2022-11-15 10:00 | PCM.WC.HP ---
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 The patient was diagnosed with melanoma of the right calf in the 1969's. The melanoma was metastatic to lymph nodes. The patient underwent excision of her melanoma with lymphadenectomy in the right groin. She also underwent lengthy radiation treatments at the [facility] in [place], [place]. Melanoma recurred, and the patient was subsequently treated with monoclonal antibodies in 1984. However, due to the presence of severe radiation injury, persisting open wounds in the right thigh, MRSA infection, and severe radiation injury to the right femoral artery, the patient subsequently required right above-knee amputation in 2002. 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 Treatment included local ulcer care and hyperbaric oxygen therapy. She underwent a total of nearly 90 treatments of hyperbaric oxygen therapy. It is known that she tolerated the therapies well, and derived significant benefit. 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 She has also undergone several more sessions of hyperbaric oxygen therapy. She also received a series of 10 EpiFix allografts in the course of previous treatment. Each of the patient's prior courses of treatment in our facility have been protracted, with difficulties encountered in achieving complete healing. Her most recent course of treatment ended with successful healing and discharge in February 2021. The patient presented at this time with a recurrence of her right groin ulceration, again thought to be secondary to soft tissue radiation injury. The ulceration recurred spontaneously approximately 2-3 weeks prior to her presentation. The patient indicates that her health history has not changed since she was last treated in our facility. [facility] Medical History Bilateral cataracts Cancer Hemorrhoids Knee pain Radiation injury Home Medications famotidine 20 mg tablet 20 mg PO 06/20/17 [History Last Taken Unknown] pravastatin 20 mg tablet 20 mg PO DAILY 06/20/17 [History Last Taken Unknown] famotidine 40 mg tablet PO 90 days ##90 12/26/17 [History Last Taken Unknown] pravastatin 20 mg tablet PO 90 days ##90 12/26/17 [History Last Taken Unknown] Allergy/AdvReac Type Severity Reaction Status Date / Time No Known Allergies Allergy Verified 02/15/22 09:08 Family History Other Heart disease Hypertension Surgical History Hx of AKA (above knee amputation) Social History Smoking Status: Former smoker alcohol intake: current alcohol intake frequency: holidays/special occasions only Vital Signs Vital Signs Vital Signs: 11/15/22 09:29 Temperature 97.1 F L Temperature Source Temporal Pulse Rate 82 Respiratory Rate 18 Blood Pressure 143/77 H Blood Pressure Mean 99 Blood Pressure Source Monitor Weight Weight: 196 lb 1.696 oz Body Mass Index (BMI) 29.8 Physical Exam Const alert, oriented x3, no apparent distress and well nourished General Appearance: cooperative, comfortable, well kempt and well developed Orientation / Consciousness: awake, oriented to person, oriented to place and oriented to time HEENT normocephalic, head/scalp atraumatic and hearing grossly normal bilaterally HEENT Narrative: Able to visualize her ear tubes bilaterally. Right tube appears to be shifting out of TM. Head and Scalp: normal to inspection, normocephalic and atraumatic Face and Sinus: normal facial exam External Ear: external ears normal Eyes EOMs intact bilaterally General Eye: normal appearance of both eyes Resp normal respiratory effort, normal air movement, no retractions and no use of accessory muscles Effort and Inspection: able to speak in complete sentences Cardio regular rate and regular rhythm Skin Wound Narrative: A well-healed right above-knee amputation stump is noted. An ulceration persists in the patient's right groin. There is a small amount of bioburden and nonviable tissue present. Dimensions are documented elsewhere. There has been little change in the appearance of the ulceration in recent weeks. Neuro oriented x3, CN's II-XII intact bilaterally, moves all extremities and no focal motor deficits Sensorium / Orientation: awake, alert, oriented to person, oriented to place and oriented to time Psych affect normal Appearance: grossly normal, appropriate and well kempt Attitude: calm and engaged Activity / Motor Behavior: appropriate eye contact Speech: normal speech Thought Process: normal thought process Attention / Concentration: attention grossly intact Insight: insight good Debridement Note Debridement Note Wound debrided: Right groin wound, soft tissue radionecrosis Laterality: Right Type of Debridement: Excisional debridement Anesthesia Used: 5% Lidocaine Gel Depth: Down to and including healthy tissue and in the subcutaneous layer Percentage of wound debrided: 100 Instrument Used: 3mm curette Severity: Fat Layer Exposed Amount of bleeding with debridement: Mild Bleeding Controlled with: Compression and gauze Patient tolerated procedure: Patient tolerated procedure well Post-Debridement Measurements and Additional Note: Post-Debridement Measurements/Treatment - Nurse 1 - General Ulcer Assessment Start: 11/08/22 09:10 Freq: Status: Active Protocol: MICHAEL Activity Type Activity Date Activity User E-sign Co-sign Detail Recorded Client Recorded Date Recorded By Document 11/08/22 09:10 DL [id number] 11/08/22 09:16 DL Document 11/15/22 09:29 DL [id number] 11/15/22 09:34 DL 11/08/22 11/15/22 09:10 09:29 - Today's Visit Information Type of service Follow-up Visit Follow-up 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/PATIENT REGISTRATION REPRESENTATIVE (Physician/PATIENT REGISTRATION REPRESENTATIVE ) ) Arrival Mode Ambulatory Ambulatory Transfer Assistance None None Patient Identification Verified (Name & Yes Yes ) Patient Requires Transmission-Based No No Precautions Height and Weight Body Mass Index (BMI) 29.8 29.8 BMI Classification Overweight Overweight Vital Signs Temperature (97.8 F-99.1 F) 96.8 F L 97.1 F L Temperature Source Temporal Temporal Pulse Rate (60-100) 89 82 Pulse Location Monitor Monitor Respiratory Rate (12-18) 20 H 18 Respiratory rate source Observation Observation Blood Pressure (90/60-120/80) 151/80 H 143/77 H Blood Pressure Mean 103 99 Source Monitor Monitor History Since Last Visit- (Skip if this is Patient's initial visit) Have you changed medications since your No No last visit? Any new allergies or adverse reactions No No Had a fall/change in ADL's that may No No increase risk of falls Signs or symptoms of abuse and/or No No neglect since last visit Have you been in the hospital since your No No last visit? Has dressing in place as prescribed Yes Yes Has compression in place as prescribed N/A N/A Has offloadiing in place as prescribed Yes Yes Experienced any changes in pain level or No No management Pain Scale: 0-10 Numeric Is Patient Pain Free? Yes Yes KISHA - Nurse 1 - General Ulcer Measurement Start: 11/08/22 09:10 Freq: Status: Active Protocol: Activity Type Activity Date Activity User E-sign Co-sign Detail Recorded Client Recorded Date Recorded By Document 11/08/22 09:10 DL [id number] 11/08/22 09:16 DL Document 11/15/22 09:29 DL [id number] 11/15/22 09:34 DL 11/08/22 11/15/22 09:10 09:29 Wound Center Nurse 1 #11 R Groin -Current Size (cm) - Length 2.4 2.5 -Current Size (cm) - Width 0.8 0.8 -Current Size (cm) - Depth 0.6 0.5 -Total Square Cm 1.92 2.00 -Photo Taken No Yes -Exudate Amt Small Medium -Exudate Type Serosanguineous Serosanguineous -Wound Margin Thickened Thickened & Rolled Under -Granulation Amt Medium (34-66%) Medium (34-66%) -Granulation Quality [place] -Necrosis Amt Medium (34-66%) Medium (34-66%) -Necrotic Tissue Type Adherent Slough Adherent Slough -Structure Exposed N/A N/A -Texture (Blanche-wound Skin Appearance) Scarring Scarring -Moisture (Blanche-wound Skin Appearance) Dry/Scaly Dry/Scaly -Color (Blanche-wound Skin Appearance) No Abnormality No Abnormality -Temperature (Blanche-wound Skin No Abnormality Appearance) (Pt Warm) -Tenderness on Palpation (Blanche-wound No No Skin Appearance) -Ulcer Cleansing Rinsed/ Rinsed/ Irrigated with Irrigated with Saline Saline -Foul Odor after Cleansing No No -Anesthetic Used 4% Lidocaine 4% Lidocaine Solution Solution KISHA - Nurse 2 - General Ulcer CM Notes Start: 11/08/22 09:10 Freq: Status: Active Protocol: Activity Type Activity Date Activity User E-sign Co-sign Detail Recorded Client Recorded Date Recorded By Document 11/08/22 11:52 PL [id number] 11/08/22 11:53 PL 11/08/22 11:52 Wound Center Nurse 2 -Time 09:37 -Correct Patient Yes -Correct Side, Site, Position Yes -Correct Procedure Yes -Procedure Performed Yes -Type of Procedure Debridement -Clinical Debridement Subcutaneous -Tissue Removed Subcutaneous -Post Debridement (cm) - Length 2.4 -Post Debridement (cm) - Width 0.8 -Post Debridement (cm) - Depth 0.6 -Total Square (Post) (cm) 1.92 -Area of Debridement (cm) - Length 2.4 -Area of Debridement (cm) - Width 0.8 -Total Square (Area) (cm) 1.92 -Tunneling No -Undermining/Tunneling No -Circular Undermining No -Wound/Ulcer Outcome Not Healed -Ulcer Cleansing Rinsed/ Irrigated with Saline -Foul Odor after Cleansing No -Bioengineered Tissue No -Bleeding Controlled with Pressure -Treatment Response Procedure Tolerated Well -Debridement - Subq, 1st 20sq cm Yes Pain Scale: 0-10 Numeric Is Patient Pain Free? Yes - Nurse 3 - General Ulcer D/C NN Start: 11/08/22 09:10 Freq: Status: Active Protocol: Activity Type Activity Date Activity User E-sign Co-sign Detail Recorded Client Recorded Date Recorded By Document 11/08/22 09:41 DL [id number] 11/08/22 09:43 DL Document 11/15/22 09:51 MW [id number] 11/15/22 09:52 MW 11/08/22 11/15/22 09:41 09:51 Wound Care Center Nurse 3 #11 R Groin -Ulcer Cleansing Wound Cleanser Rinsed/ Irrigated with Saline -Foul Odor after Cleansing No No -Negative Pressure Wound Therapy N/A -Primary Dressing Applied Aquacel AG 4x4 -Other Dressing aquacel ag -Primary Dressing Covered/Secured with Dry Gauze, Dry Gauze, Secured with Secured with Tape Tape -Aquacel AG 4x4 1 Treatment Response Procedure Procedure Tolerated Well Tolerated Well Pain Scale: 0-10 Numeric Is Patient Pain Free? Yes Yes Teaching: Wound Center Dressing Your Wound -Person Taught Patient -Teaching Method Discussion, Demonstration -Response to teaching Verbalize understanding WC - Visit Discharge Discharge Condition Stable Stable Ambulatory Status Ambulatory Ambulatory Transportation Private Auto Private Auto Accompanied by self Medication Reconcilliation completed & No provided to patient/care provider Clinical Summary of Care Provided Yes Assessment/Plan Assessment/Plan (1) soft tissue radiation injury: (2) Radiation injury: CODE(S): T66.XXXA - Radiation sickness, unspecified, initial encounter QUALIFIERS: Encounter type: subsequent encounter Qualified Code(s): T66.XXXD - Radiation sickness, unspecified, subsequent encounter (3) History of melanoma: CODE(S): Z85.820 - Personal history of malignant melanoma of skin PLAN: Plan We have considered additional options in the patient's management, as the progress of her right groin wound, related to radiation injury, has been slow. The patient has shown very little progress in recent weeks. We have recently implemented the use of Pentoxifylline orally. Pentoxifylline has merit in the treatment of venous stasis ulcerations. Its use is documented in the literature. It is an off label indication. Similarly, literature exists in support of the use of Pentoxifylline in the treatment of soft tissue radiation injuries. She has been advised that the use of this medication is an off-label indication. It appears as though the medication is relatively inexpensive, and the risk of adverse reactions appears to be low. The indications and risks of the medication, and the potential benefits, have been discussed with the patient in detail. The patient's questions have been answered. Pentoxifylline 400 mg has been prescribed, to be taken on a 3 times daily basis. The benefits of the medication will be assessed during the patient's subsequent serial follow-up visits. Two EpiFix allografts have been recently placed. However, the development of increased drainage has aroused concern as to developing infection. Swab cultures were obtained recently, and the results have indicated the presence of Staphylococcus aureus, Staphylococcus capitis, Prevotella disiens, and another anaerobic cocci. Therefore, the patient was started on Augmentin 875 mg p.o. twice daily for a total of 10 days. We are to continue the use of Aquacel silver, which will be placed topically on a daily basis. We have recently discussed other options, which have been considered by the patient in the past. These options include referral to a tertiary care center for consideration of myocutaneous flap reconstruction of the involved area. However, the described potential complications and needed rehabilitation have given the patient reservations about proceeding with such aggressive management. The patient is to return in 2 weeks for reassessment. Total time: 24 minutes
[2022-11-29 09:37] VITALS: BP 179/88; PULSE 83; RESP 16; TEMP 35.8; BMI 29.8
--- NOTE | 2022-11-29 13:30 | PCM.WC.HP ---
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 The patient was diagnosed with melanoma of the right calf in the 1969's. The melanoma was metastatic to lymph nodes. The patient underwent excision of her melanoma with lymphadenectomy in the right groin. She also underwent lengthy radiation treatments at the [facility] in [place], [place]. Melanoma recurred, and the patient was subsequently treated with monoclonal antibodies in 1984. 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 Treatment included local ulcer care and hyperbaric oxygen therapy. She underwent a total of nearly 90 treatments of hyperbaric oxygen therapy. It is known that she tolerated the therapies well, and derived significant benefit. 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 She has also undergone several more sessions of hyperbaric oxygen therapy. She also received a series of 10 EpiFix allografts in the course of previous treatment. Each of the patient's prior courses of treatment in our facility have been protracted, with difficulties encountered in achieving complete healing. Her most recent course of treatment ended with successful healing and discharge in February 2021. The patient presented at this time with a recurrence of her right groin ulceration, again thought to be secondary to soft tissue radiation injury. The ulceration recurred spontaneously approximately 2-3 weeks prior to her presentation. The patient indicates that her health history has not changed since she was last treated in our facility. [facility] Medical History Bilateral cataracts Cancer Hemorrhoids Knee pain Radiation injury Home Medications famotidine 20 mg tablet 20 mg PO 06/20/17 [History Last Taken Unknown] pravastatin 20 mg tablet 20 mg PO DAILY 06/20/17 [History Last Taken Unknown] famotidine 40 mg tablet PO 90 days ##90 12/26/17 [History Last Taken Unknown] pravastatin 20 mg tablet PO 90 days ##90 12/26/17 [History Last Taken Unknown] Allergy/AdvReac Type Severity Reaction Status Date / Time No Known Allergies Allergy Verified 02/15/22 09:08 Family History Other Heart disease Hypertension Surgical History Hx of AKA (above knee amputation) Social History Smoking Status: Former smoker alcohol intake: current alcohol intake frequency: holidays/special occasions only Vital Signs Vital Signs Vital Signs: 11/29/22 09:37 Temperature 96.5 F L Temperature Source Temporal Pulse Rate 83 Respiratory Rate 16 Blood Pressure 179/88 H Blood Pressure Mean 118 Blood Pressure Source Monitor Blood Pressure Position Sitting Blood Pressure Location Left Arm Oxygen Delivery Method Room Air Weight Weight: 196 lb 1.696 oz Body Mass Index (BMI) 29.8 Physical Exam Const alert, oriented x3, no apparent distress and well nourished General Appearance: cooperative, comfortable, well kempt and well developed Orientation / Consciousness: awake, oriented to person, oriented to place and oriented to time HEENT normocephalic, head/scalp atraumatic and hearing grossly normal bilaterally HEENT Narrative: Able to visualize her ear tubes bilaterally. Right tube appears to be shifting out of TM. Head and Scalp: normal to inspection, normocephalic and atraumatic Face and Sinus: normal facial exam External Ear: external ears normal Eyes EOMs intact bilaterally General Eye: normal appearance of both eyes Resp normal respiratory effort, normal air movement, no retractions and no use of accessory muscles Effort and Inspection: able to speak in complete sentences Cardio regular rate and regular rhythm Skin Wound Narrative: A well-healed right above-knee amputation stump is noted. An ulceration persists in the patient's right groin. There is a small amount of bioburden and nonviable tissue present. Dimensions are documented elsewhere. There has been little change in the appearance of the ulceration in recent weeks. There is no sign of infection or cellulitis. Neuro oriented x3, CN's II-XII intact bilaterally, moves all extremities and no focal motor deficits Sensorium / Orientation: awake, alert, oriented to person, oriented to place and oriented to time Psych affect normal Appearance: grossly normal, appropriate and well kempt Attitude: calm and engaged Activity / Motor Behavior: appropriate eye contact Speech: normal speech Thought Process: normal thought process Attention / Concentration: attention grossly intact Insight: insight good Debridement Note Debridement Note Wound debrided: Right groin wound, soft tissue radionecrosis Laterality: Right Type of Debridement: Excisional debridement Anesthesia Used: 5% Lidocaine Gel Depth: Down to and including healthy tissue and in the subcutaneous layer Percentage of wound debrided: 100 Instrument Used: 3mm curette Severity: Fat Layer Exposed Amount of bleeding with debridement: Mild Bleeding Controlled with: Compression and gauze Patient tolerated procedure: Patient tolerated procedure well Debridement Free Text: Following a routine excisional debridement, which was well-tolerated by the patient, an EpiFix allograft was placed topically. A 2 cm x 2 cm allograft was selected, and was used in its entirety as a topical application. The EpiFix allograft was removed from its sterile packaging, and was applied topically in the appropriate orientation. The allograft was then bolstered with gauze, over which Adaptic Touch was applied. Steri-Strips were then used to anchor the entire site. This represents the third such allograft application. Post-Debridement Measurements and Additional Note: Post-Debridement Measurements/Treatment - Nurse 1 - General Ulcer Assessment Start: 11/08/22 09:10 Freq: Status: Active Protocol: WC.XOCHITL Activity Type Activity Date Activity User E-sign Co-sign Detail Recorded Client Recorded Date Recorded By Document 11/08/22 09:10 DL [id number] 11/08/22 09:16 DL Document 11/15/22 09:29 [id number] 11/15/22 09:34 DL Document 11/29/22 09:37 [facility] [id number] 11/29/22 09:45 [facility] 11/08/22 11/15/22 11/29/22 09:10 09:29 09:37 - Today's Visit Information Type of service Follow-up Visit Follow-up Visit Follow-up 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/TEXTILE CHEMIST (Physician/TEXTILE CHEMIST (Physician/TEXTILE CHEMIST ) ) ) Arrival Mode Ambulatory Ambulatory Ambulatory Transfer Assistance None None None Patient Identification Verified (Name & Yes Yes Yes ) Patient Requires Transmission-Based No No No Precautions Height and Weight Body Mass Index (BMI) 29.8 29.8 29.8 BMI Classification Overweight Overweight Overweight Vital Signs Temperature (97.8 F-99.1 F) 96.8 F L 97.1 F L 96.5 F L Temperature Source Temporal Temporal Temporal Pulse Rate (60-100) 89 82 83 Pulse Location Monitor Monitor Monitor Respiratory Rate (12-18) 20 H 18 16 Respiratory rate source Observation Observation Observation Oxygen Delivery Method Room Air Blood Pressure (90/60-120/80) 151/80 H 143/77 H 179/88 H Blood Pressure Mean 103 99 118 Source Monitor Monitor Monitor Position Sitting Blood Pressure Location Left Arm History Since Last Visit- (Skip if this is Patient's initial visit) Have you changed medications since your No No No last visit? Any new allergies or adverse reactions No No No Had a fall/change in ADL's that may No No No increase risk of falls Signs or symptoms of abuse and/or No No No neglect since last visit Have you been in the hospital since your No No No last visit? Has dressing in place as prescribed Yes Yes Yes Has compression in place as prescribed N/A N/A N/A Has offloadiing in place as prescribed Yes Yes N/A Experienced any changes in pain level or No No No management Left Footwear Regular Shoe Right Footwear Regular Shoe Pain Scale: 0-10 Numeric Is Patient Pain Free? Yes Yes Yes WC - Nurse 1 - General Ulcer Measurement Start: 11/08/22 09:10 Freq: Status: Active Protocol: Activity Type Activity Date Activity User E-sign Co-sign Detail Recorded Client Recorded Date Recorded By Document 11/08/22 09:10 DL [id number] 11/08/22 09:16 DL Document 11/15/22 09:29 DL [id number] 11/15/22 09:34 DL Document 11/29/22 09:37 [facility] [id number] 11/29/22 09:45 BMF 11/08/22 11/15/22 11/29/22 09:10 09:29 09:37 Wound Center Nurse 1 #11 R Groin -Combined with other wound No -Current Size (cm) - Length 2.4 2.5 2.3 -Current Size (cm) - Width 0.8 0.8 0.8 -Current Size (cm) - Depth 0.6 0.5 0.6 -Total Square Cm 1.92 2.00 1.84 -Date of Last Picture (Recall this 11/29/22 field) -Photo Taken No Yes Yes -Epithelialization None Present -Tunneling No -Undermining/Tunneling Yes -Undermining/Tunneling Starts (O'clock 6 ) -Undermining/Tunneling Ends (O'clock) 10 -Maximum Distance (cm) 0.5 -Circular Undermining No -Exudate Amt Small Medium Small -Exudate Type Serosanguineous Serosanguineous Serous -Wound Margin Thickened Thickened & Thickened Rolled Under -Granulation Amt Medium (34-66%) Medium (34-66%) Large (67-100%) -Granulation Quality Lockland Lockland Lock[place] -Slough/Fibrin Yes -Necrosis Amt Medium (34-66%) Medium (34-66%) Small (1-33%) -Necrotic Tissue Type Adherent Slough Adherent Slough -Structure Exposed N/A N/A -Texture (Blanche-wound Skin Appearance) Scarring Scarring Assessed, Scarring -Moisture (Blanche-wound Skin Appearance) Dry/Scaly Dry/Scaly Assessed -Color (Blanche-wound Skin Appearance) No Abnormality No Abnormality Assessed -Temperature (Blanche-wound Skin No Abnormality No Abnormality Appearance) (Pt Warm) (Pt Warm) -Tenderness on Palpation (Blanche-wound No No No Skin Appearance) -Ulcer Cleansing Rinsed/ Rinsed/ Rinsed/ Irrigated with Irrigated with Irrigated with Saline Saline Saline -Foul Odor after Cleansing No No No -Anesthetic Used 4% Lidocaine 4% Lidocaine 4% Lidocaine Solution Solution Solution WC - Nurse 2 - General Ulcer CM Notes Start: 11/08/22 09:10 Freq: Status: Active Protocol: Activity Type Activity Date Activity User E-sign Co-sign Detail Recorded Client Recorded Date Recorded By Document 11/08/22 11:52 PL [id number] 11/08/22 11:53 PL Document 11/15/22 10:13 PL [id number] 11/15/22 10:14 PL 11/08/22 11/15/22 11:52 10:13 Wound Center Nurse 2 #11 R Groin -Time 09:37 09:40 -Correct Patient Yes Yes -Correct Side, Site, Position Yes Yes -Correct Procedure Yes Yes -Procedure Performed Yes Yes -Type of Procedure Debridement Debridement -Clinical Debridement Subcutaneous Subcutaneous -Tissue Removed Subcutaneous Subcutaneous -Post Debridement (cm) - Length 2.4 2.5 -Post Debridement (cm) - Width 0.8 0.8 -Post Debridement (cm) - Depth 0.6 0.5 -Total Square (Post) (cm) 1.92 2.00 -Area of Debridement (cm) - Length 2.4 0.8 -Area of Debridement (cm) - Width 0.8 0.5 -Total Square (Area) (cm) 1.92 0.40 -Tunneling No No -Undermining/Tunneling No No -Circular Undermining No No -Wound/Ulcer Outcome Not Healed Not Healed -Ulcer Cleansing Rinsed/ Rinsed/ Irrigated with Irrigated with Saline Saline -Foul Odor after Cleansing No No -Bioengineered Tissue No No -Bleeding Controlled with Pressure Pressure -Treatment Response Procedure Procedure Tolerated Well Tolerated Well -Debridement - Subq, 1st 20sq cm Yes Yes Pain Scale: 0-10 Numeric Is Patient Pain Free? Yes Yes - Nurse 3 - General Ulcer D/C NN Start: 11/08/22 09:10 Freq: Status: Active Protocol: Activity Type Activity Date Activity User E-sign Co-sign Detail Recorded Client Recorded Date Recorded By Document 11/08/22 09:41 DL [id number] 11/08/22 09:43 DL Document 11/15/22 09:51 MW [id number] 11/15/22 09:52 MW Document 11/29/22 10:18 [facility] [id number] 11/29/22 10:19 [facility] 11/08/22 11/15/22 11/29/22 09:41 09:51 10:18 Wound Care Center Nurse 3 #11 R Groin -Ulcer Cleansing Wound Cleanser Rinsed/ Irrigated with Saline -Foul Odor after Cleansing No No -Negative Pressure Wound Therapy N/A -Primary Dressing Applied Aquacel AG 4x4 -Other Dressing aquacel ag EPIFIX -Primary Dressing Covered/Secured with Dry Gauze, Dry Gauze, Dry Gauze, Secured with Secured with Secured with Tape Tape Tape -Aquacel AG 4x4 1 Treatment Response Procedure Procedure Procedure Tolerated Well Tolerated Well Tolerated Well Pain Scale: 0-10 Numeric Is Patient Pain Free? Yes Yes Yes Teaching: Wound Center Dressing Your Wound -Person Taught Patient -Teaching Method Discussion, Demonstration -Response to teaching Verbalize understanding WC - Visit Discharge Discharge Condition Stable Stable Stable Ambulatory Status Ambulatory Ambulatory Ambulatory Transportation Private Auto Private Auto Private Auto Accompanied by self Medication Reconcilliation completed & No provided to patient/care provider Clinical Summary of Care Provided Yes Assessment/Plan Assessment/Plan (1) soft tissue radiation injury: (2) Radiation injury: CODE(S): T66.XXXA - Radiation sickness, unspecified, initial encounter QUALIFIERS: Encounter type: subsequent encounter Qualified Code(s): T66.XXXD - Radiation sickness, unspecified, subsequent encounter (3) History of melanoma: CODE(S): Z85.820 - Personal history of malignant melanoma of skin PLAN: Plan We have considered additional options in the patient's management, as the progress of her right groin wound, related to radiation injury, has been slow. The patient has shown very little progress in recent weeks. We have recently implemented the use of Pentoxifylline orally. Pentoxifylline has merit in the treatment of venous stasis ulcerations. Its use is documented in the literature. It is an off label indication. Similarly, literature exists in support of the use of Pentoxifylline in the treatment of soft tissue radiation injuries. She has been advised that the use of this medication is an off-label indication. It appears as though the medication is relatively inexpensive, and the risk of adverse reactions appears to be low. The indications and risks of the medication, and the potential benefits, have been discussed with the patient in detail. The patient's questions have been answered. Pentoxifylline 400 mg has been prescribed, to be taken on a 3 times daily basis. The benefits of the medication will be assessed during the patient's subsequent serial follow-up visits. Two EpiFix allografts have been recently placed. After some delay, the third such EpiFix allograft was applied today. Several weeks have transpired since the last allograft application. The lapse has occurred as a result of documented infection at the site of the patient's right groin wound. Cultures were obtained several weeks ago, at which time the wound appeared somewhat reddened and erythematous, with increasing amounts of drainage. Cultures subsequently revealed the presence of Staphylococcus aureus, Staphylococcus capitis, and Prevotella disiens, and an anaerobic cocci. The patient was started on Augmentin 875 mg p.o. twice daily for a total of 10 days, which has now been completed. At this time, following the complete treatment of the wound infection, we have resumed the use of a skin substitute, having placed an EpiFix allograft today. The patient will be out of town next week, and is to return in 2 weeks for reassessment. She is to do her best to maintain the allograft and its overlying dressing until she returns. We have recently discussed other options, which have been considered by the patient in the past. These options include referral to a tertiary care center for consideration of myocutaneous flap reconstruction of the involved area. However, the described potential complications and needed rehabilitation have given the patient reservations about proceeding with such aggressive management. The patient is to return in 2 weeks for reassessment. Total time: 26 minutes
== END 2022-12-07 23:59 | disposition home or self-care (01) ==
LOC: WC 09:15
PROVIDERS: PCP Family Medicine; Visit Provider Surgery
DX: T66.XXXD Radiation sickness, unspecified, subsequent encounter (principal); L97.112 Non-pressure chronic ulcer of right thigh with fat layer exposed; Z87.891 Personal history of nicotine dependence; Z92.3 Personal history of irradiation; Z85.820 Personal history of malignant melanoma of skin
CPT/HCPCS: 11042; 15271; Q4186

== ENCOUNTER 2023-01-03 09:30 | Outpatient (RCR) | payer MEDICARE, OTHER, SELFPAY ==
[2022-12-08 00:25] VITALS: BP 179/88; PULSE 83; RESP 16; TEMP 35.8; BMI 29.8
[2022-12-13 09:19] VITALS: BP 150/79; PULSE 83; RESP 20; TEMP 36.2; BMI 29.8
--- NOTE | 2022-12-13 10:10 | PCM.WC.HP ---
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 The patient was diagnosed with melanoma of the right calf in the 1969's. The melanoma was metastatic to lymph nodes. The patient underwent excision of her melanoma with lymphadenectomy in the right groin. She also underwent lengthy radiation treatments at the [facility] in [place], [place]. Melanoma recurred, and the patient was subsequently treated with monoclonal antibodies in 1984. However, due to the presence of severe radiation injury, persisting open wounds in the right thigh, MRSA infection, and severe radiation injury to the right femoral artery, the patient subsequently required right above-knee amputation in 2002. 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 Treatment included local ulcer care and hyperbaric oxygen therapy. She underwent a total of nearly 90 treatments of hyperbaric oxygen therapy. It is known that she tolerated the therapies well, and derived significant benefit. 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 She has also undergone several more sessions of hyperbaric oxygen therapy. She also received a series of 10 EpiFix allografts in the course of previous treatment. Each of the patient's prior courses of treatment in our facility have been protracted, with difficulties encountered in achieving complete healing. Her most recent course of treatment ended with successful healing and discharge in February 2021. The patient presented at this time with a recurrence of her right groin ulceration, again thought to be secondary to soft tissue radiation injury. The ulceration recurred spontaneously approximately 2-3 weeks prior to her presentation. The patient indicates that her health history has not changed since she was last treated in our facility. [facility] Medical History (Updated 12/13/22 @ 10:[address] Bassam De Jesus MD) Bilateral cataracts Cancer Hemorrhoids Knee pain Radiation injury Soft tissue radionecrosis Home Medications famotidine 20 mg tablet 20 mg PO 06/20/17 [History Last Taken Unknown] pravastatin 20 mg tablet 20 mg PO DAILY 06/20/17 [History Last Taken Unknown] famotidine 40 mg tablet PO 90 days ##90 06/19/18 [History Last Taken Unknown] pravastatin 20 mg tablet PO 90 days ##90 12/26/17 [History Last Taken Unknown] Allergy/AdvReac Type Severity Reaction Status Date / Time No Known Allergies Allergy Verified 02/15/22 09:08 Family History Other Heart disease Hypertension Surgical History Hx of AKA (above knee amputation) Social History Smoking Status: Former smoker alcohol intake: current alcohol intake frequency: holidays/special occasions only Vital Signs Vital Signs Vital Signs: 12/13/22 09:19 Temperature 97.1 F L Temperature Source Temporal Pulse Rate 83 Respiratory Rate 20 H Blood Pressure 150/79 H Blood Pressure Mean 102 Blood Pressure Source Monitor Weight Weight: 196 lb 1.696 oz Body Mass Index (BMI) 29.8 Physical Exam Const alert, oriented x3, no apparent distress and well nourished General Appearance: cooperative, comfortable, well kempt and well developed Orientation / Consciousness: awake, oriented to person, oriented to place and oriented to time HEENT normocephalic, head/scalp atraumatic and hearing grossly normal bilaterally HEENT Narrative: Able to visualize her ear tubes bilaterally. Right tube appears to be shifting out of TM. Head and Scalp: normal to inspection, normocephalic and atraumatic Face and Sinus: normal facial exam External Ear: external ears normal Eyes EOMs intact bilaterally General Eye: normal appearance of both eyes Resp normal respiratory effort, normal air movement, no retractions and no use of accessory muscles Effort and Inspection: able to speak in complete sentences Cardio regular rate and regular rhythm Skin Wound Narrative: A well-healed right above-knee amputation stump is noted. An ulceration persists in the patient's right groin. There is a small amount of bioburden and nonviable tissue present. Dimensions are documented elsewhere. There has been little change in the appearance of the ulceration in recent weeks. There is no sign of infection or cellulitis. Neuro oriented x3, CN's II-XII intact bilaterally, moves all extremities and no focal motor deficits Sensorium / Orientation: awake, alert, oriented to person, oriented to place and oriented to time Psych affect normal Appearance: grossly normal, appropriate and well kempt Attitude: calm and engaged Activity / Motor Behavior: appropriate eye contact Speech: normal speech Thought Process: normal thought process Attention / Concentration: attention grossly intact Insight: insight good Debridement Note Debridement Note Wound debrided: Right groin wound, soft tissue radionecrosis Laterality: Right Type of Debridement: Excisional debridement Anesthesia Used: 5% Lidocaine Gel Depth: Down to and including healthy tissue and in the subcutaneous layer Percentage of wound debrided: 100 Instrument Used: 3mm curette Severity: Fat Layer Exposed Amount of bleeding with debridement: Mild Bleeding Controlled with: Compression and gauze Patient tolerated procedure: Patient tolerated procedure well Debridement Free Text: Following a routine excisional debridement, which was well-tolerated by the patient, an EpiFix allograft was placed topically. A 2 cm x 2 cm allograft was selected, and was used in its entirety as a topical application. The EpiFix allograft was removed from its sterile packaging, and was applied topically in the appropriate orientation. The allograft was then bolstered with gauze, over which Wound Veil was applied. The Wound Veil was then secured using Dermabond. This represents the 4th such allograft application. Post-Debridement Measurements and Additional Note: Post-Debridement Measurements/Treatment - Nurse 1 - General Ulcer Assessment Start: 12/13/22 09:19 Freq: Status: Active Protocol: KISHA.XOCHITL Activity Type Activity Date Activity User E-sign Co-sign Detail Recorded Client Recorded Date Recorded By Document 12/13/22 09:19 DL [id number] 12/13/22 09:26 DL 12/13/22 09:19 - Today's Visit Information Type of service Follow-up 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/HOSTED SERVICES ANALYST ) Arrival Mode Ambulatory, Crutches Transfer Assistance None Patient Identification Verified (Name & Yes ) Patient Requires Transmission-Based No Precautions Height and Weight Body Mass Index (BMI) 29.8 BMI Classification Overweight Vital Signs Temperature (97.8 F-99.1 F) 97.1 F L Temperature Source Temporal Pulse Rate (60-100) 83 Pulse Location Monitor Respiratory Rate (12-18) 20 H Respiratory rate source Observation Blood Pressure (90/60-120/80) 150/79 H Blood Pressure Mean 102 Source Monitor History Since Last Visit- (Skip if this is Patient's initial visit) Have you changed medications since your No last visit? Any new allergies or adverse reactions No Had a fall/change in ADL's that may No increase risk of falls Signs or symptoms of abuse and/or No neglect since last visit Have you been in the hospital since your No last visit? Has dressing in place as prescribed Yes Has compression in place as prescribed Yes Has offloadiing in place as prescribed Yes Experienced any changes in pain level or No management Pain Scale: 0-10 Numeric Is Patient Pain Free? Yes WC - Nurse 1 - General Ulcer Measurement Start: 12/13/22 09:19 Freq: Status: Active Protocol: Activity Type Activity Date Activity User E-sign Co-sign Detail Recorded Client Recorded Date Recorded By Document 12/13/22 09:19 DL [id number] 12/13/22 09:26 DL 12/13/22 09:19 Wound Center Nurse 1 #11 R Groin -Current Size (cm) - Length 2.5 -Current Size (cm) - Width 1 -Current Size (cm) - Depth 0.5 -Total Square Cm 2.5 -Exudate Amt Small -Exudate Type Serosanguineous -Wound Margin Thickened & Rolled Under -Granulation Amt Medium (34-66%) -Granulation Quality [place] -Necrosis Amt Medium (34-66%) -Necrotic Tissue Type Adherent Slough -Structure Exposed N/A -Texture (Blanche-wound Skin Appearance) Scarring -Moisture (Blanche-wound Skin Appearance) Dry/Scaly -Color (Blanche-wound Skin Appearance) No Abnormality -Temperature (Blanche-wound Skin No Abnormality Appearance) (Pt Warm) -Tenderness on Palpation (Blanche-wound No Skin Appearance) -Ulcer Cleansing Rinsed/ Irrigated with Saline -Foul Odor after Cleansing No -Anesthetic Used 4% Lidocaine Solution Assessment/Plan Assessment/Plan (1) Soft tissue radionecrosis: CODE(S): L59.8 - Other specified disorders of the skin and subcutaneous tissue related to radiation; Y84.2 - Radiological procedure and radiotherapy as the cause of abnormal reaction of the patient, or of later complication, without mention of misadventure at the time of the procedure (2) soft tissue radiation injury: (3) Radiation injury: CODE(S): T66.XXXA - Radiation sickness, unspecified, initial encounter QUALIFIERS: Encounter type: subsequent encounter Qualified Code(s): T66.XXXD - Radiation sickness, unspecified, subsequent encounter (4) History of melanoma: CODE(S): Z85.820 - Personal history of malignant melanoma of skin PLAN: Plan We have considered additional options in the patient's management, as the progress of her right groin wound, related to radiation injury, has been slow. The patient has shown very little progress in recent weeks. We have recently implemented the use of Pentoxifylline orally. Pentoxifylline has merit in the treatment of venous stasis ulcerations. Its use is documented in the literature. It is an off label indication. Similarly, literature exists in support of the use of Pentoxifylline in the treatment of soft tissue radiation injuries. She has been advised that the use of this medication is an off-label indication. It appears as though the medication is relatively inexpensive, and the risk of adverse reactions appears to be low. The indications and risks of the medication, and the potential benefits, have been discussed with the patient in detail. The patient's questions have been answered. Pentoxifylline 400 mg has been prescribed, to be taken on a 3 times daily basis. The benefits of the medication will be assessed during the patient's subsequent serial follow-up visits. Three EpiFix allografts have been recently placed. The 4th such EpiFix allograft was applied today. Several weeks have transpired since the last allograft application. The lapse has occurred as a result of documented infection at the site of the patient's right groin wound. Cultures were obtained several weeks ago, at which time the wound appeared somewhat reddened and erythematous, with increasing amounts of drainage. Cultures subsequently revealed the presence of Staphylococcus aureus, Staphylococcus capitis, and Prevotella disiens, and an anaerobic cocci. The patient was started on Augmentin 875 mg p.o. twice daily for a total of 10 days, which has now been completed. At this time, following the complete treatment of the wound infection, we have resumed the use of a skin substitute, having placed an EpiFix allograft today. The patient will be out of town next week, and is to return in 2 weeks for reassessment. She is to do her best to maintain the allograft and its overlying dressing until she returns. We have recently discussed other options, which have been considered by the patient in the past. These options include referral to a tertiary care center for consideration of myocutaneous flap reconstruction of the involved area. However, the described potential complications and needed rehabilitation have given the patient reservations about proceeding with such aggressive management. The patient is to return in 2 weeks for reassessment. Total time: 28 minutes
[2022-12-27 09:40] VITALS: BP 140/77; PULSE 81; TEMP 36.2; BMI 29.8
--- NOTE | 2022-12-27 11:49 | PCM.WC.HP ---
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 The patient was diagnosed with melanoma of the right calf in the 1969's. 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 The patient underwent excision of her melanoma with lymphadenectomy in the right groin. She also underwent lengthy radiation treatments at the [facility] in [place], [place]. Melanoma recurred, and the patient was subsequently treated with monoclonal antibodies in 1984. However, due to the presence of severe radiation injury, persisting open wounds in the right thigh, MRSA infection, and severe radiation injury to the right femoral artery, the patient subsequently required right above-knee amputation in 2002. 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 Treatment included local ulcer care and hyperbaric oxygen therapy. She underwent a total of nearly 90 treatments of hyperbaric oxygen therapy. It is known that she tolerated the therapies well, and derived significant benefit. 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 She has also undergone several more sessions of hyperbaric oxygen therapy. She also received a series of 10 EpiFix allografts in the course of previous treatment. Each of the patient's prior courses of treatment in our facility have been protracted, with difficulties encountered in achieving complete healing. Her most recent course of treatment ended with successful healing and discharge in February 2021. The patient presented at this time with a recurrence of her right groin ulceration, again thought to be secondary to soft tissue radiation injury. The ulceration recurred spontaneously approximately 2-3 weeks prior to her presentation. The patient indicates that her health history has not changed since she was last treated in our facility. [facility] Medical History Bilateral cataracts Cancer Hemorrhoids Knee pain Radiation injury Soft tissue radionecrosis Home Medications famotidine 20 mg tablet 20 mg PO 06/20/17 [History Last Taken Unknown] pravastatin 20 mg tablet 20 mg PO DAILY 06/20/17 [History Last Taken Unknown] famotidine 40 mg tablet PO 90 days ##90 06/19/18 [History Last Taken Unknown] pravastatin 20 mg tablet PO 90 days ##90 12/26/17 [History Last Taken Unknown] Allergy/AdvReac Type Severity Reaction Status Date / Time No Known Allergies Allergy Verified 02/15/22 09:08 Family History Other Heart disease Hypertension Surgical History Hx of AKA (above knee amputation) Social History Smoking Status: Former smoker alcohol intake: current alcohol intake frequency: holidays/special occasions only Vital Signs Vital Signs Vital Signs: 12/27/22 09:40 Temperature 97.1 F L Temperature Source Temporal Pulse Rate 81 Blood Pressure 140/77 H Blood Pressure Mean 98 Blood Pressure Source Monitor Weight Weight: 196 lb 1.696 oz Body Mass Index (BMI) 29.8 Physical Exam Const alert, oriented x3, no apparent distress and well nourished General Appearance: cooperative, comfortable, well kempt and well developed Orientation / Consciousness: awake, oriented to person, oriented to place and oriented to time HEENT normocephalic, head/scalp atraumatic and hearing grossly normal bilaterally HEENT Narrative: Able to visualize her ear tubes bilaterally. Right tube appears to be shifting out of TM. Head and Scalp: normal to inspection, normocephalic and atraumatic Face and Sinus: normal facial exam External Ear: external ears normal Eyes EOMs intact bilaterally General Eye: normal appearance of both eyes Resp normal respiratory effort, normal air movement, no retractions and no use of accessory muscles Effort and Inspection: able to speak in complete sentences Cardio regular rate and regular rhythm Skin Wound Narrative: A well-healed right above-knee amputation stump is noted. An ulceration persists in the patient's right groin. There is a small amount of bioburden and nonviable tissue present. Dimensions are documented elsewhere. There has been mild improvement in the appearance of the ulceration in recent weeks. There is no sign of infection or cellulitis. Neuro oriented x3, CN's II-XII intact bilaterally, moves all extremities and no focal motor deficits Sensorium / Orientation: awake, alert, oriented to person, oriented to place and oriented to time Psych affect normal Appearance: grossly normal, appropriate and well kempt Attitude: calm and engaged Activity / Motor Behavior: appropriate eye contact Speech: normal speech Thought Process: normal thought process Attention / Concentration: attention grossly intact Insight: insight good Debridement Note Debridement Note Wound debrided: Right groin wound, soft tissue radionecrosis Laterality: Right Type of Debridement: Excisional debridement Anesthesia Used: 5% Lidocaine Gel Depth: Down to and including healthy tissue and in the subcutaneous layer Percentage of wound debrided: 100 Instrument Used: 3mm curette Severity: Fat Layer Exposed Amount of bleeding with debridement: Mild Bleeding Controlled with: Compression and gauze Patient tolerated procedure: Patient tolerated procedure well Debridement Free Text: Following a routine excisional debridement, which was well-tolerated by the patient, an EpiFix allograft was placed topically. A 2 cm x 2 cm allograft was selected, and was used in its entirety as a topical application. The EpiFix allograft was removed from its sterile packaging, and was applied topically in the appropriate orientation. The allograft was then bolstered with gauze, over which Wound Veil was applied. The Wound Veil was then secured using Dermabond and Steri-Strips. This represents the 5th such allograft application. Post-Debridement Measurements and Additional Note: Post-Debridement Measurements/Treatment - Nurse 1 - General Ulcer Assessment Start: 12/13/22 09:19 Freq: Status: Active Protocol: MICHAEL Activity Type Activity Date Activity User E-sign Co-sign Detail Recorded Client Recorded Date Recorded By Document 12/13/22 09:19 DL [id number] 12/13/22 09:26 DL Document 12/27/22 09:40 AK [id number] 12/27/22 10:51 AK 12/13/22 12/27/22 09:19 09:40 - Today's Visit Information Type of service Follow-up Visit Follow-up 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/ROAD GANG SUPERVISOR (Physician/ROAD GANG SUPERVISOR ) ) Arrival Mode Ambulatory, Ambulatory, Crutches Crutches Transfer Assistance None Patient Identification Verified (Name & Yes Yes ) Patient Requires Transmission-Based No No Precautions Height and Weight Body Mass Index (BMI) 29.8 29.8 BMI Classification Overweight Overweight Vital Signs Temperature (97.8 F-99.1 F) 97.1 F L 97.1 F L Temperature Source Temporal Temporal Pulse Rate (60-100) 83 81 Pulse Location Monitor Monitor Respiratory Rate (12-18) 20 H Respiratory rate source Observation Blood Pressure (90/60-120/80) 150/79 H 140/77 H Blood Pressure Mean 102 98 Source Monitor Monitor History Since Last Visit- (Skip if this is Patient's initial visit) Have you changed medications since your No No last visit? Any new allergies or adverse reactions No No Had a fall/change in ADL's that may No No increase risk of falls Signs or symptoms of abuse and/or No No neglect since last visit Have you been in the hospital since your No No last visit? Has dressing in place as prescribed Yes Yes Has compression in place as prescribed Yes N/A Has offloadiing in place as prescribed Yes Yes Experienced any changes in pain level or No No management Left Footwear Regular Shoe Right Footwear Regular Shoe Pain Scale: 0-10 Numeric Is Patient Pain Free? Yes Yes WC - Nurse 1 - General Ulcer Measurement Start: 12/13/22 09:19 Freq: Status: Active Protocol: Activity Type Activity Date Activity User E-sign Co-sign Detail Recorded Client Recorded Date Recorded By Document 12/13/22 09:19 DL [id number] 12/13/22 09:26 DL Document 12/27/22 09:40 AK [id number] 12/27/22 10:51 AK 12/13/22 12/27/22 09:19 09:40 Wound Center Nurse 1 #11 R Groin -Combined with other wound No -Current Size (cm) - Length 2.5 2.5 -Current Size (cm) - Width 1 1 -Current Size (cm) - Depth 0.5 0.6 -Total Square Cm 2.5 2.5 -Date of Last Picture (Recall this 12/27/22 field) -Photo Taken Yes -Tunneling No -Undermining/Tunneling No -Circular Undermining No -Change in Wound Grade/Stage No -Exudate Amt Small Small -Exudate Type Serosanguineous Serosanguineous -Wound Margin Thickened & Distinct, Rolled Under Outline Attached -Granulation Amt Medium (34-66%) Medium (34-66%) -Granulation Quality [place] -Slough/Fibrin Yes -Necrosis Amt Medium (34-66%) Medium (34-66%) -Necrotic Tissue Type Adherent Slough Adherent Slough -Structure Exposed N/A N/A -Texture (Blanche-wound Skin Appearance) Scarring Assessed, Scarring -Moisture (Blanche-wound Skin Appearance) Dry/Scaly No Abnormality, Assessed -Color (Blanche-wound Skin Appearance) No Abnormality No Abnormality, Assessed -Temperature (Blanche-wound Skin No Abnormality No Abnormality Appearance) (Pt Warm) (Pt Warm) -Tenderness on Palpation (Blanche-wound No No Skin Appearance) -Ulcer Cleansing Rinsed/ Rinsed/ Irrigated with Irrigated with Saline Saline -Foul Odor after Cleansing No No -Anesthetic Used 4% Lidocaine 4% Lidocaine Solution Solution WC - Nurse 2 - General Ulcer CM Notes Start: 12/13/22 09:19 Freq: Status: Active Protocol: Activity Type Activity Date Activity User E-sign Co-sign Detail Recorded Client Recorded Date Recorded By Document 12/13/22 12:04 PL [id number] 12/13/22 12:06 PL Edit Result 12/13/22 12:04 PL (1) [id number] 12/13/22 12:07 PL (1) #11 R Groin - Dermabond => 2 12/13/22 12:04 Wound Center Nurse 2 -Time 10:10 -Correct Patient Yes -Correct Side, Site, Position Yes -Correct Procedure Yes -Procedure Performed Yes -Type of Procedure Debridement -Clinical Debridement Subcutaneous -Tissue Removed Subcutaneous -Post Debridement (cm) - Length 2.5 -Post Debridement (cm) - Width 1.0 -Post Debridement (cm) - Depth 0.5 -Total Square (Post) (cm) 2.50 -Area of Debridement (cm) - Length 2.5 -Area of Debridement (cm) - Width 1.0 -Total Square (Area) (cm) 2.50 -Tunneling No -Undermining/Tunneling No -Circular Undermining No -Wound/Ulcer Outcome Not Healed -Ulcer Cleansing Rinsed/ Irrigated with Saline -Foul Odor after Cleansing No -Bioengineered Tissue Yes -Type of Bioengineered Tissue Epifix -Expiration Date 08/10/27 -Product Lot Number [id number] -Percent Used 100 -Bleeding Controlled with Pressure -Treatment Response Procedure Tolerated Well -Debridement - Subq, 1st 20sq cm No -Apply Skin Sub - 1st 25 sq cm - Legs 1 -Dermabond 2 -Epifix (per sq cm) 4 Pain Scale: 0-10 Numeric Is Patient Pain Free? Yes WC - Nurse 3 - General Ulcer D/C NN Start: 12/13/22 09:19 Freq: Status: Active Protocol: Activity Type Activity Date Activity User E-sign Co-sign Detail Recorded Client Recorded Date Recorded By Document 12/27/22 10:51 HAI [id number] 12/27/22 10:53 HAI 12/27/22 10:51 Wound Care Center Nurse 3 #11 R Groin -Ulcer Cleansing Rinsed/ Irrigated with Saline -Foul Odor after Cleansing No -Negative Pressure Wound Therapy N/A -Primary Dressing Applied Promogran -Primary Dressing Covered/Secured with Dry Gauze, Secured with Tape -Promogran 1 Pain Scale: 0-10 Numeric Is Patient Pain Free? Yes Assessment/Plan Assessment/Plan (1) Soft tissue radionecrosis: CODE(S): L59.8 - Other specified disorders of the skin and subcutaneous tissue related to radiation; Y84.2 - Radiological procedure and radiotherapy as the cause of abnormal reaction of the patient, or of later complication, without mention of misadventure at the time of the procedure (2) soft tissue radiation injury: (3) Radiation injury: CODE(S): T66.XXXA - Radiation sickness, unspecified, initial encounter QUALIFIERS: Encounter type: subsequent encounter Qualified Code(s): T66.XXXD - Radiation sickness, unspecified, subsequent encounter (4) History of melanoma: CODE(S): Z85.820 - Personal history of malignant melanoma of skin PLAN: Plan We have considered additional options in the patient's management relative to the ulceration in the patient's right groin.We have implemented the use of Pentoxifylline orally. Pentoxifylline has merit in the treatment of venous stasis ulcerations. Its use is documented in the literature. It is an off label indication. Similarly, literature exists in support of the use of Pentoxifylline in the treatment of soft tissue radiation injuries. She has been advised that the use of this medication is an off-label indication. It appears as though the medication is relatively inexpensive, and the risk of adverse reactions appears to be low. The indications and risks of the medication, and the potential benefits, have been discussed with the patient in detail. The patient's questions have been answered. Pentoxifylline 400 mg has been prescribed, to be taken on a 3 times daily basis. The benefits of the medication will be assessed during the patient's subsequent serial follow-up visits. Four EpiFix allografts have been recently placed. The 5th such EpiFix allograft was applied today. Two weeks have transpired since the last allograft application. The patient was out of town last week attending to a family matter in [place]. The patient has shown some improvement as result of recent allograft applications, and additional applications are felt to be medically warranted at this time. The fifth such allograft application was applied today, and additional applications are to be considered as the patient continues to follow-up serially. Interruption to the application regimen has occurred as a result of the patient's necessary family commitments, as well as several weeks required for treatment of a documented wound infection. At this time, following the complete treatment of the wound infection, we have resumed the use of a skin substitute, having placed an EpiFix allograft today. We have recently discussed other options, which have been considered by the patient in the past. These options include referral to a tertiary care center for consideration of myocutaneous flap reconstruction of the involved area. However, the described potential complications and needed rehabilitation have given the patient reservations about proceeding with such aggressive management. The patient is to return in 1 week for reassessment. Total time: 26 minutes
[2023-01-03 09:31] VITALS: BP 148/76; PULSE 79; RESP 20; TEMP 36.6; BMI 29.8
[2023-01-03 09:34] VITALS: BP 148/76; PULSE 79; RESP 20; TEMP 36.4; BMI 29.8
--- NOTE | 2023-01-03 13:23 | PCM.WC.HP ---
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 The patient was diagnosed with melanoma of the right calf in the 1969's. The melanoma was metastatic to lymph nodes. The patient underwent excision of her melanoma with lymphadenectomy in the right groin. She also underwent lengthy radiation treatments at the [facility] in [place], [place]. Melanoma recurred, and the patient was subsequently treated with monoclonal antibodies in 1984. However, due to the presence of severe radiation injury, persisting open wounds in the right thigh, MRSA infection, and severe radiation injury to the right femoral artery, the patient subsequently required right above-knee amputation in 2002. 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 Treatment included local ulcer care and hyperbaric oxygen therapy. She underwent a total of nearly 90 treatments of hyperbaric oxygen therapy. It is known that she tolerated the therapies well, and derived significant benefit. 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 She has also undergone several more sessions of hyperbaric oxygen therapy. She also received a series of 10 EpiFix allografts in the course of previous treatment. Each of the patient's prior courses of treatment in our facility have been protracted, with difficulties encountered in achieving complete healing. Her most recent course of treatment ended with successful healing and discharge in February 2021. The patient presented at this time with a recurrence of her right groin ulceration, again thought to be secondary to soft tissue radiation injury. The ulceration recurred spontaneously approximately 2-3 weeks prior to her presentation. The patient indicates that her health history has not changed since she was last treated in our facility. [facility] Medical History Bilateral cataracts Cancer Hemorrhoids Knee pain Radiation injury Soft tissue radionecrosis Home Medications famotidine 20 mg tablet 20 mg PO 06/20/17 [History Last Taken Unknown] pravastatin 20 mg tablet 20 mg PO DAILY 06/20/17 [History Last Taken Unknown] famotidine 40 mg tablet PO 90 days ##90 06/19/18 [History Last Taken Unknown] pravastatin 20 mg tablet PO 90 days ##90 12/26/17 [History Last Taken Unknown] Allergy/AdvReac Type Severity Reaction Status Date / Time No Known Allergies Allergy Verified 02/15/22 09:08 Family History Other Heart disease Hypertension Surgical History Hx of AKA (above knee amputation) Social History Smoking Status: Former smoker alcohol intake: current alcohol intake frequency: holidays/special occasions only Vital Signs Vital Signs Vital Signs: 01/03/23 09:31 01/03/23 09:34 Temperature 97.8 F 97.5 F L Temperature Source Temporal Temporal Pulse Rate 79 79 Respiratory Rate 20 H 20 H Blood Pressure 148/76 H 148/76 H Blood Pressure Mean 100 100 Blood Pressure Source Monitor Monitor Weight Weight: 196 lb 1.696 oz Body Mass Index (BMI) 29.8 Physical Exam Const alert, oriented x3, no apparent distress and well nourished General Appearance: cooperative, comfortable, well kempt and well developed Orientation / Consciousness: awake, oriented to person, oriented to place and oriented to time HEENT normocephalic, head/scalp atraumatic and hearing grossly normal bilaterally HEENT Narrative: Able to visualize her ear tubes bilaterally. Right tube appears to be shifting out of TM. Head and Scalp: normal to inspection, normocephalic and atraumatic Face and Sinus: normal facial exam External Ear: external ears normal Eyes EOMs intact bilaterally General Eye: normal appearance of both eyes Resp normal respiratory effort, normal air movement, no retractions and no use of accessory muscles Effort and Inspection: able to speak in complete sentences Cardio regular rate and regular rhythm Skin Wound Narrative: A well-healed right above-knee amputation stump is noted. An ulceration persists in the patient's right groin. There is a small amount of bioburden and nonviable tissue present. Dimensions are documented elsewhere. There has been only slight improvement in the appearance of the ulceration in recent weeks. There is no sign of infection or cellulitis. Neuro oriented x3, CN's II-XII intact bilaterally, moves all extremities and no focal motor deficits Sensorium / Orientation: awake, alert, oriented to person, oriented to place and oriented to time Psych affect normal Appearance: grossly normal, appropriate and well kempt Attitude: calm and engaged Activity / Motor Behavior: appropriate eye contact Speech: normal speech Thought Process: normal thought process Attention / Concentration: attention grossly intact Insight: insight good Debridement Note Debridement Note Wound debrided: Right groin wound, soft tissue radionecrosis Laterality: Right Type of Debridement: Excisional debridement Anesthesia Used: 5% Lidocaine Gel Depth: Down to and including healthy tissue and in the subcutaneous layer Percentage of wound debrided: 100 Instrument Used: 3mm curette Severity: Fat Layer Exposed Amount of bleeding with debridement: Mild Bleeding Controlled with: Compression and gauze Patient tolerated procedure: Patient tolerated procedure well Post-Debridement Measurements and Additional Note: Post-Debridement Measurements/Treatment WC - Nurse 1 - General Ulcer Assessment Start: 12/13/22 09:19 Freq: Status: Active Protocol: MICHAEL Activity Type Activity Date Activity User E-sign Co-sign Detail Recorded Client Recorded Date Recorded By Document 12/13/22 09:19 DL [id number] 12/13/22 09:26 DL Document 12/27/22 09:40 AK [id number] 12/27/22 10:51 AK Document 01/03/23 09:31 DL [id number] 01/03/23 09:33 DL Document 01/03/23 09:34 DL [id number] 01/03/23 09:41 DL Edit Result 01/03/23 09:34 DL (1) [id number] 01/03/23 09:42 DL (1) Type of service => Follow-up Visit ( => Physician/CADD INSTRUCTOR) Arrival Mode => Ambulatory Transfer Assistance => None Patient Identification Verified (Name & => Yes ) Patient Requires Transmission-Based => No Precautions Temperature (97.8 F-99.1 F) => 97.5 F L Temperature Source => Temporal Pulse Rate (60-100) => 79 Pulse Location => Monitor Respiratory Rate (12-18) => 20 H Respiratory rate source => Observation Blood Pressure (90/60-120/80) => 148/76 H Blood Pressure Mean => 100 Source => Monitor 12/13/22 12/27/22 01/03/23 09:19 09:40 09:31 - Today's Visit Information Type of service Follow-up Visit Follow-up Visit Follow-up 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/CADD INSTRUCTOR (Physician/CADD INSTRUCTOR (Physician/CADD INSTRUCTOR ) ) ) Arrival Mode Ambulatory, Ambulatory, Ambulatory Crutches Crutches Transfer Assistance None None Patient Identification Verified (Name & Yes Yes Yes ) Patient Requires Transmission-Based No No No Precautions Height and Weight Body Mass Index (BMI) 29.8 29.8 29.8 BMI Classification Overweight Overweight Overweight Vital Signs Temperature (97.8 F-99.1 F) 97.1 F L 97.1 F L 97.8 F Temperature Source Temporal Temporal Temporal Pulse Rate (60-100) 83 81 79 Pulse Location Monitor Monitor Monitor Respiratory Rate (12-18) 20 H 20 H Respiratory rate source Observation Observation Blood Pressure (90/60-120/80) 150/79 H 140/77 H 148/76 H Blood Pressure Mean 102 98 100 Source Monitor Monitor Monitor History Since Last Visit- (Skip if this is Patient's initial visit) Have you changed medications since your No No No last visit? Any new allergies or adverse reactions No No No Had a fall/change in ADL's that may No No No increase risk of falls Signs or symptoms of abuse and/or No No No neglect since last visit Have you been in the hospital since your No No No last visit? Has dressing in place as prescribed Yes Yes Yes Has compression in place as prescribed Yes N/A Has offloadiing in place as prescribed Yes Yes Yes Experienced any changes in pain level or No No No management Left Footwear Regular Shoe Right Footwear Regular Shoe Pain Scale: 0-10 Numeric Is Patient Pain Free? Yes Yes Yes 01/03/23 09:34 - Today's Visit Information Type of service Follow-up 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/CADD INSTRUCTOR ) Arrival Mode Ambulatory Transfer Assistance None Patient Identification Verified (Name & Yes ) Patient Requires Transmission-Based No Precautions Height and Weight Body Mass Index (BMI) 29.8 BMI Classification Overweight Vital Signs Temperature (97.8 F-99.1 F) 97.5 F L Temperature Source Temporal Pulse Rate (60-100) 79 Pulse Location Monitor Respiratory Rate (12-18) 20 H Respiratory rate source Observation Blood Pressure (90/60-120/80) 148/76 H Blood Pressure Mean 100 Source Monitor History Since Last Visit- (Skip if this is Patient's initial visit) Have you changed medications since your No last visit? Any new allergies or adverse reactions No Had a fall/change in ADL's that may No increase risk of falls Signs or symptoms of abuse and/or No neglect since last visit Have you been in the hospital since your No last visit? Has dressing in place as prescribed Yes Has compression in place as prescribed Has offloadiing in place as prescribed Yes Experienced any changes in pain level or No management Left Footwear Right Footwear Pain Scale: 0-10 Numeric Is Patient Pain Free? Yes WC - Nurse 1 - General Ulcer Measurement Start: 12/13/22 09:19 Freq: Status: Active Protocol: Activity Type Activity Date Activity User E-sign Co-sign Detail Recorded Client Recorded Date Recorded By Document 12/13/22 09:19 DL [id number] 12/13/22 09:26 DL Document 12/27/22 09:40 AK [id number] 12/27/22 10:51 AK Document 01/03/23 09:34 DL [id number] 01/03/23 09:41 DL 12/13/22 12/27/22 01/03/23 09:19 09:40 09:34 Wound Center Nurse 1 #11 R Groin -Combined with other wound No -Current Size (cm) - Length 2.5 2.5 2.3 -Current Size (cm) - Width 1 1 0.8 -Current Size (cm) - Depth 0.5 0.6 0.5 -Total Square Cm 2.5 2.5 1.84 -Date of Last Picture (Recall this 12/27/22 field) -Photo Taken Yes Yes -Tunneling No -Undermining/Tunneling No -Circular Undermining No -Change in Wound Grade/Stage No -Exudate Amt Small Small Small -Exudate Type Serosanguineous Serosanguineous Serosanguineous -Wound Margin Thickened & Distinct, Thickened & Rolled Under Outline Rolled Under Attached -Granulation Amt Medium (34-66%) Medium (34-66%) Medium (34-66%) -Granulation Quality Alburtis Alburtis Alburtis -Slough/Fibrin Yes -Necrosis Amt Medium (34-66%) Medium (34-66%) Medium (34-66%) -Necrotic Tissue Type Adherent Slough Adherent Slough Adherent Slough -Structure Exposed N/A N/A N/A -Texture (Blanche-wound Skin Appearance) Scarring Assessed, Rash Scarring -Moisture (Blanche-wound Skin Appearance) Dry/Scaly No Abnormality, Dry/Scaly Assessed -Color (Blanche-wound Skin Appearance) No Abnormality No Abnormality, No Abnormality Assessed -Temperature (Blanche-wound Skin No Abnormality No Abnormality No Abnormality Appearance) (Pt Warm) (Pt Warm) (Pt Warm) -Tenderness on Palpation (Blanche-wound No No No Skin Appearance) -Ulcer Cleansing Rinsed/ Rinsed/ Rinsed/ Irrigated with Irrigated with Irrigated with Saline Saline Saline -Foul Odor after Cleansing No No -Anesthetic Used 4% Lidocaine 4% Lidocaine 4% Lidocaine Solution Solution Solution WC - Nurse 2 - General Ulcer CM Notes Start: 12/13/22 09:19 Freq: Status: Active Protocol: Activity Type Activity Date Activity User E-sign Co-sign Detail Recorded Client Recorded Date Recorded By Document 12/13/22 12:04 PL [id number] 12/13/22 12:06 PL Edit Result 12/13/22 12:04 PL (1) [id number] 12/13/22 12:07 PL Document 12/27/22 12:10 PL [id number] 12/27/22 12:12 PL Document 01/03/23 12:19 PL [id number] 01/03/23 12:20 PL (1) #11 R Groin - Dermabond => 2 12/13/22 12/27/22 01/03/23 12:04 12:10 12:19 Wound Center Nurse 2 #11 R Groin -Time 10:10 09:48 09:45 -Correct Patient Yes Yes Yes -Correct Side, Site, Position Yes Yes Yes -Correct Procedure Yes Yes Yes -Procedure Performed Yes Yes Yes -Type of Procedure Debridement Debridement Debridement -Clinical Debridement Subcutaneous Subcutaneous Subcutaneous -Tissue Removed Subcutaneous Subcutaneous Subcutaneous -Post Debridement (cm) - Length 2.5 2.5 2.3 -Post Debridement (cm) - Width 1.0 1.0 0.8 -Post Debridement (cm) - Depth 0.5 0.6 0.5 -Total Square (Post) (cm) 2.50 2.50 1.84 -Area of Debridement (cm) - Length 2.5 2.5 2.3 -Area of Debridement (cm) - Width 1.0 1.0 0.8 -Total Square (Area) (cm) 2.50 2.50 1.84 -Tunneling No No No -Undermining/Tunneling No No No -Circular Undermining No No No -Wound/Ulcer Outcome Not Healed Not Healed Not Healed -Ulcer Cleansing Rinsed/ Rinsed/ Rinsed/ Irrigated with Irrigated with Irrigated with Saline Saline Saline -Foul Odor after Cleansing No No No -Bioengineered Tissue Yes Yes No -Type of Bioengineered Tissue Epifix Epifix -Expiration Date 08/10/27 08/10/27 -Product Lot Number [id number] -Percent Used 100 100 -Bleeding Controlled with Pressure Pressure Pressure -Treatment Response Procedure Procedure Procedure Tolerated Well Tolerated Well Tolerated Well -Debridement - Subq, 1st 20sq cm No No Yes -Apply Skin Sub - 1st 25 sq cm - Legs 1 1 -Dermabond 2 -Epifix (per sq cm) 4 4 Pain Scale: 0-10 Numeric Is Patient Pain Free? Yes Yes Yes WC - Nurse 3 - General Ulcer D/C NN Start: 12/13/22 09:19 Freq: Status: Active Protocol: Activity Type Activity Date Activity User E-sign Co-sign Detail Recorded Client Recorded Date Recorded By Document 12/27/22 10:51 HAI [id number] 12/27/22 10:53 HAI 12/27/22 10:51 Wound Care Center Nurse 3 #11 R Groin -Ulcer Cleansing Rinsed/ Irrigated with Saline -Foul Odor after Cleansing No -Negative Pressure Wound Therapy N/A -Primary Dressing Applied Promogran -Primary Dressing Covered/Secured with Dry Gauze, Secured with Tape -Promogran 1 Pain Scale: 0-10 Numeric Is Patient Pain Free? Yes Assessment/Plan Assessment/Plan (1) Soft tissue radionecrosis: CODE(S): L59.8 - Other specified disorders of the skin and subcutaneous tissue related to radiation; Y84.2 - Radiological procedure and radiotherapy as the cause of abnormal reaction of the patient, or of later complication, without mention of misadventure at the time of the procedure (2) soft tissue radiation injury: (3) Radiation injury: CODE(S): T66.XXXA - Radiation sickness, unspecified, initial encounter QUALIFIERS: Encounter type: subsequent encounter Qualified Code(s): T66.XXXD - Radiation sickness, unspecified, subsequent encounter (4) History of melanoma: CODE(S): Z85.820 - Personal history of malignant melanoma of skin PLAN: Plan We have considered additional options in the patient's management relative to the ulceration in the patient's right groin. We have implemented the use of Pentoxifylline orally. Pentoxifylline has merit in the treatment of venous stasis ulcerations. Its use is documented in the literature. It is an off label indication. Similarly, literature exists in support of the use of Pentoxifylline in the treatment of soft tissue radiation injuries. She has been advised that the use of this medication is an off-label indication. It appears as though the medication is relatively inexpensive, and the risk of adverse reactions appears to be low. The indications and risks of the medication, and the potential benefits, have been discussed with the patient in detail. The patient's questions have been answered. Pentoxifylline 400 mg has been prescribed, to be taken on a 3 times daily basis. The benefits of the medication will be assessed during the patient's subsequent serial follow-up visits. Five EpiFix allografts have been recently placed. We have recently discussed other options, which have been considered by the patient in the past. For now, we are to implement the use of Fibracol, which will be applied by the patient topically on a daily basis. We will consider the use of a Snap VAC, otherwise known as negative pressure wound therapy. Preauthorization for the use of the Snap VAC will be requested. Other options have also been considered, including referral to a tertiary care center for consideration of myocutaneous flap reconstruction of the involved area. However, the described potential complications and needed rehabilitation have given the patient reservations about proceeding with such aggressive management in the past. The patient is to return in 1 week for reassessment. Total time: 28 minutes
== END 2023-01-06 23:59 | disposition home or self-care (01) ==
LOC: WC 09:30
PROVIDERS: PCP Family Medicine; Visit Provider Surgery
DX: L97.112 Non-pressure chronic ulcer of right thigh with fat layer exposed (principal); T66.XXXD Radiation sickness, unspecified, subsequent encounter; Z85.820 Personal history of malignant melanoma of skin; Z92.3 Personal history of irradiation; Z87.891 Personal history of nicotine dependence; Y84.2 Radiological procedure and radiotherapy as the cause of abnormal reaction of the patient, or of later complication, without mention of misadventure at the time of the procedure
CPT/HCPCS: 11042; 15271; Q4186

== ENCOUNTER 2023-01-17 09:15 | Outpatient (RCR) | payer MEDICARE, OTHER, SELFPAY ==
[2023-01-07 00:57] VITALS: BP 148/76; PULSE 79; RESP 20; TEMP 36.4; BMI 29.8
[2023-01-11 13:55] VITALS: BP 149/74; PULSE 84; RESP 18; TEMP 36.5; BMI 29.8
--- NOTE | 2023-01-11 14:25 | HP.PCM_ITS ---
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 The patient was diagnosed with melanoma of the right calf in the 1969's. 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 The patient underwent excision of her melanoma with lymphadenectomy in the right groin. She also underwent lengthy radiation treatments at the [facility] in [place], [place]. Melanoma recurred, and the patient was subsequently treated with monoclonal antibodies in 1984. However, due to the presence of severe radiation injury, persisting open wounds in the right thigh, MRSA infection, and severe radiation injury to the right femoral artery, the patient subsequently required right above-knee amputation in 2002. 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 Treatment included local ulcer care and hyperbaric oxygen therapy. She underwent a total of nearly 90 treatments of hyperbaric oxygen therapy. It is known that she tolerated the therapies well, and derived significant benefit. 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 She has also undergone several more sessions of hyperbaric oxygen therapy. She also received a series of 10 EpiFix allografts in the course of previous treatment. Each of the patient's prior courses of treatment in our facility have been protracted, with difficulties encountered in achieving complete healing. Her most recent course of treatment ended with successful healing and discharge in February 2021. The patient presented at this time with a recurrence of her right groin ulceration, again thought to be secondary to soft tissue radiation injury. The ulceration recurred spontaneously approximately 2-3 weeks prior to her presentation. The patient indicates that her health history has not changed since she was last treated in our facility. [facility] Medical History (Updated 01/11/23 @ 14:[address] 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 Home Medications famotidine 20 mg tablet 20 mg PO 06/20/17 [History Last Taken Unknown] pravastatin 20 mg tablet 20 mg PO DAILY 06/20/17 [History Last Taken Unknown] famotidine 40 mg tablet PO 90 days ##90 12/26/17 [History Last Taken Unknown] pravastatin 20 mg tablet PO 90 days ##90 12/26/17 [History Last Taken Unknown] Allergy/AdvReac Type Severity Reaction Status Date / Time No Known Allergies Allergy Verified 02/15/22 09:08 Family History Other Heart disease Hypertension Surgical History Hx of AKA (above knee amputation) Social History Smoking Status: Former smoker alcohol intake: current alcohol intake frequency: holidays/special occasions only Vital Signs Vital Signs Vital Signs: 01/11/23 13:55 Temperature 97.7 F L Temperature Source Temporal Pulse Rate 84 Respiratory Rate 18 Blood Pressure 149/74 H Blood Pressure Mean 99 Blood Pressure Source Monitor Blood Pressure Position Sitting Blood Pressure Location Left Arm Oxygen Delivery Method Room Air Weight Weight: 196 lb 1.696 oz Body Mass Index (BMI) 29.8 Physical Exam Const alert, oriented x3, no apparent distress and well nourished General Appearance: cooperative, comfortable, well kempt and well developed Orientation / Consciousness: awake, oriented to person, oriented to place and oriented to time HEENT normocephalic, head/scalp atraumatic and hearing grossly normal bilaterally HEENT Narrative: Able to visualize her ear tubes bilaterally. Right tube appears to be shifting out of TM. Head and Scalp: normal to inspection, normocephalic and atraumatic Face and Sinus: normal facial exam External Ear: external ears normal Eyes EOMs intact bilaterally General Eye: normal appearance of both eyes Resp normal respiratory effort, normal air movement, no retractions and no use of accessory muscles Effort and Inspection: able to speak in complete sentences Cardio regular rate and regular rhythm Skin Wound Narrative: A well-healed right above-knee amputation stump is noted. An ulceration persists in the patient's right groin. There is a small amount of bioburden and nonviable tissue present. Dimensions are documented elsewhere. There has been improvement in the appearance of the ulceration in the last week, with an enhanced amount of pink, healthy granulation tissue. There is no sign of infection or cellulitis. Neuro oriented x3, CN's II-XII intact bilaterally, moves all extremities and no focal motor deficits Sensorium / Orientation: awake, alert, oriented to person, oriented to place and oriented to time Psych affect normal Appearance: grossly normal, appropriate and well kempt Attitude: calm and engaged Activity / Motor Behavior: appropriate eye contact Speech: normal speech Thought Process: normal thought process Attention / Concentration: attention grossly intact Insight: insight good Debridement Note Debridement Note Wound debrided: Right groin wound, soft tissue radionecrosis Laterality: Right Type of Debridement: Excisional debridement Anesthesia Used: 5% Lidocaine Gel Depth: Down to and including healthy tissue and in the subcutaneous layer Percentage of wound debrided: 100 Instrument Used: 3mm curette Severity: Fat Layer Exposed Amount of bleeding with debridement: Mild Bleeding Controlled with: Compression and gauze Patient tolerated procedure: Patient tolerated procedure well Post-Debridement Measurements and Additional Note: Post-Debridement Measurements/Treatment KISHA - Nurse 1 - General Ulcer Assessment Start: 01/11/23 13:55 Freq: Status: Active Protocol: MICHAEL Activity Type Activity Date Activity User E-sign Co-sign Detail Recorded Client Recorded Date Recorded By Document 01/11/23 13:55 [id number] 01/11/23 14:05 MW 01/11/23 13:55 - Today's Visit Information Type of service Follow-up 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/PROMOTIONS DIRECTOR ) Arrival Mode Ambulatory Transfer Assistance None Accompanied by self Patient Identification Verified (Name & Yes ) Patient Requires Transmission-Based No Precautions Safety Precautions Fall Prevention Height and Weight Body Mass Index (BMI) 29.8 BMI Classification Overweight Vital Signs Temperature (97.8 F-99.1 F) 97.7 F L Temperature Source Temporal Pulse Rate (60-100) 84 Pulse Location Monitor Respiratory Rate (12-18) 18 Respiratory rate source Observation Oxygen Delivery Method Room Air Blood Pressure (90/60-120/80) 149/74 H Blood Pressure Mean 99 Source Monitor Position Sitting Blood Pressure Location Left Arm History Since Last Visit- (Skip if this is Patient's initial visit) Have you changed medications since your No last visit? Any new allergies or adverse reactions No Had a fall/change in ADL's that may No increase risk of falls Signs or symptoms of abuse and/or No neglect since last visit Have you been in the hospital since your No last visit? Has dressing in place as prescribed Yes Has compression in place as prescribed N/A Has offloadiing in place as prescribed N/A Experienced any changes in pain level or No management Left Footwear Regular Shoe Right Footwear Other Footwear (Comment) Other Footwear RLE prosthesis Pain Scale: 0-10 Numeric Is Patient Pain Free? Yes WC - Nurse 1 - General Ulcer Measurement Start: 01/11/23 13:55 Freq: Status: Active Protocol: Activity Type Activity Date Activity User E-sign Co-sign Detail Recorded Client Recorded Date Recorded By Document 01/11/23 13:55 [id number] 01/11/23 14:05 MW 01/11/23 13:55 Wound Center Nurse 1 #11 R Groin -Combined with other wound No -Current Size (cm) - Length 2.0 -Current Size (cm) - Width 1.1 -Current Size (cm) - Depth 0.4 -Total Square Cm 2.20 -Date of Last Picture (Recall this 01/11/23 field) -Photo Taken Yes -Epithelialization None Present -Tunneling No -Undermining/Tunneling No -Circular Undermining No -Exudate Amt Small -Exudate Type Serosanguineous -Wound Margin Thickened -Granulation Amt Medium (34-66%) -Granulation Quality [place] -Slough/Fibrin Yes -Necrosis Amt Small (1-33%) -Necrotic Tissue Type Adherent Slough -Structure Exposed N/A -Texture (Blanche-wound Skin Appearance) Assessed, Scarring -Moisture (Blanche-wound Skin Appearance) No Abnormality, Assessed -Color (Blanche-wound Skin Appearance) No Abnormality, Assessed -Temperature (Blanche-wound Skin No Abnormality Appearance) (Pt Warm) -Tenderness on Palpation (Blanche-wound No Skin Appearance) -Ulcer Cleansing Rinsed/ Irrigated with Saline -Foul Odor after Cleansing No -Anesthetic Used 4% Lidocaine Solution Lower Limb Edema Present No WC - Nurse 3 - General Ulcer D/C NN Start: 01/11/23 13:55 Freq: Status: Active Protocol: Activity Type Activity Date Activity User E-sign Co-sign Detail Recorded Client Recorded Date Recorded By Document 01/11/23 14:24 [facility] [id number] 01/11/23 14:25 [facility] 01/11/23 14:24 Wound Care Center Nurse 3 #11 R Groin -Ulcer Cleansing Rinsed/ Irrigated with Saline -Foul Odor after Cleansing No -Primary Dressing Applied Fibracol Plus 4x4 -Other Dressing PT DRESSES SELF -Primary Dressing Covered/Secured with Dry Gauze, Secured with Tape -Fibracol Plus 4x4 1 Treatment Response Procedure Tolerated Well Pain Scale: 0-10 Numeric Is Patient Pain Free? 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 (2) Soft tissue radionecrosis: CODE(S): L59.8 - Other specified disorders of the skin and subcutaneous tissue related to radiation; Y84.2 - Radiological procedure and radiotherapy as the cause of abnormal reaction of the patient, or of later complication, without mention of misadventure at the time of the procedure (3) soft tissue radiation injury: (4) Radiation injury: CODE(S): T66.XXXA - Radiation sickness, unspecified, initial encounter QUALIFIERS: Encounter type: subsequent encounter Qualified Code(s): T66.XXXD - Radiation sickness, unspecified, subsequent encounter (5) History of melanoma: CODE(S): Z85.820 - Personal history of malignant melanoma of skin PLAN: Plan We have considered additional options in the patient's management relative to the ulceration in the patient's right groin. We have implemented the use of Pentoxifylline orally. Pentoxifylline has merit in the treatment of venous stasis ulcerations. Its use is documented in the literature. It is an off l indy indication. Similarly, literature exists in support of the use of Pentoxifylline in the treatment of soft tissue radiation injuries. She has been advised that the use of this medication is an off-label indication. It appears as though the medication is relatively inexpensive, and the risk of adverse reactions appears to be low. The indications and risks of the medication, and the potential benefits, have been discussed with the patient in detail. The patient's questions have been answered. Pentoxifylline 400 mg has been prescribed, to be taken on a 3 times daily basis. The benefits of the medication will be assessed during the patient's subsequent serial follow-up visits. Five EpiFix allografts have been recently placed. We have recently discussed other options, which have been considered by the patient in the past. For now, we are to continue the use of Fibracol, which will be applied by the patient topically on a daily basis. We will consider the use of a Snap VAC, ot herwise known as negative pressure wound therapy. Preauthorization for the use of the Snap VAC will be requested. Other options have also been considered, including referral to a tertiary care center for consideration of myocutaneous flap reconstruction of the involved area. However, the described potential complications and needed rehabilitation have given the patient reservations about proceeding with such aggressive management in the past. The patient is to return in 1 week for reassessment. Total time: 26 minutes
[2023-01-17 09:45] VITALS: BP 147/81; PULSE 79; RESP 16; TEMP 36.5; BMI 29.8
--- NOTE | 2023-01-17 10:40 | PCM.WC.HP ---
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 The patient was diagnosed with melanoma of the right calf in the 1969's. The melanoma was metastatic to lymph nodes. The patient underwent excision of her melanoma with lymphadenectomy in the right groin. She also underwent lengthy radiation treatments at the [facility] in [place], [place]. Melanoma recurred, and the patient was subsequently treated with monoclonal antibodies in 1984. However, due to the presence of severe radiation injury, persisting open wounds in the right thigh, MRSA infection, and severe radiation injury to the right femoral artery, the patient subsequently required right above-knee amputation in 2002. 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 Treatment included local ulcer care and hyperbaric oxygen therapy. She underwent a total of nearly 90 treatments of hyperbaric oxygen therapy. It is known that she tolerated the therapies well, and derived significant benefit. 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 She has also undergone several more sessions of hyperbaric oxygen therapy. She also received a series of 10 EpiFix allografts in the course of previous treatment. Each of the patient's prior courses of treatment in our facility have been protracted, with difficulties encountered in achieving complete healing. Her most recent course of treatment ended with successful healing and discharge in February 2021. The patient presented at this time with a recurrence of her right groin ulceration, again thought to be secondary to soft tissue radiation injury. The ulceration recurred spontaneously approximately 2-3 weeks prior to her presentation. The patient indicates that her health history has not changed since she was last treated in our facility. 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 Home Medications famotidine 20 mg tablet 20 mg PO 06/20/17 [History Last Taken Unknown] pravastatin 20 mg tablet 20 mg PO DAILY 06/20/17 [History Last Taken Unknown] famotidine 40 mg tablet PO 90 days ##90 12/26/17 [History Last Taken Unknown] pravastatin 20 mg tablet PO 90 days ##90 12/26/17 [History Last Taken Unknown] Allergy/AdvReac Type Severity Reaction Status Date / Time No Known Allergies Allergy Verified 02/15/22 09:08 Family History Other Heart disease Hypertension Surgical History Hx of AKA (above knee amputation) Social History Smoking Status: Former smoker alcohol intake: current alcohol intake frequency: holidays/special occasions only Vital Signs Vital Signs Vital Signs: 01/17/23 09:45 Temperature 97.7 F L Temperature Source Temporal Pulse Rate 79 Respiratory Rate 16 Blood Pressure 147/81 H Blood Pressure Mean 103 Blood Pressure Source Monitor Blood Pressure Position Sitting Blood Pressure Location Left Arm Oxygen Delivery Method Room Air Weight Weight: 196 lb 1.696 oz Body Mass Index (BMI) 29.8 Physical Exam Const alert, oriented x3, no apparent distress and well nourished General Appearance: cooperative, comfortable, well kempt and well developed Orientation / Consciousness: awake, oriented to person, oriented to place and oriented to time HEENT normocephalic, head/scalp atraumatic and hearing grossly normal bilaterally HEENT Narrative: Able to visualize her ear tubes bilaterally. Right tube appears to be shifting out of TM. Head and Scalp: normal to inspection, normocephalic and atraumatic Face and Sinus: normal facial exam External Ear: external ears normal Eyes EOMs intact bilaterally General Eye: normal appearance of both eyes Resp normal respiratory effort, normal air movement, no retractions and no use of accessory muscles Effort and Inspection: able to speak in complete sentences Cardio regular rate and regular rhythm Skin Wound Narrative: A well-healed right above-knee amputation stump is noted. An ulceration persists in the patient's right groin. There is a small amount of bioburden and nonviable tissue present. Dimensions are documented elsewhere. There has been minimal improvement in the appearance of the ulceration in the last week. There is no sign of infection or cellulitis. Neuro oriented x3, CN's II-XII intact bilaterally, moves all extremities and no focal motor deficits Sensorium / Orientation: awake, alert, oriented to person, oriented to place and oriented to time Psych affect normal Appearance: grossly normal, appropriate and well kempt Attitude: calm and engaged Activity / Motor Behavior: appropriate eye contact Speech: normal speech Thought Process: normal thought process Attention / Concentration: attention grossly intact Insight: insight good Debridement Note Debridement Note No debridement was completed: No debridement was completed today Post-Debridement Measurements and Additional Note: Post-Debridement Measurements/Treatment - Nurse 1 - General Ulcer Assessment Start: 01/11/23 13:55 Freq: Status: Active Protocol: MICHAEL Activity Type Activity Date Activity User E-sign Co-sign Detail Recorded Client Recorded Date Recorded By Document 01/11/23 13:55 MW [id number] 01/11/23 14:05 MW Document 01/17/23 09:45 MW [id number] 01/17/23 09:52 MW 01/11/23 01/17/23 13:55 09:45 - Today's Visit Information Type of service Follow-up Visit Follow-up 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/GENERAL MILLING SUPERINTENDENT (Physician/GENERAL MILLING SUPERINTENDENT ) ) Arrival Mode Ambulatory Ambulatory Transfer Assistance None None Accompanied by self self Patient Identification Verified (Name & Yes Yes ) Patient Requires Transmission-Based No No Precautions Safety Precautions Fall Prevention NA Height and Weight Body Mass Index (BMI) 29.8 29.8 BMI Classification Overweight Overweight Vital Signs Temperature (97.8 F-99.1 F) 97.7 F L 97.7 F L Temperature Source Temporal Temporal Pulse Rate (60-100) 84 79 Pulse Location Monitor Monitor Respiratory Rate (12-18) 18 16 Respiratory rate source Observation Observation Oxygen Delivery Method Room Air Room Air Blood Pressure (90/60-120/80) 149/74 H 147/81 H Blood Pressure Mean 99 103 Source Monitor Monitor Position Sitting Sitting Blood Pressure Location Left Arm Left Arm History Since Last Visit- (Skip if this is Patient's initial visit) Have you changed medications since your No No last visit? Any new allergies or adverse reactions No No Had a fall/change in ADL's that may No No increase risk of falls Signs or symptoms of abuse and/or No No neglect since last visit Have you been in the hospital since your No No last visit? Has dressing in place as prescribed Yes Yes Has compression in place as prescribed N/A N/A Has offloadiing in place as prescribed N/A N/A Experienced any changes in pain level or No No management Left Footwear Regular Shoe Regular Shoe Right Footwear Other Footwear Other Footwear (Comment) (Comment) Other Footwear RLE prosthesis right prosthesis Pain Scale: 0-10 Numeric Is Patient Pain Free? Yes Yes WC - Nurse 1 - General Ulcer Measurement Start: 01/11/23 13:55 Freq: Status: Active Protocol: Activity Type Activity Date Activity User E-sign Co-sign Detail Recorded Client Recorded Date Recorded By Document 01/11/23 13:55 MW [id number] 01/11/23 14:05 MW Document 01/17/23 09:45 MW [id number] 01/17/23 09:52 MW 01/11/23 01/17/23 13:55 09:45 Wound Center Nurse 1 #11 R Groin -Combined with other wound No No -Current Size (cm) - Length 2.0 2.0 -Current Size (cm) - Width 1.1 1.2 -Current Size (cm) - Depth 0.4 0.3 -Total Square Cm 2.20 2.40 -Date of Last Picture (Recall this 01/11/23 01/17/23 field) -Photo Taken Yes Yes -Epithelialization None Present None Present -Tunneling No No -Undermining/Tunneling No No -Circular Undermining No No -Exudate Amt Small Small -Exudate Type Serosanguineous Serosanguineous -Wound Margin Thickened Fibrotic Scar, Thickened Scar -Granulation Amt Medium (34-66%) Small (1-33%) -Granulation Quality [place] -Slough/Fibrin Yes Yes -Necrosis Amt Small (1-33%) Large (67-100%) -Necrotic Tissue Type Adherent Slough Adherent Slough -Structure Exposed N/A N/A -Texture (Blanche-wound Skin Appearance) Assessed, Assessed, Scarring Localized Edema -Moisture (Blanche-wound Skin Appearance) No Abnormality, Assessed,Dry/ Assessed Scaly -Color (Blanche-wound Skin Appearance) No Abnormality, No Abnormality, Assessed Assessed -Temperature (Blanche-wound Skin No Abnormality No Abnormality Appearance) (Pt Warm) (Pt Warm) -Tenderness on Palpation (Blanche-wound No No Skin Appearance) -Ulcer Cleansing Rinsed/ Rinsed/ Irrigated with Irrigated with Saline Saline -Foul Odor after Cleansing No No -Anesthetic Used 4% Lidocaine 4% Lidocaine Solution Solution Lower Limb Edema Present No No WC - Nurse 2 - General Ulcer CM Notes Start: 01/11/23 13:55 Freq: Status: Active Protocol: Activity Type Activity Date Activity User E-sign Co-sign Detail Recorded Client Recorded Date Recorded By Document 01/11/23 16:09 [id number] 01/11/23 16:10 PL 01/11/23 16:09 Wound Center Nurse 2 #11 R Groin -Time 14:17 -Correct Patient Yes -Correct Side, Site, Position Yes -Correct Procedure Yes -Procedure Performed Yes -Type of Procedure Debridement -Clinical Debridement Subcutaneous -Tissue Removed Subcutaneous -Post Debridement (cm) - Length 2.0 -Post Debridement (cm) - Width 1.1 -Post Debridement (cm) - Depth 0.4 -Total Square (Post) (cm) 2.20 -Area of Debridement (cm) - Length 2.0 -Area of Debridement (cm) - Width 1.1 -Total Square (Area) (cm) 2.20 -Tunneling No -Undermining/Tunneling No -Circular Undermining No -Wound/Ulcer Outcome Not Healed -Ulcer Cleansing Rinsed/ Irrigated with Saline -Foul Odor after Cleansing No -Bioengineered Tissue No -Bleeding Controlled with Pressure -Treatment Response Procedure Tolerated Well -Debridement - Subq, 1st 20sq cm Yes Pain Scale: 0-10 Numeric Is Patient Pain Free? Yes - Nurse 3 - General Ulcer D/C NN Start: 01/11/23 13:55 Freq: Status: Active Protocol: Activity Type Activity Date Activity User E-sign Co-sign Detail Recorded Client Recorded Date Recorded By Document 01/11/23 14:24 [facility] [id number] 01/11/23 14:25 [facility] 01/11/23 14:24 Wound Care Center Nurse 3 #11 R Groin -Ulcer Cleansing Rinsed/ Irrigated with Saline -Foul Odor after Cleansing No -Primary Dressing Applied Fibracol Plus 4x4 -Other Dressing PT DRESSES SELF -Primary Dressing Covered/Secured with Dry Gauze, Secured with Tape -Fibracol Plus 4x4 1 Treatment Response Procedure Tolerated Well Pain Scale: 0-10 Numeric Is Patient Pain Free? 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 (2) Soft tissue radionecrosis: CODE(S): L59.8 - Other specified disorders of the skin and subcutaneous tissue related to radiation; Y84.2 - Radiological procedure and radiotherapy as the cause of abnormal reaction of the patient, or of later complication, without mention of misadventure at the time of the procedure (3) soft tissue radiation injury: (4) Radiation injury: CODE(S): T66.XXXA - Radiation sickness, unspecified, initial encounter QUALIFIERS: Encounter type: subsequent encounter Qualified Code(s): T66.XXXD - Radiation sickness, unspecified, subsequent encounter (5) History of melanoma: CODE(S): Z85.820 - Personal history of malignant melanoma of skin PLAN: Plan We have considered additional options in the patient's management relative to the ulceration in the patient's right groin. We have implemented the use of Pentoxifylline orally. Pentoxifylline has merit in the treatment of venous stasis ulcerations. Its use is documented in the literature. It is an off label indication. Similarly, literature exists in support of the use of Pentoxifylline in the treatment of soft tissue radiation injuries. She has been advised that the use of this medication is an off-label indication. It appears as though the medication is relatively inexpensive, and the risk of adverse reactions appears to be low. The indications and risks of the medication, and the potential benefits, have been discussed with the patient in detail. The patient's questions have been answered. Pentoxifylline 400 mg has been prescribed, to be taken on a 3 times daily basis. The benefits of the medication will be assessed during the patient's subsequent serial follow-up visits. Five EpiFix allografts have been recently placed. We have recently discussed other options, which have been considered by the patient in the past. For now, we are to continue the use of Fibracol, which will be applied by the patient topically on a daily basis. We will consider the use of a Snap VAC, otherwise known as negative pressure wound therapy. Preauthorization for the use of the Snap VAC will be requested. A number of pathway options have been implemented, all of which have resulted in very little improvement in the patient's wound healing status. Therefore, we are to alter the patient's course of treatment. Debridements are to be discontinued for several weeks, which is an effort to determine whether this alternative approach may have some benefit in healing. The presence of the patient's ulceration in an intertriginous zone, subject to body heat and perspiration, appears to be a factor in the lack of healing, as well as the likelihood that the arterial supply is likely compromised as a result of severe soft tissue radionecrosis from prior radiation. The patient is to continue with the use of Fibracol applied topically on a daily basis. Because the patient states she has noted a slight increase in drainage from the right groin ulceration, swab cultures have been obtained for aerobic and and anaerobic bacterial growth. Culture results will be awaited, and response will be predicated upon these results. The patient is to return in 3 weeks for reassessment. Other options have also been considered, including referral to a tertiary care center for consideration of myocutaneous flap reconstruction of the involved area. However, the described potential complications and needed rehabilitation have given the patient reservations about proceeding with such aggressive management in the past. Total time: 24 minutes
== END 2023-02-06 23:59 | disposition home or self-care (01) ==
LOC: WC 09:15
PROVIDERS: PCP Family Medicine; Visit Provider Surgery
DX: L97.112 Non-pressure chronic ulcer of right thigh with fat layer exposed (principal); Z87.891 Personal history of nicotine dependence; Z92.3 Personal history of irradiation; T66.XXXD Radiation sickness, unspecified, subsequent encounter; Y84.2 Radiological procedure and radiotherapy as the cause of abnormal reaction of the patient, or of later complication, without mention of misadventure at the time of the procedure; Z85.820 Personal history of malignant melanoma of skin
CPT/HCPCS: 11042; 87070; 87075; 87077; 87205; 99213; G0463

== ENCOUNTER 2023-02-28 09:30 | Outpatient (RCR) | payer MEDICARE, OTHER, SELFPAY ==
[2023-02-07 00:33] VITALS: BP 147/81; PULSE 79; RESP 16; TEMP 36.5; BMI 29.8
[2023-02-07 09:34] VITALS: BP 146/81; PULSE 76; RESP 16; TEMP 35.8; BMI 29.8
--- NOTE | 2023-02-07 12:25 | PCM.WC.HP ---
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 The patient was diagnosed with melanoma of the right calf in the 1969's. 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 The patient underwent excision of her melanoma with lymphadenectomy in the right groin. She also underwent lengthy radiation treatments at the [facility] in [place], [place]. Melanoma recurred, and the patient was subsequently treated with monoclonal antibodies in 1984. However, due to the presence of severe radiation injury, persisting open wounds in the right thigh, MRSA infection, and severe radiation injury to the right femoral artery, the patient subsequently required right above-knee amputation in 2002. 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 Treatment included local ulcer care and hyperbaric oxygen therapy. She underwent a total of nearly 90 treatments of hyperbaric oxygen therapy. It is known that she tolerated the therapies well, and derived significant benefit. 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 She has also undergone several more sessions of hyperbaric oxygen therapy. She also received a series of 10 EpiFix allografts in the course of previous treatment. Each of the patient's prior courses of treatment in our facility have been protracted, with difficulties encountered in achieving complete healing. Her most recent course of treatment ended with successful healing and discharge in February 2021. The patient presented at this time with a recurrence of her right groin ulceration, again thought to be secondary to soft tissue radiation injury. The ulceration recurred spontaneously approximately 2-3 weeks prior to her presentation. The patient indicates that her health history has not changed since she was last treated in our facility. 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 Home Medications famotidine 20 mg tablet 20 mg PO 06/20/17 [History Last Taken Unknown] pravastatin 20 mg tablet 20 mg PO DAILY 06/20/17 [History Last Taken Unknown] famotidine 40 mg tablet PO 90 days ##90 12/26/17 [History Last Taken Unknown] pravastatin 20 mg tablet PO 90 days ##90 12/26/17 [History Last Taken Unknown] cyclobenzaprine 10 mg tablet 10 mg PO TID 02/07/23 [History Last Taken 02/07/23] Allergy/AdvReac Type Severity Reaction Status Date / Time No Known Allergies Allergy Verified 02/15/22 09:08 Family History Other Heart disease Hypertension Surgical History Hx of AKA (above knee amputation) Social History Smoking Status: Former smoker alcohol intake: current alcohol intake frequency: holidays/special occasions only Vital Signs Vital Signs Vital Signs: 02/07/23 09:34 02/07/23 00:33 Temperature 96.4 F L 97.7 F L Temperature Source Temporal Pulse Rate 76 79 Respiratory Rate 16 16 Blood Pressure 146/81 H 147/81 H Blood Pressure Mean 102 103 Blood Pressure Source Monitor Blood Pressure Position Sitting Blood Pressure Location Left Arm Left Arm Oxygen Delivery Method Room Air Weight Weight: 196 lb 1.696 oz Body Mass Index (BMI) 29.8 Physical Exam Const alert, oriented x3, no apparent distress and well nourished General Appearance: cooperative, comfortable, well kempt and well developed Orientation / Consciousness: awake, oriented to person, oriented to place and oriented to time HEENT normocephalic, head/scalp atraumatic and hearing grossly normal bilaterally HEENT Narrative: Able to visualize her ear tubes bilaterally. Right tube appears to be shifting out of TM. Head and Scalp: normal to inspection, normocephalic and atraumatic Face and Sinus: normal facial exam External Ear: external ears normal Eyes EOMs intact bilaterally General Eye: normal appearance of both eyes Resp normal respiratory effort, normal air movement, no retractions and no use of accessory muscles Effort and Inspection: able to speak in complete sentences Cardio regular rate and regular rhythm Skin Wound Narrative: A well-healed right above-knee amputation stump is noted. An ulceration persists in the patient's right groin. There is a small amount of bioburden and nonviable tissue present. Dimensions are documented elsewhere. There has been minimal improvement in the appearance of the ulceration recently. There is no sign of infection or cellulitis. Neuro oriented x3, CN's II-XII intact bilaterally, moves all extremities and no focal motor deficits Sensorium / Orientation: awake, alert, oriented to person, oriented to place and oriented to time Psych affect normal Appearance: grossly normal, appropriate and well kempt Attitude: calm and engaged Activity / Motor Behavior: appropriate eye contact Speech: normal speech Thought Process: normal thought process Attention / Concentration: attention grossly intact Insight: insight good Debridement Note Debridement Note Wound debrided: Right groin ulceration, soft tissue radionecrosis Laterality: Right Type of Debridement: Excisional debridement Anesthesia Used: 5% Lidocaine Gel Depth: Down to and including healthy tissue and in the subcutaneous layer Percentage of wound debrided: 100 Instrument Used: 5mm curette Tissue Removed: Bioburden and nonviable tissue Severity: Fat Layer Exposed Amount of bleeding with debridement: Mild Bleeding Controlled with: Compression and gauze Patient tolerated procedure: Patient tolerated procedure well Post-Debridement Measurements and Additional Note: Post-Debridement Measurements/Treatment - Nurse 1 - General Ulcer Assessment Start: 02/07/23 09:33 Freq: Status: Active Protocol: KISHA.XOCHITL Activity Type Activity Date Activity User E-sign Co-sign Detail Recorded Client Recorded Date Recorded By Document 02/07/23 09:34 KW [id number] 02/07/23 09:43 KW 02/07/23 09:34 - Today's Visit Information Type of service Follow-up 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/[employer] PROFESSOR ) Arrival Mode Ambulatory Height and Weight Body Mass Index (BMI) 29.8 BMI Classification Overweight Vital Signs Temperature (97.8 F-99.1 F) 96.4 F L Temperature Source Temporal Pulse Rate (60-100) 76 Pulse Location Monitor Respiratory Rate (12-18) 16 Respiratory rate source Observation Oxygen Delivery Method Room Air Blood Pressure (90/60-120/80) 146/81 H Blood Pressure Mean 102 Source Monitor Position Sitting Blood Pressure Location Left Arm History Since Last Visit- (Skip if this is Patient's initial visit) Have you changed medications since your Yes last visit? Any new allergies or adverse reactions No Had a fall/change in ADL's that may No increase risk of falls Signs or symptoms of abuse and/or No neglect since last visit Have you been in the hospital since your No last visit? Has dressing in place as prescribed Yes Has compression in place as prescribed No Has offloadiing in place as prescribed No Experienced any changes in pain level or No management Left Footwear Regular Shoe Right Footwear No Footwear Pain Scale: 0-10 Numeric Is Patient Pain Free? Yes - Nurse 1 - General Ulcer Measurement Start: 02/07/23 09:33 Freq: Status: Active Protocol: Activity Type Activity Date Activity User E-sign Co-sign Detail Recorded Client Recorded Date Recorded By Document 02/07/23 09:34 KW [id number] 02/07/23 09:43 KW 02/07/23 09:34 Wound Center Nurse 1 #11 R Groin -Current Size (cm) - Length 2.1 -Current Size (cm) - Width 1.1 -Current Size (cm) - Depth 0.2 -Total Square Cm 2.31 -Tunneling No -Undermining/Tunneling No -Circular Undermining No -Exudate Amt Small -Exudate Type Serosanguineous -Wound Margin Distinct, Outline Attached -Granulation Amt Large (67-100%) -Granulation Quality Red -Necrosis Amt Small (1-33%) -Necrotic Tissue Type Adherent Slough -Texture (Blanche-wound Skin Appearance) Assessed -Moisture (Blanche-wound Skin Appearance) Assessed -Color (Blanche-wound Skin Appearance) Assessed -Temperature (Blanche-wound Skin No Abnormality Appearance) (Pt Warm) -Tenderness on Palpation (Blanche-wound No Skin Appearance) -Ulcer Cleansing Rinsed/ Irrigated with Saline -Foul Odor after Cleansing No -Anesthetic Used 4% Lidocaine Solution - Nurse 3 - General Ulcer D/C NN Start: 02/07/23 09:33 Freq: Status: Active Protocol: Activity Type Activity Date Activity User E-sign Co-sign Detail Recorded Client Recorded Date Recorded By Document 02/07/23 11:00 MW [id number] 02/07/23 11:02 MW 02/07/23 11:00 Wound Care Center Nurse 3 -Ulcer Cleansing Rinsed/ Irrigated with Saline -Foul Odor after Cleansing No -Negative Pressure Wound Therapy Start -Setting (mmHg) 125 -Negative Pressure is Continuous -Other Dressing blue foam -NPWT Application Charge NPWT </= 50 sq cm (disp) ($) Treatment Response Procedure Tolerated Well Pain Scale: 0-10 Numeric Is Patient Pain Free? 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 (2) Soft tissue radionecrosis: CODE(S): L59.8 - Other specified disorders of the skin and subcutaneous tissue related to radiation; Y84.2 - Radiological procedure and radiotherapy as the cause of abnormal reaction of the patient, or of later complication, without mention of misadventure at the time of the procedure (3) soft tissue radiation injury: (4) Radiation injury: CODE(S): T66.XXXA - Radiation sickness, unspecified, initial encounter QUALIFIERS: Encounter type: subsequent encounter Qualified Code(s): T66.XXXD - Radiation sickness, unspecified, subsequent encounter (5) History of melanoma: CODE(S): Z85.820 - Personal history of malignant melanoma of skin PLAN: Plan We have considered additional options in the patient's management relative to the ulceration in the patient's right groin. We have implemented the use of Pentoxifylline orally. Pentoxifylline has merit in the treatment of venous stasis ulcerations. Its use is documented in the literature. It is an off label indication. Similarly, literature exists in support of the use of Pentoxifylline in the treatment of soft tissue radiation injuries. She has been advised that the use of this medication is an off-label indication. It appears as though the medication is relatively inexpensive, and the risk of adverse reactions appears to be low. The indications and risks of the medication, and the potential benefits, have been discussed with the patient in detail. The patient's questions have been answered. Pentoxifylline 400 mg has been prescribed, to be taken on a 3 times daily basis. The benefits of the medication will be assessed during the patient's subsequent serial follow-up visits. Five EpiFix allografts have been recently placed. We have recently discussed other options, which have been considered by the patient in the past. For now, we are to implement the use of a Snap VAC, which is to be placed in the [facility] today, and changed on a weekly basis. It is acknowledged that there may be some issues related to maintaining an airtight seal, given the location of the wound in the patient's groin. The presence of the patient's ulceration in an intertriginous zone, subject to body heat and perspiration, appears to be a factor in the lack of healing, as well as the likelihood that the arterial supply is compromised as a result of severe soft tissue radionecrosis from prior radiation. Recent culture results have been noted, and appear to be normal skin mare, rather than pathological organisms. The patient is to return in 1 week for reassessment. Other options have also been considered, including referral to a tertiary care center for consideration of myocutaneous flap reconstruction of the involved area. However, the described potential complications and needed rehabilitation have given the patient reservations about proceeding with such aggressive management in the past. Total time: 26 minutes
[2023-02-14 09:04] VITALS: BP 149/88; PULSE 98; RESP 20; TEMP 36.1; BMI 29.8
--- NOTE | 2023-02-14 09:21 | PCM.WC.HP ---
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 The patient was diagnosed with melanoma of the right calf in the 1969's. The melanoma was metastatic to lymph nodes. The patient underwent excision of her melanoma with lymphadenectomy in the right groin. She also underwent lengthy radiation treatments at the [facility] in [place], [place]. Melanoma recurred, and the patient was subsequently treated with monoclonal antibodies in 1984. However, due to the presence of severe radiation injury, persisting open wounds in the right thigh, MRSA infection, and severe radiation injury to the right femoral artery, the patient subsequently required right above-knee amputation in 2002. 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 Treatment included local ulcer care and hyperbaric oxygen therapy. She underwent a total of nearly 90 treatments of hyperbaric oxygen therapy. It is known that she tolerated the therapies well, and derived significant benefit. 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 She has also undergone several more sessions of hyperbaric oxygen therapy. She also received a series of 10 EpiFix allografts in the course of previous treatment. Each of the patient's prior courses of treatment in our facility have been protracted, with difficulties encountered in achieving complete healing. Her most recent course of treatment ended with successful healing and discharge in February 2021. The patient presented at this time with a recurrence of her right groin ulceration, again thought to be secondary to soft tissue radiation injury. The ulceration recurred spontaneously approximately 2-3 weeks prior to her presentation. The patient indicates that her health history has not changed since she was last treated in our facility. 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 Home Medications famotidine 20 mg tablet 20 mg PO 06/20/17 [History Last Taken Unknown] pravastatin 20 mg tablet 20 mg PO DAILY 06/20/17 [History Last Taken Unknown] famotidine 40 mg tablet PO 90 days ##90 12/26/17 [History Last Taken Unknown] pravastatin 20 mg tablet PO 90 days ##90 12/26/17 [History Last Taken Unknown] cyclobenzaprine 10 mg tablet 10 mg PO TID 02/07/23 [History Last Taken 02/07/23] Allergy/AdvReac Type Severity Reaction Status Date / Time No Known Allergies Allergy Verified 02/15/22 09:08 Family History Other Heart disease Hypertension Surgical History Hx of AKA (above knee amputation) Social History Smoking Status: Former smoker alcohol intake: current alcohol intake frequency: holidays/special occasions only Vital Signs Vital Signs Vital Signs: 02/14/23 09:04 Temperature 97 F L Temperature Source Temporal Pulse Rate 98 Respiratory Rate 20 H Blood Pressure 149/88 H Blood Pressure Mean 108 Weight Weight: 196 lb 1.696 oz Body Mass Index (BMI) 29.8 Physical Exam Const alert, oriented x3, no apparent distress and well nourished General Appearance: cooperative, comfortable, well kempt and well developed Orientation / Consciousness: awake, oriented to person, oriented to place and oriented to time HEENT normocephalic, head/scalp atraumatic and hearing grossly normal bilaterally HEENT Narrative: Able to visualize her ear tubes bilaterally. Right tube appears to be shifting out of TM. Head and Scalp: normal to inspection, normocephalic and atraumatic Face and Sinus: normal facial exam External Ear: external ears normal Eyes EOMs intact bilaterally General Eye: normal appearance of both eyes Resp normal respiratory effort, normal air movement, no retractions and no use of accessory muscles Effort and Inspection: able to speak in complete sentences Cardio regular rate and regular rhythm Skin Wound Narrative: A well-healed right above-knee amputation stump is noted. An ulceration persists in the patient's right groin. There is a small amount of bioburden and nonviable tissue present. Dimensions are documented elsewhere. There has been improvement in the appearance of the ulceration. There is no sign of infection or cellulitis. The ulceration is clean and healthy in appearance, and smaller in size. Neuro oriented x3, CN's II-XII intact bilaterally, moves all extremities and no focal motor deficits Sensorium / Orientation: awake, alert, oriented to person, oriented to place and oriented to time Psych affect normal Appearance: grossly normal, appropriate and well kempt Attitude: calm and engaged Activity / Motor Behavior: appropriate eye contact Speech: normal speech Thought Process: normal thought process Attention / Concentration: attention grossly intact Insight: insight good Debridement Note Debridement Note Wound debrided: Right groin ulceration, soft tissue radionecrosis Laterality: Right Type of Debridement: Excisional debridement Anesthesia Used: 5% Lidocaine Gel Depth: Down to and including healthy tissue and in the subcutaneous layer Percentage of wound debrided: 100 Instrument Used: 5mm curette Tissue Removed: Bioburden and nonviable tissue Severity: Fat Layer Exposed Amount of bleeding with debridement: Mild Bleeding Controlled with: Compression and gauze Patient tolerated procedure: Patient tolerated procedure well Post-Debridement Measurements and Additional Note: Post-Debridement Measurements/Treatment WC - Nurse 1 - General Ulcer Assessment Start: 02/07/23 09:33 Freq: Status: Active Protocol: MICHAEL Activity Type Activity Date Activity User E-sign Co-sign Detail Recorded Client Recorded Date Recorded By Document 02/07/23 09:34 KW [id number] 02/07/23 09:43 KW Document 02/14/23 09:04 DL [id number] 02/14/23 09:09 DL 02/07/23 02/14/23 09:34 09:04 - Today's Visit Information Type of service Follow-up Visit Follow-up 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/[employer] [employer] (Physician/[employer] ) ) Arrival Mode Ambulatory Ambulatory Transfer Assistance None Patient Identification Verified (Name & Yes ) Patient Requires Transmission-Based No Precautions Height and Weight Body Mass Index (BMI) 29.8 29.8 BMI Classification Overweight Overweight Vital Signs Temperature (97.8 F-99.1 F) 96.4 F L 97 F L Temperature Source Temporal Temporal Pulse Rate (60-100) 76 98 Pulse Location Monitor Monitor Respiratory Rate (12-18) 16 20 H Respiratory rate source Observation Observation Oxygen Delivery Method Room Air Blood Pressure (90/60-120/80) 146/81 H 149/88 H Blood Pressure Mean 102 108 Source Monitor Position Sitting Blood Pressure Location Left Arm History Since Last Visit- (Skip if this is Patient's initial visit) Have you changed medications since your Yes No last visit? Any new allergies or adverse reactions No No Had a fall/change in ADL's that may No No increase risk of falls Signs or symptoms of abuse and/or No No neglect since last visit Have you been in the hospital since your No No last visit? Has dressing in place as prescribed Yes Yes Has compression in place as prescribed No N/A Has offloadiing in place as prescribed No Yes Experienced any changes in pain level or No No management Left Footwear Regular Shoe Right Footwear No Footwear Pain Scale: 0-10 Numeric Is Patient Pain Free? Yes Yes WC - Nurse 1 - General Ulcer Measurement Start: 02/07/23 09:33 Freq: Status: Active Protocol: Activity Type Activity Date Activity User E-sign Co-sign Detail Recorded Client Recorded Date Recorded By Document 02/07/23 09:34 KW [id number] 02/07/23 09:43 KW Document 02/14/23 09:04 DL [id number] 02/14/23 09:09 DL Edit Result 02/14/23 09:04 DL (1) [id number] 02/14/23 09:11 DL (1) #11 R Groin - Undermining/Tunneling Starts (O'clock) => 6 - Undermining/Tunneling Ends (O'clock) => 7 - Maximum Distance (cm) => 0.3 02/07/23 02/14/23 09:34 09:04 Wound Center Nurse 1 #11 R Groin -Current Size (cm) - Length 2.1 1.9 -Current Size (cm) - Width 1.1 0.6 -Current Size (cm) - Depth 0.2 0.4 -Total Square Cm 2.31 1.14 -Tunneling No -Undermining/Tunneling No -Undermining/Tunneling Starts (O'clock 6 ) -Undermining/Tunneling Ends (O'clock) 7 -Maximum Distance (cm) 0.3 -Circular Undermining No -Exudate Amt Small Small -Exudate Type Serosanguineous Serosanguineous -Wound Margin Distinct, Thickened & Outline Rolled Under Attached -Granulation Amt Large (67-100%) Large (67-100%) -Granulation Quality [place] -Slough/Fibrin Yes -Necrosis Amt Small (1-33%) Small (1-33%) -Necrotic Tissue Type Adherent Slough -Structure Exposed N/A -Texture (Blanche-wound Skin Appearance) Assessed Scarring -Moisture (Blanche-wound Skin Appearance) Assessed Dry/Scaly -Color (Blanche-wound Skin Appearance) Assessed No Abnormality -Temperature (Blanche-wound Skin No Abnormality No Abnormality Appearance) (Pt Warm) (Pt Warm) -Tenderness on Palpation (Blanche-wound No No Skin Appearance) -Ulcer Cleansing Rinsed/ Rinsed/ Irrigated with Irrigated with Saline Saline -Foul Odor after Cleansing No No -Anesthetic Used 4% Lidocaine 4% Lidocaine Solution Solution KISHA - Nurse 2 - General Ulcer CM Notes Start: 02/07/23 09:33 Freq: Status: Active Protocol: Activity Type Activity Date Activity User E-sign Co-sign Detail Recorded Client Recorded Date Recorded By Document 02/07/23 12:32 PL [id number] 02/07/23 12:33 PL 02/07/23 12:32 Wound Center Nurse 2 -Time 10:22 -Correct Patient Yes -Correct Side, Site, Position Yes -Correct Procedure Yes -Procedure Performed Yes -Type of Procedure Debridement -Clinical Debridement Subcutaneous -Tissue Removed Subcutaneous -Post Debridement (cm) - Length 2.1 -Post Debridement (cm) - Width 1.1 -Post Debridement (cm) - Depth 0.2 -Total Square (Post) (cm) 2.31 -Area of Debridement (cm) - Length 2.1 -Area of Debridement (cm) - Width 1.1 -Total Square (Area) (cm) 2.31 -Tunneling No -Undermining/Tunneling No -Circular Undermining No -Wound/Ulcer Outcome Not Healed -Ulcer Cleansing Rinsed/ Irrigated with Saline -Foul Odor after Cleansing No -Bioengineered Tissue No -Bleeding Controlled with Pressure -Treatment Response Procedure Tolerated Well -Debridement - Subq, 1st 20sq cm Yes Pain Scale: 0-10 Numeric Is Patient Pain Free? Yes - Nurse 3 - General Ulcer D/C NN Start: 02/07/23 09:33 Freq: Status: Active Protocol: Activity Type Activity Date Activity User E-sign Co-sign Detail Recorded Client Recorded Date Recorded By Document 02/07/23 11:00 MW [id number] 02/07/23 11:02 MW 02/07/23 11:00 Wound Care Center Nurse 3 #11 R Groin -Ulcer Cleansing Rinsed/ Irrigated with Saline -Foul Odor after Cleansing No -Negative Pressure Wound Therapy Start -Setting (mmHg) 125 -Negative Pressure is Continuous -Other Dressing blue foam -NPWT Application Charge NPWT </= 50 sq cm (disp) ($) Treatment Response Procedure Tolerated Well Pain Scale: 0-10 Numeric Is Patient Pain Free? 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 (2) Soft tissue radionecrosis: CODE(S): L59.8 - Other specified disorders of the skin and subcutaneous tissue related to radiation; Y84.2 - Radiological procedure and radiotherapy as the cause of abnormal reaction of the patient, or of later complication, without mention of misadventure at the time of the procedure (3) soft tissue radiation injury: (4) Radiation injury: CODE(S): T66.XXXA - Radiation sickness, unspecified, initial encounter QUALIFIERS: Encounter type: subsequent encounter Qualified Code(s): T66.XXXD - Radiation sickness, unspecified, subsequent encounter (5) History of melanoma: CODE(S): Z85.820 - Personal history of malignant melanoma of skin PLAN: Plan This is a 67-year-old female with a severe soft tissue radiation injury that occurred as result of radiation treatments for malignant melanoma many years ago. A total of 5 EpiFix allografts have been placed in the recent past. Little improvement was noted. More recently, we have implemented a Snap VAC. Because of the location in the right groin, an intertriginous zone, subject to perspiration and repetitive motion, it will be necessary to replace the snap VAC on a twice weekly basis. Appointments will be given for this to be accomplished. Early in its implementation, improvement has been noted with the Snap VAC, which is to be continued for now. It has been acknowledged that there may be some issues related to maintaining an airtight seal, given the location of the wound in the patient's groin. The presence of the patient's ulceration in an intertriginous zone, subject to body heat and perspiration, appears to be a factor in the lack of healing, as well as the likelihood that the arterial supply is compromised as a result of severe soft tissue radionecrosis from prior radiation. Recent culture results have been noted, and appear to be normal skin mare, rather than pathological organisms. The patient is to return in 1 week for reassessment. Other options have also been considered, including referral to a tertiary care center for consideration of myocutaneous flap reconstruction of the involved area. However, the described potential complications and needed rehabilitation have given the patient reservations about proceeding with such aggressive management in the past. Total time: 25 minutes
[2023-02-17 13:06] VITALS: BP 147/79; PULSE 89; RESP 16; TEMP 36.3; BMI 29.8
[2023-02-21 09:38] VITALS: BP 154/90; PULSE 90; RESP 16; TEMP 36; BMI 29.8
--- NOTE | 2023-02-21 12:44 | HP.PCM_ITS ---
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 The patient was diagnosed with melanoma of the right calf in the 1969's. The melanoma was metastatic to lymph nodes. The patient underwent excision of her melanoma with lymphadenectomy in the right groin. She also underwent lengthy radiation treatments at the [facility] in [place], [place]. Melanoma recurred, and the patient was subsequently treated with monoclonal antibodies in 1984. However, due to the presence of severe radiation injury, persisting open wounds in the right thigh, MRSA infection, and severe radiation injury to the right femoral artery, the patient subsequently required right above-knee amputation in 2002. 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 Treatment included local ulcer care and hyperbaric oxygen therapy. She underwent a total of nearly 90 treatments of hyperbaric oxygen therapy. It is known that she tolerated the therapies well, and derived significant benefit. 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 She has also undergone several more sessions of hyperbaric oxygen therapy. She also received a series of 10 EpiFix allografts in the course of previous treatment. Each of the patient's prior courses of treatment in our facility have been protracted, with difficulties encountered in achieving complete healing. Her most recent course of treatment ended with successful healing and discharge in February 2021. The patient presented at this time with a recurrence of her right groin ulceration, again thought to be secondary to soft tissue radiation injury. The ulceration recurred spontaneously approximately 2-3 weeks prior to her presentation. The patient indicates that her health history has not changed since she was last treated in our facility. 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 Home Medications famotidine 20 mg tablet 20 mg PO 06/20/17 [History Last Taken Unknown] pravastatin 20 mg tablet 20 mg PO DAILY 06/20/17 [History Last Taken Unknown] famotidine 40 mg tablet PO 90 days ##90 12/26/17 [History Last Taken Unknown] pravastatin 20 mg tablet PO 90 days ##90 12/26/17 [History Last Taken Unknown] cyclobenzaprine 10 mg tablet 10 mg PO TID 02/07/23 [History Last Taken 02/07/23] Allergy/AdvReac Type Severity Reaction Status Date / Time No Known Allergies Allergy Verified 02/15/22 09:08 Family History Other Heart disease Hypertension Surgical History Hx of AKA (above knee amputation) Social History Smoking Status: Former smoker alcohol intake: current alcohol intake frequency: holidays/special occasions only Vital Signs Vital Signs Vital Signs: 02/21/23 09:38 Temperature 96.8 F L Temperature Source Temporal Pulse Rate 90 Respiratory Rate 16 Blood Pressure 154/90 H Blood Pressure Mean 111 Blood Pressure Source Monitor Blood Pressure Position Sitting Blood Pressure Location Left Arm Oxygen Delivery Method Room Air Weight Weight: 196 lb 1.696 oz Body Mass Index (BMI) 29.8 Physical Exam Const alert, oriented x3, no apparent distress and well nourished General Appearance: cooperative, comfortable, well kempt and well developed Orientation / Consciousness: awake, oriented to person, oriented to place and oriented to time HEENT normocephalic, head/scalp atraumatic and hearing grossly normal bilaterally HEENT Narrative: Able to visualize her ear tubes bilaterally. Right tube appears to be shifting out of TM. Head and Scalp: normal to inspection, normocephalic and atraumatic Face and Sinus: normal facial exam External Ear: external ears normal Eyes EOMs intact bilaterally General Eye: normal appearance of both eyes Resp normal respiratory effort, normal air movement, no retractions and no use of accessory muscles Effort and Inspection: able to speak in complete sentences Cardio regular rate and regular rhythm Skin Wound Narrative: A well-healed right above-knee amputation stump is noted. An ulceration persists in the patient's right groin. There is a small amount of bioburden and nonviable tissue present. Dimensions are documented elsewhere. There has been no significant improvement in the appearance of the ulceration. There is no sign of infection or cellulitis. Neuro oriented x3, CN's II-XII intact bilaterally, moves all extremities and no focal motor deficits Sensorium / Orientation: awake, alert, oriented to person, oriented to place and oriented to time Psych affect normal Appearance: grossly normal, appropriate and well kempt Attitude: calm and engaged Activity / Motor Behavior: appropriate eye contact Speech: normal speech Thought Process: normal thought process Attention / Concentration: attention grossly intact Insight: insight good Debridement Note Debridement Note Wound debrided: Right groin ulceration, soft tissue radionecrosis Laterality: Right Type of Debridement: Excisional debridement Anesthesia Used: 5% Lidocaine Gel Depth: Down to and including healthy tissue and in the subcutaneous layer Percentage of wound debrided: 100 Instrument Used: 5mm curette Tissue Removed: Bioburden and nonviable tissue Severity: Fat Layer Exposed Amount of bleeding with debridement: Mild Bleeding Controlled with: Compression and gauze Patient tolerated procedure: Patient tolerated procedure well Post-Debridement Measurements and Additional Note: Post-Debridement Measurements/Treatment - Nurse 1 - General Ulcer Assessment Start: 02/07/23 09:33 Freq: Status: Active Protocol: MICHAEL Activity Type Activity Date Activity User E-sign Co-sign Detail Recorded Client Recorded Date Recorded By Document 02/07/23 09:34 KW [id number] 02/07/23 09:43 KW Document 02/14/23 09:04 DL [id number] 02/14/23 09:09 DL Document 02/17/23 13:06 MW [id number] 02/17/23 13:07 MW Document 02/21/23 09:38 MW [id number] 02/21/23 09:42 MW 02/07/23 02/14/23 02/17/23 09:34 09:04 13:06 - Today's Visit Information Type of service Follow-up Visit Follow-up Visit Nurse-only (Physician/HEEL ROOM SUPERVISOR (Physician/HEEL ROOM SUPERVISOR Visit ) ) Arrival Mode Ambulatory Ambulatory Ambulatory Transfer Assistance None None Accompanied by self Patient Identification Verified (Name & Yes Yes ) Patient Requires Transmission-Based No No Precautions Safety Precautions NA Height and Weight Body Mass Index (BMI) 29.8 29.8 29.8 BMI Classification Overweight Overweight Overweight Vital Signs Temperature (97.8 F-99.1 F) 96.4 F L 97 F L 97.3 F L Temperature Source Temporal Temporal Temporal Pulse Rate (60-100) 76 98 89 Pulse Location Monitor Monitor Monitor Respiratory Rate (12-18) 16 20 H 16 Respiratory rate source Observation Observation Observation Oxygen Delivery Method Room Air Room Air Blood Pressure (90/60-120/80) 146/81 H 149/88 H 147/79 H Blood Pressure Mean 102 108 101 Source Monitor Monitor Position Sitting Sitting Blood Pressure Location Left Arm Right Arm History Since Last Visit- (Skip if this is Patient's initial visit) Have you changed medications since your Yes No No last visit? Any new allergies or adverse reactions No No No Had a fall/change in ADL's that may No No No increase risk of falls Signs or symptoms of abuse and/or No No No neglect since last visit Have you been in the hospital since your No No No last visit? Has dressing in place as prescribed Yes Yes Yes Has compression in place as prescribed No N/A N/A Has offloadiing in place as prescribed No Yes N/A Experienced any changes in pain level or No No No management Left Footwear Regular Shoe Regular Shoe Right Footwear No Footwear Regular Shoe Pain Scale: 0-10 Numeric Is Patient Pain Free? Yes Yes Yes 02/21/23 09:38 WC - Today's Visit Information Type of service Follow-up 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/HEEL ROOM SUPERVISOR ) Arrival Mode Ambulatory Transfer Assistance None Accompanied by self Patient Identification Verified (Name & Yes ) Patient Requires Transmission-Based No Precautions Safety Precautions NA Height and Weight Body Mass Index (BMI) 29.8 BMI Classification Overweight Vital Signs Temperature (97.8 F-99.1 F) 96.8 F L Temperature Source Temporal Pulse Rate (60-100) 90 Pulse Location Monitor Respiratory Rate (12-18) 16 Respiratory rate source Observation Oxygen Delivery Method Room Air Blood Pressure (90/60-120/80) 154/90 H Blood Pressure Mean 111 Source Monitor Position Sitting Blood Pressure Location Left Arm History Since Last Visit- (Skip if this is Patient's initial visit) Have you changed medications since your No last visit? Any new allergies or adverse reactions No Had a fall/change in ADL's that may No increase risk of falls Signs or symptoms of abuse and/or No neglect since last visit Have you been in the hospital since your No last visit? Has dressing in place as prescribed Yes Has compression in place as prescribed N/A Has offloadiing in place as prescribed N/A Experienced any changes in pain level or No management Left Footwear Regular Shoe Right Footwear Regular Shoe Pain Scale: 0-10 Numeric Is Patient Pain Free? Yes WC - Nurse 1 - General Ulcer Measurement Start: 02/07/23 09:33 Freq: Status: Active Protocol: Activity Type Activity Date Activity User E-sign Co-sign Detail Recorded Client Recorded Date Recorded By Document 02/07/23 09:34 KW [id number] 02/07/23 09:43 KW Document 02/14/23 09:04 DL [id number] 02/14/23 09:09 DL Edit Result 02/14/23 09:04 DL (1) [id number] 02/14/23 09:11 DL Document 02/17/23 13:06 MW [id number] 02/17/23 13:07 MW Document 02/21/23 09:38 MW [id number] 02/21/23 09:42 MW (1) #11 R Groin - Undermining/Tunneling Starts (O'clock) => 6 - Undermining/Tunneling Ends (O'clock) => 7 - Maximum Distance (cm) => 0.3 02/07/23 02/14/23 02/17/23 09:34 09:04 13:06 Wound Center Nurse 1 #11 R Groin -Combined with other wound No -Current Size (cm) - Length 2.1 1.9 -Current Size (cm) - Width 1.1 0.6 -Current Size (cm) - Depth 0.2 0.4 -Total Square Cm 2.31 1.14 -Epithelialization -Tunneling No -Undermining/Tunneling No -Undermining/Tunneling Starts (O'clock 6 ) -Undermining/Tunneling Ends (O'clock) 7 -Maximum Distance (cm) 0.3 -Circular Undermining No -Exudate Amt Small Small -Exudate Type Serosanguineous Serosanguineous -Wound Margin Distinct, Thickened & Outline Rolled Under Attached -Granulation Amt Large (67-100%) Large (67-100%) -Granulation Quality Red Diagonal -Slough/Fibrin Yes -Necrosis Amt Small (1-33%) Small (1-33%) -Necrotic Tissue Type Adherent Slough -Structure Exposed N/A -Texture (Blanche-wound Skin Appearance) Assessed Scarring Assessed, Scarring -Moisture (Blanche-wound Skin Appearance) Assessed Dry/Scaly Assessed,Dry/ Scaly -Color (Blanche-wound Skin Appearance) Assessed No Abnormality No Abnormality, Assessed -Temperature (Blanche-wound Skin No Abnormality No Abnormality No Abnormality Appearance) (Pt Warm) (Pt Warm) (Pt Warm) -Tenderness on Palpation (Blanche-wound No No No Skin Appearance) -Ulcer Cleansing Rinsed/ Rinsed/ Soap and Water Irrigated with Irrigated with Saline Saline -Foul Odor after Cleansing No No No -Anesthetic Used 4% Lidocaine 4% Lidocaine Solution Solution Lower Limb Edema Present No 02/21/23 09:38 Wound Center Nurse 1 #11 R Groin -Combined with other wound No -Current Size (cm) - Length 1.8 -Current Size (cm) - Width 1.0 -Current Size (cm) - Depth 0.3 -Total Square Cm 1.80 -Epithelialization None Present -Tunneling No -Undermining/Tunneling No -Undermining/Tunneling Starts (O'clock ) -Undermining/Tunneling Ends (O'clock) -Maximum Distance (cm) -Circular Undermining No -Exudate Amt Small -Exudate Type Serosanguineous -Wound Margin Fibrotic Scar, Thickened Scar -Granulation Amt Large (67-100%) -Granulation Quality Diagonal -Slough/Fibrin Yes -Necrosis Amt Small (1-33%) -Necrotic Tissue Type Adherent Slough -Structure Exposed N/A -Texture (Blanche-wound Skin Appearance) Assessed, Scarring -Moisture (Blanche-wound Skin Appearance) Assessed,Dry/ Scaly -Color (Blanche-wound Skin Appearance) No Abnormality, Assessed -Temperature (Blanche-wound Skin No Abnormality Appearance) (Pt Warm) -Tenderness on Palpation (Blanche-wound No Skin Appearance) -Ulcer Cleansing Rinsed/ Irrigated with Saline -Foul Odor after Cleansing No -Anesthetic Used 4% Lidocaine Solution Lower Limb Edema Present No WC - Nurse 2 - General Ulcer CM Notes Start: 02/07/23 09:33 Freq: Status: Active Protocol: Activity Type Activity Date Activity User E-sign Co-sign Detail Recorded Client Recorded Date Recorded By Document 02/07/23 12:32 PL [id number] 02/07/23 12:33 PL Document 02/14/23 12:10 PL [id number] 02/14/23 12:11 PL Document 02/21/23 12:21 PL [id number] 02/21/23 12:22 PL 02/07/23 02/14/23 02/21/23 12:32 12:10 12:21 Wound Center Nurse 2 #11 R Groin -Time 10:22 09:15 09:46 -Correct Patient Yes Yes Yes -Correct Side, Site, Position Yes Yes Yes -Correct Procedure Yes Yes Yes -Procedure Performed Yes Yes Yes -Type of Procedure Debridement Debridement Debridement -Clinical Debridement Subcutaneous Subcutaneous Subcutaneous -Tissue Removed Subcutaneous Subcutaneous Subcutaneous -Post Debridement (cm) - Length 2.1 1.9 1.8 -Post Debridement (cm) - Width 1.1 0.6 1.0 -Post Debridement (cm) - Depth 0.2 0.4 0.3 -Total Square (Post) (cm) 2.31 1.14 1.80 -Area of Debridement (cm) - Length 2.1 1.9 1.8 -Area of Debridement (cm) - Width 1.1 0.6 1.0 -Total Square (Area) (cm) 2.31 1.14 1.80 -Tunneling No No No -Undermining/Tunneling No No No -Circular Undermining No No No -Wound/Ulcer Outcome Not Healed Not Healed Not Healed -Ulcer Cleansing Rinsed/ Rinsed/ Rinsed/ Irrigated with Irrigated with Irrigated with Saline Saline Saline -Foul Odor after Cleansing No No No -Bioengineered Tissue No No No -Bleeding Controlled with Pressure Pressure Pressure -Treatment Response Procedure Procedure Procedure Tolerated Well Tolerated Well Tolerated Well -Debridement - Subq, 1st 20sq cm Yes No Yes Pain Scale: 0-10 Numeric Is Patient Pain Free? Yes Yes Yes WC - Nurse 3 - General Ulcer D/C NN Start: 02/07/23 09:33 Freq: Status: Active Protocol: Activity Type Activity Date Activity User E-sign Co-sign Detail Recorded Client Recorded Date Recorded By Document 02/07/23 11:00 MW [id number] 02/07/23 11:02 MW Document 02/14/23 09:43 MW Desktop 02/14/23 09:44 MW Document 02/17/23 13:06 MW [id number] 02/17/23 13:07 MW 02/07/23 02/14/23 02/17/23 11:00 09:43 13:06 Wound Care Center Nurse 3 #11 R Groin -Ulcer Cleansing Rinsed/ Rinsed/ Soap and Water Irrigated with Irrigated with Saline Saline -Foul Odor after Cleansing No No -Negative Pressure Wound Therapy Start Continue Continue -Setting (mmHg) 125 125 125 -Negative Pressure is Continuous Continuous -Other Dressing blue foam blue foam blue foam -NPWT Application Charge NPWT </= 50 sq NPWT > 50 sq cm NPWT </= 50 sq cm (disp) ($) (disp) ($) cm (disp) ($) Treatment Response Procedure Procedure Procedure Tolerated Well Tolerated Well Tolerated Well Vital Signs Temperature (97.8 F-99.1 F) 97.3 F L Temperature Source Temporal Pulse Rate (60-100) 89 Pulse Location Monitor Respiratory Rate (12-18) 16 Respiratory rate source Observation Oxygen Delivery Method Room Air Blood Pressure (90/60-120/80) 147/79 H Blood Pressure Mean 101 Source Monitor Position Sitting Blood Pressure Location Right Arm Pain Scale: 0-10 Numeric Is Patient Pain Free? Yes Yes Yes Teaching: Wound Center Dressing Your Wound -Person Taught Patient -Teaching Method Discussion -Response to teaching Return demonstration Snap Vac use/care -Person Taught Patient -Teaching Method Discussion, Demonstration -Response to teaching Verbalize understanding WC - Visit Discharge Discharge Condition Stable Stable Stable Ambulatory Status Ambulatory Ambulatory,Cane Ambulatory Transportation Private Auto Private Auto Private Auto Accompanied by self self self Medication Reconcilliation completed & No No No provided to patient/care provider Clinical Summary of Care Provided Yes Yes Yes 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 (2) Soft tissue radionecrosis: CODE(S): L59.8 - Other specified disorders of the skin and subcutaneous tissue related to radiation; Y84.2 - Radiological procedure and radiotherapy as the cause of abnormal reaction of the patient, or of later complication, without mention of misadventure at the time of the procedure (3) soft tissue radiation injury: (4) Radiation injury: CODE(S): T66.XXXA - Radiation sickness, unspecified, initial encounter QUALIFIERS: Encounter type: subsequent encounter Qualified Code(s): T66.XXXD - Radiation sickness, unspecified, subsequent encounter (5) History of melanoma: CODE(S): Z85.820 - Personal history of malignant melanoma of skin PLAN: Plan This is a 68-year-old female with a severe soft tissue radiation injury that occurred as result of radiation treatments for malignant melanoma many years ago. A total of 5 EpiFix allografts have been placed in the recent past. Little improvement was noted. More recently, we have implemented a Snap VAC. Because of the location in the right groin, an intertriginous zone, subject to perspiration and repetitive motion, the seal of the snap VAC cannot be maintained for more than 48 to 72 hours. In some cases, the seal was maintained for only 24 hours. Therefore, it is necessary to revert back to previous treatment modalities. We are to implement the use of Fibracol topically to the ulceration on a daily basis. The patient is well acquainted with the appropriate means of application. It is recognized that there has been a lack of significant healing progress, thought to be due to the compromised arterial supply as a result of severe soft tissue radionecrosis. Recent culture results have been noted, and appear to be normal skin mare, rather than pathological organisms. The patient is to return in 1 week for reassessment. We will continue to consider other modalities of treatment, as treatment to date has met with very little improvement. We may consider treatment modalities which have not been previously implemented. Other options which have been considered include referral to a tertiary care center for consideration of myocutaneous flap reconstruction of the involved area. However, the described potential complications and needed rehabilitation have given the patient reservations about proceeding with such aggressive management in the past. Total time: 26 minutes
[2023-02-28 10:02] VITALS: BP 149/89; PULSE 83; RESP 18; TEMP 36.6; BMI 29.8
--- NOTE | 2023-02-28 12:05 | PCM.WC.HP ---
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 The patient was diagnosed with melanoma of the right calf in the 1969's. The melanoma was metastatic to lymph nodes. The patient underwent excision of her melanoma with lymphadenectomy in the right groin. She also underwent lengthy radiation treatments at the [facility] in [place], [place]. Melanoma recurred, and the patient was subsequently treated with monoclonal antibodies in 1984. However, due to the presence of severe radiation injury, persisting open wounds in the right thigh, MRSA infection, and severe radiation injury to the right femoral artery, the patient subsequently required right above-knee amputation in 2002. 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 Treatment included local ulcer care and hyperbaric oxygen therapy. She underwent a total of nearly 90 treatments of hyperbaric oxygen therapy. It is known that she tolerated the therapies well, and derived significant benefit. 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 She has also undergone several more sessions of hyperbaric oxygen therapy. She also received a series of 10 EpiFix allografts in the course of previous treatment. Each of the patient's prior courses of treatment in our facility have been protracted, with difficulties encountered in achieving complete healing. Her most recent course of treatment ended with successful healing and discharge in February 2021. The patient presented at this time with a recurrence of her right groin ulceration, again thought to be secondary to soft tissue radiation injury. The ulceration recurred spontaneously approximately 2-3 weeks prior to her presentation. The patient indicates that her health history has not changed since she was last treated in our facility. 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 Home Medications famotidine 20 mg tablet 20 mg PO 06/20/17 [History Last Taken Unknown] pravastatin 20 mg tablet 20 mg PO DAILY 06/20/17 [History Last Taken Unknown] famotidine 40 mg tablet PO 90 days ##90 12/26/17 [History Last Taken Unknown] pravastatin 20 mg tablet PO 90 days ##90 12/26/17 [History Last Taken Unknown] cyclobenzaprine 10 mg tablet 10 mg PO TID 02/07/23 [History Last Taken 02/07/23] Allergy/AdvReac Type Severity Reaction Status Date / Time No Known Allergies Allergy Verified 02/15/22 09:08 Family History Other Heart disease Hypertension Surgical History Hx of AKA (above knee amputation) Social History Smoking Status: Former smoker alcohol intake: current alcohol intake frequency: holidays/special occasions only Vital Signs Vital Signs Vital Signs: 02/28/23 10:02 Temperature 97.9 F Temperature Source Temporal Pulse Rate 83 Respiratory Rate 18 Blood Pressure 149/89 H Blood Pressure Mean 109 Blood Pressure Source Monitor Blood Pressure Position Sitting Blood Pressure Location Left Arm Oxygen Delivery Method Room Air Weight Weight: 196 lb 1.696 oz Body Mass Index (BMI) 29.8 Physical Exam Const alert, oriented x3, no apparent distress and well nourished General Appearance: cooperative, comfortable, well kempt and well developed Orientation / Consciousness: awake, oriented to person, oriented to place and oriented to time HEENT normocephalic, head/scalp atraumatic and hearing grossly normal bilaterally HEENT Narrative: Able to visualize her ear tubes bilaterally. Right tube appears to be shifting out of TM. Head and Scalp: normal to inspection, normocephalic and atraumatic Face and Sinus: normal facial exam External Ear: external ears normal Eyes EOMs intact bilaterally General Eye: normal appearance of both eyes Resp normal respiratory effort, normal air movement, no retractions and no use of accessory muscles Effort and Inspection: able to speak in complete sentences Cardio regular rate and regular rhythm Skin Wound Narrative: A well-healed right above-knee amputation stump is noted. An ulceration persists in the patient's right groin. There is a small amount of bioburden and nonviable tissue present. Dimensions are documented elsewhere. There has been no significant improvement in the appearance of the ulceration. There is no sign of infection or cellulitis. Neuro oriented x3, CN's II-XII intact bilaterally, moves all extremities and no focal motor deficits Sensorium / Orientation: awake, alert, oriented to person, oriented to place and oriented to time Psych affect normal Appearance: grossly normal, appropriate and well kempt Attitude: calm and engaged Activity / Motor Behavior: appropriate eye contact Speech: normal speech Thought Process: normal thought process Attention / Concentration: attention grossly intact Insight: insight good Debridement Note Debridement Note Wound debrided: Right groin ulceration, soft tissue radionecrosis Laterality: Right Type of Debridement: Excisional debridement Anesthesia Used: 5% Lidocaine Gel Depth: Down to and including healthy tissue and in the subcutaneous layer Percentage of wound debrided: 100 Instrument Used: 5mm curette Tissue Removed: Bioburden and nonviable tissue Severity: Fat Layer Exposed Amount of bleeding with debridement: Mild Bleeding Controlled with: Compression and gauze Patient tolerated procedure: Patient tolerated procedure well Post-Debridement Measurements and Additional Note: Post-Debridement Measurements/Treatment - Nurse 1 - General Ulcer Assessment Start: 02/07/23 09:33 Freq: Status: Active Protocol: MICHAEL Activity Type Activity Date Activity User E-sign Co-sign Detail Recorded Client Recorded Date Recorded By Document 02/07/23 09:34 KW [id number] 02/07/23 09:43 KW Document 02/14/23 09:04 DL [id number] 02/14/23 09:09 DL Document 02/17/23 13:06 MW [id number] 02/17/23 13:07 MW Document 02/21/23 09:38 MW [id number] 02/21/23 09:42 MW Document 02/28/23 10:02 KW [id number] 02/28/23 10:04 KW 02/07/23 02/14/23 02/17/23 09:34 09:04 13:06 - Today's Visit Information Type of service Follow-up Visit Follow-up Visit Nurse-only ([facility] ([facility]ician/[facility] Visit ) ) Arrival Mode Ambulatory Ambulatory Ambulatory Transfer Assistance None None Accompanied by self Patient Identification Verified (Name & Yes Yes ) Patient Requires Transmission-Based No No Precautions Safety Precautions NA Height and Weight Body Mass Index (BMI) 29.8 29.8 29.8 BMI Classification Overweight Overweight Overweight Vital Signs Temperature (97.8 F-99.1 F) 96.4 F L 97 F L 97.3 F L Temperature Source Temporal Temporal Temporal Pulse Rate (60-100) 76 98 89 Pulse Location Monitor Monitor Monitor Respiratory Rate (12-18) 16 20 H 16 Respiratory rate source Observation Observation Observation Oxygen Delivery Method Room Air Room Air Blood Pressure (90/60-120/80) 146/81 H 149/88 H 147/79 H Blood Pressure Mean 102 108 101 Source Monitor Monitor Position Sitting Sitting Blood Pressure Location Left Arm Right Arm History Since Last Visit- (Skip if this is Patient's initial visit) Have you changed medications since your Yes No No last visit? Any new allergies or adverse reactions No No No Had a fall/change in ADL's that may No No No increase risk of falls Signs or symptoms of abuse and/or No No No neglect since last visit Have you been in the hospital since your No No No last visit? Has dressing in place as prescribed Yes Yes Yes Has compression in place as prescribed No N/A N/A Has offloadiing in place as prescribed No Yes N/A Experienced any changes in pain level or No No No management Left Footwear Regular Shoe Regular Shoe Right Footwear No Footwear Regular Shoe Pain Scale: 0-10 Numeric Is Patient Pain Free? Yes Yes Yes 02/21/23 02/28/23 09:38 10:02 WC - Today's Visit Information Type of service Follow-up Visit Follow-up 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 (Physician/[facility] ) ) Arrival Mode Ambulatory Ambulatory Transfer Assistance None Accompanied by self Patient Identification Verified (Name & Yes Yes ) Patient Requires Transmission-Based No Precautions Safety Precautions NA Height and Weight Body Mass Index (BMI) 29.8 29.8 BMI Classification Overweight Overweight Vital Signs Temperature (97.8 F-99.1 F) 96.8 F L 97.9 F Temperature Source Temporal Temporal Pulse Rate (60-100) 90 83 Pulse Location Monitor Monitor Respiratory Rate (12-18) 16 18 Respiratory rate source Observation Observation Oxygen Delivery Method Room Air Room Air Blood Pressure (90/60-120/80) 154/90 H 149/89 H Blood Pressure Mean 111 109 Source Monitor Monitor Position Sitting Sitting Blood Pressure Location Left Arm Left Arm History Since Last Visit- (Skip if this is Patient's initial visit) Have you changed medications since your No No last visit? Any new allergies or adverse reactions No No Had a fall/change in ADL's that may No No increase risk of falls Signs or symptoms of abuse and/or No No neglect since last visit Have you been in the hospital since your No No last visit? Has dressing in place as prescribed Yes Yes Has compression in place as prescribed N/A N/A Has offloadiing in place as prescribed N/A N/A Experienced any changes in pain level or No No management Left Footwear Regular Shoe Regular Shoe Right Footwear Regular Shoe Other Footwear (Comment) Pain Scale: 0-10 Numeric Is Patient Pain Free? Yes Yes WC - Nurse 1 - General Ulcer Measurement Start: 02/07/23 09:33 Freq: Status: Active Protocol: Activity Type Activity Date Activity User E-sign Co-sign Detail Recorded Client Recorded Date Recorded By Document 02/07/23 09:34 KW [id number] 02/07/23 09:43 KW Document 02/14/23 09:04 DL [id number] 02/14/23 09:09 DL Edit Result 02/14/23 09:04 DL (1) [id number] 02/14/23 09:11 DL Document 02/17/23 13:06 MW [id number] 02/17/23 13:07 MW Document 02/21/23 09:38 MW [id number] 02/21/23 09:42 MW Document 02/28/23 10:02 KW [id number] 02/28/23 10:04 KW (1) #11 R Groin - Undermining/Tunneling Starts (O'clock) => 6 - Undermining/Tunneling Ends (O'clock) => 7 - Maximum Distance (cm) => 0.3 02/07/23 02/14/23 02/17/23 09:34 09:04 13:06 Wound Center Nurse 1 #11 R Groin -Combined with other wound No -Current Size (cm) - Length 2.1 1.9 -Current Size (cm) - Width 1.1 0.6 -Current Size (cm) - Depth 0.2 0.4 -Total Square Cm 2.31 1.14 -Epithelialization -Tunneling No -Undermining/Tunneling No -Undermining/Tunneling Starts (O'clock 6 ) -Undermining/Tunneling Ends (O'clock) 7 -Maximum Distance (cm) 0.3 -Circular Undermining No -Exudate Amt Small Small -Exudate Type Serosanguineous Serosanguineous -Wound Margin Distinct, Thickened & Outline Rolled Under Attached -Granulation Amt Large (67-100%) Large (67-100%) -Granulation Quality [place] -Slough/Fibrin Yes -Necrosis Amt Small (1-33%) Small (1-33%) -Necrotic Tissue Type Adherent Slough -Structure Exposed N/A -Texture (Blanche-wound Skin Appearance) Assessed Scarring Assessed, Scarring -Moisture (Blanche-wound Skin Appearance) Assessed Dry/Scaly Assessed,Dry/ Scaly -Color (Blanche-wound Skin Appearance) Assessed No Abnormality No Abnormality, Assessed -Temperature (Blanche-wound Skin No Abnormality No Abnormality No Abnormality Appearance) (Pt Warm) (Pt Warm) (Pt Warm) -Tenderness on Palpation (Blanche-wound No No No Skin Appearance) -Ulcer Cleansing Rinsed/ Rinsed/ Soap and Water Irrigated with Irrigated with Saline Saline -Foul Odor after Cleansing No No No -Anesthetic Used 4% Lidocaine 4% Lidocaine Solution Solution Lower Limb Edema Present No 02/21/23 02/28/23 09:38 10:02 Wound Center Nurse 1 #11 R Groin -Combined with other wound No -Current Size (cm) - Length 1.8 2.7 -Current Size (cm) - Width 1.0 0.7 -Current Size (cm) - Depth 0.3 0.4 -Total Square Cm 1.80 1.89 -Epithelialization None Present -Tunneling No No -Undermining/Tunneling No No -Undermining/Tunneling Starts (O'clock ) -Undermining/Tunneling Ends (O'clock) -Maximum Distance (cm) -Circular Undermining No No -Exudate Amt Small Small -Exudate Type Serosanguineous Serosanguineous -Wound Margin Fibrotic Scar, Distinct, Thickened Scar Outline Attached -Granulation Amt Large (67-100%) -Granulation Quality [place] -Slough/Fibrin Yes -Necrosis Amt Small (1-33%) Small (1-33%) -Necrotic Tissue Type Adherent Slough Adherent Slough -Structure Exposed N/A -Texture (Blanche-wound Skin Appearance) Assessed, Assessed Scarring -Moisture (Blanche-wound Skin Appearance) Assessed,Dry/ Assessed Scaly -Color (Blanche-wound Skin Appearance) No Abnormality, Assessed Assessed -Temperature (Blanche-wound Skin No Abnormality No Abnormality Appearance) (Pt Warm) (Pt Warm) -Tenderness on Palpation (Blanche-wound No Skin Appearance) -Ulcer Cleansing Rinsed/ Soap and Water Irrigated with Saline -Foul Odor after Cleansing No No -Anesthetic Used 4% Lidocaine 4% Lidocaine Solution Solution Lower Limb Edema Present No NA WC - Nurse 2 - General Ulcer CM Notes Start: 02/07/23 09:33 Freq: Status: Active Protocol: Activity Type Activity Date Activity User E-sign Co-sign Detail Recorded Client Recorded Date Recorded By Document 02/07/23 12:32 PL [id number] 02/07/23 12:33 PL Document 02/14/23 12:10 PL [id number] 02/14/23 12:11 PL Document 02/21/23 12:21 PL [id number] 02/21/23 12:22 PL 02/07/23 02/14/23 02/21/23 12:32 12:10 12:21 Wound Center Nurse 2 #11 R Groin -Time 10:22 09:15 09:46 -Correct Patient Yes Yes Yes -Correct Side, Site, Position Yes Yes Yes -Correct Procedure Yes Yes Yes -Procedure Performed Yes Yes Yes -Type of Procedure Debridement Debridement Debridement -Clinical Debridement Subcutaneous Subcutaneous Subcutaneous -Tissue Removed Subcutaneous Subcutaneous Subcutaneous -Post Debridement (cm) - Length 2.1 1.9 1.8 -Post Debridement (cm) - Width 1.1 0.6 1.0 -Post Debridement (cm) - Depth 0.2 0.4 0.3 -Total Square (Post) (cm) 2.31 1.14 1.80 -Area of Debridement (cm) - Length 2.1 1.9 1.8 -Area of Debridement (cm) - Width 1.1 0.6 1.0 -Total Square (Area) (cm) 2.31 1.14 1.80 -Tunneling No No No -Undermining/Tunneling No No No -Circular Undermining No No No -Wound/Ulcer Outcome Not Healed Not Healed Not Healed -Ulcer Cleansing Rinsed/ Rinsed/ Rinsed/ Irrigated with Irrigated with Irrigated with Saline Saline Saline -Foul Odor after Cleansing No No No -Bioengineered Tissue No No No -Bleeding Controlled with Pressure Pressure Pressure -Treatment Response Procedure Procedure Procedure Tolerated Well Tolerated Well Tolerated Well -Debridement - Subq, 1st 20sq cm Yes No Yes Pain Scale: 0-10 Numeric Is Patient Pain Free? Yes Yes Yes WC - Nurse 3 - General Ulcer D/C NN Start: 02/07/23 09:33 Freq: Status: Active Protocol: Activity Type Activity Date Activity User E-sign Co-sign Detail Recorded Client Recorded Date Recorded By Document 02/07/23 11:00 MW [id number] 02/07/23 11:02 MW Document 02/14/23 09:43 MW Desktop 02/14/23 09:44 MW Document 02/17/23 13:06 MW [id number] 02/17/23 13:07 MW 02/07/23 02/14/23 02/17/23 11:00 09:43 13:06 Wound Care Center Nurse 3 #11 R Groin -Ulcer Cleansing Rinsed/ Rinsed/ Soap and Water Irrigated with Irrigated with Saline Saline -Foul Odor after Cleansing No No -Negative Pressure Wound Therapy Start Continue Continue -Setting (mmHg) 125 125 125 -Negative Pressure is Continuous Continuous -Other Dressing blue foam blue foam blue foam -NPWT Application Charge NPWT </= 50 sq NPWT > 50 sq cm NPWT </= 50 sq cm (disp) ($) (disp) ($) cm (disp) ($) Treatment Response Procedure Procedure Procedure Tolerated Well Tolerated Well Tolerated Well Vital Signs Temperature (97.8 F-99.1 F) 97.3 F L Temperature Source Temporal Pulse Rate (60-100) 89 Pulse Location Monitor Respiratory Rate (12-18) 16 Respiratory rate source Observation Oxygen Delivery Method Room Air Blood Pressure (90/60-120/80) 147/79 H Blood Pressure Mean 101 Source Monitor Position Sitting Blood Pressure Location Right Arm Pain Scale: 0-10 Numeric Is Patient Pain Free? Yes Yes Yes Teaching: Wound Center Dressing Your Wound -Person Taught Patient -Teaching Method Discussion -Response to teaching Return demonstration Snap Vac use/care -Person Taught Patient -Teaching Method Discussion, Demonstration -Response to teaching Verbalize understanding WC - Visit Discharge Discharge Condition Stable Stable Stable Ambulatory Status Ambulatory Ambulatory,Cane Ambulatory Transportation Private Auto Private Auto Private Auto Accompanied by self self self Medication Reconcilliation completed & No No No provided to patient/care provider Clinical Summary of Care Provided Yes Yes Yes 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 (2) Soft tissue radionecrosis: CODE(S): L59.8 - Other specified disorders of the skin and subcutaneous tissue related to radiation; Y84.2 - Radiological procedure and radiotherapy as the cause of abnormal reaction of the patient, or of later complication, without mention of misadventure at the time of the procedure (3) soft tissue radiation injury: (4) Radiation injury: CODE(S): T66.XXXA - Radiation sickness, unspecified, initial encounter QUALIFIERS: Encounter type: subsequent encounter Qualified Code(s): T66.XXXD - Radiation sickness, unspecified, subsequent encounter (5) History of melanoma: CODE(S): Z85.820 - Personal history of malignant melanoma of skin PLAN: Plan This is a 68-year-old female with a severe soft tissue radiation injury that occurred as result of radiation treatments for malignant melanoma many years ago. A total of 5 EpiFix allografts have been placed in the recent past. Little improvement was noted. More recently, we have implemented a Snap VAC. Because of the location in the right groin, an intertriginous zone, subject to perspiration and repetitive motion, the seal of the snap VAC could not be maintained for more than 48 to 72 hours. In some cases, the seal was maintained for only 24 hours. Therefore, it was necessary to transition to alternative treatment modalities. We are to implement the use of Medihoney Gel, which will be applied topically on a daily basis, and the wound packed with gauze. The patient has been instructed in the appropriate means of application. It is recognized that there has been a lack of significant healing progress, thought to be due to the compromised arterial supply as a result of severe soft tissue radionecrosis. Recent culture results have been noted, and appear to be normal skin mare, rather than pathological organisms. The patient is to return in 2 weeks for reassessment. We continue to consider treatment modalities which have not been previously implemented. Other options which have been considered include referral to a tertiary care center for consideration of myocutaneous flap reconstruction of the involved area. However, the described potential complications and needed rehabilitation have given the patient reservations about proceeding with such aggressive management in the past. Total time: 28 minutes
== END 2023-03-09 23:59 | disposition home or self-care (01) ==
LOC: WC 09:30
PROVIDERS: PCP Family Medicine; Visit Provider Surgery
DX: L97.112 Non-pressure chronic ulcer of right thigh with fat layer exposed (principal); Z89.611 Acquired absence of right leg above knee; Z87.891 Personal history of nicotine dependence; Z92.3 Personal history of irradiation; Z85.820 Personal history of malignant melanoma of skin; Y84.2 Radiological procedure and radiotherapy as the cause of abnormal reaction of the patient, or of later complication, without mention of misadventure at the time of the procedure; T66.XXXD Radiation sickness, unspecified, subsequent encounter; L59.8 Other specified disorders of the skin and subcutaneous tissue related to radiation
CPT/HCPCS: 11042; 97607; 97608

== ENCOUNTER 2023-04-04 09:15 | Outpatient (RCR) | payer MEDICARE, OTHER, SELFPAY ==
[2023-03-10 00:15] VITALS: BP 149/89; PULSE 83; RESP 18; TEMP 36.6; BMI 29.8
[2023-03-14 09:28] VITALS: BP 166/96; PULSE 91; RESP 16; TEMP 36.2; BMI 29.8
--- NOTE | 2023-03-14 09:49 | PCM.WC.HP ---
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 The patient was diagnosed with melanoma of the right calf in the 1969's. The melanoma was metastatic to lymph nodes. The patient underwent excision of her melanoma with lymphadenectomy in the right groin. She also underwent lengthy radiation treatments at the [facility] in [place], [place]. Melanoma recurred, and the patient was subsequently treated with monoclonal antibodies in 1984. However, due to the presence of severe radiation injury, persisting open wounds in the right thigh, MRSA infection, and severe radiation injury to the right femoral artery, the patient subsequently required right above-knee amputation in 2002. 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 Treatment included local ulcer care and hyperbaric oxygen therapy. She underwent a total of nearly 90 treatments of hyperbaric oxygen therapy. It is known that she tolerated the therapies well, and derived significant benefit. 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 She has also undergone several more sessions of hyperbaric oxygen therapy. She also received a series of 10 EpiFix allografts in the course of previous treatment. Each of the patient's prior courses of treatment in our facility have been protracted, with difficulties encountered in achieving complete healing. Her most recent course of treatment ended with successful healing and discharge in February 2021. The patient presented at this time with a recurrence of her right groin ulceration, again thought to be secondary to soft tissue radiation injury. The ulceration recurred spontaneously approximately 2-3 weeks prior to her presentation. The patient indicates that her health history has not changed since she was last treated in our facility. 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 Home Medications famotidine 20 mg tablet 20 mg PO 06/20/17 [History Last Taken Unknown] pravastatin 20 mg tablet 20 mg PO DAILY 06/20/17 [History Last Taken Unknown] famotidine 40 mg tablet PO 90 days ##90 12/26/17 [History Last Taken Unknown] pravastatin 20 mg tablet PO 90 days ##90 12/26/17 [History Last Taken Unknown] cyclobenzaprine 10 mg tablet 10 mg PO TID 02/07/23 [History Last Taken 02/07/23] Allergy/AdvReac Type Severity Reaction Status Date / Time No Known Allergies Allergy Verified 02/15/22 09:08 Family History Other Heart disease Hypertension Surgical History Hx of AKA (above knee amputation) Social History Smoking Status: Former smoker alcohol intake: current alcohol intake frequency: holidays/special occasions only Vital Signs Vital Signs Vital Signs: 03/14/23 09:28 Temperature 97.1 F L Temperature Source Temporal Pulse Rate 91 Respiratory Rate 16 Blood Pressure 166/96 H Blood Pressure Mean 119 Blood Pressure Source Monitor Blood Pressure Position Sitting Blood Pressure Location Left Arm Oxygen Delivery Method Room Air Weight Weight: 196 lb 1.696 oz Body Mass Index (BMI) 29.8 Physical Exam Const alert, oriented x3, no apparent distress and well nourished General Appearance: cooperative, comfortable, well kempt and well developed Orientation / Consciousness: awake, oriented to person, oriented to place and oriented to time HEENT normocephalic, head/scalp atraumatic and hearing grossly normal bilaterally HEENT Narrative: Able to visualize her ear tubes bilaterally. Right tube appears to be shifting out of TM. Head and Scalp: normal to inspection, normocephalic and atraumatic Face and Sinus: normal facial exam External Ear: external ears normal Eyes EOMs intact bilaterally General Eye: normal appearance of both eyes Resp normal respiratory effort, normal air movement, no retractions and no use of accessory muscles Effort and Inspection: able to speak in complete sentences Cardio regular rate and regular rhythm Skin Wound Narrative: A well-healed right above-knee amputation stump is noted. An ulceration persists in the patient's right groin. There is a small amount of bioburden and nonviable tissue present. Dimensions are documented elsewhere. The ulceration has decreased slightly in size. There has been slight improvement in the appearance of the ulceration. There is no sign of infection or cellulitis. Neuro oriented x3, CN's II-XII intact bilaterally, moves all extremities and no focal motor deficits Sensorium / Orientation: awake, alert, oriented to person, oriented to place and oriented to time Psych affect normal Appearance: grossly normal, appropriate and well kempt Attitude: calm and engaged Activity / Motor Behavior: appropriate eye contact Speech: normal speech Thought Process: normal thought process Attention / Concentration: attention grossly intact Insight: insight good Debridement Note Debridement Note Wound debrided: Right groin ulceration, soft tissue radionecrosis Laterality: Right Type of Debridement: Excisional debridement Anesthesia Used: 5% Lidocaine Gel Depth: Down to and including healthy tissue and in the subcutaneous layer Percentage of wound debrided: 100 Instrument Used: 5mm curette Tissue Removed: Bioburden and nonviable tissue Severity: Fat Layer Exposed Amount of bleeding with debridement: Mild Bleeding Controlled with: Compression and gauze Patient tolerated procedure: Patient tolerated procedure well Post-Debridement Measurements and Additional Note: Post-Debridement Measurements/Treatment - Nurse 1 - General Ulcer Assessment Start: 03/14/23 09:28 Freq: Status: Active Protocol: [email or web address] Activity Type Activity Date Activity User E-sign Co-sign Detail Recorded Client Recorded Date Recorded By Document 03/14/23 09:28 [facility] [id number] 03/14/23 09:34 [facility] 03/14/23 09:28 - Today's Visit Information Type of service Follow-up 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/DIRECTOR SPEECH ) Arrival Mode Ambulatory Transfer Assistance None Patient Identification Verified (Name & Yes ) Patient Requires Transmission-Based No Precautions Height and Weight Body Mass Index (BMI) 29.8 BMI Classification Overweight Vital Signs Temperature (97.8 F-99.1 F) 97.1 F L Temperature Source Temporal Pulse Rate (60-100) 91 Pulse Location Monitor Respiratory Rate (12-18) 16 Respiratory rate source Observation Oxygen Delivery Method Room Air Blood Pressure (90/60-120/80) 166/96 H Blood Pressure Mean 119 Source Monitor Position Sitting Blood Pressure Location Left Arm History Since Last Visit- (Skip if this is Patient's initial visit) Have you changed medications since your No last visit? Any new allergies or adverse reactions No Had a fall/change in ADL's that may No increase risk of falls Signs or symptoms of abuse and/or No neglect since last visit Have you been in the hospital since your No last visit? Has dressing in place as prescribed Yes Has compression in place as prescribed N/A Has offloadiing in place as prescribed N/A Experienced any changes in pain level or No management Pain Scale: 0-10 Numeric Is Patient Pain Free? Yes - Nurse 1 - General Ulcer Measurement Start: 03/14/23 09:28 Freq: Status: Active Protocol: Activity Type Activity Date Activity User E-sign Co-sign Detail Recorded Client Recorded Date Recorded By Document 03/14/23 09:28 [facility] [id number] 03/14/23 09:34 [facility] 03/14/23 09:28 Wound Center Nurse 1 #11 R Groin -Combined with other wound No -Current Size (cm) - Length 1.8 -Current Size (cm) - Width 0.7 -Current Size (cm) - Depth 0.6 -Total Square Cm 1.26 -Date of Last Picture (Recall this 03/14/23 field) -Photo Taken Yes -Epithelialization None Present -Tunneling No -Undermining/Tunneling No -Circular Undermining No -Exudate Amt Medium -Exudate Type Serosanguineous -Wound Margin Distinct, Outline Attached -Granulation Amt Medium (34-66%) -Granulation Quality Red -Slough/Fibrin Yes -Necrosis Amt Medium (34-66%) -Necrotic Tissue Type Adherent Slough -Texture (Blanche-wound Skin Appearance) Assessed, Scarring -Moisture (Blanche-wound Skin Appearance) Assessed,Dry/ Scaly -Color (Blanche-wound Skin Appearance) Assessed -Temperature (Blanche-wound Skin No Abnormality Appearance) (Pt Warm) -Tenderness on Palpation (Blanche-wound No Skin Appearance) -Ulcer Cleansing Rinsed/ Irrigated with Saline -Foul Odor after Cleansing No -Anesthetic Used 5% Lidocaine Gel WC - Nurse 3 - General Ulcer D/C NN Start: 03/14/23 09:28 Freq: Status: Active Protocol: Activity Type Activity Date Activity User E-sign Co-sign Detail Recorded Client Recorded Date Recorded By Document 03/14/23 09:45 [facility] [id number] 03/14/23 09:45 [facility] 03/14/23 09:45 Wound Care Center Nurse 3 -Ulcer Cleansing Rinsed/ Irrigated with Saline -Foul Odor after Cleansing No -Other Dressing MEDIHONEY -Primary Dressing Covered/Secured with Dry Gauze, Secured with Tape -Other Covering PT APPLIES OWN DRSG Treatment Response Procedure Tolerated Well Pain Scale: 0-10 Numeric Is Patient Pain Free? 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 (2) Soft tissue radionecrosis: CODE(S): L59.8 - Other specified disorders of the skin and subcutaneous tissue related to radiation; Y84.2 - Radiological procedure and radiotherapy as the cause of abnormal reaction of the patient, or of later complication, without mention of misadventure at the time of the procedure (3) soft tissue radiation injury: (4) Radiation injury: CODE(S): T66.XXXA - Radiation sickness, unspecified, initial encounter QUALIFIERS: Encounter type: subsequent encounter Qualified Code(s): T66.XXXD - Radiation sickness, unspecified, subsequent encounter (5) History of melanoma: CODE(S): Z85.820 - Personal history of malignant melanoma of skin PLAN: Plan This is a 68-year-old female with a severe soft tissue radiation injury that occurred as result of radiation treatments for malignant melanoma many years ago. A total of 5 EpiFix allografts have been placed in the recent past. Little improvement was noted. More recently, we implemented a Snap VAC. Because of the location in the right groin, an intertriginous zone, subject to perspiration and repetitive motion, the seal of the snap VAC could not be maintained for more than 48 to 72 hours. In some cases, the seal was maintained for only 24 hours. Therefore, it was necessary to transition to alternative treatment modalities. We are to continue the use of Medihoney Gel, which will be applied topically on a daily basis, and the wound packed with gauze. The patient has been instructed in the appropriate means of application. It is recognized that there has been a lack of significant healing progress, thought to be due to the compromised arterial supply as a result of severe soft tissue radionecrosis. Recent culture results have been noted, and appear to be normal skin mare, rather than pathological organisms. The patient is to return in 2 weeks for reassessment, as she will be on vacation next week. We have considered alternative treatment modalities. Other options under consideration have included referral to a tertiary care center for myocutaneous flap reconstruction of the involved area. However, the described potential complications and needed rehabilitation have given the patient reservations about proceeding with such aggressive management in the past. Total time: 25 minutes
[2023-03-28 09:39] VITALS: BP 143/80; PULSE 82; RESP 20; TEMP 36.4; BMI 29.8
--- NOTE | 2023-03-28 10:38 | PCM.WC.HP ---
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 The patient was diagnosed with melanoma of the right calf in the 1969's. The melanoma was metastatic to lymph nodes. The patient underwent excision of her melanoma with lymphadenectomy in the right groin. She also underwent lengthy radiation treatments at the [facility] in [place], [place]. Melanoma recurred, and the patient was subsequently treated with monoclonal antibodies in 1984. However, due to the presence of severe radiation injury, persisting open wounds in the right thigh, MRSA infection, and severe radiation injury to the right femoral artery, the patient subsequently required right above-knee amputation in 2002. 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 Treatment included local ulcer care and hyperbaric oxygen therapy. She underwent a total of nearly 90 treatments of hyperbaric oxygen therapy. It is known that she tolerated the therapies well, and derived significant benefit. 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 She has also undergone several more sessions of hyperbaric oxygen therapy. She also received a series of 10 EpiFix allografts in the course of previous treatment. Each of the patient's prior courses of treatment in our facility have been protracted, with difficulties encountered in achieving complete healing. Her most recent course of treatment ended with successful healing and discharge in February 2021. The patient presented at this time with a recurrence of her right groin ulceration, again thought to be secondary to soft tissue radiation injury. The ulceration recurred spontaneously approximately 2-3 weeks prior to her presentation. The patient indicates that her health history has not changed since she was last treated in our facility. 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 Home Medications famotidine 20 mg tablet 20 mg PO 06/20/17 [History Last Taken Unknown] pravastatin 20 mg tablet 20 mg PO DAILY 06/20/17 [History Last Taken Unknown] famotidine 40 mg tablet PO 90 days ##90 12/26/17 [History Last Taken Unknown] pravastatin 20 mg tablet PO 90 days ##90 12/26/17 [History Last Taken Unknown] cyclobenzaprine 10 mg tablet 10 mg PO TID 02/07/23 [History Last Taken 02/07/23] Allergy/AdvReac Type Severity Reaction Status Date / Time No Known Allergies Allergy Verified 02/15/22 09:08 Family History Other Heart disease Hypertension Surgical History Hx of AKA (above knee amputation) Social History Smoking Status: Former smoker alcohol intake: current alcohol intake frequency: holidays/special occasions only Vital Signs Vital Signs Vital Signs: 03/28/23 09:39 Temperature 97.5 F L Temperature Source Temporal Pulse Rate 82 Respiratory Rate 20 H Blood Pressure 143/80 H Blood Pressure Mean 101 Blood Pressure Source Monitor Weight Weight: 196 lb 1.696 oz Body Mass Index (BMI) 29.8 Physical Exam Const alert, oriented x3, no apparent distress and well nourished General Appearance: cooperative, comfortable, well kempt and well developed Orientation / Consciousness: awake, oriented to person, oriented to place and oriented to time HEENT normocephalic, head/scalp atraumatic and hearing grossly normal bilaterally HEENT Narrative: Able to visualize her ear tubes bilaterally. Right tube appears to be shifting out of TM. Head and Scalp: normal to inspection, normocephalic and atraumatic Face and Sinus: normal facial exam External Ear: external ears normal Eyes EOMs intact bilaterally General Eye: normal appearance of both eyes Resp normal respiratory effort, normal air movement, no retractions and no use of accessory muscles Effort and Inspection: able to speak in complete sentences Cardio regular rate and regular rhythm Skin Wound Narrative: A well-healed right above-knee amputation stump is noted. An ulceration persists in the patient's right groin. There is a small amount of bioburden and nonviable tissue present. Dimensions are documented elsewhere. The ulceration has decreased in size. There has been mild improvement in the appearance of the ulceration. There is no sign of infection or cellulitis. Neuro oriented x3, CN's II-XII intact bilaterally, moves all extremities and no focal motor deficits Sensorium / Orientation: awake, alert, oriented to person, oriented to place and oriented to time Psych affect normal Appearance: grossly normal, appropriate and well kempt Attitude: calm and engaged Activity / Motor Behavior: appropriate eye contact Speech: normal speech Thought Process: normal thought process Attention / Concentration: attention grossly intact Insight: insight good Debridement Note Debridement Note Wound debrided: Right groin ulceration, soft tissue radionecrosis Laterality: Right Type of Debridement: Excisional debridement Anesthesia Used: 5% Lidocaine Gel Depth: Down to and including healthy tissue and in the subcutaneous layer Percentage of wound debrided: 100 Instrument Used: 5mm curette Tissue Removed: Bioburden and nonviable tissue Severity: Fat Layer Exposed Amount of bleeding with debridement: Mild Bleeding Controlled with: Compression and gauze Patient tolerated procedure: Patient tolerated procedure well Post-Debridement Measurements and Additional Note: Post-Debridement Measurements/Treatment - Nurse 1 - General Ulcer Assessment Start: 03/14/23 09:28 Freq: Status: Active Protocol: MICHAEL Activity Type Activity Date Activity User E-sign Co-sign Detail Recorded Client Recorded Date Recorded By Document 03/14/23 09:[address] [facility] [id number] 03/14/23 09:[address] [facility] Document 03/28/23 09:39 DL Desktop 03/28/23 09:45 DL 03/14/23 03/28/23 09:28 09:39 - Today's Visit Information Type of service Follow-up Visit Follow-up 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/[facility] (Physician/[facility] ) ) Arrival Mode Ambulatory Ambulatory Transfer Assistance None None Patient Identification Verified (Name & Yes Yes ) Patient Requires Transmission-Based No No Precautions Height and Weight Body Mass Index (BMI) 29.8 29.8 BMI Classification Overweight Overweight Vital Signs Temperature (97.8 F-99.1 F) 97.1 F L 97.5 F L Temperature Source Temporal Temporal Pulse Rate (60-100) 91 82 Pulse Location Monitor Respiratory Rate (12-18) 16 20 H Respiratory rate source Observation Observation Oxygen Delivery Method Room Air Blood Pressure (90/60-120/80) 166/96 H 143/80 H Blood Pressure Mean 119 101 Source Monitor Monitor Position Sitting Blood Pressure Location Left Arm History Since Last Visit- (Skip if this is Patient's initial visit) Have you changed medications since your No No last visit? Any new allergies or adverse reactions No No Had a fall/change in ADL's that may No No increase risk of falls Signs or symptoms of abuse and/or No No neglect since last visit Have you been in the hospital since your No No last visit? Has dressing in place as prescribed Yes Yes Has compression in place as prescribed N/A N/A Has offloadiing in place as prescribed N/A Yes Experienced any changes in pain level or No No management Pain Scale: 0-10 Numeric Is Patient Pain Free? Yes Yes WC - Nurse 1 - General Ulcer Measurement Start: 03/14/23 09:28 Freq: Status: Active Protocol: Activity Type Activity Date Activity User E-sign Co-sign Detail Recorded Client Recorded Date Recorded By Document 03/14/23 09:[address] [facility] [id number] 03/14/23 09:34 BM Document 03/28/23 09:39 DL Desktop 03/28/23 09:45 DL 03/14/23 03/28/23 09:28 09:39 Wound Center Nurse 1 #11 R Groin -Combined with other wound No -Current Size (cm) - Length 1.8 1.7 -Current Size (cm) - Width 0.7 0.7 -Current Size (cm) - Depth 0.6 0.4 -Total Square Cm 1.26 1.19 -Date of Last Picture (Recall this 03/14/23 field) -Photo Taken Yes Yes -Epithelialization None Present -Tunneling No -Undermining/Tunneling No -Circular Undermining No -Exudate Amt Medium Small -Exudate Type Serosanguineous Serosanguineous -Wound Margin Distinct, Thickened & Outline Rolled Under Attached -Granulation Amt Medium (34-66%) Large (67-100%) -Granulation Quality Red Gem -Slough/Fibrin Yes -Necrosis Amt Medium (34-66%) None Present (0 %) -Necrotic Tissue Type Adherent Slough -Structure Exposed N/A -Texture (Blanche-wound Skin Appearance) Assessed, Scarring Scarring -Moisture (Blanche-wound Skin Appearance) Assessed,Dry/ No Abnormality Scaly -Color (Blanche-wound Skin Appearance) Assessed No Abnormality -Temperature (Blanche-wound Skin No Abnormality No Abnormality Appearance) (Pt Warm) (Pt Warm) -Tenderness on Palpation (Blanche-wound No No Skin Appearance) -Ulcer Cleansing Rinsed/ Rinsed/ Irrigated with Irrigated with Saline Saline -Foul Odor after Cleansing No No -Anesthetic Used 5% Lidocaine 4% Lidocaine Gel Solution - Nurse 2 - General Ulcer CM Notes Start: 03/14/23 09:28 Freq: Status: Active Protocol: Activity Type Activity Date Activity User E-sign Co-sign Detail Recorded Client Recorded Date Recorded By Document 03/14/23 14:09 [id number] 03/14/23 14:10 PL 03/14/23 14:09 Wound Center Nurse 2 -Time 09:37 -Correct Patient Yes -Correct Side, Site, Position Yes -Correct Procedure Yes -Procedure Performed Yes -Type of Procedure Debridement -Clinical Debridement Subcutaneous -Tissue Removed Subcutaneous -Post Debridement (cm) - Length 1.8 -Post Debridement (cm) - Width 0.7 -Post Debridement (cm) - Depth 0.6 -Total Square (Post) (cm) 1.26 -Area of Debridement (cm) - Length 1.8 -Area of Debridement (cm) - Width 0.7 -Total Square (Area) (cm) 1.26 -Tunneling No -Undermining/Tunneling No -Circular Undermining No -Wound/Ulcer Outcome Not Healed -Ulcer Cleansing Rinsed/ Irrigated with Saline -Foul Odor after Cleansing No -Bioengineered Tissue No -Bleeding Controlled with Pressure -Treatment Response Procedure Tolerated Well -Debridement - Subq, 1st 20sq cm Yes Pain Scale: 0-10 Numeric Is Patient Pain Free? Yes - Nurse 3 - General Ulcer D/C NN Start: 03/14/23 09:28 Freq: Status: Active Protocol: Activity Type Activity Date Activity User E-sign Co-sign Detail Recorded Client Recorded Date Recorded By Document 03/14/23 09:[address] [facility] [id number] 03/14/23 09:[address] [facility] 03/14/23 09:45 Wound Care Center Nurse 3 #11 R Groin -Ulcer Cleansing Rinsed/ Irrigated with Saline -Foul Odor after Cleansing No -Other Dressing MEDIHONEY -Primary Dressing Covered/Secured with Dry Gauze, Secured with Tape -Other Covering PT APPLIES OWN DRSG Treatment Response Procedure Tolerated Well Pain Scale: 0-10 Numeric Is Patient Pain Free? 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 (2) Soft tissue radionecrosis: CODE(S): L59.8 - Other specified disorders of the skin and subcutaneous tissue related to radiation; Y84.2 - Radiological procedure and radiotherapy as the cause of abnormal reaction of the patient, or of later complication, without mention of misadventure at the time of the procedure (3) soft tissue radiation injury: (4) Radiation injury: CODE(S): T66.XXXA - Radiation sickness, unspecified, initial encounter QUALIFIERS: Encounter type: subsequent encounter Qualified Code(s): T66.XXXD - Radiation sickness, unspecified, subsequent encounter (5) History of melanoma: CODE(S): Z85.820 - Personal history of malignant melanoma of skin PLAN: Plan This is a 68-year-old female with a severe soft tissue radiation injury that occurred as result of radiation treatments for malignant melanoma many years ago. A total of 5 EpiFix allografts have been placed in the recent past. Little improvement was noted. More recently, we implemented a Snap VAC. Because of the location in the right groin, an intertriginous zone, subject to perspiration and repetitive motion, the seal of the snap VAC could not be maintained for more than 48 to 72 hours. In some cases, the seal was maintained for only 24 hours. Therefore, it was necessary to transition to alternative treatment modalities. We are to continue the use of Medihoney Gel, which will be applied topically on a daily basis, and the wound packed with gauze. Improvement has been noted recently since the implementation of Medihoney Gel. The patient has been instructed in the appropriate means of application. The lack of progressive healing is thought to be due to the compromised arterial supply as a result of severe soft tissue radionecrosis. Recent culture results have been noted, and appear to be normal skin mare, rather than pathological organisms. The patient is to return in 1 week for reassessment. We have considered alternative treatment modalities. Other options under consideration have included referral to a tertiary care center for myocutaneous flap reconstruction of the involved area. However, the described potential complications and needed rehabilitation have given the patient reservations about proceeding with such aggressive management in the past. Total time: 24 minutes
[2023-04-04 09:16] VITALS: BP 145/80; PULSE 85; RESP 20; TEMP 35.7; BMI 29.8
--- NOTE | 2023-04-04 09:38 | HP.PCM_ITS ---
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 The patient was diagnosed with melanoma of the right calf in the 1969's. The melanoma was metastatic to lymph nodes. The patient underwent excision of her melanoma with lymphadenectomy in the right groin. She also underwent lengthy radiation treatments at the [facility] in [place], [place]. Melanoma recurred, and the patient was subsequently treated with monoclonal antibodies in 1984. However, due to the presence of severe radiation injury, persisting open wounds in the right thigh, MRSA infection, and severe radiation injury to the right femoral artery, the patient subsequently required right above-knee amputation in 2002. 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 Treatment included local ulcer care and hyperbaric oxygen therapy. She underwent a total of nearly 90 treatments of hyperbaric oxygen therapy. It is known that she tolerated the therapies well, and derived significant benefit. 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 She has also undergone several more sessions of hyperbaric oxygen therapy. She also received a series of 10 EpiFix allografts in the course of previous treatment. Each of the patient's prior courses of treatment in our facility have been protracted, with difficulties encountered in achieving complete healing. Her most recent course of treatment ended with successful healing and discharge in February 2021. The patient presented at this time with a recurrence of her right groin ulceration, again thought to be secondary to soft tissue radiation injury. The ulceration recurred spontaneously approximately 2-3 weeks prior to her presentation. The patient indicates that her health history has not changed since she was last treated in our facility. 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 Home Medications famotidine 20 mg tablet 20 mg PO 06/20/17 [History Last Taken Unknown] pravastatin 20 mg tablet 20 mg PO DAILY 06/20/17 [History Last Taken Unknown] famotidine 40 mg tablet PO 90 days ##90 12/26/17 [History Last Taken Unknown] pravastatin 20 mg tablet PO 90 days ##90 12/26/17 [History Last Taken Unknown] cyclobenzaprine 10 mg tablet 10 mg PO TID 02/07/23 [History Last Taken 02/07/23] Allergy/AdvReac Type Severity Reaction Status Date / Time No Known Allergies Allergy Verified 02/15/22 09:08 Family History Other Heart disease Hypertension Surgical History Hx of AKA (above knee amputation) Social History Smoking Status: Former smoker alcohol intake: current alcohol intake frequency: holidays/special occasions only Vital Signs Vital Signs Vital Signs: 04/04/23 09:16 Temperature 96.3 F L Temperature Source Temporal Pulse Rate 85 Respiratory Rate 20 H Blood Pressure 145/80 H Blood Pressure Mean 101 Blood Pressure Source Monitor Weight Weight: 196 lb 1.696 oz Body Mass Index (BMI) 29.8 Physical Exam Const alert, oriented x3, no apparent distress and well nourished General Appearance: cooperative, comfortable, well kempt and well developed Orientation / Consciousness: awake, oriented to person, oriented to place and oriented to time HEENT normocephalic, head/scalp atraumatic and hearing grossly normal bilaterally HEENT Narrative: Able to visualize her ear tubes bilaterally. Right tube appears to be shifting out of TM. Head and Scalp: normal to inspection, normocephalic and atraumatic Face and Sinus: normal facial exam External Ear: external ears normal Eyes EOMs intact bilaterally General Eye: normal appearance of both eyes Resp normal respiratory effort, normal air movement, no retractions and no use of accessory muscles Effort and Inspection: able to speak in complete sentences and symmetric chest movement Cardio regular rate and regular rhythm Skin Wound Narrative: A well-healed right above-knee amputation stump is noted. An ulceration persists in the patient's right groin. There is a small amount of bioburden and nonviable tissue present. Dimensions are documented elsewhere. The ulceration has not changed in size significantly. The base of the ulceration is generally pink and healthy in appearance. There is no sign of infection or cellulitis. Neuro oriented x3, CN's II-XII intact bilaterally, moves all extremities and no focal motor deficits Sensorium / Orientation: awake, alert, oriented to person, oriented to place and oriented to time Psych affect normal Appearance: grossly normal, appropriate and well kempt Attitude: calm and engaged Activity / Motor Behavior: appropriate eye contact Speech: normal speech Thought Process: normal thought process Attention / Concentration: attention grossly intact Insight: insight good Debridement Note Debridement Note Wound debrided: Right groin ulceration, soft tissue radionecrosis Laterality: Right Type of Debridement: Excisional debridement Anesthesia Used: 5% Lidocaine Gel Depth: Down to and including healthy tissue and in the subcutaneous layer Percentage of wound debrided: 100 Instrument Used: 5mm curette Tissue Removed: Bioburden and nonviable tissue Severity: Fat Layer Exposed Amount of bleeding with debridement: Mild Bleeding Controlled with: Compression and gauze Patient tolerated procedure: Patient tolerated procedure well Post-Debridement Measurements and Additional Note: Post-Debridement Measurements/Treatment - Nurse 1 - General Ulcer Assessment Start: 03/14/23 09:28 Freq: Status: Active Protocol: MICHAEL Activity Type Activity Date Activity User E-sign Co-sign Detail Recorded Client Recorded Date Recorded By Document 03/14/23 09:28 [facility] [id number] 03/14/23 09:34 [facility] Document 03/28/23 09:39 DL Desktop 03/28/23 09:45 DL Document 04/04/23 09:16 DL Desktop 04/04/23 09:23 DL 03/14/23 03/28/23 04/04/23 09:28 09:39 09:16 - Today's Visit Information Type of service Follow-up Visit Follow-up Visit Follow-up 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/PACKAGING ASSEMBLER (Physician/PACKAGING ASSEMBLER (Physician/PACKAGING ASSEMBLER ) ) ) Arrival Mode Ambulatory Ambulatory Ambulatory Transfer Assistance None None None Patient Identification Verified (Name & Yes Yes Yes ) Patient Requires Transmission-Based No No No Precautions Height and Weight Body Mass Index (BMI) 29.8 29.8 29.8 BMI Classification Overweight Overweight Overweight Vital Signs Temperature (97.8 F-99.1 F) 97.1 F L 97.5 F L 96.3 F L Temperature Source Temporal Temporal Temporal Pulse Rate (60-100) 91 82 85 Pulse Location Monitor Monitor Respiratory Rate (12-18) 16 20 H 20 H Respiratory rate source Observation Observation Oxygen Delivery Method Room Air Blood Pressure (90/60-120/80) 166/96 H 143/80 H 145/80 H Blood Pressure Mean 119 101 101 Source Monitor Monitor Monitor Position Sitting Blood Pressure Location Left Arm History Since Last Visit- (Skip if this is Patient's initial visit) Have you changed medications since your No No No last visit? Any new allergies or adverse reactions No No No Had a fall/change in ADL's that may No No No increase risk of falls Signs or symptoms of abuse and/or No No No neglect since last visit Have you been in the hospital since your No No last visit? Has dressing in place as prescribed Yes Yes Yes Has compression in place as prescribed N/A N/A Has offloadiing in place as prescribed N/A Yes Yes Experienced any changes in pain level or No No No management Pain Scale: 0-10 Numeric Is Patient Pain Free? Yes Yes Yes WC - Nurse 1 - General Ulcer Measurement Start: 03/14/23 09:28 Freq: Status: Active Protocol: Activity Type Activity Date Activity User E-sign Co-sign Detail Recorded Client Recorded Date Recorded By Document 03/14/23 09:28 [facility] [id number] 03/14/23 09:34 [facility] Document 03/28/23 09:39 DL Desktop 03/28/23 09:45 DL Document 04/04/23 09:16 DL Desktop 04/04/23 09:23 DL 03/14/23 03/28/23 04/04/23 09:28 09:39 09:16 Wound Center Nurse 1 #11 R Groin -Combined with other wound No -Current Size (cm) - Length 1.8 1.7 1.8 -Current Size (cm) - Width 0.7 0.7 0.7 -Current Size (cm) - Depth 0.6 0.4 0.4 -Total Square Cm 1.26 1.19 1.26 -Date of Last Picture (Recall this 03/14/23 field) -Photo Taken Yes Yes Yes -Epithelialization None Present -Tunneling No -Undermining/Tunneling No -Circular Undermining No -Exudate Amt Medium Small Small -Exudate Type Serosanguineous Serosanguineous Serosanguineous -Wound Margin Distinct, Thickened & Thickened & Outline Rolled Under Rolled Under Attached -Granulation Amt Medium (34-66%) Large (67-100%) Large (67-100%) -Granulation Quality [place] -Slough/Fibrin Yes -Necrosis Amt Medium (34-66%) None Present (0 None Present (0 %) %) -Necrotic Tissue Type Adherent Slough -Structure Exposed N/A N/A -Texture (Blanche-wound Skin Appearance) Assessed, Scarring Scarring Scarring -Moisture (Blanche-wound Skin Appearance) Assessed,Dry/ No Abnormality Dry/Scaly Scaly -Color (Blanche-wound Skin Appearance) Assessed No Abnormality No Abnormality -Temperature (Blanche-wound Skin No Abnormality No Abnormality No Abnormality Appearance) (Pt Warm) (Pt Warm) (Pt Warm) -Tenderness on Palpation (Blanche-wound No No No Skin Appearance) -Ulcer Cleansing Rinsed/ Rinsed/ Soap and Water Irrigated with Irrigated with Saline Saline -Foul Odor after Cleansing No No No -Anesthetic Used 5% Lidocaine 4% Lidocaine 4% Lidocaine Gel Solution Solution WC - Nurse 2 - General Ulcer CM Notes Start: 03/14/23 09:28 Freq: Status: Active Protocol: Activity Type Activity Date Activity User E-sign Co-sign Detail Recorded Client Recorded Date Recorded By Document 03/14/23 14:09 [id number] 03/14/23 14:10 Document 03/28/23 13:17 [id number] 03/28/23 13:17 03/14/23 03/28/23 14:09 13:17 Wound Center Nurse 2 #11 R Groin -Time 09:37 10:11 -Correct Patient Yes Yes -Correct Side, Site, Position Yes Yes -Correct Procedure Yes Yes -Procedure Performed Yes Yes -Type of Procedure Debridement Debridement -Clinical Debridement Subcutaneous Subcutaneous -Tissue Removed Subcutaneous Subcutaneous -Post Debridement (cm) - Length 1.8 1.7 -Post Debridement (cm) - Width 0.7 0.7 -Post Debridement (cm) - Depth 0.6 0.4 -Total Square (Post) (cm) 1.26 1.19 -Area of Debridement (cm) - Length 1.8 1.7 -Area of Debridement (cm) - Width 0.7 0.7 -Total Square (Area) (cm) 1.26 1.19 -Tunneling No No -Undermining/Tunneling No No -Circular Undermining No No -Wound/Ulcer Outcome Not Healed Not Healed -Ulcer Cleansing Rinsed/ Rinsed/ Irrigated with Irrigated with Saline Saline -Foul Odor after Cleansing No No -Bioengineered Tissue No No -Bleeding Controlled with Pressure Pressure -Treatment Response Procedure Procedure Tolerated Well Tolerated Well -Debridement - Subq, 1st 20sq cm Yes Yes Pain Scale: 0-10 Numeric Is Patient Pain Free? Yes Yes - Nurse 3 - General Ulcer D/C NN Start: 03/14/23 09:28 Freq: Status: Active Protocol: Activity Type Activity Date Activity User E-sign Co-sign Detail Recorded Client Recorded Date Recorded By Document 03/14/23 09:45 [facility] [id number] 03/14/23 09:45 [facility] 03/14/23 09:45 Wound Care Center Nurse 3 #11 R Groin -Ulcer Cleansing Rinsed/ Irrigated with Saline -Foul Odor after Cleansing No -Other Dressing MEDIHONEY -Primary Dressing Covered/Secured with Dry Gauze, Secured with Tape -Other Covering PT APPLIES OWN DRSG Treatment Response Procedure Tolerated Well Pain Scale: 0-10 Numeric Is Patient Pain Free? 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 (2) Soft tissue radionecrosis: CODE(S): L59.8 - Other specified disorders of the skin and subcutaneous tissue related to radiation; Y84.2 - Radiological procedure and radiotherapy as the cause of abnormal reaction of the patient, or of later complication, without mention of misadventure at the time of the procedure (3) soft tissue radiation injury: (4) Radiation injury: CODE(S): T66.XXXA - Radiation sickness, unspecified, initial encounter QUALIFIERS: Encounter type: subsequent encounter Qualified Code(s): T66.XXXD - Radiation sickness, unspecified, subsequent encounter (5) History of melanoma: CODE(S): Z85.820 - Personal history of malignant melanoma of skin PLAN: Plan This is a 68-year-old female with a severe soft tissue radiation injury that occurred as result of radiation treatments for malignant melanoma many years ago. A total of 5 EpiFix allografts have been placed in the recent past. Little improvement was noted. More recently, we implemented a Snap VAC. Because of the location in the right groin, an intertriginous zone, subject to perspiration and repetitive motion, the seal of the snap VAC could not be maintained for more than 48 to 72 hours. In some cases, the seal was maintained for only 24 hours. Therefore, it was necessary to transition to alternative treatment modalities. We are to continue the use of Medihoney Gel, which will be applied topically on a daily basis, and the wound packed with gauze. Slight improvement has been noted recently since the implementation of Medihoney Gel. The patient has been instructed in the appropriate means of application. The lack of progressive healing is thought to be due to the compromised arterial supply as a result of severe soft tissue radionecrosis. Recent culture results have been noted, and appear to be normal skin mare, rather than pathological organisms. The patient is to return in 2 weeks for reassessment. We have considered alternative treatment modalities. Other options under consideration have included referral to a tertiary care center for myocutaneous flap reconstruction of the involved area. However, the described potential complications and needed rehabilitation have given the patient reservations about proceeding with such aggressive management in the past. Total time: 22 minutes
== END 2023-04-08 23:59 | disposition home or self-care (01) ==
LOC: WC 09:15
PROVIDERS: PCP Family Medicine; Visit Provider Surgery
DX: L59.8 Other specified disorders of the skin and subcutaneous tissue related to radiation (principal); Z89.611 Acquired absence of right leg above knee; L97.112 Non-pressure chronic ulcer of right thigh with fat layer exposed; Z87.891 Personal history of nicotine dependence; T66.XXXD Radiation sickness, unspecified, subsequent encounter; Y84.2 Radiological procedure and radiotherapy as the cause of abnormal reaction of the patient, or of later complication, without mention of misadventure at the time of the procedure; Z85.820 Personal history of malignant melanoma of skin; Z92.3 Personal history of irradiation
CPT/HCPCS: 11042

== ENCOUNTER 2023-04-18 10:18 | Outpatient (RCR) | payer MEDICARE, OTHER, SELFPAY ==
[2023-04-09 00:14] VITALS: BP 145/80; PULSE 85; RESP 20; TEMP 35.7; BMI 29.8
[2023-04-18 10:19] VITALS: BP 146/77; PULSE 73; RESP 18; TEMP 35.8; BMI 29.8
--- NOTE | 2023-04-18 10:37 | PCM.WC.HP ---
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 The patient was diagnosed with melanoma of the right calf in the 1969's. The melanoma was metastatic to lymph nodes. The patient underwent excision of her melanoma with lymphadenectomy in the right groin. She also underwent lengthy radiation treatments at the [facility] in [place], [place]. Melanoma recurred, and the patient was subsequently treated with monoclonal antibodies in 1984. However, due to the presence of severe radiation injury, persisting open wounds in the right thigh, MRSA infection, and severe radiation injury to the right femoral artery, the patient subsequently required right above-knee amputation in 2002. 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 Treatment included local ulcer care and hyperbaric oxygen therapy. She underwent a total of nearly 90 treatments of hyperbaric oxygen therapy. It is known that she tolerated the therapies well, and derived significant benefit. 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 She has also undergone several more sessions of hyperbaric oxygen therapy. She also received a series of 10 EpiFix allografts in the course of previous treatment. Each of the patient's prior courses of treatment in our facility have been protracted, with difficulties encountered in achieving complete healing. Her most recent course of treatment ended with successful healing and discharge in February 2021. The patient presented at this time with a recurrence of her right groin ulceration, again thought to be secondary to soft tissue radiation injury. The ulceration recurred spontaneously approximately 2-3 weeks prior to her presentation. The patient indicates that her health history has not changed since she was last treated in our facility. 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 Home Medications famotidine 20 mg tablet 20 mg PO 06/20/17 [History Last Taken Unknown] pravastatin 20 mg tablet 20 mg PO DAILY 06/20/17 [History Last Taken Unknown] famotidine 40 mg tablet PO 90 days ##90 12/26/17 [History Last Taken Unknown] pravastatin 20 mg tablet PO 90 days ##90 12/26/17 [History Last Taken Unknown] cyclobenzaprine 10 mg tablet 10 mg PO TID 02/07/23 [History Last Taken 02/07/23] Allergy/AdvReac Type Severity Reaction Status Date / Time No Known Allergies Allergy Verified 02/15/22 09:08 Family History Other Heart disease Hypertension Surgical History Hx of AKA (above knee amputation) Social History Smoking Status: Former smoker alcohol intake: current alcohol intake frequency: holidays/special occasions only Vital Signs Vital Signs Vital Signs: 04/18/23 10:19 Temperature 96.5 F L Temperature Source Temporal Pulse Rate 73 Respiratory Rate 18 Blood Pressure 146/77 H Blood Pressure Mean 100 Blood Pressure Source Monitor Blood Pressure Position Semi-Fowlers Blood Pressure Location Left Arm Weight Weight: 196 lb 1.696 oz Body Mass Index (BMI) 29.8 Physical Exam Const alert, oriented x3, no apparent distress and well nourished General Appearance: cooperative, comfortable, well kempt and well developed Orientation / Consciousness: awake, oriented to person, oriented to place and oriented to time HEENT normocephalic, head/scalp atraumatic and hearing grossly normal bilaterally HEENT Narrative: Able to visualize her ear tubes bilaterally. Right tube appears to be shifting out of TM. Head and Scalp: normal to inspection, normocephalic and atraumatic Face and Sinus: normal facial exam External Ear: external ears normal Eyes EOMs intact bilaterally General Eye: normal appearance of both eyes Resp normal respiratory effort, normal air movement, no retractions and no use of accessory muscles Effort and Inspection: able to speak in complete sentences and symmetric chest movement Cardio regular rate and regular rhythm Skin Wound Narrative: A well-healed right above-knee amputation stump is noted. An ulceration persists in the patient's right groin. There is a small amount of bioburden and nonviable tissue present. Dimensions are documented elsewhere. The ulceration has not changed in size significantly. The base of the ulceration is generally pink and healthy in appearance. There is no sign of infection or cellulitis. Neuro oriented x3, CN's II-XII intact bilaterally, moves all extremities and no focal motor deficits Sensorium / Orientation: awake, alert, oriented to person, oriented to place and oriented to time Psych affect normal Appearance: grossly normal, appropriate and well kempt Attitude: calm and engaged Activity / Motor Behavior: appropriate eye contact Speech: normal speech Thought Process: normal thought process Attention / Concentration: attention grossly intact Insight: insight good Debridement Note Debridement Note Wound debrided: Right groin ulceration, soft tissue radionecrosis Laterality: Right Type of Debridement: Excisional debridement Anesthesia Used: 5% Lidocaine Gel Depth: Down to and including healthy tissue and in the subcutaneous layer Percentage of wound debrided: 100 Instrument Used: 3mm curette Tissue Removed: Bioburden and nonviable tissue Severity: Fat Layer Exposed Amount of bleeding with debridement: Mild Bleeding Controlled with: Compression and gauze Patient tolerated procedure: Patient tolerated procedure well Post-Debridement Measurements and Additional Note: Post-Debridement Measurements/Treatment - Nurse 1 - General Ulcer Assessment Start: 04/18/23 10:19 Freq: Status: Active Protocol: MICHAEL Activity Type Activity Date Activity User E-sign Co-sign Detail Recorded Client Recorded Date Recorded By Document 04/18/23 10:19 Desktop 04/18/23 10:21 04/18/23 10:19 - Today's Visit Information Type of service Follow-up 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/MEDICAL MANAGEMENT SPECIALIST ) Arrival Mode Ambulatory Transfer Assistance None Patient Identification Verified (Name & Yes ) Patient Requires Transmission-Based No Precautions Height and Weight Body Mass Index (BMI) 29.8 BMI Classification Overweight Vital Signs Temperature (97.8 F-99.1 F) 96.5 F L Temperature Source Temporal Pulse Rate (60-100) 73 Pulse Location Monitor Respiratory Rate (12-18) 18 Respiratory rate source Observation Blood Pressure (90/60-120/80) 146/77 H Blood Pressure Mean 100 Source Monitor Position Semi-Fowlers Blood Pressure Location Left Arm History Since Last Visit- (Skip if this is Patient's initial visit) Have you changed medications since your No last visit? Any new allergies or adverse reactions No Had a fall/change in ADL's that may No increase risk of falls Signs or symptoms of abuse and/or No neglect since last visit Have you been in the hospital since your No last visit? Has dressing in place as prescribed Yes Has compression in place as prescribed No Has offloadiing in place as prescribed No Experienced any changes in pain level or No management Pain Scale: 0-10 Numeric Is Patient Pain Free? Yes WC - Nurse 1 - General Ulcer Measurement Start: 04/18/23 10:19 Freq: Status: Active Protocol: Activity Type Activity Date Activity User E-sign Co-sign Detail Recorded Client Recorded Date Recorded By Document 04/18/23 10:19 RB Desktop 04/18/23 10:21 RB 04/18/23 10:19 Wound Center Nurse 1 #11 R Groin -Combined with other wound No -Current Size (cm) - Length 1.8 -Current Size (cm) - Width 0.8 -Current Size (cm) - Depth 0.3 -Total Square Cm 1.44 -Tunneling No -Undermining/Tunneling No -Circular Undermining No -Exudate Amt Large -Exudate Type Serosanguineous -Wound Margin Thickened & Rolled Under -Granulation Amt Medium (34-66%) -Granulation Quality Malcolm -Slough/Fibrin Yes -Necrosis Amt Medium (34-66%) -Structure Exposed N/A -Texture (Blanche-wound Skin Appearance) Assessed -Moisture (Blanche-wound Skin Appearance) Assessed -Color (Blanche-wound Skin Appearance) Assessed -Temperature (Blanche-wound Skin No Abnormality Appearance) (Pt Warm) -Tenderness on Palpation (Blanche-wound No Skin Appearance) -Ulcer Cleansing Wound Cleanser -Foul Odor after Cleansing No -Anesthetic Used 4% Lidocaine Solution 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 (2) Soft tissue radionecrosis: CODE(S): L59.8 - Other specified disorders of the skin and subcutaneous tissue related to radiation; Y84.2 - Radiological procedure and radiotherapy as the cause of abnormal reaction of the patient, or of later complication, without mention of misadventure at the time of the procedure (3) soft tissue radiation injury: (4) Radiation injury: CODE(S): T66.XXXA - Radiation sickness, unspecified, initial encounter QUALIFIERS: Encounter type: subsequent encounter Qualified Code(s): T66.XXXD - Radiation sickness, unspecified, subsequent encounter (5) History of melanoma: CODE(S): Z85.820 - Personal history of malignant melanoma of skin PLAN: Plan This is a 68-year-old female with a severe soft tissue radiation injury that occurred as result of radiation treatments for malignant melanoma many years ago. A total of 5 EpiFix allografts have been placed in the recent past. Little improvement was noted. More recently, we implemented a Snap VAC. Because of the location in the right groin, an intertriginous zone, subject to perspiration and repetitive motion, the seal of the snap VAC could not be maintained for more than 48 to 72 hours. In some cases, the seal was maintained for only 24 hours. Therefore, it was necessary to transition to alternative treatment modalities. We are to continue the use of Medihoney Gel, which will be applied topically on a daily basis, and the wound packed with gauze. Slight improvement has been noted recently since the implementation of Medihoney Gel. The patient has been instructed in the appropriate means of application. The lack of progressive healing is thought to be due to the compromised arterial supply as a result of severe soft tissue radionecrosis. Recent culture results have been noted, and appear to be normal skin mare, rather than pathological organisms. The patient is to return in 2 weeks for reassessment. The patient's right groin wound, secondary to soft tissue radionecrosis, has not shown significant improvement in recent months, despite several different modalities of treatment. Consideration is to be given to the use of hyperbaric oxygen therapy, which is indicated in treatment for soft tissue radionecrosis. HBO therapy has been used in the past, with satisfactory results. We have considered other alternative treatment modalities. Other options under consideration have included referral to a tertiary care center for myocutaneous flap reconstruction of the involved area. However, the described potential complications and needed rehabilitation have given the patient reservations about proceeding with such aggressive management in the past. Total time: 24 minutes
== END 2023-05-09 23:59 | disposition home or self-care (01) ==
LOC: WC 10:18
PROVIDERS: PCP Family Medicine; Visit Provider Surgery
DX: L59.8 Other specified disorders of the skin and subcutaneous tissue related to radiation (principal); Z89.611 Acquired absence of right leg above knee; L97.112 Non-pressure chronic ulcer of right thigh with fat layer exposed; Z87.891 Personal history of nicotine dependence; Z92.3 Personal history of irradiation; T66.XXXD Radiation sickness, unspecified, subsequent encounter; Y84.2 Radiological procedure and radiotherapy as the cause of abnormal reaction of the patient, or of later complication, without mention of misadventure at the time of the procedure
CPT/HCPCS: 11042

== ENCOUNTER 2023-05-23 09:30 | Outpatient (RCR) | payer MEDICARE, OTHER, SELFPAY ==
[2023-05-10 00:36] VITALS: BP 146/77; PULSE 73; RESP 18; TEMP 35.8; BMI 29.8
[2023-05-16 09:30] VITALS: BP 180/87; PULSE 88; RESP 18; TEMP 35.7; BMI 29.8
--- NOTE | 2023-05-16 14:07 | HP.PCM_ITS ---
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 The patient was diagnosed with melanoma of the right calf in the 1969's. 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 The patient underwent excision of her melanoma with lymphadenectomy in the right groin. She also underwent lengthy radiation treatments at the [facility] in [place], [place]. Melanoma recurred, and the patient was subsequently treated with monoclonal antibodies in 1984. However, due to the presence of severe radiation injury, persisting open wounds in the right thigh, MRSA infection, and severe radiation injury to the right femoral artery, the patient subsequently required right above-knee amputation in 2002. 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 Treatment included local ulcer care and hyperbaric oxygen therapy. She underwent a total of nearly 90 treatments of hyperbaric oxygen therapy. It is known that she tolerated the therapies well, and derived significant benefit. 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 She has also undergone several more sessions of hyperbaric oxygen therapy. She also received a series of 10 EpiFix allografts in the course of previous treatment. Each of the patient's prior courses of treatment in our facility have been protracted, with difficulties encountered in achieving complete healing. Her most recent course of treatment ended with successful healing and discharge in February 2021. The patient presented at this time with a recurrence of her right groin ulceration, again thought to be secondary to soft tissue radiation injury. The ulceration recurred spontaneously approximately 2-3 weeks prior to her presentation. The patient indicates that her health history has not changed since she was last treated in our facility. 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 Home Medications famotidine 20 mg tablet 20 mg PO 06/20/17 [History Last Taken Unknown] pravastatin 20 mg tablet 20 mg PO DAILY 06/20/17 [History Last Taken Unknown] famotidine 40 mg tablet PO 90 days ##90 12/26/17 [History Last Taken Unknown] pravastatin 20 mg tablet PO 90 days ##90 12/26/17 [History Last Taken Unknown] cyclobenzaprine 10 mg tablet 10 mg PO TID 02/07/23 [History Last Taken 02/07/23] Allergy/AdvReac Type Severity Reaction Status Date / Time No Known Allergies Allergy Verified 02/15/22 09:08 Family History Other Heart disease Hypertension Surgical History Hx of AKA (above knee amputation) Social History Smoking Status: Former smoker alcohol intake: current alcohol intake frequency: holidays/special occasions only Vital Signs Vital Signs Vital Signs: 05/16/23 09:30 Temperature 96.3 F L Temperature Source Temporal Pulse Rate 88 Respiratory Rate 18 Blood Pressure 180/87 H Blood Pressure Mean 118 Blood Pressure Source Monitor Blood Pressure Position Semi-Fowlers Blood Pressure Location Left Arm Weight Weight: 196 lb 1.696 oz Body Mass Index (BMI) 29.8 Physical Exam Const alert, oriented x3, no apparent distress and well nourished General Appearance: cooperative, comfortable, well kempt and well developed Orientation / Consciousness: awake, oriented to person, oriented to place and oriented to time HEENT normocephalic, head/scalp atraumatic and hearing grossly normal bilaterally HEENT Narrative: Able to visualize her ear tubes bilaterally. Right tube appears to be shifting out of TM. Head and Scalp: normal to inspection, normocephalic and atraumatic Face and Sinus: normal facial exam External Ear: external ears normal Eyes EOMs intact bilaterally General Eye: normal appearance of both eyes Resp normal respiratory effort, normal air movement, no retractions and no use of accessory muscles Effort and Inspection: able to speak in complete sentences and symmetric chest movement Cardio regular rate and regular rhythm Skin Wound Narrative: A well-healed right above-knee amputation stump is noted. An ulceration persists in the patient's right groin. There is a small amount of bioburden and nonviable tissue present. Dimensions are documented elsewhere. The ulceration appears to have diminished in size since the patient's prior visit. The base of the ulceration is generally pink and healthy in appearance. There is no sign of infection or cellulitis. Neuro oriented x3, CN's II-XII intact bilaterally, moves all extremities and no focal motor deficits Sensorium / Orientation: awake, alert, oriented to person, oriented to place and oriented to time Psych affect normal Appearance: grossly normal, appropriate and well kempt Attitude: calm and engaged Activity / Motor Behavior: appropriate eye contact Speech: normal speech Thought Process: normal thought process Attention / Concentration: attention grossly intact Insight: insight good Debridement Note Debridement Note Wound debrided: Right groin ulceration, soft tissue radionecrosis Laterality: Right Type of Debridement: Excisional debridement Anesthesia Used: 5% Lidocaine Gel Depth: Down to and including healthy tissue and in the subcutaneous layer Percentage of wound debrided: 100 Instrument Used: 3mm curette Tissue Removed: Bioburden and nonviable tissue Severity: Fat Layer Exposed Amount of bleeding with debridement: Mild Bleeding Controlled with: Compression and gauze Patient tolerated procedure: Patient tolerated procedure well Post-Debridement Measurements and Additional Note: Post-Debridement Measurements/Treatment - Nurse 1 - General Ulcer Assessment Start: 05/16/23 09:30 Freq: Status: Active Protocol: [email or web address] Activity Type Activity Date Activity User E-sign Co-sign Detail Recorded Client Recorded Date Recorded By Document 05/16/23 09:30 Desktop 05/16/23 09:38 RB 05/16/23 09:30 - Today's Visit Information Type of service Follow-up 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/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 ) Arrival Mode Ambulatory Transfer Assistance None Patient Identification Verified (Name & Yes ) Patient Requires Transmission-Based No Precautions Height and Weight Body Mass Index (BMI) 29.8 BMI Classification Overweight Vital Signs Temperature (97.8 F-99.1 F) 96.3 F L Temperature Source Temporal Pulse Rate (60-100) 88 Pulse Location Monitor Respiratory Rate (12-18) 18 Respiratory rate source Observation Blood Pressure (90/60-120/80) 180/87 H Blood Pressure Mean 118 Source Monitor Position Semi-Fowlers Blood Pressure Location Left Arm History Since Last Visit- (Skip if this is Patient's initial visit) Have you changed medications since your No last visit? Any new allergies or adverse reactions No Had a fall/change in ADL's that may No increase risk of falls Signs or symptoms of abuse and/or No neglect since last visit Have you been in the hospital since your No last visit? Has dressing in place as prescribed Yes Has compression in place as prescribed No Has offloadiing in place as prescribed No Experienced any changes in pain level or No management Pain Scale: 0-10 Numeric Is Patient Pain Free? Yes - Nurse 1 - General Ulcer Measurement Start: 05/16/23 09:30 Freq: Status: Active Protocol: Activity Type Activity Date Activity User E-sign Co-sign Detail Recorded Client Recorded Date Recorded By Document 05/16/23 09:30 RB Desktop 05/16/23 09:38 RB 05/16/23 09:30 Wound Center Nurse 1 #11 R Groin -Combined with other wound No -Current Size (cm) - Length 1.7 -Current Size (cm) - Width 1 -Current Size (cm) - Depth 0.3 -Total Square Cm 1.7 -Tunneling No -Undermining/Tunneling No -Circular Undermining No -Exudate Amt Medium -Exudate Type Serosanguineous -Wound Margin Thickened & Rolled Under -Granulation Amt Medium (34-66%) -Granulation Quality [place] -Slough/Fibrin Yes -Necrosis Amt Medium (34-66%) -Necrotic Tissue Type Adherent Slough -Structure Exposed N/A -Texture (Blanche-wound Skin Appearance) Excoriation, Scarring -Moisture (Blanche-wound Skin Appearance) Assessed -Color (Blanche-wound Skin Appearance) Assessed -Temperature (Blanche-wound Skin No Abnormality Appearance) (Pt Warm) -Tenderness on Palpation (Blanche-wound No Skin Appearance) -Ulcer Cleansing Wound Cleanser -Foul Odor after Cleansing No -Anesthetic Used 4% Lidocaine Solution - Nurse 2 - General Ulcer CM Notes Start: 05/16/23 09:30 Freq: Status: Active Protocol: Activity Type Activity Date Activity User E-sign Co-sign Detail Recorded Client Recorded Date Recorded By Document 05/16/23 13:39 PL [id number] 05/16/23 13:40 PL 05/16/23 13:39 Wound Center Nurse 2 -Time 09:50 -Correct Patient Yes -Correct Side, Site, Position Yes -Correct Procedure Yes -Procedure Performed Yes -Type of Procedure Debridement -Clinical Debridement Subcutaneous -Tissue Removed Subcutaneous -Post Debridement (cm) - Length 1.7 -Post Debridement (cm) - Width 1.0 -Post Debridement (cm) - Depth 0.3 -Total Square (Post) (cm) 1.70 -Area of Debridement (cm) - Length 1.7 -Area of Debridement (cm) - Width 1.0 -Total Square (Area) (cm) 1.70 -Tunneling No -Undermining/Tunneling No -Circular Undermining No -Wound/Ulcer Outcome Not Healed -Ulcer Cleansing Rinsed/ Irrigated with Saline -Foul Odor after Cleansing No -Bioengineered Tissue No -Bleeding Controlled with Pressure -Treatment Response Procedure Tolerated Well -Debridement - Subq, 1st 20sq cm Yes Pain Scale: 0-10 Numeric Is Patient Pain Free? Yes - Nurse 3 - General Ulcer D/C NN Start: 05/16/23 09:30 Freq: Status: Active Protocol: Activity Type Activity Date Activity User E-sign Co-sign Detail Recorded Client Recorded Date Recorded By Document 05/16/23 09:59 RB Desktop 05/16/23 09:59 RB 05/16/23 09:59 Wound Care Center Nurse 3 #11 R Groin -Ulcer Cleansing Rinsed/ Irrigated with Saline -Other Dressing medihoney -Primary Dressing Covered/Secured with Dry Gauze, Secured with Tape Treatment Response Procedure Tolerated Well Pain Scale: 0-10 Numeric Is Patient Pain Free? 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 (2) Soft tissue radionecrosis: CODE(S): L59.8 - Other specified disorders of the skin and subcutaneous tissue related to radiation; Y84.2 - Radiological procedure and radiotherapy as the cause of abnormal reaction of the patient, or of later complication, without mention of misadventure at the time of the procedure (3) soft tissue radiation injury: (4) Radiation injury: CODE(S): T66.XXXA - Radiation sickness, unspecified, initial encounter QUALIFIERS: Encounter type: subsequent encounter Qualified Code(s): T66.XXXD - Radiation sickness, unspecified, subsequent encounter (5) History of melanoma: CODE(S): Z85.820 - Personal history of malignant melanoma of skin PLAN: Plan This is a 68-year-old female with a severe soft tissue radiation injury that occurred as result of radiation treatments for malignant melanoma many years ago. A total of 5 EpiFix allografts have been placed in the recent past. Little improvement was noted. More recently, we implemented a Snap VAC. Becaus e of the location in the right groin, an intertriginous zone, subject to perspiration and repetitive motion, the seal of the snap VAC could not be maintained for more than 48 to 72 hours. In some cases, the seal was maintained for only 24 hours. Therefore, it was necessary to transition to alternative treatment modalities. We are to continue the use of Medihoney Gel, which will be applied topically on a daily basis, and the wound packed with gauze. Slight improvement has been noted recently since the implementation of Medihoney Gel. The patient has been instructed in the appropriate means of application. The lack of progressive healing is thought to be due to the compromised arterial supply as a result of severe soft tissue radionecrosis. Recent culture results have been noted, and appear to be normal skin mare, rather than pathological organisms. The patient is to return in 2 weeks for reassessment. The patient's right groin wound, secondary to soft tissue radionecrosis, has not shown significant improvement in recent months, despite several different modalities of treatment. Consideration is to be given to the use of hyperbaric oxygen therapy, which is indicated in treatment for soft tissue radionecrosis. HBO therapy has been used in the past, with satisfactory results. We have considered other alternative treatment modalities. Other options under consideration have included referral to a tertiary care center for myocutaneous flap reconstruction of the involved area. However, the described potential complications and needed rehabilitation have given the patient reservations about proceeding with such aggressive management in the past. Total time: 25 minutes
[2023-05-23 09:43] VITALS: BP 158/78; PULSE 82; RESP 18; TEMP 36.1; BMI 29.8
--- NOTE | 2023-05-23 10:13 | HP.PCM_ITS ---
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 The patient was diagnosed with melanoma of the right calf in the 1969's. The melanoma was metastatic to lymph nodes. The patient underwent excision of her melanoma with lymphadenectomy in the right groin. She also underwent lengthy radiation treatments at the [facility] in [place], [place]. Melanoma recurred, and the patient was subsequently treated with monoclonal antibodies in 1984. However, due to the presence of severe radiation injury, persisting open wounds in the right thigh, MRSA infection, and severe radiation injury to the right femoral artery, the patient subsequently required right above-knee amputation in 2002. 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 Treatment included local ulcer care and hyperbaric oxygen therapy. She underwent a total of nearly 90 treatments of hyperbaric oxygen therapy. It is known that she tolerated the therapies well, and derived significant benefit. 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 She has also undergone several more sessions of hyperbaric oxygen therapy. She also received a series of 10 EpiFix allografts in the course of previous treatment. Each of the patient's prior courses of treatment in our facility have been protracted, with difficulties encountered in achieving complete healing. Her most recent course of treatment ended with successful healing and discharge in February 2021. The patient presented at this time with a recurrence of her right groin ulceration, again thought to be secondary to soft tissue radiation injury. The ulceration recurred spontaneously approximately 2-3 weeks prior to her presentation. The patient indicates that her health history has not changed since she was last treated in our facility. 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 Home Medications famotidine 20 mg tablet 20 mg PO 06/20/17 [History Last Taken Unknown] pravastatin 20 mg tablet 20 mg PO DAILY 06/20/17 [History Last Taken Unknown] famotidine 40 mg tablet PO 90 days ##90 12/26/17 [History Last Taken Unknown] pravastatin 20 mg tablet PO 90 days ##90 12/26/17 [History Last Taken Unknown] cyclobenzaprine 10 mg tablet 10 mg PO TID 02/07/23 [History Last Taken 02/07/23] Allergy/AdvReac Type Severity Reaction Status Date / Time No Known Allergies Allergy Verified 02/15/22 09:08 Family History Other Heart disease Hypertension Surgical History Hx of AKA (above knee amputation) Social History Smoking Status: Former smoker alcohol intake: current alcohol intake frequency: holidays/special occasions only Vital Signs Vital Signs Vital Signs: 05/23/23 09:43 Temperature 97.0 F L Temperature Source Temporal Pulse Rate 82 Respiratory Rate 18 Blood Pressure 158/78 H Blood Pressure Mean 104 Blood Pressure Source Monitor Blood Pressure Position Semi-Fowlers Blood Pressure Location Right Arm Weight Weight: 196 lb 1.696 oz Body Mass Index (BMI) 29.8 Physical Exam Const alert, oriented x3, no apparent distress and well nourished General Appearance: cooperative, comfortable, well kempt and well developed Orientation / Consciousness: awake, oriented to person, oriented to place and oriented to time HEENT normocephalic, head/scalp atraumatic and hearing grossly normal bilaterally HEENT Narrative: Able to visualize her ear tubes bilaterally. Right tube appears to be shifting out of TM. Head and Scalp: normal to inspection, normocephalic and atraumatic Face and Sinus: normal facial exam External Ear: external ears normal Eyes EOMs intact bilaterally General Eye: normal appearance of both eyes Resp normal respiratory effort, normal air movement, no retractions and no use of accessory muscles Effort and Inspection: able to speak in complete sentences and symmetric chest movement Cardio regular rate and regular rhythm Skin Wound Narrative: A well-healed right above-knee amputation stump is noted. An ulceration persists in the patient's right groin. There is a small amount of bioburden and nonviable tissue present. Dimensions are documented elsewhere. The ulceration appears to have diminished in size since the patient's prior visit. The base of the ulceration is generally pink and healthy in appearance. There is no sign of infection or cellulitis. Neuro oriented x3, CN's II-XII intact bilaterally, moves all extremities and no focal motor deficits Sensorium / Orientation: awake, alert, oriented to person, oriented to place and oriented to time Psych affect normal Appearance: grossly normal, appropriate and well kempt Attitude: calm and engaged Activity / Motor Behavior: appropriate eye contact Speech: normal speech Thought Process: normal thought process Attention / Concentration: attention grossly intact Insight: insight good Debridement Note Debridement Note Wound debrided: Right groin ulceration, soft tissue radionecrosis Laterality: Right Type of Debridement: Excisional debridement Anesthesia Used: 5% Lidocaine Gel Depth: Down to and including healthy tissue and in the subcutaneous layer Percentage of wound debrided: 100 Instrument Used: 3mm curette Tissue Removed: Bioburden and nonviable tissue Severity: Fat Layer Exposed Amount of bleeding with debridement: Mild Bleeding Controlled with: Compression and gauze Patient tolerated procedure: Patient tolerated procedure well Post-Debridement Measurements and Additional Note: Post-Debridement Measurements/Treatment - Nurse 1 - General Ulcer Assessment Start: 05/16/23 09:30 Freq: Status: Active Protocol: [email or web address] Activity Type Activity Date Activity User E-sign Co-sign Detail Recorded Client Recorded Date Recorded By Document 05/16/23 09:30 Desktop 05/16/23 09:38 Document 05/23/23 09:43 Laptop 05/23/23 09:44 05/16/23 05/23/23 09:30 09:43 - Today's Visit Information Type of service Follow-up Visit Follow-up 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/BEAN SORTER (Physician/BEAN SORTER ) ) Arrival Mode Ambulatory Ambulatory Transfer Assistance None Patient Identification Verified (Name & Yes Yes ) Patient Requires Transmission-Based No No Precautions Height and Weight Body Mass Index (BMI) 29.8 29.8 BMI Classification Overweight Overweight Vital Signs Temperature (97.8 F-99.1 F) 96.3 F L 97.0 F L Temperature Source Temporal Temporal Pulse Rate (60-100) 88 82 Pulse Location Monitor Monitor Respiratory Rate (12-18) 18 18 Respiratory rate source Observation Observation Blood Pressure (90/60-120/80) 180/87 H 158/78 H Blood Pressure Mean 118 104 Source Monitor Monitor Position Semi-Fowlers Semi-Fowlers Blood Pressure Location Left Arm Right Arm History Since Last Visit- (Skip if this is Patient's initial visit) Have you changed medications since your No No last visit? Any new allergies or adverse reactions No No Had a fall/change in ADL's that may No No increase risk of falls Signs or symptoms of abuse and/or No No neglect since last visit Have you been in the hospital since your No No last visit? Has dressing in place as prescribed Yes Yes Has compression in place as prescribed No N/A Has offloadiing in place as prescribed No N/A Experienced any changes in pain level or No No management Left Footwear Regular Shoe Right Footwear Regular Shoe Pain Scale: 0-10 Numeric Is Patient Pain Free? Yes Yes WC - Nurse 1 - General Ulcer Measurement Start: 05/16/23 09:30 Freq: Status: Active Protocol: Activity Type Activity Date Activity User E-sign Co-sign Detail Recorded Client Recorded Date Recorded By Document 05/16/23 09:30 RB Desktop 05/16/23 09:38 RB Document 05/23/23 09:43 Laptop 05/23/23 09:44 05/16/23 05/23/23 09:30 09:43 Wound Center Nurse 1 #11 R Groin -Combined with other wound No No -Current Size (cm) - Length 1.7 1.3 -Current Size (cm) - Width 1 1.0 -Current Size (cm) - Depth 0.3 0.5 -Total Square Cm 1.7 1.30 -Photo Taken Yes -Epithelialization None Present -Tunneling No No -Undermining/Tunneling No No -Circular Undermining No No -Exudate Amt Medium Small -Exudate Type Serosanguineous Serosanguineous -Wound Margin Thickened & Flat & Intact Rolled Under -Granulation Amt Medium (34-66%) Large (67-100%) -Granulation Quality [place] Red -Slough/Fibrin Yes Yes -Necrosis Amt Medium (34-66%) Small (1-33%) -Necrotic Tissue Type Adherent Slough Adherent Slough -Structure Exposed N/A N/A -Texture (Blanche-wound Skin Appearance) Excoriation, Assessed, Scarring Localized Edema -Moisture (Blanche-wound Skin Appearance) Assessed Assessed,Dry/ Scaly -Color (Blanche-wound Skin Appearance) Assessed Assessed -Temperature (Blanche-wound Skin No Abnormality No Abnormality Appearance) (Pt Warm) (Pt Warm) -Tenderness on Palpation (Blanche-wound No No Skin Appearance) -Ulcer Cleansing Wound Cleanser Rinsed/ Irrigated with Saline -Foul Odor after Cleansing No No -Anesthetic Used 4% Lidocaine 4% Lidocaine Solution Solution Lower Limb Edema Present NA - Nurse 2 - General Ulcer CM Notes Start: 05/16/23 09:30 Freq: Status: Active Protocol: Activity Type Activity Date Activity User E-sign Co-sign Detail Recorded Client Recorded Date Recorded By Document 05/16/23 13:39 PL [id number] 05/16/23 13:40 PL 05/16/23 13:39 Wound Center Nurse 2 #11 R Groin -Time 09:50 -Correct Patient Yes -Correct Side, Site, Position Yes -Correct Procedure Yes -Procedure Performed Yes -Type of Procedure Debridement -Clinical Debridement Subcutaneous -Tissue Removed Subcutaneous -Post Debridement (cm) - Length 1.7 -Post Debridement (cm) - Width 1.0 -Post Debridement (cm) - Depth 0.3 -Total Square (Post) (cm) 1.70 -Area of Debridement (cm) - Length 1.7 -Area of Debridement (cm) - Width 1.0 -Total Square (Area) (cm) 1.70 -Tunneling No -Undermining/Tunneling No -Circular Undermining No -Wound/Ulcer Outcome Not Healed -Ulcer Cleansing Rinsed/ Irrigated with Saline -Foul Odor after Cleansing No -Bioengineered Tissue No -Bleeding Controlled with Pressure -Treatment Response Procedure Tolerated Well -Debridement - Subq, 1st 20sq cm Yes Pain Scale: 0-10 Numeric Is Patient Pain Free? Yes - Nurse 3 - General Ulcer D/C NN Start: 05/16/23 09:30 Freq: Status: Active Protocol: Activity Type Activity Date Activity User E-sign Co-sign Detail Recorded Client Recorded Date Recorded By Document 05/16/23 09:59 RB Desktop 05/16/23 09:59 RB Document 05/23/23 09:58 Laptop 05/23/23 10:01 JF 05/16/23 05/23/23 09:59 09:58 Wound Care Center Nurse 3 #11 R Groin -Ulcer Cleansing Rinsed/ Rinsed/ Irrigated with Irrigated with Saline Saline -Foul Odor after Cleansing No -Other Dressing medihoney medihoney -Primary Dressing Covered/Secured with Dry Gauze, Dry Gauze, Secured with Secured with Tape Tape -Other Covering patient used own supply and did her own dressing. Treatment Response Procedure Tolerated Well Pain Scale: 0-10 Numeric Is Patient Pain Free? 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 (2) Soft tissue radionecrosis: CODE(S): L59.8 - Other specified disorders of the skin and subcutaneous tissue related to radiation; Y84.2 - Radiological procedure and radiotherapy as the cause of abnormal reaction of the patient, or of later complication, without mention of misadventure at the time of the procedure (3) soft tissue radiation injury: (4) Radiation injury: CODE(S): T66.XXXA - Radiation sickness, unspecified, initial encounter QUALIFIERS: Encounter type: subsequent encounter Qualified Code(s): T66.XXXD - Radiation sickness, unspecified, subsequent encounter (5) History of melanoma: CODE(S): Z85.820 - Personal history of malignant melanoma of skin PLAN: Plan This is a 68-year-old female with a severe soft tissue radiation injury that occurred as result of radiation treatments for malignant melanoma many years ago. A total of 5 EpiFix allografts have been placed in the recent past. Little improvement was noted. More recently, we implemented a Snap VAC. Because of the location in the right groin, an intertriginous zone, subject to perspiration and repetitive motion, the seal of the snap VAC could not be maintained for more than 48 to 72 hours. In some cases, the seal was maintained for only 24 hours. Therefore, it was necessary to transition to alternative treatment modalities. We are to continue the use of Medihoney Gel, which will be applied topically on a daily basis, and the wound packed with gauze. Improvement has been noted recently since the implementation of Medihoney Gel. The patient has been instructed in the appropriate means of application. The lack of progressive healing is thought to be due to the compromised arterial supply as a result of severe soft tissue radionecrosis. Recent culture results have been noted, and appear to be normal skin mare, rather than pathological organisms. The patient is to return in 2 weeks for reassessment. The patient's right groin wound, secondary to soft tissue radionecrosis, has been very slow to heal, despite several different modalities of treatment. Consideration is to be given to the use of hyperbaric oxygen therapy, which is indicated in treatment for soft tissue radionecrosis. HBO therapy has been used in the past, with satisfactory results. We have considered other alternative treatment modalities. Other options under consideration have included referral to a tertiary care center for myocutaneous flap reconstruction of the involved area. However, the described potential complications and needed rehabilitation have given the patient reservations about proceeding with such aggressive management in the past. The patient is to follow-up in 2 weeks for reevaluation. Total time: 24 minutes
== END 2023-06-08 23:59 | disposition home or self-care (01) ==
LOC: WC 09:30
PROVIDERS: PCP Family Medicine; Visit Provider Surgery
DX: L59.8 Other specified disorders of the skin and subcutaneous tissue related to radiation (principal); Z89.611 Acquired absence of right leg above knee; L97.112 Non-pressure chronic ulcer of right thigh with fat layer exposed; Z87.891 Personal history of nicotine dependence; Z92.3 Personal history of irradiation; T66.XXXD Radiation sickness, unspecified, subsequent encounter; Y84.2 Radiological procedure and radiotherapy as the cause of abnormal reaction of the patient, or of later complication, without mention of misadventure at the time of the procedure
CPT/HCPCS: 11042

== ENCOUNTER 2023-06-27 09:30 | Outpatient (RCR) | payer MEDICARE, OTHER, SELFPAY ==
[2023-06-09 00:41] VITALS: BP 158/78; PULSE 82; RESP 18; TEMP 36.1; BMI 29.8
[2023-06-13 09:32] VITALS: BP 160/87; PULSE 89; RESP 18; TEMP 35.6; BMI 29.8
--- NOTE | 2023-06-13 10:08 | HP.PCM_ITS ---
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 The patient was diagnosed with melanoma of the right calf in the 1969's. The melanoma was metastatic to lymph nodes. The patient underwent excision of her melanoma with lymphadenectomy in the right groin. She also underwent lengthy radiation treatments at the [facility] in [place], [place]. Melanoma recurred, and the patient was subsequently treated with monoclonal antibodies in 1984. However, due to the presence of severe radiation injury, persisting open wounds in the right thigh, MRSA infection, and severe radiation injury to the right femoral artery, the patient subsequently required right above-knee amputation in 2002. 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 Treatment included local ulcer care and hyperbaric oxygen therapy. She underwent a total of nearly 90 treatments of hyperbaric oxygen therapy. It is known that she tolerated the therapies well, and derived significant benefit. 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 She has also undergone several more sessions of hyperbaric oxygen therapy. She also received a series of 10 EpiFix allografts in the course of previous treatment. Each of the patient's prior courses of treatment in our facility have been protracted, with difficulties encountered in achieving complete healing. Her most recent course of treatment ended with successful healing and discharge in February 2021. The patient presented at this time with a recurrence of her right groin ulceration, again thought to be secondary to soft tissue radiation injury. The ulceration recurred spontaneously approximately 2-3 weeks prior to her presentation. The patient indicates that her health history has not changed since she was last treated in our facility. 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 Home Medications famotidine 20 mg tablet 20 mg PO 06/20/17 [History Last Taken Unknown] pravastatin 20 mg tablet 20 mg PO DAILY 06/20/17 [History Last Taken Unknown] famotidine 40 mg tablet PO 90 days ##90 12/26/17 [History Last Taken Unknown] pravastatin 20 mg tablet PO 90 days ##90 12/26/17 [History Last Taken Unknown] cyclobenzaprine 10 mg tablet 10 mg PO TID 02/07/23 [History Last Taken 02/07/23] Allergy/AdvReac Type Severity Reaction Status Date / Time No Known Allergies Allergy Verified 02/15/22 09:08 Family History Other Heart disease Hypertension Surgical History Hx of AKA (above knee amputation) Social History Smoking Status: Former smoker alcohol intake: current alcohol intake frequency: holidays/special occasions only Vital Signs Vital Signs Vital Signs: 06/13/23 09:32 Temperature 96.1 F L Temperature Source Temporal Pulse Rate 89 Respiratory Rate 18 Blood Pressure 160/87 H Blood Pressure Mean 111 Blood Pressure Source Monitor Blood Pressure Position Sitting Blood Pressure Location Left Arm Oxygen Delivery Method Room Air Weight Weight: 196 lb 1.696 oz Body Mass Index (BMI) 29.8 Physical Exam Const alert, oriented x3, no apparent distress and well nourished General Appearance: cooperative, comfortable, well kempt and well developed Orientation / Consciousness: awake, oriented to person, oriented to place and oriented to time HEENT normocephalic, head/scalp atraumatic and hearing grossly normal bilaterally HEENT Narrative: Able to visualize her ear tubes bilaterally. Right tube appears to be shifting out of TM. Head and Scalp: normal to inspection, normocephalic and atraumatic Face and Sinus: normal facial exam External Ear: external ears normal Eyes EOMs intact bilaterally General Eye: normal appearance of both eyes Resp normal respiratory effort, normal air movement, no retractions and no use of accessory muscles Effort and Inspection: able to speak in complete sentences and symmetric chest movement Cardio regular rate and regular rhythm Skin Wound Narrative: A well-healed right above-knee amputation stump is noted. An ulceration persists in the patient's right groin. There is a small amount of bioburden and nonviable tissue present. The ulceration appears to be slightly smaller. However, there is now a new satellite ulceration inferior to the original ulceration. Dimensions are documented elsewhere. The base of the ulcerations are generally pink and healthy in appearance. There is no sign of infection or cellulitis. Neuro oriented x3, CN's II-XII intact bilaterally, moves all extremities and no focal motor deficits Sensorium / Orientation: awake, alert, oriented to person, oriented to place and oriented to time Psych affect normal Appearance: grossly normal, appropriate and well kempt Attitude: calm and engaged Activity / Motor Behavior: appropriate eye contact Speech: normal speech Thought Process: normal thought process Attention / Concentration: attention grossly intact Insight: insight good Debridement Note Debridement Note Wound debrided: Right groin ulceration, soft tissue radionecrosis Laterality: Right Type of Debridement: Excisional debridement Anesthesia Used: 5% Lidocaine Gel Depth: Down to and including healthy tissue and in the subcutaneous layer Percentage of wound debrided: 100 Instrument Used: 3mm curette Tissue Removed: Bioburden and nonviable tissue Severity: Fat Layer Exposed Amount of bleeding with debridement: Mild Bleeding Controlled with: Compression and gauze Patient tolerated procedure: Patient tolerated procedure well Post-Debridement Measurements and Additional Note: Post-Debridement Measurements/Treatment - Nurse 1 - General Ulcer Assessment Start: 06/13/23 09:32 Freq: Status: Active Protocol: MICHAEL Activity Type Activity Date Activity User E-sign Co-sign Detail Recorded Client Recorded Date Recorded By Document 06/13/23 09:32 MW Desktop 06/13/23 09:39 MW 06/13/23 09:32 - Today's Visit Information Type of service Follow-up 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/PHILANTHROPY OFFICER ) Arrival Mode Ambulatory Transfer Assistance None Accompanied by self Patient Identification Verified (Name & Yes ) Patient Requires Transmission-Based No Precautions Safety Precautions NA Height and Weight Body Mass Index (BMI) 29.8 BMI Classification Overweight Vital Signs Temperature (97.8 F-99.1 F) 96.1 F L Temperature Source Temporal Pulse Rate (60-100) 89 Pulse Location Monitor Respiratory Rate (12-18) 18 Respiratory rate source Observation Oxygen Delivery Method Room Air Blood Pressure (90/60-120/80) 160/87 H Blood Pressure Mean 111 Source Monitor Position Sitting Blood Pressure Location Left Arm History Since Last Visit- (Skip if this is Patient's initial visit) Have you changed medications since your No last visit? Any new allergies or adverse reactions No Had a fall/change in ADL's that may No increase risk of falls Signs or symptoms of abuse and/or No neglect since last visit Have you been in the hospital since your No last visit? Has dressing in place as prescribed Yes Has compression in place as prescribed N/A Has offloadiing in place as prescribed N/A Experienced any changes in pain level or No management Left Footwear Regular Shoe Right Footwear Regular Shoe Pain Scale: 0-10 Numeric Is Patient Pain Free? Yes WC - Nurse 1 - General Ulcer Measurement Start: 06/13/23 09:32 Freq: Status: Active Protocol: Activity Type Activity Date Activity User E-sign Co-sign Detail Recorded Client Recorded Date Recorded By Document 06/13/23 09:32 MW Desktop 06/13/23 09:39 MW 06/13/23 09:32 Wound Center Nurse 1 #11 R Groin -Current Size (cm) - Length 1.3 -Current Size (cm) - Width 0.9 -Current Size (cm) - Depth 0.5 -Total Square Cm 1.17 -Undermining/Tunneling Starts (O'clock 7 ) -Undermining/Tunneling Ends (O'clock) 5 -Maximum Distance (cm) 0.4 -Exudate Amt Small -Exudate Type Serosanguineous -Wound Margin Thickened & Rolled Under -Granulation Amt Large (67-100%) -Granulation Quality [place] -Necrosis Amt Small (1-33%) -Necrotic Tissue Type Adherent Slough -Structure Exposed N/A -Texture (Blanche-wound Skin Appearance) Scarring -Moisture (Blanche-wound Skin Appearance) Maceration -Color (Blanche-wound Skin Appearance) No Abnormality -Temperature (Blanche-wound Skin No Abnormality Appearance) (Pt Warm) -Tenderness on Palpation (Blanche-wound No Skin Appearance) -Ulcer Cleansing Rinsed/ Irrigated with Saline -Foul Odor after Cleansing No -Anesthetic Used 4% Lidocaine Solution 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 (2) Soft tissue radionecrosis: CODE(S): L59.8 - Other specified disorders of the skin and subcutaneous tissue related to radiation; Y84.2 - Radiological procedure and radiotherapy as the cause of abnormal reaction of the patient, or of later complication, without mention of misadventure at the time of the procedure (3) soft tissue radiation injury: (4) Radiation injury: CODE(S): T66.XXXA - Radiation sickness, unspecified, initial encounter QUALIFIERS: Encounter type: subsequent encounter Qualified Code(s): T66.XXXD - Radiation sickness, unspecified, subsequent encounter (5) History of melanoma: CODE(S): Z85.820 - Personal history of malignant melanoma of skin PLAN: Plan This is a 68-year-old female with a severe soft tissue radiation injury that occurred as result of radiation treatments for malignant melanoma many years ago. A total of 5 EpiFix allografts have been placed in the recent past. Little improvement was noted. More recently, we implemented a Snap VAC. Because of the location in the right groin, an intertriginous zone, subject to perspiration and repetitive motion, the seal of the snap VAC could not be maintained for more than 48 to 72 hours. In some cases, the seal was maintained for only 24 hours. Therefore, it was necessary to transition to alternative treatment modalities. We are to continue the use of Medihoney Gel, which will be applied topically on a daily basis, and the wound packed with gauze. Improvement has been noted recently since the implementation of Medihoney Gel. The patient has been instructed in the appropriate means of application. The lack of significant, progressive healing is thought to be due to the compromised arterial supply as a result of severe soft tissue radionecrosis. Recent culture results have been noted, and appear to be normal skin mare, rather than pathological organisms. The patient is to return in 2 weeks for reassessment. The patient's right groin wound, secondary to soft tissue radionecrosis, has been very slow to heal, despite several different modalities of treatment. Consideration is to be given to the use of hyperbaric oxygen therapy, which is indicated in treatment for soft tissue radionecrosis. HBO therapy has been used in the past, with satisfactory results. We have considered other alternative treatment modalities. Other options under consideration have included referral to a tertiary care center for myocutaneous flap reconstruction of the involved area. However, the described potential complications and needed rehabilitation have given the patient reservations about proceeding with such aggressive man agement in the past. The patient is to follow-up in 2 weeks for reevaluation. We are to await the patient's insurance decision regarding preauthorization for hyperbaric oxygen therapy. Total time: 24 minutes
[2023-06-27 09:36] VITALS: BP 150/69; PULSE 82; RESP 20; TEMP 36.4; BMI 29.8
--- NOTE | 2023-06-27 10:46 | HP.PCM_ITS ---
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 The patient was diagnosed with melanoma of the right calf in the 1969's. The melanoma was metastatic to lymph nodes. The patient underwent excision of her melanoma with lymphadenectomy in the right groin. She also underwent lengthy radiation treatments at the [facility] in [place], [place]. Melanoma recurred, and the patient was subsequently treated with monoclonal antibodies in 1984. However, due to the presence of severe radiation injury, persisting open wounds in the right thigh, MRSA infection, and severe radiation injury to the right femoral artery, the patient subsequently required right above-knee amputation in 2002. 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 Treatment included local ulcer care and hyperbaric oxygen therapy. She underwent a total of nearly 90 treatments of hyperbaric oxygen therapy. It is known that she tolerated the therapies well, and derived significant benefit. 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 She has also undergone several more sessions of hyperbaric oxygen therapy. She also received a series of 10 EpiFix allografts in the course of previous treatment. Each of the patient's prior courses of treatment in our facility have been protracted, with difficulties encountered in achieving complete healing. Her most recent course of treatment ended with successful healing and discharge in February 2021. The patient presented at this time with a recurrence of her right groin ulceration, again thought to be secondary to soft tissue radiation injury. The ulceration recurred spontaneously approximately 2-3 weeks prior to her presentation. The patient indicates that her health history has not changed since she was last treated in our facility. 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 Home Medications famotidine 20 mg tablet 20 mg PO 06/20/17 [History Last Taken Unknown] pravastatin 20 mg tablet 20 mg PO DAILY 06/20/17 [History Last Taken Unknown] famotidine 40 mg tablet PO 90 days ##90 12/26/17 [History Last Taken Unknown] pravastatin 20 mg tablet PO 90 days ##90 12/26/17 [History Last Taken Unknown] cyclobenzaprine 10 mg tablet 10 mg PO TID 02/07/23 [History Last Taken 02/07/23] Allergy/AdvReac Type Severity Reaction Status Date / Time No Known Allergies Allergy Verified 02/15/22 09:08 Family History Other Heart disease Hypertension Surgical History Hx of AKA (above knee amputation) Social History Smoking Status: Former smoker alcohol intake: current alcohol intake frequency: holidays/special occasions only Vital Signs Vital Signs Vital Signs: 06/27/23 09:36 Temperature 97.5 F L Temperature Source Temporal Pulse Rate 82 Respiratory Rate 20 H Blood Pressure 150/69 H Blood Pressure Mean 96 Blood Pressure Source Monitor Weight Weight: 196 lb 1.696 oz Body Mass Index (BMI) 29.8 Physical Exam Const alert, oriented x3, no apparent distress and well nourished General Appearance: cooperative, comfortable, well kempt and well developed Orientation / Consciousness: awake, oriented to person, oriented to place and oriented to time HEENT normocephalic, head/scalp atraumatic and hearing grossly normal bilaterally HEENT Narrative: Able to visualize her ear tubes bilaterally. Right tube appears to be shifting out of TM. Head and Scalp: normal to inspection, normocephalic and atraumatic Face and Sinus: normal facial exam External Ear: external ears normal Eyes EOMs intact bilaterally General Eye: normal appearance of both eyes Resp normal respiratory effort, normal air movement, no retractions and no use of accessory muscles Effort and Inspection: able to speak in complete sentences and symmetric chest movement Cardio regular rate and regular rhythm Skin Wound Narrative: A well-healed right above-knee amputation stump is noted. An ulceration persists in the patient's right groin. There is a small amount of bioburden and nonviable tissue present. The ulceration appears to be slightly smaller. Dimensions are documented elsewhere. The base of the ulceration is generally pink and healthy in appearance. There is no sign of infection or cellulitis. Neuro oriented x3, CN's II-XII intact bilaterally, moves all extremities and no focal motor deficits Sensorium / Orientation: awake, alert, oriented to person, oriented to place and oriented to time Psych affect normal Appearance: grossly normal, appropriate and well kempt Attitude: calm and engaged Activity / Motor Behavior: appropriate eye contact Speech: normal speech Thought Process: normal thought process Attention / Concentration: attention grossly intact Insight: insight good Debridement Note Debridement Note Wound debrided: Right groin ulceration, soft tissue radionecrosis Laterality: Right Type of Debridement: Excisional debridement Anesthesia Used: 5% Lidocaine Gel Depth: Down to and including healthy tissue and in the subcutaneous layer Percentage of wound debrided: 100 Instrument Used: 3mm curette Tissue Removed: Bioburden and nonviable tissue Severity: Fat Layer Exposed Amount of bleeding with debridement: Mild Bleeding Controlled with: Compression and gauze Patient tolerated procedure: Patient tolerated procedure well Post-Debridement Measurements and Additional Note: Post-Debridement Measurements/Treatment - Nurse 1 - General Ulcer Assessment Start: 06/13/23 09:32 Freq: Status: Active Protocol: KISHACardizeANT Activity Type Activity Date Activity User E-sign Co-sign Detail Recorded Client Recorded Date Recorded By Document 06/13/23 09:32 MW Desktop 06/13/23 09:39 MW Document 06/27/23 09:36 DL Desktop 06/27/23 09:41 DL 06/13/23 06/27/23 09:32 09:36 - Today's Visit Information Type of service Follow-up Visit Follow-up 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/WIRE COMMUNICATIONS ENGINEER (Physician/WIRE COMMUNICATIONS ENGINEER ) ) Arrival Mode Ambulatory Ambulatory Transfer Assistance None None Accompanied by self Patient Identification Verified (Name & Yes Yes ) Patient Requires Transmission-Based No No Precautions Safety Precautions NA Height and Weight Body Mass Index (BMI) 29.8 29.8 BMI Classification Overweight Overweight Vital Signs Temperature (97.8 F-99.1 F) 96.1 F L 97.5 F L Temperature Source Temporal Temporal Pulse Rate (60-100) 89 82 Pulse Location Monitor Monitor Respiratory Rate (12-18) 18 20 H Respiratory rate source Observation Observation Oxygen Delivery Method Room Air Blood Pressure (90/60-120/80) 160/87 H 150/69 H Blood Pressure Mean 111 96 Source Monitor Monitor Position Sitting Blood Pressure Location Left Arm History Since Last Visit- (Skip if this is Patient's initial visit) Have you changed medications since your No No last visit? Any new allergies or adverse reactions No No Had a fall/change in ADL's that may No No increase risk of falls Signs or symptoms of abuse and/or No No neglect since last visit Have you been in the hospital since your No last visit? Has dressing in place as prescribed Yes Yes Has compression in place as prescribed N/A N/A Has offloadiing in place as prescribed N/A Yes Experienced any changes in pain level or No No management Left Footwear Regular Shoe Right Footwear Regular Shoe Pain Scale: 0-10 Numeric Is Patient Pain Free? Yes Yes WC - Nurse 1 - General Ulcer Measurement Start: 06/13/23 09:32 Freq: Status: Active Protocol: Activity Type Activity Date Activity User E-sign Co-sign Detail Recorded Client Recorded Date Recorded By Document 06/13/23 09:32 MW Desktop 06/13/23 09:39 MW Document 06/27/23 09:36 DL Desktop 06/27/23 09:41 DL 06/13/23 06/27/23 09:32 09:36 Wound Center Nurse 1 #11 R Groin -Current Size (cm) - Length 1.3 1.2 -Current Size (cm) - Width 0.9 0.7 -Current Size (cm) - Depth 0.5 0.4 -Total Square Cm 1.17 0.84 -Undermining/Tunneling Starts (O'clock 7 ) -Undermining/Tunneling Ends (O'clock) 5 -Maximum Distance (cm) 0.4 -Maximum Distance #2 (cm) 0.2 -Circular Undermining Yes -Exudate Amt Small Medium -Exudate Type Serosanguineous Serosanguineous -Wound Margin Thickened & Thickened & Rolled Under Rolled Under -Granulation Amt Large (67-100%) Large (67-100%) -Granulation Quality [place] -Necrosis Amt Small (1-33%) Small (1-33%) -Necrotic Tissue Type Adherent Slough Adherent Slough -Structure Exposed N/A N/A -Texture (Blanche-wound Skin Appearance) Scarring Scarring -Moisture (Blanche-wound Skin Appearance) Maceration Maceration -Color (Blanche-wound Skin Appearance) No Abnormality No Abnormality -Temperature (Blanche-wound Skin No Abnormality No Abnormality Appearance) (Pt Warm) (Pt Warm) -Tenderness on Palpation (Blanche-wound No Skin Appearance) -Ulcer Cleansing Rinsed/ Rinsed/ Irrigated with Irrigated with Saline Saline -Foul Odor after Cleansing No No -Anesthetic Used 4% Lidocaine 4% Lidocaine Solution Solution KISHA - Nurse 2 - General Ulcer CM Notes Start: 06/13/23 09:32 Freq: Status: Active Protocol: Activity Type Activity Date Activity User E-sign Co-sign Detail Recorded Client Recorded Date Recorded By Document 06/13/23 12:48 PL [id number] 06/13/23 12:49 PL 06/13/23 12:48 Wound Center Nurse 2 -Time 09:52 -Correct Patient Yes -Correct Side, Site, Position Yes -Correct Procedure Yes -Procedure Performed Yes -Type of Procedure Debridement -Clinical Debridement Subcutaneous -Tissue Removed Subcutaneous -Post Debridement (cm) - Length 1.3 -Post Debridement (cm) - Width 1.0 -Post Debridement (cm) - Depth 0.5 -Total Square (Post) (cm) 1.30 -Area of Debridement (cm) - Length 1.3 -Area of Debridement (cm) - Width 1.0 -Total Square (Area) (cm) 1.30 -Tunneling No -Undermining/Tunneling No -Circular Undermining No -Wound/Ulcer Outcome Not Healed -Ulcer Cleansing Rinsed/ Irrigated with Saline -Foul Odor after Cleansing No -Bioengineered Tissue No -Bleeding Controlled with Pressure -Treatment Response Procedure Tolerated Well -Debridement - Subq, 1st 20sq cm Yes Pain Scale: 0-10 Numeric Is Patient Pain Free? Yes KISHA - Nurse 3 - General Ulcer D/C NN Start: 06/13/23 09:32 Freq: Status: Active Protocol: Activity Type Activity Date Activity User E-sign Co-sign Detail Recorded Client Recorded Date Recorded By Document 06/27/23 10:06 DL Desktop 06/27/23 10:08 DL 06/27/23 10:06 Wound Care Center Nurse 3 #11 R Groin -Ulcer Cleansing Rinsed/ Irrigated with Saline -Foul Odor after Cleansing No -Other Dressing medihoney -Primary Dressing Covered/Secured with Dry Gauze, Secured with Tape Treatment Response Procedure Tolerated Well Pain Scale: 0-10 Numeric Is Patient Pain Free? Yes KISHA - Visit Discharge Discharge Condition Stable Ambulatory Status Ambulatory Transportation Private Auto Notes: Pt applied own dressing today in clinic. 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 (2) Soft tissue radionecrosis: CODE(S): L59.8 - Other specified disorders of the skin and subcutaneous tissue related to radiation; Y84.2 - Radiological procedure and radiotherapy as the cause of abnormal reaction of the patient, or of later complication, without mention of misadventure at the time of the procedure (3) soft tissue radiation injury: (4) Radiation injury: CODE(S): T66.XXXA - Radiation sickness, unspecified, initial encounter QUALIFIERS: Encounter type: subsequent encounter Qualified Code(s): T66.XXXD - Radiation sickness, unspecified, subsequent encounter (5) History of melanoma: CODE(S): Z85.820 - Personal history of malignant melanoma of skin PLAN: Plan This is a 68-year-old female with a severe soft tissue radiation injury that occurred as result of radiation treatments for malignant melanoma many years ago. A total of 5 EpiFix allografts have been placed in the recent past. Littl e improvement was noted. More recently, we implemented a Snap VAC. Because of the location in the right groin, an intertriginous zone, subject to perspiration and repetitive motion, the seal of the snap VAC could not be maintained for more than 48 to 72 hours. In some cases, the seal was maintained for only 24 hours. Therefore, it was necessary to transition to alternative treatment modalities. We are to continue the use of Medihoney Gel, which will be applied topically on a daily basis, and the wound packed with gauze. Improvement has been noted recently since the implementation of Medihoney Gel. The patient has been instructed in the appropriate means of application. The lack of significant, progressive healing is thought to be due to the compromised arterial supply as a result of severe soft tissue radionecrosis. Recent culture results have been noted, and appear to be normal skin mare, rather than pathological organisms. The patient is to return in 2 weeks for reassessment. The patient's right groin wound, secondary to soft tissue radionecrosis, has been very slow to heal, despite several different modalities of treatment. Consideration is to be given to the use of hyperbaric oxygen therapy, which is indicated in treatment for soft tissue radionecrosis. HBO therapy has been used in the past, with satisfactory results. We have considered other alternative treatment modalities. Other options under consideration have included referral to a tertiary care center for myocutaneous flap reconstruction of the involved area. However, the described potential complications and needed rehabilitation have given the patient reservations about proceeding with such aggressive management in the past. The patient is to follow-up in 2 weeks for reevaluation. We are t o await the patient's insurance decision regarding preauthorization for hyperbaric oxygen therapy. Total time: 24 minutes
== END 2023-07-09 23:59 | disposition home or self-care (01) ==
LOC: WC 09:30
PROVIDERS: PCP Family Medicine; Visit Provider Surgery
DX: L59.8 Other specified disorders of the skin and subcutaneous tissue related to radiation (principal); L97.112 Non-pressure chronic ulcer of right thigh with fat layer exposed; Z87.891 Personal history of nicotine dependence; Z92.3 Personal history of irradiation; Y84.2 Radiological procedure and radiotherapy as the cause of abnormal reaction of the patient, or of later complication, without mention of misadventure at the time of the procedure; T66.XXXD Radiation sickness, unspecified, subsequent encounter; Z85.820 Personal history of malignant melanoma of skin
CPT/HCPCS: 11042

== ENCOUNTER 2023-08-08 09:30 | Outpatient (RCR) | payer MEDICARE, OTHER, SELFPAY ==
[2023-07-10 00:43] VITALS: BP 150/69; PULSE 82; RESP 20; TEMP 36.4; BMI 29.8
[2023-07-11 09:20] VITALS: BP 157/79; PULSE 92; RESP 16; TEMP 35.9; BMI 29.8
--- NOTE | 2023-07-11 09:48 | PCM.WC.HP ---
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 The patient was diagnosed with melanoma of the right calf in the 1969's. The melanoma was metastatic to lymph nodes. The patient underwent excision of her melanoma with lymphadenectomy in the right groin. She also underwent lengthy radiation treatments at the [facility] in [place], [place]. Melanoma recurred, and the patient was subsequently treated with monoclonal antibodies in 1984. However, due to the presence of severe radiation injury, persisting open wounds in the right thigh, MRSA infection, and severe radiation injury to the right femoral artery, the patient subsequently required right above-knee amputation in 2002. 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 Treatment included local ulcer care and hyperbaric oxygen therapy. She underwent a total of nearly 90 treatments of hyperbaric oxygen therapy. It is known that she tolerated the therapies well, and derived significant benefit. 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 She has also undergone several more sessions of hyperbaric oxygen therapy. She also received a series of 10 EpiFix allografts in the course of previous treatment. Each of the patient's prior courses of treatment in our facility have been protracted, with difficulties encountered in achieving complete healing. Her most recent course of treatment ended with successful healing and discharge in February 2021. The patient presented at this time with a recurrence of her right groin ulceration, again thought to be secondary to soft tissue radiation injury. The ulceration recurred spontaneously approximately 2-3 weeks prior to her presentation. The patient indicates that her health history has not changed since she was last treated in our facility. 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 Home Medications famotidine 20 mg tablet 20 mg PO 06/20/17 [History Last Taken Unknown] pravastatin 20 mg tablet 20 mg PO DAILY 06/20/17 [History Last Taken Unknown] famotidine 40 mg tablet PO 90 days ##90 12/26/17 [History Last Taken Unknown] pravastatin 20 mg tablet PO 90 days ##90 12/26/17 [History Last Taken Unknown] cyclobenzaprine 10 mg tablet 10 mg PO TID 02/07/23 [History Last Taken 02/07/23] Allergy/AdvReac Type Severity Reaction Status Date / Time No Known Allergies Allergy Verified 02/15/22 09:08 Family History Other Heart disease Hypertension Surgical History Hx of AKA (above knee amputation) Social History Smoking Status: Former smoker alcohol intake: current alcohol intake frequency: holidays/special occasions only Vital Signs Vital Signs Vital Signs: 07/11/23 09:20 Temperature 96.7 F L Temperature Source Temporal Pulse Rate 92 Respiratory Rate 16 Blood Pressure 157/79 H Blood Pressure Mean 105 Blood Pressure Source Monitor Blood Pressure Position Sitting Oxygen Delivery Method Room Air Weight Weight: 196 lb 1.696 oz Body Mass Index (BMI) 29.8 Physical Exam Const alert, oriented x3, no apparent distress and well nourished General Appearance: cooperative, comfortable, well kempt and well developed Orientation / Consciousness: awake, oriented to person, oriented to place and oriented to time HEENT normocephalic, head/scalp atraumatic and hearing grossly normal bilaterally HEENT Narrative: Able to visualize her ear tubes bilaterally. Right tube appears to be shifting out of TM. Head and Scalp: normal to inspection, normocephalic and atraumatic Face and Sinus: normal facial exam External Ear: external ears normal Eyes EOMs intact bilaterally General Eye: normal appearance of both eyes Resp normal respiratory effort, normal air movement, no retractions and no use of accessory muscles Effort and Inspection: able to speak in complete sentences and symmetric chest movement Cardio regular rate and regular rhythm Skin Wound Narrative: A well-healed right above-knee amputation stump is noted. An ulceration persists in the patient's right groin. There is a small amount of bioburden and nonviable tissue present. The ulceration appears to be slightly smaller. Dimensions are documented elsewhere. However, there is now a satellite ulceration inferior to the main ulceration. The dimensions of this ulceration are noted elsewhere. The ulceration is generally pink and healthy in appearance, with a small amount of bioburden. Between the 2 ulcerations, there is an area of hypertrophic tissue which continues to increase in size and area. There is no sign of infection or cellulitis at the site of the right groin ulcerations. Neuro oriented x3, CN's II-XII intact bilaterally, moves all extremities and no focal motor deficits Sensorium / Orientation: awake, alert, oriented to person, oriented to place and oriented to time Psych affect normal Appearance: grossly normal, appropriate and well kempt Attitude: calm and engaged Activity / Motor Behavior: appropriate eye contact Speech: normal speech Thought Process: normal thought process Attention / Concentration: attention grossly intact Insight: insight good Debridement Note Debridement Note Wound debrided: Right groin ulcerations, soft tissue radionecrosis Laterality: Right Type of Debridement: Excisional debridement Anesthesia Used: 5% Lidocaine Gel Depth: Down to and including healthy tissue and in the subcutaneous layer Percentage of wound debrided: 100 Instrument Used: 3mm curette Tissue Removed: Bioburden and nonviable tissue Severity: Fat Layer Exposed Amount of bleeding with debridement: Mild Bleeding Controlled with: Compression and gauze Patient tolerated procedure: Patient tolerated procedure well Post-Debridement Measurements and Additional Note: Post-Debridement Measurements/Treatment - Nurse 1 - General Ulcer Assessment Start: 07/11/23 09:19 Freq: Status: Active Protocol: .LOWEXT Activity Type Activity Date Activity User E-sign Co-sign Detail Recorded Client Recorded Date Recorded By Document 07/11/23 09:20 [facility] Desktop 07/11/23 09:27 [facility] 07/11/23 09:20 - Today's Visit Information Type of service 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 ) Arrival Mode Ambulatory, Crutches Transfer Assistance None Patient Identification Verified (Name & Yes ) Patient Requires Transmission-Based No Precautions Height and Weight Body Mass Index (BMI) 29.8 BMI Classification Overweight Vital Signs Temperature (97.8 F-99.1 F) 96.7 F L Temperature Source Temporal Pulse Rate (60-100) 92 Pulse Location Monitor Respiratory Rate (12-18) 16 Respiratory rate source Observation Oxygen Delivery Method Room Air Blood Pressure (90/60-120/80) 157/79 H Blood Pressure Mean 105 Source Monitor Position Sitting History Since Last Visit- (Skip if this is Patient's initial visit) Have you changed medications since your No last visit? Any new allergies or adverse reactions No Had a fall/change in ADL's that may No increase risk of falls Signs or symptoms of abuse and/or No neglect since last visit Have you been in the hospital since your No last visit? Has dressing in place as prescribed Yes Has compression in place as prescribed N/A Has offloadiing in place as prescribed N/A Experienced any changes in pain level or No management Pain Scale: 0-10 Numeric Is Patient Pain Free? Yes WC - Nurse 1 - General Ulcer Measurement Start: 07/11/23 09:19 Freq: Status: Active Protocol: Activity Type Activity Date Activity User E-sign Co-sign Detail Recorded Client Recorded Date Recorded By Document 07/11/23 09:20 [facility] Desktop 07/11/23 09:27 [facility] 07/11/23 09:20 Wound Center Nurse 1 #12- R GROIN INFERIOR CLUSTER -Combined with other wound No -Current Size (cm) - Length 1 -Current Size (cm) - Width 2.2 -Current Size (cm) - Depth 0.2 -Total Square Cm 2.2 -Date of Last Picture (Recall this 07/11/23 field) -Photo Taken Yes -Epithelialization None Present -Tunneling No -Undermining/Tunneling No -Circular Undermining No -Exudate Amt Medium -Exudate Type Serosanguineous -Wound Margin Thickened & Rolled Under -Granulation Amt Large (67-100%) -Granulation Quality Red -Slough/Fibrin Yes -Necrosis Amt Small (1-33%) -Necrotic Tissue Type Adherent Slough -Texture (Blanche-wound Skin Appearance) Assessed, Scarring -Moisture (Blanche-wound Skin Appearance) Assessed -Color (Blanche-wound Skin Appearance) Assessed, Erythema -Temperature (Blanche-wound Skin No Abnormality Appearance) (Pt Warm) -Tenderness on Palpation (Blanche-wound No Skin Appearance) -Ulcer Cleansing Soap and Water -Foul Odor after Cleansing No -Anesthetic Used 4% Lidocaine Solution #11 R Groin -Combined with other wound No -Current Size (cm) - Length 1.3 -Current Size (cm) - Width 0.7 -Current Size (cm) - Depth 0.3 -Total Square Cm 0.91 -Date of Last Picture (Recall this 07/11/23 field) -Photo Taken Yes -Tunneling No -Undermining/Tunneling No -Exudate Amt Medium -Exudate Type Serosanguineous -Wound Margin Distinct, Outline Attached -Texture (Blanche-wound Skin Appearance) Assessed, Scarring -Moisture (Blanche-wound Skin Appearance) Assessed -Color (Blanche-wound Skin Appearance) Assessed -Temperature (Blanche-wound Skin No Abnormality Appearance) (Pt Warm) -Tenderness on Palpation (Blanche-wound No Skin Appearance) -Ulcer Cleansing Rinsed/ Irrigated with Saline -Foul Odor after Cleansing No -Anesthetic Used 4% Lidocaine Solution - Nurse 3 - General Ulcer D/C NN Start: 07/11/23 09:19 Freq: Status: Active Protocol: Activity Type Activity Date Activity User E-sign Co-sign Detail Recorded Client Recorded Date Recorded By Document 07/11/23 09:46 [facility] Desktop 07/11/23 09:48 [facility] 07/11/23 09:46 Wound Care Center Nurse 3 #12- R GROIN INFERIOR CLUSTER -Ulcer Cleansing Rinsed/ Irrigated with Saline -Foul Odor after Cleansing No -Other Dressing PT WILL APPLY COMPOUND W TO SLOUGH AREA -Primary Dressing Covered/Secured with Dry Gauze, Secured with Tape -Other Covering PT APPLIES OWN DRSG #11 R Groin -Other Dressing PT APPLIES MEDIHONEY; -Primary Dressing Covered/Secured with Dry Gauze, Secured with Tape Treatment Response Procedure Tolerated Well Pain Scale: 0-10 Numeric Is Patient Pain Free? 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 (2) Soft tissue radionecrosis: CODE(S): L59.8 - Other specified disorders of the skin and subcutaneous tissue related to radiation; Y84.2 - Radiological procedure and radiotherapy as the cause of abnormal reaction of the patient, or of later complication, without mention of misadventure at the time of the procedure (3) soft tissue radiation injury: (4) Radiation injury: CODE(S): T66.XXXA - Radiation sickness, unspecified, initial encounter QUALIFIERS: Encounter type: subsequent encounter Qualified Code(s): T66.XXXD - Radiation sickness, unspecified, subsequent encounter (5) History of melanoma: CODE(S): Z85.820 - Personal history of malignant melanoma of skin PLAN: Plan This is a 68-year-old female with a severe soft tissue radiation injury that occurred as result of radiation treatments for malignant melanoma many years ago. A total of 5 EpiFix allografts have been placed in the recent past. Little improvement was noted. More recently, we implemented a Snap VAC. Because of the location in the right groin, an intertriginous zone, subject to perspiration and repetitive motion, the seal of the snap VAC could not be maintained for more than 48 to 72 hours. In some cases, the seal was maintained for only 24 hours. Therefore, it was necessary to transition to alternative treatment modalities. We are to continue the use of Medihoney Gel, which will be applied topically on a daily basis, and the wound packed with gauze. A new satellite ulceration has appeared, which will be treated in the same fashion using Medihoney Gel. Improvement has been noted recently since the implementation of Medihoney Gel, and the primary ulceration has continued to slowly decrease in size. Between the 2 ulcerations in the right groin, there is an area of hypertrophic epidermis, with slough. The patient is to use salicylic acid topically on the site, in an effort to minimize its surface area. The salicylic acid is a product which can be obtained [id number]. The lack of significant, progressive healing is thought to be due to the compromised arterial supply as a result of severe soft tissue radionecrosis. Recent culture results have been noted, and appear to be normal skin mare, rather than pathological organisms. The patient is to return in 2 weeks for reassessment. The patient's right groin wound, secondary to soft tissue radionecrosis, has been very slow to heal, despite several different modalities of treatment. Consideration is to be given to the use of hyperbaric oxygen therapy, which is indicated in treatment for soft tissue radionecrosis. HBO therapy has been used in the past, with satisfactory results. We have considered other alternative treatment modalities. Other options under consideration have included referral to a tertiary care center for myocutaneous flap reconstruction of the involved area. However, the described potential complications and needed rehabilitation have given the patient reservations about proceeding with such aggressive management in the past. The patient is to follow-up in 2 weeks for reevaluation. We are to await the patient's insurance decision regarding preauthorization for hyperbaric oxygen therapy. Total time: 26 minutes
[2023-07-25 09:21] VITALS: BP 129/78; PULSE 86; TEMP 36.2; BMI 29.8
--- NOTE | 2023-07-25 09:59 | HP.PCM_ITS ---
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 The patient was diagnosed with melanoma of the right calf in the 1969's. The melanoma was metastatic to lymph nodes. The patient underwent excision of her melanoma with lymphadenectomy in the right groin. She also underwent lengthy radiation treatments at the [facility] in [place], [place]. Melanoma recurred, and the patient was subsequently treated with monoclonal antibodies in 1984. However, due to the presence of severe radiation injury, persisting open wounds in the right thigh, MRSA infection, and severe radiation injury to the right femoral artery, the patient subsequently required right above-knee amputation in 2002. 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 Treatment included local ulcer care and hyperbaric oxygen therapy. She underwent a total of nearly 90 treatments of hyperbaric oxygen therapy. It is known that she tolerated the therapies well, and derived significant benefit. 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 She has also undergone several more sessions of hyperbaric oxygen therapy. She also received a series of 10 EpiFix allografts in the course of previous treatment. Each of the patient's prior courses of treatment in our facility have been protracted, with difficulties encountered in achieving complete healing. Her most recent course of treatment ended with successful healing and discharge in February 2021. The patient presented at this time with a recurrence of her right groin ulceration, again thought to be secondary to soft tissue radiation injury. The ulceration recurred spontaneously approximately 2-3 weeks prior to her presentation. The patient indicates that her health history has not changed since she was last treated in our facility. 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 Home Medications famotidine 20 mg tablet 20 mg PO 06/20/17 [History Last Taken Unknown] pravastatin 20 mg tablet 20 mg PO DAILY 06/20/17 [History Last Taken Unknown] famotidine 40 mg tablet PO 90 days ##90 12/26/17 [History Last Taken Unknown] pravastatin 20 mg tablet PO 90 days ##90 12/26/17 [History Last Taken Unknown] cyclobenzaprine 10 mg tablet 10 mg PO TID 02/07/23 [History Last Taken 02/07/23] Allergy/AdvReac Type Severity Reaction Status Date / Time No Known Allergies Allergy Verified 02/15/22 09:08 Family History Other Heart disease Hypertension Surgical History Hx of AKA (above knee amputation) Social History Smoking Status: Former smoker alcohol intake: current alcohol intake frequency: holidays/special occasions only Vital Signs Vital Signs Vital Signs: 07/25/23 09:21 Temperature 97.1 F L Temperature Source Temporal Pulse Rate 86 Blood Pressure 129/78 H Blood Pressure Mean 95 Blood Pressure Source Monitor Blood Pressure Position Semi-Fowlers Blood Pressure Location Left Arm Oxygen Delivery Method Room Air Weight Weight: 196 lb 1.696 oz Body Mass Index (BMI) 29.8 Physical Exam Const alert, oriented x3, no apparent distress and well nourished General Appearance: cooperative, comfortable, well kempt and well developed Orientation / Consciousness: awake, oriented to person, oriented to place and oriented to time HEENT normocephalic, head/scalp atraumatic and hearing grossly normal bilaterally HEENT Narrative: Able to visualize her ear tubes bilaterally. Right tube appears to be shifting out of TM. Head and Scalp: normal to inspection, normocephalic and atraumatic Face and Sinus: normal facial exam External Ear: external ears normal Eyes EOMs intact bilaterally General Eye: normal appearance of both eyes Resp normal respiratory effort, normal air movement, no retractions and no use of accessory muscles Effort and Inspection: able to speak in complete sentences and symmetric chest movement Cardio regular rate and regular rhythm Skin Wound Narrative: A well-healed right above-knee amputation stump is noted. An ulceration persists in the patient's right groin. There is a small amount of bioburden and nonviable tissue present. The ulceration appears to be slightly smaller. Dimensions are documented elsewhere. However, there is now a satellite ulceration inferior to the main ulceration. The dimensions of this ulceration are noted elsewhere. The ulcerations are generally pink and healthy in appearance, with a small amount of bioburden. Between the 2 ulcerations, there is an area of hypertrophic tissue, which has diminished in size since the patient was last seen. There is no sign of infection or cellulitis at the site of the right groin ulcerations. Neuro oriented x3, CN's II-XII intact bilaterally, moves all extremities and no focal motor deficits Sensorium / Orientation: awake, alert, oriented to person, oriented to place and oriented to time Psych affect normal Appearance: grossly normal, appropriate and well kempt Attitude: calm and engaged Activity / Motor Behavior: appropriate eye contact Speech: normal speech Thought Process: normal thought process Attention / Concentration: attention grossly intact Insight: insight good Debridement Note Debridement Note Wound debrided: Right groin ulcerations, soft tissue radionecrosis Laterality: Right Type of Debridement: Excisional debridement Anesthesia Used: 5% Lidocaine Gel Depth: Down to and including healthy tissue and in the subcutaneous layer Percentage of wound debrided: 100 Instrument Used: 3mm curette Tissue Removed: Bioburden and nonviable tissue Severity: Fat Layer Exposed Amount of bleeding with debridement: Mild Bleeding Controlled with: Compression and gauze Patient tolerated procedure: Patient tolerated procedure well Post-Debridement Measurements and Additional Note: Post-Debridement Measurements/Treatment - Nurse 1 - General Ulcer Assessment Start: 07/11/23 09:19 Freq: Status: Active Protocol: .XOCHITL Activity Type Activity Date Activity User E-sign Co-sign Detail Recorded Client Recorded Date Recorded By Document 07/11/23 09:20 [facility] Desktop 07/11/23 09:27 [facility] Document 07/25/23 09:21 OK Desktop 07/25/23 09:30 OK 07/11/23 07/25/23 09:20 09:21 - Today's Visit Information Type of service Follow-up Visit Follow-up 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/DIRECTOR MACHINE (Physician/DIRECTOR MACHINE ) ) Arrival Mode Ambulatory, Ambulatory Crutches Transfer Assistance None Patient Identification Verified (Name & Yes Yes ) Patient Requires Transmission-Based No Precautions Safety Precautions Fall Prevention Height and Weight Body Mass Index (BMI) 29.8 29.8 BMI Classification Overweight Overweight Vital Signs Temperature (97.8 F-99.1 F) 96.7 F L 97.1 F L Temperature Source Temporal Temporal Pulse Rate (60-100) 92 86 Pulse Location Monitor Monitor Respiratory Rate (12-18) 16 Respiratory rate source Observation Observation Oxygen Delivery Method Room Air Room Air Blood Pressure (90/60-120/80) 157/79 H 129/78 H Blood Pressure Mean 105 95 Source Monitor Monitor Position Sitting Semi-Fowlers Blood Pressure Location Left Arm History Since Last Visit- (Skip if this is Patient's initial visit) Have you changed medications since your No last visit? Any new allergies or adverse reactions No Had a fall/change in ADL's that may No increase risk of falls Signs or symptoms of abuse and/or No neglect since last visit Have you been in the hospital since your No last visit? Has dressing in place as prescribed Yes Yes Has compression in place as prescribed N/A N/A Has offloadiing in place as prescribed N/A N/A Experienced any changes in pain level or No No management Left Footwear Regular Shoe Right Footwear Regular Shoe Pain Scale: 0-10 Numeric Is Patient Pain Free? Yes Yes - Nurse 1 - General Ulcer Measurement Start: 07/11/23 09:19 Freq: Status: Active Protocol: Activity Type Activity Date Activity User E-sign Co-sign Detail Recorded Client Recorded Date Recorded By Document 07/11/23 09:20 [facility] Desktop 07/11/23 09:27 [facility] Document 07/25/23 09:21 OK Desktop 07/25/23 09:30 OK 07/11/23 07/25/23 09:20 09:21 Wound Center Nurse 1 #12- R GROIN INFERIOR CLUSTER -Combined with other wound No -Current Size (cm) - Length 1 1.2 -Current Size (cm) - Width 2.2 0.5 -Current Size (cm) - Depth 0.2 0.2 -Total Square Cm 2.2 0.60 -Date of Last Picture (Recall this 07/11/23 field) -Photo Taken Yes -Epithelialization None Present -Tunneling No -Undermining/Tunneling No -Circular Undermining No -Exudate Amt Medium Medium -Exudate Type Serosanguineous Serosanguineous -Wound Margin Thickened & Distinct, Rolled Under Outline Attached -Granulation Amt Large (67-100%) Medium (34-66%) -Granulation Quality Red Red -Slough/Fibrin Yes -Necrosis Amt Small (1-33%) Medium (34-66%) -Necrotic Tissue Type Adherent Slough Adherent Slough -Texture (Blanche-wound Skin Appearance) Assessed, Assessed Scarring -Moisture (Blanche-wound Skin Appearance) Assessed Assessed -Color (Blanche-wound Skin Appearance) Assessed, Assessed Erythema -Temperature (Blanche-wound Skin No Abnormality No Abnormality Appearance) (Pt Warm) (Pt Warm) -Tenderness on Palpation (Blanche-wound No No Skin Appearance) -Ulcer Cleansing Soap and Water Rinsed/ Irrigated with Saline -Foul Odor after Cleansing No No -Anesthetic Used 4% Lidocaine 4% Lidocaine Solution Solution #11 R Groin -Combined with other wound No -Current Size (cm) - Length 1.3 1.5 -Current Size (cm) - Width 0.7 0.9 -Current Size (cm) - Depth 0.3 0.3 -Total Square Cm 0.91 1.35 -Date of Last Picture (Recall this 07/11/23 field) -Photo Taken Yes -Tunneling No -Undermining/Tunneling No -Exudate Amt Medium Medium -Exudate Type Serosanguineous Serosanguineous -Wound Margin Distinct, Distinct, Outline Outline Attached Attached -Granulation Amt Medium (34-66%) -Granulation Quality Red -Necrosis Amt Small (1-33%) -Necrotic Tissue Type Adherent Slough -Texture (Blanche-wound Skin Appearance) Assessed, Assessed Scarring -Moisture (Blanche-wound Skin Appearance) Assessed Assessed -Color (Blanche-wound Skin Appearance) Assessed Assessed -Temperature (Blanche-wound Skin No Abnormality No Abnormality Appearance) (Pt Warm) (Pt Warm) -Tenderness on Palpation (Blanche-wound No No Skin Appearance) -Ulcer Cleansing Rinsed/ Soap and Water Irrigated with Saline -Foul Odor after Cleansing No -Anesthetic Used 4% Lidocaine 4% Lidocaine Solution Solution Lower Limb Edema Present NA WC - Nurse 2 - General Ulcer CM Notes Start: 07/11/23 09:19 Freq: Status: Active Protocol: Activity Type Activity Date Activity User E-sign Co-sign Detail Recorded Client Recorded Date Recorded By Document 07/11/23 11:22 PL [id number] 07/11/23 11:24 PL 07/11/23 11:22 Wound Center Nurse 2 #12- R GROIN INFERIOR CLUSTER -Time 09:38 -Correct Patient Yes -Correct Side, Site, Position Yes -Correct Procedure Yes -Procedure Performed Yes -Type of Procedure Debridement -Clinical Debridement Subcutaneous -Tissue Removed Subcutaneous -Post Debridement (cm) - Length 1.0 -Post Debridement (cm) - Width 2.2 -Post Debridement (cm) - Depth 0.2 -Total Square (Post) (cm) 2.20 -Area of Debridement (cm) - Length 1.0 -Area of Debridement (cm) - Width 2.2 -Total Square (Area) (cm) 2.20 -Tunneling No -Undermining/Tunneling No -Circular Undermining No -Wound/Ulcer Outcome Not Healed -Ulcer Cleansing Rinsed/ Irrigated with Saline -Foul Odor after Cleansing No -Bioengineered Tissue No -Bleeding Controlled with Pressure -Treatment Response Procedure Tolerated Well -Debridement - Subq, 1st 20sq cm No #11 R Groin -Time 09:38 -Correct Patient Yes -Correct Side, Site, Position Yes -Correct Procedure Yes -Procedure Performed Yes -Type of Procedure Debridement -Clinical Debridement Subcutaneous -Tissue Removed Subcutaneous -Post Debridement (cm) - Length 1.3 -Post Debridement (cm) - Width 0.7 -Post Debridement (cm) - Depth 0.3 -Total Square (Post) (cm) 0.91 -Area of Debridement (cm) - Length 1.3 -Area of Debridement (cm) - Width 0.7 -Total Square (Area) (cm) 0.91 -Tunneling No -Undermining/Tunneling No -Circular Undermining No -Wound/Ulcer Outcome Not Healed -Ulcer Cleansing Rinsed/ Irrigated with Saline -Foul Odor after Cleansing No -Bioengineered Tissue No -Bleeding Controlled with Pressure -Treatment Response Procedure Tolerated Well -Debridement - Subq, 1st 20sq cm Yes Pain Scale: 0-10 Numeric Is Patient Pain Free? Yes WC - Nurse 3 - General Ulcer D/C NN Start: 07/11/23 09:19 Freq: Status: Active Protocol: Activity Type Activity Date Activity User E-sign Co-sign Detail Recorded Client Recorded Date Recorded By Document 07/11/23 09:46 [facility] Desktop 07/11/23 09:48 [facility] Document 07/25/23 09:47 Desktop 07/25/23 09:48 KW 07/11/23 07/25/23 09:46 09:47 Wound Care Center Nurse 3 #12- R GROIN INFERIOR CLUSTER -Ulcer Cleansing Rinsed/ Irrigated with Saline -Foul Odor after Cleansing No -Other Dressing PT WILL APPLY COMPOUND W TO SLOUGH AREA -Primary Dressing Covered/Secured with Dry Gauze, Dry Gauze, Secured with Secured with Tape Tape -Other Covering PT APPLIES OWN DRSG #11 R Groin -Other Dressing PT APPLIES MEDIHONEY; -Primary Dressing Covered/Secured with Dry Gauze, Dry Gauze, Secured with Secured with Tape Tape Treatment Response Procedure Tolerated Well Pain Scale: 0-10 Numeric Is Patient Pain Free? 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 (2) Soft tissue radionecrosis: CODE(S): L59.8 - Other specified disorders of the skin and subcutaneous tissue related to radiation; Y84.2 - Radiological procedure and radiotherapy as the cause of abnormal reaction of the patient, or of later complication, without mention of misadventure at the time of the procedure (3) soft tissue radiation injury: (4) Radiation injury: CODE(S): T66.XXXA - Radiation sickness, unspecified, initial encounter QUALIFIERS: Encounter type: subsequent encounter Qualified Code(s): T66.XXXD - Radiation sickness, unspecified, subsequent encounter (5) History of melanoma: CODE(S): Z85.820 - Personal history of malignant melanoma of skin PLAN: Plan This is a 68-year-old female with a severe soft tissue radiation injury that occurred as result of radiation treatments for malignant melanoma many years ago. A total of 5 EpiFix allografts have been placed in the recent past. Little improvement was noted. More recently, we implemented a Snap VAC. Because of the location in the right groin, an intertriginous zone, subject to perspiration and repetitive motion, the seal of the snap VAC could not be maintained for more than 48 to 72 hours. In some cases, the seal was maintained for only 24 hours. Therefore, it was necessary to transition to alternative treatment modalities. We are to continue the use of Medihoney Gel, which will be applied topically on a daily basis, and the wound packed with gauze. A new satellite ulceration has appeared, which will be treated in the same fashion using Medihoney Gel. Improvement has been noted recently since the implementation of Medihoney Gel, and the primary ulceration has continued to slowly decrease in size. Between the 2 ulcerations in the right groin, there is an area of hypertrophic epidermis, with slough. The patient is to continue using salicylic acid topically on the site, in an effort to minimize its surface area. The salicylic acid is a product which can be obtained [id number]. Thus far, there has been a decrease in the amount of hypertrophic epidermis, res ulting from the use of salicylic acid. The lack of significant, progressive healing is thought to be due to the compromised arterial supply as a result of severe soft tissue radionecrosis. Recent culture results have been noted, and appear to be normal skin mare, rather than pathological organisms. The patient is to return in 2 weeks for reassessment. The patient's right groin wound, secondary to soft tissue radionecrosis, has been very slow to heal, despite several different modalities of treatment. Consideration is to be given to the use of hyperbaric oxygen therapy, which is indicated in treatment for soft tissue radionecrosis. HBO therapy has been used in the past, with satisfactory results. We have considered other alternative treatment modalities. Other options under consideration have included referral to a tertiary care center for myocutaneous flap reconstruction of the involved area. However, the described potential complications and needed rehabilitation have given the patient reservations about proceeding with such aggressive management in the past. The patient is scheduled to be seen by her prosthetists, in an effort to assure that her right lower extremity prosthesis is not causing pressure or shear forces on the ulcerations in the right groin. The patient is to follow-up in 2 weeks for reevaluation. We are to await the patient's insurance decision regarding preauthorization for hyperbaric oxygen therapy. Total time: 25 minutes
[2023-08-08 09:46] VITALS: BP 154/84; PULSE 82; RESP 18; TEMP 36.4; BMI 29.8
--- NOTE | 2023-08-08 10:32 | PCM.WC.HP ---
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 The patient was diagnosed with melanoma of the right calf in the 1969's. The melanoma was metastatic to lymph nodes. The patient underwent excision of her melanoma with lymphadenectomy in the right groin. She also underwent lengthy radiation treatments at the [facility] in [facility], [place]. Melanoma recurred, and the patient was subsequently treated with monoclonal antibodies in 1984. However, due to the presence of severe radiation injury, persisting open wounds in the right thigh, MRSA infection, and severe radiation injury to the right femoral artery, the patient subsequently required right above-knee amputation in 2002. 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 Treatment included local ulcer care and hyperbaric oxygen therapy. She underwent a total of nearly 90 treatments of hyperbaric oxygen therapy. It is known that she tolerated the therapies well, and derived significant benefit. 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 She has also undergone several more sessions of hyperbaric oxygen therapy. She also received a series of 10 EpiFix allografts in the course of previous treatment. Each of the patient's prior courses of treatment in our facility have been protracted, with difficulties encountered in achieving complete healing. Her most recent course of treatment ended with successful healing and discharge in February 2021. The patient presented at this time with a recurrence of her right groin ulceration, again thought to be secondary to soft tissue radiation injury. The ulceration recurred spontaneously approximately 2-3 weeks prior to her presentation. The patient indicates that her health history has not changed since she was last treated in our facility. 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 Home Medications famotidine 20 mg tablet 20 mg PO 06/20/17 [History Last Taken Unknown] pravastatin 20 mg tablet 20 mg PO DAILY 06/20/17 [History Last Taken Unknown] famotidine 40 mg tablet PO 90 days ##90 12/26/17 [History Last Taken Unknown] pravastatin 20 mg tablet PO 90 days ##90 12/26/17 [History Last Taken Unknown] cyclobenzaprine 10 mg tablet 10 mg PO TID 02/07/23 [History Last Taken 02/07/23] Allergy/AdvReac Type Severity Reaction Status Date / Time No Known Allergies Allergy Verified 02/15/22 09:08 Family History Other Heart disease Hypertension Surgical History Hx of AKA (above knee amputation) Social History Smoking Status: Former smoker alcohol intake: current alcohol intake frequency: holidays/special occasions only Vital Signs Vital Signs Vital Signs: 08/08/23 09:46 Temperature 97.5 F L Temperature Source Temporal Pulse Rate 82 Respiratory Rate 18 Blood Pressure 154/84 H Blood Pressure Mean 107 Blood Pressure Source Monitor Blood Pressure Position Semi-Fowlers Blood Pressure Location Left Arm Oxygen Delivery Method Room Air Weight Weight: 196 lb 1.696 oz Body Mass Index (BMI) 29.8 Physical Exam Const alert, oriented x3, no apparent distress and well nourished General Appearance: cooperative, comfortable, well kempt and well developed Orientation / Consciousness: awake, oriented to person, oriented to place and oriented to time HEENT normocephalic, head/scalp atraumatic and hearing grossly normal bilaterally HEENT Narrative: Able to visualize her ear tubes bilaterally. Right tube appears to be shifting out of TM. Head and Scalp: normal to inspection, normocephalic and atraumatic Face and Sinus: normal facial exam External Ear: external ears normal Eyes EOMs intact bilaterally General Eye: normal appearance of both eyes Resp normal respiratory effort, normal air movement, no retractions and no use of accessory muscles Effort and Inspection: able to speak in complete sentences and symmetric chest movement Cardio regular rate and regular rhythm Skin Wound Narrative: A well-healed right above-knee amputation stump is noted. An ulceration persists in the patient's right groin. There is a small amount of bioburden and nonviable tissue present. The ulceration appears to be slightly smaller. Dimensions are documented elsewhere. There is now a satellite ulceration inferior to the main ulceration. The dimensions of this ulceration are noted elsewhere. The ulcerations are generally pink and healthy in appearance, with a small amount of bioburden. Between the 2 ulcerations, there is an area of hypertrophic tissue, which persists. There is no sign of infection or cellulitis at the site of the right groin ulcerations. Neuro oriented x3, CN's II-XII intact bilaterally, moves all extremities and no focal motor deficits Sensorium / Orientation: awake, alert, oriented to person, oriented to place and oriented to time Psych affect normal Appearance: grossly normal, appropriate and well kempt Attitude: calm and engaged Activity / Motor Behavior: appropriate eye contact Speech: normal speech Thought Process: normal thought process Attention / Concentration: attention grossly intact Insight: insight good Debridement Note Debridement Note Wound debrided: Right groin ulcerations, soft tissue radionecrosis Laterality: Right Type of Debridement: Excisional debridement Anesthesia Used: 5% Lidocaine Gel Depth: Down to and including healthy tissue and in the subcutaneous layer Percentage of wound debrided: 100 Instrument Used: 3mm curette Tissue Removed: Bioburden and nonviable tissue Severity: Fat Layer Exposed Amount of bleeding with debridement: Mild Bleeding Controlled with: Compression and gauze Patient tolerated procedure: Patient tolerated procedure well Post-Debridement Measurements and Additional Note: Post-Debridement Measurements/Treatment - Nurse 1 - General Ulcer Assessment Start: 07/11/23 09:19 Freq: Status: Active Protocol: [email or web address].[id number] Activity Type Activity Date Activity User E-sign Co-sign Detail Recorded Client Recorded Date Recorded By Document 07/11/23 09:20 [facility] Desktop 07/11/23 09:27 [facility] Document 07/25/23 09:21 ND Desktop 07/25/23 09:30 ND Document 08/08/23 09:46 KW Desktop 08/08/23 09:54 KW 07/11/23 07/25/23 08/08/23 09:20 09:21 09:46 - Today's Visit Information Type of service Follow-up Visit Follow-up Visit Follow-up 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/BACK END ENGINEER (Physician/BACK END ENGINEER (Physician/BACK END ENGINEER ) ) ) Arrival Mode Ambulatory, Ambulatory Ambulatory Crutches Transfer Assistance None Patient Identification Verified (Name & Yes Yes Yes ) Patient Requires Transmission-Based No Precautions Safety Precautions Fall Prevention Height and Weight Body Mass Index (BMI) 29.8 29.8 29.8 BMI Classification Overweight Overweight Overweight Vital Signs Temperature (97.8 F-99.1 F) 96.7 F L 97.1 F L 97.5 F L Temperature Source Temporal Temporal Temporal Pulse Rate (60-100) 92 86 82 Pulse Location Monitor Monitor Monitor Respiratory Rate (12-18) 16 18 Respiratory rate source Observation Observation Observation Oxygen Delivery Method Room Air Room Air Room Air Blood Pressure (90/60-120/80) 157/79 H 129/78 H 154/84 H Blood Pressure Mean 105 95 107 Source Monitor Monitor Monitor Position Sitting Semi-Fowlers Semi-Fowlers Blood Pressure Location Left Arm Left Arm History Since Last Visit- (Skip if this is Patient's initial visit) Have you changed medications since your No No last visit? Any new allergies or adverse reactions No No Had a fall/change in ADL's that may No No increase risk of falls Signs or symptoms of abuse and/or No No neglect since last visit Have you been in the hospital since your No No last visit? Has dressing in place as prescribed Yes Yes Yes Has compression in place as prescribed N/A N/A N/A Has offloadiing in place as prescribed N/A N/A N/A Experienced any changes in pain level or No No No management Left Footwear Regular Shoe Regular Shoe Right Footwear Regular Shoe No Footwear Pain Scale: 0-10 Numeric Is Patient Pain Free? Yes Yes Yes WC - Nurse 1 - General Ulcer Measurement Start: 07/11/23 09:19 Freq: Status: Active Protocol: Activity Type Activity Date Activity User E-sign Co-sign Detail Recorded Client Recorded Date Recorded By Document 07/11/23 09:20 F Desktop 07/11/23 09:27 [facility] Document 07/25/23 09:21 MT Desktop 07/25/23 09:30 MT Document 08/08/23 09:46 KW Desktop 08/08/23 09:54 KW 07/11/23 07/25/23 08/08/23 09:20 09:21 09:46 Wound Center Nurse 1 #12- R GROIN INFERIOR CLUSTER -Combined with other wound No -Current Size (cm) - Length 1 1.2 0.2 -Current Size (cm) - Width 2.2 0.5 0.3 -Current Size (cm) - Depth 0.2 0.2 0.1 -Total Square Cm 2.2 0.60 0.06 -Date of Last Picture (Recall this 07/11/23 field) -Photo Taken Yes -Epithelialization None Present -Tunneling No -Undermining/Tunneling No -Circular Undermining No -Exudate Amt Medium Medium Small -Exudate Type Serosanguineous Serosanguineous Serosanguineous -Wound Margin Thickened & Distinct, Distinct, Rolled Under Outline Outline Attached Attached -Granulation Amt Large (67-100%) Medium (34-66%) Large (67-100%) -Granulation Quality Red [place] -Slough/Fibrin Yes -Necrosis Amt Small (1-33%) Medium (34-66%) -Necrotic Tissue Type Adherent Slough Adherent Slough -Texture (Blanche-wound Skin Appearance) Assessed, Assessed Assessed, Scarring Scarring -Moisture (Blanche-wound Skin Appearance) Assessed Assessed Assessed -Color (Blanche-wound Skin Appearance) Assessed, Assessed Assessed Erythema -Temperature (Blanche-wound Skin No Abnormality No Abnormality No Abnormality Appearance) (Pt Warm) (Pt Warm) (Pt Warm) -Tenderness on Palpation (Blanche-wound No No Skin Appearance) -Ulcer Cleansing Soap and Water Rinsed/ Rinsed/ Irrigated with Irrigated with Saline Saline -Foul Odor after Cleansing No No No -Anesthetic Used 4% Lidocaine 4% Lidocaine 4% Lidocaine Solution Solution Solution #11 R Groin -Combined with other wound No -Current Size (cm) - Length 1.3 1.5 1.1 -Current Size (cm) - Width 0.7 0.9 0.6 -Current Size (cm) - Depth 0.3 0.3 0.2 -Total Square Cm 0.91 1.35 0.66 -Date of Last Picture (Recall this 07/11/23 field) -Photo Taken Yes -Tunneling No -Undermining/Tunneling No -Exudate Amt Medium Medium Small -Exudate Type Serosanguineous Serosanguineous Serosanguineous -Wound Margin Distinct, Distinct, Distinct, Outline Outline Outline Attached Attached Attached -Granulation Amt Medium (34-66%) Large (67-100%) -Granulation Quality Red [place] -Necrosis Amt Small (1-33%) -Necrotic Tissue Type Adherent Slough -Texture (Blanche-wound Skin Appearance) Assessed, Assessed Assessed, Scarring Scarring -Moisture (Blanche-wound Skin Appearance) Assessed Assessed Assessed -Color (Blanche-wound Skin Appearance) Assessed Assessed Assessed -Temperature (Blanche-wound Skin No Abnormality No Abnormality No Abnormality Appearance) (Pt Warm) (Pt Warm) (Pt Warm) -Tenderness on Palpation (Blanche-wound No No Skin Appearance) -Ulcer Cleansing Rinsed/ Soap and Water Rinsed/ Irrigated with Irrigated with Saline Saline -Foul Odor after Cleansing No -Anesthetic Used 4% Lidocaine 4% Lidocaine 4% Lidocaine Solution Solution Solution Lower Limb Edema Present NA WC - Nurse 2 - General Ulcer CM Notes Start: 07/11/23 09:19 Freq: Status: Active Protocol: Activity Type Activity Date Activity User E-sign Co-sign Detail Recorded Client Recorded Date Recorded By Document 07/11/23 11:22 PL [id number] 07/11/23 11:24 PL Document 07/25/23 11:03 PL [id number] 07/25/23 11:04 PL 07/11/23 07/25/23 11:22 11:03 Wound Center Nurse 2 #12- R GROIN INFERIOR CLUSTER -Time 09:38 -Correct Patient Yes -Correct Side, Site, Position Yes -Correct Procedure Yes -Procedure Performed Yes -Type of Procedure Debridement -Clinical Debridement Subcutaneous -Tissue Removed Subcutaneous -Post Debridement (cm) - Length 1.0 -Post Debridement (cm) - Width 2.2 -Post Debridement (cm) - Depth 0.2 -Total Square (Post) (cm) 2.20 -Area of Debridement (cm) - Length 1.0 -Area of Debridement (cm) - Width 2.2 -Total Square (Area) (cm) 2.20 -Tunneling No -Undermining/Tunneling No -Circular Undermining No -Wound/Ulcer Outcome Not Healed -Ulcer Cleansing Rinsed/ Irrigated with Saline -Foul Odor after Cleansing No -Bioengineered Tissue No -Bleeding Controlled with Pressure -Treatment Response Procedure Tolerated Well -Debridement - Subq, 1st 20sq cm No #11 R Groin -Time 09:38 09:36 -Correct Patient Yes Yes -Correct Side, Site, Position Yes Yes -Correct Procedure Yes Yes -Procedure Performed Yes Yes -Type of Procedure Debridement Debridement -Clinical Debridement Subcutaneous Subcutaneous -Tissue Removed Subcutaneous Subcutaneous -Post Debridement (cm) - Length 1.3 1.5 -Post Debridement (cm) - Width 0.7 0.9 -Post Debridement (cm) - Depth 0.3 0.3 -Total Square (Post) (cm) 0.91 1.35 -Area of Debridement (cm) - Length 1.3 1.5 -Area of Debridement (cm) - Width 0.7 0.9 -Total Square (Area) (cm) 0.91 1.35 -Tunneling No No -Undermining/Tunneling No No -Circular Undermining No No -Wound/Ulcer Outcome Not Healed Not Healed -Ulcer Cleansing Rinsed/ Rinsed/ Irrigated with Irrigated with Saline Saline -Foul Odor after Cleansing No No -Bioengineered Tissue No No -Bleeding Controlled with Pressure Pressure -Treatment Response Procedure Procedure Tolerated Well Tolerated Well -Debridement - Subq, 1st 20sq cm Yes Yes Pain Scale: 0-10 Numeric Is Patient Pain Free? Yes Yes - Nurse 3 - General Ulcer D/C NN Start: 07/11/23 09:19 Freq: Status: Active Protocol: Activity Type Activity Date Activity User E-sign Co-sign Detail Recorded Client Recorded Date Recorded By Document 07/11/23 09:46 [facility] Desktop 07/11/23 09:48 [employer] Document 07/25/23 09:47 [employer] Desktop 07/25/23 09:48 07/11/23 07/25/23 09:46 09:47 Wound Care Center Nurse 3 #12- R GROIN INFERIOR CLUSTER -Ulcer Cleansing Rinsed/ Irrigated with Saline -Foul Odor after Cleansing No -Other Dressing PT WILL APPLY COMPOUND W TO SLOUGH AREA -Primary Dressing Covered/Secured with Dry Gauze, Dry Gauze, Secured with Secured with Tape Tape -Other Covering PT APPLIES OWN DRSG #11 R Groin -Other Dressing PT APPLIES MEDIHONEY; -Primary Dressing Covered/Secured with Dry Gauze, Dry Gauze, Secured with Secured with Tape Tape Treatment Response Procedure Tolerated Well Pain Scale: 0-10 Numeric Is Patient Pain Free? 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 (2) Soft tissue radionecrosis: CODE(S): L59.8 - Other specified disorders of the skin and subcutaneous tissue related to radiation; Y84.2 - Radiological procedure and radiotherapy as the cause of abnormal reaction of the patient, or of later complication, without mention of misadventure at the time of the procedure (3) soft tissue radiation injury: (4) Radiation injury: CODE(S): T66.XXXA - Radiation sickness, unspecified, initial encounter QUALIFIERS: Encounter type: subsequent encounter Qualified Code(s): T66.XXXD - Radiation sickness, unspecified, subsequent encounter (5) History of melanoma: CODE(S): Z85.820 - Personal history of malignant melanoma of skin PLAN: Plan This is a 68-year-old female with a severe soft tissue radiation injury that occurred as result of radiation treatments for malignant melanoma many years ago. A total of 5 EpiFix allografts have been placed in the recent past. Little improvement was noted. More recently, we implemented a Snap VAC. Because of the location in the right groin, an intertriginous zone, subject to perspiration and repetitive motion, the seal of the snap VAC could not be maintained for more than 48 to 72 hours. In some cases, the seal was maintained for only 24 hours. Therefore, it was necessary to transition to alternative treatment modalities. We are to continue the use of Medihoney Gel, which will be applied topically on a daily basis, and the wound packed with gauze. A new satellite ulceration has appeared, which will be treated in the same fashion using Medihoney Gel. Improvement has been noted recently since the implementation of Medihoney Gel, and the primary ulceration has continued to slowly decrease in size. Between the 2 ulcerations in the right groin, there is an area of hypertrophic epidermis, with slough. The patient is to continue using salicylic acid topically on the site, in an effort to minimize its surface area. The salicylic acid is a product which can be obtained [id number]. Thus far, there has been a decrease in the amount of hypertrophic epidermis, resulting from the use of salicylic acid. The lack of significant, progressive healing is thought to be due to the compromised arterial supply as a result of severe soft tissue radionecrosis. Recent culture results have been noted, and appear to be normal skin mare, rather than pathological organisms. The patient is to return in 2 weeks for reassessment. The patient's right groin wound, secondary to soft tissue radionecrosis, has been very slow to heal, despite several different modalities of treatment. Consideration is to be given to the use of hyperbaric oxygen therapy, which is indicated in treatment for soft tissue radionecrosis. HBO therapy has been used in the past, with satisfactory results. We have considered other alternative treatment modalities. Other options under consideration have included referral to a tertiary care center for myocutaneous flap reconstruction of the involved area. However, the described potential complications and needed rehabilitation have given the patient reservations about proceeding with such aggressive management in the past. The patient has recently been seen by her prosthetists, who has made some alterations in her right lower extremity prosthesis. It is hoped that this may reduce the amount of friction to the right upper thigh, and result in enhancement of the patient's wound healing. The patient is to follow-up in 2 weeks for reevaluation. We are to await the patient's insurance decision regarding preauthorization for hyperbaric oxygen therapy. Total time: 24 minutes
== END 2023-08-09 23:59 | disposition home or self-care (01) ==
LOC: WC 09:30
PROVIDERS: PCP Family Medicine; Visit Provider Surgery
DX: L59.8 Other specified disorders of the skin and subcutaneous tissue related to radiation (principal); L97.112 Non-pressure chronic ulcer of right thigh with fat layer exposed; Z87.891 Personal history of nicotine dependence; Z85.820 Personal history of malignant melanoma of skin; T66.XXXD Radiation sickness, unspecified, subsequent encounter; Y84.2 Radiological procedure and radiotherapy as the cause of abnormal reaction of the patient, or of later complication, without mention of misadventure at the time of the procedure
CPT/HCPCS: 11042

== ENCOUNTER 2023-08-22 09:36 | Outpatient (RCR) | payer MEDICARE, OTHER, SELFPAY ==
[2023-08-10 00:27] VITALS: BP 154/84; PULSE 82; RESP 18; TEMP 36.4; BMI 29.8
[2023-08-22 09:36] VITALS: BP 153/74; PULSE 87; RESP 20; TEMP 36.2; BMI 29.8
--- NOTE | 2023-08-22 09:55 | PCM.WC.HP ---
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 The patient was diagnosed with melanoma of the right calf in the 1969's. The melanoma was metastatic to lymph nodes. The patient underwent excision of her melanoma with lymphadenectomy in the right groin. She also underwent lengthy radiation treatments at the [facility] in [place], [place]. Melanoma recurred, and the patient was subsequently treated with monoclonal antibodies in 1984. However, due to the presence of severe radiation injury, persisting open wounds in the right thigh, MRSA infection, and severe radiation injury to the right femoral artery, the patient subsequently required right above-knee amputation in 2002. 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 Treatment included local ulcer care and hyperbaric oxygen therapy. She underwent a total of nearly 90 treatments of hyperbaric oxygen therapy. It is known that she tolerated the therapies well, and derived significant benefit. 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 She has also undergone several more sessions of hyperbaric oxygen therapy. She also received a series of 10 EpiFix allografts in the course of previous treatment. Each of the patient's prior courses of treatment in our facility have been protracted, with difficulties encountered in achieving complete healing. Her most recent course of treatment ended with successful healing and discharge in February 2021. The patient presented at this time with a recurrence of her right groin ulceration, again thought to be secondary to soft tissue radiation injury. The ulceration recurred spontaneously approximately 2-3 weeks prior to her presentation. The patient indicates that her health history has not changed since she was last treated in our facility. 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 injury Soft tissue radionecrosis Home Medications famotidine 20 mg tablet 20 mg PO 06/20/17 [History Last Taken Unknown] pravastatin 20 mg tablet 20 mg PO DAILY 06/20/17 [History Last Taken Unknown] famotidine 40 mg tablet PO 90 days ##90 12/26/17 [History Last Taken Unknown] pravastatin 20 mg tablet PO 90 days ##90 12/26/17 [History Last Taken Unknown] cyclobenzaprine 10 mg tablet 10 mg PO TID 02/07/23 [History Last Taken 02/07/23] Allergy/AdvReac Type Severity Reaction Status Date / Time No Known Allergies Allergy Verified 02/15/22 09:08 Family History Other Heart disease Hypertension Surgical History Hx of AKA (above knee amputation) Social History Smoking Status: Former smoker alcohol intake: current alcohol intake frequency: holidays/special occasions only Vital Signs Vital Signs Vital Signs: 08/22/23 09:36 Temperature 97.2 F L Temperature Source Temporal Pulse Rate 87 Respiratory Rate 20 H Blood Pressure 153/74 H Blood Pressure Mean 100 Blood Pressure Source Monitor Weight Weight: 196 lb 1.696 oz Body Mass Index (BMI) 29.8 Physical Exam Const alert, oriented x3, no apparent distress and well nourished General Appearance: cooperative, comfortable, well kempt and well developed Orientation / Consciousness: awake, oriented to person, oriented to place and oriented to time HEENT normocephalic, head/scalp atraumatic and hearing grossly normal bilaterally HEENT Narrative: Able to visualize her ear tubes bilaterally. Right tube appears to be shifting out of TM. Head and Scalp: normal to inspection, normocephalic and atraumatic Face and Sinus: normal facial exam External Ear: external ears normal Eyes EOMs intact bilaterally General Eye: normal appearance of both eyes Resp normal respiratory effort, normal air movement, no retractions and no use of accessory muscles Effort and Inspection: able to speak in complete sentences and symmetric chest movement Cardio regular rate and regular rhythm Skin Wound Narrative: A well-healed right above-knee amputation stump is noted. An ulceration persists in the patient's right groin. There is a small amount of bioburden and nonviable tissue present. The ulceration appears to be slightly smaller. Dimensions are documented elsewhere. There is now a satellite ulceration inferior to the main ulceration. The dimensions of this ulceration are noted elsewhere, and it is noted that it continues to decrease in size. The ulcerations are generally pink and healthy in appearance, with a small amount of bioburden. Between the 2 ulcerations, there is an area of hypertrophic tissue, which persists. There is no sign of infection or cellulitis at the site of the right groin ulcerations. Neuro oriented x3, CN's II-XII intact bilaterally, moves all extremities and no focal motor deficits Sensorium / Orientation: awake, alert, oriented to person, oriented to place and oriented to time Psych affect normal Appearance: grossly normal, appropriate and well kempt Attitude: calm and engaged Activity / Motor Behavior: appropriate eye contact Speech: normal speech Thought Process: normal thought process Attention / Concentration: attention grossly intact Insight: insight good Debridement Note Debridement Note Wound debrided: Right groin ulcerations, soft tissue radionecrosis Laterality: Right Type of Debridement: Excisional debridement Anesthesia Used: 5% Lidocaine Gel Depth: Down to and including healthy tissue and in the subcutaneous layer Percentage of wound debrided: 100 Instrument Used: 3mm curette Tissue Removed: Bioburden and nonviable tissue Severity: Fat Layer Exposed Amount of bleeding with debridement: Mild Bleeding Controlled with: Compression and gauze Patient tolerated procedure: Patient tolerated procedure well Post-Debridement Measurements and Additional Note: Post-Debridement Measurements/Treatment - Nurse 1 - General Ulcer Assessment Start: 08/22/23 09:36 Freq: Status: Active Protocol: .XOCHITL Activity Type Activity Date Activity User E-sign Co-sign Detail Recorded Client Recorded Date Recorded By Document 08/22/23 09:36 Desktop 08/22/23 09:42 DL 08/22/23 09:36 - Today's Visit Information Type of service Follow-up 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/RECEPTION CLERK ) Arrival Mode Ambulatory Transfer Assistance None Patient Identification Verified (Name & Yes ) Patient Requires Transmission-Based No Precautions Height and Weight Body Mass Index (BMI) 29.8 BMI Classification Overweight Vital Signs Temperature (97.8 F-99.1 F) 97.2 F L Temperature Source Temporal Pulse Rate (60-100) 87 Pulse Location Monitor Respiratory Rate (12-18) 20 H Respiratory rate source Observation Blood Pressure (90/60-120/80) 153/74 H Blood Pressure Mean 100 Source Monitor History Since Last Visit- (Skip if this is Patient's initial visit) Have you changed medications since your No last visit? Any new allergies or adverse reactions No Had a fall/change in ADL's that may No increase risk of falls Signs or symptoms of abuse and/or No neglect since last visit Have you been in the hospital since your No last visit? Has dressing in place as prescribed Yes Has compression in place as prescribed N/A Has offloadiing in place as prescribed Yes Experienced any changes in pain level or No management Pain Scale: 0-10 Numeric Is Patient Pain Free? Yes KISHA - Nurse 1 - General Ulcer Measurement Start: 08/22/23 09:36 Freq: Status: Active Protocol: Activity Type Activity Date Activity User E-sign Co-sign Detail Recorded Client Recorded Date Recorded By Document 08/22/23 09:36 DL Desktop 08/22/23 09:42 DL 08/22/23 09:36 Wound Center Nurse 1 #12- R GROIN INFERIOR CLUSTER -Current Size (cm) - Length 1 -Current Size (cm) - Width 2 -Current Size (cm) - Depth 0.3 -Total Square Cm 2 -Exudate Amt Small -Exudate Type Serosanguineous -Wound Margin Distinct, Outline Attached -Granulation Amt Large (67-100%) -Granulation Quality [place],Red -Texture (Blanche-wound Skin Appearance) Assessed -Moisture (Blanche-wound Skin Appearance) Maceration -Color (Blanche-wound Skin Appearance) Assessed -Temperature (Blanche-wound Skin No Abnormality Appearance) (Pt Warm) -Ulcer Cleansing Rinsed/ Irrigated with Saline -Anesthetic Used 4% Lidocaine Solution #11 R Groin -Current Size (cm) - Length 1 -Current Size (cm) - Width 0.6 -Current Size (cm) - Depth 0.4 -Total Square Cm 0.6 -Granulation Amt Large (67-100%) -Granulation Quality [place] -Texture (Blanche-wound Skin Appearance) Assessed -Moisture (Blanche-wound Skin Appearance) Assessed, Maceration -Color (Blanche-wound Skin Appearance) Assessed -Temperature (Blanche-wound Skin No Abnormality Appearance) (Pt Warm) -Ulcer Cleansing Rinsed/ Irrigated with Saline -Anesthetic Used 4% Lidocaine Solution KISHA Canales Nurse 3 - General Ulcer D/C NN Start: 08/22/23 09:36 Freq: Status: Active Protocol: Activity Type Activity Date Activity User E-sign Co-sign Detail Recorded Client Recorded Date Recorded By Document 08/22/23 09:49 DL Desktop 08/22/23 09:51 DL 08/22/23 09:49 Wound Care Center Nurse 3 #12- R GROIN INFERIOR CLUSTER -Ulcer Cleansing Rinsed/ Irrigated with Saline -Foul Odor after Cleansing No -Other Dressing medihoney -Primary Dressing Covered/Secured with Dry Gauze, Secured with Tape #11 R Groin -Ulcer Cleansing Rinsed/ Irrigated with Saline -Foul Odor after Cleansing No -Other Dressing medihoney -Primary Dressing Covered/Secured with Dry Gauze, Secured with Tape Treatment Response Procedure Tolerated Well Pain Scale: 0-10 Numeric Is Patient Pain Free? 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 (2) Soft tissue radionecrosis: CODE(S): L59.8 - Other specified disorders of the skin and subcutaneous tissue related to radiation; Y84.2 - Radiological procedure and radiotherapy as the cause of abnormal reaction of the patient, or of later complication, without mention of misadventure at the time of the procedure (3) soft tissue radiation injury: (4) Radiation injury: CODE(S): T66.XXXA - Radiation sickness, unspecified, initial encounter QUALIFIERS: Encounter type: subsequent encounter Qualified Code(s): T66.XXXD - Radiation sickness, unspecified, subsequent encounter (5) History of melanoma: CODE(S): Z85.820 - Personal history of malignant melanoma of skin PLAN: Plan This is a 68-year-old female with a severe soft tissue radiation injury that occurred as result of radiation treatments for malignant melanoma many years ago. A total of 5 EpiFix allografts have been placed in the past. Little improvement was noted. More recently, we implemented a Snap VAC. Because of the location in the right groin, an intertriginous zone, subject to perspiration and repetitive motion, the seal of the snap VAC could not be maintained for more than 48 to 72 hours. In some cases, the seal was maintained for only 24 hours. Therefore, it was necessary to transition to alternative treatment modalities. We are to continue the use of Medihoney Gel, which will be applied topically on a daily basis, and the wound packed with gauze. A new satellite ulceration has appeared, which will be treated in the same fashion using Medihoney Gel. Improvement has been noted recently since the implementation of Medihoney Gel, and the primary ulceration has continued to slowly decrease in size. Between the 2 ulcerations in the right groin, there is an area of hypertrophic epidermis, with slough. The patient is to continue using salicylic acid topically on the site, in an effort to minimize its surface area. The salicylic acid is a product which can be obtained [id number]. Thus far, there has been a decrease in the amount of hypertrophic epidermis, resulting from the use of salicylic acid. The lack of significant, progressive healing is thought to be due to the compromised arterial supply as a result of severe soft tissue radionecrosis. Recent culture results have been noted, and appear to be normal skin mare, rather than pathological organisms. The patient is to return in 2 weeks for reassessment. The patient's right groin wound, secondary to soft tissue radionecrosis, has been very slow to heal, despite several different modalities of treatment. Consideration is to be given to the use of hyperbaric oxygen therapy, which is indicated in treatment for soft tissue radionecrosis. HBO therapy has been used in the past, with satisfactory results. We have considered other alternative treatment modalities. Other options under consideration have included referral to a tertiary care center for myocutaneous flap reconstruction of the involved area. However, the described potential complications and needed rehabilitation have given the patient reservations about proceeding with such aggressive management in the past. The patient has recently been seen by her prosthetists, who has made some alterations in her right lower extremity prosthesis. It is hoped that this may reduce the amount of friction to the right upper thigh, and result in enhancement of the patient's wound healing. The patient is to follow-up in 2 weeks for reevaluation. We are to await the patient's insurance decision regarding preauthorization for hyperbaric oxygen therapy. Total time: 22 minutes
== END 2023-09-07 23:59 | disposition home or self-care (01) ==
LOC: WC 09:36
PROVIDERS: PCP Family Medicine; Visit Provider Nurse Practitioner Family
DX: L59.8 Other specified disorders of the skin and subcutaneous tissue related to radiation (principal); L97.112 Non-pressure chronic ulcer of right thigh with fat layer exposed; Z92.3 Personal history of irradiation; T66.XXXD Radiation sickness, unspecified, subsequent encounter; Y84.2 Radiological procedure and radiotherapy as the cause of abnormal reaction of the patient, or of later complication, without mention of misadventure at the time of the procedure; Z87.891 Personal history of nicotine dependence; Z85.820 Personal history of malignant melanoma of skin
CPT/HCPCS: 11042

== ENCOUNTER 2023-09-11 11:26 | Inpatient (IN) | payer MEDICARE, OTHER, SELFPAY ==
[2023-09-11 11:27] VITALS: BP 167/83; PULSE 104; RESP 20; TEMP 37.2; O2SAT 97; BMI 29.1
--- NOTE | 2023-09-11 12:15 | EDS_ITS ---
HPI History of Present Illness Chief Complaint: Cellulitis Narrative Narrative: Patient presenting today with concerns for cellulitis to her right lower extremity. 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 Patient has a history of melanoma to her right calf that occurred in the 1970s, this was metastatic to the lymph nodes. She required excision of the melanoma and lymphadenectomy to the right groin as well as lengthy radiation treatments. The cancer ultimately recurred and she had to receive a BKA in 2002. She has noticed redness to her right distal thigh over the past week. She reports that over the past several weeks she has had intermittent low-grade fevers, she last had a temperature of 100 ?F last night. She saw the wound care center this morning for a follow-up appointment regarding her right groin ulceration and they encouraged her to come in to the ED due to the cellulitis. PMH includes BKA from melanoma, GERD, and hyperlipidemia. 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 Radiation injury Soft tissue radionecrosis Home Medications famotidine 20 mg tablet 20 mg PO 06/20/17 [History Last Taken Unknown] pravastatin 20 mg tablet 20 mg PO DAILY 06/20/17 [History Last Taken Unknown] famotidine 40 mg tablet PO 90 days ##90 12/26/17 [History Last Taken Unknown] pravastatin 20 mg tablet PO 90 days ##90 12/26/17 [History Last Taken Unknown] cyclobenzaprine 10 mg tablet 10 mg PO TID 02/07/23 [History Last Taken 02/07/23] Allergy/AdvReac Type Severity Reaction Status Date / Time No Known Allergies Allergy Verified 09/11/23 11:27 Family History Other Heart disease Hypertension Surgical History Hx of AKA (above knee amputation) Social History Smoking Status: Former smoker alcohol intake: current alcohol intake frequency: holidays/special occasions only ROS ROS ED Constitutional Constitutional ED: Reports chills and fever(s) Cardiovascular Cardiovascular: Denies chest pain Respiratory/Chest Respiratory/Chest: Denies cough or dyspnea Gastrointestinal Gastrointestinal: Denies abdominal pain, nausea or vomiting Musculoskeletal Musculoskeletal: Denies arthralgias or myalgias Integumentary Reports other Details: Chronic ulceration right groin Neurologic Neurologic: Denies weakness EXAM Physical Exam Const Vital Signs: 09/11/23 11:27 Temperature 99 F Temperature Source Temporal Pulse Rate 104 H Respiratory Rate 20 H Blood Pressure 167/83 H Blood Pressure Mean 111 Pulse Ox 97 Oxygen Delivery Method Room Air Discharge Plan Triage Chief Complaint: Cellulitis ED Midlevel Provider: Hanane Marie ED Provider: Shay Francois
--- NOTE | 2023-09-11 12:15 | EX.ED.DYSGE1 ---
HPI <AMANDA Cherry - Last Filed: 09/11/23 15:14> History of Present Illness Chief Complaint: Cellulitis Narrative Narrative: Patient presenting today with concerns for cellulitis to her right lower extremity. 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 Patient has a history of melanoma to her right calf that occurred in the 1970s, this was metastatic to the lymph nodes. She required excision of the melanoma and lymphadenectomy to the right groin as well as lengthy radiation treatments. The cancer ultimately recurred and she had to receive a BKA in 2002. She has noticed redness to her right distal thigh over the past week. She reports that over the past several weeks she has had intermittent low-grade fevers, she last had a temperature of 100 ?F last night. She saw the wound care center this morning for a follow-up appointment regarding her right groin ulceration and they encouraged her to come in to the ED due to the cellulitis. PMH includes BKA from melanoma, GERD, and hyperlipidemia. 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 Radiation injury Soft tissue radionecrosis Home Medications famotidine 20 mg tablet 20 mg PO QHS 06/20/17 [History Last Taken Unknown] pravastatin 20 mg tablet 20 mg PO QHS 90 days ##90 12/26/17 [History Last Taken Unknown] acetaminophen 650 mg tablet,extended release (8 Hour Pain Reliever) 1,300 mg PO Q8H PRN pain 09/11/23 [History Last Taken Unknown] calcium carbonate 600 mg calcium (1,500 mg) tablet (Calcium) 1,200 mg PO DAILY 09/11/23 [History Last Taken Unknown] cholecalciferol (vitamin D3) 50 mcg (2,000 unit) tablet (Vitamin D3) 2,000 unit PO DAILY 09/11/23 [History Last Taken Unknown] Allergy/AdvReac Type Severity Reaction Status Date / Time No Known Allergies Allergy Verified 09/11/23 11:27 Family History Other Heart disease Hypertension Surgical History Hx of AKA (above knee amputation) Social History Smoking Status: Former smoker alcohol intake: current alcohol intake frequency: holidays/special occasions only ROS <AMANDA Cherry - Last Filed: 09/11/23 15:14> ROS ED Constitutional Constitutional ED: Reports chills and fever(s) Cardiovascular Cardiovascular: Denies chest pain Respiratory/Chest Respiratory/Chest: Denies cough or dyspnea Gastrointestinal Gastrointestinal: Denies abdominal pain, nausea or vomiting Musculoskeletal Musculoskeletal: Denies arthralgias or myalgias Integumentary Reports other Details: Chronic ulceration right groin Neurologic Neurologic: Denies weakness EXAM <AMANDA Cherry - Last Filed: 09/11/23 15:14> Physical Exam Const Vital Signs: 09/11/23 11:27 09/11/23 14:38 09/11/23 14:39 Temperature 99 F 98.5 F 98.5 F Temperature Source Temporal Oral Pulse Rate 104 H 91 91 Respiratory Rate 20 H 18 18 Blood Pressure 167/83 H 153/76 H 153/76 H Blood Pressure Mean 111 101 101 Pulse Ox 97 98 98 Oxygen Delivery Method Room Air Room Air 09/11/23 14:40 Temperature 98.5 F Temperature Source Oral Pulse Rate 91 Respiratory Rate 18 Blood Pressure 153/76 H Blood Pressure Mean 101 Pulse Ox 98 Oxygen Delivery Method Room Air Positive well nourished, well developed and no apparent distress General Appearance ED: well developed HEENT Reports normocephalic and head/scalp atraumatic Mouth ED: Yes moist mucous membranes normal Eyes PERRL and EOMs intact bilaterally Neck full ROM and supple Chest Wall inspection of chest normal Resp normal respiratory effort and clear to auscultation bilaterally Cardio regular rate and regular rhythm GI soft to palpation, non-tender, non-distended and no masses Back/Spine normal ROM and normal to inspection Extremity Extremity Narrative: Erythema and warmth to the distal aspect of her right thigh, chronic ulcerative wound to the right groin Neuro oriented x3, CN's II-XII intact bilaterally, moves all extremities, no focal motor deficits and no sensory deficits noted Sensorium / Orientation: awake and alert Psych mental status grossly normal and thought process normal <Dr. Shay Francois MD - Last Filed: 09/11/23 15:12> Physical Exam Const Vital Signs: 09/11/23 11:27 09/11/23 14:38 09/11/23 14:39 Temperature 99 F 98.5 F 98.5 F Temperature Source Temporal Oral Pulse Rate 104 H 91 91 Respiratory Rate 20 H 18 18 Blood Pressure 167/83 H 153/76 H 153/76 H Blood Pressure Mean 111 101 101 Pulse Ox 97 98 98 Oxygen Delivery Method Room Air Room Air 09/11/23 14:40 Temperature 98.5 F Temperature Source Oral Pulse Rate 91 Respiratory Rate 18 Blood Pressure 153/76 H Blood Pressure Mean 101 Pulse Ox 98 Oxygen Delivery Method Room Air MDM <AMANDA Cherry - Last Filed: 09/11/23 15:14> MDM MDM Narrative Medical decision making narrative: Patient presenting due to cellulitis to her right lower extremity. She is nontoxic-appearing and in no acute distress. She has extensive history of melanoma that required right BKA. She follows with the wound care center due to a chronic right inguinal ulceration. Labs were obtained, she was given Unasyn, blood cultures obtained. Hospitalist recommended obtaining CT scan to rule out abscess, this was obtained and is negative. She will be admitted for IV antibiotics and is comfortable with plan. I have personally performed a face to face assessment of the patient and have reviewed the HORACIO Note. I performed a substantive portion of the visit including all aspects of the following. My white findings include: History is remarkable for cellulitis of right AKA stump. Patient been seen in the wound center. Tressa the wound center nurse called to the ER before sending patient. She is concerned that she would require admission and need IV antibiotics. She does report fever and chills. She denies drainage from the wound. Reason for amputation was melanoma. She had a complicated course. Exam is remarkable for sinus tachycardia. She is also hypertensive. She is not febrile or hypoxic. She is a pleasant woman. Her right AKA stump is infected with cellulitis. There is a wound in the right inguinal area. There is no inguinal lymphadenopathy. There is no purulent drainage. Heart is rapid and regular. There is no murmur, gallop or rub. Lungs are clear to auscultation. Medical Decision Making workup for sepsis was started. Since there is no concern for abscess or pustules she was treated with Unasyn per sepsis order set. The hospitalist requested a CT of the stump area to determine if there is an abscess. If there is an abscess since we do not have plastics available that she would require transfer. Patient CT reveals no evidence of abscess. Therefore she was admitted to [facility]. Other additions or changes: [None] Lab Data Attestation: I reviewed the patient's lab results. Labs: Laboratory Results - last 24 hr 09/11/23 12:20 WBC 7.7 RBC 4.60 Hgb 13.0 Hct 39.9 MCV 86.7 MCH 28.3 MCHC 32.6 RDW Std Deviation 41.1 RDW Coeff of Criselda 13.2 Plt Count 212 MPV 9.3 Immature Gran % (Auto) 0.400 Neut % (Auto) 78.2 H Lymph % (Auto) 12.3 L Delta % (Auto) 8.3 Eos % (Auto) 0.5 Baso % (Auto) 0.3 Absolute Neuts (auto) 6.1 Absolute Lymphs (auto) 0.95 Nucleated RBC % 0 Sodium 137 Potassium 3.8 Chloride 107 Carbon Dioxide 26.0 Anion Gap 4 L BUN 11 Creatinine 0.51 L Estim Creat Clear Calc 75.18 Est GFR (MDRD) Af Amer 153 Est GFR (MDRD) Non-Af 127 BUN/Creatinine Ratio 21.5 H Glucose 115 H Calcium 9.8 Radiography Diagnostic Testing: Clinical Impression(s) from Imaging Studies Pelvis CT 09/11/23 13:34 IMPRESSION: 1. Mild soft tissue swelling and edema of the medial aspect of the right groin with possible adjacent soft tissue ulceration. No evidence of drainable abscess. 2. Partially visualized soft tissue swelling and edema about the visualized mid right thigh is not entirely excluded on this exam. 3. Small right inguinal hernia containing fat. Electronically Signed: Tab Gunn MD at 14:50 EST , <Dr. Shay Francois MD - Last Filed: 09/11/23 15:12> [facility] MDM Narrative Medical decision making narrative: I have personally performed a face to face assessment of the patient and have reviewed the HORACIO Note. I performed a substantive portion of the visit including all aspects of the following. My white findings include: History is remarkable for cellulitis of right AKA stump. Patient been seen in the wound center. Tressa the wound center nurse called to the ER before sending patient. She is concerned that she would require admission and need IV antibiotics. She does report fever and chills. She denies drainage from the wound. Reason for amputation was melanoma. She had a complicated course. Exam is remarkable for sinus tachycardia. She is also hypertensive. She is not febrile or hypoxic. She is a pleasant woman. Her right AKA stump is infected with cellulitis. There is a wound in the right inguinal area. There is no inguinal lymphadenopathy. There is no purulent drainage. Heart is rapid and regular. There is no murmur, gallop or rub. Lungs are clear to auscultation. Medical Decision Making workup for sepsis was started. Since there is no concern for abscess or pustules she was treated with Unasyn per sepsis order set. The hospitalist requested a CT of the stump area to determine if there is an abscess. If there is an abscess since we do not have plastics available that she would require transfer. Patient CT reveals no evidence of abscess. Therefore she was admitted to [facility]. Other additions or changes: [None] Lab Data Labs: Laboratory Results - last 24 hr 09/11/23 12:20 WBC 7.7 RBC 4.60 Hgb 13.0 Hct 39.9 MCV 86.7 MCH 28.3 MCHC 32.6 RDW Std Deviation 41.1 RDW Coeff of Criselda 13.2 Plt Count 212 MPV 9.3 Immature Gran % (Auto) 0.400 Neut % (Auto) 78.2 H Lymph % (Auto) 12.3 L Delta % (Auto) 8.3 Eos % (Auto) 0.5 Baso % (Auto) 0.3 Absolute Neuts (auto) 6.1 Absolute Lymphs (auto) 0.95 Nucleated RBC % 0 Sodium 137 Potassium 3.8 Chloride 107 Carbon Dioxide 26.0 Anion Gap 4 L BUN 11 Creatinine 0.51 L Estim Creat Clear Calc 75.18 Est GFR (MDRD) Af Amer 153 Est GFR (MDRD) Non-Af 127 BUN/Creatinine Ratio 21.5 H Glucose 115 H Calcium 9.8 Radiography Diagnostic Testing: Clinical Impression(s) from Imaging Studies Pelvis CT 09/11/23 13:34 IMPRESSION: 1. Mild soft tissue swelling and edema of the medial aspect of the right groin with possible adjacent soft tissue ulceration. No evidence of drainable abscess. 2. Partially visualized soft tissue swelling and edema about the visualized mid right thigh is not entirely excluded on this exam. 3. Small right inguinal hernia containing fat. Electronically Signed: Tab Gunn MD at 14:50 EST , Discharge Plan Dx/Rx/DC Orders Clinical Impression: Cellulitis of right thigh, soft tissue radiation injury, Soft tissue radionecrosis, Amputee, above knee, Hyperlipidemia, History of melanoma Disposition Disposition: Acute Care Hospital [facility]
--- OUTSIDE RECORDS SUMMARY | 2023-09-11 12:43 | XMS RPT_ITS | CCD ---
Author Name Unknown Address [address] [place] [address] Organization [facility] Care Team Providers Care Buying Agent Name Role Phone Taylor Cruz Unavailable Taylor Cruz Attending Unavailable Tourlas, Victorino Primary Care Unavailabl e Taylor Cruz Admitting Unavailable ThomIvan rileye R Attending Unavailable Taylor Cruz Referring Unavailable Tourlas, Victorino Primary Care Unavailabl e Thomae German R Admitting Unavailable AnthonyTaylor Attending Unavailable Tourlas, Victorino Primary Care Unavailabl e Anthony Taylor Admitting Unavailable Klondike, Caron D Admitting Unavailable Klondike, Caron D Attending Unavailable Tourlas, Victorino Primary Care Unavailabl e Klondike, Caron D Admitting Unavailable Jenifer, Caron D Attending Unavailable Tourlas, Victorino Primary Care Unavailabl e Anthony Taylor Admitting Unavailable AnthonyTaylor madison Attending Unavailable Tourlas, Victorino Primary Care Unavailabl e Taylor Cruz Primary Care Provider Taylor Cruz Primary Care Provider TAYLOR CRUZ Primary Care Unavailable JOSEPH SMITH Referring Unavailable JOSEPH SMITH Admitting Unavailable JOSEPH SMITH Attending Unavailable JOSEPH SMITH Admitting Unavailable TAYLOR CRUZ Primary Care Unavailable Taylor Cruz L Unavailable Unavailable Unavailable Taylor Cruz MD Primary Care Provider Taylor Cruz MD Primary Care Provider ANTHONY, TAYLOR CISCO Primary Care Unavailable DENICE JR., DANE Attending Unavailable ANTHONY, TAYLOR CISCO Primary Care Unavailable JOSEPH SMITH Attending Unavailable DENICE JR., DANE Attending Unavailable ANTHONY, TAYLOR CISCO Primary Care Unavailable ANTHONY, TAYLOR CISCO Primary Care Unavailable DENICE JR., DANE Attending Unavailable ANTHONY, TAYLOR CISCO Primary Care Unavailable DENICE JR., DANE Attending Unavailable ANTHONY, TAYLOR CISCO Primary Care Unavailable ANTHONYTAYLOR MADISON Attending Unavailable TAYLOR CRUZ Referring Unavailable TAYLOR CRUZ Attending Unavailable ANTHONY, TAYLOR PECK Referring Unavailable ANTHONY, TAYLOR CISCO Primary Care Unavailable Neftaly Miranda Attending Unavailable Neftaly Miranda Referring Unavailable ANTHONY, TAYLOR CISCO Primary Care Unavailable Neftaly Miranda Attending Unavailable Neftaly Miranda Referring Unavailable ANTHONY, TAYLOR CISCO Primary Care Unavailable [facility] [place] [facility] Referring Unavailabl e Neftaly Miranda Attending Unavailable ANTHONY, TAYLOR CISCO Primary Care Unavailable ANTHONY, TAYLOR CISCO Primary Care Unavailable STENTZ, Mr. MAGALLANES Attending Unavailable STENTZ, Mr. MAGALLANES Referring Unavailable TAYLOR CRUZ Attending Unavailable ANTHONYTAYLOR Referring Unavailable ANTHONY, TAYLOR CISCO Primary Care Unavailable Taylor Cruz MD Primary Care Provider YOANDY TORRE Referring Unavailable ANTHONY, TAYLOR Tank Primary Care Unavailable Taylor Cruz MD Primary Care Provider Taylor Cruz MD Unavailable [phone] Taylor Cruz Referring Unavailab le Anthony, Dr. Taylor Peck Attending Unavailab le Anthony, Dr. Taylor Peck Primary Care Unavailab le TAYLOR CRUZ Attending Unavailable ANTHONY, TAYLOR L Primary Care Unavailable ANTHONYTAYLOR Attending Unavailable ANTHONY, TAYLOR L Primary Care Unavailable ANTHONYTAYLOR Attending Unavailable ANTHONY, TAYLOR L Primary Care Unavailable ANTHONY, TAYLOR L Primary Care Unavailable ANTHONY, TAYLOR L Primary Care Unavailable ANTHONY TAYLOR L Referring Unavailable ANTHONY, TAYLOR L Primary Care Unavailable ANTHONYTAYLOR L Referring Unavailable ANTHONY, TAYLOR L Primary Care Unavailable Allergies Allergy Classification Reported Allergen(s) Allergy Type Date of Onset Reaction(s) Facility Opioid Agonists (4 sources) Propoxyphene; Translations: [Darvon] Drug Allergy 9 Anxiety, GI Intolerance [facility] venlafaxine (3 sources) venlafaxine; Translations: [Effexor] Drug Allergy 9 GI Intolerance [facility] (20 sources) Morphine; Translations: [morphine] Drug Allergy 1 Anxiety [facility] Rep[facility] (20 sources) Propoxyphene; Translations: [Darvon] Drug Allergy [facility] (20 sources) venlafaxine; Translations: [Effexor] Drug Allergy Vomiting [facility] (20 sources) Propoxyphene; Translations: [PROPOXYPHENE] Drug Allergy 9 GI Intolerance, Other, GI Upset, Nausea And Vomiting [facility] (20 sources) venlafaxine; Translations: [VENLAFAXINE] Drug Allergy 9 GI Intolerance, Other, GI Upset, Nausea And Vomiting [facility] Medications Current Medications Medication Drug Class(es) Dates Sig (Normalized) Sig (Original) CALCIUM CITRATE-VITAMIN D3 ORAL (5 sources) CALCIUM CITRATE-VITAMIN D3 ORAL Take by mouth. 0 Active celecoxib 100 mg oral capsule (20 sources) Nonsteroidal Anti-inflammatory Drug Start: 07-11-2023 End: 07-10-2024 take 1 capsule by mouth once daily as needed for pain celecoxib (CeleBREX) 100 mg capsule Indications: osteoarthritis Take 1 capsule (100 mg) by mouth once daily as needed for mild pain (1 - 3). 30 capsule 2 07/11/2023 07/10/2024 Active Completed/Discontinued Medications Medication Drug Class(es) Dates Sig (Normalized) Sig (Original) Calcium (19 sources) Phosphate Binder, Calcium Calcium + D TABS Quantity: 0 Refills: 0 Ordered: 26-May-2021 DO Active cloNIDine hydrochloride 0.1 mg oral tablet (2 sources) Central alpha-2 Adrenergic Agonist Start: 04-19-2015 End: 02-15-2018 take 1 tablet by mouth once daily cloNIDine HCl (CATAPRES) 0.1 MG tablet Take 0.1 mg by mouth daily 3 04/19/2015 02/15/2018 Discontinued Disability Placard (20 sources) Start: 07-18-2019 Disability Placard new requisition for 5 years Quantity: 1 Refills: 0 Ordered: 18-Jul-2019 Taylor Cruz MD Start : 18-Jul-2019 Active gabapentin (10 sources) Anti-epileptic Agent End: 01-04-2021 gabapentin (NEURONTIN ORAL) Take by mouth. 0 01/04/2021 Discontinued (Discontinued by another clinician) Problems Active Problems Problem Classification Problem Date Documented Date Episodic/Chronic Disorders of lipid metabolism (20 sources) Hypercholesterolemia; Translations: [Pure hypercholesterolemia] Onset: 12-29-2022 12-29-2022 Chronic Esophageal disorders (20 sources) Gastroesophageal reflux disease; Translations: [Esophageal reflux] Chronic Immunizations and screening for infectious disease (20 sources) Contact with and (suspected) exposure to other viral communicable diseases; Translations: [Patient encounter status] Episodic Open wounds of extremities (9 sources) Amputated right lower limb above knee; Translations: [Complete traumatic amputation at level between right hip and knee, initial encounter] Onset: 12-29-2022 12-29-2022 Chronic Open wounds of head; neck; and trunk (4 sources) Wound of abdomen; Translations: [Posttraumatic wound infection not elsewhere classified] Episodic Osteoarthritis (20 sources) Osteoarthritis of knee; Translations: [Unilateral primary osteoarthritis, left knee] Onset: 05-06-2016 05-06-2016 Chronic Other and unspecified benign neoplasm (20 sources) Polyp of colon; Translations: [Benign neoplasm of colon] Episodic Other bone disease and musculoskeletal deformities (20 sources) Absence of lower limb; 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] Chronic Other connective tissue disease (20 sources) Finding of limb structure; Translations: [Limb replaced by other means] Chronic Other connective tissue disease (1 source) Triceps tendinitis; Translations: [Other enthesopathies, not elsewhere classified] 02-21-2023 Episodic Other connective tissue disease (8 sources) Trigger thumb of right hand; Translations: [Trigger thumb of right hand] Onset: 08-12-2020 08-12-2020 Other non-traumatic joint disorders (1 source) Pain in elbow Episodic Other non-traumatic joint disorders (14 sources) Pain in left knee; Translations: [Left knee pain, unspecified chronicity] Episodic Other non-traumatic joint disorders (1 source) Hip pain; Translations: [Pain in left hip] Episodic Other non-traumatic joint disorders (1 source) Pain in right hip joint; Translations: [Pain in right hip] Episodic Other nutritional; endocrine; and metabolic disorders (20 sources) Obesity; Translations: [Obesity, unspecified] Chronic Other screening for suspected conditions (not mental disorders or infectious disease) (20 sources) Patient encounter status; Translations: [Other screening mammogram] Onset: 07-05-2022 Episodic Other skin disorders (4 sources) [place] - lesion ; Translations: [Corns and callosities] Episodic Peripheral and visceral atherosclerosis (6 sources) Peripheral vascular disease; Translations: [Peripheral vascular disease, unspecified] Onset: 08-06-2021 Chronic Residual codes; unclassified (20 sources) Menopause present; Translations: [Symptomatic menopausal or female climacteric states] 07-05-2023 Episodic Residual codes; unclassified (4 sources) Asymptomatic menopausal state; Translations: [Asymptomatic menopausal state] Onset: 07-05-2023 Episodic Spondylosis; intervertebral disc disorders; other back problems (16 sources) Low back pain; Translations: [Lumbago] Episodic Unclassified (10 sources) Primary osteoarthritis of left knee; Translations: [Primary osteoarthritis of left knee] Onset: 05-06-2016 05-06-2016 Unclassified (2 sources) Nail Care Onset: 04-13-2022 Unclassified (1 source) Low back pain, unspecified; Translations: [Low back pain, unspecified] Onset: 11-04-2022 Past or Other Problems Problem Classification Problem Date Documented Da te Episodic/Chronic Mycoses (6 sources) Onychomycosis; Translations: [Tinea unguium] Onset: 08-06-2021 Episodic Other connective tissue disease (6 sources) Trigger thumb of right hand; Translations: [Trigger thumb, right thumb] Onset: 08-12-2020 08-12-2020 Episodic Other connective tissue disease (2 sources) Other enthesopathies, not elsewhere classified; Translations: [Other enthesopathies, not elsewhere classified] Onset: 02-21-2023 Episodic Other skin disorders (2 sources) Corns and callosities; Translations: [Corns and callosities] Onset: 08-06-2021 Episodic Unclassified (6 sources) Onset: 12-29-2022 12-29-2022 Results Test Name Value Interpretation Reference Range Facil ity Vital Signs Date Time Vital Sign Value Performing Clinician Facility 07-05-2023 09:31-0500 Body mass index (BMI) [Ratio] 29.23 kg/m2 Taylor Cruz MD Work Phone: [facility] 07-05-2023 09:31-0500 Body temperature 98.4 [degF] Taylor Cruz MD Work Phone: [facility] 07-05-2023 09:31-0500 Body weight 84.64 kg Taylor Cruz MD Work Phone: [facility] 07-05-2023 09:31-0500 Diastolic blood pressure 82 mm[Hg] Taylor Cruz MD Work Phone: [facility] 07-05-2023 09:31-0500 Heart rate 88 /min Taylor Cruz MD Work Phone: [facility] 07-05-2023 09:31-0500 SaO2% (BldA) [Mass fraction] 97 % Taylor Cruz MD Work Phone: [facility] 07-05-2023 09:31-0500 Systolic blood pressure 136 mm[Hg] Taylor Cruz MD Work Phone: [facility] 02-21-2023 12:52-0400 Body height 170.2 cm Taylor Cruz MD Work Phone: [facility] 02-21-2023 12:52-0400 Body mass index (BMI) [Ratio] 29.43 kg/m2 Taylor Cruz MD Work Phone: [facility] 02-21-2023 12:52-0400 Body weight 85.23 kg Taylor Cruz MD Work Phone: [facility] 02-21-2023 12:52-0400 Diastolic blood pressure 80 mm[Hg] Taylor Cruz MD Work Phone: [facility] 02-21-2023 12:52-0400 Heart rate 86 /min Taylor Cruz MD Work Phone: [facility] 02-21-2023 12:52-0400 SaO2% (BldA) [Mass fraction] 98 % Taylor Cruz MD Work Phone: [facility] 02-21-2023 12:52-0400 Systolic blood pressure 130 mm[Hg] Taylor Cruz MD Work Phone: [facility] 12-29-2022 09:48-0400 Body height 170.2 cm Taylor Cruz MD Work Phone: [facility] 12-29-2022 09:48-0400 Body mass index (BMI) [Ratio] 30.87 kg/m2 Taylor Cruz MD Work Phone: [facility] 12-29-2022 09:48-0400 Body weight 89.4 kg Taylor Cruz MD Work Phone: [facility] 12-29-2022 09:48-0400 Diastolic blood pressure 80 mm[Hg] Taylor Cruz MD Work Phone: [facility] 12-29-2022 09:48-0400 Heart rate 81 /min Taylor Cruz MD Work Phone: [facility] 12-29-2022 09:48-0400 SaO2% (BldA) [Mass fraction] 98 % Taylor Cruz MD Work Phone: [facility] 12-29-2022 09:48-0400 Systolic blood pressure 118 mm[Hg] Taylor Cruz MD Work Phone: [facility] 06-13-2022 14:29-0500 Body height 170.18 cm Taylor Cruz Work Phone: [facility] Work Phone: 06-13-2022 14:29-0500 Body mass index (BMI) [Ratio] 30.7 kg/m2 Taylor Cruz Work Phone: [facility] Work Phone: 06-13-2022 14:29-0500 Body surface area Derived from formula 2 m2 Taylor L Anthony Work Phone: [facility] Work Phone: 06-13-2022 14:29-0500 Body weight 88.9 kg Taylor L Anthony Work Phone: [facility] Work Phone: 06-13-2022 14:29-0500 Diastolic blood pressure 80 mm[Hg] Taylor L Anthony Work Phone: [facility] Work Phone: 06-13-2022 14:29-0500 Heart rate 88 /min Taylor L Anthony Work Phone: [facility] Work Phone: 06-13-2022 14:29-0500 Systolic blood pressure 130 mm[Hg] Taylor L Anthony Work Phone: [facility] Work Phone: 02-04-2022 14:15-0400 Body temperature 98.4 [degF] Dane Morillo Jr., DPM Work Phone: [facility] 02-04-2022 14:15-0400 Diastolic blood pressure 79 mm[Hg] Dane Morillo Jr., DPM Work Phone: [facility] 02-04-2022 14:15-0400 Heart rate 81 /min Dane Morillo Jr., DPM Work Phone: [facility] 02-04-2022 14:15-0400 Systolic blood pressure 123 mm[Hg] Dane Morillo Jr., DPM Work Phone: [facility] 02-03-2022 13:32-0400 Body height 170.18 cm Taylor L Anthony Work Phone: [facility] Work Phone: 02-03-2022 13:32-0400 Body mass index (BMI) [Ratio] 30.85 kg/m2 Tayolr L Anthony Work Phone: [facility] Work Phone: 02-03-2022 13:32-0400 Body surface area Derived from formula 2.01 m2 Taylor L Anthony Work Phone: [facility] Work Phone: 02-03-2022 13:32-0400 Body weight 89.35 kg Taylor L Anthony Work Phone: [facility] Work Phone: 02-03-2022 13:32-0400 Diastolic blood pressure 80 mm[Hg] Taylor L Anthony Work Phone: [facility] Work Phone: 02-03-2022 13:32-0400 Heart rate 80 /min Taylor L Anthony Work Phone: [facility] Work Phone: 02-03-2022 13:32-0400 Systolic blood pressure 138 mm[Hg] Taylor L Anthony Work Phone: [facility] Work Phone: 01-18-2022 14:04-0400 Body height 170.18 cm Taylor L Anthony Work Phone: [facility] [address] Work Phone: 01-18-2022 14:04-0400 Body mass index (BMI) [Ratio] 30.87 kg/m2 Taylor L Anthony Work Phone: [facility] Work Phone: 01-18-2022 14:04-0400 Body surface area Derived from formula 2.01 m2 Taylor L Anthony Work Phone: [facility] pending [facility] to [facility] [address] Work Phone: 01-18-2022 14:04-0400 Body temperature 97.5 [degF] Taylor L Anthony Work Phone: [facility] [address] Work Phone: 01-18-2022 14:04-0400 Body weight 89.42 kg Atylor L Anthony Work Phone: [facility] Work Phone: 12-01-2021 10:52-0400 Body height 170.18 cm Taylor L Anthony Work Phone: [facility] Work Phone: 12-01-2021 10:52-0400 Body mass index (BMI) [Ratio] 31.1 kg/m2 Taylor L Anthony Work Phone: [facility] Work Phone: 12-01-2021 10:52-0400 Body surface area Derived from formula 2.02 m2 Taylor L Anthony Work Phone: [facility] Work Phone: 12-01-2021 10:52-0400 Body weight 90.07 kg Taylor L Anthony Work Phone: [facility] Work Phone: 12-01-2021 10:52-0400 Diastolic blood pressure 100 mm[Hg] Taylor L Anthony Work Phone: [facility] Work Phone: 12-01-2021 10:52-0400 Systolic blood pressure 144 mm[Hg] Taylor L Anthony Work Phone: [facility] Work Phone: 11-05-2021 15:09-0400 Diastolic blood pressure 78 mm[Hg] Dane Morillo Jr., DP Work Phone: [facility] 11-05-2021 15:09-0400 Heart rate 84 /min Dane Morillo , DPM Work Phone: [facility] 11-05-2021 15:09-0400 Systolic blood pressure 121 mm[Hg] Dane Morillo JrAlissa, DPM Work Phone: [facility] 11-05-2021 15:06-0400 Body temperature 98.29 [degF] Dane Morillo JrAlissa, DPM Work Phone: [facility] 10-12-2021 10:11-0400 Body height 170.18 cm Taylor L Anthony Work Phone: [facility] [address] Work Phone: 10-12-2021 10:11-0400 Body mass index (BMI) [Ratio] 31.19 kg/m2 Taylor L Anthony Work Phone: [facility] [address] Work Phone: 10-12-2021 10:11-0400 Body surface area Derived from formula 2.02 m2 Taylor L Anthony Work Phone: [facility] [address] Work Phone: 10-12-2021 10:11-0400 Body temperature 96.9 [degF] Taylor L Anthony Work Phone: [facility] [address] Work Phone: 10-12-2021 10:11-0400 Body weight 90.33 kg Taylor L Anthony Work Phone: [facility] [address] Work Phone: 08-17-2021 10:37-0500 Body height 170.18 cm Taylor L Anthony Work Phone: [facility] Work Phone: 08-17-2021 10:37-0500 Body mass index (BMI) [Ratio] 30.85 kg/m2 Taylor L Anthony Work Phone: [facility] Work Phone: 08-17-2021 10:37-0500 Body surface area Derived from formula 2.01 m2 Taylor L Anthony Work Phone: [facility] Work Phone: 08-17-2021 10:37-0500 Body weight 89.36 kg Taylor L Anthony Work Phone: [facility] Work Phone: 08-17-2021 10:37-0500 Diastolic blood pressure 90 mm[Hg] Taylor L Anthony Work Phone: [facility] Work Phone: 08-17-2021 10:37-0500 Heart rate 89 /min Taylor L Anthony Work Phone: [facility] Work Phone: 08-17-2021 10:37-0500 Systolic blood pressure 128 mm[Hg] Taylor L Anthony Work Phone: [facility] Work Phone: 08-06-2021 09:50-0500 Body temperature 98.2 [degF] Dane Morillo Jr., DPM Work Phone: [facility] 08-06-2021 09:50-0500 Diastolic blood pressure 77 mm[Hg] Dane Morillo Jr., DPM Work Phone: [facility] 08-06-2021 09:50-0500 Heart rate 84 /min Dane Moirllo Jr., DPM Work Phone: [facility] 08-06-2021 09:50-0500 Systolic blood pressure 127 mm[Hg] Dane Morillo Jr., DPM Work Phone: [facility] 05-26-2021 09:09-0500 Body height 170.18 cm Taylor L Anthony Work Phone: [facility] Work Phone: 05-26-2021 09:09-0500 Body mass index (BMI) [Ratio] 30.7 kg/m2 Taylor L Anthony Work Phone: [facility] Work Phone: 05-26-2021 09:09-0500 Body surface area Derived from formula 2 m2 Taylor L Anthony Work Phone: [facility] Work Phone: 05-26-2021 09:09-0500 Body weight 88.9 kg Taylor L Anthony Work Phone: [facility] Work Phone: 05-26-2021 09:09-0500 Diastolic blood pressure 80 mm[Hg] Taylor L Anthony Work Phone: [facility] Work Phone: 05-26-2021 09:09-0500 Heart rate 84 /min Taylor L Anthony Work Phone: [facility] Work Phone: 05-26-2021 09:09-0500 Systolic blood pressure 136 mm[Hg] Taylor L Anthony Work Phone: [facility] Work Phone: 03-31-2021 10:07-0400 Body temperature 97.5 [degF] Dane Morillo Jr., DPM Work Phone: [facility] 03-31-2021 10:07-0400 Diastolic blood pressure 85 mm[Hg] Dane Morillo Jr., DPM Work Phone: [facility] 03-31-2021 10:07-0400 Heart rate 79 /min Dane Morillo Jr., DPM Work Phone: [facility] 03-31-2021 10:07-0400 Systolic blood pressure 131 mm[Hg] Dane Morillo Jr., DPM Work Phone: [facility] 01-04-2021 10:31-0400 Body height 172.7 cm Joseph Smith MD Work Phone: [facility] 01-04-2021 10:31-0400 Body mass index (BMI) [Ratio] 29.65 kg/m2 Joseph Smith MD Work Phone: [facility] 01-04-2021 10:31-0400 Body weight 88.45 kg Joseph Smith MD Work Phone: [facility] 11-06-2020 09:30-0400 Diastolic blood pressure 94 mm[Hg] Taylor L Anthony Work Phone: [facility] Work Phone: 11-06-2020 09:30-0400 Systolic blood pressure 160 mm[Hg] Taylor L Anthony Work Phone: [facility] Work Phone: 11-06-2020 09:25-0400 Body height 170.18 cm Taylor L Anthony Work Phone: [facility] Work Phone: 11-06-2020 09:25-0400 Body mass index (BMI) [Ratio] 31.34 kg/m2 Taylor L Anthony Work Phone: [facility] Work Phone: 11-06-2020 09:25-0400 Body surface area Derived from formula 2.02 m2 Taylor L Anthony Work Phone: [facility] Work Phone: 11-06-2020 09:25-0400 Body temperature 96 [degF] Taylor L Anthony Work Phone: [facility] Work Phone: 11-06-2020 09:25-0400 Body weight 90.76 kg Taylor L Anthony Work Phone: [facility] Work Phone: 11-06-2020 09:25-0400 Heart rate 88 /min Taylor Cruz Work Phone: [facility] Work Phone: 03-26-2020 08:09-0400 BMI (Body Mass Index) 29.65 kg/m2 Josephivanna Smith [facility] 03-26-2020 08:09-0400 [facility]-26-2020 08:09-0400 Height [facility].7 [facility] 06-13-2019 09:16-0500 BMI (Body Mass Index) 30.11 kg/m2 Joseph [facility] 06-13-2019 09:16-0500 Body [facility] 89.81 [facility] 06-13-2019 09:16-0500 Height 172.7 [facility] 11-01-2018 09:03-0400 BMI (Body Mass Index) 29.19 kg/m2 Joseph [facility] 11-01-2018 09:03-0400 Height 172.7 cm Joseph [facility] 11-01-2018 09:03-0400 Weight 87.09 kg Josephivanna Smith [facility] Encounters Encounter Date Encounter Type Care Provider Facility Start: 08-02-2023 End: 08-03-2023 ambulatory TAYLOR CRUZ [facility] Start: 08-02-2023 End: 08-02-2023 [email or web address] Procedures Date Procedure Procedure Detail Performing Clinician Start: 08-02-2023 DEXA BONE DENSITY KENYA CRUZ Start: 08-02-2023 BI MAMMO BILATERAL SCREENING TOMOSYNTHESIS TAYLOR CRUZ Start: 08-02-2023 Dxa bone density carol ann dy 1/> sites axial skel Taylor Cruz MD Work Phone: Start: 08-02-2023 Mammography [facility] Start: 07-07-2023 CBC W Auto Different ial panel - Blood TAYLOR CRUZ Start: 07-07-2023 Comprehensive metabo lic 2000 panel - Serum or Plasma TAYLOR CRUZ Start: 07-07-2023 Lipid panel TAYLOR KATE MIKEY Start: 07-07-2023 Thyrotropin [Units/v olume] in Serum or Plasma TAYLOR CRUZ Start: 07-07-2023 Lipid 1996 panel - S joleen or Plasma Ben Dxa Start: 12-29-2022 Basic metabolic 2000 panel - Serum or Plasma TAYLOR ANTHONY Start: 12-29-2022 CBC panel - Blood by Automated count TAYLOR CRUZ Start: 11-04-2022 Radex hips bilateral with pelvis 3-4 views Yoandy Torre MD Work Phone: Start: 07-05-2022 Mammography Taylor avendaño MD Work Phone: Start: 11-18-2021 Lipid 1996 panel - S joleen or Plasma Taylor Cruz MD Work Phone: Start: 05-26-2021 Arthrocentesis aspir &/inj major jt/bursa w/o us Joseph Smith MD Work Phone: Start: 01-04-2021 Arthrocentesis aspir &/inj major jt/bursa w/o us Joseph Smith MD Work Phone: Start: 12-14-2020 Colonoscopy Joseph ann MD Work Phone: Start: 12-14-2020 Colonoscopy Taylor Cruz Work Phone: Start: 03-26-2020 Arthrocentesis Joseph Smith Work Phone: Start: 03-26-2020 Injection 1 tendon sheath/ligament aponeurosis Joseph Smith Work Phone: Start: 06-13-2019 Arthrocentesis Joseph Smith Work Phone: Start: 06-19-2018 End: 06-19-2018 Arthrocentesis Joseph Smith Work Phone: Amputation of lower limb Myrtle felix Cruz Work Phone: Cataract surgery Taylor L R aber Work Phone: Colonoscopy Taylor Tank Cruz Work Phone: Hysterectomy Taylor Fu Anthony Work Phone: Release of trigger finger Do kal Tank Cruz Work Phone: Plan of Treatment Date Care Activity Detail Author Start: 12-14-2030 [facility] Start: 07-07-2028 Lipid panel Lipid Panel [facility] Start: 11-18-2026 Lipid panel Lipid Panel [facility] Start: 08-02-2024 Screening for malignant neoplasm of breast Mammogram [facility] Start: 01-17-2024 End: 01-17-2024 Patient encounter procedure 01/17/2024 9:20 AM EDT Office Visit [facility] [address] [place] [id number] Taylor Cruz MD [address] [facility], [address] [place] [address] [facility] Start: 12-31-2023 Medicare Annual Wellness Visit Medicare Annual Wellness Visit (AWV) [facility] Start: 07-05-2023 End: 07-05-2024 CBC W Auto Differential panel - Blood CBC and Auto Differential Lab Routine Hypercholesteremia Expected: 07/05/2023 (Approximate), Expires: 07/05/2024 [facility] Work Phone: Immunizations Immunization Date Immunization Notes Care Provider Fa cili 04-16-2022 Fluzone High-Dose Quadrivalent 0.7 ML Intramuscular Suspension Prefilled Syringe Taylor Cruz Work Phone: [facility] Work Phone: 04-16-2022 influenza virus vaccine, unspecified formulation Taylor Cruz MD Work Phone: [facility] Work Phone: 04-10-2022 Pfizer COVID-19 Vac Bivalent 30 MCG/0.3ML Intramuscular Suspension Taylor Cruz Work Phone: [facility] Work Phone: 11-19-2021 Comirnaty 30 MCG/0.3 ML Intramuscular Suspension Taylor [facility] Work Phone: [facility] Work Phone: 04-29-2021 Fluzone High-Dose Quadrivalent 0.7 ML Intramuscular Suspension Prefilled Syringe Taylormukesh Singher Work Phone: [facility] Work Phone: 04-29-2021 influenza, seasonal, injectable Taylor Anthony Work Phone: [facility] Work Phone: Payers Date Payer Category Payer Medicare [id number] 2020 Medicare [id number] 2020 Medicare [id number] .[id number] 2020 Unknown [id number] 2.16.840.1.948078.3.249.13 2020 Unknown [id number] [id number] .[id number] 2017 Unknown 2015 Unknown [employer] S UPERMED PPO xxxxxxxxxxxx 2015-Present xxxxxxxxxxxx [id number] .[id number] 1955 Unknown [id number] 2.16.840.1.530669.3.579.2. 1955 Unknown [id number] 2.16.840.1.330903.3.579.2.717 1955 Unknown [id number] 2.16.840.1.038591.3.579.2.7 1955 Unknown [id number] 2.16.840.1.008301.3.579.2.900 1955 Unknown [id number] 2.16.840.1.550919.3.579.2. 1955 Unknown [id number] 2.16.840.1.518264.3.579.2.3 1955 Unknown [id number] 2.16.840.1.067248.3.579.2. 1955 Unknown [id number] 2.16.840.1.051501.3.579.2. 1955 Unknown [id number] 2..840.1.612944.3.579.2. 1955 Unknown [id number] 2..840.1.649557.3.579.2. 1955 Unknown [id number] 2.840.1.369027.3.579.2.356 1955 Unknown [id number] 2.840.1.608884.3.579.2.356 1955 Unknown [id number] 2.840.1.457695.3.579.2.356 1955 Unknown [id number] 2.840.1.012831.3.579.2.356 1955 Unknown [id number] 2.16.840.1.905629.3.579.2.356 1955 Unknown [id number] 2..840.1.271147.3.579.2.356 1955 Unknown [id number] 2.16.840.1.142607.3.579.2.356 1955 Unknown [id number] 2.16.840.1.412545.3.579.2.114 3 1955 Unknown [id number] 2.16.840.1.153925.3.579.2.106 9 1955 Unknown [id number] 2.16.840.1.079518.3.579.2.124 4 1955 Unknown [id number] 2.16.840.1.912161.3.579.2.124 4 1955 Unknown [id number] 2.16.840.1.811386.3.579.2.124 4 1955 Unknown [id number] 2.16.840.1.973721.3.579.2.124 5 1955 Unknown [id number] 2.16.840.1.585954.3.579.2.124 5 1955 Unknown [id number] 2.16.840.1.612015.3.579.2.124 3 1955 Unknown [id number] 2.16.840.1.940305.3.579.2.124 3 Social History Date Type Detail Facility Start: 06-20-2017 End: 12-29-2022 Tobacco smoking status NHIS Former smoker [facility] Work Phone: Start: 1955 Sex Assigned At Not on file [facility] Work Phone: Start: 06-13-2019 End: 08-02-2023 Alcohol intake Current drinker of alcohol (finding) [facility] Start: 03-26-2020 End: 12-29-2022 Tobacco use and exposure Never used [facility] Start: 10-26-2021 End: 08-02-2023 Exposure to SARS-CoV-2 (event) Not sure [facility] Start: 08-18-2020 Alcohol Comment occasionally [facility] Start: 12-29-2022 End: 08-02-2023 Former smoker Former smoker [facility] Work Phone: History of tobacco use Current smoker [facility] Tobacco smoking status VTIS Tobacco smoking consumption unknown [facility] History of tobacco use Cigarette Smoker [facility] Work Phone: Start: 12-29-2022 End: 08-02-2023 Tobacco use panel [facility] Work Phone: Clinical Notes 01-04-2021 to 07-05-2023 Maura Preciado MA - 07/05/2023 9:20 AM Cayetano Cruz MD - 07/05/2023 9:20 AM Cayetano Cruz MD - 02/21/2023 1:00 PM EDTPatient Ed Cruz MD - 12/29/2022 9:40 AM EDT Note Date & Type Note Facility 07-05-2023 History of Present illness Narrative Hyperlipidemia: Her last labs showed Total cholesterol of 186, HDL 53.0, LDL 114, Triglycerides 93. There unknown a family history of hyperlipidemia. Subjective Patient ID: Lynn Shelton is a 68 y.o. female who presents for Hyperlipidemia. Hyperlipidemia GERD (gastroesophageal reflux disease) On famotidine and alternates b/w 20 and 40 mg On celebrex for arthritis Dexa scan will order with next mammogram No changes on SBE Hyperlipidemia: Her last labs showed Total cholesterol of 186, HDL 53.0, LDL 114, Triglycerides 93. There unknown a family history of hyperlipidemia. Prehypertension no cp no palpitations had a positve Cologuard was referred to Dr Perez had Polyp November 2019 and scheduled back 1 year due to gross appearance colonscopy 2020 recommend repeat 2023 to 2025 Wound clinic since February At a stand still Hyperbaric is going to be restarted Has right aka Dr Torre pain management and has new leg prosthetic Knee no longer responding to steroid injection Had stem cell injection with the knee a little better but left hip is very tender PT not doing currently but did feel better Celebrex 100 mg daily makes a big difference Left lower leg cyst `1 cm Review of Systems Objective BP 136/82 (BP Location: Left arm, Patient Position: Sitting) Pulse 88 Temp 36.9 C (98.4 F) Wt 84.6 kg (186 lb 9.6 oz) SpO2 97% BMI 29.23 kg/m Physical Exam Vitals reviewed. Constitutional: Appearance: Normal appearance. HENT: Head: Normocephalic and atraumatic. Eyes: Conjunctiva/sclera: Conjunctivae normal. Cardiovascular: Rate and Rhythm: Normal rate and regular rhythm. Pulmonary: Effort: Pulmonary effort is normal. Breath sounds: Normal breath sounds. Musculoskeletal: Cervical back: Neck supple. Skin: General: Skin is warm and dry. Neurological: General: No focal deficit present. Mental Status: She is alert and oriented to person, place, and time. Psychiatric: Mood and Affect: Mood normal. Behavior: Behavior normal. Thought Content: Thought content normal. Judgment: Judgment normal. Assessment/Plan Diagnoses and all orders for this visit: Menopause - XR DEXA bone density; Future Hypercholesteremia - Lipid panel; Future - CBC and Auto Differential; Future - Comprehensive metabolic panel; Future - TSH; Future Encounter for screening mammogram for breast cancer - BI mammo bilateral screening tomosynthesis; Future documented in this encounter [facility] Work Phone: 02-21-2023 History of Present illness Narrative Subjective Patient ID: Lynn Shelton is a 68 y.o. female who presents for pt. c/o left elbow pain. (Pt. C/o left elbow pain x 2 months.). HPI Left extension pushing up out of chair hurts Several years ago hyperextended elbow 1 year ago had olecranon bursitits and resolved with ice Has been using less celebrex and occ voltaren gel No ice Pt is AKA on the right No recent injury Review of Systems Objective BP 130/80 Pulse 86 Ht 1.702 m (5' 7 ) Wt 85.2 kg (187 lb 14.4 oz) SpO2 98% BMI 29.43 kg/m Physical Exam Vitals reviewed. Constitutional: Appearance: Normal appearance. HENT: Head: Normocephalic and atraumatic. Musculoskeletal: General: Tenderness (over triceps tendon left ms 5/5 no lat/med epi or olecranon swelling or tenderness to palp) present. No swelling, deformity or signs of injury. Skin: General: Skin is warm and dry. Neurological: General: No focal deficit present. Mental Status: She is alert and oriented to person, place, and time. Deep Tendon Reflexes: Reflexes normal. Psychiatric: Mood and Affect: Mood normal. Behavior: Behavior normal. Thought Content: Thought content normal. Judgment: Judgment normal. Assessment/Plan Diagnoses and all orders for this visit: Tendinitis of left triceps Rice Hep If no better PT Don't sit in low chairs. documented in this encounter [facility] Work Phone: 02-21-2023 Instructions Taylor Cruz MD - 02/21/2023 1:00 PM EDT Triceps tendonitis home exercise on [employer] documented in this encounter [facility] Work Phone: 12-29-2022 History of Present illness Narrative Subjective Reason for Visit: Lynn Shelton is an 67 y.o. female here for a Medicare Wellness visit. Past Medical, Surgical, and Family History reviewed and updated in chart. Reviewed all medications by prescribing practitioner or clinical pharmacist (such as prescriptions, OTCs, herbal therapies and supplements) and documented in the medical record. HPI GERD (gastroesophageal reflux disease) On famotidine On celebrex for arthritis Dexa scan will order with next mammogram Hypercholesterolemia lipid good november 2021 no cp no palpitations HTN no cp no palp had a positve Cologuard was referred to Dr Perez had Polyp November 2019 and scheduled back 1 year due to gross appearance colonscopy 2020 recommend repeat 2023 to 2025 Wound clinic since February Debridement still Hyperbaraic and had PET On celebrex once a year 200 every day and then changed to bid Has right aka Dr Torre pain management and has new leg prosthetic computer And left hip and knee is painful Has been doing PT online and after 6 to 7 weeks was doing well Stem cell injection not covered by insurance Will be getting stem cells next week Knee no longer responding to steroid injection Celebrex 200 mg now daily Patient Care Team: Taylor Cruz MD as PCP - General Taylor Cruz MD as PCP - [facility] Attributed Provider Review of Systems Objective Vitals: BP 118/80 Pulse 81 Ht 1.702 m (5' 7 ) Wt 89.4 kg (197 lb 1.6 oz) SpO2 98% BMI 30.87 kg/m Physical Exam Vitals reviewed. Constitutional: Appearance: Normal appearance. HENT: Head: Normocephalic and atraumatic. Eyes: Conjunctiva/sclera: Conjunctivae normal. Cardiovascular: Rate and Rhythm: Normal rate and regular rhythm. Pulmonary: Effort: Pulmonary effort is normal. Breath sounds: Normal breath sounds. Musculoskeletal: Cervical back: Neck supple. Comments: Has right aka Skin: General: Skin is warm and dry. Neurological: General: No focal deficit present. Mental Status: She is alert and oriented to person, place, and time. Psychiatric: Mood and Affect: Mood normal. Behavior: Behavior normal. Thought Content: Thought content normal. Judgment: Judgment normal. Assessment/Plan Problem List Items Addressed This Visit Arthritis of knee Relevant Orders Basic Metabolic Panel CBC Hypercholesteremia Relevant Orders Basic Metabolic Panel CBC Above knee amputation of right lower extremity (CMS/HCC) Primary osteoarthritis of left knee Relevant Medications celecoxib (CeleBREX) 200 mg capsule Other Visit Diagnoses Routine general medical examination at health care facility - Primary documented in this encounter [facility] Work Phone: 12-29-2022 Instructions Taylor Cruz MD - 12/29/2022 9:40 AM EDT Check with [facility] to see if you had pneumonia booster either prevnar 13 or prevnar 20 documented in this encounter [facility] Work Phone: 02-04-2022 History of Present illness Narrative Patient is a pleasant 66-year-old female who comes in today for nail care and callus care. 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 Geriatric care is managed by primary including Dr. Oliverio Cruz. Physical Vascular: Left leg DP PT pulses are palpable. CFT is fair minimal edema. Derm: 15 plantar hyperkeratotic lesions no deep palpable nodules no interruption in skin lines. Neuro: Light touch is fair Babinski's is normal. Musculoskeletal: Muscle strength is 5/5 with fair tone can easily wiggle toes the left foot. Nails left foot [id number] are elongated thickened mycotic crumbling dystrophic. -Patient is a pleasant female with history of right leg amputation left leg arterial disease-early, onychomycosis to 5 nails and 5 callus lesions -Given her limb loss history, patient does qualify for callus and nail care. -This is to prevent further limb loss. Procedure: 5 callus lesions were sharply debrided and debulked in height and width with a 15 blade consistent with a q7 modifier. Procedure: 5 nails were sharply debrided and debulked in height and length with a sharp pair of nail nippers consistent with a q7 modifier. Follow-up in 3 months for foot nail care. documented in this encounter [facility] 11-07-2021 History of Present illness Narrative GERD (gastroesophageal reflux disease)famotidine 40 qhs is working well20 mg daily for 5 months did okay but more belchingno dysphagiaon celebrex and tylenolHypercholesterolemia lipid good november 2021no myalgiasno cp no palpitationsHTNhome bp wnlgood controlno sob no cp no palpPatient is back at wound clinic getting hyperbaric treatment she had a preprocedural EKGs that showed 1 PVC out of 15 beats she is asymptomatic.had a positve Cologuard was referred to Dr Garvey Polyp November 2019 and scheduled back 1 year due to gross appearancecolonscopy December 14, 2020 recommend repeat 2023 to 2025Review of SystemsBreast: No lump/ mass, No pain.left knee cortisone shot per Dr Miranda did not workseeiing pain management in [place] get new right leg prosthesis this weekback and hip is betterall other systems have been reviewed and are negative except as noted in the HPI. [facility] Work Phone: 11-05-2021 Instructions Dane Morillo Jr., DPM - 11/05/2021 3:39 PM EDT Lycra top cover shoes documented in this encounter [facility] 11-05-2021 History of Present illness Narrative Patient is a pleasant 66-year-old female who comes in today for nail care and callus care. 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 Geriatric care is managed by primary including Dr. Oliverio Cruz, DLS is 01/27/21. Physical Vascular: Left leg DP PT pulses are palpable. CFT is fair minimal edema. Derm: 15 plantar hyperkeratotic lesions no deep palpable nodules no interruption in skin lines. Neuro: Light touch is fair Babinski's is normal. Musculoskeletal: Muscle strength is 5/5 with fair tone can easily wiggle toes the left foot. Nails left foot [id number] are elongated thickened mycotic crumbling dystrophic. -Patient is a pleasant female with history of right leg amputation left leg arterial disease-early, onychomycosis to 5 nails and 5 callus lesions -Given her limb loss history, patient does qualify for callus and nail care. -This is to prevent further limb loss. Procedure: 5 callus lesions were sharply debrided and debulked in height and width with a 15 blade consistent with a q7 modifier. Procedure: 5 nails were sharply debrided and debulked in height and length with a sharp pair of nail nippers consistent with a q7 modifier. Follow-up in 3 months for foot nail care. documented in this encounter [facility] 10-15-2021 History of Present illness Narrative Pt. was here at 9:15 waiting in her car but was not checked in. Pt. seen from 9:30 -10:00 am this date. Verbal and tactile cues needed with TE. Added several new exercises which patient tolerated well. Handout provided and reviewed with patient. Thera band also provided for rows.Response to treatment: decreased pain.Patient was able to complete today's treatment with some difficulty. [facility] Work Phone: 10-12-2021 History of Present illness Narrative Patient is a pleasant 66-year-old female presenting today for follow up with regards to her left knee. Patient was last seen in office on 10/12/2021 in which she was administered a corticosteroid injection to the left knee. She reports the injection provided her with significant improvement and adequate relief of her pain. She continues to use the prescription of Celebrex that she reports to tolerate well without complaints. However, she does report her knee has been becoming increasingly symptomatic over the past two weeks as the medication has been wearing off. With her pain slowly worsening and with her upcoming vacation to [place] in February, she elects to proceed today with a repeat corticosteroid injection administered to the left knee. [facility] [address] Work Phone: 10-12-2021 History of Present illness Narrative Patient is a pleasant 66-year-old female presenting today for follow up with regards to her left knee. Patient was last seen in office on 10/12/2021 in which she was administered a corticosteroid injection to the left knee. She reports the injection provided her with significant improvement and adequate relief of her pain. She continues to use the prescription of Celebrex that she reports to tolerate well without complaints. However, she does report her knee has been becoming increasingly symptomatic over the past two weeks as the medication has been wearing off. With her pain slowly worsening and with her upcoming vacation to [place] in February, she elects to proceed today with a repeat corticosteroid injection administered to the left knee. [facility] [address] Work Phone: 08-06-2021 History of Present illness Narrative Patient is a pleasant 66-year-old female who comes in today for nail care and callus care. 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 Geriatric care is managed by primary including Dr. Oliverio Cruz, DLS is 01/27/21. Physical Vascular: Left leg DP PT pulses are palpable. CFT is fair minimal edema. Derm: 15 plantar hyperkeratotic lesions no deep palpable nodules no interruption in skin lines. Neuro: Light touch is fair Babinski's is normal. Musculoskeletal: Muscle strength is 5/5 with fair tone can easily wiggle toes the left foot. Nails left foot [id number] are elongated thickened mycotic crumbling dystrophic. -Patient is a pleasant female with history of right leg amputation left leg arterial disease early, onychomycosis to 5 nails and 5 callus lesions -Given her limb loss history, patient does qualify for callus and nail care. -This is to prevent further limb loss. Procedure: 15 callus lesions were sharply debrided and debulked in height and width with a 15 blade consistent with a q7 modifier. Procedure: 5 nails were sharply debrided and debulked in height and length with a sharp pair of nail nippers consistent with a q7 modifier. Follow-up in 3 months for foot nail care. documented in this encounter [facility] 05-26-2021 History of Present illness Narrative GERD (gastroesophageal reflux disease)famotidine 20 qhs is working wellno dysphagiatakes aleve ibuprofen about 5 times per week for LBP and sees chriopracterleft knee will see Dr Smith today usually last 3 to 4 monthsHypercholesterolemiano myalgiasno cp no [id number] sob no cp no palphad a positve Cologuard was referred to Dr Garvey Polyp November 2019 and scheduled back 1 year due to gross appearancecolonscopy 2020 recommend repeat 2023 to 2025Review of SystemsBreast: No lump/ mass, No pain.left knee cortisone shot per Dr Smith doing wellall other systems have been reviewed and are negative except as noted in the HPI. [facility] Work Phone: 03-31-2021 History of Present illness Narrative Patient is a pleasant 66-year-old female who comes in today for nail care and callus care. 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 Geriatric care is managed by primary including Dr. Oliverio Cruz, DLS is 01/27/21. Physical Vascular: Left leg DP PT pulses are palpable. CFT is fair minimal edema. Derm: 5 plantar hyperkeratotic lesions no deep palpable nodules no interruption in skin lines. Neuro: Light touch is fair Babinski's is normal. Musculoskeletal: Muscle strength is 5/5 with fair tone can easily wiggle toes the left foot. Nails left foot [id number] are elongated thickened mycotic crumbling dystrophic. -Patient is a pleasant female with history of right leg amputation left leg arterial disease early, onychomycosis to 5 nails and 5 callus lesions -Given her limb loss history, patient does qualify for callus and nail care. -This is to prevent further limb loss. Procedure: 5 callus lesions were sharply debrided and debulked in height and width with a 15 blade consistent with a q7 modifier. Procedure: 5 nails were sharply debrided and debulked in height and length with a sharp pair of nail nippers consistent with a q8 modifier. Follow-up in 3 months for foot nail care. documented in this encounter [facility] 01-04-2021 History of Present illness Narrative Associated Order(s): LG Jt Injection/Arthrocentesis: L knee Post-Procedure Diagnose(s): Primary osteoarthritis of left knee Dictation on: 01/04/2021 11:26 AM by: JOSEPH SMITH [[id number]] LG Jt Injection/Arthrocentesis: L knee Performed by: Joseph Smith MD Authorized by: Joseph Smith MD Supporting Documentation: Indications: Pain Procedure Details: Location: Knee Site: L knee Prep: patient was prepped and draped in usual sterile fashion Needle size: 22 G Approach: Lateral Medications: 40 mg triamcinolone acetonide 40 mg/mL Anesthetic used: Lidocaine 1% Anesthetic amount (mL): 2 Patient tolerance: Patient tolerated the procedure well with no immediate complications documented in this encounter [facility] Chief complaint Narrative - Reported pt needs a referral for the wound center in [place]. -[facility] Work Phone: [facility] Onychomycosis- Primary Dermatophytosis of nail Peripheral vascular disease, unspecified (HCC) Peripheral vascular disease, unspecified Corns Corns and callosities [facility] Primary osteoarthritis of left knee- Primary [facility] Diagnosis Onychomycosis- Primary Dermatophytosis of nail Peripheral vascular disease, unspecified (HCC) Peripheral vascular disease, unspecified Corns Corns and callosities [facility] Diagnosis Onychomycosis- Primary Dermatophytosis of nail Peripheral vascular disease, unspecified (HCC) Peripheral vascular disease, unspecified Corns Corns and callosities [facility] Diagnosis Onychomycosis- Primary Dermatophytosis of nail Peripheral vascular disease, unspecified (HCC) Peripheral vascular disease, unspecified Corns Corns and callosities [facility] Diagnosis Low back pain, unspecified Pain in left hip Pain in right hip [facility] [place] [facility] Diagnosis Routine general medical examination at health care facility- Primary Routine general medical examination at a health care facility Arthritis of knee Unspecified arthropathy, lower leg Primary osteoarthritis of left knee Above knee amputation of right lower extremity (CMS/HCC) Hypercholesteremia Pure hypercholesterolemia documented in this encounter [facility] Work Phone: Evaluation note* Diagnosis Tendinitis of left triceps- Primary documented in this encounter [facility] Work Phone: Evaluation note* Diagnosis Menopause- Primary Symptomatic menopausal or female climacteric states Hypercholesteremia Pure hypercholesterolemia Encounter for screening mammogram for breast cancer documented in this encounter [facility] Work Phone: Evaluation note* Diagnosis Menopause Symptomatic menopausal or female climacteric states documented in this encounter [facility] Work Phone: Evaluation note* Diagnosis Encounter for screening mammogram for breast cancer documented in this encounter [facility] Work Phone: Evaluation note* Diagnosis Menopause Symptomatic menopausal or female climacteric states documented in this encounter [facility] Work Phone: History of Present illness Narrative* This patient presents with a chronic LBP HX that became worse over the last 9 mths. She mainly relates her sx to stdg/walking. There has been no recent lumbar films taken. She underwent R AKA in 2002and also suffers from L knee pain (TKR pending). She is a low fall risk. She has a long HX of chiropractic treatment for her LB but it has become less effective as of late. Physical findings include most C/C LLB sx reprod with stdg RSB-this stress is similar to the repetitive RSB with R stance of gait. * Continue with R hip strengthening-especially abduction. Also perform core stability/ROM work. Lumbar STW can be employed PRN. * Clinical Presentation: Stable and/or uncomplicated characteristics. * Level of Complexity: low * Problem List: activity limitations, ADLs/IADLs/self care skills, decreased functional level, decreased knowledge of HEP, decreased knowledge of precautions, fall risk, gait/locomotion, pain, range ofmotion/joint mobility and strength. [facility] Work Phone: History of Present illness NarrativePatient identified by name and . During standing activities, patient was standing on blue AirEx pad with L LE to allow for increased height of R above knee amputation. Progressed patient with moredynamic standing activities and no increased pain was noted throughout session. Anahy Merlos, [facility]. All clinical decision making and treatment directly supervised by Jasmina Jj INSURANCE LOSS ASSESSOR [id number]. [facility] Work Phone: History of Present illness Narrative* Good tolerance with increased reps/resistance this date. Pt. c/o soreness with low back/hip with side lying abd. STM to the left to mid QL/paraspinals with palpable tenderness noted. Pt. reports relief following session. * Response to treatment: decreased pain. * Patient was able to complete today's treatment with some difficulty. [facility] Work Phone: History of Present illness Narrative* The patient is being seen for the subsequent annual wellness visit. * Past Medical, Surgical and Family History: reviewed and updated in chart. * Medications and Supplements: Review of all medications by a prescribing practitioner or clinical pharmacist (such as prescriptions, OTCs, herbal therapies and supplements) documented in the medical record. * No, the patient is not using opioids. * Patient Self Assessment of Health Status: good. * Tobacco use: Non-User * Alcohol use: User * Illicit drug use: Non-User * Current diet: well balanced diet. * Exercise Frequency: regularly. * Depression/Suicide Screening: . * During the past 2 weeks, the patient has not felt down, depressed or hopeless. * During the past 2 weeks, the patient has not felt little interest or pleasure in doing things. * Hearing Impairment: none. * Cognitive Impairment: No cognitive impairment observed. * Bathing: performs independently. * Dressing: performs independently. * Walking: performs independently. * Managing Finances: performs independently. * Shopping: performs independently. * Managing Medications: performs independently. * Housework / Basic Home Maintenance: performs independently. * Falls Risk Screening:. LYNN has not fallen in the last 6 months. * Home safety risk factors: uneven floors. * Advance directives:. Advanced Care Planning discussed and documented advance care plan or surrogatedecision maker documented in the medical record. Patient has no living will. Patient has no healthcare POA. * Patient's End of Life Decisions: I do not agree to follow the patient's decisions. Concerns with the patient's end of life decisions: full code. * GERD (gastroesophageal reflux disease) * famotidine 40 qhs is working well * will decrease to 20 mg since not needing as many nsaids after knee shot * no dysphagia * takes aleve ibuprofen about1 to 2 times per week for LBP * Hypercholesterolemia lipid good november 2021 * no myalgias * no cp no palpitations * HTN * home bp wnl * no sob no cp no palp * had a positve Cologuard was referred to Dr Perez * had Polyp November 2019 and scheduled back 1 year due to gross appearance * colonscopy 2020 recommend repeat 2023 to 2025 * Review of Systems * Breast: No lump/ mass, No pain. * left knee cortisone shot per Dr Miranda doing well 2 months ago * all other systems have been reviewed and are negative except as noted in the HPI. [facility] Work Phone: History of Present illness Narrative* 66 YOF presents for referral for wound care. * History of R groin/abdomen wound just superior to her prosthesis as a result of her radiation therapy years ago. Has come and gone over the years, has started to open recently. Has gone to [facility] for years for this. Needs referral. -[facility] Work Phone: Reason for visit Narrative* Initial Evaluation . LBP. * Referred by: [facility] Work Phone: Assessments Diagnosis Primary osteoarthritis of le ft knee - Primary Diagnosis Primary osteoarthritis of le ft knee - Primary Right elbow pain Pain in joint, upper arm Diagnosis Primary osteoarthritis of le ft knee - Primary Diagnosis Primary osteoarthritis of left knee- Primary Diagnosis Primary osteoarthritis of left knee Diagnosis Primary osteoarthritis of left knee- Primary Trigger thumb of right hand Diagnosis Trigger thumb of right hand- Primary Exposure to SARS virus Exposure to SARS-associated coronavirus Diagnosis Trigger thumb of right hand- Primary Exposure to SARS virus Exposure to SARS-associated coronavirus Trigger thumb of right hand Diagnosis Trigger thumb of right hand- Primary History of Present Illness * Joseph Smith MD - 06/19/2018 12:09 PM EST Associated Order(s): OH ORT LARGE JOINT ARTHROCENTESIS Post-Procedure Diagnose(s): Primary osteoarthritis of left knee Lynn is seen for followup of her left knee arthritis. Came in for an injection. We had x-rayed kathe year ago and she has severe degenerative arthritis. She also has right kkqhl-hry-mtrg amputation.I have discussed the options. But basically she wants an injection. After sterile scrub, I aspirated the left knee of a few cubic centimeters of non-turbid synovial fluid and then injected 40 mg of Kenalog mixed with Xylocaine and hopefully this will help her significantly. When walking she has mild varus but no gross deformity. LG Jt Injection/Arthrocentesis Performed by: JOSEPH SMITH Authorized by: JOSEPH SMITH Supporting Documentation: Indications: Pain Procedure Details: Location: Knee Site: L knee Prep: patient was prepped and draped in usual sterile fashion Needle size: 22 G Approach: Lateral Medications: 40 mg triamcinolone acetonide 40 mg/mL Anesthetic used: Lidocaine 1% Anesthetic amount (mL): 2 Patient tolerance: Patient tolerated the procedure well with no immediate complications in this encounter* Joseph Smith MD - 11/01/2018 9:34 AM EDT Dictation on: 11/01/2018 9:35 AM by: JOSEPH SMITH [[id number]] documented in this encounter* Joseph Smith MD - 06/13/2019 6:06 PM EST Associated Order(s): LG Jt Injection/Arthrocentesis: L knee Post-Procedure Diagnose(s): Primary osteoarthritis of left knee Dictation on: 06/13/2019 6:09 PM by: JOSEPH SMITH [[id number]] LG Jt Injection/Arthrocentesis: L knee Performed by: Joseph Smith MD Authorized by: Joseph Smith MD Supporting Documentation: Indications: Pain Procedure Details: Location: Knee Site: L knee Prep: patient was prepped and draped in usual sterile fashion Needle size: 22 G Approach: Lateral Medications: 40 mg triamcinolone acetonide 40 mg/mL Anesthetic used: Lidocaine 1% Anesthetic amount (mL): 2 Aspirate amount (ml): 5 Aspirate: Clear Patient tolerance: Patient tolerated the procedure well with no immediate complications documented in this encounter* Joseph Smith MD - 03/26/2020 8:31 AM EDT Associated Order(s): Tendon Sheath Injection: Flexor Tendon Sheath Post-Procedure Diagnose(s): Trigger thumb of right hand Tendon Sheath Injection: Flexor Tendon Sheath Performed by: Joseph Smith MD Authorized by: Joseph Smtih MD Indications: Pain Location: Thumb Laterality: Right Prep: patient was prepped and draped in usual sterile fashion Needle size: 25 G Medications: 40 mg triamcinolone acetonide 40 mg/mL (10mg) Anesthetic used: Lidocaine 1% Anesthetic amount (mL): 1 Patient tolerance: Patient tolerated the procedure well with no immediate complications * Joseph Smith MD - 03/26/2020 8:27 AM EDT Associated Order(s): LG Jt Injection/Arthrocentesis: L knee Post-Procedure Diagnose(s): Primary osteoarthritis of left knee Dictation on: 03/26/2020 8:30 AM by: JOSEPH SMITH [[id number]] LG Jt Injection/Arthrocentesis: L knee Performed by: Joseph Smith MD Authorized by: Joseph Smith MD Supporting Documentation: Indications: Pain Procedure Details: Location: Knee Site: L knee Prep: patient was prepped and draped in usual sterile fashion Needle size: 22 G Approach: Lateral Medications: 40 mg triamcinolone acetonide 40 mg/mL Anesthetic used: Lidocaine 1% Anesthetic amount (mL): 2 Patient tolerance: Patient tolerated the procedure well with no immediate complications documented in this encounter* Joseph Smith MD - 08/31/2020 9:45 AM EST Dictation on: 08/31/2020 9:46 AM by: JOSEPH SMITH [[id number]] documented in this encounter Advance Directives No Advanced Directives Records FoundDocuments on File Type Date Recorded Patient [employer] Expl anation Advance Directives and Living Will Documents on File Type Date Recorded Patient [employer] Expl anation Advance Directives and Livin g Will 08/18/2020 9:39 AM Summary Purpose Family History No Family History Records FoundUnknown Family Member Name Dates Details Family history of arthritis: Mother(V17.7, Z82.61) Status:Active Family history of cardiac di sorder: Mother, Father(V17.49, Z82.49) Status:Active Unknown Family Member Name Dates Details Family history of arthritis: Mother(V17.7, Z82.61) Status:Active Family history of cardiac di sorder: Mother, Father(V17.49, Z82.49) Status:Active Unknown Family Member Name Dates Details Family history of arthritis: Mother(V17.7, Z82.61) Status:Active Family history of cardiac di sorder: Mother, Father(V17.49, Z82.49) Status:Active Unknown Family Member Name Dates Details Family history of arthritis: Mother(V17.7, Z82.61) Status:Active Family history of cardiac di sorder: Mother, Father(V17.49, Z82.49) Status:Active Unknown Family Member Name Dates Details Family history of arthritis: Mother(V17.7, Z82.61) Status:Active Family history of cardiac di sorder: Mother, Father(V17.49, Z82.49) Status:Active Unknown Family Member Name Dates Details Family history of arthritis: Mother(V17.7, Z82.61) Status:Active Family history of cardiac di sorder: Mother, Father(V17.49, Z82.49) Status:Active Unknown Family Member Name Dates Details Family history of arthritis: Mother(V17.7, Z82.61) Status:Active Family history of cardiac di sorder: Mother, Father(V17.49, Z82.49) Status:Active Unknown Family Member Name Dates Details Family history of arthritis: Mother(V17.7, Z82.61) Status:Active Family history of cardiac di sorder: Mother, Father(V17.49, Z82.49) Status:Active Unknown Family Member Name Dates Details Family history of arthritis: Mother(V17.7, Z82.61) Status:Active Family history of cardiac di sorder: Mother, Father(V17.49, Z82.49) Status:Active Unknown Family Member Name Dates Details Family history of arthritis: Mother(V17.7, Z82.61) Status:Active Family history of cardiac di sorder: Mother, Father(V17.49, Z82.49) Status:Active Unknown Family Member Name Dates Details Family history of arthritis: Mother(V17.7, Z82.61) Status:Active Family history of cardiac di sorder: Mother, Father(V17.49, Z82.49) Status:Active Unknown Family Member Name Dates Details Family history of arthritis: Mother(V17.7, Z82.61) Status:Active Family history of cardiac di sorder: Mother, Father(V17.49, Z82.49) Status:Active Unknown Family Member Name Dates Details Family history of arthritis: Mother(V17.7, Z82.61) Status:Active Family history of cardiac di sorder: Mother, Father(V17.49, Z82.49) Status:Active Unknown Family Member Name Dates Details Family history of arthritis: Mother(V17.7, Z82.61) Status:Active Family history of cardiac di sorder: Mother, Father(V17.49, Z82.49) Status:Active Unknown Family Member Name Dates Details Family history of arthritis: Mother(V17.7, Z82.61) Status:Active Family history of cardiac di sorder: Mother, Father(V17.49, Z82.49) Status:Active Unknown Family Member Name Dates Details Family history of arthritis: Mother(V17.7, Z82.61) Status:Active Family history of cardiac di sorder: Mother, Father(V17.49, Z82.49) Status:Active Unknown Family Member Name Dates Details Family history of arthritis: Mother(V17.7, Z82.61) Status:Active Family history of cardiac di sorder: Mother, Father(V17.49, Z82.49) Status:Active Unknown Family Member Name Dates Details Family history of arthritis: Mother(V17.7, Z82.61) Status:Active Family history of cardiac di sorder: Mother, Father(V17.49, Z82.49) Status:Active Family history of chronic ob structive pulmonary disease: Sister(V17.6, Z82.5) Status:Active Unknown Family Member Name Dates Details Family history of arthritis: Mother(V17.7, Z82.61) Status:Active Family history of cardiac di sorder: Mother, Father(V17.49, Z82.49) Status:Active Family history of chronic ob structive pulmonary disease: Sister(V17.6, Z82.5) Status:Active Unknown Family Member Name Dates Details Family history of arthritis: Mother(V17.7, Z82.61) Status:Active Family history of cardiac di sorder: Mother, Father(V17.49, Z82.49) Status:Active Family history of chronic ob structive pulmonary disease: Sister(V17.6, Z82.5) Status:Active Unknown Family Member Name Dates Details Family history of arthritis: Mother(V17.7, Z82.61) Status:Active Family history of cardiac di sorder: Mother, Father(V17.49, Z82.49) Status:Active Family history of chronic ob structive pulmonary disease: Sister(V17.6, Z82.5) Status:Active Chief Complaint 6 month med check.6 MO FU/AWVPT HERE FOR FU LEFT KNEE. STATES LAST INJECTION HELPED UNTIL LAST WEEK. PT DID HELP AND HAS CONTINUED WITH THE HOME EXERCISES. NOTICED PAIN RETURNING 3 WKS AGO. CELEBREX IS HELPING.PT HERE FOR FU LEFT KNEE. STATES LAST INJECTION HELPED UNTIL LAST WEEK. PT DID HELP AND HAS CONTINUED WITH THE HOME EXERCISES. NOTICED PAIN RETURNING 3 WKS AGO. CELEBREX IS HELPING.PT HERE FOR FU LEFT KNEE. STATES LAST INJECTION HELPED UNTIL LAST WEEK. PT DID HELP AND HAS CONTINUED WITH THE HOME EXERCISES. NOTICED PAIN RETURNING 3 WKS AGO. CELEBREX IS HELPING.6 month. Reason for Referral Specialty Diagnoses / Procedures Referred By Lori solis Referred To Contact Radiology Diagnoses Encounter for screening mammogram for breast cancer Procedures BI mammo bilateral screening tomosynthesis Taylor Cruz MD [address] [facility], [place] [address] Referral ID Status Reason Start Date Expiration Date Visits Requested Visits Authorized [id number] Authorized Perform Procedure 3 07/04/2024 1 1 Specialty Diagnoses / Procedures Referred By Lori solis Referred To Contact Radiology Diagnoses Menopause Procedures XR DEXA bone density Taylor Cruz MD [address] [facility], [place] [address] Referral ID Status Reason Start Date Expiration Date Visits Requested Visits Authorized [id number] Pending Review Perform Procedure 3 07/04/2024 1 1 Additional Source Comments Reason for Visit (unrecogniz ed section and content) Reason Comments Pain Follow-up Reason Comments Follow-up Pain Reason Comments Suture / Staple Removal Wound Check Reason Comments Nail Care Left foot nail care. States her nails were sore but are doing better now. Foot Problem States she is out of her RX lotion for the bumps on of her foot. Reason Comments Nail Care Patient is here for nail and callus care. DLS by Dr Cruz was 05/26/2021. Reason Comments Nail Care Nail and callus care . Reason Comments Nail Care Nail care and follow up from spots on bottom of left foot. Pt states the spots are better and not painful right now. Reason Comments Medicare Annual Wellness Visit Subsequen t 6 month mdck Reason Comments pt. c/o left elbow pain. Pt. C/o left el bow pain x 2 months. Reason Comments Hyperlipidemia Specialty Diagnoses / Procedures Referred By Contac t Referred To Contact Radiology Diagnoses Menopause Procedures XR DEXA bone density Taylor Cruz MD [address] [facility], [facility] [address] [phone] Referral ID Status Reason Start Date Expiration Date Visits Requested Visits Authorized [id number] Pending Review Perform Procedure 3 07/04/2024 1 1 Specialty Diagnoses / Procedures Referred By Contac t Referred To Contact Radiology Diagnoses Encounter for screening mammogram for breast cancer Procedures BI mammo bilateral screening tomosynthesis Taylor Cruz MD [address] [facility], [facility] [address] [phone] Referral ID Status Reason Start Date Expiration Date Visits Requested Visits Authorized [id number] Authorized Perform Procedure 3 07/04/2024 1 1 INFORMATION SOURCE (unrecogn ized section and content) DATE CREATED AUTHOR AUTHOR'S ORGANIZ ATION 08/15/2020 [facility] DATE CREATED AUTHOR AUTHOR'S ORGANIZ ATION 09/05/2020 [facility] DATE CREATED AUTHOR AUTHOR'S ORGANIZ ATION 12/19/2020 [facility] DATE CREATED AUTHOR AUTHOR'S ORGANIZ ATION 04/14/2022 [facility] DATE CREATED AUTHOR AUTHOR'S ORGANIZ ATION 06/14/2022 [facility] DATE CREATED AUTHOR AUTHOR'S ORGANIZ ATION 06/14/2022 [facility] DATE CREATED AUTHOR AUTHOR'S ORGANIZ ATION 11/06/2022 [facility] DATE CREATED AUTHOR AUTHOR'S ORGANIZ ATION 12/30/2022 [facility] DATE CREATED AUTHOR AUTHOR'S ORGANIZ ATION 07/07/2023 [facility] DATE CREATED AUTHOR AUTHOR'S ORGANIZ ATION 07/09/2023 [facility] DATE CREATED AUTHOR AUTHOR'S ORGANIZ ATION 08/08/2023 [facility] Care Teams (unrecognized sec tion and content) Buying Agent Relationship Specialty Start Date End Date Taylor Cruz MD [address] [place] [phone] PCP - General Family Medicine 07/09/15 Buying Agent Relationship Specialty Start Date End Date Taylor Cruz MD [address] [place] [phone] PCP - General Family Medicine 07/09/15 Buying Agent Relationship Specialty Start Date End Date Taylor Cruz MD [address] [facility] [place] [phone] PCP - General Family Medicine 11/04/22 Buying Agent Relationship Specialty Start Date End Date Taylor Cruz MD [address] [facility], [facility] [address] [phone] PCP - General 03/12/19 Taylor Cruz MD [address] [facility], [facility] [address] [phone] PCP - MSSP ACO Attributed Provider 07/10/21 Buying Agent Relationship Specialty Start Date End Date Taylor Cruz MD [address] [facility], [facility] [address] [phone] PCP - General 03/12/19 Taylor Cruz MD [address] [facility], [facility] [address] [phone] PCP - MSSP ACO Attributed Provider 07/10/21 Buying Agent Relationship Specialty Start Date End Date Taylor Cruz MD [address] [facility], [address] [place] [address] PCP - General 03/12/19 Taylor Cruz MD [address] [facility], [address] [place] [address] PCP - MSSP ACO Attributed Provider 07/10/21 Buying Agent Relationship Specialty Start Date End Date Taylor Cruz MD [address] [facility], [address] [place] [address] PCP - General 03/12/19 Taylor Cruz MD [address] [facility] [address] [place] [address] PCP - MSSP ACO Attributed Provider 07/10/21 Buying Agent Relationship Specialty Start Date End Date Taylor Cruz MD [address] [facility] [address] [place] [address] PCP - General 03/12/19 Taylor Cruz MD [address] [facility], [address] [place] [address] PCP - MSSP ACO Attributed Provider 07/10/21 FOR RECORDS PERTAINING TO PATIENTS WHO ARE OR HAVE BEEN ENROLLED IN A CHEMICAL DEPENDENCY/SUBSTANCEABUSE PROGRAM, SOME INFORMATION MAY BE OMITTED. This clinical summary was aggregated from multiple sources. Caution should be exercised in using it in the provision of clinical care. This summary normalizes information from multiple sources, and as a consequence, information in this document may materially change the coding, format and clinical context of patient data. In addition, data may be omitted in some cases. CLINICAL DECISIONS SHOULD BE BASED ON THE PRIMARY CLINICAL RECORDS. [facility] [employer] [facility]. provides no warranty or guarantee of the accuracy or completeness of information in this document.
[2023-09-11 12:44] LABS: Absolute Lymphocyte Count 0.95 X10^3/uL (0.83-4.51); Absolute Neutrophil Count 6.1 X10^3/uL (2.0-7.7); Basophil# 0.02 X10^3/uL; Basophil% 0.3 % (0-1); Eosinophil# 0.04 X10^3/uL; Eosinophils% 0.5 % (0-5); Hematocrit 39.9 % (37-47); Lymphocyte # 0.95 X10^3/ul (0.83-4.51); Lymphocyte % 12.3 % (19-41); Mean Corp Hgb Conc 32.6 g/dL (32-36); Mean Corpuscular Hgb 28.3 pg (27.0-32.0); Mean Corpuscular Volume 86.7 fL (81-99); Mean Platelet Vol. 9.3 fl (6.2-12.0); Monocyte# 0.64 X10^3/uL; Monocyte% 8.3 % (0-10); NRBC Flagged by Analyzer 0 % (0-5); Neutrophil # 6.06 X10^3/uL (2.7-7.7); Neutrophil % 78.2 % (47-70); Platelet Count 212 K/mm3 (150-450); RBC Distribution Width CV 13.2 % (11.6-14.6); RBC Distribution Width SD 41.1 fl (35.1-43.9); White Blood Count 7.7 K/mm3 (4.4-11.0)
[2023-09-11 12:49] LABS: Anion Gap 4 (5-15); BUN 11 mg/dL (7-18); BUN/Creat Ratio 21.5 RATIO (10-20); Calcium,Total 9.8 mg/dL (8.5-10.1); Chloride 107 mmol/L (98-107); Creatinine, Serum 0.51 mg/dL (0.55-1.02); EST Glomerular Filtration Rate 127 mL/min (>60); Est Glom Filt Rate - Afr Amer 153 mL/min (>60); Estimated Creatinine Clearance 75.18 ml/min; Glucose 115 mg/dL (74-106); Potassium 3.8 mmol/L (3.5-5.1); Sodium Level 137 mmol/L (136-145)
[2023-09-11] MEDS: Ampicillin/Sulbactam 3 GM in 0.9% Normal Saline (100mL MB+) 100 ML IV (13:14)
--- NOTE | 2023-09-11 13:34 | CT_ITS ---
EXAM: CT PELVIS WITH INTRAVENOUS CONTRAST CLINICAL INDICATION: wound R groin TECHNIQUE: Helically acquired images were obtained of the pelvis with intravenous contrast. This CT exam was performed using one or more of the following dose reduction techniques: automated exposure control, adjustment of the mA and/or kV according to patient size, and/or use of iterative reconstruction technique. CONTRAST: IV 100mL Isovue-370 RADIATION DOSE: CTDIvol = 27.22 mGy, DLP = 1200.35 mGy-cm COMPARISON: No relevant prior studies available. FINDINGS: BOWEL: Unremarkable as visualized. No bowel distention. No focal inflammatory change. APPENDIX: Not visualized. INTRAPERITONEAL SPACE: Unremarkable. No ascites or other fluid collection. No free air. BLADDER: Unremarkable. REPRODUCTIVE: Status post hysterectomy. BONES/JOINTS: No suspicious lytic or blastic abnormality. SOFT TISSUES: Mild soft tissue swelling and edema of the medial aspect of the right groin with possible adjacent soft tissue ulceration. No evidence of drainable abscess. No abnormal fluid collection is seen. Partially visualized soft tissue swelling and edema about the visualized mid right thigh. The inferior aspect of the distal included on this exam. Adjacent surgical clips. Small right inguinal hernia with adjacent small bowel loop without evidence of herniation. Fatty lesion/lipoma lateral to the right inguinal canal. LYMPH NODES: Unremarkable. No enlarged lymph nodes. CT/Pelvis WITH IV Contrast IMPRESSION: 1. Mild soft tissue swelling and edema of the medial aspect of the right groin with possible adjacent soft tissue ulceration. No evidence of drainable abscess. 2. Partially visualized soft tissue swelling and edema about the visualized mid right thigh is not entirely excluded on this exam. 3. Small right inguinal hernia containing fat. Electronically Signed: Tab Gunn MD at 14:50 EST ,
[2023-09-11 14:38] VITALS: BP 153/76; PULSE 91; RESP 18; TEMP 36.9; O2SAT 98
[2023-09-11 14:39] VITALS: BP 153/76; PULSE 91; RESP 18; TEMP 36.9; O2SAT 98
[2023-09-11 14:40] VITALS: BP 153/76; PULSE 91; RESP 18; TEMP 36.9; O2SAT 98
--- NOTE | 2023-09-11 15:44 | PCM.HP.STD ---
HPI - General General Date of Admission: 09/11/23 Date of Service: 09/11/23 Chief Complaint: Cellulitis HPI Narrative DAMIEN ANDRADE, is a 68 F who presented to the emergency department at [facility] on 09/11/2023 from the wound center due to concern of right stump cellulitis. Patient has a history of an LEONARDO in 2000. She was diagnosed with melanoma in the 1970s that required radiation and excisional treatment with lymphadenectomy in the right groin. 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 She states overall her infections come and go and the wounds come and go however the wound seems to be healing more slowly now than they had previously. She noticed redness to her right thigh distally over the past week. She has had some low-grade fevers at home with a Tmax last night of 100 degrees. She saw the wound center this morning for follow-up appointment with regards to her right groin ulceration and they encouraged her to come the emergency department. Vital signs on presentation showed temperature of 99, heart rate was 104, blood pressures initially 167/83, respiratory rate 20 and oxygen saturations were 97% on room air. CBC was unremarkable however she did have a left shift on her differential with a 78.2% neutrophilia. Her chemistry panel was unremarkable. With the wound in the area we did get a CT of her pelvis to make sure there is no tunneling abscess. CT of the pelvis with IV contrast showed mild soft tissue swelling and edema of the medial aspect of the right groin with possible adjacent soft tissue ulceration but no evidence of drainable abscess and partially visualized soft tissue swelling and edema about the visualized mid right thigh area as well as a small right inguinal fat-containing hernia. She was treated with Unasyn in the emergency department and request for admission was made. She has not been on oral antibiotics as of yet and has not failed outpatient treatment. I reviewed previous cultures and she has had multiple organisms including MSSA and some anaerobic growth. 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 Home Medications famotidine 20 mg tablet 20 mg PO QHS 06/20/17 [History Last Taken Unknown] pravastatin 20 mg tablet 20 mg PO QHS 90 days ##90 12/26/17 [History Last Taken Unknown] acetaminophen 650 mg tablet,extended release (8 Hour Pain Reliever) 1,300 mg PO Q8H PRN pain 09/11/23 [History Last Taken Unknown] calcium carbonate 600 mg calcium (1,500 mg) tablet (Calcium) 1,200 mg PO DAILY 09/11/23 [History Last Taken Unknown] cholecalciferol (vitamin D3) 50 mcg (2,000 unit) tablet (Vitamin D3) 2,000 unit PO DAILY 09/11/23 [History Last Taken Unknown] Allergy/AdvReac Type Severity Reaction Status Date / Time No Known Allergies Allergy Verified 09/11/23 11:27 Family History Other Heart disease Hypertension Surgical History Hx of AKA (above knee amputation) Social History Smoking Status: Former smoker alcohol intake: current alcohol intake frequency: holidays/special occasions only Vital Signs Vital Signs Vital Signs: 09/11/23 11:27 09/11/23 14:38 09/11/23 14:39 Temperature 99 F 98.5 F 98.5 F Temperature Source Temporal Oral Pulse Rate 104 H 91 91 Respiratory Rate 20 H 18 18 Blood Pressure 167/83 H 153/76 H 153/76 H Blood Pressure Mean 111 101 101 Pulse Ox 97 98 98 Oxygen Delivery Method Room Air Room Air 09/11/23 14:40 Temperature 98.5 F Temperature Source Oral Pulse Rate 91 Respiratory Rate 18 Blood Pressure 153/76 H Blood Pressure Mean 101 Pulse Ox 98 Oxygen Delivery Method Room Air Weight Weight: 84.5 kg Body Mass Index (BMI) 29.1 Physical Exam Const alert, oriented x3, no apparent distress, healthy appearing and well nourished Constitutional Narrative: Overweight, older, white female, sitting in bed, appears comfortable nontoxic, very pleasant General Appearance: cooperative HEENT normocephalic, head/scalp atraumatic, hearing grossly normal bilaterally and moist oral mucous membranes HEENT Narrative: Mallampati is 2, no thrush Eyes PERRL, EOMs intact bilaterally and conjunctivae normal Eyes Narrative: No scleral icterus Neck no lymphadenopathy and supple Neck Narrative: Trachea is midline, no thyroid enlargement Resp normal respiratory effort, no retractions, no use of accessory muscles and clear to auscultation bilaterally Auscultation: Negative for crackles, rhonchi or wheezes Cardio regular rate, regular rhythm, S1 normal heart sound, S2 normal heart sound, no murmurs, no rub, no gallops and no clicks GI normal to inspection, nondistended, normoactive bowel sounds, soft to palpation and non-tender Extremity Extremity Narrative: Left lower extremity without any clubbing, cyanosis, or edema, right stump with AKA previously is significantly erythematous up towards the groin and slightly edematous Skin Skin Narrative: Right stump as above, groin also has a wound that appears to have some tunneling but no significant drainage Neuro oriented x3, moves all extremities and no focal motor deficits Speech: speech normal Psych affect normal Psych Narrative: Pleasant, interacts appropriately Results Lab / Micro Data 09/11/23 12:20 09/11/23 12:20 Labs: Laboratory Results - last 24 hr 09/11/23 12:20: WBC 7.7, RBC 4.60, Hgb 13.0, Hct 39.9, MCV 86.7, MCH 28.3, MCHC 32.6, RDW Std Deviation 41.1, RDW Coeff of Criselda 13.2, Plt Count 212, MPV 9.3, Immature Gran % (Auto) 0.400, Neut % (Auto) 78.2 H, Lymph % (Auto) 12.3 L, [place] % (Auto) 8.3, Eos % (Auto) 0.5, Baso % (Auto) 0.3, Absolute Neuts (auto) 6.1, Absolute Lymphs (auto) 0.95, Nucleated RBC % 0, Sodium 137, Potassium 3.8, Chloride 107, Carbon Dioxide 26.0, Anion Gap 4 L, BUN 11, Creatinine 0.51 L, Estim Creat Clear Calc 75.18, Est GFR (MDRD) Af Amer 153, Est GFR (MDRD) Non-Af 127, BUN/Creatinine Ratio 21.5 H, Glucose 115 H, Calcium 9.8 Imaging Radiology Impression Pelvis CT 09/11/23 13:34 IMPRESSION: 1. Mild soft tissue swelling and edema of the medial aspect of the right groin with possible adjacent soft tissue ulceration. No evidence of drainable abscess. 2. Partially visualized soft tissue swelling and edema about the visualized mid right thigh is not entirely excluded on this exam. 3. Small right inguinal hernia containing fat. Electronically Signed: Tab Gunn MD at 14:50 EST , Assessment & Plan Assessment/Plan (1) Cellulitis of right thigh: (2) Elevated blood pressure reading: PLAN: Plan Right AKA stump cellulitis -Blood cultures obtained, wound cultures obtained due to groin wound -Will utilize Zosyn due to previous cultures showing anaerobic -Check MRSA PCR and add vancomycin if positive -Wound care consulted -Please add Rajinder bandage to right stump to help with any swelling Right groin wound -Wound care consult -Continued outpatient wound care after discharge -Cultures pending -Antibiotics as above Elevated blood pressure -I reviewed her blood pressures from previous and it appears that she probably has hypertension -Will start amlodipine 5 mg today and reevaluate for up titration requirements or additional agents -Continue to monitor GERD -Continue home famotidine Hyperlipidemia -Continue on pravastatin History of right lower extremity melanoma -Treated with amputation and radiation -Diagnosed in the 1970s Right AKA -Patient ambulates at baseline DVT prophylaxis -Lovenox subcu CODE STATUS -Full code Charges/Coding Visit Charges Inpatient E&M: 70041 Init Hosp L2
[2023-09-11 16:09] VITALS: BMI 26.9
[2023-09-11 16:20] VITALS: BP 133/69; PULSE 93; RESP 20; TEMP 37.6; O2SAT 97
[2023-09-11] MEDS: amLODIPine 5 MG Tablet PO (17:40)
[2023-09-11 18:44] LABS: M R Staph aureus DNA By PCR Negative (Negative); Probe Check PASS; Specimen Processing Control PASS
[2023-09-11 20:00] VITALS: BP 126/66; PULSE 88; RESP 16; TEMP 36.4; O2SAT 97
[2023-09-11] MEDS: 0.9% Saline Lock 10 ML Syringe IV (21:05)
[2023-09-11] MEDS: Piperacil/Tazobactam 3.375 GM in 0.9% Normal Saline (50mL MB+) 50 ML IV (21:05)
[2023-09-11] MEDS: 0.9% Normal Saline (250mL Bag) 250 ML 15 ML IV (21:05)
[2023-09-11] MEDS: Acetaminophen 500 MG Tablet 1000 MG PO (21:07)
[2023-09-11] MEDS: Pravastatin 20 MG Tablet PO (21:07)
[2023-09-11] MEDS: Famotidine 20 MG Tablet PO (21:07)
[2023-09-12 02:10] VITALS: BP 122/70; PULSE 66; RESP 16; TEMP 36.6; O2SAT 100
[2023-09-12] MEDS: Acetaminophen 500 MG Tablet 1000 MG PO ×3 (05:11→21:24)
[2023-09-12] MEDS: Piperacil/Tazobactam 3.375 GM in 0.9% Normal Saline (50mL MB+) 50 ML IV ×3 (05:12→21:24)
[2023-09-12 05:59] LABS: Absolute Lymphocyte Count 1.38 X10^3/uL (0.83-4.51); Basophil# 0.03 X10^3/uL; Basophil% 0.6 % (0-1); Eosinophil# 0.15 X10^3/uL; Eosinophils% 2.9 % (0-5); Hematocrit 38.2 % (37-47); Hemoglobin 12.3 g/dL (12.0-15.0); Lymphocyte # 1.38 X10^3/ul (0.83-4.51); Lymphocyte % 27.1 % (19-41); Mean Corp Hgb Conc 32.2 g/dL (32-36); Mean Platelet Vol. 9.4 fl (6.2-12.0); Monocyte# 0.47 X10^3/uL; Monocyte% 9.2 % (0-10); NRBC Flagged by Analyzer 0 % (0-5); Neutrophil # 3.04 X10^3/uL (2.7-7.7); Neutrophil % 59.8 % (47-70); Platelet Count 187 K/mm3 (150-450); RBC Distribution Width CV 13.2 % (11.6-14.6); RBC Distribution Width SD 42.2 fl (35.1-43.9); Red Blood Count 4.39 M/mm3 (4.2-5.4); White Blood Count 5.1 K/mm3 (4.4-11.0)
[2023-09-12 06:56] LABS: ALB/GLOB Ratio 0.9 RATIO (0.9-2.4); AST(SGOT) 11 U/L (15-37); Alanine Aminotransfer ALT/SGPT 19 U/L (13-56); Albumin, Serum 3.2 g/dL (3.2-5.0); Alkaline Phosphatase 68 U/L (45-117); Anion Gap 8 (5-15); BUN 11 mg/dL (7-18); BUN/Creat Ratio 20.2 RATIO (10-20); Chloride 106 mmol/L (98-107); Creatinine, Serum 0.54 mg/dL (0.55-1.02); EST Glomerular Filtration Rate 118 mL/min (>60); Est Glom Filt Rate - Afr Amer 143 mL/min (>60); Estimated Creatinine Clearance 72.38 ml/min; Globulin 3.6 g/dL (2.2-4.2); Glucose 130 mg/dL (74-106); Magnesium 2.4 mg/dL (1.6-2.6); Phosphorus 3.5 mg/dL (2.5-4.9); Protein, Total 6.8 g/dL (6.4-8.2); Sodium Level 141 mmol/L (136-145)
--- NOTE | 2023-09-12 07:42 | PN.HOSP_ITS ---
Reason for Visit Reason for Visit: Diagnoses Cellulitis of right lower limb (09/11/23) Elevated blood-pressure reading, without diagnosis of hypertension (09/11/23) Subjective Subjective Patient is a 68-year-old lady sent to the ED from the wound care center with right AKA cellulitis Objective Data Objective Data Vital Signs: Vital Signs Temp Pulse Resp BP Pulse Ox O2 Del Method 97.8 F 66 16 122/70 H 100 Room Air 09/12/23 02:10 09/12/23 02:10 09/12/23 02:10 09/12/23 02:10 09/12/23 02:10 09/12/23 02:10 Oxygen Delivery Method Room Air Weight: 77.9 kg Body Mass Index (BMI) 26.9 Intake & Output: Intake and Output for Last 24 Hours 09/10/23 09/11/23 09/12/23 23:59 23:59 23:59 Intake Total 312 / 312 50 / 50 Balance 312 / 312 50 / 50 Lab / Micro Data 09/12/23 05:24 09/12/23 05:24 Labs: Laboratory Results - last 24 hr 09/11/23 12:20: WBC 7.7, RBC 4.60, Hgb 13.0, Hct 39.9, MCV 86.7, MCH 28.3, MCHC 32.6, RDW Std Deviation 41.1, RDW Coeff of Criselda 13.2, Plt Count 212, MPV 9.3, Immature Gran % (Auto) 0.400, Neut % (Auto) 78.2 H, Lymph % (Auto) 12.3 L, [place] % (Auto) 8.3, Eos % (Auto) 0.5, Baso % (Auto) 0.3, Absolute Neuts (auto) 6.1, Absolute Lymphs (auto) 0.95, Nucleated RBC % 0, Sodium 137, Potassium 3.8, Chloride 107, Carbon Dioxide 26.0, Anion Gap 4 L, BUN 11, Creatinine 0.51 L, Estim Creat Clear Calc 75.18, Est GFR (MDRD) Af Amer 153, Est GFR (MDRD) Non-Af 127, BUN/Creatinine Ratio 21.5 H, Glucose 115 H, Calcium 9.8 09/11/23 17:03: MRSA (PCR) Negative 09/12/23 05:24: WBC 5.1, RBC 4.39, Hgb 12.3, Hct 38.2, MCV 87.0, MCH 28.0, MCHC 32.2, RDW Std Deviation 42.2, RDW Coeff of Criselda 13.2, Plt Count 187, MPV 9.4, Immature Gran % (Auto) 0.400, Neut % (Auto) 59.8, Lymph % (Auto) 27.1, [place] % (Auto) 9.2, Eos % (Auto) 2.9, Baso % (Auto) 0.6, Absolute Neuts (auto) 3.0, Absolute Lymphs (auto) 1.38, Nucleated RBC % 0, Sodium 141, Potassium 4.0, Chloride 106, Carbon Dioxide 27.0, Anion Gap 8, BUN 11, Creatinine 0.54 L, Estim Creat Clear Calc 72.38, Est GFR (MDRD) Af Amer 143, Est GFR (MDRD) Non-Af 118, BUN/Creatinine Ratio 20.2 H, Glucose 130 H, Calcium 9.0, Phosphorus 3.5, Magnesium 2.4, Total Bilirubin 0.50, AST 11 L, ALT 19, Alkaline Phosphatase 68, Total Protein 6.8, Albumin 3.2, Globulin 3.6, Albumin/Globulin Ratio 0.9 Radiography Diagnostic Testing: Radiology Impression Pelvis CT 09/11/23 13:34 IMPRESSION: 1. Mild soft tissue swelling and edema of the medial aspect of the right groin with possible adjacent soft tissue ulceration. No evidence of drainable abscess. 2. Partially visualized soft tissue swelling and edema about the visualized mid right thigh is not entirely excluded on this exam. 3. Small right inguinal hernia containing fat. Electronically Signed: Tab Gunn MD at 14:50 EST , Physical Exam Narrative GENERAL: cooperative HEENT: Atraumatic; normocephalic EYES; Anicteric, Normal Conjunctiva NECK; supple, normal thyroid, RESPIRATORY: Diminished to auscultation CARDIOVASCULAR: Regular S1 S2, GI: soft, normoactive bowel sounds, : No Renal angle tenderness; EXTREMITIES: Right AKA, in surgical dressing with a small puncture room in the right groin with some scar tissue MUSCULOSKELETAL: no muscle wasting NEURO: Awake; no lateralizing signs. SKIN: No Rash PSYCH; Flat affect Assessment & Plan Assessment/Plan (1) Cellulitis of right thigh: (2) Elevated blood pressure reading: PLAN: Plan Patient is a 68-year-old lady sent to the ED from the wound care center with right AKA cellulitis 1. Right AKA cellulitis ? Admitted to regular nursing floor cultures obtained. Patient started on Zosyn as well as vancomycin 2. Right groin wound ? Consult placed to wound care nurse 3. Hypertension - Blood pressure controlled, home medications continued with dose adjustment as needed 4. GERD -Continue home famotidine 5. Dyslipidemia -Patient is on statin therapy, continued at home dose 6. History of right lower extremity melanoma -Diagnosed in the 1970s, Treated with amputation and radiation 7. DVT prophylaxis -Lovenox subcu CODE STATUS -Full code Time spent in the patient's overall evaluation,decision-making process, review of diagnostic data, adjustment of management, discussion with other providers, nursing nursing and ancillary staff involved in patient's care documentation, 36 Minutes Charges/Coding Visit Charges Inpatient E&M: 77940 Subs Hosp L2
[2023-09-12 08:18] VITALS: BP 119/76; PULSE 78; RESP 16; TEMP 36.8; O2SAT 96
[2023-09-12] MEDS: Enoxaparin 40 MG/0.4 ML Syringe SC (08:29)
[2023-09-12] MEDS: Cholecalciferol (VIT D3) 25 MCG TABLET (1,000 UNITS) 50 MCG PO (08:29)
[2023-09-12] MEDS: Calcium (Elemental) 500 MG Tablet 1000 MG PO (08:30)
--- NOTE | 2023-09-12 08:34 | WOUNDNOTE ---
wound photo: right groin
--- NOTE | 2023-09-12 11:20 | CASEMGMT ---
DAILY SARMIENTO Assessment: Face to Face with pt for initial transition planning/care coordination assessment. DAILY SARMIENTO introduced self and role at [facility], pt voices understanding and consents to assessment. Pt is A&O x4 and answers all questions appropriately at this time. Pt sitting up in chair eating lunch in no distress. Care providers, pharmacy, and demographics verified/updated. Admitting Dx: cellulitis PCP:Quinn Cruz Specialists:Neal/Laura Akbar- DEEPA; Emily, derm; Preferred Pharmacy: [facility] Retail Insurance: [facility], MMO Prescription Benefit: yes LNOK: Beatrice Cuevas, Living Arrangements: Pt lives in a 3 story home with no steps to enter. Pt has 7 steps upstairs and 4 steps downstairs. Pt states there is railings on both sides and she denies concerns maneuvering these. Pt denies concerns at home. Transportation: Pt drives self and denies concerns with transportation. DME:crutches, cane, dressing supplies obtained from [employer] or [employer] HHC/SNF: Pt has had HHC in the past many years ago, denies SNF stays. Pt states no concerns with going home at time of dc. She states she uses her prosthetic most all day. She goes to the wound center at [facility] every week or every 2 wks. Pt does her own dressing changes to the groin daily unless she has a [facility] appt. She states she is indep in this dressing change and denies need for any nursing in the home. Pt states no further concerns/needs. CM to follow. Advised pt to ask CM if any further question/concerns/needs arise, voices understanding. Pt Goal: Home Plan: Home Shayy AMBROSIO CM
[2023-09-12 15:24] VITALS: BP 129/75; PULSE 77; RESP 16; TEMP 36.5; O2SAT 100
[2023-09-12 20:30] VITALS: BP 131/70; PULSE 73; RESP 16; TEMP 36.6; O2SAT 100
[2023-09-12] MEDS: Famotidine 20 MG Tablet PO (21:24)
[2023-09-12] MEDS: Pravastatin 20 MG Tablet PO (21:24)
[2023-09-13 02:10] VITALS: BP 107/51; PULSE 67; RESP 16; TEMP 36.6; O2SAT 98
[2023-09-13] MEDS: Piperacil/Tazobactam 3.375 GM in 0.9% Normal Saline (50mL MB+) 50 ML IV ×3 (05:13→23:59)
[2023-09-13] MEDS: Acetaminophen 500 MG Tablet 1000 MG PO ×3 (05:14→21:05)
[2023-09-13 06:14] LABS: Absolute Lymphocyte Count 1.69 X10^3/uL (0.83-4.51); Absolute Neutrophil Count 2.9 X10^3/uL (2.0-7.7); Basophil# 0.03 X10^3/uL; Basophil% 0.6 % (0-1); Eosinophils% 3.7 % (0-5); Hematocrit 40.2 % (37-47); Hemoglobin 12.9 g/dL (12.0-15.0); Lymphocyte # 1.69 X10^3/ul (0.83-4.51); Lymphocyte % 31.6 % (19-41); Mean Corp Hgb Conc 32.1 g/dL (32-36); Mean Corpuscular Hgb 28.2 pg (27.0-32.0); Mean Platelet Vol. 9.4 fl (6.2-12.0); Monocyte# 0.51 X10^3/uL; Monocyte% 9.6 % (0-10); NRBC Flagged by Analyzer 0 % (0-5); Neutrophil # 2.89 X10^3/uL (2.7-7.7); Neutrophil % 54.1 % (47-70); Platelet Count 228 K/mm3 (150-450); RBC Distribution Width CV 13.2 % (11.6-14.6); RBC Distribution Width SD 42.3 fl (35.1-43.9); Red Blood Count 4.57 M/mm3 (4.2-5.4); White Blood Count 5.3 K/mm3 (4.4-11.0)
[2023-09-13 06:29] LABS: Anion Gap 5 (5-15); BUN 15 mg/dL (7-18); BUN/Creat Ratio 23.7 RATIO (10-20); Chloride 108 mmol/L (98-107); Creatinine, Serum 0.63 mg/dL (0.55-1.02); EST Glomerular Filtration Rate 99 mL/min (>60); Est Glom Filt Rate - Afr Amer 120 mL/min (>60); Estimated Creatinine Clearance 72.38 ml/min; Glucose 125 mg/dL (74-106); Magnesium 2.4 mg/dL (1.6-2.6); Sodium Level 142 mmol/L (136-145)
--- NOTE | 2023-09-13 07:14 | PN.HOSP_ITS ---
Reason for Visit Reason for Visit: Diagnoses Cellulitis of right lower limb (09/11/23) Elevated blood-pressure reading, without diagnosis of hypertension (09/11/23) Subjective Subjective Patient seen had a relatively uneventful night. Wound cultures so far positive for staph species as well as a gram-positive organisms final identification and sensitivities pending Objective Data Objective Data Vital Signs: Vital Signs Temp Pulse Resp BP Pulse Ox O2 Del Method 97.9 F 67 16 107/51 L 98 Room Air 09/13/23 02:10 09/13/23 02:10 09/13/23 02:10 09/13/23 02:10 09/13/23 02:10 09/13/23 02:10 Oxygen Delivery Method Room Air Weight: 77.9 kg Body Mass Index (BMI) 26.9 Intake & Output: Intake and Output for Last 24 Hours 09/11/23 09/12/23 09/13/23 23:59 23:59 23:59 Intake Total 312 / 312 1300 / 1300 50 / 50 Balance 312 / 312 1300 / 1300 50 / 50 Lab / Micro Data 09/13/23 05:30 09/13/23 05:30 Labs: Laboratory Results - last 24 hr 09/13/23 05:30: WBC 5.3, RBC 4.57, Hgb 12.9, Hct 40.2, MCV 88.0, MCH 28.2, MCHC 32.1, RDW Std Deviation 42.3, RDW Coeff of Criselda 13.2, Plt Count 228, MPV 9.4, Immature Gran % (Auto) 0.400, Neut % (Auto) 54.1, Lymph % (Auto) 31.6, [place] % (Auto) 9.6, Eos % (Auto) 3.7, Baso % (Auto) 0.6, Absolute Neuts (auto) 2.9, Absolute Lymphs (auto) 1.69, Nucleated RBC % 0, Sodium 142, Potassium 5.0, Chloride 108 H, Carbon Dioxide 29.0, Anion Gap 5, BUN 15, Creatinine 0.63, Estim Creat Clear Calc 72.38, Est GFR (MDRD) Af Amer 120, Est GFR (MDRD) Non-Af 99, BUN/Creatinine Ratio 23.7 H, Glucose 125 H, Calcium 9.0, Phosphorus 4.0, Magnesium 2.4 Physical Exam Narrative GENERAL: cooperative HEENT: Atraumatic; normocephalic EYES; Anicteric, Normal Conjunctiva NECK; supple, normal thyroid, RESPIRATORY: Diminished to auscultation CARDIOVASCULAR: Regular S1 S2, GI: soft, normoactive bowel sounds, : No Renal angle tenderness; EXTREMITIES: Right AKA, in surgical dressing with a small puncture room in the right groin with some scar tissue MUSCULOSKELETAL: no muscle wasting NEURO: Awake; no lateralizing signs. SKIN: No Rash PSYCH; Flat affect Assessment & Plan Assessment/Plan (1) Cellulitis of right thigh: (2) Elevated blood pressure reading: PLAN: Plan Patient is a 68-year-old lady sent to the ED from the wound care center with right AKA cellulitis 1. Right AKA cellulitis ? Admitted to regular nursing floor cultures obtained. Patient started on Zosyn as well as vancomycin ? 09/13/2023;Patient seen had a relatively uneventful night. Wound cultures so far positive for staph species as well as a gram-positive organisms final identification and sensitivities pending 2. Right groin wound ? Consult placed to wound care nurse 3. Hypertension - Blood pressure controlled, home medications continued with dose adjustment as needed 4. GERD -Continue home famotidine 5. Dyslipidemia -Patient is on statin therapy, continued at home dose 6. History of right lower extremity melanoma -Diagnosed in the 1970s, Treated with amputation and radiation 7. DVT prophylaxis -Lovenox subcu CODE STATUS -Full code Time spent in the patient's overall evaluation,decision-making process, review of diagnostic data, adjustment of management, discussion with other providers, nursing nursing and ancillary staff involved in patient's care documentation, 36 Minutes Charges/Coding Visit Charges Inpatient E&M: 17301 Subs Hosp L2
[2023-09-13] MEDS: Enoxaparin 40 MG/0.4 ML Syringe SC (10:15)
[2023-09-13] MEDS: Vancomycin HCl 1,250 MG in 0.9% Normal Saline (250mL Bag) 250 ML 167 MG IV (10:15)
[2023-09-13] MEDS: Cholecalciferol (VIT D3) 25 MCG TABLET (1,000 UNITS) 50 MCG PO (10:16)
[2023-09-13] MEDS: Calcium (Elemental) 500 MG Tablet 1000 MG PO (10:16)
[2023-09-13] MEDS: amLODIPine 5 MG Tablet PO (10:16)
[2023-09-13 10:22] VITALS: BP 117/59; PULSE 79; RESP 16; TEMP 36.8; O2SAT 98
--- NOTE | 2023-09-13 10:35 | PCM.RX.CS ---
Consult Antibiotic Management Pharmacy has been consulted to manage selected antibiotic: Vancomycin Type of Intervention Type of Consult: New start Suspected Infection Suspected Infection: Skin/Soft tissue Labs Labs: Sodium 142 mmol/L (136-145) 09/13/23 05:30 Potassium 5.0 mmol/L (3.5-5.1) 09/13/23 05:30 Chloride 108 mmol/L (98-107) H 09/13/23 05:30 Carbon Dioxide 29.0 mmol/L (21.0-32.0) 09/13/23 05:30 Anion Gap 5 (5-15) 09/13/23 05:30 BUN 15 mg/dL (7-18) 09/13/23 05:30 Creatinine 0.63 mg/dL (0.55-1.02) 09/13/23 05:30 Est GFR (MDRD) Af Amer 120 mL/min (>60) 09/13/23 05:30 Est GFR (MDRD) Non-Af 99 mL/min (>60) 09/13/23 05:30 BUN/Creatinine Ratio 23.7 RATIO (10-20) H 09/13/23 05:30 Glucose 125 mg/dL (74-106) H 09/13/23 05:30 Microbiology Microbiology: Microbiology 09/11/23 13:02 Blood Culture (Wb) - Right Hand Blood Culture - Preliminary No growth in 48 hours. 09/11/23 12:55 Blood Culture (Wb) - Anticubital Left Blood Culture - Preliminary No growth in 48 hours. Dosing Weight Weight used for dosin.9 kg Estimated Creatinine Clearance Estimated Creatinine Clearance: 72 ML/MIN Goal Trough Goal Trough: 10-15 mcg/mL Pharmacy Plan for Drug Dosing Pharmacy Plan for Drug Dosing: Give standard initial dose of 1250mg IV x1, then continue with 750mg IV q12h per [facility] dosing protocol. Will check a trough before the 4th total dose. Pharmacy Service will continue to monitor and adjust dosing as required. Follow-Up Labs Follow-Up Labs: Trough: Vancomycin Date/Time Labs Ordered Labs to be done on [date and time ordered]: 09/14/23 21:30
[2023-09-13 16:00] VITALS: BP 140/77; PULSE 88; RESP 14; TEMP 37.1; O2SAT 97
[2023-09-13 20:29] VITALS: BP 134/71; PULSE 75; RESP 15; TEMP 36.7; O2SAT 100
[2023-09-13] MEDS: Vancomycin HCl 750 MG in 0.9% Normal Saline (250mL Bag) 250 ML 250 MG IV (21:05)
[2023-09-13] MEDS: Famotidine 20 MG Tablet PO (21:05)
[2023-09-13] MEDS: Pravastatin 20 MG Tablet PO (21:05)
[2023-09-13 22:00] VITALS: RESP 15
[2023-09-14 04:00] VITALS: BP 113/55; PULSE 78; RESP 15; TEMP 36.9; O2SAT 100
[2023-09-14] MEDS: Acetaminophen 500 MG Tablet 1000 MG PO ×2 (06:32→14:14)
[2023-09-14] MEDS: Piperacil/Tazobactam 3.375 GM in 0.9% Normal Saline (50mL MB+) 50 ML IV (06:33)
[2023-09-14 06:35] LABS: Absolute Lymphocyte Count 1.47 X10^3/uL (0.83-4.51); Absolute Neutrophil Count 2.8 X10^3/uL (2.0-7.7); Basophil# 0.04 X10^3/uL; Eosinophil# 0.17 X10^3/uL; Hematocrit 40.2 % (37-47); Hemoglobin 12.9 g/dL (12.0-15.0); Lymphocyte # 1.47 X10^3/ul (0.83-4.51); Mean Corp Hgb Conc 32.1 g/dL (32-36); Mean Corpuscular Hgb 28.5 pg (27.0-32.0); Mean Corpuscular Volume 88.7 fL (81-99); Mean Platelet Vol. 10.3 fl (6.2-12.0); Monocyte# 0.41 X10^3/uL; NRBC Flagged by Analyzer 0 % (0-5); Neutrophil # 2.78 X10^3/uL (2.7-7.7); POSITIVE COUNT YES; Platelet Count 194 K/mm3 (150-450); RBC Distribution Width CV 13.2 % (11.6-14.6); RBC Distribution Width SD 43.1 fl (35.1-43.9); Red Blood Count 4.53 M/mm3 (4.2-5.4); White Blood Count 4.9 K/mm3 (4.4-11.0)
[2023-09-14 06:40] LABS: Differential Indicated SCAN CRITERIA MET
[2023-09-14 07:19] LABS: Anion Gap 7 (5-15); BUN 12 mg/dL (7-18); BUN/Creat Ratio 19.8 RATIO (10-20); Calcium,Total 8.7 mg/dL (8.5-10.1); Chloride 109 mmol/L (98-107); EST Glomerular Filtration Rate 105 mL/min (>60); Est Glom Filt Rate - Afr Amer 126 mL/min (>60); Estimated Creatinine Clearance 72.38 ml/min; Glucose 112 mg/dL (74-106); Potassium 4.8 mmol/L (3.5-5.1); Sodium Level 141 mmol/L (136-145)
[2023-09-14 08:28] LABS: Scan Smear per Review Criteria MANUAL DIFF
[2023-09-14 08:32] LABS: Total Cells Counted 100 (MANUAL DIFF)
[2023-09-14 08:34] LABS: Anisocytosis 2+; Platelet Estimate ADEQUATE (ADEQ)
[2023-09-14 08:46] LABS: Eosinophil 3 % (0-5); Lymphocyte 39 % (19-41); Monocyte 6 % (0-10); Neutrophil-Band 1 % (0-5); Neutrophil-Segmented 51 % (47-70)
--- NOTE | 2023-09-14 08:52 | PCM.PN.HOSP ---
Reason for Visit Reason for Visit: Diagnoses Cellulitis of right lower limb (09/11/23) Elevated blood-pressure reading, without diagnosis of hypertension (09/11/23) Subjective Subjective Patient seen did review cultures. Consult was placed to ID to streamline antibiotic therapy and Objective Data Objective Data Vital Signs: Vital Signs Temp Pulse Resp BP Pulse Ox O2 Del Method 98.4 F 78 15 113/55 L 100 Room Air 09/14/23 04:00 09/14/23 04:00 09/14/23 04:00 09/14/23 04:00 09/14/23 04:00 09/14/23 04:00 Oxygen Delivery Method Room Air Weight: 77.9 kg Body Mass Index (BMI) 26.9 Intake & Output: Intake and Output for Last 24 Hours 09/12/23 09/13/23 09/14/23 23:59 23:59 23:59 Intake Total 1300 / 1300 690 / 890 450 / 450 Balance 1300 / 1300 690 / 890 450 / 450 Lab / Micro Data Attestation: I reviewed the patient's lab results. 09/14/23 05:22 09/14/23 05:22 Labs: Laboratory Results - last 24 hr 09/14/23 05:22: WBC 4.9, RBC 4.53, Hgb 12.9, Hct 40.2, MCV 88.7, MCH 28.5, MCHC 32.1, RDW Std Deviation 43.1, RDW Coeff of Criselda 13.2, Plt Count 194, MPV 10.3, Immature Gran % (Auto) LABOR RELATIONS CONSULTANT, Neut % (Auto) LABOR RELATIONS CONSULTANT, Lymph % (Auto) LABOR RELATIONS CONSULTANT, [place] % (Auto) LABOR RELATIONS CONSULTANT, Eos % (Auto) LABOR RELATIONS CONSULTANT, Baso % (Auto) LABOR RELATIONS CONSULTANT, Absolute Neuts (auto) 2.8, Absolute Lymphs (auto) 1.47, Total Counted 100, Neutrophils % (Manual) 51, Band Neutrophils % 1, Lymphocytes % (Manual) 39, Monocytes % (Manual) 6, Eosinophils % (Manual) 3, Other Cells % Not Reportable, Nucleated RBC % 0, Diff Path Review LABOR RELATIONS CONSULTANT, Platelet Estimate ADEQUATE, Hypochromasia LABOR RELATIONS CONSULTANT, Anisocytosis 2+, Sodium 141, Potassium 4.8, Chloride 109 H, Carbon Dioxide 25.0, Anion Gap 7, BUN 12, Creatinine 0.60, Estim Creat Clear Calc 72.38, Est GFR (MDRD) Af Amer 126, Est GFR (MDRD) Non-Af 105, BUN/Creatinine Ratio 19.8, Glucose 112 H, Calcium 8.7 Micro: Microbiology 09/11/23 13:02 Blood Culture (Wb) - Right Hand Blood Culture - Preliminary No growth in 48 hours. 09/11/23 12:55 Blood Culture (Wb) - Anticubital Left Blood Culture - Preliminary No growth in 48 hours. Physical Exam Narrative GENERAL: cooperative HEENT: Atraumatic; normocephalic EYES; Anicteric, Normal Conjunctiva NECK; supple, normal thyroid, RESPIRATORY: Diminished to auscultation CARDIOVASCULAR: Regular S1 S2, GI: soft, normoactive bowel sounds, : No Renal angle tenderness; EXTREMITIES: Right AKA, in surgical dressing with a small puncture room in the right groin with some scar tissue MUSCULOSKELETAL: no muscle wasting NEURO: Awake; no lateralizing signs. SKIN: No Rash PSYCH; Flat affect Assessment & Plan Assessment/Plan (1) Cellulitis of right thigh: (2) Elevated blood pressure reading: PLAN: Plan Patient is a 68-year-old lady sent to the ED from the wound care center with right AKA cellulitis 1. Right AKA cellulitis ? Admitted to regular nursing floor cultures obtained. Patient started on Zosyn as well as vancomycin ? 09/13/2023;Patient seen had a relatively uneventful night. Wound cultures so far positive for staph species as well as a gram-positive organisms final identification and sensitivities pending ? 09/14/2023; patient wound cultures positive for strep isolated, corynebacterium stratum, coagulase negative staph as well as staphylococcal aureus. Remains on broad-spectrum antibiotic therapy consult placed to ID regarding final antibiotic therapy 2. Right groin wound ? Consult placed to wound care nurse 3. Hypertension - Blood pressure controlled, home medications continued with dose adjustment as needed 4. GERD -Continue home famotidine 5. Dyslipidemia -Patient is on statin therapy, continued at home dose 6. History of right lower extremity melanoma -Diagnosed in the 1970s, Treated with amputation and radiation 7. DVT prophylaxis -Lovenox subcu CODE STATUS -Full code Time spent in the patient's overall evaluation,decision-making process, review of diagnostic data, adjustment of management, discussion with other providers, nursing nursing and ancillary staff involved in patient's care documentation, 36 Minutes Charges/Coding Visit Charges Inpatient E&M: 48738 Subs Hosp L2
[2023-09-14] MEDS: Cholecalciferol (VIT D3) 25 MCG TABLET (1,000 UNITS) 50 MCG PO (09:33)
[2023-09-14] MEDS: amLODIPine 5 MG Tablet PO (09:33)
[2023-09-14] MEDS: Calcium (Elemental) 500 MG Tablet 1000 MG PO (09:33)
[2023-09-14] MEDS: Enoxaparin 40 MG/0.4 ML Syringe SC (09:34)
[2023-09-14 10:00] VITALS: BP 137/72; PULSE 84; RESP 16; TEMP 36.6; O2SAT 99
[2023-09-14] MEDS: Vancomycin HCl 750 MG in 0.9% Normal Saline (250mL Bag) 250 ML 250 MG IV (10:49)
--- NOTE | 2023-09-14 13:55 | PCM.CONS.GEN ---
Assessment & Plan Assessment/Plan (1) Cellulitis of right thigh: PLAN: With chronic ulcer involvement. Wound cx with staph aureus, corynebacter, CoNS x2, and GBS. Ok for home with 8 more days po doxy and augmentin. 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 Had several days fever, chills, then progressive R groin pain, redness, swelling. Sent to hospital, admitted on vanc/zosyn, sx rapidly improved. No n/v/d. Full ROS performed and neg except as noted above. 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 Radiation injury Soft tissue radionecrosis Home Medications famotidine 20 mg tablet 20 mg PO QHS 06/20/17 [History Last Taken Unknown] pravastatin 20 mg tablet 20 mg PO QHS 90 days ##90 12/26/17 [History Last Taken Unknown] acetaminophen 650 mg tablet,extended release (8 Hour Pain Reliever) 1,300 mg PO Q8H PRN pain 09/11/23 [History Last Taken Unknown] calcium carbonate 600 mg calcium (1,500 mg) tablet (Calcium) 1,200 mg PO DAILY 09/11/23 [History Last Taken Unknown] cholecalciferol (vitamin D3) 50 mcg (2,000 unit) tablet (Vitamin D3) 2,000 unit PO DAILY 09/11/23 [History Last Taken Unknown] amoxicillin 875 mg-potassium clavulanate 125 mg tablet 1 tab PO BID #16 tabs 09/14/23 [Rx Last Taken Unknown] doxycycline hyclate 100 mg capsule 100 mg PO BID #16 caps 09/14/23 [Rx Last Taken Unknown] Allergy/AdvReac Type Severity Reaction Status Date / Time No Known Allergies Allergy Verified 09/11/23 11:27 Family History Other Heart disease Hypertension Surgical History (Updated 09/11/23 @ 16:18 by Huong Chapman) History of appendectomy Hx of AKA (above knee amputation) Social History Smoking Status: Former smoker alcohol intake: current alcohol intake frequency: holidays/special occasions only Physical Exam Const alert, oriented x3 and no apparent distress General Appearance: cooperative HEENT normocephalic and head/scalp atraumatic Eyes PERRL and EOMs intact bilaterally Neck supple and No nodes Resp normal air movement and clear to auscultation bilaterally Cardio regular rate and regular rhythm GI soft to palpation, non-tender and non-distended Extremity General Extremity: Negative for edema Skin Skin Narrative: R groin fading erythema Neuro CN's II-XII intact bilaterally Lab / Micro Data Attestation: I reviewed the patient's lab results. 09/14/23 05:22 09/14/23 05:22 Labs: Laboratory Results - last 24 hr 09/14/23 05:22: WBC 4.9, RBC 4.53, Hgb 12.9, Hct 40.2, MCV 88.7, MCH 28.5, MCHC 32.1, RDW Std Deviation 43.1, RDW Coeff of Criselda 13.2, Plt Count 194, MPV 10.3, Immature Gran % (Auto) DIRECTOR CALL, Neut % (Auto) DIRECTOR CALL, Lymph % (Auto) DIRECTOR CALL, [place] % (Auto) DIRECTOR CALL, Eos % (Auto) DIRECTOR CALL, Baso % (Auto) DIRECTOR CALL, Absolute Neuts (auto) 2.8, Absolute Lymphs (auto) 1.47, Total Counted 100, Neutrophils % (Manual) 51, Band Neutrophils % 1, Lymphocytes % (Manual) 39, Monocytes % (Manual) 6, Eosinophils % (Manual) 3, Other Cells % Not Reportable, Nucleated RBC % 0, Diff Path Review DIRECTOR CALL, Platelet Estimate ADEQUATE, Hypochromasia DIRECTOR CALL, Anisocytosis 2+, Sodium 141, Potassium 4.8, Chloride 109 H, Carbon Dioxide 25.0, Anion Gap 7, BUN 12, Creatinine 0.60, Estim Creat Clear Calc 72.38, Est GFR (MDRD) Af Amer 126, Est GFR (MDRD) Non-Af 105, BUN/Creatinine Ratio 19.8, Glucose 112 H, Calcium 8.7 Micro: Microbiology 09/11/23 13:02 Blood Culture (Wb) - Right Hand Blood Culture - Preliminary No growth in 48 hours. 09/11/23 12:55 Blood Culture (Wb) - Anticubital Left Blood Culture - Preliminary No growth in 48 hours.
--- NOTE | 2023-09-14 14:19 | PCM.DC.SUM ---
Providers Date of Admission: 09/11/23 Date of Discharge: 09/14/23 Primary Care Physician: Dr. Quinn Cruz MD Consultations 09/11/23 16:16 Consult: Onc/Wound/physical design engineer Routine Comment: Reason for Consult:: R groin wound Comments:: please donovan bandage R stump 09/13/23 10:04 Consult: Infectious Disease Routine Consulting Provider: Anibal Cleary Reason for Consult: cellultitis, + cultures with staph species,and gram-positive organism EMERGENT Consult: No MD Notified: Yes Date Notified: 09/13/23 Time Notified: 10:05 Method of Notification: Text 09/13/23 10:28 Consult: Infectious Disease Routine Consulting Provider: Anibal Cleary Reason for Consult: Right AKA stump and groin infection EMERGENT Consult: No MD Notified: No Date Notified: 09/13/23 Time Notified: 10:28 Reason For Visit: CELLULITIS Diagnosis Discharge Diagnosis (1) Cellulitis of right thigh: Status: Acute Code(s): L03.115 - Cellulitis of right lower limb (2) History of melanoma: Status: Chronic Code(s): Z85.820 - Personal history of malignant melanoma of skin Plan Patient is a 68-year-old lady sent to the ED from the wound care center with right AKA cellulitis 1. Right AKA cellulitis ? Admitted to regular nursing floor cultures obtained. Patient started on Zosyn as well as vancomycin ? 09/13/2023;Patient seen had a relatively uneventful night. Wound cultures so far positive for staph species as well as a gram-positive organisms final identification and sensitivities pending ? 09/14/2023; patient wound cultures positive for strep isolated, corynebacterium stratum, coagulase negative staph as well as staphylococcal aureus. Remains on broad-spectrum antibiotic therapy consult placed to ID regarding final antibiotic therapy ? Patient was seen in consultation by Dr. Cleary recommended discharge with amoxicillin as well as doxycycline 2. Right groin wound ? Consult placed to wound care nurse 3. Hypertension - Blood pressure controlled, home medications continued with dose adjustment as needed 4. GERD -Continue home famotidine 5. Dyslipidemia -Patient is on statin therapy, continued at home dose 6. History of right lower extremity melanoma -Diagnosed in the 1970s, Treated with amputation and radiation 7. DVT prophylaxis -Lovenox subcu CODE STATUS -Full code Time spent in the patient's overall evaluation,decision-making process, review of diagnostic data, adjustment of management, discussion with other providers, nursing nursing and ancillary staff involved in patient's care documentation, 36 Minutes Medications at Discharge Home Medications famotidine 20 mg tablet 20 mg PO QHS 06/20/17 pravastatin 20 mg tablet 20 mg PO QHS 90 days ##90 12/26/17 acetaminophen 650 mg tablet,extended release (8 Hour Pain Reliever) 1,300 mg PO Q8H PRN pain 09/11/23 calcium carbonate 600 mg calcium (1,500 mg) tablet (Calcium) 1,200 mg PO DAILY 09/11/23 cholecalciferol (vitamin D3) 50 mcg (2,000 unit) tablet (Vitamin D3) 2,000 unit PO DAILY 09/11/23 amoxicillin 875 mg-potassium clavulanate 125 mg tablet 1 tab PO BID #16 tabs 09/14/23 doxycycline hyclate 100 mg capsule 100 mg PO BID #16 caps 09/14/23 Physical Exam Narrative GENERAL: cooperative HEENT: Atraumatic; normocephalic EYES; Anicteric, Normal Conjunctiva NECK; supple, normal thyroid, RESPIRATORY: Diminished to auscultation CARDIOVASCULAR: Regular S1 S2, GI: soft, normoactive bowel sounds, : No Renal angle tenderness; EXTREMITIES: Right AKA, in surgical dressing with a small puncture room in the right groin with some scar tissue MUSCULOSKELETAL: no muscle wasting NEURO: Awake; no lateralizing signs. SKIN: No Rash PSYCH; Flat affect Weight / BMI Weight Weight: 77.9 kg Body Mass Index (BMI) 26.9 ABG / Lab / Microbiology Data 09/14/23 05:22 09/14/23 05:22 Laboratory: Laboratory Results - last 24 hr 09/14/23 05:22: WBC 4.9, RBC 4.53, Hgb 12.9, Hct 40.2, MCV 88.7, MCH 28.5, MCHC 32.1, RDW Std Deviation 43.1, RDW Coeff of Criselda 13.2, Plt Count 194, MPV 10.3, Immature Gran % (Auto) INSTRUCTOR ADJUNCT PHARMACY TECHNICIAN, Neut % (Auto) INSTRUCTOR ADJUNCT PHARMACY TECHNICIAN, Lymph % (Auto) INSTRUCTOR ADJUNCT PHARMACY TECHNICIAN, [place] % (Auto) INSTRUCTOR ADJUNCT PHARMACY TECHNICIAN, Eos % (Auto) INSTRUCTOR ADJUNCT PHARMACY TECHNICIAN, Baso % (Auto) INSTRUCTOR ADJUNCT PHARMACY TECHNICIAN, Absolute Neuts (auto) 2.8, Absolute Lymphs (auto) 1.47, Total Counted 100, Neutrophils % (Manual) 51, Band Neutrophils % 1, Lymphocytes % (Manual) 39, Monocytes % (Manual) 6, Eosinophils % (Manual) 3, Other Cells % Not Reportable, Nucleated RBC % 0, Diff Path Review INSTRUCTOR ADJUNCT PHARMACY TECHNICIAN, Platelet Estimate ADEQUATE, Hypochromasia INSTRUCTOR ADJUNCT PHARMACY TECHNICIAN, Anisocytosis 2+, Sodium 141, Potassium 4.8, Chloride 109 H, Carbon Dioxide 25.0, Anion Gap 7, BUN 12, Creatinine 0.60, Estim Creat Clear Calc 72.38, Est GFR (MDRD) Af Amer 126, Est GFR (MDRD) Non-Af 105, BUN/Creatinine Ratio 19.8, Glucose 112 H, Calcium 8.7 Microbiology: Microbiology 09/11/23 13:02 Blood Culture (Wb) - Right Hand Blood Culture - Preliminary No growth in 48 hours. 09/11/23 12:55 Blood Culture (Wb) - Anticubital Left Blood Culture - Preliminary No growth in 48 hours. D/C Instructions Discharge Diet: No restrictions Discharge Activity: Return to Normal Activity Call your doctor if you observe: Fever of 101 or Higher, Shortness of breath, Fainting spells and Chest pain Meaningful Use Info Meaningful Use Diagnoses (Choose all that apply): None applicable Discharge Plan Admission Admit Date/Time: 09/11/23 15:36 Attending Provider: Beka Jansen Primary Care Provider: Quinn Cruz Consulting Providers: Soraida De Leon; Anibal Cleary Discharge Orders/Prescriptions Prescriptions: New doxycycline hyclate 100 mg capsule 100 mg PO BID Qty: 16 0RF amoxicillin-pot clavulanate 875-125 mg tablet 1 tab PO BID Qty: 16 0RF Continued pravastatin 20 mg tablet 20 mg PO QHS 90 Days Qty: 90 Patient Comments: TAKE 1 TABLET BY MOUTH DAILY AT BEDTIME famotidine 20 MG tablet 20 mg PO QHS cholecalciferol (vitamin D3) [Vitamin D3] 50 mcg (2,000 unit) tablet 2,000 unit PO DAILY calcium carbonate [Calcium 600] 600 mg calcium (1,500 mg) tablet 1,200 mg PO DAILY acetaminophen [8 Hour Pain Reliever] 650 mg tablet extended release 1,300 mg PO Q8H PRN (Reason: pain) Referrals / Follow Up: Quinn Cruz MD [Primary Care Provider] - Within 1 Week Disposition Disposition (needs filled in before D/C Order can be placed): Home, Self Care Charges/Coding Visit Charges Inpatient E&M: 55481 Disch Hosp >30min
[2023-09-14 14:20] VITALS: BP 126/78; PULSE 80; RESP 12; TEMP 36.6; O2SAT 100
--- NOTE | 2023-09-14 14:54 | CASEMGMT ---
DAILY SARMIENTO NOTE: Pt being discharged. RN CM to room. Pt sitting up in chair in room. Pt denies any discharge needs/concerns. Timbo BSN DAILY CM
== END 2023-09-14 16:38 | disposition home or self-care (01) | DRG 565 ==
LOC: ED 12:16 → MS3 15:03
PROVIDERS: Physician Assistant; Admitting Provider Internal Medicine; Emergency Provider Emergency Medicine; PCP Family Medicine; Visit Provider Internal Medicine
DX: T87.43 Infection of amputation stump, right lower extremity (principal); L03.115 Cellulitis of right lower limb; L97.112 Non-pressure chronic ulcer of right thigh with fat layer exposed; I10 Essential (primary) hypertension; E78.5 Hyperlipidemia, unspecified; K21.9 Gastro-esophageal reflux disease without esophagitis; B95.62 Methicillin resistant Staphylococcus aureus infection as the cause of diseases classified elsewhere; Z87.891 Personal history of nicotine dependence; Z79.899 Other long term (current) drug therapy; Z85.820 Personal history of malignant melanoma of skin; Z89.611 Acquired absence of right leg above knee
CPT/HCPCS: 11042; 36415; 72193; 80048; 80053; 83735; 84100; 85025; 87040; 87070; 87075; 87205; 87641; 94668; 99283; J7050; Q9967; A4216; J0295

== ENCOUNTER 2023-09-25 11:30 | Outpatient (RCR) | payer MEDICARE, OTHER, SELFPAY ==
[2023-09-08 00:27] VITALS: BP 153/74; PULSE 87; RESP 20; TEMP 36.2; BMI 29.8
[2023-09-11 10:12] VITALS: BP 152/86; PULSE 96; RESP 20; TEMP 37; BMI 29.8
--- NOTE | 2023-09-11 10:46 | PCM.WC.PN ---
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 The patient was diagnosed with melanoma of the right calf in the 1969's. The melanoma was metastatic to lymph nodes. The patient underwent excision of her melanoma with lymphadenectomy in the right groin. She also underwent lengthy radiation treatments at the [facility] in [place], [place]. Melanoma recurred, and the patient was subsequently treated with monoclonal antibodies in 1984. However, due to the presence of severe radiation injury, persisting open wounds in the right thigh, MRSA infection, and severe radiation injury to the right femoral artery, the patient subsequently required right above-knee amputation in 2002. 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 Treatment included local ulcer care and hyperbaric oxygen therapy. She underwent a total of nearly 90 treatments of hyperbaric oxygen therapy. It is known that she tolerated the therapies well, and derived significant benefit. 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 She has also undergone several more sessions of hyperbaric oxygen therapy. She also received a series of 10 EpiFix allografts in the course of previous treatment. Each of the patient's prior courses of treatment in our facility have been protracted, with difficulties encountered in achieving complete healing. Her most recent course of treatment ended with successful healing and discharge in February 2021. The patient presented at this time with a recurrence of her right groin ulceration, again thought to be secondary to soft tissue radiation injury. The ulceration recurred spontaneously approximately 2-3 weeks prior to her presentation. The patient indicates that her health history has not changed since she was last treated in our facility. Progress of Wound: Courtesy visit for Dr. De Jesus who is not in the office this week. Patient comes in today with complaints of low grade fevers on an off for 2-3 weeks. She states that the highest fever was 101.5 but the others have been around 100 and she will take tylenol and they will resolve. She also has a very erythematous and warm right AKA, clinically looks like cellulitis. She states that she noticed the redness over the past couple days. She does state that she has been feeling more tired than usual. Right groin has a superior and inferior ulcers that look stable. A wound culture was obtained today due to the cellulitis in the right AKA.? A positive culture will necessitate antibiotic therapy. Objective Data Objective Data Vital Signs: Vital Signs Temp Pulse Resp BP 98.6 F 96 20 H 152/86 H 09/11/23 10:12 09/11/23 10:12 09/11/23 10:12 09/11/23 10:12 Weight: 196 lb 1.696 oz Body Mass Index (BMI) 29.8 Charges/Coding Procedures Integumentary [id number]: [id number] Malinda subq tissue 20 sq cm/< Physical Exam Const alert and oriented x3 General Appearance: cooperative HEENT normocephalic Resp normal respiratory effort Effort and Inspection: able to speak in complete sentences Extremity Extremity Narrative: Right AKA erythematous and warm to palpation. Line drawn to leidy the area of redness. Skin Wound Narrative: Right groin superior ulcer that has a beefy pink base. No odor present. Right inferior groin ulcer cluster has a couple very small areas that have a pink base with a little bit of depth to them. There is thickened scar tissue between the inferior groin ulcer cluster. No erythema in the groin area. From previous documentation, it appears that these areas are stable, if not a little bit smaller in size. Neuro CN's II-XII intact bilaterally Psych affect normal Appearance: grossly normal Debridement Note Debridement Note Wound debrided: #11 -superior groin ulcer Laterality: Right Type of Debridement: Excisional debridement Anesthesia Used: 5% Lidocaine Gel Depth: Down to and including healthy tissue and in the subcutaneous layer Percentage of wound debrided: 100 Instrument Used: 5mm curette Tissue Removed: Non viable tissue and slough Severity: Fat Layer Exposed Amount of bleeding with debridement: Mild Bleeding Controlled with: Compression and gauze Patient tolerated procedure: Patient tolerated procedure well Post-Debridement Measurements and Additional Note: Post-Debridement Measurements/Treatment KISHA - Nurse 1 - General Ulcer Assessment Start: 09/11/23 10:10 Freq: Status: Active Protocol: MICHAEL Activity Type Activity Date Activity User E-sign Co-sign Detail Recorded Client Recorded Date Recorded By Document 09/11/23 10:12 DL Desktop 09/11/23 10:20 DL 09/11/23 10:12 WC - Today's Visit Information Type of service Follow-up 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/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 ) Arrival Mode Ambulatory Transfer Assistance None Patient Identification Verified (Name & Yes ) Patient Requires Transmission-Based No Precautions Height and Weight Body Mass Index (BMI) 29.8 BMI Classification Overweight Vital Signs Temperature (97.8 F-99.1 F) 98.6 F Temperature Source Temporal Pulse Rate (60-100) 96 Pulse Location Monitor Respiratory Rate (12-18) 20 H Respiratory rate source Observation Blood Pressure (90/60-120/80) 152/86 H Blood Pressure Mean (mm Hg) 108 Source Monitor History Since Last Visit- (Skip if this is Patient's initial visit) Have you changed medications since your No last visit? Any new allergies or adverse reactions No Had a fall/change in ADL's that may No increase risk of falls Signs or symptoms of abuse and/or No neglect since last visit Have you been in the hospital since your No last visit? Has dressing in place as prescribed Yes Has compression in place as prescribed N/A Has offloadiing in place as prescribed Yes Experienced any changes in pain level or No management Pain Scale: 0-10 Numeric Is Patient Pain Free? Yes - Nurse 1 - General Ulcer Measurement Start: 09/11/23 10:10 Freq: Status: Active Protocol: Activity Type Activity Date Activity User E-sign Co-sign Detail Recorded Client Recorded Date Recorded By Document 09/11/23 10:12 DL Desktop 09/11/23 10:20 DL Edit Result 09/11/23 10:12 DL (1) Desktop 09/11/23 10:22 DL (1) #12- R GROIN INFERIOR CLUSTER - Wound Comment(s) => R Stump red and warm, Pt c/o temps off and on for last 3 weeks. 09/11/23 10:12 Wound Center Nurse 1 #12- R GROIN INFERIOR CLUSTER -Current Size (cm) - Length 1.6 -Current Size (cm) - Width 0.7 -Current Size (cm) - Depth 0.2 -Total Square Cm 1.12 -Photo Taken Yes -Exudate Amt Medium -Exudate Type Serosanguineous -Wound Margin Thickened & Rolled Under -Granulation Amt Small (1-33%) -Granulation Quality [place] -Necrosis Amt Small (1-33%) -Necrotic Tissue Type Adherent Slough -Structure Exposed N/A -Texture (Blanche-wound Skin Appearance) Scarring -Moisture (Blanche-wound Skin Appearance) Maceration -Color (Blanche-wound Skin Appearance) No Abnormality -Temperature (Blanche-wound Skin No Abnormality Appearance) (Pt Warm) -Ulcer Cleansing Soap and Water -Foul Odor after Cleansing No -Anesthetic Used 4% Lidocaine Solution -Wound Comment(s) R Stump red and warm, Pt c/o temps off and on for last 3 weeks. #11 R Groin--superior -Current Size (cm) - Length 1 -Current Size (cm) - Width 0.6 -Current Size (cm) - Depth 0.2 -Total Square Cm 0.6 -Photo Taken Yes -Exudate Amt Medium -Exudate Type Serosanguineous -Wound Margin Thickened & Rolled Under -Granulation Amt Medium (34-66%) -Granulation Quality [place] -Necrosis Amt Medium (34-66%) -Necrotic Tissue Type Adherent Slough -Structure Exposed N/A -Texture (Blanche-wound Skin Appearance) Scarring -Moisture (Blanche-wound Skin Appearance) No Abnormality -Color (Blanche-wound Skin Appearance) No Abnormality -Temperature (Blanche-wound Skin No Abnormality Appearance) (Pt Warm) -Ulcer Cleansing Soap and Water -Foul Odor after Cleansing No -Anesthetic Used 4% Lidocaine Solution WC - Nurse 2 - General Ulcer CM Notes Start: 09/11/23 10:10 Freq: Status: Active Protocol: Activity Type Activity Date Activity User E-sign Co-sign Detail Recorded Client Recorded Date Recorded By Document 09/11/23 10:31 Laptop 09/11/23 10:38 09/11/23 10:31 Wound Center Nurse 2 #12- R GROIN INFERIOR CLUSTER -Time 10:31 -Correct Patient Yes -Correct Side, Site, Position Yes -Correct Procedure Yes -Procedure Performed Yes -Type of Procedure Debridement -Clinical Debridement Subcutaneous -Tissue Removed Subcutaneous -Post Debridement (cm) - Length 2.1 -Post Debridement (cm) - Width 1.0 -Post Debridement (cm) - Depth 0.3 -Total Square (Post) (cm) 2.10 -Area of Debridement (cm) - Length 2.1 -Area of Debridement (cm) - Width 1.0 -Total Square (Area) (cm) 2.10 -Tunneling No -Undermining/Tunneling No -Circular Undermining No -Wound/Ulcer Outcome Not Healed -Ulcer Cleansing Rinsed/ Irrigated with Saline -Foul Odor after Cleansing No -Bioengineered Tissue No -Bleeding Controlled with Pressure -Treatment Response Procedure Tolerated Well -Offloading No -Debridement - Subq, 1st 20sq cm Yes #11 R Groin--superior -Time 10:32 -Correct Patient Yes -Correct Side, Site, Position Yes -Correct Procedure Yes -Procedure Performed Yes -Type of Procedure Debridement -Clinical Debridement Subcutaneous -Tissue Removed Subcutaneous -Post Debridement (cm) - Length 1.0 -Post Debridement (cm) - Width 0.8 -Post Debridement (cm) - Depth 0.3 -Total Square (Post) (cm) 0.80 -Area of Debridement (cm) - Length 1.0 -Area of Debridement (cm) - Width 0.8 -Total Square (Area) (cm) 0.80 -Tunneling No -Undermining/Tunneling No -Circular Undermining No -Wound/Ulcer Outcome Not Healed -Ulcer Cleansing Rinsed/ Irrigated with Saline -Foul Odor after Cleansing No -Bioengineered Tissue No -Bleeding Controlled with Pressure -Treatment Response Procedure Tolerated Well -Offloading No -Debridement - Subq, 1st 20sq cm Yes Pain Scale: 0-10 Numeric Is Patient Pain Free? Yes - Nurse 3 - General Ulcer D/C NN Start: 09/11/23 10:10 Freq: Status: Active Protocol: Activity Type Activity Date Activity User E-sign Co-sign Detail Recorded Client Recorded Date Recorded By Document 09/11/23 10:40 Laptop 09/11/23 10:40 09/11/23 10:40 Wound Care Center Nurse 3 #12- R GROIN INFERIOR CLUSTER -Ulcer Cleansing Rinsed/ Irrigated with Saline -Foul Odor after Cleansing No -Primary Dressing Applied Promogran Mary Matter -Primary Dressing Covered/Secured with Dry Gauze, Secured with Tape -Promogran Mary Matter 1 #11 R Groin--superior -Ulcer Cleansing Rinsed/ Irrigated with Saline -Foul Odor after Cleansing No -Primary Dressing Applied Promogran Mary Matter -Primary Dressing Covered/Secured with Dry Gauze, Secured with Tape -Promogran Mary Matter 0 Pain Scale: 0-10 Numeric Is Patient Pain Free? Yes WC - Visit Discharge Discharge Condition Stable Ambulatory Status Ambulatory Transportation Private Auto Medication Reconcilliation completed & Yes provided to patient/care provider Clinical Summary of Care Provided Yes 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 (2) Soft tissue radionecrosis: CODE(S): L59.8 - Other specified disorders of the skin and subcutaneous tissue related to radiation; Y84.2 - Radiological procedure and radiotherapy as the cause of abnormal reaction of the patient, or of later complication, without mention of misadventure at the time of the procedure (3) soft tissue radiation injury: (4) Radiation injury: CODE(S): T66.XXXA - Radiation sickness, unspecified, initial encounter QUALIFIERS: Encounter type: subsequent encounter Qualified Code(s): T66.XXXD - Radiation sickness, unspecified, subsequent encounter (5) History of melanoma: CODE(S): Z85.820 - Personal history of malignant melanoma of skin PLAN: Plan Patient evaluated at the wound healing center. Her right AKA stump is erythematous and warm. Encouraged her to seek further evaluation at the ED. This clinically looks like cellulitis. Wound culture obtained today. Depending on the results of the culture, it may necessitate treatment with antibiotics or may need to change antibiotics, if she is started on them in the ED. Phoned the ED and spoke with the physician there to inform them why I was sending her over to be evaluated. Wound care - Will place the Medihoney on hold. Will start her on Mary daily topped with gauze. The silver in the Mary is a good antimicrobial, until we get her wound cultures back. Instructed to wash the ulcers with soap and water and pat dry at the time of the dressing changes. Follow up one week.
[2023-09-18 10:18] VITALS: BP 134/75; PULSE 82; RESP 18; TEMP 36.2; BMI 29.8
--- NOTE | 2023-09-18 12:01 | PCM.WC.PN ---
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 The patient was diagnosed with melanoma of the right calf in the 1969's. 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 The patient underwent excision of her melanoma with lymphadenectomy in the right groin. She also underwent lengthy radiation treatments at the [facility] in [place], [place]. Melanoma recurred, and the patient was subsequently treated with monoclonal antibodies in 1984. However, due to the presence of severe radiation injury, persisting open wounds in the right thigh, MRSA infection, and severe radiation injury to the right femoral artery, the patient subsequently required right above-knee amputation in 2002. 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 Treatment included local ulcer care and hyperbaric oxygen therapy. She underwent a total of nearly 90 treatments of hyperbaric oxygen therapy. It is known that she tolerated the therapies well, and derived significant benefit. 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 She has also undergone several more sessions of hyperbaric oxygen therapy. She also received a series of 10 EpiFix allografts in the course of previous treatment. Each of the patient's prior courses of treatment in our facility have been protracted, with difficulties encountered in achieving complete healing. Her most recent course of treatment ended with successful healing and discharge in February 2021. The patient presented at this time with a recurrence of her right groin ulceration, again thought to be secondary to soft tissue radiation injury. The ulceration recurred spontaneously approximately 2-3 weeks prior to her presentation. The patient indicates that her health history has not changed since she was last treated in our facility. Progress of Wound: Courtesy visit for Dr. De Jesus who is not in the office this week. Patient was hospitalized last week from 09/11/23-09/14/23 for cellulitis and positive wound cultures. She states she is feeling much better since coming home. She is no longer having any issues with fever or chills. Her right AKA stump looks good today, no erythema or edema. She has been wearing her leg for short periods of time to get a few things done. Her right groin superior ulcer and inferior ulcer clusters look good with less non viable tissue present. Wound beds are beefy pink. Decrease in the thickened scar tissue/non viable tissue that is between the inferior ulcer cluster. Objective Data Objective Data Vital Signs: Vital Signs Temp Pulse Resp BP O2 Del Method 97.1 F L 82 18 134/75 H Room Air 09/18/23 10:18 09/18/23 10:18 09/18/23 10:18 09/18/23 10:18 09/18/23 10:18 Oxygen Delivery Method Room Air Weight: 196 lb 1.696 oz Body Mass Index (BMI) 29.8 Lab / Micro Data Micro: Microbiology 09/11/23 10:35 Wound - Groin Gram Stain - Final 09/11/23 10:35 Wound - Groin Wound Culture - Final Streptococcus agalactiae (B) Corynebacterium striatum Staphylococcus epidermidis Staphylococcus lugdunensis Staphylococcus aureus 09/11/23 10:35 Wound - Groin Anaerobic Culture - Final No anaerobic bacteria isolated. Charges/Coding Procedures Integumentary 111xxx-113xx: [id number] Malinda subq tissue 20 sq cm/< Debridement Note Debridement Note Wound debrided: #11 -superior groin ulcer Laterality: Right Type of Debridement: Excisional debridement Anesthesia Used: 5% Lidocaine Gel Depth: Down to and including healthy tissue and in the subcutaneous layer Percentage of wound debrided: 100 Instrument Used: 5mm curette Tissue Removed: Non viable tissue and slough Severity: Fat Layer Exposed Amount of bleeding with debridement: Mild Bleeding Controlled with: Compression and gauze Patient tolerated procedure: Patient tolerated procedure well Post-Debridement Measurements and Additional Note: Post-Debridement Measurements/Treatment - Nurse 1 - General Ulcer Assessment Start: 09/11/23 10:10 Freq: Status: Active Protocol: MICHAEL Activity Type Activity Date Activity User E-sign Co-sign Detail Recorded Client Recorded Date Recorded By Document 09/11/23 10:12 DL Desktop 09/11/23 10:20 DL Document 09/18/23 10:18 KW Desktop 09/18/23 10:31 KW 09/11/23 09/18/23 10:12 10:18 - Today's Visit Information Type of service Follow-up Visit Follow-up 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/[facility] PROFESS[facility] (Physician/[facility]CHEOLOG[facility] PROFESSOR ) ) Arrival Mode Ambulatory Ambulatory, Crutches Transfer Assistance None Patient Identification Verified (Name & Yes Yes ) Patient Requires Transmission-Based No Precautions Height and Weight Body Mass Index (BMI) 29.8 29.8 BMI Classification Overweight Overweight Vital Signs Temperature (97.8 F-99.1 F) 98.6 F 97.1 F L Temperature Source Temporal Temporal Pulse Rate (60-100) 96 82 Pulse Location Monitor Monitor Respiratory Rate (12-18) 20 H 18 Respiratory rate source Observation Observation Oxygen Delivery Method Room Air Blood Pressure (90/60-120/80) 152/86 H 134/75 H Blood Pressure Mean (mm Hg) 108 94 Source Monitor Monitor Position Semi-Fowlers Blood Pressure Location Right Arm History Since Last Visit- (Skip if this is Patient's initial visit) Have you changed medications since your No Yes last visit? Any new allergies or adverse reactions No No Had a fall/change in ADL's that may No No increase risk of falls Signs or symptoms of abuse and/or No No neglect since last visit Have you been in the hospital since your No Yes last visit? Has dressing in place as prescribed Yes Yes Has compression in place as prescribed N/A N/A Has offloadiing in place as prescribed Yes N/A Experienced any changes in pain level or No No management Left Footwear Regular Shoe Right Footwear No Footwear Pain Scale: 0-10 Numeric Is Patient Pain Free? Yes Yes WC - Nurse 1 - General Ulcer Measurement Start: 09/11/23 10:10 Freq: Status: Active Protocol: Activity Type Activity Date Activity User E-sign Co-sign Detail Recorded Client Recorded Date Recorded By Document 09/11/23 10:12 DL Desktop 09/11/23 10:20 DL Edit Result 09/11/23 10:12 DL (1) Desktop 09/11/23 10:22 DL Document 09/18/23 10:18 KW Desktop 09/18/23 10:31 KW (1) #12- R GROIN INFERIOR CLUSTER - Wound Comment(s) => R Stump red and warm, Pt c/o temps off and on for last 3 weeks. 09/11/23 09/18/23 10:12 10:18 Wound Center Nurse 1 #12- R GROIN INFERIOR CLUSTER -Current Size (cm) - Length 1.6 0.1 -Current Size (cm) - Width 0.7 0.1 -Current Size (cm) - Depth 0.2 0.1 -Total Square Cm 1.12 0.01 -Date of Last Picture (Recall this 09/18/23 field) -Photo Taken Yes Yes -Exudate Amt Medium -Exudate Type Serosanguineous -Wound Margin Thickened & Distinct, Rolled Under Outline Attached -Granulation Amt Small (1-33%) Medium (34-66%) -Granulation Quality [place] -Necrosis Amt Small (1-33%) Medium (34-66%) -Necrotic Tissue Type Adherent Slough Adherent Slough -Structure Exposed N/A -Texture (Blanche-wound Skin Appearance) Scarring Assessed -Moisture (Blanche-wound Skin Appearance) Maceration Assessed, Maceration -Color (Blanche-wound Skin Appearance) No Abnormality Assessed -Temperature (Blanche-wound Skin No Abnormality Appearance) (Pt Warm) -Ulcer Cleansing Soap and Water Rinsed/ Irrigated with Saline -Foul Odor after Cleansing No No -Anesthetic Used 4% Lidocaine 4% Lidocaine Solution Solution -Wound Comment(s) R Stump red and warm, Pt c/o temps off and on for last 3 weeks. #11 R Groin--superior -Current Size (cm) - Length 1 0.6 -Current Size (cm) - Width 0.6 0.4 -Current Size (cm) - Depth 0.2 0.1 -Total Square Cm 0.6 0.24 -Date of Last Picture (Recall this 09/18/23 field) -Photo Taken Yes Yes -Exudate Amt Medium Small -Exudate Type Serosanguineous Serosanguineous -Wound Margin Thickened & Thickened Rolled Under -Granulation Amt Medium (34-66%) Medium (34-66%) -Granulation Quality [place] -Necrosis Amt Medium (34-66%) -Necrotic Tissue Type Adherent Slough -Structure Exposed N/A -Texture (Blanche-wound Skin Appearance) Scarring Assessed -Moisture (Blanche-wound Skin Appearance) No Abnormality Assessed -Color (Blanche-wound Skin Appearance) No Abnormality Assessed -Temperature (Blanche-wound Skin No Abnormality No Abnormality Appearance) (Pt Warm) (Pt Warm) -Tenderness on Palpation (Blanche-wound No Skin Appearance) -Ulcer Cleansing Soap and Water Rinsed/ Irrigated with Saline -Foul Odor after Cleansing No No -Anesthetic Used 4% Lidocaine 4% Lidocaine Solution Solution WC - Nurse 2 - General Ulcer CM Notes Start: 09/11/23 10:10 Freq: Status: Active Protocol: Activity Type Activity Date Activity User E-sign Co-sign Detail Recorded Client Recorded Date Recorded By Document 09/11/23 10:31 JF Laptop 09/11/23 10:38 JF Edit Result 09/11/23 10:31 JF (1) Laptop 09/12/23 16:16 JF Document 09/18/23 10:48 Laptop 09/18/23 10:56 (1) #11 R Groin--superior - Debridement - Subq, 1st 20sq cm Yes => No 09/11/23 09/18/23 10:31 10:48 Wound Center Nurse 2 #12- R GROIN INFERIOR CLUSTER -Time 10:31 10:48 -Correct Patient Yes Yes -Correct Side, Site, Position Yes Yes -Correct Procedure Yes Yes -Procedure Performed Yes Yes -Type of Procedure Debridement Debridement -Clinical Debridement Subcutaneous Subcutaneous -Tissue Removed Subcutaneous Subcutaneous -Post Debridement (cm) - Length 2.1 2.0 -Post Debridement (cm) - Width 1.0 0.5 -Post Debridement (cm) - Depth 0.3 0.3 -Total Square (Post) (cm) 2.10 1.00 -Area of Debridement (cm) - Length 2.1 2.0 -Area of Debridement (cm) - Width 1.0 0.5 -Total Square (Area) (cm) 2.10 1.00 -Tunneling No No -Undermining/Tunneling No No -Circular Undermining No No -Wound/Ulcer Outcome Not Healed Not Healed -Ulcer Cleansing Rinsed/ Rinsed/ Irrigated with Irrigated with Saline Saline -Foul Odor after Cleansing No No -Bioengineered Tissue No No -Bleeding Controlled with Pressure Pressure -Treatment Response Procedure Procedure Tolerated Well Tolerated Well -Offloading No No -Debridement - Subq, 1st 20sq cm Yes Yes #11 R Groin--superior -Time 10:32 10:49 -Correct Patient Yes Yes -Correct Side, Site, Position Yes Yes -Correct Procedure Yes Yes -Procedure Performed Yes Yes -Type of Procedure Debridement Debridement -Clinical Debridement Subcutaneous Subcutaneous -Tissue Removed Subcutaneous Subcutaneous -Post Debridement (cm) - Length 1.0 1.0 -Post Debridement (cm) - Width 0.8 0.8 -Post Debridement (cm) - Depth 0.3 0.3 -Total Square (Post) (cm) 0.80 0.80 -Area of Debridement (cm) - Length 1.0 1.0 -Area of Debridement (cm) - Width 0.8 0.8 -Total Square (Area) (cm) 0.80 0.80 -Tunneling No No -Undermining/Tunneling No No -Circular Undermining No No -Wound/Ulcer Outcome Not Healed Not Healed -Ulcer Cleansing Rinsed/ Rinsed/ Irrigated with Irrigated with Saline Saline -Foul Odor after Cleansing No No -Bioengineered Tissue No No -Bleeding Controlled with Pressure Pressure -Treatment Response Procedure Procedure Tolerated Well Tolerated Well -Offloading No No -Debridement - Subq, 1st 20sq cm No No Pain Scale: 0-10 Numeric Is Patient Pain Free? Yes Yes - Nurse 3 - General Ulcer D/C NN Start: 09/11/23 10:10 Freq: Status: Active Protocol: Activity Type Activity Date Activity User E-sign Co-sign Detail Recorded Client Recorded Date Recorded By Document 09/11/23 10:40 [place] Laptop 09/11/23 10:40 [place] Document 09/18/23 10:57 [place] Laptop 09/18/23 10:58 09/11/23 09/18/23 10:40 10:57 Wound Care Center Nurse 3 #12- R GROIN INFERIOR CLUSTER -Ulcer Cleansing Rinsed/ Rinsed/ Irrigated with Irrigated with Saline Saline -Foul Odor after Cleansing No No -Primary Dressing Applied Promogran Promogran Mary Matter Mary Matter -Primary Dressing Covered/Secured with Dry Gauze, Dry Gauze, Secured with Secured with Tape Tape -Promogran Mary Matter 1 0 #11 R Groin--superior -Ulcer Cleansing Rinsed/ Rinsed/ Irrigated with Irrigated with Saline Saline -Foul Odor after Cleansing No No -Primary Dressing Applied Promogran Promogran Mary Matter Mary Matter -Primary Dressing Covered/Secured with Dry Gauze, Dry Gauze, Secured with Secured with Tape Tape -Promogran Mary Matter 0 0 Pain Scale: 0-10 Numeric Is Patient Pain Free? Yes Yes - Visit Discharge Discharge Condition Stable Stable Ambulatory Status Ambulatory Ambulatory, Crutches Transportation Private Auto Private Auto Medication Reconcilliation completed & Yes Yes provided to patient/care provider Clinical Summary of Care Provided Yes Yes 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 (2) Soft tissue radionecrosis: CODE(S): L59.8 - Other specified disorders of the skin and subcutaneous tissue related to radiation; Y84.2 - Radiological procedure and radiotherapy as the cause of abnormal reaction of the patient, or of later complication, without mention of misadventure at the time of the procedure (3) soft tissue radiation injury: (4) Radiation injury: CODE(S): T66.XXXA - Radiation sickness, unspecified, initial encounter QUALIFIERS: Encounter type: subsequent encounter Qualified Code(s): T66.XXXD - Radiation sickness, unspecified, subsequent encounter (5) History of melanoma: CODE(S): Z85.820 - Personal history of malignant melanoma of skin PLAN: Plan Patient evaluated at the wound healing center. Wound care - Will place the Medih[employer] on hold. Continue moistened Mary daily topped with gauze. Instructed to wash the ulcers with soap and water and pat dry at the time of the dressing changes. Wound culture from 09/11/23 was positive for Streptococcus agalactiae (B), Corynebacterium striatum, MRSE, Staphylococcus lugdunensis, and Staphylococcus aureus. While hospitalized she was treated with IV Vancomycin and Zosyn. She was discharged home on Doxycycline and Augmentin. Follow up one week.
[2023-09-25 11:32] VITALS: BP 163/80; PULSE 78; RESP 16; TEMP 35.5; BMI 29.8
--- NOTE | 2023-09-25 13:25 | PN.PCM_ITS ---
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 The patient was diagnosed with melanoma of the right calf in the 1969's. The melanoma was metastatic to lymph nodes. The patient underwent excision of her melanoma with lymphadenectomy in the right groin. She also underwent lengthy radiation treatments at the [facility] in [place], [place]. Melanoma recurred, and the patient was subsequently treated with monoclonal antibodies in 1984. However, due to the presence of severe radiation injury, persisting open wounds in the right thigh, MRSA infection, and severe radiation injury to the right femoral artery, the patient subsequently required right above-knee amputation in 2002. 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 Treatment included local ulcer care and hyperbaric oxygen therapy. She underwent a total of nearly 90 treatments of hyperbaric oxygen therapy. It is known that she tolerated the therapies well, and derived significant benefit. 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 She has also undergone several more sessions of hyperbaric oxygen therapy. She also received a series of 10 EpiFix allografts in the course of previous treatment. Each of the patient's prior courses of treatment in our facility have been protracted, with difficulties encountered in achieving complete healing. Her most recent course of treatment ended with successful healing and discharge in February 2021. The patient presented at this time with a recurrence of her right groin ulceration, again thought to be secondary to soft tissue radiation injury. The ulceration recurred spontaneously approximately 2-3 weeks prior to her presentation. The patient indicates that her health history has not changed since she was last treated in our facility. Progress of Wound: Courtesy visit for Dr. De Jesus who is not in the office this week. Patient was hospitalized from 09/11/23-09/14/23 for cellulitis and positive wound cultures. She states she is feeling much better since coming home. She no longer has any right AKA stump erythema or edema. She has been able to tolerate wearing her prosthesis. Her right groin superior ulcer and inferior ulcer cluster is less excoriated. Wound beds are beefy pink. Decrease in the thickened scar tissue/non viable ti ssue that is between the inferior ulcer cluster. They bleed well with debridement. Objective Data Objective Data Vital Signs: Vital Signs Temp Pulse Resp BP O2 Del Method 96 F L 78 16 163/80 H Room Air 09/25/23 11:32 09/25/23 11:32 09/25/23 11:32 09/25/23 11:32 09/25/23 11:32 Oxygen Delivery Method Room Air Weight: 196 lb 1.696 oz Body Mass Index (BMI) 29.8 Lab / Micro Data Micro: Microbiology 09/11/23 10:35 Wound - Groin Gram Stain - Final 09/11/23 10:35 Wound - Groin Wound Culture - Final Streptococcus agalactiae (B) Corynebacterium striatum Staphylococcus epidermidis Staphylococcus lugdunensis Staphylococcus aureus 09/11/23 10:35 Wound - Groin Anaerobic Culture - Final No anaerobic bacteria isolated. Charges/Coding Procedures Integumentary [id number]: [id number] Malinda subq tissue 20 sq cm/< Debridement Note Debridement Note Wound debrided: #11 -superior groin ulcer Laterality: Right Type of Debridement: Excisional debridement Anesthesia Used: 5% Lidocaine Gel Depth: Down to and including healthy tissue and in the subcutaneous layer Percentage of wound debrided: 100 Instrument Used: 3mm curette Tissue Removed: Non viable tissue and slough Severity: Fat Layer Exposed Amount of bleeding with debridement: Mild Bleeding Controlled with: Compression and gauze Patient tolerated procedure: Patient tolerated procedure well Post-Debridement Measurements and Additional Note: Post-Debridement Measurements/Treatment WC - Nurse 1 - General Ulcer Assessment Start: 09/11/23 10:10 Freq: Status: Active Protocol: MICHAEL Activity Type Activity Date Activity User E-sign Co-sign Detail Recorded Client Recorded Date Recorded By Document 09/11/23 10:12 DL Desktop 09/11/23 10:20 DL Document 09/18/23 10:18 KW Desktop 09/18/23 10:31 KW Document 09/25/23 11:32 BMF Desktop 09/25/23 11:41 BMF Edit Result 09/25/23 11:32 BMF (1) Desktop 09/25/23 11:43 BMF (1) Pulse Rate (60-100) 83 => 78 Blood Pressure (90/60-120/80) 181/89 H => 163/80 H Blood Pressure Mean (mm Hg) 119 => 107 09/11/23 09/18/23 09/25/23 10:12 10:18 11:32 WC - Today's Visit Information Type of service Follow-up Visit Follow-up Visit Follow-up 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/DIRECTOR OF MEDICAL SERVICES (Physician/DIRECTOR OF MEDICAL SERVICES (Physician/DIRECTOR OF MEDICAL SERVICES ) ) ) Arrival Mode Ambulatory Ambulatory, Ambulatory,Cane Crutches Transfer Assistance None None Patient Identification Verified (Name & Yes Yes Yes ) Patient Requires Transmission-Based No No Precautions Height and Weight Body Mass Index (BMI) 29.8 29.8 29.8 BMI Classification Overweight Overweight Overweight Vital Signs Temperature (97.8 F-99.1 F) 98.6 F 97.1 F L 96 F L Temperature Source Temporal Temporal Temporal Pulse Rate (60-100) 96 82 78 Pulse Location Monitor Monitor Monitor Respiratory Rate (12-18) 20 H 18 16 Respiratory rate source Observation Observation Observation Oxygen Delivery Method Room Air Room Air Blood Pressure (90/60-120/80) 152/86 H 134/75 H 163/80 H Blood Pressure Mean (mm Hg) 108 94 107 Source Monitor Monitor Monitor Position Semi-Fowlers Sitting Blood Pressure Location Right Arm Left Arm History Since Last Visit- (Skip if this is Patient's initial visit) Have you changed medications since your No Yes No last visit? Any new allergies or adverse reactions No No No Had a fall/change in ADL's that may No No No increase risk of falls Signs or symptoms of abuse and/or No No No neglect since last visit Have you been in the hospital since your No Yes No last visit? Has dressing in place as prescribed Yes Yes Yes Has compression in place as prescribed N/A N/A N/A Has offloadiing in place as prescribed Yes N/A N/A Experienced any changes in pain level or No No No management Left Footwear Regular Shoe Right Footwear No Footwear Pain Scale: 0-10 Numeric Is Patient Pain Free? Yes Yes Yes - Nurse 1 - General Ulcer Measurement Start: 09/11/23 10:10 Freq: Status: Active Protocol: Activity Type Activity Date Activity User E-sign Co-sign Detail Recorded Client Recorded Date Recorded By Document 09/11/23 10:12 DL Desktop 09/11/23 10:20 DL Edit Result 09/11/23 10:12 DL (1) Desktop 09/11/23 10:22 DL Document 09/18/23 10:18 KW Desktop 09/18/23 10:31 KW Document 09/25/23 11:32 BMF Desktop 09/25/23 11:41 BMF (1) #12- R GROIN INFERIOR CLUSTER - Wound Comment(s) => R Stump red and warm, Pt c/o temps off and on for last 3 weeks. 09/11/23 09/18/23 09/25/23 10:12 10:18 11:32 Wound Center Nurse 1 #12- R GROIN INFERIOR CLUSTER -Combined with other wound No -Current Size (cm) - Length 1.6 0.1 0.6 -Current Size (cm) - Width 0.7 0.1 0.3 -Current Size (cm) - Depth 0.2 0.1 0.1 -Total Square Cm 1.12 0.01 0.18 -Date of Last Picture (Recall this 09/18/23 field) -Photo Taken Yes Yes -Tunneling No -Undermining/Tunneling No -Circular Undermining No -Exudate Amt Medium Small -Exudate Type Serosanguineous Serosanguineous -Wound Margin Thickened & Distinct, Thickened Rolled Under Outline Attached -Granulation Amt Small (1-33%) Medium (34-66%) Large (67-100%) -Granulation Quality [place] Red -Slough/Fibrin No -Necrosis Amt Small (1-33%) Medium (34-66%) None Present (0 %) -Necrotic Tissue Type Adherent Slough Adherent Slough -Structure Exposed N/A -Texture (Blanche-wound Skin Appearance) Scarring Assessed Assessed, Scarring -Moisture (Blanche-wound Skin Appearance) Maceration Assessed, Assessed, Maceration Maceration -Color (Blanche-wound Skin Appearance) No Abnormality Assessed Assessed -Temperature (Blanche-wound Skin No Abnormality No Abnormality Appearance) (Pt Warm) (Pt Warm) -Tenderness on Palpation (Blanche-wound No Skin Appearance) -Ulcer Cleansing Soap and Water Rinsed/ Rinsed/ Irrigated with Irrigated with Saline Saline -Foul Odor after Cleansing No No No -Anesthetic Used 4% Lidocaine 4% Lidocaine 4% Lidocaine Solution Solution Solution -Wound Comment(s) R Stump red and warm, Pt c/o temps off and on for last 3 weeks. #11 R Groin--superior -Combined with other wound No -Current Size (cm) - Length 1 0.6 0.3 -Current Size (cm) - Width 0.6 0.4 0.8 -Current Size (cm) - Depth 0.2 0.1 0.2 -Total Square Cm 0.6 0.24 0.24 -Date of Last Picture (Recall this 09/18/23 field) -Photo Taken Yes Yes -Tunneling No -Undermining/Tunneling No -Circular Undermining No -Exudate Amt Medium Small Small -Exudate Type Serosanguineous Serosanguineous Serosanguineous -Wound Margin Thickened & Thickened Thickened Rolled Under -Granulation Amt Medium (34-66%) Medium (34-66%) Large (67-100%) -Granulation Quality [place] Red -Slough/Fibrin No -Necrosis Amt Medium (34-66%) None Present (0 %) -Necrotic Tissue Type Adherent Slough -Structure Exposed N/A -Texture (Blanche-wound Skin Appearance) Scarring Assessed Assessed, Scarring -Moisture (Blanche-wound Skin Appearance) No Abnormality Assessed Assessed, Maceration -Color (Blanche-wound Skin Appearance) No Abnormality Assessed Assessed -Temperature (Blanche-wound Skin No Abnormality No Abnormality No Abnormality Appearance) (Pt Warm) (Pt Warm) (Pt Warm) -Tenderness on Palpation (Blanche-wound No No Skin Appearance) -Ulcer Cleansing Soap and Water Rinsed/ Rinsed/ Irrigated with Irrigated with Saline Saline -Foul Odor after Cleansing No No No -Anesthetic Used 4% Lidocaine 4% Lidocaine 4% Lidocaine Solution Solution Solution WC - Nurse 2 - General Ulcer CM Notes Start: 09/11/23 10:10 Freq: Status: Active Protocol: Activity Type Activity Date Activity User E-sign Co-sign Detail Recorded Client Recorded Date Recorded By Document 09/11/23 10:31 Laptop 09/11/23 10:38 Edit Result 09/11/23 10:31 HARDIK (1) Laptop 09/12/23 16:16 Document 09/18/23 10:48 Laptop 09/18/23 10:56 Document 09/25/23 12:11 JF Laptop 09/25/23 12:14 JF (1) #11 R Groin--superior - Debridement - Subq, 1st 20sq cm Yes => No 09/11/23 09/18/23 09/25/23 10:31 10:48 12:11 Wound Center Nurse 2 #12- R GROIN INFERIOR CLUSTER -Time 10:31 10:48 12:11 -Correct Patient Yes Yes Yes -Correct Side, Site, Position Yes Yes Yes -Correct Procedure Yes Yes Yes -Procedure Performed Yes Yes Yes -Type of Procedure Debridement Debridement Debridement -Clinical Debridement Subcutaneous Subcutaneous Subcutaneous -Tissue Removed Subcutaneous Subcutaneous Subcutaneous -Post Debridement (cm) - Length 2.1 2.0 2.0 -Post Debridement (cm) - Width 1.0 0.5 1.0 -Post Debridement (cm) - Depth 0.3 0.3 0.2 -Total Square (Post) (cm) 2.10 1.00 2.00 -Area of Debridement (cm) - Length 2.1 2.0 2.0 -Area of Debridement (cm) - Width 1.0 0.5 1.0 -Total Square (Area) (cm) 2.10 1.00 2.00 -Tunneling No No No -Undermining/Tunneling No No No -Circular Undermining No No No -Wound/Ulcer Outcome Not Healed Not Healed Not Healed -Ulcer Cleansing Rinsed/ Rinsed/ Rinsed/ Irrigated with Irrigated with Irrigated with Saline Saline Saline -Foul Odor after Cleansing No No No -Bioengineered Tissue No No No -Bleeding Controlled with Pressure Pressure Pressure -Treatment Response Procedure Procedure Procedure Tolerated Well Tolerated Well Tolerated Well -Offloading No No No -Debridement - Subq, 1st 20sq cm Yes Yes No #11 R Groin--superior -Time 10:32 10:49 12:12 -Correct Patient Yes Yes Yes -Correct Side, Site, Position Yes Yes Yes -Correct Procedure Yes Yes Yes -Procedure Performed Yes Yes Yes -Type of Procedure Debridement Debridement Debridement -Clinical Debridement Subcutaneous Subcutaneous Subcutaneous -Tissue Removed Subcutaneous Subcutaneous Subcutaneous -Post Debridement (cm) - Length 1.0 1.0 1.0 -Post Debridement (cm) - Width 0.8 0.8 0.8 -Post Debridement (cm) - Depth 0.3 0.3 0.3 -Total Square (Post) (cm) 0.80 0.80 0.80 -Area of Debridement (cm) - Length 1.0 1.0 1.0 -Area of Debridement (cm) - Width 0.8 0.8 0.8 -Total Square (Area) (cm) 0.80 0.80 0.80 -Tunneling No No No -Undermining/Tunneling No No No -Circular Undermining No No No -Wound/Ulcer Outcome Not Healed Not Healed Not Healed -Ulcer Cleansing Rinsed/ Rinsed/ Rinsed/ Irrigated with Irrigated with Irrigated with Saline Saline Saline -Foul Odor after Cleansing No No No -Bioengineered Tissue No No No -Bleeding Controlled with Pressure Pressure Pressure -Treatment Response Procedure Procedure Procedure Tolerated Well Tolerated Well Tolerated Well -Offloading No No No -Debridement - Subq, 1st 20sq cm No No Yes Pain Scale: 0-10 Numeric Is Patient Pain Free? Yes Yes Yes WC - Nurse 3 - General Ulcer D/C NN Start: 09/11/23 10:10 Freq: Status: Active Protocol: Activity Type Activity Date Activity User E-sign Co-sign Detail Recorded Client Recorded Date Recorded By Document 09/11/23 10:40 [employer] Laptop 09/11/23 10:40 Document 09/18/23 10:57 Laptop 09/18/23 10:58 Document 09/25/23 12:16 JF Laptop 09/25/23 12:17 Document 09/25/23 12:23 DL Desktop 09/25/23 12:25 DL 09/11/23 09/18/23 09/25/23 10:40 10:57 12:16 Wound Care Center Nurse 3 #12- R GROIN INFERIOR CLUSTER -Ulcer Cleansing Rinsed/ Rinsed/ Rinsed/ Irrigated with Irrigated with Irrigated with Saline Saline Saline -Foul Odor after Cleansing No No No -Primary Dressing Applied Promogran Promogran Promogran Xu Matter Xu Matter Xu Matter -Primary Dressing Covered/Secured with Dry Gauze, Dry Gauze, Dry Gauze, Secured with Secured with Secured with Tape Tape Tape -Promogran Xu Matter 1 0 0 #11 R Groin--superior -Ulcer Cleansing Rinsed/ Rinsed/ Rinsed/ Irrigated with Irrigated with Irrigated with Saline Saline Saline -Foul Odor after Cleansing No No No -Primary Dressing Applied Promogran Promogran Promogran Xu Matter Xu Matter Xu Matter -Other Dressing -Primary Dressing Covered/Secured with Dry Gauze, Dry Gauze, Dry Gauze, Secured with Secured with Secured with Tape Tape Tape -Promogran Xu Matter 0 0 0 Treatment Response Pain Scale: 0-10 Numeric Is Patient Pain Free? Yes Yes Yes WC - Visit Discharge Discharge Condition Stable Stable Stable Ambulatory Status Ambulatory Ambulatory, Ambulatory, Crutches Crutches Transportation Private Auto Private Auto Private Auto Medication Reconcilliation completed & Yes Yes Yes provided to patient/care provider Clinical Summary of Care Provided Yes Yes Yes Notes: 09/25/23 12:23 Wound Care Center Nurse 3 #12- R GROIN INFERIOR CLUSTER -Ulcer Cleansing Rinsed/ Irrigated with Saline -Foul Odor after Cleansing No -Primary Dressing Applied Promogran Xu Matter -Primary Dressing Covered/Secured with Dry Gauze, Secured with Tape -Promogran Xu Matter 1 #11 R Groin--superior -Ulcer Cleansing Rinsed/ Irrigated with Saline -Foul Odor after Cleansing No -Primary Dressing Applied -Other Dressing xu -Primary Dressing Covered/Secured with Dry Gauze, Secured with Tape -Promogran Xu Matter Treatment Response Procedure Tolerated Well Pain Scale: 0-10 Numeric Is Patient Pain Free? Yes WC - Visit Discharge Discharge Condition Stable Ambulatory Status Ambulatory Transportation Private Auto Medication Reconcilliation completed & provided to patient/care provider Clinical Summary of Care Provided Notes: Pt applied own dressing today prior to discharge. 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 (2) Soft tissue radionecrosis: CODE(S): L59.8 - Other specified disorders of the skin and subcutaneous tissue related to radiation; Y84.2 - Radiological procedure and radiotherapy as the cause of abnormal reaction of the patient, or of later complication, without mention of misadventure at the time of the procedure (3) soft tissue radiation injury: (4) Radiation injury: CODE(S): T66.XXXA - Radiation sickness, unspecified, initial encounter QUALIFIERS: Encounter type: subsequent encounter Qualified Code(s): T66.XXXD - Radiation sickness, unspecified, subsequent encounter (5) History of melanoma: CODE(S): Z85.820 - Personal history of malignant melanoma of skin PLAN: Plan Patient evaluated at the wound healing center. Wound care - Will place the Medihoney on hold. Continue moistened Xu daily topped with gauze to the superior ulcer and the one area on the inferior cluster. Place collagen hydrogel to the small area that is almost healed. Instructed to wash the ulcers with soap and water and pat dry at the time of the dressing changes. Wound culture from 09/11/23 was positive for Streptococcus agalactiae (B), Corynebacterium striatum, MRSE, Staphylococcus lugdunensis, and Staphylococcus aureus. While hospitalized she was treated with IV Vancomycin and Zosyn. She was discharged home on Doxycycline and Augmentin. Follow up two weeks with either Dr. De Jesus or myself.
== END 2023-10-08 23:59 | disposition home or self-care (01) ==
LOC: WC 11:30
PROVIDERS: PCP Family Medicine; Visit Provider Nurse Practitioner Family
DX: L59.8 Other specified disorders of the skin and subcutaneous tissue related to radiation (principal); L97.112 Non-pressure chronic ulcer of right thigh with fat layer exposed; Z89.611 Acquired absence of right leg above knee; Z87.891 Personal history of nicotine dependence; Z85.820 Personal history of malignant melanoma of skin; T66.XXXD Radiation sickness, unspecified, subsequent encounter; Y84.2 Radiological procedure and radiotherapy as the cause of abnormal reaction of the patient, or of later complication, without mention of misadventure at the time of the procedure; L03.115 Cellulitis of right lower limb
CPT/HCPCS: 11042; 87070; 87075; 87077; 87186; 87205

== ENCOUNTER 2023-10-31 14:00 | Outpatient (RCR) | payer MEDICARE, OTHER, SELFPAY ==
[2023-10-09 00:22] VITALS: BP 163/80; PULSE 78; RESP 16; TEMP 35.5; BMI 29.8
[2023-10-09 10:32] VITALS: BP 145/79; PULSE 81; RESP 18; TEMP 36.4; BMI 29.8
--- NOTE | 2023-10-09 12:30 | PCM.WC.PN ---
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 The patient was diagnosed with melanoma of the right calf in the 1969's. 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 The patient underwent excision of her melanoma with lymphadenectomy in the right groin. She also underwent lengthy radiation treatments at the [facility] [place] in [place], [place]. Melanoma recurred, and the patient was subsequently treated with monoclonal antibodies in 1984. However, due to the presence of severe radiation injury, persisting open wounds in the right thigh, MRSA infection, and severe radiation injury to the right femoral artery, the patient subsequently required right above-knee amputation in 2002. 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 Treatment included local ulcer care and hyperbaric oxygen therapy. She underwent a total of nearly 90 treatments of hyperbaric oxygen therapy. It is known that she tolerated the therapies well, and derived significant benefit. 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 She has also undergone several more sessions of hyperbaric oxygen therapy. She also received a series of 10 EpiFix allografts in the course of previous treatment. Each of the patient's prior courses of treatment in our facility have been protracted, with difficulties encountered in achieving complete healing. Her most recent course of treatment ended with successful healing and discharge in February 2021. The patient presented at this time with a recurrence of her right groin ulceration, again thought to be secondary to soft tissue radiation injury. The ulceration recurred spontaneously approximately 2-3 weeks prior to her presentation. The patient indicates that her health history has not changed since she was last treated in our facility. Progress of Wound: Patient was hospitalized from 09/11/23-09/14/23 for cellulitis and positive wound cultures. She states she is feeling much better since coming home. She no longer has any right AKA stump erythema or edema. She has been able to tolerate wearing her prosthesis. Her right groin superior ulcer is stable. The right groin inferior ulcer cluster is now only one ulcer. The excoriation has improved. Wound beds are beefy pink. Decrease in the thickened scar tissue/non viable tissue that is between the inferior ulcer cluster. Objective Data Objective Data Vital Signs: Vital Signs Temp Pulse Resp BP O2 Del Method 97.6 F L 81 18 145/79 H Room Air 10/09/23 10:32 10/09/23 10:32 10/09/23 10:32 10/09/23 10:32 10/09/23 10:32 Oxygen Delivery Method Room Air Weight: 196 lb 1.696 oz Body Mass Index (BMI) 29.8 Charges/Coding Procedures Integumentary 111xxx-113xx: [id number] Malinda subq tissue 20 sq cm/< Debridement Note Debridement Note Post-Debridement Measurements and Additional Note: Post-Debridement Measurements/Treatment WC - Nurse 1 - General Ulcer Assessment Start: 10/09/23 10:32 Freq: Status: Active Protocol: MICHAEL Activity Type Activity Date Activity User E-sign Co-sign Detail Recorded Client Recorded Date Recorded By Document 10/09/23 10:32 KW Desktop 10/09/23 10:43 KW 10/09/23 10:32 WC - Today's Visit Information Type of service Follow-up 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/MILLINERY COPYIST ) Arrival Mode Ambulatory Patient Identification Verified (Name & Yes ) Height and Weight Body Mass Index (BMI) 29.8 BMI Classification Overweight Vital Signs Temperature (97.8 F-99.1 F) 97.6 F L Temperature Source Temporal Pulse Rate (60-100) 81 Pulse Location Monitor Respiratory Rate (12-18) 18 Respiratory rate source Observation Oxygen Delivery Method Room Air Blood Pressure (90/60-120/80) 145/79 H Blood Pressure Mean (mm Hg) 101 Source Monitor Position Sitting Blood Pressure Location Left Arm History Since Last Visit- (Skip if this is Patient's initial visit) Have you changed medications since your No last visit? Any new allergies or adverse reactions No Had a fall/change in ADL's that may No increase risk of falls Signs or symptoms of abuse and/or No neglect since last visit Have you been in the hospital since your No last visit? Has dressing in place as prescribed Yes Has compression in place as prescribed N/A Has offloadiing in place as prescribed N/A Experienced any changes in pain level or No management Left Footwear Regular Shoe Right Footwear Regular Shoe Pain Scale: 0-10 Numeric Is Patient Pain Free? Yes KISHA - Nurse 1 - General Ulcer Measurement Start: 10/09/23 10:32 Freq: Status: Active Protocol: Activity Type Activity Date Activity User E-sign Co-sign Detail Recorded Client Recorded Date Recorded By Document 10/09/23 10:32 KW Desktop 10/09/23 10:43 KW 10/09/23 10:32 Wound Center Nurse 1 #12- R GROIN INFERIOR -Current Size (cm) - Length 0.6 -Current Size (cm) - Width 0.2 -Current Size (cm) - Depth 0.4 -Total Square Cm 0.12 -Date of Last Picture (Recall this 10/09/23 field) -Photo Taken Yes -Exudate Amt Small -Exudate Type Serosanguineous -Wound Margin Distinct, Outline Attached -Granulation Amt Large (67-100%) -Granulation Quality [place] -Texture (Blanche-wound Skin Appearance) Assessed -Moisture (Blanche-wound Skin Appearance) Assessed,Dry/ Scaly -Color (Blanche-wound Skin Appearance) Assessed, Erythema -Temperature (Blanche-wound Skin No Abnormality Appearance) (Pt Warm) -Ulcer Cleansing Rinsed/ Irrigated with Saline -Foul Odor after Cleansing No -Anesthetic Used 4% Lidocaine Solution #11 R Groin--superior -Current Size (cm) - Length 0.8 -Current Size (cm) - Width 0.2 -Current Size (cm) - Depth 0.2 -Total Square Cm 0.16 -Date of Last Picture (Recall this 10/09/23 field) -Photo Taken Yes -Exudate Amt Medium -Exudate Type Serosanguineous -Wound Margin Distinct, Outline Attached -Granulation Amt Large (67-100%) -Granulation Quality [place] -Necrosis Amt Small (1-33%) -Necrotic Tissue Type Adherent Slough -Texture (Blanche-wound Skin Appearance) Assessed -Moisture (Blanche-wound Skin Appearance) No Abnormality, Dry/Scaly -Color (Blanche-wound Skin Appearance) Assessed, Erythema -Temperature (Blanche-wound Skin No Abnormality Appearance) (Pt Warm) -Ulcer Cleansing Rinsed/ Irrigated with Saline -Anesthetic Used 4% Lidocaine Solution KISHA - Nurse 2 - General Ulcer CM Notes Start: 10/09/23 10:32 Freq: Status: Active Protocol: Activity Type Activity Date Activity User E-sign Co-sign Detail Recorded Client Recorded Date Recorded By Document 10/09/23 11:27 Laptop 10/09/23 11:34 10/09/23 11:27 Wound Center Nurse 2 #12- R GROIN INFERIOR -Time 11:30 -Correct Patient Yes -Correct Side, Site, Position Yes -Correct Procedure Yes -Procedure Performed Yes -Type of Procedure Debridement -Clinical Debridement Subcutaneous -Tissue Removed Subcutaneous -Post Debridement (cm) - Length 0.7 -Post Debridement (cm) - Width 0.2 -Post Debridement (cm) - Depth 0.3 -Total Square (Post) (cm) 0.14 -Area of Debridement (cm) - Length 0.7 -Area of Debridement (cm) - Width 0.2 -Total Square (Area) (cm) 0.14 -Tunneling No -Undermining/Tunneling No -Circular Undermining No -Wound/Ulcer Outcome Not Healed -Ulcer Cleansing Rinsed/ Irrigated with Saline -Foul Odor after Cleansing No -Bioengineered Tissue No -Bleeding Controlled with Pressure -Treatment Response Procedure Tolerated Well -Offloading No -Debridement - Subq, 1st 20sq cm No #11 R Groin--superior -Time 11:31 -Correct Patient Yes -Correct Side, Site, Position Yes -Correct Procedure Yes -Procedure Performed Yes -Type of Procedure Debridement -Clinical Debridement Subcutaneous -Tissue Removed Subcutaneous -Post Debridement (cm) - Length 1.0 -Post Debridement (cm) - Width 0.5 -Post Debridement (cm) - Depth 0.1 -Total Square (Post) (cm) 0.50 -Area of Debridement (cm) - Length 1.0 -Area of Debridement (cm) - Width 0.5 -Total Square (Area) (cm) 0.50 -Tunneling No -Undermining/Tunneling No -Circular Undermining No -Wound/Ulcer Outcome Not Healed -Ulcer Cleansing Rinsed/ Irrigated with Saline -Foul Odor after Cleansing No -Bioengineered Tissue No -Bleeding Controlled with Pressure -Treatment Response Procedure Tolerated Well -Offloading No -Debridement - Subq, 1st 20sq cm Yes Pain Scale: 0-10 Numeric Is Patient Pain Free? Yes WC - Nurse 3 - General Ulcer D/C NN Start: 10/09/23 10:32 Freq: Status: Active Protocol: Activity Type Activity Date Activity User E-sign Co-sign Detail Recorded Client Recorded Date Recorded By Document 10/09/23 11:[address] [facility] Desktop 10/09/23 11:[address] [facility] 10/09/23 11:50 Wound Care Center Nurse 3 #12- R GROIN INFERIOR -Primary Dressing Applied Promogran Mary Matter -Other Dressing PT DRESSED WOUND -Primary Dressing Covered/Secured with Dry Gauze, Secured with Tape -Promogran Mary Matter 1 #11 R Groin--superior -Primary Dressing Applied Promogran Mary Matter -Other Dressing PT DRESSES WOUND -Primary Dressing Covered/Secured with Dry Gauze, Secured with Tape -Promogran Mary Matter 0 Treatment Response Procedure Tolerated Well Pain Scale: 0-10 Numeric Is Patient Pain Free? 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 (2) Soft tissue radionecrosis: CODE(S): L59.8 - Other specified disorders of the skin and subcutaneous tissue related to radiation; Y84.2 - Radiological procedure and radiotherapy as the cause of abnormal reaction of the patient, or of later complication, without mention of misadventure at the time of the procedure (3) soft tissue radiation injury: (4) Radiation injury: CODE(S): T66.XXXA - Radiation sickness, unspecified, initial encounter QUALIFIERS: Encounter type: subsequent encounter Qualified Code(s): T66.XXXD - Radiation sickness, unspecified, subsequent encounter (5) History of melanoma: CODE(S): Z85.820 - Personal history of malignant melanoma of skin PLAN: Plan Patient evaluated at the wound healing center. Wound care - Continue moistened Mary daily topped with gauze to the superior and the inferior ulcers. Instructed to wash the ulcers with soap and water and pat dry at the time of the dressing changes. Wound culture from 09/11/23 was positive for Streptococcus agalactiae (B), Corynebacterium striatum, MRSE, Staphylococcus lugdunensis, and Staphylococcus aureus. While hospitalized she was treated with IV Vancomycin and Zosyn. She was discharged home on Doxycycline and Augmentin. Follow up two weeks with either Dr. De Jesus or myself.
--- NOTE | 2023-10-13 11:37 | WC ---
10.09.23 RT INF/SUP GROIN
[2023-10-24 13:43] VITALS: BP 149/75; PULSE 88; RESP 18; TEMP 36.6; BMI 29.8
--- NOTE | 2023-10-24 14:02 | PCM.WC.HP ---
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 The patient was diagnosed with melanoma of the right calf in the 1969's. The melanoma was metastatic to lymph nodes. The patient underwent excision of her melanoma with lymphadenectomy in the right groin. She also underwent lengthy radiation treatments at the [facility] in [place], [place]. Melanoma recurred, and the patient was subsequently treated with monoclonal antibodies in 1984. However, due to the presence of severe radiation injury, persisting open wounds in the right thigh, MRSA infection, and severe radiation injury to the right femoral artery, the patient subsequently required right above-knee amputation in 2002. 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 Treatment included local ulcer care and hyperbaric oxygen therapy. She underwent a total of nearly 90 treatments of hyperbaric oxygen therapy. It is known that she tolerated the therapies well, and derived significant benefit. 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 She has also undergone several more sessions of hyperbaric oxygen therapy. She also received a series of 10 EpiFix allografts in the course of previous treatment. Each of the patient's prior courses of treatment in our facility have been protracted, with difficulties encountered in achieving complete healing. Her most recent course of treatment ended with successful healing and discharge in February 2021. The patient presented at this time with a recurrence of her right groin ulceration, again thought to be secondary to soft tissue radiation injury. The ulceration recurred spontaneously approximately 2-3 weeks prior to her presentation. The patient indicates that her health history has not changed since she was last treated in our facility. 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 Home Medications famotidine 20 mg tablet 20 mg PO QHS 06/20/17 [History Last Taken Unknown] pravastatin 20 mg tablet 20 mg PO QHS 90 days ##90 06/19/18 [History Last Taken Unknown] acetaminophen 650 mg tablet,extended release (8 Hour Pain Reliever) 1,300 mg PO Q8H PRN pain 09/11/23 [History Last Taken Unknown] calcium carbonate (Calcium 600) 1,200 mg PO DAILY 09/11/23 [History Last Taken Unknown] cholecalciferol (vitamin D3) 50 mcg (2,000 unit) tablet (Vitamin D3) 2,000 unit PO DAILY 09/11/23 [History Last Taken Unknown] amoxicillin 875 mg-potassium clavulanate 125 mg tablet 1 tab PO BID #16 tabs 09/14/23 [Rx Last Taken Unknown] doxycycline hyclate 100 mg capsule 100 mg PO BID #16 caps 09/14/23 [Rx Last Taken Unknown] Allergy/AdvReac Type Severity Reaction Status Date / Time No Known Allergies Allergy Verified 09/11/23 11:27 Family History Other Heart disease Hypertension Surgical History History of appendectomy Hx of AKA (above knee amputation) Social History Smoking Status: Former smoker alcohol intake: current alcohol intake frequency: holidays/special occasions only Vital Signs Vital Signs Vital Signs: 10/24/23 13:43 Temperature 98 F Temperature Source Temporal Pulse Rate 88 Respiratory Rate 18 Blood Pressure 149/75 H Blood Pressure Mean 99 Blood Pressure Source Monitor Blood Pressure Position Semi-Fowlers Blood Pressure Location Left Arm Weight Weight: 196 lb 1.696 oz Body Mass Index (BMI) 29.8 Physical Exam Const alert, oriented x3, no apparent distress and well nourished General Appearance: cooperative, comfortable and well kempt Orientation / Consciousness: awake, oriented to person, oriented to place and oriented to time Exam Limitations: no limitations HEENT normocephalic and head/scalp atraumatic Nose: external nose normal Eyes PERRL and EOMs intact bilaterally General Eye: normal appearance of both eyes Neck full ROM Resp normal respiratory effort, normal air movement, no retractions and no use of accessory muscles Effort and Inspection: able to speak in complete sentences Extremity Extremity Narrative: Right AKA erythematous and warm to palpation. Line drawn to leidy the area of redness. Skin Wound Narrative: The patient's right groin ulceration persists. It has decreased in size significantly in recent weeks. Dimensions are documented elsewhere. There is no sign of infection or cellulitis at the site of her right groin wound. There is a small amount of bioburden. More distally, her right above-knee amputation stump is intact. There is no sign of infection or cellulitis. There is no drainage or odor. No erythema is appreciated. Neuro oriented x3, CN's II-XII intact bilaterally, moves all extremities and no focal motor deficits Sensorium / Orientation: awake, alert, oriented to person, oriented to place and oriented to time Psych affect normal Appearance: grossly normal Debridement Note Debridement Note Wound debrided: Right groin wound Laterality: Right Type of Debridement: Excisional debridement Anesthesia Used: 5% Lidocaine Gel Depth: Down to and including healthy tissue and in the subcutaneous layer Percentage of wound debrided: 100 Instrument Used: 3mm curette Tissue Removed: Bioburden Severity: Fat Layer Exposed Amount of bleeding with debridement: Mild Bleeding Controlled with: Compression and gauze Patient tolerated procedure: Patient tolerated procedure well Post-Debridement Measurements and Additional Note: Post-Debridement Measurements/Treatment - Nurse 1 - General Ulcer Assessment Start: 10/09/23 10:32 Freq: Status: Active Protocol: MICHAEL Activity Type Activity Date Activity User E-sign Co-sign Detail Recorded Client Recorded Date Recorded By Document 10/09/23 10:32 KW Desktop 10/09/23 10:43 KW Document 10/24/23 13:43 RB Desktop 10/24/23 13:46 RB 10/09/23 10/24/23 10:32 13:43 - Today's Visit Information Type of service Follow-up Visit Follow-up 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/SNACK BAR ATTENDANT (Physician/SNACK BAR ATTENDANT ) ) Arrival Mode Ambulatory Ambulatory, Crutches Transfer Assistance None Patient Identification Verified (Name & Yes Yes ) Patient Requires Transmission-Based No Precautions Height and Weight Body Mass Index (BMI) 29.8 29.8 BMI Classification Overweight Overweight Vital Signs Temperature (97.8 F-99.1 F) 97.6 F L 98 F Temperature Source Temporal Temporal Pulse Rate (60-100) 81 88 Pulse Location Monitor Monitor Respiratory Rate (12-18) 18 18 Respiratory rate source Observation Observation Oxygen Delivery Method Room Air Blood Pressure (90/60-120/80) 145/79 H 149/75 H Blood Pressure Mean 101 99 Source Monitor Monitor Position Sitting Semi-Fowlers Blood Pressure Location Left Arm Left Arm History Since Last Visit- (Skip if this is Patient's initial visit) Have you changed medications since your No No last visit? Any new allergies or adverse reactions No No Had a fall/change in ADL's that may No No increase risk of falls Signs or symptoms of abuse and/or No No neglect since last visit Have you been in the hospital since your No No last visit? Has dressing in place as prescribed Yes Yes Has compression in place as prescribed N/A No Has offloadiing in place as prescribed N/A No Experienced any changes in pain level or No No management Left Footwear Regular Shoe Right Footwear Regular Shoe Pain Scale: 0-10 Numeric Is Patient Pain Free? Yes Yes WC - Nurse 1 - General Ulcer Measurement Start: 10/09/23 10:32 Freq: Status: Active Protocol: Activity Type Activity Date Activity User E-sign Co-sign Detail Recorded Client Recorded Date Recorded By Document 10/09/23 10:32 KW Desktop 10/09/23 10:43 KW Document 10/24/23 13:43 RB Desktop 10/24/23 13:46 RB 10/09/23 10/24/23 10:32 13:43 Wound Center Nurse 1 #12- R GROIN INFERIOR -Combined with other wound No -Current Size (cm) - Length 0.6 0.5 -Current Size (cm) - Width 0.2 0.2 -Current Size (cm) - Depth 0.4 0.3 -Total Square Cm 0.12 0.10 -Date of Last Picture (Recall this 10/09/23 field) -Photo Taken Yes -Tunneling No -Undermining/Tunneling No -Circular Undermining No -Exudate Amt Small Medium -Exudate Type Serosanguineous Serosanguineous -Wound Margin Distinct, Distinct, Outline Outline Attached Attached -Granulation Amt Large (67-100%) Medium (34-66%) -Granulation Quality [place] -Slough/Fibrin Yes -Necrosis Amt Medium (34-66%) -Necrotic Tissue Type Adherent Slough -Structure Exposed N/A -Texture (Blanche-wound Skin Appearance) Assessed Assessed, Scarring -Moisture (Blanche-wound Skin Appearance) Assessed,Dry/ Assessed Scaly -Color (Blanche-wound Skin Appearance) Assessed, Assessed Erythema -Temperature (Blanche-wound Skin No Abnormality No Abnormality Appearance) (Pt Warm) (Pt Warm) -Tenderness on Palpation (Blanche-wound No Skin Appearance) -Ulcer Cleansing Rinsed/ Wound Cleanser Irrigated with Saline -Foul Odor after Cleansing No No -Anesthetic Used 4% Lidocaine 4% Lidocaine Solution Solution #11 R Groin--superior -Combined with other wound No -Current Size (cm) - Length 0.8 0.4 -Current Size (cm) - Width 0.2 0.3 -Current Size (cm) - Depth 0.2 0.2 -Total Square Cm 0.16 0.12 -Date of Last Picture (Recall this 10/09/23 field) -Photo Taken Yes -Tunneling No -Undermining/Tunneling No -Circular Undermining No -Exudate Amt Medium Medium -Exudate Type Serosanguineous Serosanguineous -Wound Margin Distinct, Distinct, Outline Outline Attached Attached -Granulation Amt Large (67-100%) Medium (34-66%) -Granulation Quality [place] -Slough/Fibrin Yes -Necrosis Amt Small (1-33%) Medium (34-66%) -Necrotic Tissue Type Adherent Slough Adherent Slough -Structure Exposed N/A -Texture (Blanche-wound Skin Appearance) Assessed Assessed, Scarring -Moisture (Blanche-wound Skin Appearance) No Abnormality, Assessed Dry/Scaly -Color (Blanche-wound Skin Appearance) Assessed, Assessed Erythema -Temperature (Blanche-wound Skin No Abnormality No Abnormality Appearance) (Pt Warm) (Pt Warm) -Tenderness on Palpation (Blanche-wound No Skin Appearance) -Ulcer Cleansing Rinsed/ Wound Cleanser Irrigated with Saline -Foul Odor after Cleansing No -Anesthetic Used 4% Lidocaine 4% Lidocaine Solution Solution WC - Nurse 2 - General Ulcer CM Notes Start: 10/09/23 10:32 Freq: Status: Active Protocol: Activity Type Activity Date Activity User E-sign Co-sign Detail Recorded Client Recorded Date Recorded By Document 10/09/23 11:27 Laptop 10/09/23 11:34 Document 10/24/23 13:58 Laptop 10/24/23 14:01 10/09/23 10/24/23 11:27 13:58 Wound Center Nurse 2 #12- R GROIN INFERIOR -Time 11:30 14:00 -Correct Patient Yes Yes -Correct Side, Site, Position Yes Yes -Correct Procedure Yes Yes -Procedure Performed Yes Yes -Type of Procedure Debridement Debridement -Clinical Debridement Subcutaneous Subcutaneous -Tissue Removed Subcutaneous Subcutaneous -Post Debridement (cm) - Length 0.7 0.5 -Post Debridement (cm) - Width 0.2 0.3 -Post Debridement (cm) - Depth 0.3 0.3 -Total Square (Post) (cm) 0.14 0.15 -Area of Debridement (cm) - Length 0.7 0.5 -Area of Debridement (cm) - Width 0.2 0.3 -Total Square (Area) (cm) 0.14 0.15 -Tunneling No No -Undermining/Tunneling No No -Circular Undermining No No -Wound/Ulcer Outcome Not Healed Not Healed -Ulcer Cleansing Rinsed/ Rinsed/ Irrigated with Irrigated with Saline Saline -Foul Odor after Cleansing No No -Bioengineered Tissue No No -Bleeding Controlled with Pressure Pressure -Treatment Response Procedure Procedure Tolerated Well Tolerated Well -Offloading No No -Debridement - Subq, 1st 20sq cm No No #11 R Groin--superior -Time 11:31 14:01 -Correct Patient Yes Yes -Correct Side, Site, Position Yes Yes -Correct Procedure Yes Yes -Procedure Performed Yes Yes -Type of Procedure Debridement Debridement -Clinical Debridement Subcutaneous Subcutaneous -Tissue Removed Subcutaneous Subcutaneous -Post Debridement (cm) - Length 1.0 0.8 -Post Debridement (cm) - Width 0.5 0.4 -Post Debridement (cm) - Depth 0.1 0.4 -Total Square (Post) (cm) 0.50 0.32 -Area of Debridement (cm) - Length 1.0 0.8 -Area of Debridement (cm) - Width 0.5 0.4 -Total Square (Area) (cm) 0.50 0.32 -Tunneling No No -Undermining/Tunneling No No -Circular Undermining No No -Wound/Ulcer Outcome Not Healed Not Healed -Ulcer Cleansing Rinsed/ Rinsed/ Irrigated with Irrigated with Saline Saline -Foul Odor after Cleansing No No -Bioengineered Tissue No No -Bleeding Controlled with Pressure Pressure -Treatment Response Procedure Procedure Tolerated Well Tolerated Well -Offloading No No -Debridement - Subq, 1st 20sq cm Yes Yes Pain Scale: 0-10 Numeric Is Patient Pain Free? Yes Yes - Nurse 3 - General Ulcer D/C NN Start: 10/09/23 10:32 Freq: Status: Active Protocol: Activity Type Activity Date Activity User E-sign Co-sign Detail Recorded Client Recorded Date Recorded By Document 10/09/23 11:50 [facility] Desktop 10/09/23 11:53 [facility] 10/09/23 11:50 Wound Care Center Nurse 3 #12- R GROIN INFERIOR -Primary Dressing Applied Promogran Mary Matter -Other Dressing PT DRESSED WOUND -Primary Dressing Covered/Secured with Dry Gauze, Secured with Tape -Promogran Mary Matter 1 #11 R Groin--superior -Primary Dressing Applied Promogran Mary Matter -Other Dressing PT DRESSES WOUND -Primary Dressing Covered/Secured with Dry Gauze, Secured with Tape -Promogran Mary Matter 0 Treatment Response Procedure Tolerated Well Pain Scale: 0-10 Numeric Is Patient Pain Free? 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 (2) Soft tissue radionecrosis: CODE(S): L59.8 - Other specified disorders of the skin and subcutaneous tissue related to radiation; Y84.2 - Radiological procedure and radiotherapy as the cause of abnormal reaction of the patient, or of later complication, without mention of misadventure at the time of the procedure (3) soft tissue radiation injury: (4) Radiation injury: CODE(S): T66.XXXA - Radiation sickness, unspecified, initial encounter QUALIFIERS: Encounter type: subsequent encounter Qualified Code(s): T66.XXXD - Radiation sickness, unspecified, subsequent encounter (5) History of melanoma: CODE(S): Z85.820 - Personal history of malignant melanoma of skin PLAN: Plan Patient is well-known to our facility, with a history of malignant melanoma in her right lower extremity, for which she received radiation therapy. Right groin wound is due to soft tissue radionecrosis, and has been difficult to heal, requiring lengthy periods of treatment, including hyperbaric oxygen therapy. The patient has shown significant improvement in recent weeks, relative to her right groin wound. However, it is noted that she has required hospitalization from September 10 to September 14, 2023. This was required for a right stump infection. Cultures at that time were positive for Streptococcus agalactiae (B), Corynebacterium striatum, MRSE, Staphylococcus lugdunensis, and Staphylococcus aureus. While hospitalized she was treated with IV Vancomycin and Zosyn. She was discharged home on Doxycycline and Augmentin. Since her discharge, she has experienced a recurrence of her stump infection, for which she has been treated by her primary care physician with doxycycline orally for 3 weeks, and the stump infection now appears to have been resolved. Because of her refraining from the use of her prosthesis, her stump has developed swelling, and she has been advised to seek management with her powder hand for management of the swelling, which will involve the use of a stump manager recovery and appropriate monitoring of her prosthetic use. Relative to the patient's right groin ulceration, we are to continue the use of moistened Mary topically on a daily basis. It appears as though the patient has derived significant benefit from this protocol in recent weeks. Patient is to return in 1 week for reassessment. Total time: 22 minutes
[2023-10-31 14:27] VITALS: BP 144/69; PULSE 84; RESP 18; TEMP 35.9; BMI 29.8
--- NOTE | 2023-10-31 14:55 | HP.PCM_ITS ---
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 The patient was diagnosed with melanoma of the right calf in the 1969's. The melanoma was metastatic to lymph nodes. The patient underwent excision of her melanoma with lymphadenectomy in the right groin. She also underwent lengthy radiation treatments at the [facility] in [place], [place]. Melanoma recurred, and the patient was subsequently treated with monoclonal antibodies in 1984. However, due to the presence of severe radiation injury, persisting open wounds in the right thigh, MRSA infection, and severe radiation injury to the right femoral artery, the patient subsequently required right above-knee amputation in 2002. 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 Treatment included local ulcer care and hyperbaric oxygen therapy. She underwent a total of nearly 90 treatments of hyperbaric oxygen therapy. It is known that she tolerated the therapies well, and derived significant benefit. 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 She has also undergone several more sessions of hyperbaric oxygen therapy. She also received a series of 10 EpiFix allografts in the course of previous treatment. Each of the patient's prior courses of treatment in our facility have been protracted, with difficulties encountered in achieving complete healing. Her most recent course of treatment ended with successful healing and discharge in February 2021. The patient presented at this time with a recurrence of her right groin ulceration, again thought to be secondary to soft tissue radiation injury. The ulceration recurred spontaneously approximately 2-3 weeks prior to her presentation. The patient indicates that her health history has not changed since she was last treated in our facility. Progress of Wound: Patient was hospitalized from 09/11/23-09/14/23 for cellulitis and positive wound cultures. She states she is feeling much better since coming home. She no longer has any right AKA stump erythema or edema. She has been able to tolerate wearing her prosthesis. Her right groin superior ulcer is stable, and slightly smaller in size. The right groin inferior ulcer cluster is now healed. 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 Home Medications famotidine 20 mg tablet 20 mg PO QHS 06/20/17 [History Last Taken Unknown] pravastatin 20 mg tablet 20 mg PO QHS 90 days ##90 12/26/17 [History Last Taken Unknown] acetaminophen 650 mg tablet,extended release (8 Hour Pain Reliever) 1,300 mg PO Q8H PRN pain 09/11/23 [History Last Taken Unknown] calcium carbonate (Calcium 600) 1,200 mg PO DAILY 09/11/23 [History Last Taken Unknown] cholecalciferol (vitamin D3) 50 mcg (2,000 unit) tablet (Vitamin D3) 2,000 unit PO DAILY 09/11/23 [History Last Taken Unknown] amoxicillin 875 mg-potassium clavulanate 125 mg tablet 1 tab PO BID #16 tabs 09/14/23 [Rx Last Taken Unknown] doxycycline hyclate 100 mg capsule 100 mg PO BID #16 caps 09/14/23 [Rx Last Taken Unknown] Allergy/AdvReac Type Severity Reaction Status Date / Time No Known Allergies Allergy Verified 09/11/23 11:27 Family History Other Heart disease Hypertension Surgical History History of appendectomy Hx of AKA (above knee amputation) Social History Smoking Status: Former smoker alcohol intake: current alcohol intake frequency: holidays/special occasions only Vital Signs Vital Signs Vital Signs: 10/31/23 14:27 Temperature 96.6 F L Temperature Source Temporal Pulse Rate 84 Respiratory Rate 18 Blood Pressure 144/69 H Blood Pressure Mean 94 Blood Pressure Source Monitor Blood Pressure Position Semi-Fowlers Blood Pressure Location Left Arm Weight Weight: 196 lb 1.696 oz Body Mass Index (BMI) 29.8 Physical Exam Const alert, oriented x3, no apparent distress and well nourished General Appearance: cooperative, comfortable and well kempt Orientation / Consciousness: awake, oriented to person, oriented to place and oriented to time Exam Limitations: no limitations HEENT normocephalic and head/scalp atraumatic Nose: external nose normal Eyes PERRL and EOMs intact bilaterally General Eye: normal appearance of both eyes Neck full ROM Resp normal respiratory effort, normal air movement, no retractions and no use of accessory muscles Effort and Inspection: able to speak in complete sentences Extremity Extremity Narrative: Right AKA erythematous and warm to palpation. Line drawn to leidy the area of redness. Skin Wound Narrative: The patient's right groin ulceration persists. It continues to diminish in size. It is generally pink and healthy appearance, with active granulation tissue. There is no sign of infection or cellulitis. Dimensions are documented elsewhere. There is a small amount of bioburden. More distally, her right above-knee amputation stump is intact. There is no sign of infection or cellulitis. There is no drainage or odor. No erythema is appreciated. Neuro oriented x3, CN's II-XII intact bilaterally, moves all extremities and no focal motor deficits Sensorium / Orientation: awake, alert, oriented to person, oriented to place and oriented to time Psych affect normal Appearance: grossly normal Debridement Note Debridement Note Wound debrided: Right groin wound Laterality: Right Type of Debridement: Excisional debridement Anesthesia Used: 5% Lidocaine Gel Depth: Down to and including healthy tissue and in the subcutaneous layer Percentage of wound debrided: 100 Instrument Used: 3mm curette Tissue Removed: Bioburden Severity: Fat Layer Exposed Amount of bleeding with debridement: Mild Bleeding Controlled with: Compression and gauze Patient tolerated procedure: Patient tolerated procedure well Post-Debridement Measurements and Additional Note: Post-Debridement Measurements/Treatment - Nurse 1 - General Ulcer Assessment Start: 10/09/23 10:32 Freq: Status: Active Protocol: [email or web address] Activity Type Activity Date Activity User E-sign Co-sign Detail Recorded Client Recorded Date Recorded By Document 10/09/23 10:32 KW Desktop 10/09/23 10:43 KW Document 10/24/23 13:43 RB Desktop 10/24/23 13:46 RB Document 10/31/23 14:27 RB Desktop 10/31/23 14:30 RB 10/09/23 10/24/23 10/31/23 10:32 13:43 14:27 - Today's Visit Information Type of service Follow-up Visit Follow-up Visit Follow-up 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/METER TESTER PRIMARY (Physician/METER TESTER PRIMARY (Physician/METER TESTER PRIMARY ) ) ) Arrival Mode Ambulatory Ambulatory, Ambulatory Crutches Transfer Assistance None None Patient Identification Verified (Name & Yes Yes Yes ) Patient Requires Transmission-Based No No Precautions Height and Weight Body Mass Index (BMI) 29.8 29.8 29.8 BMI Classification Overweight Overweight Overweight Vital Signs Temperature (97.8 F-99.1 F) 97.6 F L 98 F 96.6 F L Temperature Source Temporal Temporal Temporal Pulse Rate (60-100) 81 88 84 Pulse Location Monitor Monitor Monitor Respiratory Rate (12-18) 18 18 18 Respiratory rate source Observation Observation Observation Oxygen Delivery Method Room Air Blood Pressure (90/60-120/80) 145/79 H 149/75 H 144/69 H Blood Pressure Mean 101 99 94 Source Monitor Monitor Monitor Position Sitting Semi-Fowlers Semi-Fowlers Blood Pressure Location Left Arm Left Arm Left Arm History Since Last Visit- (Skip if this is Patient's initial visit) Have you changed medications since your No No No last visit? Any new allergies or adverse reactions No No No Had a fall/change in ADL's that may No No No increase risk of falls Signs or symptoms of abuse and/or No No No neglect since last visit Have you been in the hospital since your No No No last visit? Has dressing in place as prescribed Yes Yes Yes Has compression in place as prescribed N/A No No Has offloadiing in place as prescribed N/A No No Experienced any changes in pain level or No No No management Left Footwear Regular Shoe Right Footwear Regular Shoe Pain Scale: 0-10 Numeric Is Patient Pain Free? Yes Yes Yes WC - Nurse 1 - General Ulcer Measurement Start: 10/09/23 10:32 Freq: Status: Active Protocol: Activity Type Activity Date Activity User E-sign Co-sign Detail Recorded Client Recorded Date Recorded By Document 10/09/23 10:32 KW Desktop 10/09/23 10:43 KW Document 10/24/23 13:43 RB Desktop 10/24/23 13:46 RB Document 10/31/23 14:27 RB Desktop 10/31/23 14:30 RB 10/09/23 10/24/23 10/31/23 10:32 13:43 14:27 Wound Center Nurse 1 #12- R GROIN INFERIOR -Combined with other wound No No -Current Size (cm) - Length 0.6 0.5 0.4 -Current Size (cm) - Width 0.2 0.2 0.1 -Current Size (cm) - Depth 0.4 0.3 0.3 -Total Square Cm 0.12 0.10 0.04 -Date of Last Picture (Recall this 10/09/23 field) -Photo Taken Yes -Tunneling No No -Undermining/Tunneling No No -Circular Undermining No No -Exudate Amt Small Medium Medium -Exudate Type Serosanguineous Serosanguineous Serosanguineous -Wound Margin Distinct, Distinct, Thickened & Outline Outline Rolled Under Attached Attached -Granulation Amt Large (67-100%) Medium (34-66%) Medium (34-66%) -Granulation Quality Boling Boling Boling -Slough/Fibrin Yes Yes -Necrosis Amt Medium (34-66%) Medium (34-66%) -Necrotic Tissue Type Adherent Slough Adherent Slough -Structure Exposed N/A N/A -Texture (Blanche-wound Skin Appearance) Assessed Assessed, Assessed, Scarring Scarring -Moisture (Blanche-wound Skin Appearance) Assessed,Dry/ Assessed Assessed Scaly -Color (Blanche-wound Skin Appearance) Assessed, Assessed Assessed Erythema -Temperature (Blanche-wound Skin No Abnormality No Abnormality No Abnormality Appearance) (Pt Warm) (Pt Warm) (Pt Warm) -Tenderness on Palpation (Blanche-wound No No Skin Appearance) -Ulcer Cleansing Rinsed/ Wound Cleanser Wound Cleanser Irrigated with Saline -Foul Odor after Cleansing No No No -Anesthetic Used 4% Lidocaine 4% Lidocaine 4% Lidocaine Solution Solution Solution #11 R Groin--superior -Combined with other wound No No -Current Size (cm) - Length 0.8 0.4 0.5 -Current Size (cm) - Width 0.2 0.3 0.4 -Current Size (cm) - Depth 0.2 0.2 0.3 -Total Square Cm 0.16 0.12 0.20 -Date of Last Picture (Recall this 10/09/23 field) -Photo Taken Yes -Tunneling No No -Undermining/Tunneling No No -Circular Undermining No No -Exudate Amt Medium Medium Medium -Exudate Type Serosanguineous Serosanguineous Serosanguineous -Wound Margin Distinct, Distinct, Thickened & Outline Outline Rolled Under Attached Attached -Granulation Amt Large (67-100%) Medium (34-66%) Medium (34-66%) -Granulation Quality Boling Boling Boling -Slough/Fibrin Yes Yes -Necrosis Amt Small (1-33%) Medium (34-66%) Medium (34-66%) -Necrotic Tissue Type Adherent Slough Adherent Slough Adherent Slough -Structure Exposed N/A N/A -Texture (Blanche-wound Skin Appearance) Assessed Assessed, Assessed, Scarring Scarring -Moisture (Blanche-wound Skin Appearance) No Abnormality, Assessed Assessed Dry/Scaly -Color (Blanche-wound Skin Appearance) Assessed, Assessed Assessed Erythema -Temperature (Blanche-wound Skin No Abnormality No Abnormality No Abnormality Appearance) (Pt Warm) (Pt Warm) (Pt Warm) -Tenderness on Palpation (Blanche-wound No No Skin Appearance) -Ulcer Cleansing Rinsed/ Wound Cleanser Wound Cleanser Irrigated with Saline -Foul Odor after Cleansing No No -Anesthetic Used 4% Lidocaine 4% Lidocaine 4% Lidocaine Solution Solution Solution WC - Nurse 2 - General Ulcer CM Notes Start: 10/09/23 10:32 Freq: Status: Active Protocol: Activity Type Activity Date Activity User E-sign Co-sign Detail Recorded Client Recorded Date Recorded By Document 10/09/23 11:27 Laptop 10/09/23 11:34 Document 10/24/23 13:58 Laptop 10/24/23 14:01 Document 10/31/23 14:46 Laptop 10/31/23 14:51 10/09/23 10/24/23 10/31/23 11:27 13:58 14:46 Wound Center Nurse 2 #12- R GROIN INFERIOR -Time 11:30 14:00 -Correct Patient Yes Yes No -Correct Side, Site, Position Yes Yes No -Correct Procedure Yes Yes No -Procedure Performed Yes Yes No -Type of Procedure Debridement Debridement -Clinical Debridement Subcutaneous Subcutaneous -Tissue Removed Subcutaneous Subcutaneous -Post Debridement (cm) - Length 0.7 0.5 0 -Post Debridement (cm) - Width 0.2 0.3 0 -Post Debridement (cm) - Depth 0.3 0.3 0 -Total Square (Post) (cm) 0.14 0.15 0 -Area of Debridement (cm) - Length 0.7 0.5 0 -Area of Debridement (cm) - Width 0.2 0.3 0 -Total Square (Area) (cm) 0.14 0.15 0 -Tunneling No No -Undermining/Tunneling No No -Circular Undermining No No -Wound/Ulcer Outcome Not Healed Not Healed Healed- Epithelialized -Ulcer Cleansing Rinsed/ Rinsed/ Irrigated with Irrigated with Saline Saline -Foul Odor after Cleansing No No -Bioengineered Tissue No No -Bleeding Controlled with Pressure Pressure -Treatment Response Procedure Procedure Tolerated Well Tolerated Well -Offloading No No -Debridement - Subq, 1st 20sq cm No No #11 R Groin--superior -Time 11:31 14:01 14:49 -Correct Patient Yes Yes Yes -Correct Side, Site, Position Yes Yes Yes -Correct Procedure Yes Yes Yes -Procedure Performed Yes Yes Yes -Type of Procedure Debridement Debridement Debridement -Clinical Debridement Subcutaneous Subcutaneous Subcutaneous -Tissue Removed Subcutaneous Subcutaneous Subcutaneous -Post Debridement (cm) - Length 1.0 0.8 0.7 -Post Debridement (cm) - Width 0.5 0.4 0.4 -Post Debridement (cm) - Depth 0.1 0.4 0.3 -Total Square (Post) (cm) 0.50 0.32 0.28 -Area of Debridement (cm) - Length 1.0 0.8 0.7 -Area of Debridement (cm) - Width 0.5 0.4 0.4 -Total Square (Area) (cm) 0.50 0.32 0.28 -Tunneling No No No -Undermining/Tunneling No No No -Circular Undermining No No No -Wound/Ulcer Outcome Not Healed Not Healed Not Healed -Ulcer Cleansing Rinsed/ Rinsed/ Rinsed/ Irrigated with Irrigated with Irrigated with Saline Saline Saline -Foul Odor after Cleansing No No No -Bioengineered Tissue No No No -Bleeding Controlled with Pressure Pressure Pressure -Treatment Response Procedure Procedure Procedure Tolerated Well Tolerated Well Tolerated Well -Offloading No No No -Debridement - Subq, 1st 20sq cm Yes Yes Yes Pain Scale: 0-10 Numeric Is Patient Pain Free? Yes Yes No WC - Nurse 3 - General Ulcer D/C NN Start: 10/09/23 10:32 Freq: Status: Active Protocol: Activity Type Activity Date Activity User E-sign Co-sign Detail Recorded Client Recorded Date Recorded By Document 10/09/23 11:50 [facility] Desktop 10/09/23 11:53 [facility] 10/09/23 11:50 Wound Care Center Nurse 3 #12- R GROIN INFERIOR -Primary Dressing Applied Promogran Mary Matter -Other Dressing PT DRESSED WOUND -Primary Dressing Covered/Secured with Dry Gauze, Secured with Tape -Promogran Mary Matter 1 #11 R Groin--superior -Primary Dressing Applied Promogran Mary Matter -Other Dressing PT DRESSES WOUND -Primary Dressing Covered/Secured with Dry Gauze, Secured with Tape -Promogran Mary Matter 0 Treatment Response Procedure Tolerated Well Pain Scale: 0-10 Numeric Is Patient Pain Free? 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 (2) Soft tissue radionecrosis: CODE(S): L59.8 - Other specified disorders of the skin and subcutaneous tissue related to radiation; Y84.2 - Radiological procedure and radiotherapy as the cause of abnormal reaction of the patient, or of later complication, without mention of misadventure at the time of the procedure (3) soft tissue radiation injury: (4) Radiation injury: CODE(S): T66.XXXA - Radiation sickness, unspecified, initial encounter QUALIFIERS: Encounter type: subsequent encounter Qualified Code(s): T66.XXXD - Radiation sickness, unspecified, subsequent encounter (5) History of melanoma: CODE(S): Z85.820 - Personal history of malignant melanoma of skin PLAN: Plan The patient is well-known to our facility, with a history of malignant melanoma in her right lower extremity, for which she received radiation therapy. Her right groin wound is due to soft tissue radionecrosis, and has been difficult to heal, requiring lengthy periods of treatment, including hyperbaric oxygen therapy. The patient has shown significant improvement in recent weeks, relative to her right groin wound. However, it is noted that she has required hospitalization from September 10 to September 14, 2023. This was required for a right stump infection. Cultures at that time were positive for Streptococcus agalactiae (B), Corynebacterium striatum, MRSE, Staphylococcus lugdunensis, and Staphylococcus aureus. While hospitalized she was treated with IV Vancomycin and Zosyn. She was discharged home on Doxycycline and Augmentin. Since her discharge, she experienced a recurrence of her stump infection, for which she has been treated by her primary care physician with doxycycline orally for 3 weeks, and the stump infection now appears to have resolved. She remains in the final stages of her doxycycline antibiotic orally. Because of her refraining from the use of her prosthesis, her stump has developed swelling, and she has been collaborating with her river transportation worker for management of the swelling, which will involve the use of a stump cast iron drain pipe layer and appropriate monitoring of her prosthetic use. Relative to the patient's right groin ulceration, we are to continue the use of moistened Mary topically on a daily basis. It appears as though the patient has derived significant benefit from this protocol in recent weeks. The patient is to return in 2 weeks for reassessment. Total time: 21 minutes
--- NOTE | 2023-11-14 15:57 | PCM.WC.HP ---
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 The patient was diagnosed with melanoma of the right calf in the 1969's. The melanoma was metastatic to lymph nodes. The patient underwent excision of her melanoma with lymphadenectomy in the right groin. She also underwent lengthy radiation treatments at the [facility] in [place], [place]. Melanoma recurred, and the patient was subsequently treated with monoclonal antibodies in 1984. However, due to the presence of severe radiation injury, persisting open wounds in the right thigh, MRSA infection, and severe radiation injury to the right femoral artery, the patient subsequently required right above-knee amputation in 2002. 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 Treatment included local ulcer care and hyperbaric oxygen therapy. She underwent a total of nearly 90 treatments of hyperbaric oxygen therapy. It is known that she tolerated the therapies well, and derived significant benefit. 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 She has also undergone several more sessions of hyperbaric oxygen therapy. She also received a series of 10 EpiFix allografts in the course of previous treatment. Each of the patient's prior courses of treatment in our facility have been protracted, with difficulties encountered in achieving complete healing. Her most recent course of treatment ended with successful healing and discharge in February 2021. The patient presented at this time with a recurrence of her right groin ulceration, again thought to be secondary to soft tissue radiation injury. The ulceration recurred spontaneously approximately 2-3 weeks prior to her presentation. The patient indicates that her health history has not changed since she was last treated in our facility. Progress of Wound: Patient was hospitalized from 09/11/23-09/14/23 for cellulitis of her right stump and positive wound cultures. She no longer has any right AKA stump erythema or edema. She has been able to tolerate wearing her prosthesis. She has completed her recent course of oral doxycycline. Her right groin superior ulcer is stable, and slightly smaller in size. The right groin inferior ulcer cluster is now healed. 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 Home Medications famotidine 20 mg tablet 20 mg PO QHS 06/20/17 [History Last Taken Unknown] pravastatin 20 mg tablet 20 mg PO QHS 90 days ##90 12/26/17 [History Last Taken Unknown] acetaminophen 650 mg tablet,extended release (8 Hour Pain Reliever) 1,300 mg PO Q8H PRN pain 09/11/23 [History Last Taken Unknown] calcium carbonate (Calcium 600) 1,200 mg PO DAILY 09/11/23 [History Last Taken Unknown] cholecalciferol (vitamin D3) 50 mcg (2,000 unit) tablet (Vitamin D3) 2,000 unit PO DAILY 09/11/23 [History Last Taken Unknown] amoxicillin 875 mg-potassium clavulanate 125 mg tablet 1 tab PO BID #16 tabs 09/14/23 [Rx Last Taken Unknown] doxycycline hyclate 100 mg capsule 100 mg PO BID #16 caps 09/14/23 [Rx Last Taken Unknown] celecoxib 100 mg capsule 200 mg PO BID 11/14/23 [History Last Taken Unknown] Allergy/AdvReac Type Severity Reaction Status Date / Time No Known Allergies Allergy Verified 09/11/23 11:27 Family History Other Heart disease Hypertension Surgical History History of appendectomy Hx of AKA (above knee amputation) Social History Smoking Status: Former smoker alcohol intake: current alcohol intake frequency: holidays/special occasions only Vital Signs Vital Signs Vital Signs: Weight Weight: 196 lb 1.696 oz Body Mass Index (BMI) 29.8 Physical Exam Const alert, oriented x3, no apparent distress and well nourished General Appearance: cooperative, comfortable and well kempt Orientation / Consciousness: awake, oriented to person, oriented to place and oriented to time Exam Limitations: no limitations HEENT normocephalic and head/scalp atraumatic Nose: external nose normal Eyes PERRL and EOMs intact bilaterally General Eye: normal appearance of both eyes Neck full ROM Resp normal respiratory effort, normal air movement, no retractions and no use of accessory muscles Effort and Inspection: able to speak in complete sentences Extremity Extremity Narrative: Right AKA erythematous and warm to palpation. Line drawn to leidy the area of redness. Skin Wound Narrative: The patient's right groin ulceration persists. It continues to diminish in size. It is generally pink and healthy appearance, with active granulation tissue. There is no sign of infection or cellulitis. Dimensions are documented elsewhere. There is a small amount of bioburden. More distally, her right above-knee amputation stump is intact. There is no sign of infection or cellulitis. There is no drainage or odor. No erythema is appreciated. Hair: normal Neuro oriented x3, CN's II-XII intact bilaterally, moves all extremities and no focal motor deficits Sensorium / Orientation: awake, alert, oriented to person, oriented to place and oriented to time Psych affect normal Appearance: grossly normal Debridement Note Debridement Note Wound debrided: Right groin wound Laterality: Right Type of Debridement: Excisional debridement Anesthesia Used: 5% Lidocaine Gel Depth: Down to and including healthy tissue and in the subcutaneous layer Percentage of wound debrided: 100 Instrument Used: 3mm curette Tissue Removed: Bioburden Severity: Fat Layer Exposed Amount of bleeding with debridement: Mild Bleeding Controlled with: Compression and gauze Patient tolerated procedure: Patient tolerated procedure well Post-Debridement Measurements and Additional Note: Post-Debridement Measurements/Treatment - Nurse 1 - General Ulcer Assessment Start: 10/09/23 10:32 Freq: Status: Active Protocol: MICHAEL Activity Type Activity Date Activity User E-sign Co-sign Detail Recorded Client Recorded Date Recorded By Document 10/09/23 10:32 KW Desktop 10/09/23 10:43 KW Document 10/24/23 13:43 RB Desktop 10/24/23 13:46 RB Document 10/31/23 14:27 RB Desktop 10/31/23 14:30 RB 10/09/23 10/24/23 10/31/23 10:32 13:43 14:27 - Today's Visit Information Type of service Follow-up Visit Follow-up Visit Follow-up 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/SM[employer]ODUCTS ASSEMBLER (Physician/[employer]ODUCTS ASSEMBLER (Physician/[employer] ASSEMBLER ) ) ) Arrival Mode Ambulatory Ambulatory, Ambulatory Crutches Transfer Assistance None None Patient Identification Verified (Name & Yes Yes Yes ) Patient Requires Transmission-Based No No Precautions Height and Weight Body Mass Index (BMI) 29.8 29.8 29.8 BMI Classification Overweight Overweight Overweight Vital Signs Temperature (97.8 F-99.1 F) 97.6 F L 98 F 96.6 F L Temperature Source Temporal Temporal Temporal Pulse Rate (60-100) 81 88 84 Pulse Location Monitor Monitor Monitor Respiratory Rate (12-18) 18 18 18 Respiratory rate source Observation Observation Observation Oxygen Delivery Method Room Air Blood Pressure (90/60-120/80) 145/79 H 149/75 H 144/69 H Blood Pressure Mean 101 99 94 Source Monitor Monitor Monitor Position Sitting Semi-Fowlers Semi-Fowlers Blood Pressure Location Left Arm Left Arm Left Arm History Since Last Visit- (Skip if this is Patient's initial visit) Have you changed medications since your No No No last visit? Any new allergies or adverse reactions No No No Had a fall/change in ADL's that may No No No increase risk of falls Signs or symptoms of abuse and/or No No No neglect since last visit Have you been in the hospital since your No No No last visit? Has dressing in place as prescribed Yes Yes Yes Has compression in place as prescribed N/A No No Has offloadiing in place as prescribed N/A No No Experienced any changes in pain level or No No No management Left Footwear Regular Shoe Right Footwear Regular Shoe Pain Scale: 0-10 Numeric Is Patient Pain Free? Yes Yes Yes WC - Nurse 1 - General Ulcer Measurement Start: 10/09/23 10:32 Freq: Status: Active Protocol: Activity Type Activity Date Activity User E-sign Co-sign Detail Recorded Client Recorded Date Recorded By Document 10/09/23 10:32 KW Desktop 10/09/23 10:43 KW Document 10/24/23 13:43 RB Desktop 10/24/23 13:46 RB Document 10/31/23 14:27 RB Desktop 10/31/23 14:30 RB 10/09/23 10/24/23 10/31/23 10:32 13:43 14:27 Wound Center Nurse 1 #12- R GROIN INFERIOR -Combined with other wound No No -Current Size (cm) - Length 0.6 0.5 0.4 -Current Size (cm) - Width 0.2 0.2 0.1 -Current Size (cm) - Depth 0.4 0.3 0.3 -Total Square Cm 0.12 0.10 0.04 -Date of Last Picture (Recall this 10/09/23 field) -Photo Taken Yes -Tunneling No No -Undermining/Tunneling No No -Circular Undermining No No -Exudate Amt Small Medium Medium -Exudate Type Serosanguineous Serosanguineous Serosanguineous -Wound Margin Distinct, Distinct, Thickened & Outline Outline Rolled Under Attached Attached -Granulation Amt Large (67-100%) Medium (34-66%) Medium (34-66%) -Granulation Quality [place] -Slough/Fibrin Yes Yes -Necrosis Amt Medium (34-66%) Medium (34-66%) -Necrotic Tissue Type Adherent Slough Adherent Slough -Structure Exposed N/A N/A -Texture (Blanche-wound Skin Appearance) Assessed Assessed, Assessed, Scarring Scarring -Moisture (Blanche-wound Skin Appearance) Assessed,Dry/ Assessed Assessed Scaly -Color (Blanche-wound Skin Appearance) Assessed, Assessed Assessed Erythema -Temperature (Blanche-wound Skin No Abnormality No Abnormality No Abnormality Appearance) (Pt Warm) (Pt Warm) (Pt Warm) -Tenderness on Palpation (Blanche-wound No No Skin Appearance) -Ulcer Cleansing Rinsed/ Wound Cleanser Wound Cleanser Irrigated with Saline -Foul Odor after Cleansing No No No -Anesthetic Used 4% Lidocaine 4% Lidocaine 4% Lidocaine Solution Solution Solution #11 R Groin--superior -Combined with other wound No No -Current Size (cm) - Length 0.8 0.4 0.5 -Current Size (cm) - Width 0.2 0.3 0.4 -Current Size (cm) - Depth 0.2 0.2 0.3 -Total Square Cm 0.16 0.12 0.20 -Date of Last Picture (Recall this 10/09/23 field) -Photo Taken Yes -Tunneling No No -Undermining/Tunneling No No -Circular Undermining No No -Exudate Amt Medium Medium Medium -Exudate Type Serosanguineous Serosanguineous Serosanguineous -Wound Margin Distinct, Distinct, Thickened & Outline Outline Rolled Under Attached Attached -Granulation Amt Large (67-100%) Medium (34-66%) Medium (34-66%) -Granulation Quality [place] -Slough/Fibrin Yes Yes -Necrosis Amt Small (1-33%) Medium (34-66%) Medium (34-66%) -Necrotic Tissue Type Adherent Slough Adherent Slough Adherent Slough -Structure Exposed N/A N/A -Texture (Blanche-wound Skin Appearance) Assessed Assessed, Assessed, Scarring Scarring -Moisture (Blanche-wound Skin Appearance) No Abnormality, Assessed Assessed Dry/Scaly -Color (Blanche-wound Skin Appearance) Assessed, Assessed Assessed Erythema -Temperature (Blanche-wound Skin No Abnormality No Abnormality No Abnormality Appearance) (Pt Warm) (Pt Warm) (Pt Warm) -Tenderness on Palpation (Blanche-wound No No Skin Appearance) -Ulcer Cleansing Rinsed/ Wound Cleanser Wound Cleanser Irrigated with Saline -Foul Odor after Cleansing No No -Anesthetic Used 4% Lidocaine 4% Lidocaine 4% Lidocaine Solution Solution Solution WC - Nurse 2 - General Ulcer CM Notes Start: 10/09/23 10:32 Freq: Status: Active Protocol: Activity Type Activity Date Activity User E-sign Co-sign Detail Recorded Client Recorded Date Recorded By Document 10/09/23 11:27 [employer]k Laptop 10/09/23 11:34 Document 10/24/23 13:58 [employer] Laptop 10/24/23 14:01 Document 10/31/23 14:46 [employer]k Laptop 10/31/23 14:51 10/09/23 10/24/23 10/31/23 11:27 13:58 14:46 Wound Center Nurse 2 #12- R GROIN INFERIOR -Time 11:30 14:00 -Correct Patient Yes Yes No -Correct Side, Site, Position Yes Yes No -Correct Procedure Yes Yes No -Procedure Performed Yes Yes No -Type of Procedure Debridement Debridement -Clinical Debridement Subcutaneous Subcutaneous -Tissue Removed Subcutaneous Subcutaneous -Post Debridement (cm) - Length 0.7 0.5 0 -Post Debridement (cm) - Width 0.2 0.3 0 -Post Debridement (cm) - Depth 0.3 0.3 0 -Total Square (Post) (cm) 0.14 0.15 0 -Area of Debridement (cm) - Length 0.7 0.5 0 -Area of Debridement (cm) - Width 0.2 0.3 0 -Total Square (Area) (cm) 0.14 0.15 0 -Tunneling No No -Undermining/Tunneling No No -Circular Undermining No No -Wound/Ulcer Outcome Not Healed Not Healed Healed- Epithelialized -Ulcer Cleansing Rinsed/ Rinsed/ Irrigated with Irrigated with Saline Saline -Foul Odor after Cleansing No No -Bioengineered Tissue No No -Bleeding Controlled with Pressure Pressure -Treatment Response Procedure Procedure Tolerated Well Tolerated Well -Offloading No No -Debridement - Subq, 1st 20sq cm No No #11 R Groin--superior -Time 11:31 14:01 14:49 -Correct Patient Yes Yes Yes -Correct Side, Site, Position Yes Yes Yes -Correct Procedure Yes Yes Yes -Procedure Performed Yes Yes Yes -Type of Procedure Debridement Debridement Debridement -Clinical Debridement Subcutaneous Subcutaneous Subcutaneous -Tissue Removed Subcutaneous Subcutaneous Subcutaneous -Post Debridement (cm) - Length 1.0 0.8 0.7 -Post Debridement (cm) - Width 0.5 0.4 0.4 -Post Debridement (cm) - Depth 0.1 0.4 0.3 -Total Square (Post) (cm) 0.50 0.32 0.28 -Area of Debridement (cm) - Length 1.0 0.8 0.7 -Area of Debridement (cm) - Width 0.5 0.4 0.4 -Total Square (Area) (cm) 0.50 0.32 0.28 -Tunneling No No No -Undermining/Tunneling No No No -Circular Undermining No No No -Wound/Ulcer Outcome Not Healed Not Healed Not Healed -Ulcer Cleansing Rinsed/ Rinsed/ Rinsed/ Irrigated with Irrigated with Irrigated with Saline Saline Saline -Foul Odor after Cleansing No No No -Bioengineered Tissue No No No -Bleeding Controlled with Pressure Pressure Pressure -Treatment Response Procedure Procedure Procedure Tolerated Well Tolerated Well Tolerated Well -Offloading No No No -Debridement - Subq, 1st 20sq cm Yes Yes Yes Pain Scale: 0-10 Numeric Is Patient Pain Free? Yes Yes No WC - Nurse 3 - General Ulcer D/C NN Start: 10/09/23 10:32 Freq: Status: Active Protocol: Activity Type Activity Date Activity User E-sign Co-sign Detail Recorded Client Recorded Date Recorded By Document 10/09/23 11:50 [facility] Desktop 10/09/23 11:53 BMF 10/09/23 11:50 Wound Care Center Nurse 3 #12- R GROIN INFERIOR -Primary Dressing Applied Promogran Mary Matter -Other Dressing PT DRESSED WOUND -Primary Dressing Covered/Secured with Dry Gauze, Secured with Tape -Promogran Mary Matter 1 #11 R Groin--superior -Primary Dressing Applied Promogran Mary Matter -Other Dressing PT DRESSES WOUND -Primary Dressing Covered/Secured with Dry Gauze, Secured with Tape -Promogran Mary Matter 0 Treatment Response Procedure Tolerated Well Pain Scale: 0-10 Numeric Is Patient Pain Free? 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 (2) Soft tissue radionecrosis: CODE(S): L59.8 - Other specified disorders of the skin and subcutaneous tissue related to radiation; Y84.2 - Radiological procedure and radiotherapy as the cause of abnormal reaction of the patient, or of later complication, without mention of misadventure at the time of the procedure (3) soft tissue radiation injury: (4) Radiation injury: CODE(S): T66.XXXA - Radiation sickness, unspecified, initial encounter QUALIFIERS: Encounter type: subsequent encounter Qualified Code(s): T66.XXXD - Radiation sickness, unspecified, subsequent encounter (5) History of melanoma: CODE(S): Z85.820 - Personal history of malignant melanoma of skin PLAN: Plan The patient is well-known to our facility, with a history of malignant melanoma in her right lower extremity, for which she received radiation therapy. Her right groin wound is due to soft tissue radionecrosis, and has been difficult to heal, requiring lengthy periods of treatment, including hyperbaric oxygen therapy. The patient has shown significant improvement in recent weeks, relative to her right groin wound. However, it is noted that she has required hospitalization from September 10 to September 14, 2023. This was required for a right stump infection. Cultures at that time were positive for Streptococcus agalactiae (B), Corynebacterium striatum, MRSE, Staphylococcus lugdunensis, and Staphylococcus aureus. While hospitalized she was treated with IV Vancomycin and Zosyn. She was discharged home on Doxycycline and Augmentin. Since her discharge, she experienced a recurrence of her stump infection, for which she has been treated by her primary care physician with doxycycline orally for 3 weeks, and the stump infection now appears to have resolved. She has completed her course of doxycycline. Relative to the patient's right groin ulceration, we are to continue the use of moistened Mary topically on a daily basis. It appears as though the patient has derived significant benefit from this protocol in recent weeks, and her ulceration continues to decrease in size. The patient is to return in 2 weeks for reassessment. Total time: 22 minutes
== END 2023-11-07 23:59 | disposition home or self-care (01) ==
LOC: WC 14:00
PROVIDERS: PCP Family Medicine; Visit Provider Surgery
DX: L59.8 Other specified disorders of the skin and subcutaneous tissue related to radiation (principal); L97.112 Non-pressure chronic ulcer of right thigh with fat layer exposed; Z89.611 Acquired absence of right leg above knee; Z92.3 Personal history of irradiation; Z87.891 Personal history of nicotine dependence; Z85.820 Personal history of malignant melanoma of skin; T66.XXXD Radiation sickness, unspecified, subsequent encounter; L03.115 Cellulitis of right lower limb; Z79.899 Other long term (current) drug therapy
CPT/HCPCS: 11042

== ENCOUNTER 2023-11-28 09:30 | Outpatient (RCR) | payer MEDICARE, OTHER, SELFPAY ==
[2023-11-08 00:17] VITALS: BP 144/69; PULSE 84; RESP 18; TEMP 35.9; BMI 29.8
[2023-11-14 14:22] VITALS: BP 151/82; PULSE 75; RESP 18; TEMP 36.3; BMI 29.8
[2023-11-28 09:36] VITALS: RESP 18; BMI 29.8
--- NOTE | 2023-11-28 13:17 | HP.PCM_ITS ---
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 The patient was diagnosed with melanoma of the right calf in the 1969's. The melanoma was metastatic to lymph nodes. The patient underwent excision of her melanoma with lymphadenectomy in the right groin. She also underwent lengthy radiation treatments at the [facility] in [place], [place]. Melanoma recurred, and the patient was subsequently treated with monoclonal antibodies in 1984. However, due to the presence of severe radiation injury, persisting open wounds in the right thigh, MRSA infection, and severe radiation injury to the right femoral artery, the patient subsequently required right above-knee amputation in 2002. 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 Treatment included local ulcer care and hyperbaric oxygen therapy. She underwent a total of nearly 90 treatments of hyperbaric oxygen therapy. It is known that she tolerated the therapies well, and derived significant benefit. 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 She has also undergone several more sessions of hyperbaric oxygen therapy. She also received a series of 10 EpiFix allografts in the course of previous treatment. Each of the patient's prior courses of treatment in our facility have been protracted, with difficulties encountered in achieving complete healing. Her most recent course of treatment ended with successful healing and discharge in February 2021. The patient presented at this time with a recurrence of her right groin ulceration, again thought to be secondary to soft tissue radiation injury. The ulceration recurred spontaneously approximately 2-3 weeks prior to her presentation. The patient indicates that her health history has not changed since she was last treated in our facility. 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 Bilateral cataracts Knee pain Hemorrhoids Cancer Home Medications ?Medication ?Instructions ?Recorded ?Last Taken ?Type famotidine 20 mg tablet 20 mg PO QHS 06/20/17 Unknown History pravastatin 20 mg tablet 20 mg PO QHS 90 days ##90 12/26/17 Unknown History acetaminophen 650 mg 1,300 mg PO Q8H PRN pain 09/11/23 Unknown History tablet,extended release (8 Hour Pain Reliever) calcium carbonate (Calcium 600) 1,200 mg PO DAILY 09/11/23 Unknown History cholecalciferol (vitamin D3) 50 2,000 unit PO DAILY 09/11/23 Unknown History mcg (2,000 unit) tablet (Vitamin D3) amoxicillin 875 mg-potassium 1 tab PO BID #16 tabs 09/14/23 Unknown Rx clavulanate 125 mg tablet doxycycline hyclate 100 mg capsule 100 mg PO BID #16 caps 09/14/23 Unknown Rx celecoxib 100 mg capsule 200 mg PO BID 11/14/23 Unknown History Allergy/AdvReac Type Severity Reaction Status Date / Time No Known Allergies Allergy Verified 09/11/23 11:27 Family History Other Heart disease Hypertension Surgical History History of appendectomy Hx of AKA (above knee amputation) Social History Smoking Status: Former smoker alcohol intake: current alcohol intake frequency: holidays/special occasions only Vital Signs Vital Signs Vital Signs: 11/28/23 09:36 Temperature Source Temporal Respiratory Rate 18 Blood Pressure Source Monitor Blood Pressure Position Sitting Blood Pressure Location Right Arm Oxygen Delivery Method Room Air Weight Weight: 196 lb 1.696 oz Body Mass Index (BMI) 29.8 Physical Exam Const alert, oriented x3, no apparent distress and well nourished General Appearance: cooperative, comfortable and well kempt Orientation / Consciousness: awake, oriented to person, oriented to place and oriented to time Exam Limitations: no limitations HEENT normocephalic and head/scalp atraumatic Nose: external nose normal Eyes PERRL and EOMs intact bilaterally General Eye: normal appearance of both eyes Neck full ROM Resp normal respiratory effort, normal air movement, no retractions and no use of accessory muscles Effort and Inspection: able to speak in complete sentences Extremity Extremity Narrative: Right AKA erythematous and warm to palpation. Line drawn to leidy the area of redness. Skin Wound Narrative: The patient's right groin ulceration persists. It continues to diminish in size, and has diminished significantly in size within the last 2 weeks. It is generally pink and healthy in appearance, with active granulation tissue. There is no sign of infection or cellulitis. Dimensions are documented elsewhere. There is a small amount of bioburden. More distally, her right above-knee amputation stump is intact. There is no sign of infection or cellulitis. There is no drainage or odor. No erythema is appreciated. Hair: normal Neuro oriented x3, CN's II-XII intact bilaterally, moves all extremities and no focal motor deficits Sensorium / Orientation: awake, alert, oriented to person, oriented to place and oriented to time Psych affect normal Appearance: grossly normal Debridement Note Debridement Note Wound debrided: Right groin wound Laterality: Right Type of Debridement: Excisional debridement Anesthesia Used: 5% Lidocaine Gel Depth: Down to and including healthy tissue and in the subcutaneous layer Percentage of wound debrided: 100 Instrument Used: 3mm curette Tissue Removed: Bioburden Severity: Fat Layer Exposed Amount of bleeding with debridement: Mild Bleeding Controlled with: Compression and gauze Patient tolerated procedure: Patient tolerated procedure well Post-Debridement Measurements and Additional Note: Post-Debridement Measurements/Treatment - Nurse 1 - General Ulcer Assessment Start: 11/14/23 14:22 Freq: Status: Active Protocol: MICHAEL Activity Type Activity Date Activity User E-sign Co-sign Detail Recorded Client Recorded Date Recorded By Document 11/14/23 14:22 Desktop 11/14/23 14:30 RB Document 11/28/23 09:36 KW wound center 11/28/23 09:41 KW 11/14/23 11/28/23 14:22 09:36 - Today's Visit Information Type of service Follow-up Visit Follow-up 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/CHAIR FRAME BUILDER (Physician/CHAIR FRAME BUILDER ) ) Arrival Mode Ambulatory Ambulatory Transfer Assistance None Patient Identification Verified (Name & Yes Yes ) Patient Requires Transmission-Based No Precautions Height and Weight Body Mass Index (BMI) 29.8 29.8 BMI Classification Overweight Overweight Vital Signs Temperature (97.8 F-99.1 F) 97.4 F L Temperature Source Temporal Temporal Pulse Rate (60-100) 75 Pulse Location Monitor Monitor Respiratory Rate (12-18) 18 18 Respiratory rate source Observation Observation Oxygen Delivery Method Room Air Blood Pressure (90/60-120/80) 151/82 H Blood Pressure Mean 105 Source Monitor Monitor Position Semi-Fowlers Sitting Blood Pressure Location Left Arm Right Arm History Since Last Visit- (Skip if this is Patient's initial visit) Have you changed medications since your No No last visit? Any new allergies or adverse reactions No No Had a fall/change in ADL's that may No No increase risk of falls Signs or symptoms of abuse and/or No No neglect since last visit Have you been in the hospital since your No No last visit? Has dressing in place as prescribed Yes Yes Has compression in place as prescribed No N/A Has offloadiing in place as prescribed No N/A Experienced any changes in pain level or No No management Left Footwear Regular Shoe Right Footwear Regular Shoe Pain Scale: 0-10 Numeric Is Patient Pain Free? Yes Yes WC - Nurse 1 - General Ulcer Measurement Start: 11/14/23 14:22 Freq: Status: Active Protocol: Activity Type Activity Date Activity User E-sign Co-sign Detail Recorded Client Recorded Date Recorded By Document 11/14/23 14:22 RB Desktop 11/14/23 14:30 RB Document 11/28/23 09:36 wound center 11/28/23 09:41 KW 11/14/23 11/28/23 14:22 09:36 Wound Center Nurse 1 #11 R Groin--superior -Combined with other wound No -Current Size (cm) - Length 0.5 0.3 -Current Size (cm) - Width 0.3 0.2 -Current Size (cm) - Depth 0.2 0.2 -Total Square Cm 0.15 0.06 -Tunneling No -Undermining/Tunneling No -Circular Undermining No -Exudate Amt Medium None Present -Exudate Type Serosanguineous -Wound Margin Thickened Distinct, Outline Attached -Granulation Amt Medium (34-66%) Large (67-100%) -Granulation Quality [place] -Slough/Fibrin Yes -Necrosis Amt Medium (34-66%) -Necrotic Tissue Type Adherent Slough -Structure Exposed N/A -Texture (Blanche-wound Skin Appearance) Assessed, Assessed, Scarring Scarring -Moisture (Blanche-wound Skin Appearance) Assessed Assessed -Color (Blanche-wound Skin Appearance) Assessed Assessed -Temperature (Blanche-wound Skin No Abnormality No Abnormality Appearance) (Pt Warm) (Pt Warm) -Tenderness on Palpation (Blanche-wound No No Skin Appearance) -Ulcer Cleansing Wound Cleanser Rinsed/ Irrigated with Saline -Foul Odor after Cleansing No -Anesthetic Used 4% Lidocaine 4% Lidocaine Solution Solution - Nurse 2 - General Ulcer CM Notes Start: 11/14/23 14:22 Freq: Status: Active Protocol: Activity Type Activity Date Activity User E-sign Co-sign Detail Recorded Client Recorded Date Recorded By Document 11/14/23 14:49 JF Laptop 11/14/23 14:50 Document 11/28/23 10:01 [place] [id number] 11/28/23 10:04 DS 11/14/23 11/28/23 14:49 10:01 Wound Center Nurse 2 #11 R Groin--superior -Time 14:49 10:01 -Correct Patient Yes Yes -Correct Side, Site, Position Yes Yes -Correct Procedure Yes Yes -Procedure Performed Yes Yes -Type of Procedure Debridement Debridement -Clinical Debridement Subcutaneous Subcutaneous -Tissue Removed Subcutaneous Subcutaneous -Post Debridement (cm) - Length 0.7 0.5 -Post Debridement (cm) - Width 0.4 0.4 -Post Debridement (cm) - Depth 0.3 0.3 -Total Square (Post) (cm) 0.28 0.20 -Area of Debridement (cm) - Length 0.7 0.5 -Area of Debridement (cm) - Width 0.4 0.4 -Total Square (Area) (cm) 0.28 0.20 -Tunneling No No -Undermining/Tunneling No No -Circular Undermining No No -Wound/Ulcer Outcome Not Healed Not Healed -Ulcer Cleansing Rinsed/ Rinsed/ Irrigated with Irrigated with Saline Saline -Foul Odor after Cleansing No -Bioengineered Tissue No -Bleeding Controlled with Pressure Pressure -Treatment Response Procedure Procedure Tolerated Well Tolerated Well -Offloading No -Debridement - Subq, 1st 20sq cm Yes Yes Pain Scale: 0-10 Numeric Is Patient Pain Free? Yes Yes KISHA - Nurse 3 - General Ulcer D/C NN Start: 11/14/23 14:22 Freq: Status: Active Protocol: Activity Type Activity Date Activity User E-sign Co-sign Detail Recorded Client Recorded Date Recorded By Document 11/14/23 14:52 KW Desktop 11/14/23 14:52 KW Document 11/28/23 11:26 wound center 11/28/23 11:26 11/14/23 11/28/23 14:52 11:26 Wound Care Center Nurse 3 #11 R Groin--superior -Ulcer Cleansing Rinsed/ Irrigated with Saline -Other Dressing PERSONAL KEVIN KEVIN -Primary Dressing Covered/Secured with Dry Gauze, Dry Gauze, Secured with Secured with Tape Tape Treatment Response Procedure Tolerated Well Pain Scale: 0-10 Numeric Is Patient Pain Free? 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 (2) Soft tissue radionecrosis: CODE(S): L59.8 - Other specified disorders of the skin and subcutaneous tissue related to radiation; Y84.2 - Radiological procedure and radiotherapy as the cause of abnormal reaction of the patient, or of later complication, without mention of misadventure at the time of the procedure (3) soft tissue radiation injury: (4) Radiation injury: CODE(S): T66.XXXA - Radiation sickness, unspecified, initial encounter QUALIFIERS: Encounter type: subsequent encounter Qualified Code(s): T66.XXXD - Radiation sickness, unspecified, subsequent encounter (5) History of melanoma: CODE(S): Z85.820 - Personal history of malignant melanoma of skin PLAN: Plan The patient is well-known to our facility, with a history of malignant melanoma in her right lower extremity, for which she received radiation therapy. Her right groin wound is due to soft tissue radionecrosis, and has been difficult to heal, requiring lengthy periods of treatment, including hyperbaric oxygen therapy. The patient has shown significant improvement in recent weeks, relative to her right groin wound. She required hospitalization from September 10 to September 14, 2023. This was required for a right stump infection. Cultures at that time were positive for Streptococcus agalactiae (B), Corynebacterium striatum, MRSE, Staphylococcus lugdunensis, and Staphylococcus aureus. While hospitalized she was treated with IV Vancomycin and Zosyn. She was discharged home on Doxycycline and Augmentin. Since her discharge, she experienced a recurrence of her stump infection, for which she was treated by her primary care physician with doxycycline orally for 3 weeks. The patient's stump infection has completely resolved, and she is now using her prosthetic limb. The patient's right groin ulceration continues to show significant improvement. It has continued to decrease in size over time. We are to continue the use of moistened Kevin topically on a daily basis. It appears as though the patient has derived significant benefit from this protocol in recent weeks. The patient is to return in 2 weeks for reassessment. Total time: 24 minutes
== END 2023-12-08 23:59 | disposition home or self-care (01) ==
LOC: WC 09:30
PROVIDERS: PCP Family Medicine; Visit Provider Surgery
DX: L59.8 Other specified disorders of the skin and subcutaneous tissue related to radiation (principal); L97.112 Non-pressure chronic ulcer of right thigh with fat layer exposed; Z89.611 Acquired absence of right leg above knee; Z92.3 Personal history of irradiation; Z87.891 Personal history of nicotine dependence; T66.XXXD Radiation sickness, unspecified, subsequent encounter; Z79.899 Other long term (current) drug therapy
CPT/HCPCS: 11042

== ENCOUNTER 2023-12-26 13:30 | Outpatient (RCR) | payer MEDICARE, OTHER, SELFPAY ==
[2023-12-09 01:44] VITALS: BP 144/69; PULSE 84; RESP 18; TEMP 35.9; BMI 29.8
[2023-12-12 14:46] VITALS: BP 132/76; PULSE 86; RESP 18; TEMP 35.7; BMI 29.8
--- NOTE | 2023-12-12 16:32 | HP.PCM_ITS ---
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 The patient was diagnosed with melanoma of the right calf in the 1969's. The melanoma was metastatic to lymph nodes. The patient underwent excision of her melanoma with lymphadenectomy in the right groin. She also underwent lengthy radiation treatments at the [facility] in [place], [place]. Melanoma recurred, and the patient was subsequently treated with monoclonal antibodies in 1984. However, due to the presence of severe radiation injury, persisting open wounds in the right thigh, MRSA infection, and severe radiation injury to the right femoral artery, the patient subsequently required right above-knee amputation in 2002. 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 Treatment included local ulcer care and hyperbaric oxygen therapy. She underwent a total of nearly 90 treatments of hyperbaric oxygen therapy. It is known that she tolerated the therapies well, and derived significant benefit. 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 She has also undergone several more sessions of hyperbaric oxygen therapy. She also received a series of 10 EpiFix allografts in the course of previous treatment. Each of the patient's prior courses of treatment in our facility have been protracted, with difficulties encountered in achieving complete healing. Her most recent course of treatment ended with successful healing and discharge in February 2021. The patient presented at this time with a recurrence of her right groin ulceration, again thought to be secondary to soft tissue radiation injury. The ulceration recurred spontaneously approximately 2-3 weeks prior to her presentation. The patient indicates that her health history has not changed since she was last treated in our facility. 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 Bilateral cataracts Knee pain Hemorrhoids Cancer Home Medications ?Medication ?Instructions ?Recorded ?Last Taken ?Type famotidine 20 mg tablet 20 mg PO QHS 06/20/17 Unknown History pravastatin 20 mg tablet 20 mg PO QHS 90 days ##90 12/26/17 Unknown History acetaminophen 650 mg 1,300 mg PO Q8H PRN pain 09/11/23 Unknown History tablet,extended release (8 Hour Pain Reliever) calcium carbonate (Calcium 600) 1,200 mg PO DAILY 09/11/23 Unknown History cholecalciferol (vitamin D3) 50 2,000 unit PO DAILY 09/11/23 Unknown History mcg (2,000 unit) tablet (Vitamin D3) amoxicillin 875 mg-potassium 1 tab PO BID #16 tabs 09/14/23 Unknown Rx clavulanate 125 mg tablet doxycycline hyclate 100 mg capsule 100 mg PO BID #16 caps 09/14/23 Unknown Rx celecoxib 100 mg capsule 200 mg PO BID 11/14/23 Unknown History Allergy/AdvReac Type Severity Reaction Status Date / Time No Known Allergies Allergy Verified 09/11/23 11:27 Family History Other Heart disease Hypertension Surgical History History of appendectomy Hx of AKA (above knee amputation) Social History Smoking Status: Former smoker alcohol intake: current alcohol intake frequency: holidays/special occasions only Vital Signs Vital Signs Vital Signs: 12/12/23 14:46 Temperature 96.2 F L Temperature Source Temporal Pulse Rate 86 Respiratory Rate 18 Blood Pressure 132/76 H Blood Pressure Mean 94 Blood Pressure Source Monitor Blood Pressure Position Semi-Fowlers Blood Pressure Location Left Arm Weight Weight: 196 lb 1.696 oz Body Mass Index (BMI) 29.8 Physical Exam Const alert, oriented x3, no apparent distress and well nourished General Appearance: cooperative, comfortable and well kempt Orientation / Consciousness: awake, oriented to person, oriented to place and oriented to time Exam Limitations: no limitations HEENT normocephalic and head/scalp atraumatic Nose: external nose normal Eyes PERRL and EOMs intact bilaterally General Eye: normal appearance of both eyes Neck full ROM Resp normal respiratory effort, normal air movement, no retractions and no use of accessory muscles Effort and Inspection: able to speak in complete sentences Extremity Extremity Narrative: Right AKA erythematous and warm to palpation. Line drawn to leidy the area of redness. Skin Wound Narrative: The patient's right groin ulceration persists. It continues to diminish in size, and has diminished significantly in size within the last 2 weeks. It is much smaller, and is generally pink and healthy in appearance, with active granulation tissue. There is no sign of infection or cellulitis. Dimensions are documented elsewhere. There is a small amount of bioburden. More distally, her right above-knee amputation stump is intact. There is no sign of infection or cellulitis. There is no drainage or odor. No erythema is appreciated. Hair: normal Neuro oriented x3, CN's II-XII intact bilaterally, moves all extremities and no focal motor deficits Sensorium / Orientation: awake, alert, oriented to person, oriented to place and oriented to time Psych affect normal Appearance: grossly normal Debridement Note Debridement Note Wound debrided: Right groin wound Laterality: Right Type of Debridement: Excisional debridement Anesthesia Used: 5% Lidocaine Gel Depth: Down to and including healthy tissue and in the subcutaneous layer Percentage of wound debrided: 100 Instrument Used: 3mm curette Tissue Removed: Bioburden Severity: Fat Layer Exposed Amount of bleeding with debridement: Mild Bleeding Controlled with: Compression and gauze Patient tolerated procedure: Patient tolerated procedure well Post-Debridement Measurements and Additional Note: Post-Debridement Measurements/Treatment - Nurse 1 - General Ulcer Assessment Start: 12/12/23 14:45 Freq: Status: Active Protocol: [email or web address] Activity Type Activity Date Activity User E-sign Co-sign Detail Recorded Client Recorded Date Recorded By Document 12/12/23 14:46 wound center 12/12/23 14:48 12/12/23 14:46 - Today's Visit Information Type of service Follow-up 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/PAVER ) Arrival Mode Ambulatory Transfer Assistance None Patient Identification Verified (Name & Yes ) Patient Requires Transmission-Based No Precautions Height and Weight Body Mass Index (BMI) 29.8 BMI Classification Overweight Vital Signs Temperature (97.8 F-99.1 F) 96.2 F L Temperature Source Temporal Pulse Rate (60-100) 86 Pulse Location Monitor Respiratory Rate (12-18) 18 Respiratory rate source Observation Blood Pressure (90/60-120/80) 132/76 H Blood Pressure Mean 94 Source Monitor Position Semi-Fowlers Blood Pressure Location Left Arm History Since Last Visit- (Skip if this is Patient's initial visit) Have you changed medications since your No last visit? Any new allergies or adverse reactions No Had a fall/change in ADL's that may No increase risk of falls Signs or symptoms of abuse and/or No neglect since last visit Have you been in the hospital since your No last visit? Has dressing in place as prescribed Yes Has compression in place as prescribed No Has offloadiing in place as prescribed No Experienced any changes in pain level or No management Pain Scale: 0-10 Numeric Is Patient Pain Free? Yes - Nurse 1 - General Ulcer Measurement Start: 12/12/23 14:45 Freq: Status: Active Protocol: Activity Type Activity Date Activity User E-sign Co-sign Detail Recorded Client Recorded Date Recorded By Document 12/12/23 14:46 RB wound center 12/12/23 14:48 RB 12/12/23 14:46 Wound Center Nurse 1 #11 R Groin--superior -Combined with other wound No -Current Size (cm) - Length 0.1 -Current Size (cm) - Width 0.1 -Current Size (cm) - Depth 0.1 -Total Square Cm 0.01 -Photo Taken Yes -Tunneling No -Undermining/Tunneling No -Circular Undermining No -Exudate Amt Medium -Exudate Type Serosanguineous -Wound Margin Distinct, Outline Attached -Granulation Amt Medium (34-66%) -Granulation Quality Calvert -Slough/Fibrin Yes -Necrosis Amt Medium (34-66%) -Necrotic Tissue Type Adherent Slough -Structure Exposed N/A -Texture (Blanche-wound Skin Appearance) Assessed, Scarring -Moisture (Blanche-wound Skin Appearance) Assessed -Color (Blanche-wound Skin Appearance) Assessed -Temperature (Blanche-wound Skin No Abnormality Appearance) (Pt Warm) -Tenderness on Palpation (Blanche-wound No Skin Appearance) -Ulcer Cleansing Wound Cleanser -Foul Odor after Cleansing No -Anesthetic Used 4% Lidocaine Solution - Nurse 2 - General Ulcer CM Notes Start: 12/12/23 14:45 Freq: Status: Active Protocol: Activity Type Activity Date Activity User E-sign Co-sign Detail Recorded Client Recorded Date Recorded By Document 12/12/23 14:59 DS [id number] 12/12/23 15:01 DS 12/12/23 14:59 Wound Center Nurse 2 -Time 14:58 -Correct Patient Yes -Correct Side, Site, Position Yes -Correct Procedure Yes -Procedure Performed Yes -Type of Procedure Debridement -Clinical Debridement Subcutaneous -Tissue Removed Subcutaneous -Post Debridement (cm) - Length 0.3 -Post Debridement (cm) - Width 0.2 -Post Debridement (cm) - Depth 0.3 -Total Square (Post) (cm) 0.06 -Area of Debridement (cm) - Length 0.3 -Area of Debridement (cm) - Width 0.2 -Total Square (Area) (cm) 0.06 -Tunneling No -Undermining/Tunneling No -Circular Undermining No -Wound/Ulcer Outcome Not Healed -Ulcer Cleansing Rinsed/ Irrigated with Saline -Bleeding Controlled with Pressure -Treatment Response Procedure Tolerated Well -Debridement - Subq, 1st 20sq cm Yes Pain Scale: 0-10 Numeric Is Patient Pain Free? Yes - Nurse 3 - General Ulcer D/C NN Start: 12/12/23 14:45 Freq: Status: Active Protocol: Activity Type Activity Date Activity User E-sign Co-sign Detail Recorded Client Recorded Date Recorded By Document 12/12/23 15:11 wound center 12/12/23 15:11 12/12/23 15:11 Wound Care Center Nurse 3 #11 R Groin--superior -Primary Dressing Applied Promogran Mary Matter -Primary Dressing Covered/Secured with Dry Gauze, Secured with Tape -Promogran Mary Matter 1 Pain Scale: 0-10 Numeric Is Patient Pain Free? 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 (2) Soft tissue radionecrosis: CODE(S): L59.8 - Other specified disorders of the skin and subcutaneous tissue related to radiation; Y84.2 - Radiological procedure and radiotherapy as the cause of abnormal reaction of the patient, or of later complication, without mention of misadventure at the time of the procedure (3) soft tissue radiation injury: (4) Radiation injury: CODE(S): T66.XXXA - Radiation sickness, unspecified, initial encounter QUALIFIERS: Encounter type: subsequent encounter Qualified Code(s): T66.XXXD - Radiation sickness, unspecified, subsequent encounter (5) History of melanoma: CODE(S): Z85.820 - Personal history of malignant melanoma of skin PLAN: Plan The patient is well-known to our facility, with a history of malignant melanoma in her right lower extremity, for which she received radiation therapy. Her right groin wound is due to soft tissue radionecrosis, and has been difficult to heal, requiring lengthy periods of treatment, including hyperbaric oxygen therapy. The patient has shown significant improvement in recent weeks, relative to her right groin wound. She required hospitalization from September 10 to September 14, 2023. This was required for a right stump infection. Cultures at that time were positive for Streptococcus agalactiae (B), Corynebacterium striatum, MRSE, Staphylococcus lugdunensis, and Staphylococcus aureus. While hospitalized she was treated with IV Vancomycin and Zosyn. She was discharged home on Doxycycline and Augmentin. Since her discharge, she experienced a recurrence of her stump infection, for which she was treated by her primary care physician with doxycycline orally for 3 weeks. The patient's stump infection has completely resolved, and she is now using her prosthetic limb. The patient's right groin ulceration continues to show significant improvement. It has continued to decrease in size over time. We are to continue the use of moistened Mary topically on a daily basis. It appears as though the patient has derived significant benefit from this protocol in recent weeks. The patient is to return in 2 weeks for reassessment. Total time: 22 minutes
[2023-12-26 13:30] VITALS: BP 141/79; PULSE 83; RESP 16; BMI 29.8
--- NOTE | 2023-12-26 16:35 | HP.PCM_ITS ---
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 The patient was diagnosed with melanoma of the right calf in the 1969's. The melanoma was metastatic to lymph nodes. The patient underwent excision of her melanoma with lymphadenectomy in the right groin. She also underwent lengthy radiation treatments at the [facility] in [place], [place]. Melanoma recurred, and the patient was subsequently treated with monoclonal antibodies in 1984. However, due to the presence of severe radiation injury, persisting open wounds in the right thigh, MRSA infection, and severe radiation injury to the right femoral artery, the patient subsequently required right above-knee amputation in 2002. 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 Treatment included local ulcer care and hyperbaric oxygen therapy. She underwent a total of nearly 90 treatments of hyperbaric oxygen therapy. It is known that she tolerated the therapies well, and derived significant benefit. 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 She has also undergone several more sessions of hyperbaric oxygen therapy. She also received a series of 10 EpiFix allografts in the course of previous treatment. Each of the patient's prior courses of treatment in our facility have been protracted, with difficulties encountered in achieving complete healing. Her most recent course of treatment ended with successful healing and discharge in February 2021. The patient presented at this time with a recurrence of her right groin ulceration, again thought to be secondary to soft tissue radiation injury. The ulceration recurred spontaneously approximately 2-3 weeks prior to her presentation. The patient indicates that her health history has not changed since she was last treated in our facility. 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 Bilateral cataracts Knee pain Hemorrhoids Cancer Home Medications ?Medication ?Instructions ?Recorded ?Last Taken ?Type famotidine 20 mg tablet 20 mg PO QHS 06/20/17 Unknown History pravastatin 20 mg tablet 20 mg PO QHS 90 days ##90 12/26/17 Unknown History acetaminophen 650 mg 1,300 mg PO Q8H PRN pain 09/11/23 Unknown History tablet,extended release (8 Hour Pain Reliever) calcium carbonate (Calcium 600) 1,200 mg PO DAILY 09/11/23 Unknown History cholecalciferol (vitamin D3) 50 2,000 unit PO DAILY 09/11/23 Unknown History mcg (2,000 unit) tablet (Vitamin D3) amoxicillin 875 mg-potassium 1 tab PO BID #16 tabs 09/14/23 Unknown Rx clavulanate 125 mg tablet doxycycline hyclate 100 mg capsule 100 mg PO BID #16 caps 09/14/23 Unknown Rx celecoxib 100 mg capsule 200 mg PO BID 11/14/23 Unknown History Allergy/AdvReac Type Severity Reaction Status Date / Time No Known Allergies Allergy Verified 09/11/23 11:27 Family History Other Heart disease Hypertension Surgical History History of appendectomy Hx of AKA (above knee amputation) Social History Smoking Status: Former smoker alcohol intake: current alcohol intake frequency: holidays/special occasions only Vital Signs Vital Signs Vital Signs: 12/26/23 13:30 Pulse Rate 83 Respiratory Rate 16 Blood Pressure 141/79 H Blood Pressure Mean 99 Blood Pressure Source Monitor Blood Pressure Position Semi-Fowlers Blood Pressure Location Left Arm Weight Weight: 196 lb 1.696 oz Body Mass Index (BMI) 29.8 Physical Exam Const alert, oriented x3, no apparent distress and well nourished General Appearance: cooperative, comfortable and well kempt Orientation / Consciousness: awake, oriented to person, oriented to place and oriented to time Exam Limitations: no limitations HEENT normocephalic and head/scalp atraumatic Nose: external nose normal Eyes PERRL and EOMs intact bilaterally General Eye: normal appearance of both eyes Neck full ROM Resp normal respiratory effort, normal air movement, no retractions and no use of accessory muscles Effort and Inspection: able to speak in complete sentences Extremity Extremity Narrative: Right AKA erythematous and warm to palpation. Line drawn to leidy the area of redness. Skin Wound Narrative: The patient's right groin ulceration persists. It continues to diminish in size, and has diminished significantly in size within the last 2 weeks. It is much smaller, and is generally pink and healthy in appearance, with active granulation tissue. The ulceration is now only approximately 3 mm in width, with a depth of approximately 3 mm. Dimensions are documented elsewhere. There is no sign of infection or cellulitis. There is a small amount of bioburden. More distally, her right above-knee amputation stump is intact. There is no sign of infection or cellulitis. There is no drainage or odor. No erythema is appreciated. Hair: normal Neuro oriented x3, CN's II-XII intact bilaterally, moves all extremities and no focal motor deficits Sensorium / Orientation: awake, alert, oriented to person, oriented to place and oriented to time Psych affect normal Appearance: grossly normal Debridement Note Debridement Note Wound debrided: Right groin wound Laterality: Right Type of Debridement: Excisional debridement Anesthesia Used: 5% Lidocaine Gel Depth: Down to and including healthy tissue and in the subcutaneous layer Percentage of wound debrided: 100 Instrument Used: 3mm curette Tissue Removed: Bioburden Severity: Fat Layer Exposed Amount of bleeding with debridement: Mild Bleeding Controlled with: Compression and gauze Patient tolerated procedure: Patient tolerated procedure well Post-Debridement Measurements and Additional Note: Post-Debridement Measurements/Treatment - Nurse 1 - General Ulcer Assessment Start: 12/12/23 14:45 Freq: Status: Active Protocol: .LOWEXT Activity Type Activity Date Activity User E-sign Co-sign Detail Recorded Client Recorded Date Recorded By Document 12/12/23 14:46 wound center 12/12/23 14:48 Document 12/26/23 13:30 [id number] 12/26/23 13:32 12/12/23 12/26/23 14:46 13:30 - Today's Visit Information Type of service Follow-up Visit Follow-up 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/CAT SCANNER OPERATOR (Physician/CAT SCANNER OPERATOR ) ) Arrival Mode Ambulatory Ambulatory Transfer Assistance None Patient Identification Verified (Name & Yes Yes ) Patient Requires Transmission-Based No No Precautions Height and Weight Body Mass Index (BMI) 29.8 29.8 BMI Classification Overweight Overweight Vital Signs Temperature (97.8 F-99.1 F) 96.2 F L Temperature Source Temporal Pulse Rate (60-100) 86 83 Pulse Location Monitor Monitor Respiratory Rate (12-18) 18 16 Respiratory rate source Observation Observation Blood Pressure (90/60-120/80) 132/76 H 141/79 H Blood Pressure Mean 94 99 Source Monitor Monitor Position Semi-Fowlers Semi-Fowlers Blood Pressure Location Left Arm Left Arm History Since Last Visit- (Skip if this is Patient's initial visit) Have you changed medications since your No No last visit? Any new allergies or adverse reactions No No Had a fall/change in ADL's that may No No increase risk of falls Signs or symptoms of abuse and/or No No neglect since last visit Have you been in the hospital since your No No last visit? Has dressing in place as prescribed Yes Yes Has compression in place as prescribed No N/A Has offloadiing in place as prescribed No No Experienced any changes in pain level or No No management Pain Scale: 0-10 Numeric Is Patient Pain Free? Yes Yes WC - Nurse 1 - General Ulcer Measurement Start: 12/12/23 14:45 Freq: Status: Active Protocol: Activity Type Activity Date Activity User E-sign Co-sign Detail Recorded Client Recorded Date Recorded By Document 12/12/23 14:46 wound center 12/12/23 14:48 RB Document 12/26/23 13:30 [id number] 12/26/23 13:32 12/12/23 12/26/23 14:46 13:30 Wound Center Nurse 1 #11 R Groin--superior -Combined with other wound No No -Current Size (cm) - Length 0.1 0.2 -Current Size (cm) - Width 0.1 0.2 -Current Size (cm) - Depth 0.1 0.3 -Total Square Cm 0.01 0.04 -Photo Taken Yes No -Epithelialization Medium 34-66% -Tunneling No No -Undermining/Tunneling No No -Circular Undermining No No -Exudate Amt Medium Small -Exudate Type Serosanguineous Serosanguineous -Wound Margin Distinct, Flat & Intact Outline Attached -Granulation Amt Medium (34-66%) Medium (34-66%) -Granulation Quality [place] Red -Slough/Fibrin Yes Yes -Necrosis Amt Medium (34-66%) Small (1-33%) -Necrotic Tissue Type Adherent Slough Adherent Slough -Structure Exposed N/A N/A -Texture (Blanche-wound Skin Appearance) Assessed, Assessed, Scarring Scarring -Moisture (Blanche-wound Skin Appearance) Assessed Assessed,Dry/ Scaly -Color (Blanche-wound Skin Appearance) Assessed Assessed -Temperature (Blanche-wound Skin No Abnormality No Abnormality Appearance) (Pt Warm) (Pt Warm) -Tenderness on Palpation (Blanche-wound No No Skin Appearance) -Ulcer Cleansing Wound Cleanser Rinsed/ Irrigated with Saline -Foul Odor after Cleansing No No -Anesthetic Used 4% Lidocaine 4% Lidocaine Solution Solution Lower Limb Edema Present NA WC - Nurse 2 - General Ulcer CM Notes Start: 12/12/23 14:45 Freq: Status: Active Protocol: Activity Type Activity Date Activity User E-sign Co-sign Detail Recorded Client Recorded Date Recorded By Document 12/12/23 14:59 DS [id number] 12/12/23 15:01 DS Document 12/26/23 13:47 DS 1 12/26/23 13:48 DS 12/12/23 12/26/23 14:59 13:47 Wound Center Nurse 2 #11 R Groin--superior -Time 14:58 13:47 -Correct Patient Yes Yes -Correct Side, Site, Position Yes Yes -Correct Procedure Yes Yes -Procedure Performed Yes Yes -Type of Procedure Debridement Debridement -Clinical Debridement Subcutaneous Subcutaneous -Tissue Removed Subcutaneous Subcutaneous -Post Debridement (cm) - Length 0.3 0.3 -Post Debridement (cm) - Width 0.2 0.3 -Post Debridement (cm) - Depth 0.3 0.3 -Total Square (Post) (cm) 0.06 0.09 -Area of Debridement (cm) - Length 0.3 0.3 -Area of Debridement (cm) - Width 0.2 0.3 -Total Square (Area) (cm) 0.06 0.09 -Tunneling No No -Undermining/Tunneling No No -Circular Undermining No No -Wound/Ulcer Outcome Not Healed Not Healed -Ulcer Cleansing Rinsed/ Rinsed/ Irrigated with Irrigated with Saline Saline -Bleeding Controlled with Pressure Pressure -Treatment Response Procedure Procedure Tolerated Well Tolerated Well -Debridement - Subq, 1st 20sq cm Yes Yes Pain Scale: 0-10 Numeric Is Patient Pain Free? Yes Yes KISHA - Nurse 3 - General Ulcer D/C NN Start: 12/12/23 14:45 Freq: Status: Active Protocol: Activity Type Activity Date Activity User E-sign Co-sign Detail Recorded Client Recorded Date Recorded By Document 12/12/23 15:11 KW wound center 12/12/23 15:11 KW Document 12/26/23 13:58 RB [id number] 12/26/23 13:58 RB 12/12/23 12/26/23 15:11 13:58 Wound Care Center Nurse 3 #11 R Groin--superior -Ulcer Cleansing Rinsed/ Irrigated with Saline -Primary Dressing Applied Promogran Xu Matter -Other Dressing xu -Primary Dressing Covered/Secured with Dry Gauze, Dry Gauze, Secured with Secured with Tape Tape -Promogran Xu Matter 1 -Wound Comment(s) pt applied own dressing at recent visit Treatment Response Procedure Tolerated Well Pain Scale: 0-10 Numeric Is Patient Pain Free? 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 (2) Soft tissue radionecrosis: CODE(S): L59.8 - Other specified disorders of the skin and subcutaneous tissue related to radiation; Y84.2 - Radiological procedure and radiotherapy as the cause of abnormal reaction of the patient, or of later complication, without mention of misadventure at the time of the procedure (3) soft tissue radiation injury: (4) Radiation injury: CODE(S): T66.XXXA - Radiation sickness, unspecified, initial encounter QUALIFIERS: Encounter type: subsequent encounter Qualified Code(s): T66.XXXD - Radiation sickness, unspecified, subsequent encounter (5) History of melanoma: CODE(S): Z85.820 - Personal history of malignant melanoma of skin PLAN: Plan The patient is well-known to our facility, with a history of malignant melanoma in her right lower extremity, for which she received radiation therapy. Her right groin wound is due to soft tissue radionecrosis, and has been difficult to heal, requiring lengthy periods of treatment, including hyperbaric oxygen therapy. The patient has shown significant improvement in recent weeks, relative to her right groin wound. She required hospitalization from September 10 to September 14, 2023. This was required for a right stump infection. Cultures at that time were positive for Streptococcus agalactiae (B), Corynebacterium striatum, MRSE, Staphylococcus lugdunensis, and Staphylococcus aureus. While hospitalized she was treated with IV Vancomycin and Zosyn. She was discharged home on Doxycycline and Augmentin. Since her discharge, she has experienced recurrences of her stump infection, for which she has required antibiotics. Most recently, since her last visit 2 weeks ago, she again experienced a right stump infection, and was hospitalized at [facility] in [place], [place], where she received 3 days of intravenous vancomycin and Zosyn, followed by a 10-day course of oral doxycycline and Augmentin. The patient has completed her course of oral antibiotics, and the cellulitis related to her distal right AKA stump has resolved. Her episode of cellulitis appeared to be unrelated to her chronic right groin ulceration. The patient feels as though perspiration and friction from her right lower extremity prosthesis may have accounted for her most recent episode of cellulitis. At this time, the patient's most recent stump infection appears to have completely resolved. The patient's right groin ulceration continues to show significant improvement. It has continued to decrease in size over time. We are to continue the use of moistened Xu topically on a daily basis. It appears as though the patient has derived significant benefit from this protocol in recent weeks. The patient is to return in 2 weeks for reassessment. Total time: 24 minutes
== END 2024-01-07 23:59 | disposition home or self-care (01) ==
LOC: WC 13:30
PROVIDERS: PCP Family Medicine; Visit Provider Surgery
DX: L59.8 Other specified disorders of the skin and subcutaneous tissue related to radiation (principal); L97.112 Non-pressure chronic ulcer of right thigh with fat layer exposed; Z89.611 Acquired absence of right leg above knee; Z87.891 Personal history of nicotine dependence; T66.XXXD Radiation sickness, unspecified, subsequent encounter; Z92.3 Personal history of irradiation; Z85.820 Personal history of malignant melanoma of skin
CPT/HCPCS: 11042

== ENCOUNTER 2024-01-09 13:41 | Outpatient (RCR) | payer MEDICARE, OTHER, SELFPAY ==
[2024-01-08 00:19] VITALS: BP 144/69; PULSE 84; RESP 18; TEMP 35.9; BMI 29.8
[2024-01-09 13:42] VITALS: BP 141/78; PULSE 102; RESP 16; TEMP 37.1; BMI 29.8
--- NOTE | 2024-01-09 16:32 | PCM.WC.HP ---
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 The patient was diagnosed with melanoma of the right calf in the 1969's. The melanoma was metastatic to lymph nodes. The patient underwent excision of her melanoma with lymphadenectomy in the right groin. She also underwent lengthy radiation treatments at the [facility] in [place], [place]. Melanoma recurred, and the patient was subsequently treated with monoclonal antibodies in 1984. However, due to the presence of severe radiation injury, persisting open wounds in the right thigh, MRSA infection, and severe radiation injury to the right femoral artery, the patient subsequently required right above-knee amputation in 2002. 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 Treatment included local ulcer care and hyperbaric oxygen therapy. She underwent a total of nearly 90 treatments of hyperbaric oxygen therapy. It is known that she tolerated the therapies well, and derived significant benefit. 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 She has also undergone several more sessions of hyperbaric oxygen therapy. She also received a series of 10 EpiFix allografts in the course of previous treatment. Each of the patient's prior courses of treatment in our facility have been protracted, with difficulties encountered in achieving complete healing. Her most recent course of treatment ended with successful healing and discharge in February 2021. The patient presented at this time with a recurrence of her right groin ulceration, again thought to be secondary to soft tissue radiation injury. The ulceration recurred spontaneously approximately 2-3 weeks prior to her presentation. The patient indicates that her health history has not changed since she was last treated in our facility. 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 Bilateral cataracts Knee pain Hemorrhoids Cancer Home Medications ?Medication ?Instructions ?Recorded ?Last Taken ?Type famotidine 20 mg tablet 20 mg PO QHS 06/20/17 Unknown History pravastatin 20 mg tablet 20 mg PO QHS 90 days ##90 12/26/17 Unknown History acetaminophen 650 mg 1,300 mg PO Q8H PRN pain 09/11/23 Unknown History tablet,extended release (8 Hour Pain Reliever) calcium carbonate (Calcium 600) 1,200 mg PO DAILY 09/11/23 Unknown History cholecalciferol (vitamin D3) 50 2,000 unit PO DAILY 09/11/23 Unknown History mcg (2,000 unit) tablet (Vitamin D3) amoxicillin 875 mg-potassium 1 tab PO BID #16 tabs 09/14/23 Unknown Rx clavulanate 125 mg tablet doxycycline hyclate 100 mg capsule 100 mg PO BID #16 caps 09/14/23 Unknown Rx celecoxib 100 mg capsule 200 mg PO BID 11/14/23 Unknown History Allergy/AdvReac Type Severity Reaction Status Date / Time No Known Allergies Allergy Verified 09/11/23 11:27 Family History Other Heart disease Hypertension Surgical History History of appendectomy Hx of AKA (above knee amputation) Social History Smoking Status: Former smoker alcohol intake: current alcohol intake frequency: holidays/special occasions only Vital Signs Vital Signs Vital Signs: 01/09/24 13:42 Temperature 98.8 F Temperature Source Temporal Pulse Rate 102 H Respiratory Rate 16 Blood Pressure 141/78 H Blood Pressure Mean 99 Blood Pressure Source Monitor Blood Pressure Position Semi-Fowlers Blood Pressure Location Left Arm Oxygen Delivery Method Room Air Weight Weight: 196 lb 1.696 oz Body Mass Index (BMI) 29.8 Physical Exam Const alert, oriented x3, no apparent distress and well nourished General Appearance: cooperative, comfortable and well kempt Orientation / Consciousness: awake, oriented to person, oriented to place and oriented to time Exam Limitations: no limitations HEENT normocephalic and head/scalp atraumatic Nose: external nose normal Eyes PERRL and EOMs intact bilaterally General Eye: normal appearance of both eyes Neck full ROM Resp normal respiratory effort, normal air movement, no retractions and no use of accessory muscles Effort and Inspection: able to speak in complete sentences Extremity Extremity Narrative: Right AKA erythematous and warm to palpation. Line drawn to leidy the area of redness. Skin Wound Narrative: The patient's right groin ulceration is now completely healed and epithelialized. There is no sign of infection or cellulitis. The patient's right above-knee amputation stump is intact. There is no sign of infection or cellulitis at this site as well. Hair: normal Neuro oriented x3, CN's II-XII intact bilaterally, moves all extremities and no focal motor deficits Sensorium / Orientation: awake, alert, oriented to person, oriented to place and oriented to time Psych affect normal Appearance: grossly normal Debridement Note Debridement Note No debridement was completed: No debridement was completed today (The patient's ulceration is now completely healed and epithelialized.) Post-Debridement Measurements and Additional Note: Post-Debridement Measurements/Treatment - Nurse 1 - General Ulcer Assessment Start: 01/09/24 13:42 Freq: Status: Active Protocol: [email or web address] Activity Type Activity Date Activity User E-sign Co-sign Detail Recorded Client Recorded Date Recorded By Document 01/09/24 13:42 KW z 01/09/24 13:46 KW 01/09/24 13:42 - Today's Visit Information Type of service Follow-up 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/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 ) Arrival Mode Ambulatory Patient Identification Verified (Name & Yes ) Height and Weight Body Mass Index (BMI) 29.8 BMI Classification Overweight Vital Signs Temperature (97.8 F-99.1 F) 98.8 F Temperature Source Temporal Pulse Rate (60-100) 102 H Pulse Location Monitor Respiratory Rate (12-18) 16 Respiratory rate source Observation Oxygen Delivery Method Room Air Blood Pressure (90/60-120/80) 141/78 H Blood Pressure Mean 99 Source Monitor Position Semi-Fowlers Blood Pressure Location Left Arm History Since Last Visit- (Skip if this is Patient's initial visit) Have you changed medications since your No last visit? Any new allergies or adverse reactions No Had a fall/change in ADL's that may No increase risk of falls Signs or symptoms of abuse and/or No neglect since last visit Have you been in the hospital since your No last visit? Has dressing in place as prescribed Yes Has compression in place as prescribed N/A Has offloadiing in place as prescribed N/A Experienced any changes in pain level or No management Left Footwear Regular Shoe Right Footwear Regular Shoe Pain Scale: 0-10 Numeric Is Patient Pain Free? Yes WC - Nurse 1 - General Ulcer Measurement Start: 01/09/24 13:42 Freq: Status: Active Protocol: Activity Type Activity Date Activity User E-sign Co-sign Detail Recorded Client Recorded Date Recorded By Document 01/09/24 13:42 KW z 01/09/24 13:46 KW 01/09/24 13:42 Wound Center Nurse 1 #11 R Groin--superior -Current Size (cm) - Length 0.1 -Current Size (cm) - Width 0.1 -Current Size (cm) - Depth 0.1 -Total Square Cm 0.01 -Date of Last Picture (Recall this 01/09/24 field) -Exudate Amt None Present -Texture (Blanche-wound Skin Appearance) Scarring -Moisture (Blanche-wound Skin Appearance) Assessed -Color (Blanche-wound Skin Appearance) Assessed -Temperature (Blanche-wound Skin No Abnormality Appearance) (Pt Warm) -Tenderness on Palpation (Blanche-wound No Skin Appearance) -Ulcer Cleansing Rinsed/ Irrigated with Saline -Foul Odor after Cleansing No -Anesthetic Used 4% Lidocaine Solution KISHA - Nurse 2 - General Ulcer CM Notes Start: 01/09/24 13:42 Freq: Status: Active Protocol: Activity Type Activity Date Activity User E-sign Co-sign Detail Recorded Client Recorded Date Recorded By Document 01/09/24 14:08 [id number] 01/09/24 14:09 01/09/24 14:08 Wound Center Nurse 2 -Correct Patient No -Correct Side, Site, Position No -Correct Procedure No -Procedure Performed No -Post Debridement (cm) - Length 0 -Post Debridement (cm) - Width 0 -Post Debridement (cm) - Depth 0 -Total Square (Post) (cm) 0 -Area of Debridement (cm) - Length 0 -Area of Debridement (cm) - Width 0 -Total Square (Area) (cm) 0 -Wound/Ulcer Outcome Healed- Epithelialized Pain Scale: 0-10 Numeric Is Patient Pain Free? Yes KISHA - Nurse 3 - General Ulcer D/C NN Start: 01/09/24 13:42 Freq: Status: Active Protocol: Activity Type Activity Date Activity User E-sign Co-sign Detail Recorded Client Recorded Date Recorded By Document 01/09/24 14:09 [id number] 01/09/24 14:09 HARDIK 01/09/24 14:09 Is Patient Pain Free? Yes WC - Visit Discharge Discharge Condition Stable Ambulatory Status Ambulatory, Crutches Transportation Private Auto Medication Reconcilliation completed & Yes provided to patient/care provider Clinical Summary of Care Provided Yes Notes: patient was healed. Dry dressing applied. 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 (2) Soft tissue radionecrosis: CODE(S): L59.8 - Other specified disorders of the skin and subcutaneous tissue related to radiation; Y84.2 - Radiological procedure and radiotherapy as the cause of abnormal reaction of the patient, or of later complication, without mention of misadventure at the time of the procedure (3) soft tissue radiation injury: (4) Radiation injury: CODE(S): T66.XXXA - Radiation sickness, unspecified, initial encounter QUALIFIERS: Encounter type: subsequent encounter Qualified Code(s): T66.XXXD - Radiation sickness, unspecified, subsequent encounter (5) History of melanoma: CODE(S): Z85.820 - Personal history of malignant melanoma of skin PLAN: Plan The patient is well-known to our facility, with a history of malignant melanoma in her right lower extremity, for which she received radiation therapy to the right limb and to the groin. Her right groin wound was due to soft tissue radionecrosis, and has been difficult to heal. She has had several previous ulcerations at this site, which have tended to recur. The patient has undergone several prior sessions of hyperbaric oxygen therapy. The patient's right groin ulceration is now completely healed and epithelialized. There is no sign of infection or cellulitis. The patient is to be discharged, and will follow-up henceforth on an as-needed basis. Total time: 22 minutes
== END 2024-01-23 08:05 | disposition home or self-care (01) ==
LOC: WC 13:41
PROVIDERS: PCP Family Medicine; Visit Provider Surgery
DX: L97.112 Non-pressure chronic ulcer of right thigh with fat layer exposed (principal); L59.8 Other specified disorders of the skin and subcutaneous tissue related to radiation; Y84.2 Radiological procedure and radiotherapy as the cause of abnormal reaction of the patient, or of later complication, without mention of misadventure at the time of the procedure; M19.90 Unspecified osteoarthritis, unspecified site; H26.9 Unspecified cataract; Z79.899 Other long term (current) drug therapy; Z87.891 Personal history of nicotine dependence; Z79.2 Long term (current) use of antibiotics; Z92.3 Personal history of irradiation; Z85.820 Personal history of malignant melanoma of skin; Z89.521 Acquired absence of right knee
CPT/HCPCS: 99213; G0463